=== PATIENT | female | born 1980 | race Caucasian/White ===

== ENCOUNTER 2019-02-11 09:00 | Emergency (ER) | payer OTHER, SELFPAY ==
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
--- OUTSIDE RECORDS SUMMARY | 2019-02-11 09:04 | XMS REPORT | Continuity of Care Document ---
:1980 Author Organization [facility] Address [address] [place] [address] Phone Unavailable Care Team Providers Name Role Phone TIM POTTER Primary Care Physician Insurance Providers Guarantor Leigh Coronado Address [address] [place] [address] Email [email or web address] Payer Low Income Program (Lmap) Policy Number [id number] Subscriber's Name Leigh Coronado Relationship Self / Same As Patient Group Number NA Group Name NA Effective Date 17 Expiration Date 18 Advance Directives Directive Response Recorded Date/Time Advance Directives No 06/26/15 2:50pm Advance Directive on File No 01/24/18 2:32pm Directive to Physicians/Living Will No 06/26/15 2:50pm Health Care Proxy No 06/26/15 2:50pm Organ Donor No 06/26/15 2:50pm Medical Power of Enterprise Business Architect No 06/26/15 2:50pm Patient/Family Given Education Material R/T Y - 01/24/18..AW 01/24/18 4:54pm Directives? Chief Complaint and Reason for Visit Chief Complaint Chest Pain Reason for Visit Chest wall pain Hypertension Problems Medical Problem Onset Date Status Acute [...] Unknown Acute Acute pulmonary embolus Unknown Acute Chest wall pain Unknown Acute Cocaine abuse Unknown Acute Elevated CK Unknown Acute Encounter for incision and drainage procedure Unknown Acute Gastritis Unknown Acute Hypertension Unknown Acute Internal derangement of right knee [...] Applicable Not Applicable Hx Physical Abuse No 01/24/2018 2:32pm Not Applicable Not Applicable Smoking Status Start Date Stop Date Current some day smoker Hospital Discharge Instructions No hospital discharge instruction information available. Plan of Care Discharge Date 01/24/18 6:05pm Instructions/Education Provided Chest Wall Pain Hypertension Forms Provided Portal Welcome Letter Prescriptions See Medication Section Referrals TIM POTTER Address: [address] [place] [phone] Additional Instructions/Education Recommend that you continue your Xarelto and will add Tylenol #3 to be taken as needed for pain. Also add Hydralazine 10 mg 2 times daily for your blood pressure. Follow up with your primary doctor in 2 days for re check of your blood pressure, or otherwise return to the ED if your condition worsens. Functional Status No functional status information available. Allergies, Adverse Reactions, Alerts Allergen Type Severity Reaction Status Last Updated Losartan ([id number]) Allergy Severe ACHING, DIFFICULTY Active 12/02/17 BREATHING Immunizations No immunization information available. Vital Signs Acute Vital Signs Vital Response Date/Time Blood Pressure 148/88 mm Hg 01/24/2018 6:32pm Pulse Pulse Rate (adult) 72 beats per minute (60 - 100) 01/24/2018 6:32pm Respiratory Rate 20 breaths per minute (10 - 24) 01/24/2018 6:32pm Temperature Source Oral 01/24/2018 6:32pm Height 6 ft 0 in 01/24/2018 2:32pm Weight 425.38 lb 01/24/2018 2:32pm Body Mass Index 57.7 kg/m^2 01/24/2018 2:32pm Results Laboratory Results Test Name Result Units Flags Reference Collection Result Comments Date/Time Date/Time Uric Acid 3.8 mg/dL 2.4-5.7 12/01/2017 12/01/2017 10:56am 11:28am Prothrombin 11.9 SECONDS 10.3-12.3 12/24/2017 12/24/2017 Time [...] 12/24/2017 Partial 6:00am 6:32am Thromboplast Time Urine HCG, NEGATIVE NEG 12/24/2017 12/24/2017 Qualitative [...] called to (LEAH). By MYRANDA APARICIO 12/24/17 @0836 Results read back for confirmation. Creatine Kinase 5.7 ng/ml H 0.0-3.6 12/24/2017 12/24/2017 MB 8:11am 8:37am DIAGNOSTIC CITERIA: CKMB CKMB RELATIVE INDEX SUGGESTIVE OF NON-AMI < or=5 N/A DE PAZ ZONE (INCONCLUSIVE) > 5 < or=4 SUGGESTIVE OF AMI >5 > 4 Myoglobin 186 ng/mL H 25-58 12/24/2017 12/24/2017 8:11am 8:38am White Blood 7.0 K/ul 4.0-11.5 01/24/2018 01/24/2018 Count 2:52am 3:10pm Red Blood Count 3.57 M/ul L 3.80-5.20 01/24/2018 01/24/2018 2:52am 3:10pm Hemoglobin 8.6 g/dl L 10.5-15.7 01/24/2018 01/24/2018 2:52am 3:10pm Hematocrit 27.6 % #L 34.0-50.0 01/24/2018 01/24/2018 2:52am 3:10pm Mean 77.4 fl L 78-98 01/24/2018 01/24/2018 Corpuscular 2:52am 3:10pm Volume Mean 24.0 pg L 26.2-33.4 01/24/2018 01/24/2018 Corpuscular 2:52am 3:10pm Hemoglobin Mean 31.0 g/dl L 31.5-36.2 01/24/2018 01/24/2018 Corpuscular 2:52am 3:10pm Hemoglobin Concent Red Cell 15.7 % H 11.5-15.5 01/24/2018 01/24/2018 Distribution 2:52am 3:10pm Width Platelet Count 289 K/ul 137-338 01/24/2018 01/24/2018 2:52am 3:10pm Mean Platelet 6.7 fl L 8.4-11.8 01/24/2018 01/24/2018 Volume 2:52am 3:10pm Neutrophils (%) 70.7 % 44.4-80.1 01/24/2018 01/24/2018 (Auto) 2:52am 3:10pm Lymphocytes (%) 20.3 % 10.0-50.0 01/24/2018 01/24/2018 (Auto) 2:52am 3:10pm Monocytes (%) 5.9 % 3.6-12.04 01/24/2018 01/24/2018 (Auto) 2:52am 3:10pm Eosinophils (%) 2.1 % 0.0-5.41 01/24/2018 01/24/2018 (Auto) 2:52am 3:10pm Basophils (%) 1.0 % H 0.0-0.79 01/24/2018 01/24/2018 (Auto) 2:52am 3:10pm D-Dimer 594 ng/mL H* <500 01/24/2018 01/24/2018 Results have been broadcasted to patient's location and 2:52am 3:30pm called to (FELIX). By MYRANDA APARICIO 01/24/18 @1528 Urine Color LIGHT 01/24/2018 01/24/2018 YELLOW 3:08pm 3:50pm Urine CLEAR CLEAR 01/24/2018 01/24/2018 Appearance 3:08pm 3:50pm Urine Glucose NEGATIVE NEGATIVE 01/24/2018 01/24/2018 3:08pm 3:50pm Urine Bilirubin NEGATIVE NEGATIVE 01/24/2018 01/24/2018 3:08pm 3:50pm Urine Ketones NEGATIVE NEGATIVE 01/24/2018 01/24/2018 3:08pm 3:50pm Urine Specific 1.014 1.003-1.03 01/24/2018 01/24/2018 [place] 0 3:08pm 3:50pm Urine Blood NEGATIVE NEGATIVE 01/24/2018 01/24/2018 3:08pm 3:50pm Urine pH 6.500 5-9 01/24/2018 01/24/2018 3:08pm 3:50pm Urine Protein NEGATIVE NEGATIVE 01/24/2018 01/24/2018 3:08pm 3:50pm Urine NORMAL mg/dL 0.2-1.0 01/24/2018 01/24/2018 Urobilinogen 3:08pm 3:50pm Urine Nitrate NEGATIVE NEGATIVE 01/24/2018 01/24/2018 3:08pm 3:50pm Urine Leukocyte NEGATIVE NEGATIVE 01/24/2018 01/24/2018 Esterase 3:08pm 3:50pm Urine RBC 1-5 /hpf 0-5 01/24/2018 01/24/2018 3:08pm 3:50pm Urine WBC 1-5 /hpf 0-5 01/24/2018 01/24/2018 3:08pm 3:50pm Urine 1-5 /hpf 0-5 01/24/2018 01/24/2018 Epithelial 3:08pm 3:50pm Cells Urine Bacteria SMALL(1+) /hpf None 01/24/2018 01/24/2018 Detect 3:08pm 3:50pm Urine Casts None /lpf None 01/24/2018 01/24/2018 Detected Detect 3:08pm 3:50pm Urine Culture YES 01/24/2018 01/24/2018 Reflexed 3:08pm 3:50pm Random Glucose 117 mg/dL H 74-106 01/24/2018 01/24/2018 2:52am 3:13pm Blood Urea 11 mg/dL 6-20 01/24/2018 01/24/2018 Nitrogen 2:52am 3:13pm Serum 276 L 280-300 01/24/2018 01/24/2018 Osmolality 2:52am 3:13pm Creatinine 0.7 mg/dL 0.50-0.90 01/24/2018 01/24/2018 2:52am 3:13pm Glomerular > 60.00 01/24/2018 01/24/2018 GFR RESULTS ARE REPORTED IN mL/min/1.73m2. Filtration Rate 2:52am 3:13pm Calc Normal GFR: >60mL/min Moderately decreased GFR: 30-59 mL/min Severely decreased GFR: 15-29 mL/min Kidney Failure (or Dialysis): <15 mL/min The calculated eGFR is not valid for patients younger than 18 years or older than 75 years. BUN/Creatinine 15.7 12-01/24/2018 01/24/2018 Ratio 2:52am 3:13pm Sodium Level 138 mmol/L 135-145 01/24/2018 01/24/2018 2:52am 3:13pm Potassium Level 4.5 mmol/L 3.5-5.2 01/24/2018 01/24/2018 2:52am 3:13pm Chloride Level 102 mmol/L 98-108 01/24/2018 01/24/2018 2:52am 3:13pm Carbon Dioxide 25 mmol/L 21-32 01/24/2018 01/24/2018 Level 2:52am 3:13pm Anion Gap 15.5 mEq/L 12-20 01/24/2018 01/24/2018 2:52am 3:13pm Calcium Level 8.9 mg/dL 8.6-10.0 01/24/2018 01/24/2018 2:52am 3:13pm Magnesium Level 1.6 mg/dL 1.6-2.6 01/24/2018 01/24/2018 2:52am 3:15pm Total Protein 6.5 g/dL L 6.6-8.7 01/24/2018 01/24/2018 2:52am 3:13pm Albumin 3.6 g/dL 3.5-5.2 01/24/2018 01/24/2018 2:52am 3:13pm Globulin 2.9 gm/dL 01/24/2018 01/24/2018 2:52am 3:13pm Albumin/Globuli 1.2 >1.0 01/24/2018 01/24/2018 n Ratio 2:52am 3:13pm Total Bilirubin < 0.3 mg/dL 0.0-1.2 01/24/2018 01/24/2018 2:52am 3:13pm Aspartate Amino 20 U/L 15-32 01/24/2018 01/24/2018 Transf 2:52am 3:13pm (AST/SGOT) Alanine 25 U/L 0-33 01/24/2018 01/24/2018 Aminotransferas 2:52am 3:13pm e (ALT/SGPT) CF-Vpr-M-Type 507 pg/mL H 0-125 01/24/2018 01/24/2018 Natriuretic 2:52am 3:30pm Peptide Total Alkaline 98 U/L 35-105 01/24/2018 01/24/2018 Phosphatase 2:52am 3:13pm Urine NEGATIVE NG/ML NEGATIVE 01/24/2018 01/24/2018 Amphetamines 3:08pm 3:56pm Screen Urine NEGATIVE NG/ML NEGATIVE 01/24/2018 01/24/2018 Barbiturates, 3:08pm 3:56pm Quantitative Urine NEGATIVE NG/ML NEGATIVE 01/24/2018 01/24/2018 Benzodiazepines 3:08pm 3:56pm Screen Urine POSITIVE NG/ML H NEGATIVE 01/24/2018 01/24/2018 Cannabinoids 3:08pm 4:18pm Urine Cocaine NEGATIVE NG/ML NEGATIVE 01/24/2018 01/24/2018 Metabolite 3:08pm 3:56pm Urine Opiates NEGATIVE NG/ML NEGATIVE 01/24/2018 01/24/2018 Screen 3:08pm 3:56pm Urine NEGATIVE NG/ML NEGATIVE 01/24/2018 01/24/2018 Phencyclidine 3:08pm 3:56pm (PCP) Level Methadone Level NEGATIVE NG/ML NEGATIVE 01/24/2018 01/24/2018 3:08pm 3:56pm Propoxyphene NEGATIVE NG/ML NEGATIVE 01/24/2018 01/24/2018 Level 3:08pm 3:56pm Oxycodone Level NEGATIVE NG/ML NEGATIVE 01/24/2018 01/24/2018 3:08pm 3:56pm Urine Drug . 01/24/2018 01/24/2018 DRUGS OF ABUSE CUT-OFF VALUES Screen Note 3:08pm 4:17pm AMPHETAMINES (AMPH) NEGATIVE (CUT OFF CONC: 1000 [...] CONFIRMATION AND QUANTITATION AVAILABLE UPON MD REQUEST. Thyroid 1.66 uIU/mL 0.36-3.74 01/24/2018 01/24/2018 Stimulating 2:52am 3:30pm Hormone (TSH) Troponin I < 0.30 ng/mL 0.0-0.5 01/24/2018 01/24/2018 Published clinical studies have shown elevations of cTnI in 2:52am 3:30pm patients with myocardial injury, as seen in unstable angina pectoris, cardiac contusions, and heart transplants. Elevations have also been seen in patients with rhabdomyolysis and polymyositis. Elevated troponin levels point to myocardial injury, but are not necessarily indicative of an ischemic mechanism. The term IN should be used when there is evidence of cardiac damage, as detected by marker proteins in a clinical setting consistent with myocardial ischemia. If the clinical circumstance suggests that an ischemic mechanism is unlikely, other causes of cardiac injury should be considered. For diagnostic purposes, the results should always be assessed in conjunction with the patient's medical history, clinical examination and other findings. Procedures Procedure Status Date Provider(s) CT ANGIOGRAPHY CHEST Completed 12/01/17 X-RAY EXAM [...] Completed 12/01/17 CT ANGIOGRAPHY CHEST Completed 12/10/17 EMERGENCY DEPT VISIT Completed 12/24/17 THER/PROPH/DIAG INJ IV PUSH Completed 12/24/17 HYDRATE IV INFUSION ADD-ON Completed 12/24/17 X-RAY EXAM CHEST 1 VIEW Completed 12/24/17 TX/PRO/DX INJ NEW DRUG ADDON Completed 12/24/17 COMPLETE CBC W/AUTO DIFF WBC Completed 12/24/17 CREATINE MB FRACTION Completed 12/24/17 CREATINE MB FRACTION Completed 12/24/17 ASSAY OF CK (CPK) Completed 12/24/17 ASSAY OF CK (CPK) Completed 12/24/17 ASSAY OF MAGNESIUM Completed 12/24/17 ASSAY OF MYOGLOBIN Completed 12/24/17 ASSAY OF MYOGLOBIN Completed 12/24/17 PROTHROMBIN TIME Completed 12/24/17 THROMBOPLASTIN TIME PARTIAL Completed 12/24/17 ROUTINE VENIPUNCTURE Completed 12/24/17 ASSAY OF TROPONIN QUANT Completed 12/24/17 ASSAY OF TROPONIN QUANT Completed 12/24/17 COMPREHEN METABOLIC PANEL Completed 12/24/17 ASSAY OF NATRIURETIC PEPTIDE Completed 12/24/17 DRUG TEST PRSMV CHEM ANLYZR Completed 12/24/17 URINE TEST Completed 12/24/17 ELECTROCARDIOGRAM TRACING Completed 12/24/17 URINALYSIS AUTO W/SCOPE Completed 12/24/17 CT ANGIOGRAPHY CHEST Completed 01/05/18 COMPLETE CBC W/AUTO DIFF WBC Completed 01/12/18 ROUTINE VENIPUNCTURE Completed 01/12/18 Computed tomography angiography of chest Completed 12/01/17 TIM POTTER for pulmonary embolism X-ray of chest, two views Completed 12/01/17 TIM POTTER Computed tomography angiography of chest Completed 12/03/17 FARSHAD FAITH JR, MD for pulmonary embolism X-ray of chest, single view Completed 12/03/17 KRISTEN SERNA AIRPORT ENGINEER-C Computed tomography angiography of chest Completed 12/10/17 CEDRICK CORTÉS MD for pulmonary embolism X-ray of chest, single view Completed 12/24/17 JACKSON MCFARLANE MD Computed tomography angiography of chest Completed 01/05/18 TIM POTTER for pulmonary embolism Computed tomography angiography of chest Completed 01/24/18 LALITHA ANGLIN MD for pulmonary embolism Encounters Encounter Location Arrival/Admit Date Discharge/Depart Date Attending Provider Departed [place] 01/24/18 2:28pm 01/24/18 6:05pm LALITHA ANGLIN [facility] Registered [place] 01/12/18 11:53am TIM POTTER [facility] Registered [facility] 01/12/18 9:53am TIM POTTER Provider Clinic PA Originated Registered [place] 01/05/18 8:05am TIM POTTER [facility] Departed [place] 12/24/17 5:55am 12/24/17 9:58am MAEVE [facility] Registered [place] 12/10/17 12:45pm CEDRICK CORTÉS MD Medical Ctr Registered [facility] 12/06/17 9:37am TIM POTTER Provider Clinic PA Originated Discharged [place] 12/01/17 2:06pm 12/04/17 3:00pm MARCELL LOPEZ, Inpatient [facility] FARSHAD Elder MD Medical Ctr Registered [place] 12/01/17 10:35am TIM POTTER [facility] Registered [facility] 12/01/17 8:28am TIM POTTER Provider Clinic PA Originated Recent Diagnosis
--- OUTSIDE RECORDS SUMMARY | 2019-02-11 09:04 | XMS REPORT | Continuity of Care Document ---
:1980 Author Organization [facility] Address [address] [place] [address] Phone Unavailable Care Team Providers Name Role Phone TIM POTTER Primary Care Physician Insurance Providers Guarantor Shasta Coronado Address [address] [phone] Email [email or web address] Payer Indigent Care Program (Map) Policy Number [id number] Subscriber's Name Shasta Coronado Relationship Self / Same As Patient Group Number NA Group Name NA Effective Date 18 Expiration Date 18 Advance Directives Directive Response Recorded Date/Time Advance Directives No 06/26/15 2:50pm Directive to Physicians/Living Will No 06/26/15 2:50pm Health Care Proxy No 06/26/15 2:50pm Organ Donor No 06/26/15 2:50pm Medical Power of Nurse Midwife/Clinical Instructor No 06/26/15 2:50pm Problems Medical Problem Onset Date Status Acute [...] Lovastatin 40 Mg ORAL Once Daily At (Lovastatin 20 Mg Bedtime for Days Tablet [...] Current some day smoker Hospital Discharge Instructions Current inpatient/outpatient. Discharge instructions are currently unavailable. Plan of Care Current inpatient/outpatient. The plan of care is currently unavailable. Functional Status No functional status information available. Allergies, Adverse Reactions, Alerts Allergen Type Severity Reaction Status Last Updated Losartan ([id number]) Allergy Severe ACHING, DIFFICULTY Active 12/02/17 BREATHING Immunizations No immunization information available. Vital Signs Acute Vital Signs Vital Response Date/Time Blood Pressure 171/83 mm Hg 01/25/2018 6:21pm Pulse Pulse Rate (adult) 69 beats per minute (60 - 100) 01/25/2018 6:21pm Respiratory Rate 18 breaths per minute (10 - 24) 01/25/2018 2:24pm Temperature Source Temporal Artery Scan 01/25/2018 3:32pm Results Laboratory Results Test Name Result Units Flags Reference Collection Result Comments Date/Time Date/Time Prothrombin 11.9 SECONDS 10.3-12.3 12/24/2017 12/24/2017 Time [...] 12/24/17 @0838 Results read back for confirmation. Creatine Kinase 5.7 ng/ml H 0.0-3.6 12/24/2017 12/24/2017 MB 8:11am 8:37am DIAGNOSTIC CITERIA: CKMB CKMB RELATIVE INDEX SUGGESTIVE OF NON-AMI < or=5 N/A DE PAZ ZONE (INCONCLUSIVE) > 5 < or=4 SUGGESTIVE OF AMI >5 > 4 Myoglobin 186 ng/mL H 25-58 12/24/2017 12/24/2017 8:11am 8:38am D-Dimer 594 ng/mL H* <500 01/24/2018 01/24/2018 [...] 3:50pm Urine Specific 1.014 1.003-1.03 01/24/2018 01/24/2018 [place] 0 3:08pm 3:50pm Urine Blood NEGATIVE NEGATIVE [...] or older than 75 years. BUN/Creatinine 15.7 12-20 01/24/2018 01/24/2018 Ratio 2:52am 3:13pm Sodium Level 138 mmol/L 135-145 01/24/2018 01/24/2018 2:52am 3:13pm Potassium Level 4.5 mmol/L 3.5-5.2 01/24/2018 01/24/2018 2:52am 3:13pm Chloride Level 102 mmol/L 98-108 01/24/2018 01/24/2018 2:52am 3:13pm Carbon Dioxide 25 mmol/L 21-32 01/24/2018 01/24/2018 Level 2:52am 3:13pm Anion Gap 15.5 mEq/L 12-01/24/2018 01/24/2018 2:52am 3:13pm Calcium Level 8.9 mg/dL [...] 01/24/2018 01/24/2018 Aminotransferas 2:52am 3:13pm e (ALT/SGPT) XG-Ekc-T-Type 507 pg/mL H 0-125 01/24/2018 01/24/2018 Natriuretic [...] indicative of an ischemic mechanism. The term NH should be used when there is evidence of cardiac damage, as detected by marker proteins in a clinical setting consistent with myocardial ischemia. If the clinical circumstance suggests that an ischemic mechanism is unlikely, other causes of cardiac injury should be considered. For diagnostic purposes, the results should always be assessed in conjunction with the patient's medical history, clinical examination and other findings. White Blood 7.2 K/ul 4.0-11.5 02/01/2018 02/01/2018 Count 9:04am 9:44am Red Blood Count 4.75 M/ul 3.80-5.20 02/01/2018 02/01/2018 9:04am 9:44am Hemoglobin 11.8 g/dl 10.5-15.7 02/01/2018 02/01/2018 9:04am 9:44am Hematocrit 37.3 % # 34.0-50.0 02/01/2018 02/01/2018 9:04am 9:44am Mean 78.5 fl 78-98 02/01/2018 02/01/2018 Corpuscular 9:04am 9:44am Volume Mean 24.9 pg L 26.2-33.4 02/01/2018 02/01/2018 Corpuscular 9:04am 9:44am Hemoglobin Mean 31.7 g/dl 31.5-36.2 02/01/2018 02/01/2018 Corpuscular 9:04am 9:44am Hemoglobin Concent Red Cell 16.2 % H 11.5-15.5 02/01/2018 02/01/2018 Distribution 9:04am 9:44am Width Platelet Count 287 K/ul 137-338 02/01/2018 02/01/2018 9:04am 9:44am Mean Platelet 6.3 fl L 8.4-11.8 02/01/2018 02/01/2018 Volume 9:04am 9:44am Neutrophils (%) 60.2 % 44.4-80.1 02/01/2018 02/01/2018 (Auto) 9:04am 9:44am Lymphocytes (%) 29.0 % 10.0-50.0 02/01/2018 02/01/2018 (Auto) 9:04am 9:44am Monocytes (%) 7.5 % 3.6-12.04 02/01/2018 02/01/2018 (Auto) 9:04am 9:44am Eosinophils (%) 2.1 % 0.0-5.41 02/01/2018 02/01/2018 (Auto) 9:04am 9:44am Basophils (%) 1.2 % H 0.0-0.79 02/01/2018 02/01/2018 (Auto) 9:04am 9:44am Vitamin B12 454.3 pg/mL 211-946 02/15/2018 02/15/2018 Level 10:18am 11:11am Folate 9.21 ng/mL 4.78-24.2 02/15/2018 02/15/2018 10:18am 11:11am Procedures Procedure Status Date Provider(s) EMERGENCY DEPT VISIT Completed 12/24/17 THER/PROPH/DIAG INJ [...] WBC Completed 01/12/18 ROUTINE VENIPUNCTURE Completed 01/12/18 EMERGENCY DEPT VISIT Completed 01/24/18 CT ANGIOGRAPHY CHEST Completed 01/24/18 THER/PROPH/DIAG INJ IV PUSH Completed 01/24/18 TX/PRO/DX INJ NEW DRUG ADDON Completed 01/24/18 COMPLETE CBC W/AUTO DIFF WBC Completed 01/24/18 ASSAY OF MAGNESIUM Completed 01/24/18 ASSAY THYROID STIM HORMONE Completed 01/24/18 URINALYSIS AUTO W/SCOPE Completed 01/24/18 ROUTINE VENIPUNCTURE Completed 01/24/18 ASSAY OF TROPONIN QUANT Completed 01/24/18 COMPREHEN METABOLIC PANEL Completed 01/24/18 FIBRIN DEGRADJ D-DIMER Completed 01/24/18 ASSAY OF NATRIURETIC PEPTIDE Completed 01/24/18 URINE BACTERIA CULTURE Completed 01/24/18 DRUG TEST PRSMV CHEM ANLYZR Completed 01/24/18 ELECTROCARDIOGRAM TRACING Completed 01/24/18 TX/PRO/DX INJ SAME DRUG PATTERN KEEPER Completed 01/24/18 Completed 01/24/18 MORPHINE SULFATE INJECTION Completed 01/24/18 MORPHINE SULFATE INJECTION Completed 01/24/18 CONTRST X-RAY UPPR GI TRACT Completed 01/27/18 COMPLETE CBC W/AUTO DIFF WBC Completed 02/01/18 ROUTINE VENIPUNCTURE Completed 02/01/18 VITAMIN B-12 Completed 02/15/18 ASSAY OF FOLIC ACID SERUM Completed 02/15/18 ROUTINE VENIPUNCTURE Completed 02/15/18 X-ray of chest, single view Completed 12/24/17 JACKSON MCFARLANE MD Computed tomography angiography of chest Completed 01/05/18 TIM POTTER for pulmonary embolism Computed tomography angiography of chest Completed 01/24/18 LALITHA ANGLIN MD for pulmonary embolism X-ray of upper gastrointestinal tract with Completed 01/27/18 TIM POTTER small bowel follow through Encounters Encounter Location Arrival/Admit Date Discharge/Depart Date Attending Provider Registered [place] 02/15/18 10:09am TIM POTTER [facility] Registered [facility] 02/01/18 9:52am TIM POTTER Provider Clinic PA Originated Registered [place] 02/01/18 8:52am TIM POTTER [facility] Registered [place] 01/27/18 8:10am TIM POTTER [facility] Discharged [place] 01/25/18 1:12pm 02/18/18 11:59pm TIM POTTER [facility] Registered [facility] 01/25/18 10:52am TIM POTTER Provider Clinic PA Originated Departed [place] 01/24/18 2:28pm 01/24/18 6:05pm LALITHA ANGLIN Emergency Room [facility] Registered [place] 01/12/18 11:53am TIM POTTER [facility] Registered [facility] 01/12/18 9:53am TIM POTTER Provider Clinic PA Originated Registered [place] 01/05/18 8:05am TIM POTTER [facility] Departed [place] 12/24/17 5:55am 12/24/17 9:58am MAEVE Emergency Room [facility] Farfan MD Medical Ctr
--- OUTSIDE RECORDS SUMMARY | 2019-02-11 09:05 | XMS REPORT | Continuity of Care Document ---
:1980 Author Organization [facility] Address [address] [place] [address] Phone Unavailable Care Team Providers Name Role Phone TMI POTTER Primary Care Physician Insurance Providers Guarantor Shasta Coronado Address [address] [place] [address] Email Payer Indigent Care Program (Map) Policy Number [id number] Subscriber's Name Shasta Coronado Relationship Self / Same As Patient Group Number NA Group Name NA Effective Date 18 Expiration Date 18 Advance Directives Directive Response Recorded Date/Time Advance Directives No 06/26/15 2:50pm Advance Directive on File No 03/23/18 12:10pm Directive to Physicians/Living Will No 06/26/15 2:50pm Health Care Proxy No 06/26/15 2:50pm Organ Donor No 06/26/15 2:50pm Medical Power of Suede Cleaner No 06/26/15 2:50pm Patient/Family Given Education Material R/T Y - 03/23/18....SBM 03/23/18 12 :47pm Directives? Chief Complaint and Reason for Visit Chief Complaint Back Pain or Injury Reason for Visit Muscle spasm Lumbar pain Fall Problems Medical Problem Onset Date Status Acute [...] for incision and drainage procedure Unknown Acute Fall Unknown Acute Gastritis Unknown Acute Hypertension Unknown Acute Internal derangement of right knee Unknown Acute Lumbar pain Unknown Acute Muscle spasm Unknown Acute Musculoskeletal back pain Unknown Acute [...] Applicable Not Applicable Hx Physical Abuse No 03/23/2018 12:10pm Not Applicable Not Applicable Smoking Status Start Date Stop Date Current some day smoker Hospital Discharge Instructions No hospital discharge instruction information available. Plan of Care Discharge Date 03/23/18 1:34pm Instructions/Education Provided Back Pain, Adult Fall Prevention in the Home Forms Provided Portal Welcome Letter Prescriptions See Medication Section Referrals TIM POTTER Address: [address] [place] [id number] Additional Instructions/Education DIAGNOSIS: BACK PAIN, MUSCLE SPASMS, FALL PRESCRIPTIONS: TYLENOL #3 ONE TAB EVERY 8 HOURS NEEDED FOR PAIN (12 TABS), FLEXERIL 10MG BY MOUTH UP TO 3 TIMES A DAYS NEEDED FOR MUSCLE SPASMS (12 TABS)-- GIVEN FLEXERIL, TORADOL, DEMEROL AND PHENERGAN IN ER FOLLOW UP: WITH PRIMARY CARE IN 2 DAYS * RETURN TO EMERGENCY DEPARTMENT FOR ANY CHANGE IN CONDITION OR WORSENING* INSTRUCTIONS: DRINK PLENTY OF FLUIDS IBUPROFEN PER BOTTLE DIRECTIONS EVERY 8 HOURS FOR PAIN ICE PACKS AND WARM COMPRESSES ALTERNATING STRETCHING EXERCISES Functional Status No functional status information available. Allergies, Adverse Reactions, Alerts Allergen Type Severity Reaction Status Last Updated Losartan ([id number]) Allergy Severe ACHING, DIFFICULTY Active 12/02/17 BREATHING Immunizations No immunization information available. Vital Signs Acute Vital Signs Vital Response Date/Time Blood Pressure 141/86 mm Hg 03/23/2018 1:37pm Pulse Pulse Rate (adult) 120 beats per minute (60 - 100) 03/23/2018 1:37pm Respiratory Rate 22 breaths per minute (10 - 24) 03/23/2018 1:37pm Temperature Source Oral 03/23/2018 1:37pm Height 6 ft 0 in 03/23/2018 12:10pm Weight 400 lb 03/23/2018 12:10pm Body Mass Index 54.2 kg/m^2 03/23/2018 12:10pm Results Laboratory Results Test Name Result Units Flags Reference Collection Result Comments Date/Time Date/Time D-Dimer 594 ng/mL H* <500 01/24/2018 01/24/2018 Results have been broadcasted to patient's location and 2:52am 3:30pm called to (FELIX). By MYRANDA APARICIO 01/24/18 @1528 Urine Color LIGHT 01/24/2018 01/24/2018 YELLOW 3:08pm 3:50pm Urine Appearance CLEAR CLEAR 01/24/2018 01/24/2018 3:08pm 3:50pm Urine Glucose NEGATIVE NEGATIVE 01/24/2018 01/24/2018 3:08pm 3:50pm Urine Bilirubin NEGATIVE NEGATIVE 01/24/2018 01/24/2018 3:08pm 3:50pm Urine Ketones NEGATIVE NEGATIVE 01/24/2018 01/24/2018 3:08pm 3:50pm Urine Specific 1.014 1.003-1.03 01/24/2018 01/24/2018 Bradley 0 3:08pm 3:50pm Urine Blood NEGATIVE NEGATIVE [...] /hpf 0-5 01/24/2018 01/24/2018 3:08pm 3:50pm Urine Epithelial 1-5 /hpf 0-5 01/24/2018 01/24/2018 Cells 3:08pm 3:50pm Urine Bacteria SMALL(1+) /hpf None 01/24/2018 01/24/2018 Detect 3:08pm 3:50pm Urine Casts None /lpf None 01/24/2018 01/24/2018 Detected Detect 3:08pm 3:50pm Urine Culture YES 01/24/2018 01/24/2018 Reflexed 3:08pm 3:50pm Random Glucose 117 mg/dL H 74-106 01/24/2018 01/24/2018 2:52am 3:13pm Blood Urea 11 mg/dL 6-20 01/24/2018 01/24/2018 Nitrogen 2:52am 3:13pm Serum Osmolality 276 L 280-300 01/24/2018 01/24/2018 2:52am 3:13pm Creatinine 0.7 mg/dL 0.50-0.90 01/24/2018 [...] Globulin 2.9 gm/dL 01/24/2018 01/24/2018 2:52am 3:13pm Albumin/Globulin 1.2 >1.0 01/24/2018 01/24/2018 Ratio 2:52am 3:13pm Total Bilirubin < 0.3 mg/dL 0.0-1.2 01/24/2018 01/24/2018 2:52am 3:13pm Aspartate Amino 20 U/L 15-32 01/24/2018 01/24/2018 Transf (AST/SGOT) 2:52am 3:13pm Alanine 25 U/L 0-33 01/24/2018 01/24/2018 Aminotransferase 2:52am 3:13pm (ALT/SGPT) EP-Mho-Y-Type 507 pg/mL H 0-125 01/24/2018 01/24/2018 Natriuretic [...] NEGATIVE 01/24/2018 01/24/2018 3:08pm 3:56pm Urine Drug Screen . 01/24/2018 01/24/2018 DRUGS OF ABUSE CUT-OFF VALUES Note 3:08pm 4:17pm AMPHETAMINES (AMPH) NEGATIVE (CUT [...] indicative of an ischemic mechanism. The term DE should be used when there is evidence [...] clinical examination and other findings. White Blood Count 7.2 K/ul 4.0-11.5 02/01/2018 02/01/2018 9:04am 9:44am Red Blood Count 4.75 M/ul 3.80-5.20 02/01/2018 02/01/2018 9:04am 9:44am Hemoglobin 11.8 g/dl 10.5-15.7 02/01/2018 02/01/2018 9:04am 9:44am Hematocrit 37.3 % # 34.0-50.0 02/01/2018 02/01/2018 9:04am 9:44am Mean Corpuscular 78.5 fl 78-98 02/01/2018 02/01/2018 Volume 9:04am 9:44am Mean Corpuscular 24.9 pg L 26.2-33.4 02/01/2018 02/01/2018 Hemoglobin 9:04am 9:44am Mean Corpuscular 31.7 g/dl 31.5-36.2 02/01/2018 02/01/2018 Hemoglobin 9:04am 9:44am Concent Red Cell 16.2 % H 11.5-15.5 [...] 02/01/2018 02/01/2018 (Auto) 9:04am 9:44am Vitamin B12 Level 454.3 pg/mL 211-946 02/15/2018 02/15/2018 10:18am 11:11am Folate 9.21 ng/mL 4.78-24.2 02/15/2018 02/15/2018 10:18am 11:11am Procedures Procedure Status Date Provider(s) EMERGENCY DEPT VISIT Completed 01/24/18 CT ANGIOGRAPHY [...] TRACING Completed 01/24/18 [place]/PRO/DX INJ SAME DRUG FRONT END DEVELOPER JAVASCRIPT HTML CSS Completed 01/24/18 Completed 01/24/18 MORPHINE SULFATE INJECTION Completed 01/24/18 MORPHINE SULFATE INJECTION Completed 01/24/18 CONTRST X-RAY UPPR GI TRACT Completed 01/27/18 COMPLETE CBC W/AUTO DIFF WBC Completed 02/01/18 ROUTINE VENIPUNCTURE Completed 02/01/18 VITAMIN B-12 Completed 02/15/18 ASSAY OF FOLIC ACID SERUM Completed 02/15/18 ROUTINE VENIPUNCTURE Completed 02/15/18 Computed tomography angiography of Completed 01/24/18 LALITHA ANGLIN MD chest for pulmonary embolism X-ray of upper gastrointestinal Completed 01/27/18 TIM POTTER tract with small bowel follow through X-ray of sacrum and coccyx, two or Completed 03/23/18 ALLISON CHAN APRN , SALES ORDER COORDINATOR-BC more views X-ray of lumbar spine, AP and Completed 03/23/18 ALLISON CHAN SYSTEM DEVELOPMENT MANAGER, SALES ORDER COORDINATOR -BC lateral views Encounters Encounter Location Arrival/Admit Date Discharge/Depart Date Attending Provider Departed [place] 03/23/18 12:01pm 03/23/18 1:34pm LAYA HAWKINS MD Emergency Room [facility] Registered [place] 02/15/18 10:09am TIM POTTER [facility] Registered [facility] 02/01/18 9:52am TIM POTTER [facility] Originated Registered [place] 02/01/18 8:52am TIM POTTER [facility] Registered [place] 01/27/18 8:10am TIM POTTER [facility] Discharged [place] 01/25/18 1:12pm 02/18/18 11:59pm TIM POTTER [facility] Registered [facility] 01/25/18 10:52am TIM POTTER [facility] Orig[facility] Departed [place] 01/24/18 2:28pm 01/24/18 6:05pm LALITHA ANGLIN Emergency Room [facility] Recent Diagnosis
--- OUTSIDE RECORDS SUMMARY | 2019-02-11 09:05 | XMS REPORT | Continuity of Care Document ---
:1980 Author Organization [facility] Address [address] [place] [address] Phone Unavailable Care Team Providers Name Role Phone TIM POTTER Primary Care Physician Insurance Providers Guarantor Shasta Coronado Address [address] [place] [address] Email [email or web address] Payer Indigent Care Program (Map) Policy Number [id number] Subscriber's Name Shasta Coronado Relationship Self / Same As Patient Group Number NA Group Name NA Effective Date 18 Expiration Date 18 Advance Directives Directive Response Recorded Date/Time Advance Directives No 06/26/15 2:50pm Directive to Physicians/Living Will No 06/26/15 2:50pm Health Care Proxy No 06/26/15 2:50pm Organ Donor No 06/26/15 2:50pm Medical Power of Engineering Clerk No 06/26/15 2:50pm Patient/Family Given Education Material R/T Y - 05/10/18....SBM 05/10/18 3: 47pm Directives? Chief Complaint and Reason for Visit Chief Complaint Influenza Reason for Visit Influenza-like illness Problems Medical Problem Onset Date Status Acute [...] Tab, 1 Tab Oral Levofloxacin (Levaquin 500 Mg *) Daily for Infection 10/01/16 Discontinued 500 Mg [...] 1 Cap Oral Tramadol Hcl (Ultram 50 Mg *) 50 Three Times A Day Discontinued Mg Tab, 50 Mg Oral Social History Social History Problem Response Recorded Date/Time Onset Date Status Hx Alcohol Use No 10/21/2017 7:38am Not Applicable Not Applicable Hx Physical Abuse No 05/10/2018 3:26pm Not Applicable Not Applicable Smoking Status Start Date Stop Date Current some day smoker Hospital Discharge Instructions No hospital discharge instruction information available. Plan of Care Discharge Date 05/10/18 4:52pm Instructions/Education Provided Viral Respiratory Infection, [id number] Forms Provided Portal Welcome Letter Prescriptions See Medication Section Referrals TIM POTTER Address: [address] [place] [id number] Additional Instructions/Education Rx Proair MDI, re-eval by clinic MD in 1 week Functional Status No functional status information available. Allergies, Adverse Reactions, Alerts Allergen Type Severity Reaction Status Last Updated Losartan ([id number]) Allergy Severe ACHING, DIFFICULTY Active 12/02/17 BREATHING Immunizations No immunization information available. Vital Signs Acute Vital Signs Vital Response Date/Time Blood Pressure 172/93 mm Hg 05/10/2018 4:54pm Pulse Pulse Rate (adult) 69 beats per minute (60 - 100) 05/10/2018 4:54pm Respiratory Rate 20 breaths per minute (10 - 24) 05/10/2018 4:54pm Temperature Source Oral 05/10/2018 4:54pm Height 6 ft 0 in 05/10/2018 3:26pm Weight 400 lb 05/10/2018 3:26pm Body Mass Index 54.2 kg/m^2 05/10/2018 3:26pm Results Laboratory Results Test Name Result Units Flags Reference Collection Result Comments Date/Time Date/Time Urine Color YELLOW 04/25/2018 04/25/2018 10:20am 10:51am Urine Appearance SL CLOUDY A CLEAR 04/25/2018 04/25/2018 10:20am 10:51am Urine Glucose NEGATIVE NEGATIVE 04/25/2018 04/25/2018 10:20am 10:51am Urine Bilirubin NEGATIVE NEGATIVE 04/25/2018 04/25/2018 10:20am 10:51am Urine Ketones NEGATIVE NEGATIVE 04/25/2018 04/25/2018 10:20am 10:51am Urine Specific 1.030 1.003-1.03 04/25/2018 04/25/2018 [place] 0 10:20am 10:51am Urine Blood NEGATIVE NEGATIVE 04/25/2018 04/25/2018 10:20am 10:51am Urine pH 6.000 5-9 04/25/2018 04/25/2018 10:20am 10:51am Urine Protein TRACE NEGATIVE 04/25/2018 04/25/2018 10:20am 10:51am Urine Urobilinogen NORMAL mg/dL 0.2-1.0 04/25/2018 04/25/2018 10:20am 10:51am Urine Nitrate NEGATIVE NEGATIVE 04/25/2018 04/25/2018 10:20am 10:51am Urine Leukocyte NEGATIVE NEGATIVE 04/25/2018 04/25/2018 Esterase 10:20am 10:51am Urine RBC 1-5 /hpf 0-5 04/25/2018 04/25/2018 10:20am 10:50am Urine WBC 1-5 /hpf 0-5 04/25/2018 04/25/2018 10:20am 10:50am Urine Epithelial 6-10 /hpf 0-5 04/25/2018 04/25/2018 Cells 10:20am 10:50am Urine Bacteria MODERATE /hpf H None 04/25/2018 04/25/2018 (2+) Detect 10:20am 10:50am Urine Casts 2-5 /lpf None 04/25/2018 04/25/2018 Detect 10:20am 10:50am Urine Culture YES 04/25/2018 04/25/2018 Reflexed 10:20am 10:50am Random Glucose 115 mg/dL H 74-106 04/25/2018 04/25/2018 10:20am 10:49am Blood Urea 14 mg/dL 6-20 04/25/2018 04/25/2018 Nitrogen 10:20am 10:49am Serum Osmolality 275 L 280-300 04/25/2018 04/25/2018 10:20am 10:49am Creatinine 0.7 mg/dL 0.50-0.90 04/25/2018 04/25/2018 10:20am 10:49am Glomerular > 60.00 04/25/2018 04/25/2018 GFR RESULTS ARE REPORTED IN mL/min/1.73m2. Filtration Rate 10:20am 10:49am Calc Normal GFR: >60mL/min Moderately decreased GFR: 30-59 mL/min Severely decreased GFR: 15-29 mL/min Kidney Failure (or Dialysis): <15 mL/min The calculated eGFR is not valid for patients younger than 18 years or older than 75 years. BUN/Creatinine 20.0 12-04/25/2018 04/25/2018 Ratio 10:20am 10:49am Sodium Level 137 mmol/L 135-145 04/25/2018 04/25/2018 10:20am 10:49am Potassium Level 4.4 mmol/L 3.5-5.2 04/25/2018 04/25/2018 10:20am 10:49am Chloride Level 103 mmol/L 98-108 04/25/2018 04/25/2018 10:20am 10:49am Carbon Dioxide 26 mmol/L 21-32 04/25/2018 04/25/2018 Level 10:20am 10:49am Anion Gap 12.4 mEq/L 12-04/25/2018 04/25/2018 10:20am 10:49am Calcium Level 9.2 mg/dL 8.6-10.0 04/25/2018 04/25/2018 10:20am 10:49am Magnesium Level 1.9 mg/dL 1.6-2.6 04/25/2018 04/25/2018 10:20am 10:49am Total Protein 7.3 g/dL 6.6-8.7 04/25/2018 04/25/2018 10:20am 10:49am Albumin 3.9 g/dL 3.5-5.2 04/25/2018 04/25/2018 10:20am 10:49am Globulin 3.4 gm/dL 04/25/2018 04/25/2018 10:20am 10:49am Albumin/Globulin 1.1 >1.0 04/25/2018 04/25/2018 Ratio 10:20am 10:49am Total Bilirubin < 0.3 mg/dL 0.0-1.2 04/25/2018 04/25/2018 10:20am 10:49am Aspartate Amino 10 U/L L 15-32 04/25/2018 04/25/2018 Transf (AST/SGOT) 10:20am 10:49am Alanine 12 U/L 0-33 04/25/2018 04/25/2018 Aminotransferase 10:20am 10:49am (ALT/SGPT) Hemoglobin A1c 5.8 % 4.0-6.0 04/25/2018 04/25/2018 10:20am 10:45am Total Alkaline 101 U/L 35-105 04/25/2018 04/25/2018 Phosphatase 10:20am 10:49am Urine Microalbumin < 12.0 mg/L 0-20 04/25/2018 04/25/2018 10:20am 10:49am Cholesterol Level 206 mg/dL H 150-200 04/25/2018 04/25/2018 10:20am 10:49am Triglycerides 82 mg/dL <150 04/25/2018 04/25/2018 Level 10:20am 10:49am HDL Cholesterol 51 mg/dL L >65 04/25/2018 04/25/2018 HDL EXPECTED VALUES : 10:20am 10:49am FEMALES: >65 mg/dL NO RISK 45-65 mg/dL MODERATE RISK <45 mg/dL HIGH RISK MALES: >55 mg/dL NO RISK 35-55 mg/dL MODERATE RISK <35 mg/dL HIGH RISK LDL Cholesterol 164 mg/dL H <100 04/25/2018 04/25/2018 LDL Expected Values: 10:20am 10:49am Optimal <100 mg/dL Near optimal/above optimal 100-129 mg/dL Borderline high 130-159 mg/dL High 160-189 mg/dL Very high >190 mg/dL Coronary Heart 4.039 04/25/2018 04/25/2018 NATIONAL CHOLESTEROL GUIDELINES Disease Risk Ratio 10:20am 10:49am [facility] [...] 9.6 7.1 3.0 x Average 13.5 11.0 White Blood Count 5.8 K/ul 4.0-11.5 05/10/2018 05/10/2018 3:51pm 4:14pm Red Blood Count 3.80 M/ul 3.80-5.20 05/10/2018 05/10/2018 3:51pm 4:14pm Hemoglobin 9.3 g/dl L 10.5-15.7 05/10/2018 05/10/2018 3:51pm 4:14pm Hematocrit 30.0 % L 34.0-50.0 05/10/2018 05/10/2018 3:51pm 4:14pm Mean Corpuscular 79.0 fl 78-98 05/10/2018 05/10/2018 Volume 3:51pm 4:14pm Mean Corpuscular 24.5 pg L 26.2-33.4 05/10/2018 05/10/2018 Hemoglobin 3:51pm 4:14pm Mean Corpuscular 31.0 g/dl L 31.5-36.2 05/10/2018 05/10/2018 Hemoglobin Concent 3:51pm 4:14pm Red Cell 15.8 % H 11.5-15.5 05/10/2018 05/10/2018 Distribution Width 3:51pm 4:14pm Platelet Count 241 K/ul 137-338 05/10/2018 05/10/2018 3:51pm 4:14pm Mean Platelet 6.9 fl L 8.4-11.8 05/10/2018 05/10/2018 Volume 3:51pm 4:14pm Neutrophils (%) 67.5 % 44.4-80.1 05/10/2018 05/10/2018 (Auto) 3:51pm 4:14pm Lymphocytes (%) 24.1 % 10.0-50.0 05/10/2018 05/10/2018 (Auto) 3:51pm 4:14pm Monocytes (%) 5.2 % 3.6-12.04 05/10/2018 05/10/2018 (Auto) 3:51pm 4:14pm Eosinophils (%) 2.4 % 0.0-5.41 05/10/2018 05/10/2018 (Auto) 3:51pm 4:14pm Basophils (%) 0.9 % H 0.0-0.79 05/10/2018 05/10/2018 (Auto) 3:51pm 4:14pm Procedures Procedure Status Date Provider(s) EMERGENCY DEPT VISIT Completed 03/23/18 X-RAY EXAM L-S SPINE 2/3 VWS Completed 03/23/18 X-RAY EXAM SACRUM TAILBONE Completed 03/23/18 THER/PROPH/DIAG INJ SC/IM Completed 03/23/18 LIPID PANEL Completed 04/25/18 COMPREHEN METABOLIC PANEL Completed 04/25/18 GLYCOSYLATED HEMOGLOBIN TEST Completed 04/25/18 URINE BACTERIA CULTURE Completed 04/25/18 COMPLETE CBC W/AUTO DIFF WBC Completed 04/25/18 ASSAY OF MAGNESIUM Completed 04/25/18 UR ALBUMIN QUANTITATIVE Completed 04/25/18 URINALYSIS AUTO W/SCOPE Completed 04/25/18 ROUTINE VENIPUNCTURE Completed 04/25/18 X-ray of sacrum and coccyx, two or Completed 03/23/18 ALLISON CHAN APRN THRASHER FEEDER-BC more views X-ray of lumbar spine, AP and Completed 03/23/18 ALLISON CHAN APRN THRASHER FEEDER -BC lateral views Encounters Encounter Location Arrival/Admit Date Discharge/Depart Date Attending Provider Departed [place] 05/10/18 3:12pm 05/10/18 4:52pm MAEVE Emergency Room Formerly [facility] JACKSON Farfan MD Medical Ctr Registered [place] 04/25/18 10:09am TIM POTTER [facility] Registered [facility] 04/25/18 8:37TIM [facility] 12[facility] 03/23/18 1:34pm LAYA HAWKINS MD Emergency Room [facility] Recent Diagnosis
--- OUTSIDE RECORDS SUMMARY | 2019-02-11 09:10 | XMS REPORT ---
:1980 Author Organization [facility] Address [address] [place] [address] Care Team Providers Name Role Phone JOELCICI Unavailable Unavailable Payers Payer Name Policy Type Policy Number Effective Date Expiration Date Problems This patient has no known problems. Allergies, Adverse Reactions, Alerts Allergy Allergy Status Severity Reaction(s) Onset Inactive Treating Comments Name Type Date Date Clinician No Known DA Active U 2018-08 Allergies 00:00:0 0 Medications This patient has no known medications. Encounters Start End Encounter Admission Attending Care Care Encounter Date/Time Date/Time Type Type Clinicians Facility Department ID 2018-08-22 2018-08-22 Outpatient E [facility] 7502 22:10:00 22:10:00 2018-08-17 2018-08-17 Emergency E [facility] 7501 22:46:00 22:46:00 2018-08-12 2018-08-12 Emergency E [facility] 7500 00:29:00 00:29:00 2018-07-29 2018-07-29 Outpatient E [facility] 7500 23:06:00 23:06:00 Results Test Description Test Time Test Comments Text Results Atomic Results Result Comments CBC W/AUTO DIFF 2018-10-03 11:13:00 Test Item Value Reference Range Comments WHITE BLOOD CELL (test code=WBC) 4.0 K/MM3 3.8-9.8 RED BLOOD CELL (test code=RBC) 4.15 M/MM3 3.58-4.97 HEMOGLOBIN (test code=HGB) 10.2 G/DL 11.2-14.9 HEMATOCRIT (test code=HCT) 33.1 % 33.2-43.5 MEAN CELL VOLUME (test code=MCV) 80 fL 80.7-99.1 MEAN CELL HGB (test code=MCH) 24.6 pg 27.0-34.1 MEAN CELL HGB CONCETRATION (test code=MCHC) 30.8 % 32.2-35.7 RED CELL DISTRIBUTION WIDTH (test code=RDW) 23.9 % 12.1-15.2 PLATELET COUNT (test code=PLT) 219 K/MM3 129-368 MEAN PLATELET VOLUME (test code=MPV) 10.1 fl 7.4-10.4 NEUTROPHIL % (test code=NT%) 41.1 % 43-75 IMMATURE GRANULOCYTE % (test code=IG%) 0.2 % 0.0-2.0 LYMPHOCYTE % (test code=LY%) 40.8 % 14-44 MONOCYTE % (test code=MO%) 8.2 % 4-13 EOSINOPHIL % (test code=EO%) 9.0 % 0-6 BASOPHIL % (test code=BA%) 0.7 % 0-2 NUCLEATED RBC % (test code=NRBC%) 0.0 % 0-1.0 NEUTROPHIL # (test code=NT#) 1.65 K/mm3 2.0-7.6 IMMATURE GRANULOCYTE # (test code=IG#) 0.01 x10 3/uL 0-0.03 LYMPHOCYTE # (test code=LY#) 1.64 K/mm3 1.0-3.8 MONOCYTE # (test code=MO#) 0.33 K/mm3 0.1-0.8 EOSINOPHIL # (test code=EO#) 0.36 K/mm3 0.0-0.2 BASOPHIL # (test code=BA#) 0.03 K/mm3 0.0-0.2 NUCLEATED RBC # (test code=NRBC#) 0.00 K/mm3 0.0-0.1 DIFFERENTIAL [id number] 11:13:00 Test Item Value Reference Range Comments RBC MORPHOLOGY REQUIRED (test code=RBCM) ABNORMAL ANISOCYTOSIS (test code=ANISO) MODERATE NONE PLATELET ESTIMATE (test code=PLTEST) ADEQUATE ADEQUATE PLATELET MORPHOLOGY (test code=PLTMORPH) NORMAL NORMAL BASIC METABOLIC [id number] 07:25:00 Test Item Value Reference Range Comments SODIUM (test code=NA) 141 MMOL/L 137-145 POTASSIUM (test code=K) 3.9 MMOL/L 3.5-5.1 CHLORIDE (test code=CL) 104 MMOL/L 98-107 CARBON DIOXIDE (test code=CO2) 30 MMOL/L 22-30 ANION GAP (test code=GAP) 11 MMOL/L 14-24 GLUCOSE (test code=GLU) 102 MG/DL 74-106 BLOOD UREA NITROGEN (test 15 MG/DL 7-17 code=BUN) GLOMERULAR FILTRATION RATE > 60 Reporting units: ml/min/1.73 (test code=GFR) m2 (Modified MDRD Formula)Reference Range: > or=60 ml/min/1.73 m2 CREATININE (test code=CREAT) 0.70 MG/DL 0.52-1.04 CALCIUM (test code=CA) 9.2 MG/DL 8.4-10.2 CBC W/AUTO [id number] 06:25:00 Test Item Value Reference Range Comments WHITE BLOOD CELL (test code=WBC) 4.0 K/MM3 3.8-9.8 RED BLOOD CELL (test code=RBC) 4.15 M/MM3 3.58-4.97 HEMOGLOBIN (test code=HGB) 10.2 G/DL 11.2-14.9 HEMATOCRIT (test code=HCT) 33.1 % 33.2-43.5 MEAN CELL VOLUME (test code=MCV) 80 fL 80.7-99.1 MEAN CELL HGB (test code=MCH) 24.6 pg 27.0-34.1 MEAN CELL HGB CONCETRATION (test code=MCHC) 30.8 % 32.2-35.7 RED CELL DISTRIBUTION WIDTH (test code=RDW) 23.9 % 12.1-15.2 PLATELET COUNT (test code=PLT) 219 K/MM3 129-368 MEAN PLATELET VOLUME (test code=MPV) 10.1 fl 7.4-10.4 NEUTROPHIL % (test code=NT%) 41.1 % 43-75 IMMATURE GRANULOCYTE % (test code=IG%) 0.2 % 0.0-2.0 LYMPHOCYTE % (test code=LY%) 40.8 % 14-44 MONOCYTE % (test code=MO%) 8.2 % 4-13 EOSINOPHIL % (test code=EO%) 9.0 % 0-6 BASOPHIL % (test code=BA%) 0.7 % 0-2 NUCLEATED RBC % (test code=NRBC%) 0.0 % 0-1.0 NEUTROPHIL # (test code=NT#) 1.65 K/mm3 2.0-7.6 IMMATURE GRANULOCYTE # (test code=IG#) 0.01 x10 3/uL 0-0.03 LYMPHOCYTE # (test code=LY#) 1.64 K/mm3 1.0-3.8 MONOCYTE # (test code=MO#) 0.33 K/mm3 0.1-0.8 EOSINOPHIL # (test code=EO#) 0.36 K/mm3 0.0-0.2 BASOPHIL # (test code=BA#) 0.03 K/mm3 0.0-0.2 NUCLEATED RBC # (test code=NRBC#) 0.00 K/mm3 0.0-0.1 DIFFERENTIAL [id number] 06:25:00 Test Item Value Reference Range Comments RBC MORPHOLOGY REQUIRED (test code=RBCM) PLATELET ESTIMATE (test code=PLTEST) ADEQUATE PLATELET MORPHOLOGY (test code=PLTMORPH) NORMAL CBC W/AUTO [id number] 06:25:00 Test Item Value Reference Range Comments WHITE BLOOD CELL (test code=WBC) 4.0 K/MM3 3.8-9.8 RED BLOOD CELL (test code=RBC) 4.15 M/MM3 3.58-4.97 HEMOGLOBIN (test code=HGB) 10.2 G/DL 11.2-14.9 HEMATOCRIT (test code=HCT) 33.1 % 33.2-43.5 MEAN CELL VOLUME (test code=MCV) 80 fL 80.7-99.1 MEAN CELL HGB (test code=MCH) 24.6 pg 27.0-34.1 MEAN CELL HGB CONCETRATION (test code=MCHC) 30.8 % 32.2-35.7 RED CELL DISTRIBUTION WIDTH (test code=RDW) 23.9 % 12.1-15.2 PLATELET COUNT (test code=PLT) 219 K/MM3 129-368 MEAN PLATELET VOLUME (test code=MPV) 10.1 fl 7.4-10.4 NEUTROPHIL % (test code=NT%) 41.1 % 43-75 IMMATURE GRANULOCYTE % (test code=IG%) 0.2 % 0.0-2.0 LYMPHOCYTE % (test code=LY%) 40.8 % 14-44 MONOCYTE % (test code=MO%) 8.2 % 4-13 EOSINOPHIL % (test code=EO%) 9.0 % 0-6 BASOPHIL % (test code=BA%) 0.7 % 0-2 NUCLEATED RBC % (test code=NRBC%) 0.0 % 0-1.0 NEUTROPHIL # (test code=NT#) 1.65 K/mm3 2.0-7.6 IMMATURE GRANULOCYTE # (test code=IG#) 0.01 x10 3/uL 0-0.03 LYMPHOCYTE # (test code=LY#) 1.64 K/mm3 1.0-3.8 MONOCYTE # (test code=MO#) 0.33 K/mm3 0.1-0.8 EOSINOPHIL # (test code=EO#) 0.36 K/mm3 0.0-0.2 BASOPHIL # (test code=BA#) 0.03 K/mm3 0.0-0.2 NUCLEATED RBC # (test code=NRBC#) 0.00 K/mm3 0.0-0.1 DIFFERENTIAL [id number] 06:25:00 Test Item Value Reference Range Comments RBC MORPHOLOGY REQUIRED (test code=RBCM) PLATELET ESTIMATE (test code=PLTEST) ADEQUATE PLATELET MORPHOLOGY (test code=PLTMORPH) NORMAL CBC W/O [id number] 11:11:00 Test Item Value Reference Range Comments WHITE BLOOD CELL (test code=WBC) 4.0 K/MM3 3.8-9.8 RED BLOOD CELL (test code=RBC) 4.09 M/MM3 3.58-4.97 HEMOGLOBIN (test code=HGB) 9.9 G/DL 11.2-14.9 HEMATOCRIT (test code=HCT) 33.8 % 33.2-43.5 MEAN CELL VOLUME (test code=MCV) 83 fL 80.7-99.1 MEAN CELL HGB (test code=MCH) 24.2 pg 27.0-34.1 MEAN CELL HGB CONCETRATION (test code=MCHC) 29.3 % 32.2-35.7 RED CELL DISTRIBUTION WIDTH (test code=RDW) 23.9 % 12.1-15.2 PLATELET COUNT (test code=PLT) 192 K/MM3 129-368 NEUTROPHIL # (test code=NT#) 1.92 K/mm3 2.0-7.6 IMMATURE GRANULOCYTE # (test code=IG#) 0.01 x10 3/uL 0-0.03 LYMPHOCYTE # (test code=LY#) 1.31 K/mm3 1.0-3.8 MONOCYTE # (test code=MO#) 0.34 K/mm3 0.1-0.8 EOSINOPHIL # (test code=EO#) 0.40 K/mm3 0.0-0.2 BASOPHIL # (test code=BA#) 0.02 K/mm3 0.0-0.2 NUCLEATED RBC # (test code=NRBC#) 0.00 K/mm3 0.0-0.1 DIFFERENTIAL [id number] 11:11:00 Test Item Value Reference Range Comments RBC MORPHOLOGY REQUIRED (test code=RBCM) ABNORMAL ANISOCYTOSIS (test code=ANISO) SLIGHT NONE MICROCYTOSIS (test code=MICR) FEW NONE ELLIPTOCYTES (test code=ELL) FEW NONE OVALOCYTES (test code=OVAL) FEW NONE PLATELET ESTIMATE (test code=PLTEST) ADEQUATE ADEQUATE PLATELET MORPHOLOGY (test code=PLTMORPH) NORMAL NORMAL WBC [id number] 11:11:00 Test Item Value Reference Range Comments TOTAL CELLS COUNTED (test code=TCC) 130 #CELLS SEGMENTED NEUTROPHILS (test code=SEG) 56.6 % 36.2-73.8 BAND NEUTROPHIL (test code=BAND) 0.8 % 0-10 LYMPHOCYTE (test code=LYMPH) 24.6 % 12.9-45.1 ATYPICAL LYMPH (test code=ALYMPH) 1.6 % 0-0 MONOCYTE (test code=MON) 8.2 % 0-11 EOSINOPHIL (test code=EOS) 8.2 % 1-7 BASIC METABOLIC [id number] 10:21:00 Test Item Value Reference Range Comments SODIUM (test code=NA) 138 MMOL/L 137-145 POTASSIUM (test code=K) 4.1 MMOL/L 3.5-5.1 CHLORIDE (test code=CL) 104 MMOL/L 98-107 CARBON DIOXIDE (test code=CO2) 26 MMOL/L 22-30 ANION GAP (test code=GAP) 12 MMOL/L 14-24 GLUCOSE (test code=GLU) 188 MG/DL 74-106 BLOOD UREA NITROGEN (test 19 MG/DL 7-17 code=BUN) GLOMERULAR FILTRATION RATE > 60 Reporting units: ml/min/1.73 (test code=GFR) m2 (Modified MDRD Formula)Reference Range: > or=60 ml/min/1.73 m2 CREATININE (test code=CREAT) 0.70 MG/DL 0.52-1.04 CALCIUM (test code=CA) 9.2 MG/DL 8.4-10.2 CBC W/O [id number] 10:03:00 Test Item Value Reference Range Comments WHITE BLOOD CELL (test code=WBC) 4.0 K/MM3 3.8-9.8 RED BLOOD CELL (test code=RBC) 4.09 M/MM3 3.58-4.97 HEMOGLOBIN (test code=HGB) 9.9 G/DL 11.2-14.9 HEMATOCRIT (test code=HCT) 33.8 % 33.2-43.5 MEAN CELL VOLUME (test code=MCV) 83 fL 80.7-99.1 MEAN CELL HGB (test code=MCH) 24.2 pg 27.0-34.1 MEAN CELL HGB CONCETRATION (test code=MCHC) 29.3 % 32.2-35.7 RED CELL DISTRIBUTION WIDTH (test code=RDW) 23.9 % 12.1-15.2 PLATELET COUNT (test code=PLT) 192 K/MM3 129-368 NEUTROPHIL # (test code=NT#) 1.92 K/mm3 2.0-7.6 IMMATURE GRANULOCYTE # (test code=IG#) 0.01 x10 3/uL 0-0.03 LYMPHOCYTE # (test code=LY#) 1.31 K/mm3 1.0-3.8 MONOCYTE # (test code=MO#) 0.34 K/mm3 0.1-0.8 EOSINOPHIL # (test code=EO#) 0.40 K/mm3 0.0-0.2 BASOPHIL # (test code=BA#) 0.02 K/mm3 0.0-0.2 NUCLEATED RBC # (test code=NRBC#) 0.00 K/mm3 0.0-0.1 DIFFERENTIAL [id number] 10:03:00 Test Item Value Reference Range Comments RBC MORPHOLOGY REQUIRED (test code=RBCM) PLATELET ESTIMATE (test code=PLTEST) ADEQUATE PLATELET MORPHOLOGY (test code=PLTMORPH) NORMAL WBC [id number] 10:03:00 Test Item Value Reference Range Comments TOTAL CELLS COUNTED (test code=TCC) #CELLS SEGMENTED NEUTROPHILS (test code=SEG) % 36.2-73.8 LYMPHOCYTE (test code=LYMPH) % 12.9-45.1 MONOCYTE (test code=MON) % 0-11 CBC W/AUTO [id number] 10:03:00 Test Item Value Reference Range Comments WHITE BLOOD CELL (test code=WBC) 4.0 K/MM3 3.8-9.8 RED BLOOD CELL (test code=RBC) 4.09 M/MM3 3.58-4.97 HEMOGLOBIN (test code=HGB) 9.9 G/DL 11.2-14.9 HEMATOCRIT (test code=HCT) 33.8 % 33.2-43.5 MEAN CELL VOLUME (test code=MCV) 83 fL 80.7-99.1 MEAN CELL HGB (test code=MCH) 24.2 pg 27.0-34.1 MEAN CELL HGB CONCETRATION (test code=MCHC) 29.3 % 32.2-35.7 RED CELL DISTRIBUTION WIDTH (test code=RDW) 23.9 % 12.1-15.2 PLATELET COUNT (test code=PLT) 192 K/MM3 129-368 MEAN PLATELET VOLUME (test code=MPV) 9.8 fl 7.4-10.4 NEUTROPHIL % (test code=NT%) 47.9 % 43-75 IMMATURE GRANULOCYTE % (test code=IG%) 0.3 % 0.0-2.0 LYMPHOCYTE % (test code=LY%) 32.8 % 14-44 MONOCYTE % (test code=MO%) 8.5 % 4-13 EOSINOPHIL % (test code=EO%) 10.0 % 0-6 BASOPHIL % (test code=BA%) 0.5 % 0-2 NUCLEATED RBC % (test code=NRBC%) 0.0 % 0-1.0 NEUTROPHIL # (test code=NT#) 1.92 K/mm3 2.0-7.6 IMMATURE GRANULOCYTE # (test code=IG#) 0.01 x10 3/uL 0-0.03 LYMPHOCYTE # (test code=LY#) 1.31 K/mm3 1.0-3.8 MONOCYTE # (test code=MO#) 0.34 K/mm3 0.1-0.8 EOSINOPHIL # (test code=EO#) 0.40 K/mm3 0.0-0.2 BASOPHIL # (test code=BA#) 0.02 K/mm3 0.0-0.2 NUCLEATED RBC # (test code=NRBC#) 0.00 K/mm3 0.0-0.1 WBC [id number] 10:03:00 Test Item Value Reference Range Comments RBC MORPHOLOGY REQUIRED (test code=RBCM) TOTAL CELLS COUNTED (test code=TCC) #CELLS SEGMENTED NEUTROPHILS (test code=SEG) % 36.2-73.8 LYMPHOCYTE (test code=LYMPH) % 12.9-45.1 MONOCYTE (test code=MON) % 0-11 PLATELET ESTIMATE (test code=PLTEST) ADEQUATE PLATELET MORPHOLOGY (test code=PLTMORPH) NORMAL VANCOMYCIN [id number] 23:47:00 Test Item Value Reference Range Comments VANCOMYCIN TROUGH (test code=VANCT) 14.1 UG/ML 10.0-20.0 CBC W/AUTO [id number] 15:26:00 Test Item Value Reference Range Comments WHITE BLOOD CELL (test code=WBC) 4.6 K/MM3 3.8-9.8 RED BLOOD CELL (test code=RBC) 4.30 M/MM3 3.58-4.97 HEMOGLOBIN (test code=HGB) 10.6 G/DL 11.2-14.9 HEMATOCRIT (test code=HCT) 34.2 % 33.2-43.5 MEAN CELL VOLUME (test code=MCV) 80 fL 80.7-99.1 MEAN CELL HGB (test code=MCH) 24.7 pg 27.0-34.1 MEAN CELL HGB CONCETRATION (test code=MCHC) 31.0 % 32.2-35.7 RED CELL DISTRIBUTION WIDTH (test code=RDW) 23.9 % 12.1-15.2 PLATELET COUNT (test code=PLT) 219 K/MM3 129-368 MEAN PLATELET VOLUME (test code=MPV) 9.7 fl 7.4-10.4 NEUTROPHIL % (test code=NT%) 62.1 % 43-75 IMMATURE GRANULOCYTE % (test code=IG%) 0.4 % 0.0-2.0 LYMPHOCYTE % (test code=LY%) 20.9 % 14-44 MONOCYTE % (test code=MO%) 10.5 % 4-13 EOSINOPHIL % (test code=EO%) 5.7 % 0-6 BASOPHIL % (test code=BA%) 0.4 % 0-2 NUCLEATED RBC % (test code=NRBC%) 0.0 % 0-1.0 NEUTROPHIL # (test code=NT#) 2.85 K/mm3 2.0-7.6 IMMATURE GRANULOCYTE # (test code=IG#) 0.02 x10 3/uL 0-0.03 LYMPHOCYTE # (test code=LY#) 0.96 K/mm3 1.0-3.8 MONOCYTE # (test code=MO#) 0.48 K/mm3 0.1-0.8 EOSINOPHIL # (test code=EO#) 0.26 K/mm3 0.0-0.2 BASOPHIL # (test code=BA#) 0.02 K/mm3 0.0-0.2 NUCLEATED RBC # (test code=NRBC#) 0.00 K/mm3 0.0-0.1 DIFFERENTIAL [id number] 15:26:00 Test Item Value Reference Range Comments RBC MORPHOLOGY REQUIRED (test code=RBCM) NORMAL POIKILOCYTOSIS (test code=POIK) FEW NONE ANISOCYTOSIS (test code=ANISO) SLIGHT NONE MICROCYTOSIS (test code=MICR) FEW NONE PLATELET ESTIMATE (test code=PLTEST) ADEQUATE ADEQUATE PLATELET MORPHOLOGY (test code=PLTMORPH) NORMAL NORMAL BASIC METABOLIC [id number] 11:48:00 Test Item Value Reference Range Comments SODIUM (test code=NA) 138 MMOL/L 137-145 POTASSIUM (test code=K) 4.5 MMOL/L 3.5-5.1 CHLORIDE (test code=CL) 105 MMOL/L 98-107 CARBON DIOXIDE (test code=CO2) 29 MMOL/L 22-30 GLUCOSE (test code=GLU) 85 MG/DL 74-106 BLOOD UREA NITROGEN (test 12 MG/DL 7-17 code=BUN) GLOMERULAR FILTRATION RATE > 60 Reporting units: ml/min/1.73 (test code=GFR) m2 (Modified MDRD Formula)Reference Range: > or=60 ml/min/1.73 m2 CREATININE (test code=CREAT) 0.70 MG/DL 0.52-1.04 CALCIUM (test code=CA) 9.5 MG/DL 8.4-10.2 - CT HD/BR W W/O [id number] 11:45:00 Patient Name: LEIGH FRYE Unit No: [id number] EXAMS: CPT CODE: [id number] CT HD/BR W W/O CONT [address] HEAD WITHOUT CONTRAST HISTORY: 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 Coronal and sagittal reformatted images were created from the data set. One or more of the following dose reduction techniques were used: Automated exposure control, adjustment of the mA and/or kV according to patient size, and/or iterative reconstruction. COMPARISON: 2018 FINDINGS: Postsurgical changes again noted in the sella and left sphenoid sinus with packing material filling the left sphenoid sinus and floor of the sella. No residual enhancement in the sella. Otherwise, no abnormal brain parenchymal density. No evidence of acute infarction, intracranial hemorrhage, mass or mass effect , or abnormal extra-axial fluid collection. The ventricles are normal in size, shape and position. The density in the larger dural sinuses isgrossly normal. The osseous structures and orbits have no significant abnormalities. The visualized paranasal sinuses and mastoid air cells are predominantly clear. No abnormal parenchymal or leptomeningeal enhancement. 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 Packing material is noted in the left sphenoid sinus. No acute intracranial abnormality. at 1145 Reported and signed by: Deshawn Lorenzo MD CC: Technologist: URIEL BARTON RT(R)(CT)(MR); CTDI: DLP : Trnscrpt: 10/01/2018 (1145) [id number] NAME: LEIGH FRYE [address] PHYS: AJU - [place] [address] : 1980 AGE: 38 SEX: F LOC: Z.530 A PHONE #: [phone] EXAM DATE: 2018 STATUS: ADM IN FAX #: [phone] RAD #: D/C DT PAGE 1 Signed Report Patient Name: LEIGH FRYE Unit No: [id number] : CPT CODE: [id number] CT HD/ BR W W/O CONT 88089 <Continued> Orig Print D/T: S: 10/01/2018 (1149) [facility] NAME: LEIGH FRYE [id number] PHYS: [place] [address] : 1980 AGE: 38 SEX: F LOC: Z.530 A PHONE #: [phone] DATE: STATUS: ADM IN FAX #: [phone] RAD #: D/C DT PAGE 2 Signed ReportPROTHROMBIN [id number] 11:40:00 Test Item Value Reference Range Comments PROTHROMBIN TIME PATIENT (test 10.3 SECONDS 9.6-11.6 code=PTP) INTERNATIONAL NORMAL RATIO 1.0 0.8-1.1 The INR is to be used only (test code=INR) for monitoring oral anticoagulanttherapy. INDICATION INR VALUE 1. Prophylaxis, deep venous thrombosis, including high risk surgery. 2.0 - 3.0 2. Prophylaxis, deep venous thrombosis, hip surgery, treatment for deep venous thrombosis or pulmonary prevention of systemic embolism in patients with valvular heart disease, atrial fibrillation, tissue heart valve, or acute myocardial infarction. 2.0 - 3.0 3. Mechanical prosthesis heart valves, recurrent systemic embolism. 3.0 - 4.5 PTT [id number] 11:40:00 Test Item Value Reference Range Comments PTT ACTIVATED (test code=APTT) 25.7 SECONDS 22.0-33.0 [id number] 11:40:00 Test Item Value Reference Range Comments FIBRINOGEN (test code=FIB) 430 MG/DL 185-512 [id number] 11:40:00 Test Item Value Reference Range Comments D-DIMER (test 1.21 MG/L FEU 0-0.49 Negative Predictive Value cutoff code=DDIMER) for DVT & PE: <0.50 mg/L FEUInterpretation: A value of <0.50 mg/L FEU has a NegativePredictive Value in ruling out a DVT or PE diagnosis.A value of 0.50 mg/L or greater is considered Positive.Positive result cannot be used for the diagnosis of DVT andPE without using of standard radiological procedures. CBC W/AUTO [id number] 11:24:00 Test Item Value Reference Range Comments WHITE BLOOD CELL (test code=WBC) 4.6 K/MM3 3.8-9.8 RED BLOOD CELL (test code=RBC) 4.30 M/MM3 3.58-4.97 HEMOGLOBIN (test code=HGB) 10.6 G/DL 11.2-14.9 HEMATOCRIT (test code=HCT) 34.2 % 33.2-43.5 MEAN CELL VOLUME (test code=MCV) 80 fL 80.7-99.1 MEAN CELL HGB (test code=MCH) 24.7 pg 27.0-34.1 MEAN CELL HGB CONCETRATION (test code=MCHC) 31.0 % 32.2-35.7 RED CELL DISTRIBUTION WIDTH (test code=RDW) 23.9 % 12.1-15.2 PLATELET COUNT (test code=PLT) 219 K/MM3 129-368 MEAN PLATELET VOLUME (test code=MPV) 9.7 fl 7.4-10.4 NEUTROPHIL % (test code=NT%) 62.1 % 43-75 IMMATURE GRANULOCYTE % (test code=IG%) 0.4 % 0.0-2.0 LYMPHOCYTE % (test code=LY%) 20.9 % 14-44 MONOCYTE % (test code=MO%) 10.5 % 4-13 EOSINOPHIL % (test code=EO%) 5.7 % 0-6 BASOPHIL % (test code=BA%) 0.4 % 0-2 NUCLEATED RBC % (test code=NRBC%) 0.0 % 0-1.0 NEUTROPHIL # (test code=NT#) 2.85 K/mm3 2.0-7.6 IMMATURE GRANULOCYTE # (test code=IG#) 0.02 x10 3/uL 0-0.03 LYMPHOCYTE # (test code=LY#) 0.96 K/mm3 1.0-3.8 MONOCYTE # (test code=MO#) 0.48 K/mm3 0.1-0.8 EOSINOPHIL # (test code=EO#) 0.26 K/mm3 0.0-0.2 BASOPHIL # (test code=BA#) 0.02 K/mm3 0.0-0.2 NUCLEATED RBC # (test code=NRBC#) 0.00 K/mm3 0.0-0.1 DIFFERENTIAL [id number] 11:24:00 Test Item Value Reference Range Comments RBC MORPHOLOGY REQUIRED (test code=RBCM) PLATELET ESTIMATE (test code=PLTEST) ADEQUATE PLATELET MORPHOLOGY (test code=PLTMORPH) NORMAL PLATELET [id number] 11:24:00 Test Item Value Reference Range Comments PLATELET COUNT (test code=PLT) 211 K/MM3 129-368 CBC W/AUTO [id number] 11:24:00 Test Item Value Reference Range Comments WHITE BLOOD CELL (test code=WBC) 4.6 K/MM3 3.8-9.8 RED BLOOD CELL (test code=RBC) 4.30 M/MM3 3.58-4.97 HEMOGLOBIN (test code=HGB) 10.6 G/DL 11.2-14.9 HEMATOCRIT (test code=HCT) 34.2 % 33.2-43.5 MEAN CELL VOLUME (test code=MCV) 80 fL 80.7-99.1 MEAN CELL HGB (test code=MCH) 24.7 pg 27.0-34.1 MEAN CELL HGB CONCETRATION (test code=MCHC) 31.0 % 32.2-35.7 RED CELL DISTRIBUTION WIDTH (test code=RDW) 23.9 % 12.1-15.2 PLATELET COUNT (test code=PLT) 219 K/MM3 129-368 MEAN PLATELET VOLUME (test code=MPV) 9.7 fl 7.4-10.4 NEUTROPHIL % (test code=NT%) 62.1 % 43-75 IMMATURE GRANULOCYTE % (test code=IG%) 0.4 % 0.0-2.0 LYMPHOCYTE % (test code=LY%) 20.9 % 14-44 MONOCYTE % (test code=MO%) 10.5 % 4-13 EOSINOPHIL % (test code=EO%) 5.7 % 0-6 BASOPHIL % (test code=BA%) 0.4 % 0-2 NUCLEATED RBC % (test code=NRBC%) 0.0 % 0-1.0 NEUTROPHIL # (test code=NT#) 2.85 K/mm3 2.0-7.6 IMMATURE GRANULOCYTE # (test code=IG#) 0.02 x10 3/uL 0-0.03 LYMPHOCYTE # (test code=LY#) 0.96 K/mm3 1.0-3.8 MONOCYTE # (test code=MO#) 0.48 K/mm3 0.1-0.8 EOSINOPHIL # (test code=EO#) 0.26 K/mm3 0.0-0.2 BASOPHIL # (test code=BA#) 0.02 K/mm3 0.0-0.2 NUCLEATED RBC # (test code=NRBC#) 0.00 K/mm3 0.0-0.1 DIFFERENTIAL [id number] 11:24:00 Test Item Value Reference Range Comments RBC MORPHOLOGY REQUIRED (test code=RBCM) PLATELET ESTIMATE (test code=PLTEST) ADEQUATE PLATELET MORPHOLOGY (test code=PLTMORPH) NORMAL CBC W/O [id number] 00:37:00 Test Item Value Reference Range Comments WHITE BLOOD CELL (test code=WBC) 6.4 K/MM3 3.8-9.8 RED BLOOD CELL (test code=RBC) 4.58 M/MM3 3.58-4.97 HEMOGLOBIN (test code=HGB) 11.3 G/DL 11.2-14.9 HEMATOCRIT (test code=HCT) 37.2 % 33.2-43.5 MEAN CELL VOLUME (test code=MCV) 81 fL 80.7-99.1 MEAN CELL HGB (test code=MCH) 24.7 pg 27.0-34.1 MEAN CELL HGB CONCETRATION (test code=MCHC) 30.4 % 32.2-35.7 RED CELL DISTRIBUTION WIDTH (test code=RDW) 24.4 % 12.1-15.2 PLATELET COUNT (test code=PLT) 252 K/MM3 129-368 NEUTROPHIL # (test code=NT#) 2.87 K/mm3 2.0-7.6 IMMATURE GRANULOCYTE # (test code=IG#) 0.01 x10 3/uL 0-0.03 LYMPHOCYTE # (test code=LY#) 2.82 K/mm3 1.0-3.8 MONOCYTE # (test code=MO#) 0.43 K/mm3 0.1-0.8 EOSINOPHIL # (test code=EO#) 0.28 K/mm3 0.0-0.2 BASOPHIL # (test code=BA#) 0.03 K/mm3 0.0-0.2 NUCLEATED RBC # (test code=NRBC#) 0.00 K/mm3 0.0-0.1 DIFFERENTIAL [id number] 00:37:00 Test Item Value Reference Range Comments RBC MORPHOLOGY REQUIRED (test code=RBCM) ABNORMAL ANISOCYTOSIS (test code=ANISO) MODERATE NONE MICROCYTOSIS (test code=MICR) FEW NONE PLATELET ESTIMATE (test code=PLTEST) ADEQUATE ADEQUATE PLATELET MORPHOLOGY (test code=PLTMORPH) NORMAL NORMAL - CT HD/BR W W/O [id number] 00:36:00 Patient Name: LEIGH FRYE Unit No: [id number] EXAMS: CPT CODE: [id number] CT HD/BR W W/O CONT [id number] Exam: CT of the brain and maxillofacial bones with intravenous contrast. History: Headache, fever, pituitary surgery. Technique: Contiguous axial CT images were obtained from the skull base through the vertex after intravenous contrast. Contiguous axial CT images of the maxillofacial bones was obtained with intravenous contrast. One or more of the following dose reduction techniques were used: Automated exposure control, adjustment of the mA and/or kV according to patient size, and/or utilization of iterative reconstruction technique. Total DLP: 2300.6 mGy-cm. Comparison: 2018 CT head Location: R16 Findings: The ventricles and sulci are normal in size and symmetric. The basal cisterns are patent. There is no mass effect or midline shift. There is no evidence for acute territorial infarction. There is no acute intracranial hemorrhage. There are no extra-axial fluid collections. 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 There is moderate, persistent mucosal thickening of the bilateral sphenoid, and to a lesser degree, the ethmoid sinuses. There is a chronic rightinferior orbital floor depression deformity containing fat and protrusion of the inferior right rectus muscle, this was seen previously without interval change. The mastoid air cellsare well aerated. The ocular globes are symmetric. There is no lens dislocation. The retrobulbar fat is preserved, bilaterally. Impression: No evidence of an acute intracranial abnormality. 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 Persistent paranasal sinusitis, moderate at the sphenoid sinuses. 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 [facility] [place] NAME: LEIGH FRYE [id number] [address] PHYS: Lazarus Mustafa MD [place] [id number] : 1980 AGE: 38 SEX: F LOC: [facility] PHONE #: [phone] EXAM DATE: 09/27/2018 STATUS: REG ER FAX #: [phone] RAD #: D/C DT PAGE 1 Signed Report (CONTINUED) Patient Name : LEIGH FRYE Unit No: [id number] EXAMS: CPT CODE: [id number] CT HD/BR W W/O CONT [id number] <Continued> at 0036 Reported and signed by: Ko Luo MD CC: Lazarus Brink MD Technologist: TAVON RT(R)(CT)(MR) CTDI: DLP : Trnscrpt: 09/28/2018 (0036) t.SDR.RH16 [facility] NAME: LEIGH FRYE [id number] PHYS: [place] [address] : 1980 AGE: 38 SEX: F LOC: AlminderERS PHONE #: [phone] EXAM DATE: 09/27/2018 STATUS: REG ER FAX #: [phone] RAD #: D/C DT PAGE 2 Signed Report Patient Name: LEIGH FRYE Unit No: [id number] EXAMS: CPT CODE: [id number] CT HD/BR W W/O CONT 30415 <Continued> Orig Print D/T: S: 09/28/2018 (0040) [facility] NAME: LEIGH FRYE [id number] PHYS: [place] [address] : 1980 AGE: 38 SEX: F LOC: ZYOVANY PHONE #: [phone] EXAM DATE: 2018 STATUS: REG ER FAX #: [phone] RAD #: D/C DT PAGE 3 Signed Report- CT MAXIFAC W/[id number]- 07-10 00:36:00 Patient Name: LEIGH FRYE Unit No: [id number] EXAMS: CPT CODE: [id number] CT MAXIFAC W/ CONTRAST 02849 Exam: CT of the brain and maxillofacial bones with intravenous contrast. History: Headache, fever, pituitary surgery. Technique: Contiguous axial CT images were obtained from the skull base through the vertex after intravenous contrast. Contiguous axial CT images of the maxillofacial bones was obtained with intravenous contrast. One or more of the following dose reduction techniques were used: Automated exposure control, adjustment of the mA and/or kV according to patient size, and/or utilization of iterative reconstruction technique. Total DLP: 2300.6 mGy- cm. Comparison: 08/31/2018 CT head Location: R16 Findings: The ventricles and sulci are normal in size and symmetric. The basal cisterns are patent. There is no mass effect or midline shift. There is no evidence for acute territorial infarction. There is no acute intracranial hemorrhage. There are no extra- axial fluid collections. 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 There is moderate, persistent mucosal thickening of the bilateral sphenoid, and to a lesser degree, the ethmoid sinuses. There is a chronic rightinferior orbital floor depression deformity containing fat and protrusion of the inferior right rectus muscle, this was seen previously without interval change. The mastoid air cellsare well aerated. The ocular globes are symmetric. There is no lens dislocation. The retrobulbar fat is preserved , bilaterally. Impression: No evidence of an acute intracranial abnormality. 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 Persistent paranasal sinusitis, moderate at the sphenoid sinuses. 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 [facility] NAME: LEIGH FRYE [address] PHYS: Lazarus Mustafa MD [place] [id number] : 1980 AGE: 38 SEX: F LOC: Z.ERS PHONE #: [phone] EXAM DATE: 09/27/2018 STATUS: REG ER FAX #: [phone] RAD #: D/C DT PAGE 1 Signed Report (CONTINUED) Patient Name: LEIGH FRYE Unit No: [id number] EXAMS: CPT CODE: [id number] CT MAXIFAC W/CONTRAST 43822 <Continued> at 0036 Reported and signed by: Ko Luo MD CC: Lazarus Brink MD Technologist: TAVON RT(R)(CT)(MR) CTDI: DLP: Trnscrpt: 09/28/2018 (0036) t.SDR.RH16 [facility] NAME: LEIGH FRYEINE Ramon Js PHYS : Lazarus Mustafa MD [place] [id number] : 07/1979 AGE: 38 SEX: F LOC: Cinario PHONE #: [phone] EXAM DATE: STATUS: REG ER FAX #: [phone] RAD #: D/C DT PAGE 2 Signed Report Patient Name: LEIGH FRYE Unit No: [id number] EXAMS: CPT CODE : [id number] CT MAXIFAC W/CONTRAST 77926 <Continued> Orig Print D/T: S: 09/28/2018 (0040) [facility] NAME: LEIGH FRYE [id number] [address] PHYS: Lazarus Mustafa MD [place] [id number] : 1979 AGE: 38 SEX: F LOC: AlminderERS PHONE #: [phone] EXAM DATE: 09/27/2018 STATUS: REG ER FAX #: [phone] RAD #: D/C DT PAGE 3 Signed Report- CT ABD PELVIS W/O [id number] 00:22: 00 Patient Name: LEIGH FRYE Unit No: [id number] EXAMS: CPT CODE: [id number] CT ABD PELVIS W/O CONT 88891 CLINICAL HISTORY: Flank pain. LOCATION: E5 FINDINGS: Multislice axial images are obtained through the abdomen and pelvis without oral or intravenous contrast. Coronal and sagittal reconstructed images are obtained and are used in interpretation. No comparison studies. The liver is above normal size limits measuring 18.1 cm craniocaudal at the midclavicular line. No abnormalities are noted of the gallbladder, pancreas, or spleen. There is a laparoscopic gastric band in place. No abnormalities are noted of the adrenal glands or kidneys. No urinary calculi or hydronephrosis. The intrapelvic viscera are within normal limits. There is no significant adenopathy. No free fluid orfluid collections are evident. No signs of inflammation are noted. The appendix appears to have been surgically removed. No acute skeletal or soft tissue abnormalities are identified. IMPRESSION: 1. No acute abnormalities. This exam was performed according to our departmental dose-optimization program, which includes automated exposure control, adjustment of the mA and/or kV according to patient size and/or use of iterative reconstruction technique * * at 0022 Reported and signed by: Luis M Gee MD CC: aLzarus Brink MD Technologist: URIEL BARTON RT(R )(CT)(MR) CTDI: DLP: Trnscrpt: 09/28/2018 (0022) t.SDR.RC7 [facility] NAME: LEIGH FRYE [address] PHYS:EDILBERTO - [place] [address] : 1980 AGE: 38 SEX: F LOC: ZYOVANY PHONE #: [phone] EXAM DATE: 09/27/2018 STATUS: REG ER FAX #: [phone] RAD #: D/C DT PAGE 1 Signed Report Patient Name: LEIGH FRYE Unit No: [id number] EXAMS: CPT CODE: [id number] CT ABD PELVIS W/O [id number] < Continued> Orig Print D/T: S: 09/28/2018 (0025) [facility] NAME: LEIGH FRYE [id number] PHYS: [place] [address] : 1980 AGE: 38 SEX: F LOC: DelroyERS PHONE #: [phone] EXAM DATE: 09/27/2018 STATUS: REG ER FAX #: [phone] RAD #: D/C DT PAGE2 Signed ReportBASIC METABOLIC [id number] 23:35:00 Test Item Value Reference Range Comments SODIUM (test code=NA) 140 MMOL/L 137-145 POTASSIUM (test code=K) 4.2 MMOL/L 3.5-5.1 CHLORIDE (test code=CL) 105 MMOL/L 98-107 CARBON DIOXIDE (test code=CO2) 27 MMOL/L 22-30 ANION GAP (test code=GAP) 12 MMOL/L 14-24 GLUCOSE (test code=GLU) 91 MG/DL 74-106 BLOOD UREA NITROGEN (test 12 MG/DL 7-17 code=BUN) GLOMERULAR FILTRATION RATE > 60 Reporting units: ml/min/1.73 (test code=GFR) m2 (Modified MDRD Formula)Reference Range: > or=60 ml/min/1.73 m2 CREATININE (test code=CREAT) 0.80 MG/DL 0.52-1.04 CALCIUM (test code=CA) 9.7 MG/DL 8.4-10.2 HEPATIC FUNCTION [id number] 23:35:00 Test Item Value Reference Range Comments TOTAL PROTEIN (test code=PROT) 8.6 G/DL 6.3-8.2 ALBUMIN (test code=ALB) 4.4 G/DL 3.5-5.0 BILIRUBIN TOTAL (test code=BILT) 0.4 MG/DL 0.2-1.3 BILIRUBIN DIRECT (test code=BILD) 0.0 MG/DL 0.0-0.3 SGOT/AST (test code=AST) 25 UNITS/L 14-36 SGPT/ALT (test code=ALT) 29 UNITS/L 9-52 ALKALINE PHOSPHATASE (test code=ALKP) 139 UNITS/L 38-126 [id number] 23:35:00 Test Item Value Reference Range Comments LIPASE (test code=LIP) 134 UNITS/L 23-300 HCG SERUM [id number] 23:35:00 Test Item Value Reference Range Comments HCG SERUM QUAL (test code=HCGQL) NEGATIVE NEGATIVE BASIC METABOLIC [id number] 23:31:00 Test Item Value Reference Range Comments SODIUM (test code=NA) MMOL/L 137-145 POTASSIUM (test code=K) MMOL/L 3.5-5.1 CHLORIDE (test code=CL) MMOL/L 98-107 CARBON DIOXIDE (test code=CO2) MMOL/L 22-30 GLUCOSE (test code=GLU) MG/DL 74-106 BLOOD UREA NITROGEN (test code=BUN) MG/DL 7-17 GLOMERULAR FILTRATION RATE (test code=GFR) CREATININE (test code=CREAT) MG/DL 0.52-1.04 CALCIUM (test code=CA) MG/DL 8.7-9.7 HEPATIC FUNCTION [id number] 23:31:00 Test Item Value Reference Range Comments TOTAL PROTEIN (test code=PROT) G/DL 6.3-8.2 ALBUMIN (test code=ALB) G/DL 3.5-5.0 BILIRUBIN TOTAL (test code=BILT) MG/DL 0.2-1.3 BILIRUBIN DIRECT (test code=BILD) MG/DL 0.0-0.3 SGOT/AST (test code=AST) UNITS/L 15-37 SGPT/ALT (test code=ALT) UNITS/L 9-52 ALKALINE PHOSPHATASE (test code=ALKP) UNITS/L 38-126 [id number] 23:31:00 Test Item Value Reference Range Comments LIPASE (test code=LIP) UNITS/L 23-300 HCG SERUM [id number] 23:31:00 Test Item Value Reference Range Comments HCG SERUM QUAL (test code=HCGQL) NEGATIVE NEGATIVE URINALYSIS [id number] 23:24:00 Test Item Value Reference Range Comments UA COLOR (test code=COLU) YELLOW YELLOW UA APPEARANCE (test code=APPU) SLIGHT CLOUDY CLEAR UA GLUCOSE DIPSTICK (test NORMAL MG/DL NORMAL code=DGLUU) UA BILIRUBIN DIPSTICK (test NEGATIVE MG/DL NEGATIVE code=BILU) UA KETONE DIPSTICK (test NEGATIVE MG/DL NEGATIVE code=KETU) UA SPECIFIC GRAVITY (test 1.015 1.003-1.030 code=SGU) UA BLOOD DIPSTICK (test code=NATE) NEGATIVE Demond/mm3 NEGATIVE UA PH DIPSTICK (test code=KAYLEN) 6.0 5.0-9.0 UA PROTEIN DIPSTICK (test NEGATIVE MG/DL NEGATIVE code=PROU) UA UROBILINIOGEN DIPSTICK (test NORMAL MG/DL NORMAL code=URO) UA NITRITE DIPSTICK (test NEGATIVE NEGATIVE code=NORMA) UA LEUKOCYTE ESTERASE DIPSTICK NEGATIVE /mm3 NEGATIVE (test code=LEUU) UA CULTURE NEEDED? (test NEGATIVE, NO CULTURE Culture Chk code=UACULT) Criteria SOURCE OF URINE: CLEAN CATCHCBC W/O [id number] 23:18:00 Test Item Value Reference Range Comments WHITE BLOOD CELL (test code=WBC) 6.4 K/MM3 3.8-9.8 RED BLOOD CELL (test code=RBC) 4.58 M/MM3 3.58-4.97 HEMOGLOBIN (test code=HGB) 11.3 G/DL 11.2-14.9 HEMATOCRIT (test code=HCT) 37.2 % 33.2-43.5 MEAN CELL VOLUME (test code=MCV) 81 fL 80.7-99.1 MEAN CELL HGB (test code=MCH) 24.7 pg 27.0-34.1 MEAN CELL HGB CONCETRATION (test code=MCHC) 30.4 % 32.2-35.7 RED CELL DISTRIBUTION WIDTH (test code=RDW) 24.4 % 12.1-15.2 PLATELET COUNT (test code=PLT) 252 K/MM3 129-368 NEUTROPHIL # (test code=NT#) 2.87 K/mm3 2.0-7.6 IMMATURE GRANULOCYTE # (test code=IG#) 0.01 x10 3/uL 0-0.03 LYMPHOCYTE # (test code=LY#) 2.82 K/mm3 1.0-3.8 MONOCYTE # (test code=MO#) 0.43 K/mm3 0.1-0.8 EOSINOPHIL # (test code=EO#) 0.28 K/mm3 0.0-0.2 BASOPHIL # (test code=BA#) 0.03 K/mm3 0.0-0.2 NUCLEATED RBC # (test code=NRBC#) 0.00 K/mm3 0.0-0.1 DIFFERENTIAL [id number] 23:18:00 Test Item Value Reference Range Comments RBC MORPHOLOGY REQUIRED (test code=RBCM) PLATELET ESTIMATE (test code=PLTEST) ADEQUATE PLATELET MORPHOLOGY (test code=PLTMORPH) NORMAL CBC W/O [id number] 23:18:00 Test Item Value Reference Range Comments WHITE BLOOD CELL (test code=WBC) 6.4 K/MM3 3.8-9.8 RED BLOOD CELL (test code=RBC) 4.58 M/MM3 3.58-4.97 HEMOGLOBIN (test code=HGB) 11.3 G/DL 11.2-14.9 HEMATOCRIT (test code=HCT) 37.2 % 33.2-43.5 MEAN CELL VOLUME (test code=MCV) 81 fL 80.7-99.1 MEAN CELL HGB (test code=MCH) 24.7 pg 27.0-34.1 MEAN CELL HGB CONCETRATION (test code=MCHC) 30.4 % 32.2-35.7 RED CELL DISTRIBUTION WIDTH (test code=RDW) 24.4 % 12.1-15.2 PLATELET COUNT (test code=PLT) 252 K/MM3 129-368 NEUTROPHIL # (test code=NT#) 2.87 K/mm3 2.0-7.6 IMMATURE GRANULOCYTE # (test code=IG#) 0.01 x10 3/uL 0-0.03 LYMPHOCYTE # (test code=LY#) 2.82 K/mm3 1.0-3.8 MONOCYTE # (test code=MO#) 0.43 K/mm3 0.1-0.8 EOSINOPHIL # (test code=EO#) 0.28 K/mm3 0.0-0.2 BASOPHIL # (test code=BA#) 0.03 K/mm3 0.0-0.2 NUCLEATED RBC # (test code=NRBC#) 0.00 K/mm3 0.0-0.1 DIFFERENTIAL [id number] 23:18:00 Test Item Value Reference Range Comments RBC MORPHOLOGY REQUIRED (test code=RBCM) PLATELET ESTIMATE (test code=PLTEST) ADEQUATE PLATELET MORPHOLOGY (test code=PLTMORPH) NORMAL URINALYSIS [id number] 23:15:00 Test Item Value Reference Range Comments UA COLOR (test code=COLU) YELLOW YELLOW UA APPEARANCE (test code=APPU) SLIGHT CLOUDY CLEAR UA GLUCOSE DIPSTICK (test code=DGLUU) NORMAL MG/DL NORMAL UA BILIRUBIN DIPSTICK (test code=BILU) NEGATIVE MG/DL NEGATIVE UA KETONE DIPSTICK (test code=KETU) NEGATIVE MG/DL NEGATIVE UA SPECIFIC GRAVITY (test code=SGU) 1.015 1.003-1.030 UA BLOOD DIPSTICK (test code=NATE) NEGATIVE Demond/mm3 NEGATIVE UA PH DIPSTICK (test code=KAYLEN) 6.0 5.0-9.0 UA PROTEIN DIPSTICK (test code=PROU) NEGATIVE MG/DL NEGATIVE UA UROBILINIOGEN DIPSTICK (test code=URO) NORMAL MG/DL NORMAL UA NITRITE DIPSTICK (test code=NORMA) NEGATIVE NEGATIVE UA LEUKOCYTE ESTERASE DIPSTICK (test NEGATIVE /mm3 NEGATIVE code=LEUU) UA CULTURE NEEDED? (test code=UACULT) Criteria Culture Chk SOURCE OF URINE: CLEAN CATCHVENOUS THROMBOPHILIA [id number] 07:52:00 Test Item Value Reference Range Comments MISC COAG (test Venous Thrombosis Profile Homocysteine 5.5 code=MISCCOAG) umol/L Homocysteine levels in patients >60 years increase 1-2umol/L.Reference Range:5.0 - 15.0 Factor VIII Activity 181 High % FVIII activity can increase in a variety of clinicalsituations including normal , in samples drawn frompatients (particularly children) who are visibly stressed atthe time of phlebotomy, as acute phase reactants, or inresponse to certain drug therapies such as DDAVP.Persistently elevated FVIII activity is a risk factor forvenous thrombosis as well as recurrence of venousthrombosis. Risk is graded and increases with the degree ofelevation. Although elevated FVIII activity has beenidentified to cluster within families, a genetic basis forthe elevation has not yet been elucidated (Br J Haematol.2012; 157:653-663).Reference Range:57 - 163 Antithrombin Activity, Xcwmti596 % Direct oral anticoagulants such as rivaroxaban, apixaban andedoxaban will lead to spuriously elevated antithrombinactivity levels possibly masking a deficiency.Reference Range:7 months and older: 75 - 135 Prt C Activity (Chromogenic) 106 % Reference Range:17 years and older: 73 - 180Protein S Antigen, Free 75 % Reference Range:7 months and older: 57 - 157This test was developed and its performance characteristicsdetermined by [facility]. It has not been cleared or approvedby the Food and Drug Administration. APTT 29.4 sec This test has not been validated for monitoringunfractionated heparin therapy. aPTT-based therapeuticranges for unfractionated heparin therapy have not beenestablished. Consider ordering Heparin anti-Xa(unfractionated).Reference Range:18 years and older: 22.9 - 30.2APTT 1:1 NPTesting Not Indicated Not indicatedAPTT 1:1 SalineTesting Not Indicated Not indicatedLAC Interpretation Results are interpreted as indeterminate for the presenceof a lupus anticoagulant (LA). Only one phospholipiddependent assay showed evidence of confirmation, with thehexagonal phospholipid neutralization assay result fallingjust above the normal reference interval. This test may befalsely positive if the sample is collected while thepatient is on heparin, direct Xa inhibitor, or directthrombin inhibitor therapy. Only persistent LA meetlaboratory diagnostic criteria for antiphospholipidsyndrome. To confirm or refute the presence of a LA and todetermine persistence, repeat testing in 12 or more weeksis recommended. Ideally, repeat testing should be performedin the absence of anticoagulant therapy. All GIANCARLO-basedantiphospholipid antibodies evaluated are normal. Pleasecontact [facility] if further clarification isneeded.Act. Prt C Resist w/FV Defic.1.6 Low ratio A low activated protein C resistance (APCR) is a risk factorfor venous thrombosis and is a screen for the Factor VLeiden mutation. Consider molecular analysis for thismutation. Other causes for abnormal APCR are uncommon andinclude other rare mutations in the Factor V molecule, and certain drug therapies, including thalidomidetherapy, presence of a lupus anticoagulant, increased FactorVIII levels, and autoantibodies against activated protein C.Reference Range:2.2 - 3.5 DRVVT Screen Seconds 55.4 High sec Reference Range:<=47.0DRVVT Confirm Seconds 55.1 sec DRVVT Ratio 1.0 ratio Reference Range:0.8 - 1.2 Hexagonal Phospholipid Eiojnus03 High sec This value is POSITIVE.This is a qualitative assay and is therefore reported aspositive for lupus anticoagulant or negative. Testing whilethe patient is on anticoagulant therapy, including heparinor dabigatran, may cause a false positive result. Thequantitative value is provided as an aid in diagnosis.Reference Range:0 - 11 Anticardiolipin Ab, IgG <10 GPL Reference Range:Negative: <15Indeterminate: 15 - 20Low to medium positive: >20 - 80High positive: >80Anticardiolipin Ab, IgM <10 MPL Reference Range:Negative: <13Indeterminate: 13 - 20Low to medium positive: >20 - 80High positive: >80 Beta-2 Glycoprotein I, IgG <10 SGU The reference interval reflects a 3SD or 99th percentileinterval, which is thought to represent a potentiallyclinically significant result in accordance with theInternational Consensus Statement on the classificationcriteria for definitive antiphospholipid syndrome (APS). JThromb Larw5977;4:295-306.Reference Range:Negative: <21Beta-2 Glycoprotein I, IgM <10 SMU The reference interval reflects a 3SD or 99th percentileinterval, which is thought to represent a potentiallyclinically significant result in accordance with theInternational Consensus Statement on the classificationcriteria for definitive antiphospholipid syndrome (APS). JThromb Pbna0927;4:295-306.Reference Range:Negative: <33Beta-2 Glycoprotein I, IgA <10 DERIAN The reference interval reflects a 3SD or 99th percentileinterval.Reference Range:Negative: <26 Factor II Gene Mutation Result G-G (Normal-Normal)No prothrombin [id number] mutation present.Interpretation: While the patient does not possess this risk factor, otherthrombotic risk factors may be detected through systematicclinical laboratory analysis.Methodology: Patient DNA was evaluated for the factor II gene mutationat nucleotide 90455 using PCR amplification followed byrestriction analysis and gel electrophoresis.Comments: Simultaneous Risks: If a patient possesses two or morecongenital or acquired thrombophilic risk factors, the riskof thrombosis may rise to more than the sum of the riskratios for the individual risk factors. For instance, acombination of the prothrombin [id number] mutation and thefactor V Leiden mutation may confer an increase inthrombotic risk in the range of 20-30 fold.Recommendations for Genetic Counseling: The prothrombingene mutation is an inherited characteristic. If themutation is present, we recommend that the patient andtheir family consider genetic counseling to obtainadditional information on inheritance and to identify otherfamily members at risk.Testing Characteristics: Genetic testing providesexceptionally high sensitivity and specificity. Inaccurateresults are limited to rare polymorphisms in primer bindingsites and to misidentification of specimens by collectorsor laboratory personnel. This assay detects only theprothrombin R52415U mutation and does not detect othergenetic abnormalities.This test was developed and its performance characteristicsdetermined by [facility]. It has not been cleared or approvedby the Food and Drug Administration.References: Presley Maza, et al. Br J of Haem. 1997;98:907.Sherrie PEREZ et al. Br J of Haem. 1997;98:353. Xi Mol.Diagn. 2001;6(3):201.Rodri Richardson, et al. Thromb Haemost. 2001;86:809-16.Jayda Carroll, et al. Thromb Haemost. 1999;82:1583. Factor V LeidenFactor V Leiden Result G-A (Normal-Mutant)Positive - Heterozygous for factor V Leiden mutation.Interpretation: The factor V Leiden mutation is present on one copy of thepatient's factor V gene. Presence of the heterozygousfactor V Leiden mutation confers an approximate 5-foldincrease in the risk of venous thrombosis.Methodology: Patient DNA was evaluated for the factor V Leiden mutationat nucleotide 1691 using allele specific PCR technologyfollowed by gel electrophoresis.Comments: Simultaneous Risks: If a patient possesses two or morecongenital or acquired thrombophilic risk factors, the riskof thrombosis may rise to more than the sum of the riskratios for the individual risk factors. For instance, acombination of the prothrombin [id number] mutation and thefactor V Leiden mutation may confer an increase inthrombotic risk in the range of 20-30 fold.Recommendations for Genetic Counseling: The factor V Leidenmutation is an inherited characteristic. If the mutation ispresent, we recommend that the patient and their familyconsider genetic counseling to obtain additionalinformation on inheritance and to identify other familymembers at risk.Testing Characteristics: Genetic testing providesexceptionally high sensitivity and specificity. Inaccurateresults are limited to rare polymorphisms in primer bindingsites and to misidentification of specimens by collectorsor laboratory personnel. This assay detects only the factorV Leiden mutation and does not detect other geneticabnormalities.This test was developed and its performance characteristicsdetermined by [facility]. It has not been cleared or approvedby the Food and Drug Administration. PER CHUCKIE RNVENOUS THROMBOSIS PROFILETEST CODE: [id number]: THREE TUBES, 2 ML PPP EACH, FROZEN 2 ML SERUM FROZEN 5 ML EDTA WHOLE BLOOD, [facility], [id number] 15:41:00 RUN DATE: 09/13/18 [facility] PAGE 1 RUN TIME: 1541 Specimen Inquiry RUN USER: INTERFACE PATIENT: LEIGH FRYE LOC: Z.5MU U #: [id number] AGE/SX: 38/F ROOM: [facility] REREG DR: Jani Mckoy MD : 80 BED: A DIS: 09/13/18 STATUS: DIS IN TLOC: SPEC #: [id number] RECD: 09/12/18 STATUS: BILL ZULETA #: [id number] LAST: 09/12/18 [facility] DR: Jani Mckoy MD ENTERED: 09/12/18 SP TYPE: FLTHYR OTHR DR: Ko Valles MD, AsiaE DPM Reilly, Christopher L MD Shih, Patrick MDORDERED: CB, FNA, FNA SAMPLE ADEQ CODES: [id number] - THYROID GLAND [id number] [id number] - THYROID GLAND NEEDLE NC4839 C16365 - THYROID GLAND NEOPLASM, UNCER [id number] X52907- THYROID GLAND ASPIRATION, NOS COPIES [place]: [place] [address] [place] [address] Ko Valles MD [address] [facility] [address] [place] [address] [email or web address] [address] [place] [address] [place] [address] [place] [address] [place] [address] [facility] [address] [place] [address] PROCEDURES : CB (09/12/18) FNA (09/12/18) FNA SAMPLE ADEQ ( 09/13/18) TISSUES: A. THYROID GLAND, NOS - RIGHT THYROID FNA CONTINUED ON NEXT PAGE RUN DATE: 09/13/18 [facility] PAGE 2 RUN TIME: 1541 Specimen Inquiry RUN USER: INTERFACE - SPEC #: [id number] PATIENT: LEIGH FRYE # [id number] (Continued) CLINICAL HISTORY PITUITARY TUMOR CONSULTATION Dr. Yeny Lubin has reviewed this case and agrees with the diagnosis. CPT CODES CPT CODE(S): 92368 , 28323 , 42446 , , , , FINAL DIAGNOSIS Thyroid, right, fine needle aspiration: SUSPICIOUS FOR FOLLICULAR NEOPLASM GROSS DESCRIPTION Right thyroid FNA. Four passes were performed. Received are is less than 1 mL of bloody fluid and eight smears. The smears are sent for Pap and Diff-Quik stains. One cell block is prepared. /latia MICROSCOPIC DESCRIPTION Right thyroid FNA. Eight presmeared slides and cell block slides are reviewed. Slides are adequate for evaluation. The smears are very cellular with large sheets of follicular cells with focal nuclear overlapping and some colloid. There is some architectural irregularities and microfollicles identified. There is no evidence of nuclear groovings or pseudoinclusions identified. Rare multinucleated giant cells and lymphocytes are identified in the background. No definitive evidence of malignancy identified. /cm SPECIMEN ADEQUACY Adequacy check was performed by Dr. George. Signed SIGNATURE ON FILE Serafin Burton 09/13/18 1541 ---- -------- END OF REPORT ADRENOCORTICOTROPIC [id number] 07:25:00 Test Item Value Reference Range Comments ADRENOCORTICOTROPIC HORMONE (test 10.1 pg/mL 7.2-63.3 ACTH reference interval code=ACTH) for samples collected between 7 and10 AM.Performed At: [facility] [id number] Etienne Farfan MD Ph:[phone] - US FINE NEEDLE [id number] 15:08:00 Patient Name: LEIGH FRYE Unit No: [id number] EXAMS: CPT CODE: [id number] US FINE NEEDLE ASPIRATION 25623 Procedure: Ultrasound-guided right thyroid FNA Location: B2 Clinical Indication: 38-year-old with nodule Comparison: September 10, 2018 Technique: Written informed consent was obtained. Patient was placed supine on the stretcher and the right neck prepped and draped. Ultrasound was used to identify the nearly 3 cmwell-circumscribed hypoechoic mass. 1% lidocaine was given. Under direct ultrasound visualization, multiple fine-needle aspiration specimens were obtained using 25 and 23-gauge needles. These were deemed adequate by the pathologist. Patient tolerated the procedure well, without immediate complication. Impression: Successful FNA of aright thyroid 3 cm nodule. Electronically Signed by Polly Valles on 2018 at 8875 Reported and signed by: Ko Valles M.D. CC: Technologist: Laura Devries Transcrpt Date/Tm/Trnsp: 09/12/2018 (7336) Neno.RB24 Orig Print D/T: S: 09/12/2018 (1511) [facility] NAME: LEIGH FRYE [address] [address] PHYS: [place] [address] : 1980 AGE: 38 SEX: F LOC: Nani Mccullough PHONE #: [phone] EXAM DATE: 09/12/2018 STATUS: ADM IN FAX #: [phone] RADIOLOGY NO: PAGE 1 Signed ReportUR OSMOLALITY [id number] 13:16:00 Test Item Value Reference Range Comments UR OSMOLALITY RANDOM (test code=OSMOU) 311 MOS/KG 300-1200 OSMOLALITY [id number] 10:17:00 Test Item Value Reference Range Comments OSMOLALITY SERUM (test code=OSMO) 297 mOsm/kg 275-295 [id number] 07:19:00 Test Item Value Reference Range Comments GASTRIN (test 151 pg/mL 0-115 Siemens Immulite 2000 code=LINDA) Immunochemiluminometric assay (ICMA)Values obtained with different assay methods or kits cannotbe used interchangeably. Results cannot be interpreted asabsolute evidence of the presence or absence of malignantdisease.Performed At: [address] [id number] Peterson MD Ph:[phone] PARATHYROID HORMONE [id number] 07:02:00 Test Item Value Reference Range Comments PARATHYROID HORMONE INTACT (test code=PARAI) 100.6 pg/mL 7.5-53.5 CBC W/AUTO [id number] 10:14:00 Test Item Value Reference Range Comments WHITE BLOOD CELL (test code=WBC) 8.9 K/MM3 3.8-9.8 RED BLOOD CELL (test code=RBC) 3.73 M/MM3 3.58-4.97 HEMOGLOBIN (test code=HGB) 8.6 G/DL 11.2-14.9 HEMATOCRIT (test code=HCT) 29.6 % 33.2-43.5 MEAN CELL VOLUME (test code=MCV) 79 fL 80.7-99.1 MEAN CELL HGB (test code=MCH) 23.1 pg 27.0-34.1 MEAN CELL HGB CONCETRATION (test code=MCHC) 29.1 % 32.2-35.7 RED CELL DISTRIBUTION WIDTH (test code=RDW) 24.6 % 12.1-15.2 PLATELET COUNT (test code=PLT) 321 K/MM3 129-368 MEAN PLATELET VOLUME (test code=MPV) 10.0 fl 7.4-10.4 NEUTROPHIL % (test code=NT%) 52.2 % 43-75 IMMATURE GRANULOCYTE % (test code=IG%) 0.7 % 0.0-2.0 LYMPHOCYTE % (test code=LY%) 33.6 % 14-44 MONOCYTE % (test code=MO%) 7.9 % 4-13 EOSINOPHIL % (test code=EO%) 4.9 % 0-6 BASOPHIL % (test code=BA%) 0.7 % 0-2 NUCLEATED RBC % (test code=NRBC%) 0.0 % 0-1.0 NEUTROPHIL # (test code=NT#) 4.64 K/mm3 2.0-7.6 IMMATURE GRANULOCYTE # (test code=IG#) 0.06 x10 3/uL 0-0.03 LYMPHOCYTE # (test code=LY#) 2.99 K/mm3 1.0-3.8 MONOCYTE # (test code=MO#) 0.70 K/mm3 0.1-0.8 EOSINOPHIL # (test code=EO#) 0.44 K/mm3 0.0-0.2 BASOPHIL # (test code=BA#) 0.06 K/mm3 0.0-0.2 NUCLEATED RBC # (test code=NRBC#) 0.00 K/mm3 0.0-0.1 DIFFERENTIAL [id number] 10:14:00 Test Item Value Reference Range Comments RBC MORPHOLOGY REQUIRED (test code=RBCM) NORMAL PLATELET ESTIMATE (test code=PLTEST) ADEQ ADEQUATE PLATELET MORPHOLOGY (test code=PLTMORPH) NORMAL NORMAL T4 [id number] 07:55:00 Test Item Value Reference Range Comments T4 FREE (test code=T4F) 1.3 NG/DL 0.78-2.19 THYROID STIMULATING [id number] 07:55:00 Test Item Value Reference Range Comments THYROID STIMULATING HORMONE 1.530 MIU/L 0.465-4.68 Please be aware that bias (test code=TSH) results for TSH may occur forpatient who are taking Biotin supplements. CORTISOL [id number] 07:53:00 Test Item Value Reference Range Comments CORTISOL AM (test code=CORTAM) 2.45 ug/dL 4.46-22.7 T4 [id number] 07:41:00 Test Item Value Reference Range Comments T4 FREE (test code=T4F) 1.3 NG/DL 0.78-2.19 THYROID STIMULATING [id number] 07:41:00 Test Item Value Reference Range Comments THYROID STIMULATING HORMONE (test code=TSH) MIU/L 0.465-4.68 COMPREHENSIVE METABOLIC [id number] 07:25:00 Test Item Value Reference Range Comments SODIUM (test code=NA) 142 MMOL/L 137-145 POTASSIUM (test code=K) 4.4 MMOL/L 3.5-5.1 CHLORIDE (test code=CL) 107 MMOL/L 98-107 CARBON DIOXIDE (test code=CO2) 28 MMOL/L 22-30 ANION GAP (test code=GAP) 11 MMOL/L 14-24 GLUCOSE (test code=GLU) 120 MG/DL 74-106 BLOOD UREA NITROGEN (test 15 MG/DL 7-17 code=BUN) GLOMERULAR FILTRATION RATE > 60 Reporting units: (test code=GFR) ml/min/1.73 m2 (Modified MDRD Formula)Reference Range: > or=60 ml/min/1.73 m2 CREATININE (test code=CREAT) 0.70 MG/DL 0.52-1.04 TOTAL PROTEIN (test code=PROT) 7.1 G/DL 6.3-8.2 ALBUMIN (test code=ALB) 3.3 G/DL 3.5-5.0 CALCIUM (test code=CA) 9.5 MG/DL 8.4-10.2 BILIRUBIN TOTAL (test 0.1 MG/DL 0.2-1.3 code=BILT) SGOT/AST (test code=AST) 55 UNITS/L 14-36 SGPT/ALT (test code=ALT) 51 UNITS/L 9-52 ALKALINE PHOSPHATASE (test 131 UNITS/L 38-126 code=ALKP) [id number] 07:25:00 Test Item Value Reference Range Comments MAGNESIUM (test code=MAG) 2.0 MG/DL 1.6-2.3 CBC W/AUTO [id number] 07:09:00 Test Item Value Reference Range Comments WHITE BLOOD CELL (test code=WBC) 8.9 K/MM3 3.8-9.8 RED BLOOD CELL (test code=RBC) 3.73 M/MM3 3.58-4.97 HEMOGLOBIN (test code=HGB) 8.6 G/DL 11.2-14.9 HEMATOCRIT (test code=HCT) 29.6 % 33.2-43.5 MEAN CELL VOLUME (test code=MCV) 79 fL 80.7-99.1 MEAN CELL HGB (test code=MCH) 23.1 pg 27.0-34.1 MEAN CELL HGB CONCETRATION (test code=MCHC) 29.1 % 32.2-35.7 RED CELL DISTRIBUTION WIDTH (test code=RDW) 24.6 % 12.1-15.2 PLATELET COUNT (test code=PLT) 321 K/MM3 129-368 MEAN PLATELET VOLUME (test code=MPV) 10.0 fl 7.4-10.4 NEUTROPHIL % (test code=NT%) 52.2 % 43-75 IMMATURE GRANULOCYTE % (test code=IG%) 0.7 % 0.0-2.0 LYMPHOCYTE % (test code=LY%) 33.6 % 14-44 MONOCYTE % (test code=MO%) 7.9 % 4-13 EOSINOPHIL % (test code=EO%) 4.9 % 0-6 BASOPHIL % (test code=BA%) 0.7 % 0-2 NUCLEATED RBC % (test code=NRBC%) 0.0 % 0-1.0 NEUTROPHIL # (test code=NT#) 4.64 K/mm3 2.0-7.6 IMMATURE GRANULOCYTE # (test code=IG#) 0.06 x10 3/uL 0-0.03 LYMPHOCYTE # (test code=LY#) 2.99 K/mm3 1.0-3.8 MONOCYTE # (test code=MO#) 0.70 K/mm3 0.1-0.8 EOSINOPHIL # (test code=EO#) 0.44 K/mm3 0.0-0.2 BASOPHIL # (test code=BA#) 0.06 K/mm3 0.0-0.2 NUCLEATED RBC # (test code=NRBC#) 0.00 K/mm3 0.0-0.1 DIFFERENTIAL [id number] 07:09:00 Test Item Value Reference Range Comments RBC MORPHOLOGY REQUIRED (test code=RBCM) PLATELET ESTIMATE (test code=PLTEST) ADEQUATE PLATELET MORPHOLOGY (test code=PLTMORPH) NORMAL CBC W/AUTO [id number] 07:09:00 Test Item Value Reference Range Comments WHITE BLOOD CELL (test code=WBC) 8.9 K/MM3 3.8-9.8 RED BLOOD CELL (test code=RBC) 3.73 M/MM3 3.58-4.97 HEMOGLOBIN (test code=HGB) 8.6 G/DL 11.2-14.9 HEMATOCRIT (test code=HCT) 29.6 % 33.2-43.5 MEAN CELL VOLUME (test code=MCV) 79 fL 80.7-99.1 MEAN CELL HGB (test code=MCH) 23.1 pg 27.0-34.1 MEAN CELL HGB CONCETRATION (test code=MCHC) 29.1 % 32.2-35.7 RED CELL DISTRIBUTION WIDTH (test code=RDW) 24.6 % 12.1-15.2 PLATELET COUNT (test code=PLT) 321 K/MM3 129-368 MEAN PLATELET VOLUME (test code=MPV) 10.0 fl 7.4-10.4 NEUTROPHIL % (test code=NT%) 52.2 % 43-75 IMMATURE GRANULOCYTE % (test code=IG%) 0.7 % 0.0-2.0 LYMPHOCYTE % (test code=LY%) 33.6 % 14-44 MONOCYTE % (test code=MO%) 7.9 % 4-13 EOSINOPHIL % (test code=EO%) 4.9 % 0-6 BASOPHIL % (test code=BA%) 0.7 % 0-2 NUCLEATED RBC % (test code=NRBC%) 0.0 % 0-1.0 NEUTROPHIL # (test code=NT#) 4.64 K/mm3 2.0-7.6 IMMATURE GRANULOCYTE # (test code=IG#) 0.06 x10 3/uL 0-0.03 LYMPHOCYTE # (test code=LY#) 2.99 K/mm3 1.0-3.8 MONOCYTE # (test code=MO#) 0.70 K/mm3 0.1-0.8 EOSINOPHIL # (test code=EO#) 0.44 K/mm3 0.0-0.2 BASOPHIL # (test code=BA#) 0.06 K/mm3 0.0-0.2 NUCLEATED RBC # (test code=NRBC#) 0.00 K/mm3 0.0-0.1 DIFFERENTIAL [id number] 07:09:00 Test Item Value Reference Range Comments RBC MORPHOLOGY REQUIRED (test code=RBCM) PLATELET ESTIMATE (test code=PLTEST) ADEQUATE PLATELET MORPHOLOGY (test code=PLTMORPH) NORMAL - US HEAD AND [id number] 09:01:00 Patient Name: LEIGH FRYE Unit No: [id number] EXAMS: CPT CODE : [id number] US HEAD AND NECK 53296 LOCATION: T18 EXAM: - US HEAD AND NECK INDICATION: nodule rt thyroid area COMPARISON: CT of the chest September 04, 2018. Thyroid ultrasound August 28, 2018 TECHNIQUE: Real-time grayscale sonographic images of the thyroid are submitted for interpretation. FINDINGS: Right thyroid lobe measures 5.4 x 2.1 x 1.9 cm left thyroid lobe measures 5.2 x 1.7 x 1.4 cm. Thyroid isthmus measures 2.7 mm in thickness. Hypoechoic solid nodule of the right thyroid lobe measures 3.3 x 1.9 x 2.1 cm. Previously this measured up to 2.7 x 2.1 x 1.7 cm. IMPRESSION: Solid nodule in the right thyroid lobe is increased in size compared to August 28, 2018, measuring up to 3.3 cm,previously 2.7 cm. at 0901 Reported and signed by: Renetta Mar MD CC: Technologist: Alexandra Greenwood ([facility])Transcrpt Date/Tm/Trnsp: (900) t.[email or web address].[email or web address] Orig Print D/T: S: 09/10/2018 (903) [facility] NAME: LEIGH FRYE [id number] PHYS: AJU - [place] [address] : 1980 AGE: 38 SEX: F LOC: Z.504 A PHONE #: [phone] EXAM DATE: 09/10/2018 STATUS: ADMIN FAX #: [phone] RADIOLOGY NO: PAGE 1 Signed Report- XR CHEST 2 [id number] 09:35:00 Patient Name: LEIGH FRYE Unit No: [id number] EXAMS: CPT CODE: [id number] XR CHEST 2 V 18031 EXAM: CHEST 2 VIEWS INDICATION: Follow-up infiltrates LOCATION: B2 COMPARISON: September 07, 2018 TECHNIQUE: PA and lateral views of the chest. FINDINGS: The right PICC tip overlies the SVC. The heart size is normal. There are diffuse interstitial and airspace opacities throughout both lungs unchanged from the prior examination. No pneumothorax or pleural effusion is identified. The osseous structures are normal. IMPRESSION: Diffuse interstitial and airspace opacities throughout both lungs unchanged from the prior examination. at 0935 Reported and signed by: Ida Obrien MD CC: Technologist: Serenity Cali, RT (R) Transcrpt Date/Tm/Trnsp: 09/09/2018 (0935) t16 Orig Print D/T: S: 09/09/2018 (0938) [facility] NAME: LEIGH FRYE [address] [place] [address] PHYS: [place] [address] : 1980 AGE: 38 SEX: F LOC: Z.504 A PHONE #:[phone] EXAM DATE: 09/09/2018 STATUS: ADM IN FAX #: [phone] RADIOLOGY NO: PAGE 1 Signed ReportBUN [id number] 07: 02:00 Test Item Value Reference Range Comments BLOOD UREA NITROGEN (test 9 MG/DL 7-17 code=BUN) GLOMERULAR FILTRATION RATE > 60 Reporting units: ml/min/1.73 (test code=GFR) m2 (Modified MDRD Formula)Reference Range: > or=60 ml/min/1.73 m2 CREATININE (test code=CREAT) 0.70 MG/DL 0.52-1.04 BASIC METABOLIC [id number] 14:53:00 Test Item Value Reference Range Comments SODIUM (test code=NA) 142 MMOL/L 137-145 POTASSIUM (test code=K) 4.1 MMOL/L 3.5-5.1 CHLORIDE (test code=CL) 105 MMOL/L 98-107 CARBON DIOXIDE (test code=CO2) 32 MMOL/L 22-30 GLUCOSE (test code=GLU) 114 MG/DL 74-106 BLOOD UREA NITROGEN (test 10 MG/DL 7-17 code=BUN) GLOMERULAR FILTRATION RATE > 60 Reporting units: ml/min/1.73 (test code=GFR) m2 (Modified MDRD Formula)Reference Range: > or=60 ml/min/1.73 m2 CREATININE (test code=CREAT) 0.80 MG/DL 0.52-1.04 CALCIUM (test code=CA) 9.2 MG/DL 8.4-10.2 Comments to Nurse First Assist: draw after picc line inserted today- FLUORO GUID CTRL ACC [id number] 14:44:00 Patient Name: LEIGH FRYE Unit No: [id number] EXAMS: CPT CODE: [id number] FLUORO GUID CTRL ACC DEV [id number] EXAMINATION: NON-TUNNELED CENTRAL VENOUS CATHETER PLACEMENT. LOCATION: B2. HISTORY: Pneumonia and recent pituitary adenoma resection. SEDATION: The patient did not require conscious sedation for the procedure. RADIATION DOSE : Total reference air kerma 7.42 mGy. ANTIBIOTICS: None. Not indicated. CONTRAST: None. TECHNIQUE: The risks, benefits, and alternatives were discussedand informed consent was obtained. Prior to beginning the procedure, [place] Protocolwas used to confirm the patient's identity and planned procedure. Maximum sterile barriers including cap, mask, hand hygiene, sterile gloves, sterile gown, large sterile drape and cutaneous antisepsis were used. The skin over the right basilic vein was sterilely prepped, draped, and infiltrated with lidocaine. Prior to the procedure, the target vessel was evaluated by ultrasound. An image of the patent vessel was recorded and saved to PACS. After sterile prep, this vessel was accessed with a micropuncture needle using real-time ultrasound guidance. A guidewire and catheter were then passed centrally using fluoroscopic guidance. The intravascular length from the access site to the right atrium wasassessed. After dilating the tract, a dual-lumen PICC was inserted over the guidewire and through a peel-away sheath. The catheter was flushed and secured in place. A sterile dressing was applied. ESTIMATED BLOOD LOSS: Less than 30 milliliters.COMPLICATIONS: None. DISCHARGED TO: Inpatient unit. FINDINGS: Ultrasounddemonstrates a patent right basilic vein. The final fluoroscopic image demonstrates the catheter with its tip at the cavoatrial junction. No complications are seen.IMPRESSION: Successful non-tunneled PICC placement via the right basilic vein. [facility] NAME: LEIGH FRYE [address] [address] PHYS: [place] [address] : 1980 AGE: 38 SEX: F LOC: Z.954 A PHONE #: [phone] EXAM DATE: 09/08/2018 STATUS: ADM IN FAX #: [phone] RADIOLOGY NO: PAGE 1 Signed Report (CONTINUED) Patient Name: LEIGH FRYE Unit No: [id number] EXAMS: CPT CODE : [id number] FLUORO GUID CTRL ACC DEV 73914 < Continued> PLAN: The catheter is ready for immediate use. When treatment is completed, this catheter can be removed at the bedside according to standard hospital protocol. automatic oven operator : Jacqueline Fleming PA-C. at 1444 Reported and signed by: Alireza Pepe MD CC: Technologist: ROCHELLE Umana, RT(R) Transcrpt Date/Tm/Trnsp: 2018 (1444) t.CONRADOR.PR7 Orig Print D/T: S: 09/08/2018 (1446) [facility] NAME: LEIGH FRYE [id number] [address] PHYS: [place] [address] :1980 AGE: 38 SEX: F LOC: Z.504 A PHONE #: [phone] EXAM DATE: 09/08/2018 STATUS: ADM IN FAX #: [phone] RADIOLOGY NO: PAGE 2 Signed Report- US GUIDANCE VASC [id number] 14:44:00 Patient Name: LEIGH FRYE Unit No: [id number] EXAMS: CPT CODE: [id number] US GUIDANCE VASC ACCESS [id number] EXAMINATION: NON-TUNNELED CENTRAL VENOUS CATHETER PLACEMENT. LOCATION: B2. HISTORY: Pneumonia and recent pituitary adenoma resection. SEDATION: The patient did not require conscious sedation for the procedure. RADIATION DOSE: Total reference air kerma 7.42 mGy. ANTIBIOTICS: None. Not indicated. CONTRAST: None. TECHNIQUE : The risks, benefits, and alternatives were discussedand informed consent was obtained. Prior to beginning the procedure, [place] Protocolwas used to confirm the patient's identity and planned procedure. Maximum sterile barriers including cap, mask, hand hygiene, sterile gloves, sterile gown, large sterile drape and cutaneous antisepsis were used. The skin over the right basilic vein was sterilely prepped, draped, and infiltrated with lidocaine. Prior to the procedure, the target vessel was evaluated by ultrasound. An image of the patent vessel was recorded and saved to PACS. After sterile prep, this vessel was accessed with a micropuncture needle using real-time ultrasound guidance. A guidewire and catheter were then passed centrally using fluoroscopic guidance. The intravascular length from the access site to the right atrium wasassessed. After dilating the tract, a dual-lumen PICC was inserted over the guidewire and through a peel-away sheath. The catheter was flushed and secured in place. A sterile dressing was applied. ESTIMATED BLOOD LOSS: Less than 30 milliliters.COMPLICATIONS: None. DISCHARGED TO: Inpatient unit. FINDINGS: Ultrasounddemonstrates a patent right basilic vein. The final fluoroscopic image demonstrates the catheter with its tip at the cavoatrial junction. No complications are seen.IMPRESSION : Successful non-tunneled PICC placement via the right basilic vein. [facility] NAME: LEIGH FRYE [address] PHYS: [place] [address] : 1980 AGE: 38 SEX: F LOC: Nani Mccullough PHONE #: [phone] EXAM DATE: 09/08/2018 STATUS: ADM IN FAX #: [phone] RADIOLOGY NO: PAGE 1 Signed Report (CONTINUED) Patient Name: LEIGH FRYE Unit No: [id number] EXAMS: CPT CODE : [id number] US GUIDANCE VASC ACCESS 67022 < Continued> PLAN: The catheter is ready for immediate use. When treatment is completed, this catheter can be removed at the bedside according to standard hospital protocol. automatic oven operator : Jacqueline Fleming PA-C. at 1444 Reported and signed by: Alireza Pepe MD CC: Technologist: ROCHELLE Umana, RT(R) Transcrpt Date/Tm/Trnsp: 2018 (2364) t.SDR.PR7 Orig Print D/T: S: 09/08/2018 (7905) [facility] NAME: LEIGH FRYE [id number] PHYS: [place] [address] :1980 AGE: 38 SEX: F LOC: ZKoby504 A PHONE #: [phone] EXAM DATE: 09/08/2018 STATUS: ADM IN FAX #: [phone] RADIOLOGY NO: PAGE 2 Signed ReportB-TYPE NATRIURETIC [id number] 13:13:00 Test Item Value Reference Range Comments B-TYPE NATRIURETIC PEPTIDE (test code=BNP) 222.0 PG/ML 0-100 [id number] 12:39:00 Test Item Value Reference Range Comments HOMOCYSTEINE (test code=HOMOCY) 6.3 umol/L 0.0-15.0 Performed At: [facility] [address] [id number] Kyle L MD Ph:[phone] PATIENT IS A HARD STICK. UNABLE TO GET BLOOD SAMPLE.NOTIFIED PATIENT CARE STAFF : JANET MOORE 09/06/18 AT 1427 BY TANNERALG - VEIN FINDER USED.PER CHUCKIE RNADRENOCORTICOTROPIC [id number] 07:16:00 Test Item Value Reference Range Comments ADRENOCORTICOTROPIC HORMONE (test 16.3 pg/mL 7.2-63.3 ACTH reference interval code=ACTH) for samples collected between 7 and10 AM.Performed At: [facility] [address] [place], [place] [id number] Etienne Farfan MD Ph:[phone] - XR CHEST 2 [id number] 17:42:00 Patient Name: LEIGH FRYE Unit No: [id number] EXAMS: CPT CODE: [id number] XR CHEST 2 V 88170 Chest Radiographs, 2 views. Location: B2 ClinicalIndication: 38-year-old with right lower lobe aspiration pneumonia Comparison: September 04, 2018 Findings: PA and lateral views of the chest were obtained. There isdense interstitial opacification throughout the mid and lower lungs. Streaky focal opacification of the right mid lung has slightly improved. No pneumothorax or overt pleural effusion. No acute osseous abnormality. Impression: 1. The focal infiltrate of the right mid to lower lung has slightly improved since the prior exam. 2. There is dense interstitial opacification throughout the mid and lower lungs, worsened from prior study. Differential considerations include pulmonary edema or an atypical infectious process. * * at 1742 Reported and signed by: Ko Valles M.D. CC: Technologist: RT Andressa(R) Transcrpt Date/Tm/Trnsp: 09/07/2018 (174) tDEB.RB24 Orig Print D/T: S: 09/07/2018 (3650) [facility] NAME: LEIGH FRYE [address] PHYS: [place] [address] : 1979 AGE: 38 SEX: F LOC: Z.504 A PHONE #: [phone] EXAM DATE: 09/07/2018 STATUS: ADM IN FAX #: [phone] RADIOLOGY NO:PAGE 1 Signed ReportVANCOMYCIN [id number] 03:58:00 Test Item Value Reference Range Comments VANCOMYCIN TROUGH (test code=VANCT) 10.7 UG/ML 10.0-20.0 CORTISOL [id number] 12:02:00 Test Item Value Reference Range Comments CORTISOL AM (test code=CORTAM) 19.70 ug/dL 4.46-22.7 UR 17 [id number] 07:38:00 Test Item Value Reference Range Comments UR 17 HYDROXYCORTICOSTEROIDS (test MG/24HR 4.0-14.0 Hours Collected 24 hr code=17HCST) Total Volume 3500 mL Creatinine, Urine - per iyjgjv99 mg/dL Creatinine, Urine - per 24h 1400 mg/d 700 - 1600 17Hydroxycorticoster. mg/g [place] <5.0 mg/gCR 2.0 - 6.5 17 OH-Corticosteroids mg/day <7.0 mg/d 4.0 - 14.0 CORTISOL [id number] 19:42:00 Test Item Value Reference Range Comments CORTISOL PM (test code=CORTPM) 9.97 mcg/dL 3.09-16.66 [id number] 13:04:00 Test Item Value Reference Range Comments VANCOMYCIN (test code=VANCO) 10.6 mcg/ML 5.0-26.0 BASIC METABOLIC [id number] 08:39:00 Test Item Value Reference Range Comments SODIUM (test code=NA) 142 MMOL/L 137-145 POTASSIUM (test code=K) 3.5 MMOL/L 3.5-5.1 CHLORIDE (test code=CL) 106 MMOL/L 98-107 CARBON DIOXIDE (test code=CO2) 27 MMOL/L 22-30 GLUCOSE (test code=GLU) 125 MG/DL 74-106 BLOOD UREA NITROGEN (test 9 MG/DL 7-17 code=BUN) GLOMERULAR FILTRATION RATE > 60 Reporting units: ml/min/1.73 (test code=GFR) m2 (Modified MDRD Formula)Reference Range: > or=60 ml/min/1.73 m2 CREATININE (test code=CREAT) 0.70 MG/DL 0.52-1.04 CALCIUM (test code=CA) 8.8 MG/DL 8.4-10.2 [id number] 08:39:00 Test Item Value Reference Range Comments MAGNESIUM (test code=MAG) 1.9 MG/DL 1.6-2.3 HGB [id number] 08:35:00 Test Item Value Reference Range Comments HEMOGLOBIN (test code=HGB) 7.5 G/DL 11.2-14.9 HEMATOCRIT (test code=HCT) 24.7 % 33.2-43.5 WHITE BLOOD [id number] 08:35:00 Test Item Value Reference Range Comments WHITE BLOOD CELL (test code=WBC) 5.7 K/MM3 3.8-9.8 UR 17 KETOGENIC [id number] 08:13:00 Test Item Value Reference Range Comments UR 17 KETOGENIC mg/24 hr 3.0-15.0 Cortisol, Urinary Free STEROIDS (test Cortisol,F,ug/L,U A 59 ug/L code=17KETGU) Undefined Cortisol,F,ug/24hr,U 136 High ug/24 hr 6 - 42 Comments:A This test was developed and its performancecharacteristics determined by[facility]. It has not been cleared or approved by the Food andDrugAdministration. ADRENOCORTICOTROPIC [id number] 07:27:00 Test Item Value Reference Range Comments ADRENOCORTICOTROPIC HORMONE (test 8.5 pg/mL 7.2-63.3 ACTH reference interval code=ACTH) for samples collected between 7 and10 AM.Performed At: [facility] [address] [place], [place] [id number] Etienne Farfan MD Ph:[phone] PROCALCITONIN (PCT)2018-09-05 06:48:00 Test Item Value Reference Range Comments PROCALCITONIN (PCT) (test < 0.05 NG/ML PROCALCITONIN (PCT) NORMAL code=PROCAL) RANGE (ADULT):<0.05 NG/ML. - a concentration < 0.5 ng/mL represents a low risk ofsevere sepsis and/or septic shock. - a concentration > 2 ng/mL represents a high risk ofsevere sepsis and/or septic shock. Nevertheless, concentrations < 0.5 ng/mL do not exclude aninfection, on account of localized infections (withoutsystemic signs) which can be associated with such lowconcentrations, or a systemic infection in its initialstages (< 6 hours). Furthermore, increased procalcitonincan occur without infection. PCT concentrations between 0.5and 2.0 ng/mL should be interpreted taking into account thepatient's history. It is recommended to retest PCT within 6-24 hours if any concentrations < 2 ng/mL are obtained. CORTISOL [id number] 06:28:00 Test Item Value Reference Range Comments CORTISOL AM (test code=CORTAM) 5.71 ug/dL 4.46-22.7 VANCOMYCIN [id number] 05:58:00 Test Item Value Reference Range Comments VANCOMYCIN TROUGH (test code=VANCT) 20.8 UG/ML 10.0-20.0 CORTISOL [id number] 17:52:00 Test Item Value Reference Range Comments CORTISOL PM (test code=CORTPM) 11.10 mcg/dL 3.09-16.66 B-TYPE NATRIURETIC [id number] 10:19:00 Test Item Value Reference Range Comments B-TYPE NATRIURETIC PEPTIDE (test code=BNP) 151.0 PG/ML 0-100 Comments to [facility]: add on to blood in labPROCALCITONIN (PCT)2018-09-04 09 :27:00 Test Item Value Reference Range Comments PROCALCITONIN (PCT) (test < 0.05 NG/ML PROCALCITONIN (PCT) NORMAL code=PROCAL) RANGE (ADULT):<0.05 NG/ML. - a concentration < 0.5 ng/mL represents a low risk ofsevere sepsis and/or septic shock. - a concentration > 2 ng/mL represents a high risk ofsevere sepsis and/or septic shock. Nevertheless, concentrations < 0.5 ng/mL do not exclude aninfection, on account of localized infections (withoutsystemic signs) which can be associated with such lowconcentrations, or a systemic infection in its initialstages (< 6 hours). Furthermore, increased procalcitonincan occur without infection. PCT concentrations between 0.5and 2.0 ng/mL should be interpreted taking into account thepatient's history. It is recommended to retest PCT within 6-24 hours if any concentrations < 2 ng/mL are obtained. Comments to Nurse First Assist: add on to blood in [id number] 09:10:00 Test Item Value Reference Range Comments TROPONIN-I (test code=TROPI) < 0.012 NG/ML 0.012-0.033 LACTIC [id number] 09:02:00 Test Item Value Reference Range Comments LACTIC ACID (test code=LACT) 0.9 MMOL/L 0.7-2.1 CBC W/AUTO [id number] 07:29:00 Test Item Value Reference Range Comments WHITE BLOOD CELL (test code=WBC) 6.8 K/MM3 3.8-9.8 RED BLOOD CELL (test code=RBC) 3.51 M/MM3 3.58-4.97 HEMOGLOBIN (test code=HGB) 8.0 G/DL 11.2-14.9 HEMATOCRIT (test code=HCT) 26.9 % 33.2-43.5 MEAN CELL VOLUME (test code=MCV) 77 fL 80.7-99.1 MEAN CELL HGB (test code=MCH) 22.8 pg 27.0-34.1 MEAN CELL HGB CONCETRATION (test code=MCHC) 29.7 % 32.2-35.7 RED CELL DISTRIBUTION WIDTH (test code=RDW) 21.2 % 12.1-15.2 PLATELET COUNT (test code=PLT) 235 K/MM3 129-368 MEAN PLATELET VOLUME (test code=MPV) 9.4 fl 7.4-10.4 NEUTROPHIL % (test code=NT%) 65.8 % 43-75 IMMATURE GRANULOCYTE % (test code=IG%) 0.4 % 0.0-2.0 LYMPHOCYTE % (test code=LY%) 27.2 % 14-44 MONOCYTE % (test code=MO%) 4.0 % 4-13 EOSINOPHIL % (test code=EO%) 2.5 % 0-6 BASOPHIL % (test code=BA%) 0.1 % 0-2 NUCLEATED RBC % (test code=NRBC%) 0.0 % 0-1.0 NEUTROPHIL # (test code=NT#) 4.46 K/mm3 2.0-7.6 IMMATURE GRANULOCYTE # (test code=IG#) 0.03 x10 3/uL 0-0.03 LYMPHOCYTE # (test code=LY#) 1.85 K/mm3 1.0-3.8 MONOCYTE # (test code=MO#) 0.27 K/mm3 0.1-0.8 EOSINOPHIL # (test code=EO#) 0.17 K/mm3 0.0-0.2 BASOPHIL # (test code=BA#) 0.01 K/mm3 0.0-0.2 NUCLEATED RBC # (test code=NRBC#) 0.00 K/mm3 0.0-0.1 DIFFERENTIAL [id number] 07:29:00 Test Item Value Reference Range Comments RBC MORPHOLOGY REQUIRED (test code=RBCM) ABNORMAL ANISOCYTOSIS (test code=ANISO) MODERATE NONE MICROCYTOSIS (test code=MICR) FEW NONE OVALOCYTES (test code=OVAL) FEW NONE PLATELET ESTIMATE (test code=PLTEST) ADEQUATE ADEQUATE PLATELET MORPHOLOGY (test code=PLTMORPH) NORMAL NORMAL PROCALCITONIN (PCT)2018-09-04 06:37:00 Test Item Value Reference Range Comments PROCALCITONIN (PCT) (test < 0.05 NG/ML PROCALCITONIN (PCT) NORMAL code=PROCAL) RANGE (ADULT):<0.05 NG/ML. - a concentration < 0.5 ng/mL represents a low risk ofsevere sepsis and/or septic shock. - a concentration > 2 ng/mL represents a high risk ofsevere sepsis and/or septic shock. Nevertheless, concentrations < 0.5 ng/mL do not exclude aninfection, on account of localized infections (withoutsystemic signs) which can be associated with such lowconcentrations, or a systemic infection in its initialstages (< 6 hours). Furthermore, increased procalcitonincan occur without infection. PCT concentrations between 0.5and 2.0 ng/mL should be interpreted taking into account thepatient's history. It is recommended to retest PCT within 6-24 hours if any concentrations < 2 ng/mL are obtained. - CTA CHEST FOR [id number] 06:14:00 Patient Name: LEIGH FRYE Unit No: [id number] EXAMS: CPT CODE: [id number] [place] [address] DICTATION LOCATION: H48 HISTORY: Female, 38 years of age with acute hypoxemia, Hx of PE, high pre-test probability EXAM: CT ANGIOGRAPHY OF THE CHEST COMPARISON: Chest x-ray performed today; ultrasound of neck performed 08/28/2018 TECHNIQUE: Helical axial images were obtained from thoracic inlet to upper abdomen with nonionic IV contrast using the CT angiography protocol. Image post processing with MIP and multiplanar reconstruction were performed at the advanced workstation. One or moreof the following dose reduction techniques were used: Automated exposure control; adjustment of the mA and/or kV according to the patient size; and/or use of iterative reconstruction technique. FINDINGS: AORTA: No aneurysm or dissection. PULMONARY ARTERIES: Within normal limits size and only moderately enhanced. No obvious central or subsegmental pulmonary artery filling defect. Distal pulmonary arteries are not well visualized due to hemodilution. HEART: Heart size within normal limits. No significant pericardial effusion. MEDIASTINUM: No pathologically enlarged lymph nodes by CT criteria. 2.5 cm low-density nodule seen in the inferior right thyroid. PLEURA: No pleural effusions. LUNGS: Patchy reticulonodular and alveolar opacities are seen in right upper lobe and right middle lobe. Mild interstitial opacities are seen in both lower lobes and left upper lobe. No significant emphysema. No tracheobronchial filling defects. OTHER: Images through the upper abdomen show a gastric band device in place. No acute osseous abnormality. IMPRESSION:1. No obvious pulmonary embolism. 2. No aortic aneurysm or dissection. 3. Patchy right upper lobe and right middle lobe alveolar interstitial pneumonia. 4. Milder interstitial opacities in both lower lobes and left upper lobe could reflect additional interstitial pneumonia versus superimposed edema. 5. 2.5 cm low- density nodule right thyroid, possibly originating from the thyroid gland or parathyroid. Please see ultrasound of neck performed 08/28/2018. at 0614 Reported and signed by: Deanne Boyer MD [facility] NAME: LOEG FRYEJerrod RUBIO [address] PHYS: [place] [address] : 1980 AGE: 38 SEX: F LOC: Z.SI08 A PHONE #: [phone] EXAM DATE: 09/04/2018 STATUS: ADM IN FAX #: [phone] RAD #: D/C DT PAGE 1 Signed Report ( CONTINUED) Patient Name: LEIGH FRYE Unit No: [id number] EXAMS: CPT CODE: [id number] [place] [address] <Continued> CC: Bear Wells MD Technologist: URIEL BARTON RT(R)(CT)(MR) CTDI: DLP: Trnscrpt: 09/04/2018 ( 0614) t.SDR.[facility] NAME: LEIGH FRYE [id number] [address] PHYS: [place] [address] : 1979 AGE: 38 SEX: F LOC: Z.SI08 A PHONE #: [phone] EXAM DATE: 09/04/2018 STATUS: ADM IN FAX #: [phone] RAD #: D/C DTPAGE 2 Signed Report Patient Name: LEIGH FRYE Unit No: [id number] EXAMS:CPT CODE: [id number] [place] [address] <Continued&gt ; Orig Print D/T: S: 09/04/2018 (0838) [facility] [place] NAME: LEIGH FRYE [id number] [address] PHYS: [place] [address] : 1980 AGE: 38 SEX: F LOC: Z.SI08 A PHONE #: [phone] EXAM DATE: 09/04/2018 STATUS: ADM IN FAX #: [phone] RAD # : D/C DT PAGE 3 Signed ReportGLUCOSE BEDSIDE [id number] 06:09:00 Test Item Value Reference Range Comments GLUCOSE BEDSIDE TESTING (test code=GLUBED) 99 MG/DL 60-99 CORTISOL [id number] 06:04:00 Test Item Value Reference Range Comments CORTISOL AM (test code=CORTAM) 3.62 ug/dL 4.46-22.7 BASIC METABOLIC [id number] 05:38:00 Test Item Value Reference Range Comments SODIUM (test code=NA) 140 MMOL/L 137-145 POTASSIUM (test code=K) 4.1 MMOL/L 3.5-5.1 CHLORIDE (test code=CL) 105 MMOL/L 98-107 CARBON DIOXIDE (test code=CO2) 30 MMOL/L 22-30 ANION GAP (test code=GAP) 9 MMOL/L 14-24 GLUCOSE (test code=GLU) 121 MG/DL 74-106 BLOOD UREA NITROGEN (test 14 MG/DL 7-17 code=BUN) GLOMERULAR FILTRATION RATE > 60 Reporting units: ml/min/1.73 (test code=GFR) m2 (Modified MDRD Formula)Reference Range: > or=60 ml/min/1.73 m2 CREATININE (test code=CREAT) 0.60 MG/DL 0.52-1.04 CALCIUM (test code=CA) 9.0 MG/DL 8.4-10.2 HEPATIC FUNCTION [id number] 05:38:00 Test Item Value Reference Range Comments TOTAL PROTEIN (test code=PROT) 6.4 G/DL 6.3-8.2 ALBUMIN (test code=ALB) 3.0 G/DL 3.5-5.0 BILIRUBIN TOTAL (test code=BILT) 0.1 MG/DL 0.2-1.3 BILIRUBIN DIRECT (test code=BILD) 0.0 MG/DL 0.0-0.3 SGOT/AST (test code=AST) 33 UNITS/L 14-36 SGPT/ALT (test code=ALT) 34 UNITS/L 9-52 ALKALINE PHOSPHATASE (test code=ALKP) 114 UNITS/L 38-126 [id number] 05:38:00 Test Item Value Reference Range Comments MAGNESIUM (test code=MAG) 2.0 MG/DL 1.6-2.3 [id number] 05:38:00 Test Item Value Reference Range Comments TROPONIN-I (test code=TROPI) < 0.012 NG/ML 0.012-0.033 LACTIC [id number] 05:33:00 Test Item Value Reference Range Comments LACTIC ACID (test code=LACT) 1.2 MMOL/L 0.7-2.1 BASIC METABOLIC [id number] 05:33:00 Test Item Value Reference Range Comments SODIUM (test code=NA) 140 MMOL/L 137-145 POTASSIUM (test code=K) 4.1 MMOL/L 3.5-5.1 CHLORIDE (test code=CL) 105 MMOL/L 98-107 CARBON DIOXIDE (test code=CO2) 30 MMOL/L 22-30 ANION GAP (test code=GAP) 9 MMOL/L 14-24 GLUCOSE (test code=GLU) 121 MG/DL 74-106 BLOOD UREA NITROGEN (test 14 MG/DL 7-17 code=BUN) GLOMERULAR FILTRATION RATE > 60 Reporting units: ml/min/1.73 (test code=GFR) m2 (Modified MDRD Formula)Reference Range: > or=60 ml/min/1.73 m2 CREATININE (test code=CREAT) 0.60 MG/DL 0.52-1.04 CALCIUM (test code=CA) 9.0 MG/DL 8.4-10.2 HEPATIC FUNCTION [id number] 05:33:00 Test Item Value Reference Range Comments TOTAL PROTEIN (test code=PROT) 6.4 G/DL 6.3-8.2 ALBUMIN (test code=ALB) 3.0 G/DL 3.5-5.0 BILIRUBIN TOTAL (test code=BILT) 0.1 MG/DL 0.2-1.3 BILIRUBIN DIRECT (test code=BILD) 0.0 MG/DL 0.0-0.3 SGOT/AST (test code=AST) 33 UNITS/L 14-36 SGPT/ALT (test code=ALT) 34 UNITS/L 9-52 ALKALINE PHOSPHATASE (test code=ALKP) 114 UNITS/L 38-126 [id number] 05:33:00 Test Item Value Reference Range Comments MAGNESIUM (test code=MAG) 2.0 MG/DL 1.6-2.3 [id number] 05:33:00 Test Item Value Reference Range Comments TROPONIN-I (test code=TROPI) NG/ML 0.0-0.045 PROTHROMBIN [id number] 05:27:00 Test Item Value Reference Range Comments PROTHROMBIN TIME PATIENT (test 10.3 SECONDS 9.6-11.6 code=PTP) INTERNATIONAL NORMAL RATIO 1.0 0.8-1.1 The INR is to be used only (test code=INR) for monitoring oral anticoagulanttherapy. INDICATION INR VALUE 1. Prophylaxis, deep venous thrombosis, including high risk surgery. 2.0 - 3.0 2. Prophylaxis, deep venous thrombosis, hip surgery, treatment for deep venous thrombosis or pulmonary prevention of systemic embolism in patients with valvular heart disease, atrial fibrillation, tissue heart valve, or acute myocardial infarction. 2.0 - 3.0 3. Mechanical prosthesis heart valves, recurrent systemic embolism. 3.0 - 4.5 PTT [id number] 05:27:00 Test Item Value Reference Range Comments PTT ACTIVATED (test code=APTT) 27.5 SECONDS 22.0-33.0 CBC W/AUTO [id number] 05:10:00 Test Item Value Reference Range Comments WHITE BLOOD CELL (test code=WBC) 6.8 K/MM3 3.8-9.8 RED BLOOD CELL (test code=RBC) 3.51 M/MM3 3.58-4.97 HEMOGLOBIN (test code=HGB) 8.0 G/DL 11.2-14.9 HEMATOCRIT (test code=HCT) 26.9 % 33.2-43.5 MEAN CELL VOLUME (test code=MCV) 77 fL 80.7-99.1 MEAN CELL HGB (test code=MCH) 22.8 pg 27.0-34.1 MEAN CELL HGB CONCETRATION (test code=MCHC) 29.7 % 32.2-35.7 RED CELL DISTRIBUTION WIDTH (test code=RDW) 21.2 % 12.1-15.2 PLATELET COUNT (test code=PLT) 235 K/MM3 129-368 MEAN PLATELET VOLUME (test code=MPV) 9.4 fl 7.4-10.4 NEUTROPHIL % (test code=NT%) 65.8 % 43-75 IMMATURE GRANULOCYTE % (test code=IG%) 0.4 % 0.0-2.0 LYMPHOCYTE % (test code=LY%) 27.2 % 14-44 MONOCYTE % (test code=MO%) 4.0 % 4-13 EOSINOPHIL % (test code=EO%) 2.5 % 0-6 BASOPHIL % (test code=BA%) 0.1 % 0-2 NUCLEATED RBC % (test code=NRBC%) 0.0 % 0-1.0 NEUTROPHIL # (test code=NT#) 4.46 K/mm3 2.0-7.6 IMMATURE GRANULOCYTE # (test code=IG#) 0.03 x10 3/uL 0-0.03 LYMPHOCYTE # (test code=LY#) 1.85 K/mm3 1.0-3.8 MONOCYTE # (test code=MO#) 0.27 K/mm3 0.1-0.8 EOSINOPHIL # (test code=EO#) 0.17 K/mm3 0.0-0.2 BASOPHIL # (test code=BA#) 0.01 K/mm3 0.0-0.2 NUCLEATED RBC # (test code=NRBC#) 0.00 K/mm3 0.0-0.1 DIFFERENTIAL [id number] 05:10:00 Test Item Value Reference Range Comments RBC MORPHOLOGY REQUIRED (test code=RBCM) PLATELET ESTIMATE (test code=PLTEST) ADEQUATE PLATELET MORPHOLOGY (test code=PLTMORPH) NORMAL CBC W/AUTO [id number] 05:10:00 Test Item Value Reference Range Comments WHITE BLOOD CELL (test code=WBC) 6.8 K/MM3 3.8-9.8 RED BLOOD CELL (test code=RBC) 3.51 M/MM3 3.58-4.97 HEMOGLOBIN (test code=HGB) 8.0 G/DL 11.2-14.9 HEMATOCRIT (test code=HCT) 26.9 % 33.2-43.5 MEAN CELL VOLUME (test code=MCV) 77 fL 80.7-99.1 MEAN CELL HGB (test code=MCH) 22.8 pg 27.0-34.1 MEAN CELL HGB CONCETRATION (test code=MCHC) 29.7 % 32.2-35.7 RED CELL DISTRIBUTION WIDTH (test code=RDW) 21.2 % 12.1-15.2 PLATELET COUNT (test code=PLT) 235 K/MM3 129-368 MEAN PLATELET VOLUME (test code=MPV) 9.4 fl 7.4-10.4 NEUTROPHIL % (test code=NT%) 65.8 % 43-75 IMMATURE GRANULOCYTE % (test code=IG%) 0.4 % 0.0-2.0 LYMPHOCYTE % (test code=LY%) 27.2 % 14-44 MONOCYTE % (test code=MO%) 4.0 % 4-13 EOSINOPHIL % (test code=EO%) 2.5 % 0-6 BASOPHIL % (test code=BA%) 0.1 % 0-2 NUCLEATED RBC % (test code=NRBC%) 0.0 % 0-1.0 NEUTROPHIL # (test code=NT#) 4.46 K/mm3 2.0-7.6 IMMATURE GRANULOCYTE # (test code=IG#) 0.03 x10 3/uL 0-0.03 LYMPHOCYTE # (test code=LY#) 1.85 K/mm3 1.0-3.8 MONOCYTE # (test code=MO#) 0.27 K/mm3 0.1-0.8 EOSINOPHIL # (test code=EO#) 0.17 K/mm3 0.0-0.2 BASOPHIL # (test code=BA#) 0.01 K/mm3 0.0-0.2 NUCLEATED RBC # (test code=NRBC#) 0.00 K/mm3 0.0-0.1 DIFFERENTIAL [id number] 05:10:00 Test Item Value Reference Range Comments RBC MORPHOLOGY REQUIRED (test code=RBCM) PLATELET ESTIMATE (test code=PLTEST) ADEQUATE PLATELET MORPHOLOGY (test code=PLTMORPH) NORMAL - XR CHEST [id number] 04:59:00 Patient Name: LEIGH FRYE Unit No: [id number] EXAMS: CPT CODE: [id number] XR CHEST 1V 39982 EXAM: - XR CHEST 1V Location code:C3 HISTORY: RESP FAILURE COMPARISON: None available time of interpretation. FINDINGS: 2 AP views of the chest are provided. Heart size and vascularity are within normallimits. Patchy consolidation of the right lung base is seen. The left lung is clear. There is no pneumothorax. IMPRESSION: 1. Patchy consolidation at theright lung base concerning for pneumonia is seen. at 0459 Reported and signed by: Cabrera Ngo MD CC: Bear Wells MD Technologist: Francesco Covarrubias, RT(R) Transcrpt Date/Tm/Trnsp: 09/04/2018 (0459) [email or web address] Orig Print D/T: S: 09/04/2018 (0502) [facility] NAME: LEIGH FRYE [address] [address] PHYS: [place] [address] : 1980 AGE: 38 SEX: F LOC: Z.531 A PHONE #: [phone] EXAM DATE: 09/04/2018 STATUS: ADM IN FAX #: [phone] RADIOLOGY NO: PAGE 1 Signed ReportPOC ARTERIAL BLOOD [id number] 04:48:00 Test Item Value Reference Range Comments POC ARTERIAL BLOOD GAS PH (test code=POCPHA) 7.392 7.35-7.45 POC ARTERIAL BLOOD GAS PCO2 (test 46.8 mmHg 35.0-45.0 code=IGAGXA0V) POC ARTERIAL BLOOD GAS PO2 (test 95 75.0-100.0 code=LGJTY3Z) POC HCO3 ARTERIAL (test code=MHGUTW5K) 28.4 MMOL/L 20.0-26.0 POC BASE EXCESS (test code=POCBEA) 4.0 MMOL/L -3.0-3.0 POC O2 SATURATION (test code=POCO2S) 97 % 92.0-98.5 FIO2 (test code=FIO2A) 100 % 21-100 ABG DELIVERY (test code=KIRILL) NonRb Mask ABG SITE (test code=SITEA) L Brachial ALLENS TEST (test code=ALLENS) N/A CHECK MD Ntfd/RBV~ CBC W/AUTO [id number] 12:05:00 Test Item Value Reference Range Comments WHITE BLOOD CELL (test code=WBC) 6.8 K/MM3 3.8-9.8 RED BLOOD CELL (test code=RBC) 3.33 M/MM3 3.58-4.97 HEMOGLOBIN (test code=HGB) 7.5 G/DL 11.2-14.9 HEMATOCRIT (test code=HCT) 25.5 % 33.2-43.5 MEAN CELL VOLUME (test code=MCV) 77 fL 80.7-99.1 MEAN CELL HGB (test code=MCH) 22.5 pg 27.0-34.1 MEAN CELL HGB CONCETRATION (test code=MCHC) 29.4 % 32.2-35.7 RED CELL DISTRIBUTION WIDTH (test code=RDW) 20.5 % 12.1-15.2 PLATELET COUNT (test code=PLT) 245 K/MM3 129-368 MEAN PLATELET VOLUME (test code=MPV) 9.7 fl 7.4-10.4 NEUTROPHIL % (test code=NT%) 57.8 % 43-75 IMMATURE GRANULOCYTE % (test code=IG%) 0.6 % 0.0-2.0 LYMPHOCYTE % (test code=LY%) 33.8 % 14-44 MONOCYTE % (test code=MO%) 4.8 % 4-13 EOSINOPHIL % (test code=EO%) 2.9 % 0-6 BASOPHIL % (test code=BA%) 0.1 % 0-2 NUCLEATED RBC % (test code=NRBC%) 0.0 % 0-1.0 NEUTROPHIL # (test code=NT#) 3.95 K/mm3 2.0-7.6 IMMATURE GRANULOCYTE # (test code=IG#) 0.04 x10 3/uL 0-0.03 LYMPHOCYTE # (test code=LY#) 2.31 K/mm3 1.0-3.8 MONOCYTE # (test code=MO#) 0.33 K/mm3 0.1-0.8 EOSINOPHIL # (test code=EO#) 0.20 K/mm3 0.0-0.2 BASOPHIL # (test code=BA#) 0.01 K/mm3 0.0-0.2 NUCLEATED RBC # (test code=NRBC#) 0.00 K/mm3 0.0-0.1 DIFFERENTIAL [id number] 12:05:00 Test Item Value Reference Range Comments RBC MORPHOLOGY REQUIRED (test code=RBCM) ABNORMAL ANISOCYTOSIS (test code=ANISO) SLIGHT NONE ELLIPTOCYTES (test code=ELL) FEW NONE OVALOCYTES (test code=OVAL) MODERATE NONE PLATELET ESTIMATE (test code=PLTEST) ADEQ ADEQUATE PLATELET MORPHOLOGY (test code=PLTMORPH) NORMAL NORMAL CORTISOL [id number] 07:11:00 Test Item Value Reference Range Comments CORTISOL AM (test code=CORTAM) 1.20 ug/dL 4.46-22.7 CORTISOL [id number] 07:11:00 Test Item Value Reference Range Comments CORTISOL PM (test code=CORTPM) 1.20 mcg/dL 3.09-16.66 BASIC METABOLIC [id number] 06:39:00 Test Item Value Reference Range Comments SODIUM (test code=NA) 141 MMOL/L 137-145 POTASSIUM (test code=K) 4.1 MMOL/L 3.5-5.1 CHLORIDE (test code=CL) 107 MMOL/L 98-107 CARBON DIOXIDE (test code=CO2) 29 MMOL/L 22-30 GLUCOSE (test code=GLU) 99 MG/DL 74-106 BLOOD UREA NITROGEN (test 14 MG/DL 7-17 code=BUN) GLOMERULAR FILTRATION RATE > 60 Reporting units: ml/min/1.73 (test code=GFR) m2 (Modified MDRD Formula)Reference Range: > or=60 ml/min/1.73 m2 CREATININE (test code=CREAT) 0.60 MG/DL 0.52-1.04 CALCIUM (test code=CA) 9.1 MG/DL 8.4-10.2 CBC W/AUTO [id number] 06:30:00 Test Item Value Reference Range Comments WHITE BLOOD CELL (test code=WBC) 6.8 K/MM3 3.8-9.8 RED BLOOD CELL (test code=RBC) 3.33 M/MM3 3.58-4.97 HEMOGLOBIN (test code=HGB) 7.5 G/DL 11.2-14.9 HEMATOCRIT (test code=HCT) 25.5 % 33.2-43.5 MEAN CELL VOLUME (test code=MCV) 77 fL 80.7-99.1 MEAN CELL HGB (test code=MCH) 22.5 pg 27.0-34.1 MEAN CELL HGB CONCETRATION (test code=MCHC) 29.4 % 32.2-35.7 RED CELL DISTRIBUTION WIDTH (test code=RDW) 20.5 % 12.1-15.2 PLATELET COUNT (test code=PLT) 245 K/MM3 129-368 MEAN PLATELET VOLUME (test code=MPV) 9.7 fl 7.4-10.4 NEUTROPHIL % (test code=NT%) 57.8 % 43-75 IMMATURE GRANULOCYTE % (test code=IG%) 0.6 % 0.0-2.0 LYMPHOCYTE % (test code=LY%) 33.8 % 14-44 MONOCYTE % (test code=MO%) 4.8 % 4-13 EOSINOPHIL % (test code=EO%) 2.9 % 0-6 BASOPHIL % (test code=BA%) 0.1 % 0-2 NUCLEATED RBC % (test code=NRBC%) 0.0 % 0-1.0 NEUTROPHIL # (test code=NT#) 3.95 K/mm3 2.0-7.6 IMMATURE GRANULOCYTE # (test code=IG#) 0.04 x10 3/uL 0-0.03 LYMPHOCYTE # (test code=LY#) 2.31 K/mm3 1.0-3.8 MONOCYTE # (test code=MO#) 0.33 K/mm3 0.1-0.8 EOSINOPHIL # (test code=EO#) 0.20 K/mm3 0.0-0.2 BASOPHIL # (test code=BA#) 0.01 K/mm3 0.0-0.2 NUCLEATED RBC # (test code=NRBC#) 0.00 K/mm3 0.0-0.1 DIFFERENTIAL [id number] 06:30:00 Test Item Value Reference Range Comments RBC MORPHOLOGY REQUIRED (test code=RBCM) PLATELET ESTIMATE (test code=PLTEST) ADEQUATE PLATELET MORPHOLOGY (test code=PLTMORPH) NORMAL CBC W/AUTO [id number] 06:30:00 Test Item Value Reference Range Comments WHITE BLOOD CELL (test code=WBC) 6.8 K/MM3 3.8-9.8 RED BLOOD CELL (test code=RBC) 3.33 M/MM3 3.58-4.97 HEMOGLOBIN (test code=HGB) 7.5 G/DL 11.2-14.9 HEMATOCRIT (test code=HCT) 25.5 % 33.2-43.5 MEAN CELL VOLUME (test code=MCV) 77 fL 80.7-99.1 MEAN CELL HGB (test code=MCH) 22.5 pg 27.0-34.1 MEAN CELL HGB CONCETRATION (test code=MCHC) 29.4 % 32.2-35.7 RED CELL DISTRIBUTION WIDTH (test code=RDW) 20.5 % 12.1-15.2 PLATELET COUNT (test code=PLT) 245 K/MM3 129-368 MEAN PLATELET VOLUME (test code=MPV) 9.7 fl 7.4-10.4 NEUTROPHIL % (test code=NT%) 57.8 % 43-75 IMMATURE GRANULOCYTE % (test code=IG%) 0.6 % 0.0-2.0 LYMPHOCYTE % (test code=LY%) 33.8 % 14-44 MONOCYTE % (test code=MO%) 4.8 % 4-13 EOSINOPHIL % (test code=EO%) 2.9 % 0-6 BASOPHIL % (test code=BA%) 0.1 % 0-2 NUCLEATED RBC % (test code=NRBC%) 0.0 % 0-1.0 NEUTROPHIL # (test code=NT#) 3.95 K/mm3 2.0-7.6 IMMATURE GRANULOCYTE # (test code=IG#) 0.04 x10 3/uL 0-0.03 LYMPHOCYTE # (test code=LY#) 2.31 K/mm3 1.0-3.8 MONOCYTE # (test code=MO#) 0.33 K/mm3 0.1-0.8 EOSINOPHIL # (test code=EO#) 0.20 K/mm3 0.0-0.2 BASOPHIL # (test code=BA#) 0.01 K/mm3 0.0-0.2 NUCLEATED RBC # (test code=NRBC#) 0.00 K/mm3 0.0-0.1 DIFFERENTIAL [id number] 06:30:00 Test Item Value Reference Range Comments RBC MORPHOLOGY REQUIRED (test code=RBCM) PLATELET ESTIMATE (test code=PLTEST) ADEQUATE PLATELET MORPHOLOGY (test code=PLTMORPH) NORMAL UA SPECIFIC [id number] 23:35:00 Test Item Value Reference Range Comments UA SPECIFIC GRAVITY (test code=SGU) 1.025 1.003-1.030 [id number] 23:22:00 Test Item Value Reference Range Comments CORTISOL (test code=CORTR) 1.65 ug/dL 1.7-22.7 [id number] 22:53:00 Test Item Value Reference Range Comments SODIUM (test code=NA) 143 MMOL/L 137-145 [id number] 17:47:00 Test Item Value Reference Range Comments CORTISOL (test code=CORTR) 5.32 ug/dL 1.7-22.7 [id number] 17:06:00 Test Item Value Reference Range Comments SODIUM (test code=NA) 144 MMOL/L 137-145 UR CATECHOLAMINE [id number] 12:47:00 Test Item Value Reference Range Comments UR EPINEPHRINE (test < 1 ug/L Undefined This test was developed and its code=EPINU) performance characteristicsdetermined by [facility]. It has not been cleared orapproved by the Food and Drug Administration. UR EPINEPHRINE 24H <4 ug/24 hr 0-20 (test code=EPINU24) UR NOREPINEPHRINE (test 34 ug/L Undefined This test was developed and its code=NOREPU) performance characteristicsdetermined by [facility]. It has not been cleared orapproved by the Food and Drug Administration. UR TOTAL 131 ug/24 hr 0-135 EPI/NOREPINEPHRIN (test code=EPINOREPIU) UR DOPAMINE (test 110 ug/L Undefined This test was developed and its code=DOPAU) performance characteristicsdetermined by [facility]. It has not been cleared orapproved by the Food and Drug Administration. UR DOPAMINE 24H (test 424 ug/24 hr 0-510 Performed At: [facility] code=DOPAU24) [address] [id number] Peterson MD Ph:[phone] VENOUS THROMBOPHILIA [id number] 07:49:00 Test Item Value Reference Range Comments MISC COAG (test Venous Thrombosis Profile Homocysteine code=MISCCOAG) 12.3 umol/L Homocysteine levels in patients >60 years increase 1-2umol/L.Reference Range:5.0 - 15.0 Factor VIII Activity 302 High % FVIII activity can increase in a variety of clinicalsituations including normal , in samples drawn frompatients (particularly children) who are visibly stressed atthe time of phlebotomy, as acute phase reactants, or inresponse to certain drug therapies such as DDAVP.Persistently elevated FVIII activity is a risk factor forvenous thrombosis as well as recurrence of venousthrombosis. Risk is graded and increases with the degree ofelevation. Although elevated FVIII activity has beenidentified to cluster within families, a genetic basis forthe elevation has not yet been elucidated (Br J Haematol.2012; 157:653-663).Reference Range:57 - 163 Antithrombin Activity, Cozzcz583 % Direct oral anticoagulants such as rivaroxaban, apixaban andedoxaban will lead to spuriously elevated antithrombinactivity levels possibly masking a deficiency.Reference Range:7 months and older: 75 - 135 Prt C Activity (Chromogenic) 165 % Reference Range:17 years and older: 73 - 180Protein S Antigen, Free 110 % Reference Range:7 months and older: 57 - 157This test was developed and its performance characteristicsdetermined by [facility]. It has not been cleared or approvedby the Food and Drug Administration. APTT 23.1 sec This test has not been validated for monitoringunfractionated heparin therapy. aPTT-based therapeuticranges for unfractionated heparin therapy have not beenestablished. Consider ordering Heparin anti-Xa(unfractionated).Reference Range:18 years and older: 22.9 - 30.2APTT 1:1 NPTesting Not Indicated Not indicatedAPTT 1:1 SalineTesting Not Indicated Not indicatedLAC Interpretation A lupus anticoagulant is not detected. All antiphospholipidantibodies evaluated are normal. As antibody titers mayfluctuate with time, repeat testing may be indicated.Please contact [employer] if furtherclarification is needed. Act. Prt C Resist w/FV Defic.1.7 Low ratio A low activated protein C resistance (APCR) is a risk factorfor venous thrombosis and is a screen for the Factor VLeiden mutation. Consider molecular analysis for thismutation. Other causes for abnormal APCR are uncommon andinclude other rare mutations in the Factor V molecule, and certain drug therapies, including thalidomidetherapy, presence of a lupus anticoagulant, increased FactorVIII levels, and autoantibodies against activated protein C.Reference Range:2.2 - 3.5 DRVVT Screen Seconds 38.2 sec Reference Range:<=47.0DRVVT Confirm SecondsTesting Not Indicated Not indicatedDRVVT RatioTesting Not Indicated Not indicated Hexagonal Phospholipid Neutral8 sec This value is NEGATIVE.This is a qualitative assay and is therefore reported aspositive for lupus anticoagulant or negative. Thequantitative value is provided as an aid in diagnosis.Reference Range:0 - 11 Anticardiolipin Ab, IgG <10 GPLReference Range:Negative: <15Indeterminate: 15 - 20Low to medium positive: >20 - 80High positive: >80Anticardiolipin Ab, IgM <10 MPL Reference Range:Negative: <13Indeterminate: 13 - 20Low to medium positive: >20 - 80High positive: >80 Beta-2 Glycoprotein I, IgG <10 SGU The reference interval reflects a 3SD or 99th percentileinterval, which is thought to represent a potentiallyclinically significant result in accordance with theInternational Consensus Statement on the classificationcriteria for definitive antiphospholipid syndrome (APS). JThromb Ukcw3199;4:295-306.Reference Range:Negative: <21Beta-2 Glycoprotein I, IgM <10 SMU The reference interval reflects a 3SD or 99th percentileinterval, which is thought to represent a potentiallyclinically significant result in accordance with theInternational Consensus Statement on the classificationcriteria for definitive antiphospholipid syndrome (APS). JThromb Huoi8127;4:295-306.Reference Range:Negative: <33Beta-2 Glycoprotein I, IgA <10 DERIAN The reference interval reflects a 3SD or 99th percentileinterval.Reference Range:Negative: <26 Factor II Gene Mutation Result G-G (Normal-Normal)No prothrombin [id number] mutation present.Interpretation: While the patient does not possess this risk factor, otherthrombotic risk factors may be detected through systematicclinical laboratory analysis.Methodology: Patient DNA was evaluated for the factor II gene mutationat nucleotide using PCR amplification followed byrestriction analysis and gel electrophoresis.Comments: Simultaneous Risks: If a patient possesses two or morecongenital or acquired thrombophilic risk factors, the riskof thrombosis may rise to more than the sum of the riskratios for the individual risk factors. For instance, acombination of the prothrombin J22097G mutation and thefactor V Leiden mutation may confer an increase inthrombotic risk in the range of 20-30 fold.Recommendations for Genetic Counseling: The prothrombingene mutation is an inherited characteristic. If themutation is present, we recommend that the patient andtheir family consider genetic counseling to obtainadditional information on inheritance and to identify otherfamily members at risk.Testing Characteristics: Genetic testing providesexceptionally high sensitivity and specificity. Inaccurateresults are limited to rare polymorphisms in primer bindingsites and to misidentification of specimens by collectorsor laboratory personnel. This assay detects only theprothrombin O48823L mutation and does not detect othergenetic abnormalities.This test was developed and its performance characteristicsdetermined by [facility]. It has not been cleared or approvedby the Food and Drug Administration.References: Presley K, et al. Br J of Haem. 1997;98:907.Sherrie AM, et al. Br J of Haem. 1997;98:353. Xi Mol.Diagn. 2001;6(3):201.Rodri Richardson, et al. Thromb Haemost. 2001;86:809-16.Jayda M, et al. Thromb Haemost. 1999;82:1583. Factor V LeidenFactor V Leiden Result G-A (Normal-Mutant)Positive - Heterozygous for factor V Leiden mutation.Interpretation: The factor V Leiden mutation is present on one copy of thepatient's factor V gene. Presence of the heterozygousfactor V Leiden mutation confers an approximate 5-foldincrease in the risk of venous thrombosis.Methodology: Patient DNA was evaluated for the factor V Leiden mutationat nucleotide 1691 using allele specific PCR technologyfollowed by gel electrophoresis.Comments: Simultaneous Risks: If a patient possesses two or morecongenital or acquired thrombophilic risk factors, the riskof thrombosis may rise to more than the sum of the riskratios for the individual risk factors. For instance, acombination of the prothrombin Y11611L mutation and thefactor V Leiden mutation may confer an increase inthrombotic risk in the range of 20-30 fold.Recommendations for Genetic Counseling: The factor V Leidenmutation is an inherited characteristic. If the mutation ispresent, we recommend that the patient and their familyconsider genetic counseling to obtain additionalinformation on inheritance and to identify other familymembers at risk.Testing Characteristics: Genetic testing providesexceptionally high sensitivity and specificity. Inaccurateresults are limited to rare polymorphisms in primer bindingsites and to misidentification of specimens by collectorsor laboratory personnel. This assay detects only the factorV Leiden mutation and does not detect other geneticabnormalities.This test was developed and its performance characteristicsdetermined by [facility]. It has not been cleared or approvedby the Food and Drug Administration. VENOUS THROMBOSIS PROFILETEST CODE: [id number]: THREE TUBES, 2 ML PPP EACH, FROZEN 2 MLSERUM FROZEN 5 ML EDTA WHOLE BLOOD, ROOM TEMP.UR METANEPHRINES [id number] 07:36:00 Test Item Value Reference Range Comments UR METANEPHRINES 24HR 81 mcg/24h 35-460 (test code=MET24T) UR METANEPHRINES (TOTAL) 23 ug/L Undefined This test was developed and its (test code=METTU) performance characteristicsdetermined by [facility]. It has not been cleared orapproved by the Food and Drug Administration. NORMETANEPHRINE (test 102 ug/L code=NORMETT) NORMETANEPHRINE 24 HR 357 mcg/24h 82-500 (test code=NORMETUR) UR HYDROXYINDOLEACETIC ACID [id number] 07:36:00 Test Item Value Reference Range Comments UR HYDROXYINDOLEACETIC ACID QT 3.9 mg/24 hr 0.0-14.9 Performed At: (test code=5HIAAU) [address] [id number] Peterson MD Ph:[phone] UR VOLUME (test code=VOL) 3500 ML 800-1800 ADRENOCORTICOTROPIC [id number] 07:22:00 Test Item Value Reference Range Comments ADRENOCORTICOTROPIC HORMONE (test 14.7 pg/mL 7.2-63.3 ACTH reference interval code=ACTH) for samples collected between 7 and10 AM.Performed At: [address] [id number] Etienne Farfan MD Ph:[phone] UR METANEPHRINES [id number] 07:22:00 Test Item Value Reference Range Comments UR METANEPHRINES 24HR mcg/24h 35-460 (test code=MET24T) UR METANEPHRINES (TOTAL) 23 ug/L Undefined This test was developed and its (test code=METTU) performance characteristicsdetermined by [facility]. It has not been cleared orapproved by the Food and Drug Administration. NORMETANEPHRINE (test ug/L code=NORMETT) NORMETANEPHRINE 24 HR mcg/24h 82-500 (test code=NORMETUR) UR HYDROXYINDOLEACETIC ACID [id number] 07:22:00 Test Item Value Reference Range Comments UR HYDROXYINDOLEACETIC ACID QT 3.9 mg/24 hr 0.0-14.9 Performed At: (test code=5HIAAU) [address] [id number] Peterson MD Ph:[phone] UR VOLUME (test code=VOL) 3500 ML 800-1800 [id number] 07:12:00 Test Item Value Reference Range Comments CORTISOL (test code=CORTR) 3.43 ug/dL 1.7-22.7 UA SPECIFIC [id number] 06:36:00 Test Item Value Reference Range Comments UA SPECIFIC GRAVITY (test code=SGU) 1.010 1.003-1.030 BASIC METABOLIC [id number] 06:03:00 Test Item Value Reference Range Comments SODIUM (test code=NA) 142 MMOL/L 137-145 POTASSIUM (test code=K) 3.9 MMOL/L 3.5-5.1 CHLORIDE (test code=CL) 107 MMOL/L 98-107 CARBON DIOXIDE (test code=CO2) 29 MMOL/L 22-30 GLUCOSE (test code=GLU) 129 MG/DL 74-106 BLOOD UREA NITROGEN (test 12 MG/DL 7-17 code=BUN) GLOMERULAR FILTRATION RATE > 60 Reporting units: ml/min/1.73 (test code=GFR) m2 (Modified MDRD Formula)Reference Range: > or=60 ml/min/1.73 m2 CREATININE (test code=CREAT) 0.70 MG/DL 0.52-1.04 CALCIUM (test code=CA) 9.1 MG/DL 8.4-10.2 CBC W/AUTO [id number] 05:41:00 Test Item Value Reference Range Comments WHITE BLOOD CELL (test code=WBC) 8.3 K/MM3 3.8-9.8 RED BLOOD CELL (test code=RBC) 3.43 M/MM3 3.58-4.97 HEMOGLOBIN (test code=HGB) 7.7 G/DL 11.2-14.9 HEMATOCRIT (test code=HCT) 26.2 % 33.2-43.5 MEAN CELL VOLUME (test code=MCV) 76 fL 80.7-99.1 MEAN CELL HGB (test code=MCH) 22.4 pg 27.0-34.1 MEAN CELL HGB CONCETRATION (test code=MCHC) 29.4 % 32.2-35.7 RED CELL DISTRIBUTION WIDTH (test code=RDW) 20.1 % 12.1-15.2 PLATELET COUNT (test code=PLT) 270 K/MM3 129-368 MEAN PLATELET VOLUME (test code=MPV) 9.5 fl 7.4-10.4 NEUTROPHIL % (test code=NT%) 53.4 % 43-75 IMMATURE GRANULOCYTE % (test code=IG%) 1.0 % 0.0-2.0 LYMPHOCYTE % (test code=LY%) 37.2 % 14-44 MONOCYTE % (test code=MO%) 6.2 % 4-13 EOSINOPHIL % (test code=EO%) 2.0 % 0-6 BASOPHIL % (test code=BA%) 0.2 % 0-2 NUCLEATED RBC % (test code=NRBC%) 0.0 % 0-1.0 NEUTROPHIL # (test code=NT#) 4.44 K/mm3 2.0-7.6 IMMATURE GRANULOCYTE # (test code=IG#) 0.08 x10 3/uL 0-0.03 LYMPHOCYTE # (test code=LY#) 3.10 K/mm3 1.0-3.8 MONOCYTE # (test code=MO#) 0.52 K/mm3 0.1-0.8 EOSINOPHIL # (test code=EO#) 0.17 K/mm3 0.0-0.2 BASOPHIL # (test code=BA#) 0.02 K/mm3 0.0-0.2 NUCLEATED RBC # (test code=NRBC#) 0.00 K/mm3 0.0-0.1 DIFFERENTIAL [id number] 05:41:00 Test Item Value Reference Range Comments RBC MORPHOLOGY REQUIRED (test code=RBCM) PLATELET ESTIMATE (test code=PLTEST) ADEQUATE PLATELET MORPHOLOGY (test code=PLTMORPH) NORMAL CBC W/AUTO [id number] 05:41:00 Test Item Value Reference Range Comments WHITE BLOOD CELL (test code=WBC) 8.3 K/MM3 3.8-9.8 RED BLOOD CELL (test code=RBC) 3.43 M/MM3 3.58-4.97 HEMOGLOBIN (test code=HGB) 7.7 G/DL 11.2-14.9 HEMATOCRIT (test code=HCT) 26.2 % 33.2-43.5 MEAN CELL VOLUME (test code=MCV) 76 fL 80.7-99.1 MEAN CELL HGB (test code=MCH) 22.4 pg 27.0-34.1 MEAN CELL HGB CONCETRATION (test code=MCHC) 29.4 % 32.2-35.7 RED CELL DISTRIBUTION WIDTH (test code=RDW) 20.1 % 12.1-15.2 PLATELET COUNT (test code=PLT) 270 K/MM3 129-368 MEAN PLATELET VOLUME (test code=MPV) 9.5 fl 7.4-10.4 NEUTROPHIL % (test code=NT%) 53.4 % 43-75 IMMATURE GRANULOCYTE % (test code=IG%) 1.0 % 0.0-2.0 LYMPHOCYTE % (test code=LY%) 37.2 % 14-44 MONOCYTE % (test code=MO%) 6.2 % 4-13 EOSINOPHIL % (test code=EO%) 2.0 % 0-6 BASOPHIL % (test code=BA%) 0.2 % 0-2 NUCLEATED RBC % (test code=NRBC%) 0.0 % 0-1.0 NEUTROPHIL # (test code=NT#) 4.44 K/mm3 2.0-7.6 IMMATURE GRANULOCYTE # (test code=IG#) 0.08 x10 3/uL 0-0.03 LYMPHOCYTE # (test code=LY#) 3.10 K/mm3 1.0-3.8 MONOCYTE # (test code=MO#) 0.52 K/mm3 0.1-0.8 EOSINOPHIL # (test code=EO#) 0.17 K/mm3 0.0-0.2 BASOPHIL # (test code=BA#) 0.02 K/mm3 0.0-0.2 NUCLEATED RBC # (test code=NRBC#) 0.00 K/mm3 0.0-0.1 DIFFERENTIAL [id number] 05:41:00 Test Item Value Reference Range Comments RBC MORPHOLOGY REQUIRED (test code=RBCM) PLATELET ESTIMATE (test code=PLTEST) ADEQUATE PLATELET MORPHOLOGY (test code=PLTMORPH) NORMAL UA SPECIFIC [id number] 22:47:00 Test Item Value Reference Range Comments UA SPECIFIC GRAVITY (test code=SGU) 1.015 1.003-1.030 [id number] 21:35:00 Test Item Value Reference Range Comments CORTISOL (test code=CORTR) 4.12 ug/dL 1.7-22.7 [id number] 20:56:00 Test Item Value Reference Range Comments SODIUM (test code=NA) 141 MMOL/L 137-145 PITUITARY [id number] 14:40:00 RUN DATE: 09/01/18 [facility] PAGE 1 RUN TIME: 1440 Specimen Inquiry RUN USER: INTERFACE PATIENT: LEIGH FRYE LOC: DELL U #: [id number] AGE/SX: 38/F ROOM: [facility] RE08/25/18REG DR: Jani Mckoy MD : 80 BED: A DIS: STATUS: ADM IN TLOC: SPEC # : [id number]:TREVINO:[id number] RECD: 08/30/18 STATUS: BILL REQ #: [id number] LAST: 08/30/18 [facility] DR: Jani Mckoy MD ENTERED: 08/30/18 SP TYPE: PITUIT OTHR DR: Matilde Burnham DPM, Patrick MDORDERED: FS, IMNO, RETIC, SURG PATH LVL /, MORPH IHC, TOUCH PREP EA A, IMMUNO EA ADD'L/4 CODES: [id number] - EXCISIONAL BIOP [id number] - PITUITARY GLAND [id number] S10281 - PITUITARY GLAND ADENOMA, NOS [id number] [id number] - CELL, NOS ADENOMA, NOS SW2678 [id number] - CELL, NOS ACIDOPHIL ADENO COPIES TO: [place] [id number] [facility] [address] [place] [address] Matilde Burnham E DPM [id number] [facility] [address] [place] [address] [place] [address] [facility] [address] [address] PROCEDURES: FS () IMNO (08/31/18) RETIC (08/31/18) SURG PATH LVL 4 (08/30/18) MORPH IHC (08/31/18) TOUCH PREP EA A (08/30/18) IMMUNO EA ADD'L (08/31/18941) TISSUES: A. PITUITARY GLAND, NOS - PITUITARY TUMOR B. PITUITARY GLAND, NOS - PITUITARY TUMOR CONSULTATION Dr. Lubin has reviewed this case and agrees with the diagnosis. CONTINUED ON NEXT PAGE RUN DATE: 09/01/18 [facility] LAB PAGE 2 RUNTIME: 8390 Specimen Inquiry RUN USER: INTERFACE SPEC #: [id number]:TREVINO:[id number] PATIENT: MELVALEIGH RUBIO #[id number] (Continued) -- CPT CODES CPT CODE(S): 79681R7 , 28261 , 39105 , 79926 , 92584H4 , 05156 , FINAL DIAGNOSIS A. and B. 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 Pituitary tumor: SUGGESTIVE OF PITUITARY ADENOMA /CB/MB GROSS DESCRIPTIONA. Pituitary tumor. Received is a pink tissue fragment (1 x 0.6 x 0.3 cm), entirely submitted for frozen section as FS1-TP1 and for permanent section as A1. B. Pituitary tumor. Received areseveral pieces of pink tissue (1.5 x 1.2 x 0.3 cm in aggregate), entirely submitted B1. /tc/latia MICROSCOPIC DESCRIPTION A. Pituitary tumor. and B. Pituitary tumor. Uniform population of ovoid, uniform cells with abundant eosinophilic cytoplasm and variably stippled chromatin pattern with central to slightly eccentric nuclei. Reticulin special stain, with adequate control, demonstrates a lack of well-organized acini, consistent with adenoma. Focal hyalinized stroma with variablevascularity. Minimal nuclear atypia without conspicuous mitotic activity. The tissue block is studied with the following panel of immunohistochemical stains, each with adequate control, with the following results: Synaptophysin: Positive. Chromogranin: Partial uptake present. CAM 5.2: Diffusely and strongly positive with ring -like pattern consistent with Crooke's hyaline. CK7: Negative. CK20: Negative. Ki-67: Very low proliferative rate (5% or less). No highlighted mitoses. /latia/cm Additional CPT code(s): 75816 CONTINUED ON NEXT PAGE RUN DATE: 09/01/18 [facility] PAGE 3 RUN TIME: 1440 Specimen Inquiry RUN USER: INTERFACE SPEC #: [id number]:TREVINO:[id number] PATIENT: LEIGH FRYE #[id number] (Continued) COMMENT: Sufficient tissue is on reserve to accomplish histologic hormone studies, as clinically appropriate. The permanent section evaluation confirms the gross intraoperative frozen section and touch prep impressions. Signed SIGNATURE ON FILE Cabrera George 09/01/18 1440 END OF REPORT [id number] 14:39:00 Test Item Value Reference Range Comments CORTISOL (test code=CORTR) 9.19 ug/dL 1.7-22.7 [id number] 14:05:00 Test Item Value Reference Range Comments SODIUM (test code=NA) 142 MMOL/L 137-145 UNABLE TO DRAW BLOOD, REASON:UA SPECIFIC [id number] 13:41:00 Test Item Value Reference Range Comments UA SPECIFIC GRAVITY (test code=SGU) 1.020 1.003-1.030 UA SPECIFIC [id number] 09:02:00 Test Item Value Reference Range Comments UA SPECIFIC GRAVITY (test code=SGU) 1.015 1.003-1.030 [id number] 08:19:00 Test Item Value Reference Range Comments SODIUM (test code=NA) 144 MMOL/L 137-145 UR METANEPHRINES [id number] 07:28:00 Test Item Value Reference Range Comments UR METANEPHRINES 24HR (test code=MET24T) mcg/24h 35-460 UR METANEPHRINES (TOTAL) (test code=METTU) ug/L NORMETANEPHRINE (test code=NORMETT) ug/L NORMETANEPHRINE 24 HR (test code=NORMETUR) mcg/24h 82-500 UR HYDROXYINDOLEACETIC ACID [id number] 07:28:00 Test Item Value Reference Range Comments UR HYDROXYINDOLEACETIC ACID QT 3.9 mg/24 hr 0.0-14.9 Performed At: (test code=5HIAAU) [address] [id number] Sanjai MD Ph:[phone] UR VOLUME (test code=VOL) 3500 ML 800-1800 UR METANEPHRINES [id number] 07:23:00 Test Item Value Reference Range Comments UR METANEPHRINES 24HR (test code=MET24T) mcg/24h 35-460 UR METANEPHRINES (TOTAL) (test code=METTU) ug/L NORMETANEPHRINE (test code=NORMETT) ug/L NORMETANEPHRINE 24 HR (test code=NORMETUR) mcg/24h 82-500 UR HYDROXYINDOLEACETIC ACID [id number] 07:23:00 Test Item Value Reference Range Comments UR HYDROXYINDOLEACETIC ACID QT 3.9 mg/24 hr 0.0-14.9 Performed At: BN (test code=5HIAAU) [address] [id number] Peterson MD Ph:[phone] UR VOLUME (test code=VOL) ML 800-1800 AB PARIETAL [id number] 07:22:00 Test Item Value Reference Range Comments AB PARIETAL CELL (test 4.10 Units 0.0-20.0 code=PARIETALAB) Negative 0.0 - 20.0 Equivocal 20.1 - 24.9 Positive >24.9Parietal Cell Antibodies are found in 90% of patientswith pernicious anemia and 30% of first degreerelatives with pernicious anemia.Performed At: [address] [id number] Peterson MD Ph:[phone] [id number] 07:22:00 Test Item Value Reference Range Comments ALDOSTERONE (test < 1.0 ng/dL 0.0-30.0 This test was developed and its code=ALDOS) performance characteristicsdetermined by [facility]. It has not been cleared orapproved by the Food and Drug Administration.Performed At: [address] [id number] Peterson MD Ph:[phone]~~~~~~~~~~~~~~~~~~~~~~ ~~~~~~~~~~~~~~~~~~~~~~~~~~~~~~~~~~~ ~~~ALDOSTERONE REFERENCE RANGES: SUPINE.........0 - 15.9 NG/DL UPRIGHT..........4 - 39 NG/DL ADRENAL VEIN..200 - 800 NG/DL NORMAL SODIUM INTAKE (100 - 200 MEQ/DAY)~~~~~~~~~~~~~~~~~~~~~~~~~~~ ~~~~~~~~~~~~~~~~~~~~~~~~~~~~~~~~~ CBC W/AUTO [id number] 06:29:00 Test Item Value Reference Range Comments WHITE BLOOD CELL (test code=WBC) 11.7 K/MM3 3.8-9.8 RED BLOOD CELL (test code=RBC) 3.59 M/MM3 3.58-4.97 HEMOGLOBIN (test code=HGB) 8.0 G/DL 11.2-14.9 HEMATOCRIT (test code=HCT) 26.8 % 33.2-43.5 MEAN CELL VOLUME (test code=MCV) 75 fL 80.7-99.1 MEAN CELL HGB (test code=MCH) 22.3 pg 27.0-34.1 MEAN CELL HGB CONCETRATION (test code=MCHC) 29.9 % 32.2-35.7 RED CELL DISTRIBUTION WIDTH (test code=RDW) 19.5 % 12.1-15.2 PLATELET COUNT (test code=PLT) 301 K/MM3 129-368 MEAN PLATELET VOLUME (test code=MPV) 9.4 fl 7.4-10.4 NEUTROPHIL % (test code=NT%) 71.6 % 43-75 IMMATURE GRANULOCYTE % (test code=IG%) 1.4 % 0.0-2.0 LYMPHOCYTE % (test code=LY%) 18.1 % 14-44 MONOCYTE % (test code=MO%) 8.3 % 4-13 EOSINOPHIL % (test code=EO%) 0.5 % 0-6 BASOPHIL % (test code=BA%) 0.1 % 0-2 NUCLEATED RBC % (test code=NRBC%) 0.0 % 0-1.0 NEUTROPHIL # (test code=NT#) 8.40 K/mm3 2.0-7.6 IMMATURE GRANULOCYTE # (test code=IG#) 0.16 x10 3/uL 0-0.03 LYMPHOCYTE # (test code=LY#) 2.13 K/mm3 1.0-3.8 MONOCYTE # (test code=MO#) 0.98 K/mm3 0.1-0.8 EOSINOPHIL # (test code=EO#) 0.06 K/mm3 0.0-0.2 BASOPHIL # (test code=BA#) 0.01 K/mm3 0.0-0.2 NUCLEATED RBC # (test code=NRBC#) 0.00 K/mm3 0.0-0.1 PROTHROMBIN [id number] 06:22:00 Test Item Value Reference Range Comments PROTHROMBIN TIME PATIENT (test 10.1 SECONDS 9.6-11.6 code=PTP) INTERNATIONAL NORMAL RATIO 1.0 0.8-1.1 The INR is to be used only (test code=INR) for monitoring oral anticoagulanttherapy. INDICATION INR VALUE 1. Prophylaxis, deep venous thrombosis, including high risk surgery. 2.0 - 3.0 2. Prophylaxis, deep venous thrombosis, hip surgery, treatment for deep venous thrombosis or pulmonary prevention of systemic embolism in patients with valvular heart disease, atrial fibrillation, tissue heart valve, or acute myocardial infarction. 2.0 - 3.0 3. Mechanical prosthesis heart valves, recurrent systemic embolism. 3.0 - 4.5 PTT [id number] 06:22:00 Test Item Value Reference Range Comments PTT ACTIVATED (test code=APTT) 25.0 SECONDS 22.0-33.0 BASIC METABOLIC [id number] 04:51:00 Test Item Value Reference Range Comments SODIUM (test code=NA) 143 MMOL/L 137-145 POTASSIUM (test code=K) 4.1 MMOL/L 3.5-5.1 CHLORIDE (test code=CL) 112 MMOL/L 98-107 CARBON DIOXIDE (test code=CO2) 25 MMOL/L 22-30 GLUCOSE (test code=GLU) 198 MG/DL 74-106 BLOOD UREA NITROGEN (test 13 MG/DL 7-17 code=BUN) GLOMERULAR FILTRATION RATE > 60 Reporting units: ml/min/1.73 (test code=GFR) m2 (Modified MDRD Formula)Reference Range: > or=60 ml/min/1.73 m2 CREATININE (test code=CREAT) 0.70 MG/DL 0.52-1.04 CALCIUM (test code=CA) 8.8 MG/DL 8.4-10.2 UA SPECIFIC [id number] 03:20:00 Test Item Value Reference Range Comments UA SPECIFIC GRAVITY (test code=SGU) 1.005 1.003-1.030 [id number] 23:45:00 Test Item Value Reference Range Comments SODIUM (test code=NA) 142 MMOL/L 137-145 [id number] 21:37:00 Test Item Value Reference Range Comments SODIUM (test code=NA) 141 MMOL/L 137-145 UA SPECIFIC [id number] 20:17:00 Test Item Value Reference Range Comments UA SPECIFIC GRAVITY (test code=SGU) 1.010 1.003-1.030 UA SPECIFIC [id number] 17:42:00 Test Item Value Reference Range Comments UA SPECIFIC GRAVITY (test code=SGU) 1.015 1.003-1.030 [id number] 16:52:00 Test Item Value Reference Range Comments SODIUM (test code=NA) 139 MMOL/L 137-145 [id number] 11:35:00 Test Item Value Reference Range Comments SODIUM (test code=NA) 140 MMOL/L 137-145 UA SPECIFIC [id number] 08:28:00 Test Item Value Reference Range Comments UA SPECIFIC GRAVITY (test code=SGU) 1.010 1.003-1.030 UR SODIUM [id number] 08:28:00 Test Item Value Reference Range Comments UR SODIUM RANDOM (test code=BRIGIDO) 91 MMOL/L 27-287 - CT HEAD/BRAIN W/O [id number] 08:17:00 Patient Name: LEIGH FRYE Unit No: [id number] EXAMS: CPT CODE: [id number] CT HEAD/BRAIN W/O CONT 38082 Dictation location: U19. CT HEAD WITHOUT CONTRAST. HISTORY: Post Op Craniotomy COMPARISON: CT head 01/07. TECHNIQUE: Axial CT images of the head were obtained with coronal and/or sagittal reformatted views. Automated exposure control, iterative reconstruction technique, and/or adjustment of mA and/or kV according to patient's size was utilized for radiation dose reduction. IV CONTRAST: None. FINDINGS: Interval postoperative changes in the transsphenoidal resection of pituitary tumor is noted. Fluid and hemorrhage seen in the sphenoid sinuses with thickening and fluid noted in the nasal cavity, ethmoid sinuses and maxillary sinuses.. Fat is noted in the pituitary sella related to the resection. No other intracranial abnormalities such as hemorrhage, mass, mass effect, hydrocephalus, midline shift, extra-axial fluid collection or secondary signs of an acute infarct are noted. The calvarium and skull base are intact. The paranasal sinus and mastoid air cells are clear. Chronic depressed right inferior orbital wall fracture with herniation of the extra conal fat and portion of the inferior rectus muscle, unchanged. IMPRESSION: Intervalpostoperative changes of a transsphenoidal resection of pituitary tumor with expected changes seen in the region. Otherwise, no other intracranial abnormality. at 0817 Reported and signed by: Keri Avila MD CC: Michael Martínez NP Technologist: Tom Laguerre, RT(R)(CT) CTDI: DLP: Trnscrpt: 08/31/2018 (0817) t.[email or web address].[email or web address] [facility] NAME: LEIGH FRYE PHYS: Tanya Syed NP [place] [id number] : 1980 AGE: 38 SEX: F LOC: [id number] A PHONE #: [phone] EXAM DATE: 08/31/2018 STATUS: ADM IN FAX #: [phone] RAD #: D/C DT PAGE 1 Signed Report Patient Name: LEIGH FRYE Unit No: [id number] EXAMS: CPT CODE: [id number] CT HEAD/BRAIN W/O CONT 39461 <Continued> Orig Print D/T: S: 08/31/2018 (0820) [facility] NAME: LEIGH FRYE [place] PHYS: Tanya Syed NP [place] [id number] : 1980 AGE: 38 SEX: F LOC: Z.SI09 A PHONE #: [phone] EXAM DATE: 08/31/2018 STATUS: ADMIN FAX #: [phone] RAD #: D/C DT PAGE 2 Signed ReportUA SPECIFIC [id number] 08:12:00 Test Item Value Reference Range Comments UA SPECIFIC GRAVITY (test code=SGU) 1.010 1.003-1.030 UR SODIUM [id number] 08:12:00 Test Item Value Reference Range Comments UR SODIUM RANDOM (test code=BRIGIDO) MMOL/L 27-287 [id number] 07:31:00 Test Item Value Reference Range Comments THYROGLOBULIN (test code=THYROGL) 6.3 NORMAL : 1.5-38.5 ng/ml METANEPHRINES, FREE, [id number] 07:24:00 Test Item Value Reference Range Comments METANEPHRINES, FREE, 12 pg/mL 0-62 This test was developed and its PLASMA (test performance characteristicsdetermined code=METAF) by [facility]. It has not been cleared orapproved by the Food and Drug Administration.Concentrations of Normetanephrine between 146 and 487pg/mL, and Metanephrine between 63 and 255 pg/mL areconsidered indeterminate. Follow-up biochemical testing isrecommended when patient levels fall within thisindeterminate range. These tests include repeat testing ofplasma/urinary fractionated metanephrines and plasmacatecholamines.Performed At: [address] [id number] Peterson MD Ph:[phone] [id number] 03:54:00 Test Item Value Reference Range Comments CORTISOL (test code=CORTR) 78.90 ug/dL 1.7-22.7 [id number] 01:35:00 Test Item Value Reference Range Comments SODIUM (test code=NA) 142 MMOL/L 137-145 UA SPECIFIC [id number] 00:52:00 Test Item Value Reference Range Comments UA SPECIFIC GRAVITY (test code=SGU) 1.005 1.003-1.030 UA SPECIFIC [id number] 17:15:00 Test Item Value Reference Range Comments UA SPECIFIC GRAVITY (test code=SGU) 1.025 1.003-1.030 [id number] 16:51:00 Test Item Value Reference Range Comments CORTISOL (test code=CORTR) 46.60 ug/dL 1.7-22.7 UNABLE TO DRAW BLOOD, REASON: CBNNOTIFIED PATIENT CARE STAFF: DAVID GODWIN AT 1534 BY Christian Montelongo METABOLIC [id number] 16:06:00 Test Item Value Reference Range Comments SODIUM (test code=NA) 139 MMOL/L 137-145 POTASSIUM (test code=K) 4.1 MMOL/L 3.5-5.1 CHLORIDE (test code=CL) 107 MMOL/L 98-107 CARBON DIOXIDE (test code=CO2) 24 MMOL/L 22-30 GLUCOSE (test code=GLU) 137 MG/DL 74-106 BLOOD UREA NITROGEN (test 15 MG/DL 7-17 code=BUN) GLOMERULAR FILTRATION RATE > 60 Reporting units: ml/min/1.73 (test code=GFR) m2 (Modified MDRD Formula)Reference Range: > or=60 ml/min/1.73 m2 CREATININE (test code=CREAT) 0.80 MG/DL 0.52-1.04 CALCIUM (test code=CA) 9.2 MG/DL 8.4-10.2 UNABLE TO DRAW BLOOD, REASON: CBNNOTIFIED PATIENT CARE STAFF: DAVID GODWIN AT 1533 BY Tim Montelongo W/AUTO [id number] 15:57:00 Test Item Value Reference Range Comments WHITE BLOOD CELL (test code=WBC) 10.6 K/MM3 3.8-9.8 RED BLOOD CELL (test code=RBC) 4.24 M/MM3 3.58-4.97 HEMOGLOBIN (test code=HGB) 9.1 G/DL 11.2-14.9 HEMATOCRIT (test code=HCT) 30.9 % 33.2-43.5 MEAN CELL VOLUME (test code=MCV) 73 fL 80.7-99.1 MEAN CELL HGB (test code=MCH) 21.5 pg 27.0-34.1 MEAN CELL HGB CONCETRATION (test code=MCHC) 29.4 % 32.2-35.7 RED CELL DISTRIBUTION WIDTH (test code=RDW) 17.9 % 12.1-15.2 PLATELET COUNT (test code=PLT) 326 K/MM3 129-368 MEAN PLATELET VOLUME (test code=MPV) 9.4 fl 7.4-10.4 NEUTROPHIL % (test code=NT%) 78.2 % 43-75 IMMATURE GRANULOCYTE % (test code=IG%) 0.7 % 0.0-2.0 LYMPHOCYTE % (test code=LY%) 15.2 % 14-44 MONOCYTE % (test code=MO%) 4.9 % 4-13 EOSINOPHIL % (test code=EO%) 0.8 % 0-6 BASOPHIL % (test code=BA%) 0.2 % 0-2 NUCLEATED RBC % (test code=NRBC%) 0.0 % 0-1.0 NEUTROPHIL # (test code=NT#) 8.27 K/mm3 2.0-7.6 IMMATURE GRANULOCYTE # (test code=IG#) 0.07 x10 3/uL 0-0.03 LYMPHOCYTE # (test code=LY#) 1.61 K/mm3 1.0-3.8 MONOCYTE # (test code=MO#) 0.52 K/mm3 0.1-0.8 EOSINOPHIL # (test code=EO#) 0.08 K/mm3 0.0-0.2 BASOPHIL # (test code=BA#) 0.02 K/mm3 0.0-0.2 NUCLEATED RBC # (test code=NRBC#) 0.00 K/mm3 0.0-0.1 UNABLE TO DRAW BLOOD, REASON: CBNNOTIFIED PATIENT CARE STAFF: DAVID GODWIN AT 1534 BY Demetrius Montelongo ARTERIAL BLOOD [id number] 12:31:00 Test Item Value Reference Range Comments POC ARTERIAL BLOOD GAS PH 7.396 7.35-7.45 Previously reported result: (test code=POCPHA) 7.411 Edited by: DOMINIC on 08/30/18: 1230: POC ABG PH previously reported as: 7.411 POC ARTERIAL BLOOD GAS PCO2 40.9 mmHg 35.0-45.0 Previously reported result: (test code=XORFRK4P) 39.2 mmHgEdited by: DOMINIC on 08/30/18: 1230: KXMOEF1H previously reported as: 39.2 mmHg POC ARTERIAL BLOOD GAS PO2 87 75.0-100.0 Previously reported result: (test code=WFRKX2C) 82 Edited by: DOMINIC on 08/30/18: 1230: POC PO2A previously reported as: 82 POC HCO3 ARTERIAL (test 25.1 MMOL/L 20.0-26.0 code=KYEQQL5X) POC BASE EXCESS (test 0.0 MMOL/L -3.0-3.0 code=POCBEA) POC O2 SATURATION (test 97 % 92.0-98.5 code=POCO2S) FIO2 (test code=FIO2A) 21 % 21-100 ABG DELIVERY (test code=KIRILL) Room Air ABG TEMPERATURE (test 37.0 C >37 code=TEMPA) ABG SITE (test code=SITEA) R Radial ALLENS TEST (test YES CHECK ~ code=ALLENS) POC LACTIC ACID (test 0.87 MMOL/L 0.4-2.0 code=POCLAC) HCG [id number] 11:02:00 Test Item Value Reference Range Comments HCG POC (test < 5.0 IU/L Results of 5.0 - 25.0 IU/L are code=HCGPOC) indeterminate and do not ruleout . Because hCG values double approximately every48 hours in a normal , patients with low levels ofhCG should be resampled and retested after 48 hours toconfirm . T3,T4 [id number] 07:15:00 Test Item Value Reference Range Comments T3 UPTAKE (test code=T3UP) 34.6 % UP 23.5-40.5 T4 (THYROXINE) (test code=T4) 7.16 UG/DL 5.53-11.0 T7 (FREE THYROXINE INDEX) (test code=T7) 2.5 1.2-4.3 ADRENOCORTICOTROPIC [id number] 07:15:00 Test Item Value Reference Range Comments ADRENOCORTICOTROPIC HORMONE (test 35.5 pg/mL 7.2-63.3 ACTH reference interval code=ACTH) for samples collected between 7 and10 AM. FOLLICLE STIM LEUTINIZING [id number] 07:15:00 Test Item Value Reference Range Comments LUTEINIZING HORMONE (test 6.60 mIU/mL () Adult code=LH) Female: Follicular phase 2.4 - 12.6 Ovulation phase 14.0 - 95.6 Luteal phase 1.0 - 11.4 Postmenopausal 7.7 - 58.5LH INTERPRETIVE DATA: MALES: 1.5-9.3 NORMAL MENSTRUATING FEMALES: FOLLICULAR PHASE: 1.9-12.5 MID-CYCLE PHASE: 8.7-76.3 LUTEAL PHASE: 0.5-16.9 POSTEMNOPAUSAL FEMALES: 15.9-54 ALL VAULES GIVEN IN OG-INTERNATIONAL UNITS PER MILLILITER FOLLICLE STIMULATING 7.0 mIU/mL () Adult HORMONE (test code=FSH) Female: Follicular phase 3.5 - 12.5 Ovulation phase 4.7 - 21.5 Luteal phase 1.7 - 7.7 Postmenopausal 25.8 - 134.8FSH INTERPRETIVE DATA: MALES: 1.4 - 18.1 NOMALLY MENSTRUATING FEMALES: FOLLICULAR PHASE: 2.5 - 10.2 MID-CYCLE PEAK: 3.4 - 33.4 LUTEAL PHASE: 1.5 - 9.1 POSTMENOPAUSAL FEMALES: 23.0 - 116.3All values given in og-Internationals Unit per milliliter GROWTH HORMONE (HUMAN)2018-08-30 07:15:00 Test Item Value Reference Range Comments GROWTH HORMONE (HUMAN) (test 0.1 ng/mL 0.0-10.0 Performed At: [facility] code=GH) [address] [id number] Farfan MD Ph:[phone] At: [facility] [id number] Sanjai MD Ph:[phone] INSULIN-LIKE GROWTH FACTOR [id number] 07:15:00 Test Item Value Reference Range Comments INSULIN-LIKE GROWTH FACTOR I (test code=INSLKGF1) 147 ng/mL 69-227 [id number] 07:15:00 Test Item Value Reference Range Comments PROLACTIN (test code=PROLAC) 42.1 ng/mL 4.8-23.3 Performed At: [facility] [address] [id number] Farfan MD Ph:[phone] PROTHROMBIN [id number] 07:06:00 Test Item Value Reference Range Comments PROTHROMBIN TIME PATIENT (test 10.3 SECONDS 9.6-11.6 code=PTP) INTERNATIONAL NORMAL RATIO 1.0 0.8-1.1 The INR is to be used only (test code=INR) for monitoring oral anticoagulanttherapy. INDICATION INR VALUE 1. Prophylaxis, deep venous thrombosis, including high risk surgery. 2.0 - 3.0 2. Prophylaxis, deep venous thrombosis, hip surgery, treatment for deep venous thrombosis or pulmonary prevention of systemic embolism in patients with valvular heart disease, atrial fibrillation, tissue heart valve, or acute myocardial infarction. 2.0 - 3.0 3. Mechanical prosthesis heart valves, recurrent systemic embolism. 3.0 - 4.5 PTT [id number] 07:06:00 Test Item Value Reference Range Comments PTT ACTIVATED (test code=APTT) 28.7 SECONDS 22.0-33.0 - CT HD/BR W W/O [id number] 18:59:00 Patient Name: LEIGH FRYE Unit No: [id number] EXAMS: CPT CODE: [id number] CT HD/BR W W/O CONT 34361 CLINICAL INFORMATION: Evaluate pituitary tumor. Dictation Location:R 16 COMPARISON: No prior study available for review at this time.. Technique: Pre and postcontrast CT head was done in the usual fashion. Sagittal and coronal reconstructions. Appropriate dose reduction and image optimization technique was used. DLP 2461 mGy- cm.. FINDINGS: There is a circumscribed soft tissue heterogeneously enhancing mass within the expanded bony sella turcica. This is ovoid pointing up measuring 2 cm cephalocaudad, 1.7 cm anteroposterior, and 1.9 cm transversely. The remainder of the brain is unremarkable. No intrinsic mass, abnormal enhancement, hemorrhage, or abnormal extra-axial fluid collection. There is mild sinusitis. An old inferomedial blowout fracture of the right orbit is noted with partial subluxation of the inferior rectus muscle. IMPRESSION: 1. Pituitary macroadenoma. Further evaluation with MRI may be helpful. 2. Oldright orbital blowout fracture with subluxation of the inferior rectus muscle. at 1859 Reported and signed by: Pranav Chaudhari M.D. CC: Michael Martínez NP Technologist: Bethany Mane RT(R)(CT); Kade Hanna CTDI: DLP: Trnscrpt: 08/29/2018 (2889) [facility] NAME: LEIGH FRYE [id number] [address] PHYS: Tanya Syed, BURIAL AGENT [place] [id number] : 1979 AGE: 38 SEX: F LOC: Z.535 A PHONE #: [phone] EXAM DATE: STATUS: ADM IN FAX #: [phone] RAD #: D /C DT PAGE 1 Signed Report Patient Name: LEIGH FRYE Unit No: [id number] EXAMS: CPT CODE: [id number] CT HD/BR W W/O CONT 69091 <Continued> Orig Print D/T: S: 08/29/2018 (190) [facility] [place] NAME: LEIGH FRYE [id number] [address] PHYS: Tanya Syed, BURIAL AGENT [place] [id number] : 1979 AGE: 38 SEX: F LOC: Z.535 A PHONE #: [phone] EXAM DATE: 08/29/2018 STATUS: ADM IN FAX #: [phone] RAD #: D/C DT PAGE 2 Signed ReportBASIC METABOLIC [id number] 15:55:00 Test Item Value Reference Range Comments SODIUM (test code=NA) 139 MMOL/L 137-145 POTASSIUM (test code=K) 4.4 MMOL/L 3.5-5.1 CHLORIDE (test code=CL) 105 MMOL/L 98-107 CARBON DIOXIDE (test code=CO2) 25 MMOL/L 22-30 ANION GAP (test code=GAP) 13 MMOL/L 14-24 GLUCOSE (test code=GLU) 113 MG/DL 74-106 BLOOD UREA NITROGEN (test 17 MG/DL 7-17 code=BUN) GLOMERULAR FILTRATION RATE > 60 Reporting units: ml/min/1.73 (test code=GFR) m2 (Modified MDRD Formula)Reference Range: > or=60 ml/min/1.73 m2 CREATININE (test code=CREAT) 0.90 MG/DL 0.52-1.04 CALCIUM (test code=CA) 9.7 MG/DL 8.4-10.2 HCG [id number] 15:55:00 Test Item Value Reference Range Comments HCG SERUM (test code=HCG) < 2 IU/L ~~~~~~~~~~~~~~~~~~~~~~~~~~~~~~~~~~~ ~~~~~~~~~~~~~~~~~~~~~~~~~[facility] [place] [facility] 0.2-1 WEEKS AFTER CONCEPTION 5-50 1-2 WEEKS AFTER CONCEPTION 50-500 2-3 WEEKS AFTER CONCEPTION 100-5,000 3-4 WEEKS AFTER CONCEPTION 500-10,000 4-5 WEEKS AFTER CONCEPTION 1,000-50,000 5-6 WEEKS AFTER CONCEPTION 10,000-100,0006-8 WEEKS AFTER CONCEPTION 15,000-200,0002-3 MONTHS 10,000-100,000 All values given in og-International Units per milliliter. SPECIMENS WITH B-HCG LEVELS LESS THAN OR EQUAL TO 5 og-International Units per milliliter WILL BE REPORTED ZERO OR "NEGATIVE." SPECIMENS WITHB-HCG LEVELS GREATER THAN OR EQUAL TO 25 og-International Units per milliliter WILL BEREPORTED "POSITIVE." SPECIMENS WITH B-HCG LEVELS GREATERTHAN 5 og-International Units per milliliter AND LESS THAN 25 og-International Units per milliliterSHOULD HAVE ADDITIONAL BLOOD SAMPLE DRAWN 48 HOURSLATER AND REPEATED.~~~~~~~~~~~~~~~~~~~~~~~~~~ ~~~~~~~~~~~~~~~~~~~~~~~~~~~~~~~~~~ PROTHROMBIN [id number] 15:45:00 Test Item Value Reference Range Comments PROTHROMBIN TIME PATIENT (test 10.2 SECONDS 9.6-11.6 code=PTP) INTERNATIONAL NORMAL RATIO 1.0 0.8-1.1 The INR is to be used only (test code=INR) for monitoring oral anticoagulanttherapy. INDICATION INR VALUE 1. Prophylaxis, deep venous thrombosis, including high risk surgery. 2.0 - 3.0 2. Prophylaxis, deep venous thrombosis, hip surgery, treatment for deep venous thrombosis or pulmonary prevention of systemic embolism in patients with valvular heart disease, atrial fibrillation, tissue heart valve, or acute myocardial infarction. 2.0 - 3.0 3. Mechanical prosthesis heart valves, recurrent systemic embolism. 3.0 - 4.5 BASIC METABOLIC [id number] 15:39:00 Test Item Value Reference Range Comments SODIUM (test code=NA) 139 MMOL/L 137-145 POTASSIUM (test code=K) 4.4 MMOL/L 3.5-5.1 CHLORIDE (test code=CL) 105 MMOL/L 98-107 CARBON DIOXIDE (test code=CO2) 25 MMOL/L 22-30 ANION GAP (test code=GAP) 13 MMOL/L 14-24 GLUCOSE (test code=GLU) 113 MG/DL 74-106 BLOOD UREA NITROGEN (test 17 MG/DL 7-17 code=BUN) GLOMERULAR FILTRATION RATE > 60 Reporting units: ml/min/1.73 (test code=GFR) m2 (Modified MDRD Formula)Reference Range: > or=60 ml/min/1.73 m2 CREATININE (test code=CREAT) 0.90 MG/DL 0.52-1.04 CALCIUM (test code=CA) 9.7 MG/DL 8.4-10.2 HCG [id number] 15:39:00 Test Item Value Reference Range Comments HCG SERUM (test code=HCG) IU/L CBC W/AUTO [id number] 15:29:00 Test Item Value Reference Range Comments WHITE BLOOD CELL (test code=WBC) 10.8 K/MM3 3.8-9.8 RED BLOOD CELL (test code=RBC) 4.14 M/MM3 3.58-4.97 HEMOGLOBIN (test code=HGB) 8.9 G/DL 11.2-14.9 HEMATOCRIT (test code=HCT) 29.9 % 33.2-43.5 MEAN CELL VOLUME (test code=MCV) 72 fL 80.7-99.1 MEAN CELL HGB (test code=MCH) 21.5 pg 27.0-34.1 MEAN CELL HGB CONCETRATION (test code=MCHC) 29.8 % 32.2-35.7 RED CELL DISTRIBUTION WIDTH (test code=RDW) 17.2 % 12.1-15.2 PLATELET COUNT (test code=PLT) 277 K/MM3 129-368 MEAN PLATELET VOLUME (test code=MPV) 10.4 fl 7.4-10.4 NEUTROPHIL % (test code=NT%) 70.5 % 43-75 IMMATURE GRANULOCYTE % (test code=IG%) 0.4 % 0.0-2.0 LYMPHOCYTE % (test code=LY%) 19.6 % 14-44 MONOCYTE % (test code=MO%) 6.9 % 4-13 EOSINOPHIL % (test code=EO%) 2.1 % 0-6 BASOPHIL % (test code=BA%) 0.5 % 0-2 NUCLEATED RBC % (test code=NRBC%) 0.0 % 0-1.0 NEUTROPHIL # (test code=NT#) 7.62 K/mm3 2.0-7.6 IMMATURE GRANULOCYTE # (test code=IG#) 0.04 x10 3/uL 0-0.03 LYMPHOCYTE # (test code=LY#) 2.11 K/mm3 1.0-3.8 MONOCYTE # (test code=MO#) 0.74 K/mm3 0.1-0.8 EOSINOPHIL # (test code=EO#) 0.23 K/mm3 0.0-0.2 BASOPHIL # (test code=BA#) 0.05 K/mm3 0.0-0.2 NUCLEATED RBC # (test code=NRBC#) 0.00 K/mm3 0.0-0.1 LUPUS (LE) [id number] 07:42:00 Test Item Value Reference Range Comments LUPUS (SLE) PANEL RESULTS AI 0.0-0.9 Systemic Lupus Profile A CULTURE MEDIA LABORATORY ASSISTANT (test code=SLEPANELR) Antibodies <0.2 AI 0.0 - 0.9 Traylor Antibodies <0.2 AI 0.0 - 0.9 RA Latex Turbid. <10.0 IU/mL 0.0 - 13.9 Antichromatin Antibodies <0.2 AI 0.0 - 0.9 Sjogren's Anti-SS-A <0.2 AI 0.0 - 0.9 Sjogren's Anti-SS-B <0.2 AI 0.0 - 0.9 Anti-DNA (DS) Ab Qn <1 IU/mL 0 - 9 Negative <5 Equivocal 5 - 9 Positive >9 T3,T4 [id number] 07:23:00 Test Item Value Reference Range Comments T3 UPTAKE (test code=T3UP) 34.6 % UP 23.5-40.5 T4 (THYROXINE) (test code=T4) 7.16 UG/DL 5.53-11.0 T7 (FREE THYROXINE INDEX) (test code=T7) 2.5 1.2-4.3 ADRENOCORTICOTROPIC [id number] 07:23:00 Test Item Value Reference Range Comments ADRENOCORTICOTROPIC HORMONE (test code=ACTH) pg/ml 7.2-63.3 FOLLICLE STIM LEUTINIZING [id number] 07:23:00 Test Item Value Reference Range Comments LUTEINIZING HORMONE (test 6.60 mIU/mL () Adult code=LH) Female: Follicular phase 2.4 - 12.6 Ovulation phase 14.0 - 95.6 Luteal phase 1.0 - 11.4 Postmenopausal 7.7 - 58.5LH INTERPRETIVE DATA: MALES: 1.5-9.3 NORMAL MENSTRUATING FEMALES: FOLLICULAR PHASE: 1.9-12.5 MID-CYCLE PHASE: 8.7-76.3 LUTEAL PHASE: 0.5-16.9 POSTEMNOPAUSAL FEMALES: 15.9-54 ALL VAULES GIVEN IN OG-INTERNATIONAL UNITS PER MILLILITER FOLLICLE STIMULATING 7.0 mIU/mL () Adult HORMONE (test code=FSH) Female: Follicular phase 3.5 - 12.5 Ovulation phase 4.7 - 21.5 Luteal phase 1.7 - 7.7 Postmenopausal 25.8 - 134.8FSH INTERPRETIVE DATA: MALES: 1.4 - 18.1 NOMALLY MENSTRUATING FEMALES: FOLLICULAR PHASE: 2.5 - 10.2 MID-CYCLE PEAK: 3.4 - 33.4 LUTEAL PHASE: 1.5 - 9.1 POSTMENOPAUSAL FEMALES: 23.0 - 116.3All values given in og-Internationals Unit per milliliter GROWTH HORMONE (HUMAN)2018-08-29 07:23:00 Test Item Value Reference Range Comments GROWTH HORMONE (HUMAN) (test code=GH) ng/ml <=13.0 INSULIN-LIKE GROWTH FACTOR [id number] 07:23:00 Test Item Value Reference Range Comments INSULIN-LIKE GROWTH FACTOR I (test code=INSLKGF1) ng/ml 81-225 [id number] 07:23:00 Test Item Value Reference Range Comments PROLACTIN (test code=PROLAC) 42.1 ng/mL 4.8-23.3 Performed At: [facility] [address] [id number] Etienne Farfan MD Ph:[phone] [id number] 21:15:00 Test Item Value Reference Range Comments AMYLASE (test code=VERO) 90 UNITS/L 30-110 - US HEAD AND [id number] 14:27:00 Patient Name: LEIGH FRYE Unit No: [id number] EXAMS: CPT CODE : [id number] US HEAD AND NECK 55231 Exam:Parathyroid ultrasound. Location: Clinical Indication:38-year-old with elevated parathormone. Comparison:None Findings:Ultrasound of the neck was performed. A parathyroid mass or lymphadenopathy is not identified. The thyroid itself was not completely evaluated. However, the harness rigger identifies a 2.7 cm well-circumscribed ovoid mass of the right thyroid. Impression: 1. Parathyroid mass, lymphadenopathy is not identified. 2. 2.7 cm smoothly marginated mass of the right thyroid gland. The thyroid is not completely evaluated on this study. Follow- up with dedicated thyroid evaluation is recommended. at 1427 Reported and signed by: Ko Valles M.D. CC: Technologist: Christina Frost RDMS(OB)(AB) Transcrpt Date/Tm/Trnsp: 2018 (1427) [email or web address] Orig Print D/T: S: 08/28/2018 (9202) [facility] NAME: LEIGH FRYE [address] [address] PHYS: [place] [address] : 1980 AGE: 38 SEX: F LOC: [id number] A PHONE #: [phone] EXAM DATE: 08/28/2018 STATUS: ADM IN FAX #: [phone] RADIOLOGY NO: PAGE 1 Signed ReportVITAMIN [id number] 09:57:00 Test Item Value Reference Range Comments VITAMIN B12 (test code=VITB12) 266 pg/mL 239-931 FOLIC ACID BY [id number] 09:57:00 Test Item Value Reference Range Comments FOLIC ACID BY SHAREE (test 6.2 ng/mL REFERENCE VALUES: NORMAL: code=FOLR) 2.76 - >20 ng/ML DEFICIENT: 1.04 - 2.79 ng/ML FE W/TOTAL IRON BINDING CAP.2018-08-27 09:43:00 Test Item Value Reference Range Comments SERUM IRON (test code=IRON) 26 MCG/DL 37-170 TOTAL IRON BINDING CAPACITY (test code=TIBC) 428 MCG/DL 265-497 IRON SATURATION (test code=FESAT) 6 % 12-57 FE W/TOTAL IRON BINDING CAP.2018-08-27 09:34:00 Test Item Value Reference Range Comments SERUM IRON (test code=IRON) 26 MCG/DL 37-170 TOTAL IRON BINDING CAPACITY (test code=TIBC) MCG/DL 265-497 IRON SATURATION (test code=FESAT) % 12-57 HGB [id number] 06:09:00 Test Item Value Reference Range Comments HEMOGLOBIN (test code=HGB) 8.7 G/DL 11.2-14.9 HEMATOCRIT (test code=HCT) 29.1 % 33.2-43.5 PARATHYROID HORMONE [id number] 20:27:00 Test Item Value Reference Range Comments PARATHYROID HORMONE INTACT (test code=PARAI) 106.9 pg/mL 7.5-53.5 PLATELET [id number] 18:01:00 Test Item Value Reference Range Comments PLATELET COUNT (test code=PLT) 305 K/MM3 129-368 POC ARTERIAL BLOOD [id number] 15:07:00 Test Item Value Reference Range Comments POC ARTERIAL BLOOD GAS PH (test code=POCPHA) 7.411 7.35-7.45 POC ARTERIAL BLOOD GAS PCO2 (test code=IFBVJP6A) 39.2 mmHg 35.0-45.0 POC ARTERIAL BLOOD GAS PO2 (test code=GWPZV5G) 82 75.0-100.0 POC HCO3 ARTERIAL (test code=YDLZXZ4S) 25.1 MMOL/L 20.0-26.0 POC BASE EXCESS (test code=POCBEA) 0.0 MMOL/L -3.0-3.0 POC O2 SATURATION (test code=POCO2S) 97 % 92.0-98.5 FIO2 (test code=FIO2A) 21 % 21-100 ABG DELIVERY (test code=KIRILL) Room Air ABG SITE (test code=SITEA) R Radial ALLENS TEST (test code=ALLENS) YES CHECK ~ POC LACTIC ACID (test code=POCLAC) 0.87 MMOL/L 0.4-2.0 CORTISOL [id number] 10:38:00 Test Item Value Reference Range Comments CORTISOL AM (test code=CORTAM) 4.55 ug/dL 4.46-22.7 T4 [id number] 02:18:00 Test Item Value Reference Range Comments T4 FREE (test code=T4F) 0.9 NG/DL 0.78-2.19 THYROID STIMULATING [id number] 01:20:00 Test Item Value Reference Range Comments THYROID STIMULATING HORMONE 0.633 MIU/L 0.465-4.68 Please be aware that bias (test code=TSH) results for TSH may occur forpatient who are taking Biotin supplements. T3,T4 [id number] 01:06:00 Test Item Value Reference Range Comments T3 UPTAKE (test code=T3UP) 34.6 % UP 23.5-40.5 T4 (THYROXINE) (test code=T4) 7.16 UG/DL 5.53-11.0 T7 (FREE THYROXINE INDEX) (test code=T7) 2.5 1.2-4.3 ADRENOCORTICOTROPIC [id number] 01:06:00 Test Item Value Reference Range Comments ADRENOCORTICOTROPIC HORMONE (test code=ACTH) pg/ml 7.2-63.3 FOLLICLE STIM LEUTINIZING [id number] 01:06:00 Test Item Value Reference Range Comments LUTEINIZING HORMONE (test code=LH) See note FOLLICLE STIMULATING HORMONE (test code=FSH) See Note GROWTH HORMONE (HUMAN)2018-08-26 01:06:00 Test Item Value Reference Range Comments GROWTH HORMONE (HUMAN) (test code=GH) ng/ml <=13.0 INSULIN-LIKE GROWTH FACTOR [id number] 01:06:00 Test Item Value Reference Range Comments INSULIN-LIKE GROWTH FACTOR I (test code=INSLKGF1) ng/ml 81-225 [id number] 01:06:00 Test Item Value Reference Range Comments PROLACTIN (test code=PROLAC) NG/ML 4.8-23.3 CBC W/PLT COUNT & AUTO [id number] 14:09:00 Test Item Value Reference Range Comments WHITE BLOOD CELL COUNT (BEAKER) (test njju=054) 4.9 K/ L 4.0-10.0 RED BLOOD CELL COUNT (BEAKER) (test icpp=313) 3.62 M/ L 4.00-5.00 HEMOGLOBIN (BEAKER) (test obzw=838) 10.2 GM/DL 12.0-15.0 HEMATOCRIT (BEAKER) (test eong=088) 31.4 % 36.0-45.0 MEAN CORPUSCULAR VOLUME (BEAKER) (test ghsi=741) 86.9 fL 82.0-99.0 MEAN CORPUSCULAR HEMOGLOBIN (BEAKER) (test 28.0 pg 27.0-33.0 izfg=639) MEAN CORPUSCULAR HEMOGLOBIN CONC (BEAKER) (test 32.3 GM/DL 32.0-36.0 dyqh=112) RED CELL DISTRIBUTION WIDTH (BEAKER) (test 12.7 % 10.3-14.2 zmly=914) PLATELET COUNT (BEAKER) (test rbrk=931) 192 K/CU MM 150-430 MEAN PLATELET VOLUME (BEAKER) (test ejqx=436) 6.8 fL 6.5-10.5 NUCLEATED RED BLOOD CELLS (BEAKER) (test 0 /100 WBC 0-0 uiiz=620) NEUTROPHILS RELATIVE PERCENT (BEAKER) (test 42 % bwzm=069) LYMPHOCYTES RELATIVE PERCENT (BEAKER) (test 46 % rcwb=509) MONOCYTES RELATIVE PERCENT (BEAKER) (test 7 % xryh=418) EOSINOPHILS RELATIVE PERCENT (BEAKER) (test 6 % hltf=865) BASOPHILS RELATIVE PERCENT (BEAKER) (test 0 % rozm=481) NEUTROPHILS ABSOLUTE COUNT (BEAKER) (test 2.06 K/ L 1.80-8.00 hctv=300) LYMPHOCYTES ABSOLUTE COUNT (BEAKER) (test 2.25 K/ L 1.48-4.50 xloc=414) MONOCYTES ABSOLUTE COUNT (BEAKER) (test 0.33 K/ L 0.00-1.30 sodn=539) EOSINOPHILS ABSOLUTE COUNT (BEAKER) (test 0.28 K/ L 0.00-0.50 iyqi=496) BASOPHILS ABSOLUTE COUNT (BEAKER) (test 0.02 K/ L 0.00-0.20 jwzj=442) 0.00(MANUAL DIFFERENTIAL)2016-10-05 14:09:00 Test Item Value Reference Range Comments TOTAL COUNTED (BEAKER) (test vswe=0279) WBC MORPHOLOGY (BEAKER) (test dnzk=783) Normal PLT MORPHOLOGY (BEAKER) (test dldc=283) Normal RBC MORPHOLOGY (BEAKER) (test pexj=550) Normal BASIC METABOLIC [id number] 07:38:00 Test Item Value Reference Range Comments SODIUM (BEAKER) (test 136 meq/L 136-145 ppkr=805) POTASSIUM (BEAKER) (test 4.5 meq/L 3.5-5.1 xyns=267) CHLORIDE (BEAKER) (test 107 meq/L 98-107 belx=695) CO2 (BEAKER) (test 25 meq/L 22-29 kdqv=554) BLOOD UREA NITROGEN 13 mg/dL 7-21 (BEAKER) (test ngvl=792) CREATININE (BEAKER) (test 0.78 mg/dL 0.57-1.25 jjor=915) GLUCOSE RANDOM (BEAKER) 91 mg/dL 70-105 (test niwe=938) CALCIUM (BEAKER) (test 8.5 mg/dL 8.4-10.2 nygh=738) EGFR (BEAKER) (test 84 mL/min/1.73 sq m ESTIMATED GFR IS NOT pgmz=8548) ACCURATE CREATININE CLEARANCE IN PREDICTING GLOMERULAR FILTRATION RATE. ESTIMATED GFR IS NOT APPLICABLE FOR DIALYSIS PATIENTS. URINE [id number] 12:16:00 Test Item Value Reference Range Comments CULTURE (BEAKER) (test ESCHERICHIA COLI >100,000 col/mL spod=8757) Escherichia coli Amikacin (test code=1) Ampicillin + Sulbactam (test code=6) Aztreonam (test code=32) Cefazolin (test code=9) Cefepime (test code=51) Cefoxitin (test code=68) Ceftazidime (test code=27) Ceftriaxone (test code=52) Ertapenem (test code=38) Gentamicin (test code=18) Levofloxacin (test code=22) Meropenem (test code=34) Nitrofurantoin (test code=23) Piperacillin + Tazobactam (test code=29) Tetracycline (test code=2) Tigecycline (test mgjh=891) Tobramycin (test code=25) Trimethoprim + Sulfamethoxazole (test code=47) BASIC METABOLIC [id number] 06:39:00 Test Item Value Reference Range Comments SODIUM (BEAKER) (test 137 meq/L 136-145 didz=701) POTASSIUM (BEAKER) (test 4.1 meq/L 3.5-5.1 dzyf=149) CHLORIDE (BEAKER) (test 108 meq/L 98-107 nxed=759) CO2 (BEAKER) (test 22 meq/L 22-29 ecwj=323) BLOOD UREA NITROGEN 20 mg/dL 7-21 (BEAKER) (test tgcm=955) CREATININE (BEAKER) (test 0.84 mg/dL 0.57-1.25 dpuq=019) GLUCOSE RANDOM (BEAKER) 93 mg/dL 70-105 (test lrnk=488) CALCIUM (BEAKER) (test 8.3 mg/dL 8.4-10.2 ueit=376) EGFR (BEAKER) (test 77 mL/min/1.73 sq m ESTIMATED GFR IS NOT blsa=2358) ACCURATE CREATININE CLEARANCE IN PREDICTING GLOMERULAR FILTRATION RATE. ESTIMATED GFR IS NOT APPLICABLE FOR DIALYSIS PATIENTS. CBC W/PLT COUNT & AUTO [id number] 06:24:00 Test Item Value Reference Range Comments WHITE BLOOD CELL COUNT (BEAKER) (test vsvj=811) 4.7 K/ L 4.0-10.0 RED BLOOD CELL COUNT (BEAKER) (test fmii=596) 3.48 M/ L 4.00-5.00 HEMOGLOBIN (BEAKER) (test zvwu=344) 10.1 GM/DL 12.0-15.0 HEMATOCRIT (BEAKER) (test vegw=440) 30.3 % 36.0-45.0 MEAN CORPUSCULAR VOLUME (BEAKER) (test jljg=036) 86.9 fL 82.0-99.0 MEAN CORPUSCULAR HEMOGLOBIN (BEAKER) (test 28.9 pg 27.0-33.0 ylzj=198) MEAN CORPUSCULAR HEMOGLOBIN CONC (BEAKER) (test 33.2 GM/DL 32.0-36.0 wbwg=154) RED CELL DISTRIBUTION WIDTH (BEAKER) (test 12.8 % 10.3-14.2 tnfi=631) PLATELET COUNT (BEAKER) (test llas=529) 191 K/CU MM 150-430 MEAN PLATELET VOLUME (BEAKER) (test mlyc=801) 6.9 fL 6.5-10.5 NUCLEATED RED BLOOD CELLS (BEAKER) (test 0 /100 WBC 0-0 hspk=994) NEUTROPHILS RELATIVE PERCENT (BEAKER) (test 45 % htxj=521) LYMPHOCYTES RELATIVE PERCENT (BEAKER) (test 41 % mdvg=176) MONOCYTES RELATIVE PERCENT (BEAKER) (test 8 % dnnx=617) EOSINOPHILS RELATIVE PERCENT (BEAKER) (test 5 % aiyu=937) BASOPHILS RELATIVE PERCENT (BEAKER) (test 1 % iplf=608) NEUTROPHILS ABSOLUTE COUNT (BEAKER) (test 2.13 K/ L 1.80-8.00 jtrq=806) LYMPHOCYTES ABSOLUTE COUNT (BEAKER) (test 1.93 K/ L 1.48-4.50 jgql=407) MONOCYTES ABSOLUTE COUNT (BEAKER) (test 0.36 K/ L 0.00-1.30 zbzo=118) EOSINOPHILS ABSOLUTE COUNT (BEAKER) (test 0.24 K/ L 0.00-0.50 fqmq=824) BASOPHILS ABSOLUTE COUNT (BEAKER) (test 0.03 K/ L 0.00-0.20 yrpw=946) 0.00HEMOGLOBIN [id number] 09:41:00 Test Item Value Reference Range Comments HEMOGLOBIN A1C (BEAKER) (test hkaj=316) 5.9 % 4.3-6.1 BASIC METABOLIC [id number] 07:57:00 Test Item Value Reference Range Comments SODIUM (BEAKER) (test 135 meq/L 136-145 wwph=090) POTASSIUM (BEAKER) (test 4.0 meq/L 3.5-5.1 yebb=635) CHLORIDE (BEAKER) (test 105 meq/L 98-107 rjxt=978) CO2 (BEAKER) (test 23 meq/L 22-29 uptg=386) BLOOD UREA NITROGEN 28 mg/dL 7-21 (BEAKER) (test ehei=980) CREATININE (BEAKER) (test 1.24 mg/dL 0.57-1.25 uybs=517) GLUCOSE RANDOM (BEAKER) 98 mg/dL 70-105 (test vazy=177) CALCIUM (BEAKER) (test 8.1 mg/dL 8.4-10.2 jpcz=967) EGFR (BEAKER) (test 49 mL/min/1.73 sq m ESTIMATED GFR IS NOT myfj=7498) ACCURATE CREATININE CLEARANCE IN PREDICTING GLOMERULAR FILTRATION RATE. ESTIMATED GFR IS NOT APPLICABLE FOR DIALYSIS PATIENTS. CBC W/PLT COUNT & AUTO [id number] 06:57:00 Test Item Value Reference Range Comments WHITE BLOOD CELL COUNT 6.7 K/ L 4.0-10.0 (BEAKER) (test brde=098) RED BLOOD CELL COUNT (BEAKER) 3.58 M/ L 4.00-5.00 (test tjnl=960) HEMOGLOBIN (BEAKER) (test 10.7 GM/DL 12.0-15.0 tcsz=395) HEMATOCRIT (BEAKER) (test 30.8 % 36.0-45.0 eitu=199) MEAN CORPUSCULAR VOLUME 86.2 fL 82.0-99.0 (BEAKER) (test vqbg=971) MEAN CORPUSCULAR HEMOGLOBIN 29.9 pg 27.0-33.0 (BEAKER) (test nzsj=128) MEAN CORPUSCULAR HEMOGLOBIN 34.7 GM/DL 32.0-36.0 CONC (BEAKER) (test pybw=333) RED CELL DISTRIBUTION WIDTH 14.4 % 10.3-14.2 (BEAKER) (test pfdj=909) PLATELET COUNT (BEAKER) (test 204 K/CU MM 150-430 Discordant result compared plqc=306) to previous result; clinical correlation required. MEAN PLATELET VOLUME (BEAKER) 7.1 fL 6.5-10.5 (test hnbf=884) NUCLEATED RED BLOOD CELLS 0 /100 WBC 0-0 (BEAKER) (test vpif=409) NEUTROPHILS RELATIVE PERCENT 61 % (BEAKER) (test qciq=395) LYMPHOCYTES RELATIVE PERCENT 30 % (BEAKER) (test kgcu=719) MONOCYTES RELATIVE PERCENT 6 % (BEAKER) (test zbxl=304) EOSINOPHILS RELATIVE PERCENT 2 % (BEAKER) (test tgxr=384) BASOPHILS RELATIVE PERCENT 1 % (BEAKER) (test mvdq=670) NEUTROPHILS ABSOLUTE COUNT 4.11 K/ L 1.80-8.00 (BEAKER) (test hjzj=488) LYMPHOCYTES ABSOLUTE COUNT 1.98 K/ L 1.48-4.50 (BEAKER) (test jxbu=144) MONOCYTES ABSOLUTE COUNT 0.42 K/ L 0.00-1.30 (BEAKER) (test czhs=579) EOSINOPHILS ABSOLUTE COUNT 0.14 K/ L 0.00-0.50 (BEAKER) (test yovu=874) BASOPHILS ABSOLUTE COUNT 0.04 K/ L 0.00-0.20 (BEAKER) (test mivh=189) 0.00PREGNANCY SCREEN, [id number] 15:12:00 Test Item Value Reference Range Comments TEST URINE (BEAKER) (test gptr=045) Negative URINALYSIS W/ [id number] 15:12:00 Test Item Value Reference Range Comments COLOR (BEAKER) (test srqp=882) Yellow CLARITY (BEAKER) (test hpnl=257) Clear SPECIFIC GRAVITY UA (BEAKER) (test jvtn=450) 1.024 1.001-1.035 PH UA (BEAKER) (test tqzd=149) 5.5 5.0-8.0 PROTEIN UA (BEAKER) (test zopi=038) 20 mg/dL Negative GLUCOSE UA (BEAKER) (test vaco=394) Negative Negative KETONES UA (BEAKER) (test jzte=630) Negative Negative BILIRUBIN UA (BEAKER) (test okhw=805) Negative Negative BLOOD UA (BEAKER) (test sdct=721) Large Negative NITRITE UA (BEAKER) (test oyzo=981) Negative Negative LEUKOCYTE ESTERASE UA (BEAKER) (test jsnj=694) Negative Negative UROBILINOGEN UA (BEAKER) (test oeik=682) 0.2 mg/dL 0.2-1.0 RBC UA (BEAKER) (test catd=295) > /HPF WBC UA (BEAKER) (test txpb=831) 6 /HPF MUCUS (BEAKER) (test mckl=6387) Rare SQUAMOUS EPITHELIAL (BEAKER) (test eqwc=792) 1 /HPF SOURCE(BEAKER) (test nejq=5675) Urine, Voided BASIC METABOLIC [id number] 14:18:00 Test Item Value Reference Range Comments SODIUM (BEAKER) (test 137 meq/L 136-145 omyi=898) POTASSIUM (BEAKER) (test 4.1 meq/L 3.5-5.1 dwry=328) CHLORIDE (BEAKER) (test 103 meq/L 98-107 kqma=230) CO2 (BEAKER) (test 25 meq/L 22-29 cilo=019) BLOOD UREA NITROGEN 28 mg/dL 7-21 (BEAKER) (test cpwf=301) CREATININE (BEAKER) (test 1.10 mg/dL 0.57-1.25 mhwy=731) GLUCOSE RANDOM (BEAKER) 103 mg/dL 70-105 (test xxwj=638) CALCIUM (BEAKER) (test 9.6 mg/dL 8.4-10.2 vaux=404) EGFR (BEAKER) (test mL/min/1.73 sq m INSUFFICIENT CLINICAL DATA sxod=3793) TO CALCULATE ESTIMATED GFR. [id number] 13:51:00 Test Item Value Reference Range Comments PROTIME (BEAKER) (test xazf=176) 13.9 seconds 11.7-14.7 INR (BEAKER) (test birc=773) 1.1 <=5.9 PARTIAL THROMBOPLASTIN TIME (BEAKER) (test 25.6 seconds 22.5-36.0 pbux=748) RECOMMENDED COUMADIN/WARFARIN INR THERAPY RANGESSTANDARD DOSE: 2.0 - 3.0 Includes: PROPHYLAXIS forvenous thrombosis, systemic embolization; TREATMENT for venous thrombosis and/or pulmonary embolus.HIGH RISK: Target INR is 2.5-3.5 for patients with mechanical heart valves.CBC W/PLT COUNT & AUTO [id number] 13:38:00 Test Item Value Reference Range Comments WHITE BLOOD CELL COUNT (BEAKER) (test btbb=447) 8.4 K/ L 4.0-10.0 RED BLOOD CELL COUNT (BEAKER) (test ixct=233) 4.40 M/ L 4.00-5.00 HEMOGLOBIN (BEAKER) (test liod=098) 12.9 GM/DL 12.0-15.0 HEMATOCRIT (BEAKER) (test zbbm=954) 38.1 % 36.0-45.0 MEAN CORPUSCULAR VOLUME (BEAKER) (test iphu=092) 86.6 fL 82.0-99.0 MEAN CORPUSCULAR HEMOGLOBIN (BEAKER) (test 29.2 pg 27.0-33.0 gfhd=174) MEAN CORPUSCULAR HEMOGLOBIN CONC (BEAKER) (test 33.8 GM/DL 32.0-36.0 ncan=872) RED CELL DISTRIBUTION WIDTH (BEAKER) (test 12.8 % 10.3-14.2 aazi=111) PLATELET COUNT (BEAKER) (test ikzb=132) 258 K/CU MM 150-430 MEAN PLATELET VOLUME (BEAKER) (test rooy=270) 6.6 fL 6.5-10.5 NUCLEATED RED BLOOD CELLS (BEAKER) (test 0 /100 WBC 0-0 xonp=739) NEUTROPHILS RELATIVE PERCENT (BEAKER) (test 66 % xphq=913) LYMPHOCYTES RELATIVE PERCENT (BEAKER) (test 27 % shtv=733) MONOCYTES RELATIVE PERCENT (BEAKER) (test 6 % nlha=306) EOSINOPHILS RELATIVE PERCENT (BEAKER) (test 1 % lgzq=738) BASOPHILS RELATIVE PERCENT (BEAKER) (test 0 % vpgf=547) NEUTROPHILS ABSOLUTE COUNT (BEAKER) (test 5.51 K/ L 1.80-8.00 dxry=176) LYMPHOCYTES ABSOLUTE COUNT (BEAKER) (test 2.24 K/ L 1.48-4.50 tuos=270) MONOCYTES ABSOLUTE COUNT (BEAKER) (test 0.53 K/ L 0.00-1.30 sgur=846) EOSINOPHILS ABSOLUTE COUNT (BEAKER) (test 0.05 K/ L 0.00-0.50 ttxa=500) BASOPHILS ABSOLUTE COUNT (BEAKER) (test 0.03 K/ L 0.00-0.20 kgdg=671) 0.00
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
--- OUTSIDE RECORDS SUMMARY | 2019-02-11 09:11 | XMS REPORT | Continuity of Care Document ---
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 administration slowly and deeply into the muscle. Not for use > 4 days MEDICATION WASTE Product Size: 30 mg Product Wasted: ___ mg Inactive 08/23/2018 [facility] Sumatriptan 6 mg, 0.5 mL, Route: SUB-Q, Iftikhar g form: INJ, ONCE, Dosing Weight SP kg, PRN Headache 6-10, Start date: 08/23/18 6:43:00 CDTNotes: For SUBCUTANEOUS use only Inactive 08/23/2018 [facility] Aspirin 81 MG Enteric Coated Tablet 81 mg, 1 tab, Route: PO, Drug form: SP Daily, Dosing Weight 190.909, kg, Start date: 08/22/18 23:00:00 CDT, Duration : 30 day, Stop date: 09/21/18 9:00:00 CDTNotes: Do not crush or chew. (Same As: Ecotrin) SP No Longer Active 08/23/2018 [facility] Saline Flush 0.9% 10 ml , Route: IVP, Drug F orm: INJ, Dosing Weight 190.909, SP PRN, PRN Line Flush, Start date: 08/22/18 22:59:00 CDT, Duration: 30 day, Stop date: 09/21/18 22:58:00 CDTNotes: (Same as: BD Posiflush) No SP Active 08/23/2018 [facility] Sodium Chloride 0.9% IV 1,000 mL 1,000 mL, Rate: 100 ml/hr, Infuse over: 10 SP Route: IV, Dosing Weight 190.909 kg, Total Volume: 1,000, Start date: 22:59:00 CDT, Duration: 30 day, Stop date: 09/21/18 22:58:00 CDT, 3.16, m2 SP No Longer Active 08/23/2018 [facility] Acetaminophen 650 mg, 2 tab, Route: PO, Iftikhar g form: TAB, Q4H, Dosing Weight SP kg, PRN Pain 1-3/Temp > 100.4 F, Start date: 08/22/18 22:59:00 CDT, Duration: 30 day, Stop date: 09/21/18 22:58:00 CDTNotes: Do not exceed 4 gm/day. (Same as: Tylenol) SP No Longer Active SP 08/23/2018 [facility] Aspirin 325 mg, 1 tab , Route: PO, Drug for m: TAB, ONCE, Dosing Weight SP kg, Priority: STAT, Start date: 08/22/18 22:12:00 CDT, Stop date: 08/22/18 22 :12:00 CDTNotes: Take with food. Inactive 08/23/2018 [facility] Morphine 6 mg, Route: IVP, Drug form: SOLN, ONCE, Dosing Weight 190.909, kg, SPPriority: STAT, Start date: 08/22/18 20:44:00 CDT, Stop date: 08/22/18 20:44: 00 CDT Inactive 08/23/2018 [facility] Xylocaine Viscous 2% mucous membrane solution 15 mL, Route: MUCOUS MEM, SP Drug form: SOLN, Start date: 08/22/18 18:56:00 CDT, Stop date: 08/22/18 18:56 :00 CDTNotes: (Same as: Xylocaine) Inactive 08/22/2018 [facility] Al hydroxide/Mg hydroxide/simethicone 30 mL , Route: PO, Drug Form: SUSP, SP Start date: 08/22/18 18:55:00 CDT, Stop date: 08/22/18 18:55:00 CDTNotes: ( aluminum hydroxide- magnesium hyd-simethicone [phone]/5ml 30 ml ud ZENIA) SP Inactive 08/22/2018 [facility] GI cocktail (aluminum hydroxide/magnesium hydroxide/lidocaine/simet hicone) SP mL, Route: PO, Dosing Weight 190.909, kg, ONCE, STAT, Start date: 08/22/18 18 :21:00 CDT, Stop date: 08/22/18 18:21:00 CDT Inactive SP 08/22/2018 [facility] Reglan 10 mg, 2 mL, Route: IVP, Drug form : INJ, ONCE, Dosing Weight 190.909, SPkg, Priority: STAT, Start date: 08/22/18 16:06:00 CDT, Stop date: 08/22/18 16: 06:00 CDTNotes: (Same as: Reglan) Inactive 08/22/2018 [facility] NS (Bolus) IV 1,000 mL , 1,000 ml/hr, Infuse Over: 1 hr, Route: IV, 1,000, SP form: INJ, ONCE, Priority: STAT, Dosing Weight 190.909 kg, Start date: 16:06:00 CDT, Stop date: 08/22/18 16:06:00 CDT Inactive 08/22 [facility] ketOROLAC 30 mg/mL injectable solution 30 m g, 1 mL, Route: IVP, Drug form: SP ONCE, Dosing Weight 190.909, kg, Priority: STAT, Start date: 08/22/18 16:06: 00 CDT, Stop date: 08/22/18 16:06:00 CDTNotes: (Same as:Toradol) IV bolus must be given >15 seconds. Give IM administration slowly and deeply into the muscle. Not for use > 4 days * MEDICATION WASTE Product Size: 30 mg Product Wasted: ___ mg 05/2018 [facility] Benadryl 12.5 mg, 0.25 mL, Route: IVP, Drug form: INJ, ONCE, Dosing Weight SP kg, Priority: STAT, Start date: 08/22/18 16:06:00 CDT, Stop date: 08/22/18 16 :06:00 CDTNotes: (Same as: Benadryl) Inactive 08/22/2018 [facility] Acetaminophen 1,000 mg , 2 tab, Route: PO, D rug form: TAB, ONCE, Dosing SP 190.909, kg, Start date: 08/22/18 16:06:00 CDT, Stop date: 08/22/18 16:06:00 CDTNotes: Max acetaminophen 4000 mg/day (4 gm/day). (Same as: Tylenol Extra Strength) SP Inactive 08/22/2018 [facility] Saline Flush 0.9% 10 mL , Route: IVP, Drug F orm: INJ, Dosing Weight 188.636, SP PRN, PRN Line Flush, Start date: 08/22/18 16:05:00 CDT, Duration: 30 day, Stop date: 09/21/18 16:04:00 CDTNotes: (Same as: BD Posiflush) No SP Active 08/22/2018 [facility] ketOROLAC 15 mg/mL injectable solution 15 m g, Route: IVP, Drug form: INJ, SP Dosing Weight 188.636, kg, Priority: STAT, Start date: 08/18/18 3:48:00 CDT, Stop date: 08/18/18 3:48:00 CDT Inactive 08/18/2018 [facility] {74 (apixaban 5 MG Oral Tablet [Eliquis]) } Pack [ Eliquis 30-Day Starter Pack] SP See Instructions, 2 tablets BID x 7 days then 1 ta blet BID thereafter, # 50 tab, 0 Refill(s) SP Active 08/18/2018 [facility] Ondansetron 4 MG Disintegrating Tablet [Zofran] 4 mg=1 tab, PO, TID, PRN SP and Vomiting, Dissolve tab under tongue, # 15 tab, 0 Refill(s) SP Active [facility] {6 (Azithromycin 250 MG Oral Tablet [Zithromax] ) } Pack [Z-PAKS] See SP Take 2 tablets by mouth the first day then 1 tablet by mouth days 2-5., X 5 day, # 6 tab, 0 Refill(s) Active 08/18/2018 [facility] Omnipaque 300 injectable solution 100 mL, R oute: IVP, Dosing Weight 188.636, SPkg, ONCALL, GFR > 45 mL/min, STAT, Start date: 08/18/18 2:12:00 CDT, Duration: 1 doses or times Inactive 08/18/2018 [facility] sucralfate 1 g oral tablet 1 gm=1 tab, PO, QID, # 28 tab, 0 Refill(s) SP Active 08/12/2018 [facility] Famotidine 20 MG Oral Tablet [Pepcid] 20 mg =1 tab, PO, BID, # 10 tab, 0 SP Active 08/12/2018 [facility] Al hydroxide/Mg hydroxide/simethicone 30 mL , Route: PO, Drug Form: SUSP, SP STAT, Start date: 08/12/18 4:32:00 CDT, Stop date: 08/12/18 4:32:00 CDTNotes : (aluminum hydroxide-magnesium hyd-simethicone [phone]/5ml 30 ml ud ZENIA) SP Inactive [facility] Xylocaine Viscous 2% mucous membrane solution 15 mL, Route: PO, ONCE, Drug SP SOLN, Start date: 08/12/18 4:32:00 CDT, Stop date: 08/12/18 4:32:00 CDT, STATNotes: (Same as: Xylocaine) Inactive 08/12/2018 [facility] GI cocktail (aluminum hydroxide/magnesium hydroxide/lidocaine/simet hicone) SP mL, Route: PO, Dosing Weight 190.909, kg, ONCE, STAT, Start date: 08/12/18 4: 30:00 CDT, Stop date: 08/12/18 4:30:00 CDT Inactive 08/12/2018 [facility] Omnipaque 300 injectable solution 100 mL, R oute: IVP, Dosing Weight 190.909, SPkg, ONCE, GFR > 45 mL/min, STAT, Start date: 08/12/18 4:14:00 CDT, Stop date: 08/12/18 4:14:00 CDT Inactive 08/12/2018 [facility] Acetaminophen 325 MG / Hydrocodone Bitartrate 10 M G Oral Tablet [Manning 10/325] SP 1 tab, Route: PO, Drug Form: TAB, Dosing Weight 19 0.909, kg, ONCE, STAT, Start date: 08/12/18 SP CDT, Stop date: 08/12/18 3:49:00 CDTNotes: Do not exceed 4gm/day of acetaminophen. (Same as: Manning 325/10) Inactive 08/12/2018 [facility] Ondansetron 4 mg, 2 mL , Route: IVP, Drug fo rm: INJ, ONCE, Dosing Weight SP kg, Priority: STAT, Start date: 08/12/18 0:41:00 CDT, Stop date: 08/12/18 0: 41:00 CDTNotes: (Same as: Justin) MEDICATION WASTE Product Size: 4 mg Product Wasted: ___ mg Inactive 08/12/2018 [facility] Morphine 4 mg, 1 mL, Route: IVP, Drug form: SOLN, ONCE, Dosing Weight SP kg, Priority: STAT, Start date: 08/12/18 0:41:00 CDT, Stop date: 08/12/18 0: 41:00 CDTNotes: (Same as: MORPhine Sulfate) Inactive 08/12/2018 [facility] Saline Flush 0.9% 10 mL , Route: IVP, Drug F orm: INJ, Dosing Weight 190.909, SP PRN, PRN Line Flush, Start date: 08/12/18 0:41:00 CDT, Duration: 30 day, Stop date: 09/11/18 0:40:00 CDTNotes: (Same as: BD Posiflush) I nactive 08/12 [facility] Isosorbide 30 mg, 1 tab , Route: PO, Drug fo rm: ERTAB, QAM, Dosing Weight SP kg, Start date: 07/31/18 9:00:00 CDT, Duration: 30 day, Stop date: 08/29/18 9 :00:00 CDTNotes: (Same as:Imdur) "Do Not Crush" Take on empty stomach/ full glass of water. Do not crush No Longer Active 07/31/2018 [facility] Hydrochlorothiazide 25 MG / Lisinopril 20 MG Oral Tablet 1 tab, Route: PO, SP Form: TAB, Dosing Weight 200.142, kg, Daily, Start date: 07/31/18 9:00:00 CDT , Duration: 30 day, Stop date: 08/29/18 9:00:00 CDT No Longer A ctive 07/31 [facility] lisinopril 20 mg, 1 tab , Route: PO, Drug fo rm: TAB, Daily, Start date: SP 9:00:00 CDT, Duration: 30 day, Stop date: 08/29/18 9:00:00 CDTNotes: (Same as : Prinivil, Zestril) No Longer Active 07/31/2018 [facility] Escitalopram 20 mg, 2 tab, Route: PO, Drug form: TAB, Daily, Dosing Weight SP kg, Start date: 07/31/18 9:00:00 CDT, Duration: 30 day, Stop date: 08/29/18 9 :00:00 CDTNotes: (Same as: Lexapro) No Longer Active 07/31/2018 [facility] hydrochlorothiazide 25 mg oral tablet 25 mg , 1 tab, Route: PO, Drug form: SP Daily, Start date: 07/31/18 9:00:00 CDT, Duration: 30 day, Stop date: 9:00:00 CDTNotes: (Same as: Hydrodiuril) With food. No Longe r Active 02/2019 [facility] metoprolol tartrate 25 mg, 1 tab, Route: PO , Drug form: TAB, Q12H, Dosing SP 200.142, kg, Start date: 07/30/18 21:00:00 CDT, Duration: 30 day, Stop date: 08/29/18 9:00:00 CDTNotes: (Same as: Lopressor) Inactive 07/31/2018 [facility] Carafate 1 gm, 1 tab, Route: PO, Drug form: TAB, BID, Dosing Weight 200.142, SPkg, Start date: 07/30/18 17:00:00 CDT, Duration: 30 day, Stop date: 08/29/18 9 :00:00 CDTNotes: May interfere w/enteral feeds - Take 1 hr before or 2 hr after antacids, dairy pdt , meals & minerals - On empty stomach. For patients unable to swallow tablet, dissolve in 10mL - 30mL of water or juice and stir before giving. (Same As: Carafate) 01/2019 [facility] tramadol hydrochloride 50 MG Oral Tablet 50 mg, 1 tab, Route: PO, Drug form: SPTAB, TID, Dosing Weight 200.142, kg, Start date: 07/30/18 17:00:00 CDT, Duration: 30 day, Stop date: 08/29/18 13:00:00 CDTNotes: Not to exceed 400mg/day. (Same As: Ultram) Inactive 07/30/2018 [facility] Xarelto 20 mg, 1 tab, Route: PO, Drug form : TAB, QPM, Dosing Weight 200.142, SPkg, Start date: 07/30/18 17:00:00 CDT, Duration: 30 day, Stop date: 08/28/18 17:00:00 CDTNotes: (Same as: Xarelto) Administer with food Olga ctive 07/30 [facility] Protonix 40 mg, 1 tab, Route: PO, Drug form : ECTAB, Before Dinner, Dosing SP 200.142, kg, Start date: 07/30/18 16:30:00 CDT, Duration: 30 day, Stop date: 08/28/18 16:30:00 CDTNotes: Tablet should not be chewed or crushed. (Same as: Protonix) SP Inactive 07/30/2018 [facility] Amoxicillin 875 MG / Clavulanate 125 MG Oral Tablet [Augmentin 875- mg] 1 SP PO, Q12H, X 7 day, # 14 tab, 0 Refill(s), Pharmacy: [id number] Active 07/30/2018 [facility] SUMAtriptan 50 mg oral tablet 50 mg=1 tab, PO, ONCE, PRN Headache, # 9 tab, SP Refill(s), Pharmacy: [id number] SP 01/2019 [facility] hydrOXYzine hydrochloride 50 mg, 2 tab, Rou te: PO, Drug form: TAB, ONCE, SP Weight 200.142, kg, Start date: 07/30/18 14:50:00 CDT, Stop date: 07/30/18 14 :50:00 CDTNotes: (Same as: Atarax) Avoid alcohol. Inactive 07/30 [facility] ketOROLAC 15 mg/mL injectable solution 15 m g, 0.5 mL, Route: IVP, Drug form: SPINJ, ONCE, Dosing Weight 200.142, kg, Start date: 07/30/18 14:14:00 CDT, Stop date: 07/30/18 14:14:00 CDTNotes: (Same as:Toradol) IV bolus must be given >15 seconds. Give IM administration slowly and deeply into the muscle. Not for use > 4 days MEDICATION WASTE Product Size: 30 mg Product Wasted: ___ mg Inactive 07/30/2018 [facility] Sumatriptan 100 mg, 1 tab, Route: PO, Drug form: TAB, ONCE, Dosing Weight SP kg, PRN Headache 7-10, Start date: 07/30/18 10:21:00 CDTNotes: (Same as: Imirtex) Inactive 07/30/2018 [facility] Acetaminophen 325 MG / butalbital 50 MG / Caffeine 40 MG Oral Table t 1 tab, SP PO, Drug Form: TAB, Dosing Weight 200.142, kg, Q6H, PRN Headache 1-5, Start date: 07/30/18 10:21:00 CDT, Duration: 30 day, Stop date: 08/29/18 10:20:00 CDTNotes: (gslnvvfavxkbf-wkcwowbgqw-ppnvynkh 325-50-40mg) Do not exceed 4 gm/day of acetaminophen. (Same as: Esgic, Fioricet) Inactive 07/30/2018 [facility] Amoxicillin 875 MG / Clavulanate 125 MG Oral Tablet [Augmentin 875- mg] 1 SP Route: PO, Drug Form: TAB, Dosing Weight 187.682, kg, Q12H, Start date: 07/30 9:00:00 CDT, Duration: 30 day, Stop date: 08/28/18 21:00:00 CDTNotes: With food. (Same as: Augmentin 875) Inactive 07/30/2018 [facility] heparin 5,000 unit, 1 mL, Route: SUB-Q, Dr ug form: INJ, Q12H, Dosing Weight SP kg, Start date: 07/30/18 9:00:00 CDT, Duration: 30 day, Stop date: 08/28/18 21:00:00 CDTNotes: porcine heparin Inactive 07/30/2018 [facility] Acetaminophen 325 MG / Hydrocodone Bitartrate 5 MG Oral Tablet [Manning 5/325] SP 1 tab, Route: PO, Drug Form: TAB, Dosing Weight 18 7.682, kg, Q6H, PRN Pain Score 6-10, Start date: SP07/30/18 1:20:00 CDT, Duration: 1 day, Stop date: 07/31/18 1:19:00 CDTNotes: ( Same as: Manning 325/5) Do not exceed 4gm/day of acetaminophen. 01/2019 [facility] hydrOXYzine hydrochloride 50 mg, PO, ONCE, 0 Refill(s) Active 07/30/2018 [facility] atorvastatin 40 mg oral tablet 40 mg=1 tab, PO, Daily, 0 Refill(s) Active 07/30/2018 [facility] Hydrochlorothiazide 25 MG / Lisinopril 20 MG Oral Tablet 1 tab, PO, Daily, # SP90 tab, 1 Refill(s) Active 07/30/2018 [facility] isosorbide mononitrate 30 mg oral tablet, extended release 30 mg=1 tab, PO, SP 0 Refill(s) Active 07/30/2018 [facility] rivaroxaban 20 MG Oral Tablet [Xarelto] 20 mg=1 tab, PO, QPM, 0 Refill(s) Active 07/30/2018 [facility] escitalopram 20 mg oral tablet 20 mg=1 tab, PO, Daily, 0 Refill(s) Active 07/30/2018 [facility] pantoprazole 40 mg, PO, Daily, 0 Refill(s) Active [facility] tramadol hydrochloride 50 MG Oral Tablet 50 mg=1 tab, PO, TID, 0 Refill(s) Active 07/30/2018 [facility] metoprolol tartrate 25 mg oral tablet 25 mg =1 tab, PO, BID, 0 Refill(s) Active 07/30/2018 [facility] NS 1,000 mL 1,000 mL, Rate: 100 ml/hr, Infu se over: 10 hr, Route: IV, Dosing SPWeight 187.682 kg, Total Volume: 1,000, Start date: 07/29/18 23:33:00 CDT, Duration: 30 day, Stop date: 08/28/18 23:32:00 CDT, 3.14, m2 No Lo nger 01/2019 [facility] Nitroglycerin 0.4 mg, 1 tab, Route: SL, Iftikhar g form: TAB, Q5Min, Dosing Weight SP187.682, kg, PRN Chest Pain, Start date: 07/29/18 23:31:00 CDT, Duration: 30 day, Stop date: 08/28/18 23:30:00 CDTNotes: (Same as:Nitroquick, Nitrostat) "Do Not Crush& quot; Sublingual tablet No Longer Active 07/30/2018 [facility] Morphine 2 mg, 0.5 mL, Route: IVP, Drug for m: SOLN, Q4H, Dosing Weight SP kg, PRN Chest Pain, Start date: 07/29/18 23:31:00 CDT, Duration: 30 day, Stop date: 08/28/18 23:30:00 CDTNotes: (Same as:MORPhine Sulfate) No Active 07/30/2018 [facility] Ondansetron 4 mg, 2 mL , Route: IVP, Drug fo rm: INJ, Q8H, Dosing Weight SP kg, PRN Nausea & Vomiting, Start date: 07/29/18 23:31:00 CDT, Duration: 30 day, Stop date: 08/28/18 23:30:00 CDTNotes: (Same as: Zofrsen) MEDICATION WASTE Product Size: 4 mg Product Wasted: ___ mg No Longer Active 07/30/2018 [facility] Glucagon 1 mg, Route: IM, Drug form: PDR/IN J, PRN, Dosing Weight 187.682, SP PRN Blood Glucose Results, Start date: 07/29/18 23:31:00 CDT, Duration: 30 day, Stop date: 08/28/18 23:30:00 CDT No Longer Active 07/30/2018 [facility] Dextrose 50% Syringe 25 gm, 50 mL, Route: 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, Drug Form: INJ, Dosing Weight SP187.682, kg, PRN, PRN Blood Glucose Results, Start date: 07/29/18 23:31:00 CDT , Duration: 30 day, Stop date: 08/28/18 23:30:00 CDT No Longer Active 07/30 [facility] Dilaudid 0.5 mg, 0.25 mL, Route: IVP, Drug form: INJ, ONCE, Dosing Weight SP kg, Priority: STAT, Start date: 07/29/18 22:16:00 CDT, Stop date: 07/29/18 22 :16:00 CDTNotes: Same as Dilaudid No Longer Active SP 07/30/2018 [facility] Hydromorphone 0.5 mg, Route: IVP, ONCE, Dos ing Weight 187.682, kg, Priority: SPSTAT, Start date: 07/29/18 22:08:00 CDT, Stop date: 07/29/18 22:08:00 CDT SP Inactive SP 07/30/2018 [facility] Nitroglycerin 0.4 MG Sublingual Tablet 0.4 mg, 1 tab, Route: SL, Drug form: SP ONCE, Dosing Weight 187.682, kg, Priority: STAT, Start date: 07/29/18 21:44: 00 CDT, Stop date: 07/29/18 21:44:00 CDTNotes: (Same as:Nitroquick, Nitrostat) "Do Not Crush& quot; Sublingual tablet Inactive SP 07/30/2018 [facility] Amoxicillin 875 MG / Clavulanate 125 MG Oral Tablet 1 tab, Route: PO, Drug SP TAB, Dosing Weight 187.682, kg, ONCE, STAT, Start date: 07/29/18 21:38:00 CDT , Stop date: 07/29/18 21:38:00 CDT Inactive SP 07/30/2018 [facility] Amoxicillin 875 MG / Clavulanate 125 MG Oral Tablet [Augmentin 875- mg] 875 SP Route: PO, Drug Form: TAB, Dosing Weight 187.682, kg, ONCE, Start date: 07/29 21:06:00 CDT, Stop date: 07/29/18 21:06:00 CDTNotes: With food. (Same as: Augmentin 875) SP Inactive SP 07/30/2018 [facility] Aspirin 81 MG Chewable Tablet 324 mg, 4 tab , Route: CHEW, Drug form: SP ONCE, Dosing Weight 187.682, kg, Priority: STAT, Start date: 07/29/18 20:52: 00 CDT, Stop date: 07/29/18 20:52:00 CDTNotes: Take with food. 01/2019 [facility] Ondansetron 4 mg, 2 mL , Route: IVP, Drug fo rm: INJ, ONCE, Dosing Weight SP kg, Priority: STAT, Start date: 07/29/18 20:52:00 CDT, Stop date: 07/29/18 20 :52:00 CDTNotes: (Same as: Zofran) MEDICATION WASTE Product Size: 4 mg Product Wasted : ___ mg Inactive 07/30/2018 [facility] Morphine 4 mg, 1 mL, Route: IVP, Drug form: SOLN, ONCE, Dosing Weight SP kg, Priority: STAT, Start date: 07/29/18 20:52:00 CDT, Stop date: 07/29/18 20 :52:00 CDTNotes: (Same as:MORPhine Sulfate) Inactive 07/30/2018 [facility] Saline Flush 0.9% 10 mL , Route: IVP, Drug F orm: INJ, kg, PRN, PRN Line SP Start date: 07/29/18 19:35:00 CDT, Duration: 30 day, Stop date: 08/28/18 19: 34:00 CDTNotes: (Same as: BD Posiflush) No Longer Active 07/30/2018 [facility] Lisinopril & Hydrochlorothiazi * ( Lisinopril/Hctz 20/25 Mg *) 1Tab Tab Once SPDaily for Hypertension ORAL Active [facility] 12/04/2017 [facility] SP Lovastatin (Lovastatin 20 Mg (Mevacor) *) 20 Mg Tab Once Daily At Bedtime Hld ORAL Active [facility] 12/04/2017 [facility] Metoprolol Tartrate 25 Mg Tab Twice A Day f or Hypertension ORAL Active [facility] 12/04/2017 [facility] Rivaroxaban (Xarelto *) 10 Mg Tab Twice A D ay for Pe ORAL Active [facility] 12/04/2017 [facility] Rivaroxaban (Xarelto *) 20 Mg Tab, 20 Mg Oral Once Daily for Pe SP ORAL Active 12/04/2017 [facility] Enalapril Maleate/Hctz 10/25 Mg (Enalapril/Hctz 10 /25 Mg) 1 Tab Tab, 1 Tab Oral SP Once Daily ORAL Active SP 12/02/2017 [facility] Omeprazole (Omeprazole 40 Mg *) 40 Mg Cap, 40 Mg Oral Once Daily SP ORAL Active 10/21/2017 [facility] Tramadol Hcl (Ultram 50 Mg*) 50 Mg Tab, 50 Mg Oral Three Times A Day SP ORAL Active 10/21/2017 [facility] Tramadol Hcl (Ultram 50 Mg *) 50 Mg Tab, 50 Mg Oral Three Times A Day SP ORAL Active SP 10/21/2017 [facility] Acetaminophen W/ Codeine #3 * (Tylenol Codeine #3 300MG/30MG *) 1 Tab Tab, 1 Tab Oral SP Three Times Daily As Needed for Pain ORAL SP Active [facility] 10/01/2016 [facility] Levofloxacin (Levaquin 500 Mg*) 500 Mg Tab, 1 Tab Oral Daily for Infection SP ORAL Active SP [facility] 10/01/2016 [facility] Phenazopyridine Hcl (Pyridium 200 Mg*) 200 Mg Tab, 1 Tab Oral Three Times A SP for Burning ORAL Active SP [facility] 10/01/2016 [facility] Tamsulosin Hcl (Tamsulosin Hcl 0.4 Mg (Flomax) *) 0.4 Mg Cap, 1 Cap Oral SP for Stent Pain ORAL Active [facility] 2016 [facility] Levofloxacin (Levaquin 500 Mg *) 500 Mg Tab, 1 Tab Oral Daily for Infection SP ORAL Active [facility] 10/01/2016 [facility] Enalapril Maleate/Hctz (Vaseretic 10/25 Mg *) 1 Ea Tab, 2 Tab Oral Daily SP ORAL Active SP 09/16/2016 [facility] Metoprolol Succinate (Toprol Xl *) 50 Mg Tab, 1 Tab Oral Daily SP ORAL Active 09/16/2016 [facility] Rivaroxaban (Xarelto *) 20 Mg Tab, 1 Tab Oral Daily SP Active 09/16/2016 [facility] Pantoprazole Sodium * (Pantoprazole Sodium Ec 40 Mg *) 40 Mg Tab Once Daily SP ORAL Active [facility] SP Allergies, Adverse Reactions, Alerts Substance Category Reaction POS Reaction type Status POS Reported Comments Source POS Losartan ([id number]) ACH ING, DIFFICULTY BREATHING SP Severe Allergy to Substance SP Active 12/02/2017 [facility] Immunizations No Data Provided for This Section POS Results Order Name Results Value POS Range Date Interpretation POS Comments Source POS White blood cell count 5.2 4.0 - 11.5 09/21/2018 [facility] RBC count 4.98 3.80 - 5.20 [facility] Hemoglobin 11.4 10.5 - 15.7 09/21/2018 [facility] Hematocrit 39.3 34.0 - 50.0 09/21/2018 [facility] MCV (mean corpuscular volume) determination 78.9 86 SP- 100 09/21/2018 [facility] Mean corpuscular hemoglobin ( MCH) determination 22 .9 SP 26.2 - 33.4 09/21/2018 [facility] Mean corpuscular hemoglobin concentration (MCHC) d etermination 29.0 30 - 34 09/21/2018 [facility] RBC distribution width coefficient of variation 23 .9 12.0 - 15.5 09/21/2018 [facility] Platelet count 304 165 - 4 50 09/21/2018 [facility] Mean platelet volume 9.2 9.4 - 12.6 09/21/2018 [facility] Neutrophils seg % bld 51.6 44.4 - 80.1 09/21/2018 [facility] Immature granulocyte percentage 0.2 0.0 - 0.4 09/21/2018 [facility] SP Lymphocyte % 36.5 10.0 - 50.0 09/21/2018 [facility] Monocyte % 6.2 3.6 - 12.0 [facility] Eosinophil % 4.7 0.0 - 5.4 [facility] Basophil % 0.8 0.1 - 1.2 [facility] Absolute neutrophil count 2.66 1.56 - 6.13 09/21/2018 [facility] SP Immature granulocyte count 0.0 0.0 - 0.03 09/21/2018 [facility] SP Absolute lymphocyte count 1.9 1 .18 - 3.74 09/21/2018 [facility] SP Absolute monocyte count 0.32 0. 24 - 0.86 09/21/2018 [facility] Absolute eosinophil count 0.24 0.04 - 0.36 09/21/2018 [facility] Absolute basophil count 0.04 0. 01 - 0.08 09/21/2018 [facility] Nucleated red blood cell percentage 0 0 - 0.2 09/21/2018 [facility] Absolute NRBC count 0 0 [facility] D-dimer 1118 <500 [facility] Glucose measurement 134 74 - 10 6 09/21/2018 [facility] Serum or plasma urea nitrogen measurement (mass/vo lume) 12 SP - 09/21/2018 [facility] SP Osmolality ser 281 280 - 3 00 09/21/2018 [facility] Creatinine blood 0.6 0.50 - 0.90 09/21/2018 [facility] Estimated glomerular filtration rate (GFR) determi nation >60.00 09/21/2018 [facility] Serum or plasma urea nitrogen/ creatinine ratio 20. 0 SP 12 - 09/21/2018 [facility] SP Sodium level 140 135 - 145 [facility] Body fluid potassium measurement 4.3 3.5 - 5.2 09/21/2018 [facility] SP Chloride measurement 100 98 - 1 08 09/21/2018 [facility] CO2 27 21 - 32 09/21/[facility] An[facility] gap measurement 17.3 12 - 20 09/21/2018 [facility] Calcium level 9.9 8.6 - 1 0.0 09/21/2018 [facility] Total protein 8.0 6.6 - 8 .7 09/21/2018 [facility] Albumin 3.9 3.5 - 5.2 [facility] Globulin ser 4.1 [facility] Albumin-globulin ratio ser 1.0 >1.0 09/21/2018 [facility] Bilirubin total 0.4 0.0 - 1 .2 09/21/2018 [facility] AST 20 15 - 32 09/21/2018 [facility] ALT (SGPT) ser/plas 25 0 - 33 09/21/2018 [facility] ALP ser/plas 117 35 - 105 [facility] Serum or plasma thyroid stimulating hormone (TSH) measurement 1.05 SP 0.36 - 3.74 09/21/2018 [facility] Creatine kinase measurement 37 20 - 180 09/21/2018 [facility] Troponin I ser/plas <0.30 0.0 - 0.5 09/21/2018 [facility] Serum or plasma creatine kinase MB (CK-MB) measurement by immunoassay SP <1.0 0.0 - 3.6 09/21/2018 [facility] SP Color of Urine by Auto LIGHT YELLOW 09/21/2018 [facility] Urine appearance determination CLEAR CLEAR 09/21/2018 [facility] SP Glucose [Presence] in Urine by Automated test stri p NEGATIVE SP NEGATIVE 09/21/2018 [facility] SP Urine total bilirubin measurement (mass/volume) NE GATIVE SP NEGATIVE 09/21/2018 [facility] SP Ketones [Mass/volume] in Urine by Automated test s trip NEGATIVE SP NEGATIVE 09/21/2018 [facility] SP Specific gravity of Urine by Automated test strip 1.013 SP 1.003 - 1.030 09/21/2018 [facility] Urine blood detection by dipstick NEGATIVE NEGATIVE 09/21/2018 [facility] Urine pH measurement 7.000 5 - 9 SP 09/21/2018 [facility] Urine protein test by dipstick NEGATIVE NEGATIVE 09/21/2018 [facility] Urine urobilinogen detection NORMAL 0.2 - 1.0 09/21/2018 [facility] SP Nitrite ur dipstick NEGATIVE NE GATIVE SP 09/21/2018 [facility] Urine leukocyte esterase detection by automated te st strip NEGATIVE SP NEGATIVE 09/21/2018 [facility] RBC count ur auto <1 0 - 5 [facility] Leukocytes [#/area] in Urine sediment by Automated count <1 0 - 5 09/21/2018 [facility] Epithelial cells detection in urine sediment by li ght microscopy <5 SP 0 - 5 09/21/2018 [facility] Automated urine sediment casts (number/area) None Detected SP None Detect 09/21/2018 [facility] Urine Culture Reflexed NO [facility] CARDIAC ENZYMES Troponin-I <0.02 0.00 - 0.40 08/25/2018 [facility] ENDOCRINOLOGY Prolactin Lvl 33.0 08/24/2018 [facility] IMMUNOLOGY IGF I 140 69 - 227 08/24/2018 Result Comment: Performed At: [facility]
[address] [place], [place] [id number]
Avery Peterson MD Ph:[phone] [facility] ENDOCRINOLOGY FSH 5.3 SP [facility] ENDOCRINOLOGY LH 1.93 SP [facility] SPECIAL CHEMISTRY ACTH Lvl 41 0 - 46 08/23/2018 [facility] CHEM PANEL eGFR 104 SP Result Comment : The eGFR is calcul ated using the SPCKD-EPI formula. In most young, healthy individuals the eGFR will be >90 mL /min/1.73m2. The eGFR declines with age. An eGFR of 60-89 may be normal in some populations, particularly the elderly, for whom the CKD-EPI formula has not been extensively validated. Use of the eGFR is not recommended in the following populations:

Individuals with unstable creatinine concentrations,including patients and those with serious co-morbid conditions.
<br/ >Patients with extremes in muscle mass or diet.

The data above are obtained from the National Kidney Disease Education Program (NKDEP) which additionally recommends that when the eGFR is used in patients with extremes of body mass index for purposes of drug dosing, the eGFR should be multiplied by the estimated BMI. [facility] CHEM PANEL Calcium Lvl 8.7 8.5 - 10.5 SP 08/23/2018 [facility] CHEM PANEL Sodium Lvl 137 135 - 145 SP 08/23/2018 [facility] CHEM PANEL Chloride Lvl 104 95 - 109 08/23/2018 [facility] CHEM PANEL Potassium Lvl 4.1 3.5 - 5.1 08/23/2018 [facility] CHEM PANEL AGAP 11.1 10.0 - 20.0 08/23/2018 [facility] CHEM PANEL CO2 26 24 - 3 2 SP [facility] CHEM PANEL BUN 15 7 - 22 SP [facility] CHEM PANEL Creatinine Lvl 0.73 0.50 - 1.40 08/23/2018 [facility] CHEM PANEL Glucose Lvl 86 70 - 99 08/23/2018 [facility] ENDOCRINOLOGY Prolactin Lvl 31.4 08/23/2018 [facility] HEMATOLOGY MPV 7.3 7.4 - 10.4 08/23/2018 [facility] HEMATOLOGY MCV 69.5 80.0 - 98.0 08/23/2018 [facility] HEMATOLOGY Hct 27.8 36.0 - 48.0 08/23/2018 [facility] HEMATOLOGY MCHC 31.5 32.0 - 36.0 08/23/2018 [facility] HEMATOLOGY MCH 21.9 27.0 - 31.0 08/23/2018 [facility] HEMATOLOGY Platelet 267 133 - 450 08/23/2018 [facility] HEMATOLOGY RDW 18.2 11.5 - 14.5 08/23/2018 [facility] HEMATOLOGY WBC 5.3 3.7 - 10.4 08/23/2018 [facility] HEMATOLOGY RBC 4.00 4.20 - 5.40 08/23/2018 [facility] HEMATOLOGY Hgb 8.8 12.0 - 16.0 SP 08/23/2018 [facility] HEMATOLOGY Segs 51.8 45.0 - 75.0 08/23/2018 [facility] HEMATOLOGY Monocytes 7.1 2.0 - 12.0 08/23/2018 [facility] HEMATOLOGY Lymphocytes 37.6 20.0 - 40.0 08/23/2018 [facility] HEMATOLOGY Eosinophils 3.0 0.0 - 4.0 08/23/2018 [facility] HEMATOLOGY Plt Morph Normal SP (08/23/18 5:34 AM) Normal 06/2018 [facility] HEMATOLOGY Neutrophils # 2.8 1.5 - 8.1 08/23/2018 [facility] HEMATOLOGY Monocytes # 0.4 0.0 - 0.8 08/23/2018 [facility] HEMATOLOGY Lymphocytes # 2.0 1.0 - 5.5 08/23/2018 [facility] HEMATOLOGY Eosinophils # 0.2 0.0 - 0.5 08/23/2018 [facility] HEMATOLOGY Basophils 0.5 0.0 - 1.0 08/23/2018 [facility] HEMATOLOGY Hypochrom 1+ SP (08/23/18 5:34 AM) None Seen 08/23/2018 [facility] HEMATOLOGY Microcyte 2+ SP*ABN* (08/23/18 5:34 AM) None Seen 08/23/2018 [facility] LIPIDS VLDL 28 08/23/2018 [facility] LIPIDS LDL (Calculated) 130 < =99 mg/dL 08/23/2018 [facility] LIPIDS Chol 196 <=199 mg/ dL [facility] LIPIDS Trig 141 <=149 mg/ dL [facility] LIPIDS HDL 38 >=61 mg/dL [facility] LIPIDS CHD Risk 5.16 3.90 - 5.80 08/23/2018 [facility] SPECIAL CHEMISTRY Hgb A1C 6.2 <=5.6 % 08/23/2018 [facility] URINE AND STOOL UA Bacteria Few /HPF None Seen /HPF SP 08/23/2018 [facility] URINE AND STOOL UA Sq Epi Many /LPF Few /LPF SP 08/23/2018 [facility] URINE AND STOOL UA WBC 2 0 - 5 SP 08/23/2018 [facility] URINE AND STOOL UA RBC 1 0 - 2 08/23/2018 [facility] URINE AND STOOL UA Hyal Cast 3 0 - 2 SP 08/23/2018 [facility] URINE AND STOOL UA Mucus Few /LPF None Seen /LPF SP 08/23/2018 [facility] URINE AND STOOL UA Amorph Liat Occasional /HPF None SP /HPF 08/23/2018 [facility] URINE AND STOOL UA Color Yellow SP*NA* (08/23/18 5:00 AM) Yellow 06/2018 [facility] URINE AND STOOL UA Turbidity Slight SP*ABN* (08/23/18 5:00 AM) Clear 0606/2018 [facility] URINE AND STOOL UA Nitrite Negative SP (08/23/18 5:00 AM) Negative 0 08/23/2018 [facility] URINE AND STOOL UA Leuk Est Trace SP*ABN* (08/23/18 5:00 AM) Negative 0 08/23/2018 [facility] URINE AND STOOL UA Spec Grav 1.016 <=1.030 08/23/2018 [facility] URINE AND STOOL UA pH 5.0 5.0 - 8.0 08/23/2018 [facility] URINE AND STOOL UA Protein Negative SP (08/23/18 5:00 AM) Negative 0 08/23/2018 [facility] URINE AND STOOL UA Ketones Negative SP*NA* (08/23/18 5:00 AM) Negative 0 08/23/2018 [facility] URINE AND STOOL UA Bili Negative SP*NA* (08/23/18 5:00 AM) Negative 0 08/23/2018 [facility] URINE AND STOOL UA Blood Negative SP (08/23/18 5:00 AM) Negative 0 08/23/2018 [facility] URINE AND STOOL UA Urobilinogen <=1.0 mg/dL 0.1 - SP 08/23/2018 [facility] URINE AND STOOL UA Glucose Negative SP*NA* (08/23/18 5:00 AM) Negative 0 08/23/2018 [facility] CARDIAC ENZYMES Total CK 29 12 - 191 SP 08/22/2018 [facility] CARDIAC ENZYMES Troponin-I <0.02 0.00 - 0.40 SP 08/22/2018 [facility] CARDIAC ENZYMES BNP 73 <=100 pg/mL SP 08/22/2018 [facility] CHEM PANEL eGFR 92 SP Result Comment : The eGFR is calcul ated using the SPCKD-EPI formula. In most young, healthy individuals the eGFR will be >90 mL /min/1.73m2. The eGFR declines with age. An eGFR of 60-89 may be normal in some populations, particularly the elderly, for whom the CKD-EPI formula has not been extensively validated. Use of the eGFR is not recommended in the following populations:

Individuals with unstable creatinine concentrations,including patients and those with serious co-morbid conditions.
<br/ >Patients with extremes in muscle mass or diet.

The data above are obtained from the National Kidney Disease Education Program (NKDEP) which additionally recommends that when the eGFR is used in patients with extremes of body mass index for purposes of drug dosing, the eGFR should be multiplied by the estimated BMI. [facility] SP CHEM PANEL Bili Total 0.2 0.2 - 1.3 SP 08/22/2018 [facility] CHEM PANEL Albumin Lvl 3.0 3.5 - 5.0 SP 08/22/2018 [facility] CHEM PANEL Total Protein 7.4 6.4 - 8.4 SP 08/22/2018 [facility] CHEM PANEL Calcium Lvl 9.2 8.5 - 10.5 08/22/2018 [facility] CHEM PANEL Alk Phos 93 39 - 136 SP 08/22/2018 [facility] CHEM PANEL AST 9 0 - 37 SP [facility] SP CHEM PANEL ALT 19 0 - 65 SP [facility] CHEM PANEL CO2 30 24 - 3 2 SP [facility] CHEM PANEL Chloride Lvl 101 95 - 109 SP 08/22/2018 [facility] CHEM PANEL Sodium Lvl 136 135 - 145 SP 08/22/2018 [facility] CHEM PANEL Creatinine Lvl 0.81 0.50 - 1.40 08/22/2018 [facility] SP CHEM PANEL BUN 12 7 - 22 SP [facility] CHEM PANEL Glucose Lvl 89 70 - 99 SP 08/22/2018 [facility] CHEM PANEL Potassium Lvl 4.1 3.5 - 5.1 SP 08/22/2018 [facility] CHEM PANEL AGAP 9.1 10.0 - 20.0 SP 08/22/2018 [facility] CHEM PANEL B/C Ratio 15 6 - 25 SP 08/22/2018 [facility] CHEM PANEL A/G Ratio 0.7 0.7 - 1.6 SP 08/22/2018 [facility] CHEM PANEL Globulin 4.4 2.7 - 4.2 SP 08/22/2018 [facility] CHEM PANEL Magnesium Lvl 1.9 1.8 - 2.4 SP 08/22/2018 [facility] CHEM PANEL Phosphorus 3.3 2.5 - 4.5 SP 08/22/2018 [facility] ENDOCRINOLOGY S Preg Negative SP*NA* (08/22/18 6:05 PM) Negative 0 08/22/2018 [facility] HEMATOLOGY RDW 17.9 11.5 - 14.5 SP 08/22/2018 [facility] HEMATOLOGY Platelet 320 133 - 450 SP 08/22/2018 [facility] HEMATOLOGY RBC 4.24 4.20 - 5.40 SP 08/22/2018 [facility] HEMATOLOGY Hgb 9.2 12.0 - 16.0 08/22/2018 [facility] HEMATOLOGY MCHC 31.6 32.0 - 36.0 08/22/2018 [facility] HEMATOLOGY MPV 7.4 7.4 - 10.4 08/22/2018 [facility] HEMATOLOGY Hct 29.1 36.0 - 48.0 SP 08/22/2018 [facility] HEMATOLOGY MCV 68.6 80.0 - 98.0 SP 08/22/2018 [facility] HEMATOLOGY MCH 21.7 27.0 - 31.0 08/22/2018 [facility] HEMATOLOGY WBC 6.8 3.7 - 10.4 08/22/2018 [facility] HEMATOLOGY INR 0.91 0.85 - 1.17 08/22/2018 [facility] HEMATOLOGY PT 12.1 12.0 - 14.7 08/22/2018 [facility] HEMATOLOGY PTT 26.3 22.9 - 35.8 08/22/2018 [facility] HEMATOLOGY Eosinophils # 0.2 0.0 - 0.5 SP 08/22/2018 [facility] HEMATOLOGY Microcyte 3+ SP*NA* (08/22/18 6:05 PM) None Seen 08/22/2018 [facility] HEMATOLOGY Monocytes 8.5 2.0 - 12.0 SP 08/22/2018 [facility] HEMATOLOGY Lymphocytes 34.3 20.0 - 40.0 SP 08/22/2018 [facility] HEMATOLOGY Eosinophils 3.1 0.0 - 4.0 SP 08/22/2018 [facility] HEMATOLOGY Basophils 0.6 0.0 - 1.0 SP 08/22/2018 [facility] HEMATOLOGY Lymphocytes # 2.3 1.0 - 5.5 SP 08/22/2018 [facility] HEMATOLOGY Monocytes # 0.6 0.0 - 0.8 SP 08/22/2018 [facility] HEMATOLOGY Neutrophils # 3.7 1.5 - 8.1 SP 08/22/2018 [facility] HEMATOLOGY Segs 53.5 45.0 - 75.0 08/22/2018 [facility] URINE AND STOOL UA WBC 2 0 - 5 08/22/2018 [facility] URINE AND STOOL UA RBC 1 0 - 2 08/22/2018 [facility] URINE AND STOOL UA Bili Negative SP*NA* (08/22/18 6:05 PM) Negative 0 08/22/2018 [facility] URINE AND STOOL UA Ketones Negative SP*NA* (08/22/18 6:05 PM) Negative 0 08/22/2018 [facility] URINE AND STOOL UA Glucose Negative SP*NA* (08/22/18 6:05 PM) Negative 0 08/22/2018 [facility] URINE AND STOOL UA Leuk Est Negative SP (08/22/18 6:05 PM) Negative 0 08/22/2018 [facility] URINE AND STOOL UA Sq Epi Many /LPF Few /LPF 08/22/2018 [facility] URINE AND STOOL UA Hyal Cast 1 0 - 2 08/22/2018 [facility] URINE AND STOOL UA Bacteria None Seen SP (08/22/18 6:05 PM) None Seen 08/22/2018 [facility] URINE AND STOOL UA Mucus Few /LPF None Seen /LPF SP 08/22/2018 [facility] URINE AND STOOL UA Blood Negative SP (08/22/18 6:05 PM) Negative 0 08/22/2018 [facility] URINE AND STOOL UA Urobilinogen <=1.0 mg/dL 0.1 - SP 08/22/2018 [facility] URINE AND STOOL UA Nitrite Negative (08/22/18 6:05 PM) Negative 0 08/22/2018 [facility] URINE AND STOOL UA Color Yellow SP*NA* (08/22/18 6:05 PM) Yellow 05/2018 [facility] URINE AND STOOL UA Protein Negative SP (6/3/19 6:05 PM) Negative 0 08/22/2018 [facility] URINE AND STOOL UA pH 6.0 5.0 - 8.0 08/22/2018 [facility] URINE AND STOOL UA Spec Grav 1.017 <=1.030 08/22/2018 [facility] URINE AND STOOL UA Turbidity Clear SP (08/22/18 6:05 PM) Clear 06/0 05/2018 [facility] CARDIAC ENZYMES Troponin-I <0.02 0.00 - 0.40 08/18/2018 [facility] CARDIAC ENZYMES BNP 65 <=100 pg/mL 08/18/2018 [facility] CARDIAC ENZYMES Troponin-I <0.02 0.00 - 0.40 08/18/2018 [facility] CARDIAC ENZYMES Total CK 40 12 - 191 08/18/2018 [facility] CHEM PANEL eGFR 88 SP Result Comment : The eGFR is calcul ated using the SPCKD-EPI formula. In most young, healthy individuals the eGFR will be >90 mL /min/1.73m2. The eGFR declines with age. An eGFR of 60-89 may be normal in some populations, particularly the elderly, for whom the CKD-EPI formula has not been extensively validated. Use of the eGFR is not recommended in the following populations:

Individuals with unstable creatinine concentrations,including patients and those with serious co-morbid conditions.
<br/ >Patients with extremes in muscle mass or diet.

The data above are obtained from the National Kidney Disease Education Program (NKDEP) which additionally recommends that when the eGFR is used in patients with extremes of body mass index for purposes of drug dosing, the eGFR should be multiplied by the estimated BMI. [facility] CHEM PANEL Potassium Lvl 3.8 3.5 - 5.1 08/18/2018 [facility] CHEM PANEL Chloride Lvl 102 95 - 109 08/18/2018 [facility] CHEM PANEL Calcium Lvl 8.9 8.5 - 10.5 08/18/2018 [facility] CHEM PANEL CO2 28 24 - 3 2 SP [facility] CHEM PANEL Total Protein 7.4 6.4 - 8.4 08/18/2018 [facility] SP CHEM PANEL Albumin Lvl 3.1 3.5 - 5.0 SP 08/18/2018 [facility] CHEM PANEL AST 12 0 - 37 SP [facility] SP CHEM PANEL ALT 18 0 - 65 SP [facility] SP CHEM PANEL Alk Phos 101 39 - 136 SP 08/18/2018 [facility] CHEM PANEL Bili Total 0.2 0.2 - 1.3 SP 08/18/2018 [facility] CHEM PANEL Glucose Lvl 96 70 - 99 SP 08/18/2018 [facility] CHEM PANEL BUN 14 7 - 22 SP [facility] SP CHEM PANEL Creatinine Lvl 0.84 0.50 - 1.40 SP 08/18/2018 [facility] SP CHEM PANEL Sodium Lvl 134 135 - 145 SP 08/18/2018 [facility] CHEM PANEL AGAP 7.8 10.0 - 20.0 SP 08/18/2018 [facility] CHEM PANEL Globulin 4.3 2.7 - 4.2 SP 08/18/2018 [facility] CHEM PANEL B/C Ratio 17 6 - 25 SP 08/18/2018 [facility] CHEM PANEL A/G Ratio 0.7 0.7 - 1.6 SP 08/18/2018 [facility] ENDOCRINOLOGY S Preg Negative SP*NA* (08/17/18 11:32 PM) Negative 08/18/2018 [facility] SP HEMATOLOGY Microcyte 2+ SP*ABN* (08/17/18 11:32 PM) None Seen 08/18/2018 [facility] SP HEMATOLOGY Eosinophils # 0.2 0.0 - 0.5 SP 08/18/2018 [facility] HEMATOLOGY Monocytes # 0.6 0.0 - 0.8 SP 08/18/2018 [facility] HEMATOLOGY Basophils # 0.1 0.0 - 0.2 SP 08/18/2018 [facility] HEMATOLOGY Lymphocytes # 3.2 1.0 - 5.5 SP 08/18/2018 [facility] HEMATOLOGY Segs 52.1 45.0 - 75.0 SP 08/18/2018 [facility] HEMATOLOGY Lymphocytes 37.8 20.0 - 40.0 SP 08/18/2018 [facility] HEMATOLOGY Basophils 1.0 0.0 - 1.0 SP 08/18/2018 [facility] HEMATOLOGY Eosinophils 2.1 0.0 - 4.0 SP 08/18/2018 [facility] HEMATOLOGY Monocytes 7.0 2.0 - 12.0 SP 08/18/2018 [facility] HEMATOLOGY Neutrophils # 4.4 1.5 - 8.1 SP 08/18/2018 [facility] HEMATOLOGY PTT 25.2 22.9 - 35.8 08/18/2018 [facility] HEMATOLOGY INR 0.95 0.85 - 1.17 08/18/2018 [facility] HEMATOLOGY PT 12.5 12.0 - 14.7 08/18/2018 [facility] HEMATOLOGY Hgb 9.3 12.0 - 16.0 08/18/2018 [facility] HEMATOLOGY Hct 30.0 36.0 - 48.0 08/18/2018 [facility] HEMATOLOGY MCH 21.8 27.0 - 31.0 08/18/2018 [facility] HEMATOLOGY MCV 70.2 80.0 - 98.0 08/18/2018 [facility] HEMATOLOGY Platelet 333 133 - 450 08/18/2018 [facility] HEMATOLOGY RDW 17.9 11.5 - 14.5 08/18/2018 [facility] HEMATOLOGY MCHC 31.0 32.0 - 36.0 08/18/2018 [facility] HEMATOLOGY MPV 7.3 7.4 - 10.4 08/18/2018 [facility] HEMATOLOGY RBC 4.28 4.20 - 5.40 08/18/2018 [facility] HEMATOLOGY WBC 8.5 3.7 - 10.4 08/18/2018 [facility] URINE AND STOOL UA WBC 1 0 - 5 08/18/2018 [facility] URINE AND STOOL UA RBC 3 0 - 2 08/18/2018 [facility] URINE AND STOOL UA Leuk Est Negative (08/17/18 11:32 PM) Negative 08/18/2018 [facility] URINE AND STOOL UA Sq Epi Occasional /LPF Few /LPF 08/18/2018 [facility] URINE AND STOOL UA Mucus Few /LPF None Seen /LPF 08/18/2018 [facility] URINE AND STOOL UA Color Yellow SP*NA* (08/17/18 11:32 PM) Yellow 0 08/18/2018 [facility] URINE AND STOOL UA Urobilinogen <=1.0 mg/dL 0.1 - SP 08/18/2018 [facility] URINE AND STOOL UA Nitrite Negative SP (08/17/18 11:32 PM) Negative 08/18/2018 [facility] URINE AND STOOL UA Bili Negative SP*NA* (08/17/18 11:32 PM) Negative 08/18/2018 [facility] URINE AND STOOL UA Blood Negative SP (08/17/18 11:32 PM) Negative 08/18/2018 [facility] URINE AND STOOL UA Ketones Negative SP*NA* (08/17/18 11:32 PM) Negative 08/18/2018 [facility] URINE AND STOOL UA Protein Negative SP (08/17/18 11:32 PM) Negative 08/18/2018 [facility] URINE AND STOOL UA Glucose Negative SP*NA* (08/17/18 11:32 PM) Negative 08/18/2018 [facility] URINE AND STOOL UA Spec Grav 1.018 <=1.030 SP 08/18/2018 [facility] URINE AND STOOL UA pH 5.0 5.0 - 8.0 SP 08/18/2018 [facility] URINE AND STOOL UA Turbidity Clear SP (08/17/18 11:32 PM) Clear [facility] CARDIAC ENZYMES Troponin-I <0.02 0.00 - 0.40 SP 08/12/2018 [facility] HEMATOLOGY Monocytes 6.9 2.0 - 12.0 SP 08/12/2018 [facility] HEMATOLOGY Segs 51.6 45.0 - 75.0 SP 08/12/2018 [facility] HEMATOLOGY Lymphocytes 39.0 20.0 - 40.0 08/12/2018 [facility] HEMATOLOGY Eosinophils # 0.2 0.0 - 0.5 08/12/2018 [facility] HEMATOLOGY Microcyte 2+ SP*ABN* (08/12/18 2:58 AM) None Seen 08/12/2018 [facility] HEMATOLOGY Neutrophils # 4.7 1.5 - 8.1 SP 08/12/2018 [facility] HEMATOLOGY Monocytes # 0.6 0.0 - 0.8 SP 08/12/2018 [facility]ATOLOGY Lymphocytes # 3.5 1.0 - 5.5 SP 08/12/2018 [facility]EMATOLOGY Basophils 0.2 0.0 - 1.0 SP 08/12/2018 [facility]EMATOLOGY Eosinophils 2.3 0.0 - 4.0 08/12/2018 [facility]AT[facility]Y MCV 69.7 80.0 - 98.0 SP 08/12/2018 [facility] HEMATOLOGY MCH 22.2 27.0 - 31.0 SP 08/12/2018 [facility] HEMATOLOGY Platelet 377 133 - 450 SP 08/12/2018 [facility] HEMATOLOGY MCHC 31.9 32.0 - 36.0 SP 08/12/2018 [facility] HEMATOLOGY RDW 17.4 11.5 - 14.5 08/12/2018 [facility] HEMATOLOGY MPV 7.4 7.4 - 10.4 08/12/2018 [facility] HEMATOLOGY RBC 4.56 4.20 - 5.40 08/12/2018 [facility] HEMATOLOGY Hgb 10.1 12.0 - 16.0 08/12/2018 [facility] HEMATOLOGY Hct 31.7 36.0 - 48.0 08/12/2018 [facility] HEMATOLOGY WBC 9.1 3.7 - 10.4 08/12/2018 [facility] HEMATOLOGY PTT 21.4 22.9 - 35.8 08/12/2018 Result Comment: Checked for clot SP 03:17 MA [facility] HEMATOLOGY PT 12.9 12.0 - 14.7 08/12/2018 [facility] HEMATOLOGY INR 0.99 0.85 - 1.17 08/12/2018 [facility] CARDIAC ENZYMES BNP 22 <=100 pg/mL 08/12/2018 [facility] CARDIAC ENZYMES Total CK 42 12 - 191 SP 08/12/2018 [facility] CARDIAC ENZYMES Troponin-I <0.02 0.00 - 0.40 08/12/2018 [facility] CHEM PANEL A/G Ratio 0.8 0.7 - 1.6 08/12/2018 [facility] CHEM PANEL AGAP 11.8 10.0 - 20.0 08/12/2018 [facility] CHEM PANEL B/C Ratio 14 6 - 25 08/12/2018 [facility] CHEM PANEL Globulin 4.7 2.7 - 4.2 08/12/2018 [facility] CHEM PANEL eGFR 80 SP Result Comment : The eGFR is calcul ated using the SPCKD-EPI formula. In most young, healthy individuals the eGFR will be >90 mL /min/1.73m2. The eGFR declines with age. An eGFR of 60-89 may be normal in some populations, particularly the elderly, for whom the CKD-EPI formula has not been extensively validated. Use of the eGFR is not recommended in the following populations:

Individuals with unstable creatinine concentrations,including patients and those with serious co-morbid conditions.
<br/ >Patients with extremes in muscle mass or diet.

The data above are obtained from the National Kidney Disease Education Program (NKDEP) which additionally recommends that when the eGFR is used in patients with extremes of body mass index for purposes of drug dosing, the eGFR should be multiplied by the estimated BMI. [facility] CHEM PANEL AST 15 0 - 37 SP [facility] CHEM PANEL Alk Phos 110 39 - 136 08/12/2018 [facility] CHEM PANEL ALT 20 0 - 65 SP [facility] CHEM PANEL Bili Total 0.3 0.2 - 1.3 08/12/2018 [facility] CHEM PANEL Creatinine Lvl 0.92 0.50 - 1.40 08/12/2018 [facility] CHEM PANEL Chloride Lvl 100 95 - 109 08/12/2018 [facility] CHEM PANEL CO2 24 24 - 3 2 SP [facility] CHEM PANEL Sodium Lvl 132 135 - 145 08/12/2018 [facility] CHEM PANEL Potassium Lvl 3.8 3.5 - 5.1 08/12/2018 SP CHEM PANEL Calcium Lvl 9.4 8.5 - 10.5 08/12/2018 SP CHEM PANEL Total Protein 8.5 6.4 - 8.4 08/12/2018 SP CHEM PANEL Albumin Lvl 3.8 3.5 - 5.0 08/12/2018 SP CHEM PANEL Glucose Lvl 87 70 - 99 08/12/2018 [facility] CHEM PANEL BUN 13 7 - 22 [facility] ENDOCRINOLOGY S Preg Negative SP*NA* (08/12/18 2:36 AM) Negative 08/12/2018 [facility] ANEMIA STUDY Iron 17 30 - 160 07/30/2018 [facility] ANEMIA STUDY TIBC 479 228 - 428 07/30/2018 [facility] ANEMIA STUDY % Satur Fe 4 12 - 57 07/30/2018 [facility] ANEMIA STUDY UIBC 462 110 - 370 07/30/2018 [facility] ANEMIA STUDY Ferritin Lvl 14 5 - 204 07/30/2018 [facility] ANEMIA STUDY Vitamin B12 Lvl 284 254 - 1320 07/30/2018 [facility] ANEMIA STUDY Folate Lvl 7.4 >=3.0 ng/mL 07/30/2018 [facility] CARDIAC ENZYMES Troponin-I <0.02 0.00 - 0.40 07/30/2018 [facility] CHEM PANEL LDH 111 98 - 192 [facility] ELECTROLYTES CO2 30 24 - 32 [facility] ELECTROLYTES Total Protein 7.3 6.4 - 8.4 07/30/2018 [facility] ELECTROLYTES Alk Phos 116 39 - 136 07/30/2018 [facility] ELECTROLYTES B/C Ratio 18 6 - 25 07/30/2018 [facility] ELECTROLYTES Calcium Lvl 9.1 8.5 - 10.5 07/30/2018 [facility] ELECTROLYTES AGAP 10.8 10.0 - 20.0 07/30/2018 [facility] ELECTROLYTES AST 8 0 - 3 7 [facility] ELECTROLYTES ALT 14 0 - 65 [facility] ELECTROLYTES A/G Ratio 0.7 0.7 - 1.6 07/30/2018 [facility] ELECTROLYTES Globulin 4.3 2.7 - 4.2 07/30/2018 [facility] ELECTROLYTES Glucose Lvl 110 70 - 99 07/30/2018 [facility] ELECTROLYTES Chloride Lvl 99 95 - 109 07/30/2018 [facility] ELECTROLYTES Potassium Lvl 3.8 3.5 - 5.1 07/30/2018 [facility] ELECTROLYTES Sodium Lvl 136 135 - 145 07/30/2018 [facility] ELECTROLYTES Creatinine Lvl 0.79 0.50 - 1.40 07/30/2018 [facility] ELECTROLYTES BUN 14 7 - 22 [facility] ELECTROLYTES eGFR 95 SP Result Comment : The eGFR is calcul ated using the SPCKD-EPI formula. In most young, healthy individuals the eGFR will be >90 mL /min/1.73m2. The eGFR declines with age. An eGFR of 60-89 may be normal in some populations, particularly the elderly, for whom the CKD-EPI formula has not been extensively validated. Use of the eGFR is not recommended in the following populations:

Individuals with unstable creatinine concentrations,including patients and those with serious co-morbid conditions.
<br/ >Patients with extremes in muscle mass or diet.

The data above are obtained from the National Kidney Disease Education Program (NKDEP) which additionally recommends that when the eGFR is used in patients with extremes of body mass index for purposes of drug dosing, the eGFR should be multiplied by the estimated BMI. [facility] ELECTROLYTES Bili Total 0.3 0.2 - 1.3 07/30/2018 [facility] ELECTROLYTES Albumin Lvl 3.0 3.5 - 5.0 07/30/2018 [facility] HEMATOLOGY MCHC 31.4 32.0 - 36.0 07/30/2018 [facility] HEMATOLOGY MCH 22.3 27.0 - 31.0 07/30/2018 [facility] HEMATOLOGY MCV 71.1 80.0 - 98.0 07/30/2018 [facility] HEMATOLOGY Hct 30.0 36.0 - 48.0 07/30/2018 [facility] HEMATOLOGY Hgb 9.4 12.0 - 16.0 07/30/2018 [facility] HEMATOLOGY Platelet 309 133 - 450 07/30/2018 [facility] HEMATOLOGY RDW 17.4 11.5 - 14.5 07/30/2018 [facility] HEMATOLOGY MPV 7.8 7.4 - 10.4 07/30/2018 [facility] HEMATOLOGY RBC 4.22 4.20 - 5.40 07/30/2018 [facility] HEMATOLOGY WBC 9.6 3.7 - 10.4 07/30/2018 [facility] HEMATOLOGY Eosinophils # 0.1 0.0 - 0.5 07/30/2018 [facility] HEMATOLOGY Monocytes # 0.7 0.0 - 0.8 07/30/2018 [facility] HEMATOLOGY Lymphocytes # 1.8 1.0 - 5.5 07/30/2018 [facility] HEMATOLOGY Neutrophils # 6.8 1.5 - 8.1 07/30/2018 [facility] HEMATOLOGY Basophils # 0.1 0.0 - 0.2 07/30/2018 [facility] HEMATOLOGY Microcyte 2+ SP*ABN* (07/30/18 3:23 AM) None Seen 07/30/2018 [facility] HEMATOLOGY Monocytes 7.3 2.0 - 12.0 07/30/2018 [facility] HEMATOLOGY Lymphocytes 18.8 20.0 - 40.0 SP 07/30/2018 [facility] HEMATOLOGY Segs 71.8 45.0 - 75.0 07/30/2018 [facility] HEMATOLOGY Basophils 0.8 0.0 - 1.0 SP 07/30/2018 [facility] HEMATOLOGY Eosinophils 1.3 0.0 - 4.0 SP 07/30/2018 [facility] HEMATOLOGY Retic Auto 1.7 0.5 - 1.5 07/30/2018 [facility] LIPIDS VLDL 10 07/30/2018 [facility] LIPIDS CHD Risk 3.94 3.90 - 5.80 07/30/2018 [facility] LIPIDS HDL 50 >=61 mg/dL [facility] LIPIDS Trig 50 <=149 mg/d L [facility] LIPIDS Chol 197 <=199 mg/ dL [facility] LIPIDS LDL (Calculated) 137 < =99 mg/dL 07/30/2018 [facility] SPECIAL CHEMISTRY Hgb A1C 6.0 <=5.6 % 07/30/2018 [facility] URINE AND STOOL Occult Bld Stl Negative SP (07/30/18 1:20 AM) Negative 07/30/2018 [facility] CARDIAC ENZYMES Troponin-I <0.02 0.00 - 0.40 07/30/2018 [facility] CHEM PANEL Lactic Acid Lvl 1.0 0.5 - 2.2 07/30/2018 [facility] CHEM PANEL Phosphorus 3.7 2.5 - 4.5 07/30/2018 [facility] CHEM PANEL Magnesium Lvl 1.8 1.8 - 2.4 07/30/2018 [facility] URINE AND STOOL UA Nitrite Negative SP (07/29/18 9:04 PM) Negative 07/30/2018 [facility] URINE AND STOOL UA Leuk Est Small SP*ABN* (07/29/18 9:04 PM) Negative 07/30/2018 [facility] URINE AND STOOL UA Bili Negative SP*NA* (07/29/18 9:04 PM) Negative 07/30/2018 [facility] URINE AND STOOL UA Blood Negative SP (07/29/18 9:04 PM) Negative 07/30/2018 [facility] [place] SP URINE AND STOOL UA Urobilinogen 3.0 0.1 - 1.0 07/30/2018 [facility] [place] SP URINE AND STOOL UA Protein 20 mg/dL Negative mg/dL 07/30/2018 [facility] [place] SP URINE AND STOOL UA Glucose Negative mg/dL Negative 07/30/2018 [facility] [place] SP URINE AND STOOL UA Ketones Negative mg/dL Negative 07/30/2018 [facility] [place] SP URINE AND STOOL UA Spec Grav 1.026 <=1.030 07/30/2018 [facility] [place] SP URINE AND STOOL UA pH 6.5 5.0 - 8.0 07/30/2018 [facility] URINE AND STOOL UA Bacteria Occasional /HPF None SP /HPF 07/30/2018 [facility] [place] SP URINE AND STOOL UA Mucus Few /LPF None Seen /LPF 07/30/2018 [facility] [place] SP URINE AND STOOL UA RBC 3 0 - 2 07/30/2018 [facility] URINE AND STOOL UA Sq Epi Many /LPF Few /LPF 07/30/2018 [facility] [place] SP URINE AND STOOL UA WBC 6 0 - 5 SP 07/30/2018 [facility] URINE AND STOOL UA Hyal Cast 13 0 - 2 07/30/2018 [facility] URINE AND STOOL UA Color Yellow SP*NA* (07/29/18 9:04 PM) Yellow [facility] [place] SP URINE AND STOOL UA Turbidity Slight SP*ABN* (07/29/18 9:04 PM) Clear 01/2019 [facility] RAPID Grp A Strep Scr Positive 3 SP*ABN* (07/29/18 8:34 PM) Negative 07/30/2018 Result Comment : "Significant Findi ngs of pos strep called to NOHEMI Ash at 07/29/2018 21:04 by [facility]. Read Back OK." [facility] CARDIAC ENZYMES BNP 44 <=100 pg/mL SP 07/30/2018 [facility] CARDIAC ENZYMES Total CK 34 12 - 191 SP 07/30/2018 [facility] CARDIAC ENZYMES Troponin-I <0.02 0.00 - 0.40 07/30/2018 [facility] [place] SP CHEM PANEL Lactic Acid Lvl 2.8 0.5 - 2.2 07/30/2018 [place] CHEM PANEL Lipase Lvl 131 73 - 393 07/30/2018 [facility] CHEM PANEL Magnesium Lvl 1.8 1.8 - 2.4 07/30/2018 [facility] CHEM PANEL Globulin 4.5 2.7 - 4.2 07/30/2018 [facility] CHEM PANEL AGAP 12.5 10.0 - 20.0 07/30/2018 [facility] CHEM PANEL A/G Ratio 0.7 0.7 - 1.6 07/30/2018 [facility] CHEM PANEL B/C Ratio 13 6 - 25 07/30/2018 [facility] CHEM PANEL eGFR 65 SP Result Comment : The eGFR is calcul ated using the SPCKD-EPI formula. In most young, healthy individuals the eGFR will be >90 mL /min/1.73m2. The eGFR declines with age. An eGFR of 60-89 may be normal in some populations, particularly the elderly, for whom the CKD-EPI formula has not been extensively validated. Use of the eGFR is not recommended in the following populations:

Individuals with unstable creatinine concentrations,including patients and those with serious co-morbid conditions.
<br/ >Patients with extremes in muscle mass or diet.

The data above are obtained from the National Kidney Disease Education Program (NKDEP) which additionally recommends that when the eGFR is used in patients with extremes of body mass index for purposes of drug dosing, the eGFR should be multiplied by the estimated BMI. [place] [facility] CHEM PANEL Alk Phos 127 39 - 136 07/30/2018 [facility] CHEM PANEL Bili Total 0.4 0.2 - 1.3 07/30/2018 [facility] CHEM PANEL ALT 14 0 - [address] [facility] CHEM PANEL AST 8 0 - [address] [facility] CHEM PANEL Albumin Lvl 3.2 3.5 - 5.0 07/30/2018 [facility] CHEM PANEL Creatinine Lvl 1.09 0.50 - 1.40 SP 07/30/2018 [facility] [place] SP CHEM PANEL Sodium Lvl 136 135 - 145 SP 07/30/2018 [facility] CHEM PANEL Potassium Lvl 3.5 3.5 - 5.1 SP 07/30/2018 [facility] CHEM PANEL Chloride Lvl 100 95 - 109 SP 07/30/2018 [facility] CHEM PANEL Total Protein 7.7 6.4 - 8.4 SP 07/30/2018 [facility] CHEM PANEL Glucose Lvl 122 70 - 99 SP 07/30/2018 [facility] CHEM PANEL BUN 14 7 - [address] [facility] CHEM PANEL Calcium Lvl 9.3 8.5 - 10.5 SP 07/30/2018 [facility] CHEM PANEL CO2 27 24 - [address] [facility] HEMATOLOGY Eosinophils # 0.1 0.0 - 0.5 SP 07/30/2018 [facility] HEMATOLOGY Microcyte 2+ SP*ABN* (07/29/18 8:30 PM) None Seen 07/30/2018 [facility] [place] SP HEMATOLOGY Neutrophils # 9.1 1.5 - 8.1 SP 07/30/2018 [facility] HEMATOLOGY Lymphocytes # 1.3 1.0 - 5.5 SP 07/30/2018 [facility] HEMATOLOGY Monocytes # 0.7 0.0 - 0.8 SP 07/30/2018 [facility] HEMATOLOGY Segs 81.3 45.0 - 75.0 SP 07/30/2018 [facility] HEMATOLOGY Lymphocytes 11.3 20.0 - 40.0 SP 07/30/2018 [facility] HEMATOLOGY Monocytes 6.3 2.0 - 12.0 SP 07/30/2018 [facility] HEMATOLOGY Eosinophils 0.7 0.0 - 4.0 SP 07/30/2018 [facility] HEMATOLOGY Basophils 0.4 0.0 - 1.0 SP 07/30/2018 [facility] SP HEMATOLOGY PTT 32.2 22.9 - 35.8 SP 07/30/2018 [facility] SP HEMATOLOGY INR 1.08 0.85 - 1.17 SP 07/30/2018 [facility] SP HEMATOLOGY PT 13.8 12.0 - 14.7 SP 07/30/2018 [facility] SP HEMATOLOGY Hct 30.3 36.0 - 48.0 SP 07/30/2018 [facility] SP HEMATOLOGY Platelet 372 133 - 450 07/30/2018 [facility] HEMATOLOGY RDW 17.1 11.5 - 14.5 07/30/2018 [facility] HEMATOLOGY MCH 22.5 27.0 - 31.0 07/30/2018 [facility] HEMATOLOGY MCV 70.9 80.0 - 98.0 07/30/2018 [facility] HEMATOLOGY MPV 8.1 7.4 - 10.4 07/30/2018 [facility] HEMATOLOGY MCHC 31.7 32.0 - 36.0 07/30/2018 [facility] HEMATOLOGY Hgb 9.6 12.0 - 16.0 07/30/2018 [facility] HEMATOLOGY WBC 11.3 3.7 - 10.4 07/30/2018 [facility] HEMATOLOGY RBC 4.27 4.20 - 5.40 07/30/2018 [facility] CHEM PANEL Procalcitonin Lvl 0.08 0.00 - 0.10 07/30/2018 [facility] ENDOCRINOLOGY hCG Tot <1 [facility] White blood cell count 5.8 4.0 - 11.5 05/10/2018 [facility] RBC count 3.80 3.80 - 5.20 [facility] Blood hemoglobin measurement (mass/ volume) 9.3 10.5 SP- 15.7 05/10/2018 [facility] Hematocrit 30.0 34.0 - 50.0 05/10/2018 [facility] MCV (mean corpuscular volume) determination 79.0 78 SP- 98 05/10/2018 [facility] Mean corpuscular hemoglobin ( MCH) determination 24 .5 SP 26.2 - 33.4 05/10/2018 [facility] Mean corpuscular hemoglobin concentration (MCHC) d etermination 31.0 SP 31.5 - 36.2 05/10/2018 [facility] SP RDW 15.8 11.5 - 15.5 [facility] Platelets bld 241 137 - 3 38 SP 05/10/2018 [facility] Blood platelet mean volume 6.9 8.4 - 11.8 05/10/2018 [facility] SP Blood band neutrophils/100 leukocytes 67.5 44.4 - 05/10/2018 [facility] SP Body fluid lymphocytes/100 leukocytes 24.1 10.0 - 05/10/2018 [facility] SP [place] % 5.2 3.6 - 12.04 [facility] Eosinophil % 2.4 0.0 - 5 .41 05/10/2018 [facility] Basophil % 0.9 0.0 - 0.79 [facility] Color of Urine by Auto YELLOW SP 04/25/2018 [facility] Urine appearance determination SL CLOUDY CLEAR SP 04/25/2018 [facility] SP Glucose [Presence] in Urine by Automated test stri p NEGATIVE SP NEGATIVE 04/25/2018 [facility] SP Urine total bilirubin measurement (mass/volume) NE GATIVE SP NEGATIVE 04/25/2018 [facility] SP Ketones [Mass/volume] in Urine by Automated test s trip NEGATIVE SP NEGATIVE 04/25/2018 [facility] SP Specific gravity of Urine by Automated test strip 1.030 SP 1.003 - 1.030 04/25/2018 [facility] SP Urine blood detection by dipstick NEGATIVE NEGATIVE SP 04/25/2018 [facility] SP Urine pH measurement 6.000 5 - 9 SP 04/25/2018 [facility] Urine protein test by dipstick TRACE NEGATIVE SP 04/25/2018 [facility] SP Urine urobilinogen detection NORMAL 0.2 - 1.0 SP 04/25/2018 [facility] SP Nitrite ur dipstick NEGATIVE NE GATIVE SP 04/25/2018 [facility] Urine leukocyte esterase detection by automated te st strip NEGATIVE SP NEGATIVE 04/25/2018 [facility] SP RBC count ur auto <5 0 - 5 [facility] Leukocytes [#/area] in Urine sediment by Automated count <5 SP 0 - 5 04/25/2018 [facility] SP Epithelial cells detection in urine sediment by li ght microscopy <10 SP 0 - 5 04/25/2018 [facility] SP Automated urine sediment casts ( number/area) <5 SP Detect 04/25/2018 [facility] Urine Culture Reflexed YES SP 04/25/2018 [facility] Glucose measurement 115 74 - 10 6 SP 04/25/2018 [facility] Serum or plasma urea nitrogen measurement (mass/vo lume) 14 SP 6 - 20 04/25/2018 [facility] SP Osmolality ser 275 280 - 3 00 SP 04/25/2018 [facility] Creatinine blood 0.7 0.50 - 0.90 SP 04/25/2018 [facility] Estimated glomerular filtration rate (GFR) determi nation >60.00 SP 04/25/2018 [facility] Serum or plasma urea nitrogen/ creatinine ratio 20. 0 SP 12 - 20 04/25/2018 [facility] SP Sodium level 137 135 - 145 [facility] Body fluid potassium measurement 4.4 3.5 - 5.2 SP 04/25/2018 [facility] SP Chloride measurement 103 98 - 1 08 SP 04/25/2018 [facility] CO2 26 21 - 32 04/25/2018 [facility] SPCenter Anion gap measurement 12.4 12 - 20 SP 04/25/2018 [facility] Calcium level 9.2 8.6 - 1 0.0 SP 04/25/2018 [facility] Magnesium 1.9 1.6 - 2.6 [facility] Total protein 7.3 6.6 - 8 .7 SP 04/25/2018 [facility] Albumin 3.9 3.5 - 5.2 [facility] Globulin ser 3.4 [facility] Albumin-globulin ratio ser 1.1 >1.0 04/25/2018 [facility] Bilirubin total <0.3 0.0- 1.2 SP 04/25/2018 [facility] AST 10 15 - 32 04/25/2018 [facility] SPCenter ALT (SGPT) ser/plas 12 0 - 33 SP 04/25/2018 [facility] Hemoglobin A1c 5.8 4.0 - 6 .0 04/25/2018 [facility] ALP ser/plas 101 35 - 105 [facility] Random urine microalbumin measurement <12.0 0 - 20 04/25/2018 [facility] SP Cholesterol 206 150 - 200 [facility] Triglycerides level 82 <150 04/25/2018 [facility] HDL 51 >65 04/25/2018 [facility] l LDL cholesterol, direct 164 <10 0 04/25/2018 [facility] Cholesterol/HDL ratio 4.039 04/25/2018 [facility] Vitamin B12 measurement 454.3 2 11 - 946 02/15/2018 [facility] Folate measurement 9.21 4.78 - 24.2 02/15/2018 [facility] Vitamin B12 measurement 454.3 2 11 - 946 02/15/2018 [facility] Folate measurement 9.21 4.78 - 24.2 02/15/2018 [facility] White blood cell count 7.2 4.0 - 11.5 02/01/2018 [facility] RBC count 4.75 3.80 - 5.20 [facility] Blood hemoglobin measurement (mass/ volume) 11.8 SP - 15.7 02/01/2018 [facility] Hematocrit 37.3 34.0 - 50.0 02/01/2018 [facility] MCV (mean corpuscular volume) determination 78.5 78 SP- 98 02/01/2018 [facility] Mean corpuscular hemoglobin ( MCH) determination 24 .9 SP 26.2 - 33.4 02/01/2018 [facility] Mean corpuscular hemoglobin concentration (MCHC) d etermination 31.7 SP 31.5 - 36.2 02/01/2018 [facility] SP RDW 16.2 11.5 - 15.5 [facility] Platelets bld 287 137 - 3 38 SP 02/01/2018 [facility] Blood platelet mean volume 6.3 8.4 - 11.8 SP 02/01/2018 [facility] SP Blood band neutrophils/100 leukocytes 60.2 44.4 - SP 02/01/2018 [facility] SP Body fluid lymphocytes/100 leukocytes 29.0 10.0 - SP 02/01/2018 [facility] SP [place] % 7.5 3.6 - 12.04 [facility] Eosinophil % 2.1 0.0 - 5 .41 SP 02/01/2018 [facility] Basophil % 1.2 0.0 - 0.79 [facility] Platelets bld 287 137 - 3 38 SP 02/01/2018 [facility] Blood platelet mean volume 6.3 8.4 - 11.8 SP 02/01/2018 [facility] SP Blood band neutrophils/100 leukocytes 60.2 44.4 - 02/01/2018 [facility] SP Body fluid lymphocytes/100 leukocytes 29.0 10.0 - 02/01/2018 [facility] SP [place] % 7.5 3.6 - 12.04 [facility] Eosinophil % 2.1 0.0 - 5 .41 SP 02/01/2018 [facility] Basophil % 1.2 0.0 - 0.79 [facility] Automated urine sediment casts (number/area) None Detected SP None Detect 01/24/2018 [facility] SP Urine Culture Reflexed YES SP 01/24/2018 [facility] Glucose [Presence] in Urine by Automated test stri p NEGATIVE SP NEGATIVE 01/24/2018 [facility] SP Urine total bilirubin measurement (mass/volume) NE GATIVE SP NEGATIVE 01/24/2018 [facility] SP Ketones [Mass/volume] in Urine by Automated test s trip NEGATIVE SP NEGATIVE 01/24/2018 [facility] SP Specific gravity of Urine by Automated test strip 1.014 SP 1.003 - 1.030 01/24/2018 [facility] SP Urine blood detection by dipstick NEGATIVE NEGATIVE SP 01/24/2018 [facility] SP Urine pH measurement 6.500 5 - 9 SP 01/24/2018 [facility] Urine protein test by dipstick NEGATIVE NEGATIVE SP 01/24/2018 [facility] Urine urobilinogen detection NORMAL 0.2 - 1.0 SP 01/24/2018 [facility] SP Nitrite ur dipstick NEGATIVE NE GATIVE SP 01/24/2018 [facility] Urine leukocyte esterase detection by automated te st strip NEGATIVE SP NEGATIVE 01/24/2018 [facility] RBC count ur auto <5 0 - 5 [facility] Leukocytes [#/area] in Urine sediment by Automated count <5 SP 0 - 5 01/24/2018 [facility] Epithelial cells detection in urine sediment by li ght microscopy <5 0 - 5 01/24/2018 [facility] Automated urine sediment casts (number/area) None Detected SP None Detect 01/24/2018 [facility] Amphetamine ur screen NEGATIVE NEGATIVE SP 01/24/2018 [facility] Amphetamine ur screen NEGATIVE NEGATIVE 01/24/2018 [facility] Urine barbiturates measurement (units/volume) NEGA TIVE SP NEGATIVE 01/24/2018 [facility] SP Benzodiazepines screen ur NEGATIVE NEGATIVE SP 01/24/2018 [facility] SP Cannabinoids ([id number]) measurement POSITIVE SP 01/24/2018 [facility] [facility] Cocaine metabolite screen NEGATIVE NEGATIVE SP 01/24/2018 [facility] SP Opiates level NEGATIVE NE GATIVE SP 01/24/2018 [facility] Phencyclidine (PCP) ur NEGATIVE NEGATIVE SP 01/24/2018 [facility] Methadone NEGATIVE NE GATIVE SP 01/24/2018 [facility] Propoxyphene [Mass/volume] in Urine NEGATIVE SP 01/24/2018 [facility] SP Oxycodone [Mass/volume] in Urine NEGATIVE NEGATIVE SP 01/24/2018 [facility] SP Urine Drug Screen Note . [facility] Color of Urine by Auto LIGHT YELLOW SP 01/24/2018 [facility] Urine appearance determination CLEAR CLEAR SP 01/24/2018 [facility] SP Glucose [Presence] in Urine by Automated test stri p NEGATIVE SP NEGATIVE 01/24/2018 [facility] SP Urine total bilirubin measurement (mass/volume) NE GATIVE SP NEGATIVE 01/24/2018 [facility] SP Ketones [Mass/volume] in Urine by Automated test s trip NEGATIVE SP NEGATIVE 01/24/2018 [facility] SP Specific gravity of Urine by Automated test strip 1.014 SP 1.003 - 1.030 01/24/2018 [facility] SP Urine blood detection by dipstick NEGATIVE NEGATIVE SP 01/24/2018 [facility] Urine pH measurement 6.500 5 - 9 SP 01/24/2018 [facility] Urine protein test by dipstick NEGATIVE NEGATIVE SP 01/24/2018 [facility] Urine urobilinogen detection NORMAL 0.2 - 1.0 SP 01/24/2018 [facility] SP Nitrite ur dipstick NEGATIVE NE GATIVE SP 01/24/2018 [facility] Urine leukocyte esterase detection by automated te st strip NEGATIVE SP NEGATIVE 01/24/2018 [facility] SP RBC count ur auto <5 0 - 5 [facility] Leukocytes [#/area] in Urine sediment by Automated count <5 SP 0 - 5 01/24/2018 [facility] SP Epithelial cells detection in [facility] sediment [facility] SP 0 - 5 01/24/2018 [facility] Automated urine sediment casts (number/area) None Detected SP None Detect 01/24/2018 [facility] SP Urine Culture Reflexed YES 01/24/2018 [facility] Urine barbiturates measurement (units/volume) NEGA TIVE SP NEGATIVE 01/24/2018 [facility] SP Benzodiazepines screen ur NEGATIVE NEGATIVE SP 01/24/2018 [facility] SP Cannabinoids ([id number]) measurement POSITIVE SP 01/24/2018 [facility] SP Cocaine metabolite screen NEGATIVE NEGATIVE 01/24/2018 [facility] SP Opiates level NEGATIVE NE GATIVE 01/24/2018 [facility] Phencyclidine (PCP) ur NEGATIVE NEGATIVE 01/24/2018 [facility] Methadone NEGATIVE NE GATIVE 01/24/2018 [facility] Propoxyphene [Mass/volume] in Urine NEGATIVE 01/24/2018 [facility] Oxycodone [Mass/volume] in Urine NEGATIVE NEGATIVE 01/24/2018 [facility] SP Urine Drug Screen Note . [facility] Urine protein test by dipstick NEGATIVE NEGATIVE 01/24/2018 [facility] Urine leukocyte esterase detection by automated te st strip NEGATIVE SP NEGATIVE 01/24/2018 [facility] SP RBC count ur auto <5 0 - 5 [facility] Leukocytes [#/area] in Urine sediment by Automated count <5 SP 0 - 5 01/24/2018 [facility] Epithelial cells detection in urine sediment by li t microscopy <5 0 - 5 01/24/2018 [facility] SP Cocaine metabolite screen NEGATIVE NEGATIVE SP 01/24/2018 [facility] SP Opiates level NEGATIVE NE GATIVE 01/24/2018 [facility] Phencyclidine (PCP) ur NEGATIVE NEGATIVE 01/24/2018 [facility] Methadone NEGATIVE NE GATIVE 01/24/2018 [facility] Propoxyphene [Mass/volume] in Urine NEGATIVE 01/24/2018 [facility] Oxycodone [Mass/volume] in Urine NEGATIVE NEGATIVE 01/24/2018 [facility] SP Urine Drug Screen Note . [facility] White blood cell count 7.0 4.0 - 11.5 01/24/2018 [facility] RBC count 3.57 3.80 - 5.20 [facility] Blood hemoglobin measurement (mass/ volume) 8.6 10.5 SP- 15.7 01/24/2018 [facility] SP Hematocrit 27.6 34.0 - 50.0 SP 01/24/2018 [facility] MCV (mean corpuscular volume) determination 77.4 78 SP- 98 01/24/2018 [facility] SP Mean corpuscular hemoglobin ( MCH) determination 24 .0 SP 26.2 - 33.4 01/24/2018 [facility] Mean corpuscular hemoglobin concentration (MCHC) d etermination 31.0 SP 31.5 - 36.2 01/24/2018 [facility] SP RDW 15.7 11.5 - 15.5 [facility] Platelets bld 289 137 - 3 38 SP 01/24/2018 [facility] Blood platelet mean volume 6.7 8.4 - 11.8 SP 01/24/2018 [facility] SP Blood band neutrophils/100 leukocytes 70.7 44.4 - SP 01/24/2018 [facility] Serum or plasma glucose measurement (mass/volume) 117 SP 74 - 106 01/24/2018 [facility] Serum or plasma urea nitrogen measurement (mass/vo lume) 11 SP 6 - 20 01/24/2018 [facility] SP Osmolality ser 276 280 - 3 00 01/24/2018 [facility] Creatinine measurement 0.7 0.50 - 0.90 01/24/2018 [facility] Estimated glomerular filtration rate (GFR) determi nation >60.00 SP 01/24/2018 [facility] SP Albumin-globulin ratio ser 1.2 >1.0 01/24/2018 [facility] Bilirubin total <0.3 0.0- 1.2 SP 01/24/2018 [facility] AST 20 15 - 32 01/24/2018 [facility] SPCenter ALT (SGPT) ser/plas 25 0 - 33 SP 01/24/2018 [facility] NT-proBNP measurement 507 0 - 1 25 01/24/2018 [facility] ALP ser/plas 98 35 - 105 [facility] Sodium level 138 135 - 145 [facility] Potassium 4.5 3.5 - 5.2 [facility] Chloride measurement 102 98 - 1 08 01/24/2018 [facility] CO2 25 21 - 32 01/24/2018 [facility] Serum or plasma thyroid stimulating hormone (TSH) measurement 1.66 SP 0.36 - 3.74 01/24/2018 [facility] SP Troponin I ser/plas <0.30 0.0 - 0.5 01/24/2018 [facility] Magnesium 1.6 1.6 - 2.6 [facility] Total protein 6.5 6.6 - 8 .7 01/24/2018 [facility] Albumin 3.6 3.5 - 5.2 [facility] Globulin ser 2.9 [facility] Albumin-globulin ratio ser 1.2 >1.0 01/24/2018 [facility] Serum or plasma thyroid stimulating hormone (TSH) measurement 1.66 SP 0.36 - 3.74 01/24/2018 [facility] SP Troponin I ser/plas <0.30 0.0 - 0.5 01/24/2018 [facility] ALT (SGPT) ser/plas 25 0 - 33 01/24/2018 [facility] NT-proBNP measurement 507 0 - 1 25 01/24/2018 [facility] ALP ser/plas 98 35 - 105 [facility] Serum or plasma thyroid stimulating hormone (TSH) measurement 1.66 SP 0.36 - 3.74 01/24/2018 [facility] SP Troponin I ser/plas <0.30 0.0 - 0.5 01/24/2018 [facility] D-dimer 594 <500 01/24/2018 [facility] Serum or plasma urea nitrogen/ creatinine ratio 15. 7 SP 12 - 20 01/24/2018 [facility] SP Sodium level 138 135 - 145 [facility] Potassium 4.5 3.5 - 5.2 [facility] Chloride measurement 102 98 - 1 08 01/24/2018 [facility] CO2 25 21 - 32 01/24/2018 [facility] Anion gap measurement 15.5 12 - 20 01/24/2018 [facility] Calcium level 8.9 8.6 - 1 0.0 01/24/2018 [facility] Magnesium 1.6 1.6 - 2.6 [facility] Total protein 6.5 6.6 - 8 .7 01/24/2018 [facility] Albumin 3.6 3.5 - 5.2 [facility] Globulin ser 2.9 [facility] Albumin-globulin ratio ser 1.2 >1.0 01/24/2018 [facility] Bilirubin total <0.3 0.0- 1.2 01/24/2018 [facility] AST 20 15 - 32 01/24/2018 [facility] ALT (SGPT) ser/plas 25 0 - 33 01/24/2018 [facility] NT-proBNP measurement 507 0 - 1 25 01/24/2018 [facility] ALP ser/plas 98 35 - 105 [facility] D-dimer 594 <500 01/24/2018 [facility] Globulin ser 2.9 [facility] HCG ur QL NEGATIVE NEG [facility] Color of Urine by Auto LIGHT YELLOW 12/24/2017 [facility] Urine appearance determination CLEAR CLEAR 12/24/2017 [facility] SP Glucose [Presence] in Urine by Automated test stri p NEGATIVE SP NEGATIVE 12/24/2017 [facility] SP Urine total bilirubin measurement (mass/volume) NE GATIVE SP NEGATIVE 12/24/2017 [facility] SP Ketones [Mass/volume] in Urine by Automated test s trip NEGATIVE SP NEGATIVE 12/24/2017 [facility] SP Specific gravity of Urine by Automated test strip 1.015 SP 1.003 - 1.030 12/24/2017 [facility] SP Urine blood detection by dipstick TRACE NEGATIVE SP 12/24/2017 [facility] SP Urine pH measurement 6.000 5 - 9 SP 12/24/2017 [facility] Urine protein test by dipstick NEGATIVE NEGATIVE SP 12/24/2017 [facility] Urine urobilinogen detection NORMAL 0.2 - 1.0 SP 12/24/2017 [facility] SP Nitrite ur dipstick NEGATIVE NE GATIVE SP 12/24/2017 [facility] Urine leukocyte esterase detection by automated te st strip NEGATIVE SP NEGATIVE 12/24/2017 [facility] SP RBC count ur auto <10 0 - 5 SP 12/24/2017 [facility] Leukocytes [#/area] in Urine sediment by Automated count <5 SP 0 - 5 12/24/2017 [facility] Epithelial cells detection in [facility] sediment [facility] <5 SP 0 - 5 12/24/2017 [facility] Automated urine sediment casts (number/area) None Detected SP None Detect 12/24/2017 [facility] SP Urine Culture Reflexed NO [facility] Amphetamine ur screen NEGATIVE NEGATIVE 12/24/2017 [facility] Urine barbiturates measurement (units/volume) NEGA TIVE SP NEGATIVE 12/24/2017 [facility] SP Benzodiazepines screen ur NEGATIVE NEGATIVE SP 12/24/2017 [facility] SP Cannabinoids ([id number]) measurement POSITIVE SP 12/24/2017 [facility] SP Cocaine metabolite screen POSITIVE NEGATIVE 12/24/2017 [facility] SP Opiates level NEGATIVE NE GATIVE 12/24/2017 [facility] Phencyclidine (PCP) ur NEGATIVE NEGATIVE SP 12/24/2017 [facility] Methadone NEGATIVE NE GATIVE SP 12/24/2017 [facility] Propoxyphene [Mass/volume] in Urine NEGATIVE SP 12/24/2017 [facility] SP Oxycodone [Mass/volume] in Urine NEGATIVE NEGATIVE 12/24/2017 [facility] Urine Drug Screen Note . [facility] HCG ur QL NEGATIVE NEG [facility] HCG ur QL NEGATIVE NEG [facility] Serum or plasma creatine kinase MB (CK-MB) measurement by immunoassay 5.7 0.0 - 3.6 12/24/2017 [facility] Myoglobin 186 25 - 58 [facility] Myoglobin 186 25 - 58 [facility] Creatine kinase measurement 985 20 - 180 12/24/2017 [facility] Troponin I ser/plas <0.30 0.0 - 0.5 12/24/2017 [facility] Serum or plasma creatine kinase MB (CK-MB) measurement by immunoassay 5.7 0.0 - 3.6 12/24/2017 [facility] Myoglobin 186 25 - 58 [facility] Creatine kinase measurement 985 20 - 180 12/24/2017 [facility] Whole blood INR measurement 1.09 12/24/2017 [facility] Whole blood INR measurement 26.2 22.5 - 37.0 12/24/2017 [facility] Whole blood INR measurement 26.2 22.5 - 37.0 12/24/2017 [facility] White blood cell count 9.1 4.0 - 11.5 12/24/2017 [facility] RBC count 3.82 3.80 - 5.20 [facility] Blood hemoglobin measurement (mass/ volume) 9.5 10.5 SP- 15.7 12/24/2017 [facility] SP Hematocrit 30.0 34.0 - 50.0 12/24/2017 [facility] MCV (mean corpuscular volume) determination 78.5 78 SP- 98 12/24/2017 [facility] SP Mean corpuscular hemoglobin ( MCH) determination 24 .9 SP 26.2 - 33.4 12/24/2017 [facility] Mean corpuscular hemoglobin concentration (MCHC) d etermination 31.7 SP 31.5 - 36.2 12/24/2017 [facility] SP RDW 15.6 11.5 - 15.5 [facility] Platelets bld 386 137 - 3 38 SP 12/24/2017 [facility] Blood platelet mean volume 6.5 8.4 - 11.8 12/24/2017 [facility] SP Blood band neutrophils/100 leukocytes 68.7 44.4 - 12/24/2017 [facility] SP Body fluid lymphocytes/100 leukocytes 23.0 10.0 - 12/24/2017 [facility] SP [place] % 7.3 3.6 - 12.04 [facility] Eosinophil % 0.1 0.0 - 5 .41 12/24/2017 [facility] Basophil % 0.9 0.0 - 0.79 [facility] Prothrombin time 11.9 10.3 - 12.3 12/24/2017 [facility] Whole blood INR measurement 1.09 12/24/2017 [facility] Whole blood INR measurement 26.2 22.5 - 37.0 12/24/2017 [facility] Serum or plasma glucose measurement (mass/volume) 146 SP 74 - 106 12/24/2017 [facility] Serum or plasma urea nitrogen measurement (mass/vo lume) 28 SP 6 - 20 12/24/2017 [facility] SP Osmolality ser 282 280 - 3 00 SP 12/24/2017 [facility] Creatinine measurement 0.9 0.50 - 0.90 12/24/2017 [facility] Estimated glomerular filtration rate (GFR) determi nation >60.00 12/24/2017 [facility] Serum or plasma urea nitrogen/ creatinine ratio 31. 1 SP 12 - 12/24/2017 [facility] SP Sodium level 137 135 - 145 [facility] Potassium 3.3 3.5 - 5.2 [facility] Chloride measurement 97 98 - 10 8 SP 12/24/2017 [facility] CO2 27 21 - 32 12/24/2017 [facility] Anion gap measurement 16.3 12 - 20 12/24/2017 [facility] Calcium level 9.1 8.6 - 1 0.0 12/24/2017 [facility] Magnesium 1.7 1.6 - 2.6 [facility] Total protein 7.0 6.6 - 8 .7 12/24/2017 [facility] Albumin 3.7 3.5 - 5.2 [facility] Globulin ser 3.3 [facility] Albumin-globulin ratio ser 1.1 >1.0 12/24/2017 [facility] Bilirubin total <0.3 0.0- 1.2 12/24/2017 [facility] AST 44 15 - 32 12/24/2017 [facility] ALT (SGPT) ser/plas 25 0 - 33 12/24/2017 [facility] NT-proBNP measurement 1416 0 - 125 12/24/2017 [facility] ALP ser/plas 84 35 - 105 [facility] Prothrombin time 11.9 10.3 - 12.3 12/24/2017 [facility] Uric acid, serum 3.8 2.4 - 5 .7 12/01/2017 [facility] D-dimer 1589 <500 [facility] Uric acid, serum 3.8 2.4 - 5 .7 12/01/2017 [facility] Automated erythrocyte sedimentation rate (ESR) 79 SP - 20 11/19/2017 [facility] SP Carcinoembryonic antigen (CEA) measurement 0.633 0 SP 4.7 11/19/2017 [facility] SP Hemoglobin A1c 5.6 4.0 - 6 .0 11/19/2017 [facility] Cholesterol 200 150 - 200 [facility] Triglycerides level 146 <150 11/19/2017 [facility] HDL 38 >65 11/19/2017 [facility] l LDL cholesterol, direct 151 <10 0 SP 11/19/2017 [facility] Cholesterol/HDL ratio 5.263 11/19/2017 [facility] Serum or plasma thyroid stimulating hormone (TSH) measurement 2.15 SP 0.36 - 3.74 11/19/2017 [facility] Free T4 1.14 0.93 - 1.7 [facility] Free triiodothyronine (T3) measurement 3.62 2.0 - SP 11/19/2017 [facility] SP T3 uptake 34.7 24.0 - 39.0 11/19/2017 [facility] T4 7.2 4.5 - 11.7 [facility] Hepatitis C virus antibody assay by recombinant im munoblot assay <0.1 0.0 - 0.9 11/19/2017 [facility] Bacterial urine culture Urine Bacteria [facility] Pathology Reports No Data Provided for This Section POS Diagnostic Reports Report Value Date Source POS Brain Pituitary w/wo contrast MRI Patient N gemma: LEIGH CORONADO POSDOB: 1980. Age: 38 years. Gender: Female. MR: [id number]. Location: [facility]. Provider: Amado Porter DO. EXAM: Brain Pituitary w/wo contrast MRI. PROVIDED CLINICAL HISTORY: Pituitary mass identified on a brain CT. TECHNIQUE: Multi-sequence, multi-planar MR of the brain without and with gadolinium contrast. Thin- section pre-and post contrast dynamic T1 images through the sella. CONTRAST: Dotarem, dose not provided by the performing technologist but available elsewhere in the medical record. COMPARISON: CT Brain performed 08/22/2018. FINDINGS: PITUITARY: -- Markedly enlarged heterogenous mass measuri ng 1.9 cm (AP) x 2.5 cm (medial-lateral) x 2.2 cm SP situated within the pituitary fossa and extending into the suprasellar region , contacting and slightly superiorly displacing the optic chiasm. The pituitary gland is inseparable from this mass. Features are consistent with microadenoma. -- Normally-situated neurohypophysis with expec kenroy T1 shortening. The infundibulum is not SP identified, likely compressed and displaced posteriorly. Smoothly contoured and expanded sella. Normal sellar contours. Unremarkable sphenoid sinus and cavernous sinus as imaged. BRAIN: No abnormal parenchymal, ependymal, or meningeal enhancement. No areas of abnormally- restricted diffusion in a pattern suggestive of acute or early subacute ischemia. No clinically significant white matter signal abnormality. No acute intracranial hemorrhage. No other fluid collection. No intracranial mass. No cerebellar tonsillar ectopia. Age- consistent brain parenchymal volume. VENTRICLES / CISTERNS / SHIFT: No hydrocephalus. No significant effacement of the basal cisterns or foramen magnum. No significant midline shift. VESSELS: No loss of flow voids within the major intracranial vessels or dural sinuses. Vessel and dural sinus patency are not adequately assessed without dedicated angiography or venography. BONES / SCALP: Old fracture of the medial right orbital floor with herniation of extraconal fat and a portion of the inferior rectus muscle into the upper right maxillary sinus. No acute fracture. No significant systemic marrow signal abnormality. No aggressive bony lesions. No significant extracranial soft tissue abnormality. IMAGED SINUSES / MASTOIDS / MISC: No significant sinus mucosal thickening. No significant paranasal sinus fluid. No significant mastoid signal abnormality. 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 Mass effect on the optic chiasm. No acute intracranial abnormality. SL: [id number] 08/23/2018 [facility] Carotid artery Doppler bilat US Patient Nam e: LEIGH CORONADO SPDOB: 1980; Age: 38 years Female MR: [id number] Study: Carotid artery Doppler bilat US 08/22/2018 22:59 CDT Clinical Indication: - TIA. Amaurosis fugax. COMPARISON: None TECHNIQUE: [place]wood-scale, color Doppler and spectral Doppler of the carotid arteries was performed. Any reported ICA stenoses indirectly reference the distal internal carotid diameter as the denominator for the stenosis measurement, utilizing consensus panel criteria. Patient body habitus limits detail. FINDINGS: RIGHT: Mild calcified plaque formation. ICA PSV 129 cm/sec CCA PSV 180 cm/sec ICA/CCA ratio 0.72 Vertebral flow is antegrade. External carotid artery is patent. LEFT: Mild calcified plaque formation. ICA PSV 87 cm/sec CCA PSV 152 cm/sec ICA/CCA ratio 0.57 Vertebral flow is antegrade. External carotid artery is patent. Right thyroid nodule measures 3.2 x 2.9 x 1.8 cm. IMPRESSION: 1. RIGHT: ICA stenosis 50-69% by velocity criteria . SP 2. LEFT: ICA stenosis <50% by velocity criteria. SP 3. Right thyroid mass, correlation for a right thy roid nodule is recommended. SPConsensus panel Doppler US criteria for diagnosis of ICA stenosis: Stenosis (%) ICA PSV (cm/sec) ICA/CCA ratio SP<50 <125 <2.0 50-69 125-230 2.0-4.0 SP>70 but less than >230 >4.0 near occlusion Near occlusion High, low, or Variable undetectable SL: [id number] 08/22/2018 [facility] Brain wo contrast CT EXAM: CT BRAIN WITHOUT CONTRAST SPDATE: 08/22/2018 8:45 PM CDT INDICATION: Headache. ADDITIONAL INFORMATION: . COMPARISON: None. TECHNIQUE: Routine axial CT images of the brain were obtained. IV contrast: None. CT imaging performed at this location utilizes radiation dose optimization techniques which include one or more of the following: -Automated exposure control SP -Adjustment of the mA and/or kV according to patie nt size SP -Use of iterative reconstruction technique SPCT Radiation Dose DLP 948 mGy-cm FINDINGS: Nonspecific low-density is present within the left occipital lobe may represent infarct or artifact. No acute intracranial hemorrhage detected. Gordon-white matter distinction is preserved. The ventricles are normal. The basal cisterns and sulci are normal in size. 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 The paranasal sinuses, orbits and mastoids are unremarkable. Old fracture to the medial aspect of the inferior right orbital wall with focal fat herniation. IMPRESSION: 1. Nonspecific low-density is present within the l eft occipital lobe may represent infarct or SP No acute intracranial hemorrhage detected. Please correlate with neurologic symptoms and dedicated MRI brain can be performed for further evaluation. 2. 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 This SP be a source of headache. Dedicated MRI brain can be performed for further evaluation as well. 3. Old fracture to the medial aspect of the inferi or right orbital wall with focal fat herniation. SP If there is further concern for intracranial pathology or acute stroke, MRI of the brain may be performed for complete assessment. SL: JOHN 08/22/2018 [facility] Chest 1view DX Clinical Indication: - ches t pain, dyspnea x 2 days; SPComparison: None FINDINGS: Single AP chest radiograph shows normal lung volumes without interstitial or airspace opacities, pleural effusions or pneumothorax. The heart size and pulmonary vasculature are normal. The trachea is midline. There are no clinically significant osseous abnormalities noted. IMPRESSION: No chest radiographic evidence of acute cardiopulmonary disease. SL: DENZEL 08/22/2018 [facility] Chest Pulmonary Embolism CTA CT THORAX: PE PROTOCOL SPClinical Indication: - r/o PE. Chest pain. History of PE. Comparison: CT 08/12/2018 TECHNIQUE: Sequential trans-axial images were obtained thru the chest and upper abdomen after administration of iodinated contrast. CT imaging was performed with exposure control parameters to reduce radiation dose. Coronal and sagittal reconstructions were obtained. Coronal MIP reformats were provided. 100 cc of intravenous contrast material was used for the exam. Dose: LIB=017.35 mGy-cm FINDINGS: PULMONARY EMBOLISM: Suboptimal opacification of the pulmonary arteries severely limits evaluation for pulmonary embolism. No evidence of a central pulmonary artery or overt proximal lobar artery filling defect. LUNG PARENCHYMA AND PLEURA: A 10 mm focal opacity within the right upper lobe (series 2 image 172) is identified with mild hazy interstitial opacities., new since the comparison study may represent a focal infiltrate. There are no pleural effusions. There is no pneumothorax. AIRWAY: The central airway is patent. HEART: The heart appears at the upper limits of normal for size. There is no pericardial effusion. VASCULAR STRUCTURES:The great vessels are normal in caliber. LYMPH NODES: No evidence of thoracic adenopathy. OSSEOUS STRUCTURES: No acute abnormality seen. VISUALIZED UPPER ABDOMEN: Gastric lap band. The partially imaged liver appears enlarged. Other: A 2.5 cm right inferior thyroid lobe heterogeneous nodule is redemonstrated. Further evaluation with thyroid ultrasound can be obtained. IMPRESSION: Suboptimal opacification of the pulmonary arteries severely limits evaluation for pulmonary embolism. No evidence of a central pulmonary artery or overt proximal lobar artery filling defect. Repeat imaging or VQ scan can be obtained as clinically warranted. A 10 mm focal opacity within the right upper lobe is identified with mild adjacent hazy interstitial opacities, new since the comparison study may represent a focal infiltrate. A 2.5 cm right inferior thyroid lobe heterogeneous nodule is redemonstrated. Further evaluation with thyroid ultrasound can be obtained. SL: [id number] 08/18/2018 [facility] 1view DX Chest, single view dated . SPHISTORY: Chest pain. Comparison is made to a prior study dated 08/12/2018. The heart is normal in size. The cardiomediastinal shadow is stable. The lungs appear clear. The pulmonary vasculature appears normal in caliber. No acute pleural space abnormalities are detected. IMPRESSION: 1. No radiographic evidence of acute cardiopulmona ry disease. SPSL: 131 08/17/2018 [facility] Pulmonary Embolism CTA CTA CHEST WIT H CONTRAST SPINDICATION: Chest pain, history of PE, evaluate for PE, off Xarelto, CT dose DLP 510 COMPARISON: Chest radiograph 08/12/2018 TECHNIQUE: CTA of the chest was performed after administration of intravenous contrast. Coronal, sagittal, and 3-D reformatted images were utilized. DISCUSSION: No pulmonary emboli are visible. The heart appears mildly enlarged. The aorta is patent and normal in caliber, without evidence of dissection. There is no stenosis at the origins of the supra-aortic great vessels. There is eventration of the bilateral diaphragms. There is mild mosaic groundglass attenuation of the lungs, potentially secondary to underinflation or possible mild pulmonary edema. There is otherwise no consolidation. There is no pleural effusion. The trachea and major bronchi are clear. There is a 2.5 cm inferior right thyroid nodule. Grossly, no suspicious lymphadenopathy or pulmonary nodules are identified. A gastric band is in place. There appears to be mild wall thickening of the distal esophagus. Limited evaluation of the upper abdomen is otherwise grossly unremarkable. BONES: No acute bony abnormalities are seen. IMPRESSION: 1. No evidence of pulmonary embolism. SP 2. Cardiomegaly. Mild mosaic groundglass attenuati on of the lungs could potentially be secondary SP mild pulmonary edema or may just be secondary to underinflation of the lungs. 3. Mild wall thickening of the distal esophagus canales ggests potential esophagitis. SP 4. A 2.5 cm right thyroid nodule. The [employer] [employer] (ACR) consensus guidelines for SPincidental thyroid nodules detected on CT or MRI recommend: Age < 35 years < 1 cm: No further evaluation >=1 cm: Evaluate with thyroid ultrasound Age >=35 years < 1.5 cm: No further evaluation >=1.5 cm: Evaluate with thyroid ultrasound SL:16 08/12/2018 [facility] Chest 1view DX Clinical Indication: - ches t pain, dyspnea x 2 hours SPComparison: None FINDINGS: The AP chest radiograph shows normal lung volumes without interstitial or airspace opacities, pleural effusions or pneumothorax. The cardiomediastinal contours are normal. The trachea is midline. There are no clinically significant osseous abnormalities noted. IMPRESSION: No chest radiographic evidence of acute cardiopulmonary disease. SL:82 08/12/2018 [facility] Chest Pulmonary Embolism CTA Procedure: CT Pulmonary Angiogram. SPClinical Indication: Previous pulmonary emboli, chest tightness, shortness of breath. Comparison: Chest radiograph 07/29/2018. TECHNIQUE: Sequential trans-axial images were obtained thru the chest and upper abdomen after administration of 100 cc Omnipaque 300 iodinated contrast. Coronal and sagittal MIP reconstructions were obtained (CT pulmonary angiogram). CT imaging performed at this location utilizes radiation dose optimization techniques which include one or more of the following: -Automated exposure control SP -Adjustment of the mA and/or kV according to patie nt size SP -Use of iterative reconstruction technique SPCT Radiation Dose DLP 736 mGy-cm FINDINGS: LUNG PARENCHYMA AND PLEURA: There are no lung nodules. No focal consolidation or significant interstitial lung disease is observed and no pleural effusion is identified. AIRWAY: The central airway is normal. . SPMEDIASTINUM: There is a 2.5 cm hypodense nodule in the right lobe of the thyroid gland. No significant mediastinal or hilar lymphadenopathy is observed. HEART: There is no evidence of RV strain. The cardiac chambers are otherwise unremarkable. There is no pericardial effusion. VASCULAR STRUCTURES: There are no segmental pulmonary emboli noted. The main, right and left pulmonary arteries are normal. The great vessels are unremarkable. The thoracic aorta is is free of aneurysm or dissection. The superior vena cava is unremarkable. VISUALIZED UPPER ABDOMEN: A lap band is present. OSSEOUS STRUCTURES: There are no definite significant osseous abnormalities seen. IMPRESSION: 1. No evidence of pulmonary emboli. SP 2. Right thyroid nodule, further assessment with t hyroid ultrasound may be helpful if indicated SP :[id number] 07/29/2018 [facility] Neck soft tissue wo contrast CT Clinical In dication: - sore throat SPComparison: None Technique: CT of the neck is performed with a multidetector CT. Coronal and sagittal reconstructions were obtained. No intravenous contrast was utilized, decreasing sensitivity. CT imaging performed at this location utilizes radiation dose optimization techniques which include one or more of the following: -Automated exposure control SP -Adjustment of the mA and/or kV according to patie nt size SP -Use of iterative reconstruction technique SPCT Radiation Dose DLP 466 mGy-cm FINDINGS: SOFT TISSUES: There are no neck masses noted. There are no fluid collections or definite abscesses. LYMPH NODES: There is no submandibular lymphadenopathy. There is no jugular chain or posterior cervical chain lymphadenopathy or masses. The palatine tonsils appear mildly enlarged. There is no associated airway compromise. The nasopharyngeal adenoids appear unremarkable. SALIVARY GLANDS: The submandibular and parotid glands are unremarkable. PARANASAL SINUSES AND AIRWAY: Mild mucosal thickening in the left maxillary sinus is noted. The paranasal sinuses are clear without soft tissue thickening or air-fluid levels. The nasopharyngeal, oropharyngeal, supraglottic and infraglottic airway is unremarkable. SUPRAHYOID NECK: The oropharynx, oral cavity, parapharyngeal space, and retropharyngeal space are normal on this limited noncontrast CT. INFRAHYOID NECK: The valleculae and piriform sinuses are normal. The larynx, hypopharynx, epiglottis and supraglottis are normal on this limited noncontrast CT. ORBITS: There is a remote fracture of the inferior orbital wall. The visualized orbits are otherwise unremarkable. VASCULAR STRUCTURES: The jugular veins and carotid vessels are unremarkable. OSSEOUS STRUCTURES: There are no fractures or dislocations. There are no lucencies at the bases of the mandibular teeth to suggest abscess. There are no radiopaque foreign bodies noted. THYROID GLANDS: There is a 2.2 cm hypodensity in the inferior right thyroid lobe. VISUALIZED LUNG APICES: There are no pulmonary masses or consolidation. If there is further concern for neck masses or malignancy, postcontrast neck CT , PET/CT imaging or MRI of the neck should be performed for complete assessment. IMPRESSION: 1. Mildly prominent bilateral palatine tonsils, w hich can be seen with tonsillitis. No associated SP compromise. 2. Negative limited noncontrast evaluation for pe ritonsillar abscess formation. SP 3. A 2.2 cm right thyroid lobe hypodensity, recom mend nonemergent thyroid sonogram SPSL: [id number] 07/29/2018 [facility] Chest 2 views DX Clinical Indication: Chest pain, shortness of breath.. SPComparison: None FINDINGS: PA and lateral views of the chest have been provided. Lungs are clear. Heart size is normal. Central pulmonary vasculature appears normal. No effusion. No pneumothorax. No radiographically apparent acute osseous abnormality. IMPRESSION: 1. No radiographically apparent acute cardiopulmon martha process. SP SL: [id number] 07/29/2018 [facility] Consultation Notes No Data Provided for This Section POS Discharge Summaries No Data Provided for This Section POS History and Physicals No Data Provided for This Section POS Vital Signs Vital Sign Value Date POS Source POS Respitory Rate 18 08/27/19 19 [facility] Systolic (mm Hg) 138 08/26 [facility] Diastolic (mm Hg) 81 08/26 [facility] Temperature Oral (F) 98.3 F 08/26/2018 [facility] Heart Rate 65 08/26/2018 [facility] Systolic (mm Hg) 130 08/25 [facility] Diastolic (mm Hg) 71 08/25 [facility] SP Respitory Rate 18 08/26/19 19 SP [facility] Heart Rate 74 08/25/2018 [facility] Temperature Oral (F) 98.3 F 08/25/2018 [facility] SP Systolic (mm Hg) 130 08/25 [facility] Diastolic (mm Hg) 78 08/25 [facility] SP Respitory Rate 18 08/26/19 19 [facility] SP Heart Rate 74 08/25/2018 [facility] Temperature Oral (F) 98.6 F 08/25/2018 SP [facility] SP BMI Calculated 55.99 08/23 SP [facility] SP Height 182.88 cm 08/23/2018 SP [facility] SP Weight 187.273 08/23/2018 SP [facility] SP Weight 190.909 08/22/2018 SP [facility] SP BMI Calculated 57.08 08/22 SP [facility] SP Height 182.88 cm 08/22/2018 SP [facility] SP Respitory Rate 18 08/19/19 19 SP [facility] SP Systolic (mm Hg) 138 08/18 SP [facility] SP Diastolic (mm Hg) 73 08/18 SP [facility] SP BMI Calculated 56.4 2018 SP [facility] SP Weight 188.636 08/18/2018 SP [facility] SP Height 182.88 cm 08/18/2018 SP [facility] SP Temperature Oral (F) 98.6 F 08/18/2018 SP [facility] SP Systolic (mm Hg) 137 08/18 SP [facility] SP Diastolic (mm Hg) 88 08/18 SP [facility] SP Respitory Rate 18 08/19/19 19 SP [facility] SP Heart Rate 93 08/18/2018 SP [facility] SP Respitory Rate 20 08/13/19 19 SP [facility] SP Systolic (mm Hg) 112 08/12 SP [facility] SP Diastolic (mm Hg) 51 08/12 SP [facility] SP Respitory Rate 25 08/13/19 19 SP [facility] SP Systolic (mm Hg) 146 08/12 SP [facility] SP Diastolic (mm Hg) 73 08/12 SP [facility] SP Respitory Rate 15 08/13/19 19 SP [facility] SP Systolic (mm Hg) 126 08/12 SP [facility] SP Diastolic (mm Hg) 66 08/12 SP [facility] SP Height 175.26 cm 08/12/2018 SP [facility] SP BMI Calculated 62.15 08/12 SP [facility] SP Weight 190.909 08/12/2018 SP [facility] SP Heart Rate 66 08/12/2018 SP [facility] SP Temperature Oral (F) 98.7 F 08/12/2018 SP [facility] SP Temperature Oral (F) 97.9 F 07/30/2018 SP [facility] SP Heart Rate 76 07/30/2018 SP [facility] SP Respitory Rate 18 07/31/19 19 SP [facility] SP Systolic (mm Hg) 111 07/30 SP [facility] SP Diastolic (mm Hg) 66 07/30 [facility] SP Respitory Rate 17 07/31/19 19 SP [facility] SP Heart Rate 83 07/30/2018 SP [facility] SP Temperature Oral (F) 97.9 F 07/30/2018 SP [facility] SP Systolic (mm Hg) 124 07/30 SP [facility] SP Diastolic (mm Hg) 80 07/30 SP [facility] SP Systolic (mm Hg) 106 07/30 SP [facility] SP Diastolic (mm Hg) 66 07/30 [facility] SP Respitory Rate 18 07/31/19 19 SP [facility] SP Heart Rate 72 07/30/2018 SP [facility] SP Temperature Oral (F) 98.0 F 07/30/2018 SP [facility] SP Weight 200.142 07/30/2018 SP [facility] SP BMI Calculated 59.84 07/30 SP [facility] SP Height 182.88 cm 07/30/2018 [facility] SP BMI Calculated 56.12 07/30 SP [facility] SP Weight 187.682 07/30/2018 [facility] SP Height 182.88 cm 07/30/2018 [facility] SP Encounters Location Location Details E ncounter Type POS Encounter Number Reason For Visit POS Provider ADM Date DC Date POS Status Source POS Registered Provider Navjot SONG [id number] TIM SONG 11/16/2017 [facility] Registered Clinic SP TIM SONG [facility] Registered Provider Navjot SONG [id number] TIM SONG 12/01/2017 [facility] Registered Clinic SP TIM SONG [facility] Discharged Inpatient SP FARSHAD SONG 12/04/2017 [facility] Registered Provider Navjot SONG [id number] TIM SONG 12/06/2017 [facility] Registered Clinic SP CERDICK CORTÉS MD [facility] Departed Emergency Room SP JACKSON SONG 12/24/2017 [facility] Registered Clinic SP TIM AMBEAUX PA SP [facility] Registered Provider Origi nated SP [id number] TIM AMBEAUX PA SP 01/12/2018 [facility] Registered Clinic SP TIM AMBEAUX PA SP [facility] Departed Emergency Room SP LALITHA ANGLIN MD SP 01/24/2018 [facility] Registered Provider Origi nated SP [id number] TIM AMBEAUX PA SP 01/25/2018 [facility] Discharged Recurring SP TIM AMBEAUX PA SP 02/18/2018 [facility] Registered Clinic SP TIM AMBEAUX PA SP [facility] Registered Clinic SP TIM AMBEAUX PA SP [facility] Registered Provider Origi nated SP [id number] TIM AMBEAUX PA SP 02/01/2018 [facility] Registered Clinic SP TIM AMBEAUX PA SP [facility] Departed Emergency Room SP LAYA HAWKINS MD 03/23/2018 SP 03/23/2018 [facility] Registered Provider Origi nated SP [id number] TIM AMBEAUX PA SP 04/25/2018 [facility] Registered Clinic SP TIM AMBEAUX PA SP [facility] Departed Emergency Room SP JACKSON MCFARLANE MD SP 05/10/2018 [facility] Observation SP [id number] Beck SP 07/30/2018 07/30/2018 SP [facility] Emergency SP [id number] Jacki Romero SP 08/12/2018 08/12/2018 SP [facility] Emergency SP [id number] Jacki Romero SP 08/18/2018 08/18/2018 SP [facility] Observation SP [id number] Cherie Finley SP 08/22/2018 08/26/2018 SP [facility] Departed Emergency Room SP LALITHA ANGLIN MD SP 09/22/2018 [facility] Procedures Procedure Code Date Perfomer POS Comments Source POS X-ray of chest, single view [id number] 09/21/2018 [facility] Computed tomography of head without contrast [id number] 09/21/2018 [facility] Computed tomography angiography of chest for pulmonary embolism [id number] 09/21/2018 [facility] LIPID PANEL [id number] [facility] COMPREHEN METABOLIC PANEL 25876 04/25/2018 [facility] GLYCOSYLATED HEMOGLOBIN TEST 98384 04/25/2018 [facility] URINE BACTERIA CULTURE 98370 04/25/2018 [facility] COMPLETE CBC W/AUTO DIFF WBC 53086 04/25/2018 [facility] ASSAY OF MAGNESIUM 99860 [facility] UR ALBUMIN QUANTITATIVE 05259 04/25/2018 [facility] URINALYSIS AUTO W/SCOPE 78950 04/25/2018 [facility] ROUTINE VENIPUNCTURE 14956 04/25/2018 [facility] X-ray of sacrum and coccyx, two or more views [id number] 03/23/2018 [facility] X-ray of lumbar spine, AP and lateral views [id number] 03/23/2018 [facility] EMERGENCY DEPT VISIT 63570 03/23/2018 [facility] X-RAY EXAM L-S SPINE 2/3 VWS 66019 03/23/2018 [facility] X-RAY EXAM SACRUM TAILBONE 10686 03/23/2018 [facility] SP THER/PROPH/DIAG INJ SC/IM 10982 03/23/2018 [facility] VITAMIN B-12 16179 02/16/20 18 [facility] ASSAY OF FOLIC ACID SERUM 22734 02/15/2018 [facility] SP CONTRST X-RAY UPPR GI TRACT 54827 01/27/2018 [facility] X-ray of upper gastrointestinal tract with small bowel follow throu gh SP 01/27/2018 [place] [facility] CT ANGIOGRAPHY CHEST 10612 01/24/2018 [facility] THER/PROPH/DIAG INJ [place] PUSH 55830 01/24/2018 [facility] TX/PRO/DX INJ NEW DRUG ADDON 08487 01/24/2018 [facility] ASSAY THYROID STIM HORMONE 46151 01/24/2018 [facility] ASSAY OF TROPONIN QUANT 19104 01/24/2018 [facility] FIBRIN DEGRADJ D-DIMER 90610 01/24/2018 [facility] ASSAY OF NATRIURETIC PEPTIDE 92894 01/24/2018 [facility] DRUG TEST PRSMV CHEM ANLYZR 66555 01/24/2018 [facility] ELECTROCARDIOGRAM TRACING 39370 01/24/2018 [facility] [place]/PRO/DX INJ SAME DRUG VOCATIONAL NURSE 40870 01/24/2018 [facility] MORPHINE SULFATE INJECTION J2270 01/24/2018 [facility] HYDRATE IV INFUSION ADD-ON 68082 12/24/2017 [facility] X-RAY EXAM CHEST 1 VIEW 45524 12/24/2017 [facility] CREATINE MB FRACTION 76194 12/24/2017 [facility] SP ASSAY OF CK (CPK) 08627 07/2017 [facility] SP ASSAY OF MYOGLOBIN 29749 [facility] PROTHROMBIN TIME 12366 07/2017 [facility] SP THROMBOPLASTIN TIME PARTIAL 80673 12/24/2017 [facility] URINE TEST 71628 12/24/2017 [facility] X-RAY EXAM CHEST 2 VIEWS 76724 [facility]/01/2017 [facility] BLOOD/URIC ACID 12622 12/01/2017 [facility] [place] [address] 12/01/2017 [facility] ASSAY OF CREATININE 23364 0 12/01/2017 [facility] X-ray of chest, two views [id number] 12/01/2017 [place] [facility] CARCINOEMBRYONIC ANTIGEN 71545 11/19/2017 [facility] ASSAY OF FREE THYROXINE 80261 11/19/2017 [facility] HEPATITIS C AB TEST 65199 0 11/19/2017 [facility] RBC SED RATE AUTOMATED 32094 11/19/2017 [facility] FREE ASSAY (FT-3) 78972 [facility] ASSAY OF THYROID (T3 OR T4) 40044 11/19/2017 [facility] ASSAY OF TOTAL THYROXINE 00931 11/19/2017 [facility] Appendectomy [id number] [facility] section [id number] [facility], [facility] ESWL - Extracorporeal shock wave lithotripsy of bile duct calculus [id number] [facility] Laparoscopic adjustable gastric banding<sup& gt;1</sup> [id number] 2011 [facility] Partial resection of colon [id number] [facility] [place] Assessment and Plan Assessment and Plan Date So urce POS Extracted from:Title: neuro SPAuthor: Dilia Metzger MD Date: 08/25/18 Impression and Plan A 1. persistent headache past few days with photo/ph benton-phobia and blurred vision- suspect migraine SP could be due to pituitary tumor pressure as well 2. 1.8cm pituitary tumor per head ct SP 3. obesity SP 4. atrial fib per pt SP 5. hx of PE- been not taking xarelto- but was also on eliquis SP 6. anemia SPP - No relief with imitrex subQ , prednisone SP - IM DHE SP - Increase topamax to 50 mg bid SP - Consider starting IV depacon 500 mg q8 if DHE do esnt help SP - Awaiting transfer to a facility with neurosurger y on board for pituitary adenoma SP - Will follow SP Extracted from:Title: neuro, dr. porter Author: Amado Porter DO Date: 08/23/18 Impression and Plan A 1. persistent headache past few days with photo/ph benton-phobia and blurred vision- suspect migraine SP 2. 1.8cm pituitary tumor per head ct SP 3. obesity SP 4. atrial fib per pt SP 5. hx of PE- been not taking xarelto- but was also on eliquis?? SP 6. anemia SPetc. P -pending brain mri- also do pituitary protocol SP -give one time dose of sc sumatriptan and toradol for headache SP -will follow SP Extracted from:Title: General Admission H&P * Author: Cherie Finley MD Date: 08/22/18 Impression and Plan 1. Intractable headache SP 2. Possible left occipital infarct vs artifact SP 3. Pituitary macroadenoma SP 4. HTN SP 5. Paroxysmal Afib SP 6. pmh of PE SP 7. Morbid obesity s/p gastric lap band SP 8. GERD SPPLAN: Admit to observation unit w/ telemetry monitoring Headache partially improved after morphine given in ER. Headache ddx: Migraine (most likely) vs Pit macroadenoma vs CVA Needs further evaluation and monitoring for CVA given CT findings and her risk factors for the same Will order MRI, Neurology consult in am Resume home meds once reconciled Symptom control GI VTE ppx Pt full code 08/26/2018 [facility] SP Extracted from:Title: Discharge Summary SPAuthor: Laney Wooten MD Date: 07/30/18 Hospital Discharge/Transfer Summary Patient Name: LEIGH CORONADO Admission Date: 07/30/2018 05:16 Discharge Date: 07/30/2018 15:06 Discharging Physician: Laney Wooten MD Code Status: No Code Status for this patient Consulting Physicians: Enedina Baker MD Office: Service: Gastroenterology Jerel Dixon MD Office: Service: Cardiology Diagnoses This Visit (R07.9) SP (J03.90) SPAcutechestpain(R07.9) Acutetonsillitis(J03.90) Thyroidnodule(E04.1) Other Diagnosis: Chest pain, unspecified (R07.9) Acute tonsillitis, unspecified (J03.90) Nontoxic single thyroid nodule (E04.1) Procedures: Procedures Laparoscopicadjustablegastricbanding Partialresectionofcolon Appendectomy Cesareansection ESWL-Extracorporealshockwavelithotripsyofbileductcalculus History of Present Illness: Patient is a 38-year-old woman with a past medical history significant for PE 9 months ago currently off Xarelto, history of anemia, blood transfusions, morbid obesity, gastric lap band, hypertension hyperlipidemia, carcinoid tumor, the presents with chest pain and sore throat. Patient states that she has been feeling dizzy and lightheaded for the last several weeks, feeling that her "equilibrium is off ". Over the last several days patient was also experiencing midsternal chest pain radiating to the left nonexertional also associated with shortness of breath. Patient denies hematochezia but does report dark stools. In addition, 2 days ago patient developed sore throat, odynophagia. Hospital Course/ Discharge Plan: Chest pain, resolved. Unremarkable telemetry. Completed lipid panel, hemoglobin A1c, troponins, TSH, echocardiogram. Cardiology consulted, recommendations appreciated. Patient to follow up with cardiology Lightheadedness, dizziness Possible 2/2 complicated migraine. Patient started on sumatryptan with improvement. Symptomatic microcytic anemia. Unremarkable hemoglobin, negative stool guaiac, anemia studies. Patient ran out of Xarelto several days ago. Her PE was 9 months ago. Will continue on Xarelto and patient to follow up with PCP. GI consulted, recommendations appreciated. Patient to follow with GI at discharge. Hypercoagulability, patient had a pulmonary embolism 9 months ago, will continue Xarelto. Strep throat, pharyngitis tonsillitis, continue Augmentin for 7 days. Lactic acidosis, resolved Leukocytosis likely due to strep throat, resolved 2.2 cm thyroid hypodensity, patient should follow- up with PCP/endocrinology and have dedicated SP and evaluation. Laboratory Data: [facility] BUN: 14 mg/dL (07/30/18) Hct: 30 % Low (07/30/18) Hgb: 9.4 g/dL Low (07/30/18) MCH: 22.3 pg Low (07/30/18) MCHC: 31.4 g/dL Low (07/30/18) MCV: 71.1 fL Low (07/30/18) MPV: 7.8 fL (07/30/18) Platelet: 309 K/CMM (07/30/18) RBC: 4.22 M/CMM (07/30/18) RDW: 17.4 % High (07/30/18) WBC: 9.6 K/CMM (07/30/18) CHD Risk: 3.94 (07/30/18) Chol: 197 mg/dL (07/30/18) HDL: 50 mg/dL Low (07/30/18) LDL (Calculated): 137 mg/dL High (07/30/18) Tri mg/dL (07/30/18) VLDL: 10 (07/30/18) Discharge Medications: Please see attached medication reconciliation Condition at Discharge: Stable Discharge Instructions: Please notify your physician if any of the following occur: Bleeding, Fever, Nausea, Pain, Shortness of breath, Signs of infection, Swelling Discharge Diet: Home Diet: Diet Heart Healthy Discharge Activity: As tolerated Appointments: Follow Up With Jerel Dixon MD, Call for appointment, within: As Needed, reason: Follow Up On Treatment Enedina Baker MD, Call for appointment, within: 2 Weeks, reason: Follow Up On Treatment Time spent during patient encounter: Hospital discharge day management, more than 30 minutes. Extracted from:Title: Cardiology Consultation Author: Jerel Dixon MD Date: 07/30/18 Impression and Plan 1. Atypical CP - rec'd NSAIDs. Echo reassuring. Lo w suspicion for ischemic origin. No further CV SP unless abnml trops or labile ECG changes. 2. Morbid obesity SP 3. Strep + SP 4. Anemia - outpt gi eval SPPlease call if further questions. Extracted from:Title: General Admission H&P * Author: Beck Saavedra MD PHD Date: 07/29/18 Impression and Plan Patient is a 38-year-old woman with a past medical history significant for PE 9 months ago currently off Xarelto, history of anemia, blood transfusions, morbid obesity, gastric BAND, hypertension hyperlipidemia, carcinoid tumor, the presents with chest pain and sore throat. Chest pain, will monitor on telemetry check lipid panel hemoglobin A1c, trend troponins, check TSH, echocardiogram, consult cardiology Lightheadedness, dizziness likely due to symptomatic anemia, will obtain stool guaiac anemia studies, consult GI Symptomatic microcytic anemia, trend hemoglobin, will obtain stool guaiac, anemia studies, consult GI. Patient ran out of Xarelto several days ago. Her PE was 9 months ago, will hold off anticoagulation until anemia evaluated Hypercoagulability, patient had a pulmonary embolism 9 months ago, she recently ran out of Xarelto, will hold off further anticoagulation until anemia evaluated Strep throat, pharyngitis tonsillitis, continue Augmentin Lactic acidosis, rehydrate Leukocytosis likely due to strep throat 2.2 cm thyroid hypodensity, patient should be advi sed to follow-up with endocrinology and have SP imaging once she is more clinically stable Prophylaxis, heparin sq per hospital protocol 07/30/2018 [facility] Plan of Care Plan of Care Date Source POS Discharge Date 09/22/18 2: 15am SP Instructions/Education Provided Pharyngitis Forms Provided Prescription Opioid Use Portal Welcome Letter Prescriptions See Medication Section Referrals TIM POTTER Address: [address] [place], [place] [phone] SP Additional Instructions/Education Recommend that you take the Augmentin 875 mg 2 times daily for 5 days, also take the Tylenol #3 as needed for pain, and Zofran 4 mg as needed for nausea. Follow up with your surgeon in next few days for re check of your condition, or otherwise return to the ED if your condition worsens. 09/22/2018 [facility] SP Discharge Date 05/10/18 4: 52pm SP Instructions/Education Provided Viral Respiratory Infection, Dkna-Du-Csmp Forms Provided Portal Welcome Letter Prescriptions See Medication Section Referrals TIM POTTER Address: [address] [place], [place] [id number] SP Additional Instructions/Education Rx Proair TATUM, re-eval by clinic MD in 1 week 05/10/2018 [facility] Discharge Date 03/23/18 1: 34pm SP Instructions/Education Provided Back Pain, Adult Fall Prevention in the Home Forms Provided Portal Welcome Letter Prescriptions See Medication Section Referrals TIM POTTER Address: [place] [address] Additional Instructions/Education DIAGNOSIS: BACK PAIN, MUSCLE SPASMS, [...] PACKS AND WARM COMPRESSES ALTERNATING STRETCHING EXERCISES 03/23/2018 [facility] Current inpatient/outpatient. The plan of care is currently unavail able. SP [facility] Discharge Date 01/24/18 6: 05pm SP Instructions/Education Provided Chest Wall Pain Hypertension Forms Provided Portal Welcome Letter Prescriptions See Medication Section Referrals TIM POTTER Address: [place] [address] Additional Instructions/Education Recommend that you continue your Xarelto and will add Tylenol #3 to be taken as needed for pain. Also add Hydralazine 10 mg 2 times daily for your blood pressure. Follow up with your primary doctor in 2 days for re check of your blood pressure, or otherwise return to the ED if your condition worsens. 01/24/2018 [facility] Discharge Date 12/24/17 9: 58am SP Instructions/Education Provided Rhabdomyolysis Chest Wall Pain, Ryuo-ss-Bfvn Substance Use Disorder Forms Provided Portal Welcome Letter Prescriptions See Medication Section Referrals TIM POTTER Address: [place] [address] SP Additional Instructions/Education AVOID SUBSTANCE (COCAINE) ABUSE. DRINK MORE FLUIDS. SEE INSIDE TESTER (DR CORTÉS) or YOUR PCP, FOR FURTHER CARDIOLOGY EVALUATION and CARE WITHIN 3-4 DAYS. IF ANY ACUTE WORSENING, SEEK IMMEDIATE MEDICAL ATTENTION. WORK EXCUSE FOR TODAY. TAKE 1 TABLET BABY ASPIRIN 81mg (ENTERIC COATED) DAILY WITH BREAKFAST. CAN TAKE TYLENOL NEEDED FOR ACHES/PAIN 12/24/2017 [facility] Lizz SONG Social History Social History Date Source POS Social History Problem Response Recorded Date/T susanna Onset Date Status SP Hx Alcohol Use No 10/21/2017 7:38am Not Applicable Not Applicable Hx Physical Abuse No 09/21/2018 9:34pm Not Applicable Not Applicable Smoking Status Start Date Stop Date Former smoker [facility] Social History TypeResponse SPSubstance Abuse Use: None. Alcohol Never Smoking Status Former smoker; Type: Cigarettes; Ready to change: Yes; Concerns about tobacco use in household: No; Exposure to Tobacco Smoke None; Cigarette Smoking Last 365 Days No; Reg Smoking Cessation Counseling Yes; Stopped at age: 37; entered on: 07/30/18 07/30/2018 [facility] Social History TypeResponse SPSubstance Abuse Use: None. Alcohol Never Smoking Status Former smoker; Type: Cigarettes; Ready to change: Yes; Concerns about tobacco use in household: No; Exposure to Tobacco Smoke None; Cigarette Smoking Last 365 Days No; Reg Smoking Cessation Counseling Yes; Stopped at age: 37; entered on: 08/22/18 07/30/2018 [facility] Family History No Data Provided for This Section POS Advance Directives Order Name Results Value POS Source POS Advance Directives Advance Directives Directive SP Recorded Date/Time Advance Directives No 06/26/15 2:50pm Advance Directive on File No 09/21/18 9:34pm Directive to Physicians/Living Will No 06/26/15 2:50pm Health Care Proxy No 06/26/15 2:50pm Name of Surrogate/Decision Maker BLANCA CORONADO 09/21/18 9:28pm Organ Donor No 06/26/15 2:50pm Medical Power of Threading Machine Feeder Automatic No 06/26/15 2:50pm Patient/Family Given Education Material R/T Directives? Y - 09/21/18..LAN 09/21/18 9:34pm 09/22/2018 [facility] Advance Directives Advance Directives Directive SP Recorded Date/Time Advance Directives No 06/26/15 2:50pm Directive to Physicians/Living Will No 06/26/15 2:50pm Health Care Proxy No 06/26/15 2:50pm Organ Donor No 06/26/15 2:50pm Medical Power of Threading Machine Feeder Automatic No 06/26/15 2:50pm Patient/Family Given Education Material R/T Directives? Y - 05/10/18....SBM 05/10/18 3:47pm 05/10/2018 [facility] SP Advance Directives Advance Directives Directive SP Recorded Date/Time Advance Directives No 06/26/15 2:50pm Advance Directive on File No 03/23/18 12:10pm Directive to Physicians/Living Will No 06/26/15 2:50pm Health Care Proxy No 06/26/15 2:50pm Organ Donor No 06/26/15 2:50pm Medical Power of Threading Machine Feeder Automatic No 06/26/15 2:50pm Patient/Family Given Education Material R/T Directives? Y - 03/23/18....SB 03/23/18 12:47pm 03/23/2018 [facility] SP Advance Directives Advance Directives Directive SP Recorded Date/Time Advance Directives No 06/26/15 2:50pm Directive to Physicians/Living Will No 06/26/15 2:50pm Health Care Proxy No 06/26/15 2:50pm Organ Donor No 06/26/15 2:50pm Medical Power of Threading Machine Feeder Automatic No 06/26/15 2:50pm 02/19/2018 [facility] SP Advance Directives Advance Directives Directive SP Recorded Date/Time Advance Directives No 06/26/15 2:50pm Advance Directive on File No 01/24/18 2:32pm Directive to Physicians/Living Will No 06/26/15 2:50pm Health Care Proxy No 06/26/15 2:50pm Organ Donor No 06/26/15 2:50pm Medical Power of Threading Machine Feeder Automatic No 06/26/15 2:50pm Patient/Family Given Education Material R/T Directives? Y - 01/24/18..AW 01/24/18 4:54pm 01/24/2018 [facility] SP Advance Directives Advance Directives Directive SP Recorded Date/Time Advance Directives No 06/26/15 2:50pm Advance Directive on File No 12/24/17 5:54am Directive to Physicians/Living Will No 06/26/15 2:50pm Health Care Proxy No 06/26/15 2:50pm Organ Donor No 06/26/15 2:50pm Medical Power of Threading Machine Feeder Automatic No 06/26/15 2:50pm Patient/Family Given Education Material R/T Directives? Y - 12/24/17...[place] 12/24/17 7:07am 12/24/2017 [facility] Lizz SONG Functional Status No Data Provided for This Section POS Procedures Procedure Status Date Provider(s) EMERGENCY DEPT VISIT Completed 10/18/18 THER/PROPH/DIAG INJ IV PUSH Completed 10/18/18 CT HEAD/BRAIN W/O DYE Completed 10/18/18 X-RAY EXAM CHEST 1 VIEW Completed 10/18/18 TX/PRO/DX INJ NEW DRUG ADDON Completed 10/18/18 COMPLETE CBC W/AUTO DIFF WBC Completed 10/18/18 CREATINE MB FRACTION Completed 10/18/18 ASSAY OF CK (CPK) Completed 10/18/18 PROTHROMBIN TIME Completed 10/18/18 THROMBOPLASTIN TIME PARTIAL Completed 10/18/18 ASSAY OF TOTAL THYROXINE Completed 10/18/18 ASSAY THYROID STIM HORMONE Completed 10/18/18 ROUTINE VENIPUNCTURE Completed 10/18/18 ASSAY OF TROPONIN QUANT Completed 10/18/18 COMPREHEN METABOLIC PANEL Completed 10/18/18 FIBRIN DEGRADJ D-DIMER Completed 10/18/18 ASSAY OF NATRIURETIC PEPTIDE Completed 10/18/18 ELECTROCARDIOGRAM TRACING Completed 10/18/18 EMERGENCY DEPT VISIT Completed 11/29/18 X-RAY EXAM CHEST 1 VIEW Completed 11/29/18 COMPLETE CBC W/AUTO DIFF WBC Completed 11/29/18 CREATINE MB FRACTION Completed 11/29/18 ASSAY OF CK (CPK) Completed 11/29/18 PROTHROMBIN TIME Completed 11/29/18 THROMBOPLASTIN TIME PARTIAL Completed 11/29/18 ROUTINE VENIPUNCTURE Completed 11/29/18 ASSAY OF TROPONIN QUANT Completed 11/29/18 COMPREHEN METABOLIC PANEL Completed 11/29/18 ASSAY OF NATRIURETIC PEPTIDE Completed 11/29/18 ELECTROCARDIOGRAM TRACING Completed 11/29/18 X-ray of chest, single view Completed 10/18/18 JACKSON MCFARLANE MD Computed tomography of head without Completed 10/18/18 DAVID REID contrast X-ray of chest, single view Completed 11/29/18 STEFFEN MORALES MD X-ray of chest, single view Completed 12/02/18 NKECHI BARAHONA NP Computed tomography angiography of chest Completed 12/02/18 NKECHI BARAHONA NP for pulmonary embolism Computed tomography of abdomen and Completed 12/02/18 NKECHI BARAHONA NP pelvis with contrast NM scan myocardial perfusion planar w Active 12/05/18 KRISTEN SERNA BODILY INJURY ADJUSTER-C thallium, resting and stress studies Encounters Encounter Location Arrival/Admit Date Discharge/Depart Date Attending Provider Discharged [place] 12/02/18 11:22pm 12/05/18 6:00pm NEGRA BURNS [facility] Departed [place] 11/29/18 8:28pm 11/30/18 12:24am [facility] Departed [place] 10/18/18 6:53pm 10/18/18 11:00pm ARISTEO WOODS [facility] Recent Diagnosis Chest pain
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
--- OUTSIDE RECORDS SUMMARY | 2019-02-11 09:13 | XMS REPORT | Continuity of Care Document ---
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 Procedure(s): CT/CT ABD & PELVIS W Signed EXAM: CT Chest WITH contrast (PE Protocol) and CT abdomen and pelvis with contrast INDICATION: Short of breath COMPARISON: Chest CT 09/21/2018 TECHNIQUE: Chest abdomen and pelvis were scanned utilizing a multidetector helical scanner from the lung apex through the proximal thighs after administration of IV contrast. The chest was scanned in pulmonary artery phase, using pulmonary embolism protocol. The abdomen and pelvis were scanned in portal venous phase. Thin section reconstructions were obtained with special concentration on the pulmonary arteries. Coronal and sagittal reformations were obtained. Pulmonary embolism protocol was performed. IV CONTRAST: 100 mL of Isovue 370 COMPLICATIONS: None RADIATION DOSE: Total DLP: 2113 mGy*cm Estimated effective dose: (DLP x 0.014 x size factor) mSv CTDIvol has been reviewed. It is below the limits set by the Radiation Protocol Committee (RPC). Dose modulation, iterative reconstruction, and/or weight based adjustment of the mA/kV was utilized to reduce the radiation dose to as low as reasonably achievable. FINDINGS: LINES/ TUBES: None. LUNGS AND AIRWAYS: No filling defect is identified within the pulmonary arteries to the segmental level. The lungs are unremarkable. Airways are normal. PLEURA: The pleural spaces are clear. HEART AND MEDIASTINUM: A 2 cm hypodense nodule in the right thyroid lobe. No mediastinal, hilar or axillary lymphadenopathy. The heart is normal in size. There is no pericardial effusion. . Main pulmonary artery measures 3.4 cm in diameter, mildly prominent, and the ascending aorta measures 3.5 cm. HEPATOBILIARY: No focal hepatic lesions. No biliary ductal dilation. GALLBLADDER: No radio-opaque stones or sludge. No wall thickening. SPLEEN: No splenomegaly. PANCREAS: No focal masses or ductal dilatation. ADRENALS: No adrenal nodules KIDNEYS/URETERS: Kidneys enhance symmetrically. No hydronephrosis. No cystic or solid mass lesions. No stones. GI TRACT: No abnormal distention, wall thickening, or evidence of bowel obstruction. Gastric band device in place. Appendix is normal. PELVIC ORGANS/BLADDER: Unremarkable. LYMPH NODES: No lymphadenopathy. VESSELS: Unremarkable. PERITONEUM / RETROPERITONEUM: No free air or fluid. BONES: There are degenerative changes in the spine. SOFT TISSUES: Unremarkable. IMPRESSION: 1. No pulmonary emboli. No change compared to the multiple chest CTs performed within the last year. 2. A 2 cm right thyroid lobe nodule. Recommend nonemergent thyroid ultrasound for further evaluation. Signed by: Bennie Krishnamurthy DO on 12/02/2018 10:35 PM Transcribed By: [employer] SIGNED <electronically signed by Bennie Krishnamurthy DO> 34 37 Bennie Krishnamurthy DO December 02, 2018 10:35pm Bennie Krishnamurthy DO completed Patient: LEIGH CORONADO MR#: [id number] : 1980 Order[address] DrKoby: NKECHI BARAHONA NP Pt Status: REG ER Pt Location: [facility] Date/Time: 12/02/181954 Primary Care Physician: . CONSUELO PHYSICIAN Technologist(s): QUINTIN PALUMBO Procedure(s): [id number] CT/CT ANGIO CHEST W PE PROTOCOL Signed EXAM: CT Chest WITH contrast (PE Protocol) and CT abdomen and pelvis with contrast INDICATION: Short of breath COMPARISON: Chest CT 09/21/2018 TECHNIQUE: Chest abdomen and pelvis were scanned utilizing a multidetector helical scanner from the lung apex through the proximal thighs after administration of IV contrast. The chest was scanned in pulmonary artery phase, using pulmonary embolism protocol. The abdomen and pelvis were scanned in portal venous phase. Thin section reconstructions were obtained with special concentration on the pulmonary arteries. Coronal and sagittal reformations were obtained. Pulmonary embolism protocol was performed. IV CONTRAST: 100 mL of Isovue 370 COMPLICATIONS: None RADIATION DOSE: Total DLP: 2113 mGy*cm Estimated effective dose: (DLP x 0.014 x size factor) mSv CTDIvol has been reviewed. It is below the limits set by the Radiation Protocol Committee (RPC). Dose modulation, iterative reconstruction, and/or weight based adjustment of the mA/kV was utilized to reduce the radiation dose to as low as reasonably achievable. FINDINGS: LINES/ TUBES: None. LUNGS AND AIRWAYS: No filling defect is identified within the pulmonary arteries to the segmental level. The lungs are unremarkable. Airways are normal. PLEURA: The pleural spaces are clear. HEART AND MEDIASTINUM: A 2 cm hypodense nodule in the right thyroid lobe. No mediastinal, hilar or axillary lymphadenopathy. The heart is normal in size. There is no pericardial effusion. . Main pulmonary artery measures 3.4 cm in diameter, mildly prominent, and the ascending aorta measures 3.5 cm. HEPATOBILIARY: No focal hepatic lesions. No biliary ductal dilation. GALLBLADDER: No radio-opaque stones or sludge. No wall thickening. SPLEEN: No splenomegaly. PANCREAS: No focal masses or ductal dilatation. ADRENALS: No adrenal nodules KIDNEYS/URETERS: Kidneys enhance symmetrically. No hydronephrosis. No cystic or solid mass lesions. No stones. GI TRACT: No abnormal distention, wall thickening, or evidence of bowel obstruction. Gastric band device in place. Appendix is normal. PELVIC ORGANS/BLADDER: Unremarkable. LYMPH NODES: No lymphadenopathy. VESSELS: Unremarkable. PERITONEUM / RETROPERITONEUM: No free air or fluid. BONES: There are degenerative changes in the spine. SOFT TISSUES: Unremarkable. IMPRESSION: 1. No pulmonary emboli. No change compared to the multiple chest CTs performed within the last year. 2. A 2 cm right thyroid lobe nodule. Recommend nonemergent thyroid ultrasound for further evaluation. Signed by: Bennie Krishnamurthy DO on 12/02/2018 10:35 PM Transcribed By: [employer] SIGNED <electronically signed by Bennie Krishnamurthy DO> 34 39 Bennie Krishnamurthy DO December 05, 2018 9:24pm CEDRICK SALOMON MD completed Patient: LEIGH CORONADO MR#: [id number] : 1980 Pt Location: [facility] Date/Time: 12/02/18 1851 Primary Care Physician: . 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 F.A.A.C Measurements Intervals [place] Rate: 78 P: 8 NC: 151 QRS: 29 QRSD: 96 T: 33 QT: 401 QTc: 457 Interpretive Statements Sinus rhythm Low voltage, precordial leads Baseline wander in lead(s) I,II,aVR,aVL Electronically Signed On 12-05-2018 21:24:04 CDT by Polly Teran.A.A.C Transcribed By: [employer] SIGNED <electronically signed by ECDRICK SALOMON MD> 23 23 CEDRICK SALOMON MD December 12, 2018 10:38pm AYDIN SALCEDO MD completed Patient: LEIGH CORONADO MR#: [id number] : [address] LALITHA ANGLIN MD Pt Status: REG Pt Location: [facility] Date/Time: 12/12/182117 Primary Care Physician: . NO PHYSICIAN Technologist(s): QUINTIN PALUMBO Procedure(s): [id number] RAD/CHEST 1 VIEW Signed EXAMINATION: CHEST 1 VIEW INDICATION: Chest pain. COMPARISON: 12/02/2018 FINDINGS: AP view TUBES and LINES: None. LUNGS: Lungs are well inflated. There is no evidence of pneumonia or pulmonary edema. PLEURA: No pleural effusion or pneumothorax. HEART AND MEDIASTINUM: The cardiomediastinal silhouette is unremarkable. BONES AND SOFT TISSUES: No acute osseous lesion. Soft tissues are unremarkable. UPPER ABDOMEN: No free air under the diaphragm. IMPRESSION: No acute thoracic abnormality. Signed by: Dr. Aydin Salcedo MD on 12/12/2018 10:38 PM Transcribed By: [employer] SIGNED <electronically signed by AYDIN SALCEDO MD> 37 41 AYDIN SALCEDO MD December 14, 2018 4:56am CEDRICK SALOMON MD completed Patient: LEIGH CORONADO MR#: [id number] : 1980 Pt Location: [facility] Date/Time: 12/12/182117 Primary Care Physician: . NO PHYSICIAN Signed [facility] Test Date: 2018-12-12 Pat Name: LEIGH CORONADO Department: Room: Gender: F Construction Technician: : 1980 Requested By: Order Number: Gloria MD: Cedrick Salomon M.D. F.A.A.C Measurements Intervals [place] Rate: 89 P: 18 NC: 150 QRS: 18 QRSD: 104 T: 35 QT: 395 QTc: 481 Interpretive Statements Sinus rhythm Low voltage, precordial leads Electronically Signed On 12-14-2018 4:56:00 CDT by Polly Teran Transcribed By: [employer] SIGNED <electronically signed by CEDRICK SALOMON MD> 5 5 CEDRICK SALOOMN MD December 17, 2018 9:04pm AYDIN SALCEDO MD completed Patient: LEIGH CORONADO MR#: [id number] : [address] LAURA DAN MD Pt Status: REG ER Pt Location: [facility] Date/Time: 12/17/182026 Primary Care Physician: . NO PHYSICIAN Technologist(s): CALVIN HAILE Procedure(s): [id number] RAD/CHEST 1 VIEW Signed EXAMINATION: CHEST 1 VIEW INDICATION: Chest pain COMPARISON: 12/12/2018 FINDINGS: AP view TUBES and LINES: None. LUNGS: Limited by body habitus. Lungs are well inflated. Pulmonary vascular congestion and mild interstitial edema PLEURA: No significant pleural effusion or pneumothorax. HEART AND MEDIASTINUM: The cardiomediastinal silhouette is enlarged. BONES AND SOFT TISSUES: No acute osseous lesion. Soft tissues are unremarkable. UPPER ABDOMEN: No free air under the diaphragm. IMPRESSION: Enlarged cardiac silhouette, pulmonary vascular congestion, and mild interstitial edema. Signed by: Dr. Aydin Salcedo MD on 12/17/2018 9:04 PM Transcribed By: [employer] SIGNED <electronically signed by AYDIN SALCEDO MD> 03 05 AYDIN SALCEDO MD December 20, 2018 2:21am CEDRICK SALOMON MD completed Patient: LEIGH CORONADO MR#: [id number] : 1980 Pt Location: [facility] Date/Time: 12/17/182026 Primary Care Physician: . NO PHYSICIAN Signed [facility] Test Date: 2018-12-17 Pat Name: LEIGH CORONADO Department: Room: Gender: F Construction Technician: HCDAVID : 1980 Requested By: Order Number: Reading MD: Polly Teran.A.C Measurements Intervals [place] Rate: 87 P: 10 NC: 160 QRS: 29 QRSD: 100 T: 22 QT: 390 QTc: 470 Interpretive Statements Sinus rhythm Baseline wander in lead(s) V2 Electronically Signed On 12-20-2018 2:21:29 CDT by Polly Teran Transcribed By: [employer] SIGNED <electronically signed by CEDRICK SALOMON MD> 0 0 CEDRICK SALOMON MD Health Concerns No known health concerns documented Advance Directives Advance Directive Response Recorded Date/Time Advance Directives No June 26, 2015 2:50pm Advance Directive on File No December 31, 2018 7:13pm Directive to Physicians/Living Will No June 26, 2015 2:50pm Health Care Proxy No June 26, 2015 2:50pm Name of Surrogate/Decision Maker BLANCA CORONADO December 31, 2018 7:24pm Organ Donor No June 26, 2015 2:50pm Medical Power of Human Resources Office Assistant No June 26, 2015 2:50pm Chief Complaint and Reason for Visit Chief Complaint Dyspnea/Respdistress Reason for Visit [id number] Encounters Encounter Location(s) Arrival/Admit Date Discharge/Depart Date Provider(s) Departed [facility] December 31, 2018 December 31, 2018 [facility] Emergency Room [facility] 7:11pm 11:52pm DAVID Luis MD Discharged [facility] December 17December 19, 2018 NEGRA BURNS Inpatient (obs) [facility] 2018 10:26pm 5:05pm Ctr Departed [facility] December 12December 12, 2018 LALITHA ANGLIN Emergency Room [facility] 2018 8:57pm 11:20pm Jerrod VELASCO Ctr Discharged [facility] December 02December 05, 2018 NEGRA BURNS Inpatient (obs) [facility] 2018 11:22pm 6:00pm Ctr Departed [facility] November 29November 30, 2018 ANDREW Emergency Room [facility] 2018 8:28pm 12:24am STEFFEN VELASCO Ctr Assessments No Assessments Information Available Functional Status No Functional Status information available Goals No Goals Information Available Immunizations No Immunization Information Available Mental Status No Mental Status Information Available Medical Equipment No Medical Equipment Information available Insurance Providers Guarantor Leigh Coronado Address [address] [facility] [id number] Contact Info. Home Phone: Payer Policy Id Coverage Id Subscriber's Subscriber Id Effective Expiration Name Date Date Self Pay Leigh Coronado Insurance Plan of Treatment FOLLOW UP WITH PRIMARY CARE DOCTOR IN 2-3 DAYS. 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 RETURN TO ER FOR ANY FURTHER EMERGENCIES. Future Tests Future scheduled test information is unavailable Pending Tests Pending diagnostic test information is unavailable Future Visits Future appointment information is unavailable Referrals to Other Providers Reason for Referral Start Provider Provider Contact Provider Address Referral Date Information PHYSICIAN, NO Future Procedures Future procedure information is unavailable Future Medications Future medication information is unavailable Patient Instructions Nonspecific Chest Pain, [id number] Upper Respiratory Infection, Adult, Rssj-[id number] Allergic Rhinitis, Adult Social History Smoking Status Status Date of Observation Ex-smoker (finding) December 31, 2018 7:13pm Observation Status Observation Response Date of Response Hx Alcohol Use No December 03, 2018 12:22am Hx Physical Abuse No December 31, 2018 7:13pm Assigned Sex Female Vital Signs Vital Reading Result Collection Date/Time
--- OUTSIDE RECORDS SUMMARY | 2019-02-11 09:13 | XMS REPORT | Continuity of Care Document ---
:1980 Author Organization [facility] Address [address] [place] [address] Allergies, Adverse Reactions, Alerts Allergen Type Severity Reaction Last Updated Verified Status Losartan Allergy Severe ACHING, DIFFICULTY December 02, Yes Active ([id number]) BREATHING 2018 Medications Medication Status Dose Units [...] As 11:13pm Needed as needed for Anxiety Lisinopril & Active 1 ORAL Twice A Hydrochlorothi Day tuan 20/25MG * Metoprolol Discontinu 25 ORAL Twice A 30 [...] 4th, er As 2018, (acetaminophen). Needed 1:55am 2018 as needed for Pain Acetaminophen Discontinu 1 ORAL Three 40 September W/ Codeine #3 ed Times 13th, 2nd, * Daily 2016 2018 As 10:16am Needed for Pain Amoxicillin/Cl Discontinu 875 ORAL Twice A 14 7 September avulanate ed Day for 4th, er Potassium Infecti 2018, on 1:55am 2019 Enalapril Discontinu 2 ORAL Daily August Maleate/Hctz ed 2016 Enalapril Discontinu 1 ORAL Once Sept Maleate/Hctz ed Daily er 10/25 Mg 2017 Levofloxacin Discontinu 1 ORAL Daily September ed for , , Infecti 2016 2018 on 10:16am Lisinopril & Discontinu 1 ORAL Once 30 30 Septembe Septemb Hydrochlorothi ed Daily r 15th, er tuan * for 2018 , Hyperte 1:24pm 2019 nsion Lovastatin Discontinu 40 ORAL Once 30 30 Septembe Septemb ed Daily r 15th, er At 2018 , Bedtime 1:24pm 2018 for Hld Metoprolol Discontinu 1 ORAL Daily 18 September Succinate ed 2016 Omeprazole Discontinu 40 ORAL Once [place] ed Daily 2017 Ondansetron Discontinu 1 ORAL [...] Discontinu 15 ORAL Twice A 30 15 Septembe Septemb ed Day for r 15, er Pe 2018 , 1:24pm 2018 Rivaroxaban Discontinu 20 ORAL Once 30 30 Novembe December ed Daily r 15th, 5th, for Pe 2017 2018 1:24pm Rivaroxaban Discontinu 1 ORAL Daily 18 September ed 2016 Tamsulosin Hcl Discontinu 1 ORAL Daily September ed for , , Stent 2016 2018 Pain 10:16am Tramadol Hcl Discontinu 50 ORAL Every 6 15 30 Septemb ed Hours er As , 2018 as needed for Pain Tramadol Hcl Discontinu 50 ORAL Three October ed Times A , Day 2018 Problems Active Problems Medical Problem [...] back pain Resolved Pharyngitis Resolved Rhabdomyolysis Resolved Rt flank pain Resolved SOB (shortness of breath) Resolved Substance abuse Resolved Ureteric colic Resolved Procedures Procedure Date [...] 02, 2018 completed TX/PRO/DX INJ SAME DRUG TREE KILLER December 02, 2018 completed COMPLETE CBC W/AUTO DIFF WBC December 02, 2018 completed ROUTINE VENIPUNCTURE December 02, 2018 completed COMPREHEN METABOLIC PANEL December 02, 2018 completed TX/PRO/DX INJ SAME DRUG TREE KILLER December 02, 2018 completed HT MUSCLE IMAGE SPECT MULT December 02, 2018 completed CARDIOVASCULAR STRESS TEST December 02, 2018 completed TX/PRO/DX INJ SAME DRUG TREE KILLER December 02, 2018 completed December 02, 2018 [...] completed ELECTROCARDIOGRAM TRACING December 12, 2018 completed X-ray of chest, [...] chest, single view December 17, 2018 completed Relevant Diagnostic Tests and/or Laboratory Data Laboratory Results Test Date/Time Result Interpretation Reference Result Comment Performing Range Site White Blood November 5.9 4.0-11.5 [facility], 104 Count 2018 8:37pm [facility] [address] Red Blood Count November 4.02 3.80-5.20 [facility], 104 2018 8:37pm [place] [address] Hemoglobin November 10.8 10.5-15.7 [facility], 104 2018 8:37pm [place] [address] Hematocrit November 33.5 34.0-50.0 [facility], 104 2018 8:37pm [place] [address] Mean November 83.3 86-100 [facility], 104 Corpuscular 2018 Volume 8:37pm [place] [address] Mean November 26.9 26.2-33.4 [facility], 104 Corpuscular 2018 Hemoglobin 8:37pm [place] [address] Mean November 32.2 30-34 [facility], 104 Corpuscular 2018 Hemoglobin 8:37pm [place] [address] Concent Red Cell November 15.3 12.0-15.5 [facility], 104 Distribution 2018 Width 8:37pm [place] [address] Platelet Count November 237 165-450 [facility], 104 2018 8:37pm [place] [address] Mean Platelet November 9.2 9.4-12.6 [facility], 104 Volume 2018 8:37pm [facility] [address] Neutrophils (%) Kimberly 59.6 44.4-80.1 [facility], [address] (Auto) 2018 8:37pm [place] [address] Immature Kimberly 0.3 0.0-0.4 [facility] [address] Granulocyte % 2018 (Auto) 8:37pm [place] [address] Lymphocytes (%) Kimberly 28.3 10.0-50.0 [facility], [address] [facility] [address] (Auto) 2018 8:37pm [place] [address] Monocytes (%) Kimberly 5.8 3.6-12.0 [facility], [address] [facility] [address] (Auto) 2018 8:37pm [place] [address] Eosinophils (%) Kimberly 5.1 0.0-5.4 [facility], [address] [facility] (Auto) 2018 8:37pm [facility] [address] Basophils (%) Kimberly 0.9 0.1-1.2 [facility], [address] [facility] (Auto) 2018 8:37pm [facility] [address] Neutrophils # Kimberly 3.50 1.56-6.13 [facility], [address] [facility] (Auto) 2018 8:37pm [facility] [address] Absolute Kimberly 0.0 0.0-0.03 [facility], [address] [facility] Immature 2018 Granulocyte 8:37pm [facility] [address] (auto Lymphocytes # Kimberly 1.7 1.18-3.74 [facility], [address] [facility] (Auto) 2018 8:37pm [facility] [address] Monocytes # Kimberly 0.34 0.24-0.86 [facility], [address] [facility] [address] (Auto) 2018 8:37pm [place] [address] Eosinophils # Kimberly 0.30 0.04-0.36 [facility], [address] [facility] [address] (Auto) 2018 8:37pm [place] [address] Basophils # Kimberly 0.05 0.01-0.08 [facility], [address] [facility] (Auto) 2018 8:37pm [facility] [address] Nucleated Red Kimberly 0 0-0.2 [facility], [address] Blood Cells % 2018 8:37pm [facility] [address] Nucleated Red Kimberly 0 0 [facility], [address] [facility] [address] Blood Cells # 2018 8:37pm [place] [address] D-Dimer November 1326 <500 Results have [facility], [address] 2018 been 8:37pm broadcasted to [place] [address] patient's location and called to (GUCCI). By LA TERANBRIDGER 12/17/18 @2101 Prothrombin November 9.8 10.3-12.3 THERAPEUTIC [facility], [address] Time 2018 LEVEL: 1.5 to 8:37pm 1.9 times [place] [address] normal range of PT Prothromb Time November 0.89 Recommended [facility], [address] International 2018 therapeutic Ratio 8:37pm range for [place] [address] patients receiving warfarin (coumadin) therapy: INR is 2.0 to 3.0Recommended range for patients with mechanical prosthetic heart valves: INR is 2.5 to 3.5 Activated November 25.9 22.5-37.0 [facility], [address] Partial 2018 Thromboplast 8:37pm [place] [address] Time Urine Color November LIGHT [facility], 104 2018 YELLOW 9:22pm [place] [id number] Urine Kimberly CLEAR CLEAR [facility], 104 Appearance 2018 9:22pm [facility] [address] Urine Glucose November NEGATIVE NEGATIVE [facility], 104 (UA) 2018 9:22pm [place] [id number] Urine Bilirubin Kimberly NEGATIVE NEGATIVE [facility], 104 2018 9:22pm [facility] [address] Urine Ketones Kimberly NEGATIVE NEGATIVE [facility], 104 2018 9:22pm [place] [id number] Urine Specific Kimberly 1.020 1.003-1.03 [facility], [address] Bryce 2018 0 9:22pm [facility] [address] Urine Blood Kimberly NEGATIVE NEGATIVE [facility], 104 2018 9:pm [place] [id number] Urine pH November 5.500 5-9 [facility], 104 2018 9:pm [facility] [address] Urine Protein Kimberly NEGATIVE NEGATIVE [facility], 104 2018 9:pm [place] [id number] Urine Kimberly NORMAL 0.2-1.0 [facility], 104 Urobilinogen 2018 9:22pm [facility] [address] Urine Nitrate November NEGATIVE NEGATIVE [facility], 104 2018 9:22pm [facility] [address]166 Urine Leukocyte November NEGATIVE NEGATIVE [facility], 104 2018 9:22pm [facility] [address] Urine RBC November <1 0-5 [facility], 104 2018 9:22pm [facility] [address] Urine WBC November <1 0-5 [facility], 104 2018 9:22pm [facility] [address] Urine Kimberly 1-5 0-5 [facility], 104 Epithelial 2018 Cells 9:22pm [facility] [address] Urine Bacteria November None None [facility], [address] 2018 Detected Detect 9:22pm [facility] [address] Urine Casts November None None [facility], 104 2018 Detected Detect 9:22pm [facility] [address] Urine Culture November NO [facility], 104 Reflexed 2018 9:22pm [facility] [address] Random Glucose November 119 74-106 [facility], 104 2018 8:37pm [facility] [address] Blood Urea November 9 6-20 [facility], 104 Nitrogen 2018 8:37pm [facility] 118[address] Serum November 277 280-300 [facility], [facility] Osmolality 2018 8:37pm [facility] [address] Creatinine November 0.7 0.50-0.90 [facility], [facility] 2018 8:37pm [facility] [address] Glomerular November > 60.00 GFR RESULTS ARE [facility], [facility] Filtration Rate 2018 REPORTED IN Calc 8:37pm mL/min/1.73m2.N [facility] 22152 ormal GFR: >60mL/minModera tely decreased GFR: 30-59 mL/minSeverely decreased GFR: 15-29 mL/minKidney Failure (or Dialysis): <15 mL/minThe calculated eGFR is not valid for patients younger than 18 years or older than 75 years. BUN/Creatinine November 12.9 12-20 [facility], [address] Ratio 2018 8:37pm [facility] [address] Sodium Level November 139 135-145 [facility], [facility] 2018 8:37pm [facility] [address] Potassium Level November 4.0 3.5-5.2 [facility], 104 2018 8:37pm [facility] [address] Chloride Level November 98-108 [facility], 104 2018 8:37pm [facility] [address] Carbon Dioxide November 25 21-32 [facility], 104 Level 2018 8:37pm [facility] [address]98[address] Anion Gap November 14.0 12-20 [facility], 104 2018 8:37pm [facility] [address] Calcium Level November 9.4 8.6-10.0 [facility], 104 2018 8:37pm [facility] [address]78[address] Magnesium Level November 1.8 1.6-2.6 [facility], 104 2018 8:37pm [facility] [address] Total Protein November 7.0 6.6-8.7 [facility], 104 2018 8:37pm [facility] [address]87 Albumin November 3.4 3.5-5.2 [facility], 104 2018 8:37pm [facility] [address]507 Globulin November 3.6 [facility], 104 2018 8:37pm [facility] [address]68 Albumin/Globuli November 0.9 >1.0 [facility], n Ratio 2018 8:37pm [facility] 64766 Total Bilirubin November < 0.3 0.0-1.2 [facility], 104 2018 8:37pm [facility] 268[address] Aspartate Amino November 18 15-32 [facility], 104 Transf 2018 (AST/SGOT) 8:37[facility] [address] Alanine November 20 0-33 [facility], 104 Aminotransferas 2018 e (ALT/SGPT) 8:37pm [facility] 366[address] Lipase November 26 13-60 [facility], 104 [facility] 2018 8:37pm [facility] [address]84 WB-Jcf-J-Type November 558 0-125 [facility], 104 Natriuretic 2018 Peptide 8:37pm [facility] 82899 Total Alkaline November 125 35-105 [facility], 104 Phosphatase 2018 8:37pm [place] [id number] Thyroid November 1.90 0.36-3.74 [facility], [address] [place] [address] 2018 Hormone (TSH) 8:37pm [place] [id number] Creatine Kinase November 47 20-[address] 2018 4:45pm [place] [address] Troponin I November < 0.30 0.0-0.[address] 2018 clinical 4:45pm studies have [place] [address] shown elevations of cTnI in patients with myocardial injury, as seen in unstable angina pectoris, cardiac contusions, and heart transplants. Elevations have also been seen in patients with rhabdomyolysis and polymyositis.El evated troponin levels point to myocardial injury, but are not necessarily indicative of an ischemic mechanism. The term NC should be used when there is evidence [...] clinical examination and other findings. Creatine Kinase November < 1.0 0.0-3.6 DIAGNOSTIC [facility], [address] [place] [address] 2018 CITERIA: 4:45pm [facility] [place] [address] [facility] RELATIVE INDEX -----SUGGESTIVE OF NON-AMI < or=5 N/AGRAY ZONE (INCONCLUSIVE) > 5 < or=4SUGGESTIVE OF AMI >5 > 4 Myoglobin November < 25 25-58 [facility], [facility] 2018 8:37pm [place] [address] Diagnostic Imaging Reports Report Dictated Date/Time Dictated By Status November 29, 2018 9:42pm Bennie Krishnamurthy DO completed Patient: LEIGH CORONADO MR#: [id number] : [address] STEFFEN MORALES MD Pt Status: REG ER Pt Location: [facility] Date/Time: 11/29/182038 Primary Care Physician: . NO PHYSICIAN Technologist(s): TANIA BAUTISTA Procedure(s): [id number] RAD/CHEST 1 VIEW Signed EXAMINATION: CHEST 1 [...] DO on 11/29/2018 9:42 PM Transcribed By: [employer] SIGNED <electronically signed by Bennie Krishnamurthy DO> 41 44 Bennie Krishnamurthy DO November 30, 2018 10:20pm CEDRICK SALOMON MD completed Patient: LEIGH CORONADO MR#: [id number] : 1980 Pt Location: [facility] Date/Time: 11/29/182038 Primary Care Physician: . NO PHYSICIAN Signed [facility] Test Date: 2018-11-29 Pat Name: LEIGH CORONADO Department: Room: Gender: F Senior Qa Engineer: ROSI : 1980 Requested By: Order Number: Gloria MD: Cedrick Salomon M.D. F.A.A.C Measurements Intervals [place] Rate: 95 P: 32 OK: 158 QRS: 72 QRSD: 87 T: 58 QT: 364 QTc: 458 Interpretive Statements Sinus rhythm Electronically Signed On 11-30-2018 22:20:54 CDT by Polly Teran.A.A.C Transcribed By: [employer] SIGNED <electronically signed by CEDRICK SALOMON MD> 19 19 CEDRICK SALOMON MD December 02, 2018 7:53pm MITZY SANDERS MD completed Patient: LEIGH CORONADO MR#: [id number] : [address] NKECHI BARAHONA NP Pt Status: REG ER Pt Location: [facility] Date/Time: 12/02/18 185 Primary Care Physician: . NO PHYSICIAN Technologist(s): QUINTIN PALUMBO Procedure(s): [id number] RAD/CHEST 1 VIEW Signed EXAMINATION: CHEST 1 [...] M.D. on 12/02/2018 7:53 PM Transcribed By: [employer] SIGNED <electronically signed by MITZY LOONEY MD> 52 55 MITZY LOONEY MD December 02, 2018 10:35pm Bennie Krishnamurthy DO completed Patient: LEIGH CORONADO MR#: [id number] : 1980 Order[address] DrKoby: NKECHI BARAHONA NP Pt Status: REG ER Pt Location: [facility] Date/Time: 12/02/181954 Primary Care Physician: . NO PHYSICIAN Technologist(s): QUINTIN PALUMBO Procedure(s): [id number] CT/CT ABD & PELVIS W Signed EXAM: [...] DO on 12/02/2018 10:35 PM Transcribed By: [employer] SIGNED <electronically signed by Bennie Krishnamurthy DO> 34 37 Bennie Krishnamurthy DO December 02, 2018 10:35pm Bennie Krishnamurthy DO completed Patient: LEIGH CORONADO MR#: [id number] : 1980 Order[address] DrKoby: NKECHI BARAHONA NP Pt Status: REG ER Pt Location: [facility] Date/Time: 12/02/181954 Primary Care Physician: Koby CORDERO PHYSICIAN Technologist(s): QUINTIN PALUMBO Procedure(s): [id number] CT/CT ANGIO CHEST W PE PROTOCOL Signed [...] DO on 12/02/2018 10:35 PM Transcribed By: [employer] SIGNED <electronically signed by Bennie Krishnamurthy DO> 34 39 Bennie Krishnamurthy DO December 05, 2018 9:24pm CEDRICK SALOMON MD completed Patient: LEIGH CORONADO MR#: [id number] : 1980 Pt Location: [facility] Date/Time: 12/02/18 185 Primary Care Physician: . NO PHYSICIAN Signed [facility] Test Date: 2018-12-02 Pat Name: LEIGH CORONADO Department: Room: Gender: F Senior Qa Engineer: : 1980 Requested By: Order Number: Reading MD: Polly Teran.A.A.C Measurements Intervals [place] Rate: 78 P: 8 OK: 151 QRS: 29 QRSD: 96 T: 33 QT: 401 QTc: 457 Interpretive Statements Sinus rhythm Low voltage, precordial leads Baseline wander in lead(s) I,II,aVR,aVL Electronically Signed On 12-05-2018 21:24:04 CDT by Polly Teran.A.A.C Transcribed By: [employer] SIGNED <electronically signed by CEDRICK SALOMON MD> 23 23 CEDRICK SALOMON MD December 12, 2018 10:38pm AYDIN SALCEDO MD completed Patient: LEIGH CORONADO MR#: [id number] : [address] LALITHA ANGLIN MD Pt Status: REG Pt Location: [facility] Date/Time: 12/12/182117 Primary Care Physician: . NO PHYSICIAN Technologist(s): QUINTIN PALUMBO Procedure(s): [id number] RAD/CHEST 1 VIEW Signed EXAMINATION: CHEST 1 [...] MD on 12/12/2018 10:38 PM Transcribed By: [employer] SIGNED <electronically signed by AYDIN SALCEDO MD> 37 41 AYDIN SALCEDO MD December 14, 2018 4:56am CEDRICK SALOMON MD completed Patient: LEIGH CORONADO MR#: [id number] : 1980 Pt Location: [facility] Date/Time: 12/12/182117 Primary Care Physician: . NO PHYSICIAN Signed [facility] Test Date: 2018-12-12 Pat Name: LEIGH CORONADO Department: Room: Gender: F Senior Qa Engineer: : 1980 Requested By: Order Number: Reading MD: Polly Teran.A.A.C Measurements Intervals [place] Rate: 89 P: 18 OK: 150 QRS: 18 QRSD: 104 T: 35 QT: 395 QTc: 481 Interpretive Statements Sinus rhythm Low voltage, precordial leads Electronically Signed On 12-14-2018 4:56:00 CDT by Polly Teran.A.A.C Transcribed By: [employer] SIGNED <electronically signed by CEDRICK SALOMON MD> 5 5 CEDRICK SALOMON MD December 17, 2018 9:04pm AYDIN SALCEDO MD completed Patient: LEIGH CORONADO MR#: [id number] : [address] LAURA DAN MD Pt Status: REG ER Pt Location: [facility] Date/Time: 12/17/182026 Primary Care Physician: . NO PHYSICIAN Technologist(s): CALVIN HAILE Procedure(s): [id number] RAD/CHEST 1 VIEW Signed EXAMINATION: CHEST 1 [...] MD on 12/17/2018 9:04 PM Transcribed By: [employer] SIGNED <electronically signed by AYDIN SALCEDO MD> 03 05 AYDIN SALCEDO MD Health Concerns No known health concerns documented Advance Directives Advance Directive Response Recorded Date/Time Advance Directives No June 26, 2015 2:50pm Advance Directive on File No December 18, 2018 12:46am Directive to Physicians/Living No June 26, 2015 2:50pm Will Health Care Proxy No June 26, 2015 2:50pm Name of Surrogate/Decision Maker BROTHER-BLANCA CORONADO December 17, 2018 8 :39pm Organ Donor No June 26, 2015 2:50pm Medical Power of Transportation Maintenance Operator No June 26, 2015 2:50pm Patient/Family Given Education No December 18, 2018 12:46am Material R/T Directives? Chief Complaint and Reason for Visit Chief Complaint CP, CHF Reason for Visit Chest pain Hematuria Knee contusion Encounters Encounter Location(s) Arrival/Admit Date Discharge/Depart Date Provider(s) Discharged [facility] December 17, December 19, 2018 NEGRA BURSN Inpatient (obs) [facility] 2018 10:26pm 5:05pm Ctr Departed [facility] December 12December 12, 2018 LALITHA ANGLIN Emergency Room [facility] 2018 8:57pm 11:20pm E Ctr Discharged [facility] December 02December 05, 2018 NEGRA BURNS Inpatient (obs) [facility] 2018 11:22pm 6:00pm Ctr Departed [facility] November 29November 30, 2018 ANDREW Emergency Room [facility] 2018 8:28pm 12:24am [facility] Ctr Recent Diagnosis Onset Date Chest pain Hematuria Knee contusion Assessments Diagnosis Onset Date Resolution Status Chest pain Active Hematuria Active Knee contusion Active Functional Status No Functional Status information available Goals No Goals Information Available Immunizations No Immunization Information Available Mental Status No Mental Status Information Available Medical Equipment No Medical Equipment Information available Insurance Providers Guarantor Leigh Coronado Address [address] [facility] [address] [address] Contact Info. [place] Phone: Payer Policy Id Coverage Id Subscriber's Subscriber Id Effective Expiration Name Date Date [facility] [id number] Leigh Coronado [id number] [place] [address] Plan of Treatment Future Tests Future scheduled test information is unavailable Pending Tests Pending diagnostic test information is unavailable Future Visits Future appointment information is unavailable Referrals to Other Providers Referral information is unavailable Future Procedures Future procedure information is unavailable Future Medications Future medication information is unavailable Patient Instructions Shortness of Breath, Adult, Txoe-ss-Itaq Chest Wall Pain, Dyyd-eu-Nmqp Social History Smoking Status Status Date of Observation Current some day smoker December 18, 2018 12:46am Observation Status Observation Response Date of Response Hx Alcohol Use No December 03, 2018 12:22am Hx Physical Abuse No December 17, 2018 8:16pm Assigned Sex Female Vital Signs Vital Reading Result Collection Date/Time Hospital Discharge Instructions Additional Instructions Instructions Physician Documentation Barrera follow up instructions * If you have any questions or concerns, please contact [phone] and ask for the hospitalist on duty. If you are having a medical emergency, please report to the nearest emergency room in your area. * Access your patient portal or follow up with your PCP regarding any procedures or tests that have not yet been resulted. Follow up with: glass artist, PCP Follow up appointment in: 7 days Activity on discharge: as tolerated Diet on discharge: cardiac Condition on discharge: stable
[2019-02-11] MEDS ORDERED: ONDANSETRON 4 MG/2 ML VIAL ONE (09:33)
[2019-02-11] MEDS ORDERED: MORPHINE 4 MG/ML SYR ONE (09:33)
--- NOTE | 2019-02-11 09:52 | RAD REPORT ---
EXAM DESCRIPTION: RAD - Chest Single View - 02/11/2019 9:42 am CLINICAL HISTORY: CHEST PAIN Chest pain. COMPARISON: CHEST SINGLE VIEW dated 03/27/2014; CHEST SINGLE VIEW dated 04/14/2011; CHEST SINGLE VIEW d ated 11/27/2010 FINDINGS: Portable technique limits examination quality. The lungs are grossly clear. The heart is upper limit of normal in size. No displaced fractures. IMPRESSION: No acute intrathoracic process suspected.
--- NOTE | 2019-02-11 10:05 | RAD REPORT ---
EXAM DESCRIPTION: RAD - Knee Left 3 View - 02/11/2019 9:41 am CLINICAL HISTORY: PAIN COMPARISON: No comparisons FINDINGS: No fracture or dislocation. No joint effusion. Mild arthritic changes.
[2019-02-11 10:12] LABS: Absolute Lymphocytes (CBC) 1.9 K/uL (0.7-4.9); Basophils % 0.7 % (0-1.3); Hematocrit 35.2 % (36.0-45.0); RBC Red Blood Cell Count 4.12 M/uL (3.86-4.86)
[2019-02-11 10:28] LABS: ALT/SGPT 27 U/L (12-78); AST/SGOT 18 U/L (15-37); Alkaline Phosphatase 111 U/L (45-117); BUN Blood Urea Nitrogen 17 mg/dL (7-18); Bicarbonate 30 mmol/L (21-32); Bilirubin Direct < 0.1 mg/dL (0-0.2); Bilirubin Total 0.2 mg/dL (0.2-1.0); Glucose Level 131 mg/dL (74-106); Magnesium 1.9 mg/dL (1.8-2.4); NT PRO-BNP 36 pg/mL (<125); Potassium 4.1 mmol/L (3.5-5.1); Protein, Total 7.4 g/dL (6.4-8.2); Sodium Level 140 mmol/L (136-145); Troponin (Emerg Dept Use Only) < 0.02 ng/mL (0.0-0.045)
--- NOTE | 2019-02-11 12:42 | RAD REPORT ---
EXAM DESCRIPTION: CT - Head Brain Wo Cont - 02/11/2019 12:36 pm CLINICAL HISTORY: HEADACHE Headache, drowsiness COMPARISON: HEAD BRAIN W O CONTRAST dated 07/06/2014 TECHNIQUE: All CT scans are performed using dose optimization technique as appropriate and may inclu de automated exposure control or mA/KV adjustment according to patient size. FINDINGS: No intracranial hemorrhage, hydrocephalus or extra-axial fluid collection.No areas of brai n edema or evidence of midline shift. Mild mucosal thickening involves the sphenoid sinus is well as the right maxillary antrum. The calvar ium is intact. IMPRESSION: No acute intracranial abnormality.
[2019-02-11] MEDS ORDERED: HYDROCODONE/APAP 10/325 TAB ONE (12:49)
--- NOTE | 2019-02-11 13:02 | ER ---
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 Transition of care: patient was not received from another setting of care. Onset of symptoms was February 11, 2019. Risk Assessment: Do you want to hurt yourself or someone else? Patient reports no desire to harm self or others. Initial Sepsis Screen: Does the patient meet any 2 criteria? No. Patient's initial sepsis screen is negative. Does the patient have a suspected source of infection? No. Patient's initial sepsis screen is negative. Care prior to arrival: None. 09:13 Method Of Arrival: Wheelchair 09:13 Acuity: DANIEL 3 ph Historical: - Allergies: 09:20 losartan; ph - Home Meds: 09:20 Lisinopril Oral [Active]; metoprolol tartrate Oral [Active]; Eliquis oral oral [Active];ph - PMHx: 09:20 Hypertension; pulmonary embolism; Pneumonia; ph - PSHx: 09:20 Appendectomy; Lithotripsy; ; Lap Band; pituitary tumor rmoved; biopsy of ph thyroid; - Immunization history:: Adult Immunizations unknown. - Social history:: Smoking status: Patient/guardian denies using tobacco. - Ebola Screening: : No symptoms or risks identified at this time. Screenin:24 Abuse screen: Denies threats or abuse. Denies injuries from another. Nutritional ph screening: No deficits noted. Tuberculosis screening: No symptoms or risk factors identified. Fall Risk None identified. Assessment: 10:00 General: Appears in no apparent distress. uncomfortable, obese, well groomed, Behavior ph is cooperative, appropriate for age, anxious. Pain: Complains of pain in base of the skull and chest and left knee Pain currently is 8 out of 10 on a pain scale. Pain began chest pain x 2 months, knee and head pain x 2-3 days. 10:07 Neuro: Level of Consciousness is awake, alert, obeys commands, Oriented to person, ph place, time, situation, Reports headache in left occipital area. Cardiovascular: Reports chest pain, lightheadedness, nausea, shortness of breath, Capillary refill < 3 seconds in bilateral fingers Patient's skin is warm and dry. Edema is 2+ to left midcalf, left ankle, left foot, right midcalf, right ankle and right foot Rhythm is sinus rhythm Chest pain quality is pressure, is located in anterior chest wall began months ago episodes are intermittent. Respiratory: Reports shortness of breath on exertion Airway is patent Respiratory effort is even, unlabored, Respiratory pattern is regular, symmetrical, Denies cough. GI: Reports nausea, Patient currently denies abdominal pain, vomiting. : Reports pain in bilateral in lower back. EENT: Reports pain when swallowing. Derm: Skin is intact, Skin is pink, warm \\T\\ dry. Musculoskeletal: Circulation, motion, and sensation intact. Range of motion: intact in all extremities. 11:00 Reassessment: Patient appears in no apparent distress at this time. Patient and/or ph family updated on plan of care and expected duration. Pain level reassessed. Patient is alert, oriented x 3, equal unlabored respirations, skin warm/dry/pink. 12:15 Reassessment: Patient appears in no apparent distress at this time. Patient and/or ph family updated on plan of care and expected duration. Pain level reassessed. Patient is alert, oriented x 3, equal unlabored respirations, skin warm/dry/pink. Pt requesting more pain medication, ERP notified, see MAY. Vital Signs: 09:22 BP 156 / 82; Pulse 84; Resp 24; Temp 97.8; Pulse Ox 98% on R/A; Weight 215.46 kg; ph Height 6 ft. 1 in. (185.42 cm); Pain 8/10; 10:11 BP 126 / 68; Pulse 81; Resp 24; Pulse Ox 98% on R/A; ph 11:11 BP 137 / 76; Pulse 76; Resp 20; Pulse Ox 98% on R/A; ph 11:45 Weight 220.9 kg (M); iw 12:45 BP 145 / 78; Pulse 72; Resp 18; Temp 97.9(TE); Pulse Ox 100% on R/A; mh5 11:45 Body Mass Index 64.25 (220.90 kg, 185.42 cm) iw ED Course: 09:03 Patient arrived in ED. mr 09:10 Kevin Jack MD is Attending Physician. kdr 09:13 Alexandra Solano, DAVID is Primary Nurse. ph 09:17 Triage completed. ph 09:23 Arm band placed on Patient placed in an exam room, on a stretcher, on nuclear monitoring technician, ph on pulse oximetry. 09:24 Patient has correct armband on for positive identification. Placed in gown. Bed in low ph position. Call light in reach. Side rails up X2. nuclear monitoring technician on. Pulse ox on. NIBP on. Door closed. Noise minimized. Warm blanket given. Head of bed elevated. 09:32 Patient has correct armband on for positive identification. Placed in gown. Bed in low mh5 position. Call light in reach. Side rails up X2. Warm blanket given. nuclear monitoring technician on. Pulse ox on. NIBP on. 09:32 EKG done, by ED staff, reviewed by Kevin Jack MD. mh5 09:42 XRAY Chest (1 view) In Process Unspecified. EDMS 09:42 Knee Left 3 View XRAY In Process Unspecified. EDMS 09:59 No provider procedures requiring assistance completed. Inserted saline lock: 20 gauge ph in right antecubital area, using aseptic technique. Blood collected. Patient maintains SpO2 saturation greater than 95% on room air. 12:36 CT completed. Patient tolerated procedure well. Patient moved back from CT. mw3 12:37 CT Head Brain wo Cont In Process Unspecified. EDMS 13:20 IV discontinued, intact, bleeding controlled, No redness/swelling at site. Pressure ph dressing applied. Administered Medications: 09:58 Drug: Zofran 4 mg Route: IVP; Site: right antecubital; ph 11:10 Follow up: Response: No adverse reaction ph 10:00 Drug: morphine 4 mg Route: IVP; Site: right antecubital; ph 11:10 Follow up: Response: No adverse reaction; RASS: Alert and Calm (0) ph 12:56 Drug: [place] 10 mg-325 mg 1 tabs Route: PO; ph 13:15 Follow up: Response: No adverse reaction; RASS: Alert and Calm (0) ph Outcome: 13:02 Discharge ordered by . kdr 13:24 Patient left the ED. iw 13:24 Discharged to home ambulatory. ph 13:24 Condition: good 13:24 Discharge instructions given to patient, Instructed on discharge instructions, follow up and referral plans. medication usage, Demonstrated understanding of instructions, follow-up care, medications, Prescriptions given X 1. Signatures: Dispatcher [employer] EDMS Kevin Jack MD MD [facility] Farhat, Rafaela mr Lorena Krishna RN RN Alexandra Solano RN RN Sree, Raquel [facility] Delmy Ventura 3 Corrections: (The following items were deleted from the chart) 10:10 10:00 Pain: Complains of pain in base of the skull ph ph
--- NOTE | 2019-02-11 13:03 | EDPHYS ---
Physician Documentation [facility] Name: Shasta Coronado Age: 38 yrs Sex: Female : 1980 Arrival Date: 02/11/2019 Time: 09:03 Bed 4 Private MD: ED Physician Kevin Jack HPI: 02/11 10:17 This 38 yrs old Female presents to ER via Wheelchair with complaints of Chest kdr Pain, Leg Swelling. 10:17 The patient or guardian reports chest pain that is located primarily in the substernal kdr area, anterior chest wall, bilaterally. The pain does not radiate. 10:19 The patient has multiple c/o including left occipital head pain (a month - more kdr persistent the last few days), chest pain (last 4-6 months - since she had her pituitary surgery) and left knee pain (six days). Severity of symptoms: At their worst the symptoms were moderate severe just prior to arrival, in the emergency department the symptoms are unchanged. The patient has not experienced similar symptoms in the past. The patient has not recently seen a physician. Historical: - Allergies: 09:20 losartan; ph - Home Meds: 09:20 Lisinopril Oral [Active]; metoprolol tartrate Oral [Active]; Eliquis oral oral [Active];ph - PMHx: 09:20 Hypertension; pulmonary embolism; Pneumonia; ph - PSHx: 09:20 Appendectomy; Lithotripsy; ; Lap Band; pituitary tumor rmoved; biopsy of ph thyroid; - Immunization history:: Adult Immunizations unknown. - Social history:: Smoking status: Patient/guardian denies using tobacco. - Ebola Screening: : No symptoms or risks identified at this time. ROS: 10:19 Constitutional: Negative for fever, chills, and weight loss, Eyes: Negative for injury, kdr pain, redness, and discharge, ENT: Negative for injury, pain, and discharge, Neck: Negative for injury, pain, and swelling, Respiratory: Negative for shortness of breath, cough, wheezing, and pleuritic chest pain, Abdomen/GI: Negative for abdominal pain, nausea, vomiting, diarrhea, and constipation, Back: Negative for injury and pain, : Negative for injury, bleeding, discharge, and swelling, Skin: Negative for injury, rash, and discoloration, Psych: Negative for depression, anxiety, suicide ideation, homicidal ideation, and hallucinations, Allergy/Immunology: Negative for hives, rash, and allergies, Endocrine: Negative for neck swelling, polydipsia, polyuria, polyphagia, and marked weight changes, Hematologic/Lymphatic: Negative for swollen nodes, abnormal bleeding, and unusual bruising. 10:19 Cardiovascular: Positive for chest pain, Negative for edema, orthopnea, palpitations, paroxysmal nocturnal dyspnea. 10:19 Neuro: Positive for headache, Negative for altered mental status, dizziness, gait disturbance, hearing loss, loss of consciousness, numbness, seizure activity, speech changes, syncope, near syncope, tingling, tinnitus, tremor, visual changes. Exam: 10:19 Constitutional: This is a well developed, well nourished obese patient who is awake, kdr alert, and in very distress. Head/Face: Normocephalic, atraumatic. Eyes: Pupils equal round and reactive to light, extra-ocular motions intact. Lids and lashes normal. Conjunctiva and sclera are non-icteric and not injected. Cornea within normal limits. Periorbital areas with no swelling, redness, or edema. Neck: Trachea midline, no thyromegaly or masses palpated, and no cervical lymphadenopathy. Supple, full range of motion without nuchal rigidity, or vertebral point tenderness. No Meningismus. Chest/axilla: Normal chest wall appearance and motion. Nontender with no deformity. No lesions are appreciated. Cardiovascular: Regular rate and rhythm with a normal S1 and S2. No gallops, murmurs, or rubs. Normal PMI, no JVD. No pulse deficits. Respiratory: Lungs have equal breath sounds bilaterally, clear to auscultation and percussion. No rales, rhonchi or wheezes noted. No increased work of breathing, no retractions or nasal flaring. Abdomen/GI: Soft, non-tender, with normal bowel sounds. No distension or tympany. No guarding or rebound. No evidence of tenderness throughout. Back: No spinal tenderness. No costovertebral tenderness. Full range of motion. Skin: Warm, dry with normal turgor. Normal color with no rashes, no lesions, and no evidence of cellulitis. Neuro: Awake and alert, GCS 15, oriented to person, place, time, and situation. Cranial nerves II-XII grossly intact. Motor strength 5/5 in all extremities. Sensory grossly intact. Cerebellar exam normal. Normal gait. Psych: Awake, alert, with orientation to person, place and time. Behavior, mood, and affect are within normal limits. 10:19 Musculoskeletal/extremity: The patient states that she has pain in her left knee and that it is swollen. . Vital Signs: 09:22 BP 156 / 82; Pulse 84; Resp 24; Temp 97.8; Pulse Ox 98% on R/A; Weight 215.46 kg; ph Height 6 ft. 1 in. (185.42 cm); Pain 8/10; 10:11 BP 126 / 68; Pulse 81; Resp 24; Pulse Ox 98% on R/A; ph 11:11 BP 137 / 76; Pulse 76; Resp 20; Pulse Ox 98% on R/A; ph 11:45 Weight 220.9 kg (M); iw 12:45 BP 145 / 78; Pulse 72; Resp 18; Temp 97.9(TE); Pulse Ox 100% on R/A; mh5 11:45 Body Mass Index 64.25 (220.90 kg, 185.42 cm) iw MDM: 13:02 Patient medically screened. kdr 16:33 Data reviewed: vital signs, nurses notes, lab test result(s), EKG, radiologic studies. kdr Counseling: I had a detailed discussion with the patient and/or guardian regarding: the historical points, exam findings, and any diagnostic results supporting the discharge/admit diagnosis, lab results, radiology results, the need for outpatient follow up. 02/11 09:22 Order name: Basic Metabolic Panel; Complete Time: 10:35 kdr 02/11 09:22 Order name: CBC with Diff; Complete Time: 10:35 kdr 02/11 09:22 Order name: LFT's; Complete Time: 10:35 kdr 02/11 09:22 Order name: Magnesium; Complete Time: 10:35 kdr 02/11 09:22 Order name: NT PRO-BNP; Complete Time: 10:35 kdr 02/11 09:22 Order name: PT-INR; Complete Time: 10:35 kdr 02/11 09:22 Order name: Troponin (emerg Dept Use Only); Complete Time: 10:35 kdr 02/11 09:22 Order name: XRAY Chest (1 view); Complete Time: 10:01 kdr 02/11 09:22 Order name: Knee Left 3 View XRAY; Complete Time: 10:35 [facility] 02/11 09:22 Order name: Flu; Complete Time: 10: [facility] 02/11 11:30 Order name: CT Head Brain wo Cont; Complete Time: 13:00 [facility] 02/11 09:22 Order name: EKG; Complete Time: : [facility] 02/11 09:22 Order name: Cardiac monitoring; Complete Time: : [facility] 02/11 09:22 Order name: EKG - Nurse/Tech; Complete Time: : kdr 02/11 09:22 Order name: IV Saline Lock; Complete Time: 10:00 [facility] 02/11 09:22 Order name: Labs collected and sent; Complete Time: : [facility] 02/11 09:22 Order name: O2 Per Protocol; Complete Time: 09: kdr 02/11 09:22 Order name: O2 Sat Monitoring; Complete Time: 09: [facility] 02/11 13:07 Order name: Rudy wrap-joint; Complete Time: 13:44 sg Administered Medications: 09:58 Drug: Zofran 4 mg Route: IVP; Site: right antecubital; ph 11:10 Follow up: Response: No adverse reaction ph 10:00 Drug: morphine 4 mg Route: IVP; Site: right antecubital; ph 11:10 Follow up: Response: No adverse reaction; RASS: Alert and Calm (0) ph 12:56 Drug: [place] 10 mg-325 mg 1 tabs Route: PO; ph 13:15 Follow up: Response: No adverse reaction; RASS: Alert and Calm (0) ph Disposition: 02/11/19 13:02 Discharged to Home. Impression: Headache, Other chest pain, Chest pain, unspecified, Pain in left knee. - Condition is Stable. - Discharge Instructions: Joint Pain, Nonspecific Chest Pain, Chest Wall Pain, General Headache Without Cause, Nonspecific Chest Pain, [id number]. - Prescriptions for Tylenol- Codeine #4 300-60 mg Oral Tablet - take 1 tablet by ORAL route every 6 hours As needed; 16 tablet. - Medication Reconciliation Form, Thank You Letter form. - Follow up: Private Physician; When: 2 - 3 days; Reason: If symptoms return, Further diagnostic work-up, Recheck today's complaints, Continuance of care, Re-evaluation by your physician. - Problem is an ongoing problem. - Symptoms have improved. Signatures: Dispatcher [employer] EDAlex Saravia, RN RN sg Kevin Jack MD MD [facility] Lorena Krishna RN RN iw Alexandra Solano RN RN ph Corrections: (The following items were deleted from the chart) 13:07 13:00 Rudy wrap-joint ordered. [facility] 13:24 13:02 02/11/2019 13:02 Discharged to Home. Impression: Headache; Other chest pain; iw Chest pain, unspecified; Pain in left knee. Condition is Stable. Forms are Medication Reconciliation Form, Thank You Letter, Antibiotic Education, Prescription Opioid Use. Follow up: Private Physician; When: 2 - 3 days; Reason: If symptoms return, Further diagnostic work-up, Recheck today's complaints, Continuance of care, Re-evaluation by your physician. Problem is an ongoing problem. Symptoms have improved. kdr
[2019-02-11 13:51] VITALS: BP 145/78; TEMP 97.9; O2SAT 100
--- NOTE | 2019-02-11 14:20 | EKG ---
Test Date: 2019-02-11 Test Time: 09:18:31 Histotechnologist Supervisor: HAILEY MEASUREMENT RESULTS: Intervals: Rate: 87 TN: 144 QRSD: 90 QT: 380 QTc: 457 [place]: P: 32 TN: 144 QRS: 27 T: 31 INTERPRETIVE STATEMENTS: Normal sinus rhythm Normal ECG Compared to ECG 03/27/2014 15:53:44 Sinus bradycardia no longer present Electronically Signed On 02-11-19 14:19:14 FLUME MAKER by Leonel Jimenez
== END 2019-02-11 13:24 | disposition home or self-care (01) ==
LOC: ER 09:00
DX: R07.89 Other chest pain (principal); M25.562 Pain in left knee; I10 Essential (primary) hypertension; Z88.8 Allergy status to other drugs, medicaments and biological substances
CPT/HCPCS: 36415; 70450; 71045; 80048; 80076; 83735; 83880; 84484; 85025; 85610; 87804; 93005; 96374; 96375; 99285; J2405

== ENCOUNTER 2020-03-01 14:12 | Emergency (ER) | payer SELFPAY ==
--- OUTSIDE RECORDS SUMMARY | 2020-03-01 14:14 | XMS REPORT | Clinical Summary ---
:1980 Author Organization [facility] Address [address] [place] [address] Care Team Providers Name Role Phone Timmy Primary Care Provider Pcp Primary Care Provider Unavailable Allergies Active Allergy Reactions Severity Noted Date Comments Losartan 10/02/2016 Dizzy and SOB Medications Medication Sig Dispensed Refills Start Date End Date Status omeprazole (PRILOSEC) Take 40 mg by 0 Active 40 MG capsule mouth daily. lovastatin (MEVACOR) Take 40 mg by 0 Active 40 MG tablet mouth nightly. tamsulosin (FLOMAX) Take 1 capsule 30 capsule 0 10/05/2016 Active 0.4 mg Cp24 24 hr (0.4 mg total) capsule by mouth daily. apixaban (ELIQUIS) 5 Take 5 mg by 0 12/20/201903/19 Active mg Tab tablet mouth. potassium chloride Take 20 mEq by 0 10/23/2019 Active (KLOR-CON) 10 MEQ CR mouth. tablet traMADoL 100 mg MP25 Take 50 mg by 0 Active mouth. HYDROcodone-acetaminop Take 1 tablet 0 11/07/2019 Active hen (NORCO 10-325) by mouth every 10-325 mg per tablet 6 (six) hours as needed for pain. ondansetron Take 1 tablet 20 tablet 0 12/25/2019 Act thomas (ZOFRAN-ODT) 4 MG (4 mg total) disintegrating tablet by mouth every 8 (eight) hours as needed. amLODIPine (NORVASC) 5 Take 7.5 mg by 0 12/21/2019 1 MG tablet mouth. metoprolol tartrate Take 37.5 mg 0 12/20/20192019 (LOPRESSOR) 25 MG by mouth. tablet furosemide (LASIX) 40 Take 40 mg by 0 12/20/2019 MG tablet mouth. QUEtiapine (SEROQUEL) Take 300 mg by 0 12/20/2019 100 MG tablet mouth. vancomycin 50 mg/mL Take 125 mg by 0 12/20/2019 10/0 10/2019 SolR mouth. montelukast Take 10 mg by 0 12/20/2019 01/03/2020 Ex pired (SINGULAIR) 10 mg mouth. tablet aspirin 81 MG chewable Take 81 mg by 0 12/21/2019 tablet mouth. atorvastatin (LIPITOR) Take 80 mg by 0 12/20/2019 80 MG tablet mouth. pantoprazole Take 1 tablet 20 tablet 0 12/25/2019 01/14/2020 E xpired (PROTONIX) 20 MG (20 mg total) tablet by mouth daily for 20 days. acetaminophen-codeine Take 1 tablet 10 tablet 0 12/25/2019 (TYLENOL #3) 300-30 mg by mouth every per tablet 6 (six) hours as needed for Pain for up to 10 days. Max Daily Amount: 4 tablets Active Problems Problem Noted Date Hypertension 10/03/2016 Hyperlipidemia 10/03/2016 Morbid obesity due to excess calories 10/03/2016 Acute right flank pain 10/02/2016 Ureteropelvic junction (UPJ) obstruction 10/02/2016 Encounters Date Type Specialty Care Team Description 12/24/2019 - Emergency Emergency Medicine Stone, Rafaela Epigastri c pain (Primary Dx); 12/25/2019 MD Keya Atypical chest pain; Diarrhea, unspe cified type 12/24/2019 Orders Only General Internal Medicine 12/24/2019 Travel after 03/01/2019 Social History Tobacco Use Types Packs/Day Years Used Date Light Tobacco Smoker Comments: "stress smoker" Alcohol Use Drinks/Week oz/Week Comments Yes rare Sex Assigned at Date Recorded Not on file Last Filed Vital Signs Vital Sign Reading Time Taken Comments Blood Pressure 142/80 12/25/2019 3:07 AM CDT Pulse 78 12/25/2019 3:07 AM CDT Temperature 36.4 C (97.6 F) 12/25/2019 3:07 AM CDT Respiratory Rate 16 12/25/2019 3:07 AM CDT Oxygen Saturation 97% 12/25/2019 3:07 AM CDT Inhaled Oxygen Concentration - - Weight 233.6 kg (515 lb) 12/24/2019 11:04 PM CDT Height 183 cm (6' 0.05") 12/24/2019 11:04 PM CDT Body Mass Index 69.76 12/24/2019 11:04 PM CDT Plan of Treatment Health Maintenance Due Date Last Done Comments PNEUMOCOCCAL VACCINE 0-64 YRS (1 of 1 - PPSV23) 02/23/1986 LIPID PANEL 2000 CERVICAL CANCER SCREENING PAP ONLY (Age 21-65) 02/23/2001 INFLUENZA VACCINE (#1) 2019 Procedures Procedure Name Priority Date/Time Associated Comments Diagnosis REPORT OF PROCEDURE - 12/28/2019 8:51 ENDOSCOPY SCAN AM CDT CT ABDOMEN/PELVIS STAT 12/25/2019 2:17 Result s for this WITHOUT IV CONTRAST AM CDT procedur e are in the results section. URINALYSIS W/ STAT 12/25/2019 12:41 Results fo r this MICROSCOPIC AM CDT procedure are i n the results section. SCREEN, STAT 12/25/2019 12:41 Result s for this URINE AM CDT procedure are i n the results section. XR CHEST 1 VIEW STAT 12/24/2019 11:55 Results for this PORTABLE/BEDSIDE PM CDT procedure a re in the results section. ECG 12-LEAD Routine 12/24/2019 11:11 PM CDT Procedure Note - Interface, External Ris In - 12/25/2019 8:30 AM CDT Ventricular Rate 78 BPM Atrial Rate 78 BPM P-R Interval 138 ms QRS Duration 88 ms Q-T Interval 406 ms QTC Calculation(Bazett) 462 ms P [place] 52 degrees R [place] 26 degrees T [place] 30 degrees Normal sinus rhythm Normal ECG CBC W/PLT COUNT & AUTO STAT 12/24/2019 11:09 PM CDT Results for this DIFFERENTIAL procedure are i n the results section . CREATINE KINASE (CK) STAT 12/24/2019 11:09 PM CDT Results for this procedure are i n the results section . TROPONIN I STAT 12/24/2019 11:09 PM CDT Resu lts for this procedure are i n the results section . LIPASE STAT 12/24/2019 11:09 PM CDT Resu lts for this procedure are i n the results section . HEPATIC FUNCTION PANEL STAT 12/24/2019 11:09 PM CDT Results for this procedure are i n the results section . BASIC METABOLIC PANEL (7) STAT 12/24/2019 11:09 PM CDT Results for this procedure are i n the results section . CBC W/PLT COUNT & AUTO STAT 12/24/2019 11:09 PM CDT Results for this DIFFERENTIAL procedure are i n the results section . ED ECG INTERPRETATION Routine 12/24/2019 11:05 PM CDT Results for this procedure are i n the results section . after 03/01/2019 Results EKG-SCANNED (12/28/2019 8:51 AM CDT) Narrative Performed At This result has an attachment that is no t available. CT abdomen pelvis without contrast (12/25/2019 2:17 AM CDT) Specimen Narrative Performed At FINAL REPORT [facility] TECHNIQUE: CT of the abdomen and pelvis WITHOUT intravenous contrast and WITH oral contrast. Dose modulation, iterative reconstruction, and/or weight-based adjustment of the mA /kV was utilized to reduce the radiation dose to as low as reasonab ly achievable. INDICATION: Abdominal pain, acute, nonlo calized ABDOMINAL PAIN DIARRHEA CHEST PAIN. COMPARISON: 10/02/2016. FINDINGS: ABSENCE OF INTRAVENOUS CONTRAST DECREASE S SENSITIVITY FOR DETECTION OF FOCAL LESIONS AND VASCULAR PATHOLOGY. LOWER THORAX: Unremarkable. HEPATOBILIARY: No focal hepatic lesions. Gallbladder is unremarkable. No biliary ductal dilatation. SPLEEN: No splenomegaly. PANCREAS: No focal masses or ductal dila tation. ADRENALS: No adrenal nodules. KIDNEYS/URETERS: No hydronephrosis, ston es, or exophytic masses. PELVIC ORGANS/BLADDER: Bladder is collap sed. Uterus is unremarkable. No adnexal mass. PERITONEUM/RETROPERITONEUM: No free air or fluid. LYMPH NODES: No lymphadenopathy. VESSELS: Unremarkable. GI TRACT: Gastric band is in place witho ut evidence of slippage. There are foci of gas along the gastric wall subjacent to the gastric band. No bowel wall thickening or disten tion. Normal appendix. BONES AND SOFT TISSUES: No acute osseous abnormality or significant soft tissue finding. IMPRESSION: 1. No obstructive uropathy or nephrolith iasis. 2. Foci of air interpositioned between t he margins of the gastric lap band and gastric wall questionable for m ucosal erosion. If clinically warranted, consider further evaluation w ith endoscopy on an urgent but nonemergent basis. Signed: Ciara Monsivais MD Report Verified Date/Time: 12/25/2019 02:38:32 Procedure Note Interface, External Ris In - 12/25/2019 2:40 AM CDT FINAL REPORT TECHNIQUE: CT of the abdomen and pelvis WITHOUT intravenous contrast and WITH oral contrast. Dose modulation, iterative reconstruction, and/or weight-based adjustment of the mA /kV was utilized to reduce the radiation dose to as low as reasonab ly achievable. INDICATION: Abdominal pain, acute, nonlo calized ABDOMINAL PAIN DIARRHEA CHEST PAIN. COMPARISON: 10/02/2016. FINDINGS: ABSENCE OF INTRAVENOUS CONTRAST DECREASE S SENSITIVITY FOR DETECTION OF FOCAL LESIONS AND VASCULAR PATHOLOGY. LOWER THORAX: Unremarkable. HEPATOBILIARY: No focal hepatic lesions. Gallbladder is unremarkable. No biliary ductal dilatation. SPLEEN: No splenomegaly. PANCREAS: No focal masses or ductal dila tation. ADRENALS: No adrenal nodules. KIDNEYS/URETERS: No hydronephrosis, ston es, or exophytic masses. PELVIC ORGANS/BLADDER: Bladder is collap sed. Uterus is unremarkable. No adnexal mass. PERITONEUM/RETROPERITONEUM: No free air or fluid. LYMPH NODES: No lymphadenopathy. VESSELS: Unremarkable. GI TRACT: Gastric band is in place witho ut evidence of slippage. There are foci of gas along the gastric wall subjacent to the gastric band. No bowel wall thickening or disten tion. Normal appendix. BONES AND SOFT TISSUES: No acute osseous abnormality or significant soft tissue finding. IMPRESSION: 1. No obstructive uropathy or nephrolith iasis. 2. Foci of air interpositioned between t he margins of the gastric lap band and gastric wall questionable for m ucosal erosion. If clinically warranted, consider further evaluation w ith endoscopy on an urgent but nonemergent basis. Signed: Ciara Monsivais MD Report Verified Date/Time: 12/25/2019 0 2:38:32 Performing Organization Address City/State/Zipcode Phone Number GE RIS screen, urine (12/25/2019 12:41 AM CDT) Pathologist Sig nature Preg Test, Ur Negative [facility] Specimen Urine Performing Organization Address City/State/Zipcode Phone Number [facility] [address], [place] [address] Urinalysis w/Microscopic (12/25/2019 12:41 AM CDT) Color, UA Yellow [facility] Clarity, UA Clear [facility] Specific [place], >=1.030 1.001 - 1.035 [facility] pH, UA 6.0 5.0 - 8.0 [facility] Protein, UA 100 mg/dL (A) Negative [facility] Glucose, UA Negative Negative [facility] Ketones, UA Negative Negative [facility] Bilirubin, UA Negative Negative [facility] Blood, UA Moderate (A) Negative [facility] Nitrite, UA Negative Negative [facility] Leukocytes, UA Negative Negative [facility] Urobilinogen, UA 0.2 0.2 - 1.0 mg/dL [facility] Bacteria, UA Few [facility] Ca Oxalate Liat, Moderate [facility] RBC, UA 20-50 /HPF [facility] WBC, UA <5 /HPF [facility] SQUAMOUS 50-100 /HPF [facility] Specimen Source [facility] Specimen Urine Performing Organization Address City/State/Zipcode Phone Number [facility] [address], [place] [address] XR chest 1 view portable / bedside (12/24/2019 11:55 PM CDT) Specimen Narrative Performed At FINAL REPORT [facility] Chest, 1 view. History: Chest pain and diarrhea. Comparison: None available. Impression: Examination limited by low lung volumes, overlying soft tissue and underpenetration. Cardiomediastinal silh ouette is enlarged, possibly exaggerated by technique. Prominence of the central pulmonary vasculature is concerning for pulmonary vascular congestion. Hazy airspace opacities likely related to emily hnique however difficult to exclude superimposed atypical infection. No lobar consolidation or large pleural effusion. The costophrenic angles are not included on this study. No pneumothorax. Osseous str uctures are grossly unremarkable. Signed: Keya Jaimes MD Report Verified Date/Time: 12/25/2019 00:14:07 Procedure Note Interface, External Ris In - 12/25/2019 12:16 AM CDT FINAL REPORT Chest, 1 view. History: Chest pain and diarrhea. Comparison: None available. Impression: Examination limited by low lung volumes, overlying soft tissue and underpenetration. Cardiomediastinal silh ouette is enlarged, possibly exaggerated by technique. Prominence of the central pulmonary vasculature is concerning for pulmonary vascular congestion. Hazy airspace opacities likely related to emily hnique however difficult to exclude superimposed atypical infection. No lobar consolidation or large pleural effusion. The costophrenic angles are not included on this study. No pneumothorax. Osseous str uctures are grossly unremarkable. Signed: Keya Jaimes MD Report Verified Date/Time: 12/25/2019 0 0:14:07 Performing Organization Address City/State/Zipcode Phone Number [facility] CBC with platelet count + automated diff (12/24/2019 11:09 PM CDT) Pathologist Sig nature WBC 5.4 4.0 - 10.0 [facility] RBC 4.06 4.00 - 5.00 [facility] Hemoglobin 11.5 (L) 12.0 - 15.5 [facility] Hematocrit 36.1 36.0 - 46.0 % [facility] MCV 88.9 82.0 - 99.0 fL [facility] MCH 28.3 27.0 - 33.0 pg [facility] MCHC 31.9 (L) 32.0 - 36.0 [facility] RDW 14.1 12.0 - 15.0 % [facility] Platelets 221 150 - 430 K/CU [facility] MPV 9.5 6.0 - 11.5 fL [facility] nRBC 0 0 - 0 /100 WBC [facility] % Neutros 58 % [facility] % Lymphs 31 % [facility] % Monos 6 % [facility] % Eos 4 % [facility] % Baso 1 % [facility] # Neutros 3.13 1.80 - 8.00 [facility] # Lymphs 1.67 1.48 - 4.50 [facility] # Monos 0.34 0.00 - 1.30 [facility] # Eos 0.20 0.00 - 0.50 [facility] # Baso 0.03 0.00 - 0.20 [facility] Immature 0 0 - 0 % [facility] e Specimen Blood Performing Organization Address [facility] Phone Number [facility] [address], [place] [address] Troponin I (not available at [facility]) (12/24/2019 11:09 PM CDT) Pathologist Sig nature Troponin I <0.03 0.00 - 0.15 ng/mL [facility] Specimen Blood Narrative Performed At Troponin I (TnI) levels must be interpreted in the con text of [facility] the presenting symptoms and the clinical findings. Norma vated TnI levels indicate myocardial damage, but are not specifi c for ischemic heart disease. Elevated TnI levels are seen i n patients with other cardiac conditions (including myoc arditis and congestive heart failure), and slight TnI elevatio ns occur in patients with other conditions, including sepsis, r enal failure, acidosis, acute neurological disease, and per sistent tachyarrhythmia. Glaze Carrier ID - ADMIN Performing Organization Address City/[facility]/Zipcode Phone Number [facility] [address], [place] [address] Lipase (12/24/2019 11:09 PM CDT) Pathologist Sig [facility] Lipase 30 6 - 51 U/L [facility] Specimen Blood Narrative Performed At Glaze Carrier ID - ADMIN [facility] Performing Organization Address City/[facility] Centercowv Phone Number [facility], [place] [address] Creatine Kinase (CK) (12/24/2019 11:09 PM CDT) Pathologist Sig nature Total CK 38 25 - 235 U/L [facility] Specimen Blood Narrative Performed At Glaze Carrier ID - ADMIN [facility] Performing Organization Address [facility] Phone Number [facility] [place], [place] [address] Liver Panel (12/24/2019 11:09 PM CDT) Pathologist Sig [facility] Protein, Total 6.8 6.0 - 8.5 gm/dL [facility] Albumin 3.5 3.5 - 5.0 g/dL [facility] Total Bilirubin <0.2 0.1 - 1.2 mg/dL [facility] Bilirubin, Direct 0.1 0.0 - 0.4 mg/dL [facility] Alkaline Phosphatase 108 30 - 115 U/L [facility] AST 17 5 - 40 U/L [facility] ALT 20 5 - 50 U/L [facility] Specimen Blood Narrative Performed At Glaze Carrier ID - ADMIN [facility] Performing Organization Address [facility] Centercode Phone Number [facility] [address], [place] [address] Basic metabolic panel (Na, K+, Cl, CO2, Glu, Ca, BUN, Cr) (12/24/2019 11:09 PM CDT) Sodium 141 135 - 148 meq/L [facility] Potassium 3.9 3.6 - 5.5 meq/L [facility] Chloride 106 98 - 106 meq/L [facility] CO2 26 20 - 29 meq/L [facility] BUN 8 (L) 10 - 26 mg/dL [facility] Creatinine 0.75 0.50 - 1.20 [facility] Glucose 127 (H) 70 - 110 mg/dL [facility] Calcium 8.8 8.5 - 10.5 [facility] mg/dL [facility]ATORY EGFR 86Comment: ESTIMATED mL/min/1.73 sq [facility] GFR IS NOT m LABORATORY ACCURATE CREATININE CLEARANCE IN PREDICTING GLOMERULAR FILTRATION RATE. ESTIMATED GFR IS NOT APPLICABLE FOR DIALYSIS PATIENTS. Specimen Blood Narrative Performed At Glaze Carrier ID - ADMIN [facility] Performing Organization Address [facility]/Zipcode Phone Number [facility] [address], [place] [address] ECG/EKG Interpretation (12/24/2019 11:05 PM CDT) Narrative Performed At Rafaela Humphries MD 0 3:03 AM ECG/EKG Interpretation Date/Time: 12/24/2019 11:14 PM Performed by: Rafaela Humphries MD Authorized by: Rafaela Humphries MD The ECG was interpreted by ED physician. This ECG was not compared with previous ECG(s).The ECG is interpreted a s sinus rhythm. Rate is normal rate. Heart rate is [address] segments normal. T waves normal. Clin ical Impression: normal ECGECG reviewed and does not meet STEMI criteria. after 03/01/2019 Insurance Payer Benefit Plan / Subscriber ID Effective Dates Phone Addre ss Type Group PENDING [facility] EM[facility]GENCY [id number] 2016-Present ADMIT Advance Directives For more information, please contact: [phone] Code Status Date Activated Date Inactivated Comments Full Code 10/02/2016 10:28 PM 10/05/2016 4:02 PM This code status was determined by: Patient
--- OUTSIDE RECORDS SUMMARY | 2020-03-01 14:16 | XMS REPORT | Continuity of Care Document ---
:1980 Author Organization [facility] Care Team Providers Name Role Phone [facility] Unavailable Un available Problems Problem Status Onset Classification Date Comments Sourc e Date Reported HEADACHE AND Active 08/23/19 [facility] CHEST PAIN 19 [place] Chest pain, 08/19/19 08/20/2018 [facility] unspecified [place] Pneumonia, 08/19/19 08/20/2018 MH unspecified 19 [place] organism Diarrhea, 08/19/19 08/20/2018 MH unspecified 19 [place] CHEST PAIN Active 08/18/19 MH 19 [place] Esophagitis, 08/13/19 08/14/2018 MH unspecified 19 [place] Nontoxic single 08/13/19 08/14/2018 thyroid nodule 19 [place] CP Active 08/13/19 MH 19 [place] FEVER SORE THROAT Active 07/30/19 MH The 19 [place] ACUTE Active 07/30/19 MH The TONSILLITIS, 19 [place] ACUTE CHEST PAIN 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) Hyperlipidemia Active Problem 08/27/2018 [facility] (disorder) [place] 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 45) 2018 [facility] Injectable Solution [DHE-45] ketOROLAC 30 mg/mL 4 days Inactive injectable MEDICATION 2018 [facility] solution WASTE Product Size: 30 mg Product Wasted: ___ mg Prednisone Notes: Take Inactive with food. 2019 [facility] Topamax Notes: (Same No Longer As: Topamax) Active 2018 [facility] "Do Not Crush" Imitrex 6 mg, Route: Inactive SUB-Q, ONCE, 2019 [facility] Dosing Weight 187.273, kg, Start date: 08/24/18 16:45:00 CDT, Stop date: 08/24/18 16:45:00 CDT topiramate 25 mg 25 mg = 1 cap, Active oral capsule PO, Q12H, X 30 2019 [place] day, # 60 cap, 0 Refill(s), Pharmacy: [facility] Imitrex Notes: For Inactive SUBCUTANEOUS 2018 [facility] use only Prednisone Notes: Take Inactive with food. 2019 [facility] Ketorolac 10 mg = 1 tab, No Longer Tromethamine 10 MG PO, Q6H, X [address] [facility] Oral Tablet day, # 12 tab, 0 Refill(s), Pharmacy: [facility] Morphine Notes: (Same Inactive as:MORPhine 2018 [facility] Sulfate) Hydrochlorothiazid 1 tab, Route: No Longer 08/24 e 25 MG / PO, Drug Form: Active 2018 [facility] Lisinopril 20 MG TAB, Dosing Oral Tablet Weight 187.273, kg, Daily, Start date: 08/24/18 9:00:00 CDT, Duration: 30 day, Stop date: 09/22/18 9:00:00 CDT atorvastatin Notes: (Same No Longer as: Lipitor) Active 2018 [facility] Famotidine 20 MG Notes: (Same No Longer Oral Tablet as: Pepcid) Active 2018 [facility] [Pepcid] metoprolol Notes: (Same No Longer tartrate as: Lopressor) Active 2018 [facility] Morphine 4 mg, 2 mL, No Longer Route: IVP, Active 2018 [facility] Drug form: SOLN, Q4H, Dosing Weight 187.273, kg, PRN Pain Score 7-10, Start date: 08/23/18 16:27:00 CDT, Duration: 30 day, Stop date: 09/22/18 16:26:00 CDT Compazine Notes: (Same Inactive as: Compazine) 2018 [facility] ketOROLAC 30 mg/mL 4 days Inactive injectable MEDICATION 2018 [facility] solution WASTE Product Size: 30 mg Product Wasted: ___ mg Benadryl Notes: (Same No Longer as: Benadryl) Active 2018 [facility] tramadol Notes: Not to No Longer hydrochloride 50 exceed Active [address] [facility] Oral Tablet 400mg/day. (Same As: Ultram) Sucralfate Notes: May No Longer interfere Active 2018 [facility] w/enteral feeds - Take 1 hr before or 2 hr after antacids, dairy pdt, meals & minerals - On empty stomach. For patients unable to swallow tablet, dissolve in 10mL - 30mL of water or juice and stir before giving. (Same As: Carafate) Isosorbide Notes: (Same No Longer as:Imdur) "Do Active 2018 [facility] Not Crush" Take on empty stomach/ full glass of water. Do not crush pantoprazole Notes: Tablet No Longer should not be Active 2018 [facility] chewed or crushed. (Same as: Protonix) lisinopril Notes: (Same No Longer as: Prinivil, Active 2018 [facility] Zestril) Escitalopram Notes: (Same No Longer as: Lexapro) Active 2018 [facility] hydrochlorothiazid Notes: (Same No Longer e 25 mg oral as: Active 2019 [facility] tablet Hydrodiuril) With food. Tums Notes: (Same No Longer As: Tums) Active 2018 [facility] Calcium Carbonate 500 mg = 200 mg elemental calcium Dose = mg calcium carbonate ( mg elemental calcium) Morphine Notes: (Same Inactive as:MORPhine 2018 [facility] Sulfate) Saline Flush 0.9% Notes: (Same No Longer as: BD Active 2018 [facility] Posiflush) ketOROLAC 30 mg/mL 4 days Inactive injectable MEDICATION 2018 [facility] solution WASTE Product Size: 30 mg Product Wasted: ___ mg Sumatriptan Notes: For Inactive SUBCUTANEOUS 2019 [facility] use only Aspirin 81 MG Notes: Do not No Longer Enteric Coated crush or chew. Active 2019 [place] Tablet (Same As: Ecotrin) Saline Flush 0.9% Notes: (Same No Longer as: BD Active 2018 [facility] Posiflush) Sodium Chloride 1,000 mL, No Longer 0.9% IV 1,000 mL Rate: 100 Active 2018 [place] ml/hr, Infuse over: 10 hr, Route: IV, Dosing Weight 190.909 kg, Total Volume: 1,000, Start date: 08/22/18 22:59:00 CDT, Duration: 30 day, Stop date: 09/21/18 22:58:00 CDT, 3.16, m2 Acetaminophen Notes: Do not No Longer exceed 4 Active 2018 [place] gm/day. (Same as: Tylenol) Aspirin Notes: Take Inactive with food. 2019 [place] Morphine 6 mg, Route: Inactive IVP, Drug 2019 [facility] form: SOLN, ONCE, Dosing Weight 190.909, kg, Priority: STAT, Start date: 08/22/18 20:44:00 CDT, Stop date: 08/22/18 20:44:00 CDT Xylocaine Viscous Notes: (Same Inactive 2% mucous membrane as: Xylocaine) 2019 [facility] solution Al hydroxide/Mg Notes: Inactive hydroxide/simethic (aluminum 2019 [place] one hydroxide-magn esium hyd-simethicon e [phone]/5 ml 30 ml ud ZENIA) GI cocktail 30 mL, Route: Inactive (aluminum PO, Dosing 2019 [place] hydroxide/magnesiu Weight m 190.909, kg, hydroxide/lidocain ONCE, STAT, e/simethicone) Start date: 08/22/18 18:21:00 CDT, Stop date: 08/22/18 18:21:00 CDT Reglan Notes: (Same Inactive as: Reglan) 2019 [facility] NS (Bolus) IV 1,000 mL, Inactive 1,000 ml/hr, 2019 [facility] Infuse Over: 1 hr, Route: IV, 1,000, Drug form: INJ, ONCE, Priority: STAT, Dosing Weight 190.909 kg, Start date: 08/22/18 16:06:00 CDT, Stop date: 08/22/18 16:06:00 CDT ketOROLAC 30 mg/mL 4 days Inactive injectable MEDICATION 2019 [facility] solution WASTE Product Size: 30 mg Product Wasted: ___ mg Benadryl Notes: (Same Inactive as: Benadryl) 2019 [facility] Acetaminophen Notes: Max Inactive acetaminophen 2019 [facility] 4000 mg/day (4 gm/day). (Same as: Tylenol Extra Strength) Saline Flush 0.9% Notes: (Same No Longer as: BD Active 2018 [facility] Posiflush) ketOROLAC 15 mg/mL 15 mg, Route: Inactive injectable IVP, Drug 2018 [facility] solution form: INJ, ONCE, Dosing Weight 188.636, kg, Priority: STAT, Start date: 08/18/18 3:48:00 CDT, Stop date: 08/18/18 3:48:00 CDT {74 (apixaban 5 MG See Active Oral Tablet Instructions, 2019 [facility] [Eliquis]) } Pack 2 tablets BID [Eliquis 30-Day x 7 days then Starter Pack] 1 tablet BID thereafter, # 50 tab, 0 Refill(s) Ondansetron 4 MG 4 mg = 1 tab, Active H Disintegrating PO, TID, PRN 2019 [place] Tablet [Zofran] Nausea and Vomiting, Dissolve tab under tongue, # 15 tab, 0 Refill(s) {6 (Azithromycin See Active 250 MG Oral Tablet Instructions, 2018 [facility] [Zithromax]) } Take 2 tablets Pack [Z-PAKS] by mouth the first day then 1 tablet by mouth days 2-5., X 5 day, # 6 tab, 0 Refill(s) Omnipaque 300 45 mL/min, Inactive injectable STAT, Start 2018 [facility] solution date: 08/18/18 2:12:00 CDT, Duration: 1 doses or times sucralfate 1 g 1 gm = 1 tab, Active oral tablet PO, QID, # 28 [place] tab, 0 Refill(s) Famotidine 20 MG 20 mg = 1 tab, Active Oral Tablet PO, BID, # 10 2019 [place] [Pepcid] tab, 0 Refill(s) Al hydroxide/Mg Notes: Inactive hydroxide/simethic (aluminum 2019 [place] one hydroxide-magn esium hyd-simethicon e [phone]/5 ml 30 ml ud ZENIA) Xylocaine Viscous Notes: (Same Inactive 2% mucous membrane as: Xylocaine) 2019 [facility] solution GI cocktail 30 mL, Route: Inactive (aluminum PO, Dosing 2019 [place] hydroxide/magnesiu Weight m 190.909, kg, hydroxide/lidocain ONCE, STAT, e/simethicone) Start date: 08/12/18 4:30:00 CDT, Stop date: 08/12/18 4:30:00 CDT Omnipaque 300 45 mL/min, Inactive injectable STAT, Start 2018 [place] solution date: 08/12/18 4:14:00 CDT, Stop date: 08/12/18 4:14:00 CDT Acetaminophen 325 Notes: Do not Inactive MG / Hydrocodone exceed 4gm/day 2018 [facility] Bitartrate 10 MG of Oral Tablet [Urania acetaminophen. 10/325] (Same as: Urania 325/10) Ondansetron Notes: (Same Inactive as: Zofran) 2018 [facility] MEDICATION WASTE Product Size: 4 mg Product Wasted: ___ mg Morphine Notes: (Same Inactive as: MORPhine 2018 [facility] Sulfate) Saline Flush 0.9% Notes: (Same Inactive as: BD 2019 [facility] Posiflush) Isosorbide Notes: (Same No Longer The as:Imdur) "Do Active 2018 [place] Not Crush" Take on empty stomach/ full glass of water. Do not crush Hydrochlorothiazid 1 tab, Route: No Longer 07/31 The e 25 MG / PO, Drug Form: Active 2018 [facility] ds Lisinopril 20 MG TAB, Dosing Oral Tablet Weight 200.142, kg, Daily, Start date: 07/31/18 9:00:00 CDT, Duration: 30 day, Stop date: 08/29/18 9:00:00 CDT lisinopril Notes: (Same No Longer The as: Prinivil, Active 2018 [place] Zestril) Escitalopram Notes: (Same No Longer T he as: Lexapro) Active 2018 [place] hydrochlorothiazid Notes: (Same No Longer The e 25 mg oral as: Active 2018 [place] tablet Hydrodiuril) With food. metoprolol Notes: (Same Inactive The tartrate as: Lopressor) 2018 [place] Carafate Notes: May Inactive The interfere 2018 [place] w/enteral feeds - Take 1 hr before or 2 hr after antacids, dairy pdt, meals & minerals - On empty stomach. For patients unable to swallow tablet, dissolve in 10mL - 30mL of water or juice and stir before giving. (Same As: Carafate) tramadol Notes: Not to Inactive The hydrochloride 50 exceed 2018 [place] [facility] MG Oral Tablet 400mg/day. (Same As: Ultram) Xarelto Notes: (Same Inactive The as: Xarelto) 2018 [place] Administer with food Protonix Notes: Tablet Inactive The should not be 2018 [place] chewed or crushed. (Same as: Protonix) Amoxicillin 875 MG 1 tab, PO, Active The / Clavulanate 125 Q12H, X 7 day, 2018 [place] MG Oral Tablet # 14 tab, 0 [Augmentin 875-mg] Refill(s), Pharmacy: [facility] SUMAtriptan 50 mg 50 mg = 1 tab, Active The oral tablet PO, ONCE, PRN 2018 [facility] nds Headache, # 9 tab, 0 Refill(s), Pharmacy: [facility] hydrOXYzine Notes: (Same Inactive The hydrochloride as: Atarax) 2018 [facility] nds Avoid alcohol. ketOROLAC 15 mg/mL 4 days Inactive The injectable MEDICATION 2018 [place] solution WASTE Product Size: 30 mg Product Wasted: ___ mg Sumatriptan Notes: (Same Inactive The as: Imirtex) 2018 [place] Acetaminophen 325 Notes: Inactive Th e MG / butalbital 50 (acetaminophen 2018 [place] MG / Caffeine 40 -butalbital-ca MG Oral Tablet ffeine 325-50-40mg) Do not exceed 4 gm/day of acetaminophen. (Same as: Esgic, Fioricet) Amoxicillin 875 MG Notes: With Inactive The / Clavulanate 125 food. (Same 2018 [place] Oral Tablet as: Augmentin [Augmentin 875-mg] 875) heparin Notes: porcine Inactive The heparin 2018 [place] Acetaminophen 325 Notes: (Same Inactive The MG / Hydrocodone as: Urania 2019 [facility] Bitartrate 5 MG 325/5) Do not Oral Tablet [Urania exceed 4gm/day 5/325] of acetaminophen. hydrOXYzine 50 mg, PO, Active The hydrochloride ONCE, 0 2018 [place] Refill(s) atorvastatin 40 mg 40 mg = 1 tab, Active The oral tablet PO, Daily, 0 2018 [facility] ds Refill(s) Hydrochlorothiazid 1 tab, PO, Active The e 25 MG / Daily, # 90 2018 [place] Lisinopril 20 MG tab, 1 Oral Tablet Refill(s) isosorbide 30 mg = 1 tab, Active The mononitrate 30 mg PO, QAM, 0 2018 [facility] oral tablet, Refill(s) extended release rivaroxaban 20 MG 20 mg = 1 tab, Active The Oral Tablet PO, QPM, 0 2018 [place] [Xarelto] Refill(s) escitalopram 20 mg 20 mg = 1 tab, Active The oral tablet PO, Daily, 0 2018 [facility] ds Refill(s) pantoprazole 40 mg, PO, Active The Daily, 0 2018 [place] Refill(s) tramadol 50 mg = 1 tab, Active The hydrochloride 50 PO, TID, 0 2018 [place] [facility] Oral Tablet Refill(s) metoprolol 25 mg = 1 tab, Active The tartrate 25 mg PO, BID, 0 2018 [place] oral tablet Refill(s) NS 1,000 mL 1,000 mL, No Longer The Rate: 100 Active 2018 [place] ml/hr, Infuse over: 10 hr, Route: IV, Dosing Weight 187.682 kg, Total Volume: 1,000, Start date: 07/29/18 23:33:00 CDT, Duration: 30 day, Stop date: 08/28/18 23:32:00 CDT, 3.14, m2 Nitroglycerin Notes: (Same No Longer The as:Nitroquick, Active 2018 [place] Nitrostat) "Do Not Crush" Sublingual tablet Morphine Notes: (Same No Longer The as:MORPhine Active 2018 [place] Sulfate) Ondansetron Notes: (Same No Longer Th e as: Zofran) Active 2018 [place] MEDICATION WASTE Product Size: 4 mg Product Wasted: ___ mg Glucagon 1 mg, Route: No Longer The IM, Drug form: Active 2018 [place] PDR/INJ, PRN, Dosing Weight 187.682, kg, PRN Blood Glucose Results, Start date: 07/29/18 23:31:00 CDT, Duration: 30 day, Stop date: 08/28/18 23:30:00 CDT Dextrose 50% 25 gm, 50 mL, No Longer The Syringe Route: IVP, Active 2018 [place] Drug Form: INJ, Dosing Weight 187.682, kg, PRN, PRN Blood Glucose Results, Start date: 07/29/18 23:31:00 CDT, Duration: 30 day, Stop date: 08/28/18 23:30:00 CDT Dilaudid Notes: Same as No Longer The Dilaudid Active 2018 [place] Hydromorphone 0.5 mg, Route: Inactive The IVP, ONCE, 2018 [place] Dosing Weight 187.682, kg, Priority: STAT, Start date: 07/29/18 22:08:00 CDT, Stop date: 07/29/18 22:08:00 CDT Nitroglycerin 0.4 Notes: (Same Inactive The MG Sublingual as:Crow, 2018 [facility] Tablet Nitrostat) "Do Not Crush" Sublingual tablet Amoxicillin 875 MG 1 tab, Route: Inactive The / Clavulanate 125 PO, Drug Form: 2018 [place] MG Oral Tablet TAB, Dosing Weight 187.682, kg, ONCE, STAT, Start date: 07/29/18 21:38:00 CDT, Stop date: 07/29/18 21:38:00 CDT Amoxicillin 875 MG Notes: With Inactive The / Clavulanate 125 food. (Same 2018 [place] Oral Tablet as: Augmentin [Augmentin 875-mg] 875) Aspirin 81 MG Notes: Take Inactive Th e Chewable Tablet with food. 2019 [facility] Ondansetron Notes: (Same Inactive The as: Zofran) 2018 [place] MEDICATION WASTE Product Size: 4 mg Product Wasted: ___ mg Morphine Notes: (Same Inactive The as:MORPhine 2018 [place] Sulfate) Saline Flush 0.9% Notes: (Same No Longer The as: BD Active 2018 [place] Posiflush) Allergies, Adverse Reactions, Alerts No Known Medication Allergies Immunizations No Data Provided for This Section Results Order Name Results Value Reference Date Interpretation Comments Teagan rce Range CARDIAC Troponin-I <0.02 0.00 - 06 ENZYMES 0.40 /2018 [facility] ENDOCRINOL Prolactin 33.0 08/24 OGY Lvl /2018 [facility] IMMUNOLOGY IGF I 140 69 - 227 08/24 Result Comment: [facility] Performed At: [facility]
[address] [place], [place] [id number]<br/ >Avery Peterson MD Ph:[phone] ENDOCRINOL FSH 5.3 08/[address] [facility] ENDOCRINOL LH 1.93 08/[address] [facility] SPECIAL ACTH Lvl 41 0 - 46 08/23 CHEMISTRY /2018 [facility] CHEM PANEL eGFR 104 08/23 Result Comment: The [facility] eGFR is calculated using the CKD-EPI formula. In most young, healthy individuals the eGFR will be >90 mL/min/1.73m2 . The eGFR declines with age. An eGFR of 60-89 may be normal in some populations, particularly the elderly, for whom the CKD-EPI formula has not been extensively validated. Use of the eGFR is not recommended in the following populations:< br/>
Beba viduals with unstable creatinine concentration s, including patients and those with serious co-morbid conditions.<b r/>
Patie nts with extremes in muscle mass or diet.

The data above are obtained from the National Kidney Disease Education Program (NKDEP) which additionally recommends that when the eGFR is used in patients with extremes of body mass index for purposes of drug dosing, the eGFR should be multiplied by the estimated BMI. CHEM PANEL Calcium Lvl 8.7 8.5 - 10.5 08/23 [facility] CHEM PANEL Sodium Lvl 137 135 - 145 08/23 [facility] CHEM PANEL Chloride Lvl 104 95 - 109 08/23 [facility] CHEM PANEL Potassium 4.1 3.5 - 5.1 08/[address] [facility] CHEM PANEL AGAP 11.1 10.0 - 08/[address] [facility] CHEM PANEL CO2 26 24 - 32 08/23 [facility] CHEM PANEL BUN 15 7 - 22 08/23 [facility] CHEM PANEL Creatinine 0.73 0.50 - 08/23 Lvl 1.40 /2018 [facility] CHEM PANEL Glucose Lvl 86 70 - 99 08/23 [facility] ENDOCRINOL Prolactin 31.4 / OGY Lvl /2018 [facility] HEMATOLOGY MPV 7.3 7.4 - 10.4 08/23 [facility] HEMATOLOGY MCV 69.5 80.0 - 08/[address] [facility] HEMATOLOGY Hct 27.8 36.0 - 08/23 MH 48.0 /2018 [facility] HEMATOLOGY MCHC 31.5 32.0 - / MH 36.0 [facility] HEMATOLOGY MCH 21.9 27.0 - / MH 31.0 [facility] HEMATOLOGY Platelet 267 133 - 450 08/23 [facility] HEMATOLOGY RDW 18.2 11.5 - 08/23 14.5 /2018 [facility] HEMATOLOGY WBC 5.3 3.7 - 10.4 06/ MH /2018 [facility] HEMATOLOGY RBC 4.00 4.20 - 06/ MH 5.40 /2018 [facility] HEMATOLOGY Hgb 8.8 12.0 - 06/ 16.0 /2018 [facility] HEMATOLOGY Segs 51.8 45.0 - 06/ MH 75.0 /2018 [facility] HEMATOLOGY Monocytes 7.1 2.0 - 12.0 06/ /2018 [facility] HEMATOLOGY Lymphocytes 37.6 20.0 - 06/ MH 40.0 /2018 [facility] HEMATOLOGY Eosinophils 3.0 0.0 - 4.0 06/ MH /2018 [facility] HEMATOLOGY Plt Morph Normal Normal 08/23 (08/23/18 5:34 AM) /2018 [facility] HEMATOLOGY Neutrophils 2.8 1.5 - 8.1 08/23 # /2018 [facility] HEMATOLOGY Monocytes # 0.4 0.0 - 0.8 08/23 /2018 [facility] HEMATOLOGY Lymphocytes 2.0 1.0 - 5.5 08/23 # /2018 [facility] HEMATOLOGY Eosinophils 0.2 0.0 - 0.5 08/23 MH # /2018 [facility] HEMATOLOGY Basophils 0.5 0.0 - 1.0 08/23 /2018 [facility] HEMATOLOGY Hypochrom 1+ None Seen 08/23 (08/23/18 5:34 AM) /2018 [facility] HEMATOLOGY Microcyte 2+ None Seen 08/23 *ABN* /2018 [facility] (08/23/18 5:34 AM) LIPIDS VLDL 28 08/23 /2018 [facility] LIPIDS LDL 130 <=99 mg/dL 08/23 (Calculated) [facility] LIPIDS Chol 196 <=199 08/23 mg/dL [facility] LIPIDS Trig 141 <=149 08/23 mg/dL [facility] LIPIDS HDL 38 >=61 mg/dL 08/23 [facility] LIPIDS CHD Risk 5.16 3.90 - 06 5.80 /2018 [facility] SPECIAL Hgb A1C 6.2 <=5.6 % 08/23 CHEMISTRY /2018 [facility] URINE AND UA Bacteria Few /HPF None Seen 08/23 STOOL /HPF /2018 [facility] URINE AND UA Sq Epi Many /LPF Few /LPF 08/23 STOOL /2018 [facility] URINE AND UA WBC 2 0 - 5 08/23 STOOL /2018 [facility] URINE AND UA RBC 1 0 - 2 08/23 STOOL /2018 [facility] URINE AND UA Hyal Cast 3 0 - 2 08/23 STOOL /2018 [place] URINE AND UA Mucus Few /LPF None Seen 08/23 STOOL /LPF /2018 [place] URINE AND UA Amorph Occasional None Seen 08/23 STOOL Liat /HPF /HPF /2018 [place] URINE AND UA Color Yellow Yellow 08/23 STOOL *NA* /2018 [facility] (08/23/18 5:00 AM) URINE AND UA Turbidity Slight Clear 08/23 STOOL *ABN* [facility] (08/23/18 5:00 AM) URINE AND UA Nitrite Negative Negative 08/23 [facility] (08/23/18 5:00 AM) /[address] URINE AND UA Leuk Est Trace Negative 08/23 STOOL *ABN* [facility] (08/23/18 5:00 AM) URINE AND UA Spec Grav 1.016 <=1.030 08/[address] [facility] URINE AND UA pH 5.0 5.0 - 8.0 08/23 [facility] [place] URINE AND UA Protein Negative Negative 08/23 [facility] (08/23/18 5:00 AM) /[address] URINE AND UA Ketones Negative Negative 08/23 STOOL *NA* [facility] (08/23/18 5:00 AM) URINE AND UA Bili Negative Negative 08/23 STOOL *NA* [facility] (08/23/18 5:00 AM) URINE AND UA Blood Negative Negative 08/23 [facility] (08/23/18 5:00 AM) /[address] [facility] [address] URINE AND UA <=1.0 0.1 - 1.0 08/23 STOOL Urobilinogen mg/dL /2018 [facility] URINE AND UA Glucose Negative Negative 08/23 STOOL *NA* [facility] (08/23/18 5:00 AM) CARDIAC Total CK 29 12 - 191 08/22 ENZYMES /2018 [facility] CARDIAC Troponin-I <0.02 0.00 - 08/22 ENZYMES 0.40 /2018 [facility] CARDIAC BNP 73 <=100 08/22 ENZYMES pg/mL /2018 [facility] CHEM PANEL eGFR 92 08/22 Result Comment: The [facility] eGFR is calculated using the CKD-EPI formula. In most young, healthy individuals the eGFR will be >90 mL/min/1.73m2 . The eGFR declines with age. An eGFR of 60-89 may be normal in some populations, particularly the elderly, for whom the CKD-EPI formula has not been extensively validated. Use of the eGFR is not recommended in the following populations:< br/>
Beba viduals with unstable creatinine concentration s, including patients and those with serious co-morbid conditions.<b r/>
Patie nts with extremes in muscle mass or diet.

The data above are obtained from the National Kidney Disease Education Program (NKDEP) which additionally recommends that when the eGFR is used in patients with extremes of body mass index for purposes of drug dosing, the eGFR should be multiplied by the estimated BMI. CHEM PANEL Bili Total 0.2 0.2 - 1.3 08/22 [facility] CHEM PANEL Albumin Lvl 3.0 3.5 - 5.0 08/22 [place] CHEM PANEL Total 7.4 6.4 - 8.4 08/22 [facility] Protein [place] CHEM PANEL Calcium Lvl 9.2 8.5 - 10.5 08/22 [facility] CHEM PANEL Alk Phos 93 39 - 136 08/22 [facility] CHEM PANEL AST 9 0 - 37 08/22 [facility] CHEM PANEL ALT 19 0 - 65 08/22 [facility] CHEM PANEL CO2 30 24 - 32 08/22 [facility] CHE[facility] PANEL Chloride Lvl 101 95 - 109 08/22 [facility] CHEM PANEL Sodium Lvl 136 135 - 145 08/22 [facility] CHEM PANEL Creatinine 0.81 0.50 - / MH Lvl 1.40 /2018 [facility] CHEM PANEL BUN 12 7 - 22 08/22 [facility] CHEM PANEL Glucose Lvl 89 70 - 99 08/22 [facility] CHEM PANEL Potassium 4.1 3.5 - 5.1 / MH Lvl [facility] CHEM PANEL AGAP 9.1 10.0 - 06/ MH 20.0 /2019 [facility] CHEM PANEL B/C Ratio 15 6 - 25 / [facility] A/G Ratio 0.7 0.7 - 1.6 08/22 [facility] CHEM PANEL Globulin 4.4 2.7 - 4.2 08/22 [facility] CHEM PANEL Magnesium 1.9 1.8 - 2.4 / Lvl [facility] CHEM PANEL Phosphorus 3.3 2.5 - 4.5 06 /2018 [facility] ENDOCRINOL S Preg Negative Negative 08/22 OGY *NA* /2018 [facility] (08/22/18 6:05 PM) HEMATOLOGY RDW 17.9 11.5 - 08/22 MH 14.5 /2018 [facility] HEMATOLOGY Platelet 320 133 - 450 06/ MH /2018 [facility] HEMATOLOGY RBC 4.24 4.20 - 08/22 MH 5.40 /2018 [facility] HEMATOLOGY Hgb 9.2 12.0 - 08/22 MH 16.0 /2018 [facility] HEMATOLOGY MCHC 31.6 32.0 - 06 MH 36.0 /2018 [facility] HEMATOLOGY MPV 7.4 7.4 - 10.4 08/22 /2018 [facility] HEMATOLOGY Hct 29.1 36.0 - 08/22 MH 48.0 /2018 [facility] HEMATOLOGY MCV 68.6 80.0 - 08/22 MH 98.0 /2018 [facility] HEMATOLOGY MCH 21.7 27.0 - 08/22 MH 31.0 /2018 [facility] HEMATOLOGY WBC 6.8 3.7 - 10.4 08/22 /2018 [facility] HEMATOLOGY INR 0.91 0.85 - 08/22 MH 1.17 /2018 [facility] HEMATOLOGY PT 12.1 12.0 - 08/22 MH 14.7 /2018 [facility] HEMATOLOGY PTT 26.3 22.9 - 08/22 MH 35.8 /2018 [facility] HEMATOLOGY Eosinophils 0.2 0.0 - 0.5 08/22 MH # /2018 [facility] HEMATOLOGY Microcyte 3+ None Seen 08/22 MH *NA* /2018 [facility] (08/22/18 6:05 PM) HEMATOLOGY Monocytes 8.5 2.0 - 12.0 08/22 /2018 [facility] HEMATOLOGY Lymphocytes 34.3 20.0 - 06 MH 40.0 /2019 [facility] HEMATOLOGY Eosinophils 3.1 0.0 - 4.0 06 /2018 [facility] HEMATOLOGY Basophils 0.6 0.0 - 1.0 08/22 /2018 [facility] HEMATOLOGY Lymphocytes 2.3 1.0 - 5.5 06/03 MH # /2019 [facility] HEMATOLOGY Monocytes # 0.6 0.0 - 0.8 08/22 /2018 [facility] HEMATOLOGY Neutrophils 3.7 1.5 - 8.1 06 MH # /2018 [facility] HEMATOLOGY Segs 53.5 45.0 - 06/03 MH 75.0 /2019 [facility] URINE AND UA WBC 2 0 - 5 08/22 STOOL /2018 [facility] URINE AND UA RBC 1 0 - 2 08/22 STOOL /2018 [facility] URINE AND UA Bili Negative Negative 08/22 STOOL *NA* /2018 [facility] (08/22/18 6:05 PM) URINE AND UA Ketones Negative Negative 08/22 STOOL *NA* [facility] (08/22/18 6:05 PM) URINE AND UA Glucose Negative Negative 08/22 STOOL *NA* [facility] (08/22/18 6:05 PM) URINE AND UA Leuk Est Negative Negative 08/22 [facility] (08/22/18 6:05 PM) [place] URINE AND UA Sq Epi Many /LPF Few /LPF 08/22 [facility] URINE AND UA Hyal Cast 1 0 - 2 08/22 [facility] URINE AND UA Bacteria None Seen None Seen 08/22 [facility] (08/22/18 6:05 PM) [place] [facility] URINE AND UA Mucus Few /LPF None Seen 08/22 STOOL /LPF /2018 [facility] URINE AND UA Blood Negative Negative 08/22 [facility] (08/22/18 6:05 PM) [facility] st URINE AND UA <=1.0 0.1 - 1.0 08/22 STOOL Urobilinogen mg/dL /2018 [facility] URINE AND UA Nitrite Negative Negative 08/22 [facility] (08/22/18 6:05 PM) [place] [facility] URINE AND UA Color Yellow Yellow 08/22 STOOL *NA* [facility] (08/22/18 6:05 PM) URINE AND UA Protein Negative Negative 08/22 [facility] (08/22/18 6:05 PM) [place] [facility] URINE AND UA pH 6.0 5.0 - 8.0 08/22 [facility]OL [facility] URINE AND UA Spec Grav 1.017 <=1.030 08/22 [facility]OL [facility] URINE AND UA Turbidity Clear Clear 08/22 [facility] (08/22/18 6:05 PM) [place] [facility] CARDIAC Troponin-I <0.02 0.00 - 08/18 ENZYMES 0.40 /2018 [facility] CARDIAC BNP 65 <=100 08/18 EN[facility]ES pg/mL /2018 [facility] CARDIAC Troponin-I <0.02 0.00 - 08/18 ENZYMES 0.40 /2018 [facility] CARDIAC Total CK 40 12 - 191 05/ MH ENZYMES /2018 [facility] CHEM PANEL eGFR 88 08/18 Result Comment: The [facility] eGFR is calculated using the CKD-EPI formula. In most young, healthy individuals the eGFR will be >90 mL/min/1.73m2 . The eGFR declines with age. An eGFR of 60-89 may be normal in some populations, particularly the elderly, for whom the CKD-EPI formula has not been extensively validated. Use of the eGFR is not recommended in the following populations:< br/>
Beba viduals with unstable creatinine concentration s, including patients and those with serious co-morbid conditions.<b r/>
Patie nts with extremes in muscle mass or diet.

The data above are obtained from the National Kidney Disease Education Program (NKDEP) which additionally recommends that when the eGFR is used in patients with extremes of body mass index for purposes of drug dosing, the eGFR should be multiplied by the estimated BMI. CHEM PANEL Potassium 3.8 3.5 - 5.1 05/ MH Lvl /2018 [facility] CHEM PANEL Chloride Lvl 102 95 - 109 / [facility] CHEM PANEL Calcium Lvl 8.9 8.5 - 10.5 08/18 [facility] CHEM PANEL CO2 28 24 - 32 08/18 [facility] CHEM PANEL Total 7.4 6.4 - 8.4 / MH Protein [facility] CHEM PANEL Albumin Lvl 3.1 3.5 - 5.0 08/18 [facility] CHEM PANEL AST 12 0 - 37 / [facility] CHEM PANEL ALT 18 0 - 65 08/18 MH [facility] CHEM PANEL Alk Phos 101 39 - 136 / [facility] CHEM PANEL Bili Total 0.2 0.2 - 1.3 / MH [facility] CHEM PANEL Glucose Lvl 96 70 - 99 08/18 MH [facility] CHEM PANEL BUN 14 7 - 22 08/18 [facility] CHEM PANEL Creatinine 0.84 0.50 - 05 MH Lvl 1.40 [facility] CHEM PANEL Sodium Lvl 134 135 - 145 08/18 [facility] CHEM PANEL AGAP 7.8 10.0 - 05 MH 20.0 /2019 [facility] CHEM PANEL Globulin 4.3 2.7 - 4.2 08/18 [facility] CHEM PANEL B/C Ratio 17 6 - 25 08/18 [facility] CHEM PANEL A/G Ratio 0.7 0.7 - 1.6 08/18 [facility] ENDOCRINOL S Preg Negative Negative 08/18 OGY *NA* /2018 [facility] (08/17/18 11:32 PM) HEMATOLOGY Microcyte 2+ None Seen 08/18 MH *ABN* /2018 [facility] (08/17/18 11:32 PM) HEMATOLOGY Eosinophils 0.2 0.0 - 0.5 08/18 MH # /2018 [facility] HEMATOLOGY Monocytes # 0.6 0.0 - 0.8 08/18 [facility] HEMATOLOGY Basophils # 0.1 0.0 - 0.2 08/18 [facility] HEMATOLOGY Lymphocytes 3.2 1.0 - 5.5 08/18 MH # [facility] HEMATOLOGY Segs 52.1 45.0 - 08/18 MH 75.0 /2018 [facility] HEMATOLOGY Lymphocytes 37.8 20.0 - 08/[address] [facility] HEMATOLOGY Basophils 1.0 0.0 - 1.0 08/18 [facility] HEMATOLOGY Eosinophils 2.1 0.0 - 4.0 08/18 [facility] HEMATOLOGY Monocytes 7.0 2.0 - 12.0 08/18 [facility] HEMATOLOGY Neutrophils 4.4 1.5 - 8.1 08/18 MH # /2018 [facility] HEMATOLOGY PTT 25.2 22.9 - 08/18 MH 35.8 /2018 [facility] HEMATOLOGY INR 0.95 0.85 - 08/18 MH 1.17 /2018 [facility] HEMATOLOGY PT 12.5 12.0 - 08/18 MH 14.7 /2018 [facility] HEMATOLOGY Hgb 9.3 12.0 - 08/18 MH 16.0 /2018 [facility] HEMATOLOGY Hct 30.0 36.0 - 08/18 MH 48.0 /2018 [facility] HEMATOLOGY MCH 21.8 27.0 - 08/18 MH 31.0 /2018 [facility] HEMATOLOGY MCV 70.2 80.0 - 08/18 MH 98.0 /2018 [facility] HEMATOLOGY Platelet 333 133 - 450 08/18 [facility] HEMATOLOGY RDW 17.9 11.5 - 08/18 MH 14.5 /2018 [facility] HEMATOLOGY MCHC 31.0 32.0 - 08/18 MH 36.0 /2018 [facility] HEMATOLOGY MPV 7.3 7.4 - 10.4 08/18 [facility] HEMATOLOGY RBC 4.28 4.20 - 08/18 MH 5.40 /2018 [facility] HEMATOLOGY WBC 8.5 3.7 - 10.4 08/18 [facility] URINE AND UA WBC 1 0 - 5 08/18 STOOL /2018 [facility] URINE AND UA RBC 3 0 - 2 08/18 STOOL [facility] URINE AND UA Leuk Est Negative Negative 08/18 STO[facility] (08/17/18 11:32 PM) [place] URINE AND UA Sq Epi Occasional Few /LPF 08/18 STOOL /LPF [facility] URINE AND UA Mucus Few /LPF None Seen 08/18 STOOL /LPF [facility] URINE AND UA Color Yellow Yellow 08/18 STOOL *NA* /2018 [facility] (08/17/18 11:32 PM) URINE AND UA <=1.0 0.1 - 1.0 08/18 STOOL Urobilinogen mg/dL /2018 [facility] URINE AND UA Nitrite Negative Negative 08/18 STOOL (08/17/18 11:32 PM) [place] URINE AND UA Bili Negative Negative 08/18 STOOL *NA* /2018 [facility] (08/17/18 11:32 PM) URINE AND UA Blood Negative Negative 08/18 STOOL (08/17/18 11:32 PM) /2018 [place] URINE AND UA Ketones Negative Negative 08/18 STOOL *NA* /2018 [facility] (08/17/18 11:32 PM) URINE AND UA Protein Negative Negative 08/18 STOOL (08/17/18 11:32 PM) [place] URINE AND UA Glucose Negative Negative 08/18 STOOL *NA* /2018 [facility] (08/17/18 11:32 PM) URINE AND UA Spec Grav 1.018 <=1.030 08/[address] [facility] URINE AND UA pH 5.0 5.0 - 8.0 08/[address] [facility] URINE AND UA Turbidity Clear Clear 08/18 STOOL (08/17/18 11:32 PM) /2018 [place] CARDIAC Troponin-I <0.02 0.00 - 08/[address] [facility] HEMATOLOGY Monocytes 6.9 2.0 - 12.0 08/12 [facility] HEMATOLOGY Segs 51.6 45.0 - 08/12 MH 75.0 /2019 [facility] HEMATOLOGY Lymphocytes 39.0 20.0 - 05 MH 40.0 /2019 [facility] HEMATOLOGY Eosinophils 0.2 0.0 - 0.5 05/ MH # /2018 [facility] HEMATOLOGY Microcyte 2+ None Seen 08/12 MH *ABN* /2018 [facility] (08/12/18 2:58 AM) HEMATOLOGY Neutrophils 4.7 1.5 - 8.1 08/12 MH # /2018 [facility] HEMATOLOGY Monocytes # 0.6 0.0 - 0.8 08/12 MH /2018 [facility] HEMATOLOGY Lymphocytes 3.5 1.0 - 5.5 08/12 MH # /2018 [facility] HEMATOLOGY Basophils 0.2 0.0 - 1.0 08/12 /2018 [facility] HEMATOLOGY Eosinophils 2.3 0.0 - 4.0 08/12 MH /2018 [facility] HEMATOLOGY MCV 69.7 80.0 - 08/12 MH 98.0 /2018 [facility] HEMATOLOGY MCH 22.2 27.0 - 08/[address] [facility] HEMATOLOGY Platelet 377 133 - 450 08/12 MH /2018 [facility] HEMATOLOGY MCHC 31.9 32.0 - 05 MH 36.0 /2018 [facility] HEMATOLOGY RDW 17.4 11.5 - 08/12 MH 14.5 /2018 [facility] HEMATOLOGY MPV 7.4 7.4 - 10.4 08/12 MH /2018 [facility] HEMATOLOGY RBC 4.56 4.20 - 08/12 MH 5.40 /2018 [facility] HEMATOLOGY Hgb 10.1 12.0 - 08/12 MH 16.0 /2018 [facility] HEMATOLOGY Hct 31.7 36.0 - 08/12 MH 48.0 /2019 [facility] HEMATOLOGY WBC 9.1 3.7 - 10.4 08/12 MH /2019 [facility] HEMATOLOGY PTT 21.4 22.9 - 08/12 Result MH 35.8 /2019 Comment: [facility] Checked for clot 08/12/2018 03:17 [facility] HEMATOLOGY PT 12.9 12.0 - 08/[address] [facility] HEMATOLOGY INR 0.99 0.85 - 08/[address] [facility] CARDIAC BNP 22 <=100 08/12 EN[facility]YMES pg/mL /2018 [facility] CARDIAC Total CK 42 12 - 191 08/12 ENZYMES /2019 [facility] CARDIAC Troponin-I <0.02 0.00 - 08/[address] [facility] CHEM PANEL A/G Ratio 0.8 0.7 - 1.6 / [facility] CHEM PANEL AGAP 11.8 10.0 - 05/ MH 20.0 /2019 [facility] CHEM PANEL B/C Ratio 14 6 - 25 / [facility] CHEM PANEL Globulin 4.7 2.7 - 4.2 08/12 [facility] CHEM PANEL eGFR 80 05/ Result Comment: The [facility] eGFR is calculated using the CKD-EPI formula. In most young, healthy individuals the eGFR will be >90 mL/min/1.73m2 . The eGFR declines with age. An eGFR of 60-89 may be normal in some populations, particularly the elderly, for whom the CKD-EPI formula has not been extensively validated. Use of the eGFR is not recommended in the following populations:< br/>
Beba viduals with unstable creatinine concentration s, including patients and those with serious co-morbid conditions.<b r/>
Patie nts with extremes in muscle mass or diet.

The data above are obtained from the National Kidney Disease Education Program (NKDEP) which additionally recommends that when the eGFR is used in patients with extremes of body mass index for purposes of drug dosing, the eGFR should be multiplied by the estimated BMI. CHEM PANEL AST 15 0 - 37 08/12 MH [facility] CHEM PANEL Alk Phos 110 39 - 136 08/12 [facility] CHEM PANEL ALT 20 0 - 65 08/12 [facility] CHEM PANEL Bili Total 0.3 0.2 - 1.3 08/12 [facility] CHEM PANEL Creatinine 0.92 0.50 - 05/ MH Lvl 1.40 /2018 [facility] CHEM PANEL Chloride Lvl 100 95 - 109 08/12 [facility] CHEM PANEL CO2 24 24 - 32 / [facility] CHEM PANEL Sodium Lvl 132 135 - 145 08/12 [facility] CHEM PANEL Potassium 3.8 3.5 - 5.1 / MH Lvl [facility] CHEM PANEL Calcium Lvl 9.4 8.5 - 10.5 08/12 [facility] CHEM PANEL Total 8.5 6.4 - 8.4 / MH Protein [facility] CHEM PANEL Albumin Lvl 3.8 3.5 - 5.0 08/12 [facility] CHEM PANEL Glucose Lvl 87 70 - 99 08/12 [facility] CHEM PANEL BUN 13 7 - 22 08/12 [facility] ENDOCRINOL S Preg Negative Negative 08/12 OGY *NA* /2018 [facility] (08/12/18 2:36 AM) ANEMIA Iron 17 30 - 160 07/30 The [place] ANEMIA TIBC 479 228 - 428 07/30 The [place] ANEMIA % Satur Fe 4 12 - 57 07/30 The [place] ANEMIA UIBC 462 110 - 370 07/30 The [place] ANEMIA Ferritin Lvl 14 5 - 204 07/30 The [place] ANEMIA Vitamin B12 284 254 - 1320 07/30 The STUDY Lvl [place] ANEMIA Folate Lvl 7.4 >=3.0 07/30 The STUDY ng/mL [place] CARDIAC Troponin-I <0.02 0.00 - 07/30 The ENZYMES 0.40 [place] CHEM PANEL LDH 111 98 - 192 07/30 The [place] ELECTROLYT CO2 30 24 - 32 07/30 The ES [place] ELECTROLYT Total 7.3 6.4 - 8.4 07/30 The ES Protein [place] ELECTROLYT Alk Phos 116 39 - 136 07/30 The [place] ELECTROLYT B/C Ratio 18 6 - 25 07/30 The ES [place] ELECTROLYT Calcium Lvl 9.1 8.5 - 10.5 07/30 The [place] ELECTROLYT AGAP 10.8 10.0 - 07/30 The ES 20.0 [place] ELECTROLYT AST 8 0 - 37 07/30 The [place] ELECTROLYT ALT 14 0 - 65 07/30 The [place] ELECTROLYT A/G Ratio 0.7 0.7 - 1.6 07/30 The [place] ELECTROLYT Globulin 4.3 2.7 - 4.2 07/30 The ES [place] ELECTROLYT Glucose Lvl 110 70 - 99 07/30 The [place] ELECTROLYT Chloride Lvl 99 95 - 109 07/30 The [place] ELECTROLYT Potassium 3.8 3.5 - 5.1 07/30 The ES Lvl [place] ELECTROLYT Sodium Lvl 136 135 - 145 07/30 The [place] ELECTROLYT Creatinine 0.79 0.50 - 07/30 The Lvl 1.40 [place] ELECTROLYT BUN 14 7 - 22 07/30 The [place] ELECTROLYT eGFR 95 07/30 Result The Comment: [facility] eGFR is calculated using the CKD-EPI formula. In most young, healthy individuals the eGFR will be >90 mL/min/1.73m2 . The eGFR declines with age. An eGFR of 60-89 may be normal in some populations, particularly the elderly, for whom the CKD-EPI formula has not been extensively validated. Use of the eGFR is not recommended in the following populations:< br/>
Beba viduals with unstable creatinine concentration s, including patients and those with serious co-morbid conditions.<b r/>
Patie nts with extremes in muscle mass or diet.

The data above are obtained from the National Kidney Disease Education Program (NKDEP) which additionally recommends that when the eGFR is used in patients with extremes of body mass index for purposes of drug dosing, the eGFR should be multiplied by the estimated BMI. ELECTROLYT Bili Total 0.3 0.2 - 1.3 07/30 The [place] ELECTROLYT Albumin Lvl 3.0 3.5 - 5.0 07/30 The [place] HEMATOLOGY MCHC 31.4 32.0 - 07/30 The 36.0 [place] HEMATOLOGY MCH 22.3 27.0 - 07/30 The 31.0 [place] HEMATOLOGY MCV 71.1 80.0 - 07/30 The 98.0 [place] HEMATOLOGY Hct 30.0 36.0 - 07/30 The 48.0 [place] HEMATOLOGY Hgb 9.4 12.0 - 07/30 The 16.0 [place] HEMATOLOGY Platelet 309 133 - 450 07/30 [place] HEMATOLOGY RDW 17.4 11.5 - 07/30 The 14.5 [place] HEMATOLOGY MPV 7.8 7.4 - 10.4 07/30 [place] HEMATOLOGY RBC 4.22 4.20 - 07/30 The 5.40 [place] HEMATOLOGY WBC 9.6 3.7 - 10.4 07/30 The [place] HEMATOLOGY Eosinophils 0.1 0.0 - 0.5 07/30 The # [place] HEMATOLOGY Monocytes # 0.7 0.0 - 0.8 07/30 The [place] HEMATOLOGY Lymphocytes 1.8 1.0 - 5.5 07/30 The # [place] HEMATOLOGY Neutrophils 6.8 1.5 - 8.1 07/30 The # [place] HEMATOLOGY Basophils # 0.1 0.0 - 0.2 07/30 The [place] HEMATOLOGY Microcyte 2+ None Seen 07/30 The *ABN* [place] (07/30/18 3:23 AM) HEMATOLOGY Monocytes 7.3 2.0 - 12.0 07/30 The [place] HEMATOLOGY Lymphocytes 18.8 20.0 - 07/30 The 40.0 [place] HEMATOLOGY Segs 71.8 45.0 - 07/30 The 75.0 [place] HEMATOLOGY Basophils 0.8 0.0 - 1.0 07/30 The [place] HEMATOLOGY Eosinophils 1.3 0.0 - 4.0 07/30 The [place] HEMATOLOGY Retic Auto 1.7 0.5 - 1.5 07/30 The [place] LIPIDS VLDL 10 07/30 The [place] LIPIDS CHD Risk 3.94 3.90 - 07/30 The 5.80 [place] LIPIDS HDL 50 >=61 mg/dL 07/30 The [place] LIPIDS Trig 50 <=149 07/30 The mg/dL [place] LIPIDS Chol 197 <=199 07/30 The mg/dL [place] LIPIDS LDL 137 <=99 mg/dL 07/30 The (Calculated) [place] SPECIAL Hgb A1C 6.0 <=5.6 % 07/30 The CHEMISTRY [place] URINE AND Occult Bld Negative Negative 07/30 The STOOL [facility] (07/30/18 1:20 AM) /2018 [facility] nds CARDIAC Troponin-I <0.02 0.00 - 07/30 The ENZYMES 0.40 [place] CHEM PANEL Lactic Acid 1.0 0.5 - 2.2 07/30 The l [place] CHEM PANEL Phosphorus 3.7 2.5 - 4.5 07/30 The [place] CHEM PANEL Magnesium 1.8 1.8 - 2.4 07/30 The Lvl [place] URINE AND UA Nitrite Negative Negative 07/30 The STOOL (07/29/18 9:04 PM) /2018 [place] [facility] URINE AND UA Leuk Est Small Negative 07/30 The STOOL *ABN* /2018 [place] (07/29/18 9:04 PM) URINE AND UA Bili Negative Negative 07/30 The STOOL *NA* [place] (07/29/18 9:04 PM) URINE AND UA Blood Negative Negative 07/30 The STOOL (07/29/18 9:04 PM) /2018 [facility] nds URINE AND UA 3.0 0.1 - 1.0 07/30 The STOOL Urobilinogen /2018 [place] URINE AND UA Protein 20 mg/dL Negative 07/30 The STOOL mg/dL [place] URINE AND UA Glucose Negative Negative 07/30 The STOOL mg/dL mg/dL /2018 [place] URINE AND UA Ketones Negative Negative 07/30 The STOOL mg/dL mg/dL [place] URINE AND UA Spec Grav 1.026 <=1.030 07/30 The STOOL [place] URINE AND UA pH 6.5 5.0 - 8.0 07/30 The STOOL [place] URINE AND UA Bacteria Occasional None Seen 07/30 Th e STOOL /HPF /HPF [place] URINE AND UA Mucus Few /LPF None Seen 07/30 The STOOL /LPF /2018 [place] URINE AND UA RBC 3 0 - 2 07/30 The STOOL [place] URINE AND UA Sq Epi Many /LPF Few /LPF 07/30 The STOOL [place] URINE AND UA WBC 6 0 - 5 07/30 The STOOL [place] URINE AND UA Hyal Cast 13 0 - 2 07/30 The STOOL [place] URINE AND UA Color Yellow Yellow 07/30 The STOOL *NA* [place] (07/29/18 9:04 PM) URINE AND UA Turbidity Slight Clear 07/30 The STOOL *ABN* [place] (5/10/19 9:04 PM) RAPID Grp A Strep Positive 3 Negative 07/30 Result The Scr *ABN* Comment: [place] (07/29/18 8:34 PM) "Significant Findings of pos strep called to Ann Ash at 07/29/2018 21:04 by [facility]. Read Back OK." CARDIAC BNP 44 <=100 07/30 The ENZYMES pg/mL [place] CARDIAC Total CK 34 12 - 191 07/30 The ENZYMES [place] CARDIAC Troponin-I <0.02 0.00 - 07/30 The ENZYMES 0.40 [place] CHEM PANEL Lactic Acid 2.8 0.5 - 2.2 07/30 The Lvl [place] CHEM PANEL Lipase Lvl 131 73 - 393 07/30 The [place] CHEM PANEL Magnesium 1.8 1.8 - 2.4 07/30 The Lvl [place] CHEM PANEL Globulin 4.5 2.7 - 4.2 07/30 The [place] CHEM PANEL AGAP 12.5 10.0 - 07/30 The 20.0 [place] CHEM PANEL A/G Ratio 0.7 0.7 - 1.6 07/30 The [place] CHEM PANEL B/C Ratio 13 6 - 25 07/30 The [place] CHEM PANEL eGFR 65 07/30 Result The Comment: [facility] eGFR is calculated using the CKD-EPI formula. In most young, healthy individuals the eGFR will be >90 mL/min/1.73m2 . The eGFR declines with age. An eGFR of 60-89 may be normal in some populations, particularly the elderly, for whom the CKD-EPI formula has not been extensively validated. Use of the eGFR is not recommended in the following populations:< br/>
Beba viduals with unstable creatinine concentration s, including patients and those with serious co-morbid conditions.<b r/>
Patie nts with extremes in muscle mass or diet.

The data above are obtained from the National Kidney Disease Education Program (NKDEP) which additionally recommends that when the eGFR is used in patients with extremes of body mass index for purposes of drug dosing, the eGFR should be multiplied by the estimated BMI. CHEM PANEL Alk Phos 127 39 - 136 07/30 The [place] CHEM PANEL Bili Total 0.4 0.2 - 1.3 07/30 The [place] CHEM PANEL ALT 14 0 - 65 07/30 The [place] CHEM PANEL AST 8 0 - 37 07/30 The [place] CHEM PANEL Albumin Lvl 3.2 3.5 - 5.0 07/30 The [place] CHEM PANEL Creatinine 1.09 0.50 - 07/30 The Lvl 1.40 [place] CHEM PANEL Sodium Lvl 136 135 - 145 07/30 The [place] CHEM PANEL Potassium 3.5 3.5 - 5.1 07/30 The Lvl [place] CHEM PANEL Chloride Lvl 100 95 - 109 07/30 The [place] CHEM PANEL Total 7.7 6.4 - 8.4 07/30 The Protein [place] CHEM PANEL Glucose Lvl 122 70 - 99 07/30 The [place] CHEM PANEL BUN 14 7 - 22 07/30 The [place] CHEM PANEL Calcium Lvl 9.3 8.5 - 10.5 07/30 The [place] CHEM PANEL CO2 27 24 - 32 07/30 The [place] HEMATOLOGY Eosinophils 0.1 0.0 - 0.5 07/30 The # [place] HEMATOLOGY Microcyte 2+ None Seen 07/30 The *ABN* [place] (07/29/18 8:30 PM) HEMATOLOGY Neutrophils 9.1 1.5 - 8.1 07/30 The # [place] HEMATOLOGY Lymphocytes 1.3 1.0 - 5.5 07/30 The # [place] HEMATOLOGY Monocytes # 0.7 0.0 - 0.8 07/30 The [place] HEMATOLOGY Segs 81.3 45.0 - 07/30 The 75.0 [place] HEMATOLOGY Lymphocytes 11.3 20.0 - 07/30 The 40.0 [place] HEMATOLOGY Monocytes 6.3 2.0 - 12.0 07/30 The [place] HEMATOLOGY Eosinophils 0.7 0.0 - 4.0 07/30 The [place] HEMATOLOGY Basophils 0.4 0.0 - 1.0 07/30 The [place] HEMATOLOGY PTT 32.2 22.9 - 07/30 The 35.8 [place] HEMATOLOGY INR 1.08 0.85 - 07/30 The 1.17 [facility] [place] HEMATOLOGY PT 13.8 12.0 - 07/30 The 14.7 [place] HEMATOLOGY Hct 30.3 36.0 - 07/30 The 48.0 [place] HEMATOLOGY Platelet 372 133 - 450 07/30 The [facility] HEMATOLOGY RDW 17.1 11.5 - 07/30 The 14.5 [place] HEMATOLOGY MCH 22.5 27.0 - 07/30 The 31.0 [place] HEMATOLOGY MCV 70.9 80.0 - 07/30 The 98.0 [place] HEMATOLOGY MPV 8.1 7.4 - 10.4 07/30 The [place] HEMATOLOGY MCHC 31.7 32.0 - 07/30 The 36.0 [place] HEMATOLOGY Hgb 9.6 12.0 - 07/30 The 16.0 [place] HEMATOLOGY WBC 11.3 3.7 - 10.4 07/30 The [place] HEMATOLOGY RBC 4.27 4.20 - 07/30 The 5.40 [place] CHEM PANEL Procalcitoni 0.08 0.00 - 07/30 The n Lvl 0.10 [place] ENDOCRINOL hCG Tot <1 07/30 The O[facility] [place] Pathology Reports No Data Provided for This Section Diagnostic Reports Report Value Date Source Brain Pituitary w/wo Patient Name: LEIGH FRYE 2018 [facility] contrast MRI : 1980. Age: 38 years. Gender: Female. MR: [id number]. Location: [facility]. Provider: Iqbal DO. EXAM: Brain Pituitary w/wo contrast MRI. PROVIDED CLINICAL HISTORY: Pituitary mass ident ified on a brain CT. TECHNIQUE: Multi-sequence, m ulti-planar MR of the brain without and with gadolinium contrast. Thin-section pre-and post contrast dynamic T1 images through the sella. CONTRAST: Dotarem, dose not provided by the performing technologist but available elsewhere in the medical record. COMPARISON: CT Brain performed 08/22/2018. FINDINGS: PITUITARY: -- Markedly enlarged het erogenous mass measuring 1.9 cm (AP) x 2.5 cm (medial-lateral) x 2.2 cm (craniocaudal), situated within the pituitary fossa and extending into the suprasellar region, contact ing and slightly superiorly displacing the optic chiasm. The pituitary gland is inseparable from this mass. Features are consistent with microadenoma. -- Normally-situated neur ohypophysis with expected T1 shortening. The infundibulum is not clearly identified, likely compressed and displaced posteriorly. Smoothly contoured and expanded sella. Nor mal sellar contours. Unremar kable sphenoid sinus and cavernous sinus as imaged. BRAIN: No abnormal parenchy mal, ependymal, or meningeal enhancement. No areas of abnormally-restricted diffusion in a pattern suggestive of acute or early subacute ischemia. No clinically significant white matter signal abnorma lity. No acute intracranial hemorrhage. No other fluid collection. No intracranial mass. No cerebellar tonsillar ectopia. Age- consistent brain parenchymal volume. VENTRICLES / CISTERNS / SHIF T: No hydrocephalus. No significant effacement of the basal cisterns or foramen magnum. No significant midline shift. VESSELS: No loss of flow voi ds within the major intracranial vessels or dural [...] significant mastoid signal abnormality. 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 Mass effect on the optic chiasm. No acute intracranial abnormality. SL: [id number] Carotid artery Patient Name: LEIGH FRYE 08/22/2018 [facility] Doppler bilat US : 1980; Age: 38 years Female MR: [id number] Study: Carotid artery Doppler bilat US 08/22/2018 22:59 CDT Clinical Indication: - TIA. Amaurosis fugax. COMPARISON: None TECHNIQUE: Blackwood-scale, color Doppler an d spectral Doppler of the carotid arteries was performed. Any reported ICA stenoses indirectly reference the distal internal carotid diameter as the denominator for the sten osis measurement, utilizing consensus panel criteria. Patient body habitus limits detail. FINDINGS: RIGHT: Mild calcified plaque fo rmation. ICA PSV 129 cm/sec CCA PSV 180 cm/sec ICA/CCA ratio 0.72 Vertebral flow is antegrade. External carotid artery is patent. LEFT: Mild calcified plaque f ormation. ICA PSV 87 cm/sec CCA PSV 152 cm/sec ICA/CCA ratio 0.57 Vertebral flow is antegrade. External carotid artery is patent. Right thyroid nodule measures 3.2 x 2.9 x 1.8 cm . IMPRESSION: 1. RIGHT: ICA stenosis 50-69% by velocity criter ia. 2. LEFT: ICA stenosis <50% by velocity criteria. 3. Right thyroid mass, correlation for a right t hyroid nodule is recommended. Consensus panel Doppler US criteria for diagnosi s of ICA stenosis: Stenosis (%) ICA PSV (cm/sec) ICA/CCA ratio <50 <125 <2.0 50-69 125-230 2.0-4.0 >70 but less than >230 >4.0 near occlusion Near occlusion High, low, or Variable undetectable SL: [id number] Brain wo contrast CT EXAM: CT BRAIN WITHOUT CONTRAST 08/22/2018 [facility] DATE: 08/22/2018 8:45 PM CDT INDICATION: Headache. ADDITIONAL INFORMATION: . COMPARISON: None. TECHNIQUE: Routine axial CT images of the brain were obtained. IV contrast: None. CT imaging performed at this location utilizes radiation dose optimization techniques which include one or more of the following: -Automated exposure control -Adjustment of the mA and/or kV according to pat ient size -Use of iterative reconstruction technique CT Radiation Dose DLP 948 mGy-cm FINDINGS: Nonspecific low-density is p resent within the left occipital lobe may represent infarct or artifact. No acute intracranial hemorrhage detected. Gordon-white matter distinctio n is preserved. The ventricles are normal. The basal cisterns and sulci are normal in size. 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 The paranasal sinuses, orbit s and mastoids are unremarkable. Old fracture to the medial aspect of the inferior right orbital wall with focal fat herniation. IMPRESSION: 1. Nonspecific low-density i s present within the left occipital lobe may represent infarct or artifact. No acute intracranial hemorrhage detected. Please correlate with neurologic symptoms and dedicated MRI brain can be performed for further evaluati on. 2. 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 This can be a source of headache. Dedicated MRI brain can be performed for further evaluation as well. 3. Old fracture to the media l aspect of the inferior right orbital wall with focal fat herniation. If there is further concern for intracranial pathology or acute stroke, MRI of the brain may be performed for complete assessment. SL: SAMGUMARITA Chest 1view DX Clinical Indication: - chest pain, dyspnea x 2 days; 08/22/2018 [facility] Comparison: None FINDINGS: Single AP chest radiograph s hows normal lung volumes without interstitial or airspace opacities, pleural effusions or pneumothorax. The heart size and pulmonary vasculature are normal. The trachea is midline. There are no clinically significant osseous abnormalities noted. IMPRESSION: No chest radiographic evidence of acute cardiopu lmonary disease. SL: DENZEL Chest Pulmonary CT THORAX: PE PROTOCOL 08/18/2018 [facility] Embolism CTA Clinical Indication: - r/o PE. Chest pain. Hist ory of PE. Comparison: CT 08/12/2018 TECHNIQUE: Sequential trans- axial images were obtained thru the chest and upper abdomen after administration of iodinated contrast. CT imaging was performed with exposure control parameters to reduce ra diation dose. Coronal and sa gittal reconstructions were obtained. Coronal MIP reformats were provided. 100 cc of intravenous contrast material was used for the exam. Dose: DLP = 522.35 mGy-cm FINDINGS: PULMONARY EMBOLISM: Suboptim al opacification of the pulmonary arteries severely limits [...] are no pleural effusions. There is no pn eumothorax. AIRWAY: The central airway is patent. HEART: The heart appears at the upper limits of normal for size. There is no pericardial effusion. VASCULAR STRUCTURES:The great vessels are normal in caliber. LYMPH NODES: No evidence of thoracic adenopathy. OSSEOUS STRUCTURES: No acute abnormality seen. VISUALIZED UPPER ABDOMEN: Ga stric lap band. The partially imaged liver appears enlarged. Other: A 2.5 cm right inferior thyr oid lobe heterogeneous nodule is redemonstrated. Further evaluation with thyroid ultrasound can be obtained. IMPRESSION: Suboptimal opacification of the pulmonary arteries severely limits evaluation for pulmonary embolism. No evidence of a central pulmonary artery or overt proximal lobar artery filling defect. Repeat imag ing or VQ scan can be obtained as clinically war ranted. A 10 mm focal opacity within the right upper lobe is identified with mild adjacent hazy interstitial opacities, new since the comparison study may represent a focal infiltrate. A 2.5 cm right inferior thyr oid lobe heterogeneous nodule is redemonstrated. Further evaluation with thyroid ultrasound can be obtained. SL: [facility] Chest 1view DX Chest, single view dated 08/18/2018. 08/17/2018 [facility] HISTORY: Chest pain. Comparison is made to a prior study dated 2018. The heart is normal in size. The cardiomediastinal shadow is stable. The lungs appear clear. The pulmonary vasculature appears normal in caliber. No acute pleural space abnormalities are detected. IMPRESSION: 1. No radiographic evidence of acute cardiopulmo nary disease. SL: 131 Chest Pulmonary CTA CHEST WITH CONTRAST 08/12/2018 [facility] Embolism CTA INDICATION: Chest pain, hist ory of PE, evaluate for PE, off Xarelto, CT dose DLP 510 COMPARISON: Chest radiograph 08/12/2018 TECHNIQUE: CTA of the chest was performed after administration of intravenous contrast. Coronal, sagittal, and 3-D reformatted images were utilized. DISCUSSION: No pulmonary emboli are visi ble. The heart appears mildly enlarged. The aorta is patent and normal in caliber, without evidence of dissection. There is no stenosis at the origins of the supra-aortic great vessels. There is eventration of the bilateral diaphragms. There is mild mosaic groundglass attenuation of the lungs, potentially secondary to underinflation or possible mild pulmonary edema. There is otherwise no consolidation. There is n o pleural effusion. The trachea and major bronchi [...] IMPRESSION: 1. No evidence of pulmonary embolism. 2. Cardiomegaly. Mild mosaic groundglass attenuation of the lungs could potentially be secondary to mild pulmonary edema or may just be secondary to underinflation of the lungs. 3. Mild wall thickening of t he distal esophagus suggests potential esophagitis. 4. A 2.5 cm right thyroid no dule. The [employer] (ACR) consensus guidelines for incidental thyroid nodules detected on CT or MRI recommend: Age < 35 years < 1 cm: No further evaluation >= 1 cm: Evaluate with thyroid ultras ound Age >= 35 years < 1.5 cm: No further evaluation >= 1.5 cm: Evaluate with thyroid ult rasound SL:16 Chest 1view DX Clinical Indication: - chest pain, dyspnea x 2 hours 08/12/2018 [facility] Comparison: None FINDINGS: The AP chest radiograph show s normal lung volumes without interstitial or airspace opacities, pleural effusions or pneumothorax. The cardiomediastinal contours are normal. The t rachea is midline. There are no clinically significant osseous abno rmalities noted. IMPRESSION: No chest radiographic evidence of acute cardiopu lmonary disease. SL:82 Chest Pulmonary Procedure: CT Pulmonary Angiogram. 07/29/2018 [facility] Embolism CTA Clinical Indication: Previou s pulmonary emboli, chest tightness, shortness of breath. Comparison: Chest radiograph 07/29/2018. TECHNIQUE: Sequential trans- axial images were obtained thru the chest and upper abdomen after administration of 100 cc Omnipaque 300 iodinated contrast. Coronal and sagittal MIP reconstructions were obtained (CT pulmonary angiogram). CT imaging performed at this location utilizes radiation dose optimization techniques which include one or more of the following: -Automated exposure control -Adjustment of the mA and/or kV according to pat ient size -Use of iterative reconstruction technique CT Radiation Dose DLP 736 mGy-cm FINDINGS: LUNG PARENCHYMA AND PLEURA: There are no lung nodules. No focal consolidation or significant interstitial lung disease is observed and no pleural effusion is identified. AIRWAY: The central airway is normal. . MEDIASTINUM: There is a 2.5 cm hypodense nodule in the right lobe of the thyroid gland. No significant mediastinal or hilar lymphadenopathy is observed. HEART: There is no evidence of RV strain. The cardiac chambers are otherwise unremarkable. There is no pericardial effusion. VASCULAR STRUCTURES: There a re no segmental pulmonary emboli noted. The main, right and left pulmonary arteries are normal. The great vessels are unremarkable. The thoracic aorta is is free of aneurysm or dissection. The superior vena cava is unrema rkable. VISUALIZED UPPER ABDOMEN: A lap band is present. OSSEOUS STRUCTURES: There ar e no definite significant osseous abnormalities seen. IMPRESSION: 1. No evidence of pulmonary emboli. 2. Right thyroid nodule, fur ther assessment with thyroid ultrasound may be helpful if indicated clinically. SL:[id number] Neck soft tissue wo Clinical Indication: - sore throat 07/30/19 19 [facility] contrast CT Comparison: None Technique: CT of the neck is performed with a multidetector CT. Coronal and sagittal reconstructions were obtained. No intravenous contrast was utilized, decreasing sensitivity. CT imaging performed at this location utilizes radiation dose optimization techniques which include one or more of the following: -Automated exposure control -Adjustment of the mA and/or kV according to pat ient size -Use of iterative reconstruction technique CT Radiation Dose DLP 466 mGy-cm FINDINGS: SOFT TISSUES: There are no n aubrey masses noted. There are no fluid collections or definite abscesses. LYMPH NODES: There is no sub mandibular lymphadenopathy. There is no jugular chain or posterior cervical chain lymphadenopathy or masses. The palatine tonsils appear mildly enlarged. There is no associat ed airway compromise. The nasopharyngeal adenoid s appear unremarkable. SALIVARY GLANDS: The submandibular and parotid g lands are unremarkable. PARANASAL SINUSES AND AIRWAY : Mild mucosal thickening in the left maxillary sinus is noted. The paranasal sinuses are clear without soft tissue thickening or air-fluid levels. The nasopharyngeal, oropha ryngeal, supraglottic and infraglottic airway is unremarkable. SUPRAHYOID NECK: The orophar ynx, oral cavity, parapharyngeal space, and retropharyngeal space are normal on this limited noncontrast CT. INFRAHYOID NECK: The vallecu lae and piriform sinuses are normal. The larynx, hypopharynx, epiglottis and supraglottis are normal on this limited noncontrast CT. ORBITS: There is a remote fr acture of the inferior orbital wall. The visualized orbits are otherwise unremarkable. VASCULAR STRUCTURES: The jugular veins and carot id vessels are unremarkable. OSSEOUS STRUCTURES: There ar e no fractures or dislocations. There are no lucencies at the bases of the mandibular teeth to suggest abscess. There are no radiopaque foreign bodies noted. THYROID GLANDS: There is a 2 .2 cm hypodensity in the inferior right thyroid lobe. VISUALIZED LUNG APICES: There are no pulmonary m asses or consolidation. If there is further concern for neck masses or malignancy, postcontrast neck CT, PET/CT imaging or MRI of the neck should be performed for complete assessment. IMPRESSION: 1. Mildly prominent bilater al palatine tonsils, which can be seen with tonsillitis. No associated airway compromise. 2. Negative limited noncont rast evaluation for peritonsillar abscess formation. 3. A 2.2 cm right thyroid l obe hypodensity, recommend nonemergent thyroid sonogram SL: ITH-M Chest 2 views DX Clinical Indication: Chest pain, shortne ss of breath.. 07/29/2018 [facility] Comparison: None FINDINGS: PA and lateral views of the chest have been prov ided. Lungs are clear. Heart size is normal. Central pulmonary vasculat ure appears normal. No effusion. No pneumothorax. No radiographically apparent acute osseous abnor mality. IMPRESSION: 1. No radiographically apparent acute cardiopulm onary process. SL: [id number] Consultation Notes No Data Provided for This Section Discharge Summaries No Data Provided for This Section History and Physicals No Data Provided for This Section Vital Signs Vital Sign Value Date Comments Source Respitory Rate 18 08/26/2018 [facility] Systolic (mm Hg) 138 08/26/2018 [facility] Diastolic (mm Hg) 81 08/26/[address] Temperature Oral (F) 98.3 F 08/26/2018 [facility] Heart Rate 65 08/26/2018 [facility] Systolic (mm Hg) 130 08/25/2018 [facility] Diastolic (mm Hg) 71 08/25/[address] Respitory Rate 18 08/25/2018 [facility] Heart Rate 74 08/25/2018 [facility] Temperature Oral (F) 98.3 F 08/25/2018 [facility] Systolic (mm Hg) 130 08/25/2018 [facility] Diastolic (mm Hg) 78 08/25/[address] Respitory Rate 18 08/25/2018 [facility] Heart Rate 74 08/25/2018 [facility] Temperature Oral (F) 98.6 F 08/25/2018 [facility] BMI Calculated 55.99 08/23/2018 [facility] Height 182.88 cm 08/23/2018 [facility] Weight 187.273 08/23/2018 [facility] Weight 190.909 08/22/2018 [facility] BMI Calculated 57.08 08/22/2018 [facility] Height 182.88 cm 08/22/2018 [facility] Respitory Rate 18 08/18/2018 [facility] Systolic (mm Hg) 138 08/18/2018 [facility] Diastolic (mm Hg) 73 08/18/[address] BMI Calculated 56.4 08/18/2018 [facility] Weight 188.636 08/18/2018 [facility] Height 182.88 cm 08/18/2018 [facility] Temperature Oral (F) 98.6 F 08/18/2018 [facility] Systolic (mm Hg) 137 08/18/2018 [facility] [facility] Diastolic (mm Hg) 88 08/18/[address] Respitory Rate 18 08/18/2018 [facility] Heart Rate 93 08/18/2018 [facility] Respitory Rate 20 08/12/2018 [facility] Systolic (mm Hg) 112 08/12/2018 [facility] [facility] Diastolic (mm Hg) 51 08/12/[address] Respitory Rate 25 08/12/2018 [facility] Systolic (mm Hg) 146 08/12/2018 [facility] [facility] Diastolic (mm Hg) 73 08/12/[address] Respitory Rate 15 08/12/2018 [facility] Systolic (mm Hg) 126 08/12/2018 [facility] Diastolic (mm Hg) 66 08/12/[address] Height 175.26 cm 08/12/2018 [facility] BMI Calculated 62.15 08/12/2018 [facility] Weight 190.909 08/12/2018 [facility] Heart Rate 66 08/12/2018 [facility] Temperature Oral (F) 98.7 F 08/12/2018 [facility] Temperature Oral (F) 97.9 F 07/30/2018 [place] Heart Rate 76 07/30/2018 [facility] Respitory Rate 18 07/30/2018 [facility] [place] Systolic (mm Hg) 111 07/30/2018 [facility] [place] Diastolic (mm Hg) 66 07/30/2018 [facility] [place] Respitory Rate 17 07/30/2018 [facility] Heart Rate 83 07/30/2018 [facility] [place] Temperature Oral (F) 97.9 F 07/30/2018 [place] Systolic (mm Hg) 124 07/30/2018 [facility] [place] Diastolic (mm Hg) 80 07/30/2018 [facility] [place] Systolic (mm Hg) 106 07/30/2018 [facility] [place] Diastolic (mm Hg) 66 07/30/2018 [facility] [place] Respitory Rate 18 07/30/2018 [facility] Heart Rate 72 07/30/2018 [facility] [place] Temperature Oral (F) 98.0 F 07/30/2018 [place] Weight 200.142 07/30/2018 [facility] [place] BMI Calculated 59.84 07/30/2018 [facility] Height 182.88 cm 07/30/2018 [facility] [place] BMI Calculated 56.12 07/30/2018 [facility] Weight 187.682 07/30/2018 [facility] [place] Height 182.88 cm 07/30/2018 [facility] [place] Encounters Location Location Encounter Encounter Reason Attending ADM SD Stat Source Details Type Number For Provider Date Date Visit [facility] [id number] Beck 07/30 07/30 Netta Saavedra Kirstie [facility] Emergency [id number] [facility] 08/12 [facility] [id number] Lip[facility] 08/18 08/18 [facility] [id number] Cherie 08/22 08/26 [facility] Tushar [facility] Procedures Procedure Code Date Perfomer Comments Source Appendectomy [id number] [facility] section [id number] [facility] ESWL - [id number] Extracorporeal shock [facility], wave lithotripsy of [facility] bile duct calculus Laparoscopic [id number] 2010 adjustable gastric [place], banding<sup>1</sup> [facility] Partial resection of [id number] colon [place] Assessment and Plan Assessment and Plan Date Source Extracted from:Title: neuro 08/26/2018 [facility] Author: Dilia Metzger MD Date: 08/25/18 Impression and Plan A 1. persistent headache past few days wit h photo/phono-phobia and blurred vision- suspect migraine though could be due to pituitary tumor pressure as well 2. 1.8cm pituitary tumor per head ct 3. obesity 4. atrial fib per pt 5. hx of PE- been not taking xarelto- but was also on eliqui s 6. anemia P - No relief with imitrex subQ, prednisone - IM DHE - Increase topamax to 50 mg bid - Consider starting IV depacon 500 mg q8 if DHE doesnt help - Awaiting transfer to a facility with n eurosurgery on board for pituitary adenoma - Will follow Extracted from:Title: neuro, dr. porter Author: Amado Porter DO Date: 08/23/18 Impression and Plan A 1. persistent headache past few days wit h photo/phono-phobia and blurred vision- suspect migraine 2. 1.8cm pituitary tumor per head ct 3. obesity 4. atrial fib per pt 5. hx of PE- been not taking xarelto- but was also on eliqui s?? 6. anemia etc. P -pending brain mri- also do pituitary protocol -give one time dose of sc sumatriptan and toradol for headac he -will follow Extracted from:Title: General Admission H&P * Author: Cherie Finley MD Date: 08/22/18 Impression and Plan 1. Intractable headache 2. Possible left occipital infarct vs artifact 3. Pituitary macroadenoma 4. HTN 5. Paroxysmal Afib 6. pmh of PE 7. Morbid obesity s/p gastric lap band 8. GERD PLAN: Admit to observation unit w/ telemetry monitoring Headache partially improved after morphine given in ER. Headache ddx: Migraine (most likely) vs Pit macroadenoma vs CVA Needs further evaluation and monitoring for CVA given CT findings and her risk factors for the same Will order MRI, Neurology consult in am Resume home meds once reconciled Symptom control GI VTE ppx Pt full code Extracted from:Title: Discharge Summary 07/30/2018 [facility] Author: Laney Wooten MD Date: 07/30/18 Hospital Discharge/Transfer Summary Patient Name: LEIGH FRYE Admission Date: 07/30/2018 05:16 Discharge Date: 07/30/2018 15:06 Discharging Physician: Laney Wooten MD Code Status: No Code Status for this patient Consulting Physicians: Enedina Baker MD Office: Service: Gastroenterology Jerel Dixon MD Office: Service: Ca rdiology Diagnoses This Visit (R07.9) (J03.90) Acutechestpain(R07.9) Acutetonsillitis(J03.90) Thyroidnodule(E04.1) Other Diagnosis: Chest pain, unspecified (R07.9) Acute tonsillitis, unspecified (J03.90) Nontoxic single thyroid nodule (E04.1) Procedures: Procedures Laparoscopicadjustablegastricbanding Partialresectionofcolon Appendectomy Cesareansection ESWL-Extracorporealshockwavelithotripsyofbileductcalculus History of Present Illness: Patient is a 38-year-old woman with a pa st medical history significant for PE 9 months ago currently off Xarelto, history of anemia, blood transfusions, morbid obesity, gastric lap band, hypertension hy perlipidemia, carcinoid tumor, the prese nts with chest pain and sore throat. Patient states that she has been feeling dizzy and lightheaded for the last several weeks, feeling that her "equilibriu m is off ". Over the last several days patient was also experiencing midsternal chest pain radiating to the left nonexertional also associated with shortness of breath. Patient denies hematochezia but does report dark stools. In addition, 2 days ago patient developed sore throat, odyno phagia. Hospital Course/ Discharge Plan: Chest pain, resolved. Unremarkable telem etry. Completed lipid panel, hemoglobin A1c, troponins, TSH, echocardiogram. Cardiology consulted, recommendations appreciated. Patient to follow up with cardiology Lightheadedness, dizziness Possible 2/2 complicated migraine. Patient started on sumatryptan with improvement. Symptomatic microcytic anemia. Unremarka ble hemoglobin, negative stool guaiac, anemia studies. Patient ran out of Xarelto several days ago. Her PE was 9 months ago. Will continue on Xarelto and patient to follow up with PCP. GI consulted, re commendations appreciated. Patient to follow with GI at discharge. Hypercoagulability, patient had a pulmon martha embolism 9 months ago, will continue Xarelto. Strep throat, pharyngitis tonsillitis, continue Augmentin fo r 7 days. Lactic acidosis, resolved Leukocytosis likely due to strep throat, resolved 2.2 cm thyroid hypodensity, patient shou ld follow-up with PCP/endocrinology and have dedicated imaging and evaluation. Laboratory Data: [facility] BUN: 14 [...] (07/30/18) Discharge Medications: Please see attached medication reconc iliation Condition at Discharge: Stable Discharge Instructions: Please notify your physician if any of the following occur: Bleeding, Fever, Nausea, Pain, Shortness of breath, Signs of infection, Swelling Discharge Diet: Home Diet: Diet Heart Healthy Discharge Activity: As tolerated Appointments: Follow Up With Jerel Dixon MD, Call for appointmen t, within: As Needed, reason: Follow Up On Treatment Samuel, Enedina Goncalves MD, Call for appoi aleksandr, within: 2 Weeks, reason: Follow Up On Treatment Time spent during patient encounter: Hos pital discharge day management, more than 30 minutes. Extracted from:Title: Cardiology Consultation Author: Jerel Dixon MD Date: 07/30/18 Impression and Plan 1. Atypical CP - rec'd NSAIDs. Echo reas suring. Low suspicion for ischemic origin. No further CV workup unless abnml trops or labile ECG changes. 2. Morbid obesity 3. Strep + 4. Anemia - outpt gi eval Please call if further questions. Extracted from:Title: General Admission H&P * Author: Beck Saavedra MD PHD Date: 07/29/18 Impression and Plan Patient is a 38-year-old woman with a pa st medical history significant for PE 9 months ago currently off Xarelto, history of anemia, blood transfusions, morbid obesity, gastric BAND, hypertension hyperl ipidemia, carcinoid tumor, the presents with chest pain and sore throat. Chest pain, will monitor on telemetry ch aubrey lipid panel hemoglobin A1c, trend troponins, check TSH, echocardiogram, consult cardiology Lightheadedness, dizziness likely due to symptomatic anemia, will obtain stool guaiac anemia studies, consult GI Symptomatic microcytic anemia, trend hem oglobin, will obtain stool guaiac, anemia studies, consult GI. Patient ran out of Xarelto several days ago. Her PE was 9 months ago, will hold off anticoagulation until anemia evaluated Hypercoagulability, patient had a pulmon martha embolism 9 months ago, she recently ran out of Xarelto, will hold off further anticoagulation until anemia evaluated Strep throat, pharyngitis tonsillitis, continue Augmentin Lactic acidosis, rehydrate Leukocytosis likely due to strep throat 2.2 cm thyroid hypodensity, patient shou ld be advised to follow-up with endocrinology and have dedicated imaging once she is more clinically stable Prophylaxis, heparin sq per hospital protocol Plan of Care No Data Provided for This Section Social History Social History Date Source Social History TypeResponse 07/30/2018 [facility] Substance Abuse Use: None. Alcohol Never Smoking Status Former smoker; Type: Cigarettes; Ready t o change: Yes; Concerns about tobacco use in household: No; Exposure to Tobacco Smoke None; Cigarette Smoking Last 365 Days No; Reg Smoking Cessation Counseling Yes; Stopped at age: 37; entered on: 07/30/18 Social History TypeResponse 07/30/2018 [facility] Substance Abuse Use: None. Alcohol Never Smoking Status Former smoker; Type: Cigarettes; Ready t o change: Yes; Concerns about tobacco use in household: No; Exposure to Tobacco Smoke None; Cigarette Smoking Last 365 Days No; Reg Smoking Cessation Counseling Yes; Stopped at age: 37; entered on: 08/22/18 Family History No Data Provided for This Section Advance Directives No Data Provided for This Section Functional Status No Data Provided for This Section
--- OUTSIDE RECORDS SUMMARY | 2020-03-01 14:24 | XMS REPORT | Continuity of Care Document ---
:1980 Author Organization [facility] t Address [address] 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 Other Provider Unavailable Unavailable ANDREW VELASCO Emergency Provider [address] [place] [phone] PHYSICIAN Primary Care Physician Unavailable Unavailab le TYRESE Next of Kin [address] [place] [address] GRANT VELASCO Admitting Provider [address] [facility] [address] VADIM Next of Kin [address] [place]RL[place] 52 [phone] [address] [place] [address] ERMIAS POTTER Primary Care Physician [address] [place] [address] MD MAEVE L Emergency Provider [address] [place] [address] [place] [address] [address] Sib[address] [place] [address] [address] [place] [address] MD JAMIE GONZALEZ Admitting Provider [address] [phone] [place] [address] MD VALENTINO O Emergency Provider [address] [place] [address] MARCELL LOPEZ MD E Admitting Provider [address] [place] [address] DO AILIN Emergency Provider [address] [facility] [email or web address] [address] LEONARDO BLUE MD A Emergency Provider [facility] [place] [address] MELVA Unavailable [address] [phone] [place] [address] MELVA Unavailable [address] [phone] [place] [address] Melva Child [address] [place] [address] Melva Unavailable Unavailable Melva Mother Unavailable Unavailable Melva Sibling [address] [phone] [place] [address] [place] Melva Sibling [address] [place] [address] Care Team Providers Name Role Phone Sharpless Primary Care Physician Wilbert HERNANDEZ E Attending Clinician Jerrod Rutledge Attending Clinician Freda CARRANZA, G Attending Clinician Frida Humphries MD Attending Clinician FRIDA HUMPHRIES Attending Clinician Unavailable Brian Attending Clinician Tushar Attending Clinician Nick Attending Clinician Keri Attending Clinician CIARA MCCRARY Attending Clinician Unavailable Keri Admitting Clinician ABDULAZIZ MELTON Admitting Clinician Unavailable Payers Payer Name Policy Type Policy Effective Date Expiration Date Sour ce Number PENDING [id number] [address] [facility] [id number] 06/2016-Present Problems Condition Condition Condition Status Onset Resolution Last Treating Co mments Source Name Details Category Date Date Treatment Clinician Date HEADACHE Diagnosis Active 2018-08-31 M emoria AND CHEST 08-22 22:01:00 l PAIN HEADACHE 00:00: Jorge n AND CHEST 00 PAIN Active 08/22/2018 [facility] CHEST PAIN Diagnosis Active 2018-08-23 Memoria 5-29 12:05:00 l CHEST 00:00: Otilio PAIN 00 Active 08/17/2018 [facility] CP Diagnosis Active 2018-08-23 Mem oria 08-12 12:05:00 l CP 00:00: Otilio 00 Active 08/12/2018 [facility] FEVER SORE Diagnosis Active 2018-07-29 Memoria THROAT 5-10 23:13:00 l FEVER 00:00: Otilio SORE 00 THROAT Active 07/29/2018 [facility] ACUTE Diagnosis Active 2018-08-01 Mem oria TONSILLITI 5-10 10:19:00 l S, ACUTE ACUTE 00:00: [place] CHEST PAIN TONSILLITI 00 S, ACUTE CHEST PAIN Active 07/29/2018 [facility] Morbid Morbid Disease Active [facility] St obesity obesity 7-15 [facility] - due to due to 00:00: Medical excess excess 00 Center calories calories Acute Acute Disease Active [facility] St right right 7-14 [facility] - flank pain flank pain 00:00: Me dical 00 Center Ureteropel Ureteropel Disease Active [facility] paulino paulino 7-14 [facility] - junction junction 00:00: Medica l (UPJ) (UPJ) 00 Center obstructio obstructio n n 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) 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/2018 [facility] Pulmonary Problem Resolve 2018-08-27 M emoria embolism d 22:32:00 l (disorder) Jorge n Pulmonary embolism (disorder) Resolved Problem 08/27/2018 [facility] Hyperlipid Problem Active 2018-08-27 M emoria emia 22:32:00 l (disorder) Jorge n Hyperlipid emia (disorder) Active Problem 08/27/2018 [facility] Hypertensi Problem Active 2018-08-27 M emoria ve 22:32:00 l disorder, Otilio systemic Hypertensi arterial ve (disorder) disorder, systemic arterial (disorder) Active Problem 08/27/2018 [facility] CHEST Diagnosis Active 2018-08-01 Mem oria PAIN, 10:19:00 l UNSPECIFIE CHEST Kelsey nn D PAIN, UNSPECIFIE D Active [facility] ACUTE Diagnosis Active 2018-08-01 Mem oria TONSILLITI 10:19:00 l S, ACUTE Otilio UNSPECIFIE TONSILLITI D S, UNSPECIFIE D Active [facility] HEADACHE Diagnosis Active 2018-08-31 M emoria 22:01:00 l HEADACHE Jorge n Active [facility] Chest Problem 2018-2018-08-20 2018-08-20 M emoria pain, 5-30 23:48:49 23:48:49 l unspecifie Chest 17:00: Kelsey nn d pain, 00 unspecifie d 08/18/2018 08/20/2018 [facility] Pneumonia, Problem 2018-2018-08-20 2018-08-20 Memoria unspecifie 08-18 23:48:49 23:48:49 l d organism 17:00: Jorge wright Pneumonia, 00 unspecifie d organism 08/18/2018 08/20/2018 [facility] Diarrhea, Problem 2018-2018-08-20 2018-08-20 Memoria unspecifie 08-18 23:48:49 23:48:49 l d 17:00: Otilio Diarrhea, 00 unspecifie d 08/18/2018 08/20/2018 [facility] Esophagiti Problem 2018-2018-08-14 2018-08-14 Memoria s, 5- 23:33:07 23:33:07 l unspecifie 17:00: Jorge n d Esophagiti 00 s, unspecifie d 08/12/2018 08/14/2018 [facility] Nontoxic Problem 2018-2018-08-14 2018-08-14 Memoria single - 23:33:07 23:33:07 l thyroid Nontoxic 17:00: Kelsey nn nodule single 00 thyroid nodule 08/12/2018 08/14/2018 [facility] Allergies, Adverse Reactions, Alerts Allergy Allergy Status Severity Reaction(s) Onset Inactive Treating Comm ents Source Name Type Date Date Clinician No Known DA Active [facility] 08[facility]25 [facility] 00:00: [address] Losartan Propensi Active Dizzy and [facility]B [facility] - adverse 00:00: Medical reaction 00 Center s Social History Social Habit Start Date Stop Date Quantity Comments Source Sex Assigned At [facility] Alcohol intake 2019-12-24 2019-12-24 Current drinker [facility] - 00:00:00 00:00:[address] [facility] (finding) Social History 2018-07-30 2018-07-30 [facility] 10:57:34 10:57:34 Tobacco Comment 2016-10-02 2016-10-02 "stress smoker" [facility] - 00:00:00 00:00:00 [facility] Alcohol Comment 2016-10-02 2016-10-02 rare [facility] - 00:00:00 00:00:00 [facility] Smoking Status Start Date Stop Date Source Light tobacco smoker 2019-12-24 00:00:00 [facility] Medications Ordered Filled Start Stop Current Ordering Indication Dosage Frequency Signature Comments Components Source Medication Medication Date Date Medication? Clinician (SIG) Name Name ondansetron 2019-03 Yes 4mg Take [address] [facility] (ZOFRAN-ODT 0-05 tablet (4 [place] [facility] - ) 4 MG 00:00: mg total) Medica l disintegrat 00 by mouth Cent er ing tablet every 8 (eight) hours as needed. pantoprazol 2019-03- No 20mg QD Take [address] [facility] e 0-05 10-25 tablet (20 [facility] - (PROTONIX) 00:00: 23:59 mg total) M edical 20 MG 00 :00 by mouth Center tablet daily for 20 days. acetaminoph 2019-03- No 1{tbl} Take [address] en-codeine 0-05 10-15 tablet by [place] [facility] - (TYLENOL 00:00: 23:59 mouth Medical #3) 300-30 00 :00 every 6 Center mg per (six) tablet hours as needed for Pain for up to 10 days. Max Daily Amount: 4 tablets traMADoL 2019-03 Yes 50mg Take [address] 100 mg MP25 0-04 by mouth. [place] [facility] - 23:07: Medical [address] [place] amLODIPine 2019-03- No 7.5mg Take 7.[address] (NORVASC) 5 0-01 10-15 mg by [facility] - MG tablet 00:00: 23:59 mouth. Medic al 00 :00 [place] aspirin 81 2019-03- No 81mg Take [address] MG chewable 0-01 10-15 by mouth. Hannah kes - tablet 00:00: 23:59 Medical 00 :00 [place] apixaban 2019- Yes 5mg Take [address] (ELIQUIS) 5 9-30 12-29 by mouth. Hannah kes - mg Tab 00:00: 23:59 Medical tablet 00 :00 [place] metoprolol 2019- No 37.5mg Take 37.[address] tartrate 9-30 10-14 mg by [facility] - (LOPRESSOR) 00:00: 23:59 mouth. Med ical 25 MG 00 :00 [place] tablet furosemide 2019- No 40mg Take [address] (LASIX) 40 9-30 10-14 by mouth. [place] [facility] - MG tablet 00:00: 23:59 Medical 00 :00 [place] QUEtiapine 2019- No 300mg Take [address] (SEROQUEL) 9-30 10-14 mg by [facility] - 100 MG 00:00: 23:59 mouth. Medical tablet 00 :00 [place] montelukast 2019- No 10mg Take [address] (SINGULAIR) 9-30 10-14 by mouth. Hannah kes - 10 mg 00:00: 23:59 Medical tablet 00 :00 [place] atorvastati 2019- No 80mg Take [address] n (LIPITOR) 9-30 10-14 by mouth. Hannah kes - 80 MG 00:00: 23:59 Medical tablet 00 :00 [place] vancomycin 2019- No 125mg Take [address] 50 mg/mL 9-30 10-08 mg by [facility] - SolR 00:00: 23:59 mouth. Medical 00 :00 [place] HYDROcodone Yes 1{tbl} Take [address] -acetaminop 8-18 tablet by [place] [facility] - hen (NORCO 00:00: mouth Medica l 10-325) 00 every 6 Center 10-325 mg (six) per tablet hours as needed for pain. potassium Yes 20meq Take [address] chloride 8-03 mEq by [facility] - (KLOR-CON) 00:00: mouth. Medic al 10 MEQ CR 00 Center tablet topiramate Yes 50 mg = 1 Me moria 50 mg oral -06 tab, PO, l tablet 22:33: BID, # 60 Jorge n 00 tab, 1 Refill(s), Pharmacy: [facility] Dihydroergo No Notes: Levy sharee tamine 08-25 (Same as: l Mesylate 1 21:58: D.H.E. 45) H ermann MG/ML 00 Injectable Solution [DHE-45] ketOROLAC No 4 days Memor ia 30 mg/mL 08-25 l injectable 18:46: MEDICATION H ermann solution 00 WASTE Product Size: 30 mg Product Wasted: ___ mg Prednisone No Notes: Memor ia 08-25 Take with l 13:57: food. Topamax No Notes: Memoria -06 (Same As: l 02:00: Topamax) "Do Not Crush" Imitrex No 6 mg, Memoria 08-24 Route: l 21:45: SUB-Q, ONCE, Dosing Weight 187.273, kg, Start date: 08/24/18 16:45:00 CDT, Stop date: 08/24/18 16:45:00 CDT topiramate Yes 25 mg = 1 Me moria 25 mg oral 08-24 cap, PO, l capsule 21:01: Q12H, X 30 Herm edwin 00 day, # 60 cap, 0 Refill(s), Pharmacy: [facility] Imitrex No Notes: Memoria 05 For l 20:07: SUBCUTANEO US use only Prednisone No Notes: Memor ia -05 Take with l 19:49: food. Ketorolac No 10 mg = 1 Mem oria Tromethamin 6-05 tab, PO, l e 10 MG 15:41: Q6H, X 3 Jorge n Oral Tablet 00 day, # 12 tab, 0 Refill(s), Pharmacy: [facility] Morphine No Notes: Memoria 6-05 (Same l 15:38: as:MORPhin Otilio 00 e Sulfate) Hydrochloro No 1 tab, Levy sharee thiazide 25 6-05 Route: PO, l MG / 14:00: Drug Form: Otilio Lisinopril 00 TAB, 20 MG Oral Dosing Tablet Weight 187.273, kg, Daily, Start date: 08/24/18 9:00:00 CDT, Duration: 30 day, Stop date: 09/22/18 9:00:00 CDT atorvastati No Notes: Levy sharee n 05 (Same as: l 02:00: Lipitor) Famotidine No Notes: Memor ia 20 MG Oral -04 (Same as: l Tablet 22:00: Pepcid) [place] [Pepcid] metoprolol No Notes: Memor ia tartrate 6-04 (Same as: l 22:00: Lopressor) Morphine No 4 mg, 2 Memori a 6-04 mL, Route: l 21:27: IVP, Drug form: SOLN, Q4H, Dosing Weight 187.273, kg, PRN Pain Score 7-10, Start date: 08/23/18 16:27:00 CDT, Duration: 30 day, Stop date: 09/22/18 16:26:00 CDT Compazine No Notes: Memori a 6-04 (Same as: l 20:34: Compazine) ketOROLAC No 4 days Memor ia 30 mg/mL 6-04 l injectable 20:34: MEDICATION H ermann solution WASTE Product Size: 30 mg Product Wasted: ___ mg Benadryl No Notes: Memoria 6-04 (Same as: l 20:34: Benadryl) tramadol No Notes: Not Mem oria hydrochlori - to exceed l de 50 MG 18:00: 400mg/day. Her wright Oral Tablet 00 (Same As: Ultram) Sucralfate No Notes: Allison Carroll emoria 6-04 interfere l 18:00: w/enteral Otilio 00 feeds - Take 1 hr before or 2 hr after antacids, dairy pdt, meals & minerals - On empty stomach. For patients unable to swallow tablet, dissolve in 10mL - 30mL of water or juice and stir before giving. (Same As: Carafate) Isosorbide No Notes: Memor ia 6-04 (Same l 17:07: as:Imdur) Otilio 00 "Do Not Crush" Take on empty stomach/ full glass of water. Do not crush pantoprazol No Notes: Levy sharee e 6-04 Tablet l 17:07: should not [place] 00 be chewed or crushed. (Same as: Protonix) lisinopril No Notes: Memor ia 6-04 (Same as: l 17:05: Prinivil, Otilio 00 Zestril) Escitalopra No Notes: Levy sharee m -04 (Same as: l 17:04: Lexapro) Otilio 00 hydrochloro No Notes: Elvy sharee thiazide 25 -04 (Same as: l mg oral 17:04: Hydrodiuri Herm edwin tablet 00 l) With food. Tums No Notes: Memoria - (Same As: l 16:57: Tums) Otilio Calcium Carbonate 500 mg = 200 mg elemental calcium Dose = mg calcium carbonate ( mg elemental calcium) Morphine No Notes: Memoria 6- (Same l 14:58: as:MORPhin [place] 00 e Sulfate) Saline No Notes: Memoria Flush 0.9% 08-23 (Same as: l 14:00: BD [place] 00 Posiflush) ketOROLAC No 4 days Memor ia 30 mg/mL 08-23 l injectable 11:43: MEDICATION H ermann solution 00 WASTE Product Size: 30 mg Product Wasted: ___ mg Sumatriptan No Notes: Levy sharee 08-23 For l 11:43: SUBCUTANEO [place] 00 US use only Aspirin 81 No Notes: Do Me moria MG Enteric - not crush l Coated 04:00: or chew. [place] Tablet 00 (Same As: Ecotrin) Saline No Notes: Memoria Flush 0.9% - (Same as: l 03:59: BD [place] 00 Posiflush) Sodium No 1,000 mL, Memori a Chloride 08-23 Rate: 100 l 0.9% IV 03:59: ml/hr, Otilio 1,000 mL 00 Infuse over: 10 hr, Route: IV, Dosing Weight 190.909 kg, Total Volume: 1,000, Start date: 08/22/18 22:59:00 CDT, Duration: 30 day, Stop date: 09/21/18 22:58:00 CDT, 3.16, m2 Acetaminoph No Notes: Do M emoria en - not exceed l 03:59: 4 gm/day. Otilio 00 (Same as: Tylenol) Aspirin No Notes: Memoria 6-04 Take with l 03:12: food. [place] 00 Morphine No 6 mg, Memoria - Route: l 01:44: IVP, Drug [place] 00 form: SOLN, ONCE, Dosing Weight 190.909, kg, Priority: STAT, Start date: 08/22/18 20:44:00 CDT, Stop date: 08/22/18 20:44:00 CDT Xylocaine No Notes: Memori a Viscous 2% - (Same as: l mucous 23:56: Xylocaine) Kelsye nn membrane 00 solution Al No Notes: Memoria hydroxide/M 6-03 (aluminum l g 23:55: hydroxide- [place] hydroxide/s 00 magnesium imethicone hyd-simeth icone 200-200-20 mg/5ml 30 ml ud ZENIA) GI cocktail 0 No 30 mL, Levy sharee (aluminum 6-03 Route: PO, l hydroxide/m 23:21: Dosing Herm edwin agnesium 00 Weight hydroxide/l 190.909, idocaine/si kg, ONCE, methicone) STAT, Start date: 08/22/18 18:21:00 CDT, Stop date: 08/22/18 18:21:00 CDT Reglan No Notes: Memoria 08-22 (Same as: l 21:06: Reglan) Otilio 00 NS (Bolus) No 1,000 mL, Me moria IV 08-22 1,000 l 21:06: ml/hr, [place] 00 Infuse Over: 1 hr, Route: IV, 1,000, Drug form: INJ, ONCE, Priority: STAT, Dosing Weight 190.909 kg, Start date: 08/22/18 16:06:00 CDT, Stop date: 08/22/18 16:06:00 CDT ketOROLAC No 4 days Memor ia 30 mg/mL 08-22 l injectable 21:06: MEDICATION H ermann solution 00 WASTE Product Size: 30 mg Product Wasted: ___ mg Benadryl No Notes: Memoria 08-22 (Same as: l 21:06: Benadryl) Otilio 00 Acetaminoph No Notes: Max Memoria en 08-22 acetaminop l 21:06: hen 4000 Otilio 00 mg/day (4 gm/day). (Same as: Tylenol Extra Strength) Saline No Notes: Memoria Flush 0.9% 08-22 (Same as: l 21:05: BD Otilio 00 Posiflush) ketOROLAC No 15 mg, Memori a 15 mg/mL -30 Route: l injectable 08:48: IVP, Drug He rmann solution 00 form: INJ, ONCE, Dosing Weight 188.636, kg, Priority: STAT, Start date: 08/18/18 3:48:00 CDT, Stop date: 08/18/18 3:48:00 CDT {74 Yes See Memoria (apixaban 5 5-30 Instructio l MG Oral 08:45: ns, 2 Otilio Tablet 00 tablets [Eliquis]) BID x 7 } Pack days then [Eliquis 1 tablet 30-Day BID Starter thereafter Pack] , # 50 tab, 0 Refill(s) Ondansetron Yes 4 mg = 1 Me moria 4 MG 5-30 tab, PO, l Disintegrat 08:43: TID, PRN He rmann ing Tablet 00 Nausea and [Zofran] Vomiting, Dissolve tab under tongue, # 15 tab, 0 Refill(s) {6 Yes See Memoria (Azithromyc 5-30 Instructio l in 250 MG 08:43: ns, Take 2 He rmann Oral Tablet 00 tablets by [Zithromax] mouth the ) } Pack first day [Z-PAKS] then 1 tablet by mouth days 2-5., X 5 day, # 6 tab, 0 Refill(s) Omnipaque No 45 Memoria 300 5-30 mL/min, l injectable 07:12: STAT, Jorge n solution 00 Start date: 08/18/18 2:12:00 CDT, Duration: 1 doses or times sucralfate Yes 1 gm = 1 Mem oria 1 g oral 5-24 tab, PO, l tablet 10:52: QID, # 28 Jorge n 00 tab, 0 Refill(s) Famotidine Yes 20 mg = 1 Me moria 20 MG Oral 5-24 tab, PO, l Tablet 10:51: BID, # 10 Jorge n [Pepcid] 00 tab, 0 Refill(s) Al No Notes: Memoria hydroxide/M 5-24 (aluminum l g 09:32: hydroxide- [place] hydroxide/s 00 magnesium imethicone hyd-simeth icone 200-200-20 mg/5ml 30 ml ud ZENIA) Xylocaine No Notes: Memori a Viscous 2% 5-24 (Same as: l mucous 09:32: Xylocaine) Kelsey nn membrane 00 solution GI cocktail No 30 mL, Levy sharee (aluminum 5-24 Route: PO, l hydroxide/m 09:30: Dosing Herm edwin agnesium 00 Weight hydroxide/l 190.909, idocaine/si kg, ONCE, methicone) STAT, Start date: 08/12/18 4:30:00 CDT, Stop date: 08/12/18 4:30:00 CDT Omnipaque No 45 Memoria 300 5-24 mL/min, l injectable 09:14: STAT, Jorge n solution 00 Start date: 08/12/18 4:14:00 CDT, Stop date: 08/12/18 4:14:00 CDT Acetaminoph No Notes: Do M emoria en 325 MG / 5-24 not exceed l Hydrocodone 08:49: 4gm/day of Otilio Bitartrate 00 acetaminop 10 MG Oral hen. Tablet (Same as: [[place] 10/325] 325/10) Ondansetron No Notes: Levy sharee 5-24 (Same as: l 05:41: Zofran) Otilio MEDICATION WASTE Product Size: 4 mg Product Wasted: ___ mg Morphine No Notes: Memoria 5-24 (Same as: l 05:41: MORPhine [place] Sulfate) Saline No Notes: Memoria Flush 0.9% 5-24 (Same as: l 05:41: BD [place] 00 Posiflush) Isosorbide No Notes: Memor ia 5-12 (Same l 14:00: as:Imdur) Otilio 00 "Do Not Crush" Take on empty stomach/ full glass of water. Do not crush Hydrochloro No 1 tab, Levy sharee thiazide 25 5-12 Route: PO, l MG / 14:00: Drug Form: [place] Lisinopril 00 TAB, 20 MG Oral Dosing Tablet Weight 200.142, kg, Daily, Start date: 07/31/18 9:00:00 CDT, Duration: 30 day, Stop date: 08/29/18 9:00:00 CDT lisinopril No Notes: Memor ia 5-12 (Same as: l 14:00: Prinivil, Otilio Zestril) Escitalopra No Notes: Levy sharee m 5-12 (Same as: l 14:00: Lexapro) [place] 00 hydrochloro No Notes: Levy sharee thiazide 25 5-12 (Same as: l mg oral 14:00: Hydrodiuri Herm edwin tablet 00 l) With food. metoprolol No Notes: Memor ia tartrate 5-12 (Same as: l 02:00: Lopressor) Carafate No Notes: May Mem oria 5-11 interfere l 22:00: w/enteral [place] feeds - Take 1 hr before or 2 hr after antacids, dairy pdt, meals & minerals - On empty stomach. For patients unable to swallow tablet, dissolve in 10mL - 30mL of water or juice and stir before giving. (Same As: Carafate) tramadol No Notes: Not Mem oria hydrochlori 5-11 to exceed l de 50 MG 22:00: 400mg/day. Her wright Oral Tablet 00 (Same As: Ultram) Xarelto No Notes: Memoria 5-11 (Same as: l 22:00: Xarelto) Administer with food Protonix No Notes: Memoria 5-11 Tablet l 21:30: should not be chewed or crushed. (Same as: Protonix) Amoxicillin Yes 1 tab, PO, Memoria 875 MG / 5-11 Q12H, X 7 l Clavulanate 20:04: day, # 14 H ermann 125 MG Oral 00 tab, 0 Tablet Refill(s), [Augmentin Pharmacy: 875-mg] [facility] SUMAtriptan Yes 50 mg = 1 M emoria 50 mg oral 5-11 tab, PO, l tablet 20:04: ONCE, PRN Jorge n 00 Headache, # 9 tab, 0 Refill(s), Pharmacy: [facility] hydrOXYzine No Notes: Levy sharee hydrochlori 5-11 (Same as: l de 19:50: Atarax) Avoid alcohol. ketOROLAC No 4 days Memor ia 15 mg/mL 5-11 l injectable 19:14: MEDICATION H ermann solution 00 WASTE Product Size: 30 mg Product Wasted: ___ mg Sumatriptan No Notes: Levy sharee 5-11 (Same as: l 15:21: Imirtex) Acetaminoph No Notes: Levy sharee en 325 MG / 5-11 (acetamino l butalbital 15:21: phen-butal H ermann 50 MG / 00 bital-caff Caffeine 40 eine MG Oral 325-50-40m Tablet g) Do not exceed 4 gm/day of acetaminop hen. (Same as: Esgic, Fioricet) Amoxicillin No Notes: Levy sharee 875 MG / 07-30 With food. l Clavulanate 14:00: (Same as: H ermann 125 MG Oral 00 Augmentin Tablet 875) [Augmentin 875-mg] heparin No Notes: Memoria 5-11 porcine l 14:00: heparin [place] 00 Acetaminoph No Notes: Levy sharee en 325 MG / 11 (Same as: l Hydrocodone 06:20: [place] Kelsey nn Bitartrate 00 325/5) Do 5 MG Oral not exceed Tablet 4gm/day of [[place] acetaminop 5/325] hen. hydrOXYzine Yes 50 mg, PO, Memoria hydrochlori 5-11 ONCE, 0 l de 06:14: Refill(s) [place] 00 atorvastati Yes 40 mg = 1 M emoria n 40 mg 5-11 tab, PO, l oral tablet 06:13: Daily, 0 He rmann 00 Refill(s) Hydrochloro Yes 1 tab, PO, Memoria thiazide 25 5-11 Daily, # l MG / 06:13: 90 tab, 1 [place] Lisinopril 00 Refill(s) 20 MG Oral Tablet isosorbide Yes 30 mg = 1 Me moria mononitrate 5-11 tab, PO, l 30 mg oral 06:12: QAM, 0 Kelsey nn tablet, 00 Refill(s) extended release rivaroxaban Yes 20 mg = 1 M emoria 20 MG Oral 5-11 tab, PO, l Tablet 06:11: QPM, 0 [place] [Xarelto] 00 Refill(s) escitalopra Yes 20 mg = 1 M emoria m 20 mg 5-11 tab, PO, l oral tablet 06:11: Daily, 0 He rmann 00 Refill(s) pantoprazol Yes 40 mg, PO, Memoria e 5-11 Daily, 0 l 06:10: Refill(s) [place] tramadol 2018- Yes 50 mg = 1 Levy sharee hydrochlori 5-11 tab, PO, l de 50 MG 06:09: TID, 0 Otilio Oral Tablet 00 Refill(s) metoprolol Yes 25 mg = 1 Me moria tartrate 25 5-11 tab, PO, l mg oral 06:08: BID, 0 [place] tablet 00 Refill(s) NS 1,000 mL No 1,000 mL, M emoria 5-11 Rate: 100 l 04:33: ml/hr, Infuse over: 10 hr, Route: IV, Dosing Weight 187.682 kg, Total Volume: 1,000, Start date: 07/29/18 23:33:00 CDT, Duration: 30 day, Stop date: 08/28/18 23:32:00 CDT, 3.14, m2 Nitroglycer No Notes: Levy sharee in -11 (Same l 04:31: as:Nitroqu ick, Nitrostat) "Do Not Crush" Sublingual tablet Morphine No Notes: Memoria 5-11 (Same l 04:31: as:MORPhin e Sulfate) Ondansetron No Notes: Levy sharee 5-11 (Same as: l 04:31: Zofran) MEDICATION WASTE Product Size: 4 mg Product Wasted: ___ mg Glucagon 2018- No 1 mg, Memoria 5-11 Route: IM, l 04:31: Drug form: PDR/INJ, PRN, Dosing Weight 187.682, kg, PRN Blood Glucose Results, Start date: 07/29/18 23:31:00 CDT, Duration: 30 day, Stop date: 08/28/18 23:30:00 CDT Dextrose 2019- No 25 gm, 50 Levy sharee 50% Syringe 5-11 mL, Route: l 04:31: IVP, Drug Form: INJ, Dosing Weight 187.682, kg, PRN, PRN Blood Glucose Results, Start date: 07/29/18 23:31:00 CDT, Duration: 30 day, Stop date: 08/28/18 23:30:00 CDT Dilaudid No Notes: Memoria 5-11 Same as l 03:16: Dilaudid Hydromorpho No 0.5 mg, Mem oria ne 5-11 Route: l 03:08: IVP, ONCE, Dosing Weight 187.682, kg, Priority: STAT, Start date: 07/29/18 22:08:00 CDT, Stop date: 07/29/18 22:08:00 CDT Nitroglycer No Notes: Levy sharee in 0.4 MG 5-11 (Same l Sublingual 02:44: as:Nitroqu H ermann Tablet 00 ick, Nitrostat) "Do Not Crush" Sublingual tablet Amoxicillin No 1 tab, Levy sharee 875 MG / 5-11 Route: PO, l Clavulanate 02:38: Drug Form: Otilio 125 MG Oral 00 TAB, Tablet Dosing Weight 187.682, kg, ONCE, STAT, Start date: 07/29/18 21:38:00 CDT, Stop date: 07/29/18 21:38:00 CDT Amoxicillin No Notes: Levy sharee 875 MG / 5-11 With food. l Clavulanate 02:06: (Same as: H ermann 125 MG Oral 00 Augmentin Tablet 875) [Augmentin 875-mg] Aspirin 81 No Notes: Memor ia MG Chewable 5-11 Take with l Tablet 01:52: food. Ondansetron No Notes: Levy sharee 5-11 (Same as: l 01:52: Zofran) MEDICATION WASTE Product Size: 4 mg Product Wasted: ___ mg Morphine No Notes: Memoria 5-11 (Same l 01:52: as:MORPhin e Sulfate) Saline No Notes: Memoria Flush 0.9% 5-11 (Same as: l 00:35: BD Posiflush) omeprazole Yes 40mg QD Take [address] (PRILOSEC) 7-17 by mouth [facility] - 40 MG 14:02: daily. Medical capsule 43 [facility] lovastatin 2017-0 Yes 40mg QD Take [address] (MEVACOR) 7-17 by mouth [facility] - 40 MG 14:02: nightly. Medical tablet 43 Center tamsulosin 2017-0 Yes .4mg QD Take 1 [facility] (FLOMAX) 7-17 capsule [facility] - 0.4 mg Cp24 00:00: (0.4 mg Med ical 24 hr 00 total) by Center capsule mouth daily. Golytely Golytely No 4000mL Golytely M atagor 236 236 236 da gram-22.74 gram-22.74 gram-22.74 Medical gram-6.74 gram-6.74 gram-6.74 Group gram-5.86 gram-5.86 gram-5.86 gram oral gram oral gram oral solution solution solution Take 4000 Take 4000 Take 4000 mL by oral mL by oral mL by oral route. route. route. lisinopril lisinopril No 1 Q1D lisinopril [place] 20 mg 20 mg 20 mg da tablet Take tablet Take tablet Medical 1 tablet 1 tablet Take 1 Group every day every day tablet by oral by oral every day route. route. by oral route. tramadol tramadol No tramadol [facility] tramadol 50 tramadol 50 No tramadol [place] mg tablet mg tablet 50 mg da TAKE 1 TAKE 1 tablet Medical TABLET BY TABLET BY TAKE 1 Lina up MOUTH TWICE MOUTH TWICE TABLET BY DAILY DAILY MOUTH NEEDED NEEDED TWICE DAILY NEEDED Vital Signs Vital Name Observation Time Observation Value Comments Source BP Diastolic 2019-04-25 00:00:00 80 mm[facility]Hg[facility] Height 2019-04-25 00:00:00 72 [in_i] [facility] BP Systolic 2019-04-25 00:00:00 130 mm[Hg] [facility] Systolic blood 2019-12-25 03:07:00 142 mm[Hg] [facility] Diastolic blood 2019-12-25 03:07:00 80 mm[Hg] [facility] Heart rate 2019-12-25 03:07:00 78 /min [facility] Body temperature 2019-12-25 03:07:00 36.44 Meliza [facility] Respiratory rate 2019-12-25 03:07:00 16 /min [facility] Oxygen saturation in 2019-12-25 03:07:00 97 /min [facility] - Arterial blood by Medical Ce nter Pulse oximetry Body height 2019-12-24 23:04:00 183 cm [facility] Body weight 2019-12-24 23:04:00 233.602 kg [facility] BMI 2019-12-24 23:04:00 69.76 kg/m2 [facility] Respitory Rate 2018-08-26 01:25:00 [facility]ori [facility] Systolic (mm Hg) 2018-08-26 01:25:00 Levy rial [facility] Diastolic (mm Hg) 2018-08-26 01:25:00 Mem [facility] [place] Temperature Oral (F) 2018-08-26 01:25:00 98.3 F [facility] Heart Rate 2018-08-26 01:25:00 [facility] Systolic (mm Hg) 2018-08-25 20:52:00 [facility] [place] Diastolic (mm Hg) 2018-08-25 20:52:00 [facility] [place] Respitory Rate 2018-08-25 20:52:00 [facility] Heart Rate 2018-08-25 20:52:00 [facility] [place] Temperature Oral (F) 2018-08-25 20:52:00 98.3 F [facility] [place] Systolic (mm Hg) 2018-08-25 17:42:00 Levy rial [place] Diastolic (mm Hg) 2018-08-25 17:42:00 Mem [facility] [place] Respitory Rate 2018-08-25 17:42:00 [facility] Heart Rate 2018-08-25 17:42:00 [facility] Temperature Oral (F) 2018-08-25 17:42:00 98.6 F [facility] [place] BMI Calculated 2018-08-23 05:36:00 [facility] Height 2018-08-23 05:36:00 182.88 cm [facility] [place] Weight 2018-08-23 05:36:00 [facility] [place] Weight 2018-08-22 21:04:00 [facility] [place] BMI Calculated 2018-08-22 21:04:00 [facility] [place] Height 2018-08-22 21:04:00 182.88 cm [facility] Respitory Rate 2018-08-18 09:10:00 [facility] [place] Systolic (mm Hg) 2018-08-18 09:10:00 Levy rial [place] Diastolic (mm Hg) 2018-08-18 09:10:00 Mem [facility] [place] BMI Calculated 2018-08-18 04:11:00 [facility] Weight 2018-08-18 04:11:00 [facility] [place] Height 2018-08-18 04:11:00 182.88 cm [facility] [place] Temperature Oral (F) 2018-08-18 04:11:00 98.6 F [facility] [place] Systolic (mm Hg) 2018-08-18 04:11:00 Levy [facility] [place] Diastolic (mm Hg) 2018-08-18 04:11:00 Mem [facility] [place] Respitory Rate 2018-08-18 04:11:00 [facility] [place] Heart Rate 2018-08-18 04:11:00 [facility] [place] Respitory Rate 2018-08-12 11:04:00 [facility] [place] Systolic (mm Hg) 2018-08-12 11:04:00 Levy [facility] [place] Diastolic (mm Hg) 2018-08-12 11:04:00 Mem [facility] [place] Respitory Rate 2018-08-12 09:30:00 [facility] [place] Systolic (mm Hg) 2018-08-12 09:30:00 Levy [facility] [place] Diastolic (mm Hg) 2018-08-12 09:30:00 Mem [facility] [place] Respitory Rate 2018-08-12 08:30:00 [facility] Systolic (mm Hg) 2018-08-12 08:30:00 Levy [facility] [place] Diastolic (mm Hg) 2018-08-12 08:30:00 Mem [facility] [place] Height 2018-08-12 05:35:00 175.26 cm [facility] [place] BMI Calculated 2018-08-12 05:35:00 [facility] [place] Weight 2018-08-12 05:35:00 [facility] Heart Rate 2018-08-12 05:35:00 [facility] [place] Temperature Oral (F) 2018-08-12 05:35:00 98.7 F [facility] [place] Temperature Oral (F) 2018-07-30 20:41:00 97.9 F [facility] [place] Heart Rate 2018-07-30 20:41:00 [facility] [place] Respitory Rate 2018-07-30 20:41:00 [facility] [place] Systolic (mm Hg) 2018-07-30 20:41:00 Elvy rial [place] Diastolic (mm Hg) 2018-07-30 20:41:00 Mem [facility] [place] Respitory Rate 2018-07-30 16:18:00 [facility] [place] Heart Rate 2018-07-30 16:18:00 [facility] [place] Temperature Oral (F) 2018-07-30 16:18:00 97.9 F [facility] [place] Systolic (mm Hg) 2018-07-30 16:18:00 Levy rial [place] Diastolic (mm Hg) 2018-07-30 16:18:00 Mem [facility] [place] Systolic (mm Hg) 2018-07-30 12:24:00 Levy rial [place] Diastolic (mm Hg) 2018-07-30 12:24:00 Mem [facility] [place] Respitory Rate 2018-07-30 12:24:00 [facility] Heart Rate 2018-07-30 12:24:00 [facility] [place] Temperature Oral (F) 2018-07-30 12:24:00 98.0 F [facility] Weight 2018-07-30 10:59:00 [facility] [place] BMI Calculated 2018-07-30 10:59:00 [facility] Height 2018-07-30 10:59:00 182.88 cm [facility] [place] BMI Calculated 2018-07-30 00:32:00 [facility] [place] Weight 2018-07-30 00:32:00 [facility] [place] Height 2018-07-30 00:32:00 182.88 cm [facility] Procedures Procedure Date / Time Performing Clinician Source Performed REPORT OF PROCEDURE - 2019-12-28 08:51:52 Provider, Default [facility] ENDOSCOPY SCAN Scanning [facility] CT ABDOMEN/PELVIS WITHOUT 2019-12-25 02:17:00 YandelRafaela shalom [facility] IV CONTRAST [facility] Center SCREEN, URINE 2019-12-25 00:41:00 YandelRafaela Cheri whiting [facility] URINALYSIS W/ MICROSCOPIC 2019-12-25 00:41:00 YandelRafaela shalom [facility] XR CHEST 1 VIEW 2019-12-24 23:55:00 YandleRafaelaMaribell [facility] ECG 12-LEAD 2019-12-24 23:11:19 Unknown, Hl7 Doctor [facility] BASIC METABOLIC PANEL (7) 2019-12-24 23:09:00 Rafaela Humphries [facility] HEPATIC FUNCTION PANEL 2019-12-24 23:09:00 Rafaela Humphries [facility] LIPASE 2019-12-24 23:09:00 Rafaela Humphries [facility] TROPONIN I 2019-12-24 23:09:00 Yandel Maribell [facility] CREATINE KINASE (CK) 2019-12-24 23:09:00 Rafaela Humphries [facility] CBC W/PLT COUNT & AUTO 2019-12-24 23:09:00 Rafaela HumphriesMaribell [facility] ED ECG INTERPRETATION 2019-12-24 23:05:27 Yandel Maribell [facility] Anesth Tubal Ligation [facility] Appendectomy [facility] Appendectomy [facility] section [facility] n ESWL - Extracorporeal [facility] shock wave lithotripsy of bile duct calculus Laparoscopic adjustable [facility] gastric banding<sup>1</sup> Partial resection of [facility] colon Plan of Care Planned Activity Planned Date Details Comments Source Future Scheduled 2019-11-21 INFLUENZA VACCINE (#1) [facility] Test 00:00:00 [code = INFLUENZA Medical Ce nter VACCINE (#1)] Future Scheduled 2001-02-[address] [facility] - Test 00:00[facility]00 [facility] cervix (procedure) [code = 242738682] Future Scheduled [address] [facility] - Test 00:00:00 (procedure) [code = Medical Center 02689201] Future Scheduled 1986-02-[address] [facility] - Test 00:00:00 0-64 YRS (1 of 1 - Medical C enter PPSV23) [code = PNEUMOCOCCAL VACCINE 0-64 YRS (1 of 1 - PPSV23)] Encounters Start End Encounter Admission Attending Care Care Encounter Source Date/Time Date/Time Type Type Clinicians Facility Department ID 2020-02-02 2020-02-02 Patient Rafaela Atkins [id number] 00:00:00 00:00:00 Outreach E Song [id number] [place] [id number] [id number] 2020-01-29 2020-01-29 Patient Rafaela Atkins [id number] 00:00:00 00:00:00 Outreach E Song [id number] [place] 4.2.7.2.686 [id number] 2020-01-22 2020-01-22 Patient Rafaela Atkins [id number] 00:00:00 00:00:00 Outreach E Song [id number] [place] 4.2.7.2.686 [id number] 2020-01-15 2020-01-15 Patient Rafaela Atkins [id number] 09:59:05 10:19:05 Outreach E Song 350.1.13.10 [place] 4.2.7.2.686 [id number] 2020-01-10 2020-01-10 Patient Eloina Rutledge [id number] 00:00:00 00:00:00 Outreach Jessica E Song 350.1.13.10 [place] 4.2.7.2.686 [id number] 2020-01-01 2020-01-01 Patient Eloina Rutledge [id number] 00:00:00 00:00:00 Outreach Jessica E Song 350.1.13.10 [place] 4.2.7.2.686 [id number] 2019-12-29 2019-12-29 Patient Rafaela Atkins 1.2.840.114 [id number] 00:00:00 00:00:00 Outreach E Song 350.1.13.10 [place] 4.2.7.2.686 [id number] 2019-12-26 2019-12-26 Emergency [facility] [id number] 00:52:00 03:07:00 Rosa Conrad 350.1.13.10 [place] 4.2.7.2.686 [place] [id number] 2019-12-22 2019-12-22 Patient Rafaela Atkins 1.2.840.114 [id number] 00:00:00 00:00:00 Outreach E Duncan 350.1.13.10 [place] 4.2.7.2.686 [id number] 2019-12-21 2019-12-21 Transition Eloina Trores 1.2.840.114 [id number] 00:00:00 00:00:00 of Care Marilyn Song 350.1.13.10 [place] 4.2.7.2.686 [id number] 2019-04-25 2019-04-25 Aleksandar MEDINA [place] - [id number] atamabler 00:00:00 00:00:00 Discovery jewell Barnard MD: [address] [facility] - [address], [place] [address] , Ph. 2018-08-22 2018-08-25 Outpatient Tushar [facility] [id number] 16:01:14 22:07:00 Cherie 2018-08-22 2018-08-22 Outpatient E [facility] MED [id number] MHNE 22:10:00 22:10:00 2018-08-17 2018-08-18 Outpatient Nick [facility] [id number] 22:46:47 04:39:00 Liping 2018-08-17 2018-08-17 Emergency E [facility]NE MHNE [id number] MHNE 22:46:00 22:46:00 2018-08-12 2018-08-12 Outpatient Nick [facility] [id number] 00:29:03 06:21:00 Liping 2018-08-12 2018-08-12 Emergency E MHNE MHNE [id number] MHNE 00:29:00 00:29:00 2018-07-29 2018-07-30 Outpatient FANY Saavedra [id number] 19:27:04 16:24:00 Beck 2018-07-29 2018-07-29 Outpatient E [facility] MED [id number] MHTW 23:06:00 23:06:00 Results Test Test Test Comments Results Result Source Description Time Comments CT, ABDOMEN 2019-12- Reason for FINAL REPORT PATIENT ID: 05 exam:->ABDOMIN [id number] TECHNIQUE: CT 02:38:00 AL PAINReason of the abdomen and pelvis for WITHOUT intravenous exam:->DIARRHE contrast and WITH oral AReason for contrast. Dose exam:->CHEST modulation, iterative PAINIs the reconstruction, and/or patient weight-based adjustment ?->NoW of the mA/kV was utilized hat is the to reduce the radiation patient's dose to as low as sedation reasonably achievable. requirement?-> INDICATION: Abdominal No Sedation pain, acute, nonlocalizedABDOMINAL PAINDIARRHEACHEST PAIN. COMPARISON: 10/02/2016. FINDINGS: ABSENCE OF INTRAVENOUS CONTRAST DECREASES SENSITIVITY FOR DETECTION OF FOCAL LESIONS AND VASCULAR PATHOLOGY. LOWER THORAX: Unremarkable. HEPATOBILIARY: No focal hepatic lesions. Gallbladder is unremarkable. No biliary ductal dilatation.SPLEEN: No splenomegaly.PANCREAS: No focal masses or ductal dilatation. ADRENALS: No adrenal nodules.KIDNEYS/URETERS: No hydronephrosis, stones, or exophytic masses.PELVIC ORGANS/BLADDER: Bladder is collapsed. Uterus is unremarkable. No adnexal mass. PERITONEUM/RETROPERITONEU M: No free air or fluid.LYMPH NODES: No lymphadenopathy.VESSELS: Unremarkable. GI TRACT: Gastric band is in place without evidence of slippage. There are foci of gas along the gastric wall subjacent to the gastric band. No bowel wall thickening or distention. Normal appendix. BONES AND SOFT TISSUES: No acute osseous abnormality or significant soft tissue finding. IMPRESSION:1. No obstructive uropathy or nephrolithiasis. 2. Foci of air interpositioned between the margins of the gastric lap band and gastric wall questionable for mucosal erosion. If clinically warranted, consider further evaluation with endoscopy on an urgent but nonemergent basis. Signed: Ciara Monsivais MDReport Verified Date/Time: 12/25/2019 02:38:32 abdomen 2019-12- Interface, External Ris [facility] pelvis without 05 In - 12/25/2019 2:40 [facility] - contrast 02:38:00 CDTFINAL REPORT PATIENT M edical ID: [id number] TECHNIQUE: Center CT of the abdomen and pelvis WITHOUT intravenous contrast and WITH oral contrast. Dose modulation, iterative reconstruction, and/or weight-based adjustment of the mA/kV was utilized to reduce the radiation dose to as low as reasonably achievable. INDICATION: Abdominal pain, acute, nonlocalizedABDOMINAL PAINDIARRHEACHEST PAIN. COMPARISON: 10/02/2016. FINDINGS: ABSENCE OF INTRAVENOUS CONTRAST DECREASES SENSITIVITY FOR DETECTION OF FOCAL LESIONS AND VASCULAR PATHOLOGY. LOWER THORAX: Unremarkable. HEPATOBILIARY: No focal hepatic lesions. Gallbladder is unremarkable. No biliary ductal dilatation.SPLEEN: No splenomegaly.PANCREAS: No focal masses or ductal dilatation. ADRENALS: No adrenal nodules.KIDNEYS/URETERS: No hydronephrosis, stones, or exophytic masses.PELVIC ORGANS/BLADDER: Bladder is collapsed. Uterus is unremarkable. No adnexal mass. PERITONEUM/RETROPERITONEU M: No free air or fluid.LYMPH NODES: No lymphadenopathy.VESSELS: Unremarkable. GI TRACT: Gastric band is in place without evidence of slippage. There are foci of gas along the gastric wall subjacent to the gastric band. No bowel wall thickening or distention. Normal appendix. BONES AND SOFT TISSUES: No acute osseous abnormality or significant soft tissue finding. IMPRESSION:1. No obstructive uropathy or nephrolithiasis. 2. Foci of air interpositioned between the margins of the gastric lap band and gastric wall questionable for mucosal erosion. If clinically warranted, consider further evaluation with endoscopy on an urgent but nonemergent basis. Signed: Ciara Monsivais [facility] Verified Date/Time: 12/25/2019 02:38:32 Urinalysis w/Microscopic 2019-12-25 01:44:00 Test Item Value Reference Range Interpretation Comme nts Color, UA (test code = 5778-6) Yellow Clarity, UA (test code = 5767-9) Clear Specific [place], UA (test code = 5811-5) >=1.030 1.001-1.035 pH, UA (test code = 5803-2) 6.0 5.0-8.0 Protein, UA (test code = 91348-6) 100 mg/dL Negative A Glucose, UA (test code = 365) Negative Negative Ketones, UA (test code = 2514-8) Negative Negative Bilirubin, UA (test code = 41875-2) Negative Negative Blood, UA (test code = 73762-1) Moderate Negative A Nitrite, UA (test code = 5802-4) Negative Negative Leukocytes, UA (test code = 5799-2) Negative Negative Urobilinogen, UA (test code = 20482-2) 0.2 mg/dL 0.2-1 Bacteria, UA (test code = 81755-1) Few Ca Oxalate Liat, UA (test code = 39773-5) Moderate RBC, UA (test code = 799-7) 20-50 /HPF WBC, UA (test code = 77068-9) <5 /HPF SQUAMOUS EPITHELIAL (test code = 26940-8) 50-100 /HPF Specimen Source (test code = 2795) Lab Interpretation (test code = 45082-1) [facility] [id number] 01:44:00 Test Item Value Reference Range Interpretation Comments COLOR (BEAKER) (test code = 470) Yellow CLARITY (BEAKER) (test code = Clear 469) SPECIFIC GRAVITY UA (BEAKER) >= 1.001-1.035 (test code = 468) PH UA (BEAKER) (test code = 467) 6.0 5.0-8.0 PROTEIN UA (BEAKER) (test code = 100 mg/dL Negative A 464) GLUCOSE UA (BEAKER) (test code = Negative Negative 365) KETONES UA (BEAKER) (test code = Negative Negative 371) BILIRUBIN UA (BEAKER) (test code Negative Negative = 462) BLOOD UA (BEAKER) (test code = Moderate Negative A 461) NITRITE UA (BEAKER) (test code = Negative Negative 465) LEUKOCYTE ESTERASE UA (BEAKER) Negative Negative (test code = 466) UROBILINOGEN UA (BEAKER) (test 0.2 mg/dL 0.2-1.0 code = 463) BACTERIA (BEAKER) (test code = Few 517) CALCIUM OXALATE CRYSTALS (BEAKER) Moderate (test code = 518) RBC UA-MANUAL (BEAKER) (test code 20-50 /HPF = 1659) WBC UA-MANUAL (BEAKER) (test code <5 /HPF = 1661) SQUAMOUS EPITHELIAL MANUAL 50-100 /HPF (BEAKER) (test code = 1663) SOURCE(BEAKER) (test code = 2795) screen, [id number] 01:31:00 Test Item Value Reference Range Interpretation Comments Preg Test, Ur (test code = 2112-1) Negative [facility] [id number] 01:31:00 Test Item Value Reference Range Interpretation Comments TEST URINE (BEAKER) (test Negative code = 583) RAD, CHEST, 1 VIEW, NON [id number] 00:14:00Reason for exam:->chest painReason for exam:->DIARRHEAReason for exam:->CHEST PAINIs the patient ?->Unknownupt pendingShould this be performed at the bedside?->Yes FINAL REPORT Chest, 1 view. History: Chest pain and diarrhea. Comparison: None available. Impression:Examination limited by low lung volumes, overlying soft tissue and underpenetration. Cardiomediastinal silhouette is enlarged, possibly exaggerated by technique. Prominence of the central pulmonary vasculature is concerning for pulmonary vascular congestion. Hazy airspace opacities likely related to technique however difficult to exclude superimposed atypical infection. No lobar consolidation or large pleural effusion. The costophrenic angles are not included on this study. No pneumothorax. Osseous structures are grossly unremarkable. Signed: Frida Jaimes [facility] Verified Date/Time: 12/25/2019 00:14:07 XR chest 1 view portable / [id number] 00:14:00Interface, External Ris In - 12/25/2019 12:16 AM CDTFINAL REPORT Chest, 1 view. History: Chest pain and diarrhea. Comparison: None available. Impression:Examination limited by low lung volumes, overlying soft tissue and underpenetration. Cardiomediastinal silhouette is enlarged, possibly exaggerated by technique. Prominence of the central pulmonary vasculature is concerning for pulmonary vascular congestion. Hazy airspace opacities likely related to technique however difficult to exclude superimposed atypical infection. No lobar consolidation or large pleural effusion. The costophrenic angles are not included on this study. No pneumothorax. Osseous structures are grossly unremarkable. Signed: Frida Jaimes Verified Date/Time: 12/25/2019 00:14:07 [facility] I (not available at [facility])2019-12-24 23:42:00 Test Item Value Reference Range Interpretation Comments Troponin I (test code = <0.03 0-0.15 33564-2) LAKESHIA (test code = LAKESHIA) Troponin I (TnI) levels must be interpreted in the context of the presenting symptoms and the clinical findings. Elevated TnI levels indicate myocardial damage, but are not specific for ischemic heart disease. Elevated TnI levels are seen in patients with other cardiac conditions (including myocarditis and congestive heart failure), and slight TnI elevations occur in patients with other conditions, including sepsis, renal failure, acidosis, acute neurological disease, and persistent tachyarrhythmia.Opera tor ID - ADMIN Lab Interpretation (test Normal code = 54257-6) [facility] [id number] 23:42:00 Test Item Value Reference Range Interpretation Comments TROPONIN I (BEAKER) (test code = 397) < ng/mL 0.00-0.15 Troponin I (TnI) levels must be interpreted in the context of the presenting symptoms and the clinical findings. Elevated TnI levels indicate myocardial damage, but are not specific for ischemic heart disease. Elevated TnI levels are seen in patients with other cardiac conditions (including myocarditis and congestive heart failure), and slight TnI elevations occur in patients with other conditions, including sepsis, renal failure, acidosis, acute neurological disease, and persistent tachyarrhythmia.Drive In Theater Attendant ID - ADMINLiver [id number] 23:36:00 Test Item Value Reference Range Interpretation Comments Protein, Total (test code 6.8 6.0- 8.5 gm/dL = 2885-2) Albumin (test code = 3.5 g/dL 3.5-5 82862-6) Total Bilirubin (test code <0.2 0.1-1.2 = 1975-2) Bilirubin, Direct (test 0.1 mg/dL 0-0.4 code = 1968-7) Alkaline Phosphatase (test 108 U/L 30-115 code = 6768-6) AST (test code = 1920-8) 17 U/L 5-40 ALT (test code = 1742-6) 20 U/L 5-50 LAKESHIA (test code = LAKESHIA) [employer] In Theater Attendant ID - ADMIN Lab Interpretation (test Normal code = 02848-5) [facility]2019-12-24 23:36:00 Test Item Value Reference Range Interpretation Comments Total CK (test code = 38 U/L 25-235 2157-6) LAKESHIA (test code = LAKESHIA) [employer] Attendant ID - ADMIN Lab Interpretation (test Normal code = 30807-5) [facility]2020-10-04 23:36:00 Test Item Value Reference Range Interpretation Comments Lipase (test code = 30 U/L 651 3040-3) LAKESHIA (test code = LAKESHIA) [employer] In Theater Attendant ID - ADMIN Lab Interpretation (test Normal code = 57860-0) [facility] [id number] 23:36:00 Test Item Value Reference Range Interpretation Comments TOTAL PROTEIN (BEAKER) (test code = 6.8 gm/dL 6.0-8.5 770) ALBUMIN (BEAKER) (test code = 1145) 3.5 g/dL 3.5-5.0 BILIRUBIN TOTAL (BEAKER) (test code < mg/dL 0.1-1.2 = 377) BILIRUBIN DIRECT (BEAKER) (test 0.1 mg/dL 0.0-0.4 code = 706) ALKALINE PHOSPHATASE (BEAKER) (test 108 U/L 30-115 code = 346) AST (SGOT) (BEAKER) (test code = 17 U/L 5-40 353) ALT (SGPT) (BEAKER) (test code = 20 U/L 5-50 347) Drive In Theater Attendant ID - [id number] 23:36:00 Test Item Value Reference Range Interpretation Comments LIPASE (BEAKER) (test code = 749) 30 U/L 6-51 [employer] In Theater Attendant ID - ADMINCREATINE KINASE (CK)2019-12-24 23:36:00 Test Item Value Reference Range Interpretation Comments CREATINE KINASE TOTAL (BEAKER) (test 38 U/L 25-235 code = 380) Drive In Theater Attendant ID - ADMINBasic metabolic panel (Na, K+, Cl, CO2, Glu, Ca, BUN, Cr) 2019-12-24 23:34:00 Test Item Value Reference Range Interpretation Comments Sodium (test code = 141 meq/L 741-740 8965-2) Potassium (test code = 3.9 meq/L 3.6-5.5 2823-3) Chloride (test code = 106 meq/L 98-106 2075-0) CO2 (test code = 26 meq/L 20-29 2028-9) BUN (test code = 8 mg/dL 10-26 L 3094-0) Creatinine (test code 0.75 mg/dL 0.5-1.2 = 2160-0) Glucose (test code = 127 mg/dL 70-110 H 2345-7) Calcium (test code = 8.8 mg/dL 8.5-10.5 25899-0) EGFR (test code = 86 mL/min/1.73 [place] [address]-9) NOT ACCURATE CREATININE CLEARANCE IN PREDICTING GLOMERULAR FILTRATION RATE . ESTIMATED GFR I S NOT APPLICABLE FOR DIALYSIS PATIENTS. LAKESHIA (test code = LAKESHIA) Drive In Theater Attendant ID - ADMIN Lab Interpretation Abnormal (test code = 27239-3) [facility] METABOLIC [id number] 23:34:00 Test Item Value Reference Range Interpretation Comments SODIUM (BEAKER) 141 meq/L 135-148 (test code = 381) POTASSIUM (BEAKER) 3.9 meq/L 3.6-5.5 (test code = 379) CHLORIDE (BEAKER) 106 meq/L 98-106 (test code = 382) CO2 (BEAKER) (test 26 meq/L - code = 355) BLOOD UREA NITROGEN 8 mg/dL 10-26 L (BEAKER) (test code = 354) CREATININE (BEAKER) 0.75 mg/dL 0.50-1.20 (test code = 358) GLUCOSE RANDOM 127 mg/dL 70-110 H (BEAKER) (test code = 652) CALCIUM (BEAKER) 8.8 mg/dL 8.5-10.5 (test code = 697) EGFR (BEAKER) (test 86 mL/min/1.73 ESTIMA SHANTI GFR IS code = 1092) sq m NOT ACCURATE CREATININE CLEARANCE IN PREDICTING GLOMERULAR FILTRATION RATE . ESTIMATED GFR I S NOT APPLICABLE FOR DIALYSIS PATIEN TS. [employer] ID - ADMINCBC with platelet count + automated [id number] 23:15:00 Test Item Value Reference Range Interpretation Comments WBC (test code = 6690-2) 5.4 4.0- 10.0 K/L RBC (test code = 789-8) 4.06 4.00- 5.00 M/L MCHC (test code = 786-4) 31.9 32.0- 36.0 GM/DL L Hematocrit (test code = 4544-3) 36.1 % 36-46 MCV (test code = 787-2) 88.9 fL 82-99 MCH (test code = 785-6) 28.3 pg 27-33 RDW (test code = 788-0) 14.1 % 12-15 Platelets (test code = 777-3) 221 150- 430 K/CU MM MPV (test code = 73697-6) 9.5 fL 6-11.5 nRBC (test code = 413) 0 0- 0 /100 WBC % Neutros (test code = 429) 58 % % Lymphs (test code = 430) 31 % % Monos (test code = 431) 6 % % Eos (test code = 432) 4 % % Baso (test code = 437) 1 % # Neutros (test code = 670) 3.13 1.80- 8.00 K/L # Lymphs (test code = 414) 1.67 1.48- 4.50 K/L # Monos (test code = 415) 0.34 0.00- 1.30 K/L # Eos (test code = 416) 0.20 0.00- 0.50 K/L # Baso (test code = 417) 0.03 0.00- 0.20 K/L Immature Granulocytes-Relative 0 % 0-0 (test code = 2801) Lab Interpretation (test code = Abnormal 86967-6) [facility] [id number] 23:15:00 Test Item Value Reference Range Interpretation Comments WHITE BLOOD CELL COUNT (BEAKER) 5.4 K/ L 4.0-10.0 (test code = 775) RED BLOOD CELL COUNT (BEAKER) 4.06 M/ L 4.00-5.00 (test code = 761) HEMOGLOBIN (BEAKER) (test code = 11.5 GM/DL 12.0-15.5 L 410) HEMATOCRIT (BEAKER) (test code = 36.1 % 36.0-46.0 411) MEAN CORPUSCULAR VOLUME (BEAKER) 88.9 fL 82.0-99.0 (test code = 753) MEAN CORPUSCULAR HEMOGLOBIN 28.3 pg 27.0-33.0 (BEAKER) (test code = 751) MEAN CORPUSCULAR HEMOGLOBIN CONC 31.9 GM/DL 32.0-36.0 L (BEAKER) (test code = 752) RED CELL DISTRIBUTION WIDTH 14.1 % 12.0-15.0 (BEAKER) (test code = 412) PLATELET COUNT (BEAKER) (test 221 K/CU MM 150-430 code = 756) MEAN PLATELET VOLUME (BEAKER) 9.5 fL 6.0-11.5 (test code = 754) NUCLEATED RED BLOOD CELLS 0 /100 WBC 0-0 (BEAKER) (test code = 413) NEUTROPHILS RELATIVE PERCENT 58 % (BEAKER) (test code = 429) LYMPHOCYTES RELATIVE PERCENT 31 % (BEAKER) (test code = 430) MONOCYTES RELATIVE PERCENT 6 % (BEAKER) (test code = 431) EOSINOPHILS RELATIVE PERCENT 4 % (BEAKER) (test code = 432) BASOPHILS RELATIVE PERCENT 1 % (BEAKER) (test code = 437) NEUTROPHILS ABSOLUTE COUNT 3.13 K/ L 1.80-8.00 (BEAKER) (test code = 670) LYMPHOCYTES ABSOLUTE COUNT 1.67 K/ L 1.48-4.50 (BEAKER) (test code = 414) MONOCYTES ABSOLUTE COUNT (BEAKER) 0.34 K/ L 0.00-1.30 (test code = 415) EOSINOPHILS ABSOLUTE COUNT 0.20 K/ L 0.00-0.50 (BEAKER) (test code = 416) BASOPHILS ABSOLUTE COUNT (BEAKER) 0.03 K/ L 0.00-0.20 (test code = 417) IMMATURE GRANULOCYTES-RELATIVE 0 % 0-0 PERCENT (BEAKER) (test code = 2801) ECG/EKG [id number] 23:05:27Rafaela Humphries MD 12/25/2019 3:03 AMECG/EKG InterpretationDate/Time: 12/24/2019 11:14 PMPerformed by: Rafaela Humphries MDAuthorized by: Rafaela Humphries MD The ECG was interpreted by ED physician. This ECG was not compared with previous ECG(s).The ECG is interpreted as sinus rhythm. Rate is normal rate. Heart rate is 78 BPM.ST segments normal. T waves normal. Clinical Impression: normal ECGECG reviewed and does not meet STEMI criteria.[facility] W/AUTO DIFF 2018-10-03 11:13:00 Test Item Value Reference Range Interpretation Comments WHITE BLOOD CELL (test code = 4.0 K/MM3 3.8-9.8 N WBC) RED BLOOD CELL (test code = 4.15 M/MM3 3.58-4.97 N RBC) HEMOGLOBIN (test code = HGB) 10.2 G/DL 11.2-14.9 L HEMATOCRIT (test code = HCT) 33.1 % 33.2-43.5 L MEAN CELL VOLUME (test code = 80 fL 80.7-99.1 L MCV) MEAN CELL HGB (test code = MCH) 24.6 pg 27.0-34.1 L MEAN CELL HGB CONCETRATION 30.8 % 32.2-35.7 L (test code = MCHC) RED CELL DISTRIBUTION WIDTH 23.9 % 12.1-15.2 H (test code = RDW) PLATELET COUNT (test code = 219 K/MM3 129-368 N PLT) MEAN PLATELET VOLUME (test code 10.1 fl 7.4-10.4 N = MPV) NEUTROPHIL % (test code = NT%) 41.1 % 43-75 L IMMATURE GRANULOCYTE % (test 0.2 % 0.0-2.0 N code = IG%) LYMPHOCYTE % (test code = LY%) 40.8 % 14-44 N MONOCYTE % (test code = MO%) 8.2 % 4-13 N EOSINOPHIL % (test code = EO%) 9.0 % 0-6 H BASOPHIL % (test code = BA%) 0.7 % 0-2 N NUCLEATED RBC % (test code = 0.0 % 0-1.0 N NRBC%) NEUTROPHIL # (test code = NT#) 1.65 K/mm3 2.0-7.6 L IMMATURE GRANULOCYTE # (test 0.01 x10 3/uL 0-0.03 N code = IG#) LYMPHOCYTE # (test code = LY#) 1.64 K/mm3 1.0-3.8 N MONOCYTE # (test code = MO#) 0.33 K/mm3 0.1-0.8 N EOSINOPHIL # (test code = EO#) 0.36 K/mm3 0.0-0.2 H BASOPHIL # (test code = BA#) 0.03 K/mm3 0.0-0.2 N NUCLEATED RBC # (test code = 0.00 K/mm3 0.0-0.1 N NRBC#) DIFFERENTIAL [id number] 11:13:00 Test Item Value Reference Range Interpretation Comments RBC MORPHOLOGY REQUIRED (test code = ABNORMAL RBCM) ANISOCYTOSIS (test code = ANISO) MODERATE NONE PLATELET ESTIMATE (test code = ADEQUATE ADEQUATE PLTEST) PLATELET MORPHOLOGY (test code = NORMAL NORMAL PLTMORPH) BASIC METABOLIC [id number] 07:25:00 Test Item Value Reference Range Interpretation Comments SODIUM (test code = 141 MMOL/L 137-145 N NA) POTASSIUM (test code = 3.9 MMOL/L 3.5-5.1 N K) CHLORIDE (test code = 104 MMOL/L 98-107 N CL) CARBON DIOXIDE (test 30 MMOL/L 22-30 N code = CO2) ANION GAP (test code = 11 MMOL/L 14-24 L GAP) GLUCOSE (test code = 102 MG/DL 74-106 GLU) BLOOD UREA NITROGEN 15 MG/DL 7-17 N (test code = BUN) GLOMERULAR FILTRATION > 60 Report ing units: RATE (test code = GFR) ml/mi n/1.73 m2 (Modified MDRD Formula)Referen ce Range: > or = 6 0 ml/min/1.73 m2 CREATININE (test code 0.70 MG/DL 0.52-1.04 N = CREAT) CALCIUM (test code = 9.2 MG/DL 8.4-10.2 N CA) CBC W/AUTO [id number] 06:25:00 Test Item Value Reference Range Interpretation Comments WHITE BLOOD CELL (test code = 4.0 K/MM3 3.8-9.8 N WBC) RED BLOOD CELL (test code = 4.15 M/MM3 3.58-4.97 N RBC) HEMOGLOBIN (test code = HGB) 10.2 G/DL 11.2-14.9 L HEMATOCRIT (test code = HCT) 33.1 % 33.2-43.5 L MEAN CELL VOLUME (test code = 80 fL 80.7-99.1 L MCV) MEAN CELL HGB (test code = MCH) 24.6 pg 27.0-34.1 L MEAN CELL HGB CONCETRATION 30.8 % 32.2-35.7 L (test code = MCHC) RED CELL DISTRIBUTION WIDTH 23.9 % 12.1-15.2 H (test code = RDW) PLATELET COUNT (test code = 219 K/MM3 129-368 N PLT) MEAN PLATELET VOLUME (test code 10.1 fl 7.4-10.4 N = MPV) NEUTROPHIL % (test code = NT%) 41.1 % 43-75 L IMMATURE GRANULOCYTE % (test 0.2 % 0.0-2.0 N code = IG%) LYMPHOCYTE % (test code = LY%) 40.8 % 14-44 N MONOCYTE % (test code = MO%) 8.2 % 4-13 N EOSINOPHIL % (test code = EO%) 9.0 % 0-6 H BASOPHIL % (test code = BA%) 0.7 % 0-2 N NUCLEATED RBC % (test code = 0.0 % 0-1.0 N NRBC%) NEUTROPHIL # (test code = NT#) 1.65 K/mm3 2.0-7.6 L IMMATURE GRANULOCYTE # (test 0.01 x10 3/uL 0-0.03 N code = IG#) LYMPHOCYTE # (test code = LY#) 1.64 K/mm3 1.0-3.8 N MONOCYTE # (test code = MO#) 0.33 K/mm3 0.1-0.8 N EOSINOPHIL # (test code = EO#) 0.36 K/mm3 0.0-0.2 H BASOPHIL # (test code = BA#) 0.03 K/mm3 0.0-0.2 N NUCLEATED RBC # (test code = 0.00 K/mm3 0.0-0.1 N NRBC#) DIFFERENTIAL [id number] 06:25:00 Test Item Value Reference Range Interpretation Comments RBC MORPHOLOGY REQUIRED (test code = RBCM) PLATELET ESTIMATE (test code = PLTEST) ADEQUATE PLATELET MORPHOLOGY (test code = NORMAL PLTMORPH) CBC W/AUTO [id number] 06:25:00 Test Item Value Reference Range Interpretation Comments WHITE BLOOD CELL (test code = 4.0 K/MM3 3.8-9.8 N WBC) RED BLOOD CELL (test code = 4.15 M/MM3 3.58-4.97 N RBC) HEMOGLOBIN (test code = HGB) 10.2 G/DL 11.2-14.9 L HEMATOCRIT (test code = HCT) 33.1 % 33.2-43.5 L MEAN CELL VOLUME (test code = 80 fL 80.7-99.1 L MCV) MEAN CELL HGB (test code = MCH) 24.6 pg 27.0-34.1 L MEAN CELL HGB CONCETRATION 30.8 % 32.2-35.7 L (test code = MCHC) RED CELL DISTRIBUTION WIDTH 23.9 % 12.1-15.2 H (test code = RDW) PLATELET COUNT (test code = 219 K/MM3 129-368 N PLT) MEAN PLATELET VOLUME (test code 10.1 fl 7.4-10.4 N = MPV) NEUTROPHIL % (test code = NT%) 41.1 % 43-75 L IMMATURE GRANULOCYTE % (test 0.2 % 0.0-2.0 N code = IG%) LYMPHOCYTE % (test code = LY%) 40.8 % 14-44 N MONOCYTE % (test code = MO%) 8.2 % 4-13 N EOSINOPHIL % (test code = EO%) 9.0 % 0-6 H BASOPHIL % (test code = BA%) 0.7 % 0-2 N NUCLEATED RBC % (test code = 0.0 % 0-1.0 N NRBC%) NEUTROPHIL # (test code = NT#) 1.65 K/mm3 2.0-7.6 L IMMATURE GRANULOCYTE # (test 0.01 x10 3/uL 0-0.03 N code = IG#) LYMPHOCYTE # (test code = LY#) 1.64 K/mm3 1.0-3.8 N MONOCYTE # (test code = MO#) 0.33 K/mm3 0.1-0.8 N EOSINOPHIL # (test code = EO#) 0.36 K/mm3 0.0-0.2 H BASOPHIL # (test code = BA#) 0.03 K/mm3 0.0-0.2 N NUCLEATED RBC # (test code = 0.00 K/mm3 0.0-0.1 N NRBC#) DIFFERENTIAL [id number] 06:25:00 Test Item Value Reference Range Interpretation Comments RBC MORPHOLOGY REQUIRED (test code = RBCM) PLATELET ESTIMATE (test code = PLTEST) ADEQUATE PLATELET MORPHOLOGY (test code = NORMAL PLTMORPH) CBC W/O [id number] 11:11:00 Test Item Value Reference Range Interpretation Comments WHITE BLOOD CELL (test code = 4.0 K/MM3 3.8-9.8 N WBC) RED BLOOD CELL (test code = 4.09 M/MM3 3.58-4.97 N RBC) HEMOGLOBIN (test code = HGB) 9.9 G/DL 11.2-14.9 L HEMATOCRIT (test code = HCT) 33.8 % 33.2-43.5 N MEAN CELL VOLUME (test code = 83 fL 80.7-99.1 N MCV) MEAN CELL HGB (test code = MCH) 24.2 pg 27.0-34.1 L MEAN CELL HGB CONCETRATION 29.3 % 32.2-35.7 L (test code = MCHC) RED CELL DISTRIBUTION WIDTH 23.9 % 12.1-15.2 H (test code = RDW) PLATELET COUNT (test code = 192 K/MM3 129-368 N PLT) NEUTROPHIL # (test code = NT#) 1.92 K/mm3 2.0-7.6 L IMMATURE GRANULOCYTE # (test 0.01 x10 3/uL 0-0.03 N code = IG#) LYMPHOCYTE # (test code = LY#) 1.31 K/mm3 1.0-3.8 N MONOCYTE # (test code = MO#) 0.34 K/mm3 0.1-0.8 N EOSINOPHIL # (test code = EO#) 0.40 K/mm3 0.0-0.2 H BASOPHIL # (test code = BA#) 0.02 K/mm3 0.0-0.2 N NUCLEATED RBC # (test code = 0.00 K/mm3 0.0-0.1 N NRBC#) DIFFERENTIAL [id number] 11:11:00 Test Item Value Reference Range Interpretation Comments RBC MORPHOLOGY REQUIRED (test code = ABNORMAL RBCM) ANISOCYTOSIS (test code = ANISO) SLIGHT NONE MICROCYTOSIS (test code = MICR) FEW NONE ELLIPTOCYTES (test code = ELL) FEW NONE OVALOCYTES (test code = OVAL) FEW NONE PLATELET ESTIMATE (test code = ADEQUATE ADEQUATE PLTEST) PLATELET MORPHOLOGY (test code = NORMAL NORMAL PLTMORPH) WBC [id number] 11:11:00 Test Item Value Reference Range Interpretation Comments TOTAL CELLS COUNTED (test code = 130 #CELLS TCC) SEGMENTED NEUTROPHILS (test code = 56.6 % 36.2-73.8 N SEG) BAND NEUTROPHIL (test code = BAND) 0.8 % 0-10 N LYMPHOCYTE (test code = LYMPH) 24.6 % 12.9-45.1 N ATYPICAL LYMPH (test code = 1.6 % 0-0 H ALYMPH) MONOCYTE (test code = MON) 8.2 % 0-11 N EOSINOPHIL (test code = EOS) 8.2 % 1-7 H BASIC METABOLIC [id number] 10:21:00 Test Item Value Reference Range Interpretation Comments SODIUM (test code = 138 MMOL/L 137-145 N NA) POTASSIUM (test code = 4.1 MMOL/L 3.5-5.1 N K) CHLORIDE (test code = 104 MMOL/L 98-107 N CL) CARBON DIOXIDE (test 26 MMOL/L 22-30 N code = CO2) ANION GAP (test code = 12 MMOL/L 14-24 L GAP) GLUCOSE (test code = 188 MG/DL 74-106 H GLU) BLOOD UREA NITROGEN 19 MG/DL 7-17 H (test code = BUN) GLOMERULAR FILTRATION > 60 Report ing units: RATE (test code = GFR) ml/mi n/1.73 m2 (Modified MDRD Formula)Referen ce Range: > or = 6 0 ml/min/1.73 m2 CREATININE (test code 0.70 MG/DL 0.52-1.04 N = CREAT) CALCIUM (test code = 9.2 MG/DL 8.4-10.2 N CA) CBC W/O [id number] 10:03:00 Test Item Value Reference Range Interpretation Comments WHITE BLOOD CELL (test code = 4.0 K/MM3 3.8-9.8 N WBC) RED BLOOD CELL (test code = 4.09 M/MM3 3.58-4.97 N RBC) HEMOGLOBIN (test code = HGB) 9.9 G/DL 11.2-14.9 L HEMATOCRIT (test code = HCT) 33.8 % 33.2-43.5 N MEAN CELL VOLUME (test code = 83 fL 80.7-99.1 N MCV) MEAN CELL HGB (test code = MCH) 24.2 pg 27.0-34.1 L MEAN CELL HGB CONCETRATION 29.3 % 32.2-35.7 L (test code = MCHC) RED CELL DISTRIBUTION WIDTH 23.9 % 12.1-15.2 H (test code = RDW) PLATELET COUNT (test code = 192 K/MM3 129-368 N PLT) NEUTROPHIL # (test code = NT#) 1.92 K/mm3 2.0-7.6 L IMMATURE GRANULOCYTE # (test 0.01 x10 3/uL 0-0.03 N code = IG#) LYMPHOCYTE # (test code = LY#) 1.31 K/mm3 1.0-3.8 N MONOCYTE # (test code = MO#) 0.34 K/mm3 0.1-0.8 N EOSINOPHIL # (test code = EO#) 0.40 K/mm3 0.0-0.2 H BASOPHIL # (test code = BA#) 0.02 K/mm3 0.0-0.2 N NUCLEATED RBC # (test code = 0.00 K/mm3 0.0-0.1 N NRBC#) DIFFERENTIAL [id number] 10:03:00 Test Item Value Reference Range Interpretation Comments RBC MORPHOLOGY REQUIRED (test code = RBCM) PLATELET ESTIMATE (test code = PLTEST) ADEQUATE PLATELET MORPHOLOGY (test code = NORMAL PLTMORPH) WBC [id number] 10:03:00 Test Item Value Reference Range Interpretation Comments TOTAL CELLS COUNTED (test code = TCC) #CELLS SEGMENTED NEUTROPHILS (test code = % 36.2-73.8 SEG) LYMPHOCYTE (test code = LYMPH) % 12.9-45.1 MONOCYTE (test code = MON) % 0-11 CBC W/AUTO [id number] 10:03:00 Test Item Value Reference Range Interpretation Comments WHITE BLOOD CELL (test code = 4.0 K/MM3 3.8-9.8 N WBC) RED BLOOD CELL (test code = 4.09 M/MM3 3.58-4.97 N RBC) HEMOGLOBIN (test code = HGB) 9.9 G/DL 11.2-14.9 L HEMATOCRIT (test code = HCT) 33.8 % 33.2-43.5 N MEAN CELL VOLUME (test code = 83 fL 80.7-99.1 N MCV) MEAN CELL HGB (test code = MCH) 24.2 pg 27.0-34.1 L MEAN CELL HGB CONCETRATION 29.3 % 32.2-35.7 L (test code = MCHC) RED CELL DISTRIBUTION WIDTH 23.9 % 12.1-15.2 H (test code = RDW) PLATELET COUNT (test code = 192 K/MM3 129-368 N PLT) MEAN PLATELET VOLUME (test code 9.8 fl 7.4-10.4 N = MPV) NEUTROPHIL % (test code = NT%) 47.9 % 43-75 N IMMATURE GRANULOCYTE % (test 0.3 % 0.0-2.0 N code = IG%) LYMPHOCYTE % (test code = LY%) 32.8 % 14-44 N MONOCYTE % (test code = MO%) 8.5 % 4-13 N EOSINOPHIL % (test code = EO%) 10.0 % 0-6 H BASOPHIL % (test code = BA%) 0.5 % 0-2 N NUCLEATED RBC % (test code = 0.0 % 0-1.0 N NRBC%) NEUTROPHIL # (test code = NT#) 1.92 K/mm3 2.0-7.6 L IMMATURE GRANULOCYTE # (test 0.01 x10 3/uL 0-0.03 N code = IG#) LYMPHOCYTE # (test code = LY#) 1.31 K/mm3 1.0-3.8 N MONOCYTE # (test code = MO#) 0.34 K/mm3 0.1-0.8 N EOSINOPHIL # (test code = EO#) 0.40 K/mm3 0.0-0.2 H BASOPHIL # (test code = BA#) 0.02 K/mm3 0.0-0.2 N NUCLEATED RBC # (test code = 0.00 K/mm3 0.0-0.1 N NRBC#) WBC [id number] 10:03:00 Test Item Value Reference Range Interpretation Comments RBC MORPHOLOGY REQUIRED (test code = RBCM) TOTAL CELLS COUNTED (test code = TCC) #CELLS SEGMENTED NEUTROPHILS (test code = % 36.2-73.8 SEG) LYMPHOCYTE (test code = LYMPH) % 12.9-45.1 MONOCYTE (test code = MON) % 0-11 PLATELET ESTIMATE (test code = ADEQUATE PLTEST) PLATELET MORPHOLOGY (test code = NORMAL PLTMORPH) VANCOMYCIN [id number] 23:47:00 Test Item Value Reference Range Interpretation Comments VANCOMYCIN TROUGH (test code = 14.1 UG/ML 10.0-20.0 N VANCT) CBC W/AUTO [id number] 15:26:00 Test Item Value Reference Range Interpretation Comments WHITE BLOOD CELL (test code = 4.6 K/MM3 3.8-9.8 N WBC) RED BLOOD CELL (test code = 4.30 M/MM3 3.58-4.97 N RBC) HEMOGLOBIN (test code = HGB) 10.6 G/DL 11.2-14.9 L HEMATOCRIT (test code = HCT) 34.2 % 33.2-43.5 N MEAN CELL VOLUME (test code = 80 fL 80.7-99.1 L MCV) MEAN CELL HGB (test code = MCH) 24.7 pg 27.0-34.1 L MEAN CELL HGB CONCETRATION 31.0 % 32.2-35.7 L (test code = MCHC) RED CELL DISTRIBUTION WIDTH 23.9 % 12.1-15.2 H (test code = RDW) PLATELET COUNT (test code = 219 K/MM3 129-368 N PLT) MEAN PLATELET VOLUME (test code 9.7 fl 7.4-10.4 N = MPV) NEUTROPHIL % (test code = NT%) 62.1 % 43-75 N IMMATURE GRANULOCYTE % (test 0.4 % 0.0-2.0 N code = IG%) LYMPHOCYTE % (test code = LY%) 20.9 % 14-44 N MONOCYTE % (test code = MO%) 10.5 % 4-13 N EOSINOPHIL % (test code = EO%) 5.7 % 0-6 N BASOPHIL % (test code = BA%) 0.4 % 0-2 N NUCLEATED RBC % (test code = 0.0 % 0-1.0 N NRBC%) NEUTROPHIL # (test code = NT#) 2.85 K/mm3 2.0-7.6 N IMMATURE GRANULOCYTE # (test 0.02 x10 3/uL 0-0.03 N code = IG#) LYMPHOCYTE # (test code = LY#) 0.96 K/mm3 1.0-3.8 L MONOCYTE # (test code = MO#) 0.48 K/mm3 0.1-0.8 N EOSINOPHIL # (test code = EO#) 0.26 K/mm3 0.0-0.2 H BASOPHIL # (test code = BA#) 0.02 K/mm3 0.0-0.2 N NUCLEATED RBC # (test code = 0.00 K/mm3 0.0-0.1 N NRBC#) DIFFERENTIAL [id number] 15:26:00 Test Item Value Reference Range Interpretation Comments RBC MORPHOLOGY REQUIRED (test code = NORMAL RBCM) POIKILOCYTOSIS (test code = POIK) FEW NONE ANISOCYTOSIS (test code = ANISO) SLIGHT NONE MICROCYTOSIS (test code = MICR) FEW NONE PLATELET ESTIMATE (test code = ADEQUATE ADEQUATE PLTEST) PLATELET MORPHOLOGY (test code = NORMAL NORMAL PLTMORPH) BASIC METABOLIC [id number] 11:48:00 Test Item Value Reference Range Interpretation Comments SODIUM (test code = 138 MMOL/L 137-145 N NA) POTASSIUM (test code = 4.5 MMOL/L 3.5-5.1 N K) CHLORIDE (test code = 105 MMOL/L 98-107 N CL) CARBON DIOXIDE (test 29 MMOL/L 22-30 N code = CO2) GLUCOSE (test code = 85 MG/DL 74-106 N GLU) BLOOD UREA NITROGEN 12 MG/DL 7-17 N (test code = BUN) GLOMERULAR FILTRATION > 60 Report ing units: RATE (test code = GFR) ml/mi n/1.73 m2 (Modified MDRD Formula)Referen ce Range: > or = 6 0 ml/min/1.73 m2 CREATININE (test code 0.70 MG/DL 0.52-1.04 N = CREAT) CALCIUM (test code = 9.5 MG/DL 8.4-10.2 N CA) - CT HD/BR W W/O [id number] 11:45:00 Patient Name: LEIGH FRYE Unit No: [id number] EXAMS: CPT CODE: [id number] CT HD/BR W W/O CONT [address] HEAD WITHOUT CONTRAST HISTORY: post op trans sp hen pit/?csf leak TECHNIQUE: Axial CT images from the skull base to the vertex without intravenous contrast. Coronal and sagittal reformatted images were created from the data set. One or more of the following dose reduction techniques were used: Automated exposure control, adjustment of the mA and/or kV according to patient size, and/or iterative reconstruction. COMPARISON: 09/27/2018 FINDINGS: Postsurgical changes again noted in the sella and left sphenoid sinus with packing material filling the left sphenoid sinus and floor of the sella. No residual enhancement in the sella. Otherwise, no abnormal brain parenchymal density. No evidence of acute infarction, intracranial hemorrhage, mass or mass effect, or abnormal extra-axial fluid collection. The ventricles are normal in size, shape and position. The density in the larger dural sinuses is grossly normal. The osseous structures and orbits have [...] MD CC: Technologist: URIEL BARTON RT(R)(CT)(MR); CTDI: DLP: Trnscrpt: 10/01/2018 (1145) [id number] [facility] NAME: LEIGH FRYE [address] PHYS: [place] [address] : 1980 AGE: 38 SEX: F LOC: Z.530 A PHONE #: [phone] EXAM DATE: 10/01/2018 STATUS: ADM IN FAX #: [phone] RAD #: D/C DT PAGE 1 Signed Report Patient Name: LEIGH FRYE Unit No: [id number]: CPT CODE: [id number] CT HD/BR W W/O CONT 48334 <Continued> Orig Print D/T: S: 10/01/2018 ([id number]) [facility] NAME: LEIGH FRYE [id number] PHYS: [place] [address] : 1980 AGE: 38 SEX: F LOC: [id number] A PHONE #: [phone] DATE: 10/01/2018 STATUS: ADM IN FAX #: [phone] RAD #: D/C DT PAGE 2 Signed ReportPROTHROMBIN [id number] 11:40:00 Test Item Value Reference Range Interpretation Comments PROTHROMBIN TIME 10.3 SECONDS 9.6-11.6 N PATIENT (test code = PTP) INTERNATIONAL NORMAL 1.0 0.8-1.1 N The INR is to be RATIO (test code = used only for INR) monitoring oral anticoagulantth erap y. INDICATION I NR VALUE ---- ---- ---- -------1. Prophylaxis, de ep venous thrombos is, including hig h risk surgery. 2.0 - 3.0 2. Prophylaxis, de ep venous thrombos is, hip surgery, treatment for d eep venous thrombosis or pulmonary prevention of systemic emboli sm in patients wit h valvular heart disease, atrial fibrillation, tissue heart va lve, or acute myocar dial infarction. 2.0 - 3 .0 3. Mechanical prosthesis hear t valves, recurrent syste donovan embolism. 3.0 - 4.5 PTT [id number] 11:40:00 Test Item Value Reference Range Interpretation Comments PTT ACTIVATED (test code = APTT) 25.7 SECONDS 22.0-33.0 N [id number] 11:40:00 Test Item Value Reference Range Interpretation Comments FIBRINOGEN (test code = FIB) 430 MG/DL 185-512 N [id number] 11:40:00 Test Item Value Reference Range Interpretation Comments D-DIMER (test 1.21 MG/L FEU 0-0.49 H Negative Pred ictive Value code = cutoff for DVT & PE: <0.50 DDIMER) mg/L FEUInterpr etation: A value of <0.50 mg/L FEU has a NegativePredi ctive Value in ruling out a DVT or PE diagnosis.A pb ue of 0.50 mg/L or greater is considered Positive.Positi ve result cannot be used for the diagnosis of DV T andPE without using o f standard radiological pr ocedures. CBC W/AUTO [id number] 11:24:00 Test Item Value Reference Range Interpretation Comments WHITE BLOOD CELL (test code = 4.6 K/MM3 3.8-9.8 N WBC) RED BLOOD CELL (test code = 4.30 M/MM3 3.58-4.97 N RBC) HEMOGLOBIN (test code = HGB) 10.6 G/DL 11.2-14.9 L HEMATOCRIT (test code = HCT) 34.2 % 33.2-43.5 N MEAN CELL VOLUME (test code = 80 fL 80.7-99.1 L MCV) MEAN CELL HGB (test code = MCH) 24.7 pg 27.0-34.1 L MEAN CELL HGB CONCETRATION 31.0 % 32.2-35.7 L (test code = MCHC) RED CELL DISTRIBUTION WIDTH 23.9 % 12.1-15.2 H (test code = RDW) PLATELET COUNT (test code = 219 K/MM3 129-368 N PLT) MEAN PLATELET VOLUME (test code 9.7 fl 7.4-10.4 N = MPV) NEUTROPHIL % (test code = NT%) 62.1 % 43-75 N IMMATURE GRANULOCYTE % (test 0.4 % 0.0-2.0 N code = IG%) LYMPHOCYTE % (test code = LY%) 20.9 % 14-44 N MONOCYTE % (test code = MO%) 10.5 % 4-13 N EOSINOPHIL % (test code = EO%) 5.7 % 0-6 N BASOPHIL % (test code = BA%) 0.4 % 0-2 N NUCLEATED RBC % (test code = 0.0 % 0-1.0 N NRBC%) NEUTROPHIL # (test code = NT#) 2.85 K/mm3 2.0-7.6 N IMMATURE GRANULOCYTE # (test 0.02 x10 3/uL 0-0.03 N code = IG#) LYMPHOCYTE # (test code = LY#) 0.96 K/mm3 1.0-3.8 L MONOCYTE # (test code = MO#) 0.48 K/mm3 0.1-0.8 N EOSINOPHIL # (test code = EO#) 0.26 K/mm3 0.0-0.2 H BASOPHIL # (test code = BA#) 0.02 K/mm3 0.0-0.2 N NUCLEATED RBC # (test code = 0.00 K/mm3 0.0-0.1 N NRBC#) DIFFERENTIAL [id number] 11:24:00 Test Item Value Reference Range Interpretation Comments RBC MORPHOLOGY REQUIRED (test code = RBCM) PLATELET ESTIMATE (test code = PLTEST) ADEQUATE PLATELET MORPHOLOGY (test code = NORMAL PLTMORPH) PLATELET [id number] 11:24:00 Test Item Value Reference Range Interpretation Comments PLATELET COUNT (test code = PLT) 211 K/MM3 129-368 N CBC W/AUTO [id number] 11:24:00 Test Item Value Reference Range Interpretation Comments WHITE BLOOD CELL (test code = 4.6 K/MM3 3.8-9.8 N WBC) RED BLOOD CELL (test code = 4.30 M/MM3 3.58-4.97 N RBC) HEMOGLOBIN (test code = HGB) 10.6 G/DL 11.2-14.9 L HEMATOCRIT (test code = HCT) 34.2 % 33.2-43.5 N MEAN CELL VOLUME (test code = 80 fL 80.7-99.1 L MCV) MEAN CELL HGB (test code = MCH) 24.7 pg 27.0-34.1 L MEAN CELL HGB CONCETRATION 31.0 % 32.2-35.7 L (test code = MCHC) RED CELL DISTRIBUTION WIDTH 23.9 % 12.1-15.2 H (test code = RDW) PLATELET COUNT (test code = 219 K/MM3 129-368 N PLT) MEAN PLATELET VOLUME (test code 9.7 fl 7.4-10.4 N = MPV) NEUTROPHIL % (test code = NT%) 62.1 % 43-75 N IMMATURE GRANULOCYTE % (test 0.4 % 0.0-2.0 N code = IG%) LYMPHOCYTE % (test code = LY%) 20.9 % 14-44 N MONOCYTE % (test code = MO%) 10.5 % 4-13 N EOSINOPHIL % (test code = EO%) 5.7 % 0-6 N BASOPHIL % (test code = BA%) 0.4 % 0-2 N NUCLEATED RBC % (test code = 0.0 % 0-1.0 N NRBC%) NEUTROPHIL # (test code = NT#) 2.85 K/mm3 2.0-7.6 N IMMATURE GRANULOCYTE # (test 0.02 x10 3/uL 0-0.03 N code = IG#) LYMPHOCYTE # (test code = LY#) 0.96 K/mm3 1.0-3.8 L MONOCYTE # (test code = MO#) 0.48 K/mm3 0.1-0.8 N EOSINOPHIL # (test code = EO#) 0.26 K/mm3 0.0-0.2 H BASOPHIL # (test code = BA#) 0.02 K/mm3 0.0-0.2 N NUCLEATED RBC # (test code = 0.00 K/mm3 0.0-0.1 N NRBC#) DIFFERENTIAL [id number] 11:24:00 Test Item Value Reference Range Interpretation Comments RBC MORPHOLOGY REQUIRED (test code = RBCM) PLATELET ESTIMATE (test code = PLTEST) ADEQUATE PLATELET MORPHOLOGY (test code = NORMAL PLTMORPH) CBC W/O [id number] 00:37:00 Test Item Value Reference Range Interpretation Comments WHITE BLOOD CELL (test code = 6.4 K/MM3 3.8-9.8 N WBC) RED BLOOD CELL (test code = 4.58 M/MM3 3.58-4.97 N RBC) HEMOGLOBIN (test code = HGB) 11.3 G/DL 11.2-14.9 N HEMATOCRIT (test code = HCT) 37.2 % 33.2-43.5 N MEAN CELL VOLUME (test code = 81 fL 80.7-99.1 N MCV) MEAN CELL HGB (test code = MCH) 24.7 pg 27.0-34.1 L MEAN CELL HGB CONCETRATION 30.4 % 32.2-35.7 L (test code = MCHC) RED CELL DISTRIBUTION WIDTH 24.4 % 12.1-15.2 H (test code = RDW) PLATELET COUNT (test code = 252 K/MM3 129-368 N PLT) NEUTROPHIL # (test code = NT#) 2.87 K/mm3 2.0-7.6 N IMMATURE GRANULOCYTE # (test 0.01 x10 3/uL 0-0.03 N code = IG#) LYMPHOCYTE # (test code = LY#) 2.82 K/mm3 1.0-3.8 N MONOCYTE # (test code = MO#) 0.43 K/mm3 0.1-0.8 N EOSINOPHIL # (test code = EO#) 0.28 K/mm3 0.0-0.2 H BASOPHIL # (test code = BA#) 0.03 K/mm3 0.0-0.2 N NUCLEATED RBC # (test code = 0.00 K/mm3 0.0-0.1 N NRBC#) DIFFERENTIAL [id number] 00:37:00 Test Item Value Reference Range Interpretation Comments RBC MORPHOLOGY REQUIRED (test code = ABNORMAL RBCM) ANISOCYTOSIS (test code = ANISO) MODERATE NONE MICROCYTOSIS (test code = MICR) FEW NONE PLATELET ESTIMATE (test code = ADEQUATE ADEQUATE PLTEST) PLATELET MORPHOLOGY (test code = NORMAL NORMAL PLTMORPH) - CT HD/BR W W/O [id number] 00:36:00 Patient Name: LEIGH FRYE Unit No: [id number] EXAMS: CPT CODE: [id number] CT HD/BR W W/O CONT 47030 Exam: CT of the brain and maxillofacial [...] reconstruction technique. Total DLP: 2300.6 mGy-cm. Comparison: 08/31/2018 CT head Location: R16 Findings: [...] right inferior rectus muscle, correlate for entrapment. [facility] NAME: LEIGH FRYE [id number] [address] PHYS: [place] [address] : 1980 AGE: 38 SEX: F LOC: [employer] PHONE #: [phone] EXAM DATE: 09/27/2018 STATUS: REG ER FAX #: [phone] RAD #: D/C DT PAGE 1 Signed Report (CONTINUED) Patient Name: LEIGH FRYE Unit No: [id number] EXAMS: CPT CODE: [id number] CT HD/BR W W/O CONT 15004 <Continued> at 0036 Reported and signed by: Ko Luo MD CC: Lazarus Brink MD Technologist: TAVON RT(R)(CT)(MR) CTDI: DLP: Trnscrpt: 09/28/2018 (0036) t.SDR.RH16 [facility] NAME: LEIGH FRYE [id number] PHYS: [place] [address] : 1980 AGE: 38 SEX: F LOC: [employer] PHONE #: [phone] EXAM DATE: 09/27/2018 STATUS: REG ER FAX #: [phone] RAD #: D/C DT PAGE 2 Signed Report Patient Name: LEIGH FRYE Unit No: [id number] EXAMS: CPT CODE: [id number] CT HD/BR W W/O CONT 60225 <Continued> Orig Print D/T: S: 09/28/2018 (0040) [facility] NAME: LEIGH FRYE [address] PHYS: [place] [address] : 1980 AGE: 38 SEX: F LOC: [employer] PHONE #: [phone] EXAM DATE: 09/27/2018 STATUS: REG ER FAX #: [phone] RAD #: D/C DT PAGE 3 Signed Report- CT MAXIFAC W/CONTRAST 2018-09-28 00:36:00 Patient Name: LEIGH FRYE Unit No: [id number] EXAMS: CPT CODE: [id number] CT MAXIFAC W/CONTRAST 44150 Exam: CT of the brain and maxillofacial [...] reconstruction technique. Total DLP: 2300.6 mGy-cm. Comparison: 08/31/2018 CT head Location: R16 Findings: [...] for entrapment. [facility] NAME: LEIGH FRYE [id number] [address] PHYS: [place] [address] : 1980 AGE: 38 SEX: F LOC: [employer] PHONE #: [phone] EXAM DATE: 09/27/2018 STATUS: REG ER FAX #: [phone] RAD #: D/C DT PAGE 1 Signed Report (CONTINUED) Patient Name: LEIGH FRYE Unit No: [id number] EXAMS: CPT CODE: [id number] CT MAXIFAC W/CONTRAST 85870 <Continued> at 0036 Reported and signed by: Ko Luo MD CC: Lazarus Brink MD Technologist: TAVON RT(R)(CT)(MR) CTDI: DLP: Trnscrpt: 09/28/2018 (0036) t.SDR.RH16 [facility] NAME: LEIGH FRYE Js PHYS: [place] [address] : 1980 AGE: 38 SEX: F LOC: [employer] PHONE #: [phone] EXAM DATE: 09/27/2018 STATUS: REG ER FAX #: [phone] RAD #: D/C DT PAGE 2 Signed Report Patient Name: LEIGH FRYE Unit No: [id number] EXAMS: CPT CODE: [id number] CT MAXIFAC W/CONTRAST 22870 <Continued> Orig Print D/T: S: 09/28/2018 (0040) [facility] NAME: LEIGH FRYE41 Js PHYS: Lazarus Mustafa MD [place] [id number] : 1980 AGE: 38 SEX: F LOC: [employer] PHONE #: [phone] EXAM DATE: 09/27/2018 STATUS: REG ER FAX #: [phone] RAD #: D/C DT PAGE 3 Signed Report- CT ABD PELVIS W/O CONT 2018-09-28 00:22:00 Patient Name: LEIGH FRYE Unit No: [id number] EXAMS: CPT CODE: [id number] CT ABD PELVIS W/O CONT 58714 CLINICAL HISTORY: Flank pain. LOCATION: E5 FINDINGS: [...] size and/or use of iterative reconstruction technique at 0022 Reported and signed by: Luis M Gee MD CC: Lazarus Brink MD Technologist: URIEL BARTON RT(R)(CT)(MR) CTDI: DLP: Trnscrpt: 09/28/2018 (0022) t.SDR.RC7 [facility] NAME: LEIGH FRYE [address] PHYS:TIFFANY.Darcie - [place] [address] : 1980 AGE: 38 SEX: F LOC: [employer] PHONE #: [phone] EXAM DATE: 09/27/2018 STATUS: REG ER FAX #: [phone] RAD #: D/C DT PAGE 1 Signed Report Patient Name: LEIGH FRYE Unit No: [id number] EXAMS: CPT CODE: [id number] CT ABD PELVIS W/O [id number] <Continued> Orig Print D/T: S: 09/28/2018 (0025) [facility] NAME: LEIGH FRYE [address] PHYS: [place] [address] : 1980 AGE: 38 SEX: F LOC: [employer] PHONE #: [phone] EXAM DATE: 09/27/2018 STATUS: REG ER FAX #: [phone] RAD #: D/C DT PAGE2 Signed ReportBASIC METABOLIC [id number] 23:35:00 Test Item Value Reference Range Interpretation Comments SODIUM (test code = 140 MMOL/L 137-145 N NA) POTASSIUM (test code = 4.2 MMOL/L 3.5-5.1 N K) CHLORIDE (test code = 105 MMOL/L 98-107 N CL) CARBON DIOXIDE (test 27 MMOL/L 22-30 N code = CO2) ANION GAP (test code = 12 MMOL/L 14-24 L GAP) GLUCOSE (test code = 91 MG/DL 74-106 N GLU) BLOOD UREA NITROGEN 12 MG/DL 7-17 N (test code = BUN) GLOMERULAR FILTRATION > 60 Report ing units: RATE (test code = GFR) ml/mi n/1.73 m2 (Modified MDRD Formula)Referen ce Range: > or = 6 0 ml/min/1.73 m2 CREATININE (test code 0.80 MG/DL 0.52-1.04 N = CREAT) CALCIUM (test code = 9.7 MG/DL 8.4-10.2 N CA) HEPATIC FUNCTION [id number] 23:35:00 Test Item Value Reference Range Interpretation Comments TOTAL PROTEIN (test code = PROT) 8.6 G/DL 6.3-8.2 H ALBUMIN (test code = ALB) 4.4 G/DL 3.5-5.0 N BILIRUBIN TOTAL (test code = 0.4 MG/DL 0.2-1.3 N BILT) BILIRUBIN DIRECT (test code = 0.0 MG/DL 0.0-0.3 N BILD) SGOT/AST (test code = AST) 25 UNITS/L 14-36 N SGPT/ALT (test code = ALT) 29 UNITS/L 9-52 ALKALINE PHOSPHATASE (test code = 139 UNITS/L 38-126 H ALKP) [id number] 23:35:00 Test Item Value Reference Range Interpretation Comments LIPASE (test code = LIP) 134 UNITS/L 23-300 N HCG SERUM [id number] 23:35:00 Test Item Value Reference Range Interpretation Comments HCG SERUM QUAL (test code = HCGQL) NEGATIVE NEGATIVE A BASIC METABOLIC [id number] 23:31:00 Test Item Value Reference Range Interpretation Comments SODIUM (test code = NA) MMOL/L 137-145 POTASSIUM (test code = K) MMOL/L 3.5-5.1 CHLORIDE (test code = CL) MMOL/L 98-107 CARBON DIOXIDE (test code = CO2) MMOL/L 22-30 GLUCOSE (test code = GLU) MG/DL 74-106 BLOOD UREA NITROGEN (test code = BUN) MG/DL 7-17 GLOMERULAR FILTRATION RATE (test code = GFR) CREATININE (test code = CREAT) MG/DL 0.52-1.04 CALCIUM (test code = CA) MG/DL 8.7-9.7 HEPATIC FUNCTION [id number] 23:31:00 Test Item Value Reference Range Interpretation Comments TOTAL PROTEIN (test code = PROT) G/DL 6.3-8.2 ALBUMIN (test code = ALB) G/DL 3.5-5.0 BILIRUBIN TOTAL (test code = BILT) MG/DL 0.2-1.3 BILIRUBIN DIRECT (test code = BILD) MG/DL 0.0-0.3 SGOT/AST (test code = AST) UNITS/L 15-37 SGPT/ALT (test code = ALT) UNITS/L 9-52 ALKALINE PHOSPHATASE (test code = UNITS/L 38-126 ALKP) [id number] 23:31:00 Test Item Value Reference Range Interpretation Comments LIPASE (test code = LIP) UNITS/L 23-300 HCG SERUM [id number] 23:31:00 Test Item Value Reference Range Interpretation Comments HCG SERUM QUAL (test code = HCGQL) NEGATIVE NEGATIVE A URINALYSIS [id number] 23:24:00 Test Item Value Reference Range Interpretation Comments UA COLOR (test code = YELLOW YELLOW COLU) UA APPEARANCE (test code SLIGHT CLOUDY CLEAR = APPU) UA GLUCOSE DIPSTICK (test NORMAL MG/DL NORMAL code = DGLUU) UA BILIRUBIN DIPSTICK NEGATIVE MG/DL NEGATIVE (test code = BILU) UA KETONE DIPSTICK (test NEGATIVE MG/DL NEGATIVE code = KETU) UA SPECIFIC GRAVITY (test 1.015 1.003-1.030 N code = SGU) UA BLOOD DIPSTICK (test NEGATIVE Demond/mm3 NEGATIVE code = NATE) UA PH DIPSTICK (test code 6.0 5.0-9.0 N = KAYLEN) UA PROTEIN DIPSTICK (test NEGATIVE MG/DL NEGATIVE code = PROU) UA UROBILINIOGEN DIPSTICK NORMAL MG/DL NORMAL (test code = URO) UA NITRITE DIPSTICK (test NEGATIVE NEGATIVE code = NORMA) UA LEUKOCYTE ESTERASE NEGATIVE /mm3 NEGATIVE DIPSTICK (test code = LEUU) UA CULTURE NEEDED? (test NEGATIVE, NO CULTURE Culture Chk code = UACULT) Criteria SOURCE OF URINE: CLEAN CATCHCBC W/O [id number] 23:18:00 Test Item Value Reference Range Interpretation Comments WHITE BLOOD CELL (test code = 6.4 K/MM3 3.8-9.8 N WBC) RED BLOOD CELL (test code = 4.58 M/MM3 3.58-4.97 N RBC) HEMOGLOBIN (test code = HGB) 11.3 G/DL 11.2-14.9 N HEMATOCRIT (test code = HCT) 37.2 % 33.2-43.5 N MEAN CELL VOLUME (test code = 81 fL 80.7-99.1 N MCV) MEAN CELL HGB (test code = MCH) 24.7 pg 27.0-34.1 L MEAN CELL HGB CONCETRATION 30.4 % 32.2-35.7 L (test code = MCHC) RED CELL DISTRIBUTION WIDTH 24.4 % 12.1-15.2 H (test code = RDW) PLATELET COUNT (test code = 252 K/MM3 129-368 N PLT) NEUTROPHIL # (test code = NT#) 2.87 K/mm3 2.0-7.6 N IMMATURE GRANULOCYTE # (test 0.01 x10 3/uL 0-0.03 N code = IG#) LYMPHOCYTE # (test code = LY#) 2.82 K/mm3 1.0-3.8 N MONOCYTE # (test code = MO#) 0.43 K/mm3 0.1-0.8 N EOSINOPHIL # (test code = EO#) 0.28 K/mm3 0.0-0.2 H BASOPHIL # (test code = BA#) 0.03 K/mm3 0.0-0.2 N NUCLEATED RBC # (test code = 0.00 K/mm3 0.0-0.1 N NRBC#) DIFFERENTIAL [id number] 23:18:00 Test Item Value Reference Range Interpretation Comments RBC MORPHOLOGY REQUIRED (test code = RBCM) PLATELET ESTIMATE (test code = PLTEST) ADEQUATE PLATELET MORPHOLOGY (test code = NORMAL PLTMORPH) CBC W/O [id number] 23:18:00 Test Item Value Reference Range Interpretation Comments WHITE BLOOD CELL (test code = 6.4 K/MM3 3.8-9.8 N WBC) RED BLOOD CELL (test code = 4.58 M/MM3 3.58-4.97 N RBC) HEMOGLOBIN (test code = HGB) 11.3 G/DL 11.2-14.9 N HEMATOCRIT (test code = HCT) 37.2 % 33.2-43.5 N MEAN CELL VOLUME (test code = 81 fL 80.7-99.1 N MCV) MEAN CELL HGB (test code = MCH) 24.7 pg 27.0-34.1 L MEAN CELL HGB CONCETRATION 30.4 % 32.2-35.7 L (test code = MCHC) RED CELL DISTRIBUTION WIDTH 24.4 % 12.1-15.2 H (test code = RDW) PLATELET COUNT (test code = 252 K/MM3 129-368 N PLT) NEUTROPHIL # (test code = NT#) 2.87 K/mm3 2.0-7.6 N IMMATURE GRANULOCYTE # (test 0.01 x10 3/uL 0-0.03 N code = IG#) LYMPHOCYTE # (test code = LY#) 2.82 K/mm3 1.0-3.8 N MONOCYTE # (test code = MO#) 0.43 K/mm3 0.1-0.8 N EOSINOPHIL # (test code = EO#) 0.28 K/mm3 0.0-0.2 H BASOPHIL # (test code = BA#) 0.03 K/mm3 0.0-0.2 N NUCLEATED RBC # (test code = 0.00 K/mm3 0.0-0.1 N NRBC#) DIFFERENTIAL [id number] 23:18:00 Test Item Value Reference Range Interpretation Comments RBC MORPHOLOGY REQUIRED (test code = RBCM) PLATELET ESTIMATE (test code = PLTEST) ADEQUATE PLATELET MORPHOLOGY (test code = NORMAL PLTMORPH) URINALYSIS [id number] 23:15:00 Test Item Value Reference Range Interpretation Comments UA COLOR (test code = COLU) YELLOW YELLOW UA APPEARANCE (test code = SLIGHT CLOUDY CLEAR APPU) UA GLUCOSE DIPSTICK (test NORMAL MG/DL NORMAL code = DGLUU) UA BILIRUBIN DIPSTICK (test NEGATIVE MG/DL NEGATIVE code = BILU) UA KETONE DIPSTICK (test NEGATIVE MG/DL NEGATIVE code = KETU) UA SPECIFIC GRAVITY (test 1.015 1.003-1.030 N code = SGU) UA BLOOD DIPSTICK (test code NEGATIVE Demond/mm3 NEGATIVE = NATE) UA PH DIPSTICK (test code = 6.0 5.0-9.0 N KAYLEN) UA PROTEIN DIPSTICK (test NEGATIVE MG/DL NEGATIVE code = PROU) UA UROBILINIOGEN DIPSTICK NORMAL MG/DL NORMAL (test code = URO) UA NITRITE DIPSTICK (test NEGATIVE NEGATIVE code = NORMA) UA LEUKOCYTE ESTERASE NEGATIVE /mm3 NEGATIVE DIPSTICK (test code = LEUU) UA CULTURE NEEDED? (test Criteria Culture Chk code = UACULT) SOURCE OF URINE: CLEAN CATCHVENOUS THROMBOPHILIA [id number] 07:52:00 Test Item Value Reference Range Interpretation Comments MISC COAG Venous Thrombos is Profile (test code = Homocysteine 5. 5 umol/L MISCCOAG) Homocysteine le vels in patients >60 years incre ase 1-2umol/L.Refer ence Range:5.0 - 15.0 Factor VII I Activity 181 High % FVIII activit y can increase in a variety of clin icalsituations including elton l , in samples drawn f rompatients (particularly c hilen) who are visibly stresse d atthe time of phlebotomy, as acute phase reactants, or i nresponse to certain drug th erapies such as DDAVP.Persisten tly elevated FVIII activity is a r isk factor forvenous throm bosis as well as recurrence of v enousthrombosis. Risk is graded and increases with the degree ofel evation. Although elevated FVIII activity has beenidentified to cluster within families, a gen etic basis forthe elevation has n ot yet been elucidated (Br J Haematol.2012; 157:653-663).Re ference Range:57 - 163 Antithrombi n Activity, Cjervm959 % Dir ect oral anticoagulants such as rivaroxaban, ap ixaban andedoxaban will lead to sp uriously elevated antithrombinact ivity levels possibly maskin g a deficiency.Refe rence Range:7 months and olde r: 75 - 135 Prt C Activity (Chrom ogenic) 106 % Reference Range :17 years and older: 73 - 180 Protein S Antigen, Free 75 % Refer ence Range:7 months and older: 57 - 157This test was developed and i ts performance characteristics determined by [employer]. It has not been cleared or approvedby [facility] Food and Drug Administration. APTT 29.4 sec This test has not be en validated for monitoringunfra ctionated heparin therapy. aPTT-b ased therapeuticrang es for unfractionated heparin therapy have not beenes tablished. Consider ordering Hepari n anti-Xa(unfract ionated).Reference Range:18 years and older: 22.9 - 30.2APTT 1:1 ACCOUNTS SPECIALIST Testing Not Indicated Not i ndicatedAPTT 1:1 SalineTesting N ot Indicated Not indicatedLAC In terpretation Results are int erpreted as indeterminate f or the presenceof a lupus anticoagu lant (LA). Only one phospholipiddep endent assay showed evidence of con firmation, with thehexagonal ph ospholipid neutralization assay result fallingjust abo ve the normal reference inter pb. This test may befalsely posit thomas if the sample is collected wh ile thepatient is on heparin, dir ect Xa inhibitor, or directthromb in inhibitor therapy. Only p ersistent LA meetlaboratory diagnostic criteria for antiphospho lipidsyndrome. To confirm or refu te the presence of a LA and todete rmine persistence, repeat testing in 12 or more weeksis recomme nded. Ideally, repeat testing should be performedin the absence of anticoagulant t herapy. All GIANCARLO-basedanti phospholipid antibodies eval uated are normal. Pleasecontact [facility] if further clar ification isneeded.Act. P rt C Resist w/FV Defic.1.6 Low r atio A low activated prote in C resistance (APCR) is a ris k factorfor venous thrombosis and is a screen for the Factor VLeiden mutation. Consider molecular oscar sis for thismutation. O ther causes for abnormal APCR a re uncommon andinclude othe r rare mutations in the Factor V mo lecule, and certain xi g therapies, including thali domidetherapy, presence of a l upus anticoagulant, increased Facto rVIII levels, and autoantibodies against activated protein C.Refer ence Range:2.2 - 3.5 DRVVT Scree n Seconds 55.4 High sec Reference R geno:<= 47.0DRVVT Confirm Seconds 55.1 sec DRVVT Ratio 1.0 ratio Reference Range:0.8 - 1.2 Hexagonal Phospholipid Ne utral12 High sec This value is P OSITIVE.This is a qualitative ass ay and is therefore reported asposi tive for lupus anticoagulant o r negative. Testing whilethe patien t is on anticoagulant t herapy, including heparinor dabig atran, may cause a false positive result. Thequantitative value is provided as an aid in di agnosis.Reference Range:0 - 11 An ticardiolipin Ab, IgG <10 GPL Ref erence Range:Negative: <15Indeterminate: 15 - 20Low to m edium positive: >20 - 80High positi ve: >80Anticardioli pin Ab, IgM <10 MPL Reference Range :Negative: <13Indeterminat e: 13 - 20Low to medium positive : >20 - 80High positive: >80 B eta-2 Glycoprotein I, IgG <10 SGU The reference interval reflec ts a 3SD or 99th percentileinter pb, which is thought to repr esent a potentiallyclin ically significant result in accor dance with theInternationa l Consensus Statement on e classificationc riteria for definitive anti phospholipid syndrome (APS). JThromb Ehxc8634;4:295- 306.Reference Range:Negative: <21Beta-2 Glycoprotein I, IgM <10 SMU The reference inter pb reflects a 3SD or 99th percent ileinterval, which is thought to r epresent a potentiallyclin ically significant result in accor dance with theInternationa l Consensus Statement on th e classificationc riteria for definitive anti phospholipid syndrome (APS). JThromb Tazq2747;4:295- 306.Reference Range:Negative: <33Beta-2 Glycoprotein I, IgA <10 DERIAN The reference inter pb reflects a 3SD or 99th percentileinter pb.Reference Range:Negative: <26 Factor II Gene Mutation Result G-G (Normal-Normal) No prothrombin Q97590F mutatio n present.Interpr etation: While the patient does no t possess this risk factor, otherth rombotic risk factors may be detected through systematicclini carol laboratory analysis.Method ology: Patient DNA was evaluated f or the factor II gene mutationat nucleotide using PCR ampli fication followed byrestriction a nalysis and gel electrophoresis .Comments: Simultaneous Ri sks: If a patient possesses two o r morecongenital or acquired thromb ophilic risk factors, the ri skof thrombosis may rise to more th an the sum of the riskratios for the individual risk factors. For in stance, acombination of the prothrombin A32120A mutatio n and thefactor V Leiden mutation may confer an increase inthro mbotic risk in the range of 20-30 fold.Recommenda tions for Genetic Counseling: The prothrombingene mutation is an inherited characteristic. If themutation is present, we rec ommend that the patient andthei r family consider genetic certified addiction counselor ing to obtainadditiona l information on inheritance and to identify otherfamily mem bers at risk.Testing Ch aracteristics: Genetic testing providesexcepti onally high sensitivity and specificity. Inaccurateresul ts are limited to rare polymorphi sms in primer bindingsites an d to misidentificati on of specimens by collectorsor la boratory personnel. This assay dete cts only theprothrombin I08890C mutation and does not de tect othergenetic abnormalities.T his test was developed and i ts performance characteristics determined by [employer]. It has not been cleared or approvedby t Food and Drug Administration. References: Presley Maza et al. Br J of Haem. 1997;98:907.Cum gladys AM, et al. Br J of Haem. 1997 ;98:353. Jas-Vic hunter and Garcia Mol.Diagn. 2001 ;6(3):201.Rodri Richardson, et al. Throm b Haemost. 2001;86:809-16. Jayda Carroll, et al. Thromb Haem ost. 1999;82:1583. Factor V Leiden Factor V Leiden Result G-A (Nor mal-Mutant)Positive - Heterozygous for factor V Leiden mutation.Interp retation: The factor V Leiden mutation is present on one copy of thepatient's fa ctor V gene. Presence of the heterozygousfactor V Leiden mutati on confers an approximate 5-f oldincrease in the risk of venous thrombosis.Meth odology: Patient DNA was evaluat ed for the factor V Leiden mutation at nucleotide 1691 using allele sp ecific PCR technologyfollo wed by gel electrophoresis .Comments: Simultaneous Ri sks: If a patient possesses two o r morecongenital or acquired thromb ophilic risk factors, the ri skof thrombosis may rise to more th an the sum of the riskratios for the individual risk factors. For in stance, acombination of the prothrombin T13550R mutatio n and thefactor V Leiden mutation may confer an increase inthro mbotic risk in the range of 20-30 fold.Recommenda tions for Genetic Counseling: The factor V Leidenmutation is an inherited characteristic. If the mutation ispresent, we r ecommend that the patient and the ir familyconsider genetic certified addiction counselor ing to obtain additionalinfor mation on inheritance and to identify other familymembers a t risk.Testing Characteristics : Genetic testing providesexcepti onally high sensitivity and specificity. Inaccurateresul ts are limited to rare polymorphi sms in primer bindingsites an d to misidentificati on of specimens by collectorsor la boratory personnel. This assay dete cts only the factorV Leiden mutation and does not detect othe r geneticabnormal ities.This test was developed and i ts performance characteristics determined by [employer]. It has not been cleared or approvedby [facility] Food and Drug Administration. PER CHUCKIE RNVENOUS THROMBOSIS PROFILETEST CODE: [id number]: THREE TUBES, 2 ML PPP EACH, FROZEN 2 ML SERUM FROZEN 5 ML EDTA WHOLE BLOOD, ROOM [facility], [id number] 15:41:00 RUN DATE: 09/13/18 [facility] LAB PAGE 1 RUN TIME: 1541 Specimen Inquiry RUN USER: INTERFACE PATIENT: LEIGH FRYE LOC: [facility] U #: [id number] AGE/SX: 38/F ROOM: [facility] RE08/25/18REG DR: Jani Mckoy MD : 80 BED: A DIS: 09/13/18 STATUS: DIS IN TLOC: SPEC #: [id number] RECD: 09/12/18 STATUS: BILL REYoli #: [id number] LAST: 09/12/18-1220 [facility]: Jani Mckoy MD ENTERED: 09/12/18 SP TYPE: FLTHYR ANYA DR: Ko Valels MD, AsiaE DPM Reilly, Christopher L MD Shih, Patrick MDORDERED: CB, FNA, FNA SAMPLE ADEQ CODES: EG2109 - THYROID GLAND AA0196 P99600 - THYROID GLAND NEEDLE AP9663 G90136 - THYROID GLAND NEOPLASM, UNCER QV9153 X11417- THYROID GLAND ASPIRATION, NOS [place]IES [place]: [place] [address] [place] [id number] Ko Valles MD [address] [facility] [address] [place] [address] [email or web address] Matilde Burnham E DPM [address] [facility] [address] [place] [address] [place] [address] [place] [address] [place] [address] [facility] [address] [place] [address] PROCEDURES: CB (09/12/18-1709) FNA (09/12/18-1709) FNA SAMPLE ADEQ (09/13/18-154) TISSUES: A. THYROID GLAND, NOS - RIGHT THYROID FNA CONTINUED ON NEXT PAGE RUN DATE: 09/13/18 [facility] PAGE 2 RUN TIME: 1541 Specimen Inquiry RUN USER: INTERFACE SPEC #: [id number] PATIENT: LEIGH FRYE #[id number] (Continued) CLINICAL HISTORY PITUITARY TUMOR CONSULTATION Dr. Yeny Lubin has reviewed this case and agrees with the diagnosis. CPT CODES CPT CODE(S): 94905 , 94167 , 75256 , , , , FINAL DIAGNOSIS Thyroid, [...] SIGNATURE ON FILE Serafin Burton 09/13/18 1541 END OF REPORT ADRENOCORTICOTROPIC [id number] 07:25:00 Test Item Value Reference Range Interpretation Comments ADRENOCORTICOTROPIC HORMONE 10.1 pg/mL 7.2-63.3 ACTH reference (test code = ACTH) interval for samples collected between 7 and10 AM.Performed At : [facility] [address] [id number] Etienne Farfan MD Ph:[phone] - US FINE NEEDLE [id number] 15:08:00 Patient Name: LEIGH FRYE Unit No: [id number] EXAMS: CPT CODE: [id number] US FINE NEEDLE ASPIRATION [id number] Procedure: Ultrasound-guided right thyroid FNA Location: B2 Clinical Indication: 38-year-old with nodule Comparison: September 10, 2018 Technique: Written informed consent was obtained. Patient was placed supine on the stretcher and the right neck prepped and draped. Ultrasound was used to identify the nearly 3 cmwell- circumscribed hypoechoic mass. 1% lidocaine was given. Under direct ultrasound visualization, multiple fine-needle aspiration specimens were obtained using 25 and 23-gauge needles. These were deemed adequate by the pathologist. Patient tolerated the procedure well, without immediate complication. Impression: Successful FNA of aright thyroid 3 cm nodule. at 1508 Reported and signed by: Ko Valles M.D. CC: Technologist: Laura Devries Transcrpt Date/Tm/Trnsp: 09/12/2018 (1508) t.[email or web address].[email or web address] Orig Print D/T: S: 09/12/2018 (3512) [facility] NAME: LEIGH FRYE [address] [address] PHYS: [place] [address] : 1980 AGE: 38 SEX: F LOC: [id number] Jamel PHONE #: [phone] EXAM DATE: 09/12/2018 STATUS: ADM IN FAX #: [phone] RADIOLOGY NO: PAGE 1 Signed ReportUR OSMOLALITY RANDOM 2018-09-12 13:16:00 Test Item Value Reference Range Interpretation Comments UR OSMOLALITY RANDOM (test code = 311 MOS/KG 300-1200 N OSMOU) OSMOLALITY [id number] 10:17:00 Test Item Value Reference Range Interpretation Comments OSMOLALITY SERUM (test code = 297 mOsm/kg 275-295 H OSMO) [id number] 07:19:00 Test Item Value Reference Range Interpretation Comments GASTRIN (test 151 pg/mL 0-115 H Siemens Immuli te 2000 code = LINDA) Immunochemilumi nometric assay (ICMA)Values ob tained with different assay methods or kits cannotbe u sed interchangeably . Results cannot be inter preted asabsolute evid ence of the presence or abs ence of malignantdiseas e.Performed At: [facility] [place] [address] [place], [place] [id number] ra Kristen VELASCO Ph:[phone] PARATHYROID HORMONE [id number] 07:02:00 Test Item Value Reference Range Interpretation Comments PARATHYROID HORMONE INTACT (test 100.6 pg/mL 7.5-53.5 H code = PARAI) CBC W/AUTO [id number] 10:14:00 Test Item Value Reference Range Interpretation Comments WHITE BLOOD CELL (test code = 8.9 K/MM3 3.8-9.8 N WBC) RED BLOOD CELL (test code = 3.73 M/MM3 3.58-4.97 N RBC) HEMOGLOBIN (test code = HGB) 8.6 G/DL 11.2-14.9 L HEMATOCRIT (test code = HCT) 29.6 % 33.2-43.5 L MEAN CELL VOLUME (test code = 79 fL 80.7-99.1 L MCV) MEAN CELL HGB (test code = MCH) 23.1 pg 27.0-34.1 L MEAN CELL HGB CONCETRATION 29.1 % 32.2-35.7 L (test code = MCHC) RED CELL DISTRIBUTION WIDTH 24.6 % 12.1-15.2 H (test code = RDW) PLATELET COUNT (test code = 321 K/MM3 129-368 N PLT) MEAN PLATELET VOLUME (test code 10.0 fl 7.4-10.4 N = MPV) NEUTROPHIL % (test code = NT%) 52.2 % 43-75 N IMMATURE GRANULOCYTE % (test 0.7 % 0.0-2.0 N code = IG%) LYMPHOCYTE % (test code = LY%) 33.6 % 14-44 N MONOCYTE % (test code = MO%) 7.9 % 4-13 N EOSINOPHIL % (test code = EO%) 4.9 % 0-6 N BASOPHIL % (test code = BA%) 0.7 % 0-2 N NUCLEATED RBC % (test code = 0.0 % 0-1.0 N NRBC%) NEUTROPHIL # (test code = NT#) 4.64 K/mm3 2.0-7.6 N IMMATURE GRANULOCYTE # (test 0.06 x10 3/uL 0-0.03 H code = IG#) LYMPHOCYTE # (test code = LY#) 2.99 K/mm3 1.0-3.8 N MONOCYTE # (test code = MO#) 0.70 K/mm3 0.1-0.8 N EOSINOPHIL # (test code = EO#) 0.44 K/mm3 0.0-0.2 H BASOPHIL # (test code = BA#) 0.06 K/mm3 0.0-0.2 N NUCLEATED RBC # (test code = 0.00 K/mm3 0.0-0.1 N NRBC#) DIFFERENTIAL [id number] 10:14:00 Test Item Value Reference Range Interpretation Comments RBC MORPHOLOGY REQUIRED (test code = NORMAL RBCM) PLATELET ESTIMATE (test code = PLTEST) ADEQ ADEQUATE PLATELET MORPHOLOGY (test code = NORMAL NORMAL PLTMORPH) T4 [id number] 07:55:00 Test Item Value Reference Range Interpretation Comments T4 FREE (test code = T4F) 1.3 NG/DL 0.78-2.19 N THYROID STIMULATING [id number] 07:55:00 Test Item Value Reference Range Interpretation Comments THYROID STIMULATING 1.530 MIU/L 0.465-4.68 N Please b e aware that HORMONE (test code = bias re sults for TSH TSH) may occur forpa tient who are taking Biotin suppleme nts. CORTISOL [id number] 07:53:00 Test Item Value Reference Range Interpretation Comments CORTISOL AM (test code = CORTAM) 2.45 ug/dL 4.46-22.7 L T4 [id number] 07:41:00 Test Item Value Reference Range Interpretation Comments T4 FREE (test code = T4F) 1.3 NG/DL 0.78-2.19 N THYROID STIMULATING [id number] 07:41:00 Test Item Value Reference Range Interpretation Comments THYROID STIMULATING HORMONE (test code MIU/L 0.465-4.68 = TSH) COMPREHENSIVE METABOLIC [id number] 07:25:00 Test Item Value Reference Range Interpretation Comments SODIUM (test code = 142 MMOL/L 137-145 N NA) POTASSIUM (test code = 4.4 MMOL/L 3.5-5.1 N K) CHLORIDE (test code = 107 MMOL/L 98-107 N CL) CARBON DIOXIDE (test 28 MMOL/L 22-30 N code = CO2) ANION GAP (test code = 11 MMOL/L 14-24 L GAP) GLUCOSE (test code = 120 MG/DL 74-106 H GLU) BLOOD UREA NITROGEN 15 MG/DL 7-17 N (test code = BUN) GLOMERULAR FILTRATION > 60 Report ing units: RATE (test code = GFR) ml/mi n/1.73 m2 (Modified MDRD Formula)Referen ce Range: > or = 6 0 ml/min/1.73 m2 CREATININE (test code 0.70 MG/DL 0.52-1.04 N = CREAT) TOTAL PROTEIN (test 7.1 G/DL 6.3-8.2 N code = PROT) ALBUMIN (test code = 3.3 G/DL 3.5-5.0 L ALB) CALCIUM (test code = 9.5 MG/DL 8.4-10.2 N CA) BILIRUBIN TOTAL (test 0.1 MG/DL 0.2-1.3 L code = BILT) SGOT/AST (test code = 55 UNITS/L 14-36 H AST) SGPT/ALT (test code = 51 UNITS/L 9-52 ALT) ALKALINE PHOSPHATASE 131 UNITS/L 38-126 H (test code = ALKP) [id number] 07:25:00 Test Item Value Reference Range Interpretation Comments MAGNESIUM (test code = MAG) 2.0 MG/DL 1.6-2.3 N CBC W/AUTO [id number] 07:09:00 Test Item Value Reference Range Interpretation Comments WHITE BLOOD CELL (test code = 8.9 K/MM3 3.8-9.8 N WBC) RED BLOOD CELL (test code = 3.73 M/MM3 3.58-4.97 N RBC) HEMOGLOBIN (test code = HGB) 8.6 G/DL 11.2-14.9 L HEMATOCRIT (test code = HCT) 29.6 % 33.2-43.5 L MEAN CELL VOLUME (test code = 79 fL 80.7-99.1 L MCV) MEAN CELL HGB (test code = MCH) 23.1 pg 27.0-34.1 L MEAN CELL HGB CONCETRATION 29.1 % 32.2-35.7 L (test code = MCHC) RED CELL DISTRIBUTION WIDTH 24.6 % 12.1-15.2 H (test code = RDW) PLATELET COUNT (test code = 321 K/MM3 129-368 N PLT) MEAN PLATELET VOLUME (test code 10.0 fl 7.4-10.4 N = MPV) NEUTROPHIL % (test code = NT%) 52.2 % 43-75 N IMMATURE GRANULOCYTE % (test 0.7 % 0.0-2.0 N code = IG%) LYMPHOCYTE % (test code = LY%) 33.6 % 14-44 N MONOCYTE % (test code = MO%) 7.9 % 4-13 N EOSINOPHIL % (test code = EO%) 4.9 % 0-6 N BASOPHIL % (test code = BA%) 0.7 % 0-2 N NUCLEATED RBC % (test code = 0.0 % 0-1.0 N NRBC%) NEUTROPHIL # (test code = NT#) 4.64 K/mm3 2.0-7.6 N IMMATURE GRANULOCYTE # (test 0.06 x10 3/uL 0-0.03 H code = IG#) LYMPHOCYTE # (test code = LY#) 2.99 K/mm3 1.0-3.8 N MONOCYTE # (test code = MO#) 0.70 K/mm3 0.1-0.8 N EOSINOPHIL # (test code = EO#) 0.44 K/mm3 0.0-0.2 H BASOPHIL # (test code = BA#) 0.06 K/mm3 0.0-0.2 N NUCLEATED RBC # (test code = 0.00 K/mm3 0.0-0.1 N NRBC#) DIFFERENTIAL [id number] 07:09:00 Test Item Value Reference Range Interpretation Comments RBC MORPHOLOGY REQUIRED (test code = RBCM) PLATELET ESTIMATE (test code = PLTEST) ADEQUATE PLATELET MORPHOLOGY (test code = NORMAL PLTMORPH) CBC W/AUTO [id number] 07:09:00 Test Item Value Reference Range Interpretation Comments WHITE BLOOD CELL (test code = 8.9 K/MM3 3.8-9.8 N WBC) RED BLOOD CELL (test code = 3.73 M/MM3 3.58-4.97 N RBC) HEMOGLOBIN (test code = HGB) 8.6 G/DL 11.2-14.9 L HEMATOCRIT (test code = HCT) 29.6 % 33.2-43.5 L MEAN CELL VOLUME (test code = 79 fL 80.7-99.1 L MCV) MEAN CELL HGB (test code = MCH) 23.1 pg 27.0-34.1 L MEAN CELL HGB CONCETRATION 29.1 % 32.2-35.7 L (test code = MCHC) RED CELL DISTRIBUTION WIDTH 24.6 % 12.1-15.2 H (test code = RDW) PLATELET COUNT (test code = 321 K/MM3 129-368 N PLT) MEAN PLATELET VOLUME (test code 10.0 fl 7.4-10.4 N = MPV) NEUTROPHIL % (test code = NT%) 52.2 % 43-75 N IMMATURE GRANULOCYTE % (test 0.7 % 0.0-2.0 N code = IG%) LYMPHOCYTE % (test code = LY%) 33.6 % 14-44 N MONOCYTE % (test code = MO%) 7.9 % 4-13 N EOSINOPHIL % (test code = EO%) 4.9 % 0-6 N BASOPHIL % (test code = BA%) 0.7 % 0-2 N NUCLEATED RBC % (test code = 0.0 % 0-1.0 N NRBC%) NEUTROPHIL # (test code = NT#) 4.64 K/mm3 2.0-7.6 N IMMATURE GRANULOCYTE # (test 0.06 x10 3/uL 0-0.03 H code = IG#) LYMPHOCYTE # (test code = LY#) 2.99 K/mm3 1.0-3.8 N MONOCYTE # (test code = MO#) 0.70 K/mm3 0.1-0.8 N EOSINOPHIL # (test code = EO#) 0.44 K/mm3 0.0-0.2 H BASOPHIL # (test code = BA#) 0.06 K/mm3 0.0-0.2 N NUCLEATED RBC # (test code = 0.00 K/mm3 0.0-0.1 N NRBC#) DIFFERENTIAL [id number] 07:09:00 Test Item Value Reference Range Interpretation Comments RBC MORPHOLOGY REQUIRED (test code = RBCM) PLATELET ESTIMATE (test code = PLTEST) ADEQUATE PLATELET MORPHOLOGY (test code = NORMAL PLTMORPH) - US HEAD AND [id number] 09:01:00 Patient Name: LEIGH FRYE Unit No: [id number] EXAMS: CPT CODE: [id number] US HEAD AND NECK 43554 LOCATION: T18 EXAM: - US HEAD AND NECK INDICATION : nodule rt thyroid area COMPARISON: CT of [...] Renetta Mar MD CC: Technologist: Alexandra Greenwood (RDMS AB OB)Transcrpt Date/Tm/Trnsp: 09/10/2018 (900) Neno.JP19 Orig Print D/T: S: 09/10/2018 (0904) [facility] NAME: LEIGH FRYE [id number] [address] PHYS: AJU - [place] [address] : 1980 AGE: 38 SEX: F LOC: Z.504 A PHONE #: [phone] EXAM DATE: 09/10/2018 STATUS: ADMIN FAX #: [phone] RADIOLOGY NO: PAGE 1 Signed Report- XR CHEST 2 [id number] 09:35:00 Patient Name: LEIGH FRYE Unit No: [id number] EXAMS: CPT CODE: [id number] XR CHEST 2 V 22313 EXAM: CHEST 2 VIEWS INDICATION: Follow-up infiltrates [...] Cali, RT (R) Transcrpt Date/Tm/Trnsp: 09/09/2018 (0935) 16 Orig Print D/T: S: 09/09/2018 (0938) [facility] NAME: LEIGH FRYE [id number] [address] PHYS: [place] [address] : 1980 AGE: 38 SEX: F LOC: Nani Mccullough PHONE #:[phone] EXAM DATE: 09/09/2018 STATUS: ADM IN FAX #: [phone] RADIOLOGY NO: PAGE 1 Signed ReportBUN [id number] 07:02:00 Test Item Value Reference Range Interpretation Comments BLOOD UREA NITROGEN 9 MG/DL 7-17 N (test code = BUN) GLOMERULAR FILTRATION > 60 Report ing units: RATE (test code = GFR) ml/mi n/1.73 m2 (Modified MDRD Formula)Referen ce Range: > or = 6 0 ml/min/1.73 m2 CREATININE (test code 0.70 MG/DL 0.52-1.04 N = CREAT) BASIC METABOLIC [id number] 14:53:00 Test Item Value Reference Range Interpretation Comments SODIUM (test code = 142 MMOL/L 137-145 N NA) POTASSIUM (test code = 4.1 MMOL/L 3.5-5.1 N K) CHLORIDE (test code = 105 MMOL/L 98-107 N CL) CARBON DIOXIDE (test 32 MMOL/L 22-30 H code = CO2) GLUCOSE (test code = 114 MG/DL 74-106 H GLU) BLOOD UREA NITROGEN 10 MG/DL 7-17 N (test code = BUN) GLOMERULAR FILTRATION > 60 Report ing units: RATE (test code = GFR) ml/mi n/1.73 m2 (Modified MDRD Formula)Referen ce Range: > or = 6 0 ml/min/1.73 m2 CREATININE (test code 0.80 MG/DL 0.52-1.04 N = CREAT) CALCIUM (test code = 9.2 MG/DL 8.4-10.2 N CA) Comments to Computer Help Desk Specialist: draw after picc line inserted today- FLUORO GUID CTRL ACC [id number] 14:44:00 Patient Name: LEIGH FRYE Unit No: [id number] EXAMS: CPT CODE: [id number] FLUORO GUID CTRL ACC DEV 25869 EXAMINATION: NON-TUNNELED CENTRAL VENOUS CATHETER PLACEMENT. LOCATION: B2. HISTORY: Pneumonia and recent pituitary adenoma resection. SEDATION: The patient did not require conscious sedation for the procedure. RADIATION DOSE: Total reference air kerma 7.42 mGy. ANTIBIOTICS: None. Not indicated. CONTRAST: None. TECHNIQUE: The risks, benefits, and alternatives were discussedand informed consent was obtained. Prior to beginning the procedure, [place] Protocolwas used to confirm the patient's identity and planned procedure. Maximum sterile barriers including cap, mask, hand hygiene, sterile gloves, sterile gown, large sterile drape and cut aneous antisepsis were used. The skin over the [...] a dual-lumen PICC was inserted over the guide wire and through a peel-away sheath. The catheter [...] PICC placement via the right basilic vein. [facility] [place] NAME: LEIGH FRYE [id number] [address] PHYS: [place] [address] : 1980 AGE: 38 SEX: F LOC: Z.504 A PHONE #: [phone] EXAM DATE: 09/08/2018 STATUS: ADM IN FAX #: [phone] RADIOLOGY NO: PAGE 1 Signed Report (CONTINUED) Patient Name: LEIGH FRYE Unit No: [id number] EXAMS: CPT CODE: [id number] FLUORO GUID CTRL ACC DEV 01927 <Continued> PLAN: The catheter is ready for immediate use. When treatment is completed, this catheter can be removed at the bedside according to standard hospital protocol. automatic centrifugal station operator: Jacqueline Fleming PA-C. at 1444 Reported and signed by: Alireza Pepe MD CC: Technologist: ROCHELLE Umana, RT(R) Transcrpt Date/Tm/Trnsp: 09/08/2018 (1447) t.[email or web address].PR7 Orig Print D/T: S: 09/08/2018 (1945) [facility] [place] NAME: LEIGH FRYE [id number] [address] PHYS: [place] [address] :1980 AGE: 38 SEX: F LOC: Z.504 A PHONE #: [phone] EXAM DATE: 09/08/2018 STATUS: ADM IN FAX #: [phone] RADIOLOGY NO: PAGE 2 Signed Report- US GUIDANCE VASC [id number] 14:44:00 Patient Name: LEIGH FRYE Unit No: [id number] EXAMS: CPT CODE: [id number] US GUIDANCE VASC ACCESS 13220 EXAMINATION: NON- TUNNELED CENTRAL VENOUS CATHETER PLACEMENT. LOCATION: B2. HISTORY: Pneumonia and recent pituitary adenoma resection. SEDATION: The patient did not require conscious sedation for the procedure. RADIATION DOSE: Total reference air kerma 7.42 mGy. ANTIBIOTICS: None. Not indicated. CONTRAST: None. TECHNIQUE: The risks, benefits, and alternatives were discussedand informed consent was obtained. Prior to beginning the procedure, [place] Protocolwas used to confirm the patient's identity [...] PICC placement via the right basilic vein. [facility] NAME: LEIGH FRYE [address] [address] PHYS: [place] [address] : 1980 AGE: 38 SEX: F LOC: Z.504 A PHONE #: [phone] EXAM DATE: 09/08/2018 STATUS: ADM IN FAX #: [phone] RADIOLOGY NO: PAGE 1 Signed Report (CONTINUED) Patient Name: LEIGH FRYE Unit No: [id number] EXAMS: CPT CODE: [id number] US GUIDANCE VASC ACCESS 35948 <Continued> PLAN: The catheter is ready for immediate use. When treatment is completed, this catheter can be removed at the bedside according to standard hospital protocol. automatic centrifugal station operator: Jacqueline Fleming PA-C. at 1444 Reported and signed by: Alireza Pepe MD CC: Technologist: ROCHELLE Umana, RT(R) Transcrpt Date/Tm/Trnsp: 09/08/2018 (8554) [email or web address].PR7 Orig Print D/T: S: 09/08/2018 (5051) [facility] NAME: LEIGH FRYE [address] [address] PHYS: [place] [address] : 1980 AGE: 38 SEX: F LOC: Nani Mccullough PHONE #: [phone] EXAM DATE: 09/08/2018 STATUS: ADM IN FAX #: [phone] RADIOLOGY NO: PAGE 2 Signed ReportB-TYPE NATRIURETIC PEPTIDE 2018-09-08 13:13:00 Test Item Value Reference Range Interpretation Comments B-TYPE NATRIURETIC PEPTIDE (test 222.0 PG/ML 0-100 H code = BNP) [id number] 12:39:00 Test Item Value Reference Range Interpretation Comments HOMOCYSTEINE (test code 6.3 umol/L 0.0-15.0 Perf ormed At: HD = HOMOCY) [facility] [address] [id number] Kyle L MD Ph:[phone] PATIENT IS A HARD STICK. UNABLE TO GET BLOOD SAMPLE.NOTIFIED PATIENT CARE STAFF: JANET HERNANDEZON 09/06/18 AT 1427 BY DelroyLAB.ALG - VEIN FINDER USED.LENIN NOGUERA RN ADRENOCORTICOTROPIC [id number] 07:16:00 Test Item Value Reference Range Interpretation Comments ADRENOCORTICOTROPIC HORMONE 16.3 pg/mL 7.2-63.3 ACTH reference (test code = ACTH) interval for samples collected between 7 and10 AM.Performed At : [facility] [address] [place], [place] [address]Hemdv Etienne Farfan MD Ph:[phone] - XR CHEST 2 [id number] 17:42:00 Patient Name: LEIGH FRYE Unit No: [id number] EXAMS: CPT CODE: [id number] XR CHEST 2 V 12170 Chest Radiographs, 2 views. Location: Clinical Indication: 38-year-old with right lower lobe aspiration pneumonia [...] pulmonary edema or an atypical infectious process. at 1742 Reported and signed by: Ko Valles M.D. CC: Technologist: Sana Taylor RT(R) Transcrpt Date/Tm/Trnsp: 09/07/2018 (924) [email or web address].[email or web address] Orig Print D/T: S: 09/07/2018 (6128) [facility] NAME: LEIGH FRYE [address] [address] PHYS: [place] [address] : 1980 AGE: 38 SEX: F LOC: [id number] A PHONE #: [phone] EXAM DATE: 09/07/2018 STATUS: ADM IN FAX #: [phone] RADIOLOGY NO: PAGE 1 Signed ReportVANCOMYCIN [id number] 03:58:00 Test Item Value Reference Range Interpretation Comments VANCOMYCIN TROUGH (test code = 10.7 UG/ML 10.0-20.0 N VANCT) CORTISOL [id number] 12:02:00 Test Item Value Reference Range Interpretation Comments CORTISOL AM (test code = CORTAM) 19.70 ug/dL 4.46-22.7 UR 17 [id number] 07:38:00 Test Item Value Reference Range Interpretation Comments UR 17 HYDROXYCORTICOSTEROIDS MG/24HR 4.0-14.0 Hours Collected (test code = 17HCST) 24 hr T otal Volume 3500 mL Creatinine, Urine - per ytlpod13 mg/dL Creatinine, Urine - per 24h 1400 mg/d 700 - 1600 17Hydroxycortic o ster. mg/g [employer] <5.0 mg/gCR 2.0 - 6.5 17 OH-Corticostero i ds mg/day <7.0 mg/d 4.0 - 14.0 CORTISOL [id number] 19:42:00 Test Item Value Reference Range Interpretation Comments CORTISOL PM (test code = CORTPM) 9.97 mcg/dL 3.09-16.66 N [id number] 13:04:00 Test Item Value Reference Range Interpretation Comments VANCOMYCIN (test code = VANCO) 10.6 mcg/ML 5.0-26.0 N BASIC METABOLIC [id number] 08:39:00 Test Item Value Reference Range Interpretation Comments SODIUM (test code = 142 MMOL/L 137-145 N NA) POTASSIUM (test code = 3.5 MMOL/L 3.5-5.1 N K) CHLORIDE (test code = 106 MMOL/L 98-107 N CL) CARBON DIOXIDE (test 27 MMOL/L 22-30 N code = CO2) GLUCOSE (test code = 125 MG/DL 74-106 H GLU) BLOOD UREA NITROGEN 9 MG/DL 7-17 N (test code = BUN) GLOMERULAR FILTRATION > 60 Report ing units: RATE (test code = GFR) ml/mi n/1.73 m2 (Modified MDRD Formula)Referen ce Range: > or = 6 0 ml/min/1.73 m2 CREATININE (test code 0.70 MG/DL 0.52-1.04 N = CREAT) CALCIUM (test code = 8.8 MG/DL 8.4-10.2 N CA) [id number] 08:39:00 Test Item Value Reference Range Interpretation Comments MAGNESIUM (test code = MAG) 1.9 MG/DL 1.6-2.3 N HGB [id number] 08:35:00 Test Item Value Reference Range Interpretation Comments HEMOGLOBIN (test code = HGB) 7.5 G/DL 11.2-14.9 L HEMATOCRIT (test code = HCT) 24.7 % 33.2-43.5 L WHITE BLOOD [id number] 08:35:00 Test Item Value Reference Range Interpretation Comments WHITE BLOOD CELL (test code = WBC) 5.7 K/MM3 3.8-9.8 N UR 17 KETOGENIC [id number] 08:13:00 Test Item Value Reference Interpretation Comments Range UR 17 KETOGENIC mg/24 hr 3.0-15.0 Cortisol, Ur inary Free STEROIDS (test Cortisol,F,ug /L,U A 59 ug/L code = 17KETGU) Undefi keanu Cortisol,F,ug/2 4hr,U 136 High ug/24 hr 6 - 42 Comments:A This test was developed and i ts performancechar acteristics determined by[facility]. It has not been cleare d or approved by the Food andDru gAdministration. ADRENOCORTICOTROPIC [id number] 07:27:00 Test Item Value Reference Range Interpretation Comments ADRENOCORTICOTROPIC HORMONE 8.5 pg/mL 7.2-63.3 ACTH reference (test code = ACTH) interval for samples collect ed between 7 and10 AM.Performed At : [facility] [address] [place], [place] [id number] yovany Farfan MD Ph:[phone] PROCALCITONIN (PCT)2018-09-05 06:48:00 Test Item Value Reference Range Interpretation Comments PROCALCITONIN (PCT) < 0.05 NG/ML PROCALCI TONIN (PCT) (test code = PROCAL) NORMAL RANGE (ADULT):<0.05 N G/ML. - a concentratio n < 0.5 ng/mL represent s a low risk ofsevere s epsis and/or septic s hock. - a concentratio n > 2 ng/mL represent s a high risk ofsev ere sepsis and/or s eptic shock. Neverth eless, concentrations < 0.5 ng/mL do not ex clude aninfection, on account of loca lized infections (withoutsystemi c signs) which ca n be associated with such lowconcentratio ns, or a systemic infe ction in its initials tages (< 6 hours). Furthermore, in creased procalcitoninca n occur without infecti on. PCT concentrations between 0.5and 2.0 ng/ mL should be inter preted taking into acc ount thepatient's hi story. It is recommend ed to retest PCT with in 6-24 hours if any concentrations < 2 ng/mL are obtai keanu. CORTISOL [id number] 06:28:00 Test Item Value Reference Range Interpretation Comments CORTISOL AM (test code = CORTAM) 5.71 ug/dL 4.46-22.7 VANCOMYCIN [id number] 05:58:00 Test Item Value Reference Range Interpretation Comments VANCOMYCIN TROUGH (test code = 20.8 UG/ML 10.0-20.0 H VANCT) CORTISOL [id number] 17:52:00 Test Item Value Reference Range Interpretation Comments CORTISOL PM (test code = CORTPM) 11.10 mcg/dL 3.09-16.66 B-TYPE NATRIURETIC [id number] 10:19:00 Test Item Value Reference Range Interpretation Comments B-TYPE NATRIURETIC PEPTIDE (test 151.0 PG/ML 0-100 H code = BNP) Comments to Computer Help Desk Specialist: add on to blood in labPROCALCITONIN (PCT)2018-09-04 09:27:00 Test Item Value Reference Range Interpretation Comments PROCALCITONIN (PCT) < 0.05 NG/ML PROCALCI TONIN (PCT) (test code = PROCAL) NORMAL RANGE (ADULT):<0.05 N G/ML. - a concentratio n < 0.5 ng/mL represent s a low risk ofsevere s epsis and/or septic s hock. - a concentratio n > 2 ng/mL represent s a high risk ofsev ere sepsis and/or s eptic shock. Neverth eless, concentrations < 0.5 ng/mL do not ex clude aninfection, on account of loca lized infections (withoutsystemi c signs) which ca n be associated with such lowconcentratio ns, or a systemic infe ction in its initials tages (< 6 hours). Furthermore, in creased procalcitoninca n occur without infecti on. PCT concentrations between 0.5and 2.0 ng/ mL should be inter preted taking into acc ount thepatient's hi story. It is recommend ed to retest PCT with in 6-24 hours if any concentrations < 2 ng/mL are obtai keanu. Comments to Computer Help Desk Specialist: add on to blood in [id number] 09:10:00 Test Item Value Reference Range Interpretation Comments TROPONIN-I (test code = TROPI) < 0.012 NG/ML 0.012-0.033 L LACTIC [id number] 09:02:00 Test Item Value Reference Range Interpretation Comments LACTIC ACID (test code = LACT) 0.9 MMOL/L 0.7-2.1 N CBC W/AUTO [id number] 07:29:00 Test Item Value Reference Range Interpretation Comments WHITE BLOOD CELL (test code = 6.8 K/MM3 3.8-9.8 N WBC) RED BLOOD CELL (test code = 3.51 M/MM3 3.58-4.97 L RBC) HEMOGLOBIN (test code = HGB) 8.0 G/DL 11.2-14.9 L HEMATOCRIT (test code = HCT) 26.9 % 33.2-43.5 L MEAN CELL VOLUME (test code = 77 fL 80.7-99.1 L MCV) MEAN CELL HGB (test code = MCH) 22.8 pg 27.0-34.1 L MEAN CELL HGB CONCETRATION 29.7 % 32.2-35.7 L (test code = MCHC) RED CELL DISTRIBUTION WIDTH 21.2 % 12.1-15.2 H (test code = RDW) PLATELET COUNT (test code = 235 K/MM3 129-368 N PLT) MEAN PLATELET VOLUME (test code 9.4 fl 7.4-10.4 N = MPV) NEUTROPHIL % (test code = NT%) 65.8 % 43-75 N IMMATURE GRANULOCYTE % (test 0.4 % 0.0-2.0 N code = IG%) LYMPHOCYTE % (test code = LY%) 27.2 % 14-44 N MONOCYTE % (test code = MO%) 4.0 % 4-13 N EOSINOPHIL % (test code = EO%) 2.5 % 0-6 N BASOPHIL % (test code = BA%) 0.1 % 0-2 N NUCLEATED RBC % (test code = 0.0 % 0-1.0 N NRBC%) NEUTROPHIL # (test code = NT#) 4.46 K/mm3 2.0-7.6 N IMMATURE GRANULOCYTE # (test 0.03 x10 3/uL 0-0.03 N code = IG#) LYMPHOCYTE # (test code = LY#) 1.85 K/mm3 1.0-3.8 N MONOCYTE # (test code = MO#) 0.27 K/mm3 0.1-0.8 N EOSINOPHIL # (test code = EO#) 0.17 K/mm3 0.0-0.2 N BASOPHIL # (test code = BA#) 0.01 K/mm3 0.0-0.2 N NUCLEATED RBC # (test code = 0.00 K/mm3 0.0-0.1 N NRBC#) DIFFERENTIAL [id number] 07:29:00 Test Item Value Reference Range Interpretation Comments RBC MORPHOLOGY REQUIRED (test code = ABNORMAL RBCM) ANISOCYTOSIS (test code = ANISO) MODERATE NONE MICROCYTOSIS (test code = MICR) FEW NONE OVALOCYTES (test code = OVAL) FEW NONE PLATELET ESTIMATE (test code = ADEQUATE ADEQUATE PLTEST) PLATELET MORPHOLOGY (test code = NORMAL NORMAL PLTMORPH) PROCALCITONIN (PCT)2018-09-04 06:37:00 Test Item Value Reference Range Interpretation Comments PROCALCITONIN (PCT) < 0.05 NG/ML PROCALCI TONIN (PCT) (test code = PROCAL) NORMAL RANGE (ADULT):<0.05 N G/ML. - a concentratio n < 0.5 ng/mL represent s a low risk ofsevere s epsis and/or septic s hock. - a concentratio n > 2 ng/mL represent s a high risk ofsev ere sepsis and/or s eptic shock. Neverth eless, concentrations < 0.5 ng/mL do not ex clude aninfection, on account of loca lized infections (withoutsystemi c signs) which ca n be associated with such lowconcentratio ns, or a systemic infe ction in its initials tomeka (< 6 hours). Furthermore, in creased procalcitoninca n occur without infecti on. PCT concentrations between 0.5and 2.0 ng/ mL should be inter preted taking into acc ount thepatient's hi story. It is recommend ed to retest PCT with in 6-24 hours if any concentrations < 2 ng/mL are obtai keanu. - CTA CHEST FOR [id number] 06:14:00 Patient Name: LEIGH FRYE Unit No: [id number] EXAMS: CPT CODE: [id number] [place] [address] DICTATION LOCATION: 8 HISTORY: Female, 38 years of age with [...] upper lobe and right middle lobe. Mild int erstitial opacities are seen in both lower lobes [...] pneumonia versus superimposed edema. 5. 2.5 cm low-density nodule right thyroid, possibly originating from the thyroid gland or parathyroid. Please see ultrasound of neck performed 08/28/2018. at 0614 Reported and signed by: Deanne Boyer MD [facility] NAME: LEIGH FRYE Js PHYS: Bear [place] [address] : 1980 AGE: 38 SEX: F LOC: Z.SI08 A PHONE #: [phone] EXAM DATE: 09/04/2018 STATUS: ADM IN FAX #: [phone] RAD #: D/C DT PAGE 1 Signed Report (CONTINUED) Patient Name: LEIGH FRYE Unit No: [id number] EXAMS: CPT CODE: [id number] [place] [address] <Continued> CC: Bear Wells MD Technologist: URIEL BARTON RT(R)(CT)(MR) CTDI: DLP: Trnscrpt: 09/04/2018 (0614) t.SDR.CLW [facility] NAME: LEIGH FRYEINE Ramon Js PHYS: [place] [address] : 1980 AGE: 38 SEX: F LOC: Z.SI08 A PHONE #: [phone] EXAM DATE: 09/04/2018 STATUS: ADM IN FAX #: [phone] RAD #: D/C DTPAGE 2 Signed Report Patient Name: LEIGH FRYE Unit No: [id number] EXAMS:CPT CODE: [id number] [place] [address] <Continu ed> Orig Print D/T: S: 09/04/2018 (0838) [facility] NAME: LEIGH FRYEINE Ramon [place] PHYS: Bear Lagunas MD [place] [id number] : 1980 AGE: 38 SEX: F LOC: Z.SI08 A PHONE #: [phone] EXAM DATE: 09/04/2018 STATUS: ADM IN FAX #: [phone] RAD #: D/C DT PAGE 3 Signed ReportGLUCOSE BEDSIDE [id number] 06:09:00 Test Item Value Reference Range Interpretation Comments GLUCOSE BEDSIDE TESTING (test code = 99 MG/DL 60-99 N GLUBED) CORTISOL [id number] 06:04:00 Test Item Value Reference Range Interpretation Comments CORTISOL AM (test code = CORTAM) 3.62 ug/dL 4.46-22.7 L BASIC METABOLIC [id number] 05:38:00 Test Item Value Reference Range Interpretation Comments SODIUM (test code = 140 MMOL/L 137-145 N NA) POTASSIUM (test code = 4.1 MMOL/L 3.5-5.1 N K) CHLORIDE (test code = 105 MMOL/L 98-107 N CL) CARBON DIOXIDE (test 30 MMOL/L 22-30 N code = CO2) ANION GAP (test code = 9 MMOL/L 14-24 L GAP) GLUCOSE (test code = 121 MG/DL 74-106 H GLU) BLOOD UREA NITROGEN 14 MG/DL 7-17 N (test code = BUN) GLOMERULAR FILTRATION > 60 Report ing units: RATE (test code = GFR) ml/mi n/1.73 m2 (Modified MDRD Formula)Referen ce Range: > or = 6 0 ml/min/1.73 m2 CREATININE (test code 0.60 MG/DL 0.52-1.04 N = CREAT) CALCIUM (test code = 9.0 MG/DL 8.4-10.2 N CA) HEPATIC FUNCTION [id number] 05:38:00 Test Item Value Reference Range Interpretation Comments TOTAL PROTEIN (test code = PROT) 6.4 G/DL 6.3-8.2 N ALBUMIN (test code = ALB) 3.0 G/DL 3.5-5.0 L BILIRUBIN TOTAL (test code = 0.1 MG/DL 0.2-1.3 L BILT) BILIRUBIN DIRECT (test code = 0.0 MG/DL 0.0-0.3 N BILD) SGOT/AST (test code = AST) 33 UNITS/L 14-36 N SGPT/ALT (test code = ALT) 34 UNITS/L 9-52 N ALKALINE PHOSPHATASE (test code = 114 UNITS/L 38-126 N ALKP) [id number] 05:38:00 Test Item Value Reference Range Interpretation Comments MAGNESIUM (test code = MAG) 2.0 MG/DL 1.6-2.3 N [id number] 05:38:00 Test Item Value Reference Range Interpretation Comments TROPONIN-I (test code = TROPI) < 0.012 NG/ML 0.012-0.033 L LACTIC [id number] 05:33:00 Test Item Value Reference Range Interpretation Comments LACTIC ACID (test code = LACT) 1.2 MMOL/L 0.7-2.1 N BASIC METABOLIC [id number] 05:33:00 Test Item Value Reference Range Interpretation Comments SODIUM (test code = 140 MMOL/L 137-145 N NA) POTASSIUM (test code = 4.1 MMOL/L 3.5-5.1 N K) CHLORIDE (test code = 105 MMOL/L 98-107 N CL) CARBON DIOXIDE (test 30 MMOL/L 22-30 N code = CO2) ANION GAP (test code = 9 MMOL/L 14-24 L GAP) GLUCOSE (test code = 121 MG/DL 74-106 H GLU) BLOOD UREA NITROGEN 14 MG/DL 7-17 N (test code = BUN) GLOMERULAR FILTRATION > 60 Report ing units: RATE (test code = GFR) ml/mi n/1.73 m2 (Modified MDRD Formula)Referen ce Range: > or = 6 0 ml/min/1.73 m2 CREATININE (test code 0.60 MG/DL 0.52-1.04 N = CREAT) CALCIUM (test code = 9.0 MG/DL 8.4-10.2 N CA) HEPATIC FUNCTION [id number] 05:33:00 Test Item Value Reference Range Interpretation Comments TOTAL PROTEIN (test code = PROT) 6.4 G/DL 6.3-8.2 N ALBUMIN (test code = ALB) 3.0 G/DL 3.5-5.0 L BILIRUBIN TOTAL (test code = 0.1 MG/DL 0.2-1.3 L BILT) BILIRUBIN DIRECT (test code = 0.0 MG/DL 0.0-0.3 N BILD) SGOT/AST (test code = AST) 33 UNITS/L 14-36 N SGPT/ALT (test code = ALT) 34 UNITS/L 9-52 N ALKALINE PHOSPHATASE (test code = 114 UNITS/L 38-126 N ALKP) [id number] 05:33:00 Test Item Value Reference Range Interpretation Comments MAGNESIUM (test code = MAG) 2.0 MG/DL 1.6-2.3 N [id number] 05:33:00 Test Item Value Reference Range Interpretation Comments TROPONIN-I (test code = TROPI) NG/ML 0.0-0.045 PROTHROMBIN [id number] 05:27:00 Test Item Value Reference Range Interpretation Comments PROTHROMBIN TIME 10.3 SECONDS 9.6-11.6 N PATIENT (test code = PTP) INTERNATIONAL NORMAL 1.0 0.8-1.1 N The INR is to be RATIO (test code = used only for INR) monitoring oral anticoagulantth erap y. INDICATION I NR VALUE ---- ---- ---- -------1. Prophylaxis, de ep venous thrombos is, including hig h risk surgery. 2.0 - 3.0 2. Prophylaxis, de ep venous thrombos is, hip surgery, treatment for d eep venous thrombosis or pulmonary prevention of systemic emboli sm in patients wit h valvular heart disease, atrial fibrillation, tissue heart va lve, or acute myocar dial infarction. 2.0 - 3 .0 3. Mechanical prosthesis hear t valves, recurrent syste donovan embolism. 3.0 - 4.5 PTT [id number] 05:27:00 Test Item Value Reference Range Interpretation Comments PTT ACTIVATED (test code = APTT) 27.5 SECONDS 22.0-33.0 N CBC W/AUTO [id number] 05:10:00 Test Item Value Reference Range Interpretation Comments WHITE BLOOD CELL (test code = 6.8 K/MM3 3.8-9.8 N WBC) RED BLOOD CELL (test code = 3.51 M/MM3 3.58-4.97 L RBC) HEMOGLOBIN (test code = HGB) 8.0 G/DL 11.2-14.9 L HEMATOCRIT (test code = HCT) 26.9 % 33.2-43.5 L MEAN CELL VOLUME (test code = 77 fL 80.7-99.1 L MCV) MEAN CELL HGB (test code = MCH) 22.8 pg 27.0-34.1 L MEAN CELL HGB CONCETRATION 29.7 % 32.2-35.7 L (test code = MCHC) RED CELL DISTRIBUTION WIDTH 21.2 % 12.1-15.2 H (test code = RDW) PLATELET COUNT (test code = 235 K/MM3 129-368 N PLT) MEAN PLATELET VOLUME (test code 9.4 fl 7.4-10.4 N = MPV) NEUTROPHIL % (test code = NT%) 65.8 % 43-75 N IMMATURE GRANULOCYTE % (test 0.4 % 0.0-2.0 N code = IG%) LYMPHOCYTE % (test code = LY%) 27.2 % 14-44 N MONOCYTE % (test code = MO%) 4.0 % 4-13 N EOSINOPHIL % (test code = EO%) 2.5 % 0-6 N BASOPHIL % (test code = BA%) 0.1 % 0-2 N NUCLEATED RBC % (test code = 0.0 % 0-1.0 N NRBC%) NEUTROPHIL # (test code = NT#) 4.46 K/mm3 2.0-7.6 N IMMATURE GRANULOCYTE # (test 0.03 x10 3/uL 0-0.03 N code = IG#) LYMPHOCYTE # (test code = LY#) 1.85 K/mm3 1.0-3.8 N MONOCYTE # (test code = MO#) 0.27 K/mm3 0.1-0.8 N EOSINOPHIL # (test code = EO#) 0.17 K/mm3 0.0-0.2 N BASOPHIL # (test code = BA#) 0.01 K/mm3 0.0-0.2 N NUCLEATED RBC # (test code = 0.00 K/mm3 0.0-0.1 N NRBC#) DIFFERENTIAL [id number] 05:10:00 Test Item Value Reference Range Interpretation Comments RBC MORPHOLOGY REQUIRED (test code = RBCM) PLATELET ESTIMATE (test code = PLTEST) ADEQUATE PLATELET MORPHOLOGY (test code = NORMAL PLTMORPH) CBC W/AUTO [id number] 05:10:00 Test Item Value Reference Range Interpretation Comments WHITE BLOOD CELL (test code = 6.8 K/MM3 3.8-9.8 N WBC) RED BLOOD CELL (test code = 3.51 M/MM3 3.58-4.97 L RBC) HEMOGLOBIN (test code = HGB) 8.0 G/DL 11.2-14.9 L HEMATOCRIT (test code = HCT) 26.9 % 33.2-43.5 L MEAN CELL VOLUME (test code = 77 fL 80.7-99.1 L MCV) MEAN CELL HGB (test code = MCH) 22.8 pg 27.0-34.1 L MEAN CELL HGB CONCETRATION 29.7 % 32.2-35.7 L (test code = MCHC) RED CELL DISTRIBUTION WIDTH 21.2 % 12.1-15.2 H (test code = RDW) PLATELET COUNT (test code = 235 K/MM3 129-368 N PLT) MEAN PLATELET VOLUME (test code 9.4 fl 7.4-10.4 N = MPV) NEUTROPHIL % (test code = NT%) 65.8 % 43-75 N IMMATURE GRANULOCYTE % (test 0.4 % 0.0-2.0 N code = IG%) LYMPHOCYTE % (test code = LY%) 27.2 % 14-44 N MONOCYTE % (test code = MO%) 4.0 % 4-13 N EOSINOPHIL % (test code = EO%) 2.5 % 0-6 N BASOPHIL % (test code = BA%) 0.1 % 0-2 N NUCLEATED RBC % (test code = 0.0 % 0-1.0 N NRBC%) NEUTROPHIL # (test code = NT#) 4.46 K/mm3 2.0-7.6 N IMMATURE GRANULOCYTE # (test 0.03 x10 3/uL 0-0.03 N code = IG#) LYMPHOCYTE # (test code = LY#) 1.85 K/mm3 1.0-3.8 N MONOCYTE # (test code = MO#) 0.27 K/mm3 0.1-0.8 N EOSINOPHIL # (test code = EO#) 0.17 K/mm3 0.0-0.2 N BASOPHIL # (test code = BA#) 0.01 K/mm3 0.0-0.2 N NUCLEATED RBC # (test code = 0.00 K/mm3 0.0-0.1 N NRBC#) DIFFERENTIAL [id number] 05:10:00 Test Item Value Reference Range Interpretation Comments RBC MORPHOLOGY REQUIRED (test code = RBCM) PLATELET ESTIMATE (test code = PLTEST) ADEQUATE PLATELET MORPHOLOGY (test code = NORMAL PLTMORPH) - XR CHEST [id number] 04:59:00 Patient Name: LEIGH FRYE Unit No: [id number] EXAMS: CPT CODE: [id number] XR CHEST 1V 72712 EXAM: - XR CHEST 1V Location code:C3 [...] Francesco Covarrubias, RT(R) Transcrpt Date/Tm/Trnsp: 09/04/2018 (0459) [email or web address] Orig Print D/T: S: 09/04/2018 (0502) [facility] NAME: LEIGH FRYE [address] [address] PHYS: [place] [address] : 1980 AGE: 38 SEX: F LOC: Z.531 A PHONE #: [phone] EXAM DATE: 09/04/2018 STATUS: ADM IN FAX #: [phone] RADIOLOGY NO: PAGE 1 Signed ReportPOC ARTERIAL BLOOD GAS 2018-09-04 04:48:00 Test Item Value Reference Range Interpretation Comments POC ARTERIAL BLOOD GAS PH 7.392 7.35-7.45 N (test code = POCPHA) POC ARTERIAL BLOOD GAS PCO2 46.8 mmHg 35.0-45.0 H (test code = WKDUDL2Y) POC ARTERIAL BLOOD GAS PO2 95 75.0-100.0 N (test code = YBSIX2B) POC HCO3 ARTERIAL (test code 28.4 MMOL/L 20.0-26.0 HH = [id number]) POC BASE EXCESS (test code = 4.0 MMOL/L -3.0-3.0 H POCBEA) POC O2 SATURATION (test code 97 % 92.0-98.5 N = POCO2S) FIO2 (test code = FIO2A) 100 % 21-100 N ABG DELIVERY (test code = NonRb Mask KIRILL) ABG SITE (test code = SITEA) L Brachial ALLENS TEST (test code = N/A CHECK Ntfd/RBV~ ALLENS) CBC W/AUTO [id number] 12:05:00 Test Item Value Reference Range Interpretation Comments WHITE BLOOD CELL (test code = 6.8 K/MM3 3.8-9.8 N WBC) RED BLOOD CELL (test code = 3.33 M/MM3 3.58-4.97 L RBC) HEMOGLOBIN (test code = HGB) 7.5 G/DL 11.2-14.9 L HEMATOCRIT (test code = HCT) 25.5 % 33.2-43.5 L MEAN CELL VOLUME (test code = 77 fL 80.7-99.1 L MCV) MEAN CELL HGB (test code = MCH) 22.5 pg 27.0-34.1 L MEAN CELL HGB CONCETRATION 29.4 % 32.2-35.7 L (test code = MCHC) RED CELL DISTRIBUTION WIDTH 20.5 % 12.1-15.2 H (test code = RDW) PLATELET COUNT (test code = 245 K/MM3 129-368 N PLT) MEAN PLATELET VOLUME (test code 9.7 fl 7.4-10.4 N = MPV) NEUTROPHIL % (test code = NT%) 57.8 % 43-75 N IMMATURE GRANULOCYTE % (test 0.6 % 0.0-2.0 N code = IG%) LYMPHOCYTE % (test code = LY%) 33.8 % 14-44 N MONOCYTE % (test code = MO%) 4.8 % 4-13 N EOSINOPHIL % (test code = EO%) 2.9 % 0-6 N BASOPHIL % (test code = BA%) 0.1 % 0-2 N NUCLEATED RBC % (test code = 0.0 % 0-1.0 N NRBC%) NEUTROPHIL # (test code = NT#) 3.95 K/mm3 2.0-7.6 N IMMATURE GRANULOCYTE # (test 0.04 x10 3/uL 0-0.03 H code = IG#) LYMPHOCYTE # (test code = LY#) 2.31 K/mm3 1.0-3.8 N MONOCYTE # (test code = MO#) 0.33 K/mm3 0.1-0.8 N EOSINOPHIL # (test code = EO#) 0.20 K/mm3 0.0-0.2 N BASOPHIL # (test code = BA#) 0.01 K/mm3 0.0-0.2 N NUCLEATED RBC # (test code = 0.00 K/mm3 0.0-0.1 N NRBC#) DIFFERENTIAL [id number] 12:05:00 Test Item Value Reference Range Interpretation Comments RBC MORPHOLOGY REQUIRED (test code = ABNORMAL RBCM) ANISOCYTOSIS (test code = ANISO) SLIGHT NONE ELLIPTOCYTES (test code = ELL) FEW NONE OVALOCYTES (test code = OVAL) MODERATE NONE PLATELET ESTIMATE (test code = ADEQ ADEQUATE PLTEST) PLATELET MORPHOLOGY (test code = NORMAL NORMAL PLTMORPH) CORTISOL [id number] 07:11:00 Test Item Value Reference Range Interpretation Comments CORTISOL AM (test code = CORTAM) 1.20 ug/dL 4.46-22.7 L CORTISOL [id number] 07:11:00 Test Item Value Reference Range Interpretation Comments CORTISOL PM (test code = CORTPM) 1.20 mcg/dL 3.09-16.66 L BASIC METABOLIC [id number] 06:39:00 Test Item Value Reference Range Interpretation Comments SODIUM (test code = 141 MMOL/L 137-145 N NA) POTASSIUM (test code = 4.1 MMOL/L 3.5-5.1 N K) CHLORIDE (test code = 107 MMOL/L 98-107 N CL) CARBON DIOXIDE (test 29 MMOL/L 22-30 N code = CO2) GLUCOSE (test code = 99 MG/DL 74-106 N GLU) BLOOD UREA NITROGEN 14 MG/DL 7-17 N (test code = BUN) GLOMERULAR FILTRATION > 60 Report ing units: RATE (test code = GFR) ml/mi n/1.73 m2 (Modified MDRD Formula)Referen ce Range: > or = 6 0 ml/min/1.73 m2 CREATININE (test code 0.60 MG/DL 0.52-1.04 N = CREAT) CALCIUM (test code = 9.1 MG/DL 8.4-10.2 N CA) CBC W/AUTO [id number] 06:30:00 Test Item Value Reference Range Interpretation Comments WHITE BLOOD CELL (test code = 6.8 K/MM3 3.8-9.8 N WBC) RED BLOOD CELL (test code = 3.33 M/MM3 3.58-4.97 L RBC) HEMOGLOBIN (test code = HGB) 7.5 G/DL 11.2-14.9 L HEMATOCRIT (test code = HCT) 25.5 % 33.2-43.5 L MEAN CELL VOLUME (test code = 77 fL 80.7-99.1 L MCV) MEAN CELL HGB (test code = MCH) 22.5 pg 27.0-34.1 L MEAN CELL HGB CONCETRATION 29.4 % 32.2-35.7 L (test code = MCHC) RED CELL DISTRIBUTION WIDTH 20.5 % 12.1-15.2 H (test code = RDW) PLATELET COUNT (test code = 245 K/MM3 129-368 N PLT) MEAN PLATELET VOLUME (test code 9.7 fl 7.4-10.4 N = MPV) NEUTROPHIL % (test code = NT%) 57.8 % 43-75 N IMMATURE GRANULOCYTE % (test 0.6 % 0.0-2.0 N code = IG%) LYMPHOCYTE % (test code = LY%) 33.8 % 14-44 N MONOCYTE % (test code = MO%) 4.8 % 4-13 N EOSINOPHIL % (test code = EO%) 2.9 % 0-6 N BASOPHIL % (test code = BA%) 0.1 % 0-2 N NUCLEATED RBC % (test code = 0.0 % 0-1.0 N NRBC%) NEUTROPHIL # (test code = NT#) 3.95 K/mm3 2.0-7.6 N IMMATURE GRANULOCYTE # (test 0.04 x10 3/uL 0-0.03 H code = IG#) LYMPHOCYTE # (test code = LY#) 2.31 K/mm3 1.0-3.8 N MONOCYTE # (test code = MO#) 0.33 K/mm3 0.1-0.8 N EOSINOPHIL # (test code = EO#) 0.20 K/mm3 0.0-0.2 N BASOPHIL # (test code = BA#) 0.01 K/mm3 0.0-0.2 N NUCLEATED RBC # (test code = 0.00 K/mm3 0.0-0.1 N NRBC#) DIFFERENTIAL [id number] 06:30:00 Test Item Value Reference Range Interpretation Comments RBC MORPHOLOGY REQUIRED (test code = RBCM) PLATELET ESTIMATE (test code = PLTEST) ADEQUATE PLATELET MORPHOLOGY (test code = NORMAL PLTMORPH) CBC W/AUTO [id number] 06:30:00 Test Item Value Reference Range Interpretation Comments WHITE BLOOD CELL (test code = 6.8 K/MM3 3.8-9.8 N WBC) RED BLOOD CELL (test code = 3.33 M/MM3 3.58-4.97 L RBC) HEMOGLOBIN (test code = HGB) 7.5 G/DL 11.2-14.9 L HEMATOCRIT (test code = HCT) 25.5 % 33.2-43.5 L MEAN CELL VOLUME (test code = 77 fL 80.7-99.1 L MCV) MEAN CELL HGB (test code = MCH) 22.5 pg 27.0-34.1 L MEAN CELL HGB CONCETRATION 29.4 % 32.2-35.7 L (test code = MCHC) RED CELL DISTRIBUTION WIDTH 20.5 % 12.1-15.2 H (test code = RDW) PLATELET COUNT (test code = 245 K/MM3 129-368 N PLT) MEAN PLATELET VOLUME (test code 9.7 fl 7.4-10.4 N = MPV) NEUTROPHIL % (test code = NT%) 57.8 % 43-75 N IMMATURE GRANULOCYTE % (test 0.6 % 0.0-2.0 N code = IG%) LYMPHOCYTE % (test code = LY%) 33.8 % 14-44 N MONOCYTE % (test code = MO%) 4.8 % 4-13 N EOSINOPHIL % (test code = EO%) 2.9 % 0-6 N BASOPHIL % (test code = BA%) 0.1 % 0-2 N NUCLEATED RBC % (test code = 0.0 % 0-1.0 N NRBC%) NEUTROPHIL # (test code = NT#) 3.95 K/mm3 2.0-7.6 N IMMATURE GRANULOCYTE # (test 0.04 x10 3/uL 0-0.03 H code = IG#) LYMPHOCYTE # (test code = LY#) 2.31 K/mm3 1.0-3.8 N MONOCYTE # (test code = MO#) 0.33 K/mm3 0.1-0.8 N EOSINOPHIL # (test code = EO#) 0.20 K/mm3 0.0-0.2 N BASOPHIL # (test code = BA#) 0.01 K/mm3 0.0-0.2 N NUCLEATED RBC # (test code = 0.00 K/mm3 0.0-0.1 N NRBC#) DIFFERENTIAL [id number] 06:30:00 Test Item Value Reference Range Interpretation Comments RBC MORPHOLOGY REQUIRED (test code = RBCM) PLATELET ESTIMATE (test code = PLTEST) ADEQUATE PLATELET MORPHOLOGY (test code = NORMAL PLTMORPH) UA SPECIFIC [id number] 23:35:00 Test Item Value Reference Range Interpretation Comments UA SPECIFIC GRAVITY (test code = SGU) 1.025 1.003-1.030 N [id number] 23:22:00 Test Item Value Reference Range Interpretation Comments CORTISOL (test code = CORTR) 1.65 ug/dL 1.7-22.7 L [id number] 22:53:00 Test Item Value Reference Range Interpretation Comments SODIUM (test code = NA) 143 MMOL/L 137-145 N [id number] 17:47:00 Test Item Value Reference Range Interpretation Comments CORTISOL (test code = CORTR) 5.32 ug/dL 1.7-22.7 [id number] 17:06:00 Test Item Value Reference Range Interpretation Comments SODIUM (test code = NA) 144 MMOL/L 137-145 N UR CATECHOLAMINE [id number] 12:47:00 Test Item Value Reference Interpretation Comments Range UR EPINEPHRINE < 1 ug/L Undefined This test was developed and (test code = EPINU) its perf ormance characteristics determined by [facility]. It has not been cleared orappro angela by the Food and Drug A dministration. UR EPINEPHRINE 24H <4 ug/24 0-20 (test code = hr EPINU24) UR NOREPINEPHRINE 34 ug/L Undefined This test was developed and (test code = its performance NOREPU) characteristics determined by [facility]. It has not been cleared orappro angela by the Food and Drug A dministration. UR TOTAL 131 ug/24 0-135 EPI/NOREPINEPHRIN hr (test code = EPINOREPIU) UR DOPAMINE (test 110 ug/L Undefined This test was developed and code = DOPAU) its performanc e characteristics determined by [facility]. It has not been cleared orappro angela by the Food and Drug A dministration. UR DOPAMINE 24H 424 ug/24 0-510 Performed At : [facility] (test code = hr [id number] DOPAU24) [place], [place] [id number] ra Kristen VELASCO Ph:[phone] VENOUS THROMBOPHILIA [id number] 07:49:00 Test Item Value Reference Range Interpretation Comments MISC COAG Venous Thrombos is Profile (test code = Homocysteine 12 .3 umol/L MISCCOAG) Homocysteine le vels in patients >60 years incre ase 1-2umol/L.Refer ence Range:5.0 - 15.0 Factor VII I Activity 302 High % FVIII activit y can increase in a variety of clin icalsituations including elton l , in samples drawn f rompatients (particularly berta otto) who are visibly stresse d atthe time of phlebotomy, as acute phase reactants, or i nresponse to certain drug th erapies such as DDAVP.Persisten tly elevated FVIII activity is a r isk factor forvenous throm bosis as well as recurrence of v enousthrombosis. Risk is graded and increases with the degree ofel evation. Although elevated FVIII activity has beenidentified to cluster within families, a gen etic basis forthe elevation has n ot yet been elucidated (Br J Haematol.2012; 157:653-663).Re ference Range:57 - 163 Antithrombi n Activity, Ceclvc449 % Dir ect oral anticoagulants such as rivaroxaban, ap ixaban andedoxaban will lead to sp uriously elevated antithrombinact ivity levels possibly maskin g a deficiency.Refe rence Range:7 months and olde r: 75 - 135 Prt C Activity (Chrom ogenic) 165 % Reference Range :17 years and older: 73 - 180 Protein S Antigen, Free 110 % Refe rence Range:7 months and olde r: 57 - 157This test was augusta costa and its performance characteristics determined by [employer]. It has not been cleared or approvedby t Food and Drug Administration. APTT 23.1 sec This test has not be en validated for monitoringunfra ctionated heparin therapy. aPTT-b ased therapeuticrang es for unfractionated heparin therapy have not beenes tablished. Consider ordering Hepari n anti-Xa(unfract ionated).Reference Range:18 years and older: 22.9 - 30.2APTT 1:1 ACCOUNTS SPECIALIST Testing Not Indicated Not i ndicatedAPTT 1:1 SalineTesting N ot Indicated Not indicatedLAC In terpretation A lupus anticoagu lant is not detected. All antiphospholipi dantibodies evaluated are n ormal. As antibody titers mayfluct uate with time, repeat testing may be indicated.Pleas e contact [facility] if furtherclarific ation is needed. Act. Prt C Resi st w/FV Defic.1.7 Low ratio A low activated protein C resistance (A PCR) is a risk factorfor venou s thrombosis and is a screen for th e Factor VLeiden mutation. Consi joaquín molecular analysis for th ismutation. Other causes for abno rmal APCR are uncommon andinc lude other rare mutations in th e Factor V molecule,pregna ncy and certain drug therapies, including thalidomidether apy, presence of a lupus anticoagu lant, increased FactorVIII leve ls, and autoantibodies against activated protein C.Refer ence Range:2.2 - 3.5 DRVVT Scree n Seconds 38.2 sec Reference Range :<= 47.0DRVVT Confirm Seconds Testing Not Indicated Not i ndicatedDRVVT RatioTesting No t Indicated Not indicated Hexag onal Phospholipid Neutral8 sec Th is value is NEGATIVE.This i s a qualitative assay and is th erefore reported aspositive for lupus anticoagulant or negative. Th equantitative value is provided as an aid in diagnosis.Refer ence Range:0 - 11 Anticardiolipin Ab, IgG <10 GPLReference Ra nge:Negative: <15Indeterminat e: 15 - 20Low to medium positive : >20 - 80High positive: >80An ticardiolipin Ab, IgM <10 MPL Ref erence Range:Negative: <13Indeterminate: 13 - 20Low to m edium positive: >20 - 80High positi ve: >80 Beta-2 Glycoprotein I, IgG <10 SGU The reference inter pb reflects a 3SD or 99th percent ileinterval, which is thought to r epresent a potentiallyclin ically significant result in accor dance with theInternationa l Consensus Statement on e classificationc riteria for definitive anti phospholipid syndrome (APS). JThromb [id number];4:295- 306.Reference Range:Negative: <21Beta-2 Glycoprotein I, IgM <10 SMU The reference inter pb reflects a 3SD or 99th percent ileinterval, which is thought to r epresent a potentiallyclin ically significant result in accor dance with theInternationa l Consensus Statement on e classificationc riteria for definitive anti phospholipid syndrome (APS). JThromb [id number];4:295- 306.Reference Range:Negative: <33Beta-2 Glycoprotein I, IgA <10 DERIAN The reference inter pb reflects a 3SD or 99th percentileinter pb.Reference Range:Negative: <26 Factor II Gene Mutation Result G-G (Normal-Normal) No prothrombin [id number] mutatio n present.Interpr etation: While the patient does no t possess this risk factor, otherth rombotic risk factors may be detected through systematicclini carol laboratory analysis.Method ology: Patient DNA was evaluated f or the factor II gene mutationat nucleotide using PCR ampli fication followed byrestriction a nalysis and gel electrophoresis .Comments: Simultaneous Ri sks: If a patient possesses two o r morecongenital or acquired thromb ophilic risk factors, the ri skof thrombosis may rise to more th an the sum of the riskratios for the individual risk factors. For in stance, acombination of the prothrombin [id number] mutatio n and thefactor V Leiden mutation may confer an increase inthro mbotic risk in the range of 20-30 fold.Recommenda tions for Genetic Counseling: The prothrombingene mutation is an inherited characteristic. If themutation is present, we rec ommend that the patient andthei r family consider genetic certified addiction counselor ing to obtainadditiona l information on inheritance and to identify otherfamily mem bers at risk.Testing Ch aracteristics: Genetic testing providesexcepti onally high sensitivity and specificity. Inaccurateresul ts are limited to rare polymorphi sms in primer bindingsites an d to misidentificati on of specimens by collectorsor la boratory personnel. This assay dete cts only theprothrombin [id number] mutation and does not de tect othergenetic abnormalities.T his test was developed and i ts performance characteristics determined by [facility]. It has not been cleared or approvedby [facility] Food and Drug Administration. References: Presley K, et al. Br J of Haem. 1997;98:907.Alexsander graham AM, et al. Br J of Haem. 1997 ;98:353. Marine hunter and Garcia Mol.Diagn. 2001 ;6(3):201.Rodri Richardson, et al. Throm b Haemost. 2001;86:809-16. Jayda Carroll, et al. Thromb Haem ost. 1999;82:1583. Factor V Leiden Factor V Leiden Result G-A (Nor mal-Mutant)Positive - Heterozygous for factor V Leiden mutation.Interp retation: The factor V Leiden mutation is present on one copy of thepatient's fa ctor V gene. Presence of the heterozygousfactor V Leiden mutati on confers an approximate 5-f oldincrease in the risk of venous thrombosis.Meth odology: Patient DNA was evaluat ed for the factor V Leiden mutation at nucleotide 1691 using allele sp ecific PCR technologyfollo wed by gel electrophoresis .Comments: Simultaneous Ri sks: If a patient possesses two o r morecongenital or acquired thromb ophilic risk factors, the ri skof thrombosis may rise to more th an the sum of the riskratios for the individual risk factors. For in stance, acombination of the prothrombin C70829H mutatio n and thefactor V Leiden mutation may confer an increase inthro mbotic risk in the range of 20-30 fold.Recommenda tions for Genetic Counseling: The factor V Leidenmutation is an inherited characteristic. If the mutation ispresent, we r ecommend that the patient and the ir familyconsider genetic certified addiction counselor ing to obtain additionalinfor mation on inheritance and to identify other familymembers a t risk.Testing Characteristics : Genetic testing providesexcepti onally high sensitivity and specificity. Inaccurateresul ts are limited to rare polymorphi sms in primer bindingsites an d to misidentificati on of specimens by collectorsor la boratory personnel. This assay dete cts only the factorV Leiden mutation and does not detect othe r geneticabnormal ities.This test was developed and i ts performance characteristics determined by [facility]. It has not been cleared or approvedby t Food and Drug Administration. VENOUS THROMBOSIS PROFILETEST CODE: [id number]: THREE TUBES, 2 ML PPP EACH, FROZEN 2 MLSERUM FROZEN 5 ML EDTA WHOLE BLOOD, ROOM TEMP.UR METANEPHRINES [id number] 07:36:00 Test Item Value Reference Interpretation Comments Range UR METANEPHRINES 81 35-460 24HR (test code = mcg/24h MET24T) UR METANEPHRINES 23 ug/L Undefined This test w as developed and (TOTAL) (test code its perfo rmance = METTU) characteristics determined by [facility]. It has not been cleared orappro angela by the Food and Drug A dministration. NORMETANEPHRINE 102 ug/L (test code = NORMETT) NORMETANEPHRINE 24 357 82-500 N HR (test code = mcg/24h NORMETUR) UR HYDROXYINDOLEACETIC ACID [id number] 07:36:00 Test Item Value Reference Range Interpretation Comments UR HYDROXYINDOLEACETIC 3.9 mg/24 hr 0.0-14.9 Perfo rmed At: BN ACID QT (test code = [facility] 5HIAAU) [address] [id number] r jamel Peterson MD Ph:[phone] UR VOLUME (test code = 3500 ML 800-1800 H VOL) ADRENOCORTICOTROPIC [id number] 07:22:00 Test Item Value Reference Range Interpretation Comments ADRENOCORTICOTROPIC HORMONE 14.7 pg/mL 7.2-63.3 ACTH reference (test code = ACTH) interval for samples collected between 7 and10 AM.Performed At : [facility] [address] [id number] Kyle L MD Ph:[phone] UR METANEPHRINES [id number] 07:22:00 Test Item Value Reference Interpretation Comments Range UR METANEPHRINES mcg/24h 35-460 24HR (test code = MET24T) UR METANEPHRINES 23 ug/L Undefined This test w as developed and (TOTAL) (test code its perfo rmance = METTU) characteristics determined by [facility]. It has not been cleared orappro angela by the Food and Drug A dministration. NORMETANEPHRINE ug/L (test code = NORMETT) NORMETANEPHRINE 24 mcg/24h 82-500 HR (test code = NORMETUR) UR HYDROXYINDOLEACETIC ACID [id number] 07:22:00 Test Item Value Reference Range Interpretation Comments UR HYDROXYINDOLEACETIC 3.9 mg/24 hr 0.0-14.9 Perfo rmed At: BN ACID QT (test code = [facility] 5HIAAU) [address] [id number] tammy Peterson MD Ph:[phone] UR VOLUME (test code = 3500 ML 800-1800 H VOL) [id number] 07:12:00 Test Item Value Reference Range Interpretation Comments CORTISOL (test code = CORTR) 3.43 ug/dL 1.7-22.7 UA SPECIFIC [id number] 06:36:00 Test Item Value Reference Range Interpretation Comments UA SPECIFIC GRAVITY (test code = SGU) 1.010 1.003-1.030 N BASIC METABOLIC [id number] 06:03:00 Test Item Value Reference Range Interpretation Comments SODIUM (test code = 142 MMOL/L 137-145 N NA) POTASSIUM (test code = 3.9 MMOL/L 3.5-5.1 N K) CHLORIDE (test code = 107 MMOL/L 98-107 N CL) CARBON DIOXIDE (test 29 MMOL/L 22-30 N code = CO2) GLUCOSE (test code = 129 MG/DL 74-106 H GLU) BLOOD UREA NITROGEN 12 MG/DL 7-17 N (test code = BUN) GLOMERULAR FILTRATION > 60 Report ing units: RATE (test code = GFR) ml/mi n/1.73 m2 (Modified MDRD Formula)Referen ce Range: > or = 6 0 ml/min/1.73 m2 CREATININE (test code 0.70 MG/DL 0.52-1.04 N = CREAT) CALCIUM (test code = 9.1 MG/DL 8.4-10.2 N CA) CBC W/AUTO [id number] 05:41:00 Test Item Value Reference Range Interpretation Comments WHITE BLOOD CELL (test code = 8.3 K/MM3 3.8-9.8 N WBC) RED BLOOD CELL (test code = 3.43 M/MM3 3.58-4.97 L RBC) HEMOGLOBIN (test code = HGB) 7.7 G/DL 11.2-14.9 L HEMATOCRIT (test code = HCT) 26.2 % 33.2-43.5 L MEAN CELL VOLUME (test code = 76 fL 80.7-99.1 L MCV) MEAN CELL HGB (test code = MCH) 22.4 pg 27.0-34.1 L MEAN CELL HGB CONCETRATION 29.4 % 32.2-35.7 L (test code = MCHC) RED CELL DISTRIBUTION WIDTH 20.1 % 12.1-15.2 H (test code = RDW) PLATELET COUNT (test code = 270 K/MM3 129-368 N PLT) MEAN PLATELET VOLUME (test code 9.5 fl 7.4-10.4 N = MPV) NEUTROPHIL % (test code = NT%) 53.4 % 43-75 N IMMATURE GRANULOCYTE % (test 1.0 % 0.0-2.0 N code = IG%) LYMPHOCYTE % (test code = LY%) 37.2 % 14-44 N MONOCYTE % (test code = MO%) 6.2 % 4-13 N EOSINOPHIL % (test code = EO%) 2.0 % 0-6 N BASOPHIL % (test code = BA%) 0.2 % 0-2 N NUCLEATED RBC % (test code = 0.0 % 0-1.0 N NRBC%) NEUTROPHIL # (test code = NT#) 4.44 K/mm3 2.0-7.6 N IMMATURE GRANULOCYTE # (test 0.08 x10 3/uL 0-0.03 H code = IG#) LYMPHOCYTE # (test code = LY#) 3.10 K/mm3 1.0-3.8 N MONOCYTE # (test code = MO#) 0.52 K/mm3 0.1-0.8 N EOSINOPHIL # (test code = EO#) 0.17 K/mm3 0.0-0.2 N BASOPHIL # (test code = BA#) 0.02 K/mm3 0.0-0.2 N NUCLEATED RBC # (test code = 0.00 K/mm3 0.0-0.1 N NRBC#) DIFFERENTIAL [id number] 05:41:00 Test Item Value Reference Range Interpretation Comments RBC MORPHOLOGY REQUIRED (test code = RBCM) PLATELET ESTIMATE (test code = PLTEST) ADEQUATE PLATELET MORPHOLOGY (test code = NORMAL PLTMORPH) CBC W/AUTO [id number] 05:41:00 Test Item Value Reference Range Interpretation Comments WHITE BLOOD CELL (test code = 8.3 K/MM3 3.8-9.8 N WBC) RED BLOOD CELL (test code = 3.43 M/MM3 3.58-4.97 L RBC) HEMOGLOBIN (test code = HGB) 7.7 G/DL 11.2-14.9 L HEMATOCRIT (test code = HCT) 26.2 % 33.2-43.5 L MEAN CELL VOLUME (test code = 76 fL 80.7-99.1 L MCV) MEAN CELL HGB (test code = MCH) 22.4 pg 27.0-34.1 L MEAN CELL HGB CONCETRATION 29.4 % 32.2-35.7 L (test code = MCHC) RED CELL DISTRIBUTION WIDTH 20.1 % 12.1-15.2 H (test code = RDW) PLATELET COUNT (test code = 270 K/MM3 129-368 N PLT) MEAN PLATELET VOLUME (test code 9.5 fl 7.4-10.4 N = MPV) NEUTROPHIL % (test code = NT%) 53.4 % 43-75 N IMMATURE GRANULOCYTE % (test 1.0 % 0.0-2.0 N code = IG%) LYMPHOCYTE % (test code = LY%) 37.2 % 14-44 N MONOCYTE % (test code = MO%) 6.2 % 4-13 N EOSINOPHIL % (test code = EO%) 2.0 % 0-6 N BASOPHIL % (test code = BA%) 0.2 % 0-2 N NUCLEATED RBC % (test code = 0.0 % 0-1.0 N NRBC%) NEUTROPHIL # (test code = NT#) 4.44 K/mm3 2.0-7.6 N IMMATURE GRANULOCYTE # (test 0.08 x10 3/uL 0-0.03 H code = IG#) LYMPHOCYTE # (test code = LY#) 3.10 K/mm3 1.0-3.8 N MONOCYTE # (test code = MO#) 0.52 K/mm3 0.1-0.8 N EOSINOPHIL # (test code = EO#) 0.17 K/mm3 0.0-0.2 N BASOPHIL # (test code = BA#) 0.02 K/mm3 0.0-0.2 N NUCLEATED RBC # (test code = 0.00 K/mm3 0.0-0.1 N NRBC#) DIFFERENTIAL [id number] 05:41:00 Test Item Value Reference Range Interpretation Comments RBC MORPHOLOGY REQUIRED (test code = RBCM) PLATELET ESTIMATE (test code = PLTEST) ADEQUATE PLATELET MORPHOLOGY (test code = NORMAL PLTMORPH) UA SPECIFIC [id number] 22:47:00 Test Item Value Reference Range Interpretation Comments UA SPECIFIC GRAVITY (test code = SGU) 1.015 1.003-1.030 N [id number] 21:35:00 Test Item Value Reference Range Interpretation Comments CORTISOL (test code = CORTR) 4.12 ug/dL 1.7-22.7 [id number] 20:56:00 Test Item Value Reference Range Interpretation Comments SODIUM (test code = NA) 141 MMOL/L 137-145 N PITUITARY [id number] 14:40:00 RUN DATE: 09/01/18 [place] - LAB PAGE 1 RUN TIME: 1440 Specimen Inquiry RUN USER: INTERFACE PATIENT: LEIGH FRYE LOC: DELL U #: [id number] AGE/SX: 38/F ROOM: [facility] RE08/25/18REG DR: Jani Mckoy MD : 80 BED: A DIS: STATUS: ADM IN TLOC: SPEC #: [id number]:[id number] RECD: 08/30/18 STATUS: BILL REQ #: [id number] LAST: 08/30/18 [facility] DR: Jani Mckoy MD ENTERED: 08/30/18 SP TYPE: PITUIT OTHR DR: Matilde Burnham DPM, Patrick MDORDERED: FS, IMNO, RETIC, SURG PATH LVL /2, MORPH IHC, TOUCH PREP EA A, IMMUNO EA ADD'L/4 CODES: [id number] - EXCISIONAL BIOP DO7354 - PITUITARY GLAND TL0621 [id number] - PITUITARY GLAND ADENOMA, NOS [id number] - CELL, NOS ADENOMA, NOS AZ8471 M8 2800 - CELL, NOS ACIDOPHIL ADENO COPIES [place]: [place] [address] [place] [address] Matilde Burnham [address]PM [address] [facility] [address] [place] [address] [place] [address] [facility] [address] [place] [address] PROCEDURES: FS (08/30/18-1505) IMNO (08/31/18-941) RETIC (08/31/18) SURG PATH LVL 4 (08/30/18) MORPH IHC (08/31/18) TOUCH PREP EA A (08/30/18) IMMUNO EA ADD'L (08/31/18941) TISSUES: A. PITUITARY GLAND, NOS - PITUITARY TUMOR B. PITUITARY GLAND, NOS - PITUITARY TUMOR CONSULTATION Dr. Lubin has reviewed this case and agrees with the diagnosis. CONTINUED ON NEXT PAGE RUN DATE: 09/01/18 [place] - LAB PAGE 2 RUNTIME: 1440 Specimen Inquiry RUN USER: INTERFACE SPEC #: [id number]:[id number] PATIENT: MELVALEIGH RUBIO #[id number] (Continued) CPT CODES CPT CODE(S): 92490V6 , 62262 , 51372 ,46387 , 99199Q0 , 47343 , FINAL DIAGNOSIS A. and B. 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 Pituitary tumor: SUGGESTIVE OF PITUITARY ADENOMA [...] nuclei. Reticulin special stain, with adequate control, demonstrat es a lack of well-organized acini, consistent with adenoma. Focal hyalinized stroma with variablevascularity. Minimal nuclear atypia without conspicuous mitotic activity. The tissue block is studied with the following panel of immunohistochemical stains, each with adequate control, with the following results: Synaptophysin: Positive. Chromogranin: Partial uptake present. CAM 5.2: Diffusely and strongly positive with ring-like pattern consistent with Crooke's hyaline. CK7: Negative. CK20: Negative. Ki-67: Very low proliferative rate (5% or less). No highlighted mitoses. /latia/cm Additional CPT code(s): 13607 CONTINUED ON NEXT PAGE RUN DATE: 09/01/18 [place] - LAB PAGE 3 RUN TIME: 1440 Specimen Inquiry RUN USER: INTERFACE SPEC #: [id number]:[id number] PATIENT: LEIGH FRYE #[id number] (Continued) COMMENT: Sufficient tissue is on reserve to accomplish histologic hormone studies, as clinically appropriate. The permanent section evaluation confirms the gross intraoperative frozen section and touch prep impressions. Signed SIGNATURE ON FILE Cabrera George 09/01/18 1440 END OF REPORT [id number] 14:39:00 Test Item Value Reference Range Interpretation Comments CORTISOL (test code = CORTR) 9.19 ug/dL 1.7-22.7 [id number] 14:05:00 Test Item Value Reference Range Interpretation Comments SODIUM (test code = NA) 142 MMOL/L 137-145 N UNABLE TO DRAW BLOOD, REASON:UA SPECIFIC [id number] 13:41:00 Test Item Value Reference Range Interpretation Comments UA SPECIFIC GRAVITY (test code = SGU) 1.020 1.003-1.030 N UA SPECIFIC [id number] 09:02:00 Test Item Value Reference Range Interpretation Comments UA SPECIFIC GRAVITY (test code = SGU) 1.015 1.003-1.030 N [id number] 08:19:00 Test Item Value Reference Range Interpretation Comments SODIUM (test code = NA) 144 MMOL/L 137-145 N UR METANEPHRINES [id number] 07:28:00 Test Item Value Reference Range Interpretation Comments UR METANEPHRINES 24HR (test code = mcg/24h 35-460 MET24T) UR METANEPHRINES (TOTAL) (test code ug/L = METTU) NORMETANEPHRINE (test code = ug/L NORMETT) NORMETANEPHRINE 24 HR (test code = mcg/24h 82-500 NORMETUR) UR HYDROXYINDOLEACETIC ACID [id number] 07:28:00 Test Item Value Reference Range Interpretation Comments UR HYDROXYINDOLEACETIC 3.9 mg/24 hr 0.0-14.9 Perfo rmed At: BN ACID QT (test code = [facility] 5HIAAU) [address] [id number] Peterson MD Ph:[phone] UR VOLUME (test code = 3500 ML 800-1800 H VOL) UR METANEPHRINES [id number] 07:23:00 Test Item Value Reference Range Interpretation Comments UR METANEPHRINES 24HR (test code = mcg/24h 35-460 MET24T) UR METANEPHRINES (TOTAL) (test code ug/L = METTU) NORMETANEPHRINE (test code = ug/L NORMETT) NORMETANEPHRINE 24 HR (test code = mcg/24h 82-500 NORMETUR) UR HYDROXYINDOLEACETIC ACID [id number] 07:23:00 Test Item Value Reference Range Interpretation Comments UR HYDROXYINDOLEACETIC 3.9 mg/24 hr 0.0-14.9 Perfo rmed At: BN ACID QT (test code = [facility] 5HIAAU) [address] [id number] Peterson MD Ph:[phone] UR VOLUME (test code = ML 800-1800 VOL) AB PARIETAL [id number] 07:22:00 Test Item Value Reference Range Interpretation Comments AB PARIETAL CELL 4.10 Units 0.0-20.0 (test code = Negative 0.0 - PARIETALAB) 20.0 Equiv ocal 20.1 - 24.9 Pos itive >24.9Parieta l Cell Antibodies are found in 90% of patients with pernicious anem ia and 30% of first degree relatives with pernicious anemia.Performe d At: [facility] [address] [place], [place] [address]Nxkylitobias Peterson MD Ph:[phone] [id number] 07:22:00 Test Item Value Reference Interpretation Comments Range ALDOSTERONE < 1.0 0.0-30.0 This test was d eveloped and (test code = ng/dL its performance ALDOS) characteristics determined by [facility]. It has not been cleared orappro angela by the Food and Drug Administration. Performed At: [address] [id number] Peterson MD Ph:[phone]~~ ~~~~~~~~~~~~~~~ ~~~~~~~~~~~~~~~ ~~~~~~~~~~~~~~~ ~~~~~~~~~~~~~AL DOSTERONE REFERENCE RANGE S: SUPINE.... .....0 - 15.9 NG/DL UPRIGHT........ ..4 - 39 NG/DL ADRENAL VEIN..200 - 800 NG/DL NORMAL SODIUM INTAKE (100 - 200 MEQ/DAY)~~~~~~~ ~~~~~~~~~~~~~~~ ~~~~~~~~~~~~~~~ ~~~~~~~~~~~~~~~ ~~~~~~~~ CBC W/AUTO [id number] 06:29:00 Test Item Value Reference Range Interpretation Comments WHITE BLOOD CELL (test code = 11.7 K/MM3 3.8-9.8 H WBC) RED BLOOD CELL (test code = 3.59 M/MM3 3.58-4.97 RBC) HEMOGLOBIN (test code = HGB) 8.0 G/DL 11.2-14.9 L HEMATOCRIT (test code = HCT) 26.8 % 33.2-43.5 L MEAN CELL VOLUME (test code = 75 fL 80.7-99.1 L MCV) MEAN CELL HGB (test code = MCH) 22.3 pg 27.0-34.1 L MEAN CELL HGB CONCETRATION 29.9 % 32.2-35.7 L (test code = MCHC) RED CELL DISTRIBUTION WIDTH 19.5 % 12.1-15.2 H (test code = RDW) PLATELET COUNT (test code = 301 K/MM3 129-368 N PLT) MEAN PLATELET VOLUME (test code 9.4 fl 7.4-10.4 N = MPV) NEUTROPHIL % (test code = NT%) 71.6 % 43-75 N IMMATURE GRANULOCYTE % (test 1.4 % 0.0-2.0 N code = IG%) LYMPHOCYTE % (test code = LY%) 18.1 % 14-44 N MONOCYTE % (test code = MO%) 8.3 % 4-13 N EOSINOPHIL % (test code = EO%) 0.5 % 0-6 N BASOPHIL % (test code = BA%) 0.1 % 0-2 N NUCLEATED RBC % (test code = 0.0 % 0-1.0 N NRBC%) NEUTROPHIL # (test code = NT#) 8.40 K/mm3 2.0-7.6 H IMMATURE GRANULOCYTE # (test 0.16 x10 3/uL 0-0.03 H code = IG#) LYMPHOCYTE # (test code = LY#) 2.13 K/mm3 1.0-3.8 N MONOCYTE # (test code = MO#) 0.98 K/mm3 0.1-0.8 H EOSINOPHIL # (test code = EO#) 0.06 K/mm3 0.0-0.2 N BASOPHIL # (test code = BA#) 0.01 K/mm3 0.0-0.2 N NUCLEATED RBC # (test code = 0.00 K/mm3 0.0-0.1 N NRBC#) PROTHROMBIN [id number] 06:22:00 Test Item Value Reference Range Interpretation Comments PROTHROMBIN TIME 10.1 SECONDS 9.6-11.6 N PATIENT (test code = PTP) INTERNATIONAL NORMAL 1.0 0.8-1.1 N The INR is to be RATIO (test code = used only for INR) monitoring oral anticoagulantth erap y. INDICATION I NR VALUE ---- ---- ---- -------1. Prophylaxis, de ep venous thrombos is, including hig h risk surgery. 2.0 - 3.0 2. Prophylaxis, de ep venous thrombos is, hip surgery, treatment for d eep venous thrombosis or pulmonary prevention of systemic emboli sm in patients wit h valvular heart disease, atrial fibrillation, tissue heart va lve, or acute myocar dial infarction. 2.0 - 3 .0 3. Mechanical prosthesis hear t valves, recurrent syste donovan embolism. 3.0 - 4.5 PTT [id number] 06:22:00 Test Item Value Reference Range Interpretation Comments PTT ACTIVATED (test code = APTT) 25.0 SECONDS 22.0-33.0 N BASIC METABOLIC [id number] 04:51:00 Test Item Value Reference Range Interpretation Comments SODIUM (test code = 143 MMOL/L 137-145 N NA) POTASSIUM (test code = 4.1 MMOL/L 3.5-5.1 N K) CHLORIDE (test code = 112 MMOL/L 98-107 H CL) CARBON DIOXIDE (test 25 MMOL/L 22-30 N code = CO2) GLUCOSE (test code = 198 MG/DL 74-106 H GLU) BLOOD UREA NITROGEN 13 MG/DL 7-17 N (test code = BUN) GLOMERULAR FILTRATION > 60 Report ing units: RATE (test code = GFR) ml/mi n/1.73 m2 (Modified MDRD Formula)Referen ce Range: > or = 6 0 ml/min/1.73 m2 CREATININE (test code 0.70 MG/DL 0.52-1.04 N = CREAT) CALCIUM (test code = 8.8 MG/DL 8.4-10.2 N CA) UA SPECIFIC [id number] 03:20:00 Test Item Value Reference Range Interpretation Comments UA SPECIFIC GRAVITY (test code = SGU) 1.005 1.003-1.030 N [id number] 23:45:00 Test Item Value Reference Range Interpretation Comments SODIUM (test code = NA) 142 MMOL/L 137-145 N [id number] 21:37:00 Test Item Value Reference Range Interpretation Comments SODIUM (test code = NA) 141 MMOL/L 137-145 N UA SPECIFIC [id number] 20:17:00 Test Item Value Reference Range Interpretation Comments UA SPECIFIC GRAVITY (test code = SGU) 1.010 1.003-1.030 N UA SPECIFIC [id number] 17:42:00 Test Item Value Reference Range Interpretation Comments UA SPECIFIC GRAVITY (test code = SGU) 1.015 1.003-1.030 N [id number] 16:52:00 Test Item Value Reference Range Interpretation Comments SODIUM (test code = NA) 139 MMOL/L 137-145 N [id number] 11:35:00 Test Item Value Reference Range Interpretation Comments SODIUM (test code = NA) 140 MMOL/L 137-145 N UA SPECIFIC [id number] 08:28:00 Test Item Value Reference Range Interpretation Comments UA SPECIFIC GRAVITY (test code = SGU) 1.010 1.003-1.030 N UR SODIUM [id number] 08:28:00 Test Item Value Reference Range Interpretation Comments UR SODIUM RANDOM (test code = BRIGIDO) 91 MMOL/L 27-287 N - CT HEAD/BRAIN W/O [id number] 08:17:00 Patient Name: LEIGH FRYE Unit No: [id number] EXAMS: CPT CODE: [id number] CT HEAD/BRAIN W/O CONT 83072 Dictation location: U19. CT HEAD WITHOUT CONTRAST. HISTORY: Post Op Craniotomy COMPARISON: CT head 08/29/18. TECHNIQUE: Axial CT images of the head [...] RT(R)(CT) CTDI: DLP: Trnscrpt: 08/31/2018 (0817) t.SDR.[email or web address] [facility] [place] NAME: LEIGH FRYE [id number] Js PHYS: Tanya Syed NP [place] [id number] : 1980 AGE: 38 SEX: F LOC: [id number] A PHONE #: [phone] EXAM DATE: 08/31/2018 STATUS: ADM IN FAX #: [phone] RAD #: D/C DT PAGE 1 Signed Report Patient Name: LEIGH FRYE Unit No: [id number] EXAMS: CPT CODE: [id number] CT HEAD/BRAIN W/O CONT 87486 <Continued> Orig Print D/T: S: 08/31/2018 (20) [facility] [place] NAME: LEIGH FRYE PHYS: Tanya Syed NP [place] [id number] : 1980 AGE: 38 SEX: F LOC: Z.SI09 A PHONE #: [phone] EXAM DATE: 08/31/2018 STATUS: ADMIN FAX #: [phone] RAD #: D/C DT PAGE 2 Signed ReportUA SPECIFIC GRAVITY 2018-08-31 08:12:00 Test Item Value Reference Range Interpretation Comments UA SPECIFIC GRAVITY (test code = SGU) 1.010 1.003-1.030 N UR SODIUM [id number] 08:12:00 Test Item Value Reference Range Interpretation Comments UR SODIUM RANDOM (test code = BRIGIDO) MMOL/L 27-287 [id number] 07:31:00 Test Item Value Reference Range Interpretation Comments THYROGLOBULIN (test code = 6.3 N ORMAL : 1.5-38.5 THYROGL) ng/ml METANEPHRINES, FREE, [id number] 07:24:00 Test Item Value Reference Range Interpretation Comments METANEPHRINES 12 pg/mL 0-62 This test was developed and its , FREE, performance PLASMA (test characteristics determined by code = METAF) [facility]. It begum s not been cleared orapproved by t Food and Drug Administration. Concentrations of Normetanephrine between 146 and 487pg/mL, and M etanephrine between 63 and 255 pg/mL areconsidered i ndeterminate. Follow-up bioch emical testing isrecommended w hen patient levels fall wit hin thisindetermina te range. These tests include r epeat testing ofplasma/urinar y fractionated metanephrines a nd plasmacatechola mines.Performed At: [facility] [address] [id number] ra Kristen VELASCO Ph:[phone] [id number] 03:54:00 Test Item Value Reference Range Interpretation Comments CORTISOL (test code = CORTR) 78.90 ug/dL 1.7-22.7 H [id number] 01:35:00 Test Item Value Reference Range Interpretation Comments SODIUM (test code = NA) 142 MMOL/L 137-145 N UA SPECIFIC [id number] 00:52:00 Test Item Value Reference Range Interpretation Comments UA SPECIFIC GRAVITY (test code = SGU) 1.005 1.003-1.030 N UA SPECIFIC [id number] 17:15:00 Test Item Value Reference Range Interpretation Comments UA SPECIFIC GRAVITY (test code = SGU) 1.025 1.003-1.030 N [id number] 16:51:00 Test Item Value Reference Range Interpretation Comments CORTISOL (test code = CORTR) 46.60 ug/dL 1.7-22.7 H UNABLE TO DRAW BLOOD, REASON: CBNNOTIFIED PATIENT CARE STAFF: DAVID GODWIN 08/30/18 AT 1534 BY Christian Montelongo METABOLIC [id number] 16:06:00 Test Item Value Reference Range Interpretation Comments SODIUM (test code = 139 MMOL/L 137-145 N NA) POTASSIUM (test code = 4.1 MMOL/L 3.5-5.1 N K) CHLORIDE (test code = 107 MMOL/L 98-107 N CL) CARBON DIOXIDE (test 24 MMOL/L 22-30 N code = CO2) GLUCOSE (test code = 137 MG/DL 74-106 H GLU) BLOOD UREA NITROGEN 15 MG/DL 7-17 N (test code = BUN) GLOMERULAR FILTRATION > 60 Report ing units: RATE (test code = GFR) ml/mi n/1.73 m2 (Modified MDRD Formula)Referen ce Range: > or = 6 0 ml/min/1.73 m2 CREATININE (test code 0.80 MG/DL 0.52-1.04 N = CREAT) CALCIUM (test code = 9.2 MG/DL 8.4-10.2 N CA) UNABLE TO DRAW BLOOD, REASON: CBNNOTIFIED PATIENT CARE STAFF: DAVID GODWIN 08/30/18 AT 1533 BY Tim Montelongo W/AUTO [id number] 15:57:00 Test Item Value Reference Range Interpretation Comments WHITE BLOOD CELL (test code = 10.6 K/MM3 3.8-9.8 H WBC) RED BLOOD CELL (test code = 4.24 M/MM3 3.58-4.97 N RBC) HEMOGLOBIN (test code = HGB) 9.1 G/DL 11.2-14.9 L HEMATOCRIT (test code = HCT) 30.9 % 33.2-43.5 L MEAN CELL VOLUME (test code = 73 fL 80.7-99.1 L MCV) MEAN CELL HGB (test code = MCH) 21.5 pg 27.0-34.1 L MEAN CELL HGB CONCETRATION 29.4 % 32.2-35.7 L (test code = MCHC) RED CELL DISTRIBUTION WIDTH 17.9 % 12.1-15.2 H (test code = RDW) PLATELET COUNT (test code = 326 K/MM3 129-368 N PLT) MEAN PLATELET VOLUME (test code 9.4 fl 7.4-10.4 N = MPV) NEUTROPHIL % (test code = NT%) 78.2 % 43-75 H IMMATURE GRANULOCYTE % (test 0.7 % 0.0-2.0 N code = IG%) LYMPHOCYTE % (test code = LY%) 15.2 % 14-44 N MONOCYTE % (test code = MO%) 4.9 % 4-13 N EOSINOPHIL % (test code = EO%) 0.8 % 0-6 N BASOPHIL % (test code = BA%) 0.2 % 0-2 N NUCLEATED RBC % (test code = 0.0 % 0-1.0 N NRBC%) NEUTROPHIL # (test code = NT#) 8.27 K/mm3 2.0-7.6 H IMMATURE GRANULOCYTE # (test 0.07 x10 3/uL 0-0.03 H code = IG#) LYMPHOCYTE # (test code = LY#) 1.61 K/mm3 1.0-3.8 N MONOCYTE # (test code = MO#) 0.52 K/mm3 0.1-0.8 N EOSINOPHIL # (test code = EO#) 0.08 K/mm3 0.0-0.2 N BASOPHIL # (test code = BA#) 0.02 K/mm3 0.0-0.2 N NUCLEATED RBC # (test code = 0.00 K/mm3 0.0-0.1 N NRBC#) UNABLE TO DRAW BLOOD, REASON: CBNNOTIFIED PATIENT CARE STAFF: DAVID GODWIN 08/30/18 AT 1534 BY Demetrius Montelongo ARTERIAL BLOOD [id number] 12:31:00 Test Item Value Reference Range Interpretation Comments POC ARTERIAL BLOOD GAS 7.396 7.35-7.45 N Previ ously reported PH (test code = result: 7.41 1 Edited POCPHA) by: DOMINIC o n 08/30/18: 9 1230: POC AB G PH previously repo rted as: 7.411 POC ARTERIAL BLOOD GAS 40.9 mmHg 35.0-45.0 N Previ ously reported PCO2 (test code = result: 39 .2 [id number]) mmHgEdited by: DOMINIC on 08/30/18: 9 1230: POCPCO 2A previously repo rted as: 39.2 mmHg POC ARTERIAL BLOOD GAS 87 75.0-100.0 N Previ ously reported PO2 (test code = result: 82 Edited NVYFF5W) by: HEIDIBGG o n 08/30/18:337485 9 1230: POC PO 2A previously repo rted as: 82 POC HCO3 ARTERIAL 25.1 MMOL/L 20.0-26.0 N (test code = SYBBFP8O) POC BASE EXCESS (test 0.0 MMOL/L -3.0-3.0 N code = POCBEA) POC O2 SATURATION 97 % 92.0-98.5 N (test code = POCO2S) FIO2 (test code = 21 % 21-100 N FIO2A) ABG DELIVERY (test Room Air code = KIRILL) ABG TEMPERATURE (test 37.0 C >37 code = TEMPA) ABG SITE (test code = R Radial SITEA) ALLENS TEST (test code YES CHECK ~ = ALLENS) POC LACTIC ACID (test 0.87 MMOL/L 0.4-2.0 N code = POCLAC) HCG [id number] 11:02:00 Test Item Value Reference Range Interpretation Comments HCG POC (test < 5.0 IU/L Results of 5.0 - 25.0 IU/L code = HCGPOC) are indetermi eugenia and do not ruleout pre gnancy. Because hCG pb ues double approximately e very48 hours in a norm al , colleen ents with low levels ofhC G should be resampled and r etested after 48 hours toconfirm . T3,T4 [id number] 07:15:00 Test Item Value Reference Range Interpretation Comments T3 UPTAKE (test code = T3UP) 34.6 % UP 23.5-40.5 N T4 (THYROXINE) (test code = T4) 7.16 UG/DL 5.53-11.0 N T7 (FREE THYROXINE INDEX) (test 2.5 1.2-4.3 N code = T7) ADRENOCORTICOTROPIC [id number] 07:15:00 Test Item Value Reference Range Interpretation Comments ADRENOCORTICOTROPIC HORMONE 35.5 pg/mL 7.2-63.3 ACTH reference (test code = ACTH) interval for samples collected between 7 and10 AM. FOLLICLE STIM LEUTINIZING [id number] 07:15:00 Test Item Value Reference Range Interpretation Comments LUTEINIZING HORMONE 6.60 mIU/mL () (test code = LH) Adult Femal e: Fol licular phase 2.4 - 12.6 Ovulation phase 14.0 - 95.6 Lute al phase 1.0 - 11.4 Postmenopaus al 7.7 - 58.5LH INTERPRETIVE DA TA: MALES: 1.5-9.3 NORMAL MENSTRUATING FE MALES: FOL LICULAR PHASE: 1 .9-12.5 MID-CYCLE PHASE : 8.7-76.3 LUTEAL PH ASE: 0.5-16.9 POSTEMNOPAUSAL FEMALES: 15.9-54 ALL V AULES GIVEN IN OG-INTERNATI ONAL UNITS PER OG LITER FOLLICLE STIMULATING 7.0 mIU/mL () HORMONE (test code = Adult F emale: FSH) Fol licular phase 3.5 - 12.5 Ovulation phase 4.7 - 21.5 Lutea l phase 1.7 - 7.7 Postmenopausal 25.8 - 134.8FSH INTERPRETIVE DA TA: MALES: 1.4 - 18.1 NOMALLY MENSTRU ATING FEMALES: FOLLICULAR PH ASE: 2.5 - 10.2 MID-CYCLE PE AK: 3.4 - 33.4 LUTEAL PHAS E: 1.5 - 9.1 POSTMENOPAUSAL FEMALES: 23. 0 - 116.3All values given in og-Internati onals Unit per millil iter GROWTH HORMONE (HUMAN)2018-08-30 07:15:00 Test Item Value Reference Range Interpretation Comments GROWTH HORMONE 0.1 ng/mL 0.0-10.0 Performed At: (HUMAN) (test code = [id number]) [place], [place] [id number] yovany Farfan MD Ph:[phone] rformed At: [facility] [address] [id number] ra Kristen VELASCO Ph:[phone] INSULIN-LIKE GROWTH FACTOR [id number] 07:15:00 Test Item Value Reference Range Interpretation Comments INSULIN-LIKE GROWTH FACTOR I (test 147 ng/mL 69-227 code = INSLKGF1) [id number] 07:15:00 Test Item Value Reference Range Interpretation Comments PROLACTIN (test code = 42.1 ng/mL 4.8-23.3 H Perfo rmed At: HD PROLAC) [facility] [id number] Etienne Farfan MD Ph:[phone] PROTHROMBIN [id number] 07:06:00 Test Item Value Reference Range Interpretation Comments PROTHROMBIN TIME 10.3 SECONDS 9.6-11.6 N PATIENT (test code = PTP) INTERNATIONAL NORMAL 1.0 0.8-1.1 N The INR is to be RATIO (test code = used only for INR) monitoring oral anticoagulantth erap y. INDICATION I NR VALUE ---- ---- ---- -------1. Prophylaxis, de ep venous thrombos is, including hig h risk surgery. 2.0 - 3.0 2. Prophylaxis, de ep venous thrombos is, hip surgery, treatment for d eep venous thrombosis or pulmonary prevention of systemic emboli sm in patients wit h valvular heart disease, atrial fibrillation, tissue heart va lve, or acute myocar dial infarction. 2.0 - 3 .0 3. Mechanical prosthesis hear t valves, recurrent syste donovan embolism. 3.0 - 4.5 PTT [id number] 07:06:00 Test Item Value Reference Range Interpretation Comments PTT ACTIVATED (test code = APTT) 28.7 SECONDS 22.0-33.0 N - CT HD/BR W W/O [id number] 18:59:00 Patient Name: LEIGH FRYE Unit No: [id number] EXAMS: CPT CODE: [id number] CT HD/BR W W/O CONT 30940 CLINICAL INFORMATION: Evaluate pituitary tumor. Dictation Location:R [...] Chaudhari M.D. CC: Michael Martínez NP Technologist: RT Jonathan(R)(CT); Kade Hanna CTDI: DLP: Trnscrpt: 08/29/2018 (1858) [email or web address] [facility] NAME: LEIGH FRYE [id number] [address] PHYS: [place] [address] : 1980 AGE: 38 SEX: F LOC: Z.535 A PHONE #: [phone] EXAM DATE: 08/29/2018 STATUS: ADM IN FAX #: [phone] RAD #: D/C DT PAGE 1 Signed Report Patient Name: LEIGH FRYE Unit No: [id number] EXAMS: CPT CODE: [id number] CT HD/BR W W/O CONT [id number] <Continued> Orig Print D/T: S: 08/29/2018 (190) [facility] NAME: LEIGH FRYE [id number] [address] PHYS: [place] [address] : 1980 AGE: 38 SEX: F LOC: Z.535 A PHONE #: [phone] EXAM DATE: 08/29/2018 STATUS: ADM IN FAX #: [phone] RAD #: D/C DT PAGE 2 Signed ReportBASIC METABOLIC [id number] 15:55:00 Test Item Value Reference Range Interpretation Comments SODIUM (test code = 139 MMOL/L 137-145 N NA) POTASSIUM (test code = 4.4 MMOL/L 3.5-5.1 N K) CHLORIDE (test code = 105 MMOL/L 98-107 N CL) CARBON DIOXIDE (test 25 MMOL/L 22-30 N code = CO2) ANION GAP (test code = 13 MMOL/L 14-24 L GAP) GLUCOSE (test code = 113 MG/DL 74-106 H GLU) BLOOD UREA NITROGEN 17 MG/DL 7-17 N (test code = BUN) GLOMERULAR FILTRATION > 60 Report ing units: RATE (test code = GFR) ml/mi n/1.73 m2 (Modified MDRD Formula)Referen ce Range: > or = 6 0 ml/min/1.73 m2 CREATININE (test code 0.90 MG/DL 0.52-1.04 N = CREAT) CALCIUM (test code = 9.7 MG/DL 8.4-10.2 N CA) HCG [id number] 15:55:00 Test Item Value Reference Range Interpretation Comments HCG SERUM (test < 2 IU/L ~~~~~~~~~~~~ ~~~~~~~~~~~~~~~~ code = HCG) ~~~~~~~~~~~~~~~ ~~~~~~~~~~~~~ ~~~~[facility]AT [facility] 0.2-1 W EEKS AFTER CONCEPTION 5-50 1-2 WEEKS AFTER CON CEPTION 50-500 2-3 WEEKS AFTER CONCEPTION 100-5,000 3-4 WEEKS AFTE R CONCEPTION 500-10,000 4-5 WEEKS AFTER CONCEPTIO N 1,000-50,000 5 -6 WEEKS AFTER CONCEPTIO N 10,000-100,0006 -8 WEEKS AFTER CONCEPTIO N 15,000-200,0002 -3 MONTHS 10,000-100,000 All values given in og- International Units per mil liliter. SPECIMENS WITH B-HCG LEVELS LESS THAN OR EQ UAL TO 5 og-Internati onal Units per milliliter WILL BE REPORTED ZER O OR "NEGATIVE." SP ECIMENS WITHB-HCG LEVEL S GREATER THAN OR EQUAL T O 25 og-Internati onal Units per milliliter WILL BEREPORTED " POSITIVE." SPECIMENS WITH B-HCG LEVELS GREATERTHAN 5 og-Internati onal Units per milliliter AND LESS THAN 25 og-Panel Sewer ational Units per milliliterS MICH HAVE ADDITIONAL BLOO D SAMPLE DRAWN 48 HOURSL ATER AND REPEATED.~~~~~~ ~~~~~~~~~~~~~ ~~~~~~~~~~~~~~~ ~~~~~~~~~~~~~ ~~~~~~~~~~~~~ PROTHROMBIN [id number] 15:45:00 Test Item Value Reference Range Interpretation Comments PROTHROMBIN TIME 10.2 SECONDS 9.6-11.6 N PATIENT (test code = PTP) INTERNATIONAL NORMAL 1.0 0.8-1.1 N The INR is to be RATIO (test code = used only for INR) monitoring oral anticoagulantth erap y. INDICATION I NR VALUE ---- ---- ---- -------1. Prophylaxis, de ep venous thrombos is, including hig h risk surgery. 2.0 - 3.0 2. Prophylaxis, de ep venous thrombos is, hip surgery, treatment for d eep venous thrombosis or pulmonary prevention of systemic emboli sm in patients wit h valvular heart disease, atrial fibrillation, tissue heart va lve, or acute myocar dial infarction. 2.0 - 3 .0 3. Mechanical prosthesis hear t valves, recurrent syste donovan embolism. 3.0 - 4.5 BASIC METABOLIC [id number] 15:39:00 Test Item Value Reference Range Interpretation Comments SODIUM (test code = 139 MMOL/L 137-145 N NA) POTASSIUM (test code = 4.4 MMOL/L 3.5-5.1 N K) CHLORIDE (test code = 105 MMOL/L 98-107 N CL) CARBON DIOXIDE (test 25 MMOL/L 22-30 N code = CO2) ANION GAP (test code = 13 MMOL/L 14-24 L GAP) GLUCOSE (test code = 113 MG/DL 74-106 H GLU) BLOOD UREA NITROGEN 17 MG/DL 7-17 N (test code = BUN) GLOMERULAR FILTRATION > 60 Report ing units: RATE (test code = GFR) ml/mi n/1.73 m2 (Modified MDRD Formula)Referen ce Range: > or = 6 0 ml/min/1.73 m2 CREATININE (test code 0.90 MG/DL 0.52-1.04 N = CREAT) CALCIUM (test code = 9.7 MG/DL 8.4-10.2 N CA) HCG [id number] 15:39:00 Test Item Value Reference Range Interpretation Comments HCG SERUM (test code = HCG) IU/L CBC W/AUTO [id number] 15:29:00 Test Item Value Reference Range Interpretation Comments WHITE BLOOD CELL (test code = 10.8 K/MM3 3.8-9.8 H WBC) RED BLOOD CELL (test code = 4.14 M/MM3 3.58-4.97 N RBC) HEMOGLOBIN (test code = HGB) 8.9 G/DL 11.2-14.9 L HEMATOCRIT (test code = HCT) 29.9 % 33.2-43.5 L MEAN CELL VOLUME (test code = 72 fL 80.7-99.1 L MCV) MEAN CELL HGB (test code = MCH) 21.5 pg 27.0-34.1 L MEAN CELL HGB CONCETRATION 29.8 % 32.2-35.7 L (test code = MCHC) RED CELL DISTRIBUTION WIDTH 17.2 % 12.1-15.2 H (test code = RDW) PLATELET COUNT (test code = 277 K/MM3 129-368 N PLT) MEAN PLATELET VOLUME (test code 10.4 fl 7.4-10.4 N = MPV) NEUTROPHIL % (test code = NT%) 70.5 % 43-75 N IMMATURE GRANULOCYTE % (test 0.4 % 0.0-2.0 N code = IG%) LYMPHOCYTE % (test code = LY%) 19.6 % 14-44 N MONOCYTE % (test code = MO%) 6.9 % 4-13 N EOSINOPHIL % (test code = EO%) 2.1 % 0-6 N BASOPHIL % (test code = BA%) 0.5 % 0-2 N NUCLEATED RBC % (test code = 0.0 % 0-1.0 N NRBC%) NEUTROPHIL # (test code = NT#) 7.62 K/mm3 2.0-7.6 H IMMATURE GRANULOCYTE # (test 0.04 x10 3/uL 0-0.03 H code = IG#) LYMPHOCYTE # (test code = LY#) 2.11 K/mm3 1.0-3.8 N MONOCYTE # (test code = MO#) 0.74 K/mm3 0.1-0.8 N EOSINOPHIL # (test code = EO#) 0.23 K/mm3 0.0-0.2 H BASOPHIL # (test code = BA#) 0.05 K/mm3 0.0-0.2 N NUCLEATED RBC # (test code = 0.00 K/mm3 0.0-0.1 N NRBC#) LUPUS (LE) [id number] 07:42:00 Test Item Value Reference Range Interpretation Comments LUPUS (SLE) PANEL AI 0.0-0.9 Systemic L upus Profile A RESULTS (test code = CHECK WEIGHER Ant ibodies <0.2 SLEPANELR) AI 0 .0 - 0.9 Traylor Antibodie s <0.2 AI 0.0 - 0.9 RA Latex Tu rbid. <10.0 IU/mL 0.0 - 13.9 Antichroma tin Antibodies <0.2 AI 0.0 - 0.9 Sjogr en's Anti-SS-A <0.2 AI 0.0 - 0.9 Sjo gren's Anti-SS-B <0.2 AI 0.0 - 0.9 Ant i-DNA (DS) Ab Qn <1 IU/mL 0 - 9 Negat thomas <5 Equivocal 5 - 9 Positive >9 T3,T4 [id number] 07:23:00 Test Item Value Reference Range Interpretation Comments T3 UPTAKE (test code = T3UP) 34.6 % UP 23.5-40.5 N T4 (THYROXINE) (test code = T4) 7.16 UG/DL 5.53-11.0 N T7 (FREE THYROXINE INDEX) (test 2.5 1.2-4.3 N code = T7) ADRENOCORTICOTROPIC [id number] 07:23:00 Test Item Value Reference Range Interpretation Comments ADRENOCORTICOTROPIC HORMONE (test code pg/ml 7.2-63.3 = ACTH) FOLLICLE STIM LEUTINIZING [id number] 07:23:00 Test Item Value Reference Range Interpretation Comments LUTEINIZING HORMONE 6.60 mIU/mL () (test code = LH) Adult Femal e: Fol licular phase 2.4 - 12.6 Ovulation phase 14.0 - 95.6 Lute al phase 1.0 - 11.4 Postmenopaus al 7.7 - 58.5LH INTERPRETIVE DA TA: MALES: 1.5-9.3 NORMAL MENSTRUATING FE MALES: FOL LICULAR PHASE: 1 .9-12.5 MID-CYCLE PHASE : 8.7-76.3 LUTEAL PH ASE: 0.5-16.9 POSTEMNOPAUSAL FEMALES: 15.9-54 ALL V AULES GIVEN IN OG-INTERNATI ONAL UNITS PER OG LITER FOLLICLE STIMULATING 7.0 mIU/mL () HORMONE (test code = Adult F emale: FSH) Fol licular phase 3.5 - 12.5 Ovulation phase 4.7 - 21.5 Lutea l phase 1.7 - 7.7 Postmenopausal 25.8 - 134.8FSH INTERPRETIVE DA TA: MALES: 1.4 - 18.1 NOMALLY MENSTRU ATING FEMALES: FOLLICULAR PH ASE: 2.5 - 10.2 MID-CYCLE PE AK: 3.4 - 33.4 LUTEAL PHAS E: 1.5 - 9.1 POSTMENOPAUSAL FEMALES: 23. 0 - 116.3All values given in og-Internati onals Unit per millil iter GROWTH HORMONE (HUMAN)2018-08-29 07:23:00 Test Item Value Reference Range Interpretation Comments GROWTH HORMONE (HUMAN) (test code = ng/ml <=13.0 GH) INSULIN-LIKE GROWTH FACTOR [id number] 07:23:00 Test Item Value Reference Range Interpretation Comments INSULIN-LIKE GROWTH FACTOR I (test ng/ml 81-225 code = INSLKGF1) [id number] 07:23:00 Test Item Value Reference Range Interpretation Comments PROLACTIN (test code = 42.1 ng/mL 4.8-23.3 H Perfo rmed At: HD PROLAC) [address] [id number] Etienne Farfan MD Ph:[phone] [id number] 21:15:00 Test Item Value Reference Range Interpretation Comments AMYLASE (test code = VERO) 90 UNITS/L 30-110 N - US HEAD AND [id number] 14:27:00 Patient Name: LEIGH FRYE Unit No: [id number] EXAMS: CPT CODE: [id number] US HEAD AND NECK 61061 Exam:Parathyroid ultrasound. Location: H9 Clinical Indication:38-year-old with elevated parathormone. Comparison:None Findings:Ultrasound of the neck was performed. A parathyroid mass or lymphadenopathy is not identified. The thyroid itself was not completely evaluated. However, the tv host identifies a 2.7 cm well- circumscribed ovoid mass of the right thyroid. Impression: 1. Parathyroid mass, lymphadenopathy is not identified. 2. 2.7 cm smoothly marginated mass of the right thyroid gland. The thyroid is not completely evaluated on this study. Follow-up with dedicated thyroid evaluation is recommended. at 1427 Reported and signed by: Ko Valles M.D. CC: Technologist: Christina Frost RDMS(OB)(AB) Transcrpt Date/Tm/Trnsp: 08/28/2018 (1427) [email or web address] Orig Print D/T: S: 08/28/2018 (4554) [facility] NAME: LEIGH FRYE [id number] [address] PHYS: [place] [address] : 1980 AGE: 38 SEX: F LOC: Z.535 A PHONE #: [phone] EXAM DATE: 08/28/2018 STATUS: ADM IN FAX #: [phone] RADIOLOGY NO: PAGE 1 Signed ReportVITAMIN [id number] 09:57:00 Test Item Value Reference Range Interpretation Comments VITAMIN B12 (test code = VITB12) 266 pg/mL 239-931 N FOLIC ACID BY [id number] 09:57:00 Test Item Value Reference Range Interpretation Comments FOLIC ACID BY SHAREE 6.2 ng/mL REFERENCE VALUES: (test code = FOLR) NORMAL: 2.76 - >20 ng/ML DEFICIENT : 1.04 - 2.79 ng/ML FE W/TOTAL IRON BINDING CAP.2018-08-27 09:43:00 Test Item Value Reference Range Interpretation Comments SERUM IRON (test code = IRON) 26 MCG/DL 37-170 L TOTAL IRON BINDING CAPACITY (test 428 MCG/DL 265-497 N code = TIBC) IRON SATURATION (test code = 6 % 12-57 L FESAT) FE W/TOTAL IRON BINDING CAP.2018-08-27 09:34:00 Test Item Value Reference Range Interpretation Comments SERUM IRON (test code = IRON) 26 MCG/DL 37-170 L TOTAL IRON BINDING CAPACITY (test MCG/DL 265-497 code = TIBC) IRON SATURATION (test code = FESAT) % 12-57 HGB [id number] 06:09:00 Test Item Value Reference Range Interpretation Comments HEMOGLOBIN (test code = HGB) 8.7 G/DL 11.2-14.9 L HEMATOCRIT (test code = HCT) 29.1 % 33.2-43.5 L PARATHYROID HORMONE [id number] 20:27:00 Test Item Value Reference Range Interpretation Comments PARATHYROID HORMONE INTACT (test 106.9 pg/mL 7.5-53.5 H code = PARAI) PLATELET [id number] 18:01:00 Test Item Value Reference Range Interpretation Comments PLATELET COUNT (test code = PLT) 305 K/MM3 129-368 N POC ARTERIAL BLOOD [id number] 15:07:00 Test Item Value Reference Range Interpretation Comments POC ARTERIAL BLOOD GAS PH (test 7.411 7.35-7.45 N code = POCPHA) POC ARTERIAL BLOOD GAS PCO2 (test 39.2 mmHg 35.0-45.0 N code = SMIQOC5K) POC ARTERIAL BLOOD GAS PO2 (test 82 75.0-100.0 N code = YZRGF9J) POC HCO3 ARTERIAL (test code = 25.1 MMOL/L 20.0-26.0 N CADIHZ2P) POC BASE EXCESS (test code = 0.0 MMOL/L -3.0-3.0 N POCBEA) POC O2 SATURATION (test code = 97 % 92.0-98.5 N POCO2S) FIO2 (test code = FIO2A) 21 % 21-100 N ABG DELIVERY (test code = KIRILL) Room Air ABG SITE (test code = SITEA) R Radial ALLENS TEST (test code = ALLENS) YES CHECK ~ POC LACTIC ACID (test code = 0.87 MMOL/L 0.4-2.0 N POCLAC) CORTISOL [id number] 10:38:00 Test Item Value Reference Range Interpretation Comments CORTISOL AM (test code = CORTAM) 4.55 ug/dL 4.46-22.7 N T4 [id number] 02:18:00 Test Item Value Reference Range Interpretation Comments T4 FREE (test code = T4F) 0.9 NG/DL 0.78-2.19 N THYROID STIMULATING [id number] 01:20:00 Test Item Value Reference Range Interpretation Comments THYROID STIMULATING 0.633 MIU/L 0.465-4.68 N Please b e aware that HORMONE (test code = bias re sults for TSH TSH) may occur forpa tient who are taking Biotin suppleme nts. T3,T4 [id number] 01:06:00 Test Item Value Reference Range Interpretation Comments T3 UPTAKE (test code = T3UP) 34.6 % UP 23.5-40.5 N T4 (THYROXINE) (test code = T4) 7.16 UG/DL 5.53-11.0 N T7 (FREE THYROXINE INDEX) (test 2.5 1.2-4.3 N code = T7) ADRENOCORTICOTROPIC [id number] 01:06:00 Test Item Value Reference Range Interpretation Comments ADRENOCORTICOTROPIC HORMONE (test code pg/ml 7.2-63.3 = ACTH) FOLLICLE STIM LEUTINIZING [id number] 01:06:00 Test Item Value Reference Range Interpretation Comments LUTEINIZING HORMONE (test code = See note LH) FOLLICLE STIMULATING HORMONE (test See Note code = FSH) GROWTH HORMONE (HUMAN)2018-08-26 01:06:00 Test Item Value Reference Range Interpretation Comments GROWTH HORMONE (HUMAN) (test code = ng/ml <=13.0 GH) INSULIN-LIKE GROWTH FACTOR [id number] 01:06:00 Test Item Value Reference Range Interpretation Comments INSULIN-LIKE GROWTH FACTOR I (test ng/ml 81-225 code = INSLKGF1) [id number] 01:06:00 Test Item Value Reference Range Interpretation Comments PROLACTIN (test code = PROLAC) NG/ML 4.8-23.3 CARDIAC [id number] 14:05:00[facility]0.02[facility] 2018-08-24 09:22:0033.0[facility] [id number] 09:22:41045Asmryqmj PenetfnYOIUZJYDISOBF7133-99-61 22:42:005.3[facility]annENDOCRINOLOGY 2018-08-23 22:42:001.93[facility]annSPECIAL [id number] 22:42:0041 [facility] HermannCHEM [id number] 10:34:86664Kyxofsnp HermannCHEM PANEL 2018-08-23 10:34:008.7[facility] HermannCHEM [id number] 10:34:45940Hcxscdwh HermannCHEM [id number] 10:34:64672Oaeaahjl HermannCHEM [id number] 10:34:004.1[facility]annCHEM [id number] 10:34:0011.1[facility] HermannCHEM [id number] 10:34:0026[facility] HermannCHEM [id number] 10:34:0015 [facility]annCHEM [id number] 10:34:000.73[facility] HermannCHEM PANEL 2018-08-23 10:34:0086[facility] NkjqpmyQLCDWSZJAXMQM4915-66-82 10:34:0031.4 [facility] ZeodmasTEGHYZHRXY1150-54-15 10:34:007.3[facility]annHEMATOLOGY 2018-08-23 10:34:0069.5[facility] DgjjvvzSSOEHUJTWN9183-47-05 10:34:0027.8[facility] XtirbmiCHMMPLAXTS9792-58-78 10:34:0031.5[facility] VbcvzcnFLFSOEJFCJ6283-59-22 10:34:00 Test Item Value Reference Range Interpretation Comments MCH (test code = MCH) 21.9 pg 27.0-31.0 [facility] UixqcrsUDWAUOMQQT5712-61-06 10:34:24622Muaighls HermannHEMATOLOGY 2018-08-23 10:34:0018.2[facility] AmgbguxNWJMODAUJC1355-44-48 10:34:005.3[facility] IfufohxFWZLKYYXAY0603-96-58 10:34:004.00[facility] FxosvgxEYWPMGMDDA7334-71-28 10:34:008.8[facility] KxhlyalIUFWFODUYB9682-99-47 10:34:0051.8[facility] [place] BCTWNIPVDR9351-90-39 10:34:007.1[facility] YzafwfjFEZRLOVORB0373-55-42 10:34:00 37.6[facility] WbvypbcRHLUJZGPRR2460-48-07 10:34:003.0[facility]annHEMATOLOGY 2018-08-23 10:34:00Normal (08/23/18 5:34 AM)[facility] CuaflfiZFCUHKUEXV0813-03-13 10:34:002.8[facility] HskuxuxKKIMGZQXXR6850-41-54 10:34:000.4[facility] [place] PBTYLJHJXQ5893-08-42 10:34:002.0[facility] UkmlrmfAHEVXYCGXB7451-25-49 10:34:000.2 [facility] PrdcpfdJOZDBJAUOO1085-66-56 10:34:000.5[facility] HermannHEMATOLOGY 2018-08-23 10:34:001+ (08/23/18 5:34 AM)[facility] FsexlbeLVJZHHIOOF8180-31-01 10:34:002+ *ABN*(08/23/18 5:34 AM)[facility] VcwwzooTRXGWZ0880-21-69 10:34:00 Test Item Value Reference Range Interpretation Comments VLDL (test code = VLDL) 28 1 [facility] VocpixiDKQQEA7459-67-78 10:34:60390Hwljzlyy MxcgqqgVSUYOX0309-13-95 10:34:23883Koethoyr JkgnxsuDZDNWZ1547-26-21 10:34:68441Sgdlnqfm HermannLIPIDS 2018-08-23 10:34:0038[facility] HwuvmmsAVUXPF0416-74-04 10:34:00 Test Item Value Reference Range Interpretation Comments CHD Risk (test code = CHD Risk) 5.16 1 3.90-5.80 [facility]annSPECIAL SGONURMUY4653-06-91 10:34:006.2[facility]annURINE AND [id number] 10:00:002[facility] IFORO9610-19-68 10:00:001 [facility] [id number] 10:00:003[facility] CNXZM2417-65-09 10:00:00Yellow *NA*(08/23/18 5:00 AM)[facility] [id number] 10:00:00Slight *ABN*(08/23/18 5:00 AM)[facility] [id number] 10:00:00Negative (08/23/18 5:00 AM)[facility] STOOL 2018-08-23 10:00:00Trace *ABN*(08/23/18 5:00 AM)[facility] STOOL 2018-08-23 10:00:00 Test Item Value Reference Range Interpretation Comments UA Spec Grav (test code = UA Spec 1.016 1 Grav) [facility] [id number] 10:00:00 Test Item Value Reference Range Interpretation Comments UA pH (test code = UA pH) 5.0 1 5.0-8.0 [facility] [id number] 10:00:00Negative (08/23/18 5:00 AM) [facility] [id number] 10:00:00Negative *NA*(08/23/18 5:00 AM) [facility] [id number] 10:00:00Negative *NA*(08/23/18 5:00 AM) [facility] [id number] 10:00:00Negative (08/23/18 5:00 AM) [facility] [id number] 10:00:00Negative *NA*(08/23/18 5:00 AM) [facility]annCARDIAC [id number] 23:05:0029[facility]annCARDIAC JPDRQPO6351-17-32 23:05:00<0.02[facility]annCARDIAC HKNDBSI6504-93-89 23:05:0073[facility]annCHEM LYDNK9690-97-48 23:05:0092[facility]annCHEM ARVZO9954-08-47 23:05:000.2[facility]annCHEM RPURJ4024-76-61 23:05:003.0 [facility]annCHEM YVVMR4316-11-95 23:05:007.4[facility]annCHEM PANEL 2018-08-22 23:05:009.2[facility]annCHEM IPEAR5983-07-02 23:05:0093[facility]annCHEM [id number] 23:05:009[facility]annCHEM [id number] 23:05:0019[facility]annCHEM BLSQF4178-72-16 23:05:0030[facility]annCHEM WKTCG4473-89-92 23:05:45619Ozarhgjw HermannCHEM UJODK3997-73-18 23:05:94095 [facility]annCHEM BKLJI1703-48-20 23:05:000.81[facility]annCHEM PANEL 2018-08-22 23:05:0012[facility]annCHEM [id number] 23:05:0089[facility]annCHEM XFSXS9025-28-66 23:05:004.1[facility]annCHEM KDYRJ4825-16-48 23:05:009.1[facility]annCHEM [id number] 23:05:00 Test Item Value Reference Range Interpretation Comments B/C Ratio (test code = B/C Ratio) 15 1 6-25 [facility]annCHEM [id number] 23:05:00 Test Item Value Reference Range Interpretation Comments A/G Ratio (test code = A/G Ratio) 0.7 1 0.7-1.6 [facility]annCHEM [id number] 23:05:004.4[facility]annCHEM PANEL 2018-08-22 23:05:001.9[facility]annCHEM [id number] 23:05:003.3[facility] VwbldwwFWCUYZSZWHLET1726-92-86 23:05:00Negative *NA*(08/22/18 6:05 PM)[facility] PxmfejzRGQOWXDFVK4166-26-79 23:05:0017.9[facility] IvuziplXJVOQVDIKV2785-79-39 23:05:23836Ojbqotom AazizujCVGRVYGMUM3702-61-03 23:05:004.24[facility] Otilio PPQUDKHSHD8556-98-29 23:05:009.2[facility] JvuqosvCYVQYTIDRY4863-63-32 23:05:00 31.6[facility] LyiqvcrCKWPLTVUHQ6702-26-76 23:05:007.4[facility]annHEMATOLOGY 2018-08-22 23:05:0029.1[facility] RwwychaRBUGKQCMKY8633-82-07 23:05:0068.6[facility] FdoajjxYAUTHKBJEG4902-79-88 23:05:00 Test Item Value Reference Range Interpretation Comments MCH (test code = MCH) 21.7 pg 27.0-31.0 [facility] MtfjwqdCQQFEHYREI4947-39-76 23:05:006.8[facility] HermannHEMATOLOGY 2018-08-22 23:05:00 Test Item Value Reference Range Interpretation Comments INR (test code = INR) 0.91 1 0.85-1.17 [facility] CmmizlnCQZSTVYPMW8169-44-07 23:05:00 Test Item Value Reference Range Interpretation Comments PT (test code = PT) 12.1 s 12.0-14.7 [facility] NnbdvjuEGNPTIPOOB1540-39-40 23:05:00 Test Item Value Reference Range Interpretation Comments PTT (test code = PTT) 26.3 s 22.9-35.8 [facility] ZgacasgTTFTOOFCDI0847-42-52 23:05:000.2[facility]annHEMATOLOGY 2018-08-22 23:05:003+ *NA*(08/22/18 6:05 PM)[facility] UblpeirCHHREQOHVQ1118-85-20 23:05:008.5[facility] FopqzffHLECLCOJNK6470-41-85 23:05:0034.3[facility] JPHXXWLNGW2083-05-81 23:05:003.1[facility] OmcnhwjZBLLFPBBIP7495-61-67 23:05:000.6 [facility] AaefminMPTPJRBFOW4579-90-39 23:05:002.3[facility]annHEMATOLOGY 2018-08-22 23:05:000.6[facility] QjeytvtJYDCPHRYVN5828-02-67 23:05:003.7[facility] QienphkNSBFTLIEVC4748-51-00 23:05:0053.5[facility] STOOL 2018-08-22 23:05:002[facility] IHLAF1366-95-24 23:05:001[facility] RVJDQ7132-15-23 23:05:00Negative *NA*(08/22/18 6:05 PM)[facility] ZLXFW8815-54-20 23:05:00Negative *NA*(08/22/18 6:05 PM)[facility] UGCPJ9010-02-99 23:05:00Negative *NA*(08/22/18 6:05 PM)[facility] ZLOOU6957-39-61 23:05:00Negative (08/22/18 6:05 PM)[facility] LTBIH3753-17-44 23:05:001[facility] STOOL 2018-08-22 23:05:00None Seen (08/22/18 6:05 PM)[facility] ST[facility] 2018-08-22 23:05:00Negative (08/22/18 6:05 PM)[facility] ST[facility] 2018-08-22 23:05:00Negative (08/22/18 6:05 PM)[facility] ST[facility]OL 2018-08-22 23:05:00Yellow *NA*(08/22/18 6:05 PM)[facility] ST[facility] 2018-08-22 23:05:00Negative (08/22/18 6:05 PM)[facility] 2018-08-22 23:05:00 Test Item Value Reference Range Interpretation Comments UA pH (test code = UA pH) 6.0 1 5.0-8.0 [facility] VDEXD0801-54-05 23:05:00 Test Item Value Reference Range Interpretation Comments UA Spec Grav (test code = UA Spec 1.017 1 Grav) [facility] DLPXN9566-66-28 23:05:00Clear (08/22/18 6:05 PM)[facility]annCARDIAC IWAJZVZ1225-45-15 08:05:00<0.02[facility]annCARDIAC ENZYMES 2018-08-18 04:32:0065[facility]annCARDIAC YDEULHQ5304-14-64 04:32:00<0.02 [facility]annCARD[facility]AC KOCLOCB8758-94-47 04:32:0040[facility]annCHEM PANEL 2018-08-18 04:32:0088[facility]annCHEM LTBBI9219-97-71 04:32:003.8[facility]annCHEM QQTTO5288-38-62 04:32:24059Askscjyw HermannCHEM FAWZD1579-14-74 04:32:008.9[facility]annCHEM CYBAU0960-61-28 04:32:0028[facility]annCHEM MXMQM7752-05-29 04:32:007.4[facility]annCHEM HCDTZ0327-62-81 04:32:003.1 [facility]annCHEM YPNGY7827-04-02 04:32:0012[facility]annCHEM PANEL 2018-08-18 04:32:0018[facility]annCHEM XDKMH8360-76-80 04:32:77066Jhotswjm HermannCHEM OIOZB2650-03-42 04:32:000.2[facility]annCHEM WLPBJ6540-99-26 04:32:0096[facility]annCHEM IYCAG3298-99-18 04:32:0014[facility]annCHEM FJLLH9166-06-89 04:32:000.84[facility]annCHEM ZUCAW6614-65-71 04:32:55554 [facility]annCHEM NNAMH9746-51-92 04:32:007.8[facility]annCHEM PANEL 2018-08-18 04:32:004.3[facility]annCHEM SMQEC1791-56-98 04:32:00 Test Item Value Reference Range Interpretation Comments B/C Ratio (test code = B/C Ratio) 17 1 -25 [facility]annCHEM BVYBJ4917-81-28 04:32:00 Test Item Value Reference Range Interpretation Comments A/G Ratio (test code = A/G Ratio) 0.7 1 0.7-1.6 [facility] TcfsuqwQQPZVUHUSTKYA3524-58-38 04:32:00Negative *NA*(08/17/18 11:32 PM) [facility] BmhpxqzQIHZDNKLVD7950-54-02 04:32:002+ *ABN*(08/17/18 11:32 PM)[facility] DcnhywjWRJNRFXYIW7009-96-22 04:32:000.2[facility] FevhntnJSZYYCQOFZ0580-45-31 04:32:000.6[facility] MkbuedaPZHPRGLMLW9995-44-67 04:32:000.1[facility] WNPDAUIAAJ2157-41-35 04:32:003.2[facility] TlmbuohHZHAIJVPOP2168-02-08 04:32:00 52.1[facility] QcolgfbISUOXJOBYB7317-91-24 04:32:0037.8[facility]annHEMATOLOGY 2018-08-18 04:32:001.0[facility] ZypszwhAXPMGJWHMT3441-63-09 04:32:002.1[facility] BjnyltfODQOIHTUHS1817-51-93 04:32:007.0[facility] VsvaczpMPETKHOQJE6995-88-58 04:32:004.4[facility] BtqwhstJIGXCBYEIQ5529-60-68 04:32:00 Test Item Value Reference Range Interpretation Comments PTT (test code = PTT) 25.2 s 22.9-35.8 [facility] TnlcwqbPUORTWJGKB3645-80-00 04:32:00 Test Item Value Reference Range Interpretation Comments INR (test code = INR) 0.95 1 0.85-1.17 [facility] DiuoapeDJTFINVNVS6215-12-53 04:32:00 Test Item Value Reference Range Interpretation Comments PT (test code = PT) 12.5 s 12.0-14.7 [facility] NtkpltsJDVFLHJDRB3220-05-19 04:32:009.3[facility]annHEMATOLOGY 2018-08-18 04:32:0030.0[facility] MoetohnUWDJSEDHMI9439-37-22 04:32:00 Test Item Value Reference Range Interpretation Comments MCH (test code = MCH) 21.8 pg 27.0-31.0 [facility] LxajfsbCJYRMZUGQS9675-79-62 04:32:0070.2[facility]annHEMATOLOGY 2018-08-18 04:32:44078Zhjteuaf EiadjyuWYYBHVIBOJ4301-84-19 04:32:0017.9[facility] SuzuyqbODQPLVQEVL2453-96-82 04:32:0031.0[facility] AvrtuzmADHOUYWETT3931-93-18 04:32:007.3[facility] HfpnsnaFBGULXGMID9640-95-03 04:32:004.28[facility] [place] OKKDSTPYEU8100-35-91 04:32:008.5[facility]UR[facility] HPNGJ8672-34-40 04:32:001[facility] XPGKQ3226-53-04 04:32:003[facility] [place] URINE AND JOUCP5651-45-80 04:32:00Negative (08/17/18 11:32 PM)[facility] [place] URINE AND PIMXZ1661-41-59 04:32:00Yellow *NA*(08/17/18 11:32 PM)[facility] URINE AND EEYPM3581-28-08 04:32:00Negative (08/17/18 11:32 PM)[facility] URINE AND SPZZY8600-43-36 04:32:00Negative *NA*(08/17/18 11:32 PM)[facility] MBKIW2458-19-93 04:32:00Negative (08/17/18 11:32 PM)[facility] HATJI8134-04-92 04:32:00Negative *NA*(08/17/18 11:32 PM)[facility] LETAG8055-34-71 04:32:00Negative (08/17/18 11:32 PM)[facility] XLLZU0429-57-64 04:32:00Negative *NA*(08/17/18 11:32 PM)[facility] SUEZT7167-16-47 04:32:00 Test Item Value Reference Range Interpretation Comments UA Spec Grav (test code = UA Spec 1.018 1 Grav) [facility] RWHEX4649-02-88 04:32:00 Test Item Value Reference Range Interpretation Comments UA pH (test code = UA pH) 5.0 1 5.0-8.0 [facility] CNGFC7431-79-60 04:32:00Clear (08/17/18 11:32 PM) [facility]annCARDIAC CQAQZKR5806-87-26 10:22:00<0.02[facility] FYUABTMUYU0016-12-66 07:58:006.9[facility] DkgugnnOHTCROTZHO6045-73-18 07:58:00 51.6[facility] CbrlomqRVSDCBGKTV7388-26-56 07:58:0039.0[facility]annHEMATOLOGY 2018-08-12 07:58:000.2[facility] NrsjtlmBJJFQZRJIX7856-88-53 07:58:002+ *ABN*(08/12/18 2:58 AM)[facility] NapwlceYINFMWMFDL5827-53-43 07:58:004.7[facility] EozhuryJHZUUQLJHI3361-53-44 07:58:000.6[facility] ObxegxcIXEHWCFQSF3379-18-38 07:58:003.5[facility] CxiikpyKRMQAHJQKG7777-36-57 07:58:000.2[facility] [place] HMGKMLQBOD8519-35-10 07:58:002.3[facility] WexoyytCREAQHTANQ2634-84-87 07:58:00 69.7[facility] HyngfjvGRBQQJJJPJ7289-89-49 07:58:00 Test Item Value Reference Range Interpretation Comments MCH (test code = MCH) 22.2 pg 27.0-31.0 [facility] TyhbhajZGAPMNGOAU5732-27-48 07:58:73030Ghmtrpqh HermannHEMATOLOGY 2018-08-12 07:58:0031.9[facility] XtgowvkKIYMYNVFDA8572-22-10 07:58:0017.4[facility] BivyvzpHBCJWPZZNO8932-27-99 07:58:007.4[facility] MfwgqcpROVILVPLII6812-92-44 07:58:004.56[facility] VnkltmaZNAWBKXRTM2712-02-48 07:58:0010.1[facility] [place] AZQEROQNGR6639-68-34 07:58:0031.7[facility] BokhteaQJEUMYVMCJ8241-96-04 07:58:00 9.1[facility] IobbdgiQBZYKVNKPM2287-23-97 07:58:00 Test Item Value Reference Range Interpretation Comments PTT (test code = PTT) 21.4 s 22.9-35.8 [facility] CahnpccMVCLXAJQZW6094-57-76 07:58:00 Test Item Value Reference Range Interpretation Comments PT (test code = PT) 12.9 s 12.0-14.7 [facility] VmytswlCODAFHXCCM6813-15-46 07:58:00 Test Item Value Reference Range Interpretation Comments INR (test code = INR) 0.99 1 0.85-1.17 [facility]annCARDIAC LSADLNK9939-29-69 07:36:0022[facility]annCARDIAC MFRUGMK9208-40-09 07:36:0042[facility]annCARDIAC MOHKJYA7471-00-54 07:36:00 <0.02[facility] HermannCHEM AJYXD8280-40-54 07:36:00 Test Item Value Reference Range Interpretation Comments A/G Ratio (test code = A/G Ratio) 0.8 1 0.7-1.6 [facility]annCHEM DMJHL4419-61-75 07:36:0011.8[facility] HermannCHEM PANEL 2018-08-12 07:36:00 Test Item Value Reference Range Interpretation Comments B/C Ratio (test code = B/C Ratio) 14 1 6-25 [facility]annCHEM LCGLM6512-03-23 07:36:004.7[facility]annCHEM PANEL 2018-08-12 07:36:0080[facility]annCHEM STMWI7929-75-70 07:36:0015[facility]annCHEM SETPL9192-24-42 07:36:44658Ikblnqbz HermannCHEM FXVGH3129-56-10 07:36:0020[facility]annCHEM GLNQT2714-62-00 07:36:000.3[facility]annCHEM YEBVH5323-45-43 07:36:000.92[facility]annCHEM VQVMN4662-90-59 07:36:82372 [facility]annCHEM TOZIA9346-09-77 07:36:0024[facility]annCHEM PANEL 2018-08-12 07:36:36905Nlywllzt HermannCHEM XMRQA8345-80-62 07:36:003.8[facility] HermannCHEM DTONZ3219-42-32 07:36:009.4[facility] HermannCHEM AVAIO7245-32-68 07:36:008.5[facility]annCHEM YXDUO7429-31-16 07:36:003.8[facility]annCHEM JYRSC8033-88-20 07:36:0087[facility]annCHEM YBNYV0465-99-42 07:36:0013 [facility] CdmocpfZLLYJCWCIPLGY4859-72-82 07:36:00Negative *NA*(08/12/18 2:36 AM) [facility]annANEMIA ZBRDN6915-11-27 08:23:0017[facility] HermannANEMIA STUDY 2018-07-30 08:23:23469Agztfhoj HermannANEMIA LJPIZ3001-50-07 08:23:004[facility] HermannANEMIA XHUWH1754-51-56 08:23:22454Cyassbxd HermannANEMIA EZBMW9662-42-63 08:23:0014[facility] HermannANEMIA HYBCH4210-27-36 08:23:61325Frhwjkuc [place] ANEMIA YNPQI8641-71-73 08:23:007.4[facility]annCARDIAC TZHAOHH1498-22-78 08:23:00<0.02[facility] HermannCHEM MCQJJ0148-87-74 08:23:01353Yolmjhdy Otilio XPQRFKFQKMSM9457-54-49 08:23:0030[facility] OtlrzmoORZCLNSNKZJR8341-41-68 08:23:00 7.3[facility] VphogujGRUZIYIKKICQ7871-69-07 08:23:33269Wpmarwox [place] GGGYPWEKVYWE8536-48-26 08:23:00 Test Item Value Reference Range Interpretation Comments B/C Ratio (test code = B/C Ratio) 18 1 6-25 [facility] DekoswtHWCQBRDOWNXH7503-80-44 08:23:009.1[facility] HermannELECTROLYTES 2018-07-30 08:23:0010.8[facility] YlcutvgKFTWYVBSWMHH1943-91-37 08:23:008[facility] XjnzokzKSOPCVMCQUZT7884-87-86 08:23:0014[facility] VkhvvbiSULATPVRFHNW2374-56-18 08:23:00 Test Item Value Reference Range Interpretation Comments A/G Ratio (test code = A/G Ratio) 0.7 1 0.7-1.6 [facility] QsqriopEQPHEIAJGUFF1546-71-79 08:23:004.3[facility] HermannELECTROLYTES 2018-07-30 08:23:04696Otghemlm MphkfhqSACNRMXLKKBR3385-82-31 08:23:0099[facility] EliyxnrBRRHMUOVDGYQ4735-87-83 08:23:003.8[facility] UyzppdwJSLGARVFMLOP3865-94-39 08:23:45235Tautsagd GjcjiirSGETYVIEOATI2971-22-05 08:23:000.79[facility] [place] HPACEKFIFFAF2156-45-08 08:23:0014[facility] QrtepdpHRSIWNKLDBYS2415-86-33 08:23:00 95[facility] FgzhiuvBBHHPBETGWLX0991-78-75 08:23:000.3[facility] HermannELECTROLYTES 2018-07-30 08:23:003.0[facility] QqichjkCXRZUHMFEJ0826-66-06 08:23:0031.4[facility] SutjuyuWAXSJTMRZR8841-57-93 08:23:00 Test Item Value Reference Range Interpretation Comments MCH (test code = MCH) 22.3 pg 27.0-31.0 [facility] CvadchsVECBGATJMM8395-07-37 08:23:0071.1[facility] HermannHEMATOLOGY 2018-07-30 08:23:0030.0[facility] VdiutesWWWJDMGGKN7496-77-70 08:23:009.4[facility] RonyuhuTQRXCDJSWP6410-45-81 08:23:85339Pkrobjcu BxhjipnCRMGBJORIG7944-78-97 08:23:0017.4[facility] XblisudPZJEWBNZHG8707-01-25 08:23:007.8[facility] UOHKEXRKVW6816-88-08 08:23:004.22[facility] WzfkoqbLMTPADAWNI0308-96-28 08:23:00 9.6[facility] ThlizujEIGDOLTSAA9090-24-22 08:23:000.1[facility] HermannHEMATOLOGY 2018-07-30 08:23:000.7[facility] MkbikgjGTHSLOLCMC0992-79-74 08:23:001.8[facility] HprfhsyOOPPKUAIGN6128-93-84 08:23:006.8[facility] JnijsplLHHUGTEYKJ4270-09-21 08:23:000.1[facility] OokkcawBQYKZIKQLP8554-44-36 08:23:002+ *ABN*(07/30/18 3:23 AM)[facility] KovpzraKDJBQOMQVZ3581-82-42 08:23:007.3[facility] HermannHEMATOLOGY 2018-07-30 08:23:0018.8[facility] CepeydeRRXETBMCWO8021-26-92 08:23:0071.8[facility] FoopugsPISCQLMJDL6418-52-58 08:23:000.8[facility] VeaauphOETIDJYTAH9205-35-64 08:23:001.3[facility] GazoulsDZGWLWASDH5603-98-84 08:23:001.7[facility] [place] OWVKSV1536-23-97 08:23:00 Test Item Value Reference Range Interpretation Comments VLDL (test code = VLDL) 10 1 [facility] RxqqtwjLQBINW1446-61-72 08:23:00 Test Item Value Reference Range Interpretation Comments CHD Risk (test code = CHD Risk) 3.94 1 3.90-5.80 [facility] YnzempdSWQGJK0928-89-86 08:23:0050[facility] PaufhrpXFQVOH1854-38-51 08:23:0050[facility] IrzidscUPFBYS4872-28-78 08:23:23929Elufxkyd HermannLIPIDS 2018-07-30 08:23:04369Nnlxjpde HermannSPECIAL WJJYIPDTC4383-71-95 08:23:006.0 [facility] YUEZT1632-99-08 06:20:00Negative (07/30/18 1:20 AM) [facility]annCARDIAC FOKVNRN2595-68-96 05:10:00<0.02[facility] HermannCHEM WJMPK4369-95-81 05:10:001.0[facility] HermannCHEM IFMDW6822-17-76 05:10:003.7 [facility]annCHEM NBDPM4371-43-48 05:10:001.8[facility]UR[facility] STOOL 2018-07-30 02:04:00Negative (07/29/18 9:04 PM)[facility] STOOL 2018-07-30 02:04:00Small *ABN*(07/29/18 9:04 PM)[facility] STOOL 2018-07-30 02:04:00Negative *NA*(07/29/18 9:04 PM)[facility] STOOL 2018-07-30 02:04:00Negative (07/29/18 9:04 PM)[facility] STOOL 2018-07-30 02:04:003.0[facility] TXXOQ9781-51-91 02:04:00 Test Item Value Reference Range Interpretation Comments UA Spec Grav (test code = UA Spec 1.026 1 Grav) [facility] LWMVA1977-50-08 02:04:00 Test Item Value Reference Range Interpretation Comments UA pH (test code = UA pH) 6.5 1 5.0-8.0 [facility] WFTMI1842-79-18 02:04:003[facility] BRDEC8870-16-61 02:04:006[facility] GLBBW2122-18-11 02:04:0013 [facility] AEPIX4400-09-46 02:04:00Yellow *NA*(07/29/18 9:04 PM) [facility] GEWCS6082-20-48 02:04:00Slight *ABN*(07/29/18 9:04 PM) [facility] QgypjsnIBJFU7265-65-11 01:34:00Positive 3*ABN*(07/29/18 8:34 PM)[facility]annCARDIAC CCSCPJY9732-68-37 01:30:0044[facility]annCARDIAC ENZYMES 2018-07-30 01:30:0034[facility]annCARDIAC CBZVJVE9027-17-01 01:30:00<0.02 [facility]annCHEM NPEOP4270-84-65 01:30:002.8[facility]annCHEM PANEL 2018-07-30 01:30:51805Ldcmfncr HermannCHEM IAURY6189-69-38 01:30:001.8[facility] HermannCHEM WVTOS1008-25-02 01:30:004.5[facility]annCHEM TSIGN5313-30-45 01:30:0012.5[facility] HermannCHEM KYBIT4740-53-57 01:30:00 Test Item Value Reference Range Interpretation Comments A/G Ratio (test code = A/G Ratio) 0.7 1 0.7-1.6 [facility]annCHEM HLHQX8058-14-94 01:30:00 Test Item Value Reference Range Interpretation Comments B/C Ratio (test code = B/C Ratio) 13 1 6-25 [facility]annCHEM QIFAI0314-50-15 01:30:0065[facility]annCHEM PANEL 2018-07-30 01:30:00331Wsxmwhvi HermannCHEM NWGFF0808-49-07 01:30:000.4[facility]annCHEM VMFHS7757-40-65 01:30:0014[facility]annCHEM CKTGD5127-48-05 01:30:008[facility]annCHEM ZZGIA0812-73-00 01:30:003.2[facility]annCHEM ADNOL0350-38-50 01:30:001.09[facility]annCHEM TIHJV8978-68-01 01:30:50391 [facility]annCHEM XTWYA8072-16-94 01:30:003.5[facility] HermannCHEM PANEL 2018-07-30 01:30:34468Jgjmczcg HermannCHEM ARWXP7011-22-93 01:30:007.7[facility] HermannCHEM MTDMR0424-78-77 01:30:57845Xreeuwav HermannCHEM ABQQN0665-01-44 01:30:0014[facility] HermannCHEM OZXYY9961-06-07 01:30:009.3[facility] HermannCHEM OOSNP5720-19-70 01:30:0027[facility] CyajnfeWPMWGGBJDY0907-57-08 01:30:000.1 [facility] IzxqpxzRIOMWICAYM4202-95-02 01:30:002+ *ABN*(07/29/18 8:30 PM)[facility] HftjilgYMIRLRJYRF5613-44-88 01:30:009.1[facility] YfgqtjdSEMSQUKPWH8243-56-46 01:30:001.3[facility] PripixsWKTERTAIDU2345-11-56 01:30:000.7[facility] HCBFWTNMXX3099-62-28 01:30:0081.3[facility] NljvnaxFUDOUHGDFV3000-36-47 01:30:00 11.3[facility] FeclhocHTBNBKKIUK5457-84-43 01:30:006.3[facility] HermannHEMATOLOGY 2018-07-30 01:30:000.7[facility] CmepsvuUQGWMMUQBQ7183-52-29 01:30:000.4[facility] ZvyqpkxOCAGIMFVER4774-20-95 01:30:00 Test Item Value Reference Range Interpretation Comments PTT (test code = PTT) 32.2 s 22.9-35.8 [facility] SaukhgyDXKTXDNHKG0401-29-05 01:30:00 Test Item Value Reference Range Interpretation Comments INR (test code = INR) 1.08 1 0.85-1.17 [facility] EosxgdoGTIWNVQFAX7013-86-52 01:30:00 Test Item Value Reference Range Interpretation Comments PT (test code = PT) 13.8 s 12.0-14.7 [facility] FtavqxwTRPPRCRWRM7403-35-61 01:30:0030.3[facility] HermannHEMATOLOGY 2018-07-30 01:30:25742Igecqvnd DfnvyqdEINHOUYYAT0906-39-74 01:30:0017.1[facility] WlmdxjxRQYVFLZCMY0141-72-31 01:30:00 Test Item Value Reference Range Interpretation Comments MCH (test code = MCH) 22.5 pg 27.0-31.0 [facility] TzoiqzhGPGIHMNKUQ9861-72-60 01:30:0070.9[facility] HermannHEMATOLOGY 2018-07-30 01:30:008.1[facility] SasjagwUZQXUEUADG2660-21-41 01:30:0031.7[facility] XoexlseACBJQSZFWU8250-87-71 01:30:009.6[facility] WignzdeKJUIUNOHGQ7012-86-51 01:30:0011.3[facility] WybierdULLHFAPIGQ9917-87-66 01:30:004.27[facility] [place] CHEM ZHUWX7321-20-31 01:21:000.08[facility] ErkxhraJVXWZFABGNREH0670-46-39 01:21:00<1[facility] HermannCBC W/PLT COUNT & AUTO RMPYAJAOAIJY4063-68-81 14:09:00 Test Item Value Reference Range Interpretation Comments WHITE BLOOD CELL COUNT (BEAKER) 4.9 K/ L 4.0-10.0 (test code = 775) RED BLOOD CELL COUNT (BEAKER) 3.62 M/ L 4.00-5.00 L (test code = 761) HEMOGLOBIN (BEAKER) (test code = 10.2 GM/DL 12.0-15.0 L 410) HEMATOCRIT (BEAKER) (test code = 31.4 % 36.0-45.0 L 411) MEAN CORPUSCULAR VOLUME (BEAKER) 86.9 fL 82.0-99.0 (test code = 753) MEAN CORPUSCULAR HEMOGLOBIN 28.0 pg 27.0-33.0 (BEAKER) (test code = 751) MEAN CORPUSCULAR HEMOGLOBIN CONC 32.3 GM/DL 32.0-36.0 (BEAKER) (test code = 752) RED CELL DISTRIBUTION WIDTH 12.7 % 10.3-14.2 (BEAKER) (test code = 412) PLATELET COUNT (BEAKER) (test 192 K/CU MM 150-430 code = 756) MEAN PLATELET VOLUME (BEAKER) 6.8 fL 6.5-10.5 (test code = 754) NUCLEATED RED BLOOD CELLS 0 /100 WBC 0-0 (BEAKER) (test code = 413) NEUTROPHILS RELATIVE PERCENT 42 % (BEAKER) (test code = 429) LYMPHOCYTES RELATIVE PERCENT 46 % (BEAKER) (test code = 430) MONOCYTES RELATIVE PERCENT 7 % (BEAKER) (test code = 431) EOSINOPHILS RELATIVE PERCENT 6 % (BEAKER) (test code = 432) BASOPHILS RELATIVE PERCENT 0 % (BEAKER) (test code = 437) NEUTROPHILS ABSOLUTE COUNT 2.06 K/ L 1.80-8.00 (BEAKER) (test code = 670) LYMPHOCYTES ABSOLUTE COUNT 2.25 K/ L 1.48-4.50 (BEAKER) (test code = 414) MONOCYTES ABSOLUTE COUNT (BEAKER) 0.33 K/ L 0.00-1.30 (test code = 415) EOSINOPHILS ABSOLUTE COUNT 0.28 K/ L 0.00-0.50 (BEAKER) (test code = 416) BASOPHILS ABSOLUTE COUNT (BEAKER) 0.02 K/ L 0.00-0.20 (test code = 417) 0.00(MANUAL DIFFERENTIAL)2016-10-05 14:09:00 Test Item Value Reference Range Interpretation Comments TOTAL COUNTED (BEAKER) (test code = 1351) WBC MORPHOLOGY (BEAKER) (test code = Normal 487) PLT MORPHOLOGY (BEAKER) (test code = Normal 486) RBC MORPHOLOGY (BEAKER) (test code = Normal 762) BASIC METABOLIC [id number] 07:38:00 Test Item Value Reference Range Interpretation Comments SODIUM (BEAKER) 136 meq/L 136-145 (test code = 381) POTASSIUM (BEAKER) 4.5 meq/L 3.5-5.1 (test code = 379) CHLORIDE (BEAKER) 107 meq/L 98-107 (test code = 382) CO2 (BEAKER) (test 25 meq/L 22-29 code = 355) BLOOD UREA NITROGEN 13 mg/dL 7-21 (BEAKER) (test code = 354) CREATININE (BEAKER) 0.78 mg/dL 0.57-1.25 (test code = 358) GLUCOSE RANDOM 91 mg/dL 70-105 (BEAKER) (test code = 652) CALCIUM (BEAKER) 8.5 mg/dL 8.4-10.2 (test code = 697) EGFR (BEAKER) (test 84 mL/min/1.73 ESTIMA SHANTI GFR IS code = 1092) sq m NOT ACCURATE CREATININE CLEARANCE IN PREDICTING GLOMERULAR FILTRATION RATE . ESTIMATED GFR I S NOT APPLICABLE FOR DIALYSIS PATIEN TS. URINE [id number] 12:16:00 Test Item Value Reference Range Interpretation Comments CULTURE (BEAKER) (test ESCHERICHIA COLI A > 100,000 col/mL code = 1095) Escherichia col i Amikacin (test code = S 1) Ampicillin + Sulbactam R (test code = 6) Aztreonam (test code = S 32) Cefazolin (test code = 9) Cefepime (test code = S 51) Cefoxitin (test code = S 68) Ceftazidime (test code S = 27) Ceftriaxone (test code S = 52) Ertapenem (test code = S 38) Gentamicin (test code R = 18) Levofloxacin (test R code = 22) Meropenem (test code = S 34) Nitrofurantoin (test S code = 23) Piperacillin + R Tazobactam (test code = 29) Tetracycline (test R code = 2) Tigecycline (test code = 133) Tobramycin (test code R = 25) Trimethoprim + S Sulfamethoxazole (test code = 47) BASIC METABOLIC [id number] 06:39:00 Test Item Value Reference Range Interpretation Comments SODIUM (BEAKER) 137 meq/L 136-145 (test code = 381) POTASSIUM (BEAKER) 4.1 meq/L 3.5-5.1 (test code = 379) CHLORIDE (BEAKER) 108 meq/L 98-107 H (test code = 382) CO2 (BEAKER) (test 22 meq/L 22-29 code = 355) BLOOD UREA NITROGEN 20 mg/dL 7-21 (BEAKER) (test code = 354) CREATININE (BEAKER) 0.84 mg/dL 0.57-1.25 (test code = 358) GLUCOSE RANDOM 93 mg/dL 70-105 (BEAKER) (test code = 652) CALCIUM (BEAKER) 8.3 mg/dL 8.4-10.2 L (test code = 697) EGFR (BEAKER) (test 77 mL/min/1.73 ESTIMA SHANTI GFR IS code = 1092) sq m NOT ACCURATE CREATININE CLEARANCE IN PREDICTING GLOMERULAR FILTRATION RATE . ESTIMATED GFR I S NOT APPLICABLE FOR DIALYSIS PATIEN TS. CBC W/PLT COUNT & AUTO [id number] 06:24:00 Test Item Value Reference Range Interpretation Comments WHITE BLOOD CELL COUNT (BEAKER) 4.7 K/ L 4.0-10.0 (test code = 775) RED BLOOD CELL COUNT (BEAKER) 3.48 M/ L 4.00-5.00 L (test code = 761) HEMOGLOBIN (BEAKER) (test code = 10.1 GM/DL 12.0-15.0 L 410) HEMATOCRIT (BEAKER) (test code = 30.3 % 36.0-45.0 L 411) MEAN CORPUSCULAR VOLUME (BEAKER) 86.9 fL 82.0-99.0 (test code = 753) MEAN CORPUSCULAR HEMOGLOBIN 28.9 pg 27.0-33.0 (BEAKER) (test code = 751) MEAN CORPUSCULAR HEMOGLOBIN CONC 33.2 GM/DL 32.0-36.0 (BEAKER) (test code = 752) RED CELL DISTRIBUTION WIDTH 12.8 % 10.3-14.2 (BEAKER) (test code = 412) PLATELET COUNT (BEAKER) (test 191 K/CU MM 150-430 code = 756) MEAN PLATELET VOLUME (BEAKER) 6.9 fL 6.5-10.5 (test code = 754) NUCLEATED RED BLOOD CELLS 0 /100 WBC 0-0 (BEAKER) (test code = 413) NEUTROPHILS RELATIVE PERCENT 45 % (BEAKER) (test code = 429) LYMPHOCYTES RELATIVE PERCENT 41 % (BEAKER) (test code = 430) MONOCYTES RELATIVE PERCENT 8 % (BEAKER) (test code = 431) EOSINOPHILS RELATIVE PERCENT 5 % (BEAKER) (test code = 432) BASOPHILS RELATIVE PERCENT 1 % (BEAKER) (test code = 437) NEUTROPHILS ABSOLUTE COUNT 2.13 K/ L 1.80-8.00 (BEAKER) (test code = 670) LYMPHOCYTES ABSOLUTE COUNT 1.93 K/ L 1.48-4.50 (BEAKER) (test code = 414) MONOCYTES ABSOLUTE COUNT (BEAKER) 0.36 K/ L 0.00-1.30 (test code = 415) EOSINOPHILS ABSOLUTE COUNT 0.24 K/ L 0.00-0.50 (BEAKER) (test code = 416) BASOPHILS ABSOLUTE COUNT (BEAKER) 0.03 K/ L 0.00-0.20 (test code = 417) 0.00HEMOGLOBIN [id number] 09:41:00 Test Item Value Reference Range Interpretation Comments HEMOGLOBIN A1C (BEAKER) (test code = 5.9 % 4.3-6.1 368) BASIC METABOLIC [id number] 07:57:00 Test Item Value Reference Range Interpretation Comments SODIUM (BEAKER) 135 meq/L 136-145 L (test code = 381) POTASSIUM (BEAKER) 4.0 meq/L 3.5-5.1 (test code = 379) CHLORIDE (BEAKER) 105 meq/L 98-107 (test code = 382) CO2 (BEAKER) (test 23 meq/L 22-29 code = 355) BLOOD UREA NITROGEN 28 mg/dL 7-21 H (BEAKER) (test code = 354) CREATININE (BEAKER) 1.24 mg/dL 0.57-1.25 (test code = 358) GLUCOSE RANDOM 98 mg/dL 70-105 (BEAKER) (test code = 652) CALCIUM (BEAKER) 8.1 mg/dL 8.4-10.2 L (test code = 697) EGFR (BEAKER) (test 49 mL/min/1.73 ESTIMA SHANTI GFR IS code = 1092) sq m NOT ACCURATE CREATININE CLEARANCE IN PREDICTING GLOMERULAR FILTRATION RATE . ESTIMATED GFR I S NOT APPLICABLE FOR DIALYSIS PATIEN TS. CBC W/PLT COUNT & AUTO [id number] 06:57:00 Test Item Value Reference Range Interpretation Comments WHITE BLOOD CELL COUNT 6.7 K/ L 4.0-10.0 (BEAKER) (test code = 775) RED BLOOD CELL COUNT 3.58 M/ L 4.00-5.00 L (BEAKER) (test code = 761) HEMOGLOBIN (BEAKER) 10.7 GM/DL 12.0-15.0 L (test code = 410) HEMATOCRIT (BEAKER) 30.8 % 36.0-45.0 L (test code = 411) MEAN CORPUSCULAR 86.2 fL 82.0-99.0 VOLUME (BEAKER) (test code = 753) MEAN CORPUSCULAR 29.9 pg 27.0-33.0 HEMOGLOBIN (BEAKER) (test code = 751) MEAN CORPUSCULAR 34.7 GM/DL 32.0-36.0 HEMOGLOBIN CONC (BEAKER) (test code = 752) RED CELL DISTRIBUTION 14.4 % 10.3-14.2 H WIDTH (BEAKER) (test code = 412) PLATELET COUNT 204 K/CU MM 150-430 Discordant re sult (BEAKER) (test code = compar ed to previous 756) result; clinica l correlation required. MEAN PLATELET VOLUME 7.1 fL 6.5-10.5 (BEAKER) (test code = 754) NUCLEATED RED BLOOD 0 /100 WBC 0-0 CELLS (BEAKER) (test code = 413) NEUTROPHILS RELATIVE 61 % PERCENT (BEAKER) (test code = 429) LYMPHOCYTES RELATIVE 30 % PERCENT (BEAKER) (test code = 430) MONOCYTES RELATIVE 6 % PERCENT (BEAKER) (test code = 431) EOSINOPHILS RELATIVE 2 % PERCENT (BEAKER) (test code = 432) BASOPHILS RELATIVE 1 % PERCENT (BEAKER) (test code = 437) NEUTROPHILS ABSOLUTE 4.11 K/ L 1.80-8.00 COUNT (BEAKER) (test code = 670) LYMPHOCYTES ABSOLUTE 1.98 K/ L 1.48-4.50 COUNT (BEAKER) (test code = 414) MONOCYTES ABSOLUTE 0.42 K/ L 0.00-1.30 COUNT (BEAKER) (test code = 415) EOSINOPHILS ABSOLUTE 0.14 K/ L 0.00-0.50 COUNT (BEAKER) (test code = 416) BASOPHILS ABSOLUTE 0.04 K/ L 0.00-0.20 COUNT (BEAKER) (test code = 417) 0.00PREGNANCY SCREEN, [id number] 15:12:00 Test Item Value Reference Range Interpretation Comments TEST URINE (BEAKER) (test Negative code = 583) URINALYSIS W/ [id number] 15:12:00 Test Item Value Reference Range Interpretation Comments COLOR (BEAKER) (test code = Yellow 470) CLARITY (BEAKER) (test code = Clear 469) SPECIFIC GRAVITY UA (BEAKER) 1.024 1.001-1.035 (test code = 468) PH UA (BEAKER) (test code = 5.5 5.0-8.0 467) PROTEIN UA (BEAKER) (test code 20 mg/dL Negative A = 464) GLUCOSE UA (BEAKER) (test code Negative Negative = 365) KETONES UA (BEAKER) (test code Negative Negative = 371) BILIRUBIN UA (BEAKER) (test Negative Negative code = 462) BLOOD UA (BEAKER) (test code = Large Negative A 461) NITRITE UA (BEAKER) (test code Negative Negative = 465) LEUKOCYTE ESTERASE UA (BEAKER) Negative Negative (test code = 466) UROBILINOGEN UA (BEAKER) (test 0.2 mg/dL 0.2-1.0 code = 463) RBC UA (BEAKER) (test code = > /HPF 519) WBC UA (BEAKER) (test code = 6 /HPF 520) MUCUS (BEAKER) (test code = Rare 1574) SQUAMOUS EPITHELIAL (BEAKER) 1 /HPF (test code = 516) SOURCE(BEAKER) (test code = Urine, Voided 7058) BASIC METABOLIC [id number] 14:18:00 Test Item Value Reference Range Interpretation Comments SODIUM (BEAKER) 137 meq/L 136-145 (test code = 381) POTASSIUM (BEAKER) 4.1 meq/L 3.5-5.1 (test code = 379) CHLORIDE (BEAKER) 103 meq/L 98-107 (test code = 382) CO2 (BEAKER) (test 25 meq/L 22-29 code = 355) BLOOD UREA NITROGEN 28 mg/dL 7-21 H (BEAKER) (test code = 354) CREATININE (BEAKER) 1.10 mg/dL 0.57-1.25 (test code = 358) GLUCOSE RANDOM 103 mg/dL 70-105 (BEAKER) (test code = 652) CALCIUM (BEAKER) 9.6 mg/dL 8.4-10.2 (test code = 697) EGFR (BEAKER) (test mL/min/1.73 INSUFFIC IENT CLINICAL code = 1092) sq m DATA TO CALCULA TE ESTIMATED GFR. [id number] 13:51:00 Test Item Value Reference Range Interpretation Comments PROTIME (BEAKER) (test code = 13.9 seconds 11.7-14.7 759) INR (BEAKER) (test code = 370) 1.1 <=5.9 PARTIAL THROMBOPLASTIN TIME 25.6 seconds 22.5-36.0 (BEAKER) (test code = 760) RECOMMENDED COUMADIN/WARFARIN INR THERAPY RANGESSTANDARD DOSE: 2.0 - 3.0 Includes: PROPHYLAXIS forvenous thrombosis, systemic embolization; TREATMENT for venous thrombosis and/or pulmonary embolus.HIGH RISK: Target INR is 2.5-3.5 for patients with mechanical heart valves.CBC W/PLT COUNT & AUTO DIFFERENTIAL 2016-10-02 13:38:00 Test Item Value Reference Range Interpretation Comments WHITE BLOOD CELL COUNT (BEAKER) 8.4 K/ L 4.0-10.0 (test code = 775) RED BLOOD CELL COUNT (BEAKER) 4.40 M/ L 4.00-5.00 (test code = 761) HEMOGLOBIN (BEAKER) (test code = 12.9 GM/DL 12.0-15.0 410) HEMATOCRIT (BEAKER) (test code = 38.1 % 36.0-45.0 411) MEAN CORPUSCULAR VOLUME (BEAKER) 86.6 fL 82.0-99.0 (test code = 753) MEAN CORPUSCULAR HEMOGLOBIN 29.2 pg 27.0-33.0 (BEAKER) (test code = 751) MEAN CORPUSCULAR HEMOGLOBIN CONC 33.8 GM/DL 32.0-36.0 (BEAKER) (test code = 752) RED CELL DISTRIBUTION WIDTH 12.8 % 10.3-14.2 (BEAKER) (test code = 412) PLATELET COUNT (BEAKER) (test 258 K/CU MM 150-430 code = 756) MEAN PLATELET VOLUME (BEAKER) 6.6 fL 6.5-10.5 (test code = 754) NUCLEATED RED BLOOD CELLS 0 /100 WBC 0-0 (BEAKER) (test code = 413) NEUTROPHILS RELATIVE PERCENT 66 % (BEAKER) (test code = 429) LYMPHOCYTES RELATIVE PERCENT 27 % (BEAKER) (test code = 430) MONOCYTES RELATIVE PERCENT 6 % (BEAKER) (test code = 431) EOSINOPHILS RELATIVE PERCENT 1 % (BEAKER) (test code = 432) BASOPHILS RELATIVE PERCENT 0 % (BEAKER) (test code = 437) NEUTROPHILS ABSOLUTE COUNT 5.51 K/ L 1.80-8.00 (BEAKER) (test code = 670) LYMPHOCYTES ABSOLUTE COUNT 2.24 K/ L 1.48-4.50 (BEAKER) (test code = 414) MONOCYTES ABSOLUTE COUNT (BEAKER) 0.53 K/ L 0.00-1.30 (test code = 415) EOSINOPHILS ABSOLUTE COUNT 0.05 K/ L 0.00-0.50 (BEAKER) (test code = 416) BASOPHILS ABSOLUTE COUNT (BEAKER) 0.03 K/ L 0.00-0.20 (test code = 417) 0.00
--- OUTSIDE RECORDS SUMMARY | 2020-03-01 14:25 | XMS REPORT | Summary of Care ---
:1980 Author Organization [facility] Address [address] [place] [id number] Care Team Providers Name Role Phone Denton Thomas I Primary Care Provider Reason for Visit Reason Comments Error Encounter Details Date Type Department Care Team Description 10/24/2019 Telephone [facility] and Janak Blanco MD Error Clinics [address] [place] [phone] [place] [address] Allergies Active Allergy Reactions Severity Noted Date Comments Losartan Dizziness 12/04/2019 Metformin Diarrhea 12/05/2019 documented as of this encounter (statuses as of 12/06/2019) Medications Medication Sig Dispensed Refills Start Date End Date Status traMADol 100 mg Take 50 mg by 0 Suspended capsule mouth 3 (three) times daily. furosemide 40 mg Take 1 tablet by 14 tablet 0 10/23/2019 Suspended tabletIndications: mouth daily. Saddle embolus of pulmonary artery without acute cor pulmonale, unspecified chronicity Additional Information escitalopram oxalate 20 mg Take 1 tablet by 14 tablet 0 2019 Suspended tabletIndications: Saddle mouth daily. embolus of pulmonary artery without acute cor pulmonale, unspecified chronicity Additional Information potassium chloride 10 mEq CR Take 2 tablets by 14 tablet 0 05/2019 Suspended tabletIndications: Saddle mouth daily. 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 Alcohol Use Drinks/Week oz/Week Comments Never Alcohol Habits Answer Date Recorded How often do you have a drink containing alcohol? Never 08/14/2019 How many drinks containing alcohol do you have on a typical Not asked day when you are drinking? How often do you have six or more drinks on one occasion? No t asked Financial Resource Strain Answer Date Recorded How hard is it for you to pay for the very basics like food, Hard 10/20/2019 housing, medical care, and heating? Food Insecurity Answer Date Recorded Within the past 12 months, you worried that your food would Often true 10/20/2019 run out before you got money to buy more. Within the past 12 months, the food you bought just didn't O ften true 10/20/2019 last and you didn't have money to get more. Transportation Needs Answer Date Recorded In the past 12 months, has lack of transportation kept you f rom No 10/20/2019 medical appointments or from getting medications? In the past 12 months, has lack of transportation kept you f rom Yes 10/20/2019 meetings, work, or getting things needed for daily living? Sex Assigned at Date Recorded Not on file COVID-19 Exposure Response Date Recorded In the last month, have you been in contact with No / Unsure 12/04/2019 6:50 PM CDT someone who was confirmed or suspected to have Coronavirus / COVID-19? documented as of this encounter Last Filed Vital Signs Not on filedocumented in this encounter Plan of Treatment Health Maintenance Due Date Last Done Comments PNEUMOCOCCAL 0-64 YEARS COMBINED 02/23/1986 SERIES (1 of 3 - PCV13) EYE EXAM 02/23/1990 URINE MICROALBUMIN 02/23/1990 Depression Screening 1992 FOOT EXAM 02/23/1998 DTaP,Tdap,and Td Vaccines (1 - 02/23/1999 Tdap) PAP SMEAR 08/28/2007 08/27/2004, 12/13/2003 INFLUENZA VACCINE (#1) 2019 HgA1C 02/15/2020 08/15/2019 LDL-C 08/14/2020 08/15/2019 CREATININE (SERUM) 12/04/2020 12/05/2019, 12/04/2019, 10/23/2019, Additional history exists documented as of this encounter Results Not on filedocumented in this encounter Additional Health Concerns Infection Onset Date Last Indicated Resolved Time COVID-19 Rule Out 12/04/2019 12/04/2019 12/04/2019 8: 04 PM CDT Extended Contact- CDiff 12/06/2019 12/06/2019 documented as of this encounter Insurance Payer Benefit Plan / Subscriber ID Effective Phone Address T ype Group Dates MEDICAID MEDICAID SSI PENDING 2019-[address] [address] documented as of this encounter
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
--- OUTSIDE RECORDS SUMMARY | 2020-03-01 14:25 | XMS REPORT | Summary of Care ---
:1980 Author Organization [facility] Address [address] [place] [address] Care Team Providers Name Role Phone Scarlett Thomas Primary Care Provider Reason for Visit Reason Comments Transition Of Care Encounter Details Date Type Department Care Team Description 12/20/2019 Transition of Care [facility] Davis Torres Transition Of Care Health [facility] [address] [place] [id number] Allergies Active Allergy Reactions Severity Noted Date Comments Losartan Dizziness 12/04/2019 Metformin Diarrhea 12/05/2019 documented as of this encounter (statuses as of 12/20/2019) Medications Medication Sig Dispensed Refills Start Date [...] acute cor pulmonale, unspecified chronicity Additional Information amLODIPine 10 mg tablet Take 1 tablet by 30 tablet 0 0 Suspended mouth daily. apixaban 5 mg Take 1 tablet by 60 tablet 0 12/06/2019 Suspended tabletIndications: pulmonary mouth 2 (two) times thromboembolism daily. Indications: a clot in the lung aspirin 81 mg chewable Take 1 tablet by 0 12/06/2019 Suspended tabletIndications: Chest pain mouth daily. in adult Additional Information atomoxetine 80 mg Take 1 capsule by 0 12/06/2019 Suspended capsule mouth daily. atorvastatin 80 mg Take 1 tablet by 0 12/06/2019 Suspended tablet mouth at bedtime. metoprolol tartrate 25 Take 1 tablet by 0 12/06/2019 Suspended mg tablet mouth 2 (two) times daily. montelukast 10 mg tablet Take 1 tablet by 0 12/06/19 20 Suspended mouth daily. QUEtiapine 300 mg tablet Take 1 tablet by 0 12/06/19 20 Suspended mouth at bedtime. QUEtiapine 50 mg tablet Take 1 tablet by 0 0 Suspended mouth every morning. metroNIDAZOLE 500 mg Take 1 tablet by 42 tablet 0 12/06/2019 0 12/20/2019 Suspended tabletIndications: C. mouth every 8 difficile colitis (eight) hours for 14 days. Additional Information azilsartan med-chlorthalidone (EDARBYCLOR) Take by mouth daily. 0 Suspended 40-12.5 mg Tab dapagliflozin (FARXIGA) 10 mg tablet Take by mouth daily. 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 documented as of this encounter Last Filed Vital Signs Not on filedocumented in this encounter Miscellaneous Notes Telephone Encounter - Marilyn Torres - 12/20/2019 3:01 PM CDTCHP referral submitted to Rafaela Atkins CM. documented in this encounter Plan of Treatment Health Maintenance Due Date Last Done Comments PNEUMOCOCCAL 0-64 YEARS COMBINED 02/23/1986 SERIES (1 of 3 - PCV13) EYE EXAM 02/23/1990 URINE MICROALBUMIN 02/23/1990 Depression Screening 1992 FOOT EXAM 02/23/1998 DTaP,Tdap,and Td Vaccines (1 - 02/23/1999 Tdap) PAP SMEAR 08/28/2007 08/27/2004, 12/13/2003 INFLUENZA VACCINE (#1) 2019 HgA1C 06/15/2020 12/17/2019, 08/15/2019 LDL-C 08/14/2020 08/15/2019 CREATININE (SERUM) 12/18/2020 12/19/2019, 12/18/2019, 12/17/2019, Additional history exists documented as of this encounter Results Not on filedocumented in this encounter Additional Health Concerns Infection Onset Date Last Indicated Resolved Time Extended Contact- CDiff 12/06/2019 12/06/2019 documented as of this encounter Insurance Payer Benefit Plan / Subscriber ID Effective Phone Address T ype Group Dates MEDICAID MEDICAID SSI PENDING 2019-Pres [address] [employer] Pending [place] [address] documented as of this encounter
--- OUTSIDE RECORDS SUMMARY | 2020-03-01 14:25 | XMS REPORT | Summary of Care ---
:1980 Author Organization [address] [address] Care Team Providers Name Role Phone William Scarlett Primary Care Provider Reason for Visit Reason Comments Referral/consult [facility]P referral Encounter Details Date Type Department Care Team Description 12/20/[address] [facility] Rafaela Atkins RN Referral/consult [address] ([facility]P refer ral) [place], [place] [address] Allergies Active Allergy Reactions Severity Noted Date [...] Signs Not on filedocumented in this encounter Progress Notes Rafaela Atkins RN - 12/20/2019 3:18 PM CDT80% Readmit Risk [facility] REFERRAL: This patient has had 3 admissions in the past couple of months. 39 y/o unfunded. 39 year-old female with PMH of morbid obesity, HTN, DM II, chronic diastolic CHF, paroxysmal A. Fib, tobacco abuse and recent PE on Eliquis therapy who presented to the ED with chest pain. Inthe ED, ECG and troponin were negative. CTA chest showed no evidence of new or residual PE. Telemetry and serial troponins were negative. She was found to have a UTI and was started on ceftriaxone. Shesubsequently developed diarrhea. C. Diff testing was positive and she was started on PO metronidazole. She was transitioned to PO ciprofloxacin. She was medically cleared to discharge home and is to follow-up as below." In reviewing her labs, Hgb A1C ok, BNP ok, BP ok. However, she is unfunded and keeps coming to the hospital for her symptoms. Hx substance abuse. May benefit from focused outreach to pursue county indigent resources and establish primary care, or involvement. IP CM providing some medications. Thanks, Albaro DAS CM will call the patient once she has been discharged home. Thank you for the referral. THOMAS Badillo, RN, [facility] Outpatient Wine FermenterLaceworkerWake Forest [facility] O: [phone] M: [phone] documented in this encounter Plan of Treatment [...] Universi ty Pending [place] [phone] documented as of this encounter
--- OUTSIDE RECORDS SUMMARY | 2020-03-01 14:25 | XMS REPORT | Continuity of Care Document ---
:1980 Author Organization [facility] Address [address] [place] [address] Care Team Providers Name Role Phone PHYSICIAN Primary Care Physician Unavailable Allergies, Adverse Reactions, Alerts Allergen Type Severity Reaction Last Updated Verified Status Adhesive Allergy Severe November 02, Yes Active agent 2019 Losartan Allergy Severe ACH, November Yes Active ([id number]) DIFFICULTY 2017 BREATHING Medications Medication Status Dose [...] ORAL Every 6 18 November etaminophen Hours 8th, 2019 Needed 2:05pm as needed for Pain Protoco l Metoprolol Active 25 ORAL Twice A 30 30 Novemb Tartrate Day for r 2017 nsion 1:24pm [...] ne 300/30 Mg * ed Hours , 5th, (acet aminophen). As 2019 2019 Needed 8:31pm [...] Discontinu 1 ORAL Three 30 10 Septembe [place] ed Times r , , Daily 2018 2019 As 11:13pm Needed as needed for Anxiety Enalapril Discontinu 2 ORAL Daily Roslyn Maleate/Hctz ed 2016 Enalapril Discontinu 1 ORAL [...] er tuan * for 2017, Hyperte 1:24pm 2019 nsion Lisinopril & Discontinu 1 ORAL Twice A October Hydrochlorothi ed Day , tuan 20/25MG * 2019 Loratadine Discontinu 1 ORAL Daily 30 18 January Novembe ed for , r 27, Allergy 2019 2018 Symptom 11:13pm s Lovastatin Discontinu 40 ORAL Once 30 30 Septemb ed Daily r 15, er At 2017, Bedtime 1:24pm 2018 for Hld Methylpredniso Discontinu 1 ORAL As Octoberus t FOLLOW lone ed Directe , , INSTRUCTIONS d for 2019 2019 ON DOSEPAK Inflamm 2:05pm ation Metoprolol Discontinu 1 ORAL Daily 18 September Succinate ed 2016 Montelukast Discontinu 1 ORAL Daily 30 30 be Sodium ed r 2018 Naproxen Discontinu 1 [...] ed Day for r 15, er Pe 2017, 1:24pm 2019 Rivaroxaban Discontinu 20 ORAL Once 30 30 Novembe Octobe r ed Daily r 15, , for Pe 2017 2018 1:24pm Rivaroxaban Discontinu 1 ORAL Daily 18 September ed 2016 Tamsulosin Hcl Discontinu 1 ORAL Daily 14 Nat [place] ed for , 2nd, Stent 2017 2018 Pain 10:16am Tramadol Hcl Discontinu 100 ORAL Twice A 15 30 October ed Day as , needed 2019 for Pain Tramadol Hcl Discontinu 50 ORAL Every 6 15 30 b ed Hours er As , Needed [...] Pulmonary embolism Resolved Panic anxiety syndrome Resolved Abdominal tenderness in left flank Resol angela Abdominal tenderness in right flank Reso lved Bilateral flank pain Resolved Procedures Procedure Date Performed Status EMERGENCY [...] CT ANGIOGRAPHY CHEST October 19, 2019 completed [id number] COVID-19 AMP PRB October 19, 2019 completed [...] chest, single view November 30, 2019 completed X-ray of chest, single view December 03, 2019 completed Computed tomography of abdomen and December 03, 2019 comp leted pelvis with contrast Relevant Diagnostic Tests and/or Laboratory Data Laboratory Results Test Date/Time Result Interpretation Reference Result Comment Performing Range Site White Blood November 6.7 4.0-11.5 [facility], [address] Count 2019 [facility] 25169 4:34pm Red Blood Kimberly 4.13 3.80-5.20 [facility], [address] Count 2019 [facility] 11014 4:34pm Hemoglobin Kimberly 12.0 10.5-15.7 [facility], [address] 2019 [facility] 19032 4:34pm Hematocrit Kimberly 36.5 34.0-50.0 [facility], [address] 2019 [facility] 99892 4:34pm Mean Kimberly 88.4 86-100 [facility], [address] [facility] Corpuscular 2019 [facility] [place] [address] Volume 4:34pm Mean Kimberly 29.1 26.2-33.4 [facility], [address] Corpuscular 2019 [place] [place] [address] Hemoglobin 4:34pm Mean Kimberly 32.9 30-34 [facility], [address] [facility] Corpuscular 2019 [place] [place] [address] Hemoglobin 4:34pm Concent Red Cell November 14.2 12.0-15.5 [facility], [address] Distribution 2019 [place] [place] [address] Width 4:34pm Platelet Kimberly 223 165-450 [facility], [address] Count 2019 [facility] 6[address] 4:34pm Absolute [place] 13.7 [facility], [address] Immature 2019 [place] [address] Platelet 3:37am Fraction Immature October 7.5 0-8 [facility], [address] Platelet 2019 [facility] X [address] Fraction 3:37am Mean Platelet November 9.5 9.4-12.6 [facility], [address] Volume 2019 [facility] 09854 4:34pm Neutrophils Kimberly 64.9 44.4-80.1 [facility], [address] (%) (Auto) 2019 [place] [address] 4:34pm Immature Kimberly 0.5 0.0-0.4 [facility], [address] Granulocyte % 2019 [facility] [place] [address] (Auto) 4:34pm Lymphocytes Kimberly 24.8 10.0-50.0 [facility], [address] (%) (Auto) 2019 [facility] 83107 4:34pm Monocytes (%) November 5.4 3.6-12.0 [facility], [facility] (Auto) 2019 [place] [address] 4:34pm Eosinophils Kimberly 3.8 0.0-5.4 [facility], [address] (%) (Auto) 2019 [place] [address]48414 4:34pm Basophils (%) Kimberly 0.6 0.1-1.2 [facility], [address] (Auto) 2019 [place] [address]48414 4:34pm Neutrophils # Kimberly 4.32 1.56-6.13 [facility], [address] (Auto) 2019 [place] [address] 4:34pm Absolute Kimberly 0.0 0.0-0.03 [facility], [address] Immature 2019 [place] [id number] Granulocyte 4:34pm (auto Lymphocytes # Kimberly 1.7 1.18-3.74 [facility], [address] (Auto) 2019 [place] [address] 4:34pm Monocytes # Kimberly 0.36 0.24-0.86 [facility], [address] (Auto) 2019 [place] [address] 4:34pm Eosinophils # Kimberly 0.25 0.04-0.36 [facility], [address] (Auto) 2019 [place] [address] 4:34pm Basophils # Kimberly 0.04 0.01-0.08 [facility], [address] (Auto) 2019 [place] [address] 4:34pm Nucleated Red Kimberly 0 0-0.2 [facility], [address] Blood Cells % 2019 [place] [address] 4:34pm Nucleated Red Kimberly 0 0 [facility], [address] Blood Cells # 2019 [place] [address] 4:34pm D-Dimer October 18, 2557 <500 Results have [facility], 104 2019 been broadcasted [place] [address] 10:41pm to patient's location and called to (MILE). By LA FARMER 10/20/19 @0205 Prothrombin November 9.8 10.3-12.3 THERAPEUTIC [facility], [address] Time 2019 LEVEL: 1.5 to [place] [address] 4:34pm 1.9 times normal range of PT Prothromb November 0.90 Recommended [facility], [address] Time 2019 therapeutic [facility] [address] International 4:34pm range for Ratio patients receiving warfarin (coumadin) therapy: INR is 2.0 to 3.0Recommended range for patients with mechanical prosthetic heart valves: INR is 2.5 to 3.5 Activated Kimberly 26.8 22.5-37.0 [facility], [address] [facility] Partial 2019 [facility] [address] Thromboplast 4:34pm Time Urine Color Kimberly COLORLESS [facility], [facility] 2019 [facility] 17671 7:00pm Urine Kimberly CLEAR CLEAR [facility], [address] [facility] Appearance 2019 [facility] 39705 7:00pm Urine Glucose Kimberly NEGATIVE NEGATIVE [facility], [facility] (UA) 2019 [place] [address]484[address] 7:00pm Urine Kimberly NEGATIVE NEGATIVE [facility], [facility] Bilirubin 2019 [facility] 80327 7:00pm Urine Ketones Kimberly NEGATIVE NEGATIVE [facility], [facility] 2019 [facility] 32681 7:00pm Urine Kimberly 1.011 1.003-1.03 [facility], [address] [facility] Specific 2019 0 [facility] [address] [place] 7:00pm Urine Blood Kimberly 1+ (SMALL) NEGATIVE [facility], 1 04 [facility] 2019 [facility] 28895 7:00pm Urine pH November 7.000 5-9 [facility], [facility] 2019 [facility] 43184 7:00pm Urine Protein November TRACE NEGATIVE [facility], [facility] 2019 [facility] 47397 7:00pm Urine Kimberly NORMAL 0.2-1.0 [facility], [address] [facility] Urobilinogen 2019 [facility] [address] 7:00pm Urine Nitrate Kimberly NEGATIVE NEGATIVE [facility], [facility] 2019 [facility] 41228 7:00pm Urine Kimberly NEGATIVE NEGATIVE [facility], [address] [facility] Leukocyte 2019 [facility] [address] Esterase 7:00pm Urine RBC Kimberly 1-5 0-5 [facility], [address] [facility] 2019 [facility] [address]507 7:00pm Urine WBC Kimberly 1-5 0-5 [facility], [facility] 2019 [facility] 11121 7:00pm Urine Kimberly 1-5 0-5 [facility], [address] [facility] Epithelial 2019 [facility] [address]68 Cells 7:00pm Urine November SMALL(1+) None [facility], [address] [facility] Bacteria 2019 Detect [facility] 59500 7:00pm Urine Casts November None None [facility], 10 4 [facility] 2019 Detected Detect [place] [address]484[address] 7:00pm Urine Culture November NO [facility], [address] [facility] Reflexed 2019 [place] 20548414 7:00pm POC Capillary October 174 70.0 - 110 [facility], [address] [facility] Blood Glucose 2019 [place] [id number] (Chem) 11:06am Random November 145 74-106 [facility], [address] [facility] Glucose 2019 [place] 20548414 4:34pm Blood Urea December 02 6-20 [facility], [address] [facility] Nitrogen 2019 [place] 20548414 4:34pm Serum November 277 280-300 [facility], [address] [facility] Osmolality 2019 [place] 20548414 4:34pm Creatinine November 0.6 0.50-0.90 [facility], [address] [facility] 2019 [place] [address]48414 4:34pm Glomerular Kimberly > 60.00 GFR RESULTS ARE [facility], [address] [facility] Filtration 2019 REPORTED IN [place] [address] Rate Calc 4:34pm mL/min/1.73m2.No rmal GFR: >60mL/minModerat mariela decreased GFR: 30-59 mL/minSeverely decreased GFR: 15-29 mL/minKidney Failure (or Dialysis): <15 mL/minThe calculated eGFR is not valid for patients younger than 18 years or older than 75 years. BUN/Creatinin December 10.7 12-20 [facility], [address] Ratio 2019 [facility] [address]60 4:34pm Sodium Level November 137 135-145 [facility], [address] [facility] [address] 2019 [place] [address]48414 4:34pm Potassium November 4.3 3.5-5.2 [facility], [address] [facility] Level 2019 [place] 20548414 4:34pm Chloride November 101 98-108 [facility], [address] [facility] [address] Level 2019 [place] 20548414 4:34pm Carbon November 25 21-32 [facility], [address] [facility] Dioxide Level 2019 [facility] [address]327 4:34pm Anion Gap November 15.3 12-20 [facility], [facility] 2019 [facility] 90234 4:34pm Calcium Level November 9.5 8.6-10.0 [facility], [facility] 2019 [facility] 88979 4:34pm Magnesium Kimberly 1.8 1.6-2.6 [facility], 104 Level 2019 [facility] 66295 3:57pm Total Protein November 7.2 6.6-8.7 [facility], [facility] 2019 [facility] 77301 4:34pm Albumin November 3.8 3.5-5.2 [facility], [address] [facility] 2019 [facility] 94429 4:34pm Globulin Kimberly 3.4 [facility], [facility] 2019 [facility] 28849 4:34pm Albumin/Globu November 1.1 >1.0 [facility], [address] [facility] lenny Ratio 2019 [facility] 77901 4:34pm Total Kimberly < 0.3 0.0-1.2 [facility], [address] [facility] Bilirubin 2019 [facility] 54656 4:34pm Aspartate November 22 15-32 [facility], [address] [facility] Amino Transf 2019 [facility] [place] [address] (AST/SGOT) 4:34pm Alanine November 28 0-33 [facility], [address] [facility] Aminotransfer 2019 [place] [address] ase 4:34pm (ALT/SGPT) Lipase December 19 13-60 [facility], [facility] 2019 [facility] [address]1928 4:34pm KD-Qia-J-Type November 364 0-125 [facility], [address] [facility] Natriuretic [address] [place] [address] Peptide 4:34pm Total Kimberly 127 35-105 [facility], [address] [facility] Alkaline 2019 [facility] [address]365 Phosphatase 4:34pm Cholesterol October 168 150-200 [facility], [address] [facility] [address] Level 2019 [facility] X [address] 7:10am Triglycerides October 104 <150 [facility], 104 Level 2019 [facility] X [address] 7:10am HDL October 36 >65 HDL EXPECTED [facility], 1 [facility] Cholesterol 2019 VALUES:FEMALES: [place] [address] 7:10am >65 mg/dL NO RISK 45-65 mg/dL MODERATE RISK <45 mg/dL HIGH RISKMALES: >55 mg/dL NO RISK 35-55 mg/dL MODERATE RISK <35 mg/dL HIGH RISK LDL October 121 <100 LDL Expected [facility], 1 [address] [facility] Cholesterol 2019 Values:Optimal [facility] 99581 7:10am <100 mg/dLNear optimal/above optimal 100-129 mg/dLBorderline high 130-159 mg/dLHigh 160-189 mg/dLVery high >190 mg/dL Coronary October 4.666 [facility], Heart Disease 2019 [facility] [place] [address] Risk Ratio 7:10am CHOLESTEROL GUIDELINES [facility], LUNG [...] Average 13.5 11.0 Thyroid October 3.65 0.36-3.74 [facility], Stimulating 2019 [facility] [address] Hormone (TSH) 7:10am Serum October NEGATIVE NEG If a negative [place] [address] 2019 result is [facility] [address] Test, 2:57pm obtained but Qualitative is suspected, a new specimen should be collected after 48-72 hours and tested. If waiting 48 hrs is not medically advisable, the test result should be confirmed with at quantitative hCG assay. Thyroxine October 5.2 4.5-11.7 [facility] (T4) 2019 [facility] X [address] 7:10am Anti-Thrombin October 163 75-135 An elevated [facility] A# [id number], [address] [facility], [address] III Activity 2019 antithrombin HOUS [facility] [address] 2:19pm activity is of no known clinicalsignific ance. Direct Xa inhibitor anticoagulants such asrivaroxaban, apixaban and edoxaban will lead to spuriouslyelevat ed antithrombin activity levels possibly masking adeficiency.Perf ormed at: BN - [facility] [address] [id number] Director: Kristen Varela MD, Phone: [phone] Functional October 138 73-180 [facility] A # [id number], [address] [facility], [address] Protein C 2019 [place] [address] 2:19pm Creatine November 60 20-180 [facility], [address] Kinase 2019 [facility] 00512 4:34pm Troponin I November < 0.30 0.0-0.5 Published [facility], [address] 2019 clinical studies [facility] [address] 6:51pm have shown elevations of cTnI in patients with myocardial injury, as seen in unstable angina pectoris, cardiac contusions, and heart transplants. Elevations have also been seen in patients with rhabdomyolysis and polymyositis.Norma vated troponin levels point to myocardial injury, but are not necessarily indicative of an ischemic mechanism. The term [place] should be used when there is evidence [...] clinical examination and other findings. Creatine November 1.5 0.0-3.6 DIAGNOSTIC [facility], ST Kinase MB 2019 CITERIA: [facility] 77014 4:34pm CKMB CKMB RELATIVE INDEX -SUGGESTIVE OF NON-AMI < or = 5 N/AGRAY ZONE (INCONCLUSIVE) > 5 < or = 4SUGGESTIVE OF AMI >5 > 4 Myoglobin October < 25 25-58 [facility], [address] [facility] 87431 7:08pm Diagnostic Imaging Reports Report Dictated Date/Time Dictated By Status October 20, 2019 5:13am DORENE WELLS MD complet ed Patient: LEIGH CORONADO MR#: [id number] 69 : [address] JACKSON MCFARLANE MD Pt Status: REG ER Pt Location: ER Date/Time: 10/20/19 0030 Primary Care Physician: . CONSUELO PHYSICIAN Accession #: Technologist(s): NASIM RENEE Procedure(s): [id number] CT/CT ANGIO CHEST W LEESA Farfan Signed [...] MD 10/20/2019 5:13 AM CDT Transcribed By: [employer] SIGNED < electronically signed by DORENE WELLS MD> 2 4 DORENE WELLS MD October 20, 2019 5:14am DORENE WELLS MD [facility] ed Patient: LEIGH CORONADO MR#: [id number] 69 : [address] JACKSON MCFARLANE MD Pt Status: [facility] ER Pt Location: ER Date/Time: 10/19/19 2230 Primary Care Physician: . NO PHYSICIAN Accession #: Technologist(s): QUINTIN PALUMBO Procedure(s): [id number] RAD/CHEST 1 VIEW Signed EXAM: XR Chest, [...] 10/20/2019 5:14 AM CDT Transcribed By: [facility] [employer] SIGNED < electronically signed by DORENE WELLS MD> 3 4 DORENE WELLS MD October 20, 2019 8:40pm CEDRICK SALOMON MD [facility] Patient: LEIGH CORONADO MR#: [id number] 69 : 1980 Pt Location: ER Date/Time: 10/19/19 Primary Care Physician: . NO PHYSICIAN Signed [facility] Test Date: 2019-10-19 Pat Name: LEIGH Roth epartment: R oom: Gender: Female T echnician: URIEL : 1980 R equested By: Naheed MCFARLANE Order Number: [id number] R jazmin MD: Polly Teran Measurements Intervals A xis Rate: 89 P : OK: Q RS: 20 QRSD: 98 T : 47 QT: 380 QTc: 463 Interpretive Statements Sinus rhythm Low voltage, precordial leads Baseline wander in lead(s) V1 Electronically Signed On 10-20-2019 20:40 :51 CDT by Polly Teran Transcribed By: [employer] SIGNED <electronically signed by CEDRICK SALOMON MD> 39 39 CEDRICK SALOMON MD October 24, 2019 JSOE ARMANDO NOEL DO completed 8:03pm Patient: LEIGH CORONADO MR#: [id number] 69 : [address] ARISTEO WOODS MD Pt Status: REG ER Pt Location: ER Date/Time: 10/24/191942 Primary Care Physician: . CONSUELO PHYSICIAN Technologist(s): CALVIN HAILE Procedure(s): [id number] RAD/CHEST 1 VIEW Signed EXAM DESCRIPTION: CHEST 1 VIEW CLINICAL HISTORY:39 years Female, chest pain Comparison: Chest radiograph dated 10/19 FINDINGS: No focal lung consolidation. No pleural effusion. No pneumothorax. Cardiomediastinal silhouette is unchang ed. No acute osseous abnormality. IMPRESSION: No acute cardiopulmonary disease. Electronically signed by: Jose Armando rubalcava DO 10/24/2019 8:03 PM CDT Transcribed By: [employer] SIGNED < electronically signed by JOSE ARMANDO NOEL DO> 02 03 JOSE ARMANDO NOEL DO October 24, 2019 JOSE ARMANDO NOEL DO completed 10:01pm Patient: LEIGH CORONADO MR#: [id number] 69 : 1980 Order[address] DrKoby: ARISTEO WOODS MD Pt Status: REG ER Pt Location: ER Date/Time: 10/24/192053 Primary Care Physician: . CONSUELO PHYSICIAN Technologist(s): QUINTIN PALUMBO Procedure(s): [id number] CT/CT ANGIO CHEST W PE PROTOCO L [...] DO 10/24/2019 10:01 PM CDT Transcribed By: [employer] SIGNED < electronically signed by JOSE ARMANDO NOEL DO> 00 01 JOSE ARMANDO NOEL DO October 25, 2019 CEDRICK SALOMON MD completed 6:19pm Patient: LEIGH CORONADO MR#: [id number] 69 : 1980 Pt Location: M M2 Date/Time: 10/24/191942 Primary Care Physician: . NO PHYSICIAN Signed [facility] Test Date: 2019-10-24 Pat Name: LEIGH Roth epartment: R oom: Gender: Female T echnician: URIEL : 1980 R equested By: MD WOODS Order Number: [id number] R jazmin MD: Polly TeranA.A.C Measurements Intervals A xis Rate: 83 P : OK: Q RS: 31 QRSD: 106 T : 34 QT: 426 QTc: 501 Interpretive Statements Sinus rhythm Low voltage, precordial leads Borderline prolonged QT interval Electronically Signed On 10-25-2019 18:19: 16 CDT by Polly Teran.A.A.C Transcribed By: [employer] SIGNED <electronically signed by CEDRICK SALOMON MD> 18 18 CEDRICK SALOMON MD October 27, 2019 CEDRICK SALOMON MD completed 11:31pm Patient: LEIGH CORONADO MR#: [id number] 69 : 1980 Pt Location: M M2 Date/Time: 10/26/19 Primary Care Physician: . NO PHYSICIAN Signed [facility] Test Date: 2019-10-26 Pat Name: LEIGH Roth epartment: R oom: 214 M Gender: Female T echnician: SH : 1980 R equested By: Howard SALOMON Order Number: [id number] Sunitha wu MD: Polly Teran.A.A.C Measurements Intervals A xis Rate: 72 P : 49 OK: 150 Q RS: 86 QRSD: 105 T : 25 QT: 421 QTc: 461 Interpretive Statements Sinus rhythm Consider Inferior infarct, old Electronically Signed On 10-27-2019 23:31: 51 CDT by Polly Teran Transcribed By: [employer] SIGNED <electronically signed by CEDRICK SALOMON MD> 30 30 CEDRICK SALOMON MD November 03, 2019 MILE FORMAN MD complete d 8:12pm Patient: LEIGH CORONADO MR#: [id number] 69 : [address] TAMMY AVELAR MD Pt Status: REG ER Pt Location: ER Date/Time: 11/03/191924 Primary Care Physician: Koby CORDERO PHYSICIAN Technologist(s): QUINTIN PALUMBO Procedure(s): [id number] CT/CT ANGIO CHEST W PE PROTOCO L [...] MD 11/03/2019 8:12 PM CDT Transcribed By: [facility] [employer] SIGNED < electronically signed by MILE FORMAN MD> 11 12 MILE FORMAN MD November 06, 2019 CEDRICK SALOMON MD completed 8:29pm Patient: LEIGH CORONADO MR#: [id number] 69 : 1980 Pt Location: M Date/Time: 11/05/19 0700 Primary Care Physician: . NO PHYSICIAN Signed [facility] Test Date: 2019-11-05 Pat Name: LEIGH Roth epartment: R oom: 218 M Gender: Female T echnician: : 1980 R equested By: Jamel SERNA Order Number: [id number] R jazmin MD: Polly Teran.A.A.C Measurements Intervals A xis Rate: 74 P : 15 OK: 165 Q RS: 27 QRSD: 104 T : 29 QT: 407 QTc: 452 Interpretive Statements Sinus rhythm Electronically Signed On 11-06-2019 20:29 :42 CDT by Polly Teran.A.A.C Transcribed By: [employer] SIGNED <electronically signed by CEDRICK SALOMON MD> 28 28 CEDRICK SALOMON MD November 06, 2019 CEDRICK SALOMON MD completed 8:33pm Patient: LEIGH CORONADO MR#: [id number] 69 : 1980 Pt Location: M M2 Date/Time: 11/03/19 1911 Primary Care Physician: . NO PHYSICIAN Signed [facility] Test Date: 2019-11-03 Pat Name: LEIGH Roth epartment: R oom: Gender: Female T echnician: RH : 1980 R equested By: MD WOODS Order Number: [id number] R jazmin MD: Polly Teran Measurements Intervals A xis Rate: 134 P : OK: Q RS: 61 QRSD: 91 T : 27 QT: 328 QTc: 490 Interpretive Statements Atrial fibrillation RSR' in V1 or V2, probably normal varian t Borderline prolonged QT interval Electronically Signed On 11-06-2019 20:33 :32 CDT by Polly Teran Transcribed By: [employer] SIGNED <electronically signed by CEDRICK SALOMON MD> 32 32 CEDRICK SALOMON MD November 15, 2019 YOAN ZARCO MD completed 3:29pm Patient: LEIGH CORONADO MR#: [id number] 69 : 1980 Order[address] DrKoby: TJ PARISI DO Pt Status: REG ER Pt Location: ER Date/Time: 11/15/19 1436 Primary Care Physician: . CONSUELO PHYSICIAN Technologist(s): CHARLOTTE HERNÁNDEZ Procedure(s): [id number] RAD/CHEST 1 VIEW Signed EXAMINATION: XR CHEST [...] MD 11/15/2019 3:29 PM CDT Transcribed By: [employer] SIGNED < electronically signed by YOAN ZARCO MD> 1529 1530 YOAN ZARCO MD November 17, 2019 CEDRICK SLAOMON MD completed 4:20am Patient: LEIGH CORONADO MR#: [id number] 69 : 1980 Pt Location: ER Date/Time: 11/15/19 1436 Primary Care Physician: . NO PHYSICIAN Signed [facility] Test Date: 2019-11-15 Pat Name: LEIGH Roth epartment: R oom: Gender: Female T echnician: DW : 1980 R equested By: DO PARISI Order Number: [id number] R jazmin MD: Cedrick Salomon M.D. F.A.A.C Measurements Intervals A xis Rate: 93 P : 22 OK: 148 Q RS: 56 QRSD: 98 T : 43 QT: 371 QTc: 462 Interpretive Statements Sinus rhythm Low voltage, precordial leads RSR' in V1 or V2, right VCD or RVH Electronically Signed On 11-17-2019 4:20: 17 CDT by Polly Teran.A.A.C Transcribed By: [employer] SIGNED <electronically signed by CEDRICK SALOMON MD> 9 CEDRICK SALOMON MD November 30, 2019 YOAN ZARCO MD completed 4:17pm Patient: LEIGH CORONADO MR#: [id number] 69 : 1980 Order[address] DrKoby: LAYA HAWKINS MD Pt Status: [facility] ER Pt Location: ER Date/Time: 11/30/19 1547 Primary Care Physician: . NO PHYSICIAN Technologist(s): CHARLOTTE HERNÁNDEZ Procedure(s): [id number] RAD/CHEST 1 VIEW Signed EXAMINATION: XR CHEST [...] MD 11/30/2019 4:17 PM CDT Transcribed By: SONNY YATES SIGNED < electronically signed by YOAN ZARCO MD> 1617 18 YOAN ZARCO MD December 01, 2019 CEDRICK SALOMON MD complete d 7:02pm Patient: LEIGH CORONADO MR#: [id number] 69 : 1980 Pt Location: ER Date/Time: 11/30/19 1547 Primary Care Physician: . NO PHYSICIAN Signed [facility] Test Date: 2019-11-30 Pat Name: LEIGH Roth epartment: R oom: Gender: Female T echnician: [id number] : 1980 R equested By: Jamel HAWKINS Order Number: [id number] R jazmin MD: Polly Teran.A.A.C Measurements Intervals A xis Rate: 99 P : 13 OK: 154 Q RS: 4 QRSD: 98 T : 24 QT: 359 QTc: 461 Interpretive Statements Sinus rhythm Low voltage, precordial leads Electronically Signed On 12-01-2019 19:02 :23 CDT by Polly Teran.A.A.C Transcribed By: [employer] SIGNED <electronically signed by CEDRICK SALOMON MD> 01 01 CEDRICK SALOMON MD Health Concerns Health Concerns may be documented in an alternate section. Advance Directives Advance Directive Response Recorded Date/Time Advance Directives No June 26, 2015 2:50 pm Advance Directive on File Yes November 4:47pm Directive to Physicians/Living No June 2:50pm Will Health Care Proxy No June 26, 2015 2:50 pm Name of Surrogate/Decision BLANCA CORONADO November 6:16pm Maker Organ Donor No June 26, 2015 2:50 pm Medical Power of Wrister No Anabela 6th, 201 6 2:50pm Chief Complaint and Reason for Visit Chief Complaint Chest Pain Reason for Visit [id number] Encounters Encounter Location(s) Arrival/Admit Date Discharge/Depart Date Provider(s) Departed Terry December 02, December 03, 2019 ESTELA JACOME Emergency Room [facility] 2019 4:47pm 9:30pm Ctr Departed Terry November 29November 30, 2019 LAYA HAWKINS MD Emergency Room [facility] 2019 3:38pm 6:37pm Ctr Departed [place] November 15, 2019 November 15, 2019 TJ PARISI DO Emergency Room [facility] 2:20pm 5:20pm Ctr Discharged Terry November 05, 2019 November 07, 2019 MARCELL LOPEZ, Inpatient [facility] 5:08pm 4:02pm FARSHAD Elder MD Ctr Discharged [place] October 26, 2019 October 28, 2019 Glen GONZALEZ [facility] 5:20pm 6:30pm JAMIE VELASCO Ctr Departed Terry October 19, 2019 October 20, 2019 MAEVE Emergency Room [facility] 10:04pm 5:34am JACKSON Farfan MD Ctr Assessments No Assessments Information Available Functional Status No Functional Status information available Goals Goals may be documented in an alternate section. Immunizations No Immunization Information Available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
--- OUTSIDE RECORDS SUMMARY | 2020-03-01 14:27 | XMS REPORT | Summary of Care ---
:1980 Author Organization [facility] - [facility] Address [address] [place] [id number] Care Team Providers Name Role Phone Scarlett Thomas Primary Care Provider Reason for Visit Reason Comments Transition Of Care Encounter Details Date Type Department Care Team Description 12/21/2019 Transition of Care [facility] Davis Torres Transition Of Care [facility]- [address] [place] [id number] Allergies Active Allergy Reactions Severity Noted Date Comments Losartan Dizziness 12/04/2019 Metformin Diarrhea 12/05/2019 documented as of this encounter (statuses as of 12/21/2019) Medications Medication Sig Dispensed Refills Start Date End Date Status traMADol 100 mg Take 50 mg by 0 Active capsule mouth 3 (three) times daily. potassium chloride 10 Take 2 tablets 14 tablet 0 10/23/2019 Active mEq CR by mouth daily. tabletIndications: Saddle embolus of pulmonary artery without acute cor pulmonale, unspecified chronicity amLODIPine 5 mg Take 1.5 tablets 21 tablet 0 12/21/20192019 Active tabletIndications: by mouth daily Chest pain, for 14 days. unspecified type aspirin 81 mg chewable Take 1 tablet by 14 tablet 0 12/21/2019 01/04/2020 Active tabletIndications: mouth daily for Chest pain, 14 days. unspecified type escitalopram oxalate Take 1 tablet by 14 tablet 0 12/20/2019 1 Active 20 mg mouth daily for tabletIndications: 14 days. Saddle embolus of pulmonary artery without acute cor pulmonale, unspecified chronicity furosemide 40 mg Take 1 tablet by 14 tablet 0 12/20/201901/02 Active tabletIndications: mouth daily for Saddle embolus of 14 days. pulmonary artery without acute cor pulmonale, unspecified chronicity metoprolol tartrate 25 Take 1.5 tablets 42 tablet 0 12/20/2019 01/03/2020 Active mg tabletIndications: by mouth 2 (two) Chest pain, times daily for unspecified type 14 days. QUEtiapine 100 mg Take 3 tablets 42 tablet 0 12/20/20192019 Active tabletIndications: by mouth at Chest pain, bedtime for 14 unspecified type days. QUEtiapine 50 mg Take 1 tablet by 14 tablet 0 12/20/201901/02 Active tabletIndications: mouth every Chest pain, morning for 14 unspecified type days. atorvastatin 80 mg Take 1 tablet by 14 tablet 0 12/20/2019 Active tabletIndications: mouth at bedtime Chest pain, for 14 days. unspecified type dapagliflozin Take 1 tablet by 14 tablet 0 12/20/2019 01/03/20 20 Active (FARXIGA) 10 mg mouth daily for tabletIndications: 14 days. Chest pain, unspecified type montelukast 10 mg Take 1 tablet by 14 tablet 0 12/20/201912/20 Active tabletIndications: mouth daily for Chest pain, 14 days. unspecified type atomoxetine 80 mg Take 1 capsule 14 capsule 0 12/20/201901/02 Active capsuleIndications: by mouth daily Chest pain, for 14 days. unspecified type vancomycin 50 mg/mL Take 2.5 mL by 150 mL 0 12/20/201910/2019 Active oral mouth 4 (four) solutionIndications: times daily for Chest pain, 8 days. unspecified type apixaban 5 mg Take 1 tablet by 60 tablet 2 12/20/2019 03/19/20 20 Active tabletIndications: mouth 2 (two) deep vein thrombosis times daily for prevention, prevention 90 days. of pulmonary Indications: thromboembolism deep vein recurrence thrombosis prevention, treatment to prevent recurrence of a blood clot in the lungs azilsartan Take 1 tablet by 30 tablet 1 12/20/2019 A ctive med-chlorthalidone mouth daily. 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 She was discharged on 12/20/19 with discharge disposition of HR- Routine Discharge. Admitting Physician: Gianluca Gould Discharge Diagnosis: Chest pain Pt. Verbalized understanding discharge instructions. Voiced understanding that she needs assistance for medical care and finacial. Working with Patient matters, knows application needs to be done MADDIE.Sent patient email as requested of Zachariah David [employer] Information. Pt. Agreed to participate in [facility]. Linked Episodes Type: Episode: Status: Noted: Resolved: Last update: Updated by: TRANSITION OF CARE tcm Active 12/20/2019 12/21/2019 8:46 AM Marilyn Torres Comments:12/20/2019 TCM [id number] outreach documentation: Discharge Assessment Chart Assessed: 12/21/19 TCM Outreach Completed: 12/21/19 Do you have a few minutes to speak with me about how you are doing at home?: Yes Discharge Instructions Do you understand your at-home instructions?: Yes Medications Have you filled your prescriptions and do you have them in your home? : Yes Do you know how to take your medications?: Yes Can you provide me with the names or descriptions of any rjxk-tqm-lrjltwd or supplements you are currently taking?: Yes Supplies Did you receive applicable home medical supplies/equipment?: No(needs Blood pressure machine.) Supplies intervention?: Care coordination(CHP) Do you understand how to use the medical supplies/equipment?: No Medical supplies/equipment instruction interventions:: Provided education Follow Up Appointment Has a follow up appointment been scheduled?: No May I assist with scheduling this appointment?: Unable to schedule-referred to HFU Team Do you have any questions about your follow up appointments?: No Are you able to get to your appointment? Who will be taking you?: Yes(no transportation an issue. Will inform [facility].) Home Health Assistance Has the home health nurse contacted you since you've been home?: N/A Survey - Recognition Is there anything you would like to share about your recent hospitalization, or anyone you would like to recognize?: Yes Survey tasks completed:: (Nursing care great.) Do you have any suggestions for improvement?: No Do you have any other questions or concerns at this time?: Yes Future Appointments: documented in this encounter Plan of Treatment Health Maintenance Due Date Last Done Comments PNEUMOCOCCAL 0-64 YEARS COMBINED 02/23/1986 SERIES (1 of 3 - PCV13) EYE EXAM 02/23/1990 URINE MICROALBUMIN 02/23/1990 Depression Screening 1992 FOOT EXAM 02/23/1998 DTaP,Tdap,and Td Vaccines (1 - 02/23/1999 Tdap) PAP SMEAR 08/28/2007 08/27/2004, 12/13/2003 INFLUENZA VACCINE (#1) 2019 HgA1C 06/15/2020 12/17/2019, 08/15/2019 LDL-C 08/14/2020 08/15/2019 CREATININE (SERUM) 12/19/2020 12/20/2019, 12/19/2019, 12/18/2019, Additional history exists documented as of this encounter Results Not on filedocumented in this encounter Additional Health Concerns Infection Onset Date Last Indicated Resolved Time Extended Contact- CDiff 12/06/2019 12/06/2019 documented as of this encounter Insurance Payer Benefit Plan / Subscriber ID Effective Phone Address T ype Group Dates MEDICAID MEDICAID SSI PENDING 2019-[address] [place] [address] documented as of this encounter
--- OUTSIDE RECORDS SUMMARY | 2020-03-01 14:27 | XMS REPORT | Summary of Care ---
:1980 Author Organization [facility] Address [address] [place] [id number] Care Team Providers Name Role Phone Scarlett Thomas Primary Care Provider Reason for Referral (Routine) Status Reason Specialty Diagnoses / Referred By Referred To Procedures Contact Contact Closed Family Medicine Diagnoses Chest pain, unspecified type José Miguel Ramsay Ambeaux, Louis I Procedures Discharge Follow-up: PCP DENTON THOMAS JR, I; 1 Week MD Peterson [address] [place] [phone] Phone: ([facility]) Status Reason Specialty Diagnoses / Referred By Referred To Procedures Contact Contact New Request Vascular Surgery Procedures José Miguel Ramsay BILATERAL VENOUS MD Mendez DUPLEX LOWER [address] [place] [address] MRI/CAT Scan (MADDIE) Status Reason Specialty Diagnoses / Referred By Referred To Procedures Contact Contact New Request Diagnostic Diagnoses Chest pain, unspecified type José Miguel Ramsay Radiology Procedures CT CHEST PULMONARY ANGIOGRAM MD Mendez [address] [place] [id number] Radiology Services (STAT) Status Reason Specialty Diagnoses / Referred By Referred To Procedures Contact Contact New Request Diagnostic Diagnoses Chest pain, unspecified type Kevin Barnard, Radiology Procedures XR CHEST 1 VW PEDIATRICS PHYSICIAN [address] [place] [phone] Reason for Visit Reason Comments Chest Pain Shortness of Breath Auth/Cert Status Reason Specialty Diagnoses / Referred By Referred To Procedures Contact Contact Emergency Medicine [facility] [address] [place] [address] Fax: Encounter Details Date Type Department Care Team Description 12/17/2019 - Hospital Encounter Medicine (KURTIS 10A) Kevin Barnard, CHRISTIAN [address] [place] [address] Chest pain 12/20/2019 712 [facility], José Miguel Simms MD [address] [place] [address] Dr. Burks [address] [place] [phone] [place] [phone] Gianulca Gould MD [address] [place] [address]. [place] [address] [phone] Allergies Active Allergy Reactions Severity Noted Date Comments Losartan Dizziness 12/04/2019 Metformin Diarrhea 12/05/2019 documented as of this encounter (statuses as of 12/20/2019) Medications Medication Sig Dispensed Refills Start End Date Status Date traMADol 100 mg Take 50 mg by 0 Active capsule mouth 3 (three) times daily. potassium chloride Take 2 tablets 14 tablet 0 Active 10 mEq CR by mouth 0 tabletIndications: daily. Saddle embolus of pulmonary artery without acute cor pulmonale, unspecified chronicity amLODIPine 5 mg Take 1.5 21 tablet 0 01/04/20 Acti ve tabletIndications: tablets by 0 20 Chest pain, mouth daily unspecified type for 14 days. aspirin 81 mg Take 1 tablet 14 tablet 0 01/04/20 Ac tive chewable by mouth daily 0 20 tabletIndications: for 14 days. Chest pain, unspecified type escitalopram Take 1 tablet 14 tablet 0 01/03/20 Act thomas oxalate 20 mg by mouth daily 0 20 tabletIndications: for 14 days. Saddle embolus of pulmonary artery without acute cor pulmonale, unspecified chronicity furosemide 40 mg Take 1 tablet 14 tablet 0 01/03/20 Active tabletIndications: by mouth daily 0 20 Saddle embolus of for 14 days. pulmonary artery without acute cor pulmonale, unspecified chronicity metoprolol tartrate Take 1.5 42 tablet 0 01/03/20 Active 25 mg tablets by 0 20 tabletIndications: mouth 2 (two) Chest pain, times daily unspecified type for 14 days. QUEtiapine 100 mg Take 3 tablets 42 tablet 0 0 Active tabletIndications: by mouth at 0 20 Chest pain, bedtime for 14 unspecified type days. QUEtiapine 50 mg Take 1 tablet 14 tablet 0 01/03/20 Active tabletIndications: by mouth every 0 20 Chest pain, morning for 14 unspecified type days. atorvastatin 80 mg Take 1 tablet 14 tablet 0 0 Active tabletIndications: by mouth at 0 20 Chest pain, bedtime for 14 unspecified type days. dapagliflozin Take 1 tablet 14 tablet 0 01/03/20 Ac tive (FARXIGA) 10 mg by mouth daily 0 20 tabletIndications: for 14 days. Chest pain, unspecified type montelukast 10 mg Take 1 tablet 14 tablet 0 01/03/20 Active tabletIndications: by mouth daily 0 20 Chest pain, for 14 days. unspecified type atomoxetine 80 mg Take 1 capsule 14 capsule 0 Active capsuleIndications: by mouth daily 0 20 Chest pain, for 14 days. unspecified type vancomycin 50 mg/mL Take 2.5 mL by 150 mL 0 12/27 Active oral mouth 4 (four) 0 20 solutionIndications times daily : Chest pain, for 8 days. unspecified type apixaban 5 mg Take 1 tablet 60 tablet 2 03/19/20 Ac tive tabletIndications: by mouth 2 0 20 deep vein (two) times thrombosis daily for 90 prevention, days. prevention of Indications: pulmonary deep vein thromboembolism thrombosis recurrence prevention, treatment to prevent recurrence of a blood clot in the lungs azilsartan Take 1 tablet 30 tablet 1 Activ e med-chlorthalidone by mouth 0 (EDARBYCLOR) daily. 40-12.5 mg TabIndications: Chest pain, unspecified type furosemide 40 mg Take 1 tablet 14 tablet 0 12/20/19 Discontinued tabletIndications: by mouth 0 20 ( Reorder) Saddle embolus of daily. pulmonary artery without acute cor pulmonale, unspecified chronicity escitalopram Take 1 tablet 14 tablet 0 12/20/19 Dis continued oxalate 20 mg by mouth 0 20 (Reord er) tabletIndications: daily. Saddle embolus of pulmonary artery without acute cor pulmonale, unspecified chronicity amLODIPine 10 mg Take 1 tablet 30 tablet 0 12/20/19 Discontinued tablet by mouth 0 20 daily. apixaban 5 mg Take 1 tablet 60 tablet 0 12/20/19 Di scontinued tabletIndications: by mouth 2 0 20 pulmonary (two) times thromboembolism daily. Indications: a clot in the lung aspirin 81 mg Take 1 tablet 0 12/20/19 Di scontinued chewable by mouth 0 20 tabletIndications: daily. Chest pain in adult atomoxetine 80 mg Take 1 capsule 0 2 0 Discontinued capsule by mouth 0 20 (Reorder) daily. atorvastatin 80 mg Take 1 tablet 0 12/19/2 0 Discontinued tablet by mouth at 0 20 (Reorder ) bedtime. chlorthalidone 25 Take 1 tablet 0 12/17/19 Discontinued mg tablet by mouth 0 20 (Patient daily. Reported) metoprolol tartrate Take 1 tablet 0 Discontinued 25 mg tablet by mouth 2 0 20 (two) times daily. montelukast 10 mg Take 1 tablet 0 12/20/19 Discontinued tablet by mouth 0 20 (Reorder) daily. QUEtiapine 300 mg Take 1 tablet 0 12/20/19 Discontinued tablet by mouth at 0 20 (Reorder ) bedtime. QUEtiapine 50 mg Take 1 tablet 0 12/20/19 Discontinued tablet by mouth every 0 20 (Reor joaquín) morning. metroNIDAZOLE 500 Take 1 tablet 42 tablet 0 12/20/19 Discontinued mg by mouth every 0 20 tabletIndications: 8 (eight) C. difficile hours for 14 colitis days. azilsartan Take by mouth 0 12/20/19 Disc ontinued med-chlorthalidone daily. 20 (EDARBYCLOR) 40-12.5 mg Tab dapagliflozin Take by mouth 0 12/20/19 D iscontinued (FARXIGA) 10 mg daily. 20 (Reo rder) tablet valsartan 40 mg Take 1 tablet 14 tablet 0 12/20/19 Discontinued tabletIndications: by mouth daily 0 20 Chest pain, for 14 days. unspecified type documented as of this encounter [...] Cigarettes 0.5 6 Smokeless Tobacco: Never Used Tobacco Cessation: Ready to Quit: No; Co unseling Given: No Comments: Smokes About 3 to 4 cigarettes [...] of this encounter Last Filed Vital Signs Vital Sign Reading Time Taken Comments Blood Pressure 95/46 12/20/2019 12:59 PM CDT Pulse 72 12/20/2019 12:59 PM CDT Temperature 36.4 C (97.5 F) 12/20/2019 12:59 PM CDT Respiratory Rate 18 12/20/2019 12:59 PM CDT Oxygen Saturation 97% 12/20/2019 12:59 PM CDT Inhaled Oxygen Concentration - - Weight 227.5 kg (501 lb 8 oz) 12/19/2019 4:35 AM CDT b edscale Height - - Body Mass Index 68.02 12/05/2019 2:00 AM CDT documented in this encounter Discharge Instructions AttachmentsThe following attachments cannot be sent through Care Everywhere. Vancomycin oral solution (Cymro)Atrial Fibrillation, Understanding (Cymro) Atrial Fibrillation, Discharge Instructions for (Cymro)documented in this encounter Progress Notes Haryr Carmichael RN - 12/20/2019 5:03 PM CDT Care Management Discharge Disposition Note (DCDN) 5-2-1 Interventions: (P) Intensive medication reconciliation/management;Teach back;Clear discharge plan;Follow-up appointments 5-2-1 Providers: (P) Physician;Bench Scientist/It Coordinator 5-2-1 Patient Capacity Improvements: (P) Avoidance of adverse events/readmission Discharge Plan for ongoing care and services: Is this a new referral: Patient Choice completed for referred services: DME location: Other DME location: Durable Medical Equipment: Home Health location: Discharge location(s): Patient choice completed for referred services: Discussed with patient/patients family involved in decision making: Patient or family caregiver understands, and agrees with discharge plan. Community resources/referrals made or provided to patient: (P) Yes Resources/Referrals: (P) [facility] Resources Fact Sheets;[facility] Ind[facility] Transportation: (P) Private Vehicle Mental Status: (P) Alert & Oriented to Person,Place & Time Living Arrangement: (P) Home Other living arrangement: Address of living arrangement: (P) [address] [place], [place] [address] [place], [place] Funding Resources: (P) Self Pay Nursing informed of discharge plan: (P) Yes Name of RN informed: (Howard) Mario Estimated discharge date: Time: Additional Information: CM/SW Name & Contact number: Harry BARTONN not for patient use [email or web address] The following information has been provided to the facility noted above: reason for the patient discharge or transfer; patients physical and psychosocial status; summary of care, treatment, servicesprovided to patient; and the patient progress toward goals. Harry Duhram RN - 12/20/2019 5:01 PM CDTCare Management Note 12/20/2019 5:01 PM Cm delivered cm medication request meds to the bedside. Harry BARTONN Office not for patient use [email or web address] Harry Durham RN - 12/19/2019 10:39 AM CDT 12/19/19 1038 8 Ps Psychological - Depression screen positive or h/o depression diagnosis, anxiety disorders and substance abuse? 1 (depression and anxiety) Primary Diagnosis - cancer, stroke, diabetes, COPD, heart failure, or liver failure? 0 Polypharmacy - 10 or more routine meds? 1 Poor Health Literacy - Inability to do Teach Back? 0 Patient Support - Absence of caregiver to assist with discharge and home care/poor physical condition? 0 Prior Hospitalization - Non-elective within the last 6 months? 1 Palliative Care - Does this patient have an advanced or progressive serious illness? 0 Harry Durham RN - 12/19/2019 10:38 AM CDTCare Management Social Functional Assessment Patient Name: Shasta Coronado Age: [age] year old Sex: female Patient's Previous Admission Date at [facility]: 10/20/2019 Current diagnosis and co-morbidities: chest pain Readmission Questions: Was patient discharged from any acute care hospital within the last 30 days: (P) Yes Were all questions regarding previous illness/diagnosis answered prior to discharge: (P) Yes Did you have any difficulties with your discharge instructions: (P) No Were you able to go to your follow-up discharge appointments: (P) Yes Any difficulties after discharge with medications: (P) No Any difficulties after discharge with transportation: (P) No Any difficulties after discharge with physical conditions, support, or other limitations?: (P) No Did patient refuse services that were recommended on the previous admission: (P) No Was patient non-compliant with the previously recommended treatment: (P) No If admitted from the ED did you call your primary MD or place a sick call/request with your provider?: (P) No Social Functional Assessment: Primary language spoken/preferred: (P) Cymro Mental Status: (P) Alert & Oriented to Person,Place & Time Information given by: (P) Self Patient's support system: (P) Other Name and number of support system: (P) mark coronado [phone] Primary Shipping And Receiving Assistant: (P) Self MPOA: (P) Same as support system Living Arrangement: (P) Apartment: Upstairs Address of living arrangement : (P) [address] [place] [address] Persons living in home: (P) Self;Other Names & numbers of persons living in home: (P) mohini coronado no phone Barriers to returning home: (P) None Baseline functional status- ambulation: (P) Independent Functional status-baseline personal care: (P) Independent Baseline functional status- driving: (P) Independent Baseline functional status- grocery shopping: (P) Independent Functional status-baseline housekeeping: (P) Independent Functional status-baseline meal prep: (P) Independent Current functional status same as prior: (P) Yes Do you have a PCP?: (P) Yes Name of PCP: (P) denton th[facility]: (P) No Provider Services: (P) No DME Company: (P) No Equipment: (P) None;Other Other equipment: (P) glucometer Hemodialysis: (P) No Community resources utilized: (P) Food Walker Funding Resources: (P) Self Pay Prescription coverage plan: (P) Self Pay Pharmacy where meds are filled: (P) Other Other pharmacy: (P) [place] Anticipated services prior to disharge: (P) Continue Medical Eval;Lab Values Expected mode of discharge transportation: (P) Same as support system Additional info required for discharge planning: (P) Pending medical evaluation Recommended discharge plan: (P) Home SFA Complete: Social Functional Assessment complete: (P) Yes Alcohol Use Screening (AUDIT-C) How often do you have a drink containing alcohol?: (P) Never SCORE: (P) 0 Did patient elect to have resources provided: (P) No Any issues or concerns with obtaining/affording your medications at home: no. Are you or your support system able to tack picker medications at discharge: yes. Describe: family. Role of Care Management explained. Harry Carmichael RN BSN not for patient use [email or web address] Maciej Franco DO - 12/19/2019 8:51 AM CDT [facility] Progress Note Date of Service: 12/19/2019 08:51 Chief Complaint: chest pain 24-HOUR EVENTS: NAEO SUBJECTIVE: Patient is feeling a little bit better today but is still experiencing chest pain, abdominal pain, and watery diarrhea x4. She also endorses some shortness of breath and nausea but denies vomiting. Today she says she is experiencing some kidney pain rated 5-6/10. She has experienced this intermittently but today she woke up with it being more painful. She denies dysuria. PHYSICAL EXAM: Vitals: 12/18/19 2320 12/18/19 2352 12/19/19 0435 12/19/19 0716 BP: 103/47 128/69 136/73 Pulse: 73 78 75 84 Resp: 18 18 18 Temp: 36.5 C (97.7 F) 36.4 C (97.5 F) 36.4 C (97.6 F) TempSrc: Oral Oral Oral SpO2: 97% 95% 95% 95% Weight: (!) 227.5 kg (501 lb 8 oz) Intake/Output Summary (Last 24 hours) at 12/19/2019 0851 Last data filed at 12/19/2019 0000 Gross per 24 hour Intake 340 ml Output Net 340 ml Physical Exam General: alert and oriented x4 Cardio: diminished heart sounds due to body habitus Lungs: diminished breath sounds due to body habitus Abdomen: soft, tender to palpation, more severe in upper half of abdomen, normoactive bowel sounds Extremities: tenderness to palpation on lateral ankle bilaterally LABS/IMAGING - reviewed, pertinent results as below: CT PE: suboptimal study due to body habitus - no large occlusive filling defect in main, lobar, or proximal segment of pulmonary artery - questionable filling defect in left lower lobe posterior branch, possible it could be an artifact - 1.5cm right thyroid lobe nodule, follow-up with nonemergent thyroid US No evidence of DVT on bilateral venous duplex of the lower extremity ASSESSMENT/PLAN Shasta Coronado is a 39 year old female admitted to the hospital with: Chest pain, likely referred GI pain H/O PE (on chronic AC) Paroxysmal A-fib([id number] 6) HTN Nausea/vomiting Patient is still experiencing chest pain in the mid thorax that radiates to upper left side and downto left. No abnormalities on telemetry overnight. LE duplex showed no evidence of DVT. CT angiogram was a suboptimal study but did not report any conclusive filling defects. CP is most likely referred pain from GI tract due to C diff infection. -prn phenergan Q4h - administer viscous lidocaine and apply lidocaine patch to help rule in/out GI etiology for chest pain - C/w Eliquis 5mg BID - C/w asa, lipitor, lopressor 25mg BID, amlodipine 10mg daily, lasix 40mg daily - Start valsartan 40mg daily in place of home Edarbyclor (azilsartan- chlorthalidone combo) while inpatient and hold home chlorthalidone C. Diff Infection, first occurrence Patient is experiencing watery diarrhea x4 which is an improvement from yesterday. - continue with PO vancomycin (day 2) - contact precautions T2DM A1C 6.4, on dapagliflozin at home. -SSI CVA tenderness Kidney pain Hx of kidney stones Patient woke up with 5-6/10 kidney pain. She says she experiences this intermittently but it was worse today. CVA tenderness present bilaterally but more severe on the right. Denies dysuria. It is likely that this patient could have kidney stones. - follow-up on outpatient basis Depression vs other unspecified mood disorder -Continue home Quetiapine and Lexapro PainImprovedTylenol Prophylaxis: DVT-eliquis Stress Ulcer:not indicated Code Status:addressed:Full Bowel regimen: none Frida Pan, MS3 END OF DAILY PROGRESS NOTE HOSPITAL COURSE Ms. Coronado is a 39 year-old F with PMHHTN, DMII, paroxysmal A fib (2013, CHADSVASC 6), PE x2 (2017, 09/2019, on chronic AC), carcinoid tumor of appendix (s/p resection 2003), pituitary tumor (s/p resection 08/2018, not on HRT), morbid obesity (s/p gastric banding), and recent C diff infection who presents for CP and abdominal pain. Was referred from [facility] for CT angiogram PE protocol. CT PE was orderedand course of PO vancomycin was initiated. Bilateral lower extremity duplex was also ordered. I personally examined the patient on 12/18 and have verified the MS3 medical student documentation and/or findings, including the history, physical exam, and medical decision making. Additionally, I have personally performed or re- performed the physical exam and medical decision making activities of this patient's evaluation and management service. Maciej Melendrez DO Department of Internal Medicine PGY-1, [facility] Team Doctor's Number: [phone] Pager: [phone] Associated attestation - José Miguel Ramsay MD - 12/19/2019 5:00 PM CDTI personally examined the patient and agree with Dr. Melendrez's note as written, including any changes or additions that the resident may have made to medical student's note. I actively participated in the decision making process. Please see the resident's note for additional details. José Miguel Ramsay MD 12/19/2019 17:00 Electric Motor Control Assembler Department of Internal Medicine Ramandeep Martinez MD - 12/18/2019 7:43 AM CDT [facility] Progress Note Date of Service: 12/18/2019 07:43 Chief Complaint: chest pain 24-HOUR EVENTS: NAEO SUBJECTIVE: Patient feels "not good" but not worse than yesterday. She denies SOB but is still experiencing chest pain in mid-thoracic region that radiates up towards the left and down towards left abdomen. She endorses generalized abdominal pain, diarrhea, and nausea but denies vomiting and hematochezia. Last BMwas this morning and it is still watery. She is not having any dysuria or increased frequency. She is drinking and eating without any issues. PHYSICAL EXAM: Vitals: 12/17/19 1826 12/17/19 2039 12/18/19 0047 12/18/19 0342 BP: (!) 141/83 (!) 152/86 (!) 156/94 Pulse: 81 93 84 Resp: Temp: 36.5 C (97.7 F) 36.7 C (98.1 F) 36.8 C (98.3 F) TempSrc: Oral Oral Oral SpO2: 99% 98% 99% 98% Weight: No intake or output data in the 24 hours ending 12/18/19 0743 Physical Exam General: drowsy but easily arousable Cardio: heart sounds distant due to body habitus Lungs: lung sounds distant due to body habitus Abdomen: soft, obese, tender to light palpation in all quadrants, normoactive bowel sounds LABS/IMAGING - reviewed, pertinent results as below: WBC: 7.17 (5.64) H.6 (14.1) Hct: 38.2 (42) Troponin I: 0.023 (0.003) NT BNP: 156 DDIMER: 0.43 X-ray: Lungs are clear, heart size and mediastinal silhouette are normal. No pleural effusion or pneumothorax is seen. ASSESSMENT/PLAN Shasta Coronado is a 39 year old female admitted to the hospital with: Chest pain, likely referred GI pain H/O PE (on chronic AC) Paroxysmal A-fib ([id number] 6) HTN Patient is still experiencing chest pain in the mid thorax that radiates to upper left side and downto left. No abnormalities on telemetry overnight, no EKG changes, and low troponin levels decrease the likelihood of ACS. MARII score is 3, however, patient had normal LHC in 07/2019. CP is most likely referred pain from GI tract due to C diff infection. Currently, she is not having any SOB, but she wasin AFib with RVR at time of admission at [facility], Wells score was 3, and her D dimer is mildly elevated.Although she reports compliance with Eliquis, will order CT angio to rule out PE. Was unable to do this at [facility] given her body habitus, so she was transferred to [facility] location. - CT angio PE protocol - LE duplex in the meantime - C/w Eliquis 5mg BID - C/w asa, lipitor, lopressor 25mg BID, amlodipine 10mg daily, lasix 40mg daily - Start valsartan 40mg daily in place of home Edarbyclor (azilsartan- chlorthalidone combo) while inpatient and hold home chlorthalidone C. Diff Infection, first occurrence Patient is having generalized abdominal pain and watery diarrhea (5-6 episodes/day) even after almost completing outpatient regimen of flagyl. Discontinued flagyl and will start new course of PO vancomycin. - continue with PO vancomycin - contact precautions T2DM A1C 6.4, on dapagliflozin at home. -SSI Depression vs other unspecified mood disorder -Continue home Quetiapine and Lexapro Pain ImprovedTylenol Prophylaxis: DVT- eliquis Stress Ulcer: not indicated Code Status: addressed: Full Bowel regimen: none Frida Pan, MS3 I personally examined the patient on 12/18/2019 and have verified the MS3 medical student documentation and/or findings, including the history, physical exam, and medical decision making. Additionally, I have personally performed or re- performed the physical exam and medical decision making activities of this patient's evaluation and management service. Ramandeep Martinez MD Internal Medicine, PGY2 [facility] Pager#: [phone] END OF DAILY PROGRESS NOTE HOSPITAL COURSE Ms. Coronado is a 39 year-old F with PMH HTN, DMII, paroxysmal A fib (2013, CHADSVASC 6), PE x2 (2018,09/2019, on chronic AC), carcinoid tumor of appendix (s/p resection 2003), pituitary tumor (s/p resection 08/2018, not on HRT), morbid obesity (s/p gastric banding), and recent C diff infection who presents for CP and abdominal pain. Was referred from [facility] for CT angiogram PE protocol. CT PE was ordered and course of PO vancomycin was initiated. CURRENT MEDICATIONS - reviewed. Current Facility-Administered Medications Medication Dose Route Frequency Last Rate Last Dose furosemide (LASIX) tablet 40 mg 40 mg Oral DAILY magnesium sulfate in water 4 gram/50 mL (8 %) 4,000 mg piggyback 4,000 mg IV Infusion ONCE traMADoL (ULTRAM) tablet 100 mg 100 mg Oral Q6HPRN 100 mg at 12/18/19 0219 valsartan (DIOVAN) tablet 40 mg 40 mg Oral DAILY acetaminophen (TYLENOL) tablet 650 mg 650 mg Oral Q6HPRN 650 mg at 12/17/192120 acetaminophen-codeine (TYLENOL #3) 300-30 mg tablet 1 tablet 1 tablet Oral Q6HPRN 1 tablet at12/18/19 0043 amLODIPine (NORVASC) tablet 10 mg 10 mg Oral DAILY apixaban (ELIQUIS) tablet 5 mg 5 mg Oral BID aspirin chewable tablet 81 mg 81 mg Oral DAILY atorvastatin (LIPITOR) tablet 80 mg 80 mg Oral QHS 80 mg at 12/17/192120 dextrose 50 % in water (D50W) injection 25 mL 25 mL Slow IV Push PRN escitalopram oxalate (LEXAPRO) tablet 20 mg 20 mg Oral DAILY glucagon (GLUCAGEN DIAGNOSTIC KIT) injection 1 mg 1 mg Intramuscular PRN metoprolol tartrate (LOPRESSOR) tablet 25 mg 25 mg Oral BID 25 mg at 12/18/19 003 montelukast (SINGULAIR) tablet 10 mg 10 mg Oral DAILY QUEtiapine (SEROQUEL) tablet 300 mg 300 mg Oral QHS 300 mg at 12/17/192120 QUEtiapine (SEROQUEL) tablet 50 mg 50 mg Oral QAM Sliding Scale Insulin - Lispro (HumaLOG) + Fsbg Testing Subcutaneous TID MEALS+HS vancomycin (FIRVANQ) 50 mg/mL oral solution 125 mg 125 mg Oral QID 125 mg at 12/18/19 0030 Associated attestation - José Miguel Ramsay MD - 12/18/2019 2:00 PM CDTI personally examined the patient and agree with Dr. Martinez's note as written, including any changes or additions that the resident may have made to medical student's note. I actively participated in the decision making process. Please see the resident's note for additional details. José Miguel Ramsay MD 12/18/2019 14:00 [employer] Department of Internal Medicine documented in this encounter H&P Notes Dave Walker MD - 12/17/2019 8:30 PM CDT [facility] Ad[facility] H&P PCP: Denton Thomas Jr Date of Service: 12/17/2019 CHIEF COMPLAINT: chest and abdominal pain HISTORY OF PRESENT ILLNESS Shasta Coronado is a 39 year old female with a PMH of HTN, HFpEF, T2DM, Paroxysmal A-fib (diagnosed 2013), PE (on chronic Eliquis, dx 11/2017 then again 09/2019, resolution on recent CT), Carcinoid tumor of appendix (s/p resection 2003), Pituitary tumor (s/p resection 08/2018, not on HRT) and recent C. Diff infection who presents as a transfer from [facility] for chest pain and abdominal pains. The patient reports that she has been having intermittent abdominal pains, cramping, and diarrhea since her diagnosis of C. Diff two weeks prior. She reports taking Flagyl as prescribed and only had three more days to complete two weeks. Her bowel movements are watery and occur six times per day. Additionally, the patient reports that yesterday around 10 am she started to have chest pain as soon as she woke up. It was located in the center of her chest with some radiation upward towards her left jaw. The pains would wax and wane with movement and exertion and rated up to 8/10 at it's worst. Lying on her side would make the pain better. There were no other associated symptoms. At time of interview,the most pressing issue is chest pain which continues to be presented, rated about 6/10 in intensity. In [facility], patient was afebrile and in A-fib with RVR rate 130s. She was given 15mg diltiazem with improvement of HR to 90s. She was also given morphine for pain. Transferred to for further evaluation and possible CT PE. Past medical history: has a past medical history of CHF (congestive heart failure), Cocaine abuse,Depression, Diabetes mellitus, HTN (hypertension), Hypertension, PE (pulmonary thromboembolism), Pituitary tumor, and Suicidal ideation. Past surgical history: has a past surgical history that includes appendectomy; global eswl kidney;laparoscopic adjustable gastric banding; and section. Social history: reports that she has been smoking cigarettes. She has a 3.00 pack-year smoking history. She has never used smokeless tobacco. She reports current drug use. Drug: Marijuana. She reports that she does not drink alcohol. Family history: family history includes Coronary Heart Disease in her mother; Diabetes in her fatherand mother; Hypertension in her father and mother. Allergies: Allergies Allergen Reactions Losartan Dizziness Metformin Diarrhea MEDICATIONS Prior to Admission medications Medication Sig Start Date End Date Taking? Authorizing Provider amLODIPine 10 mg tablet Take 1 tablet by mouth daily. 12/06/19 Farooq Avilez MD apixaban 5 mg tablet Take 1 tablet by mouth 2 (two) times daily. Indications: a clot in the lung 12/06/19 Farooq Avilez MD aspirin 81 mg chewable tablet Take 1 tablet by mouth daily. 12/06/19 Farooq Avilez MD atomoxetine 80 mg capsule Take 1 capsule by mouth daily. 12/06/19 Farooq Avilez MD atorvastatin 80 mg tablet Take 1 tablet by mouth at bedtime. 12/06/19 Farooq Avilez MD chlorthalidone 25 mg tablet Take 1 tablet by mouth daily. 12/06/19 Farooq Avilez MD metoprolol tartrate 25 mg tablet Take 1 tablet by mouth 2 (two) times daily. 12/06/19 Farooq Avilez MD metroNIDAZOLE 500 mg tablet Take 1 tablet by mouth every 8 (eight) hours for 14 days. 12/06/19 12/20/19 Farooq Avilez MD montelukast 10 mg tablet Take 1 tablet by mouth daily. 12/06/19 Farooq Avilez MD QUEtiapine 300 mg tablet Take 1 tablet by mouth at bedtime. 12/06/19 Farooq Avilez MD QUEtiapine 50 mg tablet Take 1 tablet by mouth every morning. 12/06/19 Farooq Avilez MD escitalopram oxalate 20 mg tablet Take 1 tablet by mouth daily. 10/23/19 Danny Luu MD furosemide 40 mg tablet Take 1 tablet by mouth daily. 10/23/19 Danny Luu MD potassium chloride 10 mEq CR tablet Take 2 tablets by mouth daily. 10/23/19 Danny Luu MD traMADol 100 mg capsule Take 50 mg by mouth 3 (three) times daily. Doctor Unassigned, [place] REVIEW OF SYSTEMS (-)=Negative,(+)=Positive General: (+) weight gain, (-) fever, (-) chills, (-) fatigue, (-) malaise Skin: (-) rash, (-) lesion HEENT: (+) headache, (-) change in hearing, (-) change in vision, (-) nasal discharge Neck: (-) pain, (-) difficulty swallowing, (-) mass Heme: (-) bleeding disorder Resp: (+) dyspnea on exertion, (-) cough, (-) shortness of breath Cardio: (+) chest pain, (-) palpitations, (-) syncope GI: (+) abdominal pain, (+) diarrhea, (-) nausea, (-) vomiting, (-) melena : (+) dysuria, (-) hematuria, (-) increased frequency Endo: (+) diabetes, (-) polyuria, (-) polydipsia Neuro: (-) numbness, (-) tingling, (-) weakness Back: (-) pain, (-)spasms VLADIMIR: (+) joint pain, (-) muscle pain Psych: (+) depression PHYSICAL EXAMINATION Vitals: 12/17/19 1650 12/17/19 1730 12/17/19 1800 12/17/19 1826 BP: 122/87 111/74 (!) 124/98 Pulse: 79 95 88 Resp: 15 23 22 Temp: 37.1 C (98.7 F) TempSrc: Oral SpO2: 99% 99% 98% 99% Weight: General: alert, no distress, obese Neck: supple, no lymphadenopathy, no JVD Lungs: difficult to appreciate lung sounds at bases, clear air entry at upper lung martinez bilaterally, no wheezing, no labored breathing or respiratory distress Cardio: irregularly irregular, no rubs, gallops, murmurs Abdomen: soft; non-tender; non-distended; active bowel sounds Extremities: no clubbing, cyanosis, or edema Skin: no rashes Neuro: no focal deficits LABS - reviewed pertinent labs as below: INR 1.1 D-Dimer 0.043 Troponin: 0.003 NT-pro BNP: 156 CBC - wnl CMP - Cr 0.61, otherwise wnl UDS negative UA: Leukocyte esterase 25, WBC 2, few bacteria IMAGING - reviewed, pertinent results as below: CXR - no acute cardiopulmonary disease EKG: A-fib, rate 92 CHART REVIEW: pertinent information as below: Hospitalization -12/06/19: "Hospital Course: Patient is a 39 year-old female with PMH of morbid obesity, HTN, DM II, chronic diastolic CHF, paroxysmal A. Fib, tobacco abuse and recent PE on Eliquis therapy who presented to the ED with chest pain. In the ED, ECG and troponin were negative. CTA chest showed no evidence of new or residual PE. Telemetry and serial troponins were negative. She was found to have a UTI and was started on ceftriaxone. She subsequently developed diarrhea. C. Diff testing was positive and shewas started on PO metronidazole. She was transitioned to PO ciprofloxacin. She was medically clearedto discharge home and is to follow-up as below." ASSESSMENT/PLAN Shasta Coronado is a 39 year old female with PMH as listed above, admitted to the hospital with: Atypical Chest Pain Paroxysmal A-fib ([id number]) Chronic HFpEF H/O PE (on chronic AC) HTN T2DM Comment: The patient presented with features of atypical chest pain for 24 hours. Atypical features included location and positional quality of the pain. First troponin was negative and EKG without acute ischemic changes, but did show a-fib. Will follow one more troponin for ACS rule out. The patient had a LHC in 07/2019 which showed grossly normal coronaries. Additionally, the patient does have a history of saddle PE diagnosed in September 2019. However after recent hospitalization and repeat CT PE in Nov 2019, there was no evidence of new or residual PE. The patient has been taking Eliquis as prescribed. Her Wells score is 3 which puts her in moderate risk (given tachycardia and prior PE) and D-dimer is slightly above normal. The patient remains stable from a respiratory and hemodynamics standpointat this time without any need for extra oxygen. She is already on proper treatment for a PE. The etiology of the patient's chest pain may actually be related to GI disturbance. Will continue to monitorand have low threshold for repeat imaging. Plan: -Admit to [facility] -Vitals Q4h, O2 pp, Telemetry -Troponin x1 more -CBC, BMP in AM -Monitor hemodynamics -Consider CT PE if hypoxia or change in status -c/w Amlodipine 10 daily, Eliquis 5mg BID, ASA 81 daily, Atorvastatin 80 daily, Metoprolol 25 BID -Hold Farxiga -start SSI Abdominal Pains C. Diff Infection, first occurrence Comment: Patient's complaint of abdominal pains is likely related to C. Diff infection. She reports compliance but continued watery diarrhea up to six BM per day. No fevers or leukocytosis to suspect worsening infection. Repeat stool assay not warranted as patients can stay positive weeks after treatment. Given persistent symptoms, will switch to Vancomycin as may have slightly better efficacy. Plan: -trial of GI cocktail -contact precautions -hold flagyl (12/04-present) -start PO vancomycin 125 QID Depression Unspecified Mood Disorder Comment: Stable. -Continue home medications Pain ImprovedTylenol Prophylaxis: DVT- eliquis Stress Ulcer: not indicated Code Status: addressed: Full Bowel regimen: none Verónica Walker MD Internal Medicine PGY-2 [facility] Team Pager: [phone] Associated attestation - Gianluca Guold MD - 12/17/2019 10:11 PM CDTI personally examined the patient on 12/17/[address] Walker's resident note as written.I actively participated in the decision-making process. Please see the resident's note for additional details. Gianluca Gould MD Division of Internal [employer] Programmer[employer] Control Assembler documented in this encounter Nursing Notes Abdile Black RN - 12/17/2019 8:39 PM CDTPatient arrived to unit via stretcher from [facility]. AAO4. No distress noted. No family at bedside. POC discussed with patient. Call light in reach. Bed in low position. documented in this encounter ED Notes Karen Locke RN - 12/17/2019 3:27 PM CDTPatient reports midsternal chest pain, generalized abdomen pain, nausea, and shortness of breath starting yesterday morning Patient was given 324 mg of aspirin by EMS HX: A-fib, diagnostic cardiac cath in July of 2019, CHF, HTN, DM, lap band surgery 2010, pituitary gland tumor removed August 2018 evin Marrero FNP - 12/17/2019 3:23 PM CDT [facility] Emergency Department Note Patient Name: Shasta Coronado Date of : 1980 39 year old female Treatment Room: [facility] Primary Care Physician: Denton Thomas Jr Patient Escorted by: Self [9] Mode of Arrival: EMS - Central [45] EMS Treatment Prior to ED Arrival: Travel and Exposure Screening: Symptoms Does patient have any of these symptoms?: (not recorded) Exposure Screening Has patient had contact with someone with a communicable disease in the last month?: (not recorded) Diseases exposed to:: (not recorded) Is Patient ?: (not recorded) Exposure Date: (not recorded) Chief Complaint: Chief Complaint Patient presents with Chest Pain Shortness of Breath History of Present Illness: Patient with hx of CHF, PE, A-fib, CHF arrives to ER complaining of CP x 2 days. Substernal radiating under left breast. Patient reports pain is worse in certain positions and she has trouble lying down. Patient present to ER in a- fib. EMS unable to establish IV. History provided by: Patient educational interpreter used: No Chest Pain Pain location: Substernal area and L chest Pain quality: sharp Pain radiates to: Does not radiate Pain severity: Severe Onset quality: Sudden Duration: 2 days Timing: Constant Progression: Worsening Chronicity: Recurrent Context: at rest Relieved by: Nothing Worsened by: Certain positions Ineffective treatments: None tried Associated symptoms: abdominal pain and shortness of breath Risk factors: diabetes mellitus, hypertension, obesity and prior DVT/PE Shortness of Breath Associated symptoms: abdominal pain and chest pain Past Medical History/Immunizations: Past Medical History: Diagnosis Date CHF (congestive heart failure) Cocaine abuse Depression Diabetes mellitus HTN (hypertension) Hypertension PE (pulmonary thromboembolism) Pituitary tumor Suicidal ideation Tetanus received in last 5 years: Yes Childhood immunizations: Up-to-date Allergies: Allergies Allergen Reactions Losartan Dizziness Metformin Diarrhea Past Social History: Tobacco Use Current Every Day Smoker; Smoked an average of 0.5 packs/day for 6 years; Smoked: Cigarettes. Smokeless Tobacco: Never used smokeless tobacco. Tobacco Cessation: Ready to quit: No; Counseling given: No Comments: Smokes About 3 to 4 cigarettes a day. Alcohol Use Never. Frequency of alcohol consumption: Never Drug Use Yes; Marijuana. Past Surgical History: Past Surgical History: Procedure Laterality Date APPENDECTOMY SECTION GLOBAL ESWL KIDNEY LAPAROSCOPIC ADJUSTABLE GASTRIC BANDING Review of Systems: Review of Systems Constitutional: Negative. HENT: Negative. Eyes: Negative. Respiratory: Positive for shortness of breath. Cardiovascular: Positive for chest pain. Gastrointestinal: Positive for abdominal pain and diarrhea. Genitourinary: Negative. Musculoskeletal: Negative. Skin: Negative. Neurological: Negative. Psychiatric/Behavioral: Negative. Endocrine: Endocrine negative Physical Exam: ED Triage Vitals Weight 12/17/19 1531 (!) 231.3 kg (510 lb) Actual or estimated 12/17/19 1531 Estimated by patient/family report Height -- BP 12/17/19 1532 (!) 161/97 Pulse 12/17/19 1531 158 Resp 12/17/19 1531 23 Temp 12/17/19 1532 37.3 C (99.1 F) Temp source 12/17/19 1532 Oral SpO2 12/17/19 1531 96 % Measured on 12/17/19 1531 Room air Physical Exam Constitutional: General: She is not in acute distress. Appearance: She is well-developed. She is not toxic-appearing or diaphoretic. HENT: Head: Normocephalic. Mouth/Throat: Mouth: Mucous membranes are not dry. Pharynx: No oropharyngeal exudate. Eyes: Pupils: Pupils are equal, round, and reactive to light. Neck: Musculoskeletal: Normal range of motion. Cardiovascular: Rate and Rhythm: Tachycardia present. Rhythm irregularly irregular. Heart sounds: Normal heart sounds. Pulmonary: Effort: Pulmonary effort is normal. No tachypnea, accessory muscle usage or respiratory distress. Breath sounds: Decreased breath sounds present. No wheezing or rales. Abdominal: General: Bowel sounds are normal. There is no distension. Palpations: Abdomen is soft. Tenderness: There is no abdominal tenderness. Musculoskeletal: Normal range of motion. Skin: General: Skin is warm and dry. Neurological: Mental Status: She is alert and oriented to person, place, and time. Cranial Nerves: No cranial nerve deficit. Psychiatric: Speech: Speech normal. Behavior: Behavior normal. Thought Content: Thought content normal. Judgment: Judgment normal. Radiology: Hospital Encounter on 12/17/19 XR CHEST 1 VW Narrative CHEST ONE VIEW HISTORY: Chest pain TECHNIQUE: AP view of the chest is obtained. COMPARISON: 12/04/2019 FINDINGS: Lungs are clear. Heart size and mediastinal silhouette are normal. No pleural effusion or pneumothorax is seen. CONCLUSIONS: No acute cardiopulmonary disease. Lab Results (24h): Recent Results (from the past 24 hour(s)) CBC WITH DIFF Collection Time: 12/17/19 3:42 PM Result Value Ref Range WBC 5.64 4.30 - 11.10 10*3/L RBC 4.91 3.93 - 5.25 10*6/L HGB 14.1 11.6 - 15.0 g/dL HCT 42.0 35.7 - 45.2 % MCV 85.5 80.6 - 95.5 fL MCH 28.7 25.9 - 32.8 pg MCHC 33.6 31.6 - 35.1 g/dL RDW-SD 42.1 39.0 - 49.9 fL RDW-CV 13.5 12.0 - 15.5 % PLT 259 166 - 358 10*3/L MPV 9.7 9.5 - 12.9 fL NRBC/100 WBC 0.0 0.0 - 10.0 /100 WBCs NRBC x10^3 <0.01 10*3/L GRAN MAT (NEUT) % 55.8 % IMM GRAN % 0.40 % LYMPH % 34.0 % MONO % 5.0 % EOS % 4.1 % BASO % 0.7 % GRAN MAT x10^3(ANC) 3.15 1.88 - 7.09 10*3/uL IMM GRAN x10^3 <0.03 0.00 - 0.06 10*3/uL LYMPH x10^3 1.92 1.32 - 3.29 10*3/uL MONO x10^3 0.28 (L) 0.33 - 0.92 10*3/uL EOS x10^3 0.23 0.03 - 0.39 10*3/uL BASO x10^3 0.04 0.01 - 0.07 10*3/uL COMP. METABOLIC PANEL (15402) Collection Time: 12/17/19 3:42 PM Result Value Ref Range NA 135 135 - 145 mmol/L K 3.9 3.5 - 5.0 mmol/L CL 100 98 - 108 mmol/L CO2 TOTAL 23 23 - 31 mmol/L AGAP 12 2 - 16 BUN 11 7 - 23 mg/dL GLUCOSE 181 (H) 70 - 110 mg/dL CREATININE 0.61 0.50 - 1.04 mg/dL TOTAL BILI 0.5 0.1 - 1.1 mg/dL CALCIUM 9.7 8.6 - 10.6 mg/dL T PROTEIN 7.9 6.3 - 8.2 g/dL ALBUMIN 4.0 3.5 - 5.0 g/dL ALK PHOS 121 34 - 122 U/L ALTv 24 5 - 35 U/L AST(SGOT) 25 13 - 40 U/L eGFR Calculation (Non-) 109.2 mL/min/1.73m2 eGFR Calculation () 132.3 mL/min/1.73m2 MAGNESIUM Collection Time: 12/17/19 3:42 PM Result Value Ref Range MAGNESIUM 1.6 (L) 1.7 - 2.4 mg/dL N-TERMINAL PRO-BNP Collection Time: 12/17/19 3:42 PM Result Value Ref Range NT-proBNP 156 (H) <=125 pg/mL TROPONIN I Collection Time: 12/17/19 3:42 PM Result Value Ref Range TROPONIN I 0.003 <=0.034 ng/mL Glycosylated Hemoglobin (A1C) Collection Time: 12/17/19 3:42 PM Result Value Ref Range HGB A1C 6.4 (H) 4.0 - 6.0 % PROTHROMBIN TIME / INR Collection Time: 12/17/19 3:43 PM Result Value Ref Range PROTIME PATIENT 13.6 12.0 - 14.7 Seconds INR 1.1 aPTT Collection Time: 12/17/19 3:43 PM Result Value Ref Range APTT Patient 27 23 - 38 Seconds TEST, SERUM Collection Time: 12/17/19 3:43 PM Result Value Ref Range PREG SERUM Negative URINALYSIS Collection Time: 12/17/19 3:47 PM Result Value Ref Range APPEARANCE Clear Clear COLOR Yellow Yellow PH 5.0 4.8 - 8.0 SP GRAVITY 1.021 1.003 - 1.030 GLU U QUAL Normal Normal BLOOD Negative Negative KETONES Negative Negative PROTEIN Negative Negative UROBILIN Normal Normal BILIRUBIN Negative Negative NITRITE Negative Negative LEUK CORNELL 25/uL (A) Negative RBC/HPF 3 0 - 3 HPF WBC/HPF 2 0 - 5 HPF BACTERIA Few (A) Negative MUCOUS Slight (A) Negative LPF SQ EPITH 3 HPF COVID-19 (ID NOW RAPID TESTING) Collection Time: 12/17/19 3:47 PM Specimen: NASOPHARYNGEAL SWAB Result Value Ref Range SARS-CoV-2 Rapid ID NOW Not Detected Not Detected ADC / LCC - DRUG SCREEN TRIAGE Collection Time: 12/17/19 4:12 PM Result Value Ref Range BENZO U Negative Negative CATARINO U Negative Negative AMPHET Negative Negative THC Negative Negative METHADONE Negative Negative Meth U Negative Negative OPIATES Negative Negative Cocaine Metabolite Negative Negative PROPOXY Negative Negative Tric U Negative Negative PCP Negative Negative OXYCOD Negative Negative D-DIMER Collection Time: 12/17/19 5:51 PM Result Value Ref Range D-DIMER 0.43 (H) <0.41 g/mL (FEU) EKG: Reviewed by Dr. Owen 1st ekg at 1528 Atrial Fibrillation with RVR Rate 126 ND * QRS 84 QT/QTc 328/475 Comparison with prior EKG: unchanged EKG: Reviewed by Dr. Owen 2nd ekg at 15:37:08 Atrial Fibrillation with RVR Rate 102 ND * QRS 86 QT/QTc 348/453 Comparison with prior EKG: unchanged EKG: Reviewed by Dr. Owen 3rd ekg after cardizem at 15:37:24 Atrial Fibrillation Rate 92 ND * QRS 84 QT/QTc 362/447 Comparison with prior EKG: unchanged Orders and Treatments: Orders Placed This Encounter Procedures XR CHEST 1 VW CBC WITH DIFF COMP. METABOLIC PANEL (83614) MAGNESIUM N-TERMINAL PRO-BNP PROTHROMBIN TIME / INR aPTT TROPONIN I URINALYSIS COVID-19 (ID NOW RAPID TESTING) TEST, SERUM [facility] - DRUG SCREEN TRIAGE D-DIMER Glycosylated Hemoglobin (A1C) TROPONIN I Basic Metabolic Panel (NA, K, CL, CO2, GLUCOSE, BUN, CREATININE, CA) CBC with Differential O2 Per Protocol Consult Evaluation O2 Per Protocol Orders Placed This Encounter Medications diltiazem (CARDIZEM IV) injection 15 mg morpHINE injection 4 mg nitroglycerin (NITROSTAT) sublingual tablet 0.4 mg morpHINE injection 4 mg azilsartan med-chlorthalidone (EDARBYCLOR) 40-12.5 mg Tab dapagliflozin (FARXIGA) 10 mg tablet amLODIPine (NORVASC) tablet 10 mg apixaban (ELIQUIS) tablet 5 mg aspirin chewable tablet 81 mg atorvastatin (LIPITOR) tablet 80 mg escitalopram oxalate (LEXAPRO) tablet 20 mg metoprolol tartrate (LOPRESSOR) tablet 25 mg DISCONTD: metroNIDAZOLE (FLAGYL) tablet 500 mg montelukast (SINGULAIR) tablet 10 mg QUEtiapine (SEROQUEL) tablet 300 mg acetaminophen (TYLENOL) tablet 650 mg QUEtiapine (SEROQUEL) tablet 50 mg dextrose 50 % in water (D50W) injection 25 mL glucagon (GLUCAGEN DIAGNOSTIC KIT) injection 1 mg Sliding Scale Insulin - Lispro (HumaLOG) + Fsbg Testing maalox:diphenhydrAMINE:lidocaine 2 % viscous 1:1:1 (FIRST-MOUTHWASH BLM) oral suspension 15 mL vancomycin (FIRVANQ) 50 mg/mL oral solution 125 mg ED COURSE ED Course as of Dec 17 2347 Sun Dec 17, [address] Gould at [facility] for admission to perform CT PE r/o. Accepted for admission. [KM] [address] Barrow for admission who would like me to check [facility] or [place] since we are unable to update her chest CT to evaluate hx of saddle PE. [KM] ED Course User Index [KM] Kevin Barnard FNP MDM: CT chest initially ordered but radiology reports over weight limit for scanner, hx of saddle PE. Patient not hypoxic in ER. Patient currently taking Eliquis. A-fib RVR responded to one dose of cardizem. Discussed admission with [facility] Hospitalist who feels more comfortable with patient going to [place] since we are unable to scan her for PE. Patient has difficult time controlling pain in ER. Coding Diagnosis/Impression: ICD-10-CM ICD-9-CM 1. Chest pain, unspecified type R07.9 786.50 2. Atrial fibrillation with RVR I48.91 427.31 3. Saddle embolus of pulmonary artery, unspecified chronicity, unspecified whether acute cor pulmonale present I26.92 415.13 Disposition/Condition: ED Disposition None Discharge Medications: Current Discharge Medication List STOP taking these medications azilsartan med-chlorthalidone (EDARBYCLOR) 40-12.5 mg Tab Comments: Reason for Stopping: dapagliflozin (FARXIGA) 10 mg tablet Comments: Reason for Stopping: amLODIPine 10 mg tablet Comments: Reason for Stopping: apixaban 5 mg tablet Comments: Reason for Stopping: aspirin 81 mg chewable tablet Comments: Reason for Stopping: atorvastatin 80 mg tablet Comments: Reason for Stopping: metoprolol tartrate 25 mg tablet Comments: Reason for Stopping: metroNIDAZOLE 500 mg tablet Comments: Reason for Stopping: montelukast 10 mg tablet Comments: Reason for Stopping: QUEtiapine 300 mg tablet Comments: Reason for Stopping: QUEtiapine 50 mg tablet Comments: Reason for Stopping: escitalopram oxalate 20 mg tablet Comments: Reason for Stopping: furosemide 40 mg tablet Comments: Reason for Stopping: potassium chloride 10 mEq CR tablet Comments: Reason for Stopping: atomoxetine 80 mg capsule Comments: Reason for Stopping: traMADol 100 mg capsule Comments: Reason for Stopping: Follow-up: Electronically signed by: CHRISTIAN Mclain 12/17/2019 3:44 PM Associated attestation - Homero Owen MD - 12/18/2019 7:00 AM CDTOn the date of service, I reviewed the patients history, exam findings, diagnostic and any interventions or procedures in detail of the assigned advance practice provider and was available for consultation. Homero Owen Jr., MD Clinical Electric Motor Control Assembler [facility] Emergency Department documented in this encounter Miscellaneous Notes Care Plan - Nely John RN - 12/20/2019 5:20 PM CDT Problem: Infection Risk Goal: Absence of infection 12/20/2019 1720 by Nely John RN Outcome: Adequate for discharge 12/20/2019 1202 by Nely John RN Outcome: Progressing as expected Problem: Discharge Planning Goal: Absence of venous thromboembolism 12/20/2019 1720 by Nely John RN Outcome: Adequate for discharge 12/20/2019 1202 by Nely John RN Outcome: Progressing as expected Goal: Adequate for discharge 12/20/2019 1720 by Nely John RN Outcome: Adequate for discharge 12/20/2019 1202 by Nely John RN Outcome: Progressing as expected Goal: Effective communication 12/20/2019 1720 by Nely John RN Outcome: Adequate for discharge 12/20/2019 1202 by Nely John RN Outcome: Progressing as expected Problem: Pain Goal: Control of pain at or below patient's documented comfort goal 12/20/2019 1720 by Nely John RN Outcome: Adequate for discharge 12/20/2019 1202 by Nely John RN Outcome: Progressing as expected Goal: Reduction in pain sensation 12/20/2019 1720 by Nely John RN Outcome: Adequate for discharge 12/20/2019 1202 by Nely John RN Outcome: Progressing as expected Problem: Discharge Planning Goal: Absence of venous thromboembolism 12/20/2019 1720 by Nely John RN Outcome: Adequate for discharge 12/20/2019 1202 by Nely John RN Outcome: Progressing as expected Goal: Adequate for discharge 12/20/2019 1720 by Nely John RN Outcome: Adequate for discharge 12/20/2019 1202 by Nely John RN Outcome: Progressing as expected Goal: Adequate to move to next level of care 12/20/2019 1720 by Nely John RN Outcome: Adequate for discharge 12/20/2019 1202 by Nely John RN Outcome: Progressing as expected Goal: Knowledge of medication management 12/20/2019 1720 by Nely John RN Outcome: Adequate for discharge 12/20/2019 1202 by Nely John RN Outcome: Progressing as expected are Plan - Nely John RN - 12/20/2019 12:02 PM CDT Problem: Infection Risk Goal: Absence of infection Outcome: Progressing as expected Problem: Discharge Planning Goal: Absence of venous thromboembolism Outcome: Progressing as expected Goal: Adequate for discharge Outcome: Progressing as expected Goal: Effective communication Outcome: Progressing as expected Problem: Pain Goal: Control of pain at or below patient's documented comfort goal Outcome: Progressing as expected Goal: Reduction in pain sensation Outcome: Progressing as expected Problem: Discharge Planning Goal: Absence of venous thromboembolism Outcome: Progressing as expected Goal: Adequate for discharge Outcome: Progressing as expected Goal: Adequate to move to next level of care Outcome: Progressing as expected Goal: Knowledge of medication management Outcome: Progressing as expected are Plan - Jaimee Coyle RN - 12/19/2019 10:13 PM CDT Problem: Infection Risk Goal: Absence of infection 12/19/20192212 by Jaimee Coyle RN Outcome: Progressing as expected 12/19/20192212 by Jaimee Coyle RN Outcome: Progressing as expected Problem: Discharge Planning Goal: Absence of venous thromboembolism 12/19/20192212 by Jaimee Coyle RN Outcome: Progressing as expected 12/19/20192212 by Jaimee Coyle RN Outcome: Progressing as expected Goal: Adequate for discharge 12/19/20192212 by Jaimee Coyle RN Outcome: Progressing as expected 12/19/20192212 by Jaimee Coyle RN Outcome: Progressing as expected Goal: Effective communication 12/19/20192212 by Jaimee Coyle RN Outcome: Progressing as expected 12/19/20192212 by Jaimee Coyle RN Outcome: Progressing as expected Problem: Pain Goal: Control of pain at or below patient's documented comfort goal 12/19/20192212 by Jaimee Coyle RN Outcome: Progressing as expected 12/19/20192212 by Jaimee Coyle RN Outcome: Progressing as expected Goal: Reduction in pain sensation 12/19/20192212 by Jaimee Coyle RN Outcome: Progressing as expected 12/19/20192212 by Jaimee Coyle RN Outcome: Progressing as expected Problem: Discharge Planning Goal: Absence of venous thromboembolism 12/19/20192212 by Jaimee Coyle RN Outcome: Progressing as expected 12/19/20192212 by Jaimee Coyle RN Outcome: Progressing as expected Goal: Adequate for discharge 12/19/20192212 by Jaimee Coyle RN Outcome: Progressing as expected 12/19/20192212 by Jaimee Coyle RN Outcome: Progressing as expected Goal: Adequate to move to next level of care 12/19/20192212 by Jaimee Coyle RN Outcome: Progressing as expected 12/19/20192212 by Jaimee Coyle RN Outcome: Progressing as expected Goal: Knowledge of medication management 12/19/20192212 by Jaimee Coyle RN Outcome: Progressing as expected 12/19/20192212 by Jaimee Coyle RN Outcome: Progressing as expected are Plan - Rafaela Nelson RN - 12/19/2019 12:18 PM CDTSummary: Care Plans Problem: Infection Risk Goal: Absence of infection Outcome: Progressing as expected are [place] - Layne Patel RN - 12/18/2019 11:53 PM CDT Problem: Infection Risk Goal: Absence of infection Outcome: Progressing as expected Problem: Discharge Planning Goal: Absence of venous thromboembolism Outcome: Progressing as expected Goal: Adequate for discharge Outcome: Progressing as expected Goal: Effective communication Outcome: Progressing as expected Problem: Pain Goal: Control of pain at or below patient's documented comfort goal Outcome: Progressing as expected Goal: Reduction in pain sensation Outcome: Progressing as expected are [place] - Abdiel Black RN - 12/17/2019 10:30 PM CDT Problem: Infection Risk Goal: Absence of infection Outcome: Progressing as expected Problem: Discharge Planning Goal: Absence of venous thromboembolism Outcome: Progressing as expected Goal: Adequate for discharge Outcome: Progressing as expected Goal: Effective communication Outcome: Progressing as expected Problem: Pain Goal: Control of pain at or below patient's documented comfort goal Outcome: Progressing as expected Goal: Reduction in pain sensation Outcome: Progressing as expected D Nurse Fito - Leslie Tyler RN - 12/17/2019 7:01 PM [facility] [place] arrived for transport, report given to primary class teacher. D Nurse Note - Mary Martinez PCT - 12[facility]17[facility]2019 6:[facility] ETA within 30 min. D Nurse Note - Gerson Barber RN - 12/17/2019 6:12 PM CDTNurse Report Report given to Fatuma HERNANDEZ. Chief complaint, assessment findings and orders reviewed. Plan of care discussed. Gerson Barber RN D Nurse Note - Gerson Barber RN - 12/17/2019 3:45 PM CDTPatient walked to rest room. Offered wheelchair, patient declined documented in this encounter Plan of Treatment Name Type Priority Associated Diagnoses Order S chedule Basic Metabolic Panel LAB Routine EVERY MORNING AT (NA, K, CL, CO2, 0400 for 99 GLUCOSE, BUN, Occurrences st arting CREATININE, CA) 12/18/2019 u ntil 03/25/2020, 3 completed CBC with Differential LAB Routine EVERY OTHER DAY (START TIME ADJUSTABLE) for 5 Occurrences sta rting 12/18/2019 unti l 12/26/2019, 2 completed MAGNESIUM LAB Add-on EVERY MORNING A T 0400 for 3 Days starting 2019 until 0, 2 completed EKG-12 LEAD ROUTINE HEART STATION Routine ONCE fo r 1 Occurrences sta rting 12/19/2019 unti l 12/19/2019 Health Maintenance Due Date Last Done Comments [...] history exists documented as of this encounter Procedures Procedure Name Priority Date/Time Associated Diagnosis Comme nts POCT GLUCOSE Routine 12/20/2019 11:51 Results for this (AUTOMATED) AM CDT procedure are i n the results section. POCT GLUCOSE Routine 12/20/2019 8:50 Results for this (AUTOMATED) AM CDT procedure are i n the results section. CBC WITH DIFF Routine 12/20/2019 4:26 Results fo r this AM CDT procedure are i n the results section. BASIC METABOLIC PANEL Routine 12/20/2019 4:25 Re sults for this (NA, K, CL, CO2, AM CDT procedure a re in GLUCOSE, BUN, the results CREATININE, CA) section. MAGNESIUM Routine 12/20/2019 4:25 Results for this AM CDT procedure are i n the results section. POCT GLUCOSE Routine 12/19/2019 8:58 Results for this (AUTOMATED) PM CDT procedure are i n the results section. POCT GLUCOSE Routine 12/19/2019 5:04 Results for this (AUTOMATED) PM CDT procedure are i n the results section. POCT GLUCOSE Routine 12/19/2019 11:59 Results for this (AUTOMATED) AM CDT procedure are i n the results section. EKG-12 LEAD Routine 12/19/2019 9:50 AM CDT POCT GLUCOSE Routine 12/19/2019 8:25 Results for this (AUTOMATED) AM CDT procedure are i n the results section. EXTRA TUBE LAV Routine 12/19/2019 3:55 AM CDT BASIC METABOLIC PANEL Routine 12/19/2019 3:55 Re sults for this (NA, K, CL, CO2, AM CDT procedure a re in GLUCOSE, BUN, the results CREATININE, CA) section. MAGNESIUM Add-on 12/19/2019 3:55 Results for this AM CDT procedure are i n the results section. POCT GLUCOSE Routine 12/18/2019 8:46 Results for this (AUTOMATED) PM CDT procedure are i n the results section. CT CHEST PULMONARY MADDIE 12/18/2019 1:26 Chest pain, Resul ts for this ANGIOGRAM PM CDT unspecified type procedure a re in the results section. BILATERAL VENOUS MADDIE 12/18/2019 1:23 DUPLEX LOWER EXTREMITY PM CDT BY VASCULAR LAB POCT GLUCOSE Routine 12/18/2019 12:31 Results for this (AUTOMATED) PM CDT procedure are i n the results section. POCT GLUCOSE Routine 12/18/2019 8:10 Results for this (AUTOMATED) AM CDT procedure are i n the results section. BASIC METABOLIC PANEL Routine 12/18/2019 5:21 Re sults for this (NA, K, CL, CO2, AM CDT procedure a re in GLUCOSE, BUN, the results CREATININE, CA) section. CBC WITH DIFF Routine 12/18/2019 12:29 Results fo r this AM CDT procedure are i n the results section. TROPONIN I Routine 12/18/2019 12:28 Results for this AM CDT procedure are i n the results section. D-DIMER STAT 12/17/2019 5:51 Chest pain, Results for this PM CDT unspecified type procedure a re in the results section. XR CHEST 1 VW STAT 12/17/2019 4:18 Chest pain, Results fo r this PM CDT unspecified type procedure a re in the results section. ADC / LCC - DRUG STAT 12/17/2019 4:12 Chest pain, Results for this SCREEN TRIAGE PM CDT unspecified type procedure are in Atrial fibrillation the resu lts with RVR section. Saddle embolus of pulmonary artery, unspecified chronicity, unspecified whether acute cor pulmonale present COVID-19 (ID NOW RAPID STAT 12/17/2019 3:47 Chest pain, R esults for this TESTING) PM CDT unspecified type procedure a re in the results section. URINALYSIS STAT 12/17/2019 3:47 Chest pain, Results for this PM CDT unspecified type procedure a re in the results section. EKG-12 LEAD Routine 12/17/2019 3:45 PM CDT ACTIVATED PARTIAL STAT 12/17/2019 3:43 Chest pain, Result s for this THRMPLAS JUANCHO PM CDT unspecified type procedure a re in the results section. PROTHROMBIN TIME / INR STAT 12/17/2019 3:43 Chest pain, R esults for this PM CDT unspecified type procedure a re in the results section. TEST, SERUM STAT 12/17/2019 3:43 Chest pain, Re sults for this PM CDT unspecified type procedure a re in the results section. N-TERMINAL PRO-BNP STAT 12/17/2019 3:42 Chest pain, Resul ts for this PM CDT unspecified type procedure a re in the results section. GLYCOSYLATED Add-on 12/17/2019 3:42 Results for this HEMOGLOBIN (A1C) PM CDT procedure a re in the results section. CBC WITH DIFF STAT 12/17/2019 3:42 Chest pain, Results fo r this PM CDT unspecified type procedure a re in the results section. COMP. METABOLIC PANEL STAT 12/17/2019 3:42 Chest pain, Re sults for this (33938) PM CDT unspecified type procedure a re in the results section. TROPONIN I STAT 12/17/2019 3:42 Chest pain, Results for this PM CDT unspecified type procedure a re in the results section. MAGNESIUM STAT 12/17/2019 3:42 Chest pain, Results for this PM CDT unspecified type procedure a re in the results section. EKG-12 LEAD MADDIE 12/17/2019 3:37 PM CDT EKG-12 LEAD Routine 12/17/2019 3:37 PM CDT EKG-12 LEAD Routine 12/17/2019 3:28 PM CDT AGREEMENTS Routine 12/17/2019 12:01 AUTHORIZATIONS AND AM CDT IRREVOCABLE ASSIGNMENTS (FORM 2001) EMERGENCY DEPARTMENT Routine 12/17/2019 12:01 DOCUMENTS AM CDT documented in this encounter Results POCT GLUCOSE (AUTOMATED) (12/20/2019 11:51 AM CDT) Pathologist Sig nature POCT GLU 120 (H) 70 - 110 mg/dL [facility] Specimen Blood Performing Organization Address [facility]/Zipcode Phone Number [facility] CLIA: [id number] [place] [address] [place] [address] POCT GLUCOSE (AUTOMATED) (12/20/2019 8:50 AM CDT) Pathologist Sig nature POCT GLU 217 (H) 70 - 110 mg/dL [facility] Specimen Blood Performing Organization Address City/[facility] Cent[facility]ode Phone Number [facility] CLIA: [id number] [place] [address] [place] [address] CBC with Differential (12/20/2019 4:26 AM CDT) Pathologist Sig nature WBC 5.66 4.30 - 11.10 [facility] 10*3/L SERVICES RBC 4.41 3.93 - 5.25 [facility] 10*6/L SERVICES HGB 12.8 11.6 - 15.0 g/dL [facility] HCT 38.7 35.7 - 45.2 % [facility] MCV 87.8 80.6 - 95.5 fL [facility] MCH 29.0 25.9 - 32.8 pg [facility] MCHC 33.1 31.6 - 35.1 g/dL [facility] RDW-SD 43.7 39.0 - 49.9 fL [facility] RDW-CV 13.5 12.0 - 15.5 % [facility] PLT 197 166 - 358 [facility] 10*3/L SERVICES MPV 9.8 9.5 - 12.9 fL [facility] NRBC/100 WBC 0.0 0.0 - 10.0 /100 [facility] WBCs SERVICES NRBC x10^3 <0.01 10*3/L [facility] GRAN MAT (NEUT) % 48.6 % [facility] IMM GRAN % 0.00 % [facility] LYMPH % 40.6 % [facility] MONO % 6.2 % [facility] EOS % 4.1 % [facility] BASO % 0.5 % [facility] GRAN MAT x10^3(ANC) 2.75 1.88 - 7.09 [facility] 10*3/uL SERVICES IMM GRAN x10^3 <0.03 0.00 - 0.06 [facility] 10*3/uL SERVICES LYMPH x10^3 2.30 1.32 - 3.29 [facility] 10*3/uL SERVICES MONO x10^3 0.35 0.33 - 0.92 [facility] 10*3/uL SERVICES EOS x10^3 0.23 0.03 - 0.39 [facility] 10*3/uL SERVICES BASO x10^3 0.03 0.01 - 0.07 [facility] 10*3/uL SERVICES Specimen Blood - HAND, RIGHT Performing Organization Address [facility] [place] [facility] Centercode Phone Number [facility] CLIA: [id number] [place] [address] [place] [address] MAGNESIUM (12/20/2019 4:25 AM CDT) Pathologist [facility] MAGNESIUM 1.7 1.7 - 2.4 mg/dL [facility] Specimen Blood - HAND, RIGHT Performing Organization Address [facility] [place] [facility] Centercode Phone Number [facility] CLIA: [id number] [place] [address] [place] [address] Basic Metabolic Panel (NA, K, CL, CO2, GLUCOSE, BUN, CREATININE, CA) (12/20/2019 4:25 AM CDT) Pathologist Sig nature NA 137 135 - 145 [facility] mmol/L SERVICES K 4.1 3.5 - 5.0 [facility] mmol/L SERVICES CL 103 98 - 108 mmol/L [facility] CO2 TOTAL 27 23 - 31 mmol/L [facility] AGAP 7 2 - 16 [facility] BUN 10 7 - 23 mg/dL [facility] GLUCOSE 116 (H) 70 - 110 mg/dL [facility] CREATININE 0.58 0.50 - 1.04 [facility] mg/dL SERVICES CALCIUM 8.8 8.6 - 10.6 [facility] mg/dL SERVICES eGFR Calculation 115.7 mL/min/1.73m2 [facility] (Non- SERVICES [place]ani) eGFR Calculation 140.3 mL/min/1.73m2 [facility] () SERVICES Specimen Blood - HAND, RIGHT Narrative Performed At Association of Glomerular Filtration Rate (GFR) and St aging [facility] of Kidney Disease* + + +------- ------ + | GFR (mL/min/1.73 m2) | With Kidney Damage | Wi thout Kidney Damage + + +------- ------ + | >90 | Stage one | Normal + + +------- ------ + | 60-89 | Stage two | Decreased GFR + + +------- ------ + | 30-59 | Stage three | Stage three + + +------- ------ + | 15-29 | Stage four | Stage four + + +------- ------ + | <15 (or dialysis) | Stage five | Stage five + + +------- ------ + *Each stage assumes the associated GFR level has been in effect for at least three months. Stages 1 to 5, wit h or without kidney disease, indicate chronic kidney disease. Notes: Determination of stages one and two (with eGFR >59mL/min/1.73 m2) requires estimation of kidney damag e for at least three months as defined by structural or func tional abnormalities of the kidney, manifested by either: Pathological abnormalities or Markers of kidney damage (including abnormalities in the composition of the blo od or urine or abnormalities in imaging tests) . Performing Organization Address City/[facility] [place] [facility] Centercode Phone Number [facility] CLIA: [id number] [place] [address] [phone] 301 [facility] POCT GLUCOSE (AUTOMATED) (12/19/2019 8:58 PM CDT) Pathologist Sig nature POCT GLU 142 (H) 70 - 110 mg/dL [facility] Specimen Blood Performing Organization Address [facility] Phone Number [facility] CLIA: [id number] [place] [address] [phone] 301 [facility] POCT GLUCOSE (AUTOMATED) (12/19/2019 5:04 PM CDT) Pathologist Sig nature POCT GLU 113 (H) 70 - 110 mg/dL [facility] Specimen Blood Performing Organization Address [facility] Phone Number [facility] CLIA: [id number] [place] [address] [phone] 301 [facility] POCT GLUCOSE (AUTOMATED) (12/19/2019 11:59 AM CDT) Pathologist Sig nature POCT GLU 151 (H) 70 - 110 mg/dL [facility] Specimen Blood Performing Organization Address [facility] Phone Number [facility] CLIA: [id number] [place] [address] [phone] [facility] POCT GLUCOSE (AUTOMATED) (12/19/2019 8:25 AM CDT) Pathologist Sig nature POCT GLU 126 (H) 70 - 110 mg/dL [facility] Specimen Blood Performing Organization Address [facility] Phone Number [facility] CLIA: [id number] [place] [address] [place] [address] MAGNESIUM (12/19/2019 3:55 AM CDT) Pathologist Sig nature MAGNESIUM 1.8 1.7 - 2.4 mg/dL [facility] Specimen Blood - ARM, RIGHT Performing Organization Address City/[facility]/Zipcode Phone Number [facility] CLIA: [id number] [place] [address] [phone] 301 [facility] EXTRA TUBE LAV (12/19/2019 3:55 AM CDT) Specimen Blood Performing Organization Address City/[facility] [place] [facility] Centercode Phone Number [facility] CLIA: [id number] [place] [address] [place] [address] Basic Metabolic Panel (NA, K, CL, CO2, GLUCOSE, BUN, CREATININE, CA) (12/19/2019 3:55 AM CDT) Pathologist Sig nature NA 135 135 - 145 [facility] mmol/L SERVICES K 4.1 3.5 - 5.0 [facility] mmol/L SERVICES CL 102 98 - 108 mmol/L [facility] CO2 TOTAL 27 23 - 31 mmol/L [facility] AGAP 6 2 - 16 [facility] BUN 13 7 - 23 mg/dL [facility] GLUCOSE 110 70 - 110 mg/dL [facility] CREATININE 0.62 0.50 - 1.04 [facility] mg/dL SERVICES CALCIUM 8.4 (L) 8.6 - 10.6 [facility] mg/dL SERVICES eGFR Calculation 107.2 mL/min/1.73m2 [facility] (Non- SERVICES [place]) eGFR Calculation 129.9 mL/min/1.73m2 [facility] () SERVICES Specimen Blood - ARM, RIGHT Narrative Performed At [employer] of Glomerular Filtration Rate (GFR) and St aging [facility] of Kidney Disease* + + +------- ------ + | GFR (mL/min/1.73 m2) | With Kidney Damage | Wi thout Kidney Damage + + +------- ------ + | >90 | Stage one | Normal + + +------- ------ + | 60-89 | Stage two | Decreased GFR + + +------- ------ + | 30-59 | Stage three | Stage three + + +------- ------ + | 15-29 | Stage four | Stage four + + +------- ------ + | <15 (or dialysis) | Stage five | Stage five + + +------- ------ + *Each stage assumes the associated GFR level has been in effect for at least three months. Stages 1 to 5, wit h or without kidney disease, indicate chronic kidney disease. Notes: Determination of stages one and two (with eGFR >59mL/min/1.73 m2) requires estimation of kidney damag e for at least three months as defined by structural or func tional abnormalities of the kidney, manifested by either: Pathological abnormalities or Markers of kidney damage (including abnormalities in the composition of the blo od or urine or abnormalities in imaging tests) . Performing Organization Address City/State/Zipcode Phone Number [facility] CLIA: [id number] [place] [address] [address] [facility] POCT GLUCOSE (AUTOMATED) (12/18/2019 8:46 PM CDT) [facility] POCT GLU 122 (H) 70 - 110 mg/dL [facility] Specimen Blood Performing Organization Address City/[facility] [place] [facility] Centercode Phone Number [facility] CLIA: [id number] [place] [address] [place] [address] CT CHEST PULMONARY ANGIOGRAM (12/18/2019 1:26 PM CDT) Specimen Impressions Performed At PACS/VR/DOSE 1. Suboptimal study. Enhancement is inadequate, part ially due to extensive quantum mottle artifact (excessive soft tissue attenuation secondary to obese body habitus). 2. There is no large occlusive intraluminal filling defect in the main, lobar or proximal segmental pulmonary artery. A questi onable filling defect in the left lower lobe posterior segmental branch (4:1 30) may represent an artifact. 3. Stable 1.5 cm right thyroid lobe no dule. Follow-up with nonemergent thyroid ultrasound as clinically indicat ed. Hepatomegaly with hepatic steatosis. Gastric banding with fluid di stended stomach. Preliminary Report Dictated by Resident: Garcia Paris MD., have reviewe d this study and agree with the above report. Narrative Performed At PROCEDURE: CT ANGIO CHEST WITH CONTRAST - PE PROTOCOL PACS/VR/DOSE CLINICAL INDICATION: PE suspected, inter mediate prob, neg D-dimer COMPARISON: CT chest on 12/05/2019 TECHNIQUE: Helical CT was performed an d reconstructed at 1.25 mm slice thickness from lung base to apices after the administration of 100 mL Omnipaque-350 intravenous contrast. Disp lay field of view: 40 cm. FINDINGS: PULMONARY ARTERIES: Enhancement is inadequate (HU 128), part ially due to extensive quantum mottle artifact. There is no large occlusive intralumi nal filling defect in the main, lobar or proximal segmental pu lmonary artery. A questionable filling defect in the left lower lobe po sterior segmental branch (4:130) may represent nonocclusive thrombus. The exam is nondiagnostic for the evaluation of distal segmental or subseg mental pulmonary emboli. CHEST: Lower neck/thyroid: Asymmetric enlargeme nt of the right thyroid lobe containing a 1.5 cm hypodense nodule (4: 34). Lungs and Pleura: The lungs are clear. No pleural ef fusion or pneumothorax is visualized. Central airway: The central airways are patent. No bronchiectasis is present. Heart and thoracic great vessels: The he art is normal in size. No detectable coronary arterial calcificati on. No pericardial effusion is identified. The thoracic aorta and arch vessels are normal in caliber. Lymph nodes: No enlarged axillary, mediastinal, or hil ar lymphadenopathy by CT criteria. Thoracic spine and chest wall: Unremarkable, with norm al thoracic vertebral body heights. No focal aggressive osseou s lesion is present. Visualized upper abdomen: Postsurgical c hanges of gastric banding with fluid distended stomach distal to the gastric band. Th e liver is enlarged and diffusely hypodense, consistent with hepatic steatosis. Procedure Note [facility], Radiant Results Inft User - 2019 10:12 PM CDT PROCEDURE: CT ANGIO CHEST WITH CONTRAST - PE PROTOCOL CLINICAL INDICATION: PE suspected, inter mediate prob, neg D-dimer COMPARISON: CT chest on 12/05/2019 TECHNIQUE: Helical CT was performed and reconstructed at 1.25 mm slice thickness from lung base to apices after the administration of 100 mL Omnipaque-350 intravenous contrast. Disp lay field of view: 40 cm. FINDINGS: PULMONARY ARTERIES: Enhancement is inadequate (HU 128), part ially due to extensive quantum mottle artifact. There is no large occlu sive intraluminal filling defect in the main, lobar or proximal segmental pu lmonary artery. A questionable filling defect in the left lower lobe po sterior segmental branch (4:130) may represent nonocclusive thrombus. The exam is nondiagnostic for the evaluation of distal segmental or subseg mental pulmonary emboli. CHEST: Lower neck/thyroid: Asymmetric enlargeme nt of the right thyroid lobe containing a 1.5 cm hypodense nodule (4: 34). Lungs and Pleura: The lungs are clear. No pleural effusion or pneumothorax is visualized. Central airway: The central airways are patent. No bronchiectasis is present. Heart and thoracic great vessels: The he art is normal in size. No detectable coronary arterial calcificati on. No pericardial effusion is identified. The thoracic aorta and arch vessels are normal in caliber. Lymph nodes: No enlarged axillary, media stinal, or hilar lymphadenopathy by CT criteria. Thoracic spine and chest wall: Unremarka ble, with normal thoracic vertebral body heights. No focal aggressive osseou s lesion is present. Visualized upper abdomen: Postsurgical c hanges of gastric banding with fluid distended stomach distal to the ga stric band. The liver is enlarged and diffusely hypodense, consistent with hepatic steatosis. IMPRESSION 1. Suboptimal study. Enhancement is madhuri dequate, partially due to extensive quantum mottle artifact (excessive soft tissue attenuation secondary to obese body habitus). 2. There is no large occlusive intralum inal filling defect in the main, lobar or proximal segmental pulmonary ar randy. A questionable filling defect in the left lower lobe posterior segment al branch (4:130) may represent an artifact. 3. Stable 1.5 cm right thyroid lobe nod ule. Follow-up with nonemergent thyroid ultrasound as clinically indicat ed. Hepatomegaly with hepatic steatosis. Gastric banding with fluid di stended stomach. Preliminary Report Dictated by Resident: Garcia Paris MD., have reviewed this study and agree with the above report. Performing Organization Address City/State/Zipcode Phone Number PACS/VR/DOSE POCT GLUCOSE (AUTOMATED) (12/18/2019 12:31 PM CDT) Pathologist Sig nature POCT GLU 153 (H) 70 - 110 mg/dL [facility] Specimen Blood Performing Organization Address City/[facility]/Zipcode Phone Number [facility] CLIA: [id number] [place] [address] [phone] [facility] POCT GLUCOSE (AUTOMATED) (12/18/2019 8:10 AM CDT) Pathologist Sig nature POCT GLU 119 (H) 70 - 110 mg/dL [facility] Specimen Blood Performing Organization Address City/[facility] Cent[facility] Phone Number [facility] CLIA: [id number] [place] [address] [phone] [facility] Basic Metabolic Panel (NA, K, CL, CO2, GLUCOSE, BUN, CREATININE, CA) (12/18/2019 5:21 AM CDT) Pathologist Sig nature NA 136 135 - 145 [facility] mmol/L SERVICES K 4.4 3.5 - 5.0 [facility] mmol/L SERVICES CL 103 98 - 108 mmol/L [facility] SERVICES CO2 TOTAL 26 23 - 31 mmol/L [facility] SERVICES AGAP 7 2 - 16 [facility] SERVICES BUN 17 7 - 23 mg/dL [facility] SERVICES GLUCOSE 123 (H) 70 - 110 mg/dL [facility] SERVICES CREATININE 0.74 0.50 - 1.04 [facility] mg/dL SERVICES CALCIUM 8.9 8.6 - 10.6 [facility] mg/dL SERVICES eGFR Calculation 87.4 mL/min/1.73m2 [facility] (Non- SERVICES Azerbaijani) eGFR Calculation 105.9 mL/min/1.73m2 [facility] () SERVICES Specimen Blood - ARM, LEFT Narrative Performed At Association of Glomerular Filtration Rate (GFR) and St aging [facility] SERVICES of Kidney Disease* + + +------- ------ + | GFR (mL/min/1.73 m2) | With Kidney Damage | Wi thout Kidney Damage + + +------- ------ + | >90 | Stage one | Normal + + +------- ------ + | 60-89 | Stage two | Decreased GFR + + +------- ------ + | 30-59 | Stage three | Stage three + + +------- ------ + | 15-29 | Stage four | Stage four + + +------- ------ + | <15 (or dialysis) | Stage five | Stage five + + +------- ------ + *Each stage assumes the associated GFR level has been in effect for at least three months. Stages 1 to 5, wit h or without kidney disease, indicate chronic kidney disease. Notes: Determination of stages one and two (with eGFR >59mL/min/1.73 m2) requires estimation of kidney damag e for at least three months as defined by structural or func tional abnormalities of the kidney, manifested by either: Pathological abnormalities or Markers of kidney damage (including abnormalities in the composition of the blo od or urine or abnormalities in imaging tests) . Performing Organization Address City/State/Zipcode Phone Number [facility] CLIA: [id number] [place] [address] [place] [address] CBC with Differential (12/18/2019 12:29 AM CDT) Pathologist Sig nature WBC 7.17 4.30 - 11.10 [facility] 10*3/L SERVICES RBC 4.35 3.93 - 5.25 [facility] 10*6/L SERVICES HGB 12.6 11.6 - 15.0 g/dL [facility] HCT 38.2 35.7 - 45.2 % [facility] MCV 87.8 80.6 - 95.5 fL [facility] MCH 29.0 25.9 - 32.8 pg [facility] MCHC 33.0 31.6 - 35.1 g/dL [facility] RDW-SD 44.8 39.0 - 49.9 fL [facility] RDW-CV 13.9 12.0 - 15.5 % [facility] PLT 236 166 - 358 [facility] 10*3/L SERVICES MPV 10.1 9.5 - 12.9 fL [facility] NRBC/100 WBC 0.0 0.0 - 10.0 /100 [facility] WBCs SERVICES NRBC x10^3 <0.01 10*3/L [facility] GRAN MAT (NEUT) % 61.6 % [facility] IMM GRAN % 0.10 % [facility] LYMPH % 29.1 % [facility] MONO % 6.4 % [facility] EOS % 2.4 % [facility] BASO % 0.4 % [facility] SERVICES GRAN MAT x10^3(ANC) 4.41 1.88 - 7.09 [facility] 10*3/uL SERVICES IMM GRAN x10^3 <0.03 0.00 - 0.06 [facility] 10*3/uL SERVICES LYMPH x10^3 2.09 1.32 - 3.29 [facility] 10*3/uL SERVICES MONO x10^3 0.46 0.33 - 0.92 [facility] 10*3/uL SERVICES EOS x10^3 0.17 0.03 - 0.39 [facility] 10*3/uL SERVICES BASO x10^3 0.03 0.01 - 0.07 [facility] 10*3/uL SERVICES Specimen Blood - ARM, LEFT Performing Organization Address [facility] [place] [facility] Centercode Phone Number [facility] CLIA: [id number] [place], [place] [id number] [address] [place] [address] TROPONIN I (12/18/2019 12:28 AM CDT) Pathologist Sig nature TROPONIN I 0.023Comment: <=0.034 ng/mL [facility] Hemolyzed specimen SERVICES Specimen Blood - ARM, LEFT Narrative Performed At Equal or Less than 0.034 ng/ml---Normal [facility] SERVICES Note: Cardiac troponin begins to rise 3-4 hours after the onset of ischemia. Repeat in 4-6 hours if the sample w as drawn within 3-4 hours of the onset of the symptom and found normal. Between 0.035 and 0.120 ng/mL--- Borderline. Questiona ble myocardial injury or necrosis Note: Serial measurement may be necessary to confirm o r exclude the diagnosis of myocardial injury or necrosis ; Clinical correlation (symptoms, EKGs, imaging studies, and others) required; Repeat in 4-6 hours if clinically indicated. Equal or Higher than 0.121 ng/mL---Abnormal. Myocardia l Injury or Necrosis Likely Biotin has been reported to cause a negative bias, int erpret results relative to patient's use of biotin. Performing Organization Address [facility] [place] [facility] Centercooh Phone Number [facility] CLIA: [id number] [place], [place] [address] [address] [place] [address] D-DIMER (12/17/2019 5:51 PM CDT) Pathologist Sig nature D-DIMER 0.43 (H) <0.41 g/mL (FEU) [facility] Specimen Blood - VENOUS Narrative Performed At This test may be used in conjunction with a [facility] clinical pretest probability (PTP) assessment model to exclude venous thromboembolism (VTE) in patients suspected of deep venous thrombosis (DVT) and pulmonary embolism (PE) A D-Dimer value less than 0.50 g/ml (FEU) has a negative predicative value of 96 to 100% (95% CI)and 97 to 100% (95% CI) as an aid in the diagnosis of deep vein thrombosis (DVT) and pulmonary embolism when there is low or moderate pretest probability of PE or DVT. D-Dimer values are expressed in initial fibrinogen equivalent units (FEU)" The assay results should be used with other information, including the clinical context, in forming a diagnosis. Performing Organization Address City/[facility]/Zipcode Phone Number [facility] CLIA: [id number] [place] [address] XR CHEST 1 VW (12/17/2019 4:18 PM CDT) Specimen Narrative Performed At CHEST ONE VIEW PACS/VR/DOSE HISTORY: Chest pain TECHNIQUE: AP view of the chest is obt ained. COMPARISON: 12/04/2019 FINDINGS: Lungs are clear. Heart size an d mediastinal silhouette are normal. No pleural effusion or pneumotho rax is seen. CONCLUSIONS: No acute cardiopulmonary di sease. Procedure Note [facility], Radiant Results Inft User - 2019 4:23 PM CDT CHEST ONE VIEW HISTORY: Chest pain TECHNIQUE: AP view of the chest is obta ined. COMPARISON: 12/04/2019 FINDINGS: Lungs are clear. Heart size an d mediastinal silhouette are normal. No pleural effusion or pneumotho rax is seen. CONCLUSIONS: No acute cardiopulmonary di sease. Performing Organization Address City/State/Zipcode Phone Number PACS/VR/DOSE ADC / LCC - DRUG SCREEN TRIAGE (12/17/2019 4:12 PM CDT) Pathologist Sig nature BENZO U Negative Negative [facility] CATARINO U Negative Negative [facility] AMPHET Negative Negative [facility] THC Negative Negative [facility] METHADONE Negative Negative [facility] Meth U Negative Negative [facility] OPIATES Negative Negative [facility] Cocaine Metabolite Negative Negative [facility] PROPOXY Negative Negative [facility] Tric U Negative Negative [facility] PCP Negative Negative [facility] OXYCOD Negative Negative [facility] Specimen Urine - URINE, CLEAN CATCH Narrative Performed At Urine Drug Cutoff Ranges [facility] Benzodiazepines: 150 ng/mL Barbiturates: 200 ng/mL Amphetamine: 500 ng/mL Cannabinoids: 50 ng/mL Methadone: 200 ng/mL Methamphetamine: 500 ng/mL Opiates: 100 ng/mL or 2000 ng/mL Cocaine: 150 ng/mL Propoxyphene: 300 ng/mL Tricyclics: 300 ng/mL Oxycodone: 100 ng/mL PCP: 25 ng/mL The results are to be used only for medical (i.e., treatment) purposes. Unconfirmed screening results must not be used for non-medical purposes (e.g., employment testing, legal testing). Performing Organization Address City/State/Zipcode Phone Number [facility] CLIA: [id number] [place] [address] COVID-19 (ID NOW RAPID TESTING) (12/17/2019 3:47 PM CDT) SARS-CoV-2 Rapid ID Not Detected Not Detected [facility] Specimen Swab - NASOPHARYNGEAL SWAB Narrative Performed At NC NOW COVID-19 Assay is an isothermal nucleic [facility] acid amplification test intended for the qualitative detection of nucleic acid from SARS-CoV-2 viral RNA in nasopharyngeal (APPRENTICE TECHNICIAN) specimens. It is used under Emergency Use Authorization (EUA) by FDA. The limit of detection (LOD) of the assay is 125 Genome Equivalents/mL. A positive result is indicative of the presence of SARS-CoV-2 RNA. Clinical correlation with patient history and other diagnostic information is necessary to determine patient infection status. A negative (Not Detected) result does not preclude SARS-CoV-2 infection. In patients with clinical symptoms and other tests that are consistent with SARS-CoV-2 infection, negative results should be treated as presumptive negative and a new specimen should be tested with alternative PCR molecular test. Invalid: Please collect a new specimen for repeat patient testing if clinically indicated. Performing Organization Address [facility]/Zipcode Phone Number [facility] CLIA: [id number] [place] [address] URINALYSIS (12/17/2019 3:47 PM CDT) Pathologist Sig nature APPEARANCE Clear Clear [facility] COLOR Yellow Yellow [facility] PH 5.0 4.8 - 8.0 [facility] SP GRAVITY 1.021 1.003 - 1.030 [facility] GLU U QUAL Normal Normal [facility] BLOOD Negative Negative [facility] KETONES Negative Negative [facility] PROTEIN Negative Negative [facility] UROBILIN Normal Normal [facility] BILIRUBIN Negative Negative [facility] NITRITE Negative Negative [facility] LEUK CORNELL 25/uL (A) Negative [facility] RBC/HPF 3 0 - 3 HPF [facility] WBC/HPF 2 0 - 5 HPF [facility] BACTERIA Few (A) Negative [facility] MUCOUS Slight (A) Negative LPF [facility] SQ EPITH 3 HPF [facility] Specimen Urine - URINE, CLEAN CATCH Performing Organization Address [facility]/[employer] Phone Number [facility] CLIA: [id number] [place] [address] LABORATORY [address] [facility] TEST, SERUM (12/17/2019 3:43 PM CDT) Pathologist Sig nature PREG SERUM Negative [facility] Specimen Blood - VENOUS Narrative Performed At Less than 10 IU/L. If low titer or ectopic [facility] is suspected, resubmit specimen in 48-72 hours. Performing Organization Address [facility] [place] [facility] CentercoKeyed[employer] Solutions Phone Number [facility] CLIA: [id number] [place] [address] aPTT (12/17/2019 3:43 PM CDT) Pathologist Sig nature APTT Patient 27 23 - 38 Seconds [facility] Specimen Blood - VENOUS Narrative Performed At The [facility] patient population mean normal value [facility] for aPTT is 30 seconds. Performing Organization Address [facility]/[place] [facility] Centercode Phone Number [facility] CLIA: [id number] [place] [address] PROTHROMBIN TIME / INR (12/17/2019 3:43 PM CDT) PROTIME PATIENT 13.6 12.0 - 14.7 [facility] LABORATORY INR 1.1Comment: Normal [facility] INR <1.1; Warfarin [facility] Therapeutic range LABORATORY 2.0 to 3.0 or 2.5 to 3.5, depending upon the indications. Specimen Blood - VENOUS Performing Organization Address [facility] Phone Number [facility] CLIA: [id number] [place] [address] Glycosylated Hemoglobin (A1C) (12/17/2019 3:42 PM CDT) Pathologist Sig nature HGB A1C 6.4 (H) 4.0 - 6.0 % [facility] Specimen Blood - VENOUS Narrative Performed At %A1C (NGSP) Interpretation (ADA) [facility] 4.8-5.6 Normal or (Non-Diabetic Ra nge) 5.7-6.4 Increased Risk (Pre-Diabet ic) >6.5 Diabetes Indicated Performing Organization Address [facility] Phone Number [facility] CLIA: [id number] [place] [address] TROPONIN I (12/17/2019 3:42 PM CDT) Pathologist Sig nature TROPONIN I 0.003 <=0.034 ng/mL [facility] Specimen Blood - VENOUS Narrative Performed At Equal or Less than 0.034 ng/ml---Normal [facility] Note: Cardiac troponin begins to rise 3-4 hours after the onset of ischemia. Repeat in 4-6 hours if the sample was drawn within 3-4 hours of the onset of the symptom and found normal. Between 0.035 and 0.120 ng/mL--- Borderline. Questionable myocardial injury or necros is Note: Serial measurement may be necessary to confirm or exclude the diagnosis of myocardial injury or necrosis; Clinical correlation (symptoms, EKGs, imaging studies, and others) required; Repeat in 4-6 hours if clinically indicated. Equal or Higher than 0.121 ng/mL---Abnormal. Myocardial Injury or Necrosis Likely Biotin has been reported to cause a negative bias, interpret results relative to patient's use of biotin. Performing Organization Address [facility] [place] [facility] Centerco[facility] Phone Number [facility] CLIA: [id number] [place] [address] [address] N-TERMINAL PRO-BNP (12/17/2019 3:42 PM CDT) Pathologist Sig nature NT-proBNP 156 (H) <=125 pg/mL [facility] Specimen Blood - VENOUS Narrative Performed At [facility] has been reported to cause a negative [facility] bias, interpret results relative to patient's use of biotin. Performing Organization Address [facility] Phone Number [facility] CLIA: [id number] [place] [address] MAGNESIUM (12/17/2019 3:42 PM CDT) Pathologist Sig nature MAGNESIUM 1.6 (L) 1.7 - 2.4 mg/dL [facility] Specimen Blood - VENOUS Performing Organization Address [facility] Phone Number [facility] CLIA: [id number] [place] [address] COMP. METABOLIC PANEL ([id number]) (12/17/2019 3:42 PM CDT) Pathologist Sig nature NA 135 135 - 145 [facility] mmol/L [facility] K 3.9 3.5 - 5.0 [facility] mmol/L [facility] CL 100 98 - 108 mmol/L [facility] CO2 TOTAL 23 23 - 31 mmol/L [facility] AGAP 12 2 - 16 [facility] BUN 11 7 - 23 mg/dL [facility] GLUCOSE 181 (H) 70 - 110 mg/dL [facility] CREATININE 0.61 0.50 - 1.04 [facility] mg/dL [facility] TOTAL BILI 0.5 0.1 - 1.1 mg/dL [facility] CALCIUM 9.7 8.6 - 10.6 [facility] mg/dL [facility] T PROTEIN 7.9 6.3 - 8.2 g/dL [facility] ALBUMIN 4.0 3.5 - 5.0 g/dL [facility] ALK PHOS 121 34 - 122 U/L [facility] ALTv 24 5 - 35 U/L [facility] AST(SGOT) 25 13 - 40 U/L [facility] eGFR Calculation 109.2 mL/min/1.73m2 [facility] ([facility] LABORATORY Azerbaijani) eGFR Calculation 132.3 mL/min/1.73m2 [facility] () [facility] Specimen Blood - VENOUS Narrative Performed At [facility] of Glomerular Filtration Rate (GFR) [facility] and Staging of Kidney Disease* + + +- + | GFR (mL/min/1.73 m2) | With Kidney Damage | Without Kidney Damage + + +- + | >90 | Stage one | Normal + + +- + | 60-89 | Stage two | Decreased GFR + + +- + | 30-59 | Stage three | Stage three + + +- + | 15-29 | Stage four | Stage four + + +- + | <15 (or dialysis) | Stage five | Stage five + + +- + *Each stage assumes the associated GFR level has been in effect for at least three months. Stages 1 to 5, with or without kidney disease, indicate chronic kidney disease. Notes: Determination of stages one and two (with eGFR >59mL/min/1.73 m2) requires estimation of kidney damage for at least three months as defined by structural or functional abnormalities of the kidney, manifested by either: Pathological abnormalities or Markers of kidney damage (including abnormalities in the composition of the blood or urine or abnormalities in imaging tests). Performing Organization Address City/State/Zipcode Phone Number [facility] CLIA: [id number] [place] [address] CBC WITH DIFF (12/17/2019 3:42 PM CDT) [facility] WBC 5.64 4.30 - 11.10 [facility] 10*3/L [facility] RBC 4.91 3.93 - 5.25 [facility] 10*6/L [facility] HGB 14.1 11.6 - 15.0 [facility] g/dL [facility] HCT 42.0 35.7 - 45.2 % [facility] MCV 85.5 80.6 - 95.5 fL [facility] MCH 28.7 25.9 - 32.8 pg [facility] MCHC 33.6 31.6 - 35.1 [facility] g/dL [facility] RDW-SD 42.1 39.0 - 49.9 fL [facility] RDW-CV 13.5 12.0 - 15.5 % [facility] PLT 259 166 - 358 [facility] 10*3/L [facility] MPV 9.7 9.5 - 12.9 fL [facility] NRBC/100 WBC 0.0 0.0 - 10.0 /100 [facility] WBCs [facility] NRBC x10^3 <0.01 10*3/L [facility] GRAN MAT (NEUT) % 55.8 % [facility] IMM GRAN % 0.40 % [facility] LYMPH % 34.0 % [facility] MONO % 5.0 % [facility] EOS % 4.1 % [facility] BASO % 0.7 % [facility] GRAN MAT x10^3(ANC) 3.15 1.88 - 7.09 [facility] 10*3/uL [facility]OS[facility]ITAL LAB[facility] IMM GRAN x10^3 <0.03 0.00 - 0.06 [facility] 10*3/uL [facility] LYMPH x10^3 1.92 1.32 - 3.29 [facility] 10*3/uL [facility] MONO x10^3 0.28 (L) 0.33 - 0.92 [facility] [facility] 10*3/uL [facility] EOS x10^3 0.23 0.03 - 0.39 [facility] 10*3/uL [facility] BASO x10^3 0.04 0.01 - 0.07 [facility] 10*3/uL [facility] Specimen Blood - VENOUS Performing Organization Address City/State/Zipcode Phone Number [facility] CLIA: [id number] [place] [address] documented in this encounter Visit Diagnoses Diagnosis Chest pain, unspecified type - Primary Atrial fibrillation with RVR Atrial fibrillation Saddle embolus of pulmonary artery, unsp ecified chronicity, unspecified whether acute cor pulmonale present Saddle embolus of pulmonary artery witho ut acute cor pulmonale, unspecified chronicity documented in this encounter Administered Medications Medication Order MAR Action Action Date Dose Rate Site acetaminophen (TYLENOL) tablet Given 12/17/2019 9:21 PM CDT 650 mg 650 mg 650 mg, Oral, Q6HPRN, Starting 12/17/19 at 2100, Until Discontinued, Routine, Pain (scale 1-3) acetaminophen-codeine (TYLENOL #3) 300-30 Given 2019 3:21 AM CDT 1 tablet mg tablet 1 tablet 1 tablet, Oral, Q6HPRN, Starting 12/17/19 at 2352, Until Discontinued, Routine, Pain (scale 4-6) Given 12/19/2019 5:53 PM CDT 1 tablet Given 12/19/2019 11:01 AM CDT 1 tablet amLODIPine (NORVASC) tablet 7.5 mg 7.5 mg, Oral, DAILY, First dose (after l ast modification) on [place] 12/21/19 at 0900, Until Discontinued, Routine apixaban (ELIQUIS) tablet 5 mg Given 12/20/2019 8:48 AM CDT 5 mg 5 mg, Oral, BID, First dose on Wed12/18/19 at 0800, Until Discontinued, Routine Given 12/19/2019 8:00 PM CDT 5 mg Given 12/19/2019 8:16 AM CDT 5 mg aspirin chewable tablet 81 mg Given 12/20/2019 8:49 AM CDT 81 mg 81 mg, Oral, DAILY, First dose on 12/18/19 at 0900, Until Discontinued, Routine Given 12/19/2019 8:15 AM CDT 81 mg Given 12/18/2019 8:05 AM CDT 81 mg atorvastatin (LIPITOR) tablet 80 mg Given 12/19/2019 9:00 PM CDT 80 mg 80 mg, Oral, QHS, First dose on 12/17/19 at 2115, Until Discontinued, Routine Given 12/18/2019 8:52 PM CDT 80 mg Given 12/17/2019 9:21 PM CDT 80 mg dextrose 50 % in water (D50W) injection 25 mL 25 mL, Slow IV Push, PRN, Starting [place] at 2134, Until Discontinued, MADDIE, Blood Glucose < or = 70 mg/dL and patien t is unable to swallow or has mental status changes. escitalopram oxalate (LEXAPRO) tablet 20 mg Given 12/20/2019 8:49 AM CDT 20 mg 20 mg, Oral, DAILY, First dose on Wed12/18/19 at 0900, Until Discontinued, Routine Given 12/19/2019 8:16 AM CDT 20 mg Given 12/18/2019 8:06 AM CDT 20 mg furosemide (LASIX) tablet 40 mg Given 12/20/2019 8:49 AM CDT 40 mg 40 mg, Oral, DAILY, First dose on Wed12/18/19 at 0900, Until Discontinued, Routine Given 12/19/2019 8:15 AM CDT 40 mg Given 12/18/2019 8:05 AM CDT 40 mg glucagon (GLUCAGEN DIAGNOSTIC KIT) injec tion 1 mg 1 mg, Intramuscular, PRN, Starting [place] at 2134, Until Discontinued, MADDIE, Blood Glucose < or = 70 mg/dL and patient is unable to swallow or has mental changes. metoprolol tartrate (LOPRESSOR) half tab let 37.5 mg 37.5 mg, Oral, BID, First dose (after la st modification) on Wed12/20/19 at 2000, Until Discontinued, Routine montelukast (SINGULAIR) tablet 10 mg Given 12/20/2019 8:49 AM CDT 10 mg 10 mg, Oral, DAILY, First dose on Wed12/18/19 at 0900, Until Discontinued, Routine Given 12/19/2019 8:16 AM CDT 10 mg Given 12/18/2019 8:06 AM CDT 10 mg proMETHazine (PHENERGAN) tablet 12.5 mg Given 12/20/2019 4:50 AM CDT 12.5 mg 12.5 mg, Oral, Q4HPRN, Starting Tu12/19/19 at 1429, Until Discontinued, Routine, Nausea and Vomiting (N/V) QUEtiapine (SEROQUEL) tablet 300 mg Given 12/19/2019 9:00 PM CDT 300 mg 300 mg, Oral, QHS, First dose on Wed12/17/19 at 2115, Until Discontinued, Routine Given 12/18/2019 8:52 PM CDT 300 mg Given 12/17/2019 9:21 PM CDT 300 mg QUEtiapine (SEROQUEL) tablet 50 mg Given 12/20/2019 8:49 AM CDT 50 mg 50 mg, Oral, QAM, First dose on Wed12/18/19 at 0900, Until Discontinued, Routine Given 12/19/2019 8:15 AM CDT 50 mg Given 12/18/2019 8:05 AM CDT 50 mg Sliding Scale Insulin - Lispro Given 12/20/2019 8:52 AM 1 Units Left Upper (HumaLOG) + Fsbg Testing CDT Arm-SC Subcutaneous, TID MEALS+HS, First dose on Wed12/18/19 at 0800, Until Discontinued, Routine Given 12/18/2019 4:49 PM CDT 1 Units Left Arm valsartan (DIOVAN) tablet 40 mg Given 12/19/2019 8:15 AM CDT 40 mg 40 mg, Oral, DAILY, First dose on Wed12/18/19 at 0900, Until Discontinued, Routine Given 12/18/2019 8:05 AM CDT 40 mg vancomycin (FIRVANQ) 50 mg/mL oral solution Given 11/22 5:42 PM CDT 125 mg 125 mg 125 mg, Oral, QID, First dose (after last modification) on Wed12/18/19 at 0800, Until Discontinued, Routine, Reason for Anti-Infective: Documented Infection, Documented Infection Site: Abdominal, Duration of Therapy: 10 days Given 12/20/2019 11:15 AM CDT 125 mg Given 12/20/2019 8:50 AM CDT 125 mg Medication Order MAR Action Action Date Dose Rate Site amLODIPine (NORVASC) tablet 10 mg Given 12/20/2019 8:49 AM CDT 10 mg 10 mg, Oral, DAILY, First dose on Wed12/18/19 at 0900, Until Discontinued, Routine Given 12/19/2019 8:15 AM CDT 10 mg Given 12/18/2019 8:04 AM CDT 10 mg diltiazem (CARDIZEM IV) injection 15 mg Given 12/17/2019 3:35 PM CDT 15 mg 15 mg, IV Push, ONCE, 1 dose, [place] 12/17/19 at 1645, STAT, 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 Restricted medication: HOMERO OWEN famotidine (PEPCID (PF)) injection 40 mg Given 12/20/2019 4:29 PM CDT 40 mg 40 mg, Slow IV Push, ONCE, 1 dose, Wed12/20/19 at 1430, Routine iohexol (OMNIPAQUE 350 BULK-100 mL) Given 12/18/2019 1:30 PM CD T 100 mL injection 100 mL 100 mL, Intravenous, ONCE, 1 dose, Wed12/18/19 at 1330, Routine lidocaine (LIDODERM) 5 % (700 mg/patch) Given 12/19/2019 2:34 P M CDT 1 Patch patch 1 Patch 1 Patch, Topical, Administer over 12 Hours, ONCE, 1 dose, 12/19/19 at 1415, Routine maalox:diphenhydrAMINE:lidocaine 2 % viscous Given 12:30 AM CDT 15 mL 1:1:1 (FIRST-MOUTHWASH BLM) oral suspension 15 mL 15 mL, Oral, ONCE, 1 dose, [place] 12/17/19 at 2200, Routine maalox:diphenhydrAMINE:lidocaine 2 % viscous Given 2:34 PM CDT 15 mL 1:1:1 (FIRST-MOUTHWASH BLM) oral suspension 15 mL 15 mL, Oral, ONCE, 1 dose, [facility] 12/19/19 at 1415, Routine magnesium sulfate in water 2 gram/50 mL (4 %) New 8:49 AM CDT 2 g infusion 2 g 2 g, IV Piggyback, ONCE, 1 dose, Wed12/20/19 at 0800, Routine magnesium sulfate in water 4 gram/50 mL New 12/18/19 8:18 AM CDT 4,000 mg (8 %) 4,000 mg piggyback 4,000 mg, IV Infusion, ONCE, 1 dose, [facility] 12/18/19 at 0715 metoprolol tartrate (LOPRESSOR) half tablet Given 11/22 8:49 AM CDT 37.5 mg 37.5 mg 37.5 mg, Oral, BID, First dose (after last modification) on Wed12/20/19 at 0800, Until Discontinued, Routine metoprolol tartrate (LOPRESSOR) tablet 2 5 mg Given 12/19/2019 8:00 PM CDT 25 mg 25 mg, Oral, BID, First dose (after last modification) on Wed12/18/19 at 0000, Until Discontinued, Routine Given 12/19/2019 8:15 AM CDT 25 mg Given 12/18/2019 7:32 PM CDT 25 mg metroNIDAZOLE (FLAGYL) tablet 500 mg Given 12/17/2019 9:21 PM CDT 500 mg 500 mg, Oral, Q8H, 9 doses, First dose on [place] 12/17/19 at 2200, Last dose on Wed12/20/19 at 1400, Routine, Reason for Anti-Infective: Documented Infection, Documented Infection Site: Abdominal, Duration of Therapy: 7 days morpHINE injection 4 mg Given 12/17/2019 4:10 PM CDT 4 mg 4 mg, Slow IV Push, ONCE, 1 dose, [place] 12/17/19 at 1700, STAT morpHINE injection 4 mg Given 12/17/2019 5:08 PM CDT 4 mg 4 mg, Slow IV Push, ONCE, 1 dose, [place] 12/17/19 at 1815, STAT NaCl 0.9% (NS) IV infusion 250 mL New Bag 12/20/2019 9:03 AM CDT 250 mL 50 mL/hr at 50 mL/hr, IV Infusion, ONCE, 1 dose, [facility] 12/20/19 at 1000, Routine nitroglycerin (NITROSTAT) sublingual tablet Given 11/21 9:21 PM CDT 0.4 mg 0.4 mg 0.4 mg, Sublingual, ONCE, 1 dose, [place] 12/17/19 at 1800, MADDIE pantoprazole (PROTONIX) 40 mg in NaCl 0.9% Given 12/20/2019 4:2 9 PM CDT 40 mg (NS) 20 mL syringe 40 mg, IV Push, ONCE, 1 dose, [facility] 12/20/19 at 1430, 20 mL traMADoL (ULTRAM) tablet 100 mg Given 12/18/2019 8:30 AM CDT 100 mg 100 mg, Oral, Q6HPRN, 2 doses, Starting Wed12/18/19 at 0210, Until Wed12/18/19 at 0830, Routine, Pain (scale 7-10) Given 12/18/2019 2:19 AM CDT 100 mg vancomycin (FIRVANQ) 50 mg/mL oral solution Given 11/21 3:35 PM CDT 125 mg 125 mg 125 mg, Oral, QID, First dose on 12/17/19 at 2215, Until Discontinued, Routine, Reason for Anti-Infective: Documented Infection, Documented Infection Site: Abdominal, Duration of Therapy: 7 days Given 12/18/2019 10:59 AM CDT 125 mg Given 12/18/2019 10:01 AM CDT 125 mg documented in this encounter Additional Health Concerns Infection Onset Date Last Indicated Resolved Time Extended Contact- CDiff 12/06/2019 12/06/2019 COVID-19 Rule Out 12/17/2019 12/17/2019 12/17/2019 4: 21 PM CDT documented as of this encounter Insurance Payer Benefit Plan / Subscriber ID Effective Phone Address T ype Group Dates MEDICAID MEDICAID SSI PENDING 2019-Pres [address] [place] [address] documented as of this encounter
--- OUTSIDE RECORDS SUMMARY | 2020-03-01 14:27 | XMS REPORT | Summary of Care ---
:1980 Author Organization [facility] [[email or web address]] - [facility] Address [address] [place] [id number] Care Team Providers Name Role Phone Scarlett Thomas Primary Care Provider Reason for Visit Reason Comments Transition Of Care Encounter Details Date Type Department Care Team Description 12/21/2019 Transition of Care [facility] Davis Torres Transition Of Care [facility]- [address] [place] [id number] Allergies Active Allergy Reactions Severity Noted Date [...] TRANSITIONAL CARE MANAGEMENT ASSESSMENT 12/21/2019 Shasta Coronado [id number] Shasta Coronado is a 39 year old /White female was admitted on 12/17/[address] She was discharged on 12/20/19 with discharge disposition of HR- Routine Discharge. Admitting Physician: Gianluca Gould Discharge Diagnosis: Chest pain Pt. Verbalized understanding discharge instructions. Voiced understanding that she needs assistance for medical care and finacial. Working with Patient matters, knows application needs to be done MADDIE.Sent patient email as requested of [email or web address] Information. Pt. Agreed to participate in [facility]. Linked Episodes Type: Episode: Status: Noted: Resolved: Last update: Updated by: TRANSITION OF CARE tcm Active 12/20/2019 12/21/2019 8:46 AM Marilyn Torres Comments:12/20/2019 TCM Kfr-kpzt-ed-face outreach documentation: Discharge Assessment Chart Assessed: 12/21/19 [...] with the names or descriptions of any [id number]-ohl-[id number] or supplements you are currently taking?: Yes [...] ty Pending [place] [phone] documented as of this encounter
--- OUTSIDE RECORDS SUMMARY | 2020-03-01 14:27 | XMS REPORT | Summary of Care ---
:1980 Author Organization [facility] - [address] [address] Care Team Providers Name Role Phone Scarlett Thomas Primary Care Provider Jerrod Atkins pediatric clinical dietician Reason for Visit Reason Comments Hospital F/U Referral/consult [facility] Referral DME pt needs bp machine/pill box and is requesting rollator Encounter Details Date Type Department Care Team Description 12/22/2019 Patient Outreach [facility] Rafaela Atkins RN Hospital F/U; [address] Referral/c onsult [place] [facility] ([facility] Referral); [place], [place] [address] (pt needs bp [phone] machine/pill tommy x and is requesti ng rollator) Allergies Active Allergy Reactions Severity Noted Date Comments Losartan Dizziness 12/04/2019 Metformin Diarrhea 12/05/2019 documented as of this encounter (statuses as of 12/22/2019) Medications Medication Sig Dispensed Refills Start Date [...] as of this encounter (statuses as of 12/22/2019) Active Problems Problem Noted Date 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 She is a pleasant woman who recently moved from [facility]. The patient reports she is morbidly obese >500lb. She was affiliated with [facility] and she will transfer to [facility] for further assessment/treatment. She is working with [employer] and has completed paperwork and will mailoff today. The patient has family/friend support re: transportation. CM encouraged the patient to become established at [facility] in [place]. CM will mail the patient a BP machine/batteries/large pill box. The patient was inquiring about a bariatric rollator. CM will discuss with management and request [employer](if available). Pt verbalized understanding. Pt's hearing for disability was pushed back to January d/t the court not having all of the paperwork/notes from hospital. The patient has CM's contact information for further support/questions/concerns. THOMAS Badillo, RN, [facility] Outpatient Clinical Biochemical GeneticistOracle Financials DeveloperAtrium Health Pineville O: [phone] M: [phone] documented in this encounter Plan of Treatment [...] Universi ty Pending [place] [phone] documented as of this encounter
--- OUTSIDE RECORDS SUMMARY | 2020-03-01 14:28 | XMS REPORT | Summary of Care ---
:1980 Author Organization [facility] - [facility] Address [address] [place] [address] Care Team Providers Name Role Phone Jerrod Atkins RNcellar pumper Pcp, Does Not Have A Primary Care Provider Reason for Referral (Routine) Status Reason Specialty Diagnoses / Referred By Referred To Procedures Contact Contact New Request IM-GASTROENTEROLO Diagnoses Gastroesophageal reflux disease with esophagitis without hemorrhage Rosa Barba Procedures Discharge Follow-Up: Specialty Service IM-GASTROENTEROLOGY; 1 Week G, MEDICAL OFFICE TECHNOLOGY INSTRUCTOR [address] [facility] [id number] [place] [address] Reason for Visit Reason Comments Epigastric Pain Auth/Cert Status Reason Specialty Diagnoses / Referred By Referred To Procedures Contact Contact Medicine - Diagnoses pulmonary embolism (saddle PE) June 10c Inpatient only [address] [place] [address] Fax: Encounter Details Date Type Department Care Team Description 12/26/2019 Emergency ADC-Emergency Rosa Barba, Epigastri c pain (Primary Dx); Department MEDICAL OFFICE TECHNOLOGY INSTRUCTOR Gastroesophageal reflux disease with eso phagitis without hemorrhage; [address] [facility] 301 [facility] Morbid obe sity with body mass index of [id number] [place] [address] [phone] Allergies Active Allergy Reactions Severity Noted Date Comments Losartan Dizziness 12/04/2019 Metformin Diarrhea 12/05/2019 documented as of this encounter (statuses as of 12/26/2019) Medications Medication Sig Dispensed Refills Start Date [...] 40-12.5 mg TabIndications: Chest pain, unspecified type sucralfate 1 gram Take 1 tablet by 30 tablet 0 12/26/2019 Active tabletIndications: mouth before Epigastric pain, meals and at Gastroesophageal bedtime. 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 documented as of this encounter Last Filed Vital Signs Vital Sign Reading Time Taken Comments Blood Pressure 170/102 12/26/2019 3:00 AM CDT Pulse 72 12/26/2019 3:00 AM CDT Temperature 36.6 C (97.8 F) 12/26/2019 12:58 AM CDT Respiratory Rate 15 12/26/2019 1:00 AM CDT Oxygen Saturation 98% 12/26/2019 3:00 AM CDT Inhaled Oxygen Concentration - - Weight 233.6 kg (515 lb) 12/26/2019 12:58 AM CDT Height - - Body Mass Index 69.85 12/05/2019 2:00 AM CDT documented in this encounter Discharge Instructions Rosa Dunlap NP - 12/26/2019Diagnosis: GERD / epigastric pain Prescription for Carafate Continue the Protonix, zofran and T#3 prescribed earlier Referral sent to GI for follow up Avoid spicy, fatty or gaseous foods, bland diet until seen by GI Abstain from alcohol use Return to ED for acute worsening or any new concern documented in this encounter ED Notes Brent Aguilar RN - 12/26/2019 12:57 AM CDTPatient states, "I had lap band 11/2010 and it is causing a lot of pain. I was just seen at [facility] yesterday and they did a CT and blood work and they told me to follow up with GI but I don't have any insurance to follow up with GI. I just want to get this lap band removed." documented in this encounter Miscellaneous Notes ED Nurse Note - Brent Aguilar, RN - 12/26/2019 3:05 AM CDTPt given printed and verbal discharge instructions regarding epigastric pain, encouraged hydration, Prescriptions provided Pt verbalized understanding of instructions, pt awake alert oriented, resp reg unlabored, skin w/d, color appropriate for race, moves all ext well,pt encouraged to follow up with pcp Advised to seek medical attention for new/prolonged/worsening of symptoms, Symptoms improved No adverse reaction to meds given in ER noted upon discharge PIV d'cd, dressing to site, catheter in tact. Awake, alert oriented, resp reg unlabored, skin w/d, pt leaving amb with steady gait, in no apparent distress, D Nurse Note - Cierra Saunders, RN - 12/26/2019 1:12 AM CDTPatient report received by Anne Balbuena RN. documented in this encounter Plan of Treatment [...] Name Priority Date/Time Associated Diagnosis Comme nts ADC / LCC - DRUG STAT 12/26/2019 1:48 AM Epigastric pain R esults for this SCREEN TRIAGE CDT procedure are in the results section. CBC WITH DIFF STAT 12/26/2019 1:48 AM Epigastric pain Resu lts for this CDT procedure are i n the results section. BASIC METABOLIC STAT 12/26/2019 1:48 AM Epigastric pain Re sults for this PANEL (NA, K, CL, CDT procedure are in CO2, GLUCOSE, BUN, the resul ts CREATININE, CA) section. HEPATIC FUNCTION STAT 12/26/2019 1:48 AM Epigastric pain R esults for this PANEL (04026) CDT procedure are in (ALB,T.PRO,BILI the results T,BU/BC,ALT,AST,ALK section. PHOS) TROPONIN I STAT 12/26/2019 1:48 AM Epigastric pain Resul ts for this CDT procedure are i n the results section. LIPASE STAT 12/26/2019 1:48 AM Epigastric pain Resul ts for this CDT procedure are i n the results section. documented in this encounter Results ADC / LCC - DRUG SCREEN TRIAGE (12/26/2019 1:48 AM CDT) BENZO U Negative Negative [facility] CATARINO U Negative Negative [facility] AMPHET Negative Negative [facility] THC Negative Negative [facility] METHADONE Negative Negative [facility] Meth U Negative Negative [facility] OPIATES Presumptive Negative [facility] Positive (A) HOSPITAL LABORATORY Cocaine Metabolite Negative Negative [facility] PROPOXY Negative Negative [facility] Tric U Negative Negative [facility] PCP Negative Negative [facility] OXYCOD Negative Negative [facility] Specimen Urine - URINE, CLEAN CATCH Narrative Performed At Urine Drug Cutoff Ranges [facility] Benzodiazepines: 150 ng/mL Barbiturates: 200 ng/mL [...] employment testing, legal testing). Performing Organization Address [facility] Phone Number [facility] CLIA: [id number] [place] [address] LABORATORY [address] [facility] Lipase Serum (12/26/2019 1:48 AM CDT) Pathologist Sig nature LIPASE 70 0 - 220 U/L [facility] Specimen Blood - VENOUS Performing Organization Address [facility] Phone Number [facility] CLIA: [id number] [place] [address] LAB[address] Troponin I (12/26/2019 1:48 AM CDT) Pathologist Sig [facility] TROPONIN I <0.012 <=0.034 ng/mL [facility] Specimen Blood - VENOUS Narrative Performed At Equal or Less than 0.034 ng/ml---Normal [facility] Note: Cardiac troponin begins to rise [...] patient's use of biotin. Performing Organization Address [facility] Phone Number [facility] CLIA: [id number] [place] [address] Hepatic Function Panel (ALB, T.PRO, BILI T, BU/BC, ALT, AST, ALK PHOS) (12/26/2019 1:48 AM CDT) Pathologist Sig nature TOTAL BILI 0.2 0.1 - 1.1 mg/dL [facility] BILI UNCON 0.2 0.1 - 1.1 mg/dL [facility] BILI CONJ 0.0 0.0 - 0.3 mg/dL [facility] T PROTEIN 6.6 6.3 - 8.2 g/dL [facility] ALBUMIN 3.6 3.5 - 5.0 g/dL [facility] ALK PHOS 113 34 - 122 U/L [facility] ALTv 30 5 - 35 U/L [facility] AST(SGOT) 34 13 - 40 U/L [facility] Specimen Blood - VENOUS Performing Organization Address City/State/Zipcode Phone Number [facility] CLIA: [id number] [place] [address] Basic Metabolic Panel (NA, K, CL, CO2, GLUCOSE, BUN, CREATININE, CA) (12/26/2019 1:48 AM CDT) [facility] NA 138 135 - 145 [facility] mmol/L [facility] K 3.9 3.5 - 5.0 [facility] mmol/L [facility] CL 104 98 - 108 mmol/L [facility] CO2 TOTAL 28 23 - 31 mmol/L [facility] AGAP 6 2 - 16 [facility] BUN 9 7 - 23 mg/dL [facility] GLUCOSE 126 (H) 70 - 110 mg/dL [facility] CREATININE 0.62 0.50 - 1.04 [facility] mg/dL [facility] CALCIUM 8.9 8.6 - 10.6 [facility] mg/dL [facility] eGFR Calculation 107.2 mL/min/1.73m2 [facility] ([facility] LABORATORY Cymro) eGFR Calculation 129.9 mL/min/1.73m2 [facility] () [facility] Specimen Blood - VENOUS Narrative Performed At Association of Glomerular Filtration Rate (GFR) [facility] and Staging of Kidney Disease* [...] tests). Performing Organization Address City/State/Zipcode Phone Number [facility] CLIA: [id number] [place] [address] CBC with Differential (12/26/2019 1:48 AM CDT) [facility] WBC 5.27 4.30 - 11.10 [facility] 10*3/L [facility] RBC 3.89 (L) 3.93 - 5.25 [facility] 10*6/L [facility] HGB 11.2 (L) 11.6 - 15.0 [facility] g/dL [facility] HCT 34.3 (L) 35.7 - 45.2 % [facility] MCV 88.2 80.6 - 95.5 fL [facility] MCH 28.8 25.9 - 32.8 pg [facility] MCHC 32.7 31.6 - 35.1 [facility] g/dL [facility] RDW-SD 44.4 39.0 - 49.9 fL [facility] RDW-CV 13.7 12.0 - 15.5 % [facility] PLT 205 166 - 358 [facility] 10*3/L [facility] MPV 10.0 9.5 - 12.9 fL [facility] NRBC/100 WBC 0.0 0.0 - 10.0 /100 [facility] WBCs [facility] NRBC x10^3 <0.01 10*3/L [facility] GRAN MAT (NEUT) % 60.7 % [facility] IMM GRAN % 0.40 % [facility] LYMPH % 29.4 % [facility] MONO % 5.1 % [facility] EOS % 3.8 % [facility] BASO % 0.6 % [facility] GRAN MAT x10^3(ANC) 3.20 1.88 - 7.09 [facility] 10*3/uL [facility] IMM GRAN x10^3 <0.03 0.00 - 0.06 [facility] 10*3/uL [facility] LYMPH x10^3 1.55 1.32 - 3.29 [facility] 103/uL [facility] MONO x10^3 0.27 (L) 0.33 - 0.[address]uL [facility] EOS x10^3 0.20 0.03 - 0.[address] LABORATORY BASO x10^3 0.03 0.01 - 0.[address] LABORATORY Specimen Blood - VENOUS Performing Organization Address City/State/Zipcode Phone Number [facility] CLIA: [id number] [place], [place] [id number] LABORATORY [address] documented in this encounter Visit Diagnoses Diagnosis Epigastric pain - Primary Abdominal pain, epigastric Gastroesophageal reflux disease with eso phagitis without hemorrhage Morbid obesity with body mass index of 5 0 or higher documented in this encounter Administered Medications Medication Order MAR Action Action Date Dose Rate Site dicyclomine (BENTYL) Given 12/26/2019 1:45 AM 20 mg Right injection 20 mg CDT Dorsogluteal-IM 20 mg, Intramuscular, QID, First dose on Wed12/26/19 at 0800, Until Discontinued, Routine Medication Order MAR Action Action Date Dose Rate Site famotidine (PEPCID (PF)) injection Given 12/26/2019 1:43 AM CDT 20 mg 20 mg 20 mg, Slow IV Push, ONCE, 1 dose, Wed12/26/19 at 0245, MADDIE FENTanyl PF (SUBLIMAZE Given 12/26/2019 2:47 AM 100 mcg Right Dorsogluteal-IM (PF)) injection 100 mcg CDT 100 mcg, Intramuscular, ONCE, 1 dose, Wed12/26/19 at 0345, Routine maalox:diphenhydrAMINE:lidocaine 2 % viscous Given 08/2019 1:42 AM CDT 15 mL 1:1:1 (FIRST-MOUTHWASH BLM) oral suspension 15 mL 15 mL, Oral, ONCE, 1 dose, 12/26/19 at 0245, Routine documented in this encounter Additional Health Concerns Infection Onset Date Last Indicated Resolved Time Extended Contact- CDiff 12/06/2019 12/06/2019 documented as of this encounter Insurance Payer Benefit Plan / Subscriber ID Effective Phone Address T ype Group Dates MEDICAID MEDICAID SSI PENDING 2019-Pres [address] [place] [address] documented as of this encounter
--- OUTSIDE RECORDS SUMMARY | 2020-03-01 14:28 | XMS REPORT | Summary of Care ---
:1980 Author Organization [facility] Address [address] [place] [address] Care Team Providers Name Role Phone Jerrod Atkins RNpreschool head teacher Pcp, Does Not Have A Primary Care Provider Reason for Visit Reason Comments Follow-up Assessment Encounter Details Date Type Department Care Team Description 12/29/2019 Patient Outreach [facility] Rafaela Atkins RN Follow-up; [address] [address] Allergies Active Allergy Reactions Severity Noted Date Comments Losartan Dizziness 12/04/2019 Metformin Diarrhea 12/05/2019 documented as of this encounter (statuses as of 12/29/2019) Medications Medication Sig Dispensed Refills Start Date [...] Chest pain, for 14 days. 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 The patient stated she was still sleeping and will call back once she wakes up. Results for SHASTA CORONADO ( ) as of 12/29/2019 09:29 Ref. Range 08/15/2019 04:38 12/17/2019 15:42 HGB A1C Latest Ref Range: 4.0 - 6.0 % 5.9 6.4 (H) THOMAS Badillo, RN, [facility] Outpatient Auto Parts ManagerDesign Engineering SpecialistAtrium Health [facility]ann[facility] O: [phone] M: [phone] documented in this encounter Plan of Treatment Health Maintenance Due Date Last Done Comments PNEUMOCOCCAL 0-64 YEARS COMBINED 02/23/1986 SERIES (1 of 3 - PCV13) EYE EXAM 02/23/1990 URINE MICROALBUMIN 02/23/1990 Depression Screening 1992 FOOT EXAM 02/23/1998 DTaP,Tdap,and Td Vaccines (1 - 02/23/1999 Tdap) PAP SMEAR 08/28/2007 08/27/2004, 12/13/2003 INFLUENZA VACCINE (#1) 2019 HgA1C 06/15/2020 12/17/2019, 08/15/2019 LDL-C 08/14/2020 08/15/2019 CREATININE (SERUM) 12/25/2020 12/26/2019, 12/20/2019, 12/19/2019, Additional history exists documented as of this encounter Results Not on filedocumented in this encounter Additional Health Concerns Infection Onset Date Last Indicated Resolved Time Extended Contact- CDiff 12/06/2019 12/06/2019 documented as of this encounter Insurance Payer Benefit Plan / Subscriber ID Effective Phone Address T ype Group Dates MEDICAID MEDICAID SSI PENDING 2019-Pres [address] Pending PENDING PENDING ent [facility] [place] [address] documented as of this encounter
--- OUTSIDE RECORDS SUMMARY | 2020-03-01 14:28 | XMS REPORT | Summary of Care ---
:1980 Author Organization [facility] - [address] [address] Care Team Providers Name Role Phone Jerrod Atkins ring packer Pcp, Does Not Have A Primary Care Provider Jerrod Rutledge Community Health Worker Reason for Visit Reason Comments Follow-up spoke to pt Encounter Details Date Type Department Care Team Description 01/10/2020 Patient Outreach [facility] Jessica Rutledge Follow-up (spoke to [address] pt ) [place], [place] [address] Allergies Active Allergy Reactions Severity Noted Date Comments Losartan Dizziness 12/04/2019 Metformin Diarrhea 12/05/2019 documented as of this encounter (statuses as of 01/10/2020) Medications Medication Sig Dispensed Refills Start Date End Date Status traMADol 100 mg capsule Take 50 mg by 0 Active mouth 3 (three) times daily. potassium chloride 10 Take 2 tablets 14 tablet 0 10/23/2019 Active mEq CR by mouth daily. tabletIndications: Saddle embolus of pulmonary artery without acute cor pulmonale, unspecified chronicity apixaban 5 mg Take 1 tablet by 60 tablet 2 12/20/2019 03/19/20 20 Active tabletIndications: deep mouth 2 (two) vein thrombosis times daily for prevention, prevention [...] before Epigastric pain, meals and at Gastroesophageal reflux bedtime. 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 Coronado to follow up with her and she stated she was doing well but wouldlike to speak to CM Verónica Atkins about some DME, so I will let her know. Ms. Coronado informed me that herfasting glucose today was 127 and is trying to follow a heart healthy diet. I will follow up with Ms. Coronado in the next few weeks and have CM give her a call. documented in this encounter Plan of Treatment [...] [address] [place] [address] documented as of this encounter
--- OUTSIDE RECORDS SUMMARY | 2020-03-01 14:28 | XMS REPORT | Summary of Care ---
:1980 Author Organization [facility] [[email or web address]] - [address] [address] Care Team Providers Name Role Phone Jerrod Atkins sound designer Pcp, Does Not Have A Primary Care Provider Jerrod Rutledge Community Health Worker Reason for Visit Reason Comments Follow-up referral sent Encounter Details Date Type Department Care Team Description 01/01/2020 Patient Outreach [facility] Jessica Rutledge Follow-up ([address] sent ) [place], [place] [address] Allergies Active Allergy Reactions Severity Noted Date Comments Losartan Dizziness 12/04/2019 Metformin Diarrhea 12/05/2019 documented as of this encounter (statuses as of 01/01/2020) Medications Medication Sig Dispensed Refills Start Date [...] as of this encounter (statuses as of 01/01/2020) Active Problems Problem Noted Date 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 documented in this encounter Plan of Treatment [...] [employer] Pending [place] [address] documented as of this encounter
--- OUTSIDE RECORDS SUMMARY | 2020-03-01 14:28 | XMS REPORT | Summary of Care ---
:1980 Author Organization [address] [address] Care Team Providers Name Role Phone Jerrod Atkins RNscientific diver Pcp, Does Not Have A Primary Care Provider Jerrod Rutledge Community Health Worker Reason for Visit Reason Comments DME Forms Encounter Details Date Type Department Care Team Description 01/15/2020 Patient Outreach [facility] Atkins RN DME; Forms [address] [address] Allergies Active Allergy Reactions Severity Noted Date Comments Losartan Dizziness 12/04/2019 Metformin Diarrhea 12/05/2019 documented as of this encounter (statuses as of 01/22/2020) Medications Medication Sig Dispensed Refills Start Date [...] as of this encounter (statuses as of 01/22/2020) Active Problems Problem Noted Date 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 BP machine with large cuff,glucometer with strips, weight scale and indigent application for [place]. Pt was still in bed and CM did not want to enter the small space d/t COVID guidelines. CM left DME outside of her door and the patient called CM on the phone; she was able to bring all equipment inside. CM will f/u with the patient in a week to review bp, glucose, and weight. The patient agreed with plan. THOMAS Badillo, RN, [facility] Outpatient Chain Saw OperatorMeatcutterNovant Health [facility] Medical Center O: [phone] M: [phone] documented in this encounter Plan of Treatment [...] [address] [place] [address] documented as of this encounter
--- OUTSIDE RECORDS SUMMARY | 2020-03-01 14:29 | XMS REPORT | Summary of Care ---
:1980 Author Organization [facility] - [address] [address] Care Team Providers Name Role Phone Jerrod Atkins RNbeam builder helper Pcp, Does Not Have A Primary Care Provider Jerrod Rutledge Community Health Worker Reason for Visit Reason Comments Follow-up Forms DME Encounter Details Date Type Department Care Team Description 01/22/2020 Patient Outreach [facility] Rafaela Atkins RN Follow-up; Forms; [address] [address] Allergies Active Allergy Reactions [...] encounter Progress Notes Rafaela Atkins RN - 01/22/2020 11:58 AM CSTCHP f/u: CM attempted to contact patient to f/u on bp, glucose, and weight. CM left vm requesting a CB. THOMAS Badillo, RN, [facility] Outpatient Electroplater AutomaticTelecine OperatorCaromont Regional Medical Center O: [phone] M: [phone] documented in this encounter Plan of Treatment [...] [address] P[address] [place] [address] documented as of this encounter
--- OUTSIDE RECORDS SUMMARY | 2020-03-01 14:29 | XMS REPORT | Summary of Care ---
:1980 Author Organization [address] [address] Care Team Providers Name Role Phone Jerrod Atkins landfill gas collection operator Pcp, Does Not Have A Primary Care Provider Jerrod Rutledge Community Health Worker Reason for Visit Reason Comments Assessment Follow-up Encounter Details Date Type Department Care Team Description 01/29/[address] 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 The patient did not return previous call attempt. THOMAS Badillo, RN, [facility] Outpatient Dental Appliance MechanicChange Management FacilitatorFormerly [facility], [facility] O: [phone] M: [phone] documented in this encounter Plan of Treatment [...] Universi ty Pending [place] [phone] documented as of this encounter
--- OUTSIDE RECORDS SUMMARY | 2020-03-01 14:29 | XMS REPORT | Summary of Care ---
:1980 Author Organization [address] [address] Care Team Providers Name Role Phone Pcp, Does Not Have A Primary Care Provider Reason for Visit Reason Comments Follow-up 3rd attemptflavia Encounter Details Date Type Department Care Team Description 02/02/2020 Patient Outreach [facility] Rafaela Atkins RN Follow-up ([address] [place] [address] [address] [place] [address] attempt, l eft vm) [place], [place] [address] Allergies Active Allergy Reactions Severity Noted Date Comments Losartan Dizziness 12/04/2019 Metformin Diarrhea 12/05/2019 documented as of this encounter (statuses as of 02/02/2020) Medications Medication Sig Dispensed Refills Start Date [...] as of this encounter (statuses as of 02/02/2020) Active Problems Problem Noted Date 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 Pt has not returned any calls. Pt will be dis-enrolled from [facility]. THOMAS Badillo, RN, [facility] Outpatient Fruit And Vegetable InspectorPbx SupervisorBetsy Johnson Regional Hospital O: [phone] M: [phone] documented in this encounter Plan of Treatment [...] Universi ty Pending [place] [id number] documented as of this encounter
[2020-03-01] MEDS ORDERED: METOPROLOL TARTRATE 5 MG/5 ML INJ IV ONE ×2 (14:52→15:53)
[2020-03-01] MEDS ORDERED: METOPROLOL TAR 50 MG TAB ONE (14:52)
[2020-03-01 15:17] LABS: Absolute Lymphocytes (CBC) 2.2 K/uL (0.7-4.9); MPV 8.5 fL (7.6-11.3); RBC Red Blood Cell Count 5.01 M/uL (3.86-4.86)
[2020-03-01 15:18] LABS: Protime INR 0.98
[2020-03-01 15:29] LABS: ALT/SGPT 33 U/L (12-78); AST/SGOT 20 U/L (15-37); Albumin 3.2 g/dL (3.4-5.0); Alkaline Phosphatase 128 U/L (45-117); BUN Blood Urea Nitrogen 15 mg/dL (7-18); Bicarbonate 30 mmol/L (21-32); Bilirubin Direct < 0.1 mg/dL (0-0.2); Bilirubin Total 0.3 mg/dL (0.2-1.0); Glucose Level 145 mg/dL (74-106); Magnesium 1.9 mg/dL (1.8-2.4); NT PRO-BNP 451 pg/mL (<125); Potassium 4.6 mmol/L (3.5-5.1); Protein, Total 7.9 g/dL (6.4-8.2); Sodium Level 140 mmol/L (136-145); Troponin (Emerg Dept Use Only) < 0.02 ng/mL (0.0-0.045)
[2020-03-01] MEDS ORDERED: ONDANSETRON 4 MG/2 ML VIAL ONE (15:57)
[2020-03-01] MEDS ORDERED: MORPHINE 4 MG/ML SYR ONE (15:57)
--- NOTE | 2020-03-01 16:46 | RAD REPORT ---
EXAM DESCRIPTION: RAD - Chest Single View - 03/01/2020 3:39 pm CLINICAL HISTORY: CHEST PAIN, left side radiating to the arm, shortness of breath and palpitations COMPARISON: January [id number] TECHNIQUE: AP portable chest image was obtained 03/01/2020 3:39 pm . FINDINGS: No peripheral mass consolidation. No ground-glass opacification seen. No failure or volume overload. Interstitial pattern matches comparison. Heart and vasculature are normal. No measurable p leural effusion and no pneumothorax. No acute bony abnormality seen. No acute aortic findings suspect ed. IMPRESSION: No acute cardiopulmonary process. No significant change from comparison study.
[2020-03-01] MEDS ORDERED: APIXABAN 5 MG TABLET ONE (17:09)
[2020-03-01] MEDS ORDERED: NA CHLORIDE 0.9% 250 ML ONE (17:09)
--- NOTE | 2020-03-01 17:24 | EDPHYS ---
Physician Documentation [facility] Name: Shasta Coronado Age: 40 yrs Sex: Female : 1980 Arrival Date: 03/01/2020 Time: 14:17 Bed 3 Private MD: ED Physician Kevin Jack HPI: 03/01 14:25 This 40 yrs old Female presents to ER via EMS with complaints of Chest Pain, cp Shortness Of Breath, Palpitations. 14:25 The patient or guardian reports chest pain that is located primarily in the anterior cp chest wall. Onset: 3 day(s) ago. 14:25 The pain radiates to the left arm. Associated signs and symptoms: Pertinent positives: cp lower extremity pain, lower extremity swelling, palpitations, shortness of breath, Pertinent negatives: diaphoresis, syncope. 14:25 The chest pain is described as sharp. cp 14:25 Duration: The patient or guardian reports a single episode, that is still ongoing. cp Patient reports running out of prescribed Eliquis and metoprolol and reports history of PE and atrial fibrillation. Historical: - Allergies: 14:22 Losartan; hb - Home Meds: 14:22 Eliquis Oral [Active]; Metoprolol Tartrate Oral [Active]; amlodipine oral [Active]; hb Seroquel Oral [Active]; atorvastatin oral oral [Active]; Farxiga oral oral [Active]; citalopram oral [Active]; - PMHx: 14:22 Hypertension; Pneumonia; Pulmonary Embolism; hb 14:27 Atrial Fib; hb - PSHx: 14:22 Appendectomy; Lithotripsy; Lap Band; ; pituitary tumor rmoved; biopsy of hb thyroid; - Immunization history:: Adult Immunizations up to date. - Social history:: Smoking status: Patient reports the use of cigarette tobacco products, denies chronic smoking, but will smoke occasionally. ROS: 14:30 Constitutional: Negative for body aches, chills, fever, poor PO intake. cp 14:30 Eyes: Negative for injury, pain, redness, and discharge. cp 14:30 ENT: Negative for ear pain, sore throat, difficulty swallowing, difficulty handling secretions. 14:30 Cardiovascular: Positive for chest pain, edema, palpitations. 14:30 Respiratory: Positive for cough, shortness of breath, at rest. Negative for wheezing. 14:30 Abdomen/GI: Negative for abdominal pain, nausea, vomiting, and diarrhea. 14:30 Neuro: Negative for altered mental status, headache, syncope, weakness. 14:30 All other systems are negative. Exam: 14:25 ECG was reviewed by the Attending Physician. cp 14:33 Constitutional: The patient appears in no acute distress, alert, awake, cp non-diaphoretic, non-toxic, well developed, well nourished, morbid obesity 14:33 Head/Face: Normocephalic, atraumatic. cp 14:33 Eyes: Periorbital structures: appear normal, Conjunctiva: normal, no exudate, no injection, Sclera: no appreciated abnormality, Lids and lashes: appear normal, bilaterally. 14:33 ENT: External ear(s): are unremarkable, Nose: is normal, Mouth: Lips: moist, Oral mucosa: moist, Posterior pharynx: is normal, airway is patent, no erythema, no exudate. 14:33 Chest/axilla: Inspection: normal, Palpation: is normal, no crepitus, no tenderness. 14:33 Cardiovascular: Rate: tachycardic, Rhythm: irregular, Pulses: Pulses are 2+ in right radial artery and left radial artery. Edema: is not appreciated, JVD: is not appreciated. 14:33 Respiratory: the patient does not display signs of respiratory distress, Respirations: labored breathing, is not present, shallow respirations, that is mild, Breath sounds: are clear throughout, no decreased breath sounds, no stridor, no wheezing. 14:33 Abdomen/GI: Inspection: obese Palpation: abdomen is soft and non-tender, in all quadrants. 14:33 Back: CVA tenderness, is absent. 14:33 Skin: cellulitis, is not appreciated, no rash present. 14:33 Neuro: Orientation: to person, place \T\ time. Mentation: is normal, Cerebellar function: is grossly normal, Motor: moves all fours, strength is normal, Sensation: is normal. Vital Signs: 14:18 BP 146 / 106; Pulse 128; Resp 20; Temp 97.2; Pulse Ox 95% on R/A; Weight 233.6 kg; hb Height 6 ft. (182.88 cm); Pain 8/10; 15:00 BP 148 / 104; Pulse 110; Resp 21; Pulse Ox 95% ; sv 15:40 BP 136 / 86; Pulse 118; Resp 20; Pulse Ox 98% on R/A; Pain 8/10; hb 16:50 BP 105 / 58; Pulse 109; Resp 20; Pulse Ox 96% ; sv 17:00 BP 112 / 71; Pulse 75; Resp 19; Pulse Ox 96% ; sv 17:32 BP 121 / 72; Pulse 74; Resp 22; Pulse Ox 96% on R/A; hb 14:18 Body Mass Index 69.85 (233.60 kg, 182.88 cm) hb MDM: 14:40 Patient medically screened. cp 17:23 The patient was not given aspirin in the Emergency Department. Administered by EMS. cp 17:23 Data reviewed: vital signs, nurses notes, lab test result(s), EKG, radiologic studies, cp plain films, ultrasound, I have discussed the patient's presentation/case with the attending Emergency Department Physician; and as a result, I will discharge patient. Test interpretation: by ED physician or midlevel provider: ECG, plain radiologic studies. Counseling: I had a detailed discussion with the patient and/or guardian regarding: the historical points, exam findings, and any diagnostic results supporting the discharge/admit diagnosis, lab results, radiology results, the need for outpatient follow up, an loan adviser, to return to the emergency department if symptoms worsen or persist or if there are any questions or concerns that arise at home. Response to treatment: the patient's symptoms have markedly improved after treatment, VSS, HR markedly improved. Patient not observed to be in respiratory distress with oxygen sats 96% on RA. Will discharge to home for continued monitoring. 03/01 14:23 Order name: Basic Metabolic Panel; Complete Time: 15:46 cp 03/01 15:46 Interpretation: Normal except: GLUC 145; GFR 74. cp 03/01 14:23 Order name: CBC with Diff; Complete Time: 15:46 cp 03/01 15:46 Interpretation: Normal except: RBC 5.01. cp 03/01 14:23 Order name: LFT's; Complete Time: 15:46 cp 03/01 14:23 Order name: Magnesium; Complete Time: 15:46 cp 03/01 14:23 Order name: NT PRO-BNP; Complete Time: 15:46 cp 03/01 14:23 Order name: PT-INR; Complete Time: 15:46 cp 03/01 14:23 Order name: Troponin (emerg Dept Use Only); Complete Time: 15:46 cp 03/01 15:46 Interpretation: Reviewed. cp 03/01 14:23 Order name: XRAY Chest (1 view); Complete Time: 17:22 cp 03/01 14:29 Order name: US Extremity Venous W Compression Donaldo cp 03/01 17:27 Order name: SARS-COV-2 RT PCR EDMS 03/01 14:23 Order name: EKG; Complete Time: 14:48 cp 03/01 14:23 Order name: Cardiac monitoring; Complete Time: 14:24 cp 03/01 14:23 Order name: EKG - Nurse/Tech; Complete Time: 14:24 cp 03/01 14:23 Order name: IV Saline Lock; Complete Time: 14:41 cp 03/01 14:23 Order name: Labs collected and sent; Complete Time: 14:41 cp 03/01 14:23 Order name: O2 Per Protocol; Complete Time: 14:41 cp 03/01 14:23 Order name: O2 Sat Monitoring; Complete Time: 14:41 cp EC:25 Rate is 134 beats/min. Rhythm is irregular. QRS interval is normal. QT interval is cp normal. Interpreted by me. Reviewed by me. Administered Medications: 14:41 Drug: Metoprolol 5 mg Route: IVP; Site: right forearm; hb 14:41 Drug: Metoprolol 50 mg Route: PO; hb 15:15 Follow up: Response: No adverse reaction hb 15:40 Drug: Metoprolol 5 mg Route: IVP; Site: right antecubital; hb 18:25 Follow up: Response: No adverse reaction hb 15:48 Drug: morphine 4 mg Route: IVP; Site: right antecubital; hb 16:51 Follow up: Response: No adverse reaction hb 15:49 Drug: Zofran (Ondansetron) 4 mg Route: IVP; Site: right antecubital; hb 16:51 Follow up: Response: No adverse reaction hb 17:04 Drug: Eliquis 5 mg Route: PO; hb 18:24 Follow up: Response: Medication administered at discharge. hb 17:04 Drug: NS 0.9% 250 ml Route: IV; Rate: bolus; Site: right femoral; hb 17:25 Follow up: Response: No adverse reaction; IV Status: Completed infusion; IV Intake: hb 250ml Disposition: 03/01/20 17:23 Discharged to Home. Impression: Chronic atrial fibrillation, Shortness of breath, Chest pain, unspecified. - Condition is Stable. - Discharge Instructions: Atrial Fibrillation, Nonspecific Chest Pain, Shortness of Breath. - Prescriptions for Eliquis 5 mg Oral tablet - take 1 tablet by ORAL route 2 times per day; 60 tablet. Metoprolol Tartrate 25 mg Oral Tablet - take 1 tablet by ORAL route 2 times per day with a meal; 60 tablet. - Medication Reconciliation Form, Thank You Letter, Antibiotic Education, Prescription Opioid Use form. - Follow up: Private Physician; When: 2 - 3 days; Reason: Recheck today's complaints. - Problem is chronic. - Symptoms have improved. Addendum: 03/03/2020 17:41 Co-signature as Attending Physician, Kevin Jack MD I agree with the assessment and k dr plan of care. Signatures: Dispatcher [employer] [facility] Kevin Jack MD MD kdr Blade Wick PA PA cp Kelli Larkin, RN RN hb Corrections: (The following items were deleted from the chart) 03/01 14:54 14:47 Chest Single View ordered. [facility] 14:54 14:47 Extrem Venous W Compress Donaldo ordered. [facility] 16:33 14:59 CORONAVIRUS+MR.LAB.BRZ ordered. [facility] 17:55 17:23 03/01/2020 17:23 Discharged to Home. Impression: Chronic atrial fibrillation; hb Shortness of breath; Chest pain, unspecified. Condition is Stable. Forms are Medication Reconciliation Form, Thank You Letter, Antibiotic Education, Prescription Opioid Use. Follow up: Private Physician; When: 2 - 3 days; Reason: Recheck today's complaints. Problem is chronic. Symptoms have improved. cp 03/02 14:13 03/01 14:25 Associated signs and symptoms: Pertinent positives: lower extremity pain, cp lower extremity swelling, shortness of breath, Pertinent negatives: diaphoresis, syncope, cp
--- NOTE | 2020-03-01 17:24 | ER ---
Nurse's Notes [facility] Name: Shasta Coronado Age: 40 yrs Sex: Female : 1980 Arrival Date: 03/01/2020 Time: 14:17 Bed 3 Private MD: Diagnosis: Chronic atrial fibrillation;Shortness of breath;Chest pain, unspecified Presentation: 03/01 14:18 Chief complaint: EMS states: left sided chest pain that radiates to left arm, SOB, and hb palpitations x 3 days. Ran out of her metoprolol a few weeks ago. BP 140/80, HR 120-160s, SpO2 94% on RA. Pt reports she was inpatient in December for PE. Coronavirus screen: At this time, the client does not indicate any symptoms associated with coronavirus-19. Ebola Screen: No symptoms or risks identified at this time. Initial Sepsis Screen: Does the patient meet any 2 criteria? HR > 90 bpm. Yes Does the patient have a suspected source of infection? No. Patient's initial sepsis screen is negative. Risk Assessment: Do you want to hurt yourself or someone else? Patient reports no desire to harm self or others. Onset of symptoms was February 28, 2020. 14:18 Method Of Arrival: EMS: [facility] 14:18 Acuity: DANIEL 2 hb Triage Assessment: 14:22 General: Appears in no apparent distress. Behavior is calm, cooperative. Pain: Pain hb currently is 8 out of 10 on a pain scale. EENT: No signs and/or symptoms were reported regarding the EENT system. Neuro: Level of Consciousness is awake, alert, obeys commands, Oriented to person, place, time, situation. Cardiovascular: Capillary refill < 3 seconds Patient's skin is warm and dry. Rhythm is atrial fibrillation with rapid ventricular response. Respiratory: Respiratory effort is even, labored, Respiratory pattern is regular, symmetrical, Breath sounds are diminished bilaterally. GI: No signs and/or symptoms were reported involving the gastrointestinal system. : No signs and/or symptoms were reported regarding the genitourinary system. Derm: Skin is pink, warm \T\ dry. Musculoskeletal: No signs and/or symptoms reported regarding the musculoskeletal system. Historical: - Allergies: 14:22 Losartan; hb - Home Meds: 14:22 Eliquis Oral [Active]; Metoprolol Tartrate Oral [Active]; amlodipine oral [Active]; hb Seroquel Oral [Active]; atorvastatin oral oral [Active]; Farxiga oral oral [Active]; citalopram oral [Active]; - PMHx: 14:22 Hypertension; Pneumonia; Pulmonary Embolism; hb 14:27 Atrial Fib; hb - PSHx: 14:22 Appendectomy; Lithotripsy; Lap Band; ; pituitary tumor rmoved; biopsy of hb thyroid; - Immunization history:: Adult Immunizations up to date. - Social history:: Smoking status: Patient reports the use of cigarette tobacco products, denies chronic smoking, but will smoke occasionally. Screenin:24 Abuse screen: Denies threats or abuse. Denies injuries from another. Nutritional hb screening: No deficits noted. Tuberculosis screening: No symptoms or risk factors identified. Fall Risk Total Davis Fall Scale indicates Low Risk Score (25-44 pts). Fall prevention measures have been instituted. Side Rails Up X 2 Frequent Obs/Assesments occuring As available Patient and Family Educated on Fall Prevention Program and strategies. Assessment: 14:24 General: see triage assessment. hb 15:18 Reassessment: US at the bedside. sv 15:46 Reassessment: Pt c/o left sided chest pain that radiates to left arm and shoulder. PA hb Page notified, Morphine and Zofran administered as ordered. 17:15 Reassessment: Patient appears in no apparent distress at this time. Patient and/or hb family updated on plan of care and expected duration. Pain level reassessed. Patient is alert, oriented x 3, equal unlabored respirations, skin warm/dry/pink. Vital Signs: 14:18 BP 146 / 106; Pulse 128; Resp 20; Temp 97.2; Pulse Ox 95% on R/A; Weight 233.6 kg; hb Height 6 ft. (182.88 cm); Pain 8/10; 15:00 BP 148 / 104; Pulse 110; Resp 21; Pulse Ox 95% ; sv 15:40 BP 136 / 86; Pulse 118; Resp 20; Pulse Ox 98% on R/A; Pain 8/10; hb 16:50 BP 105 / 58; Pulse 109; Resp 20; Pulse Ox 96% ; sv 17:00 BP 112 / 71; Pulse 75; Resp 19; Pulse Ox 96% ; sv 17:32 BP 121 / 72; Pulse 74; Resp 22; Pulse Ox 96% on R/A; hb 14:18 Body Mass Index 69.85 (233.60 kg, 182.88 cm) hb ED Course: 14:17 Patient arrived in ED. hb 14:20 Triage completed. hb 14:22 Blade Wick PA is PHCP. cp 14:22 Kevin Jack MD is Attending Physician. cp 14:22 Arm band placed on. hb 14:24 Patient has correct armband on for positive identification. Bed in low position. Call hb light in reach. Side rails up X2. air sampling and monitoring on. Pulse ox on. NIBP on. 14:24 Patient has correct armband on for positive identification. Bed in low position. Call mh5 light in reach. Side rails up X2. Warm blanket given. air sampling and monitoring on. Pulse ox on. NIBP on. 14:24 Patient maintains SpO2 saturation greater than 95% on room air. hb 14:25 Inserted saline lock: 20 gauge in right forearm, using aseptic technique. Blood sv collected. Flushed right forearm with 5 ml normal saline. 15:37 Kelli Larkin, RN is Primary Nurse. hb 15:40 XRAY Chest (1 view) In Process Unspecified. EDMS 15:54 US Extremity Venous W Compression Donaldo In Process Unspecified. EDMS 17:54 No provider procedures requiring assistance completed. IV discontinued, intact, hb bleeding controlled, No redness/swelling at site. Administered Medications: 14:41 Drug: Metoprolol 5 mg Route: IVP; Site: right forearm; hb 14:41 Drug: Metoprolol 50 mg Route: PO; hb 15:15 Follow up: Response: No adverse reaction hb 15:40 Drug: Metoprolol 5 mg Route: IVP; Site: right antecubital; hb 18:25 Follow up: Response: No adverse reaction hb 15:48 Drug: morphine 4 mg Route: IVP; Site: right antecubital; hb 16:51 Follow up: Response: No adverse reaction hb 15:49 Drug: Zofran (Ondansetron) 4 mg Route: IVP; Site: right antecubital; hb 16:51 Follow up: Response: No adverse reaction hb 17:04 Drug: Eliquis 5 mg Route: PO; hb 18:24 Follow up: Response: Medication administered at discharge. hb 17:04 Drug: NS 0.9% 250 ml Route: IV; Rate: bolus; Site: right femoral; hb 17:25 Follow up: Response: No adverse reaction; IV Status: Completed infusion; IV Intake: hb 250ml Intake: 17:25 IV: 250ml; Total: 250ml. hb Outcome: 17:23 Discharge ordered by MD. cp 17:54 Discharged to home via wheelchair, with family. hb 17:54 Condition: stable 17:54 Discharge instructions given to patient, family, Instructed on discharge instructions, follow up and referral plans. medication usage, Demonstrated understanding of instructions, follow-up care, medications, Prescriptions given X 2. 17:55 Patient left the ED. Signatures: Dispatcher [employer] Mile Steve RN RN Blade Up PA PA cp Baxter, Heather, RN RN hb Martinez, Maria [facility] Corrections: (The following items were deleted from the chart) 16:33 16:13 CORONAVIRUS+MR.LAB.JOSSYArnaldo drawn and sent. [address]
[2020-03-01] MEDS ORDERED: KETOROLAC 30 MG/ML INJ ONE (17:49)
--- NOTE | 2020-03-01 18:45 | RAD REPORT ---
EXAM DESCRIPTION: US - Extrem Venous W Compress Donaldo - 03/01/2020 3:54 pm CLINICAL HISTORY: Pain;Swelling COMPARISON: None. TECHNIQUE: Real-time sonographic evaluation of the bilateral lower extremity common femoral, superfi cial femoral, popliteal and posterior tibial veins was performed. FINDINGS: Normal compressibility, flow augmentation, phasic flow and spontaneous flow are identified in the left lower extremity common femoral, superficial femoral, popliteal and posterior tibial vein s. No intraluminal filling defects seen. The right lower extremity popliteal vein shows [id number] compression but Doppler evaluation did no t show good blood flow. This is believed to be technical. There may be a minimal amount of thrombus a long 1 wall. This is believed to be old thrombus. The common femoral, superficial femoral and ankle v eins show no evidence for thrombus. IMPRESSION: No acute DVT in either lower extremity. The right popliteal vein appears to have a very minimal amount of whole thrombus along 1 wall.
[2020-03-06 07:23] VITALS: TEMP 97.2
[2020-03-06 07:27] VITALS: O2SAT 96
[2020-03-06 07:29] VITALS: BP 121/72
== END 2020-03-01 17:55 | disposition home or self-care (01) ==
LOC: ER 14:12
DX: R07.89 Other chest pain (principal); I48.20 Chronic atrial fibrillation, unspecified; I10 Essential (primary) hypertension; F17.210 Nicotine dependence, cigarettes, uncomplicated; Z20.828 Contact with and (suspected) exposure to other viral communicable diseases; Z86.711 Personal history of pulmonary embolism; Z88.8 Allergy status to other drugs, medicaments and biological substances
CPT/HCPCS: 36415; 71045; 80048; 80076; 83735; 83880; 84484; 85025; 85610; 93005; 93970; 99285; J2405; J7050; U0003

== ENCOUNTER 2021-09-25 01:02 | Emergency (ER) | payer OTHER ==
[2021-09-25] MEDS ORDERED: MORPHINE 4 MG/ML SYR ONE ×2 (02:34→04:23)
[2021-09-25 02:38] LABS: Urine Blood 3+ (Negative); Urine Glucose 2+ (Negative); Urine Protein 1+ (Negative); Urine Specific Gravity 1.015 (1.005-1.030)
[2021-09-25 03:03] LABS: Protime INR 1.02
[2021-09-25 03:05] LABS: Absolute Lymphocytes (CBC) 1.9 K/uL (0.7-4.9); Hematocrit 42.4 % (36.0-45.0); MCV 81.3 fL (80-100); MPV 8.4 fL (7.6-11.3); RBC Red Blood Cell Count 5.22 M/uL (3.86-4.86)
[2021-09-25 03:15] LABS: Potassium 3.8 mmol/L (3.5-5.1); Troponin High Sensitivity 6.1 pg/mL (<58.9)
[2021-09-25 03:32] LABS: Urine Yeast PRESENT (NONE SEEN)
[2021-09-25 03:33] LABS: Urine Bacteria <20 /HPF (<20)
--- NOTE | 2021-09-25 03:47 | ER ---
Nurse's Notes [facility] Name: Shasta Coronado Age: 41 yrs Sex: Female : 1980 Arrival Date: 09/25/2021 Time: 01:05 Bed 13 Private MD: Dar Walker Diagnosis: Chest pain, unspecified Presentation: 09/25 01:54 Chief complaint: Patient states: CP nausea and pain in my kidneys started yesterday. ke1 Coronavirus screen: Vaccine status: Patient reports being unvaccinated. Ebola Screen: No symptoms or risks identified at this time. Initial Sepsis Screen: Does the patient meet any 2 criteria? No. Patient's initial sepsis screen is negative. Does the patient have a suspected source of infection? No. Patient's initial sepsis screen is negative. Risk Assessment: Do you want to hurt yourself or someone else? Patient reports no desire to harm self or others. Onset of symptoms was September 25, 2021. 01:54 Method Of Arrival: Ambulatory ke 01:54 Acuity: DANIEL 3 ke1 Triage Assessment: 01:56 General: Appears uncomfortable, Behavior is appropriate for age. Pain: Complains of ke1 pain in chest, R and L flank Pain radiates to shoulder Pain currently is 7 out of 10 on a pain scale. at worst was 9 out of 10 on a pain scale. level that patient reports is acceptable is 4 out of 10 on a pain scale. Quality of pain is described as stabbing. Neuro: Level of Consciousness is awake, alert, Oriented to person, place, time, situation. Cardiovascular: Heart tones S1 S2 Capillary refill < 3 seconds JVD is absent Patient's skin is warm and dry. Pulses are all present. Rhythm is sinus rhythm. Respiratory: Respiratory effort is even, unlabored, Respiratory pattern is regular, symmetrical. GI: Abdomen is obese. 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 - Social history:: Smoking status: Patient/guardian denies using tobacco, the patient reports quitting approximately 3 years ago. - Family history:: not pertinent. - Hospitalizations: : No recent hospitalization is reported. Screenin:20 Abuse screen: Denies threats or abuse. Nutritional screening: No deficits noted. ke1 Tuberculosis screening: No symptoms or risk factors identified. Fall Risk None identified. Assessment: 02:15 Pain: Pain began gradually. ke1 02:20 Reassessment: see triage. ke1 Vital Signs: 01:46 BP 160 / 87; Pulse 91; Resp 18; Temp 98.8(O); Pulse Ox 99% on R/A; mw2 01:53 Weight 213.19 kg; Height 6 ft. (182.88 cm); Pain 7/10; ke1 01:53 Body Mass Index 63.74 (213.19 kg, 182.88 cm) ke1 ED Course: 01:05 Patient arrived in ED. mr 01:05 Dar Walker DO is Private Physician. mr 01:10 Kavin Schuster MD is Attending Physician. rn 01:48 Meño Arellano RN is Primary Nurse. ke1 01:55 Triage completed. ke1 01:58 XRAY Chest (1 view) In Process Unspecified. EDMS 02:19 Inserted saline lock: 20 gauge in left antecubital area, using aseptic technique. ke1 02:20 Arm band placed on. ke1 02:20 Call light in reach. Side rails up X 1. Side rails up X2. Client placed on continuous ke1 cardiac and pulse oximetry monitoring. NIBP monitoring applied. engine monitor on. Pulse ox on. NIBP on. 02:21 Patient maintains SpO2 saturation greater than 95% on room air. ke1 04:46 No provider procedures requiring assistance completed. IV discontinued. ke1 Administered Medications: 02:35 Drug: morphine 4 mg Route: IVP; Infused Over: 4 mins; Site: left antecubital; ke1 03:00 Follow up: Response: Pain is decreased ke1 04:08 Drug: DiFLUcan (fluconazole) 200 mg Route: PO; ke1 04:19 Follow up: Response: No adverse reaction ke1 04:19 Drug: morphine 4 mg Route: IVP; Infused Over: 4 mins; Site: left antecubital; ke1 04:47 Follow up: Response: Pain is decreased ke1 Medication: 04:47 VIS not applicable for this client. ke1 Outcome: 03:46 Discharge ordered by . catherine 04:46 Discharged to home ambulatory. ke1 04:46 Condition: good 04:46 Discharge instructions given to patient. 04:47 Patient left the ED. ke1 Signatures: Dispatcher [employer] Rafaela Snider Roman, MD MD rn [place], [facility] Meño Arellano RN RN ke1
--- NOTE | 2021-09-25 03:47 | EDPHYS ---
Physician Documentation [facility] Name: Shasta Coronado Age: 41 yrs Sex: Female : 1980 Arrival Date: 09/25/2021 Time: 01:05 Bed 13 Private MD: Dar Walker ED Physician Kavin Schuster HPI: 09/25 02:20 This 41 yrs old Female presents to ER via Ambulatory with complaints of Chest Pain, rn Back Pain, Nausea. 02:20 The patient or guardian reports chest pain that is located primarily in the chest rn diffusely. 02:20 Onset: yesterday. The pain does not radiate. Associated signs and symptoms: Pertinent rn positives: nausea, Pertinent negatives: abdominal pain, palpitations, shortness of breath, syncope, vomiting. The chest pain is described as aching, burning. Duration: The patient or guardian reports multiple episodes, that are intermittent. Modifying factors: The symptoms are alleviated by nothing. the symptoms are aggravated by nothing. Severity of pain: At its worst the pain was moderate in the emergency department the pain is unchanged. The patient has experienced similar episodes in the past. The patient has not recently seen a physician. Pt reports chest pain, back pain, kidney pain, nausea. Began a few days ago. No trauma. Does not feel ill. No fever. No urinary symptoms. Reports hx of PE but takes eliquis and compliant. NO hemoptysis. States has had cath in past, was clear, no stents. Reports has chest pain and kidney pain atleast once monthly, states usually waits it out or goes to ER.. 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 - Social history:: Smoking status: Patient/guardian denies using tobacco, the patient reports quitting approximately 3 years ago. - Family history:: not pertinent. - Hospitalizations: : No recent hospitalization is reported. ROS: 02:20 Constitutional: Negative for fever, chills, and weight loss, Eyes: Negative for injury, rn pain, redness, and discharge, Neck: Negative for injury, pain, and swelling, Cardiovascular: Negative for palpitations, and edema, Respiratory: Negative for cough, wheezing, and pleuritic chest pain, Abdomen/GI: Negative for abdominal pain, vomiting, diarrhea, and constipation, Back: Negative for injury MS/Extremity: Negative for injury and deformity, Skin: Negative for injury, rash, and discoloration, Neuro: Negative for headache, weakness, numbness, tingling, and seizure. Exam: 02:20 Constitutional: This is a well developed, well nourished patient who is awake, alert, rn and in no acute distress. Head/Face: Normocephalic, atraumatic. Cardiovascular: Regular rate and rhythm. No pulse deficits. Respiratory: No increased work of breathing, no retractions or nasal flaring. Abdomen/GI: Soft, non-tender Skin: Warm, dry MS/ Extremity: Pulses equal, no cyanosis. Neuro: Awake and alert, GCS 15 Vital Signs: 01:46 BP 160 / 87; Pulse 91; Resp 18; Temp 98.8(O); Pulse Ox 99% on R/A; mw2 01:53 Weight 213.19 kg; Height 6 ft. (182.88 cm); Pain 7/10; ke1 01:53 Body Mass Index 63.74 (213.19 kg, 182.88 cm) ke1 MDM: 01:10 Patient medically screened. rn 03:44 Differential diagnosis: acute pericarditis, anxiety, chest wall pain, congestive heart rn failure costochondritis, esophagitis, gastritis, gastroesophageal reflux disease (GERD), pleurisy, pneumonia, pneumothorax. Data reviewed: vital signs, nurses notes, lab test result(s), EKG, radiologic studies, plain films, and as a result, I will discharge patient. Counseling: I had a detailed discussion with the patient and/or guardian regarding: the historical points, exam findings, and any diagnostic results supporting the discharge/admit diagnosis, lab results, radiology results, the need for outpatient follow up, to return to the emergency department if symptoms worsen or persist or if there are any questions or concerns that arise at home. 03:45 Response to treatment: the patient's symptoms have mildly improved after treatment. rn 03:45 Special discussion: Based on the patient's history, exam, and Dx evaluation, there is rn no indication for emergent intervention or inpatient Tx. It is understood by the patient/guardian that if the Sx's persist or worsen they need to return immediately for re-evaluation. I discussed with the patient/guardian in detail that at this point there is no indication for admission to the hospital. It is understood, however, that if the symptoms persist or worsen the patient needs to return immediately for re-evaluation. Based on the history and exam findings, there is no indication for further emergent testing or inpatient evaluation. 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 I discussed with the patient/guardian the need to see the primary care provider for further evaluation of the symptoms. 09/25 01:42 Order name: Basic Metabolic Panel; Complete Time: 03: 09/25 01:42 Order name: CBC with Diff; Complete Time: 03: 09/25 01:42 Order name: NT PRO-BNP; Complete Time: : rn 09/25 01:42 Order name: PT-INR; Complete Time: 03: rn 09/25 01:42 Order name: Troponin HS; Complete Time: : rn 09/25 01:42 Order name: SARS-COV-2 RT PCR (Document "Date of Onset" if Symptomatic); Complete Time: rn 09/25 01:42 Order name: XRAY Chest (1 view) 09/25 01:42 Order name: EKG; Complete Time: 01:43 rn 09/25 01:42 Order name: Urine Microscopic Only; Complete Time: 03: rn 09/25 02:38 Order name: Urine Dipstick-Ancillary; Complete Time: 03: EDUT 09/25 03:36 Order name: Urine Culture EDUT 09/25 01:42 Order name: Cardiac monitoring; Complete Time: :49 rn 09/25 01:42 Order name: EKG - Nurse/Tech; Complete Time: rn 09/25 01:42 Order name: IV Saline Lock; Complete Time: 02: rn 09/25 01:42 Order name: Labs collected and sent; Complete Time: 02: rn 09/25 01:42 Order name: O2 Per Protocol; Complete Time: rn 09/25 01:42 Order name: O2 Sat Monitoring; Complete Time: 01:49 rn 09/25 01:42 Order name: Urine Dipstick-Ancillary (obtain specimen); Complete Time: 02:47 rn Administered Medications: 02:35 Drug: morphine 4 mg Route: IVP; Infused Over: 4 mins; Site: left antecubital; ke1 03:00 Follow up: Response: Pain is decreased ke1 04:08 Drug: DiFLUcan (fluconazole) 200 mg Route: PO; ke1 04:19 Follow up: Response: No adverse reaction ke1 04:19 Drug: morphine 4 mg Route: IVP; Infused Over: 4 mins; Site: left antecubital; ke1 04:47 Follow up: Response: Pain is decreased ke1 Disposition Summary: 09/25/21 03:46 Discharge Ordered Location: Home rn Problem: new rn Symptoms: have improved rn Condition: Stable rn Diagnosis - Chest pain, unspecified rn Followup: rn - With: Private Physician - When: As needed - Reason: Recheck today's complaints, Re-evaluation by your physician Discharge Instructions: - Discharge Summary Sheet rn - Nonspecific Chest Pain, Adult rn - Pain Without a Known Cause rn Forms: - Medication Reconciliation Form rn - Thank You Letter rn - 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
[2021-09-25] MEDS ORDERED: FLUCONAZOLE 100 MG TAB ONE (03:53)
[2021-09-25 05:01] VITALS: BP 160/87; TEMP 98.8; O2SAT 99
--- NOTE | 2021-09-25 13:50 | EKG ---
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
--- NOTE | 2021-09-25 14:20 | RAD REPORT ---
EXAM DESCRIPTION: RAD - Chest Single View - 09/25/2021 1:56 am CLINICAL HISTORY: 41 years, Female, CHEST PAIN COMPARISON: None. FINDINGS: Single view of the chest was obtained portable. No prior films are available for compariso n. The cardiomediastinal silhouette demonstrate to be unremarkable. The heart is not enlarged. The thoracic aorta is unremarkable. Costophrenic angles are sharp. No areas of consolidation or masses are seen. The rest of the soft tissue and bony structures demonstrate to be unremarkable. IMPRESSION: No acute cardiopulmonary process identified. Electronically signed by: Markus Pena MD 09/25/2021 3:02 AM CDT Due to temporary technical issues with the PACS/Fluency reporting system, reports are being signed by the in house radiologist without review as a courtesy to ensure prompt reporting. The interpreting r adiologist is fully responsible for the content of the report.
== END 2021-09-25 04:47 | disposition home or self-care (01) ==
LOC: ER 01:02
DX: R07.9 Chest pain, unspecified (principal); R11.0 Nausea; Z20.822 Contact with and (suspected) exposure to COVID-19; I10 Essential (primary) hypertension; I48.91 Unspecified atrial fibrillation; Z88.8 Allergy status to other drugs, medicaments and biological substances; Z79.01 Long term (current) use of anticoagulants
CPT/HCPCS: 93005; 87088; 85025; 87086; 80048; 36415; 85610; 84484; 83880; 71045; U0003; 81003; 81015; 87077; 87186

== ENCOUNTER 2022-09-02 02:58 | Emergency (ER) | payer OTHER ==
--- OUTSIDE RECORDS SUMMARY | 2022-09-02 03:32 | XMS REPORT | Continuity of Care Document ---
:1980 Author Organization [facility] t Address [address] [facility] [address] [place] [address] Support Name Relationship Address Phone BLANCA FRYE [address] [phone] [place] [address] Cassy Frye Child [address] [place] [address] Gunjan Frye Unavailable Unavailable Rosa Frye Mother Unavailable Unavailable Blanca Frye Sibling [address] 432 [phone] [place] [address] Tim Blanca Frye Sibling [address] [place] [address] TIM CAO Primary Care Physician [address] [place] [address] JACKSON MCFARLANE MD Emergency Provider [address] [place] [address] BLANCA FRYE Next of Kin [address] [place] [address] LINNETTE VELASCO, LALITHA Elder Emergency Provider [address] [facility] [address] [place] [address] MD LAYA HAWKINS MD A Emergency Provider [address] [phone] [place] [address] MD ARISTEO WOODS MD Emergency Provider [address] [place] [address] OTHER, ENTER NAME IN Primary Care Physician Unavailable Unav ailable NOTES ROMULO MIGUEL Other Provider Unavailable Unavailable STEFFEN MORALES MD Emergency Provider [address] [place] [address] PHYSICIAN, NO Primary Care Physician Unavailable Unavailab porter TYRESEMARVINCOURTAMNA Next of Kin [address] [place] [address] NEGRA BURNS MD Admitting Provider [address] [place] [address] LINA FIERRO Next of Kin [address] [place] [address] ERMIAS POTTER Primary Care Physician [address] [place] [address] MD JACKSON MCFARLANE Emergency Provider [address] [place] [address] BLANCA FRYE Sibling [address] [place] [address] BLANCA FRYE(MPOA) Sibling CR [address] Unavailable [place] [id number] MD CARLOS [facility] Admitting Provider [address] [place] [address] MD VALENTINO SAINT PAUL Emergency Provider [address] [place] [address] MD FARSHAD SMITH JR Admitting Provider [address] [place] [address] DO TJ PARISI Emergency Provider [address] [email or web address] [address] MD ESTELA BARAKAT A Emergency Provider [facility] [place] [address] MD NENA ERAZO Emergency Provider [address] [place] [address] LEAH FRYE Unavailable [address] [phone] [place] [address] BLANCA FRYE TIM G [address] [place] [address] DION LAWSON Unavailable [phone] Care Team Providers Name Role Phone SHARPLESS Primary Care Physician Unavailable FERNANDEZ CAMPBELL Attending Clinician Unavailable Corina HERNANDEZ, Chelsie Attending Clinician Unavailable FAROOQ AVILEZ Attending Clinician Unavailable Link Ruth Attending Clinician Fatmata VELASCO, Farooq Attending Clinician Timothy VELASCO, Dae Attending Clinician CIARA RAMIREZ Attending Clinician Unavailable Vicki VELASCO, Ciara Ash Attending Clinician ENZO Attending Clinician Unavailable MITCHELL JACOBS Attending Clinician Unavailable Miladys KISERP, Cabrera Attending Clinician Sirisha VELASCO, Marnie Attending Clinician Arlene VELASCO, Mitchell Attending Clinician Link GERMAN Attending Clinician Unavailable ROSA RICE Attending Clinician Unavailable Krystal VISITOR SERVICES TECHNICIAN, Rosa Gunderson Attending Clinician Lisa Schulte DO Attending Clinician John James DO Attending Clinician Mana MERCHANDISE FLOW TEAM MEMBER, Antonio Helton Attending Clinician Aziza VELASCO, Jeff Gavin Attending Clinician [phone] Macarena VELASCO, Olivia Khan Attending Clinician [phone] Rosa Llamas Attending Clinician Unavailable MANUELA NEELY Attending Clinician Unavailable Caryn PAC, Ne S Attending Clinician Viral Olivares MD Attending Clinician Chin VELASCO, Manuela Leonard Attending Clinician [phone] Tabby Atkins RN Attending Clinician Jessica Rutledge Attending Clinician TABBY MOODY Attending Clinician Unavailable Marilny Torres Attending Clinician Akil MERCHANDISE FLOW TEAM MEMBER, Attending Clinician Sobia VELASCO, José Miguel Simms Attending Clinician Gianluca Aburto MD Attending Clinician Doctor Unassigned, Concepcion Attending Clinician Unavailable Bella VELASCO, Janak Attending Clinician Alvino VELASCO, Fernandez Caicedo Attending Clinician JEFF ERVIN Attending Clinician Unavailable KWABENA YEUNG Attending Clinician Unavailable Gamal VELASCO, Kwabena Attending Clinician Ambeaux Attending Clinician Unavailable Cherie Finley Attending Clinician Jacki Romero Attending Clinician Beck Saavedra Attending Clinician CICI MCCRARY Attending Clinician Unavailable GIANLUCA ABURTO Admitting Clinician Unavailable DAE MCGINNIS Admitting Clinician Unavailable Dae Mcginnsi MD Admitting Clinician CIARA RAMIREZ Admitting Clinician Unavailable ENZO Admitting Clinician Unavailable MITCHELL JACOBS Admitting Clinician Unavailable Mitchell Jacobs MD Admitting Clinician Link GERMAN Admitting Clinician Unavailable ROSA RICE Admitting Clinician Unavailable Macarena VELASCO, Olivia Khan Admitting Clinician [phone] Rosa Llamas Admitting Clinician Unavailable NE RUBIN Admitting Clinician Unavailable Gianluca Aburto MD Admitting Clinician JEFF ERVIN Admitting Clinician Unavailable Jeff Ervin MD Admitting Clinician [phone] William Admitting Clinician Unavailable Beck Saavedra Admitting Clinician LILIA MELTON Admitting Clinician Unavail able Payers Payer Name Policy Type Policy Number Effective Date Expiration Date S andrés [employer] [place] [id number] 2020 WOMEN 00:00:00 MEDICAID SSI PENDING 2020 PENDING 00:00:00 [facility] [id number] 2019 00:00:00 [facility] [id number] 2014 CHOICE MEDICAID 00:00:00 PFAP EMERGENCY [id number] 2016 ADMIT 00:00:00 LO [id number] TANA [id number] 2019-05-20 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 00:00:00 00:00:00 Problems Condition Condition Condition Status Onset Resolution Last Treating Co mments Source Name Details Category Date Date Treatment Clinician Date Persistent Persistent Disease Active U nivers atrial atrial 5-09 ity of fibrill[place] fibrill[place] Elevated Elevated Disease Active Unive rs brain brain 5-09 ity of natriureti natriureti 00:[place] c peptide c peptide 00 Medi carol (BNP) (BNP) Branch level level Paroxysmal Paroxysmal Disease Active U nivers atrial atrial 5-08 ity of fibrillati fibrillati 00:00: [place] [facility] [place] Vaginal Vaginal Disease Active Univers bleeding bleeding 7-15 ity of 00:00: [place] 00 Medical Branch Chronic Chronic Disease Active Univers diastolic diastolic 7-15 ity of congestive congestive 00:00: [place] heart heart 00 Medical failure failure Branch Type 2 Type 2 Disease Active Univers diabetes diabetes 7-15 ity of mellitus mellitus 00:00: [place] without without 00 Medical complicati complicati Br anch on, on, without without long-term long-term current current use of use of insulin insulin Family Family Disease Active Univers history of history of 7-15 it y of coronary coronary 00:00: [place] artery artery 00 Medical disease disease Branch Primary Primary Disease Active Univers hypertensi hypertensi 7-15 it y of on on 00:00: [place] 00 Medical Branch Chest Chest Disease Active Univers pain, pain, 7-14 ity of unspecifie unspecifie 00:00: [place] d type d type 00 Medical Branch Atypical Atypical Disease Active Unive rs chest pain chest pain 7-14 it y of 00:00: [place] 00 Medical Branch CHF CHF Disease Active Univers (congestiv (congestiv 5-06 it y of e heart e heart 00:00: [place] failure), failure), 00 Medi carol NYHA class NYHA class Br anch III, acute III, acute on on chronic, chronic, diastolic diastolic Saddle Saddle Disease Active Univers embolus of embolus of 10-19 it y of pulmonary pulmonary 00:00[place] artery artery 00 Medical Branch Pulmonary Pulmonary Disease Active Uni vers embolism embolism 10-19 ity of 00:00: [place] 00 Medical Branch Morbid Morbid Disease Active Univers obesity obesity 5-25 ity of with body with body 00:00[place] mass index mass index 00 Me dical of 50 or of 50 or Branch higher higher Chest pain Chest pain Disease Active U nivers 5-25 ity of 00:00: [place] 00 Medical Branch HEADACHE HEADACHE Diagnosis Active 2018-08-31 [facility] AND CHEST AND CHEST 08-22 22:01:00 l PAIN PAIN 00:00: [place] Active 00 08/22/2018 [facility] CHEST PAIN CHEST Diagnosis Active 2018-08-23 [facility] PAIN 08-17 12:05:00 l Active 00:00: [place] 08/17/2018 00 [facility] CP CP Active Diagnosis Active 2018-08-23 Memoria 08-12 12:05:00 l 9 MH 00:00: [place] 00 FEVER SORE FEVER Diagnosis Active 2018-07-29 [facility] THROAT SORE - 23:13:00 l THROAT 00:00: [place] Active 00 07/29/2018 [facility] ACUTE ACUTE Diagnosis Active 2018-08-01 Mem oria TONSILLITI TONSILLITI 5-10 10:19:00 l S, ACUTE S, ACUTE 00:00: Jorge wright CHEST PAIN CHEST PAIN 00 Active 07/29/2018 [facility] Hyperlipid Hyperlipid Disease Recurre [facility] Morbid Morbid Disease Recurre [facility] obesity obesity nce 7[facility]15 [facility] due to due to 00:00: Medical excess excess 00 Center calories calories Hypertensi Hypertensi Disease Recurre [facility] 00:[facility] Center Acute Acute Disease Active [facility] right right [facility] flank pain flank pain 00:00: Me dical 00 Center Ureteropel Ureteropel Disease Active [facility] paulino paulino 7[facility]14 [facility] junction junction 00:00: Medica l (UPJ) (UPJ) 00 Center obstructio obstructio n n 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 Joreg n (disorder) (disorder) Resolved Problem 08/27/2018 [facility] CHEST CHEST Diagnosis Active 2018-08-01 Mem oria PAIN, PAIN, 10:19:00 l UNSPECIFIE UNSPECIFIE He rmann D D Active [facility] ACUTE ACUTE Diagnosis Active 2018-08-01 Mem oria TONSILLITI TONSILLITI 10:19:00 l Fareed Guerrier Hermann UNSPECIFIE UNSPECIFIE D D Active [facility] HEADACHE HEADACHE Diagnosis Active 2018-08-31 Memoria Active 22:01:00 l Ambreen Yañez History of Past Illness Condition Condition Condition Status Onset Resolution Last Treating Co mments Source Name Details Category Date Date Treatment Clinician Date Chest Chest Problem 2018-08-20 2018-08-20 [facility] pain, pain, 08-18 23:48:49 23:48:49 l unspecifie unspecifie 17:00: He rmann d d 00 08/18/2018 08/20/2018 [facility] Pneumonia, Pneumonia Problem 2018-08-20 2018-08-20 [facility] unspecifie , 08-18 23:48:49 23:48:49 l d organism unspecifie 17:00: He rmann d organism 00 08/18/2018 08/20/2018 [facility] Diarrhea, Diarrhea, Problem 2018-2018-08-20 2018-08-20 [facility] unspecifie unspecifie 08-18 23:48:49 23:48:49 l d d 17:00: [place] 08/18/2018 00 08/20/2018 [facility] Nontoxic Nontoxic Problem 2018-08-14 2018-08-14 Memoria single single 08-12 23:33:07 23:33:07 l thyroid thyroid 17:00: Otil[place] nodule nodule 00 08/12/2018 08/14/2018 [facility] Esophagiti Esophagit Problem 2018-08-14 2018-08-14 Viola s, is, 08-12 23:33:07 23:33:07 l unspecifie unspecifie 17:00: He rmann d d 08/12/2018 08/14/2018 [facility] Allergies, Adverse Reactions, Alerts Allergy Allergy Status Severity Reaction(s) Onset Inactive Treating Comm ents Source Name Type Date Date Clinician metformi DA Active U DIZZINESS, [facility] n BLURRED 3-12 [place] VISION, 00:00: d SWEATING, 00 Medical DIARRHEA Center metformi DA Active U [facility] n 3-12 [place] 00:[facility]: d 00 [facility] METFORMI DRUG Active Diarrhea 2019-0 Univer s N INGREDI 915 ity of 00:00: [place] 00 Medical Branch Metformi Propensi Active Diarrhea 2019-0 Univ ers n ty to 15 ity of adverse 00:00: [place] reaction 00 Medical s Branch LOSARTAN DRUG Active Dizziness 2019-0 Unive rs INGREDI 12-03 ity of 00:00: [place] 00 Medical Branch Losartan Propensi Active Dizziness 2019-0 Uni vers ty to 914 ity of adverse 00:00: [place] reaction 00 Medical s Branch No Known DA Active U [facility] Allergie 6-06 [place] [facility] 00:00: d 00 Medical University No Known DA Active U [facility] Allergie 606 [place] [facility] 00:00: d 00 [facility] Losartan Propensi Active Dizzy and [facility] ty to [facility] adverse 00:00: Medical reaction 00 [facility] LOSARTAN Allergy Active [facility] 714 00:00: 00 MAGNESIU DRUG Active Hives Univers M INGREDI 219 ity of 00:00: [place] 00 Medical Branch Magnesiu Propensi Active Hives Univer s m ty to 2-19 ity of adverse 00:00: [place] reaction 00 Medical s Branch NO KNOWN Drug Active Univers ALLERGIE Class ity of S [facility] Social History Social Habit Start Date Stop Date Quantity Comments Source History SDOH [facility] Alcohol Frequency Medical Center History SDOH [facility] Alcohol Std Drinks Medica l Center History SDOH [facility] Alcohol Binge Medical Zoila ter History SDOH Social Unive rsity of Connections [facility] Branch History SDOH Social Unive rsity of Connections Gnosticism [place] [facility] History SDOH Social Unive rsity of Connections [place] [facility] Membership Branch History SDOH Social Unive rsity of Connections [place] [facility] Meetings Branch History of tobacco Passive smoker Un iversity of use [place] [facility] History SDOH Social 2022-07-28 2022-07-28 5 Unive rsity of Connections Phone 00:00:00 00:00:00 [place] M edical Branch History SDOH Social 2022-07-28 2022-07-28 7 Unive rsity of Connections Living 00:00:00 00:00:00 [place] [facility] History SDOH 2022-07-28 2022-07-28 0 University o f Physical Activity 00:00:00 00:00:00 [place] M edical DPW Branch History SDWI 2022-07-28 2022-07-28 0 University o f Physical Activity 00:00:00 00:00:00 [place] M edical MPS Branch History SDWI 2022-07-28 2022-07-28 2 University o f Housing Unable to 00:00:00 00:00:00 [place] M edical Pay Branch History SDWI 2022-07-28 2022-07-28 1 University o f Housing Places 00:00:00 00:00:00 [place] Medi carol Lived Branch History SDWI 2022-07-28 2022-07-28 2 University o f Housing Homeless 00:00:00 00:00:00 [place] Me dical Last Year Branch History SDWI 2022-07-28 2022-07-28 5 University o f Financial 00:00:00 00:00:00 [place] [facility] History SDWI Food 2022-07-28 2022-07-28 1 Univers ity of Worry 00:00:00 00:00:00 [place] [facility] History SDWI Food 2022-07-28 2022-07-28 1 Univers ity of Scarcity 00:00:00 00:00:00 [place] [facility] History SDOH 2022-07-28 2022-07-28 2 University o f Transport Med 00:00:00 00:00:00 [place] Medic al Branch History SDOH 2022-07-28 2022-07-28 2 University o f Transport Non-Med 00:00:00 00:00:00 [place] M edical Branch Exposure to 2022-07-17 2022-07-27 Not sure University of SARS-CoV-2 (event) 00:00:00 18:04:00 [facility] Education 2022-07-27 2022-07-27 13 University 00:00:00 00:00:00 [facility] Tobacco use and 2022-07-27 2022-07-27 User of Universit y of exposure 00:00:00 00:00:00 smokeless [facility] Cigarette 2022-07-27 2022-07-27 University of pack-years 00:00:00 00:00:00 [facility] Cigarettes smoked 2019-12-26 2019-12-26 Univers ity of current (pack per 00:00:00 00:00:00 [facility] ) - Reported [place] Alcohol intake 2019-12-24 2019-12-24 [facility]00 of alcohol [facility] (finding) Social History 2018-07-30 2018-07-30 [facility] 10:57:34 10:57:34 Tobacco Comment 2016-10-02 2016-10-02 "stress smoker" [facility] 00:00:00 00:00:00 [facility] Alcohol Comment 2016-10-02 2016-10-[address] [facility] 00:00:00 00:00:00 [facility] Sex Ass[birth year] At [birth year] [facility] ke 00:00:00 00:00:00 [facility] Smoking Status Start Date Stop Date Source Ex-smoker 2022-07-27 00:00:00 2022-07-27 00:00:00 Universi ty of [facility] Current every day 2020-07-25 00:00:00 [facility] smoker [facility] Light tobacco smoker 2016-10-02 00:00:00 [facility] Medications Ordered Filled Start Stop Current Ordering Indication Dosage Frequency Signature Comments Components Source Medication Medication Date Date Medication? Clinician (SIG) Name Name metoprolol Yes 25mg 25 mg, Unive rs succinate 5-10 Oral, QHS, ity of XL (TOPROL 02:00: First dose [place] XL) tablet 00 on Tue Medical 25 mg 07/28/22 at [place] 2100, Until Discontinu ed, Routine atorvastati Yes 40mg 40 mg, Univ ers n (LIPITOR) 5-10 Oral, QHS, it y of tablet 40 02:00: First dose [place] mg 00 on Wed Medical 07/28/22 at Branch 2100, Until Discontinu ed, Routine sulfur 2022-0 2022- No [id number] 5mL 5 mL, Univ ers hexafluorid 07-28 05-09 Intravenou i ty of e microsphr 20:30: 20:30 s, ONCE, 1 [place] (LUMASON) 00 :00 dose, On Medica l injection Wed07/28/22 Br anch mL at 1530, Routine
meteorology faculty member approving Restricted medication : GAMALKWABENA gabapentin 2022-0 Yes 600mg Take 6 Univ ers 100 mg 5-09 capsules ity of capsule 18:19: by mouth [place] [address] in the Medical morning Branch and 6 capsules at noon and 6 capsules in the evening. traZODone 2022-0 Yes 50mg Take 1 Univer s 50 mg 5-09 tablet by ity of tablet 18:19: mouth at [place] [address] bedtime. Medical Branch atorvastati 2022-0 Yes 40mg Take 1 Univ ers n 40 mg 5-09 tablet by ity of tablet 18:19: mouth at [place] [address] bedtime. Medical Branch dapaglifloz 2022-0 Yes 10mg Take 1 Univ ers in 5-09 tablet by ity of (FARXIGA) 18:19: mouth in [facility] 10 mg 24 the Medical tablet morning. Branch SITagliptin 2022-0 Yes 100mg Take 1 Uni vers 100 mg 5-09 tablet by ity of tablet 18:19: mouth in [place] [address] the Medical morning. Branch glipiZIDE 2022-0 Yes 10mg Take 1 Univer s XL 10 mg 24 5-09 tablet by ity of hr tablet 18:19: mouth in [facility] 24 the Medical morning Branch and 1 tablet in the evening. hydrOXYzine 3-0 Yes 50mg Take 1 Univ ers 50 mg 5-09 tablet by ity of tablet 18:19: mouth 3 [place] 24 (three) Medical times Branch daily as needed for Anxiety. amLODIPine 2022-0 Yes 10mg Take 1 Unive rs 10 mg 5-09 tablet by ity of tablet 18:19: mouth in [place] [address] the Medical morning. Branch metoprolol 2022-0 Yes 50mg Take 1 Unive rs succinate 5-09 tablet by ity o f XL 50 mg 24 18:19: mouth in [place] hr tablet 24 the Medical morning. Branch ergocalcife 2022-0 Yes 5000[iU Take 5,000 Univers rol, 5- ]/d Int'l ity of vitamin D2, 18:19: Units/day [place] (VITAMIN D 24 by mouth. Medi carol ORAL) Branch semaglutide 2022-0 Yes .5mg inject 0.5 Univers (OZEMPIC) 5-09 mg under ity of 0.25 mg or 18:19: the skin Jorge as 0.5 mg(2 24 weekly. Medical mg/1.5 mL) Next dose Bran ch PnIj due Wednesday07/28/22 spironolact 2022-0 Yes 1{tbl} Take 1 Un rosanna one-hydroch 5-09 tablet by ity of lorothiazid 18:19: mouth in [place] 25-25 mg 24 the Medical per tablet morning. Bran h gabapentin 2022-0 Yes 600mg Take 6 Univ ers 100 mg 5-09 capsules ity of capsule 18:19: by mouth [place] 24 in the Medical morning Branch and 6 capsules at noon and 6 capsules in the evening. traZODone 2022-0 Yes 50mg Take 1 Univer s 50 mg 5-09 tablet by ity of tablet 18:19: mouth at [place] 24 bedtime. Medical Branch atorvastati 2022-0 Yes 40mg Take 1 Univ ers n 40 mg 5-09 tablet by ity of tablet 18:19: mouth at [place] 24 bedtime. Medical Branch dapaglifloz 2022-0 Yes 10mg Take 1 Univ ers in 5-09 tablet by ity of (FARXIGA) 18:19: mouth in [place] 10 mg 24 the Medical tablet morning. Branch SITagliptin 2022-0 Yes 100mg Take 1 Uni vers 100 mg 5-09 tablet by ity of tablet 18:19: mouth in [place] 24 the Medical morning. Branch glipiZIDE 3-0 Yes 10mg Take 1 Univer s XL 10 mg 24 5-09 tablet by ity of hr tablet 18:19: mouth in [place] 24 the Medical morning Branch and 1 tablet in the evening. hydrOXYzine 3-0 Yes 50mg Take 1 Univ ers 50 mg 5-09 tablet by ity of tablet 18:19: mouth 3 [place] 24 (three) Medical times Branch daily as needed for Anxiety. amLODIPine 0 Yes 10mg Take 1 Unive rs 10 mg 5-09 tablet by ity of tablet 18:19: mouth in [place] 24 the Medical morning. Branch metoprolol 0 Yes 50mg Take 1 Unive rs succinate 5-09 tablet by ity o f XL 50 mg 24 18:19: mouth in [place] hr tablet 24 the Medical morning. Branch ergocalcife Yes 5000[iU Take 5,000 Univers rol, 07-28 ]/d Int'l ity of vitamin D2, 18:19: Units/day [place] (VITAMIN D 24 by mouth. Medi carol ORAL) Branch semaglutide Yes .5mg inject 0.5 Univers (OZEMPIC) 5-09 mg under ity of 0.25 mg or 18:19: the skin [place] as 0.5 mg(2 24 weekly. Medical mg/1.5 mL) Next dose Bran ch PnIj due Wednesday07/28/22 spironolact Yes 1{tbl} Take 1 Un rosanna one-hydroch 5- tablet by ity of lorothiazid 18:19: mouth in [place] 25-25 mg 24 the Medical per tablet morning. Branc h hydroCHLORO Yes 25mg 25 mg, Univ ers thiazide 5-09 Oral, ity of (ESIDRIX) 14:00: DAILY, [place] tablet 25 00 First dose Medi carol mg on Wed07/28/22 at 0900, Until Discontinu ed, Routine spironolact Yes 25mg 25 mg, Univ ers one 5-09 Oral, ity of (ALDACTONE) 14:00: DAILY, [place] tablet 25 00 First dose Medi carol mg on Wed07/28/22 at 0900, Until Discontinu ed, Routine metoprolol Yes 50mg 50 mg, Unive rs succinate 5- Oral, ity of XL (TOPROL 14:00: DAILY, [place] XL) tablet 00 First dose Med ical 50 mg on Wed07/28/22 at 0900, Until Discontinu ed, Routine dapaglifloz 2023-0 Yes 10mg 10 mg, Univ ers in 07-28 Oral, ity of (FARXIGA) 14:00: DAILY, [place] tablet 10 00 First dose Medi carol mg on Wed07/28/22 at 0900, Until Discontinu ed, Routine
Is this a home medication ? Yes
Has this patient brought their own medication ? No
Phar melvin will dispense the medication from inpatient. Pharmacy will dispense the medication from inpatient.
Inpati ent ordering of this medication is not allowed unless the patient is maintained on this medication at home, and home supply is unavailabl e. Does this order meet the criteria for inpatient ordering? Yes amLODIPine 2022-0 Yes 10mg 10 mg, Unive rs (NORVASC) 07-28 Oral, ity of tablet 10 14:00: DAILY, [place] mg 00 First dose Medical on 07/28/22 at 0900, Until Discontinu ed, Routine glipiZIDE 0 Yes 10mg 10 mg, Univer s XL 07-28 Oral, BID, ity of (GLUCOTROL 13:00: First dose [place] XL) tablet 00 on Wed [facility] 10 mg 07/28/22 at Branch 0800, Until Discontinu ed, Routine enoxaparin 2022-0 Yes 1mg/kg 210 mg Uni vers (LOVENOX) 07-28 (rounded ity of injection 13:00: from 206.5 [place] 210 mg 00 mg = 1 Medical mg/kg Branch ?206.5 kg), Subcutaneo us, Q12H, First dose on Wed07/28/22 at 0800, Until Discontinu ed, Routine Sliding 2022-0 Yes Subcutaneo Univ ers Scale 07-28 us, AC+HS, ity of Insulin-Reg 12:30: First dose [place] ular 00 on [facility] 07/28/22 at Branch 0730, Until Discontinu ed, Routine ketorolac 2022-0 Yes 15mg 15 mg, Univer s (TORADOL) 07-28 Slow IV ity of injection 05:56: Push, [place] 15 mg 54 Q6HPRN, Medical Starting Branch on Wed07/28/22 at 0056, Until Discontinu ed, Routine, Pain (scale 7-10) traZODone 0 Yes 50mg 50 mg, Univer s (DESYREL) -09 Oral, QHS, ity of tablet 50 05:15: First dose [place] mg 00 on [facility] 07/28/22 at Branch 0015, Until Discontinu ed, Routine gabapentin 0 Yes 600mg 600 mg, Uni vers (NEURONTIN) 07-28 Oral, TID, it y of capsule 600 05:15: First dose [place] mg 00 on [facility] 07/28/22 at Branch 0015, Until Discontinu ed, Routine hydrOXYzine Yes 50mg 50 mg, Univ ers (ATARAX) 07-28 Oral, ity of tablet 50 05:11: TIDPRN, [place] mg 30 Starting Medical on [facility] 07/28/22 at 0011, Until Discontinu ed, Routine, Anxiety glucagon Yes 1mg 1 mg, Univers (GLUCAGEN 07-28 Intramuscu ity of DIAGNOSTIC 02:20: lar, PRN, [place] KIT) 43 Starting Medical injection 1 on [place] [facility] at 0, Until Discontinu ed, MADDIE, Blood Glucose < or = 70 mg/dL and patient is NPO, unable to swallow or has mental changes. dextrose 50 0 Yes 25mL 25 mL, Univ ers % in water 07-28 Slow IV ity of (D50W) 02:20: Push, PRN, [place] injection 43 Starting Medica l 25 mL on Wed [place] 07/27/22 at 2119, Until Discontinu ed, MADDIE, Blood Glucose < or = 70 mg/dL and patient is NPO, unable to swallow or has mental status changes. ondansetron 0 Yes 4mg 4 mg, Slow Univers (ZOFRAN 07-28 IV Push, ity of (PF)) 02:20: Q6HPRN, [place] injection 4 34 Starting Medi carol mg on Wed [place] 07/27/22 at 2119, Until Discontinu ed, Routine, Nausea and Vomiting (N/V) traMADoL 2022-0 2022- Yes 50mg 50 mg, Univer s (ULTRAM) 07-28 05-11 Oral, ity of tablet 50 02:20: 02:19 Q8HPRN, [place] mg 31 :31 Starting Medical on Wed Branch 07/27/22 at 2119, Until 07/29/22 at 2118, Routine, Pain (scale 4-6) acetaminoph Yes 650mg 650 mg, Un rosanna en 5-09 Oral, ity of (TYLENOL) 02:20: Q6HPRN, [place] tablet 650 28 Starting Medic al mg on Wed07/27/22 at 2119, Until Discontinu ed, Routine, Pain (scale 1-3) HEPARIN 2022- No 4000U 4,000 Univers SODIUM 07-28 05-09 Units, IV ity of (PORCINE) 01:30: 01:52 Push, [place] 1,000 00 :00 ONCE, 1 Medical UNIT/ML dose, On Branch BOLUS ACS Wed07/27/22 ORDER SET at 2030, MADDIE heparin 2022- No 0U/h 0-3,200 Univer s 25,000 07-28 05-09 Units/hr ity of Units/250 01:27: 03:54 (0-32 [place] mL 39 :07 mL/hr), IV Medical (Premixed Infusion, Branc h Bag) in TITRATE, 0.45 % NS Parameters in Admin. Instr., Starting on Wed07/27/22 at 2026
In itiate dosing:&nb sp; & nbsp;&nbsp ; -Patient 83 kg or under: 1,000 Units/hr (Calculate d dose at 12 units/kg/h r) &n bsp; &nbs p; -Patient over 83 k,000 units/hr&n bsp;DO NOT Exceed the MAXIMUM 1,000 units/hr for initiation of heparin drip.&nbsp ; CAU TION - If LMWH given in ER, AVOID bolus and start next dose/drip 12 hrs after ER dosage.&nb sp; M ust program rate using programmab le infusion pump.&nbsp ; Lois ck with the ordering provider first prior to any administra tion should the patient be on existing/a dditional anticoagul ant therapy.&n bsp; Range, Dosing and Testing&nb sp; - aPTT < 40: & nbsp;Bolus 3000 units, increase rate 100 units/hr.& nbsp;- aPTT 40-49:&nbs p; In crease rate 50 units/hr. - aPTT 50-70:&nbs p; NO CHANGE.&nb sp;- aPTT 71-85:&nbs p; De crease rate 50 units/hr.& amp;nbsp;- aPTT 86-100:&nb sp; H old 30 minutes, decrease rate 100 units/hr.& nbsp;- aPTT 101-150:&n bsp; Hold 60 minutes, decrease rate 150 units/hr.& nbsp;- aPTT > 150: Hold 60 minutes, decrease rate 300 units/hr.& nbsp;&nbsp ;Check aPTT 6 hours after initiation , then Q6H after every change, aPTT Q12H once therapeuti c levels are reached.&a mp;nbsp;&n bsp;DO NOT ADJUST INITIAL BOLUS OR INITIAL INFUSION RATE.
iopamidol 2022- No [id number] 100mL 100 mL, Univers (ISOVUE 07-28 Intravenou ity o f 370-500 mL) 00:30: 00:30 s, ONCE, 1 [place] injection 00 :00 dose, On Medica l 100 mL 07/27/22 Branch at 1930, Routine lancets Yes [id number] Check Univ ers (TECHLITE 07-28 blood ity of LANCETS) 28 00:00: glucose 3 [place] gauge Misc 00 time(s) a Medi day. Branch lancets Yes [id number] Check Univ ers (TECHLITE 07-28 blood ity of LANCETS) 28 00:00: glucose 3 [place] gauge Misc 00 time(s) a Medi day. Branch apixaban 2022- Yes 1358 5mg Take 1 Univer s (ELIQUIS) 5 07-28 tablet by it y of mg tablet 00:00: 04:59 mouth in [place] 00 :00 the Medical morning Branch and 1 tablet in the evening. Do all this for 30 days. Indication s: atrial fibrillati on apixaban 2022- Yes 1358 5mg Take 1 Univer s (ELIQUIS) 5 07-28 tablet by it y of mg tablet 00:00: 04:59 mouth in [place] 00 :00 the Medical morning Branch and 1 tablet in the evening. Do all this for 30 days. Indication s: atrial fibrillati on aspirin Yes 324mg 324 mg, Univer s chewable 03-27 Oral, ity of tablet 324 15:00: DAILY, [place] mg 00 First dose Medical on Wed Branch 03/27/22 at 0900, Until Discontinu ed, Routine levoFLOXaci 2022- No 500mg 500 mg, IV Univers n in D5W 03-27 Piggyback, ity of (LEVAQUIN) 02:45: 04:08 ONCE, 1 [place] 500 mg/100 00 :00 dose, On Medic al mL [facility] 03/26/22 Branch Piggyback at 2044, 500 mg Administer over 60 Minutes, 100 mL
R chase for Anti-Infec tive: Documented Infection< br>Documen kenroy Infection Site: Respirator y
Durat ion of Therapy: Other (see Comments) iopamidol 2022- No [id number] 84mL 84 mL, U nivers (ISOVUE 03-27 Intravenou ity o f 370-500 mL) 02:45: 01:33 s, ONCE, 1 [place] injection 00 :00 dose, On Medica l 84 mL [facility] 03/26/22 Branch at 2044, Routine NaCl 0.9% 2022- No 1000mL at 999 Uni vers (NS) bolus 03-27 mL/hr, ity of infusion 02:00: 03:10 1,000 mL, [place] 1,000 mL 00 :00 IV Medical Infusion, Branch ONCE, 1 dose, On [place] 03/26/22 at 1999, STAT ondansetron 2022- No 4mg 4 mg, Slow Univers (ZOFRAN 03-27 IV Push, ity of (PF)) 02:00: 02:00 ONCE, 1 [place] injection 4 00 :00 dose, On Medi carol mg [place] 03/26/22 Branch at 2000, MADDIE morpHINE (4 2022- No 4mg 4 mg, Slow Univers mg/mL) 03-27 IV Push, ity of injection 4 02:00: 02:01 ONCE, 1 [place] mg 00 :00 dose, On Medical [place] 03/26/22 Branch at 2000, STAT furosemide 2022- No 40mg 40 mg, IV U nivers (LASIX) 03-27 Push, ity of injection 00:00: 23:55 ONCE, 1 [place] 40 mg 00 :00 dose, On Medical [facility] 03/26/22 Branch at 1800, MADDIE ipratropium 2022- No 3mL 3 mL, Univ ers -albuteroL 03-26 Inhalation it y of (DUONEB) 23:45: 23:49 , ONCE, 1 [place] 0.5 mg-3 00 :00 dose, On Medical mg(2.5 mg [facility] 03/26/22 Bran ch base)/3 mL at 1745, nebulizer MADDIE solution 3 mL gabapentin Yes 600mg Take 600 Un rosanna 100 mg 1-05 mg by ity of capsule 20:42: mouth 3 [place] [address] (three) Medical times Branch daily. traZODone Yes 50mg Take 50 mg Un rosanna 50 mg 1-05 by mouth ity of tablet 20:42: at [place] [address] bedtime. Medical Branch atorvastati 0 Yes 40mg Take 40 mg Univers n 40 mg 1-05 by mouth ity of tablet 20:42: at [place] [address] bedtime. Medical Branch dapaglifloz 0 Yes 10mg Take 10 mg Univers in -05 by mouth ity of (FARXIGA) 20:42: daily. [place] 10 [facility] Medical tablet Branch SITagliptin 0 Yes 100mg Take 100 U nivers 100 mg 1-05 mg by ity of tablet 20:42: mouth in [place] [address] the Medical morning. Branch glipiZIDE 0 Yes 10mg Take 10 mg Un rosanna XL 10 mg 24 -05 by mouth ity of hr tablet 20:42: in the [place] [address] morning Medical and 10 mg Branch in the evening. albuterol Yes [id number] 2{puff} Inhale 2 Univers 90 1-05 Puffs ity of mcg/actuati 00:00: every 4 [place] on inhaler 00 (four) Medical hours as Branch needed for Wheezing or Shortness of Breath. acetaminoph 0 Yes [id number] 500mg Take 1 Univers en (TYLENOL 1-05 tablet by ity of EXTRA 00:00: mouth [place] STRENGTH) 00 every 6 Medical 500 mg (six) Branch tablet hours as needed for Pain for up to 20 doses. acetaminoph 0 Yes [id number] 500mg Take 1 Univers en (TYLENOL 1-05 tablet by ity of EXTRA 00:00: mouth [place] STRENGTH) 00 every 6 Medical 500 mg (six) Branch tablet hours as needed for Pain for up to 20 doses. acetaminoph Yes [id number] 500mg Take 1 Univers en (TYLENOL 1-05 tablet by ity of EXTRA 00:00: mouth [place] STRENGTH) 00 every 6 Medical 500 mg (six) Branch tablet hours as needed for Pain for up to 20 doses. albuterol 2022- No [id number] 2{puff} Inhale 2 Univers 90 1-05 05-09 Puffs ity of mcg/actuati 00:00: 00:00 every 4 [place] on inhaler 00 :00 (four) Medical hours as Branch needed for Wheezing or Shortness of Breath. levoFLOXaci 2022- No [id number] 500mg Take 1 Univers n 03-26-13 tablet by ity of (LEVAQUIN) 00:00: 05:59 mouth [place] 500 mg 00 :00 every 24 Medical tablet (twenty-fo Branch ur) hours for 7 days. guaiFENesin 2022- No [id number] 600mg Take 1 Univers (MUCINEX) 03-26-13 tablet by ity of 600 mg 00:00: 05:59 mouth [place] tablet 00 :00 every 12 Medical (twelve) Branch hours for 7 days. atorvastati 0 Yes 40mg Take 40 mg Univers n 40 mg 7-19 by mouth ity of tablet 03:22: at [place] 03 bedtime. Medical Branch dapaglifloz 2022-0 Yes 10mg Take 10 mg Univers in 7-19 by mouth ity of (FARXIGA) 03:22: daily. [place] 10 mg 03 Medical tablet Branch SITagliptin 2021-0 Yes 100mg Take 100 U nivers 100 mg 7-19 mg by ity of tablet 03:22: mouth in [place] 03 the Medical morning. Branch glipiZIDE 0 Yes 10mg Take 10 mg Un rosanna XL 10 mg 24 7-19 by mouth ity of hr tablet 03:22: in the [place] 03 morning Medical and 10 mg Branch in the evening. spironolact 2021- No [id number] 25mg Take 1 Univers one 25 mg 7-18 08-18 tablet by ity of tablet 00:00: 04:59 mouth in [place] 00 :00 the Medical morning Branch for 30 days. spironolact 2021-2021- No [id number] 25mg Take 1 Univers one 25 mg 7-18 08-18 tablet by ity of tablet 00:00: 04:59 mouth in [place] 00 :00 the Medical morning Branch for 30 days. KCL 2021- No 40meq 40 mEq, Univers (KLOR-CON 10-05 07-17 Oral, ity of M20) tablet 16:00: 15:16 ONCE, 1 [place] 40 mEq 00 :00 dose, On Medical Sun Branch 10/05/21 at 1100, Routine gabapentin 2021-0 Yes 600mg Take 600 Un rosanna 100 mg 7-17 mg by ity of capsule 15:23: mouth 3 [place] [address] (three) Medical times Branch daily. traZODone 2021-0 Yes 50mg Take 50 mg Un rosanna 50 mg 7-17 by mouth ity of tablet 15:23: at [place] [address] bedtime. Medical Branch atorvastati 2021-0 Yes 40mg Take 40 mg Univers n 40 mg 7-17 by mouth ity of tablet 15:23: at [place] [address] bedtime. Medical Branch dapaglifloz 0 Yes 10mg Take 10 mg Univers in 7-17 by mouth ity of (FARXIGA) 15:23: daily. [place] 10 mg 37 Medical tablet Branch SITagliptin 2021-0 Yes 100mg Take 100 U nivers 100 mg 7-17 mg by ity of tablet 15:23: mouth in [place] 37 the Medical morning. Branch glipiZIDE Yes 10mg Take 10 mg Un rosanna XL 10 mg 24 17 by mouth ity of hr tablet 15:23: in the [place] [address] morning Medical and 10 mg Branch in the evening. gabapentin 0 Yes 600mg Take 600 Un rosanna 100 mg 7-17 mg by ity of capsule 15:23: mouth 3 [place] 37 (three) Medical times Branch daily. traZODone 0 Yes 50mg Take 50 mg Un rosanna 50 mg -17 by mouth ity of tablet 15:23: at [place] [address] bedtime. Medical Branch apixaban 5 2021- No 5mg Take 5 mg U nivers mg tablet 10-05 by mouth ity o f 13:00: 00:00 in the [place] 47 :00 morning Medical and 5 mg Branch in the evening. hydrOXYzine 2021-2021- No 50mg Take 50 mg Univers 50 mg 10-05 by mouth 3 ity of tablet 13:00: 00:00 (three) [place] 44 :00 times Medical daily as Branch needed for Itching. amLODIPine 2021- No 10mg Take 10 mg Univers 10 mg 10-05 by mouth ity of tablet 13:00: 00:00 in the [place] 44 :00 morning. Medical Branch metoprolol 2021- No 50mg Take 50 mg Univers succinate 10-05 by mouth ity o f XL 50 mg 24 13:00: 00:00 in the [facility] as hr tablet 44 :00 morning. Medica l Branch cyclobenzap Yes 10mg 10 mg, Univ ers rine 10-05 Oral, ity of (FLEXERIL) 02:39: TIDPRN, [place] tablet 10 34 Starting Medica l mg on [facility] Branch 10/04/21 at 2139, Until Discontinu ed, Routine, Muscle Spasms KCL 2021-2021- No 40meq 40 mEq, Univers (KLOR-CON 10-05 Oral, ity of M20) tablet 00:30: 23:33 ONCE, 1 [place] 40 mEq 00 :00 dose, On Medical [facility] Branch 10/04/21 at 1930, Routine magnesium Yes [id number] 400mg Take 400 Univers oxide 420 7-17 mg by ity of mg Tab 00:00: mouth 2 [place] 00 (two) Medical times Branch daily. polyethylen 2022-0 Yes [id number] 17g Take 17 g Univers e glycol 7-17 by mouth ity of 3350 17 00:00: in the [place] gram/dose 00 morning. Medica l powder Branch magnesium 2-0 Yes [id number] 400mg Take 400 Univers oxide 420 7-17 mg by ity of mg Tab 00:00: mouth 2 [place] 00 (two) Medical times Branch daily. polyethylen 2022-0 Yes [id number] 17g Take 17 g Univers e glycol 7-17 by mouth ity of 3350 17 00:00: in the [place] gram/dose 00 morning. Medica l powder Branch magnesium 2-0 Yes [id number] 400mg Take 400 Univers oxide 420 7-17 mg by ity of mg Tab 00:00: mouth 2 [place] [address] (two) Medical times Branch daily. polyethylen 2-0 Yes [id number] 17g Take 17 g Univers e glycol 7-17 by mouth ity of 3350 17 00:00: in the [place] gram/dose 00 morning. Medica l powder Branch magnesium 2021-0 3- No [id number] 400mg Take 400 Univers oxide 420 7-17 05-09 mg by ity of mg Tab 00:00: 00:00 mouth 2 [place] 00 :00 (two) Medical times Branch daily. polyethylen 2021-0 2023- No [id number] 17g Take 17 g Univers e glycol 7-17 05-09 by mouth ity of 3350 17 00:00: 00:00 in the [place] gram/dose 00 :00 morning. Medica l powder Branch metoprolol 2021-0 2- No [id number] 50mg Take 1 Univers tartrate 50 - 08-17 tablet by it y of mg tablet 00:00: 04:59 mouth in [facility] as 00 :00 the Medical morning Branch and 1 tablet in the evening. Do all this for 30 days. apixaban 5 2021-0 2022- No 1358 5mg Take 1 Univ ers mg tablet 10-05 08-17 tablet by ity of 00:00: 04:59 mouth in [place] 00 :00 the Medical morning Branch and 1 tablet in the evening. Do all this for 30 days. Indication s: atrial fibrillati on furosemide 2021- No [id number] 20mg Take 1 Univers 20 mg 10-05- tablet by ity of tablet 00:00: 04:59 mouth in [place] 00 :00 the [facility] for 30 days. metoprolol 2021-2021- No [id number] 50mg Take 1 Univers tartrate 50 10-05 tablet by it y of mg tablet 00:00: 04:59 mouth in [facility] 00 :00 the [facility] and 1 tablet in the evening. Do all this for 30 days. apixaban 5 2021- No 1358 5mg Take 1 Univ ers mg tablet 10-05 tablet by ity of 00:00: 04:59 mouth in [place] 00 :00 the [facility] and 1 tablet in the evening. Do all this for 30 days. Indication s: atrial fibrillati on furosemide 2021- No [id number] 20mg Take 1 Univers 20 mg 10-05 tablet by ity of tablet 00:00: 04:59 mouth in [place] 00 :00 the [facility] for 30 days. spironolact Yes 25mg 25 mg, Univ ers one 716 Oral, ity of (ALDACTONE) 23:30: DAILY, [place] tablet 25 00 First dose Medi carol mg (after Branch last reorder) on 10/04/21 at 1830, Until Discontinu ed, Routine Sliding Yes Subcutaneo Univ ers Scale 7-16 us, Q4H, ity of Insulin - 01:00: First dose [place] Lispro 00 (after Medical (HumaLOG) + last Branch Fsbg modificati Testing on) on 10/03/21 at 2000, Until Discontinu ed, Routine spironolact 2021- No 25mg 25 mg, Uni vers one 10-03-15 Oral, ity of (ALDACTONE) 21:30: 21:54 ONCE, 1 [place] tablet 25 00 :00 dose, On Medica l mg Fri Branch 10/03/21 at 1630, Routine iron 2021- No 200mg 200 mg, IV Unive rs sucrose 10-03 07-20 Infusion, ity of (VENOFER) 20:30: 13:59 DAILY, [place] 200 mg in 00 :00 Administer Medi carol NaCl 0.9% over 2.5 Branch (NS) 100 mL Hours, infusion First dose on Wed10/03/21 at 1530, For 5 doses sulfur 2021- No [id number] 5mL 5 mL, Unive rs hexafluorid 10-03 Intravenou i ty of e microsphr 17:15: 17:10 s, ONCE, 1 [place] (LUMASON) 00 :00 dose, On Medica l injection 5 Fri Branch mL 10/03/21 at 1215, Routine
meteorology faculty member approving Restricted medication : GAMAL ALEYDACLAYTONPATITO SITagliptin Yes 100mg 100 mg, Un rosanna (JANUVIA) 10-03 Oral, ity of tablet 100 14:00: DAILY, [place] mg 00 First dose Medical on Fri Branch 10/03/21 at 0900, Until Discontinu ed, Routine magnesium Yes 400mg 400 mg, Univ ers oxide 10-03 Oral, BID, ity of (MAG-OX 13:00: First dose [place] 400) tablet 00 on Fri Medica l 400 mg 10/03/21 at Branch 0800, Until Discontinu ed, Routine Sliding 2021- No Subcutaneo Uni vers Scale 10-0316 us, TID ity of Insulin - 13:00: 00:24 MEALS, [place] Lispro 00 :36 First dose Medical (HumaLOG) + (after Branch Fsbg last Testing modificati on) on 10/03/21 at 0800, Until Discontinu ed, Routine KCL 2021- No 60meq 60 mEq, Univers (KLOR-CON 10-03 Oral, ity of M20) tablet 13:00: 14:12 ONCE, 1 [place] 60 mEq 00 :00 dose, On Medical Fri Branch 10/03/21 at 0800, Routine glipiZIDE Yes 10mg 10 mg, Univer s (GLUCOTROL) 10-03 Oral, ity of tablet 10 12:30: BIDAC, [place] mg 00 First dose Medical on Fri Branch 10/03/21 at 0730, Until Discontinu ed, Routine potassium 2021- No 10meq 10 mEq, IV Univers chloride in 10-03 Piggyback, i ty of water 10 12:00: 16:00 Q1H, 4 [place] mEq/100 mL 00 :00 doses, Medical RTU 10 mEq First dose Bra nch on Wed10/03/21 at 0700, Last dose on Wed10/03/21 at 1000, Administer over 60 Minutes, 100 mL pantoprazol Yes 40mg 40 mg, Univ ers e 10-03 Slow IV ity of (PROTONIX) 11:45: Push, [place] injection 00 Q12H, Medical 40 mg First dose Branch on Wed10/03/21 at 0645, Until Discontinu ed insulin Yes 20U 20 Units, Unive rs glargine 10-03 Subcutaneo ity o f (LANTUS 06:15: us, QHS, [place] U-100) 00 First dose Medical injection (after Branch 20 Units last modificati on) on Wed10/03/21 at 0115, Until Discontinu ed, Routine NaCl 0.9% 2021- No 1000mL at 100 Uni vers (NS) IV 10-03 mL/hr, IV ity of infusion 04:15: 11:36 Infusion, [place] 1,000 mL 00 :46 CONTINUOUS Medic al , Starting Branch on Wed10/02/21 at 2315, Until Wed10/03/21 at 0636, Routine magnesium 2021- No 2g 2 g, IV Univ ers sulfate in 10-03 Piggyback, it y of water 2 04:15: 05:08 Administer [place] gram/50 mL 00 :00 over 60 Medica l (4 %) Minutes, Branch infusion 2 ONCE, 1 g dose, On Wed10/02/21 at 2315, Routine traZODone Yes 50mg 50 mg, Univer s (DESYREL) 10-03 Oral, QHS, ity of tablet 50 03:15: First dose [place] mg 00 on [place] Medical 10/02/21 at Branch 2215, Until Discontinu ed, Routine metoprolol Yes 50mg 50 mg, Unive rs tartrate 10-03 Oral, BID, ity o f (LOPRESSOR) 03:15: First dose [place] tablet 50 00 on [facility] Medical mg 10/02/21 at Branch 2215, Until Discontinu ed, Routine gabapentin Yes 600mg 600 mg, Uni vers (NEURONTIN) 7-15 Oral, TID, it y of capsule 600 03:15: First dose [place] mg 00 on [facility] 10/02/21 at Branch 2215, Until Discontinu ed, Routine apixaban 0 Yes 5mg 5 mg, Univers (ELIQUIS) 715 Oral, BID, ity of tablet 5 mg 03:15: First dose [place] 00 on [facility] 10/02/21 at Branch 2215, Until Discontinu ed, Routine
Indicatio ns: Non-Valvul ar Atrial Fibrillati on furosemide 2021- No 80mg 80 mg, Univ ers (LASIX) 10-03 07-15 Slow IV ity of injection 03:15: 13:58 Push, [place] 80 mg 00 :41 Q12H, Medical First dose Branch on [facility] 10/02/21 at 2215, Until Discontinu ed, Routine morpHINE (2 Yes 2mg 2 mg, Slow Univers mg/mL) 15 IV Push, ity of injection 2 03:10: Q4HPRN, [place] mg 42 Starting Medical on [facility] 10/02/21 at 2210, Until Discontinu ed, Routine, Pain (scale 7-10) sennosides Yes 8.6mg 8.6 mg, Uni vers (SENOKOT) 715 Oral, BID, ity of tablet 8.6 03:00: First dose [place] mg 00 on [facility] 10/02/21 at Branch 2200, Until Discontinu ed, Routine docusate Yes 100mg 100 mg, Unive rs (COLACE) 715 Oral, BID, ity o f capsule 100 03:00: First dose [place] mg 00 on [facility] 10/02/21 at Branch 2200, Until Discontinu ed, Routine Sliding 2021- No Subcutaneo Uni vers Scale 10-03 07-15 us, Q4H, ity of Insulin - 03:00: 11:43 First dose [place] Lispro 00 :16 on [facility] (HumaLOG) + 10/02/21 at Br anch Fsbg 2200, Testing Until Discontinu ed, Routine ondansetron Yes 4mg 4 mg, Slow Univers (ZOFRAN 7-15 IV Push, ity of (PF)) 02:49: Q6HPRN, [place] injection 4 30 Starting Medi carol mg on [place] Branch 10/02/21 at 2149, Until Discontinu ed, Routine, Nausea and Vomiting (N/V) NaCl 0.9% 2021- No 1000mL at 999 Uni vers (NS) bolus 10-03 07-15 mL/hr, ity of infusion 02:45: 01:35 1,000 mL, [place] 1,000 mL 00 :00 IV Medical Infusion, Branch ONCE, 1 dose, On [place] 10/02/21 at 2145, MADDIE dextrose 2021-0 Yes 250mL 250 mL, IV Un rosanna 10% (D10W) 7-15 Infusion, ity of bolus 02:33: PRN - SEE [place] infusion 38 INSTRUCTIO Medic al 250 mL NS, Branch Administer over 60 Minutes, Other, If blood glucose is < or = 70 mg/dL and patient is unable to swallow or has mental status changes, Starting on [place] 10/02/21 at 2133
If blood glucose is < or = 70 mg/dL and patient is unable to swallow or has mental status changes (Give glucagon order if patient needs fluid restrictio n): IF IV access available: Dextrose 10%. 1. 125 mL (? bag) of D10W IV infusion - equivalent to 12.5 g dextrose 2. Blood glucose - draw blood glucose 15 minutes after D10W Administra tion. 3. If blood glucose is < 80 mg/dL, repeat.
glucagon 0 Yes 1mg 1 mg, Univers (GLUCAGEN 7-15 Intramuscu ity of DIAGNOSTIC 02:33: lar, PRN, [place] KIT) 34 Starting Medical injection 1 on [place] Branch mg 10/02/21 at 2133, Until Discontinu ed, MADDIE, Blood Glucose < or = 70 mg/dL and patient is unable to swallow or has mental changes. iopamidol 2021- No [id number] 100mL 100 mL, Univers (ISOVUE 10-03 Intravenou ity o f 370-500 mL) 01:15: 01:15 s, ONCE, 1 [place] injection 00 :00 dose, On Medica l 100 mL [place] Branch 10/02/21 at 2015, Routine HYDROcodone 2021- No 1{tbl} 1 tablet, Univers -acetaminop 10-02 Oral, ity of hen (NORCO 23:45: 22:48 ONCE, 1 [place] 5) 5-325 mg 00 :00 dose, On Medi carol tablet 1 [place] Branch tablet 10/02/21 at 1845, MADDIE NaCl 0.9% 2021- No 500mL at 999 Univ ers (NS) bolus 10-02 mL/hr, 500 it y of infusion 23:00: 00:44 mL, IV [place] 500 mL 00 :00 Infusion, Medical ONCE, 1 Branch dose, On [place] 10/02/21 at 1800, MADDIE insulin 2021- No 10U 10 Units, Univ ers regular 10-02 IV Push, ity of human 23:00: 22:07 ONCE, 1 [place] (HUMULIN R) 00 :00 dose, On Medi carol injection [place] Branch 10 Units 10/02/21 at 1800, Routine ondansetron 2021- No 4mg 4 mg, Slow Univers (ZOFRAN 10-02 IV Push, ity of (PF)) 21:15: 21:12 ONCE, 1 [place] injection 4 00 :00 dose, On Medi carol mg [place] Branch 10/02/21 at 1615, MADDIE nitroglycer 2021- No .4mg 0.4 mg, Un rosanna in 10-02 Sublingual ity of (NITROSTAT) 21:15: 21:12 , ONCE, 1 [place] sublingual 00 :00 dose, On Medic al tablet 0.4 [place] Branch mg 10/02/21 at 1615, MADDIE aspirin 2021- No 325mg 325 mg, Unive rs tablet 325 10-02 Oral, ity of mg 21:15: 21:12 ONCE, 1 [place] 00 :00 dose, On Medical [place] Branch 10/02/21 at 1615, MADDIE venlafaxine 2021- No 225mg Take 225 Univers HCl 10-02-14 mg by ity of (EFFEXOR 15:56: 00:00 mouth [place] ORAL) 38 :00 daily. Medical Branch traMADol 2021- No 50mg Take 50 mg Un rosanna 100 mg 10-02 by mouth 3 ity of capsule 15:56: 00:00 (three) [place] 35 :00 times Medical daily. Branch risperiDONE 2021- No 2mg Take 2 mg Univers 2 mg tablet 10-02 by mouth ity of 15:56: 00:00 at [place] 26 :00 bedtime. Medical Branch apixaban 2021- No 5mg 5 mg, Univers (ELIQUIS) 04-13 Oral, ity of tablet 5 mg 09:15: 09:26 ONCE, 1 [place] 00 :00 dose, On Medical Sun Branch 04/13/21 at 0315, Routine
Indicatio ns: DVT/PE iohexol 2021- No [id number] 100mL 100 mL, U nivers (OMNIPAQUE 04-13 Intravenou it y of 350 09:00: 08:40 s, ONCE, 1 [place] BULK-100 00 :00 dose, On Medical mL) Sun Branch injection 04/13/21 at 100 mL 0300, Routine magnesium 2021- No 2g 2 g, IV Univ ers sulfate in 04-13 Piggyback, it y of water 2 07:45: 09:00 ONCE, 1 [place] gram/50 mL 00 :00 dose, On Medic al (4 %) Sun Branch infusion 2 04/13/21 at g 0145, Routine NaCl 0.9% 2021- No 1000mL at 999 Uni vers (NS) bolus 04-13 mL/hr, ity of infusion 06:45: 08:00 1,000 mL, [place] as 1,000 mL 00 :00 IV Medical Infusion, Branch ONCE, 1 dose, On 04/13/21 at 0045, STAT ketorolac 2021- No 15mg 15 mg, Unive rs (TORADOL) 04-13 Slow IV ity of injection 06:45: 06:01 Push, [place] 15 mg 00 :00 ONCE, 1 Medical dose, On Branch 04/13/21 at 0045, Routine
meteorology faculty member approving Restricted medication : Link GERMAN diphenhydrA 2021- No 25mg 25 mg, Uni vers MINE 04-13 Slow IV ity of (BENADRYL) 06:45: 06:01 Push, [place] injection 00 :00 ONCE, 1 Medical 25 mg dose, On Branch 04/13/21 at 0045, STAT metoclopram 2021- No 10mg 10 mg, Uni vers fariba HCl 04-13 Slow IV ity of (REGLAN) 06:45: 06:02 Push, [place] injection 00 :00 ONCE, 1 Medical 10 mg dose, On Branch 04/13/21 at 0045, MADDIE ondansetron 2021-0 Yes [id number] 4mg Take 1 Univers (ZOFRAN 1-23 tablet by ity of ODT) 4 mg 00:00: mouth [place] disintegrat 00 every 8 Medic al ing tablet (eight) Branch hours as needed for Nausea and Vomiting (N/V). benzonatate 2021-0 Yes [id number] 200mg Take 1 [facility] 200 mg 1-23 capsule by ity of capsule 00:00: mouth 3 [place] 00 (three) Medical times Branch daily as needed for Cough for up to 20 doses. ondansetron 2021-0 Yes [id number] 4mg Take 1 [facility] (ZOFRAN 1-23 tablet by ity of ODT) 4 mg 00:00: mouth [place] disintegrat 00 every 8 Medic al ing tablet (eight) Branch hours as needed for Nausea and Vomiting (N/V). ondansetron 2021-0 Yes [id number] 4mg Take 1 [facility] (ZOFRAN 1-23 tablet by ity of ODT) 4 mg 00:00: mouth [place] disintegrat 00 every 8 Medic al ing tablet (eight) Branch hours as needed for Nausea and Vomiting (N/V). ondansetron 2021-0 Yes [id number] 4mg Take 1 [facility] (ZOFRAN 1-23 tablet by ity of ODT) 4 mg 00:00: mouth [place] disintegrat 00 every 8 Medic al ing tablet (eight) Branch hours as needed for Nausea and Vomiting (N/V). ondansetron No [id number] 4mg Take 1 [facility] (ZOFRAN 04-13 05-09 tablet by ity of ODT) 4 mg 00:00: 00:00 mouth [place] disintegrat 00 :00 every 8 Medic al ing tablet (eight) Branch hours as needed for Nausea and Vomiting (N/V). benzonatate No [id number] 200mg Take 1 [facility] 200 mg 04-1314 capsule by ity of capsule 00:00: 00:00 mouth 3 [place] 00 :00 (three) Medical times Branch daily as needed for Cough for up to 20 doses. NaCl 0.9% 2020-03 No 1000mL at 999 Uni vers (NS) bolus 05-05-14 mL/hr, ity of infusion 00:00: 01:52 1,000 mL, [place] as 1,000 mL 00 :00 IV Medical Infusion, Branch ONCE, 1 dose, On Wed03/03/21 at 1800, MADDIE butorphanol 2020-03 No 1mg 1 mg, IV U nivers (STADOL) 05-05 Push, ity of injection 1 00:00: 23:11 ONCE, 1 [place] mg 00 :00 dose, On Medical Mon Branch 03/03/21 at 1800, Routine ondansetron 2020-03 No 4mg 4 mg, Slow Univers (ZOFRAN 05-05 IV Push, ity of (PF)) 00:00: 23:11 ONCE, 1 [place] injection 4 00 :00 dose, On Medi carol mg Mon Branch 03/03/21 at 1800, MADDIE ketorolac 2020-03 No 30mg 30 mg, Unive rs (TORADOL) 05-05 Slow IV ity of injection 00:00: 23:11 Push, [place] 30 mg 00 :00 ONCE, 1 Medical dose, On Branch [facility] 03/03/21 at 1800, Routine
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 etodolac 2020-03 Yes [id number] 300mg Take 1 Un [place] 300 mg 2-13 capsule by ity of capsule 00:00: mouth 3 [place] 00 (three) Medical times Branch daily with meals as needed for Pain. etodolac 2020-03- No [id number] 300mg Take 1 U nivers 300 mg 2-01 10-17 capsule by ity of capsule 00:00: 00:00 mouth 3 [place] 00 :00 (three) Medical times Branch daily with meals as needed for Pain. maalox:diph 2020-03- No 15mL 15 mL, Uni vers enhydrAMINE 012-31 Oral, ity of :lidocaine 06:00: 05:07 ONCE, 1 [place] as 2 % viscous 00 :00 dose, On Medi carol 1:1:1 Wed Branch ([facility]OUT 12/31/20 [facility]) at 0100, oral Routine suspension 15 mL famotidine 2020-03- No 20mg 20 mg, Univ ers (PEPCID 012-31 Slow IV ity of (PF)) 06:00: 05:14 Push, [place] injection 00 :00 ONCE, 1 Medical 20 mg dose, On Branch e 12/31/20 at 0100, Routine magnesium 2020-03- No 2g 2 g, IV Univ ers sulfate in 012-31 Piggyback, it y of water 2 05:45: 06:34 ONCE, 1 [place] gram/50 mL 00 :00 dose, On Medic al (4 %) Wed Branch infusion 2 12/31/20 g at 0045, Routine ketorolac 2020-03- No 30mg 30 mg, Unive rs (TORADOL) 0- Slow IV ity of injection 04:45: 03:37 Push, [place] 30 mg 00 :00 ONCE, 1 Medical dose, On Branch [facility] 12/30/20 at 2345, MADDIE
[facility] member approving Restricted medication : LISA SCHULTE aspirin 2020-03- No 324mg 324 mg, Unive rs chewable 0-12 10-12 Oral, ity of tablet 324 04:45: 03:37 ONCE, 1 [place] mg 00 :00 dose, On Medical [facility] Branch 12/30/20 at 2345, Routine HYDROcodone 2020- No 1{tbl} 1 tablet, Univers -acetaminop 10-15 Oral, ONCE i ty of hen (NORCO) 02:50: 02:54 NOW, 1 [place] as 10-325 mg 00 :00 dose, Mon Medic al tablet 1 10/14/20 at [facility] h tablet 2200, Routine iopamidol 2020- No [id number] 100mL 100 mL, Univers (ISOVUE 10-15 Intravenou ity o f 370-500 mL) 02:30: 01:19 s, ONCE, 1 [place] injection 00 :00 dose, Mon Medic al 100 mL 10/14/20 at Branch 2130, Routine ondansetron 2020- No 4mg 4 mg, Slow Univers (ZOFRAN 10-15 IV Push, ity of (PF)) 01:34: 01:35 ONCE, 1 [place] injection 4 00 :00 dose, Mon Med ical mg 10/14/20 at Branch 2045, MADDIE morpHINE 2020- No 4mg 4 mg, Slow Un ro[place] injection 4 10-15 IV Push, ity of mg 01:34: 01:35 ONCE, 1 [place] 00 :00 dose, [facility] Medical 10/14/20 at Branch 2045, STAT megestroL 2020- No [id number] 40mg Take 1 [facility] 40 mg 10-14 100 tablet by ity of tablet 00:00: 04:59 mouth 2 [place] 00 :00 (two) Medical times Branch daily Then 1 tablet by mouth daily for 14 days. traMADol Yes 50mg Take 50 mg Uni vers 100 mg -09 by mouth 3 ity of capsule 00:35: (three) [place] 08 times Medical daily. Branch venlafaxine 2020-0 Yes 225mg Take 225 U nivers HCl 5-09 mg by ity of (EFFEXOR 00:35: mouth [place] ORAL) 08 daily. Medical Branch gabapentin 2020-0 Yes 600mg Take 600 Un [place] 100 mg 5-09 mg by ity of capsule 00:35: mouth 3 [place] 08 (three) Medical times Branch daily. hydrOXYzine 2020-0 Yes 50mg Take 50 mg Univers 50 mg 5-09 by mouth 3 ity of tablet 00:35: (three) [place] 08 times Medical daily as Branch needed for Itching. traZODone 2020-0 Yes 50mg Take 50 mg Un [place] 50 mg 5-09 by mouth ity of tablet 00:35: at [place] 08 bedtime. Medical Branch risperiDONE 2020-0 Yes 2mg Take 2 mg U nivers 2 mg tablet 5-09 by mouth ity of 00:35: at [place] 08 bedtime. Medical Branch traMADol 2020-0 Yes 50mg Take 50 mg Uni vers 100 mg 5-09 by mouth 3 ity of capsule 00:35: (three) [place] 08 times Medical daily. Branch venlafaxine 2020-0 Yes 225mg Take 225 U nivers HCl 5-09 mg by ity of (EFFEXOR 00:35: mouth [place] ORAL) 08 daily. Medical Branch gabapentin 2020-0 Yes 600mg Take 600 Un [place] 100 mg 5-09 mg by ity of capsule 00:35: mouth 3 [place] 08 (three) Medical times Branch daily. hydrOXYzine 2020-0 Yes 50mg Take 50 mg Univers 50 mg 5-09 by mouth 3 ity of tablet 00:35: (three) [place] 08 times Medical daily as Branch needed for Itching. traZODone 2020-0 Yes 50mg Take 50 mg Un [place] 50 mg 5-09 by mouth ity of tablet 00:35: at [place] 08 bedtime. Medical Branch risperiDONE 2020-0 Yes 2mg Take 2 mg U nivers 2 mg tablet 5-09 by mouth ity of 00:35: at [place] 08 bedtime. Medical Branch flu vaccine 2020-0 2021- No .5mL 0.5 mL, Un ro[place]anna 6 months 5-08 05-08 Intramuscu ity of and up (PF) 20:15: 21:09 lar, ONCE, [place] (FLUZONE 00 :00 1 dose, Medical QUAD 07/27/20 Branch at 1515, (PF)) Routine syringe 0.5 mL traMADol 2020-0 Yes 50mg Take 50 mg Uni vers 100 mg 5-08 by mouth 3 ity of capsule 19:35: (three) [place] 08 times Medical daily. Branch venlafaxine 2020-0 Yes 225mg Take 225 U nivers HCl 5-08 mg by ity of (EFFEXOR 19:35: mouth [place] ORAL) 08 daily. Medical Branch gabapentin 2020-0 Yes 600mg Take 600 Un [place] 100 mg 5-08 mg by ity of capsule 19:35: mouth 3 [place] 08 (three) Medical times Branch daily. hydrOXYzine 2020-0 Yes 50mg Take 50 mg Univers 50 mg 5-08 by mouth 3 ity of tablet 19:35: (three) [place] 08 times Medical daily as Branch needed for Itching. traZODone 2020-0 Yes 50mg Take 50 mg Un ro[place] 50 mg 5-08 by mouth ity of tablet 19:35: at [place] 08 bedtime. Medical Branch risperiDONE 2020-0 Yes 2mg Take 2 mg U nivers 2 mg tablet 5-08 by mouth ity of 19:35: at [place] 08 bedtime. Medical Branch traMADol 2020-0 Yes 50mg Take 50 mg Uni vers 100 mg 5-08 by mouth 3 ity of capsule 19:35: (three) [place] 08 times Medical daily. Branch venlafaxine 2020-0 Yes 225mg Take 225 U nivers HCl 5-08 mg by ity of (EFFEXOR 19:35: mouth [place] ORAL) 08 daily. Medical Branch gabapentin 2020-0 Yes 600mg Take 600 Un [place] 100 mg 5-08 mg by ity of capsule 19:35: mouth 3 [place] 08 (three) Medical times Branch daily. hydrOXYzine 2020-0 Yes 50mg Take 50 mg Univers 50 mg 5-08 by mouth 3 ity of tablet 19:35: (three) [place] 08 times Medical daily as Branch needed for Itching. traZODone 2020-0 Yes 50mg Take 50 mg Un [place] 50 mg 5-08 by mouth ity of tablet 19:35: at [place] 08 bedtime. Medical Branch risperiDONE Yes 2mg Take 2 mg U nivers 2 mg tablet 08 by mouth ity of 19:35: at [place] 08 bedtime. Medical Branch traMADol 0 Yes 50mg Take 50 mg Uni vers 100 mg -08 by mouth 3 ity of capsule 19:35: (three) [place] 08 times Medical daily. Branch venlafaxine Yes 225mg Take 225 U nivers HCl 5-08 mg by ity of (EFFEXOR 19:35: mouth [place] ORAL) 08 daily. Medical Branch gabapentin 0 Yes 600mg Take 600 Un ro[place] 100 mg 5-08 mg by ity of capsule 19:35: mouth 3 [place] 08 (three) Medical times Branch daily. hydrOXYzine Yes 50mg Take 50 mg Univers 50 mg -08 by mouth 3 ity of tablet 19:35: (three) [place] 08 times Medical daily as Branch needed for Itching. traZODone Yes 50mg Take 50 mg Un [place] 50 mg -08 by mouth ity of tablet 19:35: at [place] 08 bedtime. Medical Branch risperiDONE Yes 2mg Take 2 mg U nivers 2 mg tablet 08 by mouth ity of 19:35: at [place] 08 bedtime. Medical Branch lisinopriL Yes 5mg 5 mg, Univer s (PRINIVIL,Z 07-27 Oral, ity of ESTRIL) 14:00: DAILY, [place] tablet 5 mg 00 First dose Me dical on [facility] Branch 07/27/20 at 0900, Until Discontinu ed, Routine furosemide Yes 80mg 80 mg, Unive rs (LASIX) 07-27 Oral, ity of tablet 80 14:00: QAM+PM, [place] mg 00 First dose Medical on [facility] Branch 07/27/20 at 0900, Until Discontinu ed, Routine furosemide 2020- No 80mg 80 mg, Univ ers (LASIX) 07-27-08 Slow IV ity of injection 13:45: 14:35 Push, ONCE [place] 80 mg 00 :00 NOW, 1 Medical dose, Sat Branch 07/27/20 at 0845, Routine KCL 2020-0 2020- No 40meq 40 mEq, Univers (KLOR-CON 07-27 Oral, ONCE ity of M20) tablet 13:30: 14:34 NOW, 1 [place] as 40 mEq 00 :00 dose, [facility] Medical 07/27/20 at Branch 0830, Routine acetaminoph 0 Yes 1{tbl} 1 tablet, [facility] en-codeine 07-27 Oral, ity of (TYLENOL 03:00: Q6HPRN, [place] #3) 300-30 00 Starting Medic al mg tablet 1 Wed07/26/20 Br anch tablet at 2200, Until Discontinu ed, Routine, Pain (scale 4-6), Pain (scale 7-10) hydrOXYzine 2020- No 50mg 50 mg, Uni vers (ATARAX) 07-27 Oral, ity of tablet 50 03:00: 02:21 ONCE, 1 [place] mg 00 :00 dose, Fri [facility] 07/26/20 at Branch 2200, Routine traZODone Yes 50mg 50 mg, Univer s (DESYREL) 07-27 Oral, QHS, ity of tablet 50 02:00: First dose [place] mg 00 on Wed [facility] 07/26/20 at Branch 2100, Until Discontinu ed, Routine risperiDONE Yes 2mg 2 mg, Unive rs (RISPERDAL) 07-27 Oral, QHS, it y of tablet 2 mg 02:00: First dose [place] 00 on Wed [facility] 07/26/20 at Branch 2100, Until Discontinu ed, Routine furosemide No 80mg 80 mg, Univ ers (LASIX) 07-27 Slow IV ity of injection 01:00: 12:36 Push, [place] 80 mg 00 :52 Q12H, Medical First dose [place] (after last modificati on) on Wed07/26/20 at 2000, Until Discontinu ed, Routine magnesium 2020- No 4g 4 g, IV Univ ers sulfate in 07-27 Piggyback, it y of water 4 00:30: 01:44 ONCE, 1 [place] gram/50 mL 00 :00 dose, Fri Medi carol (8 %) IV 07/26/20 at [place] Piggyback 4 1930, g Routine lisinopriL Yes [id number] 5mg Take 1 [facility] 5 mg tablet 5-08 tablet by ity of 00:00: mouth [place] 00 daily. Medical Branch lisinopriL Yes [id number] 5mg Take 1 [facility] 5 mg tablet 5-08 tablet by ity of 00:00: mouth [place] 00 daily. Medical Branch lisinopriL Yes [id number] 5mg Take 1 [facility] 5 mg tablet 5-08 tablet by ity of 00:00: mouth [place] 00 daily. Medical Branch lisinopriL Yes [id number] 5mg Take 1 [facility] 5 mg tablet 5-08 tablet by ity of 00:00: mouth [place] 00 daily. Medical Branch lisinopriL Yes [id number] 5mg Take 1 [facility] 5 mg tablet 5-08 tablet by ity of 00:00: mouth [place] 00 daily. Medical Branch lisinopriL 2021- No [id number] 5mg Take 1 [facility] 5 mg tablet 5-08 07-14 tablet by it y of 00:00: 00:00 mouth [place] 00 :00 daily. Medical Branch KCL 20 mEq 2021- No [id number] 40meq Take 2 Univers tablet 5-08 05-04 tablets by ity of 00:00: 04:59 mouth [place] 00 :00 daily for Medical 360 days. Branch KCL 20 mEq 2021- No [id number] 40meq Take 2 Univers tablet 5-08 05-04 tablets by ity of 00:00: 04:59 mouth [place] 00 :00 daily for Medical 360 days. Branch KCL 20 mEq 2020-0 2021- No [id number] 40meq Take 2 Univers tablet 5-08 05-04 tablets by ity of 00:00: 04:59 mouth [place] 00 :00 daily for Medical 360 days. Branch KCL 20 mEq 2020-0 2021- No [id number] 40meq Take 2 Univers tablet 5-08 05-04 tablets by ity of 00:00: 04:59 mouth [place] 00 :00 daily for Medical 360 days. Branch KCL 20 mEq 2021- No [id number] 40meq Take 2 Univers tablet 5-08 05-04 tablets by ity of 00:00: 04:59 mouth [place] 00 :00 daily for Medical 360 days. Branch lisinopriL 2020- No [id number] 5mg Take 1 Univers 5 mg tablet 07-27 tablet by it y of 00:00: 00:00 mouth [place] 00 :00 daily. Medical Branch amLODIPine 2020- No 10mg Take 10 mg Univers 10 mg 07-26 by mouth ity of tablet 20:22: 00:00 daily. [place] 37 :00 Medical Branch metoprolol 2020- No 50mg Take 50 mg Univers tartrate 50 07-26 by mouth 2 i ty of mg tablet 20:22: 00:00 (two) [place] 37 :00 times Medical daily. Branch apixaban No 5mg Take 5 mg Uni vers (ELIQUIS) 5 07-26 by mouth 2 i ty of mg tablet 20:22: 00:00 (two) [place] 37 :00 times Medical daily. Branch insulin No 55U inject 55 Univ ers detemir 07-26 Units ity of (LEVEMIR 20:22: 00:00 under the [place] as FLEXPEN SC) 37 :00 skin every Me dical morning. Branch furosemide 2020- No 40mg Take 40 mg Univers (LASIX) 40 07-26 by mouth ity of mg tablet 20:22: 00:00 daily. [place] 37 :00 Medical Branch methocarbam Yes 500mg 500 mg, Un ro[place]anna oL 07-26 Oral, QID, ity of (ROBAXIN) 17:00: First dose [place] tablet 500 00 on Wed Medical mg 07/26/20 at Branch 1200, Until Discontinu ed, Routine butalbital- 2020- No 1{tbl} 1 tablet, Univers acetaminoph 07-26 Oral, ONCE i ty of en-caff 16:15: 15:40 NOW, 1 [place] (ESGIC) 00 :00 dose, Fri Medical 50-325-40 07/26/20 at [facility] h mg tablet 1 1115, tablet Routine proMETHazin Yes 12.5mg 12.5 mg, Univers e 07-26 IV ity of (PHENERGAN) 15:07: Piggyback, [place] 12.5 mg in 17 Q4HPRN, Medica l NaCl 0.9% Starting Branch (NS) 50 mL Wed07/26/20 IV at 1007, piggyback Until Discontinu ed, Routine, Nausea and Vomiting (N/V) furosemide 2020- No 40mg 40 mg, Univ ers (LASIX) 07-26 05-07 Slow IV ity of injection 15:05: 15:41 Push, [place] 40 mg 00 :00 ONCE, 1 Medical dose, Wed Branch 07/26/20 at 1015, Routine insulin Yes 40U 40 Units, Unive rs glargine 07-26 Subcutaneo ity o f (LANTUS 14:00: us, DAILY, [place] U-100) 00 First dose Medical injection on Wed Branch 40 Units 07/26/20 at 0900, Until Discontinu ed, Routine venlafaxine Yes 225mg 225 mg, Un ro[place]anna (EFFEXOR) 07-26 Oral, ity of tablet 225 14:00: DAILY, [place] mg 00 First dose Medical on Wed Branch 07/26/20 at 0900, Until Discontinu ed amLODIPine Yes 10mg 10 mg, Unive rs (NORVASC) 07-26 Oral, ity of tablet 10 14:00: DAILY, [place] mg 00 First dose Medical on Wed Branch 07/26/20 at 0900, Until Discontinu ed, Routine apixaban Yes 5mg 5 mg, Univers (ELIQUIS) 5 Oral, BID, ity of tablet 5 mg 13:00: First dose [place] 00 on Wed Medical 07/26/20 at Branch 0800, Until Discontinu ed, Routine metoprolol Yes 50mg 50 mg, Unive rs tartrate -07 Oral, BID, ity o f (LOPRESSOR) 13:00: First dose [place] tablet 50 00 on Wed Medical mg 07/26/20 at Branch 0800, Until Discontinu ed, Routine gabapentin Yes 600mg 600 mg, Uni vers (NEURONTIN) 507 Oral, TID, it y of capsule 600 13:00: First dose [place] mg 00 on Wed Medical 07/26/20 at Branch 0800, Until Discontinu ed, Routine Sliding 2021-0 Yes Subcutaneo Univ ers Scale 5-07 us, TID ity of Insulin - 13:00: MEALS+HS, [place] as Lispro 00 First dose Medical (HumaLOG) + on Wed Branch [facility] 07/26/20 at Testing 0800, Until Discontinu ed, Routine furosemide No 40mg 40 mg, Univ ers (LASIX) 07-26 05-07 Slow IV ity of injection 13:00: 15:07 Push, [place] 40 mg 00 :36 Q12H, Medical First dose Branch on Wed07/26/20 at 0800, Until Discontinu ed, Routine pantoprazol Yes 40mg 40 mg, Univ ers e 07-26 Oral, ity of (PROTONIX) 07:30: DAILY, [place] EC tablet 00 First dose Medi carol 40 mg on Wed Branch 07/26/20 at 0230, Until Discontinu ed, Routine escitalopra 2020- No 20mg Take 20 mg Univers m oxalate 07-26 by mouth ity o f 20 mg 05:22: 00:00 daily. At [place] tablet 10 :00 noon [facility] montelukast 2020- No 10mg Take 10 mg Univers 10 mg 07-26 by mouth. ity of tablet 05:22: 00:00 At night [place] 10 :00 [facility] acetaminoph Yes 650mg 650 mg, Un roasnna en 07-26 Oral, ity of (TYLENOL) 05:14: Q6HPRN, [place] tablet 650 47 Starting Medic al mg Wed07/26/20 Branch at 0014, Until Discontinu ed, Routine, Pain (scale 1-3) furosemide 2020- No 40mg 40 mg, Univ ers (LASIX) 07-26 05-07 Slow IV ity of injection 05:00: 04:49 Push, [place] 40 mg 00 :00 ONCE, 1 Medical dose, Wed Branch 07/26/20 at 0000, Routine furosemide 2020- No 40mg 40 mg, IV U nivers (LASIX) 07-26 05-07 Push, ity of injection 03:30: 02:51 ONCE, 1 [place] 40 mg 00 :00 dose, [place] Medical 07/25/20 at Branch 2230, MADDIE ondansetron 2020- No 4mg 4 mg, Slow Univers (ZOFRAN 07-26 IV Push, ity of (PF)) 03:00: 02:48 ONCE, 1 [place] injection 4 00 :00 dose, [place] Med ical mg 07/25/20 at Branch 2200, MADDIE FENTanyl PF No 50ug 50 mcg, Un rosanna (SUBLIMAZE 07-26 Slow IV ity o f (PF)) 03:00: 02:54 Push, [place] injection 00 :00 ONCE, 1 Medical 50 mcg dose, [place] Branch 07/25/20 at 2200, Routine ondansetron 2020- No 4mg 4 mg, Slow Univers (ZOFRAN 07-26 IV Push, ity of (PF)) 02:30: 04:49 ONCE, 1 [place] injection 4 00 :00 dose, [place] Med ical mg 07/25/20 at Branch 2130, MADDIE famotidine No 20mg 20 mg, Univ ers (PEPCID 07-26 Slow IV ity of (PF)) 02:30: 02:48 Push, [place] injection 00 :00 ONCE, 1 Medical 20 mg dose, [facility] Branch 07/25/20 at 2130, MADDIE methocarbam No [id number] 500mg Take 1 Univers oL 500 mg 07-26 tablet by ity of tablet 00:00: 04:59 mouth 4 [place] 00 :00 (four) Medical times Branch daily for 30 days. insulin 2020- No [id number] 55U inject 55 Univers detemir 07-26- Units ity of U-100 100 00:00: 04:59 under the [place] unit/mL 00 :00 skin daily Medica l injection for 30 Branch days. furosemide 2020- No [id number] 60mg Take 3 Univers 20 mg 07-26 tablets by ity of tablet 00:00: 04:59 mouth [place] 00 :00 every Medical morning Branch and evening for 30 days. amLODIPine 2020- No [id number] 10mg Take 1 Univers 10 mg 07-26 tablet by ity of tablet 00:00: 04:59 mouth [place] 00 :00 daily for Medical 30 days. Branch apixaban 5 2020- No 5mg Take 1 Univ ers mg tablet 07-26 tablet by ity of 00:00: 04:59 mouth 2 [place] 00 :00 (two) Medical times [place] daily for 30 days. Indication s: PE metoprolol 2020-0 2020- No [id number] 50mg Take 1 Univers succinate 07-26- tablet by ity of XL 50 mg 24 00:00: 04:59 mouth 2 [place] hr tablet 00 :00 (two) Medical times [place] daily for 30 days. escitalopra Yes 20mg Take 20 mg Univers m oxalate -19 by mouth ity of 20 mg 22:54: daily. At [address] montelukast 0 Yes 10mg Take 10 mg Univers 10 mg 19 by mouth. ity of tablet 22:54: At night [address] apixaban 0 Yes 5mg 5 mg, Univers (ELIQUIS) -18 Oral, BID, ity of tablet 5 mg 02:30: First dose [place] 00 on [facility] 04/07/20 at Branch 2030, Until Discontinu ed, Routine metoprolol Yes 50mg 50 mg, Unive rs tartrate -17 Oral, BID, ity o f (LOPRESSOR) 14:00: First dose [place] tablet 50 00 (after Medical mg last Branch modificati on) on [place] 04/07/20 at 0800, Until Discontinu ed, Routine atorvastati Yes 40mg 40 mg, Univ ers n (LIPITOR) 1-17 Oral, QHS, it y of tablet 40 03:00: First dose [place] mg 00 on [facility] Medical 04/06/20 at Branch 2100, Until Discontinu ed, Routine QUEtiapine 0 Yes 400mg 400 mg, Uni vers (SEROQUEL) 1-17 Oral, QPM ity of tablet 400 02:00: AT 2000, [place] as mg 00 First dose Medical on [facility] Branch 04/06/20 at 2000, Until Discontinu ed, Routine escitalopra 0 Yes 20mg 20 mg, Univ ers m oxalate 1-16 Oral, ity of (LEXAPRO) 19:00: DAILY, [place] tablet 20 00 First dose Medi carol mg on [facility] Branch 04/06/20 at 1300, Until Discontinu ed, Routine QUEtiapine Yes 50mg 50 mg, Unive rs (SEROQUEL) 16 Oral, QAM, ity of tablet 50 15:00: First dose [place] mg 00 on [facility] 04/06/20 at Branch 0900, Until Discontinu ed, Routine amLODIPine Yes 10mg 10 mg, Unive rs (NORVASC) 16 Oral, ity of tablet 10 15:00: DAILY, [place] mg 00 First dose Medical on [facility] Branch 04/06/20 at 0900, Until Discontinu ed, Routine famotidine Yes 20mg 20 mg, Unive rs (PEPCID AC) 04-06 Oral, BID, it y of tablet 20 14:00: First dose [place] mg 00 on [facility] 04/06/20 at Branch 0800, Until Discontinu ed, MADDIE metoprolol 2020- No 100mg 100 mg, Un rosanna tartrate 04-06 Oral, BID, ity of (LOPRESSOR) 14:00: 02:59 First dose [place] tablet 100 00 :04 on [facility] mg 04/06/20 at Branch 0800, Until Discontinu ed, Routine acetaminoph 2020- No 650mg 650 mg, U nivers en 04-06 Oral, ity of (TYLENOL) 14:00: 14:16 ONCE, 1 [place] tablet 650 00 :00 dose, Sat Medi carol mg 04/06/20 at Branch 0800, MADDIE famotidine 2020- No 20mg 20 mg, Univ ers (PEPCID AC) 04-06 Oral, ity of tablet 20 08:00: 07:06 ONCE, 1 [place] mg 00 :00 dose, [facility] 04/06/20 at Branch 0200, MADDIE traMADoL 0 Yes 100mg 100 mg, Unive rs (ULTRAM) 16 Oral, ity of tablet 100 06:52: Q8HPRN, [place] mg 53 Starting Medical [facility] 04/06/20 at 0052, Until Discontinu ed, Routine, Pain (scale 7-10) LORazepam 0 2020- No 1mg 1 mg, Univer s (ATIVAN) 04-06 Oral, ity of tablet 1 mg 04:30: 05:39 ONCE, 1 [place] 00 :00 dose, Fri Medical 04/05/20 at Branch 2230, MADDIE ondansetron 2020- No 4mg 4 mg, Univ ers (ZOFRAN-ODT 04-06 Oral, ity of ) 03:00: 02:10 ONCE, 1 [place] disintegrat 00 :00 dose, Wed Med ical ing tablet 04/05/20 at [facility] [place] 4 mg 2100, Routine traMADoL Yes 50mg 50 mg, Univers (ULTRAM) 04-06 Oral, ity of tablet 50 01:59: Q6HPRN, [place] mg 28 Starting Medical [facility] Branch 04/05/20 at 1959, Until Discontinu ed, Routine, Pain (scale 4-6) dicyclomine 2019-03 Yes 20mg 20 mg, [facility] ers (BENTYL) 006 Intramuscu ity o f injection 13:00: lar, QID, [place] as 20 mg 00 First dose Medical on [facility] 12/26/19 at 0800, Until Discontinu ed, Routine FENTanyl PF 2019-03 No 100ug 100 mcg, Univers (SUBLIMAZE 0-06 -06 Intramuscu it y of (PF)) 08:45: 07:47 lar, ONCE, [place] injection 00 :00 1 dose, Medical 100 mcg [facility] 12/26/19 at 0345, Routine famotidine 2019-03- No 20mg 20 mg, [facility] ers (PEPCID 0-06 -06 Slow IV ity of (PF)) 07:45: 06:43 Push, [place] injection 00 :00 ONCE, 1 Medical 20 mg dose, [facility] 12/26/19 at 0245, MADDIE maalox:diph 2019-03- No 15mL 15 mL, Uni vers enhydrAMINE 0-06 10-06 Oral, ity of :lidocaine 07:45: 06:42 ONCE, 1 [place] 2 % viscous 00 :00 dose, [facility] Med ical 1:1:1 12/26/19 at Branch (FIRST-MOUT 0245, [facility]) Routine oral suspension 15 mL sucralfate 2020- Yes [id number] 1g Take 1 Univers 1 gram 0-06 tablet by ity of tablet 00:00: mouth [place] 00 before Medical meals and Branch at bedtime. sucralfate 2020- Yes [id number] 1g Take 1 Univers 1 gram 0-06 tablet by ity of tablet 00:00: mouth [place] 00 before Medical meals and Branch at bedtime. sucralfate 2019- Yes [id number] 1g Take 1 Univers 1 gram 0-06 tablet by ity of tablet 00:00: mouth [place] 00 before Medical meals and Branch at bedtime. sucralfate 2020- Yes [id number] 1g Take 1 Univers 1 gram 0-06 tablet by ity of tablet 00:00: mouth [place] 00 before Medical meals and Branch at bedtime. sucralfate 2019- Yes [id number] 1g Take 1 [facility] 1 gram 0-06 tablet by ity of tablet 00:00: mouth [place] 00 before Medical meals and Branch at bedtime. sucralfate 2019- Yes [id number] 1g Take 1 [facility] 1 gram 0-06 tablet by ity of tablet 00:00: mouth [place] 00 before Medical meals and Branch at bedtime. sucralfate 2019- Yes [id number] 1g Take 1 [facility] 1 gram 0-06 tablet by ity of tablet 00:00: mouth [place] 00 before Medical meals and Branch at bedtime. sucralfate 2019- Yes [id number] 1g Take 1 [facility] 1 gram 0-06 tablet by ity of tablet 00:00: mouth [place] 00 before Medical meals and Branch at bedtime. sucralfate 2019- Yes [id number] 1g Take 1 [facility] 1 gram 0-06 tablet by ity of tablet 00:00: mouth [place] 00 before Medical meals and Branch at bedtime. sucralfate 2020-2020- No [id number] 1g Take 1 [facility] 1 gram 0-06 05-07 tablet by ity of tablet 00:00: 00:00 mouth [place] 00 :00 before Medical meals and Branch at bedtime. ondansetron 2019- Yes 4mg Take [address] [facility] (ZOFRAN-ODT 0-05 tablet (4 [place] ) 4 MG 00:00: mg total) [facility]at [facility] every 8 (eight) hours as needed. ondansetron 2019-03 Yes 4mg Take [address] [facility] (ZOFRAN-ODT 0-05 tablet (4 [place] ) 4 MG 00:00: mg total) [facility] l disintegrat [facility] mouth [facility] tablet every 8 (eight) hours as needed. traMADoL 2019-03 Yes 50mg Take [address] [facility] 100 mg MP25 0-04 by mouth. [place] 23:07: [address] traMADoL 2019-03 Yes 50mg Take [address] [facility] 100 mg MP25 0-04 by mouth. 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 Branch aspirin 81 2019-03 2020- No [id number] 81mg Take 1 [facility] mg chewable 0-01 10-16 tablet by it y of tablet 00:00: 04:59 mouth [place] 00 :00 daily for Medical 14 days. Branch amLODIPine 2019-03 2020- No [id number] 7.5mg Take 1.5 [facility] 5 mg tablet 0-01 10-16 tablets by i ty of 00:00: 04:59 mouth [place] 00 :00 daily for Medical 14 days. Branch aspirin 81 2019-03 2020- No [id number] 81mg Take 1 [facility] mg chewable 0-01 10-16 tablet by it y of tablet 00:00: 04:59 mouth [place] 00 :00 daily for Medical 14 days. Branch amLODIPine 2020- 2020- No [id number] 7.5mg Take 1.5 [facility] 5 mg tablet 0-01 10-16 tablets by i ty of 00:00: 04:59 mouth [place] 00 :00 daily for Medical 14 days. Branch aspirin 81 2019- 2020- No [id number] 81mg Take 1 [facility] mg chewable 0-01 10-16 tablet by it y of tablet 00:00: 04:59 mouth [place] 00 :00 daily for Medical 14 days. Branch amLODIPine 2020- 2020- No [id number] 7.5mg Take 1.5 [facility] 5 mg tablet 0-01 10-16 tablets by i ty of 00:00: 04:59 mouth [place] 00 :00 daily for Medical 14 days. Branch aspirin 81 2019- 2020- No [id number] 81mg Take 1 [facility] mg chewable 0-01 10-16 tablet by it y of tablet 00:00: 04:59 mouth [place] 00 :00 daily for Medical 14 days. Branch amLODIPine 2019- 2020- No [id number] 7.5mg Take 1.5 [facility] 5 mg tablet 0-01 10-16 tablets by i ty of 00:00: 04:59 mouth [place] 00 :00 daily for Medical 14 days. Branch aspirin 81 2019- 2020- No [id number] 81mg Take 1 [facility] mg chewable 0-01 10-16 tablet by it y of tablet 00:00: 04:59 mouth [place] 00 :00 daily for Medical 14 days. Branch amLODIPine 2020- 2020- No [id number] 7.5mg Take 1.5 [facility] 5 mg tablet 0-01 10-16 tablets by i ty of 00:00: 04:59 mouth [place] 00 :00 daily for Medical 14 days. Branch aspirin 81 2019- 2020- No [id number] 81mg Take 1 [facility] mg chewable 0-01 10-16 tablet by it y of tablet 00:00: 04:59 mouth [place] 00 :00 daily for Medical 14 days. Branch amLODIPine 2020- 2020- No [id number] 7.5mg Take 1.5 [facility] 5 mg tablet 0-01 10-16 tablets by i ty of 00:00: 04:59 mouth [place] 00 :00 daily for Medical 14 days. Branch aspirin 81 2019- 2020- No [id number] 81mg Take 1 [facility] mg chewable 0-01 10-16 tablet by it y of tablet 00:00: 04:59 mouth [place] 00 :00 daily for Medical 14 days. Branch valsartan 2019-1 2020- No [id number] 40mg Take 1 [facility] n[facility] 40 mg 0- 09-30 tablet by ity of tablet 00:00: 00:00 mouth [place] 00 :00 daily for Medical 14 days. Branch traMADol 2020-0 Yes 50mg Take 50 mg [facility] 100 mg 9-30 by mouth 3 ity of capsule 23:20: (three) [place] 23 times Medical daily. Branch traMADol 2020-0 Yes 50mg Take 50 mg [facility] 100 mg 9-30 by mouth 3 ity of capsule 23:20: (three) [place] 23 times Medical daily. Branch traMADol 2020-0 Yes 50mg Take 50 mg [facility] 100 mg 9-30 by mouth 3 ity of capsule 23:20: (three) [place] 23 times Medical daily. Branch traMADol 2020-0 Yes 50mg Take 50 mg [facility] 100 mg 9-30 by mouth 3 ity of capsule 23:20: ([facility]) [place] 23 times Medical daily. Branch traMADol 2020-0 Yes 50mg Take 50 mg [facility] vers 100 mg 9-30 by mouth 3 ity of capsule 23:20: (three) [place] 23 times Medical daily. Branch traMADol 2020-0 Yes 50mg Take 50 mg [facility] 100 mg 9-30 by mouth 3 ity of capsule 23:20: (three) [place] 23 times Medical daily. Branch traMADol 2020-0 Yes 50mg Take 50 mg [facility] vers 100 mg 9-30 by mouth 3 ity of capsule 23:20: (three) [place] 23 times Medical daily. Branch traMADol 2020-0 Yes 50mg Take 50 mg [facility] vers 100 mg 9-30 by mouth 3 ity of capsule 23:20: (three) [place] 23 times Medical daily. Branch traMADol 2020-0 Yes 50mg Take 50 mg [facility] vers 100 mg 9-30 by mouth 3 ity of capsule 23:20: (three) [place] 23 times Medical daily. Branch traMADol 2020-0 Yes 50mg Take 50 mg [facility] 100 mg 9-30 by mouth 3 ity of capsule 23:20: (three) [place] 23 times Medical daily. Branch traMADol 2020-0 Yes 50mg Take 50 mg [facility] vers 100 mg 9-30 by mouth 3 ity of capsule 23:20: (three) [place] 23 times Medical daily. Branch traMADol 2020-0 Yes 50mg Take 50 mg [facility] vers 100 mg 12-19 by mouth 3 ity of capsule 23:20: (three) [place] 23 times Medical daily. Branch traMADol 2020-0 Yes 50mg Take 50 mg [facility] vers 100 mg 30 by mouth 3 ity of capsule 23:20: (three) [place] 23 times Medical daily. Branch azilsartan 2019-0 2020- No Take by Uni vers med-chlorth 12-19 mouth ity of alidone 20:47: 00:00 daily. [place] (EDARBYCLOR 40 :00 Medical ) 40-12.5 Branch mg Tab dapaglifloz 2020- No Take by Un ro[place] in 12-19 mouth ity of (FARXIGA) 20:47: 00:00 daily. [place] 10 mg 40 :00 Medical tablet Branch famotidine 2019- No 40mg 40 mg, [facility] ers (PEPCID 12-19 Slow IV ity of (PF)) 19:30: 21:29 Push, [place] injection 00 :00 ONCE, 1 Medical 40 mg dose, Wed Branch 12/20/19 at 1430, Routine pantoprazol 2019- No 40mg 40 mg, IV Univers e 12-19 Push, ity of (PROTONIX) 19:30: 21:31 ONCE, 1 [place] 40 mg in 00 :00 dose, Wed Medica l NaCl 0.9% 12/20/19 at Bran ch (NS) 20 mL 1430, 20 syringe mL NaCl 0.9% 2019- No 250mL at 50 Unive rs (NS) IV 12-19 mL/hr, IV ity of infusion 15:00: 14:03 Infusion, [place] as 250 mL 00 :00 ONCE, 1 Medical dose, [facility] Branch 12/20/19 at 1000, Routine metoprolol 2019-0 2019- No 37.5mg 37.5 mg, Univers tartrate 12-19 Oral, BID, ity of (LOPRESSOR) 13:00: 16:47 First dose [place] half tablet 00 :48 (after Medica l 37.5 mg last Branch modificati on) on Wed12/20/19 at 0800, Until Discontinu ed, Routine magnesium 2020-0 2020- No 2g 2 g, IV Univ ers sulfate in 12-19 Piggyback, it y of water 2 13:00: 13:49 ONCE, 1 [place] gram/50 mL 00 :00 dose, Wed Medi carol (4 %) 12/20/19 at Branch infusion 2 0800, g Routine azilsartan 2020-0 Yes [id number] 1{tbl} Take 1 [facility] med-chlorth 9-30 tablet by ity of alidone 00:00: mouth [place] (EDARBYCLOR 00 daily. Medica l ) 40-12.5 Branch mg Tab azilsartan 2020-0 Yes [id number] 1{tbl} Take 1 [facility] med-chlorth 9-30 tablet by ity of alidone 00:00: mouth [place] (EDARBYCLOR 00 daily. Medica l ) 40-12.5 Branch mg Tab azilsartan 2020-0 Yes [id number] 1{tbl} Take 1 [facility] med-chlorth 9-30 tablet by ity of alidone 00:00: mouth [place] (EDARBYCLOR 00 daily. Medica l ) 40-12.5 Branch mg Tab azilsartan 2020-0 Yes [id number] 1{tbl} Take 1 [facility] med-chlorth 9-30 tablet by ity of alidone 00:00: mouth [place] (EDARBYCLOR 00 daily. Medica l ) 40-12.5 Branch mg Tab azilsartan 2020-0 Yes [id number] 1{tbl} Take 1 [facility] med-chlorth 9-30 tablet by ity of alidone 00:00: mouth [place] (EDARBYCLOR 00 daily. Medica l ) 40-12.5 Branch mg Tab azilsartan 2020-0 Yes [id number] 1{tbl} Take 1 [facility] med-chlorth 9-30 tablet by ity of alidone 00:00: mouth [place] (EDARBYCLOR 00 daily. Medica l ) 40-12.5 Branch mg Tab azilsartan 2020-0 Yes [id number] 1{tbl} Take 1 [facility] med-chlorth 9-30 tablet by ity of alidone 00:00: mouth [place] (EDARBYCLOR 00 daily. Medica l ) 40-12.5 Branch mg Tab azilsartan 2020-0 Yes [id number] 1{tbl} Take 1 [facility] med-chlorth 9-30 tablet by ity of alidone 00:00: mouth [place] (EDARBYCLOR 00 daily. Medica l ) 40-12.5 Branch mg Tab azilsartan 2020-0 Yes [id number] 1{tbl} Take 1 [facility] med-chlorth 9-30 tablet by ity of alidone 00:00: mouth [place] (EDARBYCLOR 00 daily. Medica l ) 40-12.5 Branch mg Tab azilsartan 2020-0 Yes [id number] 1{tbl} Take 1 [facility] med-chlorth 9-30 tablet by ity of alidone 00:00: mouth [place] (EDARBYCLOR 00 daily. Medica l ) 40-12.5 Branch mg Tab azilsartan 2020-0 Yes [id number] 1{tbl} Take 1 [facility] med-chlorth 9-30 tablet by ity of alidone 00:00: mouth [place] (EDARBYCLOR 00 daily. Medica l ) 40-12.5 Branch mg Tab azilsartan 2020-0 Yes [id number] 1{tbl} Take 1 [facility] med-chlorth 9-30 tablet by ity of alidone 00:00: mouth [place] (EDARBYCLOR 00 daily. Medica l ) 40-12.5 Branch mg Tab azilsartan 2020-0 Yes [id number] 1{tbl} Take 1 [facility] med-chlorth 9-30 tablet by ity of alidone 00:00: mouth [place] (EDARBYCLOR 00 daily. Medica l ) 40-12.5 Branch mg Tab azilsartan 2020-0 2021- No [id number] 1{tbl} Take 1 [facility] med-chlorth 9-30 05-07 tablet by it y of alidone 00:00: 00:00 mouth [place] (EDARBYCLOR 00 :00 daily. Medica l ) 40-12.5 Branch mg Tab apixaban 5 2020-0 2020- No [id number] 5mg Take 1 Univ ers mg tablet 9-30 12-30 tablet by ity of 00:00: 05:59 mouth 2 [place] 00 :00 (two) Medical times Branch daily for 90 days. Indication s: deep vein thrombosis prevention , treatment to prevent recurrence of a blood clot in the lungs apixaban 5 2020-0 2020- No [id number] 5mg Take 1 Univ ers mg tablet 9-30 12-30 tablet by ity of 00:00: 05:59 mouth 2 [place] 00 :00 (two) Medical times Branch daily for 90 days. Indication s: deep vein thrombosis prevention , treatment to prevent recurrence of a blood clot in the lungs apixaban 5 2020-0 2020- No [id number] 5mg Take 1 Univ ers mg tablet 9-30 12-30 tablet by ity of 00:00: 05:59 mouth 2 [place] 00 :00 (two) Medical times Branch daily for 90 days. Indication s: deep vein thrombosis prevention , treatment to prevent recurrence of a blood clot in the lungs apixaban 5 2020-0 2020- No [id number] 5mg Take 1 [facility] ers mg tablet 9-30 12-30 tablet by ity of 00:00: 05:59 mouth 2 [place] 00 :00 (two) Medical times Branch daily for 90 days. Indication s: deep vein thrombosis prevention , treatment to prevent recurrence of a blood clot in the lungs apixaban 5 2020-0 2020- No [id number] 5mg Take 1 [facility] ers mg tablet 9-30 12-30 tablet by ity of 00:00: 05:59 mouth 2 [place] 00 :00 (two) Medical times Branch daily for 90 days. Indication s: deep vein thrombosis prevention , treatment to prevent recurrence of a blood clot in the lungs apixaban 5 2020-0 2020- No [id number] 5mg Take 1 [facility] ers mg tablet 9-30 12-30 tablet by ity of 00:00: 05:59 mouth 2 [place] 00 :00 (two) Medical times Branch daily for 90 days. Indication s: deep vein thrombosis prevention , treatment to prevent recurrence of a blood clot in the lungs apixaban 5 2020-0 2020- No [id number] 5mg Take 1 [facility] ers mg tablet 9-30 12-30 tablet by ity of 00:00: 05:59 mouth 2 [place] 00 :00 (two) Medical times Branch daily for 90 days. Indication s: deep vein thrombosis prevention , treatment to prevent recurrence of a blood clot in the lungs apixaban 5 2020-0 2020- No [id number] 5mg Take 1 [facility] ers mg tablet 9-30 12-30 tablet by ity of 00:00: 05:59 mouth 2 [place] 00 :00 (two) Medical times Branch daily for 90 days. Indication s: deep vein thrombosis prevention , treatment to prevent recurrence of a blood clot in the lungs apixaban 5 2020-0 2020- No [id number] 5mg Take 1 [facility] ers mg tablet 9-30 12-30 tablet by ity of 00:00: 05:59 mouth 2 [place] 00 :00 (two) Medical times Branch daily for 90 days. Indication s: deep vein thrombosis prevention , treatment to prevent recurrence of a blood clot in the lungs apixaban 5 2019- No [id number] 5mg Take 1 [facility] ers mg tablet 9-30 12-30 tablet by ity of 00:00: 05:59 mouth 2 [place] 00 :00 (two) Medical times Branch daily for 90 days. Indication s: deep vein thrombosis prevention , treatment to prevent recurrence of a blood clot in the lungs apixaban 5 2019-2019- No [id number] 5mg Take 1 [facility] ers mg tablet 9-30 12-30 tablet by ity of 00:00: 05:59 mouth 2 [place] 00 :00 (two) Medical times Branch daily for 90 days. Indication s: deep vein thrombosis prevention , treatment to prevent recurrence of a blood clot in the lungs apixaban 5 No [id number] 5mg Take 1 [facility] ers mg tablet 9-30 12-30 tablet by ity of 00:00: 05:59 mouth 2 [place] 00 :00 (two) Medical times Branch daily for 90 days. Indication s: deep vein thrombosis prevention , treatment to prevent recurrence of a blood clot in the lungs escitalopra 2019- No [id number] 20mg Take 1 [facility] m oxalate 9-30 10-15 tablet by ity of 20 mg 00:00: 04:59 mouth [place] tablet 00 :00 daily for Medical 14 days. Branch furosemide 2019- No [id number] 40mg Take 1 [facility] 40 mg 9-30 10-15 tablet by ity of tablet 00:00: 04:59 mouth [place] 00 :00 daily for Medical 14 days. Branch metoprolol 2020- No [id number] 37.5mg Take 1.5 [facility] tartrate 25 9-30 10-15 tablets by i ty of mg tablet 00:00: 04:59 mouth 2 [place] 00 :[place] (two) Medical times Branch daily for 14 days. QUEtiapine 2019- No [id number] 300mg Take 3 [facility] 100 mg 9-30 10-15 tablets by ity of tablet 00:00: 04:59 mouth at [place] 00 :00 bedtime Medical for 14 Branch days. QUEtiapine 2019- 2020- No [id number] 50mg Take 1 [facility] 50 mg 9-30 10-15 tablet by ity of tablet 00:00: 04:59 mouth [place] 00 :00 every Medical morning Branch for 14 days. atorvastati 2019-2019- No [id number] 80mg Take 1 [facility] n 80 mg 9-30 10-15 tablet by ity of tablet 00:00: 04:59 mouth at [place] 00 :00 bedtime Medical for 14 Branch days. dapaglifloz 2019- No [id number] 10mg Take 1 [facility] in 9-30 10-15 tablet by ity of (FARXIGA) 00:00: 04:59 mouth [place] 10 mg 00 :00 daily for Medical tablet 14 days. Branch montelukast 2020- No [id number] 10mg Take 1 [facility] 10 mg 9-30 10-15 tablet by ity of tablet 00:00: 04:59 mouth [place] 00 :00 daily for Medical 14 days. Branch atomoxetine 2019- No [id number] 80mg Take 1 [facility] 80 mg 9-30 10-15 capsule by ity of capsule 00:00: 04:59 mouth [place] 00 :00 daily for Medical 14 days. Branch escitalopra 2020- No [id number] 20mg Take 1 [facility] m oxalate 9-30 10-15 tablet by ity of 20 mg 00:00: 04:59 mouth [place] tablet 00 :00 daily for Medical 14 days. Branch furosemide 2019-2019- No [id number] 40mg Take 1 [facility] 40 mg 9-30 10-15 tablet by ity of tablet 00:00: 04:59 mouth [place] 00 :00 daily for Medical 14 days. Branch metoprolol 2020- No [id number] 37.5mg Take 1.5 [facility] tartrate 25 9-30 10-15 tablets by i ty of mg tablet 00:00: 04:59 mouth 2 [place] 00 :00 (two) Medical times Branch daily for 14 days. QUEtiapine 2019- No [id number] 300mg Take 3 [facility] 100 mg 9-30 10-15 tablets by ity of tablet 00:00: 04:59 mouth at [place] 00 :00 bedtime Medical for 14 Branch days. QUEtiapine 2019- No [id number] 50mg Take 1 [facility] 50 mg 9-30 10-15 tablet by ity of tablet 00:00: 04:59 mouth [place] 00 :00 every Medical morning Branch for 14 days. atorvastati 2019- 2020- No [id number] 80mg Take 1 [facility] n 80 mg 9-30 10-15 tablet by ity of tablet 00:00: 04:59 mouth at [place] 00 :00 bedtime Medical for 14 Branch days. dapaglifloz 2019-2019- No [id number] 10mg Take 1 [facility] in 9-30 10-15 tablet by ity of (FARXIGA) 00:00: 04:59 mouth [place] 10 mg 00 :00 daily for Medical tablet 14 days. Branch montelukast 2019- 2020- No [id number] 10mg Take 1 [facility] 10 mg 9-30 10-15 tablet by ity of tablet 00:00: 04:59 mouth [place] 00 :00 daily for Medical 14 days. Branch atomoxetine 2019- No [id number] 80mg Take 1 [facility] 80 mg 9-30 10-15 capsule by ity of capsule 00:00: 04:59 mouth [place] 00 :00 daily for Medical 14 days. Branch escitalopra 2020- No [id number] 20mg Take 1 [facility] m oxalate 9-30 10-15 tablet by ity of 20 mg 00:00: 04:59 mouth [place] tablet 00 :00 daily for Medical 14 days. Branch furosemide 2019- No [id number] 40mg Take 1 [facility] 40 mg 9-30 10-15 tablet by ity of tablet 00:00: 04:59 mouth [place] 00 :00 daily for Medical 14 days. Branch metoprolol 2020- No [id number] 37.5mg Take 1.5 [facility] tartrate 25 9-30 10-15 tablets by i ty of mg tablet 00:00: 04:59 mouth 2 [place] 00 :00 (two) Medical times Branch daily for 14 days. QUEtiapine 2020- No [id number] 300mg Take 3 [facility] 100 mg 9-30 10-15 tablets by ity of tablet 00:00: 04:59 mouth at [place] 00 :00 bedtime Medical for 14 Branch days. QUEtiapine 2019-2019- No [id number] 50mg Take 1 [facility] 50 mg 9-30 10-15 tablet by ity of tablet 00:00: 04:59 mouth [place] 00 :00 every Medical morning Branch for 14 days. atorvastati 2019-2019- No [id number] 80mg Take 1 [facility] n 80 mg 9-30 10-15 tablet by ity of tablet 00:00: 04:59 mouth at [place] 00 :00 bedtime Medical for 14 Branch days. dapaglifloz 2019-2019- No [id number] 10mg Take 1 [facility] in 9-30 10-15 tablet by ity of (FARXIGA) 00:00: 04:59 mouth [place] 10 mg 00 :00 daily for Medical tablet 14 days. Branch montelukast 2019-2019- No [id number] 10mg Take 1 [facility] 10 mg 9-30 10-15 tablet by ity of tablet 00:00: 04:59 mouth [place] 00 :00 daily for Medical 14 days. Branch atomoxetine 2019- No [id number] 80mg Take 1 [facility] 80 mg 9-30 10-15 capsule by ity of capsule 00:00: 04:59 mouth [place] 00 :00 daily for Medical 14 days. Branch escitalopra 2019- No [id number] 20mg Take 1 [facility] m oxalate 9-30 10-15 tablet by ity of 20 mg 00:00: 04:59 mouth [place] tablet 00 :00 daily for Medical 14 days. Branch furosemide 2019- No [id number] 40mg Take 1 [facility] 40 mg 9-30 10-15 tablet by ity of tablet 00:00: 04:59 mouth [place] 00 :00 daily for Medical 14 days. Branch metoprolol 2019- No [id number] 37.5mg Take 1.5 [facility] tartrate 25 9-30 10-15 tablets by i ty of mg tablet 00:00: 04:59 mouth 2 [place] 00 :00 (two) Medical times Branch daily for 14 days. QUEtiapine 2020- No [id number] 300mg Take 3 [facility] 100 mg 9-30 10-15 tablets by ity of tablet 00:00: 04:59 mouth at [place] 00 :00 bedtime Medical for 14 Branch days. QUEtiapine 2019- No [id number] 50mg Take 1 [facility] 50 mg 9-30 10-15 tablet by ity of tablet 00:00: 04:59 mouth [place] 00 :00 every Medical morning Branch for 14 days. atorvastati 2019-2019- No [id number] 80mg Take 1 [facility] n 80 mg 9-30 10-15 tablet by ity of tablet 00:00: 04:59 mouth at [place] 00 :00 bedtime Medical for 14 Branch days. dapaglifloz 2019- No [id number] 10mg Take 1 [facility] in 9-30 10-15 tablet by ity of (FARXIGA) 00:00: 04:59 mouth [place] 10 mg 00 :00 daily for Medical tablet 14 days. Branch montelukast 2019- No [id number] 10mg Take 1 [facility] 10 mg 9-30 10-15 tablet by ity of tablet 00:00: 04:59 mouth [place] 00 :00 daily for Medical 14 days. Branch atomoxetine 2020- No [id number] 80mg Take 1 [facility] 80 mg 9-30 10-15 capsule by ity of capsule 00:00: 04:59 mouth [place] 00 :00 daily for Medical 14 days. Branch escitalopra 2019- No [id number] 20mg Take 1 [facility] m oxalate 9-30 10-15 tablet by ity of 20 mg 00:00: 04:59 mouth [place] tablet 00 :00 daily for Medical 14 days. Branch furosemide 2019- No [id number] 40mg Take 1 [facility] 40 mg 9-30 10-15 tablet by ity of tablet 00:00: 04:59 mouth [place] 00 :00 daily for Medical 14 days. Branch metoprolol 2019- No [id number] 37.5mg Take 1.5 [facility] tartrate 25 9-30 10-15 tablets by i ty of mg tablet 00:00: 04:59 mouth 2 [place] 00 :00 (two) Medical times Branch daily for 14 days. QUEtiapine 2020- No [id number] 300mg Take 3 [facility] 100 mg 9-30 10-15 tablets by ity of tablet 00:00: 04:59 mouth at [place] 00 :00 bedtime Medical for 14 Branch days. QUEtiapine 2020- No [id number] 50mg Take 1 [facility] 50 mg 9-30 10-15 tablet by ity of tablet 00:00: 04:59 mouth [place] 00 :00 every Medical morning Branch for 14 days. atorvastati 2019-2019- No [id number] 80mg Take 1 [facility] n 80 mg 9-30 10-15 tablet by ity of tablet 00:00: 04:59 mouth at [place] 00 :00 bedtime Medical for 14 Branch days. dapaglifloz 2019-2019- No [id number] 10mg Take 1 [facility] in 9-30 10-15 tablet by ity of (FARXIGA) 00:00: 04:59 mouth [place] 10 mg 00 :00 daily for Medical tablet 14 days. Branch montelukast 2019-2019- No [id number] 10mg Take 1 [facility] 10 mg 9-30 10-15 tablet by ity of tablet 00:00: 04:59 mouth [place] 00 :00 daily for Medical 14 days. Branch atomoxetine 2020- No [id number] 80mg Take 1 [facility] 80 mg 9-30 10-15 capsule by ity of capsule 00:00: 04:59 mouth [place] 00 :00 daily for Medical 14 days. Branch escitalopra 2019-2019- No [id number] 20mg Take 1 [facility] m oxalate 9-30 10-15 tablet by ity of 20 mg 00:00: 04:59 mouth [place] tablet 00 :00 daily for Medical 14 days. Branch furosemide 2019- No [id number] 40mg Take 1 [facility] 40 mg 9-30 10-15 tablet by ity of tablet 00:00: 04:59 mouth [place] 00 :00 daily for Medical 14 days. Branch metoprolol 2020- No [id number] 37.5mg Take 1.5 [facility] tartrate 25 9-30 10-15 tablets by i ty of mg tablet 00:00: 04:59 mouth 2 [place] 00 :00 (two) Medical times Branch daily for 14 days. QUEtiapine 2019- 2020- No [id number] 300mg Take 3 [facility] 100 mg 9-30 10-15 tablets by ity of tablet 00:00: 04:59 mouth at [place] 00 :00 bedtime Medical for 14 Branch days. QUEtiapine 2019- 2020- No [id number] 50mg Take 1 [facility] 50 mg 9-30 10-15 tablet by ity of tablet 00:00: 04:59 mouth [place] 00 :00 every Medical morning Branch for 14 days. atorvastati 2019- 2020- No [id number] 80mg Take 1 [facility] n 80 mg 9-30 10-15 tablet by ity of tablet 00:00: 04:59 mouth at [place] 00 :00 bedtime Medical for 14 Branch days. dapaglifloz 2019-2019- No [id number] 10mg Take 1 [facility] in 9-30 10-15 tablet by ity of (FARXIGA) 00:00: 04:59 mouth [place] 10 mg 00 :00 daily for Medical tablet 14 days. Branch montelukast 2019- 2020- No [id number] 10mg Take 1 [facility] 10 mg 9-30 10-15 tablet by ity of tablet 00:00: 04:59 mouth [place] 00 :00 daily for Medical 14 days. Branch atomoxetine 2019- No [id number] 80mg Take 1 [facility] 80 mg 9-30 10-15 capsule by ity of capsule 00:00: 04:59 mouth [place] 00 :00 daily for Medical 14 days. Branch escitalopra 2019-2019- No [id number] 20mg Take 1 [facility] m oxalate 9-30 10-15 tablet by ity of 20 mg 00:00: 04:59 mouth [place] tablet 00 :00 daily for Medical 14 days. Branch furosemide 2019-2019- No [id number] 40mg Take 1 [facility] 40 mg 9-30 10-15 tablet by ity of tablet 00:00: 04:59 mouth [place] 00 :00 daily for Medical 14 days. Branch metoprolol 2019- No [id number] 37.5mg Take 1.5 [facility] tartrate 25 9-30 10-15 tablets by i ty of mg tablet 00:00: 04:59 mouth 2 [place] 00 :00 (two) Medical times Branch daily for 14 days. QUEtiapine 2019- 2020- No [id number] 300mg Take 3 [facility] 100 mg 9-30 10-15 tablets by ity of tablet 00:00: 04:59 mouth at [place] 00 :00 bedtime Medical for 14 Branch days. QUEtiapine 2019- 2020- No [id number] 50mg Take 1 [facility] 50 mg 9-30 10-15 tablet by ity of tablet 00:00: 04:59 mouth [place] 00 :00 every Medical morning Branch for 14 days. atorvastati 2019- 2020- No [id number] 80mg Take 1 [facility] n 80 mg 9-30 10-15 tablet by ity of tablet 00:00: 04:59 mouth at [place] 00 :00 bedtime Medical for 14 Branch days. dapaglifloz 2019-2019- No [id number] 10mg Take 1 [facility] in 9-30 10-15 tablet by ity of (FARXIGA) 00:00: 04:59 mouth [place] 10 mg 00 :00 daily for Medical tablet 14 days. Branch montelukast 2019-0 2020- No [id number] 10mg Take 1 [facility] 10 mg 9-30 10-15 tablet by ity of tablet 00:00: 04:59 mouth [place] 00 :00 daily for Medical 14 days. Branch atomoxetine 2019-0 2020- No [id number] 80mg Take 1 [facility] 80 mg 9-30 10-15 capsule by ity of capsule 00:00: 04:59 mouth [place] 00 :00 daily for Medical 14 days. Branch vancomycin 2019-0 2020- No [id number] 125mg Take 2.5 [facility] 50 mg/mL 9-30 10-09 mL by ity of oral 00:00: 04:59 mouth 4 [place] solution 00 :00 (four) Medical times Branch daily for 8 days. vancomycin 2020-0 2020- No [id number] 125mg Take 2.5 [facility] 50 mg/mL 9-30 10-09 mL by ity of oral 00:00: 04:59 mouth 4 [place] solution 00 :00 (four) Medical times Branch daily for 8 days. vancomycin 2020-0 2020- No [id number] 125mg Take 2.5 [facility] 50 mg/mL 9-30 10-09 mL by ity of oral 00:00: 04:59 mouth 4 [place] solution 00 :00 (four) Medical times Branch daily for 8 days. vancomycin 2020-0 2020- No [id number] 125mg Take 2.5 [facility] 50 mg/mL 9-30 10-09 mL by ity of oral 00:00: 04:59 mouth 4 [place] solution 00 :00 (four) Medical times Branch daily for 8 days. vancomycin 2020-0 2020- No [id number] 125mg Take 2.5 [facility] 50 mg/mL 9-30 10-09 mL by ity of oral 00:00: 04:59 mouth 4 [place] solution 00 :00 (four) Medical times Branch daily for 8 days. proMETHazin 2019-0 Yes 12.5mg 12.5 mg, Univers e 12-18 Oral, ity of (PHENERGAN) 19:29: Q4HPRN, [place] tablet 12.5 27 Starting Medi carol mg Tue Branch 12/19/19 at 1429, Until Discontinu ed, Routine, Nausea and Vomiting (N/V) maalox:diph 2020-0 2020- No 15mL 15 mL, Uni vers enhydrAMINE 12-18 Oral, ity of :lidocaine 19:02: 19:34 ONCE, 1 [place] as 2 % viscous 00 :00 dose, Tue Med ical 1:1:1 12/19/19 at [place] (FIRST-MOUT 1415, HWASH BLM) Routine oral suspension 15 mL lidocaine 2020-0 2020- No 1{patch 1 Patch, Univers (LIDODERM) 12-18 } Topical, ity of 5 % (700 19:01: 07:34 Administer [place] mg/patch) 00 :00 over 12 Medical patch 1 Hours, [place] Patch ONCE, 1 dose, 12/19/19 at 1415, Routine iohexol 2020-0 2020- No 100mL 100 mL, Unive rs (OMNIPAQUE 12-17 Intravenou it y of 350 18:30: 18:30 s, ONCE, 1 [place] BULK-100 00 :00 dose, [facility] Medica l mL) 12/18/19 at [place] injection 1330, 100 mL Routine valsartan 2020-0 Yes 40mg 40 mg, Univer s (DIOVAN) 12-17 Oral, ity of tablet 40 14:00: DAILY, [place] mg 00 First dose Medical on [facility] 12/18/19 at 0900, Until Discontinu ed, Routine furosemide 2020-0 Yes 40mg 40 mg, Unive rs (LASIX) 12-17 Oral, ity of tablet 40 14:00: DAILY, [place] mg 00 First dose Medical on [facility] 12/18/19 at 0900, Until Discontinu ed, Routine QUEtiapine 2020-0 Yes 50mg 50 mg, Unive rs (SEROQUEL) 12-17 Oral, QAM, ity of tablet 50 14:00: First dose [place] mg 00 on [facility] 12/18/19 at [place] 0900, Until Discontinu ed, Routine montelukast 2020-0 Yes 10mg 10 mg, Univ ers (SINGULAIR) 12-17 Oral, ity of tablet 10 14:00: DAILY, [place] mg 00 First dose Medical on [facility] 12/18/19 at 0900, Until Discontinu ed, Routine escitalopra 2020-0 Yes 20mg 20 mg, [facility] ers m oxalate 12-17 Oral, ity of (LEXAPRO) 14:00: DAILY, [place] tablet 20 00 First dose Medi carol mg on Wed Branch 12/18/19 at 0900, Until Discontinu ed, Routine aspirin 2020-0 Yes 81mg 81 mg, [facility] chewable 12-17 Oral, ity of tablet 81 14:00: DAILY, [place] mg 00 First dose Medical on [facility] Branch 12/18/19 at 0900, Until Discontinu ed, Routine amLODIPine 2019-0 2020- No 10mg 10 mg, [facility] ers (NORVASC) 12-17 Oral, ity of tablet 10 14:00: 18:26 DAILY, [place] mg 00 :48 First dose Medical on [facility] Branch 12/18/19 at 0900, Until Discontinu ed, Routine vancomycin 2020-0 Yes 125mg 125 mg, Uni vers (FIRVANQ) 12-17 Oral, QID, ity of 50 mg/mL 13:00: First dose [place] oral 00 (after Medical solution last Branch 125 mg modificati on) on [facility] 12/18/19 at 0800, Until Discontinu ed, Routine
Reason for Anti-Infec tive: Documented Infection< br>Documen kenroy Infection Site: Abdominal< br>Duratio n of Therapy: 10 days Sliding 2019-0 Yes Subcutaneo [facility] Scale 12-17 us, TID ity of Insulin - 13:00: MEALS+HS, [place] as Lispro 00 First dose Medical (HumaLOG) + on Wed [facility] 12/18/19 at Testing 0800, Until Discontinu ed, Routine apixaban 2020-0 Yes 1291 5mg 5 mg, Univers (ELIQUIS) 12-17 Oral, BID, ity of tablet 5 mg 13:00: First dose [place] 00 on [facility] Medical 12/18/19 at Branch 0800, Until Discontinu ed, Routine magnesium 2019-0 2020- No 4000mg 4,000 mg, [facility] sulfate in 12-17 IV ity of water 4 12:15: 13:18 Infusion, [place] gram/50 mL 00 :00 ONCE, 1 Medica l (8 %) 4,000 dose, Mon Bra nch mg 12/18/19 at [place] 0715 traMADoL 2019-0 2020- No 100mg 100 mg, Univ ers (ULTRAM) 12-17 Oral, ity of tablet 100 07:10: 13:30 Q6HPRN, 2 [place] mg 46 :00 doses, Medical Starting Branch Wed12/18/19 at 0210, Until Wed12/18/19 at 0830, Routine, Pain (scale 7-10) metoprolol 2019-2019- No 25mg 25 mg, [facility] ers tartrate 12-17 Oral, BID, ity of (LOPRESSOR) 05:00: 12:13 First dose [place] tablet 25 00 :37 (after Medical mg last Branch modificati on) on Wed12/18/19 at 0000, Until Discontinu ed, Routine acetaminoph Yes 1{tbl} 1 tablet, Univers en-codeine 12-17 Oral, ity of (TYLENOL 04:52: Q6HPRN, [place] #3) 300-30 55 Starting Medic al mg tablet 1 [facility] tablet 12/17/19 at 2352, Until Discontinu ed, Routine, Pain (scale 4-6) traMADol 2019-0 Yes 50mg Take 50 mg Uni vers 100 mg 12-17 by mouth 3 ity of capsule 04:52: (three) [place] 14 times Medical daily. Branch traMADol 2019-0 Yes 50mg Take 50 mg Uni vers 100 mg 12-17 by mouth 3 ity of capsule 04:52: (three) [place] 14 times Medical daily. Branch vancomycin 2019- No 125mg 125 mg, Un [facility] (FIRVANQ) 12-17 Oral, QID, ity of 50 mg/mL 03:15: 12:03 First dose [place] oral 00 :35 on [place] Medical solution 12/17/19 at [facility] h 125 mg 2215, Until Discontinu ed, Routine
Reason for Anti-Infec tive: Documented Infection< br>Documen kenroy Infection Site: Abdominal< br>Duratio n of Therapy: 7 days metroNIDAZO 2019-0 2020- No 500mg 500 mg, U nivers LE (FLAGYL) 12-17 Oral, Q8H, i ty of tablet 500 03:00: 03:09 9 doses, [place] mg 00 :07 First dose Medical on [place] Branch 9/27/20 at 2200, Last dose on Wed12/20/19 at 1400, Routine
Reason for Anti-Infec tive: Documented Infection< br>Documen kenroy Infection Site: Abdominal< br>Duratio n of Therapy: 7 days maalox:diph 2020-0 2020- No 15mL 15 mL, Uni vers enhydrAMINE 12-17 Oral, ity of :lidocaine 02:50: 05:30 ONCE, 1 [place] as 2 % viscous 00 :00 dose, [facility] ical 1:1:1 12/17/19 at [place] (FIRST-MOUT 2199, HWASH BLM) Routine oral suspension 15 mL glucagon 2020-0 Yes 1mg 1 mg, [facility] (GLUCAGEN 12-17 Intramuscu ity of DIAGNOSTIC 02:34: lar, PRN, [place] KIT) 12 Starting Medical injection 1 [facility] 12/17/19 at 2133, Until Discontinu ed, MADDIE, Blood Glucose < or = 70 mg/dL and patient is unable to swallow or has mental changes. dextrose 50 2020-0 Yes 25mL 25 mL, Univ ers % in water 12-17 Slow IV ity of (D50W) 02:34: Push, PRN, [place] injection 12 Starting Medica l 25 mL [facility] 12/17/19 at 2133, Until Discontinu ed, MADDIE, Blood Glucose < or = 70 mg/dL and patient is unable to swallow or has mental status changes. QUEtiapine 2020-0 Yes 300mg 300 mg, Uni vers (SEROQUEL) 12-17 Oral, QHS, ity of tablet 300 02:15: First dose [place] mg 00 on [facility] 12/17/19 at [place] 2114, Until Discontinu ed, Routine atorvastati 2020-0 Yes 80mg 80 mg, Univ ers n (LIPITOR) 12-17 Oral, QHS, it y of tablet 80 02:15: First dose [place] mg 00 on [facility] 12/17/19 at [place] 2114, Until Discontinu ed, Routine azilsartan 2020-0 Yes Take by Univ ers med-chlorth 12-17 mouth ity of alidone 02:02: daily. [place] (EDARBYCLOR 05 Medical ) 40-12.5 [place] mg Tab dapaglifloz 2019-0 Yes Take by Uni vers in 12-17 mouth ity of (FARXIGA) 02:02: daily. [place] 10 mg 05 Medical tablet Branch azilsartan 2019-0 Yes Take by [facility] ers med-chlorth 12-17 mouth ity of alidone 02:02: daily. [place] (EDARBYCLOR 05 Medical ) 40-12.5 Branch mg Tab dapaglifloz 2020-0 Yes Take by Uni vers in 12-17 mouth ity of (FARXIGA) 02:02: daily. [place] 10 mg 05 Medical tablet Branch acetaminoph 2019-0 Yes 650mg 650 mg, Un [place] en 12-17 Oral, ity of (TYLENOL) 02:00: Q6HPRN, [place] tablet 650 06 Starting Medic al mg [facility] 12/17/19 at 2100, Until Discontinu ed, Routine, Pain (scale 1-3) morpHINE 2019-0 2020- No 4mg 4 mg, Slow [facility] [place] injection 4 12-16 IV Push, ity of mg 23:15: 22:08 ONCE, 1 [place] 00 :00 dose, [facility] 12/17/19 at Branch 1815, STAT nitroglycer 2019-0 2020- No .4mg 0.4 mg, [facility] [place] in 12-16 Sublingual ity of (NITROSTAT) 23:00: 02:21 , ONCE, 1 [place] sublingual 00 :00 dose, [place] Medi carol tablet 0.4 12/17/19 at [facility] [place] mg 1800, MADDIE morpHINE 2020-0 2020- No 4mg 4 mg, Slow [place] injection 4 12-16 IV Push, ity of mg 22:00: 21:10 ONCE, 1 [place] 00 :00 dose, [facility] 12/17/19 at Branch 1700, STAT diltiazem 2020-0 2020- No 15mg 15 mg, IV [facility] [place] (CARDIZEM 12-16 Push, ity of IV) 21:45: 20:35 ONCE, 1 [place] injection 00 :00 dose, [place] Medic al 15 mg 12/17/19 at Branch 1645, STAT
Fa culty member approving Restricted medication : HOMERO MCNEILL traMADol 2020-0 Yes 50mg Take 50 mg Uni vers 100 mg 12-05 by mouth 3 ity of capsule 20:31: (three) [place] 13 times Medical daily. Branch amLODIPine 2020-0 Yes 10mg Take 1 Unive rs 10 mg 9-16 tablet by ity of tablet 00:00: mouth [place] 00 daily. Medical Branch apixaban 5 2020-0 Yes 1291 5mg Take 1 Unive rs mg tablet 9-16 tablet by ity o f 00:00: mouth 2 (two) Medical times Branch daily. Indication s: a clot in the lung aspirin 81 2020-0 Yes [id number] 81mg Take 1 U nivers mg chewable 9-16 tablet by ity of tablet 00:00: mouth [place] 00 daily. Medical Branch atomoxetine 2020-0 Yes 80mg Take 1 Univ ers 80 mg 9-16 capsule by ity of capsule 00:00: mouth [place] 00 daily. Medical Branch atorvastati 2020-0 Yes 80mg Take 1 Univ ers n 80 mg 9-16 tablet by ity of tablet 00:00: mouth at [place] 00 bedtime. Medical Branch metoprolol 2020-0 Yes 25mg Take 1 Unive rs tartrate 25 9-16 tablet by ity of mg tablet 00:00: mouth 2 (two) Medical times Branch daily. montelukast 2020-0 Yes 10mg Take 1 Univ ers 10 mg 9-16 tablet by ity of tablet 00:00: mouth [place] 00 daily. Medical Branch QUEtiapine 2020-0 Yes 300mg Take 1 Univ ers 300 mg 9-16 tablet by ity of tablet 00:00: mouth at [place] 00 bedtime. Medical Branch QUEtiapine 2020-0 Yes 50mg Take 1 Unive rs 50 mg 9-16 tablet by ity of tablet 00:00: mouth [place] 00 every Medical morning. Branch amLODIPine 2020-0 Yes 10mg Take 1 Unive rs 10 mg 9-16 tablet by ity of tablet 00:00: mouth [place] 00 daily. Medical Branch apixaban 5 2020-0 Yes 1291 5mg Take 1 Unive rs mg tablet 9-16 tablet by ity o f 00:00: mouth 2 (two) Medical times Branch daily. Indication s: a clot in the lung aspirin 81 2020-0 Yes [id number] 81mg Take 1 U nivers mg chewable 9-16 tablet by ity of tablet 00:00: mouth [place] 00 daily. Medical Branch atomoxetine 2020-0 Yes 80mg Take 1 Univ ers 80 mg 9-16 capsule by ity of capsule 00:00: mouth [place] 00 daily. Medical Branch atorvastati 2020-0 Yes 80mg Take 1 Univ ers n 80 mg 9-16 tablet by ity of tablet 00:00: mouth at [place] 00 bedtime. Medical Branch metoprolol 2020-0 Yes 25mg Take 1 Unive rs tartrate 25 9-16 tablet by ity of mg tablet 00:00: mouth 2 [place] 00 (two) Medical times Branch daily. montelukast 2020-0 Yes 10mg Take 1 Univ ers 10 mg 9-16 tablet by ity of tablet 00:00: mouth [place] 00 daily. Medical Branch QUEtiapine 2020-0 Yes 300mg Take 1 Univ ers 300 mg 9-16 tablet by ity of tablet 00:00: mouth at [place] 00 bedtime. Medical Branch QUEtiapine 2020-0 Yes 50mg Take 1 Unive rs 50 mg 9-16 tablet by ity of tablet 00:00: mouth [place] 00 every Medical morning. Branch metroNIDAZO 2020-0 2020- No [id number] 500mg Take 1 [facility] LE 500 mg 9-12-20 tablet by ity of tablet 00:00: 04:59 mouth [place] 00 :00 every 8 Medical (eight) Branch hours for 14 days. metroNIDAZO 2020-0 2020- No [id number] 500mg Take 1 [facility] LE 500 mg 9-04 01- tablet by ity of tablet 00:00: 04:59 mouth [place] 00 :00 every 8 Medical (eight) Branch hours for 14 days. amLODIPine 2020-0 2020- No 10mg Take 1 Univ ers 10 mg -05 12-30 tablet by ity of tablet 00:00: 00:00 mouth [place] 00 :00 daily. Medical Branch apixaban 5 2019-0 2020- No 1291 5mg Take 1 Univ ers mg tablet 12-0530 tablet by ity of 00:00: 00:00 mouth 2 [place] 00 :00 (two) Medical times Branch daily. Indication s: a clot in the lung aspirin 81 2020-0 2020- No [id number] 81mg Take 1 [facility] mg chewable -30 tablet by it y of tablet 00:00: 00:00 mouth [place] 00 :00 daily. Medical Branch atomoxetine 2020-0 2020- No 80mg Take 1 Uni vers 80 mg -30 capsule by ity of capsule 00:00: 00:00 mouth [place] 00 :00 daily. Medical Branch atorvastati 2020-0 2020- No 80mg Take 1 Uni vers n 80 mg 12-05 tablet by ity of tablet 00:00: 00:00 mouth at [place] 00 :00 bedtime. Medical Branch metoprolol 2019-0 2020- No 25mg Take 1 Univ ers tartrate 25 12-05 tablet by it y of mg tablet 00:00: 00:00 mouth 2 [place] 00 :00 (two) Medical times Branch daily. montelukast 2020-0 2020- No 10mg Take 1 Uni vers 10 mg 12-05 tablet by ity of tablet 00:00: 00:00 mouth [place] 00 :00 daily. Medical Branch QUEtiapine 2019-0 2020- No 300mg Take 1 Uni vers 300 mg 12-05 tablet by ity of tablet 00:00: 00:00 mouth at [place] 00 :00 bedtime. Medical Branch QUEtiapine 2019-0 2020- No 50mg Take 1 Univ ers 50 mg 12-05 tablet by ity of tablet 00:00: 00:00 mouth [place] 00 :00 every Medical morning. Branch metroNIDAZO 2020-0 2020- No [id number] 500mg Take 1 [facility] LE 500 mg 12-05 tablet by ity of tablet 00:00: 00:00 mouth [place] 00 :00 every 8 Medical (eight) Branch hours for 14 days. chlorthalid 2020-0 2020- No 25mg Take 1 Uni vers one 25 mg 12-05 tablet by ity of tablet 00:00: 00:00 mouth [place] 00 :00 daily. Medical Branch HYDROcodone 2020-0 Yes 1{tbl} Take [address] -acetaminop 8-18 tablet by [place] (NORCO 00:00: mouth Medica l 10-325) 00 every 6 Center 10-325 mg (six) per tablet hours as needed for pain. HYDROcodone 2020-0 Yes 1{tbl} Take [address] -acetaminop 8-18 tablet by [place] (NORCO 00:00: mouth Medica l 10-325) 00 every 6 Center 10-325 mg (six) per tablet hours as needed for pain. apixaban 2020-0 Yes 5mg 5 mg, Univers (ELIQUIS) 10-26 Oral, BID, ity of tablet 5 mg 13:00: First dose [place] 00 on Wed Medical 10/27/19 at Branch 0800, Until Discontinu ed, Routine traMADol 2020-0 Yes 50mg Take 50 mg Uni vers 100 mg -04 by mouth 3 ity of capsule 01:37: (three) [place] 14 times Medical daily. Branch traMADol 2020-0 Yes 50mg Take 50 mg Uni vers 100 mg - by mouth 3 ity of capsule 01:37: (three) [place] 14 times Medical daily. Branch traMADol 2020-0 Yes 50mg Take 50 mg Uni vers 100 mg - by mouth 3 ity of capsule 01:37: (three) [place] 14 times Medical daily. Branch montelukast 2019- 2020- No 20mg Take 20 mg Univers 10 mg 10-22 by mouth. ity of tablet 22:19: 00:00 [place] 27 :00 Medical Branch azilsartan 2019-0 2020- No Take by Uni vers med-chlorth 10-22 mouth ity of alidone 20:36: 00:00 daily. [place] (EDARBYCLOR 45 :00 Medical ) 40-12.5 Branch mg Tab potassium 2019-2019- No 20meq Take 20 Uni vers chloride 10 10-22 mEq by ity o f mEq CR 20:36: 00:00 mouth [place] tablet 45 :00 daily. Medical Branch dapaglifloz 2020- No 40mg Take 40 mg Univers in 10-22 by mouth ity of (FARXIGA) 20:36: 00:00 daily. [place] 10 mg 45 :00 Medical tablet Branch apixaban 0 2020- No 5mg Take 5 mg Uni vers (ELIQUIS) 5 10-22 by mouth 2 i ty of mg tablet 20:36: 00:00 (two) [place] 45 :00 times Medical daily. Branch atomoxetine 2019- 2020- No 80mg Take 80 mg Univers (STRATTERA) 10-22 by mouth ity of 80 mg 20:36: 00:00 daily. [place] capsule 45 :00 Medical Branch QUEtiapine 2019-0 2020- No 50mg Take 50 mg Univers (SEROQUEL) 10-22 by mouth ity of 50 mg 20:36: 00:00 every [place] tablet 45 :00 morning. Medical Branch QUEtiapine 2019-0 2020- No 300mg Take 300 U nivers (SEROQUEL) 10-22 08-03 mg by ity of 200 mg 20:36: 00:00 mouth [place] tablet 45 :00 every Medical evening. Branch escitalopra 2019-0 2020- No 20mg Take 20 mg Univers m oxalate 10-22- by mouth ity o f 20 mg 20:36: 00:00 daily. [place] tablet 45 :00 Medical Branch metoprolol 2019-0 2020- No 25mg Take 25 mg [facility] tartrate 25 10-22- by mouth ity of mg tablet 20:36: 00:00 daily. [place] 45 :00 Medical Branch furosemide 2019-0 2020- No 40mg Take 40 mg Univers 40 mg 10-22- by mouth ity of tablet 20:36: 00:00 daily. [place] 45 :00 Medical Branch furosemide 2019-0 Yes [id number] 40mg Take 1 U nivers 40 mg 8-03 tablet by ity of tablet 00:00: mouth [place] 00 daily. Medical Branch escitalopra 2019-0 Yes [id number] 20mg Take 1 Univers m oxalate 8-03 tablet by ity o f 20 mg 00:00: mouth [place] tablet 00 daily. Medical Branch potassium 2020-0 Yes [id number] 20meq Take 2 U nivers chloride 10 8-03 tablets by it y of mEq CR 00:00: mouth [place] tablet 00 daily. Medical Branch furosemide 2019-0 Yes [id number] 40mg Take 1 U nivers 40 mg 8-03 tablet by ity of tablet 00:00: mouth [place] 00 daily. Medical Branch escitalopra 2020-0 Yes [id number] 20mg Take 1 Univers m oxalate 8-03 tablet by ity o f 20 mg 00:00: mouth [place] tablet 00 daily. Medical Branch potassium 2020-0 Yes [id number] 20meq Take 2 U nivers chloride 10 8-03 tablets by it y of mEq CR 00:00: mouth [place] tablet 00 daily. Medical Branch furosemide 2020-0 Yes [id number] 40mg Take 1 U nivers 40 mg 8-03 tablet by ity of tablet 00:00: mouth [place] 00 daily. Medical Branch escitalopra 2019-0 Yes [id number] 20mg Take 1 Univers m oxalate 8-03 tablet by ity o f 20 mg 00:00: mouth [place] tablet 00 daily. Medical Branch potassium 2020-0 Yes [id number] 20meq Take 2 U nivers chloride 10 8-03 tablets by it y of mEq CR 00:00: mouth [place] tablet 00 daily. Medical Branch furosemide 2020-0 Yes [id number] 40mg Take 1 U nivers 40 mg 8-03 tablet by ity of tablet 00:00: mouth [place] 00 daily. Medical Branch escitalopra 2020-0 Yes [id number] 20mg Take 1 Univers m oxalate 8-03 tablet by ity o f 20 mg 00:00: mouth [place] tablet 00 daily. Medical Branch potassium 2020-0 Yes [id number] 20meq Take 2 U nivers chloride 10 8-03 tablets by it y of mEq CR 00:00: mouth [place] tablet 00 daily. Medical Branch furosemide 2020-0 Yes [id number] 40mg Take 1 U nivers 40 mg 8-03 tablet by ity of tablet 00:00: mouth [place] 00 daily. Medical Branch escitalopra 2020-0 Yes [id number] 20mg Take 1 Univers m oxalate 8-03 tablet by ity o f 20 mg 00:00: mouth [place] tablet 00 daily. Medical Branch potassium 2020-0 Yes [id number] 20meq Take 2 U nivers chloride 10 8-03 tablets by it y of mEq CR 00:00: mouth [place] tablet 00 daily. Medical Branch furosemide 2020-0 Yes [id number] 40mg Take 1 U nivers 40 mg 8-03 tablet by ity of tablet 00:00: mouth [place] 00 daily. Medical Branch escitalopra 2020-0 Yes [id number] 20mg Take 1 Univers m oxalate 8-03 tablet by ity o f 20 mg 00:00: mouth [place] tablet 00 daily. Medical Branch potassium 2020-0 Yes [id number] 20meq Take 2 U nivers chloride 10 8-03 tablets by it y of mEq CR 00:00: mouth [place] tablet 00 daily. Medical Branch potassium 2020-0 Yes [id number] 20meq Take 2 U nivers chloride 10 8-03 tablets by it y of mEq CR 00:00: mouth [place] tablet 00 daily. Medical Branch potassium 2020-0 Yes [id number] 20meq Take 2 U nivers chloride 10 8-03 tablets by it y of mEq CR 00:00: mouth [place] tablet 00 daily. Medical Branch potassium 2020-0 Yes [id number] 20meq Take 2 U nivers chloride 10 8-03 tablets by it y of mEq CR 00:00: mouth [place] tablet 00 daily. Medical Branch potassium 2020-0 Yes [id number] 20meq Take 2 U nivers chloride 10 8-03 tablets by it y of mEq CR 00:00: mouth [place] tablet 00 daily. [facility] Branch potassium 2020-0 Yes [id number] 20meq Take 2 U nivers chloride 10 8-03 tablets by it y of mEq CR 00:00: mouth [place] tablet 00 daily. Medical Branch potassium 2020-0 Yes [id number] 20meq Take 2 U nivers chloride 10 8-03 tablets by it y of mEq CR 00:00: mouth [place] tablet 00 daily. [facility] Branch potassium 2020-0 Yes [id number] 20meq Take 2 U nivers chloride 10 8-03 tablets by it y of mEq CR 00:00: mouth [place] tablet 00 daily. [facility] Branch potassium 2020-0 Yes [id number] 20meq Take 2 U nivers chloride 10 8-03 tablets by it y of mEq CR 00:00: mouth [place] tablet 00 daily. [facility] Branch potassium 2020-0 Yes [id number] 20meq Take 2 U nivers chloride 10 8-03 tablets by it y of mEq CR 00:00: mouth [place] tablet 00 daily. [facility] Branch potassium 2020-0 Yes [id number] 20meq Take 2 U nivers chloride 10 8-03 tablets by it y of mEq CR 00:00: mouth [place] tablet 00 daily. [facility] Branch potassium 2020-0 Yes [id number] 20meq Take 2 U nivers chloride 10 8-03 tablets by it y of mEq CR 00:00: mouth [place] tablet 00 daily. [facility] Branch potassium 2020-0 Yes [id number] 20meq Take 2 U nivers chloride 10 8-03 tablets by it y of mEq CR 00:00: mouth [place] tablet 00 daily. [facility] Branch potassium 2020-0 Yes [id number] 20meq Take 2 U nivers chloride 10 8-03 tablets by it y of mEq CR 00:00: mouth [place] tablet 00 daily. [facility] Branch potassium 2020-0 Yes 20meq Take [address] [facility] chloride 8-03 mEq by [facility] (KLOR-CON) 00:00: mouth. Medic al 10 MEQ CR 00 Center tablet potassium 2020-0 Yes 20meq Take [address] [facility] chloride 8-03 mEq by [facility] (KLOR-CON) 00:00: mouth. Medic al 10 MEQ CR 00 Center tablet potassium No [id number] 20meq Take 2 [facility] chloride 10 10-22 05-07 tablets by i ty of mEq CR 00:00: 00:00 mouth [place] tablet 00 :00 daily. Medical Branch furosemide 2019- No [id number] 40mg Take 1 [facility] 40 mg 10-22 tablet by ity of tablet 00:00: 00:00 mouth [place] 00 :00 daily. Medical Branch escitalopra No [id number] 20mg Take 1 [facility] m oxalate 10-22 tablet by ity of 20 mg 00:00: 00:00 mouth [place] tablet 00 :00 daily. Medical Branch apixaban 2019- No 1293 Take 2 Univer s (ELIQUIS) 5 10-22 tablets by i ty of mg tablet 00:00: 04:59 mouth 2 [place] 00 :00 (two) Medical times Branch daily for 5 days, THEN 1 tablet daily for 14 days. Indication s: treatment to prevent a blood clot in the lung apixaban No 1293 Take 2 Univer s (ELIQUIS) 5 10-22 tablets by i ty of mg tablet 00:00: 04:59 mouth 2 [place] 00 :00 (two) Medical times Branch daily for 5 days, THEN 1 tablet daily for 14 days. Indication s: treatment to prevent a blood clot in the lung apixaban 2019- No 1293 Take 2 Univer s (ELIQUIS) 5 10-22 tablets by i ty of mg tablet 00:00: 04:59 mouth 2 [place] 00 :00 (two) Medical times Branch daily for 5 days, THEN 1 tablet daily for 14 days. Indication s: treatment to prevent a blood clot in the lung amLODIPine 2019- No [id number] 5mg Take 1 [facility] 5 mg tablet 10-22 tablet by it y of 00:00: 04:59 mouth [place] 00 :00 daily for Medical 14 days. Branch aspirin 81 2019- No [id number] 81mg Take 1 [facility] mg chewable 10-22 tablet by it y of tablet 00:00: 04:59 mouth [place] 00 :00 daily for Medical 14 days. Branch atomoxetine No [id number] 80mg Take 1 [facility] (STRATTERA) 10-22 capsule by i ty of 80 mg 00:00: 04:59 mouth [place] capsule 00 :00 daily for Medical 14 days. Branch azilsartan 2019- No [id number] 1{tbl} Take 1 [facility] med-chlorth 10-22 tablet by it y of alidone 00:00: 04:59 mouth [place] (EDARBYCLOR 00 :00 daily for Med ical ) 40-12.5 14 days. Branch mg Tab atorvastati 2019- No [id number] 40mg Take 1 Univers n 40 mg 10-22 tablet by ity of tablet 00:00: 04:59 mouth [place] 00 :00 every Medical evening Branch for 14 days. metoprolol 2019- No [id number] 25mg Take 1 [facility] tartrate 25 10-22 tablet by it y of mg tablet 00:00: 04:59 mouth [place] 00 :00 daily for Medical 14 days. Branch QUEtiapine 2019- No [id number] 50mg Take 1 [facility] (SEROQUEL) 10-22 tablet by ity of 50 mg 00:00: 04:59 mouth [place] tablet 00 :00 every Medical morning Branch for 14 days. QUEtiapine 2019- No [id number] 300mg Take 3 [facility] (SEROQUEL) 10-22 tablets by it y of 100 mg 00:00: 04:59 mouth [place] tablet 00 :00 every Medical evening Branch for 14 days. dapaglifloz 2019-2019- No [id number] 40mg Take 4 Univers in 10-22 tablets by ity of (FARXIGA) 00:00: 04:59 mouth [place] 10 mg 00 :00 daily for Medical tablet 14 days. Branch montelukast 2019- 2020- No [id number] 10mg Take 1 [facility] 10 mg 10-22 tablet by ity of tablet 00:00: 04:59 mouth [place] 00 :00 daily for Medical 14 days. Branch amLODIPine 2019- No [id number] 5mg Take 1 [facility] 5 mg tablet 10-22 tablet by it y of 00:00: 04:59 mouth [place] 00 :00 daily for Medical 14 days. Branch aspirin 81 2019- No [id number] 81mg Take 1 [facility] mg chewable 10-22 tablet by it y of tablet 00:00: 04:59 mouth [place] 00 :00 daily for Medical 14 days. Branch atomoxetine 2019- No [id number] 80mg Take 1 Univers (STRATTERA) 10-22 capsule by i ty of 80 mg 00:00: 04:59 mouth [place] capsule 00 :00 daily for Medical 14 days. Branch azilsartan 2019- No [id number] 1{tbl} Take 1 Univers med-chlorth 10-22 tablet by it y of alidone 00:00: 04:59 mouth [place] (EDARBYCLOR 00 :00 daily for Med ical ) 40-12.5 14 days. Branch mg Tab atorvastati 2019- No [id number] 40mg Take 1 Univers n 40 mg 10-22 tablet by ity of tablet 00:00: 04:59 mouth [place] 00 :00 every Medical evening Branch for 14 days. metoprolol 2019- No [id number] 25mg Take 1 [facility] tartrate 25 10-22 tablet by it y of mg tablet 00:00: 04:59 mouth [place] 00 :00 daily for Medical 14 days. Branch QUEtiapine 2019- No [id number] 50mg Take 1 Univers (SEROQUEL) 10-22 tablet by ity of 50 mg 00:00: 04:59 mouth [place] tablet 00 :00 every Medical morning Branch for 14 days. QUEtiapine 2019-2019- No [id number] 300mg Take 3 Univers (SEROQUEL) 10-22 tablets by it y of 100 mg 00:00: 04:59 mouth [place] tablet 00 :00 every Medical evening Branch for 14 days. dapaglifloz 2019-2019- No [id number] 40mg Take 4 Univers in 10-22 tablets by ity of (FARXIGA) 00:00: 04:59 mouth [place] 10 mg 00 :00 daily for Medical tablet 14 days. Branch montelukast 2019-2019- No [id number] 10mg Take 1 [facility] 10 mg 10-22 tablet by ity of tablet 00:00: 04:59 mouth [place] 00 :00 daily for Medical 14 days. Branch montelukast 2019-0 2020- No [id number] 20mg Take 2 [facility] 10 mg 10-22 tablets by ity of tablet 00:00: 00:00 mouth [place] 00 :00 daily for Medical 14 days. [place] iohexol 2019-0 2020- No 120mL 120 mL, Unive rs (OMNIPAQUE 10-21 Intravenou it y of 350 21:00: 21:00 s, ONCE, 1 [place] BULK-100 00 :00 dose, [facility] mL) 10/22/19 at [place] injection 1600, 120 mL Routine metoprolol 2020-0 Yes 25mg 25 mg, Unive rs tartrate 10-21 Oral, BID, ity o f (LOPRESSOR) 01:00: First dose [place] tablet 25 00 on [facility] Medical mg 10/21/19 at Branch 2000, Until Discontinu ed, Routine HYDROcodone 2020-0 Yes 1{tbl} 1 tablet, Univers -acetaminop 10-20 Oral, ity of hen (NORCO) 18:17: Q6HPRN, Jorge as 10-325 mg 52 Starting Medica l tablet 1 [facility] 10/21/19 Bran h tablet at 1317, Until Discontinu ed, Routine, Pain (scale 4-6) metoprolol 2019-0 2019- No 5mg 5 mg, IV Un [place] (LOPRESSOR) 10-20 Push, ity of injection 5 18:00: 17:38 ONCE, 1 [place] mg 00 :00 dose, [facility] Medical 10/21/19 at [place] 1300, Routine QUEtiapine 2020-0 Yes 50mg 50 mg, Unive rs (SEROQUEL) 10-20 Oral, QAM, ity of tablet 50 14:00: First dose [place] mg 00 on [facility] Medical 10/21/19 at Branch 0900, Until Discontinu ed, Routine escitalopra 2020-0 Yes 20mg 20 mg, Univ ers m oxalate 10-20 Oral, ity of (LEXAPRO) 14:00: DAILY, [place] tablet 20 00 First dose Medi carol mg on [facility] Branch 10/21/19 at 0900, Until Discontinu ed, Routine QUEtiapine 2020-0 Yes 300mg 300 mg, Uni vers (SEROQUEL) 10-20 Oral, QHS, ity of tablet 300 02:00: First dose [place] mg 00 on Wed Medical 10/20/19 at Branch 2100, Until Discontinu ed, Routine atorvastati 2020-0 Yes 40mg 40 mg, Univ ers n (LIPITOR) 8 Oral, QHS, it y of tablet 40 02:00: First dose [place] mg 00 on Wed Medical 10/20/19 at Branch 2100, Until Discontinu ed, Routine apixaban 2019-0 2020- No 10mg 10 mg, Univer s (ELIQUIS) 10-19 Oral, BID, ity of tablet 10 23:15: 12:59 14 doses, [place] mg 00 :00 First dose Medical on Wed [place] 10/20/19 at 1815, Last dose on Wed10/26/19 at 2000, Routine Sliding 2020-0 Yes Subcutaneo Univ ers Scale 10-19 us, TID ity of Insulin - 22:00: MEALS+HS, [place] as Aspart 00 First dose Medical (NOVOLOG) + on Wed [place] Fsbg 10/20/19 at Testing 1700, Until Discontinu ed, Routine KCL 2020-0 Yes 10meq 10 mEq, Univers (KLOR-CON 10-19 Oral, ity of M10) tablet 19:00: DAILY, [place] 10 mEq 00 First dose Medical on Wed [place] 10/20/19 at 1400, Until Discontinu ed, Routine traMADol 2019-0 2020- No 50mg 50 mg, Univer s (ULTRAM) 10-19 Oral, ity of tablet 50 18:49: 18:18 Q6HPRN, [place] mg 43 :42 Starting Medical [facility] 10/20/19 at 1349, Until 10/21/19 at 1318, Routine, Pain (scale 4-6) sulfur 2020-0 2020- No Intravenou Univ ers hexafluorid 10-19 s, TITRATE i ty of e microsphr 16:49: 16:49 - FOR [place] (LUMASON) 43 :43 PROCEDURE Medic al injection USE, 1 Branch dose, Starting Wed10/20/19 at 1149, Until Wed10/20/19 at 1149, Routine heparin 2020-0 2020- No 5000U 5,000 Univers 1000 10-19 Units, IV ity of unit/mL 14:30: 16:01 Push, [place] injection 00 :00 ONCE, 1 Medical Soln 5,000 dose, Fri Bran ch Units 10/20/19 at 0930, Routine heparin 2020-0 2020- No 1300U/h 1,300 Unive rs 25,000 10-19 07-31 Units/hr ity of unit/250 mL 14:21: 23:05 (13 [place] (Premixed 48 :32 mL/hr), IV Medi carol Bag) in Infusion, Branch 0.45 % NS TITRATE, Parameters in Admin. Instr., Starting Wed10/20/19 at 0921
CA UTION - If LMWH given in ER, AVOID bolus and start dose/drip 12 hours after ER dosage.&nb sp; M ust program rate using programmab le infusion pump.&nbsp ; Lois ck with the ordering provider first prior to any administra tion should the patient be on existing/a dditional anticoagul ant therapy.&n bsp; DO NOT ADJUST INITIAL BOLUS OR INITIAL INFUSION RATE&n bsp; Range, Dosing and Testing: ____ &nbs p; FO R [facility] ONLY - aPTT < 35: & nbsp;Bolus 5000 units, increase rate 300 units/hr&n bsp; - aPTT 35-44:&nbs p; Roberto noni 3000 units, increase rate 200 units/hr&n bsp; - aPTT 45-54:&nbs p; In crease rate 100 units/hr&n bsp; - aPTT 55-85:&nbs p; NO CHANGE&nbs p; - aPTT 86-95:&nbs p; De crease rate 100 units/hr&n bsp; - aPTT 96-120:&nb sp; H old 30 minutes, decrease rate 150 units/hr&n bsp; - aPTT > 120: Hold 60 minutes, decrease rate 200 units/hr&n bsp; Check aPTT 6 hours after initiation , then Q6H after every change, aPTT Q12H once therapeuti c levels are reached.&n bsp; &amp ;nbsp;____ &nbs p; FO R [facility] ONLY - aPTT < 40: & nbsp;Bolus 5000 units, increase rate 300 units/hr&n bsp; - aPTT 40-49:&nbs p; Roberto noni 3000 units, increase rate 200 units/hr&n bsp; - aPTT 50-59:&nbs p; In crease rate 100 units/hr&n bsp; - aPTT 60-85:&nbs p; NO CHANGE&nbs p; - aPTT 86-95:&nbs p; De crease rate 100 units/hr&n bsp; - aPTT 96-120:&nb sp; H old 30 minutes, decrease rate 150 units/hr&n bsp; - aPTT > 120: Hold 60 minutes, decrease rate 200 units/hr&n bsp;&n bsp;Check aPTT 6 hours after initiation , then Q6H after every change, aPTT Q12H once therapeuti c levels are reached.<b r> acetaminoph 2019-0 Yes 650mg 650 mg, Un rosanna en 10-19 Oral, ity of (TYLENOL) 13:35: Q6HPRN, [place] tablet 650 29 Starting Medic al mg Fri Branch 10/20/19 at 0835, Until Discontinu ed, Routine, Pain (scale 1-3) cefTRIAXone 0 2020- No 1000mg 1,000 mg, Univers (ROCEPHIN) 6-11 06-11 IV ity of 1,000 mg in 04:15: 03:51 Piggyback, [place] NaCl 0.9% 00 :00 ONCE, 1 Medical (NS) 50 mL dose, [facility] Bran ch MINI-BAG 08/30/19 at 2315, 50 mL
Reas on for Anti-Infec tive: Documented Infection< br>Documen kenroy Infection Site: Urine
D uration of Therapy: 7 days NaCl 0.9% 2019- No 1000mL at 999 Uni vers (NS) IV 08-30 mL/hr, ity of infusion 02:15: 03:19 Intravenou [place] 1,000 mL 00 :00 s, ONCE, 1 Medic al dose, [facility] Branch 08/30/19 at 2115, MADDIE LORazepam 2020- No 1mg 1 mg, Slow U nivers (ATIVAN) 08-30 IV Push, ity of injection 1 02:15: 01:57 ONCE, 1 [place] mg 00 :00 dose, [facility] Medical 08/30/19 at Branch 2115, STAT diphenhydrA 2020- No 25mg 25 mg, Uni vers MINE 08-30 Slow IV ity of (BENADRYL) 02:15: 01:57 Push, [place] injection 00 :00 ONCE, 1 Medical 25 mg dose, [facility] Branch 08/30/19 at 2115, STAT metoclopram 2020- No 10mg 10 mg, Uni vers fariba HCl 08-30 Slow IV ity of (REGLAN) 02:15: 01:57 Push, [place] injection 00 :00 ONCE, 1 Medical 10 mg dose, [facility] Branch 08/30/19 at 2115, MADDIE dexamethaso 2019- 2020- No 10mg 10 mg, IV Univers ne 08-30 Push, ity of (DECADRON 02:15: 01:56 ONCE, 1 [place] PHOSPHATE) 00 :00 dose, [facility] Medi carol injection 08/30/19 at Bran ch 10 mg 5, STAT ketorolac 2019-0 2020- No 30mg 30 mg, Unive rs (TORADOL) 08-30 Slow IV ity of injection 02:15: 01:56 Push, [place] 30 mg 00 :00 ONCE, 1 Medical dose, Wed Branch 08/30/19 at 2115, Routine
meteorology faculty member approving Restricted medication : ROSA RICE cephALEXin 2020-0 2020- No [id number] 250mg Take 1 Univers (KEFLEX) 08-29 06-21 capsule by ity of 250 mg 00:00: 04:59 mouth 4 [place] capsule 00 :00 (four) Medical times Branch daily for 10 days. furosemide 2020-0 Yes 60mg 60 mg, Unive rs (LASIX) - Oral, ity of tablet 60 14:00: DAILY, [place] mg 00 First dose Medical on [place] Branch 08/17/19 at 0900, Until Discontinu ed, Routine azilsartan 2020-0 Yes Take by Univ ers med-chlorth 08-16 mouth ity of alidone 00:20: daily. [place] (EDARBYCLOR 13 Medical ) 40-12.5 Branch mg Tab potassium 2020-0 Yes 20meq Take 20 Univ ers chloride 10 - mEq by ity of mEq CR 00:20: mouth [place] tablet 13 daily. Medical Branch dapaglifloz 2020-0 Yes 40mg Take 40 mg Univers in 08-16 by mouth ity of (FARXIGA) 00:20: daily. [place] 10 mg 13 Medical tablet Branch montelukast 2020-0 Yes 20mg Take 20 mg Univers 10 mg 08-16 by mouth. ity of tablet 00:20: [place] [id number] Medical Branch apixaban 2019-0 Yes 5mg Take 5 mg Univ ers (ELIQUIS) 5 08-16 by mouth 2 it y of mg tablet 00:20: (two) [address] daily[address] Branch atomoxetine 2020-0 Yes 80mg Take 80 mg Univers (STRATTERA) -28 by mouth ity of 80 mg 00:20: daily. [place] capsule 13 Medical Branch QUEtiapine 2020-0 Yes 50mg Take 50 mg U nivers (SEROQUEL) -28 by mouth ity o f 50 mg 00:20: every [place] tablet 13 morning. Medical Branch QUEtiapine 2020-0 Yes 300mg Take 300 Un rosanna (SEROQUEL) 5-28 mg by ity of 200 mg 00:20: mouth [place] tablet 13 every Medical evening. Branch escitalopra 2020-0 Yes 20mg Take 20 mg Univers m oxalate -28 by mouth ity of 20 mg 00:20: daily. [place] tablet 13 Medical Branch traMADol 2020-0 Yes 50mg Take 50 mg Uni vers 100 mg 5-28 by mouth 3 ity of capsule 00:20: (three) [place] 13 times Medical daily. Branch azilsartan 2020-0 Yes Take by Univ ers med-chlorth - mouth ity of alidone 00:20: daily. [place] (EDARBYCLOR 13 Medical ) 40-12.5 Branch mg Tab potassium 2020-0 Yes 20meq Take 20 Univ ers chloride 10 - mEq by ity of mEq CR 00:20: mouth [place] tablet 13 daily. Medical Branch dapaglifloz 2020-0 Yes 40mg Take 40 mg Univers in -28 by mouth ity of (FARXIGA) 00:20: daily. [place] 10 mg 13 Medical tablet Branch montelukast 2020-0 Yes 20mg Take 20 mg Univers 10 mg -28 by mouth. ity of tablet 00:20: [place] [address] Medical Branch apixaban 2020-0 Yes 5mg Take 5 mg Univ ers (ELIQUIS) 5 - by mouth 2 it y of mg tablet 00:20: (two) [place] 13 times Medical daily. Branch atomoxetine 2020-0 Yes 80mg Take 80 mg Univers (STRATTERA) 5-28 by mouth ity of 80 mg 00:20: daily. [place] capsule 13 Medical Branch QUEtiapine 2020-0 Yes 50mg Take 50 mg U nivers (SEROQUEL) 5-28 by mouth ity o f 50 mg 00:20: every [place] tablet 13 morning. Medical Branch QUEtiapine 2020-0 Yes 300mg Take 300 Un rosanna (SEROQUEL) 5-28 mg by ity of 200 mg 00:20: mouth [place] tablet 13 every Medical evening. Branch escitalopra 2020-0 Yes 20mg Take 20 mg Univers m oxalate 5-28 by mouth ity of 20 mg 00:20: daily. [place] tablet 13 Medical Branch traMADol 2020-0 Yes 50mg Take 50 mg Uni vers 100 mg 5-28 by mouth 3 ity of capsule 00:20: (three) [place] 13 times Medical daily. Branch apixaban 2020-0 Yes 5mg 5 mg, Univers (ELIQUIS) 5-27 Oral, BID, ity of tablet 5 mg 15:30: First dose [place] 00 on Wed Medical 08/16/19 at Branch 1030, Until Discontinu ed, Routine lisinopril 2020-0 Yes 10mg 10 mg, Unive rs (PRINIVIL,Z 08-15 Oral, ity of ESTRIL) 15:15: DAILY, [place] tablet 10 00 First dose Medi carol mg on Wed Branch 08/16/19 at 1015, Until Discontinu ed, Routine furosemide 2019- 2020- No 40mg Take 40 mg Univers (LASIX) 40 08-15 by mouth ity of mg tablet 15:11: 00:00 daily. [place] 17 :00 Medical Branch amLODIPine 2019-0 Yes 5mg 5 mg, Univer s (NORVASC) 08-15 Oral, ity of tablet 5 mg 14:00: DAILY, [place] 00 First dose Medical on Wed Branch 08/16/19 at 0900, Until Discontinu ed, Routine magnesium 2019-0 2020- No 2g 2 g, IV Univ ers sulfate in 08-15 Piggyback, it y of water 2 12:23: 14:09 ONCE, 1 [place] gram/50 mL 00 :00 dose, Wed Medi carol (4 %) 08/16/19 at Branch infusion 2 0730, g Routine atorvastati 2020- No 40mg Take 40 mg Univers n 40 mg 08-15 by mouth ity of tablet 12:21: 00:00 every 23 :00 evening. Medical Branch magnesium 2019-0 2020- No 2g 2 g, IV Univ ers sulfate in 08-15 Piggyback, it y of water 2 11:45: 11:29 ONCE, 1 [place] gram/50 mL 00 :00 dose, Wed Medi carol (4 %) 08/16/19 at Branch infusion 2 0645, g Routine FENTanyl PF 2019- 2020- No Slow IV Un rosanna (SUBLIMAZE 08-15 Push, ity of (PF)) 00:36: 00:36 TITRATE - [place] injection 48 :48 FOR Medical PROCEDURE Branch USE, 1 dose, Starting Wed08/15/19 at 1936, Until Wed08/15/19 at 1936, Routine heparin 2019- 2020- No Slow IV Univer s 1,000 08-15 Push, ity of unit/mL 00:22: 00:22 TITRATE - [place] injection 00 :00 FOR Medical PROCEDURE Branch USE, 1 dose, Starting 08/15/19 at 1921, Until 08/15/19 at 1921, Routine nitroglycer 2020- No Intravenou Univers in (TRIDIL) 08-15 s, TITRATE i ty of 2 mg in 10 00:22: 00:22 - FOR [place] mL D5W for 00 :00 PROCEDURE Medi carol Cardiac USE, 1 Branch Cath dose, Starting 08/15/19 at 1921, Until 08/15/19 at 1921, Routine lidocaine 2020- No Infiltrati U nivers 1% (PF) 08-15 on, ity of (XYLOCAINE) 00:19: 00:19 TITRATE - [place] injection 00 :00 FOR Medical PROCEDURE Branch USE, 1 dose, Starting 08/15/19 at 1918, Until 08/15/19 at 1918, Routine FENTanyl PF 2019- No Slow IV Un rosanna (SUBLIMAZE 08-15 Push, ity of (PF)) 00:17: 00:17 TITRATE - [place] injection 00 :00 FOR Medical PROCEDURE Branch USE, 1 dose, Starting 08/15/19 at 1916, Until 08/15/19 at 1916, Routine midazolam 2019- No IV Push, Uni vers (VERSED) 08-15 TITRATE - ity o f injection 00:17: 00:17 FOR [place] 00 :00 PROCEDURE Medical USE, 1 Branch dose, Starting 08/15/19 at 1916, Until Tu08/15/19 at 1916, Routine amLODIPine 0 Yes [id number] 5mg Take 1 U nivers 5 mg tablet 5-27 tablet by ity of 00:00: mouth 00 daily. Medical Branch aspirin 81 2019-0 Yes [id number] 81mg Take 1 U nivers mg chewable 5-27 tablet by ity of tablet 00:00: mouth 00 daily. Medical Branch atorvastati 0 Yes [id number] 40mg Take 1 Univers n 40 mg 5-27 tablet by ity of tablet 00:00: mouth 00 every Medical evening. Branch furosemide 0 Yes [id number] 60mg Take 1.5 Univers (LASIX) 40 5-27 tablets by ity of mg tablet 00:00: mouth [place] 00 daily. Medical Branch amLODIPine 0 Yes [id number] 5mg Take 1 U nivers 5 mg tablet 5-27 tablet by ity of 00:00: mouth [place] 00 daily. Medical Branch aspirin 81 2019-0 Yes [id number] 81mg Take 1 U nivers mg chewable 5-27 tablet by ity of tablet 00:00: mouth [place] 00 daily. Medical Branch atorvastati Yes [id number] 40mg Take 1 Univers n 40 mg 5-27 tablet by ity of tablet 00:00: mouth [place] 00 every Medical evening. Branch furosemide 2019- Yes [id number] 60mg Take 1.5 Univers (LASIX) 40 5-27 tablets by ity of mg tablet 00:00: mouth [place] 00 daily. Medical Branch amLODIPine 2020- No [id number] 5mg Take 1 Univers 5 mg tablet 5-27 08-03 tablet by it y of 00:00: 00:00 mouth [place] 00 :00 daily. Medical Branch aspirin 81 0 2020- No [id number] 81mg Take 1 Univers mg chewable 5-27 08-03 tablet by it y of tablet 00:00: 00:00 mouth [place] 00 :00 daily. Medical Branch atorvastati 0 2020- No [id number] 40mg Take 1 Univers n 40 mg 5-27 08-03 tablet by ity of tablet 00:00: 00:00 mouth [place] 00 :00 every Medical evening. Branch furosemide 2019-0 2020- No [id number] 60mg Take 1.5 Univers (LASIX) 40 5-27 08-03 tablets by it y of mg tablet 00:00: 00:00 mouth [place] 00 :00 daily. Medical Branch furosemide 2019-0 2020- No [id number] 40mg Take 1 Univers (LASIX) 40 5-27 05-27 tablet by ity of mg tablet 00:00: 00:00 mouth [place] 00 :00 daily. Medical Branch QUEtiapine 0 Yes 300mg 300 mg, Uni vers (SEROQUEL) - Oral, QPM, ity of tablet 300 22:00: First dose [place] mg 00 on [facility] Medical 08/15/19 at Branch 1700, Until Discontinu ed, Routine atorvastati Yes 40mg 40 mg, Univ ers n (LIPITOR) 08-14 Oral, QPM, it y of tablet 40 22:00: First dose [place] mg 00 on [facility] 08/15/19 at Branch 1700, Until Discontinu ed, Routine perflutren 2020-0 2020- No 2mL 2 mL, IV Un [place] lipid 08-14 Push, ity of microsphere 21:30: 20:10 ONCE, 1 [place] 00 :00 dose, [facility] (DEFINITY) 08/15/19 at [facility] [place] injection 2 1630, mL Routine QUEtiapine 2020-0 Yes 50mg 50 [facility] 08-14 Oral, QAM, ity of tablet 50 14:00: First dose [place] mg 00 on [facility] 08/15/19 at Branch 0900, Until Discontinu ed, Routine escitalopra 2020-0 Yes 20mg 20 mg, Univ ers m oxalate 08-14 Oral, ity of (LEXAPRO) 14:00: DAILY, [place] tablet 20 00 First dose Medi carol mg on [facility] 08/15/19 at 0900, Until Discontinu ed, Routine aspirin 2020-0 Yes 81mg 81 mg, Univers chewable 08-14 Oral, ity of tablet 81 14:00: DAILY, [place] mg 00 First dose Medical on [facility] 08/15/19 at 0900, Until Discontinu ed, Routine pantoprazol 2020-0 Yes 40mg 40 mg, Univ ers e 08-14 Oral, ity of (PROTONIX) 14:00: DAILY, [place] EC tablet 00 First dose Medi carol 40 mg on [facility] 08/15/19 at 0900, Until Discontinu ed, Routine furosemide 2020-0 2020- No 40mg 40 mg, Univ ers (LASIX) 08-14 Oral, ity of tablet 40 14:00: 15:08 DAILY, [place] mg 00 :22 First dose Medical on [facility] 08/15/19 at 0900, Until Discontinu ed, Routine magnesium 2020-0 2020- No 2g 2 g, IV Univ ers sulfate in 08-14 Piggyback, it y of water 2 11:45: 11:42 ONCE, 1 [place] gram/50 mL 00 :00 dose, [facility] Medi carol (4 %) 08/15/19 at [place] infusion 2 0645, g Routine morpHINE Yes 4mg 4 mg, Slow Uni vers injection 4 08-14 IV Push, ity of mg 03:56: Q4HPRN, [place] 06 Starting Medical Mon [place] 08/14/19 at 2256, Until Discontinu ed, Routine, Pain (scale 7-10) lidocaine 2020- No 1{patch 1 Patch, Univers (LIDODERM) 08-14 } Topical, ity of 5 % (700 02:45: 14:09 Administer [place] mg/patch) 00 :00 over 12 Medical patch 1 Hours, Branch Patch ONCE, 1 dose, [facility] 08/14/19 at 2145, Routine heparin 2020- No 1000U/h 1,000 Unive rs 25,000 08-14 Units/hr ity of unit/250 mL 02:33: 15:27 ([address] [place] [address] (Premixed 44 :08 mL/hr), IV Medi carol Bag) in D5W Infusion, Bra nch TITRATE, Parameters in Admin. Instr., Starting [facility] 08/14/19 at 2133
CA UTION - If LMWH given in ER, AVOID bolus and start dose/drip 12 hours after ER dosage.&nb sp; M ust program rate using programmab le infusion pump.&nbsp ; Lois ck with the ordering provider first prior to any administra tion should the patient be on existing/a dditional anticoagul ant therapy.&n bsp; DO NOT ADJUST INITIAL BOLUS OR INITIAL INFUSION RATE&n bsp; Range, Dosing and Testing: ____ &nbs p; FO R [facility] ONLY - aPTT < 35: & nbsp;Bolus 5000 units, increase rate 300 units/hr&n bsp; - aPTT 35-44:&nbs p; Roberto noni 3000 units, increase rate 200 units/hr&n bsp; - aPTT 45-54:&nbs p; In crease rate 100 units/hr&n bsp; - aPTT 55-85:&nbs p; NO CHANGE&nbs p; - aPTT 86-95:&nbs p; De crease rate 100 units/hr&n bsp; - aPTT 96-120:&nb sp; H old 30 minutes, decrease rate 150 units/hr&n bsp; - aPTT > 120: Hold 60 minutes, decrease rate 200 units/hr&n bsp; Check aPTT 6 hours after initiation , then Q6H after every change, aPTT Q12H once therapeuti c levels are reached.&n bsp; &amp ;nbsp;____ &nbs p; FO R [facility] ONLY - aPTT < 40: & nbsp;Bolus 3000 units, increase rate 100 units/hr&n bsp; - aPTT 40-49:&nbs p; In crease rate 50 units/hr&a mp;nbsp; - aPTT 50-70:&nbs p; NO CHANGE&nbs p; - aPTT 71-85:&nbs p; De crease rate 50 units/hr&n bsp; - aPTT 86-100:&nb sp; H old 30 minutes, decrease rate 100 units/hr&n bsp; -aPTT 101-150:&n bsp; Hold 60 minutes, decrease rate 150 units/hr&n bsp; - aPTT > 150: Hold 60 minutes, decrease rate 300 units/hr&n bsp; Check aPTT 6 hours after initiation , then Q6H after every change, aPTT Q12H once therapeuti c levels are reached.<b r> Sliding 2020-0 Yes Subcutaneo Univ ers Scale 08-14 us, TID ity of Insulin - 02:00: MEALS+HS, [place] as Aspart 00 First dose Medical (NOVOLOG) + on Wed Branch Fsbg 08/14/19 at Testing 2100, Until Discontinu ed, Routine heparin 2020- No 4000U 4,000 Univers 1000 08-14 Units, IV ity of unit/mL 01:45: 03:18 Push, [place] injection 00 :00 ONCE, 1 Medical Soln 4,000 dose, Mon Bran ch Units 08/14/19 at 2044, Routine heparin 2020- No 3000U FOR Univers (1,000 08-14 REBOLUSING ity of unit/mL, 10 01:33: 15:27 , Starting [place] mL vial) 45 :08 Mon Medical for 08/14/19 at Branch Rebolusing 2032, Until 08/16/19 at 1027, Routine
Dosing based on aPTT testing parameters (refer to continuous heparin drip order).
dextrose Yes 250mL 250 mL, IV Un rosanna 10% (D10W) 08-14 Infusion, ity of bolus 01:29: PRN - SEE [place] infusion 40 INSTRUCTIO Medic al 250 mL NS, BG<70, Branch Starting 08/14/19 at 2028
De xtrose 10% 250 mL bag contains:& nbsp;10 gm = 100 mL 20 gm = 200 mL 25 gm = 250 mL (whole bag) The maximum rate at which dextrose can be infused without producing glycosuria is 0.5 g/kg/hour. &nbs p;BUD: If wrapper is open bag is good for 30 days at room temperatur e. <b r> glucagon 2019-0 Yes 1mg 1 mg, Univers (GLUCAGEN 08-14 Intramuscu ity of DIAGNOSTIC 01:29: lar, PRN, [place] KIT) 37 Starting Medical injection 1 Mon Branch mg 08/14/19 at 2028, Until Discontinu ed, MADDIE, Blood Glucose < or = 70 mg/dL and patient is unable to swallow or has mental changes. acetaminoph 2019- Yes 650mg 650 mg, Un rosanna en 5-26 Oral, ity of (TYLENOL) 01:29: Q6HPRN, [place] tablet 650 24 Starting Medic al mg [facility] 08/14/19 at 2029, Until Discontinu ed, Routine, Pain (scale 1-3) nitroglycer 2019-2019- No 1[in_us 1 Inch, Univers in (NITROL) 5-25 05-25 ] Transderma i ty of 2 % 22:00: 21:15 l (Apply [place] ointment 1 00 :00 To Skin), Medi carol Inch ONCE, 1 Branch dose, [facility] 08/14/19 at 1700, MADDIE paroxetine 2019- No 10mg Take 10 mg Univers (PAXIL) 10 -25 05-25 by mouth ity of mg tablet 21:49: 00:00 daily. [place] 06 :00 [facility] Branch HYDROcodone 2019- No 1{tbl} Take 1 Tab Univers -acetaminop 5-25 05-25 by mouth ity of hen (NORCO) 21:48: 00:00 every 6 [place] 10-325 mg 48 :00 (six) Medical tablet hours as Branch needed. carisoprodo 2019- No 350mg Take 350 Univers l (SOMA) 5-25 05-25 mg by ity of 350 mg 21:48: 00:00 mouth 4 [place] tablet 33 :00 (four) Medical times Branch daily. enalapril-h 2019- No 2{tbl} Take 2 U nivers ydrochlorot 5-25 05-25 Tabs by ity of hiazide 21:48: 00:00 mouth [place] (VASERETIC) 18 :00 daily. Medica l 10-25 mg Branch per tablet morpHINE 2019-2019- No 4mg 4 mg, Slow Un rosanna injection 4 5-25 05-25 IV Push, ity of mg 20:15: 19:04 ONCE, 1 [place] 00 :00 dose, [facility] 08/14/19 at Branch 1515, Routine iohexol 2019-2019- No 120mL 120 mL, Unive rs (OMNIPAQUE 5-25 05-25 Intravenou it y of 350 19:30: 19:12 s, ONCE, 1 [place] BULK-150 00 :00 dose, Mon Medica l mL) 08/14/19 at Branch injection 1430, 120 mL Routine enoxaparin 2019- No 150mg 150 mg, Un rosanna (LOVENOX) 08-13 Subcutaneo ity of injection 19:30: 19:30 [place] 150 mg 00 :00 1 dose, Medical [facility] 08/14/19 at 1430, MADDIE ondansetron 2019- No 4mg 4 mg, Slow [facility] (ZOFRAN 08-13 IV Push, ity of (PF)) 19:15: 18:51 ONCE, 1 [place] injection 4 00 :00 dose, Mon Med ical mg 08/14/19 at [place] 1415, AMDDIE ketorolac 2019- No 30mg 30 mg, Unive rs (TORADOL) 08-13 Slow IV ity of injection 18:00: 17:06 Push, [place] 30 mg 00 :00 ONCE, 1 Medical dose, [facility] 08/14/19 at 1300, MADDIE
Fa culty member approving Restricted medication : Link GERMAN aspirin 2019- No 324mg 324 mg, Unive rs chewable 08-13 Oral, ity of tablet 324 17:45: 17:06 ONCE, 1 Jorge as mg 00 :00 dose, [facility] 08/14/19 at [place] 1245, Routine topiramate 2018- Yes 50 mg = 1 Me moria 50 mg oral 6-06 tab, PO, l tablet 22:33: BID, # 60 Jorge n 00 tab, 1 Refill(s), Pharmacy: [facility] [id number] topiramate 2018-0 Yes 50 mg = 1 Me moria 50 mg oral 6-06 tab, PO, l tablet 22:33: BID, # 60 Jorge n 00 tab, 1 Refill(s), Pharmacy: [facility] 140 topiramate 2018- Yes 50 mg = 1 Me moria 50 mg oral 6-06 tab, PO, l tablet 22:33: BID, # 60 Jorge n 00 tab, 1 Refill(s), Pharmacy: [facility] [id number] topiramate Yes 50 mg = 1 Me moria 50 mg oral 6-06 tab, PO, l tablet 22:33: BID, # 60 Jorge n 00 tab, 1 Refill(s), Pharmacy: [facility] [id number] Dihydroergo No Notes: Levy mike tamine 6-06 (Same as: l Mesylate 1 21:58: D.H.E. 45) H ermann MG/ML 00 Injectable Solution [DHE-45] Dihydroergo No Notes: Levy mike tamine 6-06 (Same as: l Mesylate 1 21:58: D.H.E. 45) H ermann MG/ML 00 Injectable Solution [DHE-45] Dihydroergo No Notes: Levy mike tamine 6-06 (Same as: l Mesylate 1 21:58: D.H.E. 45) H ermann MG/ML 00 Injectable Solution [DHE-45] Dihydroergo No Notes: Levy mike tamine 6-06 (Same as: l Mesylate 1 21:58: D.H.E. 45) H ermann MG/ML 00 Injectable Solution [DHE-45] ketOROLAC 2018-0 No 4 days Memor ia 30 mg/mL 6-06 l injectable 18:46: MEDICATION H ermann solution 00 WASTE Product Size: 30 mg Product Wasted: ___ mg ketOROLAC 0 No 4 days Memor ia 30 mg/mL 6-06 l injectable 18:46: MEDICATION H ermann solution 00 WASTE Product Size: 30 mg Product Wasted: ___ mg ketOROLAC 2019-0 No 4 days Memor ia 30 mg/mL 6-06 l injectable 18:46: MEDICATION H ermann solution 00 WASTE Product Size: 30 mg Product Wasted: ___ mg ketOROLAC 2018-0 No 4 days Memor ia 30 mg/mL 6-06 l injectable 18:46: MEDICATION H ermann solution 00 WASTE Product Size: 30 mg Product Wasted: ___ mg Prednisone No Notes: Memor ia - Take with l 13:57: food. [place] 00 Prednisone 2019-0 No Notes: Memor ia 6-06 Take with l 13:57: food. [place] 00 Prednisone 2018-0 No Notes: Memor ia 6-06 Take with l 13:57: food. [place] 00 Prednisone 0 No Notes: Memor ia 6-06 Take with l 13:57: food. [place] 00 Topamax 2018-0 No Notes: Memoria 6-06 (Same As: l 02:00: Topamax) [place] "Do Not Crush" Topamax 2019-0 No Notes: Memoria 6-06 (Same As: l 02:00: Topamax) [place] "Do Not Crush" Topamax 2018-0 No Notes: Memoria 6-06 (Same As: l 02:00: Topamax) [place] 00 "Do Not Crush" Topamax 2019-0 No Notes: Memoria 6-06 (Same As: l 02:00: Topamax) [place] 00 "Do Not Crush" Imitrex 2019-0 No 6 mg, Memoria 6-05 Route: l 21:45: SUB-Q, [place] 00 ONCE, Dosing Weight 187.273, kg, Start date: 08/24/18 16:45:00 CDT, Stop date: 08/24/18 16:45:00 CDT Imitrex 2019-0 No 6 mg, Memoria 6-05 Route: l 21:45: SUB-Q, [place] 00 ONCE, Dosing Weight 187.273, kg, Start date: 08/24/18 16:45:00 CDT, Stop date: 08/24/18 16:45:00 CDT Imitrex 2019-0 No 6 mg, Memoria 6-05 Route: l 21:45: SUB-Q, [place] 00 ONCE, Dosing Weight 187.273, kg, Start date: 08/24/18 16:45:00 CDT, Stop date: 08/24/18 16:45:00 CDT Imitrex 2019-0 No 6 mg, Memoria 6-05 Route: l 21:45: SUB-Q, [place] 00 ONCE, Dosing Weight 187.273, kg, Start date: 08/24/18 16:45:00 CDT, Stop date: 08/24/18 16:45:00 CDT topiramate 2019-0 Yes 25 mg = 1 Me moria 25 mg oral 6-05 cap, PO, l capsule 21:01: Q12H, X 30 Herm edwin 00 day, # 60 cap, 0 Refill(s), Pharmacy: [facility] topiramate Yes 25 mg = 1 Me moria 25 mg oral 6-05 cap, PO, l capsule 21:01: Q12H, X 30 Herm edwin 00 day, # 60 cap, 0 Refill(s), Pharmacy: [facility] topiramate Yes 25 mg = 1 Me moria 25 mg oral 6-05 cap, PO, l capsule 21:01: Q12H, X 30 Herm edwin 00 day, # 60 cap, 0 Refill(s), Pharmacy: [facility] topiramate Yes 25 mg = 1 Me moria 25 mg oral 6-05 cap, PO, l capsule 21:01: Q12H, X 30 Herm edwin 00 day, # 60 cap, 0 Refill(s), Pharmacy: [facility] Imitrex No Notes: Memoria 6-05 For l 20:07: SUBCUTANEO [place] US use only Imitrex No Notes: Memoria 6-05 For l 20:07: SUBCUTANEO [place] US use only Imitrex No Notes: Memoria 6-05 For l 20:07: SUBCUTANEO [place] 00 US use only Imitrex No Notes: Memoria 6-05 For l 20:07: SUBCUTANEO [place] US use only Prednisone No Notes: Memor ia 6-05 Take with l 19:49: food. Prednisone No Notes: Memor ia 6-05 Take with l 19:49: food. Prednisone No Notes: Memor ia 6-05 Take with l 19:49: food. Prednisone No Notes: Memor ia 6-05 Take with l 19:49: food. Ketorolac No 10 mg = 1 Mem oria Tromethamin 6-05 tab, PO, l e 10 MG 15:41: Q6H, X 3 Jorge n Oral Tablet 00 day, # 12 tab, 0 Refill(s), Pharmacy: [facility] Ketorolac No 10 mg = 1 Mem oria Tromethamin 6-05 tab, PO, l e 10 MG 15:41: Q6H, X 3 Jorge n Oral Tablet 00 day, # 12 tab, 0 Refill(s), Pharmacy: [facility] Ketorolac No 10 mg = 1 Mem oria Tromethamin 6-05 tab, PO, l e 10 MG 15:41: Q6H, X 3 Jorge n Oral Tablet 00 day, # 12 tab, 0 Refill(s), Pharmacy: [facility] Ketorolac No 10 mg = 1 Mem oria Tromethamin 6-05 tab, PO, l e 10 MG 15:41: Q6H, X 3 Jorge n Oral Tablet 00 day, # 12 tab, 0 Refill(s), Pharmacy: [facility] Morphine No Notes: Memoria 6-05 (Same l 15:38: as:MORPhin [place] 00 e Sulfate) Morphine No Notes: Memoria 6-05 (Same l 15:38: as:MORPhin [place] 00 e Sulfate) Morphine No Notes: Memoria 6-05 (Same l 15:38: as:MORPhin [place] 00 e Sulfate) Morphine No Notes: Memoria 6-05 (Same l 15:38: as:MORPhin [place] 00 e Sulfate) Hydrochloro No 1 tab, Levy mike thiazide 25 6-05 Route: PO, l MG / 14:00: Drug Form: [place] Lisinopril 00 TAB, 20 MG Oral Dosing Tablet Weight 187.273, kg, Daily, Start date: 08/24/18 9:00:00 CDT, Duration: 30 day, Stop date: 09/22/18 9:00:00 CDT Hydrochloro No 1 tab, Levy mike thiazide 25 6-05 Route: PO, l MG / 14:00: Drug Form: [place] Lisinopril 00 TAB, 20 MG Oral Dosing Tablet Weight 187.273, kg, Daily, Start date: 08/24/18 9:00:00 CDT, Duration: 30 day, Stop date: 09/22/18 9:00:00 CDT Hydrochloro 2019-0 No 1 tab, Levy mike thiazide 25 6-05 Route: PO, l MG / 14:00: Drug Form: [place] Lisinopril 00 TAB, 20 MG Oral Dosing Tablet Weight 187.273, kg, Daily, Start date: 08/24/18 9:00:00 CDT, Duration: 30 day, Stop date: 09/22/18 9:00:00 CDT Hydrochloro 2019-0 No 1 tab, Levy mike thiazide 25 6-05 Route: PO, l MG / 14:00: Drug Form: [place] Lisinopril 00 TAB, 20 MG Oral Dosing Tablet Weight 187.273, kg, Daily, Start date: 08/24/18 9:00:00 CDT, Duration: 30 day, Stop date: 09/22/18 9:00:00 CDT atorvastati No Notes: Levy mike n 6-05 (Same as: l 02:00: Lipitor) atorvastati No Notes: Levy mike n 6-05 (Same as: l 02:00: Lipitor) atorvastati No Notes: Levy mike n 6-05 (Same as: l 02:00: Lipitor) atorvastati No Notes: Levy mike n 6-05 (Same as: l 02:00: Lipitor) Famotidine No Notes: Memor ia 20 MG Oral 6-04 (Same as: l Tablet 22:00: Pepcid) [Pepcid] metoprolol No Notes: Memor ia tartrate 6-04 (Same as: l 22:00: Lopressor) Famotidine No Notes: Memor ia 20 MG Oral 6-04 (Same as: l Tablet 22:00: Pepcid) [Pepcid] metoprolol No Notes: Memor ia tartrate 6-04 (Same as: l 22:00: Lopressor) Famotidine No Notes: Memor ia 20 MG Oral 6-04 (Same as: l Tablet 22:00: Pepcid) [Pepcid] metoprolol 2018-0 No Notes: Memor ia tartrate 6-04 (Same as: l 22:00: Lopressor) Famotidine 2018-0 No Notes: Memor ia 20 MG Oral 6-04 (Same as: l Tablet 22:00: Pepcid) [Pepcid] metoprolol 2018-0 No Notes: Memor ia tartrate 6-04 (Same as: l 22:00: Lopressor) Morphine 2019-0 No 4 mg, 2 Memori a 6-04 mL, Route: l 21:27: IVP, Drug [place] form: SOLN, Q4H, Dosing Weight 187.273, kg, PRN Pain Score 7-10, Start date: 08/23/18 16:27:00 CDT, Duration: 30 day, Stop date: 09/22/18 16:26:00 CDT Morphine 2019-0 No 4 mg, 2 Memori a 6-04 mL, Route: l 21:27: IVP, Drug [place] 00 form: SOLN, Q4H, Dosing Weight 187.273, kg, PRN Pain Score 7-10, Start date: 08/23/18 16:27:00 CDT, Duration: 30 day, Stop date: 09/22/18 16:26:00 CDT Morphine 2019-0 No 4 mg, 2 Memori a 6-04 mL, Route: l 21:27: IVP, Drug [place] 00 form: SOLN, Q4H, Dosing Weight 187.273, kg, PRN Pain Score 7-10, Start date: 08/23/18 16:27:00 CDT, Duration: 30 day, Stop date: 09/22/18 16:26:00 CDT Morphine 2019-0 No 4 mg, 2 Memori a 6-04 mL, Route: l 21:27: IVP, Drug [place] 00 form: SOLN, Q4H, Dosing Weight 187.273, kg, PRN Pain Score 7-10, Start date: 08/23/18 16:27:00 CDT, Duration: 30 day, Stop date: 09/22/18 16:26:00 CDT Compazine 2019-0 No Notes: Memori a 6-04 (Same as: l 20:34: Compazine) [place] 00 ketOROLAC No 4 days Memor ia 30 mg/mL 6-04 l injectable 20:34: MEDICATION H ermann solution 00 WASTE Product Size: 30 mg Product Wasted: ___ mg Benadryl No Notes: Memoria 6-04 (Same as: l 20:34: Benadryl) Compazine No Notes: Memori a 6-04 (Same as: l 20:34: Compazine) ketOROLAC No 4 days Memor ia 30 mg/mL 6-04 l injectable 20:34: MEDICATION H ermann solution 00 WASTE Product Size: 30 mg Product Wasted: ___ mg Benadryl No Notes: Memoria 6-04 (Same as: l 20:34: Benadryl) Compazine No Notes: Memori a 6-04 (Same as: l 20:34: Compazine) ketOROLAC No 4 days Memor ia 30 mg/mL 6-04 l injectable 20:34: MEDICATION H ermann solution 00 WASTE Product Size: 30 mg Product Wasted: ___ mg Benadryl No Notes: Memoria 6-04 (Same as: l 20:34: Benadryl) Compazine No Notes: Memori a 6-04 (Same as: l 20:34: Compazine) ketOROLAC No 4 days Memor ia 30 mg/mL 6-04 l injectable 20:34: MEDICATION H ermann solution 00 WASTE Product Size: 30 mg Product Wasted: ___ mg Benadryl No Notes: Memoria 6-04 (Same as: l 20:34: Benadryl) tramadol No Notes: Not Mem oria hydrochlori 08-23 to exceed l de 50 MG 18:00: 400mg/day. Her wright Oral Tablet 00 (Same As: Ultram) Sucralfate No Notes: May M emoria 08-23 interfere l 18:00: w/enteral [place] 00 feeds - Take 1 hr before or 2 hr after antacids, dairy pdt, meals & minerals - On empty stomach. For patients unable to swallow tablet, dissolve in 10mL - 30mL of water or juice and stir before giving. (Same As: Carafate) tramadol No Notes: Not Mem oria hydrochlori 08-23 to exceed l de 50 MG 18:00: 400mg/day. Her wright Oral Tablet 00 (Same As: Ultram) Sucralfate No Notes: July emoria 08-23 interfere l 18:00: w/enteral [place] 00 feeds - Take 1 hr before or 2 hr after antacids, dairy pdt, meals & minerals - On empty stomach. For patients unable to swallow tablet, dissolve in 10mL - 30mL of water or juice and stir before giving. (Same As: Carafate) tramadol No Notes: Not Mem oria hydrochlori 08-23 to exceed l de 50 MG 18:00: 400mg/day. Her wright Oral Tablet 00 (Same As: Ultram) Sucralfate No Notes: July emoria 08-23 interfere l 18:00: w/enteral [place] 00 feeds - Take 1 hr before or 2 hr after antacids, dairy pdt, meals & minerals - On empty stomach. For patients unable to swallow tablet, dissolve in 10mL - 30mL of water or juice and stir before giving. (Same As: Carafate) tramadol No Notes: Not Mem oria hydrochlori 08-23 to exceed l de 50 MG 18:00: 400mg/day. Her wright Oral Tablet 00 (Same As: Ultram) Sucralfate No Notes: July emoria 08-23 interfere l 18:00: w/enteral [place] 00 feeds - Take 1 hr before or 2 hr after antacids, dairy pdt, meals & minerals - On empty stomach. For patients unable to swallow tablet, dissolve in 10mL - 30mL of water or juice and stir before giving. (Same As: Carafate) Isosorbide No Notes: Memor ia 08-23 (Same l 17:07: as:Imdur) [place] 00 "Do Not Crush" Take on empty stomach/ full glass of water. Do not crush pantoprazol 2018- No Notes: Levy mike e 6-04 Tablet l 17:07: should not [place] 00 be chewed or crushed. (Same as: Protonix) Isosorbide No Notes: Memor ia 6-04 (Same l 17:07: as:Imdur) [place] 00 "Do Not Crush" Take on empty stomach/ full glass of water. Do not crush pantoprazol No Notes: Levy mike e 6-04 Tablet l 17:07: should not [place] 00 be chewed or crushed. (Same as: Protonix) Isosorbide No Notes: Memor ia 6-04 (Same l 17:07: as:Imdur) [place] 00 "Do Not Crush" Take on empty stomach/ full glass of water. Do not crush pantoprazol No Notes: Levy mike e 6-04 Tablet l 17:07: should not [place] 00 be chewed or crushed. (Same as: Protonix) Isosorbide No Notes: Memor ia 6-04 (Same l 17:07: as:Imdur) [place] 00 "Do Not Crush" Take on empty stomach/ full glass of water. Do not crush pantoprazol No Notes: Levy mike e 6-04 Tablet l 17:07: should not [place] 00 be chewed or crushed. (Same as: Protonix) lisinopril No Notes: Memor ia 6-04 (Same as: l 17:05: Prinivil, [place] 00 Zestril) lisinopril No Notes: Memor ia 6-04 (Same as: l 17:05: Prinivil, [place] 00 Zestril) lisinopril No Notes: Memor ia 6-04 (Same as: l 17:05: Prinivil, [place] 00 Zestril) lisinopril No Notes: Memor ia 6-04 (Same as: l 17:05: Prinivil, [place] 00 Zestril) Escitalopra No Notes: Levy mike m 6-04 (Same as: l 17:04: Lexapro) [place] hydrochloro No Notes: Levy mike thiazide 25 6-04 (Same as: l mg oral 17:04: Hydrodiuri Herm edwin tablet 00 l) With food. Escitalopra No Notes: Levy mike m 6-04 (Same as: l 17:04: Lexapro) [place] hydrochloro No Notes: Levy mike thiazide 25 6-04 (Same as: l mg oral 17:04: Hydrodiuri Herm edwin tablet 00 l) With food. Escitalopra No Notes: Levy mike m 6-04 (Same as: l 17:04: Lexapro) [place] hydrochloro No Notes: Levy mike thiazide 25 6-04 (Same as: l mg oral 17:04: Hydrodiuri Herm edwin tablet 00 l) With food. Escitalopra No Notes: Levy mike m 6-04 (Same as: l 17:04: Lexapro) [place] 00 hydrochloro No Notes: Levy mike thiazide 25 6-04 (Same as: l mg oral 17:04: Hydrodiuri Herm edwin tablet 00 l) With food. Tums No Notes: Memoria 6-04 (Same As: l 16:57: Tums) [place] 00 Calcium Carbonate 500 mg = 200 mg elemental calcium Dose = mg calcium carbonate ( mg elemental calcium) No Notes: Memoria 6-04 (Same As: l 16:57: Tums) [place] 00 Calcium Carbonate 500 mg = 200 mg elemental calcium Dose = mg calcium carbonate ( mg elemental calcium) No Notes: Memoria 6-04 (Same As: l 16:57: Tums) [place] 00 Calcium Carbonate 500 mg = 200 mg elemental calcium Dose = mg calcium carbonate ( mg elemental calcium) No Notes: Memoria 6-04 (Same As: l 16:57: Tums) [place] 00 Calcium Carbonate 500 mg = 200 mg elemental calcium Dose = mg calcium carbonate ( mg elemental calcium) Morphine No Notes: Memoria 6-04 (Same l 14:58: as:MORPhin [place] 00 e Sulfate) Morphine No Notes: Memoria 6-04 (Same l 14:58: as:MORPhin [place] 00 e Sulfate) Morphine No Notes: Memoria 6-04 (Same l 14:58: as:MORPhin [place] 00 e Sulfate) Morphine No Notes: Memoria 6-04 (Same l 14:58: as:MORPhin [place] 00 e Sulfate) Saline No Notes: Memoria Flush 0.9% 6-04 (Same as: l 14:00: BD [place] 00 Posiflush) Saline No Notes: Memoria Flush 0.9% 6-04 (Same as: l 14:00: BD [place] 00 Posiflush) Saline No Notes: Memoria Flush 0.9% 6-04 (Same as: l 14:00: BD [place] 00 Posiflush) Saline No Notes: Memoria Flush 0.9% 6-04 (Same as: l 14:00: BD [place] 00 Posiflush) ketOROLAC No 4 days Memor ia 30 mg/mL 6-04 l injectable 11:43: MEDICATION H ermann solution 00 WASTE Product Size: 30 mg Product Wasted: ___ mg Sumatriptan No Notes: Levy mike 6-04 For l 11:43: SUBCUTANEO [place] 00 US use only ketOROLAC No 4 days Memor ia 30 mg/mL 6-04 l injectable 11:43: MEDICATION H ermann solution 00 WASTE Product Size: 30 mg Product Wasted: ___ mg Sumatriptan No Notes: Levy mike 6-04 For l 11:43: SUBCUTANEO [place] 00 US use only ketOROLAC No 4 days Memor ia 30 mg/mL 6-04 l injectable 11:43: MEDICATION H ermann solution 00 WASTE Product Size: 30 mg Product Wasted: ___ mg Sumatriptan No Notes: Levy mike 6-04 For l 11:43: SUBCUTANEO [place] 00 US use only ketOROLAC 2019 No 4 days Memor ia 30 mg/mL 04 l injectable 11:43: MEDICATION H ermann solution 00 WASTE Product Size: 30 mg Product Wasted: ___ mg Sumatriptan No Notes: Levy mike 6-04 For l 11:43: SUBCUTANEO [place] 00 US use only Aspirin 81 No Notes: Do Me moria MG Enteric 6-04 not crush l Coated 04:00: or chew. [place] Tablet 00 (Same As: Ecotrin) Aspirin 81 No Notes: Do Me moria MG Enteric 6-04 not crush l Coated 04:00: or chew. [place] Tablet 00 (Same As: Ecotrin) Aspirin 81 No Notes: Do Me moria MG Enteric 6-04 not crush l Coated 04:00: or chew. [place] Tablet 00 (Same As: Ecotrin) Aspirin 81 No Notes: Do Me moria MG Enteric 6-04 not crush l Coated 04:00: or chew. [place] Tablet 00 (Same As: Ecotrin) Saline No Notes: Memoria Flush 0.9% 6-04 (Same as: l 03:59: BD [place] 00 Posiflush) Sodium No 1,000 mL, Memori a Chloride 08-23 Rate: 100 l 0.9% IV 03:59: ml/hr, [place] 1,000 mL 00 Infuse over: 10 hr, Route: IV, Dosing Weight 190.909 kg, Total Volume: 1,000, Start date: 08/22/18 22:59:00 CDT, Duration: 30 day, Stop date: 09/21/18 22:58:00 CDT, 3.16, m2 Acetaminoph 2019 No Notes: Do M emoria en 6-04 not exceed l 03:59: 4 gm/day. [place] 00 (Same as: Tylenol) Saline No Notes: Memoria Flush 0.9% 6-04 (Same as: l 03:59: BD [place] 00 Posiflush) Sodium No 1,000 mL, Memori a Chloride 6-04 Rate: 100 l 0.9% IV 03:59: ml/hr, [place] 1,000 mL 00 Infuse over: 10 hr, Route: IV, Dosing Weight 190.909 kg, Total Volume: 1,000, Start date: 08/22/18 22:59:00 CDT, Duration: 30 day, Stop date: 09/21/18 22:58:00 CDT, 3.16, m2 Acetaminoph No Notes: Do M emoria en -04 not exceed l 03:59: 4 gm/day. [place] 00 (Same as: Tylenol) Saline No Notes: Memoria Flush 0.9% 6-04 (Same as: l 03:59: BD [place] 00 Posiflush) Sodium No 1,000 mL, Memori a Chloride 6-04 Rate: 100 l 0.9% IV 03:59: ml/hr, [place] 1,000 mL 00 Infuse over: 10 hr, Route: IV, Dosing Weight 190.909 kg, Total Volume: 1,000, Start date: 08/22/18 22:59:00 CDT, Duration: 30 day, Stop date: 09/21/18 22:58:00 CDT, 3.16, m2 Acetaminoph No Notes: Do M emoria en 08-23 not exceed l 03:59: 4 gm/day. [place] 00 (Same as: Tylenol) Saline No Notes: Memoria Flush 0.9% 6-04 (Same as: l 03:59: BD [place] 00 Posiflush) Sodium No 1,000 mL, Memori a Chloride 6-04 Rate: 100 l 0.9% IV 03:59: ml/hr, [place] 1,000 mL 00 Infuse over: 10 hr, Route: IV, Dosing Weight 190.909 kg, Total Volume: 1,000, Start date: 08/22/18 22:59:00 CDT, Duration: 30 day, Stop date: 09/21/18 22:58:00 CDT, 3.16, m2 Acetaminoph No Notes: Do M emoria en 04 not exceed l 03:59: 4 gm/day. [place] (Same as: Tylenol) Aspirin No Notes: Memoria 6-04 Take with l 03:12: food. [place] Aspirin No Notes: Memoria 6-04 Take with l 03:12: food. [place] Aspirin No Notes: Memoria 6-04 Take with l 03:12: food. [place] Aspirin No Notes: Memoria 6-04 Take with l 03:12: food. [place] 00 Morphine 2019-0 No 6 mg, Memoria 6-04 Route: l 01:44: IVP, Drug [place] 00 form: SOLN, ONCE, Dosing Weight 190.909, kg, Priority: STAT, Start date: 08/22/18 20:44:00 CDT, Stop date: 08/22/18 20:44:00 CDT Morphine 2019-0 No 6 mg, Memoria 6-04 Route: l 01:44: IVP, Drug [place] form: SOLN, ONCE, Dosing Weight 190.909, kg, Priority: STAT, Start date: 08/22/18 20:44:00 CDT, Stop date: 08/22/18 20:44:00 CDT Morphine 2019-0 No 6 mg, Memoria 6-04 Route: l 01:44: IVP, Drug [place] form: SOLN, ONCE, Dosing Weight 190.909, kg, Priority: STAT, Start date: 08/22/18 20:44:00 CDT, Stop date: 08/22/18 20:44:00 CDT Morphine 2019-0 No 6 mg, Memoria 6-04 Route: l 01:44: IVP, Drug [place] 00 form: SOLN, ONCE, Dosing Weight 190.909, kg, Priority: STAT, Start date: 08/22/18 20:44:00 CDT, Stop date: 08/22/18 20:44:00 CDT Xylocaine 0 No Notes: Memori a Viscous 2% 6-03 (Same as: l mucous 23:56: Xylocaine) [place] nn membrane 00 solution Xylocaine No Notes: Memori a Viscous 2% 6-03 (Same as: l mucous 23:56: Xylocaine) [place] nn membrane 00 solution Xylocaine 0 No Notes: Memori a Viscous 2% 6-03 (Same as: l mucous 23:56: Xylocaine) [place] nn membrane 00 solution Xylocaine No Notes: Memori a Viscous 2% 6-03 (Same as: l mucous 23:56: Xylocaine) [place] nn membrane 00 solution Al No Notes: Memoria hydroxide/M 6-03 (aluminum l g 23:55: hydroxide- [place] hydroxide/s 00 magnesium imethicone hyd-simeth icone 200-200-20 mg/5ml 30 ml ud ZENIA) Al No Notes: Memoria hydroxide/M 6-03 (aluminum l g 23:55: hydroxide- [place] hydroxide/s 00 magnesium imethicone hyd-simeth icone 200-200-20 mg/5ml 30 ml ud ZENIA) Al No Notes: Memoria hydroxide/M 6-03 (aluminum l g 23:55: hydroxide- [place] hydroxide/s 00 magnesium imethicone hyd-simeth icone 200-200-20 mg/5ml 30 ml ud ZENIA) Al No Notes: Memoria hydroxide/M 6-03 (aluminum l g 23:55: hydroxide- [place] hydroxide/s 00 magnesium imethicone hyd-simeth icone 200-200-20 mg/5ml 30 ml ud ZENIA) GI cocktail No 30 mL, Levy mike (aluminum 6-03 Route: PO, l hydroxide/m 23:21: Dosing Herm edwin agnesium 00 Weight hydroxide/l 190.909, idocaine/si kg, ONCE, methicone) STAT, Start date: 08/22/18 18:21:00 CDT, Stop date: 08/22/18 18:21:00 CDT GI cocktail No 30 mL, Levy mike (aluminum 6-03 Route: PO, l hydroxide/m 23:21: Dosing Herm edwin agnesium 00 Weight hydroxide/l 190.909, idocaine/si kg, ONCE, methicone) STAT, Start date: 08/22/18 18:21:00 CDT, Stop date: 08/22/18 18:21:00 CDT GI cocktail 0 No 30 mL, Levy mike (aluminum 6-03 Route: PO, l hydroxide/m 23:21: Dosing Herm edwin agnesium 00 Weight hydroxide/l 190.909, idocaine/si kg, ONCE, methicone) STAT, Start date: 08/22/18 18:21:00 CDT, Stop date: 08/22/18 18:21:00 CDT GI cocktail No 30 mL, Levy mike (aluminum 08-22 Route: PO, l hydroxide/m 23:21: Dosing Herm edwin agnesium 00 Weight hydroxide/l 190.909, idocaine/si kg, ONCE, methicone) STAT, Start date: 08/22/18 18:21:00 CDT, Stop date: 08/22/18 18:21:00 CDT Reglan No Notes: Memoria 08-22 (Same as: l 21:06: Reglan) [place] 00 NS (Bolus) No 1,000 mL, Me moria IV 08-22 1,000 l 21:06: ml/hr, [place] 00 Infuse Over: 1 hr, Route: IV, [...] Memoria 08-22 (Same as: l 21:06: Benadryl) [place] 00 Acetaminoph No Notes: Max Memoria en 08-22 acetaminop l 21:06: hen 4000 [place] 00 mg/day (4 gm/day). (Same as: Tylenol Extra Strength) Reglan No Notes: Memoria 08-22 (Same as: l 21:06: Reglan) [place] 00 NS (Bolus) No 1,000 mL, Me moria IV 08-22 1,000 l 21:06: ml/hr, [place] 00 Infuse Over: 1 hr, Route: IV, 1,000, Drug form: INJ, ONCE, Priority: STAT, Dosing Weight 190.909 kg, Start date: 08/22/18 16:06:00 CDT, Stop date: 08/22/18 16:06:00 CDT ketOROLAC No 4 days Memor ia 30 mg/mL 08-22 l injectable 21:06: MEDICATION H ermann solution 00 WASTE Product Size: 30 mg Product Wasted: ___ mg Benadryl No Notes: Memoria 6- (Same as: l 21:06: Benadryl) [place] 00 Acetaminoph No Notes: Max Memoria en 08-22 acetaminop l 21:06: hen 4000 [place] 00 mg/day (4 gm/day). (Same as: Tylenol Extra Strength) Reglan No Notes: Memoria 08-22 (Same as: l 21:06: Reglan) [place] 00 NS (Bolus) No 1,000 mL, Me moria IV 08-22 1,000 l 21:06: ml/hr, [place] 00 Infuse Over: 1 hr, Route: IV, [...] 00 Acetaminoph No Notes: Max Memoria en -03 acetaminop l 21:06: hen 4000 [place] 00 mg/day (4 gm/day). (Same as: Tylenol Extra Strength) Reglan No Notes: Memoria 08-22 (Same as: l 21:06: Reglan) [place] 00 NS (Bolus) No 1,000 mL, Me moria IV - 1,000 l 21:06: ml/hr, [place] 00 Infuse Over: 1 hr, Route: IV, 1,000, Drug form: INJ, ONCE, Priority: STAT, Dosing Weight 190.909 kg, Start date: 08/22/18 16:06:00 CDT, Stop date: 08/22/18 16:06:00 CDT ketOROLAC No 4 days Memor ia 30 mg/mL 08-22 l injectable 21:06: MEDICATION H ermann solution 00 WASTE Product Size: 30 mg Product Wasted: ___ mg Benadryl No Notes: [facility]oria 6-03 (Same as: l 21:06: Benadryl) Otilio 00 Acetaminoph No Notes: Max Memoria en - acetaminop l 21:06: hen 4000 [place] 00 mg/day (4 gm/day). (Same as: Tylenol Extra Strength) Saline No Notes: Memoria Flush 0.9% 6-03 (Same as: l 21:05: BD [place] 00 Posiflush) Saline No Notes: Memoria Flush 0.9% 6-03 (Same as: l 21:05: BD [place] 00 Posiflush) Saline No Notes: Memoria Flush 0.9% 6-03 (Same as: l 21:05: BD [place] 00 Posiflush) Saline No Notes: Memoria Flush 0.9% 6-03 (Same as: l 21:05: BD [place] 00 Posiflush) ketOROLAC No 15 mg, Memori a 15 mg/mL 5-30 Route: l injectable 08:48: IVP, Drug He rmann solution 00 form: INJ, ONCE, Dosing Weight 188.636, kg, Priority: STAT, Start date: 08/18/18 3:48:00 CDT, Stop date: 08/18/18 3:48:00 CDT ketOROLAC No 15 mg, Memori a 15 mg/mL 5-30 Route: l injectable 08:48: IVP, Drug He rmann solution 00 form: INJ, ONCE, Dosing Weight 188.636, kg, Priority: STAT, Start date: 08/18/18 3:48:00 CDT, Stop date: 08/18/18 3:48:00 CDT ketOROLAC 2019-0 No 15 mg, Memori a 15 mg/mL 5-30 Route: l injectable 08:48: IVP, Drug He rmann solution 00 form: INJ, ONCE, Dosing Weight 188.636, kg, Priority: STAT, Start date: 08/18/18 3:48:00 CDT, Stop date: 08/18/18 3:48:00 CDT ketOROLAC 2018-0 No 15 mg, Memori a 15 mg/mL 5-30 Route: l injectable 08:48: IVP, Drug He rmann solution 00 form: INJ, ONCE, Dosing Weight 188.636, kg, Priority: STAT, Start date: 08/18/18 3:48:00 CDT, Stop date: 08/18/18 3:48:00 CDT {74 2018- Yes See Memoria (apixaban 5 5-30 Instructio l MG Oral 08:45: ns, 2 Otilio Tablet 00 tablets [Eliquis]) BID x 7 } Pack days then [Eliquis 1 tablet 30-Day BID Starter thereafter Pack] , # 50 tab, 0 Refill(s) {74 Yes See Memoria (apixaban 5 5-30 Instructio l MG Oral 08:45: ns, 2 Otilio Tablet 00 tablets [Eliquis]) BID x 7 } Pack days then [Eliquis 1 tablet 30-Day BID Starter thereafter Pack] , # 50 tab, 0 Refill(s) {74 2018- Yes See Memoria (apixaban 5 5-30 Instructio l MG Oral 08:45: ns, 2 Otilio Tablet 00 tablets [Eliquis]) BID x 7 } Pack days then [Eliquis 1 tablet 30-Day BID Starter thereafter Pack] , # 50 tab, 0 Refill(s) {74 Yes See Memoria (apixaban 5 5-30 [...] under tongue, # 15 tab, 0 Refill(s) { Yes See Memoria (Azithromyc 5-30 Instructio l in 250 MG 08:43: ns, Take 2 He rmann Oral Tablet 00 tablets by [Zithromax] mouth the ) } Pack first day [Z-PAKS] then 1 tablet by mouth days 2-5., X 5 day, # 6 tab, 0 Refill(s) Ondansetron Yes 4 mg = 1 Me moria 4 MG 5-30 tab, PO, l Disintegrat 08:43: TID, PRN He rmann ing Tablet 00 Nausea and [Zofran] Vomiting, Dissolve tab under tongue, # 15 tab, 0 Refill(s) { Yes See Memoria (Azithromyc 5-30 Instructio l in 250 MG 08:43: ns, Take 2 He rmann Oral Tablet 00 tablets by [Zithromax] mouth the ) } Pack first day [Z-PAKS] then 1 tablet by mouth days 2-5., X 5 day, # 6 tab, 0 Refill(s) Ondansetron Yes 4 mg = 1 Me moria 4 MG 5-30 tab, PO, l Disintegrat 08:43: TID, PRN He rmann ing Tablet 00 Nausea and [Zofran] Vomiting, Dissolve tab under tongue, # 15 tab, 0 Refill(s) { Yes See Memoria (Azithromyc 5-30 Instructio l in 250 MG 08:43: ns, Take 2 He rmann Oral Tablet 00 tablets by [Zithromax] mouth the ) } Pack first day [Z-PAKS] then 1 tablet by mouth days 2-5., X 5 day, # 6 tab, 0 Refill(s) Ondansetron Yes 4 mg = 1 Me moria 4 MG 5-30 tab, PO, l Disintegrat 08:43: TID, PRN He rmann ing Tablet 00 Nausea and [Zofran] Vomiting, Dissolve tab under tongue, # 15 tab, 0 Refill(s) { Yes See Memoria (Azithromyc 5-30 Instructio l [...] 2:12:00 CDT, Duration: 1 doses or times Omnipaque No 45 Memoria 300 5-30 mL/min, l injectable 07:12: STAT, Jorge n solution 00 Start date: 08/18/18 2:12:00 CDT, Duration: 1 doses or times Omnipaque 0 No 45 Memoria 300 5-30 mL/min, l injectable 07:12: STAT, Jorge n solution 00 Start date: 08/18/18 2:12:00 CDT, Duration: 1 doses or times Omnipaque 0 No 45 Memoria 300 5-30 mL/min, l injectable 07:12: STAT, Jorge n solution 00 Start date: 08/18/18 2:12:00 CDT, Duration: 1 doses or times sucralfate Yes 1 gm = 1 Mem oria 1 g oral 5-24 tab, PO, l tablet 10:52: QID, # 28 Jorge n 00 tab, 0 Refill(s) sucralfate 2018- Yes 1 gm = 1 Mem oria 1 g oral 5-24 tab, PO, l tablet 10:52: QID, # 28 Jorge n 00 tab, 0 Refill(s) sucralfate 2018-0 Yes 1 gm = 1 Mem oria 1 g oral 5-24 tab, PO, l tablet 10:52: QID, # 28 Jorge n 00 tab, 0 Refill(s) sucralfate 2018-0 Yes 1 gm = 1 Mem oria 1 g oral 5-24 tab, PO, l tablet 10:52: QID, # 28 Jorge n 00 tab, 0 Refill(s) Famotidine 2018-0 Yes 20 mg = 1 Me moria 20 MG Oral 5-24 tab, PO, l Tablet 10:51: BID, # 10 Jorge n [Pepcid] 00 tab, 0 Refill(s) Famotidine Yes 20 mg = 1 Me moria 20 MG Oral 5-24 tab, PO, l Tablet 10:51: BID, # 10 Jorge n [Pepcid] 00 tab, 0 Refill(s) Famotidine Yes 20 mg = 1 Me moria 20 MG Oral 5-24 tab, PO, l Tablet 10:51: BID, # 10 Jorge n [Pepcid] 00 tab, 0 Refill(s) Famotidine Yes 20 mg = 1 Me moria 20 MG Oral 5-24 tab, PO, l Tablet 10:51: BID, # 10 Jorge n [Pepcid] 00 tab, 0 Refill(s) Al No Notes: Memoria hydroxide/M 5-24 (aluminum l g 09:32: hydroxide- Otilio hydroxide/s 00 magnesium imethicone hyd-simeth icone 200-200-20 mg/5ml 30 ml ud ZENIA) Xylocaine No Notes: Memori a Viscous 2% 5-24 (Same as: l mucous 09:32: Xylocaine) Kelsey nn membrane 00 solution Al No Notes: Memoria hydroxide/M 5-24 (aluminum l g 09:32: hydroxide- Otil[place] hydroxide/s 00 magnesium imethicone hyd-simeth icone 200-200-20 mg/5ml 30 ml ud ZENIA) Xylocaine No Notes: Memori a Viscous 2% 5-24 (Same as: l mucous 09:32: Xylocaine) Kelsey nn membrane 00 solution Al No Notes: Memoria hydroxide/M 5-24 (aluminum l g 09:32: hydroxide- Otil[place] hydroxide/s 00 magnesium imethicone hyd-simeth icone 200-200-20 mg/5ml 30 ml ud ZENIA) Xylocaine No Notes: Memori a Viscous 2% 5-24 (Same as: l mucous 09:32: Xylocaine) Kelsey nn membrane 00 solution Al No Notes: Memoria hydroxide/M 5-24 (aluminum l g 09:32: hydroxide- [place] hydroxide/s 00 magnesium imethicone hyd-simeth icone 200-200-20 mg/5ml 30 ml ud ZENIA) Xylocaine 2018-0 No Notes: Memori a Viscous 2% 5-24 (Same as: l mucous 09:32: Xylocaine) Kelsey nn membrane 00 solution GI cocktail 0 No 30 mL, Levy mike (aluminum 5-24 Route: PO, l hydroxide/m 09:30: Dosing Herm edwin agnesium 00 Weight hydroxide/l 190.909, idocaine/si kg, ONCE, methicone) STAT, Start date: 08/12/18 4:30:00 CDT, Stop date: 08/12/18 4:30:00 CDT GI cocktail 0 No 30 mL, Levy mike (aluminum 5-24 Route: PO, l hydroxide/m 09:30: Dosing Herm edwin agnesium 00 Weight hydroxide/l 190.909, idocaine/si kg, ONCE, methicone) STAT, Start date: 08/12/18 4:30:00 CDT, Stop date: 08/12/18 4:30:00 CDT GI cocktail 2018-0 No 30 mL, Levy mike (aluminum 5-24 Route: PO, l hydroxide/m 09:30: Dosing Herm edwin agnesium 00 Weight hydroxide/l 190.909, idocaine/si kg, ONCE, methicone) STAT, Start date: 08/12/18 4:30:00 CDT, Stop date: 08/12/18 4:30:00 CDT GI cocktail 2018-0 No 30 mL, Levy mike (aluminum 5-24 Route: PO, l hydroxide/m 09:30: Dosing Herm edwin agnesium 00 Weight hydroxide/l 190.909, idocaine/si kg, ONCE, methicone) STAT, Start date: 08/12/18 4:30:00 CDT, Stop date: 08/12/18 4:30:00 CDT Omnipaque 2018-0 No 45 Memoria 300 5-24 mL/min, l injectable 09:14: STAT, Jorge n solution 00 Start date: 08/12/18 4:14:00 CDT, Stop date: 08/12/18 4:14:00 CDT Omnipaque 2018-0 No 45 Memoria 300 5-24 mL/min, l injectable 09:14: STAT, Jorge n solution 00 Start date: 08/12/18 4:14:00 CDT, Stop date: 08/12/18 4:14:00 CDT Omnipaque No 45 Memoria 300 5-24 mL/min, l injectable 09:14: STAT, Jorge n solution 00 Start date: 08/12/18 4:14:00 CDT, Stop date: 08/12/18 4:14:00 CDT Omnipaque No 45 Memoria 300 5-24 mL/min, l injectable 09:14: STAT, Jorge n solution 00 Start date: 08/12/18 4:14:00 CDT, Stop date: 08/12/18 4:14:00 CDT Acetaminoph No Notes: Do M emoria en 325 MG / 5-24 not exceed l Hydrocodone 08:49: 4gm/day of [place] Bitartrate 00 acetaminop 10 MG Oral hen. (Same Tablet as: [place] [[place] 325/10) 10/325] Acetaminoph No Notes: Do M emoria en 325 MG / 5-24 not exceed l Hydrocodone 08:49: 4gm/day of [place] Bitartrate 00 acetaminop 10 MG Oral hen. (Same Tablet as: [place] [[place] 325/10) 10/325] Acetaminoph No Notes: Do M emoria en 325 MG / 5-24 not exceed l Hydrocodone 08:49: 4gm/day of [place] Bitartrate 00 acetaminop 10 MG Oral hen. (Same Tablet as: [place] [[place] 325/10) 10/325] Acetaminoph No Notes: Do M emoria en 325 MG / 5-24 not exceed l Hydrocodone 08:49: 4gm/day of [place] Bitartrate 00 acetaminop 10 MG Oral hen. (Same Tablet as: [place] [[place] 325/10) 10/325] Ondansetron No Notes: Levy mike 5-24 (Same as: l 05:41: Zofran) [place] 00 MEDICATION WASTE Product Size: 4 mg Product Wasted: ___ mg Morphine No Notes: Memoria 5-24 (Same as: l 05:41: MORPhine Otilio 00 Sulfate) Saline No Notes: Memoria Flush 0.9% 5-24 (Same as: l 05:41: BD [place] 00 Posiflush) Ondansetron No Notes: Levy mike 5-24 (Same as: l 05:41: Zofran) [place] 00 MEDICATION WASTE Product Size: 4 mg Product Wasted: ___ mg Morphine No Notes: Memoria 5-24 (Same as: l 05:41: MORPhine Otilio 00 Sulfate) Saline No Notes: Memoria Flush 0.9% 5-24 (Same as: l 05:41: BD [place] 00 Posiflush) Ondansetron No Notes: Levy mike 5-24 (Same as: l 05:41: Zofran) [place] 00 MEDICATION WASTE Product Size: 4 mg Product Wasted: ___ mg Morphine No Notes: Memoria 5-24 (Same as: l 05:41: MORPhine Otilio 00 Sulfate) Saline No Notes: Memoria Flush 0.9% 5-24 (Same as: l 05:41: BD [place] 00 Posiflush) Ondansetron No Notes: Levy mike 5-24 (Same as: l 05:41: Zofran) [place] 00 MEDICATION WASTE Product Size: 4 mg Product Wasted: ___ mg Morphine No Notes: Memoria 5-24 (Same as: l 05:41: MORPhine Otilio 00 Sulfate) Saline No Notes: Memoria Flush 0.9% 5-24 (Same as: l 05:41: BD [place] 00 Posiflush) Isosorbide No Notes: Memor ia -12 (Same l 14:00: as:Imdur) [place] 00 "Do Not Crush" Take on empty stomach/ full glass of water. Do not crush Hydrochloro No 1 tab, Levy mike thiazide 25 12 Route: PO, l MG / 14:00: Drug Form: [place] Lisinopril 00 TAB, 20 MG Oral Dosing Tablet Weight 200.142, kg, Daily, Start date: 07/31/18 9:00:00 CDT, Duration: 30 day, Stop date: 08/29/18 9:00:00 CDT lisinopril No Notes: Memor ia 5-12 (Same as: l 14:00: Prinivil, Otilio 00 Zestril) Escitalopra No Notes: Leyv mike m 5-12 (Same as: l 14:00: Lexapro) Otilio hydrochloro No Notes: Levy mike thiazide 25 5-12 (Same as: l mg oral 14:00: Hydrodiuri Herm edwin tablet 00 l) With food. Isosorbide No Notes: Memor ia 5-12 (Same l 14:00: as:Imdur) [place] "Do Not Crush" Take on empty stomach/ full glass of water. Do not crush Hydrochloro No 1 tab, Levy mike thiazide 25 5-12 Route: PO, l MG / 14:00: Drug Form: [place] Lisinopril 00 TAB, 20 MG Oral Dosing Tablet Weight 200.142, kg, Daily, Start date: 07/31/18 9:00:00 CDT, Duration: 30 day, Stop date: 08/29/18 9:00:00 CDT lisinopril No Notes: Memor ia 5-12 (Same as: l 14:00: Prinivil, [place] 00 Zestril) Escitalopra No Notes: Levy mike m 5-12 (Same as: l 14:00: Lexapro) [place] hydrochloro No Notes: Levy mike thiazide 25 5-12 (Same as: l mg oral 14:00: Hydrodiuri Herm edwin tablet 00 l) With food. Isosorbide No Notes: Memor ia 5-12 (Same l 14:00: as:Imdur) [place] "Do Not Crush" Take on empty stomach/ full glass of water. Do not crush Hydrochloro No 1 tab, Levy mike thiazide 25 5-12 Route: PO, l MG / 14:00: Drug Form: [place] Lisinopril 00 TAB, 20 MG Oral Dosing Tablet Weight 200.142, kg, Daily, Start date: 07/31/18 9:00:00 CDT, Duration: 30 day, Stop date: 08/29/18 9:00:00 CDT lisinopril No Notes: Memor ia 5-12 (Same as: l 14:00: Prinivil, Otilio Zestril) Escitalopra No Notes: Levy mike m 5-12 (Same as: l 14:00: Lexapro) hydrochloro No Notes: Levy mike thiazide 25 5-12 (Same as: l mg oral 14:00: Hydrodiuri Herm edwin tablet 00 l) With food. Isosorbide No Notes: Memor ia 5-12 (Same l 14:00: as:Imdur) "Do Not Crush" Take on empty stomach/ full glass of water. Do not crush Hydrochloro No 1 tab, Levy mike thiazide 25 5-12 Route: PO, l MG / 14:00: Drug Form: [place] Lisinopril 00 TAB, 20 MG Oral Dosing Tablet Weight 200.142, kg, Daily, Start date: 07/31/18 9:00:00 CDT, Duration: 30 day, Stop date: 08/29/18 9:00:00 CDT lisinopril No Notes: Memor ia 5-12 (Same as: l 14:00: Prinivil, [place] Zestril) Escitalopra No Notes: Levy mike m 5-12 (Same as: l 14:00: Lexapro) hydrochloro No Notes: Levy mike thiazide 25 5-12 (Same as: l mg oral 14:00: Hydrodiuri Herm edwin tablet 00 l) With food. metoprolol No Notes: Memor ia tartrate 5-12 (Same as: l 02:00: Lopressor) metoprolol No Notes: Memor ia tartrate 5-12 (Same as: l 02:00: Lopressor) metoprolol No Notes: Memor ia tartrate 5-12 (Same as: l 02:00: Lopressor) metoprolol No Notes: Memor ia tartrate 5-12 (Same as: l 02:00: Lopressor) [place] Carafate No Notes: May Mem oria 5-11 interfere l 22:00: w/enteral [place] 00 feeds - Take 1 hr before [...] Memoria 5-11 (Same as: l 22:00: Xarelto) Otilio Administer with food Carafate No Notes: May Mem oria 5-11 interfere l 22:00: w/enteral [place] 00 feeds - Take 1 hr before [...] Memoria 5-11 (Same as: l 22:00: Xarelto) [place] Administer with food Carafate No Notes: May Mem oria 5-11 interfere l 22:00: w/enteral [place] 00 feeds - Take 1 [...] Memoria 5-11 (Same as: l 22:00: Xarelto) Otilio Administer with food Carafate No Notes: May Mem oria 5-11 interfere l 22:00: w/enteral [place] 00 feeds - Take 1 hr before [...] Memoria 5-11 (Same as: l 22:00: Xarelto) Otilio 00 Administer with food Protonix No Notes: Memoria 5-11 Tablet l 21:30: should not Otilio 00 be chewed or crushed. (Same as: Protonix) Protonix No Notes: Memoria 5-11 Tablet l 21:30: should not [place] 00 be chewed or crushed. (Same as: Protonix) Protonix No Notes: Memoria 5-11 Tablet l 21:30: should not Otilio 00 be chewed or crushed. (Same as: Protonix) Protonix No Notes: Memoria 5-11 Tablet l 21:30: should not Otilio 00 be chewed or crushed. (Same as: Protonix) Amoxicillin Yes 1 tab, PO, Memoria 875 MG / 5-11 Q12H, X 7 l Clavulanate 20:04: day, # 14 H ermann 125 MG Oral 00 tab, 0 Tablet Refill(s), [Augmentin Pharmacy: 875-mg] [id number] SUMAtriptan Yes 50 mg = 1 M emoria 50 mg oral 5-11 tab, PO, l tablet 20:04: ONCE, PRN Jorge n 00 Headache, # 9 tab, 0 Refill(s), Pharmacy: [id number] Amoxicillin Yes 1 tab, PO, Memoria 875 MG / 5-11 Q12H, X 7 l Clavulanate 20:04: day, # 14 H ermann 125 MG Oral 00 tab, 0 Tablet Refill(s), [Augmentin Pharmacy: 875-mg] [facility] SUMAtriptan Yes 50 mg = 1 M emoria 50 mg oral 5-11 tab, PO, l tablet 20:04: ONCE, PRN Jorge n 00 Headache, # 9 tab, 0 Refill(s), Pharmacy: [facility] Amoxicillin Yes 1 tab, PO, Memoria 875 MG / 5-11 Q12H, X 7 l Clavulanate 20:04: day, # 14 H ermann 125 MG Oral 00 tab, 0 Tablet Refill(s), [Augmentin Pharmacy: 875-mg] [facility] SUMAtriptan Yes 50 mg = 1 M emoria 50 mg oral 5-11 tab, PO, l tablet 20:04: ONCE, PRN Jorge n 00 Headache, # 9 tab, 0 Refill(s), Pharmacy: [facility] Amoxicillin Yes 1 tab, PO, Memoria 875 MG / 5-11 Q12H, X 7 l Clavulanate 20:04: day, # 14 H ermann 125 MG Oral 00 tab, 0 Tablet Refill(s), [Augmentin Pharmacy: 875-mg] [facility] SUMAtriptan Yes 50 mg = 1 M emoria 50 mg oral 5-11 tab, PO, l tablet 20:04: ONCE, PRN Jorge n 00 Headache, # 9 tab, 0 Refill(s), Pharmacy: [facility] hydrOXYzine No Notes: Levy mike hydrochlori 5-11 (Same as: l de 19:50: Atarax) [place] 00 Avoid alcohol. hydrOXYzine No Notes: Levy mike hydrochlori 5-11 (Same as: l de 19:50: Atarax) Avoid alcohol. hydrOXYzine No Notes: Levy mike hydrochlori 5-11 (Same as: l de 19:50: Atarax) Avoid alcohol. hydrOXYzine No Notes: Levy mike hydrochlori 5-11 (Same as: l de 19:50: Atarax) [place] 00 Avoid alcohol. ketOROLAC No 4 days Memor ia 15 mg/mL 5-11 l injectable 19:14: MEDICATION H ermann solution 00 WASTE Product Size: 30 mg Product Wasted: ___ mg ketOROLAC 2018-0 No 4 days Memor ia 15 mg/mL 5-11 l injectable 19:14: MEDICATION H ermann solution 00 WASTE Product Size: 30 mg Product Wasted: ___ mg ketOROLAC 2018- No 4 days Memor ia 15 mg/mL 5-11 l injectable 19:14: MEDICATION H ermann solution 00 WASTE Product Size: 30 mg Product Wasted: ___ mg ketOROLAC 2019 No 4 days Memor ia 15 mg/mL 5-11 l injectable 19:14: MEDICATION H ermann solution 00 WASTE Product Size: 30 mg Product Wasted: ___ mg Sumatriptan No Notes: Levy mike 5-11 (Same as: l 15:21: Imirtex) Acetaminoph No Notes: Levy mike en 325 MG / 5-11 (acetamino l butalbital 15:21: phen-butal H ermann 50 MG / 00 bital-caff Caffeine 40 eine MG Oral 325-50-40m Tablet g) Do not exceed 4 gm/day of acetaminop hen. (Same as: Esgic, Fioricet) Sumatriptan No Notes: Levy mike 5-11 (Same as: l 15:21: Imirtex) Acetaminoph No Notes: Levy mike en 325 MG / 5-11 (acetamino l butalbital 15:21: phen-butal H ermann 50 MG / 00 bital-caff Caffeine 40 eine MG Oral 325-50-40m Tablet g) Do not exceed 4 gm/day of acetaminop hen. (Same as: Esgic, Fioricet) Sumatriptan No Notes: Levy mike 5-11 (Same as: l 15:21: Imirtex) Acetaminoph No Notes: Levy mike en 325 MG / 5-11 (acetamino l butalbital 15:21: phen-butal H ermann 50 MG / 00 bital-caff Caffeine 40 eine MG Oral 325-50-40m Tablet g) Do not exceed 4 gm/day of acetaminop hen. (Same as: Esgic, Fioricet) Sumatriptan No Notes: Levy mike 5-11 (Same as: l 15:21: Imirtex) [place] 00 Acetaminoph No Notes: Levy mike en 325 MG / 5-11 (acetamino l butalbital 15:21: phen-butal H ermann 50 MG / 00 bital-caff Caffeine 40 eine MG Oral 325-50-40m Tablet g) Do not exceed 4 gm/day of acetaminop hen. (Same as: Esgic, Fioricet) Amoxicillin No Notes: Levy mike 875 MG / 5-11 With food. l Clavulanate 14:00: (Same as: H ermann 125 MG Oral 00 Augmentin Tablet 875) [Augmentin 875-mg] heparin No Notes: Memoria 5-11 porcine l 14:00: heparin Otilio 00 Amoxicillin No Notes: Levy mike 875 MG / 5-11 With food. l Clavulanate 14:00: (Same as: H ermann 125 MG Oral 00 Augmentin Tablet 875) [Augmentin 875-mg] heparin No Notes: Memoria 5-11 porcine l 14:00: heparin Otilio Amoxicillin No Notes: Levy mike 875 MG / 5-11 With food. l Clavulanate 14:00: (Same as: H ermann 125 MG Oral 00 Augmentin Tablet 875) [Augmentin 875-mg] heparin No Notes: Memoria 5-11 porcine l 14:00: heparin Otilio 00 Amoxicillin No Notes: Levy mike 875 MG / 5-11 With food. l Clavulanate 14:00: (Same as: H ermann 125 MG Oral 00 Augmentin Tablet 875) [Augmentin 875-mg] heparin No Notes: Memoria 5-11 porcine l 14:00: heparin Otilio 00 Acetaminoph No Notes: Levy mike en 325 MG / 5-11 (Same as: l Hydrocodone 06:20: [place] Kelsey nn Bitartrate 00 325/5) Do 5 MG Oral not exceed Tablet 4gm/day of [[place] acetaminop 5/325] hen. Acetaminoph No Notes: Levy mike en 325 MG / 11 (Same as: l Hydrocodone 06:20: [place] Kelsey nn Bitartrate 00 325/5) Do 5 MG Oral not exceed Tablet 4gm/day of [[place] acetaminop 5/325] hen. Acetaminoph No Notes: Levy mike en 325 MG / 11 (Same as: l Hydrocodone 06:20: [place] Kelsey nn Bitartrate 00 325/5) Do 5 MG Oral not exceed Tablet 4gm/day of [[place] acetaminop 5/325] hen. Acetaminoph No Notes: Levy mike en 325 MG / 07-30 (Same as: l Hydrocodone 06:20: [place] Kelsey nn Bitartrate 00 325/5) Do 5 MG Oral not exceed Tablet 4gm/day of [[place] acetaminop 5/325] hen. hydrOXYzine Yes 50 mg, PO, Memoria hydrochlori 5-11 ONCE, 0 l de 06:14: Refill(s) [place] hydrOXYzine Yes 50 mg, PO, Memoria hydrochlori 5-11 ONCE, 0 l de 06:14: Refill(s) [place] hydrOXYzine Yes 50 mg, PO, Memoria hydrochlori 5-11 ONCE, 0 l de 06:14: Refill(s) [place] hydrOXYzine Yes 50 mg, PO, Memoria hydrochlori 5-11 ONCE, 0 l de 06:14: Refill(s) [place] atorvastati Yes 40 mg = 1 M emoria n 40 mg 5-11 tab, PO, l oral tablet 06:13: Daily, 0 He rmann 00 Refill(s) Hydrochloro Yes 1 tab, PO, Memoria thiazide 25 5-11 Daily, # l MG / 06:13: 90 tab, 1 [place] Lisinopril 00 Refill(s) 20 MG Oral Tablet atorvastati 2019-0 Yes 40 mg = 1 M emoria n 40 mg 5-11 tab, PO, l oral tablet 06:13: Daily, 0 He rmann 00 Refill(s) Hydrochloro 2019-0 Yes 1 tab, PO, Memoria thiazide 25 5-11 Daily, # l MG / 06:13: 90 tab, 1 [place] Lisinopril 00 Refill(s) 20 MG Oral Tablet atorvastati 2019 Yes 40 mg = 1 M emoria n 40 mg 5-11 tab, PO, l oral tablet 06:13: Daily, 0 He rmann 00 Refill(s) Hydrochloro 2019-0 Yes 1 tab, PO, Memoria thiazide 25 5-11 Daily, # l MG / 06:13: 90 tab, 1 [place] Lisinopril 00 Refill(s) 20 MG Oral Tablet atorvastati 2019 Yes 40 mg = 1 M emoria n 40 mg 5-11 tab, PO, l oral tablet 06:13: Daily, 0 rmann 00 Refill(s) Hydrochloro 2019-0 Yes 1 tab, PO, Memoria thiazide 25 5-11 Daily, # l MG / 06:13: 90 tab, 1 [place] Lisinopril 00 Refill(s) 20 MG Oral Tablet isosorbide 2019- Yes 30 mg = 1 Me moria mononitrate 5-11 tab, PO, l 30 mg oral 06:12: QAM, 0 Kelsey nn tablet, 00 Refill(s) extended release isosorbide 2019-0 Yes 30 mg = 1 Me moria mononitrate 5-11 tab, PO, l 30 mg oral 06:12: QAM, 0 Kelsey nn tablet, 00 Refill(s) extended release isosorbide 2019-0 Yes 30 mg = 1 Me moria mononitrate 5-11 tab, PO, l 30 mg oral 06:12: QAM, 0 Kelsey nn tablet, 00 Refill(s) extended release isosorbide 2019-0 Yes 30 mg = 1 Me moria mononitrate 5-11 tab, PO, l 30 mg oral 06:12: QAM, 0 Kelsey nn tablet, 00 Refill(s) extended release rivaroxaban 2019- Yes 20 mg = 1 M emoria 20 MG Oral 5-11 tab, PO, l Tablet 06:11: QPM, 0 Otilio [Xarelto] Refill(s) escitalopra 2019-0 Yes 20 mg = 1 M emoria m 20 mg 5-11 tab, PO, l oral tablet 06:11: Daily, 0 rm Refill(s) rivaroxaban 2019-0 Yes 20 mg = 1 M emoria 20 MG Oral 5-11 tab, PO, l Tablet 06:11: QPM, 0 Otilio [Xarelto] Refill(s) escitalopra 2019-0 Yes 20 mg = 1 M emoria m 20 mg 5-11 tab, PO, l oral tablet 06:11: Daily, 0 rm Refill(s) rivaroxaban 2019-0 Yes 20 mg = 1 M emoria 20 MG Oral 5-11 tab, PO, l Tablet 06:11: QPM, 0 [place] [Xarelto] Refill(s) escitalopra 2019-0 Yes 20 mg = 1 M emoria m 20 mg 5-11 tab, PO, l oral tablet 06:11: Daily, 0 rm Refill(s) rivaroxaban 2019-0 Yes 20 mg = 1 M emoria 20 MG Oral 5-11 tab, PO, l Tablet 06:11: QPM, 0 [place] [Xarelto] Refill(s) escitalopra 2019-0 Yes 20 mg = 1 M emoria m 20 mg 5-11 tab, PO, l oral tablet 06:11: Daily, 0 rm Refill(s) pantoprazol 2019-0 Yes 40 mg, PO, Memoria e 5-11 Daily, 0 l 06:10: Refill(s) pantoprazol 2019-0 Yes 40 mg, PO, Memoria e 5-11 Daily, 0 l 06:10: Refill(s) pantoprazol 2019-0 Yes 40 mg, PO, Memoria e 5-11 Daily, 0 l 06:10: Refill(s) pantoprazol 2019-0 Yes 40 mg, PO, Memoria e 5-11 Daily, 0 l 06:10: Refill(s) tramadol 2019-0 Yes 50 mg = 1 [place] mike hydrochlori 5-11 tab, PO, l de 50 MG 06:09: TID, 0 [place] Oral Tablet 00 Refill(s) tramadol 2019-0 Yes 50 mg = 1 [place] mike hydrochlori 5-11 tab, PO, l de 50 MG 06:09: TID, 0 [place] Oral Tablet 00 Refill(s) tramadol 2019-0 Yes 50 mg = 1 [place] mike hydrochlori 5-11 tab, PO, l de 50 MG 06:09: TID, 0 [place] Oral Tablet 00 Refill(s) tramadol 2019-0 Yes 50 mg = 1 [place] mike hydrochlori 5-11 tab, PO, l de 50 MG 06:09: TID, 0 [place] Oral Tablet 00 Refill(s) metoprolol 2019-0 Yes 25 mg = 1 Me moria tartrate 25 5-11 tab, PO, l mg oral 06:08: BID, 0 [place] tablet 00 Refill(s) metoprolol 2019-0 Yes 25 mg = 1 Me [place] tartrate 25 5-11 tab, PO, l mg oral 06:08: BID, 0 [place] tablet 00 Refill(s) metoprolol 2019-0 Yes 25 mg = 1 Me [place] tartrate 25 5-11 tab, PO, l mg oral 06:08: BID, 0 [place] tablet 00 Refill(s) metoprolol 2019-0 Yes 25 mg = 1 Me [place] tartrate 25 5-11 tab, PO, l mg oral 06:08: BID, 0 [place] tablet 00 Refill(s) NS 1,000 mL 0 No 1,000 mL, M emoria 07-30 Rate: 100 l 04:33: ml/hr, O[place]io 00 Infuse over: 10 hr, Route: IV, Dosing Weight 187.682 kg, Total Volume: 1,000, Start date: 07/29/18 23:33:00 CDT, Duration: 30 day, Stop date: 08/28/18 23:32:00 CDT, 3.14, m2 NS 1,000 mL 0 No 1,000 mL, M emoria 07-30 Rate: 100 l 04:33: ml/hr, Otilio 00 Infuse over: 10 hr, Route: IV, Dosing Weight 187.682 kg, Total Volume: 1,000, Start date: 07/29/18 23:33:00 CDT, Duration: 30 day, Stop date: 08/28/18 23:32:00 CDT, 3.14, m2 NS 1,000 mL 2019- No 1,000 mL, M emoria 5-11 Rate: 100 l 04:33: ml/hr, [place] 00 Infuse over: 10 hr, Route: IV, Dosing Weight 187.682 kg, Total Volume: 1,000, Start date: 07/29/18 23:33:00 CDT, Duration: 30 day, Stop date: 08/28/18 23:32:00 CDT, 3.14, m2 NS 1,000 mL 2019 No 1,000 mL, M emoria 5-11 Rate: 100 l 04:33: ml/hr, [place] 00 Infuse over: 10 hr, Route: IV, Dosing Weight 187.682 kg, Total Volume: 1,000, Start date: 07/29/18 23:33:00 CDT, Duration: 30 day, Stop date: 08/28/18 23:32:00 CDT, 3.14, m2 Nitroglycer 2019- No Notes: Levy mike in -11 (Same l 04:31: as:Nitroqu ick, Nitrostat) "Do Not Crush" Sublingual tablet Morphine No Notes: Memoria 5-11 (Same l 04:31: as:MORPhin e Sulfate) Ondansetron 0 No Notes: Levy mike 5-11 (Same as: l 04:31: Zofran) MEDICATION WASTE Product Size: 4 mg Product Wasted: ___ mg Glucagon 2019-0 No 1 mg, Memoria 5-11 Route: IM, l 04:31: Drug form: PDR/INJ, PRN, Dosing Weight 187.682, kg, PRN Blood Glucose Results, Start date: 07/29/18 23:31:00 CDT, Duration: 30 day, Stop date: 08/28/18 23:30:00 CDT Dextrose 2019-0 No 25 gm, 50 Levy mike 50% Syringe 5-11 mL, Route: l 04:31: IVP, Drug Form: INJ, Dosing Weight 187.682, kg, PRN, PRN Blood Glucose Results, Start date: 07/29/18 23:31:00 CDT, Duration: 30 day, Stop date: 08/28/18 23:30:00 CDT Nitroglycer 2018-0 No Notes: Levy mike in 07-30 (Same l 04:31: as:Nitroqu [place] 00 ick, Nitrostat) "Do Not Crush" Sublingual tablet Morphine 2018-0 No Notes: Memoria 5- (Same l 04:31: as:MORPhin [place] 00 e Sulfate) Ondansetron 2018-0 No Notes: Levy mike - (Same as: l 04:31: Zofran) [place] 00 MEDICATION WASTE Product Size: 4 mg Product Wasted: ___ mg Glucagon No 1 mg, Memoria 07-30 Route: IM, l 04:31: Drug form: [place] 00 PDR/INJ, PRN, Dosing Weight 187.682, kg, PRN Blood Glucose Results, Start date: 07/29/18 23:31:00 CDT, Duration: 30 day, Stop date: 08/28/18 23:30:00 CDT Dextrose 2018-0 No 25 gm, 50 Levy mike 50% Syringe 5-11 mL, Route: l 04:31: IVP, Drug [place] 00 Form: INJ, Dosing Weight 187.682, kg, PRN, PRN Blood Glucose Results, Start date: 07/29/18 23:31:00 CDT, Duration: 30 day, Stop date: 08/28/18 23:30:00 CDT Nitroglycer 2018-0 No Notes: Levy mike in 07-30 (Same l 04:31: as:Nitroqu [place] 00 ick, Nitrostat) "Do Not Crush" Sublingual tablet Morphine 2018-0 No Notes: Memoria - (Same l 04:31: as:MORPhin [place] 00 e Sulfate) Ondansetron 2018-0 No Notes: Levy mike -11 (Same as: l 04:31: Zofran) [place] 00 MEDICATION WASTE Product Size: 4 mg Product Wasted: ___ mg Glucagon 0 No 1 mg, Memoria 07-30 Route: IM, l 04:31: Drug form: [place] 00 PDR/INJ, PRN, Dosing Weight 187.682, kg, PRN Blood Glucose Results, Start date: 07/29/18 23:31:00 CDT, Duration: 30 day, Stop date: 08/28/18 23:30:00 CDT Dextrose 2019-0 No 25 gm, 50 Levy mike 50% Syringe 5-11 mL, Route: l 04:31: IVP, Drug [place] 00 Form: INJ, Dosing Weight 187.682, kg, PRN, PRN Blood Glucose Results, Start date: 07/29/18 23:31:00 CDT, Duration: 30 day, Stop date: 08/28/18 23:30:00 CDT Nitroglycer 2018-0 No Notes: Levy mike in -11 (Same l 04:31: as:Nitroqu ick, Nitrostat) "Do Not Crush" Sublingual tablet Morphine 2018-0 No Notes: Memoria 5-11 (Same l 04:31: as:MORPhin e Sulfate) Ondansetron 2018-0 No Notes: Levy mike 5-11 (Same as: l 04:31: Zofran) MEDICATION WASTE Product Size: 4 mg Product Wasted: ___ mg Glucagon 2018- No 1 mg, Memoria 5-11 Route: IM, l 04:31: Drug form: [place] 00 PDR/INJ, PRN, Dosing Weight 187.682, kg, PRN Blood Glucose Results, Start date: 07/29/18 23:31:00 CDT, Duration: 30 day, Stop date: 08/28/18 23:30:00 CDT Dextrose 2019-0 No 25 gm, 50 Levy mike 50% Syringe 5-11 mL, Route: l 04:31: IVP, Drug Form: INJ, Dosing Weight 187.682, kg, PRN, PRN Blood Glucose Results, Start date: 07/29/18 23:31:00 CDT, Duration: 30 day, Stop date: 08/28/18 23:30:00 CDT Dilaudid 2018-0 No Notes: Memoria 5-11 Same as l 03:16: Dilaudid Dilaudid 2018-0 No Notes: Memoria 5-11 Same as l 03:16: Dilaudid Dilaudid 2019-0 No Notes: Memoria 5-11 Same as l 03:16: Dilaudid [place] 00 Dilaudid 2019-0 No Notes: Memoria 5-11 Same as l 03:16: Dilaudid Hydromorpho 2019-0 No 0.5 mg, Mem oria ne 5-11 Route: l 03:08: IVP, ONCE, Dosing Weight 187.682, kg, Priority: STAT, Start date: 07/29/18 22:08:00 CDT, Stop date: 07/29/18 22:08:00 CDT Hydromorpho 2019-0 No 0.5 mg, Mem oria ne 5-11 Route: l 03:08: IVP, ONCE, Dosing Weight 187.682, kg, Priority: STAT, Start date: 07/29/18 22:08:00 CDT, Stop date: 07/29/18 22:08:00 CDT Hydromorpho 2019-0 No 0.5 mg, Mem oria ne 5-11 Route: l 03:08: IVP, ONCE, Dosing Weight 187.682, kg, Priority: STAT, Start date: 07/29/18 22:08:00 CDT, Stop date: 07/29/18 22:08:00 CDT Hydromorpho 2018-0 No 0.5 mg, Mem oria ne 5-11 Route: l 03:08: IVP, ONCE, Dosing Weight 187.682, kg, Priority: STAT, Start date: 07/29/18 22:08:00 CDT, Stop date: 07/29/18 22:08:00 CDT Nitroglycer 2018-0 No Notes: Levy mike in 0.4 MG 5-11 (Same l Sublingual 02:44: as:Nitroqu [place] Tablet 00 ick, Nitrostat) "Do Not Crush" Sublingual tablet Nitroglycer 2019-0 No Notes: Levy mike in 0.4 MG 5-11 (Same l Sublingual 02:44: as:Nitroqu [place] Tablet 00 ick, Nitrostat) "Do Not Crush" Sublingual tablet Nitroglycer 2018-0 No Notes: Levy mike in 0.4 MG 5-11 (Same l Sublingual 02:44: as:Nitroqu [place] Tablet 00 ick, Nitrostat) "Do Not Crush" Sublingual tablet Nitroglycer 0 No Notes: Levy mike in 0.4 MG 5-11 (Same l Sublingual 02:44: as:Nitroqu [place] Tablet 00 ick, Nitrostat) "Do Not Crush" Sublingual tablet Amoxicillin 2019-0 No 1 tab, Levy mike 875 MG / 5-11 Route: PO, l Clavulanate 02:38: Drug Form: [place] 125 MG Oral 00 TAB, Tablet Dosing Weight 187.682, kg, ONCE, STAT, Start date: 07/29/18 21:38:00 CDT, Stop date: 07/29/18 21:38:00 CDT Amoxicillin 2019-0 No 1 tab, Levy mike 875 MG / 5-11 Route: PO, l Clavulanate 02:38: Drug Form: [place] 125 MG Oral 00 TAB, Tablet Dosing Weight 187.682, kg, ONCE, STAT, Start date: 07/29/18 21:38:00 CDT, Stop date: 07/29/18 21:38:00 CDT Amoxicillin 2019-0 No 1 tab, Levy mike 875 MG / 5-11 Route: PO, l Clavulanate 02:38: Drug Form: [place] 125 MG Oral 00 TAB, Tablet Dosing Weight 187.682, kg, ONCE, STAT, Start date: 07/29/18 21:38:00 CDT, Stop date: 07/29/18 21:38:00 CDT Amoxicillin 2019-0 No 1 tab, Levy mike 875 MG / 5-11 Route: PO, l Clavulanate 02:38: Drug Form: [place] 125 MG Oral 00 TAB, Tablet Dosing Weight 187.682, kg, ONCE, STAT, Start date: 07/29/18 21:38:00 CDT, Stop date: 07/29/18 21:38:00 CDT Amoxicillin 2018-0 No Notes: Levy mike 875 MG / 5-11 With food. l Clavulanate 02:06: (Same as: H [place] 125 MG Oral 00 Augmentin Tablet 875) [Augmentin 875-mg] Amoxicillin 2019-0 No Notes: Levy mike 875 MG / 5-11 With food. l Clavulanate 02:06: (Same as: [place] 125 MG Oral 00 Augmentin Tablet 875) [Augmentin 875-mg] Amoxicillin 2019-0 No Notes: Levy mike 875 MG / 5-11 With food. l Clavulanate 02:06: (Same as: [place] 125 MG Oral 00 Augmentin Tablet 875) [Augmentin 875-mg] Amoxicillin 2019-0 No Notes: Levy mike 875 MG / 5-11 With food. l Clavulanate 02:06: (Same as: H [place] 125 MG Oral 00 Augmentin Tablet 875) [Augmentin 875-mg] Aspirin 81 2018- No Notes: Memor ia MG Chewable 5-11 Take with l Tablet 01:52: food. Ondansetron 2018- No Notes: Levy mike 5-11 (Same as: l 01:52: Zofran) [place] 00 MEDICATION WASTE Product Size: 4 mg Product Wasted: ___ mg Morphine 2019-0 No Notes: Memoria 5-11 (Same l 01:52: as:MORPhin [place] 00 e Sulfate) Aspirin 81 2018- No Notes: Memor ia MG Chewable 5-11 Take with l Tablet 01:52: food. Ondansetron 2018- No Notes: Levy mike 5-11 (Same as: l 01:52: Zofran) [place] 00 MEDICATION WASTE Product Size: 4 mg Product Wasted: ___ mg Morphine 2019-0 No Notes: Memoria 5-11 (Same l 01:52: as:MORPhin [place] 00 e Sulfate) Aspirin 81 2019-0 No Notes: Memor ia MG Chewable 5-11 Take with l Tablet 01:52: food. Ondansetron 2019-0 No Notes: Levy mike 5-11 (Same as: l 01:52: Zofran) [place] 00 MEDICATION WASTE Product Size: 4 mg Product Wasted: ___ mg Morphine 2019-0 No Notes: Memoria 5-11 (Same l 01:52: as:MORPhin [place] 00 e Sulfate) Aspirin 81 2019-0 No Notes: Memor ia MG Chewable 5-11 Take with l Tablet 01:52: food. Ondansetron No Notes: Levy mike 5-11 (Same as: l 01:52: Zofran) MEDICATION WASTE Product Size: 4 mg Product Wasted: ___ mg Morphine No Notes: Memoria 5-11 (Same l 01:52: as:MORPhin e Sulfate) Saline No Notes: Memoria Flush 0.9% 5-11 (Same as: l 00:35: BD [place] 00 Posiflush) Saline No Notes: Memoria Flush 0.9% 5-11 (Same as: l 00:35: BD [place] 00 Posiflush) Saline No Notes: Memoria Flush 0.9% 5-11 (Same as: l 00:35: BD [place] 00 Posiflush) Saline No Notes: Memoria Flush 0.9% 5-11 (Same as: l 00:35: BD [place] Posiflush) omeprazole 2017-0 Yes 40mg QD Take [address] (PRILOSEC) 7-17 by mouth [facility] 40 MG 14:02: daily. Medical capsule 43 [facility] lovastatin 0 Yes 40mg QD Take [address] (MEVACOR) 7-17 by mouth [facility] 40 MG 14:02: nightly. Medical tablet 43 [facility] omeprazole 20170 Yes 40mg QD Take [address] (PRILOSEC) 7-17 by mouth [facility] 40 MG 14:02: daily. Medical capsule 43 [facility] lovastatin 2017-0 Yes 40mg QD Take [address] (MEVACOR) 7-17 by mouth [facility] 40 MG 14:02: nightly. Medical tablet 43 [facility] tamsulosin 2017-0 Yes .4mg QD Take [facility]FLOMAX[facility] 7-17 capsule [facility] 0.4 mg Cp24 00:00: (0.4 mg Med ical 24 hr 00 total) by Center capsule mouth daily. tamsulosin 2017-0 Yes .4mg QD Take 1 [facility] (FLOMAX[facility] 7-17 [facility] 0.4 mg Cp24 00:00: (0.4 mg Med ical 24 hr 00 total) by Center capsule mouth daily. HYDROcodone Yes 1{tbl} Take 1 Tab Univers -acetaminop 6-26 by mouth [facility]y of hen (NORCO) 18:23: every 6 Jorge as 10-325 mg 04 (six) Medical tablet hours as Branch needed. carisoprodo Yes 350mg Take 350 U nivers l (SOMA) 6-26 mg by ity of 350 mg 18:23: mouth 4 [place] tablet 04 (four) Medical times Branch daily. enalapril-h Yes 2{tbl} Take 2 Un rosanna ydrochlorot 6-26 Tabs by ity o f hiazide 18:22: mouth [place] (VASERETIC) 35 daily. Medica l 10-25 mg Branch per tablet paroxetine Yes 10mg Take 10 mg U nivers (PAXIL) 10 6-26 by mouth ity o f mg tablet 18:22: daily. [place] 35 Medical Branch Golytely Golytely No 4000mL Sulyytely M atagor 236 236 236 da gram-22.74 [...] DAILY MOUTH NEEDED NEEDED TWICE DAILY NEEDED Immunizations Ordered Filled Immunization Date Status Comments [facility] e Immunization Name Name Influenza Virus 2020-07-27 Completed [facility]it y of Vaccine [facility] .5 mL 00:00:00 [facility] IM 6+ MO Branch Influenza Virus 2020-07-27 Completed [facility]it y of Vaccine [facility] .5 mL 00:00:00 [facility] IM 6+ MO Branch Influenza Virus 2020-07-27 Completed [facility]it [facility] of [facility] .5 mL 00:00:00 [place] [facility] 6+ MO [facility] Influenza Virus 2020-07-27 Completed [facility]it [facility] of [facility]ine [facility] .5 mL 00:00:00 [facility] IM 6+ MO Branch Influenza Virus 2020-07-27 Completed Universit y of Vaccine [facility] .5 mL 00:00:00 [facility] IM 6+ MO Branch Influenza Virus 2020-07-27 Completed Universit y of [facility]ine [facility] .5 mL 00:00:00 [facility] IM 6+ MO Branch Influenza Virus 2020-07-27 Completed Universit y of Vaccine [facility] .5 mL 00:00:00 [facility] [place] [facility] 6+ MO Branch Influenza Virus 2020-07-27 Completed Universit y of Vaccine [facility] .5 mL 00:00:00 [facility] 6+ MO Branch Influenza Virus 2020-07-27 Completed Universit y of Vaccine [facility] .5 mL 00:00:00 [facility] 6+ MO Branch Influenza Virus 2020-07-27 Completed Universit y of Vaccine [facility] .5 mL 00:00:00 [facility] [place] [facility] 6+ MO Branch Vital Signs Vital Name Observation Time Observation Value Comments Source Systolic blood 2022-07-28 20:57:00 108 mm[Hg] Univer sity of pressure [facility] Diastolic blood 2022-07-28 20:57:00 70 mm[Hg] Unive rsity of pressure [facility] Heart rate 2022-07-28 20:57:00 80 /min [facility] Body temperature 2022-07-28 20:57:00 35.5 Meliza [facility] 2022-07-28 20:57:00 17 /min [facility] Oxygen saturation in 2022-07-28 20:57:00 96 /min [facility] Arterial blood by [facility] Pulse oximetry [place] Body weight 2022-07-28 08:34:[address] [facility] BMI 2022-07-28 08:34:00 62.03 kg/m2 [facility] Body height 2022-07-28 03:29:[address] [facility] Systolic blood 2022-03-27 03:43:02 133 mm[Hg] Univer sity of pressure [place] [facility] Diastolic blood 2022-03-27 03:43:02 77 mm[Hg] Unive rsity of pressure [place] [facility] Heart rate 2022-03-27 03:43:02 82 /min [facility] [place] [facility] Respiratory rate 2022-03-27 03:43:02 18 /min Univ ersity [facility] [place] [facility] Oxygen saturation in 2022-03-27 03:43:02 96 /min [facility] of Arterial blood by [place] [employer] carol Pulse oximetry Branch Body height 2022-03-26 23:01:00 182.9 cm [facility] [place] [facility] Body weight 2022-03-26 23:01:00 206.432 kg [facility] [place] [facility] BMI 2022-03-26 23:01:00 61.72 kg/m2 [facility] [place] [facility] [place] Body temperature 2022-03-26 23:00:00 37.11 Meliza [facility] [place] [facility] Systolic blood 2021-10-05 16:27:00 104 mm[Hg] Univer sity of pressure [place] [facility] Diastolic blood 2021-10-05 16:27:00 74 mm[Hg] Unive rsity of pressure [place] [facility] Heart rate 2021-10-05 16:27:00 73 /min [facility] [place] [facility] Body temperature 2021-10-05 16:27:00 36.22 Meliza [facility] [place] [facility] Respiratory rate 2021-10-05 16:27:00 18 /min Univ ersity [facility] [place] [facility] Oxygen saturation in 2021-10-05 16:27:00 96 /min [facility] of Arterial blood by [place] [employer] [facility] Pulse oximetry Branch Body weight 2021-10-05 09:28:00 201.488 kg [facility] [place] [facility] BMI 2021-10-05 09:28:00 60.24 kg/m2 [facility] [place] [facility] Body height 2021-10-03 02:38:00 182.9 cm [facility] [place] [facility] Systolic blood 2021-04-13 10:00:00 115 mm[Hg] Univer sity of pressure [place] [facility] Diastolic blood 2021-04-13 10:00:00 75 mm[Hg] Unive rsity of pressure [place] [facility] Heart rate 2021-04-13 10:00:00 90 /min [facility] [place] [facility] Respiratory rate 2021-04-13 10:00:00 19 /min Univ ersity [facility] [place] [facility] Oxygen saturation in 2021-04-13 10:00:00 98 /min University of Arterial blood by [place] [employer] carol Pulse oximetry Branch Body temperature 2021-04-13 07:00:00 37.83 Meliza [facility] [place] [facility] Body weight 2021-04-13 04:38:00 218.634 kg [facility] [place] [facility] BMI 2021-04-13 04:38:00 65.37 kg/m2 [facility] [place] [facility] Systolic blood 2021-03-04 01:01:00 159 mm[Hg] Univer sity of pressure [place] [facility] Diastolic blood 2021-03-04 01:01:00 105 mm[Hg] Unive rsity of pressure [place] [facility] Heart rate 2021-03-04 01:01:00 86 /min [facility] [place] [facility] Respiratory rate 2021-03-04 01:01:00 20 /min Univ ers[facility] [place] [facility] Oxygen saturation in 2021-03-04 01:01:00 96 /min University of Arterial blood by [facility] carol Pulse oximetry Branch Body temperature 2021-03-03 23:22:10 36.94 Meliza [facility] [place] [facility] Body weight 2021-03-03 22:44:00 221.628 kg [facility] [place] [facility] BMI 2021-03-03 22:44:00 66.27 kg/m2 [facility] [place] [facility] Systolic blood 2020-12-31 06:00:00 125 mm[Hg] Univer sity of pressure [place] [facility] Diastolic blood 2020-12-31 06:00:00 52 mm[Hg] Unive rsity of pressure [place] [facility] Heart rate 2020-12-31 06:00:00 84 /min [facility] [place] [facility] Respiratory rate 2020-12-31 06:00:00 24 /min Univ ers[facility] [place] [facility] Oxygen saturation in 2020-12-31 06:00:00 97 /min University of Arterial blood by [place] [employer] carol Pulse oximetry Branch Body temperature 2020-12-31 03:22:00 36.89 Meliza [facility] [place] [facility] Body weight 2020-12-31 03:22:00 226.799 kg [facility] [place] [facility] BMI 2020-12-31 03:22:00 67.81 kg/m2 [facility] [place] [facility] Systolic blood 2020-10-15 04:50:00 133 mm[Hg] Univer sity of pressure [place] [facility] Diastolic blood 2020-10-15 04:50:00 87 mm[Hg] Unive rsity of pressure [place] [facility] Heart rate 2020-10-15 04:50:00 78 /min [facility] [place] [facility] Respiratory rate 2020-10-15 04:50:00 20 /min Univ ers[facility] [place] [facility] Oxygen saturation in 2020-10-15 04:50:00 96 /min [facility] of Arterial blood by [facility] Pulse oximetry Branch Body temperature 2020-10-15 00:11:00 36.83 Meliza [facility] [place] [facility] Body weight 2020-10-15 00:11:00 226.799 kg [facility] [place] [facility] BMI 2020-10-15 00:11:00 67.81 kg/m2 [facility] [place] [facility] Systolic blood 2020-07-27 17:39:00 138 mm[Hg] Univer sity of pressure [place] [facility] Diastolic blood 2020-07-27 17:39:00 79 mm[Hg] Unive rsity of pressure [place] [facility] Heart rate 2020-07-27 17:39:00 81 /min [facility] [place] [facility] Body temperature 2020-07-27 17:39:00 36 Meliza [facility] [place] [facility] Respiratory rate 2020-07-27 17:39:00 16 /min Univ ersity [facility] [place] [facility] Oxygen saturation in 2020-07-27 17:39:00 93 /min University of Arterial blood by [place] [employer] carol Pulse oximetry Branch Body weight 2020-07-27 08:53:00 222.535 kg [facility] [place] [facility] BMI 2020-07-27 08:53:00 66.54 kg/m2 [facility] [place] [facility] Body height 2020-07-26 06:00:00 182.9 cm [facility] [place] [facility] Systolic blood 2020-04-09 22:25:00 146 mm[Hg] Univer sity of pressure [place] [facility] Diastolic blood 2020-04-09 22:25:00 93 mm[Hg] Unive rsity of pressure [place] [facility] Heart rate 2020-04-09 22:25:00 84 /min [facility] [place] [facility] Respiratory rate 2020-04-09 22:25:00 17 /min Univ ersity [facility] [place] [facility] Oxygen saturation in 2020-04-09 22:25:00 97 /min [facility] of Arterial blood by [place] [employer] carol Pulse oximetry Branch Body temperature 2020-04-09 14:00:43 36.5 Meliza [facility] [place] [facility] Body weight 2020-04-07 11:43:00 226.345 kg [facility] [place] [facility] BMI 2020-04-07 11:43:00 67.68 kg/m2 [facility] [place] [facility] Systolic blood 2020-04-09 22:25:00 146 mm[Hg] Univer sity of pressure [place] [facility] Diastolic blood 2020-04-09 22:25:00 93 mm[Hg] Unive rsity of pressure [place] [facility] Heart rate 2020-04-09 22:25:00 84 /min [facility] [place] [facility] Respiratory rate 2020-04-09 22:25:00 17 /min Univ ersity [facility] [place] [facility] Oxygen saturation in 2020-04-09 22:25:00 97 /min [facility] of Arterial blood by [facility] Pulse oximetry Branch Body temperature 2020-04-09 14:00:43 36.5 Meliza [facility] [place] [facility] Body weight 2020-04-07 11:43:00 226.345 kg [facility] [place] [facility] BMI 2020-04-07 11:43:00 67.68 kg/m2 [facility] [place] [facility] Systolic blood 2019-12-26 08:00:00 170 mm[Hg] Univer sity of pressure [place] [facility] Diastolic blood 2019-12-26 08:00:00 102 mm[Hg] Unive rsity of pressure [place] [facility] Heart rate 2019-12-26 08:00:00 72 /min [facility] [place] [facility] Oxygen saturation in 2019-12-26 08:00:00 98 /min [facility] of Arterial blood by [place] [employer] carol Pulse oximetry Branch Respiratory rate 2019-12-26 06:00:00 15 /min Univ ersity [facility] [place] [facility] Body temperature 2019-12-26 05:58:00 36.56 Meliza [facility] [place] [facility] Body weight 2019-12-26 05:58:00 233.602 kg Universi ty of [facility] BMI 2019-12-26 05:58:00 69.85 kg/m2 [facility] [place] [facility] Systolic blood 2019-12-26 08:00:00 170 mm[Hg] Univer sity of pressure [place] [facility] Diastolic blood 2019-12-26 08:00:00 102 mm[Hg] Unive rsity of pressure [place] [facility] Heart rate 2019-12-26 08:00:00 72 /min Universi ty of [facility] Oxygen saturation in 2019-12-26 08:00:00 98 /min [facility] of Arterial blood by [facility] Pulse oximetry Branch Respiratory rate 2019-12-26 06:00:00 15 /min Univ ersity of [facility] Body temperature 2019-12-26 05:58:00 36.56 Meliza [facility] [place] [facility] Body weight 2019-12-26 05:58:00 233.602 kg [facility] [place] [facility] BMI 2019-12-26 05:58:00 69.85 kg/m2 [facility] [place] [facility] HEIGHT 2019-12-24 00:00:00 183 cm WEIGHT 2019-12-24 00:00:00 233.602 kg HEIGHT 2019-12-24 00:00:00 183 cm WEIGHT 2019-12-24 00:00:00 233.602 kg Systolic blood 2019-12-20 17:59:00 95 mm[Hg] Univer sity of pressure [facility] Diastolic blood 2019-12-20 17:59:00 46 mm[Hg] Unive rsity of pressure [facility] Heart rate 2019-12-20 17:59:00 72 /min [facility] [place] [facility] Body temperature 2019-12-20 17:59:00 36.39 Meliza Univ ersity of [facility] Respiratory rate 2019-12-20 17:59:00 18 /min Univ ersity of [facility] Oxygen saturation in 2019-12-20 17:59:00 97 /min [facility] of Arterial blood by [place] [employer] carol Pulse oximetry Branch Body weight 2019-12-19 09:35:00 227.479 kg [employer]scale Universi ty of [facility] BMI 2019-12-19 09:35:00 68.02 kg/m2 [facility] [place] [facility] Systolic blood 2019-10-23 20:18:00 120 mm[Hg] Univer sity of pressure [place] [facility] Diastolic blood 2019-10-23 20:18:00 60 mm[Hg] Unive rsity of pressure [place] [facility] Heart rate 2019-10-23 20:18:00 72 /min Universi ty of [facility] Body temperature 2019-10-23 20:18:00 36.39 Meliza [facility] [place] [facility] Respiratory rate 2019-10-23 20:18:00 18 /min Univ ersity [facility] [place] [facility] Oxygen saturation in 2019-10-23 20:18:00 94 /min University of Arterial blood by [employer] carol Pulse oximetry Branch Body height 2019-10-20 13:21:00 182.9 cm Universi ty of [facility] Body weight 2019-10-20 13:21:00 219.995 kg Universi ty of [facility] BMI 2019-10-20 13:21:00 65.78 kg/m2 [facility] [place] [facility] Systolic blood 2019-08-31 03:57:00 151 mm[Hg] Univer sity of pressure [facility] Diastolic blood 2019-08-31 03:57:00 105 mm[Hg] Unive rsity of pressure [facility] Heart rate 2019-08-31 03:57:00 82 /min [facility] [place] [facility] Respiratory rate 2019-08-31 03:57:00 18 /min Univ ersity of [facility] Oxygen saturation in 2019-08-31 03:57:00 96 /min [facility] of Arterial blood by [place] [employer] carol Pulse oximetry Branch Body temperature 2019-08-31 01:04:00 36.83 Meliza [facility] [place] [facility] Body weight 2019-08-31 01:04:00 220.448 kg [facility] [place] [facility] BMI 2019-08-31 01:04:00 65.91 kg/m2 Universi ty of [facility] Systolic blood 2019-08-16 16:13:00 127 mm[Hg] Univer sity of pressure [facility] Diastolic blood 2019-08-16 16:13:00 65 mm[Hg] Unive rsity of pressure [facility] Heart rate 2019-08-16 16:13:00 86 /min [facility] Body temperature 2019-08-16 16:13:00 36.22 Meliza [facility] Respiratory rate 2019-08-16 16:13:00 18 /min [facility] Oxygen saturation in 2019-08-16 09:09:00 95 /min [facility] blood by [facility] Pulse oximetry Branch Body weight 2019-08-16 05:15:[address] [facility] BMI 2019-08-16 05:15:00 65.99 kg/m2 [facility] Body height 2019-08-16 00:00:[address] [facility] BP Diastolic 2019-04-25 00:00:00 80 mm[Hg] [facility] Height 2019-04-25 00:00:00 72 [in_i[facility] BP Systolic 2019-04-25 00:00:00 130 mm[Hg] [facility] Respitory Rate 2018-08-26 01:25:00 [facility] [place] Systolic (mm Hg) 2018-08-26 01:25:00 Levy rial [place] Diastolic (mm Hg) 2018-08-26 01:25:00 Mem orial [place] Temperature Oral (F) 2018-08-26 01:25:00 98.3 F [facility] [place] Heart Rate 2018-08-26 01:25:00 [facility] Systolic (mm Hg) 2018-08-25 20:52:00 [facility] Diastolic (mm Hg) 2018-08-25 20:52:00 [facility] Respitory Rate 2018-08-25 20:52:00 [facility] [place] Heart Rate 2018-08-25 20:52:00 [facility] [place] Temperature Oral (F) 2018-08-25 20:52:00 98.3 F [facility] [place] Systolic (mm Hg) 2018-08-25 17:42:00 Levy rial [place] Diastolic (mm Hg) 2018-08-25 17:42:00 Mem [facility] [place] Respitory Rate 2018-08-25 17:42:00 [facility] [place] Heart Rate 2018-08-25 17:42:00 [facility] Temperature Oral (F) 2018-08-25 17:42:00 98.6 F [facility] BMI Calculated 2018-08-23 05:36:00 [facility] Height 2018-08-23 05:36:00 182.88 cm [facility] [place] Weight 2018-08-23 05:36:00 [facility] [place] Weight 2018-08-22 21:04:00 [facility] [place] BMI Calculated 2018-08-22 21:04:00 [facility] [place] Height 2018-08-22 21:04:00 182.88 cm [facility] Respitory Rate 2018-08-18 09:10:00 [facility] Systolic (mm Hg) 2018-08-18 09:10:00 Levy [facility] Diastolic (mm Hg) 2018-08-18 09:10:00 [facility] BMI Calculated 2018-08-18 04:11:00 [facility] [place] Weight 2018-08-18 04:11:00 [facility] Height 2018-08-18 04:11:00 182.88 cm [facility] Temperature Oral (F) 2018-08-18 04:11:00 98.6 F [facility] Systolic (mm Hg) 2018-08-18 04:11:00 [facility] Diastolic (mm Hg) 2018-08-18 04:11:00 [facility] [place] Respitory Rate 2018-08-18 04:11:00 [facility] [place] Heart Rate 2018-08-18 04:11:00 [facility] [place] Respitory Rate 2018-08-12 11:04:00 [facility] [place] Systolic (mm Hg) 2018-08-12 11:04:00 Levy [facility] Diastolic (mm Hg) 2018-08-12 11:04:00 [facility] Respitory Rate 2018-08-12 09:30:00 [facility] Systolic (mm Hg) 2018-08-12 09:30:00 Levy [facility] [place] Diastolic (mm Hg) 2018-08-12 09:30:00 Mem [facility] [place] Respitory Rate 2018-08-12 08:30:00 [facility] Systolic (mm Hg) 2018-08-12 08:30:00 Levy rial [place] Diastolic (mm Hg) 2018-08-12 08:30:00 [facility] Height 2018-08-12 05:35:00 175.26 cm [facility] [place] BMI Calculated 2018-08-12 05:35:00 [facility] [place] Weight 2018-08-12 05:35:00 [facility] Heart Rate 2018-08-12 05:35:00 [facility] [place] Temperature Oral (F) 2018-08-12 05:35:00 98.7 F [facility] [place] Temperature Oral (F) 2018-07-30 20:41:00 97.9 F [facility] Heart Rate 2018-07-30 20:41:00 [facility] Respitory Rate 2018-07-30 20:41:00 [facility] [place] Systolic (mm Hg) 2018-07-30 20:41:00 Levy [facility] Diastolic (mm Hg) 2018-07-30 20:41:00 [facility] Respitory Rate 2018-07-30 16:18:00 [facility] Heart Rate 2018-07-30 16:18:00 [facility] [place] Temperature Oral (F) 2018-07-30 16:18:00 97.9 F [facility] Systolic (mm Hg) 2018-07-30 16:18:00 [facility] Diastolic (mm Hg) 2018-07-30 16:18:00 Mem [facility] [place] Systolic (mm Hg) 2018-07-30 12:24:00 [facility] Diastolic (mm Hg) 2018-07-30 12:24:00 [facility] Respitory Rate 2018-07-30 12:24:00 [facility] [place] Heart Rate 2018-07-30 12:24:00 [facility] Temperature Oral (F) 2018-07-30 12:24:00 98.0 F [facility] [place] Weight 2018-07-30 10:59:00 [facility] BMI Calculated 2018-07-30 10:59:00 [facility] Height 2018-07-30 10:59:00 182.88 cm [facility] [place] BMI Calculated 2018-07-30 00:32:00 [facility] Weight 2018-07-30 00:32:00 [facility] Height 2018-07-30 00:32:00 182.88 cm [facility] Procedures Procedure Date / Time Performing Clinician Source Performed POCT GLUCOSE (AUTOMATED) 2022-07-28 21:19:00 Farooq Avilez [facility] TRANSTHORACIC ECHO (TTE) 2022-07-28 20:15:00 Ne Ash [facility] COMPLETE W/ CONTRAST [facility] POCT GLUCOSE (AUTOMATED) 2022-07-28 16:33:00 Farooq Avilez [facility] POCT GLUCOSE (AUTOMATED) 2022-07-28 12:53:00 Farooq Avilez [facility] TROPONIN I 2022-07-28 11:04:00 [facility] BASIC METABOLIC PANEL 2022-07-28 11:04:00 [facility] (NA, K, CL, CO2, GLUCOSE, Medica l Branch BUN, CREATININE, CA) CBC WITH DIFF 2022-07-28 11:04:00 [facility] GLYCOSYLATED HEMOGLOBIN 2022-07-28 11:04:00 Ne Ash [facility] (A1C) [facility] TROPONIN I 2022-07-28 05:56:[address] [facility] POCT GLUCOSE (AUTOMATED) 2022-07-28 03:04:00 Farooq Avilez [facility] CT CHEST PULMONARY 2022-07-27 23:29:00 Link German [facility] ANGIOGRAM Medical Branch HB ECG ROUTINE & RHYTHM 2022-07-27 23:10:54 Link German [facility] PROTHROMBIN TIME / INR 2022-07-27 23:10:00 Link German [facility] ACTIVATED PARTIAL 2022-07-27 23:10:00 Link German [facility] THRMPLAS JUANCHO [facility] LIPASE 2022-07-27 23:05:00 Link German [facility] MAGNESIUM 2022-07-27 23:05:00 Link German [facility] TROPONIN I 2022-07-27 23:05:00 Link German [facility] COMP. METABOLIC PANEL 2022-07-27 23:05:00 Link German [facility] ([id number]) [facility] [place] URINE DRUG (IMMUNOASSAY) 2022-07-27 23:05:00 Link German [facility] COMPREHENSIVE [facility] nc SCREEN CBC WITH DIFF 2022-07-27 23:05:00 Link German Hedy [facility] URINALYSIS 2022-07-27 23:05:00 Link German Hedy [place] [facility] N-TERMINAL PRO-BNP 2022-07-27 23:05:00 Link [facility] ASSIGNMENT OF BENEFITS 2022-07-27 22:14:49 Doctor Unassigned, No [facility] Name [facility] CONSENT/REFUSAL FOR 2022-07-27 21:48:21 Doctor Unassigned, No [facility] DIAGNOSIS AND TREATMENT [facility] EKG-12 LEAD 2022-03-27 02:48:28 Ciara Ramirez [facility] CT CHEST PULMONARY 2022-03-27 01:46:00 Ciara Ramirez [facility] ANGIOGRAM Medical [place] XR ABDOMEN ACUTE SERIES 2022-03-27 00:41:46 Ciara Ramirez [facility] POCT TEST 2022-03-27 00:14:00 Ciara Ramirez [facility] URINALYSIS 2022-03-27 00:12:00 Ciara Ramirez [facility] LIPASE 2022-03-26 23:42:00 Ciara Ramirez [facility] TROPONIN I 2022-03-26 23:42:00 Ciara Ramirez [facility] HEPATIC FUNCTION PANEL 2022-03-26 23:42:00 Ciara Ramirez [facility] ([id number]) (ALB,T.PRO,[facility] T,BU/BC,ALT,AST,ALK PHOS) BASIC METABOLIC PANEL 2022-03-26 23:42:00 Ciara Ramirez [facility] (NA, K, CL, CO2, GLUCOSE, Medica l Branch BUN, CREATININE, CA) CBC WITH DIFF 2022-03-26 23:42:00 Ciara Ramirez [facility] D-DIMER 2022-03-26 23:42:00 Ciara Ramirez [facility] RAPID STREP SCREEN FOR 2022-03-26 23:42:00 Ciara Ramirez [facility] GROUP A [facility] RAPID INFLUENZA A/B 2022-03-26 23:42:00 Ciara Ramirez [facility] N-TERMINAL PRO-BNP 2022-03-26 23:42:00 Ciara Ramirez [facility] COVID-19 (ID NOW RAPID 2022-03-26 23:42:00 Ciara Ramirez [facility] TESTING) [facility] CONSENT/REFUSAL FOR 2022-03-26 22:54:44 Doctor Unassigned, No Un [facility] DIAGNOSIS AND TREATMENT Name [facility] POCT GLUCOSE (AUTOMATED) 2021-10-05 16:57:00 Mitchell Jacobs [facility] POCT GLUCOSE (AUTOMATED) 2021-10-05 13:01:00 Mitchell Jacobs [facility] MAGNESIUM 2021-10-05 09:32:00 Mitchell Jacobs [place] [facility] BASIC METABOLIC PANEL 2021-10-05 09:32:00 [facility] ([facility], K, CL, CO2, GLUCOSE, Medica l Branch BUN, CREATININE, CA) CBC WITH DIFF 2021-10-05 09:32:00 [facility] POCT GLUCOSE (AUTOMATED) 2021-10-05 09:30:00 Mitchell Jacobs [facility] POCT GLUCOSE (AUTOMATED) 2021-10-05 05:28:00 Mitchell Jacobs [facility] POCT GLUCOSE (AUTOMATED) 2021-10-05 01:57:00 Mitchell Jacobs [facility] POCT GLUCOSE (AUTOMATED) 2021-10-04 22:01:00 Mitchell Jacobs [facility] POCT GLUCOSE (AUTOMATED) 2021-10-04 17:02:00 Marnie Grimm [facility] PHOSPHORUS 2021-10-04 14:59:00 Mitchell Jacobs [facility] MAGNESIUM 2021-10-04 14:59:00 [facility] BASIC METABOLIC PANEL 2021-10-04 14:59:00 Mitchell Jacobs [facility] (NA, K, CL, CO2, GLUCOSE, Medica l Branch BUN, CREATININE, CA) POCT GLUCOSE (AUTOMATED) 2021-10-04 12:45:00 [facility] ([facility]) 2021-10-04 08:46:00 [facility] PO[facility] GLUCOSE (AUTOMATED) 2021-10-04 04:47:00 Marnie Grimm [facility] POCT GLUCOSE (AUTOMATED) 2021-10-04 01:54:00 [facility] PO[facility] GLUCOSE (AUTOMATED) 2021-10-04 00:35:00 Marnie Grimm [facility] US PELVIS COMPLETE WITH 2021-10-03 23:29:00 Marnie Grimm [facility] TRANSVAGINAL [facility] POCT GLUCOSE (AUTOMATED) 2021-10-03 21:55:00 Marnie Grimm [facility] TROPONIN I 2021-10-03 20:52:00 Sirisha dariel [facility] BASIC METABOLIC PANEL 2021-10-03 20:52:00 Mitchell Jacobs [facility] (NA, K, CL, CO2, GLUCOSE, Medica l Branch BUN, CREATININE, CA) TRANSTHORACIC ECHO (TTE) 2021-10-03 17:30:00 Marnie Grimm [facility] COMPLETE W/ CONTRAST [facility] POCT GLUCOSE (AUTOMATED) 2021-10-03 16:54:00 Marnie Grimm [facility] POCT GLUCOSE (AUTOMATED) 2021-10-03 12:43:00 [facility] GLUCOSE (AUTOMATED) 2021-10-03 10:23:00 Marnie Grimm versity [facility] PHOSPHORUS 2021-10-03 09:38:00 Marnie Grimm [facility] CREATINE KINASE 2021-10-03 09:38:00 Sirisha [facility] URIC ACID 2021-10-03 09:38:00 Sirisha dariel [facility] MAGNESIUM 2021-10-03 09:38:00 Sirisha [facility] OSMOLALITY, SERUM OR 2021-10-03 09:38:00 Marnie Grimm [facility] PLASMA [facility] TROPONIN I 2021-10-03 09:38:00 Sirisha dariel [facility] COMP. METABOLIC PANEL 2021-10-03 09:38:00 Marnie Grimm [facility] ([id number]) [facility] CBC WITH DIFF 2021-10-03 09:38:00 Sirisha dariel [facility] N-TERMINAL PRO-BNP 2021-10-03 09:38:00 Marnie [facility] AC VBG + LACTIC ACID 2021-10-03 09:38:00 Marnie Grimm [facility] POCT GLUCOSE (AUTOMATED) 2021-10-03 06:54:00 Marnie Grimm [facility] POCT GLUCOSE (AUTOMATED) 2021-10-03 03:09:00 Marnie Grimm [facility] URINALYSIS 2021-10-03 03:06:00 Marnie Grimm [facility] URINE CULTURE 2021-10-03 03:06:00 Marnie Grimm [facility] UREA NITROGEN, URINE 2021-10-03 03:06:00 Marnie Grimm [facility] SODIUM, URINE RANDOM 2021-10-03 03:06:00 Sirisha dariel [facility] PROTEIN CREAT RATIO URINE 2021-10-03 03:06:00 Marnie Grimm [facility] AC PANEL 21 + LACTIC ACID 2021-10-03 02:28:00 Marnie Grimm [facility] SEDIMENTATION RATE 2021-10-03 02:26:00 Sirisha [facility] PHOSPHORUS 2021-10-03 02:24:00 Sirisha [facility] URIC ACID 2021-10-03 02:24:00 Sirisha [facility] MAGNESIUM 2021-10-03 02:24:00 Sirisha [facility] FERRITIN SERUM 2021-10-03 02:24:00 Sirisha [facility] OSMOLALITY, SERUM OR 2021-10-03 02:24:00 Sirisha dariel [facility] PLASMA [facility] VITAMIN B12, LEVEL 2021-10-03 02:24:[address] [facility] TROPONIN I 2021-10-03 02:24:00 Sirisha [facility] THYROID STIMULATING 2021-10-03 02:24:00 Sirisha dariel [facility] HORMONE [facility] LIPID PANEL ([id number])(TOTAL 2021-10-03 02:24:00 Marnie Grimm [facility] CHOLESTEROL, [facility] TRIGLYCERIDES, HDL) IRON PANEL 2021-10-03 02:24:00 Sirisha [facility] VITAMIN D, 25-OH 2021-10-03 02:24:00 Sirisha [facility] PROCALCITONIN 2021-10-03 02:24:00 Sirisha [facility] LOW-DENSITY LIPOPROTEIN, 2021-10-03 02:24:00 Marnie Grimm [facility] DIRECT [facility] CT ABDOMEN PELVIS W 2021-10-03 00:06:34 Miladys [facility] CONTRAST [facility] CT CHEST PULMONARY 2021-10-03 00:06:[address] [facility] ANGIOGRAM [facility] POCT GLUCOSE (AUTOMATED) 2021-10-03 00:04:00 Cabrera Hook [facility] AC PANEL 20 + LACTIC ACID 2021-10-02 22:30:00 Lan Hook [facility] COVID-19 (ID NOW RAPID 2021-10-02 22:21:00 Cabrera Hook [facility] TESTING) Medical Branch LAB ONLY COVID 2021-10-02 22:21:00 Miladys [facility] INTERPRETATION [facility] XR CHEST 1 VW 2021-10-02 21:17:00 [facility] 2021-10-02 21:11:00 Miladys [facility] TROPONIN I 2021-10-02 21:11:00 Miladys [facility] COMP. METABOLIC PANEL 2021-10-02 21:11:00 Cabrera Hook [facility] ([id number]) Medical Branch DIFF CONSULT 2021-10-02 21:11:00 Marnie Grimm [facility] CBC WITH DIFF 2021-10-02 21:11:00 Miladys [facility] GLYCOSYLATED HEMOGLOBIN 2021-10-02 21:11:00 Marnie Grimm [facility] (A1C) [facility] PROTHROMBIN TIME / INR 2021-10-02 21:11:00 Cabrera Hook [facility] N-TERMINAL PRO-BNP 2021-10-02 21:11:00 [facility]ys [facility] ROUTINE & RHYTHM 2021-10-02 21:06:11 Miladys [facility] STRIP [facility] CONSENT/REFUSAL FOR 2021-10-02 20:41:03 Doctor Unassigned, No [facility] DIAGNOSIS AND TREATMENT Name Medical Branch CT CHEST PULMONARY 2021-04-13 08:48:00 Link German [facility] ANGIOGRAM Medical Branch URINALYSIS 2021-04-13 05:39:00 Link German [facility] COVID-19 (ID NOW RAPID 2021-04-13 05:22:[address] [facility] TESTING) Medical Branch MAGNESIUM 2021-04-13 05:20:00 Link German [facility] TROPONIN I 2021-04-13 05:20:00 Link German Hedy [place] o f [facility] COMP. METABOLIC PANEL 2021-04-13 05:20:00 Link German [facility] ([id number]) [facility] CBC WITH DIFF 2021-04-13 05:20:00 Link German [facility] D-DIMER 2021-04-13 05:20:00 Link German Hedy [place] o [facility] N-TERMINAL PRO-BNP 2021-04-13 05:20:00 Link [facility] XR CHEST 1 VW 2021-04-13 05:15:07 Monserrat [facility] o [facility] URINALYSIS 2021-03-04 00:25:00 Rsoa Rice [facility] POCT TEST 2021-03-04 00:25:00 Rosa Rice [facility] URINE DRUG (IMMUNOASSAY) 2021-03-04 00:25:00 [facility] SCREEN W/O REFLEX CT CHEST PULMONARY 2021-03-03 23:45:43 Rosa Rice [facility] ANGIOGRAM [facility] CT HEAD WO CONTRAST 2021-03-03 23:44:50 Rosa Rice [facility] MAGNESIUM 2021-03-03 23:08:00 Rosa Rice [facility] TROPONIN I 2021-03-03 23:08:00 Rosa Rice [facility] THYROID STIMULATING 2021-03-03 23:08:00 Rosa Rice [facility] HORMONE [facility] COMP. METABOLIC PANEL 2021-03-03 23:08:[address] [facility] ([id number]) [facility] CBC WITH DIFF 2021-03-03 23:08:00 Rosa Rice [facility] PROTHROMBIN TIME / INR 2021-03-03 23:08:00 Rosa Rice [facility] ACTIVATED PARTIAL 2021-03-03 23:08:00 Rosa [facility] THRFormerly [facility] N-TERMINAL PRO-BNP 2021-03-03 23:08:00 Rosa Rice [facility] Medical Branch COVID-19 (ID NOW RAPID 2021-03-03 23:08:00 Rosa Rice [facility] TESTING) Medical Branch NOTICE OF PRIVACY 2021-03-03 22:40:31 Doctor Unassigned, No [facility] PRACTICES Name Medical Branch CONSENT/REFUSAL FOR 2021-03-03 22:32:30 Doctor Unassigned, No [facility] DIAGNOSIS AND TREATMENT Name Medical Branch TROPONIN I 2020-12-31 05:46:00 Lisa [facility] COVID-19 (ID NOW RAPID 2020-12-31 05:15:00 Lisa Schulte [facility] TESTING) Medical Branch XR CHEST 1 VW 2020-12-31 03:53:02 Lisa [facility] MAGNESIUM 2020-12-31 03:33:00 Lisa [facility] TROPONIN I 2020-12-31 03:33:00 Lisa [facility] COMP. METABOLIC PANEL 2020-12-31 03:33:00 Lisa Schulte [facility] ([id number]) [facility] CBC WITH DIFF 2020-12-31 03:33:00 Lisa [facility] N-TERMINAL PRO-BNP 2020-12-31 03:33:00 Lisa Schulte [facility] TROPONIN I 2020-10-15 02:43:00 Singer John [facility] CT CHEST PULMONARY 2020-10-15 01:27:08 Singer John [facility] ANGIOGRAM Medical Branch LIPASE 2020-10-15 00:32:00 Singer [facility] TROPONIN I 2020-10-15 00:32:00 Singer [facility] COMP. METABOLIC PANEL 2020-10-15 00:32:00 John James [facility] ([id number]) [facility] CBC WITH DIFF 2020-10-15 00:32:00 Singer [facility] N-TERMINAL PRO-BNP 2020-10-15 00:32:00 Singer [facility] POCT GLUCOSE (AUTOMATED) 2020-07-27 21:38:00 Olivia Fiore Pinky [facility] POCT GLUCOSE (AUTOMATED) 2020-07-27 18:55:00 Olivia Fiore [facility] POCT GLUCOSE (AUTOMATED) 2020-07-27 14:51:00 Olivia Fiore Pinky [facility] MAGNESIUM 2020-07-27 09:01:00 Nancy [facility] BASIC METABOLIC PANEL 2020-07-27 09:01:00 Ketty [facility] (NA, K, CL, CO2, GLUCOSE, Medica l Branch BUN, CREATININE, CA) CBC WITH DIFF 2020-07-27 09:01:00 Ketty [facility] POCT GLUCOSE (AUTOMATED) 2020-07-27 02:26:00 Olivia Fiore [facility] POCT GLUCOSE (AUTOMATED) 2020-07-26 22:33:00 Olivia Fiore [facility] POCT GLUCOSE (AUTOMATED) 2020-07-26 17:13:00 Olivia Fiore [facility] POCT GLUCOSE (AUTOMATED) 2020-07-26 12:51:00 Olivia Fiore [facility] MAGNESIUM 2020-07-26 08:03:00 Alex Herbert [facility] TROPONIN I 2020-07-26 08:03:00 Ketty [facility] LIPID PANEL ([id number])(TOTAL 2020-07-26 08:03:00 Jonane Hdez [facility] TRIGLYCERIDES, HDL) PROTHROMBIN TIME / INR 2020-07-26 06:12:00 Ketty Joanne [facility] D-DIMER 2020-07-26 06:12:00 Ketty [facility] GLYCOSYLATED HEMOGLOBIN 2020-07-26 06:12:00 Hdez [facility] (A1C) Medical Branch URINALYSIS 2020-07-26 04:24:00 Antonio Adair [facility] URINE DRUG (IMMUNOASSAY) 2020-07-26 04:24:00 Antonio Adair [facility] - 4 ER PANEL Medical Branch COVID-19 (ID NOW RAPID 2020-07-26 02:47:[address] [facility] TESTING) [facility] XR CHEST 2 VW 2020-07-26 01:54:07 Antonio Adair [facility] POCT TEST 2020-07-26 01:15:00 Ludin Medrano [facility] N-TERMINAL PRO-BNP 2020-07-26 01:02:00 Ludin Medrano [facility] LIPASE 2020-07-26 01:02:00 Antonio Adair [facility] TROPONIN I 2020-07-26 01:02:[address] [facility] THYROID STIMULATING 2020-07-26 01:02:00 Ketty [facility] HORMONE [facility] COMP. METABOLIC PANEL 2020-07-26 01:02:00 Ludin Medrano [facility] ([id number]) [facility] CBC WITH DIFF 2020-07-26 01:02:[address] [facility] POCT GLUCOSE (AUTOMATED) 2020-04-09 18:00:00 Viral Olivares [facility] CREATINE KINASE 2020-04-07 11:03:00 Manuela Neely [facility] COVID-19 (ID NOW RAPID 2020-04-06 03:04:[address] [facility] TESTING) Medical Branch POCT TEST 2020-04-06 02:16:[address] [facility] HB ECG ROUTINE & RHYTHM 2020-04-06 01:35:56 Ne Rubin [facility] STRIP [facility] LIPASE 2020-04-06 01:34:00 Ne Rubin [facility] TROPONIN I 2020-04-06 01:34:00 Ne Rubin [facility] COMP. METABOLIC PANEL 2020-04-06 01:34:00 Ne Rubin [facility] ([id number]) Medical Branch ETHANOL 2020-04-06 01:34:00 Ne Rubin [facility] EXTRA TUBE LT. GREEN 2020-04-06 01:34:00 Ne Rubin [facility] SALICYLATE 2020-04-06 01:31:00 Ne Rubin [facility] CBC WITH DIFF 2020-04-06 01:31:00 Caryn [facility] URINALYSIS 2020-04-06 01:31:00 Caryn [facility] ADC / LCC - DRUG SCREEN 2020-04-06 01:31:00 Ne Rubin [facility] XR CHEST 1 VW 2020-04-06 01:01:08 Ne Rubin [facility] LIPASE 2019-12-26 06:48:00 Rosa Rice [facility] TROPONIN I 2019-12-26 06:48:00 Rosa Rice [facility] HEPATIC FUNCTION PANEL 2019-12-26 06:48:00 Rosa Rice [facility] ([id number]) (ALB,T.PRO,BILI Medical Branch T,BU/BC,ALT,AST,ALK PHOS) BASIC METABOLIC PANEL 2019-12-26 06:48:[address] [facility] (NA, K, CL, CO2, GLUCOSE, Medica l Branch BUN, CREATININE, CA) CBC WITH DIFF 2019-12-26 06:48:00 Rosa Rice [facility] ADC / LCC - DRUG SCREEN 2019-12-26 06:48:00 Rosa Rice [facility] POCT GLUCOSE (AUTOMATED) 2019-12-20 16:51:00 José Miguel Ramsay [facility] POCT GLUCOSE (AUTOMATED) 2019-12-20 13:50:00 José Miguel Ramsay [facility] CBC WITH DIFF 2019-12-20 09:26:00 Dave Walker o f [facility] MAGNESIUM 2019-12-20 09:25:00 Ramandeep Martinez [facility] BASIC METABOLIC PANEL 2019-12-20 09:25:00 Dave Walker [facility] (NA, K, CL, CO2, GLUCOSE, Medica l Branch BUN, CREATININE, CA) POCT GLUCOSE (AUTOMATED) 2019-12-20 01:58:00 José Miguel Ramsay [facility] POCT GLUCOSE (AUTOMATED) 2019-12-19 22:04:00 José Miguel Ramsay [facility] POCT GLUCOSE (AUTOMATED) 2019-12-19 16:59:00 José Miguel Ramsay [facility] EKG-12 LEAD 2019-12-19 14:50:05 José Miguel Ramsay [facility] POCT GLUCOSE (AUTOMATED) 2019-12-19 13:25:00 José Miguel Ramsay [facility] MAGNESIUM 2019-12-19 08:55:00 Ramandeep Martinez [facility] BASIC METABOLIC PANEL 2019-12-19 08:55:00 Dave Walker [facility] (NA, K, CL, CO2, GLUCOSE, Medica l Branch BUN, CREATININE, CA) EXTRA TUBE LAV 2019-12-19 08:55:00 José Miguel Ramsay [facility] POCT GLUCOSE (AUTOMATED) 2019-12-19 01:46:00 José Miguel Ramsay [facility] CT CHEST PULMONARY 2019-12-18 18:26:20 Ramandeep Martinez [facility] ANGIOGRAM [facility] BILATERAL VENOUS DUPLEX 2019-12-18 18:23:42 Martin Martinez i [facility] LOWER EXTREMITY BY Medical [facility] VASCULAR LAB POCT GLUCOSE (AUTOMATED) 2019-12-18 17:31:00 José Miguel Ramsay [facility] POCT GLUCOSE (AUTOMATED) 2019-12-18 13:10:00 José Miguel Ramsay [facility] BASIC METABOLIC PANEL 2019-12-18 10:21:00 Dave Walker [facility] (NA, K, CL, CO2, GLUCOSE, Medica l Branch BUN, CREATININE, CA) CBC WITH DIFF 2019-12-18 05:29:00 Denise [facility] TROPONIN I 2019-12-18 05:28:00 Denise [facility] D-DIMER 2019-12-17 22:51:00 Akil [facility] XR CHEST 1 VW 2019-12-17 21:18:12 Akil [facility] ADC / LCC - DRUG SCREEN 2019-12-17 21:12:00 Akil [facility] TRIAGE [facility] URINALYSIS 2019-12-17 20:47:00 Akil [facility] COVID-19 (ID NOW RAPID 2019-12-17 20:47:[address] [facility] TESTING) [facility] EKG-12 LEAD 2019-12-17 20:45:10 Akil [facility] TEST, SERUM 2019-12-17 20:43:00 Akil [facility] PROTHROMBIN TIME / INR 2019-12-17 20:43:00 Kevin Barnard [facility] ACTIVATED PARTIAL 2019-12-17 20:43:00 Akil [facility] THRMPLAS JUANCHO [facility] MAGNESIUM 2019-12-17 20:42:00 Akil [facility] TROPONIN I 2019-12-17 20:42:00 Akil [facility] COMP. METABOLIC PANEL 2019-12-17 20:42:00 Akil [facility] ([id number]) Medical Branch CBC WITH DIFF 2019-12-17 20:42:00 Akil [facility] GLYCOSYLATED HEMOGLOBIN 2019-12-17 20:42:00 Denise [facility] (A1C) [facility] N-TERMINAL PRO-BNP 2019-12-17 20:42:00 [facility] 2019-12-17 20:37:37 Akil [facility] EKG-12 LEAD 2019-12-17 20:37:24 Kevin Barnard [facility] EKG-12 LEAD 2019-12-17 20:28:02 Kevin Barnard [facility] EMERGENCY DEPARTMENT 2019-12-17 05:01:00 Doctor Unassigned, No [facility] DOCUMENTS Name Medical Branch AGREEMENTS AUTHORIZATIONS 2019-12-17 05:01:00 Doctor Unassigned, No [facility] AND IRREVOCABLE [facility] ASSIGNMENTS (FORM 2001) EXTERNAL PROVIDER RECORDS 2019-11-09 05:01:00 Doctor Unassigned, No [facility] POCT GLUCOSE (AUTOMATED) 2019-10-23 16:44:00 Fernandez Campbell [facility] POCT GLUCOSE (AUTOMATED) 2019-10-23 13:06:00 Fernandez Campbell [facility] BASIC METABOLIC PANEL 2019-10-23 09:38:00 [facility] (NA, K, CL, CO2, GLUCOSE, Medica l Branch BUN, CREATININE, CA) CBC WITH DIFF 2019-10-23 09:38:00 Jose [facility] PROTHROMBIN TIME / INR 2019-10-23 09:38:00 [facility] ACTIVATED PARTIAL 2019-10-23 09:38:00 Jose [facility] THRFormerly [facility] POCT GLUCOSE (AUTOMATED) 2019-10-23 01:48:00 Fernandez Campbell [facility] POCT GLUCOSE (AUTOMATED) 2019-10-22 22:00:00 Fernandez Campbell [facility] CT ABDOMEN PELVIS W 2019-10-22 20:49:52 Danny Luu [facility] CONTRAST [facility] BASIC METABOLIC PANEL 2019-10-22 16:42:00 [facility] (NA, K, CL, CO2, GLUCOSE, Medica l Branch BUN, CREATININE, CA) CBC WITH DIFF 2019-10-22 16:42:00 Jose [facility] PROTHROMBIN TIME / INR 2019-10-22 16:42:00 Jose [facility] ACTIVATED PARTIAL 2019-10-22 16:42:00 Jose [facility] POCT GLUCOSE (AUTOMATED) 2019-10-22 16:37:00 Fernandez Campbell [facility] POCT GLUCOSE (AUTOMATED) 2019-10-22 13:26:00 Fernandez Campbell [facility] POCT GLUCOSE (AUTOMATED) 2019-10-22 01:15:00 Fernandez Campbell [facility] TROPONIN I 2019-10-22 00:36:00 [facility] POCT GLUCOSE (AUTOMATED) 2019-10-21 22:32:00 Fernandez Campbell [facility] POCT GLUCOSE (AUTOMATED) 2019-10-21 18:20:00 Fernandez Campbell [facility] TROPONIN I 2019-10-21 17:11:00 [facility] POCT GLUCOSE (AUTOMATED) 2019-10-21 14:47:00 Fernandez Campbell [facility] MAGNESIUM 2019-10-21 09:45:00 Britni [facility] BASIC METABOLIC PANEL 2019-10-21 09:45:00 [facility] (NA, K, CL, CO2, GLUCOSE, Medica l Branch BUN, CREATININE, CA) CBC WITH DIFF 2019-10-21 09:45:00 Jose [facility] PROTHROMBIN TIME / INR 2019-10-21 09:45:00 [facility] ACTIVATED PARTIAL 2019-10-21 09:45:00 Jose [facility] POCT GLUCOSE (AUTOMATED) 2019-10-21 01:45:00 Fernandez Campbell [facility] POCT GLUCOSE (AUTOMATED) 2019-10-20 22:35:00 Fernandez Campbell [facility] CT THORAX W WO CONTRAST 2019-10-20 21:01:37 Jose Concetta [facility] POCT GLUCOSE (AUTOMATED) 2019-10-20 19:49:00 Fernandez Campbell [facility] ECHO ROUTINE W/DOPPLER 2019-10-20 15:19:23 Jose [facility] COLOR [facility] PHOSPHORUS 2019-10-20 13:54:00 Jose [facility] TROPONIN I 2019-10-20 13:54:00 Jose [facility] BASIC METABOLIC PANEL 2019-10-20 13:54:00 [facility] (NA, K, CL, CO2, GLUCOSE, Medica l Branch BUN, CREATININE, CA) CBC WITH DIFF 2019-10-20 13:54:00 Jose [facility] PROTHROMBIN TIME / INR 2019-10-20 13:54:00 Jose [facility] ACTIVATED PARTIAL 2019-10-20 13:54:00 Jose [facility] COVID-19 (ID NOW RAPID 2019-10-20 13:43:00 [facility] [place] TESTING) [facility] URINALYSIS 2019-08-31 01:26:00 Rosa Rice [facility] POCT GLUCOSE (AUTOMATED) 2019-08-16 14:07:00 [facility] E[facility]-12 LEAD 2019-08-16 12:37:55 Jeff Ervin [facility] MAGNESIUM 2019-08-16 09:36:00 Danial Alex Carlisle o [facility] BASIC METABOLIC PANEL 2019-08-16 09:36:00 Alex Barrow [facility] (NA, K, CL, CO2, GLUCOSE, Medica l Branch BUN, CREATININE, CA) CBC WITH DIFFERENTIAL 2019-08-16 09:36:00 Alex Barrow [facility] ACTIVATED PARTIAL 2019-08-16 03:29:00 Susi Malcolm [facility] POCT GLUCOSE (AUTOMATED) 2019-08-16 01:38:00 Jeff [facility] ECHO ROUTINE W/DOPPLER 2019-08-15 19:40:11 Alex [facility]arrow [facility] POCT GLUCOSE (AUTOMATED) 2019-08-15 16:39:00 [facility] ([facility]OMATED) 2019-08-15 12:21:00 [facility] PHOSPHORUS 2019-08-15 09:38:00 Alex Barrow [facility] MAGNESIUM 2019-08-15 09:38:00 [facility] THYROID STIMULATING 2019-08-15 09:38:00 Alex Barrow [facility] HORMONE [facility] BASIC METABOLIC PANEL 2019-08-15 09:38:00 Alex Barrow [facility] (NA, K, CL, CO2, GLUCOSE, Medica l Branch BUN, CREATININE, CA) LIPID PANEL ([id number])(TOTAL 2019-08-15 09:38:00 Alex Barrow [facility] CHOLESTEROL, [facility] TRIGLYCERIDES, HDL) CBC WITH DIFFERENTIAL 2019-08-15 09:38:00 Alex Barrow [facility] GLYCOSYLATED HEMOGLOBIN 2019-08-15 09:38:00 Alex Barrow [facility] (A1C) [facility] ACTIVATED PARTIAL 2019-08-15 09:38:00 Alex Barrow [facility] JU[facility] POCT GLUCOSE (AUTOMATED) 2019-08-15 03:26:00 Jeff [facility]vin [facility] TROPONIN I 2019-08-15 03:24:00 Alex Barrow [facility] PROTHROMBIN TIME / INR 2019-08-15 03:24:00 Alex Barrow [facility] POCT GLUCOSE (AUTOMATED) 2019-08-14 23:19:00 Link [facility] TROPONIN I 2019-08-14 21:56:00 Link German [facility] CT CHEST PULMONARY 2019-08-14 19:16:58 Link German [facility] ANGIOGRAM Medical Branch POCT TEST 2019-08-14 17:50:[address] [facility] URINALYSIS 2019-08-14 17:45:00 Link German [facility] ADC / LCC - DRUG SCREEN 2019-08-14 17:45:00 Link [facility] TRIAGE Medical Branch CBC WITH DIFFERENTIAL 2019-08-14 17:35:00 Link German [facility] COVID-19 (ID NOW RAPID 2019-08-14 17:34:[address] [facility] TESTING) Medical Branch XR CHEST 1 VW 2019-08-14 17:24:25 Link German [facility] XR CERVICAL SPINE 3 VW 2019-08-14 17:24:25 Link German [facility] LIPASE 2019-08-14 17:10:00 Link German [facility] MAGNESIUM 2019-08-14 17:10:00 Link German [facility] TROPONIN I 2019-08-14 17:10:00 Link [facility] COMP. METABOLIC PANEL 2019-08-14 17:10:00 Link German [facility] ([id number]) Medical Branch D-DIMER 2019-08-14 17:10:00 Link German [facility] N-TERMINAL PRO-BNP 2019-08-14 17:10:00 Link [facility] EKG-12 LEAD 2019-08-14 16:26:12 [facility] EKG-12 LEAD 2019-08-14 16:24:03 Lisa [facility] EMERGENCY DEPARTMENT 2019-08-14 05:01:00 Doctor Unassigned, No [facility] [place] DOCUMENTS [facility] HOSPITAL ADMISSION 2019-08-14 05:01:00 Doctor Unassigned, No Uni versity of [facility] Appendectomy [facility] section [facility] n ESWL - Extracorporeal [facility] shock wave lithotripsy of bile duct calculus Laparoscopic adjustable [facility] gastric banding<sup>1</sup> Partial resection of [facility] colon Anesth Tubal Ligation [facility] Appendectomy [facility] l Group Plan of Care Planned Activity Planned Date Details Comments Source Future Scheduled 2022-11-[address] [facility] Test 00:00:00 (Season Ended) [code = [facility] Influenza Vaccine (Season Ended)] Future Scheduled 2022-03-[address] [facility] Test 00:00:00 (12+) [code = Medical Center DEPRESSION SCREENING (12+)] Future Scheduled 2020-11-20 INFLUENZA VACCINE (#1) [facility]00 [code = INFLUENZA Medical nter VACCINE (#1)] Future Scheduled 2020-03-[address] [facility] Test 00:00:00 (12+) [code = Medical Center DEPRESSION SCREENING (12+)] Future Scheduled 2001-02-[address] [facility] 00:[facility]00 [facility] cervix (procedure) [code = 138216410] Future Scheduled 2001-02-[address] [facility] 00:00:00 malignant [facility] cervix (procedure) [code = 280672531] Future Scheduled [address] [facility] 00:[facility]:00 (procedure) [code = [facility] 66030670] Future Scheduled [address] [facility] Test 00:00:00 (procedure) [code = [facility] [id number]] Future Scheduled 1999-02-23 DTAP/TDAP/TD VACCINES [facility] 00:[facility]:00 (1 - Tdap) [code = Medical C enter DTAP/TDAP/TD VACCINES (1 - Tdap)] Future Scheduled 1999-02-23 DTAP/TDAP/TD VACCINES [facility] 00:00:00 (1 - Tdap) [code = Medical C enter DTAP/TDAP/TD VACCINES (1 - Tdap)] Future Scheduled 1998-02-23 HEPATITIS C [facility]CREENING [facility] 00:00:00 [code = HEPATITIS C Medical Center SCREENING] Future Scheduled 1998-02-23 HEPATITIS C [facility]CRE[facility]ING [facility] 00:00:00 [code = HEPATITIS C Medical Center SCREENING] Future Scheduled [address] [facility] Test 00:00:00 Counseling and Medical Cente r Screening (12+) [code = Tobacco Cessation Counseling and Screening (12+)] Future Scheduled 1992 COVID-19 VACCINE (1) [facility] Test 00:00:00 [code = COVID-[address] VACCINE (1)] Future Scheduled 1986-02-23 Pneumococcal Vaccine: [facility] 00:00:00 0-64 Years (1 - PCV) Medical Center [code = Pneumococcal Vaccine: 0-64 Years (1 - PCV)] Future Scheduled 1986-02-[address] [facility] Test 00:00:00 0-64 YRS (1 of 2 - Medical C enter PPSV23) [code = PNEUMOCOCCAL VACCINE 0-64 YRS (1 of 2 - PPSV23)] Future Scheduled 1980 COVID-19 VACCINE (#1) [facility] 00:00:00 [code = COVID-[address] VACCINE (#1)] Encounters Start End Encounter Admission Attending Care Care Encounter Source Date/Time Date/Time Type Type Clinicians Facility Department ID 2022-02-06 Inpatient [facility] [id number] [facility] 13:35:[address] [place] [address] 2021-01-21 Emergency [facility] [id number] Univers 05:57:19 ity [facility] 2021-01-20 Emergency [facility] [id number] Univers 10:57:06 ity [facility] 2021-01-19 Emergency [facility] [id number] Univers 17:39:33 ity of [facility] 2021-01-17 Emergency [facility] [id number] Univers 21:13:06 ity [facility] 2021-01-17 Emergency [facility] [id number] Univers 19:38:23 ity [facility] 2021-01-17 Emergency [facility] [id number] Univers 17:29:43 ity [facility] 2021-01-17 In[id number] Univers 09:57:56 FERNANDEZ ity of [facility] 2021-01-17 Emergency [facility] [id number] Univers 00:29:03 ity of [facility] 2022-07-29 2022-07-29 Transition ELOINA Arriaga [id number] Univers 00:00:00 00:00:00 of Care Chelsie PALOMINO [id number] [place] [phone] [facility] 403 Branch 2022-07-27 2022-07-28 [facility] [id number] Univers 16:53:00 18:17:00 FAROOQ ity [facility] 2022-07-27 2022-07-28 Emergency Link German [facility] 1.2.840. [id number] Univers 16:53:00 18:17:00 Farooq Avilez [id number] ity of Dae Mcginnis 4.2.7.2.686 [facility] [id number] [facility] 081 Branch 2022-03-26 2022-03-26 Emergency [facility] ERT [id number] Univers 17:02:00 22:18:00 CIARA ity [facility] 2022-03-26 2022-03-26 Emergency [facility] [id number] Univers 17:02:00 22:18:00 Ciara HERNANDEZ [id number] i ty of Mihir [place] 4.2.7.2.686 [facility] [id number] [facility] 084 Branch 2021-10-20 2021-10-20 Outpatient MAYTE_IRASEMA VILLAR [facility] 803 [place] 00:00:00 00:00:00 SSA 0801 da [facility] Outre h Program 2021-10-07 2021-10-07 Transition ELOINA Arriaga [id number] Univers 00:00:00 00:00:00 of Care Chelsie PALOMINO [id number] [place] [id number] [facility] 403 Branch 2021-10-02 2021-10-05 Outpatient X ARLENE [facility] ALISHA [id number] Univers 16:00:00 15:22:00 [facility] 2021-10-02 2021-10-05 [facility] [place] [facility] [id number] [id number] Univers 16:00:00 15:22:00 Encounter Marnie Grimm [id number] ity [address] [facility] 4.2.7.2.686 [facility] [phone] [facility] 081 Branch 2021-04-12 2021-04-13 Emergency X Link GERMAN [facility] ERT [id number] Univers 22:49:00 04:26:00 ity [facility] 2021-04-12 2021-04-13 Emergency Link German [facility] [id number] Univers 22:49:00 04:26:00 Hedy HERNANDEZ 350.1.13.10 i ty of [place] 4.2.7.2.686 [facility] [phone] [place] 283544 Branch 2021-03-03 2021-03-03 Emergency X KRYSTAL, [facility] ERT [id number] Univers 16:49:00 20:02:00 ROSA finnpaul [facility] 2021-03-03 2021-03-03 Emergency [facility] [id number] Univers 16:49:00 20:02:00 Rosa HERNANDEZ [id number] ity of [place] 4.2.7.2.686 [facility] [id number] [place] [address] Branch 2020-12-30 2020-12-31 Emergency Tomi, [facility] 1.2.840.114 [id number] Univers 22:16:00 02:30:00 Lisa Hernandez [id number] ity of [place] 4.2.7.2.686 [facility] [id number] [place] 283544 Branch 2020-10-14 2020-10-15 Emergency [facility] [id number] Univers 19:09:00 00:05:00 John Hernandez 350.1.13.10 i ty of [place] 4.2.7.2.686 [facility] [id number] [facility] 084 Branch 2020-07-25 2020-07-27 Emergency Antonio Adair 1.2.840.1 [id number] Univers 18:59:00 19:35:00 Jeff Ervin 350.1. 13.10 ity of [facility] 4.2.7.[address] [place] [address] [phone] [facility] 090 Branch 2020-06-02 2020-06-02 Inpatient EM Farhad, HCAMN HC[facility]N [id number] [facility] 14:15:40 14:15:40 Rosa 42 [facility] 2020-04-05 2020-04-09 Emergency X AUFDERHEIDE [facility] ERT [id number] Univers 18:06:00 17:15:00 , MANUELA itpaul of [facility] 2020-04-05 2020-04-09 Emergency Ne Rubin S [facility] 1.2.840.1 [id number] Univers 18:06:00 17:15:00 Viral Olivares 350.1.13.10 ity of Manuela [place] 4.2.7.2. [address] [place] [address] [id number] [place] 283544 Branch 2020-04-05 2020-04-09 Emergency Ne Rubin S [facility] 1.2.840.1 [id number] 18:06:00 17:15:00 Viral Olivares 350.1.13.10 GómezmaykelfaribaManuela [place] 4.2.7.2. [address] [place] [address] [id number] [id number] 2020-02-02 2020-02-02 Patient Tabby Atkins 1.2.840.114 [id number] Univers 00:00:00 00:00:00 Outreach E Duncan 350.1.13.10 i ty of [id number] [address] 2020-02-02 2020-02-02 Patient Tabby Atkins 1.2.840.114 [id number] 00:00:00 00:00:00 Outreach E [place] 350.1.13.10 [place] 4.2.7.2.686 [id number] [facility] 2020-01-29 2020-01-29 Patient Tabby Atkins 1.2.840.114 [id number] [facility] 00:00:00 00:00:00 Outreach E [place] 350.1.13.10 i ty [place] [id number] [address] 2020-01-29 2020-01-29 Patient Tabby Atkins 1.2.840.114 [id number] 00:00:00 00:00:00 Outreach E [place] 350.1.13.10 [place] 4.2.7.2.686 [id number] [facility] 2020-01-22 2020-01-22 Patient Tabby Atkins 1.2.840.114 [id number] [facility] 00:00:00 00:00:00 Outreach E [place] 350.1.13.10 i ty [place] [id number] [address] 2020-01-22 2020-01-22 Patient Tabby Atkins 1.2.840.114 [id number] 00:00:00 00:00:00 Outreach E [place] 350.1.13.10 [place] 4.2.7.2.686 [id number] [facility] 2020-01-15 2020-01-15 Patient Tabby Atkins 1.2.840.114 [id number] [facility] 09:59:05 10:19:05 Outreach E [place] 350.1.13.10 i ty [id number] [address] 2020-01-15 2020-01-15 Patient Tabby Atkins 1.2.840.114 [id number] 09:59:05 10:19:05 Outreach E [place] 350.1.13.10 [place] 4.2.7.2.686 [id number] [facility] 2020-01-10 2020-01-10 Patient Eloina Rutledge 1.2.840.114 [id number] Univers 00:00:00 00:00:00 Outreach Jessica E [place] 350.1.13.10 i ty [place] [id number] [address] 2020-01-10 2020-01-10 Patient Eloina Rutledge 1.2.840.114 [id number] 00:00:00 00:00:00 Outreach Jessica E [place] 350.1.13.10 [place] 4.2.7.2.686 [id number] [facility] 2020-01-01 2020-01-01 Patient Eloina Rutledge 1.2.840.114 [id number] Univers 00:00:00 00:00:00 Outreach Jessica E [place] 350.1.13.10 i ty [place] [id number] [address] 2020-01-01 2020-01-01 Patient Eloina Rutledge 1.2.840.114 [id number] 00:00:00 00:00:00 Outreach Jessica E [place] 350.1.13.10 [place] 4.2.7.2.686 [id number] [facility] 2019-12-29 2019-12-29 Patient Tabby Atkins 1.2.840.114 [id number] [facility] 00:00:00 00:00:00 Outreach E [place] 350.1.13.10 i ty [place] [id number] [address] 2019-12-29 2019-12-29 Patient Tabby Atkins 1.2.840.114 [id number] 00:00:00 00:00:00 Outreach E [place] 350.1.13.10 [place] 4.2.7.2.686 [id number] [facility] 2019-12-26 2019-12-26 Emergency [facility] [id number] Univers 00:52:00 03:07:00 Rosa Hernandez 350.1.13.10 [place] [id number] [address] 2019-12-26 2019-12-26 Emergency [facility] [id number] 00:52:00 03:07:00 Rosa Hernandez 350.1.13.10 [place] 4.2.7.2.686 [place] [id number] [facility] 2019-12-24 2019-12-24 Emergency ER [facility] Emergency [id number] [facility] 22:57:00 22:57:00 2019-12-22 2019-12-22 Patient Tabby Atkins 1.2.840.114 [id number] [facility] 00:00:00 00:00:00 Outreach E [place] 350.1.13.10 i ty [place] [id number] [address] 2019-12-22 2019-12-22 Patient Tabby Atkins 1.2.840.114 [id number] 00:00:00 00:00:00 Outreach E [place] 350.1.13.10 [place] 4.2.7.2.686 [id number] [facility] 2019-12-21 2019-12-21 Transition Eloina Torres 1.2.840.114 [id number] [facility] 00:00:00 00:00:00 of Care Marilyn Palomino 350.1.13.10 ity [id number] [address] 2019-12-21 2019-12-21 Transition Eloina Torres 1.2.840.114 [id number] 00:00:00 00:00:00 of Care Marilyn Palomino 350.1.13.10 [place] 4.2.7.2.686 [id number] [facility] 2019-12-17 2019-12-20 [facility] Kevin Barnard 1.2.840.1 [id number] [facility] 15:26:00 18:19:00 Encounter José Miguel Ramsay 350.1.13.1 0 ity [facility] [place] 4.2.7.2.686 [place] [id number] [facility] [address] 2019-12-20 2019-12-20 Transition Eloina Torres 1.2.840.114 [id number] [facility] 00:00:00 00:00:00 of Care Marilyn Palomino 350.1.13.10 it[place] [id number] [address] 2019-12-20 2019-12-20 Patient Tabby Atkins 1.2.840.114 [id number] [facility] 00:00:00 00:00:00 Outreach E Palomino 350.1.13.10 i ty [place] [id number] [address] 2019-11-09 2019-11-09 Orders Doctor DIEGO 1.2.840.114 [id number] [facility] 00:00:00 00:00:00 Only Unassigned, DENISE 350.1.13.10 ity of [facility] 4.2.7.2.686 Jorge as [phone] [address] 2019-10-24 2019-10-24 Transition Eloina Torres 1.2.840.114 [id number] [facility] 00:00:00 00:00:00 of Care Marilyn Palomino 350.1.13.10 it[place] [id number] [address] 2019-10-24 2019-10-24 Telephone Janak Blanco 1.2.840.114 [id number] [facility] 00:00:00 00:00:00 DENISE 350.1.13.10 it y of HOSPITAL 4.2.7.2.686 Jorge as [phone] [facility] 009 [place] 2019-10-20 2019-10-23 [facility] Fernandez Campbell 1.2. 840.114 [id number] Univers 07:26:00 19:15:00 Encounter [facility] Denise 350.1.13. 10 ity of Hospital 4.2.7.2.686 Jorge as [id number] [place] [id number] [place] 2019-08-30 2019-08-30 [facility] 1.2.870.532 [id number] Univers 19:56:16 22:58:00 Rosa Hernandez 350.1.13.10 ity [facility] [place].2.[place] [phone] [address] 2019-08-14 2019-08-16 Outpatient X DANNYSHAHANAJamel [facility] [id number] Univers 11:21:43 19:15:00 AHMED ity [facility] 2019-08-14 2019-08-16 Emergency Link German 1.2.840. 114 [id number] Univers 11:21:43 19:15:00 Jeff Ervin 350.1. 13.10 [facility] 4.2.7.2.686 Jorge [phone] [address] 2019-06-27 2019-06-27 [facility] [id number] Univers 11:20:00 11:20:00 KWABENA kush o f [facility] 2019-06-27 2019-06-27 Telemedici [facility] 1.2.840.114 [id number] Univers 08:21:31 08:36:31 ne Visit Kwabena [place] [facility].1.13.10 [facility] 4.2.7.2.686 [facility] [phone] La dical [facility] 059 [facility] 2019-04-30 2019-04-30 Outpatient Ambeaux MMG MMG [id number] [place] 12:23:00 12:23:00 0[facility] 2019-04-25 2019-04-25 Aleksandar [place] MM[place] - [phone] [place] 00:00:00 00:00:00 Discovery Akil 0204 jewell VELASCO: [address] [place] [address] Group [facility] - [address], [place] [address] , Ph. 2019-01-13 2019-01-13 Outpatient Ambeaux MMG MMG [id number] 019 [place] 10:25:00 10:25:00 1025 Medical Group 2018-08-22 2018-08-26 [facility] 5529 [id number] Memoria 21:01:14 03:07:00 n tammy Yañez 02 l [facility] 2018-08-22 2018-08-26 [facility] 5529 [id number] Memoria 21:01:14 03:07:00 n tammy Yañez 02 l [facility] 2018-08-22 2018-08-25 Outpatient Aguedatiffaniejerica [facility] [id number] 16:01:14 22:07:00 Cherie 02 2018-08-22 2018-08-22 Outpatient E [facility] MED 7502 [facility]NE 22:10:00 22:10:00 2018-08-18 2018-08-18 Emergency [facility] [id number] Memoria 03:46:47 09:39:00 tammy Yañez 01 l [facility] 2018-08-18 2018-08-18 Emergency [facility] [id number] Memoria 03:46:47 09:39:00 r Otilio 01 l [facility] 2018-08-17 2018-08-18 Outpatient Nick [facility] [id number] 675 22:46:47 04:39:00 Liping 2018-08-17 2018-08-17 Emergency E MHNE MHNE 7501 MHNE 22:46:00 22:46:00 2018-08-12 2018-08-12 [facility] [id number] Memoria 05:29:03 11:21:00 tammy Yañez 00 l [facility] 2018-08-12 2018-08-12 Emergency [facility] [id number] Memoria 05:29:03 11:21:00 r Otilio 00 l [facility] 2018-08-12 2018-08-12 Outpatient Nick [facility] [id number] 675 00:29:03 06:21:00 Liping 2018-08-12 2018-08-12 Emergency E MHNE MHNE 7500 MHNE 00:29:00 00:29:00 2018-07-30 2018-07-30 [facility]atio [facility] 4668 [id number] Memoria 00:27:04 21:24:00 n tammy Yañez The 00 [facility] 2018-07-30 2018[id number] [id number] Memoria 00:27:04 21:24:00 adriana Yañez [facility] 2018-07-29 2018-07-30 Outpatient FANY Saaverda [facility] [id number] 19:27:04 16:24:00 Beck 2018-07-29 2018-07-29 Outpatient E [facility] MED 7500 TW 23:06:00 23:06:00 Results Test Description Test Time Test Comments Results Result Comments Source POCT GLUCOSE (AUTOMATED) 2022-07-28 21:20:11 Test Item Value Reference Range Interpretation Comme nts POCT GLU (test code = 2443278001) 138 mg/dL 70-110 H Lab Interpretation (test code = 11783-1) Abnormal [facility] GLUCOSE (AUTOMATED)2022-07-28 16:34:30 Test Item Value Reference Range Interpretation Comments POCT GLU (test code = 0274546589) 140 mg/dL 70-110 H Lab Interpretation (test code = Abnormal 12132-3) [facility]2022-07-28 14:41:42 Test Item Value Reference Range Interpretation Comments HGB A1C (test code = 8.3 % 4.0-5.7 H 4548-4) LAKESHIA (test code = LAKESHIA) Reference RangesNormal: <5.7%Prediabetes: 5.7 - 6.4%Diabetes: > 6.5% Lab Interpretation (test Abnormal code = 76697-1) [facility] GLUCOSE (AUTOMATED)2022-07-28 12:54:22 Test Item Value Reference Range Interpretation Comments POCT GLU (test code = 5662185875) 150 mg/dL 70-110 H Lab Interpretation (test code = Abnormal 09217-2) [facility] (NA, K, CL, CO2, GLUCOSE, BUN, CREATININE, CA)2022-07-28 12:15:48 Test Item Value Reference Range Interpretation Comments NA (test code = 136 mmol/L 135-145 8486220241) K (test code = 3.7 mmol/L 3.5-5.0 8939363776) CL (test code = 102 mmol/L 98-108 3535669718) CO2 TOTAL (test code = 27 mmol/L 23-31 0131354019) AGAP (test code = 7 2-16 2085554673) BUN (test code = 19 mg/dL 7-23 2741362703) GLUCOSE (test code = 128 mg/dL 70-110 H 1559241383) CREATININE (test code = 0.75 mg/dL 0.50-1.04 7520605510) CALCIUM (test code = 8.6 mg/dL 8.6-10.6 9420146609) eGFR (test code = 84.7 mL/min/1.73m2 8758109302) LAKESHIA (test code = LAKESHIA) Association of Glomerular Filtration Rate (GFR) and Staging of Kidney Disease* + --+ --+ ------+| GFR (mL/min/1.73 m2) ?| With Kidney Damage ?| ?Without Kidney Damage+ --------+ --------+ +| ?>90 ?| ?Stage one ?| ? Normal ?+ ---+ ---+ -------+| ?60-89 ?| ?Stage two ?| ? Decreased GFR ? + --+ --+ ------+| ?30-59 ?| ?Stage three ?| ? Stage three ? + --+ --+ ------+| ?15-29 ?| ?Stage four ? | ? Stage four ?+ ---+ ---+ -------+| ?<15 (or dialysis) ? ?| ?Stage five ? | ? Stage five ?+ ---+ ---+ -------+ *Each stage assumes the associated GFR level has been in effect for at least three months. ?Stages 1 to 5, with or without kidney disease, indicate chronic kidney disease. Notes: Determination of stages one and two (with eGFR >59mL/min/1.73 m2) requires estimation of kidney damage for at least three months as defined by structural or functional abnormalities of the kidney, manifested by either:Pathological abnormalities or Markers of kidney damage (including abnormalities in the composition of the blood or urine or abnormalities in imaging tests). Lab Interpretation Abnormal (test code = 51689-6) [facility] Center[facility] [id number] 12:08:14 Test Item Value Reference Range Interpretation Comments TROPONIN I (test code = 0.001 ng/mL <=0.034 8858080653) LAKESHIA (test code = LAKESHIA) Reference (Normal) Range (defined by the 99th percentile reference limit): <= 0.034 ng/mL Note: Cardiac troponin begins to rise 3-4 hours after the onset of ischemia. Repeat in 4-6 hours if the sample was drawn within 3-4 hours of the onset of the symptom and found normal. Diagnosis of myocardial injury is made with acute changes in cTn concentrations with at least one serial sample above the 99th percentile upper reference limit (URL), taken together with the patient's clinical presentation. Biotin has been reported to cause a negative bias, interpret results relative to patient's use of biotin. Lab Interpretation Normal (test code = 55015-5) [facility] with [id number] 11:28:34 Test Item Value Reference Range Interpretation Comments WBC (test code = 7.64 See_Comment [Automated 6052-2) message] The sy stem which generated this result transmitted reference range : 4.30 - 11.10 10*3/?L. The reference range was not used to interpret this result as normal/abnormal . RBC (test code = 5.05 See_Comment [Automated 546-8) message] The sy stem which generated this result transmitted reference range : 3.93 - 5.25 10*6/?L. The reference range was not used to interpret this result as normal/abnormal . HGB (test code = 13.7 g/dL 11.6-15.0 718-7) HCT (test code = 42.8 % 35.7-45.2 4544-3) MCV (test code = 84.8 fL 80.6-95.5 787-2) MCH (test code = 27.1 pg 25.9-32.8 785-6) MCHC (test code = 32.0 g/dL 31.6-35.1 786-4) RDW-SD (test code = 43.1 fL 39.0-49.9 80104-2) RDW-CV (test code = 14.0 % 12.0-15.5 788-0) PLT (test code = 261 See_Comment [Automated 777-3) message] The sy stem which generated this result transmitted reference range : 166 - 358 10*3/ ?L. The reference r alee was not used to interpret this result as normal/abnormal . MPV (test code = 9.6 fL 9.5-12.9 74273-9) NRBC/100 WBC (test 0.0 See_Comment [Automat ed code = 6834428382) message] The system which generated this result transmitted reference range : 0.0 - 10.0 /100 WBCs. The refer ence range was not u sed to interpret th is result as normal/abnormal . NRBC x10^3 (test code See_Comment [Auto mated = 2421962883) message] The s ystem which generated this result transmitted reference range : 10*3/?L. The reference range was not used to interpret this result as normal/abnormal . GRAN MAT (NEUT) % 44.6 % (test code = 770-8) IMM GRAN % (test code 0.30 % = 5763260051) LYMPH % (test code = 44.9 % 736-9) MONO % (test code = 6.4 % 5905-5) EOS % (test code = 3.1 % 713-8) BASO % (test code = 0.7 % 706-2) GRAN MAT x10^3(ANC) 3.41 10*3/uL 1.88-7.09 (test code = 1963634241) IMM GRAN x10^3 (test 0.00-0.06 code = 8802456278) LYMPH x10^3 (test code 3.43 10*3/uL 1.32-3.29 H = 731-0) MONO x10^3 (test code 0.49 10*3/uL 0.33-0.92 = 742-7) EOS x10^3 (test code = 0.24 10*3/uL 0.03-0.39 711-2) BASO x10^3 (test code 0.05 10*3/uL 0.01-0.07 = 704-7) Lab Interpretation Abnormal (test code = 90297-6) [facility] [id number] 07:08:04 Test Item Value Reference Range Interpretation Comments TROPONIN I (test code = 0.001 ng/mL <=0.034 2449961459) LAKESHIA (test code = LAKESHIA) Reference (Normal) Range (defined by the 99th percentile reference limit): <= 0.034 ng/mL Note: Cardiac troponin begins to rise 3-4 hours after the onset of ischemia. Repeat in 4-6 hours if the sample was drawn within 3-4 hours of the onset of the symptom and found normal. Diagnosis of myocardial injury is made with acute changes in cTn concentrations with at least one serial sample above the 99th percentile upper reference limit (URL), taken together with the patient's clinical presentation. Biotin has been reported to cause a negative bias, interpret results relative to patient's use of biotin. Lab Interpretation Normal (test code = 31726-5) [facility]2022-07-28 03:05:17 Test Item Value Reference Range Interpretation Comments POCT GLU (test code = 2912249879) 121 mg/dL 70-110 H Lab Interpretation (test code = Abnormal 16830-8) [facility] CenterTROPONIN [id number] 23:50:40 Test Item Value Reference Range Interpretation Comments TROPONIN I (test code = 0.000 ng/mL <=0.034 9503369740) LAKESHIA (test code = LAKESHIA) Reference (Normal) Range (defined by the 99th percentile reference limit): <= 0.034 ng/mL Note: Cardiac troponin begins to rise 3-4 hours after the onset of ischemia. Repeat in 4-6 hours if the sample was drawn within 3-4 hours of the onset of the symptom and found normal. Diagnosis of myocardial injury is made with acute changes in cTn concentrations with at least one serial sample above the 99th percentile upper reference limit (URL), taken together with the patient's clinical presentation. Biotin has been reported to cause a negative bias, interpret results relative to patient's use of biotin. Lab Interpretation Normal (test code = 19562-2) [facility] CenterN-TERMINAL [id number] 23:47:38 Test Item Value Reference Range Interpretation Comments NT-proBNP (test code = 1340 pg/mL <=125 H 2580501682) LAKESHIA (test code = LAKESHIA) Biotin has been reported to cause a negative bias, interpret results relative to patient's use of biotin. Lab Interpretation (test Abnormal code = 92632-4) [facility] CenterMAGNESIUM2023-05-08 23:40:37 Test Item Value Reference Range Interpretation Comments MAGNESIUM (test code = 1238314146) 1.8 mg/dL 1.7-2.4 Lab Interpretation (test code = Normal 59803-5) [facility] CenterCOMP. METABOLIC PANEL (79452)2022-07-27 23:40:16 Test Item Value Reference Range Interpretation Comments NA (test code = 137 mmol/L 135-145 9639928837) K (test code = 4.5 mmol/L 3.5-5.0 3542265051) CL (test code = 101 mmol/L 98-108 1999089687) CO2 TOTAL (test code = 26 mmol/L 23-31 7540447944) AGAP (test code = 10 2-16 0944917805) BUN (test code = 17 mg/dL 7-23 0697367392) GLUCOSE (test code = 131 mg/dL 70-110 H 3504827083) CREATININE (test code = 0.72 mg/dL 0.50-1.04 4297991702) TOTAL BILI (test code = 0.6 mg/dL 0.1-1.3 5587623150) CALCIUM (test code = 9.5 mg/dL 8.6-10.6 4474710927) T PROTEIN (test code = 7.5 g/dL 6.3-8.2 6730159942) ALBUMIN (test code = 4.1 g/dL 3.5-5.0 8432485473) ALK PHOS (test code = 93 U/L 34-122 5328640496) ALTv (test code = 30 U/L 5-35 1742-6) AST(SGOT) (test code = 26 U/L 13-40 5183667730) eGFR (test code = 88.8 mL/min/1.73m2 3243860780) LAKESHIA (test code = LAKESHIA) Association of Glomerular Filtration Rate (GFR) and Staging of Kidney Disease* + --+ --+ ------+| GFR (mL/min/1.73 m2) ?| With Kidney Damage ?| ?Without Kidney Damage+ --------+ --------+ +| ?>90 ?| ?Stage one ?| ? Normal ?+ ---+ ---+ -------+| ?60-89 ?| ?Stage two ?| ? Decreased GFR ? + --+ --+ ------+| ?30-59 ?| ?Stage three ?| ? Stage three ? + --+ --+ ------+| ?15-29 ?| ?Stage four ? | ? Stage four ?+ ---+ ---+ -------+| ?<15 (or dialysis) ? ?| ?Stage five ? | ? Stage five ?+ ---+ ---+ -------+ *Each stage assumes the associated GFR level has been in effect for at least three months. ?Stages 1 to 5, with or without kidney disease, indicate chronic kidney disease. Notes: Determination of stages one and two (with eGFR >59mL/min/1.73 m2) requires estimation of kidney damage for at least three months as defined by structural or functional abnormalities of the kidney, manifested by either:Pathological abnormalities or Markers of kidney damage (including abnormalities in the composition of the blood or urine or abnormalities in imaging tests). Lab Interpretation Abnormal (test code = 64621-2) [facility] CenterLIPASE2023-05-08 23:39:56 Test Item Value Reference Range Interpretation Comments LIPASE (test code = 4487411012) 156 U/L 0-220 Lab Interpretation (test code = Normal 69319-8) [facility] CenterACTIVATED PARTIAL THRMPLAS [id number] 23:35:20 Test Item Value Reference Range Interpretation Comments APTT Patient (test 24 See_Comment [Automat ed code = 3173-2) message] The system which generated this result transmitted reference range : 23 - 38 Seconds . The reference range was not used to interpr et this result as normal/abnormal . LAKESHIA (test code = LAKESHIA) The [facility] patient population mean normal value for aPTT is 30 seconds. Lab Interpretation Normal (test code = 16437-1) [facility] CenterProthrombin Time / [id number] 23:33:18 Test Item Value Reference Range Interpretation Comments PROTIME PATIENT (test 13.1 See_Comment [Auto mated message] code = 5964-2) The system wh ich generated this result transmitted ref erence range: 12.0 - 1 4.7 Seconds. The re ference range was not u sed to interpret this result as normal/abnor mal. INR (test code = 6301-6) 1.0 Nor mal INR <1.1; Warfarin Therap eutic range 2.0 to 3. 0 or 2.5 to 3.5, dep ending upon the indica tions. Lab Interpretation (test Normal code = 65164-9) [facility] WITH [id number] 23:26:17 Test Item Value Reference Range Interpretation Comments WBC (test code = 8.05 See_Comment [Automated 7090-2) message] The sy stem which generated this result transmitted reference range : 4.30 - 11.10 10*3/?L. The reference range was not used to interpret this result as normal/abnormal . RBC (test code = 5.65 See_Comment H [Automated 789-8) message] The sy stem which generated this result transmitted reference range : 3.93 - 5.25 10*6/?L. The reference range was not used to interpret this result as normal/abnormal . HGB (test code = 15.4 g/dL 11.6-15.0 H 718-7) HCT (test code = 47.5 % 35.7-45.2 H 4544-3) MCV (test code = 84.1 fL 80.6-95.5 787-2) MCH (test code = 27.3 pg 25.9-32.8 785-6) MCHC (test code = 32.4 g/dL 31.6-35.1 786-4) RDW-SD (test code = 42.5 fL 39.0-49.9 32831-7) RDW-CV (test code = 13.9 % 12.0-15.5 788-0) PLT (test code = 306 See_Comment [Automated 777-3) message] The sy stem which generated this result transmitted reference range : 166 - 358 10*3/ ?L. The reference r alee was not used to interpret this result as normal/abnormal . MPV (test code = 9.7 fL 9.5-12.9 16143-5) NRBC/100 WBC (test 0.0 See_Comment [Automat ed code = 3967899978) message] The system which generated this result transmitted reference range : 0.0 - 10.0 /100 WBCs. The refer ence range was not u sed to interpret th is result as normal/abnormal . NRBC x10^3 (test code See_Comment [Auto mated = 4833305661) message] The s ystem which generated this result transmitted reference range : 10*3/?L. The reference range was not used to interpret this result as normal/abnormal . GRAN MAT (NEUT) % 57.8 % (test code = 770-8) IMM GRAN % (test code 0.10 % = 5298429203) LYMPH % (test code = 33.0 % 736-9) MONO % (test code = 5.7 % 5905-5) EOS % (test code = 2.7 % 713-8) BASO % (test code = 0.7 % 706-2) GRAN MAT x10^3(ANC) 4.64 10*3/uL 1.88-7.09 (test code = 2361848390) IMM GRAN x10^3 (test 0.00-0.06 code = 7799373338) LYMPH x10^3 (test code 2.66 10*3/uL 1.32-3.29 = 731-0) MONO x10^3 (test code 0.46 10*3/uL 0.33-0.92 = 742-7) EOS x10^3 (test code = 0.22 10*3/uL 0.03-0.39 711-2) BASO x10^3 (test code 0.06 10*3/uL 0.01-0.07 = 704-7) Lab Interpretation Abnormal (test code = 11469-9) [facility] CenterD-[id number] 00:46:32 Test Item Value Reference Interpretation Comments Range D-DIMER (test code = See_Comment H [Autom ated 7126426124) message] The system which generated this result transmitted reference range : <0.41 ?g/mL (FEU). The reference range was not used to interpret this result as normal/abnormal . LAKESHIA (test code = This test may be LAKESHIA) used in conjunction with a clinical pretest probability (PTP) assessment model to exclude venous thromboembolism (VTE) in patients suspected of deep venous thrombosis (DVT) and pulmonary embolism (PE) A D-Dimer value less than 0.50 ?g/ml (FEU) has a negative predicative value of [...] the clinical context, in forming a diagnosis. Lab Interpretation Abnormal (test code = 17009-6) [facility] CenterTroponin [id number] 00:45:10 Test Item Value Reference Interpretation Comments Range TROPONIN I (test 0.002 ng/mL See_Comment [Automated code = 9095524330) message] The system which generated this result transmitted reference range : <=0.034. The reference range was not used to interpret this result as normal/abnormal . LAKESHIA (test code = Reference (Normal) LAKESHIA) Range (defined by the 99th percentile reference limit): <= 0.034 ng/mL Note: Cardiac troponin begins to rise 3-4 hours after the onset of ischemia. Repeat in 4-6 hours if the sample was drawn within 3-4 hours of the onset of the symptom and found normal. Diagnosis of myocardial injury is made with acute changes in cTn concentrations with at least one serial sample above the 99th percentile upper reference limit (URL), taken together with the patient's clinical presentation. Biotin has been reported to cause a negative bias, interpret results relative to patient's use of biotin. Lab Interpretation Normal (test code = 07714-9) [facility] CenterN-TERMINAL [id number] 00:41:51 Test Item Value Reference Range Interpretation Comments NT-proBNP (test code 86 pg/mL See_Comment [Autom ated = 6354065036) message] The system which generated this result transmitted reference range : <=125. The reference range was not used to interpret this result as normal/abnormal . LAKESHIA (test code = LAKESHIA) Biotin has been reported to cause a negative bias, interpret results relative to patient's use of biotin. Lab Interpretation Normal (test code = 11958-6) [facility] (NA, K, CL, CO2, GLUCOSE, BUN, CREATININE, CA)2022-03-27 00:36:51 Test Item Value Reference Range Interpretation Comments NA (test code = 137 mmol/L 135-145 0774367969) K (test code = 4.2 mmol/L 3.5-5.0 1352510147) CL (test code = 103 mmol/L 98-108 4550661504) CO2 TOTAL (test code = 24 mmol/L 23-31 3401811105) AGAP (test code = 2-16 6912923582) BUN (test code = 9 mg/dL 7-23 0151245055) GLUCOSE (test code = 187 mg/dL 70-110 H 0993925905) CREATININE (test code = 0.50 mg/dL 0.50-1.04 9613122215) CALCIUM (test code = 8.4 mg/dL 8.6-10.6 L 0071561169) eGFR (test code = mL/min/1.73m2 9708245787) LAKESHIA (test code = LAKESHIA) Association of Glomerular Filtration Rate (GFR) and Staging of Kidney Disease* + --+ --+ ------+| GFR (mL/min/1.73 m2) ?| With Kidney Damage ?| ?Without Kidney Damage+ --------+ --------+ +| ?>90 ?| ?Stage one ?| ? Normal ?+ ---+ ---+ -------+| ?60-89 ?| ?Stage two ?| ? Decreased GFR ? + --+ --+ ------+| ?30-59 ?| ?Stage three ?| ? Stage three ? + --+ --+ ------+| ?15-29 ?| ?Stage four ? | ? Stage four ?+ ---+ ---+ -------+| ?<15 (or dialysis) ? ?| ?Stage five ? | ? Stage five ?+ ---+ ---+ -------+ *Each stage assumes the associated GFR level has been in effect for at least three months. ?Stages 1 to 5, with or without kidney disease, indicate chronic kidney disease. Notes: Determination of stages one and two (with eGFR >59mL/min/1.73 m2) requires estimation of kidney damage for at least three months as defined by structural or functional abnormalities of the kidney, manifested by either:Pathological abnormalities or Markers of kidney damage (including abnormalities in the composition of the blood or urine or abnormalities in imaging tests). Lab Interpretation Abnormal (test code = 38206-8) [facility] Center[facility] Function Panel (ALB, T.PRO, BILI T, BU/BC, ALT, AST, ALK PHOS)2022-03-27 00:36:51 Test Item Value Reference Range Interpretation Comments TOTAL BILI (test code = 8537836437) 0.6 mg/dL 0.1-1.1 BILI UNCON (test code = 6878184036) 0.4 mg/dL 0.1-1.1 BILI CONJ (test code = 0944864834) 0.0 mg/dL 0.0-0.3 T PROTEIN (test code = 6808861180) 7.0 g/dL 6.3-8.2 ALBUMIN (test code = 8317083627) 3.8 g/dL 3.5-5.0 ALK PHOS (test code = 5167198312) 139 U/L 34-122 H ALTv (test code = 1742-6) 29 U/L 5-35 AST(SGOT) (test code = 1048526561) 32 U/L 13-40 Lab Interpretation (test code = Abnormal 10448-8) [facility] [id number] 00:36:51 Test Item Value Reference Range Interpretation Comments LIPASE (test code = 6621060110) 143 U/L 0-220 Lab Interpretation (test code = Normal 62556-4) [facility] CenterCBC with Dtlgqjqnlxax0631-16-12 00:17:06 Test Item Value Reference Range Interpretation Comments WBC (test code = See_Comment [Automated message] 6690-2) The system [employer] generated this result transmitted ref erence range: 4.30 - 1 1.10 10*3/?L. The re ference range was not u sed to interpret this result as normal/abnor mal. RBC (test code = See_Comment [Automated message] 789-8) The system [employer] generated this result transmitted ref erence range: 3.93 - 5 .25 10*6/?L. The re ference range was not u sed to interpret this result as normal/abnor mal. HGB (test code = 13.7 g/dL 11.6-15.0 718-7) HCT (test code = 40.9 % 35.7-45.2 4544-3) MCV (test code = 85.6 fL 80.6-95.5 787-2) MCH (test code = 28.7 pg 25.9-32.8 785-6) MCHC (test code = 33.5 g/dL 31.6-35.1 786-4) RDW-SD (test code 39.8 fL 39.0-49.9 = 30064-4) RDW-CV (test code 12.9 % 12.0-15.5 = 788-0) PLT (test code = See_Comment [Automated message] 777-3) The system whic h generated this result transmitted ref erence range: 166 - 35 8 10*3/?L. The re ference range was not u sed to interpret this result as normal/abnor mal. MPV (test code = 10.1 fL 9.5-12.9 29873-9) NRBC/100 WBC (test See_Comment [Automat ed message] code = 4186460215) The syste m which generated this result transmitted ref erence range: 0.0 - 10 .0 /100 WBCs. The refer ence range was not u sed to interpret this result as normal/abnor mal. NRBC x10^3 (test See_Comment [Automated message] code = 9307071973) The syste m which generated this result transmitted ref erence range: 10*3/?L. The reference range was not used to interpr et this result as normal/abnormal . GRAN MAT (NEUT) % 61.7 % (test code = 770-8) IMM GRAN % (test 0.30 % code = 9774746689) LYMPH % (test code 28.5 % = 736-9) MONO % (test code 5.7 % = 5905-5) EOS % (test code = 3.2 % 713-8) BASO % (test code 0.6 % = 706-2) GRAN MAT 3.80 10*3/uL 1.88-7.09 x10^3(ANC) (test code = 9758244522) IMM GRAN x10^3 0.00-0.06 (test code = 7369923129) LYMPH x10^3 (test 1.76 10*3/uL 1.32-3.29 code = 731-0) MONO x10^3 (test 0.35 10*3/uL 0.33-0.92 code = 742-7) EOS x10^3 (test 0.20 10*3/uL 0.03-0.39 code = 711-2) BASO x10^3 (test 0.04 10*3/uL 0.01-0.07 code = 704-7) [facility] [id number] 00:14:00 Test Item Value Reference Range Interpretation Comments POCT PREG (test code = 1605) negative On board controls acceptable with present C Line (test code = 3574) POCT PREG LOT # (test code = 3575) [id number] POCT PREG TEST DATE (test 06/20/2023 code = 3576) Lab Interpretation (test code = Normal 10718-6) [facility] GLUCOSE (AUTOMATED)2021-10-05 17:06:39 Test Item Value Reference Range Interpretation Comments POCT GLU (test code = 0014860571) 243 mg/dL 70-110 H Lab Interpretation (test code = Abnormal 03690-7) [facility] GLUCOSE (AUTOMATED)2021-10-05 13:23:18 Test Item Value Reference Range Interpretation Comments POCT GLU (test code = 7270190081) 231 mg/dL 70-110 H Lab Interpretation (test code = Abnormal 49321-9) [facility] GLUCOSE (AUTOMATED)2021-10-05 13:23:18 Test Item Value Reference Range Interpretation Comments POCT GLU (test code = 1790520070) 237 mg/dL 70-110 H Lab Interpretation (test code = Abnormal 99236-9) [facility] GLUCOSE (AUTOMATED)2021-10-05 09:26:35 Test Item Value Reference Range Interpretation Comments POCT GLU (test code = 7889038390) 259 mg/dL 70-110 H Lab Interpretation (test code = Abnormal 45314-0) [facility] GLUCOSE (AUTOMATED)2021-10-05 05:31:31 Test Item Value Reference Range Interpretation Comments POCT GLU (test code = 6005770120) 307 mg/dL 70-110 H Lab Interpretation (test code = Abnormal 11227-7) [facility] GLUCOSE (AUTOMATED)2021-10-04 22:05:01 Test Item Value Reference Range Interpretation Comments POCT GLU (test code = 7459496893) 315 mg/dL 70-110 H Lab Interpretation (test code = Abnormal 55612-5) [facility] GLUCOSE (AUTOMATED)2021-10-04 17:06:43 Test Item Value Reference Range Interpretation Comments POCT GLU (test code = 3495520645) 294 mg/dL 70-110 H Lab Interpretation (test code = Abnormal 39142-2) [facility] 16:21:11 Test Item Value Reference Range Interpretation Comments MAGNESIUM (test code = 0252527110) 1.9 mg/dL 1.7-2.4 Lab Interpretation (test code = Normal 33372-8) [facility] (NA, K, CL, CO2, GLUCOSE, BUN, CREATININE, CA)2021-10-04 16:20:50 Test Item Value Reference Range Interpretation Comments NA (test code = 133 mmol/L 135-145 L 0581053312) K (test code = 3.4 mmol/L 3.5-5 L 5945739689) CL (test code = 95 mmol/L 98-108 L 3830512462) CO2 TOTAL (test code = 29 mmol/L 23-31 6116543440) AGAP (test code = 2-16 0743807571) BUN (test code = 13 mg/dL 7-23 7494883340) GLUCOSE (test code = 266 mg/dL 70-110 H 1781963846) CREATININE (test code = 0.64 mg/dL 0.5-1.04 2863030861) CALCIUM (test code = 8.6 mg/dL 8.6-10.6 8320355345) eGFR (test code = mL/min/1.73m2 7415557552) LAKESHIA (test code = LAKESHIA) Association of Glomerular Filtration Rate (GFR) and Staging of Kidney Disease* + --+ --+ ------+| GFR (mL/min/1.73 m2) ?| With Kidney Damage ?| ?Without Kidney Damage+ --------+ --------+ +| ?>90 ?| ?Stage one ?| ? Normal ?+ ---+ ---+ -------+| ?60-89 ?| ?Stage two ?| ? Decreased GFR ? + --+ --+ ------+| ?30-59 ?| ?Stage three ?| ? Stage three ? + --+ --+ ------+| ?15-29 ?| ?Stage four ? | ? Stage four ?+ ---+ ---+ -------+| ?<15 (or dialysis) ? ?| ?Stage five ? | ? Stage five ?+ ---+ ---+ -------+ *Each stage assumes the associated GFR level has been in effect for at least three months. ?Stages 1 to 5, with or without kidney disease, indicate chronic kidney disease. Notes: Determination of stages one and two (with eGFR >59mL/min/1.73 m2) requires estimation of kidney damage for at least three months as defined by structural or functional abnormalities of the kidney, manifested by either:Pathological abnormalities or Markers of kidney damage (including abnormalities in the composition of the blood or urine or abnormalities in imaging tests). Lab Interpretation Abnormal (test code = 07910-8) [facility] CenterPHOSPHORUS20[facility] 16:20:30 Test Item Value Reference Range Interpretation Comments PHOSPHORUS (test code = 1761083174) 2.6 mg/dL 2.5-5 Lab Interpretation (test code = Normal 57210-8) [facility] GLUCOSE (AUTOMATED)2021-10-04 13:00:44 Test Item Value Reference Range Interpretation Comments POCT GLU (test code = 5677872462) 233 mg/dL 70-110 H Lab Interpretation (test code = Abnormal 53272-7) [facility] GLUCOSE (AUTOMATED)2021-10-04 08:50:35 Test Item Value Reference Range Interpretation Comments POCT GLU (test code = 5912792664) 247 mg/dL 70-110 H Lab Interpretation (test code = Abnormal 08526-3) [facility] GLUCOSE (AUTOMATED)2021-10-04 04:51:58 Test Item Value Reference Range Interpretation Comments POCT GLU (test code = 3910416142) 330 mg/dL 70-110 H Lab Interpretation (test code = Abnormal 96944-2) [facility] GLUCOSE (AUTOMATED)2021-10-04 01:57:26 Test Item Value Reference Range Interpretation Comments POCT GLU (test code = 2836393929) 332 mg/dL 70-110 H Lab Interpretation (test code = Abnormal 59212-0) [facility] GLUCOSE (AUTOMATED)2021-10-04 00:39:09 Test Item Value Reference Range Interpretation Comments POCT GLU (test code = 1248366540) 371 mg/dL 70-110 H Lab Interpretation (test code = Abnormal 54434-6) [facility] GLUCOSE (AUTOMATED)2021-10-03 22:00:26 Test Item Value Reference Range Interpretation Comments POCT GLU (test code = 7906759638) 349 mg/dL 70-110 H Lab Interpretation (test code = Abnormal 47920-9) [facility] GLUCOSE (AUTOMATED)2021-10-03 22:00:26 Test Item Value Reference Range Interpretation Comments POCT GLU (test code = 6681300751) 301 mg/dL 70-110 H Lab Interpretation (test code = Abnormal 53608-7) [facility] CenterTran[facility] echo ([facility]E)2021-10-03 21:43:16 Test Item Value Reference Range Interpretation Comments Height (test code = in 3676493213) Weight (test code = lbs 2046444380) Systolic BP (test code = mmHg 2991156620) Diastolic BP (test code mmHg = 4645621305) Heart Rate (test code = bpm 1703368826) BSA (test code = 3.0 m2 6220204032) LVOT diameter (test code 2.17 cm = 0567171810) Ao root annulus (test 3.2 cm code = 2148969875) Ao root diam (test code 3.20 cm = 8949005804) Aortic root (test code = 3.2 cm 2608028894) LA size (test code = 4.7 cm 0205905799) ACS (test code = 2.70 cm 1001424203) PV PEAK VELOCITY (test 73.7 cm/s code = 6204057339) PV peak gradient (test mmHg code = 9478541223) MV E-F slope (test code 40.90 cm/s = 7497236888) MV Peak E Chandan (test code 70.8 cm/s = 1116771862) MV Peak A Chandan (test code 59.7 cm/s = 0420171830) E/A ratio (test code = ratio 1203957468) MV valve area p 1/2 3.50 cm2 method (test code = 2354230712) MV dec slope (test code 333.50 cm/s2 = 3055861964) MV P1/2t max chandan (test 71.80 cm/s code = 6543060684) MR max PG (test code = 6.90 mm[Hg] 1862680048) MR max chandan (test code = 131.70 cm/s 5464021551) Mr max chandan (test code = 131.7 m/s 7402041524) LVOT stroke volume (test 73.00 cm3 code = 6917996183) LVOT peak chandan (test code 116.9 cm/s = 8639576344) LVOT mn grad (test code mmHg = 2685012244) AV LVOT peak gradient mmHg (test code = 0687714842) LVOT peak VTI (test code 19.7 cm = 1427917580) LV V1 mean (test code = 72.40 cm/s 8903692624) Aortic valve mean 101.2 cm/s velocity (test code = 5554841126) Ao peak chandan (test code = 160.2 cm/s 0022741833) Ao VTI (test code = 28.9 cm 3668397374) AV area by cont VTI 2.5 cm2 (test code = 5705511659) AV area peak chandan (test 2.7 cm2 code = 1545634963) Ao max PG (test code = 10.30 mm[Hg] 3822051984) AV peak gradient (test mmHg code = 7048137343) AV valve area (test code 2.50 cm2 = 4893220034) AV mean gradient (test mmHg code = 2388528951) LVIDD (test code = 4.70 cm 0891152358) IVS (test code = 1.21 cm 1048559463) Interventricular Septum 1.21 cm Diastolic Thickness by 2D (test code = 1471902) LVPWD (test code = 1.22 cm 1276276831) PW (test code = 1.22 cm 0.6-1.0 5345786818) EF(Teich) (test code = 58.60 % 8327225701) LVIDS (test code = 3.20 cm 5696411427) FS (test code = 31 % 7093083433) EF - 2D (test code = 58.60 % 23077857) Radiology Study observation (narrative) (test code = 99844-7) LAKESHIA (test code = LAKESHIA) Formatting of this result is different from the original. ?Left?Ventricle: Left ventricle size is normal. Mildly increased wall thickness. Normal wall motion. Normal systolic function with a visually estimated EF of 55 - 60%. Unable to assess diastolic function due to poor image quality. ?Tricuspid?Valve: Right ventricular systolic pressure = 23 mmHg + RA pressure ?IVC/SVC: IVC was not well visualized. Left VentricleLeft ventricle size is normal. Mildly increased wall thickness. Normal wall motion. Normal systolic function with a visually estimated EF of 55 - 60%. Unable to assess diastolic function due to poor image quality.Right VentricleNot well visualized.Left AtriumLeft atrium size is normal.Right AtriumNot well visualized.IVC/SVCIVC was not well visualized.Mitral ValveMitral valve structure is normal. Trace transvalvular regurgitation.Tricusp id ValveTricuspid valve structure is normal. Trace transvalvular regurgitation. Right ventricular systolic pressure = 23 mmHg + RA pressureAortic ValveNot well visualized.Pulmonic ValveNot well visualized.Ascending AortaAorta is normal in size.PericardiumThe pericardium is normal.Study DetailsStudy quality was technically limited. A complete echocardiogram was performed using 2D, color flow Doppler and spectral Doppler. 5 mL of Lumason ultrasound enhancing agent used. [facility] CenterOSMOLALITY, SERUM OR [id number] 17:12:23 Test Item Value Reference Range Interpretation Comments OSMOLALITY (test code = See_Comment [Au tomated message] 2692-2) The system [employer] generated this result transmitted ref erence range: 278 - 30 5 mOsm/kg. The re ference range was not u sed to interpret this result as normal/abnor mal. Lab Interpretation (test Normal code = 32156-7) [facility] CenterPROCALCITONIN2022-07-15 16:45:07 Test Item Value Reference Interpretation Comments Range Procalcitonin (test 0.18 ng/mL See_Comment H [Automa kenroy code = 0498163564) message] The system which generated this result transmitted reference range: <=0.07. The reference range was not used to interpret this result as normal/abnormal . LAKESHIA (test code = INTERPRETATION OF LAKESHIA) PROCALCITONIN RESULTS IN ADULTS >= 18 YEARS OF AGE Initiation and discontinuation of antibiotics on patients with suspected or confirmed Lower Respiratory Tract Infection in Adults >= 18 years of age. + +------ + ----+ +|Procalcit onin |Interpretation ?|Antibiotic ? ? |Considerations ? |ng/mL ? | ?|recommendation | ? + +------ + ----+ +| <0.1 ? | Bacterial ? ? ?| Strongly ? ? ?| ? | ?| infection very | discouraged ? | Overruling: ? | ?| unlikely ? ? ? | ? | ? Clinically unstable ? ? ? + +------ + ----+ ? High risk for adverse ? ? | <0.25 ?| Bacterial ? ? ?| Discouraged ? | ? outcome ? | ?| infection ? ? ?| ? | ? SEE IMPORTANT NOTE ?| ?| unlikely ? ? ? | ? | ? + +------ + ----+ +| >=0.25 ? ? ? | Bacterial ? ? ?| Encouraged ? ?| ? | ?| infection ? ? ?| ? | ? | ?| likely ? | ? | Consider treatment failure ?+ +----- + -----+ if levels does not decrease | >0.5 ? | Bacterial ? ? ?| Strongly ? ? ?| appropriately ? | ?| infection very | encouraged ? ?| ? | ?| likely ? | ? | ? + +------ + ----+ + Discontinuation of antibiotics in high-acuity patients with suspected or confirmed sepsis in Adults >= 18 years of age. + +------ + ----+ +|Procalcit onin |Interpretation ?|Antibiotic ? ? |Considerations ? |ng/mL ? | ?|recommendation | ? + +------ + ----+ +| <0.25 ?| Bacterial ? ? ?| Strongly ? ? ?| ? | ?| infection very | discouraged ? | Overruling: ? | ?| unlikely ? ? ? | ? | ? Clinically unstable ? ? ? + +------ + ----+ ? High risk for adverse ? ? | <0.5 or drop | Bacterial ? ? ?| Discouraged ? | ? outcome ? | >80% from ? ?| infection ? ? ?| ? | ? SEE IMPORTANT NOTE ?| highest PCT ?| unlikely ? ? ? | ? | ? | level ?| ?| ? | ? + +------ + ----+ +| >=0.5 ?| Bacterial ? ? ?| Encouraged ? ?| ? | ?| infection ? ? ?| ? | ? | ?| likely ? | ? | Consider treatment failure ?+ +----- + -----+ if levels does not decrease | >1.0 ? | Bacterial ? ? ?| Strongly ? ? ?| appropriately ? | ?| infection very | encouraged ? ?| ? | ?| likely ? | ? | ? + +------ + ----+ + Percentage of drop of Procalcitonin calculation for Discontinuation of antibiotics in high-acuity patients with suspected or confirmed sepsis in Adults >= 18 years of age. ? Procalcitonin highest{}-Procalcitoni n current{}Delta Procalcitonin = ___ x100% ? Procalcitonin current {} IMPORTANT NOTE: Procalcitonin may be elevated without bacterial infection by physiologic stress related to trauma, hardy, chronic dialysis, metastatic cancer, surgery in the past seven days, malaria, some fungal infections, and some forms of vasculitis. The interpretation algorithm may not apply to patients with immunosuppression (equivalent of >10 mg of prednisone daily), HIV with CD4 cell count < 350 cells/mm3, active malignancy on systemic chemotherapy, solid organ transplant or hematopoietic stem cell transplantation, or hospital acquired pneumonia. Additionally, some clinical trials of procalcitonin have excluded patients with shock requiring vasopressor use, acute respiratory failure requiring mechanical ventilation, or those with known lung abscess/empyema. For further information please refer to:[email or web address] Lab Interpretation Abnormal (test code = 81805-8) [facility] CenterOSMOLALITY, SERUM OR [id number] 14:29:23 Test Item Value Reference Range Interpretation Comments OSMOLALITY (test code = See_Comment [Au tomated message] 2692-2) The system [employer] generated this result transmitted ref erence range: 278 - 30 5 mOsm/kg. The re ference range was not u sed to interpret this result as normal/abnor mal. Lab Interpretation (test Normal code = 85622-4) [facility] CenterLOW-DENSITY LIPOPROTEIN, [id number] 14:11:43 Test Item Value Reference Range Interpretation Comments dLDL Chol (test code = 185 mg/dL See_Comment H [Aut omated message] 38348-6) The system [employer] generated this result transmit kenroy reference range : <=130. The refe rence range was not u sed to interpret th is result as normal/abnormal . Lab Interpretation (test Abnormal code = 07122-1) [facility] CenterTROPONIN [id number] 13:46:40 Test Item Value Reference Interpretation Comments Range TROPONIN I (test 0.003 ng/mL See_Comment [Automated code = 2274077640) message] The system which generated this result transmitted reference range : <=0.034. The reference range was not used to interpret this result as normal/abnormal . LAKESHIA (test code = Reference (Normal) LAKESHIA) Range (defined by the 99th percentile reference limit): <= 0.034 ng/mL Note: Cardiac troponin begins to rise 3-4 hours after the onset of ischemia. Repeat in 4-6 hours if the sample was drawn within 3-4 hours of the onset of the symptom and found normal. Diagnosis of myocardial injury is made with acute changes in cTn concentrations with at least one serial sample above the 99th percentile upper reference limit (URL), taken together with the patient's clinical presentation. Biotin has been reported to cause a negative bias, interpret results relative to patient's use of biotin. Lab Interpretation Normal (test code = 65438-9) [facility] CenterPO[facility]2021-10-03 12:51:20 Test Item Value Reference Range Interpretation Comments POCT GLU (test code = 1493030612) 348 mg/dL 70-110 H Lab Interpretation (test code = Abnormal 35726-1) [facility] CenterVITAMIN D, [id number] 12:30:15 Test Item Value Reference Range Interpretation Comments VIT D 25OH (test code = 16 ng/mL 25-80 L 03438-7) LAKESHIA (test code = LAKESHIA) Deficiency: <20 ng/mLInsufficiency: 20-24 ng/mLOptimal: 25-80 ng/mL Lab Interpretation (test Abnormal code = 14794-7) [facility] CenterURIC [id number] 12:07:35 Test Item Value Reference Range Interpretation Comments URIC ACID (test code = 7221328752) 6.5 mg/dL 2.9-6 H Lab Interpretation (test code = Abnormal 35333-0) [facility] CenterCREATINE [id number] 12:07:14 Test Item Value Reference Range Interpretation Comments CK (test code = 7810677586) 27 U/L 33-194 L Lab Interpretation (test code = Abnormal 46125-0) [facility] CenterTROPONIN [id number] 11:44:30 Test Item Value Reference Interpretation Comments Range TROPONIN I (test 0.004 ng/mL See_Comment [Automated code = 2435222087) message] The system which generated this result transmitted reference range : <=0.034. The reference range was not used to interpret this result as normal/abnormal . LAKESHIA (test code = Reference (Normal) LAKESHIA) Range (defined by the 99th percentile reference limit): <= 0.034 ng/mL Note: Cardiac troponin begins to rise 3-4 hours after the onset of ischemia. Repeat in 4-6 hours if the sample was drawn within 3-4 hours of the onset of the symptom and found normal. Diagnosis of myocardial injury is made with acute changes in cTn concentrations with at least one serial sample above the 99th percentile upper reference limit (URL), taken together with the patient's clinical presentation. Biotin has been reported to cause a negative bias, interpret results relative to patient's use of biotin. Lab Interpretation Normal (test code = 85702-4) [facility] CenterN-TERMINAL [id number] 11:41:08 Test Item Value Reference Range Interpretation Comments NT-proBNP (test code 33 pg/mL See_Comment [Autom ated = 8229237794) message] The system which generated this result transmitted reference range : <=125. The reference range was not used to interpret this result as normal/abnormal . LAKESHIA (test code = LAKESHIA) Biotin has been reported to cause a negative bias, interpret results relative to patient's use of biotin. Lab Interpretation Normal (test code = 29685-1) [facility] CenterCOMP. METABOLIC PANEL (30012)2021-10-03 11:36:54 Test Item Value Reference Range Interpretation Comments NA (test code = 131 mmol/L 135-145 L 7216457735) K (test code = 2.8 mmol/L 3.5-5 LL 7659672501) CL (test code = 90 mmol/L 98-108 L 3381507039) CO2 TOTAL (test code = 30 mmol/L 23-31 9671153017) AGAP (test code = 2-16 7467089206) BUN (test code = 18 mg/dL 7-23 4480204885) GLUCOSE (test code = 358 mg/dL 70-110 H 3339237587) CREATININE (test code = 0.63 mg/dL 0.5-1.04 2191096032) TOTAL BILI (test code = 0.4 mg/dL 0.1-1.1 3749667423) CALCIUM (test code = 9.0 mg/dL 8.6-10.6 0307147443) T PROTEIN (test code = 7.4 g/dL 6.3-8.2 9808393916) ALBUMIN (test code = 4.0 g/dL 3.5-5 6817003312) ALK PHOS (test code = 168 U/L 34-122 H 2587588294) ALTv (test code = 47 U/L 5-35 H 1742-6) AST(SGOT) (test code = 45 U/L 13-40 H 7840896549) eGFR (test code = mL/min/1.73m2 6297757687) LAKESHIA (test code = LAKESHIA) Association of Glomerular Filtration Rate (GFR) and Staging of Kidney Disease* + --+ --+ ------+| GFR (mL/min/1.73 m2) ?| With Kidney Damage ?| ?Without Kidney Damage+ --------+ --------+ +| ?>90 ?| ?Stage one ?| ? Normal ?+ ---+ ---+ -------+| ?60-89 ?| ?Stage two ?| ? Decreased GFR ? + --+ --+ ------+| ?30-59 ?| ?Stage three ?| ? Stage three ? + --+ --+ ------+| ?15-29 ?| ?Stage four ? | ? Stage four ?+ ---+ ---+ -------+| ?<15 (or dialysis) ? ?| ?Stage five ? | ? Stage five ?+ ---+ ---+ -------+ *Each stage assumes the associated GFR level has been in effect for at least three months. ?Stages 1 to 5, with or without kidney disease, indicate chronic kidney disease. Notes: Determination of stages one and two (with eGFR >59mL/min/1.73 m2) requires estimation of kidney damage for at least three months as defined by structural or functional abnormalities of the kidney, manifested by either:Pathological abnormalities or Markers of kidney damage (including abnormalities in the composition of the blood or urine or abnormalities in imaging tests). Lab Interpretation Abnormal (test code = 65396-2) [facility] CenterMAGNESIUM2022-07-15 11:32:51 Test Item Value Reference Range Interpretation Comments MAGNESIUM (test code = 5857677384) 2.0 mg/dL 1.7-2.4 Lab Interpretation (test code = Normal 56765-4) [facility] CenterPHOSPHORUS2022-07-15 11:32:51 Test Item Value Reference Range Interpretation Comments PHOSPHORUS (test code = 7947311384) 4.4 mg/dL 2.5-5 Lab Interpretation (test code = Normal 65927-7) [facility]PO[facility]2021-10-03 10:29:09 Test Item Value Reference Range Interpretation Comments POCT GLU (test code = 0635484206) 361 mg/dL 70-110 H Lab Interpretation (test code = Abnormal 01957-5) [facility] WITH [id number] 10:26:42 Test Item Value Reference Range Interpretation Comments WBC (test code = See_Comment [Automated 6690-2) message] The sy stem which generated this result transmitted reference range : 4.30 - 11.10 10*3/?L. The reference range was not used to interpret this result as normal/abnormal . RBC (test code = See_Comment [Automated 789-8) message] The sy stem which generated this result transmitted reference range : 3.93 - 5.25 10*6/?L. The reference range was not used to interpret this result as normal/abnormal . HGB (test code = 13.3 g/dL 11.6-15 718-7) HCT (test code = 39.3 % 35.7-45.2 4544-3) MCV (test code = 79.2 fL 80.6-95.5 L 787-2) MCH (test code = 26.8 pg 25.9-32.8 785-6) MCHC (test code = 33.8 g/dL 31.6-35.1 786-4) RDW-SD (test code = 37.2 fL 39-49.9 L 84421-7) RDW-CV (test code = 13.2 % 12-15.5 788-0) PLT (test code = See_Comment [Automated 777-3) message] The sy stem which generated this result transmitted reference range : 166 - 358 10*3/ ?L. The reference r alee was not used to interpret this result as normal/abnormal . MPV (test code = 10.5 fL 9.5-12.9 03713-3) NRBC/100 WBC (test See_Comment [Automat ed code = 5332967069) message] The system which generated this result transmitted reference range : 0.0 - 10.0 /100 WBCs. The refer ence range was not u sed to interpret th is result as normal/abnormal . NRBC x10^3 (test code See_Comment [Auto mated = 4055354545) message] The s ystem which generated this result transmitted reference range : 10*3/?L. The reference range was not used to interpret this result as normal/abnormal . GRAN MAT (NEUT) % 50.8 % (test code = 770-8) IMM GRAN % (test code 0.20 % = 2696000757) LYMPH % (test code = 37.9 % 736-9) MONO % (test code = 7.9 % 5905-5) EOS % (test code = 2.7 % 713-8) BASO % (test code = 0.5 % 706-2) GRAN MAT x10^3(ANC) 2.85 10*3/uL 1.88-7.09 (test code = 1174751146) IMM GRAN x10^3 (test 0-0.06 code = 6045836205) LYMPH x10^3 (test code 2.12 10*3/uL 1.32-3.29 = 731-0) MONO x10^3 (test code 0.44 10*3/uL 0.33-0.92 = 742-7) EOS x10^3 (test code = 0.15 10*3/uL 0.03-0.39 711-2) BASO x10^3 (test code 0.03 10*3/uL 0.01-0.07 = 704-7) Lab Interpretation Abnormal (test code = 20317-5) [facility] [id number] 08:40:31 Test Item Value Reference Range Interpretation Comments VIT B12 (test code = 468 pg/mL 240-930 7347524183) LAKESHIA (test code = LAKESHIA) Biotin has been reported to cause a positive bias, interpret results relative to patient's use of biotin. Lab Interpretation (test Normal code = 91924-1) [facility]2021-10-03 06:59:12 Test Item Value Reference Range Interpretation Comments POCT GLU (test code = 5585903892) 398 mg/dL 70-110 H Lab Interpretation (test code = Abnormal 63368-9) [facility] CenterSEDIMENTATION [id number] 04:12:50 Test Item Value Reference Range Interpretation Comments ESR (test code = See_Comment H [Automated message] 6153890327) The system [employer] generated this result transmitted ref erence range: 0 - 20 m m/HR. The reference r alee was not used to interpret this result as normal/abnor mal. Lab Interpretation (test Abnormal code = 20304-6) [facility] CenterFERRITIN [id number] 03:21:45 Test Item Value Reference Range Interpretation Comments FERRITIN (test code = 12.0 ng/mL 6-137 6156831711) LAKESHIA (test code = LAKESHIA) Biotin has been reported to cause a negative bias, interpret results relative to patient's use of biotin. Lab Interpretation (test Normal code = 98234-5) [facility] CenterTHY[facility]ID STIMULATING [id number] 03:17:43 Test Item Value Reference Range Interpretation Comments TSH (test code = See_Comment [Automated message] 3128615952) The system [employer] generated this result transmitted ref erence range: 0.45 - 4 .70 mIU/L. The refe rence range was not u sed to interpret this result as normal/abnor mal. Lab Interpretation (test Normal code = 44437-7) [facility]21-10-03 03:12:31 Test Item Value Reference Range Interpretation Comments POCT GLU (test code = 3089375016) 419 mg/dL 70-110 H Lab Interpretation (test code = Abnormal 58752-9) [facility] CenterIRON [id number] 03:10:45 Test Item Value Reference Range Interpretation Comments IRON (test code = 9240095113) 55 ug/dL 50-160 TIBC (test code = 0784333686) 530 ug/dL 250-410 H % FE SAT (test code = 8746020677) 10 % 20-50 L Lab Interpretation (test code = Abnormal 47224-1) [facility] CenterTROPONIN [id number] 02:59:02 Test Item Value Reference Interpretation Comments Range TROPONIN I (test 0.002 ng/mL See_Comment [Automated code = 8218680054) message] The system which generated this result transmitted reference range : <=0.034. The reference range was not used to interpret this result as normal/abnormal . LAKESHIA (test code = Reference (Normal) LAKESHIA) Range (defined by the 99th percentile reference limit): <= 0.034 ng/mL Note: Cardiac troponin begins to rise 3-4 hours after the onset of ischemia. Repeat in 4-6 hours if the sample was drawn within 3-4 hours of the onset of the symptom and found normal. Diagnosis of myocardial injury is made with acute changes in cTn concentrations with at least one serial sample above the 99th percentile upper reference limit (URL), taken together with the patient's clinical presentation. Biotin has been reported to cause a negative bias, interpret results relative to patient's use of biotin. Lab Interpretation Normal (test code = 33568-3) [facility] CenterLIPID PANEL (52052)(TOTAL CHOLESTEROL, TRIGLYCERIDES, HDL)2021-10-03 02:57:26 Test Item Value Reference Range Interpretation Comments CHOL (test code = 281 mg/dL 120-200 H 5935709448) HDL (test code = 29 mg/dL See_Comment L [Automated message] 6923720978) The system [employer] generated this result transmitted ref erence range: >=50. Th e reference range was not used to int erpret this result as normal/abnormal . HDLC RATIO (test code = See_Comment H [Au tomated message] 3165247436) The system [employer] generated this result transmitted ref erence range: <=4.5. T he reference range was not used to int erpret this result as normal/abnormal . TRIG (test code = 419 mg/dL 30-170 H 5770605779) LDL CHOL (test code = Unable to calculate 16367-7) LDL due to elev ated triglyceride le chandan greater than 40 0 mg/dL. VLDL (test code = 84 mg/dL 5-60 H 3455372700) Lab Interpretation Abnormal (test code = 73868-0) [facility]MAGN[facility]IUM2022-07-15 02:46:43 Test Item Value Reference Range Interpretation Comments MAGNESIUM (test code = 4218359510) 1.8 mg/dL 1.7-2.4 Lab Interpretation (test code = Normal 87909-0) [facility] CenterPHOSPHORUS2022-07-15 02:46:43 Test Item Value Reference Range Interpretation Comments PHOSPHORUS (test code = 6475675304) 4.6 mg/dL 2.5-5 Lab Interpretation (test code = Normal 83952-9) [facility] CenterURIC [id number] 02:46:23 Test Item Value Reference Range Interpretation Comments URIC ACID (test code = 6891250569) 5.7 mg/dL 2.9-6 Lab Interpretation (test code = Normal 88729-1) [facility]PO[facility]2021-10-03 00:06:33 Test Item Value Reference Range Interpretation Comments POCT GLU (test code = 8973935461) 435 mg/dL 70-110 H Lab Interpretation (test code = Abnormal 04710-6) [facility] CenterAC Panel 20 + Lactic [id number] 22:34:34 Test Item Value Reference Range Interpretation Comments PH (test code = 2) 7.35-7.45 PCO2 (test code = See_Comment [Automate d 9117757061) message] The sy stem which generated this result transmitted reference range : 35 - 45 mmHg. The reference range was not used to interpret this result as normal/abnormal . PO2 (test code = See_Comment L [Automated 4687487455) message] The sy stem which generated this result transmitted reference range : 80 - 100 mmHg. The reference range was not used to interpret this result as normal/abnormal . HCO3 (test code = See_Comment H [Automate d 7927705061) message] The sy stem which generated this result transmitted reference range : 22 - 26 mEq/L. The reference range was not used to interpret this result as normal/abnormal . BE (test code = See_Comment [Automated 2681388590) message] The sy stem which generated this result transmitted reference range : -3.0 - 3.0 mEq/ L. The reference r alee was not used to interpret this result as normal/abnormal . THB (test code = 15.2 g/dL 12-16 7730909345) %O2HB (test code = 95.3 % 94-99 9797583658) %COHB ART (test code = 0.5 % 0-1.5 1512593355) %METHB ART (test code = 0.0 % 0.4-1.5 L 3470565637) VOL%O2 ART (test code = 20.4 % 15-23 4830248621) NA (test code = 129 mmol/L 135-145 L 5743481211) K+ (test code = 2.7 mmol/L 3.5-5 LL 3714842797) AC CA IONZ (test code = 4.80 mg/dL 4.5-5.3 1892243945) GLUCOSE (test code = 532 mg/dL 70-110 HH 6522574496) LACTIC ACID (test code 3.80 mmol/L 0.5-2.2 H = 9565293729) Lab Interpretation Abnormal (test code = 95576-8) [facility] CenterMAGNESIUM2022-01-23 06:25:50 Test Item Value Reference Range Interpretation Comments MAGNESIUM (test code = 5970341082) 1.3 mg/dL 1.7-2.4 L Lab Interpretation (test code = Abnormal 92417-0) [facility]. METABOLIC PANEL (48137)2021-04-13 06:25:30 Test Item Value Reference Range Interpretation Comments NA (test code = 131 mmol/L 135-145 L 7490243731) K (test code = 4.5 mmol/L 3.5-5.0 5821172243) CL (test code = 96 mmol/L 98-108 L 4591862654) CO2 TOTAL (test code = 30 mmol/L 23-31 9372025871) AGAP (test code = 2-16 6683531378) BUN (test code = 11 mg/dL 7-23 6995417256) GLUCOSE (test code = 369 mg/dL 70-110 H 7973937866) CREATININE (test code = 0.53 mg/dL 0.50-1.04 4819359054) TOTAL BILI (test code = 0.4 mg/dL 0.1-1.1 2151334294) CALCIUM (test code = 9.4 mg/dL 8.6-10.6 4401112047) T PROTEIN (test code = 7.1 g/dL 6.3-8.2 0076827359) ALBUMIN (test code = 4.0 g/dL 3.5-5.0 0127262634) ALK PHOS (test code = 208 U/L 34-122 H 8060281053) ALTv (test code = 88 U/L 5-35 H 1742-6) AST(SGOT) (test code = 119 U/L 13-40 H 7994682707) eGFR (test code = mL/min/1.73m2 9895020612) LAKESHAI (test code = LAKESHIA) Association of Glomerular Filtration Rate (GFR) and Staging of Kidney Disease* + --+ --+ ------+| GFR (mL/min/1.73 m2) ?| With Kidney Damage ?| ?Without Kidney Damage+ --------+ --------+ +| ?>90 ?| ?Stage one ?| ? Normal ?+ ---+ ---+ -------+| ?60-89 ?| ?Stage two ?| ? Decreased GFR ? + --+ --+ ------+| ?30-59 ?| ?Stage three ?| ? Stage three ? + --+ --+ ------+| ?15-29 ?| ?Stage four ? | ? Stage four ?+ ---+ ---+ -------+| ?<15 (or dialysis) ? ?| ?Stage five ? | ? Stage five ?+ ---+ ---+ -------+ *Each stage assumes the associated GFR level has been in effect for at least three months. ?Stages 1 to 5, with or without kidney disease, indicate chronic kidney disease. Notes: Determination of stages one and two (with eGFR >59mL/min/1.73 m2) requires estimation of kidney damage for at least three months as defined by structural or functional abnormalities of the kidney, manifested by either:Pathological abnormalities or Markers of kidney damage (including abnormalities in the composition of the blood or urine or abnormalities in imaging tests). Lab Interpretation Abnormal (test code = 60662-3) [facility] CenterHENOK [id number] 06:24:06 Test Item Value Reference Interpretation Comments Range TROPONIN I (test 0.008 ng/mL See_Comment [Automated code = 2031018109) message] The system which generated this result transmitted reference range : <=0.034. The reference range was not used to interpret this result as normal/abnormal . LAKESHIA (test code = Reference (Normal) LAKESHIA) Range (defined by the 99th percentile reference limit): <= 0.034 ng/mL Note: Cardiac troponin begins to rise 3-4 hours after the onset of ischemia. Repeat in 4-6 hours if the sample was drawn within 3-4 hours of the onset of the symptom and found normal. Diagnosis of myocardial injury is made with acute changes in cTn concentrations with at least one serial sample above the 99th percentile upper reference limit (URL), taken together with the patient's clinical presentation. Biotin has been reported to cause a negative bias, interpret results relative to patient's use of biotin. Lab Interpretation Normal (test code = 18449-8) [facility] CenterN-TERMINAL [id number] 06:21:06 Test Item Value Reference Range Interpretation Comments NT-proBNP (test code 114 pg/mL See_Comment [Autom ated = 8993520002) message] The system which generated this result transmitted reference range : <=125. The reference range was not used to interpret this result as normal/abnormal . LAKESHIA (test code = LAKESHIA) Biotin has been reported to cause a negative bias, interpret results relative to patient's use of biotin. Lab Interpretation Normal (test code = 78895-7) [facility] CenterD-[id number] 05:56:24 Test Item Value Reference Interpretation Comments Range D-DIMER (test code = See_Comment H [Autom ated 9423808016) message] The system which generated this result transmitted reference range : <0.41 ?g/mL (FEU). The reference range was not used to interpret this result as normal/abnormal . LAKESHIA (test code = This test may be LAKESHIA) used in conjunction with a clinical pretest probability (PTP) assessment model to exclude venous thromboembolism (VTE) in patients suspected of deep venous thrombosis (DVT) and pulmonary embolism (PE) A D-Dimer value less than 0.50 ?g/ml (FEU) has a negative predicative value of [...] the clinical context, in forming a diagnosis. Lab Interpretation Abnormal (test code = 42957-2) [facility] WITH [id number] 05:45:28 Test Item Value Reference Range Interpretation Comments WBC (test code = See_Comment L [Automated 6690-2) message] The sy stem which generated this result transmitted reference range : 4.30 - 11.10 10*3/?L. The reference range was not used to interpret this result as normal/abnormal . RBC (test code = See_Comment [Automated 789-8) message] The sy stem which generated this result transmitted reference range : 3.93 - 5.25 10*6/?L. The reference range was not used to interpret this result as normal/abnormal . HGB (test code = 13.1 g/dL 11.6-15.0 718-7) HCT (test code = 40.0 % 35.7-45.2 4544-3) MCV (test code = 82.3 fL 80.6-95.5 787-2) MCH (test code = 27.0 pg 25.9-32.8 785-6) MCHC (test code = 32.8 g/dL 31.6-35.1 786-4) RDW-SD (test code = 39.9 fL 39.0-49.9 90424-7) RDW-CV (test code = 13.5 % 12.0-15.5 788-0) PLT (test code = See_Comment [Automated 777-3) message] The sy stem which generated this result transmitted reference range : 166 - 358 10*3/ ?L. The reference r alee was not used to interpret this result as normal/abnormal . MPV (test code = 10.1 fL 9.5-12.9 82686-8) NRBC/100 WBC (test See_Comment [Automat ed code = 3241187132) message] The system which generated this result transmitted reference range : 0.0 - 10.0 /100 WBCs. The refer ence range was not u sed to interpret th is result as normal/abnormal . NRBC x10^3 (test code <0.01 See_Comment [Auto mated = 4070274356) message] The s ystem which generated this result transmitted reference range : 10*3/?L. The reference range was not used to interpret this result as normal/abnormal . GRAN MAT (NEUT) % 74.6 % (test code = 770-8) IMM GRAN % (test code 0.30 % = 4844743500) LYMPH % (test code = 13.3 % 736-9) MONO % (test code = 8.6 % 5905-5) EOS % (test code = 2.3 % 713-8) BASO % (test code = 0.9 % 706-2) GRAN MAT x10^3(ANC) 2.59 10*3/uL 1.88-7.09 (test code = 4696447721) IMM GRAN x10^3 (test <0.03 0.00-0.06 code = 9970668791) LYMPH x10^3 (test code 0.46 10*3/uL 1.32-3.29 L = 731-0) MONO x10^3 (test code 0.30 10*3/uL 0.33-0.92 L = 742-7) EOS x10^3 (test code = 0.08 10*3/uL 0.03-0.39 711-2) BASO x10^3 (test code 0.03 10*3/uL 0.01-0.07 = 704-7) Lab Interpretation Abnormal (test code = 60525-6) [facility]PO[facility] [id number] 00:25:00 Test Item Value Reference Range Interpretation Comments POCT PREG (test code = 1605) negative On board controls acceptable with yes C Line (test code = 3574) POCT PREG LOT # (test code = 3575) [id number] POCT PREG TEST DATE (test 04/21/2022 code = 3576) Lab Interpretation (test code = Normal 31212-0) [facility] CenterTHYROID STIMULATING [id number] 00:08:28 Test Item Value Reference Range Interpretation Comments TSH (test code = See_Comment [Automated message] 3128871857) The system [employer] generated this result transmitted ref erence range: 0.45 - 4 .70 mIU/L. The refe rence range was not u sed to interpret this result as normal/abnor mal. Lab Interpretation (test Normal code = 66905-0) [facility] CenterTROPONIN [id number] 23:50:23 Test Item Value Reference Interpretation Comments Range TROPONIN I (test 0.004 ng/mL See_Comment [Automated code = 0081403648) message] The system which generated this result transmitted reference range : <=0.034. The reference range was not used to interpret this result as normal/abnormal . LAKESHIA (test code = Reference (Normal) LAKESHIA) Range (defined by the 99th percentile reference limit): <= 0.034 ng/mL Note: Cardiac troponin begins to rise 3-4 hours after the onset of ischemia. Repeat in 4-6 hours if the sample was drawn within 3-4 hours of the onset of the symptom and found normal. Diagnosis of myocardial injury is made with acute changes in cTn concentrations with at least one serial sample above the 99th percentile upper reference limit (URL), taken together with the patient's clinical presentation. Biotin has been reported to cause a negative bias, interpret results relative to patient's use of biotin. Lab Interpretation Normal (test code = 48613-1) [facility] CenterACTIVATED PARTIAL THRMPLAS [id number] 23:49:07 Test Item Value Reference Range Interpretation Comments APTT Patient (test See_Comment [Automat ed code = 3173-2) message] The system which generated this result transmitted reference range : 23 - 38 Seconds . The reference range was not used to interpr et this result as normal/abnormal . LAKESHIA (test code = LAKESHIA) The [facility] patient population mean normal value for aPTT is 30 seconds. Lab Interpretation Normal (test code = 49228-7) [facility] CenterPROTHROMBIN TIME / [id number] 23:47:06 Test Item Value Reference Range Interpretation Comments PROTIME PATIENT (test See_Comment [Auto mated message] code = 5964-2) The system wh ich generated this result transmitted ref erence range: 12.0 - 1 4.7 Seconds. The re ference range was not u sed to interpret this result as normal/abnor mal. INR (test code = 6301-6) Nor mal INR <1.1; Warfarin Therap eutic range 2.0 to 3. 0 or 2.5 to 3.5, dep ending upon the indica tions. Lab Interpretation (test Normal code = 72696-5) [facility] CenterCOMP. METABOLIC PANEL (88416)2021-03-03 23:47:05 Test Item Value Reference Range Interpretation Comments NA (test code = 130 mmol/L 135-145 L 4012373597) K (test code = 5.1 mmol/L 3.5-5.0 H 2282922861) CL (test code = 94 mmol/L 98-108 L 0060632496) CO2 TOTAL (test code = 26 mmol/L 23-31 7900583776) AGAP (test code = 2-16 8743581769) BUN (test code = 17 mg/dL 7-23 8683976834) GLUCOSE (test code = 499 mg/dL 70-110 HH 6273581312) CREATININE (test code = 0.67 mg/dL 0.50-1.04 6829765072) TOTAL BILI (test code = 0.7 mg/dL 0.1-1.9 4262855921) CALCIUM (test code = 9.8 mg/dL 8.6-10.6 1062400960) T PROTEIN (test code = 7.5 g/dL 6.3-8.2 7096603356) ALBUMIN (test code = 4.2 g/dL 3.5-5.0 7430394482) ALK PHOS (test code = 195 U/L 34-122 H 5626643429) ALTv (test code = 63 U/L 5-35 H 1742-6) AST(SGOT) (test code = 60 U/L 13-40 H 5419371601) eGFR (test code = mL/min/1.73m2 7031685742) LAKESHIA (test code = LAKESHIA) Association of Glomerular Filtration Rate (GFR) and Staging of Kidney Disease* + --+ --+ ------+| GFR (mL/min/1.73 m2) ?| With Kidney Damage ?| ?Without Kidney Damage+ --------+ --------+ +| ?>90 ?| ?Stage one ?| ? Normal ?+ ---+ ---+ -------+| ?60-89 ?| ?Stage two ?| ? Decreased GFR ? + --+ --+ ------+| ?30-59 ?| ?Stage three ?| ? Stage three ? + --+ --+ ------+| ?15-29 ?| ?Stage four ? | ? Stage four ?+ ---+ ---+ -------+| ?<15 (or dialysis) ? ?| ?Stage five ? | ? Stage five ?+ ---+ ---+ -------+ *Each stage assumes the associated GFR level has been in effect for at least three months. ?Stages 1 to 5, with or without kidney disease, indicate chronic kidney disease. Notes: Determination of stages one and two (with eGFR >59mL/min/1.73 m2) requires estimation of kidney damage for at least three months as defined by structural or functional abnormalities of the kidney, manifested by either:Pathological abnormalities or Markers of kidney damage (including abnormalities in the composition of the blood or urine or abnormalities in imaging tests). Lab Interpretation Abnormal (test code = 47057-4) [facility] CenterN-[facility]MINAL [id number] 23:47:05 Test Item Value Reference Range Interpretation Comments NT-proBNP (test code 432 pg/mL See_Comment H [Autom ated = 0437831596) message] The system which generated this result transmitted reference range : <=125. The reference range was not used to interpret this result as normal/abnormal . LAKESHIA (test code = LAKESHIA) Biotin has been reported to cause a negative bias, interpret results relative to patient's use of biotin. Lab Interpretation Abnormal (test code = 03831-8) [facility] CenterMAGNESIUM2021-12-13 23:38:25 Test Item Value Reference Range Interpretation Comments MAGNESIUM (test code = 8972018302) 1.4 mg/dL 1.7-2.4 L Lab Interpretation (test code = Abnormal 17604-1) [facility] CenterCB WITH [id number] 23:24:39 Test Item Value Reference Range Interpretation Comments WBC (test code = See_Comment [Automated message] 6690-2) The system [employer] generated this result transmitted ref erence range: 4.30 - 1 1.10 10*3/?L. The re ference range was not u sed to interpret this result as normal/abnor mal. RBC (test code = See_Comment [Automated message] 789-8) The system [employer] generated this result transmitted ref erence range: 3.93 - 5 .25 10*6/?L. The re ference range was not u sed to interpret this result as normal/abnor mal. HGB (test code = 14.3 g/dL 11.6-15.0 718-7) HCT (test code = 43.9 % 35.7-45.2 4544-3) MCV (test code = 83.9 fL 80.6-95.5 787-2) MCH (test code = 27.3 pg 25.9-32.8 785-6) MCHC (test code = 32.6 g/dL 31.6-35.1 786-4) RDW-SD (test code 39.3 fL 39.0-49.9 = 44261-5) RDW-CV (test code 13.0 % 12.0-15.5 = 788-0) PLT (test code = See_Comment [Automated message] 777-3) The system [employer] generated this result transmitted ref erence range: 166 - 35 8 10*3/?L. The re ference range was not u sed to interpret this result as normal/abnor mal. MPV (test code = 10.4 fL 9.5-12.9 04899-2) NRBC/100 WBC (test See_Comment [Automat ed message] code = 1785134037) The syste m which generated this result transmitted ref erence range: 0.0 - 10 .0 /100 WBCs. The refer ence range was not u sed to interpret this result as normal/abnor mal. NRBC x10^3 (test <0.01 See_Comment [Automated message] code = 3627776765) The syste m which generated this result transmitted ref erence range: 10*3/?L. The reference range was not used to interpr et this result as normal/abnormal . GRAN MAT (NEUT) % 65.4 % (test code = 770-8) IMM GRAN % (test 0.50 % code = 3023815520) LYMPH % (test code 25.9 % = 736-9) MONO % (test code 5.7 % = 5905-5) EOS % (test code = 1.7 % 713-8) BASO % (test code 0.8 % = 706-2) GRAN MAT 4.16 10*3/uL 1.88-7.09 x10^3(ANC) (test code = 7580811125) IMM GRAN x10^3 0.03 10*3/uL 0.00-0.06 (test code = 5765136353) LYMPH x10^3 (test 1.65 10*3/uL 1.32-3.29 code = 731-0) MONO x10^3 (test 0.36 10*3/uL 0.33-0.92 code = 742-7) EOS x10^3 (test 0.11 10*3/uL 0.03-0.39 code = 711-2) BASO x10^3 (test 0.05 10*3/uL 0.01-0.07 code = 704-7) [facility] [id number] 06:40:44 Test Item Value Reference Interpretation Comments Range TROPONIN I (test 0.003 ng/mL See_Comment [Automated code = 1707051548) message] The system which generated this result transmitted reference range : <=0.034. The reference range was not used to interpret this result as normal/abnormal . LAKESHIA (test code = Reference (Normal) LAKESHIA) Range (defined by the 99th percentile reference limit): <= 0.034 ng/mL Note: Cardiac troponin begins to rise 3-4 hours after the onset of ischemia. Repeat in 4-6 hours if the sample was drawn within 3-4 hours of the onset of the symptom and found normal. Diagnosis of myocardial injury is made with acute changes in cTn concentrations with at least one serial sample above the 99th percentile upper reference limit (URL), taken together with the patient's clinical presentation. Biotin has been reported to cause a negative bias, interpret results relative to patient's use of biotin. Lab Interpretation Normal (test code = 20936-5) [facility] [id number] 04:15:42 Test Item Value Reference Interpretation Comments Range TROPONIN I (test 0.003 ng/mL See_Comment [Automated code = 2618743747) message] The system which generated this result transmitted reference range : <=0.034. The reference range was not used to interpret this result as normal/abnormal . LAKESHIA (test code = Reference (Normal) LAKESHIA) Range (defined by the 99th percentile reference limit): <= 0.034 ng/mL Note: Cardiac troponin begins to rise 3-4 hours after the onset of ischemia. Repeat in 4-6 hours if the sample was drawn within 3-4 hours of the onset of the symptom and found normal. Diagnosis of myocardial injury is made with acute changes in cTn concentrations with at least one serial sample above the 99th percentile upper reference limit (URL), taken together with the patient's clinical presentation. Biotin has been reported to cause a negative bias, interpret results relative to patient's use of biotin. Lab Interpretation Normal (test code = 81040-1) [id number] 04:12:45 Test Item Value Reference Range Interpretation Comments NT-proBNP (test code 44 pg/mL See_Comment [Autom ated = 9735028114) message] The system which generated this result transmitted reference range : <=125. The reference range was not used to interpret this result as normal/abnormal . LAKESHIA (test code = LAKESHIA) Biotin has been reported to cause a negative bias, interpret results relative to patient's use of biotin. Lab Interpretation Normal (test code = 96400-1) [facility] 04[facility]04:19 Test Item Value Reference Range Interpretation Comments MAGNESIUM (test code = 7696111513) 1.6 mg/dL 1.7-2.4 L Lab Interpretation (test code = Abnormal 81672-5) [facility] (60013)2020-12-31 04:03:59 Test Item Value Reference Range Interpretation Comments NA (test code = 132 mmol/L 135-145 L 0998855622) K (test code = 4.6 mmol/L 3.5-5.0 0579378287) CL (test code = 95 mmol/L 98-108 L 9600987118) CO2 TOTAL (test code = 28 mmol/L 23-31 6900958816) AGAP (test code = 2-16 9825607046) BUN (test code = 17 mg/dL 7-23 3300562482) GLUCOSE (test code = 361 mg/dL 70-110 H 9989888230) CREATININE (test code = 0.81 mg/dL 0.50-1.04 0533273273) TOTAL BILI (test code = 0.4 mg/dL 0.1-1.8 8591269480) CALCIUM (test code = 9.7 mg/dL 8.6-10.6 7234194055) T PROTEIN (test code = 7.5 g/dL 6.3-8.2 1554710068) ALBUMIN (test code = 4.3 g/dL 3.5-5.0 3954189296) ALK PHOS (test code = 147 U/L 34-122 H 8123573975) ALTv (test code = 49 U/L 5-35 H 1742-6) AST(SGOT) (test code = 51 U/L 13-40 H 1137847718) eGFR (test code = mL/min/1.73m2 7551340591) LAKESHIA (test code = LAKESHIA) Association of Glomerular Filtration Rate (GFR) and Staging of Kidney Disease* + --+ --+ ------+| GFR (mL/min/1.73 m2) ?| With Kidney Damage ?| ?Without Kidney Damage+ --------+ --------+ +| ?>90 ?| ?Stage one ?| ? Normal ?+ ---+ ---+ -------+| ?60-89 ?| ?Stage two ?| ? Decreased GFR ? + --+ --+ ------+| ?30-59 ?| ?Stage three ?| ? Stage three ? + --+ --+ ------+| ?15-29 ?| ?Stage four ? | ? Stage four ?+ ---+ ---+ -------+| ?<15 (or dialysis) ? ?| ?Stage five ? | ? Stage five ?+ ---+ ---+ -------+ *Each stage assumes the associated GFR level has been in effect for at least three months. ?Stages 1 to 5, with or without kidney disease, indicate chronic kidney disease. Notes: Determination of stages one and two (with eGFR >59mL/min/1.73 m2) requires estimation of kidney damage for at least three months as defined by structural or functional abnormalities of the kidney, manifested by either:Pathological abnormalities or Markers of kidney damage (including abnormalities in the composition of the blood or urine or abnormalities in imaging tests). Lab Interpretation Abnormal (test code = 94479-2) [facility] WITH [id number] 03:53:03 Test Item Value Reference Range Interpretation Comments WBC (test code = See_Comment [Automated message] 6690-2) The system [employer] generated this result transmitted ref erence range: 4.30 - 1 1.10 10*3/?L. The re ference range was not u sed to interpret this result as normal/abnor mal. RBC (test code = See_Comment [Automated message] 789-8) The system [employer] generated this result transmitted ref erence range: 3.93 - 5 .25 10*6/?L. The re ference range was not u sed to interpret this result as normal/abnor mal. HGB (test code = 13.8 g/dL 11.6-15.0 718-7) HCT (test code = 42.2 % 35.7-45.2 4544-3) MCV (test code = 85.4 fL 80.6-95.5 787-2) MCH (test code = 27.9 pg 25.9-32.8 785-6) MCHC (test code = 32.7 g/dL 31.6-35.1 786-4) RDW-SD (test code 42.2 fL 39.0-49.9 = 68502-6) RDW-CV (test code 13.5 % 12.0-15.5 = 788-0) PLT (test code = See_Comment [Automated message] 777-3) The system [employer] generated this result transmitted ref erence range: 166 - 35 8 10*3/?L. The re ference range was not u sed to interpret this result as normal/abnor mal. MPV (test code = 10.2 fL 9.5-12.9 70717-6) NRBC/100 WBC (test See_Comment [Automat ed message] code = 7025149727) The syste [employer] which generated this result transmitted ref erence range: 0.0 - 10 .0 /100 WBCs. The refer ence range was not u sed to interpret this result as normal/abnor mal. NRBC x10^3 (test <0.01 See_Comment [Automated message] code = 0734334085) The syste m which generated this result transmitted ref erence range: 10*3/?L. The reference range was not used to interpr et this result as normal/abnormal . GRAN MAT (NEUT) % 51.9 % (test code = 770-8) IMM GRAN % (test 0.20 % code = 8951638855) LYMPH % (test code 38.6 % = 736-9) MONO % (test code 6.4 % = 5905-5) EOS % (test code = 2.1 % 713-8) BASO % (test code 0.8 % = 706-2) GRAN MAT 2.66 10*3/uL 1.88-7.09 x10^3(ANC) (test code = 4008462506) IMM GRAN x10^3 <0.03 0.00-0.06 (test code = 2277224361) LYMPH x10^3 (test 1.98 10*3/uL 1.32-3.29 code = 731-0) MONO x10^3 (test 0.33 10*3/uL 0.33-0.92 code = 742-7) EOS x10^3 (test 0.11 10*3/uL 0.03-0.39 code = 711-2) BASO x10^3 (test 0.04 10*3/uL 0.01-0.07 code = 704-7) [facility] [id number] 03:21:35 Test Item Value Reference Interpretation Comments Range TROPONIN I (test 0.002 ng/mL See_Comment [Automated code = 6697496287) message] The system which generated this result transmitted reference range : <=0.034. The reference range was not used to interpret this result as normal/abnormal . LAKESHIA (test code = Reference (Normal) LAKESHIA) Range (defined by the 99th percentile reference limit): <= 0.034 ng/mL Note: Cardiac troponin begins to rise 3-4 hours after the onset of ischemia. Repeat in 4-6 hours if the sample was drawn within 3-4 hours of the onset of the symptom and found normal. Diagnosis of myocardial injury is made with acute changes in cTn concentrations with at least one serial sample above the 99th percentile upper reference limit (URL), taken together with the patient's clinical presentation. Biotin has been reported to cause a negative bias, interpret results relative to patient's use of biotin. Lab Interpretation Normal (test code = 77436-0) [facility] [id number] 01:28:42 Test Item Value Reference Interpretation Comments Range TROPONIN I (test 0.002 ng/mL See_Comment [Automated code = 2899007279) message] The system which generated this result transmitted reference range : <=0.034. The reference range was not used to interpret this result as normal/abnormal . LAKESHIA (test code = Reference (Normal) LAKESHIA) Range (defined by the 99th percentile reference limit): <= 0.034 ng/mL Note: Cardiac troponin begins to rise 3-4 hours after the onset of ischemia. Repeat in 4-6 hours if the sample was drawn within 3-4 hours of the onset of the symptom and found normal. Diagnosis of myocardial injury is made with acute changes in cTn concentrations with at least one serial sample above the 99th percentile upper reference limit (URL), taken together with the patient's clinical presentation. Biotin has been reported to cause a negative bias, interpret results relative to patient's use of biotin. Lab Interpretation Normal (test code = 77026-5) [facility] [id number] 01:25:19 Test Item Value Reference Range Interpretation Comments NT-proBNP (test code 114 pg/mL See_Comment [Autom ated = 6032746570) message] The system which generated this result transmitted reference range : <=125. The reference range was not used to interpret this result as normal/abnormal . LAKESHIA (test code = LAKESHIA) Biotin has been reported to cause a negative bias, interpret results relative to patient's use of biotin. Lab Interpretation Normal (test code = 01519-0) [facility] (59472)2020-10-15 01:16:37 Test Item Value Reference Range Interpretation Comments NA (test code = 135 mmol/L 135-145 9857312627) K (test code = 4.7 mmol/L 3.5-5.0 6498034117) CL (test code = 102 mmol/L 98-108 3055048481) CO2 TOTAL (test code = 26 mmol/L 23-31 2324834477) AGAP (test code = 2-16 4426741912) BUN (test code = 15 mg/dL 7-23 7252529157) GLUCOSE (test code = 171 mg/dL 70-110 H 1978293766) CREATININE (test code = 0.65 mg/dL 0.50-1.04 2161033710) TOTAL BILI (test code = 0.4 mg/dL 0.1-1.1 2134080916) CALCIUM (test code = 9.8 mg/dL 8.6-10.6 9193084569) T PROTEIN (test code = 8.1 g/dL 6.3-8.2 0481435326) ALBUMIN (test code = 4.3 g/dL 3.5-5.0 9193710070) ALK PHOS (test code = 141 U/L 34-122 H 4024137172) ALTv (test code = 36 U/L 5-35 H 2-6) AST(SGOT) (test code = 33 U/L 13-40 5999028704) eGFR (test code = mL/min/1.73m2 7939141928) LAKESHIA (test code = LAKESHIA) Association of Glomerular Filtration Rate (GFR) and Staging of Kidney Disease* + --+ --+ ------+| GFR (mL/min/1.73 m2) ?| With Kidney Damage ?| ?Without Kidney Damage+ --------+ --------+ +| ?>90 ?| ?Stage one ?| ? Normal ?+ ---+ ---+ -------+| ?60-89 ?| ?Stage two ?| ? Decreased GFR ? + --+ --+ ------+| ?30-59 ?| ?Stage three ?| ? Stage three ? + --+ --+ ------+| ?15-29 ?| ?Stage four ? | ? Stage four ?+ ---+ ---+ -------+| ?<15 (or dialysis) ? ?| ?Stage five ? | ? Stage five ?+ ---+ ---+ -------+ *Each stage assumes the associated GFR level has been in effect for at least three months. ?Stages 1 to 5, with or without kidney disease, indicate chronic kidney disease. Notes: Determination of stages one and two (with eGFR >59mL/min/1.73 m2) requires estimation of kidney damage for at least three months as defined by structural or functional abnormalities of the kidney, manifested by either:Pathological abnormalities or Markers of kidney damage (including abnormalities in the composition of the blood or urine or abnormalities in imaging tests). Lab Interpretation Abnormal (test code = 09895-9) [facility]LIP[facility], [id number] 01:16:37 Test Item Value Reference Range Interpretation Comments LIPASE (test code = 0992970962) 192 U/L 0-220 Lab Interpretation (test code = Normal 00444-5) [facility] WITH [id number] 01:02:37 Test Item Value Reference Range Interpretation Comments WBC (test code = See_Comment [Automated message] 9290-2) The system [employer] generated this result transmitted ref erence range: 4.30 - 1 1.10 10*3/?L. The re ference range was not u sed to interpret this result as normal/abnor mal. RBC (test code = See_Comment [Automated message] 409-8) The system [employer] generated this result transmitted ref erence range: 3.93 - 5 .25 10*6/?L. The re ference range was not u sed to interpret this result as normal/abnor mal. HGB (test code = 13.2 g/dL 11.6-15.0 718-7) HCT (test code = 40.2 % 35.7-45.2 4544-3) MCV (test code = 82.2 fL 80.6-95.5 787-2) MCH (test code = 27.0 pg 25.9-32.8 785-6) MCHC (test code = 32.8 g/dL 31.6-35.1 786-4) RDW-SD (test code 45.2 fL 39.0-49.9 = 82162-4) RDW-CV (test code 15.2 % 12.0-15.5 = 788-0) PLT (test code = See_Comment [Automated message] 477-3) The system [employer] generated this result transmitted ref erence range: 166 - 35 8 10*3/?L. The re ference range was not u sed to interpret this result as normal/abnor mal. MPV (test code = 9.9 fL 9.5-12.9 75182-5) NRBC/100 WBC (test See_Comment [Automat ed message] code = 6430362360) The syste m which generated this result transmitted ref erence range: 0.0 - 10 .0 /100 WBCs. The refer ence range was not u sed to interpret this result as normal/abnor mal. NRBC x10^3 (test <0.01 See_Comment [Automated message] code = 1314672857) The syste m which generated this result transmitted ref erence range: 10*3/?L. The reference range was not used to interpr et this result as normal/abnormal . GRAN MAT (NEUT) % 59.0 % (test code = 770-8) IMM GRAN % (test 0.30 % code = 2843153991) LYMPH % (test code 31.4 % = 736-9) MONO % (test code 6.6 % = 5905-5) EOS % (test code = 2.2 % 713-8) BASO % (test code 0.5 % = 706-2) GRAN MAT 3.73 10*3/uL 1.88-7.09 x10^3(ANC) (test code = 5660532116) IMM GRAN x10^3 <0.03 0.00-0.06 (test code = 6919150547) LYMPH x10^3 (test 1.99 10*3/uL 1.32-3.29 code = 731-0) MONO x10^3 (test 0.42 10*3/uL 0.33-0.92 code = 742-7) EOS x10^3 (test 0.14 10*3/uL 0.03-0.39 code = 711-2) BASO x10^3 (test 0.03 10*3/uL 0.01-0.07 code = 704-7) [facility] GLUCOSE (AUTOMATED)2020-07-27 21:41:45 Test Item Value Reference Range Interpretation Comments POCT GLU (test code = 189 mg/dL 70-110 H Notifi ed Provider 0702578332) Lab Interpretation (test Abnormal code = 72771-3) [facility] GLUCOSE (AUTOMATED)2020-07-27 18:58:32 Test Item Value Reference Range Interpretation Comments POCT GLU (test code = 176 mg/dL 70-110 H Notifi ed Provider 7292989660) Lab Interpretation (test Abnormal code = 60964-1) [facility]2020-07-27 14:52:56 Test Item Value Reference Range Interpretation Comments POCT GLU (test code = 6454755601) 171 mg/dL 70-110 H Lab Interpretation (test code = Abnormal 42962-9) [facility]2021-[facility]-08 13:31:40 Test Item Value Reference Range Interpretation Comments MAGNESIUM (test code = 6426062105) 2.2 mg/dL 1.7-2.4 Lab Interpretation (test code = Normal 02007-2) [facility] Metabolic Panel (NA, K, CL, CO2, GLUCOSE, BUN, CREATININE, CA)2020-07-27 10:04:22 Test Item Value Reference Range Interpretation Comments NA (test code = 134 mmol/L 135-145 L 9554352324) K (test code = 3.7 mmol/L 3.5-5.0 9798006460) CL (test code = 96 mmol/L 98-108 L 0470914484) CO2 TOTAL (test code = 30 mmol/L 23-31 8171885767) AGAP (test code = 2-16 4043021081) BUN (test code = 20 mg/dL 7-23 3606220487) GLUCOSE (test code = 151 mg/dL 70-110 H 2067384672) CREATININE (test code = 0.79 mg/dL 0.50-1.04 6712911772) CALCIUM (test code = 8.9 mg/dL 8.6-10.6 8675166907) eGFR (test code = mL/min/1.73m2 9710634872) LAKESHIA (test code = LAKESHIA) Association of Glomerular Filtration Rate (GFR) and Staging of Kidney Disease* + --+ --+ ------+| GFR (mL/min/1.73 m2) ?| With Kidney Damage ?| ?Without Kidney Damage+ --------+ --------+ +| ?>90 ?| ?Stage one ?| ? Normal ?+ ---+ ---+ -------+| ?60-89 ?| ?Stage two ?| ? Decreased GFR ? + --+ --+ ------+| ?30-59 ?| ?Stage three ?| ? Stage three ? + --+ --+ ------+| ?15-29 ?| ?Stage four ? | ? Stage four ?+ ---+ ---+ -------+| ?<15 (or dialysis) ? ?| ?Stage five ? | ? Stage five ?+ ---+ ---+ -------+ *Each stage assumes the associated GFR level has been in effect for at least three months. ?Stages 1 to 5, with or without kidney disease, indicate chronic kidney disease. Notes: Determination of stages one and two (with eGFR >59mL/min/1.73 m2) requires estimation of kidney damage for at least three months as defined by structural or functional abnormalities of the kidney, manifested by either:Pathological abnormalities or Markers of kidney damage (including abnormalities in the composition of the blood or urine or abnormalities in imaging tests). Lab Interpretation Abnormal (test code = 60482-0) [facility] with [id number] 09:31:01 Test Item Value Reference Range Interpretation Comments WBC (test code = See_Comment [Automated message] 6690-2) The system [employer] generated this result transmitted ref erence range: 4.30 - 1 1.10 10*3/?L. The re ference range was not u sed to interpret this result as normal/abnor mal. RBC (test code = See_Comment [Automated message] 789-8) The system [employer] generated this result transmitted ref erence range: 3.93 - 5 .25 10*6/?L. The re ference range was not u sed to interpret this result as normal/abnor mal. HGB (test code = 12.6 g/dL 11.6-15.0 718-7) HCT (test code = 38.6 % 35.7-45.2 4544-3) MCV (test code = 83.4 fL 80.6-95.5 787-2) MCH (test code = 27.2 pg 25.9-32.8 785-6) MCHC (test code = 32.6 g/dL 31.6-35.1 786-4) RDW-SD (test code 40.1 fL 39.0-49.9 = 08802-9) RDW-CV (test code 13.3 % 12.0-15.5 = 788-0) PLT (test code = See_Comment [Automated message] 777-3) The system whic h generated this result transmitted ref erence range: 166 - 35 8 10*3/?L. The re ference range was not u sed to interpret this result as normal/abnor mal. MPV (test code = 9.7 fL 9.5-12.9 59635-9) NRBC/100 WBC (test See_Comment [Automat ed message] code = 6465161262) The syste m which generated this result transmitted ref erence range: 0.0 - 10 .0 /100 WBCs. The refer ence range was not u sed to interpret this result as normal/abnor mal. NRBC x10^3 (test <0.01 See_Comment [Automated message] code = 4598832376) The syste m which generated this result transmitted ref erence range: 10*3/?L. The reference range was not used to interpr et this result as normal/abnormal . GRAN MAT (NEUT) % 47.6 % (test code = 770-8) IMM GRAN % (test 0.30 % code = 5784419978) LYMPH % (test code 39.8 % = 736-9) MONO % (test code 6.0 % = 5905-5) EOS % (test code = 5.7 % 713-8) BASO % (test code 0.6 % = 706-2) GRAN MAT 3.07 10*3/uL 1.88-7.09 x10^3(ANC) (test code = 8123761059) IMM GRAN x10^3 <0.03 0.00-0.06 (test code = 3254862626) LYMPH x10^3 (test 2.57 10*3/uL 1.32-3.29 code = 731-0) MONO x10^3 (test 0.39 10*3/uL 0.33-0.92 code = 742-7) EOS x10^3 (test 0.37 10*3/uL 0.03-0.39 code = 711-2) BASO x10^3 (test 0.04 10*3/uL 0.01-0.07 code = 704-7) [facility] GLUCOSE (AUTOMATED)2020-07-27 02:41:42 Test Item Value Reference Range Interpretation Comments POCT GLU (test code = 0472967336) 174 mg/dL 70-110 H Lab Interpretation (test code = Abnormal 43400-8) [facility] GLUCOSE (AUTOMATED)2020-07-26 22:35:06 Test Item Value Reference Range Interpretation Comments POCT GLU (test code = 8992803473) 130 mg/dL 70-110 H Lab Interpretation (test code = Abnormal 92099-8) [facility] GLUCOSE (AUTOMATED)2020-07-26 17:16:21 Test Item Value Reference Range Interpretation Comments POCT GLU (test code = 0673824119) 195 mg/dL 70-110 H Lab Interpretation (test code = Abnormal 95541-2) [facility] 14:37:29 Test Item Value Reference Range Interpretation Comments MAGNESIUM (test code = 1093898969) 1.4 mg/dL 1.7-2.4 L Lab Interpretation (test code = Abnormal 21991-3) [facility] 2 [id number] 14:02:02 No acute cardiopulmonary process. Preliminary Report Dictated by Resident: Vern Orozco MD., have reviewed this study and agree with the abovereport.EXAM: XR CHEST 2 VW COMPARISON: 04/05/2020 HISTORY: chest pain FINDINGS: Lungs: The lungs are clear. No pleural effusion or pneumothorax betty dentified. Heart/Mediastinum: The cardiomediastinal silhouette is normal in size. Bones: No acute osseous abnormality is seen. [facility], Radiant Results Inft User - 07/26/2020 9:03 AM CDTEXAM: XR CHEST 2 VWCOMPARISON: 04/05/2020HISTORY: chest pain FINDINGS:Lungs: The lungs are clear. No pleural effusion or pneumothorax isidentified.Heart/Mediastinum: The cardiomediastinal silhouette is normal in size.Bones: No acute osseous abnormality is seen.IMPRESSIONNo acute cardiopulmonary process.Preliminary ReportDictated by Resident: Vern Dong MD., have reviewed this study and agree with the abovereport. [facility]2020-07-26 13:00:53 Test Item Value Reference Range Interpretation Comments POCT GLU (test code = 3022147853) 176 mg/dL 70-110 H Lab Interpretation (test code = Abnormal 12843-2) [facility] [id number] 09:17:12 Test Item Value Reference Range Interpretation Comments TROPONIN I (test 0.002 ng/mL See_Comment [Automated code = 0680163717) message] The system which generated this result transmitted reference range : <=0.034. The reference range was not used to interpret this result as normal/abnormal . LAKESHIA (test code = Equal or Less than LAKESHIA) 0.034 ng/ml---Normal ?Note: Cardiac troponin begins to rise 3-4 hours after the onset of ischemia. Repeat in 4-6 hours if the sample was drawn within 3-4 hours of the onset of the symptom and found normal. Between 0.035 and 0.120 ng/mL--- Borderline. Questionable myocardial injury or necrosis ? ?Note: Serial measurement may be necessary to confirm or exclude the diagnosis of myocardial injury or necrosis; Clinical correlation (symptoms, EKGs, imaging studies, and others) required; Repeat in 4-6 hours if clinically indicated. ? Equal or Higher than 0.121 ng/mL---Abnormal. Myocardial Injury or Necrosis Likely ? Biotin has been reported to cause a negative bias, interpret results relative to patient's use of biotin. ? Lab Interpretation Normal (test code = 30338-4) [facility] CenterLIPID PANEL (13899)(TOTAL CHOLESTEROL, TRIGLYCERIDES, HDL)2020-07-26 09:12:35 Test Item Value Reference Range Interpretation Comments CHOL (test code = 226 mg/dL 120-200 H 1508195786) HDL (test code = 36 mg/dL >50 L 5806282206) HDLC RATIO (test code = See_Comment H [Au tomated message] 3389517034) The system [employer] generated this result transmit kenroy reference range : <=4.5. The refe rence range was not u sed to interpret th is result as normal/abnormal . TRIG (test code = 194 mg/dL 30-170 H 3782316030) LDL CHOL (test code = 151 mg/dL See_Comment [Auto mated message] 62350-3) The system [employer] generated this result transmit kenroy reference range : <=160. The refe rence range was not u sed to interpret th is result as normal/abnormal . VLDL (test code = 39 mg/dL 5-60 9515105027) Lab Interpretation (test Abnormal code = 28402-1) [facility] CenterTHYROID STIMULATING [id number] 07:29:55 Test Item Value Reference Range Interpretation Comments TSH (test code = See_Comment Biotin has been 3914688936) reported to cau se a negative bias, interpret resul ts relative to pat cindy's use of biotin. [Automated mess age] The system [employer] generated this result transmitted ref erence range: 0.45 - 4 .70 mIU/L. The refe rence range was not u sed to interpret this result as normal/abnor mal. Lab Interpretation (test Normal code = 55172-4) [facility] CenterGlycosylated Hemoglobin (A1C)2020-07-26 07:27:09 Test Item Value Reference Range Interpretation Comments HGB A1C (test code = 8.7 % 4.0-5.7 H 4548-4) LAKESHIA (test code = LAKESHIA) Reference RangesNormal: <5.7%Prediabetes: 5.7 - 6.4%Diabetes: > 6.5% Lab Interpretation (test Abnormal code = 73930-0) [facility] CenterPROTHROMBIN TIME / [id number] 06:57:08 Test Item Value Reference Range Interpretation Comments PROTIME PATIENT (test See_Comment [Auto mated message] code = 5964-2) The system [employer] generated this result transmitted ref erence range: 10.1 - 1 2.6 Seconds. The re ference range was not u sed to interpret this result as normal/abnor mal. INR (test code = 6301-6) Nor mal INR <1.1; Warfarin Therap eutic range 2.0 to 3. 0 or 2.5 to 3.5, dep ending upon the indica tions. Lab Interpretation (test Normal code = 86003-1) [facility] CenterD-[id number] 06:57:08 Test Item Value Reference Interpretation Comments Range D-DIMER (test code = See_Comment H [Autom ated 2877542668) message] The system which generated this result transmitted reference range : <0.50 ?g/mL (FEU). The reference range was not used to interpret this result as normal/abnormal . LAKESHIA (test code = This test may be LAKESHIA) used in conjunction with a clinical pretest probability (PTP) assessment model to exclude venous thromboembolism (VTE) in patients suspected of deep venous thrombosis (DVT) and pulmonary embolism (PE) A D-Dimer value less than 0.50 ?g/ml (FEU) has a negative predicative value of [...] the clinical context, in forming a diagnosis. Lab Interpretation Abnormal (test code = 81096-0) [facility] [id number] 05:55:15 Test Item Value Reference Range Interpretation Comments AMPHET (test code = Negative Negative 1468036831) Cocaine Metabolite (test Negative Negative code = 8487974302) OPIATES (test code = Negative Negative 9986067204) THC (test code = Presumptive Positive Negative A 5664667933) LAKESHIA (test code = LAKESHIA) Urine Drug Cutoff Ranges Amphetamine: ? 1,000 ng/mLCocaine: ? 150 ng/mLOpiates: ? 300 ng/mLCannabinoids: ?50 ng/mL The results are to be used only for medical (i.e., treatment) purposes. Unconfirmed screening results must not be used for non-medical purposes (e.g., employment testing, legal testing). Lab Interpretation (test Abnormal code = 05477-9) [facility] Center[facility]inalysis2021-[facility]-07 04:46:49 Test Item Value Reference Range Interpretation Comments APPEARANCE (test code = Hazy Clear A 2185894492) COLOR (test code = Yellow Yellow 5646834014) PH (test code = 4.8-8.0 8512337334) SP GRAVITY (test code = 1.003-1.030 0966242797) GLU U QUAL (test code = Normal Normal 7117681347) BLOOD (test code = 3+ Negative A 0804406859) KETONES (test code = Negative Negative 6710310908) PROTEIN (test code = 30 mg/dL Negative A 2887-8) UROBILIN (test code = Normal Normal 4162184128) BILIRUBIN (test code = Negative Negative 4072729361) NITRITE (test code = Negative Negative 5321814968) LEUK CORNELL (test code = Negative Negative 6421606382) RBC/HPF (test code = See_Comment [Autom ated message] 7777597542) The system [employer] generated this result transmitted ref erence range: 0 - 3 HP F. The reference range was not used to int erpret this result as normal/abnormal . WBC/HPF (test code = See_Comment [Autom ated message] 9413034766) The system [employer] generated this result transmitted ref erence range: 0 - 5 HP F. The reference range was not used to int erpret this result as normal/abnormal . BACTERIA (test code = Few Negative A 6051161177) MUCOUS (test code = Slight Negative LPF A 9301895435) SQ EPITH (test code = See_Comment H [Auto mated message] 4061452152) The system [employer] generated this result transmitted ref erence range: <=2 HPF. The reference range was not used to int erpret this result as normal/abnormal . ASCORBIC ACID (test code Negative = 8975673909) Lab Interpretation (test Abnormal code = 89530-0) [facility] ([facility] NOW RAPID TESTING)2020-07-26 03:17:11 Test Item Value Reference Range Interpretation Comments SARS-CoV-2 Rapid ID NOW Not Detected Not Detected (test code = 17280-1) LAKESHIA (test code = LAKESHIA) ID NOW COVID-19 Assay is an isothermal nucleic acid amplification test intended for the qualitative detection of nucleic acid from SARS-CoV-2 viral RNA in nasopharyngeal (VISITOR SERVICES TECHNICIAN) specimens. It is used under Emergency Use Authorization (EUA) by FDA. The limit of detection (LOD) of the assay is 125 Genome Equivalents/mL. A positive result is indicative of the presence of SARS-CoV-2 RNA. ?Clinical correlation with patient history and other diagnostic [...] for repeat patient testing if clinically indicated. Lab Interpretation Normal (test code = 98624-0) [facility] CenterTROPONIN [id number] 01:57:18 Test Item Value Reference Range Interpretation Comments TROPONIN I (test 0.001 ng/mL See_Comment [Automated code = 3023107976) message] The system which generated this result transmitted reference range : <=0.034. The reference range was not used to interpret this result as normal/abnormal . LAKESHIA (test code = Equal or Less than LAKESHIA) 0.034 ng/ml---Normal ?Note: Cardiac troponin begins to rise 3-4 hours after the onset of ischemia. Repeat in 4-6 hours if the sample was drawn within 3-4 hours of the onset of the symptom and found normal. Between 0.035 and 0.120 ng/mL--- Borderline. Questionable myocardial injury or necrosis ? ?Note: Serial measurement may be necessary to confirm or exclude the diagnosis of myocardial injury or necrosis; Clinical correlation (symptoms, EKGs, imaging studies, and others) required; Repeat in 4-6 hours if clinically indicated. ? Equal or Higher than 0.121 ng/mL---Abnormal. Myocardial Injury or Necrosis Likely ? Biotin has been reported to cause a negative bias, interpret results relative to patient's use of biotin. ? Lab Interpretation Normal (test code = 90938-4) [facility] CenterN-TERMINAL [id number] 01:57:18 Test Item Value Reference Range Interpretation Comments NT-proBNP (test code 294 pg/mL See_Comment H [Autom ated = 7509020362) message] The system which generated this result transmitted reference range : <=125. The reference range was not used to interpret this result as normal/abnormal . LAKESHIA (test code = LAKESHIA) Biotin has been reported to cause a negative bias, interpret results relative to patient's use of biotin. Lab Interpretation Abnormal (test code = 19952-5) [facility]. METABOLIC PANEL (82781)2020-07-26 01:44:18 Test Item Value Reference Range Interpretation Comments NA (test code = 136 mmol/L 135-145 6655312366) K (test code = 4.9 mmol/L 3.5-5.0 5967578396) CL (test code = 99 mmol/L 98-108 6285832400) CO2 TOTAL (test code = 30 mmol/L 23-31 0175980379) AGAP (test code = 2-16 2451868152) BUN (test code = 13 mg/dL 7-23 2253309408) GLUCOSE (test code = 150 mg/dL 70-110 H 7321915316) CREATININE (test code = 0.68 mg/dL 0.50-1.04 9926729705) TOTAL BILI (test code = 0.4 mg/dL 0.1-1.4 1118163710) CALCIUM (test code = 10.3 mg/dL 8.6-10.6 5973540133) T PROTEIN (test code = 7.2 g/dL 6.3-8.2 9898553376) ALBUMIN (test code = 4.1 g/dL 3.5-5.0 2398952698) ALK PHOS (test code = 128 U/L 34-122 H 7075905025) ALTv (test code = 30 U/L 5-35 1742-6) AST(SGOT) (test code = 26 U/L 13-40 6091267927) eGFR (test code = mL/min/1.73m2 9767683080) LAKESHIA (test code = LAKESHIA) Association of Glomerular Filtration Rate (GFR) and Staging of Kidney Disease* + --+ --+ ------+| GFR (mL/min/1.73 m2) ?| With Kidney Damage ?| ?Without Kidney Damage+ --------+ --------+ +| ?>90 ?| ?Stage one ?| ? Normal ?+ ---+ ---+ -------+| ?60-89 ?| ?Stage two ?| ? Decreased GFR ? + --+ --+ ------+| ?30-59 ?| ?Stage three ?| ? Stage three ? + --+ --+ ------+| ?15-29 ?| ?Stage four ? | ? Stage four ?+ ---+ ---+ -------+| ?<15 (or dialysis) ? ?| ?Stage five ? | ? Stage five ?+ ---+ ---+ -------+ *Each stage assumes the associated GFR level has been in effect for at least three months. ?Stages 1 to 5, with or without kidney disease, indicate chronic kidney disease. Notes: Determination of stages one and two (with eGFR >59mL/min/1.73 m2) requires estimation of kidney damage for at least three months as defined by structural or functional abnormalities of the kidney, manifested by either:Pathological abnormalities or Markers of kidney damage (including abnormalities in the composition of the blood or urine or abnormalities in imaging tests). Lab Interpretation Abnormal (test code = 59979-2) [facility] CenterLipase [id number] 01:44:18 Test Item Value Reference Range Interpretation Comments LIPASE (test code = 0140176578) 91 U/L 0-220 Lab Interpretation (test code = Normal 33475-2) [facility] CenterCBC WITH [id number] 01:31:54 Test Item Value Reference Range Interpretation Comments WBC (test code = See_Comment [Automated message] 6690-2) The system [employer] generated this result transmitted ref erence range: 4.30 - 1 1.10 10*3/?L. The re ference range was not u sed to interpret this result as normal/abnor mal. RBC (test code = See_Comment [Automated message] 789-8) The system [employer] generated this result transmitted ref erence range: 3.93 - 5 .25 10*6/?L. The re ference range was not u sed to interpret this result as normal/abnor mal. HGB (test code = 12.9 g/dL 11.6-15.0 718-7) HCT (test code = 40.1 % 35.7-45.2 4544-3) MCV (test code = 83.7 fL 80.6-95.5 787-2) MCH (test code = 26.9 pg 25.9-32.8 785-6) MCHC (test code = 32.2 g/dL 31.6-35.1 786-4) RDW-SD (test code 40.5 fL 39.0-49.9 = 63265-6) RDW-CV (test code 13.3 % 12.0-15.5 = 788-0) PLT (test code = See_Comment [Automated message] 777-3) The system whic h generated this result transmitted ref erence range: 166 - 35 8 10*3/?L. The re ference range was not u sed to interpret this result as normal/abnor mal. MPV (test code = 9.9 fL 9.5-12.9 67748-1) NRBC/100 WBC (test See_Comment [Automat ed message] code = 3233078917) The syste m which generated this result transmitted ref erence range: 0.0 - 10 .0 /100 WBCs. The refer ence range was not u sed to interpret this result as normal/abnor mal. NRBC x10^3 (test <0.01 See_Comment [Automated message] code = 8017780419) The syste m which generated this result transmitted ref erence range: 10*3/?L. The reference range was not used to interpr et this result as normal/abnormal . GRAN MAT (NEUT) % 52.1 % (test code = 770-8) IMM GRAN % (test 0.30 % code = 3831867108) LYMPH % (test code 36.5 % = 736-9) MONO % (test code 5.5 % = 5905-5) EOS % (test code = 5.0 % 713-8) BASO % (test code 0.6 % = 706-2) GRAN MAT 3.53 10*3/uL 1.88-7.09 x10^3(ANC) (test code = 4149157759) IMM GRAN x10^3 <0.03 0.00-0.06 (test code = 8969120266) LYMPH x10^3 (test 2.47 10*3/uL 1.32-3.29 code = 731-0) MONO x10^3 (test 0.37 10*3/uL 0.33-0.92 code = 742-7) EOS x10^3 (test 0.34 10*3/uL 0.03-0.39 code = 711-2) BASO x10^3 (test 0.04 10*3/uL 0.01-0.07 code = 704-7) [facility] CenterPOCT [id number] 01:23:00 Test Item Value Reference Range Interpretation Comments POCT PREG (test code = 1605) Negative On board controls acceptable with Yes C Line (test code = 3574) POCT PREG LOT # (test code = 3575) [id number] POCT PREG TEST DATE (test 02-18-2022 code = 3576) Lab Interpretation (test code = Normal 38170-0) [facility] CenterGLUBED2021-03-15 16:31:00 Test Item Value Reference Range Interpretation Comments GLUBED (test code = GLUBED) 211 mg/dL 70-110 H [id number] 11:39:00 Test Item Value Reference Range Interpretation Comments GLUBED (test code = GLUBED) 265 mg/dL 70-110 H [id number] 07:45:00 Test Item Value Reference Range Interpretation Comments GLUBED (test code = GLUBED) 214 mg/dL 70-110 H BASIC METABOLIC [id number] 03:50:00 Test Item Value Reference Range Interpretation Comments SODIUM (test code = NA) 131 mmol/l 134.0-147.0 L POTASSIUM (test code = K) 3.7 mmol/L 3.6-5.2 N CHLORIDE (test code = CL) 95 mmol/l 98.0-107.0 L CARBON DIOXIDE (test code = CO2) 28.7 mmol/l 21.0-33.0 N ANION GAP (test code = GAP) 11.0 0-20 N GLUCOSE (test code = GLU) 265 mg/dl 70.0-110.0 H BLOOD UREA NITROGEN (test code = 15 mg/dl 7.0-18.0 N BUN) CREATININE (test code = CREAT) 0.94 mg/dL 0.60-1.30 N GFR NON BLACK (test code = 70 mL/min 95-105 L GFRNONBLACK) GFR BLACK (test code = GFRBLACK) 84 mL/min 115-127 L CALCIUM (test code = CA) 9.3 mg/dl 8.0-10.5 N CBC W/AUTO [id number] 03:40:00 Test Item Value Reference Range Interpretation Comments WHITE BLOOD CELL (test code = 7.1 K/mm3 4.5-11.0 N WBC) RED BLOOD CELL (test code = 4.10 M/mm3 3.80-5.20 N RBC) HEMOGLOBIN (test code = HGB) 11.8 gm/dL 12.0-16.0 L HEMATOCRIT (test code = HCT) 36.6 % 36.0-48.0 N MEAN CELL VOLUME (test code = 89.3 UM3 82.0-99.0 N MCV) MEAN CELL HGB (test code = MCH) 28.8 UUG 25.5-32.5 N MEAN CELL HGB CONCETRATION 32.2 gm/dL 29.0-35.5 N (test code = MCHC) RED CELL DISTRIBUTION WIDTH 13.2 % 11.5-15.0 N (test code = RDW) RED CELL DISTRIBUTION WIDTH SD 42.6 fL 34.8-50.2 N (test code = RDW-SD) PLATELET COUNT (test code = 238 K/mm3 150-400 N PLT) MEAN PLATELET VOLUME (test code 9.8 fl 7.4-10.4 N = MPV) NEUTROPHIL % (test code = NT%) 53.1 % 49.0-76.0 N IMMATURE GRANULOCYTE % (test 0.4 % 0.0-0.4 N code = IG%) LYMPHOCYTE % (test code = LY%) 35.2 % 23.0-38.0 N MONOCYTE % (test code = MO%) 5.5 % 1.0-10.0 N EOSINOPHIL % (test code = EO%) 5.1 % 1.0-5.0 H BASOPHIL % (test code = BA%) 0.7 % 0.0-1.0 N NUCLEATED RBC % (test code = 0.0 % 0.0-0.1 N NRBC%) NEUTROPHIL # (test code = NT#) 3.8 K/mm3 2.4-6.3 N IMMATURE GRANULOCYTE # (test 0.03 x10 3/uL 0.00-0.07 N code = IG#) LYMPHOCYTE # (test code = LY#) 2.5 K/mm3 1.2-4.0 N MONOCYTE # (test code = MO#) 0.4 K/mm3 0.0-0.6 N EOSINOPHIL # (test code = EO#) 0.4 K/MM3 0.0-0.7 N BASOPHIL # (test code = BA#) 0.1 K/mm3 0.0-0.2 N NUCLEATED RBC # (test code = 0.00 X10 3uL 0.00-0.01 N NRBC#) [id number] 20:07:00 Test Item Value Reference Range Interpretation Comments GLUBED (test code = GLUBED) 207 mg/dL 70-110 H [id number] 16:05:00 Test Item Value Reference Range Interpretation Comments GLUBED (test code = GLUBED) 279 mg/dL 70-110 H [id number] 11:47:00 Test Item Value Reference Range Interpretation Comments GLUBED (test code = GLUBED) 256 mg/dL 70-110 H [id number] 08:30:00 Test Item Value Reference Range Interpretation Comments GLUBED (test code = GLUBED) 213 mg/dL 70-110 H BASIC METABOLIC [id number] 08:24:00 Test Item Value Reference Range Interpretation Comments SODIUM (test code = NA) 132 mmol/l 134.0-147.0 L POTASSIUM (test code = K) 3.4 mmol/L 3.6-5.2 L CHLORIDE (test code = CL) 97 mmol/l 98.0-107.0 L CARBON DIOXIDE (test code = CO2) 28.9 mmol/l 21.0-33.0 N ANION GAP (test code = GAP) 9.5 0-20 N GLUCOSE (test code = GLU) 178 mg/dl 70.0-110.0 H BLOOD UREA NITROGEN (test code = 14 mg/dl 7.0-18.0 N BUN) CREATININE (test code = CREAT) 0.78 mg/dL 0.60-1.30 N GFR NON BLACK (test code = 87 mL/min 95-105 L GFRNONBLACK) GFR BLACK (test code = GFRBLACK) 105 mL/min 115-127 L CALCIUM (test code = CA) 8.3 mg/dl 8.0-10.5 N [id number] 08:24:00 Test Item Value Reference Range Interpretation Comments MAGNESIUM (test code = MAG) 1.9 mg/dl 1.8-2.4 N [id number] 07:46:00 Test Item Value Reference Range Interpretation Comments GLUBED (test code = GLUBED) 172 mg/dL 70-110 H [id number] 20:12:00 Test Item Value Reference Range Interpretation Comments GLUBED (test code = GLUBED) 241 mg/dL 70-110 H [id number] 15:05:00 Test Item Value Reference Range Interpretation Comments GLUBED (test code = GLUBED) 196 mg/dL 70-110 H [id number] 14:39:00 Test Item Value Reference Range Interpretation Comments GLUBED (test code = GLUBED) 234 mg/dL 70-110 H [id number] 07:43:00 Test Item Value Reference Range Interpretation Comments MAGNESIUM (test code = MAG) 1.8 mg/dl 1.8-2.4 N BASIC METABOLIC [id number] 07:42:00 Test Item Value Reference Range Interpretation Comments SODIUM (test code = NA) 132 mmol/l 134.0-147.0 L POTASSIUM (test code = K) 3.4 mmol/L 3.6-5.2 L CHLORIDE (test code = CL) 97 mmol/l 98.0-107.0 L CARBON DIOXIDE (test code = CO2) 30.1 mmol/l 21.0-33.0 N ANION GAP (test code = GAP) 8.3 0-20 N GLUCOSE (test code = GLU) 205 mg/dl 70.0-110.0 H BLOOD UREA NITROGEN (test code = 11 mg/dl 7.0-18.0 N BUN) CREATININE (test code = CREAT) 0.76 mg/dL 0.60-1.30 N GFR NON BLACK (test code = 89 mL/min 95-105 L GFRNONBLACK) GFR BLACK (test code = GFRBLACK) 108 mL/min 115-127 L CALCIUM (test code = CA) 8.5 mg/dl 8.0-10.5 N CBC W/AUTO [id number] 07:28:00 Test Item Value Reference Range Interpretation Comments WHITE BLOOD CELL (test code = 6.2 K/mm3 4.5-11.0 N WBC) RED BLOOD CELL (test code = 3.95 M/mm3 3.80-5.20 N RBC) HEMOGLOBIN (test code = HGB) 11.1 gm/dL 12.0-16.0 L HEMATOCRIT (test code = HCT) 34.3 % 36.0-48.0 L MEAN CELL VOLUME (test code = 86.8 UM3 82.0-99.0 N MCV) MEAN CELL HGB (test code = MCH) 28.1 UUG 25.5-32.5 N MEAN CELL HGB CONCETRATION 32.4 gm/dL 29.0-35.5 N (test code = MCHC) RED CELL DISTRIBUTION WIDTH 13.4 % 11.5-15.0 N (test code = RDW) RED CELL DISTRIBUTION WIDTH SD 41.9 fL 34.8-50.2 N (test code = RDW-SD) PLATELET COUNT (test code = 210 K/mm3 150-400 N PLT) MEAN PLATELET VOLUME (test code 9.9 fl 7.4-10.4 N = MPV) NEUTROPHIL % (test code = NT%) 60.9 % 49.0-76.0 N IMMATURE GRANULOCYTE % (test 0.6 % 0.0-0.4 H code = IG%) LYMPHOCYTE % (test code = LY%) 27.2 % 23.0-38.0 N MONOCYTE % (test code = MO%) 6.1 % 1.0-10.0 N EOSINOPHIL % (test code = EO%) 4.7 % 1.0-5.0 N BASOPHIL % (test code = BA%) 0.5 % 0.0-1.0 N NUCLEATED RBC % (test code = 0.0 % 0.0-0.1 N NRBC%) NEUTROPHIL # (test code = NT#) 3.8 K/mm3 2.4-6.3 N IMMATURE GRANULOCYTE # (test 0.04 x10 3/uL 0.00-0.07 N code = IG#) LYMPHOCYTE # (test code = LY#) 1.7 K/mm3 1.2-4.0 N MONOCYTE # (test code = MO#) 0.4 K/mm3 0.0-0.6 N EOSINOPHIL # (test code = EO#) 0.3 K/MM3 0.0-0.7 N BASOPHIL # (test code = BA#) 0.0 K/mm3 0.0-0.2 N NUCLEATED RBC # (test code = 0.00 X10 3uL 0.00-0.01 N NRBC#) [id number] 20:40:00 Test Item Value Reference Range Interpretation Comments GLUBED (test code = GLUBED) 199 mg/dL 70-110 H [id number] 13:57:00 Test Item Value Reference Range Interpretation Comments GLUBED (test code = GLUBED) 194 mg/dL 70-110 H [id number] 13:38:00 Test Item Value Reference Range Interpretation Comments HGBA1C% (test code = HGBA1C%) 8.6 %A1C 4.8-6.0 H ESTIMATED AVERAGE GLUCOSE (test 200 MG/DL code = EAG) BASIC METABOLIC [id number] 11:33:00 Test Item Value Reference Range Interpretation Comments SODIUM (test code = NA) 132 mmol/l 134.0-147.0 L POTASSIUM (test code = K) 4.4 mmol/L 3.6-5.2 N CHLORIDE (test code = CL) 96 mmol/l 98.0-107.0 L CARBON DIOXIDE (test code = CO2) 29.1 mmol/l 21.0-33.0 N ANION GAP (test code = GAP) 11.3 0-20 N GLUCOSE (test code = GLU) 226 mg/dl 70.0-110.0 H BLOOD UREA NITROGEN (test code = 11 mg/dl 7.0-18.0 N BUN) CREATININE (test code = CREAT) 0.55 mg/dL 0.60-1.30 L GFR NON BLACK (test code = 129 mL/min 95-105 H GFRNONBLACK) GFR BLACK (test code = GFRBLACK) 157 mL/min 115-127 H CALCIUM (test code = CA) 8.6 mg/dl 8.0-10.5 N THYROID STIMULATING [id number] 11:33:00 Test Item Value Reference Range Interpretation Comments THYROID STIMULATING 2.48 IU/ML 0.47-5.01 N Result i s in HORMONE (test code = Interna tional TSH) Units/millilite r CARDIAC ENZYMES [id number] 11:33:00 Test Item Value Reference Range Interpretation Comments CREATINE KINASE (CK) 108 Units/L 21-215 N (test code = CK) TROPONIN-I (test code <0.02 NG/ML 0.00-0.06 N REFERE NCE RANGE = TROPI) TROPONIN I HEAL THY INDIVIDUALS: <0 .06 ng/mL R/O ISCHE OSMANI: 0.07 - 0.60 ng/ mL CUT-OFF RANGE F OR AMI: 0.60 - 1.5 ng/mL - CTA CHEST FOR [id number] 01:43:00 [facility]LEG FRYEJerrod RUBIO : 1980 Sex: F FAX: Carl Lawson MD [place]: St: REG Name: LEIGH FRYE [facility] : 1980 Age/S: 40/F [address] [employer] [facility] Unit: [id number] Loc: [address] Phys: [place] [id number] Acct: [id number] Dis Date: Status: REG ER PHONE #: [phone] Exam Date: 05/31/2020 0127 FAX #: [phone] Reason: r/o pe EXAMS: CPT CODE: [id number] [place] [address] HISTORY: Chest pain, evaluate for pulmonary embolus. Location: C3 COMPARISON: None TECHNIQUE: Axial tomograms through the chestwere obtained after intravenous contrast utilizing pulmonary CTA protocol. Multiplanar maximum intensity projection reformatted images are provided. One or more of the following dose reduction techniques were used: Automated exposure control, adjustment of the mA and/or kV according to patient size, and/or utilization of iterative reconstruction technique. FINDINGS: The pulmonary arteries are well opacified with no evidence of pulmonary embolus. There is no evidence of aortic aneurysm or dissection. There is no significant mediastinal or hilar adenopathy. No significant pleural effusion. No acuteosseous abnormalities are demonstrated. Minimal basilar atelectasis. No focal consolidation. IMPRESSION: 1. No evidence of pulmonary embolus. at 0143 Reported and signed by: Ko Friedman M.D. CC: Carl Lawson MD Technologist: MINDA SIMMONS Trndwaynerd Dt/Tm: 05/31/2020 (0143) t.SDR.[email or web address] Orig Print D/T: S: 05/31/2020 (0146 PAGE 1 Signed ReportD-DIMER/[id number] 01:20:00 Test Item Value Reference Range Interpretation Comments D-DIMER/FSP 868 ng/mLFEU 0-500 HH Thrombosis and/ or Pulmonary (test code = Embolism and th e DDIMER) clinicalcut-off value for exclusion (500 ng/mL FEU) of theseconditions is validated by the manufact urer of the method. A negat thomas D-Dimer result when com bined with a clinicalassessm ent of low pretest probabi lity has been shown to havea high negative predictive valu e of DVT or PE. D-Dimer pb ues >500 ng/mL FEU are n ot diagnostic for DVT,PE, or DIC without other confirmat ory tests and appropriateclin ical evaluations. - XR CHEST 1 [id number] 01:01:00 [facility] [place] [facility] : 1980 Sex: F FAX: Carl Lawson MD [place]: St: REG Name: LEIGH FRYE [facility] : 1980 Age/S: 40/F [address] [facility] Unit #: [id number] Loc: [address] Phys: Carl Lawson [place] [id number]: [id number] Dis Date: Status: REG ER PHONE #: [phone] Exam Date: 05/31/202030 FAX #: Reason: SOB EXAMS: CPT CODE: [id number] XR CHEST 1 V 72395 EXAM: - XR CHEST 1 V HISTORY:Shortness of breath. Chest pain. COMPARISON: September 09, 2018. FINDINGS: Single AP view of the chest isprovided. Heart size and vascularity are within normal limits. There is no evidence of a focal consolidation. There is no pleural effusion or pneumothorax. There is no definite acute osseous abnormality . IMPRESSION: No radiographic evidence of acute cardiopulmonary process. at 0101 Reported and signed by: Tanner Vaz M.D. CC: Carl Lawson MD Technologist: JERONIMO LEONARD [facility] Date/Time/By: 05/31/2020 (010) : By: [email or web address] PAGE 1 Signed Report FAX: Carl Lawson MD [place]: St: REG Name: LEIGH FRYE [facility] : 1980 Age/S: 40/F [address] [facility] Unit #: [id number] Loc: [address] Phys: [place] [id number] Acct: [id number] Dis Date: Status: REG ER PHONE #: [phone] Exam Date: 05/31/20201 FAX #: [phone] Reason: SOB EXAMS: CPT CODE: [id number] XR CHEST 1 V 61713 <Continued> Orig Print D/T: S: 05/31/2020 (0104) PAGE 2 Signed ReportBASIC METABOLIC [id number] 00:58:00 Test Item Value Reference Range Interpretation Comments SODIUM (test code = NA) 133 mmol/l 134.0-147.0 L POTASSIUM (test code = K) 3.1 mmol/L 3.6-5.2 L CHLORIDE (test code = CL) 96 mmol/l 98.0-107.0 L CARBON DIOXIDE (test code = CO2) 29.1 mmol/l 21.0-33.0 N ANION GAP (test code = GAP) 11.0 0-20 N GLUCOSE (test code = GLU) 185 mg/dl 70.0-110.0 H BLOOD UREA NITROGEN (test code = 15 mg/dl 7.0-18.0 N BUN) CREATININE (test code = CREAT) 0.82 mg/dL 0.60-1.30 N GFR NON BLACK (test code = 82 mL/min 95-105 L GFRNONBLACK) GFR BLACK (test code = GFRBLACK) 99 mL/min 115-127 L CALCIUM (test code = CA) 9.4 mg/dl 8.0-10.5 N B-TYPE NATRIURETIC [id number] 00:58:00 Test Item Value Reference Range Interpretation Comments B-TYPE NATRIURETIC PEPTIDE (test 36.1 PG/ML 5-100 N code = BNP) [id number] 00:58:00 Test Item Value Reference Range Interpretation Comments TROPONIN-I (test <0.02 NG/ML 0.00-0.06 N REFERENCE R ALEE code = TROPI) TROPONIN I HEA LTHY INDIVIDUALS: <0 .06 ng/mL R/O ISCHE OSMANI: 0.07 - 0.60 ng/ mL CUT-OFF RANGE F OR AMI: 0.60 - 1.5 ng/m L BASIC METABOLIC [id number] 00:57:00 Test Item Value Reference Range Interpretation Comments SODIUM (test code = NA) 133 mmol/l 134.0-147.0 L POTASSIUM (test code = K) 3.1 mmol/L 3.6-5.2 L CHLORIDE (test code = CL) 96 mmol/l 98.0-107.0 L CARBON DIOXIDE (test code = CO2) 29.1 mmol/l 21.0-33.0 N ANION GAP (test code = GAP) 11.0 0-20 N GLUCOSE (test code = GLU) 185 mg/dl 70.0-110.0 H BLOOD UREA NITROGEN (test code = 15 mg/dl 7.0-18.0 N BUN) CREATININE (test code = CREAT) 0.82 mg/dL 0.60-1.30 N GFR NON BLACK (test code = 82 mL/min 95-105 L GFRNONBLACK) GFR BLACK (test code = GFRBLACK) 99 mL/min 115-127 L CALCIUM (test code = CA) 9.4 mg/dl 8.0-10.5 N B-TYPE NATRIURETIC [id number] 00:57:00 Test Item Value Reference Range Interpretation Comments B-TYPE NATRIURETIC PEPTIDE (test code PG/ML 5-100 = BNP) [id number] 00:57:00 Test Item Value Reference Range Interpretation Comments TROPONIN-I (test <0.02 NG/ML 0.00-0.06 N REFERENCE R ALEE code = TROPI) TROPONIN I HEA LTHY INDIVIDUALS: <0 .06 ng/mL R/O ISCHE OSMANI: 0.07 - 0.60 ng/ mL CUT-OFF RANGE F OR AMI: 0.60 - 1.5 ng/m L PROTHROMBIN [id number] 00:55:00 Test Item Value Reference Range Interpretation Comments PROTHROMBIN TIME 12.4 SECONDS 9.9-12.8 N PATIENT (test code = PTP) INTERNATIONAL NORMAL 1.1 0.89-1.14 N THE INR IS TO BE USED RATIO (test code = ONLY FOR MONITORING INR) ORAL ANTICOAGULANTTH ERAPY. THE FOLLOWING A RE SUGGESTED RANGE S FROM [facility] LEGE OF CHEST PHYSICIANS:ELIAZAR CATION INR VALUEPROPHY LAXIS OF VENOUS THROM BOSIS (ORTHOPEDIC THO SUSHILA) 2.0 - 3.0PROPHY LAXIS OF VENOUS THROM BOSIS (OTHER THAN HIG H-RISK SURGERY) 2.0 - 3.0TREATMENT OF DEEP VEIN THROMBOSIS OR PULMONARY EMBOL ISM 2.0 - 3.0PREVENTION OF SYSTEMIC EMBOLI SM TISSUE HEART VA LVES 2.0 - 3.0 ACUTE MYOCARDIAL INFA RCTION (TO PREVENT SYS TEMIC EMBOLISM) 2.0 - 3.0 ACUTE MYOCARDIA L INFARCTION (TO PREVENT RECURRENT INFAR CT) 2.5 - 3.0 VALVULAR HEART DISEASE 2.0 - 3 .0 ATRIAL FIBRILAT ION 2.0 - 3.0BILEAFLET MECHANICAL VALV E IN AORTIC POSITION 2.0 - 3.0MECHANICAL PROSTHETIC VALV ES (HIGH RISK) 2.5 - 3.5PRESENCE OF LUPUS ANTICOAGULANT O R ANTIPHOSPHOLIPI D ANTIBODIES 2.5 - 3.5 Specimen comments: .Is patient on anticoagulants? NTHROMBOPLASTIN TIME PARTIAL 2020-05-31 00:55:00 Test Item Value Reference Range Interpretation Comments THROMBOPLASTIN TIME 33.60 SECONDS 25.86-36.07 N [facility] Lab PARTIAL (test code = Therape uti Range - PTT) APTT of 55.8-85 .4 secondscorrelat es with plasma heparin concentration o f 0.2-0.4 u/mL Ne w range effective - Specimen comments: .Is patient on anticoagulants? NCBC W/AUTO [id number] 00:47:00 Test Item Value Reference Range Interpretation Comments WHITE BLOOD CELL (test code = 7.1 K/mm3 4.5-11.0 N WBC) RED BLOOD CELL (test code = 4.07 M/mm3 3.80-5.20 N RBC) HEMOGLOBIN (test code = HGB) 11.8 gm/dL 12.0-16.0 L HEMATOCRIT (test code = HCT) 35.7 % 36.0-48.0 L MEAN CELL VOLUME (test code = 87.7 UM3 82.0-99.0 N MCV) MEAN CELL HGB (test code = MCH) 29.0 UUG 25.5-32.5 N MEAN CELL HGB CONCETRATION 33.1 gm/dL 29.0-35.5 N (test code = MCHC) RED CELL DISTRIBUTION WIDTH 13.3 % 11.5-15.0 N (test code = RDW) RED CELL DISTRIBUTION WIDTH SD 42.1 fL 34.8-50.2 N (test code = RDW-SD) PLATELET COUNT (test code = 223 K/mm3 150-400 N PLT) MEAN PLATELET VOLUME (test code 9.8 fl 7.4-10.4 N = MPV) NEUTROPHIL % (test code = NT%) 62.1 % 49.0-76.0 N IMMATURE GRANULOCYTE % (test 0.6 % 0.0-0.4 H code = IG%) LYMPHOCYTE % (test code = LY%) 27.2 % 23.0-38.0 N MONOCYTE % (test code = MO%) 6.1 % 1.0-10.0 N EOSINOPHIL % (test code = EO%) 3.3 % 1.0-5.0 N BASOPHIL % (test code = BA%) 0.7 % 0.0-1.0 N NUCLEATED RBC % (test code = 0.0 % 0.0-0.1 N NRBC%) NEUTROPHIL # (test code = NT#) 4.4 K/mm3 2.4-6.3 N IMMATURE GRANULOCYTE # (test 0.04 x10 3/uL 0.00-0.07 N code = IG#) LYMPHOCYTE # (test code = LY#) 1.9 K/mm3 1.2-4.0 N MONOCYTE # (test code = MO#) 0.4 K/mm3 0.0-0.6 N EOSINOPHIL # (test code = EO#) 0.2 K/MM3 0.0-0.7 N BASOPHIL # (test code = BA#) 0.1 K/mm3 0.0-0.2 N NUCLEATED RBC # (test code = 0.00 X10 3uL 0.00-0.01 N NRBC#) POCT GLUCOSE (AUTOMATED)2020-04-09 18:43:00 Test Item Value Reference Range Interpretation Comments POCT GLU (test code = 6938701284) 125 mg/dL 70-110 H Lab Interpretation (test code = Abnormal 40627-9) [facility] [id number] 12:39:00 Test Item Value Reference Range Interpretation Comments CK (test code = 1315066297) 30 U/L 33-194 L Lab Interpretation (test code = Abnormal 20581-4) [facility] CenterCOVID[facility] (ID NOW RAPID TESTING)2020-04-06 03:33:00 Test Item Value Reference Range Interpretation Comments SARS-CoV-2 Rapid ID NOW Not Detected Not Detected (test code = 50922-3) LAKESHIA (test code = LAKESHIA) ID NOW COVID-19 Assay is an isothermal nucleic acid amplification test intended for the qualitative detection of nucleic acid from SARS-CoV-2 viral RNA in nasopharyngeal (VISITOR SERVICES TECHNICIAN) specimens. It is used under Emergency Use Authorization (EUA) by FDA. The limit of detection (LOD) of the assay is 125 Genome Equivalents/mL. A positive result is indicative of the presence of SARS-CoV-2 RNA. ?Clinical correlation with patient history and other diagnostic [...] for repeat patient testing if clinically indicated. Lab Interpretation Normal (test code = 02340-1) [facility] CenterSALICYLATE2021-01-16 02:55:00 Test Item Value Reference Range Interpretation Comments SALICYLATE (test code <10 mg/L = 5008384316) LAKESHIA (test code = LAKESHIA) Therapeutic Range: ? Analgesic and Antipyretic Use ? 20-100 mg/L ? ? Anti-Inflammatory Use ? 100-250 mg/L Toxic Range: ? Greater than 300 mg/L [facility] CenterACETAMINOPHEN2021-01-16 02:53:00 Test Item Value Reference Range Interpretation Comments ACETAMINOP (test code = <10.0 10-30 L 3421875776) LAKESHIA (test code = LAKESHIA) Toxic: Greater than 200 ug/mL @ 4 hour post ingestion or greater than 50 ug/mL @ 12 hour post ingestion Lab Interpretation (test Abnormal code = 13270-4) [facility] CenterURINALYSIS2021-01-16 02:39:00 Test Item Value Reference Range Interpretation Comments APPEARANCE (test code = Hazy Clear A 6057750333) COLOR (test code = Yellow Yellow 4677182219) PH (test code = 4.8-8.0 1782077726) SP GRAVITY (test code = 1.003-1.030 0556751223) GLU U QUAL (test code = Normal Normal 0818290055) BLOOD (test code = Negative Negative 2624986847) KETONES (test code = Negative Negative 5581745710) PROTEIN (test code = Negative Negative 2887-8) UROBILIN (test code = Normal Normal 1782056184) BILIRUBIN (test code = Negative Negative 4775867675) NITRITE (test code = Negative Negative 1648387662) LEUK CORNELL (test code = Negative Negative 8633380723) RBC/HPF (test code = See_Comment [Autom ated message] 0121376841) The system [employer] generated this result transmitted ref erence range: 0 - 3 HP F. The reference range was not used to int erpret this result as normal/abnormal . WBC/HPF (test code = See_Comment [Autom ated message] 0311024403) The system [employer] generated this result transmitted ref erence range: 0 - 5 HP F. The reference range was not used to int erpret this result as normal/abnormal . BACTERIA (test code = Many Negative A 1374547587) MUCOUS (test code = Slight Negative LPF A 5828088297) SQ EPITH (test code = HPF 8569865081) Lab Interpretation (test Abnormal code = 87242-1) [facility] CenterTROPONIN [id number] 02:39:00 Test Item Value Reference Range Interpretation Comments TROPONIN I (test <0.012 See_Comment [Automated code = 3279745531) message] The system which generated this result transmitted reference range : <=0.034 ng/mL. The reference range was not used to interpr et this result as normal/abnormal . LAKESHIA (test code = Equal or Less than LAKESHIA) 0.034 ng/ml---Normal ?Note: Cardiac troponin begins to rise 3-4 hours after the onset of ischemia. Repeat in 4-6 hours if the sample was drawn within 3-4 hours of the onset of the symptom and found normal. Between 0.035 and 0.120 ng/mL--- Borderline. Questionable myocardial injury or necrosis ? ?Note: Serial measurement may be necessary to confirm or exclude the diagnosis of myocardial injury or necrosis; Clinical correlation (symptoms, EKGs, imaging studies, and others) required; Repeat in 4-6 hours if clinically indicated. ? Equal or Higher than 0.121 ng/mL---Abnormal. Myocardial Injury or Necrosis Likely ? Biotin has been reported to cause a negative bias, interpret results relative to patient's use of biotin. ? Lab Interpretation Normal (test code = 91775-1) [facility] CenterETHANOL2021-01-16 02:35:00 Test Item Value Reference Range Interpretation Comments ALCOHOL (test code = <10 mg/dL 1623729933) LAKESHIA (test code = LAKESHIA) <10 Hbhxvyrr70-291 Toxic>100 Depression of REFERRAL COORDINATOR>400 Fatalities Reported [facility] CenterCOMP. METABOLIC PANEL ([id number])2020-04-06 02:30:00 Test Item Value Reference Range Interpretation Comments NA (test code = 136 mmol/L 135-145 2857989299) K (test code = 4.6 mmol/L 3.5-5 4501596720) CL (test code = 102 mmol/L 98-108 1721539702) CO2 TOTAL (test code = 25 mmol/L 23-31 0924592569) AGAP (test code = 2-16 2307098396) BUN (test code = 13 mg/dL 7-23 3133005740) GLUCOSE (test code = 133 mg/dL 70-110 H 8526427621) CREATININE (test code = 0.66 mg/dL 0.5-1.04 7908901182) TOTAL BILI (test code = 0.5 mg/dL 0.1-1.5 4133617000) CALCIUM (test code = 9.6 mg/dL 8.6-10.6 7046985287) T PROTEIN (test code = 7.9 g/dL 6.3-8.2 6534114492) ALBUMIN (test code = 4.4 g/dL 3.5-5 5686872949) ALK PHOS (test code = 135 U/L 34-122 H 9538030325) ALTv (test code = 36 U/L 5-35 H 1742-6) AST(SGOT) (test code = 33 U/L 13-40 9223055207) eGFR Calculation mL/min/1.73m2 (Non-) (test code = 7572822654) eGFR Calculation mL/min/1.73m2 () (test code = 2464048910) LAKESHIA (test code = LAKESHIA) Association of Glomerular Filtration Rate (GFR) and Staging of Kidney Disease* + --+ --+ ------+| GFR (mL/min/1.73 m2) ?| With Kidney Damage ?| ?Without Kidney Damage+ --------+ --------+ +| ?>90 ?| ?Stage one ?| ? Normal ?+ ---+ ---+ -------+| ?60-89 ?| ?Stage two ?| ? Decreased GFR ? + --+ --+ ------+| ?30-59 ?| ?Stage three ?| ? Stage three ? + --+ --+ ------+| ?15-29 ?| ?Stage four ? | ? Stage four ?+ ---+ ---+ -------+| ?<15 (or dialysis) ? ?| ?Stage five ? | ? Stage five ?+ ---+ ---+ -------+ *Each stage assumes the associated GFR level has been in effect for at least three months. ?Stages 1 to 5, with or without kidney disease, indicate chronic kidney disease. Notes: Determination of stages one and two (with eGFR >59mL/min/1.73 m2) requires estimation of kidney damage for at least three months as defined by structural or functional abnormalities of the kidney, manifested by either:Pathological abnormalities or Markers of kidney damage (including abnormalities in the composition of the blood or urine or abnormalities in imaging tests). Lab Interpretation Abnormal (test code = 62786-4) [facility] CenterLIPASE2021-01-16 02:30:00 Test Item Value Reference Range Interpretation Comments LIPASE (test code = 9882698183) 96 U/L 0-220 Lab Interpretation (test code = Normal 82131-8) [facility] - DRUG SCREEN [id number] 02:21:00 Test Item Value Reference Range Interpretation Comments BENZO U (test code = Negative Negative 4735780694) CATARINO U (test code = Negative Negative 2830945719) AMPHET (test code = Negative Negative 5465426201) THC (test code = Negative Negative 5027864798) METHADONE (test code = Negative Negative 6778486424) Meth U (test code = Negative Negative 8623038001) OPIATES (test code = Negative Negative 2833135396) Cocaine Metabolite (test Negative Negative code = 0779534439) PROPOXY (test code = Negative Negative 0941896732) Tric U (test code = Negative Negative 6254905483) PCP (test code = Negative Negative 0070438398) OXYCOD (test code = Negative Negative 8254699804) LAKESHIA (test code = LAKESHIA) Urine Drug Cutoff Ranges Benzodiazepines: ? ? 150 ng/mLBarbiturates: ?200 ng/mLAmphetamine: ? 500 ng/mLCannabinoids: ?50 ?ng/mLMethadone: ? 200 ng/mLMethamphetamine: ? ? 500 ng/mL Opiates: ? 100 ng/mL or 2000 ng/mLCocaine: ? 150 ng/mLPropoxyphene: ?300 ng/mLTricyclics: ?300 ng/mLOxycodone: ? 100 ng/mLPCP: ? 25 ?ng/mL The results are to be used only for medical (i.e., treatment) purposes. Unconfirmed screening results must not be used for non-medical purposes (e.g., employment testing, legal testing). Lab Interpretation (test Normal code = 85060-9) [facility] CenterPOCT [id number] 02:16:00 Test Item Value Reference Range Interpretation Comments POCT PREG (test code = 1605) neg On board controls acceptable with yes C Line (test code = 3574) POCT PREG LOT # (test code = 3575) [id number] POCT PREG TEST DATE (test 11/19/2021 code = 3576) Lab Interpretation (test code = Normal 44254-9) [facility] CenterCB WITH [id number] 02:00:00 Test Item Value Reference Range Interpretation Comments WBC (test code = See_Comment [Automated message] 2790-2) The system [employer] generated this result transmitted ref erence range: 4.30 - 1 1.10 10*3/?L. The re ference range was not u sed to interpret this result as normal/abnor mal. RBC (test code = See_Comment [Automated message] 529-8) The system [employer] generated this result transmitted ref erence range: 3.93 - 5 .25 10*6/?L. The re ference range was not u sed to interpret this result as normal/abnor mal. HGB (test code = 13.9 g/dL 11.6-15 718-7) HCT (test code = 42.5 % 35.7-45.2 4544-3) MCV (test code = 86.0 fL 80.6-95.5 787-2) MCH (test code = 28.1 pg 25.9-32.8 785-6) MCHC (test code = 32.7 g/dL 31.6-35.1 786-4) RDW-SD (test code 43.1 fL 39-49.9 = 15194-6) RDW-CV (test code 13.7 % 12-15.5 = 788-0) PLT (test code = See_Comment [Automated message] 167-3) The system [employer] generated this result transmitted ref erence range: 166 - 35 8 10*3/?L. The re ference range was not u sed to interpret this result as normal/abnor mal. MPV (test code = 10.2 fL 9.5-12.9 54329-1) NRBC/100 WBC (test See_Comment [Automat ed message] code = 5359584964) The syste m which generated this result transmitted ref erence range: 0.0 - 10 .0 /100 WBCs. The refer ence range was not u sed to interpret this result as normal/abnor mal. NRBC x10^3 (test <0.01 See_Comment [Automated message] code = 5667405463) The syste m which generated this result transmitted ref erence range: 10*3/?L. The reference range was not used to interpr et this result as normal/abnormal . GRAN MAT (NEUT) % 57.8 % (test code = 770-8) IMM GRAN % (test 0.30 % code = 7656582475) LYMPH % (test code 33.6 % = 736-9) MONO % (test code 5.4 % = 5905-5) EOS % (test code = 2.3 % 713-8) BASO % (test code 0.6 % = 706-2) GRAN MAT 4.06 10*3/uL 1.88-7.09 x10^3(ANC) (test code = 5246608134) IMM GRAN x10^3 <0.03 0-0.06 (test code = 8161721384) LYMPH x10^3 (test 2.36 10*3/uL 1.32-3.29 code = 731-0) MONO x10^3 (test 0.38 10*3/uL 0.33-0.92 code = 742-7) EOS x10^3 (test 0.16 10*3/uL 0.03-0.39 code = 711-2) BASO x10^3 (test 0.04 10*3/uL 0.01-0.07 code = 704-7) [facility] CenterXR CHEST 1 [id number] 01:45:02 No distinct radiographic evidence of acute cardiopulmonary process. RL: 135 ORDERING PHYSICIAN: Julito SILVER HISTORY: Shortness of breath. ? COMPARISON: 12/17/2019 FINDINGS: Single frontal view of the chest. Heart is normal in size. ?There is no pulmonary edema. There are no focalareas of consolidation. There is no pneumothorax. ?There are no pleuraleffusions. Osseous structures are unremarkable. ? Please note that chest radiography isnot a sensitive modality for thedetection of masses. Sdmb, Radiant Results Inft User - 04/05/2020 7:46 PM CSTORDERING PHYSICIAN: NE RUBIN HISTORY: Shortness of breath. COMPARISON: 12/17/2019FINDINGS:Single frontal view of the chest.Heart is normal in size. There is no pulmonary edema. There are no focalareas of consolidation. There is no pneumothorax. There are no pleuraleffusions. Osseous structures are unremarkable. Please note that chest radiography is not a sensitive modality for thedetection of masses.IMPRESSIONNo distinct radiographic evidence of acute cardiopulmonary process.RL: 135 [id number] 07:[facility]00 Test Item Value Reference Range Interpretation Comments TROPONIN I (test <0.012 See_Comment [Automated code = 0336706434) message] The system which generated this result transmitted reference range : <=0.034 ng/mL. The reference range was not used to interpr et this result as normal/abnormal . LAKESHIA (test code = Equal or Less than LAKESHIA) 0.034 ng/ml---Normal ?Note: Cardiac troponin begins to rise 3-4 hours after the onset of ischemia. Repeat in 4-6 hours if the sample was drawn within 3-4 hours of the onset of the symptom and found normal. Between 0.035 and 0.120 ng/mL--- Borderline. Questionable myocardial injury or necrosis ? ?Note: Serial measurement may be necessary to confirm or exclude the diagnosis of myocardial injury or necrosis; Clinical correlation (symptoms, EKGs, imaging studies, and others) required; Repeat in 4-6 hours if clinically indicated. ? Equal or Higher than 0.121 ng/mL---Abnormal. Myocardial Injury or Necrosis Likely ? Biotin has been reported to cause a negative bias, interpret results relative to patient's use of biotin. ? Lab Interpretation Normal (test code = 87848-7) [facility] Metabolic Panel (NA, K, CL, CO2, GLUCOSE, BUN, CREATININE, CA)2019-12-26 07:16:00 Test Item Value Reference Range Interpretation Comments NA (test code = 138 mmol/L 135-145 8403467365) K (test code = 3.9 mmol/L 3.5-5 1950091311) CL (test code = 104 mmol/L 98-108 8185275585) CO2 TOTAL (test code = 28 mmol/L 23-31 1825352611) AGAP (test code = 2-16 8677219465) BUN (test code = 9 mg/dL 7-23 0106981201) GLUCOSE (test code = 126 mg/dL 70-110 H 9165314026) CREATININE (test code = 0.62 mg/dL 0.5-1.04 5694521220) CALCIUM (test code = 8.9 mg/dL 8.6-10.6 5088301966) eGFR Calculation mL/min/1.73m2 (Non-) (test code = 3438377031) eGFR Calculation mL/min/1.73m2 () (test code = 0154099476) LAKESHIA (test code = LAKESHIA) Association of Glomerular Filtration Rate (GFR) and Staging of Kidney Disease* + --+ --+ ------+| GFR (mL/min/1.73 m2) ?| With Kidney Damage ?| ?Without Kidney Damage+ --------+ --------+ +| ?>90 ?| ?Stage one ?| ? Normal ?+ ---+ ---+ -------+| ?60-89 ?| ?Stage two ?| ? Decreased GFR ? + --+ --+ ------+| ?30-59 ?| ?Stage three ?| ? Stage three ? + --+ --+ ------+| ?15-29 ?| ?Stage four ? | ? Stage four ?+ ---+ ---+ -------+| ?<15 (or dialysis) ? ?| ?Stage five ? | ? Stage five ?+ ---+ ---+ -------+ *Each stage assumes the associated GFR level has been in effect for at least three months. ?Stages 1 to 5, with or without kidney disease, indicate chronic kidney disease. Notes: Determination of stages one and two (with eGFR >59mL/min/1.73 m2) requires estimation of kidney damage for at least three months as defined by structural or functional abnormalities of the kidney, manifested by either:Pathological abnormalities or Markers of kidney damage (including abnormalities in the composition of the blood or urine or abnormalities in imaging tests). Lab Interpretation Abnormal (test code = 41578-9) [facility] CenterHepatic Function Panel (ALB, T.PRO, BILI T, BU/BC, ALT, AST, ALK PHOS)2019-12-26 07:16:00 Test Item Value Reference Range Interpretation Comments TOTAL BILI (test code = 9831645114) 0.2 mg/dL 0.1-1.1 BILI UNCON (test code = 5957287505) 0.2 mg/dL 0.1-1.1 BILI CONJ (test code = 8563079383) 0.0 mg/dL 0-0.3 T PROTEIN (test code = 3263671644) 6.6 g/dL 6.3-8.2 ALBUMIN (test code = 2431935763) 3.6 g/dL 3.5-5 ALK PHOS (test code = 1446977766) 113 U/L 34-122 ALTv (test code = 1742-6) 30 U/L 5-35 AST(SGOT) (test code = 2882298399) 34 U/L 13-40 Lab Interpretation (test code = Normal 43970-7) [facility] CenterLipase [id number] 07:16:00 Test Item Value Reference Range Interpretation Comments LIPASE (test code = 9701459407) 70 U/L 0-220 Lab Interpretation (test code = Normal 81987-3) [facility] CenterADC / [facility] - DR[facility] S[facility]EN [id number] 07:09:00 Test Item Value Reference Range Interpretation Comments BENZO U (test code = Negative Negative 4335910059) CATARINO U (test code = Negative Negative 2374585158) AMPHET (test code = Negative Negative 3264458017) THC (test code = Negative Negative 6017102596) METHADONE (test code = Negative Negative 3042100743) Meth U (test code = Negative Negative 2686075321) OPIATES (test code = Presumptive Positive Negative A 5570994360) Cocaine Metabolite (test Negative Negative code = 7807424544) PROPOXY (test code = Negative Negative 4385010996) Tric U (test code = Negative Negative 0270167721) PCP (test code = Negative Negative 7413792046) OXYCOD (test code = Negative Negative 6203168293) LAKESHIA (test code = LAKESHIA) Urine Drug Cutoff Ranges Benzodiazepines: ? ? 150 ng/mLBarbiturates: ?200 ng/mLAmphetamine: ? 500 ng/mLCannabinoids: ?50 ?ng/mLMethadone: ? 200 ng/mLMethamphetamine: ? ? 500 ng/mL Opiates: ? 100 ng/mL or 2000 ng/mLCocaine: ? 150 ng/mLPropoxyphene: ?300 ng/mLTricyclics: ?300 ng/mLOxycodone: ? 100 ng/mLPCP: ? 25 ?ng/mL The results are to be used only for medical (i.e., treatment) purposes. Unconfirmed screening results must not be used for non-medical purposes (e.g., employment testing, legal testing). Lab Interpretation (test Abnormal code = 84291-3) [facility] with [id number] 06:56:00 Test Item Value Reference Range Interpretation Comments WBC (test code = See_Comment [Automated 6526-2) message] The sy stem which generated this result transmitted reference range : 4.30 - 11.10 10*3/?L. The reference range was not used to interpret this result as normal/abnormal . RBC (test code = See_Comment L [Automated 997-5) message] The sy stem which generated this result transmitted reference range : 3.93 - 5.25 10*6/?L. The reference range was not used to interpret this result as normal/abnormal . HGB (test code = 11.2 g/dL 11.6-15 L 718-7) HCT (test code = 34.3 % 35.7-45.2 L 4544-3) MCV (test code = 88.2 fL 80.6-95.5 787-2) MCH (test code = 28.8 pg 25.9-32.8 785-6) MCHC (test code = 32.7 g/dL 31.6-35.1 786-4) RDW-SD (test code = 44.4 fL 39-49.9 88321-4) RDW-CV (test code = 13.7 % 12-15.5 788-0) PLT (test code = See_Comment [Automated 777-3) message] The sy stem which generated this result transmitted reference range : 166 - 358 10*3/ ?L. The reference r alee was not used to interpret this result as normal/abnormal . MPV (test code = 10.0 fL 9.5-12.9 82077-5) NRBC/100 WBC (test See_Comment [Automat ed code = 2375846311) message] The system which generated this result transmitted reference range : 0.0 - 10.0 /100 WBCs. The refer ence range was not u sed to interpret th is result as normal/abnormal . NRBC x10^3 (test code <0.01 See_Comment [Auto mated = 6289344851) message] The s ystem which generated this result transmitted reference range : 10*3/?L. The reference range was not used to interpret this result as normal/abnormal . GRAN MAT (NEUT) % 60.7 % (test code = 770-8) IMM GRAN % (test code 0.40 % = 6248632444) LYMPH % (test code = 29.4 % 736-9) MONO % (test code = 5.1 % 5905-5) EOS % (test code = 3.8 % 713-8) BASO % (test code = 0.6 % 706-2) GRAN MAT x10^3(ANC) 3.20 10*3/uL 1.88-7.09 (test code = 0406494740) IMM GRAN x10^3 (test <0.03 0-0.06 code = 8330566370) LYMPH x10^3 (test code 1.55 10*3/uL 1.32-3.29 = 731-0) MONO x10^3 (test code 0.27 10*3/uL 0.33-0.92 L = 742-7) EOS x10^3 (test code = 0.20 10*3/uL 0.03-0.39 711-2) BASO x10^3 (test code 0.03 10*3/uL 0.01-0.07 = 704-7) Lab Interpretation Abnormal (test code = 84497-3) [facility] CenterCT, [id number] 02:38:00Reason for exam:->ABDOMINAL PAINReason for exam:->DIARRHEAReason for exam:->CHEST PAINIs the patient ?->NoWhat is the patient's sedation requirement?- >No SedationFINAL REPORT TECHNIQUE: CT of the abdomen and [...] HEPATOBILIARY: No focal hepatic lesions. Gallbladder is unremar kable. No biliary ductal dilatation.SPLEEN: No splenomegaly.PANCREAS: No focal masses or ductal dilatation. ADRENALS: No adrenal nodules.KIDNEYS/URETERS: No hydronephrosis, stones, or exophytic masses.PELVIC ORGANS/BLADDER: Bladder is collapsed. Uterus is unremarkable. No adnexal mass. PERITONEUM/RETROPERITONEUM: No free air or fluid.LYMPH NODES: No lymphadenopathy.VESSELS: Unremarkable. GI TRACT: Gastric band is in place without evidence of slippage. There are foci of gas along the gastric wall subjacent to the gastric band. No bowel wall thickening or distention. Normal appendix. BONES AND SOFT TISSUES: No acute osseous abnormality or significant soft tissue finding. IMPRESSION:1. No obstructiveuropathy or nephrolithiasis. 2. Foci of air interpositioned between the margins of the gastric lap band and gastric wall questionable for mucosal erosion. If clinically warranted, consider further evaluation with endoscopy on an urgent but nonemergent basis. Signed: Ciara Monsivais MDReport Verified Date/ Time: 12/25/2019 02:38:32 URINALYSIS W/ [id number] 01:44:00 Test Item Value Reference Range Interpretation [...] = 1663) SOURCE(BEAKER) (test code = 2795) SCREEN, [id number] 01:31:00 Test Item Value Reference Range Interpretation Comments TEST URINE (BEAKER) (test Negative code = 583) RAD, CHEST, 1 VIEW, NON [id number] 00:14:00Reason for exam:->chest painReason for exam:->DIARRHEAReason for exam:->CHEST PAINIs the patient ?->Unknownupt pendingShould this be performed at the bedside?->Yes FINAL REPORT Chest, 1 view. History: Chest pain and diarrhea. Comparison: None available. Impression:Examination limited by low lung volumes, overlying soft tissue and underpenetration. Cardiomediastinal silhouette is enlarged, possibly exaggerated by technique. Prominence of the c entral pulmonary vasculature is concerning for pulmonary vascular congestion. Hazy airspace opacities likely related to technique however difficult to exclude superimposed atypical infection. No lobar consolidation or large pleural effusion. The costophrenic angles are not included on this study. No pn eumothorax. Osseous structures are grossly unremarkable. Signed: Keya Jaimes MDReport Verified Date/Time: 12/25/2019 00:14:07 12:14 TROPONIN [id number] 23:42:00 Test Item Value Reference Range Interpretation [...] failure, acidosis, acute neurological disease, and persistent tachyarrhythmia.[employer] ID - ADMINHEPATIC FUNCTION [id number] 23:36:00 Test Item Value Reference Range Interpretation [...] (test code = 20 U/L 5-50 347) [employer] ID - [id number] 23:36:00 Test Item Value Reference Range Interpretation Comments LIPASE (BEAKER) (test code = 749) 30 U/L 6-51 [employer] ID - ADMINCREATINE KINASE (CK)2019-12-24 23:36:00 Test Item Value Reference Range Interpretation Comments CREATINE KINASE TOTAL (BEAKER) (test 38 U/L 25-235 code = 380) [employer] ID - ADMINBASIC METABOLIC [id number] 23:34:00 Test Item Value Reference Range Interpretation Comments SODIUM (BEAKER) 141 meq/L 135-148 (test code = 381) POTASSIUM (BEAKER) 3.9 meq/L 3.6-5.5 (test code = 379) CHLORIDE (BEAKER) 106 meq/L 98-106 (test code = 382) CO2 (BEAKER) (test 26 meq/L 20-29 code = 355) BLOOD UREA NITROGEN 8 mg/dL 10-26 L (BEAKER) (test code = 354) CREATININE (BEAKER) 0.75 mg/dL 0.50-1.20 (test code = 358) GLUCOSE RANDOM 127 mg/dL 70-110 H (BEAKER) (test code = 652) CALCIUM (BEAKER) 8.8 mg/dL 8.5-10.5 (test code = 697) EGFR (BEAKER) (test 86 mL/min/1.73 ESTIMA KENROY GFR IS code = 1092) sq m NOT ACCURATE CREATININE CLEARANCE IN PREDICTING GLOMERULAR FILTRATION RATE . ESTIMATED GFR I S NOT APPLICABLE FOR DIALYSIS PATIEN TS. [employer] ID - ADMINCBC W/PLT COUNT & AUTO [id number] 23:15:00 Test Item Value Reference Range Interpretation [...] 0-0 PERCENT (BEAKER) (test code = 2801) POCT GLUCOSE (AUTOMATED)2019-12-20 16:52:00 Test Item Value Reference Range Interpretation Comments POCT GLU (test code = 0940896135) 120 mg/dL 70-110 H Lab Interpretation (test code = Abnormal 71216-2) [facility] GLUCOSE (AUTOMATED)2019-12-20 13:51:00 Test Item Value Reference Range Interpretation Comments POCT GLU (test code = 5632420259) 217 mg/dL 70-110 H Lab Interpretation (test code = Abnormal 25436-0) [facility] (NA, K, CL, CO2, GLUCOSE, BUN, CREATININE, CA)2019-12-20 10:10:00 Test Item Value Reference Range Interpretation Comments NA (test code = 137 mmol/L 135-145 1182686390) K (test code = 4.1 mmol/L 3.5-5 8341360456) CL (test code = 103 mmol/L 98-108 4588163096) CO2 TOTAL (test code = 27 mmol/L 23-31 8534383498) AGAP (test code = 2-16 8601346356) BUN (test code = 10 mg/dL 7-23 2300598335) GLUCOSE (test code = 116 mg/dL 70-110 H 0687898698) CREATININE (test code = 0.58 mg/dL 0.5-1.04 2873218150) CALCIUM (test code = 8.8 mg/dL 8.6-10.6 5177249631) eGFR Calculation mL/min/1.73m2 (Non-) (test code = 2315154369) eGFR Calculation mL/min/1.73m2 () (test code = 9547290006) LAKESHIA (test code = LAKESHIA) Association of Glomerular Filtration Rate (GFR) and Staging of Kidney Disease* + --+ --+ ------+| GFR (mL/min/1.73 m2) ?| With Kidney Damage ?| ?Without Kidney Damage+ --------+ --------+ +| ?>90 ?| ?Stage one ?| ? Normal ?+ ---+ ---+ -------+| ?60-89 ?| ?Stage two ?| ? Decreased GFR ? + --+ --+ ------+| ?30-59 ?| ?Stage three ?| ? Stage three ? + --+ --+ ------+| ?15-29 ?| ?Stage four ? | ? Stage four ?+ ---+ ---+ -------+| ?<15 (or dialysis) ? ?| ?Stage five ? | ? Stage five ?+ ---+ ---+ -------+ *Each stage assumes the associated GFR level has been in effect for at least three months. ?Stages 1 to 5, with or without kidney disease, indicate chronic kidney disease. Notes: Determination of stages one and two (with eGFR >59mL/min/1.73 m2) requires estimation of kidney damage for at least three months as defined by structural or functional abnormalities of the kidney, manifested by either:Pathological abnormalities or Markers of kidney damage (including abnormalities in the composition of the blood or urine or abnormalities in imaging tests). Lab Interpretation Abnormal (test code = 02810-9) [facility] Test Item Value Reference Range Interpretation Comments MAGNESIUM (test code = 9804368316) 1.7 mg/dL 1.7-2.4 Lab Interpretation (test code = Normal 00847-5) [facility] [id number] 09:43:00 Test Item Value Reference Range Interpretation Comments WBC (test code = See_Comment [Automated message] 8490-2) The system [employer] generated this result transmitted ref erence range: 4.30 - 1 1.10 10*3/?L. The re ference range was not u sed to interpret this result as normal/abnor mal. RBC (test code = See_Comment [Automated message] 659-8) The system [employer] generated this result transmitted ref erence range: 3.93 - 5 .25 10*6/?L. The re ference range was not u sed to interpret this result as normal/abnor mal. HGB (test code = 12.8 g/dL 11.6-15 718-7) HCT (test code = 38.7 % 35.7-45.2 4544-3) MCV (test code = 87.8 fL 80.6-95.5 787-2) MCH (test code = 29.0 pg 25.9-32.8 785-6) MCHC (test code = 33.1 g/dL 31.6-35.1 786-4) RDW-SD (test code 43.7 fL 39-49.9 = 26623-9) RDW-CV (test code 13.5 % 12-15.5 = 788-0) PLT (test code = See_Comment [Automated message] 567-3) The system [employer] generated this result transmitted ref erence range: 166 - 35 8 10*3/?L. The re ference range was not u sed to interpret this result as normal/abnor mal. MPV (test code = 9.8 fL 9.5-12.9 93799-2) NRBC/100 WBC (test See_Comment [Automat ed message] code = 4353419489) The syste m which generated this result transmitted ref erence range: 0.0 - 10 .0 /100 WBCs. The refer ence range was not u sed to interpret this result as normal/abnor mal. NRBC x10^3 (test <0.01 See_Comment [Automated message] code = 8620218472) The syste m which generated this result transmitted ref erence range: 10*3/?L. The reference range was not used to interpr et this result as normal/abnormal . GRAN MAT (NEUT) % 48.6 % (test code = 770-8) IMM GRAN % (test 0.00 % code = 1427648535) LYMPH % (test code 40.6 % = 736-9) MONO % (test code 6.2 % = 5905-5) EOS % (test code = 4.1 % 713-8) BASO % (test code 0.5 % = 706-2) GRAN MAT 2.75 10*3/uL 1.88-7.09 x10^3(ANC) (test code = 0671929870) IMM GRAN x10^3 <0.03 0-0.06 (test code = 4282251954) LYMPH x10^3 (test 2.30 10*3/uL 1.32-3.29 code = 731-0) MONO x10^3 (test 0.35 10*3/uL 0.33-0.92 code = 742-7) EOS x10^3 (test 0.23 10*3/uL 0.03-0.39 code = 711-2) BASO x10^3 (test 0.03 10*3/uL 0.01-0.07 code = 704-7) [facility] GLUCOSE (AUTOMATED)2019-12-20 02:08:00 Test Item Value Reference Range Interpretation Comments POCT GLU (test code = 1336764661) 142 mg/dL 70-110 H Lab Interpretation (test code = Abnormal 95314-8) [facility] GLUCOSE (AUTOMATED)2019-12-19 22:06:00 Test Item Value Reference Range Interpretation Comments POCT GLU (test code = 2060031726) 113 mg/dL 70-110 H Lab Interpretation (test code = Abnormal 13415-4) [facility] GLUCOSE (AUTOMATED)2019-12-19 17:01:00 Test Item Value Reference Range Interpretation Comments POCT GLU (test code = 7973775065) 151 mg/dL 70-110 H Lab Interpretation (test code = Abnormal 74655-1) [facility] GLUCOSE (AUTOMATED)2019-12-19 13:26:00 Test Item Value Reference Range Interpretation Comments POCT GLU (test code = 4044736566) 126 mg/dL 70-110 H Lab Interpretation (test code = Abnormal 38494-3) [facility] 12:27:00 Test Item Value Reference Range Interpretation Comments MAGNESIUM (test code = 3217467018) 1.8 mg/dL 1.7-2.4 Lab Interpretation (test code = Normal 02141-8) [facility] Metabolic Panel (NA, K, CL, CO2, GLUCOSE, BUN, CREATININE, CA)2019-12-19 09:56:00 Test Item Value Reference Range Interpretation Comments NA (test code = 135 mmol/L 135-145 9734646484) K (test code = 4.1 mmol/L 3.5-5 5896651852) CL (test code = 102 mmol/L 98-108 5767610269) CO2 TOTAL (test code = 27 mmol/L 23-31 4446751520) AGAP (test code = 2-16 1848899543) BUN (test code = 13 mg/dL 7-23 2494463479) GLUCOSE (test code = 110 mg/dL 70-110 8661653851) CREATININE (test code = 0.62 mg/dL 0.5-1.04 6521626372) CALCIUM (test code = 8.4 mg/dL 8.6-10.6 L 4262608962) eGFR Calculation mL/min/1.73m2 (Non-) (test code = 8322271897) eGFR Calculation mL/min/1.73m2 () (test code = 1042642855) LAKESHIA (test code = LAKESHIA) Association of Glomerular Filtration Rate (GFR) and Staging of Kidney Disease* + --+ --+ ------+| GFR (mL/min/1.73 m2) ?| With Kidney Damage ?| ?Without Kidney Damage+ --------+ --------+ +| ?>90 ?| ?Stage one ?| ? Normal ?+ ---+ ---+ -------+| ?60-89 ?| ?Stage two ?| ? Decreased GFR ? + --+ --+ ------+| ?30-59 ?| ?Stage three ?| ? Stage three ? + --+ --+ ------+| ?15-29 ?| ?Stage four ? | ? Stage four ?+ ---+ ---+ -------+| ?<15 (or dialysis) ? ?| ?Stage five ? | ? Stage five ?+ ---+ ---+ -------+ *Each stage assumes the associated GFR level has been in effect for at least three months. ?Stages 1 to 5, with or without kidney disease, indicate chronic kidney disease. Notes: Determination of stages one and two (with eGFR >59mL/min/1.73 m2) requires estimation of kidney damage for at least three months as defined by structural or functional abnormalities of the kidney, manifested by either:Pathological abnormalities or Markers of kidney damage (including abnormalities in the composition of the blood or urine or abnormalities in imaging tests). Lab Interpretation Abnormal (test code = 49563-2) [facility] CHEST PULMONARY [id number] 03:11:10 1. ?Suboptimal study. Enhancement is inadequate, partially due to extensivequantum mottle artifact (excessive soft tissue attenuation secondary toobese body habitus). 2. ?There is no large occlusive intraluminal filling defect in the main,lobar or proximal segmental pulmonary artery. A questionable filling defectin the left lower lobe posterior segmental branch (4:130) may represent anartifact. 3. ?Stable 1.5 cm right thyroid lobe nodule. Follow-up with nonemergentthyroid ultrasound as clinically indicated. Hepatomegaly with hepaticsteatosis. Gastric banding with fluid distended stomach. Preliminary Report Dictated by Resident: Garcia Paris ?MD. Cynthia, have reviewed this study and agree with theabove report.PROCEDURE: CT ANGIO CHEST WITH CONTRAST - PE PROTOCOL CLINICAL INDICATION: PE suspected, intermediate prob, neg D-dimer ? COMPARISON: CT chest on 12/05/2019 TECHNIQUE: ?Helical CT was performed and reconstructed at 1.25 mm slicethickness from lung base to apices after the administration of 100 mLOmnipaque-350 intravenous contrast. Display field of view: 40 ?cm. FINDINGS: PULMONARY ARTERIES:Enhancement is inadequate (HU 128), partially due to extensive quantummottle artifact. There is no large occlusive intraluminal filling defect inthe main, lobar or proximal segmental pulmonary artery. A questionablefilling defect in the left lower lobeposterior segmental branch (4:130)may represent nonocclusive thrombus. The exam is nondiagnostic for theevaluation of distal segmental or subsegmental pulmonary emboli. CHEST:Lower neck/thyroid: Asymmetric enlargement of the right thyroid lobecontaining a 1.5 cm hypodense nodule (4:34). Lungs and Pleura: The lungs are clear. ?No pleural effusion or pneumothoraxis visualized. Central airway: The central airways are patent. No bronchiectasis ispresent. Heart and thoracic great vessels: The heart is normal in size. ?Nodetectable coronary arterial calcification. No pericardial effusion isidentified. The thoracic aorta and arch vessels are normal in caliber. Lymph nodes: No enlarged axillary, mediastinal, or hilar lymphadenopathy byCT criteria. Thoracic spine and chest wall: Unremarkable, with normal thoracic vertebralbody heights. No focal aggressive osseous lesion is present. Visualized upper abdomen: Postsurgical changes of gastric banding withfluid distended stomach distal to the gastric band. The liver is enlargedand diffusely hypodense, consistent with hepatic steatosis. [facility], Radiant Results Inft User - 12/18/2019 10:12 PM CDTPROCEDURE: CT ANGIO CHEST WITH CONTRAST - PE PROTOCOLCLINICAL INDICATION: PE suspected, intermediate prob, neg D-dimer COMPARISON: CT chest on 12/05/2019TECHNIQUE: Helical CT was performed and reconstructed at 1.25 mm slicethickness fromlung base to apices after the administration of 100 mLOmnipaque-350 intravenous contrast. Display field of view: 40 cm.FINDINGS:PULMONARY ARTERIES:Enhancement is inadequate (HU 128), partially due to extensive quantummottle artifact. There is no large occlusive intraluminal filling defect inthe main, lobar or proximal segmental pulmonary artery. A questionablefilling defect in the left lower lobe posterior segmental branch (4:130)may represent nonocclusive thrombus. The exam is nondiagnostic for theevaluation of distal segmental or subsegmental pulmonary emboli.CHEST:Lower neck/thyroid: Asymmetric enlargement of the right thyroid lobecontaining a 1.5 cm hypodense nodule (4:34).Lungs and Pleura: The lungs are clear. No pleural effusion or pneumothoraxis visualized. Central airway: The central airways are patent. No bronchiectasis ispresent. Heart and thoracic great vessels: The heart is normal insize. Nodetectable coronary arterial calcification. No pericardial effusion isidentified. The thoracic aorta and arch vessels are normal in caliber. Lymph nodes: No enlarged axillary, mediastinal, or hilar lymphadenopathy byCT criteria. Thoracic spine and chest wall: Unremarkable, with normal thoracicvertebralbody heights. No focal aggressive osseous lesion is present. Visualized upper abdomen: Postsurgical changes of gastric banding withfluid distended stomach distal to the gastric band. The liveris enlargedand diffusely hypodense, consistent with hepatic steatosis. IMPRESSION1. Suboptimal study. Enhancement is inadequate, partially due to extensivequantum mottle artifact (excessive soft tissue attenuation secondary toobese body habitus). 2. There is no large occlusive intraluminal filling defect in the main,lobar or proximal segmental pulmonary artery. A questionable filling defectin the left lower lobe posterior segmental branch (4:130) may represent anartifact. 3. Stable 1.5 cm right thyroid lobe nodule. Follow-up with nonemergentthyroid ultrasound as clinically indicated. Hepatomegaly with hepaticsteatosis. Gastric banding with fluid distended stomach. Preliminary Report Dictated by Resident: Garcia Hernandez MD., have reviewed this study and agree with theabove report.[facility] GLUCOSE (AUTOMATED)2019-12-19 01:48:00 Test Item Value Reference Range Interpretation Comments POCT GLU (test code = 0410397671) 122 mg/dL 70-110 H Lab Interpretation (test code = Abnormal 34121-0) [facility] GLUCOSE (AUTOMATED)2019-12-18 17:33:00 Test Item Value Reference Range Interpretation Comments POCT GLU (test code = 2117994278) 153 mg/dL 70-110 H Lab Interpretation (test code = Abnormal 61581-6) [facility] GLUCOSE (AUTOMATED)2019-12-18 13:12:00 Test Item Value Reference Range Interpretation Comments POCT GLU (test code = 7433230590) 119 mg/dL 70-110 H Lab Interpretation (test code = Abnormal 38535-0) [facility] Metabolic Panel (NA, K, CL, CO2, GLUCOSE, BUN, CREATININE, CA)2019-12-18 11:03:00 Test Item Value Reference Range Interpretation Comments NA (test code = 136 mmol/L 135-145 0022083639) K (test code = 4.4 mmol/L 3.5-5 0465634808) CL (test code = 103 mmol/L 98-108 7091115988) CO2 TOTAL (test code = 26 mmol/L 23-31 4375398440) AGAP (test code = 2-16 2791168246) BUN (test code = 17 mg/dL 7-23 4914228697) GLUCOSE (test code = 123 mg/dL 70-110 H 1942782362) CREATININE (test code = 0.74 mg/dL 0.5-1.04 6706879196) CALCIUM (test code = 8.9 mg/dL 8.6-10.6 9204674618) eGFR Calculation mL/min/1.73m2 (Non-) (test code = 3550481005) eGFR Calculation mL/min/1.73m2 () (test code = 5062736951) LAKESHIA (test code = LAKESHIA) Association of Glomerular Filtration Rate (GFR) and Staging of Kidney Disease* + --+ --+ ------+| GFR (mL/min/1.73 m2) ?| With Kidney Damage ?| ?Without Kidney Damage+ --------+ --------+ +| ?>90 ?| ?Stage one ?| ? Normal ?+ ---+ ---+ -------+| ?60-89 ?| ?Stage two ?| ? Decreased GFR ? + --+ --+ ------+| ?30-59 ?| ?Stage three ?| ? Stage three ? + --+ --+ ------+| ?15-29 ?| ?Stage four ? | ? Stage four ?+ ---+ ---+ -------+| ?<15 (or dialysis) ? ?| ?Stage five ? | ? Stage five ?+ ---+ ---+ -------+ *Each stage assumes the associated GFR level has been in effect for at least three months. ?Stages 1 to 5, with or without kidney disease, indicate chronic kidney disease. Notes: Determination of stages one and two (with eGFR >59mL/min/1.73 m2) requires estimation of kidney damage for at least three months as defined by structural or functional abnormalities of the kidney, manifested by either:Pathological abnormalities or Markers of kidney damage (including abnormalities in the composition of the blood or urine or abnormalities in imaging tests). Lab Interpretation Abnormal (test code = 90102-1) [id number] Test Item Value Reference Range Interpretation Comments TROPONIN I (test 0.023 ng/mL See_Comment Hemolyzed code = 1885041635) specimen [Automated message] The system which generated this result transmitted reference range : <=0.034. The reference range was not used to interpret this result as normal/abnormal . LAKESHIA (test code = Equal or Less than LAKESHIA) 0.034 ng/ml---Normal ?Note: Cardiac troponin begins to rise 3-4 hours after the onset of ischemia. Repeat in 4-6 hours if the sample was drawn within 3-4 hours of the onset of the symptom and found normal. Between 0.035 and 0.120 ng/mL--- Borderline. Questionable myocardial injury or necrosis ? ?Note: Serial measurement may be necessary to confirm or exclude the diagnosis of myocardial injury or necrosis; Clinical correlation (symptoms, EKGs, imaging studies, and others) required; Repeat in 4-6 hours if clinically indicated. ? Equal or Higher than 0.121 ng/mL---Abnormal. Myocardial Injury or Necrosis Likely ? Biotin has been reported to cause a negative bias, interpret results relative to patient's use of biotin. ? Lab Interpretation Normal (test code = 30555-0) [facility] with [id number] 06:05:00 Test Item Value Reference Range Interpretation Comments WBC (test code = See_Comment [Automated message] 0482-2) The system [employer] generated this result transmitted ref erence range: 4.30 - 1 1.10 10*3/?L. The re ference range was not u sed to interpret this result as normal/abnor mal. RBC (test code = See_Comment [Automated message] 439-8) The system [employer] generated this result transmitted ref erence range: 3.93 - 5 .25 10*6/?L. The re ference range was not u sed to interpret this result as normal/abnor mal. HGB (test code = 12.6 g/dL 11.6-15 718-7) HCT (test code = 38.2 % 35.7-45.2 4544-3) MCV (test code = 87.8 fL 80.6-95.5 787-2) MCH (test code = 29.0 pg 25.9-32.8 785-6) MCHC (test code = 33.0 g/dL 31.6-35.1 786-4) RDW-SD (test code 44.8 fL 39-49.9 = 65259-3) RDW-CV (test code 13.9 % 12-15.5 = 788-0) PLT (test code = See_Comment [Automated message] 747-3) The system [employer] generated this result transmitted ref erence range: 166 - 35 8 10*3/?L. The re ference range was not u sed to interpret this result as normal/abnor mal. MPV (test code = 10.1 fL 9.5-12.9 61521-0) NRBC/100 WBC (test See_Comment [Automat ed message] code = 8999340704) The syste m which generated this result transmitted ref erence range: 0.0 - 10 .0 /100 WBCs. The refer ence range was not u sed to interpret this result as normal/abnor mal. NRBC x10^3 (test <0.01 See_Comment [Automated message] code = 6259590883) The syste m which generated this result transmitted ref erence range: 10*3/?L. The reference range was not used to interpr et this result as normal/abnormal . GRAN MAT (NEUT) % 61.6 % (test code = 770-8) IMM GRAN % (test 0.10 % code = 1372489873) LYMPH % (test code 29.1 % = 736-9) MONO % (test code 6.4 % = 5905-5) EOS % (test code = 2.4 % 713-8) BASO % (test code 0.4 % = 706-2) GRAN MAT 4.41 10*3/uL 1.88-7.09 x10^3(ANC) (test code = 9682609931) IMM GRAN x10^3 <0.03 0-0.06 (test code = 2802228344) LYMPH x10^3 (test 2.09 10*3/uL 1.32-3.29 code = 731-0) MONO x10^3 (test 0.46 10*3/uL 0.33-0.92 code = 742-7) EOS x10^3 (test 0.17 10*3/uL 0.03-0.39 code = 711-2) BASO x10^3 (test 0.03 10*3/uL 0.01-0.07 code = 704-7) [facility] 03:33:00 Test Item Value Reference Range Interpretation Comments HGB A1C (test code = 6.4 % 4-6 H 4548-4) LAKESHIA (test code = LAKESHIA) %A1C (NGSP) Interpretation (ADA)4.8-5.6 ? ? Normal or (Non-Diabetic Range)5.7-6.4 ? ? Increased Risk (Pre-Diabetic)>6.5 ?Diabetes Indicated Lab Interpretation Abnormal (test code = 81849-4) [id number] 23:23:00 Test Item Value Reference Interpretation Comments Range D-DIMER (test code = See_Comment H [Autom ated 2931396894) message] The system which generated this result transmitted reference range : <0.41 ?g/mL (FEU). The reference range was not used to interpret this result as normal/abnormal . LAKESHIA (test code = This test may be LAKESHIA) used in conjunction with a clinical pretest probability (PTP) assessment model to exclude venous thromboembolism (VTE) in patients suspected of deep venous thrombosis (DVT) and pulmonary embolism (PE) A D-Dimer value less than 0.50 ?g/ml (FEU) has a negative predicative value of [...] the clinical context, in forming a diagnosis. Lab Interpretation Abnormal (test code = 29320-5) [facility] / [facility] - DRUG SCREEN [id number] 21:44:00 Test Item Value Reference Range Interpretation Comments BENZO U (test code = Negative Negative 4980835518) CATARINO U (test code = Negative Negative 0986211445) AMPHET (test code = Negative Negative 3421567890) THC (test code = Negative Negative 8675469706) METHADONE (test code = Negative Negative 5919815630) Meth U (test code = Negative Negative 4181827437) OPIATES (test code = Negative Negative 8691034456) Cocaine Metabolite (test Negative Negative code = 4179225802) PROPOXY (test code = Negative Negative 6184248218) Tric U (test code = Negative Negative 6535603369) PCP (test code = Negative Negative 2136856231) OXYCOD (test code = Negative Negative 0274908590) LAKESHIA (test code = LAKESHIA) Urine Drug Cutoff Ranges Benzodiazepines: ? ? 150 ng/mLBarbiturates: ?200 ng/mLAmphetamine: ? 500 ng/mLCannabinoids: ?50 ?ng/mLMethadone: ? 200 ng/mLMethamphetamine: ? ? 500 ng/mL Opiates: ? 100 ng/mL or 2000 ng/mLCocaine: ? 150 ng/mLPropoxyphene: ?300 ng/mLTricyclics: ?300 ng/mLOxycodone: ? 100 ng/mLPCP: ? 25 ?ng/mL The results are to be used only for medical (i.e., treatment) purposes. Unconfirmed screening results must not be used for non-medical purposes (e.g., employment testing, legal testing). Lab Interpretation (test Normal code = 72040-3) [facility] CenterHENOK [id number] 21:32:00 Test Item Value Reference Range Interpretation Comments TROPONIN I (test 0.003 ng/mL See_Comment [Automated code = 6548296670) message] The system which generated this result transmitted reference range : <=0.034. The reference range was not used to interpret this result as normal/abnormal . LAKESHIA (test code = Equal or Less than LAKESHIA) 0.034 ng/ml---Normal ?Note: Cardiac troponin begins to rise 3-4 hours after the onset of ischemia. Repeat in 4-6 hours if the sample was drawn within 3-4 hours of the onset of the symptom and found normal. Between 0.035 and 0.120 ng/mL--- Borderline. Questionable myocardial injury or necrosis ? ?Note: Serial measurement may be necessary to confirm or exclude the diagnosis of myocardial injury or necrosis; Clinical correlation (symptoms, EKGs, imaging studies, and others) required; Repeat in 4-6 hours if clinically indicated. ? Equal or Higher than 0.121 ng/mL---Abnormal. Myocardial Injury or Necrosis Likely ? Biotin has been reported to cause a negative bias, interpret results relative to patient's use of biotin. ? Lab Interpretation Normal (test code = 27765-7) [facility] CenterN-TERMINAL [id number] 21:29:00 Test Item Value Reference Range Interpretation Comments NT-proBNP (test code 156 pg/mL See_Comment H [Autom ated = 8962062813) message] The system which generated this result transmitted reference range : <=125. The reference range was not used to interpret this result as normal/abnormal . LAKESHIA (test code = LAKESHIA) Biotin has been reported to cause a negative bias, interpret results relative to patient's use of biotin. Lab Interpretation Abnormal (test code = 74383-9) [facility] CenterPREGNANCY TEST, [id number] 21:28:00 Test Item Value Reference Range Interpretation Comments PREG SERUM (test code Negative = 0198032719) LAKESHIA (test code = LAKESHIA) Less than 10 IU/L. ?If low titer or ectopic is suspected, resubmit specimen in 48-72 hours. [facility] CenterXR CHEST 1 [id number] 21:22:41CHEST ONE VIEW HISTORY: ?Chest pain TECHNIQUE: ?AP view of the chest is obtained. COMPARISON: 12/04/2019 FINDINGS: Lungs are clear. Heart size and mediastinal silhouette arenormal. No pleural effusion or pneumothorax is seen. CONCLUSIONS: No acute cardiopulmonary disease. [facility], Radiant Results Inft User - 12/17/2019 4:23 PM CDTCHEST ONE VIEWHISTORY: Chest painTECHNIQUE: AP view of the chest is obtained .COMPARISON: 12/04/2019FINDINGS: Lungs are clear. Heart size and mediastinal silhouette arenormal. Nopleural effusion or pneumothorax is seen.CONCLUSIONS: No acute cardiopulmonary disease.[facility] CenterMAGNESIUM 2019-12-17 21:21:00 Test Item Value Reference Range Interpretation Comments MAGNESIUM (test code = 1890981484) 1.6 mg/dL 1.7-2.4 L Lab Interpretation (test code = Abnormal 97801-3) [facility] CenterCOVID-19 (ID NOW RAPID TESTING)2019-12-17 21:21:00 Test Item Value Reference Range Interpretation Comments SARS-CoV-2 Rapid ID NOW Not Detected Not Detected (test code = 57865-2) LAKESHIA (test code = LAKESHIA) ID NOW COVID-19 Assay is an isothermal nucleic acid amplification test intended for the qualitative detection of nucleic acid from SARS-CoV-2 viral RNA in nasopharyngeal (VISITOR SERVICES TECHNICIAN) specimens. It is used under Emergency Use Authorization (EUA) by FDA. The limit of detection (LOD) of the assay is 125 Genome Equivalents/mL. A positive result is indicative of the presence of SARS-CoV-2 RNA. ?Clinical correlation with patient history and other diagnostic [...] for repeat patient testing if clinically indicated. Lab Interpretation Normal (test code = 54869-5) [facility]. METABOLIC PANEL (99541)2019-12-17 21:20:00 Test Item Value Reference Range Interpretation Comments NA (test code = 135 mmol/L 135-145 1143104332) K (test code = 3.9 mmol/L 3.5-5 7389762372) CL (test code = 100 mmol/L 98-108 3200042539) CO2 TOTAL (test code = 23 mmol/L 23-31 0368756722) AGAP (test code = 2-16 7136686226) BUN (test code = 11 mg/dL 7-23 2310679814) GLUCOSE (test code = 181 mg/dL 70-110 H 1060724130) CREATININE (test code = 0.61 mg/dL 0.5-1.04 9579762119) TOTAL BILI (test code = 0.5 mg/dL 0.1-1.6 7160277222) CALCIUM (test code = 9.7 mg/dL 8.6-10.6 6888367025) T PROTEIN (test code = 7.9 g/dL 6.3-8.2 3857706069) ALBUMIN (test code = 4.0 g/dL 3.5-5 4923225665) ALK PHOS (test code = 121 U/L 34-122 3288019797) ALTv (test code = 24 U/L 5-35 1742-6) AST(SGOT) (test code = 25 U/L 13-40 0231992271) eGFR Calculation mL/min/1.73m2 (Non-) (test code = 6326718412) eGFR Calculation mL/min/1.73m2 () (test code = 3848869194) LAKESHIA (test code = LAKESHIA) Association of Glomerular Filtration Rate (GFR) and Staging of Kidney Disease* + --+ --+ ------+| GFR (mL/min/1.73 m2) ?| With Kidney Damage ?| ?Without Kidney Damage+ --------+ --------+ +| ?>90 ?| ?Stage one ?| ? Normal ?+ ---+ ---+ -------+| ?60-89 ?| ?Stage two ?| ? Decreased GFR ? + --+ --+ ------+| ?30-59 ?| ?Stage three ?| ? Stage three ? + --+ --+ ------+| ?15-29 ?| ?Stage four ? | ? Stage four ?+ ---+ ---+ -------+| ?<15 (or dialysis) ? ?| ?Stage five ? | ? Stage five ?+ ---+ ---+ -------+ *Each stage assumes the associated GFR level has been in effect for at least three months. ?Stages 1 to 5, with or without kidney disease, indicate chronic kidney disease. Notes: Determination of stages one and two (with eGFR >59mL/min/1.73 m2) requires estimation of kidney damage for at least three months as defined by structural or functional abnormalities of the kidney, manifested by either:Pathological abnormalities or Markers of kidney damage (including abnormalities in the composition of the blood or urine or abnormalities in imaging tests). Lab Interpretation Abnormal (test code = 81195-4) [facility] CenteraPTT2020-09-27 21:19:00 Test Item Value Reference Range Interpretation Comments APTT Patient (test See_Comment [Automat ed code = 3173-2) message] The system which generated this result transmitted reference range : 23 - 38 Seconds . The reference range was not used to interpr et this result as normal/abnormal . LAKESHIA (test code = LAKESHIA) The [facility] patient population mean normal value for aPTT is 30 seconds. Lab Interpretation Normal (test code = 62996-3) [facility] CenterPROTHROMBIN TIME / [id number] 21:17:00 Test Item Value Reference Range Interpretation Comments PROTIME PATIENT (test See_Comment [Auto mated message] code = 5964-2) The system [employer] generated this result transmitted ref erence range: 12.0 - 1 4.7 Seconds. The re ference range was not u sed to interpret this result as normal/abnor mal. INR (test code = 6301-6) Nor mal INR <1.1; Warfarin Therap eutic range 2.0 to 3. 0 or 2.5 to 3.5, dep ending upon the indica tions. Lab Interpretation (test Normal code = 30819-3) [facility] CenterURINALYSIS2020-09-27 21:12:00 Test Item Value Reference Range Interpretation Comments APPEARANCE (test code = Clear Clear 0074327615) COLOR (test code = Yellow Yellow 0792901047) PH (test code = 4.8-8.0 5598890112) SP GRAVITY (test code = 1.003-1.030 2909135937) GLU U QUAL (test code = Normal Normal 7890657640) BLOOD (test code = Negative Negative 6381013539) KETONES (test code = Negative Negative 6385135332) PROTEIN (test code = Negative Negative 2887-8) UROBILIN (test code = Normal Normal 7343729244) BILIRUBIN (test code = Negative Negative 4079644390) NITRITE (test code = Negative Negative 4120528544) LEUK CORNELL (test code = 25/uL Negative A 1135530660) RBC/HPF (test code = See_Comment [Autom ated message] 8358966985) The system [employer] generated this result transmitted ref erence range: 0 - 3 HP F. The reference range was not used to int erpret this result as normal/abnormal . WBC/HPF (test code = See_Comment [Autom ated message] 0951572317) The system [employer] generated this result transmitted ref erence range: 0 - 5 HP F. The reference range was not used to int erpret this result as normal/abnormal . BACTERIA (test code = Few Negative A 6544537972) MUCOUS (test code = Slight Negative LPF A 6272889552) SQ EPITH (test code = HPF 7032761234) Lab Interpretation (test Abnormal code = 57462-9) [facility] WITH [id number] 21:05:00 Test Item Value Reference Range Interpretation Comments WBC (test code = See_Comment [Automated 6690-2) message] The sy stem which generated this result transmitted reference range : 4.30 - 11.10 10*3/?L. The reference range was not used to interpret this result as normal/abnormal . RBC (test code = See_Comment [Automated 789-8) message] The sy stem which generated this result transmitted reference range : 3.93 - 5.25 10*6/?L. The reference range was not used to interpret this result as normal/abnormal . HGB (test code = 14.1 g/dL 11.6-15 718-7) HCT (test code = 42.0 % 35.7-45.2 4544-3) MCV (test code = 85.5 fL 80.6-95.5 787-2) MCH (test code = 28.7 pg 25.9-32.8 785-6) MCHC (test code = 33.6 g/dL 31.6-35.1 786-4) RDW-SD (test code = 42.1 fL 39-49.9 90478-6) RDW-CV (test code = 13.5 % 12-15.5 788-0) PLT (test code = See_Comment [Automated 777-3) message] The sy stem which generated this result transmitted reference range : 166 - 358 10*3/ ?L. The reference r alee was not used to interpret this result as normal/abnormal . MPV (test code = 9.7 fL 9.5-12.9 91543-7) NRBC/100 WBC (test See_Comment [Automat ed code = 1624199615) message] The system which generated this result transmitted reference range : 0.0 - 10.0 /100 WBCs. The refer ence range was not u sed to interpret th is result as normal/abnormal . NRBC x10^3 (test code <0.01 See_Comment [Auto mated = 6269541651) message] The s ystem which generated this result transmitted reference range : 10*3/?L. The reference range was not used to interpret this result as normal/abnormal . GRAN MAT (NEUT) % 55.8 % (test code = 770-8) IMM GRAN % (test code 0.40 % = 6889513115) LYMPH % (test code = 34.0 % 736-9) MONO % (test code = 5.0 % 5905-5) EOS % (test code = 4.1 % 713-8) BASO % (test code = 0.7 % 706-2) GRAN MAT x10^3(ANC) 3.15 10*3/uL 1.88-7.09 (test code = 9838420150) IMM GRAN x10^3 (test <0.03 0-0.06 code = 1945288842) LYMPH x10^3 (test code 1.92 10*3/uL 1.32-3.29 = 731-0) MONO x10^3 (test code 0.28 10*3/uL 0.33-0.92 L = 742-7) EOS x10^3 (test code = 0.23 10*3/uL 0.03-0.39 711-2) BASO x10^3 (test code 0.04 10*3/uL 0.01-0.07 = 704-7) Lab Interpretation Abnormal (test code = 84342-4) [facility] CenterCT THORAX W WO [id number] 18:20:46 Saddle pulmonary embolus extending into the bilateral interlobular,segmental and subsegmental pulmonary arteries of the right upper, middleand lower lobes as well as the left upper and lower lobe, likelyacute-subacute. CT findings suggestive of right heart strain and/or pulmonary arterialhypertension. Recommend correlation with echocardiogram. Right thyroid lobe 2.0 cm hypodense nodule. Recommend correlation withthyroid ultrasound as outpatient. Hepatomegaly. Gastric banding with small hiatal hernia. Findings relayed to Dr. Blanco on 10/23/2019 at 12:53 PM via telephone. Preliminary Report Dictated by Resident: Zachariah Samson I, Jacoby Ya MD., have reviewed this study and agree with the abovereport.PROCEDURE: CT THORAX W WO CONTRAST CLINICAL INDICATION: PE ? COMPARISON: Outside hospital report from 10/20/2019. Chest CT dated08/14/2019. TECHNIQUE: Contrast-enhanced chest CT of the chest was performed at [facility] with sagittal, coronal and coronal MIP reformats obtained.The outside hospital study was performed on 10/20/2019 at 0515 and thefinalized report was finalized on 10/20/2019 at 0030. The outside hospitalreport is available for review at time of dictation. FINDINGS: Pulmonary arteries: Multiple bilateral intraluminal hypodense fillingdefects representing pulmonary emboli are seen involving the right upper,middle and lower lobe segmental/subsegmental pulmonary arteries extendinginto the right interlobular and right main pulmonary artery with saddleembolus extending to the left main pulmonary artery, left upper and leftlower segmental/subsegmental pulmonary arteries. The pulmonary trunk isdilated up to 3.7 cm in diameter, which can be seen with pulmonary arterialhypertension. Lower neck/thyroid: Enlarged, heterogenous right thyroid lobe with a 2.0 cmright thyroid hypodense nodule. The visualized lower neck is otherwiseunremarkable. Lungs/Pleura:The lungs are hypoinflated with resultant pulmonary vascularcrowding. Mosaic attenuation of the lungs can be seen with small airwaysdisease. Subcentimeter calcified granuloma in the left upper lobe. Nopleural thickening, pleural effusion or pneumothorax. Central airway: The central airways are patent.Thoracic aorta and great vessels: Normal in diameter.. Heart and pericardium: No detectable coronaryarterial calcifications. Theheart size is normal. Normal pericardium. Increased right ventricular lumen: left ventricular lumen maximal diameter.Straightening and questionable minimal inward bowing of t heinterventricular septum. Reflux of contrast material into the central IVC,but not hepatic veins. These findings could suggest right heart strain. Lymph nodes: No enlarged thoracic lymph nodes. Mediastinum: Small sliding hiatal hernia. Small Morgagni hernia witheventration of fat. Thoracic spine and chest wall: No suspicious or aggressive osseous lesion. Other Lines/Tubes/Devices/Hardware: None Visualized upper abdomen: A gastric band is in place at the level justbelow the GE junction. Hepatomegaly. Decreased attenuation of the liversuggestive of hepatic steatosis. [facility], Radiant Results Inft User - 10/23/2019 1:30 PM CDTPROCEDURE: CT THORAX W WO CONTRASTCLINICAL ELIAZAR CATION: PE COMPARISON: Outside hospital report from 10/20/2019. Chest CT dated08/14/2019.TECHNIQUE: Contrast-enhanced chest CT of the chest was performed at [facility] with sagittal, coronal and coronal MIP reformats obtained.The outside hospital study was performed on 10/20/2019 at 0515 and thefi nalized report was finalized on 10/20/2019 at 0030. The outside hospitalreport is available for review at time of dictation.FINDINGS:Pulmonary arteries: Multiple bilateral intraluminal hypodense fillingdefects representing pulmonary emboli are seen involving the right upper,middle and lower lobe segmental/subsegmental pulmonary arteries extendinginto the right interlobular and right main pulmonary artery with saddleembolus extending to the left main pulmonary artery, left upper and leftlower segmental/subsegmental pulmonary arteries. The pulmonary trunk isdilated up to 3.7 cm in diameter, which can be seen with pulmonary arterialhypertension.Lower neck/thyroid: Enlarged, heterogenous right thyroid l obe with a 2.0 cmright thyroid hypodense nodule. The visualized lower neck is otherwiseunremarkable.Lungs/Pleura: The lungs are hypoinflated with resultant pulmonary vascularcrowding. Mosaic attenuation of the lungs can be seen with small airwaysdisease. Subcentimeter calcified granuloma in the left upper lobe. Nopleural thickening, pleural effusion or pneumothorax.Central airway: The central airwaysare patent.Thoracic aorta and great vessels: Normal in diameter.. Heart and pericardium: No detectable coronary arterial calcifications. Theheart size is normal. Normal pericardium.Increased right ventricular lumen: left ventricular lumen maximal diameter.Straightening and questionable minimal inward bowing of theinterventricular septum. Reflux of contrast material into the central IVC,but not hepatic veins. These findings could suggest right heart strain.Lymph nodes: No enlarged thoracic lymph nodes.Mediastinum: Small sliding hiatal hernia. Small Morgagni hernia witheventration of fat.Thoracic spine and chest wall: No suspicious or aggressive osseous lesion. Other Lines/Tubes/Devices/Hardware: NoneVisualized upper abdomen: A gastric band is in place at the level justbelow the GE junction. Hepatomegaly. Decreased attenuation of the liversuggestive of hepatic steatosis. IMPRESSIONSaddle pulmonary embolus extending into the bilateral interlobular,segmental and subsegmental pulmonary arteries of the right upper, middleand lower lobes as well as the left upper and lower lobe, likelyacute-subacute.CT findings suggestive of right heart strain and/or pulmonary arterialhypertension. Recommend correlation with echocardiogram.Right thyroid lobe 2.0 cm hypodense nodule. Recommend correlation withthyroid ultrasound as outpatient.Hepatomegaly. Gastric banding with small hiatal hernia.Findings relayed to Dr. Blanco on 10/23/2019 at 12:53 PM via telephone. Preliminary Report Dictated by Resident: Jacoby Arredondo MD., have reviewed this study and agree with the abovereport.[facility] CenterPONY GLUCOSE (AUTOMATED) 2019-10-23 16:46:00 Test Item Value Reference Range Interpretation Comments POCT GLU (test code = 9828736383) 148 mg/dL 70-110 H Lab Interpretation (test code = Abnormal 83162-6) [facility] ABDOMEN PELVIS W [id number] 15:20:31*Due to large patient body habitus, portions of the abdomen and pelvisextend outside the samfk-pi-xhdw, including portions of the peritonealcavity in the anterior right abdomen. 1. ?No acute abnormality identified in the abdomen or pelvis. 2. ?Similar appearance of pulmonary emboli at lung bases as compared torecent CTA (10/20/2019) from outside facility. 3. ?Lap band present. 4. ?Hepatomegaly. 5. ?Mild splenomegaly.EXAM: CT ABDOMEN PELVIS W CONTRAST HISTORY: 39 year -old woman with generalized acuteabdominal pain. TECHNIQUE: Contrast - IV contrast was given, no oral contrast was given Portal venous phase - abdomen and pelvisReconstructions - coronal and sagittal planes COMPARISON: CT chest, 10/20/2019 and 08/14/2019 FINDINGS:Statements: Portions of the patient's abdomen, including portions of theright anterior peritoneal cavity, extend outside the dfmcd-rl-xekd due tolarge patient body habitus. This also creates significant streak artifact,limiting in particular evaluation of the liver. Thoracic: Pulmonary emboli are again visualized at the lung bases, similarin distribution to comparison CT [facility] Hepatobiliary: Limited evaluation due to artifa ct. Liver is enlargedmeasuring 23 cm in length. No focal lesion detected. Gallbladder iscontracted. No biliary dilation. Pancreas: No abnormality identified in the pancreas. Spleen: Mild splenomegaly, measuring up to 14.5 cm. Adrenals: No abnormality identified in either adrenal gland. Genitourinary: Symmetric enhancement. Mild distention of both renal pelves.The right kidney is rotated in a horizontal plane, possibly due to theenlarged adjacent liver. The bladder is unremarkable. Uterus appearstethered to the anterior abdominal wall, likely sequela of prior surgery,and is otherwise unremarkable. No adnexal mass. Gastrointestinal: Lap band present with cord at right of midline in theupper abdomen, partially visualized. No evidence of bowel obstruction orperienteric inflammation. Vascular/Lymphatics: No enlarged lymph nodes by CT size criteria. Abdominalaorta is normal in caliber. MSK/Body Wall:No concerning bony lesion identified. Peritoneum/Other: No extraluminal air. No extraluminal fluid. [facility], Radiant Results Inft User - 10/23/2019 10:21 AM CDTEXAM: CT ABDOMEN PELVIS W CONTRASTHISTORY: 39 year -old woman with generalized acute abdominal pain.TECHNIQUE: Contrast - IV contrast was given, no oral contrast was given Portal venous phase - abdomen and pelvisReconstructions - coronal and sagittal planesCOMPARISON: CT chest, 10/20/2019 and 08/14/2019FINDINGS:Statements: Portions of the patient's abdomen, including portions of theright anterior peritoneal cavity, extend outside the vvzbs-aw-gkoo due tolarge patient body habitus. This also creates significant streak artifact,limiting in particular evaluation of the liver.Thoracic: Pulmonary emboli are again visualized at the lung bases, similarin distribution to comparison CT a chest examination from 10/20/[address] [facility].Hepatobiliary: Limited evaluation due to artifact. Liver is enlargedmeasuring 23 cm in length. No focal lesion detected. Gallbladder iscontracted. No biliary dilation.Pancreas: No abnormality identified in the pancreas.Spleen: Mild splenomegaly, measuring up to 14.5 cm. Adrenals: No abnormality identified in either adrenal gland. Genitourinary: Symmetric enhancement. Mild distention of both renal pelves.The right kidney is rotated in a horizontal plane, possibly due to theenlarged adjacent liver. The bladder is unremarkable. Uterus appearstethered to the anterior abdominal wall, likely sequela of prior surgery,and is otherwise unremarkable. No adnexal mass.Gastrointestinal: Lap band present with cord at rightof midline in theupper abdomen, partially visualized. No evidence of bowel obstruction orperienteric inflammation. Vascular/Lymphatics: No enlarged lymph nodes by CT size criteria. Abdominalaorta is normal in caliber.MSK/Body Wall: No concerning bony lesion identified.Peritoneum/Other: No extraluminalair. No extraluminal fluid.IMPRESSION*Due to large patient body habitus, portions of the abdomen and pelvisextend outside the xhfnk-us-thge, including portions of the peritonealcavity in the anterior right abdomen.1. No acute abnormality identified in the abdomen or pelvis.2. Similar appearance of pulmonary emboli at lung bases as compared torecent CTA (10/20/2019) from outside facility.3. Lap band present.4. Hepatomegaly.5. Mild splenomegaly.[facility] CenterP[facility] GLUCO[facility] (AUTOMATED)2019-10-23 13:18:00 Test Item Value Reference Range Interpretation Comments POCT GLU (test code = 0222375030) 106 mg/dL 70-110 Lab Interpretation (test code = Normal 35633-5) [facility] CenterBAC METABOLIC PANEL (NA, K, CL, CO2, GLUCOSE, BUN, CREATININE, CA)2019-10-23 10:35:00 Test Item Value Reference Range Interpretation Comments NA (test code = 136 mmol/L 135-145 1050703902) K (test code = 4.6 mmol/L 3.5-5 2604192677) CL (test code = 102 mmol/L 98-108 6242707007) CO2 TOTAL (test code = 28 mmol/L 23-31 7809043354) AGAP (test code = 2-16 7882424784) BUN (test code = 11 mg/dL 7-23 4535963203) GLUCOSE (test code = 113 mg/dL 70-110 H 6956089966) CREATININE (test code = 0.57 mg/dL 0.5-1.04 8918914553) CALCIUM (test code = 8.4 mg/dL 8.6-10.6 L 4200250426) eGFR Calculation mL/min/1.73m2 (Non-) (test code = 8579464014) eGFR Calculation mL/min/1.73m2 () (test code = 5438833495) LAKESHIA (test code = LAKESHIA) Association of Glomerular Filtration Rate (GFR) and Staging of Kidney Disease* + --+ --+ ------+| GFR (mL/min/1.73 m2) ?| With Kidney Damage ?| ?Without Kidney Damage+ --------+ --------+ +| ?>90 ?| ?Stage one ?| ? Normal ?+ ---+ ---+ -------+| ?60-89 ?| ?Stage two ?| ? Decreased GFR ? + --+ --+ ------+| ?30-59 ?| ?Stage three ?| ? Stage three ? + --+ --+ ------+| ?15-29 ?| ?Stage four ? | ? Stage four ?+ ---+ ---+ -------+| ?<15 (or dialysis) ? ?| ?Stage five ? | ? Stage five ?+ ---+ ---+ -------+ *Each stage assumes the associated GFR level has been in effect for at least three months. ?Stages 1 to 5, with or without kidney disease, indicate chronic kidney disease. Notes: Determination of stages one and two (with eGFR >59mL/min/1.73 m2) requires estimation of kidney damage for at least three months as defined by structural or functional abnormalities of the kidney, manifested by either:Pathological abnormalities or Markers of kidney damage (including abnormalities in the composition of the blood or urine or abnormalities in imaging tests). Lab Interpretation Abnormal (test code = 26542-7) [facility] Test Item Value Reference Range Interpretation Comments APTT Patient (test code = See_Comment [ Automated message] 3173-2) The system [employer] generated this result transmitted ref erence range: 26 - 36 Seconds. The re ference range was not u sed to interpret this result as normal/abnor mal. Lab Interpretation (test Normal code = 86116-7) [facility]PROT[facility] / [id number] 10:18:00 Test Item Value Reference Range Interpretation Comments PROTIME PATIENT (test See_Comment H [Auto mated message] code = 5964-2) The system wh ich generated this result transmitted ref erence range: 10.1 - 1 2.6 Seconds. The reference range was not used to int erpret this result as normal/abnormal . INR (test code = 6301-6) Nor mal INR <1.1; Warfarin Therap eutic range 2.0 to 3. 0 or 2.5 to 3.5, dep ending upon the indica tions. Lab Interpretation (test Abnormal code = 04105-6) [facility] WITH [id number] 10:09:00 Test Item Value Reference Range Interpretation Comments WBC (test code = See_Comment [Automated 6690-2) message] The sy stem which generated this result transmitted reference range : 4.30 - 11.10 10*3/?L. The reference range was not used to interpret this result as normal/abnormal . RBC (test code = See_Comment L [Automated 959-8) message] The sy stem which generated this result transmitted reference range : 3.93 - 5.25 10*6/?L. The reference range was not used to interpret this result as normal/abnormal . HGB (test code = 11.1 g/dL 11.6-15 L 718-7) HCT (test code = 33.8 % 35.7-45.2 L 4544-3) MCV (test code = 88.7 fL 80.6-95.5 787-2) MCH (test code = 29.1 pg 25.9-32.8 785-6) MCHC (test code = 32.8 g/dL 31.6-35.1 786-4) RDW-SD (test code = 45.1 fL 39-49.9 21562-8) RDW-CV (test code = 13.9 % 12-15.5 788-0) PLT (test code = See_Comment [Automated 777-3) message] The sy stem which generated this result transmitted reference range : 166 - 358 10*3/ ?L. The reference r alee was not used to interpret this result as normal/abnormal . MPV (test code = 10.3 fL 9.5-12.9 13979-7) NRBC/100 WBC (test See_Comment [Automat ed code = 7660538959) message] The system which generated this result transmitted reference range : 0.0 - 10.0 /100 WBCs. The refer ence range was not u sed to interpret th is result as normal/abnormal . NRBC x10^3 (test code <0.01 See_Comment [Auto mated = 8122114680) message] The s ystem which generated this result transmitted reference range : 10*3/?L. The reference range was not used to interpret this result as normal/abnormal . GRAN MAT (NEUT) % 48.5 % (test code = 770-8) IMM GRAN % (test code 0.40 % = 9183862947) LYMPH % (test code = 37.9 % 736-9) MONO % (test code = 5.9 % 5905-5) EOS % (test code = 6.6 % 713-8) BASO % (test code = 0.7 % 706-2) GRAN MAT x10^3(ANC) 2.63 10*3/uL 1.88-7.09 (test code = 9531864607) IMM GRAN x10^3 (test <0.03 0-0.06 code = 6691561245) LYMPH x10^3 (test code 2.06 10*3/uL 1.32-3.29 = 731-0) MONO x10^3 (test code 0.32 10*3/uL 0.33-0.92 L = 742-7) EOS x10^3 (test code = 0.36 10*3/uL 0.03-0.39 711-2) BASO x10^3 (test code 0.04 10*3/uL 0.01-0.07 = 704-7) Lab Interpretation Abnormal (test code = 26579-5) [facility] 01:50:00 Test Item Value Reference Range Interpretation Comments POCT GLU (test code = 2318424389) 135 mg/dL 70-110 H Lab Interpretation (test code = Abnormal 46350-2) [facility]2019-10-22 22:01:00 Test Item Value Reference Range Interpretation Comments POCT GLU (test code = 4093454454) 115 mg/dL 70-110 H Lab Interpretation (test code = Abnormal 38548-8) [facility] METABOLIC PANEL (NA, K, CL, CO2, GLUCOSE, BUN, CREATININE, CA)2019-10-22 17:32:00 Test Item Value Reference Range Interpretation Comments NA (test code = 135 mmol/L 135-145 8183137255) K (test code = 3.9 mmol/L 3.5-5 0176382832) CL (test code = 103 mmol/L 98-108 4294845858) CO2 TOTAL (test code = 25 mmol/L 23-31 4376675671) AGAP (test code = 2-16 2446975514) BUN (test code = 13 mg/dL 7-23 9584486528) GLUCOSE (test code = 170 mg/dL 70-110 H 1591131945) CREATININE (test code = 0.62 mg/dL 0.5-1.04 3851158476) CALCIUM (test code = 9.1 mg/dL 8.6-10.6 5287559130) eGFR Calculation mL/min/1.73m2 (Non-) (test code = 9176485106) eGFR Calculation mL/min/1.73m2 () (test code = 5625153955) LAKESHIA (test code = LAKESHIA) Association of Glomerular Filtration Rate (GFR) and Staging of Kidney Disease* + --+ --+ ------+| GFR (mL/min/1.73 m2) ?| With Kidney Damage ?| ?Without Kidney Damage+ --------+ --------+ +| ?>90 ?| ?Stage one ?| ? Normal ?+ ---+ ---+ -------+| ?60-89 ?| ?Stage two ?| ? Decreased GFR ? + --+ --+ ------+| ?30-59 ?| ?Stage three ?| ? Stage three ? + --+ --+ ------+| ?15-29 ?| ?Stage four ? | ? Stage four ?+ ---+ ---+ -------+| ?<15 (or dialysis) ? ?| ?Stage five ? | ? Stage five ?+ ---+ ---+ -------+ *Each stage assumes the associated GFR level has been in effect for at least three months. ?Stages 1 to 5, with or without kidney disease, indicate chronic kidney disease. Notes: Determination of stages one and two (with eGFR >59mL/min/1.73 m2) requires estimation of kidney damage for at least three months as defined by structural or functional abnormalities of the kidney, manifested by either:Pathological abnormalities or Markers of kidney damage (including abnormalities in the composition of the blood or urine or abnormalities in imaging tests). Lab Interpretation Abnormal (test code = 42547-6) [facility] 17:17:00 Test Item Value Reference Range Interpretation Comments APTT Patient (test code = See_Comment [ Automated message] 3173-2) The system [employer] generated this result transmitted ref erence range: 26 - 36 Seconds. The re ference range was not u sed to interpret this result as normal/abnor mal. Lab Interpretation (test Normal code = 22579-0) [facility] CenterPROT[facility] / [id number] 17:17:00 Test Item Value Reference Range Interpretation Comments PROTIME PATIENT (test See_Comment H [Auto mated message] code = 5964-2) The system [employer] generated this result transmitted ref erence range: 10.1 - 1 2.6 Seconds. The reference range was not used to int erpret this result as normal/abnormal . INR (test code = 6301-6) Nor mal INR <1.1; Warfarin Therap eutic range 2.0 to 3. 0 or 2.5 to 3.5, dep ending upon the indica tions. Lab Interpretation (test Abnormal code = 10655-1) [facility] WITH [id number] 17:09:00 Test Item Value Reference Range Interpretation Comments WBC (test code = See_Comment [Automated message] 6690-2) The system [employer] generated this result transmitted ref erence range: 4.30 - 1 1.10 10*3/?L. The re ference range was not u sed to interpret this result as normal/abnor mal. RBC (test code = See_Comment [Automated message] 789-8) The system [employer] generated this result transmitted ref erence range: 3.93 - 5 .25 10*6/?L. The re ference range was not u sed to interpret this result as normal/abnor mal. HGB (test code = 11.7 g/dL 11.6-15 718-7) HCT (test code = 35.9 % 35.7-45.2 4544-3) MCV (test code = 86.9 fL 80.6-95.5 787-2) MCH (test code = 28.3 pg 25.9-32.8 785-6) MCHC (test code = 32.6 g/dL 31.6-35.1 786-4) RDW-SD (test code 43.8 fL 39-49.9 = 58986-2) RDW-CV (test code 13.8 % 12-15.5 = 788-0) PLT (test code = See_Comment [Automated message] 777-3) The system [employer] generated this result transmitted ref erence range: 166 - 35 8 10*3/?L. The re ference range was not u sed to interpret this result as normal/abnor mal. MPV (test code = 9.8 fL 9.5-12.9 14715-6) NRBC/100 WBC (test See_Comment [Automat ed message] code = 1299775477) The syste m which generated this result transmitted ref erence range: 0.0 - 10 .0 /100 WBCs. The refer ence range was not u sed to interpret this result as normal/abnor mal. NRBC x10^3 (test <0.01 See_Comment [Automated message] code = 5912480259) The syste m which generated this result transmitted ref erence range: 10*3/?L. The reference range was not used to interpr et this result as normal/abnormal . GRAN MAT (NEUT) % 54.4 % (test code = 770-8) IMM GRAN % (test 0.30 % code = 0206815175) LYMPH % (test code 32.8 % = 736-9) MONO % (test code 5.8 % = 5905-5) EOS % (test code = 6.0 % 713-8) BASO % (test code 0.7 % = 706-2) GRAN MAT 3.16 10*3/uL 1.88-7.09 x10^3(ANC) (test code = 7720967167) IMM GRAN x10^3 <0.03 0-0.06 (test code = 9255610640) LYMPH x10^3 (test 1.91 10*3/uL 1.32-3.29 code = 731-0) MONO x10^3 (test 0.34 10*3/uL 0.33-0.92 code = 742-7) EOS x10^3 (test 0.35 10*3/uL 0.03-0.39 code = 711-2) BASO x10^3 (test 0.04 10*3/uL 0.01-0.07 code = 704-7) [facility] GLUCOSE (AUTOMATED)2019-10-22 16:38:00 Test Item Value Reference Range Interpretation Comments POCT GLU (test code = 8853603917) 189 mg/dL 70-110 H Lab Interpretation (test code = Abnormal 60352-1) [facility] GLUCOSE (AUTOMATED)2019-10-22 13:30:00 Test Item Value Reference Range Interpretation Comments POCT GLU (test code = 6577848907) 116 mg/dL 70-110 H Lab Interpretation (test code = Abnormal 90443-4) [facility] GLUCOSE (AUTOMATED)2019-10-22 01:25:00 Test Item Value Reference Range Interpretation Comments POCT GLU (test code = 5267978377) 159 mg/dL 70-110 H Lab Interpretation (test code = Abnormal 29475-3) [facility] CenterTR[facility] [id number] 01:07:00 Test Item Value Reference Range Interpretation Comments TROPONIN I (test 0.004 ng/mL See_Comment [Automated code = 8452078757) message] The system which generated this result transmitted reference range : <=0.034. The reference range was not used to interpret this result as normal/abnormal . LAKESHIA (test code = Equal or Less than LAKESHIA) 0.034 ng/ml---Normal ?Note: Cardiac troponin begins to rise 3-4 hours after the onset of ischemia. Repeat in 4-6 hours if the sample was drawn within 3-4 hours of the onset of the symptom and found normal. Between 0.035 and 0.120 ng/mL--- Borderline. Questionable myocardial injury or necrosis ? ?Note: Serial measurement may be necessary to confirm or exclude the diagnosis of myocardial injury or necrosis; Clinical correlation (symptoms, EKGs, imaging studies, and others) required; Repeat in 4-6 hours if clinically indicated. ? Equal or Higher than 0.121 ng/mL---Abnormal. Myocardial Injury or Necrosis Likely ? Biotin has been reported to cause a negative bias, interpret results relative to patient's use of biotin. ? Lab Interpretation Normal (test code = 26260-6) [facility] GLUCOSE (AUTOMATED)2019-10-21 22:36:00 Test Item Value Reference Range Interpretation Comments POCT GLU (test code = 5504458014) 106 mg/dL 70-110 Lab Interpretation (test code = Normal 15935-8) [facility] GLUCOSE (AUTOMATED)2019-10-21 18:34:00 Test Item Value Reference Range Interpretation Comments POCT GLU (test code = 7431523458) 161 mg/dL 70-110 H Lab Interpretation (test code = Abnormal 02018-0) [facility] GLUCOSE (AUTOMATED)2019-10-21 18:32:00 Test Item Value Reference Range Interpretation Comments POCT GLU (test code = 0892743064) 159 mg/dL 70-110 H Lab Interpretation (test code = Abnormal 22627-6) [facility] [id number] 17:56:00 Test Item Value Reference Range Interpretation Comments TROPONIN I (test 0.018 ng/mL See_Comment Hemolyzed code = 8107568409) specimen [Automated message] The system which generated this result transmitted reference range : <=0.034. The reference range was not used to interpret this result as normal/abnormal . LAKESHIA (test code = Equal or Less than LAKESHIA) 0.034 ng/ml---Normal ?Note: Cardiac troponin begins to rise 3-4 hours after the onset of ischemia. Repeat in 4-6 hours if the sample was drawn within 3-4 hours of the onset of the symptom and found normal. Between 0.035 and 0.120 ng/mL--- Borderline. Questionable myocardial injury or necrosis ? ?Note: Serial measurement may be necessary to confirm or exclude the diagnosis of myocardial injury or necrosis; Clinical correlation (symptoms, EKGs, imaging studies, and others) required; Repeat in 4-6 hours if clinically indicated. ? Equal or Higher than 0.121 ng/mL---Abnormal. Myocardial Injury or Necrosis Likely ? Biotin has been reported to cause a negative bias, interpret results relative to patient's use of biotin. ? Lab Interpretation Normal (test code = 54571-3) [facility] CenterMagnesium [id number] 10:10:00 Test Item Value Reference Range Interpretation Comments MAGNESIUM (test code = 0838399790) 1.8 mg/dL 1.7-2.4 Lab Interpretation (test code = Normal 66451-0) [facility] (NA, K, CL, CO2, GLUCOSE, BUN, CREATININE, CA)2019-10-21 10:10:00 Test Item Value Reference Range Interpretation Comments NA (test code = 138 mmol/L 135-145 7523021018) K (test code = 4.4 mmol/L 3.5-5 1066785017) CL (test code = 105 mmol/L 98-108 0013081065) CO2 TOTAL (test code = 25 mmol/L 23-31 3101938811) AGAP (test code = 2-16 1365161952) BUN (test code = 12 mg/dL 7-23 4164717975) GLUCOSE (test code = 124 mg/dL 70-110 H 1916949129) CREATININE (test code = 0.60 mg/dL 0.5-1.04 4328597084) CALCIUM (test code = 8.7 mg/dL 8.6-10.6 6192611355) eGFR Calculation mL/min/1.73m2 (Non-) (test code = 2524253642) eGFR Calculation mL/min/1.73m2 () (test code = 3504786686) LAKESHIA (test code = LAKESHIA) Association of Glomerular Filtration Rate (GFR) and Staging of Kidney Disease* + --+ --+ ------+| GFR (mL/min/1.73 m2) ?| With Kidney Damage ?| ?Without Kidney Damage+ --------+ --------+ +| ?>90 ?| ?Stage one ?| ? Normal ?+ ---+ ---+ -------+| ?60-89 ?| ?Stage two ?| ? Decreased GFR ? + --+ --+ ------+| ?30-59 ?| ?Stage three ?| ? Stage three ? + --+ --+ ------+| ?15-29 ?| ?Stage four ? | ? Stage four ?+ ---+ ---+ -------+| ?<15 (or dialysis) ? ?| ?Stage five ? | ? Stage five ?+ ---+ ---+ -------+ *Each stage assumes the associated GFR level has been in effect for at least three months. ?Stages 1 to 5, with or without kidney disease, indicate chronic kidney disease. Notes: Determination of stages one and two (with eGFR >59mL/min/1.73 m2) requires estimation of kidney damage for at least three months as defined by structural or functional abnormalities of the kidney, manifested by either:Pathological abnormalities or Markers of kidney damage (including abnormalities in the composition of the blood or urine or abnormalities in imaging tests). Lab Interpretation Abnormal (test code = 69111-1) [facility] 10:05:00 Test Item Value Reference Range Interpretation Comments APTT Patient (test code = See_Comment [ Automated message] 3173-2) The system [employer] generated this result transmitted ref erence range: 26 - 36 Seconds. The re ference range was not u sed to interpret this result as normal/abnor mal. Lab Interpretation (test Normal code = 77892-1) [facility] CenterPROTHROMBIN TIME / [id number] 10:05:00 Test Item Value Reference Range Interpretation Comments PROTIME PATIENT (test See_Comment H [Auto mated message] code = 5964-2) The system wh ich generated this result transmitted ref erence range: 10.1 - 1 2.6 Seconds. The reference range was not used to int erpret this result as normal/abnormal . INR (test code = 6301-6) Nor mal INR <1.1; Warfarin Therap eutic range 2.0 to 3. 0 or 2.5 to 3.5, dep ending upon the indica tions. Lab Interpretation (test Abnormal code = 21357-4) [facility] WITH [id number] 09:56:00 Test Item Value Reference Range Interpretation Comments WBC (test code = See_Comment [Automated 0590-2) message] The sy stem which generated this result transmitted reference range : 4.30 - 11.10 10*3/?L. The reference range was not used to interpret this result as normal/abnormal . RBC (test code = See_Comment [Automated 009-8) message] The sy stem which generated this result transmitted reference range : 3.93 - 5.25 10*6/?L. The reference range was not used to interpret this result as normal/abnormal . HGB (test code = 11.8 g/dL 11.6-15 718-7) HCT (test code = 35.5 % 35.7-45.2 L 4544-3) MCV (test code = 87.9 fL 80.6-95.5 787-2) MCH (test code = 29.2 pg 25.9-32.8 785-6) MCHC (test code = 33.2 g/dL 31.6-35.1 786-4) RDW-SD (test code = 44.4 fL 39-49.9 49093-2) RDW-CV (test code = 13.8 % 12-15.5 788-0) PLT (test code = See_Comment [Automated 777-3) message] The sy stem which generated this result transmitted reference range : 166 - 358 10*3/ ?L. The reference r alee was not used to interpret this result as normal/abnormal . MPV (test code = 9.8 fL 9.5-12.9 99640-6) NRBC/100 WBC (test See_Comment [Automat ed code = 2734881849) message] The system which generated this result transmitted reference range : 0.0 - 10.0 /100 WBCs. The refer ence range was not u sed to interpret th is result as normal/abnormal . NRBC x10^3 (test code <0.01 See_Comment [Auto mated = 8665812372) message] The s ystem which generated this result transmitted reference range : 10*3/?L. The reference range was not used to interpret this result as normal/abnormal . GRAN MAT (NEUT) % 46.4 % (test code = 770-8) IMM GRAN % (test code 0.40 % = 1262200373) LYMPH % (test code = 37.8 % 736-9) MONO % (test code = 7.7 % 5905-5) EOS % (test code = 7.0 % 713-8) BASO % (test code = 0.7 % 706-2) GRAN MAT x10^3(ANC) 2.52 10*3/uL 1.88-7.09 (test code = 2878974702) IMM GRAN x10^3 (test <0.03 0-0.06 code = 4610371046) LYMPH x10^3 (test code 2.05 10*3/uL 1.32-3.29 = 731-0) MONO x10^3 (test code 0.42 10*3/uL 0.33-0.92 = 742-7) EOS x10^3 (test code = 0.38 10*3/uL 0.03-0.39 711-2) BASO x10^3 (test code 0.04 10*3/uL 0.01-0.07 = 704-7) Lab Interpretation Abnormal (test code = 61768-3) [facility] GLUCOSE (AUTOMATED)2019-10-21 03:16:00 Test Item Value Reference Range Interpretation Comments POCT GLU (test code = 5272941824) 108 mg/dL 70-110 Lab Interpretation (test code = Normal 52598-9) [facility] GLUCOSE (AUTOMATED)2019-10-20 22:36:00 Test Item Value Reference Range Interpretation Comments POCT GLU (test code = 2658898722) 141 mg/dL 70-110 H Lab Interpretation (test code = Abnormal 95850-2) [facility] [id number] 21:48:00 Test Item Value Reference Range Interpretation Comments TROPONIN I (test 0.004 ng/mL See_Comment [Automated code = 8205068766) message] The system which generated this result transmitted reference range : <=0.034. The reference range was not used to interpret this result as normal/abnormal . LAKESHIA (test code = Equal or Less than LAKESHIA) 0.034 ng/ml---Normal ?Note: Cardiac troponin begins to rise 3-4 hours after the onset of ischemia. Repeat in 4-6 hours if the sample was drawn within 3-4 hours of the onset of the symptom and found normal. Between 0.035 and 0.120 ng/mL--- Borderline. Questionable myocardial injury or necrosis ? ?Note: Serial measurement may be necessary to confirm or exclude the diagnosis of myocardial injury or necrosis; Clinical correlation (symptoms, EKGs, imaging studies, and others) required; Repeat in 4-6 hours if clinically indicated. ? Equal or Higher than 0.121 ng/mL---Abnormal. Myocardial Injury or Necrosis Likely ? Biotin has been reported to cause a negative bias, interpret results relative to patient's use of biotin. ? Lab Interpretation Normal (test code = 97161-7) [facility]2019-[facility]20 19:50:00 Test Item Value Reference Range Interpretation Comments POCT GLU (test code = 1722113962) 288 mg/dL 70-110 H Lab Interpretation (test code = Abnormal 95894-1) [facility] Center[facility]OVID[facility] (ID NOW RAPID TESTING)2019-10-20 14:42:00 Test Item Value Reference Range Interpretation Comments SARS-CoV-2 Rapid ID NOW Not Detected Not Detected (test code = 49198-2) LAKESHIA (test code = LAKESHIA) ID NOW COVID-19 Assay is an isothermal nucleic acid amplification test intended for the qualitative detection of nucleic acid from SARS-CoV-2 viral RNA in nasopharyngeal (VISITOR SERVICES TECHNICIAN) specimens. It is used under Emergency Use Authorization (EUA) by FDA. The limit of detection (LOD) of the assay is 125 Genome Equivalents/mL. A positive result is indicative of the presence of SARS-CoV-2 RNA. ?Clinical correlation with patient history and other diagnostic [...] for repeat patient testing if clinically indicated. Lab Interpretation Normal (test code = 90334-9) [facility] METABOLIC PANEL (NA, K, CL, CO2, GLUCOSE, BUN, CREATININE, CA)2019-10-20 14:30:00 Test Item Value Reference Range Interpretation Comments NA (test code = 136 mmol/L 135-145 6813042342) K (test code = 3.9 mmol/L 3.5-5 6400460004) CL (test code = 105 mmol/L 98-108 5383434830) CO2 TOTAL (test code = 21 mmol/L 23-31 L 0745812133) AGAP (test code = 2-16 0790309141) BUN (test code = 13 mg/dL 7-23 3666323234) GLUCOSE (test code = 125 mg/dL 70-110 H 5994048348) CREATININE (test code = 0.67 mg/dL 0.5-1.04 9152943253) CALCIUM (test code = 8.7 mg/dL 8.6-10.6 8901123558) eGFR Calculation mL/min/1.73m2 (Non-) (test code = 1301672801) eGFR Calculation mL/min/1.73m2 () (test code = 6690900944) LAKESHIA (test code = LAKESHIA) Association of Glomerular Filtration Rate (GFR) and Staging of Kidney Disease* + --+ --+ ------+| GFR (mL/min/1.73 m2) ?| With Kidney Damage ?| ?Without Kidney Damage+ --------+ --------+ +| ?>90 ?| ?Stage one ?| ? Normal ?+ ---+ ---+ -------+| ?60-89 ?| ?Stage two ?| ? Decreased GFR ? + --+ --+ ------+| ?30-59 ?| ?Stage three ?| ? Stage three ? + --+ --+ ------+| ?15-29 ?| ?Stage four ? | ? Stage four ?+ ---+ ---+ -------+| ?<15 (or dialysis) ? ?| ?Stage five ? | ? Stage five ?+ ---+ ---+ -------+ *Each stage assumes the associated GFR level has been in effect for at least three months. ?Stages 1 to 5, with or without kidney disease, indicate chronic kidney disease. Notes: Determination of stages one and two (with eGFR >59mL/min/1.73 m2) requires estimation of kidney damage for at least three months as defined by structural or functional abnormalities of the kidney, manifested by either:Pathological abnormalities or Markers of kidney damage (including abnormalities in the composition of the blood or urine or abnormalities in imaging tests). Lab Interpretation Abnormal (test code = 40424-5) [facility] CenterPhosph[facility] [id number] 14:30:00 Test Item Value Reference Range Interpretation Comments PHOSPHORUS (test code = 9427271904) 4.1 mg/dL 2.5-5 Lab Interpretation (test code = Normal 27050-9) [facility] CenterProth[facility]bin Time / [id number] 14:25:00 Test Item Value Reference Range Interpretation Comments PROTIME PATIENT (test See_Comment [Auto mated message] code = 5964-2) The system [employer] generated this result transmitted ref erence range: 10.1 - 1 2.6 Seconds. The re ference range was not u sed to interpret this result as normal/abnor mal. INR (test code = 6301-6) Nor mal INR <1.1; Warfarin Therap eutic range 2.0 to 3. 0 or 2.5 to 3.5, dep ending upon the indica tions. Lab Interpretation (test Normal code = 95600-3) [facility] 14:25:00 Test Item Value Reference Range Interpretation Comments APTT Patient (test code See_Comment H [Au tomated message] = 3173-2) The system [employer] generated this result transmitted ref erence range: 26 - 36 Seconds. The reference range was not used to int erpret this result as normal/abnormal . Lab Interpretation (test Abnormal code = 50021-5) [facility] WITH [id number] 14:09:00 Test Item Value Reference Range Interpretation Comments WBC (test code = See_Comment [Automated message] 6690-2) The system [employer] generated this result transmitted ref erence range: 4.30 - 1 1.10 10*3/?L. The re ference range was not u sed to interpret this result as normal/abnor mal. RBC (test code = See_Comment [Automated message] 789-8) The system [employer] generated this result transmitted ref erence range: 3.93 - 5 .25 10*6/?L. The re ference range was not u sed to interpret this result as normal/abnor mal. HGB (test code = 13.5 g/dL 11.6-15 718-7) HCT (test code = 41.3 % 35.7-45.2 4544-3) MCV (test code = 87.1 fL 80.6-95.5 787-2) MCH (test code = 28.5 pg 25.9-32.8 785-6) MCHC (test code = 32.7 g/dL 31.6-35.1 786-4) RDW-SD (test code 44.5 fL 39-49.9 = 98553-0) RDW-CV (test code 13.9 % 12-15.5 = 788-0) PLT (test code = See_Comment [Automated message] 777-3) The system [employer] generated this result transmitted ref erence range: 166 - 35 8 10*3/?L. The re ference range was not u sed to interpret this result as normal/abnor mal. MPV (test code = 9.9 fL 9.5-12.9 34807-6) NRBC/100 WBC (test See_Comment [Automat ed message] code = 5106981482) The [employer] which generated this result transmitted ref erence range: 0.0 - 10 .0 /100 WBCs. The refer ence range was not u sed to interpret this result as normal/abnor mal. NRBC x10^3 (test <0.01 See_Comment [Automated message] code = 4903619650) The syste m which generated this result transmitted ref erence range: 10*3/?L. The reference range was not used to interpr et this result as normal/abnormal . GRAN MAT (NEUT) % 44.1 % (test code = 770-8) IMM GRAN % (test 0.40 % code = 2978035022) LYMPH % (test code 43.4 % = 736-9) MONO % (test code 6.6 % = 5905-5) EOS % (test code = 5.0 % 713-8) BASO % (test code 0.5 % = 706-2) GRAN MAT 3.34 10*3/uL 1.88-7.09 x10^3(ANC) (test code = 5419237160) IMM GRAN x10^3 0.03 10*3/uL 0-0.06 (test code = 4628037167) LYMPH x10^3 (test 3.29 10*3/uL 1.32-3.29 code = 731-0) MONO x10^3 (test 0.50 10*3/uL 0.33-0.92 code = 742-7) EOS x10^3 (test 0.38 10*3/uL 0.03-0.39 code = 711-2) BASO x10^3 (test 0.04 10*3/uL 0.01-0.07 code = 704-7) [facility] Test Item Value Reference Range Interpretation Comments APPEARANCE (test code = Cloudy Clear A 1207901822) COLOR (test code = Yellow Yellow 8545854488) PH (test code = 4.8-8.0 1808536540) SP GRAVITY (test code = 1.003-1.030 8293647422) GLU U QUAL (test code = 500 mg/dL Normal A 5572721268) BLOOD (test code = Negative Negative 9722964922) KETONES (test code = Negative Negative 8009634629) PROTEIN (test code = 30 mg/dL Negative A 2887-8) UROBILIN (test code = Normal Normal 8695100289) BILIRUBIN (test code = Negative Negative 0396588094) NITRITE (test code = Negative Negative 3559265345) LEUK CORNELL (test code = Negative Negative 1962572505) RBC/HPF (test code = See_Comment [Autom ated message] 2646109612) The system [employer] generated this result transmit kenroy reference range : 0 - 3 HPF. The refe rence range was not u sed to interpret th is result as normal/abnormal . WBC/HPF (test code = See_Comment H [Autom ated message] 0494999948) The system [employer] generated this result transmit kenroy reference range : 0 - 5 HPF. The refe rence range was not u sed to interpret th is result as normal/abnormal . BACTERIA (test code = Moderate Negative A 9742429515) MUCOUS (test code = Slight Negative LPF A 9760840169) SQ EPITH (test code = HPF 4391290181) HYAL CAST (test code = See_Comment H [Aut omated message] 6679254478) The system [employer] generated this result transmit kenroy reference range : <=2 LPF. The refere nce range was not u sed to interpret th is result as normal/abnormal . Lab Interpretation (test Abnormal code = 32007-0) [facility] GLUCOSE (AUTOMATED)2019-08-16 14:08:00 Test Item Value Reference Range Interpretation Comments POCT GLU (test code = 7293336462) 137 mg/dL 70-110 H Lab Interpretation (test code = Abnormal 46208-1) [facility] Metabolic Panel (NA, K, CL, CO2, GLUCOSE, BUN, CREATININE, CA)2019-08-16 10:20:00 Test Item Value Reference Range Interpretation Comments NA (test code = 136 mmol/L 135-145 2094651574) K (test code = 4.2 mmol/L 3.5-5 8867766340) CL (test code = 104 mmol/L 98-108 0331161758) CO2 TOTAL (test code = 26 mmol/L 23-31 7627613441) AGAP (test code = 2-16 8014013956) BUN (test code = 10 mg/dL 7-23 9285229877) GLUCOSE (test code = 116 mg/dL 70-110 H 8387000899) CREATININE (test code = 0.63 mg/dL 0.5-1.04 2402362169) CALCIUM (test code = 9.0 mg/dL 8.6-10.6 9253973142) eGFR Calculation mL/min/1.73m2 (Non-) (test code = 4324235552) eGFR Calculation mL/min/1.73m2 () (test code = 7625291700) LAKESHIA (test code = LAKESHIA) Association of Glomerular Filtration Rate (GFR) and Staging of Kidney Disease* + --+ --+ ------+| GFR (mL/min/1.73 m2) ?| With Kidney Damage ?| ?Without Kidney Damage+ --------+ --------+ +| ?>90 ?| ?Stage one ?| ? Normal ?+ ---+ ---+ -------+| ?60-89 ?| ?Stage two ?| ? Decreased GFR ? + --+ --+ ------+| ?30-59 ?| ?Stage three ?| ? Stage three ? + --+ --+ ------+| ?15-29 ?| ?Stage four ? | ? Stage four ?+ ---+ ---+ -------+| ?<15 (or dialysis) ? ?| ?Stage five ? | ? Stage five ?+ ---+ ---+ -------+ *Each stage assumes the associated GFR level has been in effect for at least three months. ?Stages 1 to 5, with or without kidney disease, indicate chronic kidney disease. Notes: Determination of stages one and two (with eGFR >59mL/min/1.73 m2) requires estimation of kidney damage for at least three months as defined by structural or functional abnormalities of the kidney, manifested by either:Pathological abnormalities or Markers of kidney damage (including abnormalities in the composition of the blood or urine or abnormalities in imaging tests). Lab Interpretation Abnormal (test code = 01831-9) [facility] Center[facility] [id number] 10:20:00 Test Item Value Reference Range Interpretation Comments MAGNESIUM (test code = 9597024720) 1.8 mg/dL 1.7-2.4 Lab Interpretation (test code = Normal 61629-0) [facility] WITH [id number] 09:57:00 Test Item Value Reference Range Interpretation Comments WBC (test code = See_Comment [Automated 6690-2) message] The sy stem which generated this result transmitted reference range : 4.30 - 11.10 10*3/?L. The reference range was not used to interpret this result as normal/abnormal . RBC (test code = See_Comment [Automated 789-8) message] The sy stem which generated this result transmitted reference range : 3.93 - 5.25 10*6/?L. The reference range was not used to interpret this result as normal/abnormal . HGB (test code = 11.8 g/dL 11.6-15 718-7) HCT (test code = 35.7 % 35.7-45.2 4544-3) MCV (test code = 88.4 fL 80.6-95.5 787-2) MCH (test code = 29.2 pg 25.9-32.8 785-6) MCHC (test code = 33.1 g/dL 31.6-35.1 786-4) RDW-SD (test code = 42.5 fL 39-49.9 02689-8) RDW-CV (test code = 13.2 % 12-15.5 788-0) PLT (test code = See_Comment [Automated 777-3) message] The sy stem which generated this result transmitted reference range : 166 - 358 10*3/ ?L. The reference r alee was not used to interpret this result as normal/abnormal . MPV (test code = 9.5 fL 9.5-12.9 98178-1) NRBC/100 WBC (test See_Comment [Automat ed code = 1114789898) message] The system which generated this result transmitted reference range : 0.0 - 10.0 /100 WBCs. The refer ence range was not u sed to interpret th is result as normal/abnormal . NRBC x10^3 (test code <0.01 See_Comment [Auto mated = 0309524220) message] The s ystem which generated this result transmitted reference range : 10*3/?L. The reference range was not used to interpret this result as normal/abnormal . GRAN MAT (NEUT) % 56.1 % (test code = 770-8) IMM GRAN % (test code 0.20 % = 1420539355) LYMPH % (test code = 33.0 % 736-9) MONO % (test code = 6.1 % 5905-5) EOS % (test code = 4.2 % 713-8) BASO % (test code = 0.4 % 706-2) GRAN MAT x10^3(ANC) 2.65 10*3/uL 1.88-7.09 (test code = 1456050919) IMM GRAN x10^3 (test <0.03 0-0.06 code = 0743135637) LYMPH x10^3 (test code 1.56 10*3/uL 1.32-3.29 = 731-0) MONO x10^3 (test code 0.29 10*3/uL 0.33-0.92 L = 742-7) EOS x10^3 (test code = 0.20 10*3/uL 0.03-0.39 711-2) BASO x10^3 (test code <0.03 0.01-0.07 = 704-7) Lab Interpretation Abnormal (test code = 59423-2) [facility] Test Item Value Reference Range Interpretation Comments APTT Patient (test code See_Comment L [Au tomated message] = 3173-2) The system [employer] generated this result transmitted ref erence range: 26 - 36 Seconds. The reference range was not used to int erpret this result as normal/abnormal . Lab Interpretation (test Abnormal code = 69717-7) [facility] GLUCOSE (AUTOMATED)2019-08-16 01:41:00 Test Item Value Reference Range Interpretation Comments POCT GLU (test code = 8491796642) 127 mg/dL 70-110 H Lab Interpretation (test code = Abnormal 50632-2) [facility] GLUCOSE (AUTOMATED)2019-08-15 16:51:00 Test Item Value Reference Range Interpretation Comments POCT GLU (test code = 122 mg/dL 70-110 H Notifi ed Provider 7639502772) Lab Interpretation (test Abnormal code = 71361-0) [facility] CenterGlycosylated Hemoglobin (A1C)2019-08-15 13:39:00 Test Item Value Reference Range Interpretation Comments HGB A1C (test code = 4548-4) 5.9 % 4-6 Lab Interpretation (test code = Normal 40259-7) [facility]2019-08-15 12:22:00 Test Item Value Reference Range Interpretation Comments POCT GLU (test code = 112 mg/dL 70-110 H Notifi ed Provider 7299116464) Lab Interpretation (test Abnormal code = 79072-6) [facility] CenterThyroid Stimulating Hormone (TSH)2019-08-15 11:05:00 Test Item Value Reference Range Interpretation Comments TSH (test code = See_Comment [Automated message] 3419483022) The system [employer] generated this result transmitted ref erence range: 0.45 - 4 .70 mIU/L. The refe rence range was not u sed to interpret this result as normal/abnor mal. Lab Interpretation (test Normal code = 33132-0) [facility] Metabolic Panel (NA, K, CL, CO2, GLUCOSE, BUN, CREATININE, CA)2019-08-15 10:11:00 Test Item Value Reference Range Interpretation Comments NA (test code = 135 mmol/L 135-145 5970929375) K (test code = 4.4 mmol/L 3.5-5 1524006089) CL (test code = 103 mmol/L 98-108 0247942329) CO2 TOTAL (test code = 26 mmol/L 23-31 1363433079) AGAP (test code = 2-16 2162065311) BUN (test code = 15 mg/dL 7-23 7269491370) GLUCOSE (test code = 102 mg/dL 70-110 5885938203) CREATININE (test code 0.77 mg/dL 0.5-1.04 = 5441894891) CALCIUM (test code = 9.2 mg/dL 8.6-10.6 2761517977) eGFR Calculation mL/min/1.73m2 (Non-) (test code = 7521022359) eGFR Calculation mL/min/1.73m2 () (test code = 8929200879) LAKESHIA (test code = LAKESHIA) Association of Glomerular Filtration Rate (GFR) and Staging of Kidney Disease* + -+ + ---+| GFR (mL/min/1.73 m2) ?| With Kidney Damage ?| ?Without Kidney Damage+ -------+ ------+ ---------+| ?>90 ?| ?Stage one ?| ? Normal ?+ --+ -+ ----+| ?60-89 ?| ?Stage two ?| ? Decreased GFR ? + -+ + ---+| ?30-59 ?| ?Stage three ?| ? Stage three ? + -+ + ---+| ?15-29 ?| ?Stage four ? | ? Stage four ?+ --+ -+ ----+| ?<15 (or dialysis) ? ?| ?Stage five ? | ? Stage five ?+ --+ -+ ----+ *Each stage assumes the associated GFR level has been in effect for at least three months. ?Stages 1 to 5, with or without kidney disease, indicate chronic kidney disease. Notes: Determination of stages one and two (with eGFR >59mL/min/1.73 m2) requires estimation of kidney damage for at least three months as defined by structural or functional abnormalities of the kidney, manifested by either:Pathological abnormalities or Markers of kidney damage (including abnormalities in the composition of the blood or urine or abnormalities in imaging tests). [facility] CenterMagnesium [id number] 10:11:00 Test Item Value Reference Range Interpretation Comments MAGNESIUM (test code = 0104474516) 1.8 mg/dL 1.7-2.4 Lab Interpretation (test code = Normal 73536-9) [facility] CenterPhosphorus [id number] 10:11:00 Test Item Value Reference Range Interpretation Comments PHOSPHORUS (test code = 3714036062) 4.9 mg/dL 2.5-5 Lab Interpretation (test code = Normal 20307-8) [facility] CenterLipid Panel (Total Cholesterol, Triglycerides, HDL) - [id number] 10:11:00 Test Item Value Reference Range Interpretation Comments CHOL (test code = 243 mg/dL 120-200 H 0102766891) HDL (test code = 25 mg/dL >50 L 8326869348) HDLC RATIO (test code = See_Comment H [Au tomated message] 0107254981) The system [employer] generated this result transmit kenroy reference range : <=4.5. The refe rence range was not u sed to interpret th is result as normal/abnormal . TRIG (test code = 215 mg/dL 30-170 H 0977309711) LDL CHOL (test code = 175 mg/dL See_Comment H [Auto mated message] 02781-1) The system [employer] generated this result transmit kenryo reference range : <=160. The refe rence range was not u sed to interpret th is result as normal/abnormal . VLDL (test code = 43 mg/dL 5-60 6694085093) Lab Interpretation (test Abnormal code = 50045-4) [facility] (for use with Heparin Practice Guideline). Note: Draw and Send all Lab STAT.2019-08-15 10:04:00 Test Item Value Reference Range Interpretation Comments APTT Patient (test code See_Comment H [Au tomated message] = 3173-2) The system [employer] generated this result transmitted ref erence range: 26 - 36 Seconds. The reference range was not used to int erpret this result as normal/abnormal . Lab Interpretation (test Abnormal code = 44219-2) [facility] WITH [id number] 09:57:00 Test Item Value Reference Range Interpretation Comments WBC (test code = See_Comment [Automated message] 6690-2) The system [employer] generated this result transmitted ref erence range: 4.30 - 1 1.10 10*3/?L. The re ference range was not u sed to interpret this result as normal/abnor mal. RBC (test code = See_Comment [Automated message] 789-8) The system [employer] generated this result transmitted ref erence range: 3.93 - 5 .25 10*6/?L. The re ference range was not u sed to interpret this result as normal/abnor mal. HGB (test code = 12.3 g/dL 11.6-15 718-7) HCT (test code = 38.3 % 35.7-45.2 4544-3) MCV (test code = 90.1 fL 80.6-95.5 787-2) MCH (test code = 28.9 pg 25.9-32.8 785-6) MCHC (test code = 32.1 g/dL 31.6-35.1 786-4) RDW-SD (test code 43.8 fL 39-49.9 = 11059-4) RDW-CV (test code 13.3 % 12-15.5 = 788-0) PLT (test code = See_Comment [Automated message] 777-3) The system whic h generated this result transmitted ref erence range: 166 - 35 8 10*3/?L. The re ference range was not u sed to interpret this result as normal/abnor mal. MPV (test code = 9.7 fL 9.5-12.9 10102-7) NRBC/100 WBC (test See_Comment [Automat ed message] code = 0987663487) The syste m which generated this result transmitted ref erence range: 0.0 - 10 .0 /100 WBCs. The refer ence range was not u sed to interpret this result as normal/abnor mal. NRBC x10^3 (test <0.01 See_Comment [Automated message] code = 5329908266) The syste m which generated this result transmitted ref erence range: 10*3/?L. The reference range was not used to interpr et this result as normal/abnormal . GRAN MAT (NEUT) % 51.2 % (test code = 770-8) IMM GRAN % (test 0.30 % code = 2763137517) LYMPH % (test code 36.7 % = 736-9) MONO % (test code 7.1 % = 5905-5) EOS % (test code = 4.2 % 713-8) BASO % (test code 0.5 % = 706-2) GRAN MAT 3.74 10*3/uL 1.88-7.09 x10^3(ANC) (test code = 3923671073) IMM GRAN x10^3 <0.03 0-0.06 (test code = 3357621517) LYMPH x10^3 (test 2.68 10*3/uL 1.32-3.29 code = 731-0) MONO x10^3 (test 0.52 10*3/uL 0.33-0.92 code = 742-7) EOS x10^3 (test 0.31 10*3/uL 0.03-0.39 code = 711-2) BASO x10^3 (test 0.04 10*3/uL 0.01-0.07 code = 704-7) [facility] CenterTroponin [id number] 04:08:00 Test Item Value Reference Range Interpretation Comments TROPONIN I (test 0.004 ng/mL See_Comment [Automated code = 7713109815) message] The system which generated this result transmitted reference range : <=0.034. The reference range was not used to interpret this result as normal/abnormal . LAKESHIA (test code = Equal or Less than LAKESHIA) 0.034 ng/ml---Normal ?Note: Cardiac troponin begins to rise 3-4 hours after the onset of ischemia. Repeat in 4-6 hours if the sample was drawn within 3-4 hours of the onset of the symptom and found normal. Between 0.035 and 0.120 ng/mL--- Borderline. Questionable myocardial injury or necrosis ? ?Note: Serial measurement may be necessary to confirm or exclude the diagnosis of myocardial injury or necrosis; Clinical correlation (symptoms, EKGs, imaging studies, and others) required; Repeat in 4-6 hours if clinically indicated. ? Equal or Higher than 0.121 ng/mL---Abnormal. Myocardial Injury or Necrosis Likely ? Biotin has been reported to cause a negative bias, interpret results relative to patient's use of biotin. ? Lab Interpretation Normal (test code = 09458-4) [facility] CenterProthrombin Time / [id number] 03:49:00 Test Item Value Reference Range Interpretation Comments PROTIME PATIENT (test See_Comment [Auto mated message] code = 5964-2) The system [employer] generated this result transmitted ref erence range: 10.1 - 1 2.6 Seconds. The re ference range was not u sed to interpret this result as normal/abnor mal. INR (test code = 6301-6) Nor mal INR <1.1; Warfarin Therap eutic range 2.0 to 3. 0 or 2.5 to 3.5, dep ending upon the indica tions. Lab Interpretation (test Normal code = 98340-2) [facility] GLUCOSE (AUTOMATED)2019-08-15 03:32:00 Test Item Value Reference Range Interpretation Comments POCT GLU (test code = 2393445627) 111 mg/dL 70-110 H Lab Interpretation (test code = Abnormal 90186-7) [facility] GLUCOSE (AUTOMATED)2019-08-14 23:21:00 Test Item Value Reference Range Interpretation Comments POCT GLU (test code = 5681157421) 103 mg/dL 70-110 Lab Interpretation (test code = Normal 22583-0) [facility] CenterTROPONIN [id number] 22:34:00 Test Item Value Reference Range Interpretation Comments TROPONIN I (test <0.012 See_Comment [Automated code = 2344137843) message] The system which generated this result transmitted reference range : <=0.034 ng/mL. The reference range was not used to interpr et this result as normal/abnormal . LAKESHIA (test code = Equal or Less than LAKESHIA) 0.034 ng/ml---Normal ?Note: Cardiac troponin begins to rise 3-4 hours after the onset of ischemia. Repeat in 4-6 hours if the sample was drawn within 3-4 hours of the onset of the symptom and found normal. Between 0.035 and 0.120 ng/mL--- Borderline. Questionable myocardial injury or necrosis ? ?Note: Serial measurement may be necessary to confirm or exclude the diagnosis of myocardial injury or necrosis; Clinical correlation (symptoms, EKGs, imaging studies, and others) required; Repeat in 4-6 hours if clinically indicated. ? Equal or Higher than 0.121 ng/mL---Abnormal. Myocardial Injury or Necrosis Likely ? Biotin has been reported to cause a negative bias, interpret results relative to patient's use of biotin. ? Lab Interpretation Normal (test code = 02045-3) [facility] CHEST PULMONARY [id number] 20:21:52 No acute pulmonary embolism. There is nodular enlargement of the lower right thyroid suggesting anodule. Consider thyroid ultrasound for further evaluation. PreliminaryReport Dictated by Resident: David Glasgow ?MD Chung., have reviewed this study and agree with the abovereport.PROCEDURE: CT ANGIO CHEST WITH CONTRAST - PE PROTOCOL CLINICAL INDICATION: PE suspected, high pretest prob ? COMPARISON: Same day chest radiograph. TECHNIQUE: ?Helical CT was performed and reconstructed at 1.25 mm slicethickness from lung base to apices after the administrationof 120 mLOmnipaque-350 intravenous contrast, without complication. ?Display field ofview: 40 cm. FINDINGS: PULMONARY ARTERIES:Enhancement is adequate, and there is no acute or chronic pulmonaryembolism. CHEST:Lower neck/thyroid: Asymmetric enlargement of the lower right thyroid lobesuggests an underlying nodule. The left thyroid gland appears normal. Lungs/Pleura: Subsegmental atelectasis in the medial segment of the rightmiddle lobe and lingula. No parenchymal consolidations. Subcentimetercalcifiedgranuloma in the left upper lobe 4-5 mm pulmonary nodules alongthe right major fissure on 5:196 and left major fissure on 5:146, likely anintrafissural lymph nodes. No pleural thickening, pleural effusion or pneumothorax. Central airway: The central airways are patent. Mild bronchial wallthickening and scattered mucus plugging, particularly in the right upperand lower lobes. Thoracic aorta and great vessels: Normal in diameter. Heart and pericardium: No detectable coronary arterial calcification.Unre markable cardiac morphology and pericardium. Lymph nodes: No thoracic lymph nodes. Mediastinum: Circumferential mild thickening of the distal esophagus isnonspecific. Thoracic spine and chest wall: No suspicious or aggressive osseous lesion. Other Lines/Tubes/Devices/Hardware: None Visualized upper abd omen: A gastric band is noted just distal to thegastroesophageal junction. [facility], Radiant Results Inft User - 08/14/2019 3:23 PM CDTPROCEDURE: CT ANGIO CHEST WITH CONTRAST- PE PROTOCOLCLINICAL INDICATION: PE suspected, high pretest prob COMPARISON: Same day chest radiograph.TECHNIQUE: Helical CT was performed and reconstructed at 1.25 mm slicethickness from lung base toapices after the administration of 120 mLOmnipaque-350 intravenous contrast, without complication. Display field ofview: 40 cm.FINDINGS:PULMONARY ARTERIES:Enhancement is adequate, and there is no acuteor chronic pulmonaryembolism.CHEST:Lower neck/thyroid: Asymmetric enlargement of the lower right thyroid lobesuggests an underlying nodule. The left thyroid gland appears normal.Lungs/Pleura: Subsegmental atelectasis in the medial segment of the rightmiddle lobe and lingula. No parenchymal consolidatio ns. Subcentimetercalcified granuloma in the left upper lobe 4-5 mm pulmonary nodules alongthe right major fissure on 5:196 and left major fissure on 5:146, likely anintrafissural lymph nodes.No pleuralthickening, pleural effusion or pneumothorax.Central airway: The central airways are patent. Mild bronchial wallthickening and scattered mucus plugging, particularly in the right upperand lower lobes.Thoracic aorta and great vessels: Normal in diameter.Heart and pericardium: No detectable coronary arterial calcification.Unremarkable cardiac morphology and pericardium.Lymph nodes: No thoracic lymph nodes.Mediastinum: Circumferential mild thickening of the distal esophagus isnonspecific.Thoracic spineand chest wall: No suspicious or aggressive osseous lesion.Other Lines/Tubes/Devices/Hardware: NoneVisualized upper abdomen: A gastric band is noted just distal to thegastroesophageal junction. IMPRESSIONNo acute pulmonary embolism.There is nodular enlargement of the lower right thyroid suggesting anodule. Consider thyroid ultrasound for further evaluation. Preliminary Report Dictated by Resident: Zachariah Holbrook, David Wilkes MD., have reviewed this study and agree with the abovereport.[facility] / [facility] - DRUG SCREEN [id number] 18:49:00 Test Item Value Reference Range Interpretation Comments BENZO U (test code = Negative Negative 3040308169) CATARINO U (test code = Negative Negative 9295952197) AMPHET (test code = Negative Negative 0576296305) THC (test code = Presumptive Negative A Confirmatio n of 7186141926) Positive Presumptive Positive THC result requires physician order . METHADONE (test code Negative Negative = 7958095566) Meth U (test code = Negative Negative 9007120324) OPIATES (test code = Negative Negative 5479151930) Cocaine Metabolite Negative Negative (test code = 6492996866) PROPOXY (test code = Negative Negative 1697982188) Tric U (test code = Presumptive Negative A Confirma tion of 4997054870) Positive Presumptive Positive TCA result requires physician order and this will b e sent to referen ce lab. PCP (test code = Negative Negative 7147873544) OXYCOD (test code = Negative Negative 0729600120) LAKESHIA (test code = Urine Drug Cutoff LAKESHIA) Ranges Benzodiazepines: ? ? 150 ng/mLBarbiturates : ?200 ng/mLAmphetamine: ? 500 ng/mLCannabinoids : ?50 ?ng/mLMethadone: ? 200 ng/mLMethamphetam ine: ? ? 500 ng/mL Opiates: ? 100 ng/mL or 2000 ng/mLCocaine: ? 150 ng/mLPropoxyphene : ?300 ng/mLTricyclics: ?300 ng/mLOxycodone: ? 100 ng/mLPCP: ? 25 ?ng/mL The results are to be used only for medical (i.e., treatment) purposes. Unconfirmed screening results must not be used for non-medical purposes (e.g., employment testing, legal testing). Lab Interpretation Abnormal (test code = 97316-1) [facility] 18:31:00 Test Item Value Reference Range Interpretation Comments APPEARANCE (test code = Cloudy Clear A 6502534912) COLOR (test code = Rachel Yellow A 3496468971) PH (test code = 4.8-8.0 0242533591) SP GRAVITY (test code = 1.003-1.030 0874081117) GLU U QUAL (test code = Normal Normal 3313250048) BLOOD (test code = Negative Negative 8708326905) KETONES (test code = Negative Negative 4633772032) PROTEIN (test code = Negative Negative 2887-8) UROBILIN (test code = Normal Normal 6533612463) BILIRUBIN (test code = Negative Negative 3206601480) NITRITE (test code = Negative Negative 4536888662) LEUK CORNELL (test code = Negative Negative 9859117231) RBC/HPF (test code = See_Comment H [Autom ated message] 9482545980) The system [employer] generated this result transmitted ref erence range: 0 - 3 HP F. The reference range was not used to int erpret this result as normal/abnormal . WBC/HPF (test code = See_Comment H [Autom ated message] 1582431479) The system [employer] generated this result transmitted ref erence range: 0 - 5 HP F. The reference range was not used to int erpret this result as normal/abnormal . BACTERIA (test code = Few Negative A 8553558290) MUCOUS (test code = Moderate Negative LPF A 7585140816) SQ EPITH (test code = HPF 4818064707) HYAL CAST (test code = See_Comment H [Aut omated message] 5499836925) The system [employer] generated this result transmitted ref erence range: <=2 LPF. The reference range was not used to int erpret this result as normal/abnormal . Lab Interpretation (test Abnormal code = 01321-1) [facility] ([facility] NOW RAPID TESTING)2019-08-14 18:25:00 Test Item Value Reference Range Interpretation Comments SARS-CoV-2 Rapid ID NOW Not Detected Not Detected (test code = 10166-8) LAKESHIA (test code = LAKESHIA) ID NOW COVID-19 Assay is an isothermal nucleic acid amplification test intended for the qualitative detection of nucleic acid from SARS-CoV-2 viral RNA in nasopharyngeal (VISITOR SERVICES TECHNICIAN) specimens. It is used under Emergency Use Authorization (EUA) by FDA. The limit of detection (LOD) of the assay is 125 Genome Equivalents/mL. A positive result is indicative of the presence of SARS-CoV-2 RNA. ?Clinical correlation with patient history and other diagnostic [...] for repeat patient testing if clinically indicated. Lab Interpretation Normal (test code = 33745-0) [facility] WITH [id number] 17:57:00 Test Item Value Reference Range Interpretation Comments WBC (test code = See_Comment [Automated message] 9790-2) The system [employer] generated this result transmitted ref erence range: 4.30 - 1 1.10 10*3/?L. The re ference range was not u sed to interpret this result as normal/abnor mal. RBC (test code = See_Comment [Automated message] 579-8) The system [employer] generated this result transmitted ref erence range: 3.93 - 5 .25 10*6/?L. The re ference range was not u sed to interpret this result as normal/abnor mal. HGB (test code = 13.6 g/dL 11.6-15 718-7) HCT (test code = 40.9 % 35.7-45.2 4544-3) MCV (test code = 88.5 fL 80.6-95.5 787-2) MCH (test code = 29.4 pg 25.9-32.8 785-6) MCHC (test code = 33.3 g/dL 31.6-35.1 786-4) RDW-SD (test code 42.7 fL 39-49.9 = 41387-9) RDW-CV (test code 13.1 % 12-15.5 = 788-0) PLT (test code = See_Comment [Automated message] 797-3) The system [employer] generated this result transmitted ref erence range: 166 - 35 8 10*3/?L. The re ference range was not u sed to interpret this result as normal/abnor mal. MPV (test code = 9.7 fL 9.5-12.9 32631-9) NRBC/100 WBC (test See_Comment [Automat ed message] code = 1756981377) The [employer] which generated this result transmitted ref erence range: 0.0 - 10 .0 /100 WBCs. The refer ence range was not u sed to interpret this result as normal/abnor mal. NRBC x10^3 (test <0.01 See_Comment [Automated message] code = 8129108106) The syste m which generated this result transmitted ref erence range: 10*3/?L. The reference range was not used to interpr et this result as normal/abnormal . GRAN MAT (NEUT) % 59.0 % (test code = 770-8) IMM GRAN % (test 0.30 % code = 9019028266) LYMPH % (test code 31.8 % = 736-9) MONO % (test code 4.6 % = 5905-5) EOS % (test code = 3.6 % 713-8) BASO % (test code 0.7 % = 706-2) GRAN MAT 4.49 10*3/uL 1.88-7.09 x10^3(ANC) (test code = 0514946227) IMM GRAN x10^3 <0.03 0-0.06 (test code = 5507888147) LYMPH x10^3 (test 2.41 10*3/uL 1.32-3.29 code = 731-0) MONO x10^3 (test 0.35 10*3/uL 0.33-0.92 code = 742-7) EOS x10^3 (test 0.27 10*3/uL 0.03-0.39 code = 711-2) BASO x10^3 (test 0.05 10*3/uL 0.01-0.07 code = 704-7) [id number] 17:55:00 Test Item Value Reference Range Interpretation Comments TROPONIN I (test <0.012 See_Comment [Automated code = 5542781381) message] The system which generated this result transmitted reference range : <=0.034 ng/mL. The reference range was not used to interpr et this result as normal/abnormal . LAKESHIA (test code = Equal or Less than LAKESHIA) 0.034 ng/ml---Normal ?Note: Cardiac troponin begins to rise 3-4 hours after the onset of ischemia. Repeat in 4-6 hours if the sample was drawn within 3-4 hours of the onset of the symptom and found normal. Between 0.035 and 0.120 ng/mL--- Borderline. Questionable myocardial injury or necrosis ? ?Note: Serial measurement may be necessary to confirm or exclude the diagnosis of myocardial injury or necrosis; Clinical correlation (symptoms, EKGs, imaging studies, and others) required; Repeat in 4-6 hours if clinically indicated. ? Equal or Higher than 0.121 ng/mL---Abnormal. Myocardial Injury or Necrosis Likely ? Biotin has been reported to cause a negative bias, interpret results relative to patient's use of biotin. ? Lab Interpretation Normal (test code = 87301-4) [facility] Center[facility] CERV[facility]INE 3 [id number] 17:54:06 ?The C1-C5 are well evaluated on both frontal and lateral views. There aregrossly unremarkable. TheC6 and C7 levels are not well evaluated on thelateral view or swimmer's view. These can be further evaluated eitherclinically or with CT scan. Location code: RL: 4700 EXAM: ?X Ray Cervical Spine, 2 or 3 Views CLINICAL HISTORY: ?39 years ?Female neck pain Referring Physician: ?Link GERMAN Study Date: 08/14/2019 12:52 PM TECHNIQUE: ?Frontal and lateral views of the cervical spine. COMPARISON: ?No relevant prior studies available for comparison. FINDINGS: ?The C1-C5 are well evaluated on both frontal and lateral views. There aregrossly unremarkable. The C6 and C7 levels are not well evaluated on thelateral view or swimmer's view. These can be further evaluated eitherclinically or with CT scan. Other Findings: ?DISC SPACES: ?No acute significant abnormality. ?SOFT TISSUES: ?Unremarkable. [facility], Radiant Results Inft User - 08/14/2019 12:55 PM CDTEXAM: X Ray Cervical Spine, 2 or 3 ViewsCLINICAL HISTORY: 39 years Female neck pain Referring Phy sician: Link CISSEUStudy Date: 08/14/2019 12:52 PMTECHNIQUE: Frontal and lateral views of the cervical spine.COMPARISON: No relevant prior studies available for comparison.FINDINGS: The C1-C5 are well evaluated on both frontal and lateral views. There aregrossly unremarkable. The C6 and C7 levels are not well evaluated on thelateral view or swimmer's view. These can be further evaluated eitherclinically or with CT scan.Other Findings: DISC SPACES: No acute significant abnormality. SOFT TISSUES: Unremarkable.IMPRESSION The C1-C5 are well evaluated on both frontal and lateral views. There aregrossly unremarkable. The C6 and C7 levels are not well evaluated on thelateral view or swimmer's view. These can be further evaluated eitherclinically or with CT scan.Location code: RL: 4700 [facility] CHE[facility] 1 [id number] 17:51:58 ?No acute significant abnormality. Reading location: RL: 4700 Thank you for letting us participate in the care of your patient. EXAM: ?XR Chest, 1 View CLINICAL HISTORY: ?39 years Female chest pain ? Referring Physician: ?Link GERMAN StudyDate: 08/14/2019 12:51 PM TECHNIQUE: ?Frontal view of the chest. COMPARISON: ?No relevant prior studies available. FINDINGS: ?LUNGS: ?Unremarkable. ?No consolidation. ?PLEURAL SPACE: ?Unremarkable. ?No pneumothorax. ?HEART: ?Unremarkable. ?No cardiomegaly. ?MEDIASTINUM: ?Unremarkable. ?BONES/JOINTS: ?Unremarkable. [facility], Radiant Results Inft User - 08/14/2019 12:53 PM CDTEXAM: XR Chest, 1 ViewCLINICAL HISTORY: 39 years Female chest pain Referring Physician: Link CISSEUStudy Date: 08/14/2019 12:51 PMTECHNIQUE: Frontal view of the chest.COMPARISON: No relevant prior studies available.FINDINGS: LUNGS:Unremarkable. No consolidation. PLEURAL SPACE: Unremarkable. No pneumothorax. HEART: Unremarkable. No cardiomegaly. MEDIASTINUM: Unremarkable. BONES/JOINTS: Unremarkable.IMPRESSION No acute significant abnormality.Reading location: RL: 4700Thank you for letting us participate in the care of your patient. [facility]MINAL [id number] 17:51:00 Test Item Value Reference Range Interpretation Comments NT-proBNP (test code 859 pg/mL See_Comment H [Autom ated = 3258071204) message] The system which generated this result transmitted reference range : <=125. The reference range was not used to interpret this result as normal/abnormal . LAKESHIA (test code = LAKESHIA) Biotin has been reported to cause a negative bias, interpret results relative to patient's use of biotin. Lab Interpretation Abnormal (test code = 75814-9) [facility] CenterPOCT [id number] 17:50:00 Test Item Value Reference Range Interpretation Comments POCT PREG (test code = 1605) negative On board controls acceptable with present C Line (test code = 3574) POCT PREG LOT # (test code = 3575) [id number] POCT PREG TEST DATE (test 10/19/2020 code = 3576) Lab Interpretation (test code = Normal 47215-9) [facility] CenterCOMP. METABOLIC PANEL (99858)2019-08-14 17:43:00 Test Item Value Reference Range Interpretation Comments NA (test code = 142 mmol/L 135-145 1014653152) K (test code = 4.5 mmol/L 3.5-5 3747520178) CL (test code = 105 mmol/L 98-108 7654004777) CO2 TOTAL (test code = 26 mmol/L 23-31 0363070461) AGAP (test code = 2-16 0127785731) BUN (test code = 10 mg/dL 7-23 7044646804) GLUCOSE (test code = 142 mg/dL 70-110 H 5622644103) CREATININE (test code = 0.69 mg/dL 0.5-1.04 7054932207) TOTAL BILI (test code = 0.7 mg/dL 0.1-1.1 6065281804) CALCIUM (test code = 9.7 mg/dL 8.6-10.6 7547647089) T PROTEIN (test code = 8.1 g/dL 6.3-8.2 7962385236) ALBUMIN (test code = 4.1 g/dL 3.5-5 5689826118) ALK PHOS (test code = 126 U/L 34-122 H 7984041215) ALTv (test code = 22 U/L 5-35 1742-6) AST(SGOT) (test code = 25 U/L 13-40 0493493857) eGFR Calculation mL/min/1.73m2 (Non-) (test code = 8295285580) eGFR Calculation mL/min/1.73m2 () (test code = 2336395454) LAKESHIA (test code = LAKESHIA) Association of Glomerular Filtration Rate (GFR) and Staging of Kidney Disease* + --+ --+ ------+| GFR (mL/min/1.73 m2) ?| With Kidney Damage ?| ?Without Kidney Damage+ --------+ --------+ +| ?>90 ?| ?Stage one ?| ? Normal ?+ ---+ ---+ -------+| ?60-89 ?| ?Stage two ?| ? Decreased GFR ? + --+ --+ ------+| ?30-59 ?| ?Stage three ?| ? Stage three ? + --+ --+ ------+| ?15-29 ?| ?Stage four ? | ? Stage four ?+ ---+ ---+ -------+| ?<15 (or dialysis) ? ?| ?Stage five ? | ? Stage five ?+ ---+ ---+ -------+ *Each stage assumes the associated GFR level has been in effect for at least three months. ?Stages 1 to 5, with or without kidney disease, indicate chronic kidney disease. Notes: Determination of stages one and two (with eGFR >59mL/min/1.73 m2) requires estimation of kidney damage for at least three months as defined by structural or functional abnormalities of the kidney, manifested by either:Pathological abnormalities or Markers of kidney damage (including abnormalities in the composition of the blood or urine or abnormalities in imaging tests). Lab Interpretation Abnormal (test code = 29497-4) [facility] CenterLIPASE2020-05-25 17:43:00 Test Item Value Reference Range Interpretation Comments LIPASE (test code = 4898323774) 62 U/L 0-220 Lab Interpretation (test code = Normal 34856-5) [facility] CenterMAGNESIUM2020-05-25 17:43:00 Test Item Value Reference Range Interpretation Comments MAGNESIUM (test code = 1959659209) 1.7 mg/dL 1.7-2.4 Lab Interpretation (test code = Normal 92989-6) [facility] CenterD-[id number] 17:28:00 Test Item Value Reference Interpretation Comments Range D-DIMER (test code = See_Comment H [Autom ated 2616510416) message] The system which generated this result transmitted reference range : <0.41 ?g/mL (FEU). The reference range was not used to interpret this result as normal/abnormal . LAKESHIA (test code = This test may be LAKESHIA) used in conjunction with a clinical pretest probability (PTP) assessment model to exclude venous thromboembolism (VTE) in patients suspected of deep venous thrombosis (DVT) and pulmonary embolism (PE) A D-Dimer value less than 0.50 ?g/ml (FEU) has a negative predicative value of [...] the clinical context, in forming a diagnosis. Lab Interpretation Abnormal (test code = 69875-9) [facility] W/AUTO [id number] 11:13:00 Test Item Value Reference Range Interpretation [...] = 0.00 K/mm3 0.0-0.1 N NRBC#) DIFFERENTIAL [id number] 11:13:00 Test Item Value Reference Range Interpretation Comments RBC MORPHOLOGY REQUIRED (test code = ABNORMAL RBCM) ANISOCYTOSIS (test code = ANISO) MODERATE NONE PLATELET ESTIMATE (test code = ADEQUATE ADEQUATE PLTEST) PLATELET MORPHOLOGY (test code = NORMAL NORMAL PLTMORPH) BASIC METABOLIC [id number] 07:25:00 Test Item Value Reference Range Interpretation [...] 9.2 MG/DL 8.4-10.2 N CA) CBC W/AUTO [id number] 06:25:00 Test Item Value Reference Range Interpretation [...] = 0.00 K/mm3 0.0-0.1 N NRBC#) DIFFERENTIAL [id number] 06:25:00 Test Item Value Reference Range Interpretation Comments RBC MORPHOLOGY REQUIRED (test code = RBCM) PLATELET ESTIMATE (test code = PLTEST) ADEQUATE PLATELET MORPHOLOGY (test code = NORMAL PLTMORPH) CBC W/AUTO [id number] 06:25:00 Test Item Value Reference Range Interpretation [...] = 0.00 K/mm3 0.0-0.1 N NRBC#) DIFFERENTIAL [id number] 06:25:00 Test Item Value Reference Range Interpretation Comments RBC MORPHOLOGY REQUIRED (test code = RBCM) PLATELET ESTIMATE (test code = PLTEST) ADEQUATE PLATELET MORPHOLOGY (test code = NORMAL PLTMORPH) CBC W/O [id number] 11:11:00 Test Item Value Reference Range Interpretation [...] = 0.00 K/mm3 0.0-0.1 N NRBC#) DIFFERENTIAL [id number] 11:11:00 Test Item Value Reference Range Interpretation Comments RBC MORPHOLOGY REQUIRED (test code = ABNORMAL RBCM) ANISOCYTOSIS (test code = ANISO) SLIGHT NONE MICROCYTOSIS (test code = MICR) FEW NONE ELLIPTOCYTES (test code = ELL) FEW NONE OVALOCYTES (test code = OVAL) FEW NONE PLATELET ESTIMATE (test code = ADEQUATE ADEQUATE PLTEST) PLATELET MORPHOLOGY (test code = NORMAL NORMAL PLTMORPH) WBC [id number] 11:11:00 Test Item Value Reference Range Interpretation [...] EOS) 8.2 % 1-7 H BASIC METABOLIC [id number] 10:21:00 Test Item Value Reference Range Interpretation [...] 9.2 MG/DL 8.4-10.2 N CA) CBC W/O [id number] 10:03:00 Test Item Value Reference Range Interpretation [...] = 0.00 K/mm3 0.0-0.1 N NRBC#) DIFFERENTIAL [id number] 10:03:00 Test Item Value Reference Range Interpretation Comments RBC MORPHOLOGY REQUIRED (test code = RBCM) PLATELET ESTIMATE (test code = PLTEST) ADEQUATE PLATELET MORPHOLOGY (test code = NORMAL PLTMORPH) WBC [id number] 10:03:00 Test Item Value Reference Range Interpretation Comments TOTAL CELLS COUNTED (test code = TCC) #CELLS SEGMENTED NEUTROPHILS (test code = % 36.2-73.8 SEG) LYMPHOCYTE (test code = LYMPH) % 12.9-45.1 MONOCYTE (test code = MON) % 0-11 CBC W/AUTO [id number] 10:03:00 Test Item Value Reference Range Interpretation [...] = 0.00 K/mm3 0.0-0.1 N NRBC#) WBC [id number] 10:03:00 Test Item Value Reference Range Interpretation Comments RBC MORPHOLOGY REQUIRED (test code = RBCM) TOTAL CELLS COUNTED (test code = TCC) #CELLS SEGMENTED NEUTROPHILS (test code = % 36.2-73.8 SEG) LYMPHOCYTE (test code = LYMPH) % 12.9-45.1 MONOCYTE (test code = MON) % 0-11 PLATELET ESTIMATE (test code = ADEQUATE PLTEST) PLATELET MORPHOLOGY (test code = NORMAL PLTMORPH) VANCOMYCIN [id number] 23:47:00 Test Item Value Reference Range Interpretation Comments VANCOMYCIN TROUGH (test code = 14.1 UG/ML 10.0-20.0 N VANCT) CBC W/AUTO [id number] 15:26:00 Test Item Value Reference Range Interpretation [...] = 0.00 K/mm3 0.0-0.1 N NRBC#) DIFFERENTIAL [id number] 15:26:00 Test Item Value Reference Range Interpretation Comments RBC MORPHOLOGY REQUIRED (test code = NORMAL RBCM) POIKILOCYTOSIS (test code = POIK) FEW NONE ANISOCYTOSIS (test code = ANISO) SLIGHT NONE MICROCYTOSIS (test code = MICR) FEW NONE PLATELET ESTIMATE (test code = ADEQUATE ADEQUATE PLTEST) PLATELET MORPHOLOGY (test code = NORMAL NORMAL PLTMORPH) BASIC METABOLIC [id number] 11:48:00 Test Item Value Reference Range Interpretation [...] N CA) - CT HD/BR W W/O [id number] 11:45:00 Patient Name: LEIGH FRYE Unit No: [id number] EXAMS: CPT CODE: [id number] CT HD/BR W W/O CONT [address] HEAD WITHOUT CONTRAST HISTORY: post [...] hemorrhage, mass or mass effect, or abnormal extra- axial fluid collection. The ventricles are normal in size, shape and position. The density in the larger dural sinuses is grossly normal. The osseous structures and orbits have no significant abnormalities. The visualized paranasal sinuses and mastoid air cells are predominantly clear. No abnormal parenchymal or leptomeningeal enhancement. 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 No acute intracranial abnormality. at 1145 Reported and signed by: Deshawn Lorenzo MD CC: Technologist: URIEL BARTON RT(R)(CT)(MR); CTDI: DLP: Trnscrpt: 10/01/2018 (4434) [email or web address] [facility] [place] NAME: LEIGH FRYE PHYS: Jani Bro MD [place] [id number] : 1980 AGE: 38 SEX: F LOC: Z.530 A PHONE #: [phone] EXAM DATE: 10/01/2018 STATUS: ADM IN FAX #: [phone] RAD #: D/C DT PAGE 1 Signed Report Patient Name: LEIGH FRYE Unit No: [id number] EXAMS: CPT CODE: [id number] CT HD/BR W W/O CONT 69014 (Continued) Orig Print D/T: S: 10/01/2018 (7139) [facility] [place] NAME: LEIGH FRYE PHYS: Jani Bro MD [place] [id number] : 1980 AGE: 38 SEX: F LOC: Z.530 A PHONE #: [phone] EXAM DATE: 10/01/2018 STATUS: ADM IN FAX #: [phone] RAD #: D/C DT PAGE 2 Signed ReportPROTHROMBIN [id number] 11:40:00 Test Item Value Reference Range Interpretation Comments PROTHROMBIN TIME 10.3 SECONDS 9.6-11.6 N PATIENT (test code = PTP) INTERNATIONAL NORMAL 1.0 0.8-1.1 N The INR is to be RATIO (test code = used only for INR) monitoring oral anticoagulantth erap y. INDICATION I NR VALUE ---- ---- ---- -------1. Prophylaxis, de ep venous thrombos is, including high risk surgery. 2.0 - 3.0 2. Prophylaxis, deep venous thrombosis, hip surgery, treatm ent for deep venous thrombosis or pulmonary prevention of systemic emboli sm in patients wit h valvular heart disease, atrial fibrillation, tissue heart va lve, or acute myocar dial infarction. 2.0 - 3.0 3. Auto Research Engineer al prosthesis hear t valves, recurre nt systemic emboli sm. 3.0 - 4.5 PTT [id number] 11:40:00 Test Item Value Reference Range Interpretation Comments PTT ACTIVATED (test code = APTT) 25.7 SECONDS 22.0-33.0 N [id number] 11:40:00 Test Item Value Reference Range Interpretation Comments FIBRINOGEN (test code = FIB) 430 MG/DL 185-512 N [id number] 11:40:00 Test Item Value Reference Range Interpretation [...] f standard radiological pr ocedures. CBC W/AUTO [id number] 11:24:00 Test Item Value Reference Range Interpretation [...] = 0.00 K/mm3 0.0-0.1 N NRBC#) DIFFERENTIAL [id number] 11:24:00 Test Item Value Reference Range Interpretation Comments RBC MORPHOLOGY REQUIRED (test code = RBCM) PLATELET ESTIMATE (test code = PLTEST) ADEQUATE PLATELET MORPHOLOGY (test code = NORMAL PLTMORPH) PLATELET [id number] 11:24:00 Test Item Value Reference Range Interpretation Comments PLATELET COUNT (test code = PLT) 211 K/MM3 129-368 N CBC W/AUTO [id number] 11:24:00 Test Item Value Reference Range Interpretation [...] = 0.00 K/mm3 0.0-0.1 N NRBC#) DIFFERENTIAL [id number] 11:24:00 Test Item Value Reference Range Interpretation Comments RBC MORPHOLOGY REQUIRED (test code = RBCM) PLATELET ESTIMATE (test code = PLTEST) ADEQUATE PLATELET MORPHOLOGY (test code = NORMAL PLTMORPH) CBC W/O [id number] 00:37:00 Test Item Value Reference Range Interpretation [...] = 0.00 K/mm3 0.0-0.1 N NRBC#) DIFFERENTIAL [id number] 00:37:00 Test Item Value Reference Range Interpretation Comments RBC MORPHOLOGY REQUIRED (test code = ABNORMAL RBCM) ANISOCYTOSIS (test code = ANISO) MODERATE NONE MICROCYTOSIS (test code = MICR) FEW NONE PLATELET ESTIMATE (test code = ADEQUATE ADEQUATE PLTEST) PLATELET MORPHOLOGY (test code = NORMAL NORMAL PLTMORPH) - CT HD/BR W W/O [id number] 00:36:00 Patient Name: LEIGH FRYE Unit No: [id number] EXAMS: CPT CODE: [id number] CT HD/BR W W/OCONT 39982 Exam: CT of the brain and maxillofacial [...] moderate, persistent mucosal thickening of the bilateral sphenoid,and to a lesser degree, the ethmoid sinuses. 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 The mastoid air cells are well aerated. The ocular globes are symmetric. There is no lens dislocation. The retrobulbar fat is preserved, bilaterally. Impression: No evidence of an acute intracranial abnormality. 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 Persistent paranasal sinusitis, moderate at the sphenoid sinuses. 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 [facility] NAME: LEIGH FRYE [address] [place] PHYS: TIFFANY.Darcie - [place] [address] : 1980 AGE: 38 SEX: F LOC:Z.ERS PHONE #: [phone] EXAM DATE: 09/27/2018 STATUS: REG ER FAX #: [phone] RAD #: D/C DT PAGE 1 Signed Report (CONTINUED) Patient Name: LEIGH FRYE Unit No: [id number] EXAMS: CPT CODE: [id number] CT HD/BR W W/O CONT 30015 (Continued) at 0036 Reported and signed by: Ko Luo MD CC: Lazarus Brink MD Technologist: UIREL BARTON RT(R)(CT)(MR) CTDI: DLP: Trnscrpt: 09/28/2018 (0036) [email or web address] [facility] [place] NAME: LEIGH FRYE [address] [address] PHYS: Lazarus Mustafa MD [place] [id number] : 1980 AGE: 38 SEX: F LOC: [place] PHONE #: [phone] EXAM DATE: 09/27/2018 STATUS: REG ER FAX #: [phone] RAD #: D/C DT PAGE 2 Signed Report Patient Name: LEIGH FRYE Unit No: [id number] EXAMS: CPT CODE: [id number] CT HD/BR W W/O CONT 80800 (Continued) Orig Print D/T: S: 09/28/2018 (0040) [facility] [place] NAME: LEIGH FRYE [address] [address] PHYS: Lazarus Mustafa MD [place] [id number] : 1980 AGE: 38 SEX: F LOC: [place] PHONE #: [phone] DATE: 09/27/2018 STATUS: REG ER FAX #: [phone] RAD #: D/C DT PAGE 3 Signed Report- CT MAXIFAC [id number] 00:36:00 Patient Name: LEIGH FRYE Unit No: [id number] EXAMS: CPT CODE: [id number] CT MAXIFAC W/CONTRAST 27577 Exam: CT of the brain and maxillofacial [...] technique. Total DLP: 2300.6 mGy-cm. Comparison: 08/31/2018 CThead Location: R16 Findings: The ventricles and sulci are normal in size and symmetric. The basal cisterns are patent. There is no mass effect or midline shift. There is no evidence for acute territorial infarction. There is no acute intracranial hemorrhage. 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 There is moderate, persistent mucosal thickening of the bilateral sphenoid, and to a lesser degree, the ethmoid sinuses. 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 The mastoid air cells are well aerated. The ocular globes are symmetric. There is no lens dislocation. The retrobulbar fat is preserved, bilaterally. Impression: No evidence of an acute intracranial abnormality. 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 Persistent paranasal sinusitis, moderate at the sphenoid sinuses. 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 [facility] NAME: LEIGH FRYE [id number] PHYS: Lazarus Mustafa MD [place] [id number] : 1980 AGE: 38 SEX: F LOC: ZYOVANY PHONE #: [phone] EXAM DATE: 09/27/2018 STATUS: REG ER FAX #: [phone] RAD #: D/C DT PAGE 1 Signed Report (CONTINUED) Patient Name: LEIGH FRYE Unit No: [id number] EXAMS: CPT CODE: [id number] CT MAXIFAC W/CONTRAST 40780 (Continued) at 0036 Reported and signed by: Ko Luo MD CC: Lazarus Brink MD Technologist: URIEL BARTON RT(R)(CT)(MR) CTDI: DLP: Trnscrpt: 09/28/2018 (0036) t.[email or web address] [facility] NAME: LEIGH FRYE [id number] [address] PHYS: Lazarus Mustafa MD [place] [id number] : 1980 AGE: 38 SEX: F LOC: DelroyERS PHONE #: [phone] EXAM DATE: 09/27/2018 STATUS: REG ER FAX #: [phone] RAD #: D/C DT PAGE 2 Signed Report Patient Name: LEIGH FRYE Unit No: [id number] EXAMS: CPT CODE: [id number] CT MAXIFAC W/CONTRAST 96409 (Continued) Orig Print D/T: S: 09/28/2018 (0040) [facility] NAME: LEIGH FRYE [address] PHYS: [email or web address] - [place] [address] : 1980 AGE: 38 SEX: F LOC: FLEX PHONE #: [phone] EXAM DATE: 09/27/2018 STATUS: REG ER FAX #: [phone] RAD #: D/C DT PAGE 3 Signed Report- CT ABD PELVIS W/O CONT 2018-09-28 00:22:00 Patient Name: LEIGH FRYE Unit No: [id number] EXAMS: CPT CODE: [id number] CT ABD PELVIS W/O CONT 12625 CLINICAL HISTORY: Flank pain. LOCATION: E5 FINDINGS: Multislice axial images are obtained through the abdomen and pelvis without oral or intravenous contrast. Coronal and sagittal reconstructed images are obtained and are used in interpretation. No comparison studies. The liver is abovenormal size limits measuring 18.1 cm craniocaudal at the midclavicular line. No abnormalities are noted of the gallbladder, pancreas, or spleen. There is a laparoscopic gastric band in place. No abnormalities are noted of the adrenal glands or kidneys. No urinary calculi or hydronephrosis. The intrapelvic viscera are within normal limits. There is no significant adenopathy. No free fluid or fluid collections are evident. No signs of inflammation [...] BARTON RT(R)(CT)(MR) CTDI: DLP: Trnscrpt: 09/28/2018 (0022) [email or web address] [facility] NAME: LEIGH FRYE12141 [address] PHYS: [place] [address] : 1980 AGE: 38 SEX: F LOC: Z.ERS PHONE #: [phone] EXAM DATE: 09/27/2018 STATUS: REG ER FAX #: [phone] RAD #: D/C DT PAGE 1 Signed Report Patient Name: LEIGH FRYE Unit No: [id number] EXAMS: CPT CODE: [id number] CT ABD PELVIS W/O CONT 14245 (Continued) Orig Print D/T: S: 09/28/2018 (0025) [facility] NAME: LEIGH FRYE [id number] [address] PHYS: [place] [address] : 1980 AGE: 38 SEX: F LOC: Z.ERS PHONE #: [phone] EXAM DATE: 09/27/2018 STATUS: REG ER FAX #: [phone] RAD #: D/C DT PAGE 2 Signed ReportBASI METABOLIC [id number] 23:35:00 Test Item Value Reference Range Interpretation [...] 9.7 MG/DL 8.4-10.2 N CA) HEPATIC FUNCTION [id number] 23:35:00 Test Item Value Reference Range Interpretation [...] code = 139 UNITS/L 38-126 H ALKP) [id number] 23:35:00 Test Item Value Reference Range Interpretation Comments LIPASE (test code = LIP) 134 UNITS/L 23-300 N HCG SERUM [id number] 23:35:00 Test Item Value Reference Range Interpretation Comments HCG SERUM QUAL (test code = HCGQL) NEGATIVE NEGATIVE A BASIC METABOLIC [id number] 23:31:00 Test Item Value Reference Range Interpretation [...] code = CA) MG/DL 8.7-9.7 HEPATIC FUNCTION [id number] 23:31:00 Test Item Value Reference Range Interpretation Comments TOTAL PROTEIN (test code = PROT) G/DL 6.3-8.2 ALBUMIN (test code = ALB) G/DL 3.5-5.0 BILIRUBIN TOTAL (test code = BILT) MG/DL 0.2-1.3 BILIRUBIN DIRECT (test code = BILD) MG/DL 0.0-0.3 SGOT/AST (test code = AST) UNITS/L 15-37 SGPT/ALT (test code = ALT) UNITS/L 9-52 ALKALINE PHOSPHATASE (test code = UNITS/L 38-126 ALKP) [id number] 23:31:00 Test Item Value Reference Range Interpretation Comments LIPASE (test code = LIP) UNITS/L 23-300 HCG SERUM [id number] 23:31:00 Test Item Value Reference Range Interpretation Comments HCG SERUM QUAL (test code = HCGQL) NEGATIVE NEGATIVE A URINALYSIS [id number] 23:24:00 Test Item Value Reference Range Interpretation [...] Criteria SOURCE OF URINE: CLEAN CATCHCBC W/O [id number] 23:18:00 Test Item Value Reference Range Interpretation [...] = 0.00 K/mm3 0.0-0.1 N NRBC#) DIFFERENTIAL [id number] 23:18:00 Test Item Value Reference Range Interpretation Comments RBC MORPHOLOGY REQUIRED (test code = RBCM) PLATELET ESTIMATE (test code = PLTEST) ADEQUATE PLATELET MORPHOLOGY (test code = NORMAL PLTMORPH) CBC W/O [id number] 23:18:00 Test Item Value Reference Range Interpretation [...] = 0.00 K/mm3 0.0-0.1 N NRBC#) DIFFERENTIAL [id number] 23:18:00 Test Item Value Reference Range Interpretation Comments RBC MORPHOLOGY REQUIRED (test code = RBCM) PLATELET ESTIMATE (test code = PLTEST) ADEQUATE PLATELET MORPHOLOGY (test code = NORMAL PLTMORPH) URINALYSIS [id number] 23:15:00 Test Item Value Reference Range Interpretation [...] UACULT) SOURCE OF URINE: CLEAN CATCHVENOUS THROMBOPHILIA [id number] 07:52:00 Test Item Value Reference Range Interpretation [...] in samples drawn f rompatients (particularly c fam) who are visibly stresse d atthe time [...] ference Range:57 - 163 Antithrombi n Activity, Uovpoj700 % Dir ect oral anticoagulants such as [...] and i ts performance characteristics determined by [employer]. It has not been cleared or approvedby [facility] Food and Drug Administration. APTT 29.4 sec This test has not be en validated for monitoringunfra ctionated heparin therapy. aPTT-b ased therapeuticrang es for unfractionated heparin therapy have not beenes tablished. Consider ordering Hepari n anti-Xa(unfract ionated).Reference Range:18 years and older: 22.9 - 30.2APTT 1:1 VISITOR SERVICES TECHNICIAN Testing Not Indicated Not i ndicatedAPTT 1:1 [...] n Seconds 55.4 High sec Reference R alee:<= 47.0DRVVT Confirm Seconds 55.1 sec DRVVT Ratio [...] for definitive anti phospholipid syndrome (APS). JThromb Bbzi4489;4:295- 306.Reference Range:Negative: <21Beta-2 Glycoprotein I, IgM <10 SMU The reference inter pb reflects a 3SD or 99th percent ileinterval, which is thought to r epresent a potentiallyclin ically significant result in accor dance with theInternationa l Consensus Statement on e classificationc riteria for definitive anti phospholipid syndrome (APS). JThromb Fyay3538;4:295- 306.Reference Range:Negative: <33Beta-2 Glycoprotein I, IgA <10 DERIAN The reference inter pb reflects a 3SD or 99th percentileinter pb.Reference Range:Negative: <26 Factor II Gene Mutation Result G-G (Normal-Normal) No prothrombin K16760L mutatio n present.Interpr etation: While the patient [...] For in stance, acombination of the prothrombin G60072Q mutatio n and thefactor V Leiden mutation may confer an increase inthro mbotic risk in the range of 20-30 fold.Recommenda tions for Genetic Counseling: The prothrombingene mutation is an inherited characteristic. If themutation is present, we rec ommend that the patient andthei r family consider genetic vp & general counsel ing to obtainadditiona l information on inheritance and to identify otherfamily mem bers at risk.Testing Ch aracteristics: Genetic testing providesexcepti onally high sensitivity and specificity. Inaccurateresul ts are limited to rare polymorphi sms in primer bindingsites an d to misidentificati on of specimens by collectorsor la boratory personnel. This assay dete cts only theprothrombin Z52505O mutation and does not de tect othergenetic abnormalities.T his test was developed and i ts performance characteristics determined by [employer]. It has not been cleared or approvedby [facility] Food and Drug Administration. References: Presley K, [...] For in stance, acombination of the prothrombin C24686P mutatio n and thefactor V Leiden mutation may confer an increase inthro mbotic risk in the range of 20-30 fold.Recommenda tions for Genetic Counseling: The factor V Leidenmutation is an inherited characteristic. If the mutation ispresent, we r ecommend that the patient and the ir familyconsider genetic vp & general counsel ing to obtain additionalinfor mation on inheritance [...] and i ts performance characteristics determined by [employer]. It has not been cleared or approvedby [facility] Food and Drug Administration. PER CHUCKIE RNVENOUS THROMBOSIS PROFILETEST CODE: [id number]: THREE TUBES, 2 ML PPP EACH, FROZEN 2ML SERUM FROZEN 5 ML EDTA WHOLE BLOOD, ROOM TEMP.FLUID, [id number] 15:41:00 RUN DATE: 09/13/18 [facility] [place] RUN TIME: 1541 Specimen Inquiry RUN USER: INTERFACE PATIENT: LEIGH FRYE [place] [facility] [place] #: [id number] AGE/SX: 38/F ROOM: [facility] RE08/25/18REG DR: Jani Mckoy MD : [birth year] BED: A DIS: 06/25/19 STATUS: DIS IN TLOC: SPEC #: [id number] RECD: 09/12/18 STATUS: BILL ZULETA #: [id number] LAST: 09/12/[address] [facility] [address]: Jani Mckoy MD ENTERED: 09/12/18 SP TYPE: FLTHYR OTHR DR: Ko Valles MD, Asia E DPM Cabrera Phillips MD, PatrickMDORDERED: CB, FNA, FNA SAMPLE ADEQ CODES: [id number] - THYROID GLAND TM8233 B91585 - THYROID GLAND NEEDLE HR2033 G03773 - THYROID GLAND NEOPLASM, UNCER RE0769 R12834 - THYROID GLAND ASPIRATION, NOS [place]: [place] [address] [place] [address] Ko Valles MD [address] [facility] [address] [place] [address] [email or web address] Matilde Burnham DPM 1 [address] [facility] [address] [place] [address] [place] [address] [place] [address] [place] [address] [facility] [address] [place] [address] PROCEDURES: CB (09/12/181709) FNA (09/12/18) FNA SAMPLE ADEQ (09/13/18) TISSUES:A. THYROID GLAND, NOS - RIGHT THYROID FNA CONTINUED ON NEXT PAGE RUN DATE: 09/13/18 [facility] [place] RUN TIME: 154 Specimen Inquiry RUN USER: INTERFACE SPEC #: [id number] PATIENT: LEIGH FRYE #[id number] (Continued) CLINICAL HISTORY PITUITARY TUMOR CONSULTATION Dr. Yeny Lubin has reviewed this case andagrees with the diagnosis. CPT CODES CPT CODE(S): 82788 , 30176 , 48814 , , , , FINAL DIAGNOSIS Thyroid, [...] Burton 09/13/18 1541 END OF REPORT ADRENOCORTICOTROPIC [id number] 07:25:00 Test Item Value Reference Range Interpretation Comments ADRENOCORTICOTROPIC HORMONE 10.1 pg/mL 7.2-63.3 ACTH reference (test code = ACTH) interval for samples collected between 7 and10 AM.Performed At : [facility] [id number] Etienne Farfan MD Ph:[phone] - US FINE NEEDLE [id number] 15:08:00 Patient Name: LEIGH FRYE Unit No: [id number] EXAMS: CPT CODE: [id number] US FINE NEEDLE A SPIRATION 03955 Procedure: Ultrasound-guided right thyroid FNA Location: B2 Clinical Indication: 38-year-old with nodule Comparison: September 10, 2018 Technique: Written informed consent was obtained. Patient was placed supine on the stretcher and the right neck prepped and draped. Ultrasound was used to i dentify the nearly 3 cm well-circumscribed hypoechoic mass. 1% lidocaine was given. Under direct ultrasound visualization, multiple fine-needle aspiration specimens were obtained using 25 and 23-gauge needles. These were deemed adequate by the pathologist. Patient tolerated the procedure well, without immediate complication. Impression: Successful FNA of a right thyroid 3 cm nodule. ElectronicallySigned by Polly Valles on 09/12/2018 at 1508 Reported and signed by: Ko Valles M.D. CC: Technologist: Laura Devries Transcrpt Date/Tm/Trnsp: 09/12/2018 (1508) [email or web address] Orig Print D/T: S: 09/12/2018 (1511) MAL[facility] NAME: LEIGH FRYE [id number] PHYS: [place] [address] : 1980 AGE: 38 SEX: F LOC: Z.504 APHONE #: [phone] EXAM DATE: 09/12/2018 STATUS: ADM IN FAX #: [phone] RADIOLOGY NO: PAGE 1 Signed ReportUR OSMOLALITY [id number] 13:16:00 Test Item Value Reference Range Interpretation Comments UR OSMOLALITY RANDOM (test code = 311 MOS/KG 300-1200 N OSMOU) OSMOLALITY [id number] 10:17:00 Test Item Value Reference Range Interpretation Comments OSMOLALITY SERUM (test code = 297 mOsm/kg 275-295 H OSMO) [id number] 07:19:00 Test Item Value Reference Range Interpretation Comments GASTRIN (test 151 pg/mL 0-115 H Siemens Immuli te 2000 code = LINDA) Immunochemilumi nometric assay (ICMA)Values ob tained with different assay methods or kits cannotbe u sed interchangeably . Results cannot be inter preted asabsolute evid ence of the presence or abs ence of malignantdiseas e.Performed At: [facility] [address] [place], [place] [id number] ra Kristen VELASCO Ph:[phone] PARATHYROID HORMONE [id number] 07:02:00 Test Item Value Reference Range Interpretation Comments PARATHYROID HORMONE INTACT (test 100.6 pg/mL 7.5-53.5 H code = PARAI) CBC W/AUTO [id number] 10:14:00 Test Item Value Reference Range Interpretation [...] = 0.00 K/mm3 0.0-0.1 N NRBC#) DIFFERENTIAL [id number] 10:14:00 Test Item Value Reference Range Interpretation Comments RBC MORPHOLOGY REQUIRED (test code = NORMAL RBCM) PLATELET ESTIMATE (test code = PLTEST) ADEQ ADEQUATE PLATELET MORPHOLOGY (test code = NORMAL NORMAL PLTMORPH) T4 [id number] 07:55:00 Test Item Value Reference Range Interpretation Comments T4 FREE (test code = T4F) 1.3 NG/DL 0.78-2.19 N THYROID STIMULATING [id number] 07:55:00 Test Item Value Reference Range Interpretation Comments THYROID STIMULATING 1.530 MIU/L 0.465-4.68 N Please b e aware that HORMONE (test code = bias re sults for TSH TSH) may occur forpa tient who are taking Biotin suppleme nts. CORTISOL [id number] 07:53:00 Test Item Value Reference Range Interpretation Comments CORTISOL AM (test code = CORTAM) 2.45 ug/dL 4.46-22.7 L T4 [id number] 07:41:00 Test Item Value Reference Range Interpretation Comments T4 FREE (test code = T4F) 1.3 NG/DL 0.78-2.19 N THYROID STIMULATING [id number] 07:41:00 Test Item Value Reference Range Interpretation Comments THYROID STIMULATING HORMONE (test code MIU/L 0.465-4.68 = TSH) COMPREHENSIVE METABOLIC [id number] 07:25:00 Test Item Value Reference Range Interpretation [...] UNITS/L 38-126 H (test code = ALKP) [id number] 07:25:00 Test Item Value Reference Range Interpretation Comments MAGNESIUM (test code = MAG) 2.0 MG/DL 1.6-2.3 N CBC W/AUTO [id number] 07:09:00 Test Item Value Reference Range Interpretation [...] = 0.00 K/mm3 0.0-0.1 N NRBC#) DIFFERENTIAL [id number] 07:09:00 Test Item Value Reference Range Interpretation Comments RBC MORPHOLOGY REQUIRED (test code = RBCM) PLATELET ESTIMATE (test code = PLTEST) ADEQUATE PLATELET MORPHOLOGY (test code = NORMAL PLTMORPH) CBC W/AUTO [id number] 07:09:00 Test Item Value Reference Range Interpretation [...] = 0.00 K/mm3 0.0-0.1 N NRBC#) DIFFERENTIAL [id number] 07:09:00 Test Item Value Reference Range Interpretation Comments RBC MORPHOLOGY REQUIRED (test code = RBCM) PLATELET ESTIMATE (test code = PLTEST) ADEQUATE PLATELET MORPHOLOGY (test code = NORMAL PLTMORPH) - US HEAD AND [id number] 09:01:00 Patient Name: LEIGH FRYE Unit No: [id number] EXAMS: CPT CODE: [id number] US HEAD AND NECK [address]872 LOCATION: T18 EXAM: - US HEAD AND NECK INDICATION: nodule rt thyroid area COMPARISON: CT of th e chest September 04, 2018. Thyroid ultrasound August 28, 2018 TECHNIQUE: Real-time grayscale sonographic images of the thyroid are submitted for interpretation. FINDINGS: Right thyroid lobe measures 5.4 x 2.1x 1.9 cm left thyroid lobe measures 5.2 [...] August 28, 2018, measuring up to 3.3 cm, previously 2.7 cm. at 0901 Reported and signed by: Renetta Mar MD CC: Technologist: Alexandra Greenwood (RDMS AB OB) Transcrpt Date/Tm/Trnsp: 09/10/2018 (09) [id number] Orig Print D/T: S:09/10/2018 (0904) [facility] NAME: LEIGH FRYE41 Js PHYS: Jani Bro MD [place] [id number] : 1980 AGE: 38 SEX: F LOC: Z.504 A PHONE #: EXAM DATE: 09/10/2018 STATUS: ADM IN FAX #: [phone] RADIOLOGY NO: PAGE 1 Signed Report- XR CHEST 2 [id number] 09:35:00 Patient Name: LEIGH FRYE Unit No: [id number] EXAMS: CPT CODE: [id number] XR CHEST 2 V 55538 EXAM: CHEST 2 VIEWS INDICATION: Follow-up infiltrates [...] interstitial and airspace opacities throughout both lungs unchangedfrom the prior examination. at 0935 Reported and signed by: Ida Obrien MD CC: Technologist: Serenity Cali RT (R) Transcrpt Date/Tm/Trnsp: 09/09/2018 (0935) [email or web address] Orig Print D/T: S: 09/09/2018 (0938) [facility] NAME: LEIGH FRYE [id number] [address] PHYS: Jani Bro MD [place] [id number] : 1980 AGE: 38 SEX: F LOC: Nani Mccullough PHONE #: [phone] EXAM DATE: 09/09/2018 STATUS: ADM IN FAX #: [phone] RADIOLOGY NO: PAGE 1 Signed ReportBUN CREATININE 2018-09-09 07:02:00 Test Item Value Reference Range Interpretation Comments BLOOD UREA NITROGEN 9 MG/DL 7-17 N (test code = BUN) GLOMERULAR FILTRATION > 60 Report ing units: RATE (test code = GFR) ml/mi n/1.73 m2 (Modified MDRD Formula)Referen ce Range: > or = 6 0 ml/min/1.73 m2 CREATININE (test code 0.70 MG/DL 0.52-1.04 N = CREAT) BASIC METABOLIC [id number] 14:53:00 Test Item Value Reference Range Interpretation [...] 9.2 MG/DL 8.4-10.2 N CA) Comments to Physical Chemistry Professor: draw after picc line inserted today- FLUORO GUID CTRL ACC [id number] 14:44:00 Patient Name: LEIGH FRYE Unit No: [id number] EXAMS: CPT CODE: [id number] FLUORO GUID CTRL ACC DEV 91782 EXAMINATION: NON-TUNNELED CENTRAL VENOUS CATHETER PLACEMENT. LOCATION: B2. HISTORY: Pneumonia and recent pituitary adenoma resection. SEDATION: The patient did not require conscious sedation for the procedure. RADIATION DOSE: Total reference air kerma 7.42 mGy. ANTIBIOTICS: None. Not indicated. CONTRAST: None. TECHNIQUE: The risks, benefits, and alternatives were discussed and informed consent was obtained. Prior to beginning the procedure, [place] Protocol was used to confirm the patient's identity and planned procedure. Maximum sterile barriers including cap, mask, hand hygiene,sterile gloves, sterile gown, large sterile drape and [...] the access site to the right atrium was assessed. After dilating the tract, a dual-lumen PICC was inserted over the guidewire and through a peel-away sheath. The catheter was flushed and secured in place. A sterile dressing was applied. ESTIMATED BLOOD LOSS: Less than 30 milliliters. COMPLICATIONS: None. DISCHARGED TO: Inpatient unit. FINDINGS: Ultrasound demonstrates a patent right basilic vein. The final fluoroscopic image demonstrates the catheter with its tip at the cavoatrial junction. No complications are seen. IMPRESSION: Successful non-tunneled PICC placement via the right basilic vein. [facility] NAME: LEIGH FRYE [id number] PHYS: [place] [address] : 1980 AGE: 38 SEX: F LOC: Z.504 A PHONE #: [phone] EXAM DATE: 09/08/2018 STATUS: ADM IN FAX #: [phone] RADIOLOGY NO: PAGE 1 Signed Report (CONTINUED) Patient Name: LEIGH FRYE Unit No: [id number] EXAMS: CPT CODE: [id number] FLUORO GUID CTRL ACC DEV 39877 (Continued) PLAN: The catheter is ready for immediate use. When treatment is completed, this catheter can be removed at the bedside according to standard hospital protocol. timber harvester operator: Jacqueline Fleming PA-C. at 1442 Reported and signed by: Alireza Pepe MD CC: Technologist: ROCHELLE Umana, RT(R) Transcrpt Date/Tm/Trnsp: 09/08/2018 (4044) [email or web address] Orig Print D/T: S: 09/08/2018 (5046) [facility] NAME: LEIGH FRYE [address] PHYS: [place] [address] : 1980 AGE: 38 SEX: F LOC: Z.504 A PHONE #: [phone] EXAM DATE: 09/08/2018 STATUS: ADM IN FAX #: [phone] RADIOLOGY NO: PAGE 2 Signed Report- US GUIDANCE VASC [id number] 14:44:00 Patient Name: LEIGH FRYE Unit No: [id number] EXAMS: CPT CODE: [id number] US GUIDANCE VASC ACCESS 43829 EXAMINATION: NON-TUNNELED CENTRAL VENOUS CATHETER PLACEMENT. LOCATION: B2. HISTORY: Pneumonia and recent pituitary adenoma resection. SEDATION: The patient did not require conscious sedation for the procedure. RADIATION DOSE: Total reference air kerma 7.42 mGy. ANTIBIOTICS: None. Not indicated. CONTRAST: None. TECHNIQUE: The risks, benefits, and alternatives were discussed and informedconsent was obtained. Prior to beginning the procedure, [place] Protocol was used to confirm the patient's identity and planned procedure. Maximum sterile barriers including cap, mask, hand hygiene, s terile gloves, sterile gown, large sterile drape and cutaneous antisepsis were used. The skin over the right basilic vein was sterilely prepped, draped, and infiltrated with lidocaine. Prior to the procedure, the target vessel was evaluated by ultrasound. An image of the patent vessel was recorded andsaved to PACS. After sterile prep, this vessel was accessed with a micropuncture needle using real-time ultrasound guidance. A guidewire and catheter were then passed centrally using fluoroscopic guidance. The intravascular length from the access site to the right atrium was assessed. After dilating the tract, a dual-lumen PICC was inserted over the guidewire and through a peel-away sheath. The cathet er was flushed and secured in place. A sterile dressing was applied. ESTIMATED BLOOD LOSS: Less than30 milliliters. COMPLICATIONS: None. DISCHARGED TO: Inpatient unit. FINDINGS: Ultrasound demonstrates a patent right basilic vein. The final fluoroscopic image demonstrates the catheter with its tip at the cavoatrial junction. No complications are seen. IMPRESSION: Successful non- tunneled PICC placement via the right basilic vein. [facility] NAME: LEIGH FRYE [address] [address] PHYS: [place] [address] : 1980 AGE: 38 SEX: F LOC: Delroy504A PHONE #: [phone] EXAM DATE: 09/08/2018 STATUS: ADM IN FAX #: [phone] RADIOLOGY NO: PAGE1 Signed Report (CONTINUED) Patient Name: LEIGH FRYE Unit No: [id number] EXAMS: CPT CODE: [id number] US GUIDANCE VASC ACCESS 52087 (Continued) PLAN: The catheter is ready for immediate use. When treatment is completed, this catheter can be removed at the bedside according to standard hospital protocol. timber harvester operator: Jacqueline lFeming PA-C. at 1444 Reported and signed by: Alireza Pepe MD CC: Technologist: ROCHELLE Umana, RT(R) Transcrpt Date/Tm/Trnsp: 09/08/2018 (1444) [email or web address] Orig Print D/T: S: 09/08/2018 (1447) [facility] NAME: LEIGH FRYE [id number] [address] PHYS: Jani Bro MD [place], [place] [address]IT: 1980 AGE: 38 SEX: F LOC: Z.504 A PHONE #: [phone] EXAM DATE: 09/08/2018 STATUS: ADM IN FAX #: [phone] RADIOLOGY NO: PAGE 2 Signed ReportB-TYPE NATRIURETIC [id number] 13:13:00 Test Item Value Reference Range Interpretation Comments B-TYPE NATRIURETIC PEPTIDE (test 222.0 PG/ML 0-100 H code = BNP) [id number] 12:39:00 Test Item Value Reference Range Interpretation Comments HOMOCYSTEINE (test code 6.3 umol/L 0.0-15.0 Perf ormed At: HD = HOMOCY) [facility] [address] [id number] Farfan MD Ph:[phone] PATIENT IS A HARD STICK. UNABLE TO GET BLOOD SAMPLE.NOTIFIED PATIENT CARE STAFF: TIMO/HARSH HERNANDEZON 09/06/18 AT 1427 BY Z.LAB.ALG - VEIN FINDER USED.PER CHUCKIE HERNANDEZ ADRENOCORTICOTROPIC [id number] 07:16:00 Test Item Value Reference Range Interpretation Comments ADRENOCORTICOTROPIC HORMONE 16.3 pg/mL 7.2-63.3 ACTH reference (test code = ACTH) interval for samples collected between 7 and10 AM.Performed At : HD [facility] [address] [id number] Farfan MD Ph:[phone] - XR CHEST 2 [id number] 17:42:00 Patient Name: LEIGH FRYE Unit No: [id number] EXAMS: CPT CODE: [id number] XR CHEST 2 V 94269 Chest Radiographs, 2 views. Location: B2 Clinical Indication: 38-year-old with right lower lobe as piration pneumonia Comparison: September 04, 2018 Findings: PA and lateral views of the chest were obtained. There is dense interstitial opacification throughout the [...] study. Differential considerations include pulmonary edema or anatypical infectious process. at 1742 Reported and signed by: Ko Valles M.D. CC: Technologist: Sana Porter RT(R) TranscrptDate/Tm/Trnsp: 09/07/2018 (9291) t.SDR.[email or web address] Orig Print D/T: S: 09/07/2018 (9626) [facility] NAME: LEIGH FRYE [address] PHYS: [place] [address] : 1980 AGE: 38 SEX: F LOC: Nani A PHONE #: [phone] EXAM DATE: 09/07/2018 STATUS: ADM IN FAX #: [phone] RADIOLOGY NO: PAGE 1 Signed Report VANCOMYCIN [id number] 03:58:00 Test Item Value Reference Range Interpretation Comments VANCOMYCIN TROUGH (test code = 10.7 UG/ML 10.0-20.0 N VANCT) CORTISOL [id number] 12:02:00 Test Item Value Reference Range Interpretation Comments CORTISOL AM (test code = CORTAM) 19.70 ug/dL 4.46-22.7 UR 17 [id number] 07:38:00 Test Item Value Reference Range Interpretation Comments UR 17 HYDROXYCORTICOSTEROIDS MG/24HR 4.0-14.0 Hours Collected (test code = 17HCST) 24 hr T otal Volume 3500 mL Creatinine, Urine - per ajealn25 mg/dL Creatinine, Urine - per 24h 1400 mg/d 700 - 1600 17Hydroxycortic o ster. mg/g ROAD SUPERVISOR <5.0 mg/gCR 2.0 - 6.5 17 OH-Corticostero i ds mg/day <7.0 mg/d 4.0 - 14.0 CORTISOL [id number] 19:42:00 Test Item Value Reference Range Interpretation Comments CORTISOL PM (test code = CORTPM) 9.97 mcg/dL 3.09-16.66 N [id number] 13:04:00 Test Item Value Reference Range Interpretation Comments VANCOMYCIN (test code = VANCO) 10.6 mcg/ML 5.0-26.0 N BASIC METABOLIC [id number] 08:39:00 Test Item Value Reference Range Interpretation [...] code = 8.8 MG/DL 8.4-10.2 N CA) [id number] 08:39:00 Test Item Value Reference Range Interpretation Comments MAGNESIUM (test code = MAG) 1.9 MG/DL 1.6-2.3 N HGB [id number] 08:35:00 Test Item Value Reference Range Interpretation Comments HEMOGLOBIN (test code = HGB) 7.5 G/DL 11.2-14.9 L HEMATOCRIT (test code = HCT) 24.7 % 33.2-43.5 L WHITE BLOOD [id number] 08:35:00 Test Item Value Reference Range Interpretation Comments WHITE BLOOD CELL (test code = WBC) 5.7 K/MM3 3.8-9.8 N UR 17 KETOGENIC [id number] 08:13:00 Test Item Value Reference Interpretation Comments Range UR 17 KETOGENIC mg/24 hr 3.0-15.0 Cortisol, Ur inary Free STEROIDS (test Cortisol,F,ug /L,U A 59 ug/L code = 17KETGU) Undefined Co rtisol,F,ug/24hr,U 136 High ug/24 hr 6 - 42 Comments:A This test was developed and i ts performancechar acteristics determined by[facility]. It has not been cleare d or approved by the Food andDru gAdministration. ADRENOCORTICOTROPIC [id number] 07:27:00 Test Item Value Reference Range Interpretation Comments ADRENOCORTICOTROPIC HORMONE 8.5 pg/mL 7.2-63.3 ACTH reference (test code = ACTH) interval for samples collect ed between 7 and10 AM.Performed At : HD [facility] [address] [place], [place] [id number] yovany Farfan MD Ph:[phone] PROCALCITONIN (PCT)2018-09-05 06:48:00 Test Item Value Reference Range Interpretation Comments PROCALCITONIN (PCT) < 0.05 NG/ML PROCALCI TONIN (PCT) (test code = PROCAL) NORMAL RANGE (ADULT):<0.05 N G/ML. - a concentration < 0.5 ng/mL represent s a low risk ofsevere s epsis and/or septic s hock. - a concentration > 2 ng/mL represent s a high risk ofsev ere sepsis and/or s eptic shock. Neverthe less, concentrations < 0.5 ng/mL do not ex clude aninfection, on account of loca lized infections (withoutsystemi c signs) which ca n be associated with such lowconcentratio ns, or a systemic infe ction in its initials tages (< 6 hours). Furthermore, in creased procalcitoninca n occur without infecti on. PCT concentrations between 0.5and 2.0 ng/m L should be inter preted taking into acc ount thepatient's hi story. It is recommend ed to retest PCT with in 6-24 hours if any concentrations < 2 ng/mL are obtai keanu. CORTISOL [id number] 06:28:00 Test Item Value Reference Range Interpretation Comments CORTISOL AM (test code = CORTAM) 5.71 ug/dL 4.46-22.7 VANCOMYCIN [id number] 05:58:00 Test Item Value Reference Range Interpretation Comments VANCOMYCIN TROUGH (test code = 20.8 UG/ML 10.0-20.0 H VANCT) CORTISOL [id number] 17:52:00 Test Item Value Reference Range Interpretation Comments CORTISOL PM (test code = CORTPM) 11.10 mcg/dL 3.09-16.66 B-TYPE NATRIURETIC [id number] 10:19:00 Test Item Value Reference Range Interpretation Comments B-TYPE NATRIURETIC PEPTIDE (test 151.0 PG/ML 0-100 H code = BNP) Comments to Physical Chemistry Professor: add on to blood in labPROCALCITONIN (PCT)2018-09-04 09:27:00 Test Item Value Reference Range Interpretation Comments PROCALCITONIN (PCT) < 0.05 NG/ML PROCALCI TONIN (PCT) (test code = PROCAL) NORMAL RANGE (ADULT):<0.05 N G/ML. - a concentration < 0.5 ng/mL represent s a low risk ofsevere s epsis and/or septic s hock. - a concentration > 2 ng/mL represent s a high risk ofsev ere sepsis and/or s eptic shock. Neverthe less, concentrations < 0.5 ng/mL do not ex clude aninfection, on account of loca lized infections (withoutsystemi c signs) which ca n be associated with such lowconcentratio ns, or a systemic infe ction in its initials tages (< 6 hours). Furthermore, in creased procalcitoninca n occur without infecti on. PCT concentrations between 0.5and 2.0 ng/m L should be inter preted taking into acc ount thepatient's hi story. It is recommend ed to retest PCT with in 6-24 hours if any concentrations < 2 ng/mL are obtai keanu. Comments to Physical Chemistry Professor: add on to blood in [id number] 09:10:00 Test Item Value Reference Range Interpretation Comments TROPONIN-I (test code = TROPI) < 0.012 NG/ML 0.012-0.033 L LACTIC [id number] 09:02:00 Test Item Value Reference Range Interpretation Comments LACTIC ACID (test code = LACT) 0.9 MMOL/L 0.7-2.1 N CBC W/AUTO [id number] 07:29:00 Test Item Value Reference Range Interpretation [...] = 0.00 K/mm3 0.0-0.1 N NRBC#) DIFFERENTIAL [id number] 07:29:00 Test Item Value Reference Range Interpretation [...] NORMAL RANGE (ADULT):<0.05 N G/ML. - a concentration < 0.5 ng/mL represent s a low risk ofsevere s epsis and/or septic s hock. - a concentration > 2 ng/mL represent s a high risk ofsev ere sepsis and/or s eptic shock. Neverthe less, concentrations < 0.5 ng/mL do not ex clude aninfection, on account of loca lized infections (withoutsystemi c signs) which ca n be associated with such lowconcentratio ns, or a systemic infe ction in its initials tages (< 6 hours). Furthermore, in creased procalcitoninca n occur without infecti on. PCT concentrations between 0.5and 2.0 ng/m L should be inter preted taking into acc ount thepatient's hi story. It is recommend ed to retest PCT with in 6-24 hours if any concentrations < 2 ng/mL are obtai keanu. - CTA CHEST FOR [id number] 06:14:00 Patient Name: LEIGH FRYE Unit No: [id number] EXAMS: CPT CODE: [id number] [place] [address] DICTATION LOCATION: H48 HISTORY: Female, 38 years of age with acute hypoxemia, Hx of PE, high pre-test probability EXAM: CT ANGIOGRAPHY OF THE CHEST COMPARISON: Chest x- ray performed today; ultrasound of neck performed 08/28/2018 TECHNIQUE: Helical axial images were obtained from thoracic inlet to upper abdomen with nonionic IV contrast using the CT angiography protocol. Image post processing with MIP and multiplanar reconstruction were performed at the advanced workstation. One or more of thefollowing dose reduction techniques were used: Automated exposure [...] device in place. No acute osseous abnormality. IMPRESSION: 1. No obvious pulmonary embolism. 2. No aortic aneurysm or dissection. 3. Patchy right upper lobe and right middle lobe alveolar interstitial pneumonia. 4. Milder i nterstitial opacities in both lower lobes and left upper lobe could reflect additional interstitial pneumonia versus superimposed edema. 5. 2.5 cm low- density nodule right thyroid, possibly originating from the thyroid gland or parathyroid. Please see ultrasound of neck performed 08/28/2018. at 0614 Reported and signed by: Deanne Boyer MD [facility] NAME: LEIGH FRYE [address] [address] [address] PHYS: Bear Lagunas MD [place], [place] [address]QJV: 1980 AGE: 38 SEX: F LOC: Z.SI08 A PHONE #: [phone] EXAM DATE:09/04/2018 STATUS: ADM IN FAX #: [phone] RAD #: D/C DT PAGE 1 Signed Report (CONTINUED) Patient Name: LEIGH FRYE Unit No: [id number] EXAMS: CPT CODE: [id number] [place] [address](Continued) CC: Bear Wells MD Technologist: URIEL BARTON RT(R)(CT)(MR) CTDI: DLP: Trnscrpt: 09/04/2018 (0614) VelmaW [facility] NAME: LEIGH FRYE [address] [address] [address] PHYS: [place] [address] : 1980 AGE: 38 SEX: F LOC: Z.SI08 A PHONE #: [phone] EXAM DATE: 09/04/2018 STATUS: ADM IN FAX #: [phone] RAD #: D/C DT PAGE 2 Signed Report Patient Name: LEIGH FRYE Unit No: [id number] EXAMS: CPT CODE: [id number] [place] [address] (Continued) Orig Print D/T: S: 09/04/2018 (0838) [facility] NAME: LEIGH FRYE [address] [address] PHYS: [place] [address] : 1980 AGE: 38 SEX: F LOC: Z.SI08 A PHONE #: [phone] EXAM DATE: 09/04/2018 STATUS: ADM IN FAX #: [phone] RAD #: D/C DT PAGE 3 Signed ReportGLUCOSE BEDSIDE [id number] 06:09:00 Test Item Value Reference Range Interpretation Comments GLUCOSE BEDSIDE TESTING (test code = 99 MG/DL 60-99 N GLUBED) CORTISOL [id number] 06:04:00 Test Item Value Reference Range Interpretation Comments CORTISOL AM (test code = CORTAM) 3.62 ug/dL 4.46-22.7 L BASIC METABOLIC [id number] 05:38:00 Test Item Value Reference Range Interpretation [...] 9.0 MG/DL 8.4-10.2 N CA) HEPATIC FUNCTION [id number] 05:38:00 Test Item Value Reference Range Interpretation [...] code = 114 UNITS/L 38-126 N ALKP) [id number] 05:38:00 Test Item Value Reference Range Interpretation Comments MAGNESIUM (test code = MAG) 2.0 MG/DL 1.6-2.3 N [id number] 05:38:00 Test Item Value Reference Range Interpretation Comments TROPONIN-I (test code = TROPI) < 0.012 NG/ML 0.012-0.033 L LACTIC [id number] 05:33:00 Test Item Value Reference Range Interpretation Comments LACTIC ACID (test code = LACT) 1.2 MMOL/L 0.7-2.1 N BASIC METABOLIC [id number] 05:33:00 Test Item Value Reference Range Interpretation [...] 9.0 MG/DL 8.4-10.2 N CA) HEPATIC FUNCTION [id number] 05:33:00 Test Item Value Reference Range Interpretation [...] code = 114 UNITS/L 38-126 N ALKP) [id number] 05:33:00 Test Item Value Reference Range Interpretation Comments MAGNESIUM (test code = MAG) 2.0 MG/DL 1.6-2.3 N [id number] 05:33:00 Test Item Value Reference Range Interpretation Comments TROPONIN-I (test code = TROPI) NG/ML 0.0-0.045 PROTHROMBIN [id number] 05:27:00 Test Item Value Reference Range Interpretation Comments PROTHROMBIN TIME 10.3 SECONDS 9.6-11.6 N PATIENT (test code = PTP) INTERNATIONAL NORMAL 1.0 0.8-1.1 N The INR is to be RATIO (test code = used only for INR) monitoring oral anticoagulantth erap y. INDICATION I NR VALUE ---- ---- ---- -------1. Prophylaxis, de ep venous thrombos is, including high risk surgery. 2.0 - 3.0 2. Prophylaxis, deep venous thrombosis, hip surgery, treatm ent for deep venous thrombosis or pulmonary prevention of systemic emboli sm in patients wit h valvular heart disease, atrial fibrillation, tissue heart va lve, or acute myocar dial infarction. 2.0 - 3.0 3. Auto Research Engineer al prosthesis hear t valves, recurre nt systemic emboli sm. 3.0 - 4.5 PTT [id number] 05:27:00 Test Item Value Reference Range Interpretation Comments PTT ACTIVATED (test code = APTT) 27.5 SECONDS 22.0-33.0 N CBC W/AUTO [id number] 05:10:00 Test Item Value Reference Range Interpretation [...] = 0.00 K/mm3 0.0-0.1 N NRBC#) DIFFERENTIAL [id number] 05:10:00 Test Item Value Reference Range Interpretation Comments RBC MORPHOLOGY REQUIRED (test code = RBCM) PLATELET ESTIMATE (test code = PLTEST) ADEQUATE PLATELET MORPHOLOGY (test code = NORMAL PLTMORPH) CBC W/AUTO [id number] 05:10:00 Test Item Value Reference Range Interpretation [...] = 0.00 K/mm3 0.0-0.1 N NRBC#) DIFFERENTIAL [id number] 05:10:00 Test Item Value Reference Range Interpretation Comments RBC MORPHOLOGY REQUIRED (test code = RBCM) PLATELET ESTIMATE (test code = PLTEST) ADEQUATE PLATELET MORPHOLOGY (test code = NORMAL PLTMORPH) - XR CHEST [id number] 04:59:00 Patient Name: LEIGH FRYE Unit No: [id number] EXAMS: CPT CODE: [id number] XR CHEST 1V 15311 EXAM: - XR CHEST 1V Location code:C3 HISTORY: RESP FAILURE COMPARISON: None available time of inte rpretation. FINDINGS: 2 AP views of the chest are provided. Heart size and vascularity are within normal limits. Patchy consolidation of the right lung base is seen. The left lung is clear. There is nopneumothorax. IMPRESSION: 1. Patchy consolidation at the right lung base concerning for pneumonia is seen. at 0459 Reported and signed by: Cabrera Ngo MD CC: Bear Wells MD Technologist: Francesco Covarrubias, RT(R) Transcrpt Date/Tm/Trnsp: 09/04/2018 (0459) [id number] Orig Print D/T: S: 09/04/2018 (0502) [facility] NAME: LEIGH FRYE [address] [address] PHYS: [place] [address] : 1980 AGE: 38 SEX: F LOC: Z.531 A PHONE #: [phone] EXAM DATE: 09/04/2018 STATUS: ADM IN FAX #: [phone] RADIOLOGY NO: PAGE 1 Signed ReportPOC ARTERIAL BLOOD [id number] 04:48:00 Test Item Value Reference Range Interpretation Comments POC ARTERIAL BLOOD GAS PH 7.392 7.35-7.45 N (test code = POCPHA) POC ARTERIAL BLOOD GAS PCO2 46.8 mmHg 35.0-45.0 H (test code = FFZQRN7T) POC ARTERIAL BLOOD GAS PO2 95 75.0-100.0 N (test code = PYCJM1I) POC HCO3 ARTERIAL (test code 28.4 MMOL/L 20.0-26.0 HH = ZZUCBP5A) POC BASE EXCESS (test code = 4.0 MMOL/L -3.0-3.0 H POCBEA) POC O2 SATURATION (test code 97 % 92.0-98.5 N = POCO2S) FIO2 (test code = FIO2A) 100 % 21-100 N ABG DELIVERY (test code = NonRb Mask KIRILL) ABG SITE (test code = SITEA) L Brachial ALLENS TEST (test code = N/A CHECK MD Ntfd/RBV~ ALLENS) CBC W/AUTO [id number] 12:05:00 Test Item Value Reference Range Interpretation [...] = 0.00 K/mm3 0.0-0.1 N NRBC#) DIFFERENTIAL [id number] 12:05:00 Test Item Value Reference Range Interpretation Comments RBC MORPHOLOGY REQUIRED (test code = ABNORMAL RBCM) ANISOCYTOSIS (test code = ANISO) SLIGHT NONE ELLIPTOCYTES (test code = ELL) FEW NONE OVALOCYTES (test code = OVAL) MODERATE NONE PLATELET ESTIMATE (test code = ADEQ ADEQUATE PLTEST) PLATELET MORPHOLOGY (test code = NORMAL NORMAL PLTMORPH) CORTISOL [id number] 07:11:00 Test Item Value Reference Range Interpretation Comments CORTISOL AM (test code = CORTAM) 1.20 ug/dL 4.46-22.7 L CORTISOL [id number] 07:11:00 Test Item Value Reference Range Interpretation Comments CORTISOL PM (test code = CORTPM) 1.20 mcg/dL 3.09-16.66 L BASIC METABOLIC [id number] 06:39:00 Test Item Value Reference Range Interpretation [...] 9.1 MG/DL 8.4-10.2 N CA) CBC W/AUTO [id number] 06:30:00 Test Item Value Reference Range Interpretation [...] = 0.00 K/mm3 0.0-0.1 N NRBC#) DIFFERENTIAL [id number] 06:30:00 Test Item Value Reference Range Interpretation Comments RBC MORPHOLOGY REQUIRED (test code = RBCM) PLATELET ESTIMATE (test code = PLTEST) ADEQUATE PLATELET MORPHOLOGY (test code = NORMAL PLTMORPH) CBC W/AUTO [id number] 06:30:00 Test Item Value Reference Range Interpretation [...] = 0.00 K/mm3 0.0-0.1 N NRBC#) DIFFERENTIAL [id number] 06:30:00 Test Item Value Reference Range Interpretation Comments RBC MORPHOLOGY REQUIRED (test code = RBCM) PLATELET ESTIMATE (test code = PLTEST) ADEQUATE PLATELET MORPHOLOGY (test code = NORMAL PLTMORPH) UA SPECIFIC [id number] 23:35:00 Test Item Value Reference Range Interpretation Comments UA SPECIFIC GRAVITY (test code = SGU) 1.025 1.003-1.030 N [id number] 23:22:00 Test Item Value Reference Range Interpretation Comments CORTISOL (test code = CORTR) 1.65 ug/dL 1.7-22.7 L [id number] 22:53:00 Test Item Value Reference Range Interpretation Comments SODIUM (test code = NA) 143 MMOL/L 137-145 N [id number] 17:47:00 Test Item Value Reference Range Interpretation Comments CORTISOL (test code = CORTR) 5.32 ug/dL 1.7-22.7 [id number] 17:06:00 Test Item Value Reference Range Interpretation Comments SODIUM (test code = NA) 144 MMOL/L 137-145 N UR CATECHOLAMINE [id number] 12:47:00 Test Item Value Reference Interpretation Comments [...] 24H 424 ug/24 0-510 Performed At : [facility] (test code = hr Fwysbxwkre[address] [facility] [address], [place] [id number] ra Kristen VELASCO Ph:[phone] VENOUS THROMBOPHILIA [id number] 07:49:00 Test Item Value Reference Range Interpretation [...] in samples drawn f rompatients (particularly berta antoniettawen) who are visibly stresse d atthe time [...] ference Range:57 - 163 Antithrombi n Activity, Agrjux293 % Dir ect oral anticoagulants such as [...] olde r: 57 - 157This test was develo ped and its performance characteristics determined by [facility]. It has not been cleared or approvedby [facility] Food and Drug Administration. APTT 23.1 sec This test has not be en validated for monitoringunfra ctionated heparin therapy. aPTT-b ased therapeuticrang es for unfractionated heparin therapy have not beenes tablished. Consider ordering Hepari n anti-Xa(unfract ionated).Reference Range:18 years and older: 22.9 - 30.2APTT 1:1 VISITOR SERVICES TECHNICIAN Testing Not Indicated Not i ndicatedAPTT 1:1 [...] for definitive anti phospholipid syndrome (APS). JThromb Unaf2280;4:295- 306.Reference Range:Negative: <21Beta-2 Glycoprotein I, IgM <10 SMU The reference inter pb reflects a 3SD or 99th percent ileinterval, which is thought to r epresent a potentiallyclin ically significant result in accor dance with theInternationa l Consensus Statement on th e classificationc riteria for definitive anti phospholipid syndrome (APS). JThromb Apsq5650;4:295- 306.Reference Range:Negative: <33Beta-2 Glycoprotein I, IgA <10 DERIAN The reference inter pb reflects a 3SD or 99th percentileinter pb.Reference Range:Negative: <26 Factor II Gene Mutation Result G-G (Normal-Normal) No prothrombin G53159K mutatio n present.Interpr etation: While the patient [...] For in stance, acombination of the prothrombin L05403P mutatio n and thefactor V Leiden mutation may confer an increase inthro mbotic risk in the range of 20-30 fold.Recommenda tions for Genetic Counseling: The prothrombingene mutation is an inherited characteristic. If themutation is present, we rec ommend that the patient andthei r family consider genetic vp & general counsel ing to obtainadditiona l information on inheritance and to identify otherfamily mem bers at risk.Testing Ch aracteristics: Genetic testing providesexcepti onally high sensitivity and specificity. Inaccurateresul ts are limited to rare polymorphi sms in primer bindingsites an d to misidentificati on of specimens by collectorsor la boratory personnel. This assay dete cts only theprothrombin G47953K mutation and does not de tect othergenetic abnormalities.T his test was developed and i ts performance characteristics determined by [facility]. It has not been cleared or approvedby [facility] Food and Drug Administration. References: Presley K, [...] For in stance, acombination of the prothrombin H21228R mutatio n and thefactor V Leiden mutation may confer an increase inthro mbotic risk in the range of 20-30 fold.Recommenda tions for Genetic Counseling: The factor V Leidenmutation is an inherited characteristic. If the mutation ispresent, we r ecommend that the patient and the ir familyconsider genetic vp & general counsel ing to obtain additionalinfor mation on inheritance [...] and Drug Administration. VENOUS THROMBOSIS PROFILETEST CODE: [id number]: THREE TUBES, 2 ML PPP EACH, FROZEN 2 ML SERUM FROZEN 5 ML EDTA WHOLE BLOOD, ROOM TEMP.UR METANEPHRINES FRACT 2018-09-02 07:36:00 Test Item Value Reference Interpretation Comments [...] code = mcg/24h NORMETUR) UR HYDROXYINDOLEACETIC ACID [id number] 07:36:00 Test Item Value Reference Range Interpretation Comments UR HYDROXYINDOLEACETIC 3.9 mg/24 hr 0.0-14.9 Perfo rmed At: BN ACID QT (test code = [facility] 5HIAAU) [address] [id number] tammy Peterson MD Ph:[phone] UR VOLUME (test code = 3500 ML 800-1800 H VOL) ADRENOCORTICOTROPIC [id number] 07:22:00 Test Item Value Reference Range Interpretation Comments ADRENOCORTICOTROPIC HORMONE 14.7 pg/mL 7.2-63.3 ACTH reference (test code = ACTH) interval for samples collected between 7 and10 AM.Performed At : [facility] [address] [place], [place] [id number] Kyle L MD Ph:[phone] UR METANEPHRINES [id number] 07:22:00 Test Item Value Reference Interpretation Comments [...] (test code = NORMETUR) UR HYDROXYINDOLEACETIC ACID [id number] 07:22:00 Test Item Value Reference Range Interpretation Comments UR HYDROXYINDOLEACETIC 3.9 mg/24 hr 0.0-14.9 Perfo rmed At: BN ACID QT (test code = [facility] 5HIAAU) [address] [id number] Peterson MD Ph:[phone] UR VOLUME (test code = 3500 ML 800-1800 H VOL) [id number] 07:12:00 Test Item Value Reference Range Interpretation Comments CORTISOL (test code = CORTR) 3.43 ug/dL 1.7-22.7 UA SPECIFIC [id number] 06:36:00 Test Item Value Reference Range Interpretation Comments UA SPECIFIC GRAVITY (test code = SGU) 1.010 1.003-1.030 N BASIC METABOLIC [id number] 06:03:00 Test Item Value Reference Range Interpretation [...] 9.1 MG/DL 8.4-10.2 N CA) CBC W/AUTO [id number] 05:41:00 Test Item Value Reference Range Interpretation [...] = 0.00 K/mm3 0.0-0.1 N NRBC#) DIFFERENTIAL [id number] 05:41:00 Test Item Value Reference Range Interpretation Comments RBC MORPHOLOGY REQUIRED (test code = RBCM) PLATELET ESTIMATE (test code = PLTEST) ADEQUATE PLATELET MORPHOLOGY (test code = NORMAL PLTMORPH) CBC W/AUTO [id number] 05:41:00 Test Item Value Reference Range Interpretation [...] = 0.00 K/mm3 0.0-0.1 N NRBC#) DIFFERENTIAL [id number] 05:41:00 Test Item Value Reference Range Interpretation Comments RBC MORPHOLOGY REQUIRED (test code = RBCM) PLATELET ESTIMATE (test code = PLTEST) ADEQUATE PLATELET MORPHOLOGY (test code = NORMAL PLTMORPH) UA SPECIFIC [id number] 22:47:00 Test Item Value Reference Range Interpretation Comments UA SPECIFIC GRAVITY (test code = SGU) 1.015 1.003-1.030 N [id number] 21:35:00 Test Item Value Reference Range Interpretation Comments CORTISOL (test code = CORTR) 4.12 ug/dL 1.7-22.7 [id number] 20:56:00 Test Item Value Reference Range Interpretation Comments SODIUM (test code = NA) 141 MMOL/L 137-145 N PITUITARY [id number] 14:40:00 RUN DATE: 09/01/18 [place] - LAB PAGE 1 RUN TIME: 1440 Specimen Inquiry RUN USER: INTERFACE PATIENT: LEIGH FRYE LOC: DELL U #: [id number] AGE/SX: 38/F [facility] DR: Jani Mckoy MD : 80 BED: A DIS: STATUS: ADM IN TLOC: SPEC #: [id number] RECD: 08/30/18 STATUS: SOUT REQ #: [id number] LAST: 08/30/[address] [facility] [address]: Jani Mckoy MD ENTERED: 08/30/18 SP TYPE: PITUIT OTHR DR: Matilde Burnham DPM, Patrick MDORDERED: FS, IMNO, RETIC, SURG PATH LVL 4/2,MORPH IHC, TOUCH PREP EA A, IMMUNO EA ADD'L/4 CODES: [id number] - EXCISIONAL BIOP [id number] - PITUITARY GLAND [id number] - PITUITARY GLAND ADENOMA, NOS [id number] - CELL, NOS ADENOMA, NOS [id number]- CELL, NOS ACIDOPHIL ADENO [place]IES TO: [place] [address] [place] [address] Matilde Burnham E DPM [address] [facility] [address] [place] [address] [place] [address] [facility] [address] [place] [address] PROCEDURES: FS (08/30/18) IMNO (08/31/18) RETIC (08/31/18) SURG PATH LVL 4 (08/30/18) MORPH IHC (08/31/18) TOUCH PREP EA A (08/30/181505) IMMUNO EA ADD'L (08/31/18) TISSUES: A. PITUITARY GLAND, NOS - PITUITARY TUMOR B. PITUITARY GLAND, NOS - PITUITARY TUMOR CONSULTATION Dr. Lubin has reviewed this case and agrees with the diagnosis. CONTINUED ON NEXT PAGE RUN DATE: 09/01/18 [facility] [place] RUN TIME: 1440 Specimen Inquiry RUN USER: INTERFACE SPEC #: [id number] PATIENT: LEIGH FRYE #[id number] (Continued)-- CPT CODESCPT CODE(S): 44235V0 , 70708 , 92612 , 65770 , 74606D2 , 13597 , FINAL DIAGNOSIS A. and B. 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 Pituitary tumor: SUGGESTIVE OF PITUITARY ADENOMA /CB/MB GROSS DESCRIPTION A. Pituitary tumor. Received is a pink tissue fragment (1 x 0.6 x 0.3 cm), entirelysubmitted for frozen section as FS1-TP1 and for permanent section as A1. B. Pituitary tumor. Received are several pieces of pink tissue (1.5 x 1.2 x 0.3 cm in aggregate), entirely submitted B1. /tc/latia MICROSCOPIC DESCRIPTION A. Pituitary tumor. and B. Pituitary tumor. Uniform population of ovoid, uniform cells with abundant eosinophilic cytoplasm and variably stippled chromatin pattern with central to slightly eccentric nuclei. Reticulin special stain, with adequate control, demonstrates a lack of well- organized acini, consistent with adenoma. Focal hyalinized stroma with variable vascularity. Minimal nuclear atypia without conspicuous mitotic activity. [...] No highlighted mitoses. /latia/cm Additional CPT code(s): 69079 CONTINUED ON NEXT PAGE RUN DATE: 09/01/18 [facility] [place] RUN TIME: 1440 Specimen Inquiry RUN USER: INTERFACE SPEC#: [id number] PATIENT: LEIGH FRYE #[id number] (Continued) COMMENT: Sufficient tissue is on reserve to accomplish histologic hormone studies, as clinically appropriate. The permanent section evaluation confirms the gross intraoperative frozen section and touch prep impressions. Signed SIGNATURE ON FILE Cabrera George 09/01/18 144 END OF REPORT [id number] 14:39:00 Test Item Value Reference Range Interpretation Comments CORTISOL (test code = CORTR) 9.19 ug/dL 1.7-22.7 [id number] 14:05:00 Test Item Value Reference Range Interpretation Comments SODIUM (test code = NA) 142 MMOL/L 137-145 N UNABLE TO DRAW BLOOD, REASON:UA SPECIFIC [id number] 13:41:00 Test Item Value Reference Range Interpretation Comments UA SPECIFIC GRAVITY (test code = SGU) 1.020 1.003-1.030 N UA SPECIFIC [id number] 09:02:00 Test Item Value Reference Range Interpretation Comments UA SPECIFIC GRAVITY (test code = SGU) 1.015 1.003-1.030 N [id number] 08:19:00 Test Item Value Reference Range Interpretation Comments SODIUM (test code = NA) 144 MMOL/L 137-145 N UR METANEPHRINES [id number] 07:28:00 Test Item Value Reference Range Interpretation Comments UR METANEPHRINES 24HR (test code = mcg/24h 35-460 MET24T) UR METANEPHRINES (TOTAL) (test code ug/L = METTU) NORMETANEPHRINE (test code = ug/L NORMETT) NORMETANEPHRINE 24 HR (test code = mcg/24h 82-500 NORMETUR) UR HYDROXYINDOLEACETIC ACID [id number] 07:28:00 Test Item Value Reference Range Interpretation Comments UR HYDROXYINDOLEACETIC 3.9 mg/24 hr 0.0-14.9 Perfo rmed At: BN ACID QT (test code = [facility] 5HIAAU) [address] [id number] tammy Peterson MD Ph:[phone] UR VOLUME (test code = 3500 ML 800-1800 H VOL) UR METANEPHRINES [id number] 07:23:00 Test Item Value Reference Range Interpretation Comments UR METANEPHRINES 24HR (test code = mcg/24h 35-460 MET24T) UR METANEPHRINES (TOTAL) (test code ug/L = METTU) NORMETANEPHRINE (test code = ug/L NORMETT) NORMETANEPHRINE 24 HR (test code = mcg/24h 82-500 NORMETUR) UR HYDROXYINDOLEACETIC ACID [id number] 07:23:00 Test Item Value Reference Range Interpretation Comments UR HYDROXYINDOLEACETIC 3.9 mg/24 hr 0.0-14.9 Perfo rmed At: BN ACID QT (test code = [facility] 5HIAAU) [address] [id number] Peterson MD Ph:[phone] UR VOLUME (test code = ML 800-1800 VOL) AB PARIETAL [id number] 07:22:00 Test Item Value Reference Range Interpretation Comments AB PARIETAL CELL 4.10 Units 0.0-20.0 Negative 0 .0 - 20.0 (test code = Equivocal 20.1 - 24.9 PARIETALAB) Positive >24.9P arietal Cell Antibodies are found in 90% of patie ntswith pernicious anem ia and 30% of first degree relatives with pernicious anemia.Performe d At: [facility] [place], [place] [id number] Peterson MD Ph:[phone] [id number] 07:22:00 Test Item Value Reference Interpretation Comments Range ALDOSTERONE < 1.0 0.0-30.0 This test was d eveloped and (test code = ng/dL its performance ALDOS) characteristics determined by [facility]. It has not been cleared orappro angela by the Food and Drug Administration. Performed At: [facility] [address] [id number] Peterson MD Ph:[phone]~~ ~~~~~~~~~~~~~~~ ~~~~~~~~~~~~~~~ ~~~~~~~~~~~~~~~ ~~~~~~~~~~~~~AL DOSTERONE REFERENCE RANGE S: SUPINE......... 0 - 15.9 NG/DL UPRIGHT........ ..4 - 39 NG/DL ADRENAL VEIN..2 00 - 800 NG/DL NORMAL SODIUM I NTAKE (100 - 200 MEQ/DAY)~~~~~~~ ~~~~~~~~~~~~~~~ ~~~~~~~~~~~~~~~ ~~~~~~~~~~~~~~~ ~~~~~~~~ CBC W/AUTO [id number] 06:29:00 Test Item Value Reference Range Interpretation [...] = 0.00 K/mm3 0.0-0.1 N NRBC#) PROTHROMBIN [id number] 06:22:00 Test Item Value Reference Range Interpretation Comments PROTHROMBIN TIME 10.1 SECONDS 9.6-11.6 N PATIENT (test code = PTP) INTERNATIONAL NORMAL 1.0 0.8-1.1 N The INR is to be RATIO (test code = used only for INR) monitoring oral anticoagulantth erap y. INDICATION I NR VALUE ---- ---- ---- -------1. Prophylaxis, de ep venous thrombos is, including high risk surgery. 2.0 - 3.0 2. Prophylaxis, deep venous thrombosis, hip surgery, treatm ent for deep venous thrombosis or pulmonary prevention of systemic emboli sm in patients wit h valvular heart disease, atrial fibrillation, tissue heart va lve, or acute myocar dial infarction. 2.0 - 3.0 3. Auto Research Engineer al prosthesis hear t valves, recurr ent systemic emboli sm. 3.0 - 4.5 PTT [id number] 06:22:00 Test Item Value Reference Range Interpretation Comments PTT ACTIVATED (test code = APTT) 25.0 SECONDS 22.0-33.0 N BASIC METABOLIC [id number] 04:51:00 Test Item Value Reference Range Interpretation [...] 8.8 MG/DL 8.4-10.2 N CA) UA SPECIFIC [id number] 03:20:00 Test Item Value Reference Range Interpretation Comments UA SPECIFIC GRAVITY (test code = SGU) 1.005 1.003-1.030 N [id number] 23:45:00 Test Item Value Reference Range Interpretation Comments SODIUM (test code = NA) 142 MMOL/L 137-145 N [id number] 21:37:00 Test Item Value Reference Range Interpretation Comments SODIUM (test code = NA) 141 MMOL/L 137-145 N UA SPECIFIC [id number] 20:17:00 Test Item Value Reference Range Interpretation Comments UA SPECIFIC GRAVITY (test code = SGU) 1.010 1.003-1.030 N UA SPECIFIC [id number] 17:42:00 Test Item Value Reference Range Interpretation Comments UA SPECIFIC GRAVITY (test code = SGU) 1.015 1.003-1.030 N [id number] 16:52:00 Test Item Value Reference Range Interpretation Comments SODIUM (test code = NA) 139 MMOL/L 137-145 N [id number] 11:35:00 Test Item Value Reference Range Interpretation Comments SODIUM (test code = NA) 140 MMOL/L 137-145 N UA SPECIFIC [id number] 08:28:00 Test Item Value Reference Range Interpretation Comments UA SPECIFIC GRAVITY (test code = SGU) 1.010 1.003-1.030 N UR SODIUM [id number] 08:28:00 Test Item Value Reference Range Interpretation Comments UR SODIUM RANDOM (test code = BRIGIDO) 91 MMOL/L 27-287 N - CT HEAD/BRAIN W/O [id number] 08:17:00 Patient Name: LEIGH FRYE Unit No: [id number] EXAMS: CPT CODE: [id number] CT HEAD/BRAIN W/O CONT 30393 Dictation location: U19. CT HEAD WITHOUT CONTRAST. [...] of the inferior rectus muscle, unchanged. IMPRESSION: Interval postoperative changes of a transsphenoidal resection of pituitary tumor with expected changes seen in the region. Otherwise, no other intracranial abnormality. at 0817 Reported and signed by: Keri Avila MD CC: Michael Martínez NP Technologist: RT Ajith(R)(CT) CTDI: DLP: Trnscrpt: 08/31/2018 (0817) t.SDR.SP17 [facility] NAME: LEIGH FRYE [address] PHYS: [place] [address] : 1980 AGE: 38 SEX: F LOC: Z.SI09 A PHONE #: [phone] EXAM DATE: 08/31/2018 STATUS: ADM IN FAX #: [phone] RAD #:D/C DT PAGE 1 Signed Report Patient Name: LEIGH FRYE Unit No: [id number] EXAMS: CPT CODE: [id number] CT HEAD/BRAIN W/O CONT 13130 (Continued) Orig Print D/T: S: 08/31/2018 (0820) [facility] NAME: LEIGH FRYE [address] PHYS: Tanya Syed, [place] [address] : 1980 AGE: 38 SEX: F LOC: Z.SI09 A PHONE #: [phone] EXAM DATE: 08/31/2018 STATUS: ADM IN FAX #: [phone] RAD #: D/C DT PAGE 2 Signed ReportUA SPECIFIC [id number] 08:12:00 Test Item Value Reference Range Interpretation Comments UA SPECIFIC GRAVITY (test code = SGU) 1.010 1.003-1.030 N UR SODIUM [id number] 08:12:00 Test Item Value Reference Range Interpretation Comments UR SODIUM RANDOM (test code = BRIGIDO) MMOL/L 27-287 [id number] 07:31:00 Test Item Value Reference Range Interpretation Comments THYROGLOBULIN (test code = 6.3 N ORMAL : 1.5-38.5 THYROGL) ng/ml METANEPHRINES, FREE, [id number] 07:24:00 Test Item Value Reference Range Interpretation Comments METANEPHRINES 12 pg/mL 0-62 This test was developed and its , FREE, performance PLASMA (test characteristics determined by code = METAF) [facility]. It begum s not been cleared orapproved by [facility] Food and Drug Administration. Concentrations of Normetanephrine between 146 and 487pg/mL, and M etanephrine between 63 and 255 pg/mL areconsidered i ndeterminate. Follow-up bioch emical testing isrecommended w hen patient levels fall wit hin thisindetermina te range. These tests include r epeat testing ofplasma/urinar y fractionated metanephrines a nd plasmacatechola mines.Performed At: [facility] [address] [id number] ra Kristen VELASCO Ph:[phone] [id number] 03:54:00 Test Item Value Reference Range Interpretation Comments CORTISOL (test code = CORTR) 78.90 ug/dL 1.7-22.7 H [id number] 01:35:00 Test Item Value Reference Range Interpretation Comments SODIUM (test code = NA) 142 MMOL/L 137-145 N UA SPECIFIC [id number] 00:52:00 Test Item Value Reference Range Interpretation Comments UA SPECIFIC GRAVITY (test code = SGU) 1.005 1.003-1.030 N UA SPECIFIC [id number] 17:15:00 Test Item Value Reference Range Interpretation Comments UA SPECIFIC GRAVITY (test code = SGU) 1.025 1.003-1.030 N [id number] 16:51:00 Test Item Value Reference Range Interpretation Comments CORTISOL (test code = CORTR) 46.60 ug/dL 1.7-22.7 H UNABLE TO DRAW BLOOD, REASON: CBNNOTIFIED PATIENT CARE STAFF: DAVID GODWIN 08/30/18 AT 1534 BY Christian Montelongo METABOLIC [id number] 16:06:00 Test Item Value Reference Range Interpretation [...] 08/30/18 AT 1533 BY Tim Montelongo W/AUTO [id number] 15:57:00 Test Item Value Reference Range Interpretation [...] AT 1534 BY Demetrius Montelongo ARTERIAL BLOOD [id number] 12:31:00 Test Item Value Reference Range Interpretation Comments POC ARTERIAL BLOOD GAS 7.396 7.35-7.45 N Previ ously reported PH (test code = result: 7.41 1 Edited POCPHA) by: HEIDIBGG o n 08/30/18:258995 9 1230: POC ABG PH previously repo rted as: 7.411 POC ARTERIAL BLOOD GAS 40.9 mmHg 35.0-45.0 N Previ ously reported PCO2 (test code = result: 39 .2 NRHIVM6L) mmHgEdited by: HEIDIBGG on 08/30/18:680401 9 1230: POCPCO2 A previously repo rted as: 39.2 mmHg POC ARTERIAL BLOOD GAS 87 75.0-100.0 N Previ ously reported PO2 (test code = result: 82 Edited KRVNJ7K) by: HEIDIBGG o n 08/30/18: 9 1230: POC PO2 A previously repo rted as: 82 POC HCO3 ARTERIAL 25.1 MMOL/L 20.0-26.0 N (test code = KMJHMJ0H) POC BASE EXCESS (test 0.0 MMOL/L -3.0-3.0 [...] MMOL/L 0.4-2.0 N code = POCLAC) HCG [id number] 11:02:00 Test Item Value Reference Range Interpretation Comments HCG POC (test < 5.0 IU/L Results of 5.0 - 25.0 IU/L code = HCGPOC) are indetermi eugenia and do not ruleout pre gnancy. Because hCG pb ues double approximately e very48 hours in a norm al , alethea ents with low levels ofhC G should be resampled and r etested after 48 hours toconfirm . T3,T4 [id number] 07:15:00 Test Item Value Reference Range Interpretation Comments T3 UPTAKE (test code = T3UP) 34.6 % UP 23.5-40.5 N T4 (THYROXINE) (test code = T4) 7.16 UG/DL 5.53-11.0 N T7 (FREE THYROXINE INDEX) (test 2.5 1.2-4.3 N code = T7) ADRENOCORTICOTROPIC [id number] 07:15:00 Test Item Value Reference Range Interpretation Comments ADRENOCORTICOTROPIC HORMONE 35.5 pg/mL 7.2-63.3 ACTH reference (test code = ACTH) interval for samples collected between 7 and10 AM. FOLLICLE STIM LEUTINIZING [id number] 07:15:00 Test Item Value Reference Range Interpretation Comments LUTEINIZING HORMONE 6.60 mIU/mL () Adult F emale: (test code = LH) Follicular phase 2.4 - 12.6 Ovulation phase 14.0 - 95.6 Lut eal phase 1.0 - 11. 4 Postmenopausal 7.7 - 58.5LH INTERPRE TIVE DATA: MALES: 1. 5-9.3 NORMAL MENSTRUA TING FEMALES: FOLLIC ULAR PHASE: 1.9-12.5 MID-CYCLE PHASE : 8.7-76.3 LUTEAL PHASE: 0.5-16.9 POSTEMNOPAUSAL FEMALES: 15.9-5 4 ALL VAULES GIVEN IN OG-INTERNATI ONAL UNITS PER OG LITER FOLLICLE STIMULATING 7.0 mIU/mL () Adult Female: HORMONE (test code = Follicu lar phase 3.5 - FSH) 12.5 Ovulation phase 4.7 - 21.5 Lut eal phase 1.7 - 7.7 Postmenopausal 25.8 - 134.8FSH INTERP RETIVE DATA: MALES: 1. 4 - 18.1 NOMALLY MENSTRUATING FE MALES: FOLLICULAR PHAS E: 2.5 - 10.2 MID-CYCL E PEAK: 3.4 - 33.4 LUTE AL PHASE: 1.5 - 9. 1 POSTMENOPAUSAL FEMALES: 23.0 - 116.3All values given in og-Internati onals Unit per millil iter GROWTH HORMONE (HUMAN)2018-08-30 07:15:00 Test Item Value Reference Range Interpretation Comments GROWTH HORMONE 0.1 ng/mL 0.0-10.0 Performed At: HD (HUMAN) (test code = [facility] [id number] GH) [place], [place] [id number] yovany Farfan MD Ph:[phone] rformed At: [facility] [address] [id number] ra Kristen VELASCO Ph:[phone] INSULIN-LIKE GROWTH FACTOR [id number] 07:15:00 Test Item Value Reference Range Interpretation Comments INSULIN-LIKE GROWTH FACTOR I (test 147 ng/mL 69-227 code = INSLKGF1) [id number] 07:15:00 Test Item Value Reference Range Interpretation Comments PROLACTIN (test code = 42.1 ng/mL 4.8-23.3 H Perfo rmed At: HD PROLAC) [facility] [address] [id number] Kyle L MD Ph:[phone] PROTHROMBIN [id number] 07:06:00 Test Item Value Reference Range Interpretation Comments PROTHROMBIN TIME 10.3 SECONDS 9.6-11.6 N PATIENT (test code = PTP) INTERNATIONAL NORMAL 1.0 0.8-1.1 N The INR is to be RATIO (test code = used only for INR) monitoring oral anticoagulantth erap y. INDICATION I NR VALUE ---- ---- ---- -------1. Prophylaxis, de ep venous thrombos is, including high risk surgery. 2.0 - 3.0 2. Prophylaxis, deep venous thrombosis, hip surgery, treatm ent for deep venous thrombosis or pulmonary prevention of systemic emboli sm in patients wit h valvular heart disease, atrial fibrillation, tissue heart va lve, or acute myocar dial infarction. 2.0 - 3.0 3. Auto Research Engineer al prosthesis hear t valves, recurre nt systemic emboli sm. 3.0 - 4.5 PTT [id number] 07:06:00 Test Item Value Reference Range Interpretation Comments PTT ACTIVATED (test code = APTT) 28.7 SECONDS 22.0-33.0 N - CT HD/BR W W/O [id number] 18:59:00 Patient Name: LEIGH FRYE Unit No: [id number] EXAMS: CPT CODE: [id number] CT HD/BR W W/O CONT 21746 CLINICAL INFORMATION: Evaluate pituitary tumor. Dictation Location: R 16 COMPARISON: No prior study available for review at this time.. Technique: Pre and postcontrast CT head was done in the usual fashion. Sagittal and coronal reconstructions. Appropriate dose reduction and image optimization technique was used. DLP 2461 mGy-cm.. FINDINGS: There is a circumscribed soft tissue [...] evaluation with MRI may be helpful. 2. Old right orbital blowout fracture with subluxation of the inferior rectus muscle. at 1859 Reported and signed by: Pranav Chaudhari M.D. CC: Michael Martínez NP Technologist: RT Jonathan(R)(CT); Kade Hanna CTDI: DLP: Trnscrpt: 08/29/2018 (1859) t.SDR.AGV [facility] NAME: LEIGH FRYE [id number] PHYS: [place] [address] : 1980 AGE: 38 SEX: F LOC: Z.535 A PHONE #: [phone] EXAM DATE: 08/29/2018 STATUS: ADM IN FAX #: [phone] RAD #: D/C DT PAGE 1 Signed Report Patient Name: LEIGH FRYE Unit No: [id number] EXAMS: CPT CODE: [id number] CT HD/BR W W/O CONT 32899 (Continued) Orig Print D/T: S: 08/29/2018 (1902) [facility] NAME: LEIGH FRYE [address] PHYS: Tanya Syed, [place] [address] : 1980 AGE: 38 SEX: F LOC: Z.535 A PHONE #: [phone] EXAM DATE: 08/29/2018 STATUS: ADM IN FAX #: [phone] RAD #: D/C DT PAGE 2 Signed ReportBASIC METABOLIC [id number] 15:55:00 Test Item Value Reference Range Interpretation [...] = 9.7 MG/DL 8.4-10.2 N CA) HCG [id number] 15:55:00 Test Item Value Reference Range Interpretation Comments HCG SERUM (test < 2 IU/L ~~~~~~~~~~~~ ~~~~~~~~~~~~~~~~ code = HCG) ~~~~~~~~~~~~~~~ ~~~~~~~~~~~~~ ~~~~INTERPRETAT ION OF BHCG QN PERFORMED AT [facility] 0.2-1 W EEKS AFTER CONCEPTION 5-50 1-2 WEEKS AFTER CONCEPTIO N 50-500 2-3 WEEKS AFTER CON CEPTION 100-5,000 3-4 W EEKS AFTER CONCEPTION 500- 10,000 4-5 WEEKS AFTER CON CEPTION 1,000-50,000 5- 6 WEEKS AFTER CONCEPTION 10,0 00-100,0006-8 WEEKS AFTER CON CEPTION 15,000-200,0002 -3 MONTHS 10,000-100,000 All values given in og- International Units per og liter. SPECIMENS WITH B-HCG LEVELS LESS THAN OR EQ UAL TO 5 og-Internati onal Units per milliliter WILL BE REPORTED ZER O OR "NEGATIVE." SPE CIMENS WITHB-HCG LEVEL S GREATER THAN OR EQUAL T O 25 og-Internati onal Units per milliliter WILL BEREPORTED " POSITIVE." SPECIMENS WITH B-HCG LEVELS GREATERTHAN 5 og-Internati onal Units per milliliter AND LESS THAN 25 og-Automation Technician ational Units per milliliterS HOLISA HAVE ADDITIONAL BLOO D SAMPLE DRAWN 48 HOURSL ATER AND REPEATED.~~~~~~ ~~~~~~~~~~~~~ ~~~~~~~~~~~~~~~ ~~~~~~~~~~~~~ ~~~~~~~~~~~~~ PROTHROMBIN [id number] 15:45:00 Test Item Value Reference Range Interpretation Comments PROTHROMBIN TIME 10.2 SECONDS 9.6-11.6 N PATIENT (test code = PTP) INTERNATIONAL NORMAL 1.0 0.8-1.1 N The INR is to be RATIO (test code = used only for INR) monitoring oral anticoagulantth erap y. INDICATION I NR VALUE ---- ---- ---- -------1. Prophylaxis, de ep venous thrombos is, including high risk surgery. 2.0 - 3.0 2. Prophylaxis, deep venous thrombosis, hip surgery, treatm ent for deep venous thrombosis or pulmonary prevention of systemic emboli sm in patients wit h valvular heart disease, atrial fibrillation, tissue heart va lve, or acute myocar dial infarction. 2.0 - 3.0 3. Auto Research Engineer al prosthesis hear t valves, recurre nt systemic emboli sm. 3.0 - 4.5 BASIC METABOLIC [id number] 15:39:00 Test Item Value Reference Range Interpretation [...] = 9.7 MG/DL 8.4-10.2 N CA) HCG [id number] 15:39:00 Test Item Value Reference Range Interpretation Comments HCG SERUM (test code = HCG) IU/L CBC W/AUTO [id number] 15:29:00 Test Item Value Reference Range Interpretation [...] 0.00 K/mm3 0.0-0.1 N NRBC#) LUPUS (LE) [id number] 07:42:00 Test Item Value Reference Range Interpretation Comments LUPUS (SLE) PANEL AI 0.0-0.9 Systemic L upus Profile A RESULTS (test code = LENS BLOCK GAUGER Ant ibodies <0.2 AI 0.0 SLEPANELR) - 0.9 Traylor Ant ibodies <0.2 AI 0.0 - 0.9 RA Latex Turbid. <10.0 I U/mL 0.0 - 13.9 Antichroma tin Antibodies <0.2 AI 0.0 - 0.9 Sjogren's A nti-SS-A <0.2 AI 0.0 - 0 .9 Sjogren's Anti-SS-B <0.2 AI 0.0 - 0.9 Anti-DNA (DS) A b Qn <1 IU/mL 0 - 9 Neg ative <5 Equivocal 5 - 9 Positive >9 T3,T4 [id number] 07:23:00 Test Item Value Reference Range Interpretation Comments T3 UPTAKE (test code = T3UP) 34.6 % UP 23.5-40.5 N T4 (THYROXINE) (test code = T4) 7.16 UG/DL 5.53-11.0 N T7 (FREE THYROXINE INDEX) (test 2.5 1.2-4.3 N code = T7) ADRENOCORTICOTROPIC [id number] 07:23:00 Test Item Value Reference Range Interpretation Comments ADRENOCORTICOTROPIC HORMONE (test code pg/ml 7.2-63.3 = ACTH) FOLLICLE STIM LEUTINIZING [id number] 07:23:00 Test Item Value Reference Range Interpretation Comments LUTEINIZING HORMONE 6.60 mIU/mL () Adult F emale: (test code = LH) Follicular phase 2.4 - 12.6 Ovulatio n phase 14.0 - 95.6 Lut eal phase 1.0 - 11. 4 Postmenopausal 7.7 - 58.5LH INTERPRE TIVE DATA: MALES: 1. 5-9.3 NORMAL MENSTRUA TING FEMALES: FOLLIC ULAR PHASE: 1.9-12.5 MID-CYCLE PHASE : 8.7-76.3 LUTEA L PHASE: 0.5-16.9 POSTEMNOPAUSAL FEMALES: 15.9-5 4 ALL VAULES GIVEN IN OG-INTERNATI ONAL UNITS PER OG LITER FOLLICLE STIMULATING 7.0 mIU/mL () Adult Female: HORMONE (test code = Follicu lar phase 3.5 - FSH) 12.5 Ovulation phase 4.7 - 21.5 Lute al phase 1.7 - 7.7 Postmenopausal 25.8 - 134.8FSH INTERP RETIVE DATA: MALES: 1 .4 - 18.1 NOMALLY MENSTRUATING FE MALES: FOLLICULAR PHAS E: 2.5 - 10.2 MID-CYCL E PEAK: 3.4 - 33.4 LUTE AL PHASE: 1.5 - 9. 1 POSTMENOPAUSAL FEMALES: 23.0 - 116.3All values given in og-Internati onals Unit per millil iter GROWTH HORMONE (HUMAN)2018-08-29 07:23:00 Test Item Value Reference Range Interpretation Comments GROWTH HORMONE (HUMAN) (test code = ng/ml <=13.0 GH) INSULIN-LIKE GROWTH FACTOR [id number] 07:23:00 Test Item Value Reference Range Interpretation Comments INSULIN-LIKE GROWTH FACTOR I (test ng/ml 81-225 code = INSLKGF1) [id number] 07:23:00 Test Item Value Reference Range Interpretation Comments PROLACTIN (test code = 42.1 ng/mL 4.8-23.3 H Perfo rmed At: HD PROLAC) [facility] [address] [id number] Etienne Farfan MD Ph:[phone] [id number] 21:15:00 Test Item Value Reference Range Interpretation Comments AMYLASE (test code = VREO) 90 UNITS/L 30-110 N - US HEAD AND [id number] 14:27:00 Patient Name: LEIGH FRYE Unit No: [id number] EXAMS: CPT CODE: [id number] US HEAD AND NECK 79066 Exam:Parathyroid ultrasound. Location: Clinical Indication:38-year-old with elevated parathormone. Comparison:None Findings:Ultrasound of the neck was performed. A parathyroid mass or lymphadenopathy is not identified. The thyroid itself was not completely evaluated. However, the machine burrer identifies a 2.7 cm well-circumscribed ovoid mass of the right thyroid. Impression: 1. Parathyroid mass, lymphadenopathy is not identified. 2. 2.7 cm smoothly marginated mass of the right thyroid gland. The thyroid is not completely evaluated on this study. Follow-up with dedicated thyroid evaluationis recommended. at 1427 Reported and signed by: Ko Valles M.D. CC: Technologist: Christina Frost RDMS(OB)(AB) Transcrpt Date/Tm/Trnsp: 08/28/2018 (1427) [id number] Orig Print D/T: S: 08/28/2018 (1398) [facility] NAME: LEIGH FRYE [id number] [place] PHYS: [place] [address] : 1980 AGE:38 SEX: F LOC: ZJose A PHONE #: [phone] EXAM DATE: 08/28/2018 STATUS: ADMIN FAX #: [phone] RADIOLOGY NO: PAGE 1 Signed ReportVITAMIN [id number] 09:57:00 Test Item Value Reference Range Interpretation Comments VITAMIN B12 (test code = VITB12) 266 pg/mL [id number] N FOLIC ACID BY [id number] 09:57:00 Test Item Value Reference Range Interpretation Comments FOLIC ACID BY MIKE 6.2 ng/mL REFERENCE VALUES: (test code = FOLR) NORMAL: 2 .76 - >20 ng/ML DEFICIENT: 1.04 - 2.79 [...] (test code = FESAT) % 12-57 HGB [id number] 06:09:00 Test Item Value Reference Range Interpretation Comments HEMOGLOBIN (test code = HGB) 8.7 G/DL 11.2-14.9 L HEMATOCRIT (test code = HCT) 29.1 % 33.2-43.5 L PARATHYROID HORMONE [id number] 20:27:00 Test Item Value Reference Range Interpretation Comments PARATHYROID HORMONE INTACT (test 106.9 pg/mL 7.5-53.5 H code = PARAI) PLATELET [id number] 18:01:00 Test Item Value Reference Range Interpretation Comments PLATELET COUNT (test code = PLT) 305 K/MM3 129-368 N POC ARTERIAL BLOOD [id number] 15:07:00 Test Item Value Reference Range Interpretation Comments POC ARTERIAL BLOOD GAS PH (test 7.411 7.35-7.45 N code = POCPHA) POC ARTERIAL BLOOD GAS PCO2 (test 39.2 mmHg 35.0-45.0 N code = OVHVUU1B) POC ARTERIAL BLOOD GAS PO2 (test 82 75.0-100.0 N code = TBDCO0F) POC HCO3 ARTERIAL (test code = 25.1 MMOL/L 20.0-26.0 N VJCQPV0P) POC BASE EXCESS (test code = 0.0 [...] = 0.87 MMOL/L 0.4-2.0 N POCLAC) CORTISOL [id number] 10:38:00 Test Item Value Reference Range Interpretation Comments CORTISOL AM (test code = CORTAM) 4.55 ug/dL 4.46-22.7 N T4 [id number] 02:18:00 Test Item Value Reference Range Interpretation Comments T4 FREE (test code = T4F) 0.9 NG/DL 0.78-2.19 N THYROID STIMULATING [id number] 01:20:00 Test Item Value Reference Range Interpretation Comments THYROID STIMULATING 0.633 MIU/L 0.465-4.68 N Please b e aware that HORMONE (test code = bias re sults for TSH TSH) may occur forpa tient who are taking Biotin suppleme nts. T3,T4 [id number] 01:06:00 Test Item Value Reference Range Interpretation Comments T3 UPTAKE (test code = T3UP) 34.6 % UP 23.5-40.5 N T4 (THYROXINE) (test code = T4) 7.16 UG/DL 5.53-11.0 N T7 (FREE THYROXINE INDEX) (test 2.5 1.2-4.3 N code = T7) ADRENOCORTICOTROPIC [id number] 01:06:00 Test Item Value Reference Range Interpretation Comments ADRENOCORTICOTROPIC HORMONE (test code pg/ml 7.2-63.3 = ACTH) FOLLICLE STIM LEUTINIZING [id number] 01:06:00 Test Item Value Reference Range Interpretation Comments LUTEINIZING HORMONE (test code = See note LH) FOLLICLE STIMULATING HORMONE (test See Note code = FSH) GROWTH HORMONE (HUMAN)2018-08-26 01:06:00 Test Item Value Reference Range Interpretation Comments GROWTH HORMONE (HUMAN) (test code = ng/ml <=13.0 GH) INSULIN-LIKE GROWTH FACTOR [id number] 01:06:00 Test Item Value Reference Range Interpretation Comments INSULIN-LIKE GROWTH FACTOR I (test ng/ml 81-225 code = INSLKGF1) [id number] 01:06:00 Test Item Value Reference Range Interpretation Comments PROLACTIN (test code = PROLAC) NG/ML 4.8-23.3 CARDIAC [id number] 14:05:00 Test Item Value Reference Range Interpretation Comments Troponin-I (test code no gt See_Comment [Auto mated message] The = Troponin-I) system which g enerated this result transmit kenroy reference range : <=0.40. The reference r alee was not used to interpr et this result as elton l/abnormal. [facility] CenterMeterHeroAC [id number] 14:05:00 Test Item Value Reference Range Interpretation Comments Troponin-I (test code no gt See_Comment [Auto mated message] The = Troponin-I) system which g enerated this result transmit kenroy reference range : <=0.40. The reference r alee was not used to interpr et this result as elton l/abnormal. [facility] CenterGociety [id number] 14:05:00 Test Item Value Reference Range Interpretation Comments Troponin-I (test code no gt See_Comment [Auto mated message] The = Troponin-I) system which g enerated this result transmit kenroy reference range : <=0.40. The reference r alee was not used to interpr et this result as elton l/abnormal. [facility] [employer] [id number] 14:05:00 Test Item Value Reference Range Interpretation Comments Troponin-I (test code no gt See_Comment [Auto mated message] The = Troponin-I) system which g enerated this result transmit kenroy reference range : <=0.40. The reference r alee was not used to interpr et this result as elton l/abnormal. [facility]landsVlbwnghFEJHNSXCNIGUJ8884-56-00 09:22:00 Test Item Value Reference Range Interpretation Comments Prolactin Lvl (test code = Prolactin 33.0 Lvl) [facility] CenterFulusjxZGPAWAAKZZ5642-69-03 09:22:00 Test Item Value Reference Range Interpretation Comments IGF I (test code = IGF I) 140 69-227 [facility]landsZfzzgmpPBJRCDRPLXNSC5998-92-54 09:22:00 Test Item Value Reference Range Interpretation Comments Prolactin Lvl (test code = Prolactin 33.0 Lvl) [facility] CenterRqahaaqRMUHPCARNO8622-42-52 09:22:00 Test Item Value Reference Range Interpretation Comments IGF I (test code = IGF I) 140 69-227 [facility]HierayrMMKOIXTXZPWXG3685-07-08 09:22:00 Test Item Value Reference Range Interpretation Comments Prolactin Lvl (test code = Prolactin 33.0 Lvl) [facility] CenterXwimuzcKDEMDAHEXP1728-69-87 09:22:00 Test Item Value Reference Range Interpretation Comments IGF I (test code = IGF I) 140 69-227 [facility] TexasDmbwyzvIFEKMPUWITXJJ9422-39-53 09:22:00 Test Item Value Reference Range Interpretation Comments Prolactin Lvl (test code = Prolactin 33.0 Lvl) [facility] CenterByiibwxYKZGEHPSTF0113-77-22 09:22:00 Test Item Value Reference Range Interpretation Comments IGF I (test code = IGF I) 140 69-227 [place] [id number] 22:42:00 Test Item Value Reference Range Interpretation Comments FSH (test code = FSH) 5.3 [facility] CenterPzhflxaKYQCJEDGTOALU3030-42-31 22:42:00 Test Item Value Reference Range Interpretation Comments LH (test code = LH) 1.93 [facility] [id number] 22:42:00 Test Item Value Reference Range Interpretation Comments ACTH Lvl (test code = 41 See_Comment [Auto mated message] The ACTH Lvl) system which ge nerated this result transmit kenroy reference range : <=46. The reference range was not used to interpr et this result as elton l/abnormal. [facility]l[id number] 22:42:00 Test Item Value Reference Range Interpretation Comments FSH (test code = FSH) 5.3 [facility] TexasUpfwyefXMQCGXMOVQHYF7358-07-72 22:42:00 Test Item Value Reference Range Interpretation Comments LH (test code = LH) 1.93 [facility] CenterannInlet TechnologiesIAL [id number] 22:42:00 Test Item Value Reference Range Interpretation Comments ACTH Lvl (test code = 41 See_Comment [Auto mated message] The ACTH Lvl) system which ge nerated this result transmit kenroy reference range : <=46. The reference range was not used to interpr et this result as elton l/abnormal. [facility] CenterCtyxtwsQJTHJLZKDRLFU7866-94-07 22:42:00 Test Item Value Reference Range Interpretation Comments FSH (test code = FSH) 5.3 [facility] GakoshyCSFCZPYYCCXHI0221-51-12 22:42:00 Test Item Value Reference Range Interpretation Comments LH (test code = LH) 1.93 [facility] CenterGnamGnam [id number] 22:42:00 Test Item Value Reference Range Interpretation Comments ACTH Lvl (test code = 41 See_Comment [Auto mated message] The ACTH Lvl) system which ge nerated this result transmit kenroy reference range : <=46. The reference range was not used to interpr et this result as elton l/abnormal. [facility] CenterPwvhsssJATIOJVWBICLT3997-05-75 22:42:00 Test Item Value Reference Range Interpretation Comments FSH (test code = FSH) 5.3 [facility] CenterLiaoqnfBIKSYDUTJCGHE1584-76-08 22:42:00 Test Item Value Reference Range Interpretation Comments LH (test code = LH) 1.93 [facility] CenterGnamGnam [id number] 22:42:00 Test Item Value Reference Range Interpretation Comments ACTH Lvl (test code = 41 See_Comment [Auto mated message] The ACTH Lvl) system which ge nerated this result transmit kenroy reference range : <=46. The reference range was not used to interpr et this result as elton l/abnormal. [facility] [employer] [id number] 10:34:00 Test Item Value Reference Range Interpretation Comments eGFR (test code = eGFR) 104 [facility] [employer] [id number] 10:34:00 Test Item Value Reference Range Interpretation Comments Calcium Lvl (test code = Calcium Lvl) 8.7 8.5-10.5 [facility] [employer] [id number] 10:34:00 Test Item Value Reference Range Interpretation Comments Sodium Lvl (test code = Sodium Lvl) 137 135-145 [facility]2019-06-04 10:34:00 Test Item Value Reference Range Interpretation Comments Chloride Lvl (test code = Chloride Lvl) 104 95-109 [facility]2019-06-04 10:34:00 Test Item Value Reference Range Interpretation Comments Potassium Lvl (test code = Potassium 4.1 3.5-5.1 Lvl) [facility]2019-06-04 10:34:00 Test Item Value Reference Range Interpretation Comments AGAP (test code = AGAP) 11.1 10.0-20.0 [facility]2019-06-04 10:34:00 Test Item Value Reference Range Interpretation Comments CO2 (test code = CO2) 26 24-32 [facility]2019-06-04 10:34:00 Test Item Value Reference Range Interpretation Comments BUN (test code = BUN) 15 7-22 [facility]2019-06-04 10:34:00 Test Item Value Reference Range Interpretation Comments Creatinine Lvl (test code = Creatinine 0.73 0.50-1.40 Lvl) [facility]2019-06-04 10:34:00 Test Item Value Reference Range Interpretation Comments Glucose Lvl (test code = Glucose Lvl) 86 70-99 [facility] TexasHgqoqhcYZIBMGDOEVJQX3870-42-43 10:34:00 Test Item Value Reference Range Interpretation Comments Prolactin Lvl (test code = Prolactin 31.4 Lvl) [facility] CampusIzhyoymFZAYXGXVTW0755-10-65 10:34:00 Test Item Value Reference Range Interpretation Comments MPV (test code = MPV) 7.3 7.4-10.4 [facility] CampusZyivvnvPPSZXTMHKJ9106-96-26 10:34:00 Test Item Value Reference Range Interpretation Comments MCV (test code = MCV) 69.5 80.0-98.0 [facility] CampusYsaejouSYDTLTKXDE5226-63-82 10:34:00 Test Item Value Reference Range Interpretation Comments Hct (test code = Hct) 27.8 36.0-48.0 [facility] CampusQunlhiwOKALTUPVSA1381-53-97 10:34:00 Test Item Value Reference Range Interpretation Comments MCHC (test code = MCHC) 31.5 32.0-36.0 [facility] CampusSbltlepXWCIJMVNUJ0930-79-79 10:34:00 Test Item Value Reference Range Interpretation Comments MCH (test code = MCH) 21.9 pg 27.0-31.0 [facility] CampusCesfrnlAJINMACDXY5317-60-80 10:34:00 Test Item Value Reference Range Interpretation Comments Platelet (test code = Platelet) 267 133-450 [facility] CampusJyaefvtJURAEDLKQR6808-49-11 10:34:00 Test Item Value Reference Range Interpretation Comments RDW (test code = RDW) 18.2 11.5-14.5 [facility] CampusNaixxwgIQGAFXAKAA6967-82-38 10:34:00 Test Item Value Reference Range Interpretation Comments WBC (test code = WBC) 5.3 3.7-10.4 [facility] CampusUuntukzCNDDPBSVZN3575-80-33 10:34:00 Test Item Value Reference Range Interpretation Comments RBC (test code = RBC) 4.00 4.20-5.40 [facility] CampusDyarpakWHIQATOQOQ4870-82-52 10:34:00 Test Item Value Reference Range Interpretation Comments Hgb (test code = Hgb) 8.8 12.0-16.0 [facility] CampusCznwscuGUVUYBIQIS6362-50-90 10:34:00 Test Item Value Reference Range Interpretation Comments Segs (test code = Segs) 51.8 45.0-75.0 [facility] CampusPjpctalMRCZGWRIPG6269-11-35 10:34:00 Test Item Value Reference Range Interpretation Comments Monocytes (test code = Monocytes) 7.1 2.0-12.0 [facility] CampusSshynvlBPHGBDBMSL1214-04-44 10:34:00 Test Item Value Reference Range Interpretation Comments Lymphocytes (test code = Lymphocytes) 37.6 20.0-40.0 [facility] CampusTfjimnzJUNADIJSAV9552-47-37 10:34:00 Test Item Value Reference Range Interpretation Comments Eosinophils (test code = 3.0 See_Comment [A utomated message] The Eosinophils) system which ge nerated this result tra nsmitted reference range : <=4.0. The reference r alee was not used to int erpret this result as normal/abnormal . [facility] CampusXpnfzasIOCPVULSDM1144-90-79 10:34:00 Test Item Value Reference Range Interpretation Comments Plt Morph (test code = Normal (08/23/18 5:34 AM) Plt Morph) [facility] CampusMgofdmqMCRUCEHSNH4647-13-93 10:34:00 Test Item Value Reference Range Interpretation Comments Neutrophils # (test code = Neutrophils 2.8 1.5-8.1 #) [facility] CampusFiyppnfYUATXLHENH3096-40-01 10:34:00 Test Item Value Reference Range Interpretation Comments Monocytes # (test code 0.4 See_Comment [Aut omated message] The = Monocytes #) system which generated this result tra nsmitted reference range : <=0.8. The reference r alee was not used to int erpret this result as normal/abnormal . [facility] CampusXzdmdzeAULONNNJZC0158-09-84 10:34:00 Test Item Value Reference Range Interpretation Comments Lymphocytes # (test code = Lymphocytes 2.0 1.0-5.5 #) [facility] CampusFgjgtnfBHDTVJEKIM8289-60-19 10:34:00 Test Item Value Reference Range Interpretation Comments Eosinophils # (test code 0.2 See_Comment [A utomated message] The = Eosinophils #) system whic h generated this result tra nsmitted reference range : <=0.5. The reference r alee was not used to int erpret this result as normal/abnormal . [facility] CampusZgbsjwoHKUYAOFHHN4104-24-47 10:34:00 Test Item Value Reference Range Interpretation Comments Basophils (test code = 0.5 See_Comment [Aut omated message] The Basophils) system which ge nerated this result tra nsmitted reference range : <=1.0. The reference r alee was not used to int erpret this result as normal/abnormal . [facility] CampusColqxpiNTYVKMKBBK6581-93-57 10:34:00 Test Item Value Reference Range Interpretation Comments Hypochrom (test code = 1+ (08/23/18 5:34 AM) Hypochrom) [facility] CampusLnhdtqdQYHSUXUTXU4436-29-31 10:34:00 Test Item Value Reference Range Interpretation Comments Microcyte (test code = 2+ *ABN*(08/23/18 5:34 Microcyte) AM) [facility]ressRylqqdkQTUVRD0252-06-17 10:34:00 Test Item Value Reference Range Interpretation Comments VLDL (test code = VLDL) 28 1 [facility] CypressDkcfztiKLXRRI9591-12-36 10:34:00 Test Item Value Reference Range Interpretation Comments LDL (Calculated) (test code = LDL 130 (Calculated)) [facility] CypressBgpqwznMUGREN6266-70-71 10:34:00 Test Item Value Reference Range Interpretation Comments Chol (test code = Chol) 196 [facility] CenterPtfktpaBBNTEP6952-43-61 10:34:00 Test Item Value Reference Range Interpretation Comments Trig (test code = Trig) 141 [facility] CenterZmsqkkeHWDGQY2453-83-81 10:34:00 Test Item Value Reference Range Interpretation Comments HDL (test code = HDL) 38 [facility] CenterWgtesuiUNVYCY6680-61-63 10:34:00 Test Item Value Reference Range Interpretation Comments CHD Risk (test code = CHD Risk) 5.16 1 3.90-5.80 [facility] AIKZHTCNW5950-42-56 10:34:00 Test Item Value Reference Range Interpretation Comments Hgb A1C (test code = Hgb A1C) 6.2 [facility] CenterSwarm64 YOAJE8405-92-99 10:34:00 Test Item Value Reference Range Interpretation Comments eGFR (test code = eGFR) 104 [facility]2019-06-04 10:34:00 Test Item Value Reference Range Interpretation Comments Calcium Lvl (test code = Calcium Lvl) 8.7 8.5-10.5 [facility] CenterSwarm64 ADVST0197-23-01 10:34:00 Test Item Value Reference Range Interpretation Comments Sodium Lvl (test code = Sodium Lvl) 137 135-145 [facility] CenterCoinbase TZMSQ7410-86-57 10:34:00 Test Item Value Reference Range Interpretation Comments Chloride Lvl (test code = Chloride Lvl) 104 95-109 [facility] CenterSwarm[facility] YFNKV4338-29-28 10:34:00 Test Item Value Reference Range Interpretation Comments Potassium Lvl (test code = Potassium 4.1 3.5-5.1 Lvl) [facility] CenterSw[facility] LPDUI2488-92-43 10:34:00 Test Item Value Reference Range Interpretation Comments AGAP (test code = AGAP) 11.1 10.0-20.0 [facility] CenterCoin[facility] [id number] 10:34:00 Test Item Value Reference Range Interpretation Comments CO2 (test code = CO2) 26 24-32 [facility] CenterSw[facility] [id number] 10:34:00 Test Item Value Reference Range Interpretation Comments BUN (test code = BUN) 15 7-22 [facility] CenterSw[facility] [id number] 10:34:00 Test Item Value Reference Range Interpretation Comments Creatinine Lvl (test code = Creatinine 0.73 0.50-1.40 Lvl) [facility]2019-06-04 10:34:00 Test Item Value Reference Range Interpretation Comments Glucose Lvl (test code = Glucose Lvl) 86 70-99 [facility]ByhxjsuXCVALGBGJLMPX2308-06-73 10:34:00 Test Item Value Reference Range Interpretation Comments Prolactin Lvl (test code = Prolactin 31.4 Lvl) [facility] CampusTcdolfjRFNSQRCITJ7675-27-49 10:34:00 Test Item Value Reference Range Interpretation Comments MPV (test code = MPV) 7.3 7.4-10.4 [facility] CampusOihywoyJSMKFFUHGZ2774-95-97 10:34:00 Test Item Value Reference Range Interpretation Comments MCV (test code = MCV) 69.5 80.0-98.0 [facility] CampusJnfnkqeRIYKWXNCNU2914-85-63 10:34:00 Test Item Value Reference Range Interpretation Comments Hct (test code = Hct) 27.8 36.0-48.0 [facility] CampusWwuiptnAVFSRGDQNW1591-44-67 10:34:00 Test Item Value Reference Range Interpretation Comments MCHC (test code = MCHC) 31.5 32.0-36.0 [facility] CampusGmeeqhyMMGYWYWTSB4585-32-04 10:34:00 Test Item Value Reference Range Interpretation Comments MCH (test code = MCH) 21.9 pg 27.0-31.0 [facility] CampusEaroshwTFSCDOILUB4871-20-65 10:34:00 Test Item Value Reference Range Interpretation Comments Platelet (test code = Platelet) 267 133-450 [facility] CampusBwuuilqMQGKQTNMGS9114-06-49 10:34:00 Test Item Value Reference Range Interpretation Comments RDW (test code = RDW) 18.2 11.5-14.5 [facility] CampusGbkbbqaTXXYYOCOCX6463-93-99 10:34:00 Test Item Value Reference Range Interpretation Comments WBC (test code = WBC) 5.3 3.7-10.4 [facility] CampusDhdytypXZZZGDARQO2846-55-03 10:34:00 Test Item Value Reference Range Interpretation Comments RBC (test code = RBC) 4.00 4.20-5.40 [facility] CampusTcjvxfhEJQDOBQZKJ6996-92-52 10:34:00 Test Item Value Reference Range Interpretation Comments Hgb (test code = Hgb) 8.8 12.0-16.0 [facility] CampusIbemrxwWNWPZMFNFF3380-10-05 10:34:00 Test Item Value Reference Range Interpretation Comments Segs (test code = Segs) 51.8 45.0-75.0 [facility] CampusUijyjylADCCXHLULA1708-65-49 10:34:00 Test Item Value Reference Range Interpretation Comments Monocytes (test code = Monocytes) 7.1 2.0-12.0 [facility] CampusMhqntsrYPMKUBKWVB8942-48-68 10:34:00 Test Item Value Reference Range Interpretation Comments Lymphocytes (test code = Lymphocytes) 37.6 20.0-40.0 [facility] CampusKpmuyziQBTMEYOYYB0389-41-08 10:34:00 Test Item Value Reference Range Interpretation Comments Eosinophils (test code = 3.0 See_Comment [A utomated message] The Eosinophils) system which ge nerated this result tra nsmitted reference range : <=4.0. The reference r alee was not used to int erpret this result as normal/abnormal . [facility] CampusIakqxvkJFJWLPQZIC8928-69-81 10:34:00 Test Item Value Reference Range Interpretation Comments Plt Morph (test code = Normal (08/23/18 5:34 AM) Plt Morph) [facility] CampusFapudueGBDEUHJRAF8845-79-36 10:34:00 Test Item Value Reference Range Interpretation Comments Neutrophils # (test code = Neutrophils 2.8 1.5-8.1 #) [facility] CampusMpdykheSVXRGLPFLX5533-44-53 10:34:00 Test Item Value Reference Range Interpretation Comments Monocytes # (test code 0.4 See_Comment [Aut omated message] The = Monocytes #) system which generated this result tra nsmitted reference range : <=0.8. The reference r alee was not used to int erpret this result as normal/abnormal . [facility] CampusAglpbmuBSMLVHSVOO8546-88-49 10:34:00 Test Item Value Reference Range Interpretation Comments Lymphocytes # (test code = Lymphocytes 2.0 1.0-5.5 #) [facility] CampusBsowcadLCMXDWDVQD9338-70-70 10:34:00 Test Item Value Reference Range Interpretation Comments Eosinophils # (test code 0.2 See_Comment [A utomated message] The = Eosinophils #) system whic h generated this result tra nsmitted reference range : <=0.5. The reference r alee was not used to int erpret this result as normal/abnormal . [facility] CampusMvxuopaBHBWCIWTUY9669-93-75 10:34:00 Test Item Value Reference Range Interpretation Comments Basophils (test code = 0.5 See_Comment [Aut omated message] The Basophils) system which ge nerated this result tra nsmitted reference range : <=1.0. The reference r alee was not used to int erpret this result as normal/abnormal . [facility]FpfyokfCIPPQMJAVW6642-35-05 10:34:00 Test Item Value Reference Range Interpretation Comments Hypochrom (test code = 1+ (08/23/18 5:34 AM) Hypochrom) [facility] HospitalCtshijmALQHZCEWYO5697-07-43 10:34:00 Test Item Value Reference Range Interpretation Comments Microcyte (test code = 2+ *ABN*(08/23/18 5:34 Microcyte) AM) [facility] CenterMzcitovDVHJHR4418-92-93 10:34:00 Test Item Value Reference Range Interpretation Comments VLDL (test code = VLDL) 28 1 [facility] CenterIjpfwkaIBPSGN9490-90-97 10:34:00 Test Item Value Reference Range Interpretation Comments LDL (Calculated) (test code = LDL 130 (Calculated)) [facility] CenterElksqesLQRWGB8339-51-94 10:34:00 Test Item Value Reference Range Interpretation Comments Chol (test code = Chol) 196 [facility] CenterTtbowkbFWYEGI2988-67-66 10:34:00 Test Item Value Reference Range Interpretation Comments Trig (test code = Trig) 141 [facility] CenterIkvmfaeAOOBVB0808-55-94 10:34:00 Test Item Value Reference Range Interpretation Comments HDL (test code = HDL) 38 [facility] CenterPpkzskjIPPEXZ9135-20-02 10:34:00 Test Item Value Reference Range Interpretation Comments CHD Risk (test code = CHD Risk) 5.16 1 3.90-5.80 [facility] XLUCAKSWK1694-31-69 10:34:00 Test Item Value Reference Range Interpretation Comments Hgb A1C (test code = Hgb A1C) 6.2 [facility] CenterCHEM JIUIX3130-73-88 10:34:00 Test Item Value Reference Range Interpretation Comments eGFR (test code = eGFR) 104 [facility] MDQLB2371-07-73 10:34:00 Test Item Value Reference Range Interpretation Comments Calcium Lvl (test code = Calcium Lvl) 8.7 8.5-10.5 [facility] YXYGP3361-94-34 10:34:00 Test Item Value Reference Range Interpretation Comments Sodium Lvl (test code = Sodium Lvl) 137 135-145 [facility]2019-06-04 10:34:00 Test Item Value Reference Range Interpretation Comments Chloride Lvl (test code = Chloride Lvl) 104 95-109 [facility]2019-06-04 10:34:00 Test Item Value Reference Range Interpretation Comments Potassium Lvl (test code = Potassium 4.1 3.5-5.1 Lvl) [facility]2019-06-04 10:34:00 Test Item Value Reference Range Interpretation Comments AGAP (test code = AGAP) 11.1 10.0-20.0 [facility]2019-06-04 10:34:00 Test Item Value Reference Range Interpretation Comments CO2 (test code = CO2) 26 24-32 [facility]2019-06-04 10:34:00 Test Item Value Reference Range Interpretation Comments BUN (test code = BUN) 15 7-22 [facility]2019-06-04 10:34:00 Test Item Value Reference Range Interpretation Comments Creatinine Lvl (test code = Creatinine 0.73 0.50-1.40 Lvl) [facility]2019-06-04 10:34:00 Test Item Value Reference Range Interpretation Comments Glucose Lvl (test code = Glucose Lvl) 86 70-99 [facility]IkjlwiwYJXGOTQVNZSBJ9869-17-47 10:34:00 Test Item Value Reference Range Interpretation Comments Prolactin Lvl (test code = Prolactin 31.4 Lvl) [facility]VqaiulcSCPBFAVTRM2451-74-50 10:34:00 Test Item Value Reference Range Interpretation Comments MPV (test code = MPV) 7.3 7.4-10.4 [facility] CampusOrjzvuqQEXSXATJHM0015-71-94 10:34:00 Test Item Value Reference Range Interpretation Comments MCV (test code = MCV) 69.5 80.0-98.0 [facility] CampusVygneooRGTJYVVMEB7860-07-35 10:34:00 Test Item Value Reference Range Interpretation Comments Hct (test code = Hct) 27.8 36.0-48.0 [facility] CampusNbhgtgwFVYONBKBDY3222-63-50 10:34:00 Test Item Value Reference Range Interpretation Comments MCHC (test code = MCHC) 31.5 32.0-36.0 [facility] CampusRitqjudZXOCPMHRZA6030-74-83 10:34:00 Test Item Value Reference Range Interpretation Comments MCH (test code = MCH) 21.9 pg 27.0-31.0 [facility] CampusKdfhwcoAWYJMMZBIF6995-16-52 10:34:00 Test Item Value Reference Range Interpretation Comments Platelet (test code = Platelet) 267 133-450 [facility] CampusXqhojyfECPBFRQKTU7466-36-26 10:34:00 Test Item Value Reference Range Interpretation Comments RDW (test code = RDW) 18.2 11.5-14.5 [facility] CampusYlmhltfUHNGGVRCWK3541-21-91 10:34:00 Test Item Value Reference Range Interpretation Comments WBC (test code = WBC) 5.3 3.7-10.4 [facility] CampusXxrqlxnRSDQDSHPCR4981-08-05 10:34:00 Test Item Value Reference Range Interpretation Comments RBC (test code = RBC) 4.00 4.20-5.40 [facility] CampusFxxvltwGHYTNMJOWL4652-25-22 10:34:00 Test Item Value Reference Range Interpretation Comments Hgb (test code = Hgb) 8.8 12.0-16.0 [facility] CampusGhkfyvzMYMQOYCBRM3106-37-72 10:34:00 Test Item Value Reference Range Interpretation Comments Segs (test code = Segs) 51.8 45.0-75.0 [facility] CampusFlznoomRQLBQDCDCG5108-44-30 10:34:00 Test Item Value Reference Range Interpretation Comments Monocytes (test code = Monocytes) 7.1 2.0-12.0 [facility] CampusKrklswbWPNJYAEHRI6841-09-73 10:34:00 Test Item Value Reference Range Interpretation Comments Lymphocytes (test code = Lymphocytes) 37.6 20.0-40.0 [facility] CampusHimzvrxDRVAXQBYRK1619-63-62 10:34:00 Test Item Value Reference Range Interpretation Comments Eosinophils (test code = 3.0 See_Comment [A utomated message] The Eosinophils) system which ge nerated this result tra nsmitted reference range : <=4.0. The reference r alee was not used to int erpret this result as normal/abnormal . [facility] CampusInojnpmAZQUETKUYX2973-51-97 10:34:00 Test Item Value Reference Range Interpretation Comments Plt Morph (test code = Normal (08/23/18 5:34 AM) Plt Morph) [facility] CampusTrtfdyzNIGJSPSUMF6383-27-89 10:34:00 Test Item Value Reference Range Interpretation Comments Neutrophils # (test code = Neutrophils 2.8 1.5-8.1 #) [facility] CampusSzsqxvsWWMHKWFBCZ4701-50-10 10:34:00 Test Item Value Reference Range Interpretation Comments Monocytes # (test code 0.4 See_Comment [Aut omated message] The = Monocytes #) system which generated this result tra nsmitted reference range : <=0.8. The reference r alee was not used to int erpret this result as normal/abnormal . [facility] CampusJwybzocZZMTRPMNCY6617-06-25 10:34:00 Test Item Value Reference Range Interpretation Comments Lymphocytes # (test code = Lymphocytes 2.0 1.0-5.5 #) [facility] CampusEjgafuhIQHFQVSWSP1729-06-77 10:34:00 Test Item Value Reference Range Interpretation Comments Eosinophils # (test code 0.2 See_Comment [A utomated message] The = Eosinophils #) system whic h generated this result tra nsmitted reference range : <=0.5. The reference r alee was not used to int erpret this result as normal/abnormal . [facility] CampusIcdzrrtRJHUKSCHHB3092-40-34 10:34:00 Test Item Value Reference Range Interpretation Comments Basophils (test code = 0.5 See_Comment [Aut omated message] The Basophils) system which ge nerated this result tra nsmitted reference range : <=1.0. The reference r alee was not used to int erpret this result as normal/abnormal . [facility] CampusDrgohfsJBIPTLVAAL8462-58-06 10:34:00 Test Item Value Reference Range Interpretation Comments Hypochrom (test code = 1+ (08/23/18 5:34 AM) Hypochrom) [facility] CampusRigwqiqHKDUDAWVBS3084-93-94 10:34:00 Test Item Value Reference Range Interpretation Comments Microcyte (test code = 2+ *ABN*(08/23/18 5:34 Microcyte) AM) [facility]QbteooyXSVYHY4934-49-96 10:34:00 Test Item Value Reference Range Interpretation Comments VLDL (test code = VLDL) 28 1 [facility] CypressXvthhogMAIDOQ4135-94-19 10:34:00 Test Item Value Reference Range Interpretation Comments LDL (Calculated) (test code = LDL 130 (Calculated)) [facility] CypressRzzisfbIYDHBU6505-47-31 10:34:00 Test Item Value Reference Range Interpretation Comments Chol (test code = Chol) 196 [facility]VqwzoggJCIPGU0987-52-68 10:34:00 Test Item Value Reference Range Interpretation Comments Trig (test code = Trig) 141 [facility] CenterSczcrsaGZXWMH1694-53-60 10:34:00 Test Item Value Reference Range Interpretation Comments HDL (test code = HDL) 38 [facility] CenterYpihiajSJTNLI3945-83-57 10:34:00 Test Item Value Reference Range Interpretation Comments CHD Risk (test code = CHD Risk) 5.16 1 3.90-5.80 [facility] IVHFQBKVI4075-52-64 10:34:00 Test Item Value Reference Range Interpretation Comments Hgb A1C (test code = Hgb A1C) 6.2 [facility] [id number] 10:34:00 Test Item Value Reference Range Interpretation Comments eGFR (test code = eGFR) 104 [facility] CenterSwarm64 PFNFE6255-95-52 10:34:00 Test Item Value Reference Range Interpretation Comments Calcium Lvl (test code = Calcium Lvl) 8.7 8.5-10.5 [facility]Sw[facility] ORIEF2351-32-97 10:34:00 Test Item Value Reference Range Interpretation Comments Sodium Lvl (test code = Sodium Lvl) 137 135-145 [facility] [id number] 10:34:00 Test Item Value Reference Range Interpretation Comments Chloride Lvl (test code = Chloride Lvl) 104 95-109 [facility] [id number] 10:34:00 Test Item Value Reference Range Interpretation Comments Potassium Lvl (test code = Potassium 4.1 3.5-5.1 Lvl) [facility] [id number] 10:34:00 Test Item Value Reference Range Interpretation Comments AGAP (test code = AGAP) 11.1 10.0-20.0 [facility] [id number] 10:34:00 Test Item Value Reference Range Interpretation Comments CO2 (test code = CO2) 26 24-32 [facility] [id number] 10:34:00 Test Item Value Reference Range Interpretation Comments BUN (test code = BUN) 15 7-22 [facility] UEDWJ0315-06-68 10:34:00 Test Item Value Reference Range Interpretation Comments Creatinine Lvl (test code = Creatinine 0.73 0.50-1.40 Lvl) [facility]2019-06-04 10:34:00 Test Item Value Reference Range Interpretation Comments Glucose Lvl (test code = Glucose Lvl) 86 70-99 [facility]hgjrilSXSGEEZOUSCIW4796-04-08 10:34:00 Test Item Value Reference Range Interpretation Comments Prolactin Lvl (test code = Prolactin 31.4 Lvl) [facility] CampusReokieaPWYINPBCIM9217-11-86 10:34:00 Test Item Value Reference Range Interpretation Comments MPV (test code = MPV) 7.3 7.4-10.4 [facility] CampusTbfeiptTGQTQUVAUQ2619-24-86 10:34:00 Test Item Value Reference Range Interpretation Comments MCV (test code = MCV) 69.5 80.0-98.0 [facility] CampusGxlfpvtNSGFJJENOD4679-63-12 10:34:00 Test Item Value Reference Range Interpretation Comments Hct (test code = Hct) 27.8 36.0-48.0 [facility] CampusEfswcitCTGXIOKGKG8331-52-58 10:34:00 Test Item Value Reference Range Interpretation Comments MCHC (test code = MCHC) 31.5 32.0-36.0 [facility] CampusWyjutluYJZHPEZJLD2460-55-44 10:34:00 Test Item Value Reference Range Interpretation Comments MCH (test code = MCH) 21.9 pg 27.0-31.0 [facility] CampusTamngagXBDFDGFQHD7749-42-61 10:34:00 Test Item Value Reference Range Interpretation Comments Platelet (test code = Platelet) 267 133-450 [facility] CampusBdjkyjaLDBRYDBSOY2391-23-75 10:34:00 Test Item Value Reference Range Interpretation Comments RDW (test code = RDW) 18.2 11.5-14.5 [facility] CampusVhsiozsWMPNLXXBKY3095-36-34 10:34:00 Test Item Value Reference Range Interpretation Comments WBC (test code = WBC) 5.3 3.7-10.4 [facility] CampusMxckedbOHOIXIKGGN3263-66-97 10:34:00 Test Item Value Reference Range Interpretation Comments RBC (test code = RBC) 4.00 4.20-5.40 [facility] CampusSaayiqqGWPHYHPGEA6214-75-40 10:34:00 Test Item Value Reference Range Interpretation Comments Hgb (test code = Hgb) 8.8 12.0-16.0 [facility] CampusVlhimwdRYEWIWKMHK6013-49-33 10:34:00 Test Item Value Reference Range Interpretation Comments Segs (test code = Segs) 51.8 45.0-75.0 [facility] CampusXpksmukCTQXHWJZIQ0820-55-24 10:34:00 Test Item Value Reference Range Interpretation Comments Monocytes (test code = Monocytes) 7.1 2.0-12.0 [facility] CampusUededevNEJLYPXEWB0323-16-82 10:34:00 Test Item Value Reference Range Interpretation Comments Lymphocytes (test code = Lymphocytes) 37.6 20.0-40.0 [facility] CampusIoorjgxMGVCYYWKIN8547-98-69 10:34:00 Test Item Value Reference Range Interpretation Comments Eosinophils (test code = 3.0 See_Comment [A utomated message] The Eosinophils) system which ge nerated this result tra nsmitted reference range : <=4.0. The reference r alee was not used to int erpret this result as normal/abnormal . [facility] CampusZpcavreSEQLPZTLHV6529-99-55 10:34:00 Test Item Value Reference Range Interpretation Comments Plt Morph (test code = Normal (08/23/18 5:34 AM) Plt Morph) [facility] CampusFowqygaJZTQVJRYTM3283-77-04 10:34:00 Test Item Value Reference Range Interpretation Comments Neutrophils # (test code = Neutrophils 2.8 1.5-8.1 #) [facility] CampusXwzwskdYOPNTSBJXR1800-45-36 10:34:00 Test Item Value Reference Range Interpretation Comments Monocytes # (test code 0.4 See_Comment [Aut omated message] The = Monocytes #) system which generated this result tra nsmitted reference range : <=0.8. The reference r alee was not used to int erpret this result as normal/abnormal . [facility] CampusArpiqrySQZYWZZIEA4401-16-36 10:34:00 Test Item Value Reference Range Interpretation Comments Lymphocytes # (test code = Lymphocytes 2.0 1.0-5.5 #) [facility] CampusMxxzuceBFEOROCSWM8336-23-85 10:34:00 Test Item Value Reference Range Interpretation Comments Eosinophils # (test code 0.2 See_Comment [A utomated message] The = Eosinophils #) system whic h generated this result tra nsmitted reference range : <=0.5. The reference r alee was not used to int erpret this result as normal/abnormal . [facility] CampusXgbeohdLNDRFQQPLB6679-57-46 10:34:00 Test Item Value Reference Range Interpretation Comments Basophils (test code = 0.5 See_Comment [Aut omated message] The Basophils) system which ge nerated this result tra nsmitted reference range : <=1.0. The reference r alee was not used to int erpret this result as normal/abnormal . [facility] CenterMjvrmkoQRGFFDICRS7787-96-77 10:34:00 Test Item Value Reference Range Interpretation Comments Hypochrom (test code = 1+ (08/23/18 5:34 AM) Hypochrom) [facility] CenterAinvtkhKFMJUEAEMW1645-37-87 10:34:00 Test Item Value Reference Range Interpretation Comments Microcyte (test code = 2+ *ABN*(08/23/18 5:34 Microcyte) AM) [facility] CenterVirrthaLRAOGS6670-42-70 10:34:00 Test Item Value Reference Range Interpretation Comments VLDL (test code = VLDL) [address] [facility] CenterQfqgemoTGLASO4830-47-84 10:34:00 Test Item Value Reference Range Interpretation Comments LDL (Calculated) (test code = LDL 130 (Calculated)) [facility] CenterRczcadtSMCQVN2374-45-33 10:34:00 Test Item Value Reference Range Interpretation Comments Chol (test code = Chol) 196 [facility] CenterZwshrjcHEQHYU0224-80-07 10:34:00 Test Item Value Reference Range Interpretation Comments Trig (test code = Trig) 141 [facility] CenterJzzyxwxUZTMHB4200-86-67 10:34:00 Test Item Value Reference Range Interpretation Comments HDL (test code = HDL) 38 [facility] CenterXbejawvGRRQFK9257-66-34 10:34:00 Test Item Value Reference Range Interpretation Comments CHD Risk (test code = CHD Risk) 5.16 1 3.90-5.80 [facility] [id number] 10:34:00 Test Item Value Reference Range Interpretation Comments Hgb A1C (test code = Hgb A1C) 6.2 [facility] CenterannURINE AND [id number] 10:00:00 Test Item Value Reference Range Interpretation Comments UA Bacteria (test code = UA Few /HPF Bacteria) [facility]ann[facility] AND [id number] 10:00:00 Test Item Value Reference Range Interpretation Comments UA Sq Epi (test code = UA Sq Epi) Many /LPF [facility]annSPE[facility] AND [id number] 10:00:00 Test Item Value Reference Range Interpretation Comments UA WBC (test code = 2 See_Comment [Automa kenroy message] The UA WBC) system which ge nerated this result transmit kenroy reference range : <=5. The reference range was not used to interpr et this result as elton l/abnormal. [facility] AND [id number] 10:00:00 Test Item Value Reference Range Interpretation Comments UA RBC (test code = 1 See_Comment [Automa kenroy message] The UA RBC) system which ge nerated this result transmit kenroy reference range : <=2. The reference range was not used to interpr et this result as elton l/abnormal. [facility] AND [id number] 10:00:00 Test Item Value Reference Range Interpretation Comments UA Hyal Cast (test 3 See_Comment [Automat ed message] The code = UA Hyal Cast) system which generated this result transmit kenroy reference range : <=2. The reference range was not used to interpr et this result as elton l/abnormal. [facility] AND [id number] 10:00:00 Test Item Value Reference Range Interpretation Comments UA Mucus (test code = UA Mucus) Few /LPF [facility] AND [id number] 10:00:00 Test Item Value Reference Range Interpretation Comments UA Amorph Liat (test code = Occasional /HPF UA Amorph Liat) [facility] AND [id number] 10:00:00 Test Item Value Reference Range Interpretation Comments UA Color (test code = Yellow *NA*(08/23/18 5:00 UA Color) AM) [facility] AND [id number] 10:00:00 Test Item Value Reference Range Interpretation Comments UA Turbidity (test code Slight *ABN*(08/23/18 = UA Turbidity) 5:00 AM) [facility] AND [id number] 10:00:00 Test Item Value Reference Range Interpretation Comments UA Nitrite (test code Negative (08/23/18 5:00 = UA Nitrite) AM) [facility] AND [id number] 10:00:00 Test Item Value Reference Range Interpretation Comments UA Leuk Est (test code Trace *ABN*(08/23/18 5:00 = UA Leuk Est) AM) [facility] AND [id number] 10:00:00 Test Item Value Reference Range Interpretation Comments UA Spec Grav (test code = UA Spec 1.016 1 Grav) [facility] AND [id number] 10:00:00 Test Item Value Reference Range Interpretation Comments UA pH (test code = UA pH) 5.0 1 5.0-8.0 [facility] AND [id number] 10:00:00 Test Item Value Reference Range Interpretation Comments UA Protein (test code Negative (08/23/18 5:00 = UA Protein) AM) [facility] AND [id number] 10:00:00 Test Item Value Reference Range Interpretation Comments UA Ketones (test code Negative *NA*(08/23/18 = UA Ketones) 5:00 AM) [facility] AND [id number] 10:00:00 Test Item Value Reference Range Interpretation Comments UA Bili (test code = Negative *NA*(08/23/18 UA Bili) 5:00 AM) [facility] AND [id number] 10:00:00 Test Item Value Reference Range Interpretation Comments UA Blood (test code = Negative (08/23/18 5:00 UA Blood) AM) [facility] AND [id number] 10:00:00 Test Item Value Reference Range Interpretation Comments UA Urobilinogen (test code = UA <=1.0 mg/dL 0.1-1.0 Urobilinogen) [facility] AND [id number] 10:00:00 Test Item Value Reference Range Interpretation Comments UA Glucose (test code Negative *NA*(08/23/18 = UA Glucose) 5:00 AM) [facility] AND [id number] 10:00:00 Test Item Value Reference Range Interpretation Comments UA Bacteria (test code = UA Few /HPF Bacteria) [facility] AND [id number] 10:00:00 Test Item Value Reference Range Interpretation Comments UA Sq Epi (test code = UA Sq Epi) Many /LPF [facility] AND [id number] 10:00:00 Test Item Value Reference Range Interpretation Comments UA WBC (test code = 2 See_Comment [Automa kenroy message] The UA WBC) system which ge nerated this result transmit kenroy reference range : <=5. The reference range was not used to interpr et this result as elton l/abnormal. [facility] AND [id number] 10:00:00 Test Item Value Reference Range Interpretation Comments UA RBC (test code = 1 See_Comment [Automa kenroy message] The UA RBC) system which ge nerated this result transmit kenroy reference range : <=2. The reference range was not used to interpr et this result as elton l/abnormal. [facility] AND [id number] 10:00:00 Test Item Value Reference Range Interpretation Comments UA Hyal Cast (test 3 See_Comment [Automat ed message] The code = UA Hyal Cast) system which generated this result transmit kenroy reference range : <=2. The reference range was not used to interpr et this result as elton l/abnormal. [facility] AND [id number] 10:00:00 Test Item Value Reference Range Interpretation Comments UA Mucus (test code = UA Mucus) Few /LPF [facility] AND [id number] 10:00:00 Test Item Value Reference Range Interpretation Comments UA Amorph Liat (test code = Occasional /HPF UA Amorph Liat) [facility] AND [id number] 10:00:00 Test Item Value Reference Range Interpretation Comments UA Color (test code = Yellow *NA*(08/23/18 5:00 UA Color) AM) [facility] AND [id number] 10:00:00 Test Item Value Reference Range Interpretation Comments UA Turbidity (test code Slight *ABN*(08/23/18 = UA Turbidity) 5:00 AM) [facility] AND [id number] 10:00:00 Test Item Value Reference Range Interpretation Comments UA Nitrite (test code Negative (08/23/18 5:00 = UA Nitrite) AM) [facility] AND [id number] 10:00:00 Test Item Value Reference Range Interpretation Comments UA Leuk Est (test code Trace *ABN*(08/23/18 5:00 = UA Leuk Est) AM) [facility] AND [id number] 10:00:00 Test Item Value Reference Range Interpretation Comments UA Spec Grav (test code = UA Spec 1.016 1 Grav) [facility] AND [id number] 10:00:00 Test Item Value Reference Range Interpretation Comments UA pH (test code = UA pH) 5.0 1 5.0-8.0 [facility] AND [id number] 10:00:00 Test Item Value Reference Range Interpretation Comments UA Protein (test code Negative (08/23/18 5:00 = UA Protein) AM) [facility] AND [id number] 10:00:00 Test Item Value Reference Range Interpretation Comments UA Ketones (test code Negative *NA*(08/23/18 = UA Ketones) 5:00 AM) [facility] AND [id number] 10:00:00 Test Item Value Reference Range Interpretation Comments UA Bili (test code = Negative *NA*(08/23/18 UA Bili) 5:00 AM) [facility] AND [id number] 10:00:00 Test Item Value Reference Range Interpretation Comments UA Blood (test code = Negative (08/23/18 5:00 UA Blood) AM) [facility] AND [id number] 10:00:00 Test Item Value Reference Range Interpretation Comments UA Urobilinogen (test code = UA <=1.0 mg/dL 0.1-1.0 Urobilinogen) [facility] AND [id number] 10:00:00 Test Item Value Reference Range Interpretation Comments UA Glucose (test code Negative *NA*(08/23/18 = UA Glucose) 5:00 AM) [facility] AND [id number] 10:00:00 Test Item Value Reference Range Interpretation Comments UA Bacteria (test code = UA Few /HPF Bacteria) [facility] AND [id number] 10:00:00 Test Item Value Reference Range Interpretation Comments UA Sq Epi (test code = UA Sq Epi) Many /LPF [facility] AND [id number] 10:00:00 Test Item Value Reference Range Interpretation Comments UA WBC (test code = 2 See_Comment [Automa kenroy message] The UA WBC) system which ge nerated this result transmit kenroy reference range : <=5. The reference range was not used to interpr et this result as elton l/abnormal. [facility] AND [id number] 10:00:00 Test Item Value Reference Range Interpretation Comments UA RBC (test code = 1 See_Comment [Automa kenroy message] The UA RBC) system which ge nerated this result transmit kenroy reference range : <=2. The reference range was not used to interpr et this result as elton l/abnormal. [facility] AND [id number] 10:00:00 Test Item Value Reference Range Interpretation Comments UA Hyal Cast (test 3 See_Comment [Automat ed message] The code = UA Hyal Cast) system which generated this result transmit kenroy reference range : <=2. The reference range was not used to interpr et this result as elton l/abnormal. [facility] AND [id number] 10:00:00 Test Item Value Reference Range Interpretation Comments UA Mucus (test code = UA Mucus) Few /LPF [facility] AND [id number] 10:00:00 Test Item Value Reference Range Interpretation Comments UA Amorph Liat (test code = Occasional /HPF UA Amorph Liat) [facility] AND [id number] 10:00:00 Test Item Value Reference Range Interpretation Comments UA Color (test code = Yellow *NA*(08/23/18 5:00 UA Color) AM) [facility] AND [id number] 10:00:00 Test Item Value Reference Range Interpretation Comments UA Turbidity (test code Slight *ABN*(08/23/18 = UA Turbidity) 5:00 AM) [facility] AND [id number] 10:00:00 Test Item Value Reference Range Interpretation Comments UA Nitrite (test code Negative (08/23/18 5:00 = UA Nitrite) AM) [facility] AND [id number] 10:00:00 Test Item Value Reference Range Interpretation Comments UA Leuk Est (test code Trace *ABN*(08/23/18 5:00 = UA Leuk Est) AM) [facility] AND [id number] 10:00:00 Test Item Value Reference Range Interpretation Comments UA Spec Grav (test code = UA Spec 1.016 1 Grav) [facility] AND [id number] 10:00:00 Test Item Value Reference Range Interpretation Comments UA pH (test code = UA pH) 5.0 1 5.0-8.0 [facility] AND [id number] 10:00:00 Test Item Value Reference Range Interpretation Comments UA Protein (test code Negative (08/23/18 5:00 = UA Protein) AM) [facility] AND [id number] 10:00:00 Test Item Value Reference Range Interpretation Comments UA Ketones (test code Negative *NA*(08/23/18 = UA Ketones) 5:00 AM) [facility] AND [id number] 10:00:00 Test Item Value Reference Range Interpretation Comments UA Bili (test code = Negative *NA*(08/23/18 UA Bili) 5:00 AM) [facility] AND [id number] 10:00:00 Test Item Value Reference Range Interpretation Comments UA Blood (test code = Negative (08/23/18 5:00 UA Blood) AM) [facility] AND [id number] 10:00:00 Test Item Value Reference Range Interpretation Comments UA Urobilinogen (test code = UA <=1.0 mg/dL 0.1-1.0 Urobilinogen) [facility] AND [id number] 10:00:00 Test Item Value Reference Range Interpretation Comments UA Glucose (test code Negative *NA*(08/23/18 = UA Glucose) 5:00 AM) [facility] AND [id number] 10:00:00 Test Item Value Reference Range Interpretation Comments UA Bacteria (test code = UA Few /HPF Bacteria) [facility] AND [id number] 10:00:00 Test Item Value Reference Range Interpretation Comments UA Sq Epi (test code = UA Sq Epi) Many /LPF [facility] AND [id number] 10:00:00 Test Item Value Reference Range Interpretation Comments UA WBC (test code = 2 See_Comment [Automa kenroy message] The UA WBC) system which ge nerated this result transmit kenroy reference range : <=5. The reference range was not used to interpr et this result as elton l/abnormal. [facility] AND [id number] 10:00:00 Test Item Value Reference Range Interpretation Comments UA RBC (test code = 1 See_Comment [Automa kenroy message] The UA RBC) system which ge nerated this result transmit kenroy reference range : <=2. The reference range was not used to interpr et this result as elton l/abnormal. [facility] AND [id number] 10:00:00 Test Item Value Reference Range Interpretation Comments UA Hyal Cast (test 3 See_Comment [Automat ed message] The code = UA Hyal Cast) system which generated this result transmit kenroy reference range : <=2. The reference range was not used to interpr et this result as elton l/abnormal. [facility] AND [id number] 10:00:00 Test Item Value Reference Range Interpretation Comments UA Mucus (test code = UA Mucus) Few /LPF [facility] AND [id number] 10:00:00 Test Item Value Reference Range Interpretation Comments UA Amorph Liat (test code = Occasional /HPF UA Amorph Liat) [facility] AND [id number] 10:00:00 Test Item Value Reference Range Interpretation Comments UA Color (test code = Yellow *NA*(08/23/18 5:00 UA Color) AM) [facility] AND [id number] 10:00:00 Test Item Value Reference Range Interpretation Comments UA Turbidity (test code Slight *ABN*(08/23/18 = UA Turbidity) 5:00 AM) [facility] AND [id number] 10:00:00 Test Item Value Reference Range Interpretation Comments UA Nitrite (test code Negative (08/23/18 5:00 = UA Nitrite) AM) [facility] AND [id number] 10:00:00 Test Item Value Reference Range Interpretation Comments UA Leuk Est (test code Trace *ABN*(08/23/18 5:00 = UA Leuk Est) AM) [facility] AND [id number] 10:00:00 Test Item Value Reference Range Interpretation Comments UA Spec Grav (test code = UA Spec 1.016 1 Grav) [facility] AND [id number] 10:00:00 Test Item Value Reference Range Interpretation Comments UA pH (test code = UA pH) 5.0 1 5.0-8.0 [facility] AND [id number] 10:00:00 Test Item Value Reference Range Interpretation Comments UA Protein (test code Negative (08/23/18 5:00 = UA Protein) AM) [facility] AND [id number] 10:00:00 Test Item Value Reference Range Interpretation Comments UA Ketones (test code Negative *NA*(08/23/18 = UA Ketones) 5:00 AM) [facility] [id number] 10:00:00 Test Item Value Reference Range Interpretation Comments UA Bili (test code = Negative *NA*(08/23/18 UA Bili) 5:00 AM) [facility] [id number] 10:00:00 Test Item Value Reference Range Interpretation Comments UA Blood (test code = Negative (08/23/18 5:00 UA Blood) AM) [facility] [id number] 10:00:00 Test Item Value Reference Range Interpretation Comments UA Urobilinogen (test code = UA <=1.0 mg/dL 0.1-1.0 Urobilinogen) [facility] [id number] 10:00:00 Test Item Value Reference Range Interpretation Comments UA Glucose (test code Negative *NA*(08/23/18 = UA Glucose) 5:00 AM) [facility] [employer] for SmartphonesCARDIAC [id number] 23:05:00 Test Item Value Reference Range Interpretation Comments Total CK (test code = Total CK) 29 12-191 [facility]-D Display for SmartphonesCARFilterBoxx Water & EnvironmentalAC [id number] 23:05:00 Test Item Value Reference Range Interpretation Comments Troponin-I (test code no gt See_Comment [Auto mated message] The = Troponin-I) system which g enerated this result transmit kenroy reference range : <=0.40. The reference r alee was not used to interpr et this result as elton l/abnormal. [facility] for SmartphonesCARDIAC [id number] 23:05:00 Test Item Value Reference Range Interpretation Comments BNP (test code = BNP) 73 [facility] [employer] [id number] 23:05:00 Test Item Value Reference Range Interpretation Comments eGFR (test code = eGFR) 92 [facility] [employer] [id number] 23:05:00 Test Item Value Reference Range Interpretation Comments Bili Total (test code = Bili Total) 0.2 0.2-1.3 [facility] [employer] [id number] 23:05:00 Test Item Value Reference Range Interpretation Comments Albumin Lvl (test code = Albumin Lvl) 3.0 3.5-5.0 [facility] [id number] 23:05:00 Test Item Value Reference Range Interpretation Comments Total Protein (test code = Total 7.4 6.4-8.4 Protein) [facility]2019-06-03 23:05:00 Test Item Value Reference Range Interpretation Comments Calcium Lvl (test code = Calcium Lvl) 9.2 8.5-10.5 [facility]2019-06-03 23:05:00 Test Item Value Reference Range Interpretation Comments Alk Phos (test code = Alk Phos) 93 39-136 [facility]2019-06-03 23:05:00 Test Item Value Reference Range Interpretation Comments AST (test code = AST) 9 See_Comment [Auto mated message] The system which ge nerated this result transmit kenroy reference range : <=37. The reference range was not used to interpr et this result as elton l/abnormal. [facility]2019-06-03 23:05:00 Test Item Value Reference Range Interpretation Comments ALT (test code = ALT) 19 See_Comment [Auto mated message] The system which ge nerated this result transmit kenroy reference range : <=65. The reference range was not used to interpr et this result as elton l/abnormal. [facility]2019-06-03 23:05:00 Test Item Value Reference Range Interpretation Comments CO2 (test code = CO2) 30 24-32 [facility]2019-06-03 23:05:00 Test Item Value Reference Range Interpretation Comments Chloride Lvl (test code = Chloride Lvl) 101 95-109 [facility]2019-06-03 23:05:00 Test Item Value Reference Range Interpretation Comments Sodium Lvl (test code = Sodium Lvl) 136 135-145 [facility]2019-06-03 23:05:00 Test Item Value Reference Range Interpretation Comments Creatinine Lvl (test code = Creatinine 0.81 0.50-1.40 Lvl) [facility]2019-06-03 23:05:00 Test Item Value Reference Range Interpretation Comments BUN (test code = BUN) 12 7-22 [facility]2019-06-03 23:05:00 Test Item Value Reference Range Interpretation Comments Glucose Lvl (test code = Glucose Lvl) 89 70-99 [facility] [id number] 23:05:00 Test Item Value Reference Range Interpretation Comments Potassium Lvl (test code = Potassium 4.1 3.5-5.1 Lvl) [facility]2019-06-03 23:05:00 Test Item Value Reference Range Interpretation Comments AGAP (test code = AGAP) 9.1 10.0-20.0 [facility]2019-06-03 23:05:00 Test Item Value Reference Range Interpretation Comments B/C Ratio (test code = B/C Ratio) 15 1 6-25 [facility]2019-06-03 23:05:00 Test Item Value Reference Range Interpretation Comments A/G Ratio (test code = A/G Ratio) 0.7 1 0.7-1.6 [facility]2019-06-03 23:05:00 Test Item Value Reference Range Interpretation Comments Globulin (test code = Globulin) 4.4 2.7-4.2 [facility]2019-06-03 23:05:00 Test Item Value Reference Range Interpretation Comments Magnesium Lvl (test code = Magnesium 1.9 1.8-2.4 Lvl) [facility] [id number] 23:05:00 Test Item Value Reference Range Interpretation Comments Phosphorus (test code = Phosphorus) 3.3 2.5-4.5 [id number] 23:05:00 Test Item Value Reference Range Interpretation Comments S Preg (test code = S Negative *NA*(08/22/18 Preg) 6:05 PM) [id number] 23:05:00 Test Item Value Reference Range Interpretation Comments RDW (test code = RDW) 17.9 11.5-14.5 [facility] [id number] 23:05:00 Test Item Value Reference Range Interpretation Comments Platelet (test code = Platelet) 320 133-450 [facility] [id number] 23:05:00 Test Item Value Reference Range Interpretation Comments RBC (test code = RBC) 4.24 4.20-5.40 [facility] [id number] 23:05:00 Test Item Value Reference Range Interpretation Comments Hgb (test code = Hgb) 9.2 12.0-16.0 [facility] [id number] 23:05:00 Test Item Value Reference Range Interpretation Comments MCHC (test code = MCHC) 31.6 32.0-36.0 [facility] [id number] 23:05:00 Test Item Value Reference Range Interpretation Comments MPV (test code = MPV) 7.4 7.4-10.4 [facility] [id number] 23:05:00 Test Item Value Reference Range Interpretation Comments Hct (test code = Hct) 29.1 36.0-48.0 [facility] CampusSbesrkkULNUFALDWF7645-19-08 23:05:00 Test Item Value Reference Range Interpretation Comments MCV (test code = MCV) 68.6 80.0-98.0 [facility] C[id number] 23:05:00 Test Item Value Reference Range Interpretation Comments MCH (test code = MCH) 21.7 pg 27.0-31.0 [facility] Camp[id number] 23:05:00 Test Item Value Reference Range Interpretation Comments WBC (test code = WBC) 6.8 3.7-10.4 [facility] [id number] 23:05:00 Test Item Value Reference Range Interpretation Comments INR (test code = INR) 0.91 1 0.85-1.17 [facility] [id number] 23:05:00 Test Item Value Reference Range Interpretation Comments PT (test code = PT) 12.1 s 12.0-14.7 [facility] [id number] 23:05:00 Test Item Value Reference Range Interpretation Comments PTT (test code = PTT) 26.3 s 22.9-35.8 [facility] C[id number] 23:05:00 Test Item Value Reference Range Interpretation Comments Eosinophils # (test code 0.2 See_Comment [A utomated message] The = Eosinophils #) system whic h generated this result tra nsmitted reference range : <=0.5. The reference r alee was not used to int erpret this result as normal/abnormal . [facility] Camp[id number] 23:05:00 Test Item Value Reference Range Interpretation Comments Microcyte (test code = 3+ *NA*(08/22/18 6:05 Microcyte) PM) [facility] C[id number] 23:05:00 Test Item Value Reference Range Interpretation Comments Monocytes (test code = Monocytes) 8.5 2.0-12.0 [facility] [id number] 23:05:00 Test Item Value Reference Range Interpretation Comments Lymphocytes (test code = Lymphocytes) 34.3 20.0-40.0 [facility] [id number] 23:05:00 Test Item Value Reference Range Interpretation Comments Eosinophils (test code = 3.1 See_Comment [A utomated message] The Eosinophils) system which ge nerated this result tra nsmitted reference range : <=4.0. The reference r alee was not used to int erpret this result as normal/abnormal . [facility] [id number] 23:05:00 Test Item Value Reference Range Interpretation Comments Basophils (test code = 0.6 See_Comment [Aut omated message] The Basophils) system which ge nerated this result tra nsmitted reference range : <=1.0. The reference r alee was not used to int erpret this result as normal/abnormal . [facility] [id number] 23:05:00 Test Item Value Reference Range Interpretation Comments Lymphocytes # (test code = Lymphocytes 2.3 1.0-5.5 #) [facility] CampusLmfyltmLXZGEJEYQM1413-80-26 23:05:00 Test Item Value Reference Range Interpretation Comments Monocytes # (test code 0.6 See_Comment [Aut omated message] The = Monocytes #) system which generated this result tra nsmitted reference range : <=0.8. The reference r alee was not used to int erpret this result as normal/abnormal . [facility] CampusFiqgvswCNSIHJNYFT8091-07-26 23:05:00 Test Item Value Reference Range Interpretation Comments Neutrophils # (test code = Neutrophils 3.7 1.5-8.1 #) [facility] CampusMzcgfzsMRHJSQPBZJ7018-62-87 23:05:00 Test Item Value Reference Range Interpretation Comments Segs (test code = Segs) 53.5 45.0-75.0 [facility]2019-06-03 23:05:00 Test Item Value Reference Range Interpretation Comments UA WBC (test code = 2 See_Comment [Automa kenroy message] The UA WBC) system which ge nerated this result transmit kenroy reference range : <=5. The reference range was not used to interpr et this result as elton l/abnormal. [facility] AND [id number] 23:05:00 Test Item Value Reference Range Interpretation Comments UA RBC (test code = 1 See_Comment [Automa kenroy message] The UA RBC) system which ge nerated this result transmit kenroy reference range : <=2. The reference range was not used to interpr et this result as elton l/abnormal. [facility] AND [id number] 23:05:00 Test Item Value Reference Range Interpretation Comments UA Bili (test code = Negative *NA*(08/22/18 UA Bili) 6:05 PM) [facility] AND [id number] 23:05:00 Test Item Value Reference Range Interpretation Comments UA Ketones (test code Negative *NA*(08/22/18 = UA Ketones) 6:05 PM) [facility] AND [id number] 23:05:00 Test Item Value Reference Range Interpretation Comments UA Glucose (test code Negative *NA*(08/22/18 = UA Glucose) 6:05 PM) [facility] AND [id number] 23:05:00 Test Item Value Reference Range Interpretation Comments UA Leuk Est (test Negative (08/22/18 6:05 code = UA Leuk Est) PM) [facility] AND [id number] 23:05:00 Test Item Value Reference Range Interpretation Comments UA Sq Epi (test code = UA Sq Epi) Many /LPF [facility] AND [id number] 23:05:00 Test Item Value Reference Range Interpretation Comments UA Hyal Cast (test 1 See_Comment [Automat ed message] The code = UA Hyal Cast) system which generated this result transmit kenory reference range : <=2. The reference range was not used to interpr et this result as elton l/abnormal. [facility] AND [id number] 23:05:00 Test Item Value Reference Range Interpretation Comments UA Bacteria (test code = None Seen (08/22/18 UA Bacteria) 6:05 PM) [facility] AND [id number] 23:05:00 Test Item Value Reference Range Interpretation Comments UA Mucus (test code = UA Mucus) Few /LPF [facility] AND [id number] 23:05:00 Test Item Value Reference Range Interpretation Comments UA Blood (test code = Negative (08/22/18 6:05 UA Blood) PM) [facility] AND [id number] 23:05:00 Test Item Value Reference Range Interpretation Comments UA Urobilinogen (test code = UA <=1.0 mg/dL 0.1-1.0 Urobilinogen) [facility] AND [id number] 23:05:00 Test Item Value Reference Range Interpretation Comments UA Nitrite (test code Negative (08/22/18 6:05 = UA Nitrite) PM) [facility] AND [id number] 23:05:00 Test Item Value Reference Range Interpretation Comments UA Color (test code = Yellow *NA*(08/22/18 6:05 UA Color) PM) [facility] AND [id number] 23:05:00 Test Item Value Reference Range Interpretation Comments UA Protein (test code Negative (08/22/18 6:05 = UA Protein) PM) [facility] AND [id number] 23:05:00 Test Item Value Reference Range Interpretation Comments UA pH (test code = UA pH) 6.0 1 5.0-8.0 [facility] AND [id number] 23:05:00 Test Item Value Reference Range Interpretation Comments UA Spec Grav (test code = UA Spec 1.017 1 Grav) [facility] AND [id number] 23:05:00 Test Item Value Reference Range Interpretation Comments UA Turbidity (test code = Clear (08/22/18 6:05 UA Turbidity) PM) [facility] [id number] 23:05:00 Test Item Value Reference Range Interpretation Comments Total CK (test code = Total CK) 29 12-191 [facility] [id number] 23:05:00 Test Item Value Reference Range Interpretation Comments Troponin-I (test code no gt See_Comment [Auto mated message] The = Troponin-I) system which g enerated this result transmit kenroy reference range : <=0.40. The reference r alee was not used to interpr et this result as elton l/abnormal. [facility] [id number] 23:05:00 Test Item Value Reference Range Interpretation Comments BNP (test code = BNP) 73 [facility] [id number] 23:05:00 Test Item Value Reference Range Interpretation Comments eGFR (test code = eGFR) 92 [facility]2019-06-03 23:05:00 Test Item Value Reference Range Interpretation Comments Bili Total (test code = Bili Total) 0.2 0.2-1.3 [facility]2019-06-03 23:05:00 Test Item Value Reference Range Interpretation Comments Albumin Lvl (test code = Albumin Lvl) 3.0 3.5-5.0 [facility]2019-06-03 23:05:00 Test Item Value Reference Range Interpretation Comments Total Protein (test code = Total 7.4 6.4-8.4 Protein) [facility]2019-06-03 23:05:00 Test Item Value Reference Range Interpretation Comments Calcium Lvl (test code = Calcium Lvl) 9.2 8.5-10.5 [facility]2019-06-03 23:05:00 Test Item Value Reference Range Interpretation Comments Alk Phos (test code = Alk Phos) 93 39-136 [facility]2019-06-03 23:05:00 Test Item Value Reference Range Interpretation Comments AST (test code = AST) 9 See_Comment [Auto mated message] The system which ge nerated this result transmit kenroy reference range : <=37. The reference range was not used to interpr et this result as elton l/abnormal. [facility]2019-06-03 23:05:00 Test Item Value Reference Range Interpretation Comments ALT (test code = ALT) 19 See_Comment [Auto mated message] The system which ge nerated this result transmit kenroy reference range : <=65. The reference range was not used to interpr et this result as elton l/abnormal. [facility]2019-06-03 23:05:00 Test Item Value Reference Range Interpretation Comments CO2 (test code = CO2) 30 24-32 [facility]2019-06-03 23:05:00 Test Item Value Reference Range Interpretation Comments Chloride Lvl (test code = Chloride Lvl) 101 95-109 [facility]2019-06-03 23:05:00 Test Item Value Reference Range Interpretation Comments Sodium Lvl (test code = Sodium Lvl) 136 135-145 [facility]2019-06-03 23:05:00 Test Item Value Reference Range Interpretation Comments Creatinine Lvl (test code = Creatinine 0.81 0.50-1.40 Lvl) [facility]2019-06-03 23:05:00 Test Item Value Reference Range Interpretation Comments BUN (test code = BUN) 12 7-22 [facility]2019-06-03 23:05:00 Test Item Value Reference Range Interpretation Comments Glucose Lvl (test code = Glucose Lvl) 89 70-99 [facility]2019-06-03 23:05:00 Test Item Value Reference Range Interpretation Comments Potassium Lvl (test code = Potassium 4.1 3.5-5.1 Lvl) [facility]2019-06-03 23:05:00 Test Item Value Reference Range Interpretation Comments AGAP (test code = AGAP) 9.1 10.0-20.0 [facility]2019-06-03 23:05:00 Test Item Value Reference Range Interpretation Comments B/C Ratio (test code = B/C Ratio) 15 1 6-25 [facility]2019-06-03 23:05:00 Test Item Value Reference Range Interpretation Comments A/G Ratio (test code = A/G Ratio) 0.7 1 0.7-1.6 [facility]2019-06-03 23:05:00 Test Item Value Reference Range Interpretation Comments Globulin (test code = Globulin) 4.4 2.7-4.2 [facility]2019-06-03 23:05:00 Test Item Value Reference Range Interpretation Comments Magnesium Lvl (test code = Magnesium 1.9 1.8-2.4 Lvl) [facility]2019-06-03 23:05:00 Test Item Value Reference Range Interpretation Comments Phosphorus (test code = Phosphorus) 3.3 2.5-4.5 [id number] 23:05:00 Test Item Value Reference Range Interpretation Comments S Preg (test code = S Negative *NA*(08/22/18 Preg) 6:05 PM) [facility] CenterCjateeqYMMUCZUTCK8502-25-36 23:05:00 Test Item Value Reference Range Interpretation Comments RDW (test code = RDW) 17.9 11.5-14.5 [facility] CampusBdgedgjRDNBRQSSCR5526-84-58 23:05:00 Test Item Value Reference Range Interpretation Comments Platelet (test code = Platelet) 320 133-450 [facility] [facility]DmhwgeaSOZVBBQHKO9775-30-03 23:05:00 Test Item Value Reference Range Interpretation Comments RBC (test code = RBC) 4.24 4.20-5.40 [facility]SbdeguaCYTKWTNQXK2598-94-98 23:05:00 Test Item Value Reference Range Interpretation Comments Hgb (test code = Hgb) 9.2 12.0-16.0 [facility] CampusMbafyepLFZEJMECFZ9489-13-20 23:05:00 Test Item Value Reference Range Interpretation Comments MCHC (test code = MCHC) 31.6 32.0-36.0 [facility] CampusJpvmvfiNPUFXYTOEU5285-62-96 23:05:00 Test Item Value Reference Range Interpretation Comments MPV (test code = MPV) 7.4 7.4-10.4 [facility] CampusBhztrgpBPITSHGBSN7903-79-76 23:05:00 Test Item Value Reference Range Interpretation Comments Hct (test code = Hct) 29.1 36.0-48.0 [facility] CampusMzfnenpFYSHJYSRFQ7035-00-26 23:05:00 Test Item Value Reference Range Interpretation Comments MCV (test code = MCV) 68.6 80.0-98.0 [facility] CampusBaujjabOZSDHJMGIH5980-79-71 23:05:00 Test Item Value Reference Range Interpretation Comments MCH (test code = MCH) 21.7 pg 27.0-31.0 [facility] CampusEsvtxziVQNQOZRQYX1576-45-99 23:05:00 Test Item Value Reference Range Interpretation Comments WBC (test code = WBC) 6.8 3.7-10.4 [facility] CampusNjfismvPCOZWGIRLO3415-15-34 23:05:00 Test Item Value Reference Range Interpretation Comments INR (test code = INR) 0.91 1 0.85-1.17 [facility] CampusVyrksbwVMDFLKUPEI5444-53-57 23:05:00 Test Item Value Reference Range Interpretation Comments PT (test code = PT) 12.1 s 12.0-14.7 [facility] CampusJsdbbypKNXNJURRZF8538-28-54 23:05:00 Test Item Value Reference Range Interpretation Comments PTT (test code = PTT) 26.3 s 22.9-35.8 [facility] CampusNbyvjhbRNWSVAJPEP2460-76-67 23:05:00 Test Item Value Reference Range Interpretation Comments Eosinophils # (test code 0.2 See_Comment [A utomated message] The = Eosinophils #) system whic h generated this result tra nsmitted reference range : <=0.5. The reference r alee was not used to int erpret this result as normal/abnormal . [facility] CampusSscumvdJRXXEXDTIQ6350-60-92 23:05:00 Test Item Value Reference Range Interpretation Comments Microcyte (test code = 3+ *NA*(08/22/18 6:05 Microcyte) PM) [facility] CampusWqkbjzwVHYRUUIESZ5468-14-35 23:05:00 Test Item Value Reference Range Interpretation Comments Monocytes (test code = Monocytes) 8.5 2.0-12.0 [facility] CampusDhqwkhmXIMTPDLLYE8911-17-95 23:05:00 Test Item Value Reference Range Interpretation Comments Lymphocytes (test code = Lymphocytes) 34.3 20.0-40.0 [facility] CampusKuvkvtcGLLSLAWHKG6782-42-95 23:05:00 Test Item Value Reference Range Interpretation Comments Eosinophils (test code = 3.1 See_Comment [A utomated message] The Eosinophils) system which ge nerated this result tra nsmitted reference range : <=4.0. The reference r alee was not used to int erpret this result as normal/abnormal . [facility] CampusHdkbozyQNKBXBQEIS3714-25-69 23:05:00 Test Item Value Reference Range Interpretation Comments Basophils (test code = 0.6 See_Comment [Aut omated message] The Basophils) system which ge nerated this result tra nsmitted reference range : <=1.0. The reference r alee was not used to int erpret this result as normal/abnormal . [facility] CampusWintzisTLMOYHLJMP3243-20-95 23:05:00 Test Item Value Reference Range Interpretation Comments Lymphocytes # (test code = Lymphocytes 2.3 1.0-5.5 #) [facility] CampusTlwbhkeEQWLLZDUFK4609-23-49 23:05:00 Test Item Value Reference Range Interpretation Comments Monocytes # (test code 0.6 See_Comment [Aut omated message] The = Monocytes #) system which generated this result tra nsmitted reference range : <=0.8. The reference r alee was not used to int erpret this result as normal/abnormal . [facility] CampusWidomamYECLAKOTES8441-52-93 23:05:00 Test Item Value Reference Range Interpretation Comments Neutrophils # (test code = Neutrophils 3.7 1.5-8.1 #) [facility] CampusOzasyjlHCABFQDZYB8153-33-62 23:05:00 Test Item Value Reference Range Interpretation Comments Segs (test code = Segs) 53.5 45.0-75.0 [facility] AND [id number] 23:05:00 Test Item Value Reference Range Interpretation Comments UA WBC (test code = 2 See_Comment [Automa kenroy message] The UA WBC) system which ge nerated this result transmit kenroy reference range : <=5. The reference range was not used to interpr et this result as elton l/abnormal. [facility] AND [id number] 23:05:00 Test Item Value Reference Range Interpretation Comments UA RBC (test code = 1 See_Comment [Automa kenroy message] The UA RBC) system which ge nerated this result transmit kenroy reference range : <=2. The reference range was not used to interpr et this result as elton l/abnormal. [facility] AND [id number] 23:05:00 Test Item Value Reference Range Interpretation Comments UA Bili (test code = Negative *NA*(08/22/18 UA Bili) 6:05 PM) [facility] AND [id number] 23:05:00 Test Item Value Reference Range Interpretation Comments UA Ketones (test code Negative *NA*(08/22/18 = UA Ketones) 6:05 PM) [facility] AND [id number] 23:05:00 Test Item Value Reference Range Interpretation Comments UA Glucose (test code Negative *NA*(08/22/18 = UA Glucose) 6:05 PM) [facility] AND [id number] 23:05:00 Test Item Value Reference Range Interpretation Comments UA Leuk Est (test Negative (08/22/18 6:05 code = UA Leuk Est) PM) [facility] AND [id number] 23:05:00 Test Item Value Reference Range Interpretation Comments UA Sq Epi (test code = UA Sq Epi) Many /LPF [facility] AND [id number] 23:05:00 Test Item Value Reference Range Interpretation Comments UA Hyal Cast (test 1 See_Comment [Automat ed message] The code = UA Hyal Cast) system which generated this result transmit kenroy reference range : <=2. The reference range was not used to interpr et this result as elton l/abnormal. [facility] AND [id number] 23:05:00 Test Item Value Reference Range Interpretation Comments UA Bacteria (test code = None Seen (08/22/18 UA Bacteria) 6:05 PM) [facility] AND [id number] 23:05:00 Test Item Value Reference Range Interpretation Comments UA Mucus (test code = UA Mucus) Few /LPF [facility] AND [id number] 23:05:00 Test Item Value Reference Range Interpretation Comments UA Blood (test code = Negative (08/22/18 6:05 UA Blood) PM) [facility] AND [id number] 23:05:00 Test Item Value Reference Range Interpretation Comments UA Urobilinogen (test code = UA <=1.0 mg/dL 0.1-1.0 Urobilinogen) [facility] AND [id number] 23:05:00 Test Item Value Reference Range Interpretation Comments UA Nitrite (test code Negative (08/22/18 6:05 = UA Nitrite) PM) [facility] AND [id number] 23:05:00 Test Item Value Reference Range Interpretation Comments UA Color (test code = Yellow *NA*(08/22/18 6:05 UA Color) PM) [facility] AND [id number] 23:05:00 Test Item Value Reference Range Interpretation Comments UA Protein (test code Negative (08/22/18 6:05 = UA Protein) PM) [facility] AND [id number] 23:05:00 Test Item Value Reference Range Interpretation Comments UA pH (test code = UA pH) 6.0 1 5.0-8.0 [facility] AND [id number] 23:05:00 Test Item Value Reference Range Interpretation Comments UA Spec Grav (test code = UA Spec 1.017 1 Grav) [facility] AND [id number] 23:05:00 Test Item Value Reference Range Interpretation Comments UA Turbidity (test code = Clear (6/3/19 6:05 UA Turbidity) PM) [facility] [employer] [id number] 23:05:00 Test Item Value Reference Range Interpretation Comments Total CK (test code = Total CK) 29 12-191 [facility] [employer] [id number] 23:05:00 Test Item Value Reference Range Interpretation Comments Troponin-I (test code no gt See_Comment [Auto mated message] The = Troponin-I) system which g enerated this result transmit kenroy reference range : <=0.40. The reference r alee was not used to interpr et this result as elton l/abnormal. [employer]2019-06-03 23:05:00 Test Item Value Reference Range Interpretation Comments BNP (test code = BNP) 73 [employer] [id number] 23:05:00 Test Item Value Reference Range Interpretation Comments eGFR (test code = eGFR) 92 [facility] BOARDZ2019-06-03 23:05:00 Test Item Value Reference Range Interpretation Comments Bili Total (test code = Bili Total) 0.2 0.2-1.3 [facility] [employer] [id number] 23:05:00 Test Item Value Reference Range Interpretation Comments Albumin Lvl (test code = Albumin Lvl) 3.0 3.5-5.0 [facility] [employer] [id number] 23:05:00 Test Item Value Reference Range Interpretation Comments Total Protein (test code = Total 7.4 6.4-8.4 Protein) [facility] [employer] [id number] 23:05:00 Test Item Value Reference Range Interpretation Comments Calcium Lvl (test code = Calcium Lvl) 9.2 8.5-10.5 [facility] [employer] [id number] 23:05:00 Test Item Value Reference Range Interpretation Comments Alk Phos (test code = Alk Phos) 93 39-136 [facility] [employer] [id number] 23:05:00 Test Item Value Reference Range Interpretation Comments AST (test code = AST) 9 See_Comment [Auto mated message] The system which ge nerated this result transmit kenroy reference range : <=37. The reference range was not used to interpr et this result as elton l/abnormal. [employer]2019-06-03 23:05:00 Test Item Value Reference Range Interpretation Comments ALT (test code = ALT) 19 See_Comment [Auto mated message] The system which ge nerated this result transmit kenroy reference range : <=65. The reference range was not used to interpr et this result as elton l/abnormal. [facility]2019-06-03 23:05:00 Test Item Value Reference Range Interpretation Comments CO2 (test code = CO2) 30 24-32 [facility]2019-06-03 23:05:00 Test Item Value Reference Range Interpretation Comments Chloride Lvl (test code = Chloride Lvl) 101 95-109 [facility]2019-06-03 23:05:00 Test Item Value Reference Range Interpretation Comments Sodium Lvl (test code = Sodium Lvl) 136 135-145 [facility]2019-06-03 23:05:00 Test Item Value Reference Range Interpretation Comments Creatinine Lvl (test code = Creatinine 0.81 0.50-1.40 Lvl) [facility]2019-06-03 23:05:00 Test Item Value Reference Range Interpretation Comments BUN (test code = BUN) 12 7-22 [facility] [id number] 23:05:00 Test Item Value Reference Range Interpretation Comments Glucose Lvl (test code = Glucose Lvl) 89 70-99 [facility] [id number] 23:05:00 Test Item Value Reference Range Interpretation Comments Potassium Lvl (test code = Potassium 4.1 3.5-5.1 Lvl) [facility] [id number] 23:05:00 Test Item Value Reference Range Interpretation Comments AGAP (test code = AGAP) 9.1 10.0-20.0 [facility] [id number] 23:05:00 Test Item Value Reference Range Interpretation Comments B/C Ratio (test code = B/C Ratio) 15 1 6-25 [facility]2019-06-03 23:05:00 Test Item Value Reference Range Interpretation Comments A/G Ratio (test code = A/G Ratio) 0.7 1 0.7-1.6 [facility] [id number] 23:05:00 Test Item Value Reference Range Interpretation Comments Globulin (test code = Globulin) 4.4 2.7-4.2 [facility] [id number] 23:05:00 Test Item Value Reference Range Interpretation Comments Magnesium Lvl (test code = Magnesium 1.9 1.8-2.4 Lvl) [facility]2019-06-03 23:05:00 Test Item Value Reference Range Interpretation Comments Phosphorus (test code = Phosphorus) 3.3 2.5-4.5 [id number] 23:05:00 Test Item Value Reference Range Interpretation Comments S Preg (test code = S Negative *NA*(08/22/18 Preg) 6:05 PM) [facility] CampusPopdlhkBWQZVMHYLE5185-53-73 23:05:00 Test Item Value Reference Range Interpretation Comments RDW (test code = RDW) 17.9 11.5-14.5 [facility] CampusYhxszffGANXRSORYI5928-99-20 23:05:00 Test Item Value Reference Range Interpretation Comments Platelet (test code = Platelet) 320 133-450 [facility] CampusQzumaysSKSSYSOLDJ7851-65-06 23:05:00 Test Item Value Reference Range Interpretation Comments RBC (test code = RBC) 4.24 4.20-5.40 [facility] CampusJlurccwWQERKZPXOB2244-67-12 23:05:00 Test Item Value Reference Range Interpretation Comments Hgb (test code = Hgb) 9.2 12.0-16.0 [facility] CampusPgjgxneDUEMNYQBPD2610-96-85 23:05:00 Test Item Value Reference Range Interpretation Comments MCHC (test code = MCHC) 31.6 32.0-36.0 [facility] CampusLuppxqrPQUIBGSZVW8424-59-89 23:05:00 Test Item Value Reference Range Interpretation Comments MPV (test code = MPV) 7.4 7.4-10.4 [facility] CampusDfhhwdwLMKMYQGKAN3008-56-37 23:05:00 Test Item Value Reference Range Interpretation Comments Hct (test code = Hct) 29.1 36.0-48.0 [facility] CampusSxmfomaOCHJBXHMXM0448-50-49 23:05:00 Test Item Value Reference Range Interpretation Comments MCV (test code = MCV) 68.6 80.0-98.0 [facility] CampusBsciwzpFFJOQDOXLT5157-79-30 23:05:00 Test Item Value Reference Range Interpretation Comments MCH (test code = MCH) 21.7 pg 27.0-31.0 [facility] CampusLhkeogaPOKAFMLMTK1086-24-14 23:05:00 Test Item Value Reference Range Interpretation Comments WBC (test code = WBC) 6.8 3.7-10.4 [facility] CampusWopdocaZSOSSXPDNM3156-13-39 23:05:00 Test Item Value Reference Range Interpretation Comments INR (test code = INR) 0.91 1 0.85-1.17 [facility] CampusVywdqpxZWGDURZXTY0476-04-44 23:05:00 Test Item Value Reference Range Interpretation Comments PT (test code = PT) 12.1 s 12.0-14.7 [facility] CampusCymozprFBUELDLZCS9045-23-34 23:05:00 Test Item Value Reference Range Interpretation Comments PTT (test code = PTT) 26.3 s 22.9-35.8 [facility] CampusHoncjelXODVVWJEEH7984-27-74 23:05:00 Test Item Value Reference Range Interpretation Comments Eosinophils # (test code 0.2 See_Comment [A utomated message] The = Eosinophils #) system whic h generated this result tra nsmitted reference range : <=0.5. The reference r alee was not used to int erpret this result as normal/abnormal . [facility] CampusLmjldtpREBCJTVKOA7429-84-52 23:05:00 Test Item Value Reference Range Interpretation Comments Microcyte (test code = 3+ *NA*(08/22/18 6:05 Microcyte) PM) [facility] CampusBpsnkdxGKGNVQUZFL4749-24-55 23:05:00 Test Item Value Reference Range Interpretation Comments Monocytes (test code = Monocytes) 8.5 2.0-12.0 [facility] CampusCbonsmsEKVXIJWDXV0530-80-69 23:05:00 Test Item Value Reference Range Interpretation Comments Lymphocytes (test code = Lymphocytes) 34.3 20.0-40.0 [facility] CampusIovcsyoESOCHPQZSI4634-17-98 23:05:00 Test Item Value Reference Range Interpretation Comments Eosinophils (test code = 3.1 See_Comment [A utomated message] The Eosinophils) system which ge nerated this result tra nsmitted reference range : <=4.0. The reference r alee was not used to int erpret this result as normal/abnormal . [facility] CampusOxsdszgVETDJEZHDC4408-83-15 23:05:00 Test Item Value Reference Range Interpretation Comments Basophils (test code = 0.6 See_Comment [Aut omated message] The Basophils) system which ge nerated this result tra nsmitted reference range : <=1.0. The reference r alee was not used to int erpret this result as normal/abnormal . [facility] CampusVxzoggzNKSLPZNALL1873-82-59 23:05:00 Test Item Value Reference Range Interpretation Comments Lymphocytes # (test code = Lymphocytes 2.3 1.0-5.5 #) [facility] CampusJghongbUPHJNLZFJI0258-26-44 23:05:00 Test Item Value Reference Range Interpretation Comments Monocytes # (test code 0.6 See_Comment [Aut omated message] The = Monocytes #) system which generated this result tra nsmitted reference range : <=0.8. The reference r alee was not used to int erpret this result as normal/abnormal . [facility] CampusIrncflcLCAFOSRXZS5684-69-60 23:05:00 Test Item Value Reference Range Interpretation Comments Neutrophils # (test code = Neutrophils 3.7 1.5-8.1 #) [facility] CampusXuvqsvmPZNXHLIINE9339-17-14 23:05:00 Test Item Value Reference Range Interpretation Comments Segs (test code = Segs) 53.5 45.0-75.0 [facility]2019-06-03 23:05:00 Test Item Value Reference Range Interpretation Comments UA WBC (test code = 2 See_Comment [Automa kenroy message] The UA WBC) system which ge nerated this result transmit kenroy reference range : <=5. The reference range was not used to interpr et this result as elton l/abnormal. [facility]2019-06-03 23:05:00 Test Item Value Reference Range Interpretation Comments UA RBC (test code = 1 See_Comment [Automa kenroy message] The UA RBC) system which ge nerated this result transmit kenroy reference range : <=2. The reference range was not used to interpr et this result as elton l/abnormal. [facility]2019-06-03 23:05:00 Test Item Value Reference Range Interpretation Comments UA Bili (test code = Negative *NA*(08/22/18 UA Bili) 6:05 PM) [facility]2019-06-03 23:05:00 Test Item Value Reference Range Interpretation Comments UA Ketones (test code Negative *NA*(08/22/18 = UA Ketones) 6:05 PM) [facility] AND [id number] 23:05:00 Test Item Value Reference Range Interpretation Comments UA Glucose (test code Negative *NA*(08/22/18 = UA Glucose) 6:05 PM) [facility] AND [id number] 23:05:00 Test Item Value Reference Range Interpretation Comments UA Leuk Est (test Negative (08/22/18 6:05 code = UA Leuk Est) PM) [facility] AND [id number] 23:05:00 Test Item Value Reference Range Interpretation Comments UA Sq Epi (test code = UA Sq Epi) Many /LPF [facility] AND [id number] 23:05:00 Test Item Value Reference Range Interpretation Comments UA Hyal Cast (test 1 See_Comment [Automat ed message] The code = UA Hyal Cast) system which generated this result transmit kenroy reference range : <=2. The reference range was not used to interpr et this result as elton l/abnormal. [facility] AND [id number] 23:05:00 Test Item Value Reference Range Interpretation Comments UA Bacteria (test code = None Seen (08/22/18 UA Bacteria) 6:05 PM) [facility] AND [id number] 23:05:00 Test Item Value Reference Range Interpretation Comments UA Mucus (test code = UA Mucus) Few /LPF [facility] AND [id number] 23:05:00 Test Item Value Reference Range Interpretation Comments UA Blood (test code = Negative (08/22/18 6:05 UA Blood) PM) [facility] AND [id number] 23:05:00 Test Item Value Reference Range Interpretation Comments UA Urobilinogen (test code = UA <=1.0 mg/dL 0.1-1.0 Urobilinogen) [facility] AND [id number] 23:05:00 Test Item Value Reference Range Interpretation Comments UA Nitrite (test code Negative (08/22/18 6:05 = UA Nitrite) PM) [facility] AND [id number] 23:05:00 Test Item Value Reference Range Interpretation Comments UA Color (test code = Yellow *NA*(08/22/18 6:05 UA Color) PM) [facility] AND [id number] 23:05:00 Test Item Value Reference Range Interpretation Comments UA Protein (test code Negative (08/22/18 6:05 = UA Protein) PM) [facility] [id number] 23:05:00 Test Item Value Reference Range Interpretation Comments UA pH (test code = UA pH) 6.0 1 5.0-8.0 [facility] [id number] 23:05:00 Test Item Value Reference Range Interpretation Comments UA Spec Grav (test code = UA Spec 1.017 1 Grav) [facility] AND [id number] 23:05:00 Test Item Value Reference Range Interpretation Comments UA Turbidity (test code = Clear (08/22/18 6:05 UA Turbidity) PM) [facility] [id number] 23:05:00 Test Item Value Reference Range Interpretation Comments Total CK (test code = Total CK) 29 12-191 [facility] [employer] [id number] 23:05:00 Test Item Value Reference Range Interpretation Comments Troponin-I (test code no gt See_Comment [Auto mated message] The = Troponin-I) system which g enerated this result transmit kenroy reference range : <=0.40. The reference r alee was not used to interpr et this result as elton l/abnormal. [facility] [employer] [id number] 23:05:00 Test Item Value Reference Range Interpretation Comments BNP (test code = BNP) 73 [facility] [employer] [id number] 23:05:00 Test Item Value Reference Range Interpretation Comments eGFR (test code = eGFR) 92 [facility] [employer] [id number] 23:05:00 Test Item Value Reference Range Interpretation Comments Bili Total (test code = Bili Total) 0.2 0.2-1.3 [facility] [id number] 23:05:00 Test Item Value Reference Range Interpretation Comments Albumin Lvl (test code = Albumin Lvl) 3.0 3.5-5.0 [facility] [id number] 23:05:00 Test Item Value Reference Range Interpretation Comments Total Protein (test code = Total 7.4 6.4-8.4 Protein) [facility] [employer] [id number] 23:05:00 Test Item Value Reference Range Interpretation Comments Calcium Lvl (test code = Calcium Lvl) 9.2 8.5-10.5 [facility] CenterSentimentSAMPSON REGIONAL MEDICAL [id number] 23:05:00 Test Item Value Reference Range Interpretation Comments Alk Phos (test code = Alk Phos) 93 39-136 [facility]2019-06-03 23:05:00 Test Item Value Reference Range Interpretation Comments AST (test code = AST) 9 See_Comment [Auto mated message] The system which ge nerated this result transmit kenroy reference range : <=37. The reference range was not used to interpr et this result as elton l/abnormal. [facility] CenterSentimentSAMPSON REGIONAL MEDICAL [id number] 23:05:00 Test Item Value Reference Range Interpretation Comments ALT (test code = ALT) 19 See_Comment [Auto mated message] The system which ge nerated this result transmit kenroy reference range : <=65. The reference range was not used to interpr et this result as elton l/abnormal. [facility] CenterCoinbase [id number] 23:05:00 Test Item Value Reference Range Interpretation Comments CO2 (test code = CO2) 30 24-32 [facility] CenterSentimentSAMPSON REGIONAL MEDICAL [id number] 23:05:00 Test Item Value Reference Range Interpretation Comments Chloride Lvl (test code = Chloride Lvl) 101 95-109 [facility]2019-06-03 23:05:00 Test Item Value Reference Range Interpretation Comments Sodium Lvl (test code = Sodium Lvl) 136 135-145 [facility] CenterSentimentSAMPSON REGIONAL MEDICAL [id number] 23:05:00 Test Item Value Reference Range Interpretation Comments Creatinine Lvl (test code = Creatinine 0.81 0.50-1.40 Lvl) [facility]2019-06-03 23:05:00 Test Item Value Reference Range Interpretation Comments BUN (test code = BUN) 12 7-22 [facility] CenterCoinbase [id number] 23:05:00 Test Item Value Reference Range Interpretation Comments Glucose Lvl (test code = Glucose Lvl) 89 70-99 [facility]2019-06-03 23:05:00 Test Item Value Reference Range Interpretation Comments Potassium Lvl (test code = Potassium 4.1 3.5-5.1 Lvl) [facility] CenterSentimentSAMPSON REGIONAL MEDICAL [id number] 23:05:00 Test Item Value Reference Range Interpretation Comments AGAP (test code = AGAP) 9.1 10.0-20.0 [facility]2019-06-03 23:05:00 Test Item Value Reference Range Interpretation Comments B/C Ratio (test code = B/C Ratio) 15 1 6-25 [facility]2019-06-03 23:05:00 Test Item Value Reference Range Interpretation Comments A/G Ratio (test code = A/G Ratio) 0.7 1 0.7-1.6 [facility]2019-06-03 23:05:00 Test Item Value Reference Range Interpretation Comments Globulin (test code = Globulin) 4.4 2.7-4.2 [facility]2019-06-03 23:05:00 Test Item Value Reference Range Interpretation Comments Magnesium Lvl (test code = Magnesium 1.9 1.8-2.4 Lvl) [facility]2019-06-03 23:05:00 Test Item Value Reference Range Interpretation Comments Phosphorus (test code = Phosphorus) 3.3 2.5-4.5 [facility]landsIompvzaSCIBIIITIMZSD4388-22-36 23:05:00 Test Item Value Reference Range Interpretation Comments S Preg (test code = S Negative *NA*(08/22/18 Preg) 6:05 PM) [facility] CampusWwyeixrNIFVTRXUWL9720-71-30 23:05:00 Test Item Value Reference Range Interpretation Comments RDW (test code = RDW) 17.9 11.5-14.5 [facility] CampusTgmhfcsEIUJWAKAXG8539-02-65 23:05:00 Test Item Value Reference Range Interpretation Comments Platelet (test code = Platelet) 320 133-450 [facility] CampusEhptwuhHOMJUKPBNM7602-03-42 23:05:00 Test Item Value Reference Range Interpretation Comments RBC (test code = RBC) 4.24 4.20-5.40 [facility] CampusBeveutkFESKVJSVWC9520-81-16 23:05:00 Test Item Value Reference Range Interpretation Comments Hgb (test code = Hgb) 9.2 12.0-16.0 [facility] CampusGyunkqvLYICDEHMRB6943-70-09 23:05:00 Test Item Value Reference Range Interpretation Comments MCHC (test code = MCHC) 31.6 32.0-36.0 [facility] CampusVsnctxaKXCBSNJFXB8460-58-70 23:05:00 Test Item Value Reference Range Interpretation Comments MPV (test code = MPV) 7.4 7.4-10.4 [facility] CampusQhfccjpNEPSIAXJRY7973-56-59 23:05:00 Test Item Value Reference Range Interpretation Comments Hct (test code = Hct) 29.1 36.0-48.0 [facility] CampusNavafpoJNFVBTIBUK7731-44-54 23:05:00 Test Item Value Reference Range Interpretation Comments MCV (test code = MCV) 68.6 80.0-98.0 [facility] CampusUtmlfxuLVAKCKNQJX0283-06-77 23:05:00 Test Item Value Reference Range Interpretation Comments MCH (test code = MCH) 21.7 pg 27.0-31.0 [facility] CampusPohjdqjMLVUHDCVQD7425-17-22 23:05:00 Test Item Value Reference Range Interpretation Comments WBC (test code = WBC) 6.8 3.7-10.4 [facility] CampusUvhsnafZEQCRVNJVP3805-73-27 23:05:00 Test Item Value Reference Range Interpretation Comments INR (test code = INR) 0.91 1 0.85-1.17 [facility] CampusDybauvaPHGPLHFTPW6219-82-50 23:05:00 Test Item Value Reference Range Interpretation Comments PT (test code = PT) 12.1 s 12.0-14.7 [facility] CampusMbeagbgUBANLPYWKH3356-19-90 23:05:00 Test Item Value Reference Range Interpretation Comments PTT (test code = PTT) 26.3 s 22.9-35.8 [facility] CampusGuzkpvgFJJJRMWHYD7270-84-68 23:05:00 Test Item Value Reference Range Interpretation Comments Eosinophils # (test code 0.2 See_Comment [A utomated message] The = Eosinophils #) system whic h generated this result tra nsmitted reference range : <=0.5. The reference r alee was not used to int erpret this result as normal/abnormal . [facility] CampusYtxrzdvPWNHZRWAFQ5446-59-67 23:05:00 Test Item Value Reference Range Interpretation Comments Microcyte (test code = 3+ *NA*(08/22/18 6:05 Microcyte) PM) [facility] CampusBcnkngtNWPUECUOGZ7743-23-62 23:05:00 Test Item Value Reference Range Interpretation Comments Monocytes (test code = Monocytes) 8.5 2.0-12.0 [facility] CampusSltgztmTEZXTPOAMT6195-48-06 23:05:00 Test Item Value Reference Range Interpretation Comments Lymphocytes (test code = Lymphocytes) 34.3 20.0-40.0 [facility] CampusMewisejUHDZKMNKXU0527-06-19 23:05:00 Test Item Value Reference Range Interpretation Comments Eosinophils (test code = 3.1 See_Comment [A utomated message] The Eosinophils) system which ge nerated this result tra nsmitted reference range : <=4.0. The reference r alee was not used to int erpret this result as normal/abnormal . [facility] CampusOfchxwsZQKKQWFRSB0981-11-76 23:05:00 Test Item Value Reference Range Interpretation Comments Basophils (test code = 0.6 See_Comment [Aut omated message] The Basophils) system which ge nerated this result tra nsmitted reference range : <=1.0. The reference r alee was not used to int erpret this result as normal/abnormal . [facility] CampusXydtpqxIMYFYAJUSV0394-63-57 23:05:00 Test Item Value Reference Range Interpretation Comments Lymphocytes # (test code = Lymphocytes 2.3 1.0-5.5 #) [facility] CampusQepmigvASISCCPMGO5033-66-73 23:05:00 Test Item Value Reference Range Interpretation Comments Monocytes # (test code 0.6 See_Comment [Aut omated message] The = Monocytes #) system which generated this result tra nsmitted reference range : <=0.8. The reference r alee was not used to int erpret this result as normal/abnormal . [facility] CampusBwzabvhVCNUNDTIPF0747-30-60 23:05:00 Test Item Value Reference Range Interpretation Comments Neutrophils # (test code = Neutrophils 3.7 1.5-8.1 #) [facility] CampusJzjppjbNKALUJQZFE5217-25-89 23:05:00 Test Item Value Reference Range Interpretation Comments Segs (test code = Segs) 53.5 45.0-75.0 [facility]2019-06-03 23:05:00 Test Item Value Reference Range Interpretation Comments UA WBC (test code = 2 See_Comment [Automa kenroy message] The UA WBC) system which ge nerated this result transmit kenroy reference range : <=5. The reference range was not used to interpr et this result as elton l/abnormal. [facility]2019-06-03 23:05:00 Test Item Value Reference Range Interpretation Comments UA RBC (test code = 1 See_Comment [Automa kenroy message] The UA RBC) system which ge nerated this result transmit kenroy reference range : <=2. The reference range was not used to interpr et this result as elton l/abnormal. [facility] AND [id number] 23:05:00 Test Item Value Reference Range Interpretation Comments UA Bili (test code = Negative *NA*(08/22/18 UA Bili) 6:05 PM) [facility] AND [id number] 23:05:00 Test Item Value Reference Range Interpretation Comments UA Ketones (test code Negative *NA*(08/22/18 = UA Ketones) 6:05 PM) [facility] AND [id number] 23:05:00 Test Item Value Reference Range Interpretation Comments UA Glucose (test code Negative *NA*(08/22/18 = UA Glucose) 6:05 PM) [facility] AND [id number] 23:05:00 Test Item Value Reference Range Interpretation Comments UA Leuk Est (test Negative (08/22/18 6:05 code = UA Leuk Est) PM) [facility] AND [id number] 23:05:00 Test Item Value Reference Range Interpretation Comments UA Sq Epi (test code = UA Sq Epi) Many /LPF [facility] AND [id number] 23:05:00 Test Item Value Reference Range Interpretation Comments UA Hyal Cast (test 1 See_Comment [Automat ed message] The code = UA Hyal Cast) system which generated this result transmit kenroy reference range : <=2. The reference range was not used to interpr et this result as elton l/abnormal. [facility] AND [id number] 23:05:00 Test Item Value Reference Range Interpretation Comments UA Bacteria (test code = None Seen (08/22/18 UA Bacteria) 6:05 PM) [facility] AND [id number] 23:05:00 Test Item Value Reference Range Interpretation Comments UA Mucus (test code = UA Mucus) Few /LPF [facility] AND [id number] 23:05:00 Test Item Value Reference Range Interpretation Comments UA Blood (test code = Negative (08/22/18 6:05 UA Blood) PM) [facility] AND [id number] 23:05:00 Test Item Value Reference Range Interpretation Comments UA Urobilinogen (test code = UA <=1.0 mg/dL 0.1-1.0 Urobilinogen) [facility] AND [id number] 23:05:00 Test Item Value Reference Range Interpretation Comments UA Nitrite (test code Negative (08/22/18 6:05 = UA Nitrite) PM) [facility] AND [id number] 23:05:00 Test Item Value Reference Range Interpretation Comments UA Color (test code = Yellow *NA*(08/22/18 6:05 UA Color) PM) [facility] AND [id number] 23:05:00 Test Item Value Reference Range Interpretation Comments UA Protein (test code Negative (08/22/18 6:05 = UA Protein) PM) [facility] AND [id number] 23:05:00 Test Item Value Reference Range Interpretation Comments UA pH (test code = UA pH) 6.0 1 5.0-8.0 [facility] AND [id number] 23:05:00 Test Item Value Reference Range Interpretation Comments UA Spec Grav (test code = UA Spec 1.017 1 Grav) [facility] AND [id number] 23:05:00 Test Item Value Reference Range Interpretation Comments UA Turbidity (test code = Clear (08/22/18 6:05 UA Turbidity) PM) [facility] [id number] 08:05:00 Test Item Value Reference Range Interpretation Comments Troponin-I (test code no gt See_Comment [Auto mated message] The = Troponin-I) system which g enerated this result transmit kenroy reference range : <=0.40. The reference r alee was not used to interpr et this result as elton l/abnormal. [facility] CenterSentimentCARFilterBoxx Water & EnvironmentalAC [id number] 08:05:00 Test Item Value Reference Range Interpretation Comments Troponin-I (test code no gt See_Comment [Auto mated message] The = Troponin-I) system which g enerated this result transmit kenroy reference range : <=0.40. The reference r alee was not used to interpr et this result as elton l/abnormal. [facility] CenterGociety [id number] 08:05:00 Test Item Value Reference Range Interpretation Comments Troponin-I (test code no gt See_Comment [Auto mated message] The = Troponin-I) system which g enerated this result transmit kenroy reference range : <=0.40. The reference r alee was not used to interpr et this result as elton l/abnormal. [facility] [employer] [id number] 08:05:00 Test Item Value Reference Range Interpretation Comments Troponin-I (test code no gt See_Comment [Auto mated message] The = Troponin-I) system which g enerated this result transmit kenroy reference range : <=0.40. The reference r alee was not used to interpr et this result as elton l/abnormal. [facility] BOARDZ2019-05-30 04:32:00 Test Item Value Reference Range Interpretation Comments Total Protein (test code = Total 7.4 6.4-8.4 Protein) [facility]Z2019-05-30 04:32:00 Test Item Value Reference Range Interpretation Comments Albumin Lvl (test code = Albumin Lvl) 3.1 3.5-5.0 [facility]Z2019-05-30 04:32:00 Test Item Value Reference Range Interpretation Comments AST (test code = AST) 12 See_Comment [Auto mated message] The system which ge nerated this result transmit kenroy reference range : <=37. The reference range was not used to interpr et this result as elton l/abnormal. [facility] BO[facility]Z2019-05-30 04:32:00 Test Item Value Reference Range Interpretation Comments ALT (test code = ALT) 18 See_Comment [Auto mated message] The system which ge nerated this result transmit kenroy reference range : <=65. The reference range was not used to interpr et this result as elton l/abnormal. [facility]Z2019-05-30 04:32:00 Test Item Value Reference Range Interpretation Comments Alk Phos (test code = Alk Phos) 101 39-136 [facility]2019-05-30 04:32:00 Test Item Value Reference Range Interpretation Comments Bili Total (test code = Bili Total) 0.2 0.2-1.3 [facility]2019-05-30 04:32:00 Test Item Value Reference Range Interpretation Comments Glucose Lvl (test code = Glucose Lvl) 96 70-99 [facility]2019-05-30 04:32:00 Test Item Value Reference Range Interpretation Comments BUN (test code = BUN) 14 7-22 [facility]2019-05-30 04:32:00 Test Item Value Reference Range Interpretation Comments Creatinine Lvl (test code = Creatinine 0.84 0.50-1.40 Lvl) [facility]2019-05-30 04:32:00 Test Item Value Reference Range Interpretation Comments Sodium Lvl (test code = Sodium Lvl) 134 135-145 [facility]2019-05-30 04:32:00 Test Item Value Reference Range Interpretation Comments AGAP (test code = AGAP) 7.8 10.0-20.0 [facility]2019-05-30 04:32:00 Test Item Value Reference Range Interpretation Comments Globulin (test code = Globulin) 4.3 2.7-4.2 [facility]2019-05-30 04:32:00 Test Item Value Reference Range Interpretation Comments B/C Ratio (test code = B/C Ratio) 17 1 6-25 [facility]2019-05-30 04:32:00 Test Item Value Reference Range Interpretation Comments A/G Ratio (test code = A/G Ratio) 0.7 1 0.7-1.6 [place] [id number] 04:32:00 Test Item Value Reference Range Interpretation Comments S Preg (test code = S Negative *NA*(08/17/18 Preg) 11:32 PM) [facility] Camp[id number] 04:32:00 Test Item Value Reference Range Interpretation Comments Microcyte (test code = 2+ *ABN*(08/17/18 Microcyte) 11:32 PM) [facility] CampusRyvxbkdGVNJQJXRJR9464-97-79 04:32:00 Test Item Value Reference Range Interpretation Comments Eosinophils # (test code 0.2 See_Comment [A utomated message] The = Eosinophils #) system whic h generated this result tra nsmitted reference range : <=0.5. The reference r alee was not used to int erpret this result as normal/abnormal . [facility] CampusTyuzhsiOCBWJJOEVX8518-11-46 04:32:00 Test Item Value Reference Range Interpretation Comments Monocytes # (test code 0.6 See_Comment [Aut omated message] The = Monocytes #) system which generated this result tra nsmitted reference range : <=0.8. The reference r alee was not used to int erpret this result as normal/abnormal . [facility] CampusPujdwdbXSZSRULSVQ3159-30-15 04:32:00 Test Item Value Reference Range Interpretation Comments Basophils # (test code 0.1 See_Comment [Aut omated message] The = Basophils #) system which generated this result tra nsmitted reference range : <=0.2. The reference r alee was not used to int erpret this result as normal/abnormal . [facility] CampusWpetfgfEMHTJCUJTY0997-95-90 04:32:00 Test Item Value Reference Range Interpretation Comments Lymphocytes # (test code = Lymphocytes 3.2 1.0-5.5 #) [facility] CampusZjfoumwEEQMFNHZIT5452-27-65 04:32:00 Test Item Value Reference Range Interpretation Comments Segs (test code = Segs) 52.1 45.0-75.0 [facility] CampusMdcedvdWMTNUDOGLS5177-60-42 04:32:00 Test Item Value Reference Range Interpretation Comments Lymphocytes (test code = Lymphocytes) 37.8 20.0-40.0 [facility] CampusSmbekdnCYWKFSLVEM1952-61-72 04:32:00 Test Item Value Reference Range Interpretation Comments Basophils (test code = 1.0 See_Comment [Aut omated message] The Basophils) system which ge nerated this result tra nsmitted reference range : <=1.0. The reference r alee was not used to int erpret this result as normal/abnormal . [facility] CampusCuqintjHXQVFZHMZB6633-02-61 04:32:00 Test Item Value Reference Range Interpretation Comments Eosinophils (test code = 2.1 See_Comment [A utomated message] The Eosinophils) system which ge nerated this result tra nsmitted reference range : <=4.0. The reference r alee was not used to int erpret this result as normal/abnormal . [facility] CampusLpaqmexUJSAHRSYOE6695-08-33 04:32:00 Test Item Value Reference Range Interpretation Comments Monocytes (test code = Monocytes) 7.0 2.0-12.0 [facility] CampusPgaccmvHWQXNGHNRW8958-70-81 04:32:00 Test Item Value Reference Range Interpretation Comments Neutrophils # (test code = Neutrophils 4.4 1.5-8.1 #) [facility] CampusDywpvjnKHSGPFIPPA5764-42-16 04:32:00 Test Item Value Reference Range Interpretation Comments PTT (test code = PTT) 25.2 s 22.9-35.8 [facility] CampusSqbkhonGKVXPVXIMO7796-02-58 04:32:00 Test Item Value Reference Range Interpretation Comments INR (test code = INR) 0.95 1 0.85-1.17 [facility] CampusOsfvaqqVAOFEVPNXC4985-94-98 04:32:00 Test Item Value Reference Range Interpretation Comments PT (test code = PT) 12.5 s 12.0-14.7 [facility] CampusMqzjgleTZBGBLLOHV5212-92-34 04:32:00 Test Item Value Reference Range Interpretation Comments Hgb (test code = Hgb) 9.3 12.0-16.0 [facility] [id number] 04:32:00 Test Item Value Reference Range Interpretation Comments Hct (test code = Hct) 30.0 36.0-48.0 [facility] CampusAadsodzPAPXYOAXIR2120-99-24 04:32:00 Test Item Value Reference Range Interpretation Comments MCH (test code = MCH) 21.8 pg 27.0-31.0 [facility] CampusHobhbsmYZOIJRWVBP8394-05-33 04:32:00 Test Item Value Reference Range Interpretation Comments MCV (test code = MCV) 70.2 80.0-98.0 [facility] CampusZrwgkfbUWUFNWDJTW4085-89-02 04:32:00 Test Item Value Reference Range Interpretation Comments Platelet (test code = Platelet) 333 133-450 [facility] CampusOocsvciRYYYSQPLOK7443-44-78 04:32:00 Test Item Value Reference Range Interpretation Comments RDW (test code = RDW) 17.9 11.5-14.5 [facility] CampusWrdoikaTHMZDIDBFM1858-82-98 04:32:00 Test Item Value Reference Range Interpretation Comments MCHC (test code = MCHC) 31.0 32.0-36.0 [facility] CampusTpnfnfxBOFWEEBYLI3814-77-22 04:32:00 Test Item Value Reference Range Interpretation Comments MPV (test code = MPV) 7.3 7.4-10.4 [facility] CampusVhysbxyCXSLXNXSOX9885-51-92 04:32:00 Test Item Value Reference Range Interpretation Comments RBC (test code = RBC) 4.28 4.20-5.40 [facility]OwfkotfFKREZWPPWS8275-29-01 04:32:00 Test Item Value Reference Range Interpretation Comments WBC (test code = WBC) 8.5 3.7-10.4 [facility] AND [id number] 04:32:00 Test Item Value Reference Range Interpretation Comments UA WBC (test code = 1 See_Comment [Automa kenroy message] The UA WBC) system which ge nerated this result transmit kenroy reference range : <=5. The reference range was not used to interpr et this result as elton l/abnormal. [facility] AND [id number] 04:32:00 Test Item Value Reference Range Interpretation Comments UA RBC (test code = 3 See_Comment [Automa kenroy message] The UA RBC) system which ge nerated this result transmit kenroy reference range : <=2. The reference range was not used to interpr et this result as elton l/abnormal. [facility] AND [id number] 04:32:00 Test Item Value Reference Range Interpretation Comments UA Leuk Est (test Negative (08/17/18 11:32 code = UA Leuk Est) PM) [facility] AND [id number] 04:32:00 Test Item Value Reference Range Interpretation Comments UA Sq Epi (test code = UA Sq Occasional /LPF Epi) [facility] AND [id number] 04:32:00 Test Item Value Reference Range Interpretation Comments UA Mucus (test code = UA Mucus) Few /LPF [facility] AND [id number] 04:32:00 Test Item Value Reference Range Interpretation Comments UA Color (test code = Yellow *NA*(08/17/18 UA Color) 11:32 PM) [facility] AND [id number] 04:32:00 Test Item Value Reference Range Interpretation Comments UA Urobilinogen (test code = UA <=1.0 mg/dL 0.1-1.0 Urobilinogen) [facility] AND [id number] 04:32:00 Test Item Value Reference Range Interpretation Comments UA Nitrite (test code Negative (08/17/18 11:32 = UA Nitrite) PM) [facility] AND [id number] 04:32:00 Test Item Value Reference Range Interpretation Comments UA Bili (test code = Negative *NA*(08/17/18 UA Bili) 11:32 PM) [facility] [id number] 04:32:00 Test Item Value Reference Range Interpretation Comments UA Blood (test code = Negative (08/17/18 11:32 UA Blood) PM) [facility] [id number] 04:32:00 Test Item Value Reference Range Interpretation Comments UA Ketones (test code Negative *NA*(08/17/18 = UA Ketones) 11:32 PM) [facility] [id number] 04:32:00 Test Item Value Reference Range Interpretation Comments UA Protein (test code Negative (08/17/18 11:32 = UA Protein) PM) [facility] [id number] 04:32:00 Test Item Value Reference Range Interpretation Comments UA Glucose (test code Negative *NA*(08/17/18 = UA Glucose) 11:32 PM) [facility] [id number] 04:32:00 Test Item Value Reference Range Interpretation Comments UA Spec Grav (test code = UA Spec 1.[address] [facility] AND [id number] 04:32:00 Test Item Value Reference Range Interpretation Comments UA pH (test code = UA pH) 5.0 1 5.0-8.0 [facility] AND [id number] 04:32:00 Test Item Value Reference Range Interpretation Comments UA Turbidity (test code = Clear (08/17/18 11:32 UA Turbidity) PM) [facility] CenterannCARDIAC [id number] 04:32:00 Test Item Value Reference Range Interpretation Comments BNP (test code = BNP) 65 [facility]annCARD[facility]AC [id number] 04:32:00 Test Item Value Reference Range Interpretation Comments Troponin-I (test code no gt See_Comment [Auto mated message] The = Troponin-I) system which g enerated this result transmit kenroy reference range : <=0.40. The reference r alee was not used to interpr et this result as elton l/abnormal. [facility] CenterannCARDIAC [id number] 04:32:00 Test Item Value Reference Range Interpretation Comments Total CK (test code = Total CK) 40 12-191 [facility]2019-05-30 04:32:00 Test Item Value Reference Range Interpretation Comments eGFR (test code = eGFR) 88 [facility]2019-05-30 04:32:00 Test Item Value Reference Range Interpretation Comments Potassium Lvl (test code = Potassium 3.8 3.5-5.1 Lvl) [facility]2019-05-30 04:32:00 Test Item Value Reference Range Interpretation Comments Chloride Lvl (test code = Chloride Lvl) 102 95-109 [facility]2019-05-30 04:32:00 Test Item Value Reference Range Interpretation Comments Calcium Lvl (test code = Calcium Lvl) 8.9 8.5-10.5 [facility]2019-05-30 04:32:00 Test Item Value Reference Range Interpretation Comments CO2 (test code = CO2) 28 24-32 [place] [id number] 04:32:00 Test Item Value Reference Range Interpretation Comments Total Protein (test code = Total 7.4 6.4-8.4 Protein) [facility]2019-05-30 04:32:00 Test Item Value Reference Range Interpretation Comments Albumin Lvl (test code = Albumin Lvl) 3.1 3.5-5.0 [facility]2019-05-30 04:32:00 Test Item Value Reference Range Interpretation Comments AST (test code = AST) 12 See_Comment [Auto mated message] The system which ge nerated this result transmit kenroy reference range : <=37. The reference range was not used to interpr et this result as elton l/abnormal. [facility]2019-05-30 04:32:00 Test Item Value Reference Range Interpretation Comments ALT (test code = ALT) 18 See_Comment [Auto mated message] The system which ge nerated this result transmit kenroy reference range : <=65. The reference range was not used to interpr et this result as elton l/abnormal. [facility]2019-05-30 04:32:00 Test Item Value Reference Range Interpretation Comments Alk Phos (test code = Alk Phos) 101 39-136 [facility]2019-05-30 04:32:00 Test Item Value Reference Range Interpretation Comments Bili Total (test code = Bili Total) 0.2 0.2-1.3 [facility]2019-05-30 04:32:00 Test Item Value Reference Range Interpretation Comments Glucose Lvl (test code = Glucose Lvl) 96 70-99 [facility]2019-05-30 04:32:00 Test Item Value Reference Range Interpretation Comments BUN (test code = BUN) 14 7-22 [facility]2019-05-30 04:32:00 Test Item Value Reference Range Interpretation Comments Creatinine Lvl (test code = Creatinine 0.84 0.50-1.40 Lvl) [facility]2019-05-30 04:32:00 Test Item Value Reference Range Interpretation Comments Sodium Lvl (test code = Sodium Lvl) 134 135-145 [facility]2019-05-30 04:32:00 Test Item Value Reference Range Interpretation Comments AGAP (test code = AGAP) 7.8 10.0-20.0 [facility]2019-05-30 04:32:00 Test Item Value Reference Range Interpretation Comments Globulin (test code = Globulin) 4.3 2.7-4.2 [facility]2019-05-30 04:32:00 Test Item Value Reference Range Interpretation Comments B/C Ratio (test code = B/C Ratio) 17 1 6-25 [facility]2019-05-30 04:32:00 Test Item Value Reference Range Interpretation Comments A/G Ratio (test code = A/G Ratio) 0.7 1 0.7-1.6 [place] [id number] 04:32:00 Test Item Value Reference Range Interpretation Comments S Preg (test code = S Negative *NA*(08/17/18 Preg) 11:32 PM) [facility]IalcetdYAPROSNHBF8787-80-61 04:32:00 Test Item Value Reference Range Interpretation Comments Microcyte (test code = 2+ *ABN*(08/17/18 Microcyte) 11:32 PM) [facility] CampusGiwlxcjOQXOABYIXE2431-82-70 04:32:00 Test Item Value Reference Range Interpretation Comments Eosinophils # (test code 0.2 See_Comment [A utomated message] The = Eosinophils #) system ic h generated this result tra nsmitted reference range : <=0.5. The reference r alee was not used to int erpret this result as normal/abnormal . [facility] CampusLgwpquuXTBYYLWFMS5511-55-41 04:32:00 Test Item Value Reference Range Interpretation Comments Monocytes # (test code 0.6 See_Comment [Aut omated message] The = Monocytes #) system which generated this result tra nsmitted reference range : <=0.8. The reference r alee was not used to int erpret this result as normal/abnormal . [facility] CampusEkbppbjMQFNNMPDCX7192-41-24 04:32:00 Test Item Value Reference Range Interpretation Comments Basophils # (test code 0.1 See_Comment [Aut omated message] The = Basophils #) system which generated this result tra nsmitted reference range : <=0.2. The reference r alee was not used to int erpret this result as normal/abnormal . [facility] CampusTkrqbvvGPPFQZITLP8425-72-42 04:32:00 Test Item Value Reference Range Interpretation Comments Lymphocytes # (test code = Lymphocytes 3.2 1.0-5.5 #) [facility] CampusWmhzdytLKCTFDONIZ4848-27-82 04:32:00 Test Item Value Reference Range Interpretation Comments Segs (test code = Segs) 52.1 45.0-75.0 [facility] CampusLhefkknPOBFJWBOKO4628-87-44 04:32:00 Test Item Value Reference Range Interpretation Comments Lymphocytes (test code = Lymphocytes) 37.8 20.0-40.0 [facility] CampusJjzchfoMQXLEZYOAP3546-93-67 04:32:00 Test Item Value Reference Range Interpretation Comments Basophils (test code = 1.0 See_Comment [Aut omated message] The Basophils) system which ge nerated this result tra nsmitted reference range : <=1.0. The reference r alee was not used to int erpret this result as normal/abnormal . [facility] CampusEufylvwQTVGXIDSKS1004-01-21 04:32:00 Test Item Value Reference Range Interpretation Comments Eosinophils (test code = 2.1 See_Comment [A utomated message] The Eosinophils) system which ge nerated this result tra nsmitted reference range : <=4.0. The reference r alee was not used to int erpret this result as normal/abnormal . [facility] CampusRezmfgeHUBGRBRFJY8842-02-16 04:32:00 Test Item Value Reference Range Interpretation Comments Monocytes (test code = Monocytes) 7.0 2.0-12.0 [facility] CampusKzdkezpMLHZHQXBVE8730-40-99 04:32:00 Test Item Value Reference Range Interpretation Comments Neutrophils # (test code = Neutrophils 4.4 1.5-8.1 #) [facility] CampusNklqjutEUQDFRIEFA6476-88-60 04:32:00 Test Item Value Reference Range Interpretation Comments PTT (test code = PTT) 25.2 s 22.9-35.8 [facility] CampusQlrnhewJXXUMXYHZF3552-41-60 04:32:00 Test Item Value Reference Range Interpretation Comments INR (test code = INR) 0.95 1 0.85-1.17 [facility] CampusRgrrkssKNJAVFHVEW6964-63-91 04:32:00 Test Item Value Reference Range Interpretation Comments PT (test code = PT) 12.5 s 12.0-14.7 [facility] CampusUdatniaPEERTJXVSY0960-82-88 04:32:00 Test Item Value Reference Range Interpretation Comments Hgb (test code = Hgb) 9.3 12.0-16.0 [facility] CampusIugckwoWYAWXMPXDQ9518-78-03 04:32:00 Test Item Value Reference Range Interpretation Comments Hct (test code = Hct) 30.0 36.0-48.0 [facility] CampusKhorfhkBKVNZEUCEL5225-91-83 04:32:00 Test Item Value Reference Range Interpretation Comments MCH (test code = MCH) 21.8 pg 27.0-31.0 [facility] CampusIuwishzKXPRRIBQYA3696-20-90 04:32:00 Test Item Value Reference Range Interpretation Comments MCV (test code = MCV) 70.2 80.0-98.0 [facility] CampusKegiczzCHMGMNBUZO8152-10-10 04:32:00 Test Item Value Reference Range Interpretation Comments Platelet (test code = Platelet) 333 133-450 [facility] CampusBahxpqvIPZLQVMAOB3711-81-77 04:32:00 Test Item Value Reference Range Interpretation Comments RDW (test code = RDW) 17.9 11.5-14.5 [facility] CampusVogwnyhKHAEEHPLIT8041-52-81 04:32:00 Test Item Value Reference Range Interpretation Comments MCHC (test code = MCHC) 31.0 32.0-36.0 [facility] CampusTvopclzKNRAKEEFZH3226-60-61 04:32:00 Test Item Value Reference Range Interpretation Comments MPV (test code = MPV) 7.3 7.4-10.4 [facility] CampusXhjvzvwDWLIUWXKFV8607-29-90 04:32:00 Test Item Value Reference Range Interpretation Comments RBC (test code = RBC) 4.28 4.20-5.40 [facility]uuiubtWSMBTLDKFB3678-98-96 04:32:00 Test Item Value Reference Range Interpretation Comments WBC (test code = WBC) 8.5 3.7-10.4 [facility] AND [id number] 04:32:00 Test Item Value Reference Range Interpretation Comments UA WBC (test code = 1 See_Comment [Automa kenroy message] The UA WBC) system which ge nerated this result transmit kenroy reference range : <=5. The reference range was not used to interpr et this result as elton l/abnormal. [facility] AND [id number] 04:32:00 Test Item Value Reference Range Interpretation Comments UA RBC (test code = 3 See_Comment [Automa kenroy message] The UA RBC) system which ge nerated this result transmit kenroy reference range : <=2. The reference range was not used to interpr et this result as elton l/abnormal. [facility] [id number] 04:32:00 Test Item Value Reference Range Interpretation Comments UA Leuk Est (test Negative (08/17/18 11:32 code = UA Leuk Est) PM) [facility] AND [id number] 04:32:00 Test Item Value Reference Range Interpretation Comments UA Sq Epi (test code = UA Sq Occasional /LPF Epi) [facility] AND [id number] 04:32:00 Test Item Value Reference Range Interpretation Comments UA Mucus (test code = UA Mucus) Few /LPF [facility] AND [id number] 04:32:00 Test Item Value Reference Range Interpretation Comments UA Color (test code = Yellow *NA*(08/17/18 UA Color) 11:32 PM) [facility] AND [id number] 04:32:00 Test Item Value Reference Range Interpretation Comments UA Urobilinogen (test code = UA <=1.0 mg/dL 0.1-1.0 Urobilinogen) [facility] [id number] 04:32:00 Test Item Value Reference Range Interpretation Comments UA Nitrite (test code Negative (08/17/18 11:32 = UA Nitrite) PM) [facility] AND [id number] 04:32:00 Test Item Value Reference Range Interpretation Comments UA Bili (test code = Negative *NA*(08/17/18 UA Bili) 11:32 PM) [facility] [id number] 04:32:00 Test Item Value Reference Range Interpretation Comments UA Blood (test code = Negative (08/17/18 11:32 UA Blood) PM) [facility] [id number] 04:32:00 Test Item Value Reference Range Interpretation Comments UA Ketones (test code Negative *NA*(08/17/18 = UA Ketones) 11:32 PM) [facility] [id number] 04:32:00 Test Item Value Reference Range Interpretation Comments UA Protein (test code Negative (08/17/18 11:32 = UA Protein) PM) [facility] AND [id number] 04:32:00 Test Item Value Reference Range Interpretation Comments UA Glucose (test code Negative *NA*(08/17/18 = UA Glucose) 11:32 PM) [facility] [id number] 04:32:00 Test Item Value Reference Range Interpretation Comments UA Spec Grav (test code = UA Spec 1.018 1 Grav) [facility] AND [id number] 04:32:00 Test Item Value Reference Range Interpretation Comments UA pH (test code = UA pH) 5.0 1 5.0-8.0 [facility] AND [id number] 04:32:00 Test Item Value Reference Range Interpretation Comments UA Turbidity (test code = Clear (08/17/18 11:32 UA Turbidity) PM) [facility]annC[facility] [id number] 04:32:00 Test Item Value Reference Range Interpretation Comments BNP (test code = BNP) 65 [facility]annC[facility] [id number] 04:32:00 Test Item Value Reference Range Interpretation Comments Troponin-I (test code no gt See_Comment [Auto mated message] The = Troponin-I) system which g enerated this result transmit kenroy reference range : <=0.40. The reference r alee was not used to interpr et this result as elton l/abnormal. [facility]annCARD[facility]AC [id number] 04:32:00 Test Item Value Reference Range Interpretation Comments Total CK (test code = Total CK) 40 12-191 [facility]2019-05-30 04:32:00 Test Item Value Reference Range Interpretation Comments eGFR (test code = eGFR) 88 [facility]2019-05-30 04:32:00 Test Item Value Reference Range Interpretation Comments Potassium Lvl (test code = Potassium 3.8 3.5-5.1 Lvl) [facility]2019-05-30 04:32:00 Test Item Value Reference Range Interpretation Comments Chloride Lvl (test code = Chloride Lvl) 102 95-109 [facility]2019-05-30 04:32:00 Test Item Value Reference Range Interpretation Comments Calcium Lvl (test code = Calcium Lvl) 8.9 8.5-10.5 [facility]2019-05-30 04:32:00 Test Item Value Reference Range Interpretation Comments CO2 (test code = CO2) 28 24-32 [place] [id number] 04:32:00 Test Item Value Reference Range Interpretation Comments Total Protein (test code = Total 7.4 6.4-8.4 Protein) [facility]2019-05-30 04:32:00 Test Item Value Reference Range Interpretation Comments Albumin Lvl (test code = Albumin Lvl) 3.1 3.5-5.0 [facility]2019-05-30 04:32:00 Test Item Value Reference Range Interpretation Comments AST (test code = AST) 12 See_Comment [Auto mated message] The system which ge nerated this result transmit kenroy reference range : <=37. The reference range was not used to interpr et this result as elton l/abnormal. [facility]2019-05-30 04:32:00 Test Item Value Reference Range Interpretation Comments ALT (test code = ALT) 18 See_Comment [Auto mated message] The system which ge nerated this result transmit kenroy reference range : <=65. The reference range was not used to interpr et this result as elton l/abnormal. [place] [id number] 04:32:00 Test Item Value Reference Range Interpretation Comments Alk Phos (test code = Alk Phos) 101 39-136 [facility]2019-05-30 04:32:00 Test Item Value Reference Range Interpretation Comments Bili Total (test code = Bili Total) 0.2 0.2-1.3 [facility]2019-05-30 04:32:00 Test Item Value Reference Range Interpretation Comments Glucose Lvl (test code = Glucose Lvl) 96 70-99 [facility]2019-05-30 04:32:00 Test Item Value Reference Range Interpretation Comments BUN (test code = BUN) 14 7-22 [facility]2019-05-30 04:32:00 Test Item Value Reference Range Interpretation Comments Creatinine Lvl (test code = Creatinine 0.84 0.50-1.40 Lvl) [facility]2019-05-30 04:32:00 Test Item Value Reference Range Interpretation Comments Sodium Lvl (test code = Sodium Lvl) 134 135-145 [facility]2019-05-30 04:32:00 Test Item Value Reference Range Interpretation Comments AGAP (test code = AGAP) 7.8 10.0-20.0 [facility]2019-05-30 04:32:00 Test Item Value Reference Range Interpretation Comments Globulin (test code = Globulin) 4.3 2.7-4.2 [facility]2019-05-30 04:32:00 Test Item Value Reference Range Interpretation Comments B/C Ratio (test code = B/C Ratio) 17 1 6-25 [facility]2019-05-30 04:32:00 Test Item Value Reference Range Interpretation Comments A/G Ratio (test code = A/G Ratio) 0.7 1 0.7-1.6 [place] [id number] 04:32:00 Test Item Value Reference Range Interpretation Comments S Preg (test code = S Negative *NA*(08/17/18 Preg) 11:32 PM) [facility] CampusQkbsfhkVPFNIDTNQF2068-57-32 04:32:00 Test Item Value Reference Range Interpretation Comments Microcyte (test code = 2+ *ABN*(08/17/18 Microcyte) 11:32 PM) [facility] CampusZptwkxnFXZFBNQQSW3731-87-08 04:32:00 Test Item Value Reference Range Interpretation Comments Eosinophils # (test code 0.2 See_Comment [A utomated message] The = Eosinophils #) system whic h generated this result tra nsmitted reference range : <=0.5. The reference r alee was not used to int erpret this result as normal/abnormal . [facility] CampusHzulsdeHORURTHRMS8774-64-05 04:32:00 Test Item Value Reference Range Interpretation Comments Monocytes # (test code 0.6 See_Comment [Aut omated message] The = Monocytes #) system which generated this result tra nsmitted reference range : <=0.8. The reference r alee was not used to int erpret this result as normal/abnormal . [facility] CampusGzhxmhsLTWHOOERLL8609-24-87 04:32:00 Test Item Value Reference Range Interpretation Comments Basophils # (test code 0.1 See_Comment [Aut omated message] The = Basophils #) system which generated this result tra nsmitted reference range : <=0.2. The reference r alee was not used to int erpret this result as normal/abnormal . [facility] CampusWwicardLVYMCWODUN1905-74-21 04:32:00 Test Item Value Reference Range Interpretation Comments Lymphocytes # (test code = Lymphocytes 3.2 1.0-5.5 #) [facility] CampusFkmgltcSKQOOYNDUF3364-63-10 04:32:00 Test Item Value Reference Range Interpretation Comments Segs (test code = Segs) 52.1 45.0-75.0 [facility] CampusDfzpelvVAPNSGAXYB5427-20-65 04:32:00 Test Item Value Reference Range Interpretation Comments Lymphocytes (test code = Lymphocytes) 37.8 20.0-40.0 [facility] CampusCsmzpksKDBFIEQFKT2395-62-22 04:32:00 Test Item Value Reference Range Interpretation Comments Basophils (test code = 1.0 See_Comment [Aut omated message] The Basophils) system which ge nerated this result tra nsmitted reference range : <=1.0. The reference r alee was not used to int erpret this result as normal/abnormal . [facility] [id number] 04:32:00 Test Item Value Reference Range Interpretation Comments Eosinophils (test code = 2.1 See_Comment [A utomated message] The Eosinophils) system which ge nerated this result tra nsmitted reference range : <=4.0. The reference r alee was not used to int erpret this result as normal/abnormal . [facility] CampusQkwiqxuCLVHBYAULF0217-89-81 04:32:00 Test Item Value Reference Range Interpretation Comments Monocytes (test code = Monocytes) 7.0 2.0-12.0 [facility] CampusXykognbVYAYGVYNCO1031-89-79 04:32:00 Test Item Value Reference Range Interpretation Comments Neutrophils # (test code = Neutrophils 4.4 1.5-8.1 #) [facility] CampusLznvbuqZCPNYFXZBX4992-53-32 04:32:00 Test Item Value Reference Range Interpretation Comments PTT (test code = PTT) 25.2 s 22.9-35.8 [facility] CampusLtbiwqiJHDDBJVJRW8024-51-49 04:32:00 Test Item Value Reference Range Interpretation Comments INR (test code = INR) 0.95 1 0.85-1.17 [facility] CampusZayccunJNFQGORMDF0725-15-10 04:32:00 Test Item Value Reference Range Interpretation Comments PT (test code = PT) 12.5 s 12.0-14.7 [facility] CampusYbsfyapNPWYSEWQIQ8645-50-96 04:32:00 Test Item Value Reference Range Interpretation Comments Hgb (test code = Hgb) 9.3 12.0-16.0 [facility] [id number] 04:32:00 Test Item Value Reference Range Interpretation Comments Hct (test code = Hct) 30.0 36.0-48.0 [facility] CampusZrkorcjACTJQWSUVD8209-51-09 04:32:00 Test Item Value Reference Range Interpretation Comments MCH (test code = MCH) 21.8 pg 27.0-31.0 [facility] CampusOaunrbeIZMFDNFIZJ6880-57-25 04:32:00 Test Item Value Reference Range Interpretation Comments MCV (test code = MCV) 70.2 80.0-98.0 [facility] CampusNoiztccHPULCJMYFT4864-36-91 04:32:00 Test Item Value Reference Range Interpretation Comments Platelet (test code = Platelet) 333 133-450 [facility] CampusAzqktrlIRPYLWNKMG2404-43-02 04:32:00 Test Item Value Reference Range Interpretation Comments RDW (test code = RDW) 17.9 11.5-14.5 [facility] CampusQocvyueJDBBGRLCYY9631-31-01 04:32:00 Test Item Value Reference Range Interpretation Comments MCHC (test code = MCHC) 31.0 32.0-36.0 [facility] CampusPnblbhaLZIKOJSZIO3243-59-92 04:32:00 Test Item Value Reference Range Interpretation Comments MPV (test code = MPV) 7.3 7.4-10.4 [facility] CampusVtgiedeOSBEPGYIXO2947-92-23 04:32:00 Test Item Value Reference Range Interpretation Comments RBC (test code = RBC) 4.28 4.20-5.40 [facility] CampusVofdxytPMKHNGMZXK1320-30-16 04:32:00 Test Item Value Reference Range Interpretation Comments WBC (test code = WBC) 8.5 3.7-10.4 [facility] AND [id number] 04:32:00 Test Item Value Reference Range Interpretation Comments UA WBC (test code = 1 See_Comment [Automa kenroy message] The UA WBC) system which ge nerated this result transmit kenroy reference range : <=5. The reference range was not used to interpr et this result as elton l/abnormal. [facility] AND [id number] 04:32:00 Test Item Value Reference Range Interpretation Comments UA RBC (test code = 3 See_Comment [Automa kenroy message] The UA RBC) system which ge nerated this result transmit kenroy reference range : <=2. The reference range was not used to interpr et this result as elton l/abnormal. [facility] AND [id number] 04:32:00 Test Item Value Reference Range Interpretation Comments UA Leuk Est (test Negative (08/17/18 11:32 code = UA Leuk Est) PM) [facility] AND [id number] 04:32:00 Test Item Value Reference Range Interpretation Comments UA Sq Epi (test code = UA Sq Occasional /LPF Epi) [facility] AND [id number] 04:32:00 Test Item Value Reference Range Interpretation Comments UA Mucus (test code = UA Mucus) Few /LPF [facility] AND [id number] 04:32:00 Test Item Value Reference Range Interpretation Comments UA Color (test code = Yellow *NA*(08/17/18 UA Color) 11:32 PM) [facility] AND [id number] 04:32:00 Test Item Value Reference Range Interpretation Comments UA Urobilinogen (test code = UA <=1.0 mg/dL 0.1-1.0 Urobilinogen) [facility] AND [id number] 04:32:00 Test Item Value Reference Range Interpretation Comments UA Nitrite (test code Negative (08/17/18 11:32 = UA Nitrite) PM) [facility] AND [id number] 04:32:00 Test Item Value Reference Range Interpretation Comments UA Bili (test code = Negative *NA*(08/17/18 UA Bili) 11:32 PM) [facility] AND [id number] 04:32:00 Test Item Value Reference Range Interpretation Comments UA Blood (test code = Negative (08/17/18 11:32 UA Blood) PM) [facility] AND [id number] 04:32:00 Test Item Value Reference Range Interpretation Comments UA Ketones (test code Negative *NA*(08/17/18 = UA Ketones) 11:32 PM) [facility] AND [id number] 04:32:00 Test Item Value Reference Range Interpretation Comments UA Protein (test code Negative (08/17/18 11:32 = UA Protein) PM) [facility] AND [id number] 04:32:00 Test Item Value Reference Range Interpretation Comments UA Glucose (test code Negative *NA*(08/17/18 = UA Glucose) 11:32 PM) [facility] AND [id number] 04:32:00 Test Item Value Reference Range Interpretation Comments UA Spec Grav (test code = UA Spec 1.018 1 Grav) [facility] AND [id number] 04:32:00 Test Item Value Reference Range Interpretation Comments UA pH (test code = UA pH) 5.0 1 5.0-8.0 [facility] AND [id number] 04:32:00 Test Item Value Reference Range Interpretation Comments UA Turbidity (test code = Clear (08/17/18 11:32 UA Turbidity) PM) [facility] [id number] 04:32:00 Test Item Value Reference Range Interpretation Comments BNP (test code = BNP) 65 [facility] [id number] 04:32:00 Test Item Value Reference Range Interpretation Comments Troponin-I (test code no gt See_Comment [Auto mated message] The = Troponin-I) system which g enerated this result transmit kenroy reference range : <=0.40. The reference r alee was not used to interpr et this result as elton l/abnormal. [facility] [id number] 04:32:00 Test Item Value Reference Range Interpretation Comments Total CK (test code = Total CK) 40 12-191 [facility]2019-05-30 04:32:00 Test Item Value Reference Range Interpretation Comments eGFR (test code = eGFR) 88 [facility]2019-05-30 04:32:00 Test Item Value Reference Range Interpretation Comments Potassium Lvl (test code = Potassium 3.8 3.5-5.1 Lvl) [facility]2019-05-30 04:32:00 Test Item Value Reference Range Interpretation Comments Chloride Lvl (test code = Chloride Lvl) 102 95-109 [facility] [id number] 04:32:00 Test Item Value Reference Range Interpretation Comments Calcium Lvl (test code = Calcium Lvl) 8.9 8.5-10.5 [facility]2019-05-30 04:32:00 Test Item Value Reference Range Interpretation Comments CO2 (test code = CO2) 28 24-32 [facility] [id number] 04:32:00 Test Item Value Reference Range Interpretation Comments Total Protein (test code = Total 7.4 6.4-8.4 Protein) [facility] [id number] 04:32:00 Test Item Value Reference Range Interpretation Comments Albumin Lvl (test code = Albumin Lvl) 3.1 3.5-5.0 [facility]2019-05-30 04:32:00 Test Item Value Reference Range Interpretation Comments AST (test code = AST) 12 See_Comment [Auto mated message] The system which ge nerated this result transmit kenroy reference range : <=37. The reference range was not used to interpr et this result as elton l/abnormal. [facility] [id number] 04:32:00 Test Item Value Reference Range Interpretation Comments ALT (test code = ALT) 18 See_Comment [Auto mated message] The system which ge nerated this result transmit kenroy reference range : <=65. The reference range was not used to interpr et this result as elton l/abnormal. [facility] [id number] 04:32:00 Test Item Value Reference Range Interpretation Comments Alk Phos (test code = Alk Phos) 101 39-136 [facility]2019-05-30 04:32:00 Test Item Value Reference Range Interpretation Comments Bili Total (test code = Bili Total) 0.2 0.2-1.3 [facility]2019-05-30 04:32:00 Test Item Value Reference Range Interpretation Comments Glucose Lvl (test code = Glucose Lvl) 96 70-99 [facility]2019-05-30 04:32:00 Test Item Value Reference Range Interpretation Comments BUN (test code = BUN) 14 7-22 [facility]2019-05-30 04:32:00 Test Item Value Reference Range Interpretation Comments Creatinine Lvl (test code = Creatinine 0.84 0.50-1.40 Lvl) [facility]2019-05-30 04:32:00 Test Item Value Reference Range Interpretation Comments Sodium Lvl (test code = Sodium Lvl) 134 135-145 [facility]2019-05-30 04:32:00 Test Item Value Reference Range Interpretation Comments AGAP (test code = AGAP) 7.8 10.0-20.0 [facility]2019-05-30 04:32:00 Test Item Value Reference Range Interpretation Comments Globulin (test code = Globulin) 4.3 2.7-4.2 [facility]2019-05-30 04:32:00 Test Item Value Reference Range Interpretation Comments B/C Ratio (test code = B/C Ratio) 17 1 6-25 [facility]2019-05-30 04:32:00 Test Item Value Reference Range Interpretation Comments A/G Ratio (test code = A/G Ratio) 0.7 1 0.7-1.6 [place] [id number] 04:32:00 Test Item Value Reference Range Interpretation Comments S Preg (test code = S Negative *NA*(08/17/18 Preg) 11:32 PM) [facility] CampusTyihkkmQGGXETUHSS1891-37-59 04:32:00 Test Item Value Reference Range Interpretation Comments Microcyte (test code = 2+ *ABN*(08/17/18 Microcyte) 11:32 PM) [facility] CampusCtgteogVNLIPYAKQZ0366-97-42 04:32:00 Test Item Value Reference Range Interpretation Comments Eosinophils # (test code 0.2 See_Comment [A utomated message] The = Eosinophils #) system [facility] h generated this result tra nsmitted reference range : <=0.5. The reference r alee was not used to int erpret this result as normal/abnormal . [facility] [id number] 04:32:00 Test Item Value Reference Range Interpretation Comments Monocytes # (test code 0.6 See_Comment [Aut omated message] The = Monocytes #) system which generated this result tra nsmitted reference range : <=0.8. The reference r alee was not used to int erpret this result as normal/abnormal . [facility] CampusRbluhohIDVNDMJMBR2325-64-96 04:32:00 Test Item Value Reference Range Interpretation Comments Basophils # (test code 0.1 See_Comment [Aut omated message] The = Basophils #) system which generated this result tra nsmitted reference range : <=0.2. The reference r alee was not used to int erpret this result as normal/abnormal . [facility] CampusDrevmupJBKJVFPVMM3943-23-67 04:32:00 Test Item Value Reference Range Interpretation Comments Lymphocytes # (test code = Lymphocytes 3.2 1.0-5.5 #) [facility] CampusXbzqrjmTAHKFBDKIF7350-78-11 04:32:00 Test Item Value Reference Range Interpretation Comments Segs (test code = Segs) 52.1 45.0-75.0 [facility] CampusLgzfbseCZUOJVJPFW4586-66-05 04:32:00 Test Item Value Reference Range Interpretation Comments Lymphocytes (test code = Lymphocytes) 37.8 20.0-40.0 [facility] CampusOhjxucfYPLBDLKAJT0419-10-77 04:32:00 Test Item Value Reference Range Interpretation Comments Basophils (test code = 1.0 See_Comment [Aut omated message] The Basophils) system which ge nerated this result tra nsmitted reference range : <=1.0. The reference r alee was not used to int erpret this result as normal/abnormal . [facility] CampusSzklpkwKNNQCIGLZV9281-62-37 04:32:00 Test Item Value Reference Range Interpretation Comments Eosinophils (test code = 2.1 See_Comment [A utomated message] The Eosinophils) system which ge nerated this result tra nsmitted reference range : <=4.0. The reference r alee was not used to int erpret this result as normal/abnormal . [facility] CampusOczgfpcNCHAPEUCBJ0140-53-47 04:32:00 Test Item Value Reference Range Interpretation Comments Monocytes (test code = Monocytes) 7.0 2.0-12.0 [facility] CampusIityeclVFDILFRDRZ4521-29-89 04:32:00 Test Item Value Reference Range Interpretation Comments Neutrophils # (test code = Neutrophils 4.4 1.5-8.1 #) [facility] CampusFwyzhueFMYUGRFALA3314-81-23 04:32:00 Test Item Value Reference Range Interpretation Comments PTT (test code = PTT) 25.2 s 22.9-35.8 [facility] CampusLezgorgMXZNNZVYEN5821-22-30 04:32:00 Test Item Value Reference Range Interpretation Comments INR (test code = INR) 0.95 1 0.85-1.17 [facility] CampusXlbprqyTRGWCYZENH3399-04-66 04:32:00 Test Item Value Reference Range Interpretation Comments PT (test code = PT) 12.5 s 12.0-14.7 [facility] CampusTzuxtqdITQPPJVEDI5003-56-76 04:32:00 Test Item Value Reference Range Interpretation Comments Hgb (test code = Hgb) 9.3 12.0-16.0 [facility] CampusMctdsmwUJZZZIRDVF3386-11-28 04:32:00 Test Item Value Reference Range Interpretation Comments Hct (test code = Hct) 30.0 36.0-48.0 [facility] CampusLnoftfyMVYHPTHCTY1105-70-59 04:32:00 Test Item Value Reference Range Interpretation Comments MCH (test code = MCH) 21.8 pg 27.0-31.0 [facility] CampusBjdltfzBJLUBMIWJM0278-80-92 04:32:00 Test Item Value Reference Range Interpretation Comments MCV (test code = MCV) 70.2 80.0-98.0 [facility] CampusDymkkdzTEATWVEDOM6011-35-85 04:32:00 Test Item Value Reference Range Interpretation Comments Platelet (test code = Platelet) 333 133-450 [facility] CampusBgiviusDWUSGBERCP3733-30-41 04:32:00 Test Item Value Reference Range Interpretation Comments RDW (test code = RDW) 17.9 11.5-14.5 [facility] CampusTxtmetjATKCDRMLJP0504-70-64 04:32:00 Test Item Value Reference Range Interpretation Comments MCHC (test code = MCHC) 31.0 32.0-36.0 [facility] CampusQkicaztFVUMRRAAPT1700-85-21 04:32:00 Test Item Value Reference Range Interpretation Comments MPV (test code = MPV) 7.3 7.4-10.4 [facility] CampusPhmaszmIZOUGLZGCL2391-96-43 04:32:00 Test Item Value Reference Range Interpretation Comments RBC (test code = RBC) 4.28 4.20-5.40 [facility] CjyjtqvCJBEVLIMNE2382-11-39 04:32:00 Test Item Value Reference Range Interpretation Comments WBC (test code = WBC) 8.5 3.7-10.4 [facility] AND [id number] 04:32:00 Test Item Value Reference Range Interpretation Comments UA WBC (test code = 1 See_Comment [Automa kenroy message] The UA WBC) system which ge nerated this result transmit kenroy reference range : <=5. The reference range was not used to interpr et this result as elton l/abnormal. [facility] AND [id number] 04:32:00 Test Item Value Reference Range Interpretation Comments UA RBC (test code = 3 See_Comment [Automa kenroy message] The UA RBC) system which ge nerated this result transmit kenroy reference range : <=2. The reference range was not used to interpr et this result as leton l/abnormal. [facility] AND [id number] 04:32:00 Test Item Value Reference Range Interpretation Comments UA Leuk Est (test Negative (08/17/18 11:32 code = UA Leuk Est) PM) [facility] AND [id number] 04:32:00 Test Item Value Reference Range Interpretation Comments UA Sq Epi (test code = UA Sq Occasional /LPF Epi) [facility] AND [id number] 04:32:00 Test Item Value Reference Range Interpretation Comments UA Mucus (test code = UA Mucus) Few /LPF [facility] AND [id number] 04:32:00 Test Item Value Reference Range Interpretation Comments UA Color (test code = Yellow *NA*(08/17/18 UA Color) 11:32 PM) [facility] AND [id number] 04:32:00 Test Item Value Reference Range Interpretation Comments UA Urobilinogen (test code = UA <=1.0 mg/dL 0.1-1.0 Urobilinogen) [facility] AND [id number] 04:32:00 Test Item Value Reference Range Interpretation Comments UA Nitrite (test code Negative (08/17/18 11:32 = UA Nitrite) PM) [facility] AND [id number] 04:32:00 Test Item Value Reference Range Interpretation Comments UA Bili (test code = Negative *NA*(08/17/18 UA Bili) 11:32 PM) [facility] AND [id number] 04:32:00 Test Item Value Reference Range Interpretation Comments UA Blood (test code = Negative (08/17/18 11:32 UA Blood) PM) [facility] AND [id number] 04:32:00 Test Item Value Reference Range Interpretation Comments UA Ketones (test code Negative *NA*(08/17/18 = UA Ketones) 11:32 PM) [facility] AND [id number] 04:32:00 Test Item Value Reference Range Interpretation Comments UA Protein (test code Negative (08/17/18 11:32 = UA Protein) PM) [facility] AND [id number] 04:32:00 Test Item Value Reference Range Interpretation Comments UA Glucose (test code Negative *NA*(08/17/18 = UA Glucose) 11:32 PM) [facility] AND [id number] 04:32:00 Test Item Value Reference Range Interpretation Comments UA Spec Grav (test code = UA Spec 1.018 1 Grav) [facility] AND [id number] 04:32:00 Test Item Value Reference Range Interpretation Comments UA pH (test code = UA pH) 5.0 1 5.0-8.0 [facility] AND [id number] 04:32:00 Test Item Value Reference Range Interpretation Comments UA Turbidity (test code = Clear (08/17/18 11:32 UA Turbidity) PM) [facility] CenterannCARDIAC [id number] 04:32:00 Test Item Value Reference Range Interpretation Comments BNP (test code = BNP) 65 [facility] [id number] 04:32:00 Test Item Value Reference Range Interpretation Comments Troponin-I (test code no gt See_Comment [Auto mated message] The = Troponin-I) system which g enerated this result transmit kenroy reference range : <=0.40. The reference r alee was not used to interpr et this result as elton l/abnormal. [facility] CenterAriistoCASE[facility] [id number] 04:32:00 Test Item Value Reference Range Interpretation Comments Total CK (test code = Total CK) 40 12-191 [facility]2019-05-30 04:32:00 Test Item Value Reference Range Interpretation Comments eGFR (test code = eGFR) 88 [facility]2019-05-30 04:32:00 Test Item Value Reference Range Interpretation Comments Potassium Lvl (test code = Potassium 3.8 3.5-5.1 Lvl) [facility]2019-05-30 04:32:00 Test Item Value Reference Range Interpretation Comments Chloride Lvl (test code = Chloride Lvl) 102 95-109 [facility] CenterSwarm64 [id number] 04:32:00 Test Item Value Reference Range Interpretation Comments Calcium Lvl (test code = Calcium Lvl) 8.9 8.5-10.5 [facility] CenterSw[facility] [id number] 04:32:00 Test Item Value Reference Range Interpretation Comments CO2 (test code = CO2) 28 24-32 [facility] CenterAriistoDCH REGIONAL MEDICAL CENTERJKARBJY4488-53-07 10:22:00 Test Item Value Reference Range Interpretation Comments Troponin-I (test code no gt See_Comment [Auto mated message] The = Troponin-I) system which g enerated this result transmit kenroy reference range : <=0.40. The reference r alee was not used to interpr et this result as elton l/abnormal. [facility] CenterCrowdEngineering [id number] 10:22:00 Test Item Value Reference Range Interpretation Comments Troponin-I (test code no gt See_Comment [Auto mated message] The = Troponin-I) system which g enerated this result transmit kenroy reference range : <=0.40. The reference r alee was not used to interpr et this result as elton l/abnormal. [facility] CenterAriistoCASEY [facility] [id number] 10:22:00 Test Item Value Reference Range Interpretation Comments Troponin-I (test code no gt See_Comment [Auto mated message] The = Troponin-I) system which g enerated this result transmit kenroy reference range : <=0.40. The reference r alee was not used to interpr et this result as elton l/abnormal. [facility] CenterCARDICOREWE[facility] [id number] 10:22:00 Test Item Value Reference Range Interpretation Comments Troponin-I (test code no gt See_Comment [Auto mated message] The = Troponin-I) system which g enerated this result transmit kenroy reference range : <=0.40. The reference r alee was not used to interpr et this result as elton l/abnormal. [facility] CampusFmqxazyKQSFDMKXWZ3007-34-85 07:58:00 Test Item Value Reference Range Interpretation Comments Monocytes (test code = Monocytes) 6.9 2.0-12.0 [facility] CampusDxcdinsFNYKPCTAUS9330-05-07 07:58:00 Test Item Value Reference Range Interpretation Comments Segs (test code = Segs) 51.6 45.0-75.0 [facility] CampusGljcfdjMCFWZLTOUA9417-57-75 07:58:00 Test Item Value Reference Range Interpretation Comments Lymphocytes (test code = Lymphocytes) 39.0 20.0-40.0 [facility] CampusHwlsrpdYEBVUAEQIA5592-63-70 07:58:00 Test Item Value Reference Range Interpretation Comments Eosinophils # (test code 0.2 See_Comment [A utomated message] The = Eosinophils #) system whic h generated this result tra nsmitted reference range : <=0.5. The reference r alee was not used to int erpret this result as normal/abnormal . [facility] CampusVvxezfqGZMKLUONOY1747-89-14 07:58:00 Test Item Value Reference Range Interpretation Comments Microcyte (test code = 2+ *ABN*(08/12/18 Microcyte) 2:58 AM) [facility] CampusHlkrkanRSGKIDRBBM6165-26-93 07:58:00 Test Item Value Reference Range Interpretation Comments Neutrophils # (test code = Neutrophils 4.7 1.5-8.1 #) [facility] CampusIjwwkfmPAUZKYOKDM8994-37-38 07:58:00 Test Item Value Reference Range Interpretation Comments Monocytes # (test code 0.6 See_Comment [Aut omated message] The = Monocytes #) system which generated this result tra nsmitted reference range : <=0.8. The reference r alee was not used to int erpret this result as normal/abnormal . [facility] CampusBmxmipaKAHTQWPBAQ6333-87-96 07:58:00 Test Item Value Reference Range Interpretation Comments Lymphocytes # (test code = Lymphocytes 3.5 1.0-5.5 #) [facility] CampusYyvermbVLHZAWKCVY3445-70-90 07:58:00 Test Item Value Reference Range Interpretation Comments Basophils (test code = 0.2 See_Comment [Aut omated message] The Basophils) system which ge nerated this result tra nsmitted reference range : <=1.0. The reference r alee was not used to int erpret this result as normal/abnormal . [facility] CampusZddbszjIMDYOPSKOB9529-45-87 07:58:00 Test Item Value Reference Range Interpretation Comments Eosinophils (test code = 2.3 See_Comment [A utomated message] The Eosinophils) system which ge nerated this result tra nsmitted reference range : <=4.0. The reference r alee was not used to int erpret this result as normal/abnormal . [facility] CampusWwtpgyhHCWPOWILMJ1065-52-20 07:58:00 Test Item Value Reference Range Interpretation Comments MCV (test code = MCV) 69.7 80.0-98.0 [facility] CampusDcpkedpLQFNUSPJTO0471-10-19 07:58:00 Test Item Value Reference Range Interpretation Comments MCH (test code = MCH) 22.2 pg 27.0-31.0 [facility] CampusOtrvrylCBCABWSJYG3870-01-10 07:58:00 Test Item Value Reference Range Interpretation Comments Platelet (test code = Platelet) 377 133-450 [facility] CampusHrecufhTNCJHSBTXZ8252-06-28 07:58:00 Test Item Value Reference Range Interpretation Comments MCHC (test code = MCHC) 31.9 32.0-36.0 [facility] CampusIzzbzegJYGRBZYZVZ3705-19-96 07:58:00 Test Item Value Reference Range Interpretation Comments RDW (test code = RDW) 17.4 11.5-14.5 [facility] CampusFeflhxqSNQKNMFXJQ0914-31-26 07:58:00 Test Item Value Reference Range Interpretation Comments MPV (test code = MPV) 7.4 7.4-10.4 [facility] CampusIcjxtnmMQRZRVDMJM1712-36-46 07:58:00 Test Item Value Reference Range Interpretation Comments RBC (test code = RBC) 4.56 4.20-5.40 [place] [id number] 07:58:00 Test Item Value Reference Range Interpretation Comments Hgb (test code = Hgb) 10.1 12.0-16.0 [facility] CampusUdpvltpAMADZRRONK4902-11-85 07:58:00 Test Item Value Reference Range Interpretation Comments Hct (test code = Hct) 31.7 36.0-48.0 [facility] CampusAnhhyxeZVMSIVWKPO1112-74-01 07:58:00 Test Item Value Reference Range Interpretation Comments WBC (test code = WBC) 9.1 3.7-10.4 [facility] CampusLbykjkvNINKKPLJVO8395-95-02 07:58:00 Test Item Value Reference Range Interpretation Comments PTT (test code = PTT) 21.4 s 22.9-35.8 [facility] CampusOmyegarGYGBXPXOZM7789-73-84 07:58:00 Test Item Value Reference Range Interpretation Comments PT (test code = PT) 12.9 s 12.0-14.7 [facility] CampusZfkjiibWXKDCWVGGM2119-91-81 07:58:00 Test Item Value Reference Range Interpretation Comments INR (test code = INR) 0.99 1 0.85-1.17 [facility] CampusBoeewivAJXFABBEBE8649-87-18 07:58:00 Test Item Value Reference Range Interpretation Comments Monocytes (test code = Monocytes) 6.9 2.0-12.0 [facility] CampusJdkalxaJRMMEDTFWR6731-67-24 07:58:00 Test Item Value Reference Range Interpretation Comments Segs (test code = Segs) 51.6 45.0-75.0 [facility] CampusAomxysiAKBVOYBEEK7162-85-72 07:58:00 Test Item Value Reference Range Interpretation Comments Lymphocytes (test code = Lymphocytes) 39.0 20.0-40.0 [facility] CampusZdrzgbzTJGDIXMAMO2581-02-88 07:58:00 Test Item Value Reference Range Interpretation Comments Eosinophils # (test code 0.2 See_Comment [A utomated message] The = Eosinophils #) system ic h generated this result tra nsmitted reference range : <=0.5. The reference r alee was not used to int erpret this result as normal/abnormal . [facility] CampusSdyczvyZBBLXYMRKM5675-14-31 07:58:00 Test Item Value Reference Range Interpretation Comments Microcyte (test code = 2+ *ABN*(08/12/18 Microcyte) 2:58 AM) [facility] CampusXnhqypeHZHFCUMWMO6743-14-56 07:58:00 Test Item Value Reference Range Interpretation Comments Neutrophils # (test code = Neutrophils 4.7 1.5-8.1 #) [facility] CampusZgowiupMPFGEPJDFY9779-08-90 07:58:00 Test Item Value Reference Range Interpretation Comments Monocytes # (test code 0.6 See_Comment [Aut omated message] The = Monocytes #) system which generated this result tra nsmitted reference range : <=0.8. The reference r alee was not used to int erpret this result as normal/abnormal . [facility] CampusCozregzYTPPRHNJOM7310-25-32 07:58:00 Test Item Value Reference Range Interpretation Comments Lymphocytes # (test code = Lymphocytes 3.5 1.0-5.5 #) [facility] CampusBpenbemNIQYWOICMH7098-45-35 07:58:00 Test Item Value Reference Range Interpretation Comments Basophils (test code = 0.2 See_Comment [Aut omated message] The Basophils) system which ge nerated this result tra nsmitted reference range : <=1.0. The reference r alee was not used to int erpret this result as normal/abnormal . [facility] CampusYcgappaXLLYPAARCS3536-00-44 07:58:00 Test Item Value Reference Range Interpretation Comments Eosinophils (test code = 2.3 See_Comment [A utomated message] The Eosinophils) system which ge nerated this result tra nsmitted reference range : <=4.0. The reference r alee was not used to int erpret this result as normal/abnormal . [facility] CampusPufgnujNSSLCCNTFF4197-72-54 07:58:00 Test Item Value Reference Range Interpretation Comments MCV (test code = MCV) 69.7 80.0-98.0 [facility] CampusSshphsgPLQYKTIWJH9640-42-59 07:58:00 Test Item Value Reference Range Interpretation Comments MCH (test code = MCH) 22.2 pg 27.0-31.0 [facility] CampusUxhdqjjYETDRAJOUV3672-90-97 07:58:00 Test Item Value Reference Range Interpretation Comments Platelet (test code = Platelet) 377 133-450 [facility]YaukvyvXNQAKEDWHY7864-49-34 07:58:00 Test Item Value Reference Range Interpretation Comments MCHC (test code = MCHC) 31.9 32.0-36.0 [facility] CampusIuawkwqFKKRLIYEME8263-16-71 07:58:00 Test Item Value Reference Range Interpretation Comments RDW (test code = RDW) 17.4 11.5-14.5 [facility] CampusNrlhddlWYUWKXIPZA6360-04-81 07:58:00 Test Item Value Reference Range Interpretation Comments MPV (test code = MPV) 7.4 7.4-10.4 [facility] CampusGflvzsmVXIVXLUEYD8397-12-77 07:58:00 Test Item Value Reference Range Interpretation Comments RBC (test code = RBC) 4.56 4.20-5.40 [facility] CampusDaukigsBXBCOVZKYM3782-18-23 07:58:00 Test Item Value Reference Range Interpretation Comments Hgb (test code = Hgb) 10.1 12.0-16.0 [facility] CampusBfdykilLEQFNGVGLL8982-44-67 07:58:00 Test Item Value Reference Range Interpretation Comments Hct (test code = Hct) 31.7 36.0-48.0 [facility] CampusExvnukoDSIEMDGSIL4319-16-48 07:58:00 Test Item Value Reference Range Interpretation Comments WBC (test code = WBC) 9.1 3.7-10.4 [facility] CampusOgnilpqORGDYBHUUQ0510-30-12 07:58:00 Test Item Value Reference Range Interpretation Comments PTT (test code = PTT) 21.4 s 22.9-35.8 [facility] CampusTsougcrWPBIMAYTTV9078-46-10 07:58:00 Test Item Value Reference Range Interpretation Comments PT (test code = PT) 12.9 s 12.0-14.7 [facility] CampusEzotbiqQRPDQMBMBD5319-49-07 07:58:00 Test Item Value Reference Range Interpretation Comments INR (test code = INR) 0.99 1 0.85-1.17 [facility] CampusBoikfjrDBDVXFXMEV0358-07-15 07:58:00 Test Item Value Reference Range Interpretation Comments Monocytes (test code = Monocytes) 6.9 2.0-12.0 [facility] CampusKdgczuqBYXIFDMZBH4862-48-47 07:58:00 Test Item Value Reference Range Interpretation Comments Segs (test code = Segs) 51.6 45.0-75.0 [facility] CampusAmtwdesBBLWKQFHRN6198-76-21 07:58:00 Test Item Value Reference Range Interpretation Comments Lymphocytes (test code = Lymphocytes) 39.0 20.0-40.0 [facility] CampusNrfdkxhISBTPEQFMT4394-84-99 07:58:00 Test Item Value Reference Range Interpretation Comments Eosinophils # (test code 0.2 See_Comment [A utomated message] The = Eosinophils #) system [facility] generated this result tra nsmitted reference range : <=0.5. The reference r alee was not used to int erpret this result as normal/abnormal . [facility] CampusRvvsrwsLYRZFGHIVM8769-44-01 07:58:00 Test Item Value Reference Range Interpretation Comments Microcyte (test code = 2+ *ABN*(08/12/18 Microcyte) 2:58 AM) [facility] CampusVcexojtGEVZHAUNOP9132-62-04 07:58:00 Test Item Value Reference Range Interpretation Comments Neutrophils # (test code = Neutrophils 4.7 1.5-8.1 #) [facility] CampusRlwxxruDIVWKUOVFJ2634-74-97 07:58:00 Test Item Value Reference Range Interpretation Comments Monocytes # (test code 0.6 See_Comment [Aut omated message] The = Monocytes #) system which generated this result tra nsmitted reference range : <=0.8. The reference r alee was not used to int erpret this result as normal/abnormal . [facility] CampusTkrcdtyXJSQUCNBZX2689-20-72 07:58:00 Test Item Value Reference Range Interpretation Comments Lymphocytes # (test code = Lymphocytes 3.5 1.0-5.5 #) [facility] CampusKxkxptoCSSBQZFWFL7020-70-59 07:58:00 Test Item Value Reference Range Interpretation Comments Basophils (test code = 0.2 See_Comment [Aut omated message] The Basophils) system which ge nerated this result tra nsmitted reference range : <=1.0. The reference r alee was not used to int erpret this result as normal/abnormal . [facility] CampusJsdogstWBEYRHKAAZ9248-32-12 07:58:00 Test Item Value Reference Range Interpretation Comments Eosinophils (test code = 2.3 See_Comment [A utomated message] The Eosinophils) system which ge nerated this result tra nsmitted reference range : <=4.0. The reference r alee was not used to int erpret this result as normal/abnormal . [facility] CampusKiosimwCUDISSIBCR1526-18-36 07:58:00 Test Item Value Reference Range Interpretation Comments MCV (test code = MCV) 69.7 80.0-98.0 [facility] CampusJcqrgusKZVRJZAGBL6955-68-28 07:58:00 Test Item Value Reference Range Interpretation Comments MCH (test code = MCH) 22.2 pg 27.0-31.0 [facility] CampusJrolzpoTNLGKDOESG7153-08-27 07:58:00 Test Item Value Reference Range Interpretation Comments Platelet (test code = Platelet) 377 597-973 [facility] CampusGeafvdwKBXMVHYEPN4593-22-67 07:58:00 Test Item Value Reference Range Interpretation Comments MCHC (test code = MCHC) 31.9 32.0-36.0 [facility] CampusApehgqpODLKNXOOWF2650-50-62 07:58:00 Test Item Value Reference Range Interpretation Comments RDW (test code = RDW) 17.4 11.5-14.5 [facility] CampusVcqfxzwEGWRXVONEI1353-71-76 07:58:00 Test Item Value Reference Range Interpretation Comments MPV (test code = MPV) 7.4 7.4-10.4 [facility] CampusKzhqoveFHEYHOTDGA7207-40-80 07:58:00 Test Item Value Reference Range Interpretation Comments RBC (test code = RBC) 4.56 4.20-5.40 [facility] CampusSsravquIAEBIFYRJF9416-08-54 07:58:00 Test Item Value Reference Range Interpretation Comments Hgb (test code = Hgb) 10.1 12.0-16.0 [facility] CampusJtllhsnAMVEZNHQLJ2520-68-30 07:58:00 Test Item Value Reference Range Interpretation Comments Hct (test code = Hct) 31.7 36.0-48.0 [facility] CampusXqfhgvfOGBSFUFNCP4792-93-85 07:58:00 Test Item Value Reference Range Interpretation Comments WBC (test code = WBC) 9.1 3.7-10.4 [facility] CampusBcdqaotSSUDCRWPBG2507-57-49 07:58:00 Test Item Value Reference Range Interpretation Comments PTT (test code = PTT) 21.4 s 22.9-35.8 [facility] CampusQfvxbjnVHQMWKAEIB6443-95-04 07:58:00 Test Item Value Reference Range Interpretation Comments PT (test code = PT) 12.9 s 12.0-14.7 [facility] CampusAixcemtZOIVJZYSWY9390-36-28 07:58:00 Test Item Value Reference Range Interpretation Comments INR (test code = INR) 0.99 1 0.85-1.17 [facility] CampusIpbvyjlURZOWMJUVW1885-56-73 07:58:00 Test Item Value Reference Range Interpretation Comments Monocytes (test code = Monocytes) 6.9 2.0-12.0 [facility] CampusZgcxvkuPMCFBIHMKV7418-59-49 07:58:00 Test Item Value Reference Range Interpretation Comments Segs (test code = Segs) 51.6 45.0-75.0 [facility] CampusEtpdzpeXBOAUCVWKN4069-22-17 07:58:00 Test Item Value Reference Range Interpretation Comments Lymphocytes (test code = Lymphocytes) 39.0 20.0-40.0 [facility] CampusMrkkthaDFHDHXOASY1157-89-68 07:58:00 Test Item Value Reference Range Interpretation Comments Eosinophils # (test code 0.2 See_Comment [A utomated message] The = Eosinophils #) system [facility] h generated this result tra nsmitted reference range : <=0.5. The reference r alee was not used to int erpret this result as normal/abnormal . [facility] CampusKrfkgkzIRBPQWCOIF6222-30-40 07:58:00 Test Item Value Reference Range Interpretation Comments Microcyte (test code = 2+ *ABN*(08/12/18 Microcyte) 2:58 AM) [facility] CampusZfxdimmSAXJHIAOWF0019-80-22 07:58:00 Test Item Value Reference Range Interpretation Comments Neutrophils # (test code = Neutrophils 4.7 1.5-8.1 #) [facility] CampusYpvpiasOCMOSFUFLK6536-18-34 07:58:00 Test Item Value Reference Range Interpretation Comments Monocytes # (test code 0.6 See_Comment [Aut omated message] The = Monocytes #) system which generated this result tra nsmitted reference range : <=0.8. The reference r alee was not used to int erpret this result as normal/abnormal . [facility] CampusCuoudkqMEYQQOTUZV0039-00-10 07:58:00 Test Item Value Reference Range Interpretation Comments Lymphocytes # (test code = Lymphocytes 3.5 1.0-5.5 #) [facility] CampusDxzrqqoKQLPKVIJIR1521-75-94 07:58:00 Test Item Value Reference Range Interpretation Comments Basophils (test code = 0.2 See_Comment [Aut omated message] The Basophils) system which ge nerated this result tra nsmitted reference range : <=1.0. The reference r alee was not used to int erpret this result as normal/abnormal . [facility] CampusLmuvbbqDZTVRQHWJR6585-24-10 07:58:00 Test Item Value Reference Range Interpretation Comments Eosinophils (test code = 2.3 See_Comment [A utomated message] The Eosinophils) system which ge nerated this result tra nsmitted reference range : <=4.0. The reference r alee was not used to int erpret this result as normal/abnormal . [facility] CampusLjgsyooFTWEJBXJAY1404-42-31 07:58:00 Test Item Value Reference Range Interpretation Comments MCV (test code = MCV) 69.7 80.0-98.0 [facility] CampusJqlmqeqQZJUXQGNIA1183-19-53 07:58:00 Test Item Value Reference Range Interpretation Comments MCH (test code = MCH) 22.2 pg 27.0-31.0 [facility] CampusVprujvaYSYNQNQONX7085-33-81 07:58:00 Test Item Value Reference Range Interpretation Comments Platelet (test code = Platelet) 377 133-450 [facility] CampusMyiubuqBYXHLVCTUZ4264-27-57 07:58:00 Test Item Value Reference Range Interpretation Comments MCHC (test code = MCHC) 31.9 32.0-36.0 [facility] CampusWmgiltaKOXLQCZTAT3021-76-55 07:58:00 Test Item Value Reference Range Interpretation Comments RDW (test code = RDW) 17.4 11.5-14.5 [facility] CampusQjwnaeqIZYKDCZBKC4945-33-82 07:58:00 Test Item Value Reference Range Interpretation Comments MPV (test code = MPV) 7.4 7.4-10.4 [facility] CampusPmmdibbIFDKEBQEZX1215-69-37 07:58:00 Test Item Value Reference Range Interpretation Comments RBC (test code = RBC) 4.56 4.20-5.40 [facility] CampusVvtlcnjDDTBPQCYPI7751-35-33 07:58:00 Test Item Value Reference Range Interpretation Comments Hgb (test code = Hgb) 10.1 12.0-16.0 [facility] CampusJwnqdqaGOPKDQLUCK5611-18-38 07:58:00 Test Item Value Reference Range Interpretation Comments Hct (test code = Hct) 31.7 36.0-48.0 [facility] CampusDgybahiRGZNZMUVDM2118-11-06 07:58:00 Test Item Value Reference Range Interpretation Comments WBC (test code = WBC) 9.1 3.7-10.4 [facility] CampusYlrjmbsUCSMRPSISU1055-42-72 07:58:00 Test Item Value Reference Range Interpretation Comments PTT (test code = PTT) 21.4 s 22.9-35.8 [facility] CampusVuqjttaEWVPHEGXKL7919-73-23 07:58:00 Test Item Value Reference Range Interpretation Comments PT (test code = PT) 12.9 s 12.0-14.7 [facility] CampusRwpmosrOZUCTXQPTJ7236-94-13 07:58:00 Test Item Value Reference Range Interpretation Comments INR (test code = INR) 0.99 1 0.85-1.17 [facility] [employer] ETHPDJY2608-11-95 07:36:00 Test Item Value Reference Range Interpretation Comments BNP (test code = BNP) 22 [facility] CenterMeterHero UBRHYEU1209-76-66 07:36:00 Test Item Value Reference Range Interpretation Comments Total CK (test code = Total CK) 42 12-191 [facility] CenterNineSigma2019-05-24 07:36:00 Test Item Value Reference Range Interpretation Comments Troponin-I (test code no gt See_Comment [Auto mated message] The = Troponin-I) system which g enerated this result transmit kenroy reference range : <=0.40. The reference r alee was not used to interpr et this result as elton l/abnormal. [facility]2019-05-24 07:36:00 Test Item Value Reference Range Interpretation Comments A/G Ratio (test code = A/G Ratio) 0.8 1 0.7-1.6 [facility]Z2019-05-24 07:36:00 Test Item Value Reference Range Interpretation Comments AGAP (test code = AGAP) 11.8 10.0-20.0 [facility]2019-05-24 07:36:00 Test Item Value Reference Range Interpretation Comments B/C Ratio (test code = B/C Ratio) 14 1 6-25 [facility]2019-05-24 07:36:00 Test Item Value Reference Range Interpretation Comments Globulin (test code = Globulin) 4.7 2.7-4.2 [facility]2019-05-24 07:36:00 Test Item Value Reference Range Interpretation Comments eGFR (test code = eGFR) 80 [facility]Z2019-05-24 07:36:00 Test Item Value Reference Range Interpretation Comments AST (test code = AST) 15 See_Comment [Auto mated message] The system which ge nerated this result transmit kenroy reference range : <=37. The reference range was not used to interpr et this result as elton l/abnormal. [facility]2019-05-24 07:36:00 Test Item Value Reference Range Interpretation Comments Alk Phos (test code = Alk Phos) 110 39-136 [facility]2019-05-24 07:36:00 Test Item Value Reference Range Interpretation Comments ALT (test code = ALT) 20 See_Comment [Auto mated message] The system which ge nerated this result transmit kenroy reference range : <=65. The reference range was not used to interpr et this result as elton l/abnormal. [facility]2019-05-24 07:36:00 Test Item Value Reference Range Interpretation Comments Bili Total (test code = Bili Total) 0.3 0.2-1.3 [facility]2019-05-24 07:36:00 Test Item Value Reference Range Interpretation Comments Creatinine Lvl (test code = Creatinine 0.92 0.50-1.40 Lvl) [facility]2019-05-24 07:36:00 Test Item Value Reference Range Interpretation Comments Chloride Lvl (test code = Chloride Lvl) 100 95-109 [facility]2019-05-24 07:36:00 Test Item Value Reference Range Interpretation Comments CO2 (test code = CO2) 24 24-32 [facility]2019-05-24 07:36:00 Test Item Value Reference Range Interpretation Comments Sodium Lvl (test code = Sodium Lvl) 132 135-145 [facility]2019-05-24 07:36:00 Test Item Value Reference Range Interpretation Comments Potassium Lvl (test code = Potassium 3.8 3.5-5.1 Lvl) [facility]2019-05-24 07:36:00 Test Item Value Reference Range Interpretation Comments Calcium Lvl (test code = Calcium Lvl) 9.4 8.5-10.5 [facility]2019-05-24 07:36:00 Test Item Value Reference Range Interpretation Comments Total Protein (test code = Total 8.5 6.4-8.4 Protein) [facility]2019-05-24 07:36:00 Test Item Value Reference Range Interpretation Comments Albumin Lvl (test code = Albumin Lvl) 3.8 3.5-5.0 [facility]2019-05-24 07:36:00 Test Item Value Reference Range Interpretation Comments Glucose Lvl (test code = Glucose Lvl) 87 70-99 [facility]2019-05-24 07:36:00 Test Item Value Reference Range Interpretation Comments BUN (test code = BUN) 13 7-22 [facility]BeairtsKNOXWIEMXHWMD7353-20-62 07:36:00 Test Item Value Reference Range Interpretation Comments S Preg (test code = S Negative *NA*(08/12/18 Preg) 2:36 AM) [facility] CenterMeterHero NPSEWUA1515-41-05 07:36:00 Test Item Value Reference Range Interpretation Comments BNP (test code = BNP) 22 [facility] CenterMeterHero GRUTDXP2522-23-67 07:36:00 Test Item Value Reference Range Interpretation Comments Total CK (test code = Total CK) 42 12-191 [facility] CenterMeterHero INLJBLQ6655-05-40 07:36:00 Test Item Value Reference Range Interpretation Comments Troponin-I (test code no gt See_Comment [Auto mated message] The = Troponin-I) system which g enerated this result transmit kenroy reference range : <=0.40. The reference r alee was not used to interpr et this result as elton l/abnormal. [facility]Z2019-05-24 07:36:00 Test Item Value Reference Range Interpretation Comments A/G Ratio (test code = A/G Ratio) 0.8 1 0.7-1.6 [facility]2019-05-24 07:36:00 Test Item Value Reference Range Interpretation Comments AGAP (test code = AGAP) 11.8 10.0-20.0 [facility]2019-05-24 07:36:00 Test Item Value Reference Range Interpretation Comments B/C Ratio (test code = B/C Ratio) 14 1 6-25 [facility]2019-05-24 07:36:00 Test Item Value Reference Range Interpretation Comments Globulin (test code = Globulin) 4.7 2.7-4.2 [facility]2019-05-24 07:36:00 Test Item Value Reference Range Interpretation Comments eGFR (test code = eGFR) 80 [facility]2019-05-24 07:36:00 Test Item Value Reference Range Interpretation Comments AST (test code = AST) 15 See_Comment [Auto mated message] The system which ge nerated this result transmit kenroy reference range : <=37. The reference range was not used to interpr et this result as elton l/abnormal. [facility]2019-05-24 07:36:00 Test Item Value Reference Range Interpretation Comments Alk Phos (test code = Alk Phos) 110 39-136 [facility]2019-05-24 07:36:00 Test Item Value Reference Range Interpretation Comments ALT (test code = ALT) 20 See_Comment [Auto mated message] The system which ge nerated this result transmit kenroy reference range : <=65. The reference range was not used to interpr et this result as elton l/abnormal. [facility]2019-05-24 07:36:00 Test Item Value Reference Range Interpretation Comments Bili Total (test code = Bili Total) 0.3 0.2-1.3 [facility]2019-05-24 07:36:00 Test Item Value Reference Range Interpretation Comments Creatinine Lvl (test code = Creatinine 0.92 0.50-1.40 Lvl) [facility]2019-05-24 07:36:00 Test Item Value Reference Range Interpretation Comments Chloride Lvl (test code = Chloride Lvl) 100 95-109 [place] 829759-05-24 07:36:00 Test Item Value Reference Range Interpretation Comments CO2 (test code = CO2) 24 24-32 [facility]2019-05-24 07:36:00 Test Item Value Reference Range Interpretation Comments Sodium Lvl (test code = Sodium Lvl) 132 135-145 [facility]2019-05-24 07:36:00 Test Item Value Reference Range Interpretation Comments Potassium Lvl (test code = Potassium 3.8 3.5-5.1 Lvl) [facility]2019-05-24 07:36:00 Test Item Value Reference Range Interpretation Comments Calcium Lvl (test code = Calcium Lvl) 9.4 8.5-10.5 [place] 829759-05-24 07:36:00 Test Item Value Reference Range Interpretation Comments Total Protein (test code = Total 8.5 6.4-8.4 Protein) [place] 829759-05-24 07:36:00 Test Item Value Reference Range Interpretation Comments Albumin Lvl (test code = Albumin Lvl) 3.8 3.5-5.0 [facility]2019-05-24 07:36:00 Test Item Value Reference Range Interpretation Comments Glucose Lvl (test code = Glucose Lvl) 87 70-99 [facility] [employer] [id number] 07:36:00 Test Item Value Reference Range Interpretation Comments BUN (test code = BUN) 13 7-22 [facility]QybpweiPUHTSOMXNPSYD9564-82-47 07:36:00 Test Item Value Reference Range Interpretation Comments S Preg (test code = S Negative *NA*(08/12/18 Preg) 2:36 AM) [facility] CenterMeterHero REKQEXD4972-11-66 07:36:00 Test Item Value Reference Range Interpretation Comments BNP (test code = BNP) 22 [facility] CenterMeter[facility] ABBKVNY8303-70-83 07:36:00 Test Item Value Reference Range Interpretation Comments Total CK (test code = Total CK) 42 12-191 [facility] CenterCrowdEngineering HBDAEWF7700-70-34 07:36:00 Test Item Value Reference Range Interpretation Comments Troponin-I (test code no gt See_Comment [Auto mated message] The = Troponin-I) system which g enerated this result transmit kenroy reference range : <=0.40. The reference r alee was not used to interpr et this result as elton l/abnormal. [facility]2019-05-24 07:36:00 Test Item Value Reference Range Interpretation Comments A/G Ratio (test code = A/G Ratio) 0.8 1 0.7-1.6 [facility]2019-05-24 07:36:00 Test Item Value Reference Range Interpretation Comments AGAP (test code = AGAP) 11.8 10.0-20.0 [facility]2019-05-24 07:36:00 Test Item Value Reference Range Interpretation Comments B/C Ratio (test code = B/C Ratio) 14 1 6-25 [facility]2019-05-24 07:36:00 Test Item Value Reference Range Interpretation Comments Globulin (test code = Globulin) 4.7 2.7-4.2 [facility]2019-05-24 07:36:00 Test Item Value Reference Range Interpretation Comments eGFR (test code = eGFR) 80 [facility]2019-05-24 07:36:00 Test Item Value Reference Range Interpretation Comments AST (test code = AST) 15 See_Comment [Auto mated message] The system which ge nerated this result transmit kenroy reference range : <=37. The reference range was not used to interpr et this result as elton l/abnormal. [facility]2019-05-24 07:36:00 Test Item Value Reference Range Interpretation Comments Alk Phos (test code = Alk Phos) 110 39-136 [facility]2019-05-24 07:36:00 Test Item Value Reference Range Interpretation Comments ALT (test code = ALT) 20 See_Comment [Auto mated message] The system which ge nerated this result transmit kenroy reference range : <=65. The reference range was not used to interpr et this result as elton l/abnormal. [facility]2019-05-24 07:36:00 Test Item Value Reference Range Interpretation Comments Bili Total (test code = Bili Total) 0.3 0.2-1.3 [place] 829759-05-24 07:36:00 Test Item Value Reference Range Interpretation Comments Creatinine Lvl (test code = Creatinine 0.92 0.50-1.40 Lvl) [facility]2019-05-24 07:36:00 Test Item Value Reference Range Interpretation Comments Chloride Lvl (test code = Chloride Lvl) 100 95-109 [facility] CenterCoinbase MAEUM7073-61-05 07:36:00 Test Item Value Reference Range Interpretation Comments CO2 (test code = CO2) 24 24-32 [facility] CenterSentimentSAMPSON REGIONAL MEDICAL CENTEREUDSS7578-71-71 07:36:00 Test Item Value Reference Range Interpretation Comments Sodium Lvl (test code = Sodium Lvl) 132 135-145 [facility]2019-05-24 07:36:00 Test Item Value Reference Range Interpretation Comments Potassium Lvl (test code = Potassium 3.8 3.5-5.1 Lvl) [facility] CenterSentimentSAMPSON REGIONAL MEDICAL CENTERJCSCY0025-45-09 07:36:00 Test Item Value Reference Range Interpretation Comments Calcium Lvl (test code = Calcium Lvl) 9.4 8.5-10.5 [place] 829759-05-24 07:36:00 Test Item Value Reference Range Interpretation Comments Total Protein (test code = Total 8.5 6.4-8.4 Protein) [facility]2019-05-24 07:36:00 Test Item Value Reference Range Interpretation Comments Albumin Lvl (test code = Albumin Lvl) 3.8 3.5-5.0 [facility] [employer] [id number] 07:36:00 Test Item Value Reference Range Interpretation Comments Glucose Lvl (test code = Glucose Lvl) 87 70-99 [facility] [employer] [id number] 07:36:00 Test Item Value Reference Range Interpretation Comments BUN (test code = BUN) 13 7-22 [facility] TexasZzlzdinABLNDRPZNLOAJ1120-99-21 07:36:00 Test Item Value Reference Range Interpretation Comments S Preg (test code = S Negative *NA*(08/12/18 Preg) 2:36 AM) [facility] 07:36[facility]00 Test Item Value Reference Range Interpretation Comments BNP (test code = BNP) 22 [facility] CenterMeterHero [id number] 07:36:00 Test Item Value Reference Range Interpretation Comments Total CK (test code = Total CK) 42 12-191 [facility]2019[facility] 07:36:00 Test Item Value Reference Range Interpretation Comments Troponin-I (test code no gt See_Comment [Auto mated message] The = Troponin-I) system which g enerated this result transmit kenroy reference range : <=0.40. The reference r alee was not used to interpr et this result as elton l/abnormal. [facility] BOARDZ2019-05-24 07:36:00 Test Item Value Reference Range Interpretation Comments A/G Ratio (test code = A/G Ratio) 0.8 1 0.7-1.6 [facility] [employer] CWHEV2867-04-22 07:36:00 Test Item Value Reference Range Interpretation Comments AGAP (test code = AGAP) 11.8 10.0-20.0 [facility] BOARDZ2019-05-24 07:36:00 Test Item Value Reference Range Interpretation Comments B/C Ratio (test code = B/C Ratio) 14 1 6-25 [facility] BOARDZ2019-05-24 07:36:00 Test Item Value Reference Range Interpretation Comments Globulin (test code = Globulin) 4.7 2.7-4.2 [facility] BOARDZ2019-05-24 07:36:00 Test Item Value Reference Range Interpretation Comments eGFR (test code = eGFR) 80 [facility]2019-05-24 07:36:00 Test Item Value Reference Range Interpretation Comments AST (test code = AST) 15 See_Comment [Auto mated message] The system which ge nerated this result transmit kenroy reference range : <=37. The reference range was not used to interpr et this result as elton l/abnormal. [place] 829759-05-24 07:36:00 Test Item Value Reference Range Interpretation Comments Alk Phos (test code = Alk Phos) 110 39-136 [place] 829759-05-24 07:36:00 Test Item Value Reference Range Interpretation Comments ALT (test code = ALT) 20 See_Comment [Auto mated message] The system which ge nerated this result transmit kenroy reference range : <=65. The reference range was not used to interpr et this result as elton l/abnormal. [facility]2019-05-24 07:36:00 Test Item Value Reference Range Interpretation Comments Bili Total (test code = Bili Total) 0.3 0.2-1.3 [place] 829759-05-24 07:36:00 Test Item Value Reference Range Interpretation Comments Creatinine Lvl (test code = Creatinine 0.92 0.50-1.40 Lvl) [place] 829759-05-24 07:36:00 Test Item Value Reference Range Interpretation Comments Chloride Lvl (test code = Chloride Lvl) 100 95-109 [facility]2019-05-24 07:36:00 Test Item Value Reference Range Interpretation Comments CO2 (test code = CO2) 24 24-32 [place] 829759-05-24 07:36:00 Test Item Value Reference Range Interpretation Comments Sodium Lvl (test code = Sodium Lvl) 132 135-145 [place] 829759-05-24 07:36:00 Test Item Value Reference Range Interpretation Comments Potassium Lvl (test code = Potassium 3.8 3.5-5.1 Lvl) [facility]2019-05-24 07:36:00 Test Item Value Reference Range Interpretation Comments Calcium Lvl (test code = Calcium Lvl) 9.4 8.5-10.5 [place] 829759-05-24 07:36:00 Test Item Value Reference Range Interpretation Comments Total Protein (test code = Total 8.5 6.4-8.4 Protein) [facility] TKNRX9203-03-05 07:36:00 Test Item Value Reference Range Interpretation Comments Albumin Lvl (test code = Albumin Lvl) 3.8 3.5-5.0 [facility] CHCUU1599-08-15 07:36:00 Test Item Value Reference Range Interpretation Comments Glucose Lvl (test code = Glucose Lvl) 87 70-99 [facility] MJMCK3052-16-29 07:36:00 Test Item Value Reference Range Interpretation Comments BUN (test code = BUN) 13 7-22 [facility]DsxwyazFOPOLRIWAMWNP3438-75-58 07:36:00 Test Item Value Reference Range Interpretation Comments S Preg (test code = S Negative *NA*(08/12/18 Preg) 2:36 AM) [facility]2019-05-11 08:23:00 Test Item Value Reference Range Interpretation Comments Iron (test code = Iron) 17 30-160 [facility]2019-05-11 08:23:00 Test Item Value Reference Range Interpretation Comments TIBC (test code = TIBC) 479 228-428 [facility]2019-05-11 08:23:00 Test Item Value Reference Range Interpretation Comments % Satur Fe (test code = % Satur Fe) 4 12-57 [facility] DZSRX9934-99-68 08:23:00 Test Item Value Reference Range Interpretation Comments UIBC (test code = UIBC) 462 110-370 [facility]2019-05-11 08:23:00 Test Item Value Reference Range Interpretation Comments Ferritin Lvl (test code = Ferritin Lvl) 14 5-204 [facility]2019-05-11 08:23:00 Test Item Value Reference Range Interpretation Comments Vitamin B12 Lvl (test code = Vitamin [phone] B12 Lvl) [facility] GGTCC8071-31-27 08:23:00 Test Item Value Reference Range Interpretation Comments Folate Lvl (test code = Folate Lvl) 7[facility]4 [facility] IUVUGJC7556-52-42 08:23:00 Test Item Value Reference Range Interpretation Comments Troponin-I (test code no gt See_Comment [Auto mated message] The = Troponin-I) system which g enerated this result transmit kenroy reference range : <=0.40. The reference r alee was not used to interpr et this result as elton l/abnormal. [facility]2019-05-11 08:23:00 Test Item Value Reference Range Interpretation Comments LDH (test code = LDH) 111 98-192 [facility] HospitalYptzvxyZQHTSIJHFLXJ6924-53-60 08:23:00 Test Item Value Reference Range Interpretation Comments CO2 (test code = CO2) 30 24-32 [facility] HospitalIilgkdkUPVEBEAYGFQB6617-16-05 08:23:00 Test Item Value Reference Range Interpretation Comments Total Protein (test code = Total 7.3 6.4-8.4 Protein) [facility] HospitalMoxegaiNHWTFJQBDFAL6983-71-80 08:23:00 Test Item Value Reference Range Interpretation Comments Alk Phos (test code = Alk Phos) 116 39-136 [facility] HospitalTnvypdlQZTMIEQGUBXK8834-50-98 08:23:00 Test Item Value Reference Range Interpretation Comments B/C Ratio (test code = B/C Ratio) 18 1 6-25 [facility] HospitalVleguelANAEVTISQFYR3090-73-61 08:23:00 Test Item Value Reference Range Interpretation Comments Calcium Lvl (test code = Calcium Lvl) 9.1 8.5-10.5 [facility] HospitalBcxcpydPHXRBJRRQYGL5148-53-53 08:23:00 Test Item Value Reference Range Interpretation Comments AGAP (test code = AGAP) 10.8 10.0-20.0 [facility] HospitalAcukpqqMWNCDIQVTJOU6326-82-94 08:23:00 Test Item Value Reference Range Interpretation Comments AST (test code = AST) 8 See_Comment [Auto mated message] The system which ge nerated this result transmit kenroy reference range : <=37. The reference range was not used to interpr et this result as elton l/abnormal. [facility] HospitalJnpnwqxCZQRLRSEEDLX4313-24-51 08:23:00 Test Item Value Reference Range Interpretation Comments ALT (test code = ALT) 14 See_Comment [Auto mated message] The system which ge nerated this result transmit kenroy reference range : <=65. The reference range was not used to interpr et this result as elton l/abnormal. [facility] HospitalBhwwqxoUYGKCYZATXRI0251-54-12 08:23:00 Test Item Value Reference Range Interpretation Comments A/G Ratio (test code = A/G Ratio) 0.7 1 0.7-1.6 [facility] HospitalEcxttyuEDRULYRSVVHM2638-00-04 08:23:00 Test Item Value Reference Range Interpretation Comments Globulin (test code = Globulin) 4.3 2.7-4.2 [facility] HospitalUdanqweVBEYFIMLKYRB6157-22-93 08:23:00 Test Item Value Reference Range Interpretation Comments Glucose Lvl (test code = Glucose Lvl) 110 70-99 [facility] HospitalZxcqthoIGHOSCKWUFVW2368-54-18 08:23:00 Test Item Value Reference Range Interpretation Comments Chloride Lvl (test code = Chloride Lvl) 99 95-109 [facility] HospitalMecsjscSMGFWSEVKQDB0709-91-12 08:23:00 Test Item Value Reference Range Interpretation Comments Potassium Lvl (test code = Potassium 3.8 3.5-5.1 Lvl) [facility] HospitalFxjdwulNHCRATUWPMFC8756-30-87 08:23:00 Test Item Value Reference Range Interpretation Comments Sodium Lvl (test code = Sodium Lvl) 136 135-145 [facility] HospitalLatowqkRTNFQFAIXYNR5874-87-84 08:23:00 Test Item Value Reference Range Interpretation Comments Creatinine Lvl (test code = Creatinine 0.79 0.50-1.40 Lvl) [facility] HospitalRghpewaBSQKQKNMBNLB9861-43-18 08:23:00 Test Item Value Reference Range Interpretation Comments BUN (test code = BUN) 14 7-22 [facility] HospitalRserfizVEFGKPTNPHTJ0453-27-69 08:23:00 Test Item Value Reference Range Interpretation Comments eGFR (test code = eGFR) 95 [facility] HospitalQydhjhvIENOTCKGYDTT2310-02-89 08:23:00 Test Item Value Reference Range Interpretation Comments Bili Total (test code = Bili Total) 0.3 0.2-1.3 [facility] HospitalDuklneyAKCMNHQBEDHF3704-62-13 08:23:00 Test Item Value Reference Range Interpretation Comments Albumin Lvl (test code = Albumin Lvl) 3.0 3.5-5.0 [facility] CampusWpszpmnLRERQHTPKE6054-95-30 08:23:00 Test Item Value Reference Range Interpretation Comments MCHC (test code = MCHC) 31.4 32.0-36.0 [facility] CampusNifecqpCVQVHBBVFE1668-54-61 08:23:00 Test Item Value Reference Range Interpretation Comments MCH (test code = MCH) 22.3 pg 27.0-31.0 [facility] CampusOkghtoqUGUPMDPYQO2535-99-24 08:23:00 Test Item Value Reference Range Interpretation Comments MCV (test code = MCV) 71.1 80.0-98.0 [facility] CampusQggydojVQREACYPJC3260-83-76 08:23:00 Test Item Value Reference Range Interpretation Comments Hct (test code = Hct) 30.0 36.0-48.0 [facility] CampusEkvocroLFNWJFMNZL7765-38-87 08:23:00 Test Item Value Reference Range Interpretation Comments Hgb (test code = Hgb) 9.4 12.0-16.0 [facility] CampusSqinxevLCSBTQHFSM5814-84-71 08:23:00 Test Item Value Reference Range Interpretation Comments Platelet (test code = Platelet) 309 133-450 [facility] CampusInprgrlMQUFIZBYUF7909-12-90 08:23:00 Test Item Value Reference Range Interpretation Comments RDW (test code = RDW) 17.4 11.5-14.5 [facility] CampusNhrmvdvXFNOUMWBCQ2646-05-79 08:23:00 Test Item Value Reference Range Interpretation Comments MPV (test code = MPV) 7.8 7.4-10.4 [facility] CampusOyphlvcAQTHHGEMCI9336-45-50 08:23:00 Test Item Value Reference Range Interpretation Comments RBC (test code = RBC) 4.22 4.20-5.40 [facility] CampusGlxhphqFFGBULOUJV4939-70-29 08:23:00 Test Item Value Reference Range Interpretation Comments WBC (test code = WBC) 9.6 3.7-10.4 [facility] CampusDrmdwbuGVZAIIKOXL7608-87-01 08:23:00 Test Item Value Reference Range Interpretation Comments Eosinophils # (test code 0.1 See_Comment [A utomated message] The = Eosinophils #) system whic h generated this result tra nsmitted reference range : <=0.5. The reference r alee was not used to int erpret this result as normal/abnormal . [facility] CampusFbfosgzOAETTLFTBM7555-35-07 08:23:00 Test Item Value Reference Range Interpretation Comments Monocytes # (test code 0.7 See_Comment [Aut omated message] The = Monocytes #) system which generated this result tra nsmitted reference range : <=0.8. The reference r alee was not used to int erpret this result as normal/abnormal . [facility] CampusPhwhuvgCFGDEHJKOS1524-03-37 08:23:00 Test Item Value Reference Range Interpretation Comments Lymphocytes # (test code = Lymphocytes 1.8 1.0-5.5 #) [facility] CampusYjnzyhuIJHFHGZWTL6169-47-49 08:23:00 Test Item Value Reference Range Interpretation Comments Neutrophils # (test code = Neutrophils 6.8 1.5-8.1 #) [facility] CampusPclzyeoSKXNDPQVHW1489-24-58 08:23:00 Test Item Value Reference Range Interpretation Comments Basophils # (test code 0.1 See_Comment [Aut omated message] The = Basophils #) system which generated this result tra nsmitted reference range : <=0.2. The reference r alee was not used to int erpret this result as normal/abnormal . [facility] CampusBerkwtiBWPUPMYFFH0748-22-18 08:23:00 Test Item Value Reference Range Interpretation Comments Microcyte (test code = 2+ *ABN*(07/30/18 Microcyte) 3:23 AM) [facility] CampusDmbtkuqURTONDIMPB8096-73-30 08:23:00 Test Item Value Reference Range Interpretation Comments Monocytes (test code = Monocytes) 7.3 2.0-12.0 [facility] CampusLahrenhWUELRXRVVS1122-68-59 08:23:00 Test Item Value Reference Range Interpretation Comments Lymphocytes (test code = Lymphocytes) 18.8 20.0-40.0 [facility] CampusRpzjlrrCYYTTHHTSY8820-75-30 08:23:00 Test Item Value Reference Range Interpretation Comments Segs (test code = Segs) 71.8 45.0-75.0 [facility] CampusLqkcmgvQLXJZVJVPO2743-38-98 08:23:00 Test Item Value Reference Range Interpretation Comments Basophils (test code = 0.8 See_Comment [Aut omated message] The Basophils) system which ge nerated this result tra nsmitted reference range : <=1.0. The reference r alee was not used to int erpret this result as normal/abnormal . [facility] CampusTxmzvjyBQFIYOXGSE4312-51-11 08:23:00 Test Item Value Reference Range Interpretation Comments Eosinophils (test code = 1.3 See_Comment [A utomated message] The Eosinophils) system which ge nerated this result tra nsmitted reference range : <=4.0. The reference r alee was not used to int erpret this result as normal/abnormal . [place] 581909-05-11 08:23:00 Test Item Value Reference Range Interpretation Comments Retic Auto (test code = Retic Auto) 1.7 0.5-1.5 [facility]CjvsqroQTJERN9862-30-40 08:23:00 Test Item Value Reference Range Interpretation Comments VLDL (test code = VLDL) 10 1 [facility]ressAtavyyqTIWLLK6392-49-55 08:23:00 Test Item Value Reference Range Interpretation Comments CHD Risk (test code = CHD Risk) 3.94 1 3.90-5.80 [facility]ressPqgseusJWMXSS1681-40-90 08:23:00 Test Item Value Reference Range Interpretation Comments HDL (test code = HDL) 50 [facility]ressXujolfdBVHETT2332-87-80 08:23:00 Test Item Value Reference Range Interpretation Comments Trig (test code = Trig) 50 [facility] CypressQoatngzBWLAOZ3630-89-98 08:23:00 Test Item Value Reference Range Interpretation Comments Chol (test code = Chol) 197 [facility] CypressRjutwtzAIKXPC0703-64-18 08:23:00 Test Item Value Reference Range Interpretation Comments LDL (Calculated) (test code = LDL 137 (Calculated)) [facility] FNZRGWHMW1350-68-36 08:23:00 Test Item Value Reference Range Interpretation Comments Hgb A1C (test code = Hgb A1C) 6.0 [facility]2019-05-11 08:23:00 Test Item Value Reference Range Interpretation Comments Iron (test code = Iron) 17 30-160 [facility]2019-05-11 08:23:00 Test Item Value Reference Range Interpretation Comments TIBC (test code = TIBC) 479 228428 [facility]2019-05-11 08:23:00 Test Item Value Reference Range Interpretation Comments % Satur Fe (test code = % Satur Fe) 4 12-57 [facility]2019-05-11 08:23:00 Test Item Value Reference Range Interpretation Comments UIBC (test code = UIBC) 462 110-370 [facility]2019-05-11 08:23:00 Test Item Value Reference Range Interpretation Comments Ferritin Lvl (test code = Ferritin Lvl) 14 5-204 [facility]2019-05-11 08:23:00 Test Item Value Reference Range Interpretation Comments Vitamin B12 Lvl (test code = Vitamin [phone] B12 Lvl) [facility] CenterRadhaNEMIA IESZR0369-65-06 08:23:00 Test Item Value Reference Range Interpretation Comments Folate Lvl (test code = Folate Lvl) 7.4 [facility] CenteredwinCARDIAC JIITELP1856-59-72 08:23:00 Test Item Value Reference Range Interpretation Comments Troponin-I (test code no gt See_Comment [Auto mated message] The = Troponin-I) system which g enerated this result transmit kenroy reference range : <=0.40. The reference r alee was not used to interpr et this result as elton l/abnormal. [facility] CenterCHEM ZHAYC4146-63-66 08:23:00 Test Item Value Reference Range Interpretation Comments LDH (test code = LDH) 111 98-192 [facility] HospitalHafpfpjLUHUGTQJPVUE4731-01-74 08:23:00 Test Item Value Reference Range Interpretation Comments CO2 (test code = CO2) 30 24-32 [facility] CenterSuwicohBGZSCJJDANAI0279-03-31 08:23:00 Test Item Value Reference Range Interpretation Comments Total Protein (test code = Total 7.3 6.4-8.4 Protein) [facility] CenterOmzyzhpOJTJGEIJNCLQ7134-06-86 08:23:00 Test Item Value Reference Range Interpretation Comments Alk Phos (test code = Alk Phos) 116 39-136 [facility] HospitalNxbjjjoLDSTPNVZVNUG2525-84-79 08:23:00 Test Item Value Reference Range Interpretation Comments B/C Ratio (test code = B/C Ratio) 18 1 6-25 [facility] CenterRmlczplSOJBILOKAOTO0143-64-82 08:23:00 Test Item Value Reference Range Interpretation Comments Calcium Lvl (test code = Calcium Lvl) 9.1 8.5-10.5 [facility] CenterOgfknniWANNROOQFHOX1036-45-58 08:23:00 Test Item Value Reference Range Interpretation Comments AGAP (test code = AGAP) 10.8 10.0-20.0 [facility] HospitalYwhydxnCQBMORYIGAAG8085-41-73 08:23:00 Test Item Value Reference Range Interpretation Comments AST (test code = AST) 8 See_Comment [Auto mated message] The system which ge nerated this result transmit kenroy reference range : <=37. The reference range was not used to interpr et this result as elton l/abnormal. [facility] HospitalZchegbyMZAQQZSRNRDY1721-65-80 08:23:00 Test Item Value Reference Range Interpretation Comments ALT (test code = ALT) 14 See_Comment [Auto mated message] The system which ge nerated this result transmit kenroy reference range : <=65. The reference range was not used to interpr et this result as elton l/abnormal. [facility] HospitalHcakamwTFATDJEDBGFF0917-95-66 08:23:00 Test Item Value Reference Range Interpretation Comments A/G Ratio (test code = A/G Ratio) 0.7 1 0.7-1.6 [facility] HospitalVfgowktCCBHYOXLGTED1166-60-70 08:23:00 Test Item Value Reference Range Interpretation Comments Globulin (test code = Globulin) 4.3 2.7-4.2 [facility] HospitalMlndipmTQQQMJFDVNPZ2988-59-15 08:23:00 Test Item Value Reference Range Interpretation Comments Glucose Lvl (test code = Glucose Lvl) 110 70-99 [facility] HospitalTnajnlvMBQIYLXTGWNR5045-15-31 08:23:00 Test Item Value Reference Range Interpretation Comments Chloride Lvl (test code = Chloride Lvl) 99 95-109 [facility] HospitalTaoqtosVJMIHVUGVXQE5329-87-52 08:23:00 Test Item Value Reference Range Interpretation Comments Potassium Lvl (test code = Potassium 3.8 3.5-5.1 Lvl) [facility] HospitalKemlaalSZWQNPIONKKC0004-03-63 08:23:00 Test Item Value Reference Range Interpretation Comments Sodium Lvl (test code = Sodium Lvl) 136 135-145 [facility] HospitalAlzwuycNDMOSRHKDETV5227-44-82 08:23:00 Test Item Value Reference Range Interpretation Comments Creatinine Lvl (test code = Creatinine 0.79 0.50-1.40 Lvl) [facility] HospitalRgactghDRCLTZNETSPS9707-10-96 08:23:00 Test Item Value Reference Range Interpretation Comments BUN (test code = BUN) 14 7-22 [facility] HospitalAtfywcxSJEJRKUXTATO4697-93-20 08:23:00 Test Item Value Reference Range Interpretation Comments eGFR (test code = eGFR) 95 [facility] HospitalHbheokvNLYEGCMPNVJK5396-36-35 08:23:00 Test Item Value Reference Range Interpretation Comments Bili Total (test code = Bili Total) 0.3 0.2-1.3 [facility] HospitalLgjxodmMUYGTZZTSUST6292-35-10 08:23:00 Test Item Value Reference Range Interpretation Comments Albumin Lvl (test code = Albumin Lvl) 3.0 3.5-5.0 [facility] CampusNzwbgqsVKXWMTSEKK1072-39-43 08:23:00 Test Item Value Reference Range Interpretation Comments MCHC (test code = MCHC) 31.4 32.0-36.0 [facility] CampusNijctosGMUFUEHJVC6015-95-64 08:23:00 Test Item Value Reference Range Interpretation Comments MCH (test code = MCH) 22.3 pg 27.0-31.0 [facility] CampusOmlfsugNFBPLVSMDM8307-86-62 08:23:00 Test Item Value Reference Range Interpretation Comments MCV (test code = MCV) 71.1 80.0-98.0 [facility] CampusNvylygoQTWIIOGEKA3601-07-00 08:23:00 Test Item Value Reference Range Interpretation Comments Hct (test code = Hct) 30.0 36.0-48.0 [facility] CampusVgvdxfxVMHEWOJFSP8786-59-00 08:23:00 Test Item Value Reference Range Interpretation Comments Hgb (test code = Hgb) 9.4 12.0-16.0 [facility] CampusUnadeqoKSUYWSWKSD6830-70-57 08:23:00 Test Item Value Reference Range Interpretation Comments Platelet (test code = Platelet) 309 133-450 [facility] CampusGburqgtZRSNVKPPGU7478-89-01 08:23:00 Test Item Value Reference Range Interpretation Comments RDW (test code = RDW) 17.4 11.5-14.5 [facility] CampusDvnpwqcRHGKGWSKHU5328-74-00 08:23:00 Test Item Value Reference Range Interpretation Comments MPV (test code = MPV) 7.8 7.4-10.4 [facility] CampusYygwrhxZUAKWKTWZO5698-51-13 08:23:00 Test Item Value Reference Range Interpretation Comments RBC (test code = RBC) 4.22 4.20-5.40 [facility] CampusMavgseoNVFELVRJDX3363-89-38 08:23:00 Test Item Value Reference Range Interpretation Comments WBC (test code = WBC) 9.6 3.7-10.4 [facility] CampusLzxdpzfGRSFKXUDTG6323-28-49 08:23:00 Test Item Value Reference Range Interpretation Comments Eosinophils # (test code 0.1 See_Comment [A utomated message] The = Eosinophils #) system ic h generated this result tra nsmitted reference range : <=0.5. The reference r alee was not used to int erpret this result as normal/abnormal . [facility] CampusSngmvmrDVVREPLNLB4855-13-21 08:23:00 Test Item Value Reference Range Interpretation Comments Monocytes # (test code 0.7 See_Comment [Aut omated message] The = Monocytes #) system which generated this result tra nsmitted reference range : <=0.8. The reference r alee was not used to int erpret this result as normal/abnormal . [facility] CampusGsrvhcvRREVUZLEII7615-76-23 08:23:00 Test Item Value Reference Range Interpretation Comments Lymphocytes # (test code = Lymphocytes 1.8 1.0-5.5 #) [facility] CampusEniphelSOWTUCESIA2229-79-83 08:23:00 Test Item Value Reference Range Interpretation Comments Neutrophils # (test code = Neutrophils 6.8 1.5-8.1 #) [facility] CampusDshznyaOAESEIXIBO3256-86-99 08:23:00 Test Item Value Reference Range Interpretation Comments Basophils # (test code 0.1 See_Comment [Aut omated message] The = Basophils #) system which generated this result tra nsmitted reference range : <=0.2. The reference r alee was not used to int erpret this result as normal/abnormal . [facility] [facility]ieat[facility]DPPZOJIXNV3858-35-13 08:23:00 Test Item Value Reference Range Interpretation Comments Microcyte (test code = 2+ *ABN*(07/30/18 Microcyte) 3:23 AM) [place] [address]-05-11 08:23:00 Test Item Value Reference Range Interpretation Comments Monocytes (test code = Monocytes) 7.3 2.0-12.0 [facility] CampusFrjvegdQCNEGLZEAY2066-85-26 08:23:00 Test Item Value Reference Range Interpretation Comments Lymphocytes (test code = Lymphocytes) 18.8 20.0-40.0 [place] 581909-05-11 08:23:00 Test Item Value Reference Range Interpretation Comments Segs (test code = Segs) 71.8 45.0-75.0 [place] 581909-05-11 08:23:00 Test Item Value Reference Range Interpretation Comments Basophils (test code = 0.8 See_Comment [Aut omated message] The Basophils) system which ge nerated this result tra nsmitted reference range : <=1.0. The reference r alee was not used to int erpret this result as normal/abnormal . [facility]xy[facility]soJGTWSBCXOU6480-78-70 08:23:00 Test Item Value Reference Range Interpretation Comments Eosinophils (test code = 1.3 See_Comment [A utomated message] The Eosinophils) system which ge nerated this result tra nsmitted reference range : <=4.0. The reference r alee was not used to int erpret this result as normal/abnormal . [facility] CampusPgkwqkyWWYVCJQSFL5645-52-34 08:23:00 Test Item Value Reference Range Interpretation Comments Retic Auto (test code = Retic Auto) 1.7 0.5-1.5 [facility] CenterRediwipWAGINQ7346-33-58 08:23:00 Test Item Value Reference Range Interpretation Comments VLDL (test code = VLDL) 10 1 [facility]PelxywxBYBHWA8839-17-19 08:23:00 Test Item Value Reference Range Interpretation Comments CHD Risk (test code = CHD Risk) 3.94 1 3.90-5.80 [facility] CypressOzckagiMAPVCC9898-25-82 08:23:00 Test Item Value Reference Range Interpretation Comments HDL (test code = HDL) 50 [facility] CenterMeoivqaKRWUMK0391-71-27 08:23:00 Test Item Value Reference Range Interpretation Comments Trig (test code = Trig) 50 [facility] CenterZrwwtbfWOCFGN4663-56-55 08:23:00 Test Item Value Reference Range Interpretation Comments Chol (test code = Chol) 197 [facility]ressWapktjoACHXQW9251-23-34 08:23:00 Test Item Value Reference Range Interpretation Comments LDL (Calculated) (test code = LDL 137 (Calculated)) [facility] ZAJEYTWYD8786-34-49 08:23:00 Test Item Value Reference Range Interpretation Comments Hgb A1C (test code = Hgb A1C) 6.0 [facility] VNCRC9592-56-51 08:23:00 Test Item Value Reference Range Interpretation Comments Iron (test code = Iron) 17 30-160 [facility]2019-05-11 08:23:00 Test Item Value Reference Range Interpretation Comments TIBC (test code = TIBC) 092 937-732 [facility]2019-05-11 08:23:00 Test Item Value Reference Range Interpretation Comments % Satur Fe (test code = % Satur Fe) 4 12-57 [facility]2019-05-11 08:23:00 Test Item Value Reference Range Interpretation Comments UIBC (test code = UIBC) 462 110-370 [facility] WLUJE3088-06-27 08:23:00 Test Item Value Reference Range Interpretation Comments Ferritin Lvl (test code = Ferritin Lvl) 14 5-204 [facility] CMCWE2497-77-13 08:23:00 Test Item Value Reference Range Interpretation Comments Vitamin B12 Lvl (test code = Vitamin [phone] B12 Lvl) [facility] HGPDS4525-92-31 08:23:00 Test Item Value Reference Range Interpretation Comments Folate Lvl (test code = Folate Lvl) 7.4 [facility] BLPYNPU7198-58-72 08:23:00 Test Item Value Reference Range Interpretation Comments Troponin-I (test code no gt See_Comment [Auto mated message] The = Troponin-I) system which g enerated this result transmit kenroy reference range : <=0.40. The reference r alee was not used to interpr et this result as elton l/abnormal. [facility] CenterCHEM YXMYK0823-70-70 08:23:00 Test Item Value Reference Range Interpretation Comments LDH (test code = LDH) 111 98-192 [facility] HospitalOyqaomtGDAMMFVHWOEW0064-17-10 08:23:00 Test Item Value Reference Range Interpretation Comments CO2 (test code = CO2) 30 24-32 [facility] HospitalVptvsvaQSLJRIGMXJOD3165-00-81 08:23:00 Test Item Value Reference Range Interpretation Comments Total Protein (test code = Total 7.3 6.4-8.4 Protein) [facility]TmjdcvjDEIAJXKWMGIZ6093-49-88 08:23:00 Test Item Value Reference Range Interpretation Comments Alk Phos (test code = Alk Phos) 116 39-136 [facility] HospitalXgqfmjyLYIFCBBOJOOZ4547-57-07 08:23:00 Test Item Value Reference Range Interpretation Comments B/C Ratio (test code = B/C Ratio) 18 1 6-25 [facility] HospitalXubfvdzSIXPMKYPRYPZ1930-81-75 08:23:00 Test Item Value Reference Range Interpretation Comments Calcium Lvl (test code = Calcium Lvl) 9.1 8.5-10.5 [facility] HospitalAofyrbbJFGOEDUSIUYQ0638-37-22 08:23:00 Test Item Value Reference Range Interpretation Comments AGAP (test code = AGAP) 10.8 10.0-20.0 [facility] HospitalTfivimrVHCHFUVSBMDM8101-33-18 08:23:00 Test Item Value Reference Range Interpretation Comments AST (test code = AST) 8 See_Comment [Auto mated message] The system which ge nerated this result transmit kenroy reference range : <=37. The reference range was not used to interpr et this result as elton l/abnormal. [facility] HospitalSojadcxDIUIXXKIHZPG6842-07-46 08:23:00 Test Item Value Reference Range Interpretation Comments ALT (test code = ALT) 14 See_Comment [Auto mated message] The system which ge nerated this result transmit kenroy reference range : <=65. The reference range was not used to interpr et this result as elton l/abnormal. [facility] HospitalWcypzktSVZVQGTJCNOR4680-57-30 08:23:00 Test Item Value Reference Range Interpretation Comments A/G Ratio (test code = A/G Ratio) 0.7 1 0.7-1.6 [facility] HospitalLawucdaMWUEZUDXZEIO0258-65-57 08:23:00 Test Item Value Reference Range Interpretation Comments Globulin (test code = Globulin) 4.3 2.7-4.2 [facility] HospitalGiorrpxJSWWIZOMIQBK5340-44-40 08:23:00 Test Item Value Reference Range Interpretation Comments Glucose Lvl (test code = Glucose Lvl) 110 70-99 [facility] HospitalAbnjzcxNNZQRTLNYNPP1789-12-34 08:23:00 Test Item Value Reference Range Interpretation Comments Chloride Lvl (test code = Chloride Lvl) 99 95-109 [facility] HospitalNidczzkIAZYFVJUUCBO8632-90-04 08:23:00 Test Item Value Reference Range Interpretation Comments Potassium Lvl (test code = Potassium 3.8 3.5-5.1 Lvl) [facility] HospitalIxubzqkVEBEPBBRIYIR7286-59-83 08:23:00 Test Item Value Reference Range Interpretation Comments Sodium Lvl (test code = Sodium Lvl) 136 135-145 [facility] HospitalJutjsfpARIFOEJGHLFC8743-76-02 08:23:00 Test Item Value Reference Range Interpretation Comments Creatinine Lvl (test code = Creatinine 0.79 0.50-1.40 Lvl) [facility] HospitalNvrcctlANSICADECLIP7334-35-71 08:23:00 Test Item Value Reference Range Interpretation Comments BUN (test code = BUN) 14 7-22 [facility] HospitalNdhzekoQIGGJNFSUFIW4417-54-15 08:23:00 Test Item Value Reference Range Interpretation Comments eGFR (test code = eGFR) 95 [facility] HospitalQjdglorMSASEEIFFCHL5629-81-38 08:23:00 Test Item Value Reference Range Interpretation Comments Bili Total (test code = Bili Total) 0.3 0.2-1.3 [facility] HospitalSlnanudVZRVIOEYMRMQ3670-64-75 08:23:00 Test Item Value Reference Range Interpretation Comments Albumin Lvl (test code = Albumin Lvl) 3.0 3.5-5.0 [facility] CampusLlazozpEFWPMPMAWJ6663-41-64 08:23:00 Test Item Value Reference Range Interpretation Comments MCHC (test code = MCHC) 31.4 32.0-36.0 [facility] CampusNkyszfyHNWGGKXKCX5927-41-27 08:23:00 Test Item Value Reference Range Interpretation Comments MCH (test code = MCH) 22.3 pg 27.0-31.0 [facility] CampusBwmldzwDIOQNYBEWL4541-83-43 08:23:00 Test Item Value Reference Range Interpretation Comments MCV (test code = MCV) 71.1 80.0-98.0 [facility] CampusAbsadkqXWMVYAMKCZ5989-75-05 08:23:00 Test Item Value Reference Range Interpretation Comments Hct (test code = Hct) 30.0 36.0-48.0 [facility] CampusImkiqujSEOHJSVPLR3767-28-33 08:23:00 Test Item Value Reference Range Interpretation Comments Hgb (test code = Hgb) 9.4 12.0-16.0 [facility] CampusDeddiwgUXHPLVWKYO5391-90-82 08:23:00 Test Item Value Reference Range Interpretation Comments Platelet (test code = Platelet) 309 133-450 [facility] CampusZjbxnyvHNGQDWCJIO2940-03-21 08:23:00 Test Item Value Reference Range Interpretation Comments RDW (test code = RDW) 17.4 11.5-14.5 [facility] CampusEhuwlqfFJSZFVDFFV1793-46-47 08:23:00 Test Item Value Reference Range Interpretation Comments MPV (test code = MPV) 7.8 7.4-10.4 [facility] CampusUotvhgoGNSRWSTWNA4096-32-95 08:23:00 Test Item Value Reference Range Interpretation Comments RBC (test code = RBC) 4.22 4.20-5.40 [facility] CampusOmkkvnoKAZNGUKMLV1207-76-01 08:23:00 Test Item Value Reference Range Interpretation Comments WBC (test code = WBC) 9.6 3.7-10.4 [facility] CampusWmvhrxeVSHBLDOQAQ5379-14-47 08:23:00 Test Item Value Reference Range Interpretation Comments Eosinophils # (test code 0.1 See_Comment [A utomated message] The = Eosinophils #) system whic h generated this result tra nsmitted reference range : <=0.5. The reference r alee was not used to int erpret this result as normal/abnormal . [facility] CampusTnpxyccUMRAPJDXPV4526-22-73 08:23:00 Test Item Value Reference Range Interpretation Comments Monocytes # (test code 0.7 See_Comment [Aut omated message] The = Monocytes #) system which generated this result tra nsmitted reference range : <=0.8. The reference r alee was not used to int erpret this result as normal/abnormal . [facility] CampusAipbmkpCXTKXZOJZC6287-88-14 08:23:00 Test Item Value Reference Range Interpretation Comments Lymphocytes # (test code = Lymphocytes 1.8 1.0-5.5 #) [facility] CampusMrudozmFWGEZZWZAR5349-88-49 08:23:00 Test Item Value Reference Range Interpretation Comments Neutrophils # (test code = Neutrophils 6.8 1.5-8.1 #) [facility] CampusElfunflRVGKLUDVFL6951-26-83 08:23:00 Test Item Value Reference Range Interpretation Comments Basophils # (test code 0.1 See_Comment [Aut omated message] The = Basophils #) system which generated this result tra nsmitted reference range : <=0.2. The reference r alee was not used to int erpret this result as normal/abnormal . [facility] CampusTvpxpibBLGUZACJQO8525-43-48 08:23:00 Test Item Value Reference Range Interpretation Comments Microcyte (test code = 2+ *ABN*(07/30/18 Microcyte) 3:23 AM) [facility] CampusLzbgplwPGFQIURATZ3795-96-24 08:23:00 Test Item Value Reference Range Interpretation Comments Monocytes (test code = Monocytes) 7.3 2.0-12.0 [facility] CampusEojwaqrAMLGENZTDI6170-72-75 08:23:00 Test Item Value Reference Range Interpretation Comments Lymphocytes (test code = Lymphocytes) 18.8 20.0-40.0 [facility] CampusEcjmbogUNQEEGHJZZ1227-24-36 08:23:00 Test Item Value Reference Range Interpretation Comments Segs (test code = Segs) 71.8 45.0-75.0 [facility] CampusRolzulgVHWBOPQAVC9287-02-76 08:23:00 Test Item Value Reference Range Interpretation Comments Basophils (test code = 0.8 See_Comment [Aut omated message] The Basophils) system which ge nerated this result tra nsmitted reference range : <=1.0. The reference r alee was not used to int erpret this result as normal/abnormal . [facility] CampusHbkkysnUFTICYWOWA1045-17-47 08:23:00 Test Item Value Reference Range Interpretation Comments Eosinophils (test code = 1.3 See_Comment [A utomated message] The Eosinophils) system which ge nerated this result tra nsmitted reference range : <=4.0. The reference r alee was not used to int erpret this result as normal/abnormal . [facility] CampusYgkfwrwACDAYGZJVL5045-14-14 08:23:00 Test Item Value Reference Range Interpretation Comments Retic Auto (test code = Retic Auto) 1.7 0.5-1.5 [facility] CenterOqphbfqBUXZOQ5142-34-03 08:23:00 Test Item Value Reference Range Interpretation Comments VLDL (test code = VLDL) 10 1 [facility] CenterRducirzUFJNGB1026-19-86 08:23:00 Test Item Value Reference Range Interpretation Comments CHD Risk (test code = CHD Risk) 3.94 1 3.90-5.80 [facility]WicxnnjQBKUUN6601-38-46 08:23:00 Test Item Value Reference Range Interpretation Comments HDL (test code = HDL) 50 [facility] CenterMednlizFVTCRK5915-81-79 08:23:00 Test Item Value Reference Range Interpretation Comments Trig (test code = Trig) 50 [facility] CenterMhgemloNSQXLP6317-19-99 08:23:00 Test Item Value Reference Range Interpretation Comments Chol (test code = Chol) 197 [facility] CenterRsmuudjCOZNCT5998-90-30 08:23:00 Test Item Value Reference Range Interpretation Comments LDL (Calculated) (test code = LDL 137 (Calculated)) [facility] WVFJYKTDX6366-77-40 08:23:00 Test Item Value Reference Range Interpretation Comments Hgb A1C (test code = Hgb A1C) 6.0 [facility] UUYSQ8460-97-82 08:23:00 Test Item Value Reference Range Interpretation Comments Iron (test code = Iron) 17 30-160 [facility]2019-05-11 08:23:00 Test Item Value Reference Range Interpretation Comments TIBC (test code = TIBC) 479 228-428 [facility]2019-05-11 08:23:00 Test Item Value Reference Range Interpretation Comments % Satur Fe (test code = % Satur Fe) 4 12-57 [facility]2019-05-11 08:23:00 Test Item Value Reference Range Interpretation Comments UIBC (test code = UIBC) 462 110-370 [facility]2019-05-11 08:23:00 Test Item Value Reference Range Interpretation Comments Ferritin Lvl (test code = Ferritin Lvl) 14 5-204 [facility]2019-05-11 08:23:00 Test Item Value Reference Range Interpretation Comments Vitamin B12 Lvl (test code = Vitamin [phone] B12 Lvl) [facility]2019-05-11 08:23:00 Test Item Value Reference Range Interpretation Comments Folate Lvl (test code = Folate Lvl) 7.4 [facility] EPMSEYL3684-38-97 08:23:00 Test Item Value Reference Range Interpretation Comments Troponin-I (test code no gt See_Comment [Auto mated message] The = Troponin-I) system which g enerated this result transmit kenroy reference range : <=0.40. The reference r alee was not used to interpr et this result as elton l/abnormal. [facility] CenterCHEM RREEO8853-64-09 08:23:00 Test Item Value Reference Range Interpretation Comments LDH (test code = LDH) 111 98-192 [facility] HospitalNyjpvvdVNVZRXRXCEDA7234-85-82 08:23:00 Test Item Value Reference Range Interpretation Comments CO2 (test code = CO2) 30 24-32 [facility] HospitalSbskyetFDILEJODTWLX5415-48-82 08:23:00 Test Item Value Reference Range Interpretation Comments Total Protein (test code = Total 7.3 6.4-8.4 Protein) [facility] HospitalXqsjibxVRMLNFLGQGKL7859-72-71 08:23:00 Test Item Value Reference Range Interpretation Comments Alk Phos (test code = Alk Phos) 116 39-136 [facility] HospitalMvwzyfyMWQMTBEXMEQQ6672-33-73 08:23:00 Test Item Value Reference Range Interpretation Comments B/C Ratio (test code = B/C Ratio) 18 1 6-25 [facility] HospitalTvtokqoBESBNWBDYJDE9162-81-00 08:23:00 Test Item Value Reference Range Interpretation Comments Calcium Lvl (test code = Calcium Lvl) 9.1 8.5-10.5 [facility] HospitalDsmwlahLGSRIALVHUVY8231-72-75 08:23:00 Test Item Value Reference Range Interpretation Comments AGAP (test code = AGAP) 10.8 10.0-20.0 [facility] HospitalJgdsofyJCXUTTFAUNSB5865-96-87 08:23:00 Test Item Value Reference Range Interpretation Comments AST (test code = AST) 8 See_Comment [Auto mated message] The system which ge nerated this result transmit kenroy reference range : <=37. The reference range was not used to interpr et this result as elton l/abnormal. [facility] HospitalBosxyghGUYSSPBWMAST0231-88-77 08:23:00 Test Item Value Reference Range Interpretation Comments ALT (test code = ALT) 14 See_Comment [Auto mated message] The system which ge nerated this result transmit kenroy reference range : <=65. The reference range was not used to interpr et this result as elton l/abnormal. [facility] HospitalBuctjotNUDHSRSCNIBC6997-37-00 08:23:00 Test Item Value Reference Range Interpretation Comments A/G Ratio (test code = A/G Ratio) 0.7 1 0.7-1.6 [facility] HospitalTnkxrjsFZPZSCUNZJKL3745-90-44 08:23:00 Test Item Value Reference Range Interpretation Comments Globulin (test code = Globulin) 4.3 2.7-4.2 [facility] HospitalHxkpvirDIMKZJUPGHYS2550-57-16 08:23:00 Test Item Value Reference Range Interpretation Comments Glucose Lvl (test code = Glucose Lvl) 110 70-99 [facility] HospitalCwcrimoHPXQEAVCXLGA8141-25-13 08:23:00 Test Item Value Reference Range Interpretation Comments Chloride Lvl (test code = Chloride Lvl) 99 95-109 [facility] HospitalXlhzadxZXLDQJYLXFEH6507-89-11 08:23:00 Test Item Value Reference Range Interpretation Comments Potassium Lvl (test code = Potassium 3.8 3.5-5.1 Lvl) [facility] HospitalHyvtqifCBKTHHBVUUPA8180-79-45 08:23:00 Test Item Value Reference Range Interpretation Comments Sodium Lvl (test code = Sodium Lvl) 136 135-145 [facility] HospitalSvohtteSYWEMMVHOJIE2670-32-08 08:23:00 Test Item Value Reference Range Interpretation Comments Creatinine Lvl (test code = Creatinine 0.79 0.50-1.40 Lvl) [facility] HospitalDacxvyrPTJFUKDMOELD4717-67-04 08:23:00 Test Item Value Reference Range Interpretation Comments BUN (test code = BUN) 14 7-22 [facility] HospitalYcybrjhAZMCYRSSFOPQ5085-76-01 08:23:00 Test Item Value Reference Range Interpretation Comments eGFR (test code = eGFR) 95 [facility] HospitalGgssldmAINIENFHIYLL3293-07-00 08:23:00 Test Item Value Reference Range Interpretation Comments Bili Total (test code = Bili Total) 0.3 0.2-1.3 [facility] HospitalPcuzcfnCNOAYAFLDYPS4096-94-30 08:23:00 Test Item Value Reference Range Interpretation Comments Albumin Lvl (test code = Albumin Lvl) 3.0 3.5-5.0 [facility] CampusNhhsmvgYIWSBZTPFT6155-32-31 08:23:00 Test Item Value Reference Range Interpretation Comments MCHC (test code = MCHC) 31.4 32.0-36.0 [facility] CampusOionsmmRQQTXIRXXT9849-84-22 08:23:00 Test Item Value Reference Range Interpretation Comments MCH (test code = MCH) 22.3 pg 27.0-31.0 [facility] CampusKqhgjxtFJJPOLDDCG7583-64-08 08:23:00 Test Item Value Reference Range Interpretation Comments MCV (test code = MCV) 71.1 80.0-98.0 [facility] CampusAqhqpqdWJLILUKQYD6489-67-84 08:23:00 Test Item Value Reference Range Interpretation Comments Hct (test code = Hct) 30.0 36.0-48.0 [facility] CampusKeczxinISSJTOJQYB6443-31-72 08:23:00 Test Item Value Reference Range Interpretation Comments Hgb (test code = Hgb) 9.4 12.0-16.0 [facility] CampusGxyoqmeUXFYFCWSOL2340-68-07 08:23:00 Test Item Value Reference Range Interpretation Comments Platelet (test code = Platelet) 309 133-450 [facility] CampusNxbizaaKTKRILNHNE5332-08-27 08:23:00 Test Item Value Reference Range Interpretation Comments RDW (test code = RDW) 17.4 11.5-14.5 [facility] CampusZncstwbHJQFILEPKN2796-28-90 08:23:00 Test Item Value Reference Range Interpretation Comments MPV (test code = MPV) 7.8 7.4-10.4 [facility] CampusIydpfddUHAKQCHFLW9699-05-63 08:23:00 Test Item Value Reference Range Interpretation Comments RBC (test code = RBC) 4.22 4.20-5.40 [facility] CampusKbkxrfiDDHIKTBYBM1910-73-81 08:23:00 Test Item Value Reference Range Interpretation Comments WBC (test code = WBC) 9.6 3.7-10.4 [facility] CampusPqcmbpiONKOCRPKAQ1561-36-65 08:23:00 Test Item Value Reference Range Interpretation Comments Eosinophils # (test code 0.1 See_Comment [A utomated message] The = Eosinophils #) system whic h generated this result tra nsmitted reference range : <=0.5. The reference r alee was not used to int erpret this result as normal/abnormal . [facility] CampusUhkcoktLSVDUVXYFG6409-85-61 08:23:00 Test Item Value Reference Range Interpretation Comments Monocytes # (test code 0.7 See_Comment [Aut omated message] The = Monocytes #) system which generated this result tra nsmitted reference range : <=0.8. The reference r alee was not used to int erpret this result as normal/abnormal . [facility] CampusJkynfpoANMALSCTML2851-59-09 08:23:00 Test Item Value Reference Range Interpretation Comments Lymphocytes # (test code = Lymphocytes 1.8 1.0-5.5 #) [facility] CampusNendwhcORGYTEKSDP7420-03-95 08:23:00 Test Item Value Reference Range Interpretation Comments Neutrophils # (test code = Neutrophils 6.8 1.5-8.1 #) [facility] CampusZzyvmmnIMWJSORXTR8069-08-51 08:23:00 Test Item Value Reference Range Interpretation Comments Basophils # (test code 0.1 See_Comment [Aut omated message] The = Basophils #) system which generated this result tra nsmitted reference range : <=0.2. The reference r alee was not used to int erpret this result as normal/abnormal . [facility] CampusKnaxsomMJABXKKOXY8129-03-44 08:23:00 Test Item Value Reference Range Interpretation Comments Microcyte (test code = 2+ *ABN*(07/30/18 Microcyte) 3:23 AM) [facility] CampusDzenwfzFISSOBMYQM1732-92-17 08:23:00 Test Item Value Reference Range Interpretation Comments Monocytes (test code = Monocytes) 7.3 2.0-12.0 [facility] CampusPumvndoCBMKITJULE7339-40-83 08:23:00 Test Item Value Reference Range Interpretation Comments Lymphocytes (test code = Lymphocytes) 18.8 20.0-40.0 [facility] CampusYrvmuecXFEZAOHJQU7971-36-12 08:23:00 Test Item Value Reference Range Interpretation Comments Segs (test code = Segs) 71.8 45.0-75.0 [facility] CampusCyyoxopBNSPFQUVIU8702-99-32 08:23:00 Test Item Value Reference Range Interpretation Comments Basophils (test code = 0.8 See_Comment [Aut omated message] The Basophils) system which ge nerated this result tra nsmitted reference range : <=1.0. The reference r alee was not used to int erpret this result as normal/abnormal . [facility] CampusGicjizgAPEFEHKCUP2562-83-42 08:23:00 Test Item Value Reference Range Interpretation Comments Eosinophils (test code = 1.3 See_Comment [A utomated message] The Eosinophils) system which ge nerated this result tra nsmitted reference range : <=4.0. The reference r alee was not used to int erpret this result as normal/abnormal . [id number] 08:23:00 Test Item Value Reference Range Interpretation Comments Retic Auto (test code = Retic Auto) 1.7 0.5-1.5 [id number] 08:23:00 Test Item Value Reference Range Interpretation Comments VLDL (test code = VLDL) 10 1 [id number] 08:23:00 Test Item Value Reference Range Interpretation Comments CHD Risk (test code = CHD Risk) 3.94 1 3.90-5.80 [id number] 08:23:00 Test Item Value Reference Range Interpretation Comments HDL (test code = HDL) 50 [id number] 08:23:00 Test Item Value Reference Range Interpretation Comments Trig (test code = Trig) 50 [facility] [id number] 08:23:00 Test Item Value Reference Range Interpretation Comments Chol (test code = Chol) 197 [facility] [id number] 08:23:00 Test Item Value Reference Range Interpretation Comments LDL (Calculated) (test code = LDL 137 (Calculated)) [facility] [id number] 08:23:00 Test Item Value Reference Range Interpretation Comments Hgb A1C (test code = Hgb A1C) 6.0 [facility] AND [id number] 06:20:00 Test Item Value Reference Range Interpretation Comments Occult Bld Stl (test Negative (07/30/18 1:20 code = Occult Bld Stl) AM) [facility] AND [id number] 06:20:00 Test Item Value Reference Range Interpretation Comments Occult Bld Stl (test Negative (07/30/18 1:20 code = Occult Bld Stl) AM) [facility] AND [id number] 06:20:00 Test Item Value Reference Range Interpretation Comments Occult Bld Stl (test Negative (07/30/18 1:20 code = Occult Bld Stl) AM) [facility] AND [id number] 06:20:00 Test Item Value Reference Range Interpretation Comments Occult Bld Stl (test Negative (07/30/18 1:20 code = Occult Bld Stl) AM) [facility] [id number] 05:10:00 Test Item Value Reference Range Interpretation Comments Troponin-I (test code no gt See_Comment [Auto mated message] The = Troponin-I) system which g enerated this result transmit kenroy reference range : <=0.40. The reference r alee was not used to interpr et this result as elton l/abnormal. [facility] CenterSentimentCHEM [id number] 05:10:00 Test Item Value Reference Range Interpretation Comments Lactic Acid Lvl (test code = Lactic 1.0 0.5-2.2 Acid Lvl) [facility] [id number] 05:10:00 Test Item Value Reference Range Interpretation Comments Phosphorus (test code = Phosphorus) 3.7 2.5-4.5 [facility] [id number] 05:10:00 Test Item Value Reference Range Interpretation Comments Magnesium Lvl (test code = Magnesium 1.8 1.8-2.4 Lvl) [facility] [id number] 05:10:00 Test Item Value Reference Range Interpretation Comments Troponin-I (test code no gt See_Comment [Auto mated message] The = Troponin-I) system which g enerated this result transmit kenroy reference range : <=0.40. The reference r alee was not used to interpr et this result as elton l/abnormal. [facility]2019-05-11 05:10:00 Test Item Value Reference Range Interpretation Comments Lactic Acid Lvl (test code = Lactic 1.0 0.5-2.2 Acid Lvl) [facility]2019-05-11 05:10:00 Test Item Value Reference Range Interpretation Comments Phosphorus (test code = Phosphorus) 3.7 2.5-4.5 [facility] CenterSwarm64 [id number] 05:10:00 Test Item Value Reference Range Interpretation Comments Magnesium Lvl (test code = Magnesium 1.8 1.8-2.4 Lvl) [facility] [id number] 05:10:00 Test Item Value Reference Range Interpretation Comments Troponin-I (test code no gt See_Comment [Auto mated message] The = Troponin-I) system which g enerated this result transmit kenroy reference range : <=0.40. The reference r alee was not used to interpr et this result as elton l/abnormal. [facility]2019-05-11 05:10:00 Test Item Value Reference Range Interpretation Comments Lactic Acid Lvl (test code = Lactic 1.0 0.5-2.2 Acid Lvl) [facility]2019-05-11 05:10:00 Test Item Value Reference Range Interpretation Comments Phosphorus (test code = Phosphorus) 3.7 2.5-4.5 [facility] Center[facility]64 [id number] 05:10:00 Test Item Value Reference Range Interpretation Comments Magnesium Lvl (test code = Magnesium 1.8 1.8-2.4 Lvl) [facility] [id number] 05:10:00 Test Item Value Reference Range Interpretation Comments Troponin-I (test code no gt See_Comment [Auto mated message] The = Troponin-I) system which g enerated this result transmit kenroy reference range : <=0.40. The reference r alee was not used to interpr et this result as elton l/abnormal. [facility]2019-05-11 05:10:00 Test Item Value Reference Range Interpretation Comments Lactic Acid Lvl (test code = Lactic 1.0 0.5-2.2 Acid Lvl) [facility]2019-05-11 05:10:00 Test Item Value Reference Range Interpretation Comments Phosphorus (test code = Phosphorus) 3.7 2.5-4.5 [facility]2019-05-11 05:10:00 Test Item Value Reference Range Interpretation Comments Magnesium Lvl (test code = Magnesium 1.8 1.8-2.4 Lvl) [facility] AND [id number] 02:04:00 Test Item Value Reference Range Interpretation Comments UA Color (test code = Yellow *NA*(07/29/18 UA Color) 9:04 PM) [facility] AND [id number] 02:04:00 Test Item Value Reference Range Interpretation Comments UA Turbidity (test code Slight *ABN*(07/29/18 = UA Turbidity) 9:04 PM) [facility] AND [id number] 02:04:00 Test Item Value Reference Range Interpretation Comments UA Nitrite (test code Negative (07/29/18 9:04 = UA Nitrite) PM) [facility] AND [id number] 02:04:00 Test Item Value Reference Range Interpretation Comments UA Leuk Est (test code Small *ABN*(07/29/18 = UA Leuk Est) 9:04 PM) [facility] AND [id number] 02:04:00 Test Item Value Reference Range Interpretation Comments UA Bili (test code = Negative *NA*(07/29/18 UA Bili) 9:04 PM) [facility] AND [id number] 02:04:00 Test Item Value Reference Range Interpretation Comments UA Blood (test code = Negative (07/29/18 9:04 UA Blood) PM) [facility] AND [id number] 02:04:00 Test Item Value Reference Range Interpretation Comments UA Urobilinogen (test code = UA 3.0 0.1-1.0 Urobilinogen) [facility] AND [id number] 02:04:00 Test Item Value Reference Range Interpretation Comments UA Protein (test code = UA Protein) 20 mg/dL [facility] AND [id number] 02:04:00 Test Item Value Reference Range Interpretation Comments UA Glucose (test code = UA Negative mg/dL Glucose) [facility] AND [id number] 02:04:00 Test Item Value Reference Range Interpretation Comments UA Ketones (test code = UA Negative mg/dL Ketones) [facility] AND [id number] 02:04:00 Test Item Value Reference Range Interpretation Comments UA Spec Grav (test code = UA Spec 1.026 1 Grav) [facility] AND [id number] 02:04:00 Test Item Value Reference Range Interpretation Comments UA pH (test code = UA pH) 6.5 1 5.0-8.0 [facility] AND [id number] 02:04:00 Test Item Value Reference Range Interpretation Comments UA Bacteria (test code = UA Occasional /HPF Bacteria) [facility] AND [id number] 02:04:00 Test Item Value Reference Range Interpretation Comments UA Mucus (test code = UA Mucus) Few /LPF [facility] AND [id number] 02:04:00 Test Item Value Reference Range Interpretation Comments UA RBC (test code = 3 See_Comment [Automa kenroy message] The UA RBC) system which ge nerated this result transmit kenroy reference range : <=2. The reference range was not used to interpr et this result as elton l/abnormal. [facility] AND [id number] 02:04:00 Test Item Value Reference Range Interpretation Comments UA Sq Epi (test code = UA Sq Epi) Many /LPF [facility] AND [id number] 02:04:00 Test Item Value Reference Range Interpretation Comments UA WBC (test code = 6 See_Comment [Automa kenroy message] The UA WBC) system which ge nerated this result transmit kenroy reference range : <=5. The reference range was not used to interpr et this result as elton l/abnormal. [facility] AND [id number] 02:04:00 Test Item Value Reference Range Interpretation Comments UA Hyal Cast (test 13 See_Comment [Automat ed message] The code = UA Hyal Cast) system which generated this result transmit kenroy reference range : <=2. The reference range was not used to interpr et this result as elton l/abnormal. [facility] AND [id number] 02:04:00 Test Item Value Reference Range Interpretation Comments UA Color (test code = Yellow *NA*(07/29/18 UA Color) 9:04 PM) [facility] AND [id number] 02:04:00 Test Item Value Reference Range Interpretation Comments UA Turbidity (test code Slight *ABN*(07/29/18 = UA Turbidity) 9:04 PM) [facility] AND [id number] 02:04:00 Test Item Value Reference Range Interpretation Comments UA Nitrite (test code Negative (07/29/18 9:04 = UA Nitrite) PM) [facility] AND [id number] 02:04:00 Test Item Value Reference Range Interpretation Comments UA Leuk Est (test code Small *ABN*(07/29/18 = UA Leuk Est) 9:04 PM) [facility] AND [id number] 02:04:00 Test Item Value Reference Range Interpretation Comments UA Bili (test code = Negative *NA*(07/29/18 UA Bili) 9:04 PM) [facility] AND [id number] 02:04:00 Test Item Value Reference Range Interpretation Comments UA Blood (test code = Negative (07/29/18 9:04 UA Blood) PM) [facility] AND [id number] 02:04:00 Test Item Value Reference Range Interpretation Comments UA Urobilinogen (test code = UA 3.0 0.1-1.0 Urobilinogen) [facility] AND [id number] 02:04:00 Test Item Value Reference Range Interpretation Comments UA Protein (test code = UA Protein) 20 mg/dL [facility] AND [id number] 02:04:00 Test Item Value Reference Range Interpretation Comments UA Glucose (test code = UA Negative mg/dL Glucose) [facility] AND [id number] 02:04:00 Test Item Value Reference Range Interpretation Comments UA Ketones (test code = UA Negative mg/dL Ketones) [facility] AND [id number] 02:04:00 Test Item Value Reference Range Interpretation Comments UA Spec Grav (test code = UA Spec 1.026 1 Grav) [facility] AND [id number] 02:04:00 Test Item Value Reference Range Interpretation Comments UA pH (test code = UA pH) 6.5 1 5.0-8.0 [facility] AND [id number] 02:04:00 Test Item Value Reference Range Interpretation Comments UA Bacteria (test code = UA Occasional /HPF Bacteria) [facility] AND [id number] 02:04:00 Test Item Value Reference Range Interpretation Comments UA Mucus (test code = UA Mucus) Few /LPF [facility] AND [id number] 02:04:00 Test Item Value Reference Range Interpretation Comments UA RBC (test code = 3 See_Comment [Automa kenroy message] The UA RBC) system which ge nerated this result transmit kenroy reference range : <=2. The reference range was not used to interpr et this result as elton l/abnormal. [facility] [id number] 02:04:00 Test Item Value Reference Range Interpretation Comments UA Sq Epi (test code = UA Sq Epi) Many /LPF [facility] AND [id number] 02:04:00 Test Item Value Reference Range Interpretation Comments UA WBC (test code = 6 See_Comment [Automa kenroy message] The UA WBC) system which ge nerated this result transmit kenroy reference range : <=5. The reference range was not used to interpr et this result as elton l/abnormal. [facility] AND [id number] 02:04:00 Test Item Value Reference Range Interpretation Comments UA Hyal Cast (test 13 See_Comment [Automat ed message] The code = UA Hyal Cast) system which generated this result transmit kenroy reference range : <=2. The reference range was not used to interpr et this result as elton l/abnormal. [facility] AND [id number] 02:04:00 Test Item Value Reference Range Interpretation Comments UA Color (test code = Yellow *NA*(07/29/18 UA Color) 9:04 PM) [facility] AND [id number] 02:04:00 Test Item Value Reference Range Interpretation Comments UA Turbidity (test code Slight *ABN*(07/29/18 = UA Turbidity) 9:04 PM) [facility] AND [id number] 02:04:00 Test Item Value Reference Range Interpretation Comments UA Nitrite (test code Negative (07/29/18 9:04 = UA Nitrite) PM) [facility] AND [id number] 02:04:00 Test Item Value Reference Range Interpretation Comments UA Leuk Est (test code Small *ABN*(07/29/18 = UA Leuk Est) 9:04 PM) [facility] AND [id number] 02:04:00 Test Item Value Reference Range Interpretation Comments UA Bili (test code = Negative *NA*(07/29/18 UA Bili) 9:04 PM) [facility] AND [id number] 02:04:00 Test Item Value Reference Range Interpretation Comments UA Blood (test code = Negative (07/29/18 9:04 UA Blood) PM) [facility] AND [id number] 02:04:00 Test Item Value Reference Range Interpretation Comments UA Urobilinogen (test code = UA 3.0 0.1-1.0 Urobilinogen) [facility] AND [id number] 02:04:00 Test Item Value Reference Range Interpretation Comments UA Protein (test code = UA Protein) 20 mg/dL [facility] AND [id number] 02:04:00 Test Item Value Reference Range Interpretation Comments UA Glucose (test code = UA Negative mg/dL Glucose) [facility] AND [id number] 02:04:00 Test Item Value Reference Range Interpretation Comments UA Ketones (test code = UA Negative mg/dL Ketones) [facility] AND [id number] 02:04:00 Test Item Value Reference Range Interpretation Comments UA Spec Grav (test code = UA Spec 1.026 1 Grav) [facility] AND [id number] 02:04:00 Test Item Value Reference Range Interpretation Comments UA pH (test code = UA pH) 6.5 1 5.0-8.0 [facility] AND [id number] 02:04:00 Test Item Value Reference Range Interpretation Comments UA Bacteria (test code = UA Occasional /HPF Bacteria) [facility] AND [id number] 02:04:00 Test Item Value Reference Range Interpretation Comments UA Mucus (test code = UA Mucus) Few /LPF [facility] AND [id number] 02:04:00 Test Item Value Reference Range Interpretation Comments UA RBC (test code = 3 See_Comment [Automa kenroy message] The UA RBC) system which ge nerated this result transmit kenroy reference range : <=2. The reference range was not used to interpr et this result as elton l/abnormal. [facility] AND [id number] 02:04:00 Test Item Value Reference Range Interpretation Comments UA Sq Epi (test code = UA Sq Epi) Many /LPF [facility] AND [id number] 02:04:00 Test Item Value Reference Range Interpretation Comments UA WBC (test code = 6 See_Comment [Automa kenroy message] The UA WBC) system which ge nerated this result transmit kenroy reference range : <=5. The reference range was not used to interpr et this result as elton l/abnormal. [facility] AND [id number] 02:04:00 Test Item Value Reference Range Interpretation Comments UA Hyal Cast (test 13 See_Comment [Automat ed message] The code = UA Hyal Cast) system which generated this result transmit kenroy reference range : <=2. The reference range was not used to interpr et this result as elton l/abnormal. [facility] AND [id number] 02:04:00 Test Item Value Reference Range Interpretation Comments UA Nitrite (test code Negative (07/29/18 9:04 = UA Nitrite) PM) [facility] AND [id number] 02:04:00 Test Item Value Reference Range Interpretation Comments UA Leuk Est (test code Small *ABN*(07/29/18 = UA Leuk Est) 9:04 PM) [facility] AND [id number] 02:04:00 Test Item Value Reference Range Interpretation Comments UA Bili (test code = Negative *NA*(07/29/18 UA Bili) 9:04 PM) [facility] AND [id number] 02:04:00 Test Item Value Reference Range Interpretation Comments UA Blood (test code = Negative (07/29/18 9:04 UA Blood) PM) [facility] AND [id number] 02:04:00 Test Item Value Reference Range Interpretation Comments UA Urobilinogen (test code = UA 3.0 0.1-1.0 Urobilinogen) [facility] AND [id number] 02:04:00 Test Item Value Reference Range Interpretation Comments UA Protein (test code = UA Protein) 20 mg/dL [facility] AND [id number] 02:04:00 Test Item Value Reference Range Interpretation Comments UA Glucose (test code = UA Negative mg/dL Glucose) [facility] AND [id number] 02:04:00 Test Item Value Reference Range Interpretation Comments UA Ketones (test code = UA Negative mg/dL Ketones) [facility] AND [id number] 02:04:00 Test Item Value Reference Range Interpretation Comments UA Spec Grav (test code = UA Spec 1.026 1 Grav) [facility] AND [id number] 02:04:00 Test Item Value Reference Range Interpretation Comments UA pH (test code = UA pH) 6.5 1 5.0-8.0 [facility] AND [id number] 02:04:00 Test Item Value Reference Range Interpretation Comments UA Bacteria (test code = UA Occasional /HPF Bacteria) [facility] AND [id number] 02:04:00 Test Item Value Reference Range Interpretation Comments UA Mucus (test code = UA Mucus) Few /LPF [facility] AND [id number] 02:04:00 Test Item Value Reference Range Interpretation Comments UA RBC (test code = 3 See_Comment [Automa kenroy message] The UA RBC) system which ge nerated this result transmit kenroy reference range : <=2. The reference range was not used to interpr et this result as elton l/abnormal. [facility] AND [id number] 02:04:00 Test Item Value Reference Range Interpretation Comments UA Sq Epi (test code = UA Sq Epi) Many /LPF [facility] AND [id number] 02:04:00 Test Item Value Reference Range Interpretation Comments UA WBC (test code = 6 See_Comment [Automa kenroy message] The UA WBC) system which ge nerated this result transmit kenroy reference range : <=5. The reference range was not used to interpr et this result as elton l/abnormal. [facility] AND [id number] 02:04:00 Test Item Value Reference Range Interpretation Comments UA Hyal Cast (test 13 See_Comment [Automat ed message] The code = UA Hyal Cast) system which generated this result transmit kenroy reference range : <=2. The reference range was not used to interpr et this result as elton l/abnormal. [facility] AND [id number] 02:04:00 Test Item Value Reference Range Interpretation Comments UA Color (test code = Yellow *NA*(07/29/18 UA Color) 9:04 PM) [facility] AND [id number] 02:04:00 Test Item Value Reference Range Interpretation Comments UA Turbidity (test code Slight *ABN*(07/29/18 = UA Turbidity) 9:04 PM) [place] [id number] 01:34:00 Test Item Value Reference Range Interpretation Comments Grp A Strep Scr (test Positive 3*ABN*(07/29/18 code = Grp A Strep 8:34 PM) Scr) [place] [id number] 01:34:00 Test Item Value Reference Range Interpretation Comments Grp A Strep Scr (test Positive 3*ABN*(07/29/18 code = Grp A Strep 8:34 PM) Scr) [place] [id number] 01:34:00 Test Item Value Reference Range Interpretation Comments Grp A Strep Scr (test Positive 3*ABN*(07/29/18 code = Grp A Strep 8:34 PM) Scr) [place] [id number] 01:34:00 Test Item Value Reference Range Interpretation Comments Grp A Strep Scr (test Positive 3*ABN*(07/29/18 code = Grp A Strep 8:34 PM) Scr) [facility] [id number] 01:30:00 Test Item Value Reference Range Interpretation Comments BNP (test code = BNP) 44 [facility] [id number] 01:30:00 Test Item Value Reference Range Interpretation Comments Total CK (test code = Total CK) 34 12-191 [facility] [id number] 01:30:00 Test Item Value Reference Range Interpretation Comments Troponin-I (test code no gt See_Comment [Auto mated message] The = Troponin-I) system which g enerated this result transmit kenroy reference range : <=0.40. The reference r alee was not used to interpr et this result as elton l/abnormal. [facility]2019-05-11 01:30:00 Test Item Value Reference Range Interpretation Comments Lactic Acid Lvl (test code = Lactic 2.8 0.5-2.2 Acid Lvl) [place] [id number] 01:30:00 Test Item Value Reference Range Interpretation Comments Lipase Lvl (test code = Lipase Lvl) 131 73-393 [facility]2019-05-11 01:30:00 Test Item Value Reference Range Interpretation Comments Magnesium Lvl (test code = Magnesium 1.8 1.8-2.4 Lvl) [facility]2019-05-11 01:30:00 Test Item Value Reference Range Interpretation Comments Globulin (test code = Globulin) 4.5 2.7-4.2 [place] [id number] 01:30:00 Test Item Value Reference Range Interpretation Comments AGAP (test code = AGAP) 12.5 10.0-20.0 [place] [id number] 01:30:00 Test Item Value Reference Range Interpretation Comments A/G Ratio (test code = A/G Ratio) 0.7 1 0.7-1.6 [place] [id number] 01:30:00 Test Item Value Reference Range Interpretation Comments B/C Ratio (test code = B/C Ratio) 13 1 6-25 [place] [id number] 01:30:00 Test Item Value Reference Range Interpretation Comments eGFR (test code = eGFR) 65 [facility]2019-05-11 01:30:00 Test Item Value Reference Range Interpretation Comments Alk Phos (test code = Alk Phos) 127 39-136 [facility]2019-05-11 01:30:00 Test Item Value Reference Range Interpretation Comments Bili Total (test code = Bili Total) 0.4 0.2-1.3 [place] [id number] 01:30:00 Test Item Value Reference Range Interpretation Comments ALT (test code = ALT) 14 See_Comment [Auto mated message] The system which ge nerated this result transmit kenroy reference range : <=65. The reference range was not used to interpr et this result as elton l/abnormal. [facility]2019-05-11 01:30:00 Test Item Value Reference Range Interpretation Comments AST (test code = AST) 8 See_Comment [Auto mated message] The system which ge nerated this result transmit kenroy reference range : <=37. The reference range was not used to interpr et this result as elton l/abnormal. [facility]2019-05-11 01:30:00 Test Item Value Reference Range Interpretation Comments Albumin Lvl (test code = Albumin Lvl) 3.2 3.5-5.0 [facility]2019-05-11 01:30:00 Test Item Value Reference Range Interpretation Comments Creatinine Lvl (test code = Creatinine 1.09 0.50-1.40 Lvl) [facility]2019-05-11 01:30:00 Test Item Value Reference Range Interpretation Comments Sodium Lvl (test code = Sodium Lvl) 136 135-145 [facility]2019-05-11 01:30:00 Test Item Value Reference Range Interpretation Comments Potassium Lvl (test code = Potassium 3.5 3.5-5.1 Lvl) [facility]2019-05-11 01:30:00 Test Item Value Reference Range Interpretation Comments Chloride Lvl (test code = Chloride Lvl) 100 95-109 [facility]2019-05-11 01:30:00 Test Item Value Reference Range Interpretation Comments Total Protein (test code = Total 7.7 6.4-8.4 Protein) [facility]2019-05-11 01:30:00 Test Item Value Reference Range Interpretation Comments Glucose Lvl (test code = Glucose Lvl) 122 70-99 [facility]2019-05-11 01:30:00 Test Item Value Reference Range Interpretation Comments BUN (test code = BUN) 14 7-22 [facility]2019-05-11 01:30:00 Test Item Value Reference Range Interpretation Comments Calcium Lvl (test code = Calcium Lvl) 9.3 8.5-10.5 [facility]2019-05-11 01:30:00 Test Item Value Reference Range Interpretation Comments CO2 (test code = CO2) 27 24-32 [facility]jjscxqYMZPHZKMHN3461-[facility]-49 01:30:00 Test Item Value Reference Range Interpretation Comments Eosinophils # (test code 0.1 See_Comment [A utomated message] The = Eosinophils #) system whic h generated this result tra nsmitted reference range : <=0.5. The reference r alee was not used to int erpret this result as normal/abnormal . [facility] CampusJardrmtZOLBELIXFO5021-79-76 01:30:00 Test Item Value Reference Range Interpretation Comments Microcyte (test code = 2+ *ABN*(07/29/18 Microcyte) 8:30 PM) [facility] CampusQzgenllQLKQENTIIG6530-26-01 01:30:00 Test Item Value Reference Range Interpretation Comments Neutrophils # (test code = Neutrophils 9.1 1.5-8.1 #) [facility] CampusLpjinrjTTUZWFMJXU2455-79-51 01:30:00 Test Item Value Reference Range Interpretation Comments Lymphocytes # (test code = Lymphocytes 1.3 1.0-5.5 #) [facility] CampusTqjsuqmBZMNVYYTJC0550-09-79 01:30:00 Test Item Value Reference Range Interpretation Comments Monocytes # (test code 0.7 See_Comment [Aut omated message] The = Monocytes #) system which generated this result tra nsmitted reference range : <=0.8. The reference r alee was not used to int erpret this result as normal/abnormal . [facility] CampusQcbzrckJWUIHMEJVB2672-50-39 01:30:00 Test Item Value Reference Range Interpretation Comments Segs (test code = Segs) 81.3 45.0-75.0 [facility] CampusFltmzewYSJCFVKIZJ5920-58-42 01:30:00 Test Item Value Reference Range Interpretation Comments Lymphocytes (test code = Lymphocytes) 11.3 20.0-40.0 [facility] CampusWavnkwdPXCEVLCIMR4098-08-20 01:30:00 Test Item Value Reference Range Interpretation Comments Monocytes (test code = Monocytes) 6.3 2.0-12.0 [facility] CampusUdndcwzIEXGLKEEHC5340-53-16 01:30:00 Test Item Value Reference Range Interpretation Comments Eosinophils (test code = 0.7 See_Comment [A utomated message] The Eosinophils) system which ge nerated this result tra nsmitted reference range : <=4.0. The reference r alee was not used to int erpret this result as normal/abnormal . [facility] CampusPwnuzjnQHRKMBZQIA6699-00-46 01:30:00 Test Item Value Reference Range Interpretation Comments Basophils (test code = 0.4 See_Comment [Aut omated message] The Basophils) system which ge nerated this result tra nsmitted reference range : <=1.0. The reference r alee was not used to int erpret this result as normal/abnormal . [facility] CampusJuovnmoWSQHPSDULV4680-98-98 01:30:00 Test Item Value Reference Range Interpretation Comments PTT (test code = PTT) 32.2 s 22.9-35.8 [facility] CampusUagmlbrBHZHDYJXND1775-68-21 01:30:00 Test Item Value Reference Range Interpretation Comments INR (test code = INR) 1.08 1 0.85-1.17 [facility] CampusFrtojqsEHTRBKNBDA5835-88-95 01:30:00 Test Item Value Reference Range Interpretation Comments PT (test code = PT) 13.8 s 12.0-14.7 [facility] CampusNzivsjyRESQZXKARM7303-51-68 01:30:00 Test Item Value Reference Range Interpretation Comments Hct (test code = Hct) 30.3 36.0-48.0 [facility] CampusLubhofbQFQDHQDDEL0441-64-94 01:30:00 Test Item Value Reference Range Interpretation Comments Platelet (test code = Platelet) 372 133-450 [facility] CampusVclqxahAUYEZRYKQU5577-00-95 01:30:00 Test Item Value Reference Range Interpretation Comments RDW (test code = RDW) 17.1 11.5-14.5 [facility] CampusAfhwjooXUXGCRHCGU8330-07-27 01:30:00 Test Item Value Reference Range Interpretation Comments MCH (test code = MCH) 22.5 pg 27.0-31.0 [facility] CampusUxvyjlyTXDACIUWEJ7396-12-41 01:30:00 Test Item Value Reference Range Interpretation Comments MCV (test code = MCV) 70.9 80.0-98.0 [facility] CampusKjdgvbzCFUFQYVKMG1922-28-47 01:30:00 Test Item Value Reference Range Interpretation Comments MPV (test code = MPV) 8.1 7.4-10.4 [facility] CampusVxhtkqoSQOFDNLSFY5918-93-47 01:30:00 Test Item Value Reference Range Interpretation Comments MCHC (test code = MCHC) 31.7 32.0-36.0 [facility] CampusWyedbzhENJOENKPDR0132-51-22 01:30:00 Test Item Value Reference Range Interpretation Comments Hgb (test code = Hgb) 9.6 12.0-16.0 [facility] CampusUhqlwyuDTMUZPZDDV1521-91-33 01:30:00 Test Item Value Reference Range Interpretation Comments WBC (test code = WBC) 11.3 3.7-10.4 [facility] CampusHxhgvfuCZQDMLYCAR1766-34-32 01:30:00 Test Item Value Reference Range Interpretation Comments RBC (test code = RBC) 4.27 4.20-5.40 [facility] TVVQCDE8856-81-95 01:30:00 Test Item Value Reference Range Interpretation Comments BNP (test code = BNP) 44 [facility] EZDELHC2108-63-65 01:30:00 Test Item Value Reference Range Interpretation Comments Total CK (test code = Total CK) 34 12-191 [facility] CAKZWAE3884-70-04 01:30:00 Test Item Value Reference Range Interpretation Comments Troponin-I (test code no gt See_Comment [Auto mated message] The = Troponin-I) system which g enerated this result transmit kenroy reference range : <=0.40. The reference r alee was not used to interpr et this result as elton l/abnormal. [facility] CenterSwarm64 FXWQK6603-32-90 01:30:00 Test Item Value Reference Range Interpretation Comments Lactic Acid Lvl (test code = Lactic 2.8 0.5-2.2 Acid Lvl) [facility]2019-05-11 01:30:00 Test Item Value Reference Range Interpretation Comments Lipase Lvl (test code = Lipase Lvl) 131 73-393 [facility]2019-05-11 01:30:00 Test Item Value Reference Range Interpretation Comments Magnesium Lvl (test code = Magnesium 1.8 1.8-2.4 Lvl) [facility]2019-05-11 01:30:00 Test Item Value Reference Range Interpretation Comments Globulin (test code = Globulin) 4.5 2.7-4.2 [facility]2019-05-11 01:30:00 Test Item Value Reference Range Interpretation Comments AGAP (test code = AGAP) 12.5 10.0-20.0 [facility]2019-05-11 01:30:00 Test Item Value Reference Range Interpretation Comments A/G Ratio (test code = A/G Ratio) 0.7 1 0.7-1.6 [place] 829759-05-11 01:30:00 Test Item Value Reference Range Interpretation Comments B/C Ratio (test code = B/C Ratio) 13 1 6-25 [place] 829759-05-11 01:30:00 Test Item Value Reference Range Interpretation Comments eGFR (test code = eGFR) 65 [place] 829759-05-11 01:30:00 Test Item Value Reference Range Interpretation Comments Alk Phos (test code = Alk Phos) 127 39-136 [place] 829759-05-11 01:30:00 Test Item Value Reference Range Interpretation Comments Bili Total (test code = Bili Total) 0.4 0.2-1.3 [place] 829759-05-11 01:30:00 Test Item Value Reference Range Interpretation Comments ALT (test code = ALT) 14 See_Comment [Auto mated message] The system which ge nerated this result transmit kenroy reference range : <=65. The reference range was not used to interpr et this result as elton l/abnormal. [facility]2019-05-11 01:30:00 Test Item Value Reference Range Interpretation Comments AST (test code = AST) 8 See_Comment [Auto mated message] The system which ge nerated this result transmit kenroy reference range : <=37. The reference range was not used to interpr et this result as elton l/abnormal. [facility]2019-05-11 01:30:00 Test Item Value Reference Range Interpretation Comments Albumin Lvl (test code = Albumin Lvl) 3.2 3.5-5.0 [facility]2019-05-11 01:30:00 Test Item Value Reference Range Interpretation Comments Creatinine Lvl (test code = Creatinine 1.09 0.50-1.40 Lvl) [facility]2019-05-11 01:30:00 Test Item Value Reference Range Interpretation Comments Sodium Lvl (test code = Sodium Lvl) 136 135-145 [facility]2019-05-11 01:30:00 Test Item Value Reference Range Interpretation Comments Potassium Lvl (test code = Potassium 3.5 3.5-5.1 Lvl) [place] 829759-05-11 01:30:00 Test Item Value Reference Range Interpretation Comments Chloride Lvl (test code = Chloride Lvl) 100 95-109 [facility]2019-05-11 01:30:00 Test Item Value Reference Range Interpretation Comments Total Protein (test code = Total 7.7 6.4-8.4 Protein) [facility]2019-05-11 01:30:00 Test Item Value Reference Range Interpretation Comments Glucose Lvl (test code = Glucose Lvl) 122 70-99 [facility]2019-05-11 01:30:00 Test Item Value Reference Range Interpretation Comments BUN (test code = BUN) 14 7-22 [facility]2019-05-11 01:30:00 Test Item Value Reference Range Interpretation Comments Calcium Lvl (test code = Calcium Lvl) 9.3 8.5-10.5 [facility]2019-05-11 01:30:00 Test Item Value Reference Range Interpretation Comments CO2 (test code = CO2) 27 24-32 [facility] CampusKyprpqpOTEUQSDJPE8531-58-55 01:30:00 Test Item Value Reference Range Interpretation Comments Eosinophils # (test code 0.1 See_Comment [A utomated message] The = Eosinophils #) system whic h generated this result tra nsmitted reference range : <=0.5. The reference r alee was not used to int erpret this result as normal/abnormal . [facility] CampusLtzrgqfFCAPHSMPCX2536-44-65 01:30:00 Test Item Value Reference Range Interpretation Comments Microcyte (test code = 2+ *ABN*(07/29/18 Microcyte) 8:30 PM) [facility] CampusPbungdlXEQCUFICBS7614-56-49 01:30:00 Test Item Value Reference Range Interpretation Comments Neutrophils # (test code = Neutrophils 9.1 1.5-8.1 #) [facility] CampusEroavevFHUPPZVUBX6493-62-30 01:30:00 Test Item Value Reference Range Interpretation Comments Lymphocytes # (test code = Lymphocytes 1.3 1.0-5.5 #) [facility] CampusDdjxjzeHHWHQIPYDB5376-09-13 01:30:00 Test Item Value Reference Range Interpretation Comments Monocytes # (test code 0.7 See_Comment [Aut omated message] The = Monocytes #) system which generated this result tra nsmitted reference range : <=0.8. The reference r alee was not used to int erpret this result as normal/abnormal . [facility] CampusYcqvulrABNPRBEVMH2779-83-90 01:30:00 Test Item Value Reference Range Interpretation Comments Segs (test code = Segs) 81.3 45.0-75.0 [facility] CampusWfvrkfjEBKZMPLQRQ0385-83-19 01:30:00 Test Item Value Reference Range Interpretation Comments Lymphocytes (test code = Lymphocytes) 11.3 20.0-40.0 [facility] CampusZvammtoOEUDNPQEKP3938-50-96 01:30:00 Test Item Value Reference Range Interpretation Comments Monocytes (test code = Monocytes) 6.3 2.0-12.0 [facility] CampusHsrjumwXTTEXVXOXE5089-00-23 01:30:00 Test Item Value Reference Range Interpretation Comments Eosinophils (test code = 0.7 See_Comment [A utomated message] The Eosinophils) system which ge nerated this result tra nsmitted reference range : <=4.0. The reference r alee was not used to int erpret this result as normal/abnormal . [facility] CampusLgszuhdYXRTZEXSGN9039-42-51 01:30:00 Test Item Value Reference Range Interpretation Comments Basophils (test code = 0.4 See_Comment [Aut omated message] The Basophils) system which ge nerated this result tra nsmitted reference range : <=1.0. The reference r alee was not used to int erpret this result as normal/abnormal . [facility] CampusBvuugocZKLDFAAHVT9556-04-69 01:30:00 Test Item Value Reference Range Interpretation Comments PTT (test code = PTT) 32.2 s 22.9-35.8 [facility] CampusTpsknzmBDSYMBPNKJ4947-01-67 01:30:00 Test Item Value Reference Range Interpretation Comments INR (test code = INR) 1.08 1 0.85-1.17 [facility] CampusRbhkjzyWEWKLAEDLJ4979-83-91 01:30:00 Test Item Value Reference Range Interpretation Comments PT (test code = PT) 13.8 s 12.0-14.7 [facility] CampusLatzqqkDQHAOOYXOG8035-43-28 01:30:00 Test Item Value Reference Range Interpretation Comments Hct (test code = Hct) 30.3 36.0-48.0 [facility] CampusHarsvseIIFGFCPZBD7614-89-79 01:30:00 Test Item Value Reference Range Interpretation Comments Platelet (test code = Platelet) 372 133-450 [facility] CampusTzynumxUWQTCIIAEO2652-47-25 01:30:00 Test Item Value Reference Range Interpretation Comments RDW (test code = RDW) 17.1 11.5-14.5 [facility] CenterCaodoaqZFLBZYWMXJ4746-74-83 01:30:00 Test Item Value Reference Range Interpretation Comments MCH (test code = MCH) 22.5 pg 27.0-31.0 [facility] CenterTyfkofaYAHVLKFHIK5837-91-95 01:30:00 Test Item Value Reference Range Interpretation Comments MCV (test code = MCV) 70.9 80.0-98.0 [facility] CenterUfzcpwpLTUYNXPWXT5831-07-62 01:30:00 Test Item Value Reference Range Interpretation Comments MPV (test code = MPV) 8.1 7.4-10.4 [facility] CenterEvfchalRYHOOUOABK2489-66-12 01:30:00 Test Item Value Reference Range Interpretation Comments MCHC (test code = MCHC) 31.7 32.0-36.0 [facility] CenterZldhnkgQYFGGVWYEP7045-43-61 01:30:00 Test Item Value Reference Range Interpretation Comments Hgb (test code = Hgb) 9.6 12.0-16.0 [facility] CenterVfizdmkYZKERWFNHU1839-25-26 01:30:00 Test Item Value Reference Range Interpretation Comments WBC (test code = WBC) 11.3 3.7-10.4 [facility] CenterXewsajnCLSGZTRBLB8640-78-53 01:30:00 Test Item Value Reference Range Interpretation Comments RBC (test code = RBC) 4.27 4.20-5.40 [facility] CenterannCARDIAC VIWHWGO6748-71-25 01:30:00 Test Item Value Reference Range Interpretation Comments BNP (test code = BNP) 44 [facility] CenterCARD[facility]AC CSJRQME8343-54-64 01:30:00 Test Item Value Reference Range Interpretation Comments Total CK (test code = Total CK) 34 12-191 [facility] CenterCARD[facility]AC MOZLBBC3927-01-19 01:30:00 Test Item Value Reference Range Interpretation Comments Troponin-I (test code no gt See_Comment [Auto mated message] The = Troponin-I) system which g enerated this result transmit kenroy reference range : <=0.40. The reference r alee was not used to interpr et this result as elton l/abnormal. [facility] CenterSentimentCHEM RWYNF1886-46-56 01:30:00 Test Item Value Reference Range Interpretation Comments Lactic Acid Lvl (test code = Lactic 2.8 0.5-2.2 Acid Lvl) [facility]2019-05-11 01:30:00 Test Item Value Reference Range Interpretation Comments Lipase Lvl (test code = Lipase Lvl) 131 73-393 [facility]2019-05-11 01:30:00 Test Item Value Reference Range Interpretation Comments Magnesium Lvl (test code = Magnesium 1.8 1.8-2.4 Lvl) [facility]2019-05-11 01:30:00 Test Item Value Reference Range Interpretation Comments Globulin (test code = Globulin) 4.5 2.7-4.2 [facility]2019-05-11 01:30:00 Test Item Value Reference Range Interpretation Comments AGAP (test code = AGAP) 12.5 10.0-20.0 [facility]2019-05-11 01:30:00 Test Item Value Reference Range Interpretation Comments A/G Ratio (test code = A/G Ratio) 0.7 1 0.7-1.6 [place] 829759-05-11 01:30:00 Test Item Value Reference Range Interpretation Comments B/C Ratio (test code = B/C Ratio) 13 1 6-25 [place] 829759-05-11 01:30:00 Test Item Value Reference Range Interpretation Comments eGFR (test code = eGFR) 65 [facility]2019-05-11 01:30:00 Test Item Value Reference Range Interpretation Comments Alk Phos (test code = Alk Phos) 127 39-136 [facility]2019-05-11 01:30:00 Test Item Value Reference Range Interpretation Comments Bili Total (test code = Bili Total) 0.4 0.2-1.3 [place] 829759-05-11 01:30:00 Test Item Value Reference Range Interpretation Comments ALT (test code = ALT) 14 See_Comment [Auto mated message] The system which ge nerated this result transmit kenroy reference range : <=65. The reference range was not used to interpr et this result as elton l/abnormal. [facility]2019-05-11 01:30:00 Test Item Value Reference Range Interpretation Comments AST (test code = AST) 8 See_Comment [Auto mated message] The system which ge nerated this result transmit kenroy reference range : <=37. The reference range was not used to interpr et this result as elton l/abnormal. [place] 829759-05-11 01:30:00 Test Item Value Reference Range Interpretation Comments Albumin Lvl (test code = Albumin Lvl) 3.2 3.5-5.0 [facility]2019-05-11 01:30:00 Test Item Value Reference Range Interpretation Comments Creatinine Lvl (test code = Creatinine 1.09 0.50-1.40 Lvl) [facility]2019-05-11 01:30:00 Test Item Value Reference Range Interpretation Comments Sodium Lvl (test code = Sodium Lvl) 136 135-145 [facility]2019-05-11 01:30:00 Test Item Value Reference Range Interpretation Comments Potassium Lvl (test code = Potassium 3.5 3.5-5.1 Lvl) [facility]2019-05-11 01:30:00 Test Item Value Reference Range Interpretation Comments Chloride Lvl (test code = Chloride Lvl) 100 95-109 [facility]2019-05-11 01:30:00 Test Item Value Reference Range Interpretation Comments Total Protein (test code = Total 7.7 6.4-8.4 Protein) [facility]2019-05-11 01:30:00 Test Item Value Reference Range Interpretation Comments Glucose Lvl (test code = Glucose Lvl) 122 70-99 [facility]2019-05-11 01:30:00 Test Item Value Reference Range Interpretation Comments BUN (test code = BUN) 14 7-22 [facility]2019-05-11 01:30:00 Test Item Value Reference Range Interpretation Comments Calcium Lvl (test code = Calcium Lvl) 9.3 8.5-10.5 [facility]2019-05-11 01:30:00 Test Item Value Reference Range Interpretation Comments CO2 (test code = CO2) 27 24-32 [facility]SfospwgKRWBCBMVPD1470-70-53 01:30:00 Test Item Value Reference Range Interpretation Comments Eosinophils # (test code 0.1 See_Comment [A utomated message] The = Eosinophils #) system whic h generated this result tra nsmitted reference range : <=0.5. The reference r alee was not used to int erpret this result as normal/abnormal . [facility] CampusHmfpasjDLHQRKLITO4800-70-04 01:30:00 Test Item Value Reference Range Interpretation Comments Microcyte (test code = 2+ *ABN*(07/29/18 Microcyte) 8:30 PM) [facility] CampusDbifeqtPMMCIQUPQD0238-29-09 01:30:00 Test Item Value Reference Range Interpretation Comments Neutrophils # (test code = Neutrophils 9.1 1.5-8.1 #) [facility] CampusEagcxsvPZKZHQUXZV5599-45-65 01:30:00 Test Item Value Reference Range Interpretation Comments Lymphocytes # (test code = Lymphocytes 1.3 1.0-5.5 #) [facility] CampusGyqhetaBUHHBEHWON1413-81-13 01:30:00 Test Item Value Reference Range Interpretation Comments Monocytes # (test code 0.7 See_Comment [Aut omated message] The = Monocytes #) system which generated this result tra nsmitted reference range : <=0.8. The reference r alee was not used to int erpret this result as normal/abnormal . [facility] CampusIwgqigdACSAJPKUFI1631-52-34 01:30:00 Test Item Value Reference Range Interpretation Comments Segs (test code = Segs) 81.3 45.0-75.0 [facility] CampusNymboryDWZSZEGGFJ2416-62-33 01:30:00 Test Item Value Reference Range Interpretation Comments Lymphocytes (test code = Lymphocytes) 11.3 20.0-40.0 [facility] CampusKqeurhsADKNHCWQJA3443-76-35 01:30:00 Test Item Value Reference Range Interpretation Comments Monocytes (test code = Monocytes) 6.3 2.0-12.0 [facility] CampusFuonbtdQIPVVVUQEX4832-79-32 01:30:00 Test Item Value Reference Range Interpretation Comments Eosinophils (test code = 0.7 See_Comment [A utomated message] The Eosinophils) system which ge nerated this result tra nsmitted reference range : <=4.0. The reference r alee was not used to int erpret this result as normal/abnormal . [facility] CampusTehjxjvNQWTUDGNDD5465-21-32 01:30:00 Test Item Value Reference Range Interpretation Comments Basophils (test code = 0.4 See_Comment [Aut omated message] The Basophils) system which ge nerated this result tra nsmitted reference range : <=1.0. The reference r alee was not used to int erpret this result as normal/abnormal . [facility] CampusTitgxglCZAGHFARNZ4606-53-42 01:30:00 Test Item Value Reference Range Interpretation Comments PTT (test code = PTT) 32.2 s 22.9-35.8 [facility] CampusKynighsOCRBRWRSYW0128-20-66 01:30:00 Test Item Value Reference Range Interpretation Comments INR (test code = INR) 1.08 1 0.85-1.17 [facility] CampusCqzjxpoEKVLPHNQGX9967-09-07 01:30:00 Test Item Value Reference Range Interpretation Comments PT (test code = PT) 13.8 s 12.0-14.7 [facility] CampusKyjlbkxQJOPTERDEP1050-32-71 01:30:00 Test Item Value Reference Range Interpretation Comments Hct (test code = Hct) 30.3 36.0-48.0 [facility] CampusCuqxkxeKPDIIFODFS7075-22-58 01:30:00 Test Item Value Reference Range Interpretation Comments Platelet (test code = Platelet) 372 133-450 [facility] CampusIemqlaqXQRDDBQDRO7617-44-20 01:30:00 Test Item Value Reference Range Interpretation Comments RDW (test code = RDW) 17.1 11.5-14.5 [facility] CampusHiudqwsFKGHFVQEDG3983-90-42 01:30:00 Test Item Value Reference Range Interpretation Comments MCH (test code = MCH) 22.5 pg 27.0-31.0 [facility] CampusNbsjojrCFDCPLVTIV7242-71-28 01:30:00 Test Item Value Reference Range Interpretation Comments MCV (test code = MCV) 70.9 80.0-98.0 [facility] CampusCaslikxOBXTSJPMNB3973-30-09 01:30:00 Test Item Value Reference Range Interpretation Comments MPV (test code = MPV) 8.1 7.4-10.4 [facility] CampusMicrxbmIERRZFGMTU5661-17-70 01:30:00 Test Item Value Reference Range Interpretation Comments MCHC (test code = MCHC) 31.7 32.0-36.0 [facility] CampusGiqsndeIZLPEZHPTP3170-86-80 01:30:00 Test Item Value Reference Range Interpretation Comments Hgb (test code = Hgb) 9.6 12.0-16.0 [facility] CampusLwyreykQOOZCLDEMC8464-21-79 01:30:00 Test Item Value Reference Range Interpretation Comments WBC (test code = WBC) 11.3 3.7-10.4 [facility] CampusZrenfbpSHECPCHEWF4715-88-75 01:30:00 Test Item Value Reference Range Interpretation Comments RBC (test code = RBC) 4.27 4.20-5.40 [facility] [id number] 01:30:00 Test Item Value Reference Range Interpretation Comments BNP (test code = BNP) 44 [facility] [id number] 01:30:00 Test Item Value Reference Range Interpretation Comments Total CK (test code = Total CK) 34 12-191 [facility] [id number] 01:30:00 Test Item Value Reference Range Interpretation Comments Troponin-I (test code no gt See_Comment [Auto mated message] The = Troponin-I) system which g enerated this result transmit kenroy reference range : <=0.40. The reference r alee was not used to interpr et this result as elton l/abnormal. [facility]2019-05-11 01:30:00 Test Item Value Reference Range Interpretation Comments Lactic Acid Lvl (test code = Lactic 2.8 0.5-2.2 Acid Lvl) [facility]2019-05-11 01:30:00 Test Item Value Reference Range Interpretation Comments Lipase Lvl (test code = Lipase Lvl) 131 73-393 [facility]2019-05-11 01:30:00 Test Item Value Reference Range Interpretation Comments Magnesium Lvl (test code = Magnesium 1.8 1.8-2.4 Lvl) [facility]2019-05-11 01:30:00 Test Item Value Reference Range Interpretation Comments Globulin (test code = Globulin) 4.5 2.7-4.2 [facility]2019-05-11 01:30:00 Test Item Value Reference Range Interpretation Comments AGAP (test code = AGAP) 12.5 10.0-20.0 [facility]2019-05-11 01:30:00 Test Item Value Reference Range Interpretation Comments A/G Ratio (test code = A/G Ratio) 0.7 1 0.7-1.6 [facility]2019-05-11 01:30:00 Test Item Value Reference Range Interpretation Comments B/C Ratio (test code = B/C Ratio) 13 1 6-25 [facility]2019-05-11 01:30:00 Test Item Value Reference Range Interpretation Comments eGFR (test code = eGFR) 65 [place] [id number] 01:30:00 Test Item Value Reference Range Interpretation Comments Alk Phos (test code = Alk Phos) 127 39-136 [place] [id number] 01:30:00 Test Item Value Reference Range Interpretation Comments Bili Total (test code = Bili Total) 0.4 0.2-1.3 [place] 829759-05-11 01:30:00 Test Item Value Reference Range Interpretation Comments ALT (test code = ALT) 14 See_Comment [Auto mated message] The system which ge nerated this result transmit kenroy reference range : <=65. The reference range was not used to interpr et this result as elton l/abnormal. [place] 829759-05-11 01:30:00 Test Item Value Reference Range Interpretation Comments AST (test code = AST) 8 See_Comment [Auto mated message] The system which ge nerated this result transmit kenroy reference range : <=37. The reference range was not used to interpr et this result as elton l/abnormal. [facility]2019-05-11 01:30:00 Test Item Value Reference Range Interpretation Comments Albumin Lvl (test code = Albumin Lvl) 3.2 3.5-5.0 [facility]2019-05-11 01:30:00 Test Item Value Reference Range Interpretation Comments Creatinine Lvl (test code = Creatinine 1.09 0.50-1.40 Lvl) [facility]2019-05-11 01:30:00 Test Item Value Reference Range Interpretation Comments Sodium Lvl (test code = Sodium Lvl) 136 135-145 [place] 829759-05-11 01:30:00 Test Item Value Reference Range Interpretation Comments Potassium Lvl (test code = Potassium 3.5 3.5-5.1 Lvl) [place] 829759-05-11 01:30:00 Test Item Value Reference Range Interpretation Comments Chloride Lvl (test code = Chloride Lvl) 100 95-109 [place] 829759-05-11 01:30:00 Test Item Value Reference Range Interpretation Comments Total Protein (test code = Total 7.7 6.4-8.4 Protein) [place] 829759-05-11 01:30:00 Test Item Value Reference Range Interpretation Comments Glucose Lvl (test code = Glucose Lvl) 122 70-99 [facility]2019-05-11 01:30:00 Test Item Value Reference Range Interpretation Comments BUN (test code = BUN) 14 7-22 [place] 829759-05-11 01:30:00 Test Item Value Reference Range Interpretation Comments Calcium Lvl (test code = Calcium Lvl) 9.3 8.5-10.5 [place] 829759-05-11 01:30:00 Test Item Value Reference Range Interpretation Comments CO2 (test code = CO2) 27 24-32 [facility] CampusKqztlidPOYXTIYTPI5631-63-97 01:30:00 Test Item Value Reference Range Interpretation Comments Eosinophils # (test code 0.1 See_Comment [A utomated message] The = Eosinophils #) system whic h generated this result tra nsmitted reference range : <=0.5. The reference r alee was not used to int erpret this result as normal/abnormal . [facility] CampusNshxxdeGZHDRNCLWO3816-30-54 01:30:00 Test Item Value Reference Range Interpretation Comments Microcyte (test code = 2+ *ABN*(07/29/18 Microcyte) 8:30 PM) [facility] CampusOfafosfKJEEKSPCGY2699-46-01 01:30:00 Test Item Value Reference Range Interpretation Comments Neutrophils # (test code = Neutrophils 9.1 1.5-8.1 #) [facility] CampusYnatzmtDWHFHIOWOU5939-07-33 01:30:00 Test Item Value Reference Range Interpretation Comments Lymphocytes # (test code = Lymphocytes 1.3 1.0-5.5 #) [facility] CampusSpxjseyDSRTETQSTQ9007-60-94 01:30:00 Test Item Value Reference Range Interpretation Comments Monocytes # (test code 0.7 See_Comment [Aut omated message] The = Monocytes #) system which generated this result tra nsmitted reference range : <=0.8. The reference r alee was not used to int erpret this result as normal/abnormal . [place] 581909-05-11 01:30:00 Test Item Value Reference Range Interpretation Comments Segs (test code = Segs) 81.3 45.0-75.0 [place] 581909-05-11 01:30:00 Test Item Value Reference Range Interpretation Comments Lymphocytes (test code = Lymphocytes) 11.3 20.0-40.0 [facility] CampusUrgcnvuTZMTNXCUTC0412-62-01 01:30:00 Test Item Value Reference Range Interpretation Comments Monocytes (test code = Monocytes) 6.3 2.0-12.0 [facility] CampusEigcembJFLJPGZZSX6467-72-91 01:30:00 Test Item Value Reference Range Interpretation Comments Eosinophils (test code = 0.7 See_Comment [A utomated message] The Eosinophils) system which ge nerated this result tra nsmitted reference range : <=4.0. The reference r alee was not used to int erpret this result as normal/abnormal . [facility] CampusNgxuzymYSIYAKGYFW9666-82-65 01:30:00 Test Item Value Reference Range Interpretation Comments Basophils (test code = 0.4 See_Comment [Aut omated message] The Basophils) system which ge nerated this result tra nsmitted reference range : <=1.0. The reference r alee was not used to int erpret this result as normal/abnormal . [facility] CampusTbqssvrHQXBARXAQS6251-01-22 01:30:00 Test Item Value Reference Range Interpretation Comments PTT (test code = PTT) 32.2 s 22.9-35.8 [facility] CampusYxgmkghQPYFTGHICK4170-61-09 01:30:00 Test Item Value Reference Range Interpretation Comments INR (test code = INR) 1.08 1 0.85-1.17 [facility] CampusEjjowkcCLOWQUSLJT3558-67-22 01:30:00 Test Item Value Reference Range Interpretation Comments PT (test code = PT) 13.8 s 12.0-14.7 [facility] CampusUdxzvrbBKNKACWJZJ7878-28-56 01:30:00 Test Item Value Reference Range Interpretation Comments Hct (test code = Hct) 30.3 36.0-48.0 [facility] CampusXtgfhcxVEHDAITNYM4480-24-67 01:30:00 Test Item Value Reference Range Interpretation Comments Platelet (test code = Platelet) 372 133-450 [facility] CampusBjosplhKCWCTFUYTS6002-95-95 01:30:00 Test Item Value Reference Range Interpretation Comments RDW (test code = RDW) 17.1 11.5-14.5 [facility] CampusStbvpuoNQEQBKDSDV7297-59-29 01:30:00 Test Item Value Reference Range Interpretation Comments MCH (test code = MCH) 22.5 pg 27.0-31.0 [facility] CampusAihxstyMYIYXPBVFP8351-45-00 01:30:00 Test Item Value Reference Range Interpretation Comments MCV (test code = MCV) 70.9 80.0-98.0 [facility] CampusRjbmjcbCGXRDCFWUS9304-21-27 01:30:00 Test Item Value Reference Range Interpretation Comments MPV (test code = MPV) 8.1 7.4-10.4 [facility] CampusNhezxeeZZLNBTFLMQ6848-14-07 01:30:00 Test Item Value Reference Range Interpretation Comments MCHC (test code = MCHC) 31.7 32.0-36.0 [facility] CampusWpkximrJRDGLSSSPH0547-38-64 01:30:00 Test Item Value Reference Range Interpretation Comments Hgb (test code = Hgb) 9.6 12.0-16.0 [facility] CampusVqzvujyRADDCQRYDA4026-44-57 01:30:00 Test Item Value Reference Range Interpretation Comments WBC (test code = WBC) 11.3 3.7-10.4 [facility] CampusVqrtgiyEBXXULLYWE7133-78-76 01:30:00 Test Item Value Reference Range Interpretation Comments RBC (test code = RBC) 4.27 4.20-5.40 [facility] OOXMV2366-72-12 01:21:00 Test Item Value Reference Range Interpretation Comments Procalcitonin Lvl (test 0.08 See_Comment [Au tomated message] code = Procalcitonin Lvl) Th e system which generated this result transmitted ref erence range: <=0.10. The reference range was not used to interpr et this result as normal/abnormal . [facility]KbctdpmMXZERQYGDKHKX0707-38-99 01:21:00 Test Item Value Reference Range Interpretation Comments hCG Tot (test code = hCG Tot) no gt [facility] RWAVL6034-98-73 01:21:00 Test Item Value Reference Range Interpretation Comments Procalcitonin Lvl (test 0.08 See_Comment [Au tomated message] code = Procalcitonin Lvl) Th e system which generated this result transmitted ref erence range: <=0.10. The reference range was not used to interpr et this result as normal/abnormal . [place] [id number] 01:21:00 Test Item Value Reference Range Interpretation Comments hCG Tot (test code = hCG Tot) no gt [facility] [id number] 01:21:00 Test Item Value Reference Range Interpretation Comments Procalcitonin Lvl (test 0.08 See_Comment [Au tomated message] code = Procalcitonin Lvl) Th e system which generated this result transmitted ref erence range: <=0.10. The reference range was not used to interpr et this result as normal/abnormal . [facility] CenterPypypomSULXJWSTWSQID0104-47-06 01:21:00 Test Item Value Reference Range Interpretation Comments hCG Tot (test code = hCG Tot) no gt [facility] [place] [id number] 01:21:00 Test Item Value Reference Range Interpretation Comments Procalcitonin Lvl (test 0.08 See_Comment [Au tomated message] code = Procalcitonin Lvl) Th e system which generated this result transmitted ref erence range: <=0.10. The reference range was not used to interpr et this result as normal/abnormal . [facility] CenterRqckamtSWEHAZFBBYLBE6516-34-80 01:21:00 Test Item Value Reference Range Interpretation Comments hCG Tot (test code = hCG Tot) no [facility] W/PLT COUNT & AUTO [id number] 14:09:00 Test Item Value Reference Range Interpretation [...] (test code = Normal 762) BASIC METABOLIC [id number] 07:38:00 Test Item Value Reference Range Interpretation [...] 697) EGFR (BEAKER) (test 84 mL/min/1.73 ESTIMA KENROY GFR IS code = 1092) sq m NOT ACCURATE CREATININE CLEARANCE IN PREDICTING GLOMERULAR FILTRATION RATE . ESTIMATED GFR I S NOT APPLICABLE FOR DIALYSIS PATIEN TS. URINE [id number] 12:16:00 Test Item Value Reference Range Interpretation [...] Sulfamethoxazole (test code = 47) BASIC METABOLIC [id number] 06:39:00 Test Item Value Reference Range Interpretation [...] 697) EGFR (BEAKER) (test 77 mL/min/1.73 ESTIMA KENROY GFR IS code = 1092) sq m NOT ACCURATE CREATININE CLEARANCE IN PREDICTING GLOMERULAR FILTRATION RATE . ESTIMATED GFR I S NOT APPLICABLE FOR DIALYSIS PATIEN TS. CBC W/PLT COUNT & AUTO [id number] 06:24:00 Test Item Value Reference Range Interpretation [...] L 0.00-0.20 (test code = 417) 0.00HEMOGLOBIN [id number] 09:41:00 Test Item Value Reference Range Interpretation Comments HEMOGLOBIN A1C (BEAKER) (test code = 5.9 % 4.3-6.1 368) BASIC METABOLIC [id number] 07:57:00 Test Item Value Reference Range Interpretation [...] 697) EGFR (BEAKER) (test 49 mL/min/1.73 ESTIMA KENROY GFR IS code = 1092) sq m NOT ACCURATE CREATININE CLEARANCE IN PREDICTING GLOMERULAR FILTRATION RATE . ESTIMATED GFR I S NOT APPLICABLE FOR DIALYSIS PATIEN TS. CBC W/PLT COUNT & AUTO [id number] 06:57:00 Test Item Value Reference Range Interpretation [...] (BEAKER) (test code = 417) 0.00PREGNANCY SCREEN, [id number] 15:12:00 Test Item Value Reference Range Interpretation Comments TEST URINE (BEAKER) (test Negative code = 583) URINALYSIS W/ [id number] 15:12:00 Test Item Value Reference Range Interpretation [...] 516) SOURCE(BEAKER) (test code = Urine, Voided 3416) BASIC METABOLIC [id number] 14:18:00 Test Item Value Reference Range Interpretation [...] m DATA TO CALCULA TE ESTIMATED GFR. [id number] 13:51:00 Test Item Value Reference Range Interpretation Comments PROTIME (BEAKER) (test code = 13.9 seconds 11.7-14.7 759) INR (BEAKER) (test code = 370) 1.1 <=5.9 PARTIAL THROMBOPLASTIN TIME 25.6 seconds 22.5-36.0 (BEAKER) (test code = 760) RECOMMENDED COUMADIN/WARFARIN INR THERAPY RANGESSTANDARD DOSE: 2.0 - 3.0 Includes: PROPHYLAXIS for venous thrombosis, systemic embolization; TREATMENT for venous thrombosis and/or pulmonary embolus.HIGH RISK: Target INR is 2.5-3.5 for patients with mechanical heart valves.CBC W/PLT COUNT & AUTO [id number] 13:38:00 Test Item Value Reference Range Interpretation [...] L 0.00-0.20 (test code = 417) 0.00 Notes Date/Time Note Provider Source 2020-06-03 11:21:00-00:00 [facility] ([facility]) Cardiology Progress Note REPORT#:[id number] REPORT STATUS: Signed DATE:06/03/20 TIME: 1121 PATIENT: LEIGH FRYE UNIT #: [id number] ROOM/BED: [place] [address] : 80 AGE: 40 SEX: F ATTEND: Priscila Llamas MD ADM AUTHOR: Harsh Merchant NP * ALL edits or amendments must be made on the [employer] document * Subjective Chief Complaint: no chest pain Objective General VS/I O: 24 hour I O ending at 0700: 06/03 0700 06/02 1900 Intake Total 600 Output Total Balance 600 Intake, Oral 600 Number Voids 3 Vital Signs: Date Time Temp Pulse Resp B/P B/P Pulse O2 O2 F low FiO2 Mean Ox Delivery Rate 06/03 1046 36.7 70 19 122/73 89.0 97 06/03 0619 36.5 75 20 122/70 87.5 92 06/03 0243 36.7 77 18 132/74 93.4 96 Room air 06/02 2212 36.7 88 18 135/89 104.2 96 Room air 06/02 1814 36.7 82 18 112/65 80.7 95 Room air 06/02 1545 36.9 80 20 148/81 103.1 97 PATIENT WEIGHT: Weight (lb): Weight (oz): Weight (kg): 232.727 Medications: Active Meds + DC'd Last 24 Hrs Potassium Chloride 40 MEQ ONCE ONE PO (DC) Morphine Sulfate 2 MG Q4H PRN PRN IV Trazodone HCl 50 MG BEDTIME PRN PRN PO Hydroxyzine HCl 50 MG TID PRN PRN PO Risperidone 1 MG BEDTIME PO Gabapentin 600 MG TID PO Potassium Chloride 40 MEQ DAILY PO Venlafaxine HCl 225 MG QAM PO Apixaban 5 MG BID PO Atorvastatin Calcium 40 MG BEDTIME PO [place] Oil/[place] Balsam/Trypsin 1 APPLIC BEDT ROXANA TOPICAL Montelukast Sodium 10 MG BEDTIME PO Citalopram Hydrobromide 40 MG DAILY PO Furosemide 40 MG BID 9A 5P IV Hydrocortisone 10 MG BID AC PO Loratadine 10 MG DAILY PO Metoprolol Tartrate 25 MG BID PO Oxycodone/Acetaminophen 1 TAB Q8H PRN PRN PO Pantoprazole 40 MG DAILY@0600 PO Insulin Human Lispro SLIDING SCALE AC HS SUBQ Acetaminophen 650 MG Q4H PRN PRN PO Ondansetron HCl 4 MG Q6H PRN PRN IV Physical Exam General appearance: alert, awake, oriented, no a cute distress Head/Eyes: clear cornea ENT: moist mucosal membranes Neck: no JVD Cardiovascular: CV assessment: regular rate and rhythm Respiratory: decreased breath sounds Abdomen: soft Lower extremity: LE assessment: edema Diagnosis, Assessment Plan Free Text DxA P Notes Free Text DxA P Notes: ECHO: 1. Left ventricle: The cavity size is mildly dil ated. Wall thickness is moderately increased. Systolic function is norm al. The estimated ejection fraction is 55-60%. Wall motion is nor mal; there are no regional wall motion abnormalities. Doppler par ameters are consistent with abnormal left ventricular relaxation (grad e 1 diastolic dysfunction). 2. Left atrium: The atrium is dilated. 3. Pericardium, extracardiac: There is no perica rdial effusion. 4. No significant valve disease identified by do fermin. Assessment and plan:his is a 40-year-old patient with past medical history of diastolic CHF, chronic lymphedema, A. fib on Araceli barbara, hyperlipidemia, hypertension, diabetes mellitus, obesity, pititu martha adenoma came with chest pain . 1. Chest pain are typical , non cardiac etiology , last cath reviwed from from [facility] 08/18 2019 showed normal coronaries. EKG shows normal sinus rhythm no acute ST-T changes, CTA chest negative for PE troponin s x2 are negative DE is ruled out. Echocardiogram showed normal LV function. 2. History of A. fib sinus rhythm on evaluation, we will continue Eliquis 3. Chronic lymphedema will continue diuretics 4. Hypertension we will resume home medication Okay to DC from cardiology standpoint POC discussed with Dr. Rivera Thank you very much for the consult will follow with you Electronically Signed by Harsh Merchant VISITOR SERVICES TECHNICIAN on at 1123 RPT #:[id number] END OF REPORT 2020-06-03 11:21:00-00:00 [facility] ([facility] Cardiology Progress Note REPORT#:[id number] REPORT STATUS: Signed DATE:06/03/20 TIME: 112 PATIENT: LEIGH FRYE UNIT #: [id number] ROOM/BED: [place] [address] : 80 AGE: 40 SEX: F ATTEND: Kavitha Llamas MD ADM AUTHOR: Harsh Merchant NP * ALL edits or amendments must be made on the [employer] document * Harsh Merchant 06/03/20 1121: Subjective Chief Complaint: no chest pain Objective General VS/I O: 24 hour I O ending at 0700: 06/03 0700 06/02 1900 Intake Total 600 Output Total Balance 600 Intake, Oral 600 Number Voids 3 Vital Signs: Date Time Temp Pulse Resp B/P B/P Pulse O2 O2 Flow FiO2 Mean Ox Delivery Rate 06/03 1046 36.7 70 19 122/73 89.0 97 06/03 0619 36.5 75 20 122/70 87.5 92 06/03 0243 36.7 77 18 132/74 93.4 96 Room air 06/02 2212 36.7 88 18 135/89 104.2 96 Room air 06/02 1814 36.7 82 18 112/65 80.7 95 Room air 06/02 1545 36.9 80 20 148/81 103.1 97 PATIENT WEIGHT: Weight (lb): Weight (oz): Weight (kg): 232.727 Medications: Active Meds + DC'd Last 24 Hrs Potassium Chloride 40 MEQ ONCE ONE PO (DC) Morphine Sulfate 2 MG Q4H PRN PRN IV Trazodone HCl 50 MG BEDTIME PRN PRN PO Hydroxyzine HCl 50 MG TID PRN PRN PO Risperidone 1 MG BEDTIME PO Gabapentin 600 MG TID PO Potassium Chloride 40 MEQ DAILY PO Venlafaxine HCl 225 MG QAM PO Apixaban 5 MG BID PO Atorvastatin Calcium 40 MG BEDTIME PO [place] Oil/Swedish Balsam/Trypsin 1 APPLIC BEDT ROXANA TOPICAL Montelukast Sodium 10 MG BEDTIME PO Citalopram Hydrobromide 40 MG DAILY PO Furosemide 40 MG BID 9A 5P IV Hydrocortisone 10 MG BID AC PO Loratadine 10 MG DAILY PO Metoprolol Tartrate 25 MG BID PO Oxycodone/Acetaminophen 1 TAB Q8H PRN PRN PO Pantoprazole 40 MG DAILY@0600 PO Insulin Human Lispro SLIDING SCALE AC HS SUBQ Acetaminophen 650 MG Q4H PRN PRN PO Ondansetron HCl 4 MG Q6H PRN PRN IV Physical Exam General appearance: alert, awake, oriented, no a cute distress Head/Eyes: clear cornea ENT: moist mucosal membranes Neck: no JVD Cardiovascular: CV assessment: regular rate and rhythm Respiratory: decreased breath sounds Abdomen: soft Lower extremity: LE assessment: edema Diagnosis, Assessment Plan Free Text DxA P Notes Free Text DxA P Notes: ECHO: 1. Left ventricle: The cavity size is mildly dil ated. Wall thickness is moderately increased. Systolic function is norm al. The estimated ejection fraction is 55-60%. Wall motion is nor mal; there are no regional wall motion abnormalities. Doppler par ameters are consistent with abnormal left ventricular relaxation (grad e 1 diastolic dysfunction). 2. Left atrium: The atrium is dilated. 3. Pericardium, extracardiac: There is no perica rdial effusion. 4. No significant valve disease identified by do fermin. Assessment and plan:his is a 40-year-old patient with past medical history of diastolic CHF, chronic lymphedema, A. fib on Araceli barbara, hyperlipidemia, hypertension, diabetes mellitus, obesity, pititu martha adenoma came with chest pain . 1. Chest pain are typical , non cardiac etiology , last cath reviwed from from [facility] 08/18 2019 showed normal coronaries. EKG shows normal sinus rhythm no acute ST-T changes, CTA chest negative for PE troponin s x2 are negative DE is ruled out. Echocardiogram showed normal LV function. 2. History of A. fib sinus rhythm on evaluation, we will continue Eliquis 3. Chronic lymphedema will continue diuretics 4. Hypertension we will resume home medication Okay to DC from cardiology standpoint POC discussed with Dr. Rivera Thank you very much for the consult will follow with you Nigel Junior 06/03/20 1556: Attestations Physician Attestation Agree w/findings plan: I have seen and examined the patient at bedside. I have reviewed the relevant test results and formualated the assessm ent and plan. I agree with the note by Harsh Merchant NP. Electronically Signed by Harsh Merchant NP on at 1123 RPT #:[id number] END OF REPORT 2020-06-03 11:21:00-00:00 [facility] ([facility] Cardiology Progress Note REPORT#:[id number] REPORT STATUS: Signed DATE:06/03/20 TIME: 112 PATIENT: LEIGH FRYE UNIT #: [id number] ROOM/BED: [place] [address] : 80 AGE: 40 SEX: F ATTEND: Kavitha Llamas MD ADM AUTHOR: Harsh Merchant NP * ALL edits or amendments must be made on the [employer] document * Harsh Merchant 06/03/20 1121: Subjective Chief Complaint: no chest pain Objective General VS/I O: 24 hour I O ending at 0700: 06/03 0700 06/02 1900 Intake Total 600 Output Total Balance 600 Intake, Oral 600 Number Voids 3 Vital Signs: Date Time Temp Pulse Resp B/P B/P Pulse O2 O2 F low FiO2 Mean Ox Delivery Rate 06/03 1046 36.7 70 19 122/73 89.0 97 06/03 0619 36.5 75 20 122/70 87.5 92 06/03 0243 36.7 77 18 132/74 93.4 96 Room air 06/02 2212 36.7 88 18 135/89 104.2 96 Room air 06/02 1814 36.7 82 18 112/65 80.7 95 Room air 06/02 1545 36.9 80 20 148/81 103.1 97 PATIENT WEIGHT: Weight (lb): Weight (oz): Weight (kg): 232.727 Medications: Active Meds + DC'd Last 24 Hrs Potassium Chloride 40 MEQ ONCE ONE PO (DC) Morphine Sulfate 2 MG Q4H PRN PRN IV Trazodone HCl 50 MG BEDTIME PRN PRN PO Hydroxyzine HCl 50 MG TID PRN PRN PO Risperidone 1 MG BEDTIME PO Gabapentin 600 MG TID PO Potassium Chloride 40 MEQ DAILY PO Venlafaxine HCl 225 MG QAM PO Apixaban 5 MG BID PO Atorvastatin Calcium 40 MG BEDTIME PO [place] Oil/Swedish Balsam/Trypsin 1 APPLIC BEDT ROXANA TOPICAL Montelukast Sodium 10 MG BEDTIME PO Citalopram Hydrobromide 40 MG DAILY PO Furosemide 40 MG BID 9A 5P IV Hydrocortisone 10 MG BID AC PO Loratadine 10 MG DAILY PO Metoprolol Tartrate 25 MG BID PO Oxycodone/Acetaminophen 1 TAB Q8H PRN PRN PO Pantoprazole 40 MG DAILY@0600 PO Insulin Human Lispro SLIDING SCALE AC HS SUBQ Acetaminophen 650 MG Q4H PRN PRN PO Ondansetron HCl 4 MG Q6H PRN PRN IV Physical Exam General appearance: alert, awake, oriented, no a cute distress Head/Eyes: clear cornea ENT: moist mucosal membranes Neck: no JVD Cardiovascular: CV assessment: regular rate and rhythm Respiratory: decreased breath sounds Abdomen: soft Lower extremity: LE assessment: edema Diagnosis, Assessment Plan Free Text DxA P Notes Free Text DxA P Notes: ECHO: 1. Left ventricle: The cavity size is mildly dil ated. Wall thickness is moderately increased. Systolic function is norm al. The estimated ejection fraction is 55-60%. Wall motion is nor mal; there are no regional wall motion abnormalities. Doppler par ameters are consistent with abnormal left ventricular relaxation (grad e 1 diastolic dysfunction). 2. Left atrium: The atrium is dilated. 3. Pericardium, extracardiac: There is no perica rdial effusion. 4. No significant valve disease identified by do fermin. Assessment and plan:his is a 40-year-old patient with past medical history of diastolic CHF, chronic lymphedema, A. fib on Araceli barbara, hyperlipidemia, hypertension, diabetes mellitus, obesity, pititu martha adenoma came with chest pain . 1. Chest pain are typical , non cardiac etiology , last cath reviwed from from [facility] 08/18 2019 showed normal coronaries. EKG shows normal sinus rhythm no acute ST-T changes, CTA chest negative for PE troponin s x2 are negative DE is ruled out. Echocardiogram showed normal LV function. 2. History of A. fib sinus rhythm on evaluation, we will continue Eliquis 3. Chronic lymphedema will continue diuretics 4. Hypertension we will resume home medication Okay to DC from cardiology standpoint POC discussed with Dr. Rivera Thank you very much for the consult will follow with you Nigel Junior 06/03/20 1556: Attestations Physician Attestation Agree w/findings plan: I have seen and examined the patient at bedside. I have reviewed the relevant test results and formualated the assessm ent and plan. I agree with the note by Harsh Merchant NP. Electronically Signed by Harsh Merchant NP on at 1123 at 1604 RPT #:[id number] END OF REPORT 2020-06-02 13:26:00-00:00 [facility] ([facility] Cardiology Progress Note REPORT#:[id number] REPORT STATUS: Signed DATE:06/02/20 TIME: 1326 PATIENT: LEIGH FRYE UNIT #: [id number] ROOM/BED: [place] [id number] : 80 AGE: 40 SEX: F ATTEND: Kavitha Llamas MD ADM AUTHOR: Walt Lewis * ALL edits or amendments must be made on the [employer]/computer document * Subjective Chief Complaint: no chest pain Objective General VS/I O: 24 hour I O ending at 0700: 06/02 0700 06/01 1900 Intake Total 600 Output Total Balance 600 Intake, Oral 600 Number Voids 3 Vital Signs: Date Time Temp Pulse Resp B/P B/P Pulse O2 O2 F low FiO2 Mean Ox Delivery Rate 06/02 1114 36.7 79 20 103/64 76.8 95 06/02 0709 36.6 80 20 114/58 76.7 95 06/02 0305 36.6 83 18 115/64 81.2 95 Room air 06/01 2220 99 18 152/69 96.8 94 06/01 2201 36.8 83 18 169/105 126.2 97 Room ai r 06/01 1835 36.9 87 18 144/88 106.8 96 Room air 06/01 1627 37.0 93 18 134/87 102.6 95 Room air PATIENT WEIGHT: Weight (lb): Weight (oz): Weight (kg): 232.727 Medications: Active Meds + DC'd Last 24 Hrs Morphine Sulfate 2 MG Q4H PRN PRN IV Trazodone HCl 50 MG BEDTIME PRN PRN PO Hydroxyzine HCl 50 MG TID PRN PRN PO Risperidone 1 MG BEDTIME PO Gabapentin 600 MG TID PO Potassium Chloride 40 MEQ DAILY PO Venlafaxine HCl 225 MG QAM PO Apixaban 5 MG BID PO Atorvastatin Calcium 40 MG BEDTIME PO [place] Oil/[place] Balsam/Trypsin 1 APPLIC BEDT ROXANA TOPICAL Montelukast Sodium 10 MG BEDTIME PO Citalopram Hydrobromide 40 MG DAILY PO Furosemide 40 MG BID 9A 5P IV Hydrocortisone 10 MG BID AC PO Hydroxyzine HCl 50 MG DAILY PRN PRN PO (DC) Loratadine 10 MG DAILY PO Metoprolol Tartrate 25 MG BID PO Oxycodone/Acetaminophen 1 TAB Q8H PRN PRN PO Pantoprazole 40 MG DAILY@0600 PO Insulin Human Lispro SLIDING SCALE AC HS SUBQ Acetaminophen 650 MG Q4H PRN PRN PO Ondansetron HCl 4 MG Q6H PRN PRN IV Physical Exam General appearance: awake Head/Eyes: clear cornea ENT: moist mucosal membranes Neck: no JVD Cardiovascular: CV assessment: regular rate and rhythm Respiratory: decreased breath sounds Abdomen: soft Lower extremity: LE assessment: edema Results Findings/Data: Laboratory Tests 06/02 06/02 06/02 06/01 06/01 1113 2930 0656 1955 1604 Chemistry Sodium (134.0 - 147.0 mmol/l) 132 L Potassium (3.6 - 5.2 mmol/L) 3.4 L Chloride (98.0 - 107.0 mmol/l) 97 L Carbon Dioxide (21.0 - 33.0 mmol/l) 28.9 Anion Gap (0 - 20) 9.5 BUN (7.0 - 18.0 mg/dl) 14 Creatinine (0.60 - 1.30 mg/dL) 0.78 Est GFR ( Amer) (115 - 127 mL/min) 105 L Est GFR (Non-Af Amer) (95 - 105 mL/min) 87 L Glucose (70.0 - 110.0 mg/dl) 178 H POC Glucose (70 - 110 mg/dL) 256 H 172 H 241 H 213 H Calcium (8.0 - 10.5 mg/dl) 8.3 Magnesium (1.8 - 2.4 mg/dl) 1.9 Laboratory Tests 06/02 0656 Chemistry Magnesium (1.8 - 2.4 mg/dl) 1.9 Diagnosis, Assessment Plan Free Text DxA P Notes Free Text DxA P Notes: ECHO: 1. Left ventricle: The cavity size is mildly dil ated. Wall thickness is moderately increased. Systolic function is nor mal. The estimated ejection fraction is 55-60%. Wall motion is nor mal; there are no regional wall motion abnormalities. Doppler par ameters are consistent with abnormal left ventricular relaxation (grad e 1 diastolic dysfunction). 2. Left atrium: The atrium is dilated. 3. Pericardium, extracardiac: There is no perica rdial effusion. 4. No significant valve disease identified by do fermin. Assessment and plan:his is a 40-year-old patient with past medical history of diastolic CHF, chronic lymphedema, A. fib on Araceli barbara, hyperlipidemia, hypertension, diabetes mellitus, obesity, pititu martha adenoma came with chest pain . 1. Chest pain are typical EKG shows norm al sinus rhythm no acute ST-T changes, CTA chest negative for PE troponins x2 are negat thomas [place] is ruled out. Will review [facility] records she reports she had a normal left heart cath 2019. We will get an echocardiogram to check LV function. 2. History of A. fib sinus rhythm on evaluation, we will continue Eliquis 3. Chronic lymphedema will continue diuretics 4. Hypertension we will resume home medication Thank you very much for the consult will follow with you at 2008 RPT #:[id number] END OF REPORT 2020-06-02 13:06:00-00:00 [facility] ([facility]) Hospitalist Progress Note REPORT#:[id number] REPORT STATUS: Signed DATE:06/02/20 TIME: 1306 PATIENT: LEIGH FRYE UNIT #: [id number] ROOM/BED: [place] [address] : 80 AGE: 40 SEX: F ATTEND: Kavitha Llamas MD ADM AUTHOR: Rosa Llamas MD * ALL edits or amendments must be made on the [employer]/computer document * Subjective Chief Complaint: Wants to see psychiatrist No SI or HI noted Review of Systems Constitutional: Denies: fever. Respiratory: Denies: SOB, wheezing. Cardiovascular: Reports: edema. Denies: chest pain. Objective General VS/I O: Vital Signs: Date Time Temp Pulse Resp B/P B/P Pulse O2 O2 F low FiO2 Mean Ox Delivery Rate 06/02 1114 36.7 79 20 103/64 76.8 95 06/02 0709 36.6 80 20 114/58 76.7 95 06/02 0305 36.6 83 18 115/64 81.2 95 Room air 06/01 2220 99 18 152/69 96.8 94 06/01 2201 36.8 83 18 169/105 126.2 97 Room air 06/01 1835 36.9 87 18 144/88 106.8 96 Room air 06/01 1627 37.0 93 18 134/87 102.6 95 Room air 24 hour I O ending at 0700: 06/01 1900 06/02 0700 Intake Total 600 Output Total Balance 600 Intake, Oral 600 Number Voids 3 PATIENT WEIGHT: Weight (lb): Weight (oz): Weight (kg): 232.727 Results Findings/Data: Laboratory Tests 06/01 06/01 06/02 06/02 06/02 1604 1955 0656 0730 1113 Chemistry Sodium (134.0 - 147.0 mmol/l) 132 L Potassium (3.6 - 5.2 mmol/L) 3.4 L Chloride (98.0 - 107.0 mmol/l) 97 L Carbon Dioxide (21.0 - 33.0 mmol/l) 28.9 Anion Gap (0 - 20) 9.5 BUN (7.0 - 18.0 mg/dl) 14 Creatinine (0.60 - 1.30 mg/dL) 0.78 Est GFR ( Amer) (115 - 127 mL/min) 105 L Est GFR (Non-Af Amer) (95 - 105 mL/min) 87 L Glucose (70.0 - 110.0 mg/dl) 178 H POC Glucose (70 - 110 mg/dL) 213 H 241 H 172 H 256 H Calcium (8.0 - 10.5 mg/dl) 8.3 Magnesium (1.8 - 2.4 mg/dl) 1.9 Free Text Obj Notes Free Text Obj Notes: PHYSICAL EXAMINATION General appearance: alert, awake, no acute dist ress Head/Eyes: atraumatic, normocephalic, PERRL, EO DE ENT: normal ear left, normal ear right, normal nose, normal pharynx Neck: full range of motion, supple/no meningism us Cardiovascular: normal S1/S2, regular rate rhyt hm Respiratory/chest: good breath sounds, symmetri c expansion, no distress Abdomen: soft, non-tender, normal bowel sounds Genitourinary: deferred Extremities: moves all, no clubbing, no cyanosi s, bilateral leg edema with erythema Musculoskeletal: full range of motion, normal i nspection Neuro/REFERRAL COORDINATOR alert, oriented X 3, CNII-XII intact Skin: dry, intact Psychiatry: normal affect, normal judgment/insi ght, normal mood Diagnosis, Assessment Plan Free Text DxA P Notes Free text DxA P notes: Chest pain Atypical First troponin negative CTA chest negative Cardiology consulted, echo normal EF, grade 1 di astolic dysfunction Leg edema ?Diastolic CHF With component of venous insufficiency IV Lasix, home meds, fluid restriction, consult Ms. Em Morales for venous insufficiency--- not true lymphedema Compression wraps helping Hyponatremia Continue IV Lasix Hypokalemia Replace again Diabetes mellitus type 2 uncontrolled with hyper glycemia, hemoglobin A1c 8.6 Sliding scale insulin Consult dietitian History of PE on Eliquis, depression, anxiety, P TSD, A. fib Consult psych Electronically Signed by Rosa Llamas MD on at 1413 RPT #:[id number] END OF REPORT 2020-06-01 16:16:00-00:00 [facility] Progress Note REPORT#:[id number] REPORT STATUS: Signed DATE:06/01/20 TIME: 1615 PATIENT: LEIGH FRYE UNIT #: [id number] ROOM/BED: [place] [phone] : 80 AGE: 40 SEX: F ATTEND: Kavitha Llamas MD ADM AUTHOR: Walt Lewis * ALL edits or amendments must be made on the [employer] document * Subjective Chief Complaint: no chest pain Objective General VS/I O: 24 hour I O ending at 0700: 06/01 0700 05/31 1900 Intake Total 240 Output Total Balance 240 Intake, Oral 240 Number Voids 1 Vital Signs: Date Time Temp Pulse Resp B/P B/P Pulse O2 O2 Flow FiO2 Mean Ox Delivery Rate 06/01 1115 36.8 81 18 146/94 111.5 97 Room air 06/01 0731 36.7 83 18 144/91 108.7 96 Room air 06/01 0240 36.4 79 18 136/68 90.6 94 Room air 05/31 2225 37.0 87 18 119/71 87.1 94 Room air 05/31 1948 36.8 88 18 151/97 114.5 96 Room air 05/31 1912 84 18 135/82 99 96 Room air 05/31 1837 88 19 99 Room air PATIENT WEIGHT: Weight (lb): Weight (oz): Weight (kg): 232.727 Medications: Active Meds + DC'd Last 24 Hrs Risperidone 1 MG BEDTIME PO Gabapentin 600 MG TID PO Potassium Chloride 40 MEQ DAILY PO Venlafaxine HCl 225 MG QAM PO Apixaban 5 MG BID PO Atorvastatin Calcium 40 MG BEDTIME PO [place] Oil/[place] Balsam/Trypsin 1 APPLIC BEDT ROXANA TOPICAL Montelukast Sodium 10 MG BEDTIME PO Citalopram Hydrobromide 40 MG DAILY PO Furosemide 40 MG BID 9A 5P IV Hydrocortisone 10 MG BID AC PO Hydroxyzine HCl 50 MG DAILY PRN PRN PO Loratadine 10 MG DAILY PO Metoprolol Tartrate 25 MG BID PO Oxycodone/Acetaminophen 1 TAB Q8H PRN PRN PO Pantoprazole 40 MG DAILY@0600 PO Insulin Human Lispro SLIDING SCALE AC HS SUBQ Acetaminophen 650 MG Q4H PRN PRN PO Dextrose/Water 125 ML ASDIR PRN IV (DC) Dextrose/Water 250 ML ASDIR PRN IV (DC) Glucagon 1 MG ASDIR PRN IM (DC) Ondansetron HCl 4 MG Q6H PRN PRN IV Nitroglycerin 0.4 MG Q5M PRN PRN SL (DC) Physical Exam General appearance: awake Head/Eyes: clear cornea ENT: moist mucosal membranes Neck: no JVD Cardiovascular: CV assessment: regular rate and rhythm Respiratory: decreased breath sounds Abdomen: soft Lower extremity: LE assessment: edema Results Findings/Data: Laboratory Tests 06/01 06/01 06/01 06/01 05/31 1130 0756 0620 0620 2026 Chemistry Sodium (134.0 - 147.0 mmol/l) 132 L Potassium (3.6 - 5.2 mmol/L) 3.4 L Chloride (98.0 - 107.0 mmol/l) 97 L Carbon Dioxide (21.0 - 33.0 mmol/l) 30.1 Anion Gap (0 - 20) 8.3 BUN (7.0 - 18.0 mg/dl) 11 Creatinine (0.60 - 1.30 mg/dL) 0.76 Est GFR ( Amer) (115 - 127 mL/min) 108 L Est GFR (Non-Af Amer) (95 - 105 mL/min) 89 L Glucose (70.0 - 110.0 mg/dl) 205 H POC Glucose (70 - 110 mg/dL) 234 H 196 H 199 H Calcium (8.0 - 10.5 mg/dl) 8.5 Magnesium (1.8 - 2.4 mg/dl) 1.8 Laboratory Tests 06/01 0620 Hematology WBC (4.5 - 11.0 K/mm3) 6.2 RBC (3.80 - 5.20 M/mm3) 3.95 Hgb (12.0 - 16.0 gm/dL) 11.1 L Hct (36.0 - 48.0 %) 34.3 L MCV (82.0 - 99.0 UM3) 86.8 MCH (25.5 - 32.5 UUG) 28.1 MCHC (29.0 - 35.5 gm/dL) 32.4 RDW (11.5 - 15.0 %) 13.4 Plt Count (150 - 400 K/mm3) 210 MPV (7.4 - 10.4 fl) 9.9 Neut % (Auto) (49.0 - 76.0 %) 60.9 Lymph % (Auto) (23.0 - 38.0 %) 27.2 Merrick % (Auto) (1.0 - 10.0 %) 6.1 Eos % (Auto) (1.0 - 5.0 %) 4.7 Baso % (Auto) (0.0 - 1.0 %) 0.5 Neut # (Auto) (2.4 - 6.3 K/mm3) 3.8 Lymph # (Auto) (1.2 - 4.0 K/mm3) 1.7 Merrick # (Auto) (0.0 - 0.6 K/mm3) 0.4 Eos # (Auto) (0.0 - 0.7 K/MM3) 0.3 Baso # (Auto) (0.0 - 0.2 K/mm3) 0.0 Absolute Nucleated RBC (0.00 - 0.01 X10 3uL) 0. 00 Immature Gran % (0.0 - 0.4 %) 0.6 H Nucleated RBC % (0.0 - 0.1 %) 0.0 Immature Gran # (0.00 - 0.07 x10 3/uL) 0.04 Laboratory Tests 06/01 0620 Chemistry Magnesium (1.8 - 2.4 mg/dl) 1.8 Diagnosis, Assessment Plan Free Text DxA P Notes Free Text DxA P Notes: ECHO: 1. Left ventricle: The cavity size is mildly dil ated. Wall thickness is moderately increased. Systolic function is norm al. The estimated ejection fraction is 55-60%. Wall motion is nor mal; there are no regional wall motion abnormalities. Doppler par ameters are consistent with abnormal left ventricular relaxation (grad e 1 diastolic dysfunction). 2. Left atrium: The atrium is dilated. 3. Pericardium, extracardiac: There is no perica rdial effusion. 4. No significant valve disease identified by do ppler. Assessment and plan:his is a 40-year-old patient with past medical history of diastolic CHF, chronic lymphedema, A. fib on Araceli barbara, hyperlipidemia, hypertension, diabetes mellitus, obesity, pititu martha adenoma came with chest pain . 1. Chest pain are typical EKG shows norm al sinus rhythm no acute ST-T changes, CTA chest negative for PE troponins x2 are negat thomas [place] is ruled out. Will review [facility] records she reports she had a normal left heart cath 2019. We will get an echocardiogram to check LV function. 2. History of A. fib sinus rhythm on evaluation, we will continue Eliquis 3. Chronic lymphedema will continue diuretics 4. Hypertension we will resume home medication Thank you very much for the consult will follow with you at 2007 RPT #:[id number] END OF REPORT 2020-06-01 08:25:00-00:00 [facility] ([facility]) Hospitalist Progress Note REPORT#:[id number] REPORT STATUS: Signed DATE:06/01/20 TIME: 824 PATIENT: LEIGH FRYE UNIT #: [id number] ROOM/BED: [place] [address] : 80 AGE: 40 SEX: F ATTEND: Kavitha Llamas MD ADM AUTHOR: Rosa Llamas MD * ALL edits or amendments must be made on the [employer]/computer document * Subjective Chief Complaint: Continues to feel bad with chest pain, shortness of breath, leg edema Reports having withdrawals from not taking her p sych meds Review of Systems Constitutional: Denies: fever. Respiratory: Reports: SOB. Denies: wheezing. Cardiovascular: Reports: chest pain, edema. GI: Denies: nausea, vomiting. Objective General VS/I O: Vital Signs: Date Time Temp Pulse Resp B/P B/P Pulse O2 O2 F low FiO2 Mean Ox Delivery Rate 06/01 0731 36.7 83 18 144/91 108.7 96 Room air 06/01 0240 36.4 79 18 136/68 90.6 94 Room air 05/315 37.0 87 18 119/71 87.1 94 Room air 05/31 1948 36.8 88 18 151/97 114.5 96 Room air 05/31 1912 84 18 135/82 99 96 Room air 05/31 1837 88 19 99 Room air 05/31 1300 37.2 98 19 169/82 111 100 05/31 1100 36.7 92 18 169/89 115 98 Room air 24 hour I O ending at 0700: 05/31 1900 06/01 0700 Intake Total 240 Output Total Balance 240 Intake, Oral 240 Number Voids 1 PATIENT WEIGHT: Weight (lb): Weight (oz): Weight (kg): 232.727 Results Findings/Data: Laboratory Tests 05/31 05/31 05/31 05/31 06/01 1037 1037 1212 2026 0620 Chemistry Sodium (134.0 - 147.0 mmol/l) 132 L 132 L Potassium (3.6 - 5.2 mmol/L) 4.4 3.4 L Chloride (98.0 - 107.0 mmol/l) 96 L 97 L Carbon Dioxide (21.0 - 33.0 mmol/l) 29.1 30.1 Anion Gap (0 - 20) 11.3 8.3 BUN (7.0 - 18.0 mg/dl) 11 11 Creatinine (0.60 - 1.30 mg/dL) 0.55 L 0.76 Est GFR ( Amer) (115 - 127 mL/min) 157 H 108 L Est GFR (Non-Af Amer) (95 - 105 mL/min) 129 H 8 9 L Glucose (70.0 - 110.0 mg/dl) 226 H 205 H POC Glucose (70 - 110 mg/dL) 194 H 199 H Hemoglobin A1c (4.8 - 6.0 %A1C) 8.6 H Estim Average Glucose (MG/DL) 200 Calcium (8.0 - 10.5 mg/dl) 8.6 8.5 Total Creatine Kinase (21 - 215 Units/L) 108 Troponin I (0.00 - 0.06 NG/ML) <0.02 TSH (0.47 - 5.01 IU/ML) 2.48 06/02 619 Chemistry Magnesium (1.8 - 2.4 mg/dl) 1.8 Laboratory Tests 06/02 619 Hematology WBC (4.5 - 11.0 K/mm3) 6.2 RBC (3.80 - 5.20 M/mm3) 3.95 Hgb (12.0 - 16.0 gm/dL) 11.1 L Hct (36.0 - 48.0 %) 34.3 L MCV (82.0 - 99.0 UM3) 86.8 MCH (25.5 - 32.5 UUG) 28.1 MCHC (29.0 - 35.5 gm/dL) 32.4 RDW (11.5 - 15.0 %) 13.4 Plt Count (150 - 400 K/mm3) 210 MPV (7.4 - 10.4 fl) 9.9 Neut % (Auto) (49.0 - 76.0 %) 60.9 Lymph % (Auto) (23.0 - 38.0 %) 27.2 Merrick % (Auto) (1.0 - 10.0 %) 6.1 Eos % (Auto) (1.0 - 5.0 %) 4.7 Baso % (Auto) (0.0 - 1.0 %) 0.5 Neut # (Auto) (2.4 - 6.3 K/mm3) 3.8 Lymph # (Auto) (1.2 - 4.0 K/mm3) 1.7 Merrick # (Auto) (0.0 - 0.6 K/mm3) 0.4 Eos # (Auto) (0.0 - 0.7 K/MM3) 0.3 Baso # (Auto) (0.0 - 0.2 K/mm3) 0.0 Absolute Nucleated RBC (0.00 - 0.01 X10 3uL) 0. 00 Immature Gran % (0.0 - 0.4 %) 0.6 H Nucleated RBC % (0.0 - 0.1 %) 0.0 Immature Gran # (0.00 - 0.07 x10 3/uL) 0.04 Free Text Obj Notes Free Text Obj Notes: PHYSICAL EXAMINATION General appearance: alert, awake, no acute dist ress Head/Eyes: atraumatic, normocephalic, PERRL, EO DE ENT: normal ear left, normal ear right, normal nose, normal pharynx Neck: full range of motion, supple/no meningism us Cardiovascular: normal S1/S2, regular rate rhyt hm Respiratory/chest: good breath sounds, symmetri c expansion, no distress Abdomen: soft, non-tender, normal bowel sounds Genitourinary: deferred Extremities: moves all, no clubbing, no cyanosi s, bilateral leg edema with erythema Musculoskeletal: full range of motion, normal i nspection Neuro/REFERRAL COORDINATOR alert, oriented X 3, CNII-XII intact Skin: dry, intact Psychiatry: normal affect, normal judgment/insi ght, normal mood Diagnosis, Assessment Plan Free Text DxA P Notes Free text DxA P notes: Chest pain Atypical First troponin negative CTA chest negative Cardiology consulted, echo normal EF, grade 1 di astolic dysfunction Leg edema ?Diastolic CHF With component of venous insufficiency IV Lasix, home meds, fluid restriction, consult Ms. Em Morales for venous insufficiency--- not true lymphedema Compression wraps Hyponatremia Continue IV Lasix Hypokalemia Replace again Diabetes mellitus type 2 uncontrolled with hyper glycemia, hemoglobin A1c 8.6 Sliding scale insulin Consult dietitian History of PE on Eliquis, depression, anxiety, P TSD, A. fib Restart psych meds DC in a.m. Electronically Signed by Rosa Llamas MD on at 0828 RPT #:[id number] END OF REPORT 2020-05-31 17:25:00-00:00 [facility] ([facility]) Wound Care Consultation Note REPORT#:[id number] REPORT STATUS: Signed DATE:05/31/20 TIME: 1725 PATIENT: LEIGH FRYE UNIT #: [id number] ROOM/BED: [place] [address] : 80 AGE: 40 SEX: F ATTEND: Kavitha Llamas MD ADM AUTHOR: Em Morales VISITOR SERVICES TECHNICIAN * ALL edits or amendments must be made on the [employer]computer document * History of Present Illness Requesting Clinician: Dr Llamas Reason for consult: Wound care consulted for BLE lymphadema HPI: 40 y/o female re-admitted to hospital 05/31/20 wi th fluid overload and psych issues. She says she was jus t released from two months stay at [facility] for suicidal episode and no one took care o f her legs are swelling. She says she is hoemless and was sent to a the medical center in [place] yesterday, but didn't have any medicines and started feelin g panicked so she came to ER. History Past History Past medical history: bipolar, depression (with suicidal episodes), morbid obesity Past surgical history: gastric lap banding failu re Past social history: disabled, homeless, single, poor social support Allergies: Coded Allergies: metformin (DIZZINESS, BLURRED VISION, SWEATING, DIARRHEA 05/31/20) Objective VS/I O: Last Documented: Result Date Time Pulse Ox 100 05/31 1300 B/P 169/82 05/31 1300 B/P Mean 111 05/31 1300 Temp 98.9 05/31 1300 Pulse 98 05/31 1300 Resp 19 05/31 1300 O2 Delivery Room air 05/31 1100 24 hour I O ending at 0700: 05/30 1900 05/31 0700 Intake Total Output Total Balance Patient 513 lb Weight Weight Stated/Reported Measurement Method General appearance: obese, alert, awake Cardiovascular: pedal pulses present, pedal dilcia a Respiratory: on oxygen, decreased breath sounds Extremities: decreased range of motion, edema Musculoskeletal: decreased ROM Neuro/REFERRAL COORDINATOR: alert, normal speech Skin: there are a few dry sc abs on anterior right alanis. No weeping, no rash, no open wounds. Soles of feet are cracked and dried out. Psychiatry: normal mood Results Findings/Data: Laboratory Tests Test Result Date Time Chemistry Sodium (134.0 - 147.0 mmol/l) 132 L 05/31 1037 Potassium (3.6 - 5.2 mmol/L) 4.4 05/31 1037 Chloride (98.0 - 107.0 mmol/l) 96 L 05/31 1037 Carbon Dioxide (21.0 - 33.0 mmol/l) 29.1 05/31 1037 Anion Gap (0 - 20) 11.3 05/31 1037 BUN (7.0 - 18.0 mg/dl) 11 05/31 1037 Creatinine (0.60 - 1.30 mg/dL) 0.55 L 05/31 103 7 Est GFR ( Amer) (115 - 127 mL/min) 157 H 05/31 1037 Est GFR (Non-Af Amer) (95 - 105 mL/min) 129 H 0 05/31 1037 Glucose (70.0 - 110.0 mg/dl) 226 H 05/31 1037 POC Glucose (70 - 110 mg/dL) 194 H 05/31 1212 Hemoglobin A1c (4.8 - 6.0 %A1C) 8.6 H 103 7 Estim Average Glucose (MG/DL) 200 03/12 1037 Calcium (8.0 - 10.5 mg/dl) 8.6 03/12 1037 Total Creatine Kinase (21 - 215 Units/L) 108 0 3/12 1037 Troponin I (0.00 - 0.06 NG/ML) <0.02 03/ 1037 B-Natriuretic Peptide (5 - 100 PG/ML) 36.1 03/ 2 0029 TSH (0.47 - 5.01 IU/ML) 2.48 03/ 1037 Coagulation INR (0.89 - 1.14) 1.1 03 0029 PTT (Ocean) (25.86 - 36.07 SECONDS) 33.60 / 0029 PT Patient/Control Mix (9.9 - 12.8 SECONDS) 12. 4 / 0029 D-Dimer (0 - 500 ng/mLFEU) 868 *H 05/31 0029 Hematology WBC (4.5 - 11.0 K/mm3) 7.1 05/31 0029 RBC (3.80 - 5.20 M/mm3) 4.07 03 0029 Hgb (12.0 - 16.0 gm/dL) 11.8 L / 0029 Hct (36.0 - 48.0 %) 35.7 L 05/31 0029 MCV (82.0 - 99.0 UM3) 87.7 03/ 0029 MCH (25.5 - 32.5 UUG) 29.0 03/ 0029 MCHC (29.0 - 35.5 gm/dL) 33.1 05/31 0029 RDW (11.5 - 15.0 %) 13.3 03/ 0029 Plt Count (150 - 400 K/mm3) 223 03/ 0029 MPV (7.4 - 10.4 fl) 9.8 03/ 0029 Neut % (Auto) (49.0 - 76.0 %) 62.1 / 0029 Lymph % (Auto) (23.0 - 38.0 %) 27.2 03/ 0029 Merrick % (Auto) (1.0 - 10.0 %) 6.1 05/31 0029 Eos % (Auto) (1.0 - 5.0 %) 3.3 05/31 0029 Baso % (Auto) (0.0 - 1.0 %) 0.7 / 0029 Neut # (Auto) (2.4 - 6.3 K/mm3) 4.4 / 0029 Lymph # (Auto) (1.2 - 4.0 K/mm3) 1.9 / 0029 Merrick # (Auto) (0.0 - 0.6 K/mm3) 0.4 / 0029 Eos # (Auto) (0.0 - 0.7 K/MM3) 0.2 / 0029 Baso # (Auto) (0.0 - 0.2 K/mm3) 0.1 / 0029 Absolute Nucleated RBC (0.00 - 0.01 X10 3uL) 0. 00 / 0029 Immature Gran % (0.0 - 0.4 %) 0.6 H / 002 Nucleated RBC % (0.0 - 0.1 %) 0.0 / 0029 Immature Gran # (0.00 - 0.07 x10 3/uL) 0.04 / 0029 Results: labs reviewed, vital signs stable, curr ent med profile rev'd Diagnosis, Assessment Plan Problem List/A P: 1. Edema of both lower legs due to peripheral v enous insufficiency 2. Bilateral lower extremity edema 3. Morbid obesity 4. SOB (shortness of breath) Free Text A P: Discussed plan of care with patient and staff. Patient is morbidly obese an d suffers from many things, but not true lymphadema. She has venous insufficiency related to her obesity and chronic BLE edema. There is no dermatitis or cellulitis to lower extremit ies, but she would greatly benefit from compression garments. She says she has tried knee high socks in past, but she is too big for commercial stockings. She is not too big for leg wrapping, but she cannot perform herself due to obesity. Will ask nursing to be kind enough to wa sh her feet and legs, apply Venelex to help with microcirculation and start compression wrapping from toes to knees with kerlix and RUSSELL wraps. She agreed to try, bu t says "stuff on my feet and legs makes me claustrophobic". CPOE entered for leg wrapping and ok to dc from my standpoint with wrapping supplies and instructions. Orders: Procedure Date/time Status Wound Care 05/31 1933 Active OK to DC/TXFER from Consult 05/31 1933 Active Electronically Signed by Em Morales NP on 06/01 at 0711 [facility][id number] END OF REPORT 2020-05-31 14:31:00-00:00 [id number] [facility] and [place] [address] [address] [place] [address] PATIENT NAME: LEIGH FRYE ADMIT DATE: 05/31/20 ACCOUNT NO: [id number] ROOM NO: CARLOS AGE: 40 REPORT TYPE: ECHOCARDIOGRAM REPORT DATE OF : 80 SEX: F ADMITTING PHYSICIAN:Rosa Llamas MD ATTENDING PHYSICIAN:Rosa Llamas MD *[facility]* [facility] [address]att [place] [address] Transthoracic Echocardiogram Patient: Leigh Frye Study Date: 05/31/2020 BP: 145 / 77 Location: [place] CMN URN: [id number] : 1980 Age: 40 Height: 72 in / 182.9 cm Gender: F Weight: 511 .9 lb / 232.7 kg BMI/BSA: 69.6 kg/m 2 / 3.18 m 2 *Ordering Physician: * Harsh Merchant *Interpreting Physician: * Carmela Junior *Community Development Coordinator: * Rose Pollard, REBA Indications: Chest Pain, unspecified. Study data: Transthoracic echocardiogram. Proced ure: Transthoracic echocardiography was performed. Image quality wa s suboptimal. The study was technically limited due to body habitus. Int ravenous contrast (Definity) was administered. Complete 2D, comple te spectral Doppler, and color Doppler. Location: Emergency [facility] Patient status: Inpatient. Patient room number: 17. Findings Left ventricle: The cavity size is mildly dilate d. Wall thickness is moderately increased. Systolic function is elton l. The estimated ejection fraction is 55-60%. Wall motion is norm al; there are no regional wall motion abnormalities. Doppler para meters are consistent with abnormal left ventricular relaxation (grade 1 diastolic PATIENT NAME: LEIGH FRYE dysfunction). Right ventricle: Not well visualized. The cavity size is normal. Systolic function is normal. Left atrium: The atrium is dilated. Right atrium: Not well visualized. The atrium is normal in size. Aorta: Aortic root: The aortic root is normal in size. Aortic valve: Not well visualized. The valve is structurally normal. The valve is trileaflet. There is no evidence of stenosis. There is no regurgitation. Mitral valve: Not well visualized. The valve is structurally normal. There is no evidence of stenosis. There is no r egurgitation. Tricuspid valve: Not well visualized. The valve is structurally normal. There is no regurgitation. Pulmonic valve: The valve is structurally normal . There is no regurgitation. Pericardium: There is no pericardial effusion. Pulmonary arteries: The main pulmonary artery is normal-sized. Systemic veins: Inferior vena cava: The vessel is normal in size . Measurements Left ventricle Value 08/26/2018 Ref CELESTINO, LAX 4.9 cm 5.4 3.8 - 5.2 ESD, LAX 3.7 cm 3.4 2.2 - 3.5 ESD/bsa, 1.2 cm/m 2 1.1 1.3 LAX - 2.1 FS, LAX 26 % 37 27 - 45 ESD/bsa 2.1 cm/m 2 ---- major ax, A4C CELESTINO/bsa 2.1 cm/m 2 ---- minor ax, A4C CELESTINO major 8.1 cm ---- ax, A2C CELESTINO/bsa 2.5 cm/m 2 ---- major ax, A2C PW, ED 1.5 cm 0.7 0.6 - 0.9 IVS/PW, ED 0.98 1.35 ---- EF 50 % 66 54 - 74 E', lat 15.1 cm/sec >=10 edwin, TDI .0 E/e', lat 5 ---- PATIENT NAME: LEIGH FRYE edwin, TDI E', med 9.5 cm/sec >=7. edwin, TDI 0 E/e', med 7 ---- edwin, TDI E', avg, 12.3 cm/sec ---- TDI E/e', avg, 6 <=14 TDI LVOT Value 08/26/2018 Ref Diam, S 2.12 cm 2.07 ---- Area 3.5 cm 2 3.4 ---- Peak chandan, 1.11 m/sec 1.35 ---- S Mean chandan, 0.74 m/sec 0.84 ---- S VTI, S 22.7 cm 24.4 ---- Peak grad, 5 mm Hg 7 ---- S Mean grad, 3 mm Hg 4 ---- S SV 80 ml 82 ---- Qs 6.91 L/min 5.54 ---- Qs/bsa 2.2 L/(min-m 2) 1.7 ---- SV/bsa 25 ml/m 2 26 ---- Ventricular septum Value 08/26/2018 Ref IVS, ED 1.5 cm 1.0 0.6 - 0.9 RVOT Value 08/26/2018 Ref Peak v, S 0.97 m/sec 0.97 ---- Peak grad, 4 mm Hg 4 ---- S Left atrium Value 08/26/2018 Ref AP dim, ES 4.06 cm 4.06 2.70 - 3.80 Aortic valve Value 08/26/2018 Ref Peak v, S 1.34 m/sec 1.58 ---- Mean v, S 0.97 m/sec 0.97 ---- VTI, S 22.4 cm 30.6 ---- Mean grad, 4.2 mm Hg 4.7 ---- S Peak grad, 7.2 mm Hg 10.0 ---- S LVOT/AV, 1.01 0.8 ---- VTI ratio DARRION, VTI 3.59 cm 2 2.69 ---- LVOT/AV, 0.83 0.85 ---- Vpeak ratio PATIENT NAME: LEIGH FRYE DARRION, Vmax 2.93 cm 2 2.88 ---- Mitral valve Value 08/26/2018 Ref Peak E 0.7 m/sec 0.88 ---- Peak A 0.77 m/sec 0.61 ---- Decel time 205 ms 192 ---- Peak E/A 0.9 1.45 ---- ratio Pulmonic valve Value 08/26/2018 Ref IN v, ED 0.86 m/sec 0.67 ---- Conclusions Summary: 1. Left ventricle: The cavity size is mildly dil ated. Wall thickness is moderately increased. Systolic function is norm al. The estimated ejection fraction is 55-60%. Wall motion is nor mal; there are no regional wall motion abnormalities. Doppler par ameters are consistent with abnormal left ventricular relaxation (grad e 1 diastolic dysfunction). 2. Left atrium: The atrium is dilated. 3. Pericardium, extracardiac: There is no perica rdial effusion. 4. No significant valve disease identified by do fermin. Prepared and electronically signed by Sayda Junior MD 05/31/2020 14:31 at 1431 PATIENT NAME: LEIGH FRYE 2020-05-31 11:57:00-00:00 [facility] ([facility] Cardiology Consultation REPORT#:[id number] REPORT STATUS: Signed DATE:05/31/20 TIME: 1157 PATIENT: LEIGH FRYE UNIT #: [id number] ROOM/BED: [place] [address] : [birth year] AGE: 40 SEX: F ATTEND: Kavitha Llamas MD ADM AUTHOR: Harsh Merchant VISITOR SERVICES TECHNICIAN * ALL edits or amendments must be made on the Bio[employer]/computer document * Harsh Merchant 05/31/20 1157: History of Present Illness HPI Reason for consult: Chest pain Free Text HPI Notes Free Text HPI Notes: This is a 40-year-old patient with past medical history of diastolic CHF, chronic lymphedema, A. fib on Eliquis, hyperlipi demia, hypertension, diabetes mellitus, obesity, pitituary adenoma, anxiety, bipolar disorder, PTSD presented to the hospital with left-si ded sharp 8/10 chest pain without radiation.Also c/o leg edema and shortness of breath. Patie nt denies nausea, vomiting, heartburn, orthopnea, PND, dizziness, fevers, wheezing. Patient was discharged from [facility] yesterday where she spent 2 months for her anxiety bipolar disorder. She reports she had normal Left heart catheteriz ation on 05/2019 at [facility]. Work-up in ER showed stable blood pressure, sodium 133, potassium 3.1, negative troponin and EKG showed NSR no St changes , D-dimer 868, CTA chest negative for PE , BNP 361 History - Adult longitudinal Past medical history: Reports: Cancer (pituitaty ( remission) ), Hypertension, Kidney disease/stones ( kindey stones and ESRD), Thyroid disorder. Additional medical history: PE, PNA, bipolar disorder, PTSD, anxiety, depres sriram, CHF, A. fib, diabetes mellitus type 2, coronary artery disease, kidne y stones Past surgical history: Reports: Lithotripsy. Additional surgical history: Lap band, pituitary surgery for pituitary mass Lithotripsy Appendectomy Partial colonic resection Additional family history: Noncontributory Alcohol use: Denies EtOH use Drug use: Denies recreational drugs Smoking status: Smoking status for patients 13 years old or old er: Never Smoker Home medications: Home Medications: ATORVASTATIN (LIPITOR) 40 MG PO BEDTIME hydrOXYzine HCL (ATARAX) 50 MG PO DAILY PRN PRN SLEEP METOPROLOL TARTRATE (LOPRESSOR) 25 MG PO BID VITAMIN B12/VIT B6/VIT B2/LMEFO (CEREFOLIN) 1 TA B PO DAILY IRON 18 MG PO DAILY HYDROCORTISONE (CORTEF) 10 MG PO BID AC MONTELUKAST (SINGULAIR) 10 MG PO BEDTIME ESCITALOPRAM (LEXAPRO) 40 MG PO DAILY LISINOPRIL/HCTZ (ZESTORETIC 20/25 MG) 1 TAB PO D AILY OMEPRAZOLE ER (PriLOSEC) 40 MG PO DAILY LORATADINE (CLARITIN) 10 MG PO DAILY CEPHALEXIN (KEFLEX) 500 MG PO Q12H oxyCODONE HCL/ACETAMINOPHEN (PERCOCET 5/325 MG) 1 TAB PO Q8H PRN PRN POST OP HEADACHE APIXABAN (ELIQUIS) 5 MG PO BID Allergies: Coded Allergies: No Known Allergies (08/25/18) Review of Systems Cardiovascular: Reports: chest pain, dyspnea on exertion, edema. All systems rev neg: except as marked Objective General VS/I O: Vital Signs: Date Time Temp Pulse Resp B/P B/P Pulse O2 O2 F low FiO2 Mean Ox Delivery Rate 05/31 0205 36.9 93 23 145/77 99 98 Room air 05/31 0024 98 05/30 2346 37.3 97 20 149/97 114 100 Room air 24 hour I O ending at 0700: 05/31 0700 05/30 1900 Intake Total Output Total Balance Patient 232.727 kg Weight Weight Stated/Reported Measurement Method PATIENT WEIGHT: Weight (lb): Weight (oz): Weight (kg): 232.727 Medications: Active Meds + DC'd Last 24 Hrs Apixaban 5 MG BID PO Atorvastatin Calcium 40 MG BEDTIME PO Montelukast Sodium 10 MG BEDTIME PO Citalopram Hydrobromide 40 MG DAILY PO Furosemide 40 MG BID 9A 5P IV Potassium Chloride 40 MEQ ONCE ONE PO (DC) Hydrocortisone 10 MG BID AC PO Hydroxyzine HCl 50 MG DAILY PRN PRN PO Loratadine 10 MG DAILY PO Metoprolol Tartrate 25 MG BID PO Oxycodone/Acetaminophen 1 TAB Q8H PRN PRN PO Pantoprazole 40 MG DAILY@0600 PO Perflutren Lipid Microsphere 1.5 ML .STK-MED ONE IV (DC) Insulin Human Lispro SLIDING SCALE AC HS SUBQ Apixaban 5 MG NOW ONE PO (DC) Acetaminophen 650 MG Q4H PRN PRN PO Dextrose/Water 125 ML ASDIR PRN IV Dextrose/Water 250 ML ASDIR PRN IV Glucagon 1 MG ASDIR PRN IM Ondansetron HCl 4 MG Q6H PRN PRN IV Iopamidol 0 .STK-MED ONE .ROUTE (DC) Potassium Chloride 40 MEQ X1ED STA PO (DC) Furosemide 60 MG X1ED STA IV (DC) Nitroglycerin 0.4 MG Q5M PRN PRN SL Physical Exam General appearance: alert, awake, oriented Head/Eyes: atraumatic ENT: moist mucosal membranes Neck: no bruit/NL carotids, no JVD Cardiovascular: CV assessment: regular rate and rhythm, normal heart sounds Respiratory: clear to auscultation, no distress Abdomen: soft, non-tender Genitourinary: no rubin Neuro/REFERRAL COORDINATOR: alert, oriented X 3, normal speech Psychiatry: normal affect Results Findings/Data: Laboratory Tests 05/31 05/31 1037 0029 Chemistry Sodium (134.0 - 147.0 mmol/l) 132 L 133 L Potassium (3.6 - 5.2 mmol/L) 4.4 3.1 L Chloride (98.0 - 107.0 mmol/l) 96 L 96 L Carbon Dioxide (21.0 - 33.0 mmol/l) 29.1 29.1 Anion Gap (0 - 20) 11.3 11.0 BUN (7.0 - 18.0 mg/dl) 11 15 Creatinine (0.60 - 1.30 mg/dL) 0.55 L 0.82 Est GFR ( Amer) (115 - 127 mL/min) 157 H 99 L Est GFR (Non-Af Amer) (95 - 105 mL/min) 129 H 8 2 L Glucose (70.0 - 110.0 mg/dl) 226 H 185 H Calcium (8.0 - 10.5 mg/dl) 8.6 9.4 Total Creatine Kinase (21 - 215 Units/L) 108 Troponin I (0.00 - 0.06 NG/ML) <0.02 <0.02 B-Natriuretic Peptide (5 - 100 PG/ML) 36.1 TSH (0.47 - 5.01 IU/ML) 2.48 Laboratory Tests 05/31 05/31 0029 0029 Coagulation INR (0.89 - 1.14) 1.1 PTT (Ocean) (25.86 - 36.07 SECONDS) 33.60 PT Patient/Control Mix (9.9 - 12.8 SECONDS) 12. 4 D-Dimer (0 - 500 ng/mLFEU) 868 *H Laboratory Tests 05/31 0029 Hematology WBC (4.5 - 11.0 K/mm3) 7.1 RBC (3.80 - 5.20 M/mm3) 4.07 Hgb (12.0 - 16.0 gm/dL) 11.8 L Hct (36.0 - 48.0 %) 35.7 L MCV (82.0 - 99.0 UM3) 87.7 MCH (25.5 - 32.5 UUG) 29.0 MCHC (29.0 - 35.5 gm/dL) 33.1 RDW (11.5 - 15.0 %) 13.3 Plt Count (150 - 400 K/mm3) 223 MPV (7.4 - 10.4 fl) 9.8 Neut % (Auto) (49.0 - 76.0 %) 62.1 Lymph % (Auto) (23.0 - 38.0 %) 27.2 Merrick % (Auto) (1.0 - 10.0 %) 6.1 Eos % (Auto) (1.0 - 5.0 %) 3.3 Baso % (Auto) (0.0 - 1.0 %) 0.7 Neut # (Auto) (2.4 - 6.3 K/mm3) 4.4 Lymph # (Auto) (1.2 - 4.0 K/mm3) 1.9 Merrick # (Auto) (0.0 - 0.6 K/mm3) 0.4 Eos # (Auto) (0.0 - 0.7 K/MM3) 0.2 Baso # (Auto) (0.0 - 0.2 K/mm3) 0.1 Absolute Nucleated RBC (0.00 - 0.01 X10 3uL) 0. 00 Immature Gran % (0.0 - 0.4 %) 0.6 H Nucleated RBC % (0.0 - 0.1 %) 0.0 Immature Gran # (0.00 - 0.07 x10 3/uL) 0.04 Laboratory Tests 05/31 05/31 1037 0029 Chemistry Troponin I (0.00 - 0.06 NG/ML) <0.02 <0.02 B-Natriuretic Peptide (5 - 100 PG/ML) 36.1 Radiology Data: Recent Impressions: RADIOLOGY - XR CHEST 1 V 05/31 0030 Report Impression - Status: SIGNED Entered: 05/31/2020 0104 IMPRESSION: No radiographic evidence of acute cardiopulmonar y process. Impression By: [email or web address] - Tanner Vaz M.D. CAT SCAN - CTA CHEST FOR PE 05/31 0127 Report Impression - Status: SIGNED Entered: 05/31/2020 0146 IMPRESSION: 1. No evidence of pulmonary embolus. Impression By: [email or web address] - Ko Friedman M.D. Diagnosis, Assessment Plan Free Text DxA P Notes Free Text DxA P Notes: Assessment and plan:his is a 40-year-old patient with past medical history of diastolic CHF, chronic lymphedema, A. fib on Araceli barbara, hyperlipidemia, hypertension, diabetes mellitus, obesity, pititu martha adenoma came with chest pain . 1. Chest pain are typical EKG shows norm al sinus rhythm no acute ST-T changes, CTA chest negative for PE troponins x2 are negat thomas [place] is ruled out. Will review [facility] records she reports she had a normal left heart cath 2019. We will get an echocardiogram to check LV function. 2. History of A. fib sinus rhythm on evaluation, we will continue Eliquis 3. Chronic lymphedema will continue diuretics 4. Hypertension we will resume home medication POC discussed with Dr. Rivera Thank you very much for the consult will follow with you Nigel Junior 05/31/20 1703: Attestations Physician Attestation Agree w/findings plan: I have seen and examined the patient at bedside. I have reviewed the relevant test results and formulated the assessment and p nola. I agree with the note by Harsh Merchant NP. at 1713 Electronically Signed by Harsh Merchant NP on at 1706 RPT #:[id number] END OF REPORT 2020-05-31 11:57:00-00:00 [facility] ([facility]) Cardiology Consultation REPORT#:[id number] REPORT STATUS: Signed DATE:05/31/20 TIME: 1156 PATIENT: LEIGH FRYE UNIT #: [id number] ROOM/BED: [place] [address] : 80 AGE: 40 SEX: F ATTEND: Kavitha Llamas MD ADM AUTHOR: Harsh Merchant NP * ALL edits or amendments must be made on the [employer]/computer document * Harsh Merchant 05/31/20 1157: History of Present Illness HPI Reason for consult: Chest pain Free Text HPI Notes Free Text HPI Notes: This is a 40-year-old patient with past medical history of diastolic CHF, chronic lymphedema, A. fib on Eliquis, hyperlipi demia, hypertension, diabetes mellitus, obesity, pitituary adenoma, anxiety, bipolar disorder, PTSD presented to the hospital with left-si ded sharp 8/10 chest pain without radiation.Also c/o leg edema and shortness of breath. Patie nt denies nausea, vomiting, heartburn, orthopnea, PND, dizziness, fevers, wheezing. Patient was discharged from [facility] yesterday where she spent 2 months for her anxiety bipolar disorder. She reports she had normal Left heart catheteriz ation on 05/2019 at [facility]. Work-up in ER showed stable blood pressure, sodium 133, potassium 3.1, negative troponin and EKG showed NSR no St changes , D-dimer 868, CTA chest negative for PE , BNP 361 History - Adult longitudinal Past medical history: Reports: Cancer (pituitaty ( remission) ), Hypertension, Kidney disease/stones ( kindey stones and ESRD), Thyroid disorder. Additional medical history: PE, PNA, bipolar disorder, PTSD, anxiety, depres sriram, CHF, A. fib, diabetes mellitus type 2, coronary artery disease, kidne y stones Past surgical history: Reports: Lithotripsy. Additional surgical history: Lap band, pituitary surgery for pituitary mass Lithotripsy Appendectomy Partial colonic resection Additional family history: Noncontributory Alcohol use: Denies EtOH use Drug use: Denies recreational drugs Smoking status: Smoking status for patients 13 years old or old er: Never Smoker Home medications: Home Medications: ATORVASTATIN (LIPITOR) 40 MG PO BEDTIME hydrOXYzine HCL (ATARAX) 50 MG PO DAILY PRN PRN SLEEP METOPROLOL TARTRATE (LOPRESSOR) 25 MG PO BID VITAMIN B12/VIT B6/VIT B2/LMEFO (CEREFOLIN) 1 TA B PO DAILY IRON 18 MG PO DAILY HYDROCORTISONE (CORTEF) 10 MG PO BID AC MONTELUKAST (SINGULAIR) 10 MG PO BEDTIME ESCITALOPRAM (LEXAPRO) 40 MG PO DAILY LISINOPRIL/HCTZ (ZESTORETIC 20/25 MG) 1 TAB PO D AILY OMEPRAZOLE ER (PriLOSEC) 40 MG PO DAILY LORATADINE (CLARITIN) 10 MG PO DAILY CEPHALEXIN (KEFLEX) 500 MG PO Q12H oxyCODONE HCL/ACETAMINOPHEN (PERCOCET 5/325 MG) 1 TAB PO Q8H PRN PRN POST OP HEADACHE APIXABAN (ELIQUIS) 5 MG PO BID Allergies: Coded Allergies: No Known Allergies (08/25/18) Review of Systems Cardiovascular: Reports: chest pain, dyspnea on exertion, edema. All systems rev neg: except as marked Objective General VS/I O: Vital Signs: Date Time Temp Pulse Resp B/P B/P Pulse O2 O2 F low FiO2 Mean Ox Delivery Rate 05/31 0205 36.9 93 23 145/77 99 98 Room air 05/31 0024 98 05/30 2346 37.3 97 20 149/97 114 100 Room air 24 hour I O ending at 0700: 05/31 0700 05/30 1900 Intake Total Output Total Balance Patient 232.727 kg Weight Weight Stated/Reported Measurement Method PATIENT WEIGHT: Weight (lb): Weight (oz): Weight (kg): 232.727 Medications: Active Meds + DC'd Last 24 Hrs Apixaban 5 MG BID PO Atorvastatin Calcium 40 MG BEDTIME PO Montelukast Sodium 10 MG BEDTIME PO Citalopram Hydrobromide 40 MG DAILY PO Furosemide 40 MG BID 9A 5P IV Potassium Chloride 40 MEQ ONCE ONE PO (DC) Hydrocortisone 10 MG BID AC PO Hydroxyzine HCl 50 MG DAILY PRN PRN PO Loratadine 10 MG DAILY PO Metoprolol Tartrate 25 MG BID PO Oxycodone/Acetaminophen 1 TAB Q8H PRN PRN PO Pantoprazole 40 MG DAILY@0600 PO Perflutren Lipid Microsphere 1.5 ML .STK-MED ONE IV (DC) Insulin Human Lispro SLIDING SCALE AC HS SUBQ Apixaban 5 MG NOW ONE PO (DC) Acetaminophen 650 MG Q4H PRN PRN PO Dextrose/Water 125 ML ASDIR PRN IV Dextrose/Water 250 ML ASDIR PRN IV Glucagon 1 MG ASDIR PRN IM Ondansetron HCl 4 MG Q6H PRN PRN IV Iopamidol 0 .STK-MED ONE .ROUTE (DC) Potassium Chloride 40 MEQ X1ED STA PO (DC) Furosemide 60 MG X1ED STA IV (DC) Nitroglycerin 0.4 MG Q5M PRN PRN SL Physical Exam General appearance: alert, awake, oriented Head/Eyes: atraumatic ENT: moist mucosal membranes Neck: no bruit/NL carotids, no JVD Cardiovascular: CV assessment: regular rate and rhythm, normal heart sounds Respiratory: clear to auscultation, no distress Abdomen: soft, non-tender Genitourinary: no rubin Neuro/REFERRAL COORDINATOR: alert, oriented X 3, normal speech Psychiatry: normal affect Results Findings/Data: Laboratory Tests 05/31 05/31 1037 0029 Chemistry Sodium (134.0 - 147.0 mmol/l) 132 L 133 L Potassium (3.6 - 5.2 mmol/L) 4.4 3.1 L Chloride (98.0 - 107.0 mmol/l) 96 L 96 L Carbon Dioxide (21.0 - 33.0 mmol/l) 29.1 29.1 Anion Gap (0 - 20) 11.3 11.0 BUN (7.0 - 18.0 mg/dl) 11 15 Creatinine (0.60 - 1.30 mg/dL) 0.55 L 0.82 Est GFR ( Amer) (115 - 127 mL/min) 157 H 99 L Est GFR (Non-Af Amer) (95 - 105 mL/min) 129 H 8 2 L Glucose (70.0 - 110.0 mg/dl) 226 H 185 H Calcium (8.0 - 10.5 mg/dl) 8.6 9.4 Total Creatine Kinase (21 - 215 Units/L) 108 Troponin I (0.00 - 0.06 NG/ML) <0.02 <0.02 B-Natriuretic Peptide (5 - 100 PG/ML) 36.1 TSH (0.47 - 5.01 IU/ML) 2.48 Laboratory Tests 05/31 05/31 0029 0029 Coagulation INR (0.89 - 1.14) 1.1 PTT (Shira) (25.86 - 36.07 SECONDS) 33.60 PT Patient/Control Mix (9.9 - 12.8 SECONDS) 12. 4 D-Dimer (0 - 500 ng/mLFEU) 868 *H Laboratory Tests 05/31 0029 Hematology WBC (4.5 - 11.0 K/mm3) 7.1 RBC (3.80 - 5.20 M/mm3) 4.07 Hgb (12.0 - 16.0 gm/dL) 11.8 L Hct (36.0 - 48.0 %) 35.7 L MCV (82.0 - 99.0 UM3) 87.7 MCH (25.5 - 32.5 UUG) 29.0 MCHC (29.0 - 35.5 gm/dL) 33.1 RDW (11.5 - 15.0 %) 13.3 Plt Count (150 - 400 K/mm3) 223 MPV (7.4 - 10.4 fl) 9.8 Neut % (Auto) (49.0 - 76.0 %) 62.1 Lymph % (Auto) (23.0 - 38.0 %) 27.2 Merrick % (Auto) (1.0 - 10.0 %) 6.1 Eos % (Auto) (1.0 - 5.0 %) 3.3 Baso % (Auto) (0.0 - 1.0 %) 0.7 Neut # (Auto) (2.4 - 6.3 K/mm3) 4.4 Lymph # (Auto) (1.2 - 4.0 K/mm3) 1.9 Merrick # (Auto) (0.0 - 0.6 K/mm3) 0.4 Eos # (Auto) (0.0 - 0.7 K/MM3) 0.2 Baso # (Auto) (0.0 - 0.2 K/mm3) 0.1 Absolute Nucleated RBC (0.00 - 0.01 X10 3uL) 0. 00 Immature Gran % (0.0 - 0.4 %) 0.6 H Nucleated RBC % (0.0 - 0.1 %) 0.0 Immature Gran # (0.00 - 0.07 x10 3/uL) 0.04 Laboratory Tests 05/31 05/31 1037 0029 Chemistry Troponin I (0.00 - 0.06 NG/ML) <0.02 <0.02 B-Natriuretic Peptide (5 - 100 PG/ML) 36.1 Radiology Data: Recent Impressions: RADIOLOGY - XR CHEST 1 V 05/31 0030 Report Impression - Status: SIGNED Entered: 05/31/2020 0104 IMPRESSION: No radiographic evidence of acute cardiopulmonar y process. Impression By: [email or web address] - Tanner Vaz M.D. CAT SCAN - CTA CHEST FOR PE 05/31 0127 Report Impression - Status: SIGNED Entered: 05/31/2020 0146 IMPRESSION: 1. No evidence of pulmonary embolus. Impression By: [email or web address] - Ko Friedman M.D. Diagnosis, Assessment Plan Free Text DxA P Notes Free Text DxA P Notes: Assessment and plan:his is a 40-year-old patient with past medical history of diastolic CHF, chronic lymphedema, A. fib on Araceli barbara, hyperlipidemia, hypertension, diabetes mellitus, obesity, pititu martha adenoma came with chest pain . 1. Chest pain are typical EKG shows norm al sinus rhythm no acute ST-T changes, CTA chest negative for PE troponins x2 are negat thomas [place] is ruled out. Will review [facility] records she reports she had a normal left heart cath 2019. We will get an echocardiogram to check LV function. 2. History of A. fib sinus rhythm on evaluation, we will continue Eliquis 3. Chronic lymphedema will continue diuretics 4. Hypertension we will resume home medication POC discussed with Dr. Rivera Thank you very much for the consult will follow with you Nigel Junior 05/31/20 1703: Attestations Physician Attestation Agree w/findings plan: I have seen and examined the patient at bedside. I have reviewed the relevant test results and formulated the assessment and p nola. I agree with the note by Harsh Merchant NP. at 1713 RPT #:[id number] END OF REPORT 2020-05-31 10:54:00-00:00 [facility] ([facility]) Hospitalist History Physical REPORT#:[id number] REPORT STATUS: Signed DATE:05/31/20 TIME: 1054 PATIENT: LEIGH FRYE UNIT #: [id number] ROOM/BED: [place] [address] : 80 AGE: 40 SEX: F ATTEND: Kavitha Llamas MD ADM AUTHOR: Rosa Llamas MD * ALL edits or amendments must be made on the el [employer]/computer document * History of Present Illness HPI Chief complaint: Chest pain PCP: PCP: No Primary or Family Physician HPI: 40-year-old patient presented to the [facility] with left-sided sharp 8/10 chest pain without radiation. This was accompanied wit h leg edema and shortness of breath. Patient denies nausea, vomiting, heartburn, orthopnea, PND, dizziness, fevers, wheezing. Patient was discharged from [facility] yesterday where she spent 2 months for her anxiety bipolar disorder. Work-up in ER showed stable blood pressure, sodium 133, potassium 3.1, negative troponin and EKG, D-dimer 868, CTA chest negativ e for PE History Past Medical Surgical Hx Additional medical history: PE, PNA, bipolar disorder, PTSD, anxiety, depres sriram, CHF, A. fib, diabetes mellitus type 2, coronary artery disease, kidney stones Additional surgical history: Lap band, pituitary surgery for pituitary mass Lithotripsy Appendectomy Partial colonic resection Family History Additional family history: Noncontributory Social History Alcohol use: Denies EtOH use Drug use: Denies recreational drugs Smoking status: Smoking status for patients 13 years old or old er: Never Smoker Medication/Allergy-Vaccine Hx Allergies: Coded Allergies: No Known Allergies (08/25/18) Review of Systems Free Text ROS Notes Free Text ROS Notes: 14 point reviewed found to be negative except as mentioned in HPI Physical Exam VS/I O: Vital Signs Date Temp Pulse Resp B/P B/P Mean Pulse Ox FiO 2 05/30-05/31 36.9-37.3 93-97 20-23 145-149/77-97 99-114 98-100 Last Documented: Result Date Time Pulse Ox 98 05/31 0205 B/P 145/77 05/31 0205 B/P Mean 99 05/31 0205 O2 Delivery Room air 05/31 020 Temp 36.9 05/31 0205 Pulse 93 05/31 0205 Resp 23 05/31 0205 24 hour I O ending at 0700: 05/30 1900 05/31 0700 Intake Total Output Total Balance Patient 232.727 kg Weight Weight Stated/Reported Measurement Method Patient Weight and BMI Weight (kg): 232.727 BMI: 69.6 Results Findings/Data: Laboratory Tests: 05/31 05/31 0029 0029 Chemistry Sodium (134.0 - 147.0 mmol/l) 133 L Potassium (3.6 - 5.2 mmol/L) 3.1 L Chloride (98.0 - 107.0 mmol/l) 96 L Carbon Dioxide (21.0 - 33.0 mmol/l) 29.1 Anion Gap (0 - 20) 11.0 BUN (7.0 - 18.0 mg/dl) 15 Creatinine (0.60 - 1.30 mg/dL) 0.82 Est GFR ( Amer) (115 - 127 mL/min) 99 L Est GFR (Non-Af Amer) (95 - 105 mL/min) 82 L Glucose (70.0 - 110.0 mg/dl) 185 H Calcium (8.0 - 10.5 mg/dl) 9.4 Troponin I (0.00 - 0.06 NG/ML) <0.02 B-Natriuretic Peptide (5 - 100 PG/ML) 36.1 Coagulation INR (0.89 - 1.14) 1.1 PTT (Shira) (25.86 - 36.07 SECONDS) 33.60 PT Patient/Control Mix (9.9 - 12.8 SECONDS) 12. 4 D-Dimer (0 - 500 ng/mLFEU) 868 *H Hematology WBC (4.5 - 11.0 K/mm3) 7.1 RBC (3.80 - 5.20 M/mm3) 4.07 Hgb (12.0 - 16.0 gm/dL) 11.8 L Hct (36.0 - 48.0 %) 35.7 L MCV (82.0 - 99.0 UM3) 87.7 MCH (25.5 - 32.5 UUG) 29.0 MCHC (29.0 - 35.5 gm/dL) 33.1 RDW (11.5 - 15.0 %) 13.3 Plt Count (150 - 400 K/mm3) 223 MPV (7.4 - 10.4 fl) 9.8 Neut % (Auto) (49.0 - 76.0 %) 62.1 Lymph % (Auto) (23.0 - 38.0 %) 27.2 Merrick % (Auto) (1.0 - 10.0 %) 6.1 Eos % (Auto) (1.0 - 5.0 %) 3.3 Baso % (Auto) (0.0 - 1.0 %) 0.7 Neut # (Auto) (2.4 - 6.3 K/mm3) 4.4 Lymph # (Auto) (1.2 - 4.0 K/mm3) 1.9 Merrick # (Auto) (0.0 - 0.6 K/mm3) 0.4 Eos # (Auto) (0.0 - 0.7 K/MM3) 0.2 Baso # (Auto) (0.0 - 0.2 K/mm3) 0.1 Absolute Nucleated RBC (0.00 - 0.01 X10 3uL) 0. 00 Immature Gran % (0.0 - 0.4 %) 0.6 H Nucleated RBC % (0.0 - 0.1 %) 0.0 Immature Gran # (0.00 - 0.07 x10 3/uL) 0.04 Laboratory Tests 05/31/20 0029: [Embedded Image Not Available] Radiology data: Recent Impressions: RADIOLOGY - XR CHEST 1 V 05/31 0030 Report Impression - Status: SIGNED Entered: 05/31/2020 0104 IMPRESSION: No radiographic evidence of acute cardiopulmonar y process. Impression By: [email or web address] - Tanner Vaz M.D. CAT SCAN - CTA CHEST FOR PE 05/31 0127 Report Impression - Status: SIGNED Entered: 05/31/2020 0146 IMPRESSION: 1. No evidence of pulmonary embolus. Impression By: [email or web address] - Ko Friedman M.D. Free Text PE Notes Free Text PE Notes: PHYSICAL EXAMINATION General appearance: alert, awake, no acute dist ress Head/Eyes: atraumatic, normocephalic, PERRL, EO DE ENT: normal ear left, normal ear right, normal nose, normal pharynx Neck: full range of motion, supple/no meningism us Cardiovascular: normal S1/S2, regular rate rhyt hm Respiratory/chest: good breath sounds, symmetri c expansion, no distress Abdomen: soft, non-tender, normal bowel sounds Genitourinary: deferred Extremities: moves all, no clubbing, no cyanosi s, bilateral leg edema with erythema Musculoskeletal: full range of motion, normal i nspection Neuro/REFERRAL COORDINATOR alert, oriented X 3, CNII-XII intact Skin: dry, intact Psychiatry: normal affect, normal judgment/insi ght, normal mood Diagnosis, Assessment Plan Free Text A P: Chest pain Atypical First troponin negative CTA chest negative Cardiology consulted, echo pending Leg edema ?Diastolic CHF With component of lymphedema IV Lasix, home meds, fluid restriction, consult Ms. Em Moniqueanaya for lymphedema Hyponatremia Add IV Lasix Hypokalemia Replace Diabetes mellitus type 2 Sliding scale insulin History of PE on Eliquis, depression, anxiety, P TSD, A. fib Electronically Signed by Rosa Llamas MD on at 1058 [id number] END OF REPORT 2020-05-30 23:47:00-00:00 [facility] ([facility]) EMERGENCY PROVIDER REPORT REPORT#:[id number] REPORT STATUS: Signed DATE:05/30/20 TIME: 2346 PATIENT: LEIGH FRYE UNIT #: [id number] ROOM/BED: AGE: 40 SEX: F PCP PHYS: No Primary or Family Ph ysician SERVICE AUTHOR: Carl Lawson MD * ALL edits or amendments must be made on the [employer]/computer document * HPI-Chest Pain 40 and Over Free Text HPI Notes Free Text HPI Notes 40-year-old female with history of CHF, A. fib o n Eliquis, previous PE, lymphedema, brought in by EMS for chest pain. Ermias sparks does report previous history of DE. The patient reports 1 hour prior to arrival she started developing substernal chest pain that is sharp and radiates to the left chest. She reports the pain is 8 out of 10 and constant . She does report some mild nausea associated with the pain. Also reporting some shortness of breath. She denies any cough, fever, chills. She does report her leg swelling has been getting worse. EMS gave the patient aspirin and 1 sublingual nitroglycerin. General Confirmed Patient Yes Initial Greet Date/Time 05/30/202343 Presentation Chief Complaint Chest pain Sudden in Onset? Yes Onset Occurred Hours ago (1) Symptom Duration Since onset Progression since Onset Constant Radiation Does not radiate. )( Migration/Movement None Exacerbated by Nothing Relieved by Nothing Risk-Chest Pain 40 and Over Risk Stratification )( Coronary Artery Disease Risk factors reviewed )( Thoracic Aortic Dissection Risk factors revie wed )( Pulmonary Embolism Risk factors reviewed )( HEART for MACE )( HEART for MACE Response Value History Mod index of suspicion 1 ECG Interpretation Normal ECG 0 Age Age under 45 0 Risk Factors for CAD 3+ CAD risk factors 2 Troponin < or = to NL troponin 0 Total 3 HEART Score for MACE 0-3 (low risk 0.9%-1.7%) Review of Systems Free Text ROS Notes Free Text ROS Notes CONSTITUTIONAL: No fever, chills, fatigue. SKIN: No rash, abrasion ENT: No runny nose, congestion, sore throat. EYES: No vision loss, eye pain. CARDIOVASCULAR: Positive for chest pain. No palp itations or syncope. RESPIRATORY: Positive for shortness of breath. N o cough or wheezing. GASTROINTESTINAL: Nausea for nausea. No vomiting or abdominal pain. GENITOURINARY: No hematuria, dysuria. MUSKULOSKELETAL: No joint pain, joint swelling, back pain. NEUROLOGICAL: No headache, focal weakness, numbn ess. HEMATOLOGICAL: No bleeding, bruising. PSYCHIATRY: No agitation Past Medical History - Adult Stated Complaint CHEST PAIN Allergies Coded Allergies: No Known Allergies (08/25/18) Home Medications Active Scripts HYDROCORTISONE (CORTEF) 10 MG PO BID AC HYDROCORTISONE (CORTEF) 10 MG PO BID AC #60 TAB Ref 1 Prov: 09/13/18 MONTELUKAST (SINGULAIR) 10 MG PO BEDTIME MONTELUKAST (SINGULAIR) 10 MG PO BEDTIME #90 TA B Prov: 10/03/18 ESCITALOPRAM (LEXAPRO) 40 MG PO DAILY ESCITALOPRAM (LEXAPRO) 40 MG PO DAILY #60 TABS Ref 2 Prov: 10/03/18 LISINOPRIL/HCTZ (ZESTORETIC 20/25 MG) 1 TAB PO D AILY LISINOPRIL/HCTZ (ZESTORETIC 20/25 MG) 1 TAB PO DAILY #90 TABS Prov: 10/03/18 OMEPRAZOLE ER (PriLOSEC) 40 MG PO DAILY OMEPRAZOLE ER (PriLOSEC) 40 MG PO DAILY #90 CAP S Prov: 10/03/18 LORATADINE (CLARITIN) 10 MG PO DAILY LORATADINE (CLARITIN) 10 MG PO DAILY #90 TABS Prov: 10/03/18 CEPHALEXIN (KEFLEX) 500 MG PO Q12H CEPHALEXIN (KEFLEX) 500 MG PO Q12H #20 CAPS Prov: 10/03/18 oxyCODONE HCL/ACETAMINOPHEN (PERCOCET 5/325 MG) 1 TAB PO Q8H PRN PRN POST OP HEADACHE oxyCODONE HCL/ACETAMINOPHEN (PERCOCET 5/325 MG) 1 TAB PO Q8H PRN PRN POST OP HEADACHE #60 TABS Prov: 10/03/18 APIXABAN (ELIQUIS) 5 MG PO BID APIXABAN (ELIQUIS) 5 MG PO BID #60 TABS Ref 2 Prov: 10/03/18 Reported Medications ATORVASTATIN (LIPITOR) 40 MG PO BEDTIME hydrOXYzine HCL (ATARAX) 50 MG PO DAILY PRN PRN SLEEP METOPROLOL TARTRATE (LOPRESSOR) 25 MG PO BID VITAMIN B12/VIT B6/VIT B2/LMEFO (CEREFOLIN) 1 TA B PO DAILY IRON 18 MG PO DAILY Calculated Suicide Risk (nurs) Low risk Past Medical History: Reports: Cancer (pituitaty ( remission) ), Hypertension, Kidney disease/stones ( kindey stones and ESRD), Thyroid disorder. Additional Medical History PE, PNA Past Surgical History: Reports: Lithotripsy. Additional Surgical History Lap band, pituitary surgery Alcohol Use Denies EtOH use Drug Use Denies recreational drugs Smoking status: Smoking status for patients 13 years old or old er: Never Smoker Physical Exam Vital Signs Vital Signs First Documented: Result Date Time Pulse Ox 100 05/30 2346 B/P 149/97 05/30 2346 B/P Mean 114 05/30 2346 O2 Delivery Room air 05/30 234 Temp 37.3 05/30 2346 Pulse 97 05/30 2346 Resp 20 05/30 2346 Last Documented: Result Date Time Pulse Ox 98 05/31 0024 B/P 149/97 05/30 2346 B/P Mean 114 05/30 2346 O2 Delivery Room air 05/30 2345 Temp 37.3 05/30 2346 Pulse 97 05/30 2346 Resp 20 05/30 2346 Review of Vital Signs Reviewed Focused PE General/Const General/Const Awake, Alert, No acute distress Eyes Eyes PERRL, EOMI MS Neck Neck Supple, No meningismus, Full range of shonna on Resp/Chest Respiratory/Chest Breath sounds NL, Breath soun ds = bilat, No respiratory distress Cardiovascular Cardiovascular Heart rate NL, Regular rhythm, H eart sounds NL, No gallop, No murmurs, No rubs Abdomen/GI Abdomen/GI Soft, Non-tender, No guarding, No re bound MS Lower Extrem Text/Dict Notes Bilateral lower extremity lymphedema. Skin Skin Warm, Dry Neurologic Neurologic Oriented X3, Speech NL Additional PE MS Head Head Atraumatic, Normocephalic Ears/Nose/Throat Ears/Nose/Throat Airway patent, Mucous membrane s moist Interpretation Diagnostics Lab Results Interpretation Results Laboratory Tests 05/31/2028: [Embedded Image Not Available] Laboratory Tests: 05/31 0029 Chemistry Sodium (134.0 - 147.0 mmol/l) 133 L Potassium (3.6 - 5.2 mmol/L) 3.1 L Chloride (98.0 - 107.0 mmol/l) 96 L Carbon Dioxide (21.0 - 33.0 mmol/l) 29.1 Anion Gap (0 - 20) 11.0 BUN (7.0 - 18.0 mg/dl) 15 Creatinine (0.60 - 1.30 mg/dL) 0.82 Est GFR ( Amer) (115 - 127 mL/min) 99 L Est GFR (Non-Af Amer) (95 - 105 mL/min) 82 L Glucose (70.0 - 110.0 mg/dl) 185 H Calcium (8.0 - 10.5 mg/dl) 9.4 Troponin I (0.00 - 0.06 NG/ML) <0.02 B-Natriuretic Peptide (5 - 100 PG/ML) 36.1 Coagulation INR (0.89 - 1.14) 1.1 PTT (Ocean) (25.86 - 36.07 SECONDS) 33.60 PT Patient/Control Mix (9.9 - 12.8 SECONDS) 12. 4 D-Dimer (0 - 500 ng/mLFEU) 868 *H Hematology WBC (4.5 - 11.0 K/mm3) 7.1 RBC (3.80 - 5.20 M/mm3) 4.07 Hgb (12.0 - 16.0 gm/dL) 11.8 L Hct (36.0 - 48.0 %) 35.7 L MCV (82.0 - 99.0 UM3) 87.7 MCH (25.5 - 32.5 UUG) 29.0 MCHC (29.0 - 35.5 gm/dL) 33.1 RDW (11.5 - 15.0 %) 13.3 Plt Count (150 - 400 K/mm3) 223 MPV (7.4 - 10.4 fl) 9.8 Neut % (Auto) (49.0 - 76.0 %) 62.1 Lymph % (Auto) (23.0 - 38.0 %) 27.2 Merrick % (Auto) (1.0 - 10.0 %) 6.1 Eos % (Auto) (1.0 - 5.0 %) 3.3 Baso % (Auto) (0.0 - 1.0 %) 0.7 Neut # (Auto) (2.4 - 6.3 K/mm3) 4.4 Lymph # (Auto) (1.2 - 4.0 K/mm3) 1.9 Merrick # (Auto) (0.0 - 0.6 K/mm3) 0.4 Eos # (Auto) (0.0 - 0.7 K/MM3) 0.2 Baso # (Auto) (0.0 - 0.2 K/mm3) 0.1 Absolute Nucleated RBC (0.00 - 0.01 X10 3uL) 0. 00 Immature Gran % (0.0 - 0.4 %) 0.6 H Nucleated RBC % (0.0 - 0.1 %) 0.0 Immature Gran # (0.00 - 0.07 x10 3/uL) 0.04 Recent Impressions: RADIOLOGY - XR CHEST 1 V 05/31 0030 Report Impression - Status: SIGNED Entered: 05/31/2020 0104 IMPRESSION: No radiographic evidence of acute cardiopulmonar y process. Impression By: [email or web address] Robert Vaz M.D. CAT SCAN - CTA CHEST FOR PE 05/31 0127 Report Impression - Status: SIGNED Entered: 05/31/2020 0146 IMPRESSION: 1. No evidence of pulmonary embolus. Impression By: [email or web address] - Ko Friedman M.D. Lab Imaging Statement Laboratory radiographic studies reviewed and con sidered in the medical decision-making. Point of Care Testing Pulse Oximetry Pulse Ox % 100 On: Room air Interpretation Interpreted by me Pulse oximetr y normal Time 2346 ECG #1 Interpretation Text/Dict Note EKG interpreted me on May 31 at 12:30 AM. Norm al sinus rhythm ventricular rate 96. No STEMI. Normal axis. Normal QRS durat ion. Slightly prolonged QTC with interval 480. Re-Evaluation MDM Free Text MDM Notes Free Text MDM Notes 40-year-old female presenting here with chest pain. Troponin negative. Initial EKG nonischemic. Patient with elevated D-dimer. CTA chest obtained which was negative for PE. Given patie nt with significant risk factors including reported history of previous DE, will admit the patient f or ACS rule out. Patient verbalized understanding and is agreeable to rosa isela n. ED Course Medication(s) Ordered Medication(s) Ordered: Blood Formation,Coagulation Sig/Roshan Start time Last Medication Dose Route Stop Time Status Admin Apixaban 5 MG NOW ONE 05/310 UNV PO 05/31 0201 Cardiovascular Drugs Sig/Roshan Start time Last Medication Dose Route Stop Time Status Admin Nitroglycerin 0.4 MG Q5M PRN PRN 05/30 2345 AC SL 05/31 2344 Central Nervous System Agents Sig/Roshan Start time Last Medication Dose Route Stop Time Status Admin Acetaminophen 650 MG Q4H PRN PRN 05/31 0200 UNV PO 06/01 0056 Diagnostic Agents Sig/Roshan Start time Last Medication Dose Route Stop Time Status Admin Iopamidol 0 .STK-MED ONE 05/31 0129 DC .ROUTE Electrolytic, Caloric, And Yvette Sig/Roshan Start time Last Medication Dose Route Stop Time Status Admin Dextrose/Water 125 ML ASDIR PRN 05/31 0200 UNV IV 06/01 0056 Dextrose/Water 250 ML ASDIR PRN 05/31 0200 UNV IV 06/01 0056 Potassium Chloride 40 MEQ X1ED STA 05/31 0102 D C PO 05/31 0103 Furosemide 60 MG X1ED STA 05/30 2349 DC 05/31 IV 05/30 2350 0029 Gastrointestinal Drugs Sig/Roshan Start time Last Medication Dose Route Stop Time Status Admin Ondansetron HCl 4 MG Q6H PRN PRN 05/31 0200 UNV IV 06/01 0056 Hormones And Synthetic Substit Sig/Roshan Start time Last Medication Dose Route Stop Time Status Admin Insulin Human Lispro See Dose AC HS 05/31 0730 UNV Insts (1) SUBQ 06/01 0056 Glucagon 1 MG ASDIR PRN 05/31 0200 UNV IM 06/01 0056 Dose Instructions: (1)Insulin Human Lispro: SLIDING SCALE Patient Discharge Departure Vital Signs/Condition Vital Signs First Documented: Result Date Time Pulse Ox 100 05/30 2345 B/P 149/97 05/30 2345 B/P Mean 114 05/30 2346 O2 Delivery Room air 05/30 2345 Temp 37.3 05/30 234 Pulse 97 05/30 2346 Resp 20 05/30 2345 Last Documented: Result Date Time Pulse Ox 98 05/31 0024 B/P 149/97 05/306 B/P Mean 114 05/30 2345 O2 Delivery Room air 05/30 2345 Temp 37.3 05/30 234 Pulse 97 05/30 234 Resp 20 05/30 2345 All vital signs available at the time of this en try have been reviewed. Condition Stable Clinical Impression Clinical Impression Primary Impression: Chest pain Secondary Impressions: Lymphedema, SOB (shortnes s of breath) Disposition Decision Admit Admit Physician Name Rosa Llamas MD Admit Physician Hospitalist Request Time 158 Request Date 05/31/20 )( Admission Accepts Yes )( Accepted Time 158 )( Accepted Date 05/31/20 Discharge/Care Plan Admit Note I have spoken with the patie nt and/or caregivers. I have explained the patient's condition, diagnoses and cali atment plan based on the information available to me at this time. I have answered the patient's and/ or caregiver's questions and addressed any concerns. The patient and/or careg rosanna have as good an understanding of the patient 's diagnosis, condition and treatment plan as can be expected at this point. The patient has been stabilized within the capability of the emergency department. The patient wi ll be transported for further care and management or will be moved to an observation or inpatient service. I have communicated with the staff or medical p ractitioner taking over this patient's care. Quality Measures 12-Lead ECG for CP Performed documented Electronically Signed by Carl Lawson MD on at 0203 [facility][id number] END OF REPORT 2018-11-19 19:41:00-00:00 [id number] [place] [address] PATIENT NAME: LEIGH FRYE ADMIT DATE: 10/01/18 ACCOUNT NO: [id number] ROOM NO: [facility] AGE: 38 REPORT TYPE: DISCHARGE SUMMARY REPORT SEX: F ADMITTING PHYSICIAN:Jani Mckoy MD ATTENDING PHYSICIAN:Jani Mckoy MD ADMISSION DATE: 10/01/2018 DISCHARGE DATE: 10/03/2018 FINAL DIAGNOSES: Rhinorrhea not due to the CSF, postop transsphenoidal resection, pituitary adenoma, Dunreith's syndrome, diabetes mellitus, 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 ROBOTICS ENGINEER: Dr. Viera. Seizure disorder, recently was admitted with marry lemons, had a pituitary microadenoma. Clinically, she is a tall, obese w yordan, and after extensive testing and stabilization underwent transsphenoi orlando resection of adenoma and steps were taken ____ to prevent any CSF leak with extended surgery. Also, she had done well and recovered therapy and had gone home and ____ office, complained of clear drainage from the nose. She is instructed to notify. ____ observation and x-rays did not suggest that she was having any CSF leak, but were related to allergies. Imaging was n egative for any infection. The patient was ____ of the diagnosis that there was not any aphagia and she could restart her anticoagulant therapy, which was put on hold because of the suspicion and then she can be as active as she wants t o be. She is receiving anticoagulation with Eliquis for pulmonary embolism prev ention ____ medications in the family. ____ limited stamina. ____ followup and to PCP. Medication list per reconciliation sheet. Pulmonary embolism she had prior to the diagnosis of projected trauma, but tumor as described in the literature has unusual feature of Dunreith syndrome and can precede Eveline syndrome and in her case, it appears to be the case and at this point recommendation is for her to continue anticoagulation indefinitely. Dictated By: Jani Mckoy MD WT: DS:GISSELLE/YONATHAN/JERSON Conf#: [id number]/DID#: [id number] Authenticated by Jani Mckoy MD On 05:15:46 PM at 1716 PATIENT NAME: LEIGH FRYE 2018-10-19 05:18:00-00:00 [id number] [facility] [address] [place] [address] PATIENT NAME: LEIGH FRYE ADMIT DATE: 08/25/18 ACCOUNT NO: [id number] ROOM NO: [id number] AGE: 38 REPORT TYPE: DISCHARGE SUMMARY REPORT SEX: F ADMITTING PHYSICIAN:Jani Mckoy MD ATTENDING PHYSICIAN:Jani Mckoy MD ADMISSION DATE: 08/25/2018 DISCHARGE DATE: 09/13/2018 FINAL DIAGNOSES: Pituitary adenoma, corticotroph in secreting, , Cushingoid syndrome, aspiration pneumonia and respiratory f ailure, thyroid nodule, suspected adrenal nodule and parathyroid nodule, depression, esophagitis, migraine, vision loss, hypertension, his tory of pulmonary embolism, history of kidney stones, history of gastric band surgery. ROBOTICS ENGINEER: Dr. Viera, neurosurgery. PROCEDURES: Reduction of pituitary macro adenoma with decompression of chiasma, transsphenoidal approach, mi croscopic dissection and resection of nasal septum, cranioplasty of 5 to 6 cm re pair of CSF leak, stealth navigation, harvesting of fat for CSF leak repair. Second procedure fine needle biopsy of thyroid n odule. HOSPITAL COURSE: The patient is a 38-yea r-old female with increasing headaches diagnosed to have pituitary mass at [facility], referred to Dr. Viera for surgical intervention. Medical hist ory of pulmonary embolism; morbid obesity, in spite of bypass surgery; hype rtension; family history of parathyroid tumors and adrenal hyperplasia. The patient's original list are with pulmonary embolism, which the patient has m entioned as one of presenting features of cortical pituitary adenomas. advised risks and benefits of preoperatively. 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 Follow FN biopsy, which is follicular adenoma to be followed with surgery team and later on be cause of fever symptoms and pituitary adenoma and after stabilization with h olding off anticoagulant therapy, underwent transsphenoidal resection of the adenoma and decompression of chiasma. CSF leak was noted and it was repair ed using fat transplant and local packing with . The patient's postoperative course was unremarkable. She made good progress with therapy, started to ambulate. Pain was controlled. She had no CSF leak. Nasal packing was eventually removed, has satisfactory outcome, outpatient followup with Dr. Viera. She has been seen in consultation by general surgery in regard to the lap band issues. The patient was advised outpatient followup and then was decompressed by Dr. Hernandez . The port is at the appropriate site without in fection. He does not think the band needs to be removed. It is probably not the reason for her pain. The patient is ambulatory, she was advised to [facility] follow up on parathyroid nodule and further studies, CAT scan of the abd omen for pancreatic eval as well as adrenal adenoma work in progress, outpa tient followup. PATIENT NAME: LEIGH FRYE [facility] will see her in office for deciding when she can return to [facility]. Dictated By: Jani Mckoy MD WT: DS:GISSELLE/YONATHAN/JERSON Conf#: [id number]/DID#: [id number] Authenticated and Edited by Jani hauser MD On 10/19/18 3:02:28 PM at 1809 PATIENT NAME: LEIGH FRYE 2018-10-03 10:00:00-00:00 [facility] ([facility] Neurosurgical Progress Note REPORT#:[id number] REPORT STATUS: Signed DATE:10/03/18 TIME: 1000 PATIENT: LEIGH FRYE UNIT #: [id number] [facility] AGE: 38 SEX: F ATTEND: Johana Mckoy MD ADM AUTHOR: Tanya Rodriguez NP * ALL edits or amendments must be made on the el [employer]/computer document * Subjective Comments: Patient seen at the bedside. She was unable to c ollect any of the draining fluid that she has been noticing. Objective General VS/I O: Vital Signs Date Temp Pulse Resp B/P B/P Mean Pulse Ox FiO 2 10/02-10/03 97.7-98.6 72-78 13-14 95-125/58-74 70.8-90.8 95-99 24 hour I O ending at 0700: 10/03 0700 10/02 1900 Intake Total 800 Output Total 1200 Balance -400 Intake, Oral 800 Number Voids 2 Output, Urine 1200 Patient Weight Weight (lb): 424 Weight (oz): 14 Weight (kg): 192.720 Medications: Active Meds + DC'd Last 24 Hrs Montelukast Sodium 10 MG BEDTIME PO Furosemide 40 MG ONCE ONE PO (DC) Loratadine 10 MG DAILY PO Citalopram Hydrobromide 40 MG DAILY PO Vancomycin HCl 1,250 MG Q6H IV (DC) Sodium Chloride 250 ML Diphenhydramine HCl 25 MG Q6H PRN PRN PO Atorvastatin Calcium 40 MG BEDTIME PO Nystatin 1 XIANG TID TOPICAL (CKD) Fentanyl 12 MCG.PER.HR Q72H TRANSDERM (CKD) Hydrochlorothiazide 25 MG DAILY PO Hydrocortisone 10 MG BID AC PO Lisinopril 20 MG DAILY PO Metoprolol Tartrate 25 MG BID PO Pantoprazole 40 MG DAILY PO Hydroxyzine HCl 50 MG DAILY PRN PRN PO Oxycodone/Acetaminophen 1 TAB Q4H PRN PRN PO Miscellaneous Information 1 EACH ASDIR IV (DC) Physical Exam General appearance: alert, awake, oriented Neuro/REFERRAL COORDINATOR: alert, oriented X 3, CN II-XII intact, EOMI, PERRL, normal reflexes, normal speech, reflexes equal bilat, no motor de ficits, no sensory deficits Results Findings/Data: Laboratory Tests 10/03 050 Chemistry Sodium (137 - 145 MMOL/L) 141 Potassium (3.5 - 5.1 MMOL/L) 3.9 Chloride (98 - 107 MMOL/L) 104 Carbon Dioxide (22 - 30 MMOL/L) 30 Anion Gap (14 - 24 MMOL/L) 11 L BUN (7 - 17 MG/DL) 15 Creatinine (0.52 - 1.04 MG/DL) 0.70 Glomerular Filtr Rate > 60 Glucose (74 - 106 MG/DL) 102 Calcium (8.4 - 10.2 MG/DL) 9.2 Laboratory Tests 10/03 0508 Hematology WBC (3.8 - 9.8 K/MM3) 4.0 RBC (3.58 - 4.97 M/MM3) 4.15 Hgb (11.2 - 14.9 G/DL) 10.2 L Hct (33.2 - 43.5 %) 33.1 L MCV (80.7 - 99.1 fL) 80 L MCH (27.0 - 34.1 pg) 24.6 L MCHC (32.2 - 35.7 %) 30.8 L RDW (12.1 - 15.2 %) 23.9 H Plt Count (129 - 368 K/MM3) 219 MPV (7.4 - 10.4 fl) 10.1 Neut % (Auto) (43 - 75 %) 41.1 L Lymph % (Auto) (14 - 44 %) 40.8 Merrick % (Auto) (4 - 13 %) 8.2 Eos % (Auto) (0 - 6 %) 9.0 H Baso % (Auto) (0 - 2 %) 0.7 Neut # (Auto) (2.0 - 7.6 K/mm3) 1.65 L Lymph # (Auto) (1.0 - 3.8 K/mm3) 1.64 Merrick # (Auto) (0.1 - 0.8 K/mm3) 0.33 Eos # (Auto) (0.0 - 0.2 K/mm3) 0.36 H Baso # (Auto) (0.0 - 0.2 K/mm3) 0.03 Immature Gran % (0.0 - 2.0 %) 0.2 Nucleated RBC % (0 - 1.0 %) 0.0 Nucleated RBCs # (Man) (0.0 - 0.1 K/mm3) 0.00 Diagnosis, Assessment Plan Free Text A P: A: 38 year old female now 1 month s/p transsphen oidal resection of pituitary adenoma P: -She was unable to collect any drainage from her nose. It is unlikely that she is experiencing a CSF leak. -She is cleared for discharg e from a neurosurgica standpoint, but will recommend she still trend the leakage that she is experiencing and call the office should this begin to leak from her nose. Will recommend that she make a follow up in the clinic in 1 week Electronically Signed by Tanya Rodriguez NP on 05/10 at 1525 RPT #:[id number] END OF REPORT 2018-10-03 10:00:00-00:00 [facility] ([facility]) Neurosurgical Progress Note REPORT#:[id number] REPORT STATUS: Signed DATE:10/03/18 TIME: 999 PATIENT: LEIGH FRYE UNIT #: [id number] 86 ROOM/BED: [address] : 80 AGE: 38 SEX: F ATTEND: Johana Mckoy MD ADM AUTHOR: Tanya Rodriguez, VISITOR SERVICES TECHNICIAN * ALL edits or amendments must be made on the [employer]/computer document * Tanya Rodriguez NP 10/03/18 1000: Subjective Comments: Patient seen at the bedside. She was unable to c ollect any of the draining fluid that she has been noticing. Objective General VS/I O: Vital Signs Date Temp Pulse Resp B/P B/P Mean Pulse Ox FiO2 10/02-10/03 97.7-98.6 72-78 13-14 95-125/58-74 70.8-90.8 95-99 24 hour I O ending at 0700: 10/03 0700 10/02 1900 Intake Total 800 Output Total 1200 Balance -400 Intake, Oral 800 Number Voids 2 Output, Urine 1200 Patient Weight Weight (lb): 424 Weight (oz): 14 Weight (kg): 192.720 Medications: Active Meds + DC'd Last 24 Hrs Montelukast Sodium 10 MG BEDTIME PO Furosemide 40 MG ONCE ONE PO (DC) Loratadine 10 MG DAILY PO Citalopram Hydrobromide 40 MG DAILY PO Vancomycin HCl 1,250 MG Q6H IV (DC) Sodium Chloride 250 ML Diphenhydramine HCl 25 MG Q6H PRN PRN PO Atorvastatin Calcium 40 MG BEDTIME PO Nystatin 1 XIANG TID TOPICAL (CKD) Fentanyl 12 MCG.PER.HR Q72H TRANSDERM (CKD) Hydrochlorothiazide 25 MG DAILY PO Hydrocortisone 10 MG BID AC PO Lisinopril 20 MG DAILY PO Metoprolol Tartrate 25 MG BID PO Pantoprazole 40 MG DAILY PO Hydroxyzine HCl 50 MG DAILY PRN PRN PO Oxycodone/Acetaminophen 1 TAB Q4H PRN PRN PO Miscellaneous Information 1 EACH ASDIR IV (DC) Physical Exam General appearance: alert, awake, oriented Neuro/REFERRAL COORDINATOR: alert, oriented X 3, CN II-XII intact, EOMI, PERRL, normal reflexes, normal speech, reflexes equal bilat, no motor de ficits, no sensory deficits Results Findings/Data: Laboratory Tests 10/03 0502 Chemistry Sodium (137 - 145 MMOL/L) 141 Potassium (3.5 - 5.1 MMOL/L) 3.9 Chloride (98 - 107 MMOL/L) 104 Carbon Dioxide (22 - 30 MMOL/L) 30 Anion Gap (14 - 24 MMOL/L) 11 L BUN (7 - 17 MG/DL) 15 Creatinine (0.52 - 1.04 MG/DL) 0.70 Glomerular Filtr Rate > 60 Glucose (74 - 106 MG/DL) 102 Calcium (8.4 - 10.2 MG/DL) 9.2 Laboratory Tests 10/03 0508 Hematology WBC (3.8 - 9.8 K/MM3) 4.0 RBC (3.58 - 4.97 M/MM3) 4.15 Hgb (11.2 - 14.9 G/DL) 10.2 L Hct (33.2 - 43.5 %) 33.1 L MCV (80.7 - 99.1 fL) 80 L MCH (27.0 - 34.1 pg) 24.6 L MCHC (32.2 - 35.7 %) 30.8 L RDW (12.1 - 15.2 %) 23.9 H Plt Count (129 - 368 K/MM3) 219 MPV (7.4 - 10.4 fl) 10.1 Neut % (Auto) (43 - 75 %) 41.1 L Lymph % (Auto) (14 - 44 %) 40.8 Merrick % (Auto) (4 - 13 %) 8.2 Eos % (Auto) (0 - 6 %) 9.0 H Baso % (Auto) (0 - 2 %) 0.7 Neut # (Auto) (2.0 - 7.6 K/mm3) 1.65 L Lymph # (Auto) (1.0 - 3.8 K/mm3) 1.64 Merrick # (Auto) (0.1 - 0.8 K/mm3) 0.33 Eos # (Auto) (0.0 - 0.2 K/mm3) 0.36 H Baso # (Auto) (0.0 - 0.2 K/mm3) 0.03 Immature Gran % (0.0 - 2.0 %) 0.2 Nucleated RBC % (0 - 1.0 %) 0.0 Nucleated RBCs # (Man) (0.0 - 0.1 K/mm3) 0.00 Diagnosis, Assessment Plan Free Text A P: A: 38 year old female now 1 month s/p transsphen oidal resection of pituitary adenoma P: -She was unable to collect any drainage from her nose. It is unlikely that she is experiencing a CSF leak. -She is cleared for discharg e from a neurosurgica standpoint, but will recommend she still trend the leakage that she is experiencing and call the office should this begin to leak from her nose. Will recommend that she make a follow up in the clinic in 1 week Ozzy Viera 10/25/18 1341: Diagnosis, Assessment Plan Additional comments: Agree with above Electronically Signed by Tanya Rodriguez NP on 05/10 at 1525 RPT #:[id number] END OF REPORT 2018-10-03 10:00:00-00:00 [facility] ([facility]) Neurosurgical Progress Note REPORT#:[id number] REPORT STATUS: Signed DATE:10/03/18 TIME: 1000 PATIENT: LEIGH FRYE UNIT #: [id number] ROOM/BED: [address] : 80 AGE: 38 SEX: F ATTEND: Johana Mckoy MD ADM AUTHOR: Tanya Rodriguez NP * ALL edits or amendments must be made on the [employer]/computer document * Tanya Rodriguez NP 10/03/18 1000: Subjective Comments: Patient seen at the bedside. She was unable to c ollect any of the draining fluid that she has been noticing. Objective General VS/I O: Vital Signs Date Temp Pulse Resp B/P B/P Mean Pulse Ox FiO2 10/02-10/03 97.7-98.6 72-78 13-14 95-125/58-74 70.8-90.8 95-99 24 hour I O ending at 0700: 10/03 0700 10/02 1900 Intake Total 800 Output Total 1200 Balance -400 Intake, Oral 800 Number Voids 2 Output, Urine 1200 Patient Weight Weight (lb): 424 Weight (oz): 14 Weight (kg): 192.720 Medications: Active Meds + DC'd Last 24 Hrs Montelukast Sodium 10 MG BEDTIME PO Furosemide 40 MG ONCE ONE PO (DC) Loratadine 10 MG DAILY PO Citalopram Hydrobromide 40 MG DAILY PO Vancomycin HCl 1,250 MG Q6H IV (DC) Sodium Chloride 250 ML Diphenhydramine HCl 25 MG Q6H PRN PRN PO Atorvastatin Calcium 40 MG BEDTIME PO Nystatin 1 XIANG TID TOPICAL (CKD) Fentanyl 12 MCG.PER.HR Q72H TRANSDERM (CKD) Hydrochlorothiazide 25 MG DAILY PO Hydrocortisone 10 MG BID AC PO Lisinopril 20 MG DAILY PO Metoprolol Tartrate 25 MG BID PO Pantoprazole 40 MG DAILY PO Hydroxyzine HCl 50 MG DAILY PRN PRN PO Oxycodone/Acetaminophen 1 TAB Q4H PRN PRN PO Miscellaneous Information 1 EACH ASDIR IV (DC) Physical Exam General appearance: alert, awake, oriented Neuro/REFERRAL COORDINATOR: alert, oriented X 3, CN II-XII intact, EOMI, PERRL, normal reflexes, normal speech, reflexes equal bilat, no motor de ficits, no sensory deficits Results Findings/Data: Laboratory Tests 10/03 050 Chemistry Sodium (137 - 145 MMOL/L) 141 Potassium (3.5 - 5.1 MMOL/L) 3.9 Chloride (98 - 107 MMOL/L) 104 Carbon Dioxide (22 - 30 MMOL/L) 30 Anion Gap (14 - 24 MMOL/L) 11 L BUN (7 - 17 MG/DL) 15 Creatinine (0.52 - 1.04 MG/DL) 0.70 Glomerular Filtr Rate > 60 Glucose (74 - 106 MG/DL) 102 Calcium (8.4 - 10.2 MG/DL) 9.2 Laboratory Tests 10/03 0508 Hematology WBC (3.8 - 9.8 K/MM3) 4.0 RBC (3.58 - 4.97 M/MM3) 4.15 Hgb (11.2 - 14.9 G/DL) 10.2 L Hct (33.2 - 43.5 %) 33.1 L MCV (80.7 - 99.1 fL) 80 L MCH (27.0 - 34.1 pg) 24.6 L MCHC (32.2 - 35.7 %) 30.8 L RDW (12.1 - 15.2 %) 23.9 H Plt Count (129 - 368 K/MM3) 219 MPV (7.4 - 10.4 fl) 10.1 Neut % (Auto) (43 - 75 %) 41.1 L Lymph % (Auto) (14 - 44 %) 40.8 Merrick % (Auto) (4 - 13 %) 8.2 Eos % (Auto) (0 - 6 %) 9.0 H Baso % (Auto) (0 - 2 %) 0.7 Neut # (Auto) (2.0 - 7.6 K/mm3) 1.65 L Lymph # (Auto) (1.0 - 3.8 K/mm3) 1.64 Merrick # (Auto) (0.1 - 0.8 K/mm3) 0.33 Eos # (Auto) (0.0 - 0.2 K/mm3) 0.36 H Baso # (Auto) (0.0 - 0.2 K/mm3) 0.03 Immature Gran % (0.0 - 2.0 %) 0.2 Nucleated RBC % (0 - 1.0 %) 0.0 Nucleated RBCs # (Man) (0.0 - 0.1 K/mm3) 0.00 Diagnosis, Assessment Plan Free Text A P: A: 38 year old female now 1 month s/p transsphen oidal resection of pituitary adenoma P: -She was unable to collect any drainage from her nose. It is unlikely that she is experiencing a CSF leak. -She is cleared for discharg e from a neurosurgica standpoint, but will recommend she still trend the leakage that she is experiencing and call the office should this begin to leak from her nose. Will recommend that she make a follow up in the clinic in 1 week Ozzy Viera 10/25/18 1341: Diagnosis, Assessment Plan Additional comments: Agree with above Electronically Signed by Tanya Rodriguez NP on 05/10 at 1525 Electronically Signed by Ozzy Viera MD on 09/07 at 1342 RPT #:[id number] END OF REPORT 2018-10-02 23:30:00-00:00 [id number] [facility] [address] [place] [address] PATIENT NAME: LEIGH FRYE ADMIT DATE: 10/01/18 ACCOUNT NO: [id number] ROOM NO: [facility] AGE: 38 REPORT TYPE: PROGRESS NOTE SEX: F ADMITTING PHYSICIAN:Jani Mckoy MD ATTENDING PHYSICIAN:Jani Mckoy MD DATE: ADDENDUM TO GENERAL PROGRESS NOTE SUBJECTIVE: A 38-year-old female, she is postop transsphenoidal pituitary adenoma resection, admitted with drainage from t he nose anteriorly and postop nasal drip, recurrence of CSF leak was probably consideration. The patient after surgery had additional packing done to prevent the bleed which has stopped after 24 hours. ____ evaluated the patient yeste rday and plans were made to place a lumbar drain removal of the leakage issu e is persisting. The patient empirically started on vancomycin yesterday to r educe risk of REFERRAL COORDINATOR infection. She had urticarial reaction to vancomycin, which subsided with use of ____. The patient has stopped having a ny drooping in the front of the nose or on the back side. Headaches are more of sinusitis type, not deep intracranial. She is alert, ambulatory. No fever. Blood pressure is n ormal. In view of these changes advised that we will stop vancomycin tod ay and see how she is doing. Discussed again with ___ _ on further testing or intervention. Also, advised that her biopsy of the thyroid nodule ____ folli cular adenoma of the thyroid which will be elective surgery in 4 to 6 weeks f rom now. We will restart the patient on Eliquis anticoagulation for pulmonary embolism tomorrow if no surgical intervention is planned. ____ resolved. Dictated By: Jani Mckoy MD WT: PN:GISSELLE/YONATHAN/JERSON Conf#: [id number]/DID#: [id number] Authenticated by Jani Mckoy MD On 01:07:47 PM at 1308 PATIENT NAME: LEIGH FREY 2018-10-02 16:41:00-00:00 [facility] ([facility]) General Progress Note REPORT#:[id number] REPORT STATUS: Signed DATE:10/02/18 TIME: 1641 PATIENT: LEIGH FRYE UNIT #: [id number] AGE: 38 SEX: F ATTEND: Johana Mckoy MD ADM AUTHOR: Jani Mckoy MD * ALL edits or amendments must be made on the [employer] document * Subjective Comments: Vital Signs Date Time Temp Pulse Resp B/P B/P Pulse O2 O2 F low FiO2 Mean Ox Delivery Rate 10/02 1528 97.9 76 14 97/61 73.2 99 Room air 10/02 1123 97.9 77 14 97/60 72.4 96 Room air 10/02 0927 84 18 138/81 100.4 95 Room air 10/02 0724 97.9 78 14 97/67 0.0 97 Room air 10/02 0506 97.5 71 16 111/69 82.9 94 Room air 10/01 2336 98.4 81 14 121/76 91.0 98 Room air 10/01 1943 98.4 79 14 114/75 88.0 97 Room air 10/01 1536 97.5 89 16 122/79 93.6 97 Room air 10/01 1119 98.1 82 16 136/86 102.8 100 Room ai r 10/01 0716 98.2 88 16 122/81 94.7 100 Room air 10/01 0513 98.4 84 14 132/83 99.3 99 Room air 09/30 2349 97.9 66 14 137/75 95.7 99 Room air 09/30 1911 98.2 86 14 148/85 106.2 100 Room air 09/30 1846 98.1 79 14 151/99 116.0 100 Room air Laboratory Tests: 10/02 10/02 10/01 0936 0929 2257 Chemistry Sodium (137 - 145 MMOL/L) 138 Potassium (3.5 - 5.1 MMOL/L) 4.1 Chloride (98 - 107 MMOL/L) 104 Carbon Dioxide (22 - 30 MMOL/L) 26 Anion Gap (14 - 24 MMOL/L) 12 L BUN (7 - 17 MG/DL) 19 H Creatinine (0.52 - 1.04 MG/DL) 0.70 Glomerular Filtr Rate > 60 Glucose (74 - 106 MG/DL) 188 H Calcium (8.4 - 10.2 MG/DL) 9.2 Hematology WBC (3.8 - 9.8 K/MM3) 4.0 RBC (3.58 - 4.97 M/MM3) 4.09 Hgb (11.2 - 14.9 G/DL) 9.9 L Hct (33.2 - 43.5 %) 33.8 MCV (80.7 - 99.1 fL) 83 MCH (27.0 - 34.1 pg) 24.2 L MCHC (32.2 - 35.7 %) 29.3 L RDW (12.1 - 15.2 %) 23.9 H Plt Count (129 - 368 K/MM3) 192 Neut # (Auto) (2.0 - 7.6 K/mm3) 1.92 L Lymph # (Auto) (1.0 - 3.8 K/mm3) 1.31 Merrick # (Auto) (0.1 - 0.8 K/mm3) 0.34 Eos # (Auto) (0.0 - 0.2 K/mm3) 0.40 H Baso # (Auto) (0.0 - 0.2 K/mm3) 0.02 Total Counted (#CELLS) 130 Seg Neutrophils % (36.2 - 73.8 %) 56.6 Band Neutrophils % (0 - 10 %) 0.8 Lymphocytes % (Manual) (12.9 - 45.1 %) 24.6 Atypical Lymphs % (0 - 0 %) 1.6 H Monocytes % (Manual) (0 - 11 %) 8.2 Eosinophils % (Manual) (1 - 7 %) 8.2 H Nucleated RBCs # (Man) (0.0 - 0.1 K/mm3) 0.00 Platelet Estimate (ADEQUATE) ADEQUATE Plt Morphology Comment (NORMAL) NORMAL Anisocytosis (NONE) SLIGHT Microcytosis (NONE) FEW Ovalocytes (NONE) FEW Elliptocytes (NONE) FEW Toxicology Vancomycin Trough (10.0 - 20.0 UG/ML) 14.1 Recent Impressions: CAT SCAN - CT HD/BR W W/O CONT 10/01 1115 Report Impression - Status: SIGNED Entered: 10/01/2018 1149 IMPRESSION: Post surgical changes related to the pituitary m ass resection. Packing material is noted in the left sphenoid s inus. No acute intracranial abnormality. Impression By: [email or web address] Robert Lorenzo MD Current Medications Sig/Roshan Start time Last Medication Dose Route Stop Time Status Admin Montelukast Sodium 10 MG BEDTIME 10/02 2100 AC PO 11/01 2101 Furosemide 40 MG ONCE ONE 10/02 1345 DC PO 10/02 1346 Loratadine 10 MG DAILY 10/02 1345 AC PO 11/01 1346 Citalopram 40 MG DAILY 10/02 0900 AC 10/02 Hydrobromide PO 11/01 0901 0929 Vancomycin HCl 1,250 MG Q6H 10/02 0000 DC 10/02 Sodium Chloride 250 ML IV 10/11 0459 1156 Diphenhydramine HCl 25 MG Q6H PRN PRN 10/01 220 5 AC 10/02 PO 10/31 2206 0017 Atorvastatin Calcium 40 MG BEDTIME 10/01 2100 A C 10/01 PO 10/31 210 2005 Nystatin 1 XIANG TID 10/01 2100 CKD 10/02 TOPICAL 10/31 2101 1156 Fentanyl 12 MCG.PER.HR Q72H 10/01 1625 CKD 09/19 3 TRANSDERM 10/31 1626 1633 Hydrochlorothiazide 25 MG DAILY 10/01 1230 AC 0 10/02 PO 10/31 1231 0929 Hydrocortisone 10 MG BID AC 10/01 1230 AC 10/02 PO 10/31 1231 0929 Lisinopril 20 MG DAILY 10/01 1230 AC 10/02 PO 10/31 1231 0929 Metoprolol Tartrate 25 MG BID 10/01 1230 AC PO 10/31 1231 0929 Pantoprazole 40 MG DAILY 10/01 1230 AC 10/02 PO 10/31 1231 0929 Iopamidol 100 ML ONCE PRN 10/01 1115 DC 10/01 IV 10/01 2222 1142 Hydroxyzine HCl 50 MG DAILY PRN PRN 10/01 1030 AC 10/01 PO 10/31 1031 2128 Vancomycin HCl 1,250 MG Q6H 10/01 0500 DC 10/01 Sodium Chloride 250 ML IV 10/11 0459 1244 Oxycodone/ 1 TAB Q4H PRN PRN 09/30 2340 AC 09/19 4 Acetaminophen PO 10/30 2341 0930 Miscellaneous 1 EACH ASDIR 09/30 2204 DC Information IV 10/12 2203 Vital Signs Date Time Temp Pulse Resp B/P B/P Pulse O2 O2 Flow FiO2 Mean Ox Delivery Rate 10/02 1528 97.9 76 14 97/61 73.2 99 Room air 10/02 1123 97.9 77 14 97/60 72.4 96 Room air 10/02 0927 84 18 138/81 100.4 95 Room air 10/02 0724 97.9 78 14 97/67 0.0 97 Room air 10/02 0506 97.5 71 16 111/69 82.9 94 Room air 10/01 2336 98.4 81 14 121/76 91.0 98 Room air 10/01 1943 98.4 79 14 114/75 88.0 97 Room air 10/01 1536 97.5 89 16 122/79 93.6 97 Room air 10/01 1119 98.1 82 16 136/86 102.8 100 Room air 10/01 0716 98.2 88 16 122/81 94.7 100 Room air 10/01 0513 98.4 84 14 132/83 99.3 99 Room air 09/30 2349 97.9 66 14 137/75 95.7 99 Room air 09/30 1911 98.2 86 14 148/85 106.2 100 Room air 09/30 1846 98.1 79 14 151/99 116.0 100 Room air Laboratory Tests: 10/02 10/02 10/01 0907 6236 8840 Chemistry Sodium (137 - 145 MMOL/L) 138 Potassium (3.5 - 5.1 MMOL/L) 4.1 Chloride (98 - 107 MMOL/L) 104 Carbon Dioxide (22 - 30 MMOL/L) 26 Anion Gap (14 - 24 MMOL/L) 12 L BUN (7 - 17 MG/DL) 19 H Creatinine (0.52 - 1.04 MG/DL) 0.70 Glomerular Filtr Rate > 60 Glucose (74 - 106 MG/DL) 188 H Calcium (8.4 - 10.2 MG/DL) 9.2 Hematology WBC (3.8 - 9.8 K/MM3) 4.0 RBC (3.58 - 4.97 M/MM3) 4.09 Hgb (11.2 - 14.9 G/DL) 9.9 L Hct (33.2 - 43.5 %) 33.8 MCV (80.7 - 99.1 fL) 83 MCH (27.0 - 34.1 pg) 24.2 L MCHC (32.2 - 35.7 %) 29.3 L RDW (12.1 - 15.2 %) 23.9 H Plt Count (129 - 368 K/MM3) 192 Neut # (Auto) (2.0 - 7.6 K/mm3) 1.92 L Lymph # (Auto) (1.0 - 3.8 K/mm3) 1.31 Merrick # (Auto) (0.1 - 0.8 K/mm3) 0.34 Eos # (Auto) (0.0 - 0.2 K/mm3) 0.40 H Baso # (Auto) (0.0 - 0.2 K/mm3) 0.02 Total Counted (#CELLS) 130 Seg Neutrophils % (36.2 - 73.8 %) 56.6 Band Neutrophils % (0 - 10 %) 0.8 Lymphocytes % (Manual) (12.9 - 45.1 %) 24.6 Atypical Lymphs % (0 - 0 %) 1.6 H Monocytes % (Manual) (0 - 11 %) 8.2 Eosinophils % (Manual) (1 - 7 %) 8.2 H Nucleated RBCs # (Man) (0.0 - 0.1 K/mm3) 0.00 Platelet Estimate (ADEQUATE) ADEQUATE Plt Morphology Comment (NORMAL) NORMAL Anisocytosis (NONE) SLIGHT Microcytosis (NONE) FEW Ovalocytes (NONE) FEW Elliptocytes (NONE) FEW Toxicology Vancomycin Trough (10.0 - 20.0 UG/ML) 14.1 Recent Impressions: CAT SCAN - CT HD/BR W W/O CONT 10/01 1115 Report Impression - Status: SIGNED Entered: 10/01/2018 1149 IMPRESSION: Post surgical changes related to the pituitary m ass resection. Packing material is noted in the left sphenoid s inus. No acute intracranial abnormality. Impression By: [email or web address] Robert Lorenzo MD Current Medications Sig/Roshan Start time Last Medication Dose Route Stop Time Status Admin Montelukast Sodium 10 MG BEDTIME 10/02 2100 AC PO 11/01 2101 Furosemide 40 MG ONCE ONE 10/02 1345 DC PO 10/02 1346 Loratadine 10 MG DAILY 10/02 1345 AC PO 11/01 1346 Citalopram 40 MG DAILY 10/02 0900 AC 10/02 Hydrobromide PO 11/01 0901 0929 Vancomycin HCl 1,250 MG Q6H 10/02 0000 DC 10/02 Sodium Chloride 250 ML IV 10/11 0459 1156 Diphenhydramine HCl 25 MG Q6H PRN PRN 10/01 220 5 AC 10/02 PO 10/31 2206 0017 Atorvastatin Calcium 40 MG BEDTIME 10/01 2100 A C 10/01 PO 10/31 210 2005 Nystatin 1 XIANG TID 10/01 2100 CKD 10/02 TOPICAL 10/31 210 1156 Fentanyl 12 MCG.PER.HR Q72H 10/01 1625 CKD TRANSDERM 10/31 1626 1633 Hydrochlorothiazide 25 MG DAILY 10/01 1230 AC 10/02 PO 10/31 1231 0929 Hydrocortisone 10 MG BID AC 10/01 1230 AC 10/02 PO 10/31 1231 0929 Lisinopril 20 MG DAILY 10/01 1230 AC 10/02 PO 10/31 1231 0929 Metoprolol Tartrate 25 MG BID 10/01 1230 AC PO 10/31 1231 0929 Pantoprazole 40 MG DAILY 10/01 1230 AC 10/02 PO 10/31 1231 0929 Iopamidol 100 ML ONCE PRN 10/01 1115 DC 10/01 IV 10/01 2222 1142 Hydroxyzine HCl 50 MG DAILY PRN PRN 10/01 1030 AC 10/01 PO 10/31 1031 2128 Vancomycin HCl 1,250 MG Q6H 10/01 0500 DC 10/01 Sodium Chloride 250 ML IV 10/11 0459 1244 Oxycodone/ 1 TAB Q4H PRN PRN 09/30 2340 AC 09/19 4 Acetaminophen PO 10/30 2341 0930 Miscellaneous 1 EACH ASDIR 09/30 2204 DC Information IV 10/12 2203 SEE DICTATION Electronically Signed by Jani Mckoy MD o n 10/02/18 at 1642 [facility][id number] END OF REPORT 2018-10-01 22:47:00-00:00 [facility] ([facility]) General Progress Note REPORT#:[id number] REPORT STATUS: Signed DATE:10/01/18 TIME: 2246 PATIENT: LEIGH FRYE UNIT #: [id number] ROOM/BED: [address] : 80 AGE: 38 SEX: F ATTEND: Johana Mckoy MD ADM AUTHOR: Jani Mcoky MD * ALL edits or amendments must be made on the [employer] document * Subjective Comments: Vital Signs Date Time Temp Pulse Resp B/P B/P Pulse O2 O2 F low FiO2 Mean Ox Delivery Rate 10/01 1943 98.4 79 14 114/75 88.0 97 Room air 10/01 1536 97.5 89 16 122/79 93.6 97 Room air 10/01 1119 98.1 82 16 136/86 102.8 100 Room air 10/01 0716 98.2 88 16 122/81 94.7 100 Room air 10/01 0513 98.4 84 14 132/83 99.3 99 Room air 09/30 2349 97.9 66 14 137/75 95.7 99 Room air 09/30 1911 98.2 86 14 148/85 106.2 100 Room air 09/30 1846 98.1 79 14 151/99 116.0 100 Room air Laboratory Tests: 10/01 10/01 1104 1104 Chemistry Sodium (137 - 145 MMOL/L) 138 Potassium (3.5 - 5.1 MMOL/L) 4.5 Chloride (98 - 107 MMOL/L) 105 Carbon Dioxide (22 - 30 MMOL/L) 29 BUN (7 - 17 MG/DL) 12 Creatinine (0.52 - 1.04 MG/DL) 0.70 Glomerular Filtr Rate > 60 Glucose (74 - 106 MG/DL) 85 Calcium (8.4 - 10.2 MG/DL) 9.5 Coagulation INR (0.8 - 1.1) 1.0 APTT (22.0 - 33.0 SECONDS) 25.7 PT Patient/Control Mix (9.6 - 11.6 SECONDS) 10. 3 Fibrinogen (185 - 512 MG/DL) 430 D-Dimer (0 - 0.49 MG/L FEU) 1.21 H Hematology WBC (3.8 - 9.8 K/MM3) 4.6 RBC (3.58 - 4.97 M/MM3) 4.30 Hgb (11.2 - 14.9 G/DL) 10.6 L Hct (33.2 - 43.5 %) 34.2 MCV (80.7 - 99.1 fL) 80 L MCH (27.0 - 34.1 pg) 24.7 L MCHC (32.2 - 35.7 %) 31.0 L RDW (12.1 - 15.2 %) 23.9 H Plt Count (129 - 368 K/MM3) 211 219 MPV (7.4 - 10.4 fl) 9.7 Neut % (Auto) (43 - 75 %) 62.1 Lymph % (Auto) (14 - 44 %) 20.9 Merrick % (Auto) (4 - 13 %) 10.5 Eos % (Auto) (0 - 6 %) 5.7 Baso % (Auto) (0 - 2 %) 0.4 Neut # (Auto) (2.0 - 7.6 K/mm3) 2.85 Lymph # (Auto) (1.0 - 3.8 K/mm3) 0.96 L Merrick # (Auto) (0.1 - 0.8 K/mm3) 0.48 Eos # (Auto) (0.0 - 0.2 K/mm3) 0.26 H Baso # (Auto) (0.0 - 0.2 K/mm3) 0.02 Immature Gran % (0.0 - 2.0 %) 0.4 Nucleated RBC % (0 - 1.0 %) 0.0 Nucleated RBCs # (Man) (0.0 - 0.1 K/mm3) 0.00 Platelet Estimate (ADEQUATE) ADEQUATE Plt Morphology Comment (NORMAL) NORMAL Poikilocytosis (NONE) FEW Anisocytosis (NONE) SLIGHT Microcytosis (NONE) FEW Recent Impressions: CAT SCAN - CT HD/BR W W/O CONT 10/01 1115 Report Impression - Status: SIGNED Entered: 10/01/2018 1149 IMPRESSION: Post surgical changes related to the pituitary m ass resection. Packing material is noted in the left sphenoid s inus. No acute intracranial abnormality. Impression By: Gunjan Lorenzo MD Recent Impressions: CAT SCAN - CT HD/BR W W/O CONT 10/01 1115 Report Impression - Status: SIGNED Entered: 10/01/2018 1149 IMPRESSION: Post surgical changes related to the pituitary m ass resection. Packing material is noted in the left sphenoid s inus. No acute intracranial abnormality. Impression By: Gunjan Lorenzo MD Current Medications Sig/Roshan Start time Last Medication Dose Route Stop Time Status Admin Citalopram 40 MG DAILY 10/02 0900 AC Hydrobromide PO 11/01 0901 Vancomycin HCl 1,250 MG Q6H 10/02 0000 CKD Sodium Chloride 250 ML IV 10/11 0459 Diphenhydramine HCl 25 MG Q6H PRN PRN 10/01 220 5 AC PO 10/31 2206 Atorvastatin Calcium 40 MG BEDTIME 10/01 2100 A C 10/01 PO 10/31 2102004 Nystatin 1 XIANG TID 10/01 2100 CKD 10/01 TOPICAL 10/31 2101 2004 Fentanyl 12 MCG.PER.HR Q72H 10/01 1625 CKD 09/19 3 TRANSDERM 10/31 1626 1633 Fentanyl 12 MCG.PER.HR Q72HR 10/01 1609 DC TRANSDERM 10/31 1610 Fentanyl 1 MCG.PER.HR Q72HR 10/01 1230 DC TRANSDERM 10/31 1231 Hydrochlorothiazide 25 MG DAILY 10/01 1230 AC 0 10/01 PO 10/31 1231 1245 Hydrocortisone 10 MG BID AC 10/01 1230 AC 10/01 PO 10/31 1231 1608 Lisinopril 20 MG DAILY 10/01 1230 AC 10/01 PO 10/31 1231 1247 Metoprolol Tartrate 25 MG BID 10/01 1230 AC PO 10/31 1231 2005 Pantoprazole 40 MG DAILY 10/01 1230 AC 10/01 PO 10/31 1231 1247 Iopamidol 100 ML ONCE PRN 10/01 1115 DC 10/01 IV 10/01 2222 1142 Hydroxyzine HCl 50 MG DAILY PRN PRN 10/01 1030 AC 10/01 PO 10/31 1031 2128 Vancomycin HCl 1,250 MG Q6H 10/01 0500 DC 10/01 Sodium Chloride 250 ML IV 10/11 0459 1244 Oxycodone/ 1 TAB Q4H PRN PRN 09/30 2340 AC 09/19 3 Acetaminophen PO 10/30 2341 2200 Vancomycin HCl 2,500 MG ONCE ONE 09/30 2300 DC 09/30 Sodium Chloride 500 ML IV 10/01 0059 2242 Miscellaneous 1 EACH ASDIR 09/30 220 CKD Information IV 10/12 2203 SEE DICTATIO Electronically Signed by Jani Mckoy MD o n 10/01/18 at 2249 RPT #:[id number] END OF REPORT 2018-10-01 10:50:00-00:00 [facility] ([facility]) Neurosurgical Consultation REPORT#:[id number] REPORT STATUS: Signed DATE:10/01/18 TIME: 1050 PATIENT: LEIGH FRYE UNIT #: [id number] ROOM/BED: [address] : 80 AGE: 38 SEX: F ATTEND: Johana Mckoy MD ADM AUTHOR: Ozzy Viera MD * ALL edits or amendments must be made on the [employer]/computer document * History of Present Illness Requesting clinician: Jani Mckoy Reason for consult: Possible CSF leak Chief complaint: Drainage in the throat HPI: This is a 38 year old female who is one month s/p transsphenoidal resection of pituitary adenoma. She states that over the last 2 days, she has noted fluid coming along the back of her throat. When she le ans forward, she notes no leakage of fluid. She has no neck pain or photop hobia. History - Adult longitudinal Past medical history: Reports: Cancer (pituitaty ( remission) ), Hypertension, Kidney disease/stones ( kindey stones and ESRD), Thyroid disorder. Additional medical history: PE, PNA Past surgical history: Reports: Lithotripsy. Additional surgical history: Lap band, pituitary surgery Alcohol use: Denies EtOH use Drug use: Denies recreational drugs Smoking status for patients 13 years old or olde r: Never Smoker Allergies: Coded Allergies: No Known Allergies (08/25/18) Objective VS/I O: Last Documented: Result Date Time Pulse Ox 100 10/02 715 B/P 122/81 10/02 715 B/P Mean 94.7 10/02 715 O2 Delivery Room air 10/02 715 Temp 98.2 10/02 715 Pulse 88 10/02 715 Resp 16 10/02 715 24 hour I O ending at 0700: 10/01 0700 09/30 1900 Intake Total 2950.00 Output Total Balance 2950.00 Intake, IV 350.00 Intake, Oral 2600 Number Voids 3 1 Output, Urine Patient 192.72 kg Weight Weight Estimated Measurement Method Patient Weight Weight (lb): 424 Weight (oz): 14 Weight (kg): 192.720 Neuro/REFERRAL COORDINATOR: alert, oriented X 3, CN II-XII intact, EOMI, PERRL, normal reflexes, normal speech, reflexes equal bilat, no motor de ficits, no sensory deficits Diagnosis, Assessment Plan Free Text A P: A: 38 year old female now 1 months s/p transsphe noidal resection of pituitary adenoma P: I discussed with her the plan. I would like t o see if she can lean forward throughout the day to collect any fluid from her nose into a contained. It is unusual that she had no drainage up to 2 days ago. I discussed the possibility of placing a lumbar drain on Wednesday Electronically Signed by Ozzy Viera MD on 09/19 06/07 at 1054 [facility][id number] END OF REPORT 2018-09-30 19:34:00-00:00 [id number] [place] [address] PATIENT NAME: LEIGH FRYE ADMIT DATE: 10/01/18 ACCOUNT NO: [id number] ROOM NO: [id number] AGE: 38 REPORT TYPE: HISTORY AND PHYSICAL SEX: F ADMITTING PHYSICIAN:Jani Mckoy MD ATTENDING PHYSICIAN:Jani Mckoy MD ADMISSION DATE: 09/30/2018 REASON FOR ADMISSION: Nasal drainage. Question o f CSF leak. HISTORY OF PRESENT ILLNESS: The patient is a 38-year-old female recently in the hospital, admitted early last month with diagnos is of pituitary adenoma. Clinically, she had cushingo id features, morbid obesity and extensive workup was done with possibility that we may be merced ling with multiple endocrine neoplasia syndrome. 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 Present illness was from recurring headaches, initially diagnosed to be migraine. Investigation showed she had pituitary n eoplasm and a thyroid nodule. Prior to the headaches, she had episode of pulmon martha embolism, it is a known occurrence with multiple endocrine neoplasia syndrome. Alethea ent has undergone transsphenoidal macroadenoma resection and chias ma decompression with ____ resection and resection of nasal septum, craniop lasty for repair of CSF leak ____ the patient had some leakage the first day but it ____ her stay, she was free of any drainage. She started having sinus p ain a few weeks ago and more recently had drainage from nose[facility] Imaging studies were nondiagnostic. During last admission, other operations included a PICC line and thyroid nodule biopsy. 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 Other operations in clude , appendix resection and lap band surgery. She has been traci d lap-band is out of place, ____ indicated it is not bothering her, so she w ill be left alone. She has intrarenal nonobstructive kidney stone also. Our plan is to monitor and treat later. FAMILY HISTORY: Positive for renal tumor with hy perplasia. MEDICAL PROBLEMS: Include hypertension, coronary artery disease, history of migraine, hyperlipidemia, reflux esophagitis. MEDICATIONS: She is supposed to be taking Eliquis, ____ issue and lipids as she was taking Lipitor, Lexapro, Duragesic p atch, ____ Percocet, Protonix, Cortef. ALLERGIES: NONE. REVIEW OF SYSTEMS: She feels her ears to be full, has sinus pain, intermittent blurring of vision, ____ nose is obstructed and nose, throat problem or neck problems. No chest pain, cough, or shortness of breath. No nausea, vomiting, or diarrhea, ambulation problems. PATIENT NAME: LEIGH FRYE PERSONAL HISTORY: Nonsmoker. No drug or alcohol abuse. PHYSICAL EXAMINATION: GENERAL: The patient is an obese tall female, st ated weight ____ 170 kg. HEENT: ____. Pupils are equal and reactive. Ther e is tenderness ____ sinuses. Ears, tympanic membranes are slightly bulging _ ___. No otitis externa. Nostrils do not have congestion. THROAT: Not congested. NECK: Supple. JVP not raised. No bruit. Thyroid has a nodule on the right side. There is no lymphadenopathy. LUNGS: Clear. CARDIAC: Normal size, normal sounds, no murmur. BREASTS: No mass. ABDOMEN: Limited evaluation. No organ enlargemen t. No masses. EXTREMITIES: No clubbing or cyanosis, no edema. Circulation intact. LABORATORY DATA AND DIAGNOSTIC STUDIES: Recent C T scan was negative. 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 Concern is for CSF leak. We will have neurosurgery consult and ___ _ of further investigation and treatment of issues. May get surgical consultation of thyroid issue w ith ____ resected. Usual ____ follicular adenoma resection. Also, there is con cern for parathyroid adenoma. Ultrasound does not show a definite parathyroid adenoma. Nuclear medicine studies have not been done yet. History of pulmonary embolism. The patient has been off medication for some time. The usual cau se of pulmonary embolism in patients with multiple endocrine neoplasia is du e to the ____ and during the hospital stay if no surgery is necessary, we alicia l keep an eye on deep venous thrombosis prophylaxis. We will monitor blood canales gars and diabetic issue and monitor hypertension. Adjust medication. Same fo r hyperlipidemia. Monitor and adjust medication. The patient had a rec ent CT of the abdomen ____ abnormality in the adrenal area. We have not ____ urine last ection for evaluating for any possible recurrent carcinoid. If time permits, w e will get 24-hour urine collection for 5-hydroxyindoleacetic acid, 5-HIA A. If ____ may need some surgical intervention and pain management as nec essary. Dictated By: Jani Mckoy MD WT: HP:[id number]/NTS Conf#: [id number]/DID#: [id number] Authenticated by Jani Mckoy MD On 01:06:54 PM at 1307 PATIENT NAME: LEIGH FRYE 2018-09-27 22:25:00-00:00 [facility] ([facility]) EMERGENCY PROVIDER REPORT REPORT#:[id number] REPORT STATUS: Signed DATE:09/27/18 TIME: 2224 PATIENT: LEIGH FRYE UNIT #: [id number] ROOM/BED: AGE: 38 SEX: F PCP PHYS: Undefined Provider SERVICE AUTHOR: Lazarus Brink MD LOCATION: [facility] * ALL edits or amendments must be made on the [employer] document * HPI- Female General Confirmed Patient Yes Patient Type New patient Initial Greet Date/Time 09/27/[address] Mckoy Presentation Chief Complaint Flank pain R, Flank pain L Hx Obtained From Patient )( Sudden in Onset? Yes Onset Occurred Yesterday Symptom Duration Since onset Progression since Onset Unchanged Context of Onset Spontaneous Location Flank R, Flank L Radiation Does not radiate. Severity: Onset Moderate Severity: Current Moderate Associated with Reports: Fever (subjective ). Denies: Chills, Na usea, Vomiting. Associated Other CP, SOB, dizziness and BEGUM Exacerbated by Nothing Relieved by Nothing Context Related History Reports: Abdominal surgery, Cancer (pituitary), Ureterolithiasis. Immunization Status General Unknown Recent Healthcare Recent hospitalization, Previo us surgery Free Text HPI Notes Free Text HPI Notes 38 y/o F, w/pmhx of PE, HTN, thyroid disorder, ESRD-HD, kindey stones, lap band, PNA, pituitary CA (remission s/p pituitary surge ry) and lithotripsy, is presenting with multiple complaints: bilat flank pain, BEGUM, dizziness, CP, and SOB that started yesterday. Pt states her recent pituitary surgery was preformed by Dr. Viera a couple weeks ago. Pt also mentions to having a subjective fever that broke a few days ago. D enies any other assoc sxs including nausea, vomiting , diarrhea, PEREYRA, diaphoresis, syncope and chills . Portions of this section were scribed by Yamile Ledezma i, i on 09/28/18 at 0052 Review of Systems ROS Statements All systems rev neg except as marked. Focused Review of Systems Constitutional Reports: Fever (subjective ). Denies: Chills. Ears/Nose/Throat Denies: Mouth pain, Nasal congestion. GI Denies: Abdominal pain, Diarrhea, Nausea, Vomiti ng. Female Reports: Flank pain (bilat ). Denies: Dysuria. Musculoskeletal Denies: Back pain, Neck pain. Skin Denies: Diaphoresis, Swelling. Neurologic Reports: Dizziness, Headache. Denies: Syncope. Additional Review of Systems Eyes Denies: Redness bilat, Swelling bilat. Respiratory Reports: Shortness of breath. Denies: Cough, pro ductive. Cardiovascular Reports: Chest pain. Denies: Dyspnea on exertion . Allergy/Immun Denies: Itching, Rhinorrhea. Portions of this section were scribed by Yamile Ledezma i, i on 09/27/18 at 2246 Past Medical History - Adult Stated Complaint FLANK PAIN/HEADACHE/CHESTPAIN Allergies Coded Allergies: No Known Allergies (08/25/18) Home Medications Active Scripts APIXABAN (ELIQUIS) 5 MG PO BID APIXABAN (ELIQUIS) 5 MG PO BID #180 TAB Prov: 09/13/18 HYDROCORTISONE (CORTEF) 10 MG PO BID AC HYDROCORTISONE (CORTEF) 10 MG PO BID AC #60 TAB Ref 1 Prov: 09/13/18 fentaNYL (DURAGESIC) 1 MCG.PER.HR TRANSDERM Q72H fentaNYL (DURAGESIC) 1 MCG.PER.HR TRANSDERM Q72 H #10 PATCHES Prov: 09/13/18 oxyCODONE/APAP (PERCOCET 10/325 MG) 1 TAB PO Q8H PRN PRN POST OP HEADACHE/PIT MASS oxyCODONE/APAP (PERCOCET 10/325 MG) 1 TAB PO Q8 H PRN PRN POST OP HEADACHE/ PIT MASS #60 TABS Prov: 09/13/18 Reported Medications LISINOPRIL/HCTZ (ZESTORETIC 20/25 MG) 1 TAB PO D AILY ESCITALOPRAM (LEXAPRO) 40 MG PO DAILY ATORVASTATIN (LIPITOR) 40 MG PO BEDTIME hydrOXYzine HCL (ATARAX) 50 MG PO DAILY PRN PRN SLEEP METOPROLOL TARTRATE (LOPRESSOR) 25 MG PO BID PANTOPRAZOLE DR (PROTONIX) 40 MG PO DAILY Review of Nursing Notes Rev avail, and agree Past Medical History: Reports: Cancer (pituitaty ( remission) ), Hypertension, Kidney disease/stones ( kindey stones and ESRD), Thyroid disorder. Additional Medical History PE, PNA Past Surgical History: Reports: Lithotripsy. Additional Surgical History Lap band, pituitary surgery Alcohol Use Denies EtOH use Drug Use Denies recreational drugs Smoking status for patients 13 years old or olde r: Never Smoker Ambulatory Status Independent Portions of this section were scribed by Yamile Ledezma i, i on 09/27/18 at 2246 Physical Exam Vital Signs Vital Signs First Documented: Result Date Time Pulse Ox 97 09/27 2048 B/P 142/87 09/27 2048 B/P Mean 105 09/27 2048 O2 Delivery Room air 09/27 2048 Temp 36.2 09/27 2048 Pulse 85 09/27 2048 Resp 18 09/27 2048 Last Documented: Result Date Time Pulse Ox 97 09/27 2048 B/P 142/87 09/27 2048 B/P Mean 105 09/27 2048 O2 Delivery Room air 09/27 2048 Temp 36.2 09/27 2048 Pulse 85 09/27 2048 Resp 18 09/27 2048 Review of Vital Signs Reviewed Focused PE General/Const General/Const Awake, Alert, No acute distress, Cooperative, Not toxic appearing Resp/Chest Respiratory/Chest Breath sounds NL, Breath soun ds = bilat, No rales, No rhonchi, No wheezing Cardiovascular Cardiovascular Heart rate NL, Regular rhythm, H eart sounds NL, No gallop, No murmurs, No rubs Abdomen/GI Abdomen/GI Soft, Non-tender, No guarding, No re bound, No distention MS Back Back Inspection NL, Full range of motion Skin Skin Warm, Dry, Intact Genitourinary General Exam deferred Additional PE MS Head Head Atraumatic, Normocephalic Eyes Eyes Atraumatic, EOMI Ears/Nose/Throat Ears/Nose/Throat Atraumatic, Airway patent Neurologic Neurologic Oriented X3, Speech NL, CN II - XII intact (grossly ) Portions of this section were scribed by Yamile Ledezma i, i on 09/28/18 at 0052 Interpretation Diagnostics Lab Results Interpretation Considerations Independ review imaging, Reviewed prior records Results Laboratory Tests 09/27/182304: [Embedded Image Not Available] Laboratory Tests: 09/27 2304 Chemistry Sodium (137 - 145 MMOL/L) 140 Potassium (3.5 - 5.1 MMOL/L) 4.2 Chloride (98 - 107 MMOL/L) 105 Carbon Dioxide (22 - 30 MMOL/L) 27 Anion Gap (14 - 24 MMOL/L) 12 L BUN (7 - 17 MG/DL) 12 Creatinine (0.52 - 1.04 MG/DL) 0.80 Glomerular Filtr Rate > 60 Glucose (74 - 106 MG/DL) 91 Calcium (8.4 - 10.2 MG/DL) 9.7 Total Bilirubin (0.2 - 1.3 MG/DL) 0.4 Direct Bilirubin (0.0 - 0.3 MG/DL) 0.0 AST (14 - 36 UNITS/L) 25 ALT (9 - 52 UNITS/L) 29 Total Alk Phosphatase (38 - 126 UNITS/L) 139 H Total Protein (6.3 - 8.2 G/DL) 8.6 H Albumin (3.5 - 5.0 G/DL) 4.4 Lipase (23 - 300 UNITS/L) 134 Serum , Qual (NEGATIVE) NEGATIVE L Hematology WBC (3.8 - 9.8 K/MM3) 6.4 RBC (3.58 - 4.97 M/MM3) 4.58 Hgb (11.2 - 14.9 G/DL) 11.3 Hct (33.2 - 43.5 %) 37.2 MCV (80.7 - 99.1 fL) 81 MCH (27.0 - 34.1 pg) 24.7 L MCHC (32.2 - 35.7 %) 30.4 L RDW (12.1 - 15.2 %) 24.4 H Plt Count (129 - 368 K/MM3) 252 Neut # (Auto) (2.0 - 7.6 K/mm3) 2.87 Lymph # (Auto) (1.0 - 3.8 K/mm3) 2.82 Merrick # (Auto) (0.1 - 0.8 K/mm3) 0.43 Eos # (Auto) (0.0 - 0.2 K/mm3) 0.28 H Baso # (Auto) (0.0 - 0.2 K/mm3) 0.03 Nucleated RBCs # (Man) (0.0 - 0.1 K/mm3) 0.00 Platelet Estimate (ADEQUATE) ADEQUATE Plt Morphology Comment (NORMAL) NORMAL Anisocytosis (NONE) MODERATE Microcytosis (NONE) FEW Urines Urine Color (YELLOW) YELLOW Urine Appearance (CLEAR) SLIGHT CLOUDY Urine pH (5.0 - 9.0) 6.0 Ur Specific Beatty (1.003 - 1.030) 1.015 Urine Protein (NEGATIVE MG/DL) NEGATIVE Urine Glucose (UA) (NORMAL MG/DL) NORMAL Urine Ketones (NEGATIVE MG/DL) NEGATIVE Urine Blood (NEGATIVE Demond/mm3) NEGATIVE Urine Nitrite (NEGATIVE) NEGATIVE Urine Bilirubin (NEGATIVE MG/DL) NEGATIVE Urine Urobilinogen (NORMAL MG/DL) NORMAL Ur Leukocyte Esterase (NEGATIVE /mm3) NEGATIVE Urine Culture Screen (Culture Chk Criteria) NEG ATIVE, NO CULTURE Recent Impressions: CAT SCAN - CT HD/BR W W/O CONT 09/27 2349 Report Impression - Status: SIGNED Entered: 09/28/201839 Impression: No evidence of an acute intracranial abnormality . Similar appearance of postsurgical changes relat ed to transsphenoidal pituitary tumor resection. Persistent paranasal sinusitis, moderate at the sphenoid sinuses. 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 Impression By: Annette Luo MD CAT SCAN - CT MAXIFAC W/CONTRAST 09/27 2349 Report Impression - Status: SIGNED Entered: 09/28/201839 Impression: No evidence of an acute intracranial abnormality . Similar appearance of postsurgical changes relat ed to transsphenoidal pituitary tumor resection. Persistent paranasal sinusitis, moderate at the sphenoid sinuses. 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 Impression By: Annette Luo MD CAT SCAN - CT ABD PELVIS W/O CONT 09/27 2349 Report Impression - Status: SIGNED Entered: 09/28/2018 0025 IMPRESSION: 1. No acute abnormalities. This exam was performed according to our [facility] ental dose-optimization program, which includes automa kenroy exposure control, adjustment of the mA and/or kV according to alethea ent size and/or use of iterative reconstruction technique Impression By: Anastasia - Luis M Gee MD Lab Imaging Statement Laboratory radiographic studies reviewed and con sidered in the medical decision-making. Point of Care Testing Pulse Oximetry Pulse Ox % 97 On: Room air Interpretation Interpreted by me, Pulse oximetr y normal Time 2048 Portions of this section were scribed by Yamile Ledezma i, i on 09/28/18 at 0052 Re-Evaluation MDM Free Text MDM Notes Free Text MDM Notes 38 y/o F with multiple medical problems presents for persistent headache s/p transphenoidal pituitary ann marie or removal, as well as L. flank pain. Vitals stable, nofever. Neurological exam wnl, no purul ent (or otherwise) drainage from nose. DDX includes postoperative c omplications including infection, CSF leak, bleeding /hematoma, uti/pyelo, kidney stones, diverticuli tis, or other pathology. Re-Evaluation/Progress Re-Evaluation/Progress Text/Dict Note Patient reports feeling marginally better. CT he ad/face negative. No e/o postoperative pathology, jus t chronic paranasal sinusitis. CT abd/pelvis shows no acute findings as well. M ost likely c/w migraines + sinusitis, and msk flank pain. Will discharge rubina espino on pain regime n. ED Course Medication(s) Ordered Medication(s) Ordered: Central Nervous System Agents Sig/Roshan Start time Last Medication Dose Route Stop Time Status Admin Hydrocodone Bitart/ 1 TAB X1ED STA 09/288 D C 09/28 Acetaminophen PO 09/28 001 0023 Ketorolac 15 MG X1ED STA 09/288 DC 09/28 Tromethamine IV 09/28 18 0024 Acetaminophen 1,000 MG X1ED STA 09/27 2234 DC 0 09/27 PO 09/28 2235 232 Morphine Sulfate 4 MG X1ED STA 09/27 2234 DC IV 09/28 2235 232 Electrolytic, Caloric, And Yvette Sig/Roshan Start time Last Medication Dose Route Stop Time Status Admin Sodium Chloride 1,000 ML X1ED ONE 09/27 2234 DC 09/27 IV 09/27 2335 2326 Gastrointestinal Drugs Sig/Roshan Start time Last Medication Dose Route Stop Time Status Admin Ondansetron HCl 4 MG X1ED PRN PRN 09/27 2234 DC 09/27 IV 09/286 2326 Portions of this section were scribed by Yamile Ledezma i, i on 09/28/18 at 0052 Patient Discharge Departure Vital Signs/Condition Vital Signs First Documented: Result Date Time Pulse Ox 97 09/27 2048 B/P 142/87 09/27 2048 B/P Mean 105 09/27 2048 O2 Delivery Room air 09/27 2048 Temp 36.2 09/27 2048 Pulse 85 09/27 2048 Resp 18 09/27 2048 Last Documented: Result Date Time Pulse Ox 97 09/27 2048 B/P 142/87 09/27 2048 B/P Mean 105 09/27 2048 O2 Delivery Room air 09/27 2048 Temp 36.2 09/27 2048 Pulse 85 09/27 2048 Resp 18 09/27 2048 All vital signs available at the time of this en try have been reviewed. Condition Stable Clinical Impression Clinical Impression Primary Impression: Headache, migraine Secondary Impressions: Flank pain, Sinusitis Disposition Decision Discharge )( Discharged to Home Yes )( Time 0050 )( Date 09/28/18 Discharge/Care Plan Counseled Regarding Diagnosi s, Lab results, Imaging studies, Prescriptions, Need for follow-up, When to return to ED Prescriptions motrin tramadol fioricet Prescriptions Reviewed Risks, Benefits, Alternat thomas treatment Discharge Note I have spoken with the patie nt and/or caregivers. I have explained the patient's condition, diagnoses and cali atment plan based on the information available to me at this time. I have answered the patient's and/ or caregiver's questions and addressed any concerns. The patient and/or careg rosanna have as good an understanding of the patient 's diagnosis, condition and treatment plan as can be expected at this point. The vital signs have bee n stable. The patient's condition is stable and appr opriate for discharge from the emergency department. The patient will pursue further outpatient evalu ation with the primary care physician or other designated or consulting phys ician as outlined in the discharge instructions. The patient and/or caregivers are agreeable to this plan of care and follow-up instructions have been exp lained in detail. The patient and/or caregivers have received these instructio ns in written format and have expressed an understanding of the discharge inst ructions. The patient and/or caregivers are aware that any significant change in condition or worsening of symptoms should prompt an immediate return to [facility] or the closest emergency department or a call to 911. Quality Measures BP F/U for HTN Referred for BP f/u < 4wk, F/u wi PCP/other doc Supervising Physician Note Scribe Statement Yamile Ledezma ii, 09/27/18 2 251, scribing for and in the presence of [Dr. Lazarus Brink MD]. Signed By: Yamile Ledezma ii, 09/27/18 6321 Provider Scribed Statement I personally performed the s ervices described in this documentation and reviewed the documentation that was dictated to the scrib e(s) in my presence, and it accurately records my words and actions. Lazarus Brink MD, 09/27/18 Portions of this section were scribed by Yamile Ledezma i, i on 09/28/18 at 0052 Electronically Signed by Lazarus Brink MD on 09/19 at 1137 RPT #:[id number] END OF REPORT 2018-09-13 13:32:00-00:00 [facility] ([facility]) General Progress Note REPORT#:[id number] REPORT STATUS: Signed DATE:09/13/18 TIME: 1332 PATIENT: LEIGH FRYE UNIT #: [id number] [facility] AGE: 38 SEX: F ATTEND: Johana Mckoy MD ADM AUTHOR: Jani Mckoy MD * ALL edits or amendments must be made on the [employer] document * Subjective Comments: Vital Signs Date Time Temp Pulse Resp B/P B/P Pulse O2 O2 F low FiO2 Mean Ox Delivery Rate 09/13 1110 97.3 78 15 134/61 85.4 97 Room air 09/13 0835 72 116/58 77.2 98 09/13 0709 98.1 66 14 102/69 80.0 96 Room air 09/13 0318 98.1 64 14 102/54 70.3 96 Room air 09/12 2338 97.7 75 16 112/60 77.3 98 Room air 09/12 1938 98.2 74 16 132/92 105.2 100 Room air 09/12 1558 98.2 60 15 106/66 79.6 95 Room air 09/12 0816 98.2 78 14 166/113 130.6 93 09/12 0422 97.9 73 14 135/81 98.7 96 Room air 09/11 1934 98.2 79 16 125/83 96.9 96 Room air 09/11 1647 97.7 67 14 140/82 101.0 96 Room air Laboratory Tests 09/12 09/12 09/11 09/11 09/11 0500 0500 0550 0550 0550 Chemistry Sodium (137 - 145 MMOL/L) 142 Potassium (3.5 - 5.1 MMOL/L) 4.4 Chloride (98 - 107 MMOL/L) 107 Carbon Dioxide (22 - 30 MMOL/L) 28 Anion Gap (14 - 24 MMOL/L) 11 L BUN (7 - 17 MG/DL) 15 Creatinine (0.52 - 1.04 MG/DL) 0.70 Glomerular Filtr Rate > 60 Glucose (74 - 106 MG/DL) 120 H Serum Osmolality (275 - 295 mOsm/kg) 297 H Calcium (8.4 - 10.2 MG/DL) 9.5 Magnesium (1.6 - 2.3 MG/DL) 2.0 Total Bilirubin (0.2 - 1.3 MG/DL) 0.1 L AST (14 - 36 UNITS/L) 55 H ALT (9 - 52 UNITS/L) 51 Total Alk Phosphatase (38 - 126 UNITS/L) 131 H Total Protein (6.3 - 8.2 G/DL) 7.1 Albumin (3.5 - 5.0 G/DL) 3.3 L TSH (0.465 - 4.68 MIU/L) 1.530 Free T4 (0.78 - 2.19 NG/DL) 1.3 PTH Intact (7.5 - 53.5 pg/mL) 100.6 H Cortisol AM Sample (4.46 - 22.7 ug/dL) 2.45 L 09/11 0550 Chemistry ACTH (7.2 - 63.3 pg/mL) 10.1 Laboratory Tests 09/11 0550 Hematology WBC (3.8 - 9.8 K/MM3) 8.9 RBC (3.58 - 4.97 M/MM3) 3.73 Hgb (11.2 - 14.9 G/DL) 8.6 L Hct (33.2 - 43.5 %) 29.6 L MCV (80.7 - 99.1 fL) 79 L MCH (27.0 - 34.1 pg) 23.1 L MCHC (32.2 - 35.7 %) 29.1 L RDW (12.1 - 15.2 %) 24.6 H Plt Count (129 - 368 K/MM3) 321 MPV (7.4 - 10.4 fl) 10.0 Neut % (Auto) (43 - 75 %) 52.2 Lymph % (Auto) (14 - 44 %) 33.6 Merrick % (Auto) (4 - 13 %) 7.9 Eos % (Auto) (0 - 6 %) 4.9 Baso % (Auto) (0 - 2 %) 0.7 Neut # (Auto) (2.0 - 7.6 K/mm3) 4.64 Lymph # (Auto) (1.0 - 3.8 K/mm3) 2.99 Merrick # (Auto) (0.1 - 0.8 K/mm3) 0.70 Eos # (Auto) (0.0 - 0.2 K/mm3) 0.44 H Baso # (Auto) (0.0 - 0.2 K/mm3) 0.06 Immature Gran % (0.0 - 2.0 %) 0.7 Nucleated RBC % (0 - 1.0 %) 0.0 Nucleated RBCs # (Man) (0.0 - 0.1 K/mm3) 0.00 Platelet Estimate (ADEQUATE) ADEQ Plt Morphology Comment (NORMAL) NORMAL Laboratory Tests 09/12 1105 Urines Urine Osmolality (300 - 1200 MOS/KG) 311 09/13 0700 09/12 2300 09/12 1500 Intake Total 1060.00 1400 Output Total 1600 2100 Balance -540.00 -700 Intake, IV 100.00 Intake, Oral 960 1400 Number Voids 4 Output, Urine 1600 2100 Current Medications Sig/Roshan Start time Last Medication Dose Route Stop Time Status Admin Miscellaneous 1 EACH ASDIR 09/12 2210 AC Information MISC 10/12 2211 Apixaban 5 MG BID 09/12 2200 AC 09/13 PO 10/12 2201 0824 Labetalol HCl 5 MG Q4H PRN PRN 09/10 1720 AC IV 10/10 1721 Albuterol/Ipratropium 3 ML RTQ6H PRN 09/10 1033 DC 09/11 INH 10/10 1033 0405 Alteplase, 2 MG ASDIR PRN 09/10 0730 AC 09/10 Recombinant IV 10/10 0731 1333 Fentanyl 25 MCG.PER.HR Q72H 09/09 2245 CKD 08/21 4 TRANSDERM 10/09 224 2250 Lisinopril 5 MG Q12HR 09/09 2100 AC 09/13 PO 10/09 210 1119 Oxycodone HCl 10 MG Q6H PRN PRN 09/09 1650 AC 0 09/13 PO 10/09 1651 0823 Furosemide 20 MG DAILY 09/09 1100 AC 09/13 PO 10/09 1101 0825 Metronidazole/Sodium 100 ML Q8HR 09/08 1300 DC 09/13 Chloride IV 09/15 1259 0439 Hydrocortisone 10 MG BID AC 09/06 1630 AC 08/21 5 PO 10/06 1631 0824 Metoprolol Tartrate 50 MG BID 09/05 2100 AC PO 09/25 0901 1119 Ondansetron HCl 4 MG Q6H PRN PRN 09/05 1625 AC 09/05 SL 10/05 1626 1639 Ferrous Sulfate 300 MG BID 09/03 1300 AC 09/13 PO 10/03 1301 0824 Polyethylene Glycol 17 GM DAILY 09/01 0925 AC 0 09/07 PO 10/01 0926 0759 Docusate Sodium 100 MG BID 08/30 2100 AC 09/13 PO 09/29 210 0825 Phenol 1 SPRAY Q4H PRN PRN 08/30 1820 AC MM 09/29 1821 [place] Oil/Swedish 1 XIANG Q12HR 08/29 2100 CKD 09/13 Balsam/Trypsin TOPICAL 09/28 210 0830 Clotrimazole 1 XIANG BID 08/29 2100 CKD 09/13 TOPICAL 09/28 210 0829 Pantoprazole 40 MG Q12HR 08/29 2100 AC 09/13 PO 09/28 2101 0825 Vitamin B Complex/ 1 TAB BID 08/28 2100 CKD Vitamin C PO 09/27 2100 08 Citalopram 40 MG DAILY 08/26 899 AC 09/13 Hydrobromide PO 09/25 0901 0825 SEE DICTATION Electronically Signed by Jani Mckoy MD o n 09/13/18 at 1333 [facility][id number] END OF REPORT 2018-09-12 18:49:00-00:00 [id number] [place] [address] PATIENT NAME: LEIGH FRYE ADMIT DATE: 08/25/18 ACCOUNT NO: [id number] ROOM NO: Z.[facility] AGE: 38 REPORT TYPE: PROGRESS NOTE SEX: F ADMITTING PHYSICIAN:Jani Mckoy MD ATTENDING PHYSICIAN:Jani Mckoy MD DATE: ADDENDUM TO GENERAL PROGRESS NOTE SUBJECTIVE: The patient is a 38-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 She had pituitary resection complication treated with CSF leak, wh ich has closed. She has a history of pulmonary embolism, has been on Eliquis, which has been on hold for last 2 days, had the nasal packing removed witho ut complication. She is alert and oriented, and has a neck nodule abou t 3 cm, which increased in size in the last 4 weeks. We had a needle biopsy done yester day. Post-procedure, we will resume her anticoagulation after 10 to 12 hours and watch overnight for any bleeding issues. Previous central line in for ac cess. She has morbid obesity. She does not have any good veins and had any complication, will need to have a line available. She is ambulating well a nd pulmonary infiltrates condition has improved. Right lower lobe pneumonia is clearing . Plans are to discontinue IV antibiotic therapy and IV li ne tomorrow morning, assess x-ray and decide if she is to continue her oral antibiotic thera py for some time after discharge. Plan is hormonal replacement ther apy. She has been off DDAVP without any problem and osmolality in the serum is normal. Blood sugars are satisfactory. Hypertension control is satisfactory. She is hypoadrenal and getting replacement with the cortisone twice a day regimen. Plans are for fol lowup surgical evaluation of thyroid nodule once biopsy r eport is available. It may be parathyroid resection is that she needs. Pituitary adenoma will be fol lowed by Dr. Viera, hormone issues with me and issues concerning to lap band are done by Dr. Phillips. His opinion is present. Lap band can be left alone. She is surely asymptomatic. Dictated By: Jani Mckoy MD WT: PN:GISSELLE/YONATHAN/JERSON Conf#: [id number]/DID#: [id number] Authenticated by Jani Mckoy MD On 06:10:43 AM at 0611 PATIENT NAME: LEIGH FRYE 2018-09-12 14:14:00-00:00 [facility] ([facility]) Neurosurgical Progress Note REPORT#:[id number] REPORT STATUS: Signed DATE:09/12/18 TIME: 1414 PATIENT: LEIGH FRYE UNIT #: [id number] AGE: 38 SEX: F ATTEND: Johana Mckoy MD ADM AUTHOR: Tanya Rodriguez NP * ALL edits or amendments must be made on the [employer]/computer document * Subjective Comments: Nasal packing removed at bedside without issue. Objective General VS/I O: Vital Signs Date Temp Pulse Resp B/P B/P Mean Pulse Ox FiO2 09/11-09/12 97.7-98.2 67-79 14-16 125-166/81-113 96.9-130.6 93-96 24 hour I O ending at 0700: 09/12 0700 09/11 1900 Intake Total 1810.00 2600 Output Total 2800 4800 Balance -990.00 -2200 Intake, IV 200.00 Intake, Oral 1610 2600 Number 0 Bowel Movements Number Voids 9 Output, Urine 2800 4800 Patient Weight Weight (lb): 412 Weight (oz): 9 Weight (kg): 186.88 Medications: Active Meds + DC'd Last 24 Hrs Apixaban 5 MG BID PO (PEND) Labetalol HCl 5 MG Q4H PRN PRN IV Albuterol/Ipratropium 3 ML RTQ6H PRN INH Alteplase, Recombinant 2 MG ASDIR PRN IV Fentanyl 25 MCG.PER.HR Q72H TRANSDERM (CKD) Lisinopril 5 MG Q12HR PO Oxycodone HCl 10 MG Q6H PRN PRN PO Furosemide 20 MG DAILY PO Metronidazole/Sodium Chloride 100 ML Q8HR IV Hydrocortisone 10 MG BID AC PO Metoprolol Tartrate 50 MG BID PO Ondansetron HCl 4 MG Q6H PRN PRN SL Ferrous Sulfate 300 MG BID PO Polyethylene Glycol 17 GM DAILY PO Docusate Sodium 100 MG BID PO Phenol 1 SPRAY Q4H PRN PRN MM [place] Oil/Swedish Balsam/Trypsin 1 XIANG Q12HR T OPICAL (CKD) Clotrimazole 1 XIANG BID TOPICAL (CKD) Pantoprazole 40 MG Q12HR PO Vitamin B Complex/Vitamin C 1 TAB BID PO (CKD) Citalopram Hydrobromide 40 MG DAILY PO Physical Exam General appearance: alert, awake, oriented Cardiovascular: regular rate rhythm Respiratory: no distress, symmetric expansion Abdomen: non-tender, normal bowel sounds, soft, no distention Neuro/REFERRAL COORDINATOR: alert, oriented X 3, CN II-XII intact, EOMI, PERRL, normal reflexes, normal speech, reflexes equal bilat, no motor de ficits, no sensory deficits Results Findings/Data: Laboratory Tests 09/12 09/12 0500 0500 Chemistry Serum Osmolality (275 - 295 mOsm/kg) 297 H PTH Intact (7.5 - 53.5 pg/mL) 100.6 H Laboratory Tests 09/12 1105 Urines Urine Osmolality (300 - 1200 MOS/KG) 311 Diagnosis, Assessment Plan Free Text A P: A: 38 year old female now POD#13 from transsphen oidal resection of pituitary adenoma P: -Nasal packing removed at bedside -Off DDVAP for a few days now, electrolytes and urine output stable -Plan is for discharge tomorrow morning -2 week follow up as an outpatient Electronically Signed by Tanya Rodriguez NP on 08/21 11/07 at 1521 RPT #:[id number] END OF REPORT 2018-09-12 14:14:00-00:00 [facility] ([facility]) Neurosurgical Progress Note REPORT#:[id number] REPORT STATUS: Signed DATE:09/12/18 TIME: 141 PATIENT: LEIGH FRYE UNIT #: [id number] ROOM/BED: [address] : 80 AGE: 38 SEX: F ATTEND: Johana Mckoy MD ADM AUTHOR: Tanya Rodriguez NP * ALL edits or amendments must be made on the [employer]/computer document * Tanya Rodriguez NP 09/12/18 1414: Subjective Comments: Nasal packing removed at bedside without issue. Objective General VS/I O: Vital Signs Date Temp Pulse Resp B/P B/P Mean Pulse Ox FiO2 09/11-09/12 97.7-98.2 67-79 14-16 125-166/81-113 96.9-130.6 93-96 24 hour I O ending at 0700: 09/12 0700 09/11 1900 Intake Total 1810.00 2600 Output Total 2800 4800 Balance -990.00 -2200 Intake, IV 200.00 Intake, Oral 1610 2600 Number 0 Bowel Movements Number Voids 9 Output, Urine 2800 4800 Patient Weight Weight (lb): 412 Weight (oz): 9 Weight (kg): 186.88 Medications: Active Meds + DC'd Last 24 Hrs Apixaban 5 MG BID PO (PEND) Labetalol HCl 5 MG Q4H PRN PRN IV Albuterol/Ipratropium 3 ML RTQ6H PRN INH Alteplase, Recombinant 2 MG ASDIR PRN IV Fentanyl 25 MCG.PER.HR Q72H TRANSDERM (CKD) Lisinopril 5 MG Q12HR PO Oxycodone HCl 10 MG Q6H PRN PRN PO Furosemide 20 MG DAILY PO Metronidazole/Sodium Chloride 100 ML Q8HR IV Hydrocortisone 10 MG BID AC PO Metoprolol Tartrate 50 MG BID PO Ondansetron HCl 4 MG Q6H PRN PRN SL Ferrous Sulfate 300 MG BID PO Polyethylene Glycol 17 GM DAILY PO Docusate Sodium 100 MG BID PO Phenol 1 SPRAY Q4H PRN PRN MM [place] Oil/Swedish Balsam/Trypsin 1 XIANG Q12HR T OPICAL (CKD) Clotrimazole 1 XIANG BID TOPICAL (CKD) Pantoprazole 40 MG Q12HR PO Vitamin B Complex/Vitamin C 1 TAB BID PO (CKD) Citalopram Hydrobromide 40 MG DAILY PO Physical Exam General appearance: alert, awake, oriented Cardiovascular: regular rate rhythm Respiratory: no distress, symmetric expansion Abdomen: non-tender, normal bowel sounds, soft, no distention Neuro/REFERRAL COORDINATOR: alert, oriented X 3, CN II-XII intact, EOMI, PERRL, normal reflexes, normal speech, reflexes equal bilat, no motor de ficits, no sensory deficits Results Findings/Data: Laboratory Tests 09/12 09/12 0500 0500 Chemistry Serum Osmolality (275 - 295 mOsm/kg) 297 H PTH Intact (7.5 - 53.5 pg/mL) 100.6 H Laboratory Tests 09/12 1105 Urines Urine Osmolality (300 - 1200 MOS/KG) 311 Diagnosis, Assessment Plan Free Text A P: A: 38 year old female now POD#13 from transsphen oidal resection of pituitary adenoma P: -Nasal packing removed at bedside -Off DDVAP for a few days now, electrolytes and urine output stable -Plan is for discharge tomorrow morning -2 week follow up as an outpatient Ozzy Viera 09/19/18 1506: Diagnosis, Assessment Plan Additional comments: Agree with above Electronically Signed by Tanya Rodriguez NP on 08/21 11/07 at 1521 RPT #:[id number] END OF REPORT 2018-09-12 14:14:00-00:00 [facility] ([facility] Neurosurgical Progress Note REPORT#:[id number] REPORT STATUS: Signed DATE:09/12/18 TIME: 4 PATIENT: LEIGH FRYE UNIT #: [id number] ROOM/BED: [address] : 80 AGE: 38 SEX: F ATTEND: Johana Mckoy MD ADM AUTHOR: Tanya Rodriguez, VISITOR SERVICES TECHNICIAN * ALL edits or amendments must be made on the [employer]/computer document * Tanya Rodriguez VISITOR SERVICES TECHNICIAN 09/12/18 1414: Subjective Comments: Nasal packing removed at bedside without issue. Objective General VS/I O: Vital Signs Date Temp Pulse Resp B/P B/P Mean Pulse Ox FiO2 09/11-09/12 97.7-98.2 67-79 14-16 125-166/81-113 96.9-130.6 93-96 24 hour I O ending at 0700: 09/12 0700 09/11 1900 Intake Total 1810.00 2600 Output Total 2800 4800 Balance -990.00 -2200 Intake, IV 200.00 Intake, Oral 1610 2600 Number 0 Bowel Movements Number Voids 9 Output, Urine 2800 4800 Patient Weight Weight (lb): 412 Weight (oz): 9 Weight (kg): 186.88 Medications: Active Meds + DC'd Last 24 Hrs Apixaban 5 MG BID PO (PEND) Labetalol HCl 5 MG Q4H PRN PRN IV Albuterol/Ipratropium 3 ML RTQ6H PRN INH Alteplase, Recombinant 2 MG ASDIR PRN IV Fentanyl 25 MCG.PER.HR Q72H TRANSDERM (CKD) Lisinopril 5 MG Q12HR PO Oxycodone HCl 10 MG Q6H PRN PRN PO Furosemide 20 MG DAILY PO Metronidazole/Sodium Chloride 100 ML Q8HR IV Hydrocortisone 10 MG BID AC PO Metoprolol Tartrate 50 MG BID PO Ondansetron HCl 4 MG Q6H PRN PRN SL Ferrous Sulfate 300 MG BID PO Polyethylene Glycol 17 GM DAILY PO Docusate Sodium 100 MG BID PO Phenol 1 SPRAY Q4H PRN PRN MM [place] Oil/Swedish Balsam/Trypsin 1 XIANG Q12HR T OPICAL (CKD) Clotrimazole 1 XIANG BID TOPICAL (CKD) Pantoprazole 40 MG Q12HR PO Vitamin B Complex/Vitamin C 1 TAB BID PO (CKD) Citalopram Hydrobromide 40 MG DAILY PO Physical Exam General appearance: alert, awake, oriented Cardiovascular: regular rate rhythm Respiratory: no distress, symmetric expansion Abdomen: non-tender, normal bowel sounds, soft, no distention Neuro/REFERRAL COORDINATOR: alert, oriented X 3, CN II-XII intact, EOMI, PERRL, normal reflexes, normal speech, reflexes equal bilat, no motor de ficits, no sensory deficits Results Findings/Data: Laboratory Tests 09/12 09/12 0500 0500 Chemistry Serum Osmolality (275 - 295 mOsm/kg) 297 H PTH Intact (7.5 - 53.5 pg/mL) 100.6 H Laboratory Tests 09/12 1105 Urines Urine Osmolality (300 - 1200 MOS/KG) 311 Diagnosis, Assessment Plan Free Text A P: A: 38 year old female now POD#13 from transsphen oidal resection of pituitary adenoma P: -Nasal packing removed at bedside -Off DDVAP for a few days now, electrolytes and urine output stable -Plan is for discharge tomorrow morning -2 week follow up as an outpatient MaximilianoOzzy 09/19/18 1506: Diagnosis, Assessment Plan Additional comments: Agree with above Electronically Signed by Tanya Rodriguez NP on 08/21 11/07 at 1521 RPT #:[id number] END OF REPORT 2018-09-12 14:14:00-00:00 [facility] ([facility] Neurosurgical Progress Note REPORT#:[id number] REPORT STATUS: Signed DATE:09/12/18 TIME: 1413 PATIENT: LEIGH FRYE UNIT #: [id number] ROOM/BED: [address] : 80 AGE: 38 SEX: F ATTEND: Johana Mckoy MD ADM AUTHOR: Tanya Rodriguez NP * ALL edits or amendments must be made on the el [employer]/computer document * Tanya Rodriguez NP 09/12/18 1414: Subjective Comments: Nasal packing removed at bedside without issue. Objective General VS/I O: Vital Signs Date Temp Pulse Resp B/P B/P Mean Pulse Ox FiO2 09/11-09/12 97.7-98.2 67-79 14-16 125-166/81-113 96.9-130.6 93-96 24 hour I O ending at 0700: 09/12 0700 09/11 1900 Intake Total 1810.00 2600 Output Total 2800 4800 Balance -990.00 -2200 Intake, IV 200.00 Intake, Oral 1610 2600 Number 0 Bowel Movements Number Voids 9 Output, Urine 2800 4800 Patient Weight Weight (lb): 412 Weight (oz): 9 Weight (kg): 186.88 Medications: Active Meds + DC'd Last 24 Hrs Apixaban 5 MG BID PO (PEND) Labetalol HCl 5 MG Q4H PRN PRN IV Albuterol/Ipratropium 3 ML RTQ6H PRN INH Alteplase, Recombinant 2 MG ASDIR PRN IV Fentanyl 25 MCG.PER.HR Q72H TRANSDERM (CKD) Lisinopril 5 MG Q12HR PO Oxycodone HCl 10 MG Q6H PRN PRN PO Furosemide 20 MG DAILY PO Metronidazole/Sodium Chloride 100 ML Q8HR IV Hydrocortisone 10 MG BID AC PO Metoprolol Tartrate 50 MG BID PO Ondansetron HCl 4 MG Q6H PRN PRN SL Ferrous Sulfate 300 MG BID PO Polyethylene Glycol 17 GM DAILY PO Docusate Sodium 100 MG BID PO Phenol 1 SPRAY Q4H PRN PRN MM [place] Oil/Swedish Balsam/Trypsin 1 XIANG Q12HR TOPICAL (CKD) Clotrimazole 1 XIANG BID TOPICAL (CKD) Pantoprazole 40 MG Q12HR PO Vitamin B Complex/Vitamin C 1 TAB BID PO (CKD) Citalopram Hydrobromide 40 MG DAILY PO Physical Exam General appearance: alert, awake, oriented Cardiovascular: regular rate rhythm Respiratory: no distress, symmetric expansion Abdomen: non-tender, normal bowel sounds, soft, no distention Neuro/REFERRAL COORDINATOR: alert, oriented X 3, CN II-XII intact, EOMI, PERRL, normal reflexes, normal speech, reflexes equal bilat, no motor de ficits, no sensory deficits Results Findings/Data: Laboratory Tests 09/12 09/12 0500 0500 Chemistry Serum Osmolality (275 - 295 mOsm/kg) 297 H PTH Intact (7.5 - 53.5 pg/mL) 100.6 H Laboratory Tests 09/12 1105 Urines Urine Osmolality (300 - 1200 MOS/KG) 311 Diagnosis, Assessment Plan Free Text A P: A: 38 year old female now POD#13 from transsphen oidal resection of pituitary adenoma P: -Nasal packing removed at bedside -Off DDVAP for a few days now, electrolytes and urine output stable -Plan is for discharge tomorrow morning -2 week follow up as an outpatient Ozzy Viera 09/19/18 1506: Diagnosis, Assessment Plan Additional comments: Agree with above Electronically Signed by Tanya Rodriguez NP on 08/21 11/07 at 1521 Electronically Signed by Ozzy Viera MD on 04/09 at 1506 RPT #:[id number] END OF REPORT 2018-09-12 08:46:00-00:00 [facility] General Progress Note REPORT#:[id number] REPORT STATUS: Signed DATE:09/12/18 TIME: 08 PATIENT: LEIGH FRYE UNIT #: [id number] ROOM/BED: [address] : 80 AGE: 38 SEX: F ATTEND: Tho Mckoy MD ADM AUTHOR: Jani Mckoy MD * ALL edits or amendments must be made on the [employer] document * Subjective Comments: Vital Signs Date Time Temp Pulse Resp B/P B/P Pulse O2 O2 F low FiO2 Mean Ox Delivery Rate 09/12 0816 98.2 78 14 166/113 130.6 93 09/12 0422 97.9 73 14 135/81 98.7 96 Room air 09/11 1934 98.2 79 16 125/83 96.9 96 Room air 09/11 1647 97.7 67 14 140/82 101.0 96 Room air 09/11 0741 98.2 79 14 150/76 101.0 99 09/11 0340 97.9 69 16 148/94 112.1 97 Room air 09/11 0018 70 16 120/68 85.4 96 Room air 09/10 2349 98.2 71 14 161/95 116.6 94 Room air 09/10 1929 98.8 67 14 143/80 100.9 94 Room air 09/10 1800 70 157/82 107.1 98 09/10 1616 67 16 157/111 126.1 98 Room air 09/10 1601 98.1 70 14 166/109 127.8 95 Room air 09/10 1217 98.1 78 14 131/82 98.2 95 Room air Laboratory Tests: 09/12 0500 Chemistry PTH Intact (7.5 - 53.5 pg/mL) 100.6 H Microbiology: 09/09 1457 SPUTUM: Sputum Culture - RES 09/09 145 SPUTUM: Gram Stain - RES Current Medications Sig/Roshan Start time Last Medication Dose Route Stop Time Status Admin Labetalol HCl 5 MG Q4H PRN PRN 09/10 1720 AC IV 10/10 1721 Albuterol/Ipratropium 3 ML RTQ6H PRN 09/10 103 3 AC 09/11 INH 10/10 1033 0405 Alteplase, 2 MG ASDIR PRN 09/10 0730 AC 09/10 Recombinant IV 10/10 0731 1333 Fentanyl 25 MCG.PER.HR Q72H 09/09 224 CKD 08/21 1 TRANSDERM 10/09 2246 2301 Lisinopril 5 MG Q12HR 09/09 2100 AC 09/11 PO 10/09 Oxycodone HCl 10 MG Q6H PRN PRN 09/09 1650 AC 0 09/12 PO 10/09 1651 0554 Furosemide 20 MG DAILY 09/09 1100 AC 09/11 PO 10/09 1101 1001 Metronidazole/Sodium 100 ML Q8HR 09/08 1300 AC 09/12 Chloride IV 09/15 1259 0427 Hydrocortisone 10 MG BID AC 09/06 1630 AC 09/11 PO 10/06 1631 1513 Metoprolol Tartrate 50 MG BID 09/05 2100 AC PO 09/25 0901 2008 Sucralfate 1 GM BID 09/05 2100 DC 09/11 PO 10/05 2101 1001 Ondansetron HCl 4 MG Q6H PRN PRN 09/05 1625 AC 09/05 SL 10/05 1626 1639 Ferrous Sulfate 300 MG BID 09/03 1300 AC 09/11 PO 10/03 1301 2007 Polyethylene Glycol 17 GM DAILY 09/01 0925 AC 0 09/07 PO 10/01 0926 0759 Docusate Sodium 100 MG BID 08/30 2100 AC 09/11 PO 09/29 2102007 Phenol 1 SPRAY Q4H PRN PRN 08/30 1820 AC MM 09/29 1821 [place] Oil/Swedish 1 XIANG Q12HR 08/29 2100 CKD 09/11 Balsam/Trypsin TOPICAL 09/28 Clotrimazole 1 XIANG BID 08/29 2100 CKD 09/11 TOPICAL 09/28 Pantoprazole 40 MG Q12HR 08/29 2100 AC 09/11 PO 09/28 Vitamin B Complex/ 1 TAB BID 08/28 2099 CKD Vitamin C PO 09/27 Citalopram 40 MG DAILY 08/26 09 AC 09/11 Hydrobromide PO 09/25 0901 1001 SEE DCTATION Electronically Signed by Jani Mckoy MD o n 09/12/18 at 0847 RPT #:[id number] END OF REPORT 2018-09-11 13:51:00-00:00 [id number] [place] [address] PATIENT NAME: LEIGH FRYE ADMIT DATE: 08/25/18 ACCOUNT NO: [id number] ROOM NO: Z504 AGE: 38 REPORT TYPE: PROGRESS NOTE SEX: F ADMITTING PHYSICIAN:Jani Mckoy MD ATTENDING PHYSICIAN:Jani Mckoy MD DATE: ADDENDUM TO GENERAL PROGRESS NOTE SUBJECTIVE: This is a 38-year-old female with en docrine neoplasia and history of appendix resection carcinoid, had pituitary m icroadenoma resected. Postop, she is to follow back to ___ _ tomorrow and Eliquis has been ____. She was found to have a thyroid nodule. Repeat ultraso und shows size has increased and it is now easily palpable in spite of her morb id obesity. The nodule size is now 3.3 x 1.9 x 2.1. Significant decrease within the wed time. Nodule is hypoechoic and solid. I advised ____ nodule and rosa isela n for a biopsy. She is off Eliquis for PE and I believe tomorrow will be earliest to ge t the biopsy. The patient's right lung pneumonia has continued ____ clear. H as no cough or shortness of breath, no wheezing. Peripheral edema continues to decrease. There is no drainage from the nose or bleeding. Blood sugars are satisfactory. Nutrition is stable with albumin 3.3. Cortisol level in th e morning is slightly low at 2.45. ACTH level is normal. Overall, the lab lachelle a is stable. Electrolytes satisfactory. We will continue to monitor her an d hopefully she can be discharged if no immediate therapy is planned. P ain control is satisfactory with combination of fentanyl and oxycodone. Medi cation, lab data, vital signs in the printed portion of general progress note have been reviewed and addressed. She was taken off DDAVP few days ago to see how she does without it. So far, electrolytes are normal and urine outpu t is unchanged. It is likely that she may not need it in the long run . Hydrocortisone substitution probably will be necessary for the time being. Dictated By: Jani Mckoy MD WT: PN:GISSELLE/YONATHAN/JERSON Conf#: [id number]/DID#: [id number] Authenticated by Jani Mckoy MD On 06:09:30 AM at 0609 PATIENT NAME: LEIGH FRYE 2018-09-11 09:31:00-00:00 [facility] ([facility]) General Progress Note REPORT#:[id number] REPORT STATUS: Signed DATE:09/11/18 TIME: 930 PATIENT: LEIGH FRYE UNIT #: [id number] ROOM/BED: [address] : 80 AGE: 38 SEX: F ATTEND: Johana Mckoy MD ADM AUTHOR: Jani Mckoy MD * ALL edits or amendments must be made on the el [employer]/computer document * Subjective Comments: Vital Signs Date Time Temp Pulse Resp B/P B/P Pulse O2 O2 F low FiO2 Mean Ox Delivery Rate 09/11 0741 98.2 79 14 150/76 101.0 99 09/11 0340 97.9 69 16 148/94 112.1 97 Room air 09/11 0018 70 16 120/68 85.4 96 Room air 09/10 2349 98.2 71 14 161/95 116.6 94 Room air 09/10 1929 98.8 67 14 143/80 100.9 94 Room air 09/10 1800 70 157/82 107.1 98 09/10 1616 67 16 157/111 126.1 98 Room air 09/10 1601 98.1 70 14 166/109 127.8 95 Room air 09/10 1217 98.1 78 14 131/82 98.2 95 Room air 09/10 0722 97.9 73 14 148/97 113.8 95 Room air 09/10 0449 98.2 71 14 151/73 98.7 95 Room air 09/09 2342 97.7 67 14 148/81 103.3 97 Room air 09/10 2011 97 Room air 21 09/09 1958 98.1 65 14 142/92 109.0 97 09/09 1645 97.9 80 18 142/97 111.9 98 Room air 09/09 1130 98.1 67 18 148/81 103.4 97 Room air Laboratory Tests: 09/11 09/11 09/11 0550 0550 0550 Chemistry Sodium (137 - 145 MMOL/L) 142 Potassium (3.5 - 5.1 MMOL/L) 4.4 Chloride (98 - 107 MMOL/L) 107 Carbon Dioxide (22 - 30 MMOL/L) 28 Anion Gap (14 - 24 MMOL/L) 11 L BUN (7 - 17 MG/DL) 15 Creatinine (0.52 - 1.04 MG/DL) 0.70 Glomerular Filtr Rate > 60 Glucose (74 - 106 MG/DL) 120 H Calcium (8.4 - 10.2 MG/DL) 9.5 Magnesium (1.6 - 2.3 MG/DL) 2.0 Total Bilirubin (0.2 - 1.3 MG/DL) 0.1 L AST (14 - 36 UNITS/L) 55 H ALT (9 - 52 UNITS/L) 51 Total Alk Phosphatase (38 - 126 UNITS/L) 131 H Total Protein (6.3 - 8.2 G/DL) 7.1 Albumin (3.5 - 5.0 G/DL) 3.3 L TSH (0.465 - 4.68 MIU/L) 1.530 Free T4 (0.78 - 2.19 NG/DL) 1.3 Cortisol AM Sample (4.46 - 22.7 ug/dL) 2.45 L Hematology WBC (3.8 - 9.8 K/MM3) 8.9 RBC (3.58 - 4.97 M/MM3) 3.73 Hgb (11.2 - 14.9 G/DL) 8.6 L Hct (33.2 - 43.5 %) 29.6 L MCV (80.7 - 99.1 fL) 79 L MCH (27.0 - 34.1 pg) 23.1 L MCHC (32.2 - 35.7 %) 29.1 L RDW (12.1 - 15.2 %) 24.6 H Plt Count (129 - 368 K/MM3) 321 MPV (7.4 - 10.4 fl) 10.0 Neut % (Auto) (43 - 75 %) 52.2 Lymph % (Auto) (14 - 44 %) 33.6 [place] % (Auto) (4 - 13 %) 7.9 Eos % (Auto) (0 - 6 %) 4.9 Baso % (Auto) (0 - 2 %) 0.7 Neut # (Auto) (2.0 - 7.6 K/mm3) 4.64 Lymph # (Auto) (1.0 - 3.8 K/mm3) 2.99 [place] # (Auto) (0.1 - 0.8 K/mm3) 0.70 Eos # (Auto) (0.0 - 0.2 K/mm3) 0.44 H Baso # (Auto) (0.0 - 0.2 K/mm3) 0.06 Immature Gran % (0.0 - 2.0 %) 0.7 Nucleated RBC % (0 - 1.0 %) 0.0 Nucleated RBCs # (Man) (0.0 - 0.1 K/mm3) 0.00 Recent Impressions: RADIOLOGY - FLUORO GUID CTRL ACC DEV 09/08 1300 Report Impression - Status: SIGNED Entered: 09/08/2018 6334 IMPRESSION: Successful non-tunneled PICC placeme nt via the right basilic vein. PLAN: The catheter is ready for immediate use. W hen treatment is completed, this catheter can be removed at the [facility] according to standard hospital protocol. timber harvester operator: Jacqueline Fleming PA-C. Impression By: Dolores Pepe MD SPECIAL PROCEDURES - US GUIDANCE VASC ACCESS 1300 Report Impression - Status: SIGNED Entered: 09/08/2018 1447 IMPRESSION: Successful non-tunneled PICC placeme nt via the right basilic vein. PLAN: The catheter is ready for immediate use. W hen treatment is completed, this catheter can be removed at the [facility] according to standard hospital protocol. timber harvester operator: Jacqueline Fleming PA-C. Impression By: Dolores Pepe MD RADIOLOGY - XR CHEST 2 V 09/09 0910 Report Impression - Status: SIGNED Entered: 09/09/2018 0938 IMPRESSION: Diffuse interstitial and airspace opacities thro ughout both lungs unchanged from the prior examination. Impression By: Xochitl Obrien MD ULTRASOUND - US HEAD AND NECK 09/10 0755 Report Impression - Status: SIGNED Entered: 09/10/2018 0904 IMPRESSION: Solid nodule in the right thyroid lo be is increased in size compared to August 28, 2018, measuring up to 3 .3 cm, previously 2.7 cm. Impression By: [email or web address] Renetta Briceño MD 09/11 09/11 09/11 0550 0550 0550 Chemistry Sodium (137 - 145 MMOL/L) 142 Potassium (3.5 - 5.1 MMOL/L) 4.4 Chloride (98 - 107 MMOL/L) 107 Carbon Dioxide (22 - 30 MMOL/L) 28 Anion Gap (14 - 24 MMOL/L) 11 L BUN (7 - 17 MG/DL) 15 Creatinine (0.52 - 1.04 MG/DL) 0.70 Glomerular Filtr Rate > 60 Glucose (74 - 106 MG/DL) 120 H Calcium (8.4 - 10.2 MG/DL) 9.5 Magnesium (1.6 - 2.3 MG/DL) 2.0 Total Bilirubin (0.2 - 1.3 MG/DL) 0.1 L AST (14 - 36 UNITS/L) 55 H ALT (9 - 52 UNITS/L) 51 Total Alk Phosphatase (38 - 126 UNITS/L) 131 H Total Protein (6.3 - 8.2 G/DL) 7.1 Albumin (3.5 - 5.0 G/DL) 3.3 L TSH (0.465 - 4.68 MIU/L) 1.530 Free T4 (0.78 - 2.19 NG/DL) 1.3 Cortisol AM Sample (4.46 - 22.7 ug/dL) 2.45 L 09/11 0550 Hematology WBC (3.8 - 9.8 K/MM3) 8.9 RBC (3.58 - 4.97 M/MM3) 3.73 Hgb (11.2 - 14.9 G/DL) 8.6 L Hct (33.2 - 43.5 %) 29.6 L MCV (80.7 - 99.1 fL) 79 L MCH (27.0 - 34.1 pg) 23.1 L MCHC (32.2 - 35.7 %) 29.1 L RDW (12.1 - 15.2 %) 24.6 H Plt Count (129 - 368 K/MM3) 321 MPV (7.4 - 10.4 fl) 10.0 Neut % (Auto) (43 - 75 %) 52.2 Lymph % (Auto) (14 - 44 %) 33.6 [place] % (Auto) (4 - 13 %) 7.9 Eos % (Auto) (0 - 6 %) 4.9 Baso % (Auto) (0 - 2 %) 0.7 Neut # (Auto) (2.0 - 7.6 K/mm3) 4.64 Lymph # (Auto) (1.0 - 3.8 K/mm3) 2.99 [place] # (Auto) (0.1 - 0.8 K/mm3) 0.70 Eos # (Auto) (0.0 - 0.2 K/mm3) 0.44 H Baso # (Auto) (0.0 - 0.2 K/mm3) 0.06 Immature Gran % (0.0 - 2.0 %) 0.7 Nucleated RBC % (0 - 1.0 %) 0.0 Nucleated RBCs # (Man) (0.0 - 0.1 K/mm3) 0.00 Current Medications Sig/Roshan Start time Last Medication Dose Route Stop Time Status Admin Labetalol HCl 5 MG Q4H PRN PRN 09/10 1720 AC IV 10/10 1721 Albuterol/Ipratropium 3 ML RTQ6H PRN 09/10 1033 AC 09/11 INH 10/10 1033 0405 Alteplase, 2 MG ASDIR PRN 09/10 0730 AC 09/10 Recombinant IV 10/10 0731 1333 Fentanyl 25 MCG.PER.HR Q72H 09/09 2245 CKD / 1 TRANSDERM 10/09 2246 2301 Lisinopril 5 MG Q12HR 09/09 2100 AC 09/10 PO 10/09 210 1704 Oxycodone HCl 10 MG Q6H PRN PRN 09/09 1650 AC 0 09/11 PO 10/09 165 0559 Furosemide 20 MG DAILY 09/09 1100 AC 09/10 PO 10/09 1101 0923 Metronidazole/Sodium 100 ML Q8HR 09/08 1300 AC 09/11 Chloride IV 09/15 1259 0521 Hydrocortisone 10 MG BID AC 09/06 1630 AC 09/10 PO 10/06 1631 1610 Apixaban 5 MG BID 09/06 1300 DC 09/10 PO 09/10 210 210 Metoprolol Tartrate 50 MG BID 09/05 2100 AC PO 09/25 0901 1704 Sucralfate 1 GM BID 09/05 2100 AC 09/10 PO 10/05 210 205 Ondansetron HCl 4 MG Q6H PRN PRN 09/05 1625 AC 09/05 SL 10/05 1626 1639 Miscellaneous 1 EACH ASDIR 09/05 1455 DC Information IV 09/12 1454 Albuterol/Ipratropium 3 ML RTQ6H 09/04 0900 DC 09/10 INH 10/04 0901 0707 Cefepime HCl 1,000 MG Q6HR 09/04 0600 DC 09/10 Sodium Chloride 10 ML IV 09/11 0532 2358 Ferrous Sulfate 300 MG BID 09/03 1300 AC 09/10 PO 10/03 1301 2059 Polyethylene Glycol 17 GM DAILY 09/01 0925 AC 0 09/07 PO 10/01 0926 0759 Docusate Sodium 100 MG BID 08/30 2100 AC 09/10 PO 09/29 2101 2057 Phenol 1 SPRAY Q4H PRN PRN 08/30 1820 AC MM 09/29 1821 [place] Oil/Swedish 1 XIANG Q12HR 08/29 2099 CKD 09/10 Balsam/Trypsin TOPICAL 09/28 Clotrimazole 1 XIANG BID 08/29 2099 CKD 09/10 TOPICAL 09/28 Pantoprazole 40 MG Q12HR 08/29 2100 AC 09/10 PO 09/28 Vitamin B Complex/ 1 TAB BID 08/28 2099 CKD Vitamin C PO 09/27 Citalopram 40 MG DAILY 08/26 899 AC 09/10 Hydrobromide PO 09/25 900 09 SEE DICTATION /PLAN FNB THYROID NODULE Electronically Signed by Jani Mckoy MD o n 09/11/18 at 0933 RPT #:[id number] END OF REPORT 2018-09-10 15:18:00-00:00 [id number] [place] [address] PATIENT NAME: LEIGH FRYE ADMIT DATE: 08/25/18 ACCOUNT NO: [id number] ROOM NO: [facility] AGE: 38 REPORT TYPE: PROGRESS NOTE SEX: F ADMITTING PHYSICIAN:Jani Mckoy MD ATTENDING PHYSICIAN:Jani Mckoy MD DATE: SUBJECTIVE: The patient is a 38-year-old female ____ pituitary is resected about 10 days ago from ____ approach. Po stop initially she had CSF leak, which subsided. She is ambulatory, has nasal packing i n place. No CSF leak. She has history of DVT, pulmonary em bolism, and has been on Eliquis, it was put on hold for the next 2 days to remove the pack to reduce the risk of bleeding. Blood pressure is satisfactory. Generalized edema is i n control. Pain control was revised to reduce the dose of Tylenol and combin ation of Duragesic patch with oxycodone is satisfactory. The patient had recen t aspiration pneumonia is clearing with bilateral crackles. Decreased coug h or expectoration. The patient is being weaned from hydrocortisone and DDAVP and we will see if she can do the least amount of medic ations for renal dysfunction ____ subtotal resection some of ____. We are monitoring her electrolytes and urine output closely. Dictated By: Jani Mckoy MD WT: PN:GISSELLE/JEANNETTEU/EJRSON Conf#: [id number]/DID#: [id number] Authenticated by Jani Mckoy MD On 06:08:58 AM at 0609 PATIENT NAME: LEIGH FRYE 2018-09-10 11:28:00-00:00 [facility] ([facility]) General Progress Note REPORT#:[id number] REPORT STATUS: Signed DATE:09/10/18 TIME: 1128 PATIENT: LEIGH FRYE UNIT #: [id number] ROOM/BED: [address] : 80 AGE: 38 SEX: F ATTEND: Johana Mckoy MD ADM AUTHOR: Jani Mckoy MD * ALL edits or amendments must be made on the [employer] document * Subjective Comments: Vital Signs Date Time Temp Pulse Resp B/P B/P Pulse O2 O2 F low FiO2 Mean Ox Delivery Rate 09/10 721 97.9 73 14 148/97 113.8 95 Room air 09/10 0449 98.2 71 14 151/73 98.7 95 Room air 09/092 97.7 67 14 148/81 103.3 97 Room air 09/10 2011 97 Room air 09/09 98.1 65 14 142/92 109.0 97 09/09 1645 97.9 80 18 142/97 111.9 98 Room air 09/09 1130 98.1 67 18 148/81 103.4 97 Room air 09/09 0735 98.1 69 18 156/71 99.4 96 Room air 09/09 0426 97.9 69 14 133/83 99.5 94 Room air 09/08 2333 97.7 66 14 140/65 90.2 95 Room air 09/08 1938 98.1 66 14 156/82 106.6 97 Room air 09/08 1519 98.1 68 14 137/86 102.9 99 Room air Laboratory Tests 09/09 09/08 09/08 0530 1430 0440 Chemistry Sodium (137 - 145 MMOL/L) 142 Potassium (3.5 - 5.1 MMOL/L) 4.1 Chloride (98 - 107 MMOL/L) 105 Carbon Dioxide (22 - 30 MMOL/L) 32 H BUN (7 - 17 MG/DL) 9 10 Creatinine (0.52 - 1.04 MG/DL) 0.70 0.80 Glomerular Filtr Rate > 60 > 60 Glucose (74 - 106 MG/DL) 114 H Calcium (8.4 - 10.2 MG/DL) 9.2 B-Natriuretic Peptide (0 - 100 PG/ML) 222.0 H Microbiology: Date/Time Procedure - Status Source Growth 09/09 1456 Sputum Culture - COLB SPUTUM 09/09 1456 Gram Stain - COLB SPUTUM Recent Impressions: ULTRASOUND - US HEAD AND NECK 09/10 0755 Report Impression - Status: SIGNED Entered: 09/10/2018 0904 IMPRESSION: Solid nodule in the right thyroid lo be is increased in size compared to August 28, 2018, measuring up to 3 .3 cm, previously 2.7 cm. Impression By: [email or web address] - Renetta Mar MD Microbiology: 09/09 1456 SPUTUM: Sputum Culture - COLB 09/09 1456 SPUTUM: Gram Stain - COLB Recent Impressions: RADIOLOGY - XR CHEST 2 V 09/07 1715 Report Impression - Status: SIGNED Entered: 09/07/2018 1745 Impression: 1. The focal infiltrate of the right mid to lowe r lung has slightly improved since the prior exam. 2. There is dense interstitial opacification thr oughout the mid and lower lungs, worsened from prior study. Differen tial considerations include pulmonary edema or an atypical infectiou s process. Impression By: [email or web address] - Ko Valles M.D. RADIOLOGY - FLUORO GUID CTRL ACC DEV 09/08 1300 Report Impression - Status: SIGNED Entered: 09/08/2018 1447 IMPRESSION: Successful non-tunneled PICC placeme nt via the right basilic vein. PLAN: The catheter is ready for immediate use. W hen treatment is completed, this catheter can be removed at the [facility] according to standard hospital protocol. timber harvester operator: Jacqueline Fleming PA-C. Impression By: Dolores Pepe MD SPECIAL PROCEDURES - US GUIDANCE VASC ACCESS 1300 Report Impression - Status: SIGNED Entered: 09/08/2018 1447 IMPRESSION: Successful non-tunneled PICC placeme nt via the right basilic vein. PLAN: The catheter is ready for immediate use. W hen treatment is completed, this catheter can be removed at the [facility] according to standard hospital protocol. timber harvester operator: Jacqueline Fleming PA-C. Impression By: Dolores Pepe MD RADIOLOGY - XR CHEST 2 V 09/09 0910 Report Impression - Status: SIGNED Entered: 09/09/2018 0938 IMPRESSION: Diffuse interstitial and airspace opacities thro ughout both lungs unchanged from the prior examination. Impression By: Xochitl Obrien MD ULTRASOUND - US HEAD AND NECK 09/10 0755 Report Impression - Status: SIGNED Entered: 09/10/2018 0904 IMPRESSION: Solid nodule in the right thyroid lo be is increased in size compared to August 28, 2018, measuring up to 3 .3 cm, previously 2.7 cm. Impression By: [email or web address] Renetta Briceño MD Current Medications Sig/Roshan Start time Last Medication Dose Route Stop Time Status Admin Albuterol/Ipratropium 3 ML RTQ6H PRN 09/10 1033 AC INH 10/10 1033 Alteplase, 2 MG ASDIR PRN 09/10 0730 AC Recombinant IV 10/10 0731 Fentanyl 25 MCG.PER.HR Q72H 09/09 2245 CKD 08/21 1 TRANSDERM 10/09 2246 2301 Lisinopril 5 MG Q12HR 09/09 2100 AC 09/10 PO 10/09 2101 0923 Oxycodone HCl 10 MG Q6H PRN PRN 09/09 1650 AC 0 09/10 PO 10/09 1651 0616 Furosemide 20 MG DAILY 09/09 1100 AC 09/10 PO 10/09 1101 0923 Metronidazole/Sodium 100 ML Q8HR 09/08 1300 AC 09/10 Chloride IV 09/15 1259 0550 Hydrocortisone 10 MG BID AC 09/06 1630 AC 09/10 PO 10/06 1631 0617 Apixaban 5 MG BID 09/06 1300 AC 09/10 PO 09/10 2101 0921 Hydrocodone Bitart/ 1 TAB Q4H PRN PRN 09/06 102 5 DC 09/09 Acetaminophen PO 10/06 1026 1353 Metoprolol Tartrate 50 MG BID 09/05 2100 AC PO 09/25 0901 0924 Sucralfate 1 GM BID 09/05 2100 AC 09/10 PO 10/05 2101 0922 Ondansetron HCl 4 MG Q6H PRN PRN 09/05 1625 AC 09/05 SL 10/05 1626 1639 Miscellaneous 1 EACH ASDIR 09/05 1455 CKD Information IV 09/12 1454 Albuterol/Ipratropium 3 ML RTQ6H 09/04 0900 DC 09/10 INH 10/04 0901 0707 Cefepime HCl 1,000 MG Q6HR 09/04 0600 AC 09/10 Sodium Chloride 10 ML IV 09/11 0532 0607 Ferrous Sulfate 300 MG BID 09/03 1300 AC 09/10 PO 10/03 1301 0922 Lisinopril 5 MG DAILY 09/03 0900 DC 09/09 PO 10/02 0901 0856 Polyethylene Glycol 17 GM DAILY 09/01 0925 AC 0 09/07 PO 10/01 0926 0759 Docusate Sodium 100 MG BID 08/30 2100 AC 09/10 PO 09/29 2101 0923 Phenol 1 SPRAY Q4H PRN PRN 08/30 1820 AC MM 09/29 1821 Acetaminophen 650 MG Q4H PRN PRN 08/30 1525 DC 09/09 PO 09/29 1446 1354 [place] Oil/Swedish 1 XIANG Q12HR 08/29 2100 CKD 09/10 Balsam/Trypsin TOPICAL 09/28 210 0921 Clotrimazole 1 XIANG BID 08/29 2100 CKD 09/09 TOPICAL 09/28 2100 210 Pantoprazole 40 MG Q12HR 08/29 2100 AC 09/10 PO 09/28 210 0922 Vitamin B Complex/ 1 TAB BID 08/28 2100 CKD Vitamin C PO 09/27 2101 0924 Citalopram 40 MG DAILY 08/26 0900 AC 06/22 Hydrobromide PO 09/25 0901 0923 SEEE DICTATION Electronically Signed by Jani Mckoy MD o n 09/10/18 at 1129 RPT #:[id number] END OF REPORT 2018-09-09 17:28:00-00:00 [facility] ([facility]) General Surgery Consultation REPORT#:[id number] REPORT STATUS: Signed DATE:09/09/18 TIME: 1728 PATIENT: LEIGH FRYE UNIT #: [id number] ROOM/BED: [address] : 80 AGE: 38 SEX: F ATTEND: Johana Mckoy MD ADM AUTHOR: Cabrera Phillips MD * ALL edits or amendments must be made on the [employer]computer document * History of Present Illness HPI Chief complaint: REFLUX AND DYSPHAGIA HPI: LAP BAND PLACED IN 2010 HAS NOT HAD A BAND ADJUSTMENT IN SEVERAL YEARS COMPLAINTS OF DYSPHAGIA AND REFLUX History - Adult longitudinal Past medical history: Reports: Thyroid disorder. Additional surgical history: Lap band Alcohol use: Denies EtOH use Drug use: Denies recreational drugs Smoking status for patients 13 years old or olde r: Former Smoker Allergies: Coded Allergies: No Known Allergies (08/25/18) Ambulatory status: Independent Objective Physical Exam VS/I O: Last Documented: Result Date Time Pulse Ox 98 09/09 1645 B/P 142/97 09/09 1645 B/P Mean 111.9 09/09 1645 O2 Delivery Room air 09/09 1645 Temp 97.9 09/09 1645 Pulse 80 09/09 1645 Resp 18 09/09 1645 FiO2 21 09/08 0859 O2 Flow Rate 0.015664 09/05 1938 24 hour I O ending at 0700: 09/09 0700 09/08 1900 Intake Total 1680.00 1920.00 Output Total 1050 8675 Balance 630.00 -6755.00 Intake, IV 720.00 620.00 Intake, Oral 960 1300 Number 0 Bowel Movements Number Voids 2 Output, Urine 1050 8675 Patient 186.88 kg Weight Patient Weight Weight (lb): 412 Weight (oz): 9 Weight (kg): 186.88 General appearance: alert, awake, oriented, no a cute distress, pleasant, conversational, mental status normal, no respira tory distress Abdomen: non-tender, no distention, no g uarding, no rebound, SUBCUTANEOUS PORT IN THE EPIGASTRIUM NO PORT SITE INFECTION Diagnosis, Assessment Plan Free Text DxA P Notes Free Text DxA P Notes: PT WITH SYMPTOMATIC TIGHT LAP BAND BAND ACCESSED AND COMPLETELY UNFILLED PT TO FOLLOW UP AN OUT PATIENT FOR BAND MANAG EMENT RECENT PITUITARY SURGERY at 1733 RPT #:[id number] END OF REPORT 2018-09-09 14:04:00-00:00 [facility] ([facility]) General Progress Note REPORT#:[id number] REPORT STATUS: Signed DATE:09/09/18 TIME: 1404 PATIENT: LEIGH FRYE UNIT #: [id number] ROOM/BED: [address] : 80 AGE: 38 SEX: F ATTEND: Johana Mckoy MD ADM AUTHOR: Jani Mckoy MD * ALL edits or amendments must be made on the [employer] document * Subjective Comments: Vital Signs Date Time Temp Pulse Resp B/P B/P Pulse O2 O2 Flow FiO2 Mean Ox Delivery Rate 09/09 1130 98.1 67 18 148/81 103.4 97 Room air 09/09 0735 98.1 69 18 156/71 99.4 96 Room air 09/09 0426 97.9 69 14 133/83 99.5 94 Room air 09/08 2333 97.7 66 14 140/65 90.2 95 Room air 09/08 1938 98.1 66 14 156/82 106.6 97 Room air 09/08 1519 98.1 68 14 137/86 102.9 99 Room air 09/08 1128 97.7 60 14 154/89 110.7 96 Room air 09/08 0859 95 Room air 21 09/08 0718 97.7 68 20 159/94 115.8 97 09/08 0342 97.7 67 16 134/92 105.6 94 Room air 09/08 0103 97.7 62 16 144/84 104.3 95 Room air 09/07 1951 97.7 82 16 139/75 96.5 96 Room air 09/07 1910 96 Room air 21 09/07 1535 97.9 69 15 161/82 108.6 100 Nasal cannula Laboratory Tests: 09/09 09/08 0530 1430 Chemistry Sodium (137 - 145 MMOL/L) 142 Potassium (3.5 - 5.1 MMOL/L) 4.1 Chloride (98 - 107 MMOL/L) 105 Carbon Dioxide (22 - 30 MMOL/L) 32 H BUN (7 - 17 MG/DL) 9 10 Creatinine (0.52 - 1.04 MG/DL) 0.70 0.80 Glomerular Filtr Rate > 60 > 60 Glucose (74 - 106 MG/DL) 114 H Calcium (8.4 - 10.2 MG/DL) 9.2 Recent Impressions: RADIOLOGY - XR CHEST 2 V 09/09 0910 Report Impression - Status: SIGNED Entered: 09/09/2018 0938 IMPRESSION: Diffuse interstitial and airspace opacities thro ughout both lungs unchanged from the prior examination. Impression By: 16 - Ida Obrien MD Recent Impressions: RADIOLOGY - XR CHEST 2 V 09/07 1715 Report Impression - Status: SIGNED Entered: 09/07/2018 1745 Impression: 1. The focal infiltrate of the right mid to lowe r lung has slightly improved since the prior exam. 2. There is dense interstitial opacification thr oughout the mid and lower lungs, worsened from prior study. Differen tial considerations include pulmonary edema or an atypical infectiou s process. Impression By: [email or web address] - Ko Valles M.D. RADIOLOGY - FLUORO GUID CTRL ACC DEV 09/08 1300 Report Impression - Status: SIGNED Entered: 09/08/2018 1447 IMPRESSION: Successful non-tunneled PICC placeme nt via the right basilic vein. PLAN: The catheter is ready for immediate use. W hen treatment is completed, this catheter can be removed at the [facility] according to standard hospital protocol. timber harvester operator: Jacqueline Fleming PA-C. Impression By: [email or web address] - Alireza Pepe MD SPECIAL PROCEDURES - US GUIDANCE VASC ACCESS 1300 Report Impression - Status: SIGNED Entered: 09/08/2018 1447 IMPRESSION: Successful non-tunneled PICC placeme nt via the right basilic vein. PLAN: The catheter is ready for immediate use. W hen treatment is completed, this catheter can be removed at the [facility] according to standard hospital protocol. timber harvester operator: Jacqueline Fleming PA-C. Impression By: [email or web address] - Alireza Pepe MD RADIOLOGY - XR CHEST 2 V 09/09 0910 Report Impression - Status: SIGNED Entered: 09/09/2018 0938 IMPRESSION: Diffuse interstitial and airspace opacities thro ughout both lungs unchanged from the prior examination. Impression By: 16 - Ida Obrien MD Current Medications Sig/Roshan Start time Last Medication Dose Route Stop Time Status Admin Furosemide 20 MG DAILY 09/09 1100 AC 09/09 PO 10/09 1101 1144 Metronidazole/Sodium 100 ML Q8HR 09/08 1300 AC 09/09 Chloride IV 09/15 1259 1350 Hydrocortisone 10 MG BID AC 09/06 1630 AC 09/09 PO 10/06 1631 0631 Apixaban 5 MG BID 09/06 1300 AC 09/09 PO 09/10 2101 0859 Hydrocodone Bitart/ 1 TAB Q4H PRN PRN 09/06 102 5 AC 09/09 Acetaminophen PO 10/06 1026 1353 Metoprolol Tartrate 50 MG BID 09/05 2100 AC PO 09/25 0901 0858 Sucralfate 1 GM BID 09/05 2100 AC 09/09 PO 10/05 2101 0858 Ondansetron HCl 4 MG Q6H PRN PRN 09/05 1625 AC 09/05 SL 10/05 1626 1639 Vancomycin HCl 2,000 MG Q12H 09/05 1600 DC Sodium Chloride 500 ML IV 09/12 1559 0329 Miscellaneous 1 EACH ASDIR 09/05 1455 CKD Information IV 09/12 1454 Albuterol/Ipratropium 3 ML RTQ6H 09/04 0900 AC 09/09 INH 10/04 0901 0810 Cefepime HCl 1,000 MG Q6HR 09/04 0600 AC 09/09 Sodium Chloride 10 ML IV 09/11 0532 1144 Ferrous Sulfate 300 MG BID 09/03 1300 AC 09/09 PO 10/03 1301 0859 Lisinopril 5 MG DAILY 09/03 0900 AC 09/09 PO 10/02 0901 0856 Desmopressin Acetate 0.2 MG PC DIN 09/02 1800 D C 09/08 PO 10/02 1801 1830 Polyethylene Glycol 17 GM DAILY 09/01 0925 AC 0 09/07 PO 10/01 0926 0759 Docusate Sodium 100 MG BID 08/30 2100 AC 09/08 PO 09/29 2101 2028 Phenol 1 SPRAY Q4H PRN PRN 08/30 1820 AC MM 09/29 1821 Acetaminophen 650 MG Q4H PRN PRN 08/30 1525 AC 09/09 PO 09/29 1446 1354 [place] Oil/Swedish 1 XIANG Q12HR 08/29 2100 CKD 09/09 Balsam/Trypsin TOPICAL 09/28 210 0900 Clotrimazole 1 XIANG BID 08/29 2100 CKD 09/09 TOPICAL 09/28 210 0900 Pantoprazole 40 MG Q12HR 08/29 2100 AC 09/09 PO 09/28 210 0859 Vitamin B Complex/ 1 TAB BID 08/28 2100 CKD Vitamin C PO 09/27 210 0856 Citalopram 40 MG DAILY 08/26 0900 AC 09/09 Hydrobromide PO 09/25 0901 0859 SEE DICTATION Electronically Signed by Jani Mckoy MD o n 09/09/18 at 1406 RPT #:[id number] END OF REPORT 2018-09-09 10:03:00-00:00 [facility] ([facility]) Neurosurgical Progress Note REPORT#:[id number] REPORT STATUS: Signed DATE:09/09/18 TIME: 1003 PATIENT: LEIGH FRYE UNIT #: [id number] ROOM/BED: [address] : 80 AGE: 38 SEX: F ATTEND: Johana Mckoy MD ADM AUTHOR: Tanya Rodriguez, VISITOR SERVICES TECHNICIAN * ALL edits or amendments must be made on the el [employer]/computer document * Subjective Comments: Patient seen and examined at the bedside . No nasal drainage, packing in place. Still with some complaints of mild headache. Objective General VS/I O: Vital Signs Date Temp Pulse Resp B/P B/P Mean Pulse Ox FiO2 09/08-09/09 97.7-98.1 60-69 14-18 133-156/65-89 90.2-110.7 94-99 24 hour I O ending at 0700: 09/09 0700 09/08 1900 Intake Total 1680.00 1920.00 Output Total 1050 8675 Balance 630.00 -6755.00 Intake, IV 720.00 620.00 Intake, Oral 960 1300 Number 0 Bowel Movements Number Voids 2 Output, Urine 1050 8675 Patient 186.88 kg Weight Patient Weight Weight (lb): 412 Weight (oz): 9 Weight (kg): 186.88 Medications: Active Meds + DC'd Last 24 Hrs Furosemide 20 MG DAILY PO Metronidazole/Sodium Chloride 100 ML Q8HR IV Potassium Chloride 40 MEQ NOW ONE PO (DC) Hydrocortisone 10 MG BID AC PO Apixaban 5 MG BID PO Hydrocodone Bitart/Acetaminophen 1 TAB Q4H PRN P RN PO Metoprolol Tartrate 50 MG BID PO Sucralfate 1 GM BID PO Ondansetron HCl 4 MG Q6H PRN PRN SL Vancomycin HCl 2,000 MG Q12H IV (DC) Sodium Chloride 500 ML Miscellaneous Information 1 EACH ASDIR IV (CKD) Albuterol/Ipratropium 3 ML RTQ6H INH Cefepime HCl 1,000 MG Q6HR IV Sodium Chloride 10 ML Ferrous Sulfate 300 MG BID PO Lisinopril 5 MG DAILY PO Desmopressin Acetate 0.2 MG PC DIN PO (DC) Polyethylene Glycol 17 GM DAILY PO Docusate Sodium 100 MG BID PO Phenol 1 SPRAY Q4H PRN PRN MM Acetaminophen 650 MG Q4H PRN PRN PO [place] Oil/Swedish Balsam/Trypsin 1 XIANG Q12HR T OPICAL (CKD) Clotrimazole 1 XIANG BID TOPICAL (CKD) Pantoprazole 40 MG Q12HR PO Vitamin B Complex/Vitamin C 1 TAB BID PO (CKD) Citalopram Hydrobromide 40 MG DAILY PO Physical Exam General appearance: alert, awake, oriented Cardiovascular: regular rate rhythm Respiratory: no distress, symmetric expansion Neuro/REFERRAL COORDINATOR: sensory deficit, alert, oriented X 3, CN II-XII intact, EOMI, PERRL, normal reflexes, normal speech, reflexes equal b ilat, no motor deficits, no sensory deficits Results Findings/Data: Laboratory Tests 09/09 09/08 0530 1430 Chemistry Sodium (137 - 145 MMOL/L) 142 Potassium (3.5 - 5.1 MMOL/L) 4.1 Chloride (98 - 107 MMOL/L) 105 Carbon Dioxide (22 - 30 MMOL/L) 32 H BUN (7 - 17 MG/DL) 9 10 Creatinine (0.52 - 1.04 MG/DL) 0.70 0.80 Glomerular Filtr Rate > 60 > 60 Glucose (74 - 106 MG/DL) 114 H Calcium (8.4 - 10.2 MG/DL) 9.2 Radiology data: Recent Impressions: RADIOLOGY - FLUORO GUID CTRL ACC DEV 09/08 1300 Report Impression - Status: SIGNED Entered: 09/08/2018 144 IMPRESSION: Successful non-tunneled PICC placeme nt via the right basilic vein. PLAN: The catheter is ready for immediate use. W hen treatment is completed, this catheter can be removed at the [facility] according to standard hospital protocol. timber harvester operator: Jacqueline Fleming PA-C. Impression By: Dolores Pepe MD SPECIAL PROCEDURES - US GUIDANCE VASC ACCESS 1300 Report Impression - Status: SIGNED Entered: 09/08/2018 1447 IMPRESSION: Successful non-tunneled PICC placeme nt via the right basilic vein. PLAN: The catheter is ready for immediate use. W hen treatment is completed, this catheter can be removed at the [facility] according to standard hospital protocol. timber harvester operator: Jacqueline Fleming PA-C. Impression By: Dolores Pepe MD RADIOLOGY - XR CHEST 2 V 09/09 0910 Report Impression - Status: SIGNED Entered: 09/09/2018 0938 IMPRESSION: Diffuse interstitial and airspace opacities thro ughout both lungs unchanged from the prior examination. Impression By: Xochitl Obrien MD Diagnosis, Assessment Plan Free Text A P: A: 38 year old female now POD#10 from transsphen oidal resection of pituitary adenoma P: -No nasal drainage -Continue nasal packing for a total of 14 days. If she will be discharged Wednesday or early next week, w ill plan to remove packing prior to discharge. Plan to hold Eliquis a couple days prior to removal -Continue PT/OT -Medical management per Dr Mckoy Electronically Signed by Tanya Rodriguez NP on 08/21 04/09 at 1409 RPT #:[id number] END OF REPORT 2018-09-09 10:03:00-00:00 [facility] ([facility]) Neurosurgical Progress Note REPORT#:[id number] REPORT STATUS: Signed DATE:09/09/18 TIME: 1003 PATIENT: LEIGH FRYE UNIT #: [id number] ROOM/BED: [address] : 80 AGE: 38 SEX: F ATTEND: Johana Mckoy MD ADM AUTHOR: Tanya Rodriguez NP * ALL edits or amendments must be made on the [employer]/computer document * Tanya Rodriguez NP 09/09/18 1003: Subjective Comments: Patient seen and examined at the bedside . No nasal drainage, packing in place. Still with some complaints of mild headache. Objective General VS/I O: Vital Signs Date Temp Pulse Resp B/P B/P Mean Pulse Ox FiO2 09/08-09/09 97.7-98.1 60-69 14-18 133-156/65-89 90.2-110.7 94-99 24 hour I O ending at 0700: 09/09 0700 09/08 1900 Intake Total 1680.00 1920.00 Output Total 1050 8675 Balance 630.00 -6755.00 Intake, IV 720.00 620.00 Intake, Oral 960 1300 Number 0 Bowel Movements Number Voids 2 Output, Urine 1050 8675 Patient 186.88 kg Weight Patient Weight Weight (lb): 412 Weight (oz): 9 Weight (kg): 186.88 Medications: Active Meds + DC'd Last 24 Hrs Furosemide 20 MG DAILY PO Metronidazole/Sodium Chloride 100 ML Q8HR IV Potassium Chloride 40 MEQ NOW ONE PO (DC) Hydrocortisone 10 MG BID AC PO Apixaban 5 MG BID PO Hydrocodone Bitart/Acetaminophen 1 TAB Q4H PRN P RN PO Metoprolol Tartrate 50 MG BID PO Sucralfate 1 GM BID PO Ondansetron HCl 4 MG Q6H PRN PRN SL Vancomycin HCl 2,000 MG Q12H IV (DC) Sodium Chloride 500 ML Miscellaneous Information 1 EACH ASDIR IV (CKD) Albuterol/Ipratropium 3 ML RTQ6H INH Cefepime HCl 1,000 MG Q6HR IV Sodium Chloride 10 ML Ferrous Sulfate 300 MG BID PO Lisinopril 5 MG DAILY PO Desmopressin Acetate 0.2 MG PC DIN PO (DC) Polyethylene Glycol 17 GM DAILY PO Docusate Sodium 100 MG BID PO Phenol 1 SPRAY Q4H PRN PRN MM Acetaminophen 650 MG Q4H PRN PRN PO [place] Oil/Swedish Balsam/Trypsin 1 XIANG Q12HR T OPICAL (CKD) Clotrimazole 1 XIANG BID TOPICAL (CKD) Pantoprazole 40 MG Q12HR PO Vitamin B Complex/Vitamin C 1 TAB BID PO (CKD) Citalopram Hydrobromide 40 MG DAILY PO Physical Exam General appearance: alert, awake, oriented Cardiovascular: regular rate rhythm Respiratory: no distress, symmetric expansion Neuro/REFERRAL COORDINATOR: sensory deficit, alert, oriented X 3, CN II-XII intact, EOMI, PERRL, normal reflexes, normal speech, reflexes equal b ilat, no motor deficits, no sensory deficits Results Findings/Data: Laboratory Tests 09/09 09/08 0530 1430 Chemistry Sodium (137 - 145 MMOL/L) 142 Potassium (3.5 - 5.1 MMOL/L) 4.1 Chloride (98 - 107 MMOL/L) 105 Carbon Dioxide (22 - 30 MMOL/L) 32 H BUN (7 - 17 MG/DL) 9 10 Creatinine (0.52 - 1.04 MG/DL) 0.70 0.80 Glomerular Filtr Rate > 60 > 60 Glucose (74 - 106 MG/DL) 114 H Calcium (8.4 - 10.2 MG/DL) 9.2 Radiology data: Recent Impressions: RADIOLOGY - FLUORO GUID CTRL ACC DEV 09/08 1300 Report Impression - Status: SIGNED Entered: 09/08/2018 4257 IMPRESSION: Successful non-tunneled PICC placeme nt via the right basilic vein. PLAN: The catheter is ready for immediate use. W hen treatment is completed, this catheter can be removed at the [facility] according to standard hospital protocol. timber harvester operator: Jacqueline Fleming PA-C. Impression By: Dolores Pepe MD SPECIAL PROCEDURES - US GUIDANCE VASC ACCESS 1300 Report Impression - Status: SIGNED Entered: 09/08/2018 1447 IMPRESSION: Successful non-tunneled PICC placeme nt via the right basilic vein. PLAN: The catheter is ready for immediate use. W hen treatment is completed, this catheter can be removed at the [facility] according to standard hospital protocol. timber harvester operator: Jacqueline Fleming PA-C. Impression By: Dolores Pepe MD RADIOLOGY - XR CHEST 2 V 09/09 0910 Report Impression - Status: SIGNED Entered: 09/09/2018 0938 IMPRESSION: Diffuse interstitial and airspace opacities thro ughout both lungs unchanged from the prior examination. Impression By: Xochitl Obrien MD Diagnosis, Assessment Plan Free Text A P: A: 38 year old female now POD#10 from transsphen oidal resection of pituitary adenoma P: -No nasal drainage -Continue nasal packing for a total of 14 days. If she will be discharged Wednesday or early next week, w ill plan to remove packing prior to discharge. Plan to hold Eliquis a couple days prior to removal -Continue PT/OT -Medical management per Ozzy Moreno 09/10/18 1128: Diagnosis, Assessment Plan Additional comments: agree with above Electronically Signed by Tanya Rodriguez NP on 08/21 04/09 at 1409 RPT #:[id number] END OF REPORT 2018-09-09 10:03:00-00:00 [facility] ([facility]) Neurosurgical Progress Note REPORT#:[id number] REPORT STATUS: Signed DATE:09/09/18 TIME: 1003 PATIENT: LEIGH FRYE UNIT #: [id number] ROOM/BED: [address] : 80 AGE: 38 SEX: F ATTEND: Johana Mckoy MD ADM AUTHOR: Tanya Rodriguez TERE * ALL edits or amendments must be made on the BioST[employer]/computer document * Tanya Rodriguez NP 09/09/18 1003: Subjective Comments: Patient seen and examined at the bedside . No nasal drainage, packing in place. Still with some complaints of mild headache. Objective General VS/I O: Vital Signs Date Temp Pulse Resp B/P B/P Mean Pulse Ox FiO2 09/08-09/09 97.7-98.1 60-69 14-18 133-156/65-89 90.2-110.7 94-99 24 hour I O ending at 0700: 09/09 0700 09/08 1900 Intake Total 1680.00 1920.00 Output Total 1050 8675 Balance 630.00 -6755.00 Intake, IV 720.00 620.00 Intake, Oral 960 1300 Number 0 Bowel Movements Number Voids 2 Output, Urine 1050 8675 Patient 186.88 kg Weight Patient Weight Weight (lb): 412 Weight (oz): 9 Weight (kg): 186.88 Medications: Active Meds + DC'd Last 24 Hrs Furosemide 20 MG DAILY PO Metronidazole/Sodium Chloride 100 ML Q8HR IV Potassium Chloride 40 MEQ NOW ONE PO (DC) Hydrocortisone 10 MG BID AC PO Apixaban 5 MG BID PO Hydrocodone Bitart/Acetaminophen 1 TAB Q4H PRN P RN PO Metoprolol Tartrate 50 MG BID PO Sucralfate 1 GM BID PO Ondansetron HCl 4 MG Q6H PRN PRN SL Vancomycin HCl 2,000 MG Q12H IV (DC) Sodium Chloride 500 ML Miscellaneous Information 1 EACH ASDIR IV (CKD) Albuterol/Ipratropium 3 ML RTQ6H INH Cefepime HCl 1,000 MG Q6HR IV Sodium Chloride 10 ML Ferrous Sulfate 300 MG BID PO Lisinopril 5 MG DAILY PO Desmopressin Acetate 0.2 MG PC DIN PO (DC) Polyethylene Glycol 17 GM DAILY PO Docusate Sodium 100 MG BID PO Phenol 1 SPRAY Q4H PRN PRN MM Acetaminophen 650 MG Q4H PRN PRN PO [place] Oil/Swedish Balsam/Trypsin 1 XIANG Q12HR T OPICAL (CKD) Clotrimazole 1 XIANG BID TOPICAL (CKD) Pantoprazole 40 MG Q12HR PO Vitamin B Complex/Vitamin C 1 TAB BID PO (CKD) Citalopram Hydrobromide 40 MG DAILY PO Physical Exam General appearance: alert, awake, oriented Cardiovascular: regular rate rhythm Respiratory: no distress, symmetric expansion Neuro/REFERRAL COORDINATOR: sensory deficit, alert, oriented X 3, CN II-XII intact, EOMI, PERRL, normal reflexes, normal speech, reflexes equal b ilat, no motor deficits, no sensory deficits Results Findings/Data: Laboratory Tests 09/09 09/08 0530 1430 Chemistry Sodium (137 - 145 MMOL/L) 142 Potassium (3.5 - 5.1 MMOL/L) 4.1 Chloride (98 - 107 MMOL/L) 105 Carbon Dioxide (22 - 30 MMOL/L) 32 H BUN (7 - 17 MG/DL) 9 10 Creatinine (0.52 - 1.04 MG/DL) 0.70 0.80 Glomerular Filtr Rate > 60 > 60 Glucose (74 - 106 MG/DL) 114 H Calcium (8.4 - 10.2 MG/DL) 9.2 Radiology data: Recent Impressions: RADIOLOGY - FLUORO GUID CTRL ACC DEV 09/08 1300 Report Impression - Status: SIGNED Entered: 09/08/2018 1447 IMPRESSION: Successful non-tunneled PICC placeme nt via the right basilic vein. PLAN: The catheter is ready for immediate use. W hen treatment is completed, this catheter can be removed at the [facility] according to standard hospital protocol. timber harvester operator: Jacqueline Fleming PA-C. Impression By: Dolores Pepe MD SPECIAL PROCEDURES - US GUIDANCE VASC ACCESS 1300 Report Impression - Status: SIGNED Entered: 09/08/2018 1447 IMPRESSION: Successful non-tunneled PICC placeme nt via the right basilic vein. PLAN: The catheter is ready for immediate use. W hen treatment is completed, this catheter can be removed at the [facility] according to standard hospital protocol. timber harvester operator: Jacqueline Fleming PA-C. Impression By: Dolores Pepe MD RADIOLOGY - XR CHEST 2 V 09/09 0910 Report Impression - Status: SIGNED Entered: 09/09/2018 0938 IMPRESSION: Diffuse interstitial and airspace opacities thro ughout both lungs unchanged from the prior examination. Impression By: 16 - Ida Obrien MD Diagnosis, Assessment Plan Free Text A P: A: 38 year old female now POD#10 from transsphen oidal resection of pituitary adenoma P: -No nasal drainage -Continue nasal packing for a total of 14 days. If she will be discharged Wednesday or early next week, w ill plan to remove packing prior to discharge. Plan to hold Eliquis a couple days prior to removal -Continue PT/OT -Medical management per Ozzy Moreno 09/10/18 1128: Diagnosis, Assessment Plan Additional comments: agree with above Electronically Signed by Tanya Rodriguez NP on 08/21 04/09 at 1409 Electronically Signed by Ozzy Viera MD on 08/21 05/10 at 1128 RPT #:[id number] END OF REPORT 2018-09-08 23:29:00-00:00 [id number] [place] [address] PATIENT NAME: LEIGH FRYE ADMIT DATE: 08/25/18 ACCOUNT NO: [id number] ROOM NO: [id number] AGE: 38 REPORT TYPE: PROGRESS NOTE SEX: F ADMITTING PHYSICIAN:Jani Mckoy MD ATTENDING PHYSICIAN:Jani Mckoy MD DATE: ADDENDUM TO GENERAL PROGROSS NOTE SUBJECTIVE: A 38-year-old female postop pituitar y macroadenoma resection per sphenoid approach. 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 The patient is still recovering from her first surgery, next surgery will be in 4 weeks from no w. She may need removal of an old lap band that has been there for mor e than 5 years. Other consideration to have surgical lesions is ____ nodule in the righ t lower lobe of the thyroid, which is about 2 cm in size, ____ seen it and do cumented the surgical intervention. Her headaches are significantly re duced. Sinus pain is also improving. She had developed bilateral aspiration pneumonia 5 days ago, was put on vancomycin, cefoxitin and Flagyl. She has con tinued to improve, no fever, decreased shortness of breath. [facility] showed she had bilateral congestive changes, it is pr obably due to fluid retention with multiple hormones she is getting. We will disc ontinue the hormones and give her intravenous Lasix 80 mg, IV potassium, check e lectrolytes later in day and see if further dose is necessary now or some other time. 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 She has history of previous appendix carcinoid removed. She has elev ated parathyroid level and a nodule in the thyroid which is going to be investigated. R ecent blood cultures are all negative and urine cultures also are negative. I nfluenza screen is negative. Family educated on future plans, she understands and may need in the future surgery on the adenomas and thyroid or parathyro id. If there is recurrence of the carcinoid that may also need to be attended to. Dictated By: Jani Mckoy MD WT: PN:GISSELLE/YONATHAN/JERSON Conf#: [id number]/DID#: [id number] Authenticated by Jani Mckoy MD On 06:08:23 AM at 0608 PATIENT NAME: LEIGH FRYE 2018-09-08 16:06:00-00:00 [facility] ([facility]) General Progress Note REPORT#:[id number] REPORT STATUS: Signed DATE:09/08/18 TIME: 160 PATIENT: LEIGH FRYE UNIT #: [id number] ROOM/BED: [address] : 80 AGE: 38 SEX: F ATTEND: Tho Mckoy MD ADM AUTHOR: Jani Mckoy MD * ALL edits or amendments must be made on the el [employer]/computer document * Subjective Comments: Vital Signs Date Time Temp Pulse Resp B/P B/P Pulse O2 O2 F low FiO2 Mean Ox Delivery Rate 09/08 1519 98.1 68 14 137/86 102.9 99 Room air 06/20 1128 97.7 60 14 154/89 110.7 96 Room air 09/08 0859 95 Room air 09/08 0718 97.7 68 20 159/94 115.8 97 09/08 0342 97.7 67 16 134/92 105.6 94 Room air 09/08 0103 97.7 62 16 144/84 104.3 95 Room air 09/07 1951 97.7 82 16 139/75 96.5 96 Room air 09/07 1910 96 Room air 09/07 1535 97.9 69 15 161/82 108.6 100 Nasal cannula 09/07 1214 98.2 62 15 143/83 103.4 95 Room air 09/07 0840 168/92 117 09/07 0825 98 Room air 09/07 0747 97.9 65 162/112 128.5 95 09/07 0325 97.2 64 14 142/84 103.4 95 Room air 09/06 2325 97.3 65 14 156/99 118.0 94 Room air 09/06 2319 100 Room air 09/06 1951 98.1 74 14 142/84 103.5 95 Room air Laboratory Tests 09/08 09/08 09/07 09/06 09/06 1430 0440 0515 1101 1101 Chemistry Sodium (137 - 145 MMOL/L) 142 Potassium (3.5 - 5.1 MMOL/L) 4.1 Chloride (98 - 107 MMOL/L) 105 Carbon Dioxide (22 - 30 MMOL/L) 32 H BUN (7 - 17 MG/DL) 10 Creatinine (0.52 - 1.04 MG/DL) 0.80 Glomerular Filtr Rate > 60 Glucose (74 - 106 MG/DL) 114 H Calcium (8.4 - 10.2 MG/DL) 9.2 B-Natriuretic Peptide (0 - 100 PG/ML) 222.0 H Homocysteine (0.0 - 15.0 umol/L) 6.3 Cortisol AM Sample (4.46 - 22.7 ug/dL) 19.70 ACTH (7.2 - 63.3 pg/mL) 16.3 09/05 1814 Chemistry Cortisol PM Sample (3.09 - 16.66 mcg/dL) 9.97 Laboratory Tests 09/07 0320 Toxicology Vancomycin Trough (10.0 - 20.0 UG/ML) 10.7 Microbiology Date/Time Procedure - Status Source Growth 09/05 1829 Influenza Virus Type B Antigen - COM P NASOPHARG 09/05 1829 Influenza Virus Type A Antigen - COM P NASOPHARG Laboratory Tests: 09/08 09/08 1430 0440 Chemistry Sodium (137 - 145 MMOL/L) 142 Potassium (3.5 - 5.1 MMOL/L) 4.1 Chloride (98 - 107 MMOL/L) 105 Carbon Dioxide (22 - 30 MMOL/L) 32 H BUN (7 - 17 MG/DL) 10 Creatinine (0.52 - 1.04 MG/DL) 0.80 Glomerular Filtr Rate > 60 Glucose (74 - 106 MG/DL) 114 H Calcium (8.4 - 10.2 MG/DL) 9.2 B-Natriuretic Peptide (0 - 100 PG/ML) 222.0 H Recent Impressions: RADIOLOGY - XR CHEST 2 V 09/07 1715 Report Impression - Status: SIGNED Entered: 09/07/2018 1745 Impression: 1. The focal infiltrate of the right mid to lowe r lung has slightly improved since the prior exam. 2. There is dense interstitial opacification thr oughout the mid and lower lungs, worsened from prior study. Differen tial considerations include pulmonary edema or an atypical infectiou s process. Impression By: [email or web address] - Ko Valles M.D. RADIOLOGY - FLUORO GUID CTRL ACC DEV 09/08 1300 Report Impression - Status: SIGNED Entered: 09/08/2018 1447 IMPRESSION: Successful non-tunneled PICC placeme nt via the right basilic vein. PLAN: The catheter is ready for immediate use. W hen treatment is completed, this catheter can be removed at the [facility] according to standard hospital protocol. timber harvester operator: Jacqueline Fleming PA-C. Impression By: [email or web address] - Alireza Pepe MD SPECIAL PROCEDURES - US GUIDANCE VASC ACCESS 1300 Report Impression - Status: SIGNED Entered: 09/08/2018 1447 IMPRESSION: Successful non-tunneled PICC placeme nt via the right basilic vein. PLAN: The catheter is ready for immediate use. W hen treatment is completed, this catheter can be removed at the [facility] according to standard hospital protocol. timber harvester operator: Jacqueline Fleming PA-C. Impression By: Dolores Pepe MD Microbiology: 09/05 1829 NASOPHARG: Influenza Virus Type B Ant igen - COMP 09/05 1829 NASOPHARG: Influenza Virus Type A Ant igen - COMP Recent Impressions: RADIOLOGY - XR CHEST 2 V 09/07 1715 Report Impression - Status: SIGNED Entered: 09/07/2018 1745 Impression: 1. The focal infiltrate of the right mid to lowe r lung has slightly improved since the prior exam. 2. There is dense interstitial opacification thr oughout the mid and lower lungs, worsened from prior study. Differen tial considerations include pulmonary edema or an atypical infectiou s process. Impression By: [email or web address] - Ko Valles M.D. RADIOLOGY - FLUORO GUID CTRL ACC DEV 09/08 1300 Report Impression - Status: SIGNED Entered: 09/08/2018 1447 IMPRESSION: Successful non-tunneled PICC placeme nt via the right basilic vein. PLAN: The catheter is ready for immediate use. W hen treatment is completed, this catheter can be removed at the [facility] according to standard hospital protocol. timber harvester operator: Jacqueline Fleming PA-C. Impression By: Dolores Pepe MD SPECIAL PROCEDURES - US GUIDANCE VASC ACCESS 1300 Report Impression - Status: SIGNED Entered: 09/08/2018 1447 IMPRESSION: Successful non-tunneled PICC placeme nt via the right basilic vein. PLAN: The catheter is ready for immediate use. W hen treatment is completed, this catheter can be removed at the [facility] according to standard hospital protocol. timber harvester operator: Jacqueline Fleming PA-C. Impression By: Dolores Pepe MD 09/08 09/08 1430 0440 Chemistry Sodium (137 - 145 MMOL/L) 142 Potassium (3.5 - 5.1 MMOL/L) 4.1 Chloride (98 - 107 MMOL/L) 105 Carbon Dioxide (22 - 30 MMOL/L) 32 H BUN (7 - 17 MG/DL) 10 Creatinine (0.52 - 1.04 MG/DL) 0.80 Glomerular Filtr Rate > 60 Glucose (74 - 106 MG/DL) 114 H Calcium (8.4 - 10.2 MG/DL) 9.2 B-Natriuretic Peptide (0 - 100 PG/ML) 222.0 H Current Medications Sig/Roshan Start time Last Medication Dose Route Stop Time Status Admin Metronidazole/Sodium 100 ML Q8HR 09/08 1300 AC 09/08 Chloride IV 09/15 1259 1218 Potassium Chloride 40 MEQ NOW ONE 09/08 1300 DC 09/08 PO 09/08 1301 1225 Furosemide 80 MG NOW ONE 09/08 0900 DC 09/08 IV 09/08 0901 0857 Fludrocortisone 0.1 MG DAILY 09/07 0900 DC 08/20 9 Acetate PO 10/07 0901 0807 Hydrocortisone 10 MG BID AC 09/06 1630 AC 08/21 0 PO 10/06 1631 0830 Apixaban 5 MG BID 09/06 1300 AC 09/08 PO 09/10 2101 0839 Hydrocodone Bitart/ 1 TAB Q4H PRN PRN 09/06 102 5 AC 09/08 Acetaminophen PO 10/06 1026 1342 Metoprolol Tartrate 50 MG BID 09/05 2100 AC PO 09/25 0901 0843 Sucralfate 1 GM BID 09/05 2100 AC 09/08 PO 10/05 2101 0839 Metronidazole/Sodium 100 ML Q6HR 09/05 1800 DC 09/08 Chloride IV 09/12 1759 0511 Ondansetron HCl 4 MG Q6H PRN PRN 09/05 1625 AC 09/05 SL 10/05 1626 1639 Vancomycin HCl 2,000 MG Q12H 09/05 1600 AC 08/21 0 Sodium Chloride 500 ML IV 09/12 1559 0346 Miscellaneous 1 EACH ASDIR 09/05 1455 CKD Information IV 09/12 1454 Albuterol/Ipratropium 3 ML RTQ6H 09/04 0900 AC 09/08 INH 10/04 0901 0859 Cefepime HCl 1,000 MG Q6HR 09/04 0600 AC 09/08 Sodium Chloride 10 ML IV 09/11 0532 1207 Ferrous Sulfate 300 MG BID 09/03 1300 AC 09/08 PO 10/03 1301 0839 Lisinopril 5 MG DAILY 09/03 0900 AC 09/08 PO 10/02 0901 0840 Desmopressin Acetate 0.2 MG PC DIN 09/02 1800 A C 09/07 PO 10/02 1801 1702 Polyethylene Glycol 17 GM DAILY 09/01 0925 AC 0 09/07 PO 10/01 0926 0759 Docusate Sodium 100 MG BID 08/30 2100 AC 09/08 PO 09/29 210 0839 Phenol 1 SPRAY Q4H PRN PRN 08/30 1820 AC MM 09/29 1821 Acetaminophen 650 MG Q4H PRN PRN 08/30 1525 AC 09/08 PO 09/29 1446 1341 [place] Oil/Swedish 1 XIANG Q12HR 08/29 2100 CKD 09/08 Balsam/Trypsin TOPICAL 09/28 210 0840 Clotrimazole 1 XIANG BID 08/29 2100 CKD 09/07 TOPICAL 09/28 210 0807 Pantoprazole 40 MG Q12HR 08/29 2100 AC 09/08 PO 09/28 210 0840 Vitamin B Complex/ 1 TAB BID 08/28 2100 CKD Vitamin C PO 09/27 2100 0843 Citalopram 40 MG DAILY 08/26 09 AC 09/08 Hydrobromide PO 09/25 0901 0830 SEE DICTATION Electronically Signed by Jani Mckoy MD o n 09/08/18 at 1607 RPT #:[id number] END OF REPORT 2018-09-08 13:31:00-00:00 [facility] ([facility] Brief Op Note REPORT#:[id number] REPORT STATUS: Signed DATE:09/08/18 TIME: 1331 PATIENT: LEIGH FRYE UNIT #: [id number] ROOM/BED: [address] : 80 AGE: 38 SEX: F ATTEND: Johana Mckoy MD ADM AUTHOR: Jacqueline Fleming * ALL edits or amendments must be made on the el ectronic/computer document * Op/Inv Proc Note - Brief Pre-procedure diagnosis: Need for IV access Post-procedure diagnosis: same as pre procedure dx Procedures performed: PICC line placement Primary Surgeon: Jacqueline Fleming PA-C Ophthalmic Medical Technician(s): none Anesthesia: local anesthesia Findings: Successful ultrasound and fluoroscopic guided PI CC placement. Pt tolerated procedure well. More detailed report in PACS. Complications: none Estimated blood loss in ml's: <15mL Specimens removed/altered: none Disposition: return to floor, stable Electronically Signed by Jacqueline Fleming on 0 09/08/18 at 1332 RPT #:[id number] END OF REPORT 2018-09-08 13:31:00-00:00 [facility] ([facility]) Brief Op Note REPORT#:[id number] REPORT STATUS: Signed DATE:09/08/18 TIME: 1331 PATIENT: LEIGH FRYE UNIT #: [id number] ROOM/BED: [address] : 80 AGE: 38 SEX: F ATTEND: Johana Mckoy MD ADM AUTHOR: Jacqueline Fleming * ALL edits or amendments must be made on the el [employer]/computer document * Op/Inv Proc Note - Brief Pre-procedure diagnosis: Need for IV access Post-procedure diagnosis: same as pre procedure dx Procedures performed: PICC line placement Primary Surgeon: Jacqueline Fleming PA-C Ophthalmic Medical Technician(s): none Anesthesia: local anesthesia Findings: Successful ultrasound and fluoroscopic guided PI CC placement. Pt tolerated procedure well. More detailed report in PACS. Complications: none Estimated blood loss in ml's: <15mL Specimens removed/altered: none Disposition: return to floor, stable Electronically Signed by Jacqueline Fleming on 0 09/08/18 at 1332 Electronically Signed by Alireza Pepe MD on 08/21 04/09 at 0937 RPT #:[id number] END OF REPORT 2018-09-07 15:53:00-00:00 [id number] [facility] [address] [place] [address] PATIENT NAME: LEIGH FRYE ADMIT DATE: 08/25/18 ACCOUNT NO: [id number] ROOM NO: [facility] AGE: 38 REPORT TYPE: PROGRESS NOTE SEX: F ADMITTING PHYSICIAN:Jani Mckoy MD ATTENDING PHYSICIAN:Jani Mckoy MD DATE: ADDENDUM TO GENERAL PROGRESS NOTE SUBJECTIVE: The patient is a 38-year-old female with pituitary mass, which was removed ____ approached about a week ago. The pa clare developed aspiration pneumonia, was back in ICU. This is resolving. H er shortness of breath and cough has improved. 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 Further investigation about parathyroid are in process and will be completed . 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 She has morbid obesity, hypertension, and subcutaneous nodules and the thyroid nodule. We will plan for biopsy. It is a ppropriate as outpatient. The patient will continue Eliquis, which alicia l be put on hold prior to removing the nasal packing. The patient will be on antibiotic therapy for another 5 days. Her cough and wheezing have significantly resolv ed. Right thyroid gland mass was about 2.7 and will be followed up with ____ to ambulate. Her pain control is stable, and [facility]. She has had a previous carcinoid resection and followup urine test for hydroxy and ____ acid is in progress. Replacement therapy with hormo ne is continuous. Symptom wang, she is ____. No change in vision or hearing, de creased cough. No shortness of breath, nausea, vomiting, or diarrhea. No chest pain. Pr ogressing with therapy. Dictated By: Jani Mckoy MD WT: PN:GISSELLE/YONATHAN/JERSON Conf#: [id number]/DID#: [id number] Authenticated by Jani Mckoy MD On 06:07:16 AM at 0607 PATIENT NAME: LEIGH FRYE 2018-09-07 13:54:00-00:00 [facility] ([facility]) General Progress Note REPORT#:[id number] REPORT STATUS: Signed DATE:09/07/18 TIME: 1354 PATIENT: LEIGH FRYE UNIT #: [id number] [facility] AGE: 38 SEX: F ATTEND: Johana Mckoy MD ADM AUTHOR: Jani Mckoy MD * ALL edits or amendments must be made on the [employer]/computer document * Subjective Comments: Vital Signs Date Time Temp Pulse Resp B/P B/P Pulse O2 O2 F low FiO2 Mean Ox Delivery Rate 09/07 1214 98.2 62 15 143/83 103.4 95 Room air 09/07 0840 168/92 117 09/07 0825 98 Room air 21 09/07 0747 97.9 65 162/112 128.5 95 09/07 0325 97.2 64 14 142/84 103.4 95 Room air 09/06 2325 97.3 65 14 156/99 118.0 94 Room air 09/06 2319 100 Room air 09/06 1951 98.1 74 14 142/84 103.5 95 Room air /18 1552 98.8 68 16 124/86 98.4 94 06/18 1427 64 21 144/85 110 94 06/18 1330 67 32 141/63 91 93 06/18 1309 68 23 145/75 101 06/18 1200 98.0 06/18 1200 67 34 156/90 115 06/18 1100 71 25 154/70 101 94 06/18 1030 74 22 153/69 99 91 06/18 1000 73 22 148/89 112 92 06/18 0900 72 24 181/80 115 90 06/18 0830 68 16 159/93 118 92 06/18 0800 99.1 06/18 0800 62 14 151/66 95 91 06/18 0730 64 18 141/71 101 93 06/18 0700 64 18 136/60 87 91 06/18 0600 66 29 136/63 91 89 06/18 0530 67 25 140/67 96 96 06/18 0500 64 14 150/76 106 91 06/18 0430 64 15 146/78 106 99 06/18 0400 97.6 06/18 0400 62 9 150/57 93 100 06/18 0300 68 17 144/68 98 91 06/18 0230 65 26 128/63 88 95 09/06 0200 68 28 141/67 95 96 09/06 0130 64 18 138/79 101 100 0618 0100 62 17 125/74 94 93 06/18 0030 65 19 152/80 108 92 06 0000 97.8 09/06 0000 72 19 130/61 88 93 06 2330 77 33 147/65 94 98 09/05 2300 74 22 152/93 112 96 09/05 2230 75 18 149/77 104 95 09/05 2200 74 16 147/68 98 88 09/05 2130 78 18 145/82 107 87 09/05 2100 81 18 134/69 95 91 09/05 2030 87 27 140/64 91 95 09/06 1999 98.1 09/06 1999 90 24 150/75 104 92 09/05 1938 100 Room air 0.646756 21 09/05 1900 80 26 162/92 119 93 09/05 1831 80 24 130/73 105 96 09/05 1800 79 25 161/84 114 98 09/05 1730 77 14 149/86 106 91 09/05 1700 73 22 168/81 117 94 09/05 1630 80 22 145/70 101 95 09/05 1600 98.5 09/05 1600 78 26 163/72 104 95 09/05 1536 86 30 181/78 112 96 09/05 1530 83 23 96 09/05 1500 92 35 98 09/05 1430 80 24 94 09/05 1359 81 25 95 Laboratory Tests: 09/07 0320 Toxicology Vancomycin Trough (10.0 - 20.0 UG/ML) 10.7 Microbiology: 09/05 1829 NASOPHARG: Influenza Virus Type B Ant igen - COMP 09/05 183 NASOPHARG: Influenza Virus Type A Ant igen - COMP 09/05 0753 URINE: Streptococcus pneumoniae Antig en (M - COMP 09/05 0753 URINE: Legionella Antigen - COMP Current Medications Sig/Roshan Start time Last Medication Dose Route Stop Time Status Admin Fludrocortisone 0.1 MG DAILY 09/07 0900 AC 08/20 9 Acetate PO 10/07 0901 0807 Hydrocortisone 10 MG BID AC 09/06 1630 AC 09/07 PO 10/06 1631 0800 Apixaban 5 MG BID 09/06 1300 AC 09/07 PO 09/10 2101 0802 Hydrocodone Bitart/ 1 TAB Q4H PRN PRN 09/06 102 5 AC 09/07 Acetaminophen PO 10/06 1026 1159 Metoprolol Tartrate 50 MG BID 09/05 2100 AC PO 09/25 0901 0802 Sucralfate 1 GM BID 09/05 2100 AC 09/07 PO 10/05 2101 0803 Metronidazole/Sodium 100 ML Q6HR 09/05 1800 AC 09/07 Chloride IV 09/12 1759 1159 Ondansetron HCl 4 MG Q6H PRN PRN 09/05 1625 AC 09/05 SL 10/05 1626 1639 Vancomycin HCl 2,000 MG Q12H 09/05 1600 AC Sodium Chloride 500 ML IV 09/12 1559 0405 Miscellaneous 1 EACH ASDIR 09/05 1455 CKD Information IV 09/12 1454 Albuterol/Ipratropium 3 ML RTQ6H 09/04 0900 AC 09/07 INH 10/04 0901 1241 Cefepime HCl 1,000 MG Q6HR 09/04 0600 AC 09/07 Sodium Chloride 10 ML IV 09/11 0532 1159 Ferrous Sulfate 300 MG BID 09/03 1300 AC 09/07 PO 10/03 1301 0801 Lisinopril 5 MG DAILY 09/03 0900 AC 09/07 PO 10/02 0901 0800 Desmopressin Acetate 0.2 MG PC DIN 09/02 1800 A C 09/06 PO 10/02 1801 1818 Polyethylene Glycol 17 GM DAILY 09/01 0925 AC 0 09/07 PO 10/01 0926 0759 Docusate Sodium 100 MG BID 08/30 2100 AC 09/07 PO 09/29 2101 0803 Phenol 1 SPRAY Q4H PRN PRN 08/30 1820 AC MM 09/29 1821 Acetaminophen 650 MG Q4H PRN PRN 08/30 1525 AC 09/06 PO 09/29 1446 2048 [place] Oil/Swedish 1 XIANG Q12HR 08/29 2100 CKD 09/07 Balsam/Trypsin TOPICAL 09/28 210 0803 Clotrimazole 1 XIANG BID 08/29 2100 CKD 09/07 TOPICAL 09/28 2101 0807 Pantoprazole 40 MG Q12HR 08/29 2100 AC 09/07 PO 09/28 2101 0803 Vitamin B Complex/ 1 TAB BID 08/28 2100 CKD Vitamin C PO 09/27 2101 0801 Citalopram 40 MG DAILY 08/26 09 AC 09/07 Hydrobromide PO 09/25 0901 0802 SEE DICTATION Electronically Signed by Jani Mckoy MD n 09/07/18 at 1355 RPT #:[id number] END OF REPORT 2018-09-07 13:53:00-00:00 [facility]U [facility] ([facility]) General Progress Note REPORT#:[id number] REPORT STATUS: Signed DATE:09/07/18 TIME: 1353 PATIENT: LEIGH FRYE UNIT #: [id number] ROOM/BED: [address] : 80 AGE: 38 SEX: F ATTEND: Johana Mckoy MD ADM AUTHOR: Jani Mckoy MD * ALL edits or amendments must be made on the [employer] document * Subjective Comments: Vital Signs Date Time Temp Pulse Resp B/P B/P Pulse O2 O2 F low FiO2 Mean Ox Delivery Rate 09/07 1214 98.2 62 15 143/83 103.4 95 Room air 09/07 0840 168/92 117 09/07 0825 98 Room air 21 09/07 0747 97.9 65 162/112 128.5 95 09/07 0325 97.2 64 14 142/84 103.4 95 Room air 09/06 2325 97.3 65 14 156/99 118.0 94 Room air 09/06 2319 100 Room air 09/06 1951 98.1 74 14 142/84 103.5 95 Room air 09/06 1552 98.8 68 16 124/86 98.4 94 09/06 1427 64 21 144/85 110 94 09/06 1330 67 32 141/63 91 93 09/06 1309 68 23 145/75 101 09/06 1200 98.0 09/06 1200 67 34 156/90 115 18 1100 71 25 154/70 101 94 09/06 1030 74 22 153/69 99 91 09/06 1000 73 22 148/89 112 92 09/06 0900 72 24 181/80 115 90 06/18 0830 68 16 159/93 118 92 06/18 0800 99.1 06/18 0800 62 14 151/66 95 91 06/18 0730 64 18 141/71 101 93 06/18 0700 64 18 136/60 87 91 06/18 0600 66 29 136/63 91 89 06/18 0530 67 25 140/67 96 96 06/18 0500 64 14 150/76 106 91 06/18 0430 64 15 146/78 106 99 06/18 0400 97.6 06/18 0400 62 9 150/57 93 100 06/18 0300 68 17 144/68 98 91 06/18 0230 65 26 128/63 88 95 06/18 0200 68 28 141/67 95 96 06/18 0130 64 18 138/79 101 100 06/18 0100 62 17 125/74 94 93 06/18 0030 65 19 152/80 108 92 06/18 0000 97.8 06/18 0000 72 19 130/61 88 93 06/17 2330 77 33 147/65 94 98 06/17 2300 74 22 152/93 112 96 06/17 2230 75 18 149/77 104 95 06/ 2200 74 16 147/68 98 88 06/17 2130 78 18 145/82 107 87 06/17 2100 81 18 134/69 95 91 06/17 2030 87 27 140/64 91 95 06/17 2000 98.1 09/05 2000 90 24 150/75 104 92 06/ 1938 100 Room air 0.261076 21 09/05 1900 80 26 162/92 119 93 09/05 1831 80 24 130/73 105 96 / 1800 79 25 161/84 114 98 09/05 1730 77 14 149/86 106 91 09/05 1700 73 22 168/81 117 94 06 1630 80 22 145/70 101 95 09/05 1600 98.5 09/05 1600 78 26 163/72 104 95 09/05 1536 86 30 181/78 112 96 / 1530 83 23 96 / 1500 92 35 98 / 1430 80 24 94 09/05 1359 81 25 95 Microbiology: 09/05 1830 NASOPHARG: Influenza Virus Type B Ant igen - COMP 09/05 1830 NASOPHARG: Influenza Virus Type A Ant igen - COMP 06/17 0753 URINE: Streptococcus pneumoniae Antig en (M - COMP 09/05 752 URINE: Legionella Antigen - COMP SEE DICTATION Electronically Signed by Jani Mckoy MD o n 09/07/18 at 1353 [id number] END OF REPORT 2018-09-06 14:19:00-00:00 [id number] [facility] [address] [place] [address] PATIENT NAME: LEIGH FRYE ADMIT DATE: 08/25/18 ACCOUNT NO: [id number] ROOM NO: [facility] AGE: 38 REPORT TYPE: PROGRESS NOTE SEX: F ADMITTING PHYSICIAN:Jani Mckoy MD ATTENDING PHYSICIAN:Jani Mckoy MD DATE: ADDENDUM The patient is back to ICU after being too sedat ed, developing aspiration pneumonia, right more than l eft, being treated with vancomycin and levofloxacin. She has packing post transsphenoidal ____ surge ry. She will continue antibiotic therapy for the sinuses with Flagyl and cefepime in place of Unasyn and ____ vancomycin. With this, fever has resolv ed, coughing has decreased, shortness of breath has resolved. She still has headaches. She was changed to single agent with hydrocodon e and ____ morphine altogether, Ultram also ____ and one agent only. There is no fever and si nus pain is due to packing issues. The patient's PEG is supposed to be removed in a wee k from now. Meanwhile, she remains on blood thinners for prevention of DVT and pulmonary embolism and has been stopped, removed the packing for safety or use Eliquis ____ Xarelto ____ this needs to be removed ____ only 48 hours befo re the procedure ____ 7 days. Blood pressure is stable. Her 24-hour ur ine hydroxy steroids were reported and ____ 136 mg per day, normal upper is 42. Anythin g more than 3 times normal limit is considered significant. In addition to evaluating her thyroid nodule and parathyroid adenoma, we will check her CT of the abdomen for adrenal adenomas ____ carcinoid may be necessary . Electrolytes are being monitored and corrected. Her aldosterone level was low rather than high and that do not need to give her ____ supplement. The patient is awar e of postoperative thromboembolic risk, will stay on anticoagulatio n indefinitely. The patient's possible myopathy will be evaluated after furthe r recovery for rehabilitation purposes as well as osteoporosis. Dictated By: Jani Mckoy MD WT: PN:Z.AMANDA/YONATHAN/JERSON Conf#: [id number]/DID#: [id number] Authenticated by Jani Mckoy MD On 06:07:03 AM at 0607 PATIENT NAME: LEIGH FRYE 2018-09-06 14:10:00-00:00 [id number] [place] [address] PATIENT NAME: LEIGH FRYE ADMIT DATE: 08/25/18 ACCOUNT NO: [id number] ROOM NO: [facility] AGE: 38 REPORT TYPE: PROGRESS NOTE SEX: F ADMITTING PHYSICIAN:Jani Mckoy MD ATTENDING PHYSICIAN:Jani Mckoy MD DATE: ADDENDUM TO GENERAL PROGRESS NOTE This is a 38-year-old female admitted with [facility], had a pituitary tumor resected about a week ago. Postop, she had rhino rrhea for a day, which has resolved. There is a PEG tube in place that is p lanned for 2 weeks. She had developed aspiration pneumonia over the weekend ____ back in ICU. She is coughing less, has right lower lobe infiltrate. The patient is on vancomycin along with Maxipime and Flagyl to cover the sinu sitis as a result of ____ procedure. Her sinus headaches are better. ____ ambulate with help. She has pulmonary embolism, probably is pending. Diabeti c control is satisfactory. ____ progress with her physi carol activity. 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 Her other issues, which are being followed, thyroid nodule about 2.7 on the ultrasound and later on biopsy. She has previous parathyroid nodule, ___ _ mass. Hypertension control is satisfactory, high risk for DVT, resume Eliqu is, nasal packing that can be removed in about 7 days. Postop Eliquis at 5 day s ____ local area to heal. Ambulation progressed with therapy. 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 Blood sugars are satisfactory. Anemia is chronic, stable. 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 She has thy roid nodule, which now ultrasound done and the patient functional _ ___. We will check ____ for any adrenal hyperplasia or nodules, which have contributed to Cu shing syndrome. 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 This mainly is consistent with ____ type tumor. ____ parathyroid relative ____ carcinoid syndrome. She had appendix resected. L ab data is pending for the urine. A 5HIAA ____ benign and manageable. Dictated By: Jani Mckoy MD WT: PN:ZCIERRA/YONATHAN/JERSON Conf#: [id number]/DID#: [id number] Authenticated by Jani Mckoy MD On 06:07:00 AM PATIENT NAME: MELVALEIGHJerrod RUBIO at 0607 PATIENT NAME: MELVALEIGHJerrod RUBIO 2018-09-06 10:25:00-00:00 [facility] ([facility]) General Progress Note REPORT#:[id number] REPORT STATUS: Signed DATE:09/06/18 TIME: 1025 PATIENT: MELVALEIGH UNIT #: [id number] [address] AGE: 38 SEX: F ATTEND: Johana Mckoy MD ADM AUTHOR: Jani Mckoy MD * ALL edits or amendments must be made on the el [employer] document * Subjective Comments: SEE DICTATIONVital Signs Date Time Temp Pulse Resp B/P B/P Pulse O2 O2 F low FiO2 Mean Ox Delivery Rate 09/06 0830 68 16 159/93 118 92 09/06 0800 99.1 09/06 0800 62 14 151/66 95 91 09/06 0730 64 18 141/71 101 93 / 0700 64 18 136/60 87 91 18 0600 66 29 136/63 91 89 09/06 0530 67 25 140/67 96 96 06/18 0500 64 14 150/76 106 91 09/06 0430 64 15 146/78 106 99 /18 0400 97.6 09/06 0400 62 9 150/57 93 100 06/18 0300 68 17 144/68 98 91 06/18 0230 65 26 128/63 88 95 /18 0200 68 28 141/67 95 96 /18 0130 64 18 138/79 101 100 /18 0100 62 17 125/74 94 93 06/18 0030 65 19 152/80 108 92 06 0000 97.8 09/06 0000 72 19 130/61 88 93 09/05 2330 77 33 147/65 94 98 09/05 2300 74 22 152/93 112 96 09/05 2230 75 18 149/77 104 95 09/05 2200 74 16 147/68 98 88 06/ 2130 78 18 145/82 107 87 09/05 2100 81 18 134/69 95 91 09/05 2030 87 27 140/64 91 95 09/05 2000 98.1 09/05 2000 90 24 150/75 104 92 06/ 1938 100 Room air 0.018887 21 09/05 1900 80 26 162/92 119 93 09/05 1831 80 24 130/73 105 96 09/05 1800 79 25 161/84 114 98 09/05 1730 77 14 149/86 106 91 06/17 1700 73 22 168/81 117 94 06/17 1630 80 22 145/70 101 95 06/17 1600 98.5 06/17 1600 78 26 163/72 104 95 06/17 1536 86 30 181/78 112 96 06/17 1530 83 23 96 06/17 1500 92 35 98 06/17 1430 80 24 94 06/17 1359 81 25 95 06/17 1310 93 25 147/66 95 96 06/17 1300 84 19 95 06/17 1230 88 22 95 06/17 1200 98.0 06/17 1200 71 16 95 06/17 1130 78 26 94 06/17 1100 80 32 95 06/17 1028 77 27 141/73 100 96 06/17 1000 76 24 91 06/17 0930 83 32 157/88 116 97 06/17 0900 87 24 170/74 106 95 06/17 0830 85 19 96 06/17 0801 91 15 180/79 114 93 06/17 0800 98.7 06/17 0747 93 28 161/94 123 98 06/17 0704 96 Room air 21 06/17 0700 81 16 100 06/17 0615 81 18 161/80 110 94 06/17 0606 95 31 161/77 111 92 06/17 0545 77 16 162/93 122 92 06/17 0530 75 17 162/93 121 92 06/17 0515 75 17 160/86 116 94 06/17 0500 76 18 160/82 113 93 06/17 0445 77 18 118 93 06/17 0415 80 22 148/74 106 92 06/17 0330 79 29 158/78 107 96 06/17 0300 78 19 100 94 06/17 0245 77 26 106 91 06/17 0230 75 23 145/70 100 90 06/17 0215 75 17 136/68 95 89 06/17 0200 74 17 105 90 06/17 0145 75 20 134/81 103 93 06/17 0130 76 20 127/58 83 92 06/17 0115 76 19 148/70 103 90 06/17 0045 76 20 103 92 06/17 0030 76 21 93 95 06/17 0015 77 22 149/61 100 93 06/17 0000 98.9 06/17 0000 77 22 107 92 06/16 2345 79 17 87 94 06/16 2330 84 26 161/85 113 90 06/16 2315 92 32 165/87 117 95 06/16 2300 91 31 161/88 116 97 06/16 2245 90 23 145/67 96 95 06/16 2233 90 43 118 94 06/16 2230 86 19 132 95 06/16 2215 87 30 158/69 99 92 06/16 2200 87 18 162/72 103 95 06/16 2145 95 47 160/72 103 95 06/16 2138 89 26 120 94 06/16 2130 87 17 118 95 06/16 2115 89 21 122 94 06/16 2100 92 25 162/70 101 94 06/16 2045 90 28 155/70 100 94 06/16 2014 89 22 115 98 06/16 2012 99 Venti mask 8.975074 35 06/16 1999 98.6 06/16 1999 84 27 151/73 105 98 06/16 1945 86 20 112 99 06/16 1930 Venti mask 9.753189 35 06/16 1930 87 18 158/81 111 97 06/16 1915 86 22 154/78 107 99 06/16 1900 88 17 153/66 95 98 06/16 1845 87 18 136/57 90 99 06/16 1830 87 19 135/56 86 99 06/16 1800 89 19 155/80 110 100 06/16 1745 89 28 150/76 109 97 06/16 1730 88 23 172/85 121 95 06/16 1715 86 23 173/88 122 97 06/16 1700 84 21 162/84 116 99 06/16 1645 86 25 163/86 118 98 06/16 1644 87 26 165/91 121 98 06/16 1629 93 43 100 06/16 1615 84 22 162/82 115 99 06/16 1600 97.8 06/16 1600 83 23 148/84 110 98 06/16 1545 84 20 150/83 107 97 06/16 1530 85 24 149/73 105 95 06/16 1515 84 22 159/73 105 98 06/16 1500 86 19 165/73 105 95 06/16 1445 87 22 166/79 113 98 06/16 1430 86 20 144/64 92 97 06/16 1415 85 24 144/65 93 99 06/16 1400 84 28 141/57 94 98 06/16 1345 84 23 154/67 97 96 06/16 1330 81 27 149/65 94 97 06/16 1315 80 24 157/70 100 98 06/16 1245 76 20 139/66 95 97 09/04 1230 76 16 147/67 97 98 09/04 1215 78 20 150/67 97 97 09/04 1200 97.8 09/04 1200 79 20 148/68 98 97 09/04 1145 79 22 141/70 97 96 09/04 1130 78 20 148/70 101 97 09/04 1115 83 25 146/67 97 97 09/04 1100 88 40 148/67 96 96 09/04 1030 92 24 169/74 106 95 Microbiology: 09/05 183 NASOPHARG: Influenza Virus Type B Ant igen - COMP 09/05 183 NASOPHARG: Influenza Virus Type A Ant igen - COMP 09/05 075 URINE: Streptococcus pneumoniae Antig en (M - COMP 09/05 075 URINE: Legionella Antigen - COMP 09/04 044 BLOOD: Blood Culture - RES 09/05 447 BLOOD: Blood Culture - RES 09/04 444 BLOOD: Blood Culture - RES 09/04 444 BLOOD: Blood Culture - RES Electronically Signed by Jani Mckoy MD o n 09/06/18 at 1026 [facility][id number] END OF REPORT 2018-09-05 16:56:00-00:00 [id number] [place] [id number] PATIENT NAME: LEIGH FRYE ADMIT DATE: 08/25/18 ACCOUNT NO: [id number] ROOM NO: [facility] AGE: 38 REPORT TYPE: PROGRESS NOTE SEX: F ADMITTING PHYSICIAN:Jani Mckoy MD ATTENDING PHYSICIAN:Jani Mckoy MD DATE: The patient is a 38-year-old female, had resection of pituitary adenoma about 10 days ago and ____ was transferred out of ICU. Begum d transient nasal leak of CSF fluid, which stopped. Inflammatory markers were negative. She has had respiratory failure over the weekend with hypoxi a and hypercarbia. Was transferred to ICU with finding of aspir ation pneumonia of the right lung. The patient is sitting up. There were no complaints. Coughing has subsided. Chest pain is subsiding. ____ lung has crackles and wh eezes. Left lung is fine. Abdomen nontender. No change in ____ state. Fami ly history significant for community acquired, hospital acquired pneumonia with vancomycin and Rocephin. The patient's lab data was reviewed. 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 This was supplemented yesterday and will be restarted today. The patient likely needs lifelong ____ hormone. Her Synthroid level s are also low. Dose was revised. She ambulated with help. The patient is morbidly obese. Minimal sedation is recommended to ____ narcosis and we will BiPAP at night, as she seems to be washed out. We w ill continue on Synthroid replacement, insulin, and cortisol. We will increase her mobility. CT scan for PE was negative fortunately. We cannot use any heparin ____. No anticoagulation till the pituitary ____ surgery has healed somewhat. Over 2 weeks from surgery ____. She has no lymphadenopathy. Dictated By: Jani Mckoy MD WT: PN:GISSELLE/YONATHAN/JERSON Conf#: [id number]/DID#: [id number] Authenticated by Jani Mckoy MD On 06:06:37 AM at 0606 PATIENT NAME: LEIGH FRYE 2018-09-05 13:14:00-00:00 [facility] ([facility]) General Progress Note REPORT#:[id number] REPORT STATUS: Signed DATE:09/05/18 TIME: 1314 PATIENT: LEIGH FRYE UNIT #: [id number] [address] AGE: 38 SEX: F ATTEND: Johana Mckoy MD ADM AUTHOR: Jani Mckoy MD * ALL edits or amendments must be made on the [employer] document * Subjective Comments: Vital Signs Date Time Temp Pulse Resp B/P B/P Pulse O2 O2 Fl ow FiO2 Mean Ox Delivery Rate 09/05 0800 98.7 06/ 0704 96 Room air 21 06/17 0615 81 18 161/80 110 94 06/17 0606 95 31 161/77 111 92 06/17 0545 77 16 162/93 122 92 06/17 0530 75 17 162/93 121 92 06/17 0515 75 17 160/86 116 94 06/17 0500 76 18 160/82 113 93 06/17 0445 77 18 118 93 06/17 0415 80 22 148/74 106 92 06/17 0330 79 29 158/78 107 96 06/17 0300 78 19 100 94 06/17 0245 77 26 106 91 06/17 0230 75 23 145/70 100 90 06/17 0215 75 17 136/68 95 89 06/17 0200 74 17 105 90 06/17 0145 75 20 134/81 103 93 06/17 0130 76 20 127/58 83 92 06/17 0115 76 19 148/70 103 90 06/17 0045 76 20 103 92 06/17 0030 76 21 93 95 06/17 0015 77 22 149/61 100 93 06/17 0000 98.9 06/17 0000 77 22 107 92 06/16 2345 79 17 87 94 06/16 2330 84 26 161/85 113 90 06/16 2315 92 32 165/87 117 95 06/16 2300 91 31 161/88 116 97 06/16 2245 90 23 145/67 96 95 06/16 2233 90 43 118 94 06/16 2230 86 19 132 95 06/16 2215 87 30 158/69 99 92 06/16 2200 87 18 162/72 103 95 06/16 2145 95 47 160/72 103 95 06/16 2138 89 26 120 94 06/16 2130 87 17 118 95 06/16 2115 89 21 122 94 06/16 2100 92 25 162/70 101 94 06/16 2045 90 28 155/70 100 94 0616 2014 89 22 115 98 0616 2012 99 Venti 8.734479 35 mask 09/05 1999 98.6 0616 1999 84 27 151/73 105 98 06/16 1945 86 20 112 99 06/16 1930 Venti 9.931111 35 mask 06/16 1930 87 18 158/81 111 97 06/16 1915 86 22 154/78 107 99 06/16 1900 88 17 153/66 95 98 06/16 1845 87 18 136/57 90 99 06/16 1830 87 19 135/56 86 99 06/16 1800 89 19 155/80 110 100 06/16 1745 89 28 150/76 109 97 06/16 1730 88 23 172/85 121 95 06/16 1715 86 23 173/88 122 97 06/16 1700 84 21 162/84 116 99 06/16 1645 86 25 163/86 118 98 06/16 1644 87 26 165/91 121 98 06/16 1629 93 43 100 06/16 1615 84 22 162/82 115 99 06/16 1600 97.8 06/16 1600 83 23 148/84 110 98 06/16 1545 84 20 150/83 107 97 06/16 1530 85 24 149/73 105 95 06/16 1515 84 22 159/73 105 98 06/16 1500 86 19 165/73 105 95 06/16 1445 87 22 166/79 113 98 06/16 1430 86 20 144/64 92 97 06/16 1415 85 24 144/65 93 99 06/16 1400 84 28 141/57 94 98 06/16 1345 84 23 154/67 97 96 06/16 1330 81 27 149/65 94 97 06/16 1315 80 24 157/70 100 98 06/16 1245 76 20 139/66 95 97 06/16 1230 76 16 147/67 97 98 06/16 1215 78 20 150/67 97 97 06/16 1200 97.8 06/16 1200 79 20 148/68 98 97 06/16 1145 79 22 141/70 97 96 06/16 1130 78 20 148/70 101 97 06/16 1115 83 25 146/67 97 97 06/16 1100 88 40 148/67 96 96 06/16 1030 92 24 169/74 106 95 06/16 1015 91 23 166/72 103 99 06/16 1000 93 29 150/64 92 94 06/16 0945 92 16 150/61 98 97 06/16 0930 94 13 155/70 101 96 06/16 0916 100 Venti 9.703909 35 mask 06/16 0915 86 14 153/70 101 98 06/16 0900 92 27 153/53 102 93 06/16 0845 90 21 94 06/16 0830 87 20 165/78 112 97 06/16 0815 89 30 158/74 107 90 06/16 0800 98.2 06/16 0800 Venti 9.775019 35 mask 09/04 0800 83 32 151/116 131 96 06/16 0732 86 35 157/67 96 100 06/16 0730 85 19 96 06/16 0721 85 20 97 06/16 0706 83 26 94 06/16 0651 84 22 97 06/16 0636 88 17 100 06/16 0621 82 16 95 06/16 0606 80 18 96 /16 0600 97.0 16 0535 77 18 97 /16 0530 Non 12.623651 rebreathe r mask 09/04 0530 77 19 159/75 108 98 /16 0521 76 18 99 /16 0424 97.9 83 20 148/84 105.3 74 Room air 09/03 2339 98.2 73 15 139/82 101.2 94 Room air 09/03 2315 98.1 84 16 138/87 104.4 93 Room air 09/03 1945 98.1 98 16 156/88 110.6 95 Room air 09/03 1525 97.7 82 14 150/80 103.1 92 Room air Laboratory Tests: 09/05 09/05 09/05 09/05 09/04 1220 0813 0450 0450 1633 Chemistry Sodium (137 - 145 MMOL/L) 142 Potassium (3.5 - 5.1 MMOL/L) 3.5 Chloride (98 - 107 MMOL/L) 106 Carbon Dioxide (22 - 30 MMOL/L) 27 BUN (7 - 17 MG/DL) 9 Creatinine (0.52 - 1.04 MG/DL) 0.70 Glomerular Filtr Rate > 60 Glucose (74 - 106 MG/DL) 125 H Calcium (8.4 - 10.2 MG/DL) 8.8 Magnesium (1.6 - 2.3 MG/DL) 1.9 Procalcitonin (NG/ML) < 0.05 Cortisol AM Sample (4.46 - 22.7 ug/dL) 5.71 Cortisol PM Sample (3.09 - 16.66 mcg/dL) 11.10 Hematology WBC (3.8 - 9.8 K/MM3) 5.7 Hgb (11.2 - 14.9 G/DL) 7.5 L Hct (33.2 - 43.5 %) 24.7 L Toxicology Vancomycin Trough (10.0 - 20.0 UG/ML) 20.8 H Random Vancomycin (5.0 - 26.0 mcg/ML) 10.6 Microbiology: Date/Time Procedure - Status Source Growth 09/05 752 Streptococcus pneumoniae Antigen (M - COMP URINE 09/05 752 Legionella Antigen - COMP URINE Home Medications: LISINOPRIL/HCTZ (ZESTORETIC 20/25 MG) 1 TAB PO D AILY ESCITALOPRAM (LEXAPRO) 40 MG PO DAILY ISOSORBIDE MONONITRATE SR (IMDUR) 30 MG PO DAILY FAMOTIDINE (PEPCID) 20 MG PO BID SUMAtriptan (IMITREX) 50 MG PO ONCEPRN ONDANSETRON ODT (ZOFRAN ODT) 4 MG PO BID ATORVASTATIN (LIPITOR) 40 MG PO BEDTIME hydrOXYzine HCL (ATARAX) 50 MG PO DAILY PRN PRN SLEEP KETOROLAC (TORADOL) 10 MG PO Q6H PRN PRN PAIN METOPROLOL TARTRATE (LOPRESSOR) 25 MG PO BID PANTOPRAZOLE DR (PROTONIX) 40 MG PO DAILY SUCRALFATE (CARAFATE) 1 GM PO QID traMADol (ULTRAM) 50 MG PO TID PRN PRN PAIN RIVAROXABAN (XARELTO) 20 MG PO DAILY Microbiology: 09/05 752 URINE: Streptococcus pneumoniae Antig en (M - COMP 09/05 752 URINE: Legionella Antigen - COMP 09/05 447 BLOOD: Blood Culture - RES 09/05 447 BLOOD: Blood Culture - RES 09/04 444 BLOOD: Blood Culture - RES 09/04 444 BLOOD: Blood Culture - RES 09/03 2119 NASAL: MRSA Screen - COMP see dictation Electronically Signed by Jani Mckoy MD 09/05/18 at 1316 RPT #:[id number] END OF REPORT 2018-09-05 12:45:00-00:00 [facility]WU [facility] ([facility]) Neurosurgical Progress Note REPORT#:[id number] REPORT STATUS: Signed DATE:09/05/18 TIME: 1245 PATIENT: MELVALEIGH UNIT #: [id number] ROOM/BED: [address] : 80 AGE: 38 SEX: F ATTEND: Johana Mckoy MD ADM AUTHOR: Tanya Rodriguez NP * ALL edits or amendments must be made on the el [employer]computer document * Subjective Chief Complaint: headaches Objective General VS/I O: Vital Signs Date Temp Pulse Resp B/P B/P Mean Pulse Ox FiO2 09/04-09/05 97.8-98.9 74-95 16-47 127-173/56-93 83-132 89-100 21-35 24 hour I O ending at 0700: 09/05 0700 09/04 1900 Intake Total 500.00 1150.00 Output Total Balance 500.00 1150.00 Intake, IV 200.00 950.00 Intake, Oral 300 200 Number 1 Bowel Movements Number Voids 4 4 Medications: Active Meds + DC'd Last 24 Hrs Acetylcysteine 2 ML ONCE ONE INH Oxycodone HCl 10 MG ONCE ONE PO (DC) Tramadol HCl 100 MG BID PO Oxycodone HCl 10 MG ONCE ONE PO (DC) Tramadol HCl 100 MG ONCE ONE PO (DC) Albuterol/Ipratropium 3 ML RTQ6H INH Miscellaneous Information 1 EACH ASDIR IV (CKD) Vancomycin HCl 2,000 MG Q8H IV (DC) Sodium Chloride 250 ML Cefepime HCl 1,000 MG Q6HR IV Sodium Chloride 10 ML Hydrocortisone 10 MG TID AC PO Ferrous Sulfate 300 MG BID PO Lisinopril 5 MG DAILY PO Desmopressin Acetate 0.2 MG PC DIN PO Fludrocortisone Acetate 0.1 MG BID PO Polyethylene Glycol 17 GM DAILY PO Docusate Sodium 100 MG BID PO Mupirocin 1 APPLIC BID NASAL (DC) Phenol 1 SPRAY Q4H PRN PRN MM Ampicillin Sodium/Sulbactam Sodium 3,000 MG Q6HR IV Sodium Chloride 100 ML Acetaminophen 650 MG Q4H PRN PRN PO [place] Oil/Swedish Balsam/Trypsin 1 XIANG Q12HR T OPICAL (CKD) Clotrimazole 1 XIANG BID TOPICAL (CKD) Pantoprazole 40 MG Q12HR PO Vitamin B Complex/Vitamin C 1 TAB BID PO (CKD) Citalopram Hydrobromide 40 MG DAILY PO Metoprolol Tartrate 25 MG BID PO Sucralfate 1 GM QID PO Physical Exam General appearance: alert, awake, oriented Cardiovascular: normal capillary refill, regular rate rhythm Respiratory: no distress, symmetric expansion Abdomen: non-tender, normal bowel sounds, soft, no distention Neuro/REFERRAL COORDINATOR: alert, oriented X 3, CN II-XII intact, EOMI, PERRL, normal reflexes, normal speech, reflexes equal bilat, no motor de ficits, no sensory deficits Results Findings/Data: Laboratory Tests 09/05 09/05 09/05 09/04 0813 0450 0450 1633 Chemistry Sodium (137 - 145 MMOL/L) 142 Potassium (3.5 - 5.1 MMOL/L) 3.5 Chloride (98 - 107 MMOL/L) 106 Carbon Dioxide (22 - 30 MMOL/L) 27 BUN (7 - 17 MG/DL) 9 Creatinine (0.52 - 1.04 MG/DL) 0.70 Glomerular Filtr Rate > 60 Glucose (74 - 106 MG/DL) 125 H Calcium (8.4 - 10.2 MG/DL) 8.8 Magnesium (1.6 - 2.3 MG/DL) 1.9 Procalcitonin (NG/ML) < 0.05 Cortisol AM Sample (4.46 - 22.7 ug/dL) 5.71 Cortisol PM Sample (3.09 - 16.66 mcg/dL) 11.10 Laboratory Tests 09/05 0813 Hematology WBC (3.8 - 9.8 K/MM3) 5.7 Hgb (11.2 - 14.9 G/DL) 7.5 L Hct (33.2 - 43.5 %) 24.7 L Laboratory Tests 09/05 0450 Toxicology Vancomycin Trough (10.0 - 20.0 UG/ML) 20.8 H Microbiology Date/Time Procedure - Status Source Growth 09/05 752 Streptococcus pneumoniae Antigen (M - COMP URINE 09/05 752 Legionella Antigen - COMP URINE Diagnosis, Assessment Plan Free Text A P: A: 38 year old female now POD#6 from transspheno idal resection of pituitary adenoma P: Okay to restart anticoagulation 7 days post op, which will be tomorrow Continue packing for another 7 days Unasyn for 10 days PT/OT Can transfer out of ICU from a neurosurgical sta ndpoint Electronically Signed by Tanya Rodriguez NP on 08/20 12/08 at 1614 RPT #:[id number] END OF REPORT 2018-09-05 12:45:00-00:00 [facility] ([facility]) Neurosurgical Progress Note REPORT#:[id number] REPORT STATUS: Signed DATE:09/05/18 TIME: 1245 PATIENT: LEIGH FRYE UNIT #: [id number] [facility] AGE: 38 SEX: F ATTEND: Johana Mckoy MD ADM AUTHOR: Tanya Rodriguez NP * ALL edits or amendments must be made on the [employer]/computer document * Tanya Rodriguez VISITOR SERVICES TECHNICIAN 09/05/18 1245: Subjective Chief Complaint: headaches Objective General VS/I O: Vital Signs Date Temp Pulse Resp B/P B/P Mean Pulse Ox FiO2 09/04-09/05 97.8-98.9 74-95 16-47 127-173/56-93 83-132 89-100 21-35 24 hour I O ending at 0700: 09/05 0700 09/04 1900 Intake Total 500.00 1150.00 Output Total Balance 500.00 1150.00 Intake, IV 200.00 950.00 Intake, Oral 300 200 Number 1 Bowel Movements Number Voids 4 4 Medications: Active Meds + DC'd Last 24 Hrs Acetylcysteine 2 ML ONCE ONE INH Oxycodone HCl 10 MG ONCE ONE PO (DC) Tramadol HCl 100 MG BID PO Oxycodone HCl 10 MG ONCE ONE PO (DC) Tramadol HCl 100 MG ONCE ONE PO (DC) Albuterol/Ipratropium 3 ML RTQ6H INH Miscellaneous Information 1 EACH ASDIR IV (CKD) Vancomycin HCl 2,000 MG Q8H IV (DC) Sodium Chloride 250 ML Cefepime HCl 1,000 MG Q6HR IV Sodium Chloride 10 ML Hydrocortisone 10 MG TID AC PO Ferrous Sulfate 300 MG BID PO Lisinopril 5 MG DAILY PO Desmopressin Acetate 0.2 MG PC DIN PO Fludrocortisone Acetate 0.1 MG BID PO Polyethylene Glycol 17 GM DAILY PO Docusate Sodium 100 MG BID PO Mupirocin 1 APPLIC BID NASAL (DC) Phenol 1 SPRAY Q4H PRN PRN MM Ampicillin Sodium/Sulbactam Sodium 3,000 MG Q6HR IV Sodium Chloride 100 ML Acetaminophen 650 MG Q4H PRN PRN PO [place] Oil/Swedish Balsam/Trypsin 1 XIANG Q12HR T OPICAL (CKD) Clotrimazole 1 XIANG BID TOPICAL (CKD) Pantoprazole 40 MG Q12HR PO Vitamin B Complex/Vitamin C 1 TAB BID PO (CKD) Citalopram Hydrobromide 40 MG DAILY PO Metoprolol Tartrate 25 MG BID PO Sucralfate 1 GM QID PO Physical Exam General appearance: alert, awake, oriented Cardiovascular: normal capillary refill, regular rate rhythm Respiratory: no distress, symmetric expansion Abdomen: non-tender, normal bowel sounds, soft, no distention Neuro/REFERRAL COORDINATOR: alert, oriented X 3, CN II-XII intact, EOMI, PERRL, normal reflexes, normal speech, reflexes equal bilat, no motor de ficits, no sensory deficits Results Findings/Data: Laboratory Tests 09/05 09/05 09/05 09/04 0813 0450 0450 1633 Chemistry Sodium (137 - 145 MMOL/L) 142 Potassium (3.5 - 5.1 MMOL/L) 3.5 Chloride (98 - 107 MMOL/L) 106 Carbon Dioxide (22 - 30 MMOL/L) 27 BUN (7 - 17 MG/DL) 9 Creatinine (0.52 - 1.04 MG/DL) 0.70 Glomerular Filtr Rate > 60 Glucose (74 - 106 MG/DL) 125 H Calcium (8.4 - 10.2 MG/DL) 8.8 Magnesium (1.6 - 2.3 MG/DL) 1.9 Procalcitonin (NG/ML) < 0.05 Cortisol AM Sample (4.46 - 22.7 ug/dL) 5.71 Cortisol PM Sample (3.09 - 16.66 mcg/dL) 11.10 Laboratory Tests 09/05 0813 Hematology WBC (3.8 - 9.8 K/MM3) 5.7 Hgb (11.2 - 14.9 G/DL) 7.5 L Hct (33.2 - 43.5 %) 24.7 L Laboratory Tests 09/05 045 Toxicology Vancomycin Trough (10.0 - 20.0 UG/ML) 20.8 H Microbiology Date/Time Procedure - Status Source Growth 09/05 752 Streptococcus pneumoniae Antigen (M - COMP URINE 09/05 752 Legionella Antigen - COMP URINE Diagnosis, Assessment Plan Free Text A P: A: 38 year old female now POD#6 from transspheno idal resection of pituitary adenoma P: Okay to restart anticoagulation 7 days post op, which will be tomorrow Continue packing for another 7 days Unasyn for 10 days PT/OT Can transfer out of ICU from a neurosurgical sta toritoOzzy Curran 09/07/18 2146: Diagnosis, Assessment Plan Additional comments: Agree with above Electronically Signed by Tanya Rodriguez NP on 08/20 12/08 at 1614 RPT #:[id number] END OF REPORT 2018-09-05 12:45:00-00:00 [facility] ([facility]) Neurosurgical Progress Note REPORT#:[id number] REPORT STATUS: Signed DATE:09/05/18 TIME: 1245 PATIENT: LEIGH FRYE UNIT #: [id number] ROOM/BED: [address] : 80 AGE: 38 SEX: F ATTEND: Johana Mckoy MD ADM AUTHOR: Tanya Rodriguez NP * ALL edits or amendments must be made on the BioST[employer]/computer document * Tanya Rodriguez NP 09/05/18 1245: Subjective Chief Complaint: headaches Objective General VS/I O: Vital Signs Date Temp Pulse Resp B/P B/P Mean Pulse Ox FiO2 09/04-09/05 97.8-98.9 74-95 16-47 127-173/56-93 83-132 89-100 21-35 24 hour I O ending at 0700: 09/05 0700 09/04 1900 Intake Total 500.00 1150.00 Output Total Balance 500.00 1150.00 Intake, IV 200.00 950.00 Intake, Oral 300 200 Number 1 Bowel Movements Number Voids 4 4 Medications: Active Meds + DC'd Last 24 Hrs Acetylcysteine 2 ML ONCE ONE INH Oxycodone HCl 10 MG ONCE ONE PO (DC) Tramadol HCl 100 MG BID PO Oxycodone HCl 10 MG ONCE ONE PO (DC) Tramadol HCl 100 MG ONCE ONE PO (DC) Albuterol/Ipratropium 3 ML RTQ6H INH Miscellaneous Information 1 EACH ASDIR IV (CKD) Vancomycin HCl 2,000 MG Q8H IV (DC) Sodium Chloride 250 ML Cefepime HCl 1,000 MG Q6HR IV Sodium Chloride 10 ML Hydrocortisone 10 MG TID AC PO Ferrous Sulfate 300 MG BID PO Lisinopril 5 MG DAILY PO Desmopressin Acetate 0.2 MG PC DIN PO Fludrocortisone Acetate 0.1 MG BID PO Polyethylene Glycol 17 GM DAILY PO Docusate Sodium 100 MG BID PO Mupirocin 1 APPLIC BID NASAL (DC) Phenol 1 SPRAY Q4H PRN PRN MM Ampicillin Sodium/Sulbactam Sodium 3,000 MG Q6HR IV Sodium Chloride 100 ML Acetaminophen 650 MG Q4H PRN PRN PO [place] Oil/Swedish Balsam/Trypsin 1 XIANG Q12HR T OPICAL (CKD) Clotrimazole 1 XIANG BID TOPICAL (CKD) Pantoprazole 40 MG Q12HR PO Vitamin B Complex/Vitamin C 1 TAB BID PO (CKD) Citalopram Hydrobromide 40 MG DAILY PO Metoprolol Tartrate 25 MG BID PO Sucralfate 1 GM QID PO Physical Exam General appearance: alert, awake, oriented Cardiovascular: normal capillary refill, regular rate rhythm Respiratory: no distress, symmetric expansion Abdomen: non-tender, normal bowel sounds, soft, no distention Neuro/REFERRAL COORDINATOR: alert, oriented X 3, CN II-XII intact, EOMI, PERRL, normal reflexes, normal speech, reflexes equal bilat, no motor de ficits, no sensory deficits Results Findings/Data: Laboratory Tests 09/05 09/05 09/05 09/04 0813 0450 0450 1633 Chemistry Sodium (137 - 145 MMOL/L) 142 Potassium (3.5 - 5.1 MMOL/L) 3.5 Chloride (98 - 107 MMOL/L) 106 Carbon Dioxide (22 - 30 MMOL/L) 27 BUN (7 - 17 MG/DL) 9 Creatinine (0.52 - 1.04 MG/DL) 0.70 Glomerular Filtr Rate > 60 Glucose (74 - 106 MG/DL) 125 H Calcium (8.4 - 10.2 MG/DL) 8.8 Magnesium (1.6 - 2.3 MG/DL) 1.9 Procalcitonin (NG/ML) < 0.05 Cortisol AM Sample (4.46 - 22.7 ug/dL) 5.71 Cortisol PM Sample (3.09 - 16.66 mcg/dL) 11.10 Laboratory Tests 09/05 0813 Hematology WBC (3.8 - 9.8 K/MM3) 5.7 Hgb (11.2 - 14.9 G/DL) 7.5 L Hct (33.2 - 43.5 %) 24.7 L Laboratory Tests 09/05 0450 Toxicology Vancomycin Trough (10.0 - 20.0 UG/ML) 20.8 H Microbiology Date/Time Procedure - Status Source Growth 09/05 075 Streptococcus pneumoniae Antigen (M - COMP URINE 09/05 752 Legionella Antigen - COMP URINE Diagnosis, Assessment Plan Free Text A P: A: 38 year old female now POD#6 from transspheno idal resection of pituitary adenoma P: Okay to restart anticoagulation 7 days post op, which will be tomorrow Continue packing for another 7 days Unasyn for 10 days PT/OT Can transfer out of ICU from a neurosurgical sta ndpoint Ozzy Viera 09/07/18 2146: Diagnosis, Assessment Plan Additional comments: Agree with above Electronically Signed by Tanya Rodriguez NP on 08/20 12/08 at 1614 Electronically Signed by Ozzy Viera MD on 08/20 12/08 at 6516 RPT #:[id number] END OF REPORT 2018-09-05 08:42:00-00:00 [facility] ([facility]) Critical Care Progress Note REPORT#:[id number] REPORT STATUS: Signed DATE:09/05/18 TIME: 08 PATIENT: LEIGH FRYE UNIT #: [id number] ROOM/BED: [facility]08-A : 80 AGE: 38 SEX: F ATTEND: Johana Mckoy MD ADM AUTHOR: DOMINGUEZ CORTES NP * ALL edits or amendments must be made on the BioST[employer]/computer document * Subjective Chief Complaint: HCAP Comments: Transferred to ICU yesterday morning for hypoxia, oxygen desaturation found to have R basilar pneumonia. On broad spect rum antibiotics. Off oxygen. Poor pain control, reports chronic generalized sciatic ner ve pain, recommend pain managment physician. PE study negative. Risk for clots due to decreas ed mobility hx PE. Unable to resume xarelto for another 7 days. Review of Systems ROS Constitutional: generalized weakness. Denies: fever. Skin: swelling (lower ext). Respiratory: Denies: SOB. Cardiovascular: Denies: chest pain. Neuro: weakness. Unable to obtain due to: generalized pain, sciatic nerve pain Objective General VS/I O Last Documented: Result Date Time Pulse Ox 96 09/05 0704 FiO2 21 09/05 0704 O2 Delivery Room air 09/05 0704 B/P 161/80 09/05 0615 B/P Mean 110 09/05 0615 Pulse 81 09/05 0615 Resp 18 09/05 0615 Temp 37.2 09/05 0000 O2 Flow Rate 8.318028 09/04 2012 24 hour I O ending at 0700: 09/05 0700 09/04 1900 Intake Total 500.00 1150.00 Output Total Balance 500.00 1150.00 Intake, IV 200.00 950.00 Intake, Oral 300 200 Number 1 Bowel Movements Number Voids 4 4 Medications: Active Meds + DC'd Last 24 Hrs Acetylcysteine 2 ML ONCE ONE INH Tramadol HCl 100 MG BID PO Oxycodone HCl 10 MG ONCE ONE PO (UNV) Oxycodone HCl 10 MG ONCE ONE PO (DC) Tramadol HCl 100 MG ONCE ONE PO (DC) Albuterol/Ipratropium 3 ML RTQ6H INH Miscellaneous Information 1 EACH ASDIR IV (CKD) Vancomycin HCl 2,000 MG Q8H IV (CKD) Sodium Chloride 250 ML Cefepime HCl 1,000 MG Q6HR IV Sodium Chloride 10 ML Hydrocortisone 10 MG TID AC PO Ferrous Sulfate 300 MG BID PO Lisinopril 5 MG DAILY PO Desmopressin Acetate 0.2 MG PC DIN PO Fludrocortisone Acetate 0.1 MG BID PO Polyethylene Glycol 17 GM DAILY PO Docusate Sodium 100 MG BID PO Mupirocin 1 APPLIC BID NASAL (DC) Phenol 1 SPRAY Q4H PRN PRN MM Ampicillin Sodium/Sulbactam Sodium 3,000 MG Q6HR IV Sodium Chloride 100 ML Acetaminophen 650 MG Q4H PRN PRN PO [place] Oil/Swedish Balsam/Trypsin 1 XIANG Q12HR T OPICAL (CKD) Clotrimazole 1 XIANG BID TOPICAL (CKD) Pantoprazole 40 MG Q12HR PO Vitamin B Complex/Vitamin C 1 TAB BID PO (CKD) Citalopram Hydrobromide 40 MG DAILY PO Metoprolol Tartrate 25 MG BID PO Sucralfate 1 GM QID PO Physical Exam General appearance: alert, awake, oriented ENT: nasal packing Neck: no JVD Cardiovascular: normal heart sounds, normal S1 S 2, normal rate and rhythm Respiratory/Chest: decreased breath soun ds (in bases), symmetric expansion, no distress Abdomen: soft, normal bowel sounds, no guarding Extremities: edema, moves all Musculoskeletal: decreased ROM Neuro/REFERRAL COORDINATOR: alert, oriented X 3, no motor deficit s Results Findings/Data: Laboratory Tests 09/05/18812: [Embedded Image Not Available] Laboratory Tests 09/05 0450 0450 1633 Chemistry Sodium (137 - 145 MMOL/L) 142 Potassium (3.5 - 5.1 MMOL/L) 3.5 Chloride (98 - 107 MMOL/L) 106 Carbon Dioxide (22 - 30 MMOL/L) 27 BUN (7 - 17 MG/DL) 9 Creatinine (0.52 - 1.04 MG/DL) 0.70 Glomerular Filtr Rate > 60 Glucose (74 - 106 MG/DL) 125 H Calcium (8.4 - 10.2 MG/DL) 8.8 Magnesium (1.6 - 2.3 MG/DL) 1.9 Procalcitonin (NG/ML) < 0.05 Cortisol AM Sample (4.46 - 22.7 ug/dL) 5.71 Cortisol PM Sample (3.09 - 16.66 mcg/dL) 11.10 Laboratory Tests 09/05 0813 Hematology WBC (3.8 - 9.8 K/MM3) 5.7 Hgb (11.2 - 14.9 G/DL) 7.5 L Hct (33.2 - 43.5 %) 24.7 L Laboratory Tests 09/05 0450 Toxicology Vancomycin Trough (10.0 - 20.0 UG/ML) 20.8 H Microbiology Date/Time Procedure - Status Source Growth 09/05 752 Streptococcus pneumoniae Antigen (M - COMP URINE 09/05 752 Legionella Antigen - COMP URINE Microbiology: 09/05 752 URINE: Streptococcus pneumoniae Antig en (M - COMP 09/05 752 URINE: Legionella Antigen - COMP 09/05 447 BLOOD: Blood Culture - RES 09/05 447 BLOOD: Blood Culture - RES 09/04 444 BLOOD: Blood Culture - RES 09/04 444 BLOOD: Blood Culture - RES 09/03 2119 NASAL: MRSA Screen - COMP Results: labs reviewed, india l signs stable, rhythm peronally rev'd, current med profile rev'd Treatment Prophylaxis Treatment Prophylaxis Oxygen: room air Lines: peripheral Anti-arrhythmics: metoprolol Anti-infectives: cefepime Diagnosis, Assessment Plan Free Text A P: Ms. Frye 38-year-old lady with history of pituitary mass with compression of optic status post trans-sphe noid resection on August 30, 2018, obesity, history of pulmonary embolism about 10 months ago who developed hypoxia and chest tightness and was transfused to the ICU for further manage ment acute respiratory failure with hypoxia/HCAP CTA negative for pulmonary embolus, +R basilar pneumonia Continue Cefepime, dc Vanc. IS. Supplemental ox ygen as needed. Encourage PT. PCT negative. Hemodynamically stable. Afebrile. status post pituitary mass resection with transs phenoidal approach Packing intact for another 7 days. Per neurosx team history of pulmonary embolism Patient will need probably to be on lifelong an ticoagulate She should be started on anticoagulation as mp n as she is cleared by neurosurgery service vascular US negative for DVT 09/04 Stable for transfer out of ICU. CC team will sig n off. f/u 35 mins Orders: Procedure Date/time Status RT: Nebulizer Treatment 09/05 0714 Active WHITE BLOOD CELL 09/05 0712 Complete MAGNESIUM 09/05 0712 Complete HGB HCT 09/05 0712 Complete BASIC METABOLIC PANEL 09/05 07 Complete at 1215 RPT #:[id number] END OF REPORT 2018-09-05 08:42:00-00:00 [facility] ([facility] Critical Care Progress Note REPORT#:[id number] REPORT STATUS: Signed DATE:09/05/18 TIME: 08 PATIENT: LEIGH FRYE UNIT #: [id number] ROOM/BED: ZSI08-A : 80 AGE: 38 SEX: F ATTEND: Johana Mckoy MD ADM AUTHOR: DOMINGUEZ CORTES * ALL edits or amendments must be made on the BioST[employer]/computer document * Prakash Cortes 09/05/18 0842: Subjective Chief Complaint: HCAP Comments: Transferred to ICU yesterday morning for hypoxia, oxygen desaturation found to have R basilar pneumonia. On broad spect rum antibiotics. Off oxygen. Poor pain control, reports chronic generalized sciatic ner ve pain, recommend pain managment physician. PE study negative. Risk for clots due to decreas ed mobility hx PE. Unable to resume xarelto for another 7 days. Review of Systems ROS Constitutional: generalized weakness. Denies: fever. Skin: swelling (lower ext). Respiratory: Denies: SOB. Cardiovascular: Denies: chest pain. Neuro: weakness. Unable to obtain due to: generalized pain, sciatic nerve pain Objective General VS/I O Last Documented: Result Date Time Pulse Ox 96 09/05 0704 FiO2 21 09/05 0704 O2 Delivery Room air 09/05 0704 B/P 161/80 09/05 0615 B/P Mean 110 09/05 0615 Pulse 81 09/05 0615 Resp 18 09/05 0615 Temp 37.2 09/05 0000 O2 Flow Rate 8.581728 09/04 2012 24 hour I O ending at 0700: 09/05 0700 09/04 1900 Intake Total 500.00 1150.00 Output Total Balance 500.00 1150.00 Intake, IV 200.00 950.00 Intake, Oral 300 200 Number 1 Bowel Movements Number Voids 4 4 Medications: Active Meds + DC'd Last 24 Hrs Acetylcysteine 2 ML ONCE ONE INH Tramadol HCl 100 MG BID PO Oxycodone HCl 10 MG ONCE ONE PO (UNV) Oxycodone HCl 10 MG ONCE ONE PO (DC) Tramadol HCl 100 MG ONCE ONE PO (DC) Albuterol/Ipratropium 3 ML RTQ6H INH Miscellaneous Information 1 EACH ASDIR IV (CKD) Vancomycin HCl 2,000 MG Q8H IV (CKD) Sodium Chloride 250 ML Cefepime HCl 1,000 MG Q6HR IV Sodium Chloride 10 ML Hydrocortisone 10 MG TID AC PO Ferrous Sulfate 300 MG BID PO Lisinopril 5 MG DAILY PO Desmopressin Acetate 0.2 MG PC DIN PO Fludrocortisone Acetate 0.1 MG BID PO Polyethylene Glycol 17 GM DAILY PO Docusate Sodium 100 MG BID PO Mupirocin 1 APPLIC BID NASAL (DC) Phenol 1 SPRAY Q4H PRN PRN MM Ampicillin Sodium/Sulbactam Sodium 3,000 MG Q6HR IV Sodium Chloride 100 ML Acetaminophen 650 MG Q4H PRN PRN PO [place] Oil/Swedish Balsam/Trypsin 1 XIANG Q12HR T OPICAL (CKD) Clotrimazole 1 XIANG BID TOPICAL (CKD) Pantoprazole 40 MG Q12HR PO Vitamin B Complex/Vitamin C 1 TAB BID PO (CKD) Citalopram Hydrobromide 40 MG DAILY PO Metoprolol Tartrate 25 MG BID PO Sucralfate 1 GM QID PO Physical Exam General appearance: alert, awake, oriented ENT: nasal packing Neck: no JVD Cardiovascular: normal heart sounds, normal S1 S 2, normal rate and rhythm Respiratory/Chest: decreased breath soun ds (in bases), symmetric expansion, no distress Abdomen: soft, normal bowel sounds, no guarding Extremities: edema, moves all Musculoskeletal: decreased ROM Neuro/REFERRAL COORDINATOR: alert, oriented X 3, no motor deficit s Results Findings/Data: Laboratory Tests 09/05/18 0813: [Embedded Image Not Available] Laboratory Tests 09/05 09/05 09/05 09/04 0813 0450 0450 1633 Chemistry Sodium (137 - 145 MMOL/L) 142 Potassium (3.5 - 5.1 MMOL/L) 3.5 Chloride (98 - 107 MMOL/L) 106 Carbon Dioxide (22 - 30 MMOL/L) 27 BUN (7 - 17 MG/DL) 9 Creatinine (0.52 - 1.04 MG/DL) 0.70 Glomerular Filtr Rate > 60 Glucose (74 - 106 MG/DL) 125 H Calcium (8.4 - 10.2 MG/DL) 8.8 Magnesium (1.6 - 2.3 MG/DL) 1.9 Procalcitonin (NG/ML) < 0.05 Cortisol AM Sample (4.46 - 22.7 ug/dL) 5.71 Cortisol PM Sample (3.09 - 16.66 mcg/dL) 11.10 Laboratory Tests 09/05 0813 Hematology WBC (3.8 - 9.8 K/MM3) 5.7 Hgb (11.2 - 14.9 G/DL) 7.5 L Hct (33.2 - 43.5 %) 24.7 L Laboratory Tests 09/05 045 Toxicology Vancomycin Trough (10.0 - 20.0 UG/ML) 20.8 H Microbiology Date/Time Procedure - Status Source Growth 09/05 752 Streptococcus pneumoniae Antigen (M - COMP URINE 09/05 752 Legionella Antigen - COMP URINE Microbiology: 09/05 752 URINE: Streptococcus pneumoniae Antig en (M - COMP 09/05 752 URINE: Legionella Antigen - COMP 09/05 447 BLOOD: Blood Culture - RES 09/05 447 BLOOD: Blood Culture - RES 09/04 444 BLOOD: Blood Culture - RES 09/04 444 BLOOD: Blood Culture - RES 09/03 2119 NASAL: MRSA Screen - COMP Results: labs reviewed, india l signs stable, rhythm peronally rev'd, current med profile rev'd Treatment Prophylaxis Treatment Prophylaxis Oxygen: room air Lines: peripheral Anti-arrhythmics: metoprolol Anti-infectives: cefepime Diagnosis, Assessment Plan Free Text A P: Ms. Frye 38-year-old lady with history of pituitary mass with compression of optic status post trans-sphe noid resection on August 30, 2018, obesity, history of pulmonary embolism about 10 months ago who developed hypoxia and chest tightness and was transfused to the ICU for further manage ment acute respiratory failure with hypoxia/HCAP CTA negative for pulmonary embolus, +R basilar pneumonia Continue Cefepime, dc Vanc. IS. Supplemental ox ygen as needed. Encourage PT. PCT negative. Hemodynamically stable. Afebrile. status post pituitary mass resection with transs phenoidal approach Packing intact for another 7 days. Per neurosx team history of pulmonary embolism Patient will need probably to be on lifelong an ticoagulate She should be started on anticoagulation as mp n as she is cleared by neurosurgery service vascular US negative for DVT 09/04 Stable for transfer out of ICU. CC team will sig n off. f/u 35 mins Orders: Procedure Date/time Status RT: Nebulizer Treatment 09/05 713 Active WHITE BLOOD CELL 09/06 711 Complete MAGNESIUM 09/06 711 Complete HGB HCT 09/06 711 Complete BASIC METABOLIC PANEL 09/06 711 Complete Sher Vyas 09/05/18 1814: Diagnosis, Assessment Plan Additional comments: The patient was evaluated this morning during mo rning rounds. The patient was found sitting the chair. She denies any shortness of breath. The bedside nurse did not report any oxygen desaturation. The case was discussed with the neurosurgical nurse practitioner and the primary attending who both agree that the patient to be transferred to the floor. The patient remains hemodynamically stab le without any respiratory compromise. I recommend restarting the patient anticoagulant . The critical care service will sign off at this time Attestations Attestation needed: supervising physician Midlevel/Physician Attestation Physician attestation: Agree with the findings and plan as documented b y Ms janie ARTIS at 1215 at 1815 RPT #:[id number] END OF REPORT 2018-09-04 13:30:00-00:00 [facility] ([facility]) Neurosurgical Progress Note REPORT#:[id number] REPORT STATUS: Signed DATE:09/04/18 TIME: 1330 PATIENT: LEIGH FRYE UNIT #: [id number] ROOM/BED: [address] : 80 AGE: 38 SEX: F ATTEND: Johana Mckoy MD ADM AUTHOR: Ozzy Viera MD * ALL edits or amendments must be made on the [employer]/computer document * Subjective Chief Complaint: She notes headaches. She was [facility] to [facility] for hypoxia. Here in ICU, Dr. Deutsch concerned about PE. He called me at 5 am to ask if it was alright to start theurapeutic anticoagu lation. I discussed with him that it would not be ok to start anticoagulation before 7 days post-op. CT PE showed no PE. Objective General VS/I O: Vital Signs Date Temp Pulse Resp B/P B/P Mean Pulse Ox FiO2 09/03-09/04 97.0-98.2 73-98 14-26 138-159/75-88 101.2-110.6 74-100 35 24 hour I O ending at 0700: 09/04 0700 09/03 1900 Intake Total 1900.00 Output Total 2800 Balance -900.00 Intake, IV 100.00 Intake, Oral 1800 Number 1 Bowel Movements Number Voids 2 Output, Urine 2800 Physical Exam Head/Eyes: atraumatic, EOMI, PERRLA, photophobia right eye ENT: normal nose, moist mucosal membranes Neck: full range of motion, non-tender Cardiovascular: normal capillary refill, regular rate rhythm Respiratory: no distress, symmetric expansion Abdomen: non-tender, normal bowel sounds, soft, no distention Genitourinary: deferred Musculoskeletal: normal inspection Neuro/REFERRAL COORDINATOR: alert, oriented X 3, CN II-XII intact, EOMI, PERRL, normal reflexes, normal speech, reflexes equal bilat, no motor de ficits, no sensory deficits Skin: dry, intact, no abscess Lymphatics: inguinal normal, no lymphadenopathy Psychiatry: no hallucinations, normal affect Results Findings/Data: Laboratory Tests 09/04 0444 Blood Gas Puncture Site L Brachial O2 Saturation (92.0 - 98.5 %) 97 ABG pH (7.35 - 7.45) 7.392 ABG pCO2 (35.0 - 45.0 mmHg) 46.8 H ABG pO2 (75.0 - 100.0) 95 ABG HCO3 (20.0 - 26.0 MMOL/L) 28.4 *H ABG Base Excess (-3.0 - 3.0 MMOL/L) 4.0 H Navin Test (CHECK) N/A O2 Delivery Device NonRb Mask FiO2 (21 - 100 %) 100 Laboratory Tests 09/04 09/04 09/04 09/04 09/04 0821 0821 0821 0448 0448 Chemistry Lactic Acid (0.7 - 2.1 MMOL/L) 0.9 1.2 Troponin I (0.012 - 0.033 NG/ML) < 0.012 L B-Natriuretic Peptide (0 - 100 151.0 H PG/ML) Procalcitonin (NG/ML) < 0.05 09/045 0445 0445 0430 Chemistry Sodium (137 - 145 MMOL/L) 140 Potassium (3.5 - 5.1 MMOL/L) 4.1 Chloride (98 - 107 MMOL/L) 105 Carbon Dioxide (22 - 30 MMOL/L) 30 Anion Gap (14 - 24 MMOL/L) 9 L BUN (7 - 17 MG/DL) 14 Creatinine (0.52 - 1.04 MG/DL) 0.60 Glomerular Filtr Rate > 60 Glucose (74 - 106 MG/DL) 121 H POC Glucose (60 - 99 MG/DL) 99 Calcium (8.4 - 10.2 MG/DL) 9.0 Magnesium (1.6 - 2.3 MG/DL) 2.0 Total Bilirubin (0.2 - 1.3 MG/DL) 0.1 L Direct Bilirubin (0.0 - 0.3 MG/DL) 0.0 AST (14 - 36 UNITS/L) 33 ALT (9 - 52 UNITS/L) 34 Total Alk Phosphatase (38 - 126 UNITS/L) 114 Troponin I (0.012 - 0.033 NG/ML) < 0.012 L Total Protein (6.3 - 8.2 G/DL) 6.4 Albumin (3.5 - 5.0 G/DL) 3.0 L Procalcitonin (NG/ML) < 0.05 Cortisol AM Sample (4.46 - 22.7 ug/dL) 3.62 L Laboratory Tests 09/05 447 Coagulation INR (0.8 - 1.1) 1.0 APTT (22.0 - 33.0 SECONDS) 27.5 PT Patient/Control Mix (9.6 - 11.6 SECONDS) 10 .3 Laboratory Tests 09/05 447 Hematology WBC (3.8 - 9.8 K/MM3) 6.8 RBC (3.58 - 4.97 M/MM3) 3.51 L Hgb (11.2 - 14.9 G/DL) 8.0 L Hct (33.2 - 43.5 %) 26.9 L MCV (80.7 - 99.1 fL) 77 L MCH (27.0 - 34.1 pg) 22.8 L MCHC (32.2 - 35.7 %) 29.7 L RDW (12.1 - 15.2 %) 21.2 H Plt Count (129 - 368 K/MM3) 235 MPV (7.4 - 10.4 fl) 9.4 Neut % (Auto) (43 - 75 %) 65.8 Lymph % (Auto) (14 - 44 %) 27.2 Merrick % (Auto) (4 - 13 %) 4.0 Eos % (Auto) (0 - 6 %) 2.5 Baso % (Auto) (0 - 2 %) 0.1 Neut # (Auto) (2.0 - 7.6 K/mm3) 4.46 Lymph # (Auto) (1.0 - 3.8 K/mm3) 1.85 Merrick # (Auto) (0.1 - 0.8 K/mm3) 0.27 Eos # (Auto) (0.0 - 0.2 K/mm3) 0.17 Baso # (Auto) (0.0 - 0.2 K/mm3) 0.01 Immature Gran % (0.0 - 2.0 %) 0.4 Nucleated RBC % (0 - 1.0 %) 0.0 Nucleated RBCs # (Man) (0.0 - 0.1 K/mm3) 0.00 Platelet Estimate (ADEQUATE) ADEQUATE Plt Morphology Comment (NORMAL) NORMAL Anisocytosis (NONE) MODERATE Microcytosis (NONE) FEW Ovalocytes (NONE) FEW Radiology data: Recent Impressions: RADIOLOGY - XR CHEST 1V 09/04 0441 Report Impression - Status: SIGNED Entered: 09/04/2018 0502 IMPRESSION: 1. Patchy consolidation at the right lung base c oncerning for pneumonia is seen. Impression By: [email or web address] - Cabrera Ngo MD CAT SCAN - CTA CHEST FOR PE 09/04 0530 Report Impression - Status: SIGNED Entered: 09/04/2018 0838 IMPRESSION: 1. No obvious pulmonary embolism. 2. No aortic aneurysm or dissection. 3. Patchy right upper lobe and right middle lobe alveolar interstitial pneumonia. 4. Milder interstitial opacities in both lower l obes and left upper lobe could reflect additional interstitial pneum onia versus superimposed edema. 5. 2.5 cm low-density nodule right thyroid, poss ibly originating from the thyroid gland or parathyroid. Please see ult rasound of neck performed 08/28/2018. Impression By: Jordan Boyer MD Diagnosis, Assessment Plan Free Text A P: A: 38 year old female now POD#5 from transspheno idal resection of pituitary adenoma P: Cont treatment for suspected PNA No therapeutic anticoagulation needed at this ti me. Pain medication as needed Unasyn for 10 days Electronically Signed by Ozzy Viera MD on 08/20 09/07 at 1333 [facility][id number] END OF REPORT 2018-09-04 12:24:00-00:00 [id number] [facility] [id number] [place] [address] PATIENT NAME: LEIGH FRYE ADMIT DATE: 08/25/18 ACCOUNT NO: [id number] ROOM NO: [id number].[id number] AGE: 38 REPORT TYPE: eVENOUS ULTRASOUND SEX: F ADMITTING PHYSICIAN:Jani Mckoy MD ATTENDING PHYSICIAN:Jani Mckoy MD *[facility]* [address] [place] [address] Lower Extremity Venous Duplex Evaluation Patient: Leigh Frye Study Date: 09/04/2018 BP: 165 / 78 Location: [facility] URN: [id number] : 1980 Age: 38 Height: 73 in / 185.4 cm Gender: F Weight: 411 lb / 186.8 kg BMI/BSA: 54.3 kg/m 2 / 3.2 m 2 *Ordering Physician: * Bear Wells *Interpreting Physician: * Hunter Acevedo MD *Community Development Coordinator: * Annetta Brennan, RVT Indications: Swelling of limb. Pain. Study data: Lower extremity venous duplex evalua tion. Bilateral evaluation with grayscale 2D imaging, color Dopp ler imaging, and spectral Doppler analysis. Location: [facility] status: Inpatient. Patient room number: 8. Procedure: A vascular ev aluation was performed. Images were obtained using a [employer] ultrasound machine. Image quality was suboptimal. The study was tech nically limited due to obesity. Study status: Routine. Venous flow and imaging: + + + *Location *Properties * + + + *R CFV *Phasic; spontaneous; normal augmentation ; compressible * PATIENT NAME: LEIGH FRYE + + + *R GSV *Compressible * + + + *R DFV *Phasic; spontaneous * + + + *R FV *Phasic; spontaneous; normal augmentation; compressible; * * *NOT WELL VISUALIZED IN THE DISTAL SEGMENT. * + + + *R popliteal*Phasic; spontaneous; normal augment ation; compressible * + + + *R peroneal *NOT WELL VISUALIZED * + + + *R PTV *NOT WELL VISUALIZED * + + + *L CFV *Phasic; spontaneous; normal augmentation ; compressible * + + + *L GSV *Compressible * + + + *L DFV *Phasic; spontaneous * + + + *L FV *Phasic; spontaneous; normal augmentation; compressible; * * *NOT WELL VISUALIZED IN THE DISTAL SEGMENT. * + + + *L popliteal*Phasic; spontaneous; normal augment ation; compressible * + + + *L peroneal *NOT WELL VISUALIZED * + + + *L PTV *NOT WELL VISUALIZED * + + + Conclusions 1. There is no evidence of deep or superficial v enous thrombosis noted in the right lower extremity and left lower ext remity of the visualized segments. (see note above). 2. Procedure narrative: A vascular evaluation wa s performed. Images were obtained using a [employer] vascular ultrasound machine . Image quality was suboptimal. The study was technically limited d ue to obesity. Prepared and electronically signed by Hunter Acevedo MD 09/04/2018 12:23 at 1224 PATIENT NAME: LEIGH FRYE 2018-09-04 11:18:00-00:00 [facility]) Internal Medicine Prog. Note REPORT#:[id number] REPORT STATUS: Signed DATE:09/04/18 TIME: 1118 PATIENT: LEIGH FRYE UNIT #: [id number] [address] AGE: 38 SEX: F ATTEND: Johana Mckoy MD ADM AUTHOR: Robert Rothman MD * ALL edits or amendments must be made on the el [employer]/computer document * Subjective Comments: Transfered to ICU due to hypoxia. Review of Systems Additional notes: complaining of general body pain. constipation Objective General VS/I O: Vital Signs Date Temp Pulse Resp B/P B/P Mean Pulse Ox FiO2 09/03-09/04 97.0-98.8 73-98 14-26 118-159/75-88 93.3-110.6 74-100 35 Last Documented: Result Date Time Pulse Ox 100 09/04 0916 FiO2 35 09/04 0916 O2 Delivery Venti mask 09/04 09 O2 Flow Rate 9.550127 09/04 0916 Pulse 85 09/04 0730 Resp 19 09/04 0730 Temp 97.0 09/04 0600 B/P 159/75 09/04 0530 B/P Mean 108 09/04 0530 24 hour I O ending at 0700: 09/04 0700 09/03 1900 Intake Total 1900.00 Output Total 2800 Balance -900.00 Intake, IV 100.00 Intake, Oral 1800 Number 1 Bowel Movements Number Voids 2 Output, Urine 2800 Medications: Active Meds + DC'd Last 24 Hrs Albuterol/Ipratropium 3 ML RTQ6H INH Miscellaneous Information 1 EACH ASDIR IV (CKD) Vancomycin HCl 2,000 MG Q12H IV (DC) Sodium Chloride 250 ML Vancomycin HCl 2,000 MG Q8H IV (CKD) Sodium Chloride 250 ML Vancomycin HCl 1,250 MG Q12H IV (DC) Sodium Chloride 250 ML Iopamidol 100 ML .STK-MED ONE IV (DC) Azithromycin 500 MG Q24H IV (DC) Sodium Chloride 250 ML Cefepime HCl 1,000 MG Q6HR IV Sodium Chloride 10 ML Enoxaparin Sodium 186.88 MG Q12HR SUBQ (DC) Hydrocortisone 10 MG TID AC PO Ferrous Sulfate 300 MG BID PO Lisinopril 5 MG DAILY PO Desmopressin Acetate 0.2 MG PC DIN PO Fludrocortisone Acetate 0.1 MG BID PO Polyethylene Glycol 17 GM DAILY PO Trazodone HCl 50 MG BEDTIME PRN PRN PO (DC) Docusate Sodium 100 MG BID PO Mupirocin 1 APPLIC BID NASAL Hydrocodone Bitart/Acetaminophen 1 TAB Q4H PRN P RN PO (DC) Hydrocodone Bitart/Acetaminophen 2 TAB Q4H PRN P RN PO (DC) Phenol 1 SPRAY Q4H PRN PRN MM Ampicillin Sodium/Sulbactam Sodium 3,000 MG Q6HR IV Sodium Chloride 100 ML Acetaminophen 650 MG Q4H PRN PRN PO Morphine Sulfate 4 MG Q4H PRN PRN IV (DC) Ondansetron HCl 4 MG Q4H PRN PRN IV (DC) [place] Oil/Swedish Balsam/Trypsin 1 XIANG Q12HR T OPICAL (CKD) Clotrimazole 1 XIANG BID TOPICAL (CKD) Pantoprazole 40 MG Q12HR PO Vitamin B Complex/Vitamin C 1 TAB BID PO (CKD) Zolpidem Tartrate 5 MG BEDTIME PRN PRN PO (DC) Tramadol HCl 100 MG TID PRN PRN PO (DC) Citalopram Hydrobromide 40 MG DAILY PO Metoprolol Tartrate 25 MG BID PO Sucralfate 1 GM QID PO Physical Exam General appearance: chronically ill appearing, l ethargic, obese Head/Eyes: atraumatic, normocephalic ENT: normal nose, normal pharynx, normal sinus Neck: no bruit/NL carotids, no JVD, no lymphaden opathy Cardiovascular: regular rate rhythm, no murmur Respiratory: decreased breath sounds Abdomen: non-tender, normal bowel sounds, soft, no mass/organomegaly Extremities: Extremities: no clubbing, no cyanosis, no edema Musculoskeletal: decreased ROM Neuro/REFERRAL COORDINATOR: disoriented Skin: no rash Lymphatics: no lymphadenopathy Results Findings/Data: Laboratory Tests 09/04/18 0448: [Embedded Image Not Available] 09/04/18 0445: [Embedded Image Not Available] Laboratory Tests 09/05 443 Blood Gas Puncture Site L Brachial O2 Saturation (92.0 - 98.5 %) 97 ABG pH (7.35 - 7.45) 7.392 ABG pCO2 (35.0 - 45.0 mmHg) 46.8 H ABG pO2 (75.0 - 100.0) 95 ABG HCO3 (20.0 - 26.0 MMOL/L) 28.4 *H ABG Base Excess (-3.0 - 3.0 MMOL/L) 4.0 H Navin Test (CHECK) N/A O2 Delivery Device NonRb Mask FiO2 (21 - 100 %) 100 Laboratory Tests 09/04 09/04 09/04 09/04 09/04 0821 0821 0821 0448 0448 Chemistry Lactic Acid (0.7 - 2.1 MMOL/L) 0.9 1.2 Troponin I (0.012 - 0.033 NG/ML) < 0.012 L B-Natriuretic Peptide (0 - 100 151.0 H PG/ML) Procalcitonin (NG/ML) < 0.05 09/04 0445 0445 0430 Chemistry Sodium (137 - 145 MMOL/L) 140 Potassium (3.5 - 5.1 MMOL/L) 4.1 Chloride (98 - 107 MMOL/L) 105 Carbon Dioxide (22 - 30 MMOL/L) 30 Anion Gap (14 - 24 MMOL/L) 9 L BUN (7 - 17 MG/DL) 14 Creatinine (0.52 - 1.04 MG/DL) 0.60 Glomerular Filtr Rate > 60 Glucose (74 - 106 MG/DL) 121 H POC Glucose (60 - 99 MG/DL) 99 Calcium (8.4 - 10.2 MG/DL) 9.0 Magnesium (1.6 - 2.3 MG/DL) 2.0 Total Bilirubin (0.2 - 1.3 MG/DL) 0.1 L Direct Bilirubin (0.0 - 0.3 MG/DL) 0.0 AST (14 - 36 UNITS/L) 33 ALT (9 - 52 UNITS/L) 34 Total Alk Phosphatase (38 - 126 UNITS/L) 114 Troponin I (0.012 - 0.033 NG/ML) < 0.012 L Total Protein (6.3 - 8.2 G/DL) 6.4 Albumin (3.5 - 5.0 G/DL) 3.0 L Procalcitonin (NG/ML) < 0.05 Cortisol AM Sample (4.46 - 22.7 ug/dL) 3.62 L Laboratory Tests 09/05 447 Coagulation INR (0.8 - 1.1) 1.0 APTT (22.0 - 33.0 SECONDS) 27.5 PT Patient/Control Mix (9.6 - 11.6 SECONDS) 10. 3 Laboratory Tests 09/05 447 Hematology WBC (3.8 - 9.8 K/MM3) 6.8 RBC (3.58 - 4.97 M/MM3) 3.51 L Hgb (11.2 - 14.9 G/DL) 8.0 L Hct (33.2 - 43.5 %) 26.9 L MCV (80.7 - 99.1 fL) 77 L MCH (27.0 - 34.1 pg) 22.8 L MCHC (32.2 - 35.7 %) 29.7 L RDW (12.1 - 15.2 %) 21.2 H Plt Count (129 - 368 K/MM3) 235 MPV (7.4 - 10.4 fl) 9.4 Neut % (Auto) (43 - 75 %) 65.8 Lymph % (Auto) (14 - 44 %) 27.2 Merrick % (Auto) (4 - 13 %) 4.0 Eos % (Auto) (0 - 6 %) 2.5 Baso % (Auto) (0 - 2 %) 0.1 Neut # (Auto) (2.0 - 7.6 K/mm3) 4.46 Lymph # (Auto) (1.0 - 3.8 K/mm3) 1.85 Merrick # (Auto) (0.1 - 0.8 K/mm3) 0.27 Eos # (Auto) (0.0 - 0.2 K/mm3) 0.17 Baso # (Auto) (0.0 - 0.2 K/mm3) 0.01 Immature Gran % (0.0 - 2.0 %) 0.4 Nucleated RBC % (0 - 1.0 %) 0.0 Nucleated RBCs # (Man) (0.0 - 0.1 K/mm3) 0.00 Platelet Estimate (ADEQUATE) ADEQUATE Plt Morphology Comment (NORMAL) NORMAL Anisocytosis (NONE) MODERATE Microcytosis (NONE) FEW Ovalocytes (NONE) FEW Radiology data: Recent Impressions: RADIOLOGY - XR CHEST 1V 09/04 0441 Report Impression - Status: SIGNED Entered: 09/04/2018 0502 IMPRESSION: 1. Patchy consolidation at the right lung base c oncerning for pneumonia is seen. Impression By: [email or web address] - Cabrera Ngo MD CAT SCAN - CTA CHEST FOR PE 09/04 2800 Report Impression - Status: SIGNED Entered: 09/04/2018 2758 IMPRESSION: 1. No obvious pulmonary embolism. 2. No aortic aneurysm or dissection. 3. Patchy right upper lobe and right middle lobe alveolar interstitial pneumonia. 4. Milder interstitial opacities in both lower l obes and left upper lobe could reflect additional interstitial pneum onia versus superimposed edema. 5. 2.5 cm low-density nodule right thyroid, poss ibly originating from the thyroid gland or parathyroid. Please see ult rasound of neck performed 08/28/2018. Impression By: Jordan Boyer MD Diagnosis, Assessment Plan Free Text A P: ASSESSMENT 1. Respiratory failure due to pneumonia. 2. Patchy right upper lobe and right middle lobe alveolar interstitial pneumonia. 3. Pituitary adenoma: s/p transsphenoidal resect ion. 4. HTN. 5. Microcytic anemia with iron deficiency. 6. Morbid obesity. PLAN Broad spectrum antibiotics. Nebulizer treatment. PT/OT FeSO4 Continue current treatment Electronically Signed by Robert Rothman MD on at 0900 RPT #:[id number] END OF REPORT 2018-09-04 05:37:00-00:00 [facility] ([facility]) Critical Care Progress Note REPORT#:[id number] REPORT STATUS: Signed DATE:09/04/18 TIME: 05 PATIENT: LEIGH FRYE UNIT #: [id number] ROOM[address]BED: [address] : 80 AGE: 38 SEX: F ATTEND: Johana Mckoy MD ADM AUTHOR: Bear Wells MD * ALL edits or amendments must be made on the el [employer]/computer document * Subjective Comments: Ms. Frye is a 38-year-old lady with hi story of, pulmonary embolism, obesity, pituitary mass with compress ion on the optic she has status post trans-sphenoid resection of pituitary mass on August 30 2018 Patient did fairly well afte r the surgery and subsequently was transferred from the ICU to the medical floor, she was ab le to walk just fine yesterday but she felt more swelling and pain in the lower extremi ties and she felt " hot" yesterday September 03, 2018 This morning: Patient's nurs e was checking up on her and found her with hypoxia, her oxygen saturation was in mid 70s on room air (was in mid 90s on room air earlier) Along with that patient comp lained of some chest tightness, and she continues to feel swelling and discomfort in her lower extrem mariela Patient reported that she begum d a family history of venous clotting, and that she used to be on Xarelto prior to her pituitary mas s surgery, in the hospital patient is not on chemical DVT prophylaxis (bein g post neurosurgery with high risk of bleeding at the surgical site) Patient was transferred to the ICU immediately, CT scan with PE protocol was ordered, patient was put on Ventimask with her o xygen improving up to 100% on FiO2 50%, she denies any fev er today or cough or sputum production, her bedside chest x-ray showed infiltration in the right bas e concerning for pneumonia Review of Systems ROS Constitutional: generalized weakness. Denies: chills, fever. Skin: swelling (lower ext). Eyes: Denies: visual loss/blurred. ENT: Denies: sinus problem, sore throat. Respiratory: Reports: PEREYRA (dyspnea on exertion). Denies: SOB. Cardiovascular: Reports: chest pain (chest tightness: resolved n ow). GI: Denies: abdominal pain, nausea, vomiting. Musculoskeletal: extremity swelling (B/L lower wxt). Heme: Denies: bleeding. Neuro: weakness. Objective General VS/I O Last Documented: Result Date Time Pulse Ox 74 09/05 423 B/P 148/84 09/04 0424 B/P Mean 105.3 09/04 0424 O2 Delivery Room air 09/05 423 Temp 36.6 09/04 0424 Pulse 83 09/04 0424 Resp 20 09/04 0424 O2 Flow Rate 10.191281 08/30 1615 24 hour I O ending at 0700: 09/04 0700 09/03 1900 Intake Total 1900.00 Output Total 2800 Balance -900.00 Intake, IV 100.00 Intake, Oral 1800 Number 1 Bowel Movements Number Voids 2 Output, Urine 2800 Medications: Active Meds + DC'd Last 24 Hrs Cefepime HCl 1,000 MG Q6HR IV (UNV) Sodium Chloride 10 ML Azithromycin 500 MG Q24H IV (UNV) Sodium Chloride 250 ML Miscellaneous Information 1 EACH ASDIR IV (UNV) Vancomycin HCl 1,250 MG Q12H IV (UNV) Sodium Chloride 250 ML Enoxaparin Sodium 186.88 MG Q12HR SUBQ (DC) Hydrocortisone 10 MG TID AC PO Ferrous Sulfate 300 MG BID PO Lisinopril 5 MG DAILY PO Desmopressin Acetate 0.2 MG PC DIN PO Fludrocortisone Acetate 0.1 MG BID PO Polyethylene Glycol 17 GM DAILY PO Trazodone HCl 50 MG BEDTIME PRN PRN PO Docusate Sodium 100 MG BID PO Mupirocin 1 APPLIC BID NASAL Hydrocodone Bitart/Acetaminophen 1 TAB Q4H PRN P RN PO Hydrocodone Bitart/Acetaminophen 2 TAB Q4H PRN P RN PO Phenol 1 SPRAY Q4H PRN PRN MM Ampicillin Sodium/Sulbactam Sodium 3,000 MG Q6HR IV Sodium Chloride 100 ML Acetaminophen 650 MG Q4H PRN PRN PO Morphine Sulfate 4 MG Q4H PRN PRN IV Ondansetron HCl 4 MG Q4H PRN PRN IV [place] Oil/Swedish Balsam/Trypsin 1 XIANG Q12HR T OPICAL (CKD) Clotrimazole 1 XIANG BID TOPICAL (CKD) Pantoprazole 40 MG Q12HR PO Vitamin B Complex/Vitamin C 1 TAB BID PO (CKD) Zolpidem Tartrate 5 MG BEDTIME PRN PRN PO Tramadol HCl 100 MG TID PRN PRN PO Citalopram Hydrobromide 40 MG DAILY PO Metoprolol Tartrate 25 MG BID PO Sucralfate 1 GM QID PO Nutrition status: oral intake Physical Exam General appearance: agitated (awake, not in dist ress) ENT: nasal packing Neck: no JVD Cardiovascular: normal heart sounds, normal S1 S 2 Respiratory/Chest: decreased breath sounds (in b ases), no distress Abdomen: soft, no guarding Genitourinary: rubin, urine Extremities: edema, moves all Musculoskeletal: decreased ROM Neuro/REFERRAL COORDINATOR: alert, oriented X 3, no motor deficit s Results Findings/Data: Laboratory Tests 09/04/18 0448: [Embedded Image Not Available] 09/04/185: [Embedded Image Not Available] Laboratory Tests 09/05 443 Blood Gas Puncture Site L Brachial O2 Saturation (92.0 - 98.5 %) 97 ABG pH (7.35 - 7.45) 7.392 ABG pCO2 (35.0 - 45.0 mmHg) 46.8 H ABG pO2 (75.0 - 100.0) 95 ABG HCO3 (20.0 - 26.0 MMOL/L) 28.4 *H ABG Base Excess (-3.0 - 3.0 MMOL/L) 4.0 H Navin Test (CHECK) N/A O2 Delivery Device NonRb Mask FiO2 (21 - 100 %) 100 Laboratory Tests 09/04 0445 Chemistry Sodium (137 - 145 MMOL/L) 140 Potassium (3.5 - 5.1 MMOL/L) 4.1 Chloride (98 - 107 MMOL/L) 105 Carbon Dioxide (22 - 30 MMOL/L) 30 Anion Gap (14 - 24 MMOL/L) 9 L BUN (7 - 17 MG/DL) 14 Creatinine (0.52 - 1.04 MG/DL) 0.60 Glomerular Filtr Rate > 60 Glucose (74 - 106 MG/DL) 121 H Lactic Acid (0.7 - 2.1 MMOL/L) 1.2 Calcium (8.4 - 10.2 MG/DL) 9.0 Magnesium (1.6 - 2.3 MG/DL) 2.0 Total Bilirubin (0.2 - 1.3 MG/DL) 0.1 L Direct Bilirubin (0.0 - 0.3 MG/DL) 0.0 AST (14 - 36 UNITS/L) 33 ALT (9 - 52 UNITS/L) 34 Total Alk Phosphatase (38 - 126 UNITS/L) 114 Troponin I (0.012 - 0.033 NG/ML) < 0.012 L Total Protein (6.3 - 8.2 G/DL) 6.4 Albumin (3.5 - 5.0 G/DL) 3.0 L Laboratory Tests 09/05 447 Coagulation INR (0.8 - 1.1) 1.0 APTT (22.0 - 33.0 SECONDS) 27.5 PT Patient/Control Mix (9.6 - 11.6 SECONDS) 10. 3 Laboratory Tests 09/05 447 Hematology WBC (3.8 - 9.8 K/MM3) 6.8 RBC (3.58 - 4.97 M/MM3) 3.51 L Hgb (11.2 - 14.9 G/DL) 8.0 L Hct (33.2 - 43.5 %) 26.9 L MCV (80.7 - 99.1 fL) 77 L MCH (27.0 - 34.1 pg) 22.8 L MCHC (32.2 - 35.7 %) 29.7 L RDW (12.1 - 15.2 %) 21.2 H Plt Count (129 - 368 K/MM3) 235 MPV (7.4 - 10.4 fl) 9.4 Neut % (Auto) (43 - 75 %) 65.8 Lymph % (Auto) (14 - 44 %) 27.2 [place] % (Auto) (4 - 13 %) 4.0 Eos % (Auto) (0 - 6 %) 2.5 Baso % (Auto) (0 - 2 %) 0.1 Neut # (Auto) (2.0 - 7.6 K/mm3) 4.46 Lymph # (Auto) (1.0 - 3.8 K/mm3) 1.85 [place] # (Auto) (0.1 - 0.8 K/mm3) 0.27 Eos # (Auto) (0.0 - 0.2 K/mm3) 0.17 Baso # (Auto) (0.0 - 0.2 K/mm3) 0.01 Immature Gran % (0.0 - 2.0 %) 0.4 Nucleated RBC % (0 - 1.0 %) 0.0 Nucleated RBCs # (Man) (0.0 - 0.1 K/mm3) 0.00 Microbiology: 09/05 447 BLOOD: Blood Culture - RECD 09/05 447 BLOOD: Blood Culture - RECD 09/04 444 BLOOD: Blood Culture - RECD 09/04 444 BLOOD: Blood Culture - RECD 09/02 2120 NASAL: MRSA Screen - RECD Radiology data Recent Impressions: RADIOLOGY - XR CHEST 1V 09/04 440 Report Impression - Status: SIGNED Entered: 09/04/2018 0502 IMPRESSION: 1. Patchy consolidation at the right lung base c oncerning for pneumonia is seen. Impression By: [email or web address] - Cabrera Ngo MD Results: labs reviewed, ABGs reviewed, x-ray per sonally reviewed, current med profile rev'd Treatment Prophylaxis Treatment Prophylaxis Oxygen: room air Lines: peripheral Anti-arrhythmics: metoprolol Anti-infectives: ampicillin Diagnosis, Assessment Plan Free Text A P: Ms. Frye 38-year-old lady with history of pituitary mass with compression on the optic she has him status post trans-sphenoid resection in August 30, 2018, obesity, history of pulmonar y embolism about 10 months ago who developed hypoxia and chest tightness and was transfused to the IC U for further management 1-acute respiratory failure with hypoxia Differential diagnosis includes pulmonary embol ism and pneumonia Patient has high pretest probability for PE: Hi story of PE and lower extremity edema pain X-rays showing infiltration in the righ t base: However patient has normal CBC and temp We will obtain emergent CT scan of the chest wi th contrast PE protocol Patient has contraindication to use full dose a nticoagulation(discussed with Dr. Viera) If the CT scan is positive for pulmonary emboli sm: 10 patient will need IVC filter We will start antibiotic empirically for now Check procalcitonin in the morning 2-Healthcare associated pneumonia Presumptive diagnosis Patient has normal white blood cells and no cur rent fever X-rays showing new infiltrate Differential diagnosis includes atelectasis We will start empiric antibiotics and get cultu res Continue using incentive spirometer: If CT -PE protocol is negative 3-status post pituitary mass resection with brennan ssphenoidal approach Completed with diabetes insipidus on desmopress in 0.2 mg daily 4-hypertension On lisinopril and metoprolol We will start labetalol as needed: Blood pressu re continues to be elevated 5-history of pulmonary embolism Patient reported family history of pulmonary em bolus Patient will need probably to be on lifelong an ticoagulate She should be started on anticoagulation as mp n as she is cleared by neurosurgery service Critical care time 40 minutes excluding procedure time: Critical care time was spent in direct care of the patient managing elida white s acute respiratory failure with hypoxia and to commenting in the il dical record This patient has a high probability of sudden, c linically significant deterioration, which requires the highest level of physician preparedness to intervene urgently. I manage d/supervised life or organ supporting interventions that required frequent physi charles assessment. I devoted my full attention in the ICU to the direct care of this patient f or the period of time indicated above. Electronically Signed by Bear Wells MD on 08/20 09/07 at 0621 [facility][id number] END OF REPORT 2018-09-04 04:58:00-00:00 [facility] ([facility]) Rapid Response Note REPORT#:[id number] REPORT STATUS: Signed DATE:09/04/18 TIME: 0458 PATIENT: LEIGH FRYE UNIT #: [id number] ROOM/BED: [address] : 80 AGE: 38 SEX: F ATTEND: Johana Mckoy MD ADM AUTHOR: Bear Wells MD * ALL edits or amendments must be made on the [employer]/computer document * Rapid Response Note Response location: [facility] Primary service: internal medicine Reason response was called: hypoxemia Initial findings: hypoxemia Interventions: meds administered, lab ordered, r ad ordered Result of the response: transferred to SICU Primary service present during No Primary service notified: Yes Attending notified: Yes (Dr. Rothman covering for Dr. Mckoy) Family notified (whom): left msg at [phone] Comments: Right response was called for hypoxemia patient' s oxygen saturation went down from mid 90s to mid 70s, please see my full cons ult note for detail Electronically Signed by Bear Wells MD on 08/20 09/07 at 0500 RPT #:[id number] END OF REPORT 2018-09-04 04:46:00-00:00 [id number] [place] [address] PATIENT NAME: LEIGH FRYE ADMIT DATE: 08/25/18 ACCOUNT NO: [id number] ROOM NO: [facility] AGE: 38 REPORT TYPE: ELECTROCARDIOGRAM SEX: F ADMITTING PHYSICIAN:Jani Mckyo MD ATTENDING PHYSICIAN:Jani Mckoy MD Order: [id number] Test Reason : CHEST PAIN Test Date/Time Stamp: WedSep 04 2018 04:46:22 Blood Pressure : / mmHG Vent. Rate : 080 BPM Atrial Rate : 080 BPM P-R Int : 150 ms QRS Dur : 086 ms QT Int : 396 ms P-R-T Axes : 026 029 034 degree s QTc Int : 456 ms Normal sinus rhythm Normal ECG No previous ECGs available Confirmed by QIANA WATERS MD ([id number]) on 9 8:08:55 AM Referred By: Jani Mckoy Confirmed by:RAY WATERS MD Electronically Signed by Qiana Waters MD on at 0809 PATIENT NAME: LEIGH FRYE 2018-09-03 10:54:00-00:00 [facility] Internal Medicine Prog. Note REPORT#:[id number] REPORT STATUS: Signed DATE:09/03/18 TIME: 1054 PATIENT: LEIGH FRYE UNIT #: [id number] ROOM[address]BED: [address] : 80 AGE: 38 SEX: F ATTEND: Johana Mckoy MD ADM AUTHOR: Robert Rothman MD * ALL edits or amendments must be made on the [employer]/computer document * Subjective Patient reports: no complaints Review of Systems Additional notes: complaining of general body pain. constipation Objective General VS/I O: Vital Signs Date Temp Pulse Resp B/P B/P Mean Pulse Ox FiO2 09/02-09/03 97.3-98.2 64-86 13-24 120-151/63-80 88.6-100.8 94-100 Last Documented: Result Date Time Pulse Ox 94 09/03 0734 B/P 139/76 09/03 0734 B/P Mean 97.1 09/03 0734 O2 Delivery Room air 09/03 0734 Temp 97.3 09/03 0734 Pulse 64 09/03 0734 Resp 13 09/03 0734 O2 Flow Rate 10.659506 08/30 1615 24 hour I O ending at 0700: 09/03 0700 09/02 1900 Intake Total 700.00 1300.00 Output Total 1300 700 Balance -600 600.00 Intake, IV 200.00 450.00 Intake, Oral 500 850 Output, Urine 1300 700 Medications: Active Meds + DC'd Last 24 Hrs Lisinopril 5 MG DAILY PO Desmopressin Acetate 0.2 MG PC DIN PO Pneumococcal 13-Valent Conj Vacc 0.5 ML NOW ONE IM (DC) Lisinopril 10 MG DAILY PO (DC) Fludrocortisone Acetate 0.1 MG BID PO Polyethylene Glycol 17 GM DAILY PO Trazodone HCl 50 MG BEDTIME PRN PRN PO Docusate Sodium 100 MG BID PO Mupirocin 1 APPLIC BID NASAL Hydrocodone Bitart/Acetaminophen 1 TAB Q4H PRN P RN PO Hydrocodone Bitart/Acetaminophen 2 TAB Q4H PRN P RN PO Phenol 1 SPRAY Q4H PRN PRN MM Ampicillin Sodium/Sulbactam Sodium 3,000 MG Q6HR IV Sodium Chloride 100 ML Acetaminophen 650 MG Q4H PRN PRN PO Morphine Sulfate 4 MG Q4H PRN PRN IV Ondansetron HCl 4 MG Q4H PRN PRN IV Sodium Chloride 1,000 ML .Q20H IV (DC) [place] Oil/Swedish Balsam/Trypsin 1 XIANG Q12HR T OPICAL (CKD) Clotrimazole 1 XIANG BID TOPICAL (CKD) Pantoprazole 40 MG Q12HR PO Vitamin B Complex/Vitamin C 1 TAB BID PO (CKD) Zolpidem Tartrate 5 MG BEDTIME PRN PRN PO Tramadol HCl 100 MG TID PRN PRN PO Citalopram Hydrobromide 40 MG DAILY PO Metoprolol Tartrate 25 MG BID PO Sucralfate 1 GM QID PO Physical Exam General appearance: chronically ill appearing, o bese, alert, awake, no acute distress Results Findings/Data: Laboratory Tests 09/03/18 0503: [Embedded Image Not Available] 09/02/18 2200: [Embedded Image Not Available] 09/02/18 1643: [Embedded Image Not Available] Laboratory Tests 09/03 09/03 09/02 09/02 09/02 0503 0503 2200 2200 1643 Chemistry Sodium (137 - 145 MMOL/L) 141 143 144 Potassium (3.5 - 5.1 MMOL/L) 4.1 Chloride (98 - 107 MMOL/L) 107 Carbon Dioxide (22 - 30 MMOL/L) 29 BUN (7 - 17 MG/DL) 14 Creatinine (0.52 - 1.04 MG/DL) 0.60 Glomerular Filtr Rate > 60 Glucose (74 - 106 MG/DL) 99 Calcium (8.4 - 10.2 MG/DL) 9.1 Cortisol Baseline (1.7 - 22.7 ug/dL) 1.65 L Cortisol AM Sample (4.46 - 22.7 ug/dL) 1.20 L Cortisol PM Sample (3.09 - 16.66 mcg/dL) 1.20 L 09/02 1643 Chemistry Cortisol Baseline (1.7 - 22.7 ug/dL) 5.32 Laboratory Tests 09/03 0503 Hematology WBC (3.8 - 9.8 K/MM3) 6.8 RBC (3.58 - 4.97 M/MM3) 3.33 L Hgb (11.2 - 14.9 G/DL) 7.5 L Hct (33.2 - 43.5 %) 25.5 L MCV (80.7 - 99.1 fL) 77 L MCH (27.0 - 34.1 pg) 22.5 L MCHC (32.2 - 35.7 %) 29.4 L RDW (12.1 - 15.2 %) 20.5 H Plt Count (129 - 368 K/MM3) 245 MPV (7.4 - 10.4 fl) 9.7 Neut % (Auto) (43 - 75 %) 57.8 Lymph % (Auto) (14 - 44 %) 33.8 Merrick % (Auto) (4 - 13 %) 4.8 Eos % (Auto) (0 - 6 %) 2.9 Baso % (Auto) (0 - 2 %) 0.1 Neut # (Auto) (2.0 - 7.6 K/mm3) 3.95 Lymph # (Auto) (1.0 - 3.8 K/mm3) 2.31 Merrick # (Auto) (0.1 - 0.8 K/mm3) 0.33 Eos # (Auto) (0.0 - 0.2 K/mm3) 0.20 Baso # (Auto) (0.0 - 0.2 K/mm3) 0.01 Immature Gran % (0.0 - 2.0 %) 0.6 Nucleated RBC % (0 - 1.0 %) 0.0 Nucleated RBCs # (Man) (0.0 - 0.1 K/mm3) 0.00 Laboratory Tests 09/02 2121 Urines Ur Specific Beatty (1.003 - 1.030) 1.025 Free Text Obj Notes Free Text Obj Notes: Physical Exam Head/Eyes: atraumatic, normocephalic ENT: normal nose, normal pharynx, normal sinus Neck: no bruit/NL carotids, no JVD, no lymphaden opathy Cardiovascular: regular rate rhythm, no murmur Respiratory: decreased breath sounds Abdomen: non-tender, normal bowel sounds, soft, no mass/organomegaly Extremities: Extremities: no clubbing, no cyanosis, no edema Musculoskeletal: decreased ROM Neuro/REFERRAL COORDINATOR: disoriented Skin: no rash Lymphatics: no lymphadenopathy Diagnosis, Assessment Plan Free Text A P: ASSESSMENT 1. Pituitary adenoma: s/p transsphenoidal resect ion. 2. HTN. 3. Microcytic anemia with iron deficiency. 4. HTN. 5. Morbid obesity. PLAN PT/OT Pain medication as needed Unasyn for 10 days FeSO4 Electronically Signed by Robert Rothman MD on at 1703 RPT #:[id number] END OF REPORT 2018-09-02 14:53:00-00:00 [id number] [place] [address] PATIENT NAME: LEIGH FRYE ADMIT DATE: 08/25/18 ACCOUNT NO: [id number] ROOM NO: Z.[id number] AGE: 38 REPORT TYPE: PROGRESS NOTE SEX: F ADMITTING PHYSICIAN:Jani Mckoy MD ATTENDING PHYSICIAN:Jani Mckoy MD DATE: ADDENDUM TO GENERAL PROGRESS NOTE SUBJECTIVE: A 38-year-old female transferred fro [facility] with pituitary adenoma resection 3 days ago. She had CSF, rhinorrhea on first day, which has been diminishing, its zero ove rnight. She has no headache, no fever. Also, she had diabetes insipidus and has been ge tting DDAVP injections every evening with control of diuresis. I believe she will need some more time on DDAVP to be best scheduled a nd dose every night and watch for next several days if she does. Her cortisol levels have been decli yanique and the p.m. levels have come down to 3.43 from high of 78 postop. Her AC TH level prior to surgery was 35 postop 14.7. We will recheck ACTH level on Mo nday and continue checking Cortisol level every day and decide if hydrocort isone resuscitation as indicated. Aldosterone level was less than 1. Sh e has already been started on Florinef 0.1 twice a day. Blood sugars are satis factory. Her intact an output is satisfactory. Electrolytes are normal. There is no chest pain, cough, or shortness of breath. No nausea, vomiting, or yamila rrhea. Therapy working with her and ambulating with help. OBJECTIVE: NEUROLOGIC: She is stable with slight bl urring of vision. Swallowing is intact and strength is fairly normal. ASSESSMENT AND PLAN: The plan is to move her out of ICU. Continue monitoring urine output, Cortisol levels, CSF drainage in n eurological setting and rehabilitation. Hypertension control is satisfac tory. She is needing less of the antihypertensive medications. It may be due to the steroid output. Dictated By: Jani Mckoy MD WT: PN:GISSELLE/YONATHAN/JERSON Conf#: [id number]/DID#: [id number] Authenticated by Jani Mckoy MD On 06:05:11 AM PATIENT NAME: LEIGH FRYE at 0605 PATIENT NAME: LEIGH FRYE 2018-09-02 14:10:00-00:00 [facility] ([facility]) General Progress Note REPORT#:[id number] REPORT STATUS: Signed DATE:09/02/18 TIME: 1410 PATIENT: LEIGH FRYE UNIT #: [id number] [address]BED: [address] : [address] AGE: 38 SEX: F ATTEND: Johana Mckoy MD ADM AUTHOR: Jani Mckoy MD * ALL edits or amendments must be made on the el [employer]/computer document * Subjective Comments: Vital Signs Date Time Temp Pulse Resp B/P B/P Pulse O2 O2 Flow FiO2 Mean Ox Delivery Rate 09/02 0800 97.6 09/02 0640 79 27 97 09/02 0730 74 25 99 09/02 0715 77 14 98 09/02 0700 73 15 110/55 79 95 06/14 0600 73 19 116/59 85 95 06/14 0500 72 14 119/57 82 97 06/14 0400 96.5 06/14 0400 68 16 113/56 80 97 06/14 0300 66 18 116/66 85 99 06/14 0200 66 15 118/56 81 94 06/14 0100 64 14 98/53 73 96 06/14 0000 97.1 06/14 0000 68 17 100/50 72 96 06/13 2300 61 13 111/59 81 97 06/13 2200 78 19 99 06/13 2100 81 22 116/59 85 100 06/13 2050 80 33 142/63 90 100 06/13 2000 83 19 99 06/13 1908 97.6 06/13 1900 73 29 96 06/13 1800 70 31 122/58 81 98 06/13 1702 71 21 132/91 105 99 06/13 1600 98.1 06/13 1600 79 26 99 06/13 1515 75 21 98 06/13 1442 74 24 136/60 86 100 06/13 1347 76 23 111/54 78 99 06/13 1300 73 20 112/53 77 99 06/13 1200 75 27 110/53 76 98 06/13 1143 97.9 06/13 1142 74 22 126/56 81 99 06/13 0917 79 45 122/54 78 98 06/13 0817 83 26 126/61 87 99 06/13 0800 98.3 06/13 0717 78 18 123/59 85 96 06/13 0617 79 16 116/55 79 97 06/13 0517 82 19 128/60 86 97 06/13 0417 82 18 118/73 89 96 06/13 0400 97.4 06/13 0317 80 17 112/59 78 96 06/13 0217 78 18 119/56 81 95 06/13 0117 79 16 112/52 75 96 06/13 0017 82 28 119/63 87 97 06/13 0000 97.7 06/12 2317 81 34 104/51 73 98 06/12 2230 18 97 06/12 2217 127 121/91 98 96 06/12 2117 132 19 129/88 103 96 06/12 2016 129 21 119 06/12 1999 97.6 06/12 1999 126 17 94 06/12 1945 128 22 97 06/12 1917 88 115/55 79 95 06/12 1900 85 94 08/31 1817 83 119/58 84 94 08/31 1717 84 24 126/58 83 94 08/31 1700 85 26 96 08/31 1617 75 23 125/58 84 96 08/31 1545 77 39 08/31 1541 97.8 08/31 1519 76 34 123/64 88 97 08/31 1500 77 30 98 08/31 1430 80 28 98 Recent Impressions: CAT SCAN - CT HEAD/BRAIN W/O CONT 08/31 0505 Report Impression - Status: SIGNED Entered: 08/31/2018 0820 IMPRESSION: Interval postoperative changes of a transsphenoi [place] resection of pituitary tumor with expected changes seen in th e region. Otherwise, no other intracranial abnormality. Impression By: [email or web address] - Keri Avila MD SEE DICTATION Electronically Signed by Jani Mckoy MD o n 09/02/18 at 1411 RPT #:[id number] END OF REPORT 2018-09-02 11:15:00-00:00 [facility] ([facility]) Neurosurgical Progress Note REPORT#:[id number] REPORT STATUS: Signed DATE:09/02/18 TIME: 1115 PATIENT: LEIGH FRYE UNIT #: [id number] ROOM[address]BED: [address] : 80 AGE: 38 SEX: F ATTEND: Johana Mckoy MD ADM AUTHOR: Tanya Rodriguez NP * ALL edits or amendments must be made on the el [employer]/computer document * Subjective Comments: Patient seen at the bedside. Nasal drainage sign ificantly reduced. Packing in place. Has not required further DDAVP dosage, ur ine output, labs stable. Exam intact Objective General VS/I O: Vital Signs Date Temp Pulse Resp B/P B/P Mean Pulse Ox FiO2 09/01-09/02 96.5-98.1 61-83 13-33 98-142/50-91 72-105 94-100 24 hour I O ending at 0700: 09/02 0700 09/01 1900 Intake Total 750.00 4020.00 Output Total 1643 798 Balance -893.00 3222.00 Intake, IV 750.00 800.00 Intake, Oral 3220 Output, Urine 1643 798 Patient 186.88 kg Weight Medications: Active Meds + DC'd Last 24 Hrs Lisinopril 10 MG DAILY PO Pneumococcal 13-Valent Conj Vacc 0.5 ML NOW ONE IM (PEND) Fludrocortisone Acetate 0.1 MG BID PO Polyethylene Glycol 17 GM DAILY PO Lactated Ringer's 1,000 ML ONCE ONE IV (DC) Trazodone HCl 50 MG BEDTIME PRN PRN PO Docusate Sodium 100 MG BID PO Mupirocin 1 APPLIC BID NASAL Hydrocodone Bitart/Acetaminophen 1 TAB Q4H PRN P RN PO Hydrocodone Bitart/Acetaminophen 2 TAB Q4H PRN P RN PO Phenol 1 SPRAY Q4H PRN PRN MM Ampicillin Sodium/Sulbactam Sodium 3,000 MG Q6HR IV Sodium Chloride 100 ML Acetaminophen 650 MG Q4H PRN PRN PO Morphine Sulfate 4 MG Q4H PRN PRN IV Ondansetron HCl 4 MG Q4H PRN PRN IV Sodium Chloride 1,000 ML .Q20H IV [place] Oil/Swedish Balsam/Trypsin 1 XIANG Q12HR T OPICAL (CKD) Clotrimazole 1 XIANG BID TOPICAL (CKD) Pantoprazole 40 MG Q12HR PO Vitamin B Complex/Vitamin C 1 TAB BID PO (CKD) Zolpidem Tartrate 5 MG BEDTIME PRN PRN PO Tramadol HCl 100 MG TID PRN PRN PO Citalopram Hydrobromide 40 MG DAILY PO Lisinopril 20 MG DAILY PO (DC) Metoprolol Tartrate 25 MG BID PO Sucralfate 1 GM QID PO Physical Exam General appearance: alert, awake, oriented Cardiovascular: normal capillary refill, regular rate rhythm Respiratory: no distress, symmetric expansion Abdomen: non-tender, normal bowel sounds, soft, no distention Neuro/REFERRAL COORDINATOR: alert, oriented X 3, CN II-XII intact, EOMI, PERRL, normal reflexes, normal speech, reflexes equal bilat, no motor de ficits, no sensory deficits Results Findings/Data: Laboratory Tests 09/02 09/02 09/01 09/01 09/01 0450 0450 2033 2033 1303 Chemistry Sodium (137 - 145 MMOL/L) 142 141 142 Potassium (3.5 - 5.1 MMOL/L) 3.9 Chloride (98 - 107 MMOL/L) 107 Carbon Dioxide (22 - 30 MMOL/L) 29 BUN (7 - 17 MG/DL) 12 Creatinine (0.52 - 1.04 MG/DL) 0.70 Glomerular Filtr Rate > 60 Glucose (74 - 106 MG/DL) 129 H Calcium (8.4 - 10.2 MG/DL) 9.1 Cortisol Baseline (1.7 - 22.7 ug/dL) 3.43 4.12 09/01 1303 Chemistry Cortisol Baseline (1.7 - 22.7 ug/dL) 9.19 Laboratory Tests 09/02 0450 Hematology WBC (3.8 - 9.8 K/MM3) 8.3 RBC (3.58 - 4.97 M/MM3) 3.43 L Hgb (11.2 - 14.9 G/DL) 7.7 L Hct (33.2 - 43.5 %) 26.2 L MCV (80.7 - 99.1 fL) 76 L MCH (27.0 - 34.1 pg) 22.4 L MCHC (32.2 - 35.7 %) 29.4 L RDW (12.1 - 15.2 %) 20.1 H Plt Count (129 - 368 K/MM3) 270 MPV (7.4 - 10.4 fl) 9.5 Neut % (Auto) (43 - 75 %) 53.4 Lymph % (Auto) (14 - 44 %) 37.2 [place] % (Auto) (4 - 13 %) 6.2 Eos % (Auto) (0 - 6 %) 2.0 Baso % (Auto) (0 - 2 %) 0.2 Neut # (Auto) (2.0 - 7.6 K/mm3) 4.44 Lymph # (Auto) (1.0 - 3.8 K/mm3) 3.10 [place] # (Auto) (0.1 - 0.8 K/mm3) 0.52 Eos # (Auto) (0.0 - 0.2 K/mm3) 0.17 Baso # (Auto) (0.0 - 0.2 K/mm3) 0.02 Immature Gran % (0.0 - 2.0 %) 1.0 Nucleated RBC % (0 - 1.0 %) 0.0 Nucleated RBCs # (Man) (0.0 - 0.1 K/mm3) 0.00 Laboratory Tests 09/02 1300 Urines Ur Specific Beat[place] (1.003 - 1.030) 1.010 1.015 1.020 Diagnosis, Assessment Plan Free Text A P: A: 38 year old female now POD#3 from transspheno idal resection of pituitary adenoma P: Urine output and labs stable Okay to transfer out of ICU today, orders placed PT/OT Pain medication as needed Unasyn for 10 days Electronically Signed by Tanya Rodriguez NP on 08/20 10/07 at 1258 RPT #:[id number] END OF REPORT 2018-09-02 11:15:00-00:00 [facility] ([facility]) Neurosurgical Progress Note REPORT#:[id number] REPORT STATUS: Signed DATE:09/02/18 TIME: 1115 PATIENT: LEIGH FRYE UNIT #: [id number] ROOM/BED: [address] : 80 AGE: 38 SEX: F ATTEND: Johana Mckoy MD ADM AUTHOR: Tanya Rodriguez NP * ALL edits or amendments must be made on the [employer]/computer document * Tanya Rodriguez NP 09/02/18 1115: Subjective Comments: Patient seen at the bedside. Nasal drainage sign ificantly reduced. Packing in place. Has not required further DDAVP dosage, ur ine output, labs stable. Exam intact Objective General VS/I O: Vital Signs Date Temp Pulse Resp B/P B/P Mean Pulse Ox FiO 2 09/01-09/02 96.5-98.1 61-83 13-33 98-142/50-91 72-105 94-100 24 hour I O ending at 0700: 09/02 0700 09/01 1900 Intake Total 750.00 4020.00 Output Total 1643 798 Balance -893.00 3222.00 Intake, IV 750.00 800.00 Intake, Oral 3220 Output, Urine 1643 798 Patient 186.88 kg Weight Medications: Active Meds + DC'd Last 24 Hrs Lisinopril 10 MG DAILY PO Pneumococcal 13-Valent Conj Vacc 0.5 ML NOW ONE IM (PEND) Fludrocortisone Acetate 0.1 MG BID PO Polyethylene Glycol 17 GM DAILY PO Lactated Ringer's 1,000 ML ONCE ONE IV (DC) Trazodone HCl 50 MG BEDTIME PRN PRN PO Docusate Sodium 100 MG BID PO Mupirocin 1 APPLIC BID NASAL Hydrocodone Bitart/Acetaminophen 1 TAB Q4H PRN P RN PO Hydrocodone Bitart/Acetaminophen 2 TAB Q4H PRN P RN PO Phenol 1 SPRAY Q4H PRN PRN MM Ampicillin Sodium/Sulbactam Sodium 3,000 MG Q6HR IV Sodium Chloride 100 ML Acetaminophen 650 MG Q4H PRN PRN PO Morphine Sulfate 4 MG Q4H PRN PRN IV Ondansetron HCl 4 MG Q4H PRN PRN IV Sodium Chloride 1,000 ML .Q20H IV [place] Oil/Swedish Balsam/Trypsin 1 XIANG Q12HR T OPICAL (CKD) Clotrimazole 1 XIANG BID TOPICAL (CKD) Pantoprazole 40 MG Q12HR PO Vitamin B Complex/Vitamin C 1 TAB BID PO (CKD) Zolpidem Tartrate 5 MG BEDTIME PRN PRN PO Tramadol HCl 100 MG TID PRN PRN PO Citalopram Hydrobromide 40 MG DAILY PO Lisinopril 20 MG DAILY PO (DC) Metoprolol Tartrate 25 MG BID PO Sucralfate 1 GM QID PO Physical Exam General appearance: alert, awake, oriented Cardiovascular: normal capillary refill, regular rate rhythm Respiratory: no distress, symmetric expansion Abdomen: non-tender, normal bowel sounds, soft, no distention Neuro/REFERRAL COORDINATOR: alert, oriented X 3, CN II-XII intact, EOMI, PERRL, normal reflexes, normal speech, reflexes equal bilat, no motor de ficits, no sensory deficits Results Findings/Data: Laboratory Tests 09/02 09/02 09/01 09/01 09/01 0450 0450 2033 2033 1303 Chemistry Sodium (137 - 145 MMOL/L) 142 141 142 Potassium (3.5 - 5.1 MMOL/L) 3.9 Chloride (98 - 107 MMOL/L) 107 Carbon Dioxide (22 - 30 MMOL/L) 29 BUN (7 - 17 MG/DL) 12 Creatinine (0.52 - 1.04 MG/DL) 0.70 Glomerular Filtr Rate > 60 Glucose (74 - 106 MG/DL) 129 H Calcium (8.4 - 10.2 MG/DL) 9.1 Cortisol Baseline (1.7 - 22.7 ug/dL) 3.43 4.12 09/01 1303 Chemistry Cortisol Baseline (1.7 - 22.7 ug/dL) 9.19 Laboratory Tests 09/02 0450 Hematology WBC (3.8 - 9.8 K/MM3) 8.3 RBC (3.58 - 4.97 M/MM3) 3.43 L Hgb (11.2 - 14.9 G/DL) 7.7 L Hct (33.2 - 43.5 %) 26.2 L MCV (80.7 - 99.1 fL) 76 L MCH (27.0 - 34.1 pg) 22.4 L MCHC (32.2 - 35.7 %) 29.4 L RDW (12.1 - 15.2 %) 20.1 H Plt Count (129 - 368 K/MM3) 270 MPV (7.4 - 10.4 fl) 9.5 Neut % (Auto) (43 - 75 %) 53.4 Lymph % (Auto) (14 - 44 %) 37.2 [place] % (Auto) (4 - 13 %) 6.2 Eos % (Auto) (0 - 6 %) 2.0 Baso % (Auto) (0 - 2 %) 0.2 Neut # (Auto) (2.0 - 7.6 K/mm3) 4.44 Lymph # (Auto) (1.0 - 3.8 K/mm3) 3.10 [place] # (Auto) (0.1 - 0.8 K/mm3) 0.52 Eos # (Auto) (0.0 - 0.2 K/mm3) 0.17 Baso # (Auto) (0.0 - 0.2 K/mm3) 0.02 Immature Gran % (0.0 - 2.0 %) 1.0 Nucleated RBC % (0 - 1.0 %) 0.0 Nucleated RBCs # (Man) (0.0 - 0.1 K/mm3) 0.00 Laboratory Tests 09/02 09/01 09/01 065 1300 Urines Ur Specific [place] (1.003 - 1.030) 1.010 1.015 1.020 Diagnosis, Assessment Plan Free Text A P: A: 38 year old female now POD#3 from transspheno idal resection of pituitary adenoma P: Urine output and labs stable Okay to transfer out of ICU today, orders placed PT/OT Pain medication as needed Unasyn for 10 days Ozzy Viera 09/06/18 2242: Diagnosis, Assessment Plan Additional comments: Agree with above Electronically Signed by Tanya Rodriguez NP on 08/20 10/07 at 1258 RPT #:[id number] END OF REPORT 2018-09-02 11:15:00-00:00 [facility] ([facility] Neurosurgical Progress Note REPORT#:[id number] REPORT STATUS: Signed DATE:09/02/18 TIME: 1115 PATIENT: LEIGH FRYE UNIT #: [id number] ROOM/BED: [address] : 80 AGE: 38 SEX: F ATTEND: Johana Mckoy MD ADM AUTHOR: Tanya Rodriguez NP * ALL edits or amendments must be made on the [employer]/computer document * Tanya Rodriguez NP 09/02/18 1115: Subjective Comments: Patient seen at the bedside. Nasal drainage sign ificantly reduced. Packing in place. Has not required further DDAVP dosage, ur ine output, labs stable. Exam intact Objective General VS/I O: Vital Signs Date Temp Pulse Resp B/P B/P Mean Pulse Ox FiO2 09/01-09/02 96.5-98.1 61-83 13-33 98-142/50-91 72-105 94-100 24 hour I O ending at 0700: 09/02 0700 09/01 1900 Intake Total 750.00 4020.00 Output Total 1643 798 Balance -893.00 3222.00 Intake, IV 750.00 800.00 Intake, Oral 3220 Output, Urine 1643 798 Patient 186.88 kg Weight Medications: Active Meds + DC'd Last 24 Hrs Lisinopril 10 MG DAILY PO Pneumococcal 13-Valent Conj Vacc 0.5 ML NOW ONE IM (PEND) Fludrocortisone Acetate 0.1 MG BID PO Polyethylene Glycol 17 GM DAILY PO Lactated Ringer's 1,000 ML ONCE ONE IV (DC) Trazodone HCl 50 MG BEDTIME PRN PRN PO Docusate Sodium 100 MG BID PO Mupirocin 1 APPLIC BID NASAL Hydrocodone Bitart/Acetaminophen 1 TAB Q4H PRN P RN PO Hydrocodone Bitart/Acetaminophen 2 TAB Q4H PRN P RN PO Phenol 1 SPRAY Q4H PRN PRN MM Ampicillin Sodium/Sulbactam Sodium 3,000 MG Q6HR IV Sodium Chloride 100 ML Acetaminophen 650 MG Q4H PRN PRN PO Morphine Sulfate 4 MG Q4H PRN PRN IV Ondansetron HCl 4 MG Q4H PRN PRN IV Sodium Chloride 1,000 ML .Q20H IV [place] Oil/Swedish Balsam/Trypsin 1 XIANG Q12HR T OPICAL (CKD) Clotrimazole 1 XIANG BID TOPICAL (CKD) Pantoprazole 40 MG Q12HR PO Vitamin B Complex/Vitamin C 1 TAB BID PO (CKD) Zolpidem Tartrate 5 MG BEDTIME PRN PRN PO Tramadol HCl 100 MG TID PRN PRN PO Citalopram Hydrobromide 40 MG DAILY PO Lisinopril 20 MG DAILY PO (DC) Metoprolol Tartrate 25 MG BID PO Sucralfate 1 GM QID PO Physical Exam General appearance: alert, awake, oriented Cardiovascular: normal capillary refill, regular rate rhythm Respiratory: no distress, symmetric expansion Abdomen: non-tender, normal bowel sounds, soft, no distention Neuro/REFERRAL COORDINATOR: alert, oriented X 3, CN II-XII intact, EOMI, PERRL, normal reflexes, normal speech, reflexes equal bilat, no motor de ficits, no sensory deficits Results Findings/Data: Laboratory Tests 09/02 09/02 09/01 09/01 09/01 0450 0450 2033 2033 1303 Chemistry Sodium (137 - 145 MMOL/L) 142 141 142 Potassium (3.5 - 5.1 MMOL/L) 3.9 Chloride (98 - 107 MMOL/L) 107 Carbon Dioxide (22 - 30 MMOL/L) 29 BUN (7 - 17 MG/DL) 12 Creatinine (0.52 - 1.04 MG/DL) 0.70 Glomerular Filtr Rate > 60 Glucose (74 - 106 MG/DL) 129 H Calcium (8.4 - 10.2 MG/DL) 9.1 Cortisol Baseline (1.7 - 22.7 ug/dL) 3.43 4.12 09/01 1303 Chemistry Cortisol Baseline (1.7 - 22.7 ug/dL) 9.19 Laboratory Tests 09/02 0450 Hematology WBC (3.8 - 9.8 K/MM3) 8.3 RBC (3.58 - 4.97 M/MM3) 3.43 L Hgb (11.2 - 14.9 G/DL) 7.7 L Hct (33.2 - 43.5 %) 26.2 L MCV (80.7 - 99.1 fL) 76 L MCH (27.0 - 34.1 pg) 22.4 L MCHC (32.2 - 35.7 %) 29.4 L RDW (12.1 - 15.2 %) 20.1 H Plt Count (129 - 368 K/MM3) 270 MPV (7.4 - 10.4 fl) 9.5 Neut % (Auto) (43 - 75 %) 53.4 Lymph % (Auto) (14 - 44 %) 37.2 Merrick % (Auto) (4 - 13 %) 6.2 Eos % (Auto) (0 - 6 %) 2.0 Baso % (Auto) (0 - 2 %) 0.2 Neut # (Auto) (2.0 - 7.6 K/mm3) 4.44 Lymph # (Auto) (1.0 - 3.8 K/mm3) 3.10 [place] # (Auto) (0.1 - 0.8 K/mm3) 0.52 Eos # (Auto) (0.0 - 0.2 K/mm3) 0.17 Baso # (Auto) (0.0 - 0.2 K/mm3) 0.02 Immature Gran % (0.0 - 2.0 %) 1.0 Nucleated RBC % (0 - 1.0 %) 0.0 Nucleated RBCs # (Man) (0.0 - 0.1 K/mm3) 0.00 Laboratory Tests 09/02 09/01 09/01 0625 2035 1300 Urines Ur Specific Beat[place] (1.003 - 1.030) 1.010 1.01 5 1.020 Diagnosis, Assessment Plan Free Text A P: A: 38 year old female now POD#3 from transspheno idal resection of pituitary adenoma P: Urine output and labs stable Okay to transfer out of ICU today, orders placed PT/OT Pain medication as needed Unasyn for 10 days Ozzy Viera 09/06/18 2242: Diagnosis, Assessment Plan Additional comments: Agree with above Electronically Signed by Tanya Rodriguez NP on 08/20 10/07 at 1258 RPT #:[id number] END OF REPORT 2018-09-02 11:15:00-00:00 [facility] ([facility]) Neurosurgical Progress Note REPORT#:[id number] REPORT STATUS: Signed DATE:09/02/18 TIME: 111 PATIENT: LEIGH FRYE UNIT #: [id number] ROOM/BED: [address] : 80 AGE: 38 SEX: F ATTEND: Johana Mckoy MD ADM AUTHOR: Tanya Rodriguez NP * ALL edits or amendments must be made on the [employer]/computer document * Tanya Rodriguez NP 09/02/18 1115: Subjective Comments: Patient seen at the bedside. Nasal drainage sign ificantly reduced. Packing in place. Has not required further DDAVP dosage, ur ine output, labs stable. Exam intact Objective General VS/I O: Vital Signs Date Temp Pulse Resp B/P B/P Mean Pulse Ox FiO2 09/01-09/02 96.5-98.1 61-83 13-33 98-142/50-91 72-105 94-100 24 hour I O ending at 0700: 09/02 0700 09/01 1900 Intake Total 750.00 4020.00 Output Total 1643 798 Balance -893.00 3222.00 Intake, IV 750.00 800.00 Intake, Oral 3220 Output, Urine 1643 798 Patient 186.88 kg Weight Medications: Active Meds + DC'd Last 24 Hrs Lisinopril 10 MG DAILY PO Pneumococcal 13-Valent Conj Vacc 0.5 ML NOW ONE IM (PEND) Fludrocortisone Acetate 0.1 MG BID PO Polyethylene Glycol 17 GM DAILY PO Lactated Ringer's 1,000 ML ONCE ONE IV (DC) Trazodone HCl 50 MG BEDTIME PRN PRN PO Docusate Sodium 100 MG BID PO Mupirocin 1 APPLIC BID NASAL Hydrocodone Bitart/Acetaminophen 1 TAB Q4H PRN P RN PO Hydrocodone Bitart/Acetaminophen 2 TAB Q4H PRN P RN PO Phenol 1 SPRAY Q4H PRN PRN MM Ampicillin Sodium/Sulbactam Sodium 3,000 MG Q6HR IV Sodium Chloride 100 ML Acetaminophen 650 MG Q4H PRN PRN PO Morphine Sulfate 4 MG Q4H PRN PRN IV Ondansetron HCl 4 MG Q4H PRN PRN IV Sodium Chloride 1,000 ML .Q20H IV [place] Oil/[place]ish Balsam/Trypsin 1 XIANG Q12HR T OPICAL (CKD) Clotrimazole 1 XIANG BID TOPICAL (CKD) Pantoprazole 40 MG Q12HR PO Vitamin B Complex/Vitamin C 1 TAB BID PO (CKD) Zolpidem Tartrate 5 MG BEDTIME PRN PRN PO Tramadol HCl 100 MG TID PRN PRN PO Citalopram Hydrobromide 40 MG DAILY PO Lisinopril 20 MG DAILY PO (DC) Metoprolol Tartrate 25 MG BID PO Sucralfate 1 GM QID PO Physical Exam General appearance: alert, awake, oriented Cardiovascular: normal capillary refill, regular rate rhythm Respiratory: no distress, symmetric expansion Abdomen: non-tender, normal bowel sounds, soft, no distention Neuro/REFERRAL COORDINATOR: alert, oriented X 3, CN II-XII intact, EOMI, PERRL, normal reflexes, normal speech, reflexes equal bilat, no motor de ficits, no sensory deficits Results Findings/Data: Laboratory Tests 09/02 09/02 09/01 09/01 09/01 0450 0450 2033 2033 1303 Chemistry Sodium (137 - 145 MMOL/L) 142 141 142 Potassium (3.5 - 5.1 MMOL/L) 3.9 Chloride (98 - 107 MMOL/L) 107 Carbon Dioxide (22 - 30 MMOL/L) 29 BUN (7 - 17 MG/DL) 12 Creatinine (0.52 - 1.04 MG/DL) 0.70 Glomerular Filtr Rate > 60 Glucose (74 - 106 MG/DL) 129 H Calcium (8.4 - 10.2 MG/DL) 9.1 Cortisol Baseline (1.7 - 22.7 ug/dL) 3.43 4.12 09/01 1303 Chemistry Cortisol Baseline (1.7 - 22.7 ug/dL) 9.19 Laboratory Tests 09/02 0450 Hematology WBC (3.8 - 9.8 K/MM3) 8.3 RBC (3.58 - 4.97 M/MM3) 3.43 L Hgb (11.2 - 14.9 G/DL) 7.7 L Hct (33.2 - 43.5 %) 26.2 L MCV (80.7 - 99.1 fL) 76 L MCH (27.0 - 34.1 pg) 22.4 L MCHC (32.2 - 35.7 %) 29.4 L RDW (12.1 - 15.2 %) 20.1 H Plt Count (129 - 368 K/MM3) 270 MPV (7.4 - 10.4 fl) 9.5 Neut % (Auto) (43 - 75 %) 53.4 Lymph % (Auto) (14 - 44 %) 37.2 Merrick % (Auto) (4 - 13 %) 6.2 Eos % (Auto) (0 - 6 %) 2.0 Baso % (Auto) (0 - 2 %) 0.2 Neut # (Auto) (2.0 - 7.6 K/mm3) 4.44 Lymph # (Auto) (1.0 - 3.8 K/mm3) 3.10 Merrick # (Auto) (0.1 - 0.8 K/mm3) 0.52 Eos # (Auto) (0.0 - 0.2 K/mm3) 0.17 Baso # (Auto) (0.0 - 0.2 K/mm3) 0.02 Immature Gran % (0.0 - 2.0 %) 1.0 Nucleated RBC % (0 - 1.0 %) 0.0 Nucleated RBCs # (Man) (0.0 - 0.1 K/mm3) 0.00 Laboratory Tests 09/02 09/01 09/01 0625 2035 1300 Urines Ur Specific Beatty (1.003 - 1.030) 1.010 1.015 1.020 Diagnosis, Assessment Plan Free Text A P: A: 38 year old female now POD#3 from transspheno idal resection of pituitary adenoma P: Urine output and labs stable Okay to transfer out of ICU today, orders placed PT/OT Pain medication as needed Unasyn for 10 days Ozzy Viera 09/06/18 2242: Diagnosis, Assessment Plan Additional comments: Agree with above Electronically Signed by Tanya Rodriguez NP on 08/20 10/07 at 1258 Electronically Signed by Ozzy Viera MD on 08/20 11/07 at 2243 RPT #[id number] END OF REPORT 2018-09-01 15:54:00-00:00 [facility] ([facility]) Neurosurgical Progress Note REPORT#:[id number] REPORT STATUS: Signed DATE:09/01/18 TIME: 1554 PATIENT: LEIGH FYRE UNIT #: [id number] [address]/BED: [address] : [address] AGE: 38 SEX: F ATTEND: Johana Mckoy MD ADM AUTHOR: Tanya Rodriguez NP * ALL edits or amendments must be made on the [employer]/computer document * Subjective Comments: Nasal drainage slowed significantly last night. Will plan on holding off on lumbar drain for now. Will continue to monitor Objective General VS/I O: Vital Signs Date Temp Pulse Resp B/P B/P Mean Pulse Ox FiO2 08/31-09/01 97.4-98.3 73-132 16-45 104-129/51-9 1 73-119 94-99 24 hour I O ending at 0700: 09/01 0700 08/31 1900 Intake Total 3030.00 2490.00 Output Total 4140 1065 Balance -1110.00 1425.00 Intake, IV 1350.00 1010.00 Intake, Oral 1680 1480 Number 1 Bowel Movements Output, Urine 4140 1065 Patient 186.88 kg Weight Medications: Active Meds + DC'd Last 24 Hrs Lisinopril 10 MG DAILY PO Fludrocortisone Acetate 0.1 MG BID PO Polyethylene Glycol 17 GM DAILY PO Lactated Ringer's 1,000 ML ONCE ONE IV Desmopressin Acetate 2 MCG ONCE ONE IV (DC) Sodium Chloride 500 ML BOLUS ONCE ONE IV (DC) Trazodone HCl 50 MG BEDTIME PRN PRN PO Docusate Sodium 100 MG BID PO Mupirocin 1 APPLIC BID NASAL Hydrocodone Bitart/Acetaminophen 1 TAB Q4H PRN P RN PO Hydrocodone Bitart/Acetaminophen 2 TAB Q4H PRN P RN PO Phenol 1 SPRAY Q4H PRN PRN MM Ampicillin Sodium/Sulbactam Sodium 3,000 MG Q6HR IV Sodium Chloride 100 ML Acetaminophen 650 MG Q4H PRN PRN PO Morphine Sulfate 4 MG Q4H PRN PRN IV Ondansetron HCl 4 MG Q4H PRN PRN IV Sodium Chloride 1,000 ML .Q20H IV [place] Oil/Swedish Balsam/Trypsin 1 XIANG Q12HR T OPICAL (CKD) Clotrimazole 1 XIANG BID TOPICAL (CKD) Pantoprazole 40 MG Q12HR PO Vitamin B Complex/Vitamin C 1 TAB BID PO (CKD) Zolpidem Tartrate 5 MG BEDTIME PRN PRN PO Ferric Sodium Gluconate Complex 125 MG Q24H IV ( DC) Sodium Chloride 100 ML Tramadol HCl 100 MG TID PRN PRN PO Citalopram Hydrobromide 40 MG DAILY PO Lisinopril 20 MG DAILY PO (DC) Metoprolol Tartrate 25 MG BID PO Sucralfate 1 GM QID PO Physical Exam General appearance: alert, awake, oriented Cardiovascular: normal capillary refill, regular rate rhythm Respiratory: no distress, symmetric expansion Neuro/REFERRAL COORDINATOR: alert, oriented X 3, CN II-XII intact, EOMI, PERRL, normal reflexes, normal speech, reflexes equal bilat, no motor de ficits, no sensory deficits Results Findings/Data: Laboratory Tests 09/01 09/01 09/01 09/01 08/31 1303 1303 0730 0400 2329 Chemistry Sodium (137 - 145 MMOL/L) 142 144 143 142 Potassium (3.5 - 5.1 MMOL/L) 4.1 Chloride (98 - 107 MMOL/L) 112 H Carbon Dioxide (22 - 30 MMOL/L) 25 BUN (7 - 17 MG/DL) 13 Creatinine (0.52 - 1.04 MG/DL) 0.70 Glomerular Filtr Rate > 60 Glucose (74 - 106 MG/DL) 198 H Calcium (8.4 - 10.2 MG/DL) 8.8 Cortisol Baseline (1.7 - 22.7 ug/dL) 9.19 08/319 Chemistry Sodium (137 - 145 MMOL/L) 141 Laboratory Tests 09/01 0400 Coagulation INR (0.8 - 1.1) 1.0 APTT (22.0 - 33.0 SECONDS) 25.0 PT Patient/Control Mix (9.6 - 11.6 SECONDS) 10. 1 Laboratory Tests 09/01 0400 Hematology WBC (3.8 - 9.8 K/MM3) 11.7 H RBC (3.58 - 4.97 M/MM3) 3.59 Hgb (11.2 - 14.9 G/DL) 8.0 L Hct (33.2 - 43.5 %) 26.8 L MCV (80.7 - 99.1 fL) 75 L MCH (27.0 - 34.1 pg) 22.3 L MCHC (32.2 - 35.7 %) 29.9 L RDW (12.1 - 15.2 %) 19.5 H Plt Count (129 - 368 K/MM3) 301 MPV (7.4 - 10.4 fl) 9.4 Neut % (Auto) (43 - 75 %) 71.6 Lymph % (Auto) (14 - 44 %) 18.1 Merrick % (Auto) (4 - 13 %) 8.3 Eos % (Auto) (0 - 6 %) 0.5 Baso % (Auto) (0 - 2 %) 0.1 Neut # (Auto) (2.0 - 7.6 K/mm3) 8.40 H Lymph # (Auto) (1.0 - 3.8 K/mm3) 2.13 Merrick # (Auto) (0.1 - 0.8 K/mm3) 0.98 H Eos # (Auto) (0.0 - 0.2 K/mm3) 0.06 Baso # (Auto) (0.0 - 0.2 K/mm3) 0.01 Immature Gran % (0.0 - 2.0 %) 1.4 Nucleated RBC % (0 - 1.0 %) 0.0 Nucleated RBCs # (Man) (0.0 - 0.1 K/mm3) 0.00 Laboratory Tests 09/0112 1300 0835 2320 1955 1735 Urines Ur Specific Beatty (1.003 - 1.030) 1.020 1.015 1.005 1.010 1.015 Diagnosis, Assessment Plan Free Text A P: A: 38 year old female now POD#2 from transspheno idal resection of pituitary adenoma P: Hold off on lumbar drain Will continue to monitor one more day in ICU. Ca n transfer out tomorrow Continue serial Na, urine spec grav and cortisol until tomorrow PT/OT Pain medication as needed Electronically Signed by Tanya Rodriguez NP on 08/20 06/07 at 1557 RPT #:[id number] END OF REPORT 2018-09-01 15:54:00-00:00 [facility] ([facility]) Neurosurgical Progress Note REPORT#:[id number] REPORT STATUS: Signed DATE:09/01/18 TIME: 1554 PATIENT: LEIGH FRYE UNIT #: [id number] [address]BED: [address] : 80 AGE: 38 SEX: F ATTEND: Johana Mckoy MD ADM AUTHOR: Tanya Rodriguez NP * ALL edits or amendments must be made on the [employer]/computer document * Tanya Rodriguez NP 09/01/18 1554: Subjective Comments: Nasal drainage slowed significantly last night. Will plan on holding off on lumbar drain for now. Will continue to monitor Objective General VS/I O: Vital Signs Date Temp Pulse Resp B/P B/P Mean Pulse Ox FiO2 08/31-09/01 97.4-98.3 73-132 16-45 104-129/51-9 1 73-119 94-99 24 hour I O ending at 0700: 09/01 0700 08/31 1900 Intake Total 3030.00 2490.00 Output Total 4140 1065 Balance -1110.00 1425.00 Intake, IV 1350.00 1010.00 Intake, Oral 1680 1480 Number 1 Bowel Movements Output, Urine 4140 1065 Patient 186.88 kg Weight Medications: Active Meds + DC'd Last 24 Hrs Lisinopril 10 MG DAILY PO Fludrocortisone Acetate 0.1 MG BID PO Polyethylene Glycol 17 GM DAILY PO Lactated Ringer's 1,000 ML ONCE ONE IV Desmopressin Acetate 2 MCG ONCE ONE IV (DC) Sodium Chloride 500 ML BOLUS ONCE ONE IV (DC) Trazodone HCl 50 MG BEDTIME PRN PRN PO Docusate Sodium 100 MG BID PO Mupirocin 1 APPLIC BID NASAL Hydrocodone Bitart/Acetaminophen 1 TAB Q4H PRN P RN PO Hydrocodone Bitart/Acetaminophen 2 TAB Q4H PRN P RN PO Phenol 1 SPRAY Q4H PRN PRN MM Ampicillin Sodium/Sulbactam Sodium 3,000 MG Q6HR IV Sodium Chloride 100 ML Acetaminophen 650 MG Q4H PRN PRN PO Morphine Sulfate 4 MG Q4H PRN PRN IV Ondansetron HCl 4 MG Q4H PRN PRN IV Sodium Chloride 1,000 ML .Q20H IV [place] Oil/Swedish Balsam/Trypsin 1 XIANG Q12HR T OPICAL (CKD) Clotrimazole 1 XIANG BID TOPICAL (CKD) Pantoprazole 40 MG Q12HR PO Vitamin B Complex/Vitamin C 1 TAB BID PO (CKD) Zolpidem Tartrate 5 MG BEDTIME PRN PRN PO Ferric Sodium Gluconate Complex 125 MG Q24H IV ( DC) Sodium Chloride 100 ML Tramadol HCl 100 MG TID PRN PRN PO Citalopram Hydrobromide 40 MG DAILY PO Lisinopril 20 MG DAILY PO (DC) Metoprolol Tartrate 25 MG BID PO Sucralfate 1 GM QID PO Physical Exam General appearance: alert, awake, oriented Cardiovascular: normal capillary refill, regular rate rhythm Respiratory: no distress, symmetric expansion Neuro/REFERRAL COORDINATOR: alert, oriented X 3, CN II-XII intact, EOMI, PERRL, normal reflexes, normal speech, reflexes equal bilat, no motor de ficits, no sensory deficits Results Findings/Data: Laboratory Tests 09/01 09/01 09/01 09/01 08/31 1303 1303 0730 0400 2329 Chemistry Sodium (137 - 145 MMOL/L) 142 144 143 142 Potassium (3.5 - 5.1 MMOL/L) 4.1 Chloride (98 - 107 MMOL/L) 112 H Carbon Dioxide (22 - 30 MMOL/L) 25 BUN (7 - 17 MG/DL) 13 Creatinine (0.52 - 1.04 MG/DL) 0.70 Glomerular Filtr Rate > 60 Glucose (74 - 106 MG/DL) 198 H Calcium (8.4 - 10.2 MG/DL) 8.8 Cortisol Baseline (1.7 - 22.7 ug/dL) 9.19 08/319 Chemistry Sodium (137 - 145 MMOL/L) 141 Laboratory Tests 09/01 0400 Coagulation INR (0.8 - 1.1) 1.0 APTT (22.0 - 33.0 SECONDS) 25.0 PT Patient/Control Mix (9.6 - 11.6 SECONDS) 10. 1 Laboratory Tests 09/01 0400 Hematology WBC (3.8 - 9.8 K/MM3) 11.7 H RBC (3.58 - 4.97 M/MM3) 3.59 Hgb (11.2 - 14.9 G/DL) 8.0 L Hct (33.2 - 43.5 %) 26.8 L MCV (80.7 - 99.1 fL) 75 L MCH (27.0 - 34.1 pg) 22.3 L MCHC (32.2 - 35.7 %) 29.9 L RDW (12.1 - 15.2 %) 19.5 H Plt Count (129 - 368 K/MM3) 301 MPV (7.4 - 10.4 fl) 9.4 Neut % (Auto) (43 - 75 %) 71.6 Lymph % (Auto) (14 - 44 %) 18.1 Merrick % (Auto) (4 - 13 %) 8.3 Eos % (Auto) (0 - 6 %) 0.5 Baso % (Auto) (0 - 2 %) 0.1 Neut # (Auto) (2.0 - 7.6 K/mm3) 8.40 H Lymph # (Auto) (1.0 - 3.8 K/mm3) 2.13 Merrick # (Auto) (0.1 - 0.8 K/mm3) 0.98 H Eos # (Auto) (0.0 - 0.2 K/mm3) 0.06 Baso # (Auto) (0.0 - 0.2 K/mm3) 0.01 Immature Gran % (0.0 - 2.0 %) 1.4 Nucleated RBC % (0 - 1.0 %) 0.0 Nucleated RBCs # (Man) (0.0 - 0.1 K/mm3) 0.00 Laboratory Tests 09/01 09/01 08/31 08/31 08/31 1300 0835 2320 1955 1735 Urines Ur Specific Beatty (1.003 - 1.030) 1.020 1.015 1.005 1.010 1.015 Diagnosis, Assessment Plan Free Text A P: A: 38 year old female now POD#2 from transspheno idal resection of pituitary adenoma P: Hold off on lumbar drain Will continue to monitor one more day in ICU. Ca n transfer out tomorrow Continue serial Na, urine spec grav and cortisol until tomorrow PT/OT Pain medication as needed Ozzy Viera 09/02/18 1348: Diagnosis, Assessment Plan Additional comments: Agree with above Electronically Signed by Tanya Rodriguez NP on 08/20 06/07 at 1557 RPT #:[id number] END OF REPORT 2018-09-01 15:54:00-00:00 [facility] ([facility]) Neurosurgical Progress Note REPORT#:[id number] REPORT STATUS: Signed DATE:09/01/18 TIME: 1554 PATIENT: LEIGH FRYE UNIT #: [id number] [address]BED: [address] : 80 AGE: 38 SEX: F ATTEND: Johana Mckoy MD ADM AUTHOR: Tanya Rodriguez NP * ALL edits or amendments must be made on the [employer]/computer document * Tanya Rodriguez NP 09/01/18 1554: Subjective Comments: Nasal drainage slowed significantly last night. Will plan on holding off on lumbar drain for now. Will continue to monitor Objective General VS/I O: Vital Signs Date Temp Pulse Resp B/P B/P Mean Pulse Ox FiO2 08/31-09/01 97.4-98.3 73-132 16-45 104-129/51-9 1 73-119 94-99 24 hour I O ending at 0700: 09/01 0700 08/31 1900 Intake Total 3030.00 2490.00 Output Total 4140 1065 Balance -1110.00 1425.00 Intake, IV 1350.00 1010.00 Intake, Oral 1680 1480 Number 1 Bowel Movements Output, Urine 4140 1065 Patient 186.88 kg Weight Medications: Active Meds + DC'd Last 24 Hrs Lisinopril 10 MG DAILY PO Fludrocortisone Acetate 0.1 MG BID PO Polyethylene Glycol 17 GM DAILY PO Lactated Ringer's 1,000 ML ONCE ONE IV Desmopressin Acetate 2 MCG ONCE ONE IV (DC) Sodium Chloride 500 ML BOLUS ONCE ONE IV (DC) Trazodone HCl 50 MG BEDTIME PRN PRN PO Docusate Sodium 100 MG BID PO Mupirocin 1 APPLIC BID NASAL Hydrocodone Bitart/Acetaminophen 1 TAB Q4H PRN P RN PO Hydrocodone Bitart/Acetaminophen 2 TAB Q4H PRN P RN PO Phenol 1 SPRAY Q4H PRN PRN MM Ampicillin Sodium/Sulbactam Sodium 3,000 MG Q6HR IV Sodium Chloride 100 ML Acetaminophen 650 MG Q4H PRN PRN PO Morphine Sulfate 4 MG Q4H PRN PRN IV Ondansetron HCl 4 MG Q4H PRN PRN IV Sodium Chloride 1,000 ML .Q20H IV [place] Oil/Swedish Balsam/Trypsin 1 XIANG Q12HR T OPICAL (CKD) Clotrimazole 1 XIANG BID TOPICAL (CKD) Pantoprazole 40 MG Q12HR PO Vitamin B Complex/Vitamin C 1 TAB BID PO (CKD) Zolpidem Tartrate 5 MG BEDTIME PRN PRN PO Ferric Sodium Gluconate Complex 125 MG Q24H IV ( DC) Sodium Chloride 100 ML Tramadol HCl 100 MG TID PRN PRN PO Citalopram Hydrobromide 40 MG DAILY PO Lisinopril 20 MG DAILY PO (DC) Metoprolol Tartrate 25 MG BID PO Sucralfate 1 GM QID PO Physical Exam General appearance: alert, awake, oriented Cardiovascular: normal capillary refill, regular rate rhythm Respiratory: no distress, symmetric expansion Neuro/REFERRAL COORDINATOR: alert, oriented X 3, CN II-XII intact, EOMI, PERRL, normal reflexes, normal speech, reflexes equal bilat, no motor de ficits, no sensory deficits Results Findings/Data: Laboratory Tests 09/01 09/01 09/01 09/01 08/31 1303 1303 0730 0400 2329 Chemistry Sodium (137 - 145 MMOL/L) 142 144 143 142 Potassium (3.5 - 5.1 MMOL/L) 4.1 Chloride (98 - 107 MMOL/L) 112 H Carbon Dioxide (22 - 30 MMOL/L) 25 BUN (7 - 17 MG/DL) 13 Creatinine (0.52 - 1.04 MG/DL) 0.70 Glomerular Filtr Rate > 60 Glucose (74 - 106 MG/DL) 198 H Calcium (8.4 - 10.2 MG/DL) 8.8 Cortisol Baseline (1.7 - 22.7 ug/dL) 9.19 08/31 2039 Chemistry Sodium (137 - 145 MMOL/L) 141 Laboratory Tests 09/01 0400 Coagulation INR (0.8 - 1.1) 1.0 APTT (22.0 - 33.0 SECONDS) 25.0 PT Patient/Control Mix (9.6 - 11.6 SECONDS) 10. 1 Laboratory Tests 09/01 0400 Hematology WBC (3.8 - 9.8 K/MM3) 11.7 H RBC (3.58 - 4.97 M/MM3) 3.59 Hgb (11.2 - 14.9 G/DL) 8.0 L Hct (33.2 - 43.5 %) 26.8 L MCV (80.7 - 99.1 fL) 75 L MCH (27.0 - 34.1 pg) 22.3 L MCHC (32.2 - 35.7 %) 29.9 L RDW (12.1 - 15.2 %) 19.5 H Plt Count (129 - 368 K/MM3) 301 MPV (7.4 - 10.4 fl) 9.4 Neut % (Auto) (43 - 75 %) 71.6 Lymph % (Auto) (14 - 44 %) 18.1 Merrick % (Auto) (4 - 13 %) 8.3 Eos % (Auto) (0 - 6 %) 0.5 Baso % (Auto) (0 - 2 %) 0.1 Neut # (Auto) (2.0 - 7.6 K/mm3) 8.40 H Lymph # (Auto) (1.0 - 3.8 K/mm3) 2.13 Merrick # (Auto) (0.1 - 0.8 K/mm3) 0.98 H Eos # (Auto) (0.0 - 0.2 K/mm3) 0.06 Baso # (Auto) (0.0 - 0.2 K/mm3) 0.01 Immature Gran % (0.0 - 2.0 %) 1.4 Nucleated RBC % (0 - 1.0 %) 0.0 Nucleated RBCs # (Man) (0.0 - 0.1 K/mm3) 0.00 Laboratory Tests 09/01 09/01 08/31 08/31 08/31 1300 0835 2320 1955 1735 Urines Ur Specific Beatty (1.003 - 1.030) 1.020 1.015 1.005 1.010 1.015 Diagnosis, Assessment Plan Free Text A P: A: 38 year old female now POD#2 from transspheno idal resection of pituitary adenoma P: Hold off on lumbar drain Will continue to monitor one more day in ICU. Ca n transfer out tomorrow Continue serial Na, urine spec grav and cortisol until tomorrow PT/OT Pain medication as needed Ozzy Viera 09/02/18 1348: Diagnosis, Assessment Plan Additional comments: Agree with above Electronically Signed by Tanya Rodriguez NP on 08/20 06/07 at 1557 Electronically Signed by Ozzy Viera MD on 08/20 07/08 at 1349 RPT #[id number] END OF REPORT 2018-09-01 12:49:00-00:00 [id number] [address] PATIENT NAME: LEIGH FRYE ADMIT DATE: 08/25/18 ACCOUNT NO: [id number] ROOM NO: Z.504 AGE: 38 REPORT TYPE: PROGRESS NOTE SEX: F ADMITTING PHYSICIAN:Jani Mckoy MD ATTENDING PHYSICIAN:Jani Mckoy MD DATE: ADDENDUM TO GENERAL PROGRESS NOTE This is a 38-year-old female presented with head ache, has pituitary adenoma, underwent resection 2 days ago. Immediate postop , 2 issues. She had CSF leak more yesterday, then overnight it has slowed salvatore n. Initially, plans were made for lumbar drain, which is put on hold f or the time being. If she continues to improve, may not need it. 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 Urine output more than 4000 overnight on regul ar DDAVP, may need daily dose for next several days. She had a dose day before also. Sodium at 144, we will watch it closely and also her aldosterone level is less than ____, it is supplemented. Blood pressure is staying normal and we can cut back o n the dose of Prinivil. The patient is alert, oriented, significant decrease in headache. No bleeding. Her hearing and her vision are stable. Nose pain is in control. No neck pain. No shortness of breath or cough. No nausea, vomitin g, or diarrhea. In view of this large volume urine output, we will leave th e Rubin in for monitoring and correct intake and output. She is moving all extremities. No other significant events. Her hemoglobin is 8 g%, has received iro n supplementation and we will continue with Epogen. Her baseline hemoglobin is 8.7, white cell count 11.7, and platelets are 301. Sodium is stable between 139 and 144, potassium is stable. Blood sugar is less than 200, maintain i nsulin drip ____ 0.7. The patient is moving all extremities and lungs are clear. Abdomen is benign. Overall, satisfactory progress. Discussed with fred brar supervisor industrial garment and neurosurgeon. Medications are reviewed. At this point, continue Unasyn for sinus prophylaxis and plan t o keep on antibiotic and nasal pack as it is removed and there is no more CSF leak. 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 Metanephrines reported and those are in the plasma were normal. TSH and thyroid v alues are normal. The patient has both iron deficiency and B12 deficiency, the y have been supplemented. Dictated By: Jani Mckoy MD WT: PN:GISSELEL/YONATHAN/JERSON Conf#: [id number]/DID#: [id number] Authenticated by Jani Mckoy MD On 06:04:48 AM PATIENT NAME: LEIGH FRYE at 0605 PATIENT NAME: LEIGH FRYE 2018-09-01 11:11:00-00:00 [facility] ([facility]) DT PROGRESS NOTE REPORT#:[id number] REPORT STATUS: Signed DATE:09/01/18 TIME: 1111 PATIENT: LEIGH FRYE UNIT #: [id number] [address]BED: [address] : 80 AGE: 38 SEX: F ATTEND: Johana Mckoy MD ADM AUTHOR: Jani Mckoy MD * ALL edits or amendments must be made on the [employer] document * Progress Note Progress Note Vital Signs Date Time Temp Pulse Resp B/P B/P Pulse O2 O2 F low FiO2 Mean Ox Delivery Rate 09/01 0800 98.3 09/01 0717 78 18 123/59 85 96 09/01 0617 79 16 116/55 79 97 09/01 0517 82 19 128/60 86 97 09/01 0417 82 18 118/73 89 96 09/01 0400 97.4 09/01 0317 80 17 112/59 78 96 09/01 0217 78 18 119/56 81 95 09/01 0117 79 16 112/52 75 96 09/01 0017 82 28 119/63 87 97 09/01 0000 97.7 08/31 2317 81 34 104/51 73 98 08/31 2230 18 97 08/31 2217 127 121/91 98 96 08/31 2117 132 19 129/88 103 96 08/31 2016 129 21 119 06/12 2000 97.6 06 2000 126 17 94 08/31 1945 128 22 97 08/31 1917 88 115/55 79 95 08/31 1900 85 94 06/ 1817 83 119/58 84 94 / 1717 84 24 126/58 83 94 / 1700 85 26 96 / 1617 75 23 125/58 84 96 / 1545 77 39 / 1541 97.8 08/31 1519 76 34 123/64 88 97 08/31 1500 77 30 98 08/31 1430 80 28 98 08/31 1400 83 21 98 06/12 1330 75 20 95 06/12 1300 79 19 141/65 94 97 06/12 1200 98.3 06/12 1200 78 21 138/62 88 97 06/12 1143 84 20 161/74 106 06/12 1000 71 21 134/60 86 97 06/12 0900 70 20 138/57 78 96 06/12 0800 98.3 06/12 0800 69 23 116/56 81 97 06/12 0700 69 19 102/67 78 93 06/12 0600 80 31 114/56 80 97 06/12 0500 73 20 139/64 92 96 06/12 0400 97.7 06/12 0400 74 123/59 85 95 06/12 0300 76 16 143/62 89 92 06/12 0200 83 18 162/74 106 92 06/12 0100 79 20 148/65 93 97 06/12 0000 97.6 06/12 0000 90 19 152/67 97 99 06/11 2300 87 19 163/75 108 96 06/11 2200 77 17 155/71 102 100 06/11 2130 77 18 171/77 111 98 06/11 2115 79 25 169/77 111 98 06/11 2100 77 17 173/78 112 97 06/11 2045 77 15 178/80 115 98 06/11 2030 82 37 154/72 104 98 06/11 2014 82 17 177/79 114 96 06/11 1999 97.6 06/11 2000 81 18 170/79 113 98 06/11 1945 80 17 172/79 113 98 06/11 1930 85 17 175/79 113 98 06/11 1915 83 17 168/77 111 97 06/11 1900 84 17 163/78 111 98 06/11 1730 83 28 171/77 110 96 06/11 1715 83 20 176/80 115 94 06/11 1700 82 17 174/77 111 95 06/11 1645 80 22 156/70 100 96 06/11 1630 79 14 171/79 113 96 06/11 1615 Face mist 10.701164 tent 06/11 1615 77 16 169/77 111 95 06/11 1600 98.3 06/11 1600 74 19 152/80 110 06/11 1545 Face mist 10.394148 tent 06/11 1545 75 14 153/76 107 06/11 1533 75 18 151/70 100 06/11 1525 97.7 06/11 1500 79 16 161/68 100 Face mist 10.097748 tent 08/30 1450 76 16 168/80 100 Face mist 10.91167 0 tent 08/30 1440 74 16 156/76 100 Face mist 10.968255 tent 11 1430 98.0 75 16 149/73 100 Face mist 10.0 70786 tent Laboratory Tests: 09/01 09/01 09/01 08/31 08/31 0835 0730 0400 2329 2320 Chemistry Sodium (137 - 145 MMOL/L) 144 143 142 Potassium (3.5 - 5.1 MMOL/L) 4.1 Chloride (98 - 107 MMOL/L) 112 H Carbon Dioxide (22 - 30 MMOL/L) 25 BUN (7 - 17 MG/DL) 13 Creatinine (0.52 - 1.04 MG/DL) 0.70 Glomerular Filtr Rate > 60 Glucose (74 - 106 MG/DL) 198 H Calcium (8.4 - 10.2 MG/DL) 8.8 Coagulation INR (0.8 - 1.1) 1.0 APTT (22.0 - 33.0 SECONDS) 25.0 PT Patient/Control Mix (9.6 - 11.6 10.1 SECONDS) Hematology WBC (3.8 - 9.8 K/MM3) 11.7 H RBC (3.58 - 4.97 M/MM3) 3.59 Hgb (11.2 - 14.9 G/DL) 8.0 L Hct (33.2 - 43.5 %) 26.8 L MCV (80.7 - 99.1 fL) 75 L MCH (27.0 - 34.1 pg) 22.3 L MCHC (32.2 - 35.7 %) 29.9 L RDW (12.1 - 15.2 %) 19.5 H Plt Count (129 - 368 K/MM3) 301 MPV (7.4 - 10.4 fl) 9.4 Neut % (Auto) (43 - 75 %) 71.6 Lymph % (Auto) (14 - 44 %) 18.1 Merrick % (Auto) (4 - 13 %) 8.3 Eos % (Auto) (0 - 6 %) 0.5 Baso % (Auto) (0 - 2 %) 0.1 Neut # (Auto) (2.0 - 7.6 K/mm3) 8.40 H Lymph # (Auto) (1.0 - 3.8 K/mm3) 2.13 Merrick # (Auto) (0.1 - 0.8 K/mm3) 0.98 H Eos # (Auto) (0.0 - 0.2 K/mm3) 0.06 Baso # (Auto) (0.0 - 0.2 K/mm3) 0.01 Immature Gran % (0.0 - 2.0 %) 1.4 Nucleated RBC % (0 - 1.0 %) 0.0 Nucleated RBCs # (Man) (0.0 - 0.1 K/mm3) 0.00 Urines Ur Specific Beatty (1.003 - 1.030) 1.015 1.00 5 08/31 1955 1735 1535 Chemistry Sodium (137 - 145 MMOL/L) 141 139 Urines Ur Specific Beatty (1.003 - 1.030) 1.010 1.015 Home Medications: LISINOPRIL/HCTZ (ZESTORETIC 20/25 MG) 1 TAB PO D AILY ESCITALOPRAM (LEXAPRO) 40 MG PO DAILY ISOSORBIDE MONONITRATE SR (IMDUR) 30 MG PO DAILY FAMOTIDINE (PEPCID) 20 MG PO BID SUMAtriptan (IMITREX) 50 MG PO ONCEPRN ONDANSETRON ODT (ZOFRAN ODT) 4 MG PO BID ATORVASTATIN (LIPITOR) 40 MG PO BEDTIME hydrOXYzine HCL (ATARAX) 50 MG PO DAILY PRN PRN SLEEP KETOROLAC (TORADOL) 10 MG PO Q6H PRN PRN PAIN METOPROLOL TARTRATE (LOPRESSOR) 25 MG PO BID PANTOPRAZOLE DR (PROTONIX) 40 MG PO DAILY SUCRALFATE (CARAFATE) 1 GM PO QID traMADol (ULTRAM) 50 MG PO TID PRN PRN PAIN RIVAROXABAN (XARELTO) 20 MG PO DAILY Recent Impressions: CAT SCAN - CT HD/BR W W/O CONT 08/29 1720 Report Impression - Status: SIGNED Entered: 08/29/2018 1902 IMPRESSION: 1. Pituitary macroadenoma. Further evaluation wi th MRI may be helpful. 2. Old right orbital blowout fracture with sublu xation of the inferior rectus muscle. Impression By: [email or web address] - Pranav Chaudhari M.D. CAT SCAN - CT HEAD/BRAIN W/O CONT 08/31 0505 Report Impression - Status: SIGNED Entered: 08/31/2018 0820 IMPRESSION: Interval postoperative changes of a transsphenoi [place] resection of pituitary tumor with expected changes seen in th e region. Otherwise, no other intracranial abnormality. Impression By: [email or web address] - Keri Avila MD 09/01 09/01 08/31 08/31 08/31 0730 0400 [id number] 2039 1535 Chemistry Sodium (137 - 145 MMOL/L) 144 143 142 141 139 Potassium (3.5 - 5.1 MMOL/L) 4.1 Chloride (98 - 107 MMOL/L) 112 H Carbon Dioxide (22 - 30 MMOL/L) 25 BUN (7 - 17 MG/DL) 13 Creatinine (0.52 - 1.04 MG/DL) 0.70 Glomerular Filtr Rate > 60 Glucose (74 - 106 MG/DL) 198 H Calcium (8.4 - 10.2 MG/DL) 8.8 09/01 0400 Hematology WBC (3.8 - 9.8 K/MM3) 11.7 H RBC (3.58 - 4.97 M/MM3) 3.59 Hgb (11.2 - 14.9 G/DL) 8.0 L Hct (33.2 - 43.5 %) 26.8 L MCV (80.7 - 99.1 fL) 75 L MCH (27.0 - 34.1 pg) 22.3 L MCHC (32.2 - 35.7 %) 29.9 L RDW (12.1 - 15.2 %) 19.5 H Plt Count (129 - 368 K/MM3) 301 MPV (7.4 - 10.4 fl) 9.4 Neut % (Auto) (43 - 75 %) 71.6 Lymph % (Auto) (14 - 44 %) 18.1 Merrick % (Auto) (4 - 13 %) 8.3 Eos % (Auto) (0 - 6 %) 0.5 Baso % (Auto) (0 - 2 %) 0.1 Neut # (Auto) (2.0 - 7.6 K/mm3) 8.40 H Lymph # (Auto) (1.0 - 3.8 K/mm3) 2.13 Merrick # (Auto) (0.1 - 0.8 K/mm3) 0.98 H Eos # (Auto) (0.0 - 0.2 K/mm3) 0.06 Baso # (Auto) (0.0 - 0.2 K/mm3) 0.01 Immature Gran % (0.0 - 2.0 %) 1.4 Nucleated RBC % (0 - 1.0 %) 0.0 Nucleated RBCs # (Man) (0.0 - 0.1 K/mm3) 0.00 09/01 0400 Coagulation INR (0.8 - 1.1) 1.0 APTT (22.0 - 33.0 SECONDS) 25.0 PT Patient/Control Mix (9.6 - 11.6 SECONDS) 10. 1 Current Medications Sig/Roshan Start time Last Medication Dose Route Stop Time Status Admin Fludrocortisone 0.1 MG BID 09/01 2100 AC 09/01 Acetate PO 10/01 2100 0933 Polyethylene Glycol 17 GM DAILY 09/01 0925 AC 0 09/01 PO 10/01 0926 1027 Lactated Ringer's 1,000 ML ONCE ONE 09/01 0715 AC 09/01 IV 09/02 0814 0816 Desmopressin Acetate 2 MCG ONCE ONE 09/01 0130 DC 09/01 IV 09/01 0131 0329 Sodium Chloride 500 ML BOLUS ONCE ONE 08/31 195 0 DC 08/31 IV 08/31 2019 1954 Trazodone HCl 50 MG BEDTIME PRN PRN 08/31 1635 AC 08/31 PO 09/30 1636 2011 Docusate Sodium 100 MG BID 08/30 2099 AC 09/01 PO 09/29 2100 0933 Mupirocin 1 APPLIC BID 08/30 2100 AC 08/31 NASAL 09/04 2101 0806 Hydrocodone Bitart/ 1 TAB Q4H PRN PRN 08/30 201 5 AC Acetaminophen PO 09/30 2015 Hydrocodone Bitart/ 2 TAB Q4H PRN PRN 08/30 201 5 AC 09/01 Acetaminophen PO 09/30 2015 1027 Phenol 1 SPRAY Q4H PRN PRN 08/30 1820 AC MM 09/29 1821 Ampicillin Sodium/ 3,000 MG Q6HR 08/30 1630 AC 09/01 Sulbactam Sodium IV 09/09 1759 0821 Sodium Chloride 100 ML Acetaminophen 650 MG Q4H PRN PRN 08/30 1525 AC PO 09/29 1446 Morphine Sulfate 4 MG Q4H PRN PRN 08/30 1525 AC 09/01 IV 09/29 1522 0934 Ondansetron HCl 4 MG Q4H PRN PRN 08/30 1525 AC 08/30 IV 09/29 1526 1529 Sodium Chloride 1,000 ML .Q20H 08/30 1525 AC 0 09/01 IV 09/29 1446 0933 [place] Oil/Swedish 1 XIANG Q12HR 08/29 2100 CKD 09/01 Balsam/Trypsin TOPICAL 09/28 210 0817 Clotrimazole 1 XIANG BID 08/29 2100 CKD 09/01 TOPICAL 09/28 210 0818 Pantoprazole 40 MG Q12HR 08/29 2100 AC 09/01 PO 09/28 210 0817 Vitamin B Complex/ 1 TAB BID 08/28 2100 CKD Vitamin C PO 09/27 210 0933 Zolpidem Tartrate 5 MG BEDTIME PRN PRN 08/28 1 940 AC 08/31 PO 09/27 1941 2111 Ferric Sodium 125 MG Q24H 08/27 0900 DC 09/01 Gluconate Complex IV 09/01 0959 0821 Sodium Chloride 100 ML Tramadol HCl 100 MG TID PRN PRN 08/26 1120 AC 0 08/30 PO 09/25 1115 2059 Citalopram 40 MG DAILY 08/26 09 AC 09/01 Hydrobromide PO 09/25 0901 0933 Hydrochlorothiazide 25 MG DAILY 08/26 09 DC 0 08/31 PO 09/25 0901 1150 Lisinopril 20 MG DAILY 08/26 09 AC 09/01 PO 09/25 0901 0933 Metoprolol Tartrate 25 MG BID 08/26 09 AC PO 09/25 0901 0817 Sucralfate 1 GM QID 08/26 09 AC 09/01 PO 09/25 0901 0933 see dictation Electronically Signed by Jani Mckoy MD 09/01/18 at 1113 RPT #:[id number] END OF REPORT 2018-09-01 09:10:00-00:00 [facility] REPORT#:[id number] REPORT STATUS: Signed DATE:09/01/18 TIME: 909 PATIENT: LEIGH FRYE UNIT #: [id number] ROOM/BED: SI09-A : 80 AGE: 38 SEX: F ATTEND: Johana Mckoy MD ADM AUTHOR: DOMINGUEZ CORTES * ALL edits or amendments must be made on the BioST[employer]/computer document * Subjective Comments: DDAVP x 1 overnight. So far this morning UOP 50 cc/hr. Less nasal drainage, lumbar drain on hold. Hemody namically stable. Continue q 8hr sodium, ua specific gravity, cortisol levels. discussed with neurosx crnp Review of Systems ROS Respiratory: Denies: SOB. Cardiovascular: Denies: chest pain. GI: Denies: abdominal pain, nausea, rectal pain. Additional notes: complaining of general body pain. constipation Objective General VS/I O Last Documented: Result Date Time Temp 36.8 09/01 0800 Pulse Ox 96 09/01 07 B/P 123/59 09/01 0717 B/P Mean 85 09/01 0717 Pulse 78 09/01 0717 Resp 18 09/01 07 O2 Delivery Face mist tent 08/30 1615 O2 Flow Rate 10.087010 08/30 1615 24 hour I O ending at 0700: 09/01 0700 08/31 1900 Intake Total 3030.00 2490.00 Output Total 4140 1065 Balance -1110.00 1425.00 Intake, IV 1350.00 1010.00 Intake, Oral 1680 1480 Number 1 Bowel Movements Output, Urine 4140 1065 Patient 186.88 kg Weight Medications: Active Meds + DC'd Last 24 Hrs Fludrocortisone Acetate 0.1 MG BID PO Lactated Ringer's 1,000 ML ONCE ONE IV Desmopressin Acetate 2 MCG ONCE ONE IV (DC) Sodium Chloride 500 ML BOLUS ONCE ONE IV (DC) Trazodone HCl 50 MG BEDTIME PRN PRN PO Docusate Sodium 100 MG BID PO Mupirocin 1 APPLIC BID NASAL Hydrocodone Bitart/Acetaminophen 1 TAB Q4H PRN P RN PO Hydrocodone Bitart/Acetaminophen 2 TAB Q4H PRN P RN PO Phenol 1 SPRAY Q4H PRN PRN MM Ampicillin Sodium/Sulbactam Sodium 3,000 MG Q6HR IV Sodium Chloride 100 ML Acetaminophen 650 MG Q4H PRN PRN PO Morphine Sulfate 4 MG Q4H PRN PRN IV Ondansetron HCl 4 MG Q4H PRN PRN IV Sodium Chloride 1,000 ML .Q20H IV [place] Oil/Swedish Balsam/Trypsin 1 XIANG Q12HR T OPICAL (CKD) Clotrimazole 1 XIANG BID TOPICAL (CKD) Pantoprazole 40 MG Q12HR PO Vitamin B Complex/Vitamin C 1 TAB BID PO (CKD) Zolpidem Tartrate 5 MG BEDTIME PRN PRN PO Ferric Sodium Gluconate Complex 125 MG Q24H IV Sodium Chloride 100 ML Tramadol HCl 100 MG TID PRN PRN PO Citalopram Hydrobromide 40 MG DAILY PO Hydrochlorothiazide 25 MG DAILY PO (DC) Lisinopril 20 MG DAILY PO Metoprolol Tartrate 25 MG BID PO Sucralfate 1 GM QID PO Physical Exam General appearance: alert, awake, oriented, no a cute distress, no respiratory distress ENT: nasal packing Neck: full range of motion, non-tender, no JVD Cardiovascular: normal heart sounds, normal S1 S 2, normal rate and rhythm, no murmur Respiratory/Chest: aerating well, clear to auscultation, symmetric expansion, no distress Abdomen: distended, soft, normal bowel sounds, n o guarding Genitourinary: rubin, urine Extremities: moves all, no clubbing, no cyanosis , no edema Musculoskeletal: full range of motion, normal in spection Neuro/REFERRAL COORDINATOR: alert, oriented X 3, no motor deficit s, no sensory deficits [place] Coma Score: [place] Coma Score: Response Value Patient intubated? no [place] eyes: eyes open spontaneously 4 Gwen speech: oriented 5 Gwen motor: obeys commands 6 Total 15 Results Findings/Data: Laboratory Tests 09/01/18 0730: [Embedded Image Not Available] 09/01/18 0400: [Embedded Image Not Available] 08/31/18 2329: [Embedded Image Not Available] 08/31/18 2039: [Embedded Image Not Available] 08/31/18 1535: [Embedded Image Not Available] 08/31/18 1050: [Embedded Image Not Available] Laboratory Tests 09/01 09/01 08/31 08/31 08/31 0730 0400 4560 0380 1535 Chemistry Sodium (137 - 145 MMOL/L) 144 143 142 141 139 Potassium (3.5 - 5.1 MMOL/L) 4.1 Chloride (98 - 107 MMOL/L) 112 H Carbon Dioxide (22 - 30 MMOL/L) 25 BUN (7 - 17 MG/DL) 13 Creatinine (0.52 - 1.04 MG/DL) 0.70 Glomerular Filtr Rate > 60 Glucose (74 - 106 MG/DL) 198 H Calcium (8.4 - 10.2 MG/DL) 8.8 08/31 1050 Chemistry Sodium (137 - 145 MMOL/L) 140 Laboratory Tests 09/01 0400 Coagulation INR (0.8 - 1.1) 1.0 APTT (22.0 - 33.0 SECONDS) 25.0 PT Patient/Control Mix (9.6 - 11.6 SECONDS) 10. 1 Laboratory Tests 09/01 0400 Hematology WBC (3.8 - 9.8 K/MM3) 11.7 H RBC (3.58 - 4.97 M/MM3) 3.59 Hgb (11.2 - 14.9 G/DL) 8.0 L Hct (33.2 - 43.5 %) 26.8 L MCV (80.7 - 99.1 fL) 75 L MCH (27.0 - 34.1 pg) 22.3 L MCHC (32.2 - 35.7 %) 29.9 L RDW (12.1 - 15.2 %) 19.5 H Plt Count (129 - 368 K/MM3) 301 MPV (7.4 - 10.4 fl) 9.4 Neut % (Auto) (43 - 75 %) 71.6 Lymph % (Auto) (14 - 44 %) 18.1 Merrick % (Auto) (4 - 13 %) 8.3 Eos % (Auto) (0 - 6 %) 0.5 Baso % (Auto) (0 - 2 %) 0.1 Neut # (Auto) (2.0 - 7.6 K/mm3) 8.40 H Lymph # (Auto) (1.0 - 3.8 K/mm3) 2.13 Merrick # (Auto) (0.1 - 0.8 K/mm3) 0.98 H Eos # (Auto) (0.0 - 0.2 K/mm3) 0.06 Baso # (Auto) (0.0 - 0.2 K/mm3) 0.01 Immature Gran % (0.0 - 2.0 %) 1.4 Nucleated RBC % (0 - 1.0 %) 0.0 Nucleated RBCs # (Man) (0.0 - 0.1 K/mm3) 0.00 Laboratory Tests 09/01 08/31 08/31 08/31 0835 2320 1955 1735 Urines Ur Specific Beatty (1.003 - 1.030) 1.015 1.005 1.010 1.015 Results: labs reviewed, india l signs stable, rhythm peronally rev'd, current med profile rev'd Treatment Prophylaxis Treatment Prophylaxis Indication for urinary catheter: accurate I/O an d crit ill Oxygen: room air Lines: peripheral Anti-arrhythmics: metoprolol Anti-infectives: ampicillin Diagnosis, Assessment Plan Problem List/A P: 1. Status post transsphenoidal pituitary resect ion s/p resection of pituitary tumor strict i/o with rubin catheter cortisol, serum na, urine specific gravity q8h DDAVP prn, for concern for diabetes insipidus neuro checks hourly primary managment per neurosx team Free Text A P: f/u 35 mins Orders: Procedure Date/time Status UA SPECIFIC GRAVITY 09/02 2100 Active SODIUM 09/02 2100 Active CORTISOL 09/02 2100 Active UA SPECIFIC GRAVITY 09/02 1300 Active SODIUM 09/02 1300 Active CORTISOL 09/02 1300 Active UA SPECIFIC GRAVITY 09/02 0500 Active SODIUM 09/02 0500 Active CORTISOL 09/02 0500 Active UA SPECIFIC GRAVITY 09/01 2100 Active SODIUM 09/01 2100 Active CORTISOL 09/01 2100 Active UA SPECIFIC GRAVITY 09/01 1300 Active SODIUM 09/01 1300 Active CORTISOL 09/01 1300 Active RT: Oxygen Per Protocol 09/01 940 Complete RT: Extubation 09/01 940 Complete at 1222 RPT #:[id number] END OF REPORT 2018-09-01 09:10:00-00:00 [facility] Critical Care Progress Note REPORT#:[id number] REPORT STATUS: Signed DATE:09/01/18 TIME: 909 PATIENT: LEIGH FRYE UNIT #: [id number] ROOM/BED: [facility]-A : 80 AGE: 38 SEX: F ATTEND: Tho Mckoy MD ADM AUTHOR: DOMINGUEZ CORTES * ALL edits or amendments must be made on the BioST[employer]/computer document * Prakash Cortes 09/01/18 0910: Subjective Comments: DDAVP x 1 overnight. So far this morning UOP 50 cc/hr. Less nasal drainage, lumbar drain on hold. Hemody namically stable. Continue q 8hr sodium, ua specific gravity, cortisol levels. discussed with neurosx crnp Review of Systems ROS Respiratory: Denies: SOB. Cardiovascular: Denies: chest pain. GI: Denies: abdominal pain, nausea, rectal pain. Additional notes: complaining of general body pain. constipation Objective General VS/I O Last Documented: Result Date Time Temp 36.8 09/01 0800 Pulse Ox 96 09/01 07 B/P 123/59 09/01 0717 B/P Mean 85 09/01 07 Pulse 78 09/01 0717 Resp 18 09/01 0717 O2 Delivery Face mist tent 08/30 1615 O2 Flow Rate 10.479375 08/30 1615 24 hour I O ending at 0700: 09/01 0700 08/31 1900 Intake Total 3030.00 2490.00 Output Total 4140 1065 Balance -1110.00 1425.00 Intake, IV 1350.00 1010.00 Intake, Oral 1680 1480 Number 1 Bowel Movements Output, Urine 4140 1065 Patient 186.88 kg Weight Medications: Active Meds + DC'd Last 24 Hrs Fludrocortisone Acetate 0.1 MG BID PO Lactated Ringer's 1,000 ML ONCE ONE IV Desmopressin Acetate 2 MCG ONCE ONE IV (DC) Sodium Chloride 500 ML BOLUS ONCE ONE IV (DC) Trazodone HCl 50 MG BEDTIME PRN PRN PO Docusate Sodium 100 MG BID PO Mupirocin 1 APPLIC BID NASAL Hydrocodone Bitart/Acetaminophen 1 TAB Q4H PRN P RN PO Hydrocodone Bitart/Acetaminophen 2 TAB Q4H PRN P RN PO Phenol 1 SPRAY Q4H PRN PRN MM Ampicillin Sodium/Sulbactam Sodium 3,000 MG Q6HR IV Sodium Chloride 100 ML Acetaminophen 650 MG Q4H PRN PRN PO Morphine Sulfate 4 MG Q4H PRN PRN IV Ondansetron HCl 4 MG Q4H PRN PRN IV Sodium Chloride 1,000 ML .Q20H IV [place] Oil/Swedish Balsam/Trypsin 1 XIANG Q12HR T OPICAL (CKD) Clotrimazole 1 XIANG BID TOPICAL (CKD) Pantoprazole 40 MG Q12HR PO Vitamin B Complex/Vitamin C 1 TAB BID PO (CKD) Zolpidem Tartrate 5 MG BEDTIME PRN PRN PO Ferric Sodium Gluconate Complex 125 MG Q24H IV Sodium Chloride 100 ML Tramadol HCl 100 MG TID PRN PRN PO Citalopram Hydrobromide 40 MG DAILY PO Hydrochlorothiazide 25 MG DAILY PO (DC) Lisinopril 20 MG DAILY PO Metoprolol Tartrate 25 MG BID PO Sucralfate 1 GM QID PO Physical Exam General appearance: alert, awake, oriented, no a cute distress, no respiratory distress ENT: nasal packing Neck: full range of motion, non-tender, no JVD Cardiovascular: normal heart sounds, normal S1 S 2, normal rate and rhythm, no murmur Respiratory/Chest: aerating well, clear to auscultation, symmetric expansion, no distress Abdomen: distended, soft, normal bowel sounds, n o guarding Genitourinary: rubin, urine Extremities: moves all, no clubbing, no cyanosis , no edema Musculoskeletal: full range of motion, normal in spection Neuro/REFERRAL COORDINATOR: alert, oriented X 3, no motor deficit s, no sensory deficits Gwen Coma Score: Gwen Coma Score: Response Value Patient intubated? no Gwen eyes: eyes open spontaneously 4 [place] speech: oriented 5 Gwen motor: obeys commands 6 Total 15 Results Findings/Data: Laboratory Tests 09/01/18 0730: [Embedded Image Not Available] 09/01/18 0400: [Embedded Image Not Available] 08/31/18 2329: [Embedded Image Not Available] 08/31/182038: [Embedded Image Not Available] 08/31/18 1535: [Embedded Image Not Available] 08/31/18 1050: [Embedded Image Not Available] Laboratory Tests 09/01 09/01 08/31 08/31 08/31 0730 0400 2328 2038 153 Chemistry Sodium (137 - 145 MMOL/L) 144 143 142 141 139 Potassium (3.5 - 5.1 MMOL/L) 4.1 Chloride (98 - 107 MMOL/L) 112 H Carbon Dioxide (22 - 30 MMOL/L) 25 BUN (7 - 17 MG/DL) 13 Creatinine (0.52 - 1.04 MG/DL) 0.70 Glomerular Filtr Rate > 60 Glucose (74 - 106 MG/DL) 198 H Calcium (8.4 - 10.2 MG/DL) 8.8 08/31 1050 Chemistry Sodium (137 - 145 MMOL/L) 140 Laboratory Tests 09/01 0400 Coagulation INR (0.8 - 1.1) 1.0 APTT (22.0 - 33.0 SECONDS) 25.0 PT Patient/Control Mix (9.6 - 11.6 SECONDS) 10. 1 Laboratory Tests 09/01 0400 Hematology WBC (3.8 - 9.8 K/MM3) 11.7 H RBC (3.58 - 4.97 M/MM3) 3.59 Hgb (11.2 - 14.9 G/DL) 8.0 L Hct (33.2 - 43.5 %) 26.8 L MCV (80.7 - 99.1 fL) 75 L MCH (27.0 - 34.1 pg) 22.3 L MCHC (32.2 - 35.7 %) 29.9 L RDW (12.1 - 15.2 %) 19.5 H Plt Count (129 - 368 K/MM3) 301 MPV (7.4 - 10.4 fl) 9.4 Neut % (Auto) (43 - 75 %) 71.6 Lymph % (Auto) (14 - 44 %) 18.1 [place] % (Auto) (4 - 13 %) 8.3 Eos % (Auto) (0 - 6 %) 0.5 Baso % (Auto) (0 - 2 %) 0.1 Neut # (Auto) (2.0 - 7.6 K/mm3) 8.40 H Lymph # (Auto) (1.0 - 3.8 K/mm3) 2.13 [place] # (Auto) (0.1 - 0.8 K/mm3) 0.98 H Eos # (Auto) (0.0 - 0.2 K/mm3) 0.06 Baso # (Auto) (0.0 - 0.2 K/mm3) 0.01 Immature Gran % (0.0 - 2.0 %) 1.4 Nucleated RBC % (0 - 1.0 %) 0.0 Nucleated RBCs # (Man) (0.0 - 0.1 K/mm3) 0.00 Laboratory Tests 09/01 08/31 08/31 08/31 0835 2320 1955 1735 Urines Ur Specific Beat[place] (1.003 - 1.030) 1.015 1.005 1.010 1.015 Results: labs reviewed, india l signs stable, rhythm peronally rev'd, current med profile rev'd Treatment Prophylaxis Treatment Prophylaxis Indication for urinary catheter: accurate I/O an d crit ill Oxygen: room air Lines: peripheral Anti-arrhythmics: metoprolol Anti-infectives: ampicillin Diagnosis, Assessment Plan Problem List/A P: 1. Status post transsphenoidal pituitary resect ion s/p resection of pituitary tumor strict i/o with rubin catheter cortisol, serum na, urine specific gravity q8h DDAVP prn, for concern for diabetes insipidus neuro checks hourly primary managment per neurosx team Free Text A P: f/u 35 mins Orders: Procedure Date/time Status UA SPECIFIC GRAVITY 09/02 2100 Active SODIUM 09/02 2100 Active CORTISOL 09/02 2100 Active UA SPECIFIC GRAVITY 09/02 1300 Active SODIUM 09/02 1300 Active CORTISOL 09/02 1300 Active UA SPECIFIC GRAVITY 09/02 0500 Active SODIUM 09/02 0500 Active CORTISOL 09/02 0500 Active UA SPECIFIC GRAVITY 09/01 2100 Active SODIUM 09/01 2100 Active CORTISOL 09/01 2100 Active UA SPECIFIC GRAVITY 09/01 1300 Active SODIUM 09/01 1300 Active CORTISOL 09/01 1300 Active RT: Oxygen Per Protocol 09/01 940 Complete RT: Extubation 09/01 940 Complete Melissa Miller 09/01/18 1715: Attestations Midlevel/Physician Attestation Midlevel attestation: Services and addendum: Agree with the findings and plan as documented b y Pierre-Lann, Dominguez VISITOR SERVICES TECHNICIAN I obtained a detailed history and perfor med a detailed physical examination. I reviewed the medical records and the available data I agree with the documented examination findings, assessment and plan of sarah elder. at 1222 RPT #:[id number] END OF REPORT 2018-09-01 09:10:00-00:00 [facility] Critical Care Progress Note REPORT#:[id number] REPORT STATUS: Signed DATE:09/01/18 TIME: 909 PATIENT: LEIGH FRYE UNIT #: [id number] ROOM[address]BED: [address] : 80 AGE: 38 SEX: F ATTEND: Johana Mckoy MD ADM AUTHOR: DOMINGUEZ CORTES * ALL edits or amendments must be made on the BioST[employer]/computer document * Prakash Cortes 09/01/18 0910: Subjective Comments: DDAVP x 1 overnight. So far this morning UOP 50 cc/hr. Less nasal drainage, lumbar drain on hold. Hemody namically stable. Continue q 8hr sodium, ua specific gravity, cortisol levels. discussed with neurosx crnp Review of Systems ROS Respiratory: Denies: SOB. Cardiovascular: Denies: chest pain. GI: Denies: abdominal pain, nausea, rectal pain. Additional notes: complaining of general body pain. constipation Objective General VS/I O Last Documented: Result Date Time Temp 36.8 09/01 0800 Pulse Ox 96 09/01 0717 B/P 123/59 09/01 716 B/P Mean 85 09/01 07 Pulse 78 09/01 0717 Resp 18 09/01 07 O2 Delivery Face mist tent 08/30 1615 O2 Flow Rate 10.963080 08/30 1615 24 hour I O ending at 0700: 09/01 0700 08/31 1900 Intake Total 3030.00 2490.00 Output Total 4140 1065 Balance -1110.00 1425.00 Intake, IV 1350.00 1010.00 Intake, Oral 1680 1480 Number 1 Bowel Movements Output, Urine 4140 1065 Patient 186.88 kg Weight Medications: Active Meds + DC'd Last 24 Hrs Fludrocortisone Acetate 0.1 MG BID PO Lactated Ringer's 1,000 ML ONCE ONE IV Desmopressin Acetate 2 MCG ONCE ONE IV (DC) Sodium Chloride 500 ML BOLUS ONCE ONE IV (DC) Trazodone HCl 50 MG BEDTIME PRN PRN PO Docusate Sodium 100 MG BID PO Mupirocin 1 APPLIC BID NASAL Hydrocodone Bitart/Acetaminophen 1 TAB Q4H PRN P RN PO Hydrocodone Bitart/Acetaminophen 2 TAB Q4H PRN P RN PO Phenol 1 SPRAY Q4H PRN PRN MM Ampicillin Sodium/Sulbactam Sodium 3,000 MG Q6HR IV Sodium Chloride 100 ML Acetaminophen 650 MG Q4H PRN PRN PO Morphine Sulfate 4 MG Q4H PRN PRN IV Ondansetron HCl 4 MG Q4H PRN PRN IV Sodium Chloride 1,000 ML .Q20H IV [place] Oil/Swedish Balsam/Trypsin 1 XIANG Q12HR T OPICAL (CKD) Clotrimazole 1 XIANG BID TOPICAL (CKD) Pantoprazole 40 MG Q12HR PO Vitamin B Complex/Vitamin C 1 TAB BID PO (CKD) Zolpidem Tartrate 5 MG BEDTIME PRN PRN PO Ferric Sodium Gluconate Complex 125 MG Q24H IV Sodium Chloride 100 ML Tramadol HCl 100 MG TID PRN PRN PO Citalopram Hydrobromide 40 MG DAILY PO Hydrochlorothiazide 25 MG DAILY PO (DC) Lisinopril 20 MG DAILY PO Metoprolol Tartrate 25 MG BID PO Sucralfate 1 GM QID PO Physical Exam General appearance: alert, awake, oriented, no a cute distress, no respiratory distress ENT: nasal packing Neck: full range of motion, non-tender, no JVD Cardiovascular: normal heart sounds, normal S1 S 2, normal rate and rhythm, no murmur Respiratory/Chest: aerating well, clear to auscultation, symmetric expansion, no distress Abdomen: distended, soft, normal bowel sounds, n o guarding Genitourinary: rubin, urine Extremities: moves all, no clubbing, no cyanosis , no edema Musculoskeletal: full range of motion, normal in spection Neuro/REFERRAL COORDINATOR: alert, oriented X 3, no motor deficit s, no sensory deficits Gwen Coma Score: [place] Coma Score: Response Value Patient intubated? no [place] eyes: eyes open spontaneously 4 Gwen speech: oriented 5 [place] motor: obeys commands 6 Total 15 Results Findings/Data: Laboratory Tests 09/01/18 0730: [Embedded Image Not Available] 09/01/18 0400: [Embedded Image Not Available] 08/31/18 232: [Embedded Image Not Available] 08/31/182038: [Embedded Image Not Available] 08/31/18 1535: [Embedded Image Not Available] 08/31/18 1050: [Embedded Image Not Available] Laboratory Tests 09/0130 0400 2328 2038 1535 Chemistry Sodium (137 - 145 MMOL/L) 144 143 142 141 139 Potassium (3.5 - 5.1 MMOL/L) 4.1 Chloride (98 - 107 MMOL/L) 112 H Carbon Dioxide (22 - 30 MMOL/L) 25 BUN (7 - 17 MG/DL) 13 Creatinine (0.52 - 1.04 MG/DL) 0.70 Glomerular Filtr Rate > 60 Glucose (74 - 106 MG/DL) 198 H Calcium (8.4 - 10.2 MG/DL) 8.8 08/31 1050 Chemistry Sodium (137 - 145 MMOL/L) 140 Laboratory Tests 09/02 399 Coagulation INR (0.8 - 1.1) 1.0 APTT (22.0 - 33.0 SECONDS) 25.0 PT Patient/Control Mix (9.6 - 11.6 SECONDS) 10. 1 Laboratory Tests 09/02 399 Hematology WBC (3.8 - 9.8 K/MM3) 11.7 H RBC (3.58 - 4.97 M/MM3) 3.59 Hgb (11.2 - 14.9 G/DL) 8.0 L Hct (33.2 - 43.5 %) 26.8 L MCV (80.7 - 99.1 fL) 75 L MCH (27.0 - 34.1 pg) 22.3 L MCHC (32.2 - 35.7 %) 29.9 L RDW (12.1 - 15.2 %) 19.5 H Plt Count (129 - 368 K/MM3) 301 MPV (7.4 - 10.4 fl) 9.4 Neut % (Auto) (43 - 75 %) 71.6 Lymph % (Auto) (14 - 44 %) 18.1 [place] % (Auto) (4 - 13 %) 8.3 Eos % (Auto) (0 - 6 %) 0.5 Baso % (Auto) (0 - 2 %) 0.1 Neut # (Auto) (2.0 - 7.6 K/mm3) 8.40 H Lymph # (Auto) (1.0 - 3.8 K/mm3) 2.13 [place] # (Auto) (0.1 - 0.8 K/mm3) 0.98 H Eos # (Auto) (0.0 - 0.2 K/mm3) 0.06 Baso # (Auto) (0.0 - 0.2 K/mm3) 0.01 Immature Gran % (0.0 - 2.0 %) 1.4 Nucleated RBC % (0 - 1.0 %) 0.0 Nucleated RBCs # (Man) (0.0 - 0.1 K/mm3) 0.00 Laboratory Tests 09/01 08/31 08/31 08/31 0835 2320 1955 1735 Urines Ur Specific Beatty (1.003 - 1.030) 1.015 1.005 1.010 1.015 Results: labs reviewed, india l signs stable, rhythm peronally rev'd, current med profile rev'd Treatment Prophylaxis Treatment Prophylaxis Indication for urinary catheter: accurate I/O an d crit ill Oxygen: room air Lines: peripheral Anti-arrhythmics: metoprolol Anti-infectives: ampicillin Diagnosis, Assessment Plan Problem List/A P: 1. Status post transsphenoidal pituitary resect ion s/p resection of pituitary tumor strict i/o with rubin catheter cortisol, serum na, urine specific gravity q8h DDAVP prn, for concern for diabetes insipidus neuro checks hourly primary managment per neurosx team Free Text A P: f/u 35 mins Orders: Procedure Date/time Status UA SPECIFIC GRAVITY 09/02 2100 Active SODIUM 09/02 2100 Active CORTISOL 09/02 2100 Active UA SPECIFIC GRAVITY 09/02 1300 Active SODIUM 09/02 1300 Active CORTISOL 09/02 1300 Active UA SPECIFIC GRAVITY 09/02 0500 Active SODIUM 09/02 0500 Active CORTISOL 09/02 0500 Active UA SPECIFIC GRAVITY 09/01 2100 Active SODIUM 09/01 2100 Active CORTISOL 09/01 2100 Active UA SPECIFIC GRAVITY 09/01 1300 Active SODIUM 09/01 1300 Active CORTISOL 09/01 1300 Active RT: Oxygen Per Protocol 09/01 940 Complete RT: Extubation 09/01 940 Complete Melissa Miller 09/01/18 1715: Attestations Midlevel/Physician Attestation Midlevel attestation: Services and addendum: Agree with the findings and plan as documented b y Dominguez Cortes NP I obtained a detailed history and perfor med a detailed physical examination. I reviewed the medical records and the available data I agree with the documented examination findings, assessment and plan of car e. at 1222 Electronically Signed by Melissa Miller MD on 09/01 at 1715 RPT #:[id number] END OF REPORT 2018-08-31 16:54:00-00:00 [id number] [place] [address] PATIENT NAME: LEIGH FRYE ADMIT DATE: 08/25/18 ACCOUNT NO: [id number] ROOM NO: [facility] AGE: 38 REPORT TYPE: PROGRESS NOTE SEX: F ADMITTING PHYSICIAN:Jani Mckoy MD ATTENDING PHYSICIAN:Jani Mckoy MD DATE: SUBJECTIVE: A 38-year-old female here with heada lois, had a pituitary tumor, suspected adenoma. Preoperative testing did not give a single elevated diagnostic hormone and ____ proceeded wi resection ____ done yesterday. ____ she had rhinorrhea, suspected CSF. It has persis kenroy during the day and the amount is less but she is begum ving headaches and plans are to do a lumbar drain to take the pressure off tomorrow morning. The patient advised and also proceeded with the drain. She has no fever. Blood pressure is stable. Heart rate is stable, sinus. No change in vision, hearing. ___ _ chest pain or respiratory problems. No nausea, vomiting, or diarrhea. ____ leg strength. The patient's laboratory data, vital signs in printed portion of general progress note have been reviewed along with medi cation list in the printed portion. She has Unasyn for postop sinus prophyl axis. Pain control is satisfactory. She received one dose of desmopres sin during the night. CT scan was reviewed is satisfactory. OBJECTIVE: GENERAL: Clinically, the patient is morbidly obe se, awake, alert, responsive, and oriented. Vision and hearing are intact. She can swallow. NECK: Unremarkable. Neck ultrasound done for par athyroid and shows 2.7 cm nodule in the right side, suspected thyroid tumo r. Planned for later followup and biopsy. LUNGS: Clear. CARDIAC: No murmur. ABDOMEN: Benign. EXTREMITIES: Legs, no edema. No calf tenderness. NEUROLOGICAL: Evaluation is unchanged. LABORATORY DATA: Blood sugars are satisfactory. Sodium is upto 140. Cortisol level 4678. Remain ____ decompression. We will r echeck her ACTH level. Hemoglobin is 9.1, stable. White cell count 10.6 , stable. PLAN: Discussed with Dr. Viera. We will plan for the lumbar drain for the morning. The patient is advised and understands rationale behind it. ____ she has left breast and right thigh and plan for a b iopsy at a later stage. They are probably not related to the ____. Dictated By: Jani Mckoy MD WT: PN:Z.[facility]/[place]ONATHAN/JERSON PATIENT NAME: LEIGH FRYE Conf#: [id number]/DID#: [id number] Authenticated by Jani Mckoy MD On 06:03:48 AM at 0604 PATIENT NAME: LEIGH FRYE 2018-08-31 15:28:00-00:00 [facility] ([facility]) Neurosurgical Progress Note REPORT#:[id number] REPORT STATUS: Signed DATE:08/31/18 TIME: 1528 PATIENT: LEIGH FRYE UNIT #: [id number] [address]: [address] AGE: 38 SEX: F ATTEND: Johana Mckoy MD ADM AUTHOR: Tanya Rodriguez NP * ALL edits or amendments must be made on the el [facility]/computer document * Subjective Comments: Nasal dressing requiring frequent changing throu ghout the day, with the fluid appearing to be CSF. Will plan to place lumbar d rain tomorrow. Objective General VS/I O: Vital Signs Date Temp Pulse Resp B/P B/P Mean Pulse Ox FiO2 08/30-08/31 97.6-98.3 69-90 14-37 102-178/56-80 78-115 92-100 24 hour I O ending at 0700: 08/31 0700 08/30 1900 Intake Total 3155.00 3395.00 Output Total 3065 260 Balance 90.00 3135.00 Intake, IV 2075.00 3275.00 Intake, Oral 1080 120 Output, Urine 3065 260 Medications: Active Meds + DC'd Last 24 Hrs Desmopressin Acetate 2 MCG ONCE ONE IV (DC) Sodium Chloride 50 ML Sodium Chloride 1,000 ML BOLUS ONCE ONE IV (DC) Docusate Sodium 100 MG BID PO Mupirocin 1 APPLIC BID NASAL Hydrocodone Bitart/Acetaminophen 1 TAB Q4H PRN P RN PO Hydrocodone Bitart/Acetaminophen 2 TAB Q4H PRN P RN PO Sugammadex Sodium 200 MG .STK-MED ONE Z (DC) Phenol 1 SPRAY Q4H PRN PRN MM Hydrocodone Bitart/Acetaminophen 1 TAB Q4H PRN P RN PO (DC) Hydrocodone Bitart/Acetaminophen 0 .STK-MED ONE PO (DC) Hydrocodone Bitart/Acetaminophen 1 TAB Q4H PRN P RN PO (DC) Hydrocodone Bitart/Acetaminophen 2 TAB Q4H PRN P RN PO (DC) Ampicillin Sodium/Sulbactam Sodium 3,000 MG Q6HR IV Sodium Chloride 100 ML Acetaminophen 650 MG Q4H PRN PRN PO Morphine Sulfate 4 MG Q4H PRN PRN IV Ondansetron HCl 4 MG Q4H PRN PRN IV Sodium Chloride 1,000 ML .[id number] IV [place] Oil/Swedish Balsam/Trypsin 1 XINAG Q12HR T OPICAL (CKD) Clotrimazole 1 XIANG BID TOPICAL (CKD) Pantoprazole 40 MG Q12HR PO Vitamin B Complex/Vitamin C 1 TAB BID PO (CKD) Zolpidem Tartrate 5 MG BEDTIME PRN PRN PO Ferric Sodium Gluconate Complex 125 MG Q24H IV Sodium Chloride 100 ML Atorvastatin Calcium 40 MG BEDTIME PO (DC) Tramadol HCl 100 MG TID PRN PRN PO Citalopram Hydrobromide 40 MG DAILY PO Hydrochlorothiazide 25 MG DAILY PO (DC) Lisinopril 20 MG DAILY PO Metoprolol Tartrate 25 MG BID PO Sucralfate 1 GM QID PO Physical Exam General appearance: alert, awake, oriented Cardiovascular: normal capillary refill, regular rate rhythm Respiratory: no distress, symmetric expansion Abdomen: non-tender, normal bowel sounds, soft, no distention Neuro/REFERRAL COORDINATOR: alert, oriented X 3, CN II-XII intact, EOMI, PERRL, normal reflexes, normal speech, reflexes equal bilat, no motor de ficits, no sensory deficits Results Findings/Data: Laboratory Tests 08/31 08/31 08/31 08/30 08/30 1050 0054 0054 1545 1545 Chemistry Sodium (137 - 145 MMOL/L) 140 142 139 Potassium (3.5 - 5.1 MMOL/L) 4.1 Chloride (98 - 107 MMOL/L) 107 Carbon Dioxide (22 - 30 MMOL/L) 24 BUN (7 - 17 MG/DL) 15 Creatinine (0.52 - 1.04 MG/DL) 0.80 Glomerular Filtr Rate > 60 Glucose (74 - 106 MG/DL) 137 H Calcium (8.4 - 10.2 MG/DL) 9.2 Cortisol Baseline (1.7 - 22.7 ug/dL) 78.90 H 46 .60 H Laboratory Tests 08/30 1545 Hematology WBC (3.8 - 9.8 K/MM3) 10.6 H RBC (3.58 - 4.97 M/MM3) 4.24 Hgb (11.2 - 14.9 G/DL) 9.1 L Hct (33.2 - 43.5 %) 30.9 L MCV (80.7 - 99.1 fL) 73 L MCH (27.0 - 34.1 pg) 21.5 L MCHC (32.2 - 35.7 %) 29.4 L RDW (12.1 - 15.2 %) 17.9 H Plt Count (129 - 368 K/MM3) 326 MPV (7.4 - 10.4 fl) 9.4 Neut % (Auto) (43 - 75 %) 78.2 H Lymph % (Auto) (14 - 44 %) 15.2 Merrick % (Auto) (4 - 13 %) 4.9 Eos % (Auto) (0 - 6 %) 0.8 Baso % (Auto) (0 - 2 %) 0.2 Neut # (Auto) (2.0 - 7.6 K/mm3) 8.27 H Lymph # (Auto) (1.0 - 3.8 K/mm3) 1.61 Merrick # (Auto) (0.1 - 0.8 K/mm3) 0.52 Eos # (Auto) (0.0 - 0.2 K/mm3) 0.08 Baso # (Auto) (0.0 - 0.2 K/mm3) 0.02 Immature Gran % (0.0 - 2.0 %) 0.7 Nucleated RBC % (0 - 1.0 %) 0.0 Nucleated RBCs # (Man) (0.0 - 0.1 K/mm3) 0.00 Laboratory Tests 08/31 08/31 08/30 0755 0030 1644 Urines Ur Specific Beatty (1.003 - 1.030) 1.010 1.005 1.025 Ur Random Sodium (27 - 287 MMOL/L) 91 Radiology data: Recent Impressions: CAT SCAN - CT HEAD/BRAIN W/O CONT 08/31 0505 Report Impression - Status: SIGNED Entered: 08/31/2018 0820 IMPRESSION: Interval postoperative changes of a transsphenoi [place] resection of pituitary tumor with expected changes seen in th e region. Otherwise, no other intracranial abnormality. Impression By: [email or web address] - Keri Avila MD Diagnosis, Assessment Plan Free Text A P: A: 38 year old female now POD#1 from transspheno idal resection of pituitary adenoma P: Plan for lumbar drain placement tomorrow due to CSF leak. Tomorrow at 0900 NPO at [place] Electronically Signed by Tanya Rodriguez NP on 08/20 06/07 at 7757 RPT #:[id number] END OF REPORT 2018-08-31 15:28:00-00:00 [facility] ([facility]) Neurosurgical Progress Note REPORT#:[id number] REPORT STATUS: Signed DATE:08/31/18 TIME: 1528 PATIENT: LEIGH FRYE UNIT #: [id number] [address]: [address] : 80 AGE: 38 SEX: F ATTEND: Johana Mckoy MD ADM AUTHOR: Tanya Rodriguez, VISITOR SERVICES TECHNICIAN * ALL edits or amendments must be made on the [employer]/computer document * Tanya Rodriguez NP 08/31/18 1528: Subjective Comments: Nasal dressing requiring frequent changing throu ghout the day, with the fluid appearing to be CSF. Will plan to place lumbar d rain tomorrow. Objective General VS/I O: Vital Signs Date Temp Pulse Resp B/P B/P Mean Pulse Ox FiO 2 08/30-08/31 97.6-98.3 69-90 14-37 102-178/56-80 78-115 92-100 24 hour I O ending at 0700: 08/31 0700 08/30 1900 Intake Total 3155.00 3395.00 Output Total 3065 260 Balance 90.00 3135.00 Intake, IV 2075.00 3275.00 Intake, Oral 1080 120 Output, Urine 3065 260 Medications: Active Meds + DC'd Last 24 Hrs Desmopressin Acetate 2 MCG ONCE ONE IV (DC) Sodium Chloride 50 ML Sodium Chloride 1,000 ML BOLUS ONCE ONE IV (DC) Docusate Sodium 100 MG BID PO Mupirocin 1 APPLIC BID NASAL Hydrocodone Bitart/Acetaminophen 1 TAB Q4H PRN P RN PO Hydrocodone Bitart/Acetaminophen 2 TAB Q4H PRN P RN PO Sugammadex Sodium 200 MG .STK-MED ONE Z (DC) Phenol 1 SPRAY Q4H PRN PRN MM Hydrocodone Bitart/Acetaminophen 1 TAB Q4H PRN P RN PO (DC) Hydrocodone Bitart/Acetaminophen 0 .STK-MED ONE PO (DC) Hydrocodone Bitart/Acetaminophen 1 TAB Q4H PRN P RN PO (DC) Hydrocodone Bitart/Acetaminophen 2 TAB Q4H PRN P RN PO (DC) Ampicillin Sodium/Sulbactam Sodium 3,000 MG Q6HR IV Sodium Chloride 100 ML Acetaminophen 650 MG Q4H PRN PRN PO Morphine Sulfate 4 MG Q4H PRN PRN IV Ondansetron HCl 4 MG Q4H PRN PRN IV Sodium Chloride 1,000 ML .[id number] IV [place] Oil/Swedish Balsam/Trypsin 1 XIANG Q12HR T OPICAL (CKD) Clotrimazole 1 XIANG BID TOPICAL (CKD) Pantoprazole 40 MG Q12HR PO Vitamin B Complex/Vitamin C 1 TAB BID PO (CKD) Zolpidem Tartrate 5 MG BEDTIME PRN PRN PO Ferric Sodium Gluconate Complex 125 MG Q24H IV Sodium Chloride 100 ML Atorvastatin Calcium 40 MG BEDTIME PO (DC) Tramadol HCl 100 MG TID PRN PRN PO Citalopram Hydrobromide 40 MG DAILY PO Hydrochlorothiazide 25 MG DAILY PO (DC) Lisinopril 20 MG DAILY PO Metoprolol Tartrate 25 MG BID PO Sucralfate 1 GM QID PO Physical Exam General appearance: alert, awake, oriented Cardiovascular: normal capillary refill, regular rate rhythm Respiratory: no distress, symmetric expansion Abdomen: non-tender, normal bowel sounds, soft, no distention Neuro/REFERRAL COORDINATOR: alert, oriented X 3, CN II-XII intact, EOMI, PERRL, normal reflexes, normal speech, reflexes equal bilat, no motor de ficits, no sensory deficits Results Findings/Data: Laboratory Tests 08/31 08/31 08/31 08/30 08/30 1050 0054 0054 1545 1545 Chemistry Sodium (137 - 145 MMOL/L) 140 142 139 Potassium (3.5 - 5.1 MMOL/L) 4.1 Chloride (98 - 107 MMOL/L) 107 Carbon Dioxide (22 - 30 MMOL/L) 24 BUN (7 - 17 MG/DL) 15 Creatinine (0.52 - 1.04 MG/DL) 0.80 Glomerular Filtr Rate > 60 Glucose (74 - 106 MG/DL) 137 H Calcium (8.4 - 10.2 MG/DL) 9.2 Cortisol Baseline (1.7 - 22.7 ug/dL) 78.90 H 46 .60 H Laboratory Tests 08/30 1545 Hematology WBC (3.8 - 9.8 K/MM3) 10.6 H RBC (3.58 - 4.97 M/MM3) 4.24 Hgb (11.2 - 14.9 G/DL) 9.1 L Hct (33.2 - 43.5 %) 30.9 L MCV (80.7 - 99.1 fL) 73 L MCH (27.0 - 34.1 pg) 21.5 L MCHC (32.2 - 35.7 %) 29.4 L RDW (12.1 - 15.2 %) 17.9 H Plt Count (129 - 368 K/MM3) 326 MPV (7.4 - 10.4 fl) 9.4 Neut % (Auto) (43 - 75 %) 78.2 H Lymph % (Auto) (14 - 44 %) 15.2 Merrick % (Auto) (4 - 13 %) 4.9 Eos % (Auto) (0 - 6 %) 0.8 Baso % (Auto) (0 - 2 %) 0.2 Neut # (Auto) (2.0 - 7.6 K/mm3) 8.27 H Lymph # (Auto) (1.0 - 3.8 K/mm3) 1.61 Merrick # (Auto) (0.1 - 0.8 K/mm3) 0.52 Eos # (Auto) (0.0 - 0.2 K/mm3) 0.08 Baso # (Auto) (0.0 - 0.2 K/mm3) 0.02 Immature Gran % (0.0 - 2.0 %) 0.7 Nucleated RBC % (0 - 1.0 %) 0.0 Nucleated RBCs # (Man) (0.0 - 0.1 K/mm3) 0.00 Laboratory Tests 08/31 08/31 08/30 0755 0030 1644 Urines Ur Specific [place] (1.003 - 1.030) 1.010 1.005 1.025 Ur Random Sodium (27 - 287 MMOL/L) 91 Radiology data: Recent Impressions: CAT SCAN - CT HEAD/BRAIN W/O CONT 08/31 0505 Report Impression - Status: SIGNED Entered: 08/31/2018 0820 IMPRESSION: Interval postoperative changes of a transsphenoi [place] resection of pituitary tumor with expected changes seen in th e region. Otherwise, no other intracranial abnormality. Impression By: [email or web address] Robert Avila MD Diagnosis, Assessment Plan Free Text A P: A: 38 year old female now POD#1 from transspheno idal resection of pituitary adenoma P: Plan for lumbar drain placement tomorrow due to CSF leak. Tomorrow at 0900 NPO at [facility] Rojas 09/02/18 1348: Diagnosis, Assessment Plan Additional comments: Agree with above Electronically Signed by Tanya Rodriguez NP on 08/20 06/07 at 1557 RPT #:[id number] END OF REPORT 2018-08-31 15:28:00-00:00 [facility] ([facility] Neurosurgical Progress Note REPORT#:[id number] REPORT STATUS: Signed DATE:08/31/18 TIME: 152 PATIENT: LEIGH FRYE UNIT #: [id number] [address]: [address] : 80 AGE: 38 SEX: F ATTEND: Johana Mckoy MD ADM AUTHOR: Tanya Rodriguez NP * ALL edits or amendments must be made on the [employer]/computer document * Tanya Rodriguez NP 08/31/18 1528: Subjective Comments: Nasal dressing requiring frequent changing throu ghout the day, with the fluid appearing to be CSF. Will plan to place lumbar d rain tomorrow. Objective General VS/I O: Vital Signs Date Temp Pulse Resp B/P B/P Mean Pulse Ox FiO2 08/30-08/31 97.6-98.3 69-90 14-37 102-178/56-80 78-115 92-100 24 hour I O ending at 0700: 08/31 0700 08/30 1900 Intake Total 3155.00 3395.00 Output Total 3065 260 Balance 90.00 3135.00 Intake, IV 2075.00 3275.00 Intake, Oral 1080 120 Output, Urine 3065 260 Medications: Active Meds + DC'd Last 24 Hrs Desmopressin Acetate 2 MCG ONCE ONE IV (DC) Sodium Chloride 50 ML Sodium Chloride 1,000 ML BOLUS ONCE ONE IV (DC) Docusate Sodium 100 MG BID PO Mupirocin 1 APPLIC BID NASAL Hydrocodone Bitart/Acetaminophen 1 TAB Q4H PRN P RN PO Hydrocodone Bitart/Acetaminophen 2 TAB Q4H PRN P RN PO Sugammadex Sodium 200 MG .STK-MED ONE Z (DC) Phenol 1 SPRAY Q4H PRN PRN MM Hydrocodone Bitart/Acetaminophen 1 TAB Q4H PRN P RN PO (DC) Hydrocodone Bitart/Acetaminophen 0 .STK-MED ONE PO (DC) Hydrocodone Bitart/Acetaminophen 1 TAB Q4H PRN P RN PO (DC) Hydrocodone Bitart/Acetaminophen 2 TAB Q4H PRN P RN PO (DC) Ampicillin Sodium/Sulbactam Sodium 3,000 MG Q6HR IV Sodium Chloride 100 ML Acetaminophen 650 MG Q4H PRN PRN PO Morphine Sulfate 4 MG Q4H PRN PRN IV Ondansetron HCl 4 MG Q4H PRN PRN IV Sodium Chloride 1,000 ML .[id number] IV [place] Oil/Swedish Balsam/Trypsin 1 XIANG Q12HR T OPICAL (CKD) Clotrimazole 1 XIANG BID TOPICAL (CKD) Pantoprazole 40 MG Q12HR PO Vitamin B Complex/Vitamin C 1 TAB BID PO (CKD) Zolpidem Tartrate 5 MG BEDTIME PRN PRN PO Ferric Sodium Gluconate Complex 125 MG Q24H IV Sodium Chloride 100 ML Atorvastatin Calcium 40 MG BEDTIME PO (DC) Tramadol HCl 100 MG TID PRN PRN PO Citalopram Hydrobromide 40 MG DAILY PO Hydrochlorothiazide 25 MG DAILY PO (DC) Lisinopril 20 MG DAILY PO Metoprolol Tartrate 25 MG BID PO Sucralfate 1 GM QID PO Physical Exam General appearance: alert, awake, oriented Cardiovascular: normal capillary refill, regular rate rhythm Respiratory: no distress, symmetric expansion Abdomen: non-tender, normal bowel sounds, soft, no distention Neuro/REFERRAL COORDINATOR: alert, oriented X 3, CN II-XII intact, EOMI, PERRL, normal reflexes, normal speech, reflexes equal bilat, no motor de ficits, no sensory deficits Results Findings/Data: Laboratory Tests 08/31 08/31 08/31 08/30 08/30 1050 0054 0054 1545 1545 Chemistry Sodium (137 - 145 MMOL/L) 140 142 139 Potassium (3.5 - 5.1 MMOL/L) 4.1 Chloride (98 - 107 MMOL/L) 107 Carbon Dioxide (22 - 30 MMOL/L) 24 BUN (7 - 17 MG/DL) 15 Creatinine (0.52 - 1.04 MG/DL) 0.80 Glomerular Filtr Rate > 60 Glucose (74 - 106 MG/DL) 137 H Calcium (8.4 - 10.2 MG/DL) 9.2 Cortisol Baseline (1.7 - 22.7 ug/dL) 78.90 H 46 .60 H Laboratory Tests 08/30 1545 Hematology WBC (3.8 - 9.8 K/MM3) 10.6 H RBC (3.58 - 4.97 M/MM3) 4.24 Hgb (11.2 - 14.9 G/DL) 9.1 L Hct (33.2 - 43.5 %) 30.9 L MCV (80.7 - 99.1 fL) 73 L MCH (27.0 - 34.1 pg) 21.5 L MCHC (32.2 - 35.7 %) 29.4 L RDW (12.1 - 15.2 %) 17.9 H Plt Count (129 - 368 K/MM3) 326 MPV (7.4 - 10.4 fl) 9.4 Neut % (Auto) (43 - 75 %) 78.2 H Lymph % (Auto) (14 - 44 %) 15.2 [place] % (Auto) (4 - 13 %) 4.9 Eos % (Auto) (0 - 6 %) 0.8 Baso % (Auto) (0 - 2 %) 0.2 Neut # (Auto) (2.0 - 7.6 K/mm3) 8.27 H Lymph # (Auto) (1.0 - 3.8 K/mm3) 1.61 [place] # (Auto) (0.1 - 0.8 K/mm3) 0.52 Eos # (Auto) (0.0 - 0.2 K/mm3) 0.08 Baso # (Auto) (0.0 - 0.2 K/mm3) 0.02 Immature Gran % (0.0 - 2.0 %) 0.7 Nucleated RBC % (0 - 1.0 %) 0.0 Nucleated RBCs # (Man) (0.0 - 0.1 K/mm3) 0.00 Laboratory Tests 08/31 08/31 08/30 0755 0030 1644 Urines Ur Specific [place] (1.003 - 1.030) 1.010 1.005 1.025 Ur Random Sodium (27 - 287 MMOL/L) 91 Radiology data: Recent Impressions: CAT SCAN - CT HEAD/BRAIN W/O CONT 08/31 0505 Report Impression - Status: SIGNED Entered: 08/31/2018 0820 IMPRESSION: Interval postoperative changes of a transsphenoi [place] resection of pituitary tumor with expected changes seen in th e region. Otherwise, no other intracranial abnormality. Impression By: [email or web address] - Keri Avila MD Diagnosis, Assessment Plan Free Text A P: A: 38 year old female now POD#1 from transspheno idal resection of pituitary adenoma P: Plan for lumbar drain placement tomorrow due to CSF leak. Tomorrow at 0900 NPO at [place] Ozzy Viera 09/02/18 1348: Diagnosis, Assessment Plan Additional comments: Agree with above Electronically Signed by Tanya Rodriguez NP on 08/20 06/07 at 1557 Electronically Signed by Ozzy Viera MD on 08/20 07/08 at 1349 RPT #:[id number] END OF REPORT 2018-08-31 14:18:00-00:00 [facility] ([facility]) General Progress Note REPORT#:[id number] REPORT STATUS: Signed DATE:08/31/18 TIME: 1418 PATIENT: LEIGH FRYE UNIT #: [id number] ROOM/BED: [facility] : 80 AGE: 38 SEX: F ATTEND: Johana Mckoy MD ADM AUTHOR: Jani Mckoy MD * ALL edits or amendments must be made on the el [employer]/computer document * Subjective Comments: Vital Signs Date Time Temp Pulse Resp B/P B/P Pulse O2 O2 Fl ow FiO2 Mean Ox Delivery Rate 08/31 1300 79 19 141/65 94 97 08/31 1200 98.3 08/31 1200 78 21 138/62 88 97 06/12 1143 84 20 161/74 106 06/12 1000 71 21 134/60 86 97 06/12 0900 70 20 138/57 78 96 06/12 0800 98.3 06/12 0800 69 23 116/56 81 97 06/12 0700 69 19 102/67 78 93 06/12 0600 80 31 114/56 80 97 06/12 0500 73 20 139/64 92 96 06/12 0400 97.7 06/12 0400 74 123/59 85 95 06/12 0300 76 16 143/62 89 92 06/12 0200 83 18 162/74 106 92 06/12 0100 79 20 148/65 93 97 06/12 0000 97.6 06/12 0000 90 19 152/67 97 99 06/11 2300 87 19 163/75 108 96 06/11 2200 77 17 155/71 102 100 06/11 2130 77 18 171/77 111 98 06/11 2115 79 25 169/77 111 98 06/11 2100 77 17 173/78 112 97 06/11 2045 77 15 178/80 115 98 06/11 2030 82 37 154/72 104 98 06/11 2014 82 17 177/79 114 96 06/11 2000 97.6 06/11 2000 81 18 170/79 113 98 06/11 1945 80 17 172/79 113 98 06/11 1930 85 17 175/79 113 98 06/11 1915 83 17 168/77 111 97 06/11 1900 84 17 163/78 111 98 06/11 1730 83 28 171/77 110 96 06/11 1715 83 20 176/80 115 94 06/11 1700 82 17 174/77 111 95 06/11 1645 80 22 156/70 100 96 06/11 1630 79 14 171/79 113 96 06/11 1615 Face mist 10.406007 tent 06/11 1615 77 16 169/77 111 95 06/11 1600 98.3 06/11 1600 74 19 152/80 110 06/11 1545 Face mist 10.310669 tent 06/11 1545 75 14 153/76 107 06/11 1533 75 18 151/70 100 06/11 1525 97.7 06/11 1500 79 16 161/68 100 Face mist 10.406477 tent 06/11 1450 76 16 168/80 100 Face mist 10.919634 tent 06/11 1440 74 16 156/76 100 Face mist 10.321918 tent 08/30 1430 98.0 75 16 149/73 100 Face mist 10.00 0000 tent 08/30 1057 98.7 63 16 128/71 99 Room air 0.31733 0 08/30 0726 97.9 63 14 110/73 85.2 97 Room air 08/30 0415 97.9 66 16 102/66 77.9 98 Room air 08/29 2324 98.2 61 16 133/84 100.5 100 Room air 08/29 1920 97.7 73 16 116/75 88.7 98 Room air 08/29 1559 97.9 73 14 102/64 76.6 98 Room air Laboratory Tests: 08/31 08/31 08/31 08/31 08/31 1050 0755 0054 0054 0030 Chemistry Sodium (137 - 145 MMOL/L) 140 142 Cortisol Baseline (1.7 - 22.7 ug/dL) 78.90 H Urines Ur Specific [place] (1.003 - 1.030) 1.010 1.005 Ur Random Sodium (27 - 287 MMOL/L) 91 08/30 08/30 08/30 1644 1545 1545 Chemistry Sodium (137 - 145 MMOL/L) 139 Potassium (3.5 - 5.1 MMOL/L) 4.1 Chloride (98 - 107 MMOL/L) 107 Carbon Dioxide (22 - 30 MMOL/L) 24 BUN (7 - 17 MG/DL) 15 Creatinine (0.52 - 1.04 MG/DL) 0.80 Glomerular Filtr Rate > 60 Glucose (74 - 106 MG/DL) 137 H Calcium (8.4 - 10.2 MG/DL) 9.2 Cortisol Baseline (1.7 - 22.7 ug/dL) 46.60 H Hematology WBC (3.8 - 9.8 K/MM3) 10.6 H RBC (3.58 - 4.97 M/MM3) 4.24 Hgb (11.2 - 14.9 G/DL) 9.1 L Hct (33.2 - 43.5 %) 30.9 L MCV (80.7 - 99.1 fL) 73 L MCH (27.0 - 34.1 pg) 21.5 L MCHC (32.2 - 35.7 %) 29.4 L RDW (12.1 - 15.2 %) 17.9 H Plt Count (129 - 368 K/MM3) 326 MPV (7.4 - 10.4 fl) 9.4 Neut % (Auto) (43 - 75 %) 78.2 H Lymph % (Auto) (14 - 44 %) 15.2 Merrick % (Auto) (4 - 13 %) 4.9 Eos % (Auto) (0 - 6 %) 0.8 Baso % (Auto) (0 - 2 %) 0.2 Neut # (Auto) (2.0 - 7.6 K/mm3) 8.27 H Lymph # (Auto) (1.0 - 3.8 K/mm3) 1.61 [place] # (Auto) (0.1 - 0.8 K/mm3) 0.52 Eos # (Auto) (0.0 - 0.2 K/mm3) 0.08 Baso # (Auto) (0.0 - 0.2 K/mm3) 0.02 Immature Gran % (0.0 - 2.0 %) 0.7 Nucleated RBC % (0 - 1.0 %) 0.0 Nucleated RBCs # (Man) (0.0 - 0.1 K/mm3) 0.00 Urines Ur Specific [place] (1.003 - 1.030) 1.025 Recent Impressions: CAT SCAN - CT HEAD/BRAIN W/O CONT 08/31 0505 Report Impression - Status: SIGNED Entered: 08/31/2018 0820 IMPRESSION: Interval postoperative changes of a transsphenoi [place] resection of pituitary tumor with expected changes seen in th e region. Otherwise, no other intracranial abnormality. Impression By: [email or web address] - Keri Avila MD 08/31 08/31 08/31 08/30 08/30 1050 0054 0054 1545 1545 Chemistry Sodium (137 - 145 MMOL/L) 140 142 139 Potassium (3.5 - 5.1 MMOL/L) 4.1 Chloride (98 - 107 MMOL/L) 107 Carbon Dioxide (22 - 30 MMOL/L) 24 BUN (7 - 17 MG/DL) 15 Creatinine (0.52 - 1.04 MG/DL) 0.80 Glomerular Filtr Rate > 60 Glucose (74 - 106 MG/DL) 137 H Calcium (8.4 - 10.2 MG/DL) 9.2 Cortisol Baseline (1.7 - 22.7 ug/dL) 78.90 H 46 .60 H 08/30 1545 Hematology WBC (3.8 - 9.8 K/MM3) 10.6 H RBC (3.58 - 4.97 M/MM3) 4.24 Hgb (11.2 - 14.9 G/DL) 9.1 L Hct (33.2 - 43.5 %) 30.9 L MCV (80.7 - 99.1 fL) 73 L MCH (27.0 - 34.1 pg) 21.5 L MCHC (32.2 - 35.7 %) 29.4 L RDW (12.1 - 15.2 %) 17.9 H Plt Count (129 - 368 K/MM3) 326 MPV (7.4 - 10.4 fl) 9.4 Neut % (Auto) (43 - 75 %) 78.2 H Lymph % (Auto) (14 - 44 %) 15.2 Merrick % (Auto) (4 - 13 %) 4.9 Eos % (Auto) (0 - 6 %) 0.8 Baso % (Auto) (0 - 2 %) 0.2 Neut # (Auto) (2.0 - 7.6 K/mm3) 8.27 H Lymph # (Auto) (1.0 - 3.8 K/mm3) 1.61 Merrick # (Auto) (0.1 - 0.8 K/mm3) 0.52 Eos # (Auto) (0.0 - 0.2 K/mm3) 0.08 Baso # (Auto) (0.0 - 0.2 K/mm3) 0.02 Immature Gran % (0.0 - 2.0 %) 0.7 Nucleated RBC % (0 - 1.0 %) 0.0 Nucleated RBCs # (Man) (0.0 - 0.1 K/mm3) 0.00 08/31 0700 / 2300 11 1500 Intake Total 2960.00 2590.00 1000.00 Output Total 2415 910 Balance 545.00 1680.00 1000.00 Intake, IV 2000.00 2350.00 1000.00 Intake, Oral 960 240 Output, Urine 2415 910 Current Medications Sig/Roshan Start time Last Medication Dose Route Stop Time Status Admin Desmopressin Acetate 2 MCG ONCE ONE 08/31 0230 DC 08/31 Sodium Chloride 50 ML IV 08/31 0259 0227 Sodium Chloride 1,000 ML BOLUS ONCE ONE 08/31 0 145 DC 08/31 IV 08/31 0244 0140 Docusate Sodium 100 MG BID 08/30 2100 AC 08/31 PO 09/29 2101 0804 Mupirocin 1 APPLIC BID 08/30 2100 AC 08/31 NASAL 09/04 2101 0806 Hydrocodone Bitart/ 1 TAB Q4H PRN PRN 08/30 201 5 AC Acetaminophen PO 09/30 2015 Hydrocodone Bitart/ 2 TAB Q4H PRN PRN 08/30 201 5 AC 08/31 Acetaminophen PO 09/30 2015 0556 Sugammadex Sodium 200 MG .STK-MED ONE 08/30 182 3 DC Z 08/30 1824 Phenol 1 SPRAY Q4H PRN PRN 08/30 1820 AC MM 09/29 1821 Hydrocodone Bitart/ 1 TAB Q4H PRN PRN 08/30 180 5 DC Acetaminophen PO 09/29 1806 Hydrocodone Bitart/ 0 .STK-MED ONE 08/30 1754 D C 08/30 Acetaminophen PO 1756 Hydrocodone Bitart/ 1 TAB Q4H PRN PRN 08/30 175 0 DC Acetaminophen PO 09/29 1751 Hydrocodone Bitart/ 2 TAB Q4H PRN PRN 08/30 175 0 DC Acetaminophen PO 09/29 1751 Ampicillin Sodium/ 3,000 MG Q6HR 08/30 1630 AC 08/31 Sulbactam Sodium IV 09/09 1759 1207 Sodium Chloride 100 ML Acetaminophen 650 MG Q4H PRN PRN 08/30 1525 AC PO 09/29 1446 Morphine Sulfate 4 MG Q4H PRN PRN 08/30 1525 A C 08/31 IV 09/29 1522 1144 Ondansetron HCl 4 MG Q4H PRN PRN 08/30 1525 AC 08/30 IV 09/29 1526 1529 Sodium Chloride 1,000 ML .[id number] 08/30 1525 AC 08/31 IV 09/29 1446 0227 Morphine Sulfate 0 .STK-MED ONE 08/30 1524 DC 0 08/30 IV 1530 Morphine Sulfate 2 MG Q4H PRN PRN 08/30 1505 DC IV 09/29 1504 Hydromorphone HCl 0 .STK-MED ONE 08/30 1435 DC .ROUTE Hydromorphone HCl 0 .STK-MED ONE 08/30 1427 DC .ROUTE Cefazolin Sodium 2,000 MG ONCALL 08/30 1100 DC IV 09/06 1101 [place] Oil/[place]ish 1 XIANG Q12HR 08/29 2100 CKD 08/31 Balsam/Trypsin TOPICAL 09/28 210 0805 Clotrimazole 1 XIANG BID 08/29 2100 CKD 08/31 TOPICAL 09/28 2101 0806 Pantoprazole 40 MG Q12HR 08/29 2100 AC 08/31 PO 09/28 2101 0805 Vitamin B Complex/ 1 TAB BID 08/28 2100 CKD Vitamin C PO 09/27 210 0804 Zolpidem Tartrate 5 MG BEDTIME PRN PRN 08/28 19 40 AC 08/30 PO 09/27 1941 2100 Ferric Sodium 125 MG Q24H 08/27 0900 AC 08/31 Gluconate Complex IV 09/01 0959 0810 Sodium Chloride 100 ML Atorvastatin Calcium 40 MG BEDTIME 08/26 2100 D C 08/29 PO 09/25 2101 2104 Tramadol HCl 100 MG TID PRN PRN 08/26 1120 AC 08/30 PO 09/25 1115 2059 Citalopram 40 MG DAILY 08/26 09 AC 08/31 Hydrobromide PO 09/25 0901 0804 Hydrochlorothiazide 25 MG DAILY 08/26 09 AC 0 08/31 PO 09/25 0901 1150 Lisinopril 20 MG DAILY 08/26 09 AC 08/31 PO 09/25 0901 1150 Metoprolol Tartrate 25 MG BID 08/26 09 AC PO 09/25 0901 0804 Sucralfate 1 GM QID 08/26 09 AC 08/31 PO 09/25 0901 1207 Morphine Sulfate 1 MG Q4H PRN PRN 08/26 0040 DC 08/30 IV 09/25 0041 0134 SEE DICTATION Electronically Signed by Jani Mckoy MD 08/31/18 at 1420 RPT #:[id number] END OF REPORT 2018-08-31 10:34:00-00:00 [facility] [place] [facility] Podiatry Progress Note REPORT#:[id number] REPORT STATUS: Signed DATE:08/31/18 TIME: 1034 PATIENT: LEIGH FRYE UNIT #: [id number] [address]OM/BED: [address] : 80 AGE: 38 SEX: F ATTEND: Johana Mckoy MD ADM AUTHOR: Malu Stiles DPM R1 * ALL edits or amendments must be made on the el ectronic/computer document * Subjective HPI: Pt states her fet are doing much better with the Venelex/Clotrimazole applications. SHe notices less cracks an d overall improved flakiness. No pedal complaints at this time. Review of Systems Systems reviewed negative: allergy/Immun, consti tutional, respiratory Objective Current Medications Medications: Active Meds + DC'd Last 24 Hrs Desmopressin Acetate 2 MCG ONCE ONE IV (DC) Sodium Chloride 50 ML Sodium Chloride 1,000 ML BOLUS ONCE ONE IV (DC) Docusate Sodium 100 MG BID PO Mupirocin 1 APPLIC BID NASAL Hydrocodone Bitart/Acetaminophen 1 TAB Q4H PRN P RN PO Hydrocodone Bitart/Acetaminophen 2 TAB Q4H PRN P RN PO Sugammadex Sodium 200 MG .STK-MED ONE Z (DC) Phenol 1 SPRAY Q4H PRN PRN MM Hydrocodone Bitart/Acetaminophen 1 TAB Q4H PRN P RN PO (DC) Hydrocodone Bitart/Acetaminophen 0 .STK-MED ONE PO (DC) Hydrocodone Bitart/Acetaminophen 1 TAB Q4H PRN P RN PO (DC) Hydrocodone Bitart/Acetaminophen 2 TAB Q4H PRN P RN PO (DC) Ampicillin Sodium/Sulbactam Sodium 3,000 MG Q6HR IV Sodium Chloride 100 ML Acetaminophen 650 MG Q4H PRN PRN PO Morphine Sulfate 4 MG Q4H PRN PRN IV Ondansetron HCl 4 MG Q4H PRN PRN IV Sodium Chloride 1,000 ML .[id number] IV Morphine Sulfate 0 .STK-MED ONE IV (DC) Morphine Sulfate 2 MG Q4H PRN PRN IV (DC) Hydromorphone HCl 0 .STK-MED ONE .ROUTE (DC) Hydromorphone HCl 0 .STK-MED ONE .ROUTE (DC) Fentanyl Citrate 0 .STK-MED ONE .ROUTE (DC) Cefazolin Sodium 0 .STK-MED ONE .ROUTE (DC) Lidocaine HCl 0 .STK-MED ONE .ROUTE (DC) Rocuronium [place] 0 .STK-MED ONE .ROUTE (DC) Succinylcholine Chloride 0 .STK-MED ONE .ROUTE ( DC) Fentanyl Citrate 0 .STK-MED ONE .ROUTE (DC) Midazolam HCl 0 .STK-MED ONE .ROUTE (DC) Propofol 0 .STK-MED ONE .ROUTE (DC) Cefazolin Sodium 2,000 MG ONCALL IV (DC) [place] Oil/Swedish Balsam/Trypsin 1 XIANG Q12HR T OPICAL (CKD) Clotrimazole 1 XIANG BID TOPICAL (CKD) Pantoprazole 40 MG Q12HR PO Vitamin B Complex/Vitamin C 1 TAB BID PO (CKD) Zolpidem Tartrate 5 MG BEDTIME PRN PRN PO Ferric Sodium Gluconate Complex 125 MG Q24H IV Sodium Chloride 100 ML Atorvastatin Calcium 40 MG BEDTIME PO (DC) Tramadol HCl 100 MG TID PRN PRN PO Citalopram Hydrobromide 40 MG DAILY PO Hydrochlorothiazide 25 MG DAILY PO Lisinopril 20 MG DAILY PO Metoprolol Tartrate 25 MG BID PO Sucralfate 1 GM QID PO Morphine Sulfate 1 MG Q4H PRN PRN IV (DC) Physical Exam General appearance: alert, awake Head/Eyes: atraumatic, normocephalic Respiratory: no distress Extremities: Left moves all, Left normal tone, Left pedal pulses, Left warm, Right moves all, Right normal tone, Right pedal pulses, Right war m LE vascular pulse assess: 2+ R posterior tibialis, 2+ L posterior tibialis , 2+ R dorsalis pedis, 2+ L dorsalis pedis Capillary refill: Capillary refill (in seconds): < 3 seconds Right foot, < 3 seconds Left foot Skin: Xerotic scaly palmar s kin at michelle b/l. Fissuring noted b/l. nO open wounds, or SOI. Results Findings/Data: Laboratory Tests: 08/31 08/31 08/31 08/31 08/30 0755 0054 0054 0030 1644 Chemistry Sodium (137 - 145 MMOL/L) 142 Cortisol Baseline (1.7 - 22.7 ug/dL) 78.90 H Urines Ur Specific Beatty (1.003 - 1.030) 1.010 1.005 1.025 Ur Random Sodium (27 - 287 MMOL/L) 91 08/30 08/30 08/30 1545 1545 1049 Chemistry Sodium (137 - 145 MMOL/L) 139 Potassium (3.5 - 5.1 MMOL/L) 4.1 Chloride (98 - 107 MMOL/L) 107 Carbon Dioxide (22 - 30 MMOL/L) 24 BUN (7 - 17 MG/DL) 15 Creatinine (0.52 - 1.04 MG/DL) 0.80 Glomerular Filtr Rate > 60 Glucose (74 - 106 MG/DL) 137 H Calcium (8.4 - 10.2 MG/DL) 9.2 Beta HCG, Quant (IU/L) < 5.0 Cortisol Baseline (1.7 - 22.7 ug/dL) 46.60 H Hematology WBC (3.8 - 9.8 K/MM3) 10.6 H RBC (3.58 - 4.97 M/MM3) 4.24 Hgb (11.2 - 14.9 G/DL) 9.1 L Hct (33.2 - 43.5 %) 30.9 L MCV (80.7 - 99.1 fL) 73 L MCH (27.0 - 34.1 pg) 21.5 L MCHC (32.2 - 35.7 %) 29.4 L RDW (12.1 - 15.2 %) 17.9 H Plt Count (129 - 368 K/MM3) 326 MPV (7.4 - 10.4 fl) 9.4 Neut % (Auto) (43 - 75 %) 78.2 H Lymph % (Auto) (14 - 44 %) 15.2 [place] % (Auto) (4 - 13 %) 4.9 Eos % (Auto) (0 - 6 %) 0.8 Baso % (Auto) (0 - 2 %) 0.2 Neut # (Auto) (2.0 - 7.6 K/mm3) 8.27 H Lymph # (Auto) (1.0 - 3.8 K/mm3) 1.61 [place] # (Auto) (0.1 - 0.8 K/mm3) 0.52 Eos # (Auto) (0.0 - 0.2 K/mm3) 0.08 Baso # (Auto) (0.0 - 0.2 K/mm3) 0.02 Immature Gran % (0.0 - 2.0 %) 0.7 Nucleated RBC % (0 - 1.0 %) 0.0 Nucleated RBCs # (Man) (0.0 - 0.1 K/mm3) 0.00 Recent Impressions: CAT SCAN - CT HEAD/BRAIN W/O CONT 08/31 0505 Report Impression - Status: SIGNED Entered: 08/31/2018 08 IMPRESSION: Interval postoperative changes of a transsphenoi or[place] resection of pituitary tumor with expected changes seen in th e region. Otherwise, no other intracranial abnormality. Impression By: [email or web address] - Keri Avila MD Diagnosis, Assessment Plan Free Text A P: 38 yo female with pmhx, of pituitary abigail noma and obesity consulted to the foot and ankle service for cracked feet. - Tinea pedis b/l - Xerosis b/l 08/29/18 - Pt seen and examined - CLotrimazole cream ordered - Venelex ordered - Pt instructed to apply ointments to plantar fe et 1-2x/day avoiding interdigtial spaces. - Podiatry signing off 08/31/18 - Pt seen and examined - Plantar foot fissures and xerosis is much impr gilberto - Pt is very satisfied with Venelex/Clotrimazole applications and notices herself a huge improvement in appearance and mary n. Pt states she will continue the treatmen t gladly since she has noticed a large improvement in her symptoms - No pedal complaints at this time. - Podiatry signing off Electronically Signed by Malu Stiles DPM R1 on 0 09/01/18 at 1043 RPT #:[id number] END OF REPORT 2018-08-31 10:34:00-00:00 [facility] ([facility]) Podiatry Progress Note REPORT#:[id number] REPORT STATUS: Signed DATE:08/31/18 TIME: 1034 PATIENT: LEIGH FRYE UNIT #: [id number] [address]: [address]: 80 AGE: 38 SEX: F ATTEND: Johana Mckoy MD ADM AUTHOR: Malu Stiles DPM R1 * ALL edits or amendments must be made on the el ectronic/computer document * Subjective HPI: Pt states her fet are doing much better with the Venelex/Clotrimazole applications. SHe notices less cracks an d overall improved flakiness. No pedal complaints at this time. Review of Systems Systems reviewed negative: allergy/Immun, consti tutional, respiratory Objective Current Medications Medications: Active Meds + DC'd Last 24 Hrs Desmopressin Acetate 2 MCG ONCE ONE IV (DC) Sodium Chloride 50 ML Sodium Chloride 1,000 ML BOLUS ONCE ONE IV (DC) Docusate Sodium 100 MG BID PO Mupirocin 1 APPLIC BID NASAL Hydrocodone Bitart/Acetaminophen 1 TAB Q4H PRN P RN PO Hydrocodone Bitart/Acetaminophen 2 TAB Q4H PRN P RN PO Sugammadex Sodium 200 MG .STK-MED ONE Z (DC) Phenol 1 SPRAY Q4H PRN PRN MM Hydrocodone Bitart/Acetaminophen 1 TAB Q4H PRN P RN PO (DC) Hydrocodone Bitart/Acetaminophen 0 .STK-MED ONE PO (DC) Hydrocodone Bitart/Acetaminophen 1 TAB Q4H PRN P RN PO (DC) Hydrocodone Bitart/Acetaminophen 2 TAB Q4H PRN P RN PO (DC) Ampicillin Sodium/Sulbactam Sodium 3,000 MG Q6HR IV Sodium Chloride 100 ML Acetaminophen 650 MG Q4H PRN PRN PO Morphine Sulfate 4 MG Q4H PRN PRN IV Ondansetron HCl 4 MG Q4H PRN PRN IV Sodium Chloride 1,000 ML .[id number] IV Morphine Sulfate 0 .STK-MED ONE IV (DC) Morphine Sulfate 2 MG Q4H PRN PRN IV (DC) Hydromorphone HCl 0 .STK-MED ONE .ROUTE (DC) Hydromorphone HCl 0 .STK-MED ONE .ROUTE (DC) Fentanyl Citrate 0 .STK-MED ONE .ROUTE (DC) Cefazolin Sodium 0 .STK-MED ONE .ROUTE (DC) Lidocaine HCl 0 .STK-MED ONE .ROUTE (DC) Rocuronium [place] 0 .STK-MED ONE .ROUTE (DC) Succinylcholine Chloride 0 .STK-MED ONE .ROUTE ( DC) Fentanyl Citrate 0 .STK-MED ONE .ROUTE (DC) Midazolam HCl 0 .STK-MED ONE .ROUTE (DC) Propofol 0 .STK-MED ONE .ROUTE (DC) Cefazolin Sodium 2,000 MG ONCALL IV (DC) [place] Oil/Swedish Balsam/Trypsin 1 XIANG Q12HR T OPICAL (CKD) Clotrimazole 1 XIANG BID TOPICAL (CKD) Pantoprazole 40 MG Q12HR PO Vitamin B Complex/Vitamin C 1 TAB BID PO (CKD) Zolpidem Tartrate 5 MG BEDTIME PRN PRN PO Ferric Sodium Gluconate Complex 125 MG Q24H IV Sodium Chloride 100 ML Atorvastatin Calcium 40 MG BEDTIME PO (DC) Tramadol HCl 100 MG TID PRN PRN PO Citalopram Hydrobromide 40 MG DAILY PO Hydrochlorothiazide 25 MG DAILY PO Lisinopril 20 MG DAILY PO Metoprolol Tartrate 25 MG BID PO Sucralfate 1 GM QID PO Morphine Sulfate 1 MG Q4H PRN PRN IV (DC) Physical Exam General appearance: alert, awake Head/Eyes: atraumatic, normocephalic Respiratory: no distress Extremities: Left moves all, Left normal tone, Left pedal pulses, Left warm, Right moves all, Right normal tone, Right pedal pulses, Right war m LE vascular pulse assess: 2+ R posterior tibialis, 2+ L posterior tibialis , 2+ R dorsalis pedis, 2+ L dorsalis pedis Capillary refill: Capillary refill (in seconds): < 3 seconds Right foot, < 3 seconds Left foot Skin: Xerotic scaly palmar s kin at michelle b/l. Fissuring noted b/l. nO open wounds, or SOI. Results Findings/Data: Laboratory Tests: 08/31 08/31 08/31 08/31 08/30 0755 0054 0054 0030 1644 Chemistry Sodium (137 - 145 MMOL/L) 142 Cortisol Baseline (1.7 - 22.7 ug/dL) 78.90 H Urines Ur Specific Beat[place] (1.003 - 1.030) 1.010 1.005 1.025 Ur Random Sodium (27 - 287 MMOL/L) 91 08/30 08/30 08/30 1545 1545 1049 Chemistry Sodium (137 - 145 MMOL/L) 139 Potassium (3.5 - 5.1 MMOL/L) 4.1 Chloride (98 - 107 MMOL/L) 107 Carbon Dioxide (22 - 30 MMOL/L) 24 BUN (7 - 17 MG/DL) 15 Creatinine (0.52 - 1.04 MG/DL) 0.80 Glomerular Filtr Rate > 60 Glucose (74 - 106 MG/DL) 137 H Calcium (8.4 - 10.2 MG/DL) 9.2 Beta HCG, Quant (IU/L) < 5.0 Cortisol Baseline (1.7 - 22.7 ug/dL) 46.60 H Hematology WBC (3.8 - 9.8 K/MM3) 10.6 H RBC (3.58 - 4.97 M/MM3) 4.24 Hgb (11.2 - 14.9 G/DL) 9.1 L Hct (33.2 - 43.5 %) 30.9 L MCV (80.7 - 99.1 fL) 73 L MCH (27.0 - 34.1 pg) 21.5 L MCHC (32.2 - 35.7 %) 29.4 L RDW (12.1 - 15.2 %) 17.9 H Plt Count (129 - 368 K/MM3) 326 MPV (7.4 - 10.4 fl) 9.4 Neut % (Auto) (43 - 75 %) 78.2 H Lymph % (Auto) (14 - 44 %) 15.2 [place] % (Auto) (4 - 13 %) 4.9 Eos % (Auto) (0 - 6 %) 0.8 Baso % (Auto) (0 - 2 %) 0.2 Neut # (Auto) (2.0 - 7.6 K/mm3) 8.27 H Lymph # (Auto) (1.0 - 3.8 K/mm3) 1.61 [place] # (Auto) (0.1 - 0.8 K/mm3) 0.52 Eos # (Auto) (0.0 - 0.2 K/mm3) 0.08 Baso # (Auto) (0.0 - 0.2 K/mm3) 0.02 Immature Gran % (0.0 - 2.0 %) 0.7 Nucleated RBC % (0 - 1.0 %) 0.0 Nucleated RBCs # (Man) (0.0 - 0.1 K/mm3) 0.00 Recent Impressions: CAT SCAN - CT HEAD/BRAIN W/O CONT 08/31 0505 Report Impression - Status: SIGNED Entered: 08/31/2018 0820 IMPRESSION: Interval postoperative changes of a transsphenoi [place] resection of pituitary tumor with expected changes seen in th e region. Otherwise, no other intracranial abnormality. Impression By: [email or web address] - Keri Avila MD Diagnosis, Assessment Plan Free Text A P: 38 yo female with pmhx, of pituitary abigail noma and obesity consulted to the foot and ankle service for cracked feet. - Tinea pedis b/l - Xerosis b/l 08/29/18 - Pt seen and examined - CLotrimazole cream ordered - Venelex ordered - Pt instructed to apply ointments to plantar fe et 1-2x/day avoiding interdigtial spaces. - Podiatry signing off 08/31/18 - Pt seen and examined - Plantar foot fissures and xerosis is much impr gilberto - Pt is very satisfied with Venelex/Clotrimazole applications and notices herself a huge improvement in appearance and mary n. Pt states she will continue the treatmen t gladly since she has noticed a large improvement in her symptoms - No pedal complaints at this time. - Podiatry signing off Electronically Signed by Malu Stiles DPM R1 on 0 09/01/18 at 1043 Electronically Signed by Matilde Burnham DPM on at 1434 RPT #:[id number] END OF REPORT 2018-08-31 07:34:00-00:00 [facility] ([facility]) Neurosurgical Progress Note REPORT#:[id number] REPORT STATUS: Signed DATE:08/31/18 TIME: 733 PATIENT: LEIGH FRYE UNIT #: [id number] [address]: [address] : 80 AGE: 38 SEX: F ATTEND: Johana Mckoy MD ADM AUTHOR: Ozzy Viera MD * ALL edits or amendments must be made on the el [employer]/computer document * Subjective Chief Complaint: She states that her vision h as improved. She had increase in urine output around midnight. DDAVP given by Dr. Burgos. She still has headaches and her dressing has been changed, the last one changed around midnig ht. Objective General VS/I O: Vital Signs Date Temp Pulse Resp B/P B/P Mean Pulse Ox FiO2 08/30-08/31 97.6-98.7 63-90 14-37 114-178/56-80 80-115 92-100 24 hour I O ending at 0700: 08/31 0700 08/30 1900 Intake Total 3155.00 3395.00 Output Total 3065 260 Balance 90.00 3135.00 Intake, IV 2075.00 3275.00 Intake, Oral 1080 120 Output, Urine 3065 260 Physical Exam General appearance: alert, awake, oriented Neuro/REFERRAL COORDINATOR: alert, oriented X 3, CN II-XII intact, EOMI, PERRL, normal reflexes, normal speech, reflexes equal bilat, no motor de ficits, no sensory deficits Results Findings/Data: Laboratory Tests 08/31 08/31 08/30 08/30 08/30 0054 0054 1545 1545 1049 Chemistry Sodium (137 - 145 MMOL/L) 142 139 Potassium (3.5 - 5.1 MMOL/L) 4.1 Chloride (98 - 107 MMOL/L) 107 Carbon Dioxide (22 - 30 MMOL/L) 24 BUN (7 - 17 MG/DL) 15 Creatinine (0.52 - 1.04 MG/DL) 0.80 Glomerular Filtr Rate > 60 Glucose (74 - 106 MG/DL) 137 H Calcium (8.4 - 10.2 MG/DL) 9.2 Beta HCG, Quant (IU/L) < 5.0 Cortisol Baseline (1.7 - 22.7 ug/dL) 78.90 H 46 .60 H Laboratory Tests 08/30 1545 Hematology WBC (3.8 - 9.8 K/MM3) 10.6 H RBC (3.58 - 4.97 M/MM3) 4.24 Hgb (11.2 - 14.9 G/DL) 9.1 L Hct (33.2 - 43.5 %) 30.9 L MCV (80.7 - 99.1 fL) 73 L MCH (27.0 - 34.1 pg) 21.5 L MCHC (32.2 - 35.7 %) 29.4 L RDW (12.1 - 15.2 %) 17.9 H Plt Count (129 - 368 K/MM3) 326 MPV (7.4 - 10.4 fl) 9.4 Neut % (Auto) (43 - 75 %) 78.2 H Lymph % (Auto) (14 - 44 %) 15.2 Merrick % (Auto) (4 - 13 %) 4.9 Eos % (Auto) (0 - 6 %) 0.8 Baso % (Auto) (0 - 2 %) 0.2 Neut # (Auto) (2.0 - 7.6 K/mm3) 8.27 H Lymph # (Auto) (1.0 - 3.8 K/mm3) 1.61 [place] # (Auto) (0.1 - 0.8 K/mm3) 0.52 Eos # (Auto) (0.0 - 0.2 K/mm3) 0.08 Baso # (Auto) (0.0 - 0.2 K/mm3) 0.02 Immature Gran % (0.0 - 2.0 %) 0.7 Nucleated RBC % (0 - 1.0 %) 0.0 Nucleated RBCs # (Man) (0.0 - 0.1 K/mm3) 0.00 Laboratory Tests 08/31 08/30 0030 1644 Urines Ur Specific Beatty (1.003 - 1.030) 1.005 1.025 Diagnosis, Assessment Plan Free Text A P: A: 38 year old female now POD#1 from transspheno idal resection of pituitary adenoma P: Cont to observe drainage from nose. May need LD if drainage is persistent. It has slowed down Cont to monitor Urine SG, Na and urine output. Cont to monitor in ICU Electronically Signed by Ozzy Viera MD on 08/20 05/10 at 0737 RPT #:[id number] END OF REPORT 2018-08-31 01:45:00-00:00 [facility] ([facility]) Critical Care Progress Note REPORT#:[id number] REPORT STATUS: Signed DATE:08/31/18 TIME: 0145 PATIENT: LEIGH FRYE UNIT #: [id number] [address]: [address] : 80 AGE: 38 SEX: F ATTEND: Johana Mckoy MD ADM AUTHOR: Deedee Burgos MD * ALL edits or amendments must be made on the el [employer]/computer document * Subjective Comments: Patient seen and examined multiple times through out the course of the shift. With the past 2 hours the patient has put out ab out 1100 cc of urine. Urine specific gravity was 1.005. Serum sodium has inc reased from 139 up to 142 between the last 2 checks. This coupled with her large amount of urine output is highly concerning for development of diabetes insipidus. Patient will be bolused 1 L of half-normal saline, I will also g thomas her 1 dose of intravenous DDAVP (2 mcg). Due to upper extremity swell ing postoperatively as well as body habitus patient' s IV access was lost last night, ultrasound-guid ed 18-gauge left AC IV placed with good blood return. Objective General VS/I O Last Documented: Result Date Time Pulse Ox 97 08/31 0100 B/P 148/65 08/31 0100 B/P Mean 93 08/31 0100 Pulse 79 08/31 0100 Resp 20 08/31 0100 Temp 97.6 08/31 0000 O2 Delivery Face mist tent 08/30 1615 O2 Flow Rate 10.859287 08/30 1615 24 hour I O ending at 0700: 08/31 0700 08/30 1900 Intake Total 195.00 3395.00 Output Total 1400 260 Balance -1205.00 3135.00 Intake, IV 75.00 3275.00 Intake, Oral 120 120 Output, Urine 1400 260 Medications: Active Meds + DC'd Last 24 Hrs Sodium Chloride 1,000 ML BOLUS ONCE ONE IV Docusate Sodium 100 MG BID PO Mupirocin 1 APPLIC BID NASAL Hydrocodone Bitart/Acetaminophen 1 TAB Q4H PRN P RN PO Hydrocodone Bitart/Acetaminophen 2 TAB Q4H PRN P RN PO Sugammadex Sodium 200 MG .STK-MED ONE Z (DC) Phenol 1 SPRAY Q4H PRN PRN MM Hydrocodone Bitart/Acetaminophen 1 TAB Q4H PRN P RN PO (DC) Hydrocodone Bitart/Acetaminophen 0 .STK-MED ONE PO (DC) Hydrocodone Bitart/Acetaminophen 1 TAB Q4H PRN P RN PO (DC) Hydrocodone Bitart/Acetaminophen 2 TAB Q4H PRN P RN PO (DC) Ampicillin Sodium/Sulbactam Sodium 3,000 MG Q6HR IV Sodium Chloride 100 ML Acetaminophen 650 MG Q4H PRN PRN PO Morphine Sulfate 4 MG Q4H PRN PRN IV Ondansetron HCl 4 MG Q4H PRN PRN IV Sodium Chloride 1,000 ML .[id number] IV Morphine Sulfate 0 .STK-MED ONE IV (DC) Morphine Sulfate 2 MG Q4H PRN PRN IV (DC) Hydromorphone HCl 0 .STK-MED ONE .ROUTE (DC) Hydromorphone HCl 0 .STK-MED ONE .ROUTE (DC) Fentanyl Citrate 0 .STK-MED ONE .ROUTE (DC) Cefazolin Sodium 0 .STK-MED ONE .ROUTE (DC) Lidocaine HCl 0 .STK-MED ONE .ROUTE (DC) Rocuronium [place] 0 .STK-MED ONE .ROUTE (DC) Succinylcholine Chloride 0 .STK-MED ONE .ROUTE ( DC) Fentanyl Citrate 0 .STK-MED ONE .ROUTE (DC) Midazolam HCl 0 .STK-MED ONE .ROUTE (DC) Propofol 0 .STK-MED ONE .ROUTE (DC) Cefazolin Sodium 2,000 MG ONCALL IV (DC) Bacitracin 0 .STK-MED ONE .ROUTE (DC) Thrombin 0 .STK-MED ONE .ROUTE (DC) Cefazolin Sodium 0 .STK-MED ONE .ROUTE (DC) Oxymetazoline HCl 0 .STK-MED ONE .ROUTE (DC) Bupivacaine HCl 0 .STK-MED ONE .ROUTE (DC) Cocaine HCl 0 .STK-MED ONE .ROUTE (DC) Epinephrine 0 .STK-MED ONE .ROUTE (DC) [place] Oil/Swedish Balsam/Trypsin 1 XIANG Q12HR T OPICAL (CKD) Clotrimazole 1 XIANG BID TOPICAL (CKD) Pantoprazole 40 MG Q12HR PO Vitamin B Complex/Vitamin C 1 TAB BID PO (CKD) Zolpidem Tartrate 5 MG BEDTIME PRN PRN PO Hydroxocobalamin 1,000 MCG DAILY IM (DC) Ferric Sodium Gluconate Complex 125 MG Q24H IV Sodium Chloride 100 ML Atorvastatin Calcium 40 MG BEDTIME PO (DC) Tramadol HCl 100 MG TID PRN PRN PO Citalopram Hydrobromide 40 MG DAILY PO Hydrochlorothiazide 25 MG DAILY PO Lisinopril 20 MG DAILY PO Metoprolol Tartrate 25 MG BID PO Sucralfate 1 GM QID PO Morphine Sulfate 1 MG Q4H PRN PRN IV (DC) Physical Exam General appearance: alert, awake, oriented Head/Eyes: atraumatic, normocephalic, PERRL ENT: normal dentition, nasal packing, with dress ing changed 3 times thus far during shift, neuroSx aware Neck: full range of motion, non-tender, no JVD Cardiovascular: normal heart sounds, normal S1 S 2, normal rate and rhythm, no murmur Respiratory/Chest: aerating well, clear to auscultation, symmetric expansion, no distress Abdomen: soft, non-tender, normal bowel sounds Genitourinary: rubin, urine Extremities: moves all, normal capillary refill, normal temperature Musculoskeletal: full range of motion, normal in spection Neuro/REFERRAL COORDINATOR: alert, oriented X 3, no motor deficit s, no sensory deficits Diagnosis, Assessment Plan Problem List/A P: 1. 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 MANAGER and concern for diabetes insipidus developing ddavp prn neuro checks hourly Critical Care Time excluding separately reportab le procedures: 31 mins Critical Care time includes: Patient management by me, Time spent at bedside, Reviewing test results, Reviewing imaging, Discu ssing patient care, Documentation in record at 0148 [facility][id number] END OF REPORT 2018-08-30 15:44:00-00:00 [facility] ([facility]) Critical Care Consult Note REPORT#:[id number] REPORT STATUS: Signed DATE:08/30/18 TIME: 1544 PATIENT: LEIGH FRYE UNIT #: [id number] [address] : [address] AGE: 38 SEX: F ATTEND: Tho Mckoy MD ADM AUTHOR: RO CEDILLO LUBRICATION SERVICER- * ALL edits or amendments must be made on the el ectronic/computer document * History of Present Illness HPI Requesting clinician: Dr. Mckoy Reason for consult: critical care management Chief complaint: headache and back pain HPI: Pt is s/p transsphenoidal pituitary tumor resect ion She is alert and oriented x 4, c/o headache, allan k pain, and right groin "tightness". She was just medicated with morphin e 4 mg ivp and is requesting more stating "at [place] they were giving me 6mg of morphine just for my headaches". 4x[address] to nose no drainage not ed. lungs cta on room air, pt morbidly obese, moving all extremities equally w ell. piv arterial line with flat waveform RN at bedside a ttempting to get accurate waveform rubin poc: labs pending per neuro surgery, yvette ch for increased urine output, at risk for diabetes insipidus Previous medical history: migraines, morbidly ob khai, hypertension, reflux esophagitis, depression, thyroid disorder previous surgical history: csection, appendectom y, colon resection for ca, lithotripsy, lab banding social: if she is unable to make her own medical decisions she wants her brother to make them for her, she also states th at he has medical power of litigation attorney associate, she is an ex smoker, she has one child whom is 16 years old History - Adult longitudinal Past medical history: Reports: Thyroid disorder. Additional surgical history: Lap band Alcohol use: Denies EtOH use Drug use: Denies recreational drugs Smoking status for patients 13 years old or olde r: Former Smoker Medications: Home Medications: Medication Dose/Rte/Freq Days Qty Entered Last Max Daily Dose Reviewed LISINOPRIL/HCTZ 1 TAB PO DAILY 08/25/18 9 (ZESTORETIC 20/25 MG) 2341 0126 Strength: 1 EACH TAB ESCITALOPRAM (LEXAPRO) 40 MG PO DAILY 08/25/18 08/26/18 Strength: 20 MG TAB 2343 0126 ISOSORBIDE 30 MG PO DAILY 08/25/18 08/26/18 MONONITRATE SR 2346 0126 (IMDUR) Strength: 30 MG TAB.SR.24H FAMOTIDINE (PEPCID) 20 MG PO BID 08/25/1808/26 Strength: 40 MG TAB 2347 0126 SUMAtriptan (IMITREX) 50 MG PO ONCEPRN 08/25/18 08/26/18 Strength: 50 MG TAB 2348 0126 ONDANSETRON ODT 4 MG PO BID 08/25/18 08/26/18 (ZOFRAN ODT) 2349 0126 Strength: 4 MG TAB.RAPDIS ATORVASTATIN (LIPITOR) 40 MG PO BEDTIME 9 08/26/18 Strength: 40 MG TAB 2350 0126 hydrOXYzine HCL (ATARAX) 50 MG PO 08/25/1810/07 Strength: 50 MG TAB DAILY PRN PRN SLEEP 2350 012 6 KETOROLAC (TORADOL) 10 MG PO 08/25/18 08/26/18 Strength: 10 MG TAB Q6H PRN PRN PAIN 2351 0126 METOPROLOL TARTRATE 25 MG PO BID 08/25/1808/26 (LOPRESSOR) 2351 0126 Strength: [address] 40 MG PO DAILY 08/25/18 9 (PROTONIX) 2351 0126 Strength: 40 MG TAB. SUCRALFATE (CARAFATE) 1 GM PO QID 08/25/1810/07 Strength: 1 GM TAB 2352 0126 traMADol (ULTRAM) 50 MG PO 08/25/18 08/26/18 Strength: 50 MG TAB TID PRN PRN PAIN 2352 0126 RIVAROXABAN (XARELTO) 20 MG PO DAILY 08/26/18 08/26/18 Strength: 20 MG TAB 0106 0126 Current Hospital Medications: Anti-Infective Agents Sig/Roshan Start time Last Medication Dose Route Stop Time Status Admin Ampicillin Sodium/ 3,000 MG Q6HR 08/30 1630 AC Sulbactam Sodium IV 09/09 1759 (UNASYN 3GM IJ) Sodium Chloride 100 ML (SODIUM CHLORIDE 0.9%) Cefazolin Sodium 0 .STK-MED ONE 08/30 1308 DC (ANCEF) .ROUTE Cefazolin Sodium 2,000 MG ONCALL 08/30 1100 DC (ANCEF) IV 09/06 1101 Cefazolin Sodium 0 .STK-MED ONE 08/30 1008 DC (ANCEF) .ROUTE Autonomic Drugs Sig/Roshan Start time Last Medication Dose Route Stop Time Status Admin Rocuronium [place] 0 .STK-MED ONE 08/30 1308 DC (ZEMURON) .ROUTE Succinylcholine 0 .STK-MED ONE 08/30 1308 DC Chloride .ROUTE (QUELICIN FLIPTOP (ANECTINE)) Epinephrine 0 .STK-MED ONE 08/30 0952 DC (ADRENALIN) .ROUTE Blood Formation,Coagulation Sig/Roshan Start time Last Medication Dose Route Stop Time Status Admin Thrombin 0 .STK-MED ONE 08/30 1021 DC (RECOTHROM) .ROUTE Ferric Sodium 125 MG Q24H 08/27 0900 AC 08/29 Gluconate Complex IV 09/01 0959 1028 (FERRLECIT 62.5MG/ 5ML AMPUL) Sodium Chloride 100 ML (SODIUM CHLORIDE 0.9%) Cardiovascular Drugs Sig/Roshan Start time Last Medication Dose Route Stop Time Status Admin Lidocaine HCl 0 .STK-MED ONE 08/30 1308 DC (XYLOCAINE 1%) .ROUTE Atorvastatin Calcium 40 MG BEDTIME 08/26 2100 D C 08/29 (LIPITOR) PO 09/25 2101 2104 Lisinopril 20 MG DAILY 08/26 899 AC 08/29 (PRINIVIL) PO 09/25 0901 1026 Metoprolol Tartrate 25 MG BID 08/26 899 AC (LOPRESSOR) PO 09/25 0901 2106 Central Nervous System Agents Sig/Roshan Start time Last Medication Dose Route Stop Time Status Admin Acetaminophen 650 MG Q4H PRN PRN 08/30 1525 AC (TYLENOL) PO 09/29 1446 Morphine Sulfate 4 MG Q4H PRN PRN 08/30 1525 AC (morphine SULFATE (C- IV 09/29 1522 II)) Morphine Sulfate 0 .STK-MED ONE 08/30 1524 DC 0 08/30 (morphine SULFATE (C- IV 1530 II)) Morphine Sulfate 2 MG Q4H PRN PRN 08/30 1505 DC (morphine SULFATE (C- IV 09/29 1504 II)) Hydromorphone HCl 0 .STK-MED ONE 08/30 1435 DC (DILAUDID (C-II)) .ROUTE Hydromorphone HCl 0 .STK-MED ONE 08/30 1427 DC (DILAUDID (C-II)) .ROUTE Fentanyl Citrate 0 .STK-MED ONE 08/30 1415 DC (SUBLIMAZE (C-II)) .ROUTE Fentanyl Citrate 0 .STK-MED ONE 08/30 1153 DC (fentaNYL CITRATE (C- .ROUTE II)) Midazolam HCl 0 .STK-MED ONE 08/30 1153 DC (VERSED (C-IV)) .ROUTE Propofol 0 .STK-MED ONE 08/30 1153 DC (DIPRIVAN) .ROUTE Zolpidem Tartrate 5 MG BEDTIME PRN PRN 08/28 19 40 AC 08/29 (AMBIEN (C-IV)) PO 09/27 1941 2113 Tramadol HCl 100 MG TID PRN PRN 08/26 1120 AC 0 08/29 (ULTRAM) PO 09/25 1115 2217 Citalopram 40 MG DAILY 08/26 899 AC 08/29 Hydrobromide PO 09/25 0901 1026 (CeleXA) Morphine Sulfate 1 MG Q4H PRN PRN 08/26 0040 DC 08/30 (morphine SULFATE (C- IV 09/25 0041 0134 II)) Diagnostic Agents Sig/Roshan Start time Last Medication Dose Route Stop Time Status Admin Iopamidol 100 ML STAT STA 08/29 1721 DC 08/29 (ISOVUE-300) IV 08/29 1722 1739 Iopamidol 100 ML STAT STA 08/29 1659 DC (ISOVUE-370) IV 08/29 1700 Electrolytic, Caloric, And Yvette Sig/Roshan Start time Last Medication Dose Route Stop Time Status Admin Sodium Chloride 1,000 ML .[id number] 08/30 1525 AC (SODIUM CHLORIDE IV 09/29 1446 0.9%) Hydrochlorothiazide 25 MG DAILY 08/26 09 AC 0 08/29 (HYDRODIURIL) PO 09/25 0901 1026 Eye, Ear, Nose And Throat (Een Sig/Roshan Start time Last Medication Dose Route Stop Time Status Admin Bacitracin 0 .STK-MED ONE 08/30 1023 DC (BACITRACIN) .ROUTE Oxymetazoline HCl 0 .STK-MED ONE 08/30 0954 DC (AFRIN) .ROUTE Gastrointestinal Drugs Sig/Roshan Start time Last Medication Dose Route Stop Time Status Admin Docusate Sodium 100 MG BID 08/30 2100 AC (COLACE) PO 09/29 2100 Ondansetron HCl 4 MG Q4H PRN PRN 08/30 1525 AC 08/30 (ZOFRAN) IV 09/29 1526 1529 Pantoprazole 40 MG Q12HR 08/29 2100 AC 08/29 (PROTONIX) PO 09/28 2100 210 Sucralfate 1 GM QID 08/26 0900 AC 08/29 (CARAFATE) PO 09/25 09 210 Local Anesthetics (Parenteral) Sig/Roshan Start time Last Medication Dose Route Stop Time Status Admin Bupivacaine HCl 0 .STK-MED ONE 08/30 0953 DC (SENSORCAINE 0.25%) .ROUTE Skin And Mucous Membrane Agent Sig/Roshan Start time Last Medication Dose Route Stop Time Status Admin Cocaine HCl 0 .STK-MED ONE 08/30 0952 DC (COCAINE HCL (C-II)) .ROUTE [place] Oil/Swedish 1 XIANG Q12HR 08/29 2100 CKD 08/29 Balsam/Trypsin TOPICAL 09/28 (Venelex Ointment Packet) Clotrimazole 1 XIANG BID 08/29 2100 CKD 08/29 (LOTRIMIN) TOPICAL 09/28 2100 210 Vitamins Sig/Roshan Start time Last Medication Dose Route Stop Time Status Admin Vitamin B Complex/ 1 TAB BID 08/28 2100 CKD Vitamin C PO 09/27 2100 210 (NEPHRO-JOSÉ) Hydroxocobalamin 1,000 MCG DAILY 08/28 1000 DC 08/29 (VITAMIN B12 VIAL) IM 08/30 0901 1027 Allergies: Coded Allergies: No Known Allergies (08/25/18) Ambulatory status: Independent Review of Systems : Reports: other (tightness to right groin). Musculoskeletal: Reports: lumbar pain. Neuro: Reports: headache. Systems reviewed negative: allergy/Immun, cardio vascular, constitutional, endocrine, ENT, eyes, GI, heme, psych, respirato ry, skin Objective Physical Exam: VS/I O: Last Documented: Result Date Time O2 Delivery Face mist tent 08/30 1545 O2 Flow Rate [id number] 08/30 1545 Temp 36.5 08/30 1525 Pulse Ox 99 08/30 1057 B/P 128/71 08/30 1057 Pulse 63 08/30 1057 Resp 16 08/30 1057 B/P Mean 85.2 08/30 0726 24 hour I O ending at 0700: 08/30 0700 08/29 1900 Intake Total 480 Output Total 2550 800 Balance -2070 -800 Intake, Oral 480 Output, Urine 2550 800 Medications: Active Meds + DC'd Last 24 Hrs Docusate Sodium 100 MG BID PO Ampicillin Sodium/Sulbactam Sodium 3,000 MG Q6HR IV Sodium Chloride 100 ML Acetaminophen 650 MG Q4H PRN PRN PO Morphine Sulfate 4 MG Q4H PRN PRN IV Ondansetron HCl 4 MG Q4H PRN PRN IV Sodium Chloride 1,000 ML .[id number] IV Morphine Sulfate 0 .STK-MED ONE IV (DC) Morphine Sulfate 2 MG Q4H PRN PRN IV (DC) Hydromorphone HCl 0 .STK-MED ONE .ROUTE (DC) Hydromorphone HCl 0 .STK-MED ONE .ROUTE (DC) Fentanyl Citrate 0 .STK-MED ONE .ROUTE (DC) Cefazolin Sodium 0 .STK-MED ONE .ROUTE (DC) Lidocaine HCl 0 .STK-MED ONE .ROUTE (DC) Rocuronium [place] 0 .STK-MED ONE .ROUTE (DC) Succinylcholine Chloride 0 .STK-MED ONE .ROUTE ( DC) Fentanyl Citrate 0 .STK-MED ONE .ROUTE (DC) Midazolam HCl 0 .STK-MED ONE .ROUTE (DC) Propofol 0 .STK-MED ONE .ROUTE (DC) Cefazolin Sodium 2,000 MG ONCALL IV (DC) Bacitracin 0 .STK-MED ONE .ROUTE (DC) Thrombin 0 .STK-MED ONE .ROUTE (DC) Cefazolin Sodium 0 .STK-MED ONE .ROUTE (DC) Oxymetazoline HCl 0 .STK-MED ONE .ROUTE (DC) Bupivacaine HCl 0 .STK-MED ONE .ROUTE (DC) Cocaine HCl 0 .STK-MED ONE .ROUTE (DC) Epinephrine 0 .STK-MED ONE .ROUTE (DC) [place] Oil/Swedish Balsam/Trypsin 1 XIANG Q12HR T OPICAL (CKD) Clotrimazole 1 XIANG BID TOPICAL (CKD) Pantoprazole 40 MG Q12HR PO Iopamidol 100 ML STAT STA IV (DC) Iopamidol 100 ML STAT STA IV (DC) Vitamin B Complex/Vitamin C 1 TAB BID PO (CKD) Zolpidem Tartrate 5 MG BEDTIME PRN PRN PO Hydroxocobalamin 1,000 MCG DAILY IM (DC) Ferric Sodium Gluconate Complex 125 MG Q24H IV Sodium Chloride 100 ML Atorvastatin Calcium 40 MG BEDTIME PO (DC) Tramadol HCl 100 MG TID PRN PRN PO Citalopram Hydrobromide 40 MG DAILY PO Hydrochlorothiazide 25 MG DAILY PO Lisinopril 20 MG DAILY PO Metoprolol Tartrate 25 MG BID PO Sucralfate 1 GM QID PO Morphine Sulfate 1 MG Q4H PRN PRN IV (DC) General appearance: alert, awake, orient ed, no acute distress, conversational, mental status normal, no respiratory distress, m orbidly obese Head/Eyes: atraumatic, normocephalic, PERRL ENT: normal dentition, 4x4 to nose Neck: full range of motion, non-tender, no JVD Cardiovascular: normal heart sounds, normal S1 S 2, normal rate and rhythm, no murmur Respiratory/Chest: aerating well, clear to auscultation, symmetric expansion, no distress Abdomen: soft, non-tender, normal bowel sounds Genitourinary: rubin, urine Extremities: moves all, normal capillary refill, normal temperature Musculoskeletal: full range of motion, normal in spection Neuro/REFERRAL COORDINATOR: alert, oriented X 3, no motor deficit s, no sensory deficits Skin: dry, intact, normal color, normal temperat ure, no rash Psychiatry: normal affect Results: Findings/Data: Laboratory Tests 08/30/18 1545: [Embedded Image Not Available] Laboratory Tests 08/30 1049 Chemistry Beta HCG, Quant (IU/L) < 5.0 Laboratory Tests 08/30 0623 Coagulation INR (0.8 - 1.1) 1.0 APTT (22.0 - 33.0 SECONDS) 28.7 PT Patient/Control Mix (9.6 - 11.6 SECONDS) 10. 3 Laboratory Tests 08/30 1545 Hematology WBC (3.8 - 9.8 K/MM3) 10.6 H RBC (3.58 - 4.97 M/MM3) 4.24 Hgb (11.2 - 14.9 G/DL) 9.1 L Hct (33.2 - 43.5 %) 30.9 L MCV (80.7 - 99.1 fL) 73 L MCH (27.0 - 34.1 pg) 21.5 L MCHC (32.2 - 35.7 %) 29.4 L RDW (12.1 - 15.2 %) 17.9 H Plt Count (129 - 368 K/MM3) 326 MPV (7.4 - 10.4 fl) 9.4 Neut % (Auto) (43 - 75 %) 78.2 H Lymph % (Auto) (14 - 44 %) 15.2 [place] % (Auto) (4 - 13 %) 4.9 Eos % (Auto) (0 - 6 %) 0.8 Baso % (Auto) (0 - 2 %) 0.2 Neut # (Auto) (2.0 - 7.6 K/mm3) 8.27 H Lymph # (Auto) (1.0 - 3.8 K/mm3) 1.61 [place] # (Auto) (0.1 - 0.8 K/mm3) 0.52 Eos # (Auto) (0.0 - 0.2 K/mm3) 0.08 Baso # (Auto) (0.0 - 0.2 K/mm3) 0.02 Immature Gran % (0.0 - 2.0 %) 0.7 Nucleated RBC % (0 - 1.0 %) 0.0 Nucleated RBCs # (Man) (0.0 - 0.1 K/mm3) 0.00 Radiology data: Recent Impressions: CAT SCAN - CT HD/BR W W/O CONT 08/29 1720 Report Impression - Status: SIGNED Entered: 08/29/2018 1902 IMPRESSION: 1. Pituitary macroadenoma. Further evaluation wi MRI may be helpful. 2. Old right orbital blowout fracture with sublu xation of the inferior rectus muscle. Impression By: Farhan - Pranav Chaudhari M.D. Results: labs reviewed, rhythm personally rev'd, x-ray personally reviewed, current med profile rev'd, vital signs reviewed Treatment Prophylaxis Treatment Prophylaxis Rubin documentation: The data below has been impo rted from nursing documentation. Any exceptions have been noted below under Provider comments. _ Nursing Documentation Date rubin inserted: Date rubin discontinued: _ Provider comments: [placed i n the o.r., needs to be kept in place for strict i/o post surgery, concerned for pt may go into diabe gonzalez insipidus] Rubin status: day 1 Urine color: yellow Oxygen: room air Lines: arterial, peripheral Drains/tube: Drains/tube: urinary catheter Anti-infectives: ampicillin Ulcer prophylaxis: pantoprazole Diagnosis, Assessment Plan Diagnosis, Assessment Plan Problem List/A P: 1. 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 Critical care time: Minutes: 40 at 1623 RPT #:[id number] END OF REPORT 2018-08-30 15:44:00-00:00 [facility] ([facility]) Critical Care Consult Note REPORT#:[id number] REPORT STATUS: Signed DATE:08/30/18 TIME: 1544 PATIENT: LEIGH FRYE UNIT #: [id number] ROOM/BED: [facility] : 80 AGE: 38 SEX: F ATTEND: Johana Mckoy MD ADM AUTHOR: RO CEDILLO LUBRICATION SERVICER- * ALL edits or amendments must be made on the el [email or web address]/computer document * Ro Cedillo 08/30/18 1544: History of Present Illness HPI Requesting clinician: Dr. Mckoy Reason for consult: critical care management Chief complaint: headache and back pain HPI: Pt is s/p transsphenoidal pituitary tumor resect ion She is alert and oriented x 4, c/o headache, allan k pain, and right groin "tightness". She was just medicated with morphin e 4 mg ivp and is requesting more stating "at [place] they were giving me 6mg of morphine just for my headaches". 4x4 [address] to nose no drainage not ed. lungs cta on room air, pt morbidly obese, moving all extremities equally w ell. piv arterial line with flat waveform RN at bedside a ttempting to get accurate waveform rubin poc: labs pending per neuro surgery, yvette ch for increased urine output, at risk for diabetes insipidus Previous medical history: migraines, morbidly ob khai, hypertension, reflux esophagitis, depression, thyroid disorder previous surgical history: csection, appendectom y, colon resection for ca, lithotripsy, lab banding social: if she is unable to make her own medical decisions she wants her brother to make them for her, she also states th at he has medical power of litigation attorney associate, she is an ex smoker, she has one child whom is 16 years old History - Adult longitudinal Past medical history: Reports: Thyroid disorder. Additional surgical history: Lap band Alcohol use: Denies EtOH use Drug use: Denies recreational drugs Smoking status for patients 13 years old or olde r: Former Smoker Medications: Home Medications: Medication Dose/Rte/Freq Days Qty Entered Last Max Daily Dose Reviewed LISINOPRIL/HCTZ 1 TAB PO DAILY 08/25/18 9 (ZESTORETIC 20/25 MG) 2341 0126 Strength: 1 EACH TAB ESCITALOPRAM (LEXAPRO) 40 MG PO DAILY 08/25/18 08/26/18 Strength: 20 MG TAB 2343 0126 ISOSORBIDE 30 MG PO DAILY 08/25/18 08/26/18 MONONITRATE SR 2346 0126 (IMDUR) Strength: 30 MG TAB.SR.24H FAMOTIDINE (PEPCID) 20 MG PO BID 08/25/1808/26 Strength: 40 MG TAB 2347 0126 SUMAtriptan (IMITREX) 50 MG PO ONCEPRN 08/25/18 08/26/18 Strength: 50 MG TAB 2348 0126 ONDANSETRON ODT 4 MG PO BID 08/25/18 08/26/18 (ZOFRAN ODT) 2349 0126 Strength: 4 MG TAB.RAPDIS ATORVASTATIN (LIPITOR) 40 MG PO BEDTIME 9 08/26/18 Strength: 40 MG TAB 2350 0126 hydrOXYzine HCL (ATARAX) 50 MG PO 08/25/1810/07 Strength: 50 MG TAB DAILY PRN PRN SLEEP 2350 012 6 KETOROLAC (TORADOL) 10 MG PO 08/25/18 08/26/18 Strength: 10 MG TAB Q6H PRN PRN PAIN 2351 0126 METOPROLOL TARTRATE 25 MG PO BID 08/25/1808/26 (LOPRESSOR) 2351 0126 Strength: [address] 40 MG PO DAILY 08/25/18 9 (PROTONIX) 2351 0126 Strength: 40 MG TAB. SUCRALFATE (CARAFATE) 1 GM PO QID 08/25/1810/07 Strength: 1 GM TAB 2352 0126 traMADol (ULTRAM) 50 MG PO 08/25/18 08/26/18 Strength: 50 MG TAB TID PRN PRN PAIN 2352 0126 RIVAROXABAN (XARELTO) 20 MG PO DAILY 08/26/18 0 08/26/18 Strength: 20 MG TAB 0106 0126 Current Hospital Medications: Anti-Infective Agents Sig/Roshan Start time Last Medication Dose Route Stop Time Status Admin Ampicillin Sodium/ 3,000 MG Q6HR 08/30 1630 AC Sulbactam Sodium IV 09/09 1759 (UNASYN 3GM IJ) Sodium Chloride 100 ML (SODIUM CHLORIDE 0.9%) Cefazolin Sodium 0 .STK-MED ONE 08/30 1308 DC (ANCEF) .ROUTE Cefazolin Sodium 2,000 MG ONCALL 08/30 1100 DC (ANCEF) IV 09/06 1101 Cefazolin Sodium 0 .STK-MED ONE 08/30 1008 DC (ANCEF) .ROUTE Autonomic Drugs Sig/Roshan Start time Last Medication Dose Route Stop Time Status Admin Rocuronium [place] 0 .STK-MED ONE 08/30 1308 DC (ZEMURON) .ROUTE Succinylcholine 0 .STK-MED ONE 08/30 1308 DC Chloride .ROUTE (QUELICIN FLIPTOP (ANECTINE)) Epinephrine 0 .STK-MED ONE 08/30 0952 DC (ADRENALIN) .ROUTE Blood Formation,Coagulation Sig/Roshan Start time Last Medication Dose Route Stop Time Status Admin Thrombin 0 .STK-MED ONE 08/30 1021 DC (RECOTHROM) .ROUTE Ferric Sodium 125 MG Q24H 08/27 0900 AC 08/29 Gluconate Complex IV 09/01 0959 1028 (FERRLECIT 62.5MG/ 5ML AMPUL) Sodium Chloride 100 ML (SODIUM CHLORIDE 0.9%) Cardiovascular Drugs Sig/Roshan Start time Last Medication Dose Route Stop Time Status Admin Lidocaine HCl 0 .STK-MED ONE 08/30 1308 DC (XYLOCAINE 1%) .ROUTE Atorvastatin Calcium 40 MG BEDTIME 08/26 2100 D C 08/29 (LIPITOR) PO 09/25 2101 2104 Lisinopril 20 MG DAILY 08/26 899 AC 08/29 (PRINIVIL) PO 09/25 0901 1026 Metoprolol Tartrate 25 MG BID 08/26 899 AC (LOPRESSOR) PO 09/25 0901 2106 Central Nervous System Agents Sig/Roshan Start time Last Medication Dose Route Stop Time Status Admin Acetaminophen 650 MG Q4H PRN PRN 08/30 1525 AC (TYLENOL) PO 09/29 1446 Morphine Sulfate 4 MG Q4H PRN PRN 08/30 1525 AC (morphine SULFATE (C- IV 09/29 1522 II)) Morphine Sulfate 0 .STK-MED ONE 08/30 1524 DC 08/30 (morphine SULFATE (C- IV 1530 II)) Morphine Sulfate 2 MG Q4H PRN PRN 08/30 1505 DC (morphine SULFATE (C- IV 09/29 1504 II)) Hydromorphone HCl 0 .STK-MED ONE 08/30 1435 DC (DILAUDID (C-II)) .ROUTE Hydromorphone HCl 0 .STK-MED ONE 08/30 1427 DC (DILAUDID (C-II)) .ROUTE Fentanyl Citrate 0 .STK-MED ONE 08/30 1415 DC (SUBLIMAZE (C-II)) .ROUTE Fentanyl Citrate 0 .STK-MED ONE 08/30 1153 DC (fentaNYL CITRATE (C- .ROUTE II)) Midazolam HCl 0 .STK-MED ONE 08/30 1153 DC (VERSED (C-IV)) .ROUTE Propofol 0 .STK-MED ONE 08/30 1153 DC (DIPRIVAN) .ROUTE Zolpidem Tartrate 5 MG BEDTIME PRN PRN 08/28 19 40 AC 08/29 (AMBIEN (C-IV)) PO 09/27 1941 2113 Tramadol HCl 100 MG TID PRN PRN 08/26 1120 AC 08/29 (ULTRAM) PO 09/25 1115 2217 Citalopram 40 MG DAILY 08/26 0900 AC 08/29 Hydrobromide PO 09/25 0901 1026 (CeleXA) Morphine Sulfate 1 MG Q4H PRN PRN 08/26 0040 DC 08/30 (morphine SULFATE (C- IV 09/25 0041 0134 II)) Diagnostic Agents Sig/Roshan Start time Last Medication Dose Route Stop Time Status Admin Iopamidol 100 ML STAT STA 08/29 1721 DC 08/29 (ISOVUE-300) IV 08/29 1722 1739 Iopamidol 100 ML STAT STA 08/29 1659 DC (ISOVUE-370) IV 08/29 1700 Electrolytic, Caloric, And Yvette Sig/Roshan Start time Last Medication Dose Route Stop Time Status Admin Sodium Chloride 1,000 ML .[id number] 08/30 1525 AC (SODIUM CHLORIDE IV 09/29 1446 0.9%) Hydrochlorothiazide 25 MG DAILY 08/26 0900 AC 0 08/29 (HYDRODIURIL) PO 09/25 0901 1026 Eye, Ear, Nose And Throat (Een Sig/Roshan Start time Last Medication Dose Route Stop Time Status Admin Bacitracin 0 .STK-MED ONE 08/30 1023 DC (BACITRACIN) .ROUTE Oxymetazoline HCl 0 .STK-MED ONE 08/30 0954 DC (AFRIN) .ROUTE Gastrointestinal Drugs Sig/Roshan Start time Last Medication Dose Route Stop Time Status Admin Docusate Sodium 100 MG BID 08/30 2099 AC (COLACE) PO 09/29 2100 Ondansetron HCl 4 MG Q4H PRN PRN 08/30 1525 AC 08/30 (ZOFRAN) IV 09/29 1526 1529 Pantoprazole 40 MG Q12HR 08/29 2100 AC 08/29 (PROTONIX) PO 09/28 2100 210 Sucralfate 1 GM QID 08/26 0900 AC 08/29 (CARAFATE) PO 09/25 09 210 Local Anesthetics (Parenteral) Sig/Roshan Start time Last Medication Dose Route Stop Time Status Admin Bupivacaine HCl 0 .STK-MED ONE 08/30 0953 DC (SENSORCAINE 0.25%) .ROUTE Skin And Mucous Membrane Agent Sig/Roshan Start time Last Medication Dose Route Stop Time Status Admin Cocaine HCl 0 .STK-MED ONE 08/30 0952 DC (COCAINE HCL (C-II)) .ROUTE [place] Oil/Swedish 1 XIANG Q12HR 08/29 2100 CKD 08/29 Balsam/Trypsin TOPICAL 09/28 (Venelex Ointment Packet) Clotrimazole 1 XIANG BID 08/29 2100 CKD 08/29 (LOTRIMIN) TOPICAL 09/28 Vitamins Sig/Roshan Start time Last Medication Dose Route Stop Time Status Admin Vitamin B Complex/ 1 TAB BID 08/28 2099 CKD Vitamin C PO 09/27 (NEPHRO-JOSÉ) Hydroxocobalamin 1,000 MCG DAILY 08/28 1000 DC 08/29 (VITAMIN B12 VIAL) IM 08/30 0901 1027 Allergies: Coded Allergies: No Known Allergies (08/25/18) Ambulatory status: Independent Review of Systems : Reports: other (tightness to right groin). Musculoskeletal: Reports: lumbar pain. Neuro: Reports: headache. Systems reviewed negative: allergy/Immun, cardio vascular, constitutional, endocrine, ENT, eyes, GI, heme, psych, respirato ry, skin Objective Physical Exam: VS/I O: Last Documented: Result Date Time O2 Delivery Face mist tent 08/30 1545 O2 Flow Rate [id number] 08/30 1545 Temp 36.5 08/30 1525 Pulse Ox 99 08/30 1057 B/P 128/71 08/30 1057 Pulse 63 08/30 1057 Resp 16 08/30 1057 B/P Mean 85.2 08/30 0726 24 hour I O ending at 0700: 08/30 0700 08/29 1900 Intake Total 480 Output Total 2550 800 Balance -2070 -800 Intake, Oral 480 Output, Urine 2550 800 Medications: Active Meds + DC'd Last 24 Hrs Docusate Sodium 100 MG BID PO Ampicillin Sodium/Sulbactam Sodium 3,000 MG Q6HR IV Sodium Chloride 100 ML Acetaminophen 650 MG Q4H PRN PRN PO Morphine Sulfate 4 MG Q4H PRN PRN IV Ondansetron HCl 4 MG Q4H PRN PRN IV Sodium Chloride 1,000 ML .[id number] IV Morphine Sulfate 0 .STK-MED ONE IV (DC) Morphine Sulfate 2 MG Q4H PRN PRN IV (DC) Hydromorphone HCl 0 .STK-MED ONE .ROUTE (DC) Hydromorphone HCl 0 .STK-MED ONE .ROUTE (DC) Fentanyl Citrate 0 .STK-MED ONE .ROUTE (DC) Cefazolin Sodium 0 .STK-MED ONE .ROUTE (DC) Lidocaine HCl 0 .STK-MED ONE .ROUTE (DC) Rocuronium [place] 0 .STK-MED ONE .ROUTE (DC) Succinylcholine Chloride 0 .STK-MED ONE .ROUTE ( DC) Fentanyl Citrate 0 .STK-MED ONE .ROUTE (DC) Midazolam HCl 0 .STK-MED ONE .ROUTE (DC) Propofol 0 .STK-MED ONE .ROUTE (DC) Cefazolin Sodium 2,000 MG ONCALL IV (DC) Bacitracin 0 .STK-MED ONE .ROUTE (DC) Thrombin 0 .STK-MED ONE .ROUTE (DC) Cefazolin Sodium 0 .STK-MED ONE .ROUTE (DC) Oxymetazoline HCl 0 .STK-MED ONE .ROUTE (DC) Bupivacaine HCl 0 .STK-MED ONE .ROUTE (DC) Cocaine HCl 0 .STK-MED ONE .ROUTE (DC) Epinephrine 0 .STK-MED ONE .ROUTE (DC) [place] Oil/Swedish Balsam/Trypsin 1 XIANG Q12HR T OPICAL (CKD) Clotrimazole 1 XIANG BID TOPICAL (CKD) Pantoprazole 40 MG Q12HR PO Iopamidol 100 ML STAT STA IV (DC) Iopamidol 100 ML STAT STA IV (DC) Vitamin B Complex/Vitamin C 1 TAB BID PO (CKD) Zolpidem Tartrate 5 MG BEDTIME PRN PRN PO Hydroxocobalamin 1,000 MCG DAILY IM (DC) Ferric Sodium Gluconate Complex 125 MG Q24H IV Sodium Chloride 100 ML Atorvastatin Calcium 40 MG BEDTIME PO (DC) Tramadol HCl 100 MG TID PRN PRN PO Citalopram Hydrobromide 40 MG DAILY PO Hydrochlorothiazide 25 MG DAILY PO Lisinopril 20 MG DAILY PO Metoprolol Tartrate 25 MG BID PO Sucralfate 1 GM QID PO Morphine Sulfate 1 MG Q4H PRN PRN IV (DC) General appearance: alert, awake, orient ed, no acute distress, conversational, mental status normal, no respiratory distress, m orbidly obese Head/Eyes: atraumatic, normocephalic, PERRL ENT: normal dentition, 4x4 to nose Neck: full range of motion, non-tender, no JVD Cardiovascular: normal heart sounds, normal S1 S 2, normal rate and rhythm, no murmur Respiratory/Chest: aerating well, clear to auscultation, symmetric expansion, no distress Abdomen: soft, non-tender, normal bowel sounds Genitourinary: rubin, urine Extremities: moves all, normal capillary refill, normal temperature Musculoskeletal: full range of motion, normal in spection Neuro/REFERRAL COORDINATOR: alert, oriented X 3, no motor deficit s, no sensory deficits Skin: dry, intact, normal color, normal temperat ure, no rash Psychiatry: normal affect Results: Findings/Data: Laboratory Tests 08/30/18 1545: [Embedded Image Not Available] Laboratory Tests 08/30 1049 Chemistry Beta HCG, Quant (IU/L) < 5.0 Laboratory Tests 08/30 0623 Coagulation INR (0.8 - 1.1) 1.0 APTT (22.0 - 33.0 SECONDS) 28.7 PT Patient/Control Mix (9.6 - 11.6 SECONDS) 10. 3 Laboratory Tests 08/30 1545 Hematology WBC (3.8 - 9.8 K/MM3) 10.6 H RBC (3.58 - 4.97 M/MM3) 4.24 Hgb (11.2 - 14.9 G/DL) 9.1 L Hct (33.2 - 43.5 %) 30.9 L MCV (80.7 - 99.1 fL) 73 L MCH (27.0 - 34.1 pg) 21.5 L MCHC (32.2 - 35.7 %) 29.4 L RDW (12.1 - 15.2 %) 17.9 H Plt Count (129 - 368 K/MM3) 326 MPV (7.4 - 10.4 fl) 9.4 Neut % (Auto) (43 - 75 %) 78.2 H Lymph % (Auto) (14 - 44 %) 15.2 [place] % (Auto) (4 - 13 %) 4.9 Eos % (Auto) (0 - 6 %) 0.8 Baso % (Auto) (0 - 2 %) 0.2 Neut # (Auto) (2.0 - 7.6 K/mm3) 8.27 H Lymph # (Auto) (1.0 - 3.8 K/mm3) 1.61 [place] # (Auto) (0.1 - 0.8 K/mm3) 0.52 Eos # (Auto) (0.0 - 0.2 K/mm3) 0.08 Baso # (Auto) (0.0 - 0.2 K/mm3) 0.02 Immature Gran % (0.0 - 2.0 %) 0.7 Nucleated RBC % (0 - 1.0 %) 0.0 Nucleated RBCs # (Man) (0.0 - 0.1 K/mm3) 0.00 Radiology data: Recent Impressions: CAT SCAN - CT HD/BR W W/O CONT 08/29 172 Report Impression - Status: SIGNED Entered: 08/29/2018 1902 IMPRESSION: 1. Pituitary macroadenoma. Further evaluation wi MRI may be helpful. 2. Old right orbital blowout fracture with sublu xation of the inferior rectus muscle. Impression By: Farhan - Pranav Chaudhari M.D. Results: labs reviewed, rhythm personally rev'd, x-ray personally reviewed, current med profile rev'd, vital signs reviewed Treatment Prophylaxis Treatment Prophylaxis Rubin documentation: The data below has been impo rted from nursing documentation. Any exceptions have been noted below under Provider comments. _ Nursing Documentation Date rubin inserted: Date rubin discontinued: _ Provider comments: [placed i n the o.r., needs to be kept in place for strict i/o post surgery, concerned for pt may go into diabe gonzalez insipidus] Rubin status: day 1 Urine color: yellow Oxygen: room air Lines: arterial, peripheral Drains/tube: Drains/tube: urinary catheter Anti-infectives: ampicillin Ulcer prophylaxis: pantoprazole Diagnosis, Assessment Plan Diagnosis, Assessment Plan Problem List/A P: 1. 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 Critical care time: Minutes: 40 Melissa Miller 08/30/18 1655: Attestations Midlevel/Physician Attestation Midlevel attestation: Services and addendum: Agree with the findings and plan as documented Ro Durham NP I obtained a detailed history and perfor med a detailed physical examination. I reviewed the medical records and the available data I agree with the documented examination findings, assessment and plan of car e. Status post transsphenoidal resection of pituita ry tumor. Admitted to ICU for close monitoring of urine output to monitor for DI. at 1623 [facility][id number] END OF REPORT 2018-08-30 15:44:00-00:00 [facility] ([facility]) Critical Care Consult Note REPORT#:[id number] REPORT STATUS: Signed DATE:08/30/18 TIME: 1544 PATIENT: LEIGH FRYE UNIT #: [id number] [address]BED: [address] : 80 AGE: 38 SEX: F ATTEND: Johana Mckoy MD ADM AUTHOR: RO CEDILLO CNP-FABIOLA * ALL edits or amendments must be made on the BioSTL/computer document * Ro Cedillo 08/30/18 1544: History of Present Illness HPI Requesting clinician: Dr. Mckoy Reason for consult: critical care management Chief complaint: headache and back pain HPI: Pt is s/p transsphenoidal pituitary tumor resect ion She is alert and oriented x 4, c/o headache, allan k pain, and right groin "tightness". She was just medicated with morphin e 4 mg ivp and is requesting more stating "at [place] they were giving me 6mg of morphine just for my headaches". 4x4 [address] to nose no drainage not ed. lungs cta on room air, pt morbidly obese, moving all extremities equally w ell. 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 Additional surgical history: Lap band Alcohol use: Denies EtOH use Drug use: Denies recreational drugs Smoking status for patients 13 years old or olde r: Former Smoker Medications: Home Medications: Medication Dose/Rte/Freq Days Qty Entered Last Max Daily Dose Reviewed LISINOPRIL/HCTZ 1 TAB PO DAILY 08/25/18 9 (ZESTORETIC 20/25 MG) 2341 0126 Strength: 1 EACH TAB ESCITALOPRAM (LEXAPRO) 40 MG PO DAILY 08/25/18 08/26/18 Strength: 20 MG TAB 2343 0126 ISOSORBIDE 30 MG PO DAILY 08/25/18 08/26/18 MONONITRATE SR 2346 0126 (IMDUR) Strength: 30 MG TAB.SR.24H FAMOTIDINE (PEPCID) 20 MG PO BID 08/25/1808/26 Strength: 40 MG TAB 2347 0126 SUMAtriptan (IMITREX) 50 MG PO ONCEPRN 08/25/18 08/26/18 Strength: 50 MG TAB 2348 0126 ONDANSETRON ODT 4 MG PO BID 08/25/18 08/26/18 (ZOFRAN ODT) 2349 0126 Strength: 4 MG TAB.RAPDIS ATORVASTATIN (LIPITOR) 40 MG PO BEDTIME 9 08/26/18 Strength: 40 MG TAB 2350 0126 hydrOXYzine HCL (ATARAX) 50 MG PO 08/25/1810/07 Strength: 50 MG TAB DAILY PRN PRN SLEEP 2350 01 26 KETOROLAC (TORADOL) 10 MG PO 08/25/18 08/26/18 Strength: 10 MG TAB Q6H PRN PRN PAIN 2351 0126 METOPROLOL TARTRATE 25 MG PO BID 08/25/1808/26 (LOPRESSOR) 2351 0126 Strength: [address] 40 MG PO DAILY 08/25/18 9 (PROTONIX) 2351 0126 Strength: 40 MG TAB.DR SUCRALFATE (CARAFATE) 1 GM PO QID 08/25/1810/07 Strength: 1 GM TAB 2352 0126 traMADol (ULTRAM) 50 MG PO 08/25/18 08/26/18 Strength: 50 MG TAB TID PRN PRN PAIN 2352 0126 RIVAROXABAN (XARELTO) 20 MG PO DAILY 08/26/18 08/26/18 Strength: 20 MG TAB 0106 0126 Current Hospital Medications: Anti-Infective Agents Sig/Roshan Start time Last Medication Dose Route Stop Time Status Admin Ampicillin Sodium/ 3,000 MG Q6HR 08/30 1630 AC Sulbactam Sodium IV 09/09 1759 (UNASYN 3GM IJ) Sodium Chloride 100 ML (SODIUM CHLORIDE 0.9%) Cefazolin Sodium 0 .STK-MED ONE 08/30 1308 DC (ANCEF) .ROUTE Cefazolin Sodium 2,000 MG ONCALL 08/30 1100 DC (ANCEF) IV 09/06 1101 Cefazolin Sodium 0 .STK-MED ONE 08/30 1008 DC (ANCEF) .ROUTE Autonomic Drugs Sig/Roshan Start time Last Medication Dose Route Stop Time Status Admin Rocuronium [place] 0 .STK-MED ONE 08/30 1308 DC (ZEMURON) .ROUTE Succinylcholine 0 .STK-MED ONE 08/30 1308 DC Chloride .ROUTE (QUELICIN FLIPTOP (ANECTINE)) Epinephrine 0 .STK-MED ONE 08/30 0952 DC (ADRENALIN) .ROUTE Blood Formation,Coagulation Sig/Roshan Start time Last Medication Dose Route Stop Time Status Admin Thrombin 0 .STK-MED ONE 08/30 1021 DC (RECOTHROM) .ROUTE Ferric Sodium 125 MG Q24H 08/27 899 AC 08/29 Gluconate Complex IV 09/01 0959 1028 (FERRLECIT 62.5MG/ 5ML AMPUL) Sodium Chloride 100 ML (SODIUM CHLORIDE 0.9%) Cardiovascular Drugs Sig/Roshan Start time Last Medication Dose Route Stop Time Status Admin Lidocaine HCl 0 .STK-MED ONE 08/30 1308 DC (XYLOCAINE 1%) .ROUTE Atorvastatin Calcium 40 MG BEDTIME 08/26 2100 D C 08/29 (LIPITOR) PO 09/25 2100 210 Lisinopril 20 MG DAILY 08/26 899 AC 08/29 (PRINIVIL) PO 09/25 0901 1026 Metoprolol Tartrate 25 MG BID 08/26 899 AC (LOPRESSOR) PO 09/25 0901 2106 Central Nervous System Agents Sig/Roshan Start time Last Medication Dose Route Stop Time Status Admin Acetaminophen 650 MG Q4H PRN PRN 08/30 1525 AC (TYLENOL) PO 09/29 1446 Morphine Sulfate 4 MG Q4H PRN PRN 08/30 1525 AC (morphine SULFATE (C- IV 09/29 1522 II)) Morphine Sulfate 0 .STK-MED ONE 08/30 1524 DC 0 08/30 (morphine SULFATE (C- IV 1530 II)) Morphine Sulfate 2 MG Q4H PRN PRN 08/30 1505 DC (morphine SULFATE (C- IV 09/29 1504 II)) Hydromorphone HCl 0 .STK-MED ONE 08/30 1435 DC (DILAUDID (C-II)) .ROUTE Hydromorphone HCl 0 .STK-MED ONE 08/30 1427 DC (DILAUDID (C-II)) .ROUTE Fentanyl Citrate 0 .STK-MED ONE 08/30 1415 DC (SUBLIMAZE (C-II)) .ROUTE Fentanyl Citrate 0 .STK-MED ONE 08/30 1153 DC (fentaNYL CITRATE (C- .ROUTE II)) Midazolam HCl 0 .STK-MED ONE 08/30 1153 DC (VERSED (C-IV)) .ROUTE Propofol 0 .STK-MED ONE 08/30 1153 DC (DIPRIVAN) .ROUTE Zolpidem Tartrate 5 MG BEDTIME PRN PRN 08/28 19 40 AC 08/29 (AMBIEN (C-IV)) PO 09/27 1941 2113 Tramadol HCl 100 MG TID PRN PRN 08/26 1120 AC 0 08/29 (ULTRAM) PO 09/25 1115 2217 Citalopram 40 MG DAILY 08/26 0900 AC 08/29 Hydrobromide PO 09/25 0901 1026 (CeleXA) Morphine Sulfate 1 MG Q4H PRN PRN 08/26 0040 DC 08/30 (morphine SULFATE (C- IV 09/25 0041 0134 II)) Diagnostic Agents Sig/Roshan Start time Last Medication Dose Route Stop Time Status Admin Iopamidol 100 ML STAT STA 08/29 1721 DC 08/29 (ISOVUE-300) IV 08/29 1722 1739 Iopamidol 100 ML STAT STA 08/29 1659 DC (ISOVUE-370) IV 08/29 1700 Electrolytic, Caloric, And Yvette Sig/Roshan Start time Last Medication Dose Route Stop Time Status Admin Sodium Chloride 1,000 ML .[id number] 08/30 1525 AC (SODIUM CHLORIDE IV 09/29 1446 0.9%) Hydrochlorothiazide 25 MG DAILY 08/26 899 AC 0 08/29 (HYDRODIURIL) PO 09/25 900 1026 Eye, Ear, Nose And Throat (Een Sig/Roshan Start time Last Medication Dose Route Stop Time Status Admin Bacitracin 0 .STK-MED ONE 08/30 1023 DC (BACITRACIN) .ROUTE Oxymetazoline HCl 0 .STK-MED ONE 08/30 0954 DC (AFRIN) .ROUTE Gastrointestinal Drugs Sig/Roshna Start time Last Medication Dose Route Stop Time Status Admin Docusate Sodium 100 MG BID 08/30 2099 AC (COLACE) PO 09/29 210 Ondansetron HCl 4 MG Q4H PRN PRN 08/30 1525 AC 08/30 (ZOFRAN) IV 09/29 1526 1529 Pantoprazole 40 MG Q12HR 08/29 2099 AC 08/29 (PROTONIX) PO 09/28 210 210 Sucralfate 1 GM QID 08/26 899 AC 08/29 (CARAFATE) PO 09/25 09 210 Local Anesthetics (Parenteral) Sig/Roshan Start time Last Medication Dose Route Stop Time Status Admin Bupivacaine HCl 0 .STK-MED ONE 08/30 0953 DC (SENSORCAINE 0.25%) .ROUTE Skin And Mucous Membrane Agent Sig/Roshan Start time Last Medication Dose Route Stop Time Status Admin Cocaine HCl 0 .STK-MED ONE 08/30 0952 DC (COCAINE HCL (C-II)) .ROUTE [place] Oil/Swedish 1 XIANG Q12HR 08/29 2099 CKD 08/29 Balsam/Trypsin TOPICAL 09/28 (Venelex Ointment Packet) Clotrimazole 1 XIANG BID 08/29 2099 CKD 08/29 (LOTRIMIN) TOPICAL 09/28 Vitamins Sig/Roshan Start time Last Medication Dose Route Stop Time Status Admin Vitamin B Complex/ 1 TAB BID 08/28 2099 CKD Vitamin C PO 09/27 2100 210 (NEPHRO-JOSÉ) Hydroxocobalamin 1,000 MCG DAILY 08/28 1000 DC 08/29 (VITAMIN B12 VIAL) IM 08/30 0901 1027 Allergies: Coded Allergies: No Known Allergies (08/25/18) Ambulatory status: Independent Review of Systems : Reports: other (tightness to right groin). Musculoskeletal: Reports: lumbar pain. Neuro: Reports: headache. Systems reviewed negative: allergy/Immun, cardio vascular, constitutional, endocrine, ENT, eyes, GI, heme, psych, respirato ry, skin Objective Physical Exam: VS/I O: Last Documented: Result Date Time O2 Delivery Face mist tent 08/30 1545 O2 Flow Rate 10.628420 08/30 1545 Temp 36.5 08/30 1525 Pulse Ox 99 08/30 1057 B/P 128/71 08/30 1057 Pulse 63 08/30 1057 Resp 16 08/30 1057 B/P Mean 85.2 08/30 0726 24 hour I O ending at 0700: 08/30 0700 08/29 1900 Intake Total 480 Output Total 2550 800 Balance -2070 -800 Intake, Oral 480 Output, Urine 2550 800 Medications: Active Meds + DC'd Last 24 Hrs Docusate Sodium 100 MG BID PO Ampicillin Sodium/Sulbactam Sodium 3,000 MG Q6HR IV Sodium Chloride 100 ML Acetaminophen 650 MG Q4H PRN PRN PO Morphine Sulfate 4 MG Q4H PRN PRN IV Ondansetron HCl 4 MG Q4H PRN PRN IV Sodium Chloride 1,000 ML .[id number] IV Morphine Sulfate 0 .STK-MED ONE IV (DC) Morphine Sulfate 2 MG Q4H PRN PRN IV (DC) Hydromorphone HCl 0 .STK-MED ONE .ROUTE (DC) Hydromorphone HCl 0 .STK-MED ONE .ROUTE (DC) Fentanyl Citrate 0 .STK-MED ONE .ROUTE (DC) Cefazolin Sodium 0 .STK-MED ONE .ROUTE (DC) Lidocaine HCl 0 .STK-MED ONE .ROUTE (DC) Rocuronium [place] 0 .STK-MED ONE .ROUTE (DC) Succinylcholine Chloride 0 .STK-MED ONE .ROUTE ( DC) Fentanyl Citrate 0 .STK-MED ONE .ROUTE (DC) Midazolam HCl 0 .STK-MED ONE .ROUTE (DC) Propofol 0 .STK-MED ONE .ROUTE (DC) Cefazolin Sodium 2,000 MG ONCALL IV (DC) Bacitracin 0 .STK-MED ONE .ROUTE (DC) Thrombin 0 .STK-MED ONE .ROUTE (DC) Cefazolin Sodium 0 .STK-MED ONE .ROUTE (DC) Oxymetazoline HCl 0 .STK-MED ONE .ROUTE (DC) Bupivacaine HCl 0 .STK-MED ONE .ROUTE (DC) Cocaine HCl 0 .STK-MED ONE .ROUTE (DC) Epinephrine 0 .STK-MED ONE .ROUTE (DC) [place] Oil/Swedish Balsam/Trypsin 1 XIANG Q12HR T OPICAL (CKD) Clotrimazole 1 XIANG BID TOPICAL (CKD) Pantoprazole 40 MG Q12HR PO Iopamidol 100 ML STAT STA IV (DC) Iopamidol 100 ML STAT STA IV (DC) Vitamin B Complex/Vitamin C 1 TAB BID PO (CKD) Zolpidem Tartrate 5 MG BEDTIME PRN PRN PO Hydroxocobalamin 1,000 MCG DAILY IM (DC) Ferric Sodium Gluconate Complex 125 MG Q24H IV Sodium Chloride 100 ML Atorvastatin Calcium 40 MG BEDTIME PO (DC) Tramadol HCl 100 MG TID PRN PRN PO Citalopram Hydrobromide 40 MG DAILY PO Hydrochlorothiazide 25 MG DAILY PO Lisinopril 20 MG DAILY PO Metoprolol Tartrate 25 MG BID PO Sucralfate 1 GM QID PO Morphine Sulfate 1 MG Q4H PRN PRN IV (DC) General appearance: alert, awake, orient ed, no acute distress, conversational, mental status normal, no respiratory distress, m orbidly obese Head/Eyes: atraumatic, normocephalic, PERRL ENT: normal dentition, 4x4 to nose Neck: full range of motion, non-tender, no JVD Cardiovascular: normal heart sounds, normal S1 S 2, normal rate and rhythm, no murmur Respiratory/Chest: aerating well, clear to auscultation, symmetric expansion, no distress Abdomen: soft, non-tender, normal bowel sounds Genitourinary: rubin, urine Extremities: moves all, normal capillary refill, normal temperature Musculoskeletal: full range of motion, normal in spection Neuro/REFERRAL COORDINATOR: alert, oriented X 3, no motor deficit s, no sensory deficits Skin: dry, intact, normal color, normal temperat ure, no rash Psychiatry: normal affect Results: Findings/Data: Laboratory Tests 08/30/18 1545: [Embedded Image Not Available] Laboratory Tests 08/30 1049 Chemistry Beta HCG, Quant (IU/L) < 5.0 Laboratory Tests 08/30 0623 Coagulation INR (0.8 - 1.1) 1.0 APTT (22.0 - 33.0 SECONDS) 28.7 PT Patient/Control Mix (9.6 - 11.6 SECONDS) 10. 3 Laboratory Tests 08/30 1545 Hematology WBC (3.8 - 9.8 K/MM3) 10.6 H RBC (3.58 - 4.97 M/MM3) 4.24 Hgb (11.2 - 14.9 G/DL) 9.1 L Hct (33.2 - 43.5 %) 30.9 L MCV (80.7 - 99.1 fL) 73 L MCH (27.0 - 34.1 pg) 21.5 L MCHC (32.2 - 35.7 %) 29.4 L RDW (12.1 - 15.2 %) 17.9 H Plt Count (129 - 368 K/MM3) 326 MPV (7.4 - 10.4 fl) 9.4 Neut % (Auto) (43 - 75 %) 78.2 H Lymph % (Auto) (14 - 44 %) 15.2 [place] % (Auto) (4 - 13 %) 4.9 Eos % (Auto) (0 - 6 %) 0.8 Baso % (Auto) (0 - 2 %) 0.2 Neut # (Auto) (2.0 - 7.6 K/mm3) 8.27 H Lymph # (Auto) (1.0 - 3.8 K/mm3) 1.61 [place] # (Auto) (0.1 - 0.8 K/mm3) 0.52 Eos # (Auto) (0.0 - 0.2 K/mm3) 0.08 Baso # (Auto) (0.0 - 0.2 K/mm3) 0.02 Immature Gran % (0.0 - 2.0 %) 0.7 Nucleated RBC % (0 - 1.0 %) 0.0 Nucleated RBCs # (Man) (0.0 - 0.1 K/mm3) 0.00 Radiology data: Recent Impressions: CAT SCAN - CT HD/BR W W/O CONT 08/29 1720 Report Impression - Status: SIGNED Entered: 08/29/2018 1902 IMPRESSION: 1. Pituitary macroadenoma. Further evaluation wi th MRI may be helpful. 2. Old right orbital blowout fracture with sublu xation of the inferior rectus muscle. Impression By: Farhan Chaudhari M.D. Results: labs reviewed, rhythm personally rev'd, x-ray personally reviewed, current med profile rev'd, vital signs reviewed Treatment Prophylaxis Treatment Prophylaxis Rubin documentation: The data below has been impo rted from nursing documentation. Any exceptions have been noted below under Provider comments. _ Nursing Documentation Date rubin inserted: Date rubin discontinued: _ Provider comments: [placed i n the o.r., needs to be kept in place for strict i/o post surgery, concerned for pt may go into diabe gonzalez insipidus] Rubin status: day 1 Urine color: yellow Oxygen: room air Lines: arterial, peripheral Drains/tube: Drains/tube: urinary catheter Anti-infectives: ampicillin Ulcer prophylaxis: pantoprazole Diagnosis, Assessment Plan Diagnosis, Assessment Plan Problem List/A P: 1. 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 I reviewed the medical records and the available data I agree with the documented examination findings, assessment and plan of sarah courtney Status post transsphenoidal resection of pituita ry tumor. Admitted to ICU for close monitoring of urine output to monitor for DI. at 1623 Electronically Signed by Melissa Miller MD on 08/30 at 1657 RPT #:[id number] END OF REPORT 2018-08-30 15:04:00-00:00 [facility] ([facility]) Neurosurgical Progress Note REPORT#:[id number] REPORT STATUS: Signed DATE:08/30/18 TIME: 1504 PATIENT: LEIGH FRYE UNIT #: [id number] [address]BED: [address] : [address] AGE: 38 SEX: F ATTEND: Johana Mckoy MD ADM AUTHOR: Tanya Rodriguez NP * ALL edits or amendments must be made on the BioSTL/computer document * Subjective Comments: patient is s/p transsphenoidal pituitary tumor r esection Objective Physical Exam Cardiovascular: normal capillary refill, regular rate rhythm Respiratory: no distress, symmetric expansion Abdomen: non-tender, normal bowel sounds, soft, no distention Neuro/REFERRAL COORDINATOR: alert, oriented X 3, CN II-XII intact , EOMI, PERRL, normal gait, normal reflexes, normal speech, reflexes equal b ilat, no motor deficits, no sensory deficits, Right side blurry vision Diagnosis, Assessment Plan Free Text A P: A: 38 year old female with pituitary adenoma. P: -Please keep patient in SICU for the next day fo r DI watch -Continue rubin cath for strict I O -Cortisol, serum Na, urine s pec grav q8h...If patient urine output >200cc for 2 consecutive hours, please repeat labs. DDAVP for urine spec grav less than 1.010 and elevated serum sodium -Nasal packingin place Electronically Signed by Tanya Rodriguez NP on 08/20 05/10 at 1532 RPT #:[id number] END OF REPORT 2018-08-30 15:04:00-00:00 [facility]) Neurosurgical Progress Note REPORT#:[id number] REPORT STATUS: Signed DATE:08/30/18 TIME: 1504 PATIENT: LEIGH FRYE UNIT #: [id number] ROOM/BED: [address] : 80 AGE: 38 SEX: F ATTEND: Johana Mckoy MD ADM AUTHOR: Tanya Rodriguez NP * ALL edits or amendments must be made on the BioSTL/computer document * Tanya Rodriguez NP 08/30/18 1504: Subjective Comments: patient is s/p transsphenoidal pituitary tumor r esection Objective Physical Exam Cardiovascular: normal capillary refill, regular rate rhythm Respiratory: no distress, symmetric expansion Abdomen: non-tender, normal bowel sounds, soft, no distention Neuro/REFERRAL COORDINATOR: alert, oriented X 3, CN II-XII intact , EOMI, PERRL, normal gait, normal reflexes, normal speech, reflexes equal b ilat, no motor deficits, no sensory deficits, Right side blurry vision Diagnosis, Assessment Plan Free Text A P: A: 38 year old female with pituitary adenoma. P: -Please keep patient in SICU for the next day fo r DI watch -Continue rubin cath for strict I O -Cortisol, serum Na, urine s pec grav q8h...If patient urine output >200cc for 2 consecutive hours, please repeat labs. DDAVP for urine spec grav less than 1.010 and elevated serum sodium -Nasal packingin place Ozzy Viera 08/31/18 1568: Diagnosis, Assessment Plan Additional comments: Agree wit above Electronically Signed by Tanya Rodriguez NP on 08/20 05/10 at 1532 RPT #:[id number] END OF REPORT 2018-08-30 15:04:00-00:00 [facility] ([facility]) Neurosurgical Progress Note REPORT#:[id number] REPORT STATUS: Signed DATE:08/30/18 TIME: 1504 PATIENT: LEIGH FRYE UNIT #: [id number] ROOM/BED: [facility] : 80 AGE: 38 SEX: F ATTEND: Johana Mckoy MD ADM AUTHOR: Tanya Rodriguez NP * ALL edits or amendments must be made on the BioSTL/computer document * Tanya Rodriguez NP 08/30/18 1504: Subjective Comments: patient is s/p transsphenoidal pituitary tumor r esection Objective Physical Exam Cardiovascular: normal capillary refill, regular rate rhythm Respiratory: no distress, symmetric expansion Abdomen: non-tender, normal bowel sounds, soft, no distention Neuro/REFERRAL COORDINATOR: alert, oriented X 3, CN II-XII intact , EOMI, PERRL, normal gait, normal reflexes, normal speech, reflexes equal b ilat, no motor deficits, no sensory deficits, Right side blurry vision Diagnosis, Assessment Plan Free Text A P: A: 38 year old female with pituitary adenoma. P: -Please keep patient in SICU for the next day fo r DI watch -Continue rubin cath for strict I O -Cortisol, serum Na, urine s pec grav q8h...If patient urine output >200cc for 2 consecutive hours, please repeat labs. DDAVP for urine spec grav less than 1.010 and elevated serum sodium -Nasal packingin place Ozzy Viera 08/31/18 2328: Diagnosis, Assessment Plan Additional comments: Agree wit above Electronically Signed by Tanya Rodriguez NP on 08/20 05/10 at 1532 Electronically Signed by Ozzy Viera MD on 08/20 05/10 at 2327 RPT #:[id number] END OF REPORT 2018-08-30 14:27:00-00:00 [id number] [place] [address] PATIENT NAME: LEIGH FRYE ADMIT DATE: 08/25/18 ACCOUNT NO: [id number] ROOM NO: [facility] AGE: 38 REPORT TYPE: OPERATIVE REPORT SEX: F ADMITTING PHYSICIAN:Jani Mckoy MD ATTENDING PHYSICIAN:Jani Mckoy MD OPERATION DATE: 08/30/2018 PRIMARY SURGEON: Ozzy Viera MD ADDRESS CHANGE CLERK: Florentin Morrow MD PREOPERATIVE DIAGNOSIS: Pituitary macroadenoma w ith chiasmal compression. POSTOPERATIVE DIAGNOSIS: Pituitary macroadenoma with chiasmal compression. PROCEDURES PERFORMED: 1. Transsphenoidal approach. 2. Resection of sellar to suprasellar mass that is causing chiasmal compression. 3. Microscopic dissection. 4. Resectiom of nasal septum. 5. Cranioplasty of about 5 cm to 6 cm repair of cerebral spinal fluid leak. 6. Stealth navigation. 7. Harvesting fat graft. INDICATION FOR SURGERY: This is a 38-year-old fe male, who has been having severe headache and visual loss. She was found t o have a large pituitary macroadenoma. Given this, she opted for surgical intervention. DESCRIPTION OF PROCEDURE: The patient was juan t back to operating room, was intubated by anesthesia team. We then placed the patient supine with her head tilted to the right hip. We marked out a 1 inch incision in the inguinal area with the harvested fat graft. The area was prepp ed and draped in the usual sterile fashion. Skin incision was carried out w ith a #10 blade. Monopolar electrocautery was used to dissect throu gh the soft tissue. From where we took a small piece of fat in that region. We then dilia sed the fascia with interrupted Vicryl stitches. We stapled the skin edges. No complications for this portion. We then prepped each of the nostril. We then rosa isela alex cottonoid soaked in cocaine into each nostrils. We prepped around th e nose. The patient was draped appropriately. Microscope was brought in. We then brought the nasal speculum into the right nostril and brought all the way down to the region of the bony septum. We used Stealth to confirm ashleigh ect trajectory. The mucosal opening into the nasal septum with 11 blade. I u sed a caudal septal instrumentation and dissected the nasal septum o ff of the mucosa. I was able to preserve a portion of the nasal septu m using a pituitary instrument to take PATIENT NAME: LEIGH FRYE it out and use it for later cranioplasty. From h ere, I carefully dissected off the rostrum of the sphenoid sinus. I advance d the speculum and identified the ostium and the sphenoid sinus. Then used it as an opening to place my Kerrison rongeurs to break open the rostrum of t he sphenoid sinus. This gave us additional exposure. There was a large septum seen on the right side. We were able to carefully remove the septum using p ituitary instruments and Kerrison rongeur. This widened our exposure, giv ing us clear exposure of the sella. I was able to get exposure all the way up tp the planum sphenoidale all the way to the base of the sella. From here, an opening was made into the sella with an osteotome. Then I carefully widene d our exposure with Kerrison rongeur. I cauterized the dura, made an opening into dura with a #11 blade. At this point there was soft tissue that came out, that was preserved, sent to pathology revealing a pituitary adenoma. I then used ring curette to remove tumor from the cephalad region into our field. W e were able to see the diaphragm come down. I worked our way out latera lly to continue removing the tumor out. The entire diaphragm then became pres ent into our field. We used a number of hockey stick instruments and ring cure ttes to carefully look into the redundancy of the diaphragm to see if there was any additional tumor, which we did not see any. At this point, we did see some clear fluid coming out into our field. We then used the fat and wra pped it around with Surgicel and placed it into the sellar. Here, we used the remaining pieces of bone to reconstruct the anterior wall of the sellar, but tressing the it against the fat and the residual sellar wall. This opening w as reinforced with DuraSeal. I do not see any additional fluid leak. Speculum was then removed. We then placed Iodoform into the nostril. Dictated By: Ozzy Viera MD WT: OP:GISSELLE/ZULMA/JERSON Conf#: [id number]#: [id number] Authenticated and Edited by Ozzy Viera MD On 09/12/18 7:04:24 PM Electronically Signed by Ozzy Viera MD on at 1906 PATIENT NAME: LEIGH FRYE 2018-08-30 14:16:00-00:00 [id number] [address] PATIENT NAME: LEIGH FRYE ADMIT DATE : 08/25/18 ACCOUNT NO: [id number] ROOM NO: [id number] AGE: 38 REPORT TYPE: PROGRESS NOTE SEX: F ADMITTING PHYSICIAN:Jani Mckoy MD ATTENDING PHYSICIAN:Jani Mckoy MD DATE: ADDENDUM TO GENERAL PROGRESS NOTE SUBJECTIVE: A 38-year-old fe male who came to the hospital with headaches, has 2 cm pituitary macroadenoma. F unction testing so far is not been diagnosed of any known hormone to dominate the picture, none ____ elevation was only of ____. She is obese, BMI of 55. Preoperative evaluation is complete. Other than obesity, she does not have any contraind ication to surgery. Pelvic function is stable ____ blood sugars are stable. The patient will undergo surgery ____. Today, ____ reviewed ____ approach. The alethea ent understands the procedure and wants to proceed. Dictated By: Jani Mckoy MD WT: PN:GISSELLE/YONATHAN/JERSON Conf#: [id number]/DID#: [id number] Authenticated by Jani Mckoy MD On 06:03:11 AM at 0603 PATIENT NAME: LEIGH FRYE 2018-08-30 12:22:00-00:00 [facility] ([facility]) General Progress Note REPORT#:[id number] REPORT STATUS: Signed DATE:08/30/18 TIME: 1222 PATIENT: LEIGH FRYE UNIT #: [id number] [facility] AGE: 38 SEX: F ATTEND: Johana Mckoy MD ADM AUTHOR: Jani Mckoy MD * ALL edits or amendments must be made on the el SiteMinder/computer document * Subjective Comments: Vital Signs Date Time Temp Pulse Resp B/P B/P Pulse O2 O2 F low FiO2 Mean Ox Delivery Rate 08/30 1057 98.7 63 16 128/71 99 Room air 0.0000 00 08/30 0726 97.9 63 14 110/73 85.2 97 Room air 08/30 0415 97.9 66 16 102/66 77.9 98 Room air 08/29 2324 98.2 61 16 133/84 100.5 100 Room air 08/29 1920 97.7 73 16 116/75 88.7 98 Room air 08/29 1559 97.9 73 14 102/64 76.6 98 Room air 08/29 1200 97.7 73 14 126/75 91.6 98 Room air 08/29 0747 98.2 74 14 139/80 99.9 99 Room air 08/29 0403 97.9 60 14 103/63 76.6 96 08/28 2357 97.9 73 14 142/83 102.8 100 08/28 2143 98.2 74 14 108/71 83.4 97 08/28 1553 97.9 68 14 112/70 84.0 100 Room air Laboratory Tests: 08/30 08/30 08/29 1049 0623 1503 Chemistry Sodium (137 - 145 MMOL/L) 139 Potassium (3.5 - 5.1 MMOL/L) 4.4 Chloride (98 - 107 MMOL/L) 105 Carbon Dioxide (22 - 30 MMOL/L) 25 Anion Gap (14 - 24 MMOL/L) 13 L BUN (7 - 17 MG/DL) 17 Creatinine (0.52 - 1.04 MG/DL) 0.90 Glomerular Filtr Rate > 60 Glucose (74 - 106 MG/DL) 113 H Calcium (8.4 - 10.2 MG/DL) 9.7 Beta HCG, Quant (IU/L) < 5.0 Coagulation INR (0.8 - 1.1) 1.0 1.0 APTT (22.0 - 33.0 SECONDS) 28.7 PT Patient/Control Mix (9.6 - 11.6 SECONDS) 10. 3 10.2 Hematology WBC (3.8 - 9.8 K/MM3) 10.8 H RBC (3.58 - 4.97 M/MM3) 4.14 Hgb (11.2 - 14.9 G/DL) 8.9 L Hct (33.2 - 43.5 %) 29.9 L MCV (80.7 - 99.1 fL) 72 L MCH (27.0 - 34.1 pg) 21.5 L MCHC (32.2 - 35.7 %) 29.8 L RDW (12.1 - 15.2 %) 17.2 H Plt Count (129 - 368 K/MM3) 277 MPV (7.4 - 10.4 fl) 10.4 Neut % (Auto) (43 - 75 %) 70.5 Lymph % (Auto) (14 - 44 %) 19.6 Merrick % (Auto) (4 - 13 %) 6.9 Eos % (Auto) (0 - 6 %) 2.1 Baso % (Auto) (0 - 2 %) 0.5 Neut # (Auto) (2.0 - 7.6 K/mm3) 7.62 H Lymph # (Auto) (1.0 - 3.8 K/mm3) 2.11 Merrick # (Auto) (0.1 - 0.8 K/mm3) 0.74 Eos # (Auto) (0.0 - 0.2 K/mm3) 0.23 H Baso # (Auto) (0.0 - 0.2 K/mm3) 0.05 Immature Gran % (0.0 - 2.0 %) 0.4 Nucleated RBC % (0 - 1.0 %) 0.0 Nucleated RBCs # (Man) (0.0 - 0.1 K/mm3) 0.00 Miscellaneous Maternal Serum HCG (IU/L) < 2 Recent Impressions: CAT SCAN - CT HD/BR W W/O CONT 08/29 1720 Report Impression - Status: SIGNED Entered: 08/29/2018 1902 IMPRESSION: 1. Pituitary macroadenoma. Further evaluation wi MRI may be helpful. 2. Old right orbital blowout fracture with sublu xation of the inferior rectus muscle. Impression By: Farhan Chaudhari M.D. Recent Impressions: ULTRASOUND - US HEAD AND NECK 08/28 1227 Report Impression - Status: SIGNED Entered: 08/28/2018 1431 Impression: 1. Parathyroid mass, lymphadenopathy is not iden tified. 2. 2.7 cm smoothly marginated mass of the right thyroid gland. The thyroid is not completely evaluated on this stud y. Follow-up with dedicated thyroid evaluation is recommended. Impression By: [email or web address] - Ko Valles M.D. CAT SCAN - CT HD/BR W W/O CONT 08/29 1720 Report Impression - Status: SIGNED Entered: 08/29/2018 1902 IMPRESSION: 1. Pituitary macroadenoma. Further evaluation [facility] MRI may be helpful. 2. Old right orbital blowout fracture with sublu xation of the inferior rectus muscle. Impression By: Farhan Chaudhari M.D. Current Medications Sig/Roshan Start time Last Medication Dose Route Stop Time Status Admin Fentanyl Citrate 0 .STK-MED ONE 08/30 1153 DC .ROUTE Midazolam HCl 0 .STK-MED ONE 08/30 1153 DC .ROUTE Propofol 0 .STK-MED ONE 08/30 1153 DC .ROUTE Cefazolin Sodium 2,000 MG ONCALL 08/30 1100 AC IV 09/06 1101 Bacitracin 0 .STK-MED ONE 08/30 1023 DC .ROUTE Thrombin 0 .STK-MED ONE 08/30 1021 DC .ROUTE Cefazolin Sodium 0 .STK-MED ONE 08/30 1008 DC .ROUTE Oxymetazoline HCl 0 .STK-MED ONE 08/30 0954 DC .ROUTE Bupivacaine HCl 0 .STK-MED ONE 08/30 0953 DC .ROUTE Cocaine HCl 0 .STK-MED ONE 08/30 0952 DC .ROUTE Epinephrine 0 .STK-MED ONE 08/30 0952 DC .ROUTE [place] Oil/Swedish 1 XIANG Q12HR 08/29 2100 CKD 08/29 Balsam/Trypsin TOPICAL 09/28 Clotrimazole 1 XIANG BID 08/29 2100 CKD 08/29 TOPICAL 09/28 2101 2103 Pantoprazole 40 MG Q12HR 08/29 2100 AC 08/29 PO 09/28 2101 2105 Iopamidol 100 ML STAT STA 08/29 1721 DC 08/29 IV 08/29 1722 1739 Iopamidol 100 ML STAT STA 08/29 1659 DC IV 08/29 1700 Vitamin B Complex/ 1 TAB BID 08/28 2100 CKD Vitamin C PO 09/27 2101 2104 Zolpidem Tartrate 5 MG BEDTIME PRN PRN 08/28 19 40 AC 08/29 PO 09/27 1941 2113 Hydroxocobalamin 1,000 MCG DAILY 08/28 1000 DC 08/29 IM 08/30 0901 1027 Ferric Sodium 125 MG Q24H 08/27 09 AC 08/29 Gluconate Complex IV 09/01 0959 1028 Sodium Chloride 100 ML Atorvastatin Calcium 40 MG BEDTIME 08/26 2100 A C 08/29 PO 09/25 2101 2104 Heparin Sodium 5,000 UNITS Q8HR 08/26 1300 DC 0 08/29 SUBQ 09/25 1301 1224 Topiramate 50 MG BID 08/26 1300 DC 08/29 PO 09/25 1301 1027 Tramadol HCl 100 MG TID PRN PRN 08/26 1120 AC 0 08/29 PO 09/25 1115 2217 Citalopram 40 MG DAILY 08/26 899 AC 08/29 Hydrobromide PO 09/25 0901 1026 Hydrochlorothiazide 25 MG DAILY 08/26 899 AC 0 08/29 PO 09/25 0901 1026 Lisinopril 20 MG DAILY 08/26 899 AC 08/29 PO 09/25 0901 1026 Metoprolol Tartrate 25 MG BID 08/26 899 AC PO 09/25 0901 2106 Pantoprazole 40 MG DAILY 08/26 0900 DC 08/29 PO 09/25 0901 1027 Sucralfate 1 GM QID 08/26 899 AC 08/29 PO 09/25 0901 2104 Morphine Sulfate 1 MG Q4H PRN PRN 08/26 0040 AC 08/30 IV 09/25 0041 0134 SEE DICTATION Electronically Signed by Jani Mckoy MD 08/30/18 at 1223 RPT #:[id number] END OF REPORT 2018-08-29 15:39:00-00:00 [id number] [place] [address] PATIENT NAME: LEIGH FRYE ADMIT DATE: 08/25/18 ACCOUNT NO: [id number] ROOM NO: [facility] AGE: 38 REPORT TYPE: PROGRESS NOTE SEX: F ADMITTING PHYSICIAN:Jani Mckoy MD ATTENDING PHYSICIAN:Jani Mckoy MD DATE: ADDENDUM TO GENERAL PROGRESS NOTE SUBJECTIVE: The patient is 38-year-old female ad mitted for evaluation of pituitary tumor. She has had ____ headaches. ___ _ showed small abnormalities ____ diagnostic. Prolactin slightly high at 42. Parathyroid slightly high 106, iron saturation is also low. Cortisol level was low normal, B12 low normal 266. TSH low normal is 0.6. T4 normal. Cortisol leve l low normal. Hemoglobin stable at 8.9 and formulation is satisfactory wi th initial report is not available and cracks in the feet ____ ordered a fungal cream ____, hypertension control is satisfactory. The patient is a smoker , pulmonary function scan is pending. ____ of the surgical procedure and postop recove ry. Pain management and mobility issues. Long-term issues of hormone rep lacement therapy ____ rhinorrhea ____ be discussed and she is aware of all the issues and wants to proceed. She has been on heparin DVT prophylaxis are still been discontinued. The patient informed about her ____ to get her l ap band issue, which has been there for several years. She had deferred having it removed, so due to be removed but she is referred to Dr. Phillips. Anemi c, getting iron therapy and ____. No further investigations are planned. Dictated By: Jani Mckoy MD WT: PN:GISSELLE/YONATHAN/JERSON Conf#: [id number]/DID#: [id number] Authenticated by Jani Mckoy MD On 06:02:45 AM at 0603 PATIENT NAME: LEIGH FRYE 2018-08-29 14:24:00-00:00 [facility] ([facility]) General Progress Note REPORT#:[id number] REPORT STATUS: Signed DATE:08/29/18 TIME: 4 PATIENT: LEIGH FRYE UNIT #: [id number] ROOM/BED: [address] : 80 AGE: 38 SEX: F ATTEND: Johana Mckoy MD ADM AUTHOR: Jani Mckoy MD * ALL edits or amendments must be made on the Bio[employer]/computer document * Subjective Comments: Vital Signs Date Time Temp Pulse Resp B/P B/P Pulse O2 O2 F low FiO2 Mean Ox Delivery Rate 08/29 1200 97.7 73 14 126/75 91.6 98 Room air 08/29 0747 98.2 74 14 139/80 99.9 99 Room air 08/29 0403 97.9 60 14 103/63 76.6 96 08/28 2357 97.9 73 14 142/83 102.8 100 08/28 2143 98.2 74 14 108/71 83.4 97 / 1553 97.9 68 14 112/70 84.0 100 Room air 08/28 1153 97.3 61 14 111/55 73.5 100 Room air 08/28 0735 98.1 78 14 138/83 101.4 100 Room ai r 08/28 0418 97.9 69 15 110/70 83.2 97 Room air 08/27 2344 98.2 61 15 111/63 78.5 99 Room air 08/28 2011 98.1 74 16 154/78 103.4 99 Room air 08/27 1546 97.7 62 14 127/72 90.0 98 Room air Laboratory Tests 08/26 1503 Blood Gas Puncture Site R Radial O2 Saturation (92.0 - 98.5 %) 97 ABG pH (7.35 - 7.45) 7.411 ABG pCO2 (35.0 - 45.0 mmHg) 39.2 ABG pO2 (75.0 - 100.0) 82 ABG HCO3 (20.0 - 26.0 MMOL/L) 25.1 ABG Base Excess (-3.0 - 3.0 MMOL/L) 0.0 Navin Test (CHECK) YES O2 Delivery Device Room Air FiO2 (21 - 100 %) 21 Laboratory Tests 08/27 08/27 08/27 08/26 08/26 0503 0503 0503 1730 1503 Chemistry POC Lactic Acid (0.4 - 2.0 MMOL/L) 0.87 Iron (37 - 170 MCG/DL) 26 L TIBC (265 - 497 MCG/DL) 428 % Saturation (12 - 57 %) 6 L Amylase (30 - 110 UNITS/L) 90 Vitamin B12 (239 - 931 pg/mL) 266 Folate (ng/mL) 6.2 PTH Intact (7.5 - 53.5 pg/mL) 106.9 H Laboratory Tests 08/27 08/26 0503 1730 Hematology Hgb (11.2 - 14.9 G/DL) 8.7 L Hct (33.2 - 43.5 %) 29.1 L Plt Count (129 - 368 K/MM3) 305 Recent Impressions: ULTRASOUND - US HEAD AND NECK 08/28 1227 Report Impression - Status: SIGNED Entered: 08/28/2018 1431 Impression: 1. Parathyroid mass, lymphadenopathy is not iden tified. 2. 2.7 cm smoothly marginated mass of the right thyroid gland. The thyroid is not completely evaluated on this stud y. Follow-up with dedicated thyroid evaluation is recommended. Impression By: [email or web address] - Ko Valles M.D. Current Medications Sig/Roshan Start time Last Medication Dose Route Stop Time Status Admin Pantoprazole 40 MG Q12HR 08/29 2100 AC PO 09/28 2100 Vitamin B Complex/ 1 TAB BID 08/28 2100 CKD Vitamin C PO 09/27 2100 1026 Zolpidem Tartrate 5 MG BEDTIME PRN PRN 08/28 19 40 AC 08/28 PO 09/27 1941 2358 Hydroxocobalamin 1,000 MCG DAILY 08/28 1000 CK D 08/29 IM 08/30 0901 1027 Ferric Sodium 125 MG Q24H 08/27 0900 AC 08/29 Gluconate Complex IV 09/01 0959 1028 Sodium Chloride 100 ML Atorvastatin Calcium 40 MG BEDTIME 08/26 2100 A C 08/28 PO 09/25 2101 2145 Heparin Sodium 5,000 UNITS Q8HR 08/26 1300 DC 0 08/29 SUBQ 09/25 1301 1224 Topiramate 50 MG BID 08/26 1300 DC 08/29 PO 09/25 1301 1027 Tramadol HCl 100 MG TID PRN PRN 08/26 1120 AC 0 08/29 PO 09/25 1115 1217 Citalopram 40 MG DAILY 08/26 09 AC 08/29 Hydrobromide PO 09/25 0901 1026 Hydrochlorothiazide 25 MG DAILY 08/26 09 AC 08/29 PO 09/25 0901 1026 Lisinopril 20 MG DAILY 08/26 09 AC 08/29 PO 09/25 0901 1026 Metoprolol Tartrate 25 MG BID 08/26 09 AC PO 09/25 0901 1028 Pantoprazole 40 MG DAILY 08/26 0900 DC 08/29 PO 09/25 0901 1027 Sucralfate 1 GM QID 08/26 09 AC 08/29 PO 09/25 0901 1224 Morphine Sulfate 1 MG Q4H PRN PRN 08/26 0040 AC 08/29 IV 09/25 0041 0559 SEE DICTATION Electronically Signed by Jani Mckoy MD o n 08/29/18 at 1424 RPT #:[id number] END OF REPORT 2018-08-29 14:19:00-00:00 [facility] ([facility]) Neurosurgical Progress Note REPORT#:[id number] REPORT STATUS: Signed DATE:08/29/18 TIME: 1419 PATIENT: LEIGH FRYE UNIT #: [id number] [address] AGE: 38 SEX: F ATTEND: Johana Mckoy MD ADM AUTHOR: Tanya Rodriguez NP * ALL edits or amendments must be made on the el ectronic/computer document * Subjective HPI: Patient reports right sided blurred vison, denie s diplopia. still having headaches. Patient reports Yes: feeling better, headache, normal sensation. No: dizziness, numbness. Review of Systems Eyes: Reports: visual loss/blurred. Denies: diplopia. Respiratory: Reports: SOB. Cardiovascular: Reports: PEREYRA (dyspnea on exertion). GI: Denies: abdominal pain. Musculoskeletal: Denies: extremity pain, extremity swelling. Heme: Denies: bleeding. Neuro: Reports: headache, vision change. Objective General VS/I O: Vital Signs Date Temp Pulse Resp B/P B/P Mean Pulse Ox FiO2 08/28-08/29 97.7-98.2 60-74 14 103-142/63-83 76 .6-102.8 96-100 24 hour I O ending at 0700: 08/29 0700 08/28 1900 Intake Total 300 1550 Output Total 1100 1200 Balance -800 350 Intake, Oral 300 1550 Number 1 Bowel Movements Output, Urine 1100 1200 Medications: Active Meds + DC'd Last 24 Hrs Pantoprazole 40 MG Q12HR PO Vitamin B Complex/Vitamin C 1 TAB BID PO (CKD) Zolpidem Tartrate 5 MG BEDTIME PRN PRN PO Hydroxocobalamin 1,000 MCG DAILY IM (CKD) Ferric Sodium Gluconate Complex 125 MG Q24H IV Sodium Chloride 100 ML Atorvastatin Calcium 40 MG BEDTIME PO Heparin Sodium 5,000 UNITS Q8HR SUBQ (DC) Topiramate 50 MG BID PO (DC) Tramadol HCl 100 MG TID PRN PRN PO Citalopram Hydrobromide 40 MG DAILY PO Hydrochlorothiazide 25 MG DAILY PO Lisinopril 20 MG DAILY PO Metoprolol Tartrate 25 MG BID PO Pantoprazole 40 MG DAILY PO (DC) Sucralfate 1 GM QID PO Morphine Sulfate 1 MG Q4H PRN PRN IV Physical Exam General appearance: alert, awake, oriented Head/Eyes: atraumatic, EOMI, PERRLA, photophobia right eye Neck: full range of motion, non-tender Cardiovascular: normal capillary refill, regular rate rhythm Respiratory: no distress, symmetric expansion Abdomen: non-tender, normal bowel sounds, soft, no distention Genitourinary: deferred Musculoskeletal: normal inspection Neuro/REFERRAL COORDINATOR: alert, oriented X 3, CN II-XII intact , EOMI, PERRL, normal gait, normal reflexes, normal speech, reflexes equal b ilat, no motor deficits, no sensory deficits, Right side blurry vision Skin: dry, intact, no abscess Results Findings/Data: Recent Impressions: ULTRASOUND - US HEAD AND NECK 08/28 1227 Report Impression - Status: SIGNED Entered: 08/28/2018 1431 Impression: 1. Parathyroid mass, lymphadenopathy is not iden tified. 2. 2.7 cm smoothly marginated mass of the right thyroid gland. The thyroid is not completely evaluated on this stud y. Follow-up with dedicated thyroid evaluation is recommended. Impression By: [email or web address] - Ko Valles M.D. Treatment Prophylaxis Treatment Prophylaxis Rubin documentation: The data below has been impo rted from nursing documentation. Any exceptions have been noted below under Provider comments. _ Nursing Documentation Date rubin inserted: Date rubin discontinued: _ Provider comments: [] Diagnosis, Assessment Plan Free Text A P: A: 38 year old female with pituitary adenoma. P: Plan for transsphenoidal pituitary tumor resecti on tomorrow at 1100 NPO at midnight, preoperative tests and labs ord ered and completed CT head with [facility] protocol Electronically Signed by Tanya Rodriguez NP on 08/20 05/10 at 1531 RPT #:[id number] END OF REPORT 2018-08-29 14:19:00-00:00 [facility] ([facility]) Neurosurgical Progress Note REPORT#:[id number] REPORT STATUS: Signed DATE:08/29/18 TIME: 1419 PATIENT: MELVALEIGHJerrod RUBIO UNIT #: [id number] [address] AGE: 38 SEX: F ATTEND: Johana Mckoy MD ADM AUTHOR: Tanya Rodriguez NP * ALL edits or amendments must be made on the BioSTL/computer document * Tnaya Rodriguez NP 08/29/18 1419: Subjective HPI: Patient reports right sided blurred vison, denie s diplopia. still having headaches. Patient reports Yes: feeling better, headache, normal sensation. No: dizziness, numbness. Review of Systems Eyes: Reports: visual loss/blurred. Denies: diplopia. Respiratory: Reports: SOB. Cardiovascular: Reports: PEREYRA (dyspnea on exertion). GI: Denies: abdominal pain. Musculoskeletal: Denies: extremity pain, extremity swelling. Heme: Denies: bleeding. Neuro: Reports: headache, vision change. Objective General VS/I O: Vital Signs Date Temp Pulse Resp B/P B/P Mean Pulse Ox FiO2 08/28-08/29 97.7-98.2 60-74 14 103-142/63-83 76 .6-102.8 96-100 24 hour I O ending at 0700: 08/29 0700 08/28 1900 Intake Total 300 1550 Output Total 1100 1200 Balance -800 350 Intake, Oral 300 1550 Number 1 Bowel Movements Output, Urine 1100 1200 Medications: Active Meds + DC'd Last 24 Hrs Pantoprazole 40 MG Q12HR PO Vitamin B Complex/Vitamin C 1 TAB BID PO (CKD) Zolpidem Tartrate 5 MG BEDTIME PRN PRN PO Hydroxocobalamin 1,000 MCG DAILY IM (CKD) Ferric Sodium Gluconate Complex 125 MG Q24H IV Sodium Chloride 100 ML Atorvastatin Calcium 40 MG BEDTIME PO Heparin Sodium 5,000 UNITS Q8HR SUBQ (DC) Topiramate 50 MG BID PO (DC) Tramadol HCl 100 MG TID PRN PRN PO Citalopram Hydrobromide 40 MG DAILY PO Hydrochlorothiazide 25 MG DAILY PO Lisinopril 20 MG DAILY PO Metoprolol Tartrate 25 MG BID PO Pantoprazole 40 MG DAILY PO (DC) Sucralfate 1 GM QID PO Morphine Sulfate 1 MG Q4H PRN PRN IV Physical Exam General appearance: alert, awake, oriented Head/Eyes: atraumatic, EOMI, PERRLA, photophobia right eye Neck: full range of motion, non-tender Cardiovascular: normal capillary refill, regular rate rhythm Respiratory: no distress, symmetric expansion Abdomen: non-tender, normal bowel sounds, soft, no distention Genitourinary: deferred Musculoskeletal: normal inspection Neuro/REFERRAL COORDINATOR: alert, oriented X 3, CN II-XII intact , EOMI, PERRL, normal gait, normal reflexes, normal speech, reflexes equal b ilat, no motor deficits, no sensory deficits, Right side blurry vision Skin: dry, intact, no abscess Results Findings/Data: Recent Impressions: ULTRASOUND - US HEAD AND NECK 08/28 1227 Report Impression - Status: SIGNED Entered: 08/28/2018 1431 Impression: 1. Parathyroid mass, lymphadenopathy is not iden tified. 2. 2.7 cm smoothly marginated mass of the right thyroid gland. The thyroid is not completely evaluated on this stud y. Follow-up with dedicated thyroid evaluation is recommended. Impression By: [email or web address] - Ko Valles M.D. Treatment Prophylaxis Treatment Prophylaxis Rubin documentation: The data below has been impo rted from nursing documentation. Any exceptions have been noted below under Provider comments. _ Nursing Documentation Date rubin inserted: Date rubin discontinued: _ Provider comments: [] Diagnosis, Assessment Plan Free Text A P: A: 38 year old female with pituitary adenoma. P: Plan for transsphenoidal pituitary tumor resecti on tomorrow at 1100 NPO at midnight, preoperative tests and labs ord ered and completed CT head with [facility] protocol Ozzy Viera 08/31/18 2328: Diagnosis, Assessment Plan Additional comments: Agree with above Electronically Signed by Tanya Rodriguez NP on 08/20 05/10 at 1531 RPT #:[id number] END OF REPORT 2018-08-29 14:19:00-00:00 [facility] ([facility] Neurosurgical Progress Note REPORT#:[id number] REPORT STATUS: Signed DATE:08/29/18 TIME: 1419 PATIENT: LEIGH FRYE UNIT #: [id number] [address] : 80 AGE: 38 SEX: F ATTEND: Tho Mckoy MD ADM AUTHOR: Tanya Rodriguez NP * ALL edits or amendments must be made on the BioSTL/computer document * Tanya Rodriguez NP 08/29/18 1419: Subjective HPI: Patient reports right sided blurred vison, denie s diplopia. still having headaches. Patient reports Yes: feeling better, headache, normal sensation. No: dizziness, numbness. Review of Systems Eyes: Reports: visual loss/blurred. Denies: diplopia. Respiratory: Reports: SOB. Cardiovascular: Reports: PEREYRA (dyspnea on exertion). GI: Denies: abdominal pain. Musculoskeletal: Denies: extremity pain, extremity swelling. Heme: Denies: bleeding. Neuro: Reports: headache, vision change. Objective General VS/I O: Vital Signs Date Temp Pulse Resp B/P B/P Mean Pulse Ox FiO2 08/28-08/29 97.7-98.2 60-74 14 103-142/63-83 76 .6-102.8 96-100 24 hour I O ending at 0700: 08/29 0700 08/28 1900 Intake Total 300 1550 Output Total 1100 1200 Balance -800 350 Intake, Oral 300 1550 Number 1 Bowel Movements Output, Urine 1100 1200 Medications: Active Meds + DC'd Last 24 Hrs Pantoprazole 40 MG Q12HR PO Vitamin B Complex/Vitamin C 1 TAB BID PO (CKD) Zolpidem Tartrate 5 MG BEDTIME PRN PRN PO Hydroxocobalamin 1,000 MCG DAILY IM (CKD) Ferric Sodium Gluconate Complex 125 MG Q24H IV Sodium Chloride 100 ML Atorvastatin Calcium 40 MG BEDTIME PO Heparin Sodium 5,000 UNITS Q8HR SUBQ (DC) Topiramate 50 MG BID PO (DC) Tramadol HCl 100 MG TID PRN PRN PO Citalopram Hydrobromide 40 MG DAILY PO Hydrochlorothiazide 25 MG DAILY PO Lisinopril 20 MG DAILY PO Metoprolol Tartrate 25 MG BID PO Pantoprazole 40 MG DAILY PO (DC) Sucralfate 1 GM QID PO Morphine Sulfate 1 MG Q4H PRN PRN IV Physical Exam General appearance: alert, awake, oriented Head/Eyes: atraumatic, EOMI, PERRLA, photophobia right eye Neck: full range of motion, non-tender Cardiovascular: normal capillary refill, regular rate rhythm Respiratory: no distress, symmetric expansion Abdomen: non-tender, normal bowel sounds, soft, no distention Genitourinary: deferred Musculoskeletal: normal inspection Neuro/REFERRAL COORDINATOR: alert, oriented X 3, CN II-XII intact , EOMI, PERRL, normal gait, normal reflexes, normal speech, reflexes equal b ilat, no motor deficits, no sensory deficits, Right side blurry vision Skin: dry, intact, no abscess Results Findings/Data: Recent Impressions: ULTRASOUND - US HEAD AND NECK 08/28 1227 Report Impression - Status: SIGNED Entered: 08/28/2018 1431 Impression: 1. Parathyroid mass, lymphadenopathy is not iden tified. 2. 2.7 cm smoothly marginated mass of the right thyroid gland. The thyroid is not completely evaluated on this stud y. Follow-up with dedicated thyroid evaluation is recommended. Impression By: [email or web address] - Ko Valles M.D. Treatment Prophylaxis Treatment Prophylaxis Rubin documentation: The data below has been impo rted from nursing documentation. Any exceptions have been noted below under Provider comments. _ Nursing Documentation Date rubin inserted: Date rubin discontinued: _ Provider comments: [] Diagnosis, Assessment Plan Free Text A P: A: 38 year old female with pituitary adenoma. P: Plan for transsphenoidal pituitary tumor resecti on tomorrow at 1100 NPO at midnight, preoperative tests and labs ord ered and completed CT head with [facility] protocol Ozzy Viera 08/31/18 2328: Diagnosis, Assessment Plan Additional comments: Agree with above Electronically Signed by Tanya Rodriguez NP on 08/20 05/10 at 1531 Electronically Signed by Ozzy Viera MD on 08/20 05/10 at 2329 RPT #:[id number] END OF REPORT 2018-08-29 08:58:00-00:00 [facility] ([facility]) Podiatry Consult Note REPORT#:[id number] REPORT STATUS: Signed DATE:08/29/18 TIME: 0858 PATIENT: LEIGH FRYE UNIT #: [id number] ROOM[address]: [address] : 80 AGE: 38 SEX: F ATTEND: Johana Mckoy MD ADM AUTHOR: Malu Stiles DPM R1 * ALL edits or amendments must be made on the SiteMinder/computer document * History of Present Illness HPI: 38 yo female with pmhx, of pituitary abigail noma and obesity consulted to the foot and ankle service for cracked feet. Pt states th at she has very dry scaly plantar skin at ther feet b/l. She remarks that fissures develop dut to the dryness. SHe would like some treatment to help moisturize and treat her feet. No other pedal complaint at this time. History - Adult longitudinal Past medical history: Reports: Thyroid disorder. Additional surgical history: Lap band Smoking status for patients 13 years old or olde r: Former Smoker Medications: Home Medications: Medication Dose/Rte/Freq Days Qty Entered Last Max Daily Dose Reviewed LISINOPRIL/HCTZ 1 TAB PO DAILY 08/25/18 9 (ZESTORETIC 20/25 MG) 2341 0126 Strength: 1 EACH TAB ESCITALOPRAM (LEXAPRO) 40 MG PO DAILY 08/25/18 08/26/18 Strength: 20 MG TAB 2343 0126 ISOSORBIDE 30 MG PO DAILY 08/25/18 08/26/18 MONONITRATE SR 2346 0126 (IMDUR) Strength: 30 MG TAB.SR.24H FAMOTIDINE (PEPCID) 20 MG PO BID 08/25/1810/07 Strength: 40 MG TAB 2347 0126 SUMAtriptan (IMITREX) 50 MG PO ONCEPRN 08/25/18 08/26/18 Strength: 50 MG TAB 2348 0126 ONDANSETRON ODT 4 MG PO BID 08/25/18 08/26/18 (ZOFRAN ODT) 2349 0126 Strength: 4 MG TAB.RAPDIS ATORVASTATIN (LIPITOR) 40 MG PO BEDTIME 9 08/26/18 Strength: 40 MG TAB 2350 0126 hydrOXYzine HCL (ATARAX) 50 MG PO 08/25/1810/07 Strength: 50 MG TAB DAILY PRN PRN SLEEP 2350 012 6 KETOROLAC (TORADOL) 10 MG PO 08/25/18 08/26/18 Strength: 10 MG TAB Q6H PRN PRN PAIN 2351 0126 METOPROLOL TARTRATE 25 MG PO BID 08/25/1808/26 (LOPRESSOR) 2351 0126 Strength: [address] 40 MG PO DAILY 08/25/18 (PROTONIX) 2351 0126 Strength: 40 MG TAB.DR SUCRALFATE (CARAFATE) 1 GM PO QID 08/25/1810/07 Strength: 1 GM TAB 2352 0126 traMADol (ULTRAM) 50 MG PO 08/25/18 08/26/18 Strength: 50 MG TAB TID PRN PRN PAIN 2352 0126 RIVAROXABAN (XARELTO) 20 MG PO DAILY 08/26/18 0 08/26/18 Strength: 20 MG TAB 0106 0126 Current Hospital Medications: Blood Formation,Coagulation Sig/Roshan Start time Last Medication Dose Route Stop Time Status Admin Ferric Sodium 125 MG Q24H 08/27 0900 AC 08/28 Gluconate Complex IV 09/01 0959 0844 (FERRLECIT 62.5MG/ 5ML AMPUL) Sodium Chloride 100 ML (SODIUM CHLORIDE 0.9%) Heparin Sodium 5,000 UNITS Q8HR 08/26 1300 AC 0 08/29 (HEPARIN SODIUM) SUBQ 09/25 1301 0559 Cardiovascular Drugs Sig/Roshan Start time Last Medication Dose Route Stop Time Status Admin Atorvastatin Calcium 40 MG BEDTIME 08/26 2100 A C 08/28 (LIPITOR) PO 09/25 2101 2145 Isosorbide 30 MG DAILY 08/26 899 DC 08/28 Mononitrate PO 09/25 0901 0848 (IMDUR) Lisinopril 20 MG DAILY 08/26 899 AC 08/28 (PRINIVIL) PO 09/25 0901 0848 Metoprolol Tartrate 25 MG BID 08/26 899 AC (LOPRESSOR) PO 09/25 0901 0848 Central Nervous System Agents Sig/Roshan Start time Last Medication Dose Route Stop Time Status Admin Zolpidem Tartrate 5 MG BEDTIME PRN PRN 08/28 19 40 AC 08/28 (AMBIEN (C-IV)) PO 09/27 1941 2358 Tramadol HCl 100 MG TID PRN PRN 08/26 1120 AC 08/28 (ULTRAM) PO 09/25 1115 2358 Citalopram 40 MG DAILY 08/26 09 AC 08/28 Hydrobromide PO 09/25 0901 0847 (CeleXA) Morphine Sulfate 1 MG Q4H PRN PRN 08/26 0040 AC 08/29 (morphine SULFATE (C- IV 09/25 0041 0559 II)) Electrolytic, Caloric, And Yvette Sig/Roshan Start time Last Medication Dose Route Stop Time Status Admin Hydrochlorothiazide 25 MG DAILY 08/26 899 AC 0 08/28 (HYDRODIURIL) PO 09/25 0901 0847 Gastrointestinal Drugs Sig/Roshan Start time Last Medication Dose Route Stop Time Status Admin Famotidine 20 MG BID 08/26 899 DC 08/28 (PEPCID) PO 09/25 0901 0847 Pantoprazole 40 MG DAILY 08/26 899 AC 08/28 (PROTONIX) PO 09/25 0901 0847 Sucralfate 1 GM QID 08/26 899 AC 08/28 (CARAFATE) PO 09/25 0901 2145 Miscellaneous Therapeutic Agen Sig/Roshan Start time Last Medication Dose Route Stop Time Status Admin Topiramate 50 MG BID 08/26 1300 AC 08/28 (TOPAMAX) PO 09/25 1301 2145 Vitamins Sig/Roshan Start time Last Medication Dose Route Stop Time Status Admin Vitamin B Complex/ 1 TAB BID 08/28 2100 CKD Vitamin C PO 09/27 2101 2145 (NEPHRO-JOSÉ) Hydroxocobalamin 1,000 MCG DAILY 08/28 1000 CKD 08/28 (VITAMIN B12 VIAL) IM 08/30 0901 1050 Allergies: Coded Allergies: No Known Allergies (08/25/18) Ambulatory status: Independent Review of Systems Systems reviewed negative: allergy/immun, consti tutional, respiratory Objective Current Medications Medications: Active Meds + DC'd Last 24 Hrs Vitamin B Complex/Vitamin C 1 TAB BID PO (CKD) Zolpidem Tartrate 5 MG BEDTIME PRN PRN PO Hydroxocobalamin 1,000 MCG DAILY IM (CKD) Ferric Sodium Gluconate Complex 125 MG Q24H IV Sodium Chloride 100 ML Atorvastatin Calcium 40 MG BEDTIME PO Heparin Sodium 5,000 UNITS Q8HR SUBQ Topiramate 50 MG BID PO Tramadol HCl 100 MG TID PRN PRN PO Citalopram Hydrobromide 40 MG DAILY PO Famotidine 20 MG BID PO (DC) Hydrochlorothiazide 25 MG DAILY PO Isosorbide Mononitrate 30 MG DAILY PO (DC) Lisinopril 20 MG DAILY PO Metoprolol Tartrate 25 MG BID PO Pantoprazole 40 MG DAILY PO Sucralfate 1 GM QID PO Morphine Sulfate 1 MG Q4H PRN PRN IV Physical Exam General appearance: obese, alert, awake Head/Eyes: atraumatic, normocephalic Respiratory: no distress Extremities: Left moves all, Left normal tone, Left pedal pulses, Left warm, Right moves all, Right normal tone, Right pedal pulses, Right war m LE vascular pulse assess: 2+ R posterior tibialis, 2+ L posterior tibialis , 2+ R dorsalis pedis, 2+ L dorsalis pedis Capillary refill: Capillary refill (in seconds): < 3 seconds Right foot, < 3 seconds Left foot Skin: Xerotic scaly palmar s kin at michelle b/l. Fissuring noted b/l. nO open wounds, or SOI. Results Findings/Data: Recent Impressions: ULTRASOUND - US HEAD AND NECK 08/28 1227 Report Impression - Status: SIGNED Entered: 08/28/2018 1431 Impression: 1. Parathyroid mass, lymphadenopathy is not iden tified. 2. 2.7 cm smoothly marginated mass of the right thyroid gland. The thyroid is not completely evaluated on this stud y. Follow-up with dedicated thyroid evaluation is recommended. Impression By: [email or web address] - Ko Valles M.D. Diagnosis, Assessment Plan Free Text A P: 38 yo female with pmhx, of pituitary abigail noma and obesity consulted to the foot and ankle service for cracked feet. - Tinea pedis b/l - Xerosis b/l 08/29/18 - Pt seen and examined - CLotrimazole cream ordered - Venelex ordered - Pt instructed to apply ointments to plantar fe et 1-2x/day avoiding interdigtial spaces. - Podiatry signing off Electronically Signed by Malu Stiles DPM R1 on 0 08/30/18 at 0931 RPT #:[id number] END OF REPORT 2018-08-29 08:58:00-00:00 [facility] ([facility]) Podiatry Consult Note REPORT#:[id number] REPORT STATUS: Signed DATE:08/29/18 TIME: 08 PATIENT: LEIGH FRYE UNIT #: [id number] ROOM/BED: [facility] : 80 AGE: 38 SEX: F ATTEND: Johana Mckoy MD ADM AUTHOR: Malu Stiles DPM R1 * ALL edits or amendments must be made on the el ectronic/computer document * History of Present Illness HPI: 38 yo female with pmhx, of pituitary abigail noma and obesity consulted to the foot and ankle service for cracked feet. Pt states th at she has very dry scaly plantar skin at ther feet b/l. She remarks that fissures develop dut to the dryness. SHe would like some treatment to help moisturize and treat her feet. No other pedal complaint at this time. History - Adult longitudinal Past medical history: Reports: Thyroid disorder. Additional surgical history: Lap band Smoking status for patients 13 years old or olde r: Former Smoker Medications: Home Medications: Medication Dose/Rte/Freq Days Qty Entered Last Max Daily Dose Reviewed LISINOPRIL/HCTZ 1 TAB PO DAILY 08/25/18 9 (ZESTORETIC 20/25 MG) 2341 0126 Strength: 1 EACH TAB ESCITALOPRAM (LEXAPRO) 40 MG PO DAILY 08/25/18 08/26/18 Strength: 20 MG TAB 2343 0126 ISOSORBIDE 30 MG PO DAILY 08/25/18 08/26/18 MONONITRATE SR 2346 0126 (IMDUR) Strength: 30 MG TAB.SR.24H FAMOTIDINE (PEPCID) 20 MG PO BID 08/25/1808/26 Strength: 40 MG TAB 2347 0126 SUMAtriptan (IMITREX) 50 MG PO ONCEPRN 08/25/18 08/26/18 Strength: 50 MG TAB 2348 0126 ONDANSETRON ODT 4 MG PO BID 08/25/18 08/26/18 (ZOFRAN ODT) 2349 0126 Strength: 4 MG TAB.RAPDIS ATORVASTATIN (LIPITOR) 40 MG PO BEDTIME 9 08/26/18 Strength: 40 MG TAB 2350 0126 hydrOXYzine HCL (ATARAX) 50 MG PO 08/25/1810/07 Strength: 50 MG TAB DAILY PRN PRN SLEEP 2350 012 6 KETOROLAC (TORADOL) 10 MG PO 08/25/18 08/26/18 Strength: 10 MG TAB Q6H PRN PRN PAIN 2351 0126 METOPROLOL TARTRATE 25 MG PO BID 08/25/1808/26 (LOPRESSOR) 2351 0126 Strength: [address] 40 MG PO DAILY 08/25/18 9 (PROTONIX) 2351 0126 Strength: 40 MG TAB. SUCRALFATE (CARAFATE) 1 GM PO QID 08/25/1810/07 Strength: 1 GM TAB 2352 0126 traMADol (ULTRAM) 50 MG PO 08/25/18 08/26/18 Strength: 50 MG TAB TID PRN PRN PAIN 2352 0126 RIVAROXABAN (XARELTO) 20 MG PO DAILY 08/26/18 0 08/26/18 Strength: 20 MG TAB 0106 0126 Current Hospital Medications: Blood Formation,Coagulation Sig/Roshan Start time Last Medication Dose Route Stop Time Status Admin Ferric Sodium 125 MG Q24H 08/27 899 AC 08/28 Gluconate Complex IV 09/01 0959 0844 (FERRLECIT 62.5MG/ 5ML AMPUL) Sodium Chloride 100 ML (SODIUM CHLORIDE 0.9%) Heparin Sodium 5,000 UNITS Q8HR 08/26 1300 AC 08/29 (HEPARIN SODIUM) SUBQ 09/25 1301 0559 Cardiovascular Drugs Sig/Roshan Start time Last Medication Dose Route Stop Time Status Admin Atorvastatin Calcium 40 MG BEDTIME 08/26 2100 A C 08/28 (LIPITOR) PO 09/25 2101 2145 Isosorbide 30 MG DAILY 08/26 899 DC 08/28 Mononitrate PO 09/25 0901 0848 (IMDUR) Lisinopril 20 MG DAILY 08/26 899 AC 08/28 (PRINIVIL) PO 09/25 0901 0848 Metoprolol Tartrate 25 MG BID 08/26 899 AC (LOPRESSOR) PO 09/25 0901 0848 Central Nervous System Agents Sig/Roshan Start time Last Medication Dose Route Stop Time Status Admin Zolpidem Tartrate 5 MG BEDTIME PRN PRN 08/28 19 40 AC 08/28 (AMBIEN (C-IV)) PO 09/27 1941 2358 Tramadol HCl 100 MG TID PRN PRN 08/26 1120 AC 0 08/28 (ULTRAM) PO 09/25 1115 2358 Citalopram 40 MG DAILY 08/26 899 AC 08/28 Hydrobromide PO 09/25 0901 0847 (CeleXA) Morphine Sulfate 1 MG Q4H PRN PRN 08/26 0040 AC 08/29 (morphine SULFATE (C- IV 09/25 0041 0559 II)) Electrolytic, Caloric, And Yvette Sig/Roshan Start time Last Medication Dose Route Stop Time Status Admin Hydrochlorothiazide 25 MG DAILY 08/26 09 AC 0 08/28 (HYDRODIURIL) PO 09/25 0901 0847 Gastrointestinal Drugs Sig/Roshan Start time Last Medication Dose Route Stop Time Status Admin Famotidine 20 MG BID 08/26 899 DC 08/28 (PEPCID) PO 09/25 0901 0847 Pantoprazole 40 MG DAILY 08/26 899 AC 08/28 (PROTONIX) PO 09/25 0901 0847 Sucralfate 1 GM QID 08/26 899 AC 08/28 (CARAFATE) PO 09/25 0901 2145 Miscellaneous Therapeutic Agen Sig/Roshan Start time Last Medication Dose Route Stop Time Status Admin Topiramate 50 MG BID 08/26 1300 AC 08/28 (TOPAMAX) PO 09/25 1301 2145 Vitamins Sig/Roshan Start time Last Medication Dose Route Stop Time Status Admin Vitamin B Complex/ 1 TAB BID 08/28 2100 CKD Vitamin C PO 09/27 2101 2145 (NEPHRO-JOSÉ) Hydroxocobalamin 1,000 MCG DAILY 08/28 1000 CKD 08/28 (VITAMIN B12 VIAL) IM 08/30 0901 1050 Allergies: Coded Allergies: No Known Allergies (08/25/18) Ambulatory status: Independent Review of Systems Systems reviewed negative: allergy/immun, consti tutional, respiratory Objective Current Medications Medications: Active Meds + DC'd Last 24 Hrs Vitamin B Complex/Vitamin C 1 TAB BID PO (CKD) Zolpidem Tartrate 5 MG BEDTIME PRN PRN PO Hydroxocobalamin 1,000 MCG DAILY IM (CKD) Ferric Sodium Gluconate Complex 125 MG Q24H IV Sodium Chloride 100 ML Atorvastatin Calcium 40 MG BEDTIME PO Heparin Sodium 5,000 UNITS Q8HR SUBQ Topiramate 50 MG BID PO Tramadol HCl 100 MG TID PRN PRN PO Citalopram Hydrobromide 40 MG DAILY PO Famotidine 20 MG BID PO (DC) Hydrochlorothiazide 25 MG DAILY PO Isosorbide Mononitrate 30 MG DAILY PO (DC) Lisinopril 20 MG DAILY PO Metoprolol Tartrate 25 MG BID PO Pantoprazole 40 MG DAILY PO Sucralfate 1 GM QID PO Morphine Sulfate 1 MG Q4H PRN PRN IV Physical Exam General appearance: obese, alert, awake Head/Eyes: atraumatic, normocephalic Respiratory: no distress Extremities: Left moves all, Left normal tone, Left pedal pulses, Left warm, Right moves all, Right normal tone, Right pedal pulses, Right war m LE vascular pulse assess: 2+ R posterior tibialis, 2+ L posterior tibialis , 2+ R dorsalis pedis, 2+ L dorsalis pedis Capillary refill: Capillary refill (in seconds): < 3 seconds Right foot, < 3 seconds Left foot Skin: Xerotic scaly palmar s kin at michelle b/l. Fissuring noted b/l. nO open wounds, or SOI. Results Findings/Data: Recent Impressions: ULTRASOUND - US HEAD AND NECK 08/28 1227 Report Impression - Status: SIGNED Entered: 08/28/2018 1431 Impression: 1. Parathyroid mass, lymphadenopathy is not iden tified. 2. 2.7 cm smoothly marginated mass of the right thyroid gland. The thyroid is not completely evaluated on this stud y. Follow-up with dedicated thyroid evaluation is recommended. Impression By: [email or web address] - Ko Valles M.D. Diagnosis, Assessment Plan Free Text A P: 38 yo female with pmhx, of pituitary abigail noma and obesity consulted to the foot and ankle service for cracked feet. - Tinea pedis b/l - Xerosis b/l 08/29/18 - Pt seen and examined - CLotrimazole cream ordered - Venelex ordered - Pt instructed to apply ointments to plantar fe et 1-2x/day avoiding interdigtial spaces. - Podiatry signing off Electronically Signed by Malu Stiles DPGlen R1 on 0 08/30/18 at 0931 Electronically Signed by Matilde BurnhamM on at 0308 RPT #:[id number] END OF REPORT 2018-08-28 18:00:00-00:00 [id number] [address] PATIENT NAME: LEIGH FRYE ADMIT DATE: 08/25/18 ACCOUNT NO: [id number] ROOM NO: Z.504 AGE: 38 REPORT TYPE: PROGRESS NOTE SEX: F ADMITTING PHYSICIAN:Jani Mckoy MD ATTENDING PHYSICIAN:Jani Mckoy MD DATE: ADDENDUM TO GENERAL PROGRESS NOTE SUBJECTIVE: A 38-year-old fe male admitted with persistent headache, blurring of vision, also diagnosed with pituitary adenoma, s o far the workup has revealed very low cortisol level and very low TSH level. Also, she is anemic. Today she mentions that she has notice d small nodules are in different areas of the body. These include a few in the u pper right thigh and a few in the left breast area, I examined, these are less than a pea si zed subcutaneous nodules. They are not irregular in consistency and they are not relate d to deeper structures. There is no redness or heat at the area. No fluctuatio n. No abnormal vascularity. At the breast is about 12 o' clock, few inches above the nipple area and another one about 7 o'clock 3 inches below the nipple. Nodules in the right upper thigh are anterior and medial. I will cici those with the pen tomorrow. She has not had mammograms for a few years and previous stud ies have been negative. No biopsies have been done. A 24-hour urine is in p rogress for checking 24-hour calcium, steroids and 5 hydroxy and lactic acid. As mentioned in the history and physical, she has a history of carcinoid, ap pendix resection and with elevated parathyroid level, multiple endocrine n eoplasia has to be brought as the diagnosis. There is no other new physical fi nding. ASSESSMENT AND PLAN: The patient educated on the plans of evaluation. We will proceed with getting a CT sc an of the abdomen. We will look at the adrenal size and also look at the pancreas if there is any no dule in that area. The subcutaneous nodule may indicate need for a biop sy to rule out neurofibromatosis. She is advised at this point no decision has been made if she needs to have any surgical intervention. Dictated By: Jani Mckoy MD WT: PN:GISSELLE/YONATHAN/JERSON Conf#: [id number]/DID#: [id number] Authenticated by Jani Mckoy MD On 06:01:53 AM PATIENT NAME: LEIGH FRYE at 0602 PATIENT NAME: LEIGH FRYE 2018-08-28 17:05:00-00:00 [phone] [place] [address] PATIENT NAME: LEIGH FRYE ADMIT DATE: 08/25/18 ACCOUNT NO: [id number] ROOM NO: Z.504 AGE: 38 REPORT TYPE: PROGRESS NOTE SEX: F ADMITTING PHYSICIAN:Jani Mckoy MD ATTENDING PHYSICIAN:Jani Mckoy MD DATE: 08/27/2018 ADDENDUM TO GENERAL PROGRESS NOTE SUBJECTIVE: The patient is a 38-year-old female, transferred from [facility] with a history of headaches and finding of a pituitary adenoma. The patient is morbidly obese with a BMI of 55. Her main problem is of persistent headaches, which she was traci d she has migraine, but they do not have the phasic pattern of the migraine. She has constant pain. She has been on high dose of morphine. I recommended that we use minimal dose of morphine to keep her comfortable with Ultram as alternating medicatio n. She has had blurring of vision. Full evaluation is pending. She denies a ny weakness in any part of body other than generalized weakness. No chest p ain, cough or shortness of breath. No nausea, vomiting, or diarrhea. She is regular in her periods. Further discussion about family, which she had n ot given before, includes adrenal hyperplasia in her b rother needing surgery. She is not aware of anybody with thyroid or parathyroid issues or ad renal or pancreatic issues. She has no chest pain, cough, or shortness of breath, no na usea, vomiting, or diarrhea. She has vision changes, bilateral, not evaluated yet in detail. Her lab data, vital signs, and medications in the printed portion of the general progress note have been reviewed. LABORATORY DATA: Significant lab data, TSH is lo w normal at 0.633. The normal range is 0.46 to 4.68. T4 free and T4 are normal . Cortisol a.m. level is always on the low side 4.5. Normal range is 4.46 to 22.7. Parathyroid intact is high 109, normal range is 7.5 to 53.5. ASSESSMENT AND PLAN: The patient is anemic and t he indices are favoring iron deficiency. The patient has had excessive blood loss with her periods and it is probably a contributing factor. Her MRI of the p ituitary is with Dr. Viera for review and I will discuss with him if repeat eduardo dy is necessary. Physical findings are unchanged. Dictated By: Jani Mckoy MD WT: PN:GISSELLE/YONATHAN/JERSON Conf#: [id number]/DID#: [id number] PATIENT NAME: LEIGH FRYE Authenticated by Jani Mckoy MD On 06:01:46 AM at 0602 PATIENT NAME: LEIGH FRYE 2018-08-28 14:01:00-00:00 [facility] ([facility]) General Progress Note REPORT#:[id number] REPORT STATUS: Signed DATE:08/28/18 TIME: 1401 PATIENT: LEIGH FRYE UNIT #: [id number] AGE: 38 SEX: F ATTEND: Johana Mckoy MD ADM AUTHOR: Jani Mckoy MD * ALL edits or amendments must be made on the el [employer]/computer document * Subjective Comments: Vital Signs Date Time Temp Pulse Resp B/P B/P Pulse O2 O2 F low FiO2 Mean Ox Delivery Rate 08/28 1153 97.3 61 14 111/55 73.5 100 Room air 08/28 0735 98.1 78 14 138/83 101.4 100 Room air 06/ 0418 97.9 69 15 110/70 83.2 97 Room air 06/08 2344 98.2 61 15 111/63 78.5 99 Room air 08/28 2011 98.1 74 16 154/78 103.4 99 Room air 06/08 1546 97.7 62 14 127/72 90.0 98 Room air 06/08 1217 97.7 64 14 144/71 95.3 96 Room air 06/08 0751 98.1 77 14 122/72 89.1 98 Room air 06/08 0436 98.2 59 15 119/73 88.3 97 Room air 06/07 2324 98.2 75 14 138/74 95.2 96 Room air 06/07 1943 98.4 77 15 120/74 89.5 97 Room air 06/07 1550 98.8 69 16 111/73 85.4 97 Room air Microbiology: 08/26 0004 NASAL: MRSA Screen - COMP Current Medications Sig/Roshan Start time Last Medication Dose Route Stop Time Status Admin Vitamin B Complex/ 1 TAB BID 08/28 2100 CKD Vitamin C PO 09/27 2100 Hydroxocobalamin 1,000 MCG DAILY 08/28 1000 CK D 08/28 IM 08/30 0901 1050 Ferric Sodium 125 MG Q24H 08/27 899 AC 08/28 Gluconate Complex IV 09/01 0959 0844 Sodium Chloride 100 ML Atorvastatin Calcium 40 MG BEDTIME 08/26 2100 A C 08/27 PO 09/25 210 2020 Heparin Sodium 5,000 UNITS Q8HR 08/26 1300 AC 0 08/28 SUBQ 09/25 1301 1324 Topiramate 50 MG BID 08/26 1300 AC 08/28 PO 09/25 1301 0846 Tramadol HCl 100 MG TID PRN PRN 08/26 1120 AC 0 08/28 PO 09/25 1115 0616 Citalopram 40 MG DAILY 08/26 899 AC 08/28 Hydrobromide PO 09/25 0901 0847 Famotidine 20 MG BID 08/26 899 DC 08/28 PO 09/25 0901 0847 Hydrochlorothiazide 25 MG DAILY 08/26 899 AC 0 08/28 PO 09/25 0901 0847 Isosorbide 30 MG DAILY 08/26 899 DC 08/28 Mononitrate PO 09/25 900 0848 Lisinopril 20 MG DAILY 08/26 899 AC 08/28 PO 09/25 900 0848 Metoprolol Tartrate 25 MG BID 08/26 899 AC PO 09/25 900 0848 Pantoprazole 40 MG DAILY 08/26 899 AC 08/28 PO 09/25 09 0847 Sucralfate 1 GM QID 08/26 899 AC 08/28 PO 09/25 900 1324 Morphine Sulfate 1 MG Q4H PRN PRN 08/26 0040 AC 08/28 IV 09/25 0041 1324 SEE DICTATION Electronically Signed by Jani Mckoy MD o n 08/28/18 at 1402 RPT #:[id number] END OF REPORT 2018-08-28 13:01:00-00:00 [facility] ([facility]) Neurosurgical Progress Note REPORT#:[id number] REPORT STATUS: Signed DATE:08/28/18 TIME: 1301 PATIENT: LEIGH FRYE UNIT #: [id number] ROOM/BED: [address] : 80 AGE: 38 SEX: F ATTEND: Johana Mckoy MD ADM AUTHOR: Ozzy Viera MD * ALL edits or amendments must be made on the [employer]/computer document * Subjective Chief Complaint: No acute events overnight Objective General VS/I O: Vital Signs Date Temp Pulse Resp B/P B/P Mean Pulse Ox FiO2 08/27-08/28 97.3-98.2 61-78 14-16 110-154/55-83 73.5-103.4 97-100 24 hour I O ending at 0700: 08/28 0700 08/27 1900 Intake Total 500 Output Total 1600 Balance -1100 Intake, Oral 500 Number 0 Bowel Movements Number Voids 5 Output, Urine 1600 Physical Exam Head/Eyes: atraumatic, EOMI, PERRLA ENT: normal nose, moist mucosal membranes Neck: full range of motion, non-tender Cardiovascular: normal capillary refill, BP/puls es equal bilat. Respiratory: no distress, symmetric expansion Abdomen: non-tender, normal bowel sounds, soft, no distention Genitourinary: deferred Musculoskeletal: full range of motion, normal in spection Neuro/REFERRAL COORDINATOR: alert, oriented X 3, CN II-XII intact , EOMI, PERRL, normal gait, normal reflexes, normal speech, reflexes equal b ilat, no motor deficits, no sensory deficits, Right side blurry vision Skin: dry, intact, no abscess Lymphatics: inguinal normal, no lymphadenopathy Psychiatry: no hallucinations, normal affect Results Results: labs reviewed, CT personally reviewed, MRI personally reviewed Diagnosis, Assessment Plan Free Text A P: A: 38 year old female with pituitary adenoma P: Await results from full endocrine panel Electronically Signed by Ozzy Viera MD on 12/08 at 1302 RPT #:[id number] END OF REPORT 2018-08-27 16:10:00-00:00 [facility] ([facility]) General Progress Note REPORT#:[id number] REPORT STATUS: Signed DATE:08/27/18 TIME: 1610 PATIENT: LEIGH FRYE UNIT #: [id number] ROOM/BED: [address] : 80 AGE: 38 SEX: F ATTEND: Johana Mckoy MD ADM AUTHOR: Jani Mckoy MD * ALL edits or amendments must be made on the [employer]/computer document * Subjective Comments: Vital Signs Date Time Temp Pulse Resp B/P B/P Pulse O2 O2 F low FiO2 Mean Ox Delivery Rate 08/27 1546 97.7 62 14 127/72 90.0 98 Room air /08 1217 97.7 64 14 144/71 95.3 96 Room air 06/08 0751 98.1 77 14 122/72 89.1 98 Room air 06/08 0436 98.2 59 15 119/73 88.3 97 Room air 06/07 2324 98.2 75 14 138/74 95.2 96 Room air 06/ 1943 98.4 77 15 120/74 89.5 97 Room air 06/07 1550 98.8 69 16 111/73 85.4 97 Room air 06/07 1225 98.4 69 14 120/69 85.7 98 Room air / 0751 97.5 62 14 124/74 90.9 98 Room air /07 0457 97.5 64 14 103/64 77.1 98 Room air / 2337 98.2 63 14 155/90 111.6 100 Room air Laboratory Tests: 08/27 08/27 08/26 0503 0503 1730 Chemistry Iron (37 - 170 MCG/DL) 26 L TIBC (265 - 497 MCG/DL) 428 % Saturation (12 - 57 %) 6 L Vitamin B12 (239 - 931 pg/mL) 266 Folate (ng/mL) 6.2 PTH Intact (7.5 - 53.5 pg/mL) 106.9 H Hematology Hgb (11.2 - 14.9 G/DL) 8.7 L Hct (33.2 - 43.5 %) 29.1 L Plt Count (129 - 368 K/MM3) 305 Microbiology: 08/27 3 NASAL: MRSA Screen - COMP Current Medications Sig/Roshan Start time Last Medication Dose Route Stop Time Status Admin Ferric Sodium 125 MG Q24H 08/27 899 AC 08/27 Gluconate Complex IV 09/01 0959 1009 Sodium Chloride 100 ML Atorvastatin Calcium 40 MG BEDTIME 08/26 2100 A C 08/26 PO 09/25 Heparin Sodium 5,000 UNITS Q8HR 08/26 1300 AC 0 08/27 SUBQ 09/25 1301 1311 Topiramate 50 MG BID 08/26 1300 AC 08/27 PO 09/25 1301 0955 Tramadol HCl 100 MG TID PRN PRN 08/26 1120 AC 0 08/27 PO 09/25 1115 1425 Citalopram 40 MG DAILY 08/26 899 AC 08/27 Hydrobromide PO 09/25 900 0957 Famotidine 20 MG BID 08/26 899 AC 08/27 PO 09/25 0901 1008 Hydrochlorothiazide 25 MG DAILY 08/26 899 AC 0 08/27 PO 09/25 0901 0956 Isosorbide 30 MG DAILY 08/26 899 AC 08/27 Mononitrate PO 09/25 0801 0957 Lisinopril 20 MG DAILY 08/26 899 AC 08/27 PO 09/25 09 0957 Metoprolol Tartrate 25 MG BID 08/26 899 AC PO 09/25 0901 0956 Pantoprazole 40 MG DAILY 08/26 899 AC 08/27 PO 09/25 09 0957 Sucralfate 1 GM QID 08/26 899 AC 08/27 PO 09/25 900 1311 Morphine Sulfate 1 MG Q4H PRN PRN 08/26 0040 AC 08/27 IV 09/25 0041 0959 SEE DICTATION Electronically Signed by Jani Mckoy MD o n 08/27/18 at 1611 RPT #:[id number] END OF REPORT 2018-08-27 12:11:00-00:00 [facility] ([facility]) Neurosurgical Progress Note REPORT#:[id number] REPORT STATUS: Signed DATE:08/27/18 TIME: 1211 PATIENT: LEIGH FRYE UNIT #: [id number] ROOM/BED: [address] : 80 AGE: 38 SEX: F ATTEND: Tho Mckoy MD ADM AUTHOR: Ozzy Viera MD * ALL edits or amendments must be made on the [employer] document * Subjective Chief Complaint: No acute events overnight Objective General VS/I O: Vital Signs Date Temp Pulse Resp B/P B/P Mean Pulse Ox FiO 2 08/26-08/27 98.1-98.8 59-77 14-16 111-138/69-74 85.4-95.2 96-98 24 hour I O ending at 0700: 08/27 0700 08/26 1900 Intake Total 1600 Output Total 1500 Balance 100 Intake, Oral 1600 Number 0 Bowel Movements Number Voids 5 Output, Urine 1500 Physical Exam Head/Eyes: atraumatic, EOMI, PERRLA ENT: normal nose, moist mucosal membranes Neck: full range of motion, non-tender Cardiovascular: normal capillary refill, BP/puls es equal bilat. Respiratory: no distress, symmetric expansion Abdomen: non-tender, normal bowel sounds, soft, no distention Genitourinary: deferred Musculoskeletal: full range of motion, normal in spection Neuro/REFERRAL COORDINATOR: alert, oriented X 3, CN II-XII intact , EOMI, PERRL, normal gait, normal reflexes, normal speech, reflexes equal b ilat, no motor deficits, no sensory deficits, Right side blurry vision Skin: dry, intact, no abscess Lymphatics: inguinal normal, no lymphadenopathy Psychiatry: no hallucinations, normal affect Results Findings/Data: Laboratory Tests 08/26 1503 Blood Gas Puncture Site R Radial O2 Saturation (92.0 - 98.5 %) 97 ABG pH (7.35 - 7.45) 7.411 ABG pCO2 (35.0 - 45.0 mmHg) 39.2 ABG pO2 (75.0 - 100.0) 82 ABG HCO3 (20.0 - 26.0 MMOL/L) 25.1 ABG Base Excess (-3.0 - 3.0 MMOL/L) 0.0 Navin Test (CHECK) YES O2 Delivery Device Room Air FiO2 (21 - 100 %) 21 Laboratory Tests 08/27 08/27 08/26 08/26 0503 0503 1730 1503 Chemistry POC Lactic Acid (0.4 - 2.0 MMOL/L) 0.87 Iron (37 - 170 MCG/DL) 26 L TIBC (265 - 497 MCG/DL) 428 % Saturation (12 - 57 %) 6 L Vitamin B12 (239 - 931 pg/mL) 266 Folate (ng/mL) 6.2 PTH Intact (7.5 - 53.5 pg/mL) 106.9 H Laboratory Tests 08/27 08/26 0503 1730 Hematology Hgb (11.2 - 14.9 G/DL) 8.7 L Hct (33.2 - 43.5 %) 29.1 L Plt Count (129 - 368 K/MM3) 305 Diagnosis, Assessment Plan Free Text A P: A: 38 year old female with pituitary adenoma P: Await results from full endocrine panel Electronically Signed by Ozzy Viera MD on 11/07 at 1212 RPT #:[id number] END OF REPORT 2018-08-26 19:29:00-00:00 [id number] [place] [address] PATIENT NAME: LEIGH FRYE ADMIT DATE: 08/25/18 ACCOUNT NO: [id number] ROOM NO: Z.504 AGE: 38 REPORT TYPE: HISTORY AND PHYSICAL SEX: F ADMITTING PHYSICIAN:Jani Mckoy MD ATTENDING PHYSICIAN:Jani Mckoy MD ADMISSION DATE: 08/25/2018 HISTORY OF PRESENT ILLNESS: The patient is a 38- year-old female, accepted by Dr. Viera, neurosurgeon; transferred from [facility]. 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 The lab data they have sent us wit h her does not give us a clearcut hormone disorder diagnosis. The patient was advised that we will need some additional workup done prior to deciding a line of intervention. The patient had presented with recurring hea daches and she claimed that she spends most of the day in bed. She takes pain m edicine. Vague about type of medicines and which physician's she is taking pain medication. The only diagnosis she has is of migraine. Also, she complains of migraines every day and she spends several days in bed because of that. Associated with headaches, she has occasionally blurred vision, occasionally nausea , no vomiting. She could not really describe any true photophobia, blind spot s, weakness, or flashes of light. She could not also localize headache to a ny one side consistently. Overall, her description of headaches on the frequency to a daily basis does not match a classical migraine. She has not been on any suppressive medication for the migraine. Has significant medical issues. Fi rst one being morbid obesity. She is about 360 pounds. Calculated BMI is 55.6, which reported as extreme massive obesity. Weight recorded here on a bed s elizabeth is 186 kg. She said that she has high blood pressure, reflux esophagitis, and depression. 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 She was placed on Xarelto, which she stopped taking due to financial reasons. Other operations include x2 and appe ndix surgery with finding of carcinoid colon resection. The transfer records from [facility] did not indicate that she takes morphine, although she cl aims that she has been taking morphine for migraine, which will not be a typical medica tion. Additional surgical history mentioned later is lithotripsy for renal stones and lap band surgery. PHYSICAL EXAMINATION: GENERAL: The patient is alert, oriented, not in distress. VITAL SIGNS: Blood pressure is 120/60, h eart rate 60, respiratory rate 16, and temperature 98. HEENT: No external head injury. Pupils are equal and reactive. No jaundice. Eyes movements are normal without any nystagmus. Face is symmetrical. NECK: Supple. JVP not raised. No bruit. Rest of evaluation difficult because of morbid obesity. No palpable nodule or thyroid nodule were noted. No lymphadenopathy. LUNGS: Breath sounds are distant and normal. CARDIAC: Size cannot be judged. Sounds are dista nt and normal. No murmur. PATIENT NAME: LEIGH FRYE BREASTS: Limited evaluation. No mass. ABDOMEN: Massive in size. Examination limited. N o palpable mass or tenderness. EXTREMITIES: Extremities do not reveal any edema or calf tenderness. No acute arthritis. No subcutaneous nodules. Pulsations a re intact. LABORATORY DATA: Lab data [facility] reviewed and there are no high values of any of the pituita ry hormones. Asked the patient's perspective if she has been tested for sleep apnea. She denies. She has never been tested and does not snore. ASSESSMENT AND PLAN: The patient has headaches, intermittent, does not appear to be classical migraine. Some of the headaches may be because of overuse of narcotics. She does have a pituitary mass. Discu ssed with Dr. Viera, but her pattern of headaches is not consistent with the diagnosis. I reviewed her MRI sent with her to see if there is any concern. 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 We will get her vision renan ds checked and discuss with Dr. Viera if we are going to repeat her MRI. If she needs surgery, we will get preoperative echocardiogram and pulmonary function testing. I n addition to basal lab data, we will check her lipids and postprandial sugars . Monitor blood sugar if necessary. I will keep her on DVT prophylaxis wi th heparin at 5000 every 8 hours. Check venous thrombophilia profile to feb fariba if she needs long-term prophylaxis. A complex case. Dr. Viera is brennen dave. We will get additional consults as appropriate. I d id advise the patient that she will need a trial of Topamax to prevent migraines and she agrees to b e started. I will start at 50 mg twice a day. Dictated By: Jani Mckoy MD WT: HP:GISSELLE/AJMSU/NTS Conf#: [id number]/DID#: [id number] Authenticated by Jani Mckoy MD On 05:59:29 AM at 0559 PATIENT NAME: LEIGH FRYE 2018-08-26 15:16:00-00:00 [id number] [place] [address] PATIENT NAME: LEIGH FRYE ADMIT DATE: 08/25/18 ACCOUNT NO: [id number] ROOM NO: Z.535 AGE: 38 REPORT TYPE: ECHOCARDIOGRAM SEX: F ADMITTING PHYSICIAN:Jani Mckoy MD ATTENDING PHYSICIAN:Jani Mckoy MD *[facility]* [address] [place] [address] Transthoracic Echocardiogram Patient: Leigh Frye Study Date: 08/26/2018 BP: 120 / 69 Location: [facility] URN: [id number] : 1980 Age: 38 Height: 72 in / 182.9 cm Gender: F Weight: 41 1.1 lb / 186.9 kg BMI/BSA: 55.9 kg/m 2 / 3.19 m 2 *Ordering Physician: * Jani Mckoy *Interpreting Physician: * Qiana Waters MD *Community Development Coordinator: * Blade Smith BS, RCS, RVS Indications: HX Saddle PE. Study data: Transthoracic echocardiogram. Proced ure: Transthoracic echocardiography was performed. Images were obta ined using a [employer] cardiac ultrasound machine. Image quality was poor. The study was technically limited due to poor acoustic window availability and body habitus. Complete 2D, complete spectral Doppler, and colo r Doppler. Location: Bedside. Patient status: Inpatient. Patient room number: 535-A. Findings Left ventricle: The cavity size is normal. There is no hypertrophy. Systolic function is normal. The estimated eject ion fraction is 65-69%. Wall motion is normal; there are no regional wal l motion abnormalities. The tissue Doppler parameters are abnormal. Dopp ler parameters are consistent with abnormal left ventricular relaxa tion (grade 1 diastolic PATIENT NAME: LEIGH FRYE dysfunction). Right ventricle: Not well visualized. The cavity size is normal. Systolic function is normal. Systolic pressure i s within the normal range. Ventricular septum: The ventricular septum is no rmal. Left atrium: Not well visualized. The atrium is normal in size. Right atrium: Not well visualized. The atrium is normal in size. Atrial septum: No defect or patent foramen ovale is identified. Aorta: The aorta is normal. Aortic valve: Not well visualized. There is no r egurgitation. Mitral valve: Not well visualized. There is no r egurgitation. Tricuspid valve: Not well visualized. There is t rivial regurgitation. Pulmonic valve: Poorly visualized. Pericardium: There is no pericardial effusion. N o evidence of pleural fluid accumulation. Systemic veins: Inferior vena cava: Not visualized. Measurements Left ventricle Value Ref Left atrium continued Value Ref CELESTINO, LAX 5.4 cm 3.8 - 5.2 AP dim ES, LAX 4.1 cm 2.7 - 3.8 ESD, LAX 3.4 cm 2.2 - 3.5 SI dim ES, LAX 4.1 cm --------- ESD/bsa, LAX 1.1 cm/m 2 1.3 - 2.1 AP dim, ES MM 4.1 cm 2.7 - 3.8 FS, LAX 37 % 27 - 45 LA/Ao root ratio, MM 1.39 --------- ESD 3.4 cm 2.2 - 3.5 ESD/bsa 1.1 cm/m 2 1.3 - 2.1 Aortic valve Value Ref FS 37 % 27 - 45 Leaflet sep, MM 2.03 cm --------- PW, ED 0.7 cm 0.6 - 0.9 Peak v, S 1.58 m/sec --------- PW, ES 1.4 cm Mean v, S 0.97 m/sec --------- IVS/PW, ED 1.35 VTI, S 30.6 cm --------- EF 66 % 54 - 74 Mean grad, S 4.7 mm Hg --------- EF, SMM Teich. 66 % >=55 Peak grad, S 10.0 mm Hg --------- LVOT/AV, VTI ratio 0.8 --------- LVOT Value Ref DARRION, VTI 2.69 cm 2 --------- Diam, S 2.07 cm LVOT/AV, Vpeak rati o 0.85 --------- Area 3.4 cm 2 DARRION, Vmax 2.88 cm 2 --------- PATIENT NAME: LEIGH FRYE Peak chandan, S 1.35 m/sec Mean chandan, S 0.84 m/sec Mitral valve Value Ref VTI, S 24.4 cm Peak E 0.88 m/sec --------- Peak grad, S 7 mm Hg Peak A 0.61 m/sec --------- Mean grad, S 4 mm Hg Mean v, D 0.53 m/sec --------- SV 82 ml VTI leaflet coapt 28.2 cm --------- Qs 5.54 L/min Decel time 192 ms --------- Qs/bsa 1.7 L/(min-m 2) Mean grad, D 1.4 mm Hg --------- SV/bsa 26 ml/m 2 Peak grad, D 4.6 mm Hg --------- Peak E/A ratio 1.45 --------- Ventricular septum Value Ref IVS, ED 1.0 cm 0.6 - 0.9 Pulmonic valve Value Ref IVS, ES 1.5 cm IN v, ED 0.67 m/sec --------- Right ventricle Value Ref Tricuspid valve Value Ref CELESTINO, LAX 2.7 cm TR peak v 1.63 m/sec <=2.8 CELESTINO 2.7 cm Peak RV-RA grad, S 11 mm Hg --------- Pressure, S 21 mm Hg Aortic root Value Ref RVOT Value Ref Root diam, ED MM 2.93 cm --------- Peak v, S 0.97 m/sec Peak grad, S 4 mm Hg Pulmonary carlton ry Value Ref Pressure, S 15.9 mm Hg --------- Left atrium Value Ref LA ID 4.1 cm Systemic veins Value Ref AP dim, ES 4.06 cm 2.70 - 3.80 Estimated CVP 10 mm Hg --------- Conclusions Summary: 1. Left ventricle: The cavity size is normal. Sy stolic function is normal. The estimated ejection fraction is 65-6 9%. Wall motion is PATIENT NAME: LEIGH FRYE normal; there are no regional wall motion abnor malities. Doppler parameters are consistent with abnormal left ve ntricular relaxation (grade 1 diastolic dysfunction). 2. Right ventricle: The cavity size is normal. S ystolic function is normal. The RV pressure during systole by Doppl er is 21 mm Hg. Prepared and electronically signed by Qiana Waters MD 08/26/2018 15:15 Electronically Signed by Qiana Waters MD on 10/07 at 1516 PATIENT NAME: LEIGH FRYE 2018-08-26 09:35:00-00:00 [facility] ([facility]) Neurosurgical Consultation REPORT#:[id number] REPORT STATUS: Signed DATE:08/26/18 TIME: 934 PATIENT: LEIGH FRYE UNIT #: [id number] ROOM/BED: [address] : [birth year] AGE: 38 SEX: F ATTEND: Johana Mckoy MD ADM AUTHOR: Ozzy Viera MD * ALL edits or amendments must be made on the [employer] document * History of Present Illness Requesting clinician: Dr. Jani Mckoy Reason for consult: Pituitary adenoma Chief complaint: Headaches HPI: This is a 38 year old female who has bee n havinbg long standing headaches. She states that since Wednesday it has worsened to the point that it is severe. It is described as a pounding headache. It is not impr gilberto significantly with the morphine. She also states that her right visual field is blurry. History - Adult longitudinal Past medical history: Reports: Thyroid disorder. Additional surgical history: Lap band Smoking status for patients 13 years old or olde r: Former Smoker Medications: Home Medications: Medication Dose/Rte/Freq Days Qty Entered Last Max Daily Dose Reviewed LISINOPRIL/HCTZ 1 TAB PO DAILY 08/25/18 (ZESTORETIC 20/25 MG) 2341 0126 Strength: 1 EACH TAB ESCITALOPRAM (LEXAPRO) 40 MG PO DAILY 08/25/18 08/26/18 Strength: 20 MG TAB 2343 0126 ISOSORBIDE 30 MG PO DAILY 08/25/18 08/26/18 MONONITRATE SR 2346 0126 (IMDUR) Strength: 30 MG TAB.SR.24H FAMOTIDINE (PEPCID) 20 MG PO BID 08/25/1808/26 Strength: 40 MG TAB 2347 0126 SUMAtriptan (IMITREX) 50 MG PO ONCEPRN 08/25/18 08/26/18 Strength: 50 MG TAB 2348 0126 ONDANSETRON ODT 4 MG PO BID 08/25/18 08/26/18 (ZOFRAN ODT) 2349 0126 Strength: 4 MG TAB.RAPDIS ATORVASTATIN (LIPITOR) 40 MG PO BEDTIME 9 08/26/18 Strength: 40 MG TAB 2350 0126 hydrOXYzine HCL (ATARAX) 50 MG PO 08/25/1810/07 Strength: 50 MG TAB DAILY PRN PRN SLEEP 2350 012 6 KETOROLAC (TORADOL) 10 MG PO 08/25/18 08/26/18 Strength: 10 MG TAB Q6H PRN PRN PAIN 2351 0126 METOPROLOL TARTRATE 25 MG PO BID 08/25/1810/07 (LOPRESSOR) 2351 0126 Strength: [address] 40 MG PO DAILY 08/25/18 9 (PROTONIX) 2351 0126 Strength: 40 MG TAB. SUCRALFATE (CARAFATE) 1 GM PO QID 08/25/1810/07 Strength: 1 GM TAB 2352 0126 traMADol (ULTRAM) 50 MG PO 08/25/18 08/26/18 Strength: 50 MG TAB TID PRN PRN PAIN 2352 0126 RIVAROXABAN (XARELTO) 20 MG PO DAILY 08/26/18 0 08/26/18 Strength: 20 MG TAB 0106 0126 Current Hospital Medications: Cardiovascular Drugs Sig/Roshan Start time Last Medication Dose Route Stop Time Status Admin Atorvastatin Calcium 40 MG BEDTIME 08/26 2100 A C (LIPITOR) PO 09/25 2100 Isosorbide 30 MG DAILY 08/26 899 AC Mononitrate PO 09/25 900 (IMDUR) Lisinopril 20 MG DAILY 08/26 899 AC (PRINIVIL) PO 09/25 900 Lisinopril/HCTZ 1 EACH DAILY 08/26 899 CAN (PRINZIDE 20-25 MG PO 09/25 09 Tab) Metoprolol Tartrate 25 MG BID 08/26 09 AC (LOPRESSOR) PO 09/25 900 Central Nervous System Agents Sig/Roshan Start time Last Medication Dose Route Stop Time Status Admin Citalopram 40 MG DAILY 08/26 09 AC Hydrobromide PO 09/25 900 (CeleXA) Morphine Sulfate 1 MG Q4H PRN PRN 08/26 0040 AC 08/26 (morphine SULFATE (C- IV 09/25 004 0726 II)) Tramadol HCl 50 MG TID PRN PRN 08/26 0010 AC (ULTRAM) PO 09/24 2356 0130 Electrolytic, Caloric, And Yvette Sig/Roshan Start time Last Medication Dose Route Stop Time Status Admin Hydrochlorothiazide 25 MG DAILY 08/26 899 AC (HYDRODIURIL) PO 09/25 900 Gastrointestinal Drugs Sig/Roshan Start time Last Medication Dose Route Stop Time Status Admin Famotidine 20 MG BID 08/26 899 AC (PEPCID) PO 09/25 900 Pantoprazole 40 MG DAILY 08/26 899 AC (PROTONIX) PO 09/25 900 Sucralfate 1 GM QID 08/26 899 AC (CARAFATE) PO 09/25 900 Allergies: Coded Allergies: No Known Allergies (08/25/18) Review of Systems ROS Systems reviewed negative: allergy/immun, cardio vascular, constitutional, endocrine, ENT, GI, , heme, musculoske letal, neuro, psych, respiratory, skin Objective VS/I O: Last Documented: Result Date Time Pulse Ox 98 08/26 075 B/P 124/74 08/26 0751 B/P Mean 90.9 08/26 750 O2 Delivery Room air 08/26 750 Temp 97.5 08/26 750 Pulse 62 08/26 0751 Resp 14 08/26 0751 24 hour I O ending at 0700: 08/26 1900 Intake Total 360 Output Total Balance 360 Intake, Oral 360 Number 1 Bowel Movements Number Voids 1 Patient 187.135 kg Weight Weight Bed scale Measurement Method General appearance: obese, alert, awake, oriente d Head/Eyes: atraumatic, EOMI, PERRLA ENT: normal nose, moist mucosal membranes Neck: full range of motion, non-tender Cardiovascular: normal capillary refill, BP/puls es equal bilat. Respiratory: no distress, symmetric expansion Abdomen: non-tender, normal bowel sounds, soft, no distention Genitourinary: deferred Musculoskeletal: full range of motion, normal in spection Neuro/REFERRAL COORDINATOR: alert, oriented X 3, CN II-XII intact , EOMI, PERRL, normal gait, normal reflexes, normal speech, reflexes equal b ilat, no motor deficits, no sensory deficits, Right side blurry vision Skin: dry, intact, no abscess Lymphatics: inguinal normal, no lymphadenopathy Psychiatry: no hallucinations, normal affect Results Results: labs reviewed Diagnosis, Assessment Plan Free Text A P: A: 38 year old female with pituitary adenoma P: Await results from full endocrine panel MRI pending Will make further recommendations after studies are complete Discussed with Dr. Mckoy Reviewed medical records from [facility] Electronically Signed by Ozzy Viera MD on 10/07 at 0940 RPT #:[id number] END OF REPORT 2018-08-23 06:36:00-00:00 Patient Name: LEIGH FRYE [facility] : 1980. Age: 38 years. Gender: Female. MR: [id number]. Location: [facility]. Provider: Janette Porter DO. EXAM: Brain Pituitary w/wo contrast MRI. PROVIDED CLINICAL HISTORY: Pituitary mass identi fied on a brain CT. TECHNIQUE: Multi-sequence, m ulti-planar MR of the brain without and with gadolinium contrast. Thin-section pre-and post contrast dynamic T1 images through the sella. CONTRAST: Dotarem, dose not provided by the performing technologist but available elsewhere in the medical record. COMPARISON: CT Brain performed 08/22/2018. FINDINGS: PITUITARY: -- Markedly enlarged heterog enous mass measuring 1.9 cm (AP) x 2.5 cm (medial- lateral) x 2.2 cm (craniocaudal), situated within the pituitary fossa and extending into the suprasellar region, contacting and slightly superiorly disp lacing the optic chiasm. The pituitary gland is inseparable from this mass. Features are consistent with microadenoma. -- Normally-situated neurohy pophysis with expected T1 shortening. The infundibulum is not clearly identified, likely compressed and displaced posteriorly. Smoothly contoured and expanded sella. Normal s ellar contours. Unremarkable sphenoid sinus and cavernous sinus as imaged. BRAIN: No abnormal parenchym al, ependymal, or meningeal enhancement. No areas of abnormally-restricted diffusion in a pattern suggestive of acute or early subacute ischemia. No clinically significant wh ite matter signal abnormalit y. No acute intracranial hemorrhage. No other fluid [...] right maxillary sinus. No acute fracture. No si gnificant systemic marrow si gnal abnormality. No aggressive bony lesions. No significant extracranial soft tissue abnormality. IMAGED SINUSES / MASTOIDS / MISC: No significant sinus mucosal thickening. No significant paranasal sinus fluid. No significant mastoid signal abnormality. 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 Mass effect on the optic chiasm. No acute intracranial abnormality. SL: [id number] 2018-08-22 22:59:00-00:00 Patient Name: LEIGH FRYE [facility] : 1980; Age: 38 years Female MR: [id number] Study: Carotid artery Doppler bilat US 08/22/2018 22:59 CDT Clinical Indication: - TIA. Amaurosis fugax. COMPARISON: None TECHNIQUE: Blackwood-scale, color Doppler an d spectral Doppler of the carotid arteries was performed. Any reported ICA stenoses indirectly reference the distal internal carotid diameter as the denominator for the steno sis measurement, utilizing c onsensus panel criteria. Patient body habitus limits detail. [...] occlusion High, low, or Variable undetectable SL: [id number] 2018-08-22 20:45:00-00:00 EXAM: CT BRAIN WITHOUT CONTRAST [facility] DATE: 08/22/2018 8:45 PM CDT INDICATION: [...] may be performed for complete assessment. SL: [id number] 2018-08-22 16:05:00-00:00 Clinical Indication: - chest pain, dys pnea x 2 days; [facility] Comparison: None FINDINGS: Single AP chest radiograph s hows normal lung volumes without interstitial or airspace opacities, pleural effusions or pneumothorax. The heart size and pulmonary vasculature are normal. The trachea is midline. There are no clinically significant osseous abnormalities noted. IMPRESSION: No chest radiographic evidence of acute cardiopu lmonary disease. SL: PATRICK-OSKAR 2018-08-18 01:53:00-00:00 CT THORAX: PE PROTOCOL [facility] Clinical Indication: - r/o PE. Chest pain. Histo ry of PE. Comparison: CT 08/12/2018 TECHNIQUE: Sequential [...] are no pleural effusions. There is no pneu mothorax. AIRWAY: The central airway is patent. HEART: [...] with thyroid ultrasound can be obtained. SL: MICHAELLE 2018-08-17 23:13:00-00:00 Chest, single view dated 08/18/2018. [facility] HISTORY: Chest pain. Comparison is made to a prior study dated 2018. The heart is normal in size. The cardiomediastinal shadow is stable. The lungs appear clear. The pulmonary vasculature appears normal in caliber. No acute pleural space abnormalities are detected. IMPRESSION: 1. No radiographic evidence of acute cardiopulmo nary disease. SL: 131 2018-08-12 01:43:00-00:00 CTA CHEST WITH CONTRAST [facility] INDICATION: Chest pain, hist ory of PE, [...] 2.5 cm right thyroid no dule. The [employer] (ACR) consensus guidelines for incidental thyroid nodules detected on CT or MRI recommend: Age < 35 years < 1 cm: No further evaluation >= 1 cm: Evaluate with thyroid ultrasound Age >= 35 years < 1.5 cm: No further evaluation >= 1.5 cm: Evaluate with thyroid ultrasound SL:16 2018-08-12 00:41:00-00:00 Clinical Indication: - chest pain, dys pnea x 2 hours [facility] Comparison: None FINDINGS: The AP chest radiograph show s normal lung volumes without interstitial or airspace opacities, pleural effusions or pneumothorax. The cardiomediastinal contours are normal. The t rachea is midline. There are no clinically significant osseous abno rmalities noted. IMPRESSION: No chest radiographic evidence of acute cardiopu lmonary disease. SL:82 2018-07-29 20:50:00-00:00 Procedure: CT Pulmonary Angiogram. [facility] Clinical Indication: Previou s pulmonary emboli, chest [...] or dissection. The superior vena cava is unremar kable. VISUALIZED UPPER ABDOMEN: A lap band is present. OSSEOUS STRUCTURES: There ar e no definite significant osseous abnormalities seen. IMPRESSION: 1. No evidence of pulmonary emboli. 2. Right thyroid nodule, fur ther assessment with thyroid ultrasound may be helpful if indicated clinically. SL:[id number] 2018-07-29 20:50:00-00:00 Clinical Indication: - sore throat [facility] Comparison: None Technique: CT of the neck [...] for complete assessment. IMPRESSION: 1. Mildly prominent bilatera l palatine tonsils, which can be seen with tonsillitis. No associated airway compromise. 2. Negative limited noncontr ast evaluation for peritonsillar abscess formation. 3. A 2.2 cm right thyroid lo be hypodensity, recommend nonemergent thyroid sonogram SL: NASIM 2018-07-29 19:35:00-00:00 Clinical Indication: Chest p ain, shortness of breath.. [facility] Comparison: None FINDINGS: PA and lateral views of the chest have been prov ided. Lungs are clear. Heart size is normal. Central pulmonary vasculat ure appears normal. No effusion. No pneumothorax. No radiographically apparent acute osseous abnor mality. IMPRESSION: 1. No radiographically apparent acute cardiopulm onary process. SL: [id number]
[2022-09-02] MEDS ORDERED: MORPHINE 4 MG/ML SYR ONE ×3 (03:33→13:21)
[2022-09-02] MEDS ORDERED: ONDANSETRON 4 MG/2 ML VIAL ONE ×2 (03:33→13:21)
[2022-09-02 04:07] LABS: Absolute Lymphocytes (CBC) 2.3 K/uL (0.7-4.9); Hematocrit 43.8 % (36.0-45.0); Lymphocytes % 33.9 % (15.3-44.8); MCV 84.3 fL (80-100); MPV 8.1 fL (7.6-11.3)
[2022-09-02 04:25] LABS: Albumin 3.1 g/dL (3.4-5.0); Bilirubin Total 0.3 mg/dL (0.2-1.0); Potassium 3.5 mEq/L (3.5-5.1); Protein, Total 7.7 g/dL (6.4-8.2); Troponin High Sensitivity 4.4 pg/mL (<58.9)
[2022-09-02 06:31] LABS: Specific Gravity > 1.035 (1.005-1.030); Urine Bacteria >50 /HPF (<20); Urine Bilirubin NEGATIVE (Negative); Urine Blood 3+ (OVER) (Negative); Urine Clarity Extremely Turbid (Clear); Urine Color Yellow (Yellow); Urine Glucose NEGATIVE (Negative); Urine Mucus Slight /HPF (None Seen); Urine Protein 1+ (Negative); Urine Urobilinogen Normal (Normal)
[2022-09-02 06:32] LABS: Specific Gravity > 1.035 (1.005-1.030)
[2022-09-02] MEDS ORDERED: METOCLOPRAMIDE 10 MG/2mL INJ ONE (06:48)
[2022-09-02] MEDS ORDERED: DIPHENHYDRAMINE 50 MG/ML VIAL ONE (06:48)
--- NOTE | 2022-09-02 07:57 | RAD REPORT ---
EXAM DESCRIPTION: US - Abdomen Exam Limited - 09/02/2022 7:45 am CLINICAL HISTORY: Abdominal pain. COMPARISON: CT abdomen September 02, 2022 FINDINGS: The gallbladder wall is not thickened. A gallstone is not seen. Moderate gallbladder dist ention The biliary tree is normal caliber. There is increased echoes within the common bile duct IMPRESSION: Moderate gallbladder distention Increased echoes within the common bile duct having the appearance of debris or mass
--- NOTE | 2022-09-02 08:18 | EKG ---
Test Date: 2022-09-02 Test Time: 03:15:38 Account Underwriter: ADAMARIS MEASUREMENT RESULTS: Intervals: Rate: 78 MS: 152 QRSD: 96 QT: 424 QTc: 483 [place]: P: 27 MS: 152 QRS: 29 T: 35 INTERPRETIVE STATEMENTS: Normal sinus rhythm Prolonged QT Abnormal ECG Compared to ECG 09/25/2021 01:33:07 Prolonged QT interval now present Myocardial infarct finding no longer present Electronically Signed On 09-02-22 08:17:18 CDT by Leonel Jimenez
[2022-09-02 08:34] LABS: Urine Bacteria None Seen /HPF (<20); Urine Bilirubin NEGATIVE (Negative); Urine Blood 1+ (Negative); Urine Clarity Clear (Clear); Urine Color Yellow (Yellow); Urine Glucose NEGATIVE (Negative); Urine Mucus Slight /HPF (None Seen); Urine Protein 1+ (Negative); Urine Urobilinogen Normal (Normal)
[2022-09-02 08:37] LABS: Specific Gravity > 1.030 (1.005-1.030)
--- NOTE | 2022-09-02 09:32 | EDPHYS ---
Physician Documentation [facility] Name: Shasta Coronado Age: 42 yrs Sex: Female : 1980 Arrival Date: 09/02/2022 Time: 02:58 Bed 16 Private MD: ED Physician Peña Kang HPI: 09/02 03:48 This 42 yrs old Female presents to ER via EMS with complaints of Bilateral flank pain. rt 03:48 Patient presents to the ED with bilateral flank pain rating to the suprapubic region. rt She has associated nausea, vomiting, diarrhea. The pain waxes and wanes. It is severe in severity. She denies hematemesis, hematochezia. She states that she had chest pain yesterday, has since resolved. Denies other acute complaints at this time. Symptoms are severe in severity, no other aggravating or alleviating factors. Historical: - Allergies: 03:07 Losartan; ha1 03:07 Metformin HCl; ha1 - Home Meds: 03:07 amlodipine oral [Active]; gabapentin oral [Active]; Metoprolol Tartrate Oral [Active]; ha1 - PMHx: 03:07 Atrial Fib; Hypertension; Pneumonia; Pulmonary Embolism; Diabetes mellitus; Brain ha1 Tumor; Myocardial infarction; - PSHx: 03:07 Appendectomy; heart cath; Pituitary Surgery; ha1 - Immunization history:: Adult Immunizations unknown. - Social history:: Smoking status: Patient denies any tobacco usage or history of. - Family history:: not pertinent. ROS: 03:48 Constitutional: Negative for fever, chills, and weight loss, Cardiovascular: Negative rt for chest pain, palpitations, and edema, Respiratory: Negative for shortness of breath, cough, wheezing, and pleuritic chest pain, MS/Extremity: Negative for injury and deformity, Skin: Negative for injury, rash, and discoloration, Neuro: Negative for headache, weakness, numbness, tingling, and seizure, Psych: Negative for depression, anxiety, suicide ideation, homicidal ideation, and hallucinations. 03:48 Abdomen/GI: Positive for abdominal pain, nausea, vomiting, and diarrhea. 03:48 Back: Positive for flank pain, Negative for injury or acute deformity. Exam: 03:48 Constitutional: This is a well developed, well nourished patient who is awake, alert, rt and in no acute distress. Head/Face: Normocephalic, atraumatic. Chest/axilla: Normal chest wall appearance and motion. Nontender with no deformity. No lesions are appreciated. Cardiovascular: Regular rate and rhythm with a normal S1 and S2. No gallops, murmurs, or rubs. Normal PMI, no JVD. No pulse deficits. Respiratory: Lungs have equal breath sounds bilaterally, clear to auscultation and percussion. No rales, rhonchi or wheezes noted. No increased work of breathing, no retractions or nasal flaring. Abdomen/GI: Soft, non-tender, with normal bowel sounds. No distension or tympany. No guarding or rebound. No evidence of tenderness throughout. Skin: Warm, dry with normal turgor. Normal color with no rashes, no lesions, and no evidence of cellulitis. MS/ Extremity: Pulses equal, no cyanosis. Neurovascular intact. Full, normal range of motion. Neuro: Awake and alert, GCS 15, oriented to person, place, time, and situation. Cranial nerves II-XII grossly intact. Motor strength 5/5 in all extremities. Sensory grossly intact. Cerebellar exam normal. Normal gait. Psych: Awake, alert, with orientation to person, place and time. Behavior, mood, and affect are within normal limits. 03:48 ECG was reviewed by the Attending Physician. Vital Signs: 03:02 BP 149 / 98; Pulse 73; Resp 20 S; Temp 98.1; Pulse Ox 96% on R/A; Weight 202.3 kg; ha1 Height 6 ft. 0 in. ; Pain 10/10; 04:00 BP 110 / 51; Pulse 74; Resp 19 S; Pulse Ox 95% on R/A; ha1 05:00 BP 110 / 61; Pulse 73; Resp 16; Pulse Ox 95% ; ha1 06:00 BP 97 / 85; Pulse 75; Resp 19; Pulse Ox 96% ; ha1 07:00 BP 124 / 68; Pulse 93; Resp 16; Pulse Ox 99% on R/A; db 10:14 BP 123 / 68; Pulse 80; Resp 16; Pulse Ox 96% on R/A; db 13:00 BP 136 / 85; Pulse 83; Resp 16; Pulse Ox 95% on R/A; db 03:02 Body Mass Index 60.49 (202.30 kg, 182.88 cm) ha1 03:02 Pain Scale: Adult ha1 MDM: 03:02 Patient medically screened. rt 07:10 ED course: Patient signed out pending reassessment she has a complex medical history bs3 but here for diffuse abdominal pain and back pain worse with movement no urinary symptoms her urinalysis is contaminated difficult to interpret given the number of squamous cells she does not think she has UTI we will repeat will do ultrasound. 07:13 ED course: Elevated LFTs are slightly elevated not consistent with cholestasis she is bs3 at this time the gallbladder likely secondary to her fasting state no visualized gallstones on my interpretation pending official read. 09:29 ED course: Discussed with Dr. Cobos who recommends transfer to [facility] for further bs3 work-up. 09:32 Data reviewed: vital signs, nurses notes. bs3 11:03 ED course: Attempted to transfer to [facility] in [facility] however they rejected due to bs3 capacity will attempt [facility]. 11:19 ED course: D/W Dr. Moe at [facility] who will accept pt. bs3 09/02 03:12 Order name: CBC with Diff; Complete Time: 04:16 rt 09/02 03:12 Order name: CMP; Complete Time: 04:31 rt 09/02 03:12 Order name: Lipase; Complete Time: 04:31 rt 09/02 03:12 Order name: Urinalysis w/ reflexes; Complete Time: 06:35 rt 09/02 03:12 Order name: Troponin High Sensitivity; Complete Time: 04:31 rt 09/02 03:12 Order name: Test, Urine; Complete Time: 06:35 rt 09/02 07:11 Order name: Urinalysis w/ reflexes; Complete Time: 08:58 bs3 09/02 03:12 Order name: CT Abd/Pelvis - IV Contrast Only rt 09/02 03:14 Order name: Abdomen EDMS 09/02 05:59 Order name: US Abdomen Limited; Complete Time: 08:58 rt 09/02 03:12 Order name: EKG; Complete Time: 03:13 rt 09/02 03:15 Order name: EKG Electrocardiogram EDMS 09/02 03:12 Order name: IV Saline Lock; Complete Time: 03:32 rt 09/02 03:12 Order name: Labs collected and sent; Complete Time: 03:32 rt 09/02 03:12 Order name: EKG - Nurse/Tech; Complete Time: 03:32 rt EC:48 Rate is 78 beats/min. Rhythm is regular, Normal Sinus Rhythm with No ectopy. QRS [place] rt is Normal. MS interval is normal. QRS interval is normal. QT interval is normal. No Q waves. T waves are Normal. No ST changes noted. Interpreted by me. Administered Medications: 03:32 Drug: Ondansetron IVP 4 mg Route: IVP; Site: left antecubital; ha1 04:35 Follow up: Response: No adverse reaction ha1 03:32 Drug: morphine IVP or IV 4 mg Route: IVP; Infused Over: 4 mins; Site: left antecubital; ha1 04:00 Follow up: Response: No adverse reaction; Pain is decreased; RASS: Alert and Calm (0) ha1 05:05 Drug: morphine IVP or IV 4 mg Route: IVP; Infused Over: 4 mins; Site: left antecubital; ha1 05:30 Follow up: Response: No adverse reaction; Pain is decreased; RASS: Alert and Calm (0) ha1 06:42 Drug: metoCLOPramide IVP 10 mg Route: IVP; Site: left antecubital; ha1 12:54 Follow up: Response: No adverse reaction db 06:45 Drug: diphenhydrAMINE IVP 25 mg Route: IVP; Site: left antecubital; ha1 12:53 Follow up: Response: No adverse reaction db 13:18 Drug: Ondansetron IVP 4 mg Route: IVP; Site: left antecubital; mb9 14:00 Follow up: Response: No adverse reaction db 13:19 Drug: morphine IVP or IV 4 mg Route: IVP; Infused Over: 4 mins; Site: left antecubital; mb9 14:00 Follow up: Response: No adverse reaction db Disposition Summary: 09/02/22 09:31 Transfer Ordered Reason: Higher level of care bs3 Condition: Stable bs3 Problem: new bs3 Symptoms: have improved bs3 Transfer Location: [facility](09/02/22 11:20) bs3 Accepting Physician: Payal(09/02/22 13:55) mb9 Diagnosis - Other specified diseases of biliary tract bs3 Forms: - Medication Reconciliation Form bs3 - SBAR form bs3 Signatures: Dispatcher [employer] Rose Walker RN RN vg1 Marcia Teixeira RN RN ha1 Peña Kang MD MD bs3 Rafaela Adam RN RN mb9 Lexx Leigh MD MD rt Latosha Weber RN db Corrections: (The following items were deleted from the chart) 11 09:31 [facility] bs3 09:31 [facility] bs3 bs3 13:55 11:20 Payal 3 mb9
--- NOTE | 2022-09-02 09:32 | ER ---
Nurse's Notes [facility] Name: Shasta Coronado Age: 42 yrs Sex: Female : 1980 Arrival Date: 09/02/2022 Time: 02:58 Bed 16 Private MD: Diagnosis: Other specified diseases of biliary tract Presentation: 09/02 03:02 Chief complaint: Patient states: 42 year old female reports severe back pain that ha1 started 24 hours ago. 30 mg of Ketorolac were given IM. Coronavirus screen: Vaccine status:. Ebola Screen: No symptoms or risks identified at this time. Initial Sepsis Screen: Does the patient meet any 2 criteria? No. Patient's initial sepsis screen is negative. Does the patient have a suspected source of infection? No. Patient's initial sepsis screen is negative. Risk Assessment: Do you want to hurt yourself or someone else? Patient reports no desire to harm self or others. Onset of symptoms was September 02, 2022. 03:02 Method Of Arrival: EMS: [facility] ha 03:02 Acuity: DANIEL 3 ha1 Triage Assessment: 03:07 General: Appears uncomfortable, Behavior is cooperative. Pain: Complains of pain in ha1 back Pain does not radiate. Pain currently is 10 out of 10 on a pain scale. Neuro: Level of Consciousness is awake, alert, obeys commands, Oriented to person, place, time, situation. Cardiovascular: Patient's skin is warm and dry. Respiratory: Airway is patent Respiratory effort is even, unlabored, Respiratory pattern is regular, symmetrical. GI: Abdomen is non-distended, obese, Bowel sounds present X 4 quads. : Reports history of kidney stones. Musculoskeletal: Circulation, motion, and sensation intact. Historical: - Allergies: 03:07 Losartan; ha1 03:07 Metformin HCl; ha1 - Home Meds: 03:07 amlodipine oral [Active]; gabapentin oral [Active]; Metoprolol Tartrate Oral [Active]; ha1 - PMHx: 03:07 Atrial Fib; Hypertension; Pneumonia; Pulmonary Embolism; Diabetes mellitus; Brain ha1 Tumor; Myocardial infarction; - PSHx: 03:07 Appendectomy; heart cath; Pituitary Surgery; ha1 - Immunization history:: Adult Immunizations unknown. - Social history:: Smoking status: Patient denies any tobacco usage or history of. - Family history:: not pertinent. Screenin:01 [facility] ED Fall Risk Assessment (Adult) History of falling in the last 3 months, ha1 including since admission No falls in past 3 months (0 pts) Confusion or Disorientation No (0 pts) Intoxicated or Sedated No (0 pts) Impaired Gait No (0 pts) Mobility Assist Device Used No (0 pt) Altered Elimination No (0 pt) Score/Fall Risk Level 0 - 2 = Low Risk Oriented to surroundings, Maintained a safe environment, Educated pt \\T\\ family on fall prevention, incl call for assistance when getting out of bed. Abuse screen: Denies threats or abuse. Denies injuries from another. Nutritional screening: No deficits noted. Tuberculosis screening: No symptoms or risk factors identified. Assessment: 03:01 Reassessment: see triage assessment. ha1 04:00 Reassessment: Patient and/or family updated on plan of care and expected duration. Pain ha1 level reassessed. Patient is alert, oriented x 3, equal unlabored respirations, skin warm/dry/pink. Patient states feeling better. Patient states symptoms have improved. 05:00 Reassessment: Patient and/or family updated on plan of care and expected duration. Pain ha1 level reassessed. Patient is alert, oriented x 3, equal unlabored respirations, skin warm/dry/pink. back from CT. states " the movement made my pain worse." Pain 12/29. Notified Dr. Leigh. 06:00 Reassessment: Patient and/or family updated on plan of care and expected duration. Pain ha1 level reassessed. Patient is alert, oriented x 3, equal unlabored respirations, skin warm/dry/pink. 07:05 Reassessment: Patient appears in no apparent distress at this time. Patient and/or db family updated on plan of care and expected duration. Pain level reassessed. Patient is alert, oriented x 3, equal unlabored respirations, skin warm/dry/pink. General: Appears in no apparent distress. comfortable, Behavior is calm, cooperative. Neuro: Level of Consciousness is awake, alert, obeys commands, Oriented to person, place, time, situation, Speech is normal. Respiratory: Airway is patent Respiratory effort is even, unlabored, Respiratory pattern is regular, symmetrical. 07:39 Reassessment: instructional media services technician is at patient bedside. db 08:16 Reassessment: patient ambulatory to restroom with steady gate. Patient complained of db some nausea initially but felt better after belching. 08:28 Reassessment: Patient appears in no apparent distress at this time. Patient and/or db family updated on plan of care and expected duration. Pain level reassessed. Patient is alert, oriented x 3, equal unlabored respirations, skin warm/dry/pink. 09:30 Reassessment: Patient appears in no apparent distress at this time. Patient and/or db family updated on plan of care and expected duration. Pain level reassessed. Patient is alert, oriented x 3, equal unlabored respirations, skin warm/dry/pink. patient is ambulatory to restroom. 10:27 Reassessment: Patient appears in no apparent distress at this time. Patient and/or db family updated on plan of care and expected duration. Pain level reassessed. Patient is alert, oriented x 3, equal unlabored respirations, skin warm/dry/pink. 12:08 Reassessment: patient ambulatory to restroom. db 12:08 Reassessment: Patient appears in no apparent distress at this time. Patient and/or db family updated on plan of care and expected duration. Pain level reassessed. Patient is alert, oriented x 3, equal unlabored respirations, skin warm/dry/pink. 13:45 Reassessment: Patient appears in no apparent distress at this time. Patient and/or db family updated on plan of care and expected duration. Pain level reassessed. Patient is alert, oriented x 3, equal unlabored respirations, skin warm/dry/pink. patient ambulatory to restroom. 13:45 Reassessment: Patient appears in no apparent distress at this time. Patient and/or db family updated on plan of care and expected duration. Pain level reassessed. Patient is alert, oriented x 3, equal unlabored respirations, skin warm/dry/pink. EMS here for patient transport. Vital Signs: 03:02 BP 149 / 98; Pulse 73; Resp 20 S; Temp 98.1; Pulse Ox 96% on R/A; Weight 202.3 kg; ha1 Height 6 ft. 0 in. ; Pain 10/10; 04:00 BP 110 / 51; Pulse 74; Resp 19 S; Pulse Ox 95% on R/A; ha1 05:00 BP 110 / 61; Pulse 73; Resp 16; Pulse Ox 95% ; ha1 06:00 BP 97 / 85; Pulse 75; Resp 19; Pulse Ox 96% ; ha1 07:00 BP 124 / 68; Pulse 93; Resp 16; Pulse Ox 99% on R/A; db 10:14 BP 123 / 68; Pulse 80; Resp 16; Pulse Ox 96% on R/A; db 13:00 BP 136 / 85; Pulse 83; Resp 16; Pulse Ox 95% on R/A; db 03:02 Body Mass Index 60.49 (202.30 kg, 182.88 cm) ha1 03:02 Pain Scale: Adult ha1 ED Course: 03:01 Patient arrived in ED. ha1 03:01 Patient has correct armband on for positive identification. Placed in gown. Bed in low ha1 position. Call light in reach. Side rails up X 1. 03:02 Marcia Teixeira, DAVID is Primary Nurse. ha1 03:02 Lexx Leigh MD is Attending Physician. rt 03:07 Triage completed. ha1 03:07 Arm band placed on right wrist. ha1 05:13 Abdomen In Process Unspecified. EDMS 07:05 Client placed on continuous cardiac and pulse oximetry monitoring. NIBP monitoring db applied. 07:09 Attending Physician role handed off by Lexx Leigh MD bs3 07:09 Peña Kang MD is Attending Physician. bs3 07:46 Abdomen Limited In Process Unspecified. EDMS 08:25 Urine collected: clean catch specimen, clear. db 09:38 initiated transfer to [facility]. bd 10:32 pt denied at [facility] due to no capacity at this time, per michael paredes. bd 10:36 initiated transfer to [facility]. bd 11:31 pt accepted in transfer to [facility] by dr Cruz,admit approval given by Mimi Lawson, pt going to [address] [place] [address]. 13:00 No provider procedures requiring assistance completed. Patient transferred, IV remains db in place. Administered Medications: 03:32 Drug: Ondansetron IVP 4 mg Route: IVP; Site: left antecubital; ha1 04:35 Follow up: Response: No adverse reaction ha1 03:32 Drug: morphine IVP or IV 4 mg Route: IVP; Infused Over: 4 mins; Site: left antecubital; ha1 04:00 Follow up: Response: No adverse reaction; Pain is decreased; RASS: Alert and Calm (0) ha1 05:05 Drug: morphine IVP or IV 4 mg Route: IVP; Infused Over: 4 mins; Site: left antecubital; ha1 05:30 Follow up: Response: No adverse reaction; Pain is decreased; RASS: Alert and Calm (0) ha1 06:42 Drug: metoCLOPramide IVP 10 mg Route: IVP; Site: left antecubital; ha1 12:54 Follow up: Response: No adverse reaction db 06:45 Drug: diphenhydrAMINE IVP 25 mg Route: IVP; Site: left antecubital; ha1 12:53 Follow up: Response: No adverse reaction db 13:18 Drug: Ondansetron IVP 4 mg Route: IVP; Site: left antecubital; mb9 14:00 Follow up: Response: No adverse reaction db 13:19 Drug: morphine IVP or IV 4 mg Route: IVP; Infused Over: 4 mins; Site: left antecubital; mb9 14:00 Follow up: Response: No adverse reaction db Medication: 13:00 VIS not applicable for this client. db Outcome: 09:31 ER care complete, transfer ordered by . bs3 13:00 Transferred by ground EMS to [facility], Transfer form db completed. X-rays sent w/ patient. 13:00 Condition: stable 13:00 Instructed on the need for transfer. 13:55 Patient left the ED. mb9 Signatures: Dispatcher [employer] EDMS Sabi Ryan Heidy RN RN ha1 Peña Kang MD MD bs3 Latosha Weber RN RN db Rafaela Adam RN RN mb9 Lexx Leigh MD MD rt Corrections: (The following items were deleted from the chart) 07:03 06:00 Pulse 75bpm; Resp 19bpm; Pulse Ox 96%; ha1 ha1
--- NOTE | 2022-09-02 10:02 | RAD REPORT ---
EXAM DESCRIPTION: CT - Abdomen Pelvis W Contrast - 09/02/2022 6:52 am CLINICAL HISTORY: The patient is 42 years old and is Female; ABD PAIN TECHNIQUE: Axial computed tomography images of the abdomen and pelvis with intravenous contrast. S agittal and coronal reformatted images were created and reviewed. This CT exam was performed using one or more of the following dose reduction techniques: automated exposure control, adjustment of t he mA and/or kV according to patient size, and/or use of iterative reconstruction technique. COMPARISON: No relevant prior studies available. FINDINGS: Lung bases: Unremarkable. No mass. No consolidation. ABDOMEN: Liver: Hepatomegaly with diffuse hepatic steatosis. Gallbladder and bile ducts: Gallbladder is distended. No calcified stones. No ductal dilation. Pancreas: Unremarkable. No mass. No ductal dilation. Spleen: Unremarkable. No splenomegaly. Adrenals: Unremarkable. No mass. Kidneys and ureters: Unremarkable. No solid mass. No hydronephrosis. Stomach and bowel: Stomach is distended. No mucosal thickening. PELVIS: Appendix: No findings to suggest acute appendicitis. Bladder: Unremarkable. Reproductive: Unremarkable as visualized. ABDOMEN and PELVIS: Intraperitoneal space: Unremarkable. No free air. No significant fluid collection. Bones/joints: No acute fracture. No dislocation. Soft tissues: Unremarkable. Vasculature: Unremarkable. No abdominal aortic aneurysm. Lymph nodes: Unremarkable. No enlarged lymph nodes. Tubes, lines and devices: Gastric lap band in place. IMPRESSION: No acute finding in the abdomen/pelvis. Electronically signed by: Dave Valdez MD 09/02/2022 5:29 AM CDT Due to temporary technical issues with the PACS/Fluency reporting system, reports are being signed by the in house radiologist without review as a courtesy to ensure prompt reporting. The interpreting r adiologist is fully responsible for the content of the report.
[2022-09-02 14:52] VITALS: TEMP 98.1
[2022-09-02 15:00] VITALS: BP 123/68; O2SAT 96
== END 2022-09-02 13:55 | disposition short-term general hospital (02) ==
LOC: ER 02:58
DX: K83.8 Other specified diseases of biliary tract (principal); I10 Essential (primary) hypertension; I48.91 Unspecified atrial fibrillation; E11.9 Type 2 diabetes mellitus without complications; Z88.8 Allergy status to other drugs, medicaments and biological substances
CPT/HCPCS: 93005; 85025; 81001 ×2; 36415; 81025; 84484; 83690; 80053; 74177; 76705; Q9967; J2765; J1200; J2405 ×2; 96374; 96375; 99285

== ENCOUNTER 2022-09-11 17:55 | Observation (INO) | payer OTHER ==
--- OUTSIDE RECORDS SUMMARY | 2022-09-11 18:51 | XMS REPORT | Continuity of Care Document ---
:1980 Author Organization [facility] t Address [address] [facility]. [address] [place] [address] Support Name Relationship Address Phone Blanca Frye Brother [address] [place] [address] Cassy Frye Child [address] [place] [address] Gunjan Frye Unavailable Unavailable Rosa Frye Mother Unavailable Unavailable Blanca Frye Sibling [address] [phone] [place] [address] Tim Blanca Frye Sibling [address] [place] [address] TIM CAO Primary Care Physician [address] [place] [address] JACKSON MCFARLANE MD Emergency Provider [address] [place] [address] BLANCA FRYE Next of Kin [address] [place] [address] LINNETTE VELASCO, LALITHA Elder Emergency Provider [address] [facility] [address] [place] [address] MD LAYA HAWKINS MD A Emergency Provider [address] [facility] [phone] [place] [address] MD ARISTEO WOODS MD Emergency Provider [address] [facility] [place] [address] OTHER, ENTER NAME IN Primary Care Physician Unavailable Unav ailable NOTES ROMULO MIGUEL Other Provider Unavailable Unavailable STEFFEN MORALES MD Emergency Provider [address] [place] [address] PHYSICIAN, NO Primary Care Physician Unavailable Unavailab porter TYRESE KIMBERLYAMNA Next of Kin [address] [place] [address] NEGRA BURNS MD Admitting Provider [address] [place] [address] LINA FIERRO Next of Kin [address] [place] [address] ERMIAS POTTER Primary Care Physician [address] [place] [address] MD JACKSON MCFARLANE Emergency Provider [address] [place] [address] BLANCA FRYE Sibling [address] [place] [address] BLANCA FRYE(MPOA) Sibling [address] [place] [address] MD [facility] Admitting Provider [address] [phone] [place] [address] MD VALENTINO PHOENIX Emergency Provider [address] [phone] [place] [address] MD FARSHAD SMITH JR Admitting Provider [address] [place] [address] DO TJ PARISI Emergency Provider [address] [facility] TJ.S.S [email or web address] [address] MD ESTELA BARAKAT Emergency Provider [facility] [address] MD NENA ERAZO Emergency Provider [address] [phone] [place] [address] LEAH FRYE Unavailable [address] [phone] [place] [address] BLANCA FRYE TIM G [address] [place] [address] Sury Lawson Child Unavailable [phone] Care Team Providers Name Role Phone No , Pcp [facility] Primary Care Physician Unavailable FERNANDEZ CAMPBELL Attending Clinician Unavailable Chelsie Arriaga RN Attending Clinician Unavailable JARON CRUZ Attending Clinician Unavailable JARON CRUZ Attending Clinician Unavailable FAROOQ AVILEZ Attending Clinician Unavailable Link Ruth Attending Clinician Farooq Avilez MD Attending Clinician Dae Mcginnis MD Attending Clinician CIARA RAMIREZ Attending Clinician Unavailable Vicki VELASCO, Ciara Ash Attending Clinician GÓMEZFELIX Attending Clinician Unavailable MITCHELL JACOBS Attending Clinician Unavailable Cabrera Pinto Attending Clinician Marnie Grimm MD Attending Clinician Mitchell Jacobs MD Attending Clinician Link GERMAN Attending Clinician Unavailable ROSA RIEC Attending Clinician Unavailable Freda CARRANZA, Rosa Gunderson Attending Clinician Lisa Schulte DO Attending Clinician John James DO Attending Clinician Mana GONZALES, Antonio Helton Attending Clinician Aziza VELASCO, Jeff Gavin Attending Clinician [phone] Macarena VELASCO, Olivia Khan Attending Clinician [phone] Rosa Llamas Attending Clinician Unavailable Ne He S Attending Clinician Viral Olivares MD Attending Clinician Manuela Neely MD Attending Clinician [phone] MANUELA NEELY Attending Clinician Unavailable Tabby Atkins RN Attending Clinician Jessica Rutledge Attending Clinician TABBY MOODY Attending Clinician Unavailable Marilyn Torres Attending Clinician Kevin Fong Attending Clinician José Miguel Ramsay MD Attending Clinician Bryanna VELASCO, Gianluca Nelson Attending Clinician Doctor Unassigned, B[place]ond Attending Clinician Unavailable Bella VELASCO, Janak Attending Clinician Alvino VELASCO, Fernandez Caicedo Attending Clinician JEFF ERVIN Attending Clinician Unavailable KWABENA YEUNG Attending Clinician Unavailable Ap VELASCO, Kwabena Attending Clinician William Attending Clinician Unavailable Cherie Finley Attending Clinician Jacki Romero Attending Clinician Beck Saavedra Attending Clinician CICI MCCRARY Attending Clinician Unavailable GIANLUCA ABURTO Admitting Clinician Unavailable JARON CRUZ Admitting Clinician Unavailable DAE MCGINNIS Admitting Clinician Unavailable Dae Mcginnis MD Admitting Clinician CIARA RAMIREZ Admitting Clinician Unavailable ENZO Admitting Clinician Unavailable MITCHELL JACOBS Admitting Clinician Unavailable Mitchell Jacobs MD Admitting Clinician Link GERMAN Admitting Clinician Unavailable ROSA RICE Admitting Clinician Unavailable Macarena VELASCO, Olivia Khan Admitting Clinician [phone] Rosa Llamas Admitting Clinician Unavailable NE RUBIN Admitting Clinician Unavailable Gianluca Aburto MD Admitting Clinician JEFF ERVIN Admitting Clinician Unavailable Jeff Ervin MD Admitting Clinician [phone] William Admitting Clinician Unavailable Beck Saavedra Admitting Clinician LILIA MELTON Admitting Clinician Unavail able Payers Payer Name Policy Type Policy Number Effective Date Expiration Date S [facility] EMERGENCY [id number] 2016 ADMIT 00:00:00 [place] [id number] 2020-07-20 WOMEN 00:00:00 MEDICAID SSI PENDING 2020-04-05 PENDING 00:00:00 [facility] [id number] 2019-05-21 00:00:00 [facility] [id number] 2014-03-22 CHOICE MEDICAID 00:00:00 LO [id number] PETTIGREW [id number] 2019-05-20 [employer] 00:00:00 00:00:00 Problems Condition Condition Condition Status Onset Resolution Last Treating Co mments Source Name Details Category Date Date Treatment Clinician Date Right Right Disease Active Univers upper upper 6-14 ity of quadrant quadrant 00:00: [place] abdominal abdominal 00 Medi carol pain pain Branch Abdominal Abdominal Disease Active Uni vers pain pain 6-14 ity of 00:00: [place] 00 Medical Branch Persistent Persistent Disease Active U nivers atrial atrial 5-09 [place]y of fibrill[place] fibr[place] Elevated Elevated Disease Active [...] Disease Active Univers embolus of embolus of 7-31 [place] of pulmonary pulmonary [place] artery artery 00 [place] Pulmonary Pulmonary Disease Active Uni vers embolism embolism - ity of 00:00: [place] 00 Medical Branch [...] Active 2018-08-31 Memoria AND CHEST AND CHEST 6 22:01:00 l PAIN PAIN 00:00: Otilio Active 00 08/22/2018 [facility] CHEST PAIN CHEST Diagnosis Active 2018-08-23 [facility]oria PAIN 08-17 12:05:00 l Active 00:00: Otilio 08/17/2018 [facility] CP CP Active Diagnosis Active 2018-08-23 Memoria 08/12/2018 5-24 12:05:00 l MH 00:00: Otilio [place] 00 FEVER SORE FEVER Diagnosis Active 2018-07-29 [facility] THROAT SORE - 23:13:00 l THROAT 00:00: Otilio Active 00 07/29/2018 [facility] ACUTE ACUTE Diagnosis Active 2018-08-01 Mem oria TONSILLITI TONSILLITI - 10:19:00 l S, ACUTE S, ACUTE 00:00: Jorge wright CHEST PAIN CHEST PAIN 00 Active 07/29/2018 [facility] Hyperlipid Hyperlipid Disease Rec[facility]re [facility] 00[facility] Morbid Morbid Disease Recurre [facility] obesity obesity nce [facility] due to due to 00:00: Medical excess excess 00 Center calories calories Hypertensi Hypertensi Disease Recurre [facility] 00:00: Medical 00 [place] Acute Acute Disease Active [facility] right right [facility] flank pain flank pain 00:00: Me dical 00 [place] Ureteropel Ureteropel Disease Active [facility] paul[facility] paulino [facility]14 [facility] junction junction 00:00: Medica l (UPJ) (UPJ) 00 [place] obstructio obstructio n n 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 Jorge n (disorder) (disorder) Resolved Problem 08/27/2018 [facility] CHEST CHEST Diagnosis Active 2018-08-01 [facility] oria PAIN, PAIN, 10:19:00 l UNSPECIFIE UNSPECIFIE He rmann D D Active [facility] ACUTE ACUTE Diagnosis Active 2018-08-01 Oh moria TONSILLITI TONSILLITI 10:19:00 l S, S, Otilio UNSPECIFIE UNSPECIFIE D D Active [facility] HEADACHE HEADACHE Diagnosis Active 2018-08-31 Memoria Active 22:01:00 l Ambreen Yañez History of Past Illness Condition Condition Condition Status Onset Resolution Last Treating Co mments Source Name Details Category Date Date Treatment Clinician Date Chest Chest Problem 2018-08-20 2018-08-20 M emoria pain, pain, 08-18 23:48:49 23:48:49 l unspecifie unspecifie 17:00: He rmann d d 00 08/18/2018 08/20/2018 [facility] Pneumonia, Pneumonia Problem 2018-08-20 2018-08-20 Memoria unspecifie , 08-18 23:48:49 23:48:49 l d organism unspecifie 17:00: He rmann d organism 00 08/18/2018 08/20/2018 [facility] Diarrhea, Diarrhea, Problem 2018-2018-08-20 2018-08-20 Memoria unspecifie unspecifie 08-18 23:48:49 23:48:49 l d d 17:00: [place] 08/18/201808/20/2018 [facility] Nontoxic Nontoxic Problem 2018-2018-08-14 2018-08-14 Viola single single 08-12 23:33:07 23:33:07 l thyroid thyroid 17:00: Otilio nodule nodule 00 08/12/2018 08/14/2018 [facility] Esophagiti Esophagit Problem 2018-2018-08-14 2018-08-14 Viola maloney is, 08-12 23:33:07 23:33:07 l unspecifie unspecifie 17:00: He rmann d d 08/12/2018 08/14/2018 [facility] Allergies, Adverse Reactions, Alerts Allergy Allergy Status Severity Reaction(s) Onset Inactive Treating Comm ents Source Name Type Date Date Clinician [facility] DA Active U DIZZINESS, [facility] n BLURRED 3-12 [place] VISION, 00:00: d SWEATING, 00 Medical DIARRHEA [facility] DA Active U [facility] n 3-12 [place] 00:00: d [facility] High Diarrhea 2020-0 Univer s N INGREDI 9-15 ity of 00:00: [place] 00 Medical Branch Metformi Propensi Active Diarrhea 2020-0 Univ ers n ty to 9-15 ity of adverse 00:00: [place] reaction 00 Medical s to Branch drug Metformi Propensi Active Diarrhea 2020-0 Univ ers n ty to 9-15 ity of adverse 00:00: [place] reaction 00 Medical s Branch LOSARTAN DRUG Active High Dizziness 2020-0 Unive rs INGREDI 9-14 ity of 00:00: [place] 00 Medical Branch Losartan Propensi Active Dizziness 2020-0 Blurry Uni vers ty to 9-14 vision, ity of adverse 00:00: dizzy [place] reaction 00 Medical s to Branch drug Losartan Propensi Active Dizziness 2020-0 Uni vers ty to 9-14 ity of adverse 00:00: [place] reaction 00 Medical s [place] No Known DA Active U [facility] Allergie 08-25 [place] s 00:00: d 00 [facility] No Known DA Active U [facility] Allergie 08-25 [place] [facility] 00:00: d 00 [facility] LOSARTAN Allergy Active [facility] Losartan Propensi Active Dizzy and [facility] ty to 7-14 [facility] adverse 00:00: Medical reaction 00 Center s MAGNESIU DRUG Active Hives 2010- Univers M INGREDI 2- ity of 00:00: [place] 00 Medical Branch Magnesiu Propensi Active Hives 2010- Univer s m ty to 219 ity of adverse 00:00: [place] reaction 00 Medical s Branch NO KNOWN Drug Active Univers ALLERGIE Class ity of S [place] Medical Branch Social History Social Habit Start Date Stop Date Quantity Comments Source History SDOH [facility] Alcohol Frequency [facility] History SDOH [facility] Alcohol Std Drinks Medica l Center History SDOH [facility] Alcohol Binge Medical Zo[address] ter History SDOH Social Unive rsity of Connections Get [place] Med ical Together Branch History SDOH Social Unive rsity of Connections [facility] Medical Branch History SDOH Social Unive rsity of Connections [place] Medical Membership Branch History SDOH Social Unive rsity of Connections [place] Medical Meetings Branch History of tobacco Passive smoker Un iversity of use [place] [facility] History SDOH Social 2022-09-03 2022-09-03 5 Unive rsity of Connections Phone 00:00:00 00:00:00 [place] M edical Branch History SDOH Social 2022-09-03 2022-09-03 7 Unive rsity of Connections Living 00:00:00 00:00:00 [place] Medical [facility] History SDOH 2022-09-03 2022-09-03 3 University o f Physical Activity 00:00:00 00:00:00 [place] M edical DPW Branch History SDOH 2022-09-03 2022-09-03 1 University o f Physical Activity 00:00:00 00:00:00 [place] M edical MPS Branch History SDOH 2022-09-03 2022-09-03 1 University o f Housing Unable to 00:00:00 00:00:00 [place] M edical Pay Branch History SDOH 2022-09-03 2022-09-03 2 University o f Housing Places 00:00:00 00:00:00 [place] Medi carol Lived Branch History SDOH 2022-09-03 2022-09-03 2 University o f Financial 00:00:00 00:00:00 [place] [facility] History SDOH Food 2022-09-03 2022-09-03 2 Univers ity of Worry 00:00:00 00:00:00 [place] [facility] History SDOH Food 2022-09-03 2022-09-03 2 Univers ity of Scarcity 00:00:00 00:00:00 [place] Medical [facility] History SDOH 2022-09-03 2022-09-03 2 University o f Transport Med 00:00:00 00:00:00 [place] Medic al Branch History SDOH 2022-09-03 2022-09-03 2 University o f Transport Non-Med 00:00:00 00:00:00 [facility] edical Branch Tobacco use and 2022-09-02 2022-09-02 User of Universit y of exposure 00:00:00 00:00:00 smokeless [facility] tobacco Branch Cigarette 2022-09-02 2022-09-02 University of pack-years 00:00:00 00:00:00 [place] [facility] Branch History SDOH 2022-07-28 2022-07-28 2 University o f Housing Homeless 00:00:00 00:00:00 [facility] dical Last Year Branch Exposure to 2022-07-17 2022-07-27 Not sure University of SARS-CoV-2 (event) 00:00:00 18:04:00 [facility] Branch Education 2022-07-27 2022-07-27 13 University of 00:00:00 00:00:00 [facility] Branch Cigarettes smoked 2019-12-26 2019-12-26 Univers ity of current (pack per 00:00:00 00:00:00 [place] [facility] ) - Reported Branch Alcohol intake 2019-12-24 2019-12-24 [facility] (finding) Social History 2018-07-30 2018-07-30 [facility] 10:57:34 10:57:34 Tobacco Comment 2016-10-02 2016-10-02 "stress smoker" [facility] 00:[facility]00 [facility] Center Alcohol Comment 2016-10-02 2016-10-[address] [facility] [facility] 00:[facility]00 [facility] Sex Assigned At [address] [facility] 00:00[facility]00 00[facility]00 [facility] Center Smoking Status Start Date Stop Date Source Occasional tobacco 2022-09-02 00:00:00 [facility] [place] smoker Medical Branch Ex-smoker 2022-07-27 00:00:00 2022-07-27 University o f [place] 00:00:00 Medical Branch Current every day smoker 2020-07-25 00:00:00 Uni versity of [facility] Light tobacco smoker 2016-10-02 00:00:00 [facility] Medications Ordered Filled Start Stop Current Ordering Indication Dosage Frequency Signature Comments Components Source Medication Medication Date Date Medication? Clinician (SIG) Name Name gabapentin 2022-0 Yes 600mg Take 6 Univ ers 100 mg 6-16 capsules ity of capsule 12:19: by mouth [place] 07 in the Medical morning Branch and 6 capsules at noon and 6 capsules in the evening. traZODone 3-0 Yes 50mg Take 1 Univer s 50 mg 6-16 tablet by ity of tablet 12:19: mouth at [place] bedtime. Medical Branch atorvastati 3-0 Yes 40mg Take 1 Univ ers n 40 mg 6-16 tablet by ity of tablet 12:19: mouth at [place] [address] bedtime. Medical Branch dapaglifloz 2022-0 Yes 10mg Take 1 Univ ers in 6-16 tablet by ity of (FARXIGA) 12:19: [place] 10 mg 07 the Medical tablet morning. Branch SITagliptin 3-0 Yes 100mg Take 1 Uni vers 100 mg 6-16 tablet by ity of tablet 12:19: mouth in [place] 07 the Medical morning. Branch glipiZIDE 3-0 Yes 10mg Take 1 Univer s XL 10 mg 24 6-16 tablet by ity of hr tablet 12:19: [place] 07 the Medical morning Branch and 1 tablet in the evening. hydrOXYzine 3-0 Yes 50mg Take 1 Univ ers 50 mg 6-16 tablet by ity of tablet 12:19: mouth 3 07 (three) Medical times Branch daily as needed for Anxiety. amLODIPine 3-0 Yes 10mg Take 1 Unive rs 10 mg 6-16 tablet by ity of tablet 12:19: mouth in [place] 07 the Medical morning. Branch metoprolol 3-0 Yes 50mg Take 1 Unive rs succinate 6-16 tablet by ity o f XL 50 mg 24 12:19: [place] hr tablet 07 the Medical morning. Branch ergocalcife 2022-0 Yes 5000[iU Take 5,000 Univers rol, 6-16 ]/d Int'l ity of vitamin D2, 12:19: Units/day [place] (VITAMIN D 07 by mouth. Medi carol ORAL) Branch semaglutide 2022-0 Yes .5mg inject 0.5 Univers (OZEMPIC) 6-16 mg under ity of 0.25 mg or 12:19: the skin Jorge as 0.5 mg(2 07 weekly. Medical mg/1.5 mL) Next dose Bran ch PnIj due Wednesday07/28/22 gabapentin 3-0 Yes 600mg Take 6 Univ ers 100 mg 6-16 capsules ity of capsule 12:19: by mouth 07 in the Medical morning Branch and 6 capsules at noon and 6 capsules in the evening. traZODone 2022-0 Yes 50mg Take 1 Univer s 50 mg 6-16 tablet by ity of tablet 12:19: mouth at [place] bedtime. Medical Branch atorvastati 2022-0 Yes 40mg Take 1 Univ ers n 40 mg 6-16 tablet by ity of tablet 12:19: mouth at [place] 07 bedtime. Medical Branch dapaglifloz 2022-0 Yes 10mg Take 1 Univ ers in 6-16 tablet by ity of (FARXIGA) 12:19: [place] 10 mg 07 the Medical tablet morning. Branch SITagliptin 2022-0 Yes 100mg Take 1 Uni vers 100 mg 6-16 tablet by ity of tablet 12:19: mouth in [place] 07 the Medical morning. Branch glipiZIDE 2022-0 Yes 10mg Take 1 Univer s XL 10 mg 24 6-16 tablet by ity of hr tablet 12:19: mouth [place] 07 the Medical morning Branch and 1 tablet in the evening. hydrOXYzine 3-0 Yes 50mg Take 1 Univ ers 50 mg 6-16 tablet by ity of tablet 12:19: mouth 3 07 (three) Medical times Branch daily as needed for Anxiety. amLODIPine 3-0 Yes 10mg Take 1 Unive rs 10 mg 6-16 tablet by ity of tablet 12:19: mouth in [place] 07 the Medical morning. Branch metoprolol 3-0 Yes 50mg Take 1 Unive rs succinate 6-16 tablet by ity o f XL 50 mg 24 12:19: [place] hr tablet 07 the Medical morning. Branch ergocalcife Yes 5000[iU Take 5,000 Univers rol, 09-04 ]/d Int'l ity of vitamin D2, 12:19: Units/day [place] (VITAMIN D 07 by mouth. Medi carol ORAL) Branch semaglutide Yes .5mg inject 0.5 Univers (OZEMPIC) 6-16 mg under ity of 0.25 mg or 12:19: the skin Jorge as 0.5 mg(2 07 weekly. Medical mg/1.5 mL) Next dose Bran ch PnIj due Wednesday07/28/22 spironolact 2022- No 1{tbl} Take 1 U nivers one-hydroch 09-04 tablet by it y of lorothiazid 07:17: 00:00 mouth in [place] e 25-25 mg 46 :00 the Medical per tablet morning. Bran h morpHINE (2 2022- Yes 4mg 4 mg, Slow Univers mg/mL) 09-04 IV Push, ity of injection 4 00:44: 00:43 Q4HPRN, [place] mg 33 :33 Starting Medical on [place] Branch 09/03/22 at 1944, Until 09/05/22 at 1943, Routine, Pain (scale 7-10) proMETHazin 2022- Yes [id number] 25mg Take 1 Univers e 25 mg 09-04-24 tablet by ity of tablet 00:00: 04:59 mouth [place] 00 :00 every 6 Medical (six) Branch hours as needed for Nausea and Vomiting (N/V) for up to 7 days. proMETHazin 2022- Yes [id number] 25mg Take 1 Univers e 25 mg -04 09-24 tablet by ity of tablet 00:00: 04:59 mouth [place] 00 :00 every 6 Medical (six) Branch hours as needed for Nausea and Vomiting (N/V) for up to 7 days. dicyclomine 2022- Yes [id number] 10mg Take 1 Univers 10 mg 09-04 capsule by ity of capsule 00:00: 04:59 mouth 4 [place] 00 :00 (four) Medical times Branch daily as needed for Abdominal pain for up to 5 days. dicyclomine 2022- Yes [id number] 10mg Take 1 Univers 10 mg 09-04 capsule by ity of capsule 00:00: 04:59 mouth 4 [place] 00 :00 (four) Medical times Branch daily as needed for Abdominal pain for up to 5 days. ondansetron 2022- No [id number] 4mg Take 1 Univers 4 mg tablet 09-04 tablet by it y of 00:00: 00:00 mouth [place] 00 :00 every 8 Medical (eight) Branch hours as needed for Nausea and Vomiting (N/V) for up to 7 days. gadobenate 2022- No [id number] .2mL/kg 39.92 mL Univers dimeglumine 09-03 (0.2 mL/kg i ty of (MULTIHANCE 20:30: 20:30 ?199.6 Jorge as -20 mL) 00 :00 kg), Medical injection Intravenou Bran ch 39.92 mL s, ONCE, 1 dose, On [facility] 09/03/22 at 1530, Routine metoprolol Yes 50mg 50 mg, Unive rs succinate 6-15 Oral, ity of XL (TOPROL 14:00: DAILY, [place] XL) tablet 00 First dose Med ical 50 mg on [facility] Branch 09/03/22 at 0900, Until Discontinu ed, Routine docusate Yes 100mg 100 mg, Unive rs (COLACE) 6-15 Oral, ity of capsule 100 14:00: DAILY, [place] mg 00 First dose Medical on [facility] Branch 09/03/22 at 0900, Until Discontinu ed, Routine dicyclomine Yes 10mg 10 mg, Univ ers (BENTYL) 6-15 Oral, ity of capsule 10 13:41: QIDPRN, [place] mg 40 Starting Medical on [facility] Branch 09/03/22 at 0841, Until Discontinu ed, Routine, Abdominal pain heparin Yes 5000U 5,000 Univers (porcine) 6-15 Units, ity of injection 03:00: Subcutaneo [place] 5,000 Units 00 us, Q8H, Medi carol First dose Branch on Wed09/02/22 at 2200, Until Discontinu ed, Routine traZODone 0 Yes 50mg 50 mg, Univer s (DESYREL) 6-15 Oral, QHS, ity of tablet 50 02:00: First dose [place] mg 00 on Wed Medical 09/02/22 at Branch 2100, Until Discontinu ed, Routine atorvastati 0 Yes 40mg 40 mg, Univ ers n (LIPITOR) 6-15 Oral, QHS, it y of tablet 40 02:00: First dose [place] mg 00 on Wed Medical 09/02/22 at Branch 2100, Until Discontinu ed, Routine gabapentin 0 Yes 600mg 600 mg, Uni vers (NEURONTIN) 6-15 Oral, TID, it y of capsule 600 01:00: First dose [place] mg 00 on Wed09/02/22 at Branch 2000, Until Discontinu ed, Routine Sliding 0 Yes Subcutaneo Univ ers Scale 6-14 us, TID ity of Insulin - 22:00: MEALS+HS, [place] as Lispro 00 First dose Medical (HumaLOG) on Wed09/02/22 at 1700, Until Discontinu ed, Routine proMETHazin 0 Yes 25mg 25 mg, Univ ers e 614 Intramuscu ity of (PHENERGAN) 21:15: lar, [place] injection 55 Q4HPRN, Medical 25 mg Starting Branch on Wed09/02/22 at 1615, Until Discontinu ed, Routine, Nausea and Vomiting (N/V) hydrOXYzine 0 Yes 50mg 50 mg, Univ ers (ATARAX) 14 Oral, ity of tablet 50 21:11: QHSPRN, [place] mg 48 Starting Medical on Wed09/02/22 at 1611, Until Discontinu ed, Routine, Anxiety ondansetron 0 2022- No 4mg 4 mg, Slow Univers (ZOFRAN 09-0214 IV Push, ity of (PF)) 20:37: 21:16 Q6HPRN, [place] injection 4 04 :39 Starting Medi carol mg on Wed09/02/22 at 1537, Until Wed09/02/22 at 1616, Routine, Nausea and Vomiting (N/V) morpHINE (2 2022-2022- No 4mg 4 mg, Slow Univers mg/mL) 09-02 IV Push, ity of injection 4 20:36: 20:35 Q4HPRN, [place] mg 59 :59 Starting Medical on Wed Branch 09/02/22 at 1536, Until [place] 09/03/22 at 1535, Routine, Pain (scale 7-10) HYDROcodone 2022- Yes 1{tbl} 1 tablet, Univers -acetaminop 09-02 Oral, ity of hen (NORCO 20:36: 20:35 Q6HPRN, [place] as 5) 5-325 mg 54 :54 Starting Medi carol tablet 1 on Wed Branch tablet 09/02/22 at 1536, Until Wed09/04/22 at 1535, Routine, Pain (scale 4-6) acetaminoph Yes 650mg 650 mg, Un rosanna en 09-02 Oral, ity of (TYLENOL) 20:36: Q6HPRN, [place] tablet 650 52 Starting Medic al mg on Wed Branch 09/02/22 at 1536, Until Discontinu ed, Routine, Pain (scale 1-3) dextrose Yes 250mL 250 mL, IV Un rosanna 10% (D10W) 09-02 Infusion, ity of bolus 20:35: PRN - SEE [place] infusion 28 INSTRUCTIO Medic al 250 mL NS, Branch Administer over 60 Minutes, Other, If blood glucose is < or = 70 mg/dL and patient is unable to swallow or has mental status changes, Starting on Wed09/02/22 at 1535
If blood glucose is < or = [...] glucose is < 80 mg/dL, repeat.
glucagon Yes 1mg 1 mg, Univers (GLUCAGEN 09-02 Intramuscu ity of DIAGNOSTIC 20:35: [place], [place]N, [place] KIT) 25 Starting Medical injection 1 on Wed Branch mg 09/02/22 at 1535, Until Discontinu ed, MADDIE, Blood Glucose < or = 70 mg/dL and patient is NPO, unable to swallow or has mental changes. metoprolol 2022-0 Yes 25mg 25 mg, Unive rs succinate 5-10 Oral, QHS, ity of XL (TOPROL 02:00: First dose [place] XL) tablet 00 on Wed 25 mg 07/28/22 at Branch 2100, Until Discontinu ed, Routine atorvastati 0 Yes 40mg 40 mg, Univ ers n (LIPITOR) 5-10 Oral, QHS, it y of tablet 40 02:00: First dose [place] mg 00 on Wed Medical 07/28/22 at Branch 2100, Until Discontinu ed, Routine sulfur 2022- No [id number] 5mL 5 mL, Univ ers hexafluorid 07-28 05-09 Intravenou i ty of e microsphr 20:30: 20:30 s, ONCE, 1 [place] (LUMASON) 00 :00 dose, On Medica l injection Wed07/28/22 Br anch mL at 1530, Routine
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 traZODone 2022-0 Yes 50mg Take 1 Univer s 50 mg 5-09 tablet by ity of tablet 18:19: mouth at [place] 24 bedtime. Medical Branch atorvastati 2022-0 Yes 40mg Take 1 Univ ers n 40 mg 5-09 tablet by ity of tablet 18:19: mouth at [place] 24 bedtime. Medical Branch dapaglifloz 2022-0 Yes 10mg Take 1 Univ ers in 5-09 tablet by ity of (FARXIGA) 18:19: mouth in [facility] s 10 mg 24 the Medical tablet morning. Branch SITagliptin 2022-0 Yes 100mg Take 1 Uni vers 100 mg 5-09 tablet by ity of tablet 18:19: mouth in [place] 24 the Medical morning. Branch glipiZIDE 2022-0 Yes 10mg Take 1 Univer s XL 10 mg 24 5-09 tablet by ity of hr tablet 18:19: mouth in [place] 24 the Medical morning Branch and 1 tablet in the evening. hydrOXYzine 2022-0 Yes 50mg Take 1 Univ ers 50 mg 5-09 tablet by ity of tablet 18:19: mouth 3 [place] 24 (three) Medical times Branch daily as needed for Anxiety. amLODIPine 2022-0 Yes 10mg Take 1 Unive rs 10 mg 5-09 tablet by ity of tablet 18:19: mouth in [place] 24 the Medical morning. Branch metoprolol 2022-0 Yes 50mg Take 1 Unive rs succinate 5-09 tablet by ity o f XL 50 mg 24 18:19: mouth in [place] hr tablet 24 the Medical morning. Branch ergocalcife 2022-0 Yes 5000[iU Take 5,000 Univers rol, - ]/d Int'l ity of vitamin D2, 18:19: [...] [place] 24 the Medical morning. Branch glipiZIDE 2022-0 Yes 10mg Take 1 Univer s XL 10 mg 24 5-09 tablet by ity of hr tablet 18:19: mouth [place] 24 the Medical morning Branch and 1 tablet in the evening. hydrOXYzine 2022-0 Yes 50mg Take 1 Univ ers 50 mg 5-09 tablet by ity of tablet 18:19: mouth 3 [place] 24 (three) Medical times Branch daily as needed for Anxiety. amLODIPine 2022-0 Yes 10mg Take 1 Unive rs 10 mg 5-09 tablet by ity of tablet 18:19: mouth in [place] 24 the Medical morning. Branch metoprolol 2022-0 Yes 50mg Take 1 Unive rs succinate 5-09 tablet by ity o f XL 50 mg 24 18:19: mouth in [place] hr tablet 24 the Medical morning. Branch ergocalcife 2022-0 Yes 5000[iU Take 5,000 Univers rol, 07-28 [...] Medical per tablet morning. Branc h hydroCHLORO 2022-0 Yes 25mg 25 mg, Univ ers thiazide 5-09 Oral, ity of (ESIDRIX) 14:00: DAILY, [place] tablet 25 00 First dose Medi carol mg on Count Includes [facility] Branch 07/28/22 at 0900, Until Discontinu ed, Routine spironolact 2022-0 Yes 25mg 25 mg, Univ ers one 07-28 Oral, ity of (ALDACTONE) 14:00: DAILY, [place] tablet 25 00 First dose Medi carol mg on Count Includes [facility] Branch 07/28/22 at 0900, Until Discontinu ed, Routine metoprolol 2022-0 Yes 50mg 50 mg, Unive rs succinate 07-28 Oral, ity of XL (TOPROL 14:00: DAILY, [place] XL) tablet 00 First dose Med ical 50 mg on Count Includes [facility] Branch 07/28/22 at 0900, Until Discontinu ed, Routine dapaglifloz 2022-0 Yes 10mg 10 mg, Univ ers in 07-28 Oral, ity of (FARXIGA) 14:00: DAILY, [place] tablet 10 00 First dose Medi carol mg on [facility] 07/28/22 at 0900, Until Discontinu ed, Routine
Is this a home medication ? Yes
Has this patient brought their own medication ? No
Anandr melvin will dispense the medication from inpatient. [...] [place] mg 00 First dose Medical on [facility] 07/28/22 at 0900, Until Discontinu ed, Routine glipiZIDE 2022-0 Yes 10mg 10 mg, Univer s XL 07-28 Oral, BID, ity of (GLUCOTROL 13:00: First dose [place] XL) tablet 00 on Wed Medical 10 mg 07/28/22 at Branch 0800, Until [...] 12:30: First dose [place] ular 00 on Wed [facility] 07/28/22 at Branch 0730, Until Discontinu ed, Routine ketorolac 0 Yes 15mg 15 mg, Univer s (TORADOL) 07-28 Slow IV ity of injection 05:56: Push, [place] 15 mg 54 Q6HPRN, Medical Starting Branch on Wed07/28/22 at 0056, Until Discontinu ed, Routine, Pain (scale 7-10) traZODone Yes 50mg 50 mg, Univer s (DESYREL) 07-28 Oral, QHS, ity of tablet 50 05:15: First dose [place] mg 00 on Wed [facility] 07/28/22 at Branch 0015, Until Discontinu ed, Routine gabapentin 0 Yes 600mg 600 mg, Uni vers (NEURONTIN) 07-28 Oral, TID, it y of capsule 600 05:15: First dose [place] mg 00 on Wed [facility] 07/28/22 at Branch 0015, Until Discontinu ed, Routine hydrOXYzine 0 Yes 50mg 50 mg, Univ ers (ATARAX) 07-28 Oral, ity of tablet 50 05:11: TIDPRN, [place] mg 30 Starting Medical on Wed [place] 07/28/22 at 0011, Until Discontinu ed, Routine, Anxiety glucagon Yes 1mg 1 mg, Univers (GLUCAGEN 07-28 Intramuscu ity of DIAGNOSTIC 02:20: lar, PRN, [place] KIT) 43 Starting Medical injection 1 on Wed [facility] 07/27/22 at 2120, Until Discontinu ed, MADDIE, Blood Glucose < or = 70 mg/dL and patient is NPO, unable to swallow or has mental changes. dextrose 50 2022-0 Yes 25mL 25 mL, Univ ers % in water 07-28 Slow IV ity of (D50W) 02:20: Push, PRN, [place] injection 43 Starting Medica l 25 mL on Wed07/27/22 at 2119, Until Discontinu ed, MADDIE, Blood Glucose < or = 70 mg/dL and patient is NPO, unable to swallow or has mental status changes. ondansetron Yes 4mg 4 mg, Slow Univers (ZOFRAN 07-28 IV Push, ity of (PF)) 02:20: Q6HPRN, [place] injection 4 34 Starting Medi carol mg on Wed07/27/22 at 2119, Until Discontinu ed, Routine, Nausea and Vomiting (N/V) traMADoL 2022- Yes 50mg 50 mg, Univer s (ULTRAM) 07-28 05-11 Oral, ity of tablet 50 02:20: 02:19 Q8HPRN, [place] mg 31 :31 Starting Medical on Wed07/27/22 at 2119, Until Wed07/29/22 at 2118, Routine, Pain (scale 4-6) acetaminoph Yes 650mg 650 mg, Un rosanna en 07-28 Oral, ity of (TYLENOL) 02:20: Q6HPRN, [place] tablet 650 28 Starting Medic al mg on Wed07/27/22 at 2119, Until Discontinu ed, Routine, Pain (scale 1-3) HEPARIN 2022- No 4000U 4,000 Univers SODIUM 07-28 05-09 Units, IV ity of (PORCINE) 01:30: 01:52 Push, [place] 1,000 00 :00 ONCE, 1 Medical UNIT/ML dose, On Branch BOLUS ACS Wed07/27/22 ORDER SET at 2030, MADDIE heparin 2022-0 2022- No 0U/h 0-3,200 Univer s 25,000 5-09 05-09 Units/hr ity of Units/250 01:27: 03:54 [...] OR INITIAL INFUSION RATE.
iopamidol 2022- No [id number] 100mL 100 mL, Univers (ISOVUE 07-28 05-09 Intravenou ity o f 370-500 mL) 00:30: 00:30 s, ONCE, 1 [place] injection 00 :00 dose, On Medica l 100 mL 07/27/22 Branch at 1930, Routine lancets Yes [id number] Check Univ ers (TECHLITE 5-09 blood ity of LANCETS) 28 00:00: glucose 3 [place] gauge Misc 00 time(s) a . Branch lancets Yes [id number] Check Univ ers (TECHLITE 5-09 blood ity of LANCETS) 28 00:00: glucose 3 [place] gauge Misc 00 time(s) a . Branch lancets Yes [id number] Check Univ ers (TECHLITE 5-09 blood ity of LANCETS) 28 00:00: glucose 3 [place] gauge Misc 00 time(s) a . Branch lancets Yes [id number] Check Univ ers (TECHLITE 5-09 blood ity of LANCETS) 28 00:00: glucose 3 [place] gauge Misc 00 time(s) a . Branch apixaban 2022- Yes [id number] 5mg Take [...] [place] mg 00 First dose Medical on Wed03/27/22 at 0900, Until Discontinu ed, Routine levoFLOXaci 2022- No 500mg 500 mg, IV Univers n in D5W 03-27- Piggyback, ity of (LEVAQUIN) 02:45: 04:08 ONCE, 1 [place] 500 mg/100 00 :00 dose, On Medic al mL [facility] 03/26/22 Branch Piggyback at 2044, 500 mg Administer over 60 Minutes, 100 mL
R chase for Anti-Infec tive: Documented Infection< br>Documen kenroy Infection Site: Respirator y
Durat ion of Therapy: Other (see Comments) iopamidol 2022- No [id number] 84mL 84 mL, U nivers (ISOVUE 03-27 Intravenou ity o f 370-500 mL) 02:45: 01:33 s, ONCE, 1 [place] injection 00 :00 dose, On Medica l 84 mL [facility] 03/26/22 Branch at 2044, Routine NaCl 0.9% 2022- No 1000mL at 999 Uni vers (NS) bolus 03-27 mL/hr, ity of infusion 02:00: 03:10 1,000 mL, [place] 1,000 mL 00 :00 IV Medical Infusion, Branch ONCE, 1 dose, On [facility] 03/26/22 at 1999, STAT ondansetron 2022- No 4mg 4 mg, Slow Univers (ZOFRAN 03-27 IV Push, ity of (PF)) 02:00: 02:00 ONCE, 1 [place] injection 4 00 :00 dose, On Medi carol mg [facility] 03/26/22 Branch at 1999, MADDIE morpHINE (4 2022- No 4mg 4 mg, Slow Univers mg/mL) 03-27 IV Push, ity of injection 4 02:00: 02:01 ONCE, 1 [place] mg 00 :00 dose, On Medical [facility] 03/26/22 Branch at 1999, STAT furosemide 2022-0 2022- No 40mg 40 mg, IV U nivers (LASIX) 03-27 Push, ity of injection 00:00: 23:55 ONCE, 1 [place] 40 mg 00 :00 dose, On Medical [facility] 03/26/22 Branch at 1800, MADDIE ipratropium 2022-0 2022- No 3mL 3 mL, Univ ers -albuteroL 03-26 Inhalation it y of (DUONEB) 23:45: 23:49 , ONCE, 1 [place] 0.5 mg-3 00 :00 dose, On Medical mg(2.5 mg [place] 03/26/22 Bran ch base)/3 mL at 1745, nebulizer MADDIE solution 3 mL gabapentin 2022-0 Yes 600mg Take 600 Un rosanna 100 mg 1-05 mg by ity of capsule 20:42: mouth 3 [place] [address] (three) Medical times Branch daily. traZODone 0 Yes 50mg Take 50 mg Un rosanna 50 mg 1-05 by mouth ity of tablet 20:42: at [place] [address] bedtime. Medical Branch atorvastati 0 Yes 40mg Take 40 mg Univers n 40 mg 1-05 by mouth ity of tablet 20:42: at [place] [address] bedtime. Medical Branch dapaglifloz Yes 10mg Take 10 mg Univers in 1-05 by mouth ity of (FARXIGA) 20:42: daily. [place] 10 mg Medical tablet Branch SITagliptin 0 Yes 100mg Take 100 U nivers 100 mg 1-05 mg by ity of tablet 20:42: mouth in [place] [address] the Medical morning. Branch glipiZIDE 0 Yes 10mg Take 10 mg Un rosanna XL 10 mg 24 1-05 by mouth ity of hr tablet 20:42: in the [place] [address] morning Medical and 10 mg Branch in the evening. albuterol 0 Yes [id number] 2{puff} Inhale 2 Univers 90 1-05 Puffs ity of mcg/actuati 00:00: every 4 [place] on inhaler 00 (four) Medical hours as Branch needed for Wheezing or Shortness of Breath. acetaminoph 2022-0 Yes [id number] 500mg Take 1 Univers en (TYLENOL 1-05 tablet by ity of EXTRA 00:00: mouth [place] STRENGTH) 00 every 6 Medical 500 mg (six) Branch tablet hours as needed for Pain for up to 20 doses. acetaminoph 202-0 Yes [id number] 500mg Take 1 Univers en (TYLENOL 1-05 tablet by ity of EXTRA 00:00: mouth [place] STRENGTH) 00 every 6 Medical 500 mg (six) Branch tablet hours as needed for Pain for up to 20 doses. acetaminoph 2022-0 Yes [id number] 500mg Take 1 Univers en (TYLENOL 1-05 tablet by ity of EXTRA 00:00: mouth [place] STRENGTH) 00 every 6 Medical 500 mg (six) Branch tablet hours as needed for Pain for up to 20 doses. acetaminoph 2022-0 Yes [id number] 500mg Take 1 Univers en (TYLENOL 1-05 tablet by ity of EXTRA 00:00: mouth [place] STRENGTH) 00 every 6 Medical 500 mg (six) Branch tablet hours as needed for Pain for up to 20 doses. acetaminoph 2022-0 Yes [id number] 500mg Take 1 Univers en (TYLENOL 1-05 tablet by ity of EXTRA 00:00: mouth [place] STRENGTH) 00 every 6 Medical 500 mg (six) Branch tablet hours as needed for Pain for up to 20 doses. albuterol 2022- No [id number] 2{puff} Inhale 2 Univers 90 03-26-09 Puffs ity of mcg/actuati 00:00: 00:00 every 4 [place] on inhaler 00 :00 (four) Medical hours as Branch needed for Wheezing or Shortness of Breath. levoFLOXaci 2022- No [id number] 500mg Take 1 Univers n 03-26 tablet by ity of (LEVAQUIN) 00:00: 05:59 mouth [place] 500 mg 00 :00 every 24 Medical tablet (twenty-fo Branch ur) hours for 7 days. guaiFENesin 2022- No [id number] 600mg Take 1 Univers (MUCINEX) 03-26 tablet by ity of 600 mg 00:00: 05:59 mouth [place] tablet 00 :00 every 12 Medical (twelve) Branch hours for 7 days. atorvastati 0 Yes 40mg Take 40 mg Univers n 40 mg -19 by mouth ity of tablet 03:22: at [place] 03 bedtime. Medical Branch dapaglifloz 0 Yes 10mg Take 10 mg Univers in - by mouth ity of (FARXIGA) 03:22: daily. [place] 10 mg 03 Medical tablet Branch SITagliptin 2021-0 Yes 100mg Take 100 U nivers 100 mg 7-19 mg by ity of tablet 03:22: mouth in [place] 03 the Medical morning. Branch glipiZIDE 0 Yes 10mg Take 10 mg Un rosanna XL 10 mg 24 -19 by mouth ity of hr tablet 03:22: in the [place] 03 morning Medical and 10 mg Branch in the evening. spironolact 2021-0 2021- No [id number] 25mg Take 1 Univers one 25 mg 7-18 08-18 tablet by ity of tablet 00:00: 04:59 mouth in [place] 00 :00 the Medical morning Branch for 30 days. spironolact 2021-0 2021- No [id number] 25mg Take 1 Univers one 25 mg 7-18 08-18 tablet by ity of tablet 00:00: 04:59 mouth in [place] 00 :00 the Medical morning Branch for 30 days. KCL 2021-2021- No 40meq 40 mEq, Univers (KLOR-CON -17 07-17 Oral, ity of M20) tablet 16:00: 15:16 ONCE, 1 [place] 40 mEq 00 :00 dose, On Medical Sun Branch 10/05/21 at 1100, Routine gabapentin 2021-0 Yes 600mg Take 600 Un rosanna 100 mg 7-17 mg by ity of capsule 15:23: mouth 3 [place] [address] (three) Medical times Branch daily. traZODone 2021-0 Yes 50mg Take 50 mg Un rosanna 50 mg 7-17 by mouth ity of tablet 15:23: at [place] [address] bedtime. Medical Branch atorvastati 2021-0 Yes 40mg Take 40 mg Univers n 40 mg 7-17 by mouth ity of tablet 15:23: at [place] [address] bedtime. Medical Branch dapaglifloz 2021-0 Yes 10mg Take 10 mg Univers in 7-17 by mouth ity of (FARXIGA) 15:23: daily. [place] 10 mg Medical tablet Branch SITagliptin 2021-0 Yes 100mg Take 100 U nivers 100 mg 7-17 mg by ity of tablet 15:23: mouth in [place] [address] the Medical morning. Branch glipiZIDE 2021-0 Yes 10mg Take 10 mg Un rosanna XL 10 mg 24 7-17 by mouth ity of hr tablet 15:23: in the [place] [address] morning Medical and 10 mg Branch in the evening. gabapentin 2021-0 Yes 600mg Take 600 Un rosanna 100 mg 7-17 mg by ity of capsule 15:23: mouth 3 [place] [address] (three) Medical times Branch daily. traZODone 2022-0 Yes 50mg Take 50 mg Un rosanna 50 mg 10-05 by mouth ity of tablet 15:23: at [place] 37 bedtime. Medical Branch apixaban 5 2021- No 5mg Take 5 mg U nivers mg tablet 10-05 by mouth ity o f 13:00: 00:00 in the [place] 47 :00 morning Medical and 5 mg Branch in the evening. hydrOXYzine 2021- No 50mg Take 50 mg Univers 50 mg 10-05 by mouth 3 ity of tablet 13:00: 00:00 (three) [place] 44 :00 times Medical daily as Branch needed for Itching. amLODIPine 2021- No 10mg Take 10 mg Univers 10 mg 10-05 by mouth ity of tablet 13:00: 00:00 in the [place] 44 :00 morning. Medical Branch metoprolol 2021- No 50mg Take 50 mg Univers succinate 10-05 by mouth ity o f XL 50 mg 24 13:00: 00:00 in the [place] [facility] as hr tablet 44 :00 morning. Medica l Branch cyclobenzap Yes 10mg 10 mg, Univ ers rine 10-05 Oral, ity of (FLEXERIL) 02:39: TIDPRN, [place] tablet 10 34 Starting Medica l mg on [facility] Branch 10/04/21 at 2139, Until Discontinu ed, Routine, Muscle Spasms KCL 2021- No 40meq 40 mEq, Univers (KLOR-CON 10-05 Oral, ity of M20) tablet 00:30: 23:33 ONCE, 1 [place] 40 mEq 00 :00 dose, On Medical [facility] Branch 10/04/21 at 1930, Routine magnesium 2021- Yes [id number] 400mg Take 400 Univers oxide 420 7-17 mg by ity of mg Tab 00:00: mouth 2 [place] 00 (two) Medical times Branch daily. polyethylen Yes [id number] 17g Take 17 g Univers e glycol 7-17 by mouth ity of 3350 17 00:00: in the [place] gram/dose 00 morning. Medica l powder Branch magnesium 2021- Yes [id number] 400mg Take 400 Univers oxide 420 7-17 mg by ity of mg Tab 00:00: mouth 2 [place] 00 (two) Medical times Branch daily. polyethylen 2021-0 Yes [id number] 17g Take 17 g Univers e glycol 7-17 by mouth ity of 3350 17 00:00: in the [place] gram/dose 00 morning. Medica l powder Branch magnesium 2021-0 Yes [id number] 400mg Take 400 Univers oxide 420 7-17 mg by ity of mg Tab 00:00: mouth 2 [place] 00 (two) Medical times Branch daily. polyethylen 2021-0 Yes [id number] 17g Take 17 g Univers e glycol 7-17 by mouth ity of 3350 17 00:00: in the [place] gram/dose 00 morning. Medica l powder Branch magnesium 2021-2022- No [id number] 400mg Take 400 Univers oxide 420 7-17 05-09 mg by ity of mg Tab 00:00: 00:00 mouth 2 [place] 00 :00 (two) Medical times Branch daily. polyethylen 2021-2022- No [id number] 17g Take 17 g Univers e glycol 7-17 05-09 by mouth ity of 3350 17 00:00: 00:00 in the [place] gram/dose 00 :00 morning. Medica l powder Branch metoprolol 2021- No [id number] 50mg Take 1 Univers tartrate 50 -05 11-17 tablet by it y of mg tablet 00:00: 04:59 mouth in [place] 00 :00 the Medical morning Branch and 1 tablet in the evening. Do all this for 30 days. apixaban 5 2- No 1358 5mg Take 1 Univ ers mg tablet 10-05- tablet by ity of 00:00: 04:59 mouth in [place] 00 :00 the Medical morning Branch and 1 tablet in the evening. Do all this for 30 days. Indication s: atrial fibrillati on furosemide 2021-2021- No [id number] 20mg Take 1 Univers 20 mg -05 11-17 tablet by ity of tablet 00:00: 04:59 mouth in [place] 00 :00 the Medical morning Branch for 30 days. metoprolol 2021-2021- No [id number] 50mg Take 1 Univers tartrate 50 -05 11-17 tablet by it y of mg tablet 00:00: 04:59 mouth in [place] 00 :00 the Medical morning Branch and 1 tablet in the evening. Do all this for 30 days. apixaban 5 2021- No 1358 5mg Take 1 Univ ers mg tablet 10-05 tablet by ity of 00:00: 04:59 mouth in [place] 00 :00 the Medical morning Branch and 1 tablet in the evening. Do all this for 30 days. Indication s: atrial fibrillati on furosemide 2021- No [id number] 20mg Take 1 Univers 20 mg 10-05 tablet by ity of tablet 00:00: 04:59 mouth in [place] 00 :00 the Medical morning Branch for 30 days. spironolact Yes 25mg 25 mg, Univ ers one 10-04 Oral, ity of (ALDACTONE) 23:30: DAILY, [place] tablet 25 00 First dose Medi carol mg (after Branch last reorder) on Wed10/04/21 at 1830, Until Discontinu ed, Routine Sliding Yes Subcutaneo Univ ers Scale 7-16 us, Q4H, ity of Insulin - 01:00: First dose [place] Lispro 00 (after Medical (HumaLOG) + last Branch Fsbg modificati Testing on) on Wed10/03/21 at 2000, Until Discontinu ed, Routine spironolact 2021- No 25mg 25 mg, Uni vers one 10-03 Oral, ity of (ALDACTONE) 21:30: 21:54 ONCE, 1 [place] tablet 25 00 :00 dose, On Medica l mg Fri Branch 10/03/21 at 1630, Routine iron No 200mg 200 mg, IV Unive rs sucrose 10-0320 Infusion, ity of (VENOFER) 20:30: 13:59 DAILY, [place] 200 mg in 00 :00 Administer Medi carol NaCl 0.9% over 2.5 Branch (NS) 100 mL Hours, infusion First dose on Wed10/03/21 at 1530, For 5 doses sulfur 2021- No [id number] 5mL 5 mL, Unive rs hexafluorid 10-03 Intravenou i ty of e microsphr 17:15: 17:10 s, ONCE, 1 [place] (LUMASON) 00 :00 dose, On Medica l injection 5 Fri Branch mL 10/03/21 at 1215, Routine
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 Restricted medication : KWABENA YEUNG SITagliptin Yes 100mg 100 mg, Un rosanna (JANUVIA) 10-03 Oral, ity of tablet 100 14:00: DAILY, [place] mg 00 First dose Medical on Wed Branch 10/03/21 at 0900, Until Discontinu ed, Routine magnesium Yes 400mg 400 mg, Univ ers oxide 10-03 Oral, BID, ity of (MAG-OX 13:00: First dose [place] 400) tablet 00 on Fri Medica l 400 mg 10/03/21 at Branch 0800, Until Discontinu ed, Routine Sliding 2021-2021- No Subcutaneo Uni vers Scale 10-03 , TID ity of Insulin - 13:00: 00:24 MEALS, [place] Lispro 00 :36 First dose Medical (HumaLOG) + (after Branch Fsbg last Testing modificati on) on Wed10/03/21 at 0800, Until Discontinu ed, Routine KCL [...] 2315, Until Wed10/03/21 at 0636, Routine magnesium No 2g 2 g, IV Univ ers sulfate in 10-03 Piggyback, it y of water 2 04:15: 05:08 Administer [place] gram/50 mL 00 :00 over 60 Medica l (4 %) Minutes, Branch infusion 2 ONCE, 1 g dose, On Wed10/02/21 at 2315, Routine traZODone Yes 50mg 50 mg, Univer s (DESYREL) 7 Oral, QHS, ity of tablet 50 03:15: First dose [place] mg 00 on [facility] 10/02/21 at Branch 2215, Until Discontinu ed, Routine metoprolol Yes 50mg 50 mg, Unive rs tartrate 10-03 Oral, BID, ity o f (LOPRESSOR) 03:15: First dose [place] tablet 50 00 on [facility] Medical mg 10/02/21 at Branch 2215, Until Discontinu ed, Routine gabapentin Yes 600mg 600 mg, Uni vers (NEURONTIN) 10-03 Oral, TID, it y of capsule 600 03:15: First dose [place] mg 00 on [facility] Medical 10/02/21 at Branch 2215, Until Discontinu ed, Routine apixaban 0 Yes 5mg 5 mg, Univers (ELIQUIS) 7-15 Oral, BID, ity of tablet 5 mg 03:15: First dose [place] 00 on [facility] 10/02/21 at Branch 2215, Until Discontinu ed, Routine
Indicatio ns: Non-Valvul ar Atrial Fibrillati on furosemide 0 2021- No 80mg 80 mg, Univ ers (LASIX) 715 07-15 Slow IV ity of injection 03:15: 13:58 Push, [place] 80 mg 00 :41 Q12H, Medical First dose Branch on [facility] 10/02/21 at 2215, Until Discontinu ed, Routine morpHINE (2 Yes 2mg 2 mg, Slow Univers mg/mL) 7-15 IV Push, ity of injection 2 03:10: Q4HPRN, [place] mg 42 Starting Medical on [facility] Branch 10/02/21 at 2210, Until Discontinu ed, Routine, Pain (scale 7-10) sennosides Yes 8.6mg 8.6 mg, Uni vers (SENOKOT) 7-15 Oral, BID, ity of tablet 8.6 03:00: First dose [place] mg 00 on [facility] 10/02/21 at Branch 2200, Until Discontinu ed, Routine docusate Yes 100mg 100 mg, Unive rs (COLACE) 715 Oral, BID, ity o f capsule 100 03:00: First dose [place] mg 00 on [facility] 10/02/21 at Branch 2200, Until Discontinu ed, Routine Sliding 2021- No Subcutaneo Uni vers Scale 7 07-15 us, Q4H, ity of Insulin - 03:00: 11:43 First dose [place] Lispro 00 :16 on [facility] (HumaLOG) + 10/02/21 at Br anch Fsbg 2200, Testing Until Discontinu ed, Routine ondansetron 0 Yes 4mg 4 mg, Slow Univers (ZOFRAN 7-15 IV Push, ity of (PF)) 02:49: Q6HPRN, [place] injection 4 30 Starting Medi carol mg on [facility] 10/02/21 at 2149, Until Discontinu ed, Routine, Nausea and Vomiting (N/V) NaCl 0.9% 2021- No 1000mL at 999 Uni vers (NS) bolus 10-03 mL/hr, ity of infusion 02:45: 01:35 1,000 mL, [place] as 1,000 mL 00 :00 IV Medical Infusion, Branch ONCE, 1 dose, On [place] 10/02/21 at 2145, MADDIE dextrose 0 Yes 250mL 250 mL, IV Un rosanna 10% (D10W) 10-03 Infusion, ity of bolus 02:33: PRN - SEE [place] infusion 38 INSTRUCTIO Medic al 250 mL [...] glucose is < 80 mg/dL, repeat.
glucagon Yes 1mg 1 mg, Univers (GLUCAGEN 10-03 Intramuscu ity of DIAGNOSTIC 02:33: [place], PRN, [place] KIT) 34 Starting Medical injection 1 on [place] Branch mg 10/02/21 at 2133, Until Discontinu ed, MADDIE, Blood Glucose < or = 70 mg/dL and patient is unable to swallow or has mental changes. iopamidol 2021- No [id number] 100mL 100 mL, Univers (ISOVUE 10-03 Intravenou ity o f 370-500 mL) 01:15: 01:15 s, ONCE, 1 [place] injection 00 :00 dose, On Medica l 100 mL [place] Branch 10/02/21 at 2015, Routine HYDROcodone 2021-2021- No 1{tbl} 1 tablet, Univers -acetaminop 10-02 [...] ity of (PF)) 21:15: 21:12 ONCE, 1 [place] injection 4 00 :00 dose, On Medi carol mg [place] Branch 10/02/21 at 1615, MADDIE nitroglycer 2021- No .4mg 0.4 mg, Un rosanna in 10-02 Sublingual ity of (NITROSTAT) 21:15: 21:12 , ONCE, 1 [place] sublingual 00 :00 dose, On Medic al tablet 0.4 [place] Branch mg 10/02/21 at 1615, MADDIE aspirin 2021- No 325mg 325 mg, Unive rs tablet 325 10-02 Oral, ity of mg 21:15: 21:12 ONCE, 1 [place] 00 :00 dose, On Medical [place] Branch 10/02/21 at 1615, MADDIE venlafaxine 2021- No 225mg Take 225 Univers HCl 10-02 mg by ity of (EFFEXOR 15:56: 00:00 mouth [place] ORAL) 38 :00 daily. Medical Branch traMADol 2021- No 50mg Take 50 mg Un rosanna 100 mg 10-02 by mouth 3 ity of capsule 15:56: 00:00 (three) [place] 35 :00 times Medical daily. Branch risperiDONE 2021- No 2mg Take 2 mg Univers 2 mg tablet 10-02 by mouth ity of 15:56: 00:00 at [place] 26 :00 bedtime. Medical Branch apixaban 2021- No 5mg 5 mg, Univers (ELIQUIS) 04-13 Oral, ity of tablet 5 mg 09:15: 09:26 ONCE, 1 [place] 00 :[place] dose, On Medical [place] [facility] 04/13/21 at 0315, Routine
Indicatio ns: DVT/PE iohexol 2021- No [id number] 100mL 100 mL, U nivers (OMNIPAQUE 04-13 Intravenou it y of 350 09:00: 08:40 s, ONCE, 1 [place] BULK-100 00 :00 dose, On Medical mL) [facility] injection 04/13/21 at 100 mL 0300, Routine magnesium No 2g 2 g, IV Univ ers sulfate in 04-13 Piggyback, it y of water 2 07:45: 09:00 ONCE, 1 [place] gram/50 mL 00 :00 dose, On Medic al (4 %) [facility] infusion 2 04/13/21 at g 0145, Routine NaCl 0.9% 2021- No 1000mL at 999 Uni vers (NS) bolus 04-13 mL/hr, ity of infusion 06:45: 08:00 1,000 mL, [place] as 1,000 mL 00 :00 IV Medical Infusion, [place] ONCE, 1 dose, On [place] 04/13/21 at 0045, STAT ketorolac 2021- No 15mg 15 mg, Unive rs (TORADOL) 04-13 Slow IV ity of injection 06:45: 06:01 Push, [place] 15 mg 00 :00 ONCE, 1 Medical dose, On Branch [place] 04/13/21 at 0045, Routine
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 Restricted medication : Link GERMAN diphenhydrA 2021- No 25mg 25 mg, Uni vers MINE 04-13 Slow IV ity of (BENADRYL) 06:45: 06:01 Push, [place] injection 00 :00 ONCE, 1 Medical 25 mg dose, On Branch 04/13/21 at 0045, STAT metoclopram 2021-0 2021- No 10mg 10 mg, Uni vers fariba HCl 04-13 Slow IV ity of (REGLAN) 06:45: 06:02 Push, [place] injection 00 :00 ONCE, 1 Medical 10 mg dose, On Branch 04/13/21 at 0045, MADDIE ondansetron 2021-0 Yes [id number] 4mg Take 1 Univers (ZOFRAN 1-23 tablet by ity of ODT) 4 mg 00:00: mouth [place] disintegrat 00 every 8 Medic al ing tablet (eight) Branch hours as needed for Nausea and Vomiting (N/V). benzonatate 2021-0 Yes [id number] 200mg Take 1 [facility] 200 mg 1-23 capsule by ity of capsule 00:00: mouth 3 [place] 00 (three) Medical times Branch daily as needed for Cough for up to 20 doses. ondansetron 2021-0 Yes [id number] 4mg Take 1 [facility] (ZOFRAN 1-23 tablet by ity of ODT) 4 mg 00:00: mouth [place] disintegrat 00 every 8 Medic al ing tablet (eight) Branch hours as needed for Nausea and Vomiting (N/V). ondansetron 2-0 Yes [id number] 4mg Take 1 Univers (ZOFRAN 1-23 tablet by ity of ODT) 4 mg 00:00: mouth [place] disintegrat 00 every 8 Medic al ing tablet (eight) Branch hours as needed for Nausea and Vomiting (N/V). ondansetron 2-0 Yes [id number] 4mg Take 1 Univers (ZOFRAN 1-23 tablet by ity of ODT) 4 mg 00:00: mouth [place] disintegrat 00 every 8 Medic al ing tablet (eight) Branch hours as needed for Nausea and Vomiting (N/V). ondansetron 2-0 3- No [id number] 4mg Take 1 Univers (ZOFRAN 1-23 05-09 tablet by ity of ODT) 4 mg 00:00: 00:00 mouth [place] disintegrat 00 :00 every 8 Medic al ing tablet (eight) Branch hours as needed for Nausea and Vomiting (N/V). benzonatate No [id number] 200mg Take 1 [facility] 200 mg 04-13 capsule by ity of capsule 00:00: 00:00 mouth 3 [place] 00 :00 (three) Medical times Branch daily as needed for Cough for up to 20 doses. NaCl 0.9% 2020-03 No 1000mL at 999 Uni vers (NS) bolus 05-05-14 mL/hr, ity of infusion 00:00: 01:52 1,000 mL, [place] as 1,000 mL 00 :00 IV Medical Infusion, Branch ONCE, 1 dose, On [facility] 03/03/21 at 1800, MADDIE butorphanol 2020-03- No 1mg 1 mg, IV U nivers (STADOL) 05-05 Push, ity of injection 1 00:00: 23:11 ONCE, 1 [place] mg 00 :00 dose, On Medical [facility] 03/03/21 at 1800, Routine ondansetron 2020-03- No 4mg 4 mg, Slow Univers (ZOFRAN 05-05 IV Push, ity of (PF)) 00:00: 23:11 ONCE, 1 [place] injection 4 00 :00 dose, On Medi carol mg [facility] 03/03/21 at 1800, MADDIE ketorolac 2020-03- No 30mg 30 mg, Unive rs (TORADOL) 05-05 Slow IV ity of injection 00:00: 23:11 Push, [place] 30 mg 00 :00 ONCE, 1 Medical dose, On Branch [facility] 03/03/21 at 1800, Routine
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 etodolac 2020-03 Yes [id number] 300mg Take 1 Un [place] 300 mg 2-13 capsule by ity of capsule 00:00: mouth 3 [place] 00 (three) Medical times Branch daily with meals as needed for Pain. etodolac 2020-03- No [id number] 300mg Take 1 U nivers 300 mg 2-13 07-17 capsule by ity of capsule 00:00: 00:00 mouth 3 [place] 00 :00 (three) Medical times Branch daily with meals as needed for Pain. maalox:diph 2020-03 No 15mL 15 mL, Uni vers enhydrAMINE 012-31 Oral, ity of :lidocaine 06:00: 05:07 ONCE, 1 [place] as 2 % viscous 00 :00 dose, On Medi carol 1:1:1 Wed Branch (FIRST-MOUT 12/31/20 [facility]) at 0100, oral Routine suspension 15 mL famotidine 2020-03 No 20mg 20 mg, Univ ers (PEPCID 012-31 Slow IV ity of (PF)) 06:00: 05:14 Push, [place] injection 00 :00 ONCE, 1 Medical 20 mg dose, On Branch Wed12/31/20 at 0100, Routine magnesium 2020-03 No 2g 2 g, IV Univ ers sulfate in 012-31 Piggyback, it y of water 2 05:45: 06:34 ONCE, 1 [place] gram/50 mL 00 :00 dose, On Medic al (4 %) [place] infusion 2 12/31/20 g at 0045, Routine ketorolac 2020-03- No 30mg 30 mg, Unive rs (TORADOL) 012-31 Slow IV ity of injection 04:45: 03:37 Push, [place] 30 mg 00 :00 ONCE, 1 Medical dose, On Branch Wed12/30/20 at 2345, MADDIE
Fa culty member approving Restricted medication : LISA SCHULTE aspirin 2020-03 No 324mg 324 mg, Unive rs chewable 012-31 Oral, ity of tablet 324 04:45: 03:37 ONCE, 1 [place] mg 00 :00 dose, On Medical Mon Branch 12/30/20 at 2345, Routine HYDROcodone 2020- No 1{tbl} 1 tablet, Univers -acetaminop 10-15 Oral, ONCE i ty of hen (NORCO) 02:50: 02:54 NOW, 1 [place] as 10-325 mg 00 :00 dose, Mon Medic al tablet 1 10/14/20 at [facility] h tablet 2200, Routine iopamidol 2020- No [id number] 100mL 100 mL, Univers (ISOVUE 10-15 Intravenou ity o f 370-500 mL) 02:30: 01:19 s, ONCE, 1 [place] injection 00 :00 dose, Mon Medic al 100 mL 10/14/20 at [place] 2130, Routine ondansetron 2020- No 4mg 4 mg, Slow Univers (ZOFRAN 10-15 IV Push, ity of (PF)) 01:34: 01:35 ONCE, 1 [place] injection 4 00 :00 dose, Mon Med ical mg 10/14/20 at [place] 204, MADDIE morpHINE 2020- No 4mg 4 mg, Slow Un ro[place] injection 4 10-15 IV Push, ity of mg 01:34: 01:35 ONCE, 1 [place] 00 :00 dose, [facility] 10/14/20 at [place] 2045, STAT megestroL 2020- No [id number] 40mg Take 1 Univers 40 mg 10-14- 100 tablet by ity of tablet 00:00: 04:59 mouth 2 [place] 00 :00 (two) Medical times [place] daily Then 1 tablet by mouth daily for 14 days. traMADol Yes 50mg Take 50 mg Uni vers 100 mg 5-09 by mouth 3 ity of capsule 00:35: (three) [place] 08 times Medical daily. Branch venlafaxine 0 Yes 225mg Take 225 U nivers HCl 5-09 mg by ity of (EFFEXOR 00:35: mouth [place] ORAL) 08 daily. Medical Branch gabapentin 0 Yes 600mg Take 600 Un [place] 100 mg 5-09 mg by ity of capsule 00:35: mouth 3 [place] 08 (three) Medical times [place] daily. hydrOXYzine 2021-0 Yes 50mg Take 50 mg Univers 50 mg 5-09 by mouth 3 ity of tablet 00:35: (three) [place] 08 times Medical daily as Branch needed for Itching. traZODone 2020-0 Yes 50mg Take 50 mg Un [place] 50 mg 5-09 by mouth ity of tablet 00:35: at [place] 08 bedtime. Medical Branch risperiDONE 2020-0 Yes 2mg Take 2 mg U nivers 2 mg tablet 5-09 by mouth ity of 00:35: at [place] 08 bedtime. Medical Branch traMADol 2020-0 Yes [...] mouth 3 ity of tablet 00:35: (three) [place] 08 times Medical daily as Branch needed for Itching. traZODone 2020-0 Yes 50mg Take 50 mg Un [place] 50 mg 5-09 by mouth ity of tablet 00:35: at [place] 08 bedtime. Medical Branch risperiDONE 0 Yes 2mg Take 2 mg U nivers 2 mg tablet 5-09 by mouth ity of 00:35: at [place] 08 bedtime. Medical Branch flu vaccine 2020-0 202- No .5mL 0.5 mL, Un ro[place] 6 months - 05-08 Intramuscu ity of and up (PF) 20:15: 21:09 lar, ONCE, [place] (FLUZONE 00 :00 1 dose, Medical QUAD 07/27/20 Branch [id number] at 1515, (PF)) Routine syringe 0.5 mL [...] [place] ORAL) 08 daily. Medical Branch gabapentin Yes 600mg Take 600 Un [place] 100 mg 5-08 mg by ity of capsule 19:35: mouth 3 [place] 08 (three) Medical times Branch daily. hydrOXYzine Yes 50mg Take 50 mg Univers 50 mg 5-08 by mouth 3 ity of tablet 19:35: (three) [place] 08 times Medical daily as Branch needed for Itching. traZODone 0 Yes 50mg Take 50 mg Un [place] 50 mg 5-08 by mouth ity of tablet 19:35: at [place] 08 bedtime. Medical Branch risperiDONE Yes 2mg Take 2 mg U nivers 2 mg tablet 5-08 by mouth ity of 19:35: at [place] 08 bedtime. Medical Branch lisinopriL Yes 5mg 5 mg, Univer s (PRINIVIL,Z 5-08 Oral, ity of ESTRIL) 14:00: DAILY, [place] tablet 5 mg 00 First dose Me dical on [facility] 07/27/20 at 0900, Until Discontinu ed, Routine furosemide Yes 80mg 80 mg, Unive rs (LASIX) -08 Oral, ity of tablet 80 14:00: QAM+PM, [place] mg 00 First dose Medical on [facility] 07/27/20 at 0900, Until Discontinu ed, Routine furosemide 2020- No 80mg 80 mg, Univ ers (LASIX) 07-27 05-08 Slow IV ity of injection 13:45: 14:35 Push, ONCE [place] 80 mg 00 :00 NOW, 1 Medical dose, [facility] 07/27/20 at 0845, Routine KCL 2020- No 40meq 40 mEq, Univers (KLOR-CON - 05-08 Oral, ONCE ity of M20) tablet 13:30: 14:34 NOW, 1 [place] as 40 mEq 00 :00 dose, [facility] 07/27/20 at Branch 0830, Routine acetaminoph 2020-0 Yes 1{tbl} 1 tablet, Univers en-codeine 5-08 Oral, ity of (TYLENOL 03:00: Q6HPRN, [place] #3) 300-30 00 Starting Medic al mg tablet 1 Wed07/26/20 Br anch tablet at 2200, Until Discontinu ed, Routine, Pain (scale 4-6), Pain (scale 7-10) hydrOXYzine 2020- No 50mg 50 mg, Uni vers (ATARAX) 07-27-08 Oral, ity of tablet 50 03:00: 02:21 ONCE, 1 [place] mg 00 :00 dose, Fri Medical 07/26/20 at Branch 2200, Routine traZODone Yes 50mg 50 mg, Univer s (DESYREL) 5-08 Oral, QHS, ity of tablet 50 02:00: First dose [place] mg 00 on Wed Medical 07/26/20 at [place] 2100, Until Discontinu ed, Routine risperiDONE Yes 2mg 2 mg, Unive rs (RISPERDAL) 07-27 Oral, QHS, it y of tablet 2 mg 02:00: First dose [place] 00 on Wed Medical 07/26/20 at [place] 2100, Until Discontinu ed, Routine furosemide No 80mg 80 mg, Univ ers (LASIX) 07-27 Slow IV ity of injection 01:00: 12:36 Push, [place] 80 mg 00 :52 Q12H, Medical First dose [place] (after last modificati on) on Wed07/26/20 at 2000, Until Discontinu ed, Routine magnesium 2020- No 4g 4 g, IV Univ ers sulfate in 07-27 Piggyback, it y of water 4 00:30: 01:44 ONCE, 1 [place] gram/50 mL 00 :00 dose, Fri Medi carol (8 %) IV 07/26/20 at [place] Piggyback 4 1930, g Routine lisinopriL Yes [id number] 5mg Take 1 Univers 5 mg tablet 5-08 tablet by ity of 00:00: mouth [place] 00 daily. [facility] lisinopriL Yes [id number] 5mg Take 1 Univers 5 mg tablet 5-08 tablet by ity of 00:00: mouth [place] 00 daily. [facility] lisinopriL Yes [id number] 5mg Take 1 Univers 5 mg tablet 5-08 tablet by ity of 00:00: mouth [place] 00 daily. [facility] lisinopriL Yes [id number] 5mg Take 1 Univers 5 mg tablet 5-08 tablet by ity of 00:00: mouth [place] 00 daily. Medical Branch lisinopriL Yes [id number] 5mg Take 1 Univers 5 mg tablet 5-08 tablet by ity of 00:00: mouth [place] 00 daily. Medical Branch lisinopriL 2021- No [id number] 5mg Take 1 Univers 5 mg tablet 5-08 07-14 tablet by it y of 00:00: 00:00 mouth [place] 00 :00 daily. Medical Branch KCL 20 mEq 2021- No [id number] 40meq Take 2 Univers tablet 5-08 05-04 tablets by ity of 00:00: 04:59 mouth [place] 00 :00 daily for Medical 360 days. Branch KCL 20 mEq 2021- No [id number] 40meq Take 2 Univers tablet 5-08 05-04 tablets by ity of 00:00: 04:59 mouth [place] 00 :00 daily for Medical 360 days. Branch KCL 20 mEq 2021- No [id number] 40meq Take 2 Univers tablet 5-08 05-04 tablets by ity of 00:00: 04:59 mouth [place] 00 :00 daily for Medical 360 days. Branch KCL 20 mEq 2021- No [id number] 40meq Take 2 Univers tablet 5-08 05-04 tablets by ity of 00:00: 04:59 mouth [place] 00 :00 daily for Medical 360 days. Branch KCL 20 mEq 2020-2021- No [id number] 40meq Take 2 Univers tablet 5-08 05-04 tablets by ity of 00:00: 04:59 mouth [place] 00 :00 daily for Medical 360 days. Branch lisinopriL 2020- No [id number] 5mg Take 1 Univers 5 mg tablet 5-08 05-08 tablet by it y of 00:00: 00:00 mouth [place] 00 :00 daily. Medical Branch amLODIPine 2020- No 10mg Take 10 mg Univers 10 mg 07-26-07 by mouth ity of tablet 20:22: 00:00 daily. [place] 37 :00 Medical Branch metoprolol 2020- No 50mg Take 50 mg Univers tartrate 50 07-26 by mouth 2 i ty of mg tablet 20:22: 00:00 (two) [place] 37 :00 times Medical daily. Branch apixaban No 5mg Take 5 mg Uni vers (ELIQUIS) 5 07-26 by mouth 2 i ty of mg tablet 20:22: 00:00 (two) [place] 37 :00 times Medical daily. Branch insulin No 55U inject 55 Univ ers detemir 07-26 Units ity of (LEVEMIR 20:22: 00:00 under the [place] as FLEXPEN SC) 37 :00 skin every Me dical morning. Branch furosemide No 40mg Take 40 mg Univers (LASIX) 40 07-26 by mouth ity of mg tablet 20:22: 00:00 daily. [place] 37 :00 Medical Branch methocarbam Yes 500mg 500 mg, Un ro[place] oL 07-26 Oral, QID, ity of (ROBAXIN) 17:00: First dose [place] tablet 500 00 on Fri Medical mg 07/26/20 at Branch 1200, Until Discontinu ed, Routine butalbital- 2020- No 1{tbl} 1 tablet, Univers acetaminoph 07-26 Oral, ONCE i ty of en-caff 16:15: 15:40 NOW, 1 [place] (ESGIC) 00 :00 dose, Fri Medical 50-325-40 07/26/20 at [facility] h mg tablet 1 1115, tablet Routine proMETHazin Yes 12.5mg 12.5 mg, Univers e 07-26 IV ity of (PHENERGAN) 15:07: Piggyback, [place] 12.5 mg in 17 Q4HPRN, Medica l NaCl 0.9% Starting Branch (NS) 50 mL 07/26/20 IV at 1007, piggyback Until Discontinu ed, Routine, Nausea and Vomiting (N/V) furosemide 2020- No 40mg 40 mg, Univ ers (LASIX) 07-26 Slow IV ity of injection 15:05: 15:41 Push, [place] 40 mg 00 :00 ONCE, 1 Medical dose, Fri Branch 07/26/20 at 1015, Routine insulin 2020-0 Yes 40U 40 Units, Unive rs glargine 07-26 Subcutaneo ity o f (LANTUS 14:00: us, DAILY, [place] U-100) 00 First dose Medical injection on Wed Branch 40 Units 07/26/20 at 0900, Until Discontinu ed, Routine venlafaxine 0 Yes 225mg 225 mg, Un [place] (EFFEXOR) [...] apixaban Yes 5mg 5 mg, Univers (ELIQUIS) 07-26 Oral, BID, ity of tablet 5 mg 13:00: First dose [place] 00 on Wed Medical 07/26/20 at Branch 0800, Until Discontinu ed, Routine metoprolol Yes 50mg 50 mg, Unive rs tartrate 07-26 Oral, BID, ity o f (LOPRESSOR) 13:00: First dose [place] tablet 50 00 on Wed Medical mg 07/26/20 at Branch 0800, Until Discontinu ed, Routine gabapentin 0 Yes 600mg 600 mg, Uni vers (NEURONTIN) 07-26 Oral, TID, it y of capsule 600 13:00: First dose [place] mg 00 on Wed Medical 07/26/20 at Branch 0800, Until Discontinu ed, Routine Sliding 2020-0 Yes Subcutaneo Univ ers Scale 07 us, TID ity of Insulin - 13:00: MEALS+HS, [place] as Lispro 00 First dose Medical (HumaLOG) + on Wed Branch [facility] 07/26/20 at Testing 0800, Until Discontinu ed, Routine furosemide 2020-0 202- No 40mg 40 mg, Univ ers (LASIX) 07-26 05-07 Slow IV ity of injection 13:00: 15:07 Push, [place] 40 mg 00 :36 Q12H, Medical First dose Branch on Wed07/26/20 at 0800, Until Discontinu ed, Routine pantoprazol Yes 40mg 40 mg, Univ ers e 07-26 Oral, ity of (PROTONIX) 07:30: DAILY, [place] EC tablet 00 First dose Medi carol 40 mg on Wed Branch 07/26/20 at 0230, Until Discontinu ed, Routine escitalopra 2020- No 20mg Take 20 mg Univers m oxalate 07-26 by mouth ity o f 20 mg 05:22: 00:00 daily. At [place] tablet 10 :00 noon Medical Branch montelukast 2020- No 10mg Take 10 mg Univers 10 mg 07-26 by mouth. ity of tablet 05:22: 00:00 At night [place] 10 :00 [facility] acetaminoph Yes 650mg 650 mg, Un ro[place]anna en 07-26 Oral, ity of (TYLENOL) 05:14: Q6HPRN, [place] tablet 650 47 Starting Medic al mg Wed07/26/20 Branch at 0014, Until Discontinu ed, Routine, Pain (scale 1-3) furosemide No 40mg 40 mg, Univ ers (LASIX) 07-26 Slow IV ity of injection 05:00: 04:49 Push, [place] 40 mg 00 :00 ONCE, 1 Medical dose, Wed Branch 07/26/20 at 0000, Routine furosemide 2020- No 40mg 40 mg, IV U nivers (LASIX) 07-26 Push, ity of injection 03:30: 02:51 ONCE, [...] 1 [place] injection 4 00 :00 dose, [facility] Med ical mg 07/25/20 at Branch 2130, MADDIE famotidine 2020- No 20mg 20 mg, Univ ers (PEPCID 07-26 Slow IV ity of (PF)) 02:30: 02:48 Push, [place] injection 00 :00 ONCE, 1 Medical 20 mg dose, [facility] 07/25/20 at 2130, MADDIE methocarbam 2020- No [id number] 500mg Take 1 Univers oL 500 mg 07-26 tablet by ity of tablet 00:00: 04:59 mouth 4 [place] 00 :00 (four) Medical times Branch daily for 30 days. insulin 2020- No [id number] 55U inject 55 Univers detemir 07-26 Units ity of U-100 100 00:00: 04:59 under the [place] unit/mL 00 :00 skin daily Medica l injection for 30 Branch days. furosemide 2020- No [id number] 60mg Take 3 Univers 20 mg 07-26 tablets by ity of tablet 00:00: 04:59 mouth [place] 00 :00 every Medical morning Branch and evening for 30 days. amLODIPine 2020- No [id number] 10mg Take 1 Univers 10 mg 07-26 tablet by ity of tablet 00:00: 04:59 mouth [place] 00 :00 daily for Medical 30 days. Branch apixaban 5 2020- No 5mg Take 1 Univ ers mg tablet 07-26 tablet by ity of 00:00: 04:59 mouth 2 [place] 00 :00 (two) Medical times Branch daily for 30 days. Indication s: PE metoprolol 2020- No [id number] 50mg Take 1 Univers succinate 07-26 tablet by ity of XL 50 mg 24 00:00: 04:59 mouth 2 [place] hr tablet 00 :00 (two) Medical times [place] daily for 30 days. escitalopra 2020-0 Yes 20mg Take 20 mg Univers m oxalate 1-19 by mouth ity of 20 mg 22:54: daily. At [place] tablet 35 noon [facility] montelukast 2020-0 Yes 10mg Take 10 mg Univers 10 mg -19 by mouth. ity of tablet 22:54: At night [address] Branch apixaban 2020-0 Yes 5mg 5 mg, Univers (ELIQUIS) 1-18 Oral, BID, ity of tablet 5 mg 02:30: First dose [place] 00 on [facility] 04/07/20 at Branch 2030, Until Discontinu ed, Routine metoprolol 0 Yes 50mg 50 mg, Unive rs tartrate 1-17 Oral, BID, ity o f (LOPRESSOR) 14:00: First dose [place] tablet 50 00 (after Medical mg last Branch modificati on) on [place] 04/07/20 at 0800, Until Discontinu ed, Routine atorvastati 0 Yes 40mg 40 mg, Univ ers n (LIPITOR) 1-17 Oral, QHS, it y of tablet 40 03:00: First dose [place] mg 00 on [facility] 04/06/20 at Branch 2100, Until Discontinu ed, Routine QUEtiapine 0 Yes 400mg 400 mg, Uni vers (SEROQUEL) 1-17 Oral, QPM ity of tablet 400 02:00: AT 2000, [place] mg 00 First dose Medical on [facility] 04/06/20 at 2000, Until Discontinu ed, Routine escitalopra 2020-0 Yes 20mg 20 mg, Univ ers m oxalate 1-16 Oral, ity of (LEXAPRO) 19:00: DAILY, [place] tablet 20 00 First dose Medi carol mg on [facility] 04/06/20 at 1300, Until Discontinu ed, Routine QUEtiapine 2020-0 Yes 50mg 50 mg, Unive rs (SEROQUEL) 1-16 Oral, QAM, ity of tablet 50 15:00: First dose [place] mg 00 on [facility] 04/06/20 at Branch 0900, Until Discontinu ed, Routine amLODIPine Yes 10mg 10 mg, Unive rs (NORVASC) 16 Oral, ity of tablet 10 15:00: DAILY, [place] mg 00 First dose Medical on [facility] Branch 04/06/20 at 0900, Until Discontinu ed, Routine famotidine Yes 20mg 20 mg, Unive rs (PEPCID AC) 04-06 Oral, BID, it y of tablet 20 14:00: First dose [place] mg 00 on [facility] Medical 04/06/20 at Branch 0800, Until Discontinu ed, MADDIE metoprolol 2020- No 100mg 100 mg, Un [place] tartrate 04-06 Oral, BID, ity of (LOPRESSOR) 14:00: 02:59 First dose [place] tablet 100 00 :04 on [facility] Medical mg 04/06/20 at Branch 0800, Until Discontinu [...] 1 [place] mg 00 :00 dose, [facility] 04/06/20 at Branch 0200, MADDIE traMADoL Yes 100mg 100 mg, Unive rs (ULTRAM) 04-06 Oral, ity of tablet 100 06:52: Q8HPRN, [place] mg 53 Starting Medical [facility] Branch 04/06/20 at 0052, Until Discontinu ed, Routine, Pain (scale 7-10) LORazepam 2020- No 1mg 1 mg, Univer s (ATIVAN) 04-06 Oral, ity of tablet 1 mg 04:30: 05:39 ONCE, 1 [place] 00 :00 dose, Fri Medical 04/05/20 at Branch 2230, MADDIE ondansetron 2020- No 4mg 4 mg, Univ ers (ZOFRAN-ODT 1-16 -16 Oral, ity of ) 03:00: 02:10 ONCE, 1 [place] disintegrat 00 :00 dose, Fri Med ical ing tablet 04/05/20 at [facility] 4 mg 2100, Routine traMADoL 2020-0 Yes 50mg 50 mg, Univers (ULTRAM) 1-16 Oral, ity of tablet 50 01:59: Q6HPRN, [place] mg 28 Starting Medical Fri Branch 04/05/20 at 1959, Until Discontinu ed, Routine, Pain (scale 4-6) dicyclomine 2019-03 Yes 20mg 20 mg, [facility] ers (BENTYL) 0-06 Intramuscu ity o f injection 13:00: lar, QID, [place] as 20 mg 00 First dose Medical on Count Includes [facility] Branch 12/26/19 at 0800, Until Discontinu ed, Routine FENTanyl PF 2019-03 2020- No 100ug 100 mcg, Univers (SUBLIMAZE 012-25 Intramuscu it y of (PF)) 08:45: 07:47 lar, ONCE, [place] injection 00 :00 1 dose, Medical 100 mcg Count Includes [facility] Branch 12/26/19 at 0345, Routine famotidine 2019-03 2020- No 20mg 20 mg, [facility] ers (PEPCID 0-06 - Slow IV ity of (PF)) 07:45: 06:43 Push, [place] injection 00 :00 ONCE, 1 Medical 20 mg dose, Count Includes [facility] Branch 12/26/19 at 0245, MADDIE maalox:diph 2019-03 2020- No 15mL 15 mL, Uni vers enhydrAMINE 0-06 10-06 Oral, ity of :lidocaine 07:45: 06:42 ONCE, 1 [place] 2 % viscous 00 :00 dose, Med ical 1:1:1 12/26/19 at [place] (FIRST-MOUT 0245, HWASH BLM) Routine oral suspension 15 mL sucralfate 2019-03 Yes [id number] 1g Take 1 Univers 1 gram 0-06 tablet by ity of tablet 00:00: mouth [place] 00 before Medical meals and Branch at bedtime. sucralfate 2019-03 Yes [id number] 1g Take 1 Univers 1 gram 0-06 tablet by ity of tablet 00:00: mouth [place] 00 before Medical meals and Branch at bedtime. sucralfate 2020- Yes [id number] 1g Take 1 Univers 1 gram 0-06 tablet by ity of tablet 00:00: mouth [place] 00 before Medical meals and Branch at bedtime. sucralfate 2020-1 Yes [id number] 1g Take 1 Univers 1 gram 0-06 tablet by ity of tablet 00:00: mouth [place] 00 before Medical meals and Branch at bedtime. sucralfate 2020-1 Yes [id number] 1g Take 1 Univers 1 gram 0-06 tablet by ity of tablet 00:00: mouth [place] 00 before Medical meals and Branch at bedtime. sucralfate 2020- Yes [id number] 1g Take 1 Univers 1 gram 0-06 tablet by ity of tablet 00:00: mouth [place] 00 before Medical meals and Branch at bedtime. sucralfate 2020- Yes [id number] 1g Take 1 Univers 1 gram 0-06 tablet by ity of tablet 00:00: mouth [place] 00 before Medical meals and Branch at bedtime. sucralfate 2020- Yes [id number] 1g Take 1 Univers 1 gram 0-06 tablet by ity of tablet 00:00: mouth [place] 00 before Medical meals and Branch at bedtime. sucralfate 2020- Yes [id number] 1g Take 1 Univers 1 gram 0-06 tablet by ity of tablet 00:00: mouth [place] 00 before Medical meals and Branch at bedtime. sucralfate 2020-2020- No [id number] 1g Take 1 Univers 1 gram 0-06 [...] every 8 (eight) hours as needed. ondansetron 2019- Yes 4mg Take 1 [facility] [...] MP25 0-04 by mouth. [place] 23:07: [address] traMADoL 2019-03 Yes 50mg Take [address] [facility] 100 mg MP25 0-04 by mouth. [place] 23:07: [address] traMADoL 2019-03 Yes 50mg Take [address] [facility] 100 mg MP25 0-04 by mouth. [place] 23:07: [address] traMADoL 2019-03 Yes 50mg Take [address] 100 mg MP25 0-04 by mouth. [place] 23:07: [address] traMADoL 2019-03 Yes 50mg Take [address] 100 mg MP25 0-04 by mouth. [place] 23:07: [address] amLODIPine 2019-03 Yes 7.5mg 7.5 mg, [...] 37.5 mg last Branch modificati on) on 12/20/19 at 2000, Until Discontinu ed, Routine amLODIPine 2019-03 2020- No [id number] 7.5mg Take 1.5 Univers 5 mg tablet 0-01 10-16 tablets by i ty of 00:00: 04:59 mouth [place] 00 :00 daily for Medical 14 days. Branch aspirin 81 2019- 2020- No [id number] 81mg Take 1 [facility] mg chewable 0-01 10-16 tablet by it y of tablet 00:00: 04:59 mouth [place] 00 :00 daily for Medical 14 days. Branch amLODIPine 2019- 2020- No [id number] 7.5mg Take 1.5 [facility] 5 mg tablet 0-01 10-16 tablets by i ty of 00:00: 04:59 mouth [place] 00 :00 daily for Medical 14 days. Branch aspirin 81 2019- 2020- No [id number] 81mg Take 1 [facility] mg chewable 0-01 10-16 tablet by it y of tablet 00:00: 04:59 mouth [place] 00 :00 daily for Medical 14 days. Branch amLODIPine 2019- 2020- No [id number] 7.5mg Take 1.5 [facility] 5 mg tablet 0-01 10-16 tablets by i ty of 00:00: 04:59 mouth [place] 00 :00 daily for Medical 14 days. Branch aspirin 81 2019- 2020- No [id number] 81mg Take 1 [facility] mg chewable 0-01 10-16 tablet by it y of tablet 00:00: 04:59 mouth [place] 00 :00 daily for Medical 14 days. Branch amLODIPine 2019- 2020- No [id number] 7.5mg Take 1.5 [facility] 5 mg tablet 0-01 10-16 tablets by i ty of 00:00: 04:59 mouth [place] 00 :00 daily for Medical 14 days. Branch aspirin 81 2019- 2020- No [id number] 81mg Take 1 [facility] mg chewable 0-01 10-16 tablet by it y of tablet 00:00: 04:59 mouth [place] 00 :00 daily for Medical 14 days. Branch amLODIPine 2019- 2020- No [id number] 7.5mg Take 1.5 [facility] 5 mg tablet 0-01 10-16 tablets by i ty of 00:00: 04:59 mouth [place] 00 :00 daily for Medical 14 days. Branch aspirin 81 2019- 2020- No [id number] 81mg Take 1 [facility] mg chewable 0-01 10-16 tablet by it y of tablet 00:00: 04:59 mouth [place] 00 :00 daily for Medical 14 days. Branch amLODIPine 2019-03- No [id number] 7.5mg Take 1.5 [facility] 5 mg tablet 0-01 10-16 tablets by i ty of 00:00: 04:59 mouth [place] 00 :00 daily for Medical 14 days. Branch aspirin 81 2019- 2020- No [id number] 81mg Take 1 [facility] mg chewable 0-01 10-16 tablet by it y of tablet 00:00: 04:59 mouth [place] 00 :00 daily for Medical 14 days. Branch amLODIPine 2019-03- No [id number] 7.5mg Take 1.5 [facility] 5 mg tablet 0-01 10-16 tablets by i ty of 00:00: 04:59 mouth [place] 00 :00 daily for Medical 14 days. Branch aspirin 81 2019-03- No [id number] 81mg Take 1 [facility] mg chewable 0-01 10-16 tablet by it y of tablet 00:00: 04:59 mouth [place] 00 :00 daily for Medical 14 days. Branch valsartan 2019-03- No [id number] 40mg Take 1 U nivers 40 mg 0-01 09-30 tablet by ity of tablet 00:00: 00:00 mouth [place] 00 :00 daily for Medical 14 days. Branch traMADol 2020-0 Yes 50mg Take 50 mg Uni vers 100 mg 9-30 by mouth 3 ity of capsule 23:20: ([facility]) [place] 23 times Medical daily. Branch traMADol 2020-0 Yes 50mg Take 50 mg Uni vers 100 mg 9-30 by mouth 3 ity of capsule 23:20: ([facility]) [place] 23 times Medical daily. Branch traMADol 2020-0 Yes 50mg Take 50 mg Uni vers 100 mg 9-30 by mouth 3 ity of capsule 23:20: (three) [place] 23 times Medical daily. Branch traMADol 2020-0 Yes 50mg Take 50 mg Uni vers 100 mg 9-30 by mouth 3 ity of capsule 23:20: (three) [place] 23 times Medical daily. Branch traMADol 2020-0 Yes 50mg Take 50 mg Uni vers 100 mg 9-30 by mouth 3 ity of capsule 23:20: (three) [place] 23 times Medical daily. Branch traMADol 2020-0 Yes 50mg Take 50 mg Uni vers 100 mg 9-30 by mouth 3 ity of capsule 23:20: (three) [place] 23 times Medical daily. Branch traMADol 2020-0 Yes 50mg Take 50 mg Uni vers 100 mg 9-30 by mouth 3 ity of capsule 23:20: (three) [place] 23 times Medical daily. Branch traMADol 2020-0 Yes 50mg Take 50 mg Uni vers 100 mg 9-30 by mouth 3 ity of capsule 23:20: (three) [place] 23 times Medical daily. Branch traMADol 2020-0 Yes 50mg Take 50 mg Uni vers 100 mg 9-30 by mouth 3 ity of capsule 23:20: (three) [place] 23 times Medical daily. Branch traMADol 2020-0 Yes 50mg Take 50 mg Uni vers 100 mg 9-30 by mouth 3 ity of capsule 23:20: (three) [place] 23 times Medical daily. Branch traMADol 2020-0 Yes 50mg Take 50 mg Uni vers 100 mg 9-30 by mouth 3 ity of capsule 23:20: (three) [place] 23 times Medical daily. Branch traMADol 2020-0 Yes 50mg Take 50 mg Uni vers 100 mg 9-30 by mouth 3 ity of capsule 23:20: (three) [place] 23 times Medical daily. Branch traMADol 2020-0 Yes 50mg Take 50 mg Uni vers 100 mg 9-30 by mouth 3 ity of capsule 23:20: (three) [place] 23 times Medical daily. Branch azilsartan 2019-0 2020- No Take by Uni vers med-chlorth 12-19 mouth ity of alidone 20:47: 00:00 daily. [place] (EDARBYCLOR 40 :00 Medical ) 40-12.5 Branch mg Tab dapaglifloz 0 2020- No Take by Un rosanna in 12-19 mouth ity of (FARXIGA) 20:47: 00:00 daily. [place] 10 mg 40 :00 Medical tablet Branch famotidine 0 2020- No 40mg 40 mg, Univ ers (PEPCID 12-19 Slow IV ity of (PF)) 19:30: 21:29 Push, [place] injection 00 :00 ONCE, 1 Medical 40 mg dose, Wed Branch 12/20/19 at 1430, Routine pantoprazol 2019-0 2020- No 40mg 40 mg, IV Univers e 12-19 Push, ity of (PROTONIX) 19:30: 21:31 ONCE, 1 [place] 40 mg in 00 :00 dose, Wed Medica l NaCl 0.9% 12/20/19 at Bran ch (NS) 20 mL 1430, 20 syringe mL NaCl 0.9% 2020-0 2020- No 250mL at 50 Unive rs (NS) IV 12-19 mL/hr, IV ity of infusion 15:00: 14:03 Infusion, [place] as 250 mL 00 :00 ONCE, 1 Medical dose, Wed Branch 12/20/19 at 1000, Routine metoprolol 2020-0 2020- No 37.5mg 37.5 mg, Univers tartrate 12-19 [...] 2 0800, g Routine azilsartan 2020-0 Yes [id number] 1{tbl} Take 1 [facility] med-chlorth 9-30 tablet by ity of alidone 00:00: mouth [place] (EDARBYCLOR 00 daily. Medica l ) 40-12.5 Branch mg Tab azilsartan 2020-0 Yes [id number] 1{tbl} Take 1 [facility] med-chlorth 9-30 tablet by ity of alidone 00:00: mouth [place] (EDARBYCLOR 00 daily. Medica l ) 40-12.5 Branch mg Tab azilsartan 2020-0 Yes [id number] 1{tbl} Take 1 [facility] med-chlorth 9-30 tablet by ity of alidone 00:00: mouth [place] (EDARBYCLOR 00 daily. Medica l ) 40-12.5 Branch mg Tab azilsartan 2020-0 Yes [id number] 1{tbl} Take 1 [facility] med-chlorth 9-30 tablet by ity of alidone 00:00: mouth [place] (EDARBYCL[facility] 00 daily. Medica l ) 40-12.5 Branch mg Tab azilsartan 2020-0 Yes [id number] 1{tbl} Take 1 [facility] med-chlorth 9-30 tablet by ity of alidone 00:00: mouth [place] (EDARBYCLOR 00 daily. Medica l ) 40-12.5 Branch mg Tab azilsartan 2020-0 Yes [id number] 1{tbl} Take 1 [facility] med-chlorth 9-30 tablet by ity of alidone 00:00: mouth [place] (EDARBYCL[facility] 00 daily. Medica l ) 40-12.5 Branch mg Tab azilsartan 2020-0 Yes [id number] 1{tbl} Take 1 [facility] med-chlorth 9-30 tablet by ity of alidone 00:00: mouth [place] (EDARBYCL[facility] 00 daily. Medica l ) 40-12.5 Branch mg Tab azilsartan 2020-0 Yes [id number] 1{tbl} Take 1 [facility] med-chlorth 9-30 tablet by ity of alidone 00:00: mouth [place] (EDAR[facility]CL[facility] 00 daily. Medica l ) 40-12.5 Branch mg Tab azilsartan 2020-0 Yes [id number] 1{tbl} Take 1 [facility] med-chlorth 9-30 tablet by ity of alidone 00:00: mouth [place] (EDARBYCL[facility] 00 daily. Medica l ) 40-12.5 Branch mg Tab azilsartan 2020-0 Yes [id number] 1{tbl} Take 1 [facility] med-chlorth 9-30 tablet by ity of alidone 00:00: mouth [place] ([facility]CL[facility] 00 daily. Medica l ) 40-12.5 Branch mg Tab azilsartan 2020-0 Yes [id number] 1{tbl} Take 1 [facility] med-chlorth 9-30 tablet by ity of alidone 00:00: mouth [place] (ED[facility]CL[facility] 00 daily. Medica l ) 40-12.5 Branch mg Tab azilsartan 2020-0 Yes [id number] 1{tbl} Take 1 [facility] med-chlorth 9-30 tablet by ity of alidone 00:00: mouth [place] ([facility] 00 daily. Medica l ) 40-12.5 Branch mg Tab azilsartan 2020-0 Yes [id number] 1{tbl} Take 1 [facility] med-chlorth 9-30 tablet by ity of alidone 00:00: mouth [place] (EDAR[facility]CL[facility] 00 daily. Medica l ) 40-12.5 Branch mg Tab azilsartan 2020- No [id number] 1{tbl} Take 1 [facility] med-chlorth 9-30 05-07 tablet by it y of alidone 00:00: 00:00 mouth [place] (EDARBYCL[facility] 00 :00 daily. Medica l ) 40-12.5 Branch mg Tab apixaban 5 2019- No [id number] 5mg Take [...] by ity of 00:00: 05:59 mouth 2 [place] 00 :00 (two) Medical times Branch daily [...] by ity of 00:00: 05:59 mouth 2 [place] 00 :00 (two) Medical times Branch daily [...] a blood clot in the lungs escitalopra 2019-2019- No [id number] 20mg Take 1 [facility] m oxalate 9-30 10-15 tablet by ity of 20 mg 00:00: 04:59 mouth [place] tablet 00 :00 daily for Medical 14 days. Branch furosemide 2020- No [id number] 40mg Take 1 [facility] 40 mg 9-30 10-15 tablet by ity of tablet 00:00: 04:59 mouth [place] 00 :00 daily for Medical 14 days. Branch metoprolol 2020- No [id number] 37.5mg Take 1.5 [facility] tartrate 25 9-30 10-15 tablets by i ty of mg tablet 00:00: 04:59 mouth 2 [place] 00 :[place] (two) Medical times Branch daily for 14 days. QUEtiapine 2020- No [id number] 300mg Take 3 [facility] 100 mg 9-30 10-15 tablets by ity of tablet 00:00: 04:59 mouth at [place] 00 :00 bedtime Medical for 14 Branch days. QUEtiapine 2019- No [id number] 50mg Take 1 [facility] 50 mg 9-30 10-15 tablet by ity of tablet 00:00: 04:59 mouth [place] 00 :00 every Medical morning Branch for 14 days. atorvastati 2019- No [id number] 80mg Take 1 [facility] n 80 mg 9-30 10-15 tablet by ity of tablet 00:00: 04:59 mouth at [place] 00 :00 bedtime Medical for 14 Branch days. dapaglifloz 2020- No [id number] 10mg Take 1 [facility] in 9-30 10-15 tablet by ity of (FARXIGA) 00:00: 04:59 mouth [place] 10 mg 00 :00 daily for Medical tablet 14 days. Branch montelukast 2020- No [id number] 10mg Take 1 [facility] 10 mg 9-30 10-15 tablet by ity of tablet 00:00: 04:59 mouth [place] 00 :00 daily for Medical 14 days. Branch atomoxetine 2020- No [id number] 80mg Take 1 [facility] 80 mg 9-30 10-15 capsule by ity of capsule 00:00: 04:59 mouth [place] 00 :00 daily for Medical 14 days. Branch escitalopra 2020- No [id number] 20mg Take 1 [facility] m oxalate 9-30 10-15 tablet by ity of 20 mg 00:00: 04:59 mouth [place] tablet 00 :00 daily for Medical 14 days. Branch furosemide 2020- No [id number] 40mg Take 1 [facility] 40 mg 9-30 10-15 tablet by ity of tablet 00:00: 04:59 mouth [place] 00 :00 daily for Medical 14 days. Branch metoprolol 2020- No [id number] 37.5mg Take 1.5 [facility] tartrate 25 9-30 10-15 tablets by i ty of mg tablet 00:00: 04:59 mouth 2 [place] 00 :00 (two) Medical times Branch daily for 14 days. QUEtiapine 2019- No [id number] 300mg Take 3 [facility] 100 mg 9-30 10-15 tablets by ity of tablet 00:00: 04:59 mouth at [place] 00 :00 bedtime Medical for 14 Branch days. QUEtiapine 2019- No [id number] 50mg Take 1 [facility] 50 mg 9-30 10-15 tablet by ity of tablet 00:00: 04:59 mouth [place] 00 :00 every Medical morning Branch for 14 days. atorvastati 2019-2019- No [id number] 80mg Take 1 [facility] n 80 mg 9-30 10-15 tablet by ity of tablet 00:00: 04:59 mouth at [place] 00 :00 bedtime Medical for 14 Branch days. dapaglifloz 2019-2019- No [id number] 10mg Take 1 [facility] in 9-30 10-15 tablet by ity of (FARXIGA) 00:00: 04:59 mouth [place] 10 mg 00 :00 daily for Medical tablet 14 days. Branch montelukast 2019- 2020- No [id number] 10mg Take 1 [facility] 10 mg 9-30 10-15 tablet by ity of tablet 00:00: 04:59 mouth [place] 00 :00 daily for Medical 14 days. Branch atomoxetine 2020- No [id number] 80mg Take 1 [facility] 80 mg 9-30 10-15 capsule by ity of capsule 00:00: 04:59 mouth [place] 00 :00 daily for Medical 14 days. Branch escitalopra 2020- No [id number] 20mg Take 1 [facility] m oxalate 9-30 10-15 tablet by ity of 20 mg 00:00: 04:59 mouth [place] tablet 00 :00 daily for Medical 14 days. Branch furosemide 2019- No [id number] 40mg Take 1 [facility] 40 mg 9-30 10-15 tablet by ity of tablet 00:00: 04:59 mouth [place] 00 :00 daily for Medical 14 days. Branch metoprolol 2020- No [id number] 37.5mg Take 1.5 [facility] tartrate 25 9-30 10-15 tablets by i ty of mg tablet 00:00: 04:59 mouth 2 [place] 00 :00 (two) Medical times Branch daily for 14 days. QUEtiapine 2019- No [id number] 300mg Take 3 [facility] 100 mg 9-30 10-15 tablets by ity of tablet 00:00: 04:59 mouth at [place] 00 :00 bedtime Medical for 14 Branch days. QUEtiapine 2019- No [id number] 50mg Take 1 [facility] 50 mg 9-30 10-15 tablet by ity of tablet 00:00: 04:59 mouth [place] 00 :00 every Medical morning Branch for 14 days. atorvastati 2019-2019- No [id number] 80mg Take 1 [facility] n 80 mg 9-30 10-15 tablet by ity of tablet 00:00: 04:59 mouth at [place] 00 :00 bedtime Medical for 14 Branch days. dapaglifloz 2019- No [id number] 10mg Take 1 [facility] in 9-30 10-15 tablet by ity of (FARXIGA) 00:00: 04:59 mouth [place] 10 mg 00 :00 daily for Medical tablet 14 days. Branch montelukast 2019- No [id number] 10mg Take 1 [facility] 10 mg 9-30 10-15 tablet by ity of tablet 00:00: 04:59 mouth [place] 00 :00 daily for Medical 14 days. Branch atomoxetine 2020- No [id number] 80mg Take 1 [facility] 80 mg 9-30 10-15 capsule by ity of capsule 00:00: 04:59 mouth [place] 00 :00 daily for Medical 14 days. Branch escitalopra 2020- No [id number] 20mg Take 1 [facility] m oxalate 9-30 10-15 tablet by ity of 20 mg 00:00: 04:59 mouth [place] tablet 00 :00 daily for Medical 14 days. Branch furosemide 2020- No [id number] 40mg Take 1 [facility] 40 mg 9-30 10-15 tablet by ity of tablet 00:00: 04:59 mouth [place] 00 :00 daily for Medical 14 days. Branch metoprolol 2020- No [id number] 37.5mg Take 1.5 [facility] tartrate 25 9-30 10-15 tablets by i ty of mg tablet 00:00: 04:59 mouth 2 [place] 00 :00 (two) Medical times Branch daily for 14 days. QUEtiapine 2019- 2020- No [id number] 300mg Take 3 [facility] 100 mg 9-30 10-15 tablets by ity of tablet 00:00: 04:59 mouth at [place] 00 :00 bedtime Medical for 14 Branch days. QUEtiapine 2019- No [id number] 50mg Take 1 [facility] 50 mg 9-30 10-15 tablet by ity of tablet 00:00: 04:59 mouth [place] 00 :00 every Medical morning Branch for 14 days. atorvastati 2019-2019- No [id number] 80mg Take 1 [facility] n 80 mg 9-30 10-15 tablet by ity of tablet 00:00: 04:59 mouth at [place] 00 :00 bedtime Medical for 14 Branch days. dapaglifloz 2019- No [id number] 10mg Take 1 [facility] in 9-30 10-15 tablet by ity of (FARXIGA) 00:00: 04:59 mouth [place] 10 mg 00 :00 daily for Medical tablet 14 days. Branch montelukast 2019- 2020- No [id number] 10mg Take 1 [facility] 10 mg 9-30 10-15 tablet by ity of tablet 00:00: 04:59 mouth [place] 00 :00 daily for Medical 14 days. Branch atomoxetine 2020- No [id number] 80mg Take 1 [facility] 80 mg 9-30 10-15 capsule by ity of capsule 00:00: 04:59 mouth [place] 00 :00 daily for Medical 14 days. Branch escitalopra 2019- 2020- No [id number] 20mg Take 1 [facility] m oxalate 9-30 10-15 tablet by ity of 20 mg 00:00: 04:59 mouth [place] tablet 00 :00 daily for Medical 14 days. Branch furosemide 2019- 2020- No [id number] 40mg Take 1 [facility] 40 mg 9-30 10-15 tablet by ity of tablet 00:00: 04:59 mouth [place] 00 :00 daily for Medical 14 days. Branch metoprolol 2019- No [id number] 37.5mg Take 1.5 [facility] tartrate 25 9-30 10-15 tablets by i ty of mg tablet 00:00: 04:59 mouth 2 [place] 00 :00 (two) Medical times Branch daily for 14 days. QUEtiapine 2019- No [id number] 300mg Take 3 [facility] 100 mg 9-30 10-15 tablets by ity of tablet 00:00: 04:59 mouth at [place] 00 :00 bedtime Medical for 14 Branch days. QUEtiapine 2019- No [id number] 50mg Take 1 [facility] 50 mg 9-30 10-15 tablet by ity of tablet 00:00: 04:59 mouth [place] 00 :00 every Medical morning Branch for 14 days. atorvastati 2019- 2020- No [id number] 80mg Take 1 [facility] n 80 mg 9-30 10-15 tablet by ity of tablet 00:00: 04:59 mouth at [place] 00 :00 bedtime Medical for 14 Branch days. dapaglifloz 2019-2019- No [id number] 10mg Take 1 [facility] in 9-30 10-15 tablet by ity of (FARXIGA) 00:00: 04:59 mouth [place] 10 mg 00 :00 daily for Medical tablet 14 days. Branch montelukast 2020- No [id number] 10mg Take 1 [facility] 10 mg 9-30 10-15 tablet by ity of tablet 00:00: 04:59 mouth [place] 00 :00 daily for Medical 14 days. Branch atomoxetine 2020- No [id number] 80mg Take 1 [facility] 80 mg 9-30 10-15 capsule by ity of capsule 00:00: 04:59 mouth [place] 00 :00 daily for Medical 14 days. Branch escitalopra 2020- No [id number] 20mg Take 1 [facility] m oxalate 9-30 10-15 tablet by ity of 20 mg 00:00: 04:59 mouth [place] tablet 00 :00 daily for Medical 14 days. Branch furosemide 2020- No [id number] 40mg Take 1 [facility] 40 mg 9-30 10-15 tablet by ity of tablet 00:00: 04:59 mouth [place] 00 :00 daily for Medical 14 days. Branch metoprolol 2020- No [id number] 37.5mg Take 1.5 [facility] tartrate 25 9-30 10-15 tablets by i ty of mg tablet 00:00: 04:59 mouth 2 [place] 00 :00 (two) Medical times Branch daily for 14 days. QUEtiapine 2019- 2020- No [id number] 300mg Take 3 [facility] 100 mg 9-30 10-15 tablets by ity of tablet 00:00: 04:59 mouth at [place] 00 :00 bedtime Medical for 14 Branch days. QUEtiapine 2019- 2020- No [id number] 50mg Take 1 [facility] 50 mg 9-30 10-15 tablet by ity of tablet 00:00: 04:59 mouth [place] 00 :00 every Medical morning Branch for 14 days. atorvastati 2019- 2020- No [id number] 80mg Take 1 [facility] n 80 mg 9-30 10-15 tablet by ity of tablet 00:00: 04:59 mouth at [place] 00 :00 bedtime Medical for 14 Branch days. dapaglifloz 2019-2019- No [id number] 10mg Take 1 [facility] in 9-30 10-15 tablet by ity of (FARXIGA) 00:00: 04:59 mouth [place] 10 mg 00 :00 daily for Medical tablet 14 days. Branch montelukast 2020- No [id number] 10mg Take 1 [facility] 10 mg 9-30 10-15 tablet by ity of tablet 00:00: 04:59 mouth [place] 00 :00 daily for Medical 14 days. Branch atomoxetine 2020- No [id number] 80mg Take 1 [facility] 80 mg 9-30 10-15 capsule by ity of capsule 00:00: 04:59 mouth [place] 00 :00 daily for Medical 14 days. Branch escitalopra 2019- 2020- No [id number] 20mg Take 1 [facility] m oxalate 9-30 10-15 tablet by ity of 20 mg 00:00: 04:59 mouth [place] tablet 00 :00 daily for Medical 14 days. Branch furosemide 2019- 2020- No [id number] 40mg Take 1 [facility] 40 mg 9-30 10-15 tablet by ity of tablet 00:00: 04:59 mouth [place] 00 :00 daily for Medical 14 days. Branch metoprolol 2020- No [id number] 37.5mg Take 1.5 [facility] tartrate 25 9-30 10-15 tablets by i ty of mg tablet 00:00: 04:59 mouth 2 [place] 00 :00 (two) Medical times Branch daily for 14 days. QUEtiapine 2020-0 2020- No [id number] 300mg Take 3 [facility] 100 mg 9-30 10-15 tablets by ity of tablet 00:00: 04:59 mouth at [place] 00 :00 bedtime Medical for 14 Branch days. QUEtiapine 2020-0 2020- No [id number] 50mg Take 1 [facility] 50 mg 9-30 10-15 tablet by ity of tablet 00:00: 04:59 mouth [place] 00 :00 every Medical morning Branch for 14 days. atorvastati 2020-0 2020- No [id number] 80mg Take 1 [facility] n 80 mg 9-30 10-15 tablet by ity of tablet 00:00: 04:59 mouth at [place] 00 :00 bedtime Medical for 14 Branch days. dapaglifloz 2020-0 2020- No [id number] 10mg Take 1 [facility] in 9-30 10-15 tablet by ity of (FARXIGA) 00:00: 04:59 mouth [place] 10 mg 00 :00 daily for Medical tablet 14 days. Branch montelukast 2020-0 2020- No [id number] 10mg Take 1 [facility] 10 mg 9-30 10-15 tablet by ity of tablet 00:00: 04:59 mouth [place] 00 :00 daily for Medical 14 days. Branch atomoxetine 2020-0 2020- No [id number] 80mg Take 1 [facility] 80 mg 9-30 10-15 capsule by ity of capsule 00:00: 04:59 mouth [place] 00 :00 daily for Medical 14 days. Branch vancomycin 2020-0 2020- No [id number] 125mg Take 2.5 [facility] 50 mg/mL 9-30 10-09 mL by ity of oral 00:00: 04:59 mouth 4 [place] solution 00 :00 (four) Medical times Branch daily for 8 days. vancomycin 2020-0 2020- No [id number] 125mg Take 2.5 [facility] 50 mg/mL 9-30 10-09 mL by ity of oral 00:00: 04:59 mouth 4 [place] solution 00 :00 (four) Medical times Branch daily for 8 days. vancomycin 2020-0 2020- No [id number] 125mg Take 2.5 [facility] 50 mg/mL 9-30 10-09 mL by ity of oral 00:00: 04:59 mouth 4 [place] solution 00 :00 (four) Medical times Branch daily for 8 days. vancomycin 2020-0 2020- No [id number] 125mg Take 2.5 [facility] 50 mg/mL 12-19-09 mL by ity of oral 00:00: 04:59 mouth 4 [place] solution 00 :00 (four) Medical times [place] daily for 8 days. vancomycin 2020-0 2020- No [id number] 125mg Take 2.5 [facility] 50 mg/mL 12-19 10-09 mL by ity of oral 00:00: 04:59 mouth 4 [place] solution 00 :00 (four) Medical times [place] daily for 8 days. proMETHazin 2020-0 Yes 12.5mg 12.5 mg, Univers e 12-18 Oral, ity of (PHENERGAN) 19:29: Q4HPRN, [place] tablet 12.5 27 Starting Medi carol mg [facility] 12/19/19 at 1429, Until Discontinu ed, Routine, Nausea and Vomiting (N/V) maalox:diph 2019-0 2020- No 15mL 15 mL, Uni vers enhydrAMINE 12-18 Oral, ity of :lidocaine 19:02: 19:34 ONCE, 1 [place] 2 % viscous 00 :00 dose, Count Includes [facility] Med ical 1:1:1 12/19/19 at [place] (FIRST-MOUT 1415, HWASH BLM) Routine oral suspension 15 mL lidocaine 2019-0 2020- No 1{patch 1 Patch, Univers (LIDODERM) 12-18 } Topical, ity of 5 % (700 19:01: 07:34 Administer [place] mg/patch) 00 :00 over 12 Medical patch 1 Hours, [place] Patch ONCE, 1 dose, Count Includes [facility] 12/19/19 at 1415, Routine iohexol 2019-0 2020- No 100mL 100 mL, Unive rs (OMNIPAQUE 12-17 Intravenou it y of 350 18:30: 18:30 s, ONCE, 1 [place] BULK-100 00 :00 dose, Mon Medica l mL) 12/18/19 at [place] injection 1330, 100 mL Routine valsartan 2020-0 Yes 40mg 40 mg, Univer s (DIOVAN) 12-17 Oral, ity of tablet 40 14:00: DAILY, [place] mg 00 First dose Medical on [facility] 12/18/19 at 0900, Until Discontinu ed, Routine furosemide 2020-0 Yes 40mg 40 mg, Unive rs (LASIX) 12-17 Oral, ity of tablet 40 14:00: DAILY, [place] mg 00 First dose Medical on [facility] 12/18/19 at 0900, Until Discontinu ed, Routine QUEtiapine 2020-0 Yes 50mg 50 mg, Unive rs (SEROQUEL) 12-17 Oral, QAM, ity of tablet 50 14:00: First dose [place] mg 00 on [facility] 12/18/19 at Branch 0900, Until Discontinu ed, Routine montelukast 2020-0 Yes 10mg 10 mg, [facility] ers (SINGULAIR) 12-17 Oral, ity of tablet 10 14:00: DAILY, [place] mg 00 First dose Medical on [facility] 12/18/19 at 0900, Until Discontinu ed, Routine escitalopra 2020-0 Yes 20mg 20 mg, [facility] ers m oxalate 12-17 Oral, ity of (LEXAPRO) 14:00: DAILY, [place] tablet 20 00 First dose Medi carol mg on [facility] 12/18/19 at 0900, Until Discontinu ed, Routine aspirin 2020-0 Yes 81mg 81 mg, Univers chewable 12-17 Oral, ity of tablet 81 14:00: DAILY, [place] mg 00 First dose Medical on [facility] 12/18/19 at 0900, Until Discontinu ed, Routine amLODIPine 2020-0 2020- No 10mg 10 mg, [facility] ers (NORVASC) 12-1730 Oral, ity of tablet 10 14:00: 18:26 DAILY, [place] mg 00 :48 First dose Medical on [facility] 12/18/19 at 0900, Until Discontinu ed, Routine vancomycin 2020-0 Yes 125mg 125 mg, Uni vers (FIRVANQ) 12-17 Oral, QID, ity of 50 mg/mL 13:00: First dose [place] oral 00 (after Medical solution last Branch 125 mg modificati on) on [facility] 12/18/19 at 0800, Until Discontinu ed, Routine
Reason for Anti-Infec tive: Documented Infection< br>Documen kenroy Infection Site: Abdominal< br>Duratio n of Therapy: 10 days Sliding 2020-0 Yes Subcutaneo [facility] ers Scale 12-17 us, TID ity of Insulin - 13:00: MEALS+HS, [place] as Lispro 00 First dose Medical (HumaLOG) + on [facility] Branch Fsbg 12/18/19 at Testing 0800, Until Discontinu ed, Routine apixaban 2019-0 Yes 1291 5mg 5 mg, Univers (ELIQUIS) 12-17 Oral, BID, ity of tablet 5 mg 13:00: First dose [place] [address] [facility] Medical 12/18/19 at Branch 0800, Until Discontinu ed, Routine magnesium 2019-0 2020- No 4000mg 4,000 mg, Univers sulfate in 12-17 IV ity of water 4 12:15: 13:18 Infusion, [place] gram/50 mL 00 :00 ONCE, 1 Medica l (8 %) 4,000 dose, [facility] Bra nch mg 12/18/19 at piggyback 0715 traMADoL 2019-0 2020- No 100mg 100 mg, Univ ers (ULTRAM) 12-17 Oral, ity of tablet 100 07:10: 13:30 Q6HPRN, 2 [place] mg 46 :00 doses, Medical Starting Branch [facility] 12/18/19 at 0210, Until [facility] 12/18/19 at 0830, Routine, Pain (scale 7-10) metoprolol 2019-0 2020- No 25mg 25 mg, [facility] ers tartrate 12-17 Oral, BID, ity of (LOPRESSOR) 05:00: 12:13 First dose [place] tablet 25 00 :37 (after Medical mg last Branch modificati on) on [facility] 12/18/19 at 0000, Until Discontinu ed, Routine acetaminoph 2019-0 Yes 1{tbl} 1 tablet, [facility] en-codeine 12-17 Oral, ity of (TYLENOL 04:52: Q6HPRN, [place] #3) 300-30 55 Starting Medic al mg tablet 1 [place] Branch tablet 12/17/19 at 2352, Until Discontinu ed, Routine, Pain (scale 4-6) traMADol 2020-0 Yes 50mg Take 50 mg Uni vers 100 mg 12-17 by mouth 3 ity of capsule 04:52: (three) [place] 14 times Medical daily. Branch traMADol 2020-0 Yes 50mg Take 50 mg Uni vers 100 mg 12-17 by mouth 3 ity of capsule 04:52: (three) [place] 14 times Medical daily. Branch vancomycin 2019-0 2020- No 125mg 125 mg, [facility] [place] (FIRVANQ) 12-17 Oral, QID, ity of 50 mg/mL 03:15: 12:03 First dose [place] oral 00 :35 on [facility] 12/17/19 at [facility] h 125 mg 2215, Until Discontinu ed, Routine
Reason for Anti-Infec tive: Documented Infection< br>Documen kenroy Infection Site: Abdominal< br>Duratio n of Therapy: 7 days metroNIDAZO 2020-0 2020- No 500mg 500 mg, U nivers LE (FLAGYL) 12-17 Oral, Q8H, i ty of tablet 500 03:00: 03:09 9 doses, [place] mg 00 :07 First dose Medical on [facility] 12/17/19 at 2200, Last dose on Wed12/20/19 at 1400, Routine
Reason for Anti-Infec tive: Documented Infection< br>Documen kenroy Infection Site: Abdominal< br>Duratio n of Therapy: 7 days maalox:diph 2020-0 2020- No 15mL 15 mL, Uni vers enhydrAMINE 12-17 Oral, ity of :lidocaine 02:50: 05:30 ONCE, 1 [place] as 2 % viscous 00 :00 dose, [facility] ical 1:1:1 12/17/19 at [place] (FIRST-MOUT 2199, HWASH BLM) Routine oral suspension 15 mL glucagon 2020-0 Yes 1mg 1 mg, Univers (GLUCAGEN 12-17 Intramuscu ity of DIAGNOSTIC 02:34: lar, PRN, [place] KIT) 12 Starting Medical injection 1 [facility] mg 12/17/19 at 213, Until Discontinu ed, MADDIE, Blood Glucose < or = 70 mg/dL and patient is unable to swallow or has mental changes. dextrose 50 2020-0 Yes 25mL 25 mL, Univ ers % in water 12-17 Slow IV ity of (D50W) 02:34: Push, PRN, [place] injection 12 Starting Medica l 25 mL [facility] 12/17/19 at 2134, Until Discontinu ed, MADDIE, Blood Glucose < or = 70 mg/dL and patient is unable to swallow or has mental status changes. QUEtiapine 2020-0 Yes 300mg 300 mg, Uni vers (SEROQUEL) 12-17 Oral, QHS, ity of tablet 300 02:15: First dose [place] mg 00 on [facility] 12/17/19 at Branch 2115, Until Discontinu ed, Routine atorvastati 2020-0 Yes 80mg 80 mg, [facility] ers n (LIPITOR) 12-17 Oral, QHS, it y of tablet 80 02:15: First dose [place] mg 00 on [facility] 12/17/19 at Branch 2115, Until Discontinu ed, Routine azilsartan 2020-0 Yes Take by [facility] ers med-chlorth 12-17 mouth ity of alidone 02:02: daily. [place] (EDARBYCLOR 05 Medical ) 40-12.5 Branch mg Tab dapaglifloz 2020-0 Yes Take by Uni vers in 12-17 mouth ity of (FARXIGA) 02:02: daily. [place] 10 mg 05 Medical tablet Branch azilsartan 2020-0 Yes Take by [facility] ers med-chlorth 12-17 mouth ity of alidone 02:02: daily. [place] (EDARBYCLOR 05 Medical ) 40-12.5 Branch mg Tab dapaglifloz 2020-0 Yes Take by Uni vers in 12-17 mouth ity of (FARXIGA) 02:02: daily. [place] 10 mg 05 Medical tablet Branch acetaminoph 2019-0 Yes 650mg 650 mg, Un [place] en 12-17 Oral, ity of (TYLENOL) 02:00: Q6HPRN, [place] tablet 650 06 Starting Medic al mg [facility] 12/17/19 at 2100, Until Discontinu ed, Routine, Pain (scale 1-3) morpHINE 2020-0 2020- No 4mg 4 mg, Slow [facility] [place] injection 4 12-16 IV Push, ity of mg 23:15: 22:08 ONCE, 1 [place] 00 :00 dose, [facility] 12/17/19 at Branch 1815, STAT nitroglycer 2019-0 2020- No .4mg 0.4 mg, [facility] [place] in 12-16 Sublingual ity of (NITROSTAT) 23:00: 02:21 , ONCE, 1 [place] sublingual 00 :00 dose, [facility] carol tablet 0.4 12/17/19 at [place] mg 1800, MADDIE morpHINE 2020-0 2020- No 4mg 4 mg, Slow [place] injection 4 12-16 IV Push, ity of mg 22:00: 21:10 ONCE, 1 [place] 00 :00 dose, [facility] 12/17/19 at Branch 1700, STAT diltiazem 2020-0 2020- No 15mg 15 mg, IV Un [place] (CARDIZEM 12-16 Push, ity of IV) 21:45: 20:35 ONCE, 1 [place] injection 00 :00 dose, [facility] 15 mg 12/17/19 at Branch 1645, STAT
Fa culty member approving Restricted medication : OSITO HOMERO traMADol 2020-0 Yes 50mg Take 50 mg Uni vers 100 mg 9-16 by mouth 3 ity of capsule 20:31: (three) [place] 13 times Medical daily. Branch amLODIPine 2020-0 Yes 10mg Take 1 Unive rs 10 mg 9-16 tablet by ity of tablet 00:00: mouth 00 daily. Medical Branch apixaban 5 2020-0 Yes 1291 5mg Take 1 Unive rs mg tablet 9-16 tablet by ity o f 00:00: mouth 2 00 (two) Medical times Branch daily. Indication s: a clot in the lung aspirin 81 2020-0 Yes [id number] 81mg Take 1 U nivers mg chewable 9-16 tablet by ity of tablet 00:00: mouth 00 daily. Medical Branch atomoxetine 2020-0 Yes 80mg Take 1 Univ ers 80 mg 9-16 capsule by ity of capsule 00:00: mouth [place] 00 daily. Medical Branch atorvastati 2020-0 Yes 80mg Take 1 Univ ers n 80 mg 9-16 tablet by ity of tablet 00:00: mouth at [place] 00 bedtime. Medical Branch metoprolol 2020-0 Yes 25mg Take 1 Unive rs tartrate 25 9-16 tablet by ity of mg tablet 00:00: mouth 2 00 (two) Medical times Branch daily. montelukast 2020-0 Yes 10mg Take 1 Univ ers 10 mg 9-16 tablet by ity of tablet 00:00: mouth [place] 00 daily. Medical Branch QUEtiapine 2020-0 Yes 300mg Take 1 Univ ers 300 mg 9-16 tablet by ity of tablet 00:00: mouth at [place] 00 bedtime. Medical Branch QUEtiapine 2020-0 Yes [...] by ity o f 00:00: mouth 2 [place] 00 (two) Medical times Branch daily. Indication s: a clot in the lung aspirin 81 2020-0 Yes [id number] 81mg Take 1 U nivers mg chewable [...] Medical morning. Branch metroNIDAZO 2020-0 2020- No [id number] 500mg Take 1 Univers LE 500 mg 9-16 10-01 tablet by ity of tablet 00:00: 04:59 mouth [place] 00 :00 every 8 Medical (eight) Branch hours for 14 days. metroNIDAZO 2020-0 2020- No [id number] 500mg Take 1 Univers LE 500 mg 9-16 10-01 tablet by ity of tablet 00:00: 04:59 mouth [place] 00 :00 every 8 Medical (eight) Branch hours for 14 days. amLODIPine 2020-0 2020- No 10mg Take 1 Univ ers 10 mg 12-05 tablet by ity of tablet 00:00: 00:00 mouth [place] 00 :00 daily. Medical Branch apixaban 5 2019-2019- No 1291 5mg Take 1 Univ ers mg tablet 12-05 tablet by ity of 00:00: 00:00 mouth 2 [place] 00 :00 (two) Medical times Branch daily. Indication s: a clot in the lung aspirin 81 2019-2019- No [id number] 81mg Take 1 Univers mg chewable 12-05 tablet by it y of tablet 00:00: 00:00 mouth [place] 00 :00 daily. Medical Branch atomoxetine 2019-2019- No 80mg Take 1 Uni vers 80 mg 12-05 capsule by ity of capsule 00:00: 00:00 mouth [place] 00 :00 daily. Medical Branch atorvastati 2019-2019- No 80mg Take 1 Uni vers n 80 mg 12-05 tablet by ity of tablet 00:00: 00:00 mouth at [place] 00 :00 bedtime. Medical Branch metoprolol 2019-2019- No 25mg Take 1 Univ ers tartrate 25 12-05 tablet by it y of mg tablet 00:00: 00:00 mouth 2 [place] 00 :00 (two) Medical times Branch daily. montelukast 2019-2019- No 10mg Take 1 Uni vers 10 mg 12-05 tablet by ity of tablet 00:00: 00:00 mouth [place] 00 :00 daily. Medical Branch QUEtiapine 2019-0 2020- No 300mg Take 1 Uni vers 300 mg 12-05 tablet by ity of tablet 00:00: 00:00 mouth at [place] 00 :00 bedtime. Medical Branch QUEtiapine 2019-0 2020- No 50mg Take 1 Univ ers 50 mg 12-0530 tablet by ity of tablet 00:00: 00:00 mouth [place] 00 :00 every Medical morning. Branch metroNIDAZO 2019-2019- No [id number] 500mg Take 1 Univers LE 500 mg 12-05 tablet by ity of tablet 00:00: 00:00 mouth [place] 00 :00 every 8 Medical (eight) Branch hours for 14 days. chlorthalid 2019-0 2020- No 25mg Take 1 Uni vers one 25 mg 9-16 09-27 tablet by ity of tablet 00:00: 00:00 [...] 2020-0 Yes 5mg 5 mg, Univers (ELIQUIS) 8-07 Oral, BID, ity of tablet 5 mg 13:00: First dose [place] 00 on Wed Medical 10/27/19 at [place] 0800, Until Discontinu ed, Routine traMADol 2020-0 Yes 50mg Take 50 mg Uni vers 100 mg 8-04 by mouth 3 ity of capsule 01:37: (three) [place] 14 times Medical daily. Branch traMADol 2020-0 Yes 50mg Take 50 mg Uni vers 100 mg 8-04 by mouth 3 ity of capsule 01:37: (three) [place] 14 times Medical daily. Branch traMADol 2020-0 Yes 50mg Take 50 mg Uni vers 100 mg 8-04 by mouth 3 ity of capsule 01:37: (three) [place] 14 times Medical daily. Branch montelukast 2019- No 20mg Take 20 mg Univers 10 mg 10-22 by mouth. ity of tablet 22:19: 00:00 [place] 27 :00 Medical Branch azilsartan 0 2020- No Take by Uni vers med-chlorth 10-22 mouth ity of alidone 20:36: 00:00 daily. [place] (EDARBYCLOR 45 :00 Medical ) 40-12.5 Branch mg Tab potassium 2019- No 20meq Take 20 Uni vers chloride 10 10-22 mEq by ity o f mEq CR 20:36: 00:00 mouth [place] tablet 45 :00 daily. Medical Branch dapaglifloz 2019- No 40mg Take 40 mg Univers in 10-22 by mouth ity of (FARXIGA) 20:36: 00:00 daily. [place] 10 mg 45 :00 Medical tablet Branch apixaban No 5mg Take 5 mg Uni vers (ELIQUIS) 5 10-22 by mouth 2 i ty of mg tablet 20:36: 00:00 (two) [place] 45 :00 times Medical daily. Branch atomoxetine 2019- No 80mg Take 80 mg Univers (STRATTERA) 10-22 by mouth ity of 80 mg 20:36: 00:00 daily. [place] capsule 45 :00 Medical Branch QUEtiapine 2019- No 50mg Take 50 mg Univers (SEROQUEL) 10-22 by mouth ity of 50 mg 20:36: 00:00 every [place] tablet 45 :00 morning. Medical Branch QUEtiapine 2019- No 300mg Take 300 U nivers (SEROQUEL) 10-22 mg by ity of 200 mg 20:36: 00:00 mouth [place] tablet 45 :00 every Medical evening. Branch escitalopra 2020- No 20mg Take 20 mg Univers m oxalate 10-22 by mouth ity o f 20 mg 20:36: 00:00 daily. [place] tablet 45 :00 Medical Branch metoprolol 2019- No 25mg Take 25 mg Univers tartrate 25 8-03 08-03 by mouth ity of mg tablet 20:36: 00:00 daily. [place] 45 :00 Medical Branch furosemide 2020-0 2020- No 40mg Take 40 mg Univers 40 mg 8- 08-03 by mouth ity of tablet 20:36: 00:00 daily. [place] 45 :00 Medical Branch potassium 2020-0 Yes 20meq Take [address] [facility] chloride 8-03 mEq by [facility] (KLOR-CON) 00:00: mouth. Medic al 10 MEQ CR 00 Center tablet potassium 2019-0 Yes 20meq Take [address] [facility] chloride 8-03 mEq by [facility] (KLOR-CON) 00:00: mouth. Medic al 10 MEQ CR 00 Center tablet potassium 2019-0 Yes 20meq Take [address] [facility] chloride 8-03 mEq by [facility] (KLOR-CON) 00:00: mouth. Medic al 10 MEQ CR 00 Center tablet potassium 2019-0 Yes 20meq Take [address] [facility] chloride 8-03 mEq by [facility] (KLOR-CON) 00:00: mouth. Medic al 10 MEQ CR 00 Center tablet furosemide 2019-0 Yes [id number] 40mg Take 1 U nivers 40 mg 8-03 tablet by ity of tablet 00:00: mouth [place] 00 daily. Medical Branch escitalopra 2019-0 Yes [id number] 20mg Take 1 Univers m oxalate 8-03 tablet by ity o f 20 mg 00:00: mouth [place] tablet 00 daily. Medical Branch potassium 2019-0 Yes [id number] 20meq Take 2 U nivers chloride 10 8-03 tablets by it y of mEq CR 00:00: mouth [place] tablet 00 daily. Medical Branch furosemide 2019-0 Yes [id number] 40mg Take 1 U nivers 40 mg 8-03 tablet by ity of tablet 00:00: mouth [place] 00 daily. Medical Branch escitalopra 2020-0 Yes [id number] 20mg Take 1 Univers m oxalate 8-03 tablet by ity o f 20 mg 00:00: mouth [place] tablet 00 daily. Medical Branch potassium 2020-0 Yes [id number] 20meq Take 2 U nivers chloride 10 8-03 tablets by it y of mEq CR 00:00: mouth [place] tablet 00 daily. Medical Branch furosemide 2019-0 Yes [id number] 40mg Take 1 U nivers 40 mg 8-03 tablet by ity of tablet 00:00: mouth [place] 00 daily. Medical Branch escitalopra 2020-0 Yes [id number] 20mg Take 1 Univers m oxalate 8-03 tablet by ity o f 20 mg 00:00: mouth [place] tablet 00 daily. Medical Branch potassium 2020-0 Yes [id number] 20meq Take 2 U nivers chloride 10 8-03 tablets by it y of mEq CR 00:00: mouth [place] tablet 00 daily. Medical Branch furosemide 2020-0 Yes [id number] 40mg Take 1 U nivers 40 mg 8-03 tablet by ity of tablet 00:00: mouth [place] 00 daily. Medical Branch escitalopra 2020-0 Yes [id number] 20mg Take 1 Univers m oxalate 8-03 tablet by ity o f 20 mg 00:00: mouth [place] tablet 00 daily. Medical Branch potassium 2020-0 Yes [id number] 20meq Take 2 U nivers chloride 10 8-03 tablets by it y of mEq CR 00:00: mouth [place] tablet 00 daily. Medical Branch furosemide 2020-0 Yes [id number] 40mg Take 1 U nivers 40 mg 8-03 tablet by ity of tablet 00:00: mouth [place] 00 daily. Medical Branch escitalopra 2020-0 Yes [id number] 20mg Take 1 Univers m oxalate 8-03 tablet by ity o f 20 mg 00:00: mouth [place] tablet 00 daily. Medical Branch potassium 2020-0 Yes [id number] 20meq Take 2 U nivers chloride 10 8-03 tablets by it y of mEq CR 00:00: mouth [place] tablet 00 daily. Medical Branch furosemide 2020-0 Yes [id number] 40mg Take 1 U nivers 40 mg 8-03 tablet by ity of tablet 00:00: mouth [place] 00 daily. Medical Branch escitalopra 2020-0 Yes [id number] 20mg Take 1 Univers m oxalate 8-03 tablet by ity o f 20 mg 00:00: mouth [place] tablet 00 daily. Medical Branch potassium 2020-0 Yes [id number] 20meq Take 2 U nivers chloride 10 8-03 tablets by it y of mEq CR 00:00: mouth [place] tablet 00 daily. Medical Branch potassium 2020-0 Yes [id number] 20meq Take 2 U nivers chloride 10 8-03 tablets by it y of mEq CR 00:00: mouth [place] tablet 00 daily. Medical Branch potassium 2020-0 Yes [id number] 20meq Take 2 U nivers chloride 10 8-03 tablets by it y of mEq CR 00:00: mouth [place] tablet 00 daily. Medical Branch potassium 2020-0 Yes [id number] 20meq Take 2 U nivers chloride 10 8-03 tablets by it y of mEq CR 00:00: mouth [place] tablet 00 daily. [facility] Branch potassium 2020-0 Yes [id number] 20meq Take 2 U nivers chloride 10 8-03 tablets by it y of mEq CR 00:00: mouth [place] tablet 00 daily. [facility] Branch potassium 2020-0 Yes [id number] 20meq Take 2 U nivers chloride 10 8-03 tablets by it y of mEq CR 00:00: mouth [place] tablet 00 daily. [facility] Branch potassium 2020-0 Yes [id number] 20meq Take 2 U nivers chloride 10 8-03 tablets by it y of mEq CR 00:00: mouth [place] tablet 00 daily. [facility] Branch potassium 2020-0 Yes [id number] 20meq Take 2 U nivers chloride 10 8-03 tablets by it y of mEq CR 00:00: mouth [place] tablet 00 daily. [facility] Branch potassium 2020-0 Yes [id number] 20meq Take 2 U nivers chloride 10 8-03 tablets by it y of mEq CR 00:00: mouth [place] tablet 00 daily. [facility] Branch potassium 2020-0 Yes [id number] 20meq Take 2 U nivers chloride 10 8-03 tablets by it y of mEq CR 00:00: mouth [place] tablet 00 daily. [facility] Branch potassium 2020-0 Yes [id number] 20meq Take 2 U nivers chloride 10 8-03 tablets by it y of mEq CR 00:00: mouth [place] tablet 00 daily. [facility] Branch potassium 2020-0 Yes [id number] 20meq Take 2 U nivers chloride 10 8-03 tablets by it y of mEq CR 00:00: mouth [place] tablet 00 daily. [facility] Branch potassium 2020-0 Yes [id number] 20meq Take 2 U nivers chloride 10 8-03 tablets by it y of mEq CR 00:00: mouth [place] tablet 00 daily. [facility] Branch potassium 2020-0 Yes [id number] 20meq Take 2 U nivers chloride 10 8-03 tablets by it y of mEq CR 00:00: mouth [place] tablet 00 daily. [facility] Branch potassium 2020-0 Yes 20meq Take [address] [facility] chloride 8-03 mEq by [facility] (KLOR-CON) 00:00: mouth. Medic al 10 MEQ CR 00 Center tablet potassium 2020-0 2020- No [id number] 20meq Take 2 Univers chloride 10 10-22 05-07 tablets by i ty of mEq CR 00:00: 00:00 mouth [place] tablet 00 :00 daily. Medical Branch furosemide No [id number] 40mg Take 1 Univers 40 mg 10-22 tablet by ity of tablet 00:00: 00:00 mouth [place] 00 :00 daily. Medical Branch escitalopra No [id number] 20mg Take 1 Univers m oxalate 10-22 tablet by ity of 20 mg 00:00: 00:00 mouth [place] tablet 00 :00 daily. Medical Branch apixaban No [id number] Take 2 Univer s [...] clot in the lung amLODIPine 2019- No [id number] 5mg Take 1 Univers 5 mg tablet 10-22 tablet by it y of 00:00: 04:59 mouth [place] 00 :00 daily for Medical 14 days. Branch aspirin 81 2019- No [id number] 81mg Take 1 Univers mg chewable 10-22 tablet by it y of tablet 00:00: 04:59 mouth [place] 00 :00 daily for Medical 14 days. Branch atomoxetine 2019- No [id number] 80mg Take 1 Univers (STRATTERA) 8-03 08-18 capsule by i ty of 80 mg 00:00: 04:59 mouth [place] capsule 00 :00 daily for Medical 14 days. Branch azilsartan 2019- 2020- No [id number] 1{tbl} Take 1 Univers med-chlorth 10-22 tablet by it y of alidone 00:00: 04:59 mouth [place] (EDARBYCLOR 00 :00 daily for Med ical ) 40-12.5 14 days. Branch mg Tab atorvastati 2019- 2020- No [id number] 40mg Take 1 Univers n 40 mg 10-22 tablet by ity of tablet 00:00: 04:59 mouth [place] 00 :00 every Medical evening Branch for 14 days. metoprolol 2019-2019- No [id number] 25mg Take 1 Univers tartrate 25 10-22 tablet by it y of mg tablet 00:00: 04:59 mouth [place] 00 :00 daily for Medical 14 days. Branch QUEtiapine 2019-2019- No [id number] 50mg Take 1 Univers (SEROQUEL) 10-22 tablet by ity of 50 mg 00:00: 04:59 mouth [place] tablet 00 :00 every Medical morning Branch for 14 days. QUEtiapine 2019-2019- No [id number] 300mg Take 3 Univers (SEROQUEL) 10-22 tablets by it y of 100 mg 00:00: 04:59 mouth [place] tablet 00 :00 every Medical evening Branch for 14 days. dapaglifloz 2019-2019- No [id number] 40mg Take 4 Univers in 10-22 tablets by ity of (FARXIGA) 00:00: 04:59 mouth [place] 10 mg 00 :00 daily for Medical tablet 14 days. Branch montelukast 2019-0 2020- No [id number] 10mg Take 1 Univers 10 mg 10-22 tablet by ity of tablet 00:00: 04:59 mouth [place] 00 :00 daily for Medical 14 days. Branch amLODIPine 2019- No [id number] 5mg Take 1 Univers 5 mg tablet 10-22 tablet by it y of 00:00: 04:59 mouth [place] 00 :00 daily for Medical 14 days. Branch aspirin 81 2019- 2020- No [id number] 81mg Take 1 Univers mg chewable 10-22 tablet by it y of tablet 00:00: 04:59 mouth [place] 00 :00 daily for Medical 14 days. Branch atomoxetine 2019- No [id number] 80mg Take 1 Univers (STRATTERA) 10-22 capsule by i ty of 80 mg 00:00: 04:59 mouth [place] capsule 00 :00 daily for Medical 14 days. Branch azilsartan 2019-2019- No [id number] 1{tbl} Take 1 Univers med-chlorth 10-22 tablet by it y of alidone 00:00: 04:59 mouth [place] (EDARBYCLOR 00 :00 daily for Med ical ) 40-12.5 14 days. Branch mg Tab atorvastati 2019- No [id number] 40mg Take 1 Univers n 40 mg 10-22 tablet by ity of tablet 00:00: 04:59 mouth [place] 00 :00 every Medical evening Branch for 14 days. metoprolol 2019- No [id number] 25mg Take 1 Univers tartrate 25 10-22 tablet by it y of mg tablet 00:00: 04:59 mouth [place] 00 :00 daily for Medical 14 days. Branch QUEtiapine 2019- No [id number] 50mg Take 1 Univers (SEROQUEL) 10-22 tablet by ity of 50 mg 00:00: 04:59 mouth [place] tablet 00 :00 every Medical morning Branch for 14 days. QUEtiapine 2019-2019- No [id number] 300mg Take 3 Univers (SEROQUEL) 10-22 tablets by it y of 100 mg 00:00: 04:59 mouth [place] tablet 00 :00 every Medical evening Branch for 14 days. dapaglifloz 2019- 2020- No [id number] 40mg Take 4 Univers in 10-22 tablets by ity of (FARXIGA) 00:00: 04:59 mouth [place] 10 mg 00 :00 daily for Medical tablet 14 days. Branch montelukast 2019-2019- No [id number] 10mg Take 1 [facility] 10 mg 10-22 tablet by ity of tablet 00:00: 04:59 mouth [place] 00 :00 daily for Medical 14 days. Branch montelukast 2019-0 2020- No [id number] 20mg Take 2 Univers 10 mg 10-22 tablets by ity of tablet 00:00: 00:00 mouth [place] 00 :00 daily for Medical 14 days. [place] iohexol 2020-0 2020- No 120mL 120 mL, Unive rs (OMNIPAQUE 10-21 Intravenou it y of 350 21:00: 21:00 s, ONCE, 1 [place] BULK-100 00 :00 dose, [facility] mL) 10/22/19 at [place] injection 1600, 120 mL Routine metoprolol 2020-0 Yes 25mg 25 mg, Unive rs tartrate 10-21 Oral, BID, ity o f (LOPRESSOR) 01:00: First dose [place] tablet 25 00 on [facility] mg 10/21/19 at Branch 2000, Until Discontinu ed, Routine HYDROcodone 2020-0 Yes 1{tbl} 1 tablet, Univers -acetaminop 10-20 Oral, ity of hen (NORCO) 18:17: Q6HPRN, [place] as 10-325 mg 52 Starting Medica l tablet 1 [facility] 10/21/19 Bran h tablet at 1317, Until Discontinu ed, Routine, Pain (scale 4-6) metoprolol 2020-0 2020- No 5mg 5 mg, IV Un [place] (LOPRESSOR) 10-20 Push, ity of injection 5 18:00: 17:38 ONCE, 1 [place] mg 00 :00 dose, [facility] 10/21/19 at Branch 1300, Routine QUEtiapine 2020-0 Yes 50mg 50 mg, Unive rs (SEROQUEL) 10-20 Oral, QAM, ity of tablet 50 14:00: First dose [place] mg 00 on [facility] 10/21/19 at Branch 0900, Until Discontinu ed, Routine escitalopra 2020-0 Yes 20mg 20 mg, Univ ers m oxalate 10-20 Oral, ity of (LEXAPRO) 14:00: DAILY, [place] tablet 20 00 First dose Medi carol mg on [facility] Branch 10/21/19 at 0900, Until Discontinu ed, Routine QUEtiapine 2020-0 Yes 300mg 300 mg, Uni vers (SEROQUEL) 10-20 Oral, QHS, ity of tablet 300 02:00: First dose [place] [facility] 10/20/19 at Branch 2100, Until Discontinu ed, Routine atorvastati 2020-0 Yes 40mg 40 mg, Univ ers n (LIPITOR) 10-20 Oral, QHS, it y of tablet 40 02:00: First dose [place] mg 00 on Wed Medical 10/20/19 at Branch 2100, Until Discontinu ed, Routine apixaban 2019-0 2020- No 10mg 10 mg, Univer s (ELIQUIS) 10-19 Oral, BID, ity of tablet 10 23:15: 12:59 14 doses, [place] mg 00 :00 First dose Medical on Wed [place] 10/20/19 at 1815, Last dose on [place] 10/26/19 at 2000, Routine Sliding 2020-0 Yes Subcutaneo Univ ers Scale 10-19 us, TID ity of Insulin - 22:00: MEALS+HS, [place] as Aspart 00 First dose Medical (NOVOLOG) + on Wed [place] [facility] 10/20/19 at Testing 1700, Until Discontinu ed, Routine KCL 2019-0 Yes 10meq 10 mEq, Univers (KLOR-CON 10-19 Oral, ity of M10) tablet 19:00: DAILY, [place] 10 mEq 00 First dose Medical on Wed [place] 10/20/19 at 1400, Until Discontinu ed, Routine traMADol 2019-0 2020- No 50mg 50 mg, Univer s (ULTRAM) 10-19 Oral, ity of tablet 50 18:49: 18:18 Q6HPRN, [place] mg 43 :42 Starting Medical [facility] 10/20/19 at 1349, Until [facility] 10/21/19 at 1318, Routine, Pain (scale 4-6) sulfur 2019-0 2020- No Intravenou Univ ers hexafluorid 10-19 [...] ity of unit/250 mL 14:21: 23:05 (13 [place] (Premixed 48 :32 mL/hr), IV Medi carol [...] Dosing and Testing: ____ &nbs p; FO [facility] - aPTT < 35: & nbsp;Bolus [...] therapeuti c levels are reached.<b r> acetaminoph Yes 650mg 650 mg, Un rosanna en 10-19 Oral, ity of (TYLENOL) 13:35: Q6HPRN, [place] tablet 650 29 Starting Medic al mg Fri Branch 10/20/19 at 0835, Until Discontinu ed, Routine, Pain (scale 1-3) cefTRIAXone 2020- No 1000mg 1,000 mg, Univers (ROCEPHIN) 6-11 06-11 IV ity of 1,000 mg in 04:15: 03:51 Piggyback, [place] NaCl 0.9% 00 :00 ONCE, 1 Medical (NS) 50 mL dose, Wed Bran ch MINI-BAG 08/30/19 at 2315, 50 mL
Reas on for Anti-Infec tive: Documented Infection< br>Documen kenroy Infection Site: Urine
D uration of Therapy: 7 days NaCl 0.9% 2019- No 1000mL at 999 Uni vers (NS) IV 08-30 mL/hr, ity of infusion 02:15: 03:19 Intravenou [place] 1,000 mL 00 :00 s, ONCE, 1 Medic al dose, [facility] Branch 08/30/19 at 2114, MADDIE LORazepam 2019- No 1mg 1 mg, Slow U nivers (ATIVAN) 08-30 IV Push, ity of injection 1 02:15: 01:57 ONCE, 1 [place] mg 00 :00 dose, [facility] Medical 08/30/19 at Branch 2114, STAT diphenhydrA 2019- No 25mg 25 mg, Uni vers MINE 08-30 Slow IV ity of (BENADRYL) 02:15: 01:57 Push, [place] injection 00 :00 ONCE, 1 Medical 25 mg dose, [facility] Branch 08/30/19 at 211, STAT metoclopram 2019- No 10mg 10 mg, Uni vers fariba HCl 08-30 Slow IV ity of (REGLAN) 02:15: 01:57 Push, [place] injection 00 :00 ONCE, 1 Medical 10 mg dose, [facility] Branch 08/30/19 at 2114, MADDIE dexamethaso 2019- No 10mg 10 mg, IV Univers ne 08-30 Push, ity of (DECADRON 02:15: 01:56 ONCE, 1 [place] PHOSPHATE) 00 :00 dose, Wed Medi carol injection 08/30/19 at Bran ch 10 mg 2114, STAT ketorolac 2019- No 30mg 30 mg, Unive rs (TORADOL) 08-30 Slow IV ity of injection 02:15: 01:56 Push, [place] 30 mg 00 :00 ONCE, 1 Medical dose, [facility] Branch 08/30/19 at 2115, Routine
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 [place] (EDARBYCLOR 13 Medical ) 40-12.5 Branch mg Tab potassium 2020-0 Yes 20meq Take 20 Univ ers chloride 10 08-16 mEq by ity of mEq CR 00:20: mouth [place] tablet 13 daily. Medical Branch dapaglifloz 2020-0 Yes 40mg Take 40 mg Univers in 08-16 by mouth ity of (FARXIGA) 00:20: daily. [place] 10 mg 13 Medical tablet Branch montelukast 2020-0 Yes 20mg Take 20 mg Univers 10 mg 08-16 by mouth. ity of tablet 00:20: [place] [address] Medical Branch apixaban 2020-0 Yes 5mg Take 5 mg Univ ers (ELIQUIS) 5 08-16 by mouth 2 it y of mg tablet 00:20: (two) [place] [address] times [facility] daily. Branch atomoxetine 2020-0 Yes 80mg Take 80 mg Univers (STRATTERA) - by mouth ity of 80 mg 00:20: daily. [place] capsule 13 Medical Branch QUEtiapine 2020-0 Yes 50mg Take 50 mg U nivers (SEROQUEL) -28 by mouth ity o f 50 mg 00:20: every [place] tablet 13 morning. Medical Branch QUEtiapine 2020-0 Yes 300mg Take 300 Un rosanna (SEROQUEL) 5-28 mg by ity of 200 mg 00:20: mouth [place] tablet 13 every Medical evening. Branch escitalopra 2020-0 Yes 20mg Take 20 mg Univers m oxalate 08-16 by mouth ity of 20 mg 00:20: daily. [place] tablet 13 Medical Branch traMADol 2020-0 Yes 50mg Take 50 mg Uni vers 100 mg 5-28 by mouth 3 ity of capsule 00:20: (three) [place] [address] times Medical daily. Branch azilsartan 2020-0 Yes Take by Univ ers med-chlorth - mouth ity of alidone 00:20: daily. [place] (EDARBYCLOR 13 Medical ) 40-12.5 Branch mg Tab potassium 2020-0 Yes 20meq Take 20 Univ ers chloride 10 -28 mEq by ity of mEq CR 00:20: mouth [place] tablet 13 daily. Medical Branch dapaglifloz 2020-0 Yes 40mg Take 40 mg Univers in -28 by mouth ity of (FARXIGA) 00:20: daily. [place] 10 mg 13 Medical tablet Branch montelukast 2020-0 Yes 20mg Take 20 mg Univers 10 mg -28 by mouth. ity of tablet 00:20: [place] [address] Medical Branch apixaban 2020-0 Yes 5mg Take 5 mg Univ ers (ELIQUIS) 5 - by mouth 2 it y of mg tablet 00:20: (two) [place] [address] times Medical daily. Branch atomoxetine 2020-0 Yes 80mg Take 80 mg Univers (STRATTERA) 5-28 by mouth ity of 80 mg 00:20: daily. [place] capsule 13 Medical Branch QUEtiapine 2020-0 Yes 50mg Take 50 mg U nivers (SEROQUEL) 5-28 by mouth ity o f 50 mg 00:20: every [place] tablet 13 morning. Medical Branch QUEtiapine 2020-0 Yes 300mg Take 300 Un [place] (SEROQUEL) 5-28 mg by ity of 200 mg 00:20: mouth [place] tablet 13 every Medical evening. Branch escitalopra 2020-0 Yes 20mg Take 20 mg Univers m oxalate 5-28 by mouth ity of 20 mg 00:20: daily. [place] tablet 13 Medical Branch traMADol 2020-0 Yes 50mg Take 50 mg Uni vers 100 mg 5-28 by mouth 3 ity of capsule 00:20: (three) [place] 13 times Medical daily. Branch apixaban 2020-0 Yes 5mg 5 mg, Univers (ELIQUIS) 5-27 Oral, BID, ity of tablet 5 mg 15:30: First dose [place] Wed08/16/19 at Branch 1030, Until Discontinu ed, Routine lisinopril 2019-0 Yes 10mg 10 mg, Unive rs (PRINIVIL,Z 08-15 Oral, ity of ESTRIL) 15:15: DAILY, [place] tablet 10 00 First dose Medi carol mg on Wed Branch 08/16/19 at 1015, Until Discontinu ed, Routine furosemide 2019- 2020- No 40mg Take 40 mg Univers (LASIX) 40 08-15 by mouth ity of mg tablet 15:11: 00:00 daily. [place] 17 :00 Medical Branch amLODIPine 2019- Yes 5mg 5 mg, Univer s (NORVASC) 08-15 Oral, ity of tablet 5 mg 14:00: DAILY, [place] 00 First dose Medical on Wed Branch 08/16/19 at 0900, Until Discontinu ed, Routine magnesium 2019- 2020- No 2g 2 g, IV Univ ers sulfate in 08-15 Piggyback, it y of water 2 12:23: 14:09 ONCE, 1 [place] gram/50 mL 00 :00 dose, Wed Medi carol (4 %) 08/16/19 at Branch infusion 2 0730, g Routine atorvastati 2019- No 40mg Take 40 mg Univers n 40 mg 08-15 by mouth ity of tablet 12:21: 00:00 every [place] 23 :00 evening. Medical Branch magnesium 2019-0 2020- No 2g 2 g, IV Univ ers sulfate in 08-15 Piggyback, it y of water 2 11:45: 11:29 ONCE, 1 [place] gram/50 mL 00 :00 dose, Wed Medi carol (4 %) 08/16/19 at Branch infusion 2 0645, g Routine FENTanyl PF 2019-2019- No Slow IV Un rosanna (SUBLIMAZE 08-15 Push, ity of (PF)) 00:36: 00:36 TITRATE - [place] injection 48 :48 FOR Medical PROCEDURE Branch USE, 1 dose, Starting Wed08/15/19 at 1936, Until Wed08/15/19 at 1936, Routine heparin 2019-0 2020- No Slow IV Univer s 1,000 08-15 Push, ity of unit/mL 00:22: 00:22 TITRATE - [place] injection 00 :00 FOR Medical PROCEDURE Branch USE, 1 dose, Starting 08/15/19 at 1921, Until 08/15/19 at 1921, Routine nitroglycer 2019- No Intravenou Univers in (TRIDIL) 08-15 s, TITRATE i ty of 2 mg in 10 00:22: 00:22 - FOR [place] mL D5W for 00 :00 PROCEDURE Medi carol Cardiac USE, 1 Branch Cath dose, Starting 08/15/19 at 1921, Until 08/15/19 at 1921, Routine lidocaine 2019- No Infiltrati U nivers 1% (PF) 08-15 [...] Branch dose, Starting 08/15/19 at 1916, Until 08/15/19 at 1916, Routine amLODIPine 0 Yes [id number] 5mg Take 1 U nivers 5 mg tablet 5-27 tablet by ity of 00:00: mouth [place] 00 daily. Medical Branch aspirin 81 2019-0 Yes [id number] 81mg Take 1 U nivers mg chewable 5-27 tablet by ity of tablet 00:00: mouth [place] 00 daily. Medical Branch atorvastati 0 Yes [id number] 40mg Take 1 Univers n 40 mg 5-27 tablet by ity of tablet 00:00: mouth [place] 00 every Medical evening. Branch furosemide 2019-0 Yes [id number] 60mg Take 1.5 Univers (LASIX) 40 5-27 tablets by ity of mg tablet 00:00: mouth [place] 00 daily. Medical Branch amLODIPine 2019-0 Yes [id number] 5mg Take 1 U nivers 5 mg tablet - tablet by ity of 00:00: mouth [place] 00 daily. Medical Branch aspirin 81 2020-0 Yes [id number] 81mg Take 1 U nivers mg chewable -27 tablet by ity of tablet 00:00: mouth [place] 00 daily. Medical Branch atorvastati 0 Yes [id number] 40mg Take 1 Univers n 40 mg -27 tablet by ity of tablet 00:00: mouth [place] 00 every Medical evening. Branch furosemide 2019-0 Yes [id number] 60mg Take 1.5 Univers (LASIX) 40 -27 tablets by ity of mg tablet 00:00: mouth [place] 00 daily. Medical Branch amLODIPine 0 2020- No [id number] 5mg Take 1 Univers 5 mg tablet 08-15- tablet by it y of 00:00: 00:00 mouth [place] 00 :00 daily. Medical Branch aspirin 81 0 2020- No [id number] 81mg Take 1 Univers mg chewable 08-15- tablet by it y of tablet 00:00: 00:00 mouth [place] 00 :00 daily. Medical Branch atorvastati 0 2020- No [id number] 40mg Take 1 Univers n 40 mg -15 11- tablet by ity of tablet 00:00: 00:00 mouth [place] 00 :00 every Medical evening. Branch furosemide 2019-0 2020- No [id number] 60mg Take 1.5 Univers (LASIX) 40 -27 -03 tablets by it y of mg tablet 00:00: 00:00 mouth [place] 00 :00 daily. Medical Branch furosemide 2019-0 2020- No [id number] 40mg Take 1 Univers (LASIX) 40 -27 -27 tablet by ity of mg tablet 00:00: 00:00 mouth [place] 00 :00 daily. Medical Branch QUEtiapine 0 Yes 300mg 300 mg, Uni vers (SEROQUEL) 08-14 Oral, QPM, ity of tablet 300 22:00: First dose [place] mg 00 on [facility] 08/15/19 at Branch 1700, Until Discontinu ed, Routine atorvastati 0 Yes 40mg 40 mg, Univ ers n (LIPITOR) 08-14 Oral, QPM, it y of tablet 40 22:00: First dose [place] mg 00 on [facility] 08/15/19 at Branch 1700, Until Discontinu ed, Routine perflutren 2020-0 2020- No 2mL 2 mL, IV Un [place] lipid 08-14 Push, ity of microsphere 21:30: 20:10 ONCE, 1 [place] 00 :00 dose, [facility] (DEFINITY) 08/15/19 at [facility] injection 2 1630, mL Routine QUEtiapine 2020-0 Yes 50mg 50 mg, [facility] rs (SEROQUEL) 08-14 Oral, QAM, ity of tablet 50 14:00: First dose [place] mg 00 on [facility] 08/15/19 at Branch 0900, Until Discontinu ed, Routine escitalopra 2020-0 Yes 20mg 20 mg, [facility] ers m oxalate 08-14 Oral, ity of (LEXAPRO) 14:00: DAILY, [place] tablet 20 00 First dose Medi carol mg on [facility] 08/15/19 at 0900, Until Discontinu ed, Routine aspirin 2020-0 Yes 81mg 81 mg, Univers chewable 08-14 Oral, ity of tablet 81 14:00: DAILY, [place] mg 00 First dose Medical on [facility] 08/15/19 at 0900, Until Discontinu ed, Routine pantoprazol 2020-0 Yes 40mg 40 mg, Univ ers e 08-14 Oral, ity of (PROTONIX) 14:00: DAILY, [place] EC tablet 00 First dose Medi carol [address] [facility] 08/15/19 at 0900, Until Discontinu ed, Routine furosemide 2020-0 2020- No 40mg 40 mg, [facility] ers (LASIX) 08-14 Oral, ity of tablet 40 14:00: 15:08 DAILY, [place] mg 00 :22 First dose Medical on [facility] 08/15/19 at 0900, Until Discontinu ed, Routine magnesium 2020-0 2020- No 2g 2 g, IV [facility] ers sulfate in 08-14 Piggyback, it y of water 2 11:45: 11:42 ONCE, 1 [place] gram/50 mL 00 :00 dose, Count Includes [facility] Medi carol (4 %) 5/26/20 at Branch infusion 2 0645, g Routine morpHINE Yes 4mg 4 mg, Slow Uni vers injection 4 08-14 IV Push, ity of mg 03:56: Q4HPRN, [place] 06 Starting Medical Mon [place] 08/14/19 at 2256, Until Discontinu ed, Routine, Pain (scale 7-10) lidocaine 2020- No 1{patch 1 Patch, Univers (LIDODERM) 08-14 } Topical, ity of 5 % (700 02:45: 14:09 Administer [place] mg/patch) 00 :00 over 12 Medical patch 1 Hours, Branch Patch ONCE, 1 dose, [facility] 08/14/19 at 2145, Routine heparin 2019- No 1000U/h 1,000 Unive rs 25,000 08-14 Units/hr ity of unit/250 mL 02:33: 15:27 ( [place] (Premixed 44 :08 mL/hr), IV Medi carol Bag) in D5W Infusion, Bra nch TITRATE, Parameters in Admin. Instr., Starting [facility] 08/14/19 at 2133
CA UTION - If [...] Dosing and Testing: ____ &nbs p; FO Tammy DAILEY AND [facility] ONLY - aPTT < 35: & nbsp;Bolus [...] therapeuti c levels are reached.<b r> Sliding 2019-0 Yes Subcutaneo Univ ers Scale - us, TID ity of Insulin - 02:00: [...] (refer to continuous heparin drip order).
dextrose 0 Yes 250mL 250 mL, IV Un rosanna [...] at room temperatur e. <b r> glucagon 2019- Yes 1mg 1 mg, Univers (GLUCAGEN 08-14 [...] tablet 650 24 Starting Medic al mg [facility] 08/14/19 at 202, Until Discontinu ed, Routine, Pain (scale 1-3) nitroglycer 2019-2019- No 1[in_us 1 Inch, Univers in (NITROL) -25 05-25 ] Transderma i ty of 2 % 22:00: 21:15 l (Apply [place] ointment 1 00 :00 To Skin), Medi carol Inch ONCE, 1 Branch dose, [facility] 08/14/19 at 1700, MADDIE paroxetine 2019- No 10mg Take 10 mg Univers (PAXIL) 10 -25 05-25 by mouth ity of mg tablet 21:49: 00:00 daily. [place] 06 :00 Medical Branch HYDROcodone 2019- No 1{tbl} Take 1 [...] :00 (four) Medical times Branch daily. enalapril-h 2020- No 2{tbl} Take 2 U nivers ydrochlorot 5-25 05-25 Tabs by ity of hiazide 21:48: 00:00 mouth [place] (VASERETIC) 18 :00 daily. Medica l 10-25 mg Branch per tablet morpHINE 2019- No 4mg 4 mg, Slow Un [place] injection 4 5-25 05-25 IV Push, ity of mg 20:15: 19:04 ONCE, 1 [place] 00 :00 dose, [facility] 08/14/19 at Branch 1515, Routine iohexol 2019- 2020- No 120mL 120 mL, Unive rs (OMNIPAQUE 5-25 05-25 Intravenou it y of 350 19:30: 19:12 s, ONCE, 1 [place] BULK-150 00 :00 dose, Mon Medica l mL) 08/14/19 at Branch injection 1430, 120 mL Routine enoxaparin 2019- No 150mg 150 mg, Un [place] (LOVENOX) 08-13-25 Subcutaneo ity of injection 19:30: 19:30 us, ONCE, [place] 150 mg 00 :00 1 dose, Medical [facility] 08/14/19 at 1430, MADDIE ondansetron 2019- No 4mg 4 mg, Slow Univers (ZOFRAN 08-13- IV Push, ity of (PF)) 19:15: 18:51 ONCE, 1 [place] injection 4 00 :00 dose, [facility] Med ical mg 08/14/19 at Branch 1415, MADDIE ketorolac 2019- No 30mg 30 mg, Unive rs (TORADOL) 08-13 Slow IV ity of injection 18:00: 17:06 Push, [place] 30 mg 00 :00 ONCE, 1 Medical dose, [facility] 08/14/19 at 1300, MADDIE
Fa culty member approving Restricted medication : Link GERMAN aspirin 2019- No 324mg 324 mg, Unive rs chewable 08-1325 Oral, ity of tablet 324 17:45: 17:06 ONCE, 1 [place] as mg 00 :00 dose, [facility] Medical 08/14/19 at Branch 1245, Routine topiramate 2018- Yes 50 mg = 1 Me moria 50 mg oral 6-06 tab, PO, l tablet 22:33: BID, # 60 [place] n 00 tab, 1 Refill(s), Pharmacy: [facility] topiramate 2018-0 Yes 50 mg = 1 Me moria 50 mg oral 6-06 tab, PO, l tablet 22:33: BID, # 60 [place] n 00 tab, 1 Refill(s), Pharmacy: [facility] topiramate 2018-0 Yes 50 mg = 1 Me moria 50 mg oral 6-06 tab, PO, l tablet 22:33: BID, # 60 Jorge n 00 tab, 1 Refill(s), Pharmacy: [facility] topiramate 2018-0 Yes 50 mg = 1 Me moria 50 mg oral 6-06 tab, PO, l tablet 22:33: BID, # 60 Jorge n 00 tab, 1 Refill(s), Pharmacy: [facility] topiramate Yes 50 mg = 1 Me moria 50 mg oral 6-06 tab, PO, l tablet 22:33: BID, # 60 Jorge n 00 tab, 1 Refill(s), Pharmacy: [facility] topiramate Yes 50 mg = 1 Me moria 50 mg oral 6-06 tab, PO, l tablet 22:33: BID, # 60 Jorge n 00 tab, 1 Refill(s), Pharmacy: [facility] topiramate Yes 50 mg = 1 Me moria 50 mg oral 6-06 tab, PO, l tablet 22:33: BID, # 60 Jorge n 00 tab, 1 Refill(s), Pharmacy: [facility] topiramate Yes 50 mg = 1 Me moria 50 mg oral 6-06 tab, PO, l tablet 22:33: BID, # 60 Jorge n 00 tab, 1 Refill(s), Pharmacy: [facility] Dihydroergo No Notes: Levy mike tamine 6-06 (Same as: l Mesylate 1 21:58: D.H.E. 45) H ermann MG/ML 00 Injectable Solution [DHE-45] Dihydroergo No Notes: [place] mike tamine 6-06 (Same as: l Mesylate 1 21:58: D.H.E. 45) H ermann MG/ML 00 Injectable Solution [DHE-45] Dihydroergo 0 No Notes: [place] mike tamine 6-06 (Same as: l Mesylate 1 21:58: D.H.E. 45) H ermann MG/ML 00 Injectable Solution [DHE-45] Dihydroergo 2018-0 No Notes: [place] mike tamine 6-06 (Same [...] 30 mg Product Wasted: ___ mg Prednisone 2019- No Notes: Memor ia 6-06 Take with l 13:57: food. [place] Prednisone 2019-0 No Notes: Memor ia 6-06 Take with l 13:57: food. [place] 00 Prednisone 2018-0 No Notes: Memor ia 6-06 Take with l 13:57: food. [place] 00 Prednisone 2019-0 No Notes: Memor ia 6-06 Take with l 13:57: food. [place] 00 Prednisone 2018- No Notes: Memor ia 6-06 Take with l 13:57: food. [place] 00 Prednisone 2018-0 No Notes: Memor ia 6-06 Take with l 13:57: food. [place] 00 Prednisone 2018-0 No Notes: Memor ia 6-06 Take with l 13:57: food. [place] 00 Prednisone 2018-0 No Notes: Memor ia 6-06 Take with l 13:57: food. [place] 00 Topamax 2019-0 No Notes: Memoria 6-06 (Same As: l 02:00: Topamax) [place] "Do Not Crush" Topamax 2019-0 No Notes: Memoria 6-06 (Same As: l 02:00: Topamax) [place] 00 "Do Not Crush" Topamax 2019-0 No Notes: Memoria 6-06 (Same As: l 02:00: Topamax) [place] 00 "Do Not Crush" Topamax 2019-0 No Notes: Memoria 6-06 (Same As: l 02:00: Topamax) [place] 00 "Do Not Crush" Topamax 2019-0 No Notes: Memoria 6-06 (Same As: l 02:00: Topamax) [place] 00 "Do Not Crush" Topamax 2019-0 No Notes: Memoria 6-06 (Same As: l 02:00: Topamax) [place] 00 "Do Not Crush" Topamax 2019-0 No Notes: Memoria 6-06 (Same As: l 02:00: Topamax) [place] 00 "Do Not Crush" Topamax 2019-0 No Notes: Memoria 6-06 (Same As: l 02:00: Topamax) [place] 00 "Do Not Crush" Imitrex 2019-0 No 6 mg, Memoria 6-05 Route: l 21:45: SUB-Q, [place] 00 ONCE, Dosing Weight 187.273, kg, Start date: 08/24/18 16:45:00 CDT, Stop date: 08/24/18 16:45:00 CDT Imitrex 2019-0 No 6 mg, Memoria 6-05 Route: l 21:45: SUB-Q, [place] 00 ONCE, Dosing Weight 187.273, kg, Start date: 08/24/18 16:45:00 CDT, Stop date: 08/24/18 16:45:00 CDT Imitrex 2019-0 No 6 mg, [facility] 6-05 Route: l 21:45: SUB-Q, [place] 00 ONCE, Dosing Weight 187.273, kg, Start date: 08/24/18 16:45:00 CDT, Stop date: 08/24/18 16:45:00 CDT Imitrex 2019-0 No 6 mg, Memoria 6-05 Route: l 21:45: SUB-Q, [place] 00 ONCE, Dosing Weight 187.273, kg, Start date: 08/24/18 16:45:00 CDT, Stop date: 08/24/18 16:45:00 CDT Imitrex 2019-0 No 6 mg, Memoria 6-05 Route: l 21:45: SUB-Q, [place] 00 ONCE, Dosing Weight 187.273, kg, Start date: 08/24/18 16:45:00 CDT, Stop date: 08/24/18 16:45:00 CDT Imitrex 2019-0 No 6 mg, Memoria 6-05 Route: l 21:45: SUB-Q, [place] 00 ONCE, Dosing Weight 187.273, kg, Start [...] day, # 60 cap, 0 Refill(s), Pharmacy: [facility] [address] [place], [place] [id number] Yes 25 mg = 1 Me moria 25 mg oral 6-05 cap, PO, l capsule 21:01: Q12H, X 30 Herm edwin 00 day, # 60 cap, 0 Refill(s), Pharmacy: [facility] [address] [place], [place] [id number] Yes 25 mg = 1 Me moria 25 mg oral 6-05 cap, PO, l capsule 21:01: Q12H, X 30 Herm edwin 00 day, # 60 cap, 0 Refill(s), Pharmacy: [facility] toplubbockmate Yes 25 mg = 1 Me moria 25 mg oral 6-05 cap, PO, l capsule 21:01: Q12H, X 30 Herm ed[place] 00 day, # 60 cap, 0 Refill(s), Pharmacy: [facility] [address] [place], [place] [id number] Yes 25 mg = 1 Me moria 25 mg oral 6-05 cap, PO, l capsule 21:01: Q12H, X 30 Herm edwin 00 day, # 60 cap, 0 Refill(s), Pharmacy: [facility] [address] [place], [place] [id number] Yes 25 mg = 1 Me moria 25 mg oral 6-05 cap, PO, l capsule 21:01: Q12H, X 30 Herm [place] 00 day, # 60 cap, 0 Refill(s), Pharmacy: [facility] [address] [place], [place] [id number] 2019-0 Yes 25 mg = 1 Me moria 25 mg oral 6-05 cap, PO, l capsule 21:01: Q12H, X 30 Herm [place] 00 day, # 60 cap, 0 Refill(s), Pharmacy: [facility] [id number] topiramate Yes 25 mg = 1 Me moria 25 mg oral 6-05 cap, PO, l capsule 21:01: Q12H, X 30 Herm [place] 00 day, # 60 cap, 0 Refill(s), Pharmacy: [facility] [id number] Imitrex 2019 No Notes: Memoria 6-05 For l 20:07: SUBCUTANEO [place] 00 US use only Imitrex No Notes: [facility]oria 6-05 For l 20:07: SUBCUTANEO [place] 00 US use only Imitrex No Notes: Memoria 6-05 For l 20:07: SUBCUTANEO [place] 00 US use only Imitrex No Notes: Memoria 6-05 For l 20:07: SUBCUTANEO [place] 00 US use only Imitrex No Notes: Memoria 6-05 For l 20:07: SUBCUTANEO [place] 00 US use only Imitrex No Notes: Memoria 6-05 For l 20:07: SUBCUTANEO [place] 00 US use only Imitrex No Notes: Memoria 6-05 For l 20:07: SUBCUTANEO [place] 00 US use only Imitrex No Notes: Memoria 6-05 For l 20:07: SUBCUTANEO [place] 00 US use only Prednisone No Notes: Memor ia 6-05 Take with l 19:49: food. [place] 00 Prednisone No Notes: Memor ia 6-05 Take with l 19:49: food. [place] 00 Prednisone No Notes: Memor ia 6-05 Take with l 19:49: food. Prednisone No Notes: Memor ia 6-05 Take with l 19:49: food. [place] 00 Prednisone No Notes: Memor ia 6-05 Take with l 19:49: food. [place] 00 Prednisone No Notes: Memor ia 6-05 Take [...] day, # 12 tab, 0 Refill(s), Pharmacy: [facility] Ketorolac No 10 mg = 1 Mem oria Tromethamin 6-05 tab, PO, l e 10 MG 15:41: Q6H, X 3 Jorge n Oral Tablet 00 day, # 12 tab, 0 Refill(s), Pharmacy: [facility] Ketorolac No 10 mg = 1 Mem oria Tromethamin 6-05 tab, PO, l e 10 MG 15:41: Q6H, X 3 Jorge n Oral Tablet 00 day, # 12 tab, 0 Refill(s), Pharmacy: [facility] Ketorolac No 10 mg = 1 Mem oria Tromethamin 6-05 tab, PO, l e 10 MG 15:41: Q6H, X 3 [place] n Oral Tablet 00 day, # 12 tab, 0 Refill(s), Pharmacy: [facility] Ketorolac No 10 mg = 1 Mem oria Tromethamin 6-05 tab, PO, l e 10 MG 15:41: Q6H, X 3 [place] n Oral Tablet 00 day, # 12 tab, 0 Refill(s), Pharmacy: [facility] Ketorolac No 10 mg = 1 Mem oria Tromethamin 6-05 tab, PO, l e 10 MG 15:41: Q6H, X 3 Jorge n Oral Tablet 00 day, # 12 tab, 0 Refill(s), Pharmacy: [facility] Ketorolac No 10 mg = 1 Mem oria Tromethamin 6-05 tab, PO, l e 10 MG 15:41: Q6H, X 3 Jorge n Oral Tablet 00 day, # 12 tab, 0 Refill(s), Pharmacy: [facility] 1405 Ketorolac No 10 mg = 1 Mem oria Tromethamin 6-05 tab, PO, l e 10 MG 15:41: Q6H, X 3 Jorge n Oral Tablet 00 day, # 12 tab, 0 Refill(s), Pharmacy: [facility] [id number] Morphine No Notes: Memoria 6-05 (Same l 15:38: as:MORPhin [place] 00 e Sulfate) Morphine No Notes: Memoria 6-05 (Same l 15:38: as:MORPhin [place] 00 e Sulfate) Morphine No Notes: Memoria 6-05 (Same l 15:38: as:MORPhin [place] 00 e Sulfate) Morphine No Notes: Memoria 6-05 (Same l 15:38: as:MORPhin [place] 00 e Sulfate) Morphine No Notes: Memoria 6-05 (Same l 15:38: as:MORPhin [place] 00 e Sulfate) Morphine No Notes: Memoria 6-05 (Same l 15:38: as:MORPhin [place] 00 e Sulfate) Morphine No Notes: Memoria 6-05 (Same l 15:38: as:MORPhin [place] 00 e Sulfate) Morphine No Notes: Memoria 6-05 (Same l 15:38: as:MORPhin [place] 00 e Sulfate) Hydrochloro No 1 tab, Levy mike thiazide 25 6-05 Route: PO, l MG / 14:00: Drug Form: [place] Lisinopril 00 TAB, 20 MG Oral Dosing Tablet Weight 187.273, kg, Daily, Start date: 08/24/18 9:00:00 CDT, Duration: 30 day, Stop date: 09/22/18 9:00:00 CDT Hydrochloro No 1 tab, Levy mike thiazide 25 6-05 Route: PO, l MG / 14:00: Drug Form: [place] Lisinopril 00 TAB, 20 MG Oral Dosing [...] PO, l MG / 14:00: Drug Form: [place] Lisinopril 00 TAB, 20 MG Oral Dosing [...] 6-04 (Same as: l Tablet 22:00: Pepcid) [place] [Pepcid] metoprolol No Notes: Memor ia tartrate [...] 6-04 (Same as: l Tablet 22:00: Pepcid) Pepcid] metoprolol No Notes: Memor ia tartrate 6-04 (Same as: l 22:00: Lopressor) Famotidine No Notes: Memor ia 20 MG Oral 6-04 (Same as: l Tablet 22:00: Pepcid) Pepcid] metoprolol No Notes: Memor ia tartrate 6-04 (Same as: l 22:00: Lopressor) Famotidine No Notes: Memor ia 20 MG Oral 6-04 (Same as: l Tablet 22:00: Pepcid) Pepcid] metoprolol No Notes: Memor ia tartrate 6-04 (Same as: l 22:00: Lopressor) Morphine No 4 mg, 2 Memori a 6-04 mL, Route: l 21:27: IVP, Drug form: SOLN, Q4H, Dosing Weight 187.273, kg, PRN Pain Score 7-10, Start date: 08/23/18 16:27:00 CDT, Duration: 30 day, Stop date: 09/22/18 16:26:00 CDT Morphine No 4 mg, 2 Memori a 6-04 mL, Route: l 21:27: IVP, Drug [place] 00 form: SOLN, Q4H, Dosing Weight 187.273, kg, PRN Pain Score 7-10, Start date: 08/23/18 16:27:00 CDT, Duration: 30 day, Stop date: 09/22/18 16:26:00 CDT Morphine 2019-0 No 4 mg, 2 Memori a 6-04 mL, Route: l 21:27: IVP, Drug [place] 00 form: SOLN, Q4H, Dosing Weight 187.273, kg, PRN Pain Score 7-10, Start date: 08/23/18 16:27:00 CDT, Duration: 30 day, Stop date: 09/22/18 16:26:00 CDT Morphine 2019-0 No 4 mg, 2 Memori a 6-04 mL, Route: l 21:27: IVP, Drug [place] 00 form: SOLN, Q4H, Dosing Weight 187.273, kg, PRN Pain Score 7-10, Start date: 08/23/18 16:27:00 CDT, Duration: 30 day, Stop date: 09/22/18 16:26:00 CDT Morphine 2019-0 No 4 mg, 2 Memori a 6-04 mL, Route: l 21:27: IVP, Drug [place] 00 form: SOLN, Q4H, Dosing Weight 187.273, kg, PRN Pain Score 7-10, Start date: 08/23/18 16:27:00 CDT, Duration: 30 day, Stop date: 09/22/18 16:26:00 CDT Morphine 2019-0 No 4 mg, 2 Memori a 6-04 mL, Route: l 21:27: IVP, Drug [place] 00 form: SOLN, Q4H, Dosing Weight 187.273, kg, PRN Pain Score 7-10, Start date: 08/23/18 16:27:00 CDT, Duration: 30 day, Stop date: 09/22/18 16:26:00 CDT Morphine 2019-0 No 4 mg, 2 Memori a 6-04 mL, Route: l 21:27: IVP, Drug [place] 00 form: SOLN, Q4H, Dosing Weight 187.273, kg, PRN Pain Score 7-10, Start date: 08/23/18 16:27:00 CDT, Duration: 30 day, Stop date: 09/22/18 16:26:00 CDT Morphine 2018-0 No 4 mg, 2 Memori a 6-04 [...] 6-04 (Same as: l 20:34: Compazine) ketOROLAC 0 No 4 days Memor ia 30 mg/mL 6-04 l injectable 20:34: MEDICATION H ermann solution 00 WASTE Product Size: 30 mg Product Wasted: ___ mg Benadryl No Notes: Memoria 6-04 (Same as: l 20:34: Benadryl) Compazine No Notes: Memori a 6-04 (Same as: l 20:34: Compazine) [place] 00 ketOROLAC 0 No 4 days Memor ia 30 mg/mL 6-04 l injectable 20:34: MEDICATION H ermann solution 00 WASTE Product Size: 30 mg Product Wasted: ___ mg Benadryl No Notes: Memoria 6-04 (Same as: l 20:34: Benadryl) Compazine No Notes: Memori a 6-04 (Same as: l 20:34: Compazine) [place] ketOROLAC 0 No 4 days Memor ia 30 mg/mL 6-04 l injectable 20:34: MEDICATION H ermann solution 00 WASTE Product Size: 30 mg Product Wasted: ___ mg Benadryl No Notes: Memoria 6-04 (Same as: l 20:34: Benadryl) Compazine No Notes: Memori a 6-04 (Same as: l 20:34: Compazine) ketOROLAC 0 No 4 days Memor ia [...] Memoria 6-04 (Same as: l 20:34: Benadryl) [place] 00 tramadol No Notes: Not Mem oria hydrochlori 6-04 to exceed l de 50 MG 18:00: 400mg/day. Her wright Oral Tablet 00 (Same As: Ultram) Sucralfate No Notes: July Eden emoria 6-04 interfere l 18:00: w/enteral [place] 00 feeds - Take 1 hr before or 2 hr after antacids, dairy pdt, meals & minerals - On empty stomach. For patients unable to swallow tablet, dissolve in 10mL - 30mL of water or juice and stir before giving. (Same As: Carafate) tramadol No Notes: Not Mem oria hydrochlori 6- to exceed l de 50 MG 18:00: 400mg/day. Her wright Oral Tablet 00 (Same As: Ultram) Sucralfate No Notes: July Eden emoria 6-04 interfere l 18:00: w/enteral [place] 00 feeds - Take 1 hr before or 2 hr after antacids, dairy pdt, meals & minerals - On empty stomach. For patients unable to swallow tablet, dissolve in 10mL - 30mL of water or juice and stir before giving. (Same As: Carafate) tramadol No Notes: Not Mem oria hydrochlori 6-04 to exceed l de 50 MG 18:00: 400mg/day. Her wright Oral Tablet 00 (Same As: Ultram) Sucralfate No Notes: July Eden emoria 6-04 interfere l 18:00: w/enteral [place] 00 feeds - Take 1 hr before or 2 hr after antacids, dairy pdt, meals & minerals - On empty stomach. For patients unable to swallow tablet, dissolve in 10mL - 30mL of water or juice and stir before giving. (Same As: Carafate) tramadol No Notes: Not Mem oria hydrochlori 6-04 to exceed l de 50 MG 18:00: 400mg/day. Her wright Oral Tablet 00 (Same As: Ultram) Sucralfate No Notes: July Eden emoria 6-04 interfere l 18:00: w/enteral [place] 00 feeds - Take 1 hr before or 2 hr after antacids, dairy pdt, meals & minerals - On empty stomach. For patients unable to swallow tablet, dissolve in 10mL - 30mL of water or juice and stir before giving. (Same As: Carafate) tramadol No Notes: Not Mem oria hydrochlori 6-04 to exceed l de 50 MG 18:00: 400mg/day. Her wright Oral Tablet 00 (Same As: Ultram) Sucralfate No Notes: July Eden emoria 6-04 interfere l 18:00: w/enteral [place] 00 feeds - Take 1 hr before or 2 hr after antacids, dairy pdt, meals & minerals - On empty stomach. For patients unable to swallow tablet, dissolve in 10mL - 30mL of water or juice and stir before giving. (Same As: Carafate) tramadol No Notes: Not Mem oria hydrochlori 6-04 to exceed l de 50 MG 18:00: 400mg/day. Her wright Oral Tablet 00 (Same As: Ultram) Sucralfate No Notes: July Eden emoria 6-04 interfere l 18:00: w/enteral [place] 00 feeds - Take 1 hr before or 2 hr after antacids, dairy pdt, meals & minerals - On empty stomach. For patients unable to swallow tablet, dissolve in 10mL - 30mL of water or juice and stir before giving. (Same As: Carafate) tramadol No Notes: Not Mem oria hydrochlori 6-04 to exceed l de 50 MG 18:00: 400mg/day. Her wright Oral Tablet 00 (Same As: Ultram) Sucralfate No Notes: July Eden emoria 6-04 interfere l 18:00: w/enteral O[place] 00 feeds - Take 1 hr before or 2 hr after antacids, dairy pdt, meals & minerals - On empty stomach. For patients unable to swallow tablet, dissolve in 10mL - 30mL of water or juice and stir before giving. (Same As: Carafate) tramadol No Notes: Not Mem oria hydrochlori 6-04 to exceed l de 50 MG 18:00: 400mg/day. Her wright Oral Tablet 00 (Same As: Ultram) Sucralfate No Notes: July emoria 6-04 interfere l 18:00: w/enteral Otilio [...] e 6-04 Tablet l 17:07: should not [place] 00 be chewed or crushed. (Same as: Protonix) Isosorbide No Notes: Memor ia 6-04 (Same l 17:07: as:Imdur) [place] 00 "Do Not Crush" Take on empty stomach/ full glass of water. Do not crush pantoprazol No Notes: Levy mike e 6-04 Tablet l 17:07: should not [place] 00 be chewed or crushed. (Same as: Protonix) Isosorbide No Notes: Memor ia 6-04 (Same l 17:07: as:Imdur) [place] 00 "Do Not Crush" Take on empty stomach/ full glass of water. Do not crush pantoprazol No Notes: Levy mike e 6-04 Tablet l 17:07: should not [place] 00 be chewed or crushed. (Same as: Protonix) Isosorbide No Notes: Memor ia 6-04 (Same l 17:07: as:Imdur) [place] 00 "Do Not Crush" Take on empty stomach/ full glass of water. Do not crush pantoprazol No Notes: Levy mike e 6-04 Tablet l 17:07: should not [place] 00 be chewed or crushed. (Same as: Protonix) Isosorbide No Notes: Memor ia 6-04 (Same l 17:07: as:Imdur) [place] 00 "Do Not Crush" Take on empty stomach/ full glass of water. Do not crush pantoprazol 2018- No Notes: Levy mike e 6-04 Tablet l 17:07: should not [place] 00 be chewed or crushed. (Same as: Protonix) Isosorbide No Notes: Memor ia 6-04 (Same l 17:07: as:Imdur) [place] 00 "Do Not Crush" Take on empty stomach/ full glass of water. Do not crush pantoprazol No Notes: Levy mike e 6-04 Tablet l 17:07: should not [place] 00 be chewed or crushed. (Same as: [...] ia 6-04 (Same as: l 17:05: Prinivil, [place] 00 Zestril) lisinopril No Notes: Memor ia 6-04 (Same as: l 17:05: Prinivil, [place] 00 Zestril) lisinopril No Notes: Memor ia 6-04 (Same as: l 17:05: Prinivil, [place] 00 Zestril) lisinopril No Notes: Memor ia 6-04 (Same as: l 17:05: Prinivil, [place] 00 Zestril) lisinopril No Notes: Memor ia 6-04 (Same as: l 17:05: Prinivil, [place] 00 Zestril) lisinopril No Notes: Memor ia 6-04 (Same as: l 17:05: Prinivil, [place] 00 Zestril) lisinopril No Notes: Memor ia 6-04 (Same as: l 17:05: Prinivil, [place] 00 Zestril) lisinopril No Notes: Memor ia 6-04 (Same as: l 17:05: Prinivil, [place] 00 Zestril) Escitalopra No Notes: Levy mike m 6-04 (Same as: l 17:04: Lexapro) [place] hydrochloro No Notes: Levy mike thiazide 25 [...] m 6-04 (Same as: l 17:04: Lexapro) [place] hydrochloro No Notes: Levy mike thiazide 25 [...] m 6-04 (Same as: l 17:04: Lexapro) [place] hydrochloro No Notes: Levy mike thiazide 25 6-04 (Same as: l mg oral 17:04: Hydrodiuri Herm edwin tablet 00 l) With food. Tums No Notes: Memoria 6- (Same As: l 16:57: Tums) [place] 00 Calcium Carbonate 500 mg = 200 mg elemental calcium Dose = mg calcium carbonate ( mg elemental calcium) No Notes: [facility]oria 6- (Same As: l 16:57: Tums) [place] 00 Calcium Carbonate 500 mg = 200 mg elemental calcium Dose = mg calcium carbonate ( mg elemental calcium) No Notes: [facility] 6- (Same As: l 16:57: Tums) [place] 00 Calcium Carbonate 500 mg = 200 mg elemental calcium Dose = mg calcium carbonate ( mg elemental calcium) No Notes: [facility]oria 6- (Same As: l 16:57: Tums) [place] 00 Calcium Carbonate 500 mg = 200 mg elemental calcium Dose = mg calcium carbonate ( mg elemental calcium) No Notes: Memoria 6- (Same As: l 16:57: Tums) [place] 00 Calcium Carbonate 500 mg = 200 mg elemental calcium Dose = mg calcium carbonate ( mg elemental calcium) s No Notes: [facility]oria 6-04 (Same As: l 16:57: Tums) [place] 00 Calcium Carbonate 500 mg = 200 mg elemental calcium Dose = mg calcium carbonate ( mg elemental calcium) Tums No Notes: [facility]oria 6-04 (Same As: l 16:57: Tums) [place] 00 Calcium Carbonate 500 mg = 200 mg elemental calcium Dose = mg calcium carbonate ( mg elemental calcium) Tums No Notes: [facility]oria 6-04 (Same As: l 16:57: Tums) [place] 00 Calcium Carbonate 500 mg = 200 mg elemental calcium Dose = mg calcium carbonate ( mg elemental calcium) Morphine No Notes: [facility]oria 6-04 (Same l 14:58: as:MORPhin [place] 00 e Sulfate) Morphine No Notes: [facility]oria 6-04 (Same l 14:58: as:MORPhin [place] 00 e Sulfate) Morphine No Notes: [facility] 6-04 (Same l 14:58: as:MORPhin [place] 00 e Sulfate) Morphine No Notes: Memoria [...] Notes: [facility]oria 6-04 (Same l 14:58: as:MORPhin [place] 00 e Sulfate) Saline No Notes: [facility] Flush 0.9% 6-04 (Same as: l 14:00: BD [place] 00 Posiflush) Saline No Notes: [facility] Flush 0.9% 6-04 (Same as: l 14:00: BD [place] 00 Posiflush) Saline No Notes: [facility] Flush 0.9% 6-04 (Same as: l 14:00: BD [place] 00 Posiflush) Saline No Notes: [facility] Flush 0.9% 6-04 (Same as: l 14:00: BD [place] 00 Posiflush) Saline No Notes: [facility] Flush 0.9% 6-04 (Same as: l 14:00: BD [place] 00 Posiflush) Saline No Notes: [facility] Flush 0.9% 6-04 (Same as: l 14:00: BD [place] 00 Posiflush) Saline No Notes: [facility] Flush 0.9% 6-04 (Same as: l 14:00: BD [place] 00 Posiflush) Saline No Notes: Mem[facility] Flush [...] Levy mike 6-04 For l 11:43: SUBCUTANEO [place] 00 US use only ketOROLAC 2018-0 No 4 days Memor ia 30 mg/mL 6-04 l injectable 11:43: MEDICATION H ermann solution 00 WASTE Product Size: 30 mg Product Wasted: ___ mg Sumatriptan No Notes: Levy mike 6-04 For l 11:43: SUBCUTANEO [place] 00 US use only ketOROLAC 20190 No 4 days Memor ia 30 mg/mL 6-04 l injectable 11:43: MEDICATION H ermann solution 00 WASTE Product Size: 30 mg Product Wasted: ___ mg Sumatriptan 2019-0 No Notes: Levy mike 6-04 For l 11:43: SUBCUTANEO [place] 00 US use only ketOROLAC 2019-0 No 4 days Memor ia 30 mg/mL 6-04 l injectable 11:43: MEDICATION H ermann solution 00 WASTE Product Size: 30 mg Product Wasted: ___ mg Sumatriptan 2019- No Notes: Levy mike 6-04 For l 11:43: SUBCUTANEO [place] 00 US use only ketOROLAC 2019-0 No 4 days Memor ia 30 mg/mL 6-04 l injectable 11:43: MEDICATION H ermann solution 00 WASTE Product Size: 30 mg Product Wasted: ___ mg Sumatriptan 2019- No Notes: Levy mike 6-04 For l 11:43: SUBCUTANEO [place] 00 US use only ketOROLAC 2019-0 No 4 days Memor ia 30 mg/mL 6-04 l injectable 11:43: MEDICATION H ermann solution 00 WASTE Product Size: 30 mg Product Wasted: ___ mg Sumatriptan 2019- No Notes: Levy mike 6-04 For l 11:43: SUBCUTANEO [place] 00 US use only ketOROLAC 2019-0 No 4 days Memor ia 30 mg/mL 6-04 l injectable 11:43: MEDICATION H ermann solution 00 WASTE Product Size: 30 mg Product Wasted: ___ mg Sumatriptan 2019-0 No Notes: Levy mike 6-04 For l 11:43: SUBCUTANEO [place] 00 US use only Aspirin 81 2019-0 No Notes: Do Me moria MG Enteric 6-04 not crush l Coated 04:00: or chew. [place] Tablet 00 (Same As: Ecotrin) Aspirin 81 2019-0 No Notes: Do Me moria MG Enteric 6-04 not crush l Coated 04:00: or chew. [place] Tablet 00 (Same As: Ecotrin) Aspirin 81 2019-0 No Notes: Do Me moria MG Enteric 6-04 not crush l Coated 04:00: or chew. [place] Tablet 00 (Same As: Ecotrin) Aspirin 81 No Notes: Do Me moria MG Enteric 6-04 not crush l Coated 04:00: or chew. [place] Tablet 00 (Same As: Ecotrin) Aspirin 81 0 No Notes: Do Me moria MG Enteric 6-04 not crush l Coated 04:00: or chew. [place] Tablet 00 (Same As: Ecotrin) Aspirin 81 No Notes: Do Me moria MG Enteric 6-04 not crush l Coated 04:00: or chew. [place] Tablet 00 (Same As: Ecotrin) Aspirin 81 No Notes: Do Me moria MG Enteric 6-04 not crush l Coated 04:00: or chew. [place] Tablet 00 (Same As: Ecotrin) Aspirin 81 No Notes: Do Me moria MG Enteric 6-04 not crush l Coated 04:00: or chew. [place] Tablet 00 (Same As: Ecotrin) Saline No Notes: [facility] Flush 0.9% 6-04 (Same as: l 03:59: BD [place] 00 Posiflush) Sodium 0 No 1,000 mL, Memori a Chloride 6-04 Rate: 100 l 0.9% IV 03:59: ml/hr, [place] 1,000 mL 00 Infuse over: 10 hr, Route: IV, Dosing Weight 190.909 kg, Total Volume: 1,000, Start date: 08/22/18 22:59:00 CDT, Duration: 30 day, Stop date: 09/21/18 22:58:00 CDT, 3.16, m2 Acetaminoph 2019 No Notes: Do M emoria en 6-04 not exceed l 03:59: 4 gm/day. [place] 00 (Same as: Tylenol) Saline No Notes: [facility] Flush 0.9% 6-04 (Same as: l 03:59: BD [place] 00 Posiflush) Sodium 2019 No 1,000 mL, Memori a Chloride 6-04 Rate: 100 l 0.9% IV 03:59: ml/hr, [place] 1,000 mL 00 Infuse over: 10 hr, Route: IV, Dosing Weight 190.909 kg, Total Volume: 1,000, Start date: 08/22/18 22:59:00 CDT, Duration: 30 day, Stop date: 09/21/18 22:58:00 CDT, 3.16, m2 Acetaminoph No Notes: Do M emoria en 6-04 not exceed l 03:59: 4 gm/day. [place] 00 (Same as: Tylenol) Saline No Notes: [facility] Flush 0.9% 6-04 (Same as: l 03:59: BD [place] 00 Posiflush) Sodium No 1,000 mL, Memori [...] 0.9% 6-04 (Same as: l 03:59: BD [place] 00 Posiflush) Sodium No 1,000 mL, Memori a Chloride 6-04 Rate: 100 l 0.9% IV 03:59: ml/hr, [place] 1,000 mL 00 Infuse over: 10 hr, Route: IV, Dosing Weight 190.909 kg, Total Volume: 1,000, Start date: 08/22/18 22:59:00 CDT, Duration: 30 day, Stop date: 09/21/18 22:58:00 CDT, 3.16, m2 Acetaminoph 2019 No Notes: Do M emoria en 604 not exceed l 03:59: 4 gm/day. [place] 00 (Same as: Tylenol) Saline No Notes: [facility] Flush 0.9% 6-04 (Same as: l 03:59: BD [place] 00 Posiflush) Sodium No 1,000 mL, Memori a Chloride 6-04 Rate: 100 l 0.9% IV 03:59: ml/hr, [place] 1,000 mL 00 Infuse over: 10 hr, Route: IV, Dosing Weight 190.909 kg, Total Volume: 1,000, Start date: 08/22/18 22:59:00 CDT, Duration: 30 day, Stop date: 09/21/18 22:58:00 CDT, 3.16, m2 Acetaminoph No Notes: Do M emoria en 08-23 not exceed l 03:59: 4 gm/day. [place] 00 (Same as: Tylenol) Saline No Notes: [facility] Flush 0.9% 6-04 (Same as: l 03:59: BD [place] 00 Posiflush) Sodium No 1,000 mL, Memori a Chloride 6-04 Rate: 100 l 0.9% IV 03:59: ml/hr, [place] 1,000 mL 00 Infuse over: 10 hr, Route: IV, Dosing Weight 190.909 kg, Total Volume: 1,000, Start date: 08/22/18 22:59:00 CDT, Duration: 30 day, Stop date: 09/21/18 22:58:00 CDT, 3.16, m2 Acetaminoph No Notes: Do M emoria en 08-23 not exceed l 03:59: 4 gm/day. [place] 00 (Same as: Tylenol) Saline No Notes: [facility] Flush 0.9% 6-04 (Same as: l 03:59: BD [place] 00 Posiflush) Sodium No 1,000 mL, Memori [...] 0.9% 6-04 (Same as: l 03:59: BD Posiflush) Sodium No 1,000 mL, Memori a Chloride -04 Rate: 100 l 0.9% IV 03:59: ml/hr, [place] 1,000 mL 00 Infuse over: 10 hr, Route: IV, Dosing Weight 190.909 kg, Total Volume: 1,000, Start date: 08/22/18 22:59:00 CDT, Duration: 30 day, Stop date: 09/21/18 22:58:00 CDT, 3.16, m2 Acetaminoph No Notes: Do M emoria en - not exceed l 03:59: 4 gm/day. (Same as: Tylenol) Aspirin No Notes: Memoria 6-04 Take with l 03:12: food. Aspirin No Notes: [facility]oria 6-04 Take with l 03:12: food. Aspirin No Notes: Memoria 6-04 Take with l 03:12: food. Aspirin No Notes: Memoria 6-04 Take with l 03:12: food. Aspirin No Notes: Memoria 6-04 Take with l 03:12: food. Aspirin No Notes: Memoria 6-04 Take with l 03:12: food. Aspirin No Notes: Memoria 6-04 Take with l 03:12: food. Aspirin No Notes: Memoria 6-04 Take with l 03:12: food. Morphine No 6 mg, Memoria 6-04 Route: l 01:44: IVP, Drug form: SOLN, ONCE, Dosing Weight 190.909, kg, Priority: STAT, Start date: 08/22/18 20:44:00 CDT, Stop date: 08/22/18 20:44:00 CDT Morphine No 6 mg, Memoria 6-04 Route: l 01:44: IVP, Drug form: SOLN, ONCE, Dosing Weight 190.909, kg, Priority: STAT, Start date: 08/22/18 20:44:00 CDT, Stop date: 08/22/18 20:44:00 CDT Morphine 2019-0 No 6 mg, Memoria 6-04 Route: l 01:44: IVP, Drug [place] 00 form: SOLN, ONCE, Dosing Weight 190.909, kg, Priority: STAT, Start date: 08/22/18 20:44:00 CDT, Stop date: 08/22/18 20:44:00 CDT Morphine 2019-0 No 6 mg, Memoria 6-04 Route: l 01:44: IVP, Drug [place] 00 form: SOLN, ONCE, Dosing Weight 190.909, [...] Memoria 6-04 Route: l 01:44: IVP, Drug [place] 00 form: SOLN, ONCE, Dosing Weight 190.909, kg, Priority: STAT, Start date: 08/22/18 20:44:00 CDT, Stop date: 08/22/18 20:44:00 CDT Morphine 2019-0 No 6 mg, Memoria 6-04 Route: l 01:44: IVP, Drug [place] 00 form: SOLN, ONCE, Dosing Weight 190.909, kg, Priority: STAT, Start date: 08/22/18 20:44:00 CDT, Stop date: 08/22/18 20:44:00 CDT Morphine 2019-0 No 6 mg, Memoria 6-04 Route: l 01:44: IVP, Drug [place] 00 form: SOLN, ONCE, Dosing Weight 190.909, kg, Priority: STAT, Start date: 08/22/18 20:44:00 CDT, Stop date: 08/22/18 20:44:00 CDT Xylocaine 2019-0 No Notes: Memori a Viscous 2% 6-03 [...] hydroxide/M 6-03 (aluminum l g 23:55: hydroxide- [place] hydroxide/s 00 magnesium imethicone hyd-simeth icone 200-200-20 mg/5ml 30 ml ud ZENIA) Al No Notes: Memoria hydroxide/M 6-03 (aluminum l g 23:55: hydroxide- [place] hydroxide/s 00 magnesium imethicone hyd-simeth icone 200-200-20 mg/5ml 30 ml ud ZENIA) Al 0 No Notes: Memoria hydroxide/M 6-03 (aluminum l g 23:55: hydroxide- [place] hydroxide/s 00 magnesium imethicone hyd-simeth icone 200-200-20 mg/5ml 30 ml ud ZENIA) Al No Notes: Memoria hydroxide/M 6-03 (aluminum l g 23:55: hydroxide- [place] hydroxide/s 00 magnesium imethicone hyd-simeth icone 200-200-20 mg/5ml 30 ml ud ZENIA) Al 2019-0 No Notes: Memoria hydroxide/M 6-03 (aluminum l g 23:55: hydroxide- [place] hydroxide/s 00 magnesium imethicone hyd-simeth icone 200-200-20 mg/5ml 30 ml ud ZENIA) Al No Notes: Memoria hydroxide/M 6-03 (aluminum l g 23:55: hydroxide- [place] hydroxide/s 00 magnesium imethicone hyd-simeth icone 200-200-20 mg/5ml 30 ml ud ZENIA) Al No Notes: Memoria hydroxide/M 6-03 (aluminum l g 23:55: hydroxide- [place] hydroxide/s 00 magnesium imethicone hyd-simeth icone 200-200-20 mg/5ml 30 ml ud ZENIA) Al No Notes: Memoria hydroxide/M 6-03 (aluminum l g 23:55: hydroxide- [place] hydroxide/s 00 magnesium imethicone hyd-simeth [...] Stop date: 08/22/18 18:21:00 CDT GI cocktail 2019-0 No 30 mL, Levy mike (aluminum 08-22 Route: PO, l hydroxide/m 23:21: Dosing Herm edwin agnesium 00 Weight hydroxide/l 190.909, idocaine/si kg, ONCE, methicone) STAT, Start date: 08/22/18 18:21:00 CDT, Stop date: 08/22/18 18:21:00 CDT GI cocktail 0 No 30 mL, Levy mike (aluminum 08-22 Route: PO, l hydroxide/m 23:21: Dosing Herm edwin agnesium 00 Weight hydroxide/l 190.909, idocaine/si kg, ONCE, methicone) STAT, Start date: 08/22/18 18:21:00 CDT, Stop date: 08/22/18 18:21:00 CDT GI cocktail 2018-0 No 30 mL, Levy mike (aluminum 6 Route: PO, l hydroxide/m 23:21: Dosing Herm edwin agnesium 00 Weight hydroxide/l 190.909, idocaine/si kg, ONCE, methicone) STAT, Start date: 08/22/18 18:21:00 CDT, Stop date: 08/22/18 18:21:00 CDT GI cocktail 0 No 30 mL, Levy mike (aluminum 6 Route: PO, l hydroxide/m 23:21: Dosing Herm edwin agnesium 00 Weight hydroxide/l 190.909, idocaine/si kg, ONCE, methicone) STAT, Start date: 08/22/18 18:21:00 CDT, Stop date: 08/22/18 18:21:00 CDT GI cocktail 2018-0 No 30 mL, Levy mike (aluminum 603 Route: PO, l hydroxide/m 23:21: Dosing Herm edwin agnesium 00 Weight hydroxide/l 190.909, idocaine/si kg, ONCE, methicone) STAT, Start date: 08/22/18 18:21:00 CDT, Stop date: 08/22/18 18:21:00 CDT Reglan 2018-0 No Notes: Memoria 08-22 (Same as: l 21:06: Reglan) [place] 00 NS (Bolus) 0 No 1,000 mL, Me moria IV 6-03 1,000 l 21:06: ml/hr, [place] 00 Infuse Over: 1 hr, Route: IV, 1,000, Drug form: INJ, ONCE, Priority: STAT, Dosing Weight 190.909 kg, Start date: 08/22/18 16:06:00 CDT, Stop date: 08/22/18 16:06:00 CDT ketOROLAC 20190 No 4 days Memor ia 30 mg/mL 08-22 l injectable 21:06: MEDICATION H ermann solution 00 WASTE Product Size: 30 mg Product Wasted: ___ mg Benadryl No Notes: Memoria 6- (Same as: l 21:06: Benadryl) [place] 00 Acetaminoph No Notes: Max Memoria en 6- acetaminop l 21:06: hen 4000 [place] 00 mg/day (4 gm/day). (Same as: Tylenol Extra Strength) Reglan No Notes: Memoria 6- (Same as: l 21:06: Reglan) [place] 00 NS (Bolus) No 1,000 mL, Me moria IV 08-22 1,000 l 21:06: ml/hr, [place] 00 Infuse Over: 1 hr, Route: IV, 1,000, Drug form: INJ, ONCE, Priority: STAT, Dosing Weight 190.909 kg, Start date: 08/22/18 16:06:00 CDT, Stop date: 08/22/18 16:06:00 CDT ketOROLAC 20190 No 4 days Memor ia 30 mg/mL 08-22 l injectable 21:06: MEDICATION H ermann solution 00 WASTE Product Size: 30 mg Product Wasted: ___ mg Benadryl No Notes: Memoria 6-03 (Same as: l 21:06: Benadryl) [place] 00 Acetaminoph No Notes: Max Memoria en 6-03 acetaminop l 21:06: hen 4000 [place] 00 mg/day (4 gm/day). (Same as: Tylenol Extra Strength) Reglan No Notes: Memoria 6-03 (Same as: l 21:06: Reglan) [place] 00 NS (Bolus) No 1,000 mL, Me moria IV 6-03 1,000 l 21:06: ml/hr, Otilio 00 Infuse [...] 6-03 (Same as: l 21:06: Benadryl) Otilio Acetaminoph No Notes: Max Memoria en 6- acetaminop l 21:06: hen 4000 [place] 00 mg/day (4 gm/day). (Same as: Tylenol Extra Strength) Reglan No Notes: Memoria 6-03 (Same as: l 21:06: Reglan) [place] 00 NS (Bolus) No 1,000 mL, Me moria IV 6-03 1,000 l 21:06: ml/hr, [place] 00 Infuse Over: 1 hr, Route: IV, 1,000, Drug form: INJ, ONCE, Priority: STAT, Dosing Weight 190.909 kg, Start date: 08/22/18 16:06:00 CDT, Stop date: 08/22/18 16:06:00 CDT ketOROLAC 0 No 4 days Memor ia 30 mg/mL 08-22 l injectable 21:06: MEDICATION H ermann solution 00 WASTE Product Size: 30 mg Product Wasted: ___ mg Benadryl No Notes: Memoria 6-03 (Same as: l 21:06: Benadryl) [place]til[place] 00 Acetaminoph No Notes: Max Memoria en 6-03 acetaminop l 21:06: hen 4000 [place] 00 mg/day (4 gm/day). (Same as: Tylenol Extra Strength) Reglan No Notes: Memoria 6-03 (Same as: l 21:06: Reglan) [place] 00 NS (Bolus) No 1,000 mL, Me moria IV 6- 1,000 l 21:06: ml/hr, [place] 00 Infuse Over: 1 hr, Route: IV, 1,000, Drug form: INJ, ONCE, Priority: STAT, Dosing Weight 190.909 kg, Start date: 08/22/18 16:06:00 CDT, Stop date: 08/22/18 16:06:00 CDT ketOROLAC 0 No 4 days Memor ia 30 mg/mL 08-22 l injectable 21:06: MEDICATION H ermann solution 00 WASTE Product Size: 30 mg Product Wasted: ___ mg Benadryl No Notes: Memoria 6- (Same as: l 21:06: Benadryl) Otilio 00 Acetaminoph No Notes: Max Memoria en 08-22 acetaminop l 21:06: hen 4000 [place] 00 mg/day (4 gm/day). (Same as: Tylenol Extra Strength) Reglan No Notes: Memoria 6-03 (Same as: l 21:06: Reglan) [place] 00 NS (Bolus) No 1,000 mL, Me moria IV - 1,000 l 21:06: ml/hr, [place] 00 Infuse Over: 1 hr, Route: IV, 1,000, Drug form: INJ, ONCE, Priority: STAT, Dosing Weight 190.909 kg, Start date: 08/22/18 16:06:00 CDT, Stop date: 08/22/18 16:06:00 CDT ketOROLAC 0 No 4 days Memor ia 30 mg/mL 08-22 l injectable 21:06: MEDICATION H ermann solution 00 WASTE Product Size: 30 mg Product Wasted: ___ mg Benadryl No Notes: Memoria 6-03 (Same as: l 21:06: Benadryl) [place] 00 Acetaminoph No Notes: Max Memoria en - acetaminop l 21:06: hen 4000 [place] 00 mg/day (4 gm/day). (Same as: Tylenol Extra Strength) Reglan No Notes: Memoria 6-03 (Same as: l 21:06: Reglan) [place] 00 NS (Bolus) No 1,000 mL, Me moria IV 6-03 1,000 l 21:06: ml/hr, [place] 00 Infuse Over: 1 hr, Route: IV, 1,000, Drug form: INJ, ONCE, Priority: STAT, Dosing Weight 190.909 kg, Start date: 08/22/18 16:06:00 CDT, Stop date: 08/22/18 16:06:00 CDT ketOROLAC 0 No 4 days Memor ia 30 mg/mL 08-22 l injectable 21:06: MEDICATION H ermann solution 00 WASTE Product Size: 30 mg Product Wasted: ___ mg Benadryl No Notes: Mem[facility] 6- (Same as: l 21:06: Benadryl) Otil[place] 00 Acetaminoph No Notes: Max Memoria en 08-22 acetaminop l 21:06: hen 4000 [place] 00 mg/day (4 gm/day). (Same as: Tylenol Extra Strength) Reglan No Notes: Memoria 6-03 (Same as: l 21:06: Reglan) Otilio 00 NS (Bolus) No 1,000 mL, Me moria IV 6-03 1,000 l 21:06: ml/hr, Otilio 00 Infuse Over: 1 hr, Route: IV, 1,000, Drug form: INJ, ONCE, Priority: STAT, Dosing Weight 190.909 kg, Start date: 08/22/18 16:06:00 CDT, Stop date: 08/22/18 16:06:00 CDT ketOROLAC 0 No 4 days Memor ia 30 mg/mL 08-22 l injectable 21:06: MEDICATION H ermann solution 00 WASTE Product Size: 30 mg Product Wasted: ___ mg Benadryl No Notes: Memoria 6-03 (Same as: l 21:06: Benadryl) [place] 00 Acetaminoph No Notes: Max Memoria en 03 acetaminop l 21:06: hen 4000 Otilio 00 mg/day (4 gm/day). (Same as: Tylenol Extra Strength) Saline No Notes: Memoria Flush 0.9% 6-03 (Same as: l 21:05: BD [place] 00 Posiflush) Saline No Notes: Memoria Flush 0.9% 6-03 (Same as: l 21:05: BD [place] 00 Posiflush) Saline No Notes: Memoria Flush 0.9% 6-03 (Same as: l 21:05: BD [place] 00 Posiflush) Saline No Notes: Memoria Flush 0.9% 6-03 (Same as: l 21:05: BD Otilio 00 Posiflush) Saline No Notes: Memoria Flush 0.9% 6-03 (Same as: l 21:05: BD Otilio 00 Posiflush) Saline No Notes: Memoria Flush 0.9% 6-03 (Same as: l 21:05: BD Otilio 00 Posiflush) Saline No Notes: Memoria Flush 0.9% 6-03 (Same as: l 21:05: BD [place] 00 Posiflush) Saline No Notes: Memoria Flush [...] CDT, Stop date: 08/18/18 3:48:00 CDT ketOROLAC 0 No 15 mg, Memori a 15 mg/mL [...] CDT, Stop date: 08/18/18 3:48:00 CDT {74 2019-0 Yes See Memoria (apixaban 5 5-30 Instructio l MG Oral 08:45: ns, 2 [place] Tablet 00 tablets [Eliquis]) BID x 7 } Pack days then [Eliquis 1 tablet 30-Day BID Starter thereafter Pack] , # 50 tab, 0 Refill(s) { Yes See Memoria (apixaban 5 5-30 Instructio l MG Oral 08:45: ns, 2 [place] Tablet 00 tablets [Eliquis]) BID x 7 } Pack days then [Eliquis 1 tablet 30-Day BID Starter thereafter Pack] , # 50 tab, 0 Refill(s) { Yes See Memoria (apixaban 5 5-30 Instructio l MG Oral 08:45: ns, 2 [place] Tablet 00 tablets [Eliquis]) BID x 7 } Pack days then [Eliquis 1 tablet 30-Day BID Starter thereafter Pack] , # 50 tab, 0 Refill(s) { Yes See Memoria (apixaban 5 5-30 Instructio l MG Oral 08:45: ns, 2 [place] Tablet 00 tablets [Eliquis]) BID x 7 } Pack days then [Eliquis 1 tablet 30-Day BID Starter thereafter Pack] , # 50 tab, 0 Refill(s) { Yes See Memoria (apixaban 5 5-30 Instructio l MG Oral 08:45: ns, 2 [place] Tablet 00 tablets [Eliquis]) BID x 7 } Pack days then [Eliquis 1 tablet 30-Day BID Starter thereafter Pack] , # 50 tab, 0 Refill(s) { Yes See Memoria (apixaban 5 5-30 Instructio l MG Oral 08:45: ns, 2 [place] Tablet 00 tablets [Eliquis]) BID x 7 } Pack days then [Eliquis 1 tablet 30-Day BID Starter thereafter Pack] , # 50 tab, 0 Refill(s) { Yes See Memoria (apixaban 5 5-30 Instructio [...] , # 50 tab, 0 Refill(s) Ondansetron 2019 Yes 4 mg = 1 Me moria [...] day, # 6 tab, 0 Refill(s) Ondansetron 2019 Yes 4 mg = 1 Me moria [...] day, # 6 tab, 0 Refill(s) Ondansetron 2019 Yes 4 mg = 1 Me moria [...] CDT, Duration: 1 doses or times Omnipaque 2019-0 No 45 Memoria 300 5-30 mL/min, l injectable 07:12: STAT, Jorge n solution 00 Start date: 08/18/18 2:12:00 CDT, Duration: 1 doses or times Omnipaque 2019-0 No 45 Memoria 300 5-30 mL/min, l injectable 07:12: STAT, Jorge n solution 00 Start date: 08/18/18 2:12:00 CDT, Duration: 1 doses or times Omnipaque 2019-0 No 45 Memoria 300 5-30 mL/min, l injectable 07:12: STAT, Jorge n solution 00 Start date: 08/18/18 2:12:00 CDT, Duration: 1 doses or times sucralfate 2019-0 Yes 1 gm = 1 Mem oria 1 g oral 5-24 tab, PO, l tablet 10:52: QID, # 28 Jorge n 00 tab, 0 Refill(s) sucralfate 2019-0 Yes 1 gm = 1 Mem oria 1 g oral 5-24 tab, PO, l tablet 10:52: QID, # 28 Jorge n 00 tab, 0 Refill(s) sucralfate 2019-0 Yes 1 gm = 1 Mem oria 1 g oral 5-24 tab, PO, l tablet 10:52: QID, # 28 Jorge n 00 tab, 0 Refill(s) sucralfate 2019-0 Yes 1 gm = 1 Mem oria 1 g oral 5-24 tab, PO, l tablet 10:52: QID, # 28 Jorge n 00 tab, 0 Refill(s) sucralfate 2019-0 Yes 1 gm = 1 Mem oria 1 g oral 5-24 tab, PO, l tablet 10:52: QID, # 28 Jorge n 00 tab, 0 Refill(s) sucralfate 2019-0 Yes 1 gm = 1 Mem oria 1 g oral 5-24 tab, PO, l tablet 10:52: QID, # 28 Jorge n 00 tab, 0 Refill(s) sucralfate 2019-0 Yes 1 gm = 1 Mem oria 1 g oral 5-24 tab, PO, l tablet 10:52: QID, # 28 Jorge n 00 tab, 0 Refill(s) sucralfate 2019-0 Yes 1 gm = 1 Mem oria 1 g oral 5-24 tab, PO, l tablet 10:52: QID, # 28 Jorge n 00 tab, 0 Refill(s) Famotidine 2019-0 Yes 20 mg = 1 Me moria 20 MG Oral 5-24 tab, PO, l Tablet 10:51: BID, # 10 Jorge n [Pepcid] 00 tab, 0 Refill(s) Famotidine 2019-0 Yes 20 mg = 1 Me moria 20 MG Oral 5-24 tab, PO, l Tablet 10:51: BID, # 10 Jorge n [Pepcid] 00 tab, 0 Refill(s) Famotidine 2019-0 Yes 20 mg = 1 Me moria 20 MG Oral 5-24 tab, PO, l Tablet 10:51: BID, # 10 Jorge n [Pepcid] 00 tab, 0 Refill(s) Famotidine 2018-0 Yes 20 mg = 1 Me moria 20 MG Oral 5-24 tab, PO, l Tablet 10:51: BID, # 10 Jorge n [Pepcid] 00 tab, 0 Refill(s) Famotidine 2019-0 Yes 20 mg = 1 Me moria 20 MG Oral 5-24 tab, PO, l Tablet 10:51: BID, # 10 Jorge n [Pepcid] 00 tab, 0 Refill(s) Famotidine 2019-0 Yes 20 mg = 1 Me moria 20 MG Oral 5-24 tab, PO, l Tablet 10:51: BID, # 10 Jorge n [Pepcid] 00 tab, 0 Refill(s) Famotidine 2019-0 Yes 20 mg = 1 Me moria 20 MG Oral 5-24 tab, PO, l Tablet 10:51: BID, # 10 Jorge n [Pepcid] 00 tab, 0 Refill(s) Famotidine 2019-0 Yes 20 mg = 1 Me moria 20 MG Oral 5-24 tab, PO, l Tablet 10:51: BID, # 10 Jorge n [Pepcid] 00 tab, 0 Refill(s) Al 2019-0 No Notes: Memoria hydroxide/M 5-24 (aluminum l [...] hydroxide/M 5-24 (aluminum l g 09:32: hydroxide- [place] hydroxide/s 00 magnesium imethicone hyd-simeth icone 200-200-20 [...] hydroxide/M 5-24 (aluminum l g 09:32: hydroxide- [place] hydroxide/s 00 magnesium imethicone hyd-simeth icone 200-200-20 [...] hydroxide/M 5-24 (aluminum l g 09:32: hydroxide- [place] hydroxide/s 00 magnesium imethicone hyd-simeth icone 200-200-20 mg/5ml 30 ml ud ZENIA) Xylocaine No Notes: Memori a Viscous 2% 5-24 (Same as: l mucous 09:32: Xylocaine) Kelsey nn membrane 00 solution GI cocktail No 30 mL, Levy mike (aluminum 5-24 Route: PO, l hydroxide/m 09:30: Dosing Herm edwin agnesium 00 Weight hydroxide/l 190.909, idocaine/si kg, ONCE, methicone) STAT, Start date: 08/12/18 4:30:00 CDT, Stop date: 08/12/18 4:30:00 CDT GI cocktail No 30 mL, Levy mike (aluminum 5-24 Route: PO, l hydroxide/m 09:30: Dosing Herm edwin agnesium 00 Weight hydroxide/l 190.909, idocaine/si kg, ONCE, methicone) STAT, Start date: 08/12/18 4:30:00 CDT, Stop date: 08/12/18 4:30:00 CDT GI cocktail No 30 mL, Levy mike (aluminum 5-24 Route: PO, l hydroxide/m 09:30: Dosing Herm edwin agnesium 00 Weight hydroxide/l 190.909, idocaine/si kg, ONCE, methicone) STAT, Start date: 08/12/18 4:30:00 CDT, Stop date: 08/12/18 4:30:00 CDT GI cocktail 2019-0 No 30 mL, Levy mike (aluminum 5-24 [...] CDT, Stop date: 08/12/18 4:30:00 CDT Omnipaque 2019-0 No 45 Memoria 300 5-24 mL/min, l injectable 09:14: STAT, Jorge n solution 00 Start date: 08/12/18 4:14:00 CDT, Stop date: 08/12/18 4:14:00 CDT Omnipaque 2019-0 No 45 Memoria 300 5-24 mL/min, l injectable 09:14: STAT, Jorge n solution 00 Start date: 08/12/18 4:14:00 CDT, Stop date: 08/12/18 4:14:00 CDT Omnipaque 2019-0 No 45 Memoria 300 5-24 mL/min, l injectable 09:14: STAT, Jorge n solution 00 Start date: 08/12/18 4:14:00 CDT, Stop date: 08/12/18 4:14:00 CDT Omnipaque 2019-0 No 45 Memoria 300 5-24 mL/min, l injectable 09:14: STAT, Jorge n solution 00 Start date: 08/12/18 4:14:00 CDT, Stop date: 08/12/18 4:14:00 CDT Omnipaque 2019-0 No 45 Memoria 300 5-24 mL/min, l injectable 09:14: STAT, Jorge n solution 00 Start date: 08/12/18 4:14:00 CDT, Stop date: 08/12/18 4:14:00 CDT Omnipaque 2019-0 No 45 Memoria 300 5-24 mL/min, l injectable 09:14: STAT, Jorge n solution 00 Start date: 08/12/18 4:14:00 CDT, Stop date: 08/12/18 4:14:00 CDT Omnipaque 2019-0 No 45 Memoria 300 5-24 mL/min, l injectable 09:14: STAT, Jorge n solution 00 Start date: 08/12/18 4:14:00 CDT, Stop date: 08/12/18 4:14:00 CDT Omnipaque 2019-0 No 45 Memoria 300 5-24 mL/min, l injectable 09:14: STAT, Jorge n solution 00 Start date: 08/12/18 4:14:00 CDT, Stop date: 08/12/18 4:14:00 CDT Acetaminoph 2019-0 No Notes: Do M emoria en 325 MG / 5-24 not exceed l Hydrocodone 08:49: 4gm/day of [place] Bitartrate 00 acetaminop 10 MG Oral hen. (Same Tablet as: [place] [[place] 325/10) ] Acetaminoph No Notes: Do M emoria en 325 MG / 5-24 not exceed l Hydrocodone 08:49: 4gm/day of [place] Bitartrate 00 acetaminop 10 MG Oral hen. (Same Tablet as: [place] [[place] 325/10) ] Acetaminoph No Notes: Do M emoria en 325 MG / 5-24 not exceed l Hydrocodone 08:49: 4gm/day of [place] Bitartrate 00 acetaminop 10 MG Oral hen. (Same Tablet as: [place] [[place] 325/10) ] Acetaminoph No Notes: Do M emoria en 325 MG / 5-24 not exceed l Hydrocodone 08:49: 4gm/day of [place] Bitartrate 00 acetaminop 10 MG Oral hen. (Same Tablet as: [place] [[place] 325/10) ] Acetaminoph No Notes: Do M emoria en 325 MG / 5-24 not exceed l Hydrocodone 08:49: 4gm/day of [place] Bitartrate 00 acetaminop 10 MG Oral hen. (Same Tablet as: [place] [[place] 325/10) ] Acetaminoph No Notes: Do M emoria en 325 MG / 5-24 not exceed l Hydrocodone 08:49: 4gm/day of [place] Bitartrate 00 acetaminop 10 MG Oral hen. (Same Tablet as: [place] [[place] 325/10) ] Acetaminoph No Notes: Do M emoria en 325 MG / 5-24 not exceed l Hydrocodone 08:49: 4gm/day of [place] Bitartrate 00 acetaminop 10 MG Oral hen. (Same Tablet as: [place] [[place] 325/10) ] Acetaminoph No Notes: Do M emoria en 325 MG / 5-24 not exceed l Hydrocodone 08:49: 4gm/day of [place] Bitartrate 00 acetaminop 10 MG Oral hen. (Same Tablet as: [place] [[place] 325/10) ] Ondansetron No Notes: Levy mike 5-24 (Same as: l 05:41: Zofran) Otilio 00 MEDICATION WASTE Product Size: 4 mg Product Wasted: ___ mg Morphine 2019- No Notes: Memoria 5-24 (Same as: l 05:41: MORPhine [place] 00 Sulfate) Saline No Notes: Memoria Flush 0.9% 5-24 (Same as: l 05:41: BD [place] 00 Posiflush) Ondansetron No Notes: Levy mike 5-24 (Same as: l 05:41: Zofran) [place] 00 MEDICATION WASTE Product Size: 4 mg Product Wasted: ___ mg Morphine 2018- No Notes: Memoria 5-24 (Same as: l 05:41: MORPhine Otilio 00 Sulfate) Saline No Notes: [facility]oria Flush 0.9% 5-24 (Same as: l 05:41: BD [place] 00 Posiflush) Ondansetron No Notes: Levy mike 5-24 (Same as: l 05:41: Zofran) [place] 00 MEDICATION WASTE Product Size: 4 mg Product Wasted: ___ mg Morphine No Notes: Memoria 5-24 (Same as: l 05:41: MORPhine [place] 00 Sulfate) Saline No Notes: [facility]oria Flush 0.9% 5-24 (Same as: l 05:41: BD [place] 00 Posiflush) Ondansetron No Notes: Levy mike 5-24 (Same as: l 05:41: Zofran) Otilio 00 MEDICATION WASTE Product Size: 4 mg Product Wasted: ___ mg Morphine No Notes: Memoria 5-24 (Same as: l 05:41: MORPhine [place] 00 Sulfate) Saline No Notes: [facility]oria Flush 0.9% 5-24 (Same as: l 05:41: BD Otilio 00 Posiflush) Ondansetron No Notes: Levy mike 5-24 (Same as: l 05:41: Zofran) [place] 00 MEDICATION WASTE Product Size: 4 mg [...] 0.9% 5-24 (Same as: l 05:41: BD [place] 00 Posiflush) Ondansetron No Notes: Levy mike 5-24 (Same as: l 05:41: Zofran) Otilio 00 MEDICATION WASTE Product Size: 4 mg Product Wasted: ___ mg Morphine No Notes: Memoria 5-24 (Same as: l 05:41: MORPhine [place] 00 Sulfate) Saline No Notes: [facility]oria Flush 0.9% 5-24 (Same as: l 05:41: BD [place] 00 Posiflush) Ondansetron No Notes: Levy mike 5-24 (Same as: l 05:41: Zofran) Otilio 00 MEDICATION WASTE Product Size: 4 mg Product Wasted: ___ mg Morphine No Notes: Memoria 5-24 (Same as: l 05:41: MORPhine Otilio 00 Sulfate) Saline No Notes: Memoria Flush 0.9% 5-24 (Same as: l 05:41: BD [place] 00 Posiflush) Isosorbide No Notes: Memor ia [...] ia 5-12 (Same as: l 14:00: Prinivil, [place] 00 Zestril) Escitalopra No Notes: Levy mike m 5-12 (Same as: l 14:00: Lexapro) Otilio 00 hydrochloro No Notes: Levy mike thiazide [...] PO, l MG / 14:00: Drug Form: [place] Lisinopril 00 TAB, 20 MG Oral Dosing Tablet Weight 200.142, kg, Daily, Start date: 07/31/18 9:00:00 CDT, Duration: 30 day, Stop date: 08/29/18 9:00:00 CDT lisinopril No Notes: Memor ia 5-12 (Same as: l 14:00: Prinivil, [place] 00 Zestril) Escitalopra No Notes: Levy mike m 5-12 (Same as: l 14:00: Lexapro) Otilio 00 hydrochloro No Notes: Levy mike thiazide [...] Otilio 00 Zestril) Escitalopra No Notes: Levy mike m 5-12 (Same as: l 14:00: Lexapro) [place] hydrochloro No Notes: Levy mike thiazide 25 [...] ia 5-12 (Same as: l 14:00: Prinivil, [place] 00 Zestril) Escitalopra No Notes: Levy mike m 5-12 (Same as: l 14:00: Lexapro) Otilio hydrochloro No Notes: Levy mike thiazide 25 5-12 (Same as: l mg oral 14:00: Hydrodiuri Herm edwin tablet 00 l) With food. Isosorbide No Notes: Memor ia 5-12 (Same l 14:00: as:Imdur) [place] "Do Not Crush" Take on empty stomach/ full glass of water. Do not crush Hydrochloro No 1 tab, Levy mike thiazide 25 5-12 Route: PO, l MG / 14:00: Drug Form: [place] Lisinopril 00 TAB, 20 MG Oral Dosing Tablet Weight 200.142, kg, Daily, Start date: 07/31/18 9:00:00 CDT, Duration: 30 day, Stop date: 08/29/18 9:00:00 CDT lisinopril No Notes: Memor ia 5-12 (Same as: l 14:00: Prinivil, [place] 00 Zestril) Escitalopra No Notes: Levy mike m 5-12 (Same as: l 14:00: Lexapro) [place] hydrochloro No Notes: Levy mike thiazide 25 5-12 (Same as: l mg oral 14:00: Hydrodiuri Herm edwin tablet 00 l) With food. Isosorbide No Notes: Memor ia 5-12 (Same l 14:00: as:Imdur) [place] 00 "Do Not Crush" Take on empty stomach/ full glass of water. Do not crush Hydrochloro No 1 tab, Levy mike thiazide 25 5-12 Route: PO, l MG / 14:00: Drug Form: [place] Lisinopril 00 TAB, 20 MG Oral Dosing Tablet Weight 200.142, kg, Daily, Start date: 07/31/18 9:00:00 CDT, Duration: 30 day, Stop date: 08/29/18 9:00:00 CDT lisinopril No Notes: Memor ia 5-12 (Same as: l 14:00: Prinivil, Otilio 00 Zestril) Escitalopra No Notes: Levy mike m 5-12 (Same as: l 14:00: Lexapro) [place] hydrochloro No Notes: Levy mike thiazide 25 5-12 (Same as: l mg oral 14:00: Hydrodiuri Herm edwin tablet 00 l) With food. Isosorbide No Notes: Memor ia 5-12 (Same l 14:00: as:Imdur) [place] "Do Not Crush" Take on empty stomach/ full glass of water. Do not crush Hydrochloro No 1 tab, Levy mike thiazide 25 5-12 Route: PO, l MG / 14:00: Drug Form: [place] Lisinopril 00 TAB, 20 MG Oral Dosing [...] Mem oria 5-11 interfere l 22:00: w/enteral [place] 00 feeds - Take 1 hr before [...] as: l 22:00: Xarelto) Administer with food Carafate No Notes: May [...] Memoria 5-11 (Same as: l 22:00: Xarelto) [place] Administer with food Carafate No Notes: May Mem oria 5-11 interfere l 22:00: w/enteral [place] 00 feeds - Take 1 hr before [...] Mem oria 5-11 interfere l 22:00: w/enteral [place] 00 feeds - Take 1 hr before [...] Memoria 5-11 (Same as: l 22:00: Xarelto) [place] Administer with food Carafate No Notes: May [...] Memoria 5-11 (Same as: l 22:00: Xarelto) [place] Administer with food Carafate No Notes: May Mem oria 5-11 interfere l 22:00: w/enteral [place] 00 feeds - Take 1 hr before [...] Memoria 5-11 (Same as: l 22:00: Xarelto) [place] Administer with food Carafate No Notes: May Mem oria 5-11 interfere l 22:00: w/enteral [place] 00 feeds - Take 1 hr before [...] l 22:00: Xarelto) Otilio Administer with food Protonix No Notes: Memoria 5-11 Tablet l 21:30: should not [place] 00 be chewed or crushed. (Same as: Protonix) Protonix No Notes: Memoria 5-11 Tablet l 21:30: should not [place] 00 be chewed or crushed. (Same as: Protonix) Protonix No Notes: Memoria 5-11 Tablet l 21:30: should not [place] 00 be chewed or crushed. (Same as: Protonix) Protonix No Notes: Memoria 5-11 Tablet l 21:30: should not [place] 00 be chewed or crushed. (Same as: Protonix) Protonix No Notes: Memoria 5-11 Tablet l 21:30: should not Otilio 00 be chewed or crushed. (Same as: Protonix) Protonix No Notes: Memoria 5-11 Tablet l 21:30: should not [place] 00 be chewed or crushed. (Same as: Protonix) Protonix No Notes: Memoria 5-11 Tablet l 21:30: should not [place] 00 be chewed or crushed. (Same as: Protonix) Protonix No Notes: Memoria 5-11 Tablet l 21:30: should not [place] 00 be chewed or crushed. (Same as: Protonix) Amoxicillin Yes 1 tab, PO, Memoria 875 MG / 5-11 Q12H, X 7 l Clavulanate 20:04: day, # 14 H ermann 125 MG Oral 00 tab, 0 Tablet Refill(s), [Augmentin Pharmacy: 875-mg] [facility] SUMAtriptan Yes 50 mg = 1 M emoria 50 mg oral 5-11 tab, PO, l tablet 20:04: ONCE, PRN Jorge n 00 Headache, # 9 tab, 0 Refill(s), Pharmacy: [facility] Amoxicillin Yes 1 tab, PO, Memoria 875 MG / 5-11 Q12H, X 7 l Clavulanate 20:04: day, # 14 H ermann 125 MG Oral 00 tab, 0 Tablet Refill(s), [Augmentin Pharmacy: 875-mg] [facility] SUMAtriptan 2019-0 Yes 50 mg = 1 M emoria 50 mg oral 5-11 tab, PO, l tablet 20:04: ONCE, PRN Jorge n 00 Headache, # 9 tab, 0 Refill(s), Pharmacy: [facility] Amoxicillin 2018-0 Yes 1 tab, PO, Memoria 875 MG / 5-11 Q12H, X 7 l Clavulanate 20:04: day, # 14 H ermann 125 MG Oral 00 tab, 0 Tablet Refill(s), [Augmentin Pharmacy: 875-mg] [facility] SUMAtriptan 2018- Yes 50 mg = 1 M emoria 50 mg oral 5-11 tab, PO, l tablet 20:04: ONCE, PRN Jorge n 00 Headache, # 9 tab, 0 Refill(s), Pharmacy: [facility] Amoxicillin 0 Yes 1 tab, PO, Memoria 875 MG / 5-11 Q12H, X 7 l Clavulanate 20:04: day, # 14 H ermann 125 MG Oral 00 tab, 0 Tablet Refill(s), [Augmentin Pharmacy: 875-mg] [facility] SUMAtriptan 2018- Yes 50 mg = 1 M emoria 50 mg oral 5-11 tab, PO, l tablet 20:04: ONCE, PRN Jorge n 00 Headache, # 9 tab, 0 Refill(s), Pharmacy: [facility] Amoxicillin 2018-0 Yes 1 tab, PO, Memoria 875 MG / 5-11 Q12H, X 7 l Clavulanate 20:04: day, # 14 H ermann 125 MG Oral 00 tab, 0 Tablet Refill(s), [Augmentin Pharmacy: 875-mg] [facility] SUMAtriptan 2018-0 Yes 50 mg = 1 M emoria 50 mg oral 5-11 tab, PO, l tablet 20:04: ONCE, PRN Jorge n 00 Headache, # 9 tab, 0 Refill(s), Pharmacy: [facility] Amoxicillin 2018-0 Yes 1 tab, PO, Memoria 875 MG / 5-11 Q12H, X 7 l Clavulanate 20:04: day, # 14 H ermann 125 MG Oral 00 tab, 0 Tablet Refill(s), [Augmentin Pharmacy: 875-mg] [facility] SUMAtriptan Yes 50 mg = 1 M emoria 50 mg oral 5-11 tab, PO, l tablet 20:04: ONCE, PRN Jorge n 00 Headache, # 9 tab, 0 Refill(s), Pharmacy: [facility] Amoxicillin Yes 1 tab, PO, Memoria 875 MG / 5-11 Q12H, X 7 l Clavulanate 20:04: day, # 14 H ermann 125 MG Oral 00 tab, 0 Tablet Refill(s), [Augmentin Pharmacy: 875-mg] [facility] SUMAtriptan Yes 50 mg = 1 M emoria 50 mg oral 5-11 tab, PO, l tablet 20:04: ONCE, PRN Jorge n 00 Headache, # 9 tab, 0 Refill(s), Pharmacy: [facility] Amoxicillin Yes 1 tab, PO, Memoria 875 MG / 5-11 Q12H, X 7 l Clavulanate 20:04: day, # 14 H ermann 125 MG Oral 00 tab, 0 Tablet Refill(s), [Augmentin Pharmacy: 875-mg] [facility] SUMAtriptan Yes 50 mg = 1 M emoria 50 mg oral 5-11 tab, PO, l tablet 20:04: ONCE, PRN Jorge n 00 Headache, # 9 tab, 0 Refill(s), Pharmacy: [facility] hydrOXYzine No Notes: Levy mike hydrochlori 5-11 (Same as: l de 19:50: Atarax) Otilio 00 Avoid alcohol. hydrOXYzine No Notes: Levy mike hydrochlori 5-11 (Same as: l de 19:50: Atarax) Avoid alcohol. hydrOXYzine No Notes: Levy mike hydrochlori 5-11 (Same as: l de 19:50: Atarax) Avoid alcohol. hydrOXYzine No Notes: Levy mike hydrochlori 5-11 (Same as: l de 19:50: Atarax) Otilio Avoid alcohol. hydrOXYzine No Notes: Levy mike hydrochlori 5-11 (Same as: l de 19:50: Atarax) [place] Avoid alcohol. hydrOXYzine No Notes: Levy mike hydrochlori 5-11 (Same as: l de 19:50: Atarax) Otilio Avoid alcohol. hydrOXYzine No Notes: Levy mike hydrochlori 5-11 (Same as: l de 19:50: Atarax) [place] Avoid alcohol. hydrOXYzine No Notes: Levy mike hydrochlori 5-11 (Same as: l de 19:50: Atarax) [place] Avoid alcohol. ketOROLAC 2018-0 No 4 days Memor ia 15 mg/mL 5-11 l injectable 19:14: MEDICATION H ermann solution 00 WASTE Product Size: 30 mg Product Wasted: ___ mg ketOROLAC 2019-0 No 4 days Memor ia 15 mg/mL 5-11 l injectable 19:14: MEDICATION H ermann solution 00 WASTE Product Size: 30 mg Product Wasted: ___ mg ketOROLAC 2019-0 No 4 days Memor ia 15 mg/mL 5-11 l injectable 19:14: MEDICATION H ermann solution 00 WASTE Product Size: 30 mg Product Wasted: ___ mg ketOROLAC 2019-0 No 4 days Memor ia 15 mg/mL 5-11 l injectable 19:14: MEDICATION H ermann solution 00 WASTE Product Size: 30 mg Product Wasted: ___ mg ketOROLAC 2019-0 No 4 days Memor ia 15 mg/mL 5-11 l injectable 19:14: MEDICATION H ermann solution 00 WASTE Product Size: 30 mg Product Wasted: ___ mg ketOROLAC 2019-0 No 4 days Memor ia 15 mg/mL 5-11 l injectable 19:14: MEDICATION H ermann solution 00 WASTE Product Size: 30 mg Product Wasted: ___ mg ketOROLAC 2019-0 No 4 days Memor ia 15 mg/mL 5-11 l injectable 19:14: MEDICATION H ermann solution 00 WASTE Product Size: 30 mg Product Wasted: ___ mg ketOROLAC No 4 days Memor ia 15 mg/mL - l injectable 19:14: MEDICATION H ermann solution [...] Notes: Memoria 5-11 porcine l 14:00: heparin [place] 00 Amoxicillin No Notes: Levy mike 875 [...] Notes: Memoria 5-11 porcine l 14:00: heparin [place] 00 Amoxicillin No Notes: Levy mike 875 [...] No Notes: Levy mike 875 MG / 07-30 With food. l Clavulanate 14:00: (Same as: H ermann 125 MG Oral 00 Augmentin Tablet 875) [Augmentin 875-mg] heparin No Notes: Memoria 5-11 porcine l 14:00: heparin Otilio 00 Acetaminoph No Notes: Levy mike en 325 MG / 07-30 (Same as: l Hydrocodone 06:20: [place] Kelsey nn Bitartrate 00 325/5) Do 5 MG Oral not exceed Tablet 4gm/day of [[place] acetaminop 5/325] hen. Acetaminoph No Notes: Levy mike en 325 MG / 07-30 (Same as: l Hydrocodone 06:20: [place] Kelsey nn Bitartrate 00 325/5) Do 5 MG Oral not exceed Tablet 4gm/day of [[place] acetaminop 5/325] hen. Acetaminoph No Notes: Levy mike en 325 MG / 07-30 (Same as: l Hydrocodone 06:20: [place] Kelsey nn Bitartrate 00 325/5) Do 5 MG Oral not exceed Tablet 4gm/day of [[place] acetaminop 5/325] hen. Acetaminoph No Notes: Levy mike en 325 MG / 07-30 (Same as: l Hydrocodone 06:20: [place] Kelsey nn Bitartrate 00 325/5) Do 5 MG Oral not exceed Tablet 4gm/day of [[place] acetaminop 5/325] hen. Acetaminoph No Notes: Levy mike en 325 MG / 11 (Same as: l Hydrocodone 06:20: [place] Kelsey nn Bitartrate 00 325/5) Do 5 MG Oral not exceed Tablet 4gm/day of [[place] acetaminop 5/325] hen. Acetaminoph No Notes: Levy mike en 325 MG / 07-30 (Same as: l Hydrocodone 06:20: [place] Kelsey nn Bitartrate 00 325/5) Do 5 MG Oral not exceed Tablet 4gm/day of [[place] acetaminop 5/325] hen. Acetaminoph No Notes: Levy mike en 325 MG / 11 (Same as: l Hydrocodone 06:20: [place] Kelsey nn Bitartrate 00 325/5) Do 5 MG Oral not exceed Tablet 4gm/day of [[place] acetaminop 5/325] hen. Acetaminoph No Notes: Levy mike en 325 MG / 11 (Same as: l Hydrocodone 06:20: [place] Kelsey nn Bitartrate 00 325/5) Do 5 MG Oral not exceed Tablet 4gm/day of [[place] acetaminop 5/325] hen. hydrOXYzine Yes 50 mg, PO, Memoria hydrochlori 5-11 ONCE, 0 l de 06:14: Refill(s) hydrOXYzine Yes 50 mg, PO, Memoria hydrochlori 5-11 ONCE, 0 l de 06:14: Refill(s) hydrOXYzine Yes 50 mg, PO, Memoria hydrochlori 5-11 ONCE, 0 l de 06:14: Refill(s) hydrOXYzine Yes 50 mg, PO, Memoria hydrochlori 5-11 ONCE, 0 l de 06:14: Refill(s) hydrOXYzine Yes 50 mg, PO, Memoria hydrochlori 5-11 ONCE, 0 l de 06:14: Refill(s) hydrOXYzine Yes 50 mg, PO, Memoria hydrochlori 5-11 ONCE, 0 l de 06:14: Refill(s) hydrOXYzine Yes 50 mg, PO, [facility] hydrochlori 5-11 ONCE, 0 l de 06:14: Refill(s) hydrOXYzine Yes 50 mg, PO, [facility] hydrochlori 5-11 ONCE, 0 l de 06:14: Refill(s) atorvastati Yes 40 mg = 1 M emoria n 40 mg 5-11 tab, PO, l oral tablet 06:13: Daily, 0 He rm Refill(s) Hydrochloro Yes 1 tab, PO, [facility] thiazide 25 5-11 Daily, # l MG / 06:13: 90 tab, 1 [place] Lisinopril 00 Refill(s) 20 MG Oral Tablet atorvastati 2019-0 Yes 40 mg = 1 M emoria n 40 mg 5-11 tab, PO, l oral tablet 06:13: Daily, 0 He rmann 00 Refill(s) Hydrochloro 2019-0 Yes 1 tab, PO, [facility] thiazide 25 5-11 Daily, # l MG / 06:13: 90 tab, 1 [place] Lisinopril 00 Refill(s) 20 MG Oral Tablet atorvastati 2019-0 Yes 40 mg = 1 M emoria n 40 mg 5-11 tab, PO, l oral tablet 06:13: Daily, 0 He rmann 00 Refill(s) Hydrochloro 2019-0 Yes 1 tab, PO, [facility] thiazide 25 5-11 Daily, # l MG / 06:13: 90 tab, 1 [place] Lisinopril 00 Refill(s) 20 MG Oral Tablet atorvastati 2019- Yes 40 mg = 1 M emoria [...] l MG / 06:13: 90 tab, 1 [place] Lisinopril 00 Refill(s) 20 MG Oral Tablet [...] l MG / 06:13: 90 tab, 1 [place] Lisinopril 00 Refill(s) 20 MG Oral Tablet atorvastati 2019- Yes 40 mg = 1 M emoria n 40 mg 5-11 tab, PO, l oral tablet 06:13: Daily, 0 rmann 00 Refill(s) Hydrochloro 2019-0 Yes 1 tab, PO, [facility] thiazide 25 5-11 Daily, # l MG / 06:13: 90 tab, 1 [place] Lisinopril 00 Refill(s) 20 MG Oral Tablet isosorbide 2019-0 Yes 30 mg = 1 [...] nn tablet, 00 Refill(s) extended release rivaroxaban 2019-0 Yes 20 mg = 1 M emoria 20 MG Oral 5-11 tab, PO, l Tablet 06:11: QPM, 0 [place] [Xarelto] 00 Refill(s) escitalopra 2019-0 Yes 20 mg = 1 M emoria m 20 mg 5-11 tab, PO, l oral tablet 06:11: Daily, 0 He rmann 00 Refill(s) rivaroxaban 2019-0 Yes 20 mg = 1 M emoria 20 MG Oral 5-11 tab, PO, l Tablet 06:11: QPM, 0 [place] [Xarelto] 00 Refill(s) escitalopra 2019-0 Yes 20 mg = 1 M emoria m 20 mg 5-11 tab, PO, l oral tablet 06:11: Daily, 0 He rmann 00 Refill(s) rivaroxaban 2019-0 Yes 20 mg = 1 M emoria 20 MG Oral 5-11 tab, PO, l Tablet 06:11: QPM, 0 [place] [Xarelto] 00 Refill(s) escitalopra 2019-0 Yes 20 mg = 1 M emoria m 20 mg 5-11 tab, PO, l oral tablet 06:11: Daily, 0 He rmann 00 Refill(s) rivaroxaban 2019-0 Yes 20 mg = 1 M emoria 20 MG Oral 5-11 tab, PO, l Tablet 06:11: QPM, 0 [place] [Xarelto] 00 Refill(s) escitalopra 2019-0 Yes 20 mg = 1 M emoria m 20 mg 5-11 tab, PO, l oral tablet 06:11: Daily, 0 He rmann 00 Refill(s) rivaroxaban 2019-0 Yes 20 mg = 1 M emoria 20 MG Oral 5-11 tab, PO, l Tablet 06:11: QPM, 0 [place] [Xarelto] 00 Refill(s) escitalopra 2019-0 Yes 20 mg = 1 M emoria m 20 mg 5-11 tab, PO, l oral tablet 06:11: Daily, 0 He rm Refill(s) rivaroxaban 2019-0 Yes 20 mg = 1 M emoria 20 MG Oral 5-11 tab, PO, l Tablet 06:11: QPM, 0 [place] [Xarelto] Refill(s) escitalopra 2019-0 Yes 20 mg = 1 M emoria m 20 mg 5-11 tab, PO, l oral tablet 06:11: Daily, 0 He rm Refill(s) rivaroxaban 2019-0 Yes 20 mg [...] tab, PO, l Tablet 06:11: QPM, 0 [place] [Xarelto] Refill(s) escitalopra 2019-0 Yes 20 mg = 1 M emoria m 20 mg 5-11 tab, PO, l oral tablet 06:11: Daily, 0 He rm Refill(s) pantoprazol 2019-0 Yes 40 mg, [...] 5-11 Daily, 0 l 06:10: Refill(s) pantoprazol 2018-0 Yes 40 mg, PO, Memoria e 5-11 Daily, 0 l 06:10: Refill(s) tramadol 0 Yes 50 mg = 1 Levy mike hydrochlori 5-11 tab, PO, l de 50 MG 06:09: TID, 0 [place] Oral Tablet 00 Refill(s) tramadol 0 Yes 50 mg = 1 Levy mike hydrochlori 5-11 tab, PO, l de 50 MG 06:09: TID, 0 Otilio Oral Tablet 00 Refill(s) tramadol 0 Yes 50 mg = 1 Levy mike hydrochlori 5-11 tab, PO, l de 50 MG 06:09: TID, 0 Otilio Oral Tablet 00 Refill(s) tramadol 0 Yes 50 mg = 1 Levy mike hydrochlori 5-11 tab, PO, l de 50 MG 06:09: TID, 0 [place] Oral Tablet 00 Refill(s) tramadol 2018-0 Yes 50 mg = 1 Levy mike hydrochlori 5-11 tab, PO, l de 50 MG 06:09: TID, 0 [place] Oral Tablet 00 Refill(s) tramadol 2018-0 Yes 50 mg = 1 Levy mike hydrochlori 5-11 tab, PO, l de 50 MG 06:09: TID, 0 [place] Oral Tablet 00 Refill(s) tramadol 2018-0 Yes 50 mg = 1 Levy mike hydrochlori 5-11 tab, PO, l de 50 MG 06:09: TID, 0 [place] Oral Tablet 00 Refill(s) tramadol 2018-0 Yes 50 mg = 1 Levy mike hydrochlori 5-11 tab, PO, l de 50 MG 06:09: TID, 0 Otilio Oral Tablet 00 Refill(s) metoprolol 0 Yes 25 mg = 1 Me moria tartrate 25 5-11 tab, PO, l mg oral 06:08: BID, 0 [place] tablet 00 Refill(s) metoprolol 2019-0 Yes 25 [...] PO, l mg oral 06:08: BID, 0 [place] tablet 00 Refill(s) metoprolol 2019-0 Yes 25 mg = 1 Me moria tartrate 25 5-11 tab, PO, l mg oral 06:08: BID, 0 [place] tablet 00 Refill(s) metoprolol 2019-0 Yes 25 mg = 1 Me moria tartrate 25 5-11 tab, PO, l mg oral 06:08: BID, 0 [place] tablet 00 Refill(s) metoprolol 2019-0 Yes 25 mg = 1 Me moria tartrate 25 5-11 tab, PO, l mg oral 06:08: BID, 0 Otilio tablet 00 Refill(s) metoprolol 2019-0 Yes 25 mg = 1 Me moria tartrate 25 5-11 tab, PO, l mg oral 06:08: BID, 0 [place] tablet 00 Refill(s) NS 1,000 mL 0 [...] 23:32:00 CDT, 3.14, m2 NS 1,000 mL 2019-0 No 1,000 mL, M emoria 5-11 Rate: 100 l 04:33: ml/hr, [place] 00 Infuse over: 10 hr, Route: IV, Dosing Weight 187.682 kg, Total Volume: 1,000, Start date: 07/29/18 23:33:00 CDT, Duration: 30 day, Stop date: 08/28/18 23:32:00 CDT, 3.14, m2 NS 1,000 mL 2019-0 No 1,000 mL, M emoria 5-11 Rate: 100 l 04:33: ml/hr, [place] 00 Infuse over: 10 hr, Route: IV, Dosing Weight 187.682 kg, Total Volume: 1,000, Start date: 07/29/18 23:33:00 CDT, Duration: 30 day, Stop date: 08/28/18 23:32:00 CDT, 3.14, m2 NS 1,000 mL 2019-0 No 1,000 mL, M emoria 5-11 Rate: 100 l 04:33: ml/hr, [place] 00 Infuse over: 10 hr, Route: IV, Dosing Weight 187.682 kg, Total Volume: 1,000, Start date: 07/29/18 23:33:00 CDT, Duration: 30 day, Stop date: 08/28/18 23:32:00 CDT, 3.14, m2 NS 1,000 mL 2019-0 No 1,000 mL, M emoria 5-11 Rate: 100 l 04:33: ml/hr, Otilio 00 Infuse over: 10 hr, Route: IV, Dosing Weight 187.682 kg, Total Volume: 1,000, Start date: 07/29/18 23:33:00 CDT, Duration: 30 day, Stop date: 08/28/18 23:32:00 CDT, 3.14, m2 NS 1,000 mL 2019-0 No 1,000 mL, M emoria 5-11 Rate: 100 l 04:33: ml/hr, Otilio 00 Infuse over: 10 hr, Route: IV, Dosing Weight 187.682 kg, Total Volume: 1,000, Start date: 07/29/18 23:33:00 CDT, Duration: 30 day, Stop date: 08/28/18 23:32:00 CDT, 3.14, m2 NS 1,000 mL No 1,000 mL, M emoria 07-30 Rate: 100 l 04:33: ml/hr, Otilio 00 Infuse over: 10 hr, Route: IV, Dosing Weight 187.682 kg, Total Volume: 1,000, Start date: 07/29/18 23:33:00 CDT, Duration: 30 day, Stop date: 08/28/18 23:32:00 CDT, 3.14, m2 Nitroglycer No Notes: Levy mike in - (Same l 04:31: as:Nitroqu Otilio 00 ick, Nitrostat) "Do Not Crush" Sublingual tablet Morphine No Notes: Memoria 5-11 (Same l 04:31: as:MORPhin [place] 00 e Sulfate) Ondansetron No Notes: Levy mike - (Same as: l 04:31: Zofran) Otilio 00 MEDICATION WASTE Product Size: 4 mg Product Wasted: ___ mg Glucagon No 1 mg, Memoria 07-30 Route: IM, l 04:31: Drug form: [place] 00 PDR/INJ, PRN, Dosing Weight 187.682, kg, PRN Blood Glucose Results, Start date: 07/29/18 23:31:00 CDT, Duration: 30 day, Stop date: 08/28/18 23:30:00 CDT Dextrose No 25 gm, 50 Levy mike 50% Syringe 5-11 mL, Route: l 04:31: IVP, Drug Otilio 00 Form: INJ, Dosing Weight 187.682, kg, PRN, PRN Blood Glucose Results, Start date: 07/29/18 23:31:00 CDT, Duration: 30 day, Stop date: 08/28/18 23:30:00 CDT Nitroglycer No Notes: Levy mike in - (Same l 04:31: as:Nitroqu [place] 00 ick, Nitrostat) "Do Not Crush" Sublingual tablet Morphine No Notes: Memoria 5-11 (Same l 04:31: as:MORPhin Otilio 00 e Sulfate) Ondansetron 2018-0 No Notes: Levy mike 5-11 (Same as: l 04:31: Justin) Otilio MEDICATION WASTE Product Size: 4 mg Product Wasted: ___ mg Glucagon 2018-0 No 1 mg, Memoria 5-11 Route: IM, l 04:31: Drug form: Otilio 00 PDR/INJ, PRN, Dosing Weight 187.682, kg, PRN Blood Glucose Results, Start date: 07/29/18 23:31:00 CDT, Duration: 30 day, Stop date: 08/28/18 23:30:00 CDT Dextrose 2019-0 No 25 gm, 50 Levy mike 50% Syringe 5-11 mL, Route: l 04:31: IVP, Drug [place] 00 Form: INJ, Dosing Weight 187.682, kg, PRN, PRN Blood Glucose Results, Start date: 07/29/18 23:31:00 CDT, Duration: 30 day, Stop date: 08/28/18 23:30:00 CDT Nitroglycer 2018-0 No Notes: Levy mike in -11 (Same l 04:31: as:Nitroqu Otilio 00 ick, Nitrostat) "Do Not Crush" Sublingual tablet Morphine 2018-0 No Notes: Memoria 5-11 (Same l 04:31: as:MORPhin [place] 00 e Sulfate) Ondansetron 2018-0 No Notes: Levy mike 5-11 (Same as: l 04:31: Justin) Otilio MEDICATION WASTE Product Size: 4 mg [...] 5-11 mL, Route: l 04:31: IVP, Drug Otilio 00 Form: INJ, Dosing Weight 187.682, kg, PRN, PRN Blood Glucose Results, Start date: 07/29/18 23:31:00 CDT, Duration: 30 day, Stop date: 08/28/18 23:30:00 CDT Nitroglycer 2018-0 No Notes: Levy mike in 07-30 (Same l 04:31: as:Nitroqu [place] 00 ick, Nitrostat) "Do Not Crush" Sublingual tablet Morphine No Notes: Memoria - (Same l 04:31: as:MORPhin Otilio 00 e Sulfate) Ondansetron No Notes: Levy mike - (Same as: l 04:31: Zofran) Otilio 00 MEDICATION WASTE Product Size: 4 mg Product Wasted: ___ mg Glucagon No 1 mg, Memoria 07-30 Route: IM, l 04:31: Drug form: Otilio 00 PDR/INJ, PRN, Dosing Weight 187.682, kg, PRN Blood Glucose Results, Start date: 07/29/18 23:31:00 CDT, Duration: 30 day, Stop date: 08/28/18 23:30:00 CDT Dextrose No 25 gm, 50 Levy mike 50% Syringe 5-11 mL, Route: l 04:31: IVP, Drug Otilio 00 Form: INJ, Dosing Weight 187.682, kg, PRN, PRN Blood Glucose Results, Start date: 07/29/18 23:31:00 CDT, Duration: 30 day, Stop date: 08/28/18 23:30:00 CDT Nitroglycer 2018-0 No Notes: Levy mike in 07-30 (Same l 04:31: as:Nitroqu Otilio 00 ick, Nitrostat) "Do Not Crush" Sublingual tablet Morphine 2018- No Notes: Memoria - (Same l 04:31: as:MORPhin [place] 00 e Sulfate) Ondansetron 0 No Notes: Levy mike -11 (Same as: l 04:31: Zofran) Otilio 00 MEDICATION WASTE Product Size: 4 mg Product Wasted: ___ mg Glucagon 0 No 1 mg, Memoria 07-30 Route: IM, l 04:31: Drug form: [place] 00 PDR/INJ, PRN, Dosing Weight 187.682, kg, PRN Blood Glucose Results, Start date: 07/29/18 23:31:00 CDT, Duration: 30 day, Stop date: 08/28/18 23:30:00 CDT Dextrose 2019-0 No 25 gm, 50 Levy mike 50% Syringe 5-11 mL, Route: l 04:31: IVP, Drug [place] 00 Form: INJ, Dosing Weight 187.682, kg, PRN, PRN Blood Glucose Results, Start date: 07/29/18 23:31:00 CDT, Duration: 30 day, Stop date: 08/28/18 23:30:00 CDT Nitroglycer 2018-0 No Notes: Levy mike in 5-11 (Same l 04:31: as:Nitroqu Otilio 00 ick, Nitrostat) "Do Not Crush" Sublingual tablet Morphine 2018-0 No Notes: Memoria 5-11 (Same l 04:31: as:MORPhin [place] 00 e Sulfate) Ondansetron 2018-0 No Notes: Levy mike 5-11 (Same as: l 04:31: Zofran) Otilio 00 MEDICATION WASTE Product Size: 4 mg Product Wasted: ___ mg Glucagon 2018-0 No 1 mg, Memoria 5-11 Route: IM, l 04:31: Drug form: [place] 00 PDR/INJ, PRN, Dosing Weight 187.682, kg, PRN Blood Glucose Results, Start date: 07/29/18 23:31:00 CDT, Duration: 30 day, Stop date: 08/28/18 23:30:00 CDT Dextrose 2019-0 No 25 gm, 50 Levy mike 50% Syringe 5-11 mL, Route: l 04:31: IVP, Drug Otilio 00 Form: INJ, Dosing Weight 187.682, kg, PRN, PRN Blood Glucose Results, Start date: 07/29/18 23:31:00 CDT, Duration: 30 day, Stop date: 08/28/18 23:30:00 CDT Nitroglycer 2018-0 No Notes: Levy mike in 5-11 (Same l 04:31: as:Nitroqu [place] 00 ick, Nitrostat) "Do Not Crush" Sublingual tablet Morphine 2018-0 No Notes: Memoria 5-11 (Same l 04:31: as:MORPhin Otilio 00 e Sulfate) Ondansetron 0 No Notes: Levy mike 5-11 (Same as: l 04:31: Zofran) [place] 00 MEDICATION WASTE Product Size: 4 mg Product Wasted: ___ mg Glucagon 2018-0 No 1 mg, Memoria 11 Route: IM, l 04:31: Drug form: Otilio [...] mike in -11 (Same l 04:31: as:Nitroqu Otilio 00 ick, Nitrostat) "Do Not Crush" Sublingual tablet Morphine 2018- No Notes: Memoria 5-11 (Same l 04:31: as:MORPhin Otilio 00 e Sulfate) Ondansetron 2018-0 No Notes: Levy mike 5-11 (Same as: l 04:31: Zofrsen) [place] 00 MEDICATION WASTE Product Size: 4 mg Product Wasted: ___ mg Glucagon 2018-0 No 1 mg, Memoria 5-11 Route: IM, l 04:31: Drug form: Otilio 00 PDR/INJ, PRN, Dosing Weight 187.682, kg, PRN Blood Glucose Results, Start date: 07/29/18 23:31:00 CDT, Duration: 30 day, Stop date: 08/28/18 23:30:00 CDT Dextrose 2018-0 No 25 gm, 50 Levy mike 50% Syringe 5-11 mL, Route: l 04:31: IVP, Drug [place] 00 Form: INJ, Dosing Weight 187.682, kg, PRN, PRN Blood Glucose Results, Start date: 07/29/18 23:31:00 CDT, Duration: 30 day, Stop date: 08/28/18 23:30:00 CDT Dilaudid 2019-0 No Notes: Memoria 5-11 Same as l 03:16: Dilaudid Otilio 00 Dilaudid 2019-0 No Notes: Memoria 5-11 Same as l 03:16: Dilaudid [place] 00 Dilaudid 2019-0 No Notes: Memoria 5-11 Same as l 03:16: Dilaudid [place] 00 Dilaudid 2019-0 No Notes: Memoria 5-11 Same as l 03:16: Dilaudid [place] Dilaudid 2019-0 No Notes: Memoria 5-11 Same as l 03:16: Dilaudid [place] 00 Dilaudid 2019-0 No Notes: Memoria 5-11 Same as l 03:16: Dilaudid Otilio 00 Dilaudid 2019-0 No Notes: Memoria 5-11 Same as l 03:16: Dilaudid Otilio 00 Dilaudid 2019-0 No Notes: Memoria 5-11 Same as l 03:16: Dilaudid [place] Hydromorpho 2018-0 No 0.5 mg, Mem oria ne 5-11 Route: l 03:08: IVP, ONCE, Dosing Weight 187.682, kg, Priority: STAT, Start date: 07/29/18 22:08:00 CDT, Stop date: 07/29/18 22:08:00 CDT Hydromorpho 2019-0 No 0.5 mg, Mem oria ne 5-11 Route: l 03:08: IVP, ONCE, Otilio 00 Dosing Weight 187.682, kg, Priority: STAT, Start date: 07/29/18 22:08:00 CDT, Stop date: 07/29/18 22:08:00 CDT Hydromorpho 2018-0 No 0.5 mg, Mem oria ne 5-11 Route: l 03:08: IVP, ONCE, Otilio 00 Dosing Weight 187.682, kg, Priority: STAT, Start [...] CDT, Stop date: 07/29/18 22:08:00 CDT Nitroglycer 2019-0 No Notes: Levy mike in 0.4 MG 5-11 (Same l Sublingual 02:44: as:Nitroqu H ermann Tablet 00 ick, Nitrostat) "Do Not Crush" Sublingual tablet Nitroglycer 2019-0 No Notes: Levy mike in 0.4 MG 5-11 (Same l Sublingual 02:44: as:Nitroqu H ermann Tablet 00 ick, Nitrostat) "Do Not Crush" Sublingual tablet Nitroglycer No Notes: Levy mike in 0.4 MG 5-11 (Same l Sublingual 02:44: as:Nitroqu H ermann Tablet 00 ick, Nitrostat) "Do Not Crush" Sublingual tablet Nitroglycer No Notes: Levy mike in 0.4 MG 5-11 (Same l Sublingual 02:44: as:Nitroqu H ermann Tablet 00 ick, Nitrostat) "Do Not Crush" Sublingual tablet Nitroglycer No Notes: Levy mike in 0.4 MG 5-11 (Same l Sublingual 02:44: as:Nitroqu H ermann Tablet 00 ick, Nitrostat) "Do Not Crush" Sublingual tablet Nitroglycer No Notes: Levy mike in 0.4 MG 5-11 (Same l Sublingual 02:44: as:Nitroqu H ermann Tablet 00 ick, Nitrostat) "Do Not Crush" Sublingual tablet Nitroglycer No Notes: Levy mike in 0.4 MG 5-11 (Same l Sublingual 02:44: as:Nitroqu H ermann Tablet 00 ick, Nitrostat) "Do Not Crush" Sublingual tablet Nitroglycer No Notes: Levy mike in 0.4 MG 5-11 (Same l Sublingual 02:44: as:Nitroqu H ermann Tablet 00 ick, Nitrostat) "Do Not Crush" Sublingual tablet Amoxicillin 2018-0 No 1 tab, Levy mike 875 MG / 5-11 Route: PO, l Clavulanate 02:38: Drug Form: [place] 125 MG Oral 00 TAB, Tablet Dosing Weight 187.682, kg, ONCE, STAT, Start date: 07/29/18 21:38:00 CDT, Stop date: 07/29/18 21:38:00 CDT Amoxicillin 2018-0 No 1 tab, Levy mike 875 MG / 5-11 Route: PO, l Clavulanate 02:38: Drug Form: [place] 125 MG Oral 00 TAB, Tablet Dosing [...] Route: PO, l Clavulanate 02:38: Drug Form: [place] 125 MG Oral 00 TAB, Tablet Dosing [...] 07/29/18 21:38:00 CDT Amoxicillin No Notes: Levy mike 875 MG / 5-11 With food. l Clavulanate 02:06: (Same as: H ermann 125 MG Oral 00 Augmentin Tablet 875) [Augmentin 875-mg] Amoxicillin No Notes: Levy mike 875 MG / 5-11 With food. l Clavulanate 02:06: (Same as: H ermann 125 MG Oral 00 Augmentin Tablet 875) [Augmentin 875-mg] Amoxicillin No Notes: Levy mike 875 MG / 5-11 With food. l Clavulanate 02:06: (Same as: H ermann 125 MG Oral 00 Augmentin Tablet 875) [Augmentin 875-mg] Amoxicillin No Notes: Levy mike 875 MG / 5-11 With food. l Clavulanate 02:06: (Same as: H ermann 125 MG Oral 00 Augmentin Tablet 875) [Augmentin 875-mg] Amoxicillin No Notes: Levy mike 875 MG / 5-11 With food. l Clavulanate 02:06: (Same as: H ermann 125 MG Oral 00 Augmentin Tablet 875) [Augmentin 875-mg] Amoxicillin No Notes: Levy mike 875 MG / 5-11 With food. l Clavulanate 02:06: (Same as: H ermann 125 MG Oral 00 Augmentin Tablet 875) [Augmentin 875-mg] Amoxicillin No Notes: Levy mike 875 MG / 5-11 With food. l Clavulanate 02:06: (Same as: H ermann 125 MG Oral 00 Augmentin Tablet 875) [Augmentin 875-mg] Amoxicillin No Notes: Levy mike 875 MG / 5-11 With food. l Clavulanate 02:06: (Same as: H ermann 125 MG Oral 00 Augmentin Tablet 875) [Augmentin 875-mg] Aspirin 81 No Notes: Memor ia MG Chewable 5-11 Take with l Tablet 01:52: food. Otilio 00 Ondansetron 2018-0 No Notes: Levy mike 5-11 (Same as: l 01:52: Zofran) Otilio 00 MEDICATION WASTE Product Size: 4 mg Product Wasted: ___ mg Morphine 2019-0 No Notes: Memoria 5-11 (Same l 01:52: as:MORPhin [place] 00 e Sulfate) Aspirin 81 2018-0 No Notes: Memor ia MG Chewable 5-11 Take with l Tablet 01:52: food. Ondansetron 2018- No Notes: Levy mike 5-11 (Same as: l 01:52: Zofran) Otilio 00 MEDICATION WASTE Product Size: 4 mg Product Wasted: ___ mg Morphine 2019-0 No Notes: Memoria 5-11 (Same l 01:52: as:MORPhin [place] 00 e Sulfate) Aspirin 81 2018-0 No Notes: Memor ia MG Chewable 5-11 Take with l Tablet 01:52: food. Ondansetron 2018- No Notes: Levy mike 5-11 (Same as: l 01:52: Zofran) Otilio 00 MEDICATION WASTE Product Size: 4 mg Product Wasted: ___ mg Morphine 2019-0 No Notes: Memoria 5-11 (Same l 01:52: as:MORPhin [place] 00 e Sulfate) Aspirin 81 2018-0 No Notes: Memor ia MG Chewable 5-11 Take with l Tablet 01:52: food. Otilio 00 Ondansetron 2018- No Notes: Levy mike 5-11 (Same as: l 01:52: Zofran) Otilio 00 MEDICATION WASTE Product Size: 4 mg Product Wasted: ___ mg Morphine 2019-0 No Notes: Memoria 5-11 (Same l 01:52: as:MORPhin Otilio 00 e Sulfate) Aspirin 81 2018-0 No Notes: Memor ia MG Chewable 5-11 Take with l Tablet 01:52: food. Ondansetron 2018-0 No Notes: Levy mike 5-11 (Same as: l 01:52: Zofran) Otilio 00 MEDICATION WASTE Product Size: 4 mg Product Wasted: ___ mg Morphine 2019-0 No Notes: Memoria 5-11 (Same l 01:52: as:MORPhin Otilio 00 e Sulfate) Aspirin 81 2018-0 No Notes: Memor ia MG Chewable 5-11 Take with l Tablet 01:52: food. [place] 00 Ondansetron 2018- No Notes: Levy mike 5-11 (Same as: l 01:52: Zofran) Otilio 00 MEDICATION WASTE Product Size: 4 mg Product Wasted: ___ mg Morphine 2019-0 No Notes: Memoria 5-11 (Same l 01:52: as:MORPhin Otilio 00 e Sulfate) Aspirin 81 No Notes: Memor ia MG Chewable 5-11 Take with l Tablet 01:52: food. Otilio 00 Ondansetron 2018- No Notes: Levy mike 5-11 (Same as: l 01:52: Zofran) [place] 00 MEDICATION WASTE Product Size: 4 mg Product Wasted: ___ mg Morphine 2019-0 No Notes: Memoria 5-11 (Same l 01:52: as:MORPhin [place] 00 e Sulfate) Aspirin 81 No Notes: Memor ia MG Chewable 5-11 Take with l Tablet 01:52: food. Otilio 00 Ondansetron 2018- No Notes: Levy mike 5-11 (Same as: l 01:52: Zofran) [place] 00 MEDICATION WASTE Product Size: 4 mg Product Wasted: ___ mg Morphine 2019-0 No Notes: Memoria 5-11 (Same l 01:52: as:MORPhin Otilio 00 e Sulfate) Saline No Notes: Memoria Flush 0.9% 5-11 (Same as: l 00:35: BD Otilio 00 Posiflush) Saline No Notes: Memoria Flush 0.9% 5-11 (Same as: l 00:35: BD [place] 00 Posiflush) Saline 0 No Notes: Memoria Flush 0.9% 5-11 (Same as: l 00:35: BD [place] 00 Posiflush) Saline 0 No Notes: Memoria Flush 0.9% 5-11 (Same as: l 00:35: BD [place] 00 Posiflush) Saline No Notes: Memoria Flush 0.9% 5-11 (Same as: l 00:35: BD [place] 00 Posiflush) Saline No Notes: Memoria Flush 0.9% 5-11 (Same as: l 00:35: BD Otilio 00 Posiflush) Saline No Notes: Memoria Flush 0.9% 5-11 (Same as: l 00:35: BD Otilio 00 Posiflush) Saline No Notes: Memoria Flush 0.9% 5-11 (Same as: l 00:35: BD [place] 00 Posiflush) omeprazole 2017-0 Yes 40mg QD Take [address] (PRILOSEC) 7-17 by mouth [facility] 40 MG 14:02: daily. Medical capsule [address] [place] [address] lovastatin [address] Yes 40mg QD Take [address] (MEVACOR) 7-17 by mouth [facility] 40 MG 14:02: nightly. Medical tablet [address] [place] omeprazole 2017-0 Yes 40mg QD Take [address] (PRILOSEC) 7-17 by mouth [facility] 40 MG 14:02: daily. Medical capsule [address] [place] lovastatin [id number] Yes 40mg QD Take [address] (MEVACOR) 7-17 by mouth [facility] 40 MG 14:02: nightly. Medical tablet [address] [place] omeprazole 0 Yes 40mg QD Take [address] (PRILOSEC) 7-17 by mouth [facility] 40 MG 14:02: daily. Medical capsule [address] [place] [address] lovastatin 2017-0 Yes 40mg QD Take [address] (MEVACOR) 7-17 by mouth [facility] 40 MG 14:02: nightly. Medical tablet [address] [place] omeprazole 2017-0 Yes 40mg QD Take [address] (PRILOSEC) 7-17 by mouth [facility] 40 MG 14:02: daily. Medical capsule [address] [place] [address] lovastatin 2017-0 Yes 40mg QD Take [address] (MEVACOR) 7-17 by mouth [facility] 40 MG 14:02: nightly. Medical tablet [address] [place] [address] omeprazole 2017-0 Yes 40mg QD Take [address] (PRILOSEC) 7-17 by mouth [facility] 40 MG 14:02: daily. [facility] lovastatin [id number] Yes 40mg QD Take 40 mg [...] ity o f mg tablet 18:22: daily. [place] [facility] Golytely Sulyyteberta No 4000mL Lesvia souzar [phone] da gram-22.74 gram-22.74 gram-22.74 [...] Immunizations Ordered Filled Immunization Date Status Comments [facility] e Immunization Name Name Influenza Virus 2020-07-27 Completed [facility] .5 mL 00:00:00 [facility] Influenza Virus 2020-07-27 Completed [facility] .5 mL 00:00:00 [facility] 6[facility] Influenza Virus 2020-07-27 Completed [facility] .5 mL 00:00:00 [facility] 6[facility] Influenza Virus 2020-07-27 Completed [facility] .5 mL 00:00:00 [facility] 6[facility] Influenza Virus 2020-07-27 Completed [facility] .5 mL 00:00:00 [facility] 6[facility] Influenza Virus 2020-07-27 Completed [facility] .5 mL 00:00:00 [facility] 6[facility] Influenza Virus 2020-07-27 Completed [facility] .5 mL 00:00:00 [facility] 6[facility] Influenza Virus 2020-07-27 Completed [facility] .5 mL 00:00:00 [facility] 6[facility] Influenza Virus 2020-07-27 Completed [facility] .5 mL 00:00:00 [place] [facility] Influenza Virus 2020-07-27 Completed [facility] Vaccine [facility] .5 mL 00:00:00 [place] [facility] Influenza Virus 2020-07-27 Completed [facility] Vaccine [facility] .5 mL 00:00:00 [place] [facility] Influenza Virus 2020-07-27 Completed [facility] Vaccine [facility] .5 mL 00:00:00 [place] [facility] Vital Signs Vital Name Observation Time Observation Value Comments Source Systolic blood 2022-09-04 12:14:00 122 mm[Hg] [facility] of pressure [facility] Diastolic blood 2022-09-04 12:14:00 70 mm[Hg] Unive rsity of pressure [facility] Heart rate 2022-09-04 12:14:00 81 /min [facility] Body temperature 2022-09-04 12:14:00 [facility].56 [facility] Respiratory rate 2022-09-04 12:14:00 20 /min [facility] Oxygen saturation in 2022-09-04 12:14:00 94 /min [facility] Arterial blood by [facility] Body height 2022-09-02 20:37:[address] [facility] Body weight 2022-09-02 20:37:[address] [facility] BMI 2022-09-02 20:37:00 59.67 kg/m2 [facility] Systolic blood 2022-07-28 20:57:00 108 mm[Hg] Univer sity of pressure [facility] Diastolic blood 2022-07-28 20:57:00 70 mm[Hg] Unive rsity of pressure [facility] Heart rate 2022-07-28 20:57:00 80 /min [facility] ty [facility] Body temperature 2022-07-28 20:57:00 35.5 [facility] Respiratory rate 2022-07-28 20:57:00 17 /min [facility] Oxygen saturation in 2022-07-28 20:57:00 96 /min [facility] Arterial blood by [facility] P[facility] Body weight 2022-07-28 08:34:00 207.475 kg [facility] BMI 2022-07-28 08:34:00 62.03 kg/m2 [facility] Body height 2022-07-28 03:29:00 182.9 cm [facility] Systolic blood 2022-03-27 03:43:02 133 mm[Hg] [facility] Diastolic blood 2022-03-27 03:43:02 77 mm[Hg] [facility] rs[facility] pressure [facility] Heart rate 2022-03-27 03:43:02 82 /min [facility] Respiratory rate 2022-03-27 03:43:02 18 /min [facility] Oxygen saturation in 2022-03-27 03:43:02 96 /min [facility] Arterial blood by [facility] Pulse oxim[facility] Body height 2022-03-26 23:01:00 182.9 cm [facility] Body weight 2022-03-26 23:01:00 206.432 kg [facility] BMI 2022-03-26 23:01:00 61.72 kg/m2 [facility] Body temperature 2022-03-26 23:00:00 37.11 [facility] Systolic blood 2021-10-05 16:27:00 104 mm[Hg] [facility] Diastolic blood 2021-10-05 16:27:00 74 mm[Hg] [facility] Heart rate 2021-10-05 16:27:00 73 /min [facility] Body temperature 2021-10-05 16:27:00 36.22 Meliza [facility] Respiratory rate 2021-10-05 16:27:00 18 /min [facility] Oxygen saturation in 2021-10-05 16:27:00 96 /min [facility] Arter[facility] blood by [facility] Pulse oximetry Branch Body weight 2021-10-05 09:28:00 201.488 kg [facility] BMI 2021-10-05 09:28:00 60.24 kg/m2 [facility] Body height 2021-10-03 02:38:00 182.9 cm [facility] Systolic blood 2021-04-13 10:00:00 115 mm[Hg] [facility] Diastolic blood 2021-04-13 10:00:00 75 mm[Hg] [facility] Heart rate 2021-04-13 10:00:00 90 /min [facility] Respiratory rate 2021-04-13 10:00:00 19 /min [facility] Oxygen saturation in 2021-04-13 10:00:00 98 /min [facility] by [facility] carol Pulse oximetry [facility] Body temperature 2021-04-13 07:00:00 37.83 Meliza [facility] Body weight 2021-04-13 04:38:00 218.634 kg [facility] BMI 2021-04-13 04:38:00 65.37 kg/m2 [facility] Systolic blood 2021-03-04 01:01:00 159 mm[Hg] [facility] Diastolic blood 2021-03-04 01:01:00 105 mm[Hg] [facility] Heart rate 2021-03-04 01:01:00 86 /min [facility] Respiratory rate 2021-03-04 01:01:00 20 /min [facility] Oxygen saturation in 2021-03-04 01:01:00 96 /min [facility] carol Pulse oxim[facility] Body temperature 2021-03-03 23:22:10 36.94 Meliza [facility] Body weight 2021-03-03 22:44:00 221.628 kg [facility] BMI 2021-03-03 22:44:00 66.27 kg/m2 [facility] Systolic blood 2020-12-31 06:00:00 125 mm[Hg] [facility] Diastolic blood 2020-12-31 06:00:00 52 mm[Hg] [facility] Heart rate 2020-12-31 06:00:00 84 /min [facility] Respiratory rate 2020-12-31 06:00:00 24 /min [facility] Oxygen saturation in 2020-12-31 06:00:00 97 /min [facility] blood by [facility] carol Pulse oximetry Branch Body temperature 2020-12-31 03:22:00 36.89 Meliza [facility] Body weight 2020-12-31 03:22:00 226.799 kg [facility] BMI 2020-12-31 03:22:00 67.81 kg/m2 [facility] Systolic blood 2020-10-15 04:50:00 133 mm[Hg] [facility] Diastolic blood 2020-10-15 04:50:00 87 mm[Hg] [facility] Heart rate 2020-10-15 04:50:00 78 /min [facility] Respiratory rate 2020-10-15 04:50:00 20 /min [facility] Oxygen saturation in 2020-10-15 04:50:00 96 /min [facility] by [facility] carol Pulse oximetry Branch Body temperature 2020-10-15 00:11:00 36.83 Meliza [facility] Body weight 2020-10-15 00:11:00 226.799 kg [facility] BMI 2020-10-15 00:11:00 67.81 kg/m2 [facility] Systolic blood 2020-07-27 17:39:00 138 mm[Hg] [facility] Diastolic blood 2020-07-27 17:39:00 79 mm[Hg] [facility] Heart rate 2020-07-27 17:39:00 81 /min [facility] Body temperature 2020-07-27 17:39:00 36 Meliza [facility] Respiratory rate 2020-07-27 17:39:00 16 /min [facility] Oxygen saturation in 2020-07-27 17:39:00 93 /min [facility] by [facility] carol Pulse oximetry Branch Body weight 2020-07-27 08:53:00 222.535 kg [facility] BMI 2020-07-27 08:53:00 66.54 kg/m2 [facility] Body height 2020-07-26 06:00:00 182.9 cm [facility] Systolic blood 2020-04-09 22:25:00 146 mm[Hg] [facility] Diastolic blood 2020-04-09 22:25:00 93 mm[Hg] [facility] Heart rate 2020-04-09 22:25:00 84 /min [facility] Respiratory rate 2020-04-09 22:25:00 17 /min [facility] Oxygen saturation in 2020-04-09 22:25:00 97 /min [facility] Body temperature 2020-04-09 14:00:43 36.5 Meliza [facility] Body weight 2020-04-07 11:43:00 226.345 kg [facility] BMI 2020-04-07 11:43:00 67.68 kg/m2 [facility] Systolic blood 2020-04-09 22:25:00 146 mm[Hg] [facility] Diastolic blood 2020-04-09 22:25:00 93 mm[Hg] [facility] Heart rate 2020-04-09 22:25:00 84 /min [facility] Respiratory rate 2020-04-09 22:25:00 17 /min [facility] Oxygen saturation in 2020-04-09 22:25:00 97 /min [facility] [place] [facility] Body temperature 2020-04-09 14:00:43 36.5 Meliza [facility] Body weight 2020-04-07 11:43:00 226.345 kg [facility] BMI 2020-04-07 11:43:00 67.68 kg/m2 [facility] Systolic blood 2019-12-26 08:00:00 170 mm[Hg] [facility] Diastolic blood 2019-12-26 08:00:00 102 mm[Hg] [facility] Heart rate 2019-12-26 08:00:00 72 /min [facility] Oxygen saturation in 2019-12-26 08:00:00 98 /min [facility] [place] [facility] Respiratory rate 2019-12-26 06:00:00 15 /min [facility] Body temperature 2019-12-26 05:58:00 36.56 Meliza [facility] Body weight 2019-12-26 05:58:00 233.602 kg [facility] BMI 2019-12-26 05:58:00 69.85 kg/m2 [facility] Systolic blood 2019-12-26 08:00:00 170 mm[Hg] [facility] Diastolic blood 2019-12-26 08:00:00 102 mm[Hg] [facility] Heart rate 2019-12-26 08:00:00 72 /min [facility] Oxygen saturation in 2019-12-26 08:00:00 98 /min [facility] [place] [facility] Respiratory rate 2019-12-26 06:00:00 15 /min [facility] Body temperature 2019-12-26 05:58:00 36.56 Meliza [facility] Body weight 2019-12-26 05:58:00 233.602 kg [facility] BMI 2019-12-26 05:58:00 69.85 kg/m2 [facility] HEIGHT 2019-12-24 00:00:00 183 cm WEIGHT 2019-12-24 00:00:00 233.602 kg HEIGHT 2019-12-24 00:00:00 183 cm WEIGHT 2019-12-24 00:00:00 233.602 kg Systolic blood 2019-12-20 17:59:00 95 mm[Hg] [facility] Diastolic blood 2019-12-20 17:59:00 46 mm[Hg] [facility] Heart rate 2019-12-20 17:59:00 72 /min [facility] Body temperature 2019-12-20 17:59:00 36.39 Meliza [facility] Respiratory rate 2019-12-20 17:59:00 18 /min [facility] Oxygen saturation in 2019-12-20 17:59:00 97 /min [facility] by [facility] Pulse oximetry Branch Body weight 2019-12-19 09:35:00 227.479 kg bedscale [facility] BMI 2019-12-19 09:35:00 68.02 kg/m2 [facility] Systolic blood 2019-10-23 20:18:00 120 mm[Hg] [facility] Diastolic blood 2019-10-23 20:18:00 60 mm[Hg] [facility] Heart rate 2019-10-23 20:18:00 72 /min [facility] [place] Body temperature 2019-10-23 20:18:00 36.39 Meliza [facility] Respiratory rate 2019-10-23 20:18:00 18 /min [facility] Oxygen saturation in 2019-10-23 20:18:00 94 /min [facility] blood by [facility] Pulse oximetry Branch Body height 2019-10-20 13:21:00 182.9 cm [facility] Body weight 2019-10-20 13:21:00 219.995 kg [facility] BMI 2019-10-20 13:21:00 65.78 kg/m2 [facility] Systolic blood 2019-08-31 03:57:00 151 mm[Hg] [facility] Diastolic blood 2019-08-31 03:57:00 105 mm[Hg] [facility] Heart rate 2019-08-31 03:57:00 82 /min [facility] Respiratory rate 2019-08-31 03:57:00 18 /min [facility] Oxygen saturation in 2019-08-31 03:57:00 96 /min [facility] by [facility] Pulse oximetry Branch Body temperature 2019-08-31 01:04:00 36.83 Meliza [facility] Body weight 2019-08-31 01:04:[address] [facility] BMI 2019-08-31 01:04:00 65.91 kg/m2 [facility] Systolic blood 2019-08-16 16:13:00 127 mm[Hg] [facility] Diastolic blood 2019-08-16 16:13:00 65 mm[Hg] [facility] Heart rate 2019-08-16 16:13:00 86 /min [facility] Body temperature 2019-08-16 16:13:00 36.22 Meliza [facility] 2019-08-16 16:13:00 18 /min [facility] Oxygen saturation in 2019-08-16 09:09:00 95 /min [facility] Arterial blood by [facility] Pulse oximetry [place] Body weight 2019-08-16 05:15:[address] [facility] BMI 2019-08-16 05:15:00 65.99 kg/m2 [facility] Body height 2019-08-16 00:00:[address] [facility] BP Diastolic 2019-04-25 00:00:00 80 mm[Hg] [facility] Height 2019-04-25 00:00:00 72 [in_i] [facility] BP Systolic 2019-04-25 00:00:00 130 mm[Hg] [facility] Respitory Rate 2018-08-26 01:25:00 [facility] Systolic (mm Hg) 2018-08-26 01:25:00 Levy [facility] Diastolic (mm Hg) 2018-08-26 01:25:00 Mem o[facility] Temperature Oral (F) 2018-08-26 01:25:00 98.3 F [facility] Heart Rate 2018-08-26 01:25:00 [facility] Systolic (mm Hg) 2018-08-25 20:52:00 [facility] Diastolic (mm Hg) 2018-08-25 20:52:00 [facility] Respitory Rate 2018-08-25 20:52:00 [facility] Heart Rate 2018-08-25 20:52:00 [facility] Temperature Oral (F) 2018-08-25 20:52:00 98.3 F [facility] Systolic (mm Hg) 2018-08-25 17:42:00 Levy [facility] Diastolic (mm Hg) 2018-08-25 17:42:00 Mem [facility] Respitory Rate 2018-08-25 17:42:00 [facility] Heart Rate 2018-08-25 17:42:00 [facility] Temperature Oral (F) 2018-08-25 17:42:00 98.6 F [facility] BMI Calculated 2018-08-23 05:36:00 [facility] Height 2018-08-23 05:36:00 182.88 cm [facility] Weight 2018-08-23 05:36:00 [facility] Weight 2018-08-22 21:04:00 [facility] BMI Calculated 2018-08-22 21:04:00 [facility] Height 2018-08-22 21:04:00 182.88 cm [facility] Respitory Rate 2018-08-18 09:10:00 [facility] Systolic (mm Hg) 2018-08-18 09:10:00 [facility] Diastolic (mm Hg) 2018-08-18 09:10:00 Mem [facility] BMI Calculated 2018-08-18 04:11:00 [facility] Weight 2018-08-18 04:11:00 [facility] Height 2018-08-18 04:11:00 182.88 cm [facility] Temperature Oral (F) 2018-08-18 04:11:00 98.6 F [facility] Systolic (mm Hg) 2018-08-18 04:11:00 [facility] Diastolic (mm Hg) 2018-08-18 04:11:00 [facility] [place] Respitory Rate 2018-08-18 04:11:00 [facility] Heart Rate 2018-08-18 04:11:00 [facility] Respitory Rate 2018-08-12 11:04:00 [facility] Systolic (mm Hg) 2018-08-12 11:04:00 [facility] Diastolic (mm Hg) 2018-08-12 11:04:00 [facility] Respitory Rate 2018-08-12 09:30:00 [facility] Systolic (mm Hg) 2018-08-12 09:30:00 [facility] Diastolic (mm Hg) 2018-08-12 09:30:00 [facility] Respitory Rate 2018-08-12 08:30:00 [facility] Systolic (mm Hg) 2018-08-12 08:30:00 [facility] Diastolic (mm Hg) 2018-08-12 08:30:00 [facility] Height 2018-08-12 05:35:00 175.26 cm [facility] BMI Calculated 2018-08-12 05:35:00 [facility] Weight 2018-08-12 05:35:00 [facility] Heart Rate 2018-08-12 05:35:00 [facility] Temperature Oral (F) 2018-08-12 05:35:00 98.7 F [facility] Temperature Oral (F) 2018-07-30 20:41:00 97.9 F [facility] Heart Rate 2018-07-30 20:41:00 [facility] Respitory Rate 2018-07-30 20:41:00 [facility] Systolic (mm Hg) 2018-07-30 20:41:00 [facility] Diastolic (mm Hg) 2018-07-30 20:41:00 [facility] [place] Respitory Rate 2018-07-30 16:18:00 [facility] Heart Rate 2018-07-30 16:18:00 [facility] Temperature Oral (F) 2018-07-30 16:18:00 97.9 F [facility] Systolic (mm Hg) 2018-07-30 16:18:00 [facility] [place] Diastolic (mm Hg) 2018-07-30 16:18:00 Mem [facility] Systolic (mm Hg) 2018-07-30 12:24:00 [facility] Diastolic (mm Hg) 2018-07-30 12:24:00 [facility] Respitory Rate 2018-07-30 12:24:00 [facility] Heart Rate 2018-07-30 12:24:00 [facility] Temperature Oral (F) 2018-07-30 12:24:00 98.0 F [facility] Weight 2018-07-30 10:59:00 [facility] BMI Calculated 2018-07-30 10:59:00 [facility] Height 2018-07-30 10:59:00 182.88 cm [facility] BMI Calculated 2018-07-30 00:32:00 Fatou Vicente Weight 2018-07-30 00:32:00 [facility] Height 2018-07-30 00:32:00 182.88 cm [facility] Procedures Procedure Date / Time Performing Clinician Source Performed POCT GLUCOSE (AUTOMATED) 2022-09-04 16:33:00 [facility] 2022-09-04 12:18:00 AsamoJaron mccullough [facility]UCOSE (AUTOMATED) 2022-09-04 02:06:00 AsamoJaron mccullough Uni versity [facility] POCT GLUCOSE (AUTOMATED) 2022-09-03 22:54:00 [facility]SE (AUTOMATED) 2022-09-03 17:01:00 Jaron Cruz [facility] COMP. METABOLIC PANEL 2022-09-03 14:44:00 Jaron Cruz [facility] ([id number]) [facility] CBC WITH DIFF 2022-09-03 14:44:00 Hanny Cruzshua Mott o f [facility] POCT GLUCOSE (AUTOMATED) 2022-09-03 12:33:00 Jaron Cruz Uni [facility] CLOSTRIDIUM DIFFICILE 2022-09-03 02:05:00 Jaron Cruz [facility] TOXIN [facility] POCT GLUCOSE (AUTOMATED) 2022-09-03 01:52:00 Jaron Cruz [facility] POCT GLUCOSE (AUTOMATED) 2022-09-02 21:55:00 AsaJaron dial Uni versity [facility] POCT GLUCOSE (AUTOMATED) 2022-07-28 21:19:00 Farooq Avilez [facility] TRANSTHORACIC ECHO (TTE) 2022-07-28 20:15:00 Ne Ash [facility] COMPLETE W/ CONTRAST [facility] POCT GLUCOSE (AUTOMATED) 2022-07-28 16:33:00 [facility] PO[facility] GLUCOSE (AUTOMATED) 2022-07-28 12:53:00 Farooq Avilez [facility] TROPONIN I 2022-07-28 11:04[facility] 2022-07-28 11:04:00 [facility] (NA, K, CL, CO2, GLUCOSE, Medica l Branch BUN, CREATININE, CA) CBC WITH DIFF 2022-07-28 11:04[facility]00 [facility] GLYCOS[facility]EMOGLOBIN 2022-07-28 11:04:00 Ne Ash [facility] (A1C) [facility] TROPONIN I 2022-07-28 05:56:00 [facility] PO[facility]SE (AUTOMATED) 2022-07-28 03:04:00 Farooq Avilez [facility] CT CHEST PULMONARY 2022-07-27 23:29:00 Link German [facility] ANGIOGRAM Medical Branch HB ECG ROUTINE & RHYTHM 2022-07-27 23:10:54 Link German [facility] STRIP [facility] PROTHROMBIN TIME / INR 2022-07-27 23:10:00 Link German [facility] ACTIVATED PARTIAL 2022-07-27 23:10:00 Link German [facility] THRMPLAS JUANHCO [facility] LIPASE 2022-07-27 23:05:00 Link German [facility] MAGNESIUM 2022-07-27 23:05:00 Link German [facility] TROPONIN I 2022-07-27 23:05:00 Link German [facility] COMP. METABOLIC PANEL 2022-07-27 23:05:00 Link German [facility] ([id number]) [facility] URINE DRUG (IMMUNOASSAY) 2022-07-27 23:05:00 Link German [facility] COMPREHENSIVE DRUG Medical [facility] SCREEN CBC WITH DIFF 2022-07-27 23:05:00 Link German [facility] URINALYSIS 2022-07-27 23:05:00 Link German [facility] o f [facility] N-TERMINAL PRO-BNP 2022-07-27 23:05:00 Link German [facility] ASSIGNMENT OF BENEFITS 2022-07-27 22:14:49 Doctor Unassigned, No [facility] Name [facility] CONSENT/REFUSAL FOR 2022-07-27 21:48:21 Doctor Unassigned, No [facility] DIAGNOSIS AND TREATMENT Name [facility] EKG-12 LEAD 2022-03-27 02:48:28 Ciara Ramirez [facility] CT CHEST PULMONARY 2022-03-27 01:46:00 Ciara Ramirez [facility] ANGIOGRAM [facility] XR ABDOMEN ACUTE SERIES 2022-03-27 00:41:46 Ciara Ramirez [facility] POCT TEST 2022-03-27 00:14:00 Ciara Ramirez [facility] URINALYSIS 2022-03-27 00:12:00 Ciara Ramirez [facility] LIPASE 2022-03-26 23:42:00 Ciara Ramirez [facility] TROPONIN I 2022-03-26 23:42:00 Ciara Ramirez [facility] HEPATIC FUNCTION PANEL 2022-03-26 23:42:00 Ciara Ramirez [facility] ([id number]) (ALB,T.PRO,[facility] T,BU/BC,ALT,AST,ALK PHOS) BASIC METABOLIC PANEL 2022-03-26 23:42:00 Ciara Ramirez [facility] (NA, K, CL, CO2, GLUCOSE, Medica l Branch BUN, CREATININE, CA) CBC WITH DIFF 2022-03-26 23:42:00 Ciara Ramirez [facility] D-DIMER 2022-03-26 23:42:00 Ciara Ramirez [facility] RAPID STREP SCREEN FOR 2022-03-26 23:42:00 Ciara Ramirez [facility] GROUP A [facility] RAPID INFLUENZA A/B 2022-03-26 23:42:00 Ciara Ramirez [facility] N-TERMINAL PRO-BNP 2022-03-26 23:42:00 Ciara Ramirez [facility] COVID-19 (ID NOW RAPID 2022-03-26 23:42:00 Ciara Ramirez [facility] TESTING) [facility] CONSENT/REFUSAL FOR 2022-03-26 22:54:44 Doctor Unassigned, No Un [facility] DIAGNOSIS AND TREATMENT Name [facility] POCT GLUCOSE (AUTOMATED) 2021-10-05 16:57:00 Mitchell Jacobs [facility] POCT GLUCOSE (AUTOMATED) 2021-10-05 13:01:00 Mitchell Jacobs [facility] MAGNESIUM 2021-10-05 09:32:00 Mitchell Jacobs [facility] BASIC METABOLIC PANEL 2021-10-05 09:32:00 Rajinder Ragland [facility] (NA, K, CL, CO2, GLUCOSE, Medica l Branch BUN, CREATININE, CA) CBC WITH DIFF 2021-10-05 09:32:00 maritza [facility] POCT GLUCOSE (AUTOMATED) 2021-10-05 09:30:00 Mitchell Jacobs [facility] POCT GLUCOSE (AUTOMATED) 2021-10-05 05:28:00 Mitchell Jacobs [facility] POCT GLUCOSE (AUTOMATED) 2021-10-05 01:57:00 Mitchell Jacobs [facility] POCT GLUCOSE (AUTOMATED) 2021-10-04 22:01:00 Mitchell Jacobs [facility] POCT GLUCOSE (AUTOMATED) 2021-10-04 17:02:00 Marnie Grimm [facility] PHOSPHORUS 2021-10-04 14:59:00 Mitchell Jacobs [facility] MAGNESIUM 2021-10-04 14:59:00 Mitchell Jacobs [facility] BASIC METABOLIC PANEL 2021-10-04 14:59:00 Mitchell Jacobs [facility] (NA, K, CL, CO2, GLUCOSE, Medica l Branch BUN, CREATININE, CA) POCT GLUCOSE (AUTOMATED) 2021-10-04 12:45:00 Marnie Grimm [facility] POCT GLUCOSE (AUTOMATED) 2021-10-04 08:46:00 Marnie Grimm [facility] POCT GLUCOSE (AUTOMATED) 2021-10-04 04:47:00 Marnie Grimm [facility] POCT GLUCOSE (AUTOMATED) 2021-10-04 01:54:00 Marnie Grimm [facility] POCT GLUCOSE (AUTOMATED) 2021-10-04 00:35:00 Marnie Grimm [facility] US PELVIS COMPLETE WITH 2021-10-03 23:29:00 Marnie Grimm [facility] TRANSVAGINAL [facility] POCT GLUCOSE (AUTOMATED) 2021-10-03 21:55:00 Marnie Grimm [facility] TROPONIN I 2021-10-03 20:52:00 Marnie Grimm [facility] BASIC METABOLIC PANEL 2021-10-03 20:52:00 Mitchell Jacobs [facility] (NA, K, CL, CO2, GLUCOSE, Medica l Branch BUN, CREATININE, CA) TRANSTHORACIC ECHO (TTE) 2021-10-03 17:30:00 Marnie Grimm [facility] W/ CONTRAST [facility] POCT GLUCOSE (AUTOMATED) 2021-10-03 16:54:00 Marnie Grimm [facility] POCT GLUCOSE (AUTOMATED) 2021-10-03 12:43:00 Marnie Grimm [facility] POCT GLUCOSE (AUTOMATED) 2021-10-03 10:23:00 Marnie Grimm [facility] PHOSPHORUS 2021-10-03 09:38:00 Marnie Grimm [facility] CREATINE KINASE 2021-10-03 09:38:00 Sirisha dariel [facility] URIC ACID 2021-10-03 09:38:00 Sirisha dariel [facility] MAGNESIUM 2021-10-03 09:38:00 Marnie Grimm [facility] OSMOLALITY, SERUM OR 2021-10-03 09:38:00 Marnie Grimm [facility] PLASMA [facility] TROPONIN I 2021-10-03 09:38:00 Sirisha [facility] COMP. METABOLIC PANEL 2021-10-03 09:38:00 Marnie Grimm [facility] ([id number]) [facility] CBC WITH DIFF 2021-10-03 09:38:00 Sirisha dariel [facility] N-TERMINAL PRO-BNP 2021-10-03 09:38:00 Marnie Grimm [facility] AC VBG + LACTIC ACID 2021-10-03 09:38:00 Marnie Grimm [facility] POCT GLUCOSE (AUTOMATED) 2021-10-03 06:54:00 Marnie Grimm [facility] POCT GLUCOSE (AUTOMATED) 2021-10-03 03:09:00 Marnie Grimm [facility] URINALYSIS 2021-10-03 03:06:00 Sirisha [facility] URINE CULTURE 2021-10-03 03:06:00 Sirisha dariel [facility] UREA NITROGEN, URINE 2021-10-03 03:06:00 Marnie Grimm [facility] SODIUM, URINE RANDOM 2021-10-03 03:06:00 Sirisha dariel [facility] PROTEIN CREAT RATIO URINE 2021-10-03 03:06:[address] [facility] AC PANEL 21 + LACTIC ACID 2021-10-03 02:28:00 Marnie Grimm [facility] SEDIMENTATION RATE 2021-10-03 02:26:00 Marnie Grimm [facility] PHOSPHORUS 2021-10-03 02:24:00 Sirisha dariel [facility] URIC ACID 2021-10-03 02:24:00 Sirisha [facility] MAGNESIUM 2021-10-03 02:24:00 Marnie Grimm [facility] FERRITIN SERUM 2021-10-03 02:24:00 Sirisha dariel [facility] OSMOLALITY, SERUM OR 2021-10-03 02:24:00 Marnie Grimm [facility] PLASMA [facility] VITAMIN B12, LEVEL 2021-10-03 02:24:00 Marnie Grimm [facility] [facility] 2021-10-03 02:24:00 Sirisha dariel [facility] THYROID STIMULATING 2021-10-03 02:24:00 Sirisha dariel [facility] HORMONE [facility] LIPID PANEL ([id number])(TOTAL 2021-10-03 02:24:00 Marnie Grimm [facility] CHOLESTEROL, Medical Branch TRIGLYCERIDES, HDL) IRON PANEL 2021-10-03 02:24:00 Sirisha dariel [facility] VITAMIN D, 25-OH 2021-10-03 02:24:00 Sirisha [facility] PROCALCITONIN 2021-10-03 02:24:00 Sirisha [facility] LOW-DENSITY LIPOPROTEIN, 2021-10-03 02:24:00 Marnie Grimm [facility] DIRECT [facility] CT ABDOMEN PELVIS W 2021-10-03 00:06:34 Cabrera Hook [facility] CONTRAST [facility] CT CHEST PULMONARY 2021-10-03 00:06:34 [facility] ANGIOGRAM Medical Branch POCT GLUCOSE (AUTOMATED) 2021-10-03 00:04:00 [facility] AC PANEL 20 + LACTIC ACID 2021-10-02 22:30:00 Lan Hook [facility] COVID-19 (ID NOW RAPID 2021-10-02 22:21:[address] [facility] TESTING) Medical Branch LAB ONLY COVID 2021-10-02 22:21:00 Cabrera Hook [facility] INTERPRETATION [facility] Branch XR CHEST 1 VW 2021-10-02 21:17:[address] [facility] LIPASE 2021-10-02 21:11:00 Miladys [facility] TROPONIN I 2021-10-02 21:11:00 Miladys [facility] COMP. METABOLIC PANEL 2021-10-02 21:11:00 Cabrera Hook [facility] ([id number]) [facility] DIFF CONSULT 2021-10-02 21:11:00 Marnie Grimm [facility] INTERPRETATION [facility] CBC WITH DIFF 2021-10-02 21:11:00 Miladys [facility] GLYCOSYLATED HEMOGLOBIN 2021-10-02 21:11:00 Sirisha dariel [facility] (A1C) [facility] PROTHROMBIN TIME / INR 2021-10-02 21:11:00 Cabrera Hook [facility] N-TERMINAL PRO-BNP 2021-10-02 21:11:00 [facility]ys [facility] ROUTINE & RHYTHM 2021-10-02 21:06:11 Cabrera Hook [facility] STRIP [facility] CONSENT/REFUSAL FOR 2021-10-02 20:41:03 Doctor Unassigned, No Un [facility] DIAGNOSIS AND TREATMENT Name Medical [place] CT CHEST PULMONARY 2021-04-13 08:48:00 Link German [facility] ANGIOGRAM Medical Branch URINALYSIS 2021-04-13 05:39:00 Link German [facility] COVID-19 (ID NOW RAPID 2021-04-13 05:22:00 Link [facility] TESTING) Medical Branch MAGNESIUM 2021-04-13 05:20:00 Link German [facility] TROPONIN I 2021-04-13 05:20:00 Link German [facility] COMP. METABOLIC PANEL 2021-04-13 05:20:00 Link German [facility] ([id number]) [facility] CBC WITH DIFF 2021-04-13 05:20:00 Monserrat, K Hedy [facility] D-DIMER 2021-04-13 05:20:00 Link German [facility] N-TERMINAL PRO-BNP 2021-04-13 05:20:00 Link German [facility] XR CHEST 1 VW 2021-04-13 05:15:07 Link German [facility] URINALYSIS 2021-03-04 00:25:00 Rosa Rice [facility] POCT TEST 2021-03-04 00:25:00 Rosa Rice [facility] URINE DRUG (IMMUNOASSAY) 2021-03-04 00:25:00 [facility]O [facility] CT CHEST PULMONARY 2021-03-03 23:45:43 [facility] CT HEAD WO CONTRAST 2021-03-03 23:44:50 Rosa Rice [facility] MAGNESIUM 2021-03-03 23:08:00 Rosa Rice [facility] TROPONIN I 2021-03-03 23:08:00 Rosa Rice [facility] THYROID STIMULATING 2021-03-03 23:08:00 Rosa Rice [facility] HORMONE [facility] COMP. METABOLIC PANEL 2021-03-03 23:08:00 Rosa [facility] ([id number]) [facility] CBC WITH DIFF 2021-03-03 23:08:00 Rosa Rice [facility] PROTHROMBIN TIME / INR 2021-03-03 23:08:00 Rosa Rice [facility] ACTIVATED PARTIAL 2021-03-03 23:08:00 Rosa Rice [facility] THRMPLAS JUANCHO [facility] N-TERMINAL PRO-BNP 2021-03-03 23:08:[address] [facility] COVID-19 (ID NOW RAPID 2021-03-03 23:08:00 oRsa Rice [facility] TESTING) Medical Branch NOTICE OF PRIVACY 2021-03-03 22:40:31 Doctor Unassigned, No [facility] PRACTICES Name Medical Branch CONSENT/REFUSAL FOR 2021-03-03 22:32:30 Doctor Unassigned, No Un [facility] DIAGNOSIS AND TREATMENT Name Medical Branch TROPONIN I 2020-12-31 05:46:00 Lisa Schulte [facility] COVID-19 (ID NOW RAPID 2020-12-31 05:15:00 Lisa Schulte Un [facility] TESTING) Medical Branch XR CHEST 1 VW 2020-12-31 03:53:02 Lisa Schulte [facility] MAGNESIUM 2020-12-31 03:33:00 Lisa Schulte [facility] TROPONIN I 2020-12-31 03:33:00 Lisa Schulte [facility] COMP. METABOLIC PANEL 2020-12-31 03:33:00 Lisa Schulte [facility] ([id number]) [facility] Branch CBC WITH DIFF 2020-12-31 03:33:00 Lisa Schulte [facility] N-TERMINAL PRO-BNP 2020-12-31 03:33:00 Lisa Schulte [facility] TROPONIN I 2020-10-15 02:43:00 Singer [facility] CT CHEST PULMONARY 2020-10-15 01:27:08 Singer [facility] ANGIOGRAM Medical Branch LIPASE 2020-10-15 00:32:00 Singer [facility] TROPONIN I 2020-10-15 00:32:00 Singer [facility] COMP. METABOLIC PANEL 2020-10-15 00:32:00 John James [facility] ([id number]) [facility] CBC WITH DIFF 2020-10-15 00:32:00 Singer [facility] N-TERMINAL PRO-BNP 2020-10-15 00:32:00 Singer [facility] POCT GLUCOSE (AUTOMATED) 2020-07-27 21:38:00 Olivia Fiore [facility] POCT GLUCOSE (AUTOMATED) 2020-07-27 18:55:00 Macarena Enideden [facility] POCT GLUCOSE (AUTOMATED) 2020-07-27 14:51:00 Suresh Fioreeden Vance [facility] MAGNESIUM 2020-07-27 09:01:00 Nathaniel Cruz [facility] BASIC METABOLIC PANEL 2020-07-27 09:01:00 Ketty [facility] (NA, K, CL, CO2, GLUCOSE, Medica l Branch BUN, CREATININE, CA) CBC WITH DIFF 2020-07-27 09:01:00 Ketty [facility] POCT GLUCOSE (AUTOMATED) 2020-07-27 02:26:00 Olivia Fiore [facility] POCT GLUCOSE (AUTOMATED) 2020-07-26 22:33:00 Olivia Fiore [facility] POCT GLUCOSE (AUTOMATED) 2020-07-26 17:13:00 Olivia Fiore [facility] POCT GLUCOSE (AUTOMATED) 2020-07-26 12:51:00 Olivia Fiore [facility] MAGNESIUM 2020-07-26 08:03:00 Alex Herbert [facility] TROPONIN I 2020-07-26 08:03:00 Ktety [facility] LIPID PANEL ([id number])(TOTAL 2020-07-26 08:03:00 Ketty [facility] CHOLESTEROL, [facility] TRIGLYCERIDES, HDL) PROTHROMBIN TIME / INR 2020-07-26 06:12:00 Ketty [facility] D-DIMER 2020-07-26 06:12:00 Ketty [facility] GLYCOSYLATED HEMOGLOBIN 2020-07-26 06:12:00 Ketty [facility] (A1C) [facility] URINALYSIS 2020-07-26 04:24:00 Antonio Adair [facility] URINE DRUG (IMMUNOASSAY) 2020-07-26 04:24:00 Antonio Adair [facility] - 4 ER PANEL Medical Branch COVID-19 (ID NOW RAPID 2020-07-26 02:47:00 Antonio [facility] TEST[facility]) [facility] XR CHEST 2 VW 2020-07-26 01:54:07 Antonio Adair [facility] POCT TEST 2020-07-26 01:15:00 Ludin Medrano [facility] N-TERMINAL PRO-BNP 2020-07-26 01:02:00 Ludin Medrano [facility] LIPASE 2020-07-26 01:02:00 Antonio Adair [facility] TROPONIN I 2020-07-26 01:02:[address] [facility] THYROID STIMULATING 2020-07-26 01:02:00 Joanne Hdez [facility] HORMONE [facility] COMP. METABOLIC PANEL 2020-07-26 01:02:00 Ludin Medrano [facility] ([id number]) [facility] CBC WITH DIFF 2020-07-26 01:02:[address] [facility] POCT GLUCOSE (AUTOMATED) 2020-04-09 18:00:00 Viral Olivares [facility] CREATINE KINASE 2020-04-07 11:03:00 Manuela Neely [facility] COVID-19 (ID NOW RAPID 2020-04-06 03:04:00 Ne [facility] TESTING) Medical Branch POCT TEST 2020-04-06 02:16:[address] [facility] HB ECG ROUTINE & RHYTHM 2020-04-06 01:35:56 Ne Rubin [facility] STRIP [facility] LIPASE 2020-04-06 01:34:00 Ne Rubin [facility] TROPONIN I 2020-04-06 01:34:00 Ne Rubin [facility] COMP. METABOLIC PANEL 2020-04-06 01:34:00 Ne Rubin [facility] ([id number]) Medical Branch ETHANOL 2020-04-06 01:34:00 [facility] TUBE [facility]. GREEN 2020-04-06 01:34:00 Ne Rubin [facility] SALICYLATE 2020-04-06 01:31:00 Caryn [facility] CBC WITH DIFF 2020-04-06 01:31:00 Caryn [facility] URINALYSIS 2020-04-06 01:31:00 [facility] L[facility] - DRUG SCREEN 2020-04-06 01:31:[address] [facility] XR CHEST 1 VW 2020-04-06 01:01:08 Caryn [facility] LIPASE 2019-12-26 06:48:00 Rosa Rice [facility] TROPONIN I 2019-12-26 06:48:00 Rosa Rice [facility] HEPATIC FUNCTION PANEL 2019-12-26 06:48:00 Freda [facility] [address] ([id number]) (ALB,T.PRO,BILI [facility] T,BU/BC,ALT,AST,ALK PHOS) BASIC METABOLIC PANEL 2019-12-26 06:48:00 [facility] (NA, K, CL, CO2, GLUCOSE, Medica l Branch BUN, CREATININE, CA) CBC WITH DIFF 2019-12-26 06:48:00 Rosa Rice [facility] ADC / LCC - DRUG SCREEN 2019-12-26 06:48:00 Rosa Rice [facility] POCT GLUCOSE (AUTOMATED) 2019-12-20 16:51:00 José Miguel Ramsay [facility] POCT GLUCOSE (AUTOMATED) 2019-12-20 13:50:00 José Miguel Ramsay [facility] CBC WITH DIFF 2019-12-20 09:26:00 Dave Walker [facility] MAGNESIUM 2019-12-20 09:25:00 Ramandeep Martinez [facility] BASIC METABOLIC PANEL 2019-12-20 09:25:00 Dave Walker [facility] (NA, K, CL, CO2, GLUCOSE, Medica l Branch BUN, CREATININE, CA) POCT GLUCOSE (AUTOMATED) 2019-12-20 01:58:00 José Miguel Ramsay [facility] POCT GLUCOSE (AUTOMATED) 2019-12-19 22:04:00 José Miguel Ramsay [facility] POCT GLUCOSE (AUTOMATED) 2019-12-19 16:59:00 José Miguel Ramsay [facility] EKG-12 LEAD 2019-12-19 14:50:05 José Miguel Ramsay [facility] POCT GLUCOSE (AUTOMATED) 2019-12-19 13:25:00 José Miguel Ramsay [facility] MAGNESIUM 2019-12-19 08:55:00 Ramandeep Martinez [facility] BASIC METABOLIC PANEL 2019-12-19 08:55:00 Dave Walker [facility] (NA, K, CL, CO2, GLUCOSE, Medica l Branch BUN, CREATININE, CA) EXTRA TUBE LAV 2019-12-19 08:55:00 José Miguel Ramsay [facility] POCT GLUCOSE (AUTOMATED) 2019-12-19 01:46:00 José Miguel Ramsay [facility] CT CHEST PULMONARY 2019-12-18 18:26:20 Ramandeep Martinez [facility] ANGIOGRAM [facility] [place] BILATERAL VENOUS DUPLEX 2019-12-18 18:23:42 Martin Martinez i [facility] LOWER EXTREMITY BY Medical [facility] h VASCULAR LAB POCT GLUCOSE (AUTOMATED) 2019-12-18 17:31:00 José Miguel Ramsay [facility] POCT GLUCOSE (AUTOMATED) 2019-12-18 13:10:00 José Miguel Ramsay [facility] BASIC METABOLIC PANEL 2019-12-18 10:21:00 Dave Walker [facility] (NA, K, CL, CO2, GLUCOSE, Medica l Branch BUN, CREATININE, CA) CBC WITH DIFF 2019-12-18 05:29:00 Denise [facility] TROPONIN I 2019-12-18 05:28:00 Denise [facility] D-DIMER 2019-12-17 22:51:00 Akil [facility] XR CHEST 1 VW 2019-12-17 21:18:12 Akil [facility] ADC / LCC - DRUG SCREEN 2019-12-17 21:12:00 Akil [facility] TRIAGE [facility] URINALYSIS 2019-12-17 20:47:00 Akil [facility] COVID-19 (ID NOW RAPID 2019-12-17 20:47:00 Kevin [facility] TESTING) [facility] EKG-12 LEAD 2019-12-17 20:45:10 Akil [facility] TEST, SERUM 2019-12-17 20:43:00 Kevin Barnard [facility] PROTHROMBIN TIME / INR 2019-12-17 20:43:00 Kevin [facility] ACTIVATED PARTIAL 2019-12-17 20:43:00 Akil [facility] THRMPLAS JUANCHO [facility] Branch MAGNESIUM 2019-12-17 20:42:00 Akil [facility] TROPONIN I 2019-12-17 20:42:00 Akil [facility] COMP. METABOLIC PANEL 2019-12-17 20:42:00 Kevin Barnard [facility] ([id number]) [facility] Branch CBC WITH DIFF 2019-12-17 20:42:00 Akil [facility] GLYCOSYLATED HEMOGLOBIN 2019-12-17 20:42:00 Denise [facility] (A1C) [facility] Branch N-TERMINAL PRO-BNP 2019-12-17 20:42:00 Kevin Barnard [facility] EKG-12 LEAD 2019-12-17 20:37:37 Akil [facility] EKG-12 LEAD 2019-12-17 20:37:24 Akil [facility] EKG-12 LEAD 2019-12-17 20:28:02 Akil Mott o f [facility] EMERGENCY DEPARTMENT 2019-12-17 05:01:00 Doctor Unassigned, No U [facility] DOCUMENTS Name Medical Branch AGREEMENTS AUTHORIZATIONS 2019-12-17 05:01:00 Doctor Unassigned, No [facility] AND IRREVOCABLE [facility] Medical Branch ASSIGNMENTS (FORM 2001) EXTERNAL PROVIDER RECORDS 2019-11-09 05:01:00 Doctor Unassigned, No [facility] POCT GLUCOSE (AUTOMATED) 2019-10-23 16:44:00 Fernandez Campbell [facility] POCT GLUCOSE (AUTOMATED) 2019-10-23 13:06:00 Fernandez Campbell [facility] BASIC METABOLIC PANEL 2019-10-23 09:38:00 Emunamedicapala, [facility] (NA, K, CL, CO2, GLUCOSE, Medica l Branch BUN, CREATININE, CA) CBC WITH DIFF 2019-10-23 09:38:00 [facility] / INR 2019-10-23 09:38:00 Gampala, [facility] ACTIVATED PARTIAL 2019-10-23 09:38:00 Gampala, [facility] POCT GLUCOSE (AUTOMATED) 2019-10-23 01:48:00 Fernandez Campbell [facility] POCT GLUCOSE (AUTOMATED) 2019-10-22 22:00:00 Fernandez Campbell [facility] CT ABDOMEN PELVIS W 2019-10-22 20:49:52 [facility] CONTRAST [facility] BASIC METABOLIC PANEL 2019-10-22 16:42:00 Emunamedicapala, [facility] (NA, K, CL, CO2, GLUCOSE, Medica l Branch BUN, CREATININE, CA) CBC WITH DIFF 2019-10-22 16:42:00 Gampala, [facility] PROTHROMBIN TIME / INR 2019-10-22 16:42:00 Gampala, [facility] ACTIVATED PARTIAL 2019-10-22 16:42:00 Gampala, [facility] POCT GLUCOSE (AUTOMATED) 2019-10-22 16:37:00 Fernandez Campbell [facility] POCT GLUCOSE (AUTOMATED) 2019-10-22 13:26:00 Fernandez Campbell [facility] POCT GLUCOSE (AUTOMATED) 2019-10-22 01:15:00 Fernandez Campbell [facility] TROPONIN I 2019-10-22 00:36:00 Bella [facility] POCT GLUCOSE (AUTOMATED) 2019-10-21 22:32:00 Fernandez Campbell [facility] POCT GLUCOSE (AUTOMATED) 2019-10-21 18:20:00 Fernandez Campbell [facility] TROPONIN I 2019-10-21 17:11:00 Bella [facility] POCT GLUCOSE (AUTOMATED) 2019-10-21 14:47:00 Fernandez Campbell [facility] MAGNESIUM 2019-10-21 09:45:00 Jose [facility] BASIC METABOLIC PANEL 2019-10-21 09:45:00 Con[facility] (NA, K, CL, CO2, GLUCOSE, Medica l Branch BUN, CREATININE, CA) CBC WITH DIFF 2019-10-21 09:45:00 Jose [facility] PROTHROMBIN TIME / INR 2019-10-21 09:45:00 Jose [facility] ACTIVATED PARTIAL 2019-10-21 09:45:00 Concetta Garcia [facility] POCT GLUCOSE (AUTOMATED) 2019-10-21 01:45:00 Fernandez Campbell [facility] POCT GLUCOSE (AUTOMATED) 2019-10-20 22:35:00 Fernandez Campbell [facility] CT THORAX W WO CONTRAST 2019-10-20 21:01:37 Concetta Garcia [facility] POCT GLUCOSE (AUTOMATED) 2019-10-20 19:49:00 Fernadnez Campbell [facility] ECHO ROUTINE W/DOPPLER 2019-10-20 15:19:23 Gampala, [facility] PHOSPHORUS 2019-10-20 13:54:00 Jose [facility] TROPONIN I 2019-10-20 13:54:00 Jose [facility] BASIC METABOLIC PANEL 2019-10-20 13:54:00 Jose [facility] (NA, K, CL, CO2, GLUCOSE, Medica l Branch BUN, CREATININE, CA) CBC WITH DIFF 2019-10-20 13:54:00 Jose [facility] PROTHROMBIN TIME / INR 2019-10-20 13:54:00 [facility] ACTIVATED PARTIAL 2019-10-20 13:54:00 Jose [facility] COVID-19 (ID NOW RAPID 2019-10-20 13:43:00 [facility] URINALYSIS 2019-08-31 01:26:00 Rosa Rice [facility] POCT GLUCOSE (AUTOMATED) 2019-08-16 14:07:00 Jeff Ervin [facility] EKG-12 LEAD 2019-08-16 12:37:55 Jeff Ervin [facility] MAGNESIUM 2019-08-16 09:36:00 Alex Barrow [facility] BASIC METABOLIC PANEL 2019-08-16 09:36:00 Alex Barrow [facility] (NA, K, CL, CO2, GLUCOSE, Medica l Branch BUN, CREATININE, CA) CBC WITH DIFFERENTIAL 2019-08-16 09:36:00 Alex Barrow [facility] ACTIVATED PARTIAL 2019-08-16 03:29:[address] [facility] POCT GLUCOSE (AUTOMATED) 2019-08-16 01:38:00 [facility] ECHO [facility]OUT[facility] W/DOPPLER 2019-08-15 19:40:11 Alex Barrow [facility] POCT GLUCOSE (AUTOMATED) 2019-08-15 16:39:00 Jeff Ervin [facility] POCT GLUCOSE (AUTOMATED) 2019-08-15 12:21:00 Jeff [facility]vin [facility] PHOSPHORUS 2019-08-15 09:38:00 Alex Barrow [facility] MAGNESIUM 2019-08-15 09:38:[address] [facility] THYROID STIMULATING 2019-08-15 09:38:00 Alex Barrow [facility] HORMONE [facility] BASIC METABOLIC PANEL 2019-08-15 09:38:00 Danial Alex [facility] (NA, K, CL, CO2, GLUCOSE, Medica l Branch BUN, CREATININE, CA) LIPID PANEL ([id number])(TOTAL 2019-08-15 09:38:00 Alex Barrow [facility] CHOLESTEROL, [facility] TRIGLYCERIDES, HDL) CBC WITH DIFFERENTIAL 2019-08-15 09:38:00 [facility] GLYCOSYLATED HEMOGLOBIN 2019-08-15 09:38:00 Alex Barrow [facility] (A1C) [facility] ACTIVATED PARTIAL 2019-08-15 09:38:00 [facility] THRMPLAS JUANCHO [facility] POCT GLUCOSE (AUTOMATED) 2019-08-15 03:26:00 Jeff Ervin [facility] TROPONIN I 2019-08-15 03:24:00 Alex Barrow [facility] PROTHROMBIN TIME / INR 2019-08-15 03:24:00 Alex Barrow [facility] POCT GLUCOSE (AUTOMATED) 2019-08-14 23:19:00 Link German [facility] TROPONIN I 2019-08-14 21:56:00 Link German [facility] CT CHEST PULMONARY 2019-08-14 19:16:58 Link German [facility] ANGIOGRAM [facility] POCT TEST 2019-08-14 17:50:[address] [facility] URINALYSIS 2019-08-14 17:45:00 Link German [facility] ADC / LCC - DRUG SCREEN 2019-08-14 17:45:00 Link German [facility] TRIAGE Medical Branch CBC WITH DIFFERENTIAL 2019-08-14 17:35:00 Link German [facility] COVID-19 (ID NOW RAPID 2019-08-14 17:34:00 Link [facility] TESTING) Medical Branch XR CHEST 1 VW 2019-08-14 17:24:25 Link German Mott o [facility] XR CERVICAL SPINE 3 VW 2019-08-14 17:24:25 Link German [facility] LIPASE 2019-08-14 17:10:00 Link German [facility] MAGNESIUM 2019-08-14 17:10:00 Link German [facility] TROPONIN I 2019-08-14 17:10:00 Link German [facility] COMP. METABOLIC PANEL 2019-08-14 17:10:00 Link German [facility] ([id number]) Medical Branch D-DIMER 2019-08-14 17:10:00 Link German Hedy [facility] N-TERMINAL PRO-BNP 2019-08-14 17:10:00 Link German [facility] EKG-12 LEAD 2019-08-14 16:26:12 Lisa Schulte [facility] EKG-12 LEAD 2019-08-14 16:24:03 Lisa Schulte [facility] EMERGENCY DEPARTMENT 2019-08-14 05:01:00 Doctor Unassigned, No [facility] DOCUMENTS Name [facility] HOSPITAL ADMISSION 2019-08-14 05:01:00 Doctor Unassigned, No [facility] Anesth Tubal Ligation [facility] Appendectomy [facility] Appendectomy [facility] section [facility] Jorge n ESWL - Extracorporeal [facility] shock wave lithotripsy of bile duct calculus Laparoscopic adjustable [facility] gastric banding<sup>1</sup> Partial resection of [facility] colon Plan of Care Planned Activity Planned Date Details Comments Source Future Scheduled 2022-11-[address] [facility] Test 00:00:00 (Season Ended) [code = [facility] Center Influenza Vaccine (Season Ended)] Future Scheduled 2022-11-[address] [facility] Test 00:00:00 (Season Ended) [code = [facility] al Center Influenza Vaccine (Season Ended)] Future Scheduled 2022-11-[address] [facility] Test 00:00:00 (Season Ended) [code = Medic al Center Influenza Vaccine (Season Ended)] Future Scheduled 2022-11-[address] [facility] Test 00:00:00 (Season Ended) [code = Medic al Center Influenza Vaccine (Season Ended)] Future Scheduled 2022-03-[address] [facility] Test 00:00:00 (12+) [code = Medical Center DEPRESSION SCREENING (12+)] Future Scheduled 2022-03-[address] [facility] Test 00:00:00 (12+) [code = Medical Center DEPRESSION SCREENING (12+)] Future Scheduled 2022-03-[address] [facility] Test 00:00:00 (12+) [code = Medical Center DEPRESSION SCREENING (12+)] Future Scheduled 2022-03-[address] [facility] Test 00:00:00 (12+) [code = Medical Center DEPRESSION SCREENING (12+)] Future Scheduled 2020-11-20 INFLUENZA VACCINE (#1) [facility]:00 [code = INFLUENZA Medical Ce nter VACCINE (#1)] Future Scheduled 2020-03-[address] [facility] Test 00:00:00 (12+) [code = Medical Center DEPRESSION SCREENING (12+)] Future Scheduled 2001-02-[address] [address] [facility] 00:[facility]:00 malignant neoplasm of [facility]ica [facility] Center cervix (procedure) [code = 340694619] Future Scheduled 2001-02-[address] [facility] 00:00:00 malignant neoplasm [facility] cervix (procedure) [code = 354750218] Future Scheduled 2001-02-23 [facility] cervix (procedure) [code = 097078457] Future Scheduled 2001-02-[address] [facility] 00:[facility]00 [facility] cervix (procedure) [code = 998845488] Future Scheduled 2001-02-[address] [facility] 00:00:00 [facility] cervix (procedure) [code = 143616693] Future Scheduled [address] [facility] 00[facility]:00 (procedure) [code = [facility] 01165560] Future Scheduled [address] [facility] 00:00:00 (procedure) [code = [facility] 90956166] Future Scheduled [address] [facility] 00:00:00 (procedure) [code = [facility] 19938087] Future Scheduled [address] [facility] 00:00:00 (procedure) [code = [facility] 79512688] Future Scheduled [address] [facility] 00:00:00 (procedure) [code = [facility] 41398035] Future Scheduled 1999-02-23 DTAP/TDAP/TD VACCINES [facility] SCREENING] Future Scheduled 1992 COVID-19 VACCINE (1) [facility] 00:[facility]:00 [code = COVID-[address] VACCINE (1)] Future Scheduled [address] [facility] 00:00:00 Counseling and Medical Cente r Screening (12+) [code = Tobacco Cessation Counseling and Screening (12+)] Future Scheduled [address] [facility] 00:00:00 Counseling and Medical Cente r Screening (12+) [code = Tobacco Cessation Counseling and Screening (12+)] Future Scheduled [address] [facility] 00:00:00 Counseling and Medical Cente r Screening (12+) [code = Tobacco Cessation Counseling and Screening (12+)] Future Scheduled [address] [facility] 00:00:00 Counseling and Medical Cente r Screening (12+) [code = Tobacco Cessation Counseling and Screening (12+)] Future Scheduled 1986-02-[address] [facility] 00:00:00 0-64 YRS (1 of 2 - Medical C enter PPSV23) [code = PNEUMOCOCCAL VACCINE 0-64 YRS (1 of 2 - PPSV23)] Future Scheduled 1986-02-23 Pneumococcal Vaccine: [facility]:00 0-64 Years (1 - PCV) Medical Center [code = Pneumococcal Vaccine: 0-64 Years (1 - PCV)] Future Scheduled 1986-02-23 Pneumococcal Vaccine: [facility]:00 0-64 Years (1 - PCV) [facility] Center [code = Pneumococcal Vaccine: 0-64 Years (1 - PCV)] Future Scheduled 1986-02-23 Pneumococcal Vaccine: [facility]:00 0-64 Years (1 - PCV) Medical Center [code = Pneumococcal Vaccine: 0-64 Years (1 - PCV)] Future Scheduled 1986-02-23 Pneumococcal Vaccine: [facility]:00 0-64 Years (1 - PCV) Medical Center [code = Pneumococcal Vaccine: 0-64 Years (1 - PCV)] Future Scheduled 1980 COVID-19 VACCINE (#1) [facility] 00:[facility]:00 [code = COVID-[address] VACCINE (#1)] Future Scheduled 1980 COVID-19 VACCINE (#1) [facility] 00:00:00 [code = COVID-[address] VACCINE (#1)] Future Scheduled 1980 COVID-19 VACCINE (#1) [facility] 00:00:00 [code = COVID-[address] VACCINE (#1)] Future Scheduled 1980 COVID-19 VACCINE (#1) [facility] 00:00:00 [code = COVID-[address] VACCINE (#1)] Encounters Start End Encounter Admission Attending Care Care Encounter Source Date/Time Date/Time Type Type Clinicians Facility Department ID 2022-09-[address] [facility] Gastro [id number] [facility]27 [facility] 2022-02-06 Inpatient TEXANA TEXANA [id number] [place] 13:35:[address] [place] [address] 2021-01-21 [facility] [id number] Univers 05:57:19 ity of [facility] 2021-01-20 [facility] [id number] Univers 10:57:06 ity of [facility] 2021-01-19 [facility] [id number] Univers 17:39:33 ity of [facility] 2021-01-17 Emergency [facility] [id number] Univers 21:13:06 ity of [facility] 2021-01-17 [facility] [id number] Univers 19:38:23 ity of [facility] 2021-01-17 Emergency [facility] [id number] Univers 17:29:43 ity of [facility] 2021-01-17 Inpatient U ALVINO [facility] ALISHA [id number] Univers 09:57:56 FERNANDEZ ity of [facility] 2021-01-17 Emergency [facility] [id number] Univers 00:29:03 ity of [facility] 2022-09-08 2022-09-08 Transition ELOINA Arriaga 1.2.840.114 [id number] Univers 00:00:00 00:00:00 of Care Chelsie [place] 350.1.13.10 [place] [id number] [address] 2022-09-02 2022-09-04 Outpatient U [facility]ARON CRUZ [facility] [id number] Univers 15:18:00 12:15:00 JARON CRUZ ity [facility] 2022-09-02 2022-09-04 [facility] 1.2.840.114 [id number] Univers 15:18:00 12:15:00 Encounter [facility] 350.1.13.10 ity of [place] [facility] [phone] [address] ([facility]) 2022-07-29 2022-07-29 Transition ELOINA Arriaga 1.2.840.114 [id number] Univers 00:00:00 00:00:00 of Care Chelsie PALOM[place] 350.1.13.10 [place] [id number] [address] 2022-07-27 2022-07-28 Outpatient X RADHAKENNETH [facility] ALISHA [id number] Univers 16:53:00 18:17:00 FAROOQ ity [facility] 2022-07-27 2022-07-28 Emergency Link German [facility] 1.2.840. 114 [id number] Univers 16:53:00 18:17:00 Farooq Avilez 350.1.13.10 ity of Dae Mcginnis 4.2.7.2.686 [facility] [phone] [facility] [address] 2022-03-26 2022-03-26 Emergency X VICKI [facility] ERT [id number] Univers 17:02:00 22:18:00 CIARA itpaul [facility] 2022-03-26 2022-03-26 Emergency Vicki [facility] 1.2.864.527 [id number] Univers 17:02:00 22:18:00 Ciara HERNANDEZ 350.1.13.10 i ty of Mihir SHETH 4.2.7.2.686 [facility] [id number] [facility] [address] 2021-10-20 2021-10-20 Outpatient MAYTE_IRASEMA [facility] 803 [place] 00:00:00 00:00:00 SSA 0801 da [facility] 2021-10-07 2021-10-07 Transition ELOINA Arriaga 1.2.840.114 [id number] Univers 00:00:00 00:00:00 of Care Chelsie PALOMINO 350.1.13.10 it y of [place] 4.2.7.2.686 [facility] [phone] [facility] [address] 2021-10-02 2021-10-05 Outpatient X VU [facility] ALISHA [id number] Univers 16:00:00 15:22:00 MITCHELL ity [facility] 2021-10-02 2021-10-05 [facility] 1.2.8 40.114 [id number] Univers 16:00:00 15:22:00 Encounter Marnie Grimm 350.1.13.10 ity of [place] 4.2.7.2.686 [facility] [id number] [facility] [address] 2021-04-12 2021-04-13 Emergency X Link GERMAN [facility] ERT [id number] Univers 22:49:00 04:26:00 ity of [facility] 2021-04-12 2021-04-13 Emergency Link German [facility] 1.2.840.114 [id number] Univers 22:49:00 04:26:00 Hedy HERNANDEZ 350.1.13.10 i ty of [place] 4.2.7.2.686 [facility] [id number] [facility] [address] 2021-03-03 2021-03-03 Emergency X [facility], [facility] ERT [id number] Univers 16:49:00 20:02:00 ROSA ity of [facility] 2021-03-03 2021-03-03 [facility] 1.2.141.393 [id number] Univers 16:49:00 20:02:00 Rosa HERNANDEZ 350.1.13.10 ity of [place] 4.2.7.2.686 [facility] [id number] [facility] [address] 2020-12-30 2020-12-31 [facility] 1.2.840.114 [id number] Univers 22:16:00 02:30:00 Lisa Hernandez 350.1.13.10 ity of [place] 4.2.7.2.686 [facility] [id number] [facility] [address] 2020-10-14 2020-10-15 Emergency , [facility] 1.2.482.949 [id number] Univers 19:09:00 00:05:00 John Hernandez 350.1.13.10 i ty of [place] 4.2.7.2.686 [facility] [id number] [facility] [address] 2020-07-25 2020-07-27 Emergency Antonio Adair 1.2.840.1 14 [id number] Univers 18:59:00 19:35:00 Jeff Ervin 350.1. 13.10 ity of [facility] 4.2.7.2 .686 [place] [id number] [facility] [address] 2020-06-02 2020-06-02 Inpatient [id number] [facility] 14:15:40 14:15:40 Rosa 42 [facility] 2020-04-05 2020-04-09 Emergency Ne Rubin [facility] 1.2.840.1 14 [id number] 18:06:00 17:15:00 Viral Olivares [place] 350.1.13.10 Manuela Neely [place] 4.2.7.2. [address] [place] [address] [id number] 4 2020-04-05 2020-04-09 Emergency X AUPARVEENERRANDYIDE [facility] ERT [id number] Univers 18:06:00 17:15:00 , MANUELA currie of [facility] 2020-04-05 2020-04-09 Emergency Ne Rubin S [facility] 1.2.840.1 14 [id number] [facility] 18:06:00 17:15:00 Viral Olivares [place] 350.1.13.10 ity of Manuela [place] 4.2.7.2. 686 [facility] [phone] [place] [address] [place] 2020-02-02 2020-02-02 Patient Tabby Atkins 1.2.840.114 [id number] 00:00:00 00:00:00 Outreach E [place] 350.1.13.10 [place] 4.2.7.2.686 [id number] [facility] 2020-02-02 2020-02-02 Patient Tabby Atkins 1.2.840.114 [id number] [facility] 00:00:00 00:00:00 Outreach E [place] 350.1.13.10 i ty of [place] [id number] [facility] [address] 2020-01-29 2020-01-29 Patient Tabby Atkins 1.2.840.114 [id number] 00:00:00 00:00:00 Outreach E [place] 350.1.13.10 [place] 4.2.7.2.686 [id number] [facility] 2020-01-29 2020-01-29 Patient Tabby Atkins 1.2.840.114 [id number] [facility] 00:00:00 00:00:00 Outreach E [place] 350.1.13.10 i ty of [place] [id number] [place] [address] [place] 2020-01-22 2020-01-22 Patient Tabby Atkins 1.2.840.114 [id number] 00:00:00 00:00:00 Outreach E [place] 350.1.13.10 [place] 4.2.7.2.686 [id number] [facility] 2020-01-22 2020-01-22 Patient Tabby Atkins 1.2.840.114 [id number] Univers 00:00:00 00:00:00 Outreach E [place] 350.1.13.10 i ty [place] [id number] [address] 2020-01-15 2020-01-15 Patient Tabby Atkins 1.2.840.114 [id number] 09:59:05 10:19:05 Outreach E [place] 350.1.13.10 [place] 4.2.7.2.686 [id number] [facility] 2020-01-15 2020-01-15 Patient Tabby Atkins 1.2.840.114 [id number] [facility] 09:59:05 10:19:05 Outreach E [place] 350.1.13.10 i ty [place] [id number] [address] 2020-01-10 2020-01-10 Patient Eloina Rutledge 1.2.840.114 [id number] 00:00:00 00:00:00 Outreach Jessica E [place] 350.1.13.10 [place] 4.2.7.2.686 [id number] [facility] 2020-01-10 2020-01-10 Patient Eloina Rutledge 1.2.840.114 [id number] Univers 00:00:00 00:00:00 Outreach Jessica E Aplomino 350.1.13.10 i ty of [place] [id number] [address] 2020-01-01 2020-01-01 Patient Eloina Rutledge 1.2.840.114 [id number] 00:00:00 00:00:00 Outreach Jessica E [place] 350.1.13.10 [place] 4.2.7.2.686 [id number] [facility] 2020-01-01 2020-01-01 Patient Eloina Rutledge 1.2.840.114 [id number] Univers 00:00:00 00:00:00 Outreach Jessica E [place] 350.1.13.10 i ty [place] [phone] [address] 2019-12-29 2019-12-29 Patient Tabby Atkins 1.2.840.114 [id number] 00:00:00 00:00:00 Outreach E [place] 350.1.13.10 [place] 4.2.7.2.686 [id number] [facility] 2019-12-29 2019-12-29 Patient Tabby Atkins 1.2.840.114 [id number] [facility] 00:00:00 00:00:00 Outreach E [place] 350.1.13.10 i ty [place] [id number] [address] 2019-12-26 2019-12-26 Emergency [facility] 1.2.359.268 [id number] 00:52:00 03:07:00 Rosa Gunderson [place] 350.1.13.10 [place] 4.2.7.2.686 [place] [id number] [facility] 2019-12-26 2019-12-26 Emergency [facility] 1.2.697.644 [id number] [facility] 00:52:00 03:07:00 Rosa Gunderson [place] 350.1.13.10 ity of [place] [id number] [address] 2019-12-24 2019-12-24 Emergency ER [facility] Emergency [id number] [facility] 22:57:00 22:57:00 2019-12-22 2019-12-22 Patient Tabby Atkins 1.2.840.114 [id number] 00:00:00 00:00:00 Outreach E [place] 350.1.13.10 [place] 4.2.7.2.686 [id number] [facility] 2019-12-22 2019-12-22 Patient Tabby Atkins 1.2.840.114 [id number] [facility] 00:00:00 00:00:00 Outreach E [place] 350.1.13.10 i ty of [place] [id number] [address] 2019-12-21 2019-12-21 Transition Eloina Torres 1.2.840.114 [id number] Univers 00:00:00 00:00:00 of Care Marilyn [place] 350.1.13.10 ity of [place] [id number] [address] 2019-12-21 2019-12-21 Transition Eloina Torres 1.2.840.114 [id number] 00:00:00 00:00:00 of Care Marilyn Palom[place] 350.1.13.10 [place] 4.2.7.2.686 [id number] [facility] 2019-12-17 2019-12-20 Hospital Kevin Barnarde 1.2.840.1 14 [id number] Univers 15:26:00 18:19:00 Encounter José Miguel Ramsayy 350.1.13.1 0 ity of [facility] 4.2.7.2.686 [place] [phone] [facility] [address] [place] [address] 2019-12-20 2019-12-20 Transition Eloina Torres 1.2.840.114 [id number] Univers 00:00:00 00:00:00 of Care Marilyn Palom[place] 350.1.13.10 ity of [place] [id number] [address] 2019-12-20 2019-12-20 Patient Tabby Atkins Eloina 1.2.840.114 [id number] Univers 00:00:00 00:00:00 Outreach E [place] 350.1.13.10 i ty of [place]2.[place] [id number] [address] 2019-11-09 2019-11-09 Orders Doctor DIEGO 1.2.840.114 [id number] Univers 00:00:00 00:00:00 Only Unassigned, DENISE 350.1.13.10 ity of [facility] 4.2.7.2.686 Jorge as [phone] [facility] [address] 2019-10-24 2019-10-24 Transition Eloina Torres 1.2.840.114 [id number] Univers 00:00:00 00:00:00 of Care Marilyn [place]omino 350.1.13.10 ity of [place] [phone] [facility] [address] 2019-10-24 2019-10-24 Telephone Janak Blanco 1.2.840.114 [id number] Univers 00:00:00 00:00:00 DENISE 350.1.13.10 it y of [facility] 4.2.7.2.686 Jorge as [phone] [facility] [address] 2019-10-20 2019-10-23 [facility] Fernandez Campbell 1.2. 840.114 [id number] Univers 07:26:00 19:15:00 Encounter Gianluca Aburto Stevenson 350.1.13. 10 ity of [facility] 4.2.7.2.686 Jorge as [phone] [facility] [address] 2019-08-30 2019-08-30 Emergency [facility] 1.2.673.277 [id number] Univers 19:56:16 22:58:00 Rosa Hernandez 350.1.13.10 ity [facility] 4.2.7.2.[place] [id number] [facility] [address] 2019-08-14 2019-08-16 Outpatient X [facility] [id number] Univers 11:21:43 19:15:00 JEFF itpaul [facility] 2019-08-14 2019-08-16 Emergency Link German 1.2.840. 114 [id number] Univers 11:21:43 19:15:00 Jeff Ervin 350.1. 13.10 ity of [facility] 4.2.7.2.686 Jorge as [phone] [facility] [address] 2019-06-27 2019-06-27 Outpatient Tammy YEUNG [facility] [id number] Univers 11:20:00 11:20:00 KWABENA finny o f [facility] 2019-06-27 2019-06-27 Telemedici Ap [facility] 1.2.840.114 [id number] Univers 08:21:31 08:36:31 ne Visit Kwabena Hernandez 350.1.13.10 [place] 4.2.7.2.686 Karma Beltre [phone] Oh dical nal 059 [facility] 2019-04-30 2019-04-30 Outpatient Ambeaux [facility] [id number] [place] 12:23:00 12:23:00 0209 [facility] 2019-04-25 2019-04-25 Aleksandar Ambeaux [facility] [place] - [phone] [place] 00:00:00 00:00:00 Discovery Akil 0204 jewell MD: Ermias [facility] [address], [place] [address] , Ph. 2019-01-13 2019-01-13 Outpatient Ambeaux MM[facility] MMG [id number] 019 [place] 10:25:00 10:25:00 1025 Medical [facility] 2018-08-22 2018-08-26 Observatio nullFlavo [facility] 5529 [id number] Memoria 21:01:14 03:07:00 adriana Yañez 02 l [facility] 2018-08-22 2018-08-26 Observatio nullFlavo [facility] 5529 [id number] Memoria 21:01:14 03:07:00 adriana Hartmna l [facility] 2018-08-22 2018-08-25 Outpatient Puntiffanieir, BEAN [facility] [id number] 16:01:14 22:07:00 Cherie 02 2018-08-22 2018-08-22 Outpatient E [facility] 7502 [facility] 22:10:00 22:10:00 2018-08-18 2018-08-18 Emergency nullFlavo [facility] [id number] 22123 Memoria 03:46:47 09:39:00 tammy valles [facility] 2018-08-18 2018-08-18 Emergency nullFlavo [facility] [id number] Memoria 03:46:47 09:39:00 tammy valles [facility] 2018-08-17 2018-08-18 Outpatient Nick [facility] [id number] 675 22:46:47 04:39:00 Lip[place] 2018-08-17 2018-08-17 Emergency E [facility] NE 7501 [facility] 22:46:00 22:46:00 2018-08-12 2018-08-12 Emergency nullFlavo [facility] [id number] Memoria 05:29:03 11:21:00 r Rangeley 00 l [facility] 2018-08-12 2018-08-12 Emergency nullFlavo [facility] [id number] Memoria 05:29:03 11:21:00 r Otilio 00 l [facility] 2018-08-12 2018-08-12 Outpatient Nick [facility] [id number] 00:29:03 06:21:00 [place] 2018-08-12 2018-08-12 Emergency E [facility] 7500 [facility] 00:29:00 00:29:00 2018-07-30 2018-07-30 Observatio nullFlavo [facility] 4668 [id number] Memoria 00:27:04 21:24:00 n tammy Yañez The 00 [facility] 2018-07-30 2018-07-30 Observatio nullFlavo [facility] 4668 [id number] Memoria 00:27:04 21:24:00 n tammy Yañez The 00 [facility] 2018-07-29 2018-07-30 Outpatient FANY Saavedra [facility] [id number] 19:27:04 16:24:00 Beck 00 2018-07-29 2018-07-29 [facility] 7500 T 23:06:00 23:06:00 Results Test Description Test Time Test Comments Results Result Comments Source POCT GLUCOSE (AUTOMATED) 2022-09-04 16:34:55 Test Item Value Reference Range Interpretation Comme nts POCT GLU (test code = 4148155644) 172 mg/dL 70-110 H Lab Interpretation (test code = 35138-9) Abnormal [facility] GLUCOSE (AUTOMATED)2022-09-04 12:29:32 Test Item Value Reference Range Interpretation Comments POCT GLU (test code = 6739642063) 133 mg/dL 70-110 H Lab Interpretation (test code = Abnormal 55530-7) [facility] GLUCOSE (AUTOMATED)2022-09-04 02:07:25 Test Item Value Reference Range Interpretation Comments POCT GLU (test code = 3837203643) 152 mg/dL 70-110 H Lab Interpretation (test code = Abnormal 42886-1) [facility] GLUCOSE (AUTOMATED)2022-09-03 22:55:54 Test Item Value Reference Range Interpretation Comments POCT GLU (test code = 5249155125) 187 mg/dL 70-110 H Lab Interpretation (test code = Abnormal 88563-7) [facility] GLUCOSE (AUTOMATED)2022-09-03 17:02:39 Test Item Value Reference Range Interpretation Comments POCT GLU (test code = 3740081111) 176 mg/dL 70-110 H Lab Interpretation (test code = Abnormal 19814-7) [facility] WITH [id number] 15:17:04 Test Item Value Reference Range Interpretation Comments WBC (test code = 5.88 See_Comment [Automated message] 0590-2) The system LEAFER generated this result transmitted ref erence range: 4.30 - 1 1.10 10*3/?L. The re ference range was not u sed to interpret this result as normal/abnor mal. RBC (test code = 5.04 See_Comment [Automated message] 539-8) The system LEAFER generated this result transmitted ref erence range: 3.93 - 5 .25 10*6/?L. The re ference range was not u sed to interpret this result as normal/abnor mal. HGB (test code = 14.0 g/dL 11.6-15.0 718-7) HCT (test code = 42.8 % 35.7-45.2 4544-3) MCV (test code = 84.9 fL 80.6-95.5 787-2) MCH (test code = 27.8 pg 25.9-32.8 785-6) MCHC (test code = 32.7 g/dL 31.6-35.1 786-4) RDW-SD (test code 44.1 fL 39.0-49.9 = 59308-2) RDW-CV (test code 14.3 % 12.0-15.5 = 788-0) PLT (test code = 220 See_Comment [Automated message] 777-3) The system whic h generated this result transmitted ref erence range: 166 - 35 8 10*3/?L. The re ference range was not u sed to interpret this result as normal/abnor mal. MPV (test code = 9.9 fL 9.5-12.9 33421-4) NRBC/100 WBC (test 0.0 See_Comment [Automat ed message] code = 2363455493) The syste m which generated this result transmitted ref erence range: 0.0 - 10 .0 /100 WBCs. The refer ence range was not u sed to interpret this result as normal/abnor mal. NRBC x10^3 (test See_Comment [Automated message] code = 0883409956) The syste m which generated this result transmitted ref erence range: 10*3/?L. The reference range was not used to interpr et this result as normal/abnormal . GRAN MAT (NEUT) % 57.2 % (test code = 770-8) IMM GRAN % (test 0.20 % code = 4066164397) LYMPH % (test code 33.2 % = 736-9) MONO % (test code 6.0 % = 5905-5) EOS % (test code = 3.2 % 713-8) BASO % (test code 0.2 % = 706-2) GRAN MAT 3.37 10*3/uL 1.88-7.09 x10^3(ANC) (test code = 5308921355) IMM GRAN x10^3 0.00-0.06 (test code = 3090417635) LYMPH x10^3 (test 1.95 10*3/uL 1.32-3.29 code = 731-0) MONO x10^3 (test 0.35 10*3/uL 0.33-0.92 code = 742-7) EOS x10^3 (test 0.19 10*3/uL 0.03-0.39 code = 711-2) BASO x10^3 (test 0.01-0.07 code = 704-7) [facility] GLUCOSE (AUTOMATED)2022-09-03 12:34:11 Test Item Value Reference Range Interpretation Comments POCT GLU (test code = 0939107734) 143 mg/dL 70-110 H Lab Interpretation (test code = Abnormal 01795-7) [facility] GLUCOSE (AUTOMATED)2022-09-03 01:53:28 Test Item Value Reference Range Interpretation Comments POCT GLU (test code = 2262089107) 166 mg/dL 70-110 H Lab Interpretation (test code = Abnormal 49187-9) [facility] GLUCOSE (AUTOMATED)2022-09-02 21:56:41 Test Item Value Reference Range Interpretation Comments POCT GLU (test code = 8145949730) 144 mg/dL 70-110 H Lab Interpretation (test code = Abnormal 64547-4) [facility] GLUCOSE (AUTOMATED)2022-07-28 21:20:11 Test Item Value Reference Range Interpretation Comments POCT GLU (test code = 5239486738) 138 mg/dL 70-110 H Lab Interpretation (test code = Abnormal 73497-0) [facility] GLUCOSE (AUTOMATED)2022-07-28 16:34:30 Test Item Value Reference Range Interpretation Comments POCT GLU (test code = 3709688256) 140 mg/dL 70-110 H Lab Interpretation (test code = Abnormal 21470-0) [facility]2022-07-28 14:41:42 Test Item Value Reference Range Interpretation Comments HGB A1C (test code = 8.3 % 4.0-5.7 H 4548-4) LAKESHIA (test code = LAKESHIA) Reference RangesNormal: <5.7%Prediabetes: 5.7 - 6.4%Diabetes: > 6.5% Lab Interpretation (test Abnormal code = 65241-4) [facility] GLUCOSE (AUTOMATED)2022-07-28 12:54:22 Test Item Value Reference Range Interpretation Comments POCT GLU (test code = [id number]) 150 mg/dL 70-110 H Lab Interpretation (test code = Abnormal 03372-6) [facility] (NA, K, CL, CO2, GLUCOSE, BUN, [place], [place])2022-07-28 12:15:48 Test Item Value Reference Range Interpretation Comments NA (test code = 136 mmol/L 135-145 1790743867) K (test code = 3.7 mmol/L 3.5-5.0 0864335340) CL (test code = 102 mmol/L 98-108 1847001071) CO2 TOTAL (test code = 27 mmol/L 23-31 9425108590) AGAP (test code = 7 2-16 5951153604) BUN (test code = 19 mg/dL 7-23 7036907408) GLUCOSE (test code = 128 mg/dL 70-110 H 7095674531) CREATININE (test code = 0.75 mg/dL 0.50-1.04 5016287498) CALCIUM (test code = 8.6 mg/dL 8.6-10.6 8001125900) eGFR (test code = 84.7 mL/min/1.73m2 4630748322) LAKESHIA (test code = LAKESHIA) Association of [...] tests). Lab Interpretation Abnormal (test code = 53412-1) [facility] [id number] 12:08:14 Test Item Value Reference Range Interpretation Comments TROPONIN I (test code = 0.001 ng/mL <=0.034 0234032836) LAKESHIA (test code = LAKESHIA) Reference (Normal) [...] biotin. Lab Interpretation Normal (test code = 89766-3) [facility] with [id number] 11:28:34 Test Item Value Reference Range Interpretation Comments WBC (test code = 7.64 See_Comment [Automated 2673-2) message] The sy stem which generated this result transmitted reference range : 4.30 - 11.10 10*3/?L. The reference range was not used to interpret this result as normal/abnormal . RBC (test code = 5.05 See_Comment [Automated 539-8) message] The sy stem which generated this [...] RDW-SD (test code = 43.1 fL 39.0-49.9 42382-3) RDW-CV (test code = 14.0 % 12.0-15.5 788-0) PLT (test code = 261 See_Comment [Automated 777-3) message] The sy stem which generated this result transmitted reference range : 166 - 358 10*3/ ?L. The reference r alee was not used to interpret this result as normal/abnormal . MPV (test code = 9.6 fL 9.5-12.9 11911-4) NRBC/100 WBC (test 0.0 See_Comment [Automat ed code = 9261804334) message] The system which generated this result transmitted reference range : 0.0 - 10.0 /100 WBCs. The refer ence range was not u sed to interpret th is result as normal/abnormal . NRBC x10^3 (test code See_Comment [Auto mated = 5808463145) message] The s ystem which generated this result transmitted reference range : 10*3/?L. The reference range was not used to interpret this result as normal/abnormal . GRAN MAT (NEUT) % 44.6 % (test code = 770-8) IMM GRAN % (test code 0.30 % = 4948773963) LYMPH % (test code = 44.9 % 736-9) MONO % (test code = 6.4 % 5905-5) EOS % (test code = 3.1 % 713-8) BASO % (test code = 0.7 % 706-2) GRAN MAT x10^3(ANC) 3.41 10*3/uL 1.88-7.09 (test code = 4217201740) IMM GRAN x10^3 (test 0.00-0.06 code = 7269229292) LYMPH x10^3 (test code 3.43 10*3/uL 1.32-3.29 H = 731-0) MONO x10^3 (test code 0.49 10*3/uL 0.33-0.92 = 742-7) EOS x10^3 (test code = 0.24 10*3/uL 0.03-0.39 711-2) BASO x10^3 (test code 0.05 10*3/uL 0.01-0.07 = 704-7) Lab Interpretation Abnormal (test code = 01675-8) [facility] [id number] 07:08:04 Test Item Value Reference Range Interpretation Comments TROPONIN I (test code = 0.001 ng/mL <=0.034 1617178818) LAKESHIA (test code = LAKESHIA) Reference (Normal) [...] biotin. Lab Interpretation Normal (test code = 74689-7) [facility]2022-[facility]-28 03:05:17 Test Item Value Reference Range Interpretation Comments POCT GLU (test code = 8001101324) 121 mg/dL 70-110 H Lab Interpretation (test code = Abnormal 87423-2) [facility] [id number] 23:50:40 Test Item Value Reference Range Interpretation Comments TROPONIN I (test code = 0.000 ng/mL <=0.034 3946300796) LAKESHIA (test code = LAKESHIA) Reference (Normal) [...] biotin. Lab Interpretation Normal (test code = 85388-0) [facility]N-TERMINAL [id number] 23:47:38 Test Item Value Reference Range Interpretation Comments NT-proBNP (test code = 1340 pg/mL <=125 H 2176071935) LAKESHIA (test code = LAKESHIA) Biotin has been reported to cause a negative bias, interpret results relative to patient's use of biotin. Lab Interpretation (test Abnormal code = 64954-9) [facility]IUM2023-[facility]-08 23:40:37 Test Item Value Reference Range Interpretation Comments MAGNESIUM (test code = 8461347699) 1.8 mg/dL 1.7-2.4 Lab Interpretation (test code = Normal 01884-4) [facility]. METABOLIC PANEL (96113)2022-07-27 23:40:16 Test Item Value Reference Range Interpretation Comments NA (test code = 137 mmol/L 135-145 6947517617) K (test code = 4.5 mmol/L 3.5-5.0 2011353150) CL (test code = 101 mmol/L 98-108 7497181626) CO2 TOTAL (test code = 26 mmol/L 23-31 6646611803) AGAP (test code = 10 2-16 0817243409) BUN (test code = 17 mg/dL 7-23 0648155284) GLUCOSE (test code = 131 mg/dL 70-110 H 0136108082) CREATININE (test code = 0.72 mg/dL 0.50-1.04 5158142854) TOTAL BILI (test code = 0.6 mg/dL 0.1-1.6 9871028460) CALCIUM (test code = 9.5 mg/dL 8.6-10.6 3379795554) T PROTEIN (test code = 7.5 g/dL 6.3-8.2 5379788612) ALBUMIN (test code = 4.1 g/dL 3.5-5.0 0322634019) ALK PHOS (test code = 93 U/L 34-122 8993241545) ALTv (test code = 30 U/L 5-35 1742-6) AST(SGOT) (test code = 26 U/L 13-40 6781483201) eGFR (test code = 88.8 mL/min/1.73m2 3963859056) LAKESHIA (test code = LAKESHIA) Association of [...] tests). Lab Interpretation Abnormal (test code = 81706-1) [facility]20[facility] 23:39:56 Test Item Value Reference Range Interpretation Comments LIPASE (test code = 0025136867) 156 U/L 0-220 Lab Interpretation (test code = Normal 13910-8) [facility]landACTIVATED PARTIAL THRMPLAS [id number] 23:35:20 Test Item Value Reference Range Interpretation Comments APTT Patient (test 24 See_Comment [Automat ed code = 3173-2) message] The system which generated this result transmitted reference range : 23 - 38 Seconds . The reference range was not used to interpr et this result as normal/abnormal . LAKESHIA (test code = LAKESHIA) [facility] patient population mean normal value for aPTT is 30 seconds. Lab Interpretation Normal (test code = 43416-9) [facility]landProthrombin Time / [id number] 23:33:18 Test Item Value Reference Range Interpretation [...] tions. Lab Interpretation (test Normal code = 86065-4) [facility] WITH [id number] 23:26:17 Test Item Value Reference Range Interpretation Comments WBC (test code = 8.05 See_Comment [Automated 3974-2) message] The sy stem which generated this result transmitted reference range : 4.30 - 11.10 10*3/?L. The reference range was not used to interpret this result as normal/abnormal . RBC (test code = 5.65 See_Comment H [Automated 439-8) message] The sy stem which generated this [...] RDW-SD (test code = 42.5 fL 39.0-49.9 21064-5) RDW-CV (test code = 13.9 % 12.0-15.5 788-0) PLT (test code = 306 See_Comment [Automated 777-3) message] The sy stem which generated this result transmitted reference range : 166 - 358 10*3/ ?L. The reference r alee was not used to interpret this result as normal/abnormal . MPV (test code = 9.7 fL 9.5-12.9 82449-1) NRBC/100 WBC (test 0.0 See_Comment [Automat ed code = 6478917434) message] The system which generated this result transmitted reference range : 0.0 - 10.0 /100 WBCs. The refer ence range was not u sed to interpret th is result as normal/abnormal . NRBC x10^3 (test code See_Comment [Auto mated = 4631002176) message] The s ystem which generated this result transmitted reference range : 10*3/?L. The reference range was not used to interpret this result as normal/abnormal . GRAN MAT (NEUT) % 57.8 % (test code = 770-8) IMM GRAN % (test code 0.10 % = 8188475888) LYMPH % (test code = 33.0 % 736-9) MONO % (test code = 5.7 % 5905-5) EOS % (test code = 2.7 % 713-8) BASO % (test code = 0.7 % 706-2) GRAN MAT x10^3(ANC) 4.64 10*3/uL 1.88-7.09 (test code = 6929831645) IMM GRAN x10^3 (test 0.00-0.06 code = 5220381324) LYMPH x10^3 (test code 2.66 10*3/uL 1.32-3.29 = 731-0) MONO x10^3 (test code 0.46 10*3/uL 0.33-0.92 = 742-7) EOS x10^3 (test code = 0.22 10*3/uL 0.03-0.39 711-2) BASO x10^3 (test code 0.06 10*3/uL 0.01-0.07 = 704-7) Lab Interpretation Abnormal (test code = 91764-0) [facility]landD-BJTJC0737-66-00 00:46:32 Test Item Value Reference Interpretation Comments Range D-DIMER (test code = See_Comment H [Autom ated 1679936065) message] The system which generated this result [...] diagnosis. Lab Interpretation Abnormal (test code = 36716-0) [facility]landTroponin [id number] 00:45:10 Test Item Value Reference Interpretation Comments Range TROPONIN I (test 0.002 ng/mL See_Comment [Automated code = 6516960974) message] The system which generated this result [...] biotin. Lab Interpretation Normal (test code = 70274-9) [facility]landN-TERMINAL [id number] 00:41:51 Test Item Value Reference Range Interpretation Comments NT-proBNP (test code 86 pg/mL See_Comment [Autom ated = 1559301550) message] The system which generated this result transmitted reference range : <=125. The reference range was not used to interpret this result as normal/abnormal . LAKESHIA (test code = LAKESHIA) Biotin has been reported to cause a negative bias, interpret results relative to patient's use of biotin. Lab Interpretation Normal (test code = 25149-8) [facility]landBapsychiatric Metabolic Panel (NA, K, CL, CO2, GLUCOSE, BUN, CREATININE, [place])2022-03-27 00:36:51 Test Item Value Reference Range Interpretation Comments NA (test code = 137 mmol/L 135-145 3413125061) K (test code = 4.2 mmol/L 3.5-5.0 9037312344) CL (test code = 103 mmol/L 98-108 9705472407) CO2 TOTAL (test code = 24 mmol/L 23-31 0886985317) AGAP (test code = 2-16 3124174217) BUN (test code = 9 mg/dL 7-23 1615755897) GLUCOSE (test code = 187 mg/dL 70-110 H 4764893174) CREATININE (test code = 0.50 mg/dL 0.50-1.04 1593225747) CALCIUM (test code = 8.4 mg/dL 8.6-10.6 L 4529697424) eGFR (test code = mL/min/1.73m2 1019488596) LAKESHIA (test code = LAKESHIA) Association of [...] tests). Lab Interpretation Abnormal (test code = 04835-7) [facility]landHepatic Function Panel (ALB, T.PRO, BILI T, BU/BC, ALT, AST, ALK PHOS)2022-03-27 00:36:51 Test Item Value Reference Range Interpretation Comments TOTAL BILI (test code = 8671847508) 0.6 mg/dL 0.1-1.1 BILI UNCON (test code = 2695958899) 0.4 mg/dL 0.1-1.1 BILI CONJ (test code = 7818530087) 0.0 mg/dL 0.0-0.3 T PROTEIN (test code = 5448536284) 7.0 g/dL 6.3-8.2 ALBUMIN (test code = 8828342736) 3.8 g/dL 3.5-5.0 ALK PHOS (test code = 0670939717) 139 U/L 34-122 H ALTv (test code = 1742-6) 29 U/L 5-35 AST(SGOT) (test code = 6276716058) 32 U/L 13-40 Lab Interpretation (test code = Abnormal 50693-7) [facility] MainlandLipase [id number] 00:36:51 Test Item Value Reference Range Interpretation Comments LIPASE (test code = 7769582479) 143 U/L 0-220 Lab Interpretation (test code = Normal 50371-6) [facility]landCBC with [id number] 00:17:06 Test Item Value Reference Range Interpretation Comments WBC (test code = See_Comment [Automated message] 6690-2) The system LEAFER generated this result transmitted ref erence range: 4.30 - 1 1.10 10*3/?L. The re ference range was not u sed to interpret this result as normal/abnor mal. RBC (test code = See_Comment [Automated message] 789-8) The system LEAFER generated this result transmitted ref erence range: [...] RDW-SD (test code 39.8 fL 39.0-49.9 = 75983-2) RDW-CV (test code 12.9 % 12.0-15.5 = 788-0) PLT (test code = See_Comment [Automated message] 777-3) The system Basic6 h generated this result transmitted ref erence range: 166 - 35 8 10*3/?L. The re ference range was not u sed to interpret this result as normal/abnor mal. MPV (test code = 10.1 fL 9.5-12.9 66159-6) NRBC/100 WBC (test See_Comment [Automat ed message] code = 8870472361) The syste m which generated this result transmitted ref erence range: 0.0 - 10 .0 /100 WBCs. The refer ence range was not u sed to interpret this result as normal/abnor mal. NRBC x10^3 (test See_Comment [Automated message] code = 2116057265) The syste m which generated this result transmitted ref erence range: 10*3/?L. The reference range was not used to interpr et this result as normal/abnormal . GRAN MAT (NEUT) % 61.7 % (test code = 770-8) IMM GRAN % (test 0.30 % code = 9523669962) LYMPH % (test code 28.5 % = 736-9) MONO % (test code 5.7 % = 5905-5) EOS % (test code = 3.2 % 713-8) BASO % (test code 0.6 % = 706-2) GRAN MAT 3.80 10*3/uL 1.88-7.09 x10^3(ANC) (test code = 7511329069) IMM GRAN x10^3 0.00-0.06 (test code = 1929308385) LYMPH x10^3 (test 1.76 10*3/uL 1.32-3.29 code = 731-0) MONO x10^3 (test 0.35 10*3/uL 0.33-0.92 code = 742-7) EOS x10^3 (test 0.20 10*3/uL 0.03-0.39 code = 711-2) BASO x10^3 (test 0.04 10*3/uL 0.01-0.07 code = 704-7) [facility] [id number] 00:14:00 Test Item Value Reference Range Interpretation Comments POCT PREG (test code = 1605) negative On board controls acceptable with present C Line (test code = 3574) POCT PREG LOT # (test code = 3575) [id number] POCT PREG TEST DATE (test 06/20/2023 code = 3576) Lab Interpretation (test code = Normal 66323-2) [facility] GLUCOSE (AUTOMATED)2021-10-05 17:06:39 Test Item Value Reference Range Interpretation Comments POCT GLU (test code = 8020318364) 243 mg/dL 70-110 H Lab Interpretation (test code = Abnormal 50063-6) [facility] GLUCOSE (AUTOMATED)2021-10-05 13:23:18 Test Item Value Reference Range Interpretation Comments POCT GLU (test code = 1375830027) 231 mg/dL 70-110 H Lab Interpretation (test code = Abnormal 77293-0) [facility] GLUCOSE (AUTOMATED)2021-10-05 13:23:18 Test Item Value Reference Range Interpretation Comments POCT GLU (test code = 3912510303) 237 mg/dL 70-110 H Lab Interpretation (test code = Abnormal 95777-3) [facility] GLUCOSE (AUTOMATED)2021-10-05 09:26:35 Test Item Value Reference Range Interpretation Comments POCT GLU (test code = 5950042543) 259 mg/dL 70-110 H Lab Interpretation (test code = Abnormal 07535-9) [facility] GLUCOSE (AUTOMATED)2021-10-05 05:31:31 Test Item Value Reference Range Interpretation Comments POCT GLU (test code = 0465259750) 307 mg/dL 70-110 H Lab Interpretation (test code = Abnormal 17596-7) [facility] GLUCOSE (AUTOMATED)2021-10-04 22:05:01 Test Item Value Reference Range Interpretation Comments POCT GLU (test code = 2841021655) 315 mg/dL 70-110 H Lab Interpretation (test code = Abnormal 51481-0) [facility] GLUCOSE (AUTOMATED)2021-10-04 17:06:43 Test Item Value Reference Range Interpretation Comments POCT GLU (test code = 8492110373) 294 mg/dL 70-110 H Lab Interpretation (test code = Abnormal 78868-2) [facility]2022-07-16 16:21:11 Test Item Value Reference Range Interpretation Comments MAGNESIUM (test code = 0264908047) 1.9 mg/dL 1.7-2.4 Lab Interpretation (test code = Normal 91430-7) [facility] METABOLIC PANEL (NA, K, CL, CO2, GLUCOSE, BUN, CREATININE, CA)2021-10-04 16:20:50 Test Item Value Reference Range Interpretation Comments NA (test code = 133 mmol/L 135-145 L 2406077065) K (test code = 3.4 mmol/L 3.5-5 L 4091807437) CL (test code = 95 mmol/L 98-108 L 5483470115) CO2 TOTAL (test code = 29 mmol/L 23-31 4238909554) AGAP (test code = 2-16 4281390224) BUN (test code = 13 mg/dL 7-23 8704507188) GLUCOSE (test code = 266 mg/dL 70-110 H 7506430567) CREATININE (test code = 0.64 mg/dL 0.5-1.04 9041080826) CALCIUM (test code = 8.6 mg/dL 8.6-10.6 8424169316) eGFR (test code = mL/min/1.73m2 2038416987) LAKESHIA (test code = LAKESHIA) Association of [...] tests). Lab Interpretation Abnormal (test code = 65687-3) [facility]PHOSPHORUS2022-[facility]-16 16:20:30 Test Item Value Reference Range Interpretation Comments PHOSPHORUS (test code = 8080740229) 2.6 mg/dL 2.5-5 Lab Interpretation (test code = Normal 01277-4) [facility] GLUCOSE (AUTOMATED)2021-10-04 13:00:44 Test Item Value Reference Range Interpretation Comments POCT GLU (test code = 9919747481) 233 mg/dL 70-110 H Lab Interpretation (test code = Abnormal 69293-0) [facility] GLUCOSE (AUTOMATED)2021-10-04 08:50:35 Test Item Value Reference Range Interpretation Comments POCT GLU (test code = 7174154240) 247 mg/dL 70-110 H Lab Interpretation (test code = Abnormal 53552-0) [facility] GLUCOSE (AUTOMATED)2021-10-04 04:51:58 Test Item Value Reference Range Interpretation Comments POCT GLU (test code = 1162996393) 330 mg/dL 70-110 H Lab Interpretation (test code = Abnormal 68606-2) [facility] GLUCOSE (AUTOMATED)2021-10-04 01:57:26 Test Item Value Reference Range Interpretation Comments POCT GLU (test code = 8576048086) 332 mg/dL 70-110 H Lab Interpretation (test code = Abnormal 22240-5) [facility] GLUCOSE (AUTOMATED)2021-10-04 00:39:09 Test Item Value Reference Range Interpretation Comments POCT GLU (test code = 9065105996) 371 mg/dL 70-110 H Lab Interpretation (test code = Abnormal 50846-6) [facility] GLUCOSE (AUTOMATED)2021-10-03 22:00:26 Test Item Value Reference Range Interpretation Comments POCT GLU (test code = 4718583292) 349 mg/dL 70-110 H Lab Interpretation (test code = Abnormal 94909-8) [facility] GLUCOSE (AUTOMATED)2021-10-03 22:00:26 Test Item Value Reference Range Interpretation Comments POCT GLU (test code = 0333575326) 301 mg/dL 70-110 H Lab Interpretation (test code = Abnormal 92821-0) [facility]landTransthoracic echo (TTE)2021-10-03 21:43:16 Test Item Value Reference Range Interpretation Comments Height (test code = in 8638863753) Weight (test code = lbs 1349021703) Systolic BP (test code = mmHg 1458868136) Diastolic BP (test code mmHg = 2089897622) Heart Rate (test code = bpm 1601619092) BSA (test code = 3.0 m2 3324230113) LVOT diameter (test code 2.17 cm = 5129388521) Ao root annulus (test 3.2 cm code = 2959151529) Ao root diam (test code 3.20 cm = 4743522133) Aortic root (test code = 3.2 cm 8430738482) LA size (test code = 4.7 cm 7557179271) ACS (test code = 2.70 cm 7932684864) PV PEAK VELOCITY (test 73.7 cm/s code = 9845471888) PV peak gradient (test mmHg code = 2270616982) MV E-F slope (test code 40.90 cm/s = 4370291691) MV Peak E Chandan (test code 70.8 cm/s = 3380022151) MV Peak A Chandan (test code 59.7 cm/s = 0377018264) E/A ratio (test code = ratio 8844836519) MV valve area p 1/2 3.50 cm2 method (test code = 8980006684) MV dec slope (test code 333.50 cm/s2 = 2407530705) MV P1/2t max chandan (test 71.80 cm/s code = 1862052485) MR max PG (test code = 6.90 mm[Hg] 3719000354) MR max chandan (test code = 131.70 cm/s 5334588142) Mr max chandan (test code = 131.7 m/s 5426699326) LVOT stroke volume (test 73.00 cm3 code = 1407363045) LVOT peak chandan (test code 116.9 cm/s = 4953646798) LVOT mn grad (test code mmHg = 3201366728) AV LVOT peak gradient mmHg (test code = 6884733800) LVOT peak VTI (test code 19.7 cm = 3902504491) LV V1 mean (test code = 72.40 cm/s 4677919496) Aortic valve mean 101.2 cm/s velocity (test code = 6010726109) Ao peak chandan (test code = 160.2 cm/s 1466305579) Ao VTI (test code = 28.9 cm 3246399969) AV area by cont VTI 2.5 cm2 (test code = 2265440455) AV area peak chandan (test 2.7 cm2 code = 0990764590) Ao max PG (test code = 10.30 mm[Hg] 3750715466) AV peak gradient (test mmHg code = 3819800228) AV valve area (test code 2.50 cm2 = 0788259509) AV mean gradient (test mmHg code = 6336437041) LVIDD (test code = 4.70 cm 8838959477) IVS (test code = 1.21 cm 8514313977) Interventricular Septum 1.21 cm Diastolic Thickness by 2D (test code = 0695142) LVPWD (test code = 1.22 cm 1622107781) PW (test code = 1.22 cm 0.6-1.0 2605009505) EF(Teich) (test code = 58.60 % 2514544804) LVIDS (test code = 3.20 cm 6436182615) FS (test code = 31 % 5519209759) EF - 2D (test code = 58.60 % 72160344) Radiology Study observation (narrative) (test code = 00139-4) LAKESHIA (test code = LAKESHIA) Formatting of [...] mL of Lumason ultrasound enhancing agent used. [facility]landOSMOLALITY, SERUM OR [id number] 17:12:23 Test Item Value Reference Range Interpretation Comments OSMOLALITY (test code = See_Comment [Au tomated message] 2692-2) The system LEAFER generated this result transmitted ref erence range: 278 - 30 5 mOsm/kg. The re ference range was not u sed to interpret this result as normal/abnor mal. Lab Interpretation (test Normal code = 81289-6) [facility]landPROCALCITONIN2022-07-15 16:45:07 Test Item Value Reference Interpretation Comments Range Procalcitonin (test 0.18 ng/mL See_Comment H [Automa kenroy code = 8885889214) message] The system which generated this result [...] lung abscess/empyema. For further information please refer to:[email or web address] Lab Interpretation Abnormal (test code = 92217-3) [facility] MainlandOSMOLALITY, SERUM OR [id number] 14:29:23 Test Item Value Reference Range Interpretation Comments OSMOLALITY (test code = See_Comment [Au tomated message] 2692-2) The system LEAFER generated this result transmitted ref erence range: 278 - 30 5 mOsm/kg. The re ference range was not u sed to interpret this result as normal/abnor mal. Lab Interpretation (test Normal code = 19511-0) [facility] MainlandLOW-DENSITY LIPOPROTEIN, [id number] 14:11:43 Test Item Value Reference Range Interpretation Comments dLDL Chol (test code = 185 mg/dL See_Comment H [Aut omated message] 46860-0) The system LEAFER generated this result transmit kenroy reference range : <=130. The refe rence range was not u sed to interpret th is result as normal/abnormal . Lab Interpretation (test Abnormal code = 11540-5) [facility]landTROPONIN [id number] 13:46:40 Test Item Value Reference Interpretation Comments Range TROPONIN I (test 0.003 ng/mL See_Comment [Automated code = 8733391598) message] The system which generated this result [...] biotin. Lab Interpretation Normal (test code = 21993-7) [facility]landPO[facility] GLUCOSE (AUTOMATED)2021-10-03 12:51:20 Test Item Value Reference Range Interpretation Comments POCT GLU (test code = 2880635683) 348 mg/dL 70-110 H Lab Interpretation (test code = Abnormal 96279-2) [facility]landVITAMIN D, [id number] 12:30:15 Test Item Value Reference Range Interpretation Comments VIT D 25OH (test code = 16 ng/mL 25-80 L 01858-2) LAKESHIA (test code = LAKESHIA) Deficiency: <20 ng/mLInsufficiency: 20-24 ng/mLOptimal: 25-80 ng/mL Lab Interpretation (test Abnormal code = 14950-9) [facility] MainlandURIC [id number] 12:07:35 Test Item Value Reference Range Interpretation Comments URIC ACID (test code = 2834464460) 6.5 mg/dL 2.9-6 H Lab Interpretation (test code = Abnormal 75293-4) [facility] MainlandCREATINE [id number] 12:07:14 Test Item Value Reference Range Interpretation Comments CK (test code = 7251753328) 27 U/L 33-194 L Lab Interpretation (test code = Abnormal 74378-3) [facility]landTROPONIN [id number] 11:44:30 Test Item Value Reference Interpretation Comments Range TROPONIN I (test 0.004 ng/mL See_Comment [Automated code = 2312874484) message] The system which generated this result [...] biotin. Lab Interpretation Normal (test code = 58172-5) [facility]landN-TERMINAL [id number] 11:41:08 Test Item Value Reference Range Interpretation Comments NT-proBNP (test code 33 pg/mL See_Comment [Autom ated = 4562121939) message] The system which generated this result transmitted reference range : <=125. The reference range was not used to interpret this result as normal/abnormal . LAKESHIA (test code = LAKESHIA) Biotin has been reported to cause a negative bias, interpret results relative to patient's use of biotin. Lab Interpretation Normal (test code = 22311-1) [facility] MainlandCOMP. METABOLIC PANEL (27188)2021-10-03 11:36:54 Test Item Value Reference Range Interpretation Comments NA (test code = 131 mmol/L 135-145 L 3370785864) K (test code = 2.8 mmol/L 3.5-5 LL 7371661571) CL (test code = 90 mmol/L 98-108 L 9165671013) CO2 TOTAL (test code = 30 mmol/L 23-31 5741083326) AGAP (test code = 2-16 7362670926) BUN (test code = 18 mg/dL 7-23 8380185856) GLUCOSE (test code = 358 mg/dL 70-110 H 9109599051) CREATININE (test code = 0.63 mg/dL 0.5-1.04 8827303382) TOTAL BILI (test code = 0.4 mg/dL 0.1-1.8 5237553982) CALCIUM (test code = 9.0 mg/dL 8.6-10.6 6444698804) T PROTEIN (test code = 7.4 g/dL 6.3-8.2 9244277181) ALBUMIN (test code = 4.0 g/dL 3.5-5 8858177806) ALK PHOS (test code = 168 U/L 34-122 H 0177210916) ALTv (test code = 47 U/L 5-35 H 1742-6) AST(SGOT) (test code = 45 U/L 13-40 H 2316797976) eGFR (test code = mL/min/1.73m2 9506186272) LAKESHIA (test code = LAKESHIA) Association of [...] tests). Lab Interpretation Abnormal (test code = 69045-9) [facility] Test Item Value Reference Range Interpretation Comments MAGNESIUM (test code = 4348009344) 2.0 mg/dL 1.7-2.4 Lab Interpretation (test code = Normal 97207-4) [facility] 11:32:51 Test Item Value Reference Range Interpretation Comments PHOSPHORUS (test code = 0679968744) 4.4 mg/dL 2.5-5 Lab Interpretation (test code = Normal 85484-6) [facility]2021-[facility]-03 10:29:09 Test Item Value Reference Range Interpretation Comments POCT GLU (test code = 0625784166) 361 mg/dL 70-110 H Lab Interpretation (test code = Abnormal 53810-0) [facility] WITH [id number] 10:26:42 Test Item Value Reference Range Interpretation Comments WBC (test code = See_Comment [Automated 3890-2) message] The sy stem which generated this result transmitted reference range : 4.30 - 11.10 10*3/?L. The reference range was not used to interpret this result as normal/abnormal . RBC (test code = See_Comment [Automated 419-8) message] The sy stem which generated this [...] (test code = 37.2 fL 39-49.9 L 19954-9) RDW-CV (test code = 13.2 % 12-15.5 788-0) PLT (test code = See_Comment [Automated 777-3) message] The sy stem which generated this result transmitted reference range : 166 - 358 10*3/ ?L. The reference r alee was not used to interpret this result as normal/abnormal . MPV (test code = 10.5 fL 9.5-12.9 16037-5) NRBC/100 WBC (test See_Comment [Automat ed code = 8897067364) message] The system which generated this result transmitted reference range : 0.0 - 10.0 /100 WBCs. The refer ence range was not u sed to interpret th is result as normal/abnormal . NRBC x10^3 (test code See_Comment [Auto mated = 6431948975) message] The s ystem which generated this result transmitted reference range : 10*3/?L. The reference range was not used to interpret this result as normal/abnormal . GRAN MAT (NEUT) % 50.8 % (test code = 770-8) IMM GRAN % (test code 0.20 % = 4589844540) LYMPH % (test code = 37.9 % 736-9) MONO % (test code = 7.9 % 5905-5) EOS % (test code = 2.7 % 713-8) BASO % (test code = 0.5 % 706-2) GRAN MAT x10^3(ANC) 2.85 10*3/uL 1.88-7.09 (test code = 1323039761) IMM GRAN x10^3 (test 0-0.06 code = 9826560039) LYMPH x10^3 (test code 2.12 10*3/uL 1.32-3.29 = 731-0) MONO x10^3 (test code 0.44 10*3/uL 0.33-0.92 = 742-7) EOS x10^3 (test code = 0.15 10*3/uL 0.03-0.39 711-2) BASO x10^3 (test code 0.03 10*3/uL 0.01-0.07 = 704-7) Lab Interpretation Abnormal (test code = 93799-3) [facility] B12, [id number] 08:40:31 Test Item Value Reference Range Interpretation Comments VIT B12 (test code = 468 pg/mL 240-930 6772395178) LAKESHIA (test code = LAKESHIA) Biotin has been reported to cause a positive bias, interpret results relative to patient's use of biotin. Lab Interpretation (test Normal code = 48241-0) [facility]2021-10-03 06:59:12 Test Item Value Reference Range Interpretation Comments POCT GLU (test code = 1626163343) 398 mg/dL 70-110 H Lab Interpretation (test code = Abnormal 06595-1) [facility]landSEDIMENTATION [id number] 04:12:50 Test Item Value Reference Range Interpretation Comments ESR (test code = See_Comment H [Automated message] 1650561745) The system LEAFER generated this result transmitted ref erence range: 0 - 20 m m/HR. The reference r alee was not used to interpret this result as normal/abnor mal. Lab Interpretation (test Abnormal code = 16466-3) [facility]landFERRITIN [id number] 03:21:45 Test Item Value Reference Range Interpretation Comments FERRITIN (test code = 12.0 ng/mL 6-137 9536884955) LAKESHIA (test code = LAKESHIA) Biotin has been reported to cause a negative bias, interpret results relative to patient's use of biotin. Lab Interpretation (test Normal code = 55924-5) [facility]landTHYROID STIMULATING [id number] 03:17:43 Test Item Value Reference Range Interpretation Comments TSH (test code = See_Comment [Automated message] 6127931892) The system LEAFER generated this result transmitted ref erence range: 0.45 - 4 .70 mIU/L. The refe rence range was not u sed to interpret this result as normal/abnor mal. Lab Interpretation (test Normal code = 58173-2) [facility]2021-10-03 03:12:31 Test Item Value Reference Range Interpretation Comments POCT GLU (test code = 9306545434) 419 mg/dL 70-110 H Lab Interpretation (test code = Abnormal 16652-8) [facility]landIRON [id number] 03:10:45 Test Item Value Reference Range Interpretation Comments IRON (test code = 3953218239) 55 ug/dL 50-160 TIBC (test code = 9612090891) 530 ug/dL 250-410 H % FE SAT (test code = 5924917077) 10 % 20-50 L Lab Interpretation (test code = Abnormal 80672-9) [facility]landTROPONIN [id number] 02:59:02 Test Item Value Reference Interpretation Comments Range TROPONIN I (test 0.002 ng/mL See_Comment [Automated code = 2119307466) message] The system which generated this result [...] biotin. Lab Interpretation Normal (test code = 02393-7) [facility]landLIPID PANEL (79575)(TOTAL CHOLESTEROL, TRIGLYCERIDES, HDL)2021-10-03 02:57:26 Test Item Value Reference Range Interpretation Comments CHOL (test code = 281 mg/dL 120-200 H 8709136839) HDL (test code = 29 mg/dL See_Comment L [Automated message] 3144101593) The system LEAFER generated this result transmitted ref erence range: >=50. Th e reference range was not used to int erpret this result as normal/abnormal . HDLC RATIO (test code = See_Comment H [Au tomated message] 2604595545) The system LEAFER generated this result transmitted ref erence range: <=4.5. T he reference range was not used to int erpret this result as normal/abnormal . TRIG (test code = 419 mg/dL 30-170 H 8653552012) LDL CHOL (test code = Unable to calculate 00009-2) LDL due to elev ated triglyceride le chandan greater than 40 0 mg/dL. VLDL (test code = 84 mg/dL 5-60 H 2853972815) Lab Interpretation Abnormal (test code = 64901-3) [facility]2022-[facility]-15 02:46:43 Test Item Value Reference Range Interpretation Comments MAGNESIUM (test code = 7352004582) 1.8 mg/dL 1.7-2.4 Lab Interpretation (test code = Normal 93508-7) [facility]2022-07-15 02:46:43 Test Item Value Reference Range Interpretation Comments PHOSPHORUS (test code = 1073837909) 4.6 mg/dL 2.5-5 Lab Interpretation (test code = Normal 23161-9) [facility]landURIC [id number] 02:46:23 Test Item Value Reference Range Interpretation Comments URIC ACID (test code = 0313193914) 5.7 mg/dL 2.9-6 Lab Interpretation (test code = Normal 01323-3) [facility]2021-10-03 00:06:33 Test Item Value Reference Range Interpretation Comments POCT GLU (test code = 7935437082) 435 mg/dL 70-110 H Lab Interpretation (test code = Abnormal 39312-0) [facility]landAC Panel 20 + Lactic [id number] 22:34:34 Test Item Value Reference Range Interpretation Comments PH (test code = 2) 7.35-7.45 PCO2 (test code = See_Comment [Automate d 9624617221) message] The sy stem which generated this result transmitted reference range : 35 - 45 mmHg. The reference range was not used to interpret this result as normal/abnormal . PO2 (test code = See_Comment L [Automated 6181716836) message] The sy stem which generated this result transmitted reference range : 80 - 100 mmHg. The reference range was not used to interpret this result as normal/abnormal . HCO3 (test code = See_Comment H [Automate d 3360209128) message] The sy stem which generated this result transmitted reference range : 22 - 26 mEq/L. The reference range was not used to interpret this result as normal/abnormal . BE (test code = See_Comment [Automated 2369569489) message] The sy stem which generated this result transmitted reference range : -3.0 - 3.0 mEq/ L. The reference r alee was not used to interpret this result as normal/abnormal . THB (test code = 15.2 g/dL 12-16 5322122448) %O2HB (test code = 95.3 % 94-99 8189193899) %COHB ART (test code = 0.5 % 0-1.5 5237077071) %METHB ART (test code = 0.0 % 0.4-1.5 L 0789025635) VOL%O2 ART (test code = 20.4 % 15-23 0919258811) NA (test code = 129 mmol/L 135-145 L 6117202770) K+ (test code = 2.7 mmol/L 3.5-5 LL 6670399944) AC CA IONZ (test code = 4.80 mg/dL 4.5-5.3 2187962523) GLUCOSE (test code = 532 mg/dL 70-110 HH 9867399451) LACTIC ACID (test code 3.80 mmol/L 0.5-2.2 H = 0161737888) Lab Interpretation Abnormal (test code = 86492-0) [facility]2022-01-23 06:25:50 Test Item Value Reference Range Interpretation Comments MAGNESIUM (test code = 9393543951) 1.3 mg/dL 1.7-2.4 L Lab Interpretation (test code = Abnormal 11019-4) [facility]landCOMP. METABOLIC PANEL (66465)2021-04-13 06:25:30 Test Item Value Reference Range Interpretation Comments NA (test code = 131 mmol/L 135-145 L 6545800003) K (test code = 4.5 mmol/L 3.5-5.0 1863088377) CL (test code = 96 mmol/L 98-108 L 5959332130) CO2 TOTAL (test code = 30 mmol/L 23-31 1554019566) AGAP (test code = 2-16 6092588798) BUN (test code = 11 mg/dL 7-23 7268657113) GLUCOSE (test code = 369 mg/dL 70-110 H 4249944344) CREATININE (test code = 0.53 mg/dL 0.50-1.04 3947060172) TOTAL BILI (test code = 0.4 mg/dL 0.1-1.0 2707641651) CALCIUM (test code = 9.4 mg/dL 8.6-10.6 5888682201) T PROTEIN (test code = 7.1 g/dL 6.3-8.2 4070487587) ALBUMIN (test code = 4.0 g/dL 3.5-5.0 1829388518) ALK PHOS (test code = 208 U/L 34-122 H 2232015786) ALTv (test code = 88 U/L 5-35 H 1742-6) AST(SGOT) (test code = 119 U/L 13-40 H 8909433680) eGFR (test code = mL/min/1.73m2 5999427308) LAKESHIA (test code = LAKESHIA) Association of [...] tests). Lab Interpretation Abnormal (test code = 90116-3) [facility]landHENOK [id number] 06:24:06 Test Item Value Reference Interpretation Comments Range TROPONIN I (test 0.008 ng/mL See_Comment [Automated code = 5753909429) message] The system which generated this result [...] biotin. Lab Interpretation Normal (test code = 05588-2) [facility]landN-TERMINAL [id number] 06:21:06 Test Item Value Reference Range Interpretation Comments NT-proBNP (test code 114 pg/mL See_Comment [Autom ated = 0871161767) message] The system which generated this result transmitted reference range : <=125. The reference range was not used to interpret this result as normal/abnormal . LAKESHIA (test code = LAKESHIA) Biotin has been reported to cause a negative bias, interpret results relative to patient's use of biotin. Lab Interpretation Normal (test code = 53835-3) [facility]landD-[id number] 05:56:24 Test Item Value Reference Interpretation Comments Range D-DIMER (test code = See_Comment H [Autom ated 9139899551) message] The system which generated this result [...] diagnosis. Lab Interpretation Abnormal (test code = 53402-1) [facility] WITH [id number] 05:45:28 Test Item Value Reference Range Interpretation [...] RDW-SD (test code = 39.9 fL 39.0-49.9 99645-6) RDW-CV (test code = 13.5 % 12.0-15.5 788-0) PLT (test code = See_Comment [Automated 777-3) message] The sy stem which generated this result transmitted reference range : 166 - 358 10*3/ ?L. The reference r alee was not used to interpret this result as normal/abnormal . MPV (test code = 10.1 fL 9.5-12.9 18695-0) NRBC/100 WBC (test See_Comment [Automat ed code = 8409387630) message] The system which generated this result transmitted reference range : 0.0 - 10.0 /100 WBCs. The refer ence range was not u sed to interpret th is result as normal/abnormal . NRBC x10^3 (test code <0.01 See_Comment [Auto mated = 1546908117) message] The s ystem which generated this result transmitted reference range : 10*3/?L. The reference range was not used to interpret this result as normal/abnormal . GRAN MAT (NEUT) % 74.6 % (test code = 770-8) IMM GRAN % (test code 0.30 % = 2954366807) LYMPH % (test code = 13.3 % 736-9) MONO % (test code = 8.6 % 5905-5) EOS % (test code = 2.3 % 713-8) BASO % (test code = 0.9 % 706-2) GRAN MAT x10^3(ANC) 2.59 10*3/uL 1.88-7.09 (test code = 1111045555) IMM GRAN x10^3 (test <0.03 0.00-0.06 code = 1975501279) LYMPH x10^3 (test code 0.46 10*3/uL 1.32-3.29 L = 731-0) MONO x10^3 (test code 0.30 10*3/uL 0.33-0.92 L = 742-7) EOS x10^3 (test code = 0.08 10*3/uL 0.03-0.39 711-2) BASO x10^3 (test code 0.03 10*3/uL 0.01-0.07 = 704-7) Lab Interpretation Abnormal (test code = 43137-3) [facility]PO[facility] [id number] 00:25:00 Test Item Value Reference Range Interpretation Comments POCT PREG (test code = 1605) negative On board controls acceptable with yes C Line (test code = 3574) POCT PREG LOT # (test code = 3575) [id number] POCT PREG TEST DATE (test 04/21/2022 code = 3576) Lab Interpretation (test code = Normal 25237-9) [facility]landTHYROID STIMULATING [id number] 00:08:28 Test Item Value Reference Range Interpretation Comments TSH (test code = See_Comment [Automated message] 2965011745) The system LEAFER generated this result transmitted ref erence range: 0.45 - 4 .70 mIU/L. The refe rence range was not u sed to interpret this result as normal/abnor mal. Lab Interpretation (test Normal code = 35379-7) [facility]landTROPONIN [id number] 23:50:23 Test Item Value Reference Interpretation Comments Range TROPONIN I (test 0.004 ng/mL See_Comment [Automated code = 1030301464) message] The system which generated this result [...] biotin. Lab Interpretation Normal (test code = 45892-6) [facility]landACTIVATED PARTIAL THRMPLAS [id number] 23:49:07 Test Item Value Reference Range Interpretation Comments APTT Patient (test See_Comment [Automat ed code = 3173-2) message] The system which generated this result transmitted reference range : 23 - 38 Seconds . The reference range was not used to interpr et this result as normal/abnormal . LAKESHIA (test code = LAKESHIA) The [facility] patient population mean normal value for aPTT is 30 seconds. Lab Interpretation Normal (test code = 46777-3) [facility]landPROTHROMBIN TIME / [id number] 23:47:06 Test Item Value Reference Range Interpretation [...] tions. Lab Interpretation (test Normal code = 63089-9) [facility]landCOM. METABOLIC PANEL (54153)2021-03-03 23:47:05 Test Item Value Reference Range Interpretation Comments NA (test code = 130 mmol/L 135-145 L 3437062985) K (test code = 5.1 mmol/L 3.5-5.0 H 9491091217) CL (test code = 94 mmol/L 98-108 L 4774528274) CO2 TOTAL (test code = 26 mmol/L 23-31 3516580499) AGAP (test code = 2-16 6577409436) BUN (test code = 17 mg/dL 7-23 2507288839) GLUCOSE (test code = 499 mg/dL 70-110 HH 3892705053) CREATININE (test code = 0.67 mg/dL 0.50-1.04 5403723692) TOTAL BILI (test code = 0.7 mg/dL 0.1-1.9 5797323843) CALCIUM (test code = 9.8 mg/dL 8.6-10.6 3765883397) T PROTEIN (test code = 7.5 g/dL 6.3-8.2 6867657455) ALBUMIN (test code = 4.2 g/dL 3.5-5.0 0651179182) ALK PHOS (test code = 195 U/L 34-122 H 0894577733) ALTv (test code = 63 U/L 5-35 H 1742-6) AST(SGOT) (test code = 60 U/L 13-40 H 8024604256) eGFR (test code = mL/min/1.73m2 2933538357) LAKESHIA (test code = LAKESHIA) Association of [...] tests). Lab Interpretation Abnormal (test code = 60721-5) [facility]land[facility]-TERMINAL [id number] 23:47:05 Test Item Value Reference Range Interpretation Comments NT-proBNP (test code 432 pg/mL See_Comment H [Autom ated = 3494586084) message] The system which generated this result transmitted reference range : <=125. The reference range was not used to interpret this result as normal/abnormal . LAKESHIA (test code = LAKESHIA) Biotin has been reported to cause a negative bias, interpret results relative to patient's use of biotin. Lab Interpretation Abnormal (test code = 60523-4) [facility]MAGNESIUM2021-12-13 23:38:25 Test Item Value Reference Range Interpretation Comments MAGNESIUM (test code = 5593427553) 1.4 mg/dL 1.7-2.4 L Lab Interpretation (test code = Abnormal 46251-8) [facility] WITH [id number] 23:24:39 Test Item Value Reference Range Interpretation Comments WBC (test code = See_Comment [Automated message] 6690-2) The system LEAFER generated this result transmitted ref erence range: 4.30 - 1 1.10 10*3/?L. The re ference range was not u sed to interpret this result as normal/abnor mal. RBC (test code = See_Comment [Automated message] 789-8) The system LEAFER generated this result transmitted ref erence range: [...] RDW-SD (test code 39.3 fL 39.0-49.9 = 70859-7) RDW-CV (test code 13.0 % 12.0-15.5 = 788-0) PLT (test code = See_Comment [Automated message] 777-3) The system LEAFER generated this result transmitted ref erence range: 166 - 35 8 10*3/?L. The re ference range was not u sed to interpret this result as normal/abnor mal. MPV (test code = 10.4 fL 9.5-12.9 88731-4) NRBC/100 WBC (test See_Comment [Automat ed message] code = 3216047202) The syste m which generated this result transmitted ref erence range: 0.0 - 10 .0 /100 WBCs. The refer ence range was not u sed to interpret this result as normal/abnor mal. NRBC x10^3 (test <0.01 See_Comment [Automated message] code = 5150681333) The syste m which generated this result transmitted ref erence range: 10*3/?L. The reference range was not used to interpr et this result as normal/abnormal . GRAN MAT (NEUT) % 65.4 % (test code = 770-8) IMM GRAN % (test 0.50 % code = 5954090816) LYMPH % (test code 25.9 % = 736-9) MONO % (test code 5.7 % = 5905-5) EOS % (test code = 1.7 % 713-8) BASO % (test code 0.8 % = 706-2) GRAN MAT 4.16 10*3/uL 1.88-7.09 x10^3(ANC) (test code = 6793987499) IMM GRAN x10^3 0.03 10*3/uL 0.00-0.06 (test code = 7356078086) LYMPH x10^3 (test 1.65 10*3/uL 1.32-3.29 code = 731-0) MONO x10^3 (test 0.36 10*3/uL 0.33-0.92 code = 742-7) EOS x10^3 (test 0.11 10*3/uL 0.03-0.39 code = 711-2) BASO x10^3 (test 0.05 10*3/uL 0.01-0.07 code = 704-7) [facility] [id number] 06:40:44 Test Item Value Reference Interpretation Comments Range TROPONIN I (test 0.003 ng/mL See_Comment [Automated code = 8129937723) message] The system which generated this result [...] biotin. Lab Interpretation Normal (test code = 36631-1) [facility] [id number] 04:15:42 Test Item Value Reference Interpretation Comments Range TROPONIN I (test 0.003 ng/mL See_Comment [Automated code = 2326839259) message] The system which generated this result [...] biotin. Lab Interpretation Normal (test code = 03713-9) [facility]landN-TERMINAL [id number] 04:12:45 Test Item Value Reference Range Interpretation Comments NT-proBNP (test code 44 pg/mL See_Comment [Autom ated = 2610611519) message] The system which generated this result transmitted reference range : <=125. The reference range was not used to interpret this result as normal/abnormal . LAKESHIA (test code = LAKESHIA) Biotin has been reported to cause a negative bias, interpret results relative to patient's use of biotin. Lab Interpretation Normal (test code = 43080-4) [facility]MAGN[facility]IUM2021-10-12 04:04:19 Test Item Value Reference Range Interpretation Comments MAGNESIUM (test code = 9921184606) 1.6 mg/dL 1.7-2.4 L Lab Interpretation (test code = Abnormal 11773-3) [facility]landCOMP. METABOLIC PANEL (67019)2020-12-31 04:03:59 Test Item Value Reference Range Interpretation Comments NA (test code = 132 mmol/L 135-145 L 9663134389) K (test code = 4.6 mmol/L 3.5-5.0 5943473224) CL (test code = 95 mmol/L 98-108 L 8893940904) CO2 TOTAL (test code = 28 mmol/L 23-31 5616332804) AGAP (test code = 2-16 9558314018) BUN (test code = 17 mg/dL 7-23 8384375228) GLUCOSE (test code = 361 mg/dL 70-110 H 2638713920) CREATININE (test code = 0.81 mg/dL 0.50-1.04 1787368317) TOTAL BILI (test code = 0.4 mg/dL 0.1-1.1 8424987571) CALCIUM (test code = 9.7 mg/dL 8.6-10.6 5730016972) T PROTEIN (test code = 7.5 g/dL 6.3-8.2 9024859291) ALBUMIN (test code = 4.3 g/dL 3.5-5.0 7166429173) ALK PHOS (test code = 147 U/L 34-122 H 2526969145) ALTv (test code = 49 U/L 5-35 H 1742-6) AST(SGOT) (test code = 51 U/L 13-40 H 7022125688) eGFR (test code = mL/min/1.73m2 6532422605) LAKESHIA (test code = LAKESHIA) Association of [...] tests). Lab Interpretation Abnormal (test code = 78780-1) [facility] WITH [id number] 03:53:03 Test Item Value Reference Range Interpretation Comments WBC (test code = See_Comment [Automated message] 6690-2) The system LEAFER generated this result transmitted ref erence range: 4.30 - 1 1.10 10*3/?L. The re ference range was not u sed to interpret this result as normal/abnor mal. RBC (test code = See_Comment [Automated message] 789-8) The system LEAFER generated this result transmitted ref erence range: [...] RDW-SD (test code 42.2 fL 39.0-49.9 = 92759-6) RDW-CV (test code 13.5 % 12.0-15.5 = 788-0) PLT (test code = See_Comment [Automated message] 267-3) The system LEAFER generated this result transmitted ref erence range: 166 - 35 8 10*3/?L. The re ference range was not u sed to interpret this result as normal/abnor mal. MPV (test code = 10.2 fL 9.5-12.9 57488-5) NRBC/100 WBC (test See_Comment [Automat ed message] code = 8262977340) The [employer] which generated this result transmitted ref erence range: 0.0 - 10 .0 /100 WBCs. The refer ence range was not u sed to interpret this result as normal/abnor mal. NRBC x10^3 (test <0.01 See_Comment [Automated message] code = 5202532515) The [employer] which generated this result transmitted ref erence range: 10*3/?L. The reference range was not used to interpr et this result as normal/abnormal . GRAN MAT (NEUT) % 51.9 % (test code = 770-8) IMM GRAN % (test 0.20 % code = 5521761282) LYMPH % (test code 38.6 % = 736-9) MONO % (test code 6.4 % = 5905-5) EOS % (test code = 2.1 % 713-8) BASO % (test code 0.8 % = 706-2) GRAN MAT 2.66 10*3/uL 1.88-7.09 x10^3(ANC) (test code = 3349201857) IMM GRAN x10^3 <0.03 0.00-0.06 (test code = 4653608574) LYMPH x10^3 (test 1.98 10*3/uL 1.32-3.29 code = 731-0) MONO x10^3 (test 0.33 10*3/uL 0.33-0.92 code = 742-7) EOS x10^3 (test 0.11 10*3/uL 0.03-0.39 code = 711-2) BASO x10^3 (test 0.04 10*3/uL 0.01-0.07 code = 704-7) [id number] 03:21:35 Test Item Value Reference Interpretation Comments Range TROPONIN I (test 0.002 ng/mL See_Comment [Automated code = 7514393625) message] The system which generated this result [...] biotin. Lab Interpretation Normal (test code = 19972-2) [facility]TR[facility] [id number] 01:28:42 Test Item Value Reference Interpretation Comments Range TROPONIN I (test 0.002 ng/mL See_Comment [Automated code = 8602874831) message] The system which generated this result [...] biotin. Lab Interpretation Normal (test code = 07633-8) [facility] [id number] 01:25:19 Test Item Value Reference Range Interpretation Comments NT-proBNP (test code 114 pg/mL See_Comment [Autom ated = 1437524982) message] The system which generated this result transmitted reference range : <=125. The reference range was not used to interpret this result as normal/abnormal . LAKESHIA (test code = LAKESHIA) Biotin has been reported to cause a negative bias, interpret results relative to patient's use of biotin. Lab Interpretation Normal (test code = 86462-3) [facility]. METABOLIC PANEL (45332)2020-10-15 01:16:37 Test Item Value Reference Range Interpretation Comments NA (test code = 135 mmol/L 135-145 4413036567) K (test code = 4.7 mmol/L 3.5-5.0 9661870442) CL (test code = 102 mmol/L 98-108 5919733579) CO2 TOTAL (test code = 26 mmol/L 23-31 6756396468) AGAP (test code = 2-16 7174711175) BUN (test code = 15 mg/dL 7-23 2280382655) GLUCOSE (test code = 171 mg/dL 70-110 H 0790579179) CREATININE (test code = 0.65 mg/dL 0.50-1.04 8036191730) TOTAL BILI (test code = 0.4 mg/dL 0.1-1.1 9052121413) CALCIUM (test code = 9.8 mg/dL 8.6-10.6 2005709853) T PROTEIN (test code = 8.1 g/dL 6.3-8.2 0813427314) ALBUMIN (test code = 4.3 g/dL 3.5-5.0 3361464198) ALK PHOS (test code = 141 U/L 34-122 H 7259986810) ALTv (test code = 36 U/L 5-35 H 1742-6) AST(SGOT) (test code = 33 U/L 13-40 1751634633) eGFR (test code = mL/min/1.73m2 7147952029) LAKESHIA (test code = LAKESHIA) Association of [...] tests). Lab Interpretation Abnormal (test code = 97162-5) [facility] [id number] 01:16:37 Test Item Value Reference Range Interpretation Comments LIPASE (test code = 3409574122) 192 U/L 0-220 Lab Interpretation (test code = Normal 16766-2) [facility] WITH [id number] 01:02:37 Test Item Value Reference Range Interpretation Comments WBC (test code = See_Comment [Automated message] 6890-2) The system LEAFER generated this result transmitted ref erence range: 4.30 - 1 1.10 10*3/?L. The re ference range was not u sed to interpret this result as normal/abnor mal. RBC (test code = See_Comment [Automated message] 439-8) The system LEAFER generated this result transmitted ref erence range: [...] RDW-SD (test code 45.2 fL 39.0-49.9 = 91705-7) RDW-CV (test code 15.2 % 12.0-15.5 = 788-0) PLT (test code = See_Comment [Automated message] 847-3) The system LEAFER generated this result transmitted ref erence range: 166 - 35 8 10*3/?L. The re ference range was not u sed to interpret this result as normal/abnor mal. MPV (test code = 9.9 fL 9.5-12.9 17740-8) NRBC/100 WBC (test See_Comment [Automat ed message] code = 2872924114) The syste m which generated this result transmitted ref erence range: 0.0 - 10 .0 /100 WBCs. The refer ence range was not u sed to interpret this result as normal/abnor mal. NRBC x10^3 (test <0.01 See_Comment [Automated message] code = 6071656180) The syste m which generated this result transmitted ref erence range: 10*3/?L. The reference range was not used to interpr et this result as normal/abnormal . GRAN MAT (NEUT) % 59.0 % (test code = 770-8) IMM GRAN % (test 0.30 % code = 9051454175) LYMPH % (test code 31.4 % = 736-9) MONO % (test code 6.6 % = 5905-5) EOS % (test code = 2.2 % 713-8) BASO % (test code 0.5 % = 706-2) GRAN MAT 3.73 10*3/uL 1.88-7.09 x10^3(ANC) (test code = 8611416858) IMM GRAN x10^3 <0.03 0.00-0.06 (test code = 5496995034) LYMPH x10^3 (test 1.99 10*3/uL 1.32-3.29 code = 731-0) MONO x10^3 (test 0.42 10*3/uL 0.33-0.92 code = 742-7) EOS x10^3 (test 0.14 10*3/uL 0.03-0.39 code = 711-2) BASO x10^3 (test 0.03 10*3/uL 0.01-0.07 code = 704-7) [facility] GLUCOSE (AUTOMATED)2020-07-27 21:41:45 Test Item Value Reference Range Interpretation Comments POCT GLU (test code = 189 mg/dL 70-110 H Notifi ed Provider [id number]) Lab Interpretation (test Abnormal code = 65819-6) [facility] GLUCOSE (AUTOMATED)2020-07-27 18:58:32 Test Item Value Reference Range Interpretation Comments POCT GLU (test code = 176 mg/dL 70-110 H Notifi ed Provider [id number]) Lab Interpretation (test Abnormal code = 49437-9) [facility] GLUCOSE (AUTOMATED)2020-07-27 14:52:56 Test Item Value Reference Range Interpretation Comments POCT GLU (test code = 5834814635) 171 mg/dL 70-110 H Lab Interpretation (test code = Abnormal 12134-2) [facility]20[facility] 13:31:40 Test Item Value Reference Range Interpretation Comments MAGNESIUM (test code = 5347620185) 2.2 mg/dL 1.7-2.4 Lab Interpretation (test code = Normal 06458-0) [facility] Metabolic Panel (NA, K, CL, CO2, GLUCOSE, BUN, CREATININE, CA)2020-07-27 10:04:22 Test Item Value Reference Range Interpretation Comments NA (test code = 134 mmol/L 135-145 L 6772245538) K (test code = 3.7 mmol/L 3.5-5.0 1906251926) CL (test code = 96 mmol/L 98-108 L 1305179597) CO2 TOTAL (test code = 30 mmol/L 23-31 5523435072) AGAP (test code = 2-16 7959233456) BUN (test code = 20 mg/dL 7-23 0438466925) GLUCOSE (test code = 151 mg/dL 70-110 H 3518032672) CREATININE (test code = 0.79 mg/dL 0.50-1.04 0698359101) CALCIUM (test code = 8.9 mg/dL 8.6-10.6 6453535435) eGFR (test code = mL/min/1.73m2 5413989929) LAKESHIA (test code = LAKESHIA) Association of [...] tests). Lab Interpretation Abnormal (test code = 52763-3) [facility] with [id number] 09:31:01 Test Item Value Reference Range Interpretation Comments WBC (test code = See_Comment [Automated message] 6690-2) The system LEAFER generated this result transmitted ref erence range: 4.30 - 1 1.10 10*3/?L. The re ference range was not u sed to interpret this result as normal/abnor mal. RBC (test code = See_Comment [Automated message] 789-8) The system LEAFER generated this result transmitted ref erence range: [...] RDW-SD (test code 40.1 fL 39.0-49.9 = 23526-8) RDW-CV (test code 13.3 % 12.0-15.5 = 788-0) PLT (test code = See_Comment [Automated message] 777-3) The system whic h generated this result transmitted ref erence range: 166 - 35 8 10*3/?L. The re ference range was not u sed to interpret this result as normal/abnor mal. MPV (test code = 9.7 fL 9.5-12.9 03136-8) NRBC/100 WBC (test See_Comment [Automat ed message] code = 5453383391) The syste m which generated this result transmitted ref erence range: 0.0 - 10 .0 /100 WBCs. The refer ence range was not u sed to interpret this result as normal/abnor mal. NRBC x10^3 (test <0.01 See_Comment [Automated message] code = 8393473413) The syste m which generated this result transmitted ref erence range: 10*3/?L. The reference range was not used to interpr et this result as normal/abnormal . GRAN MAT (NEUT) % 47.6 % (test code = 770-8) IMM GRAN % (test 0.30 % code = 6754806636) LYMPH % (test code 39.8 % = 736-9) MONO % (test code 6.0 % = 5905-5) EOS % (test code = 5.7 % 713-8) BASO % (test code 0.6 % = 706-2) GRAN MAT 3.07 10*3/uL 1.88-7.09 x10^3(ANC) (test code = 8353230685) IMM GRAN x10^3 <0.03 0.00-0.06 (test code = 9187811214) LYMPH x10^3 (test 2.57 10*3/uL 1.32-3.29 code = 731-0) MONO x10^3 (test 0.39 10*3/uL 0.33-0.92 code = 742-7) EOS x10^3 (test 0.37 10*3/uL 0.03-0.39 code = 711-2) BASO x10^3 (test 0.04 10*3/uL 0.01-0.07 code = 704-7) [facility] GLUCOSE (AUTOMATED)2020-07-27 02:41:42 Test Item Value Reference Range Interpretation Comments POCT GLU (test code = 4225478097) 174 mg/dL 70-110 H Lab Interpretation (test code = Abnormal 94656-2) [facility] GLUCOSE (AUTOMATED)2020-07-26 22:35:06 Test Item Value Reference Range Interpretation Comments POCT GLU (test code = 3267942067) 130 mg/dL 70-110 H Lab Interpretation (test code = Abnormal 81256-8) [facility] GLUCOSE (AUTOMATED)2020-07-26 17:16:21 Test Item Value Reference Range Interpretation Comments POCT GLU (test code = 1109408073) 195 mg/dL 70-110 H Lab Interpretation (test code = Abnormal 04154-7) [facility] 14:37:29 Test Item Value Reference Range Interpretation Comments MAGNESIUM (test code = 1645385614) 1.4 mg/dL 1.7-2.4 L Lab Interpretation (test code = Abnormal 46593-4) [facility]XR CHEST 2 [id number] 14:02:02 No acute cardiopulmonary process. Preliminary Report [...] this study and agree with the abovereport. [facility] GLU[facility] (AUT[facility])2020-07-26 13:00:53 Test Item Value Reference Range Interpretation Comments POCT GLU (test code = 5587257648) 176 mg/dL 70-110 H Lab Interpretation (test code = Abnormal 91936-3) [facility]landTROPONIN [id number] 09:17:12 Test Item Value Reference Range Interpretation Comments TROPONIN I (test 0.002 ng/mL See_Comment [Automated code = 6125766645) message] The system which generated this result [...] ? Lab Interpretation Normal (test code = 42864-8) [facility]landLIPID PANEL (22137)(TOTAL CHOLESTEROL, TRIGLYCERIDES, HDL)2020-07-26 09:12:35 Test Item Value Reference Range Interpretation Comments CHOL (test code = 226 mg/dL 120-200 H 9239052095) HDL (test code = 36 mg/dL >50 L 2628012843) HDLC RATIO (test code = See_Comment H [Au tomated message] 9458641994) The system LEAFER generated this result transmit kenroy reference range : <=4.5. The refe rence range was not u sed to interpret th is result as normal/abnormal . TRIG (test code = 194 mg/dL 30-170 H 0398805526) LDL CHOL (test code = 151 mg/dL See_Comment [Auto mated message] 96728-3) The system LEAFER generated this result transmit kenroy reference range : <=160. The refe rence range was not u sed to interpret th is result as normal/abnormal . VLDL (test code = 39 mg/dL 5-60 3886716313) Lab Interpretation (test Abnormal code = 01789-7) [facility]landTHYROID STIMULATING [id number] 07:29:55 Test Item Value Reference Range Interpretation Comments TSH (test code = See_Comment Biotin has been 0457013354) reported to cau se a negative bias, interpret resul ts relative to elida white's use of biotin. [Automated mess age] The system LEAFER generated this result transmitted ref erence range: 0.45 - 4 .70 mIU/L. The refe rence range was not u sed to interpret this result as normal/abnor mal. Lab Interpretation (test Normal code = 26353-0) [facility]landGlycosylated Hemoglobin (A1C)2020-07-26 07:27:09 Test Item Value Reference Range Interpretation Comments HGB A1C (test code = 8.7 % 4.0-5.7 H 4548-4) LAKESHIA (test code = LAKESHIA) Reference RangesNormal: <5.7%Prediabetes: 5.7 - 6.4%Diabetes: > 6.5% Lab Interpretation (test Abnormal code = 93539-7) [facility]landPROTHROMBIN TIME / [id number] 06:57:08 Test Item Value Reference Range Interpretation Comments PROTIME PATIENT (test See_Comment [Auto mated message] code = 5964-2) The system Turning Art generated this result transmitted ref erence range: 10.1 - 1 2.6 Seconds. The re ference range was not u sed to interpret this result as normal/abnor mal. INR (test code = 6301-6) Nor mal INR <1.1; Warfarin Therap eutic range 2.0 to 3. 0 or 2.5 to 3.5, dep ending upon the indica tions. Lab Interpretation (test Normal code = 27832-0) [facility]landD-[id number] 06:57:08 Test Item Value Reference Interpretation Comments Range D-DIMER (test code = See_Comment H [Autom ated 9615272625) message] The system which generated this result [...] diagnosis. Lab Interpretation Abnormal (test code = 34311-9) [facility] MainlandDrug Screen [id number] 05:55:15 Test Item Value Reference Range Interpretation Comments AMPHET (test code = Negative Negative 2646163883) Cocaine Metabolite (test Negative Negative code = 4443751757) OPIATES (test code = Negative Negative 7632479725) THC (test code = Presumptive Positive Negative A 2537732587) LAKESHIA (test code = LAKESHIA) Urine Drug Cutoff Ranges Amphetamine: ? 1,000 ng/mLCocaine: ? 150 ng/mLOpiates: ? 300 ng/mLCannabinoids: ?50 ng/mL The results are to be used only for medical (i.e., treatment) purposes. Unconfirmed screening results must not be used for non-medical purposes (e.g., employment testing, legal testing). Lab Interpretation (test Abnormal code = 41185-0) [facility] MainlandUrinalysis2021-05-07 04:46:49 Test Item Value Reference Range Interpretation Comments APPEARANCE (test code = Hazy Clear A 8581948115) COLOR (test code = Yellow Yellow 6936831159) PH (test code = 4.8-8.0 5452140286) SP GRAVITY (test code = 1.003-1.030 0022767969) GLU U QUAL (test code = Normal Normal 0605330983) BLOOD (test code = 3+ Negative A 1859262895) KETONES (test code = Negative Negative 5700481242) PROTEIN (test code = 30 mg/dL Negative A 2887-8) UROBILIN (test code = Normal Normal 8467015766) BILIRUBIN (test code = Negative Negative 1332728616) NITRITE (test code = Negative Negative 6171172762) LEUK CORNELL (test code = Negative Negative 9924023469) RBC/HPF (test code = See_Comment [Autom ated message] 8836983405) The system LEAFER generated this result transmitted ref erence range: 0 - 3 HP F. The reference range was not used to int erpret this result as normal/abnormal . WBC/HPF (test code = See_Comment [Autom ated message] 8675394097) The system LEAFER generated this result transmitted ref erence range: 0 - 5 HP F. The reference range was not used to int erpret this result as normal/abnormal . BACTERIA (test code = Few Negative A 3857376946) MUCOUS (test code = Slight Negative LPF A 2679407851) SQ EPITH (test code = See_Comment H [Auto mated message] 0042442751) The system LEAFER generated this result transmitted ref erence range: <=2 HPF. The reference range was not used to int erpret this result as normal/abnormal . ASCORBIC ACID (test code Negative = 9719192197) Lab Interpretation (test Abnormal code = 04161-5) [facility]landCOVID-19 (ID NOW RAPID TESTING)2020-07-26 03:17:11 Test Item Value Reference Range Interpretation Comments SARS-CoV-2 Rapid ID NOW Not Detected Not Detected (test code = 34684-0) LAKESHIA (test code = LAKESHIA) ID NOW COVID-19 Assay is an isothermal nucleic acid amplification test intended for the qualitative detection of nucleic acid from SARS-CoV-2 viral RNA in nasopharyngeal (TILE SPRAYER) specimens. It is used under Emergency Use [...] indicated. Lab Interpretation Normal (test code = 57531-8) [facility] MainlandVINIAdriana [id number] 01:57:18 Test Item Value Reference Range Interpretation Comments TROPONIN I (test 0.001 ng/mL See_Comment [Automated code = 1333940880) message] The system which generated this result [...] ? Lab Interpretation Normal (test code = 99563-5) [facility]landN-TERMINAL [id number] 01:57:18 Test Item Value Reference Range Interpretation Comments NT-proBNP (test code 294 pg/mL See_Comment H [Autom ated = 7518934142) message] The system which generated this result transmitted reference range : <=125. The reference range was not used to interpret this result as normal/abnormal . LAKESHIA (test code = LAKESHIA) Biotin has been reported to cause a negative bias, interpret results relative to patient's use of biotin. Lab Interpretation Abnormal (test code = 43985-1) [facility]landCOMP. METABOLIC PANEL (59444)2020-07-26 01:44:18 Test Item Value Reference Range Interpretation Comments NA (test code = 136 mmol/L 135-145 5720875169) K (test code = 4.9 mmol/L 3.5-5.0 7133225299) CL (test code = 99 mmol/L 98-108 3238690714) CO2 TOTAL (test code = 30 mmol/L 23-31 2975368388) AGAP (test code = 2-16 3710677049) BUN (test code = 13 mg/dL 7-23 2969132555) GLUCOSE (test code = 150 mg/dL 70-110 H 6600869167) CREATININE (test code = 0.68 mg/dL 0.50-1.04 6891494695) TOTAL BILI (test code = 0.4 mg/dL 0.1-1.7 6159128698) CALCIUM (test code = 10.3 mg/dL 8.6-10.6 1898737876) T PROTEIN (test code = 7.2 g/dL 6.3-8.2 8581046730) ALBUMIN (test code = 4.1 g/dL 3.5-5.0 8970429423) ALK PHOS (test code = 128 U/L 34-122 H 9251838553) ALTv (test code = 30 U/L 5-35 1742-6) AST(SGOT) (test code = 26 U/L 13-40 3755753594) eGFR (test code = mL/min/1.73m2 3393727347) LAKESHIA (test code = LAKESHIA) Association of [...] tests). Lab Interpretation Abnormal (test code = 43281-5) [facility] MainlandLipase [id number] 01:44:18 Test Item Value Reference Range Interpretation Comments LIPASE (test code = 4176649832) 91 U/L 0-220 Lab Interpretation (test code = Normal 74502-2) [facility] MainlandCBC WITH [id number] 01:31:54 Test Item Value Reference Range Interpretation Comments WBC (test code = See_Comment [Automated message] 6690-2) The system LEAFER generated this result transmitted ref erence range: 4.30 - 1 1.10 10*3/?L. The re ference range was not u sed to interpret this result as normal/abnor mal. RBC (test code = See_Comment [Automated message] 789-8) The system LEAFER generated this result transmitted ref erence range: [...] RDW-SD (test code 40.5 fL 39.0-49.9 = 59950-0) RDW-CV (test code 13.3 % 12.0-15.5 = 788-0) PLT (test code = See_Comment [Automated message] 777-3) The system Basic6 h generated this result transmitted ref erence range: 166 - 35 8 10*3/?L. The re ference range was not u sed to interpret this result as normal/abnor mal. MPV (test code = 9.9 fL 9.5-12.9 28999-1) NRBC/100 WBC (test See_Comment [Automat ed message] code = 6096886491) The syste m which generated this result transmitted ref erence range: 0.0 - 10 .0 /100 WBCs. The refer ence range was not u sed to interpret this result as normal/abnor mal. NRBC x10^3 (test <0.01 See_Comment [Automated message] code = 8162808672) The syste m which generated this result transmitted ref erence range: 10*3/?L. The reference range was not used to interpr et this result as normal/abnormal . GRAN MAT (NEUT) % 52.1 % (test code = 770-8) IMM GRAN % (test 0.30 % code = 7262801420) LYMPH % (test code 36.5 % = 736-9) MONO % (test code 5.5 % = 5905-5) EOS % (test code = 5.0 % 713-8) BASO % (test code 0.6 % = 706-2) GRAN MAT 3.53 10*3/uL 1.88-7.09 x10^3(ANC) (test code = 4755136940) IMM GRAN x10^3 <0.03 0.00-0.06 (test code = 1059646370) LYMPH x10^3 (test 2.47 10*3/uL 1.32-3.29 code = 731-0) MONO x10^3 (test 0.37 10*3/uL 0.33-0.92 code = 742-7) EOS x10^3 (test 0.34 10*3/uL 0.03-0.39 code = 711-2) BASO x10^3 (test 0.04 10*3/uL 0.01-0.07 code = 704-7) [facility]landPOCT [id number] 01:23:00 Test Item Value Reference Range Interpretation Comments POCT PREG (test code = 1605) Negative On board controls acceptable with Yes C Line (test code = 3574) POCT PREG LOT # (test code = 3575) [id number] POCT PREG TEST DATE (test 02-18-2022 code = 3576) Lab Interpretation (test code = Normal 88670-4) [facility]landGLUBED2021-03-15 16:31:00 Test Item Value Reference Range Interpretation Comments GLUBED (test code = GLUBED) 211 mg/dL 70-110 H [id number] 11:39:00 Test Item Value Reference Range Interpretation Comments GLUBED (test code = GLUBED) 265 mg/dL 70-110 H [id number] 07:45:00 Test Item Value Reference Range Interpretation Comments GLUBED (test code = GLUBED) 214 mg/dL 70-110 H BASIC METABOLIC [id number] 03:50:00 Test Item Value Reference Range Interpretation [...] CA) 9.3 mg/dl 8.0-10.5 N CBC W/AUTO [id number] 03:40:00 Test Item Value Reference Range Interpretation [...] = 0.00 X10 3uL 0.00-0.01 N NRBC#) [id number] 20:07:00 Test Item Value Reference Range Interpretation Comments GLUBED (test code = GLUBED) 207 mg/dL 70-110 H [id number] 16:05:00 Test Item Value Reference Range Interpretation Comments GLUBED (test code = GLUBED) 279 mg/dL 70-110 H [id number] 11:47:00 Test Item Value Reference Range Interpretation Comments GLUBED (test code = GLUBED) 256 mg/dL 70-110 H [id number] 08:30:00 Test Item Value Reference Range Interpretation Comments GLUBED (test code = GLUBED) 213 mg/dL 70-110 H BASIC METABOLIC [id number] 08:24:00 Test Item Value Reference Range Interpretation [...] code = CA) 8.3 mg/dl 8.0-10.5 N [id number] 08:24:00 Test Item Value Reference Range Interpretation Comments MAGNESIUM (test code = MAG) 1.9 mg/dl 1.8-2.4 N [id number] 07:46:00 Test Item Value Reference Range Interpretation Comments GLUBED (test code = GLUBED) 172 mg/dL 70-110 H [id number] 20:12:00 Test Item Value Reference Range Interpretation Comments GLUBED (test code = GLUBED) 241 mg/dL 70-110 H [id number] 15:05:00 Test Item Value Reference Range Interpretation Comments GLUBED (test code = GLUBED) 196 mg/dL 70-110 H [id number] 14:39:00 Test Item Value Reference Range Interpretation Comments GLUBED (test code = GLUBED) 234 mg/dL 70-110 H [id number] 07:43:00 Test Item Value Reference Range Interpretation Comments MAGNESIUM (test code = MAG) 1.8 mg/dl 1.8-2.4 N BASIC METABOLIC [id number] 07:42:00 Test Item Value Reference Range Interpretation [...] CA) 8.5 mg/dl 8.0-10.5 N CBC W/AUTO [id number] 07:28:00 Test Item Value Reference Range Interpretation [...] = 0.00 X10 3uL 0.00-0.01 N NRBC#) [id number] 20:40:00 Test Item Value Reference Range Interpretation Comments GLUBED (test code = GLUBED) 199 mg/dL 70-110 H [id number] 13:57:00 Test Item Value Reference Range Interpretation Comments GLUBED (test code = GLUBED) 194 mg/dL 70-110 H [id number] 13:38:00 Test Item Value Reference Range Interpretation Comments HGBA1C% (test code = HGBA1C%) 8.6 %A1C 4.8-6.0 H ESTIMATED AVERAGE GLUCOSE (test 200 MG/DL code = EAG) BASIC METABOLIC [id number] 11:33:00 Test Item Value Reference Range Interpretation [...] CA) 8.6 mg/dl 8.0-10.5 N THYROID STIMULATING [id number] 11:33:00 Test Item Value Reference Range Interpretation Comments THYROID STIMULATING 2.48 IU/ML 0.47-5.01 N Result i s in HORMONE (test code = Interna tional TSH) Units/millilite r CARDIAC ENZYMES [id number] 11:33:00 Test Item Value Reference Range Interpretation Comments CREATINE KINASE (CK) 108 Units/L 21-215 N (test code = CK) TROPONIN-I (test code <0.02 NG/ML 0.00-0.06 N REFERE NCE RANGE = TROPI) TROPONIN I HEAL THY INDIVIDUALS: <0 .06 ng/mL R/O ISCHE OSMANI: 0.07 - 0.60 ng/ mL CUT-OFF RANGE F OR AMI: 0.60 - 1.5 ng/mL - CTA CHEST FOR [id number] 01:43:00 [facility] LE[facility] RUBIO : 1980 Sex: F FAX: Carl Lawson MD [place]: [address]: REG Name: LEIGH FRYE [facility] : 1980 Age/S: 40/F [address] [facility] Unit: [id number] Loc: [address] Phys: [place] [address] Acct: [id number] Dis Date: Status: REG ER PHONE #: [phone] Exam Date: 05/31/2020 0127 FAX #: Reason: r/o pe EXAMS: CPT CODE: [id number] [place] [address] HISTORY: Chest pain, evaluate for pulmonary embolus. Location: C3 COMPARISON: None TECHNIQUE: Axial tomograms through the chest were obtained after intravenous contrast utilizing pulmonary CTA protocol. Multiplanar maximum in tensity projection reformatted images are provided. One or [...] hilar adenopathy. No significant pleural effusion. No acute osseous abnormalities are demonstrated. Minimal basilar atelectasis. No focal consolidation. IMPRESSION: 1. No evidence of pulmonary embolus. at 0143 Reported and signed by: Ko Friedman M.D. CC: Carl Lawson MD Technologist: MINDA SIMMONS Trnscrd Dt/Tm: 05/31/2020 (0143) t.SDR.[email or web address] Orig Print D/T: S: 05/31/2020 (0146 PAGE 1 Signed ReportD-DIMER/[id number] 01:20:00 Test Item Value Reference Range Interpretation [...] appropriateclin ical evaluations. - XR CHEST 1 [id number] 01:01:00 [facility] : 1980 Sex: F FAX: Carl Lawson MD [place]: St: REG Name: LEIGH FRYE [facility] : 1980 Age/S: 40/F [address] [facility] Unit #: [id number] Loc: E.ERS2 [place], [place] Phys: [place] [address] Acct: [id number] Dis Date: Status: REG ER PHONE #: [phone] Exam Date: 05/31/202030 FAX #: [phone] Reason: SOB EXAMS: CPT CODE: [id number] XR CHEST 1 V 67515 EXAM: - XR CHEST 1 V HISTORY: Shortness of breath. Chest pain. COMPARISON: September 09, 2018. FINDINGS: Single AP view of the chest is provided. Heart size and vascularity are within normal limits. There is no evidence of a focal consolidation. There is no pleural effusion or pneumothorax. There is no definite acute osseous abnormality. IMPRESSION: No radiographic evidence of acute cardiopulmonary process. at 0101 Reported and signed by: Tanner Vaz M.D. CC: Carl Lawson MD Technologist: JERONIMO LEONARD Trnscrd Date/Time/By: 05/31/2020 (100) : By: [email or web address] PAGE 1 Signed Report FAX: Carl Lawson MD [place]: St: REG Name: [facility] : 1980 Age/S: 40/F [address] [facility] [address] [facility] Unit #: [id number] Loc: [address] Phys:[place] [id number] Acct: [id number] Dis Date: Status: REG ER PHONE #: [phone] Exam Date: 05/31/2020 0031 FAX #: [phone] Reason: SOB EXAMS: CPT CODE: [id number] XR CHEST 1 V 88170 <Continued> Orig Print D/T: S: 05/31/2020 (0104) PAGE 2 Signed ReportBASIC METABOLIC [id number] 00:58:00 Test Item Value Reference Range Interpretation [...] CA) 9.4 mg/dl 8.0-10.5 N B-TYPE NATRIURETIC [id number] 00:58:00 Test Item Value Reference Range Interpretation Comments B-TYPE NATRIURETIC PEPTIDE (test 36.1 PG/ML 5-100 N code = BNP) [id number] 00:58:00 Test Item Value Reference Range Interpretation Comments TROPONIN-I (test <0.02 NG/ML 0.00-0.06 N REFERENCE R ALEE code = TROPI) TROPONIN I HEA LTHY INDIVIDUALS: <0 .06 ng/mL R/O ISCHE OSMANI: 0.07 - 0.60 ng/ mL CUT-OFF RANGE F OR AMI: 0.60 - 1.5 ng/m L BASIC METABOLIC [id number] 00:57:00 Test Item Value Reference Range Interpretation [...] CA) 9.4 mg/dl 8.0-10.5 N B-TYPE NATRIURETIC [id number] 00:57:00 Test Item Value Reference Range Interpretation Comments B-TYPE NATRIURETIC PEPTIDE (test code PG/ML 5-100 = BNP) [id number] 00:57:00 Test Item Value Reference Range Interpretation Comments TROPONIN-I (test <0.02 NG/ML 0.00-0.06 N REFERENCE R ALEE code = TROPI) TROPONIN I HEA LTHY INDIVIDUALS: <0 .06 ng/mL R/O ISCHE OSMANI: 0.07 - 0.60 ng/ mL CUT-OFF RANGE F OR AMI: 0.60 - 1.5 ng/m L PROTHROMBIN [id number] 00:55:00 Test Item Value Reference Range Interpretation Comments PROTHROMBIN TIME 12.4 SECONDS 9.9-12.8 N PATIENT (test code = PTP) INTERNATIONAL NORMAL 1.1 0.89-1.14 N THE INR IS TO BE USED RATIO (test code = ONLY FOR MONITORING INR) ORAL ANTICOAGULANTTH ERAPY. THE FOLLOWING A RE SUGGESTED RANGE S [facility] LEGE OF CHEST PHYSICIANS:ELIAZAR CATION INR VALUEPROPHY [...] comments: .Is patient on anticoagulants? NCBC W/AUTO [id number] 00:47:00 Test Item Value Reference Range Interpretation [...] Interpretation Comments POCT GLU (test code = 1198495223) 125 mg/dL 70-110 H Lab Interpretation (test code = Abnormal 63643-8) [facility]AT[facility] [id number] 12:39:00 Test Item Value Reference Range Interpretation Comments CK (test code = 5108229701) 30 U/L 33-194 L Lab Interpretation (test code = Abnormal 88842-6) [facility]OVID[facility] (ID NOW RAPID TESTING)2020-04-06 03:33:00 Test Item Value Reference Range Interpretation Comments SARS-CoV-2 Rapid ID NOW Not Detected Not Detected (test code = 16320-4) LAKESHIA (test code = LAKESHIA) ID NOW COVID-19 Assay is an isothermal nucleic acid amplification test intended for the qualitative detection of nucleic acid from SARS-CoV-2 viral RNA in nasopharyngeal (TILE SPRAYER) specimens. It is used under Emergency Use [...] indicated. Lab Interpretation Normal (test code = 69507-9) [facility]landSALICYLATE2021-01-16 02:55:00 Test Item Value Reference Range Interpretation Comments SALICYLATE (test code <10 mg/L = 2224219786) LAKESHIA (test code = LAKESHIA) Therapeutic Range: ? Analgesic and Antipyretic Use ? 20-100 mg/L ? ? Anti-Inflammatory Use ? 100-250 mg/L Toxic Range: ? Greater than 300 mg/L [facility]landACETAMINOPHEN2021-01-16 02:53:00 Test Item Value Reference Range Interpretation Comments ACETAMINOP (test code = <10.0 10-30 L 1000446405) LAKESHIA (test code = LAKESHIA) Toxic: Greater than 200 ug/mL @ 4 hour post ingestion or greater than 50 ug/mL @ 12 hour post ingestion Lab Interpretation (test Abnormal code = 16446-4) [facility]land[facility]INALYSIS2021-01-16 02:39:00 Test Item Value Reference Range Interpretation Comments APPEARANCE (test code = Hazy Clear A 6932184889) COLOR (test code = Yellow Yellow 3430294436) PH (test code = 4.8-8.0 2055948109) SP GRAVITY (test code = 1.003-1.030 2880730841) GLU U QUAL (test code = Normal Normal 3270666067) BLOOD (test code = Negative Negative 6066543901) KETONES (test code = Negative Negative 0706257941) PROTEIN (test code = Negative Negative 2887-8) UROBILIN (test code = Normal Normal 2622848082) BILIRUBIN (test code = Negative Negative 7518864578) NITRITE (test code = Negative Negative 8814720007) LEUK CORNELL (test code = Negative Negative 0896850753) RBC/HPF (test code = See_Comment [Autom ated message] 3080876280) The system LEAFER generated this result transmitted ref erence range: 0 - 3 HP F. The reference range was not used to int erpret this result as normal/abnormal . WBC/HPF (test code = See_Comment [Autom ated message] 5317738765) The system LEAFER generated this result transmitted ref erence range: 0 - 5 HP F. The reference range was not used to int erpret this result as normal/abnormal . BACTERIA (test code = Many Negative A 1423783819) MUCOUS (test code = Slight Negative LPF A 4813675053) SQ EPITH (test code = HPF 0577888540) Lab Interpretation (test Abnormal code = 83880-8) [facility]landTROPONIN [id number] 02:39:00 Test Item Value Reference Range Interpretation Comments TROPONIN I (test <0.012 See_Comment [Automated code = 2494796011) message] The system which generated this result [...] ? Lab Interpretation Normal (test code = 85693-3) [facility]landETHANOL2021-01-16 02:35:00 Test Item Value Reference Range Interpretation Comments ALCOHOL (test code = <10 mg/dL 4911043282) LAKESHIA (test code = LAKESHIA) <10 Mibkaoqr19-042 Toxic>100 Depression of [employer] INSTRUCTOR>400 Fatalities Reported [facility]landCOMP. METABOLIC PANEL (83788)2020-04-06 02:30:00 Test Item Value Reference Range Interpretation Comments NA (test code = 136 mmol/L 135-145 2720702861) K (test code = 4.6 mmol/L 3.5-5 6536514011) CL (test code = 102 mmol/L 98-108 9119075122) CO2 TOTAL (test code = 25 mmol/L 23-31 3906838806) AGAP (test code = 2-16 4093163642) BUN (test code = 13 mg/dL 7-23 2098219773) GLUCOSE (test code = 133 mg/dL 70-110 H 1437254600) CREATININE (test code = 0.66 mg/dL 0.5-1.04 2612471511) TOTAL BILI (test code = 0.5 mg/dL 0.1-1.8 8171158829) CALCIUM (test code = 9.6 mg/dL 8.6-10.6 5476679661) T PROTEIN (test code = 7.9 g/dL 6.3-8.2 5974404457) ALBUMIN (test code = 4.4 g/dL 3.5-5 1139889540) ALK PHOS (test code = 135 U/L 34-122 H 5329353845) ALTv (test code = 36 U/L 5-35 H 1742-6) AST(SGOT) (test code = 33 U/L 13-40 5863655956) eGFR Calculation mL/min/1.73m2 (Non-) (test code = 9823780597) eGFR Calculation mL/min/1.73m2 () (test code = 9851349919) LAKESHIA (test code = LAKESHIA) Association of [...] tests). Lab Interpretation Abnormal (test code = 26615-4) [facility]landLIPASE2021-01-16 02:30:00 Test Item Value Reference Range Interpretation Comments LIPASE (test code = 8223117774) 96 U/L 0-220 Lab Interpretation (test code = Normal 08057-3) [facility] - DRUG SCREEN [id number] 02:21:00 Test Item Value Reference Range Interpretation Comments BENZO U (test code = Negative Negative 5963404120) CATARINO U (test code = Negative Negative 2870544746) AMPHET (test code = Negative Negative 6542319572) THC (test code = Negative Negative 0290212229) METHADONE (test code = Negative Negative 4452836331) Meth U (test code = Negative Negative 0758768799) OPIATES (test code = Negative Negative 8242384420) Cocaine Metabolite (test Negative Negative code = 2672754925) PROPOXY (test code = Negative Negative 0589722048) Tric U (test code = Negative Negative 8498027136) PCP (test code = Negative Negative 1291255170) OXYCOD (test code = Negative Negative 9514153021) LAKESHIA (test code = LAKESHIA) Urine Drug [...] testing). Lab Interpretation (test Normal code = 51673-7) [facility]landPOCT [id number] 02:16:00 Test Item Value Reference Range Interpretation Comments POCT PREG (test code = 1605) neg On board controls acceptable with yes C Line (test code = 3574) POCT PREG LOT # (test code = 3575) [id number] POCT PREG TEST DATE (test 11/19/2021 code = 3576) Lab Interpretation (test code = Normal 18936-9) [facility] WITH [id number] 02:00:00 Test Item Value Reference Range Interpretation Comments WBC (test code = See_Comment [Automated message] 6779-2) The system LEAFER generated this result transmitted ref erence range: 4.30 - 1 1.10 10*3/?L. The re ference range was not u sed to interpret this result as normal/abnor mal. RBC (test code = See_Comment [Automated message] 959-8) The system LEAFER generated this result transmitted ref erence range: [...] RDW-SD (test code 43.1 fL 39-49.9 = 41870-4) RDW-CV (test code 13.7 % 12-15.5 = 788-0) PLT (test code = See_Comment [Automated message] 777-3) The system whic h generated this result transmitted ref erence range: 166 - 35 8 10*3/?L. The re ference range was not u sed to interpret this result as normal/abnor mal. MPV (test code = 10.2 fL 9.5-12.9 21853-4) NRBC/100 WBC (test See_Comment [Automat ed message] code = 8103435394) The syste m which generated this result transmitted ref erence range: 0.0 - 10 .0 /100 WBCs. The refer ence range was not u sed to interpret this result as normal/abnor mal. NRBC x10^3 (test <0.01 See_Comment [Automated message] code = 7865363292) The syste m which generated this result transmitted ref erence range: 10*3/?L. The reference range was not used to interpr et this result as normal/abnormal . GRAN MAT (NEUT) % 57.8 % (test code = 770-8) IMM GRAN % (test 0.30 % code = 6561673071) LYMPH % (test code 33.6 % = 736-9) MONO % (test code 5.4 % = 5905-5) EOS % (test code = 2.3 % 713-8) BASO % (test code 0.6 % = 706-2) GRAN MAT 4.06 10*3/uL 1.88-7.09 x10^3(ANC) (test code = 6394288933) IMM GRAN x10^3 <0.03 0-0.06 (test code = 6457811777) LYMPH x10^3 (test 2.36 10*3/uL 1.32-3.29 code = 731-0) MONO x10^3 (test 0.38 10*3/uL 0.33-0.92 code = 742-7) EOS x10^3 (test 0.16 10*3/uL 0.03-0.39 code = 711-2) BASO x10^3 (test 0.04 10*3/uL 0.01-0.07 code = 704-7) [facility]landXR CHEST 1 [id number] 01:45:02 No distinct radiographic evidence of acute cardiopulmonary process. RL: 135 ORDERING PHYSICIAN: ? NE SILVER HISTORY: Shortness of breath. ? COMPARISON: 12/17/2019 FINDINGS: Single frontal view of the chest. Heart is normal in size. ?There is no pulmonary edema. There are no focalareas of consolidation. There is no pneumothorax. ?There are no pleuraleffusions. Osseous structures are unremarkable. ? Please note that chest radiography isnot a sensitive modality for thedetection of masses. Lamb, Radiant Results Inft User - 04/05/2020 7:46 PM CSTORDERING PHYSICIAN: NE RUBIN HISTORY: Shortness of breath. COMPARISON: 12/17/2019FINDINGS:Single frontal view of the chest.Heart is normal in size. There is no pulmonary edema. There are no focalareas of consolidation. There is no pneumothorax. There are no pleuraleffusions. Osseous structures are unremarkable. Please note that chest radiography is not a sensitive modality for thedetectionof masses.IMPRESSIONNo distinct radiographic evidence of acute cardiopulmonary process.RL: 135 [facility]en [id number] 07:27:00 Test Item Value Reference Range Interpretation Comments TROPONIN I (test <0.012 See_Comment [Automated code = 5066864094) message] The system which generated this result [...] ? Lab Interpretation Normal (test code = 39911-1) [facility] MainlandBapsychiatric Metabolic Panel (NA, K, CL, CO2, GLUCOSE, BUN, CREATININE, CA)2019-12-26 07:16:00 Test Item Value Reference Range Interpretation Comments NA (test code = 138 mmol/L 135-145 7746820697) K (test code = 3.9 mmol/L 3.5-5 7398393822) CL (test code = 104 mmol/L 98-108 6415896017) CO2 TOTAL (test code = 28 mmol/L 23-31 8059161316) AGAP (test code = 2-16 6797660537) BUN (test code = 9 mg/dL 7-23 4737008324) GLUCOSE (test code = 126 mg/dL 70-110 H 3700800889) CREATININE (test code = 0.62 mg/dL 0.5-1.04 4092721445) CALCIUM (test code = 8.9 mg/dL 8.6-10.6 7972668422) eGFR Calculation mL/min/1.73m2 (Non-) (test code = 5467863748) eGFR Calculation mL/min/1.73m2 () (test code = 5086204136) LAKESHIA (test code = LAKESHIA) Association of [...] tests). Lab Interpretation Abnormal (test code = 09117-2) [facility]landHepatic Function Panel (ALB, T.PRO, BILI T, BU/BC, ALT, AST, ALK PHOS)2019-12-26 07:16:00 Test Item Value Reference Range Interpretation Comments TOTAL BILI (test code = 0114176785) 0.2 mg/dL 0.1-1.1 BILI UNCON (test code = 6465352198) 0.2 mg/dL 0.1-1.1 BILI CONJ (test code = 2873240410) 0.0 mg/dL 0-0.3 T PROTEIN (test code = 0871414327) 6.6 g/dL 6.3-8.2 ALBUMIN (test code = 1134780646) 3.6 g/dL 3.5-5 ALK PHOS (test code = 5500763248) 113 U/L 34-122 ALTv (test code = 1742-6) 30 U/L 5-35 AST(SGOT) (test code = 6389527847) 34 U/L 13-40 Lab Interpretation (test code = Normal 77557-1) [facility] MainlandLipase [id number] 07:16:00 Test Item Value Reference Range Interpretation Comments LIPASE (test code = 3403552956) 70 U/L 0-220 Lab Interpretation (test code = Normal 77211-6) [facility]landADC / [facility] - DRUG SCREEN [id number] 07:09:00 Test Item Value Reference Range Interpretation Comments BENZO U (test code = Negative Negative 8778940775) CATARINO U (test code = Negative Negative 2347881523) AMPHET (test code = Negative Negative 0694502534) THC (test code = Negative Negative 0252796636) METHADONE (test code = Negative Negative 8106351825) Meth U (test code = Negative Negative 2758307869) OPIATES (test code = Presumptive Positive Negative A 3900326902) Cocaine Metabolite (test Negative Negative code = 0805948121) PROPOXY (test code = Negative Negative 9785643388) Tric U (test code = Negative Negative 5097989054) PCP (test code = Negative Negative 9699330828) OXYCOD (test code = Negative Negative 5394987926) LAKESHIA (test code = LAKESHIA) Urine Drug [...] testing). Lab Interpretation (test Abnormal code = 64278-1) [facility] with [id number] 06:56:00 Test Item Value Reference Range Interpretation Comments WBC (test code = See_Comment [Automated 9920-2) message] The sy stem which generated this result transmitted reference range : 4.30 - 11.10 10*3/?L. The reference range was not used to interpret this result as normal/abnormal . RBC (test code = See_Comment L [Automated 089-8) message] The sy stem which generated this [...] RDW-SD (test code = 44.4 fL 39-49.9 82207-0) RDW-CV (test code = 13.7 % 12-15.5 788-0) PLT (test code = See_Comment [Automated 777-3) message] The sy stem which generated this result transmitted reference range : 166 - 358 10*3/ ?L. The reference r alee was not used to interpret this result as normal/abnormal . MPV (test code = 10.0 fL 9.5-12.9 83258-6) NRBC/100 WBC (test See_Comment [Automat ed code = 1481629644) message] The system which generated this result transmitted reference range : 0.0 - 10.0 /100 WBCs. The refer ence range was not u sed to interpret th is result as normal/abnormal . NRBC x10^3 (test code <0.01 See_Comment [Auto mated = 4134704646) message] The s ystem which generated this result transmitted reference range : 10*3/?L. The reference range was not used to interpret this result as normal/abnormal . GRAN MAT (NEUT) % 60.7 % (test code = 770-8) IMM GRAN % (test code 0.40 % = 8895434842) LYMPH % (test code = 29.4 % 736-9) MONO % (test code = 5.1 % 5905-5) EOS % (test code = 3.8 % 713-8) BASO % (test code = 0.6 % 706-2) GRAN MAT x10^3(ANC) 3.20 10*3/uL 1.88-7.09 (test code = 2621506209) IMM GRAN x10^3 (test <0.03 0-0.06 code = 9356047082) LYMPH x10^3 (test code 1.55 10*3/uL 1.32-3.29 = 731-0) MONO x10^3 (test code 0.27 10*3/uL 0.33-0.92 L = 742-7) EOS x10^3 (test code = 0.20 10*3/uL 0.03-0.39 711-2) BASO x10^3 (test code 0.03 10*3/uL 0.01-0.07 = 704-7) Lab Interpretation Abnormal (test code = 07722-9) [facility] MainlandCT, [id number] 02:38:00Reason for exam:->ABDOMINAL PAINReason for exam:->DIARRHEAReason for [...] Verified Date/ Time: 12/25/2019 02:38:32 URINALYSIS W/ [id number] 01:44:00 Test Item Value Reference Range Interpretation [...] 1663) SOURCE(BEAKER) (test code = 2795) SCREEN, [id number] 01:31:00 Test Item Value Reference Range Interpretation Comments TEST URINE (BEAKER) (test Negative code = 583) RAD, CHEST, 1 VIEW, NON [id number] 00:14:00Reason for exam:->chest painReason for exam:->DIARRHEAReason for [...] Jaimes MDReport Verified Date/Time: 12/25/2019 00:14:07 12:14 [facility] [id number] 23:42:00 Test Item Value Reference Range Interpretation [...] failure, acidosis, acute neurological disease, and persistent tachyarrhythmia.Follow Up Specialist ID - ADMINHEPATIC FUNCTION [id number] 23:36:00 Test Item Value Reference Range Interpretation [...] (test code = 20 U/L 5-50 347) Follow Up Specialist ID - [id number] 23:36:00 Test Item Value Reference Range Interpretation Comments LIPASE (BEAKER) (test code = 749) 30 U/L 6-51 Follow Up Specialist ID - ADMINCREATINE KINASE (CK)2019-12-24 23:36:00 Test Item Value Reference Range Interpretation Comments CREATINE KINASE TOTAL (BEAKER) (test 38 U/L 25-235 code = 380) Follow Up Specialist ID - ADMINBASIC METABOLIC [id number] 23:34:00 Test Item Value Reference Range Interpretation [...] S NOT APPLICABLE FOR DIALYSIS PATIEN TS. Follow Up Specialist ID - ADMINCBC W/PLT COUNT & AUTO [id number] 23:15:00 Test Item Value Reference Range Interpretation [...] Interpretation Comments POCT GLU (test code = 2402882509) 120 mg/dL 70-110 H Lab Interpretation (test code = Abnormal 63027-8) [facility] GLUCOSE (AUTOMATED)2019-12-20 13:51:00 Test Item Value Reference Range Interpretation Comments POCT GLU (test code = 8491769295) 217 mg/dL 70-110 H Lab Interpretation (test code = Abnormal 03063-5) [facility] Metabolic Panel (NA, K, CL, CO2, GLUCOSE, BUN, CREATININE, CA)2019-12-20 10:10:00 Test Item Value Reference Range Interpretation Comments NA (test code = 137 mmol/L 135-145 3823152839) K (test code = 4.1 mmol/L 3.5-5 4161778920) CL (test code = 103 mmol/L 98-108 1854633204) CO2 TOTAL (test code = 27 mmol/L 23-31 7067498566) AGAP (test code = 2-16 0502589150) BUN (test code = 10 mg/dL 7-23 6635154553) GLUCOSE (test code = 116 mg/dL 70-110 H 4903600960) CREATININE (test code = 0.58 mg/dL 0.5-1.04 6163416702) CALCIUM (test code = 8.8 mg/dL 8.6-10.6 5862382205) eGFR Calculation mL/min/1.73m2 (Non-) (test code = 8075646378) eGFR Calculation mL/min/1.73m2 () (test code = 8294311013) LAKESHIA (test code = LAKESHIA) Association of [...] tests). Lab Interpretation Abnormal (test code = 77952-3) [facility]landMAGNESIUM2020-09-30 10:10:00 Test Item Value Reference Range Interpretation Comments MAGNESIUM (test code = 8894725093) 1.7 mg/dL 1.7-2.4 Lab Interpretation (test code = Normal 05448-5) [facility]landCB with [id number] 09:43:00 Test Item Value Reference Range Interpretation Comments WBC (test code = See_Comment [Automated message] 6690-2) The system LEAFER generated this result transmitted ref erence range: 4.30 - 1 1.10 10*3/?L. The re ference range was not u sed to interpret this result as normal/abnor mal. RBC (test code = See_Comment [Automated message] 569-8) The system LEAFER generated this result transmitted ref erence range: [...] RDW-SD (test code 43.7 fL 39-49.9 = 97039-9) RDW-CV (test code 13.5 % 12-15.5 = 788-0) PLT (test code = See_Comment [Automated message] 777-3) The system whic h generated this result transmitted ref erence range: 166 - 35 8 10*3/?L. The re ference range was not u sed to interpret this result as normal/abnor mal. MPV (test code = 9.8 fL 9.5-12.9 20515-6) NRBC/100 WBC (test See_Comment [Automat ed message] code = 7475053504) The syste m which generated this result transmitted ref erence range: 0.0 - 10 .0 /100 WBCs. The refer ence range was not u sed to interpret this result as normal/abnor mal. NRBC x10^3 (test <0.01 See_Comment [Automated message] code = 4262042785) The syste m which generated this result transmitted ref erence range: 10*3/?L. The reference range was not used to interpr et this result as normal/abnormal . GRAN MAT (NEUT) % 48.6 % (test code = 770-8) IMM GRAN % (test 0.00 % code = 1599876412) LYMPH % (test code 40.6 % = 736-9) MONO % (test code 6.2 % = 5905-5) EOS % (test code = 4.1 % 713-8) BASO % (test code 0.5 % = 706-2) GRAN MAT 2.75 10*3/uL 1.88-7.09 x10^3(ANC) (test code = 1994270282) IMM GRAN x10^3 <0.03 0-0.06 (test code = 6051611730) LYMPH x10^3 (test 2.30 10*3/uL 1.32-3.29 code = 731-0) MONO x10^3 (test 0.35 10*3/uL 0.33-0.92 code = 742-7) EOS x10^3 (test 0.23 10*3/uL 0.03-0.39 code = 711-2) BASO x10^3 (test 0.03 10*3/uL 0.01-0.07 code = 704-7) [facility] GLUCOSE (AUTOMATED)2019-12-20 02:08:00 Test Item Value Reference Range Interpretation Comments POCT GLU (test code = 3548956081) 142 mg/dL 70-110 H Lab Interpretation (test code = Abnormal 10553-9) [facility] GLUCOSE (AUTOMATED)2019-12-19 22:06:00 Test Item Value Reference Range Interpretation Comments POCT GLU (test code = 6925977282) 113 mg/dL 70-110 H Lab Interpretation (test code = Abnormal 92387-4) [facility] GLUCOSE (AUTOMATED)2019-12-19 17:01:00 Test Item Value Reference Range Interpretation Comments POCT GLU (test code = 2051918943) 151 mg/dL 70-110 H Lab Interpretation (test code = Abnormal 53509-2) [facility] GLUCOSE (AUTOMATED)2019-12-19 13:26:00 Test Item Value Reference Range Interpretation Comments POCT GLU (test code = 6177611567) 126 mg/dL 70-110 H Lab Interpretation (test code = Abnormal 48385-1) [facility]2020-09-29 12:27:00 Test Item Value Reference Range Interpretation Comments MAGNESIUM (test code = 0271561784) 1.8 mg/dL 1.7-2.4 Lab Interpretation (test code = Normal 90041-3) [facility] Metabolic Panel (NA, K, CL, CO2, GLUCOSE, BUN, CREATININE, CA)2019-12-19 09:56:00 Test Item Value Reference Range Interpretation Comments NA (test code = 135 mmol/L 135-145 2598409576) K (test code = 4.1 mmol/L 3.5-5 8253705196) CL (test code = 102 mmol/L 98-108 3503469650) CO2 TOTAL (test code = 27 mmol/L 23-31 3256041604) AGAP (test code = 2-16 1063054858) BUN (test code = 13 mg/dL 7-23 5345529264) GLUCOSE (test code = 110 mg/dL 70-110 0179162714) CREATININE (test code = 0.62 mg/dL 0.5-1.04 5647025693) CALCIUM (test code = 8.4 mg/dL 8.6-10.6 L 6913028735) eGFR Calculation mL/min/1.73m2 (Non-) (test code = 1255829750) eGFR Calculation mL/min/1.73m2 () (test code = 1253783974) LAKESHIA (test code = LAKESHIA) Association of [...] tests). Lab Interpretation Abnormal (test code = 59584-9) [facility] CHEST PULMONARY [id number] 03:11:10 1. ?Suboptimal study. Enhancement is inadequate, [...] Preliminary Report Dictated by Resident: Garcia Paris ?MD Cynthia., have reviewed this study and agree with [...] reviewed this study and agree with theabove report.[facility] GLUCOSE (AUTOMATED)2019-12-19 01:48:00 Test Item Value Reference Range Interpretation Comments POCT GLU (test code = 4852717519) 122 mg/dL 70-110 H Lab Interpretation (test code = Abnormal 39391-3) [facility] GLUCOSE (AUTOMATED)2019-12-18 17:33:00 Test Item Value Reference Range Interpretation Comments POCT GLU (test code = 5735268866) 153 mg/dL 70-110 H Lab Interpretation (test code = Abnormal 24876-1) [facility] GLUCOSE (AUTOMATED)2019-12-18 13:12:00 Test Item Value Reference Range Interpretation Comments POCT GLU (test code = 1813959318) 119 mg/dL 70-110 H Lab Interpretation (test code = Abnormal 98942-3) [facility] Metabolic Panel (NA, K, CL, CO2, GLUCOSE, BUN, CREATININE, CA)2019-12-18 11:03:00 Test Item Value Reference Range Interpretation Comments NA (test code = 136 mmol/L 135-145 9496304550) K (test code = 4.4 mmol/L 3.5-5 2778539780) CL (test code = 103 mmol/L 98-108 6906827076) CO2 TOTAL (test code = 26 mmol/L 23-31 3540985764) AGAP (test code = 2-16 8604919126) BUN (test code = 17 mg/dL 7-23 4810129754) GLUCOSE (test code = 123 mg/dL 70-110 H 6016847304) CREATININE (test code = 0.74 mg/dL 0.5-1.04 4973063654) CALCIUM (test code = 8.9 mg/dL 8.6-10.6 5202208976) eGFR Calculation mL/min/1.73m2 (Non-) (test code = 7312569228) eGFR Calculation mL/min/1.73m2 () (test code = 2281592416) LAKESHIA (test code = LAKESHIA) Association of [...] tests). Lab Interpretation Abnormal (test code = 91142-5) [facility] [id number] 06:31:00 Test Item Value Reference Range Interpretation Comments TROPONIN I (test 0.023 ng/mL See_Comment Hemolyzed code = 3771594990) specimen [Automated message] The system which generated [...] ? Lab Interpretation Normal (test code = 95693-6) [facility] with [id number] 06:05:00 Test Item Value Reference Range Interpretation Comments WBC (test code = See_Comment [Automated message] 7192-2) The system LEAFER generated this result transmitted ref erence range: 4.30 - 1 1.10 10*3/?L. The re ference range was not u sed to interpret this result as normal/abnor mal. RBC (test code = See_Comment [Automated message] 879-8) The system LEAFER generated this result transmitted ref erence range: [...] RDW-SD (test code 44.8 fL 39-49.9 = 41062-3) RDW-CV (test code 13.9 % 12-15.5 = 788-0) PLT (test code = See_Comment [Automated message] 707-3) The system LEAFER generated this result transmitted ref erence range: 166 - 35 8 10*3/?L. The re ference range was not u sed to interpret this result as normal/abnor mal. MPV (test code = 10.1 fL 9.5-12.9 53280-8) NRBC/100 WBC (test See_Comment [Automat ed message] code = 8653368587) The syste m which generated this result transmitted ref erence range: 0.0 - 10 .0 /100 WBCs. The refer ence range was not u sed to interpret this result as normal/abnor mal. NRBC x10^3 (test <0.01 See_Comment [Automated message] code = 8419989351) The syste m which generated this result transmitted ref erence range: 10*3/?L. The reference range was not used to interpr et this result as normal/abnormal . GRAN MAT (NEUT) % 61.6 % (test code = 770-8) IMM GRAN % (test 0.10 % code = 9957856103) LYMPH % (test code 29.1 % = 736-9) MONO % (test code 6.4 % = 5905-5) EOS % (test code = 2.4 % 713-8) BASO % (test code 0.4 % = 706-2) GRAN MAT 4.41 10*3/uL 1.88-7.09 x10^3(ANC) (test code = 7764132642) IMM GRAN x10^3 <0.03 0-0.06 (test code = 1233506893) LYMPH x10^3 (test 2.09 10*3/uL 1.32-3.29 code = 731-0) MONO x10^3 (test 0.46 10*3/uL 0.33-0.92 code = 742-7) EOS x10^3 (test 0.17 10*3/uL 0.03-0.39 code = 711-2) BASO x10^3 (test 0.03 10*3/uL 0.01-0.07 code = 704-7) [facility]cos[facility] Hemoglobin (A1C)2019-12-18 03:33:00 Test Item Value Reference Range Interpretation Comments HGB A1C (test code = 6.4 % 4-6 H 4548-4) LAKESHIA (test code = LAKESHIA) %A1C (NGSP) Interpretation (ADA)4.8-5.6 ? ? Normal or (Non-Diabetic Range)5.7-6.4 ? ? Increased Risk (Pre-Diabetic)>6.5 ?Diabetes Indicated Lab Interpretation Abnormal (test code = 23587-6) [facility]-[id number] 23:23:00 Test Item Value Reference Interpretation Comments Range D-DIMER (test code = See_Comment H [Autom ated 1149453669) message] The system which generated this result [...] diagnosis. Lab Interpretation Abnormal (test code = 26180-1) [facility] / [facility] - DRUG SCREEN [id number] 21:44:00 Test Item Value Reference Range Interpretation Comments BENZO U (test code = Negative Negative 5213067932) CATARINO U (test code = Negative Negative 3325262657) AMPHET (test code = Negative Negative 5955182278) THC (test code = Negative Negative 9805144061) METHADONE (test code = Negative Negative 8876164239) Meth U (test code = Negative Negative 3455104800) OPIATES (test code = Negative Negative 1857454844) Cocaine Metabolite (test Negative Negative code = 7195642154) PROPOXY (test code = Negative Negative 2605466503) Tric U (test code = Negative Negative 7790202753) PCP (test code = Negative Negative 0810343849) OXYCOD (test code = Negative Negative 2182110371) LAKESHIA (test code = LAKESHIA) Urine Drug [...] testing). Lab Interpretation (test Normal code = 68096-6) [id number]:32[facility]00 Test Item Value Reference Range Interpretation Comments TROPONIN I (test 0.003 ng/mL See_Comment [Automated code = 7439584706) message] The system which generated this result [...] ? Lab Interpretation Normal (test code = 38739-1) [facility]landN-TERMINAL [id number] 21:29:00 Test Item Value Reference Range Interpretation Comments NT-proBNP (test code 156 pg/mL See_Comment H [Autom ated = 8900872652) message] The system which generated this result transmitted reference range : <=125. The reference range was not used to interpret this result as normal/abnormal . LAKESHIA (test code = LAKESHIA) Biotin has been reported to cause a negative bias, interpret results relative to patient's use of biotin. Lab Interpretation Abnormal (test code = 10463-8) [facility]landPREGNANCY TEST, [id number] 21:28:00 Test Item Value Reference Range Interpretation Comments PREG SERUM (test code Negative = 5684479614) LAKESHIA (test code = LAKESHIA) Less than 10 IU/L. ?If low titer or ectopic is suspected, resubmit specimen in 48-72 hours. [facility]landXR CHEST 1 [id number] 21:22:41CHEST ONE VIEW HISTORY: ?Chest pain TECHNIQUE: [...] or pneumothorax is seen.CONCLUSIONS: No acute cardiopulmonary disease.[facility]landMAGNESIUM 2019-12-17 21:21:00 Test Item Value Reference Range Interpretation Comments MAGNESIUM (test code = 6707527748) 1.6 mg/dL 1.7-2.4 L Lab Interpretation (test code = Abnormal 44502-9) [facility]landCOVID-19 (ID NOW RAPID TESTING)2019-12-17 21:21:00 Test Item Value Reference Range Interpretation Comments SARS-CoV-2 Rapid ID NOW Not Detected Not Detected (test code = 26343-2) LAKESHIA (test code = LAKESHIA) ID NOW COVID-19 Assay is an isothermal nucleic acid amplification test intended for the qualitative detection of nucleic acid from SARS-CoV-2 viral RNA in nasopharyngeal (TILE SPRAYER) specimens. It is used under Emergency Use [...] indicated. Lab Interpretation Normal (test code = 92008-8) [facility]. METABOLIC PANEL (93625)2019-12-17 21:20:00 Test Item Value Reference Range Interpretation Comments NA (test code = 135 mmol/L 135-145 1436974489) K (test code = 3.9 mmol/L 3.5-5 0309044438) CL (test code = 100 mmol/L 98-108 8299063511) CO2 TOTAL (test code = 23 mmol/L 23-31 7109830253) AGAP (test code = 2-16 7825701677) BUN (test code = 11 mg/dL 7-23 3803014068) GLUCOSE (test code = 181 mg/dL 70-110 H 9126058302) CREATININE (test code = 0.61 mg/dL 0.5-1.04 3885329038) TOTAL BILI (test code = 0.5 mg/dL 0.1-1.5 1759190156) CALCIUM (test code = 9.7 mg/dL 8.6-10.6 5018726833) T PROTEIN (test code = 7.9 g/dL 6.3-8.2 3281404320) ALBUMIN (test code = 4.0 g/dL 3.5-5 9097419422) ALK PHOS (test code = 121 U/L 34-122 1882078906) ALTv (test code = 24 U/L 5-35 1742-6) AST(SGOT) (test code = 25 U/L 13-40 4413406433) eGFR Calculation mL/min/1.73m2 (Non-) (test code = 4423266552) eGFR Calculation mL/min/1.73m2 () (test code = 9896687730) LAKESHIA (test code = LAKESHIA) Association of [...] tests). Lab Interpretation Abnormal (test code = 34197-6) [facility]landaPTT2020-09-27 21:19:00 Test Item Value Reference Range Interpretation Comments APTT Patient (test See_Comment [Automat ed code = 3173-2) message] The system which generated this result transmitted reference range : 23 - 38 Seconds . The reference range was not used to interpr et this result as normal/abnormal . LAKESHIA (test code = LAKESHIA) [facility] patient population mean normal value for aPTT is 30 seconds. Lab Interpretation Normal (test code = 03851-2) [facility]landPROTHROMBIN TIME / [id number] 21:17:00 Test Item Value Reference Range Interpretation Comments PROTIME PATIENT (test See_Comment [Auto mated message] code = 5964-2) The system Turning Art generated this result transmitted ref erence range: 12.0 - 1 4.7 Seconds. The re ference range was not u sed to interpret this result as normal/abnor mal. INR (test code = 6301-6) Nor mal INR <1.1; Warfarin Therap eutic range 2.0 to 3. 0 or 2.5 to 3.5, dep ending upon the indica tions. Lab Interpretation (test Normal code = 45110-9) [facility]landURINALYSIS2020-09-27 21:12:00 Test Item Value Reference Range Interpretation Comments APPEARANCE (test code = Clear Clear 2467045858) COLOR (test code = Yellow Yellow 7440274755) PH (test code = 4.8-8.0 5466744916) SP GRAVITY (test code = 1.003-1.030 1640539136) GLU U QUAL (test code = Normal Normal 1778415610) BLOOD (test code = Negative Negative 6182286234) KETONES (test code = Negative Negative 2392020044) PROTEIN (test code = Negative Negative 2887-8) UROBILIN (test code = Normal Normal 4357167934) BILIRUBIN (test code = Negative Negative 4111780493) NITRITE (test code = Negative Negative 4466692016) LEUK CORNELL (test code = 25/uL Negative A 3840460960) RBC/HPF (test code = See_Comment [Autom ated message] 3994181170) The system LEAFER generated this result transmitted ref erence range: 0 - 3 HP F. The reference range was not used to int erpret this result as normal/abnormal . WBC/HPF (test code = See_Comment [Autom ated message] 1467236100) The system LEAFER generated this result transmitted ref erence range: 0 - 5 HP F. The reference range was not used to int erpret this result as normal/abnormal . BACTERIA (test code = Few Negative A 4755814864) MUCOUS (test code = Slight Negative LPF A 7996307561) SQ EPITH (test code = HPF 6578228063) Lab Interpretation (test Abnormal code = 59227-4) [facility] WITH [id number] 21:05:00 Test Item Value Reference Range Interpretation Comments WBC (test code = See_Comment [Automated 3090-2) message] The sy stem which generated this [...] RDW-SD (test code = 42.1 fL 39-49.9 64901-2) RDW-CV (test code = 13.5 % 12-15.5 788-0) PLT (test code = See_Comment [Automated 777-3) message] The sy stem which generated this result transmitted reference range : 166 - 358 10*3/ ?L. The reference r alee was not used to interpret this result as normal/abnormal . MPV (test code = 9.7 fL 9.5-12.9 82573-0) NRBC/100 WBC (test See_Comment [Automat ed code = 5882210743) message] The system which generated this result transmitted reference range : 0.0 - 10.0 /100 WBCs. The refer ence range was not u sed to interpret th is result as normal/abnormal . NRBC x10^3 (test code <0.01 See_Comment [Auto mated = 9233181665) message] The s ystem which generated this result transmitted reference range : 10*3/?L. The reference range was not used to interpret this result as normal/abnormal . GRAN MAT (NEUT) % 55.8 % (test code = 770-8) IMM GRAN % (test code 0.40 % = 0909140799) LYMPH % (test code = 34.0 % 736-9) MONO % (test code = 5.0 % 5905-5) EOS % (test code = 4.1 % 713-8) BASO % (test code = 0.7 % 706-2) GRAN MAT x10^3(ANC) 3.15 10*3/uL 1.88-7.09 (test code = 0969591078) IMM GRAN x10^3 (test <0.03 0-0.06 code = 0321854819) LYMPH x10^3 (test code 1.92 10*3/uL 1.32-3.29 = 731-0) MONO x10^3 (test code 0.28 10*3/uL 0.33-0.92 L = 742-7) EOS x10^3 (test code = 0.23 10*3/uL 0.03-0.39 711-2) BASO x10^3 (test code 0.04 10*3/uL 0.01-0.07 = 704-7) Lab Interpretation Abnormal (test code = 33914-0) [facility]landCT THORAX W WO [id number] 18:20:46 Saddle pulmonary embolus extending into the [...] CT of the chest was performed at [facility] with sagittal, coronal and coronal MIP [...] CT of the chest was performed at [facility] with sagittal, coronal and coronal MIP [...] reviewed this study and agree with the abovereport.[facility]landPOCT GLUCOSE (AUTOMATED) 2019-10-23 16:46:00 Test Item Value Reference Range Interpretation Comments POCT GLU (test code = 8486271988) 148 mg/dL 70-110 H Lab Interpretation (test code = Abnormal 80258-1) [facility]landCT ABDOMEN PELVIS W [id number] 15:20:31*Due to large patient body habitus, portions of the abdomen and pelvisextend outside the muvcr-fw-oucz, including portions of the peritonealcavity in the [...] theright anterior peritoneal cavity, extend outside the gulhy-oo-ahlc due tolarge patient body habitus. This also creates significant streak artifact,limiting in particular evaluation of the liver. Thoracic: Pulmonary emboli are again visualized at the lung bases, similarin distribution to comparison CT [facility]at[facility]: Limited evaluation due to artifa ct. Liver is enlargedmeasuring 23 cm in length. No focal lesion detected. Gallbladder iscontracted. No biliary dilation. Pancreas: No abnormality identified in the pancreas. Spleen: Mild splenomegaly, measuring up to 14.5 cm. Adrenals: No abnormality identified in either adrenal gland. Genitourinary: S ymmetric enhancement. Mild distention of both renal pelves.The right kidney is rotated in a horizontal plane, possibly due to theenlarged adjacent liver. The bladder is unremarkable. Uterus appearstethered to the anterior abdominal wall, likely sequela of prior surgery,and is otherwise unremarkable. No adnexal mass. Gastrointestinal: Lap band present with cord at right of midline in theupper abdomen,partially visualized. No evidence of bowel obstruction orperienteric inflammation. Vascular/Lymphatics: No enlarged lymph nodes by CT size criteria. Abdominalaorta is normal in caliber. MSK/Body Wall: No concerning bony lesion identified. Peritoneum/Other: No extraluminal air. No extraluminal fluid. [facility], Radiant Results Inft User - 10/23/2019 10:21 AM CDTEXAM: CT ABDOMEN PELVIS W CONTRASTHISTORY: 39year -old woman with generalized acute abdominal pain.TECHNIQUE: Contrast - IV contrast was given, no oral contrast was given Portal venous phase - abdomen and pelvisReconstructions - coronal and sagittal planesCOMPARISON: CT chest, 10/20/2019 and 08/14/2019FINDINGS:Statements: Portions of the patient'sabdomen, including portions of theright anterior peritoneal cavity, extend outside the dcdhr-da-xbgrssv tolarge patient body habitus. This also creates significant streak artifact,limiting in particular evaluation of the liver.Thoracic: Pulmonary emboli are again visualized at the lung bases, similarin distribution to comparison CT [facility]atobiliary: Limited evaluation due to artifact. Liver is enlargedmeasuring 23 cm in length. No focal lesion detected. Gallbladder iscontracted. No biliary dilation.Pancreas: No abnormality identified in the pancreas.Spleen: Mild splenomegaly, measuring up to 14.5 cm. Adrenals: No abnormality identified in either adrenal gland. Genitourinary: Symmetric enhancement. Mild distention of both renal pelves.The rightkidney is rotated in a horizontal plane, possibly due to theenlarged adjacent liver. The bladder is u nremarkable. Uterus appearstethered to the anterior abdominal wall, likely sequela of prior surgery,and is otherwise unremarkable. No adnexal mass.Gastrointestinal: Lap band present with cord at right of midline in theupper abdomen, partially visualized. No evidence of bowel obstruction orperienteric inflammation. Vascular/Lymphatics: No enlarged lymph nodes by CT size criteria. Abdominalaorta is normal in caliber.MSK/Body Wall: No concerning bony lesion identified.Peritoneum/Other: No extraluminal air. No extraluminal fluid.IMPRESSION*Due to large patient body habitus, portions of the abdomen and pelvisextend outside the lunmv-hh-xsuo, including portions of the peritonealcavity in the anterior right abdomen.1. No acute abnormality identified in the abdomen or pelvis.2. Similar appearance of pulmonary emboli at lung bases as compared torecent CTA (10/20/2019) from outside facility.3. Lap band present.4. Hepatomegaly.5. Mild splenomegaly.[facility]landPODC GLUCOSE (AUTOMATED)2019-10-23 13:18:00 Test Item Value Reference Range Interpretation Comments POCT GLU (test code = 3035811237) 106 mg/dL 70-110 Lab Interpretation (test code = Normal 15832-1) [facility]landBASI METABOLIC PANEL (NA, K, CL, CO2, GLUCOSE, BUN, CREATININE, CA)2019-10-23 10:35:00 Test Item Value Reference Range Interpretation Comments NA (test code = 136 mmol/L 135-145 6686529770) K (test code = 4.6 mmol/L 3.5-5 2381806852) CL (test code = 102 mmol/L 98-108 9464418767) CO2 TOTAL (test code = 28 mmol/L 23-31 4755595293) AGAP (test code = 2-16 2639819851) BUN (test code = 11 mg/dL 7-23 2148847757) GLUCOSE (test code = 113 mg/dL 70-110 H 2691561306) CREATININE (test code = 0.57 mg/dL 0.5-1.04 6889606750) CALCIUM (test code = 8.4 mg/dL 8.6-10.6 L 4825210543) eGFR Calculation mL/min/1.73m2 (Non-) (test code = 1803316779) eGFR Calculation mL/min/1.73m2 () (test code = 1266244270) LAKESHIA (test code = LAKESHIA) Association of [...] tests). Lab Interpretation Abnormal (test code = 12786-6) [facility]landaPTT2020-08-03 10:18:00 Test Item Value Reference Range Interpretation Comments APTT Patient (test code = See_Comment [ Automated message] 3173-2) The system whic h generated this result transmitted ref erence range: 26 - 36 Seconds. The re ference range was not u sed to interpret this result as normal/abnor mal. Lab Interpretation (test Normal code = 81378-5) [facility] MainlandPROTHROMBIN TIME / [id number] 10:18:00 Test Item Value Reference Range Interpretation [...] tions. Lab Interpretation (test Abnormal code = 82082-6) [facility]landCB WITH [id number] 10:09:00 Test Item Value Reference Range Interpretation Comments WBC (test code = See_Comment [Automated 4690-2) message] The sy stem which generated this result transmitted reference range : 4.30 - 11.10 10*3/?L. The reference range was not used to interpret this result as normal/abnormal . RBC (test code = See_Comment L [Automated 149-8) message] The sy stem which generated this [...] RDW-SD (test code = 45.1 fL 39-49.9 10270-7) RDW-CV (test code = 13.9 % 12-15.5 788-0) PLT (test code = See_Comment [Automated 777-3) message] The sy stem which generated this result transmitted reference range : 166 - 358 10*3/ ?L. The reference r alee was not used to interpret this result as normal/abnormal . MPV (test code = 10.3 fL 9.5-12.9 35912-9) NRBC/100 WBC (test See_Comment [Automat ed code = 1325877422) message] The system which generated this result transmitted reference range : 0.0 - 10.0 /100 WBCs. The refer ence range was not u sed to interpret th is result as normal/abnormal . NRBC x10^3 (test code <0.01 See_Comment [Auto mated = 6297011166) message] The s ystem which generated this result transmitted reference range : 10*3/?L. The reference range was not used to interpret this result as normal/abnormal . GRAN MAT (NEUT) % 48.5 % (test code = 770-8) IMM GRAN % (test code 0.40 % = 9391554230) LYMPH % (test code = 37.9 % 736-9) MONO % (test code = 5.9 % 5905-5) EOS % (test code = 6.6 % 713-8) BASO % (test code = 0.7 % 706-2) GRAN MAT x10^3(ANC) 2.63 10*3/uL 1.88-7.09 (test code = 9993637170) IMM GRAN x10^3 (test <0.03 0-0.06 code = 9081651170) LYMPH x10^3 (test code 2.06 10*3/uL 1.32-3.29 = 731-0) MONO x10^3 (test code 0.32 10*3/uL 0.33-0.92 L = 742-7) EOS x10^3 (test code = 0.36 10*3/uL 0.03-0.39 711-2) BASO x10^3 (test code 0.04 10*3/uL 0.01-0.07 = 704-7) Lab Interpretation Abnormal (test code = 99877-3) [facility] GLUCOSE (AUTOMATED)2019-10-23 01:50:00 Test Item Value Reference Range Interpretation Comments POCT GLU (test code = 2540461024) 135 mg/dL 70-110 H Lab Interpretation (test code = Abnormal 67698-9) [facility] GLUCOSE (AUTOMATED)2019-10-22 22:01:00 Test Item Value Reference Range Interpretation Comments POCT GLU (test code = 2939256077) 115 mg/dL 70-110 H Lab Interpretation (test code = Abnormal 12323-8) [facility] METABOLIC PANEL (NA, K, CL, CO2, GLUCOSE, BUN, CREATININE, CA)2019-10-22 17:32:00 Test Item Value Reference Range Interpretation Comments NA (test code = 135 mmol/L 135-145 1092468721) K (test code = 3.9 mmol/L 3.5-5 6772538899) CL (test code = 103 mmol/L 98-108 3280747572) CO2 TOTAL (test code = 25 mmol/L 23-31 4589175077) AGAP (test code = 2-16 3058909325) BUN (test code = 13 mg/dL 7-23 8376125244) GLUCOSE (test code = 170 mg/dL 70-110 H 4394877460) CREATININE (test code = 0.62 mg/dL 0.5-1.04 2256975017) CALCIUM (test code = 9.1 mg/dL 8.6-10.6 5902709354) eGFR Calculation mL/min/1.73m2 (Non-) (test code = 8205076715) eGFR Calculation mL/min/1.73m2 () (test code = 3759570475) LAKESHIA (test code = LAKESHIA) Association of [...] tests). Lab Interpretation Abnormal (test code = 67397-2) [facility]aPTT2020-08-02 17:17:00 Test Item Value Reference Range Interpretation Comments APTT Patient (test code = See_Comment [ Automated message] 3173-2) The system LEAFER generated this result transmitted ref erence range: 26 - 36 Seconds. The re ference range was not u sed to interpret this result as normal/abnor mal. Lab Interpretation (test Normal code = 87899-1) [facility] MainlandPROTHROMBIN TIME / [id number] 17:17:00 Test Item Value Reference Range Interpretation Comments PROTIME PATIENT (test See_Comment H [Auto mated message] code = 5964-2) The system [employer] generated this result transmitted ref erence range: 10.1 - 1 2.6 Seconds. The reference range was not used to int erpret this result as normal/abnormal . INR (test code = 6301-6) Nor mal INR <1.1; Warfarin Therap eutic range 2.0 to 3. 0 or 2.5 to 3.5, dep ending upon the indica tions. Lab Interpretation (test Abnormal code = 89040-6) [facility]landCBC WITH [id number] 17:09:00 Test Item Value Reference Range Interpretation Comments WBC (test code = See_Comment [Automated message] 6690-2) The system LEAFER generated this result transmitted ref erence range: 4.30 - 1 1.10 10*3/?L. The re ference range was not u sed to interpret this result as normal/abnor mal. RBC (test code = See_Comment [Automated message] 789-8) The system LEAFER generated this result transmitted ref erence range: [...] RDW-SD (test code 43.8 fL 39-49.9 = 73616-9) RDW-CV (test code 13.8 % 12-15.5 = 788-0) PLT (test code = See_Comment [Automated message] 777-3) The system LEAFER generated this result transmitted ref erence range: 166 - 35 8 10*3/?L. The re ference range was not u sed to interpret this result as normal/abnor mal. MPV (test code = 9.8 fL 9.5-12.9 72988-7) NRBC/100 WBC (test See_Comment [Automat ed message] code = 0821091225) The syste m which generated this result transmitted ref erence range: 0.0 - 10 .0 /100 WBCs. The refer ence range was not u sed to interpret this result as normal/abnor mal. NRBC x10^3 (test <0.01 See_Comment [Automated message] code = 1252007955) The syste m which generated this result transmitted ref erence range: 10*3/?L. The reference range was not used to interpr et this result as normal/abnormal . GRAN MAT (NEUT) % 54.4 % (test code = 770-8) IMM GRAN % (test 0.30 % code = 6752968705) LYMPH % (test code 32.8 % = 736-9) MONO % (test code 5.8 % = 5905-5) EOS % (test code = 6.0 % 713-8) BASO % (test code 0.7 % = 706-2) GRAN MAT 3.16 10*3/uL 1.88-7.09 x10^3(ANC) (test code = 2223363673) IMM GRAN x10^3 <0.03 0-0.06 (test code = 7567647296) LYMPH x10^3 (test 1.91 10*3/uL 1.32-3.29 code = 731-0) MONO x10^3 (test 0.34 10*3/uL 0.33-0.92 code = 742-7) EOS x10^3 (test 0.35 10*3/uL 0.03-0.39 code = 711-2) BASO x10^3 (test 0.04 10*3/uL 0.01-0.07 code = 704-7) [facility] GLUCOSE (AUTOMATED)2019-10-22 16:38:00 Test Item Value Reference Range Interpretation Comments POCT GLU (test code = 5057801053) 189 mg/dL 70-110 H Lab Interpretation (test code = Abnormal 01987-9) [facility] GLUCOSE (AUTOMATED)2019-10-22 13:30:00 Test Item Value Reference Range Interpretation Comments POCT GLU (test code = 3053261051) 116 mg/dL 70-110 H Lab Interpretation (test code = Abnormal 03795-6) [facility] GLUCOSE (AUTOMATED)2019-10-22 01:25:00 Test Item Value Reference Range Interpretation Comments POCT GLU (test code = 0362772445) 159 mg/dL 70-110 H Lab Interpretation (test code = Abnormal 77637-8) [facility] [id number] 01:07:00 Test Item Value Reference Range Interpretation Comments TROPONIN I (test 0.004 ng/mL See_Comment [Automated code = 4407725201) message] The system which generated this result [...] ? Lab Interpretation Normal (test code = 59471-6) [facility] GLUCOSE (AUTOMATED)2019-10-21 22:36:00 Test Item Value Reference Range Interpretation Comments POCT GLU (test code = 5058112176) 106 mg/dL 70-110 Lab Interpretation (test code = Normal 33553-6) [facility] GLUCOSE (AUTOMATED)2019-10-21 18:34:00 Test Item Value Reference Range Interpretation Comments POCT GLU (test code = 3417669171) 161 mg/dL 70-110 H Lab Interpretation (test code = Abnormal 21918-4) [facility] GLUCOSE (AUTOMATED)2019-10-21 18:32:00 Test Item Value Reference Range Interpretation Comments POCT GLU (test code = 8157099380) 159 mg/dL 70-110 H Lab Interpretation (test code = Abnormal 24032-1) [facility] [id number] 17:56:00 Test Item Value Reference Range Interpretation Comments TROPONIN I (test 0.018 ng/mL See_Comment Hemolyzed code = 5960106667) specimen [Automated message] The system which generated [...] ? Lab Interpretation Normal (test code = 54843-2) [facility] [id number] 10:10:00 Test Item Value Reference Range Interpretation Comments MAGNESIUM (test code = 3209605134) 1.8 mg/dL 1.7-2.4 Lab Interpretation (test code = Normal 63187-6) [facility]OLIC PANEL (NA, K, CL, CO2, GLUCOSE, BUN, CREATININE, CA)2019-10-21 10:10:00 Test Item Value Reference Range Interpretation Comments NA (test code = 138 mmol/L 135-145 7801917932) K (test code = 4.4 mmol/L 3.5-5 9405381044) CL (test code = 105 mmol/L 98-108 7471653502) CO2 TOTAL (test code = 25 mmol/L 23-31 7369993318) AGAP (test code = 2-16 2386354909) BUN (test code = 12 mg/dL 7-23 1781159819) GLUCOSE (test code = 124 mg/dL 70-110 H 7835300938) CREATININE (test code = 0.60 mg/dL 0.5-1.04 7626718783) CALCIUM (test code = 8.7 mg/dL 8.6-10.6 6400021241) eGFR Calculation mL/min/1.73m2 (Non-) (test code = 8695842329) eGFR Calculation mL/min/1.73m2 () (test code = 8616954484) LAKESHIA (test code = LAKESHIA) Association of [...] tests). Lab Interpretation Abnormal (test code = 13551-8) [facility] 10:05:00 Test Item Value Reference Range Interpretation Comments APTT Patient (test code = See_Comment [ Automated message] 3173-2) The system LEAFER generated this result transmitted ref erence range: 26 - 36 Seconds. The re ference range was not u sed to interpret this result as normal/abnor mal. Lab Interpretation (test Normal code = 96507-1) [facility]landPROTHROMBIN TIME / [id number] 10:05:00 Test Item Value Reference Range Interpretation [...] tions. Lab Interpretation (test Abnormal code = 52680-0) [facility] WITH [id number] 09:56:00 Test Item Value Reference Range Interpretation Comments WBC (test code = See_Comment [Automated 1390-2) message] The sy stem which generated this result transmitted reference range : 4.30 - 11.10 10*3/?L. The reference range was not used to interpret this result as normal/abnormal . RBC (test code = See_Comment [Automated 199-8) message] The sy stem which generated this [...] RDW-SD (test code = 44.4 fL 39-49.9 73072-2) RDW-CV (test code = 13.8 % 12-15.5 788-0) PLT (test code = See_Comment [Automated 777-3) message] The sy stem which generated this result transmitted reference range : 166 - 358 10*3/ ?L. The reference r alee was not used to interpret this result as normal/abnormal . MPV (test code = 9.8 fL 9.5-12.9 34853-8) NRBC/100 WBC (test See_Comment [Automat ed code = 0489892178) message] The system which generated this result transmitted reference range : 0.0 - 10.0 /100 WBCs. The refer ence range was not u sed to interpret th is result as normal/abnormal . NRBC x10^3 (test code <0.01 See_Comment [Auto mated = 4524401342) message] The s ystem which generated this result transmitted reference range : 10*3/?L. The reference range was not used to interpret this result as normal/abnormal . GRAN MAT (NEUT) % 46.4 % (test code = 770-8) IMM GRAN % (test code 0.40 % = 4714485139) LYMPH % (test code = 37.8 % 736-9) MONO % (test code = 7.7 % 5905-5) EOS % (test code = 7.0 % 713-8) BASO % (test code = 0.7 % 706-2) GRAN MAT x10^3(ANC) 2.52 10*3/uL 1.88-7.09 (test code = 1364900936) IMM GRAN x10^3 (test <0.03 0-0.06 code = 8258478825) LYMPH x10^3 (test code 2.05 10*3/uL 1.32-3.29 = 731-0) MONO x10^3 (test code 0.42 10*3/uL 0.33-0.92 = 742-7) EOS x10^3 (test code = 0.38 10*3/uL 0.03-0.39 711-2) BASO x10^3 (test code 0.04 10*3/uL 0.01-0.07 = 704-7) Lab Interpretation Abnormal (test code = 62472-1) [facility] GLUCOSE (AUTOMATED)2019-10-21 03:16:00 Test Item Value Reference Range Interpretation Comments POCT GLU (test code = 4283207152) 108 mg/dL 70-110 Lab Interpretation (test code = Normal 99447-0) [facility] GLUCOSE (AUTOMATED)2019-10-20 22:36:00 Test Item Value Reference Range Interpretation Comments POCT GLU (test code = 2902769428) 141 mg/dL 70-110 H Lab Interpretation (test code = Abnormal 56573-2) [facility] [id number] 21:48:00 Test Item Value Reference Range Interpretation Comments TROPONIN I (test 0.004 ng/mL See_Comment [Automated code = 6926978383) message] The system which generated this result [...] ? Lab Interpretation Normal (test code = 72043-5) [facility] GLUCOSE (AUTOMATED)2019-10-20 19:50:00 Test Item Value Reference Range Interpretation Comments POCT GLU (test code = 4590241681) 288 mg/dL 70-110 H Lab Interpretation (test code = Abnormal 27266-7) [facility]OVID[facility] (ID NOW RAPID TESTING)2019-10-20 14:42:00 Test Item Value Reference Range Interpretation Comments SARS-CoV-2 Rapid ID NOW Not Detected Not Detected (test code = 53012-0) LAKESHIA (test code = LAKESHIA) ID NOW COVID-19 Assay is an isothermal nucleic acid amplification test intended for the qualitative detection of nucleic acid from SARS-CoV-2 viral RNA in nasopharyngeal (TILE SPRAYER) specimens. It is used under Emergency Use [...] indicated. Lab Interpretation Normal (test code = 54082-1) [facility] METABOLIC PANEL (NA, K, CL, CO2, GLUCOSE, BUN, CREATININE, CA)2019-10-20 14:30:00 Test Item Value Reference Range Interpretation Comments NA (test code = 136 mmol/L 135-145 9402724462) K (test code = 3.9 mmol/L 3.5-5 8947989136) CL (test code = 105 mmol/L 98-108 9651243994) CO2 TOTAL (test code = 21 mmol/L 23-31 L 6168178868) AGAP (test code = 2-16 5557390845) BUN (test code = 13 mg/dL 7-23 9537669868) GLUCOSE (test code = 125 mg/dL 70-110 H 6015069506) CREATININE (test code = 0.67 mg/dL 0.5-1.04 2527486217) CALCIUM (test code = 8.7 mg/dL 8.6-10.6 0608774635) eGFR Calculation mL/min/1.73m2 (Non-) (test code = 7664657455) eGFR Calculation mL/min/1.73m2 () (test code = 1633826817) LAKESHIA (test code = LAKESHIA) Association of [...] tests). Lab Interpretation Abnormal (test code = 97692-5) [facility]landPhosphorus [id number] 14:30:00 Test Item Value Reference Range Interpretation Comments PHOSPHORUS (test code = 9711298217) 4.1 mg/dL 2.5-5 Lab Interpretation (test code = Normal 15436-3) [facility]landProthrombin Time / [id number] 14:25:00 Test Item Value Reference Range Interpretation Comments PROTIME PATIENT (test See_Comment [Auto mated message] code = 5964-2) The system Turning Art generated this result transmitted ref erence range: 10.1 - 1 2.6 Seconds. The re ference range was not u sed to interpret this result as normal/abnor mal. INR (test code = 6301-6) Nor mal INR <1.1; Warfarin Therap eutic range 2.0 to 3. 0 or 2.5 to 3.5, dep ending upon the indica tions. Lab Interpretation (test Normal code = 70168-5) [facility]PTT2020-07-31 14:25:00 Test Item Value Reference Range Interpretation Comments APTT Patient (test code See_Comment H [Au tomated message] = 3173-2) The system LEAFER generated this result transmitted ref erence range: 26 - 36 Seconds. The reference range was not used to int erpret this result as normal/abnormal . Lab Interpretation (test Abnormal code = 35977-0) [facility] WITH [id number] 14:09:00 Test Item Value Reference Range Interpretation Comments WBC (test code = See_Comment [Automated message] 6690-2) The system LEAFER generated this result transmitted ref erence range: 4.30 - 1 1.10 10*3/?L. The re ference range was not u sed to interpret this result as normal/abnor mal. RBC (test code = See_Comment [Automated message] 789-8) The system LEAFER generated this result transmitted ref erence range: [...] RDW-SD (test code 44.5 fL 39-49.9 = 99538-3) RDW-CV (test code 13.9 % 12-15.5 = 788-0) PLT (test code = See_Comment [Automated message] 777-3) The system LEAFER generated this result transmitted ref erence range: 166 - 35 8 10*3/?L. The re ference range was not u sed to interpret this result as normal/abnor mal. MPV (test code = 9.9 fL 9.5-12.9 72319-1) NRBC/100 WBC (test See_Comment [Automat ed message] code = 2651446074) The syste m which generated this result transmitted ref erence range: 0.0 - 10 .0 /100 WBCs. The refer ence range was not u sed to interpret this result as normal/abnor mal. NRBC x10^3 (test <0.01 See_Comment [Automated message] code = 3404197273) The syste m which generated this result transmitted ref erence range: 10*3/?L. The reference range was not used to interpr et this result as normal/abnormal . GRAN MAT (NEUT) % 44.1 % (test code = 770-8) IMM GRAN % (test 0.40 % code = 8220859962) LYMPH % (test code 43.4 % = 736-9) MONO % (test code 6.6 % = 5905-5) EOS % (test code = 5.0 % 713-8) BASO % (test code 0.5 % = 706-2) GRAN MAT 3.34 10*3/uL 1.88-7.09 x10^3(ANC) (test code = 4415292258) IMM GRAN x10^3 0.03 10*3/uL 0-0.06 (test code = 9317690063) LYMPH x10^3 (test 3.29 10*3/uL 1.32-3.29 code = 731-0) MONO x10^3 (test 0.50 10*3/uL 0.33-0.92 code = 742-7) EOS x10^3 (test 0.38 10*3/uL 0.03-0.39 code = 711-2) BASO x10^3 (test 0.04 10*3/uL 0.01-0.07 code = 704-7) [facility]2020-[facility]-11 01:51:00 Test Item Value Reference Range Interpretation Comments APPEARANCE (test code = Cloudy Clear A 4359843392) COLOR (test code = Yellow Yellow 8807603597) PH (test code = 4.8-8.0 3814371864) SP GRAVITY (test code = 1.003-1.030 9714549021) GLU U QUAL (test code = 500 mg/dL Normal A 0684109850) BLOOD (test code = Negative Negative 4515329934) KETONES (test code = Negative Negative 2443973883) PROTEIN (test code = 30 mg/dL Negative A 2887-8) UROBILIN (test code = Normal Normal 0431656645) BILIRUBIN (test code = Negative Negative 0476900840) NITRITE (test code = Negative Negative 3414042135) LEUK CORNELL (test code = Negative Negative 6904623962) RBC/HPF (test code = See_Comment [Autom ated message] 2122399387) The system LEAFER generated this result transmit kenroy reference range : 0 - 3 HPF. The refe rence range was not u sed to interpret th is result as normal/abnormal . WBC/HPF (test code = See_Comment H [Autom ated message] 5471969016) The system LEAFER generated this result transmit kenroy reference range : 0 - 5 HPF. The refe rence range was not u sed to interpret th is result as normal/abnormal . BACTERIA (test code = Moderate Negative A 4296275061) MUCOUS (test code = Slight Negative LPF A 8356872709) SQ EPITH (test code = HPF 6714921962) HYAL CAST (test code = See_Comment H [Aut omated message] 6812188816) The system LEAFER generated this result transmit kenroy reference range : <=2 LPF. The refere nce range was not u sed to interpret th is result as normal/abnormal . Lab Interpretation (test Abnormal code = 67097-2) [facility]2019-08-16 14:08:00 Test Item Value Reference Range Interpretation Comments POCT GLU (test code = 3829597095) 137 mg/dL 70-110 H Lab Interpretation (test code = Abnormal 49305-0) [facility]landBapsychiatric Metabolic Panel (NA, K, CL, CO2, GLUCOSE, BUN, CREATININE, CA)2019-08-16 10:20:00 Test Item Value Reference Range Interpretation Comments NA (test code = 136 mmol/L 135-145 9428385192) K (test code = 4.2 mmol/L 3.5-5 4321251256) CL (test code = 104 mmol/L 98-108 8184015203) CO2 TOTAL (test code = 26 mmol/L 23-31 6069670358) AGAP (test code = 2-16 1420260090) BUN (test code = 10 mg/dL 7-23 5109444412) GLUCOSE (test code = 116 mg/dL 70-110 H 8733828087) CREATININE (test code = 0.63 mg/dL 0.5-1.04 7687031551) CALCIUM (test code = 9.0 mg/dL 8.6-10.6 4891625806) eGFR Calculation mL/min/1.73m2 (Non-) (test code = 5956383539) eGFR Calculation mL/min/1.73m2 () (test code = 4818482301) LAKESHIA (test code = LAKESHIA) Association of [...] tests). Lab Interpretation Abnormal (test code = 04787-0) [facility]landMagnesium [id number] 10:20:00 Test Item Value Reference Range Interpretation Comments MAGNESIUM (test code = 9837005316) 1.8 mg/dL 1.7-2.4 Lab Interpretation (test code = Normal 05945-2) [facility] WITH [id number] 09:57:00 Test Item Value Reference Range Interpretation [...] RDW-SD (test code = 42.5 fL 39-49.9 33406-6) RDW-CV (test code = 13.2 % 12-15.5 788-0) PLT (test code = See_Comment [Automated 777-3) message] The sy stem which generated this result transmitted reference range : 166 - 358 10*3/ ?L. The reference r alee was not used to interpret this result as normal/abnormal . MPV (test code = 9.5 fL 9.5-12.9 92034-3) NRBC/100 WBC (test See_Comment [Automat ed code = 5437760020) message] The system which generated this result transmitted reference range : 0.0 - 10.0 /100 WBCs. The refer ence range was not u sed to interpret th is result as normal/abnormal . NRBC x10^3 (test code <0.01 See_Comment [Auto mated = 3185725913) message] The s ystem which generated this result transmitted reference range : 10*3/?L. The reference range was not used to interpret this result as normal/abnormal . GRAN MAT (NEUT) % 56.1 % (test code = 770-8) IMM GRAN % (test code 0.20 % = 5343078623) LYMPH % (test code = 33.0 % 736-9) MONO % (test code = 6.1 % 5905-5) EOS % (test code = 4.2 % 713-8) BASO % (test code = 0.4 % 706-2) GRAN MAT x10^3(ANC) 2.65 10*3/uL 1.88-7.09 (test code = 6806074781) IMM GRAN x10^3 (test <0.03 0-0.06 code = 2386516760) LYMPH x10^3 (test code 1.56 10*3/uL 1.32-3.29 = 731-0) MONO x10^3 (test code 0.29 10*3/uL 0.33-0.92 L = 742-7) EOS x10^3 (test code = 0.20 10*3/uL 0.03-0.39 711-2) BASO x10^3 (test code <0.03 0.01-0.07 = 704-7) Lab Interpretation Abnormal (test code = 77513-5) [facility]2020-[facility]-27 03:50:00 Test Item Value Reference Range Interpretation Comments APTT Patient (test code See_Comment L [Au tomated message] = 3173-2) The system LEAFER generated this result transmitted ref erence range: 26 - 36 Seconds. The reference range was not used to int erpret this result as normal/abnormal . Lab Interpretation (test Abnormal code = 48485-0) [facility] GLUCOSE (AUTOMATED)2019-08-16 01:41:00 Test Item Value Reference Range Interpretation Comments POCT GLU (test code = 6314405965) 127 mg/dL 70-110 H Lab Interpretation (test code = Abnormal 67322-5) [facility] GLUCOSE (AUTOMATED)2019-08-15 16:51:00 Test Item Value Reference Range Interpretation Comments POCT GLU (test code = 122 mg/dL 70-110 H Notifi ed Provider 7763042014) Lab Interpretation (test Abnormal code = 02940-4) [facility]landGlycosylated Hemoglobin (A1C)2019-08-15 13:39:00 Test Item Value Reference Range Interpretation Comments HGB A1C (test code = 4548-4) 5.9 % 4-6 Lab Interpretation (test code = Normal 49967-7) [facility]land[facility] GLU[facility]SE (AUTOMATED)2019-08-15 12:22:00 Test Item Value Reference Range Interpretation Comments POCT GLU (test code = 112 mg/dL 70-110 H Notifi ed Provider 0708869889) Lab Interpretation (test Abnormal code = 51957-4) [facility]landThyroid Stimulating Hormone (TSH)2019-08-15 11:05:00 Test Item Value Reference Range Interpretation Comments TSH (test code = See_Comment [Automated message] 8663656222) The system LEAFER generated this result transmitted ref erence range: 0.45 - 4 .70 mIU/L. The refe rence range was not u sed to interpret this result as normal/abnor mal. Lab Interpretation (test Normal code = 35876-4) [facility]landBapsychiatric Metabolic Panel (NA, K, CL, CO2, GLUCOSE, BUN, CREATININE, CA)2019-08-15 10:11:00 Test Item Value Reference Range Interpretation Comments NA (test code = 135 mmol/L 135-145 2769110565) K (test code = 4.4 mmol/L 3.5-5 0247465640) CL (test code = 103 mmol/L 98-108 0079117896) CO2 TOTAL (test code = 26 mmol/L 23-31 9980456157) AGAP (test code = 2-16 5341275476) BUN (test code = 15 mg/dL 7-23 2532227229) GLUCOSE (test code = 102 mg/dL 70-110 7260583849) CREATININE (test code 0.77 mg/dL 0.5-1.04 = 4492051603) CALCIUM (test code = 9.2 mg/dL 8.6-10.6 3955259401) eGFR Calculation mL/min/1.73m2 (Non-) (test code = 6179631937) eGFR Calculation mL/min/1.73m2 () (test code = 8799429814) LAKESHIA (test code = LAKESHIA) Association of [...] or urine or abnormalities in imaging tests). [facility]landMagnesium [id number] 10:11:00 Test Item Value Reference Range Interpretation Comments MAGNESIUM (test code = 2175798935) 1.8 mg/dL 1.7-2.4 Lab Interpretation (test code = Normal 49300-3) [facility]landPhosphorus [id number] 10:11:00 Test Item Value Reference Range Interpretation Comments PHOSPHORUS (test code = 0744398734) 4.9 mg/dL 2.5-5 Lab Interpretation (test code = Normal 67517-7) [facility] MainlandLipid Panel (Total Cholesterol, Triglycerides, HDL) - [id number] 10:11:00 Test Item Value Reference Range Interpretation Comments CHOL (test code = 243 mg/dL 120-200 H 5815437666) HDL (test code = 25 mg/dL >50 L 2768555433) HDLC RATIO (test code = See_Comment H [Au tomated message] 8257196821) The system LEAFER generated this result transmit kenroy reference range : <=4.5. The refe rence range was not u sed to interpret th is result as normal/abnormal . TRIG (test code = 215 mg/dL 30-170 H 1676216670) LDL CHOL (test code = 175 mg/dL See_Comment H [Auto mated message] 75831-8) The system LEAFER generated this result transmit kenroy reference range : <=160. The refe rence range was not u sed to interpret th is result as normal/abnormal . VLDL (test code = 43 mg/dL 5-60 3155575255) Lab Interpretation (test Abnormal code = 63745-6) [facility]landaPT (for use with Heparin Practice Guideline). Note: Draw and Send all Lab STAT.2019-08-15 10:04:00 Test Item Value Reference Range Interpretation Comments APTT Patient (test code See_Comment H [Au tomated message] = 3173-2) The system LEAFER generated this result transmitted ref erence range: 26 - 36 Seconds. The reference range was not used to int erpret this result as normal/abnormal . Lab Interpretation (test Abnormal code = 59423-2) [facility] WITH [id number] 09:57:00 Test Item Value Reference Range Interpretation Comments WBC (test code = See_Comment [Automated message] 6690-2) The system LEAFER generated this result transmitted ref erence range: 4.30 - 1 1.10 10*3/?L. The re ference range was not u sed to interpret this result as normal/abnor mal. RBC (test code = See_Comment [Automated message] 789-8) The system LEAFER generated this result transmitted ref erence range: [...] RDW-SD (test code 43.8 fL 39-49.9 = 74092-6) RDW-CV (test code 13.3 % 12-15.5 = 788-0) PLT (test code = See_Comment [Automated message] 777-3) The system whic h generated this result transmitted ref erence range: 166 - 35 8 10*3/?L. The re ference range was not u sed to interpret this result as normal/abnor mal. MPV (test code = 9.7 fL 9.5-12.9 75745-1) NRBC/100 WBC (test See_Comment [Automat ed message] code = 4343960510) The syste m which generated this result transmitted ref erence range: 0.0 - 10 .0 /100 WBCs. The refer ence range was not u sed to interpret this result as normal/abnor mal. NRBC x10^3 (test <0.01 See_Comment [Automated message] code = 4514127444) The syste m which generated this result transmitted ref erence range: 10*3/?L. The reference range was not used to interpr et this result as normal/abnormal . GRAN MAT (NEUT) % 51.2 % (test code = 770-8) IMM GRAN % (test 0.30 % code = 5555204482) LYMPH % (test code 36.7 % = 736-9) MONO % (test code 7.1 % = 5905-5) EOS % (test code = 4.2 % 713-8) BASO % (test code 0.5 % = 706-2) GRAN MAT 3.74 10*3/uL 1.88-7.09 x10^3(ANC) (test code = 6135052077) IMM GRAN x10^3 <0.03 0-0.06 (test code = 5378617467) LYMPH x10^3 (test 2.68 10*3/uL 1.32-3.29 code = 731-0) MONO x10^3 (test 0.52 10*3/uL 0.33-0.92 code = 742-7) EOS x10^3 (test 0.31 10*3/uL 0.03-0.39 code = 711-2) BASO x10^3 (test 0.04 10*3/uL 0.01-0.07 code = 704-7) [facility]landTroponin [id number] 04:08:00 Test Item Value Reference Range Interpretation Comments TROPONIN I (test 0.004 ng/mL See_Comment [Automated code = 7213809865) message] The system which generated this result [...] ? Lab Interpretation Normal (test code = 65442-5) [facility]landProthrombin Time / [id number] 03:49:00 Test Item Value Reference Range Interpretation [...] tions. Lab Interpretation (test Normal code = 32784-3) [facility] GLUCOSE (AUTOMATED)2019-08-15 03:32:00 Test Item Value Reference Range Interpretation Comments POCT GLU (test code = 2536441167) 111 mg/dL 70-110 H Lab Interpretation (test code = Abnormal 33523-7) [facility] GLUCOSE (AUTOMATED)2019-08-14 23:21:00 Test Item Value Reference Range Interpretation Comments POCT GLU (test code = 7844694620) 103 mg/dL 70-110 Lab Interpretation (test code = Normal 26909-4) [id number] 22:34:00 Test Item Value Reference Range Interpretation Comments TROPONIN I (test <0.012 See_Comment [Automated code = 6638819199) message] The system which generated this result [...] ? Lab Interpretation Normal (test code = 71288-8) [facility]landCT CHEST PULMONARY [id number] 20:21:52 No acute pulmonary embolism. There is nodular enlargement of the lower right thyroid suggesting anodule. Consider thyroid ultrasound for further evaluation. PreliminaryReport Dictated by Resident: David Glasgow ?MD. Chung, have reviewed this study and agree with [...] reviewed this study and agree with the abovereport.[facility] / [facility] - DRUG SCREEN [id number] 18:49:00 Test Item Value Reference Range Interpretation Comments BENZO U (test code = Negative Negative 5802358184) CATARINO U (test code = Negative Negative 5305039340) AMPHET (test code = Negative Negative 3086757108) THC (test code = Presumptive Negative A Confirmatio n of 7013375789) Positive Presumptive Positive THC result requires physician order . METHADONE (test code Negative Negative = 1201586019) Meth U (test code = Negative Negative 5565852482) OPIATES (test code = Negative Negative 6738705617) Cocaine Metabolite Negative Negative (test code = 4334920449) PROPOXY (test code = Negative Negative 9517629630) Tric U (test code = Presumptive Negative A Confirma tion of 4118251617) Positive Presumptive Positive TCA result requires physician order and this will b e sent to referen ce lab. PCP (test code = Negative Negative 8800029491) OXYCOD (test code = Negative Negative 9374992635) LAKESHIA (test code = Urine Drug Cutoff [...] testing). Lab Interpretation Abnormal (test code = 13613-2) [facility] [id number] 18:31:00 Test Item Value Reference Range Interpretation Comments APPEARANCE (test code = Cloudy Clear A 1979039641) COLOR (test code = Rachel Yellow A 9935978951) PH (test code = 4.8-8.0 9642976708) SP GRAVITY (test code = 1.003-1.030 4512107503) GLU U QUAL (test code = Normal Normal 7517599560) BLOOD (test code = Negative Negative 1081505008) KETONES (test code = Negative Negative 2934835460) PROTEIN (test code = Negative Negative 2887-8) UROBILIN (test code = Normal Normal 1500354336) BILIRUBIN (test code = Negative Negative 2995546744) NITRITE (test code = Negative Negative 8454436016) LEUK CORNELL (test code = Negative Negative 6356482364) RBC/HPF (test code = See_Comment H [Autom ated message] 9400752947) The system LEAFER generated this result transmitted ref erence range: 0 - 3 HP F. The reference range was not used to int erpret this result as normal/abnormal . WBC/HPF (test code = See_Comment H [Autom ated message] 1749384502) The system LEAFER generated this result transmitted ref erence range: 0 - 5 HP F. The reference range was not used to int erpret this result as normal/abnormal . BACTERIA (test code = Few Negative A 1860110450) MUCOUS (test code = Moderate Negative LPF A 9314491364) SQ EPITH (test code = HPF 4942847852) HYAL CAST (test code = See_Comment H [Aut omated message] 8182737752) The system LEAFER generated this result transmitted ref erence range: <=2 LPF. The reference range was not used to int erpret this result as normal/abnormal . Lab Interpretation (test Abnormal code = 05581-0) [facility] RAPID [facility])2019-08-14 18:25:00 Test Item Value Reference Range Interpretation Comments SARS-CoV-2 Rapid ID NOW Not Detected Not Detected (test code = 38141-6) LAKESHIA (test code = LAKESHIA) ID NOW COVID-19 Assay is an isothermal nucleic acid amplification test intended for the qualitative detection of nucleic acid from SARS-CoV-2 viral RNA in nasopharyngeal (TILE SPRAYER) specimens. It is used under Emergency Use [...] indicated. Lab Interpretation Normal (test code = 24887-2) [facility] WITH [id number] 17:57:00 Test Item Value Reference Range Interpretation Comments WBC (test code = See_Comment [Automated message] 0990-2) The system LEAFER generated this result transmitted ref erence range: 4.30 - 1 1.10 10*3/?L. The re ference range was not u sed to interpret this result as normal/abnor mal. RBC (test code = See_Comment [Automated message] 119-8) The system LEAFER generated this result transmitted ref erence range: [...] RDW-SD (test code 42.7 fL 39-49.9 = 52463-8) RDW-CV (test code 13.1 % 12-15.5 = 788-0) PLT (test code = See_Comment [Automated message] 777-3) The system LEAFER generated this result transmitted ref erence range: 166 - 35 8 10*3/?L. The re ference range was not u sed to interpret this result as normal/abnor mal. MPV (test code = 9.7 fL 9.5-12.9 88814-5) NRBC/100 WBC (test See_Comment [Automat ed message] code = 8459310530) The syste m which generated this result transmitted ref erence range: 0.0 - 10 .0 /100 WBCs. The refer ence range was not u sed to interpret this result as normal/abnor mal. NRBC x10^3 (test <0.01 See_Comment [Automated message] code = 8957477319) The syste m which generated this result transmitted ref erence range: 10*3/?L. The reference range was not used to interpr et this result as normal/abnormal . GRAN MAT (NEUT) % 59.0 % (test code = 770-8) IMM GRAN % (test 0.30 % code = 0074037863) LYMPH % (test code 31.8 % = 736-9) MONO % (test code 4.6 % = 5905-5) EOS % (test code = 3.6 % 713-8) BASO % (test code 0.7 % = 706-2) GRAN MAT 4.49 10*3/uL 1.88-7.09 x10^3(ANC) (test code = 5849520179) IMM GRAN x10^3 <0.03 0-0.06 (test code = 2360849492) LYMPH x10^3 (test 2.41 10*3/uL 1.32-3.29 code = 731-0) MONO x10^3 (test 0.35 10*3/uL 0.33-0.92 code = 742-7) EOS x10^3 (test 0.27 10*3/uL 0.03-0.39 code = 711-2) BASO x10^3 (test 0.05 10*3/uL 0.01-0.07 code = 704-7) [facility] [id number] 17:55:00 Test Item Value Reference Range Interpretation Comments TROPONIN I (test <0.012 See_Comment [Automated code = 1869795579) message] The system which generated this result [...] ? Lab Interpretation Normal (test code = 97584-8) [facility] 3 [id number] 17:54:06 ?The C1-C5 are well evaluated on [...] or with CT scan.Location code: RL: [facility] CHE[facility] 1 [id number] 17:51:58 ?No acute significant abnormality. Reading location: RL: 4700 Thank you for letting us participate in the care of your patient. EXAM: ?XR Chest, 1 View CLINICAL HISTORY: ?39 years Female chest pain ? Referring Physician: Glo GERMAN StudyDate: 08/14/2019 12:51 PM TECHNIQUE: ?Frontal view of the chest. COMPARISON: ?No relevant prior studies available. FINDINGS: ?LUNGS: ?Unremarkable. ?No consolidation. ?PLEURAL SPACE: ?Unremarkable. ?No pneumothorax. ?HEART: ?Unremarkable. ?No cardiomegaly. ?MEDIASTINUM: ?Unremarkable. ?BONES/JOINTS: ?Unremarkable. [facility], Radiant Results Inft User - 08/14/2019 12:53 PM CDTEXAM: XR Chest, 1 ViewCLINICAL HISTORY: 39 years Female chest pain Referring Physician: Link Gonzalezudpaul Date: 08/14/2019 12:51 PMTECHNIQUE: Frontal view of the chest.COMPARISON: No relevant prior studies available.FINDINGS: LUNGS:Unremarkable. No consolidation. PLEURAL SPACE: Unremarkable. No pneumothorax. HEART: Unremarkable. No cardiomegaly. MEDIASTINUM: Unremarkable. BONES/JOINTS: Unremarkable.IMPRESSION No acute significantabnormality.Reading location: RL: [facility] Divisionank you for letting us participate in the care of your patient. [facility] CenterN-TERMINAL [id number] 17:51:00 Test Item Value Reference Range Interpretation Comments NT-proBNP (test code 859 pg/mL See_Comment H [Autom ated = 5339465715) message] The system which generated this result transmitted reference range : <=125. The reference range was not used to interpret this result as normal/abnormal . LAKESHIA (test code = LAKESHIA) Biotin has been reported to cause a negative bias, interpret results relative to patient's use of biotin. Lab Interpretation Abnormal (test code = 35404-6) [facility] [id number] 17:50:00 Test Item Value Reference Range Interpretation Comments POCT PREG (test code = 1605) negative On board controls acceptable with present C Line (test code = 3574) POCT PREG LOT # (test code = 3575) [id number] POCT PREG TEST DATE (test 10/19/2020 code = 3576) Lab Interpretation (test code = Normal 07917-4) [facility]. METABOLIC PANEL (67694)2019-08-14 17:43:00 Test Item Value Reference Range Interpretation Comments NA (test code = 142 mmol/L 135-145 9293554820) K (test code = 4.5 mmol/L 3.5-5 4279727738) CL (test code = 105 mmol/L 98-108 4947569631) CO2 TOTAL (test code = 26 mmol/L 23-31 2869626378) AGAP (test code = 2-16 4302126487) BUN (test code = 10 mg/dL 7-23 3552430537) GLUCOSE (test code = 142 mg/dL 70-110 H 1523342646) CREATININE (test code = 0.69 mg/dL 0.5-1.04 1846029059) TOTAL BILI (test code = 0.7 mg/dL 0.1-1.0 9547876968) CALCIUM (test code = 9.7 mg/dL 8.6-10.6 8962912826) T PROTEIN (test code = 8.1 g/dL 6.3-8.2 2412809190) ALBUMIN (test code = 4.1 g/dL 3.5-5 0581089270) ALK PHOS (test code = 126 U/L 34-122 H 2689091189) ALTv (test code = 22 U/L 5-35 1742-6) AST(SGOT) (test code = 25 U/L 13-40 7386083318) eGFR Calculation mL/min/1.73m2 (Non-) (test code = 1828201393) eGFR Calculation mL/min/1.73m2 () (test code = 7498636567) LAKESHIA (test code = LAKESHIA) Association of [...] tests). Lab Interpretation Abnormal (test code = 60292-3) [facility]2020-05-[facility] 17:43:00 Test Item Value Reference Range Interpretation Comments LIPASE (test code = 1943997217) 62 U/L 0-220 Lab Interpretation (test code = Normal 14644-5) [facility]landMAGNESIUM2020-05-25 17:43:00 Test Item Value Reference Range Interpretation Comments MAGNESIUM (test code = 7076164379) 1.7 mg/dL 1.7-2.4 Lab Interpretation (test code = Normal 62394-1) [facility]landD-[id number] 17:28:00 Test Item Value Reference Interpretation Comments Range D-DIMER (test code = See_Comment H [Autom ated 7699395699) message] The system which generated this result [...] diagnosis. Lab Interpretation Abnormal (test code = 80543-4) [facility] W/AUTO [id number] 11:13:00 Test Item Value Reference Range Interpretation [...] = 0.00 K/mm3 0.0-0.1 N NRBC#) DIFFERENTIAL [id number] 11:13:00 Test Item Value Reference Range Interpretation Comments RBC MORPHOLOGY REQUIRED (test code = ABNORMAL RBCM) ANISOCYTOSIS (test code = ANISO) MODERATE NONE PLATELET ESTIMATE (test code = ADEQUATE ADEQUATE PLTEST) PLATELET MORPHOLOGY (test code = NORMAL NORMAL PLTMORPH) BASIC METABOLIC [id number] 07:25:00 Test Item Value Reference Range Interpretation [...] 9.2 MG/DL 8.4-10.2 N CA) CBC W/AUTO [id number] 06:25:00 Test Item Value Reference Range Interpretation [...] = 0.00 K/mm3 0.0-0.1 N NRBC#) DIFFERENTIAL [id number] 06:25:00 Test Item Value Reference Range Interpretation Comments RBC MORPHOLOGY REQUIRED (test code = RBCM) PLATELET ESTIMATE (test code = PLTEST) ADEQUATE PLATELET MORPHOLOGY (test code = NORMAL PLTMORPH) CBC W/AUTO [id number] 06:25:00 Test Item Value Reference Range Interpretation [...] = 0.00 K/mm3 0.0-0.1 N NRBC#) DIFFERENTIAL [id number] 06:25:00 Test Item Value Reference Range Interpretation Comments RBC MORPHOLOGY REQUIRED (test code = RBCM) PLATELET ESTIMATE (test code = PLTEST) ADEQUATE PLATELET MORPHOLOGY (test code = NORMAL PLTMORPH) CBC W/O [id number] 11:11:00 Test Item Value Reference Range Interpretation [...] = 0.00 K/mm3 0.0-0.1 N NRBC#) DIFFERENTIAL [id number] 11:11:00 Test Item Value Reference Range Interpretation Comments RBC MORPHOLOGY REQUIRED (test code = ABNORMAL RBCM) ANISOCYTOSIS (test code = ANISO) SLIGHT NONE MICROCYTOSIS (test code = MICR) FEW NONE ELLIPTOCYTES (test code = ELL) FEW NONE OVALOCYTES (test code = OVAL) FEW NONE PLATELET ESTIMATE (test code = ADEQUATE ADEQUATE PLTEST) PLATELET MORPHOLOGY (test code = NORMAL NORMAL PLTMORPH) WBC [id number] 11:11:00 Test Item Value Reference Range Interpretation [...] EOS) 8.2 % 1-7 H BASIC METABOLIC [id number] 10:21:00 Test Item Value Reference Range Interpretation [...] 9.2 MG/DL 8.4-10.2 N CA) CBC W/O [id number] 10:03:00 Test Item Value Reference Range Interpretation [...] = 0.00 K/mm3 0.0-0.1 N NRBC#) DIFFERENTIAL [id number] 10:03:00 Test Item Value Reference Range Interpretation Comments RBC MORPHOLOGY REQUIRED (test code = RBCM) PLATELET ESTIMATE (test code = PLTEST) ADEQUATE PLATELET MORPHOLOGY (test code = NORMAL PLTMORPH) WBC [id number] 10:03:00 Test Item Value Reference Range Interpretation Comments TOTAL CELLS COUNTED (test code = TCC) #CELLS SEGMENTED NEUTROPHILS (test code = % 36.2-73.8 SEG) LYMPHOCYTE (test code = LYMPH) % 12.9-45.1 MONOCYTE (test code = MON) % 0-11 CBC W/AUTO [id number] 10:03:00 Test Item Value Reference Range Interpretation [...] = 0.00 K/mm3 0.0-0.1 N NRBC#) WBC [id number] 10:03:00 Test Item Value Reference Range Interpretation Comments RBC MORPHOLOGY REQUIRED (test code = RBCM) TOTAL CELLS COUNTED (test code = TCC) #CELLS SEGMENTED NEUTROPHILS (test code = % 36.2-73.8 SEG) LYMPHOCYTE (test code = LYMPH) % 12.9-45.1 MONOCYTE (test code = MON) % 0-11 PLATELET ESTIMATE (test code = ADEQUATE PLTEST) PLATELET MORPHOLOGY (test code = NORMAL PLTMORPH) VANCOMYCIN [id number] 23:47:00 Test Item Value Reference Range Interpretation Comments VANCOMYCIN TROUGH (test code = 14.1 UG/ML 10.0-20.0 N VANCT) CBC W/AUTO [id number] 15:26:00 Test Item Value Reference Range Interpretation [...] = 0.00 K/mm3 0.0-0.1 N NRBC#) DIFFERENTIAL [id number] 15:26:00 Test Item Value Reference Range Interpretation Comments RBC MORPHOLOGY REQUIRED (test code = NORMAL RBCM) POIKILOCYTOSIS (test code = POIK) FEW NONE ANISOCYTOSIS (test code = ANISO) SLIGHT NONE MICROCYTOSIS (test code = MICR) FEW NONE PLATELET ESTIMATE (test code = ADEQUATE ADEQUATE PLTEST) PLATELET MORPHOLOGY (test code = NORMAL NORMAL PLTMORPH) BASIC METABOLIC [id number] 11:48:00 Test Item Value Reference Range Interpretation [...] N CA) - CT HD/BR W W/O [id number] 11:45:00 Patient Name: LEIGH FRYE Unit No: [id number] EXAMS: CPT CODE: [id number] CT HD/BR W W/OCONT [address] HEAD WITHOUT CONTRAST HISTORY: post [...] URIEL BARTON RT(R)(CT)(MR); CTDI: DLP: Trnscrpt: 10/01/2018 (7158) [email or web address] [facility] NAME: LEIGH FRYE [address] [address] PHYS: Jani Bro [place], [place] [address]KQS: 1980 AGE: 38 SEX: F LOC: Z.530 A PHONE #: [phone] EXAM DATE: 10/01/2018 STATUS: ADM IN FAX #: [phone] RAD #: D/C DT PAGE 1 Signed Report Patient Name: LEIGH FRYE Unit No: [id number] EXAMS: CPT CODE: [id number] CT HD/BR W W/O CONT 57914 (Continued) Orig Print D/T: S: 10/01/2018 (4460) [facility] NAME: LEIGH FRYE [address] [address] PHYS: [place] [address] : 1980 AGE: 38 SEX: F LOC: Z.530 A PHONE #: [phone] EXAM DATE: 10/01/2018 STATUS: ADM IN FAX #: [phone] RAD #: D/C DT PAGE 2 Signed ReportPROTHROMBIN [id number] 11:40:00 Test Item Value Reference Range Interpretation [...] va lve, or acute myocar dial infarction. 2. 0 - 3.0 3. Keg Filler al prosthesis hear t valves, recurre nt systemic emboli sm. 3.0 - 4.5 PTT [id number] 11:40:00 Test Item Value Reference Range Interpretation Comments PTT ACTIVATED (test code = APTT) 25.7 SECONDS 22.0-33.0 N [id number] 11:40:00 Test Item Value Reference Range Interpretation Comments FIBRINOGEN (test code = FIB) 430 MG/DL 185-512 N [id number] 11:40:00 Test Item Value Reference Range Interpretation [...] f standard radiological pr ocedures. CBC W/AUTO [id number] 11:24:00 Test Item Value Reference Range Interpretation [...] = 0.00 K/mm3 0.0-0.1 N NRBC#) DIFFERENTIAL [id number] 11:24:00 Test Item Value Reference Range Interpretation Comments RBC MORPHOLOGY REQUIRED (test code = RBCM) PLATELET ESTIMATE (test code = PLTEST) ADEQUATE PLATELET MORPHOLOGY (test code = NORMAL PLTMORPH) PLATELET [id number] 11:24:00 Test Item Value Reference Range Interpretation Comments PLATELET COUNT (test code = PLT) 211 K/MM3 129-368 N CBC W/AUTO [id number] 11:24:00 Test Item Value Reference Range Interpretation [...] = 0.00 K/mm3 0.0-0.1 N NRBC#) DIFFERENTIAL [id number] 11:24:00 Test Item Value Reference Range Interpretation Comments RBC MORPHOLOGY REQUIRED (test code = RBCM) PLATELET ESTIMATE (test code = PLTEST) ADEQUATE PLATELET MORPHOLOGY (test code = NORMAL PLTMORPH) CBC W/O [id number] 00:37:00 Test Item Value Reference Range Interpretation [...] = 0.00 K/mm3 0.0-0.1 N NRBC#) DIFFERENTIAL [id number] 00:37:00 Test Item Value Reference Range Interpretation Comments RBC MORPHOLOGY REQUIRED (test code = ABNORMAL RBCM) ANISOCYTOSIS (test code = ANISO) MODERATE NONE MICROCYTOSIS (test code = MICR) FEW NONE PLATELET ESTIMATE (test code = ADEQUATE ADEQUATE PLTEST) PLATELET MORPHOLOGY (test code = NORMAL NORMAL PLTMORPH) - CT HD/BR W W/O [id number] 00:36:00 Patient Name: LEIGH FRYE Unit No: [id number] EXAMS: CPT CODE: [id number] CT HD/BR W W/O CONT 98051 Exam: CT of the brain and maxillofacial [...] right inferior rectus muscle, correlate for entrapment. [facility] NAME: LEIGH FRYE [address] [address] PHYS: TIFFANY.aDrcie - [place] [address] : 1980 AGE: 38 SEX: F LOC: FLEX PHONE #: [phone] EXAM DATE: 09/27/2018 STATUS: REG ER FAX #: [phone] RAD #: D/C DT PAGE1 Signed Report (CONTINUED) Patient Name: LEIGH FRYE Unit No: [id number] EXAMS: CPT CODE: [id number] CT HD/BR W W/O CONT 28149 (Continued) at 0036 Reported and signed by: Ko Luo MD CC: Lazarus Brink MD Technologist: URIEL BARTON RT(R)(CT)(MR) CTDI: DLP: Trnscrpt: 09/28/2018 (0036) [email or web address] [facility] NAME: LEIGH FRYE PHYS: [place] [address] : 1980 AGE: 38 SEX: F LOC: [employer] PHONE #: [phone] EXAM DATE: 09/27/2018 STATUS: REG ER FAX #: [phone] RAD #: D/C DT PAGE 2 Signed Report Patient Name: LEIGH FRYE Unit No: [id number] EXAMS: CPT CODE: [id number] CT HD/BR W W/O CONT 42325 (Continued) Orig Print D/T: S: 09/28/2018 (0040) [facility] NAME: LEIGH FRYE [address] PHYS: [place] [address] : 1980 AGE: 38 SEX: F LOC: [employer] PHONE #: [phone] DATE: 09/27/2018 STATUS: REG ER FAX #: [phone] RAD #: D/C DT PAGE 3 Signed Report- CT MAXIFAC W/[id number] 00:36:00 Patient Name: LEIGH FRYE Unit No: [id number] EXAMS: CPT CODE: [id number] CT MAXIFAC W/CONTRAST 25485 Exam: CT of the brain and maxillofacial bones with intravenous contrast. History: Headache, fever, pituitary surgery. Technique: Contiguous axial CT images were obtained from the skull basethrough the vertex after intravenous contrast. Contiguous axial CT images of the maxillofacial boneswas obtained with intravenous contrast. One or more [...] right inferior rectus muscle, correlate for entrapment. [facility] NAME: LEIGH FRYE [address] [address] PHYS: FISDA.Darcie - [place] [address] : 1980 AGE: 38 SEX: F LOC: Z.ERS PHONE #: [phone] EXAM DATE: 09/27/2018 STATUS: REG ER FAX #: [phone] RAD #: D/C DT PAGE 1 Signed Report (CONTINUED) Patient Name: LEIGH FRYE Unit No: [id number] EXAMS: CPT CODE: [id number] CT MAXIFAC W/CONTRAST 53901 (Continued) Electronically Signed by Ko Luo MD on09/28/2018 at 0036 Reported and signed by: Ko Luo MD CC: Lazarus Brink MD Technologist: URIEL BARTON RT(R)(CT)(MR) CTDI: DLP: Trnscrpt: 09/28/2018 (0036) [email or web address] [facility] NAME: LEIGH FRYE [address] [address] PHYS: [place] [address] : 1980 AGE: 38 SEX: F LOC: FLEX PHONE #: [phone] EXAM DATE: 09/27/2018 STATUS: REG ERFAX #: [phone] RAD #: D/C DT PAGE 2 Signed Report Patient Name: LEIGH FRYE Unit No: [id number] EXAMS: CPT CODE: [id number] CT MAXIFAC W/CONTRAST 28611 (Continued) Orig Print D/T: S: 09/28/2018 (0040) [facility] NAME: LEIGH FRYE [address] [address] PHYS: EDILBERTO Jones [place] [address] : 1980 AGE: 38 SEX: F LOC: FLEX PHONE #: [phone] EXAM DATE: 09/27/2018 STATUS: REG ER FAX #: [phone] RAD #: D/C DT PAGE 3 Signed Report- CT ABD PELVIS W/O [id number] 00:22:00 Patient Name: LEIGH FRYE Unit No: [id number] EXAMS: CPT CODE: [id number] CT ABD PELVIS W/O CONT 79766 CLINICAL HISTORY: Flank pain. LOCATION: E5 FINDINGS: [...] noted. The appendix appears to have been surgicallyremoved. No acute skeletal or soft tissue abnormalities are identified. IMPRESSION: 1. No acute abnormalities. This exam was performed according to our departmental dose-optimization program, which includes automated exposure control, adjustment of the mA and/or kV according to patient size and/or useof iterative reconstruction technique at 0022 Reported and signed by: Luis M Gee MD CC: Lazarus Brink MD Technologist: URIEL BARTON RT (R)(CT)(MR) CTDI: DLP: Trnscrpt: 09/28/2018 (0022) [email or web address] [facility] NAME: LEIGH FRYE[address] [address] PHYS: Lazarus Mustafa MD [place] [id number] : 1980 AGE: 38 SEX: F LOC: [employer] PHONE #: [phone] EXAM DATE: 09/27/2018 STATUS: REG ER FAX #: [phone] RAD #: D/C DT PAGE 1 Signed Report Patient Name: LEIGH FRYE Unit No: [id number]: CPT CODE: [id number] CT ABD PELVIS W/O CONT 30208 (Continued) Orig Print D/T: S: 09/28/2018 (0025) [facility] NAME: LEIGH FRYE [address] [address] PHYS: [place] [address] : 1980 AGE: 38 SEX: F LOC: [employer] PHONE #: [phone] EXAMDATE: 09/27/2018 STATUS: REG ER FAX #: [phone] RAD #: D/C DT PAGE 2 Signed ReportBASIC METABOLIC [id number] 23:35:00 Test Item Value Reference Range Interpretation [...] 9.7 MG/DL 8.4-10.2 N CA) HEPATIC FUNCTION [id number] 23:35:00 Test Item Value Reference Range Interpretation [...] code = 139 UNITS/L 38-126 H ALKP) [id number] 23:35:00 Test Item Value Reference Range Interpretation Comments LIPASE (test code = LIP) 134 UNITS/L 23-300 N HCG SERUM [id number] 23:35:00 Test Item Value Reference Range Interpretation Comments HCG SERUM QUAL (test code = HCGQL) NEGATIVE NEGATIVE A BASIC METABOLIC [id number] 23:31:00 Test Item Value Reference Range Interpretation [...] code = CA) MG/DL 8.7-9.7 HEPATIC FUNCTION [id number] 23:31:00 Test Item Value Reference Range Interpretation Comments TOTAL PROTEIN (test code = PROT) G/DL 6.3-8.2 ALBUMIN (test code = ALB) G/DL 3.5-5.0 BILIRUBIN TOTAL (test code = BILT) MG/DL 0.2-1.3 BILIRUBIN DIRECT (test code = BILD) MG/DL 0.0-0.3 SGOT/AST (test code = AST) UNITS/L 15-37 SGPT/ALT (test code = ALT) UNITS/L 9-52 ALKALINE PHOSPHATASE (test code = UNITS/L 38-126 ALKP) [id number] 23:31:00 Test Item Value Reference Range Interpretation Comments LIPASE (test code = LIP) UNITS/L 23-300 HCG SERUM [id number] 23:31:00 Test Item Value Reference Range Interpretation Comments HCG SERUM QUAL (test code = HCGQL) NEGATIVE NEGATIVE A URINALYSIS [id number] 23:24:00 Test Item Value Reference Range Interpretation [...] Criteria SOURCE OF URINE: CLEAN CATCHCBC W/O [id number] 23:18:00 Test Item Value Reference Range Interpretation [...] = 0.00 K/mm3 0.0-0.1 N NRBC#) DIFFERENTIAL [id number] 23:18:00 Test Item Value Reference Range Interpretation Comments RBC MORPHOLOGY REQUIRED (test code = RBCM) PLATELET ESTIMATE (test code = PLTEST) ADEQUATE PLATELET MORPHOLOGY (test code = NORMAL PLTMORPH) CBC W/O [id number] 23:18:00 Test Item Value Reference Range Interpretation [...] = 0.00 K/mm3 0.0-0.1 N NRBC#) DIFFERENTIAL [id number] 23:18:00 Test Item Value Reference Range Interpretation Comments RBC MORPHOLOGY REQUIRED (test code = RBCM) PLATELET ESTIMATE (test code = PLTEST) ADEQUATE PLATELET MORPHOLOGY (test code = NORMAL PLTMORPH) URINALYSIS [id number] 23:15:00 Test Item Value Reference Range Interpretation [...] UACULT) SOURCE OF URINE: CLEAN CATCHVENOUS THROMBOPHILIA [id number] 07:52:00 Test Item Value Reference Range Interpretation [...] ference Range:57 - 163 Antithrombi n Activity, Xmrmxz461 % Dir ect oral anticoagulants such as [...] been cleared or approvedby [facility] Food and Drug Administration. APTT 29.4 sec This test has not be en validated for monitoringunfra ctionated heparin therapy. aPTT-b ased therapeuticrang es for unfractionated heparin therapy have not beenes tablished. Consider ordering Hepari n anti-Xa(unfract ionated).Reference Range:18 years and older: 22.9 - 30.2APTT 1:1 TILE SPRAYER Testing Not Indicated Not i ndicatedAPTT 1:1 [...] for definitive anti phospholipid syndrome (APS). JThromb Ibaa3599;4:295- 306.Reference Range:Negative: <21Beta-2 Glycoprotein I, IgM <10 SMU The reference inter pb reflects a 3SD or 99th percent ileinterval, which is thought to r epresent a potentiallyclin ically significant result in accor dance with theInternationa l Consensus Statement on e classificationc riteria for definitive anti phospholipid syndrome (APS). JThromb Uddi7412;4:295- 306.Reference Range:Negative: <33Beta-2 Glycoprotein I, IgA <10 DERIAN The reference inter pb reflects a 3SD or 99th percentileinter pb.Reference Range:Negative: <26 Factor II Gene Mutation Result G-G (Normal-Normal) No prothrombin [id number] mutatio n present.Interpr etation: While the patient [...] For in stance, acombination of the prothrombin C83758G mutatio n and thefactor V Leiden mutation may confer an increase inthro mbotic risk in the range of 20-30 fold.Recommenda tions for Genetic Counseling: The prothrombingene mutation is an inherited characteristic. If themutation is present, we rec ommend that the patient andthei r family consider genetic clinical mental health counselor ing to obtainadditiona l information on inheritance and to identify otherfamily mem bers at risk.Testing Ch aracteristics: Genetic testing providesexcepti onally high sensitivity and specificity. Inaccurateresul ts are limited to rare polymorphi sms in primer bindingsites an d to misidentificati on of specimens by collectorsor la boratory personnel. This assay dete cts only theprothrombin V06568Q mutation and does not de tect othergenetic abnormalities.T his test was developed and i ts performance characteristics determined by [employer]. It has not been cleared or approvedby [facility] Food and Drug Administration. References: Presley K, et al. Br J of Haem. 1997;98:907.Alexsander graham AM, et al. Br J of Haem. 1997 ;98:353. Marine hunter and Garcia Mol.Diagn. 2001 ;6(3):201.Rodri J, et al. Throm b Haemost. 2001;86:809-16. Jayda M, et al. Thromb Haem ost. 1999;82:1583. Factor [...] For in stance, acombination of the prothrombin T67071Q mutatio n and thefactor V Leiden mutation may confer an increase inthro mbotic risk in the range of 20-30 fold.Recommenda tions for Genetic Counseling: The factor V Leidenmutation is an inherited characteristic. If the mutation ispresent, we r ecommend that the patient and the ir familyconsider genetic clinical mental health counselor ing to obtain additionalinfor mation on [...] and i ts performance characteristics determined by [employer]. It has not been cleared or approvedby [facility] Food and Drug Administration. PER CHUCKIE RNVENOUS THROMBOSIS PROFILETEST CODE: [id number]: THREE TUBES, 2 ML PPP EACH, FROZEN 2ML SERUM FROZEN 5 ML EDTA WHOLE BLOOD, ROOM TEMP.FLUID, [id number] 15:41:00 RUN DATE: 09/13/18 [facility] PAGE 1 RUN TIME: 1541 Specimen Inquiry RUN USER: INTERFACE PATIENT: LEIGH FRYE JOANNE LOC: [id number] U #: [id number] AGE/SX: 38/F ROOM: [facility] RE08/25/18REG DR: Jani Mckoy MD : 80 BED: A DIS: 09/13/18 STATUS: DIS IN TLOC: SPEC #: [id number] RECD: 09/12/18 STATUS: BILL REYoli #: [id number] LAST: 09/12/18-0 [facility] DR: Jani Mckoy MD ENTERED: 09/12/18 SP TYPE: FLTHYR OTHR DR: Ko Valles MD, Asia E Cabrera Walsh MD, PatrickMDORDERED: CB, FNA, FNA SAMPLE ADEQ CODES: CF7502 - THYROID GLAND PT2446 W05374 - THYROID GLAND NEEDLE EK8705 K40411 - THYROID GLAND NEOPLASM, UNCER CE4477 C88895 - THYROID GLAND ASPIRATION, NOS [place]: [place] [address] [place] [address] Ko Valles MD [address] [facility] [address] [place] [address] [email or web address] Matilde Burnham E DPM [address] [facility] [address] [place] [address] [place] [address] [place] [id number] [place] [address] [facility] [address] [place] [address] PROCEDURES: CB (09/12/18- 1709) FNA (09/12/18-1709) FNA SAMPLE ADEQ (09/13/18-154) TISSUES: A. THYROID GLAND, NOS - RIGHT THYROID FNA CONTINUED ON NEXT PAGE RUN DATE: 09/13/18 [facility] PAGE 2 RUN TIME: 1541 Specimen Inquiry RUN USER: INTERFACE SPEC #: [id number] PATIENT: LEIGH FRYE #[id number] (Continued) CLINICAL HISTORY PITUITARY TUMOR CONSULTATION Dr. Felix Lubin has reviewed this case and agrees with the diagnosis. CPT CODES CPT CODE(S): 76023 , 28253 , 56517 , , , , FINAL DIAGNOSIS Thyroid, [...] Burton 09/13/18 1541 END OF REPORT ADRENOCORTICOTROPIC [id number] 07:25:00 Test Item Value Reference Range Interpretation Comments ADRENOCORTICOTROPIC HORMONE 10.1 pg/mL 7.2-63.3 ACTH reference (test code = ACTH) interval for samples collected between 7 and10 AM.Performed At : [address] [id number] Etienne Valles MD Ph:[phone] - US FINE NEEDLE [id number] 15:08:00 Patient Name: LEIGH FRYE Unit No: [id number] EXAMS: CPT CODE: [id number] US FINE NEEDLE A SPIRATION 27896 Procedure: Ultrasound-guided right thyroid FNA Location: B2 Clinical Indication: 38-year-old with nodule Comparison: September 10, 2018 Technique: Written informed consent was obtained. Patient was placed supine on the stretcher and the right neck prepped and draped. Ultrasound was used to identify the nearly 3 cm well-circumscribed hypoechoic mass. 1% lidocaine was given. Under direct ultrasound visualization, multiple fine-needle aspiration specimens were obtained using 25 and 23-gaugeneedles. These were deemed adequate by the pathologist. Patient tolerated the procedure well, without immediate complication. Impression: Successful FNA of a right thyroid 3 cm nodule. at 1508 Reported and signed by: Ko Valles M.D. CC: Technologist: Laura Devries Transcrpt Date/Tm/Trnsp: 09/12/2018 (6510) tHANNAHR.[email or web address] Orig Print D/T: S: 09/12/2018 (3420) [facility] NAME: LEIGH FRYE [address] PHYS: [place] [address] : 1980 AGE: 38 SEX: F LOC: Z.504 A PHONE #: [phone] EXAM DATE: 09/12/2018 STATUS: ADM IN FAX #: [phone] RADIOLOGY NO: PAGE 1Signed ReportUR OSMOLALITY [id number] 13:16:00 Test Item Value Reference Range Interpretation Comments UR OSMOLALITY RANDOM (test code = 311 MOS/KG 300-1200 N OSMOU) OSMOLALITY [id number] 10:17:00 Test Item Value Reference Range Interpretation Comments OSMOLALITY SERUM (test code = 297 mOsm/kg 275-295 H OSMO) [id number] 07:19:00 Test Item Value Reference Range Interpretation Comments GASTRIN (test 151 pg/mL 0-115 H Siemens Immuli te 2000 code = LINDA) Immunochemilumi nometric assay (ICMA)Values ob tained with different assay methods or kits cannotbe u sed interchangeably . Results cannot be inter preted asabsolute evid ence of the presence or abs ence of malignantdiseas e.Performed At: [facility] [address] [place], [place] [address]Pernmj ra Kristen VELASCO Ph:[phone] PARATHYROID HORMONE [id number] 07:02:00 Test Item Value Reference Range Interpretation Comments PARATHYROID HORMONE INTACT (test 100.6 pg/mL 7.5-53.5 H code = PARAI) CBC W/AUTO [id number] 10:14:00 Test Item Value Reference Range Interpretation [...] = 0.00 K/mm3 0.0-0.1 N NRBC#) DIFFERENTIAL [id number] 10:14:00 Test Item Value Reference Range Interpretation Comments RBC MORPHOLOGY REQUIRED (test code = NORMAL RBCM) PLATELET ESTIMATE (test code = PLTEST) ADEQ ADEQUATE PLATELET MORPHOLOGY (test code = NORMAL NORMAL PLTMORPH) T4 [id number] 07:55:00 Test Item Value Reference Range Interpretation Comments T4 FREE (test code = T4F) 1.3 NG/DL 0.78-2.19 N THYROID STIMULATING [id number] 07:55:00 Test Item Value Reference Range Interpretation Comments THYROID STIMULATING 1.530 MIU/L 0.465-4.68 N Please b e aware that HORMONE (test code = bias re sults for TSH TSH) may occur forpa tient who are taking Biotin suppleme nts. CORTISOL [id number] 07:53:00 Test Item Value Reference Range Interpretation Comments CORTISOL AM (test code = CORTAM) 2.45 ug/dL 4.46-22.7 L T4 [id number] 07:41:00 Test Item Value Reference Range Interpretation Comments T4 FREE (test code = T4F) 1.3 NG/DL 0.78-2.19 N THYROID STIMULATING [id number] 07:41:00 Test Item Value Reference Range Interpretation Comments THYROID STIMULATING HORMONE (test code MIU/L 0.465-4.68 = TSH) COMPREHENSIVE METABOLIC [id number] 07:25:00 Test Item Value Reference Range Interpretation [...] UNITS/L 38-126 H (test code = ALKP) [id number] 07:25:00 Test Item Value Reference Range Interpretation Comments MAGNESIUM (test code = MAG) 2.0 MG/DL 1.6-2.3 N CBC W/AUTO [id number] 07:09:00 Test Item Value Reference Range Interpretation [...] = 0.00 K/mm3 0.0-0.1 N NRBC#) DIFFERENTIAL [id number] 07:09:00 Test Item Value Reference Range Interpretation Comments RBC MORPHOLOGY REQUIRED (test code = RBCM) PLATELET ESTIMATE (test code = PLTEST) ADEQUATE PLATELET MORPHOLOGY (test code = NORMAL PLTMORPH) CBC W/AUTO [id number] 07:09:00 Test Item Value Reference Range Interpretation [...] = 0.00 K/mm3 0.0-0.1 N NRBC#) DIFFERENTIAL [id number] 07:09:00 Test Item Value Reference Range Interpretation Comments RBC MORPHOLOGY REQUIRED (test code = RBCM) PLATELET ESTIMATE (test code = PLTEST) ADEQUATE PLATELET MORPHOLOGY (test code = NORMAL PLTMORPH) - US HEAD AND [id number] 09:01:00 Patient Name: LEIGH FRYE Unit No: [id number] EXAMS: CPT CODE: [id number] US HEAD AND NECK 75587 LOCATION: T18 EXAM: - US HEAD AND NECK INDICATION: nodule rt thyroid area COMPARISON: CT of t he chest September 04, 2018. Thyroid ultrasound August [...] Transcrpt Date/Tm/Trnsp: 09/10/2018 (09) ManuelJP19 Orig Print D/T:S: 09/10/2018 (903) [facility] NAME: LEIGH FRYE [id number] PHYS: AJU [place] [address] : 1980 AGE: 38 SEX: F LOC: ZKoby504 A PHONE #: [phone] EXAM DATE: 09/10/2018 STATUS: ADM IN FAX #: [phone] RADIOLOGY NO: PAGE 1 Signed Report- XR CHEST 2 [id number] 09:35:00 Patient Name: LEIGH FRYE Unit No: [id number] EXAMS: CPT CODE: [id number] XR CHEST 2 V 02383 EXAM: CHEST 2 VIEWS INDICATION: Follow-up infiltrates LOCATION: B2 COMPARISON: September 07, 2018 TECHNIQUE: PA and lateral views of the chest. FINDINGS: The right PICC tip overlies the SVC. The heart s ize is normal. There are diffuse interstitial and airspace opacities throughout both lungs unchangedfrom the prior examination. No pneumothorax or pleural effusion is identified. The osseous structures are normal. IMPRESSION: Diffuse interstitial and airspace opacities throughout both lungs unchangedfrom the prior examination. at 0935 Reported and signed by: Ida bOrien MD CC: Technologist: Serenity Cali, RT (R) Transcrpt Date/Tm/Trnsp: 09/09/2018 (0935) ManuelMD16 Orig Print D/T: S: 09/09/2018 (0938) [facility] NAME: LEIGH FRYE [id number] PHYS: [place] [address] : 1980 AGE: 38 SEX:F LOC: Nani Mccullough PHONE #: [phone] EXAM DATE: 09/09/2018 STATUS: ADM IN FAX #: [phone] RADIOLOGY NO: PAGE 1 Signed ReportBUN [id number] 07:02:00 Test Item Value Reference Range Interpretation Comments BLOOD UREA NITROGEN 9 MG/DL 7-17 N (test code = BUN) GLOMERULAR FILTRATION > 60 Report ing units: RATE (test code = GFR) ml/mi n/1.73 m2 (Modified MDRD Formula)Referen ce Range: > or = 6 0 ml/min/1.73 m2 CREATININE (test code 0.70 MG/DL 0.52-1.04 N = CREAT) BASIC METABOLIC [id number] 14:53:00 Test Item Value Reference Range Interpretation [...] 9.2 MG/DL 8.4-10.2 N CA) Comments to Security Field Supervisor: draw after picc line inserted today- FLUORO GUID CTRL ACC [id number] 14:44:00 Patient Name: LEIGH FRYE Unit No: [id number] EXAMS: CPT CODE: [id number] FLUORO GUID CTRL ACC DEV 30414 EXAMINATION: NON-TUNNELED CENTRAL VENOUS CATHETER PLACEMENT. LOCATION: B2. HISTORY: Pneumonia and recent pituitary adenoma resection. SEDATION: The patient did not require conscious sedation for the procedure. RADIATION DOSE: Total reference air kerma 7.42 mGy. ANTIBIOTICS: None. Not indicated. CONTRAST: None. TECHNIQUE: The risks, benefits, and alternatives were discussed and informed consent was obtained. Prior to beginning the procedure, Ol[place] Protocol was used to confirm thepatient's identity and planned procedure. Maximum sterile barriers including cap, mask, hand hygiene, sterile gloves, sterile gown, large sterile drape and cutaneous antisepsis were used. The skin overthe right basilic vein was sterilely prepped, draped, [...] to the right atrium was assessed. After dilatingthe tract, a dual-lumen PICC was inserted over [...] PICC placement via the right basilic vein. [facility] NAME: LEIGH FRYE [id number] PHYS: [place] [address] : 1980 AGE: 38 SEX: F LOC: Z.504 A PHONE #: [phone] EXAM DATE: 09/08/2018 STATUS: ADM IN FAX #: [phone] RADIOLOGY NO: PAGE 1 Signed Report (CONTINUED) Patient Name: LEIGH FRYE Unit No: [id number] EXAMS: CPT CODE: [id number] FLUORO GUID CTRL ACC DEV 31334 (Continued) PLAN: The catheter is ready for immediate use. When treatment is completed, this catheter can be removed at the bedside according to standard hospital protocol. dry room operator: Jacqueline Fleming PA-C. at 1444 Reported and signed by: Alireza Pepe MD CC: Technologist: Laney Soto, ROCHELLE, RT(R) Transcrpt Date/Tm/Trnsp: 09/08/2018 (4454) t.SDR.PR7 Orig Print D/T: S: 09/08/2018 (9969) [facility] NAME: LEIGH FRYE [address] PHYS: [place] [address] : 1980 AGE: 38 SEX: F LOC: Z.504 A PHONE #: [phone] EXAM DATE: 09/08/2018 STATUS: ADM IN FAX #: [phone] RADIOLOGY NO: PAGE 2 Signed Report- US GUIDANCE [facility] [id number] 14:44:00 Patient Name: LEIGH FRYE Unit No: [id number] EXAMS: CPT CODE: [id number] US GUIDANCE [facility] ACCESS 65968 EXAMINATION: NON-TUNNELED CENTRAL VENOUS CATHETER PLACEMENT. LOCATION: B2. HISTORY: Pneumonia and recent pituitary adenoma resection. SEDATION: The patient did not require conscious sedation for the procedure. RADIATION DOSE: Total reference air kerma 7.42 mGy. ANTIBIOTICS: None. Not indicated. CONTRAST: None. TECHNIQUE: The risks, benefits, and alternatives were discussed and informedconsent was obtained. Prior to beginning the procedure, Olney Protocol was used to confirm the patient's [...] guidewire and through a peel-away sheath. The adilson ter was flushed and secured in place. A sterile dressing was applied. ESTIMATED BLOOD LOSS: Less than 30 milliliters. COMPLICATIONS: None. DISCHARGED TO: Inpatient unit. FINDINGS: Ultrasound demonstrates a patent right basilic vein. The final fluoroscopic image demonstrates the catheter with its tip at the cavoatrial junction. No complications are seen. IMPRESSION: Successful non- tunneled PICC placement via the right basilic vein. [facility] NAME: LEIGH FRYE41 Js PHYS: [place] [address] : 1980 AGE: 38 SEX: F LOC: Z.504 A PHONE #: [phone] EXAM DATE: 09/08/2018 STATUS: ADM IN FAX #: [phone] RADIOLOGY NO: PAGE 1 Signed Report (CONTINUED) Patient Name: LEIGH FRYE Unit No: [id number] EXAMS: CPT CODE: [id number] US GUIDANCE [facility] ACCESS [address] (Continued) PLAN: The catheter is ready for immediate use.When treatment is completed, this catheter can be removed at the bedside according to standard hospital protocol. dry room operator: Jacqueline Fleming PA-C. at 1444 Reported and signed by: Alireza Pepe MD CC: Technologist: ROCHELLE Umana,RT(R) Transcrpt Date/Tm/Trnsp: 09/08/2018 (1444) t.[email or web address].PR7 Orig Print D/T: S: 09/08/2018 (1441) [facility] NAME: LEIGH FRYE PHYS: [place] [address] : 1980 AGE: 38 SEX: F LOC: Z.504 A PHONE #: [phone] EXAM DATE:09/08/2018 STATUS: ADM IN FAX #: [phone] RADIOLOGY NO: PAGE 2 Signed ReportB-TYPE NATRIURETIC [id number] 13:13:00 Test Item Value Reference Range Interpretation Comments B-TYPE NATRIURETIC PEPTIDE (test 222.0 PG/ML 0-100 H code = BNP) [id number] 12:39:00 Test Item Value Reference Range Interpretation Comments HOMOCYSTEINE (test code 6.3 umol/L 0.0-15.0 Perf ormed At: HD = HOMOCY) [facility] [address] [id number] Valles MD Ph:[phone] PATIENT IS A HARD STICK. UNABLE TO GET BLOOD SAMPLE.NOTIFIED PATIENT CARE STAFF: JANET HERNANDEZON 09/06/18 AT 1427 BY TANNERALG - VEIN FINDER USED.PER CHUCKIE HERNANDEZ ADRENOCORTICOTROPIC [id number] 07:16:00 Test Item Value Reference Range Interpretation Comments ADRENOCORTICOTROPIC HORMONE 16.3 pg/mL 7.2-63.3 ACTH reference (test code = ACTH) interval for samples collected between 7 and10 AM.Performed At : [facility] [address] [id number] Valles MD Ph:[phone] - XR CHEST 2 [id number] 17:42:00 Patient Name: LEIGH FRYE Unit No: [id number] EXAMS: CPT CODE: [id number] XR CHEST 2 V 78661 Chest Radiographs, 2 views. Location: B2 Clinical Indication: 38-year-old with right lower lobe a spiration pneumonia Comparison: September 04, 2018 Findings: PA [...] Valles M.D. CC: Technologist: Sana Porter RT(R) Transcrpt Date/Tm/Trnsp: 09/07/2018 (1742) ManuelRB24 Orig Print D/T: S: 09/07/2018 (8389) [facility] NAME: LEIGH FRYE [address] PHYS: [place] [address] : 1980 AGE: 38 SEX: F LOC: ZKoby504 A PHONE #: [phone] EXAM DATE: 09/07/2018 STATUS: ADM IN FAX #: [phone] RADIOLOGY NO: PAGE 1 Signed ReportVANCOMYCIN [id number] 03:58:00 Test Item Value Reference Range Interpretation Comments VANCOMYCIN TROUGH (test code = 10.7 UG/ML 10.0-20.0 N VANCT) CORTISOL [id number] 12:02:00 Test Item Value Reference Range Interpretation Comments CORTISOL AM (test code = CORTAM) 19.70 ug/dL 4.46-22.7 UR 17 [id number] 07:38:00 Test Item Value Reference Range Interpretation Comments UR 17 HYDROXYCORTICOSTEROIDS MG/24HR 4.0-14.0 Hours Collected (test code = 17HCST) 24 hr T otal Volume 3500 mL Creatinine, Urine - per vqdrce63 mg/dL Creatinine, Urine - per 24h 1400 mg/d 700 - 1600 17Hydroxycortic o ster. mg/g CLAIMS ADJUSTER SUPERVISOR <5.0 mg/gCR 2.0 - 6.5 17 OH-Corticostero i ds mg/day <7.0 mg/d 4.0 - 14.0 CORTISOL [id number] 19:42:00 Test Item Value Reference Range Interpretation Comments CORTISOL PM (test code = CORTPM) 9.97 mcg/dL 3.09-16.66 N [id number] 13:04:00 Test Item Value Reference Range Interpretation Comments VANCOMYCIN (test code = VANCO) 10.6 mcg/ML 5.0-26.0 N BASIC METABOLIC [id number] 08:39:00 Test Item Value Reference Range Interpretation [...] code = 8.8 MG/DL 8.4-10.2 N CA) [id number] 08:39:00 Test Item Value Reference Range Interpretation Comments MAGNESIUM (test code = MAG) 1.9 MG/DL 1.6-2.3 N HGB [id number] 08:35:00 Test Item Value Reference Range Interpretation Comments HEMOGLOBIN (test code = HGB) 7.5 G/DL 11.2-14.9 L HEMATOCRIT (test code = HCT) 24.7 % 33.2-43.5 L WHITE BLOOD [id number] 08:35:00 Test Item Value Reference Range Interpretation Comments WHITE BLOOD CELL (test code = WBC) 5.7 K/MM3 3.8-9.8 N UR 17 KETOGENIC [id number] 08:13:00 Test Item Value Reference Interpretation Comments Range UR 17 KETOGENIC mg/24 hr 3.0-15.0 Cortisol, Ur inary Free STEROIDS (test Cortisol,F,ug /L,U A 59 ug/L code = 17KETGU) Undefined Co rtisol,F,ug/24hr,U 136 High ug/24 hr 6 - 42 Comments:A This test was developed and i ts performancechar acteristics determined by[facility]. It has not been cleare d or approved by the Food andDru gAdministration. ADRENOCORTICOTROPIC [id number] 07:27:00 Test Item Value Reference Range Interpretation Comments ADRENOCORTICOTROPIC HORMONE 8.5 pg/mL 7.2-63.3 ACTH reference (test code = ACTH) interval for samples collect ed between 7 and10 AM.Performed At : [facility] [address] [place], [place] [id number] yovany Valles MD Ph:[phone] PROCALCITONIN (PCT)2018-09-05 06:48:00 Test Item Value Reference [...] < 2 ng/mL are obtai keanu. CORTISOL [id number] 06:28:00 Test Item Value Reference Range Interpretation Comments CORTISOL AM (test code = CORTAM) 5.71 ug/dL 4.46-22.7 VANCOMYCIN [id number] 05:58:00 Test Item Value Reference Range Interpretation Comments VANCOMYCIN TROUGH (test code = 20.8 UG/ML 10.0-20.0 H VANCT) CORTISOL [id number] 17:52:00 Test Item Value Reference Range Interpretation Comments CORTISOL PM (test code = CORTPM) 11.10 mcg/dL 3.09-16.66 B-TYPE NATRIURETIC [id number] 10:19:00 Test Item Value Reference Range Interpretation Comments B-TYPE NATRIURETIC PEPTIDE (test 151.0 PG/ML 0-100 H code = BNP) Comments to Security Field Supervisor: add on to blood in labPROCALCITONIN (PCT)2018-09-04 [...] 2 ng/mL are obtai keanu. Comments to Security Field Supervisor: add on to blood in [id number] 09:10:00 Test Item Value Reference Range Interpretation Comments TROPONIN-I (test code = TROPI) < 0.012 NG/ML 0.012-0.033 L LACTIC [id number] 09:02:00 Test Item Value Reference Range Interpretation Comments LACTIC ACID (test code = LACT) 0.9 MMOL/L 0.7-2.1 N CBC W/AUTO [id number] 07:29:00 Test Item Value Reference Range Interpretation [...] = 0.00 K/mm3 0.0-0.1 N NRBC#) DIFFERENTIAL [id number] 07:29:00 Test Item Value Reference Range Interpretation [...] are obtai keanu. - CTA CHEST FOR [id number] 06:14:00 Patient Name: LEIGH FRYE Unit No: [id number] EXAMS: CPT CODE: [id number] [place] [address] DICTATION LOCATION: H48 HISTORY: Female, 38 years [...] upper lobe and right middle lobe. Mild interstitialopacities are seen in both lower lobes and left upper lobe. No significant emphysema. No tracheobronc hial filling defects. OTHER: Images through the upper [...] Reported and signed by: Deanne Boyer MD [facility] NAME: MELVAOLEG NANCEJerrod [address] [address] [address] PHYS: [place] [address] : 1980 AGE: 38 SEX: F LOC: Z.SI08 A PHONE #: [phone] EXAM DATE:09/04/2018 STATUS: ADM IN FAX #: [phone] RAD #: D/C DT PAGE 1 Signed Report (CONTINUED) Patient Name: LEIGH FRYEINE Unit No: [id number] EXAMS: CPT CODE: [id number] [place] [address](Continued) CC: Bear Wells MD Technologist: URIEL BAROTN RT(R)(CT)(MR) CTDI: DLP: Trnscrpt: 09/04/2018 (0614) t.SDR.CLW [facility] NAME: MELVALEIGH Weinstein PHYS: [place] [address] : 1980 AGE: 38 SEX: F LOC: Z.SI08 A PHONE #: [phone] EXAM DATE: 09/04/2018 STATUS: ADM IN FAX #: [phone] RAD #: D/C DT PAGE 2 Signed Report Patient Name: LEIGH FRYE Unit No: [id number] EXAMS: CPT CODE: [id number] [place] [address] (Continued) Orig Print D/T: S: 09/04/2018 (0838) [facility] NAME: LEIGH FRYE [address] PHYS: [place] [address] : 1980 AGE: 38 SEX: F LOC: Z.SI08 A PHONE #: [phone] EXAM DATE: 09/04/2018 STATUS: ADM IN FAX #: [phone] RAD #: D/C DT PAGE 3 Signed ReportGLUCOSE BEDSIDE [id number] 06:09:00 Test Item Value Reference Range Interpretation Comments GLUCOSE BEDSIDE TESTING (test code = 99 MG/DL 60-99 N GLUBED) CORTISOL [id number] 06:04:00 Test Item Value Reference Range Interpretation Comments CORTISOL AM (test code = CORTAM) 3.62 ug/dL 4.46-22.7 L BASIC METABOLIC [id number] 05:38:00 Test Item Value Reference Range Interpretation [...] 9.0 MG/DL 8.4-10.2 N CA) HEPATIC FUNCTION [id number] 05:38:00 Test Item Value Reference Range Interpretation [...] code = 114 UNITS/L 38-126 N ALKP) [id number] 05:38:00 Test Item Value Reference Range Interpretation Comments MAGNESIUM (test code = MAG) 2.0 MG/DL 1.6-2.3 N [id number] 05:38:00 Test Item Value Reference Range Interpretation Comments TROPONIN-I (test code = TROPI) < 0.012 NG/ML 0.012-0.033 L LACTIC [id number] 05:33:00 Test Item Value Reference Range Interpretation Comments LACTIC ACID (test code = LACT) 1.2 MMOL/L 0.7-2.1 N BASIC METABOLIC [id number] 05:33:00 Test Item Value Reference Range Interpretation [...] 9.0 MG/DL 8.4-10.2 N CA) HEPATIC FUNCTION [id number] 05:33:00 Test Item Value Reference Range Interpretation [...] code = 114 UNITS/L 38-126 N ALKP) [id number] 05:33:00 Test Item Value Reference Range Interpretation Comments MAGNESIUM (test code = MAG) 2.0 MG/DL 1.6-2.3 N [id number] 05:33:00 Test Item Value Reference Range Interpretation Comments TROPONIN-I (test code = TROPI) NG/ML 0.0-0.045 PROTHROMBIN [id number] 05:27:00 Test Item Value Reference Range Interpretation [...] myocar dial infarction. 2.0 - 3.0 3. Keg Filler al prosthesis hear t valves, recurre nt systemic emboli sm. 3.0 - 4.5 PTT [id number] 05:27:00 Test Item Value Reference Range Interpretation Comments PTT ACTIVATED (test code = APTT) 27.5 SECONDS 22.0-33.0 N CBC W/AUTO [id number] 05:10:00 Test Item Value Reference Range Interpretation [...] = 0.00 K/mm3 0.0-0.1 N NRBC#) DIFFERENTIAL [id number] 05:10:00 Test Item Value Reference Range Interpretation Comments RBC MORPHOLOGY REQUIRED (test code = RBCM) PLATELET ESTIMATE (test code = PLTEST) ADEQUATE PLATELET MORPHOLOGY (test code = NORMAL PLTMORPH) CBC W/AUTO [id number] 05:10:00 Test Item Value Reference Range Interpretation [...] = 0.00 K/mm3 0.0-0.1 N NRBC#) DIFFERENTIAL [id number] 05:10:00 Test Item Value Reference Range Interpretation Comments RBC MORPHOLOGY REQUIRED (test code = RBCM) PLATELET ESTIMATE (test code = PLTEST) ADEQUATE PLATELET MORPHOLOGY (test code = NORMAL PLTMORPH) - XR CHEST [id number] 04:59:00 Patient Name: LEIGH FRYE Unit No: [id number] EXAMS: CPT CODE: [id number] XR CHEST 1V 64756 EXAM: - XR CHEST 1V Location code:C3 HISTORY: RESP FAILURE COMPARISON: None available time of inte rpretation. FINDINGS: 2 AP views of the chest are provided. Heart size and vascularity are within normal limits. Patchy consolidation of the right lung base is seen. The left lung is clear. There is nopneumothorax. IMPRESSION: 1. Patchy consolidation at the right lung base concerning for pneumonia isseen. at 2308 Reported and signed by: Cabrera Ngo MD CC: Bear Wells MD Technologist: Francesco Covarrubias, RT(R) Transcrpt Date/Tm/Trnsp: 09/04/2018 (0459) [id number] Orig Print D/T: S: 09/04/2018 (6812) [facility] NAME: LEIGH FRYE [id number] [address] PHYS: [place] [address] : 1980 AGE: 38 SEX: F LOC: Z.531 A PHONE #: [phone] EXAM DATE: 09/04/2018 STATUS: ADM IN FAX #: [phone] RADIOLOGY NO: PAGE 1 Signed ReportPOC ARTERIAL BLOOD [id number] 04:48:00 Test Item Value Reference Range Interpretation Comments POC ARTERIAL BLOOD GAS PH 7.392 7.35-7.45 N (test code = POCPHA) POC ARTERIAL BLOOD GAS PCO2 46.8 mmHg 35.0-45.0 H (test code = ZSGEJP4A) POC ARTERIAL BLOOD GAS PO2 95 75.0-100.0 N (test code = ALHBX5L) POC HCO3 ARTERIAL (test code 28.4 MMOL/L 20.0-26.0 HH = DSAZEI8E) POC BASE EXCESS (test code = 4.0 MMOL/L -3.0-3.0 H POCBEA) POC O2 SATURATION (test code 97 % 92.0-98.5 N = POCO2S) FIO2 (test code = FIO2A) 100 % 21-100 N ABG DELIVERY (test code = NonRb Mask KIRILL) ABG SITE (test code = SITEA) L Brachial ALLENS TEST (test code = N/A CHECK Ntfd/RBV~ ALLENS) CBC W/AUTO [id number] 12:05:00 Test Item Value Reference Range Interpretation [...] = 0.00 K/mm3 0.0-0.1 N NRBC#) DIFFERENTIAL [id number] 12:05:00 Test Item Value Reference Range Interpretation Comments RBC MORPHOLOGY REQUIRED (test code = ABNORMAL RBCM) ANISOCYTOSIS (test code = ANISO) SLIGHT NONE ELLIPTOCYTES (test code = ELL) FEW NONE OVALOCYTES (test code = OVAL) MODERATE NONE PLATELET ESTIMATE (test code = ADEQ ADEQUATE PLTEST) PLATELET MORPHOLOGY (test code = NORMAL NORMAL PLTMORPH) CORTISOL [id number] 07:11:00 Test Item Value Reference Range Interpretation Comments CORTISOL AM (test code = CORTAM) 1.20 ug/dL 4.46-22.7 L CORTISOL [id number] 07:11:00 Test Item Value Reference Range Interpretation Comments CORTISOL PM (test code = CORTPM) 1.20 mcg/dL 3.09-16.66 L BASIC METABOLIC [id number] 06:39:00 Test Item Value Reference Range Interpretation [...] 9.1 MG/DL 8.4-10.2 N CA) CBC W/AUTO [id number] 06:30:00 Test Item Value Reference Range Interpretation [...] = 0.00 K/mm3 0.0-0.1 N NRBC#) DIFFERENTIAL [id number] 06:30:00 Test Item Value Reference Range Interpretation Comments RBC MORPHOLOGY REQUIRED (test code = RBCM) PLATELET ESTIMATE (test code = PLTEST) ADEQUATE PLATELET MORPHOLOGY (test code = NORMAL PLTMORPH) CBC W/AUTO [id number] 06:30:00 Test Item Value Reference Range Interpretation [...] = 0.00 K/mm3 0.0-0.1 N NRBC#) DIFFERENTIAL [id number] 06:30:00 Test Item Value Reference Range Interpretation Comments RBC MORPHOLOGY REQUIRED (test code = RBCM) PLATELET ESTIMATE (test code = PLTEST) ADEQUATE PLATELET MORPHOLOGY (test code = NORMAL PLTMORPH) UA SPECIFIC [id number] 23:35:00 Test Item Value Reference Range Interpretation Comments UA SPECIFIC GRAVITY (test code = SGU) 1.025 1.003-1.030 N [id number] 23:22:00 Test Item Value Reference Range Interpretation Comments CORTISOL (test code = CORTR) 1.65 ug/dL 1.7-22.7 L [id number] 22:53:00 Test Item Value Reference Range Interpretation Comments SODIUM (test code = NA) 143 MMOL/L 137-145 N [id number] 17:47:00 Test Item Value Reference Range Interpretation Comments CORTISOL (test code = CORTR) 5.32 ug/dL 1.7-22.7 [id number] 17:06:00 Test Item Value Reference Range Interpretation Comments SODIUM (test code = NA) 144 MMOL/L 137-145 N UR CATECHOLAMINE [id number] 12:47:00 Test Item Value Reference Interpretation Comments [...] At : [facility] (test code = hr [id number] [facility] DOPAU24) [place], [place] [id number] ra Kristen VELASCO Ph:[phone] VENOUS THROMBOPHILIA [id number] 07:49:00 Test Item Value Reference Range Interpretation [...] ference Range:57 - 163 Antithrombi n Activity, Xqusxb057 % Dir ect oral anticoagulants such as [...] costa and its performance characteristics determined by [employer]. It has not been cleared or approvedby [facility] Food and Drug Administration. APTT 23.1 sec This test has not be en validated for monitoringunfra ctionated heparin therapy. aPTT-b ased therapeuticrang es for unfractionated heparin therapy have not beenes tablished. Consider ordering Hepari n anti-Xa(unfract ionated).Reference Range:18 years and older: 22.9 - 30.2APTT 1:1 TILE SPRAYER Testing Not Indicated Not i ndicatedAPTT 1:1 [...] for definitive anti phospholipid syndrome (APS). JThromb Astj8335;4:295- 306.Reference Range:Negative: <21Beta-2 Glycoprotein I, IgM <10 SMU The reference inter pb reflects a 3SD or 99th percent ileinterval, which is thought to r epresent a potentiallyclin ically significant result in accor dance with theInternationa l Consensus Statement on th e classificationc riteria for definitive anti phospholipid syndrome (APS). JThromb Yeld2915;4:295- 306.Reference Range:Negative: <33Beta-2 Glycoprotein I, IgA <10 DERIAN The reference inter pb reflects a 3SD or 99th percentileinter pb.Reference Range:Negative: <26 Factor II Gene Mutation Result G-G (Normal-Normal) No prothrombin L40409L mutatio n present.Interpr etation: While the patient [...] For in stance, acombination of the prothrombin Y42938E mutatio n and thefactor V Leiden mutation may confer an increase inthro mbotic risk in the range of 20-30 fold.Recommenda tions for Genetic Counseling: The prothrombingene mutation is an inherited characteristic. If themutation is present, we rec ommend that the patient andthei r family consider genetic clinical mental health counselor ing to obtainadditiona l information on inheritance and to identify otherfamily mem bers at risk.Testing Ch aracteristics: Genetic testing providesexcepti onally high sensitivity and specificity. Inaccurateresul ts are limited to rare polymorphi sms in primer bindingsites an d to misidentificati on of specimens by collectorsor la boratory personnel. This assay dete cts only theprothrombin K49899P mutation and does not de tect othergenetic abnormalities.T his test was developed and i ts performance characteristics determined by [facility]. It has not been cleared or approvedby t Food and Drug Administration. References: Presley K, et al. Br J of Haem. 1997;98:907.Alexsander graham AM, et al. Br J of Haem. 1997 ;98:353. Jas-Vic hunter and Garcia Mol.Diagn. 2001 ;6(3):201.Rodri J, et al. Throm b Haemost. 2001;86:809-16. Jayda M, et al. Thromb Haem ost. 1999;82:1583. Factor [...] For in stance, acombination of the prothrombin J88799Y mutatio n and thefactor V Leiden mutation may confer an increase inthro mbotic risk in the range of 20-30 fold.Recommenda tions for Genetic Counseling: The factor V Leidenmutation is an inherited characteristic. If the mutation ispresent, we r ecommend that the patient and the ir familyconsider genetic clinical mental health counselor ing to obtain additionalinfor mation on [...] and Drug Administration. VENOUS THROMBOSIS PROFILETEST CODE: [id number]: THREE TUBES, 2 ML PPP EACH, FROZEN 2 ML SERUM FROZEN 5 ML EDTA WHOLE BLOOD, ROOM TEMP.UR METANEPHRINES [facility] 2018-09-02 07:36:00 Test Item Value Reference Interpretation [...] code = mcg/24h NORMETUR) UR HYDROXYINDOLEACETIC ACID [id number] 07:36:00 Test Item Value Reference Range Interpretation Comments UR HYDROXYINDOLEACETIC 3.9 mg/24 hr 0.0-14.9 Perfo rmed At: BN ACID QT (test code = [facility] 5HIAAU) [address] [id number] Peterson MD Ph:[phone] UR VOLUME (test code = 3500 ML 800-1800 H VOL) ADRENOCORTICOTROPIC [id number] 07:22:00 Test Item Value Reference Range Interpretation Comments ADRENOCORTICOTROPIC HORMONE 14.7 pg/mL 7.2-63.3 ACTH reference (test code = ACTH) interval for samples collected between 7 and10 AM.Performed At : [facility] [id number] Etienne Valles MD Ph:[phone] UR METANEPHRINES [id number] 07:22:00 Test Item Value Reference Interpretation Comments [...] (test code = NORMETUR) UR HYDROXYINDOLEACETIC ACID [id number] 07:22:00 Test Item Value Reference Range Interpretation Comments UR HYDROXYINDOLEACETIC 3.9 mg/24 hr 0.0-14.9 Perfo rmed At: BN ACID QT (test code = [facility] 5HIAAU) [address] [id number] Peterson MD Ph:[phone] UR VOLUME (test code = 3500 ML 800-1800 H VOL) [id number] 07:12:00 Test Item Value Reference Range Interpretation Comments CORTISOL (test code = CORTR) 3.43 ug/dL 1.7-22.7 UA SPECIFIC [id number] 06:36:00 Test Item Value Reference Range Interpretation Comments UA SPECIFIC GRAVITY (test code = SGU) 1.010 1.003-1.030 N BASIC METABOLIC [id number] 06:03:00 Test Item Value Reference Range Interpretation [...] 9.1 MG/DL 8.4-10.2 N CA) CBC W/AUTO [id number] 05:41:00 Test Item Value Reference Range Interpretation [...] = 0.00 K/mm3 0.0-0.1 N NRBC#) DIFFERENTIAL [id number] 05:41:00 Test Item Value Reference Range Interpretation Comments RBC MORPHOLOGY REQUIRED (test code = RBCM) PLATELET ESTIMATE (test code = PLTEST) ADEQUATE PLATELET MORPHOLOGY (test code = NORMAL PLTMORPH) CBC W/AUTO [id number] 05:41:00 Test Item Value Reference Range Interpretation [...] = 0.00 K/mm3 0.0-0.1 N NRBC#) DIFFERENTIAL [id number] 05:41:00 Test Item Value Reference Range Interpretation Comments RBC MORPHOLOGY REQUIRED (test code = RBCM) PLATELET ESTIMATE (test code = PLTEST) ADEQUATE PLATELET MORPHOLOGY (test code = NORMAL PLTMORPH) UA SPECIFIC [id number] 22:47:00 Test Item Value Reference Range Interpretation Comments UA SPECIFIC GRAVITY (test code = SGU) 1.015 1.003-1.030 N [id number] 21:35:00 Test Item Value Reference Range Interpretation Comments CORTISOL (test code = CORTR) 4.12 ug/dL 1.7-22.7 [id number] 20:56:00 Test Item Value Reference Range Interpretation Comments SODIUM (test code = NA) 141 MMOL/L 137-145 N PITUITARY [id number] 14:40:00 RUN DATE: 09/01/18 [place] - LAB PAGE 1 RUN TIME: 1440 Specimen Inquiry RUN USER: INTERFACE PATIENT: LEIGH FRYE LOC: DELL U #: [id number] AGE/SX: 38/F ROOM: [facility] RE08/25/18[facility] DR: Jani Mckoy MD : 80 BED: A DIS: STATUS: ADM IN TLOC: SPEC #: [id number]:[id number] RECD: 08/30/18 STATUS: SOUFred REQ #: [id number] LAST: 08/30/18 [facility] DR: Jani Mckoy MD ENTERED: 08/30/18 SP TYPE: PITUIT OTHR DR: Matilde Burnham DPM Ozzy Viera MDORDERED: FS, IMNO, RETIC, SURG PATH LVL 4/2, MORPH IHC, TOUCH PREP EA A, IMMUNO EA ADD'L/4 CODES: [id number] - EXCISIONAL BIOP SA9257 - PITUITARY GLAND RW8637 G33920 - PITUITARY GLAND ADENOMA, NOS II7346 U81249 - CELL, NOS ADENOMA, NOS DD1992 C35735- CELL, NOS ACIDOPHIL ADENO [place]IES [place]: [place] [address] [place] [address] Matilde Burnham DPEden [address] [place] [address] [place] [address] [place] [address] PROCEDURES: FS (08/30/18) IMNO (08/31/18) RETIC (08/31/18) SURG PATH LVL 4 (08/30/18) MORPH IHC (08/31/18) TOUCH PREP EA A (08/30/181505) IMMUNO EA ADD'L (08/31/18) TISSUES: A. PITUITARY GLAND, NOS - PITUITARY TUMOR B. PITUITARY GLAND, NOS - PITUITARY TUMOR CONSULTATION Dr. Lubin has reviewed this case and agrees with the diagnosis. CONTINUED ON NEXT PAGE RUN DATE: 09/01/18 [facility] LAB PAGE 2 RUN TIME: 1440 Specimen Inquiry RUN USER: INTERFACE SPEC #: [id number]:[id number] PATIENT: LEIGH FRYE #[id number] (Continued)- CPT CODES CPT CODE(S): 26427A9 , 95168 , 18857 , 92303 , 24333Y2 , 13994 , FINAL DIAGNOSIS A. and B. 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 Pituitary tumor: [...] Crooke's hyaline. CK7: Negative. CK20: Negative. Ki-67: Verylow proliferative rate (5% or less). No highlighted mitoses. /latia/cm Additional CPT code(s): 61570 CONTINUED ON NEXT PAGE RUN DATE: 09/01/18 [place] - LAB PAGE 3 RUN TIME: 1440 Specimen Inquiry RUN USER: INTERFACE SPEC #: [id number]:[id number] PATIENT: LEIGH FREY #[id number] (Continued) COMMENT: Sufficient tissue is on reserve to accomplish histologic hormone studies, as clinically appropriate. The permanent section evaluation confirms the gross intraoperative frozen section and touch prep impressions. Signed SIGNATURE ON FILE Cabrera George 09/01/18 1440 END OF REPORT [id number] 14:39:00 Test Item Value Reference Range Interpretation Comments CORTISOL (test code = CORTR) 9.19 ug/dL 1.7-22.7 [id number] 14:05:00 Test Item Value Reference Range Interpretation Comments SODIUM (test code = NA) 142 MMOL/L 137-145 N UNABLE TO DRAW BLOOD, REASON:UA SPECIFIC [id number] 13:41:00 Test Item Value Reference Range Interpretation Comments UA SPECIFIC GRAVITY (test code = SGU) 1.020 1.003-1.030 N UA SPECIFIC [id number] 09:02:00 Test Item Value Reference Range Interpretation Comments UA SPECIFIC GRAVITY (test code = SGU) 1.015 1.003-1.030 N [id number] 08:19:00 Test Item Value Reference Range Interpretation Comments SODIUM (test code = NA) 144 MMOL/L 137-145 N UR METANEPHRINES [id number] 07:28:00 Test Item Value Reference Range Interpretation Comments UR METANEPHRINES 24HR (test code = mcg/24h 35-460 MET24T) UR METANEPHRINES (TOTAL) (test code ug/L = METTU) NORMETANEPHRINE (test code = ug/L NORMETT) NORMETANEPHRINE 24 HR (test code = mcg/24h 82-500 NORMETUR) UR HYDROXYINDOLEACETIC ACID [id number] 07:28:00 Test Item Value Reference Range Interpretation Comments UR HYDROXYINDOLEACETIC 3.9 mg/24 hr 0.0-14.9 Perfo rmed At: BN ACID QT (test code = [facility] 5HIAAU) [address] [id number] tammy Peterson MD Ph:[phone] UR VOLUME (test code = 3500 ML 800-1800 H VOL) UR METANEPHRINES [id number] 07:23:00 Test Item Value Reference Range Interpretation Comments UR METANEPHRINES 24HR (test code = mcg/24h 35-460 MET24T) UR METANEPHRINES (TOTAL) (test code ug/L = METTU) NORMETANEPHRINE (test code = ug/L NORMETT) NORMETANEPHRINE 24 HR (test code = mcg/24h 82-500 NORMETUR) UR HYDROXYINDOLEACETIC ACID [id number] 07:23:00 Test Item Value Reference Range Interpretation Comments UR HYDROXYINDOLEACETIC 3.9 mg/24 hr 0.0-14.9 Perfo rmed At: ACID QT (test code = [facility] 5HIAAU) [address] [id number] Peterson MD Ph:[phone] UR VOLUME (test code = ML 800-1800 VOL) AB PARIETAL [id number] 07:22:00 Test Item Value Reference Range Interpretation Comments AB PARIETAL CELL 4.10 Units 0.0-20.0 Negative 0 .0 - 20.0 (test code = Equivocal 20.1 - 24.9 PARIETALAB) Positive >24.9P arietal Cell Antibodies are found in 90% of patie ntswith pernicious anem ia and 30% of first degree relatives with pernicious anemia.Performe d At: [facility] [id number] ra Kristen VELASCO Ph:[phone] [id number] 07:22:00 Test Item Value Reference Interpretation Comments Range ALDOSTERONE < 1.0 0.0-30.0 This test was d eveloped and (test code = ng/dL its performance ALDOS) characteristics determined by [facility]. It has not been cleared orappro angela by the Food and Drug Administration. Performed At: [facility] [id number] Peterson MD Ph:[phone]~~ ~~~~~~~~~~~~~~~ ~~~~~~~~~~~~~~~ ~~~~~~~~~~~~~~~ ~~~~~~~~~~~~~AL DOSTERONE REFERENCE RANGE S: SUPINE......... 0 - 15.9 NG/DL UPRIGHT........ ..4 - 39 NG/DL ADRENAL VEIN..2 00 - 800 NG/DL NORMAL SODIUM I NTAKE (100 - 200 MEQ/DAY)~~~~~~~ ~~~~~~~~~~~~~~~ ~~~~~~~~~~~~~~~ ~~~~~~~~~~~~~~~ ~~~~~~~~ CBC W/AUTO [id number] 06:29:00 Test Item Value Reference Range Interpretation [...] = 0.00 K/mm3 0.0-0.1 N NRBC#) PROTHROMBIN [id number] 06:22:00 Test Item Value Reference Range Interpretation Comments PROTHROMBIN TIME 10.1 SECONDS 9.6-11.6 N PATIENT (test code = PTP) INTERNATIONAL NORMAL 1.0 0.8-1.1 N The INR is to be RATIO (test code = used only for INR) monitoring oral anticoagulantth erap y. INDICATION INR VALUE ---- ---- ---- -------1. Prophylaxis, de ep venous thrombos is, including high risk surgery. 2.0 - 3.0 2. Prophylaxis, deep venous thrombosis, hip surgery, treatm ent for deep venous thrombosis or pulmonary prevention of systemic emboli sm in patients wit h valvular heart disease, atrial fibrillation, tissue heart va lve, or acute myocar dial infarction. 2.0 - 3.0 3. Keg Filler al prosthesis hear t valves, recurre nt systemic emboli sm. 3.0 - 4.5 PTT [id number] 06:22:00 Test Item Value Reference Range Interpretation Comments PTT ACTIVATED (test code = APTT) 25.0 SECONDS 22.0-33.0 N BASIC METABOLIC [id number] 04:51:00 Test Item Value Reference Range Interpretation [...] 8.8 MG/DL 8.4-10.2 N CA) UA SPECIFIC [id number] 03:20:00 Test Item Value Reference Range Interpretation Comments UA SPECIFIC GRAVITY (test code = SGU) 1.005 1.003-1.030 N [id number] 23:45:00 Test Item Value Reference Range Interpretation Comments SODIUM (test code = NA) 142 MMOL/L 137-145 N [id number] 21:37:00 Test Item Value Reference Range Interpretation Comments SODIUM (test code = NA) 141 MMOL/L 137-145 N UA SPECIFIC [id number] 20:17:00 Test Item Value Reference Range Interpretation Comments UA SPECIFIC GRAVITY (test code = SGU) 1.010 1.003-1.030 N UA SPECIFIC [id number] 17:42:00 Test Item Value Reference Range Interpretation Comments UA SPECIFIC GRAVITY (test code = SGU) 1.015 1.003-1.030 N [id number] 16:52:00 Test Item Value Reference Range Interpretation Comments SODIUM (test code = NA) 139 MMOL/L 137-145 N [id number] 11:35:00 Test Item Value Reference Range Interpretation Comments SODIUM (test code = NA) 140 MMOL/L 137-145 N UA SPECIFIC [id number] 08:28:00 Test Item Value Reference Range Interpretation Comments UA SPECIFIC GRAVITY (test code = SGU) 1.010 1.003-1.030 N UR SODIUM [id number] 08:28:00 Test Item Value Reference Range Interpretation Comments UR SODIUM RANDOM (test code = BRIGIDO) 91 MMOL/L 27-287 N - CT HEAD/BRAIN W/O [id number] 08:17:00 Patient Name: LEIGH FRYE Unit No: [id number] EXAMS: CPT CODE: [id number] CT HEAD/BRAIN W/O CONT 20124 Dictation location: U19. CT HEAD WITHOUT CONTRAST. [...] RT(R)(CT) CTDI: DLP: Trnscrpt: 08/31/2018 (0817) t.SDR.[id number] [facility] NAME: LEIGH FRYE [address] [address] PHYS: [place] [address] : 1980 AGE: 38 SEX: F LOC: Z.SI09 A PHONE #: [phone] EXAM DATE: 08/31/2018 STATUS: ADM IN FAX #: [phone] RAD #: D/C DT PAGE 1 Signed Report Patient Name: LEIGH FRYE Unit No: [id number] EXAMS: CPT CODE: [id number] CT HEAD/BRAIN W/O CONT 02074 (Continued) Orig Print D/T: S: 08/31/2018 (0820) [facility] LE[place] FRYE [address] [address] PHYS: [place] [address] : 1980 AGE: 38 SEX: F LOC: Z.SI09 A PHONE #: [phone] EXAM DATE: 08/31/2018 STATUS: ADM IN FAX #: [phone] RAD #: D/C DT PAGE 2 Signed ReportUA SPECIFIC [id number] 08:12:00 Test Item Value Reference Range Interpretation Comments UA SPECIFIC GRAVITY (test code = SGU) 1.010 1.003-1.030 N UR SODIUM [id number] 08:12:00 Test Item Value Reference Range Interpretation Comments UR SODIUM RANDOM (test code = BRIGIDO) MMOL/L 27-287 [id number] 07:31:00 Test Item Value Reference Range Interpretation Comments THYROGLOBULIN (test code = 6.3 N ORMAL : 1.5-38.5 THYROGL) ng/ml METANEPHRINES, FREE, [id number] 07:24:00 Test Item Value Reference Range Interpretation Comments METANEPHRINES 12 pg/mL 0-62 This test was developed and its , FREE, performance PLASMA (test characteristics determined by code = METAF) [facility]. It begum s not been cleared orapproved by [facility] Food and Drug Administration. Concentrations of Normetanephrine between 146 and 487pg/mL, and M etanephrine between 63 and 255 pg/mL areconsidered i ndeterminate. Follow-up bioch emical testing isrecommended w hen patient levels fall wit hin thisindetermina te range. These tests include r epeat testing ofplasma/urinar y fractionated metanephrines a nd plasmacatechola mines.Performed At: [facility] [address] [id number] ra Kristen VELASCO Ph:[phone] [id number] 03:54:00 Test Item Value Reference Range Interpretation Comments CORTISOL (test code = CORTR) 78.90 ug/dL 1.7-22.7 H [id number] 01:35:00 Test Item Value Reference Range Interpretation Comments SODIUM (test code = NA) 142 MMOL/L 137-145 N UA SPECIFIC [id number] 00:52:00 Test Item Value Reference Range Interpretation Comments UA SPECIFIC GRAVITY (test code = SGU) 1.005 1.003-1.030 N UA SPECIFIC [id number] 17:15:00 Test Item Value Reference Range Interpretation Comments UA SPECIFIC GRAVITY (test code = SGU) 1.025 1.003-1.030 N [id number] 16:51:00 Test Item Value Reference Range Interpretation Comments CORTISOL (test code = CORTR) 46.60 ug/dL 1.7-22.7 H UNABLE TO DRAW BLOOD, REASON: CBNNOTIFIED PATIENT CARE STAFF: DAVID GODWIN 08/30/18 AT 1534 BY Christian Montelongo METABOLIC [id number] 16:06:00 Test Item Value Reference Range Interpretation [...] 08/30/18 AT 1533 BY Tim Montelongo W/AUTO [id number] 15:57:00 Test Item Value Reference Range Interpretation [...] AT 1534 BY Demetrius Montelongo ARTERIAL BLOOD [id number] 12:31:00 Test Item Value Reference Range Interpretation Comments POC ARTERIAL BLOOD GAS 7.396 7.35-7.45 N Previ ously reported PH (test code = result: 7.41 1 Edited POCPHA) by: DOMINIC o n 08/30/18: 9 1230: POC ABG PH previously repo rted as: 7.411 POC ARTERIAL BLOOD GAS 40.9 mmHg 35.0-45.0 N Previ ously reported PCO2 (test code = result: 39 .2 OUZIUN3Y) mmHgEdited by: DOMINIC on 08/30/18: 9 1230: POCPCO2 A previously repo rted as: 39.2 mmHg POC ARTERIAL BLOOD GAS 87 75.0-100.0 N Previ ously reported PO2 (test code = result: 82 Edited ECXXH6I) by: DOMINIC o n 08/30/18: 9 1230: POC PO2 A previously repo rted as: 82 POC HCO3 ARTERIAL 25.1 MMOL/L 20.0-26.0 N (test code = LYZPWR2U) POC BASE EXCESS (test 0.0 MMOL/L -3.0-3.0 [...] MMOL/L 0.4-2.0 N code = POCLAC) HCG [id number] 11:02:00 Test Item Value Reference Range Interpretation [...] etested after 48 hours toconfirm . T3,T4 [id number] 07:15:00 Test Item Value Reference Range Interpretation Comments T3 UPTAKE (test code = T3UP) 34.6 % UP 23.5-40.5 N T4 (THYROXINE) (test code = T4) 7.16 UG/DL 5.53-11.0 N T7 (FREE THYROXINE INDEX) (test 2.5 1.2-4.3 N code = T7) ADRENOCORTICOTROPIC [id number] 07:15:00 Test Item Value Reference Range Interpretation Comments ADRENOCORTICOTROPIC HORMONE 35.5 pg/mL 7.2-63.3 ACTH reference (test code = ACTH) interval for samples collected between 7 and10 AM. FOLLICLE STIM LEUTINIZING [id number] 07:15:00 Test Item Value Reference Range Interpretation Comments LUTEINIZING HORMONE 6.60 mIU/mL () Adult F emale: (test code = LH) Follicular phase 2.4 - 12.6 Ovulation phase 14.0 - 95.6 Lut eal phase 1.0 - 11. 4 Postmenopausal 7.7 - 58.5LH INTERPRE TIVE DATA: MALES: 1. 5-9.3 NORMAL MENSTRUA TING FEMALES: FOLLI CULAR PHASE: 1.9-12.5 MID-CYCLE PHASE : 8.7-76.3 LUTEAL [...] At: [facility] (HUMAN) (test code = [facility] [id number] [facility]) [place], [place] [id number] yovany Valles MD Ph:[phone] rformed At: [facility] [id number] ra Kristen VELASCO Ph:[phone] INSULIN-LIKE GROWTH FACTOR [id number] 07:15:00 Test Item Value Reference Range Interpretation Comments INSULIN-LIKE GROWTH FACTOR I (test 147 ng/mL 69-227 code = INSLKGF1) [id number] 07:15:00 Test Item Value Reference Range Interpretation Comments PROLACTIN (test code = 42.1 ng/mL 4.8-23.3 H Perfo rmed At: PROLAC) [facility] [address] [id number] Kyle L MD Ph:[phone] PROTHROMBIN [id number] 07:06:00 Test Item Value Reference Range Interpretation [...] myocar dial infarction. 2.0 - 3.0 3. Keg Filler al prosthesis hear t valves, recurre nt systemic emboli sm. 3.0 - 4.5 PTT [id number] 07:06:00 Test Item Value Reference Range Interpretation Comments PTT ACTIVATED (test code = APTT) 28.7 SECONDS 22.0-33.0 N - CT HD/BR W W/O [id number] 18:59:00 Patient Name: LEIGH FRYE Unit No: [id number] EXAMS: CPT CODE: [id number] CT HD/BR W W/O CONT 87875 CLINICAL INFORMATION: Evaluate pituitary tumor. Dictation Location: R 16 COMPARISON: No prior study available for review at this time.. Technique: Pre and postcontrast CT head was done in theusual fashion. Sagittal and coronal reconstructions. Appropriate dose [...] enhancement, hemorrhage, or abnormal extra-axial fluid collection. Th ere is mild sinusitis. An old inferomedial blowout fracture of the right orbit is noted with partialsubluxation of the inferior rectus muscle. IMPRESSION: 1. Pituitary macroadenoma. Further evaluationwith MRI may be helpful. 2. Old right orbital blowout fracture with subluxation of the inferior rectus muscle. at 1859 Reported and signed by: Pranav Chaudhari M.D. CC: Michael Martínez NP Technologist: Bethany Mane, RT(R)(CT); Kade HernándezDI: DLP: Trnscrpt: 08/29/2018 (1858) [facility]: LEIGH FRYE [id number] [address] PHYS: [place] [address] : 1980 AGE: 38 SEX: F LOC: Z.[facility] A PHONE #: [phone] EXAM DATE: 08/29/2018 STATUS: ADM IN FAX #: [phone] RAD #: D/C DT PAGE 1 Signed Report Patient Name: LEIGH FRYE Unit No: [id number] EXAMS: CPT CODE:[id number] CT HD/BR W W/O CONT 79407 (Continued) Orig Print D/T: S: 08/29/2018 (1902) [facility] NAME: LEIGH FRYE [id number] PHYS: [place] [address] : 1980 AGE: 38 SEX: F LOC: Z.535 A PHONE #: [phone] EXAM DATE: 08/29/2018 STATUS: ADM IN FAX #: [phone] RAD #: D/C DT PAGE 2 Signed ReportBASIC METABOLIC [id number] 15:55:00 Test Item Value Reference Range Interpretation [...] = 9.7 MG/DL 8.4-10.2 N CA) HCG [id number] 15:55:00 Test Item Value Reference Range Interpretation Comments HCG SERUM (test < 2 IU/L ~~~~~~~~~~~~ ~~~~~~~~~~~~~~~~ code = HCG) ~~~~~~~~~~~~~~~ ~~~~~~~~~~~~~ ~~~~INTERPRETAT ION OF BHCG QN PERFORMED AT [facility] 0.2-1 W EEKS AFTER CONCEPTION 5-50 [...] Units per milliliter AND LESS THAN 25 og-Exchange Administrator ational Units per milliliterS HOULD HAVE ADDITIONAL BLOO D SAMPLE DRAWN 48 HOURSL ATER AND REPEATED.~~~~~~ ~~~~~~~~~~~~~ ~~~~~~~~~~~~~~~ ~~~~~~~~~~~~~ ~~~~~~~~~~~~~ PROTHROMBIN [id number] 15:45:00 Test Item Value Reference Range Interpretation Comments PROTHROMBIN TIME 10.2 SECONDS 9.6-11.6 N PATIENT (test code = PTP) INTERNATIONAL NORMAL 1.0 0.8-1.1 N The INR is to be RATIO (test code = used only for INR) monitoring oral anticoagulantth erap y. INDICATION INR VALUE ---- ---- ---- -------1. Prophylaxis, de ep venous thrombos is, including high risk surgery. 2.0 - 3.0 2. Prophylaxis, deep venous thrombosis, hip surgery, treatm ent for deep venous thrombosis or pulmonary prevention of systemic emboli sm in patients wit h valvular heart disease, atrial fibrillation, tissue heart va lve, or acute myocar dial infarction. 2.0 - 3.0 3. Keg Filler al prosthesis hear t valves, recurre nt systemic emboli sm. 3.0 - 4.5 BASIC METABOLIC [id number] 15:39:00 Test Item Value Reference Range Interpretation [...] = 9.7 MG/DL 8.4-10.2 N CA) HCG [id number] 15:39:00 Test Item Value Reference Range Interpretation Comments HCG SERUM (test code = HCG) IU/L CBC W/AUTO [id number] 15:29:00 Test Item Value Reference Range Interpretation [...] 0.00 K/mm3 0.0-0.1 N NRBC#) LUPUS (LE) [id number] 07:42:00 Test Item Value Reference Range Interpretation Comments LUPUS (SLE) PANEL AI 0.0-0.9 Systemic L upus Profile A RESULTS (test code = SURVEY METHODOLOGIST Ant ibodies <0.2 AI 0.0 SLEPANELR) - 0.9 Traylor Ant ibodies <0.2 AI 0.0 - 0.9 R A Latex Turbid. <10.0 I U/mL 0.0 - 13.9 Antichroma tin Antibodies <0.2 AI 0.0 - 0.9 Sjogren's A nti-SS-A <0.2 AI 0.0 - 0 .9 Sjogren's Anti-SS-B <0.2 AI 0.0 - 0.9 Anti-DNA (DS) A b Qn <1 IU/mL 0 - 9 Neg ative <5 Equivocal 5 - 9 Positive >9 T3,T4 [id number] 07:23:00 Test Item Value Reference Range Interpretation Comments T3 UPTAKE (test code = T3UP) 34.6 % UP 23.5-40.5 N T4 (THYROXINE) (test code = T4) 7.16 UG/DL 5.53-11.0 N T7 (FREE THYROXINE INDEX) (test 2.5 1.2-4.3 N code = T7) ADRENOCORTICOTROPIC [id number] 07:23:00 Test Item Value Reference Range Interpretation Comments ADRENOCORTICOTROPIC HORMONE (test code pg/ml 7.2-63.3 = ACTH) FOLLICLE STIM LEUTINIZING [id number] 07:23:00 Test Item Value Reference Range Interpretation [...] = ng/ml <=13.0 GH) INSULIN-LIKE GROWTH FACTOR [id number] 07:23:00 Test Item Value Reference Range Interpretation Comments INSULIN-LIKE GROWTH FACTOR I (test ng/ml 81-225 code = INSLKGF1) [id number] 07:23:00 Test Item Value Reference Range Interpretation Comments PROLACTIN (test code = 42.1 ng/mL 4.8-23.3 H Perfo rmed At: HD PROLAC) [facility] [address] [id number] Etienne Valles MD Ph:[phone] [id number] 21:15:00 Test Item Value Reference Range Interpretation Comments AMYLASE (test code = VERO) 90 UNITS/L 30-110 N - US HEAD AND [id number] 14:27:00 Patient Name: LEIGH FRYE Unit No: [id number] EXAMS: CPT CODE: [id number] US HEAD AND NECK 24390 Exam:Parathyroid ultrasound. Location: Clinical Indication:38-year-old with elevated parathormone. Comparison:None Findings:Ultrasound of the neck was performed. A parathyroid mass or lymphadenopathy is not identified. The thyroid itself was not completely evaluated. However, the high scaler identifies a 2.7 cm well-circumscribed ovoid mass of the right thyroid. Impression: 1. Parathyroidmass, lymphadenopathy is not identified. 2. 2.7 cm smoothly marginated mass of the right thyroid gland. The thyroid is not completely evaluated on this study. Follow-up with dedicated thyroid evaluation is recommended. at 8925 Reported and signed by: Ko Valles M.D. CC: Technologist: Christina Frost RDMS(OB)(AB) Transcrpt Date/Tm/Trnsp: 08/28/2018 (7599) [id number] Orig Print D/T: S: 08/28/2018 (0470) [facility] NAME: LAN FRYE [id number] PHYS: [place] [address] : 1980 AGE: 38 SEX: F LOC: [facility] PHONE #: [phone] EXAM DATE: 08/28/2018 STATUS: ADM IN FAX #: [phone] RADIOLOGY NO: PAGE 1 Signed ReportVITAMIN [id number] 09:57:00 Test Item Value Reference Range Interpretation Comments VITAMIN B12 (test code = VITB12) 266 pg/mL 239-931 N FOLIC ACID BY [id number] 09:57:00 Test Item Value Reference Range Interpretation [...] (test code = FESAT) % 12-57 HGB [id number] 06:09:00 Test Item Value Reference Range Interpretation Comments HEMOGLOBIN (test code = HGB) 8.7 G/DL 11.2-14.9 L HEMATOCRIT (test code = HCT) 29.1 % 33.2-43.5 L PARATHYROID HORMONE [id number] 20:27:00 Test Item Value Reference Range Interpretation Comments PARATHYROID HORMONE INTACT (test 106.9 pg/mL 7.5-53.5 H code = PARAI) PLATELET [id number] 18:01:00 Test Item Value Reference Range Interpretation Comments PLATELET COUNT (test code = PLT) 305 K/MM3 129-368 N POC ARTERIAL BLOOD [id number] 15:07:00 Test Item Value Reference Range Interpretation Comments POC ARTERIAL BLOOD GAS PH (test 7.411 7.35-7.45 N code = POCPHA) POC ARTERIAL BLOOD GAS PCO2 (test 39.2 mmHg 35.0-45.0 N code = OEEFBA7I) POC ARTERIAL BLOOD GAS PO2 (test 82 75.0-100.0 N code = LMOGN3X) POC HCO3 ARTERIAL (test code = 25.1 MMOL/L 20.0-26.0 N FLWBBN1X) POC BASE EXCESS (test code = 0.0 [...] = 0.87 MMOL/L 0.4-2.0 N POCLAC) CORTISOL [id number] 10:38:00 Test Item Value Reference Range Interpretation Comments CORTISOL AM (test code = CORTAM) 4.55 ug/dL 4.46-22.7 N T4 [id number] 02:18:00 Test Item Value Reference Range Interpretation Comments T4 FREE (test code = T4F) 0.9 NG/DL 0.78-2.19 N THYROID STIMULATING [id number] 01:20:00 Test Item Value Reference Range Interpretation Comments THYROID STIMULATING 0.633 MIU/L 0.465-4.68 N Please b e aware that HORMONE (test code = bias re sults for TSH TSH) may occur forpa tient who are taking Biotin suppleme nts. T3,T4 [id number] 01:06:00 Test Item Value Reference Range Interpretation Comments T3 UPTAKE (test code = T3UP) 34.6 % UP 23.5-40.5 N T4 (THYROXINE) (test code = T4) 7.16 UG/DL 5.53-11.0 N T7 (FREE THYROXINE INDEX) (test 2.5 1.2-4.3 N code = T7) ADRENOCORTICOTROPIC [id number] 01:06:00 Test Item Value Reference Range Interpretation Comments ADRENOCORTICOTROPIC HORMONE (test code pg/ml 7.2-63.3 = ACTH) FOLLICLE STIM LEUTINIZING [id number] 01:06:00 Test Item Value Reference Range Interpretation Comments LUTEINIZING HORMONE (test code = See note LH) FOLLICLE STIMULATING HORMONE (test See Note code = FSH) GROWTH HORMONE (HUMAN)2018-08-26 01:06:00 Test Item Value Reference Range Interpretation Comments GROWTH HORMONE (HUMAN) (test code = ng/ml <=13.0 GH) INSULIN-LIKE GROWTH FACTOR [id number] 01:06:00 Test Item Value Reference Range Interpretation Comments INSULIN-LIKE GROWTH FACTOR I (test ng/ml 81-225 code = INSLKGF1) [id number] 01:06:00 Test Item Value Reference Range Interpretation Comments PROLACTIN (test code = PROLAC) NG/ML 4.8-23.3 CARDIAC [id number] 14:05:00 Test Item Value Reference Range Interpretation Comments Troponin-I (test code no gt See_Comment [Auto mated message] The = Troponin-I) system which g enerated this result transmit kenroy reference range : <=0.40. The reference r alee was not used to interpr et this result as elton l/abnormal. [facility] [employer] [id number] 14:05:00 Test Item Value Reference Range Interpretation Comments Troponin-I (test code no gt See_Comment [Auto mated message] The = Troponin-I) system which g enerated this result transmit kenroy reference range : <=0.40. The reference r alee was not used to interpr et this result as elton l/abnormal. [facility] [employer] [id number] 14:05:00 Test Item Value Reference Range Interpretation Comments Troponin-I (test code no gt See_Comment [Auto mated message] The = Troponin-I) system which g enerated this result transmit kenroy reference range : <=0.40. The reference r alee was not used to interpr et this result as elton l/abnormal. [facility] [employer] [id number] 14:05:00 Test Item Value Reference Range Interpretation Comments Troponin-I (test code no gt See_Comment [Auto mated message] The = Troponin-I) system which g enerated this result transmit kenroy reference range : <=0.40. The reference r alee was not used to interpr et this result as elton l/abnormal. [facility]ClassWalletSA[facility] [id number] 14:05:00 Test Item Value Reference Range Interpretation Comments Troponin-I (test code no gt See_Comment [Auto mated message] The = Troponin-I) system which g enerated this result transmit kenroy reference range : <=0.40. The reference r alee was not used to interpr et this result as elton l/abnormal. [facility]Class[facility]SA[facility] [id number] 14:05:00 Test Item Value Reference Range Interpretation Comments Troponin-I (test code no gt See_Comment [Auto mated message] The = Troponin-I) system which g enerated this result transmit kenroy reference range : <=0.40. The reference r alee was not used to interpr et this result as elton l/abnormal. [facility] [id number] 14:05:00 Test Item Value Reference Range Interpretation Comments Troponin-I (test code no gt See_Comment [Auto mated message] The = Troponin-I) system which g enerated this result transmit kenroy reference range : <=0.40. The reference r alee was not used to interpr et this result as elton l/abnormal. [facility] [id number] 14:05:00 Test Item Value Reference Range Interpretation Comments Troponin-I (test code no gt See_Comment [Auto mated message] The = Troponin-I) system which g enerated this result transmit kenroy reference range : <=0.40. The reference r alee was not used to interpr et this result as elton l/abnormal. [facility] Hos[id number] 09:22:00 Test Item Value Reference Range Interpretation Comments Prolactin Lvl (test code = Prolactin 33.0 Lvl) [facility] H[id number] 09:22:00 Test Item Value Reference Range Interpretation Comments IGF I (test code = IGF I) 140 69-227 [facility] HospitalOqrfguhMUSWSHHKPLAWI7139-15-55 09:22:00 Test Item Value Reference Range Interpretation Comments Prolactin Lvl (test code = Prolactin 33.0 Lvl) [id number] 09:22:00 Test Item Value Reference Range Interpretation Comments IGF I (test code = IGF I) 140 69-227 [place] [id number] 09:22:00 Test Item Value Reference Range Interpretation Comments Prolactin Lvl (test code = Prolactin 33.0 Lvl) [facility] GreenvilleBmahvtmIFFNWSNAPF1358-04-59 09:22:00 Test Item Value Reference Range Interpretation Comments IGF I (test code = IGF I) 140 69-227 [place] [address]2019-06-05 09:22:00 Test Item Value Reference Range Interpretation Comments Prolactin Lvl (test code = Prolactin 33.0 Lvl) [facility] GreenvilleDcaysbfCTVTHDGIFM5484-21-88 09:22:00 Test Item Value Reference Range Interpretation Comments IGF I (test code = IGF I) 140 69 [place] [address]2019-06-05 09:22:00 Test Item Value Reference Range Interpretation Comments Prolactin Lvl (test code = Prolactin 33.0 Lvl) [facility] GreenvillePeokoxoLJQQEZYWUT7535-31-23 09:22:00 Test Item Value Reference Range Interpretation Comments IGF I (test code = IGF I) 140 69-227 [place] [address]-06-05 09:22:00 Test Item Value Reference Range Interpretation Comments Prolactin Lvl (test code = Prolactin 33.0 Lvl) [facility] GreenvilleBrueipqGQCAXGJDAV1561-10-85 09:22:00 Test Item Value Reference Range Interpretation Comments IGF I (test code = IGF I) 140 69- [place] [address]-06-05 09:22:00 Test Item Value Reference Range Interpretation Comments Prolactin Lvl (test code = Prolactin 33.0 Lvl) [facility] GreenvilleUurzcsjHXRRWBJKUE9281-19-87 09:22:00 Test Item Value Reference Range Interpretation Comments IGF I (test code = IGF I) 140 69-227 [place] 814139-06-05 09:22:00 Test Item Value Reference Range Interpretation Comments Prolactin Lvl (test code = Prolactin 33.0 Lvl) [facility] GreenvilleFjicudzTOSRBZZECQ1614-13-77 09:22:00 Test Item Value Reference Range Interpretation Comments IGF I (test code = IGF I) 140 69- [facility]neyEbggaumPQYAFHWFXPPJQ1150-08-49 22:42:00 Test Item Value Reference Range Interpretation Comments FSH (test code = FSH) 5.3 [facility] OwzrewiZXJFKGOOOBTTA8539-92-32 22:42:00 Test Item Value Reference Range Interpretation Comments LH (test code = LH) 1.93 [facility] HospitalQ Medical CentersIAL [id number] 22:42:00 Test Item Value Reference Range Interpretation Comments ACTH Lvl (test code = 41 See_Comment [Auto mated message] The ACTH Lvl) system which ge nerated this result transmit kenroy reference range : <=46. The reference range was not used to interpr et this result as elton l/abnormal. [facility] RohpdfqXLLIOUQQSZVFF3749-21-61 22:42:00 Test Item Value Reference Range Interpretation Comments FSH (test code = FSH) 5.3 [facility] NvnhglxQZZCWTQXEQOLC8982-35-90 22:42:00 Test Item Value Reference Range Interpretation Comments LH (test code = LH) 1.93 [facility] HospitalQ Medical CentersREGENCY HOS[facility]ITAL COMPANY KJJTLEIGS1800-27-04 22:42:00 Test Item Value Reference Range Interpretation Comments ACTH Lvl (test code = 41 See_Comment [Auto mated message] The ACTH Lvl) system which ge nerated this result transmit kenroy reference range : <=46. The reference range was not used to interpr et this result as elton l/abnormal. [facility] CziwwhiXIJLQSUJBLFTX7653-73-71 22:42:00 Test Item Value Reference Range Interpretation Comments FSH (test code = FSH) 5.3 [facility] CenterDiojazeQZQABCPSOVMSV1931-84-98 22:42:00 Test Item Value Reference Range Interpretation Comments LH (test code = LH) 1.93 [facility] CenterMintigoREGENCY HOSPITAL COMPANY TPQSDRBIG9692-98-18 22:42:00 Test Item Value Reference Range Interpretation Comments ACTH Lvl (test code = 41 See_Comment [Auto mated message] The ACTH Lvl) system which ge nerated this result transmit kenroy reference range : <=46. The reference range was not used to interpr et this result as elton l/abnormal. [facility] IjpnyziWVQTDJYYLLSEH6289-65-46 22:42:00 Test Item Value Reference Range Interpretation Comments FSH (test code = FSH) 5.3 [facility] CenterCiipdexMGDSCRTCVCRXW1479-75-03 22:42:00 Test Item Value Reference Range Interpretation Comments LH (test code = LH) 1.93 [facility] PUEGXGCAZ9372-09-25 22:42:00 Test Item Value Reference Range Interpretation Comments ACTH Lvl (test code = 41 See_Comment [Auto mated message] The ACTH Lvl) system which ge nerated this result transmit kenroy reference range : <=46. The reference range was not used to interpr et this result as elton l/abnormal. [facility] RpknxuoNLOGDSIBLMHJA8506-88-25 22:42:00 Test Item Value Reference Range Interpretation Comments FSH (test code = FSH) 5.3 [facility] TbpagwrYYGXRTZCXZCCH9601-65-05 22:42:00 Test Item Value Reference Range Interpretation Comments LH (test code = LH) 1.93 [facility]SPE[facility] JYNQXUGGT9942-01-83 22:42:00 Test Item Value Reference Range Interpretation Comments ACTH Lvl (test code = 41 See_Comment [Auto mated message] The ACTH Lvl) system which ge nerated this result transmit kenroy reference range : <=46. The reference range was not used to interpr et this result as elton l/abnormal. [facility] CothokvTSQNSZZNBCAJY6529-41-53 22:42:00 Test Item Value Reference Range Interpretation Comments FSH (test code = FSH) 5.3 [facility] WznnfgbNPAXRMUFBYZII0261-78-27 22:42:00 Test Item Value Reference Range Interpretation Comments LH (test code = LH) 1.93 [facility] HermannQ Medical CentersIAL KQDIQKHSN3482-77-95 22:42:00 Test Item Value Reference Range Interpretation Comments ACTH Lvl (test code = 41 See_Comment [Auto mated message] The ACTH Lvl) system which ge nerated this result transmit kenroy reference range : <=46. The reference range was not used to interpr et this result as elton l/abnormal. [facility] PzcbmstWHSANAXYVOEVW0203-33-04 22:42:00 Test Item Value Reference Range Interpretation Comments FSH (test code = FSH) 5.3 [facility] QerhmtjPHQAKKBZJHAJQ0888-84-58 22:42:00 Test Item Value Reference Range Interpretation Comments LH (test code = LH) 1.93 [facility]annQ Medical CentersIAL LLKAJOYRN7523-48-78 22:42:00 Test Item Value Reference Range Interpretation Comments ACTH Lvl (test code = 41 See_Comment [Auto mated message] The ACTH Lvl) system which ge nerated this result transmit kenroy reference range : <=46. The reference range was not used to interpr et this result as elton l/abnormal. [facility] McKinneyTcmtcrtCDKNAWJOEXDPN7134-62-51 22:42:00 Test Item Value Reference Range Interpretation Comments FSH (test code = FSH) 5.3 [facility] HospitalJbkdpipVZPVSBDMISALA7135-16-65 22:42:00 Test Item Value Reference Range Interpretation Comments LH (test code = LH) 1.93 [facility]IAL [id number] 22:42:00 Test Item Value Reference Range Interpretation Comments ACTH Lvl (test code = 41 See_Comment [Auto mated message] The ACTH Lvl) system which ge nerated this result transmit kenroy reference range : <=46. The reference range was not used to interpr et this result as elton l/abnormal. [facility] CenterBlitz [facility] [employer] [id number] 10:34:00 Test Item Value Reference Range Interpretation Comments eGFR (test code = eGFR) 104 [facility] CenterBl[facility] [id number] 10:34:00 Test Item Value Reference Range Interpretation Comments Calcium Lvl (test code = Calcium Lvl) 8.7 8.5-10.5 [facility] [id number] 10:34:00 Test Item Value Reference Range Interpretation Comments Sodium Lvl (test code = Sodium Lvl) 137 135-145 [facility] [employer] [facility] [id number] 10:34:00 Test Item Value Reference Range Interpretation Comments Chloride Lvl (test code = Chloride Lvl) 104 95-109 [facility] [employer] [facility] NFWWG9806-10-51 10:34:00 Test Item Value Reference Range Interpretation Comments Potassium Lvl (test code = Potassium 4.1 3.5-5.1 Lvl) [facility] Center[facility] [employer] [facility] [id number] 10:34:00 Test Item Value Reference Range Interpretation Comments AGAP (test code = AGAP) 11.1 10.0-20.0 [facility] Center[facility] [employer] [facility] [id number] 10:34:00 Test Item Value Reference Range Interpretation Comments CO2 (test code = CO2) 26 24-32 [facility] Center[facility] [employer] [facility] [id number] 10:34:00 Test Item Value Reference Range Interpretation Comments BUN (test code = BUN) 15 7-22 [facility]2019-06-04 10:34:00 Test Item Value Reference Range Interpretation Comments Creatinine Lvl (test code = Creatinine 0.73 0.50-1.40 Lvl) [facility]2019-06-04 10:34:00 Test Item Value Reference Range Interpretation Comments Glucose Lvl (test code = Glucose Lvl) 86 70-99 [facility]VtguvpiOIEVVTNENSYPS7900-43-30 10:34:00 Test Item Value Reference Range Interpretation Comments Prolactin Lvl (test code = Prolactin 31.4 Lvl) [facility] CenterWruheecHYZEGYAQMP4856-49-74 10:34:00 Test Item Value Reference Range Interpretation Comments MPV (test code = MPV) 7.3 7.4-10.4 [facility] CenterUdkhptiUAUDENJIKN2755-69-42 10:34:00 Test Item Value Reference Range Interpretation Comments MCV (test code = MCV) 69.5 80.0-98.0 [facility] CenterHsrjajwAEVZFLCZTA3546-38-87 10:34:00 Test Item Value Reference Range Interpretation Comments Hct (test code = Hct) 27.8 36.0-48.0 [facility] CenterLuhjxebUEFBVUQVTO9398-56-20 10:34:00 Test Item Value Reference Range Interpretation Comments MCHC (test code = MCHC) 31.5 32.0-36.0 [facility] CenterLmwuiznGMKCZIYAET8502-34-22 10:34:00 Test Item Value Reference Range Interpretation Comments MCH (test code = MCH) 21.9 pg 27.0-31.0 [facility] CenterNpyzlqkDUIYYPRHRW2316-01-70 10:34:00 Test Item Value Reference Range Interpretation Comments Platelet (test code = Platelet) 267 133-450 [facility] CenterUwicomyGAZPKZNUTR0431-74-53 10:34:00 Test Item Value Reference Range Interpretation Comments RDW (test code = RDW) 18.2 11.5-14.5 [facility] CenterUpoceadRFRTXDGOYE2887-91-70 10:34:00 Test Item Value Reference Range Interpretation Comments WBC (test code = WBC) 5.3 3.7-10.4 [facility] CenterBilgkndWWMHLZNQGL6412-27-14 10:34:00 Test Item Value Reference Range Interpretation Comments RBC (test code = RBC) 4.00 4.20-5.40 [facility] CenterWnkxcfiCCUUBMWQMO3649-52-13 10:34:00 Test Item Value Reference Range Interpretation Comments Hgb (test code = Hgb) 8.8 12.0-16.0 [facility]DsrhplvRIJFRSLMNN4616-91-51 10:34:00 Test Item Value Reference Range Interpretation Comments Segs (test code = Segs) 51.8 45.0-75.0 [facility] CenterTgtzobfVKJPIZOUOQ4475-79-41 10:34:00 Test Item Value Reference Range Interpretation Comments Monocytes (test code = Monocytes) 7.1 2.0-12.0 [facility] CenterTgcosvtHYHFKEEMYX5455-99-79 10:34:00 Test Item Value Reference Range Interpretation Comments Lymphocytes (test code = Lymphocytes) 37.6 20.0-40.0 [facility] CenterDnnqnrwMIXMSRTGNT3920-89-76 10:34:00 Test Item Value Reference Range Interpretation Comments Eosinophils (test code = 3.0 See_Comment [A utomated message] The Eosinophils) system which ge nerated this result tra nsmitted reference range : <=4.0. The reference r alee was not used to int erpret this result as normal/abnormal . [facility] CenterZxanbugSDWNIGSJNJ2273-45-07 10:34:00 Test Item Value Reference Range Interpretation Comments Plt Morph (test code = Normal (08/23/18 5:34 AM) Plt Morph) [facility] CenterEwkqlphVVRLUOZZJO0750-96-55 10:34:00 Test Item Value Reference Range Interpretation Comments Neutrophils # (test code = Neutrophils 2.8 1.5-8.1 #) [facility] CenterCiycxiuQUMZMOQZFB5009-14-13 10:34:00 Test Item Value Reference Range Interpretation Comments Monocytes # (test code 0.4 See_Comment [Aut omated message] The = Monocytes #) system which generated this result tra nsmitted reference range : <=0.8. The reference r alee was not used to int erpret this result as normal/abnormal . [facility] CenterPmfnwosGVQCZTMYAT0558-54-36 10:34:00 Test Item Value Reference Range Interpretation Comments Lymphocytes # (test code = Lymphocytes 2.0 1.0-5.5 #) [facility] CenterWjyigqiXQSKTXVWMG1908-90-93 10:34:00 Test Item Value Reference Range Interpretation Comments Eosinophils # (test code 0.2 See_Comment [A utomated message] The = Eosinophils #) system whic h generated this result tra nsmitted reference range : <=0.5. The reference r alee was not used to int erpret this result as normal/abnormal . [facility]NyulxjdHAIMTWJXUF1663-74-93 10:34:00 Test Item Value Reference Range Interpretation Comments Basophils (test code = 0.5 See_Comment [Aut omated message] The Basophils) system which ge nerated this result tra nsmitted reference range : <=1.0. The reference r alee was not used to int erpret this result as normal/abnormal . [facility] HospitalWcwycuwNPYBPEXVSY3086-74-85 10:34:00 Test Item Value Reference Range Interpretation Comments Hypochrom (test code = 1+ (08/23/18 5:34 AM) Hypochrom) [facility] HospitalEpqabhpBHDTWTPQUA6568-10-22 10:34:00 Test Item Value Reference Range Interpretation Comments Microcyte (test code = 2+ *ABN*(08/23/18 5:34 Microcyte) AM) [facility]FkuvfhbKFAVXT0939-32-56 10:34:00 Test Item Value Reference Range Interpretation Comments VLDL (test code = VLDL) 28 1 [facility] HospitalNkqmljzKJYEMB5326-04-09 10:34:00 Test Item Value Reference Range Interpretation Comments LDL (Calculated) (test code = LDL 130 (Calculated)) [facility] HospitalCnixofgALAIYM6358-34-66 10:34:00 Test Item Value Reference Range Interpretation Comments Chol (test code = Chol) 196 [facility] HospitalTfwfwklUCKSFN3786-74-65 10:34:00 Test Item Value Reference Range Interpretation Comments Trig (test code = Trig) 141 [facility] CenterVuiytlxNIGYLE0398-83-20 10:34:00 Test Item Value Reference Range Interpretation Comments HDL (test code = HDL) 38 [facility] HospitalZefsiggLMQSHW8078-82-36 10:34:00 Test Item Value Reference Range Interpretation Comments CHD Risk (test code = CHD Risk) 5.16 1 3.90-5.80 [facility] EMMTSRXKM1709-77-71 10:34:00 Test Item Value Reference Range Interpretation Comments Hgb A1C (test code = Hgb A1C) 6.2 [facility]CHEM SMFOP6904-55-89 10:34:00 Test Item Value Reference Range Interpretation Comments eGFR (test code = eGFR) 104 [facility]AEGYB0460-54-03 10:34:00 Test Item Value Reference Range Interpretation Comments Calcium Lvl (test code = Calcium Lvl) 8.7 8.5-10.5 [facility]2019-06-04 10:34:00 Test Item Value Reference Range Interpretation Comments Sodium Lvl (test code = Sodium Lvl) 137 135-145 [facility]2019-06-04 10:34:00 Test Item Value Reference Range Interpretation Comments Chloride Lvl (test code = Chloride Lvl) 104 95-109 [facility]2019-06-04 10:34:00 Test Item Value Reference Range Interpretation Comments Potassium Lvl (test code = Potassium 4.1 3.5-5.1 Lvl) [facility]2019-06-04 10:34:00 Test Item Value Reference Range Interpretation Comments AGAP (test code = AGAP) 11.1 10.0-20.0 [facility]2019-06-04 10:34:00 Test Item Value Reference Range Interpretation Comments CO2 (test code = CO2) 26 24-32 [facility]2019-06-04 10:34:00 Test Item Value Reference Range Interpretation Comments BUN (test code = BUN) 15 7-22 [facility]2019-06-04 10:34:00 Test Item Value Reference Range Interpretation Comments Creatinine Lvl (test code = Creatinine 0.73 0.50-1.40 Lvl) [facility]2019-06-04 10:34:00 Test Item Value Reference Range Interpretation Comments Glucose Lvl (test code = Glucose Lvl) 86 70-99 [facility]OzwphppBNXDISPEHSETP6576-73-26 10:34:00 Test Item Value Reference Range Interpretation Comments Prolactin Lvl (test code = Prolactin 31.4 Lvl) [facility] CenterGoznqywALGMDSXNHL6735-92-58 10:34:00 Test Item Value Reference Range Interpretation Comments MPV (test code = MPV) 7.3 7.4-10.4 [facility] CenterWrxrhymAAIGKUVORG0493-47-83 10:34:00 Test Item Value Reference Range Interpretation Comments MCV (test code = MCV) 69.5 80.0-98.0 [facility] CenterXzssbfqUEEFDKEKSB7904-52-75 10:34:00 Test Item Value Reference Range Interpretation Comments Hct (test code = Hct) 27.8 36.0-48.0 [facility] CenterNjuvcoeUGABZRLLHZ1577-38-78 10:34:00 Test Item Value Reference Range Interpretation Comments MCHC (test code = MCHC) 31.5 32.0-36.0 [facility] CenterArfsonrBLMEULNYEH3181-94-55 10:34:00 Test Item Value Reference Range Interpretation Comments MCH (test code = MCH) 21.9 pg 27.0-31.0 [facility] CenterKrrynyeKWXJLOSALR3109-21-14 10:34:00 Test Item Value Reference Range Interpretation Comments Platelet (test code = Platelet) 267 133-450 [facility] CenterAzotfqhIHDSBUMWJI0784-73-41 10:34:00 Test Item Value Reference Range Interpretation Comments RDW (test code = RDW) 18.2 11.5-14.5 [facility] CenterJrpfgluXYZHNHVHHP4417-36-87 10:34:00 Test Item Value Reference Range Interpretation Comments WBC (test code = WBC) 5.3 3.7-10.4 [facility] CenterMpmwacwHXYFFUCSPJ1761-21-90 10:34:00 Test Item Value Reference Range Interpretation Comments RBC (test code = RBC) 4.00 4.20-5.40 [facility] CenterAtnupqbDOYTHFLWDQ8878-48-88 10:34:00 Test Item Value Reference Range Interpretation Comments Hgb (test code = Hgb) 8.8 12.0-16.0 [facility] CenterOtowtrhWPGCKRZZJF5799-89-87 10:34:00 Test Item Value Reference Range Interpretation Comments Segs (test code = Segs) 51.8 45.0-75.0 [facility] CenterJkakaxdMOAMSIKCXE2470-64-32 10:34:00 Test Item Value Reference Range Interpretation Comments Monocytes (test code = Monocytes) 7.1 2.0-12.0 [facility] CenterOmokvmvSEQJHZOYPE4256-22-43 10:34:00 Test Item Value Reference Range Interpretation Comments Lymphocytes (test code = Lymphocytes) 37.6 20.0-40.0 [facility] CenterMftqrlfGQEBTGAQXU9443-41-21 10:34:00 Test Item Value Reference Range Interpretation Comments Eosinophils (test code = 3.0 See_Comment [A utomated message] The Eosinophils) system which ge nerated this result tra nsmitted reference range : <=4.0. The reference r alee was not used to int erpret this result as normal/abnormal . [facility] CenterVjgcwufYPAELXAORO0407-23-57 10:34:00 Test Item Value Reference Range Interpretation Comments Plt Morph (test code = Normal (08/23/18 5:34 AM) Plt Morph) [facility] CenterKorikhwLEQPSFTHMK0912-06-91 10:34:00 Test Item Value Reference Range Interpretation Comments Neutrophils # (test code = Neutrophils 2.8 1.5-8.1 #) [facility] CenterWrzuxusBDILCTDGWU8342-11-10 10:34:00 Test Item Value Reference Range Interpretation Comments Monocytes # (test code 0.4 See_Comment [Aut omated message] The = Monocytes #) system which generated this result tra nsmitted reference range : <=0.8. The reference r alee was not used to int erpret this result as normal/abnormal . [facility] CenterHmcvybuEWKGKFBPPZ3226-56-35 10:34:00 Test Item Value Reference Range Interpretation Comments Lymphocytes # (test code = Lymphocytes 2.0 1.0-5.5 #) [facility] CenterTrmgadlLEPIQMWJRC2236-26-87 10:34:00 Test Item Value Reference Range Interpretation Comments Eosinophils # (test code 0.2 See_Comment [A utomated message] The = Eosinophils #) system whic h generated this result tra nsmitted reference range : <=0.5. The reference r alee was not used to int erpret this result as normal/abnormal . [facility] CenterZeysazpJANZWVIVYE7472-72-66 10:34:00 Test Item Value Reference Range Interpretation Comments Basophils (test code = 0.5 See_Comment [Aut omated message] The Basophils) system which ge nerated this result tra nsmitted reference range : <=1.0. The reference r alee was not used to int erpret this result as normal/abnormal . [facility] CenterOyhllzmMHSEHLTKVP3396-95-11 10:34:00 Test Item Value Reference Range Interpretation Comments Hypochrom (test code = 1+ (08/23/18 5:34 AM) Hypochrom) [facility] CenterDgleidvBAPYUNVUDC0167-87-92 10:34:00 Test Item Value Reference Range Interpretation Comments Microcyte (test code = 2+ *ABN*(08/23/18 5:34 Microcyte) AM) [facility]AwrpipuWVJLNQ9671-54-23 10:34:00 Test Item Value Reference Range Interpretation Comments VLDL (test code = VLDL) 28 1 [facility] SoutheastRtcnwavSMTFES6319-61-23 10:34:00 Test Item Value Reference Range Interpretation Comments LDL (Calculated) (test code = LDL 130 (Calculated)) [facility] HospitalTxgcompYUYQMK1760-05-49 10:34:00 Test Item Value Reference Range Interpretation Comments Chol (test code = Chol) 196 [facility] HospitalJiehpgfUTIAMJ2721-28-37 10:34:00 Test Item Value Reference Range Interpretation Comments Trig (test code = Trig) 141 [facility] HospitalXutghqxVJUUTE4498-94-64 10:34:00 Test Item Value Reference Range Interpretation Comments HDL (test code = HDL) 38 [facility] HospitalOnrefogCRTNXF0918-59-35 10:34:00 Test Item Value Reference Range Interpretation Comments CHD Risk (test code = CHD Risk) 5.16 1 3.90-5.80 [facility] ILMPOVTGG1878-61-52 10:34:00 Test Item Value Reference Range Interpretation Comments Hgb A1C (test code = Hgb A1C) 6.2 [facility] HospitalBuscoTurno IPNHK2548-94-60 10:34:00 Test Item Value Reference Range Interpretation Comments eGFR (test code = eGFR) 104 [facility] HospitalBuscoTurno LRZYL8628-04-90 10:34:00 Test Item Value Reference Range Interpretation Comments Calcium Lvl (test code = Calcium Lvl) 8.7 8.5-10.5 [facility]2019-06-04 10:34:00 Test Item Value Reference Range Interpretation Comments Sodium Lvl (test code = Sodium Lvl) 137 135-145 [facility] HospitalBuscoTurno AFMCF9871-90-13 10:34:00 Test Item Value Reference Range Interpretation Comments Chloride Lvl (test code = Chloride Lvl) 104 95-109 [facility] HospitalBuscoTurno IGBMF0345-44-37 10:34:00 Test Item Value Reference Range Interpretation Comments Potassium Lvl (test code = Potassium 4.1 3.5-5.1 Lvl) [facility]BuscoTurno ROYCF7812-05-69 10:34:00 Test Item Value Reference Range Interpretation Comments AGAP (test code = AGAP) 11.1 10.0-20.0 [facility]Busco[facility] EHXHC4409-81-33 10:34:00 Test Item Value Reference Range Interpretation Comments CO2 (test code = CO2) 26 24-32 [facility]Bus[facility] SQGOW8809-67-78 10:34:00 Test Item Value Reference Range Interpretation Comments BUN (test code = BUN) 15 7-22 [facility]2019-06-04 10:34:00 Test Item Value Reference Range Interpretation Comments Creatinine Lvl (test code = Creatinine 0.73 0.50-1.40 Lvl) [facility]2019-06-04 10:34:00 Test Item Value Reference Range Interpretation Comments Glucose Lvl (test code = Glucose Lvl) 86 70-99 [facility] HospitalTeglwngTTKWBUWQKHFZP5449-97-28 10:34:00 Test Item Value Reference Range Interpretation Comments Prolactin Lvl (test code = Prolactin 31.4 Lvl) [facility] CenterDgmifztLYPELCHATV7085-58-76 10:34:00 Test Item Value Reference Range Interpretation Comments MPV (test code = MPV) 7.3 7.4-10.4 [facility] CenterHhurrubGHFNBVVSDD3194-86-54 10:34:00 Test Item Value Reference Range Interpretation Comments MCV (test code = MCV) 69.5 80.0-98.0 [facility] CenterMvcachuPPZWFQDFOL5691-86-90 10:34:00 Test Item Value Reference Range Interpretation Comments Hct (test code = Hct) 27.8 36.0-48.0 [facility] CenterWlvbcskRMMRRTGGQU3828-02-44 10:34:00 Test Item Value Reference Range Interpretation Comments MCHC (test code = MCHC) 31.5 32.0-36.0 [facility] CenterVsfviebDHIRNXMLPC8565-75-65 10:34:00 Test Item Value Reference Range Interpretation Comments MCH (test code = MCH) 21.9 pg 27.0-31.0 [facility] CenterCyihhytBHBWQQGZTD2046-47-92 10:34:00 Test Item Value Reference Range Interpretation Comments Platelet (test code = Platelet) 267 133-450 [facility] CenterOtqcuxvRLWLWBYMZJ8540-56-75 10:34:00 Test Item Value Reference Range Interpretation Comments RDW (test code = RDW) 18.2 11.5-14.5 [facility] CenterEvikzqaINKFZIXNRP8101-73-04 10:34:00 Test Item Value Reference Range Interpretation Comments WBC (test code = WBC) 5.3 3.7-10.4 [facility] CenterUoogytrFRVADHXXEY5760-92-56 10:34:00 Test Item Value Reference Range Interpretation Comments RBC (test code = RBC) 4.00 4.20-5.40 [facility] CenterTgmtcdiSSUCHGDLYZ0643-97-53 10:34:00 Test Item Value Reference Range Interpretation Comments Hgb (test code = Hgb) 8.8 12.0-16.0 [facility] CenterLxbokwyCKJWQVCOEY0272-06-01 10:34:00 Test Item Value Reference Range Interpretation Comments Segs (test code = Segs) 51.8 45.0-75.0 [facility] CenterYlgoebjKIUSAFEPUE0266-61-23 10:34:00 Test Item Value Reference Range Interpretation Comments Monocytes (test code = Monocytes) 7.1 2.0-12.0 [facility] CenterAxwzejsUQOGUEEIDQ5919-82-56 10:34:00 Test Item Value Reference Range Interpretation Comments Lymphocytes (test code = Lymphocytes) 37.6 20.0-40.0 [facility] CenterDjagxbwILPKGNMLFV2199-60-62 10:34:00 Test Item Value Reference Range Interpretation Comments Eosinophils (test code = 3.0 See_Comment [A utomated message] The Eosinophils) system which ge nerated this result tra nsmitted reference range : <=4.0. The reference r alee was not used to int erpret this result as normal/abnormal . [facility] CenterUzfggvsWZUBZUQQDV0305-33-59 10:34:00 Test Item Value Reference Range Interpretation Comments Plt Morph (test code = Normal (08/23/18 5:34 AM) Plt Morph) [facility] CenterZbveykxONJEATBAQO4962-66-30 10:34:00 Test Item Value Reference Range Interpretation Comments Neutrophils # (test code = Neutrophils 2.8 1.5-8.1 #) [facility] CenterWoyvsxhKKUKVLNEEH4403-84-17 10:34:00 Test Item Value Reference Range Interpretation Comments Monocytes # (test code 0.4 See_Comment [Aut omated message] The = Monocytes #) system which generated this result tra nsmitted reference range : <=0.8. The reference r alee was not used to int erpret this result as normal/abnormal . [facility] CenterLkmmstnFRGYTVWKIY8512-90-80 10:34:00 Test Item Value Reference Range Interpretation Comments Lymphocytes # (test code = Lymphocytes 2.0 1.0-5.5 #) [facility] CenterEnwlpsnLBNDDAQGPM3457-28-24 10:34:00 Test Item Value Reference Range Interpretation Comments Eosinophils # (test code 0.2 See_Comment [A utomated message] The = Eosinophils #) system whic h generated this result tra nsmitted reference range : <=0.5. The reference r alee was not used to int erpret this result as normal/abnormal . [facility] HospitalTmpjqudSKTFCFBGTO7204-41-65 10:34:00 Test Item Value Reference Range Interpretation Comments Basophils (test code = 0.5 See_Comment [Aut omated message] The Basophils) system which ge nerated this result tra nsmitted reference range : <=1.0. The reference r alee was not used to int erpret this result as normal/abnormal . [facility] HospitalStcaaeaZPYDVFROBX9008-75-16 10:34:00 Test Item Value Reference Range Interpretation Comments Hypochrom (test code = 1+ (08/23/18 5:34 AM) Hypochrom) [facility] HospitalGuyrxgnXSBJOBBVZN2368-69-60 10:34:00 Test Item Value Reference Range Interpretation Comments Microcyte (test code = 2+ *ABN*(08/23/18 5:34 Microcyte) AM) [facility] HospitalKilwmmgMKPKXL7536-29-27 10:34:00 Test Item Value Reference Range Interpretation Comments VLDL (test code = VLDL) 28 1 [facility] HospitalWxmzmorKYUFEF1524-31-17 10:34:00 Test Item Value Reference Range Interpretation Comments LDL (Calculated) (test code = LDL 130 (Calculated)) [facility] HospitalFkapwmfPIHRHB2269-82-36 10:34:00 Test Item Value Reference Range Interpretation Comments Chol (test code = Chol) 196 [facility] CenterPlacrwbXQNQCB9876-49-70 10:34:00 Test Item Value Reference Range Interpretation Comments Trig (test code = Trig) 141 [facility] CenterTifimfbPESOFQ5243-13-38 10:34:00 Test Item Value Reference Range Interpretation Comments HDL (test code = HDL) 38 [facility] CenterTtxojrqDKUBLT9800-65-91 10:34:00 Test Item Value Reference Range Interpretation Comments CHD Risk (test code = CHD Risk) 5.16 1 3.90-5.80 [facility]IAL XOHXJFGEM1205-46-27 10:34:00 Test Item Value Reference Range Interpretation Comments Hgb A1C (test code = Hgb A1C) 6.2 [facility]CHEM TMZWE2309-91-46 10:34:00 Test Item Value Reference Range Interpretation Comments eGFR (test code = eGFR) 104 [facility] HospitalCHEM BRDKT3894-77-58 10:34:00 Test Item Value Reference Range Interpretation Comments Calcium Lvl (test code = Calcium Lvl) 8.7 8.5-10.5 [facility]2019-06-04 10:34:00 Test Item Value Reference Range Interpretation Comments Sodium Lvl (test code = Sodium Lvl) 137 135-145 [facility]2019-06-04 10:34:00 Test Item Value Reference Range Interpretation Comments Chloride Lvl (test code = Chloride Lvl) 104 95-109 [facility]2019-06-04 10:34:00 Test Item Value Reference Range Interpretation Comments Potassium Lvl (test code = Potassium 4.1 3.5-5.1 Lvl) [facility]2019-06-04 10:34:00 Test Item Value Reference Range Interpretation Comments AGAP (test code = AGAP) 11.1 10.0-20.0 [facility]2019-06-04 10:34:00 Test Item Value Reference Range Interpretation Comments CO2 (test code = CO2) 26 24-32 [facility]2019-06-04 10:34:00 Test Item Value Reference Range Interpretation Comments BUN (test code = BUN) 15 7-22 [facility]2019-06-04 10:34:00 Test Item Value Reference Range Interpretation Comments Creatinine Lvl (test code = Creatinine 0.73 0.50-1.40 Lvl) [facility]2019-06-04 10:34:00 Test Item Value Reference Range Interpretation Comments Glucose Lvl (test code = Glucose Lvl) 86 70-99 [facility] HospitalTsejdtdJXPKRBKLPKUKT2280-81-13 10:34:00 Test Item Value Reference Range Interpretation Comments Prolactin Lvl (test code = Prolactin 31.4 Lvl) [facility] CenterRqzkpkbCRULULZNBH1687-68-82 10:34:00 Test Item Value Reference Range Interpretation Comments MPV (test code = MPV) 7.3 7.4-10.4 [facility] CenterUtjrsuzJICUKIQWPP8369-96-57 10:34:00 Test Item Value Reference Range Interpretation Comments MCV (test code = MCV) 69.5 80.0-98.0 [facility] CenterShshwavUYZUWZISUX1360-77-84 10:34:00 Test Item Value Reference Range Interpretation Comments Hct (test code = Hct) 27.8 36.0-48.0 [facility] CenterBhchbycOEEMAHLQAN9158-47-40 10:34:00 Test Item Value Reference Range Interpretation Comments MCHC (test code = MCHC) 31.5 32.0-36.0 [facility] CenterZnuoycuADXACPDNIM7941-49-03 10:34:00 Test Item Value Reference Range Interpretation Comments MCH (test code = MCH) 21.9 pg 27.0-31.0 [facility] CenterWczaqwxBFKFCAZIMI6753-39-69 10:34:00 Test Item Value Reference Range Interpretation Comments Platelet (test code = Platelet) 267 133-450 [facility] CenterCjpsjbcUFDKUASHGU8428-08-63 10:34:00 Test Item Value Reference Range Interpretation Comments RDW (test code = RDW) 18.2 11.5-14.5 [facility] CenterKrbanrwZJEIANKDPC6730-66-02 10:34:00 Test Item Value Reference Range Interpretation Comments WBC (test code = WBC) 5.3 3.7-10.4 [facility] CenterWxaxwjaOEDBUEIFTS6058-03-78 10:34:00 Test Item Value Reference Range Interpretation Comments RBC (test code = RBC) 4.00 4.20-5.40 [facility] CenterKtxjwyrBLUQQZPZPC1538-78-48 10:34:00 Test Item Value Reference Range Interpretation Comments Hgb (test code = Hgb) 8.8 12.0-16.0 [facility] CenterGtwqcuaYNUDWDBEVR5320-63-53 10:34:00 Test Item Value Reference Range Interpretation Comments Segs (test code = Segs) 51.8 45.0-75.0 [facility] CenterOhukjklKZPJYWCRCA9924-70-79 10:34:00 Test Item Value Reference Range Interpretation Comments Monocytes (test code = Monocytes) 7.1 2.0-12.0 [facility] CenterGeynhtpXAIOFKFURA9387-55-64 10:34:00 Test Item Value Reference Range Interpretation Comments Lymphocytes (test code = Lymphocytes) 37.6 20.0-40.0 [facility] CenterUawngebUMVJMUHSQK0901-54-84 10:34:00 Test Item Value Reference Range Interpretation Comments Eosinophils (test code = 3.0 See_Comment [A utomated message] The Eosinophils) system which ge nerated this result tra nsmitted reference range : <=4.0. The reference r alee was not used to int erpret this result as normal/abnormal . [facility] CenterSjjowquXGERDTNVFC6842-36-71 10:34:00 Test Item Value Reference Range Interpretation Comments Plt Morph (test code = Normal (08/23/18 5:34 AM) Plt Morph) [facility] CenterBfosxavVJUJQZEEPU9993-11-98 10:34:00 Test Item Value Reference Range Interpretation Comments Neutrophils # (test code = Neutrophils 2.8 1.5-8.1 #) [facility] CenterCkvtpskWYOBEZLMDV7385-87-35 10:34:00 Test Item Value Reference Range Interpretation Comments Monocytes # (test code 0.4 See_Comment [Aut omated message] The = Monocytes #) system which generated this result tra nsmitted reference range : <=0.8. The reference r alee was not used to int erpret this result as normal/abnormal . [facility] CenterTmuxxluRYTQKGBGRL6374-62-41 10:34:00 Test Item Value Reference Range Interpretation Comments Lymphocytes # (test code = Lymphocytes 2.0 1.0-5.5 #) [facility] CenterZigmefiHYFREMGMRI8750-43-32 10:34:00 Test Item Value Reference Range Interpretation Comments Eosinophils # (test code 0.2 See_Comment [A utomated message] The = Eosinophils #) system whic h generated this result tra nsmitted reference range : <=0.5. The reference r alee was not used to int erpret this result as normal/abnormal . [facility] CenterDgujcebWKNRNIGLTU2100-21-84 10:34:00 Test Item Value Reference Range Interpretation Comments Basophils (test code = 0.5 See_Comment [Aut omated message] The Basophils) system which ge nerated this result tra nsmitted reference range : <=1.0. The reference r alee was not used to int erpret this result as normal/abnormal . [facility]RbchrdiSUCFPBFYVU9570-44-59 10:34:00 Test Item Value Reference Range Interpretation Comments Hypochrom (test code = 1+ (08/23/18 5:34 AM) Hypochrom) [facility] CenterFlvafvnNMTJBVSVSZ3404-76-40 10:34:00 Test Item Value Reference Range Interpretation Comments Microcyte (test code = 2+ *ABN*(08/23/18 5:34 Microcyte) AM) [facility]njkambCDQYAT7819[facility]27-[facility] 10:34:00 Test Item Value Reference Range Interpretation Comments VLDL (test code = VLDL) 28 1 [facility] SoutheastCynipgkNTAUUG0162-15-52 10:34:00 Test Item Value Reference Range Interpretation Comments LDL (Calculated) (test code = LDL 130 (Calculated)) [facility]JewdsuuCSICON6856-77-69 10:34:00 Test Item Value Reference Range Interpretation Comments Chol (test code = Chol) 196 [facility] HospitalFqodkrxHMFTCR9991-48-15 10:34:00 Test Item Value Reference Range Interpretation Comments Trig (test code = Trig) 141 [facility] HospitalQfnlnosRPKQGP4538-84-01 10:34:00 Test Item Value Reference Range Interpretation Comments HDL (test code = HDL) 38 [facility] HospitalKxsrqfcJYCIEB4274-53-09 10:34:00 Test Item Value Reference Range Interpretation Comments CHD Risk (test code = CHD Risk) 5.16 1 3.90-5.80 [facility] XMQEAAVZZ6316-26-97 10:34:00 Test Item Value Reference Range Interpretation Comments Hgb A1C (test code = Hgb A1C) 6.2 [facility]2019-06-04 10:34:00 Test Item Value Reference Range Interpretation Comments eGFR (test code = eGFR) 104 [facility]2019-06-04 10:34:00 Test Item Value Reference Range Interpretation Comments Calcium Lvl (test code = Calcium Lvl) 8.7 8.5-10.5 [facility]2019-06-04 10:34:00 Test Item Value Reference Range Interpretation Comments Sodium Lvl (test code = Sodium Lvl) 137 135-145 [facility]2019-06-04 10:34:00 Test Item Value Reference Range Interpretation Comments Chloride Lvl (test code = Chloride Lvl) 104 95-109 [facility]2019-06-04 10:34:00 Test Item Value Reference Range Interpretation Comments Potassium Lvl (test code = Potassium 4.1 3.5-5.1 Lvl) [facility]2019-06-04 10:34:00 Test Item Value Reference Range Interpretation Comments AGAP (test code = AGAP) 11.1 10.0-20.0 [facility]2019-06-04 10:34:00 Test Item Value Reference Range Interpretation Comments CO2 (test code = CO2) 26 24-32 [facility]2019-06-04 10:34:00 Test Item Value Reference Range Interpretation Comments BUN (test code = BUN) 15 7-22 [facility]2019-06-04 10:34:00 Test Item Value Reference Range Interpretation Comments Creatinine Lvl (test code = Creatinine 0.73 0.50-1.40 Lvl) [facility]2019-06-04 10:34:00 Test Item Value Reference Range Interpretation Comments Glucose Lvl (test code = Glucose Lvl) 86 70-99 [facility]OghhpaqXGMTLPWTLQEGM5261-11-63 10:34:00 Test Item Value Reference Range Interpretation Comments Prolactin Lvl (test code = Prolactin 31.4 Lvl) [facility] CenterYflfvoyPNWRXNVWEJ0409-02-94 10:34:00 Test Item Value Reference Range Interpretation Comments MPV (test code = MPV) 7.3 7.4-10.4 [facility] CenterYapdudmFAYBVFZWDV4661-30-78 10:34:00 Test Item Value Reference Range Interpretation Comments MCV (test code = MCV) 69.5 80.0-98.0 [facility] CenterOvfnucyJRAMYPXLFM5158-61-96 10:34:00 Test Item Value Reference Range Interpretation Comments Hct (test code = Hct) 27.8 36.0-48.0 [facility] CenterYqgwsatKHUZZAMZGS1932-10-18 10:34:00 Test Item Value Reference Range Interpretation Comments MCHC (test code = MCHC) 31.5 32.0-36.0 [facility] CenterCevmdvvPCQOSVKRIZ8381-40-93 10:34:00 Test Item Value Reference Range Interpretation Comments MCH (test code = MCH) 21.9 pg 27.0-31.0 [facility] CenterRuttygcKNHNTFKBDY4235-40-00 10:34:00 Test Item Value Reference Range Interpretation Comments Platelet (test code = Platelet) 267 133-450 [facility] CenterLwawofqWIFMOATTTJ3598-81-37 10:34:00 Test Item Value Reference Range Interpretation Comments RDW (test code = RDW) 18.2 11.5-14.5 [facility] CenterWmukdpbBLLULDBTXY1589-10-48 10:34:00 Test Item Value Reference Range Interpretation Comments WBC (test code = WBC) 5.3 3.7-10.4 [facility] CenterTwmiaweQADNHJZBQZ6027-45-30 10:34:00 Test Item Value Reference Range Interpretation Comments RBC (test code = RBC) 4.00 4.20-5.40 [facility] CenterLjilnshGHTPXWUZWU7576-58-46 10:34:00 Test Item Value Reference Range Interpretation Comments Hgb (test code = Hgb) 8.8 12.0-16.0 [facility] CenterLuqanngMVRMZUZAEH0701-26-33 10:34:00 Test Item Value Reference Range Interpretation Comments Segs (test code = Segs) 51.8 45.0-75.0 [facility] CenterNsluzayMGSSQLTUBY8280-36-04 10:34:00 Test Item Value Reference Range Interpretation Comments Monocytes (test code = Monocytes) 7.1 2.0-12.0 [facility] CenterGgfdydqQYCVDDVDNM4719-59-84 10:34:00 Test Item Value Reference Range Interpretation Comments Lymphocytes (test code = Lymphocytes) 37.6 20.0-40.0 [facility] CenterPwwkvzcUJOTYBRNUQ2318-05-31 10:34:00 Test Item Value Reference Range Interpretation Comments Eosinophils (test code = 3.0 See_Comment [A utomated message] The Eosinophils) system which ge nerated this result tra nsmitted reference range : <=4.0. The reference r alee was not used to int erpret this result as normal/abnormal . [facility] CenterIejoppeTLTEBJQDGM9773-74-19 10:34:00 Test Item Value Reference Range Interpretation Comments Plt Morph (test code = Normal (08/23/18 5:34 AM) Plt Morph) [facility] CenterPgwcnxxQEIJNYGSRA7339-64-07 10:34:00 Test Item Value Reference Range Interpretation Comments Neutrophils # (test code = Neutrophils 2.8 1.5-8.1 #) [facility] CenterHpzjzbzOGVTSGVWSE1527-68-39 10:34:00 Test Item Value Reference Range Interpretation Comments Monocytes # (test code 0.4 See_Comment [Aut omated message] The = Monocytes #) system which generated this result tra nsmitted reference range : <=0.8. The reference r alee was not used to int erpret this result as normal/abnormal . [facility] CenterNjclulqEFCNVIOKWI5103-36-87 10:34:00 Test Item Value Reference Range Interpretation Comments Lymphocytes # (test code = Lymphocytes 2.0 1.0-5.5 #) [facility] CenterNvxqboxBJWDGPSHHE3962-72-04 10:34:00 Test Item Value Reference Range Interpretation Comments Eosinophils # (test code 0.2 See_Comment [A utomated message] The = Eosinophils #) system whic h generated this result tra nsmitted reference range : <=0.5. The reference r alee was not used to int erpret this result as normal/abnormal . [facility]YtrmkuhZCOTWBLNKV0453-40-35 10:34:00 Test Item Value Reference Range Interpretation Comments Basophils (test code = 0.5 See_Comment [Aut omated message] The Basophils) system which ge nerated this result tra nsmitted reference range : <=1.0. The reference r alee was not used to int erpret this result as normal/abnormal . [facility] HospitalNkvfmeaWBYCAFVEUL2361-18-16 10:34:00 Test Item Value Reference Range Interpretation Comments Hypochrom (test code = 1+ (08/23/18 5:34 AM) Hypochrom) [facility] HospitalLulqkvePZCKNFKIYY1002-71-24 10:34:00 Test Item Value Reference Range Interpretation Comments Microcyte (test code = 2+ *ABN*(08/23/18 5:34 Microcyte) AM) [facility] HospitalYnepaegHNIEAI6013-97-98 10:34:00 Test Item Value Reference Range Interpretation Comments VLDL (test code = VLDL) 28 1 [facility] HospitalNcgpkdnGWVPMP0499-57-14 10:34:00 Test Item Value Reference Range Interpretation Comments LDL (Calculated) (test code = LDL 130 (Calculated)) [facility] HospitalHqctmleILYVGA2497-37-25 10:34:00 Test Item Value Reference Range Interpretation Comments Chol (test code = Chol) 196 [facility] HospitalWiufguoGTOQNZ5984-47-79 10:34:00 Test Item Value Reference Range Interpretation Comments Trig (test code = Trig) 141 [facility] CenterIwkxiciQVEWBH9111-72-98 10:34:00 Test Item Value Reference Range Interpretation Comments HDL (test code = HDL) 38 [facility] HospitalZafimrpYVFUVU9939-74-99 10:34:00 Test Item Value Reference Range Interpretation Comments CHD Risk (test code = CHD Risk) 5.16 1 3.90-5.80 [facility] XCLWLPPZL2007-74-32 10:34:00 Test Item Value Reference Range Interpretation Comments Hgb A1C (test code = Hgb A1C) 6.2 [facility] HospitalCHEM VRNHS2757-97-48 10:34:00 Test Item Value Reference Range Interpretation Comments eGFR (test code = eGFR) 104 [facility]CHEM AWGOC9015-38-18 10:34:00 Test Item Value Reference Range Interpretation Comments Calcium Lvl (test code = Calcium Lvl) 8.7 8.5-10.5 [facility]2019-06-04 10:34:00 Test Item Value Reference Range Interpretation Comments Sodium Lvl (test code = Sodium Lvl) 137 135-145 [facility]2019-06-04 10:34:00 Test Item Value Reference Range Interpretation Comments Chloride Lvl (test code = Chloride Lvl) 104 95-109 [facility]2019-06-04 10:34:00 Test Item Value Reference Range Interpretation Comments Potassium Lvl (test code = Potassium 4.1 3.5-5.1 Lvl) [facility]2019-06-04 10:34:00 Test Item Value Reference Range Interpretation Comments AGAP (test code = AGAP) 11.1 10.0-20.0 [facility]2019-06-04 10:34:00 Test Item Value Reference Range Interpretation Comments CO2 (test code = CO2) 26 24-32 [facility]2019-06-04 10:34:00 Test Item Value Reference Range Interpretation Comments BUN (test code = BUN) 15 7-22 [facility]2019-06-04 10:34:00 Test Item Value Reference Range Interpretation Comments Creatinine Lvl (test code = Creatinine 0.73 0.50-1.40 Lvl) [facility]2019-06-04 10:34:00 Test Item Value Reference Range Interpretation Comments Glucose Lvl (test code = Glucose Lvl) 86 70-99 [facility] HospitalFkgljlhGPICVMLOUIFCD1092-54-81 10:34:00 Test Item Value Reference Range Interpretation Comments Prolactin Lvl (test code = Prolactin 31.4 Lvl) [facility] CenterRaaohuqEZYBAAJYUW8068-73-31 10:34:00 Test Item Value Reference Range Interpretation Comments MPV (test code = MPV) 7.3 7.4-10.4 [facility] CenterGvjdemfLEIAJCHUJN1125-24-68 10:34:00 Test Item Value Reference Range Interpretation Comments MCV (test code = MCV) 69.5 80.0-98.0 [facility] CenterRmdcpxzKRHMUKFSET5519-45-95 10:34:00 Test Item Value Reference Range Interpretation Comments Hct (test code = Hct) 27.8 36.0-48.0 [facility] CenterWdmyugnJLSSMPHOBA6618-20-03 10:34:00 Test Item Value Reference Range Interpretation Comments MCHC (test code = MCHC) 31.5 32.0-36.0 [facility] CenterGpmkctlQODGORAXCK8124-55-60 10:34:00 Test Item Value Reference Range Interpretation Comments MCH (test code = MCH) 21.9 pg 27.0-31.0 [facility] CenterJmnqtvmPJJPFGBBEE2136-87-26 10:34:00 Test Item Value Reference Range Interpretation Comments Platelet (test code = Platelet) 267 133-450 [facility] CenterYmyinnpFTXLGXEPGI5385-68-74 10:34:00 Test Item Value Reference Range Interpretation Comments RDW (test code = RDW) 18.2 11.5-14.5 [facility] CenterHkfphxsCTALJMKHEA2764-04-44 10:34:00 Test Item Value Reference Range Interpretation Comments WBC (test code = WBC) 5.3 3.7-10.4 [facility] CenterEafwbtfDHAITYQRBJ4786-14-97 10:34:00 Test Item Value Reference Range Interpretation Comments RBC (test code = RBC) 4.00 4.20-5.40 [facility] CenterGjsxengAKNJKGDVQB1429-62-30 10:34:00 Test Item Value Reference Range Interpretation Comments Hgb (test code = Hgb) 8.8 12.0-16.0 [facility] CenterPyxyrqmEGVQNDGJDJ5417-78-39 10:34:00 Test Item Value Reference Range Interpretation Comments Segs (test code = Segs) 51.8 45.0-75.0 [facility] CenterCacvlucXDJUGCNJTO6423-70-40 10:34:00 Test Item Value Reference Range Interpretation Comments Monocytes (test code = Monocytes) 7.1 2.0-12.0 [facility] CenterKqomrmkISHVEPXKFB0810-32-48 10:34:00 Test Item Value Reference Range Interpretation Comments Lymphocytes (test code = Lymphocytes) 37.6 20.0-40.0 [facility] CenterFldlhaeTLIVMKTTUH4284-07-87 10:34:00 Test Item Value Reference Range Interpretation Comments Eosinophils (test code = 3.0 See_Comment [A utomated message] The Eosinophils) system which ge nerated this result tra nsmitted reference range : <=4.0. The reference r alee was not used to int erpret this result as normal/abnormal . [facility] CenterPxaafeyBFJNILVLWH4389-91-33 10:34:00 Test Item Value Reference Range Interpretation Comments Plt Morph (test code = Normal (08/23/18 5:34 AM) Plt Morph) [facility] CenterYyaecdkHUOMRBGRZK9412-47-83 10:34:00 Test Item Value Reference Range Interpretation Comments Neutrophils # (test code = Neutrophils 2.8 1.5-8.1 #) [facility] CenterVdnlymhNQGJDTTHVM4790-06-09 10:34:00 Test Item Value Reference Range Interpretation Comments Monocytes # (test code 0.4 See_Comment [Aut omated message] The = Monocytes #) system which generated this result tra nsmitted reference range : <=0.8. The reference r alee was not used to int erpret this result as normal/abnormal . [facility] CenterLdspvvdHVYMRKCFJR3717-87-16 10:34:00 Test Item Value Reference Range Interpretation Comments Lymphocytes # (test code = Lymphocytes 2.0 1.0-5.5 #) [facility] CenterVhyisfbLGWWLZTDKI7089-94-04 10:34:00 Test Item Value Reference Range Interpretation Comments Eosinophils # (test code 0.2 See_Comment [A utomated message] The = Eosinophils #) system whic h generated this result tra nsmitted reference range : <=0.5. The reference r alee was not used to int erpret this result as normal/abnormal . [facility] CenterEidkrfiPZKOMQIXHR3945-58-14 10:34:00 Test Item Value Reference Range Interpretation Comments Basophils (test code = 0.5 See_Comment [Aut omated message] The Basophils) system which ge nerated this result tra nsmitted reference range : <=1.0. The reference r alee was not used to int erpret this result as normal/abnormal . [facility] CenterClqsrbrJMXROBIZTJ4967-15-09 10:34:00 Test Item Value Reference Range Interpretation Comments Hypochrom (test code = 1+ (08/23/18 5:34 AM) Hypochrom) [facility] CenterCdjwndhYNQCTMSDTW1910-93-89 10:34:00 Test Item Value Reference Range Interpretation Comments Microcyte (test code = 2+ *ABN*(08/23/18 5:34 Microcyte) AM) [facility]OlhcfbwFGGEJD3273-94-10 10:34:00 Test Item Value Reference Range Interpretation Comments VLDL (test code = VLDL) 28 1 [facility] SoutheastNfczknaVDIUIM7717-32-47 10:34:00 Test Item Value Reference Range Interpretation Comments LDL (Calculated) (test code = LDL 130 (Calculated)) [facility] HospitalDtuoxwpPCYFJA2244-15-24 10:34:00 Test Item Value Reference Range Interpretation Comments Chol (test code = Chol) 196 [facility] HospitalJtfhikpMFYIPZ5663-36-71 10:34:00 Test Item Value Reference Range Interpretation Comments Trig (test code = Trig) 141 [facility] HospitalDzitrlqIDKTVR6471-45-89 10:34:00 Test Item Value Reference Range Interpretation Comments HDL (test code = HDL) 38 [facility] HospitalKxyxoqjZHWVKJ7094-09-53 10:34:00 Test Item Value Reference Range Interpretation Comments CHD Risk (test code = CHD Risk) 5.16 1 3.90-5.80 [facility] EUZQNRHBJ1581-59-74 10:34:00 Test Item Value Reference Range Interpretation Comments Hgb A1C (test code = Hgb A1C) 6.2 [facility] HospitalBuscoTurno YVYQL1589-23-33 10:34:00 Test Item Value Reference Range Interpretation Comments eGFR (test code = eGFR) 104 [facility] HospitalBuscoTurno TFTES1770-25-17 10:34:00 Test Item Value Reference Range Interpretation Comments Calcium Lvl (test code = Calcium Lvl) 8.7 8.5-10.5 [facility]Busco[facility] NSSHU1893-49-53 10:34:00 Test Item Value Reference Range Interpretation Comments Sodium Lvl (test code = Sodium Lvl) 137 135-145 [facility]Bus[facility] HUXPW7485-93-81 10:34:00 Test Item Value Reference Range Interpretation Comments Chloride Lvl (test code = Chloride Lvl) 104 95-109 [facility]Bus[facility] VWJMC8589-04-42 10:34:00 Test Item Value Reference Range Interpretation Comments Potassium Lvl (test code = Potassium 4.1 3.5-5.1 Lvl) [facility]Busco[facility] PSSJS3404-32-07 10:34:00 Test Item Value Reference Range Interpretation Comments AGAP (test code = AGAP) 11.1 10.0-20.0 [facility]Bus[facility] [id number] 10:34:00 Test Item Value Reference Range Interpretation Comments CO2 (test code = CO2) 26 24-32 [facility] [id number] 10:34:00 Test Item Value Reference Range Interpretation Comments BUN (test code = BUN) 15 7-22 [facility]2019-06-04 10:34:00 Test Item Value Reference Range Interpretation Comments Creatinine Lvl (test code = Creatinine 0.73 0.50-1.40 Lvl) [facility]2019-06-04 10:34:00 Test Item Value Reference Range Interpretation Comments Glucose Lvl (test code = Glucose Lvl) 86 70-99 [facility] HospitalFqnakbvTOPZVGHIUYQSD8819-75-06 10:34:00 Test Item Value Reference Range Interpretation Comments Prolactin Lvl (test code = Prolactin 31.4 Lvl) [facility] CenterTucroovXUNVXQCPRY9166-33-54 10:34:00 Test Item Value Reference Range Interpretation Comments MPV (test code = MPV) 7.3 7.4-10.4 [facility] CenterIksrynvANPTPRLFHP4600-42-52 10:34:00 Test Item Value Reference Range Interpretation Comments MCV (test code = MCV) 69.5 80.0-98.0 [facility] CenterUtalabdWTLAGGPLPH9675-27-64 10:34:00 Test Item Value Reference Range Interpretation Comments Hct (test code = Hct) 27.8 36.0-48.0 [facility] CenterTnwdqtfOJSIMANYFZ0034-46-58 10:34:00 Test Item Value Reference Range Interpretation Comments MCHC (test code = MCHC) 31.5 32.0-36.0 [facility] CenterZklbsggGIXTCERISL3892-34-81 10:34:00 Test Item Value Reference Range Interpretation Comments MCH (test code = MCH) 21.9 pg 27.0-31.0 [facility] CenterGygifgfYJAPVAUNUT5861-53-10 10:34:00 Test Item Value Reference Range Interpretation Comments Platelet (test code = Platelet) 267 133-450 [facility] CenterAixlxpwRGNOVFGDYF7049-92-41 10:34:00 Test Item Value Reference Range Interpretation Comments RDW (test code = RDW) 18.2 11.5-14.5 [facility] CenterImwwwrzYIAVPLNPPJ7612-34-80 10:34:00 Test Item Value Reference Range Interpretation Comments WBC (test code = WBC) 5.3 3.7-10.4 [facility] CenterTfpzxtrLEWCWFXPIG6338-19-57 10:34:00 Test Item Value Reference Range Interpretation Comments RBC (test code = RBC) 4.00 4.20-5.40 [facility] CenterDzjfhuvXIWQBYAQCZ9641-46-79 10:34:00 Test Item Value Reference Range Interpretation Comments Hgb (test code = Hgb) 8.8 12.0-16.0 [facility] CenterCzvudewCWNMWSXWBX5701-61-38 10:34:00 Test Item Value Reference Range Interpretation Comments Segs (test code = Segs) 51.8 45.0-75.0 [facility] CenterRtivbhaTXRAYCYTMM4459-78-30 10:34:00 Test Item Value Reference Range Interpretation Comments Monocytes (test code = Monocytes) 7.1 2.0-12.0 [facility] CenterUqihxgoKRALLBGYWE0835-34-39 10:34:00 Test Item Value Reference Range Interpretation Comments Lymphocytes (test code = Lymphocytes) 37.6 20.0-40.0 [facility] CenterSxefqbiPDRAOFQTEY7019-31-28 10:34:00 Test Item Value Reference Range Interpretation Comments Eosinophils (test code = 3.0 See_Comment [A utomated message] The Eosinophils) system which ge nerated this result tra nsmitted reference range : <=4.0. The reference r alee was not used to int erpret this result as normal/abnormal . [facility] CenterNdnkkgtDKJGNTRUVG9365-90-30 10:34:00 Test Item Value Reference Range Interpretation Comments Plt Morph (test code = Normal (08/23/18 5:34 AM) Plt Morph) [facility] CenterWzjvqiwTAFWXPOELA9884-18-94 10:34:00 Test Item Value Reference Range Interpretation Comments Neutrophils # (test code = Neutrophils 2.8 1.5-8.1 #) [facility] CenterGpcxqmzKFOJFIDWTZ8130-97-25 10:34:00 Test Item Value Reference Range Interpretation Comments Monocytes # (test code 0.4 See_Comment [Aut omated message] The = Monocytes #) system which generated this result tra nsmitted reference range : <=0.8. The reference r alee was not used to int erpret this result as normal/abnormal . [facility] CenterCnqwqhbVUPQBFWBEZ8544-78-88 10:34:00 Test Item Value Reference Range Interpretation Comments Lymphocytes # (test code = Lymphocytes 2.0 1.0-5.5 #) [facility] CenterBwpmyslPBFWNETSJV6483-10-86 10:34:00 Test Item Value Reference Range Interpretation Comments Eosinophils # (test code 0.2 See_Comment [A utomated message] The = Eosinophils #) system whic h generated this result tra nsmitted reference range : <=0.5. The reference r alee was not used to int erpret this result as normal/abnormal . [facility]PthlnhjBGFMOIPIMN4971-05-10 10:34:00 Test Item Value Reference Range Interpretation Comments Basophils (test code = 0.5 See_Comment [Aut omated message] The Basophils) system which ge nerated this result tra nsmitted reference range : <=1.0. The reference r alee was not used to int erpret this result as normal/abnormal . [facility] HospitalNlslmlnPXKOBQNTSF5384-29-23 10:34:00 Test Item Value Reference Range Interpretation Comments Hypochrom (test code = 1+ (08/23/18 5:34 AM) Hypochrom) [facility] HospitalJutadqdHNZMDQQDEE3755-26-51 10:34:00 Test Item Value Reference Range Interpretation Comments Microcyte (test code = 2+ *ABN*(08/23/18 5:34 Microcyte) AM) [facility] HospitalXqgucrhFWLNOB5730-25-03 10:34:00 Test Item Value Reference Range Interpretation Comments VLDL (test code = VLDL) 28 1 [facility] HospitalVqwkrwdBPXBXI0784-32-32 10:34:00 Test Item Value Reference Range Interpretation Comments LDL (Calculated) (test code = LDL 130 (Calculated)) [facility] HospitalHagnaqiLWJFTL7574-66-80 10:34:00 Test Item Value Reference Range Interpretation Comments Chol (test code = Chol) 196 [facility] HospitalAgbpsavUKPPUI4677-45-47 10:34:00 Test Item Value Reference Range Interpretation Comments Trig (test code = Trig) 141 [facility] CenterTicnqnpUIPWLK7946-10-66 10:34:00 Test Item Value Reference Range Interpretation Comments HDL (test code = HDL) 38 [facility] HospitalIqxmuboBYTCXT9995-89-41 10:34:00 Test Item Value Reference Range Interpretation Comments CHD Risk (test code = CHD Risk) 5.16 1 3.90-5.80 [facility] PFNJAZNNM2238-97-45 10:34:00 Test Item Value Reference Range Interpretation Comments Hgb A1C (test code = Hgb A1C) 6.2 [facility]CHE[facility] KWDOE4180-04-72 10:34:00 Test Item Value Reference Range Interpretation Comments eGFR (test code = eGFR) 104 [facility]CHE[facility] LFMIQ6453-51-35 10:34:00 Test Item Value Reference Range Interpretation Comments Calcium Lvl (test code = Calcium Lvl) 8.7 8.5-10.5 [facility]2019-06-04 10:34:00 Test Item Value Reference Range Interpretation Comments Sodium Lvl (test code = Sodium Lvl) 137 135-145 [facility]2019-06-04 10:34:00 Test Item Value Reference Range Interpretation Comments Chloride Lvl (test code = Chloride Lvl) 104 95-109 [facility]2019-06-04 10:34:00 Test Item Value Reference Range Interpretation Comments Potassium Lvl (test code = Potassium 4.1 3.5-5.1 Lvl) [facility]2019-06-04 10:34:00 Test Item Value Reference Range Interpretation Comments AGAP (test code = AGAP) 11.1 10.0-20.0 [facility]2019-06-04 10:34:00 Test Item Value Reference Range Interpretation Comments CO2 (test code = CO2) 26 24-32 [facility]2019-06-04 10:34:00 Test Item Value Reference Range Interpretation Comments BUN (test code = BUN) 15 7-22 [facility]2019-06-04 10:34:00 Test Item Value Reference Range Interpretation Comments Creatinine Lvl (test code = Creatinine 0.73 0.50-1.40 Lvl) [facility]2019-06-04 10:34:00 Test Item Value Reference Range Interpretation Comments Glucose Lvl (test code = Glucose Lvl) 86 70-99 [facility]UU0421-[facility]-18 10:34:00 Test Item Value Reference Range Interpretation Comments Prolactin Lvl (test code = Prolactin 31.4 Lvl) [facility]QfvnipzCYVZFKEDJS9303-19-75 10:34:00 Test Item Value Reference Range Interpretation Comments MPV (test code = MPV) 7.3 7.4-10.4 [facility]CdtpgyiDKZOIFXWHB6479-93-16 10:34:00 Test Item Value Reference Range Interpretation Comments MCV (test code = MCV) 69.5 80.0-98.0 [facility] CenterNxwkflyQWKMCCMPRJ3889-41-51 10:34:00 Test Item Value Reference Range Interpretation Comments Hct (test code = Hct) 27.8 36.0-48.0 [facility] CenterItbcqeoKLAQKBYHWA2661-02-59 10:34:00 Test Item Value Reference Range Interpretation Comments MCHC (test code = MCHC) 31.5 32.0-36.0 [facility] CenterHknxqmhUARRQKZUCS3692-67-99 10:34:00 Test Item Value Reference Range Interpretation Comments MCH (test code = MCH) 21.9 pg 27.0-31.0 [facility] CenterJcgotlpDMARCJUZCJ0710-97-11 10:34:00 Test Item Value Reference Range Interpretation Comments Platelet (test code = Platelet) 267 133-450 [facility] CenterYehnjdnTFSIXDUJAP8102-95-63 10:34:00 Test Item Value Reference Range Interpretation Comments RDW (test code = RDW) 18.2 11.5-14.5 [facility] CenterAwtsfddEROPQDWYHE4416-83-89 10:34:00 Test Item Value Reference Range Interpretation Comments WBC (test code = WBC) 5.3 3.7-10.4 [facility] CenterNaxatigVVHBHRQTTD0446-59-15 10:34:00 Test Item Value Reference Range Interpretation Comments RBC (test code = RBC) 4.00 4.20-5.40 [facility] CenterLgesuslVENOEKRCHS3304-70-48 10:34:00 Test Item Value Reference Range Interpretation Comments Hgb (test code = Hgb) 8.8 12.0-16.0 [facility] CenterIqbdsliAEPYVEYYNX6598-95-90 10:34:00 Test Item Value Reference Range Interpretation Comments Segs (test code = Segs) 51.8 45.0-75.0 [facility] CenterZzazigdOJZHZEYVUY8090-60-99 10:34:00 Test Item Value Reference Range Interpretation Comments Monocytes (test code = Monocytes) 7.1 2.0-12.0 [facility] CenterUiwbnbiOFLIDHUABQ0235-27-12 10:34:00 Test Item Value Reference Range Interpretation Comments Lymphocytes (test code = Lymphocytes) 37.6 20.0-40.0 [facility] CenterSjblojkSNGIVSUBST8706-99-50 10:34:00 Test Item Value Reference Range Interpretation Comments Eosinophils (test code = 3.0 See_Comment [A utomated message] The Eosinophils) system which ge nerated this result tra nsmitted reference range : <=4.0. The reference r alee was not used to int erpret this result as normal/abnormal . [facility] CenterEyvwyomXBLUJCAITN7085-10-77 10:34:00 Test Item Value Reference Range Interpretation Comments Plt Morph (test code = Normal (6/4/19 5:34 AM) Plt Morph) [facility] CenterMkesgpvBRMMCJMATJ7836-37-33 10:34:00 Test Item Value Reference Range Interpretation Comments Neutrophils # (test code = Neutrophils 2.8 1.5-8.1 #) [facility] CenterOkncvijAGIPWPNUDB8462-81-89 10:34:00 Test Item Value Reference Range Interpretation Comments Monocytes # (test code 0.4 See_Comment [Aut omated message] The = Monocytes #) system which generated this result tra nsmitted reference range : <=0.8. The reference r alee was not used to int erpret this result as normal/abnormal . [facility] CenterLeyxwcnXSKSIQTAPA4006-05-81 10:34:00 Test Item Value Reference Range Interpretation Comments Lymphocytes # (test code = Lymphocytes 2.0 1.0-5.5 #) [facility] CenterBxausqwAABPXKCQWQ1956-44-84 10:34:00 Test Item Value Reference Range Interpretation Comments Eosinophils # (test code 0.2 See_Comment [A utomated message] The = Eosinophils #) system whic h generated this result tra nsmitted reference range : <=0.5. The reference r alee was not used to int erpret this result as normal/abnormal . [facility] CenterWrpkqttMBASVJRHLV1635-51-52 10:34:00 Test Item Value Reference Range Interpretation Comments Basophils (test code = 0.5 See_Comment [Aut omated message] The Basophils) system which ge nerated this result tra nsmitted reference range : <=1.0. The reference r alee was not used to int erpret this result as normal/abnormal . [facility] CenterJhofljkUXOBZXBFZV9588-89-71 10:34:00 Test Item Value Reference Range Interpretation Comments Hypochrom (test code = 1+ (08/23/18 5:34 AM) Hypochrom) [facility] CenterAfwclkuSGYYHPPJLW7121-41-14 10:34:00 Test Item Value Reference Range Interpretation Comments Microcyte (test code = 2+ *ABN*(08/23/18 5:34 Microcyte) AM) [facility]lufnylNHWPOU2365[facility]35-[facility] 10:34:00 Test Item Value Reference Range Interpretation Comments VLDL (test code = VLDL) 28 1 [facility] SoutheastTdpllpxEHFWIR2721-05-42 10:34:00 Test Item Value Reference Range Interpretation Comments LDL (Calculated) (test code = LDL 130 (Calculated)) [facility]DttccdiZJHRLM4645-57-86 10:34:00 Test Item Value Reference Range Interpretation Comments Chol (test code = Chol) 196 [facility] CenterTaxhhopERIGCP7838-82-03 10:34:00 Test Item Value Reference Range Interpretation Comments Trig (test code = Trig) 141 [facility] CenterPrvxntlAUKYNU4007-60-56 10:34:00 Test Item Value Reference Range Interpretation Comments HDL (test code = HDL) 38 [facility] CenterLjsszhuUXEDIE2169-15-81 10:34:00 Test Item Value Reference Range Interpretation Comments CHD Risk (test code = CHD Risk) 5.16 1 3.90-5.80 [facility] TGCIYOHAL8812-33-81 10:34:00 Test Item Value Reference Range Interpretation Comments Hgb A1C (test code = Hgb A1C) 6.2 [facility] AND [id number] 10:00:00 Test Item Value Reference Range Interpretation Comments UA Bacteria (test code = UA Few /HPF Bacteria) [facility] AND [id number] 10:00:00 Test Item Value Reference Range Interpretation Comments UA Sq Epi (test code = UA Sq Epi) Many /LPF [facility] AND [id number] 10:00:00 Test Item Value Reference Range Interpretation Comments UA WBC (test code = 2 See_Comment [Automa kenroy message] The UA WBC) system which ge nerated this result transmit kenroy reference range : <=5. The reference range was not used to interpr et this result as elton l/abnormal. [facility] AND [id number] 10:00:00 Test Item Value Reference Range Interpretation Comments UA RBC (test code = 1 See_Comment [Automa kenroy message] The UA RBC) system which ge nerated this result transmit kenroy reference range : <=2. The reference range was not used to interpr et this result as elton l/abnormal. [facility] AND [id number] 10:00:00 Test Item Value Reference Range Interpretation Comments UA Hyal Cast (test 3 See_Comment [Automat ed message] The code = UA Hyal Cast) system which generated this result transmit kenroy reference range : <=2. The reference range was not used to interpr et this result as elton l/abnormal. [facility] AND [id number] 10:00:00 Test Item Value Reference Range Interpretation Comments UA Mucus (test code = UA Mucus) Few /LPF [facility] AND [id number] 10:00:00 Test Item Value Reference Range Interpretation Comments UA Amorph Liat (test code = Occasional /HPF UA Amorph Liat) [facility] AND [id number] 10:00:00 Test Item Value Reference Range Interpretation Comments UA Color (test code = Yellow *NA*(08/23/18 5:00 UA Color) AM) [facility] AND [id number] 10:00:00 Test Item Value Reference Range Interpretation Comments UA Turbidity (test code Slight *ABN*(08/23/18 = UA Turbidity) 5:00 AM) [facility] AND [id number] 10:00:00 Test Item Value Reference Range Interpretation Comments UA Nitrite (test code Negative (08/23/18 5:00 = UA Nitrite) AM) [facility] AND [id number] 10:00:00 Test Item Value Reference Range Interpretation Comments UA Leuk Est (test code Trace *ABN*(08/23/18 5:00 = UA Leuk Est) AM) [facility] AND [id number] 10:00:00 Test Item Value Reference Range Interpretation Comments UA Spec Grav (test code = UA Spec 1.016 1 Grav) [facility] AND [id number] 10:00:00 Test Item Value Reference Range Interpretation Comments UA pH (test code = UA pH) 5.0 1 5.0-8.0 [facility] AND [id number] 10:00:00 Test Item Value Reference Range Interpretation Comments UA Protein (test code Negative (08/23/18 5:00 = UA Protein) AM) [facility] AND [id number] 10:00:00 Test Item Value Reference Range Interpretation Comments UA Ketones (test code Negative *NA*(08/23/18 = UA Ketones) 5:00 AM) [facility] AND [id number] 10:00:00 Test Item Value Reference Range Interpretation Comments UA Bili (test code = Negative *NA*(08/23/18 UA Bili) 5:00 AM) [facility] AND [id number] 10:00:00 Test Item Value Reference Range Interpretation Comments UA Blood (test code = Negative (08/23/18 5:00 UA Blood) AM) [facility] AND [id number] 10:00:00 Test Item Value Reference Range Interpretation Comments UA Urobilinogen (test code = UA <=1.0 mg/dL 0.1-1.0 Urobilinogen) [facility] AND [id number] 10:00:00 Test Item Value Reference Range Interpretation Comments UA Glucose (test code Negative *NA*(08/23/18 = UA Glucose) 5:00 AM) [facility] AND [id number] 10:00:00 Test Item Value Reference Range Interpretation Comments UA Bacteria (test code = UA Few /HPF Bacteria) [facility] AND [id number] 10:00:00 Test Item Value Reference Range Interpretation Comments UA Sq Epi (test code = UA Sq Epi) Many /LPF [facility] AND [id number] 10:00:00 Test Item Value Reference Range Interpretation Comments UA WBC (test code = 2 See_Comment [Automa kenroy message] The UA WBC) system which ge nerated this result transmit kenroy reference range : <=5. The reference range was not used to interpr et this result as elton l/abnormal. [facility] AND [id number] 10:00:00 Test Item Value Reference Range Interpretation Comments UA RBC (test code = 1 See_Comment [Automa kenroy message] The UA RBC) system which ge nerated this result transmit kenroy reference range : <=2. The reference range was not used to interpr et this result as elton l/abnormal. [facility] AND [id number] 10:00:00 Test Item Value Reference Range Interpretation Comments UA Hyal Cast (test 3 See_Comment [Automat ed message] The code = UA Hyal Cast) system which generated this result transmit kenroy reference range : <=2. The reference range was not used to interpr et this result as elton l/abnormal. [facility] AND [id number] 10:00:00 Test Item Value Reference Range Interpretation Comments UA Mucus (test code = UA Mucus) Few /LPF [facility] AND [id number] 10:00:00 Test Item Value Reference Range Interpretation Comments UA Amorph Liat (test code = Occasional /HPF UA Amorph Liat) [facility] AND [id number] 10:00:00 Test Item Value Reference Range Interpretation Comments UA Color (test code = Yellow *NA*(08/23/18 5:00 UA Color) AM) [facility] AND [id number] 10:00:00 Test Item Value Reference Range Interpretation Comments UA Turbidity (test code Slight *ABN*(08/23/18 = UA Turbidity) 5:00 AM) [facility] AND [id number] 10:00:00 Test Item Value Reference Range Interpretation Comments UA Nitrite (test code Negative (08/23/18 5:00 = UA Nitrite) AM) [facility] AND [id number] 10:00:00 Test Item Value Reference Range Interpretation Comments UA Leuk Est (test code Trace *ABN*(08/23/18 5:00 = UA Leuk Est) AM) [facility] AND [id number] 10:00:00 Test Item Value Reference Range Interpretation Comments UA Spec Grav (test code = UA Spec 1.016 1 Grav) [facility] AND [id number] 10:00:00 Test Item Value Reference Range Interpretation Comments UA pH (test code = UA pH) 5.0 1 5.0-8.0 [facility] AND [id number] 10:00:00 Test Item Value Reference Range Interpretation Comments UA Protein (test code Negative (08/23/18 5:00 = UA Protein) AM) [facility] AND [id number] 10:00:00 Test Item Value Reference Range Interpretation Comments UA Ketones (test code Negative *NA*(08/23/18 = UA Ketones) 5:00 AM) [facility] AND [id number] 10:00:00 Test Item Value Reference Range Interpretation Comments UA Bili (test code = Negative *NA*(08/23/18 UA Bili) 5:00 AM) [facility] AND [id number] 10:00:00 Test Item Value Reference Range Interpretation Comments UA Blood (test code = Negative (08/23/18 5:00 UA Blood) AM) [facility] AND [id number] 10:00:00 Test Item Value Reference Range Interpretation Comments UA Urobilinogen (test code = UA <=1.0 mg/dL 0.1-1.0 Urobilinogen) [facility] AND [id number] 10:00:00 Test Item Value Reference Range Interpretation Comments UA Glucose (test code Negative *NA*(08/23/18 = UA Glucose) 5:00 AM) [facility] AND [id number] 10:00:00 Test Item Value Reference Range Interpretation Comments UA Bacteria (test code = UA Few /HPF Bacteria) [facility] AND [id number] 10:00:00 Test Item Value Reference Range Interpretation Comments UA Sq Epi (test code = UA Sq Epi) Many /LPF [facility] AND [id number] 10:00:00 Test Item Value Reference Range Interpretation Comments UA WBC (test code = 2 See_Comment [Automa kenroy message] The UA WBC) system which ge nerated this result transmit kenroy reference range : <=5. The reference range was not used to interpr et this result as elton l/abnormal. [facility] AND [id number] 10:00:00 Test Item Value Reference Range Interpretation Comments UA RBC (test code = 1 See_Comment [Automa kenroy message] The UA RBC) system which ge nerated this result transmit kenroy reference range : <=2. The reference range was not used to interpr et this result as elton l/abnormal. [facility] AND [id number] 10:00:00 Test Item Value Reference Range Interpretation Comments UA Hyal Cast (test 3 See_Comment [Automat ed message] The code = UA Hyal Cast) system which generated this result transmit kenroy reference range : <=2. The reference range was not used to interpr et this result as elton l/abnormal. [facility] AND [id number] 10:00:00 Test Item Value Reference Range Interpretation Comments UA Mucus (test code = UA Mucus) Few /LPF [facility] AND [id number] 10:00:00 Test Item Value Reference Range Interpretation Comments UA Amorph Liat (test code = Occasional /HPF UA Amorph Liat) [facility] AND [id number] 10:00:00 Test Item Value Reference Range Interpretation Comments UA Color (test code = Yellow *NA*(08/23/18 5:00 UA Color) AM) [facility] AND [id number] 10:00:00 Test Item Value Reference Range Interpretation Comments UA Turbidity (test code Slight *ABN*(08/23/18 = UA Turbidity) 5:00 AM) [facility] AND [id number] 10:00:00 Test Item Value Reference Range Interpretation Comments UA Nitrite (test code Negative (08/23/18 5:00 = UA Nitrite) AM) [facility] AND [id number] 10:00:00 Test Item Value Reference Range Interpretation Comments UA Leuk Est (test code Trace *ABN*(08/23/18 5:00 = UA Leuk Est) AM) [facility] AND [id number] 10:00:00 Test Item Value Reference Range Interpretation Comments UA Spec Grav (test code = UA Spec 1.016 1 Grav) [facility] AND [id number] 10:00:00 Test Item Value Reference Range Interpretation Comments UA pH (test code = UA pH) 5.0 1 5.0-8.0 [facility] AND [id number] 10:00:00 Test Item Value Reference Range Interpretation Comments UA Protein (test code Negative (08/23/18 5:00 = UA Protein) AM) [facility] AND [id number] 10:00:00 Test Item Value Reference Range Interpretation Comments UA Ketones (test code Negative *NA*(08/23/18 = UA Ketones) 5:00 AM) [facility] AND [id number] 10:00:00 Test Item Value Reference Range Interpretation Comments UA Bili (test code = Negative *NA*(08/23/18 UA Bili) 5:00 AM) [facility] AND [id number] 10:00:00 Test Item Value Reference Range Interpretation Comments UA Blood (test code = Negative (08/23/18 5:00 UA Blood) AM) [facility] AND [id number] 10:00:00 Test Item Value Reference Range Interpretation Comments UA Urobilinogen (test code = UA <=1.0 mg/dL 0.1-1.0 Urobilinogen) [facility] AND [id number] 10:00:00 Test Item Value Reference Range Interpretation Comments UA Glucose (test code Negative *NA*(08/23/18 = UA Glucose) 5:00 AM) [facility] [id number] 10:00:00 Test Item Value Reference Range Interpretation Comments UA Bacteria (test code = UA Few /HPF Bacteria) [facility] AND [id number] 10:00:00 Test Item Value Reference Range Interpretation Comments UA Sq Epi (test code = UA Sq Epi) Many /LPF [facility] AND [id number] 10:00:00 Test Item Value Reference Range Interpretation Comments UA WBC (test code = 2 See_Comment [Automa kenroy message] The UA WBC) system which ge nerated this result transmit kenroy reference range : <=5. The reference range was not used to interpr et this result as elton l/abnormal. [facility] AND [id number] 10:00:00 Test Item Value Reference Range Interpretation Comments UA RBC (test code = 1 See_Comment [Automa kenroy message] The UA RBC) system which ge nerated this result transmit kenroy reference range : <=2. The reference range was not used to interpr et this result as elton l/abnormal. [facility] AND [id number] 10:00:00 Test Item Value Reference Range Interpretation Comments UA Hyal Cast (test 3 See_Comment [Automat ed message] The code = UA Hyal Cast) system which generated this result transmit kenroy reference range : <=2. The reference range was not used to interpr et this result as elton l/abnormal. [facility] AND [id number] 10:00:00 Test Item Value Reference Range Interpretation Comments UA Mucus (test code = UA Mucus) Few /LPF [facility] AND [id number] 10:00:00 Test Item Value Reference Range Interpretation Comments UA Amorph Liat (test code = Occasional /HPF UA Amorph Liat) [facility] AND [id number] 10:00:00 Test Item Value Reference Range Interpretation Comments UA Color (test code = Yellow *NA*(08/23/18 5:00 UA Color) AM) [facility] AND [id number] 10:00:00 Test Item Value Reference Range Interpretation Comments UA Turbidity (test code Slight *ABN*(08/23/18 = UA Turbidity) 5:00 AM) [facility] AND [id number] 10:00:00 Test Item Value Reference Range Interpretation Comments UA Nitrite (test code Negative (08/23/18 5:00 = UA Nitrite) AM) [facility] AND [id number] 10:00:00 Test Item Value Reference Range Interpretation Comments UA Leuk Est (test code Trace *ABN*(08/23/18 5:00 = UA Leuk Est) AM) [facility] AND [id number] 10:00:00 Test Item Value Reference Range Interpretation Comments UA Spec Grav (test code = UA Spec 1.016 1 Grav) [facility] AND [id number] 10:00:00 Test Item Value Reference Range Interpretation Comments UA pH (test code = UA pH) 5.0 1 5.0-8.0 [facility] AND [id number] 10:00:00 Test Item Value Reference Range Interpretation Comments UA Protein (test code Negative (08/23/18 5:00 = UA Protein) AM) [facility] AND [id number] 10:00:00 Test Item Value Reference Range Interpretation Comments UA Ketones (test code Negative *NA*(08/23/18 = UA Ketones) 5:00 AM) [facility] AND [id number] 10:00:00 Test Item Value Reference Range Interpretation Comments UA Bili (test code = Negative *NA*(08/23/18 UA Bili) 5:00 AM) [facility] AND [id number] 10:00:00 Test Item Value Reference Range Interpretation Comments UA Blood (test code = Negative (08/23/18 5:00 UA Blood) AM) [facility] AND [id number] 10:00:00 Test Item Value Reference Range Interpretation Comments UA Urobilinogen (test code = UA <=1.0 mg/dL 0.1-1.0 Urobilinogen) [facility] AND [id number] 10:00:00 Test Item Value Reference Range Interpretation Comments UA Glucose (test code Negative *NA*(08/23/18 = UA Glucose) 5:00 AM) [facility] AND [id number] 10:00:00 Test Item Value Reference Range Interpretation Comments UA Bacteria (test code = UA Few /HPF Bacteria) [facility] [id number] 10:00:00 Test Item Value Reference Range Interpretation Comments UA Sq Epi (test code = UA Sq Epi) Many /LPF [facility] AND [id number] 10:00:00 Test Item Value Reference Range Interpretation Comments UA WBC (test code = 2 See_Comment [Automa kenroy message] The UA WBC) system which ge nerated this result transmit kenroy reference range : <=5. The reference range was not used to interpr et this result as elton l/abnormal. [facility] AND [id number] 10:00:00 Test Item Value Reference Range Interpretation Comments UA RBC (test code = 1 See_Comment [Automa kenroy message] The UA RBC) system which ge nerated this result transmit kenroy reference range : <=2. The reference range was not used to interpr et this result as elton l/abnormal. [facility] AND [id number] 10:00:00 Test Item Value Reference Range Interpretation Comments UA Hyal Cast (test 3 See_Comment [Automat ed message] The code = UA Hyal Cast) system which generated this result transmit kenroy reference range : <=2. The reference range was not used to interpr et this result as elton l/abnormal. [facility] AND [id number] 10:00:00 Test Item Value Reference Range Interpretation Comments UA Mucus (test code = UA Mucus) Few /LPF [facility] AND [id number] 10:00:00 Test Item Value Reference Range Interpretation Comments UA Amorph Liat (test code = Occasional /HPF UA Amorph Liat) [facility] AND [id number] 10:00:00 Test Item Value Reference Range Interpretation Comments UA Color (test code = Yellow *NA*(08/23/18 5:00 UA Color) AM) [facility] AND [id number] 10:00:00 Test Item Value Reference Range Interpretation Comments UA Turbidity (test code Slight *ABN*(08/23/18 = UA Turbidity) 5:00 AM) [facility] AND [id number] 10:00:00 Test Item Value Reference Range Interpretation Comments UA Nitrite (test code Negative (08/23/18 5:00 = UA Nitrite) AM) [facility] AND [id number] 10:00:00 Test Item Value Reference Range Interpretation Comments UA Leuk Est (test code Trace *ABN*(08/23/18 5:00 = UA Leuk Est) AM) [facility] AND [id number] 10:00:00 Test Item Value Reference Range Interpretation Comments UA Spec Grav (test code = UA Spec 1.016 1 Grav) [facility] AND [id number] 10:00:00 Test Item Value Reference Range Interpretation Comments UA pH (test code = UA pH) 5.0 1 5.0-8.0 [facility] AND [id number] 10:00:00 Test Item Value Reference Range Interpretation Comments UA Protein (test code Negative (08/23/18 5:00 = UA Protein) AM) [facility] AND [id number] 10:00:00 Test Item Value Reference Range Interpretation Comments UA Ketones (test code Negative *NA*(08/23/18 = UA Ketones) 5:00 AM) [facility] AND [id number] 10:00:00 Test Item Value Reference Range Interpretation Comments UA Bili (test code = Negative *NA*(08/23/18 UA Bili) 5:00 AM) [facility] AND [id number] 10:00:00 Test Item Value Reference Range Interpretation Comments UA Blood (test code = Negative (08/23/18 5:00 UA Blood) AM) [facility] AND [id number] 10:00:00 Test Item Value Reference Range Interpretation Comments UA Urobilinogen (test code = UA <=1.0 mg/dL 0.1-1.0 Urobilinogen) [facility] AND [id number] 10:00:00 Test Item Value Reference Range Interpretation Comments UA Glucose (test code Negative *NA*(08/23/18 = UA Glucose) 5:00 AM) [facility] AND [id number] 10:00:00 Test Item Value Reference Range Interpretation Comments UA Bacteria (test code = UA Few /HPF Bacteria) [facility] AND [id number] 10:00:00 Test Item Value Reference Range Interpretation Comments UA Sq Epi (test code = UA Sq Epi) Many /LPF [facility] AND [id number] 10:00:00 Test Item Value Reference Range Interpretation Comments UA WBC (test code = 2 See_Comment [Automa kenroy message] The UA WBC) system which ge nerated this result transmit kenroy reference range : <=5. The reference range was not used to interpr et this result as elton l/abnormal. [facility] AND [id number] 10:00:00 Test Item Value Reference Range Interpretation Comments UA RBC (test code = 1 See_Comment [Automa kenroy message] The UA RBC) system which ge nerated this result transmit kenroy reference range : <=2. The reference range was not used to interpr et this result as elton l/abnormal. [facility] AND [id number] 10:00:00 Test Item Value Reference Range Interpretation Comments UA Hyal Cast (test 3 See_Comment [Automat ed message] The code = UA Hyal Cast) system which generated this result transmit kenroy reference range : <=2. The reference range was not used to interpr et this result as elton l/abnormal. [facility] AND [id number] 10:00:00 Test Item Value Reference Range Interpretation Comments UA Mucus (test code = UA Mucus) Few /LPF [facility] AND [id number] 10:00:00 Test Item Value Reference Range Interpretation Comments UA Amorph Liat (test code = Occasional /HPF UA Amorph Liat) [facility] AND [id number] 10:00:00 Test Item Value Reference Range Interpretation Comments UA Color (test code = Yellow *NA*(08/23/18 5:00 UA Color) AM) [facility] AND [id number] 10:00:00 Test Item Value Reference Range Interpretation Comments UA Turbidity (test code Slight *ABN*(08/23/18 = UA Turbidity) 5:00 AM) [facility] AND [id number] 10:00:00 Test Item Value Reference Range Interpretation Comments UA Nitrite (test code Negative (08/23/18 5:00 = UA Nitrite) AM) [facility] AND [id number] 10:00:00 Test Item Value Reference Range Interpretation Comments UA Leuk Est (test code Trace *ABN*(08/23/18 5:00 = UA Leuk Est) AM) [facility] AND [id number] 10:00:00 Test Item Value Reference Range Interpretation Comments UA Spec Grav (test code = UA Spec 1.016 1 Grav) [facility] AND [id number] 10:00:00 Test Item Value Reference Range Interpretation Comments UA pH (test code = UA pH) 5.0 1 5.0-8.0 [facility] AND [id number] 10:00:00 Test Item Value Reference Range Interpretation Comments UA Protein (test code Negative (08/23/18 5:00 = UA Protein) AM) [facility] AND [id number] 10:00:00 Test Item Value Reference Range Interpretation Comments UA Ketones (test code Negative *NA*(08/23/18 = UA Ketones) 5:00 AM) [facility] AND [id number] 10:00:00 Test Item Value Reference Range Interpretation Comments UA Bili (test code = Negative *NA*(08/23/18 UA Bili) 5:00 AM) [facility] AND [id number] 10:00:00 Test Item Value Reference Range Interpretation Comments UA Blood (test code = Negative (08/23/18 5:00 UA Blood) AM) [facility] AND [id number] 10:00:00 Test Item Value Reference Range Interpretation Comments UA Urobilinogen (test code = UA <=1.0 mg/dL 0.1-1.0 Urobilinogen) [facility] AND [id number] 10:00:00 Test Item Value Reference Range Interpretation Comments UA Glucose (test code Negative *NA*(08/23/18 = UA Glucose) 5:00 AM) [facility] AND [id number] 10:00:00 Test Item Value Reference Range Interpretation Comments UA Bacteria (test code = UA Few /HPF Bacteria) [facility] AND [id number] 10:00:00 Test Item Value Reference Range Interpretation Comments UA Sq Epi (test code = UA Sq Epi) Many /LPF [facility] AND [id number] 10:00:00 Test Item Value Reference Range Interpretation Comments UA WBC (test code = 2 See_Comment [Automa kenroy message] The UA WBC) system which ge nerated this result transmit kenroy reference range : <=5. The reference range was not used to interpr et this result as elton l/abnormal. [facility] AND [id number] 10:00:00 Test Item Value Reference Range Interpretation Comments UA RBC (test code = 1 See_Comment [Automa kenroy message] The UA RBC) system which ge nerated this result transmit kenroy reference range : <=2. The reference range was not used to interpr et this result as elton l/abnormal. [facility] AND [id number] 10:00:00 Test Item Value Reference Range Interpretation Comments UA Hyal Cast (test 3 See_Comment [Automat ed message] The code = UA Hyal Cast) system which generated this result transmit kenroy reference range : <=2. The reference range was not used to interpr et this result as elton l/abnormal. [facility] AND [id number] 10:00:00 Test Item Value Reference Range Interpretation Comments UA Mucus (test code = UA Mucus) Few /LPF [facility] AND [id number] 10:00:00 Test Item Value Reference Range Interpretation Comments UA Amorph Liat (test code = Occasional /HPF UA Amorph Liat) [facility] AND [id number] 10:00:00 Test Item Value Reference Range Interpretation Comments UA Color (test code = Yellow *NA*(08/23/18 5:00 UA Color) AM) [facility] AND [id number] 10:00:00 Test Item Value Reference Range Interpretation Comments UA Turbidity (test code Slight *ABN*(08/23/18 = UA Turbidity) 5:00 AM) [facility] AND [id number] 10:00:00 Test Item Value Reference Range Interpretation Comments UA Nitrite (test code Negative (08/23/18 5:00 = UA Nitrite) AM) [facility] AND [id number] 10:00:00 Test Item Value Reference Range Interpretation Comments UA Leuk Est (test code Trace *ABN*(08/23/18 5:00 = UA Leuk Est) AM) [facility] AND [id number] 10:00:00 Test Item Value Reference Range Interpretation Comments UA Spec Grav (test code = UA Spec 1.016 1 Grav) [facility] AND [id number] 10:00:00 Test Item Value Reference Range Interpretation Comments UA pH (test code = UA pH) 5.0 1 5.0-8.0 [facility] AND [id number] 10:00:00 Test Item Value Reference Range Interpretation Comments UA Protein (test code Negative (08/23/18 5:00 = UA Protein) AM) [facility] AND [id number] 10:00:00 Test Item Value Reference Range Interpretation Comments UA Ketones (test code Negative *NA*(08/23/18 = UA Ketones) 5:00 AM) [facility] AND [id number] 10:00:00 Test Item Value Reference Range Interpretation Comments UA Bili (test code = Negative *NA*(08/23/18 UA Bili) 5:00 AM) [facility] AND [id number] 10:00:00 Test Item Value Reference Range Interpretation Comments UA Blood (test code = Negative (08/23/18 5:00 UA Blood) AM) [facility] AND [id number] 10:00:00 Test Item Value Reference Range Interpretation Comments UA Urobilinogen (test code = UA <=1.0 mg/dL 0.1-1.0 Urobilinogen) [facility] AND [id number] 10:00:00 Test Item Value Reference Range Interpretation Comments UA Glucose (test code Negative *NA*(08/23/18 = UA Glucose) 5:00 AM) [facility] AND [id number] 10:00:00 Test Item Value Reference Range Interpretation Comments UA Bacteria (test code = UA Few /HPF Bacteria) [facility] AND [id number] 10:00:00 Test Item Value Reference Range Interpretation Comments UA Sq Epi (test code = UA Sq Epi) Many /LPF [facility] AND [id number] 10:00:00 Test Item Value Reference Range Interpretation Comments UA WBC (test code = 2 See_Comment [Automa kenroy message] The UA WBC) system which ge nerated this result transmit kenroy reference range : <=5. The reference range was not used to interpr et this result as elton l/abnormal. [facility] AND [id number] 10:00:00 Test Item Value Reference Range Interpretation Comments UA RBC (test code = 1 See_Comment [Automa kenroy message] The UA RBC) system which ge nerated this result transmit kenroy reference range : <=2. The reference range was not used to interpr et this result as elton l/abnormal. [facility] AND [id number] 10:00:00 Test Item Value Reference Range Interpretation Comments UA Hyal Cast (test 3 See_Comment [Automat ed message] The code = UA Hyal Cast) system which generated this result transmit kenroy reference range : <=2. The reference range was not used to interpr et this result as elton l/abnormal. [facility] AND [id number] 10:00:00 Test Item Value Reference Range Interpretation Comments UA Mucus (test code = UA Mucus) Few /LPF [facility] AND [id number] 10:00:00 Test Item Value Reference Range Interpretation Comments UA Amorph Liat (test code = Occasional /HPF UA Amorph Liat) [facility] AND [id number] 10:00:00 Test Item Value Reference Range Interpretation Comments UA Color (test code = Yellow *NA*(08/23/18 5:00 UA Color) AM) [facility] AND [id number] 10:00:00 Test Item Value Reference Range Interpretation Comments UA Turbidity (test code Slight *ABN*(08/23/18 = UA Turbidity) 5:00 AM) [facility] AND [id number] 10:00:00 Test Item Value Reference Range Interpretation Comments UA Nitrite (test code Negative (08/23/18 5:00 = UA Nitrite) AM) [facility] AND [id number] 10:00:00 Test Item Value Reference Range Interpretation Comments UA Leuk Est (test code Trace *ABN*(08/23/18 5:00 = UA Leuk Est) AM) [facility] AND [id number] 10:00:00 Test Item Value Reference Range Interpretation Comments UA Spec Grav (test code = UA Spec 1.016 1 Grav) [facility] AND [id number] 10:00:00 Test Item Value Reference Range Interpretation Comments UA pH (test code = UA pH) 5.0 1 5.0-8.0 [facility] AND [id number] 10:00:00 Test Item Value Reference Range Interpretation Comments UA Protein (test code Negative (08/23/18 5:00 = UA Protein) AM) [facility] AND [id number] 10:00:00 Test Item Value Reference Range Interpretation Comments UA Ketones (test code Negative *NA*(08/23/18 = UA Ketones) 5:00 AM) [facility] AND [id number] 10:00:00 Test Item Value Reference Range Interpretation Comments UA Bili (test code = Negative *NA*(08/23/18 UA Bili) 5:00 AM) [facility] AND [id number] 10:00:00 Test Item Value Reference Range Interpretation Comments UA Blood (test code = Negative (08/23/18 5:00 UA Blood) AM) [facility] AND [id number] 10:00:00 Test Item Value Reference Range Interpretation Comments UA Urobilinogen (test code = UA <=1.0 mg/dL 0.1-1.0 Urobilinogen) [facility] AND [id number] 10:00:00 Test Item Value Reference Range Interpretation Comments UA Glucose (test code Negative *NA*(08/23/18 = UA Glucose) 5:00 AM) [facility]ARD[facility] [id number] 23:05:00 Test Item Value Reference Range Interpretation Comments Total CK (test code = Total CK) 29 12-191 [facility] [id number] 23:05:00 Test Item Value Reference Range Interpretation Comments Troponin-I (test code no gt See_Comment [Auto mated message] The = Troponin-I) system which g enerated this result transmit kenroy reference range : <=0.40. The reference r alee was not used to interpr et this result as elton l/abnormal. [facility]annCARDIAC [id number] 23:05:00 Test Item Value Reference Range Interpretation Comments BNP (test code = BNP) 73 [facility]annCHEM [id number] 23:05:00 Test Item Value Reference Range Interpretation Comments eGFR (test code = eGFR) 92 [facility]2019-06-03 23:05:00 Test Item Value Reference Range Interpretation Comments Bili Total (test code = Bili Total) 0.2 0.2-1.3 [facility]2019-06-03 23:05:00 Test Item Value Reference Range Interpretation Comments Albumin Lvl (test code = Albumin Lvl) 3.0 3.5-5.0 [facility]2019-06-03 23:05:00 Test Item Value Reference Range Interpretation Comments Total Protein (test code = Total 7.4 6.4-8.4 Protein) [facility]2019-06-03 23:05:00 Test Item Value Reference Range Interpretation Comments Calcium Lvl (test code = Calcium Lvl) 9.2 8.5-10.5 [facility]2019-06-03 23:05:00 Test Item Value Reference Range Interpretation Comments Alk Phos (test code = Alk Phos) 93 39-136 [facility]2019-06-03 23:05:00 Test Item Value Reference Range Interpretation Comments AST (test code = AST) 9 See_Comment [Auto mated message] The system which ge nerated this result transmit kenroy reference range : <=37. The reference range was not used to interpr et this result as elton l/abnormal. [facility]2019-06-03 23:05:00 Test Item Value Reference Range Interpretation Comments ALT (test code = ALT) 19 See_Comment [Auto mated message] The system which ge nerated this result transmit kenroy reference range : <=65. The reference range was not used to interpr et this result as elton l/abnormal. [facility]2019-06-03 23:05:00 Test Item Value Reference Range Interpretation Comments CO2 (test code = CO2) 30 24-32 [facility]2019-06-03 23:05:00 Test Item Value Reference Range Interpretation Comments Chloride Lvl (test code = Chloride Lvl) 101 95-109 [facility]2019-06-03 23:05:00 Test Item Value Reference Range Interpretation Comments Sodium Lvl (test code = Sodium Lvl) 136 135-145 [facility]2019-06-03 23:05:00 Test Item Value Reference Range Interpretation Comments Creatinine Lvl (test code = Creatinine 0.81 0.50-1.40 Lvl) [facility]2019-06-03 23:05:00 Test Item Value Reference Range Interpretation Comments BUN (test code = BUN) 12 7-22 [facility]2019-06-03 23:05:00 Test Item Value Reference Range Interpretation Comments Glucose Lvl (test code = Glucose Lvl) 89 70-99 [facility]2019-06-03 23:05:00 Test Item Value Reference Range Interpretation Comments Potassium Lvl (test code = Potassium 4.1 3.5-5.1 Lvl) [facility]2019-06-03 23:05:00 Test Item Value Reference Range Interpretation Comments AGAP (test code = AGAP) 9.1 10.0-20.0 [facility]2019-06-03 23:05:00 Test Item Value Reference Range Interpretation Comments B/C Ratio (test code = B/C Ratio) 15 1 6-25 [facility]2019-06-03 23:05:00 Test Item Value Reference Range Interpretation Comments A/G Ratio (test code = A/G Ratio) 0.7 1 0.7-1.6 [facility]2019-06-03 23:05:00 Test Item Value Reference Range Interpretation Comments Globulin (test code = Globulin) 4.4 2.7-4.2 [facility]2019-06-03 23:05:00 Test Item Value Reference Range Interpretation Comments Magnesium Lvl (test code = Magnesium 1.9 1.8-2.4 Lvl) [facility]2019-06-03 23:05:00 Test Item Value Reference Range Interpretation Comments Phosphorus (test code = Phosphorus) 3.3 2.5-4.5 [id number] 23:05:00 Test Item Value Reference Range Interpretation Comments S Preg (test code = S Negative *NA*(08/22/18 Preg) 6:05 PM) [id number] 23:05:00 Test Item Value Reference Range Interpretation Comments RDW (test code = RDW) 17.9 11.5-14.5 [facility] [id number] 23:05:00 Test Item Value Reference Range Interpretation Comments Platelet (test code = Platelet) 320 133-450 [facility] [id number] 23:05:00 Test Item Value Reference Range Interpretation Comments RBC (test code = RBC) 4.24 4.20-5.40 [facility] [id number] 23:05:00 Test Item Value Reference Range Interpretation Comments Hgb (test code = Hgb) 9.2 12.0-16.0 [facility] [id number] 23:05:00 Test Item Value Reference Range Interpretation Comments MCHC (test code = MCHC) 31.6 32.0-36.0 [facility] [id number] 23:05:00 Test Item Value Reference Range Interpretation Comments MPV (test code = MPV) 7.4 7.4-10.4 [facility] [id number] 23:05:00 Test Item Value Reference Range Interpretation Comments Hct (test code = Hct) 29.1 36.0-48.0 [facility] Cent[id number] 23:05:00 Test Item Value Reference Range Interpretation Comments MCV (test code = MCV) 68.6 80.0-98.0 [facility] [id number] 23:05:00 Test Item Value Reference Range Interpretation Comments MCH (test code = MCH) 21.7 pg 27.0-31.0 [facility] CenterPhxgjnyGIBCHDRUAW2656-93-09 23:05:00 Test Item Value Reference Range Interpretation Comments WBC (test code = WBC) 6.8 3.7-10.4 [facility] C[id number] 23:05:00 Test Item Value Reference Range Interpretation Comments INR (test code = INR) 0.91 1 0.85-1.17 [facility] [id number] 23:05:00 Test Item Value Reference Range Interpretation Comments PT (test code = PT) 12.1 s 12.0-14.7 [facility] CenterQizwkxhZCVPEPXEUP2240-43-39 23:05:00 Test Item Value Reference Range Interpretation Comments PTT (test code = PTT) 26.3 s 22.9-35.8 [facility] Cent[id number] 23:05:00 Test Item Value Reference Range Interpretation Comments Eosinophils # (test code 0.2 See_Comment [A utomated message] The = Eosinophils #) system [facility] h generated this result tra nsmitted reference range : <=0.5. The reference r alee was not used to int erpret this result as normal/abnormal . [facility] CenterAokosqjTJZVWCIYYV7331-03-68 23:05:00 Test Item Value Reference Range Interpretation Comments Microcyte (test code = 3+ *NA*(08/22/18 6:05 Microcyte) PM) [facility] [id number] 23:05:00 Test Item Value Reference Range Interpretation Comments Monocytes (test code = Monocytes) 8.5 2.0-12.0 [facility] C[id number] 23:05:00 Test Item Value Reference Range Interpretation Comments Lymphocytes (test code = Lymphocytes) 34.3 20.0-40.0 [facility] C[id number] 23:05:00 Test Item Value Reference Range Interpretation Comments Eosinophils (test code = 3.1 See_Comment [A utomated message] The Eosinophils) system which ge nerated this result tra nsmitted reference range : <=4.0. The reference r alee was not used to int erpret this result as normal/abnormal . [facility] CenterRccdvfzTYZKLARGZB0690-00-49 23:05:00 Test Item Value Reference Range Interpretation Comments Basophils (test code = 0.6 See_Comment [Aut omated message] The Basophils) system which ge nerated this result tra nsmitted reference range : <=1.0. The reference r alee was not used to int erpret this result as normal/abnormal . [facility] [id number] 23:05:00 Test Item Value Reference Range Interpretation Comments Lymphocytes # (test code = Lymphocytes 2.3 1.0-5.5 #) [facility] Cent[id number] 23:05:00 Test Item Value Reference Range Interpretation Comments Monocytes # (test code 0.6 See_Comment [Aut omated message] The = Monocytes #) system which generated this result tra nsmitted reference range : <=0.8. The reference r alee was not used to int erpret this result as normal/abnormal . [facility] CenterTykxwedXIQYKKXPCZ2151-09-60 23:05:00 Test Item Value Reference Range Interpretation Comments Neutrophils # (test code = Neutrophils 3.7 1.5-8.1 #) [id number] 23:05:00 Test Item Value Reference Range Interpretation Comments Segs (test code = Segs) 53.5 45.0-75.0 [facility] AND [id number] 23:05:00 Test Item Value Reference Range Interpretation Comments UA WBC (test code = 2 See_Comment [Automa kenroy message] The UA WBC) system which ge nerated this result transmit kenroy reference range : <=5. The reference range was not used to interpr et this result as elton l/abnormal. [facility] AND [id number] 23:05:00 Test Item Value Reference Range Interpretation Comments UA RBC (test code = 1 See_Comment [Automa kenroy message] The UA RBC) system which ge nerated this result transmit kenroy reference range : <=2. The reference range was not used to interpr et this result as elton l/abnormal. [facility] AND [id number] 23:05:00 Test Item Value Reference Range Interpretation Comments UA Bili (test code = Negative *NA*(08/22/18 UA Bili) 6:05 PM) [facility] AND [id number] 23:05:00 Test Item Value Reference Range Interpretation Comments UA Ketones (test code Negative *NA*(08/22/18 = UA Ketones) 6:05 PM) [facility] AND [id number] 23:05:00 Test Item Value Reference Range Interpretation Comments UA Glucose (test code Negative *NA*(08/22/18 = UA Glucose) 6:05 PM) [facility] AND [id number] 23:05:00 Test Item Value Reference Range Interpretation Comments UA Leuk Est (test Negative (08/22/18 6:05 code = UA Leuk Est) PM) [facility] AND [id number] 23:05:00 Test Item Value Reference Range Interpretation Comments UA Sq Epi (test code = UA Sq Epi) Many /LPF [facility] AND [id number] 23:05:00 Test Item Value Reference Range Interpretation Comments UA Hyal Cast (test 1 See_Comment [Automat ed message] The code = UA Hyal Cast) system which generated this result transmit kenroy reference range : <=2. The reference range was not used to interpr et this result as elton l/abnormal. [facility] AND [id number] 23:05:00 Test Item Value Reference Range Interpretation Comments UA Bacteria (test code = None Seen (08/22/18 UA Bacteria) 6:05 PM) [facility] AND [id number] 23:05:00 Test Item Value Reference Range Interpretation Comments UA Mucus (test code = UA Mucus) Few /LPF [facility] AND [id number] 23:05:00 Test Item Value Reference Range Interpretation Comments UA Blood (test code = Negative (08/22/18 6:05 UA Blood) PM) [facility] AND [id number] 23:05:00 Test Item Value Reference Range Interpretation Comments UA Urobilinogen (test code = UA <=1.0 mg/dL 0.1-1.0 Urobilinogen) [facility] AND [id number] 23:05:00 Test Item Value Reference Range Interpretation Comments UA Nitrite (test code Negative (08/22/18 6:05 = UA Nitrite) PM) [facility] AND [id number] 23:05:00 Test Item Value Reference Range Interpretation Comments UA Color (test code = Yellow *NA*(08/22/18 6:05 UA Color) PM) [facility] AND [id number] 23:05:00 Test Item Value Reference Range Interpretation Comments UA Protein (test code Negative (08/22/18 6:05 = UA Protein) PM) [facility] AND [id number] 23:05:00 Test Item Value Reference Range Interpretation Comments UA pH (test code = UA pH) 6.0 1 5.0-8.0 [facility] AND [id number] 23:05:00 Test Item Value Reference Range Interpretation Comments UA Spec Grav (test code = UA Spec 1.017 1 Grav) [facility] AND [id number] 23:05:00 Test Item Value Reference Range Interpretation Comments UA Turbidity (test code = Clear (08/22/18 6:05 UA Turbidity) PM) [facility]annCARD[facility]AC [id number] 23:05:00 Test Item Value Reference Range Interpretation Comments Total CK (test code = Total CK) 29 12-191 [facility] CenterParkerVision [id number] 23:05:00 Test Item Value Reference Range Interpretation Comments Troponin-I (test code no gt See_Comment [Auto mated message] The = Troponin-I) system which g enerated this result transmit kenroy reference range : <=0.40. The reference r alee was not used to interpr et this result as elton l/abnormal. [facility] [employer] [id number] 23:05:00 Test Item Value Reference Range Interpretation Comments BNP (test code = BNP) 73 [facility] [employer] [id number] 23:05:00 Test Item Value Reference Range Interpretation Comments eGFR (test code = eGFR) 92 [facility] [facility] [employer] [id number] 23:05:00 Test Item Value Reference Range Interpretation Comments Bili Total (test code = Bili Total) 0.2 0.2-1.3 [facility] [employer] [id number] 23:05:00 Test Item Value Reference Range Interpretation Comments Albumin Lvl (test code = Albumin Lvl) 3.0 3.5-5.0 [facility] [employer] [id number] 23:05:00 Test Item Value Reference Range Interpretation Comments Total Protein (test code = Total 7.4 6.4-8.4 Protein) [facility] [employer] [id number] 23:05:00 Test Item Value Reference Range Interpretation Comments Calcium Lvl (test code = Calcium Lvl) 9.2 8.5-10.5 [facility] [employer] [id number] 23:05:00 Test Item Value Reference Range Interpretation Comments Alk Phos (test code = Alk Phos) 93 39-136 [facility] [employer] [id number] 23:05:00 Test Item Value Reference Range Interpretation Comments AST (test code = AST) 9 See_Comment [Auto mated message] The system which ge nerated this result transmit kenroy reference range : <=37. The reference range was not used to interpr et this result as elton l/abnormal. [employer] [id number] 23:05:00 Test Item Value Reference Range Interpretation Comments ALT (test code = ALT) 19 See_Comment [Auto mated message] The system which ge nerated this result transmit kenroy reference range : <=65. The reference range was not used to interpr et this result as elton l/abnormal. [facility]2019-06-03 23:05:00 Test Item Value Reference Range Interpretation Comments CO2 (test code = CO2) 30 24-32 [facility]2019-06-03 23:05:00 Test Item Value Reference Range Interpretation Comments Chloride Lvl (test code = Chloride Lvl) 101 95-109 [facility]2019-06-03 23:05:00 Test Item Value Reference Range Interpretation Comments Sodium Lvl (test code = Sodium Lvl) 136 135-145 [facility]2019-06-03 23:05:00 Test Item Value Reference Range Interpretation Comments Creatinine Lvl (test code = Creatinine 0.81 0.50-1.40 Lvl) [facility]2019-06-03 23:05:00 Test Item Value Reference Range Interpretation Comments BUN (test code = BUN) 12 7-22 [facility]2019-06-03 23:05:00 Test Item Value Reference Range Interpretation Comments Glucose Lvl (test code = Glucose Lvl) 89 70-99 [facility]2019-06-03 23:05:00 Test Item Value Reference Range Interpretation Comments Potassium Lvl (test code = Potassium 4.1 3.5-5.1 Lvl) [facility]2019-06-03 23:05:00 Test Item Value Reference Range Interpretation Comments AGAP (test code = AGAP) 9.1 10.0-20.0 [facility]2019-06-03 23:05:00 Test Item Value Reference Range Interpretation Comments B/C Ratio (test code = B/C Ratio) 15 1 6-25 [facility]2019-06-03 23:05:00 Test Item Value Reference Range Interpretation Comments A/G Ratio (test code = A/G Ratio) 0.7 1 0.7-1.6 [facility]2019-06-03 23:05:00 Test Item Value Reference Range Interpretation Comments Globulin (test code = Globulin) 4.4 2.7-4.2 [facility]2019-06-03 23:05:00 Test Item Value Reference Range Interpretation Comments Magnesium Lvl (test code = Magnesium 1.9 1.8-2.4 Lvl) [facility] [id number] 23:05:00 Test Item Value Reference Range Interpretation Comments Phosphorus (test code = Phosphorus) 3.3 2.5-4.5 [id number] 23:05:00 Test Item Value Reference Range Interpretation Comments S Preg (test code = S Negative *NA*(08/22/18 Preg) 6:05 PM) [facility]ibLPWCGFUUQR5131-85-66 23:05:00 Test Item Value Reference Range Interpretation Comments RDW (test code = RDW) 17.9 11.5-14.5 [facility] CenterCmiaipgEMLJXRYOQC6763-47-00 23:05:00 Test Item Value Reference Range Interpretation Comments Platelet (test code = Platelet) 320 133-450 [facility] CenterBsayrzxXXWHLKODKG3376-65-16 23:05:00 Test Item Value Reference Range Interpretation Comments RBC (test code = RBC) 4.24 4.20-5.40 [facility] CenterXlojkwfGRVMJDYFQJ6955-31-14 23:05:00 Test Item Value Reference Range Interpretation Comments Hgb (test code = Hgb) 9.2 12.0-16.0 [facility] CenterKjcvgivHDVXUJALFX1901-71-01 23:05:00 Test Item Value Reference Range Interpretation Comments MCHC (test code = MCHC) 31.6 32.0-36.0 [facility] Cent[id number] 23:05:00 Test Item Value Reference Range Interpretation Comments MPV (test code = MPV) 7.4 7.4-10.4 [facility] CenterOmambfbGBNPUMIBKG3334-81-40 23:05:00 Test Item Value Reference Range Interpretation Comments Hct (test code = Hct) 29.1 36.0-48.0 [facility] CenterSvgzncbAITGDGPWPS2428-31-24 23:05:00 Test Item Value Reference Range Interpretation Comments MCV (test code = MCV) 68.6 80.0-98.0 [facility] CenterAhvrglzAMRHNZMQVN5343-03-93 23:05:00 Test Item Value Reference Range Interpretation Comments MCH (test code = MCH) 21.7 pg 27.0-31.0 [facility] CenterGpzgdiwTXFAFCEHXM0628-11-91 23:05:00 Test Item Value Reference Range Interpretation Comments WBC (test code = WBC) 6.8 3.7-10.4 [facility] CenterOphtaggUSMRHNZFBN2954-59-38 23:05:00 Test Item Value Reference Range Interpretation Comments INR (test code = INR) 0.91 1 0.85-1.17 [facility] CenterErizrkzYLEASIACTB9688-97-35 23:05:00 Test Item Value Reference Range Interpretation Comments PT (test code = PT) 12.1 s 12.0-14.7 [facility] CenterXwpzcfiQKSOUQWCMJ8566-66-24 23:05:00 Test Item Value Reference Range Interpretation Comments PTT (test code = PTT) 26.3 s 22.9-35.8 [facility] CenterWryhiuwGVPZNOGYDX7879-56-30 23:05:00 Test Item Value Reference Range Interpretation Comments Eosinophils # (test code 0.2 See_Comment [A utomated message] The = Eosinophils #) system whic h generated this result tra nsmitted reference range : <=0.5. The reference r alee was not used to int erpret this result as normal/abnormal . [facility] CenterQtrdvkvPPWKSWSOTF9991-02-63 23:05:00 Test Item Value Reference Range Interpretation Comments Microcyte (test code = 3+ *NA*(08/22/18 6:05 Microcyte) PM) [facility] CenterKaonpmvANQWYGLZVG3217-57-14 23:05:00 Test Item Value Reference Range Interpretation Comments Monocytes (test code = Monocytes) 8.5 2.0-12.0 [facility] CenterMfhbkhmHFDPZHPYYI1752-39-14 23:05:00 Test Item Value Reference Range Interpretation Comments Lymphocytes (test code = Lymphocytes) 34.3 20.0-40.0 [facility] CenterBfeflkkBQHDXLSOPG0363-78-03 23:05:00 Test Item Value Reference Range Interpretation Comments Eosinophils (test code = 3.1 See_Comment [A utomated message] The Eosinophils) system which ge nerated this result tra nsmitted reference range : <=4.0. The reference r alee was not used to int erpret this result as normal/abnormal . [facility] CenterHwzotgdYJWRDSFNNH9909-09-29 23:05:00 Test Item Value Reference Range Interpretation Comments Basophils (test code = 0.6 See_Comment [Aut omated message] The Basophils) system which ge nerated this result tra nsmitted reference range : <=1.0. The reference r alee was not used to int erpret this result as normal/abnormal . [id number] 23:05:00 Test Item Value Reference Range Interpretation Comments Lymphocytes # (test code = Lymphocytes 2.3 1.0-5.5 #) [facility] CenterAazumasQTHCSXWMLN4056-26-54 23:05:00 Test Item Value Reference Range Interpretation Comments Monocytes # (test code 0.6 See_Comment [Aut omated message] The = Monocytes #) system which generated this result tra nsmitted reference range : <=0.8. The reference r alee was not used to int erpret this result as normal/abnormal . [facility] CenterAwjigepPMUTKBUFLS5797-18-94 23:05:00 Test Item Value Reference Range Interpretation Comments Neutrophils # (test code = Neutrophils 3.7 1.5-8.1 #) [facility] CenterIogxmxsQPNDFSGVJC1710-38-74 23:05:00 Test Item Value Reference Range Interpretation Comments Segs (test code = Segs) 53.5 45.0-75.0 [facility]2019-06-03 23:05:00 Test Item Value Reference Range Interpretation Comments UA WBC (test code = 2 See_Comment [Automa kenroy message] The UA WBC) system which ge nerated this result transmit kenroy reference range : <=5. The reference range was not used to interpr et this result as elton l/abnormal. [facility]2019-06-03 23:05:00 Test Item Value Reference Range Interpretation Comments UA RBC (test code = 1 See_Comment [Automa kenroy message] The UA RBC) system which ge nerated this result transmit kenroy reference range : <=2. The reference range was not used to interpr et this result as elton l/abnormal. [facility]2019-06-03 23:05:00 Test Item Value Reference Range Interpretation Comments UA Bili (test code = Negative *NA*(08/22/18 UA Bili) 6:05 PM) [facility]2019-06-03 23:05:00 Test Item Value Reference Range Interpretation Comments UA Ketones (test code Negative *NA*(08/22/18 = UA Ketones) 6:05 PM) [facility]2019-06-03 23:05:00 Test Item Value Reference Range Interpretation Comments UA Glucose (test code Negative *NA*(08/22/18 = UA Glucose) 6:05 PM) [facility] AND [id number] 23:05:00 Test Item Value Reference Range Interpretation Comments UA Leuk Est (test Negative (08/22/18 6:05 code = UA Leuk Est) PM) [facility] AND [id number] 23:05:00 Test Item Value Reference Range Interpretation Comments UA Sq Epi (test code = UA Sq Epi) Many /LPF [facility] AND [id number] 23:05:00 Test Item Value Reference Range Interpretation Comments UA Hyal Cast (test 1 See_Comment [Automat ed message] The code = UA Hyal Cast) system which generated this result transmit kenroy reference range : <=2. The reference range was not used to interpr et this result as elton l/abnormal. [facility] AND [id number] 23:05:00 Test Item Value Reference Range Interpretation Comments UA Bacteria (test code = None Seen (08/22/18 UA Bacteria) 6:05 PM) [facility] AND [id number] 23:05:00 Test Item Value Reference Range Interpretation Comments UA Mucus (test code = UA Mucus) Few /LPF [facility] AND [id number] 23:05:00 Test Item Value Reference Range Interpretation Comments UA Blood (test code = Negative (08/22/18 6:05 UA Blood) PM) [facility] AND [id number] 23:05:00 Test Item Value Reference Range Interpretation Comments UA Urobilinogen (test code = UA <=1.0 mg/dL 0.1-1.0 Urobilinogen) [facility] AND [id number] 23:05:00 Test Item Value Reference Range Interpretation Comments UA Nitrite (test code Negative (08/22/18 6:05 = UA Nitrite) PM) [facility] AND [id number] 23:05:00 Test Item Value Reference Range Interpretation Comments UA Color (test code = Yellow *NA*(08/22/18 6:05 UA Color) PM) [facility] AND [id number] 23:05:00 Test Item Value Reference Range Interpretation Comments UA Protein (test code Negative (08/22/18 6:05 = [facility]A Protein) PM) [facility] [id number] 23:05:00 Test Item Value Reference Range Interpretation Comments UA pH (test code = UA pH) 6.0 1 5.0-8.0 [facility] [id number] 23:05:00 Test Item Value Reference Range Interpretation Comments UA Spec Grav (test code = UA Spec 1.017 1 Grav) [facility] [id number] 23:05:00 Test Item Value Reference Range Interpretation Comments UA Turbidity (test code = Clear (08/22/18 6:05 UA Turbidity) PM) [facility] EDUonGoannCARDIAC [id number] 23:05:00 Test Item Value Reference Range Interpretation Comments Total CK (test code = Total CK) 29 12-191 [facility] EDUonGoannCARLight HarmonicAC [id number] 23:05:00 Test Item Value Reference Range Interpretation Comments Troponin-I (test code no gt See_Comment [Auto mated message] The = Troponin-I) system which g enerated this result transmit kenroy reference range : <=0.40. The reference r alee was not used to interpr et this result as elton l/abnormal. [facility] HydrocapsuleAC [id number] 23:05:00 Test Item Value Reference Range Interpretation Comments BNP (test code = BNP) 73 [facility] [employer] [id number] 23:05:00 Test Item Value Reference Range Interpretation Comments eGFR (test code = eGFR) 92 [facility] [employer] [id number] 23:05:00 Test Item Value Reference Range Interpretation Comments Bili Total (test code = Bili Total) 0.2 0.2-1.3 [facility] [id number] 23:05:00 Test Item Value Reference Range Interpretation Comments Albumin Lvl (test code = Albumin Lvl) 3.0 3.5-5.0 [facility] [id number] 23:05:00 Test Item Value Reference Range Interpretation Comments Total Protein (test code = Total 7.4 6.4-8.4 Protein) [facility] [id number] 23:05:00 Test Item Value Reference Range Interpretation Comments Calcium Lvl (test code = Calcium Lvl) 9.2 8.5-10.5 [facility] [id number] 23:05:00 Test Item Value Reference Range Interpretation Comments Alk Phos (test code = Alk Phos) 93 39-136 [facility]2019-06-03 23:05:00 Test Item Value Reference Range Interpretation Comments AST (test code = AST) 9 See_Comment [Auto mated message] The system which ge nerated this result transmit kenroy reference range : <=37. The reference range was not used to interpr et this result as elton l/abnormal. [facility]2019-06-03 23:05:00 Test Item Value Reference Range Interpretation Comments ALT (test code = ALT) 19 See_Comment [Auto mated message] The system which ge nerated this result transmit kenroy reference range : <=65. The reference range was not used to interpr et this result as elton l/abnormal. [facility]2019-06-03 23:05:00 Test Item Value Reference Range Interpretation Comments CO2 (test code = CO2) 30 24-32 [facility]2019-06-03 23:05:00 Test Item Value Reference Range Interpretation Comments Chloride Lvl (test code = Chloride Lvl) 101 95-109 [facility]2019-06-03 23:05:00 Test Item Value Reference Range Interpretation Comments Sodium Lvl (test code = Sodium Lvl) 136 135-145 [facility]2019-06-03 23:05:00 Test Item Value Reference Range Interpretation Comments Creatinine Lvl (test code = Creatinine 0.81 0.50-1.40 Lvl) [facility]2019-06-03 23:05:00 Test Item Value Reference Range Interpretation Comments BUN (test code = BUN) 12 7-22 [facility]2019-06-03 23:05:00 Test Item Value Reference Range Interpretation Comments Glucose Lvl (test code = Glucose Lvl) 89 70-99 [facility]2019-06-03 23:05:00 Test Item Value Reference Range Interpretation Comments Potassium Lvl (test code = Potassium 4.1 3.5-5.1 Lvl) [facility]2019-06-03 23:05:00 Test Item Value Reference Range Interpretation Comments AGAP (test code = AGAP) 9.1 10.0-20.0 [facility]2019-06-03 23:05:00 Test Item Value Reference Range Interpretation Comments B/C Ratio (test code = B/C Ratio) 15 1 6-25 [facility]2019-06-03 23:05:00 Test Item Value Reference Range Interpretation Comments A/G Ratio (test code = A/G Ratio) 0.7 1 0.7-1.6 [facility]2019-06-03 23:05:00 Test Item Value Reference Range Interpretation Comments Globulin (test code = Globulin) 4.4 2.7-4.2 [facility]2019-06-03 23:05:00 Test Item Value Reference Range Interpretation Comments Magnesium Lvl (test code = Magnesium 1.9 1.8-2.4 Lvl) [facility]2019-06-03 23:05:00 Test Item Value Reference Range Interpretation Comments Phosphorus (test code = Phosphorus) 3.3 2.5-4.5 [id number] 23:05:00 Test Item Value Reference Range Interpretation Comments S Preg (test code = S Negative *NA*(08/22/18 Preg) 6:05 PM) [facility] C[id number] 23:05:00 Test Item Value Reference Range Interpretation Comments RDW (test code = RDW) 17.9 11.5-14.5 [facility] C[id number] 23:05:00 Test Item Value Reference Range Interpretation Comments Platelet (test code = Platelet) 320 133-450 [facility] CenterDcffbxsGRSBJCXVPM2787-13-23 23:05:00 Test Item Value Reference Range Interpretation Comments RBC (test code = RBC) 4.24 4.20-5.40 [facility] C[id number] 23:05:00 Test Item Value Reference Range Interpretation Comments Hgb (test code = Hgb) 9.2 12.0-16.0 [facility] CenterLylkmlgVDGOZKTIPN8235-35-50 23:05:00 Test Item Value Reference Range Interpretation Comments MCHC (test code = MCHC) 31.6 32.0-36.0 [facility] CenterInoghzwTINMMQFCEV0314-25-11 23:05:00 Test Item Value Reference Range Interpretation Comments MPV (test code = MPV) 7.4 7.4-10.4 [facility] CenterDpviqiqTFTLGUHLNC9243-26-50 23:05:00 Test Item Value Reference Range Interpretation Comments Hct (test code = Hct) 29.1 36.0-48.0 [facility] CenterKltbdpuWMULYQAJBG4087-36-70 23:05:00 Test Item Value Reference Range Interpretation Comments MCV (test code = MCV) 68.6 80.0-98.0 [facility] CenterKozxmsxFSWWRWCWCO0292-86-20 23:05:00 Test Item Value Reference Range Interpretation Comments MCH (test code = MCH) 21.7 pg 27.0-31.0 [facility] CenterXxrmbvxEEPOIDRAHU4547-90-37 23:05:00 Test Item Value Reference Range Interpretation Comments WBC (test code = WBC) 6.8 3.7-10.4 [facility] CenterDaxxuyhRRYSQQNBEE1537-60-12 23:05:00 Test Item Value Reference Range Interpretation Comments INR (test code = INR) 0.91 1 0.85-1.17 [facility] CenterJqtsijyVORYUTYTJP6749-05-20 23:05:00 Test Item Value Reference Range Interpretation Comments PT (test code = PT) 12.1 s 12.0-14.7 [facility] CenterTmviutuILEXBUXTFM4405-81-85 23:05:00 Test Item Value Reference Range Interpretation Comments PTT (test code = PTT) 26.3 s 22.9-35.8 [facility] CenterDanvbljNSMTWRYXZP5474-48-75 23:05:00 Test Item Value Reference Range Interpretation Comments Eosinophils # (test code 0.2 See_Comment [A utomated message] The = Eosinophils #) system whic h generated this result tra nsmitted reference range : <=0.5. The reference r alee was not used to int erpret this result as normal/abnormal . [facility] CenterJktaijpKVCNBEENSB7858-85-13 23:05:00 Test Item Value Reference Range Interpretation Comments Microcyte (test code = 3+ *NA*(08/22/18 6:05 Microcyte) PM) [facility] Cent[id number] 23:05:00 Test Item Value Reference Range Interpretation Comments Monocytes (test code = Monocytes) 8.5 2.0-12.0 [facility] Cent[id number] 23:05:00 Test Item Value Reference Range Interpretation Comments Lymphocytes (test code = Lymphocytes) 34.3 20.0-40.0 [facility] CenterQwfmzttQEUHDSRTNN4599-49-64 23:05:00 Test Item Value Reference Range Interpretation Comments Eosinophils (test code = 3.1 See_Comment [A utomated message] The Eosinophils) system which ge nerated this result tra nsmitted reference range : <=4.0. The reference r alee was not used to int erpret this result as normal/abnormal . [facility] CenterAnrvmxmFTTMGSRXNI2358-92-26 23:05:00 Test Item Value Reference Range Interpretation Comments Basophils (test code = 0.6 See_Comment [Aut omated message] The Basophils) system which ge nerated this result tra nsmitted reference range : <=1.0. The reference r alee was not used to int erpret this result as normal/abnormal . [facility] CenterLjhigygYRWIVDFRXQ3625-68-98 23:05:00 Test Item Value Reference Range Interpretation Comments Lymphocytes # (test code = Lymphocytes 2.3 1.0-5.5 #) [facility] CenterKxrvxtnPUIBKHAJQO6621-55-47 23:05:00 Test Item Value Reference Range Interpretation Comments Monocytes # (test code 0.6 See_Comment [Aut omated message] The = Monocytes #) system which generated this result tra nsmitted reference range : <=0.8. The reference r alee was not used to int erpret this result as normal/abnormal . [facility] CenterLdijjbiCMHLLVVAPD0200-21-30 23:05:00 Test Item Value Reference Range Interpretation Comments Neutrophils # (test code = Neutrophils 3.7 1.5-8.1 #) [facility] CenterLdaytpiFZYMAABJIU8609-66-92 23:05:00 Test Item Value Reference Range Interpretation Comments Segs (test code = Segs) 53.5 45.0-75.0 [facility]2019-06-03 23:05:00 Test Item Value Reference Range Interpretation Comments UA WBC (test code = 2 See_Comment [Automa kenroy message] The UA WBC) system which ge nerated this result transmit kenroy reference range : <=5. The reference range was not used to interpr et this result as elton l/abnormal. [facility]2019-06-03 23:05:00 Test Item Value Reference Range Interpretation Comments UA RBC (test code = 1 See_Comment [Automa kenroy message] The UA RBC) system which ge nerated this result transmit kenroy reference range : <=2. The reference range was not used to interpr et this result as elton l/abnormal. [facility] AND [id number] 23:05:00 Test Item Value Reference Range Interpretation Comments UA Bili (test code = Negative *NA*(08/22/18 UA Bili) 6:05 PM) [facility] AND [id number] 23:05:00 Test Item Value Reference Range Interpretation Comments UA Ketones (test code Negative *NA*(08/22/18 = UA Ketones) 6:05 PM) [facility] AND [id number] 23:05:00 Test Item Value Reference Range Interpretation Comments UA Glucose (test code Negative *NA*(08/22/18 = UA Glucose) 6:05 PM) [facility] AND [id number] 23:05:00 Test Item Value Reference Range Interpretation Comments UA Leuk Est (test Negative (08/22/18 6:05 code = UA Leuk Est) PM) [facility] AND [id number] 23:05:00 Test Item Value Reference Range Interpretation Comments UA Sq Epi (test code = UA Sq Epi) Many /LPF [facility] AND [id number] 23:05:00 Test Item Value Reference Range Interpretation Comments UA Hyal Cast (test 1 See_Comment [Automat ed message] The code = UA Hyal Cast) system which generated this result transmit kenroy reference range : <=2. The reference range was not used to interpr et this result as elton l/abnormal. [facility] AND [id number] 23:05:00 Test Item Value Reference Range Interpretation Comments UA Bacteria (test code = None Seen (08/22/18 UA Bacteria) 6:05 PM) [facility] AND [id number] 23:05:00 Test Item Value Reference Range Interpretation Comments UA Mucus (test code = UA Mucus) Few /LPF [facility] AND [id number] 23:05:00 Test Item Value Reference Range Interpretation Comments UA Blood (test code = Negative (08/22/18 6:05 UA Blood) PM) [facility] AND [id number] 23:05:00 Test Item Value Reference Range Interpretation Comments UA Urobilinogen (test code = UA <=1.0 mg/dL 0.1-1.0 Urobilinogen) [facility] [id number] 23:05:00 Test Item Value Reference Range Interpretation Comments UA Nitrite (test code Negative (08/22/18 6:05 = UA Nitrite) PM) [facility] [id number] 23:05:00 Test Item Value Reference Range Interpretation Comments UA Color (test code = Yellow *NA*(08/22/18 6:05 UA Color) PM) [facility] [id number] 23:05:00 Test Item Value Reference Range Interpretation Comments UA Protein (test code Negative (08/22/18 6:05 = UA Protein) PM) [facility] AND [id number] 23:05:00 Test Item Value Reference Range Interpretation Comments UA pH (test code = UA pH) 6.0 1 5.0-8.0 [facility] AND [id number] 23:05:00 Test Item Value Reference Range Interpretation Comments UA Spec Grav (test code = UA Spec 1.017 1 Grav) [facility] [id number] 23:05:00 Test Item Value Reference Range Interpretation Comments UA Turbidity (test code = Clear (08/22/18 6:05 UA Turbidity) PM) [facility]rip[facility]ARDI[facility] [id number] 23:05:00 Test Item Value Reference Range Interpretation Comments Total CK (test code = Total CK) 29 12-191 [facility]annCARD[facility]AC [id number] 23:05:00 Test Item Value Reference Range Interpretation Comments Troponin-I (test code no gt See_Comment [Auto mated message] The = Troponin-I) system which g enerated this result transmit kenroy reference range : <=0.40. The reference r alee was not used to interpr et this result as elton l/abnormal. [facility] EDUonGoannCARDIAC [id number] 23:05:00 Test Item Value Reference Range Interpretation Comments BNP (test code = BNP) 73 [facility] EnjoiCHEM [id number] 23:05:00 Test Item Value Reference Range Interpretation Comments eGFR (test code = eGFR) 92 [facility] [employer] [id number] 23:05:00 Test Item Value Reference Range Interpretation Comments Bili Total (test code = Bili Total) 0.2 0.2-1.3 [facility]2019-06-03 23:05:00 Test Item Value Reference Range Interpretation Comments Albumin Lvl (test code = Albumin Lvl) 3.0 3.5-5.0 [facility]2019-06-03 23:05:00 Test Item Value Reference Range Interpretation Comments Total Protein (test code = Total 7.4 6.4-8.4 Protein) [facility]2019-06-03 23:05:00 Test Item Value Reference Range Interpretation Comments Calcium Lvl (test code = Calcium Lvl) 9.2 8.5-10.5 [facility]2019-06-03 23:05:00 Test Item Value Reference Range Interpretation Comments Alk Phos (test code = Alk Phos) 93 39-136 [facility]2019-06-03 23:05:00 Test Item Value Reference Range Interpretation Comments AST (test code = AST) 9 See_Comment [Auto mated message] The system which nerated this result transmit kenroy reference range : <=37. The reference range was not used to interpr et this result as elton l/abnormal. [facility]2019-06-03 23:05:00 Test Item Value Reference Range Interpretation Comments ALT (test code = ALT) 19 See_Comment [Auto mated message] The system which ge nerated this result transmit kenroy reference range : <=65. The reference range was not used to interpr et this result as elton l/abnormal. [facility]2019-06-03 23:05:00 Test Item Value Reference Range Interpretation Comments CO2 (test code = CO2) 30 24-32 [facility]2019-06-03 23:05:00 Test Item Value Reference Range Interpretation Comments Chloride Lvl (test code = Chloride Lvl) 101 95-109 [facility]2019-06-03 23:05:00 Test Item Value Reference Range Interpretation Comments Sodium Lvl (test code = Sodium Lvl) 136 135-145 [facility]2019-06-03 23:05:00 Test Item Value Reference Range Interpretation Comments Creatinine Lvl (test code = Creatinine 0.81 0.50-1.40 Lvl) [facility]2019-06-03 23:05:00 Test Item Value Reference Range Interpretation Comments BUN (test code = BUN) 12 7-22 [facility]2019-06-03 23:05:00 Test Item Value Reference Range Interpretation Comments Glucose Lvl (test code = Glucose Lvl) 89 70-99 [facility]2019-06-03 23:05:00 Test Item Value Reference Range Interpretation Comments Potassium Lvl (test code = Potassium 4.1 3.5-5.1 Lvl) [facility]2019-06-03 23:05:00 Test Item Value Reference Range Interpretation Comments AGAP (test code = AGAP) 9.1 10.0-20.0 [facility]2019-06-03 23:05:00 Test Item Value Reference Range Interpretation Comments B/C Ratio (test code = B/C Ratio) 15 1 6-25 [facility]2019-06-03 23:05:00 Test Item Value Reference Range Interpretation Comments A/G Ratio (test code = A/G Ratio) 0.7 1 0.7-1.6 [facility]2019-06-03 23:05:00 Test Item Value Reference Range Interpretation Comments Globulin (test code = Globulin) 4.4 2.7-4.2 [facility]2019-06-03 23:05:00 Test Item Value Reference Range Interpretation Comments Magnesium Lvl (test code = Magnesium 1.9 1.8-2.4 Lvl) [facility]2019-06-03 23:05:00 Test Item Value Reference Range Interpretation Comments Phosphorus (test code = Phosphorus) 3.3 2.5-4.5 [id number] 23:05:00 Test Item Value Reference Range Interpretation Comments S Preg (test code = S Negative *NA*(08/22/18 Preg) 6:05 PM) [facility] CenterNoergqfHHMCSYIIHV6827-95-03 23:05:00 Test Item Value Reference Range Interpretation Comments RDW (test code = RDW) 17.9 11.5-14.5 [facility] CenterYwrpzfqUOWWXOGXKO5003-39-39 23:05:00 Test Item Value Reference Range Interpretation Comments Platelet (test code = Platelet) 320 133-450 [facility] CenterSifkghaUREKFVNPWS4820-98-78 23:05:00 Test Item Value Reference Range Interpretation Comments RBC (test code = RBC) 4.24 4.20-5.40 [facility] CenterBmixswyWVTIAUFXBE9922-69-63 23:05:00 Test Item Value Reference Range Interpretation Comments Hgb (test code = Hgb) 9.2 12.0-16.0 [facility] CenterKdexywcPFMHSHZRRJ5497-74-87 23:05:00 Test Item Value Reference Range Interpretation Comments MCHC (test code = MCHC) 31.6 32.0-36.0 [facility] CenterGxezjoiCJGQZVCPXJ3769-73-65 23:05:00 Test Item Value Reference Range Interpretation Comments MPV (test code = MPV) 7.4 7.4-10.4 [facility] CenterNjjvswkITCUSTGJVP7696-88-55 23:05:00 Test Item Value Reference Range Interpretation Comments Hct (test code = Hct) 29.1 36.0-48.0 [facility] CenterAiygxvsALXAIYYMLB3593-05-60 23:05:00 Test Item Value Reference Range Interpretation Comments MCV (test code = MCV) 68.6 80.0-98.0 [facility] CenterDnpjgyqZWSYHWLJWQ9855-79-30 23:05:00 Test Item Value Reference Range Interpretation Comments MCH (test code = MCH) 21.7 pg 27.0-31.0 [facility] CenterVvwcyiwBXHRHBHCYI5758-88-60 23:05:00 Test Item Value Reference Range Interpretation Comments WBC (test code = WBC) 6.8 3.7-10.4 [facility] CenterHpenngqRZSCXJTCHR1594-56-32 23:05:00 Test Item Value Reference Range Interpretation Comments INR (test code = INR) 0.91 1 0.85-1.17 [facility] CenterJjspfuvRJZUUVDSFN2291-27-93 23:05:00 Test Item Value Reference Range Interpretation Comments PT (test code = PT) 12.1 s 12.0-14.7 [facility] CenterTrfukrcFIPBMGKKQK1595-71-12 23:05:00 Test Item Value Reference Range Interpretation Comments PTT (test code = PTT) 26.3 s 22.9-35.8 [facility] CenterLbscltjNJRCOVLTZE1965-51-76 23:05:00 Test Item Value Reference Range Interpretation Comments Eosinophils # (test code 0.2 See_Comment [A utomated message] The = Eosinophils #) system ic h generated this result tra nsmitted reference range : <=0.5. The reference r alee was not used to int erpret this result as normal/abnormal . [facility] CenterGaqhdvnWDYZJKFDKI5246-93-29 23:05:00 Test Item Value Reference Range Interpretation Comments Microcyte (test code = 3+ *NA*(08/22/18 6:05 Microcyte) PM) [facility] CenterInzumqzDJVCEKCBAQ7847-33-13 23:05:00 Test Item Value Reference Range Interpretation Comments Monocytes (test code = Monocytes) 8.5 2.0-12.0 [facility] CenterPwvcojbWVJSVVBNQY2953-75-70 23:05:00 Test Item Value Reference Range Interpretation Comments Lymphocytes (test code = Lymphocytes) 34.3 20.0-40.0 [facility] CenterFwzcdmwGKZKPQQMHH0952-95-03 23:05:00 Test Item Value Reference Range Interpretation Comments Eosinophils (test code = 3.1 See_Comment [A utomated message] The Eosinophils) system which ge nerated this result tra nsmitted reference range : <=4.0. The reference r alee was not used to int erpret this result as normal/abnormal . [facility] CenterGtriibdYVMBIQSNUH4854-49-94 23:05:00 Test Item Value Reference Range Interpretation Comments Basophils (test code = 0.6 See_Comment [Aut omated message] The Basophils) system which ge nerated this result tra nsmitted reference range : <=1.0. The reference r alee was not used to int erpret this result as normal/abnormal . [facility] CenterUsiuxqzOQAJAXTGAS7615-70-29 23:05:00 Test Item Value Reference Range Interpretation Comments Lymphocytes # (test code = Lymphocytes 2.3 1.0-5.5 #) [facility] CenterYdtxngeZXCFWWCLZM7095-03-61 23:05:00 Test Item Value Reference Range Interpretation Comments Monocytes # (test code 0.6 See_Comment [Aut omated message] The = Monocytes #) system which generated this result tra nsmitted reference range : <=0.8. The reference r alee was not used to int erpret this result as normal/abnormal . [facility] CenterLcxdppnEUVFDSEFXQ7373-23-18 23:05:00 Test Item Value Reference Range Interpretation Comments Neutrophils # (test code = Neutrophils 3.7 1.5-8.1 #) [facility] CenterJmplvuiZXDTXMBIVW3626-38-70 23:05:00 Test Item Value Reference Range Interpretation Comments Segs (test code = Segs) 53.5 45.0-75.0 [facility] AND [id number] 23:05:00 Test Item Value Reference Range Interpretation Comments UA WBC (test code = 2 See_Comment [Automa kenroy message] The UA WBC) system which ge nerated this result transmit kenroy reference range : <=5. The reference range was not used to interpr et this result as elton l/abnormal. [facility] AND [id number] 23:05:00 Test Item Value Reference Range Interpretation Comments UA RBC (test code = 1 See_Comment [Automa kenroy message] The UA RBC) system which ge nerated this result transmit kenroy reference range : <=2. The reference range was not used to interpr et this result as elton l/abnormal. [facility] AND [id number] 23:05:00 Test Item Value Reference Range Interpretation Comments UA Bili (test code = Negative *NA*(08/22/18 UA Bili) 6:05 PM) [facility] AND [id number] 23:05:00 Test Item Value Reference Range Interpretation Comments UA Ketones (test code Negative *NA*(08/22/18 = UA Ketones) 6:05 PM) [facility] AND [id number] 23:05:00 Test Item Value Reference Range Interpretation Comments UA Glucose (test code Negative *NA*(08/22/18 = UA Glucose) 6:05 PM) [facility] AND [id number] 23:05:00 Test Item Value Reference Range Interpretation Comments UA Leuk Est (test Negative (08/22/18 6:05 code = UA Leuk Est) PM) [facility] AND [id number] 23:05:00 Test Item Value Reference Range Interpretation Comments UA Sq Epi (test code = UA Sq Epi) Many /LPF [facility] AND [id number] 23:05:00 Test Item Value Reference Range Interpretation Comments UA Hyal Cast (test 1 See_Comment [Automat ed message] The code = UA Hyal Cast) system which generated this result transmit kenroy reference range : <=2. The reference range was not used to interpr et this result as elton l/abnormal. [facility] AND [id number] 23:05:00 Test Item Value Reference Range Interpretation Comments UA Bacteria (test code = None Seen (08/22/18 UA Bacteria) 6:05 PM) [facility] AND [id number] 23:05:00 Test Item Value Reference Range Interpretation Comments UA Mucus (test code = UA Mucus) Few /LPF [facility] AND [id number] 23:05:00 Test Item Value Reference Range Interpretation Comments UA Blood (test code = Negative (08/22/18 6:05 UA Blood) PM) [facility] AND [id number] 23:05:00 Test Item Value Reference Range Interpretation Comments UA Urobilinogen (test code = UA <=1.0 mg/dL 0.1-1.0 Urobilinogen) [facility] AND [id number] 23:05:00 Test Item Value Reference Range Interpretation Comments UA Nitrite (test code Negative (08/22/18 6:05 = UA Nitrite) PM) [facility] AND [id number] 23:05:00 Test Item Value Reference Range Interpretation Comments UA Color (test code = Yellow *NA*(08/22/18 6:05 UA Color) PM) [facility] AND [id number] 23:05:00 Test Item Value Reference Range Interpretation Comments UA Protein (test code Negative (08/22/18 6:05 = UA Protein) PM) [facility] AND [id number] 23:05:00 Test Item Value Reference Range Interpretation Comments UA pH (test code = UA pH) 6.0 1 5.0-8.0 [facility] AND [id number] 23:05:00 Test Item Value Reference Range Interpretation Comments UA Spec Grav (test code = UA Spec 1.017 1 Grav) [facility] AND [id number] 23:05:00 Test Item Value Reference Range Interpretation Comments UA Turbidity (test code = Clear (08/22/18 6:05 UA Turbidity) PM) [facility]annCARD[facility]AC [id number] 23:05:00 Test Item Value Reference Range Interpretation Comments Total CK (test code = Total CK) 29 12-191 [facility] CenterannCARDIAC [id number] 23:05:00 Test Item Value Reference Range Interpretation Comments Troponin-I (test code no gt See_Comment [Auto mated message] The = Troponin-I) system which g enerated this result transmit kenroy reference range : <=0.40. The reference r alee was not used to interpr et this result as elton l/abnormal. [facility] [id number] 23:05:00 Test Item Value Reference Range Interpretation Comments BNP (test code = BNP) 73 [facility] [employer] [id number] 23:05:00 Test Item Value Reference Range Interpretation Comments eGFR (test code = eGFR) 92 [facility] [employer] [id number] 23:05:00 Test Item Value Reference Range Interpretation Comments Bili Total (test code = Bili Total) 0.2 0.2-1.3 [facility] [employer] [id number] 23:05:00 Test Item Value Reference Range Interpretation Comments Albumin Lvl (test code = Albumin Lvl) 3.0 3.5-5.0 [facility] [employer] [id number] 23:05:00 Test Item Value Reference Range Interpretation Comments Total Protein (test code = Total 7.4 6.4-8.4 Protein) [facility] [employer] [id number] 23:05:00 Test Item Value Reference Range Interpretation Comments Calcium Lvl (test code = Calcium Lvl) 9.2 8.5-10.5 [facility] [employer] [id number] 23:05:00 Test Item Value Reference Range Interpretation Comments Alk Phos (test code = Alk Phos) 93 39-136 [facility] CenterBl[facility] [employer] [id number] 23:05:00 Test Item Value Reference Range Interpretation Comments AST (test code = AST) 9 See_Comment [Auto mated message] The system which ge nerated this result transmit kenroy reference range : <=37. The reference range was not used to interpr et this result as elton l/abnormal. [facility] [employer] [id number] 23:05:00 Test Item Value Reference Range Interpretation Comments ALT (test code = ALT) 19 See_Comment [Auto mated message] The system which ge nerated this result transmit kenroy reference range : <=65. The reference range was not used to interpr et this result as elton l/abnormal. [facility] [employer] [id number] 23:05:00 Test Item Value Reference Range Interpretation Comments CO2 (test code = CO2) 30 24-32 [facility] CenterWallStripWILSON MEDICAL [id number] 23:05:00 Test Item Value Reference Range Interpretation Comments Chloride Lvl (test code = Chloride Lvl) 101 95-109 [facility]2019-06-03 23:05:00 Test Item Value Reference Range Interpretation Comments Sodium Lvl (test code = Sodium Lvl) 136 135-145 [facility] CenterWallStripWILSON MEDICAL [id number] 23:05:00 Test Item Value Reference Range Interpretation Comments Creatinine Lvl (test code = Creatinine 0.81 0.50-1.40 Lvl) [facility] CenterWallStripWILSON MEDICAL [id number] 23:05:00 Test Item Value Reference Range Interpretation Comments BUN (test code = BUN) 12 7-22 [facility] CenterWallStripWILSON MEDICAL [id number] 23:05:00 Test Item Value Reference Range Interpretation Comments Glucose Lvl (test code = Glucose Lvl) 89 70-99 [facility] CenterBl[facility] [employer] [id number] 23:05:00 Test Item Value Reference Range Interpretation Comments Potassium Lvl (test code = Potassium 4.1 3.5-5.1 Lvl) [facility] [employer] [id number] 23:05:00 Test Item Value Reference Range Interpretation Comments AGAP (test code = AGAP) 9.1 10.0-20.0 [facility] [employer] [id number] 23:05:00 Test Item Value Reference Range Interpretation Comments B/C Ratio (test code = B/C Ratio) 15 1 6-25 [facility] [employer] [id number] 23:05:00 Test Item Value Reference Range Interpretation Comments A/G Ratio (test code = A/G Ratio) 0.7 1 0.7-1.6 [facility] CenterWallStripWILSON MEDICAL [id number] 23:05:00 Test Item Value Reference Range Interpretation Comments Globulin (test code = Globulin) 4.4 2.7-4.2 [facility]2019-06-03 23:05:00 Test Item Value Reference Range Interpretation Comments Magnesium Lvl (test code = Magnesium 1.9 1.8-2.4 Lvl) [facility] [employer] [id number] 23:05:00 Test Item Value Reference Range Interpretation Comments Phosphorus (test code = Phosphorus) 3.3 2.5-4.5 [facility]PfwwzssRNUJEKNBXTRED7512-48-14 23:05:00 Test Item Value Reference Range Interpretation Comments S Preg (test code = S Negative *NA*(08/22/18 Preg) 6:05 PM) [facility] CenterZetvrjuNMGKAEKFOI6365-26-57 23:05:00 Test Item Value Reference Range Interpretation Comments RDW (test code = RDW) 17.9 11.5-14.5 [facility] CenterSjtdvraDESKHZDYHV7563-63-03 23:05:00 Test Item Value Reference Range Interpretation Comments Platelet (test code = Platelet) 320 133-450 [facility] CenterHpsicdqHPTLXLMRUR1413-51-27 23:05:00 Test Item Value Reference Range Interpretation Comments RBC (test code = RBC) 4.24 4.20-5.40 [facility] CenterWpaxyxiZAVQNQNIXW2702-44-24 23:05:00 Test Item Value Reference Range Interpretation Comments Hgb (test code = Hgb) 9.2 12.0-16.0 [facility] CenterWxzphzoVUFGOMQOIR3374-14-74 23:05:00 Test Item Value Reference Range Interpretation Comments MCHC (test code = MCHC) 31.6 32.0-36.0 [facility] CenterXrmcdukRKJMHKLFCP6107-22-54 23:05:00 Test Item Value Reference Range Interpretation Comments MPV (test code = MPV) 7.4 7.4-10.4 [facility] CenterXzbekpcLFYSGTYJYA3804-62-61 23:05:00 Test Item Value Reference Range Interpretation Comments Hct (test code = Hct) 29.1 36.0-48.0 [facility] CenterKtsxjmxOXSVLPJFND6430-09-32 23:05:00 Test Item Value Reference Range Interpretation Comments MCV (test code = MCV) 68.6 80.0-98.0 [facility] CenterYwayafmMVSLLPQILJ0368-15-03 23:05:00 Test Item Value Reference Range Interpretation Comments MCH (test code = MCH) 21.7 pg 27.0-31.0 [facility] Cent[id number] 23:05:00 Test Item Value Reference Range Interpretation Comments WBC (test code = WBC) 6.8 3.7-10.4 [facility] Cent[id number] 23:05:00 Test Item Value Reference Range Interpretation Comments INR (test code = INR) 0.91 1 0.85-1.17 [facility] C[id number] 23:05:00 Test Item Value Reference Range Interpretation Comments PT (test code = PT) 12.1 s 12.0-14.7 [facility] CenterXtmnddhMEMPTKQMPY2528-08-97 23:05:00 Test Item Value Reference Range Interpretation Comments PTT (test code = PTT) 26.3 s 22.9-35.8 [facility] CenterPtrqxjwWHTPZERBWK4610-77-01 23:05:00 Test Item Value Reference Range Interpretation Comments Eosinophils # (test code 0.2 See_Comment [A utomated message] The = Eosinophils #) system whic h generated this result tra nsmitted reference range : <=0.5. The reference r alee was not used to int erpret this result as normal/abnormal . [facility] CenterQvtgzjdSBFTSYOGHT0714-73-47 23:05:00 Test Item Value Reference Range Interpretation Comments Microcyte (test code = 3+ *NA*(08/22/18 6:05 Microcyte) PM) [facility] CenterMybjvczEYBENNZWHL9063-08-04 23:05:00 Test Item Value Reference Range Interpretation Comments Monocytes (test code = Monocytes) 8.5 2.0-12.0 [facility] CenterHthhztiTZGWDLFBTR6850-76-94 23:05:00 Test Item Value Reference Range Interpretation Comments Lymphocytes (test code = Lymphocytes) 34.3 20.0-40.0 [facility] CenterOfcolykURJVVECLME8258-39-96 23:05:00 Test Item Value Reference Range Interpretation Comments Eosinophils (test code = 3.1 See_Comment [A utomated message] The Eosinophils) system which ge nerated this result tra nsmitted reference range : <=4.0. The reference r alee was not used to int erpret this result as normal/abnormal . [facility] CenterCzazijdIECRKFBNGA0606-33-29 23:05:00 Test Item Value Reference Range Interpretation Comments Basophils (test code = 0.6 See_Comment [Aut omated message] The Basophils) system which ge nerated this result tra nsmitted reference range : <=1.0. The reference r alee was not used to int erpret this result as normal/abnormal . [facility] [id number] 23:05:00 Test Item Value Reference Range Interpretation Comments Lymphocytes # (test code = Lymphocytes 2.3 1.0-5.5 #) [facility] CenterFttcdqtYMBJDTKJWC1101-56-16 23:05:00 Test Item Value Reference Range Interpretation Comments Monocytes # (test code 0.6 See_Comment [Aut omated message] The = Monocytes #) system which generated this result tra nsmitted reference range : <=0.8. The reference r alee was not used to int erpret this result as normal/abnormal . [facility] Cent[id number] 23:05:00 Test Item Value Reference Range Interpretation Comments Neutrophils # (test code = Neutrophils 3.7 1.5-8.1 #) [facility] CenterMsffrsuRNQUBNMJUD8773-48-08 23:05:00 Test Item Value Reference Range Interpretation Comments Segs (test code = Segs) 53.5 45.0-75.0 [facility]2019-06-03 23:05:00 Test Item Value Reference Range Interpretation Comments UA WBC (test code = 2 See_Comment [Automa kenroy message] The UA WBC) system which ge nerated this result transmit kenroy reference range : <=5. The reference range was not used to interpr et this result as elton l/abnormal. [facility]2019-06-03 23:05:00 Test Item Value Reference Range Interpretation Comments UA RBC (test code = 1 See_Comment [Automa kenroy message] The UA RBC) system which ge nerated this result transmit kenroy reference range : <=2. The reference range was not used to interpr et this result as elton l/abnormal. [facility]2019-06-03 23:05:00 Test Item Value Reference Range Interpretation Comments UA Bili (test code = Negative *NA*(08/22/18 UA Bili) 6:05 PM) [facility] AND [id number] 23:05:00 Test Item Value Reference Range Interpretation Comments UA Ketones (test code Negative *NA*(08/22/18 = UA Ketones) 6:05 PM) [facility]2019-06-03 23:05:00 Test Item Value Reference Range Interpretation Comments UA Glucose (test code Negative *NA*(08/22/18 = UA Glucose) 6:05 PM) [facility] AND [id number] 23:05:00 Test Item Value Reference Range Interpretation Comments UA Leuk Est (test Negative (08/22/18 6:05 code = UA Leuk Est) PM) [facility] AND [id number] 23:05:00 Test Item Value Reference Range Interpretation Comments UA Sq Epi (test code = UA Sq Epi) Many /LPF [facility] AND [id number] 23:05:00 Test Item Value Reference Range Interpretation Comments UA Hyal Cast (test 1 See_Comment [Automat ed message] The code = UA Hyal Cast) system which generated this result transmit kenroy reference range : <=2. The reference range was not used to interpr et this result as elton l/abnormal. [facility] AND [id number] 23:05:00 Test Item Value Reference Range Interpretation Comments UA Bacteria (test code = None Seen (08/22/18 UA Bacteria) 6:05 PM) [facility] System AND [id number] 23:05:00 Test Item Value Reference Range Interpretation Comments UA Mucus (test code = UA Mucus) Few /LPF [facility] AND [id number] 23:05:00 Test Item Value Reference Range Interpretation Comments UA Blood (test code = Negative (08/22/18 6:05 UA Blood) PM) [facility] AND [id number] 23:05:00 Test Item Value Reference Range Interpretation Comments UA Urobilinogen (test code = UA <=1.0 mg/dL 0.1-1.0 Urobilinogen) [facility] AND [id number] 23:05:00 Test Item Value Reference Range Interpretation Comments UA Nitrite (test code Negative (08/22/18 6:05 = UA Nitrite) PM) [facility] AND [id number] 23:05:00 Test Item Value Reference Range Interpretation Comments UA Color (test code = Yellow *NA*(08/22/18 6:05 UA Color) PM) [facility] AND [id number] 23:05:00 Test Item Value Reference Range Interpretation Comments UA Protein (test code Negative (08/22/18 6:05 = UA Protein) PM) [facility] AND [id number] 23:05:00 Test Item Value Reference Range Interpretation Comments UA pH (test code = UA pH) 6.0 1 5.0-8.0 [facility] [id number] 23:05:00 Test Item Value Reference Range Interpretation Comments UA Spec Grav (test code = UA Spec 1.017 1 Grav) [facility] [id number] 23:05:00 Test Item Value Reference Range Interpretation Comments UA Turbidity (test code = Clear (08/22/18 6:05 UA Turbidity) PM) [facility]WallStripCARLight HarmonicAC [id number] 23:05:00 Test Item Value Reference Range Interpretation Comments Total CK (test code = Total CK) 29 12-191 [facility] CenterCytoSolvAC [id number] 23:05:00 Test Item Value Reference Range Interpretation Comments Troponin-I (test code no gt See_Comment [Auto mated message] The = Troponin-I) system which g enerated this result transmit kenroy reference range : <=0.40. The reference r alee was not used to interpr et this result as elton l/abnormal. [facility] [employer] [id number] 23:05:00 Test Item Value Reference Range Interpretation Comments BNP (test code = BNP) 73 [facility] [employer] [id number] 23:05:00 Test Item Value Reference Range Interpretation Comments eGFR (test code = eGFR) 92 [facility] [employer] [id number] 23:05:00 Test Item Value Reference Range Interpretation Comments Bili Total (test code = Bili Total) 0.2 0.2-1.3 [facility] [employer] [id number] 23:05:00 Test Item Value Reference Range Interpretation Comments Albumin Lvl (test code = Albumin Lvl) 3.0 3.5-5.0 [facility] [employer] [id number] 23:05:00 Test Item Value Reference Range Interpretation Comments Total Protein (test code = Total 7.4 6.4-8.4 Protein) [facility] [employer] [id number] 23:05:00 Test Item Value Reference Range Interpretation Comments Calcium Lvl (test code = Calcium Lvl) 9.2 8.5-10.5 [facility] [employer] [id number] 23:05:00 Test Item Value Reference Range Interpretation Comments Alk Phos (test code = Alk Phos) 93 39-136 [facility] [employer] [id number] 23:05:00 Test Item Value Reference Range Interpretation Comments AST (test code = AST) 9 See_Comment [Auto mated message] The system which ge nerated this result transmit kenroy reference range : <=37. The reference range was not used to interpr et this result as elton l/abnormal. [facility]2019-06-03 23:05:00 Test Item Value Reference Range Interpretation Comments ALT (test code = ALT) 19 See_Comment [Auto mated message] The system which ge nerated this result transmit kenroy reference range : <=65. The reference range was not used to interpr et this result as elton l/abnormal. [facility]2019-06-03 23:05:00 Test Item Value Reference Range Interpretation Comments CO2 (test code = CO2) 30 24-32 [facility]2019-06-03 23:05:00 Test Item Value Reference Range Interpretation Comments Chloride Lvl (test code = Chloride Lvl) 101 95-109 [facility]2019-06-03 23:05:00 Test Item Value Reference Range Interpretation Comments Sodium Lvl (test code = Sodium Lvl) 136 135-145 [facility]2019-06-03 23:05:00 Test Item Value Reference Range Interpretation Comments Creatinine Lvl (test code = Creatinine 0.81 0.50-1.40 Lvl) [facility]2019-06-03 23:05:00 Test Item Value Reference Range Interpretation Comments BUN (test code = BUN) 12 7-22 [facility]2019-06-03 23:05:00 Test Item Value Reference Range Interpretation Comments Glucose Lvl (test code = Glucose Lvl) 89 70-99 [facility]2019-06-03 23:05:00 Test Item Value Reference Range Interpretation Comments Potassium Lvl (test code = Potassium 4.1 3.5-5.1 Lvl) [facility]2019-06-03 23:05:00 Test Item Value Reference Range Interpretation Comments AGAP (test code = AGAP) 9.1 10.0-20.0 [facility]2019-06-03 23:05:00 Test Item Value Reference Range Interpretation Comments B/C Ratio (test code = B/C Ratio) 15 1 6-25 [facility]2019-06-03 23:05:00 Test Item Value Reference Range Interpretation Comments A/G Ratio (test code = A/G Ratio) 0.7 1 0.7-1.6 [facility]2019-06-03 23:05:00 Test Item Value Reference Range Interpretation Comments Globulin (test code = Globulin) 4.4 2.7-4.2 [facility]2019-06-03 23:05:00 Test Item Value Reference Range Interpretation Comments Magnesium Lvl (test code = Magnesium 1.9 1.8-2.4 Lvl) [facility]2019-06-03 23:05:00 Test Item Value Reference Range Interpretation Comments Phosphorus (test code = Phosphorus) 3.3 2.5-4.5 [id number] 23:05:00 Test Item Value Reference Range Interpretation Comments S Preg (test code = S Negative *NA*(08/22/18 Preg) 6:05 PM) [id number] 23:05:00 Test Item Value Reference Range Interpretation Comments RDW (test code = RDW) 17.9 11.5-14.5 [facility] [id number] 23:05:00 Test Item Value Reference Range Interpretation Comments Platelet (test code = Platelet) 320 133-450 [facility] [id number] 23:05:00 Test Item Value Reference Range Interpretation Comments RBC (test code = RBC) 4.24 4.20-5.40 [facility] C[id number] 23:05:00 Test Item Value Reference Range Interpretation Comments Hgb (test code = Hgb) 9.2 12.0-16.0 [facility] CenterFkvpyviSXJCYLPQJS4558-69-67 23:05:00 Test Item Value Reference Range Interpretation Comments MCHC (test code = MCHC) 31.6 32.0-36.0 [facility] Cent[id number] 23:05:00 Test Item Value Reference Range Interpretation Comments MPV (test code = MPV) 7.4 7.4-10.4 [facility] CenterTfbxgzgGTUGNGGOMP7412-80-03 23:05:00 Test Item Value Reference Range Interpretation Comments Hct (test code = Hct) 29.1 36.0-48.0 [facility] CenterSzcowrgRYGIMAQPNM9295-23-04 23:05:00 Test Item Value Reference Range Interpretation Comments MCV (test code = MCV) 68.6 80.0-98.0 [facility] CenterOzhgoubGQFGYCXMTS6970-83-10 23:05:00 Test Item Value Reference Range Interpretation Comments MCH (test code = MCH) 21.7 pg 27.0-31.0 [facility] C[id number] 23:05:00 Test Item Value Reference Range Interpretation Comments WBC (test code = WBC) 6.8 3.7-10.4 [facility] CenterCnrsmhvQMVUYHSBDO2326-79-78 23:05:00 Test Item Value Reference Range Interpretation Comments INR (test code = INR) 0.91 1 0.85-1.17 [facility] [id number] 23:05:00 Test Item Value Reference Range Interpretation Comments PT (test code = PT) 12.1 s 12.0-14.7 [facility] CenterSayebzeTLFGKQPBZB2241-36-89 23:05:00 Test Item Value Reference Range Interpretation Comments PTT (test code = PTT) 26.3 s 22.9-35.8 [facility] [id number] 23:05:00 Test Item Value Reference Range Interpretation Comments Eosinophils # (test code 0.2 See_Comment [A utomated message] The = Eosinophils #) system whic h generated this result tra nsmitted reference range : <=0.5. The reference r alee was not used to int erpret this result as normal/abnormal . [facility] C[id number] 23:05:00 Test Item Value Reference Range Interpretation Comments Microcyte (test code = 3+ *NA*(08/22/18 6:05 Microcyte) PM) [facility] CenterOsslxjpWQIEDRWKBW8776-03-38 23:05:00 Test Item Value Reference Range Interpretation Comments Monocytes (test code = Monocytes) 8.5 2.0-12.0 [facility] CenterCvwjtngNHFZCUIUKL5070-08-65 23:05:00 Test Item Value Reference Range Interpretation Comments Lymphocytes (test code = Lymphocytes) 34.3 20.0-40.0 [facility] CenterHqqemhpBOCDMFPSPK8759-11-70 23:05:00 Test Item Value Reference Range Interpretation Comments Eosinophils (test code = 3.1 See_Comment [A utomated message] The Eosinophils) system which ge nerated this result tra nsmitted reference range : <=4.0. The reference r alee was not used to int erpret this result as normal/abnormal . [facility] CenterPnegiewRQHGHQCRLR6079-19-88 23:05:00 Test Item Value Reference Range Interpretation Comments Basophils (test code = 0.6 See_Comment [Aut omated message] The Basophils) system which ge nerated this result tra nsmitted reference range : <=1.0. The reference r alee was not used to int erpret this result as normal/abnormal . [facility] [id number] 23:05:00 Test Item Value Reference Range Interpretation Comments Lymphocytes # (test code = Lymphocytes 2.3 1.0-5.5 #) [facility] C[id number] 23:05:00 Test Item Value Reference Range Interpretation Comments Monocytes # (test code 0.6 See_Comment [Aut omated message] The = Monocytes #) system which generated this result tra nsmitted reference range : <=0.8. The reference r alee was not used to int erpret this result as normal/abnormal . [facility] CenterCjxwsngPVMUZQZPZL8589-58-74 23:05:00 Test Item Value Reference Range Interpretation Comments Neutrophils # (test code = Neutrophils 3.7 1.5-8.1 #) [facility] Cent[id number] 23:05:00 Test Item Value Reference Range Interpretation Comments Segs (test code = Segs) 53.5 45.0-75.0 [facility]2019-06-03 23:05:00 Test Item Value Reference Range Interpretation Comments UA WBC (test code = 2 See_Comment [Automa kenroy message] The UA WBC) system which ge nerated this result transmit kenroy reference range : <=5. The reference range was not used to interpr et this result as elton l/abnormal. [facility] AND [id number] 23:05:00 Test Item Value Reference Range Interpretation Comments UA RBC (test code = 1 See_Comment [Automa kenroy message] The UA RBC) system which ge nerated this result transmit kenroy reference range : <=2. The reference range was not used to interpr et this result as elton l/abnormal. [facility]2019-06-03 23:05:00 Test Item Value Reference Range Interpretation Comments UA Bili (test code = Negative *NA*(6/3/19 UA Bili) 6:05 PM) [facility] AND [id number] 23:05:00 Test Item Value Reference Range Interpretation Comments UA Ketones (test code Negative *NA*(08/22/18 = UA Ketones) 6:05 PM) [facility] AND [id number] 23:05:00 Test Item Value Reference Range Interpretation Comments UA Glucose (test code Negative *NA*(08/22/18 = UA Glucose) 6:05 PM) [facility] AND [id number] 23:05:00 Test Item Value Reference Range Interpretation Comments UA Leuk Est (test Negative (08/22/18 6:05 code = UA Leuk Est) PM) [facility] AND [id number] 23:05:00 Test Item Value Reference Range Interpretation Comments UA Sq Epi (test code = UA Sq Epi) Many /LPF [facility] AND [id number] 23:05:00 Test Item Value Reference Range Interpretation Comments UA Hyal Cast (test 1 See_Comment [Automat ed message] The code = UA Hyal Cast) system which generated this result transmit kenroy reference range : <=2. The reference range was not used to interpr et this result as elton l/abnormal. [facility] AND [id number] 23:05:00 Test Item Value Reference Range Interpretation Comments UA Bacteria (test code = None Seen (08/22/18 UA Bacteria) 6:05 PM) [facility] AND [id number] 23:05:00 Test Item Value Reference Range Interpretation Comments UA Mucus (test code = UA Mucus) Few /LPF [facility] AND [id number] 23:05:00 Test Item Value Reference Range Interpretation Comments UA Blood (test code = Negative (08/22/18 6:05 UA Blood) PM) [facility] AND [id number] 23:05:00 Test Item Value Reference Range Interpretation Comments UA Urobilinogen (test code = UA <=1.0 mg/dL 0.1-1.0 Urobilinogen) [facility] AND [id number] 23:05:00 Test Item Value Reference Range Interpretation Comments UA Nitrite (test code Negative (08/22/18 6:05 = UA Nitrite) PM) [facility] [id number] 23:05:00 Test Item Value Reference Range Interpretation Comments UA Color (test code = Yellow *NA*(08/22/18 6:05 UA Color) PM) [facility] AND [id number] 23:05:00 Test Item Value Reference Range Interpretation Comments UA Protein (test code Negative (08/22/18 6:05 = UA Protein) PM) [facility] AND [id number] 23:05:00 Test Item Value Reference Range Interpretation Comments UA pH (test code = UA pH) 6.0 1 5.0-8.0 [facility] AND [id number] 23:05:00 Test Item Value Reference Range Interpretation Comments UA Spec Grav (test code = UA Spec 1.017 1 Grav) [facility] AND [id number] 23:05:00 Test Item Value Reference Range Interpretation Comments UA Turbidity (test code = Clear (08/22/18 6:05 UA Turbidity) PM) [facility] CenterannCARDIAC [id number] 23:05:00 Test Item Value Reference Range Interpretation Comments Total CK (test code = Total CK) 29 12-191 [facility] CenterWallStripCARDIAC [id number] 23:05:00 Test Item Value Reference Range Interpretation Comments Troponin-I (test code no gt See_Comment [Auto mated message] The = Troponin-I) system which g enerated this result transmit kenroy reference range : <=0.40. The reference r alee was not used to interpr et this result as elton l/abnormal. [facility] EDUonGoannCARDIAC [id number] 23:05:00 Test Item Value Reference Range Interpretation Comments BNP (test code = BNP) 73 [facility] EDUonGoannCHEM [id number] 23:05:00 Test Item Value Reference Range Interpretation Comments eGFR (test code = eGFR) 92 [facility] EDUonGoannBuscoTurno [id number] 23:05:00 Test Item Value Reference Range Interpretation Comments Bili Total (test code = Bili Total) 0.2 0.2-1.3 [facility] EDUonGoannCHEM [id number] 23:05:00 Test Item Value Reference Range Interpretation Comments Albumin Lvl (test code = Albumin Lvl) 3.0 3.5-5.0 [facility]2019-06-03 23:05:00 Test Item Value Reference Range Interpretation Comments Total Protein (test code = Total 7.4 6.4-8.4 Protein) [facility]2019-06-03 23:05:00 Test Item Value Reference Range Interpretation Comments Calcium Lvl (test code = Calcium Lvl) 9.2 8.5-10.5 [facility]2019-06-03 23:05:00 Test Item Value Reference Range Interpretation Comments Alk Phos (test code = Alk Phos) 93 39-136 [facility]2019-06-03 23:05:00 Test Item Value Reference Range Interpretation Comments AST (test code = AST) 9 See_Comment [Auto mated message] The system which ge nerated this result transmit kenroy reference range : <=37. The reference range was not used to interpr et this result as elton l/abnormal. [facility]2019-06-03 23:05:00 Test Item Value Reference Range Interpretation Comments ALT (test code = ALT) 19 See_Comment [Auto mated message] The system which ge nerated this result transmit kenroy reference range : <=65. The reference range was not used to interpr et this result as elton l/abnormal. [facility]2019-06-03 23:05:00 Test Item Value Reference Range Interpretation Comments CO2 (test code = CO2) 30 24-32 [facility]2019-06-03 23:05:00 Test Item Value Reference Range Interpretation Comments Chloride Lvl (test code = Chloride Lvl) 101 95-109 [facility]2019-06-03 23:05:00 Test Item Value Reference Range Interpretation Comments Sodium Lvl (test code = Sodium Lvl) 136 135-145 [facility]2019-06-03 23:05:00 Test Item Value Reference Range Interpretation Comments Creatinine Lvl (test code = Creatinine 0.81 0.50-1.40 Lvl) [facility]2019-06-03 23:05:00 Test Item Value Reference Range Interpretation Comments BUN (test code = BUN) 12 7-22 [facility]2019-06-03 23:05:00 Test Item Value Reference Range Interpretation Comments Glucose Lvl (test code = Glucose Lvl) 89 70-99 [facility]2019-06-03 23:05:00 Test Item Value Reference Range Interpretation Comments Potassium Lvl (test code = Potassium 4.1 3.5-5.1 Lvl) [facility]2019-06-03 23:05:00 Test Item Value Reference Range Interpretation Comments AGAP (test code = AGAP) 9.1 10.0-20.0 [facility]2019-06-03 23:05:00 Test Item Value Reference Range Interpretation Comments B/C Ratio (test code = B/C Ratio) 15 1 6-25 [facility]2019-06-03 23:05:00 Test Item Value Reference Range Interpretation Comments A/G Ratio (test code = A/G Ratio) 0.7 1 0.7-1.6 [facility]2019-06-03 23:05:00 Test Item Value Reference Range Interpretation Comments Globulin (test code = Globulin) 4.4 2.7-4.2 [facility]2019-06-03 23:05:00 Test Item Value Reference Range Interpretation Comments Magnesium Lvl (test code = Magnesium 1.9 1.8-2.4 Lvl) [facility]2019-06-03 23:05:00 Test Item Value Reference Range Interpretation Comments Phosphorus (test code = Phosphorus) 3.3 2.5-4.5 [id number] 23:05:00 Test Item Value Reference Range Interpretation Comments S Preg (test code = S Negative *NA*(08/22/18 Preg) 6:05 PM) [facility] CenterTeoxwncTIYPGGPFYX7934-94-39 23:05:00 Test Item Value Reference Range Interpretation Comments RDW (test code = RDW) 17.9 11.5-14.5 [facility] C[id number] 23:05:00 Test Item Value Reference Range Interpretation Comments Platelet (test code = Platelet) 320 133-450 [facility] CenterSrfozejJCVPTQKSID2223-40-64 23:05:00 Test Item Value Reference Range Interpretation Comments RBC (test code = RBC) 4.24 4.20-5.40 [facility] CenterWerifvrTKRQKSHYPM8416-34-41 23:05:00 Test Item Value Reference Range Interpretation Comments Hgb (test code = Hgb) 9.2 12.0-16.0 [facility] CenterIlkbeykTXDYDHYSVO1866-74-03 23:05:00 Test Item Value Reference Range Interpretation Comments MCHC (test code = MCHC) 31.6 32.0-36.0 [facility] Cent[id number] 23:05:00 Test Item Value Reference Range Interpretation Comments MPV (test code = MPV) 7.4 7.4-10.4 [facility] CenterKlvjktbZISTZVSOHL2625-83-68 23:05:00 Test Item Value Reference Range Interpretation Comments Hct (test code = Hct) 29.1 36.0-48.0 [facility] CenterYimjllkEWCTHTPBMB7457-64-93 23:05:00 Test Item Value Reference Range Interpretation Comments MCV (test code = MCV) 68.6 80.0-98.0 [facility] CenterOaoloeoRZOOVOACOY0573-23-29 23:05:00 Test Item Value Reference Range Interpretation Comments MCH (test code = MCH) 21.7 pg 27.0-31.0 [facility] CenterTycmtknXTRCPNVFGC6958-94-00 23:05:00 Test Item Value Reference Range Interpretation Comments WBC (test code = WBC) 6.8 3.7-10.4 [facility] CenterLhdphnmFZDQSLYVWG8817-61-66 23:05:00 Test Item Value Reference Range Interpretation Comments INR (test code = INR) 0.91 1 0.85-1.17 [facility] CenterGrppqjvXXFIZBINVI4975-76-35 23:05:00 Test Item Value Reference Range Interpretation Comments PT (test code = PT) 12.1 s 12.0-14.7 [facility] C[id number] 23:05:00 Test Item Value Reference Range Interpretation Comments PTT (test code = PTT) 26.3 s 22.9-35.8 [facility] CenterLpfcmxuHRCIVCPPKP3279-56-59 23:05:00 Test Item Value Reference Range Interpretation Comments Eosinophils # (test code 0.2 See_Comment [A utomated message] The = Eosinophils #) system whic h generated this result tra nsmitted reference range : <=0.5. The reference r alee was not used to int erpret this result as normal/abnormal . [facility] CenterVrcqbktRWCGNEZZXM1386-16-22 23:05:00 Test Item Value Reference Range Interpretation Comments Microcyte (test code = 3+ *NA*(08/22/18 6:05 Microcyte) PM) [facility] Cent[id number] 23:05:00 Test Item Value Reference Range Interpretation Comments Monocytes (test code = Monocytes) 8.5 2.0-12.0 [facility] CenterRffyfhlNUFJBLAQGX4319-47-99 23:05:00 Test Item Value Reference Range Interpretation Comments Lymphocytes (test code = Lymphocytes) 34.3 20.0-40.0 [facility] CenterQrbotbcQUBACANWKQ9021-57-39 23:05:00 Test Item Value Reference Range Interpretation Comments Eosinophils (test code = 3.1 See_Comment [A utomated message] The Eosinophils) system which ge nerated this result tra nsmitted reference range : <=4.0. The reference r alee was not used to int erpret this result as normal/abnormal . [facility] CenterHrpxknoRFVYBMSLQX3160-52-84 23:05:00 Test Item Value Reference Range Interpretation Comments Basophils (test code = 0.6 See_Comment [Aut omated message] The Basophils) system which ge nerated this result tra nsmitted reference range : <=1.0. The reference r alee was not used to int erpret this result as normal/abnormal . [facility] CenterYeipifbLBVSMNPAQG0655-55-50 23:05:00 Test Item Value Reference Range Interpretation Comments Lymphocytes # (test code = Lymphocytes 2.3 1.0-5.5 #) [facility] CenterXlftyskVGBEDSKDTB0034-93-47 23:05:00 Test Item Value Reference Range Interpretation Comments Monocytes # (test code 0.6 See_Comment [Aut omated message] The = Monocytes #) system which generated this result tra nsmitted reference range : <=0.8. The reference r alee was not used to int erpret this result as normal/abnormal . [facility] CenterTebfvymRSBFHKFQXN2641-82-87 23:05:00 Test Item Value Reference Range Interpretation Comments Neutrophils # (test code = Neutrophils 3.7 1.5-8.1 #) [facility] CenterTzjninwZGCYJMXEAJ6865-40-47 23:05:00 Test Item Value Reference Range Interpretation Comments Segs (test code = Segs) 53.5 45.0-75.0 [facility]2019-06-03 23:05:00 Test Item Value Reference Range Interpretation Comments UA WBC (test code = 2 See_Comment [Automa kenroy message] The UA WBC) system which ge nerated this result transmit kenroy reference range : <=5. The reference range was not used to interpr et this result as elton l/abnormal. [facility] AND [id number] 23:05:00 Test Item Value Reference Range Interpretation Comments UA RBC (test code = 1 See_Comment [Automa kenroy message] The UA RBC) system which ge nerated this result transmit kenroy reference range : <=2. The reference range was not used to interpr et this result as elton l/abnormal. [facility] AND [id number] 23:05:00 Test Item Value Reference Range Interpretation Comments UA Bili (test code = Negative *NA*(08/22/18 UA Bili) 6:05 PM) [facility] AND [id number] 23:05:00 Test Item Value Reference Range Interpretation Comments UA Ketones (test code Negative *NA*(08/22/18 = UA Ketones) 6:05 PM) [facility] AND [id number] 23:05:00 Test Item Value Reference Range Interpretation Comments UA Glucose (test code Negative *NA*(08/22/18 = UA Glucose) 6:05 PM) [facility] AND [id number] 23:05:00 Test Item Value Reference Range Interpretation Comments UA Leuk Est (test Negative (08/22/18 6:05 code = UA Leuk Est) PM) [facility] AND [id number] 23:05:00 Test Item Value Reference Range Interpretation Comments UA Sq Epi (test code = UA Sq Epi) Many /LPF [facility] AND [id number] 23:05:00 Test Item Value Reference Range Interpretation Comments UA Hyal Cast (test 1 See_Comment [Automat ed message] The code = UA Hyal Cast) system which generated this result transmit kenroy reference range : <=2. The reference range was not used to interpr et this result as elton l/abnormal. [facility] AND [id number] 23:05:00 Test Item Value Reference Range Interpretation Comments UA Bacteria (test code = None Seen (08/22/18 UA Bacteria) 6:05 PM) [facility] AND [id number] 23:05:00 Test Item Value Reference Range Interpretation Comments UA Mucus (test code = UA Mucus) Few /LPF [facility] AND [id number] 23:05:00 Test Item Value Reference Range Interpretation Comments UA Blood (test code = Negative (08/22/18 6:05 UA Blood) PM) [facility] AND [id number] 23:05:00 Test Item Value Reference Range Interpretation Comments UA Urobilinogen (test code = UA <=1.0 mg/dL 0.1-1.0 Urobilinogen) [facility] AND [id number] 23:05:00 Test Item Value Reference Range Interpretation Comments UA Nitrite (test code Negative (08/22/18 6:05 = UA Nitrite) PM) [facility] AND [id number] 23:05:00 Test Item Value Reference Range Interpretation Comments UA Color (test code = Yellow *NA*(08/22/18 6:05 UA Color) PM) [facility] AND [id number] 23:05:00 Test Item Value Reference Range Interpretation Comments UA Protein (test code Negative (08/22/18 6:05 = UA Protein) PM) [facility] AND [id number] 23:05:00 Test Item Value Reference Range Interpretation Comments UA pH (test code = UA pH) 6.0 1 5.0-8.0 [facility] AND [id number] 23:05:00 Test Item Value Reference Range Interpretation Comments UA Spec Grav (test code = UA Spec 1.017 1 Grav) [facility] AND [id number] 23:05:00 Test Item Value Reference Range Interpretation Comments UA Turbidity (test code = Clear (08/22/18 6:05 UA Turbidity) PM) [id number]:05:00 Test Item Value Reference Range Interpretation Comments Total CK (test code = Total CK) 29 12-191 [facility] [id number] 23:05:00 Test Item Value Reference Range Interpretation Comments Troponin-I (test code no gt See_Comment [Auto mated message] The = Troponin-I) system which g enerated this result transmit kenroy reference range : <=0.40. The reference r alee was not used to interpr et this result as elton l/abnormal. [facility] [id number] 23:05:00 Test Item Value Reference Range Interpretation Comments BNP (test code = BNP) 73 [facility] [id number] 23:05:00 Test Item Value Reference Range Interpretation Comments eGFR (test code = eGFR) 92 [facility]2019-06-03 23:05:00 Test Item Value Reference Range Interpretation Comments Bili Total (test code = Bili Total) 0.2 0.2-1.3 [facility]2019-06-03 23:05:00 Test Item Value Reference Range Interpretation Comments Albumin Lvl (test code = Albumin Lvl) 3.0 3.5-5.0 [facility]WallStripW[id number] 23:05:00 Test Item Value Reference Range Interpretation Comments Total Protein (test code = Total 7.4 6.4-8.4 Protein) [facility]2019-06-03 23:05:00 Test Item Value Reference Range Interpretation Comments Calcium Lvl (test code = Calcium Lvl) 9.2 8.5-10.5 [facility] [employer] [id number] 23:05:00 Test Item Value Reference Range Interpretation Comments Alk Phos (test code = Alk Phos) 93 39-136 [facility] [id number] 23:05:00 Test Item Value Reference Range Interpretation Comments AST (test code = AST) 9 See_Comment [Auto mated message] The system which ge nerated this result transmit kenroy reference range : <=37. The reference range was not used to interpr et this result as elton l/abnormal. [facility] [id number] 23:05:00 Test Item Value Reference Range Interpretation Comments ALT (test code = ALT) 19 See_Comment [Auto mated message] The system which ge nerated this result transmit kenroy reference range : <=65. The reference range was not used to interpr et this result as elton l/abnormal. [facility] HospitalBuscoTurno [id number] 23:05:00 Test Item Value Reference Range Interpretation Comments CO2 (test code = CO2) 30 24-32 [facility] [id number] 23:05:00 Test Item Value Reference Range Interpretation Comments Chloride Lvl (test code = Chloride Lvl) 101 95-109 [facility]2019-06-03 23:05:00 Test Item Value Reference Range Interpretation Comments Sodium Lvl (test code = Sodium Lvl) 136 135-145 [facility]2019-06-03 23:05:00 Test Item Value Reference Range Interpretation Comments Creatinine Lvl (test code = Creatinine 0.81 0.50-1.40 Lvl) [facility]2019-06-03 23:05:00 Test Item Value Reference Range Interpretation Comments BUN (test code = BUN) 12 7-22 [facility]2019-06-03 23:05:00 Test Item Value Reference Range Interpretation Comments Glucose Lvl (test code = Glucose Lvl) 89 70-99 [facility]2019-06-03 23:05:00 Test Item Value Reference Range Interpretation Comments Potassium Lvl (test code = Potassium 4.1 3.5-5.1 Lvl) [facility]2019-06-03 23:05:00 Test Item Value Reference Range Interpretation Comments AGAP (test code = AGAP) 9.1 10.0-20.0 [facility]2019-06-03 23:05:00 Test Item Value Reference Range Interpretation Comments B/C Ratio (test code = B/C Ratio) 15 1 6-25 [facility]2019-06-03 23:05:00 Test Item Value Reference Range Interpretation Comments A/G Ratio (test code = A/G Ratio) 0.7 1 0.7-1.6 [facility]2019-06-03 23:05:00 Test Item Value Reference Range Interpretation Comments Globulin (test code = Globulin) 4.4 2.7-4.2 [facility]2019-06-03 23:05:00 Test Item Value Reference Range Interpretation Comments Magnesium Lvl (test code = Magnesium 1.9 1.8-2.4 Lvl) [facility]2019-06-03 23:05:00 Test Item Value Reference Range Interpretation Comments Phosphorus (test code = Phosphorus) 3.3 2.5-4.5 [id number] 23:05:00 Test Item Value Reference Range Interpretation Comments S Preg (test code = S Negative *NA*(6/3/19 Preg) 6:05 PM) [id number] 23:05:00 Test Item Value Reference Range Interpretation Comments RDW (test code = RDW) 17.9 11.5-14.5 [facility] CenterLwzkqqaCYNKUQDOJZ5991-78-25 23:05:00 Test Item Value Reference Range Interpretation Comments Platelet (test code = Platelet) 320 133-450 [facility] CenterMbyluxgUUBTDZAFXF9803-77-14 23:05:00 Test Item Value Reference Range Interpretation Comments RBC (test code = RBC) 4.24 4.20-5.40 [facility] CenterCevowhfSVFAJXMDSD6798-22-87 23:05:00 Test Item Value Reference Range Interpretation Comments Hgb (test code = Hgb) 9.2 12.0-16.0 [facility] CenterXqjgfvbMMDPHRFEMK8508-76-40 23:05:00 Test Item Value Reference Range Interpretation Comments MCHC (test code = MCHC) 31.6 32.0-36.0 [facility] CenterYdkntjhYPPSTKJTUM3964-89-15 23:05:00 Test Item Value Reference Range Interpretation Comments MPV (test code = MPV) 7.4 7.4-10.4 [facility] CenterUxkyjefFEFVPKZBUY0878-26-08 23:05:00 Test Item Value Reference Range Interpretation Comments Hct (test code = Hct) 29.1 36.0-48.0 [facility] CenterCigxdmiCHVSDUPAWQ8911-07-57 23:05:00 Test Item Value Reference Range Interpretation Comments MCV (test code = MCV) 68.6 80.0-98.0 [facility] CenterZqbucnzIOQQYFEMPT9852-53-07 23:05:00 Test Item Value Reference Range Interpretation Comments MCH (test code = MCH) 21.7 pg 27.0-31.0 [facility] CenterXhbmevjQPQQNEKPML1278-30-40 23:05:00 Test Item Value Reference Range Interpretation Comments WBC (test code = WBC) 6.8 3.7-10.4 [facility] CenterOvptbdhOESYSZDWDX9331-20-00 23:05:00 Test Item Value Reference Range Interpretation Comments INR (test code = INR) 0.91 1 0.85-1.17 [facility] CenterPoffzpqDYKQXYUYZP6394-32-51 23:05:00 Test Item Value Reference Range Interpretation Comments PT (test code = PT) 12.1 s 12.0-14.7 [facility] CenterExuipozIWTSZAWNNZ7010-40-82 23:05:00 Test Item Value Reference Range Interpretation Comments PTT (test code = PTT) 26.3 s 22.9-35.8 [facility] C[id number] 23:05:00 Test Item Value Reference Range Interpretation Comments Eosinophils # (test code 0.2 See_Comment [A utomated message] The = Eosinophils #) system wh h generated this result tra nsmitted reference range : <=0.5. The reference r alee was not used to int erpret this result as normal/abnormal . [facility] CenterYmiundsIJDMHKKUQJ2701-20-94 23:05:00 Test Item Value Reference Range Interpretation Comments Microcyte (test code = 3+ *NA*(08/22/18 6:05 Microcyte) PM) [facility] CenterAvuhfooYSECIEFGYO0431-60-09 23:05:00 Test Item Value Reference Range Interpretation Comments Monocytes (test code = Monocytes) 8.5 2.0-12.0 [facility] CenterBtazcmyTEBCGUIFLB8759-83-78 23:05:00 Test Item Value Reference Range Interpretation Comments Lymphocytes (test code = Lymphocytes) 34.3 20.0-40.0 [facility] Cent[id number] 23:05:00 Test Item Value Reference Range Interpretation Comments Eosinophils (test code = 3.1 See_Comment [A utomated message] The Eosinophils) system which ge nerated this result tra nsmitted reference range : <=4.0. The reference r alee was not used to int erpret this result as normal/abnormal . [facility] CenterXgnrkpoIDOFMBTFJY7577-77-45 23:05:00 Test Item Value Reference Range Interpretation Comments Basophils (test code = 0.6 See_Comment [Aut omated message] The Basophils) system which ge nerated this result tra nsmitted reference range : <=1.0. The reference r alee was not used to int erpret this result as normal/abnormal . [facility] CenterWalcnxpDVNTOTVFAS9485-64-37 23:05:00 Test Item Value Reference Range Interpretation Comments Lymphocytes # (test code = Lymphocytes 2.3 1.0-5.5 #) [facility] CenterUjjiacbVMDPQRJCNF1613-80-44 23:05:00 Test Item Value Reference Range Interpretation Comments Monocytes # (test code 0.6 See_Comment [Aut omated message] The = Monocytes #) system which generated this result tra nsmitted reference range : <=0.8. The reference r alee was not used to int erpret this result as normal/abnormal . [facility] C[id number] 23:05:00 Test Item Value Reference Range Interpretation Comments Neutrophils # (test code = Neutrophils 3.7 1.5-8.1 #) [facility] CenterHlshynwUVOHKGCHPZ6026-20-81 23:05:00 Test Item Value Reference Range Interpretation Comments Segs (test code = Segs) 53.5 45.0-75.0 [facility]2019-06-03 23:05:00 Test Item Value Reference Range Interpretation Comments UA WBC (test code = 2 See_Comment [Automa kenroy message] The UA WBC) system which ge nerated this result transmit kenroy reference range : <=5. The reference range was not used to interpr et this result as elton l/abnormal. [facility]2019-06-03 23:05:00 Test Item Value Reference Range Interpretation Comments UA RBC (test code = 1 See_Comment [Automa kenroy message] The UA RBC) system which ge nerated this result transmit kenroy reference range : <=2. The reference range was not used to interpr et this result as elton l/abnormal. [facility] AND [id number] 23:05:00 Test Item Value Reference Range Interpretation Comments UA Bili (test code = Negative *NA*(08/22/18 UA Bili) 6:05 PM) [facility] AND [id number] 23:05:00 Test Item Value Reference Range Interpretation Comments UA Ketones (test code Negative *NA*(08/22/18 = UA Ketones) 6:05 PM) [facility] AND [id number] 23:05:00 Test Item Value Reference Range Interpretation Comments UA Glucose (test code Negative *NA*(08/22/18 = UA Glucose) 6:05 PM) [facility] AND [id number] 23:05:00 Test Item Value Reference Range Interpretation Comments UA Leuk Est (test Negative (08/22/18 6:05 code = UA Leuk Est) PM) [facility] AND [id number] 23:05:00 Test Item Value Reference Range Interpretation Comments UA Sq Epi (test code = UA Sq Epi) Many /LPF [facility] AND [id number] 23:05:00 Test Item Value Reference Range Interpretation Comments UA Hyal Cast (test 1 See_Comment [Automat ed message] The code = UA Hyal Cast) system which generated this result transmit kenroy reference range : <=2. The reference range was not used to interpr et this result as elton l/abnormal. [facility] AND [id number] 23:05:00 Test Item Value Reference Range Interpretation Comments UA Bacteria (test code = None Seen (08/22/18 UA Bacteria) 6:05 PM) [facility] AND [id number] 23:05:00 Test Item Value Reference Range Interpretation Comments UA Mucus (test code = UA Mucus) Few /LPF [facility] AND [id number] 23:05:00 Test Item Value Reference Range Interpretation Comments UA Blood (test code = Negative (08/22/18 6:05 UA Blood) PM) [facility] AND [id number] 23:05:00 Test Item Value Reference Range Interpretation Comments UA Urobilinogen (test code = UA <=1.0 mg/dL 0.1-1.0 Urobilinogen) [facility] AND [id number] 23:05:00 Test Item Value Reference Range Interpretation Comments UA Nitrite (test code Negative (08/22/18 6:05 = UA Nitrite) PM) [facility] AND [id number] 23:05:00 Test Item Value Reference Range Interpretation Comments UA Color (test code = Yellow *NA*(08/22/18 6:05 UA Color) PM) [facility] AND [id number] 23:05:00 Test Item Value Reference Range Interpretation Comments UA Protein (test code Negative (08/22/18 6:05 = UA Protein) PM) [facility] AND [id number] 23:05:00 Test Item Value Reference Range Interpretation Comments UA pH (test code = UA pH) 6.0 1 5.0-8.0 [facility] AND [id number] 23:05:00 Test Item Value Reference Range Interpretation Comments UA Spec Grav (test code = UA Spec 1.017 1 Grav) [facility] AND [id number] 23:05:00 Test Item Value Reference Range Interpretation Comments UA Turbidity (test code = Clear (08/22/18 6:05 UA Turbidity) PM) [facility] [employer]2019-05-30 08:05:00 Test Item Value Reference Range Interpretation Comments Troponin-I (test code no gt See_Comment [Auto mated message] The = Troponin-I) system which g enerated this result transmit kenroy reference range : <=0.40. The reference r alee was not used to interpr et this result as elton l/abnormal. [facility]W[employer]2019-05-30 08:05:00 Test Item Value Reference Range Interpretation Comments Troponin-I (test code no gt See_Comment [Auto mated message] The = Troponin-I) system which g enerated this result transmit kenroy reference range : <=0.40. The reference r alee was not used to interpr et this result as elton l/abnormal. [facility]2019-05-30 08:05:00 Test Item Value Reference Range Interpretation Comments Troponin-I (test code no gt See_Comment [Auto mated message] The = Troponin-I) system which g enerated this result transmit kenroy reference range : <=0.40. The reference r alee was not used to interpr et this result as elton l/abnormal. [facility] [employer]2019-05-30 08:05:00 Test Item Value Reference Range Interpretation Comments Troponin-I (test code no gt See_Comment [Auto mated message] The = Troponin-I) system which g enerated this result transmit kenroy reference range : <=0.40. The reference r alee was not used to interpr et this result as elton l/abnormal. [facility]2019-05-30 08:05:00 Test Item Value Reference Range Interpretation Comments Troponin-I (test code no gt See_Comment [Auto mated message] The = Troponin-I) system which g enerated this result transmit kenroy reference range : <=0.40. The reference r alee was not used to interpr et this result as elton l/abnormal. [facility] [employer]2019-05-30 08:05:00 Test Item Value Reference Range Interpretation Comments Troponin-I (test code no gt See_Comment [Auto mated message] The = Troponin-I) system which g enerated this result transmit kenroy reference range : <=0.40. The reference r alee was not used to interpr et this result as elton l/abnormal. [facility]2019-05-30 08:05:00 Test Item Value Reference Range Interpretation Comments Troponin-I (test code no gt See_Comment [Auto mated message] The = Troponin-I) system which g enerated this result transmit kenroy reference range : <=0.40. The reference r alee was not used to interpr et this result as elton l/abnormal. [employer]2019-05-30 08:05:00 Test Item Value Reference Range Interpretation Comments Troponin-I (test code no gt See_Comment [Auto mated message] The = Troponin-I) system which g enerated this result transmit kenroy reference range : <=0.40. The reference r alee was not used to interpr et this result as elton l/abnormal. [facility] [employer]2019-05-30 04:32:00 Test Item Value Reference Range Interpretation Comments BNP (test code = BNP) 65 [facility] [employer]2019-05-30 04:32:00 Test Item Value Reference Range Interpretation Comments Troponin-I (test code no gt See_Comment [Auto mated message] The = Troponin-I) system which g enerated this result transmit kenroy reference range : <=0.40. The reference r alee was not used to interpr et this result as elton l/abnormal. [facility] [employer]2019-05-30 04:32:00 Test Item Value Reference Range Interpretation Comments Total CK (test code = Total CK) 40 12-191 [facility] [employer]2019-05-30 04:32:00 Test Item Value Reference Range Interpretation Comments eGFR (test code = eGFR) 88 [facility] [employer]2019-05-30 04:32:00 Test Item Value Reference Range Interpretation Comments Potassium Lvl (test code = Potassium 3.8 3.5-5.1 Lvl) [facility] [employer]2019-05-30 04:32:00 Test Item Value Reference Range Interpretation Comments Chloride Lvl (test code = Chloride Lvl) 102 95-109 [employer]2019-05-30 04:32:00 Test Item Value Reference Range Interpretation Comments Calcium Lvl (test code = Calcium Lvl) 8.9 8.5-10.5 [facility]2019-05-30 04:32:00 Test Item Value Reference Range Interpretation Comments CO2 (test code = CO2) 28 24-32 [facility]2019-05-30 04:32:00 Test Item Value Reference Range Interpretation Comments Total Protein (test code = Total 7.4 6.4-8.4 Protein) [facility]2019-05-30 04:32:00 Test Item Value Reference Range Interpretation Comments Albumin Lvl (test code = Albumin Lvl) 3.1 3.5-5.0 [facility]2019-05-30 04:32:00 Test Item Value Reference Range Interpretation Comments AST (test code = AST) 12 See_Comment [Auto mated message] The system which ge nerated this result transmit kenroy reference range : <=37. The reference range was not used to interpr et this result as elton l/abnormal. [facility]2019-05-30 04:32:00 Test Item Value Reference Range Interpretation Comments ALT (test code = ALT) 18 See_Comment [Auto mated message] The system which ge nerated this result transmit kenroy reference range : <=65. The reference range was not used to interpr et this result as elton l/abnormal. [facility]2019-05-30 04:32:00 Test Item Value Reference Range Interpretation Comments Alk Phos (test code = Alk Phos) 101 39-136 [facility]2019-05-30 04:32:00 Test Item Value Reference Range Interpretation Comments Bili Total (test code = Bili Total) 0.2 0.2-1.3 [facility]2019-05-30 04:32:00 Test Item Value Reference Range Interpretation Comments Glucose Lvl (test code = Glucose Lvl) 96 70-99 [facility]2019-05-30 04:32:00 Test Item Value Reference Range Interpretation Comments BUN (test code = BUN) 14 7-22 [facility]2019-05-30 04:32:00 Test Item Value Reference Range Interpretation Comments Creatinine Lvl (test code = Creatinine 0.84 0.50-1.40 Lvl) [facility]2019-05-30 04:32:00 Test Item Value Reference Range Interpretation Comments Sodium Lvl (test code = Sodium Lvl) 134 135-145 [facility]2019-05-30 04:32:00 Test Item Value Reference Range Interpretation Comments AGAP (test code = AGAP) 7.8 10.0-20.0 [facility]2019-05-30 04:32:00 Test Item Value Reference Range Interpretation Comments Globulin (test code = Globulin) 4.3 2.7-4.2 [facility]2019-05-30 04:32:00 Test Item Value Reference Range Interpretation Comments B/C Ratio (test code = B/C Ratio) 17 1 6-25 [facility]2019-05-30 04:32:00 Test Item Value Reference Range Interpretation Comments A/G Ratio (test code = A/G Ratio) 0.7 1 0.7-1.6 [place] [address]2019-05-30 04:32:00 Test Item Value Reference Range Interpretation Comments S Preg (test code = S Negative *NA*(08/17/18 Preg) 11:32 PM) [facility]MogxbhnHIHYCZBLYV7427-37-52 04:32:00 Test Item Value Reference Range Interpretation Comments Microcyte (test code = 2+ *ABN*(08/17/18 Microcyte) 11:32 PM) [facility] C[id number] 04:32:00 Test Item Value Reference Range Interpretation Comments Eosinophils # (test code 0.2 See_Comment [A utomated message] The = Eosinophils #) system whic h generated this result tra nsmitted reference range : <=0.5. The reference r alee was not used to int erpret this result as normal/abnormal . [facility] CenterTdtweyeEKIYWGVPMP1470-10-24 04:32:00 Test Item Value Reference Range Interpretation Comments Monocytes # (test code 0.6 See_Comment [Aut omated message] The = Monocytes #) system which generated this result tra nsmitted reference range : <=0.8. The reference r alee was not used to int erpret this result as normal/abnormal . [facility] CenterEunxwrfMAUTRWXYPK2027-32-64 04:32:00 Test Item Value Reference Range Interpretation Comments Basophils # (test code 0.1 See_Comment [Aut omated message] The = Basophils #) system which generated this result tra nsmitted reference range : <=0.2. The reference r alee was not used to int erpret this result as normal/abnormal . [facility] CenterYmwygqsNMMKJOYYBX1531-57-46 04:32:00 Test Item Value Reference Range Interpretation Comments Lymphocytes # (test code = Lymphocytes 3.2 1.0-5.5 #) [facility] CenterRcsqwjmENRLEEZKRO2315-14-86 04:32:00 Test Item Value Reference Range Interpretation Comments Segs (test code = Segs) 52.1 45.0-75.0 [facility] CenterSlyjzmxEHLRUHMABL7697-99-97 04:32:00 Test Item Value Reference Range Interpretation Comments Lymphocytes (test code = Lymphocytes) 37.8 20.0-40.0 [facility] CenterUhttcavTLANVKKEPN9479-53-05 04:32:00 Test Item Value Reference Range Interpretation Comments Basophils (test code = 1.0 See_Comment [Aut omated message] The Basophils) system which ge nerated this result tra nsmitted reference range : <=1.0. The reference r alee was not used to int erpret this result as normal/abnormal . [facility]VrgakpqXHZKQPIKMF2076-80-75 04:32:00 Test Item Value Reference Range Interpretation Comments Eosinophils (test code = 2.1 See_Comment [A utomated message] The Eosinophils) system which ge nerated this result tra nsmitted reference range : <=4.0. The reference r alee was not used to int erpret this result as normal/abnormal . [facility] CenterXpvpkaqVEVINZYFAR9022-08-27 04:32:00 Test Item Value Reference Range Interpretation Comments Monocytes (test code = Monocytes) 7.0 2.0-12.0 [facility] CenterQvcmwzzKBEWSMNEYT8149-63-03 04:32:00 Test Item Value Reference Range Interpretation Comments Neutrophils # (test code = Neutrophils 4.4 1.5-8.1 #) [facility] CenterGjeuogvUHSZIQFPFD0021-13-33 04:32:00 Test Item Value Reference Range Interpretation Comments PTT (test code = PTT) 25.2 s 22.9-35.8 [facility] CenterIdoukpvLQAWZPEBRW5126-10-97 04:32:00 Test Item Value Reference Range Interpretation Comments INR (test code = INR) 0.95 1 0.85-1.17 [facility] CenterBdpbheyVRXHZYDYLP4991-03-29 04:32:00 Test Item Value Reference Range Interpretation Comments PT (test code = PT) 12.5 s 12.0-14.7 [facility] CenterGbulvexZOMXNWTPHB3333-25-55 04:32:00 Test Item Value Reference Range Interpretation Comments Hgb (test code = Hgb) 9.3 12.0-16.0 [facility] CenterEmvjwnuJHDDBYZRWM6334-19-26 04:32:00 Test Item Value Reference Range Interpretation Comments Hct (test code = Hct) 30.0 36.0-48.0 [facility] CenterWlvlpmtWVGPZYEGXF2597-92-19 04:32:00 Test Item Value Reference Range Interpretation Comments MCH (test code = MCH) 21.8 pg 27.0-31.0 [facility] CenterPcrkjfyQKRVGIRJQK5556-71-24 04:32:00 Test Item Value Reference Range Interpretation Comments MCV (test code = MCV) 70.2 80.0-98.0 [facility] CenterCzahgkvCYKXGAAGVM4182-95-30 04:32:00 Test Item Value Reference Range Interpretation Comments Platelet (test code = Platelet) 333 133-450 [facility] CenterVmskekbSRFBWOFKKI6950-08-70 04:32:00 Test Item Value Reference Range Interpretation Comments RDW (test code = RDW) 17.9 11.5-14.5 [facility] CenterOeaskrcAKGHTUMRTM9507-08-15 04:32:00 Test Item Value Reference Range Interpretation Comments MCHC (test code = MCHC) 31.0 32.0-36.0 [facility] CenterSzflnycWCBRGTTVWY3875-12-55 04:32:00 Test Item Value Reference Range Interpretation Comments MPV (test code = MPV) 7.3 7.4-10.4 [facility] CenterKjlhpujZRHUKCJUMC3264-25-29 04:32:00 Test Item Value Reference Range Interpretation Comments RBC (test code = RBC) 4.28 4.20-5.40 [facility] CenterSnlgsthXLXXQXWVLV5887-99-99 04:32:00 Test Item Value Reference Range Interpretation Comments WBC (test code = WBC) 8.5 3.7-10.4 [facility]2019-05-30 04:32:00 Test Item Value Reference Range Interpretation Comments UA WBC (test code = 1 See_Comment [Automa kenroy message] The UA WBC) system which ge nerated this result transmit kenroy reference range : <=5. The reference range was not used to interpr et this result as elton l/abnormal. [facility] AND [id number] 04:32:00 Test Item Value Reference Range Interpretation Comments UA RBC (test code = 3 See_Comment [Automa kenroy message] The UA RBC) system which ge nerated this result transmit kenroy reference range : <=2. The reference range was not used to interpr et this result as elton l/abnormal. [facility] AND [id number] 04:32:00 Test Item Value Reference Range Interpretation Comments UA Leuk Est (test Negative (08/17/18 11:32 code = UA Leuk Est) PM) [facility] AND [id number] 04:32:00 Test Item Value Reference Range Interpretation Comments UA Sq Epi (test code = UA Sq Occasional /LPF Epi) [facility] AND [id number] 04:32:00 Test Item Value Reference Range Interpretation Comments UA Mucus (test code = UA Mucus) Few /LPF [facility] AND [id number] 04:32:00 Test Item Value Reference Range Interpretation Comments UA Color (test code = Yellow *NA*(08/17/18 UA Color) 11:32 PM) [facility] AND [id number] 04:32:00 Test Item Value Reference Range Interpretation Comments UA Urobilinogen (test code = UA <=1.0 mg/dL 0.1-1.0 Urobilinogen) [facility] AND [id number] 04:32:00 Test Item Value Reference Range Interpretation Comments UA Nitrite (test code Negative (08/17/18 11:32 = UA Nitrite) PM) [facility] AND [id number] 04:32:00 Test Item Value Reference Range Interpretation Comments UA Bili (test code = Negative *NA*(08/17/18 UA Bili) 11:32 PM) [facility] AND [id number] 04:32:00 Test Item Value Reference Range Interpretation Comments UA Blood (test code = Negative (08/17/18 11:32 UA Blood) PM) [facility] AND [id number] 04:32:00 Test Item Value Reference Range Interpretation Comments UA Ketones (test code Negative *NA*(08/17/18 = UA Ketones) 11:32 PM) [facility] AND [id number] 04:32:00 Test Item Value Reference Range Interpretation Comments UA Protein (test code Negative (08/17/18 11:32 = UA Protein) PM) [facility] AND [id number] 04:32:00 Test Item Value Reference Range Interpretation Comments UA Glucose (test code Negative *NA*(08/17/18 = UA Glucose) 11:32 PM) [facility] AND [id number] 04:32:00 Test Item Value Reference Range Interpretation Comments UA Spec Grav (test code = UA Spec 1.018 1 Grav) [facility] AND [id number] 04:32:00 Test Item Value Reference Range Interpretation Comments UA pH (test code = UA pH) 5.0 1 5.0-8.0 [facility] AND [id number] 04:32:00 Test Item Value Reference Range Interpretation Comments UA Turbidity (test code = Clear (08/17/18 11:32 UA Turbidity) PM) [facility]ripCARDI[facility] [id number] 04:32:00 Test Item Value Reference Range Interpretation Comments BNP (test code = BNP) 65 [facility] CenterCytoSolvAC [id number] 04:32:00 Test Item Value Reference Range Interpretation Comments Troponin-I (test code no gt See_Comment [Auto mated message] The = Troponin-I) system which g enerated this result transmit kenroy reference range : <=0.40. The reference r alee was not used to interpr et this result as elton l/abnormal. [facility] HydrocapsuleAC [id number] 04:32:00 Test Item Value Reference Range Interpretation Comments Total CK (test code = Total CK) 40 12-191 [facility] ComCam [id number] 04:32:00 Test Item Value Reference Range Interpretation Comments eGFR (test code = eGFR) 88 [facility] [employer] [id number] 04:32:00 Test Item Value Reference Range Interpretation Comments Potassium Lvl (test code = Potassium 3.8 3.5-5.1 Lvl) [facility] [employer] [id number] 04:32:00 Test Item Value Reference Range Interpretation Comments Chloride Lvl (test code = Chloride Lvl) 102 95-109 [facility]2019-05-30 04:32:00 Test Item Value Reference Range Interpretation Comments Calcium Lvl (test code = Calcium Lvl) 8.9 8.5-10.5 [facility]2019-05-30 04:32:00 Test Item Value Reference Range Interpretation Comments CO2 (test code = CO2) 28 24-32 [facility]2019-05-30 04:32:00 Test Item Value Reference Range Interpretation Comments Total Protein (test code = Total 7.4 6.4-8.4 Protein) [place] 200509-05-30 04:32:00 Test Item Value Reference Range Interpretation Comments Albumin Lvl (test code = Albumin Lvl) 3.1 3.5-5.0 [facility]2019-05-30 04:32:00 Test Item Value Reference Range Interpretation Comments AST (test code = AST) 12 See_Comment [Auto mated message] The system which nerated this result transmit kenroy reference range : <=37. The reference range was not used to interpr et this result as elton l/abnormal. [facility]2019-05-30 04:32:00 Test Item Value Reference Range Interpretation Comments ALT (test code = ALT) 18 See_Comment [Auto mated message] The system which ge nerated this result transmit kenroy reference range : <=65. The reference range was not used to interpr et this result as elton l/abnormal. [facility]2019-05-30 04:32:00 Test Item Value Reference Range Interpretation Comments Alk Phos (test code = Alk Phos) 101 39-136 [facility]2019-05-30 04:32:00 Test Item Value Reference Range Interpretation Comments Bili Total (test code = Bili Total) 0.2 0.2-1.3 [facility]2019-05-30 04:32:00 Test Item Value Reference Range Interpretation Comments Glucose Lvl (test code = Glucose Lvl) 96 70-99 [facility]2019-05-30 04:32:00 Test Item Value Reference Range Interpretation Comments BUN (test code = BUN) 14 7-22 [facility]2019-05-30 04:32:00 Test Item Value Reference Range Interpretation Comments Creatinine Lvl (test code = Creatinine 0.84 0.50-1.40 Lvl) [facility]2019-05-30 04:32:00 Test Item Value Reference Range Interpretation Comments Sodium Lvl (test code = Sodium Lvl) 134 135-145 [facility]2019-05-30 04:32:00 Test Item Value Reference Range Interpretation Comments AGAP (test code = AGAP) 7.8 10.0-20.0 [facility]2019-05-30 04:32:00 Test Item Value Reference Range Interpretation Comments Globulin (test code = Globulin) 4.3 2.7-4.2 [facility]2019-05-30 04:32:00 Test Item Value Reference Range Interpretation Comments B/C Ratio (test code = B/C Ratio) 17 1 6-25 [facility]2019-05-30 04:32:00 Test Item Value Reference Range Interpretation Comments A/G Ratio (test code = A/G Ratio) 0.7 1 0.7-1.6 [facility]QuvsicxWFKYGZYIEKQLI4744-60-77 04:32:00 Test Item Value Reference Range Interpretation Comments S Preg (test code = S Negative *NA*(08/17/18 Preg) 11:32 PM) [facility] CenterEtixfphKRODIPXZBP2084-34-82 04:32:00 Test Item Value Reference Range Interpretation Comments Microcyte (test code = 2+ *ABN*(08/17/18 Microcyte) 11:32 PM) [facility] CenterPwmnvpsCDBZFDQEHS7886-20-33 04:32:00 Test Item Value Reference Range Interpretation Comments Eosinophils # (test code 0.2 See_Comment [A utomated message] The = Eosinophils #) system whic h generated this result tra nsmitted reference range : <=0.5. The reference r alee was not used to int erpret this result as normal/abnormal . [facility] CenterWyxinetBEWVRYVCKQ3273-09-21 04:32:00 Test Item Value Reference Range Interpretation Comments Monocytes # (test code 0.6 See_Comment [Aut omated message] The = Monocytes #) system which generated this result tra nsmitted reference range : <=0.8. The reference r alee was not used to int erpret this result as normal/abnormal . [facility] CenterQuvthrlPGLNRRNNYB0193-41-36 04:32:00 Test Item Value Reference Range Interpretation Comments Basophils # (test code 0.1 See_Comment [Aut omated message] The = Basophils #) system which generated this result tra nsmitted reference range : <=0.2. The reference r alee was not used to int erpret this result as normal/abnormal . [facility] CenterWzakxgyAMBMAUQAQX0800-77-73 04:32:00 Test Item Value Reference Range Interpretation Comments Lymphocytes # (test code = Lymphocytes 3.2 1.0-5.5 #) [facility] CenterWwzmppmVFFGLQRSXK8621-76-13 04:32:00 Test Item Value Reference Range Interpretation Comments Segs (test code = Segs) 52.1 45.0-75.0 [facility] CenterIrfpprkEXIPBGUZAQ5943-18-68 04:32:00 Test Item Value Reference Range Interpretation Comments Lymphocytes (test code = Lymphocytes) 37.8 20.0-40.0 [facility] CenterFyhgjxoLUHKIEWQYG0366-35-84 04:32:00 Test Item Value Reference Range Interpretation Comments Basophils (test code = 1.0 See_Comment [Aut omated message] The Basophils) system which ge nerated this result tra nsmitted reference range : <=1.0. The reference r alee was not used to int erpret this result as normal/abnormal . [facility] CenterJzbnjirUMBOSSQBFG7820-30-79 04:32:00 Test Item Value Reference Range Interpretation Comments Eosinophils (test code = 2.1 See_Comment [A utomated message] The Eosinophils) system which ge nerated this result tra nsmitted reference range : <=4.0. The reference r alee was not used to int erpret this result as normal/abnormal . [facility] CenterVcgnozmETODWYNMQO4049-29-62 04:32:00 Test Item Value Reference Range Interpretation Comments Monocytes (test code = Monocytes) 7.0 2.0-12.0 [facility] CenterPnpikaiQESXSOYAZR2925-22-45 04:32:00 Test Item Value Reference Range Interpretation Comments Neutrophils # (test code = Neutrophils 4.4 1.5-8.1 #) [facility] CenterXoytsusDGZPVEFWCD9870-42-40 04:32:00 Test Item Value Reference Range Interpretation Comments PTT (test code = PTT) 25.2 s 22.9-35.8 [facility] CenterNzvukimIWIKEYJTHL5577-38-74 04:32:00 Test Item Value Reference Range Interpretation Comments INR (test code = INR) 0.95 1 0.85-1.17 [facility]AhuifhhZBIWYYTZOF7597-11-64 04:32:00 Test Item Value Reference Range Interpretation Comments PT (test code = PT) 12.5 s 12.0-14.7 [facility] HospitalSyamasbWWVNWDPAMH2516-63-73 04:32:00 Test Item Value Reference Range Interpretation Comments Hgb (test code = Hgb) 9.3 12.0-16.0 [facility] HospitalQumbcleBNLFOLVEEJ5276-25-61 04:32:00 Test Item Value Reference Range Interpretation Comments Hct (test code = Hct) 30.0 36.0-48.0 [facility] HospitalChacrwkUJUUNAEWWE0215-89-35 04:32:00 Test Item Value Reference Range Interpretation Comments MCH (test code = MCH) 21.8 pg 27.0-31.0 [facility] HospitalZwiwdluOBKPDUOYHY9021-30-06 04:32:00 Test Item Value Reference Range Interpretation Comments MCV (test code = MCV) 70.2 80.0-98.0 [facility] HospitalGnokdlaAAZYCJKXTZ4772-16-44 04:32:00 Test Item Value Reference Range Interpretation Comments Platelet (test code = Platelet) 333 133-450 [facility] HospitalMxqmixkOTWAXYWRYS1371-95-49 04:32:00 Test Item Value Reference Range Interpretation Comments RDW (test code = RDW) 17.9 11.5-14.5 [facility] HospitalDrtljinLJMSLVBOYW8976-90-05 04:32:00 Test Item Value Reference Range Interpretation Comments MCHC (test code = MCHC) 31.0 32.0-36.0 [facility] HospitalQclllbfYIPCVGKOAF5182-60-33 04:32:00 Test Item Value Reference Range Interpretation Comments MPV (test code = MPV) 7.3 7.4-10.4 [facility] HospitalHngdhwxKCRBDUSUBR4511-53-85 04:32:00 Test Item Value Reference Range Interpretation Comments RBC (test code = RBC) 4.28 4.20-5.40 [facility] HospitalZjheukyHBDMFJEUTH7637-73-91 04:32:00 Test Item Value Reference Range Interpretation Comments WBC (test code = WBC) 8.5 3.7-10.4 [facility]2019-05-30 04:32:00 Test Item Value Reference Range Interpretation Comments UA WBC (test code = 1 See_Comment [Automa kenroy message] The UA WBC) system which ge nerated this result transmit kenroy reference range : <=5. The reference range was not used to interpr et this result as elton l/abnormal. [facility] AND [id number] 04:32:00 Test Item Value Reference Range Interpretation Comments UA RBC (test code = 3 See_Comment [Automa kenroy message] The UA RBC) system which ge nerated this result transmit kenroy reference range : <=2. The reference range was not used to interpr et this result as elton l/abnormal. [facility] AND [id number] 04:32:00 Test Item Value Reference Range Interpretation Comments UA Leuk Est (test Negative (08/17/18 11:32 code = UA Leuk Est) PM) [facility] AND [id number] 04:32:00 Test Item Value Reference Range Interpretation Comments UA Sq Epi (test code = UA Sq Occasional /LPF Epi) [facility] AND [id number] 04:32:00 Test Item Value Reference Range Interpretation Comments UA Mucus (test code = UA Mucus) Few /LPF [facility] AND [id number] 04:32:00 Test Item Value Reference Range Interpretation Comments UA Color (test code = Yellow *NA*(08/17/18 UA Color) 11:32 PM) [facility] AND [id number] 04:32:00 Test Item Value Reference Range Interpretation Comments UA Urobilinogen (test code = UA <=1.0 mg/dL 0.1-1.0 Urobilinogen) [facility] AND [id number] 04:32:00 Test Item Value Reference Range Interpretation Comments UA Nitrite (test code Negative (08/17/18 11:32 = UA Nitrite) PM) [facility] AND [id number] 04:32:00 Test Item Value Reference Range Interpretation Comments UA Bili (test code = Negative *NA*(08/17/18 UA Bili) 11:32 PM) [facility] AND [id number] 04:32:00 Test Item Value Reference Range Interpretation Comments UA Blood (test code = Negative (08/17/18 11:32 UA Blood) PM) [facility] AND [id number] 04:32:00 Test Item Value Reference Range Interpretation Comments UA Ketones (test code Negative *NA*(08/17/18 = UA Ketones) 11:32 PM) [facility]ann[facility] [id number] 04:32:00 Test Item Value Reference Range Interpretation Comments UA Protein (test code Negative (08/17/18 11:32 = UA Protein) PM) [facility]ann[facility] [id number] 04:32:00 Test Item Value Reference Range Interpretation Comments UA Glucose (test code Negative *NA*(08/17/18 = UA Glucose) 11:32 PM) [facility] AND [id number] 04:32:00 Test Item Value Reference Range Interpretation Comments UA Spec Grav (test code = UA Spec 1.018 1 Grav) [facility] AND [id number] 04:32:00 Test Item Value Reference Range Interpretation Comments UA pH (test code = UA pH) 5.0 1 5.0-8.0 [facility] AND [id number] 04:32:00 Test Item Value Reference Range Interpretation Comments UA Turbidity (test code = Clear (08/17/18 11:32 UA Turbidity) PM) [facility] CenterWallStripCARDIAC [id number] 04:32:00 Test Item Value Reference Range Interpretation Comments BNP (test code = BNP) 65 [facility] CenterannCARDIAC [id number] 04:32:00 Test Item Value Reference Range Interpretation Comments Troponin-I (test code no gt See_Comment [Auto mated message] The = Troponin-I) system which g enerated this result transmit kenroy reference range : <=0.40. The reference r alee was not used to interpr et this result as elton l/abnormal. [facility] EnjoiCARDIAC [id number] 04:32:00 Test Item Value Reference Range Interpretation Comments Total CK (test code = Total CK) 40 12-191 [facility] ComCam [id number] 04:32:00 Test Item Value Reference Range Interpretation Comments eGFR (test code = eGFR) 88 [facility] CenterBlitz X [employer] [id number] 04:32:00 Test Item Value Reference Range Interpretation Comments Potassium Lvl (test code = Potassium 3.8 3.5-5.1 Lvl) [facility]2019-05-30 04:32:00 Test Item Value Reference Range Interpretation Comments Chloride Lvl (test code = Chloride Lvl) 102 95-109 [facility]2019-05-30 04:32:00 Test Item Value Reference Range Interpretation Comments Calcium Lvl (test code = Calcium Lvl) 8.9 8.5-10.5 [facility]2019-05-30 04:32:00 Test Item Value Reference Range Interpretation Comments CO2 (test code = CO2) 28 24-32 [facility]2019-05-30 04:32:00 Test Item Value Reference Range Interpretation Comments Total Protein (test code = Total 7.4 6.4-8.4 Protein) [facility]2019-05-30 04:32:00 Test Item Value Reference Range Interpretation Comments Albumin Lvl (test code = Albumin Lvl) 3.1 3.5-5.0 [facility]2019-05-30 04:32:00 Test Item Value Reference Range Interpretation Comments AST (test code = AST) 12 See_Comment [Auto mated message] The system which ge nerated this result transmit kenroy reference range : <=37. The reference range was not used to interpr et this result as elton l/abnormal. [facility]2019-05-30 04:32:00 Test Item Value Reference Range Interpretation Comments ALT (test code = ALT) 18 See_Comment [Auto mated message] The system which ge nerated this result transmit kenroy reference range : <=65. The reference range was not used to interpr et this result as elton l/abnormal. [facility]2019-05-30 04:32:00 Test Item Value Reference Range Interpretation Comments Alk Phos (test code = Alk Phos) 101 39-136 [facility]2019-05-30 04:32:00 Test Item Value Reference Range Interpretation Comments Bili Total (test code = Bili Total) 0.2 0.2-1.3 [facility]2019-05-30 04:32:00 Test Item Value Reference Range Interpretation Comments Glucose Lvl (test code = Glucose Lvl) 96 70-99 [facility]2019-05-30 04:32:00 Test Item Value Reference Range Interpretation Comments BUN (test code = BUN) 14 7-22 [facility]2019-05-30 04:32:00 Test Item Value Reference Range Interpretation Comments Creatinine Lvl (test code = Creatinine 0.84 0.50-1.40 Lvl) [facility]2019-05-30 04:32:00 Test Item Value Reference Range Interpretation Comments Sodium Lvl (test code = Sodium Lvl) 134 135-145 [facility]2019-05-30 04:32:00 Test Item Value Reference Range Interpretation Comments AGAP (test code = AGAP) 7.8 10.0-20.0 [facility]2019-05-30 04:32:00 Test Item Value Reference Range Interpretation Comments Globulin (test code = Globulin) 4.3 2.7-4.2 [facility]2019-05-30 04:32:00 Test Item Value Reference Range Interpretation Comments B/C Ratio (test code = B/C Ratio) 17 1 6-25 [facility]2019-05-30 04:32:00 Test Item Value Reference Range Interpretation Comments A/G Ratio (test code = A/G Ratio) 0.7 1 0.7-1.6 [facility]JozjkseTNCBABBAYJVTQ6796-05-42 04:32:00 Test Item Value Reference Range Interpretation Comments S Preg (test code = S Negative *NA*(08/17/18 Preg) 11:32 PM) [facility] CenterLuhqachYGSJEMKAZP8549-18-52 04:32:00 Test Item Value Reference Range Interpretation Comments Microcyte (test code = 2+ *ABN*(08/17/18 Microcyte) 11:32 PM) [facility] CenterZffqfrzBYXUQOKPDZ9189-30-41 04:32:00 Test Item Value Reference Range Interpretation Comments Eosinophils # (test code 0.2 See_Comment [A utomated message] The = Eosinophils #) system whic h generated this result tra nsmitted reference range : <=0.5. The reference r alee was not used to int erpret this result as normal/abnormal . [facility] CenterOshyzceDQTIMUAUGS8597-65-63 04:32:00 Test Item Value Reference Range Interpretation Comments Monocytes # (test code 0.6 See_Comment [Aut omated message] The = Monocytes #) system which generated this result tra nsmitted reference range : <=0.8. The reference r alee was not used to int erpret this result as normal/abnormal . [facility] CenterEqkykxwBBKEPPMEHT8186-46-46 04:32:00 Test Item Value Reference Range Interpretation Comments Basophils # (test code 0.1 See_Comment [Aut omated message] The = Basophils #) system which generated this result tra nsmitted reference range : <=0.2. The reference r alee was not used to int erpret this result as normal/abnormal . [facility] CenterCkfkqkwBPHDWKMJJQ0417-06-94 04:32:00 Test Item Value Reference Range Interpretation Comments Lymphocytes # (test code = Lymphocytes 3.2 1.0-5.5 #) [facility] CenterYfwtmwmZMYHXFNOZP0378-44-49 04:32:00 Test Item Value Reference Range Interpretation Comments Segs (test code = Segs) 52.1 45.0-75.0 [facility] CenterSivxaikKEBKXHOUYK8337-33-62 04:32:00 Test Item Value Reference Range Interpretation Comments Lymphocytes (test code = Lymphocytes) 37.8 20.0-40.0 [facility] CenterDpyheroJZDGKGBPZZ3617-62-34 04:32:00 Test Item Value Reference Range Interpretation Comments Basophils (test code = 1.0 See_Comment [Aut omated message] The Basophils) system which ge nerated this result tra nsmitted reference range : <=1.0. The reference r alee was not used to int erpret this result as normal/abnormal . [facility]FthikefVBOIBDYRLF2326-03-84 04:32:00 Test Item Value Reference Range Interpretation Comments Eosinophils (test code = 2.1 See_Comment [A utomated message] The Eosinophils) system which ge nerated this result tra nsmitted reference range : <=4.0. The reference r alee was not used to int erpret this result as normal/abnormal . [facility] CenterNouyggpQDAAOCTSJX6296-15-69 04:32:00 Test Item Value Reference Range Interpretation Comments Monocytes (test code = Monocytes) 7.0 2.0-12.0 [facility] CenterVdmpwlwPQBGFCNELR5121-91-94 04:32:00 Test Item Value Reference Range Interpretation Comments Neutrophils # (test code = Neutrophils 4.4 1.5-8.1 #) [facility] CenterGofyhmiJAGYDCUGIP9231-54-59 04:32:00 Test Item Value Reference Range Interpretation Comments PTT (test code = PTT) 25.2 s 22.9-35.8 [facility]TsgthoqESVETMLIFU1384-76-59 04:32:00 Test Item Value Reference Range Interpretation Comments INR (test code = INR) 0.95 1 0.85-1.17 [facility] HospitalMwbhucuAVMHUKPPQG3727-10-25 04:32:00 Test Item Value Reference Range Interpretation Comments PT (test code = PT) 12.5 s 12.0-14.7 [facility] HospitalWbokebrUPWAWUSRYA9617-58-55 04:32:00 Test Item Value Reference Range Interpretation Comments Hgb (test code = Hgb) 9.3 12.0-16.0 [facility] HospitalZhzrncrTMBHZHROBG6330-38-96 04:32:00 Test Item Value Reference Range Interpretation Comments Hct (test code = Hct) 30.0 36.0-48.0 [facility] HospitalMkgtmszPJVYFXEKDS7687-53-45 04:32:00 Test Item Value Reference Range Interpretation Comments MCH (test code = MCH) 21.8 pg 27.0-31.0 [facility] HospitalEfmzweqZPCMNHLQBV2959-36-18 04:32:00 Test Item Value Reference Range Interpretation Comments MCV (test code = MCV) 70.2 80.0-98.0 [facility] HospitalOhuhhdmQGVWQLLLGW5679-05-18 04:32:00 Test Item Value Reference Range Interpretation Comments Platelet (test code = Platelet) 333 133-450 [facility] HospitalKjcdfclPGZTGPLQZL9420-51-97 04:32:00 Test Item Value Reference Range Interpretation Comments RDW (test code = RDW) 17.9 11.5-14.5 [facility] HospitalFwgmzqhNRMJOPNVEQ2782-26-37 04:32:00 Test Item Value Reference Range Interpretation Comments MCHC (test code = MCHC) 31.0 32.0-36.0 [facility] HospitalQcmafqdTAZWOQFNXH1375-03-84 04:32:00 Test Item Value Reference Range Interpretation Comments MPV (test code = MPV) 7.3 7.4-10.4 [facility] HospitalMlkudsmCAKWILJIZA4663-80-80 04:32:00 Test Item Value Reference Range Interpretation Comments RBC (test code = RBC) 4.28 4.20-5.40 [facility] HospitalOdwspnyNHSMDKRSPO9090-41-41 04:32:00 Test Item Value Reference Range Interpretation Comments WBC (test code = WBC) 8.5 3.7-10.4 [facility]2019-05-30 04:32:00 Test Item Value Reference Range Interpretation Comments UA WBC (test code = 1 See_Comment [Automa kenroy message] The UA WBC) system which ge nerated this result transmit kenroy reference range : <=5. The reference range was not used to interpr et this result as elton l/abnormal. [facility] AND [id number] 04:32:00 Test Item Value Reference Range Interpretation Comments UA RBC (test code = 3 See_Comment [Automa kenroy message] The UA RBC) system which ge nerated this result transmit kenroy reference range : <=2. The reference range was not used to interpr et this result as elton l/abnormal. [facility] AND [id number] 04:32:00 Test Item Value Reference Range Interpretation Comments UA Leuk Est (test Negative (08/17/18 11:32 code = UA Leuk Est) PM) [facility] AND [id number] 04:32:00 Test Item Value Reference Range Interpretation Comments UA Sq Epi (test code = UA Sq Occasional /LPF Epi) [facility] AND [id number] 04:32:00 Test Item Value Reference Range Interpretation Comments UA Mucus (test code = UA Mucus) Few /LPF [facility] AND [id number] 04:32:00 Test Item Value Reference Range Interpretation Comments UA Color (test code = Yellow *NA*(08/17/18 UA Color) 11:32 PM) [facility] AND [id number] 04:32:00 Test Item Value Reference Range Interpretation Comments UA Urobilinogen (test code = UA <=1.0 mg/dL 0.1-1.0 Urobilinogen) [facility] AND [id number] 04:32:00 Test Item Value Reference Range Interpretation Comments UA Nitrite (test code Negative (08/17/18 11:32 = UA Nitrite) PM) [facility] AND [id number] 04:32:00 Test Item Value Reference Range Interpretation Comments UA Bili (test code = Negative *NA*(08/17/18 UA Bili) 11:32 PM) [facility] AND [id number] 04:32:00 Test Item Value Reference Range Interpretation Comments UA Blood (test code = Negative (08/17/18 11:32 UA Blood) PM) [facility] AND [id number] 04:32:00 Test Item Value Reference Range Interpretation Comments UA Ketones (test code Negative *NA*(08/17/18 = UA Ketones) 11:32 PM) [facility] AND [id number] 04:32:00 Test Item Value Reference Range Interpretation Comments UA Protein (test code Negative (08/17/18 11:32 = UA Protein) PM) [facility] AND [id number] 04:32:00 Test Item Value Reference Range Interpretation Comments UA Glucose (test code Negative *NA*(08/17/18 = UA Glucose) 11:32 PM) [facility] AND [id number] 04:32:00 Test Item Value Reference Range Interpretation Comments UA Spec Grav (test code = UA Spec 1.018 1 Grav) [facility] AND [id number] 04:32:00 Test Item Value Reference Range Interpretation Comments UA pH (test code = UA pH) 5.0 1 5.0-8.0 [facility] AND [id number] 04:32:00 Test Item Value Reference Range Interpretation Comments UA Turbidity (test code = Clear (08/17/18 11:32 UA Turbidity) PM) [facility]to[facility] [id number] 04:32:00 Test Item Value Reference Range Interpretation Comments BNP (test code = BNP) 65 [facility] CenterCytoSolvAC [id number] 04:32:00 Test Item Value Reference Range Interpretation Comments Troponin-I (test code no gt See_Comment [Auto mated message] The = Troponin-I) system which g enerated this result transmit kenroy reference range : <=0.40. The reference r alee was not used to interpr et this result as elton l/abnormal. [facility] CenterCytoSolvAC [id number] 04:32:00 Test Item Value Reference Range Interpretation Comments Total CK (test code = Total CK) 40 12-191 [facility] [employer] [id number] 04:32:00 Test Item Value Reference Range Interpretation Comments eGFR (test code = eGFR) 88 [facility] [employer] [id number] 04:32:00 Test Item Value Reference Range Interpretation Comments Potassium Lvl (test code = Potassium 3.8 3.5-5.1 Lvl) [facility]2019-05-30 04:32:00 Test Item Value Reference Range Interpretation Comments Chloride Lvl (test code = Chloride Lvl) 102 95-109 [facility]2019-05-30 04:32:00 Test Item Value Reference Range Interpretation Comments Calcium Lvl (test code = Calcium Lvl) 8.9 8.5-10.5 [facility]2019-05-30 04:32:00 Test Item Value Reference Range Interpretation Comments CO2 (test code = CO2) 28 24-32 [facility]2019-05-30 04:32:00 Test Item Value Reference Range Interpretation Comments Total Protein (test code = Total 7.4 6.4-8.4 Protein) [facility]2019-05-30 04:32:00 Test Item Value Reference Range Interpretation Comments Albumin Lvl (test code = Albumin Lvl) 3.1 3.5-5.0 [facility]2019-05-30 04:32:00 Test Item Value Reference Range Interpretation Comments AST (test code = AST) 12 See_Comment [Auto mated message] The system which ge nerated this result transmit kenroy reference range : <=37. The reference range was not used to interpr et this result as elton l/abnormal. [facility]2019-05-30 04:32:00 Test Item Value Reference Range Interpretation Comments ALT (test code = ALT) 18 See_Comment [Auto mated message] The system which ge nerated this result transmit kenroy reference range : <=65. The reference range was not used to interpr et this result as elton l/abnormal. [facility]2019-05-30 04:32:00 Test Item Value Reference Range Interpretation Comments Alk Phos (test code = Alk Phos) 101 39-136 [facility]2019-05-30 04:32:00 Test Item Value Reference Range Interpretation Comments Bili Total (test code = Bili Total) 0.2 0.2-1.3 [facility]2019-05-30 04:32:00 Test Item Value Reference Range Interpretation Comments Glucose Lvl (test code = Glucose Lvl) 96 70-99 [facility]2019-05-30 04:32:00 Test Item Value Reference Range Interpretation Comments BUN (test code = BUN) 14 7-22 [facility]2019-05-30 04:32:00 Test Item Value Reference Range Interpretation Comments Creatinine Lvl (test code = Creatinine 0.84 0.50-1.40 Lvl) [facility]2019-05-30 04:32:00 Test Item Value Reference Range Interpretation Comments Sodium Lvl (test code = Sodium Lvl) 134 135-145 [facility]2019-05-30 04:32:00 Test Item Value Reference Range Interpretation Comments AGAP (test code = AGAP) 7.8 10.0-20.0 [facility]2019-05-30 04:32:00 Test Item Value Reference Range Interpretation Comments Globulin (test code = Globulin) 4.3 2.7-4.2 [facility]2019-05-30 04:32:00 Test Item Value Reference Range Interpretation Comments B/C Ratio (test code = B/C Ratio) 17 1 6-25 [facility]2019-05-30 04:32:00 Test Item Value Reference Range Interpretation Comments A/G Ratio (test code = A/G Ratio) 0.7 1 0.7-1.6 [place] [address]2019-05-30 04:32:00 Test Item Value Reference Range Interpretation Comments S Preg (test code = S Negative *NA*(08/17/18 Preg) 11:32 PM) [facility] CenterGnlpapwQYMDYMFZBX1791-36-33 04:32:00 Test Item Value Reference Range Interpretation Comments Microcyte (test code = 2+ *ABN*(08/17/18 Microcyte) 11:32 PM) [facility] CenterYayunvlCYMBKXQGAE4077-84-76 04:32:00 Test Item Value Reference Range Interpretation Comments Eosinophils # (test code 0.2 See_Comment [A utomated message] The = Eosinophils #) system whic h generated this result tra nsmitted reference range : <=0.5. The reference r alee was not used to int erpret this result as normal/abnormal . [facility] CenterHloljxtTZSSLNTYLG4097-71-36 04:32:00 Test Item Value Reference Range Interpretation Comments Monocytes # (test code 0.6 See_Comment [Aut omated message] The = Monocytes #) system which generated this result tra nsmitted reference range : <=0.8. The reference r alee was not used to int erpret this result as normal/abnormal . [facility] CenterBllubmuJQWHAFUMHU8161-75-11 04:32:00 Test Item Value Reference Range Interpretation Comments Basophils # (test code 0.1 See_Comment [Aut omated message] The = Basophils #) system which generated this result tra nsmitted reference range : <=0.2. The reference r alee was not used to int erpret this result as normal/abnormal . [facility] CenterApitptfTUPXXEKQYA5612-54-94 04:32:00 Test Item Value Reference Range Interpretation Comments Lymphocytes # (test code = Lymphocytes 3.2 1.0-5.5 #) [facility] CenterMqfiaomXUPJRIMCYP6465-13-78 04:32:00 Test Item Value Reference Range Interpretation Comments Segs (test code = Segs) 52.1 45.0-75.0 [facility] CenterUpooivaMCIZMCDIKH1026-65-12 04:32:00 Test Item Value Reference Range Interpretation Comments Lymphocytes (test code = Lymphocytes) 37.8 20.0-40.0 [facility] CenterNlmobtyNAGCTQEZXU0690-25-35 04:32:00 Test Item Value Reference Range Interpretation Comments Basophils (test code = 1.0 See_Comment [Aut omated message] The Basophils) system which ge nerated this result tra nsmitted reference range : <=1.0. The reference r alee was not used to int erpret this result as normal/abnormal . [facility] CenterLdrtydkINQAAJMDPE8842-35-51 04:32:00 Test Item Value Reference Range Interpretation Comments Eosinophils (test code = 2.1 See_Comment [A utomated message] The Eosinophils) system which ge nerated this result tra nsmitted reference range : <=4.0. The reference r alee was not used to int erpret this result as normal/abnormal . [facility] CenterNtjfhsnVACHPCRFXS0442-40-22 04:32:00 Test Item Value Reference Range Interpretation Comments Monocytes (test code = Monocytes) 7.0 2.0-12.0 [facility] CenterUgjsfbkEEVBLJZDXZ7072-65-22 04:32:00 Test Item Value Reference Range Interpretation Comments Neutrophils # (test code = Neutrophils 4.4 1.5-8.1 #) [facility] CenterBsatmzxJAAGAJURXU1902-50-30 04:32:00 Test Item Value Reference Range Interpretation Comments PTT (test code = PTT) 25.2 s 22.9-35.8 [facility] CenterEkuduvbLNVCHTBUHV5582-20-92 04:32:00 Test Item Value Reference Range Interpretation Comments INR (test code = INR) 0.95 1 0.85-1.17 [facility] CenterSprlrpvIRQUOWLZUR4021-19-50 04:32:00 Test Item Value Reference Range Interpretation Comments PT (test code = PT) 12.5 s 12.0-14.7 [facility] CenterGcyrvocYHYNTIAWLY7611-64-49 04:32:00 Test Item Value Reference Range Interpretation Comments Hgb (test code = Hgb) 9.3 12.0-16.0 [facility] CenterGqweatvLRSQQYOWHH1345-00-54 04:32:00 Test Item Value Reference Range Interpretation Comments Hct (test code = Hct) 30.0 36.0-48.0 [facility] CenterHygpxhtHBYBUYKTES0612-53-21 04:32:00 Test Item Value Reference Range Interpretation Comments MCH (test code = MCH) 21.8 pg 27.0-31.0 [facility] CenterJmanxbbNNRBTEBLLQ2772-00-42 04:32:00 Test Item Value Reference Range Interpretation Comments MCV (test code = MCV) 70.2 80.0-98.0 [facility] CenterCvxvxssANCRQBYVJT3387-66-70 04:32:00 Test Item Value Reference Range Interpretation Comments Platelet (test code = Platelet) 333 133-450 [facility] CenterXfvlvdpSWAYBBJVUZ2518-45-58 04:32:00 Test Item Value Reference Range Interpretation Comments RDW (test code = RDW) 17.9 11.5-14.5 [facility] CenterMeufvjfKFNHSJDTYG7156-41-29 04:32:00 Test Item Value Reference Range Interpretation Comments MCHC (test code = MCHC) 31.0 32.0-36.0 [facility] CenterTlxjqqlAEBPSZBXFZ8536-36-40 04:32:00 Test Item Value Reference Range Interpretation Comments MPV (test code = MPV) 7.3 7.4-10.4 [facility] CenterTihqwllHRXTMLXEVH6786-49-48 04:32:00 Test Item Value Reference Range Interpretation Comments RBC (test code = RBC) 4.28 4.20-5.40 [facility] CenterQkeifvfVSRRFEZXFL3441-50-05 04:32:00 Test Item Value Reference Range Interpretation Comments WBC (test code = WBC) 8.5 3.7-10.4 [facility] AND [id number] 04:32:00 Test Item Value Reference Range Interpretation Comments UA WBC (test code = 1 See_Comment [Automa kenroy message] The UA WBC) system which ge nerated this result transmit kenroy reference range : <=5. The reference range was not used to interpr et this result as elton l/abnormal. [facility]annURINE AND [id number] 04:32:00 Test Item Value Reference Range Interpretation Comments UA RBC (test code = 3 See_Comment [Automa kenroy message] The UA RBC) system which ge nerated this result transmit kenroy reference range : <=2. The reference range was not used to interpr et this result as elton l/abnormal. [facility] AND [id number] 04:32:00 Test Item Value Reference Range Interpretation Comments UA Leuk Est (test Negative (08/17/18 11:32 code = UA Leuk Est) PM) [facility] AND [id number] 04:32:00 Test Item Value Reference Range Interpretation Comments UA Sq Epi (test code = UA Sq Occasional /LPF Epi) [facility] AND [id number] 04:32:00 Test Item Value Reference Range Interpretation Comments UA Mucus (test code = UA Mucus) Few /LPF [facility] AND [id number] 04:32:00 Test Item Value Reference Range Interpretation Comments UA Color (test code = Yellow *NA*(08/17/18 UA Color) 11:32 PM) [facility] AND [id number] 04:32:00 Test Item Value Reference Range Interpretation Comments UA Urobilinogen (test code = UA <=1.0 mg/dL 0.1-1.0 Urobilinogen) [facility] [id number] 04:32:00 Test Item Value Reference Range Interpretation Comments UA Nitrite (test code Negative (08/17/18 11:32 = UA Nitrite) PM) [facility] AND [id number] 04:32:00 Test Item Value Reference Range Interpretation Comments UA Bili (test code = Negative *NA*(08/17/18 UA Bili) 11:32 PM) [facility] AND [id number] 04:32:00 Test Item Value Reference Range Interpretation Comments UA Blood (test code = Negative (08/17/18 11:32 UA Blood) PM) [facility] AND [id number] 04:32:00 Test Item Value Reference Range Interpretation Comments UA Ketones (test code Negative *NA*(08/17/18 = UA Ketones) 11:32 PM) [facility] AND [id number] 04:32:00 Test Item Value Reference Range Interpretation Comments UA Protein (test code Negative (08/17/18 11:32 = UA Protein) PM) [facility] AND [id number] 04:32:00 Test Item Value Reference Range Interpretation Comments UA Glucose (test code Negative *NA*(08/17/18 = UA Glucose) 11:32 PM) [facility] AND [id number] 04:32:00 Test Item Value Reference Range Interpretation Comments UA Spec Grav (test code = UA Spec 1.018 1 Grav) [facility] AND [id number] 04:32:00 Test Item Value Reference Range Interpretation Comments UA pH (test code = UA pH) 5.0 1 5.0-8.0 [facility] AND [id number] 04:32:00 Test Item Value Reference Range Interpretation Comments UA Turbidity (test code = Clear (08/17/18 11:32 UA Turbidity) PM) [facility] CenterWallStripCARLight HarmonicAC [id number] 04:32:00 Test Item Value Reference Range Interpretation Comments BNP (test code = BNP) 65 [facility] CenterWallStripCARLight HarmonicAC [id number] 04:32:00 Test Item Value Reference Range Interpretation Comments Troponin-I (test code no gt See_Comment [Auto mated message] The = Troponin-I) system which g enerated this result transmit kenroy reference range : <=0.40. The reference r alee was not used to interpr et this result as elton l/abnormal. [facility] CenterWallStripCARDIAC [id number] 04:32:00 Test Item Value Reference Range Interpretation Comments Total CK (test code = Total CK) 40 12-191 [facility] [employer] [id number] 04:32:00 Test Item Value Reference Range Interpretation Comments eGFR (test code = eGFR) 88 [facility]2019-05-30 04:32:00 Test Item Value Reference Range Interpretation Comments Potassium Lvl (test code = Potassium 3.8 3.5-5.1 Lvl) [facility]2019-05-30 04:32:00 Test Item Value Reference Range Interpretation Comments Chloride Lvl (test code = Chloride Lvl) 102 95-109 [place] 200509-05-30 04:32:00 Test Item Value Reference Range Interpretation Comments Calcium Lvl (test code = Calcium Lvl) 8.9 8.5-10.5 [place] 200509-05-30 04:32:00 Test Item Value Reference Range Interpretation Comments CO2 (test code = CO2) 28 24-32 [facility]2019-05-30 04:32:00 Test Item Value Reference Range Interpretation Comments Total Protein (test code = Total 7.4 6.4-8.4 Protein) [facility]2019-05-30 04:32:00 Test Item Value Reference Range Interpretation Comments Albumin Lvl (test code = Albumin Lvl) 3.1 3.5-5.0 [facility]2019-05-30 04:32:00 Test Item Value Reference Range Interpretation Comments AST (test code = AST) 12 See_Comment [Auto mated message] The system which ge nerated this result transmit kenroy reference range : <=37. The reference range was not used to interpr et this result as elton l/abnormal. [facility]2019-05-30 04:32:00 Test Item Value Reference Range Interpretation Comments ALT (test code = ALT) 18 See_Comment [Auto mated message] The system which ge nerated this result transmit kenroy reference range : <=65. The reference range was not used to interpr et this result as elton l/abnormal. [facility]2019-05-30 04:32:00 Test Item Value Reference Range Interpretation Comments Alk Phos (test code = Alk Phos) 101 39-136 [facility]2019-05-30 04:32:00 Test Item Value Reference Range Interpretation Comments Bili Total (test code = Bili Total) 0.2 0.2-1.3 [place] 200509-05-30 04:32:00 Test Item Value Reference Range Interpretation Comments Glucose Lvl (test code = Glucose Lvl) 96 70-99 [facility]2019-05-30 04:32:00 Test Item Value Reference Range Interpretation Comments BUN (test code = BUN) 14 7-22 [facility]2019-05-30 04:32:00 Test Item Value Reference Range Interpretation Comments Creatinine Lvl (test code = Creatinine 0.84 0.50-1.40 Lvl) [facility]2019-05-30 04:32:00 Test Item Value Reference Range Interpretation Comments Sodium Lvl (test code = Sodium Lvl) 134 135-145 [facility]2019-05-30 04:32:00 Test Item Value Reference Range Interpretation Comments AGAP (test code = AGAP) 7.8 10.0-20.0 [facility]2019-05-30 04:32:00 Test Item Value Reference Range Interpretation Comments Globulin (test code = Globulin) 4.3 2.7-4.2 [facility]2019-05-30 04:32:00 Test Item Value Reference Range Interpretation Comments B/C Ratio (test code = B/C Ratio) 17 1 6-25 [facility]2019-05-30 04:32:00 Test Item Value Reference Range Interpretation Comments A/G Ratio (test code = A/G Ratio) 0.7 1 0.7-1.6 [place] [address]2019-05-30 04:32:00 Test Item Value Reference Range Interpretation Comments S Preg (test code = S Negative *NA*(08/17/18 Preg) 11:32 PM) [facility] [id number] 04:32:00 Test Item Value Reference Range Interpretation Comments Microcyte (test code = 2+ *ABN*(08/17/18 Microcyte) 11:32 PM) [facility] CenterPvopjnxCFJAFNXCQF0840-59-25 04:32:00 Test Item Value Reference Range Interpretation Comments Eosinophils # (test code 0.2 See_Comment [A utomated message] The = Eosinophils #) system whic h generated this result tra nsmitted reference range : <=0.5. The reference r alee was not used to int erpret this result as normal/abnormal . [facility] CenterIjjdgniHUMRMOFSRB9455-30-13 04:32:00 Test Item Value Reference Range Interpretation Comments Monocytes # (test code 0.6 See_Comment [Aut omated message] The = Monocytes #) system which generated this result tra nsmitted reference range : <=0.8. The reference r alee was not used to int erpret this result as normal/abnormal . [facility] CenterIzkivbiROYVDAVOXJ7942-35-78 04:32:00 Test Item Value Reference Range Interpretation Comments Basophils # (test code 0.1 See_Comment [Aut omated message] The = Basophils #) system which generated this result tra nsmitted reference range : <=0.2. The reference r alee was not used to int erpret this result as normal/abnormal . [facility] CenterPusedpxVGLRWLZHJV3086-95-17 04:32:00 Test Item Value Reference Range Interpretation Comments Lymphocytes # (test code = Lymphocytes 3.2 1.0-5.5 #) [facility] CenterMcwozplHNXKJFMZWT0973-06-86 04:32:00 Test Item Value Reference Range Interpretation Comments Segs (test code = Segs) 52.1 45.0-75.0 [facility] CenterSlpggnbDQZMQXSRMI6413-56-76 04:32:00 Test Item Value Reference Range Interpretation Comments Lymphocytes (test code = Lymphocytes) 37.8 20.0-40.0 [facility] CenterOhgwhqmBJJFGJZPYP1382-10-86 04:32:00 Test Item Value Reference Range Interpretation Comments Basophils (test code = 1.0 See_Comment [Aut omated message] The Basophils) system which ge nerated this result tra nsmitted reference range : <=1.0. The reference r alee was not used to int erpret this result as normal/abnormal . [id number] 04:32:00 Test Item Value Reference Range Interpretation Comments Eosinophils (test code = 2.1 See_Comment [A utomated message] The Eosinophils) system which ge nerated this result tra nsmitted reference range : <=4.0. The reference r alee was not used to int erpret this result as normal/abnormal . [facility] CenterXmyokqsXLJYRURBSC4675-84-46 04:32:00 Test Item Value Reference Range Interpretation Comments Monocytes (test code = Monocytes) 7.0 2.0-12.0 [facility] CenterXgdavqkIGLZVFXZTI8871-76-18 04:32:00 Test Item Value Reference Range Interpretation Comments Neutrophils # (test code = Neutrophils 4.4 1.5-8.1 #) [facility] CenterUrsapthYQFQHIQQHY5997-11-49 04:32:00 Test Item Value Reference Range Interpretation Comments PTT (test code = PTT) 25.2 s 22.9-35.8 [facility] CenterDcsmvuxTBRGPLRLKR1489-66-36 04:32:00 Test Item Value Reference Range Interpretation Comments INR (test code = INR) 0.95 1 0.85-1.17 [facility] CenterBivlhslSYAVPWOOUZ5457-54-40 04:32:00 Test Item Value Reference Range Interpretation Comments PT (test code = PT) 12.5 s 12.0-14.7 [facility] CenterFqatkebLBPUKORVMR7001-85-41 04:32:00 Test Item Value Reference Range Interpretation Comments Hgb (test code = Hgb) 9.3 12.0-16.0 [facility] CenterWqcycooNPENCATZZZ6337-33-28 04:32:00 Test Item Value Reference Range Interpretation Comments Hct (test code = Hct) 30.0 36.0-48.0 [facility] CenterKhrwvjjRDRXNKMBGI8608-87-99 04:32:00 Test Item Value Reference Range Interpretation Comments MCH (test code = MCH) 21.8 pg 27.0-31.0 [facility] CenterOvmhvlaATUXKDYXJD3371-98-30 04:32:00 Test Item Value Reference Range Interpretation Comments MCV (test code = MCV) 70.2 80.0-98.0 [facility] CenterFhijxekRMTOPITAUI8822-32-06 04:32:00 Test Item Value Reference Range Interpretation Comments Platelet (test code = Platelet) 333 133-450 [facility] CenterEayljotWVYMIMWDYZ8848-88-37 04:32:00 Test Item Value Reference Range Interpretation Comments RDW (test code = RDW) 17.9 11.5-14.5 [facility] CenterQqlzcjgWDBQHZCIDS8690-04-96 04:32:00 Test Item Value Reference Range Interpretation Comments MCHC (test code = MCHC) 31.0 32.0-36.0 [facility] CenterJgorsswFNHJAOIVOT0548-38-89 04:32:00 Test Item Value Reference Range Interpretation Comments MPV (test code = MPV) 7.3 7.4-10.4 [facility] CenterGidnjliXKCEWUMHMY1868-09-40 04:32:00 Test Item Value Reference Range Interpretation Comments RBC (test code = RBC) 4.28 4.20-5.40 [facility] CenterWgqrbpfBNAIMCGMPF9581-29-11 04:32:00 Test Item Value Reference Range Interpretation Comments WBC (test code = WBC) 8.5 3.7-10.4 [facility] AND [id number] 04:32:00 Test Item Value Reference Range Interpretation Comments UA WBC (test code = 1 See_Comment [Automa kenroy message] The UA WBC) system which ge nerated this result transmit kenroy reference range : <=5. The reference range was not used to interpr et this result as elton l/abnormal. [facility] AND [id number] 04:32:00 Test Item Value Reference Range Interpretation Comments UA RBC (test code = 3 See_Comment [Automa kenroy message] The UA RBC) system which ge nerated this result transmit kenroy reference range : <=2. The reference range was not used to interpr et this result as elton l/abnormal. [facility] AND [id number] 04:32:00 Test Item Value Reference Range Interpretation Comments UA Leuk Est (test Negative (08/17/18 11:32 code = UA Leuk Est) PM) [facility] AND [id number] 04:32:00 Test Item Value Reference Range Interpretation Comments UA Sq Epi (test code = UA Sq Occasional /LPF Epi) [facility] AND [id number] 04:32:00 Test Item Value Reference Range Interpretation Comments UA Mucus (test code = UA Mucus) Few /LPF [facility] AND [id number] 04:32:00 Test Item Value Reference Range Interpretation Comments UA Color (test code = Yellow *NA*(08/17/18 UA Color) 11:32 PM) [facility] AND [id number] 04:32:00 Test Item Value Reference Range Interpretation Comments UA Urobilinogen (test code = UA <=1.0 mg/dL 0.1-1.0 Urobilinogen) [facility] AND [id number] 04:32:00 Test Item Value Reference Range Interpretation Comments UA Nitrite (test code Negative (08/17/18 11:32 = UA Nitrite) PM) [facility] AND [id number] 04:32:00 Test Item Value Reference Range Interpretation Comments UA Bili (test code = Negative *NA*(08/17/18 [facility]A Bili) 11:32 [facility]) [facility] [id number] 04:32:00 Test Item Value Reference Range Interpretation Comments UA Blood (test code = Negative (08/17/18 11:32 [facility]A Blood) PM) [facility] [id number] 04:32:00 Test Item Value Reference Range Interpretation Comments UA Ketones (test code Negative *NA*(08/17/18 = UA Ketones) 11:32 PM) [facility] [id number] 04:32:00 Test Item Value Reference Range Interpretation Comments UA Protein (test code Negative (08/17/18 11:32 = UA Protein) PM) [facility] [id number] 04:32:00 Test Item Value Reference Range Interpretation Comments UA Glucose (test code Negative *NA*(08/17/18 = UA Glucose) 11:32 PM) [facility] [id number] 04:32:00 Test Item Value Reference Range Interpretation Comments UA Spec Grav (test code = UA Spec 1.018 1 Grav) [facility] [id number] 04:32:00 Test Item Value Reference Range Interpretation Comments UA pH (test code = UA pH) 5.0 1 5.0-8.0 [facility] [id number] 04:32:00 Test Item Value Reference Range Interpretation Comments UA Turbidity (test code = Clear (08/17/18 11:32 UA Turbidity) PM) [facility]annC[facility] [id number] 04:32:00 Test Item Value Reference Range Interpretation Comments BNP (test code = BNP) 65 [facility] [id number] 04:32:00 Test Item Value Reference Range Interpretation Comments Troponin-I (test code no gt See_Comment [Auto mated message] The = Troponin-I) system which g enerated this result transmit kenroy reference range : <=0.40. The reference r alee was not used to interpr et this result as elton l/abnormal. [facility] [id number] 04:32:00 Test Item Value Reference Range Interpretation Comments Total CK (test code = Total CK) 40 12-191 [facility] EDUonGoannCHEM [id number] 04:32:00 Test Item Value Reference Range Interpretation Comments eGFR (test code = eGFR) 88 [facility]2019-05-30 04:32:00 Test Item Value Reference Range Interpretation Comments Potassium Lvl (test code = Potassium 3.8 3.5-5.1 Lvl) [facility]2019-05-30 04:32:00 Test Item Value Reference Range Interpretation Comments Chloride Lvl (test code = Chloride Lvl) 102 95-109 [facility]2019-05-30 04:32:00 Test Item Value Reference Range Interpretation Comments Calcium Lvl (test code = Calcium Lvl) 8.9 8.5-10.5 [facility]2019-05-30 04:32:00 Test Item Value Reference Range Interpretation Comments CO2 (test code = CO2) 28 -32 [facility]2019-05-30 04:32:00 Test Item Value Reference Range Interpretation Comments Total Protein (test code = Total 7.4 6.4-8.4 Protein) [facility]2019-05-30 04:32:00 Test Item Value Reference Range Interpretation Comments Albumin Lvl (test code = Albumin Lvl) 3.1 3.5-5.0 [facility]2019-05-30 04:32:00 Test Item Value Reference Range Interpretation Comments AST (test code = AST) 12 See_Comment [Auto mated message] The system which ge nerated this result transmit kenroy reference range : <=37. The reference range was not used to interpr et this result as elton l/abnormal. [facility] [id number] 04:32:00 Test Item Value Reference Range Interpretation Comments ALT (test code = ALT) 18 See_Comment [Auto mated message] The system which ge nerated this result transmit kenroy reference range : <=65. The reference range was not used to interpr et this result as elton l/abnormal. [facility]2019-05-30 04:32:00 Test Item Value Reference Range Interpretation Comments Alk Phos (test code = Alk Phos) 101 39-136 [facility]2019-05-30 04:32:00 Test Item Value Reference Range Interpretation Comments Bili Total (test code = Bili Total) 0.2 0.2-1.3 [facility]2019-05-30 04:32:00 Test Item Value Reference Range Interpretation Comments Glucose Lvl (test code = Glucose Lvl) 96 70-99 [facility]2019-05-30 04:32:00 Test Item Value Reference Range Interpretation Comments BUN (test code = BUN) 14 7-22 [facility]2019-05-30 04:32:00 Test Item Value Reference Range Interpretation Comments Creatinine Lvl (test code = Creatinine 0.84 0.50-1.40 Lvl) [facility]2019-05-30 04:32:00 Test Item Value Reference Range Interpretation Comments Sodium Lvl (test code = Sodium Lvl) 134 135-145 [facility]2019-05-30 04:32:00 Test Item Value Reference Range Interpretation Comments AGAP (test code = AGAP) 7.8 10.0-20.0 [facility]2019-05-30 04:32:00 Test Item Value Reference Range Interpretation Comments Globulin (test code = Globulin) 4.3 2.7-4.2 [facility]2019-05-30 04:32:00 Test Item Value Reference Range Interpretation Comments B/C Ratio (test code = B/C Ratio) 17 1 6-25 [facility]2019-05-30 04:32:00 Test Item Value Reference Range Interpretation Comments A/G Ratio (test code = A/G Ratio) 0.7 1 0.7-1.6 [place] [address]2019-05-30 04:32:00 Test Item Value Reference Range Interpretation Comments S Preg (test code = S Negative *NA*(08/17/18 Preg) 11:32 PM) [facility] CenterPsnlhqsEIPBJVWOSE0744-67-59 04:32:00 Test Item Value Reference Range Interpretation Comments Microcyte (test code = 2+ *ABN*(08/17/18 Microcyte) 11:32 PM) [facility] CenterBtehmbmUERYAJJZKG8983-86-50 04:32:00 Test Item Value Reference Range Interpretation Comments Eosinophils # (test code 0.2 See_Comment [A utomated message] The = Eosinophils #) system whic h generated this result tra nsmitted reference range : <=0.5. The reference r alee was not used to int erpret this result as normal/abnormal . [facility] CenterErsilrlJJRKJULXXK0052-23-02 04:32:00 Test Item Value Reference Range Interpretation Comments Monocytes # (test code 0.6 See_Comment [Aut omated message] The = Monocytes #) system which generated this result tra nsmitted reference range : <=0.8. The reference r alee was not used to int erpret this result as normal/abnormal . [facility] CenterXwpwwulAPMGEBYHWZ4822-46-51 04:32:00 Test Item Value Reference Range Interpretation Comments Basophils # (test code 0.1 See_Comment [Aut omated message] The = Basophils #) system which generated this result tra nsmitted reference range : <=0.2. The reference r alee was not used to int erpret this result as normal/abnormal . [facility] CenterQwjsmqxCPVLSIWVJM8428-58-41 04:32:00 Test Item Value Reference Range Interpretation Comments Lymphocytes # (test code = Lymphocytes 3.2 1.0-5.5 #) [facility] CenterOalkuccEWRMLXJLTM3092-74-98 04:32:00 Test Item Value Reference Range Interpretation Comments Segs (test code = Segs) 52.1 45.0-75.0 [facility] CenterFiqposoXVTCHTJKCW9857-52-78 04:32:00 Test Item Value Reference Range Interpretation Comments Lymphocytes (test code = Lymphocytes) 37.8 20.0-40.0 [facility] CenterQsdmtaxKHADGBHTUK2297-36-03 04:32:00 Test Item Value Reference Range Interpretation Comments Basophils (test code = 1.0 See_Comment [Aut omated message] The Basophils) system which ge nerated this result tra nsmitted reference range : <=1.0. The reference r alee was not used to int erpret this result as normal/abnormal . [facility] CenterNvrohvsBBSPETIKIT7153-30-71 04:32:00 Test Item Value Reference Range Interpretation Comments Eosinophils (test code = 2.1 See_Comment [A utomated message] The Eosinophils) system which ge nerated this result tra nsmitted reference range : <=4.0. The reference r alee was not used to int erpret this result as normal/abnormal . [facility] CenterQkzaxteTNHWYSLQQR7415-40-64 04:32:00 Test Item Value Reference Range Interpretation Comments Monocytes (test code = Monocytes) 7.0 2.0-12.0 [facility] CenterQsytgwhXMVLZZKNBY0804-67-80 04:32:00 Test Item Value Reference Range Interpretation Comments Neutrophils # (test code = Neutrophils 4.4 1.5-8.1 #) [facility] CenterNvpuztkJHYHUXLBCB2673-81-56 04:32:00 Test Item Value Reference Range Interpretation Comments PTT (test code = PTT) 25.2 s 22.9-35.8 [facility] CenterOxdbvbxFBEHCUPBWC2468-86-56 04:32:00 Test Item Value Reference Range Interpretation Comments INR (test code = INR) 0.95 1 0.85-1.17 [facility] CenterNsifdrmAURIXIBOTQ6819-81-08 04:32:00 Test Item Value Reference Range Interpretation Comments PT (test code = PT) 12.5 s 12.0-14.7 [facility] CenterGemqrvoGDDRDVHKUY3979-10-18 04:32:00 Test Item Value Reference Range Interpretation Comments Hgb (test code = Hgb) 9.3 12.0-16.0 [facility] CenterWbgkyuyFDSAISYDJS7155-85-65 04:32:00 Test Item Value Reference Range Interpretation Comments Hct (test code = Hct) 30.0 36.0-48.0 [facility] CenterAdmfvfrNBAXDMTHIB6132-23-44 04:32:00 Test Item Value Reference Range Interpretation Comments MCH (test code = MCH) 21.8 pg 27.0-31.0 [facility] CenterIwvcjzeQJCCFHEBFC9208-13-22 04:32:00 Test Item Value Reference Range Interpretation Comments MCV (test code = MCV) 70.2 80.0-98.0 [facility] CenterXblceafRDFVXTLJMY7426-64-20 04:32:00 Test Item Value Reference Range Interpretation Comments Platelet (test code = Platelet) 333 133-450 [facility] CenterRdsclrnYOKXWXCOJP6720-68-95 04:32:00 Test Item Value Reference Range Interpretation Comments RDW (test code = RDW) 17.9 11.5-14.5 [facility] CenterXbwtvneEJLUPUJKHX1554-58-46 04:32:00 Test Item Value Reference Range Interpretation Comments MCHC (test code = MCHC) 31.0 32.0-36.0 [facility] CenterLummrecOYCEJMNWZL8742-05-60 04:32:00 Test Item Value Reference Range Interpretation Comments MPV (test code = MPV) 7.3 7.4-10.4 [facility] CenterCymkusxZBFABTXNAG0413-81-58 04:32:00 Test Item Value Reference Range Interpretation Comments RBC (test code = RBC) 4.28 4.20-5.40 [facility] CenterZrchigoBQTYVZGVUH1219-05-78 04:32:00 Test Item Value Reference Range Interpretation Comments WBC (test code = WBC) 8.5 3.7-10.4 [facility] AND [id number] 04:32:00 Test Item Value Reference Range Interpretation Comments UA WBC (test code = 1 See_Comment [Automa kenroy message] The UA WBC) system which ge nerated this result transmit kenroy reference range : <=5. The reference range was not used to interpr et this result as elton l/abnormal. [facility] AND [id number] 04:32:00 Test Item Value Reference Range Interpretation Comments UA RBC (test code = 3 See_Comment [Automa kenroy message] The UA RBC) system which ge nerated this result transmit kenroy reference range : <=2. The reference range was not used to interpr et this result as elton l/abnormal. [facility] AND [id number] 04:32:00 Test Item Value Reference Range Interpretation Comments UA Leuk Est (test Negative (08/17/18 11:32 code = UA Leuk Est) PM) [facility] AND [id number] 04:32:00 Test Item Value Reference Range Interpretation Comments UA Sq Epi (test code = UA Sq Occasional /LPF Epi) [facility] AND [id number] 04:32:00 Test Item Value Reference Range Interpretation Comments UA Mucus (test code = UA Mucus) Few /LPF [facility] AND [id number] 04:32:00 Test Item Value Reference Range Interpretation Comments UA Color (test code = Yellow *NA*(08/17/18 UA Color) 11:32 PM) [facility] AND [id number] 04:32:00 Test Item Value Reference Range Interpretation Comments UA Urobilinogen (test code = UA <=1.0 mg/dL 0.1-1.0 Urobilinogen) [facility] AND [id number] 04:32:00 Test Item Value Reference Range Interpretation Comments UA Nitrite (test code Negative (08/17/18 11:32 = UA Nitrite) PM) [facility] AND [id number] 04:32:00 Test Item Value Reference Range Interpretation Comments UA Bili (test code = Negative *NA*(08/17/18 UA Bili) 11:32 PM) [facility] [id number] 04:32:00 Test Item Value Reference Range Interpretation Comments UA Blood (test code = Negative (08/17/18 11:32 UA Blood) PM) [facility] AND [id number] 04:32:00 Test Item Value Reference Range Interpretation Comments UA Ketones (test code Negative *NA*(08/17/18 = UA Ketones) 11:32 PM) [facility] [id number] 04:32:00 Test Item Value Reference Range Interpretation Comments UA Protein (test code Negative (08/17/18 11:32 = UA Protein) PM) [facility] AND [id number] 04:32:00 Test Item Value Reference Range Interpretation Comments UA Glucose (test code Negative *NA*(08/17/18 = UA Glucose) 11:32 PM) [facility] [id number] 04:32:00 Test Item Value Reference Range Interpretation Comments UA Spec Grav (test code = UA Spec 1.018 1 Grav) [facility] AND [id number] 04:32:00 Test Item Value Reference Range Interpretation Comments UA pH (test code = UA pH) 5.0 1 5.0-8.0 [facility] AND [id number] 04:32:00 Test Item Value Reference Range Interpretation Comments UA Turbidity (test code = Clear (08/17/18 11:32 UA Turbidity) PM) [facility]annCARD[facility]AC [id number] 04:32:00 Test Item Value Reference Range Interpretation Comments BNP (test code = BNP) 65 [facility]annCARD[facility]AC [id number] 04:32:00 Test Item Value Reference Range Interpretation Comments Troponin-I (test code no gt See_Comment [Auto mated message] The = Troponin-I) system which g enerated this result transmit kenroy reference range : <=0.40. The reference r alee was not used to interpr et this result as elton l/abnormal. [facility]annC[facility] [id number] 04:32:00 Test Item Value Reference Range Interpretation Comments Total CK (test code = Total CK) 40 12-191 [facility]2019-05-30 04:32:00 Test Item Value Reference Range Interpretation Comments eGFR (test code = eGFR) 88 [facility]2019-05-30 04:32:00 Test Item Value Reference Range Interpretation Comments Potassium Lvl (test code = Potassium 3.8 3.5-5.1 Lvl) [facility]2019-05-30 04:32:00 Test Item Value Reference Range Interpretation Comments Chloride Lvl (test code = Chloride Lvl) 102 95-109 [facility]2019-05-30 04:32:00 Test Item Value Reference Range Interpretation Comments Calcium Lvl (test code = Calcium Lvl) 8.9 8.5-10.5 [facility]2019-05-30 04:32:00 Test Item Value Reference Range Interpretation Comments CO2 (test code = CO2) 28 24-32 [facility]2019-05-30 04:32:00 Test Item Value Reference Range Interpretation Comments Total Protein (test code = Total 7.4 6.4-8.4 Protein) [facility]2019-05-30 04:32:00 Test Item Value Reference Range Interpretation Comments Albumin Lvl (test code = Albumin Lvl) 3.1 3.5-5.0 [facility]2019-05-30 04:32:00 Test Item Value Reference Range Interpretation Comments AST (test code = AST) 12 See_Comment [Auto mated message] The system which ge nerated this result transmit kenroy reference range : <=37. The reference range was not used to interpr et this result as elton l/abnormal. [facility]2019-05-30 04:32:00 Test Item Value Reference Range Interpretation Comments ALT (test code = ALT) 18 See_Comment [Auto mated message] The system which ge nerated this result transmit kenroy reference range : <=65. The reference range was not used to interpr et this result as elton l/abnormal. [facility]2019-05-30 04:32:00 Test Item Value Reference Range Interpretation Comments Alk Phos (test code = Alk Phos) 101 39-136 [facility]2019-05-30 04:32:00 Test Item Value Reference Range Interpretation Comments Bili Total (test code = Bili Total) 0.2 0.2-1.3 [facility]2019-05-30 04:32:00 Test Item Value Reference Range Interpretation Comments Glucose Lvl (test code = Glucose Lvl) 96 70-99 [facility]2019-05-30 04:32:00 Test Item Value Reference Range Interpretation Comments BUN (test code = BUN) 14 7-22 [facility]2019-05-30 04:32:00 Test Item Value Reference Range Interpretation Comments Creatinine Lvl (test code = Creatinine 0.84 0.50-1.40 Lvl) [facility]2019-05-30 04:32:00 Test Item Value Reference Range Interpretation Comments Sodium Lvl (test code = Sodium Lvl) 134 135-145 [facility]2019-05-30 04:32:00 Test Item Value Reference Range Interpretation Comments AGAP (test code = AGAP) 7.8 10.0-20.0 [facility]2019-05-30 04:32:00 Test Item Value Reference Range Interpretation Comments Globulin (test code = Globulin) 4.3 2.7-4.2 [facility]2019-05-30 04:32:00 Test Item Value Reference Range Interpretation Comments B/C Ratio (test code = B/C Ratio) 17 1 6-25 [facility]2019-05-30 04:32:00 Test Item Value Reference Range Interpretation Comments A/G Ratio (test code = A/G Ratio) 0.7 1 0.7-1.6 [place] [address]2019-05-30 04:32:00 Test Item Value Reference Range Interpretation Comments S Preg (test code = S Negative *NA*(08/17/18 Preg) 11:32 PM) [facility] CenterQtwcguxXZWBKPERVY1478-08-75 04:32:00 Test Item Value Reference Range Interpretation Comments Microcyte (test code = 2+ *ABN*(08/17/18 Microcyte) 11:32 PM) [facility] CenterCadakizCSDYEVFBNB8729-33-40 04:32:00 Test Item Value Reference Range Interpretation Comments Eosinophils # (test code 0.2 See_Comment [A utomated message] The = Eosinophils #) system ic h generated this result tra nsmitted reference range : <=0.5. The reference r alee was not used to int erpret this result as normal/abnormal . [facility] CenterFcefjlrXJOFSQDALN0009-62-17 04:32:00 Test Item Value Reference Range Interpretation Comments Monocytes # (test code 0.6 See_Comment [Aut omated message] The = Monocytes #) system which generated this result tra nsmitted reference range : <=0.8. The reference r alee was not used to int erpret this result as normal/abnormal . [facility] CenterXsuchgzFZJGLCXMMF2702-56-62 04:32:00 Test Item Value Reference Range Interpretation Comments Basophils # (test code 0.1 See_Comment [Aut omated message] The = Basophils #) system which generated this result tra nsmitted reference range : <=0.2. The reference r alee was not used to int erpret this result as normal/abnormal . [facility] CenterJueixwmCBWXCOCCXU4059-46-97 04:32:00 Test Item Value Reference Range Interpretation Comments Lymphocytes # (test code = Lymphocytes 3.2 1.0-5.5 #) [facility] CenterJjfnshnYHNOLMLTGZ4430-52-26 04:32:00 Test Item Value Reference Range Interpretation Comments Segs (test code = Segs) 52.1 45.0-75.0 [facility] CenterAkjdcdtXYWTPOSLWK0494-54-63 04:32:00 Test Item Value Reference Range Interpretation Comments Lymphocytes (test code = Lymphocytes) 37.8 20.0-40.0 [facility] CenterFkhnkekHTYWCYBNGC9012-27-53 04:32:00 Test Item Value Reference Range Interpretation Comments Basophils (test code = 1.0 See_Comment [Aut omated message] The Basophils) system which ge nerated this result tra nsmitted reference range : <=1.0. The reference r alee was not used to int erpret this result as normal/abnormal . [facility] CenterJvfyigqYGUOGJWHUN4924-45-84 04:32:00 Test Item Value Reference Range Interpretation Comments Eosinophils (test code = 2.1 See_Comment [A utomated message] The Eosinophils) system which ge nerated this result tra nsmitted reference range : <=4.0. The reference r alee was not used to int erpret this result as normal/abnormal . [facility]NbtinlcPGVBRHDSQN1837-73-60 04:32:00 Test Item Value Reference Range Interpretation Comments Monocytes (test code = Monocytes) 7.0 2.0-12.0 [facility] CenterAfpmobuUEIBKISYSF2152-14-15 04:32:00 Test Item Value Reference Range Interpretation Comments Neutrophils # (test code = Neutrophils 4.4 1.5-8.1 #) [facility] CenterKckynktHTQHKBNXPQ5054-94-71 04:32:00 Test Item Value Reference Range Interpretation Comments PTT (test code = PTT) 25.2 s 22.9-35.8 [facility] CenterFpvhrecZGIBZOJHYK1476-32-32 04:32:00 Test Item Value Reference Range Interpretation Comments INR (test code = INR) 0.95 1 0.85-1.17 [facility] CenterFlvacjlUFKPNKULTE4653-79-25 04:32:00 Test Item Value Reference Range Interpretation Comments PT (test code = PT) 12.5 s 12.0-14.7 [facility] CenterDszsedaYHQZZKUKKL8677-66-01 04:32:00 Test Item Value Reference Range Interpretation Comments Hgb (test code = Hgb) 9.3 12.0-16.0 [facility] CenterVtrkxgfBGNZFOYHOW7013-64-37 04:32:00 Test Item Value Reference Range Interpretation Comments Hct (test code = Hct) 30.0 36.0-48.0 [facility] CenterWnenitdTLPEKBZAXP2516-46-33 04:32:00 Test Item Value Reference Range Interpretation Comments MCH (test code = MCH) 21.8 pg 27.0-31.0 [facility] CenterUusyzhnWPTPRONDXG3948-87-69 04:32:00 Test Item Value Reference Range Interpretation Comments MCV (test code = MCV) 70.2 80.0-98.0 [facility] CenterCvmrmfrLMBDLIBKIZ5791-10-63 04:32:00 Test Item Value Reference Range Interpretation Comments Platelet (test code = Platelet) 333 133-450 [facility] CenterXsqikdaIKCUNNBTMD8369-49-44 04:32:00 Test Item Value Reference Range Interpretation Comments RDW (test code = RDW) 17.9 11.5-14.5 [facility] CenterXdtbnogOLYLUGOPKP4008-34-10 04:32:00 Test Item Value Reference Range Interpretation Comments MCHC (test code = MCHC) 31.0 32.0-36.0 [facility] CenterFinwdcyFYFKCYCTKB8960-06-26 04:32:00 Test Item Value Reference Range Interpretation Comments MPV (test code = MPV) 7.3 7.4-10.4 [facility] CenterWoimugdHDZVKLYWMT4854-36-17 04:32:00 Test Item Value Reference Range Interpretation Comments RBC (test code = RBC) 4.28 4.20-5.40 [facility] CenterRrnqnkbXZJEHZKXOL6791-72-92 04:32:00 Test Item Value Reference Range Interpretation Comments WBC (test code = WBC) 8.5 3.7-10.4 [facility] AND [id number] 04:32:00 Test Item Value Reference Range Interpretation Comments UA WBC (test code = 1 See_Comment [Automa kenroy message] The UA WBC) system which ge nerated this result transmit kenroy reference range : <=5. The reference range was not used to interpr et this result as elton l/abnormal. [facility] AND [id number] 04:32:00 Test Item Value Reference Range Interpretation Comments UA RBC (test code = 3 See_Comment [Automa kenroy message] The UA RBC) system which ge nerated this result transmit kenroy reference range : <=2. The reference range was not used to interpr et this result as elton l/abnormal. [facility] AND [id number] 04:32:00 Test Item Value Reference Range Interpretation Comments UA Leuk Est (test Negative (08/17/18 11:32 code = UA Leuk Est) PM) [facility] AND [id number] 04:32:00 Test Item Value Reference Range Interpretation Comments UA Sq Epi (test code = UA Sq Occasional /LPF Epi) [facility] AND [id number] 04:32:00 Test Item Value Reference Range Interpretation Comments UA Mucus (test code = UA Mucus) Few /LPF [facility] AND [id number] 04:32:00 Test Item Value Reference Range Interpretation Comments UA Color (test code = Yellow *NA*(08/17/18 UA Color) 11:32 PM) [facility] AND [id number] 04:32:00 Test Item Value Reference Range Interpretation Comments UA Urobilinogen (test code = UA <=1.0 mg/dL 0.1-1.0 Urobilinogen) [facility] AND [id number] 04:32:00 Test Item Value Reference Range Interpretation Comments UA Nitrite (test code Negative (08/17/18 11:32 = UA Nitrite) PM) [facility] [id number] 04:32:00 Test Item Value Reference Range Interpretation Comments UA Bili (test code = Negative *NA*(08/17/18 UA Bili) 11:32 PM) [facility] [id number] 04:32:00 Test Item Value Reference Range Interpretation Comments UA Blood (test code = Negative (08/17/18 11:32 UA Blood) PM) [facility] [id number] 04:32:00 Test Item Value Reference Range Interpretation Comments UA Ketones (test code Negative *NA*(08/17/18 = UA Ketones) 11:32 PM) [facility] [id number] 04:32:00 Test Item Value Reference Range Interpretation Comments UA Protein (test code Negative (08/17/18 11:32 = UA Protein) PM) [facility] AND [id number] 04:32:00 Test Item Value Reference Range Interpretation Comments UA Glucose (test code Negative *NA*(08/17/18 = UA Glucose) 11:32 PM) [facility] AND [id number] 04:32:00 Test Item Value Reference Range Interpretation Comments UA Spec Grav (test code = UA Spec 1.018 1 Grav) [facility] AND [id number] 04:32:00 Test Item Value Reference Range Interpretation Comments UA pH (test code = UA pH) 5.0 1 5.0-8.0 [facility] AND [id number] 04:32:00 Test Item Value Reference Range Interpretation Comments UA Turbidity (test code = Clear (08/17/18 11:32 UA Turbidity) PM) [facility] [id number] 04:32:00 Test Item Value Reference Range Interpretation Comments BNP (test code = BNP) 65 [facility] [id number] 04:32:00 Test Item Value Reference Range Interpretation Comments Troponin-I (test code no gt See_Comment [Auto mated message] The = Troponin-I) system which g enerated this result transmit kenroy reference range : <=0.40. The reference r alee was not used to interpr et this result as elton l/abnormal. [facility] [id number] 04:32:00 Test Item Value Reference Range Interpretation Comments Total CK (test code = Total CK) 40 12-191 [facility] [employer] [id number] 04:32:00 Test Item Value Reference Range Interpretation Comments eGFR (test code = eGFR) 88 [facility] [id number] 04:32:00 Test Item Value Reference Range Interpretation Comments Potassium Lvl (test code = Potassium 3.8 3.5-5.1 Lvl) [facility] [id number] 04:32:00 Test Item Value Reference Range Interpretation Comments Chloride Lvl (test code = Chloride Lvl) 102 95-109 [facility] [employer] [id number] 04:32:00 Test Item Value Reference Range Interpretation Comments Calcium Lvl (test code = Calcium Lvl) 8.9 8.5-10.5 [facility] [employer] [facility] [id number] 04:32:00 Test Item Value Reference Range Interpretation Comments CO2 (test code = CO2) 28 24-32 [facility] [employer] [facility] [id number] 04:32:00 Test Item Value Reference Range Interpretation Comments Total Protein (test code = Total 7.4 6.4-8.4 Protein) [facility] [employer] [facility] [id number] 04:32:00 Test Item Value Reference Range Interpretation Comments Albumin Lvl (test code = Albumin Lvl) 3.1 3.5-5.0 [facility] [employer] [facility] [id number] 04:32:00 Test Item Value Reference Range Interpretation Comments AST (test code = AST) 12 See_Comment [Auto mated message] The system which ge nerated this result transmit kenroy reference range : <=37. The reference range was not used to interpr et this result as elton l/abnormal. [facility] [employer] [facility] [id number] 04:32:00 Test Item Value Reference Range Interpretation Comments ALT (test code = ALT) 18 See_Comment [Auto mated message] The system which ge nerated this result transmit kenroy reference range : <=65. The reference range was not used to interpr et this result as elton l/abnormal. [facility] [employer] [id number] 04:32:00 Test Item Value Reference Range Interpretation Comments Alk Phos (test code = Alk Phos) 101 39-136 [facility]2019-05-30 04:32:00 Test Item Value Reference Range Interpretation Comments Bili Total (test code = Bili Total) 0.2 0.2-1.3 [facility]2019-05-30 04:32:00 Test Item Value Reference Range Interpretation Comments Glucose Lvl (test code = Glucose Lvl) 96 70-99 [facility]2019-05-30 04:32:00 Test Item Value Reference Range Interpretation Comments BUN (test code = BUN) 14 7-22 [facility]2019-05-30 04:32:00 Test Item Value Reference Range Interpretation Comments Creatinine Lvl (test code = Creatinine 0.84 0.50-1.40 Lvl) [facility]2019-05-30 04:32:00 Test Item Value Reference Range Interpretation Comments Sodium Lvl (test code = Sodium Lvl) 134 135-145 [facility]2019-05-30 04:32:00 Test Item Value Reference Range Interpretation Comments AGAP (test code = AGAP) 7.8 10.0-20.0 [facility]2019-05-30 04:32:00 Test Item Value Reference Range Interpretation Comments Globulin (test code = Globulin) 4.3 2.7-4.2 [facility]2019-05-30 04:32:00 Test Item Value Reference Range Interpretation Comments B/C Ratio (test code = B/C Ratio) 17 1 6-25 [facility]2019-05-30 04:32:00 Test Item Value Reference Range Interpretation Comments A/G Ratio (test code = A/G Ratio) 0.7 1 0.7-1.6 [place] [address]2019-05-30 04:32:00 Test Item Value Reference Range Interpretation Comments S Preg (test code = S Negative *NA*(08/17/18 Preg) 11:32 PM) [facility] [id number] 04:32:00 Test Item Value Reference Range Interpretation Comments Microcyte (test code = 2+ *ABN*(08/17/18 Microcyte) 11:32 PM) [facility] CenterHmomsrcYKVZSDLEUF8225-09-88 04:32:00 Test Item Value Reference Range Interpretation Comments Eosinophils # (test code 0.2 See_Comment [A utomated message] The = Eosinophils #) system whic h generated this result tra nsmitted reference range : <=0.5. The reference r alee was not used to int erpret this result as normal/abnormal . [facility] CenterJxsrytkODMTOUPTPK9584-93-46 04:32:00 Test Item Value Reference Range Interpretation Comments Monocytes # (test code 0.6 See_Comment [Aut omated message] The = Monocytes #) system which generated this result tra nsmitted reference range : <=0.8. The reference r alee was not used to int erpret this result as normal/abnormal . [facility] CenterOlbflmkZKJKMLFWIL1145-67-10 04:32:00 Test Item Value Reference Range Interpretation Comments Basophils # (test code 0.1 See_Comment [Aut omated message] The = Basophils #) system which generated this result tra nsmitted reference range : <=0.2. The reference r alee was not used to int erpret this result as normal/abnormal . [facility] CenterFkqiqrvNCNFISJYLX4679-39-03 04:32:00 Test Item Value Reference Range Interpretation Comments Lymphocytes # (test code = Lymphocytes 3.2 1.0-5.5 #) [facility] C[id number] 04:32:00 Test Item Value Reference Range Interpretation Comments Segs (test code = Segs) 52.1 45.0-75.0 [facility] CenterFpzaeyrFYAXPWPTUD4551-85-70 04:32:00 Test Item Value Reference Range Interpretation Comments Lymphocytes (test code = Lymphocytes) 37.8 20.0-40.0 [facility] CenterUqujarbMVQDFKMMLC0352-88-68 04:32:00 Test Item Value Reference Range Interpretation Comments Basophils (test code = 1.0 See_Comment [Aut omated message] The Basophils) system which ge nerated this result tra nsmitted reference range : <=1.0. The reference r alee was not used to int erpret this result as normal/abnormal . [facility] CenterWsjgzhxWEXCUPTRMC1486-04-72 04:32:00 Test Item Value Reference Range Interpretation Comments Eosinophils (test code = 2.1 See_Comment [A utomated message] The Eosinophils) system which ge nerated this result tra nsmitted reference range : <=4.0. The reference r alee was not used to int erpret this result as normal/abnormal . [facility] CenterHeidpkhWAUCTBXDDX7507-68-10 04:32:00 Test Item Value Reference Range Interpretation Comments Monocytes (test code = Monocytes) 7.0 2.0-12.0 [facility] CenterWmbjmhaBTUZCXVTCR0915-12-14 04:32:00 Test Item Value Reference Range Interpretation Comments Neutrophils # (test code = Neutrophils 4.4 1.5-8.1 #) [facility] Cent[id number] 04:32:00 Test Item Value Reference Range Interpretation Comments PTT (test code = PTT) 25.2 s 22.9-35.8 [facility] CenterAjhopunXBLNXXPMFM0855-29-72 04:32:00 Test Item Value Reference Range Interpretation Comments INR (test code = INR) 0.95 1 0.85-1.17 [facility] CenterNuaneloBTTHSEMYCZ5313-16-40 04:32:00 Test Item Value Reference Range Interpretation Comments PT (test code = PT) 12.5 s 12.0-14.7 [facility] CenterMlinlueLWVUOPSEOA5001-41-06 04:32:00 Test Item Value Reference Range Interpretation Comments Hgb (test code = Hgb) 9.3 12.0-16.0 [facility] CenterQomzcjsUMNRGSJCLH6628-51-67 04:32:00 Test Item Value Reference Range Interpretation Comments Hct (test code = Hct) 30.0 36.0-48.0 [facility] CenterLsjnoyoOZTUGVKWPR6730-52-33 04:32:00 Test Item Value Reference Range Interpretation Comments MCH (test code = MCH) 21.8 pg 27.0-31.0 [facility] CenterCklhphnTLZJIIHVRU4345-44-57 04:32:00 Test Item Value Reference Range Interpretation Comments MCV (test code = MCV) 70.2 80.0-98.0 [facility] CenterUwmsfmlTXHWGUTWUU1669-85-18 04:32:00 Test Item Value Reference Range Interpretation Comments Platelet (test code = Platelet) 333 133-450 [facility] CenterMijkjruBTFAJCTQPO5992-75-10 04:32:00 Test Item Value Reference Range Interpretation Comments RDW (test code = RDW) 17.9 11.5-14.5 [facility] CenterMhyqljkKUFBTQATAM7426-57-57 04:32:00 Test Item Value Reference Range Interpretation Comments MCHC (test code = MCHC) 31.0 32.0-36.0 [facility] CenterJnofoltKAJOPZPZZW8781-72-24 04:32:00 Test Item Value Reference Range Interpretation Comments MPV (test code = MPV) 7.3 7.4-10.4 [facility] CenterKxafhrmKOLXPGLCWC3758-42-29 04:32:00 Test Item Value Reference Range Interpretation Comments RBC (test code = RBC) 4.28 4.20-5.40 [facility]lbhbaxDOMVNRPQIS8179-75-23 04:32:00 Test Item Value Reference Range Interpretation Comments WBC (test code = WBC) 8.5 3.7-10.4 [facility] AND [id number] 04:32:00 Test Item Value Reference Range Interpretation Comments UA WBC (test code = 1 See_Comment [Automa kenroy message] The UA WBC) system which ge nerated this result transmit kenroy reference range : <=5. The reference range was not used to interpr et this result as elton l/abnormal. [facility] AND [id number] 04:32:00 Test Item Value Reference Range Interpretation Comments UA RBC (test code = 3 See_Comment [Automa kenroy message] The UA RBC) system which ge nerated this result transmit kenroy reference range : <=2. The reference range was not used to interpr et this result as elton l/abnormal. [facility] AND [id number] 04:32:00 Test Item Value Reference Range Interpretation Comments UA Leuk Est (test Negative (08/17/18 11:32 code = UA Leuk Est) PM) [facility] AND [id number] 04:32:00 Test Item Value Reference Range Interpretation Comments UA Sq Epi (test code = UA Sq Occasional /LPF Epi) [facility] AND [id number] 04:32:00 Test Item Value Reference Range Interpretation Comments UA Mucus (test code = UA Mucus) Few /LPF [facility] AND [id number] 04:32:00 Test Item Value Reference Range Interpretation Comments UA Color (test code = Yellow *NA*(08/17/18 UA Color) 11:32 PM) [facility] AND [id number] 04:32:00 Test Item Value Reference Range Interpretation Comments UA Urobilinogen (test code = UA <=1.0 mg/dL 0.1-1.0 Urobilinogen) [facility] AND [id number] 04:32:00 Test Item Value Reference Range Interpretation Comments UA Nitrite (test code Negative (08/17/18 11:32 = UA Nitrite) PM) [facility] AND [id number] 04:32:00 Test Item Value Reference Range Interpretation Comments UA Bili (test code = Negative *NA*(08/17/18 UA Bili) 11:32 PM) [facility] AND [id number] 04:32:00 Test Item Value Reference Range Interpretation Comments UA Blood (test code = Negative (08/17/18 11:32 UA Blood) PM) [facility] AND [id number] 04:32:00 Test Item Value Reference Range Interpretation Comments UA Ketones (test code Negative *NA*(08/17/18 = UA Ketones) 11:32 PM) [facility] AND [id number] 04:32:00 Test Item Value Reference Range Interpretation Comments UA Protein (test code Negative (08/17/18 11:32 = UA Protein) PM) [facility] AND [id number] 04:32:00 Test Item Value Reference Range Interpretation Comments UA Glucose (test code Negative *NA*(08/17/18 = UA Glucose) 11:32 PM) [facility] AND [id number] 04:32:00 Test Item Value Reference Range Interpretation Comments UA Spec Grav (test code = UA Spec 1.018 1 Grav) [facility] AND [id number] 04:32:00 Test Item Value Reference Range Interpretation Comments UA pH (test code = UA pH) 5.0 1 5.0-8.0 [facility] AND [id number] 04:32:00 Test Item Value Reference Range Interpretation Comments UA Turbidity (test code = Clear (08/17/18 11:32 UA Turbidity) PM) [facility] [id number] 10:22:00 Test Item Value Reference Range Interpretation Comments Troponin-I (test code no gt See_Comment [Auto mated message] The = Troponin-I) system which g enerated this result transmit kenroy reference range : <=0.40. The reference r alee was not used to interpr et this result as elton l/abnormal. [facility]ann[facility] [id number] 10:22:00 Test Item Value Reference Range Interpretation Comments Troponin-I (test code no gt See_Comment [Auto mated message] The = Troponin-I) system which g enerated this result transmit kenroy reference range : <=0.40. The reference r alee was not used to interpr et this result as elton l/abnormal. [facility] [id number] 10:22:00 Test Item Value Reference Range Interpretation Comments Troponin-I (test code no gt See_Comment [Auto mated message] The = Troponin-I) system which g enerated this result transmit kenroy reference range : <=0.40. The reference r alee was not used to interpr et this result as elton l/abnormal. [facility] [id number] 10:22:00 Test Item Value Reference Range Interpretation Comments Troponin-I (test code no gt See_Comment [Auto mated message] The = Troponin-I) system which g enerated this result transmit kenroy reference range : <=0.40. The reference r alee was not used to interpr et this result as elton l/abnormal. [facility] [id number] 10:22:00 Test Item Value Reference Range Interpretation Comments Troponin-I (test code no gt See_Comment [Auto mated message] The = Troponin-I) system which g enerated this result transmit kenroy reference range : <=0.40. The reference r alee was not used to interpr et this result as eltno l/abnormal. [facility] [id number] 10:22:00 Test Item Value Reference Range Interpretation Comments Troponin-I (test code no gt See_Comment [Auto mated message] The = Troponin-I) system which g enerated this result transmit kenroy reference range : <=0.40. The reference r alee was not used to interpr et this result as elton l/abnormal. [facility] HospitalFigmentAmerican Halal [id number] 10:22:00 Test Item Value Reference Range Interpretation Comments Troponin-I (test code no gt See_Comment [Auto mated message] The = Troponin-I) system which g enerated this result transmit kenroy reference range : <=0.40. The reference r alee was not used to interpr et this result as elton l/abnormal. [facility]2019-05-24 10:22:00 Test Item Value Reference Range Interpretation Comments Troponin-I (test code no gt See_Comment [Auto mated message] The = Troponin-I) system which g enerated this result transmit kenroy reference range : <=0.40. The reference r alee was not used to interpr et this result as elton l/abnormal. [facility] CenterKnmfmadLGVXIVXDRC9215-11-01 07:58:00 Test Item Value Reference Range Interpretation Comments Monocytes (test code = Monocytes) 6.9 2.0-12.0 [facility] C[id number] 07:58:00 Test Item Value Reference Range Interpretation Comments Segs (test code = Segs) 51.6 45.0-75.0 [facility] CenterYqmwojsOTXKVLPZKQ6174-15-73 07:58:00 Test Item Value Reference Range Interpretation Comments Lymphocytes (test code = Lymphocytes) 39.0 20.0-40.0 [facility] CenterQmfpxlcHJYWWJNQZM7929-09-34 07:58:00 Test Item Value Reference Range Interpretation Comments Eosinophils # (test code 0.2 See_Comment [A utomated message] The = Eosinophils #) system whic h generated this result tra nsmitted reference range : <=0.5. The reference r alee was not used to int erpret this result as normal/abnormal . [facility] CenterYwgpfuwCVBFAXBPNL0030-24-92 07:58:00 Test Item Value Reference Range Interpretation Comments Microcyte (test code = 2+ *ABN*(08/12/18 Microcyte) 2:58 AM) [facility] CenterYntlwhzJCTTUNCCOP3593-08-68 07:58:00 Test Item Value Reference Range Interpretation Comments Neutrophils # (test code = Neutrophils 4.7 1.5-8.1 #) [facility] CenterWiplclaMNFSJNGJVO0008-17-94 07:58:00 Test Item Value Reference Range Interpretation Comments Monocytes # (test code 0.6 See_Comment [Aut omated message] The = Monocytes #) system which generated this result tra nsmitted reference range : <=0.8. The reference r alee was not used to int erpret this result as normal/abnormal . [facility] CenterMhsvyaxZNBXIVGZRP2662-27-74 07:58:00 Test Item Value Reference Range Interpretation Comments Lymphocytes # (test code = Lymphocytes 3.5 1.0-5.5 #) [facility] CenterJymippdKPRFOKLLQZ8445-86-09 07:58:00 Test Item Value Reference Range Interpretation Comments Basophils (test code = 0.2 See_Comment [Aut omated message] The Basophils) system which ge nerated this result tra nsmitted reference range : <=1.0. The reference r alee was not used to int erpret this result as normal/abnormal . [facility] CenterLakozvnADNYQTTLYO8575-50-40 07:58:00 Test Item Value Reference Range Interpretation Comments Eosinophils (test code = 2.3 See_Comment [A utomated message] The Eosinophils) system which ge nerated this result tra nsmitted reference range : <=4.0. The reference r alee was not used to int erpret this result as normal/abnormal . [facility] CenterGhnmjymNUUTTHZTKV0216-49-24 07:58:00 Test Item Value Reference Range Interpretation Comments MCV (test code = MCV) 69.7 80.0-98.0 [facility] CenterIhefrfxWIVMONMVXJ5711-77-22 07:58:00 Test Item Value Reference Range Interpretation Comments MCH (test code = MCH) 22.2 pg 27.0-31.0 [facility] CenterTqpygfuFFFRLDPHXN8298-92-15 07:58:00 Test Item Value Reference Range Interpretation Comments Platelet (test code = Platelet) 377 133-450 [facility] CenterFmwdyiqSTBZTKELEA3880-75-07 07:58:00 Test Item Value Reference Range Interpretation Comments MCHC (test code = MCHC) 31.9 32.0-36.0 [facility] CenterOekxsqhUUOMJBFCNR8991-73-85 07:58:00 Test Item Value Reference Range Interpretation Comments RDW (test code = RDW) 17.4 11.5-14.5 [facility] CenterChnhvviRPGVZDQFEK0722-25-74 07:58:00 Test Item Value Reference Range Interpretation Comments MPV (test code = MPV) 7.4 7.4-10.4 [facility]GplcthnBACEFCWSRH6404-27-45 07:58:00 Test Item Value Reference Range Interpretation Comments RBC (test code = RBC) 4.56 4.20-5.40 [facility] CenterBlfmvuqLCASJFSOGL1916-98-58 07:58:00 Test Item Value Reference Range Interpretation Comments Hgb (test code = Hgb) 10.1 12.0-16.0 [place] 433069-05-24 07:58:00 Test Item Value Reference Range Interpretation Comments Hct (test code = Hct) 31.7 36.0-48.0 [facility] CenterPedgvmnNNPSDDMCIE7988-26-65 07:58:00 Test Item Value Reference Range Interpretation Comments WBC (test code = WBC) 9.1 3.7-10.4 [facility] CenterNzwcawhQXFGOHALBR2780-55-55 07:58:00 Test Item Value Reference Range Interpretation Comments PTT (test code = PTT) 21.4 s 22.9-35.8 [facility] CenterIcqsnxpFDBXZPVPRG2781-70-43 07:58:00 Test Item Value Reference Range Interpretation Comments PT (test code = PT) 12.9 s 12.0-14.7 [facility] CenterIcajwfeNKFOPUCITO5460-05-71 07:58:00 Test Item Value Reference Range Interpretation Comments INR (test code = INR) 0.99 1 0.85-1.17 [facility] CenterNoadpbmOGTSYXVWSH3722-87-03 07:58:00 Test Item Value Reference Range Interpretation Comments Monocytes (test code = Monocytes) 6.9 2.0-12.0 [facility] CenterBkkeqqfFIEAGBUHHT0805-53-37 07:58:00 Test Item Value Reference Range Interpretation Comments Segs (test code = Segs) 51.6 45.0-75.0 [facility] CenterMqpknjiGLXTGYMNSS9441-59-63 07:58:00 Test Item Value Reference Range Interpretation Comments Lymphocytes (test code = Lymphocytes) 39.0 20.0-40.0 [facility] CenterJimyuctHWFRKLXARW3611-12-99 07:58:00 Test Item Value Reference Range Interpretation Comments Eosinophils # (test code 0.2 See_Comment [A utomated message] The = Eosinophils #) system ic h generated this result tra nsmitted reference range : <=0.5. The reference r alee was not used to int erpret this result as normal/abnormal . [facility] CenterEmzdtzsZDQUIRLXEP1034-36-62 07:58:00 Test Item Value Reference Range Interpretation Comments Microcyte (test code = 2+ *ABN*(08/12/18 Microcyte) 2:58 AM) [facility] CenterNkohgigRWSSVQAUHZ6781-43-72 07:58:00 Test Item Value Reference Range Interpretation Comments Neutrophils # (test code = Neutrophils 4.7 1.5-8.1 #) [facility] CenterQvxdkmfEGLWCUWUPN4136-04-50 07:58:00 Test Item Value Reference Range Interpretation Comments Monocytes # (test code 0.6 See_Comment [Aut omated message] The = Monocytes #) system which generated this result tra nsmitted reference range : <=0.8. The reference r alee was not used to int erpret this result as normal/abnormal . [facility] CenterPnawsgtBPJHNZIXXH9179-10-63 07:58:00 Test Item Value Reference Range Interpretation Comments Lymphocytes # (test code = Lymphocytes 3.5 1.0-5.5 #) [facility] CenterKvemrylXLUHYWFAZB7797-64-66 07:58:00 Test Item Value Reference Range Interpretation Comments Basophils (test code = 0.2 See_Comment [Aut omated message] The Basophils) system which ge nerated this result tra nsmitted reference range : <=1.0. The reference r alee was not used to int erpret this result as normal/abnormal . [facility] CenterOlihbzeJMKJYJCYSH2663-18-34 07:58:00 Test Item Value Reference Range Interpretation Comments Eosinophils (test code = 2.3 See_Comment [A utomated message] The Eosinophils) system which ge nerated this result tra nsmitted reference range : <=4.0. The reference r alee was not used to int erpret this result as normal/abnormal . [facility] CenterVgynjukKFTIEADZRT1354-03-80 07:58:00 Test Item Value Reference Range Interpretation Comments MCV (test code = MCV) 69.7 80.0-98.0 [facility] CenterQyhrwlvOVRGFOWXKV7744-44-92 07:58:00 Test Item Value Reference Range Interpretation Comments MCH (test code = MCH) 22.2 pg 27.0-31.0 [facility] CenterBbepjbwBIMUSJUDPJ7519-19-28 07:58:00 Test Item Value Reference Range Interpretation Comments Platelet (test code = Platelet) 377 133-450 [facility] CenterTaajvmoPRIRLEGKPU6903-92-75 07:58:00 Test Item Value Reference Range Interpretation Comments MCHC (test code = MCHC) 31.9 32.0-36.0 [facility] CenterFxpoipqHQLROPIBUL7719-54-92 07:58:00 Test Item Value Reference Range Interpretation Comments RDW (test code = RDW) 17.4 11.5-14.5 [facility] CenterZcyhttnNBJLCLCFIL9318-10-66 07:58:00 Test Item Value Reference Range Interpretation Comments MPV (test code = MPV) 7.4 7.4-10.4 [facility] CenterMlvjetvVUADCFRNIU4148-76-87 07:58:00 Test Item Value Reference Range Interpretation Comments RBC (test code = RBC) 4.56 4.20-5.40 [facility] CenterPoxczbcBCIEHISDHX1271-11-53 07:58:00 Test Item Value Reference Range Interpretation Comments Hgb (test code = Hgb) 10.1 12.0-16.0 [facility] CenterPgsvdvjBKQBOYKODD4268-40-88 07:58:00 Test Item Value Reference Range Interpretation Comments Hct (test code = Hct) 31.7 36.0-48.0 [facility] CenterHhhpyjaJASPAZXZMN2282-63-77 07:58:00 Test Item Value Reference Range Interpretation Comments WBC (test code = WBC) 9.1 3.7-10.4 [facility] CenterYejzymxPQVKZWOUIO8816-39-25 07:58:00 Test Item Value Reference Range Interpretation Comments PTT (test code = PTT) 21.4 s 22.9-35.8 [facility] CenterKqldvwtUHXOSKNQPB5550-92-40 07:58:00 Test Item Value Reference Range Interpretation Comments PT (test code = PT) 12.9 s 12.0-14.7 [facility] CenterSmyazyoCMLPPHTQCL0387-55-57 07:58:00 Test Item Value Reference Range Interpretation Comments INR (test code = INR) 0.99 1 0.85-1.17 [facility] CenterBusujcrJFPGNQSAKN8103-71-76 07:58:00 Test Item Value Reference Range Interpretation Comments Monocytes (test code = Monocytes) 6.9 2.0-12.0 [facility] CenterIgjxubeXHAGNQNMVK7171-57-90 07:58:00 Test Item Value Reference Range Interpretation Comments Segs (test code = Segs) 51.6 45.0-75.0 [facility] CenterBaulmpaLTJUIOVGLU2042-84-04 07:58:00 Test Item Value Reference Range Interpretation Comments Lymphocytes (test code = Lymphocytes) 39.0 20.0-40.0 [facility] CenterBptuwvmJDTNRNVGVC6815-64-05 07:58:00 Test Item Value Reference Range Interpretation Comments Eosinophils # (test code 0.2 See_Comment [A utomated message] The = Eosinophils #) system [facility] h generated this result tra nsmitted reference range : <=0.5. The reference r alee was not used to int erpret this result as normal/abnormal . [facility] CenterKrlrkeqNLXGOMQUPA4908-46-58 07:58:00 Test Item Value Reference Range Interpretation Comments Microcyte (test code = 2+ *ABN*(08/12/18 Microcyte) 2:58 AM) [facility] CenterWchldvkSQOPFMVBDV3042-86-36 07:58:00 Test Item Value Reference Range Interpretation Comments Neutrophils # (test code = Neutrophils 4.7 1.5-8.1 #) [facility] CenterKritvpkURUHEKKOMQ1032-63-09 07:58:00 Test Item Value Reference Range Interpretation Comments Monocytes # (test code 0.6 See_Comment [Aut omated message] The = Monocytes #) system which generated this result tra nsmitted reference range : <=0.8. The reference r alee was not used to int erpret this result as normal/abnormal . [facility] CenterNskrbaoBZUWBMLOST5363-53-49 07:58:00 Test Item Value Reference Range Interpretation Comments Lymphocytes # (test code = Lymphocytes 3.5 1.0-5.5 #) [facility] CenterYapwlvzWTGQTETMGU3546-70-15 07:58:00 Test Item Value Reference Range Interpretation Comments Basophils (test code = 0.2 See_Comment [Aut omated message] The Basophils) system which ge nerated this result tra nsmitted reference range : <=1.0. The reference r alee was not used to int erpret this result as normal/abnormal . [facility] CenterGgbeugrKZPPIUARFA0027-41-71 07:58:00 Test Item Value Reference Range Interpretation Comments Eosinophils (test code = 2.3 See_Comment [A utomated message] The Eosinophils) system which ge nerated this result tra nsmitted reference range : <=4.0. The reference r alee was not used to int erpret this result as normal/abnormal . [facility] CenterDjqsgwtSODDCZJWYH9922-69-64 07:58:00 Test Item Value Reference Range Interpretation Comments MCV (test code = MCV) 69.7 80.0-98.0 [facility] CenterCbbxnmwLQAJOBHHKS7623-64-46 07:58:00 Test Item Value Reference Range Interpretation Comments MCH (test code = MCH) 22.2 pg 27.0-31.0 [facility] CenterMwrncfvNOCHBERQQT5114-99-58 07:58:00 Test Item Value Reference Range Interpretation Comments Platelet (test code = Platelet) 377 133-450 [facility] CenterHyootlcQDKBNJUXKG9044-73-03 07:58:00 Test Item Value Reference Range Interpretation Comments MCHC (test code = MCHC) 31.9 32.0-36.0 [facility] CenterHizhxolYUERUXDQLB6453-27-18 07:58:00 Test Item Value Reference Range Interpretation Comments RDW (test code = RDW) 17.4 11.5-14.5 [facility] CenterCwjtdhfZKOTFBUQOU1367-81-56 07:58:00 Test Item Value Reference Range Interpretation Comments MPV (test code = MPV) 7.4 7.4-10.4 [facility] CenterKcvedbdANHBSKMBRJ6525-05-52 07:58:00 Test Item Value Reference Range Interpretation Comments RBC (test code = RBC) 4.56 4.20-5.40 [facility] CenterTunbvioZNDCZNEPDI7959-58-36 07:58:00 Test Item Value Reference Range Interpretation Comments Hgb (test code = Hgb) 10.1 12.0-16.0 [facility] CenterFttpxbyWIMOYGZSGT2142-07-76 07:58:00 Test Item Value Reference Range Interpretation Comments Hct (test code = Hct) 31.7 36.0-48.0 [facility] CenterWntlettWHWLICLVMJ2814-05-23 07:58:00 Test Item Value Reference Range Interpretation Comments WBC (test code = WBC) 9.1 3.7-10.4 [facility] CenterUmnpdmhILURBWUXXL7836-05-74 07:58:00 Test Item Value Reference Range Interpretation Comments PTT (test code = PTT) 21.4 s 22.9-35.8 [facility] CenterLpesnoaMUYBIUVHMM7704-49-67 07:58:00 Test Item Value Reference Range Interpretation Comments PT (test code = PT) 12.9 s 12.0-14.7 [facility] CenterHfblltxILDHMUSWRC7695-86-86 07:58:00 Test Item Value Reference Range Interpretation Comments INR (test code = INR) 0.99 1 0.85-1.17 [facility] CenterUfrdfbnLVDOYHAEEP6373-51-87 07:58:00 Test Item Value Reference Range Interpretation Comments Monocytes (test code = Monocytes) 6.9 2.0-12.0 [facility] CenterFspsiuhXLYNOJXSKC5983-01-91 07:58:00 Test Item Value Reference Range Interpretation Comments Segs (test code = Segs) 51.6 45.0-75.0 [facility] CenterRmzfwstRQCJTUDWDY3919-13-74 07:58:00 Test Item Value Reference Range Interpretation Comments Lymphocytes (test code = Lymphocytes) 39.0 20.0-40.0 [facility] CenterPvztatiETOOXNJHQP7842-59-47 07:58:00 Test Item Value Reference Range Interpretation Comments Eosinophils # (test code 0.2 See_Comment [A utomated message] The = Eosinophils #) system [facility] h generated this result tra nsmitted reference range : <=0.5. The reference r alee was not used to int erpret this result as normal/abnormal . [facility] CenterOowjkxnSCNXHVNBIU1166-92-33 07:58:00 Test Item Value Reference Range Interpretation Comments Microcyte (test code = 2+ *ABN*(08/12/18 Microcyte) 2:58 AM) [facility] CenterPfvbnxbTZPLUGFAKI8967-47-58 07:58:00 Test Item Value Reference Range Interpretation Comments Neutrophils # (test code = Neutrophils 4.7 1.5-8.1 #) [facility] CenterCmypeqsVPCDHLBAOE2271-05-28 07:58:00 Test Item Value Reference Range Interpretation Comments Monocytes # (test code 0.6 See_Comment [Aut omated message] The = Monocytes #) system which generated this result tra nsmitted reference range : <=0.8. The reference r alee was not used to int erpret this result as normal/abnormal . [facility] CenterByigdhzTGGTOZCYMF7254-35-98 07:58:00 Test Item Value Reference Range Interpretation Comments Lymphocytes # (test code = Lymphocytes 3.5 1.0-5.5 #) [facility] CenterEdqawfhXHUVZTOCGP4155-80-78 07:58:00 Test Item Value Reference Range Interpretation Comments Basophils (test code = 0.2 See_Comment [Aut omated message] The Basophils) system which ge nerated this result tra nsmitted reference range : <=1.0. The reference r alee was not used to int erpret this result as normal/abnormal . [facility] CenterEpebyzyONJAFXCJEE4879-92-41 07:58:00 Test Item Value Reference Range Interpretation Comments Eosinophils (test code = 2.3 See_Comment [A utomated message] The Eosinophils) system which ge nerated this result tra nsmitted reference range : <=4.0. The reference r alee was not used to int erpret this result as normal/abnormal . [facility] CenterBdrdwxhLRAHFHPJPJ7642-74-42 07:58:00 Test Item Value Reference Range Interpretation Comments MCV (test code = MCV) 69.7 80.0-98.0 [facility] CenterZgbfbxwXDZFTUQQXM7189-89-02 07:58:00 Test Item Value Reference Range Interpretation Comments MCH (test code = MCH) 22.2 pg 27.0-31.0 [facility] CenterBgxnefsYCLCLQPNUX8912-40-17 07:58:00 Test Item Value Reference Range Interpretation Comments Platelet (test code = Platelet) 377 133-450 [facility] CenterQrkyljxELYMYZRGOF3136-54-06 07:58:00 Test Item Value Reference Range Interpretation Comments MCHC (test code = MCHC) 31.9 32.0-36.0 [facility] CenterOswdyjbHBVVOHVTUW9958-33-08 07:58:00 Test Item Value Reference Range Interpretation Comments RDW (test code = RDW) 17.4 11.5-14.5 [facility] CenterAjuigplUFIHCLAVDX9892-26-78 07:58:00 Test Item Value Reference Range Interpretation Comments MPV (test code = MPV) 7.4 7.4-10.4 [facility] CenterStckalsYMYWFIVVMM5031-41-62 07:58:00 Test Item Value Reference Range Interpretation Comments RBC (test code = RBC) 4.56 4.20-5.40 [facility] CenterVgjvdhvBGRVLMSVAW9441-59-97 07:58:00 Test Item Value Reference Range Interpretation Comments Hgb (test code = Hgb) 10.1 12.0-16.0 [facility] CenterQunuvifKMRXSFQRAD1308-52-87 07:58:00 Test Item Value Reference Range Interpretation Comments Hct (test code = Hct) 31.7 36.0-48.0 [facility] CenterGwfekwkDIETAIUVPR8671-57-04 07:58:00 Test Item Value Reference Range Interpretation Comments WBC (test code = WBC) 9.1 3.7-10.4 [facility] CenterNiktsrnECLQIOMFWI0401-52-67 07:58:00 Test Item Value Reference Range Interpretation Comments PTT (test code = PTT) 21.4 s 22.9-35.8 [facility] CenterBeohscqGCAPGMIFNR5352-62-51 07:58:00 Test Item Value Reference Range Interpretation Comments PT (test code = PT) 12.9 s 12.0-14.7 [facility] CenterQrytluhCZQNOYGEVB0820-19-29 07:58:00 Test Item Value Reference Range Interpretation Comments INR (test code = INR) 0.99 1 0.85-1.17 [facility] CenterAkzybrkTMWNBNQXDK4345-43-66 07:58:00 Test Item Value Reference Range Interpretation Comments Monocytes (test code = Monocytes) 6.9 2.0-12.0 [facility] CenterQyzlkrlOQALKROSUM6990-18-19 07:58:00 Test Item Value Reference Range Interpretation Comments Segs (test code = Segs) 51.6 45.0-75.0 [facility] CenterVosydnpWUYONUIEZL0473-15-51 07:58:00 Test Item Value Reference Range Interpretation Comments Lymphocytes (test code = Lymphocytes) 39.0 20.0-40.0 [facility] CenterNzxeifmTSBJOSUDGO9113-85-84 07:58:00 Test Item Value Reference Range Interpretation Comments Eosinophils # (test code 0.2 See_Comment [A utomated message] The = Eosinophils #) system whic h generated this result tra nsmitted reference range : <=0.5. The reference r alee was not used to int erpret this result as normal/abnormal . [facility] CenterLtfgcfrCGLWJMUXBH2852-63-09 07:58:00 Test Item Value Reference Range Interpretation Comments Microcyte (test code = 2+ *ABN*(08/12/18 Microcyte) 2:58 AM) [facility] CenterBjwehegKJGPUWRUKQ9241-21-45 07:58:00 Test Item Value Reference Range Interpretation Comments Neutrophils # (test code = Neutrophils 4.7 1.5-8.1 #) [facility] CenterPonmbonQJORZNTQOH4950-29-86 07:58:00 Test Item Value Reference Range Interpretation Comments Monocytes # (test code 0.6 See_Comment [Aut omated message] The = Monocytes #) system which generated this result tra nsmitted reference range : <=0.8. The reference r alee was not used to int erpret this result as normal/abnormal . [facility] CenterZrtfireHRJEVEZJAQ8713-62-27 07:58:00 Test Item Value Reference Range Interpretation Comments Lymphocytes # (test code = Lymphocytes 3.5 1.0-5.5 #) [facility] CenterOhydimgBKXDIFOAXY0956-75-69 07:58:00 Test Item Value Reference Range Interpretation Comments Basophils (test code = 0.2 See_Comment [Aut omated message] The Basophils) system which ge nerated this result tra nsmitted reference range : <=1.0. The reference r alee was not used to int erpret this result as normal/abnormal . [facility] CenterKtewjisLYSDECMNVZ7739-35-60 07:58:00 Test Item Value Reference Range Interpretation Comments Eosinophils (test code = 2.3 See_Comment [A utomated message] The Eosinophils) system which ge nerated this result tra nsmitted reference range : <=4.0. The reference r alee was not used to int erpret this result as normal/abnormal . [facility] CenterZcukuwsRWSQOKWVMU9660-04-35 07:58:00 Test Item Value Reference Range Interpretation Comments MCV (test code = MCV) 69.7 80.0-98.0 [facility] CenterJwvyvzfYDFXEOFTGV9373-68-68 07:58:00 Test Item Value Reference Range Interpretation Comments MCH (test code = MCH) 22.2 pg 27.0-31.0 [facility] CenterDjrjfqzOBRBWGFUHL9114-66-97 07:58:00 Test Item Value Reference Range Interpretation Comments Platelet (test code = Platelet) 377 133-450 [facility] CenterSyppooaNUJJVXOFRL2546-35-32 07:58:00 Test Item Value Reference Range Interpretation Comments MCHC (test code = MCHC) 31.9 32.0-36.0 [facility] CenterSdcrgkhAOEXLTOXNH2523-71-62 07:58:00 Test Item Value Reference Range Interpretation Comments RDW (test code = RDW) 17.4 11.5-14.5 [facility] CenterMbfqlxyWPNGYCKKXH9759-40-65 07:58:00 Test Item Value Reference Range Interpretation Comments MPV (test code = MPV) 7.4 7.4-10.4 [facility] CenterOnbkqtoLYYNQMARLF4137-15-34 07:58:00 Test Item Value Reference Range Interpretation Comments RBC (test code = RBC) 4.56 4.20-5.40 [facility] CenterXlvycutNVIJRWBCWA5780-33-60 07:58:00 Test Item Value Reference Range Interpretation Comments Hgb (test code = Hgb) 10.1 12.0-16.0 [facility] CenterMptauwmWPDKIFRZWV7413-45-81 07:58:00 Test Item Value Reference Range Interpretation Comments Hct (test code = Hct) 31.7 36.0-48.0 [facility] CenterEnkjrjiDOWSAFPWUW4918-02-28 07:58:00 Test Item Value Reference Range Interpretation Comments WBC (test code = WBC) 9.1 3.7-10.4 [facility] CenterFocbnhsRHHICMAYAG1461-36-44 07:58:00 Test Item Value Reference Range Interpretation Comments PTT (test code = PTT) 21.4 s 22.9-35.8 [facility] CenterGobnqcnTORDBHGDDM8514-80-29 07:58:00 Test Item Value Reference Range Interpretation Comments PT (test code = PT) 12.9 s 12.0-14.7 [facility] CenterCyxjdsyBYCTAUIQZJ8362-41-14 07:58:00 Test Item Value Reference Range Interpretation Comments INR (test code = INR) 0.99 1 0.85-1.17 [facility] CenterLgplxjyXQPUNOTBVQ1952-89-26 07:58:00 Test Item Value Reference Range Interpretation Comments Monocytes (test code = Monocytes) 6.9 2.0-12.0 [facility] CenterVgnmhyqHASGNBWLFO0260-47-99 07:58:00 Test Item Value Reference Range Interpretation Comments Segs (test code = Segs) 51.6 45.0-75.0 [facility] CenterBvsgzrwNXLIIQLBEK2643-10-06 07:58:00 Test Item Value Reference Range Interpretation Comments Lymphocytes (test code = Lymphocytes) 39.0 20.0-40.0 [facility] CenterEshohgxESBVLVFTYQ8154-40-35 07:58:00 Test Item Value Reference Range Interpretation Comments Eosinophils # (test code 0.2 See_Comment [A utomated message] The = Eosinophils #) system whic h generated this result tra nsmitted reference range : <=0.5. The reference r alee was not used to int erpret this result as normal/abnormal . [facility] CenterVuvoaczMWGJFUEUTD7515-67-02 07:58:00 Test Item Value Reference Range Interpretation Comments Microcyte (test code = 2+ *ABN*(08/12/18 Microcyte) 2:58 AM) [facility] CenterIheefynGFYAFRGUER2585-35-90 07:58:00 Test Item Value Reference Range Interpretation Comments Neutrophils # (test code = Neutrophils 4.7 1.5-8.1 #) [facility] CenterBimrpctBFAWPFQOOU6234-21-14 07:58:00 Test Item Value Reference Range Interpretation Comments Monocytes # (test code 0.6 See_Comment [Aut omated message] The = Monocytes #) system which generated this result tra nsmitted reference range : <=0.8. The reference r alee was not used to int erpret this result as normal/abnormal . [facility] CenterOwnksriPBCIAWGLQT0246-80-07 07:58:00 Test Item Value Reference Range Interpretation Comments Lymphocytes # (test code = Lymphocytes 3.5 1.0-5.5 #) [facility] CenterDdlxkspRFEHVMLIJY6684-21-71 07:58:00 Test Item Value Reference Range Interpretation Comments Basophils (test code = 0.2 See_Comment [Aut omated message] The Basophils) system which ge nerated this result tra nsmitted reference range : <=1.0. The reference r alee was not used to int erpret this result as normal/abnormal . [facility] CenterLljzjhsMZHIIGXWFI3363-38-43 07:58:00 Test Item Value Reference Range Interpretation Comments Eosinophils (test code = 2.3 See_Comment [A utomated message] The Eosinophils) system which ge nerated this result tra nsmitted reference range : <=4.0. The reference r alee was not used to int erpret this result as normal/abnormal . [facility] CenterWllaerkTRMLJHQQSS2508-64-34 07:58:00 Test Item Value Reference Range Interpretation Comments MCV (test code = MCV) 69.7 80.0-98.0 [facility] CenterNjwyulhASCNPHVNMS2852-09-35 07:58:00 Test Item Value Reference Range Interpretation Comments MCH (test code = MCH) 22.2 pg 27.0-31.0 [facility] CenterWocfizzWFNAMDKCBE4717-76-86 07:58:00 Test Item Value Reference Range Interpretation Comments Platelet (test code = Platelet) 377 133-450 [facility] CenterOgeytgmHFBNTCHVML9316-16-41 07:58:00 Test Item Value Reference Range Interpretation Comments MCHC (test code = MCHC) 31.9 32.0-36.0 [facility] CenterSckbeypQEXGMDQPCE9829-21-77 07:58:00 Test Item Value Reference Range Interpretation Comments RDW (test code = RDW) 17.4 11.5-14.5 [facility] CenterRlintlgSISXOTFEVO5167-08-72 07:58:00 Test Item Value Reference Range Interpretation Comments MPV (test code = MPV) 7.4 7.4-10.4 [facility] CenterDuphdjlPXJMSSTUVW2002-58-96 07:58:00 Test Item Value Reference Range Interpretation Comments RBC (test code = RBC) 4.56 4.20-5.40 [facility] CenterOyfhfwnYVIAXZHSCO3916-73-36 07:58:00 Test Item Value Reference Range Interpretation Comments Hgb (test code = Hgb) 10.1 12.0-16.0 [facility] CenterVusuqeoFVCFUNDDQC7858-28-51 07:58:00 Test Item Value Reference Range Interpretation Comments Hct (test code = Hct) 31.7 36.0-48.0 [facility] CenterBbtkoahUKLZWYACRG1849-78-73 07:58:00 Test Item Value Reference Range Interpretation Comments WBC (test code = WBC) 9.1 3.7-10.4 [facility] CenterSbfwfcfGLXTSNLJQN9216-45-75 07:58:00 Test Item Value Reference Range Interpretation Comments PTT (test code = PTT) 21.4 s 22.9-35.8 [facility] CenterNybtakuXKGRTISLRF5069-96-21 07:58:00 Test Item Value Reference Range Interpretation Comments PT (test code = PT) 12.9 s 12.0-14.7 [facility] CenterGultqbpDTQSICYJAJ7798-51-98 07:58:00 Test Item Value Reference Range Interpretation Comments INR (test code = INR) 0.99 1 0.85-1.17 [facility] CenterCtzhdzgWLNYBRYFIC9817-91-15 07:58:00 Test Item Value Reference Range Interpretation Comments Monocytes (test code = Monocytes) 6.9 2.0-12.0 [facility] CenterIcxeisyVUBDYXLVAE2591-84-65 07:58:00 Test Item Value Reference Range Interpretation Comments Segs (test code = Segs) 51.6 45.0-75.0 [facility] CenterWgqwsrbGOYSKDKIOP8271-45-74 07:58:00 Test Item Value Reference Range Interpretation Comments Lymphocytes (test code = Lymphocytes) 39.0 20.0-40.0 [facility] CenterPndrpxfAXVCCZWQMI6031-95-90 07:58:00 Test Item Value Reference Range Interpretation Comments Eosinophils # (test code 0.2 See_Comment [A utomated message] The = Eosinophils #) system whic h generated this result tra nsmitted reference range : <=0.5. The reference r alee was not used to int erpret this result as normal/abnormal . [facility]MssojauUZSQMRGSBZ2783-90-86 07:58:00 Test Item Value Reference Range Interpretation Comments Microcyte (test code = 2+ *ABN*(08/12/18 Microcyte) 2:58 AM) [facility] CenterFlkczpmYAFBNXDCSJ0100-16-19 07:58:00 Test Item Value Reference Range Interpretation Comments Neutrophils # (test code = Neutrophils 4.7 1.5-8.1 #) [facility] CenterDukjjnvRRIQCNUBVT9511-67-49 07:58:00 Test Item Value Reference Range Interpretation Comments Monocytes # (test code 0.6 See_Comment [Aut omated message] The = Monocytes #) system which generated this result tra nsmitted reference range : <=0.8. The reference r alee was not used to int erpret this result as normal/abnormal . [facility] CenterAvuirmvNHDOGFZKPI5313-57-35 07:58:00 Test Item Value Reference Range Interpretation Comments Lymphocytes # (test code = Lymphocytes 3.5 1.0-5.5 #) [facility] CenterWrtsmhfREKNKHLJGT3305-84-05 07:58:00 Test Item Value Reference Range Interpretation Comments Basophils (test code = 0.2 See_Comment [Aut omated message] The Basophils) system which ge nerated this result tra nsmitted reference range : <=1.0. The reference r alee was not used to int erpret this result as normal/abnormal . [facility] CenterIdjykwzSGFBCGPGQD0333-03-89 07:58:00 Test Item Value Reference Range Interpretation Comments Eosinophils (test code = 2.3 See_Comment [A utomated message] The Eosinophils) system which ge nerated this result tra nsmitted reference range : <=4.0. The reference r alee was not used to int erpret this result as normal/abnormal . [facility] CenterRslgrvtMDHSSIMNPO7766-60-39 07:58:00 Test Item Value Reference Range Interpretation Comments MCV (test code = MCV) 69.7 80.0-98.0 [facility] CenterHrqjusaCHUQDAHBIN0799-43-08 07:58:00 Test Item Value Reference Range Interpretation Comments MCH (test code = MCH) 22.2 pg 27.0-31.0 [facility] CenterJqakzeuQMWZCUUUCO3418-78-72 07:58:00 Test Item Value Reference Range Interpretation Comments Platelet (test code = Platelet) 377 133-450 [facility] CenterCggrqljQOEAHONGET5281-88-10 07:58:00 Test Item Value Reference Range Interpretation Comments MCHC (test code = MCHC) 31.9 32.0-36.0 [facility] CenterXbuzhltRNPIJRPQHI4070-64-72 07:58:00 Test Item Value Reference Range Interpretation Comments RDW (test code = RDW) 17.4 11.5-14.5 [facility] CenterDbaqxacHQBFMJDFIQ1140-87-54 07:58:00 Test Item Value Reference Range Interpretation Comments MPV (test code = MPV) 7.4 7.4-10.4 [facility] CenterUseqsdrECBEAQGOPN5454-28-63 07:58:00 Test Item Value Reference Range Interpretation Comments RBC (test code = RBC) 4.56 4.20-5.40 [facility] CenterMfppewwWHZTNDWDDW4938-80-70 07:58:00 Test Item Value Reference Range Interpretation Comments Hgb (test code = Hgb) 10.1 12.0-16.0 [facility] CenterNqbislsKHHOWWMSGI5377-60-02 07:58:00 Test Item Value Reference Range Interpretation Comments Hct (test code = Hct) 31.7 36.0-48.0 [facility] CenterUmqfffdJECEOYCSKM8081-38-61 07:58:00 Test Item Value Reference Range Interpretation Comments WBC (test code = WBC) 9.1 3.7-10.4 [facility] CenterOzxgtmfCNFMZMKWWM6437-70-88 07:58:00 Test Item Value Reference Range Interpretation Comments PTT (test code = PTT) 21.4 s 22.9-35.8 [facility] CenterOqexuigEUQUSWEDPD5247-53-56 07:58:00 Test Item Value Reference Range Interpretation Comments PT (test code = PT) 12.9 s 12.0-14.7 [facility] CenterXdfgfolKABKRPDJWG8800-70-75 07:58:00 Test Item Value Reference Range Interpretation Comments INR (test code = INR) 0.99 1 0.85-1.17 [facility] CenterPzpglvzIANFFNCFHC5381-00-81 07:58:00 Test Item Value Reference Range Interpretation Comments Monocytes (test code = Monocytes) 6.9 2.0-12.0 [facility] CenterJpqsuumJKVPTUGCAZ0223-42-12 07:58:00 Test Item Value Reference Range Interpretation Comments Segs (test code = Segs) 51.6 45.0-75.0 [facility] CenterJhwaoqlZQZRYURFFZ8437-68-81 07:58:00 Test Item Value Reference Range Interpretation Comments Lymphocytes (test code = Lymphocytes) 39.0 20.0-40.0 [facility] CenterAdjlmvlOBNKRJWENQ7204-89-33 07:58:00 Test Item Value Reference Range Interpretation Comments Eosinophils # (test code 0.2 See_Comment [A utomated message] The = Eosinophils #) system whic h generated this result tra nsmitted reference range : <=0.5. The reference r alee was not used to int erpret this result as normal/abnormal . [facility] CenterCqkbdsfPHUVCGKBNT1970-60-77 07:58:00 Test Item Value Reference Range Interpretation Comments Microcyte (test code = 2+ *ABN*(08/12/18 Microcyte) 2:58 AM) [facility] CenterQxcqxkzYYSDQYEGHE3728-51-09 07:58:00 Test Item Value Reference Range Interpretation Comments Neutrophils # (test code = Neutrophils 4.7 1.5-8.1 #) [facility] CenterZcvywvlHXDYYABFEE4488-91-46 07:58:00 Test Item Value Reference Range Interpretation Comments Monocytes # (test code 0.6 See_Comment [Aut omated message] The = Monocytes #) system which generated this result tra nsmitted reference range : <=0.8. The reference r alee was not used to int erpret this result as normal/abnormal . [facility] CenterOmiudztNAOIIQIWRU8073-04-35 07:58:00 Test Item Value Reference Range Interpretation Comments Lymphocytes # (test code = Lymphocytes 3.5 1.0-5.5 #) [facility] CenterBlovqipTHWWYRJSPS7910-98-12 07:58:00 Test Item Value Reference Range Interpretation Comments Basophils (test code = 0.2 See_Comment [Aut omated message] The Basophils) system which ge nerated this result tra nsmitted reference range : <=1.0. The reference r alee was not used to int erpret this result as normal/abnormal . [facility] CenterSqipkuoFLXYOUOVDM0848-45-93 07:58:00 Test Item Value Reference Range Interpretation Comments Eosinophils (test code = 2.3 See_Comment [A utomated message] The Eosinophils) system which ge nerated this result tra nsmitted reference range : <=4.0. The reference r alee was not used to int erpret this result as normal/abnormal . [facility] CenterKoeudjzJAQEIAVDKS3993-02-80 07:58:00 Test Item Value Reference Range Interpretation Comments MCV (test code = MCV) 69.7 80.0-98.0 [facility] CenterEljxkkrUXYERZKUMX3244-25-80 07:58:00 Test Item Value Reference Range Interpretation Comments MCH (test code = MCH) 22.2 pg 27.0-31.0 [facility]CxfupwhGAVHTYRUDK1587-97-32 07:58:00 Test Item Value Reference Range Interpretation Comments Platelet (test code = Platelet) 377 133-450 [facility] HospitalDnoifyhCVEHNENYSB4711-85-09 07:58:00 Test Item Value Reference Range Interpretation Comments MCHC (test code = MCHC) 31.9 32.0-36.0 [facility] CenterMutidwkYTWANVWOEO4027-67-13 07:58:00 Test Item Value Reference Range Interpretation Comments RDW (test code = RDW) 17.4 11.5-14.5 [facility] HospitalZxmvvowWWYVRSWRNA5673-26-34 07:58:00 Test Item Value Reference Range Interpretation Comments MPV (test code = MPV) 7.4 7.4-10.4 [facility] CenterAphtcwiGKWHPFJSPR8320-03-04 07:58:00 Test Item Value Reference Range Interpretation Comments RBC (test code = RBC) 4.56 4.20-5.40 [facility] CenterYnlxnsxABFLURVMCP7439-31-88 07:58:00 Test Item Value Reference Range Interpretation Comments Hgb (test code = Hgb) 10.1 12.0-16.0 [facility] HospitalXecilsuKJQPNFEIDG1274-24-44 07:58:00 Test Item Value Reference Range Interpretation Comments Hct (test code = Hct) 31.7 36.0-48.0 [facility] CenterMhevatjBDGBJJCYAM9104-46-94 07:58:00 Test Item Value Reference Range Interpretation Comments WBC (test code = WBC) 9.1 3.7-10.4 [facility] CenterArtzkqhGKJCZLEAPG8290-53-88 07:58:00 Test Item Value Reference Range Interpretation Comments PTT (test code = PTT) 21.4 s 22.9-35.8 [facility] HospitalWeqlppySANHKLZBLZ7778-81-27 07:58:00 Test Item Value Reference Range Interpretation Comments PT (test code = PT) 12.9 s 12.0-14.7 [facility] HospitalTsvrqgsLHPTDEOMDW2544-21-01 07:58:00 Test Item Value Reference Range Interpretation Comments INR (test code = INR) 0.99 1 0.85-1.17 [facility] DDAQFOJ4740-95-37 07:36:00 Test Item Value Reference Range Interpretation Comments BNP (test code = BNP) 22 [facility] [id number] 07:36:00 Test Item Value Reference Range Interpretation Comments Total CK (test code = Total CK) 42 12-191 [facility]annCARD[facility] MNLGVID0013-47-98 07:36:00 Test Item Value Reference Range Interpretation Comments Troponin-I (test code no gt See_Comment [Auto mated message] The = Troponin-I) system which g enerated this result transmit kenroy reference range : <=0.40. The reference r alee was not used to interpr et this result as elton l/abnormal. [facility] CenterBl[facility] [employer] [id number] 07:36:00 Test Item Value Reference Range Interpretation Comments A/G Ratio (test code = A/G Ratio) 0.8 1 0.7-1.6 [facility] [id number] 07:36:00 Test Item Value Reference Range Interpretation Comments AGAP (test code = AGAP) 11.8 10.0-20.0 [facility] [id number] 07:36:00 Test Item Value Reference Range Interpretation Comments B/C Ratio (test code = B/C Ratio) 14 1 6-25 [facility] [employer] [facility] [id number] 07:36:00 Test Item Value Reference Range Interpretation Comments Globulin (test code = Globulin) 4.7 2.7-4.2 [facility] [employer] [facility] [id number] 07:36:00 Test Item Value Reference Range Interpretation Comments eGFR (test code = eGFR) 80 [facility] [employer] [facility] [id number] 07:36:00 Test Item Value Reference Range Interpretation Comments AST (test code = AST) 15 See_Comment [Auto mated message] The system which ge nerated this result transmit kenroy reference range : <=37. The reference range was not used to interpr et this result as elton l/abnormal. [facility] [employer] [facility] [id number] 07:36:00 Test Item Value Reference Range Interpretation Comments Alk Phos (test code = Alk Phos) 110 39-136 [facility] [employer] [facility] [id number] 07:36:00 Test Item Value Reference Range Interpretation Comments ALT (test code = ALT) 20 See_Comment [Auto mated message] The system which ge nerated this result transmit kenroy reference range : <=65. The reference range was not used to interpr et this result as elton l/abnormal. [facility] HospitalBuscoTurno [id number] 07:36:00 Test Item Value Reference Range Interpretation Comments Bili Total (test code = Bili Total) 0.3 0.2-1.3 [facility]2019-05-24 07:36:00 Test Item Value Reference Range Interpretation Comments Creatinine Lvl (test code = Creatinine 0.92 0.50-1.40 Lvl) [facility]2019-05-24 07:36:00 Test Item Value Reference Range Interpretation Comments Chloride Lvl (test code = Chloride Lvl) 100 95-109 [facility] [employer] [facility] [id number] 07:36:00 Test Item Value Reference Range Interpretation Comments CO2 (test code = CO2) - [facility] [id number] 07:36:00 Test Item Value Reference Range Interpretation Comments Sodium Lvl (test code = Sodium Lvl) 132 135-145 [facility]2019-05-24 07:36:00 Test Item Value Reference Range Interpretation Comments Potassium Lvl (test code = Potassium 3.8 3.5-5.1 Lvl) [facility] [id number] 07:36:00 Test Item Value Reference Range Interpretation Comments Calcium Lvl (test code = Calcium Lvl) 9.4 8.5-10.5 [facility] [id number] 07:36:00 Test Item Value Reference Range Interpretation Comments Total Protein (test code = Total 8.5 6.4-8.4 Protein) [facility] [id number] 07:36:00 Test Item Value Reference Range Interpretation Comments Albumin Lvl (test code = Albumin Lvl) 3.8 3.5-5.0 [facility] [id number] 07:36:00 Test Item Value Reference Range Interpretation Comments Glucose Lvl (test code = Glucose Lvl) 87 70-99 [facility] [id number] 07:36:00 Test Item Value Reference Range Interpretation Comments BUN (test code = BUN) 13 - [facility] HospitalKnkhkzbJRHDOBAFYTAMB9287-51-40 07:36:00 Test Item Value Reference Range Interpretation Comments S Preg (test code = S Negative *NA*(08/12/18 Preg) 2:36 AM) [facility] HospitalCARD[facility] [id number] 07:36:00 Test Item Value Reference Range Interpretation Comments BNP (test code = BNP) 22 [facility] CenterClassWalletSAINT JO[facility] [id number] 07:36:00 Test Item Value Reference Range Interpretation Comments Total CK (test code = Total CK) 42 12-191 [facility] HospitalFigmentSA[facility] [id number] 07:36:00 Test Item Value Reference Range Interpretation Comments Troponin-I (test code no gt See_Comment [Auto mated message] The = Troponin-I) system which g enerated this result transmit kenroy reference range : <=0.40. The reference r alee was not used to interpr et this result as elton l/abnormal. [facility] [employer]2019-05-24 07:36:00 Test Item Value Reference Range Interpretation Comments A/G Ratio (test code = A/G Ratio) 0.8 1 0.7-1.6 [facility] [employer] [facility] [id number] 07:36:00 Test Item Value Reference Range Interpretation Comments AGAP (test code = AGAP) 11.8 10.0-20.0 [facility] [employer]2019-05-24 07:36:00 Test Item Value Reference Range Interpretation Comments B/C Ratio (test code = B/C Ratio) 14 1 6-25 [facility] [employer] [id number] 07:36:00 Test Item Value Reference Range Interpretation Comments Globulin (test code = Globulin) 4.7 2.7-4.2 [facility] [id number] 07:36:00 Test Item Value Reference Range Interpretation Comments eGFR (test code = eGFR) 80 [facility] [employer] [id number] 07:36:00 Test Item Value Reference Range Interpretation Comments AST (test code = AST) 15 See_Comment [Auto mated message] The system which ge nerated this result transmit kenroy reference range : <=37. The reference range was not used to interpr et this result as elton l/abnormal. [facility] [employer]2019-05-24 07:36:00 Test Item Value Reference Range Interpretation Comments Alk Phos (test code = Alk Phos) 110 39-136 [facility] [employer]2019-05-24 07:36:00 Test Item Value Reference Range Interpretation Comments ALT (test code = ALT) 20 See_Comment [Auto mated message] The system which ge nerated this result transmit kenroy reference range : <=65. The reference range was not used to interpr et this result as elton l/abnormal. [facility]2019-05-24 07:36:00 Test Item Value Reference Range Interpretation Comments Bili Total (test code = Bili Total) 0.3 0.2-1.3 [facility]2019-05-24 07:36:00 Test Item Value Reference Range Interpretation Comments Creatinine Lvl (test code = Creatinine 0.92 0.50-1.40 Lvl) [facility]2019-05-24 07:36:00 Test Item Value Reference Range Interpretation Comments Chloride Lvl (test code = Chloride Lvl) 100 95-109 [facility]2019-05-24 07:36:00 Test Item Value Reference Range Interpretation Comments CO2 (test code = CO2) 24 24-32 [facility]2019-05-24 07:36:00 Test Item Value Reference Range Interpretation Comments Sodium Lvl (test code = Sodium Lvl) 132 135-145 [facility]2019-05-24 07:36:00 Test Item Value Reference Range Interpretation Comments Potassium Lvl (test code = Potassium 3.8 3.5-5.1 Lvl) [facility]2019-05-24 07:36:00 Test Item Value Reference Range Interpretation Comments Calcium Lvl (test code = Calcium Lvl) 9.4 8.5-10.5 [facility]2019-05-24 07:36:00 Test Item Value Reference Range Interpretation Comments Total Protein (test code = Total 8.5 6.4-8.4 Protein) [facility]2019-05-24 07:36:00 Test Item Value Reference Range Interpretation Comments Albumin Lvl (test code = Albumin Lvl) 3.8 3.5-5.0 [facility]2019-05-24 07:36:00 Test Item Value Reference Range Interpretation Comments Glucose Lvl (test code = Glucose Lvl) 87 70-99 [facility]2019-05-24 07:36:00 Test Item Value Reference Range Interpretation Comments BUN (test code = BUN) 13 7-22 [id number] 07:36:00 Test Item Value Reference Range Interpretation Comments S Preg (test code = S Negative *NA*(08/12/18 Preg) 2:36 AM) [facility] [employer]2019-05-24 07:36:00 Test Item Value Reference Range Interpretation Comments BNP (test code = BNP) 22 [facility] [employer]2019-05-24 07:36:00 Test Item Value Reference Range Interpretation Comments Total CK (test code = Total CK) 42 12-191 [facility] [employer]2019-05-24 07:36:00 Test Item Value Reference Range Interpretation Comments Troponin-I (test code no gt See_Comment [Auto mated message] The = Troponin-I) system which g enerated this result transmit kenroy reference range : <=0.40. The reference r alee was not used to interpr et this result as elton l/abnormal. [facility] [employer]2019-05-24 07:36:00 Test Item Value Reference Range Interpretation Comments A/G Ratio (test code = A/G Ratio) 0.8 1 0.7-1.6 [facility] [employer]2019-05-24 07:36:00 Test Item Value Reference Range Interpretation Comments AGAP (test code = AGAP) 11.8 10.0-20.0 [facility] [employer]2019-05-24 07:36:00 Test Item Value Reference Range Interpretation Comments B/C Ratio (test code = B/C Ratio) 14 1 6-25 [facility] [employer]2019-05-24 07:36:00 Test Item Value Reference Range Interpretation Comments Globulin (test code = Globulin) 4.7 2.7-4.2 [facility] [employer]2019-05-24 07:36:00 Test Item Value Reference Range Interpretation Comments eGFR (test code = eGFR) 80 [facility] [employer]2019-05-24 07:36:00 Test Item Value Reference Range Interpretation Comments AST (test code = AST) 15 See_Comment [Auto mated message] The system which ge nerated this result transmit kenroy reference range : <=37. The reference range was not used to interpr et this result as elton l/abnormal. [employer]2019-05-24 07:36:00 Test Item Value Reference Range Interpretation Comments Alk Phos (test code = Alk Phos) 110 39-136 [facility]2019-05-24 07:36:00 Test Item Value Reference Range Interpretation Comments ALT (test code = ALT) 20 See_Comment [Auto mated message] The system which ge nerated this result transmit kenroy reference range : <=65. The reference range was not used to interpr et this result as elton l/abnormal. [facility]2019-05-24 07:36:00 Test Item Value Reference Range Interpretation Comments Bili Total (test code = Bili Total) 0.3 0.2-1.3 [facility]2019-05-24 07:36:00 Test Item Value Reference Range Interpretation Comments Creatinine Lvl (test code = Creatinine 0.92 0.50-1.40 Lvl) [facility]2019-05-24 07:36:00 Test Item Value Reference Range Interpretation Comments Chloride Lvl (test code = Chloride Lvl) 100 95-109 [facility]2019-05-24 07:36:00 Test Item Value Reference Range Interpretation Comments CO2 (test code = CO2) 24 24-32 [place] 200509-05-24 07:36:00 Test Item Value Reference Range Interpretation Comments Sodium Lvl (test code = Sodium Lvl) 132 135-145 [facility]2019-05-24 07:36:00 Test Item Value Reference Range Interpretation Comments Potassium Lvl (test code = Potassium 3.8 3.5-5.1 Lvl) [facility]2019-05-24 07:36:00 Test Item Value Reference Range Interpretation Comments Calcium Lvl (test code = Calcium Lvl) 9.4 8.5-10.5 [facility]2019-05-24 07:36:00 Test Item Value Reference Range Interpretation Comments Total Protein (test code = Total 8.5 6.4-8.4 Protein) [facility]2019-05-24 07:36:00 Test Item Value Reference Range Interpretation Comments Albumin Lvl (test code = Albumin Lvl) 3.8 3.5-5.0 [facility]2019-05-24 07:36:00 Test Item Value Reference Range Interpretation Comments Glucose Lvl (test code = Glucose Lvl) 87 70-99 [facility]2019-05-24 07:36:00 Test Item Value Reference Range Interpretation Comments BUN (test code = BUN) 13 7-22 [facility] HospitalHukallfXEJKJVOSPPNVF9168-72-45 07:36:00 Test Item Value Reference Range Interpretation Comments S Preg (test code = S Negative *NA*(08/12/18 Preg) 2:36 AM) [facility] [id number] 07:36:00 Test Item Value Reference Range Interpretation Comments BNP (test code = BNP) 22 [facility] [id number] 07:36:00 Test Item Value Reference Range Interpretation Comments Total CK (test code = Total CK) 42 12-191 [facility] [id number] 07:36:00 Test Item Value Reference Range Interpretation Comments Troponin-I (test code no gt See_Comment [Auto mated message] The = Troponin-I) system which g enerated this result transmit kenroy reference range : <=0.40. The reference r aele was not used to interpr et this result as elton l/abnormal. [facility] [employer]2019-05-24 07:36:00 Test Item Value Reference Range Interpretation Comments A/G Ratio (test code = A/G Ratio) 0.8 1 0.7-1.6 [facility] [employer]2019-05-24 07:36:00 Test Item Value Reference Range Interpretation Comments AGAP (test code = AGAP) 11.8 10.0-20.0 [facility] [employer]2019-05-24 07:36:00 Test Item Value Reference Range Interpretation Comments B/C Ratio (test code = B/C Ratio) 14 1 6-25 [facility] [employer]2019-05-24 07:36:00 Test Item Value Reference Range Interpretation Comments Globulin (test code = Globulin) 4.7 2.7-4.2 [facility] [employer]2019-05-24 07:36:00 Test Item Value Reference Range Interpretation Comments eGFR (test code = eGFR) 80 [facility] [employer]2019-05-24 07:36:00 Test Item Value Reference Range Interpretation Comments AST (test code = AST) 15 See_Comment [Auto mated message] The system which ge nerated this result transmit kenroy reference range : <=37. The reference range was not used to interpr et this result as elton l/abnormal. [facility]2019-05-24 07:36:00 Test Item Value Reference Range Interpretation Comments Alk Phos (test code = Alk Phos) 110 39-136 [facility]2019-05-24 07:36:00 Test Item Value Reference Range Interpretation Comments ALT (test code = ALT) 20 See_Comment [Auto mated message] The system which ge nerated this result transmit kenroy reference range : <=65. The reference range was not used to interpr et this result as elton l/abnormal. [facility]2019-05-24 07:36:00 Test Item Value Reference Range Interpretation Comments Bili Total (test code = Bili Total) 0.3 0.2-1.3 [facility]2019-05-24 07:36:00 Test Item Value Reference Range Interpretation Comments Creatinine Lvl (test code = Creatinine 0.92 0.50-1.40 Lvl) [facility]2019-05-24 07:36:00 Test Item Value Reference Range Interpretation Comments Chloride Lvl (test code = Chloride Lvl) 100 95-109 [facility]2019-05-24 07:36:00 Test Item Value Reference Range Interpretation Comments CO2 (test code = CO2) 24 24-32 [facility]2019-05-24 07:36:00 Test Item Value Reference Range Interpretation Comments Sodium Lvl (test code = Sodium Lvl) 132 135-145 [facility]2019-05-24 07:36:00 Test Item Value Reference Range Interpretation Comments Potassium Lvl (test code = Potassium 3.8 3.5-5.1 Lvl) [facility]2019-05-24 07:36:00 Test Item Value Reference Range Interpretation Comments Calcium Lvl (test code = Calcium Lvl) 9.4 8.5-10.5 [facility]2019-05-24 07:36:00 Test Item Value Reference Range Interpretation Comments Total Protein (test code = Total 8.5 6.4-8.4 Protein) [facility]2019-05-24 07:36:00 Test Item Value Reference Range Interpretation Comments Albumin Lvl (test code = Albumin Lvl) 3.8 3.5-5.0 [facility]2019-05-24 07:36:00 Test Item Value Reference Range Interpretation Comments Glucose Lvl (test code = Glucose Lvl) 87 70-99 [facility] [employer] [id number] 07:36:00 Test Item Value Reference Range Interpretation Comments BUN (test code = BUN) 13 7-22 [facility]JauxxfoVRSKBPGNZBYBS8693-04-39 07:36:00 Test Item Value Reference Range Interpretation Comments S Preg (test code = S Negative *NA*(08/12/18 Preg) 2:36 AM) [facility] [id number] 07:36:00 Test Item Value Reference Range Interpretation Comments BNP (test code = BNP) 22 [facility] 07:36:00 Test Item Value Reference Range Interpretation Comments Total CK (test code = Total CK) 42 12-191 [facility] CenterCytoSolv [id number] 07:36:00 Test Item Value Reference Range Interpretation Comments Troponin-I (test code no gt See_Comment [Auto mated message] The = Troponin-I) system which g enerated this result transmit kenroy reference range : <=0.40. The reference r alee was not used to interpr et this result as elton l/abnormal. [facility] [employer]2019-05-24 07:36:00 Test Item Value Reference Range Interpretation Comments A/G Ratio (test code = A/G Ratio) 0.8 1 0.7-1.6 [facility] [employer]2019-05-24 07:36:00 Test Item Value Reference Range Interpretation Comments AGAP (test code = AGAP) 11.8 10.0-20.0 [facility] [employer]2019-05-24 07:36:00 Test Item Value Reference Range Interpretation Comments B/C Ratio (test code = B/C Ratio) 14 1 6-25 [facility] [employer]2019-05-24 07:36:00 Test Item Value Reference Range Interpretation Comments Globulin (test code = Globulin) 4.7 2.7-4.2 [facility] [employer]2019-05-24 07:36:00 Test Item Value Reference Range Interpretation Comments eGFR (test code = eGFR) 80 [facility] [employer]2019-05-24 07:36:00 Test Item Value Reference Range Interpretation Comments AST (test code = AST) 15 See_Comment [Auto mated message] The system which ge nerated this result transmit kenroy reference range : <=37. The reference range was not used to interpr et this result as elton l/abnormal. [facility]2019-05-24 07:36:00 Test Item Value Reference Range Interpretation Comments Alk Phos (test code = Alk Phos) 110 39-136 [facility]2019-05-24 07:36:00 Test Item Value Reference Range Interpretation Comments ALT (test code = ALT) 20 See_Comment [Auto mated message] The system which ge nerated this result transmit kenroy reference range : <=65. The reference range was not used to interpr et this result as elton l/abnormal. [facility]2019-05-24 07:36:00 Test Item Value Reference Range Interpretation Comments Bili Total (test code = Bili Total) 0.3 0.2-1.3 [facility]2019-05-24 07:36:00 Test Item Value Reference Range Interpretation Comments Creatinine Lvl (test code = Creatinine 0.92 0.50-1.40 Lvl) [facility]2019-05-24 07:36:00 Test Item Value Reference Range Interpretation Comments Chloride Lvl (test code = Chloride Lvl) 100 95-109 [facility]2019-05-24 07:36:00 Test Item Value Reference Range Interpretation Comments CO2 (test code = CO2) 24 24-32 [facility]2019-05-24 07:36:00 Test Item Value Reference Range Interpretation Comments Sodium Lvl (test code = Sodium Lvl) 132 135-145 [facility] CenterBl[facility] [employer] [id number] 07:36:00 Test Item Value Reference Range Interpretation Comments Potassium Lvl (test code = Potassium 3.8 3.5-5.1 Lvl) [facility] CenterWallStripWILSON MEDICAL [id number] 07:36:00 Test Item Value Reference Range Interpretation Comments Calcium Lvl (test code = Calcium Lvl) 9.4 8.5-10.5 [place] 200509-05-24 07:36:00 Test Item Value Reference Range Interpretation Comments Total Protein (test code = Total 8.5 6.4-8.4 Protein) [facility]2019-05-24 07:36:00 Test Item Value Reference Range Interpretation Comments Albumin Lvl (test code = Albumin Lvl) 3.8 3.5-5.0 [facility] [employer]2019-05-24 07:36:00 Test Item Value Reference Range Interpretation Comments Glucose Lvl (test code = Glucose Lvl) 87 70-99 [facility] [employer] [id number] 07:36:00 Test Item Value Reference Range Interpretation Comments BUN (test code = BUN) 13 7-22 [facility] Hospi[id number] 07:36:00 Test Item Value Reference Range Interpretation Comments S Preg (test code = S Negative *NA*(08/12/18 Preg) 2:36 AM) [facility] [employer]2019-05-24 07:36:00 Test Item Value Reference Range Interpretation Comments BNP (test code = BNP) 22 [facility] 07:36:00 Test Item Value Reference Range Interpretation Comments Total CK (test code = Total CK) 42 12-191 [facility] 07:36:00 Test Item Value Reference Range Interpretation Comments Troponin-I (test code no gt See_Comment [Auto mated message] The = Troponin-I) system which g enerated this result transmit kenroy reference range : <=0.40. The reference r alee was not used to interpr et this result as elton l/abnormal. [facility] [employer]2019-05-24 07:36:00 Test Item Value Reference Range Interpretation Comments A/G Ratio (test code = A/G Ratio) 0.8 1 0.7-1.6 [facility] [employer]2019-05-24 07:36:00 Test Item Value Reference Range Interpretation Comments AGAP (test code = AGAP) 11.8 10.0-20.0 [facility] [employer]2019-05-24 07:36:00 Test Item Value Reference Range Interpretation Comments B/C Ratio (test code = B/C Ratio) 14 1 6-25 [facility] [employer]2019-05-24 07:36:00 Test Item Value Reference Range Interpretation Comments Globulin (test code = Globulin) 4.7 2.7-4.2 [facility] [employer]2019-05-24 07:36:00 Test Item Value Reference Range Interpretation Comments eGFR (test code = eGFR) 80 [facility]2019-05-24 07:36:00 Test Item Value Reference Range Interpretation Comments AST (test code = AST) 15 See_Comment [Auto mated message] The system which ge nerated this result transmit kenroy reference range : <=37. The reference range was not used to interpr et this result as elton l/abnormal. [facility]2019-05-24 07:36:00 Test Item Value Reference Range Interpretation Comments Alk Phos (test code = Alk Phos) 110 39-136 [facility]2019-05-24 07:36:00 Test Item Value Reference Range Interpretation Comments ALT (test code = ALT) 20 See_Comment [Auto mated message] The system which ge nerated this result transmit kenroy reference range : <=65. The reference range was not used to interpr et this result as elton l/abnormal. [facility]2019-05-24 07:36:00 Test Item Value Reference Range Interpretation Comments Bili Total (test code = Bili Total) 0.3 0.2-1.3 [place] 200509-05-24 07:36:00 Test Item Value Reference Range Interpretation Comments Creatinine Lvl (test code = Creatinine 0.92 0.50-1.40 Lvl) [facility]2019-05-24 07:36:00 Test Item Value Reference Range Interpretation Comments Chloride Lvl (test code = Chloride Lvl) 100 95-109 [facility]2019-05-24 07:36:00 Test Item Value Reference Range Interpretation Comments CO2 (test code = CO2) 24 24-32 [facility]2019-05-24 07:36:00 Test Item Value Reference Range Interpretation Comments Sodium Lvl (test code = Sodium Lvl) 132 135-145 [facility]2019-05-24 07:36:00 Test Item Value Reference Range Interpretation Comments Potassium Lvl (test code = Potassium 3.8 3.5-5.1 Lvl) [facility]2019-05-24 07:36:00 Test Item Value Reference Range Interpretation Comments Calcium Lvl (test code = Calcium Lvl) 9.4 8.5-10.5 [facility]2019-05-24 07:36:00 Test Item Value Reference Range Interpretation Comments Total Protein (test code = Total 8.5 6.4-8.4 Protein) [facility] [id number] 07:36:00 Test Item Value Reference Range Interpretation Comments Albumin Lvl (test code = Albumin Lvl) 3.8 3.5-5.0 [facility] CenterBl[facility] [employer] [id number] 07:36:00 Test Item Value Reference Range Interpretation Comments Glucose Lvl (test code = Glucose Lvl) 87 70-99 [facility] [employer] [id number] 07:36:00 Test Item Value Reference Range Interpretation Comments BUN (test code = BUN) 13 7-22 [facility] HospitalGelhanvDQTWUMOCUPGOB9026-02-05 07:36:00 Test Item Value Reference Range Interpretation Comments S Preg (test code = S Negative *NA*(08/12/18 Preg) 2:36 AM) [facility] 07:36:00 Test Item Value Reference Range Interpretation Comments BNP (test code = BNP) 22 [facility] 07:36:00 Test Item Value Reference Range Interpretation Comments Total CK (test code = Total CK) 42 12-191 [facility] HospitalGIGA [id number] 07:36:00 Test Item Value Reference Range Interpretation Comments Troponin-I (test code no gt See_Comment [Auto mated message] The = Troponin-I) system which g enerated this result transmit kenroy reference range : <=0.40. The reference r alee was not used to interpr et this result as elton l/abnormal. [facility] [employer]2019-05-24 07:36:00 Test Item Value Reference Range Interpretation Comments A/G Ratio (test code = A/G Ratio) 0.8 1 0.7-1.6 [facility] [id number] 07:36:00 Test Item Value Reference Range Interpretation Comments AGAP (test code = AGAP) 11.8 10.0-20.0 [facility] [id number] 07:36:00 Test Item Value Reference Range Interpretation Comments B/C Ratio (test code = B/C Ratio) 14 1 6-25 [facility] CenterOpbeatCQGZB1167-01-01 07:36:00 Test Item Value Reference Range Interpretation Comments Globulin (test code = Globulin) 4.7 2.7-4.2 [facility]2019-05-24 07:36:00 Test Item Value Reference Range Interpretation Comments eGFR (test code = eGFR) 80 [facility]2019-05-24 07:36:00 Test Item Value Reference Range Interpretation Comments AST (test code = AST) 15 See_Comment [Auto mated message] The system which ge nerated this result transmit kenroy reference range : <=37. The reference range was not used to interpr et this result as elton l/abnormal. [facility]2019-05-24 07:36:00 Test Item Value Reference Range Interpretation Comments Alk Phos (test code = Alk Phos) 110 39-136 [facility]2019-05-24 07:36:00 Test Item Value Reference Range Interpretation Comments ALT (test code = ALT) 20 See_Comment [Auto mated message] The system which ge nerated this result transmit kenroy reference range : <=65. The reference range was not used to interpr et this result as elton l/abnormal. [facility]2019-05-24 07:36:00 Test Item Value Reference Range Interpretation Comments Bili Total (test code = Bili Total) 0.3 0.2-1.3 [facility]2019-05-24 07:36:00 Test Item Value Reference Range Interpretation Comments Creatinine Lvl (test code = Creatinine 0.92 0.50-1.40 Lvl) [facility]2019-05-24 07:36:00 Test Item Value Reference Range Interpretation Comments Chloride Lvl (test code = Chloride Lvl) 100 95-109 [facility]2019-05-24 07:36:00 Test Item Value Reference Range Interpretation Comments CO2 (test code = CO2) 24 24-32 [facility]2019-05-24 07:36:00 Test Item Value Reference Range Interpretation Comments Sodium Lvl (test code = Sodium Lvl) 132 135-145 [facility]2019-05-24 07:36:00 Test Item Value Reference Range Interpretation Comments Potassium Lvl (test code = Potassium 3.8 3.5-5.1 Lvl) [facility]2019-05-24 07:36:00 Test Item Value Reference Range Interpretation Comments Calcium Lvl (test code = Calcium Lvl) 9.4 8.5-10.5 [facility] [employer] [id number] 07:36:00 Test Item Value Reference Range Interpretation Comments Total Protein (test code = Total 8.5 6.4-8.4 Protein) [facility] [employer] [facility] [id number] 07:36:00 Test Item Value Reference Range Interpretation Comments Albumin Lvl (test code = Albumin Lvl) 3.8 3.5-5.0 [facility] CenterBl[facility] [employer] [id number] 07:36:00 Test Item Value Reference Range Interpretation Comments Glucose Lvl (test code = Glucose Lvl) 87 70-99 [facility] [employer] [id number] 07:36:00 Test Item Value Reference Range Interpretation Comments BUN (test code = BUN) 13 7-22 [facility] HospitalOnmejiiDPLKOEBGZDMVM4460-23-75 07:36:00 Test Item Value Reference Range Interpretation Comments S Preg (test code = S Negative *NA*(08/12/18 Preg) 2:36 AM) [facility] 07:36:00 Test Item Value Reference Range Interpretation Comments BNP (test code = BNP) 22 [facility] 07:36:00 Test Item Value Reference Range Interpretation Comments Total CK (test code = Total CK) 42 12-191 [facility] HospitaldocTrackr [id number] 07:36:00 Test Item Value Reference Range Interpretation Comments Troponin-I (test code no gt See_Comment [Auto mated message] The = Troponin-I) system which g enerated this result transmit kenroy reference range : <=0.40. The reference r alee was not used to interpr et this result as elton l/abnormal. [facility] [employer]2019-05-24 07:36:00 Test Item Value Reference Range Interpretation Comments A/G Ratio (test code = A/G Ratio) 0.8 1 0.7-1.6 [facility] CenterBl[facility] [employer] [id number] 07:36:00 Test Item Value Reference Range Interpretation Comments AGAP (test code = AGAP) 11.8 10.0-20.0 [facility] [employer] [id number] 07:36:00 Test Item Value Reference Range Interpretation Comments B/C Ratio (test code = B/C Ratio) 14 1 6-25 [place] 200509-05-24 07:36:00 Test Item Value Reference Range Interpretation Comments Globulin (test code = Globulin) 4.7 2.7-4.2 [place] 200509-05-24 07:36:00 Test Item Value Reference Range Interpretation Comments eGFR (test code = eGFR) 80 [place] 200509-05-24 07:36:00 Test Item Value Reference Range Interpretation Comments AST (test code = AST) 15 See_Comment [Auto mated message] The system which ge nerated this result transmit kenroy reference range : <=37. The reference range was not used to interpr et this result as elton l/abnormal. [place] 200509-05-24 07:36:00 Test Item Value Reference Range Interpretation Comments Alk Phos (test code = Alk Phos) 110 39-136 [facility]2019-05-24 07:36:00 Test Item Value Reference Range Interpretation Comments ALT (test code = ALT) 20 See_Comment [Auto mated message] The system which ge nerated this result transmit kenroy reference range : <=65. The reference range was not used to interpr et this result as elton l/abnormal. [facility]2019-05-24 07:36:00 Test Item Value Reference Range Interpretation Comments Bili Total (test code = Bili Total) 0.3 0.2-1.3 [place] 200509-05-24 07:36:00 Test Item Value Reference Range Interpretation Comments Creatinine Lvl (test code = Creatinine 0.92 0.50-1.40 Lvl) [facility]2019-05-24 07:36:00 Test Item Value Reference Range Interpretation Comments Chloride Lvl (test code = Chloride Lvl) 100 95-109 [facility]2019-05-24 07:36:00 Test Item Value Reference Range Interpretation Comments CO2 (test code = CO2) 24 24-32 [facility]2019-05-24 07:36:00 Test Item Value Reference Range Interpretation Comments Sodium Lvl (test code = Sodium Lvl) 132 135-145 [facility]2019-05-24 07:36:00 Test Item Value Reference Range Interpretation Comments Potassium Lvl (test code = Potassium 3.8 3.5-5.1 Lvl) [facility]2019-05-24 07:36:00 Test Item Value Reference Range Interpretation Comments Calcium Lvl (test code = Calcium Lvl) 9.4 8.5-10.5 [facility]2019-05-24 07:36:00 Test Item Value Reference Range Interpretation Comments Total Protein (test code = Total 8.5 6.4-8.4 Protein) [facility]2019-05-24 07:36:00 Test Item Value Reference Range Interpretation Comments Albumin Lvl (test code = Albumin Lvl) 3.8 3.5-5.0 [facility]2019-05-24 07:36:00 Test Item Value Reference Range Interpretation Comments Glucose Lvl (test code = Glucose Lvl) 87 70-99 [facility]2019-05-24 07:36:00 Test Item Value Reference Range Interpretation Comments BUN (test code = BUN) 13 7-22 [facility]VgkribyYGFCRDUMAAGXF4273-31-28 07:36:00 Test Item Value Reference Range Interpretation Comments S Preg (test code = S Negative *NA*(08/12/18 Preg) 2:36 AM) [facility]2019-05-11 08:23:00 Test Item Value Reference Range Interpretation Comments Iron (test code = Iron) 17 30-160 [facility]2019-05-11 08:23:00 Test Item Value Reference Range Interpretation Comments TIBC (test code = TIBC) 479 228428 [facility]2019-05-11 08:23:00 Test Item Value Reference Range Interpretation Comments % Satur Fe (test code = % Satur Fe) 4 12-57 [facility]2019-05-11 08:23:00 Test Item Value Reference Range Interpretation Comments UIBC (test code = UIBC) 462 110-370 [facility]2019-05-11 08:23:00 Test Item Value Reference Range Interpretation Comments Ferritin Lvl (test code = Ferritin Lvl) 14 5-204 [facility]2019-05-11 08:23:00 Test Item Value Reference Range Interpretation Comments Vitamin B12 Lvl (test code = Vitamin [phone] B12 Lvl) [facility] CenterRadhaVALLEY HOSPITALIA [id number] 08:23:00 Test Item Value Reference Range Interpretation Comments Folate Lvl (test code = Folate Lvl) 7.4 [facility] CenteredwinCARDIAC [id number] 08:23:00 Test Item Value Reference Range Interpretation Comments Troponin-I (test code no gt See_Comment [Auto mated message] The = Troponin-I) system which g enerated this result transmit kenroy reference range : <=0.40. The reference r alee was not used to interpr et this result as elton l/abnormal. [facility] HospitalCHEM [id number] 08:23:00 Test Item Value Reference Range Interpretation Comments LDH (test code = LDH) 111 98-192 [facility] CenterFggmlozELZTBEQCUAUI3850-62-96 08:23:00 Test Item Value Reference Range Interpretation Comments CO2 (test code = CO2) 30 24-32 [facility] CenterCyuqxhmCDZUNHHQKNNX6751-87-04 08:23:00 Test Item Value Reference Range Interpretation Comments Total Protein (test code = Total 7.3 6.4-8.4 Protein) [facility] CenterGmclcogSHBMJZRONEFJ6305-95-00 08:23:00 Test Item Value Reference Range Interpretation Comments Alk Phos (test code = Alk Phos) 116 39-136 [facility]BfyqyuuEMRCJGFIRKBP4883-19-57 08:23:00 Test Item Value Reference Range Interpretation Comments B/C Ratio (test code = B/C Ratio) 18 1 6-25 [facility] CenterIbudhtfAZBJXOMBMSSP5510-18-54 08:23:00 Test Item Value Reference Range Interpretation Comments Calcium Lvl (test code = Calcium Lvl) 9.1 8.5-10.5 [facility] CenterAgznbylUIUWFRERHOZF7393-70-60 08:23:00 Test Item Value Reference Range Interpretation Comments AGAP (test code = AGAP) 10.8 10.0-20.0 [facility] HealthBtgmfqbWEDOMAMQGLAP5395-99-18 08:23:00 Test Item Value Reference Range Interpretation Comments AST (test code = AST) 8 See_Comment [Auto mated message] The system which ge nerated this result transmit kenroy reference range : <=37. The reference range was not used to interpr et this result as elton l/abnormal. [facility] CenterImuizdiFKDIHFPGCVET8899-08-34 08:23:00 Test Item Value Reference Range Interpretation Comments ALT (test code = ALT) 14 See_Comment [Auto mated message] The system which ge nerated this result transmit kenroy reference range : <=65. The reference range was not used to interpr et this result as elton l/abnormal. [facility] HealthZusywkkGTRLDPLHFIXY8341-30-73 08:23:00 Test Item Value Reference Range Interpretation Comments A/G Ratio (test code = A/G Ratio) 0.7 1 0.7-1.6 [facility] HealthOlkrmkkDJRTLDOEPMYZ2917-89-42 08:23:00 Test Item Value Reference Range Interpretation Comments Globulin (test code = Globulin) 4.3 2.7-4.2 [facility] HealthHkrsmbrRHNYMHOMMNCG5686-89-09 08:23:00 Test Item Value Reference Range Interpretation Comments Glucose Lvl (test code = Glucose Lvl) 110 70-99 [facility] HealthBuldkqpAUSMQAGQCISY1112-20-60 08:23:00 Test Item Value Reference Range Interpretation Comments Chloride Lvl (test code = Chloride Lvl) 99 95-109 [facility] HealthJjzarsgBWUOXCDKGCLJ5015-78-05 08:23:00 Test Item Value Reference Range Interpretation Comments Potassium Lvl (test code = Potassium 3.8 3.5-5.1 Lvl) [facility] HealthGdbdfdhLURGCMKLXSLC5425-63-80 08:23:00 Test Item Value Reference Range Interpretation Comments Sodium Lvl (test code = Sodium Lvl) 136 135-145 [facility] HealthSyualjbVYZECLNYCVGN7367-21-70 08:23:00 Test Item Value Reference Range Interpretation Comments Creatinine Lvl (test code = Creatinine 0.79 0.50-1.40 Lvl) [facility] HealthHhaadnnZWEWGZECDVMQ4029-98-18 08:23:00 Test Item Value Reference Range Interpretation Comments BUN (test code = BUN) 14 7-22 [facility] HealthPedpzeePLWRBEBEMVJT0971-84-90 08:23:00 Test Item Value Reference Range Interpretation Comments eGFR (test code = eGFR) 95 [facility]JvlahcaQGZWAQTGNWCQ5837-16-82 08:23:00 Test Item Value Reference Range Interpretation Comments Bili Total (test code = Bili Total) 0.3 0.2-1.3 [facility] HealthGvvqemmKLHSJHUUONFA0563-70-88 08:23:00 Test Item Value Reference Range Interpretation Comments Albumin Lvl (test code = Albumin Lvl) 3.0 3.5-5.0 [facility]UyvjdcaADLARVTUIC1347-87-83 08:23:00 Test Item Value Reference Range Interpretation Comments MCHC (test code = MCHC) 31.4 32.0-36.0 [facility] CenterZfilfmdCYBWWQWWUK3244-28-40 08:23:00 Test Item Value Reference Range Interpretation Comments MCH (test code = MCH) 22.3 pg 27.0-31.0 [facility] CenterUvhcnxsSFONRUNZPM5497-83-47 08:23:00 Test Item Value Reference Range Interpretation Comments MCV (test code = MCV) 71.1 80.0-98.0 [facility] CenterKxrgsevGHPVZZJTFW0529-73-41 08:23:00 Test Item Value Reference Range Interpretation Comments Hct (test code = Hct) 30.0 36.0-48.0 [facility] CenterYeefklmHXMKOSPSUB2770-06-98 08:23:00 Test Item Value Reference Range Interpretation Comments Hgb (test code = Hgb) 9.4 12.0-16.0 [facility] CenterCvcwswtLWCHDARVBZ5023-27-16 08:23:00 Test Item Value Reference Range Interpretation Comments Platelet (test code = Platelet) 309 133-450 [facility] CenterUvzjdrgHZKZTDDILE9884-37-64 08:23:00 Test Item Value Reference Range Interpretation Comments RDW (test code = RDW) 17.4 11.5-14.5 [facility] CenterSaxlyajJURMVTLMBU4249-57-31 08:23:00 Test Item Value Reference Range Interpretation Comments MPV (test code = MPV) 7.8 7.4-10.4 [facility] CenterDbxsvwiHIDICFPSIL5779-37-60 08:23:00 Test Item Value Reference Range Interpretation Comments RBC (test code = RBC) 4.22 4.20-5.40 [facility] CenterYyaiaqcKFYXQACHTM7783-19-19 08:23:00 Test Item Value Reference Range Interpretation Comments WBC (test code = WBC) 9.6 3.7-10.4 [facility] CenterDajpltoYLBZRRHIES9801-41-20 08:23:00 Test Item Value Reference Range Interpretation Comments Eosinophils # (test code 0.1 See_Comment [A utomated message] The = Eosinophils #) system whic h generated this result tra nsmitted reference range : <=0.5. The reference r alee was not used to int erpret this result as normal/abnormal . [facility] CenterQvuyzreDKWUMBWPLF2611-67-19 08:23:00 Test Item Value Reference Range Interpretation Comments Monocytes # (test code 0.7 See_Comment [Aut omated message] The = Monocytes #) system which generated this result tra nsmitted reference range : <=0.8. The reference r alee was not used to int erpret this result as normal/abnormal . [facility] CenterQmzmsdwMIJWKSMESY5465-83-19 08:23:00 Test Item Value Reference Range Interpretation Comments Lymphocytes # (test code = Lymphocytes 1.8 1.0-5.5 #) [facility] CenterDbannsyFXCQXIPLWO3135-19-24 08:23:00 Test Item Value Reference Range Interpretation Comments Neutrophils # (test code = Neutrophils 6.8 1.5-8.1 #) [facility] CenterPzrownkALFMNFEVIV0209-31-78 08:23:00 Test Item Value Reference Range Interpretation Comments Basophils # (test code 0.1 See_Comment [Aut omated message] The = Basophils #) system which generated this result tra nsmitted reference range : <=0.2. The reference r alee was not used to int erpret this result as normal/abnormal . [facility] CenterRkzwpbsKOOJZZHCXZ3097-53-90 08:23:00 Test Item Value Reference Range Interpretation Comments Microcyte (test code = 2+ *ABN*(07/30/18 Microcyte) 3:23 AM) [facility] CenterTwmixtxKVDOUTMENI5583-68-89 08:23:00 Test Item Value Reference Range Interpretation Comments Monocytes (test code = Monocytes) 7.3 2.0-12.0 [facility] CenterFqnyzooSIRTZERWKS6471-95-95 08:23:00 Test Item Value Reference Range Interpretation Comments Lymphocytes (test code = Lymphocytes) 18.8 20.0-40.0 [facility] CenterOhpubnnCALVPEOVRN2266-75-80 08:23:00 Test Item Value Reference Range Interpretation Comments Segs (test code = Segs) 71.8 45.0-75.0 [facility] CenterElacknwVXEGJFVAIK2754-02-20 08:23:00 Test Item Value Reference Range Interpretation Comments Basophils (test code = 0.8 See_Comment [Aut omated message] The Basophils) system which ge nerated this result tra nsmitted reference range : <=1.0. The reference r alee was not used to int erpret this result as normal/abnormal . [facility] CenterFkevqewBOBBTYQGWI6090-84-62 08:23:00 Test Item Value Reference Range Interpretation Comments Eosinophils (test code = 1.3 See_Comment [A utomated message] The Eosinophils) system which ge nerated this result tra nsmitted reference range : <=4.0. The reference r alee was not used to int erpret this result as normal/abnormal . [facility] CenterPeltecyWLTISWGMDP8901-25-63 08:23:00 Test Item Value Reference Range Interpretation Comments Retic Auto (test code = Retic Auto) 1.7 0.5-1.5 [facility]ItssntmQKXRHF4383-47-96 08:23:00 Test Item Value Reference Range Interpretation Comments VLDL (test code = VLDL) 10 1 [facility]EmjwbnuWRVBEE5997-41-66 08:23:00 Test Item Value Reference Range Interpretation Comments CHD Risk (test code = CHD Risk) 3.94 1 3.90-5.80 [facility] SoutheastSyjspkpJAUXSE8604-84-95 08:23:00 Test Item Value Reference Range Interpretation Comments HDL (test code = HDL) 50 [facility]YgiwtfdWKZQUN7409-15-74 08:23:00 Test Item Value Reference Range Interpretation Comments Trig (test code = Trig) 50 [facility] SoutheastZrwpgeyZJPBSP7174-27-38 08:23:00 Test Item Value Reference Range Interpretation Comments Chol (test code = Chol) 197 [facility] SoutheastImucfmcFJDFTS6654-46-39 08:23:00 Test Item Value Reference Range Interpretation Comments LDL (Calculated) (test code = LDL 137 (Calculated)) [facility] FQAEWOUFC3871-34-75 08:23:00 Test Item Value Reference Range Interpretation Comments Hgb A1C (test code = Hgb A1C) 6.0 [facility]2019-05-11 08:23:00 Test Item Value Reference Range Interpretation Comments Iron (test code = Iron) 17 30-160 [facility]2019-05-11 08:23:00 Test Item Value Reference Range Interpretation Comments TIBC (test code = TIBC) 976 462-767 [facility]2019-05-11 08:23:00 Test Item Value Reference Range Interpretation Comments % Satur Fe (test code = % Satur Fe) 4 12-57 [facility]2019-05-11 08:23:00 Test Item Value Reference Range Interpretation Comments UIBC (test code = UIBC) 462 110-370 [facility] ENDFF9419-23-05 08:23:00 Test Item Value Reference Range Interpretation Comments Ferritin Lvl (test code = Ferritin Lvl) 14 5-204 [facility]2019-05-11 08:23:00 Test Item Value Reference Range Interpretation Comments Vitamin B12 Lvl (test code = Vitamin [phone] B12 Lvl) [facility] HGGOJ5608-81-57 08:23:00 Test Item Value Reference Range Interpretation Comments Folate Lvl (test code = Folate Lvl) 7.4 [facility] QNSTYXB2671-18-00 08:23:00 Test Item Value Reference Range Interpretation Comments Troponin-I (test code no gt See_Comment [Auto mated message] The = Troponin-I) system which g enerated this result transmit kenroy reference range : <=0.40. The reference r alee was not used to interpr et this result as elton l/abnormal. [facility]CHE[facility] ANBWS0228-88-16 08:23:00 Test Item Value Reference Range Interpretation Comments LDH (test code = LDH) 111 98-192 [facility] HealthLlslwerLHHHJTZZFYOI1600-38-34 08:23:00 Test Item Value Reference Range Interpretation Comments CO2 (test code = CO2) 30 24-32 [facility] HealthPjydltgYBRPIRYUHZNU9494-36-32 08:23:00 Test Item Value Reference Range Interpretation Comments Total Protein (test code = Total 7.3 6.4-8.4 Protein) [facility] HealthGhrfhbsMEKMWWKMNRTM7016-39-38 08:23:00 Test Item Value Reference Range Interpretation Comments Alk Phos (test code = Alk Phos) 116 39-136 [facility] HealthVlczjvjESWKBDLSAZEQ9274-95-23 08:23:00 Test Item Value Reference Range Interpretation Comments B/C Ratio (test code = B/C Ratio) 18 1 6-25 [facility] HealthHcgzsixABLWKZXTZORK3293-12-62 08:23:00 Test Item Value Reference Range Interpretation Comments Calcium Lvl (test code = Calcium Lvl) 9.1 8.5-10.5 [facility] HealthOrjjwlmPYZREIDIDYTE3824-67-39 08:23:00 Test Item Value Reference Range Interpretation Comments AGAP (test code = AGAP) 10.8 10.0-20.0 [facility] HealthZqrtutfTCOFMCISABOA5577-50-23 08:23:00 Test Item Value Reference Range Interpretation Comments AST (test code = AST) 8 See_Comment [Auto mated message] The system which ge nerated this result transmit kenroy reference range : <=37. The reference range was not used to interpr et this result as elton l/abnormal. [facility] HealthGtvtyfrVCAUQHASVMGI0448-74-94 08:23:00 Test Item Value Reference Range Interpretation Comments ALT (test code = ALT) 14 See_Comment [Auto mated message] The system which ge nerated this result transmit kenroy reference range : <=65. The reference range was not used to interpr et this result as elton l/abnormal. [facility] HealthBdgctfqXUQBEZTYIWDY2293-65-43 08:23:00 Test Item Value Reference Range Interpretation Comments A/G Ratio (test code = A/G Ratio) 0.7 1 0.7-1.6 [facility] HealthKjsbiubYDRXSUYSAWNZ4455-24-54 08:23:00 Test Item Value Reference Range Interpretation Comments Globulin (test code = Globulin) 4.3 2.7-4.2 [facility] HealthZlqcbwoXJGFGUALQPRY2329-37-39 08:23:00 Test Item Value Reference Range Interpretation Comments Glucose Lvl (test code = Glucose Lvl) 110 70-99 [facility] HealthIjxmetxTRENMADMNINC6629-89-30 08:23:00 Test Item Value Reference Range Interpretation Comments Chloride Lvl (test code = Chloride Lvl) 99 95-109 [facility] HealthCtykvdjVKIVCWRAQPMI8134-47-61 08:23:00 Test Item Value Reference Range Interpretation Comments Potassium Lvl (test code = Potassium 3.8 3.5-5.1 Lvl) [facility] HealthQcbgsvtCEMFOAHAFLBQ6643-32-16 08:23:00 Test Item Value Reference Range Interpretation Comments Sodium Lvl (test code = Sodium Lvl) 136 135-145 [facility] HealthMlvabtxJVXYKJFNAATQ8784-49-43 08:23:00 Test Item Value Reference Range Interpretation Comments Creatinine Lvl (test code = Creatinine 0.79 0.50-1.40 Lvl) [facility] HealthZqptghjQHLSNDNJKYIO8771-46-24 08:23:00 Test Item Value Reference Range Interpretation Comments BUN (test code = BUN) 14 7-22 [facility] HealthAehhveaODKSFSAJGOWL4888-45-43 08:23:00 Test Item Value Reference Range Interpretation Comments eGFR (test code = eGFR) 95 [facility] HealthTrileatFBISEYQNBCWX6852-17-92 08:23:00 Test Item Value Reference Range Interpretation Comments Bili Total (test code = Bili Total) 0.3 0.2-1.3 [facility] HealthWxxpmvyQZPPIARQJEXF3483-06-40 08:23:00 Test Item Value Reference Range Interpretation Comments Albumin Lvl (test code = Albumin Lvl) 3.0 3.5-5.0 [facility] CenterCqymyltLKGILUGJLM3809-00-80 08:23:00 Test Item Value Reference Range Interpretation Comments MCHC (test code = MCHC) 31.4 32.0-36.0 [facility] CenterRuwdndoNZMEQADDMH1891-31-06 08:23:00 Test Item Value Reference Range Interpretation Comments MCH (test code = MCH) 22.3 pg 27.0-31.0 [facility] CenterWqyugzhFVHYAVUYWX2046-66-49 08:23:00 Test Item Value Reference Range Interpretation Comments MCV (test code = MCV) 71.1 80.0-98.0 [facility] CenterCtqsmuzSCQQVHVATT3273-81-37 08:23:00 Test Item Value Reference Range Interpretation Comments Hct (test code = Hct) 30.0 36.0-48.0 [facility] CenterDxmiddnSJAAXUBVXM0867-65-59 08:23:00 Test Item Value Reference Range Interpretation Comments Hgb (test code = Hgb) 9.4 12.0-16.0 [facility] CenterCngdhzpDYBASFLXVR7026-73-19 08:23:00 Test Item Value Reference Range Interpretation Comments Platelet (test code = Platelet) 309 133-450 [facility] CenterLhwsyhlHWRIZJPKXK8501-51-29 08:23:00 Test Item Value Reference Range Interpretation Comments RDW (test code = RDW) 17.4 11.5-14.5 [facility] CenterIkawedfKADJRAKEOY3693-22-89 08:23:00 Test Item Value Reference Range Interpretation Comments MPV (test code = MPV) 7.8 7.4-10.4 [facility] CenterEravhmiYDNFUXVMMO5065-51-41 08:23:00 Test Item Value Reference Range Interpretation Comments RBC (test code = RBC) 4.22 4.20-5.40 [facility] CenterZrfdydfZJSCSMUEVT0317-31-95 08:23:00 Test Item Value Reference Range Interpretation Comments WBC (test code = WBC) 9.6 3.7-10.4 [facility] CenterBugeodmFPHTNYCFCA0529-39-26 08:23:00 Test Item Value Reference Range Interpretation Comments Eosinophils # (test code 0.1 See_Comment [A utomated message] The = Eosinophils #) system whic h generated this result tra nsmitted reference range : <=0.5. The reference r alee was not used to int erpret this result as normal/abnormal . [facility] CenterAuhsoclACTQSVYHZE8738-09-82 08:23:00 Test Item Value Reference Range Interpretation Comments Monocytes # (test code 0.7 See_Comment [Aut omated message] The = Monocytes #) system which generated this result tra nsmitted reference range : <=0.8. The reference r alee was not used to int erpret this result as normal/abnormal . [facility] CenterKvxweylQIAQIQPRBU7130-60-71 08:23:00 Test Item Value Reference Range Interpretation Comments Lymphocytes # (test code = Lymphocytes 1.8 1.0-5.5 #) [facility] CenterQsoqwvfCTZXJHYRWZ8626-90-03 08:23:00 Test Item Value Reference Range Interpretation Comments Neutrophils # (test code = Neutrophils 6.8 1.5-8.1 #) [facility] CenterSvqasoaVSWZXIUEDT5067-22-76 08:23:00 Test Item Value Reference Range Interpretation Comments Basophils # (test code 0.1 See_Comment [Aut omated message] The = Basophils #) system which generated this result tra nsmitted reference range : <=0.2. The reference r alee was not used to int erpret this result as normal/abnormal . [facility] CenterKjiwgoqNZXKZIPEOE6113-98-12 08:23:00 Test Item Value Reference Range Interpretation Comments Microcyte (test code = 2+ *ABN*(07/30/18 Microcyte) 3:23 AM) [facility] CenterXjqpdieICZCZZMHIQ4672-20-84 08:23:00 Test Item Value Reference Range Interpretation Comments Monocytes (test code = Monocytes) 7.3 2.0-12.0 [facility] CenterZlmvgesXQFVZTCMIA9100-88-37 08:23:00 Test Item Value Reference Range Interpretation Comments Lymphocytes (test code = Lymphocytes) 18.8 20.0-40.0 [facility] CenterUkcxvxxHEAOCPNMPS1764-19-71 08:23:00 Test Item Value Reference Range Interpretation Comments Segs (test code = Segs) 71.8 45.0-75.0 [facility] CenterWxgqgtkPNKSNRJPQQ1376-06-64 08:23:00 Test Item Value Reference Range Interpretation Comments Basophils (test code = 0.8 See_Comment [Aut omated message] The Basophils) system which ge nerated this result tra nsmitted reference range : <=1.0. The reference r alee was not used to int erpret this result as normal/abnormal . [facility] CenterUumdmiiTNSQFAOOHH0537-84-52 08:23:00 Test Item Value Reference Range Interpretation Comments Eosinophils (test code = 1.3 See_Comment [A utomated message] The Eosinophils) system which ge nerated this result tra nsmitted reference range : <=4.0. The reference r alee was not used to int erpret this result as normal/abnormal . [facility] CenterYypfkkdCNIMCQOGRE9699-10-12 08:23:00 Test Item Value Reference Range Interpretation Comments Retic Auto (test code = Retic Auto) 1.7 0.5-1.5 [facility] HospitalEcphqnoCUBLKB2410-26-80 08:23:00 Test Item Value Reference Range Interpretation Comments VLDL (test code = VLDL) 10 1 [facility] HospitalAmfnqzcSMQAGT5925-21-78 08:23:00 Test Item Value Reference Range Interpretation Comments CHD Risk (test code = CHD Risk) 3.94 1 3.90-5.80 [facility]BveeeqnSLFREL8825-22-49 08:23:00 Test Item Value Reference Range Interpretation Comments HDL (test code = HDL) 50 [facility] HospitalCcbpvhyKJTIJL3445-23-31 08:23:00 Test Item Value Reference Range Interpretation Comments Trig (test code = Trig) 50 [facility] HospitalDdknyakDRYVAH4096-80-50 08:23:00 Test Item Value Reference Range Interpretation Comments Chol (test code = Chol) 197 [facility] HospitalNztwzyyZQRIPN6643-54-91 08:23:00 Test Item Value Reference Range Interpretation Comments LDL (Calculated) (test code = LDL 137 (Calculated)) [facility] LWWBMHHFZ5944-67-23 08:23:00 Test Item Value Reference Range Interpretation Comments Hgb A1C (test code = Hgb A1C) 6.0 [facility] XMDCZ5655-77-55 08:23:00 Test Item Value Reference Range Interpretation Comments Iron (test code = Iron) 17 30-160 [facility]2019-05-11 08:23:00 Test Item Value Reference Range Interpretation Comments TIBC (test code = TIBC) 479 228428 [facility]2019-05-11 08:23:00 Test Item Value Reference Range Interpretation Comments % Satur Fe (test code = % Satur Fe) 4 12-57 [facility]2019-05-11 08:23:00 Test Item Value Reference Range Interpretation Comments UIBC (test code = UIBC) 462 110-370 [facility]2019-05-11 08:23:00 Test Item Value Reference Range Interpretation Comments Ferritin Lvl (test code = Ferritin Lvl) 14 5-204 [facility]2019-05-11 08:23:00 Test Item Value Reference Range Interpretation Comments Vitamin B12 Lvl (test code = Vitamin [phone] B12 Lvl) [facility]2019-05-11 08:23:00 Test Item Value Reference Range Interpretation Comments Folate Lvl (test code = Folate Lvl) 7.4 [facility]CARD[facility] GPRSHJK5776-39-77 08:23:00 Test Item Value Reference Range Interpretation Comments Troponin-I (test code no gt See_Comment [Auto mated message] The = Troponin-I) system which g enerated this result transmit kenroy reference range : <=0.40. The reference r alee was not used to interpr et this result as elton l/abnormal. [facility]CHEM IBWVY7986-67-26 08:23:00 Test Item Value Reference Range Interpretation Comments LDH (test code = LDH) 111 98-192 [facility] HealthBrcqxgaEJHOXEMWHPVN4352-64-42 08:23:00 Test Item Value Reference Range Interpretation Comments CO2 (test code = CO2) 30 24-32 [facility] HealthBqnvzriHNBQERFATGGP3322-03-48 08:23:00 Test Item Value Reference Range Interpretation Comments Total Protein (test code = Total 7.3 6.4-8.4 Protein) [facility] HealthHzfltvoUPAZDDBFTMQA9976-89-54 08:23:00 Test Item Value Reference Range Interpretation Comments Alk Phos (test code = Alk Phos) 116 39-136 [facility] HealthFvkpyuzWDDISFZURGMV6998-61-00 08:23:00 Test Item Value Reference Range Interpretation Comments B/C Ratio (test code = B/C Ratio) 18 1 6-25 [facility] HealthCoiphxvPQNUBMWEOOUD6648-97-46 08:23:00 Test Item Value Reference Range Interpretation Comments Calcium Lvl (test code = Calcium Lvl) 9.1 8.5-10.5 [facility] HealthHfmkgmcYTVPGITPYOIN3002-13-74 08:23:00 Test Item Value Reference Range Interpretation Comments AGAP (test code = AGAP) 10.8 10.0-20.0 [facility] HealthAthiswjTXTGBSYLYEME0573-60-59 08:23:00 Test Item Value Reference Range Interpretation Comments AST (test code = AST) 8 See_Comment [Auto mated message] The system which ge nerated this result transmit kenroy reference range : <=37. The reference range was not used to interpr et this result as elton l/abnormal. [facility] HealthJrpsgvcHMFUUSIKNMYF8180-84-86 08:23:00 Test Item Value Reference Range Interpretation Comments ALT (test code = ALT) 14 See_Comment [Auto mated message] The system which ge nerated this result transmit kenroy reference range : <=65. The reference range was not used to interpr et this result as elton l/abnormal. [facility] HealthItycpteGPOJXWOBYJKZ5558-34-25 08:23:00 Test Item Value Reference Range Interpretation Comments A/G Ratio (test code = A/G Ratio) 0.7 1 0.7-1.6 [facility] HealthJtsopjnMKSIKSPEVEIE4730-25-35 08:23:00 Test Item Value Reference Range Interpretation Comments Globulin (test code = Globulin) 4.3 2.7-4.2 [facility] HealthMevirnpNKOPBZICKHIX8948-69-22 08:23:00 Test Item Value Reference Range Interpretation Comments Glucose Lvl (test code = Glucose Lvl) 110 70-99 [facility] HealthXlobudzTWJMHLXRNJTC7097-11-62 08:23:00 Test Item Value Reference Range Interpretation Comments Chloride Lvl (test code = Chloride Lvl) 99 95-109 [facility] HealthQsksmrhBZXEGGZYEUZN6139-26-15 08:23:00 Test Item Value Reference Range Interpretation Comments Potassium Lvl (test code = Potassium 3.8 3.5-5.1 Lvl) [facility] HealthYrxtffwKEULAJNFXAAU5447-53-40 08:23:00 Test Item Value Reference Range Interpretation Comments Sodium Lvl (test code = Sodium Lvl) 136 135-145 [facility] HealthEscifgpWLUWSLXYKXRP4330-60-20 08:23:00 Test Item Value Reference Range Interpretation Comments Creatinine Lvl (test code = Creatinine 0.79 0.50-1.40 Lvl) [facility] HealthXqdkdrvQNNCHXTJLHMC5484-98-03 08:23:00 Test Item Value Reference Range Interpretation Comments BUN (test code = BUN) 14 7-22 [facility] HealthOzusecgPFBEZJDRIIFP4441-53-50 08:23:00 Test Item Value Reference Range Interpretation Comments eGFR (test code = eGFR) 95 [facility] HealthUqcfhzvHLIKNGZKNUCI5418-80-69 08:23:00 Test Item Value Reference Range Interpretation Comments Bili Total (test code = Bili Total) 0.3 0.2-1.3 [facility] HealthSpdnbnzLHVFZEKMHPLA7014-97-28 08:23:00 Test Item Value Reference Range Interpretation Comments Albumin Lvl (test code = Albumin Lvl) 3.0 3.5-5.0 [facility] CenterTpvgazjFBYLUNHWJL6556-48-45 08:23:00 Test Item Value Reference Range Interpretation Comments MCHC (test code = MCHC) 31.4 32.0-36.0 [facility] CenterPgmgtwpWECXFIVKKS8752-63-25 08:23:00 Test Item Value Reference Range Interpretation Comments MCH (test code = MCH) 22.3 pg 27.0-31.0 [facility] CenterGbgoutuHRWLDUBHTG0138-35-53 08:23:00 Test Item Value Reference Range Interpretation Comments MCV (test code = MCV) 71.1 80.0-98.0 [facility] CenterGindigoCEOEKSQCGN4908-70-75 08:23:00 Test Item Value Reference Range Interpretation Comments Hct (test code = Hct) 30.0 36.0-48.0 [facility] CenterKeubzqhVKUYNNEKMQ4229-62-59 08:23:00 Test Item Value Reference Range Interpretation Comments Hgb (test code = Hgb) 9.4 12.0-16.0 [facility] CenterHeqcummQIEBTKDFQD7652-37-37 08:23:00 Test Item Value Reference Range Interpretation Comments Platelet (test code = Platelet) 309 133-450 [facility] CenterPpwahhbZTYFBGTDJA5102-29-45 08:23:00 Test Item Value Reference Range Interpretation Comments RDW (test code = RDW) 17.4 11.5-14.5 [facility] CenterXdhcgeyWZUGLNWRQJ2398-08-80 08:23:00 Test Item Value Reference Range Interpretation Comments MPV (test code = MPV) 7.8 7.4-10.4 [facility] CenterLaonesrTXWKSNPDFU4289-69-80 08:23:00 Test Item Value Reference Range Interpretation Comments RBC (test code = RBC) 4.22 4.20-5.40 [facility] CenterQkkjbcdFTQDSBLSJW8946-75-07 08:23:00 Test Item Value Reference Range Interpretation Comments WBC (test code = WBC) 9.6 3.7-10.4 [facility] CenterAaorrxxHHFYUIOYPK6339-11-01 08:23:00 Test Item Value Reference Range Interpretation Comments Eosinophils # (test code 0.1 See_Comment [A utomated message] The = Eosinophils #) system whic h generated this result tra nsmitted reference range : <=0.5. The reference r alee was not used to int erpret this result as normal/abnormal . [facility] CenterIjelwzsHDYKOHCVMP6113-50-81 08:23:00 Test Item Value Reference Range Interpretation Comments Monocytes # (test code 0.7 See_Comment [Aut omated message] The = Monocytes #) system which generated this result tra nsmitted reference range : <=0.8. The reference r alee was not used to int erpret this result as normal/abnormal . [facility]LqfhcihWBFZHIASES4239-87-06 08:23:00 Test Item Value Reference Range Interpretation Comments Lymphocytes # (test code = Lymphocytes 1.8 1.0-5.5 #) [facility] CenterAryeglrTGNPNMCMJI8888-04-69 08:23:00 Test Item Value Reference Range Interpretation Comments Neutrophils # (test code = Neutrophils 6.8 1.5-8.1 #) [facility] CenterRnhfrwqZJXWBOXYAN0645-43-13 08:23:00 Test Item Value Reference Range Interpretation Comments Basophils # (test code 0.1 See_Comment [Aut omated message] The = Basophils #) system which generated this result tra nsmitted reference range : <=0.2. The reference r alee was not used to int erpret this result as normal/abnormal . [facility] CenterSfufhtgFJYTQFLQOC1745-48-90 08:23:00 Test Item Value Reference Range Interpretation Comments Microcyte (test code = 2+ *ABN*(07/30/18 Microcyte) 3:23 AM) [facility] CenterAngkahnAMHTUDRCNC3558-56-75 08:23:00 Test Item Value Reference Range Interpretation Comments Monocytes (test code = Monocytes) 7.3 2.0-12.0 [facility] CenterXkteivyAYJQNCYSTY6068-60-23 08:23:00 Test Item Value Reference Range Interpretation Comments Lymphocytes (test code = Lymphocytes) 18.8 20.0-40.0 [facility] CenterXxahcnkNBAKCBLXON4554-55-74 08:23:00 Test Item Value Reference Range Interpretation Comments Segs (test code = Segs) 71.8 45.0-75.0 [facility] CenterKlzevegQDCYIERMCE7230-06-30 08:23:00 Test Item Value Reference Range Interpretation Comments Basophils (test code = 0.8 See_Comment [Aut omated message] The Basophils) system which ge nerated this result tra nsmitted reference range : <=1.0. The reference r alee was not used to int erpret this result as normal/abnormal . [facility] CenterQfdtydkYGRQEEMRDA0630-48-15 08:23:00 Test Item Value Reference Range Interpretation Comments Eosinophils (test code = 1.3 See_Comment [A utomated message] The Eosinophils) system which ge nerated this result tra nsmitted reference range : <=4.0. The reference r alee was not used to int erpret this result as normal/abnormal . [facility] CenterCouqrosUBUGVBLGAP4794-70-20 08:23:00 Test Item Value Reference Range Interpretation Comments Retic Auto (test code = Retic Auto) 1.7 0.5-1.5 [facility]HoimwevKNOGIO6167-76-24 08:23:00 Test Item Value Reference Range Interpretation Comments VLDL (test code = VLDL) 10 1 [facility] SoutheastVbdfgadPPPFHJ0137-34-56 08:23:00 Test Item Value Reference Range Interpretation Comments CHD Risk (test code = CHD Risk) 3.94 1 3.90-5.80 [facility] SoutheastTghbatoUNKKBB7774-65-35 08:23:00 Test Item Value Reference Range Interpretation Comments HDL (test code = HDL) 50 [facility] SoutheastZgzxakaWEXDOB9272-56-67 08:23:00 Test Item Value Reference Range Interpretation Comments Trig (test code = Trig) 50 [facility] SoutheastIefjgqzISTDDW8977-16-23 08:23:00 Test Item Value Reference Range Interpretation Comments Chol (test code = Chol) 197 [facility] SoutheastChbzkasTUYAXW7805-09-02 08:23:00 Test Item Value Reference Range Interpretation Comments LDL (Calculated) (test code = LDL 137 (Calculated)) [facility] ZCWDMKXSI0755-70-29 08:23:00 Test Item Value Reference Range Interpretation Comments Hgb A1C (test code = Hgb A1C) 6.0 [facility]2019-05-11 08:23:00 Test Item Value Reference Range Interpretation Comments Iron (test code = Iron) 17 30-160 [facility]2019-05-11 08:23:00 Test Item Value Reference Range Interpretation Comments TIBC (test code = TIBC) 479 228-428 [facility]2019-05-11 08:23:00 Test Item Value Reference Range Interpretation Comments % Satur Fe (test code = % Satur Fe) 4 12-57 [facility]2019-05-11 08:23:00 Test Item Value Reference Range Interpretation Comments UIBC (test code = UIBC) 462 110-370 [facility]2019-05-11 08:23:00 Test Item Value Reference Range Interpretation Comments Ferritin Lvl (test code = Ferritin Lvl) 14 5-204 [facility]2019-05-11 08:23:00 Test Item Value Reference Range Interpretation Comments Vitamin B12 Lvl (test code = Vitamin 000 136-5554 B12 Lvl) [facility]2019-05-11 08:23:00 Test Item Value Reference Range Interpretation Comments Folate Lvl (test code = Folate Lvl) 7.4 [facility] JQPUFTL2898-31-61 08:23:00 Test Item Value Reference Range Interpretation Comments Troponin-I (test code no gt See_Comment [Auto mated message] The = Troponin-I) system which g enerated this result transmit kenroy reference range : <=0.40. The reference r alee was not used to interpr et this result as elton l/abnormal. [facility] HospitalCHEM VSWPY7938-24-79 08:23:00 Test Item Value Reference Range Interpretation Comments LDH (test code = LDH) 111 98-192 [facility]HbydcnjQUMBPWPXVMVD3647-59-37 08:23:00 Test Item Value Reference Range Interpretation Comments CO2 (test code = CO2) 30 24-32 [facility] HealthBgowpqkREBIPZZPYGLY9885-23-56 08:23:00 Test Item Value Reference Range Interpretation Comments Total Protein (test code = Total 7.3 6.4-8.4 Protein) [facility] HealthSvibnhsNNRFKLRTGKSF9290-69-34 08:23:00 Test Item Value Reference Range Interpretation Comments Alk Phos (test code = Alk Phos) 116 39-136 [facility] HealthWugezmcVWPIRWXITKTF5187-79-25 08:23:00 Test Item Value Reference Range Interpretation Comments B/C Ratio (test code = B/C Ratio) 18 1 6-25 [facility] HealthXgmtfunGULAXKCZJEZV3835-38-92 08:23:00 Test Item Value Reference Range Interpretation Comments Calcium Lvl (test code = Calcium Lvl) 9.1 8.5-10.5 [facility] HealthIwncdjhKKZYVMWAWEKS0810-93-08 08:23:00 Test Item Value Reference Range Interpretation Comments AGAP (test code = AGAP) 10.8 10.0-20.0 [facility] HealthVvpntlsGDBQXZGLVNQW3656-58-57 08:23:00 Test Item Value Reference Range Interpretation Comments AST (test code = AST) 8 See_Comment [Auto mated message] The system which ge nerated this result transmit kenroy reference range : <=37. The reference range was not used to interpr et this result as elton l/abnormal. [facility] HealthPkfqvfzGLHEMCQATXXP5404-60-31 08:23:00 Test Item Value Reference Range Interpretation Comments ALT (test code = ALT) 14 See_Comment [Auto mated message] The system which ge nerated this result transmit kenroy reference range : <=65. The reference range was not used to interpr et this result as elton l/abnormal. [facility] HealthLvuivguHHDTHMFTRYZO2256-94-84 08:23:00 Test Item Value Reference Range Interpretation Comments A/G Ratio (test code = A/G Ratio) 0.7 1 0.7-1.6 [facility] HealthOyuhmtxNVDXDJNNCLCE0235-35-59 08:23:00 Test Item Value Reference Range Interpretation Comments Globulin (test code = Globulin) 4.3 2.7-4.2 [facility] HealthZfycapmOMFCAMLCSOXM5280-44-40 08:23:00 Test Item Value Reference Range Interpretation Comments Glucose Lvl (test code = Glucose Lvl) 110 70-99 [facility] HealthMvcdaltONOKWSXMYRHF7868-42-60 08:23:00 Test Item Value Reference Range Interpretation Comments Chloride Lvl (test code = Chloride Lvl) 99 95-109 [facility] HealthZffwstfQIDXSRNLACXE7824-12-55 08:23:00 Test Item Value Reference Range Interpretation Comments Potassium Lvl (test code = Potassium 3.8 3.5-5.1 Lvl) [facility] HealthUldtrhwNSWAMLVRVOTN1014-89-54 08:23:00 Test Item Value Reference Range Interpretation Comments Sodium Lvl (test code = Sodium Lvl) 136 135-145 [facility] HealthXjezcymXIIUBIIKVWAB4384-91-82 08:23:00 Test Item Value Reference Range Interpretation Comments Creatinine Lvl (test code = Creatinine 0.79 0.50-1.40 Lvl) [facility] HealthNzdijvjMLBTSIUVQEVQ5518-36-45 08:23:00 Test Item Value Reference Range Interpretation Comments BUN (test code = BUN) 14 7-22 [facility] HealthBmedvfgKEDZAMKCMAUS5721-62-53 08:23:00 Test Item Value Reference Range Interpretation Comments eGFR (test code = eGFR) 95 [facility] HealthAbfuuuiGXBVKEUJFTZO6738-82-76 08:23:00 Test Item Value Reference Range Interpretation Comments Bili Total (test code = Bili Total) 0.3 0.2-1.3 [facility] HealthWrrcovrRAQZJFQWOJXP8672-40-58 08:23:00 Test Item Value Reference Range Interpretation Comments Albumin Lvl (test code = Albumin Lvl) 3.0 3.5-5.0 [facility] CenterNxjwqpxZFEVVKNVCH7866-36-49 08:23:00 Test Item Value Reference Range Interpretation Comments MCHC (test code = MCHC) 31.4 32.0-36.0 [facility] CenterXphmarcAZUAPMWIMX1964-40-15 08:23:00 Test Item Value Reference Range Interpretation Comments MCH (test code = MCH) 22.3 pg 27.0-31.0 [facility] CenterEgkhkepJBWITGAZVX6465-93-22 08:23:00 Test Item Value Reference Range Interpretation Comments MCV (test code = MCV) 71.1 80.0-98.0 [facility] CenterJijatzjAFHFJPIKMZ8845-02-77 08:23:00 Test Item Value Reference Range Interpretation Comments Hct (test code = Hct) 30.0 36.0-48.0 [facility] CenterEmzeyitRYVHZYBDKA3868-12-32 08:23:00 Test Item Value Reference Range Interpretation Comments Hgb (test code = Hgb) 9.4 12.0-16.0 [facility] CenterSndileeYPBJGOJSZO6625-16-73 08:23:00 Test Item Value Reference Range Interpretation Comments Platelet (test code = Platelet) 309 133-450 [facility] CenterTxyliadJQJIDSFPKT3316-80-41 08:23:00 Test Item Value Reference Range Interpretation Comments RDW (test code = RDW) 17.4 11.5-14.5 [facility] CenterVvbvxcwTTWXEFQTMM0623-56-57 08:23:00 Test Item Value Reference Range Interpretation Comments MPV (test code = MPV) 7.8 7.4-10.4 [facility] CenterKmtzphjABGNRVPRDC6753-78-92 08:23:00 Test Item Value Reference Range Interpretation Comments RBC (test code = RBC) 4.22 4.20-5.40 [facility] CenterSbppyhxRLSTWZMKSF2251-19-74 08:23:00 Test Item Value Reference Range Interpretation Comments WBC (test code = WBC) 9.6 3.7-10.4 [facility] CenterPmeqtbzJOHVYTJQFR0175-28-36 08:23:00 Test Item Value Reference Range Interpretation Comments Eosinophils # (test code 0.1 See_Comment [A utomated message] The = Eosinophils #) system whic h generated this result tra nsmitted reference range : <=0.5. The reference r alee was not used to int erpret this result as normal/abnormal . [facility] CenterIbtvjkgGVTMWPWSEE7315-75-18 08:23:00 Test Item Value Reference Range Interpretation Comments Monocytes # (test code 0.7 See_Comment [Aut omated message] The = Monocytes #) system which generated this result tra nsmitted reference range : <=0.8. The reference r alee was not used to int erpret this result as normal/abnormal . [facility] CenterIrhyaecDGLGJSRSEO6048-72-26 08:23:00 Test Item Value Reference Range Interpretation Comments Lymphocytes # (test code = Lymphocytes 1.8 1.0-5.5 #) [facility] CenterHkkfjfyGEYCPUZAEY6365-22-03 08:23:00 Test Item Value Reference Range Interpretation Comments Neutrophils # (test code = Neutrophils 6.8 1.5-8.1 #) [facility] CenterYksoshkZWUPMDIMWD8053-78-93 08:23:00 Test Item Value Reference Range Interpretation Comments Basophils # (test code 0.1 See_Comment [Aut omated message] The = Basophils #) system which generated this result tra nsmitted reference range : <=0.2. The reference r alee was not used to int erpret this result as normal/abnormal . [facility] CenterQfxajonWDTUJGCRJU0160-60-36 08:23:00 Test Item Value Reference Range Interpretation Comments Microcyte (test code = 2+ *ABN*(07/30/18 Microcyte) 3:23 AM) [facility] CenterFekbxrkBSKKCTPYUJ1002-70-34 08:23:00 Test Item Value Reference Range Interpretation Comments Monocytes (test code = Monocytes) 7.3 2.0-12.0 [facility] CenterOygmaknQOHPQIIJPD4417-50-83 08:23:00 Test Item Value Reference Range Interpretation Comments Lymphocytes (test code = Lymphocytes) 18.8 20.0-40.0 [facility] CenterJvvijrkOQRFFFEPFS2231-29-76 08:23:00 Test Item Value Reference Range Interpretation Comments Segs (test code = Segs) 71.8 45.0-75.0 [facility] CenterSlwequhUKOZQNTJFW8649-79-81 08:23:00 Test Item Value Reference Range Interpretation Comments Basophils (test code = 0.8 See_Comment [Aut omated message] The Basophils) system which ge nerated this result tra nsmitted reference range : <=1.0. The reference r alee was not used to int erpret this result as normal/abnormal . [facility] CenterGaplbgdNZWBBLWCIG7856-88-01 08:23:00 Test Item Value Reference Range Interpretation Comments Eosinophils (test code = 1.3 See_Comment [A utomated message] The Eosinophils) system which ge nerated this result tra nsmitted reference range : <=4.0. The reference r alee was not used to int erpret this result as normal/abnormal . [facility] CenterDypfspyBTTOQGDYYH1351-92-55 08:23:00 Test Item Value Reference Range Interpretation Comments Retic Auto (test code = Retic Auto) 1.7 0.5-1.5 [facility] SoutheastBrirhgbYOKFZN1905-52-33 08:23:00 Test Item Value Reference Range Interpretation Comments VLDL (test code = VLDL) 10 1 [facility] SoutheastYmdzpaySMOKPR3692-48-83 08:23:00 Test Item Value Reference Range Interpretation Comments CHD Risk (test code = CHD Risk) 3.94 1 3.90-5.80 [facility] SoutheastAdkwcjtWWSMZV3909-78-82 08:23:00 Test Item Value Reference Range Interpretation Comments HDL (test code = HDL) 50 [facility]NxgiikfHLXYYG0957-65-55 08:23:00 Test Item Value Reference Range Interpretation Comments Trig (test code = Trig) 50 [facility] HospitalKyfatpnXDVBHV3690-44-86 08:23:00 Test Item Value Reference Range Interpretation Comments Chol (test code = Chol) 197 [facility] HospitalDvennbwEQORGQ0268-72-47 08:23:00 Test Item Value Reference Range Interpretation Comments LDL (Calculated) (test code = LDL 137 (Calculated)) [facility] SQAGDWNMN7860-42-14 08:23:00 Test Item Value Reference Range Interpretation Comments Hgb A1C (test code = Hgb A1C) 6.0 [facility] FQTVJ7162-33-39 08:23:00 Test Item Value Reference Range Interpretation Comments Iron (test code = Iron) 17 30-160 [facility] MHWYS6639-28-17 08:23:00 Test Item Value Reference Range Interpretation Comments TIBC (test code = TIBC) 479 228-428 [facility]2019-05-11 08:23:00 Test Item Value Reference Range Interpretation Comments % Satur Fe (test code = % Satur Fe) 4 12-57 [facility] SSFDZ4468-95-04 08:23:00 Test Item Value Reference Range Interpretation Comments UIBC (test code = UIBC) 462 110-370 [facility] WXQNV0181-35-70 08:23:00 Test Item Value Reference Range Interpretation Comments Ferritin Lvl (test code = Ferritin Lvl) 14 5-204 [facility]2019-05-11 08:23:00 Test Item Value Reference Range Interpretation Comments Vitamin B12 Lvl (test code = Vitamin 682 411-4810 B12 Lvl) [facility] EOINE1167-22-30 08:23:00 Test Item Value Reference Range Interpretation Comments Folate Lvl (test code = Folate Lvl) 7.4 [facility]CARD[facility]AC NCZNJZQ1332-72-38 08:23:00 Test Item Value Reference Range Interpretation Comments Troponin-I (test code no gt See_Comment [Auto mated message] The = Troponin-I) system which g enerated this result transmit kenroy reference range : <=0.40. The reference r alee was not used to interpr et this result as elton l/abnormal. [facility]2019-05-11 08:23:00 Test Item Value Reference Range Interpretation Comments LDH (test code = LDH) 111 98-192 [facility] HealthBvypkchRTBYHGZEDERO3574-72-39 08:23:00 Test Item Value Reference Range Interpretation Comments CO2 (test code = CO2) 30 24-32 [facility] HealthKgvkbnkEKITRCBRFKYQ4319-34-32 08:23:00 Test Item Value Reference Range Interpretation Comments Total Protein (test code = Total 7.3 6.4-8.4 Protein) [facility] HealthPssirlvVITJMZRODWOZ4401-84-49 08:23:00 Test Item Value Reference Range Interpretation Comments Alk Phos (test code = Alk Phos) 116 39-136 [facility] HealthPpiwczhQHSTJWRWHBUW3212-89-51 08:23:00 Test Item Value Reference Range Interpretation Comments B/C Ratio (test code = B/C Ratio) 18 1 6-25 [facility] HealthNoacmhzLPLMEHKXRYAE5129-87-81 08:23:00 Test Item Value Reference Range Interpretation Comments Calcium Lvl (test code = Calcium Lvl) 9.1 8.5-10.5 [facility] HealthIrcdilnFMCNMSSEJRYZ9569-07-78 08:23:00 Test Item Value Reference Range Interpretation Comments AGAP (test code = AGAP) 10.8 10.0-20.0 [facility] HealthHsarlclMJRUOTIVXLWV7994-51-91 08:23:00 Test Item Value Reference Range Interpretation Comments AST (test code = AST) 8 See_Comment [Auto mated message] The system which ge nerated this result transmit kenroy reference range : <=37. The reference range was not used to interpr et this result as elton l/abnormal. [facility] HealthElkpfjpYJHJSPSCPCQE5396-38-02 08:23:00 Test Item Value Reference Range Interpretation Comments ALT (test code = ALT) 14 See_Comment [Auto mated message] The system which ge nerated this result transmit kenroy reference range : <=65. The reference range was not used to interpr et this result as elton l/abnormal. [facility] HealthWhxuhrkQDYKSCCQXVPF5266-31-40 08:23:00 Test Item Value Reference Range Interpretation Comments A/G Ratio (test code = A/G Ratio) 0.7 1 0.7-1.6 [facility] HealthIclwoodRUBVBHTNDLGS1706-62-66 08:23:00 Test Item Value Reference Range Interpretation Comments Globulin (test code = Globulin) 4.3 2.7-4.2 [facility] HealthTkpeivnFBQGAIJIBGYO0509-64-95 08:23:00 Test Item Value Reference Range Interpretation Comments Glucose Lvl (test code = Glucose Lvl) 110 70-99 [facility] HealthBfylxgyLMCUVBJRJLRS4350-70-63 08:23:00 Test Item Value Reference Range Interpretation Comments Chloride Lvl (test code = Chloride Lvl) 99 95-109 [facility] HealthWrmngpoGLRDOIQORGOL1247-17-52 08:23:00 Test Item Value Reference Range Interpretation Comments Potassium Lvl (test code = Potassium 3.8 3.5-5.1 Lvl) [facility] HealthYfjakcjIQDWXLGJNOXF2426-06-09 08:23:00 Test Item Value Reference Range Interpretation Comments Sodium Lvl (test code = Sodium Lvl) 136 135-145 [facility] HealthJbnrrqkVFNDJSMVXVDG1984-85-85 08:23:00 Test Item Value Reference Range Interpretation Comments Creatinine Lvl (test code = Creatinine 0.79 0.50-1.40 Lvl) [facility] HealthGrijvciZUQWLVQCFSEX3610-43-17 08:23:00 Test Item Value Reference Range Interpretation Comments BUN (test code = BUN) 14 7-22 [facility] HealthXwepcraWZIBEIERZSNX5101-80-56 08:23:00 Test Item Value Reference Range Interpretation Comments eGFR (test code = eGFR) 95 [facility] HealthGawnnmoERYYYMZHYQRR3871-61-97 08:23:00 Test Item Value Reference Range Interpretation Comments Bili Total (test code = Bili Total) 0.3 0.2-1.3 [facility] HealthGzapvtiHOMMIUPDFBBV9797-25-17 08:23:00 Test Item Value Reference Range Interpretation Comments Albumin Lvl (test code = Albumin Lvl) 3.0 3.5-5.0 [facility] CenterByiaaweGTDXUZNTSR5226-27-13 08:23:00 Test Item Value Reference Range Interpretation Comments MCHC (test code = MCHC) 31.4 32.0-36.0 [facility] CenterGqxokyzHZNCPOTNFP1054-93-99 08:23:00 Test Item Value Reference Range Interpretation Comments MCH (test code = MCH) 22.3 pg 27.0-31.0 [facility] CenterUwuisntMUPUNCNBQG9644-80-92 08:23:00 Test Item Value Reference Range Interpretation Comments MCV (test code = MCV) 71.1 80.0-98.0 [facility] CenterNzuurfkSHSHWPBNRG6068-07-60 08:23:00 Test Item Value Reference Range Interpretation Comments Hct (test code = Hct) 30.0 36.0-48.0 [facility] CenterFizssxmPSUIEDTAKO5571-91-09 08:23:00 Test Item Value Reference Range Interpretation Comments Hgb (test code = Hgb) 9.4 12.0-16.0 [facility] CenterRbykphkMOHAFMOVJK1278-59-03 08:23:00 Test Item Value Reference Range Interpretation Comments Platelet (test code = Platelet) 309 133-450 [facility] CenterDgdsxesNAQBXQRSKV8356-66-57 08:23:00 Test Item Value Reference Range Interpretation Comments RDW (test code = RDW) 17.4 11.5-14.5 [facility] CenterFwyutsrJCYPFQHXOL3959-02-73 08:23:00 Test Item Value Reference Range Interpretation Comments MPV (test code = MPV) 7.8 7.4-10.4 [facility] CenterJyefsaeLIYBFCXVCS2249-56-91 08:23:00 Test Item Value Reference Range Interpretation Comments RBC (test code = RBC) 4.22 4.20-5.40 [facility] CenterUnhpdknYQQQTBDMVK4946-34-45 08:23:00 Test Item Value Reference Range Interpretation Comments WBC (test code = WBC) 9.6 3.7-10.4 [facility] CenterGmbjopiUSEYOJOWRK9186-26-58 08:23:00 Test Item Value Reference Range Interpretation Comments Eosinophils # (test code 0.1 See_Comment [A utomated message] The = Eosinophils #) system whic h generated this result tra nsmitted reference range : <=0.5. The reference r alee was not used to int erpret this result as normal/abnormal . [facility] CenterOtjxybyGYDLJGZOFC6381-03-71 08:23:00 Test Item Value Reference Range Interpretation Comments Monocytes # (test code 0.7 See_Comment [Aut omated message] The = Monocytes #) system which generated this result tra nsmitted reference range : <=0.8. The reference r alee was not used to int erpret this result as normal/abnormal . [facility] CenterNbnposqLQLPJCIPPJ6025-24-68 08:23:00 Test Item Value Reference Range Interpretation Comments Lymphocytes # (test code = Lymphocytes 1.8 1.0-5.5 #) [facility] CenterUwlizmrMXUYNCANGO9126-27-38 08:23:00 Test Item Value Reference Range Interpretation Comments Neutrophils # (test code = Neutrophils 6.8 1.5-8.1 #) [facility] CenterTmbjikrLECGGHLKFO3701-87-52 08:23:00 Test Item Value Reference Range Interpretation Comments Basophils # (test code 0.1 See_Comment [Aut omated message] The = Basophils #) system which generated this result tra nsmitted reference range : <=0.2. The reference r alee was not used to int erpret this result as normal/abnormal . [facility] CenterPuxtmbgOKZJIZNAUU6896-22-82 08:23:00 Test Item Value Reference Range Interpretation Comments Microcyte (test code = 2+ *ABN*(07/30/18 Microcyte) 3:23 AM) [facility] CenterHyxhyoxSZRWTMSZUS8960-09-83 08:23:00 Test Item Value Reference Range Interpretation Comments Monocytes (test code = Monocytes) 7.3 2.0-12.0 [facility] CenterItwujsyIKZYTKCYXN9257-16-06 08:23:00 Test Item Value Reference Range Interpretation Comments Lymphocytes (test code = Lymphocytes) 18.8 20.0-40.0 [facility] CenterJlogvddAXEYDCUTCQ1842-14-69 08:23:00 Test Item Value Reference Range Interpretation Comments Segs (test code = Segs) 71.8 45.0-75.0 [facility] CenterTuciixqOTVNTYRYOE9676-05-97 08:23:00 Test Item Value Reference Range Interpretation Comments Basophils (test code = 0.8 See_Comment [Aut omated message] The Basophils) system which ge nerated this result tra nsmitted reference range : <=1.0. The reference r alee was not used to int erpret this result as normal/abnormal . [facility] CenterPexyxiqHIQKEKTHQU1274-99-82 08:23:00 Test Item Value Reference Range Interpretation Comments Eosinophils (test code = 1.3 See_Comment [A utomated message] The Eosinophils) system which ge nerated this result tra nsmitted reference range : <=4.0. The reference r alee was not used to int erpret this result as normal/abnormal . [facility] CenterRfmfzkeUPRZSSAONX9014-15-91 08:23:00 Test Item Value Reference Range Interpretation Comments Retic Auto (test code = Retic Auto) 1.7 0.5-1.5 [facility]CxdzpijKAQZRE8948-51-18 08:23:00 Test Item Value Reference Range Interpretation Comments VLDL (test code = VLDL) 10 1 [facility]ym[facility]uiWVMDQX2529[facility] 08:23:00 Test Item Value Reference Range Interpretation Comments CHD Risk (test code = CHD Risk) 3.94 1 3.90-5.80 [facility]ltcXSSNII7638-33-53 08:23:00 Test Item Value Reference Range Interpretation Comments HDL (test code = HDL) 50 [facility]NxwxjiuVARXDI4480-03-75 08:23:00 Test Item Value Reference Range Interpretation Comments Trig (test code = Trig) 50 [facility]MpxakrrCZVODB4836-18-94 08:23:00 Test Item Value Reference Range Interpretation Comments Chol (test code = Chol) 197 [facility] SoutheastXveeotyKMOUXB6372-70-33 08:23:00 Test Item Value Reference Range Interpretation Comments LDL (Calculated) (test code = LDL 137 (Calculated)) [facility] BJTJSAPZG0621-05-81 08:23:00 Test Item Value Reference Range Interpretation Comments Hgb A1C (test code = Hgb A1C) 6.0 [facility]2019-05-11 08:23:00 Test Item Value Reference Range Interpretation Comments Iron (test code = Iron) 17 30-160 [facility]2019-05-11 08:23:00 Test Item Value Reference Range Interpretation Comments TIBC (test code = TIBC) 479 228-428 [facility]2019-05-11 08:23:00 Test Item Value Reference Range Interpretation Comments % Satur Fe (test code = % Satur Fe) 4 12-57 [facility]2019-05-11 08:23:00 Test Item Value Reference Range Interpretation Comments UIBC (test code = UIBC) 462 110-370 [facility]2019-05-11 08:23:00 Test Item Value Reference Range Interpretation Comments Ferritin Lvl (test code = Ferritin Lvl) 14 5-204 [facility]2019-05-11 08:23:00 Test Item Value Reference Range Interpretation Comments Vitamin B12 Lvl (test code = Vitamin [phone] B12 Lvl) [facility]2019-05-11 08:23:00 Test Item Value Reference Range Interpretation Comments Folate Lvl (test code = Folate Lvl) 7.4 [facility] ZGPUNLZ0587-44-04 08:23:00 Test Item Value Reference Range Interpretation Comments Troponin-I (test code no gt See_Comment [Auto mated message] The = Troponin-I) system which g enerated this result transmit kenroy reference range : <=0.40. The reference r alee was not used to interpr et this result as elton l/abnormal. [facility]CHE[facility] WJFVJ1475-39-86 08:23:00 Test Item Value Reference Range Interpretation Comments LDH (test code = LDH) 111 98-192 [facility] HealthLukenblFZKGEMNVZGCU4191-82-50 08:23:00 Test Item Value Reference Range Interpretation Comments CO2 (test code = CO2) 30 24-32 [facility] HealthSdltdniQJNGTRLZNMNT9934-13-51 08:23:00 Test Item Value Reference Range Interpretation Comments Total Protein (test code = Total 7.3 6.4-8.4 Protein) [facility] HealthQnngaxlILOSAGSVWBFY7246-60-19 08:23:00 Test Item Value Reference Range Interpretation Comments Alk Phos (test code = Alk Phos) 116 39-136 [facility] HealthFupksyfHQSWHMCMDOBM4550-34-51 08:23:00 Test Item Value Reference Range Interpretation Comments B/C Ratio (test code = B/C Ratio) 18 1 6-25 [facility] HealthUrkgcziHJXCRWQTHBWB8572-43-34 08:23:00 Test Item Value Reference Range Interpretation Comments Calcium Lvl (test code = Calcium Lvl) 9.1 8.5-10.5 [facility] HealthQxkfgfqHKWUWBCTPTBO1019-79-55 08:23:00 Test Item Value Reference Range Interpretation Comments AGAP (test code = AGAP) 10.8 10.0-20.0 [facility] HealthNttrrddSIAECIQYYLDS3999-56-59 08:23:00 Test Item Value Reference Range Interpretation Comments AST (test code = AST) 8 See_Comment [Auto mated message] The system which ge nerated this result transmit kenroy reference range : <=37. The reference range was not used to interpr et this result as elton l/abnormal. [facility]VluvgsaDUPOTLWPYGWX9493-73-03 08:23:00 Test Item Value Reference Range Interpretation Comments ALT (test code = ALT) 14 See_Comment [Auto mated message] The system which ge nerated this result transmit kenroy reference range : <=65. The reference range was not used to interpr et this result as elton l/abnormal. [facility] HealthHrikodcATXLOOHNXFSI3935-50-93 08:23:00 Test Item Value Reference Range Interpretation Comments A/G Ratio (test code = A/G Ratio) 0.7 1 0.7-1.6 [facility] HealthDszszivWGVYYKTALHDB9423-40-83 08:23:00 Test Item Value Reference Range Interpretation Comments Globulin (test code = Globulin) 4.3 2.7-4.2 [facility] HealthYdyknfhLDROCNMGYTPB8154-56-47 08:23:00 Test Item Value Reference Range Interpretation Comments Glucose Lvl (test code = Glucose Lvl) 110 70-99 [facility] HealthOdbuoqnUVCZBCCNKOSP0357-17-82 08:23:00 Test Item Value Reference Range Interpretation Comments Chloride Lvl (test code = Chloride Lvl) 99 95-109 [facility] HealthNxvurbcLIRXMFEBIRFX4085-23-31 08:23:00 Test Item Value Reference Range Interpretation Comments Potassium Lvl (test code = Potassium 3.8 3.5-5.1 Lvl) [facility] HealthKrestgbHGURTJUUCNIQ2283-62-02 08:23:00 Test Item Value Reference Range Interpretation Comments Sodium Lvl (test code = Sodium Lvl) 136 135-145 [facility] HealthEgrtypwXNDHMFXVOTXU6839-85-73 08:23:00 Test Item Value Reference Range Interpretation Comments Creatinine Lvl (test code = Creatinine 0.79 0.50-1.40 Lvl) [facility] HealthCfjpirdLWVDZAQYVEWP2591-69-34 08:23:00 Test Item Value Reference Range Interpretation Comments BUN (test code = BUN) 14 7-22 [facility] HealthMbruuilFBBGWZZELEVE3206-82-32 08:23:00 Test Item Value Reference Range Interpretation Comments eGFR (test code = eGFR) 95 [facility] HealthQzpwhvyHHWJIXFXWSWX2262-53-24 08:23:00 Test Item Value Reference Range Interpretation Comments Bili Total (test code = Bili Total) 0.3 0.2-1.3 [facility] HealthKooohnuYYHFADDAMJYS2501-52-68 08:23:00 Test Item Value Reference Range Interpretation Comments Albumin Lvl (test code = Albumin Lvl) 3.0 3.5-5.0 [facility] HospitalKyuyjrhOGZFIBPJAG0684-66-96 08:23:00 Test Item Value Reference Range Interpretation Comments MCHC (test code = MCHC) 31.4 32.0-36.0 [facility]FxjobjuYBFAQMQMXS8594-74-81 08:23:00 Test Item Value Reference Range Interpretation Comments MCH (test code = MCH) 22.3 pg 27.0-31.0 [facility] CenterAutmyhaWGRWVMPDKP2792-56-80 08:23:00 Test Item Value Reference Range Interpretation Comments MCV (test code = MCV) 71.1 80.0-98.0 [facility] CenterGfrrhzrUFGNXBCREE0716-02-19 08:23:00 Test Item Value Reference Range Interpretation Comments Hct (test code = Hct) 30.0 36.0-48.0 [facility] CenterZfhllqpKUNNTVAILO4596-34-08 08:23:00 Test Item Value Reference Range Interpretation Comments Hgb (test code = Hgb) 9.4 12.0-16.0 [facility] CenterBubtugcHVUVCVIZQN1955-52-98 08:23:00 Test Item Value Reference Range Interpretation Comments Platelet (test code = Platelet) 309 133-450 [facility] CenterLipwaptBVOTTWWPGN4271-59-43 08:23:00 Test Item Value Reference Range Interpretation Comments RDW (test code = RDW) 17.4 11.5-14.5 [facility] CenterPeoigweGKAZUQHWCE5049-33-78 08:23:00 Test Item Value Reference Range Interpretation Comments MPV (test code = MPV) 7.8 7.4-10.4 [facility] CenterGmpmzguDDWWIHEFLC7890-39-61 08:23:00 Test Item Value Reference Range Interpretation Comments RBC (test code = RBC) 4.22 4.20-5.40 [facility] CenterOoythctORVKAKXGUX6998-28-04 08:23:00 Test Item Value Reference Range Interpretation Comments WBC (test code = WBC) 9.6 3.7-10.4 [facility] CenterJmcqlbkZECPBISVSA8003-28-70 08:23:00 Test Item Value Reference Range Interpretation Comments Eosinophils # (test code 0.1 See_Comment [A utomated message] The = Eosinophils #) system whic h generated this result tra nsmitted reference range : <=0.5. The reference r alee was not used to int erpret this result as normal/abnormal . [facility] CenterWcmwoksJLHXWRTZLA8501-12-93 08:23:00 Test Item Value Reference Range Interpretation Comments Monocytes # (test code 0.7 See_Comment [Aut omated message] The = Monocytes #) system which generated this result tra nsmitted reference range : <=0.8. The reference r alee was not used to int erpret this result as normal/abnormal . [facility] CenterSmhmwawTHNAYPJKXQ9737-71-50 08:23:00 Test Item Value Reference Range Interpretation Comments Lymphocytes # (test code = Lymphocytes 1.8 1.0-5.5 #) [facility] CenterIxgxcmaSKGTHSZYKS5315-14-15 08:23:00 Test Item Value Reference Range Interpretation Comments Neutrophils # (test code = Neutrophils 6.8 1.5-8.1 #) [facility] CenterQaxoggmBRVKMJXADX1475-82-55 08:23:00 Test Item Value Reference Range Interpretation Comments Basophils # (test code 0.1 See_Comment [Aut omated message] The = Basophils #) system which generated this result tra nsmitted reference range : <=0.2. The reference r alee was not used to int erpret this result as normal/abnormal . [facility] CenterDvkyowtIVQGNUXGQQ2461-55-09 08:23:00 Test Item Value Reference Range Interpretation Comments Microcyte (test code = 2+ *ABN*(07/30/18 Microcyte) 3:23 AM) [facility] CenterDoolduzWLMWSDPDAV2956-43-02 08:23:00 Test Item Value Reference Range Interpretation Comments Monocytes (test code = Monocytes) 7.3 2.0-12.0 [facility] CenterRmvgyeySXJQCCNLLG5053-60-88 08:23:00 Test Item Value Reference Range Interpretation Comments Lymphocytes (test code = Lymphocytes) 18.8 20.0-40.0 [facility] CenterYppoxguFXYQEJRPGR9769-41-00 08:23:00 Test Item Value Reference Range Interpretation Comments Segs (test code = Segs) 71.8 45.0-75.0 [facility] CenterCxqermhIXSXUQDKMC3480-32-08 08:23:00 Test Item Value Reference Range Interpretation Comments Basophils (test code = 0.8 See_Comment [Aut omated message] The Basophils) system which ge nerated this result tra nsmitted reference range : <=1.0. The reference r alee was not used to int erpret this result as normal/abnormal . [facility] CenterLcxiojwVYHQXWLJWW0039-90-95 08:23:00 Test Item Value Reference Range Interpretation Comments Eosinophils (test code = 1.3 See_Comment [A utomated message] The Eosinophils) system which ge nerated this result tra nsmitted reference range : <=4.0. The reference r alee was not used to int erpret this result as normal/abnormal . [facility]JrkgppjHBLKEQDQPB8389-99-05 08:23:00 Test Item Value Reference Range Interpretation Comments Retic Auto (test code = Retic Auto) 1.7 0.5-1.5 [facility]BaailvbGVZDKZ3607-15-98 08:23:00 Test Item Value Reference Range Interpretation Comments VLDL (test code = VLDL) 10 1 [facility] SoutheastWuqfytmVIVYTL8099-27-61 08:23:00 Test Item Value Reference Range Interpretation Comments CHD Risk (test code = CHD Risk) 3.94 1 3.90-5.80 [facility] SoutheastQmosgdnPJQHPV6182-90-70 08:23:00 Test Item Value Reference Range Interpretation Comments HDL (test code = HDL) 50 [facility] SoutheastGlfhbsaSWPOCY8204-38-62 08:23:00 Test Item Value Reference Range Interpretation Comments Trig (test code = Trig) 50 [facility] SoutheastSpynaqmEDMGCQ8834-66-59 08:23:00 Test Item Value Reference Range Interpretation Comments Chol (test code = Chol) 197 [facility] SoutheastJqkltirLGMIEM9902-18-16 08:23:00 Test Item Value Reference Range Interpretation Comments LDL (Calculated) (test code = LDL 137 (Calculated)) [facility] ZRUFTWIIM7532-35-53 08:23:00 Test Item Value Reference Range Interpretation Comments Hgb A1C (test code = Hgb A1C) 6.0 [facility]2019-05-11 08:23:00 Test Item Value Reference Range Interpretation Comments Iron (test code = Iron) 17 30-160 [facility]2019-05-11 08:23:00 Test Item Value Reference Range Interpretation Comments TIBC (test code = TIBC) 479 228428 [facility]2019-05-11 08:23:00 Test Item Value Reference Range Interpretation Comments % Satur Fe (test code = % Satur Fe) 4 12-57 [facility]2019-05-11 08:23:00 Test Item Value Reference Range Interpretation Comments UIBC (test code = UIBC) 462 110-370 [facility]2019-05-11 08:23:00 Test Item Value Reference Range Interpretation Comments Ferritin Lvl (test code = Ferritin Lvl) 14 5-204 [facility] CXARX3757-31-23 08:23:00 Test Item Value Reference Range Interpretation Comments Vitamin B12 Lvl (test code = Vitamin [phone] B12 Lvl) [facility] YCRHH3284-92-71 08:23:00 Test Item Value Reference Range Interpretation Comments Folate Lvl (test code = Folate Lvl) 7.4 [facility] RHGGVUJ4400-20-18 08:23:00 Test Item Value Reference Range Interpretation Comments Troponin-I (test code no gt See_Comment [Auto mated message] The = Troponin-I) system which g enerated this result transmit kenroy reference range : <=0.40. The reference r alee was not used to interpr et this result as elton l/abnormal. [facility]CHE[facility] INUKE5630-93-54 08:23:00 Test Item Value Reference Range Interpretation Comments LDH (test code = LDH) 111 98-192 [facility] HealthCqkqlisRGCMGOXBFGZN6957-33-42 08:23:00 Test Item Value Reference Range Interpretation Comments CO2 (test code = CO2) 30 24-32 [facility] CenterTgmtohkZRTLBQRJZQDH3471-52-90 08:23:00 Test Item Value Reference Range Interpretation Comments Total Protein (test code = Total 7.3 6.4-8.4 Protein) [facility] CenterRbfvsdcWINFSGZEDIKJ6632-92-70 08:23:00 Test Item Value Reference Range Interpretation Comments Alk Phos (test code = Alk Phos) 116 39-136 [facility] HealthFffbiwfRKZFALBTDWMY0740-36-55 08:23:00 Test Item Value Reference Range Interpretation Comments B/C Ratio (test code = B/C Ratio) 18 1 6-25 [facility] CenterMpsxjbrXZOWSKDLMVAI7946-46-15 08:23:00 Test Item Value Reference Range Interpretation Comments Calcium Lvl (test code = Calcium Lvl) 9.1 8.5-10.5 [facility] HealthAsiorsfVXCIACOKCXVN4197-29-62 08:23:00 Test Item Value Reference Range Interpretation Comments AGAP (test code = AGAP) 10.8 10.0-20.0 [facility] HealthHauqcorRQVVIWYRHQGK3352-67-97 08:23:00 Test Item Value Reference Range Interpretation Comments AST (test code = AST) 8 See_Comment [Auto mated message] The system which ge nerated this result transmit kenroy reference range : <=37. The reference range was not used to interpr et this result as elton l/abnormal. [facility] HealthGxygfbeIRRLFADNRQLW0577-99-35 08:23:00 Test Item Value Reference Range Interpretation Comments ALT (test code = ALT) 14 See_Comment [Auto mated message] The system which ge nerated this result transmit kenroy reference range : <=65. The reference range was not used to interpr et this result as elton l/abnormal. [facility] HealthVtvnghsMMSLFVBHJZMX9817-15-70 08:23:00 Test Item Value Reference Range Interpretation Comments A/G Ratio (test code = A/G Ratio) 0.7 1 0.7-1.6 [facility] HealthLbrdadmDFHJIVDEQHHO9194-36-46 08:23:00 Test Item Value Reference Range Interpretation Comments Globulin (test code = Globulin) 4.3 2.7-4.2 [facility] HealthRsuffraFXREKKLCDIAU3439-12-07 08:23:00 Test Item Value Reference Range Interpretation Comments Glucose Lvl (test code = Glucose Lvl) 110 70-99 [facility] HealthKjfvbwjTNWUQHDUBEQT1884-36-45 08:23:00 Test Item Value Reference Range Interpretation Comments Chloride Lvl (test code = Chloride Lvl) 99 95-109 [facility] HealthLpqzztgEVVWIHHDVZJU9666-48-85 08:23:00 Test Item Value Reference Range Interpretation Comments Potassium Lvl (test code = Potassium 3.8 3.5-5.1 Lvl) [facility] HealthJwckqybERWLOIOSNOSC9906-68-61 08:23:00 Test Item Value Reference Range Interpretation Comments Sodium Lvl (test code = Sodium Lvl) 136 135-145 [facility] HealthFqsbdqbDZHZVNQVYDWI9948-89-17 08:23:00 Test Item Value Reference Range Interpretation Comments Creatinine Lvl (test code = Creatinine 0.79 0.50-1.40 Lvl) [facility] HealthLmyxlxgBQZFSDZVVXBW5646-42-77 08:23:00 Test Item Value Reference Range Interpretation Comments BUN (test code = BUN) 14 7-22 [facility] HealthYcbegfjOAEXOUZYFBKO5566-74-15 08:23:00 Test Item Value Reference Range Interpretation Comments eGFR (test code = eGFR) 95 [facility] HealthStacrltXZCEUSHPINWS1850-36-78 08:23:00 Test Item Value Reference Range Interpretation Comments Bili Total (test code = Bili Total) 0.3 0.2-1.3 [facility] CenterItzgdguAKFPBENIQFJU2854-38-50 08:23:00 Test Item Value Reference Range Interpretation Comments Albumin Lvl (test code = Albumin Lvl) 3.0 3.5-5.0 [facility] CenterEzqthiwBYTKMCLICZ7691-35-37 08:23:00 Test Item Value Reference Range Interpretation Comments MCHC (test code = MCHC) 31.4 32.0-36.0 [facility] CenterCpbekeuJQDAAKJKLY2350-82-31 08:23:00 Test Item Value Reference Range Interpretation Comments MCH (test code = MCH) 22.3 pg 27.0-31.0 [facility] HospitalMjjusraPKVZMZPYTP2244-13-67 08:23:00 Test Item Value Reference Range Interpretation Comments MCV (test code = MCV) 71.1 80.0-98.0 [facility] CenterTqohwcuZRWBHENWVH6911-92-90 08:23:00 Test Item Value Reference Range Interpretation Comments Hct (test code = Hct) 30.0 36.0-48.0 [facility] HospitalNgsnfhgWCACKVJAHK5468-20-09 08:23:00 Test Item Value Reference Range Interpretation Comments Hgb (test code = Hgb) 9.4 12.0-16.0 [facility] HospitalQqzjrpnDXCDGGBIGY3456-45-44 08:23:00 Test Item Value Reference Range Interpretation Comments Platelet (test code = Platelet) 309 133-450 [facility] HospitalUpxfaqkGROOTLGXGF6961-73-87 08:23:00 Test Item Value Reference Range Interpretation Comments RDW (test code = RDW) 17.4 11.5-14.5 [facility] HospitalSqfsxqbFPBALQZMPB9237-92-29 08:23:00 Test Item Value Reference Range Interpretation Comments MPV (test code = MPV) 7.8 7.4-10.4 [facility] HospitalVntfgapCZXSAKZHCU0369-91-84 08:23:00 Test Item Value Reference Range Interpretation Comments RBC (test code = RBC) 4.22 4.20-5.40 [facility] HospitalFdoazmgNRHUOZBKCT0055-93-19 08:23:00 Test Item Value Reference Range Interpretation Comments WBC (test code = WBC) 9.6 3.7-10.4 [facility] HospitalRgnrphlIBAXCSGDOA4047-97-51 08:23:00 Test Item Value Reference Range Interpretation Comments Eosinophils # (test code 0.1 See_Comment [A utomated message] The = Eosinophils #) system whic h generated this result tra nsmitted reference range : <=0.5. The reference r alee was not used to int erpret this result as normal/abnormal . [facility] CenterIajrwxrSZAFTSUWVR0264-16-39 08:23:00 Test Item Value Reference Range Interpretation Comments Monocytes # (test code 0.7 See_Comment [Aut omated message] The = Monocytes #) system which generated this result tra nsmitted reference range : <=0.8. The reference r alee was not used to int erpret this result as normal/abnormal . [facility] CenterAwfbbviYZBVUNXLLI3074-15-30 08:23:00 Test Item Value Reference Range Interpretation Comments Lymphocytes # (test code = Lymphocytes 1.8 1.0-5.5 #) [facility] CenterBhiqqgsQVXOIKLDAR0640-50-11 08:23:00 Test Item Value Reference Range Interpretation Comments Neutrophils # (test code = Neutrophils 6.8 1.5-8.1 #) [facility] CenterFvlwwwpPPSRICYUUK8923-31-22 08:23:00 Test Item Value Reference Range Interpretation Comments Basophils # (test code 0.1 See_Comment [Aut omated message] The = Basophils #) system which generated this result tra nsmitted reference range : <=0.2. The reference r alee was not used to int erpret this result as normal/abnormal . [facility] CenterJdwtwtcJUIGAVHCWV3013-96-46 08:23:00 Test Item Value Reference Range Interpretation Comments Microcyte (test code = 2+ *ABN*(07/30/18 Microcyte) 3:23 AM) [facility] CenterFemekcxFHEYTZXAMR8152-48-07 08:23:00 Test Item Value Reference Range Interpretation Comments Monocytes (test code = Monocytes) 7.3 2.0-12.0 [facility] CenterHyjmwmnRSPTYSOKLJ1517-34-82 08:23:00 Test Item Value Reference Range Interpretation Comments Lymphocytes (test code = Lymphocytes) 18.8 20.0-40.0 [facility] CenterZouoloiUMZMBTEDMY0147-99-71 08:23:00 Test Item Value Reference Range Interpretation Comments Segs (test code = Segs) 71.8 45.0-75.0 [facility] CenterSorfqzhBQQMIVDKHU2763-57-75 08:23:00 Test Item Value Reference Range Interpretation Comments Basophils (test code = 0.8 See_Comment [Aut omated message] The Basophils) system which ge nerated this result tra nsmitted reference range : <=1.0. The reference r alee was not used to int erpret this result as normal/abnormal . [facility] CenterJuabdfqAULNOPFTNA9102-98-15 08:23:00 Test Item Value Reference Range Interpretation Comments Eosinophils (test code = 1.3 See_Comment [A utomated message] The Eosinophils) system which ge nerated this result tra nsmitted reference range : <=4.0. The reference r alee was not used to int erpret this result as normal/abnormal . [facility] CenterNvqnclyLERNIBVLUI3254-69-52 08:23:00 Test Item Value Reference Range Interpretation Comments Retic Auto (test code = Retic Auto) 1.7 0.5-1.5 [facility] HospitalVolexcqCXSFWW1596-15-15 08:23:00 Test Item Value Reference Range Interpretation Comments VLDL (test code = VLDL) 10 1 [facility] HospitalYjmbumlIVBXRI5843-78-47 08:23:00 Test Item Value Reference Range Interpretation Comments CHD Risk (test code = CHD Risk) 3.94 1 3.90-5.80 [facility] HospitalExndpirQIMIJH0217-71-83 08:23:00 Test Item Value Reference Range Interpretation Comments HDL (test code = HDL) 50 [facility] HospitalFaomfshYIVXRT2072-18-35 08:23:00 Test Item Value Reference Range Interpretation Comments Trig (test code = Trig) 50 [facility] HospitalFhodtipDOLQCL5695-85-04 08:23:00 Test Item Value Reference Range Interpretation Comments Chol (test code = Chol) 197 [facility] HospitalRwvzpnzCOWAQX3230-51-76 08:23:00 Test Item Value Reference Range Interpretation Comments LDL (Calculated) (test code = LDL 137 (Calculated)) [facility] VKVBZSTGW4569-27-76 08:23:00 Test Item Value Reference Range Interpretation Comments Hgb A1C (test code = Hgb A1C) 6.0 [facility] WHNSH6051-93-64 08:23:00 Test Item Value Reference Range Interpretation Comments Iron (test code = Iron) 17 30-160 [facility] UDANO2207-42-46 08:23:00 Test Item Value Reference Range Interpretation Comments TIBC (test code = TIBC) 057 169-508 [facility] JOWOU7649-14-15 08:23:00 Test Item Value Reference Range Interpretation Comments % Satur Fe (test code = % Satur Fe) 4 12-57 [facility] LMCFI1738-03-00 08:23:00 Test Item Value Reference Range Interpretation Comments UIBC (test code = UIBC) 462 110-370 [facility]2019-05-11 08:23:00 Test Item Value Reference Range Interpretation Comments Ferritin Lvl (test code = Ferritin Lvl) 14 5-204 [facility] ESROG6726-82-34 08:23:00 Test Item Value Reference Range Interpretation Comments Vitamin B12 Lvl (test code = Vitamin [phone] B12 Lvl) [facility] BQTWQ0080-32-43 08:23:00 Test Item Value Reference Range Interpretation Comments Folate Lvl (test code = Folate Lvl) 7.4 [facility] BOYHXEV4454-57-79 08:23:00 Test Item Value Reference Range Interpretation Comments Troponin-I (test code no gt See_Comment [Auto mated message] The = Troponin-I) system which g enerated this result transmit kenroy reference range : <=0.40. The reference r alee was not used to interpr et this result as elton l/abnormal. [facility] [id number] 08:23:00 Test Item Value Reference Range Interpretation Comments LDH (test code = LDH) 111 98-192 [facility]ChbatefRWXFKSIKCVES0714-56-16 08:23:00 Test Item Value Reference Range Interpretation Comments CO2 (test code = CO2) 30 24-32 [facility] HealthDtilvyjAFSVRNYDDFPO3359-12-35 08:23:00 Test Item Value Reference Range Interpretation Comments Total Protein (test code = Total 7.3 6.4-8.4 Protein) [facility] HealthVksfasdHWUOMTSOZSAF5905-06-01 08:23:00 Test Item Value Reference Range Interpretation Comments Alk Phos (test code = Alk Phos) 116 39-136 [facility] HealthUcsrwybFUEVTOJVAIEU9838-03-71 08:23:00 Test Item Value Reference Range Interpretation Comments B/C Ratio (test code = B/C Ratio) 18 1 6-25 [facility] HealthEnyfdyjTXTTOSUTFFCI2040-83-61 08:23:00 Test Item Value Reference Range Interpretation Comments Calcium Lvl (test code = Calcium Lvl) 9.1 8.5-10.5 [facility] HealthXsrgslzVWGKLAIOLTGN4698-24-15 08:23:00 Test Item Value Reference Range Interpretation Comments AGAP (test code = AGAP) 10.8 10.0-20.0 [facility] HealthMeewcnmVPUPEIVGLWIJ8282-33-25 08:23:00 Test Item Value Reference Range Interpretation Comments AST (test code = AST) 8 See_Comment [Auto mated message] The system which ge nerated this result transmit kenroy reference range : <=37. The reference range was not used to interpr et this result as elton l/abnormal. [facility] HealthGvanzodUBAGNDKWRWGS0809-57-31 08:23:00 Test Item Value Reference Range Interpretation Comments ALT (test code = ALT) 14 See_Comment [Auto mated message] The system which ge nerated this result transmit kenroy reference range : <=65. The reference range was not used to interpr et this result as elton l/abnormal. [facility] HealthFfrcxbsKQULAXHSBIMO3951-63-36 08:23:00 Test Item Value Reference Range Interpretation Comments A/G Ratio (test code = A/G Ratio) 0.7 1 0.7-1.6 [facility] HealthXkppsziXNAKDZIDGTIE1391-46-19 08:23:00 Test Item Value Reference Range Interpretation Comments Globulin (test code = Globulin) 4.3 2.7-4.2 [facility] HealthRhounjxCVPPVOLMOFVK5784-16-16 08:23:00 Test Item Value Reference Range Interpretation Comments Glucose Lvl (test code = Glucose Lvl) 110 70-99 [facility] HealthSvasbhsWUJARGMPWEXS8265-87-11 08:23:00 Test Item Value Reference Range Interpretation Comments Chloride Lvl (test code = Chloride Lvl) 99 95-109 [facility] HealthDbmxpeaTPRVCOTGPRIV9280-23-89 08:23:00 Test Item Value Reference Range Interpretation Comments Potassium Lvl (test code = Potassium 3.8 3.5-5.1 Lvl) [facility] HealthLqycoclQMGIIEYSHDAY5708-79-88 08:23:00 Test Item Value Reference Range Interpretation Comments Sodium Lvl (test code = Sodium Lvl) 136 135-145 [facility] HealthMbutytjTGHOXDROUHRC2634-67-00 08:23:00 Test Item Value Reference Range Interpretation Comments Creatinine Lvl (test code = Creatinine 0.79 0.50-1.40 Lvl) [facility] HealthCobkaphKODKKSSZWUHM7296-73-62 08:23:00 Test Item Value Reference Range Interpretation Comments BUN (test code = BUN) 14 7-22 [facility] HealthGnsgiftHLURRZBCHLAA0740-79-71 08:23:00 Test Item Value Reference Range Interpretation Comments eGFR (test code = eGFR) 95 [facility] HealthLriekevJTTVTJACZETQ6509-29-98 08:23:00 Test Item Value Reference Range Interpretation Comments Bili Total (test code = Bili Total) 0.3 0.2-1.3 [facility] HealthDcnagqaUZUFDXBFWOVR6137-98-53 08:23:00 Test Item Value Reference Range Interpretation Comments Albumin Lvl (test code = Albumin Lvl) 3.0 3.5-5.0 [facility]JlrpucxZOAILMXKXM5070-51-55 08:23:00 Test Item Value Reference Range Interpretation Comments MCHC (test code = MCHC) 31.4 32.0-36.0 [facility] CenterJaxcnkgCBREWKKVNI8109-41-66 08:23:00 Test Item Value Reference Range Interpretation Comments MCH (test code = MCH) 22.3 pg 27.0-31.0 [facility] CenterJilvxlhKXNMVAMFWC8600-21-55 08:23:00 Test Item Value Reference Range Interpretation Comments MCV (test code = MCV) 71.1 80.0-98.0 [facility] CenterBsfamgeLOBQPANZVZ1400-72-72 08:23:00 Test Item Value Reference Range Interpretation Comments Hct (test code = Hct) 30.0 36.0-48.0 [facility] CenterOxwzngtEIGNISTPSG3439-81-72 08:23:00 Test Item Value Reference Range Interpretation Comments Hgb (test code = Hgb) 9.4 12.0-16.0 [facility] CenterTqiygmmLWLQACIQWY0162-17-23 08:23:00 Test Item Value Reference Range Interpretation Comments Platelet (test code = Platelet) 309 133-450 [facility] CenterKzsdrfjDYGXXJERSW3992-63-04 08:23:00 Test Item Value Reference Range Interpretation Comments RDW (test code = RDW) 17.4 11.5-14.5 [facility] CenterPhoaeeyIWQTEHVXDD5741-04-36 08:23:00 Test Item Value Reference Range Interpretation Comments MPV (test code = MPV) 7.8 7.4-10.4 [facility] CenterFpokvdyPEOPUDACYU8413-98-28 08:23:00 Test Item Value Reference Range Interpretation Comments RBC (test code = RBC) 4.22 4.20-5.40 [facility] CenterLkftqvrOWYMLKLTZZ5339-52-22 08:23:00 Test Item Value Reference Range Interpretation Comments WBC (test code = WBC) 9.6 3.7-10.4 [facility] CenterCsnbjiyAYLGXLCOLB1037-10-55 08:23:00 Test Item Value Reference Range Interpretation Comments Eosinophils # (test code 0.1 See_Comment [A utomated message] The = Eosinophils #) system whic h generated this result tra nsmitted reference range : <=0.5. The reference r alee was not used to int erpret this result as normal/abnormal . [facility] CenterGoirmpaYUIARXAKPZ2521-65-64 08:23:00 Test Item Value Reference Range Interpretation Comments Monocytes # (test code 0.7 See_Comment [Aut omated message] The = Monocytes #) system which generated this result tra nsmitted reference range : <=0.8. The reference r alee was not used to int erpret this result as normal/abnormal . [facility] CenterQfupewrDZVJLFKGIA4421-54-04 08:23:00 Test Item Value Reference Range Interpretation Comments Lymphocytes # (test code = Lymphocytes 1.8 1.0-5.5 #) [facility] CenterRtsuarwHBCODGIVUO8715-32-62 08:23:00 Test Item Value Reference Range Interpretation Comments Neutrophils # (test code = Neutrophils 6.8 1.5-8.1 #) [facility] CenterTxtebnmCHVJACFYSP6074-16-06 08:23:00 Test Item Value Reference Range Interpretation Comments Basophils # (test code 0.1 See_Comment [Aut omated message] The = Basophils #) system which generated this result tra nsmitted reference range : <=0.2. The reference r alee was not used to int erpret this result as normal/abnormal . [facility] CenterYozrpddVDBTVMUQQP3011-94-39 08:23:00 Test Item Value Reference Range Interpretation Comments Microcyte (test code = 2+ *ABN*(07/30/18 Microcyte) 3:23 AM) [facility] CenterTwsynjyPDEGZDKHWR7220-37-40 08:23:00 Test Item Value Reference Range Interpretation Comments Monocytes (test code = Monocytes) 7.3 2.0-12.0 [facility] CenterHkjnhxyZMALESQJTA8276-31-53 08:23:00 Test Item Value Reference Range Interpretation Comments Lymphocytes (test code = Lymphocytes) 18.8 20.0-40.0 [facility]CswppyeEPCGBUDOAE2009-19-36 08:23:00 Test Item Value Reference Range Interpretation Comments Segs (test code = Segs) 71.8 45.0-75.0 [facility] CenterDkblggeAZWMUQVKNA1287-51-24 08:23:00 Test Item Value Reference Range Interpretation Comments Basophils (test code = 0.8 See_Comment [Aut omated message] The Basophils) system which ge nerated this result tra nsmitted reference range : <=1.0. The reference r alee was not used to int erpret this result as normal/abnormal . [facility] CenterBeykkkdRFOIZBEDNS7645-45-63 08:23:00 Test Item Value Reference Range Interpretation Comments Eosinophils (test code = 1.3 See_Comment [A utomated message] The Eosinophils) system which ge nerated this result tra nsmitted reference range : <=4.0. The reference r alee was not used to int erpret this result as normal/abnormal . [facility] HospitalGlgpygaXVQXSMKEYP3085-07-20 08:23:00 Test Item Value Reference Range Interpretation Comments Retic Auto (test code = Retic Auto) 1.7 0.5-1.5 [facility] HospitalTfdgproKTJDKL4317-87-48 08:23:00 Test Item Value Reference Range Interpretation Comments VLDL (test code = VLDL) 10 1 [facility] HospitalJbbxvazSODNEM6799-25-90 08:23:00 Test Item Value Reference Range Interpretation Comments CHD Risk (test code = CHD Risk) 3.94 1 3.90-5.80 [facility] HospitalUhhfcgpPOOHAQ7422-78-01 08:23:00 Test Item Value Reference Range Interpretation Comments HDL (test code = HDL) 50 [facility] HospitalQbxnzgoADQQBR7879-38-33 08:23:00 Test Item Value Reference Range Interpretation Comments Trig (test code = Trig) 50 [facility] HospitalNstmzvyWXMJYC5029-86-31 08:23:00 Test Item Value Reference Range Interpretation Comments Chol (test code = Chol) 197 [facility] HospitalRqjjkbnDDTHBX0383-90-70 08:23:00 Test Item Value Reference Range Interpretation Comments LDL (Calculated) (test code = LDL 137 (Calculated)) [facility] XIWCCTFKR0137-45-09 08:23:00 Test Item Value Reference Range Interpretation Comments Hgb A1C (test code = Hgb A1C) 6.0 [facility] [id number] 06:20:00 Test Item Value Reference Range Interpretation Comments Occult Bld Stl (test Negative (07/30/18 1:20 code = Occult Bld Stl) AM) [facility] [id number] 06:20:00 Test Item Value Reference Range Interpretation Comments Occult Bld Stl (test Negative (07/30/18 1:20 code = Occult Bld Stl) AM) [facility] [id number] 06:20:00 Test Item Value Reference Range Interpretation Comments Occult Bld Stl (test Negative (07/30/18 1:20 code = Occult Bld Stl) AM) [facility] [id number] 06:20:00 Test Item Value Reference Range Interpretation Comments Occult Bld Stl (test Negative (07/30/18 1:20 code = Occult Bld Stl) AM) [facility] [id number] 06:20:00 Test Item Value Reference Range Interpretation Comments Occult Bld Stl (test Negative (07/30/18 1:20 code = Occult Bld Stl) AM) [facility] [id number] 06:20:00 Test Item Value Reference Range Interpretation Comments Occult Bld Stl (test Negative (07/30/18 1:20 code = Occult Bld Stl) AM) [facility] [id number] 06:20:00 Test Item Value Reference Range Interpretation Comments Occult Bld Stl (test Negative (07/30/18 1:20 code = Occult Bld Stl) AM) [facility] [id number] 06:20:00 Test Item Value Reference Range Interpretation Comments Occult Bld Stl (test Negative (07/30/18 1:20 code = Occult Bld Stl) AM) [facility]annCARDIAC CWDMCOJ6129-02-72 05:10:00 Test Item Value Reference Range Interpretation Comments Troponin-I (test code no gt See_Comment [Auto mated message] The = Troponin-I) system which g enerated this result transmit kenroy reference range : <=0.40. The reference r alee was not used to interpr et this result as elton l/abnormal. [facility]2019-05-11 05:10:00 Test Item Value Reference Range Interpretation Comments Lactic Acid Lvl (test code = Lactic 1.0 0.5-2.2 Acid Lvl) [facility]2019-05-11 05:10:00 Test Item Value Reference Range Interpretation Comments Phosphorus (test code = Phosphorus) 3.7 2.5-4.5 [facility]2019-05-11 05:10:00 Test Item Value Reference Range Interpretation Comments Magnesium Lvl (test code = Magnesium 1.8 1.8-2.4 Lvl) [facility]2019-05-11 05:10:00 Test Item Value Reference Range Interpretation Comments Troponin-I (test code no gt See_Comment [Auto mated message] The = Troponin-I) system which g enerated this result transmit kenroy reference range : <=0.40. The reference r alee was not used to interpr et this result as elton l/abnormal. [facility]2019-05-11 05:10:00 Test Item Value Reference Range Interpretation Comments Lactic Acid Lvl (test code = Lactic 1.0 0.5-2.2 Acid Lvl) [facility]2019-05-11 05:10:00 Test Item Value Reference Range Interpretation Comments Phosphorus (test code = Phosphorus) 3.7 2.5-4.5 [facility]2019-05-11 05:10:00 Test Item Value Reference Range Interpretation Comments Magnesium Lvl (test code = Magnesium 1.8 1.8-2.4 Lvl) [facility]2019-05-11 05:10:00 Test Item Value Reference Range Interpretation Comments Troponin-I (test code no gt See_Comment [Auto mated message] The = Troponin-I) system which g enerated this result transmit kenroy reference range : <=0.40. The reference r alee was not used to interpr et this result as elton l/abnormal. [facility]2019-05-11 05:10:00 Test Item Value Reference Range Interpretation Comments Lactic Acid Lvl (test code = Lactic 1.0 0.5-2.2 Acid Lvl) [facility]2019-05-11 05:10:00 Test Item Value Reference Range Interpretation Comments Phosphorus (test code = Phosphorus) 3.7 2.5-4.5 [facility] [employer] [id number] 05:10:00 Test Item Value Reference Range Interpretation Comments Magnesium Lvl (test code = Magnesium 1.8 1.8-2.4 Lvl) [facility] [id number] 05:10:00 Test Item Value Reference Range Interpretation Comments Troponin-I (test code no gt See_Comment [Auto mated message] The = Troponin-I) system which g enerated this result transmit kenroy reference range : <=0.40. The reference r alee was not used to interpr et this result as elton l/abnormal. [facility] [employer] [id number] 05:10:00 Test Item Value Reference Range Interpretation Comments Lactic Acid Lvl (test code = Lactic 1.0 0.5-2.2 Acid Lvl) [facility] [employer] [id number] 05:10:00 Test Item Value Reference Range Interpretation Comments Phosphorus (test code = Phosphorus) 3.7 2.5-4.5 [facility] [employer] [id number] 05:10:00 Test Item Value Reference Range Interpretation Comments Magnesium Lvl (test code = Magnesium 1.8 1.8-2.4 Lvl) [facility]Spo[facility] 05:10:00 Test Item Value Reference Range Interpretation Comments Troponin-I (test code no gt See_Comment [Auto mated message] The = Troponin-I) system which g enerated this result transmit kenroy reference range : <=0.40. The reference r alee was not used to interpr et this result as elton l/abnormal. [facility] [employer] [id number] 05:10:00 Test Item Value Reference Range Interpretation Comments Lactic Acid Lvl (test code = Lactic 1.0 0.5-2.2 Acid Lvl) [facility] [employer]2019-05-11 05:10:00 Test Item Value Reference Range Interpretation Comments Phosphorus (test code = Phosphorus) 3.7 2.5-4.5 [facility] [id number] 05:10:00 Test Item Value Reference Range Interpretation Comments Magnesium Lvl (test code = Magnesium 1.8 1.8-2.4 Lvl) [facility]2019-05-11 05:10:00 Test Item Value Reference Range Interpretation Comments Troponin-I (test code no gt See_Comment [Auto mated message] The = Troponin-I) system which g enerated this result transmit kenroy reference range : <=0.40. The reference r alee was not used to interpr et this result as elton l/abnormal. [facility]2019-05-11 05:10:00 Test Item Value Reference Range Interpretation Comments Lactic Acid Lvl (test code = Lactic 1.0 0.5-2.2 Acid Lvl) [facility]2019-05-11 05:10:00 Test Item Value Reference Range Interpretation Comments Phosphorus (test code = Phosphorus) 3.7 2.5-4.5 [facility]2019-05-11 05:10:00 Test Item Value Reference Range Interpretation Comments Magnesium Lvl (test code = Magnesium 1.8 1.8-2.4 Lvl) [facility]2019-05-11 05:10:00 Test Item Value Reference Range Interpretation Comments Troponin-I (test code no gt See_Comment [Auto mated message] The = Troponin-I) system which g enerated this result transmit kenroy reference range : <=0.40. The reference r alee was not used to interpr et this result as elton l/abnormal. [facility]2019-05-11 05:10:00 Test Item Value Reference Range Interpretation Comments Lactic Acid Lvl (test code = Lactic 1.0 0.5-2.2 Acid Lvl) [facility]2019-05-11 05:10:00 Test Item Value Reference Range Interpretation Comments Phosphorus (test code = Phosphorus) 3.7 2.5-4.5 [facility]2019-05-11 05:10:00 Test Item Value Reference Range Interpretation Comments Magnesium Lvl (test code = Magnesium 1.8 1.8-2.4 Lvl) [facility] [id number] 05:10:00 Test Item Value Reference Range Interpretation Comments Troponin-I (test code no gt See_Comment [Auto mated message] The = Troponin-I) system which g enerated this result transmit kenroy reference range : <=0.40. The reference r alee was not used to interpr et this result as elton l/abnormal. [facility] [id number] 05:10:00 Test Item Value Reference Range Interpretation Comments Lactic Acid Lvl (test code = Lactic 1.0 0.5-2.2 Acid Lvl) [facility] [id number] 05:10:00 Test Item Value Reference Range Interpretation Comments Phosphorus (test code = Phosphorus) 3.7 2.5-4.5 [facility] [id number] 05:10:00 Test Item Value Reference Range Interpretation Comments Magnesium Lvl (test code = Magnesium 1.8 1.8-2.4 Lvl) [facility] AND [id number] 02:04:00 Test Item Value Reference Range Interpretation Comments UA Color (test code = Yellow *NA*(07/29/18 UA Color) 9:04 PM) [facility] AND [id number] 02:04:00 Test Item Value Reference Range Interpretation Comments UA Turbidity (test code Slight *ABN*(07/29/18 = UA Turbidity) 9:04 PM) [facility] AND [id number] 02:04:00 Test Item Value Reference Range Interpretation Comments UA Nitrite (test code Negative (07/29/18 9:04 = UA Nitrite) PM) [facility] AND [id number] 02:04:00 Test Item Value Reference Range Interpretation Comments UA Leuk Est (test code Small *ABN*(07/29/18 = UA Leuk Est) 9:04 PM) [facility] AND [id number] 02:04:00 Test Item Value Reference Range Interpretation Comments UA Bili (test code = Negative *NA*(07/29/18 UA Bili) 9:04 PM) [facility] AND [id number] 02:04:00 Test Item Value Reference Range Interpretation Comments UA Blood (test code = Negative (07/29/18 9:04 UA Blood) PM) [facility] AND [id number] 02:04:00 Test Item Value Reference Range Interpretation Comments UA Urobilinogen (test code = UA 3.0 0.1-1.0 Urobilinogen) [facility] AND [id number] 02:04:00 Test Item Value Reference Range Interpretation Comments UA Protein (test code = UA Protein) 20 mg/dL [facility] AND [id number] 02:04:00 Test Item Value Reference Range Interpretation Comments UA Glucose (test code = UA Negative mg/dL Glucose) [facility] AND [id number] 02:04:00 Test Item Value Reference Range Interpretation Comments UA Ketones (test code = UA Negative mg/dL Ketones) [facility] AND [id number] 02:04:00 Test Item Value Reference Range Interpretation Comments UA Spec Grav (test code = UA Spec 1.026 1 Grav) [facility] AND [id number] 02:04:00 Test Item Value Reference Range Interpretation Comments UA pH (test code = UA pH) 6.5 1 5.0-8.0 [facility] AND [id number] 02:04:00 Test Item Value Reference Range Interpretation Comments UA Bacteria (test code = UA Occasional /HPF Bacteria) [facility] AND [id number] 02:04:00 Test Item Value Reference Range Interpretation Comments UA Mucus (test code = UA Mucus) Few /LPF [facility] AND [id number] 02:04:00 Test Item Value Reference Range Interpretation Comments UA RBC (test code = 3 See_Comment [Automa kenroy message] The UA RBC) system which ge nerated this result transmit kenroy reference range : <=2. The reference range was not used to interpr et this result as elton l/abnormal. [facility] AND [id number] 02:04:00 Test Item Value Reference Range Interpretation Comments UA Sq Epi (test code = UA Sq Epi) Many /LPF [facility] AND [id number] 02:04:00 Test Item Value Reference Range Interpretation Comments UA WBC (test code = 6 See_Comment [Automa kenroy message] The UA WBC) system which ge nerated this result transmit kenroy reference range : <=5. The reference range was not used to interpr et this result as elton l/abnormal. [facility] AND [id number] 02:04:00 Test Item Value Reference Range Interpretation Comments UA Hyal Cast (test 13 See_Comment [Automat ed message] The code = UA Hyal Cast) system which generated this result transmit kenroy reference range : <=2. The reference range was not used to interpr et this result as elton l/abnormal. [facility] AND [id number] 02:04:00 Test Item Value Reference Range Interpretation Comments UA Color (test code = Yellow *NA*(07/29/18 UA Color) 9:04 PM) [facility] AND [id number] 02:04:00 Test Item Value Reference Range Interpretation Comments UA Turbidity (test code Slight *ABN*(07/29/18 = UA Turbidity) 9:04 PM) [facility] AND [id number] 02:04:00 Test Item Value Reference Range Interpretation Comments UA Nitrite (test code Negative (07/29/18 9:04 = UA Nitrite) PM) [facility] AND [id number] 02:04:00 Test Item Value Reference Range Interpretation Comments UA Leuk Est (test code Small *ABN*(07/29/18 = UA Leuk Est) 9:04 PM) [facility] AND [id number] 02:04:00 Test Item Value Reference Range Interpretation Comments UA Bili (test code = Negative *NA*(07/29/18 UA Bili) 9:04 PM) [facility] AND [id number] 02:04:00 Test Item Value Reference Range Interpretation Comments UA Blood (test code = Negative (07/29/18 9:04 UA Blood) PM) [facility] AND [id number] 02:04:00 Test Item Value Reference Range Interpretation Comments UA Urobilinogen (test code = UA 3.0 0.1-1.0 Urobilinogen) [facility] AND [id number] 02:04:00 Test Item Value Reference Range Interpretation Comments UA Protein (test code = UA Protein) 20 mg/dL [facility] AND [id number] 02:04:00 Test Item Value Reference Range Interpretation Comments UA Glucose (test code = UA Negative mg/dL Glucose) [facility] AND [id number] 02:04:00 Test Item Value Reference Range Interpretation Comments UA Ketones (test code = UA Negative mg/dL Ketones) [facility] AND [id number] 02:04:00 Test Item Value Reference Range Interpretation Comments UA Spec Grav (test code = UA Spec 1.026 1 Grav) [facility] AND [id number] 02:04:00 Test Item Value Reference Range Interpretation Comments UA pH (test code = UA pH) 6.5 1 5.0-8.0 [facility] AND [id number] 02:04:00 Test Item Value Reference Range Interpretation Comments UA Bacteria (test code = UA Occasional /HPF Bacteria) [facility] AND [id number] 02:04:00 Test Item Value Reference Range Interpretation Comments UA Mucus (test code = UA Mucus) Few /LPF [facility] AND [id number] 02:04:00 Test Item Value Reference Range Interpretation Comments UA RBC (test code = 3 See_Comment [Automa kenroy message] The UA RBC) system which ge nerated this result transmit kenroy reference range : <=2. The reference range was not used to interpr et this result as elton l/abnormal. [facility] AND [id number] 02:04:00 Test Item Value Reference Range Interpretation Comments UA Sq Epi (test code = UA Sq Epi) Many /LPF [facility] AND [id number] 02:04:00 Test Item Value Reference Range Interpretation Comments UA WBC (test code = 6 See_Comment [Automa kenroy message] The UA WBC) system which ge nerated this result transmit kenroy reference range : <=5. The reference range was not used to interpr et this result as elton l/abnormal. [facility] AND [id number] 02:04:00 Test Item Value Reference Range Interpretation Comments UA Hyal Cast (test 13 See_Comment [Automat ed message] The code = UA Hyal Cast) system which generated this result transmit kenroy reference range : <=2. The reference range was not used to interpr et this result as elton l/abnormal. [facility] AND [id number] 02:04:00 Test Item Value Reference Range Interpretation Comments UA Color (test code = Yellow *NA*(07/29/18 UA Color) 9:04 PM) [facility] AND [id number] 02:04:00 Test Item Value Reference Range Interpretation Comments UA Turbidity (test code Slight *ABN*(07/29/18 = UA Turbidity) 9:04 PM) [facility] AND [id number] 02:04:00 Test Item Value Reference Range Interpretation Comments UA Nitrite (test code Negative (07/29/18 9:04 = UA Nitrite) PM) [facility] AND [id number] 02:04:00 Test Item Value Reference Range Interpretation Comments UA Leuk Est (test code Small *ABN*(07/29/18 = UA Leuk Est) 9:04 PM) [facility] AND [id number] 02:04:00 Test Item Value Reference Range Interpretation Comments UA Bili (test code = Negative *NA*(07/29/18 UA Bili) 9:04 PM) [facility] AND [id number] 02:04:00 Test Item Value Reference Range Interpretation Comments UA Blood (test code = Negative (07/29/18 9:04 UA Blood) PM) [facility] AND [id number] 02:04:00 Test Item Value Reference Range Interpretation Comments UA Urobilinogen (test code = UA 3.0 0.1-1.0 Urobilinogen) [facility] AND [id number] 02:04:00 Test Item Value Reference Range Interpretation Comments UA Protein (test code = UA Protein) 20 mg/dL [facility] AND [id number] 02:04:00 Test Item Value Reference Range Interpretation Comments UA Glucose (test code = UA Negative mg/dL Glucose) [facility] AND [id number] 02:04:00 Test Item Value Reference Range Interpretation Comments UA Ketones (test code = UA Negative mg/dL Ketones) [facility] AND [id number] 02:04:00 Test Item Value Reference Range Interpretation Comments UA Spec Grav (test code = UA Spec 1.026 1 Grav) [facility] AND [id number] 02:04:00 Test Item Value Reference Range Interpretation Comments UA pH (test code = UA pH) 6.5 1 5.0-8.0 [facility] AND [id number] 02:04:00 Test Item Value Reference Range Interpretation Comments UA Bacteria (test code = UA Occasional /HPF Bacteria) [facility] AND [id number] 02:04:00 Test Item Value Reference Range Interpretation Comments UA Mucus (test code = UA Mucus) Few /LPF [facility] AND [id number] 02:04:00 Test Item Value Reference Range Interpretation Comments UA RBC (test code = 3 See_Comment [Automa kenroy message] The UA RBC) system which ge nerated this result transmit kenroy reference range : <=2. The reference range was not used to interpr et this result as elton l/abnormal. [facility] AND [id number] 02:04:00 Test Item Value Reference Range Interpretation Comments UA Sq Epi (test code = UA Sq Epi) Many /LPF [facility] AND [id number] 02:04:00 Test Item Value Reference Range Interpretation Comments UA WBC (test code = 6 See_Comment [Automa kenroy message] The UA WBC) system which ge nerated this result transmit kenroy reference range : <=5. The reference range was not used to interpr et this result as elton l/abnormal. [facility] AND [id number] 02:04:00 Test Item Value Reference Range Interpretation Comments UA Hyal Cast (test 13 See_Comment [Automat ed message] The code = UA Hyal Cast) system which generated this result transmit kenroy reference range : <=2. The reference range was not used to interpr et this result as elton l/abnormal. [facility] AND [id number] 02:04:00 Test Item Value Reference Range Interpretation Comments UA Color (test code = Yellow *NA*(07/29/18 UA Color) 9:04 PM) [facility] AND [id number] 02:04:00 Test Item Value Reference Range Interpretation Comments UA Turbidity (test code Slight *ABN*(07/29/18 = UA Turbidity) 9:04 PM) [facility] AND [id number] 02:04:00 Test Item Value Reference Range Interpretation Comments UA Nitrite (test code Negative (07/29/18 9:04 = UA Nitrite) PM) [facility] AND [id number] 02:04:00 Test Item Value Reference Range Interpretation Comments UA Leuk Est (test code Small *ABN*(07/29/18 = UA Leuk Est) 9:04 PM) [facility] AND [id number] 02:04:00 Test Item Value Reference Range Interpretation Comments UA Bili (test code = Negative *NA*(07/29/18 UA Bili) 9:04 PM) [facility] AND [id number] 02:04:00 Test Item Value Reference Range Interpretation Comments UA Blood (test code = Negative (07/29/18 9:04 UA Blood) PM) [facility] AND [id number] 02:04:00 Test Item Value Reference Range Interpretation Comments UA Urobilinogen (test code = UA 3.0 0.1-1.0 Urobilinogen) [facility] AND [id number] 02:04:00 Test Item Value Reference Range Interpretation Comments UA Protein (test code = UA Protein) 20 mg/dL [facility] AND [id number] 02:04:00 Test Item Value Reference Range Interpretation Comments UA Glucose (test code = UA Negative mg/dL Glucose) [facility] AND [id number] 02:04:00 Test Item Value Reference Range Interpretation Comments UA Ketones (test code = UA Negative mg/dL Ketones) [facility] AND [id number] 02:04:00 Test Item Value Reference Range Interpretation Comments UA Spec Grav (test code = UA Spec 1.026 1 Grav) [facility] AND [id number] 02:04:00 Test Item Value Reference Range Interpretation Comments UA pH (test code = UA pH) 6.5 1 5.0-8.0 [facility] AND [id number] 02:04:00 Test Item Value Reference Range Interpretation Comments UA Bacteria (test code = UA Occasional /HPF Bacteria) [facility] AND [id number] 02:04:00 Test Item Value Reference Range Interpretation Comments UA Mucus (test code = UA Mucus) Few /LPF [facility] AND [id number] 02:04:00 Test Item Value Reference Range Interpretation Comments UA RBC (test code = 3 See_Comment [Automa kenroy message] The UA RBC) system which ge nerated this result transmit kenroy reference range : <=2. The reference range was not used to interpr et this result as elton l/abnormal. [facility] AND [id number] 02:04:00 Test Item Value Reference Range Interpretation Comments UA Sq Epi (test code = UA Sq Epi) Many /LPF [facility] AND [id number] 02:04:00 Test Item Value Reference Range Interpretation Comments UA WBC (test code = 6 See_Comment [Automa kenroy message] The UA WBC) system which ge nerated this result transmit kenroy reference range : <=5. The reference range was not used to interpr et this result as elton l/abnormal. [facility] AND [id number] 02:04:00 Test Item Value Reference Range Interpretation Comments UA Hyal Cast (test 13 See_Comment [Automat ed message] The code = UA Hyal Cast) system which generated this result transmit kenroy reference range : <=2. The reference range was not used to interpr et this result as elton l/abnormal. [facility] AND [id number] 02:04:00 Test Item Value Reference Range Interpretation Comments UA Color (test code = Yellow *NA*(07/29/18 UA Color) 9:04 PM) [facility] AND [id number] 02:04:00 Test Item Value Reference Range Interpretation Comments UA Turbidity (test code Slight *ABN*(07/29/18 = UA Turbidity) 9:04 PM) [facility] AND [id number] 02:04:00 Test Item Value Reference Range Interpretation Comments UA Nitrite (test code Negative (07/29/18 9:04 = UA Nitrite) PM) [facility] AND [id number] 02:04:00 Test Item Value Reference Range Interpretation Comments UA Leuk Est (test code Small *ABN*(07/29/18 = UA Leuk Est) 9:04 PM) [facility] AND [id number] 02:04:00 Test Item Value Reference Range Interpretation Comments UA Bili (test code = Negative *NA*(07/29/18 UA Bili) 9:04 PM) [facility] AND [id number] 02:04:00 Test Item Value Reference Range Interpretation Comments UA Blood (test code = Negative (07/29/18 9:04 UA Blood) PM) [facility] AND [id number] 02:04:00 Test Item Value Reference Range Interpretation Comments UA Urobilinogen (test code = UA 3.0 0.1-1.0 Urobilinogen) [facility] AND [id number] 02:04:00 Test Item Value Reference Range Interpretation Comments UA Protein (test code = UA Protein) 20 mg/dL [facility] AND [id number] 02:04:00 Test Item Value Reference Range Interpretation Comments UA Glucose (test code = UA Negative mg/dL Glucose) [facility] AND [id number] 02:04:00 Test Item Value Reference Range Interpretation Comments UA Ketones (test code = UA Negative mg/dL Ketones) [facility] AND [id number] 02:04:00 Test Item Value Reference Range Interpretation Comments UA Spec Grav (test code = UA Spec 1.026 1 Grav) [facility] AND [id number] 02:04:00 Test Item Value Reference Range Interpretation Comments UA pH (test code = UA pH) 6.5 1 5.0-8.0 [facility] AND [id number] 02:04:00 Test Item Value Reference Range Interpretation Comments UA Bacteria (test code = UA Occasional /HPF Bacteria) [facility] AND [id number] 02:04:00 Test Item Value Reference Range Interpretation Comments UA Mucus (test code = UA Mucus) Few /LPF [facility] AND [id number] 02:04:00 Test Item Value Reference Range Interpretation Comments UA RBC (test code = 3 See_Comment [Automa kenroy message] The UA RBC) system which ge nerated this result transmit kenroy reference range : <=2. The reference range was not used to interpr et this result as elton l/abnormal. [facility] AND [id number] 02:04:00 Test Item Value Reference Range Interpretation Comments UA Sq Epi (test code = UA Sq Epi) Many /LPF [facility] AND [id number] 02:04:00 Test Item Value Reference Range Interpretation Comments UA WBC (test code = 6 See_Comment [Automa kenroy message] The UA WBC) system which ge nerated this result transmit kenroy reference range : <=5. The reference range was not used to interpr et this result as elton l/abnormal. [facility] AND [id number] 02:04:00 Test Item Value Reference Range Interpretation Comments UA Hyal Cast (test 13 See_Comment [Automat ed message] The code = UA Hyal Cast) system which generated this result transmit kenroy reference range : <=2. The reference range was not used to interpr et this result as elton l/abnormal. [facility] AND [id number] 02:04:00 Test Item Value Reference Range Interpretation Comments UA Color (test code = Yellow *NA*(07/29/18 UA Color) 9:04 PM) [facility] AND [id number] 02:04:00 Test Item Value Reference Range Interpretation Comments UA Turbidity (test code Slight *ABN*(07/29/18 = UA Turbidity) 9:04 PM) [facility] AND [id number] 02:04:00 Test Item Value Reference Range Interpretation Comments UA Nitrite (test code Negative (07/29/18 9:04 = UA Nitrite) PM) [facility] AND [id number] 02:04:00 Test Item Value Reference Range Interpretation Comments UA Leuk Est (test code Small *ABN*(07/29/18 = UA Leuk Est) 9:04 PM) [facility] AND [id number] 02:04:00 Test Item Value Reference Range Interpretation Comments UA Bili (test code = Negative *NA*(07/29/18 UA Bili) 9:04 PM) [facility] AND [id number] 02:04:00 Test Item Value Reference Range Interpretation Comments UA Blood (test code = Negative (07/29/18 9:04 UA Blood) PM) [facility] AND [id number] 02:04:00 Test Item Value Reference Range Interpretation Comments UA Urobilinogen (test code = UA 3.0 0.1-1.0 Urobilinogen) [facility] AND [id number] 02:04:00 Test Item Value Reference Range Interpretation Comments UA Protein (test code = UA Protein) 20 mg/dL [facility] AND [id number] 02:04:00 Test Item Value Reference Range Interpretation Comments UA Glucose (test code = UA Negative mg/dL Glucose) [facility] AND [id number] 02:04:00 Test Item Value Reference Range Interpretation Comments UA Ketones (test code = UA Negative mg/dL Ketones) [facility] AND [id number] 02:04:00 Test Item Value Reference Range Interpretation Comments UA Spec Grav (test code = UA Spec 1.026 1 Grav) [facility] [id number] 02:04:00 Test Item Value Reference Range Interpretation Comments UA pH (test code = UA pH) 6.5 1 5.0-8.0 [facility] AND [id number] 02:04:00 Test Item Value Reference Range Interpretation Comments UA Bacteria (test code = UA Occasional /HPF Bacteria) [facility] [id number] 02:04:00 Test Item Value Reference Range Interpretation Comments UA Mucus (test code = UA Mucus) Few /LPF [facility] AND [id number] 02:04:00 Test Item Value Reference Range Interpretation Comments UA RBC (test code = 3 See_Comment [Automa kenroy message] The UA RBC) system which ge nerated this result transmit kenroy reference range : <=2. The reference range was not used to interpr et this result as elton l/abnormal. [facility] AND [id number] 02:04:00 Test Item Value Reference Range Interpretation Comments UA Sq Epi (test code = UA Sq Epi) Many /LPF [facility] AND [id number] 02:04:00 Test Item Value Reference Range Interpretation Comments UA WBC (test code = 6 See_Comment [Automa kenroy message] The UA WBC) system which ge nerated this result transmit kenroy reference range : <=5. The reference range was not used to interpr et this result as elton l/abnormal. [facility] AND [id number] 02:04:00 Test Item Value Reference Range Interpretation Comments UA Hyal Cast (test 13 See_Comment [Automat ed message] The code = UA Hyal Cast) system which generated this result transmit kenroy reference range : <=2. The reference range was not used to interpr et this result as elton l/abnormal. [facility] AND [id number] 02:04:00 Test Item Value Reference Range Interpretation Comments UA Color (test code = Yellow *NA*(07/29/18 UA Color) 9:04 PM) [facility] AND [id number] 02:04:00 Test Item Value Reference Range Interpretation Comments UA Turbidity (test code Slight *ABN*(07/29/18 = UA Turbidity) 9:04 PM) [facility] AND [id number] 02:04:00 Test Item Value Reference Range Interpretation Comments UA Nitrite (test code Negative (07/29/18 9:04 = UA Nitrite) PM) [facility] AND [id number] 02:04:00 Test Item Value Reference Range Interpretation Comments UA Leuk Est (test code Small *ABN*(07/29/18 = UA Leuk Est) 9:04 PM) [facility] AND [id number] 02:04:00 Test Item Value Reference Range Interpretation Comments UA Bili (test code = Negative *NA*(07/29/18 UA Bili) 9:04 PM) [facility] AND [id number] 02:04:00 Test Item Value Reference Range Interpretation Comments UA Blood (test code = Negative (07/29/18 9:04 UA Blood) PM) [facility] AND [id number] 02:04:00 Test Item Value Reference Range Interpretation Comments UA Urobilinogen (test code = UA 3.0 0.1-1.0 Urobilinogen) [facility] AND [id number] 02:04:00 Test Item Value Reference Range Interpretation Comments UA Protein (test code = UA Protein) 20 mg/dL [facility] AND [id number] 02:04:00 Test Item Value Reference Range Interpretation Comments UA Glucose (test code = UA Negative mg/dL Glucose) [facility] AND [id number] 02:04:00 Test Item Value Reference Range Interpretation Comments UA Ketones (test code = UA Negative mg/dL Ketones) [facility] AND [id number] 02:04:00 Test Item Value Reference Range Interpretation Comments UA Spec Grav (test code = UA Spec 1.026 1 Grav) [facility] AND [id number] 02:04:00 Test Item Value Reference Range Interpretation Comments UA pH (test code = UA pH) 6.5 1 5.0-8.0 [facility] AND [id number] 02:04:00 Test Item Value Reference Range Interpretation Comments UA Bacteria (test code = UA Occasional /HPF Bacteria) [facility] AND [id number] 02:04:00 Test Item Value Reference Range Interpretation Comments UA Mucus (test code = UA Mucus) Few /LPF [facility] AND [id number] 02:04:00 Test Item Value Reference Range Interpretation Comments UA RBC (test code = 3 See_Comment [Automa kenroy message] The UA RBC) system which ge nerated this result transmit kenroy reference range : <=2. The reference range was not used to interpr et this result as elton l/abnormal. [facility] AND [id number] 02:04:00 Test Item Value Reference Range Interpretation Comments UA Sq Epi (test code = UA Sq Epi) Many /LPF [facility] AND [id number] 02:04:00 Test Item Value Reference Range Interpretation Comments UA WBC (test code = 6 See_Comment [Automa kenroy message] The UA WBC) system which ge nerated this result transmit kenroy reference range : <=5. The reference range was not used to interpr et this result as elton l/abnormal. [facility] AND [id number] 02:04:00 Test Item Value Reference Range Interpretation Comments UA Hyal Cast (test 13 See_Comment [Automat ed message] The code = UA Hyal Cast) system which generated this result transmit kenroy reference range : <=2. The reference range was not used to interpr et this result as elton l/abnormal. [facility] AND [id number] 02:04:00 Test Item Value Reference Range Interpretation Comments UA Nitrite (test code Negative (07/29/18 9:04 = UA Nitrite) PM) [facility] AND [id number] 02:04:00 Test Item Value Reference Range Interpretation Comments UA Leuk Est (test code Small *ABN*(07/29/18 = UA Leuk Est) 9:04 PM) [facility] AND [id number] 02:04:00 Test Item Value Reference Range Interpretation Comments UA Bili (test code = Negative *NA*(07/29/18 UA Bili) 9:04 PM) [facility] AND [id number] 02:04:00 Test Item Value Reference Range Interpretation Comments UA Blood (test code = Negative (07/29/18 9:04 UA Blood) PM) [facility] AND [id number] 02:04:00 Test Item Value Reference Range Interpretation Comments UA Urobilinogen (test code = UA 3.0 0.1-1.0 Urobilinogen) [facility] AND [id number] 02:04:00 Test Item Value Reference Range Interpretation Comments UA Protein (test code = UA Protein) 20 mg/dL [facility] AND [id number] 02:04:00 Test Item Value Reference Range Interpretation Comments UA Glucose (test code = UA Negative mg/dL Glucose) [facility] AND [id number] 02:04:00 Test Item Value Reference Range Interpretation Comments UA Ketones (test code = UA Negative mg/dL Ketones) [facility] AND [id number] 02:04:00 Test Item Value Reference Range Interpretation Comments UA Spec Grav (test code = UA Spec 1.026 1 Grav) [facility] AND [id number] 02:04:00 Test Item Value Reference Range Interpretation Comments UA pH (test code = UA pH) 6.5 1 5.0-8.0 [facility] AND [id number] 02:04:00 Test Item Value Reference Range Interpretation Comments UA Bacteria (test code = UA Occasional /HPF Bacteria) [facility] AND [id number] 02:04:00 Test Item Value Reference Range Interpretation Comments UA Mucus (test code = UA Mucus) Few /LPF [facility] AND [id number] 02:04:00 Test Item Value Reference Range Interpretation Comments UA RBC (test code = 3 See_Comment [Automa kenroy message] The UA RBC) system which ge nerated this result transmit kenroy reference range : <=2. The reference range was not used to interpr et this result as elton l/abnormal. [facility] AND [id number] 02:04:00 Test Item Value Reference Range Interpretation Comments UA Sq Epi (test code = UA Sq Epi) Many /LPF [facility] AND [id number] 02:04:00 Test Item Value Reference Range Interpretation Comments UA WBC (test code = 6 See_Comment [Automa kenroy message] The UA WBC) system which ge nerated this result transmit kenroy reference range : <=5. The reference range was not used to interpr et this result as elton l/abnormal. [facility] AND [id number] 02:04:00 Test Item Value Reference Range Interpretation Comments UA Hyal Cast (test 13 See_Comment [Automat ed message] The code = UA Hyal Cast) system which generated this result transmit kenroy reference range : <=2. The reference range was not used to interpr et this result as elton l/abnormal. [facility] AND [id number] 02:04:00 Test Item Value Reference Range Interpretation Comments UA Color (test code = Yellow *NA*(07/29/18 UA Color) 9:04 PM) [facility] AND [id number] 02:04:00 Test Item Value Reference Range Interpretation Comments UA Turbidity (test code Slight *ABN*(07/29/18 = UA Turbidity) 9:04 PM) [place] [id number] 01:34:00 Test Item Value Reference Range Interpretation Comments Grp A Strep Scr (test Positive 3*ABN*(07/29/18 code = Grp A Strep 8:34 PM) Scr) [place] [id number] 01:34:00 Test Item Value Reference Range Interpretation Comments Grp A Strep Scr (test Positive 3*ABN*(07/29/18 code = Grp A Strep 8:34 PM) [facility]r) [id number]:00 Test Item Value Reference Range Interpretation Comments Grp A Strep Scr (test Positive 3*ABN*(07/29/18 code = Grp A Strep 8:34 PM) Scr) [place] [id number] 01:34:00 Test Item Value Reference Range Interpretation Comments Grp A Strep Scr (test Positive 3*ABN*(07/29/18 code = Grp A Strep 8:34 PM) Scr) [place] [id number] 01:34:00 Test Item Value Reference Range Interpretation Comments Grp A Strep Scr (test Positive 3*ABN*(07/29/18 code = Grp A Strep 8:34 PM) Scr) [place] [id number] 01:34:00 Test Item Value Reference Range Interpretation Comments Grp A Strep Scr (test Positive 3*ABN*(07/29/18 code = Grp A Strep 8:34 PM) Scr) [place] [id number] 01:34:00 Test Item Value Reference Range Interpretation Comments Grp A Strep Scr (test Positive 3*ABN*(07/29/18 code = Grp A Strep 8:34 PM) Scr) [place] [id number] 01:34:00 Test Item Value Reference Range Interpretation Comments Grp A Strep Scr (test Positive 3*ABN*(07/29/18 code = Grp A Strep 8:34 PM) Scr) [facility] [id number] 01:30:00 Test Item Value Reference Range Interpretation Comments BNP (test code = BNP) 44 [facility] [id number] 01:30:00 Test Item Value Reference Range Interpretation Comments Total CK (test code = Total CK) 34 12-191 [facility] [id number] 01:30:00 Test Item Value Reference Range Interpretation Comments Troponin-I (test code no gt See_Comment [Auto mated message] The = Troponin-I) system which g enerated this result transmit kenroy reference range : <=0.40. The reference r alee was not used to interpr et this result as elton l/abnormal. [facility] [id number] 01:30:00 Test Item Value Reference Range Interpretation Comments Lactic Acid Lvl (test code = Lactic 2.8 0.5-2.2 Acid Lvl) [facility] [id number] 01:30:00 Test Item Value Reference Range Interpretation Comments Lipase Lvl (test code = Lipase Lvl) 131 73-393 [facility] [id number] 01:30:00 Test Item Value Reference Range Interpretation Comments Magnesium Lvl (test code = Magnesium 1.8 1.8-2.4 Lvl) [facility] [id number] 01:30:00 Test Item Value Reference Range Interpretation Comments Globulin (test code = Globulin) 4.5 2.7-4.2 [facility]Busco[facility]o [id number] 01:30:00 Test Item Value Reference Range Interpretation Comments AGAP (test code = AGAP) 12.5 10.0-20.0 [facility] [id number] 01:30:00 Test Item Value Reference Range Interpretation Comments A/G Ratio (test code = A/G Ratio) 0.7 1 0.7-1.6 [facility]2019-05-11 01:30:00 Test Item Value Reference Range Interpretation Comments B/C Ratio (test code = B/C Ratio) 13 1 6-25 [place] 200509-05-11 01:30:00 Test Item Value Reference Range Interpretation Comments eGFR (test code = eGFR) 65 [facility]2019-05-11 01:30:00 Test Item Value Reference Range Interpretation Comments Alk Phos (test code = Alk Phos) 127 39-136 [facility]2019-05-11 01:30:00 Test Item Value Reference Range Interpretation Comments Bili Total (test code = Bili Total) 0.4 0.2-1.3 [facility]2019-05-11 01:30:00 Test Item Value Reference Range Interpretation Comments ALT (test code = ALT) 14 See_Comment [Auto mated message] The system which ge nerated this result transmit kenroy reference range : <=65. The reference range was not used to interpr et this result as elton l/abnormal. [facility]2019-05-11 01:30:00 Test Item Value Reference Range Interpretation Comments AST (test code = AST) 8 See_Comment [Auto mated message] The system which ge nerated this result transmit kenroy reference range : <=37. The reference range was not used to interpr et this result as elton l/abnormal. [facility]2019-05-11 01:30:00 Test Item Value Reference Range Interpretation Comments Albumin Lvl (test code = Albumin Lvl) 3.2 3.5-5.0 [facility]2019-05-11 01:30:00 Test Item Value Reference Range Interpretation Comments Creatinine Lvl (test code = Creatinine 1.09 0.50-1.40 Lvl) [facility]2019-05-11 01:30:00 Test Item Value Reference Range Interpretation Comments Sodium Lvl (test code = Sodium Lvl) 136 135-145 [facility]2019-05-11 01:30:00 Test Item Value Reference Range Interpretation Comments Potassium Lvl (test code = Potassium 3.5 3.5-5.1 Lvl) [place] 200509-05-11 01:30:00 Test Item Value Reference Range Interpretation Comments Chloride Lvl (test code = Chloride Lvl) 100 95-109 [facility]2019-05-11 01:30:00 Test Item Value Reference Range Interpretation Comments Total Protein (test code = Total 7.7 6.4-8.4 Protein) [facility]2019-05-11 01:30:00 Test Item Value Reference Range Interpretation Comments Glucose Lvl (test code = Glucose Lvl) 122 70-99 [facility]2019-05-11 01:30:00 Test Item Value Reference Range Interpretation Comments BUN (test code = BUN) 14 7-22 [facility]2019-05-11 01:30:00 Test Item Value Reference Range Interpretation Comments Calcium Lvl (test code = Calcium Lvl) 9.3 8.5-10.5 [facility]2019-05-11 01:30:00 Test Item Value Reference Range Interpretation Comments CO2 (test code = CO2) 27 24-32 [facility]OfddpqyWIQRKUHYIL1709-81-70 01:30:00 Test Item Value Reference Range Interpretation Comments Eosinophils # (test code 0.1 See_Comment [A utomated message] The = Eosinophils #) system whic h generated this result tra nsmitted reference range : <=0.5. The reference r alee was not used to int erpret this result as normal/abnormal . [facility] CenterJxzlhsvSSFFDCXFMU5498-79-05 01:30:00 Test Item Value Reference Range Interpretation Comments Microcyte (test code = 2+ *ABN*(07/29/18 Microcyte) 8:30 PM) [facility] CenterImcjereMVROSASANH9470-03-67 01:30:00 Test Item Value Reference Range Interpretation Comments Neutrophils # (test code = Neutrophils 9.1 1.5-8.1 #) [facility] CenterJsjhsjdJSEIZLIAWG3674-69-07 01:30:00 Test Item Value Reference Range Interpretation Comments Lymphocytes # (test code = Lymphocytes 1.3 1.0-5.5 #) [facility] CenterHxxmcaxQPPDUNQTJS9431-45-60 01:30:00 Test Item Value Reference Range Interpretation Comments Monocytes # (test code 0.7 See_Comment [Aut omated message] The = Monocytes #) system which generated this result tra nsmitted reference range : <=0.8. The reference r alee was not used to int erpret this result as normal/abnormal . [facility] CenterGkfwwgcJQOPPMWUTI9271-73-60 01:30:00 Test Item Value Reference Range Interpretation Comments Segs (test code = Segs) 81.3 45.0-75.0 [facility] CenterXkinnojVNVXFGANWU1477-69-37 01:30:00 Test Item Value Reference Range Interpretation Comments Lymphocytes (test code = Lymphocytes) 11.3 20.0-40.0 [facility] CenterBvubnsvHXECNMVYBT8119-16-36 01:30:00 Test Item Value Reference Range Interpretation Comments Monocytes (test code = Monocytes) 6.3 2.0-12.0 [facility] CenterRtsqcrzPEUUKWCPFI5706-55-75 01:30:00 Test Item Value Reference Range Interpretation Comments Eosinophils (test code = 0.7 See_Comment [A utomated message] The Eosinophils) system which ge nerated this result tra nsmitted reference range : <=4.0. The reference r alee was not used to int erpret this result as normal/abnormal . [facility] CenterHxtquoyEUBWVHSKWP0132-44-77 01:30:00 Test Item Value Reference Range Interpretation Comments Basophils (test code = 0.4 See_Comment [Aut omated message] The Basophils) system which ge nerated this result tra nsmitted reference range : <=1.0. The reference r alee was not used to int erpret this result as normal/abnormal . [facility] CenterFxlojdgKZSGEQCKPE2162-90-88 01:30:00 Test Item Value Reference Range Interpretation Comments PTT (test code = PTT) 32.2 s 22.9-35.8 [facility] CenterGakefisGJXZGHYUMV0594-91-35 01:30:00 Test Item Value Reference Range Interpretation Comments INR (test code = INR) 1.08 1 0.85-1.17 [facility] CenterGyyyyumMFUZFEAMZF3914-88-42 01:30:00 Test Item Value Reference Range Interpretation Comments PT (test code = PT) 13.8 s 12.0-14.7 [facility] CenterCkxceffLSQWCWKFPP2201-63-40 01:30:00 Test Item Value Reference Range Interpretation Comments Hct (test code = Hct) 30.3 36.0-48.0 [facility] CenterNualpnhIRDPUHZOHR4668-75-06 01:30:00 Test Item Value Reference Range Interpretation Comments Platelet (test code = Platelet) 372 133-450 [facility] HospitalNqqvxmsQCZRQTMZEY4916-07-94 01:30:00 Test Item Value Reference Range Interpretation Comments RDW (test code = RDW) 17.1 11.5-14.5 [facility] HospitalAguijoaNLYIAHNBMT8158-59-45 01:30:00 Test Item Value Reference Range Interpretation Comments MCH (test code = MCH) 22.5 pg 27.0-31.0 [facility]QdnbrvqIQYMKKHDBH6242-05-89 01:30:00 Test Item Value Reference Range Interpretation Comments MCV (test code = MCV) 70.9 80.0-98.0 [facility] HospitalPzpnsmcPOXJBQASCZ1845-93-89 01:30:00 Test Item Value Reference Range Interpretation Comments MPV (test code = MPV) 8.1 7.4-10.4 [facility] HospitalLoqqowkQPATCJCDLU5686-59-68 01:30:00 Test Item Value Reference Range Interpretation Comments MCHC (test code = MCHC) 31.7 32.0-36.0 [facility] HospitalTqtrtxoGAHKPXOYPN7320-11-95 01:30:00 Test Item Value Reference Range Interpretation Comments Hgb (test code = Hgb) 9.6 12.0-16.0 [facility] HospitalVauzpnzDPDWYRLNGN1167-69-61 01:30:00 Test Item Value Reference Range Interpretation Comments WBC (test code = WBC) 11.3 3.7-10.4 [facility] HospitalReayakeQHOWUBLBON3444-18-06 01:30:00 Test Item Value Reference Range Interpretation Comments RBC (test code = RBC) 4.27 4.20-5.40 [facility] HospitalCARLight HarmonicAC BMAHQIM6436-15-71 01:30:00 Test Item Value Reference Range Interpretation Comments BNP (test code = BNP) 44 [facility] HospitalCARDIAC YMBXTEZ9539-65-39 01:30:00 Test Item Value Reference Range Interpretation Comments Total CK (test code = Total CK) 34 12-191 [facility] HospitalFigmentSAINT [facility] IFSENFI0913-81-65 01:30:00 Test Item Value Reference Range Interpretation Comments Troponin-I (test code no gt See_Comment [Auto mated message] The = Troponin-I) system which g enerated this result transmit kenroy reference range : <=0.40. The reference r alee was not used to interpr et this result as elton l/abnormal. [facility]2019-05-11 01:30:00 Test Item Value Reference Range Interpretation Comments Lactic Acid Lvl (test code = Lactic 2.8 0.5-2.2 Acid Lvl) [facility]2019-05-11 01:30:00 Test Item Value Reference Range Interpretation Comments Lipase Lvl (test code = Lipase Lvl) 131 73-393 [place] 200509-05-11 01:30:00 Test Item Value Reference Range Interpretation Comments Magnesium Lvl (test code = Magnesium 1.8 1.8-2.4 Lvl) [place] 200509-05-11 01:30:00 Test Item Value Reference Range Interpretation Comments Globulin (test code = Globulin) 4.5 2.7-4.2 [place] 200509-05-11 01:30:00 Test Item Value Reference Range Interpretation Comments AGAP (test code = AGAP) 12.5 10.0-20.0 [place] 200509-05-11 01:30:00 Test Item Value Reference Range Interpretation Comments A/G Ratio (test code = A/G Ratio) 0.7 1 0.7-1.6 [place] 200509-05-11 01:30:00 Test Item Value Reference Range Interpretation Comments B/C Ratio (test code = B/C Ratio) 13 1 6-25 [place] 200509-05-11 01:30:00 Test Item Value Reference Range Interpretation Comments eGFR (test code = eGFR) 65 [facility]2019-05-11 01:30:00 Test Item Value Reference Range Interpretation Comments Alk Phos (test code = Alk Phos) 127 39-136 [facility]2019-05-11 01:30:00 Test Item Value Reference Range Interpretation Comments Bili Total (test code = Bili Total) 0.4 0.2-1.3 [place] 200509-05-11 01:30:00 Test Item Value Reference Range Interpretation Comments ALT (test code = ALT) 14 See_Comment [Auto mated message] The system which ge nerated this result transmit kenroy reference range : <=65. The reference range was not used to interpr et this result as elton l/abnormal. [facility]2019-05-11 01:30:00 Test Item Value Reference Range Interpretation Comments AST (test code = AST) 8 See_Comment [Auto mated message] The system which ge nerated this result transmit kenroy reference range : <=37. The reference range was not used to interpr et this result as elton l/abnormal. [facility]2019-05-11 01:30:00 Test Item Value Reference Range Interpretation Comments Albumin Lvl (test code = Albumin Lvl) 3.2 3.5-5.0 [facility]2019-05-11 01:30:00 Test Item Value Reference Range Interpretation Comments Creatinine Lvl (test code = Creatinine 1.09 0.50-1.40 Lvl) [facility]2019-05-11 01:30:00 Test Item Value Reference Range Interpretation Comments Sodium Lvl (test code = Sodium Lvl) 136 135-145 [facility]2019-05-11 01:30:00 Test Item Value Reference Range Interpretation Comments Potassium Lvl (test code = Potassium 3.5 3.5-5.1 Lvl) [facility]2019-05-11 01:30:00 Test Item Value Reference Range Interpretation Comments Chloride Lvl (test code = Chloride Lvl) 100 95-109 [facility]2019-05-11 01:30:00 Test Item Value Reference Range Interpretation Comments Total Protein (test code = Total 7.7 6.4-8.4 Protein) [facility]2019-05-11 01:30:00 Test Item Value Reference Range Interpretation Comments Glucose Lvl (test code = Glucose Lvl) 122 70-99 [facility]2019-05-11 01:30:00 Test Item Value Reference Range Interpretation Comments BUN (test code = BUN) 14 7-22 [facility]2019-05-11 01:30:00 Test Item Value Reference Range Interpretation Comments Calcium Lvl (test code = Calcium Lvl) 9.3 8.5-10.5 [facility]2019-05-11 01:30:00 Test Item Value Reference Range Interpretation Comments CO2 (test code = CO2) 27 24-32 [facility] HospitalPzojzmwBDBZMYFDGK0395-12-68 01:30:00 Test Item Value Reference Range Interpretation Comments Eosinophils # (test code 0.1 See_Comment [A utomated message] The = Eosinophils #) system whic h generated this result tra nsmitted reference range : <=0.5. The reference r alee was not used to int erpret this result as normal/abnormal . [facility] CenterBfsqbbyYMGJLSGLME9293-74-89 01:30:00 Test Item Value Reference Range Interpretation Comments Microcyte (test code = 2+ *ABN*(07/29/18 Microcyte) 8:30 PM) [facility] CenterSzwutiwPXNXORMDFT4525-37-66 01:30:00 Test Item Value Reference Range Interpretation Comments Neutrophils # (test code = Neutrophils 9.1 1.5-8.1 #) [facility] CenterMmaihtgAEFWPRMZWS0000-26-36 01:30:00 Test Item Value Reference Range Interpretation Comments Lymphocytes # (test code = Lymphocytes 1.3 1.0-5.5 #) [facility] CenterXjtjwmySMAMTRYUZN3989-69-10 01:30:00 Test Item Value Reference Range Interpretation Comments Monocytes # (test code 0.7 See_Comment [Aut omated message] The = Monocytes #) system which generated this result tra nsmitted reference range : <=0.8. The reference r alee was not used to int erpret this result as normal/abnormal . [facility] CenterAwzfbvwYOBVYPLNDD3637-43-77 01:30:00 Test Item Value Reference Range Interpretation Comments Segs (test code = Segs) 81.3 45.0-75.0 [facility] CenterTtfjueaEWWBXBNKZZ9089-56-09 01:30:00 Test Item Value Reference Range Interpretation Comments Lymphocytes (test code = Lymphocytes) 11.3 20.0-40.0 [facility] CenterWkoiuicEWEZSJGRNR0546-68-47 01:30:00 Test Item Value Reference Range Interpretation Comments Monocytes (test code = Monocytes) 6.3 2.0-12.0 [facility] CenterMvjybryBBWUBHGKLD3956-27-76 01:30:00 Test Item Value Reference Range Interpretation Comments Eosinophils (test code = 0.7 See_Comment [A utomated message] The Eosinophils) system which ge nerated this result tra nsmitted reference range : <=4.0. The reference r alee was not used to int erpret this result as normal/abnormal . [facility] CenterSygvpgiMDIWKNFHGD5488-01-80 01:30:00 Test Item Value Reference Range Interpretation Comments Basophils (test code = 0.4 See_Comment [Aut omated message] The Basophils) system which ge nerated this result tra nsmitted reference range : <=1.0. The reference r alee was not used to int erpret this result as normal/abnormal . [facility] CenterWzbufjkYXSGLSTRRS1683-38-91 01:30:00 Test Item Value Reference Range Interpretation Comments PTT (test code = PTT) 32.2 s 22.9-35.8 [facility] CenterIaviuggUJCZAYSUWS2670-05-52 01:30:00 Test Item Value Reference Range Interpretation Comments INR (test code = INR) 1.08 1 0.85-1.17 [facility] CenterKzlbrtlHQFXTCUHBV7321-40-91 01:30:00 Test Item Value Reference Range Interpretation Comments PT (test code = PT) 13.8 s 12.0-14.7 [facility] CenterFwqffgpQWGPYUVJMO8454-25-74 01:30:00 Test Item Value Reference Range Interpretation Comments Hct (test code = Hct) 30.3 36.0-48.0 [facility] CenterXxqyzxbVLOOYKPDIJ4283-28-29 01:30:00 Test Item Value Reference Range Interpretation Comments Platelet (test code = Platelet) 372 133-450 [facility] CenterXzfyiqbJNWYUWVBRA5250-64-65 01:30:00 Test Item Value Reference Range Interpretation Comments RDW (test code = RDW) 17.1 11.5-14.5 [facility] CenterIfuosxqLICLUQSTTK9827-59-89 01:30:00 Test Item Value Reference Range Interpretation Comments MCH (test code = MCH) 22.5 pg 27.0-31.0 [facility] CenterTnoaxyuENJBGAWSPW1328-12-95 01:30:00 Test Item Value Reference Range Interpretation Comments MCV (test code = MCV) 70.9 80.0-98.0 [facility] CenterXqsstdoTTINALJVPA9036-03-64 01:30:00 Test Item Value Reference Range Interpretation Comments MPV (test code = MPV) 8.1 7.4-10.4 [facility] CenterWgkypotRHLBLWBSSQ8273-99-96 01:30:00 Test Item Value Reference Range Interpretation Comments MCHC (test code = MCHC) 31.7 32.0-36.0 [facility] CenterOxutkziJDQVECBSXZ6671-38-61 01:30:00 Test Item Value Reference Range Interpretation Comments Hgb (test code = Hgb) 9.6 12.0-16.0 [facility] CenterBflpptpINUNCIZRSJ0084-25-35 01:30:00 Test Item Value Reference Range Interpretation Comments WBC (test code = WBC) 11.3 3.7-10.4 [facility] HospitalZhedwfgHVYSVDXRVZ9240-58-37 01:30:00 Test Item Value Reference Range Interpretation Comments RBC (test code = RBC) 4.27 4.20-5.40 [facility] QWWVRVN5679-14-14 01:30:00 Test Item Value Reference Range Interpretation Comments BNP (test code = BNP) 44 [facility] XVDDFJY0977-64-89 01:30:00 Test Item Value Reference Range Interpretation Comments Total CK (test code = Total CK) 34 12-191 [facility] MCTILGM3530-98-57 01:30:00 Test Item Value Reference Range Interpretation Comments Troponin-I (test code no gt See_Comment [Auto mated message] The = Troponin-I) system which g enerated this result transmit kenroy reference range : <=0.40. The reference r alee was not used to interpr et this result as elton l/abnormal. [facility]BuscoTurno OJOPO0862-98-76 01:30:00 Test Item Value Reference Range Interpretation Comments Lactic Acid Lvl (test code = Lactic 2.8 0.5-2.2 Acid Lvl) [facility] XMYIZ4863-62-54 01:30:00 Test Item Value Reference Range Interpretation Comments Lipase Lvl (test code = Lipase Lvl) 131 73-393 [facility]2019-05-11 01:30:00 Test Item Value Reference Range Interpretation Comments Magnesium Lvl (test code = Magnesium 1.8 1.8-2.4 Lvl) [facility]2019-05-11 01:30:00 Test Item Value Reference Range Interpretation Comments Globulin (test code = Globulin) 4.5 2.7-4.2 [facility]2019-05-11 01:30:00 Test Item Value Reference Range Interpretation Comments AGAP (test code = AGAP) 12.5 10.0-20.0 [facility]2019-05-11 01:30:00 Test Item Value Reference Range Interpretation Comments A/G Ratio (test code = A/G Ratio) 0.7 1 0.7-1.6 [facility]2019-05-11 01:30:00 Test Item Value Reference Range Interpretation Comments B/C Ratio (test code = B/C Ratio) 13 1 6-25 [facility]2019-05-11 01:30:00 Test Item Value Reference Range Interpretation Comments eGFR (test code = eGFR) 65 [facility]2019-05-11 01:30:00 Test Item Value Reference Range Interpretation Comments Alk Phos (test code = Alk Phos) 127 39-136 [facility]2019-05-11 01:30:00 Test Item Value Reference Range Interpretation Comments Bili Total (test code = Bili Total) 0.4 0.2-1.3 [place] 200509-05-11 01:30:00 Test Item Value Reference Range Interpretation Comments ALT (test code = ALT) 14 See_Comment [Auto mated message] The system which ge nerated this result transmit kenroy reference range : <=65. The reference range was not used to interpr et this result as elton l/abnormal. [facility]2019-05-11 01:30:00 Test Item Value Reference Range Interpretation Comments AST (test code = AST) 8 See_Comment [Auto mated message] The system which ge nerated this result transmit kenroy reference range : <=37. The reference range was not used to interpr et this result as elton l/abnormal. [facility]2019-05-11 01:30:00 Test Item Value Reference Range Interpretation Comments Albumin Lvl (test code = Albumin Lvl) 3.2 3.5-5.0 [facility]2019-05-11 01:30:00 Test Item Value Reference Range Interpretation Comments Creatinine Lvl (test code = Creatinine 1.09 0.50-1.40 Lvl) [facility]2019-05-11 01:30:00 Test Item Value Reference Range Interpretation Comments Sodium Lvl (test code = Sodium Lvl) 136 135-145 [facility]2019-05-11 01:30:00 Test Item Value Reference Range Interpretation Comments Potassium Lvl (test code = Potassium 3.5 3.5-5.1 Lvl) [facility]2019-05-11 01:30:00 Test Item Value Reference Range Interpretation Comments Chloride Lvl (test code = Chloride Lvl) 100 95-109 [facility]2019-05-11 01:30:00 Test Item Value Reference Range Interpretation Comments Total Protein (test code = Total 7.7 6.4-8.4 Protein) [facility]2019-05-11 01:30:00 Test Item Value Reference Range Interpretation Comments Glucose Lvl (test code = Glucose Lvl) 122 70-99 [place] 200509-05-11 01:30:00 Test Item Value Reference Range Interpretation Comments BUN (test code = BUN) 14 7-22 [facility]2019-05-11 01:30:00 Test Item Value Reference Range Interpretation Comments Calcium Lvl (test code = Calcium Lvl) 9.3 8.5-10.5 [facility]2019-05-11 01:30:00 Test Item Value Reference Range Interpretation Comments CO2 (test code = CO2) 27 24-32 [facility] CenterOmcliztWNQRBVJQNQ9882-98-96 01:30:00 Test Item Value Reference Range Interpretation Comments Eosinophils # (test code 0.1 See_Comment [A utomated message] The = Eosinophils #) system whic h generated this result tra nsmitted reference range : <=0.5. The reference r alee was not used to int erpret this result as normal/abnormal . [facility] CenterOgqrtjsLMNHKKZOBO4043-83-69 01:30:00 Test Item Value Reference Range Interpretation Comments Microcyte (test code = 2+ *ABN*(07/29/18 Microcyte) 8:30 PM) [facility] CenterEmwjgfgUWVXNUPYAH3659-29-42 01:30:00 Test Item Value Reference Range Interpretation Comments Neutrophils # (test code = Neutrophils 9.1 1.5-8.1 #) [facility] CenterRdboreaWTHDFEQNDW9489-38-15 01:30:00 Test Item Value Reference Range Interpretation Comments Lymphocytes # (test code = Lymphocytes 1.3 1.0-5.5 #) [facility] CenterVbwyehqLLRKPYMUDP1431-37-72 01:30:00 Test Item Value Reference Range Interpretation Comments Monocytes # (test code 0.7 See_Comment [Aut omated message] The = Monocytes #) system which generated this result tra nsmitted reference range : <=0.8. The reference r alee was not used to int erpret this result as normal/abnormal . [facility] CenterEsdrmmyCQKXVNPNQL1212-12-33 01:30:00 Test Item Value Reference Range Interpretation Comments Segs (test code = Segs) 81.3 45.0-75.0 [facility] CenterXupgupzEZMEECISLU3970-19-23 01:30:00 Test Item Value Reference Range Interpretation Comments Lymphocytes (test code = Lymphocytes) 11.3 20.0-40.0 [facility] CenterFbnsvlhCDUUWIGOFT4417-03-69 01:30:00 Test Item Value Reference Range Interpretation Comments Monocytes (test code = Monocytes) 6.3 2.0-12.0 [facility] CenterXobhtvaFLFFLYXXGC9905-63-78 01:30:00 Test Item Value Reference Range Interpretation Comments Eosinophils (test code = 0.7 See_Comment [A utomated message] The Eosinophils) system which ge nerated this result tra nsmitted reference range : <=4.0. The reference r alee was not used to int erpret this result as normal/abnormal . [facility] CenterZhhnyapMPEUNYLSHG6500-10-65 01:30:00 Test Item Value Reference Range Interpretation Comments Basophils (test code = 0.4 See_Comment [Aut omated message] The Basophils) system which ge nerated this result tra nsmitted reference range : <=1.0. The reference r alee was not used to int erpret this result as normal/abnormal . [facility] CenterVdliqzqSIPOQFMINC0653-04-97 01:30:00 Test Item Value Reference Range Interpretation Comments PTT (test code = PTT) 32.2 s 22.9-35.8 [facility] CenterDqxxsrnMHZZNVSUOR0332-90-72 01:30:00 Test Item Value Reference Range Interpretation Comments INR (test code = INR) 1.08 1 0.85-1.17 [facility] CenterQnlenwrLPDOAWNWMN5568-96-21 01:30:00 Test Item Value Reference Range Interpretation Comments PT (test code = PT) 13.8 s 12.0-14.7 [facility] CenterNgwaeeyQSPPPFBTBN4216-62-93 01:30:00 Test Item Value Reference Range Interpretation Comments Hct (test code = Hct) 30.3 36.0-48.0 [facility] CenterYmlmjypIHTYBDQYOF6767-00-93 01:30:00 Test Item Value Reference Range Interpretation Comments Platelet (test code = Platelet) 372 133-450 [facility] [facility]HmewaujKYFTRCTKPZ2024-89-68 01:30:00 Test Item Value Reference Range Interpretation Comments RDW (test code = RDW) 17.1 11.5-14.5 [facility]JbbhxijBUWZLUZJHN1610-49-68 01:30:00 Test Item Value Reference Range Interpretation Comments MCH (test code = MCH) 22.5 pg 27.0-31.0 [facility] CenterSuizcizNYBDUYVVVN1757-02-42 01:30:00 Test Item Value Reference Range Interpretation Comments MCV (test code = MCV) 70.9 80.0-98.0 [facility] CenterOynzdjxMQGUHHTYRZ5397-61-21 01:30:00 Test Item Value Reference Range Interpretation Comments MPV (test code = MPV) 8.1 7.4-10.4 [facility] CenterWyodysqUIRKCVXPNO2762-12-92 01:30:00 Test Item Value Reference Range Interpretation Comments MCHC (test code = MCHC) 31.7 32.0-36.0 [facility] CenterNhvkjxaYQAGKWNHTN0913-11-28 01:30:00 Test Item Value Reference Range Interpretation Comments Hgb (test code = Hgb) 9.6 12.0-16.0 [facility] CenterIbvjoldDGSPINRTVK0271-24-46 01:30:00 Test Item Value Reference Range Interpretation Comments WBC (test code = WBC) 11.3 3.7-10.4 [facility] HospitalRonffzwXHTAEVIRIV7188-71-05 01:30:00 Test Item Value Reference Range Interpretation Comments RBC (test code = RBC) 4.27 4.20-5.40 [facility] CenterCytoSolv WWXPDPG5706-30-05 01:30:00 Test Item Value Reference Range Interpretation Comments BNP (test code = BNP) 44 [facility]doc[facility] NXCPWJT3055-04-59 01:30:00 Test Item Value Reference Range Interpretation Comments Total CK (test code = Total CK) 34 12-191 [facility] HospitalLuxTicket.sg CHVCMRO0304-89-42 01:30:00 Test Item Value Reference Range Interpretation Comments Troponin-I (test code no gt See_Comment [Auto mated message] The = Troponin-I) system which g enerated this result transmit kenroy reference range : <=0.40. The reference r alee was not used to interpr et this result as elton l/abnormal. [facility] Com[employer] [id number] 01:30:00 Test Item Value Reference Range Interpretation Comments Lactic Acid Lvl (test code = Lactic 2.8 0.5-2.2 Acid Lvl) [facility] CenterannWIL[facility] MED[facility] CENTEROJCZP3810-27-81 01:30:00 Test Item Value Reference Range Interpretation Comments Lipase Lvl (test code = Lipase Lvl) 131 73-393 [place] 200509-05-11 01:30:00 Test Item Value Reference Range Interpretation Comments Magnesium Lvl (test code = Magnesium 1.8 1.8-2.4 Lvl) [place] 200509-05-11 01:30:00 Test Item Value Reference Range Interpretation Comments Globulin (test code = Globulin) 4.5 2.7-4.2 [place] 200509-05-11 01:30:00 Test Item Value Reference Range Interpretation Comments AGAP (test code = AGAP) 12.5 10.0-20.0 [place] 200509-05-11 01:30:00 Test Item Value Reference Range Interpretation Comments A/G Ratio (test code = A/G Ratio) 0.7 1 0.7-1.6 [place] [address]-05-11 01:30:00 Test Item Value Reference Range Interpretation Comments B/C Ratio (test code = B/C Ratio) 13 1 6-25 [place] 200509-05-11 01:30:00 Test Item Value Reference Range Interpretation Comments eGFR (test code = eGFR) 65 [place] 200509-05-11 01:30:00 Test Item Value Reference Range Interpretation Comments Alk Phos (test code = Alk Phos) 127 39-136 [place] 200509-05-11 01:30:00 Test Item Value Reference Range Interpretation Comments Bili Total (test code = Bili Total) 0.4 0.2-1.3 [place] 200509-05-11 01:30:00 Test Item Value Reference Range Interpretation Comments ALT (test code = ALT) 14 See_Comment [Auto mated message] The system which ge nerated this result transmit kenroy reference range : <=65. The reference range was not used to interpr et this result as elton l/abnormal. [place] 200509-05-11 01:30:00 Test Item Value Reference Range Interpretation Comments AST (test code = AST) 8 See_Comment [Auto mated message] The system which ge nerated this result transmit kenroy reference range : <=37. The reference range was not used to interpr et this result as elton l/abnormal. [facility]2019-05-11 01:30:00 Test Item Value Reference Range Interpretation Comments Albumin Lvl (test code = Albumin Lvl) 3.2 3.5-5.0 [facility]2019-05-11 01:30:00 Test Item Value Reference Range Interpretation Comments Creatinine Lvl (test code = Creatinine 1.09 0.50-1.40 Lvl) [facility]2019-05-11 01:30:00 Test Item Value Reference Range Interpretation Comments Sodium Lvl (test code = Sodium Lvl) 136 135-145 [facility]2019-05-11 01:30:00 Test Item Value Reference Range Interpretation Comments Potassium Lvl (test code = Potassium 3.5 3.5-5.1 Lvl) [facility]2019-05-11 01:30:00 Test Item Value Reference Range Interpretation Comments Chloride Lvl (test code = Chloride Lvl) 100 95-109 [facility]2019-05-11 01:30:00 Test Item Value Reference Range Interpretation Comments Total Protein (test code = Total 7.7 6.4-8.4 Protein) [facility]2019-05-11 01:30:00 Test Item Value Reference Range Interpretation Comments Glucose Lvl (test code = Glucose Lvl) 122 70-99 [facility]2019-05-11 01:30:00 Test Item Value Reference Range Interpretation Comments BUN (test code = BUN) 14 7-22 [facility]2019-05-11 01:30:00 Test Item Value Reference Range Interpretation Comments Calcium Lvl (test code = Calcium Lvl) 9.3 8.5-10.5 [facility]2019-05-11 01:30:00 Test Item Value Reference Range Interpretation Comments CO2 (test code = CO2) 27 24-32 [facility] CenterKpahuhbKAKUGIWQXH2069-29-53 01:30:00 Test Item Value Reference Range Interpretation Comments Eosinophils # (test code 0.1 See_Comment [A utomated message] The = Eosinophils #) system whic h generated this result tra nsmitted reference range : <=0.5. The reference r alee was not used to int erpret this result as normal/abnormal . [facility] CenterWchlelzSEXBHSXQZU9936-54-28 01:30:00 Test Item Value Reference Range Interpretation Comments Microcyte (test code = 2+ *ABN*(07/29/18 Microcyte) 8:30 PM) [facility] CenterBvopndzCINAJEYSHI9305-86-47 01:30:00 Test Item Value Reference Range Interpretation Comments Neutrophils # (test code = Neutrophils 9.1 1.5-8.1 #) [facility] CenterCsxtskjFIBRZMZAIG5333-08-12 01:30:00 Test Item Value Reference Range Interpretation Comments Lymphocytes # (test code = Lymphocytes 1.3 1.0-5.5 #) [facility] CenterFidlaumLNXLUVWOTJ6749-98-91 01:30:00 Test Item Value Reference Range Interpretation Comments Monocytes # (test code 0.7 See_Comment [Aut omated message] The = Monocytes #) system which generated this result tra nsmitted reference range : <=0.8. The reference r alee was not used to int erpret this result as normal/abnormal . [facility] CenterAstbnadLIRCXVQMXH7372-35-92 01:30:00 Test Item Value Reference Range Interpretation Comments Segs (test code = Segs) 81.3 45.0-75.0 [facility] CenterWzzuhxiUDXTWFWHOZ5933-60-36 01:30:00 Test Item Value Reference Range Interpretation Comments Lymphocytes (test code = Lymphocytes) 11.3 20.0-40.0 [facility] CenterBpflzppBCUAIANYQM0776-92-64 01:30:00 Test Item Value Reference Range Interpretation Comments Monocytes (test code = Monocytes) 6.3 2.0-12.0 [facility] CenterPhcvbfeKOUOBDTGTZ6713-00-94 01:30:00 Test Item Value Reference Range Interpretation Comments Eosinophils (test code = 0.7 See_Comment [A utomated message] The Eosinophils) system which ge nerated this result tra nsmitted reference range : <=4.0. The reference r alee was not used to int erpret this result as normal/abnormal . [facility] CenterBkeygdkCTPWYMICMV7120-47-37 01:30:00 Test Item Value Reference Range Interpretation Comments Basophils (test code = 0.4 See_Comment [Aut omated message] The Basophils) system which ge nerated this result tra nsmitted reference range : <=1.0. The reference r alee was not used to int erpret this result as normal/abnormal . [facility] CenterXmjjooeMNHWONZNQJ7776-94-03 01:30:00 Test Item Value Reference Range Interpretation Comments PTT (test code = PTT) 32.2 s 22.9-35.8 [facility] CenterJgczucqXAVFUFRFBE5644-64-67 01:30:00 Test Item Value Reference Range Interpretation Comments INR (test code = INR) 1.08 1 0.85-1.17 [facility] CenterFmxohcgTAITSCAHKG9787-40-72 01:30:00 Test Item Value Reference Range Interpretation Comments PT (test code = PT) 13.8 s 12.0-14.7 [facility] CenterPieoczcLIKJMKKFKK0429-45-82 01:30:00 Test Item Value Reference Range Interpretation Comments Hct (test code = Hct) 30.3 36.0-48.0 [facility] CenterAphodefLLITBRLEZD8482-50-09 01:30:00 Test Item Value Reference Range Interpretation Comments Platelet (test code = Platelet) 372 133-450 [facility] CenterYruhczvGYPINWZOGY2788-62-89 01:30:00 Test Item Value Reference Range Interpretation Comments RDW (test code = RDW) 17.1 11.5-14.5 [facility] CenterKhprxkrIICUTCGXIM2846-91-61 01:30:00 Test Item Value Reference Range Interpretation Comments MCH (test code = MCH) 22.5 pg 27.0-31.0 [facility] CenterElvaooyNQDZMJRYGD0617-55-86 01:30:00 Test Item Value Reference Range Interpretation Comments MCV (test code = MCV) 70.9 80.0-98.0 [facility] CenterIbkkoccWUVUXKCXPD2051-60-98 01:30:00 Test Item Value Reference Range Interpretation Comments MPV (test code = MPV) 8.1 7.4-10.4 [facility] CenterUpmyfnkCHIBDWEBHO1616-15-89 01:30:00 Test Item Value Reference Range Interpretation Comments MCHC (test code = MCHC) 31.7 32.0-36.0 [facility] CenterLoevlwaFLHHURZOUM4862-45-36 01:30:00 Test Item Value Reference Range Interpretation Comments Hgb (test code = Hgb) 9.6 12.0-16.0 [facility] CenterAmsvkgqJHSJPOXDGJ6164-99-68 01:30:00 Test Item Value Reference Range Interpretation Comments WBC (test code = WBC) 11.3 3.7-10.4 [facility] CenterZvivnxuPGVRBNIYAD3750-54-61 01:30:00 Test Item Value Reference Range Interpretation Comments RBC (test code = RBC) 4.27 4.20-5.40 [facility] CenterWallStripCARLight Harmonic [id number] 01:30:00 Test Item Value Reference Range Interpretation Comments BNP (test code = BNP) 44 [facility] [id number] 01:30:00 Test Item Value Reference Range Interpretation Comments Total CK (test code = Total CK) 34 12-191 [facility] HospitalFigmentSA[facility] LNSOCRY5414-13-85 01:30:00 Test Item Value Reference Range Interpretation Comments Troponin-I (test code no gt See_Comment [Auto mated message] The = Troponin-I) system which g enerated this result transmit kenroy reference range : <=0.40. The reference r alee was not used to interpr et this result as elton l/abnormal. [facility] [employer] [id number] 01:30:00 Test Item Value Reference Range Interpretation Comments Lactic Acid Lvl (test code = Lactic 2.8 0.5-2.2 Acid Lvl) [facility] CenterBlitz X [employer] [id number] 01:30:00 Test Item Value Reference Range Interpretation Comments Lipase Lvl (test code = Lipase Lvl) 131 73-393 [facility] CenterBl[facility] [employer] [id number] 01:30:00 Test Item Value Reference Range Interpretation Comments Magnesium Lvl (test code = Magnesium 1.8 1.8-2.4 Lvl) [facility] CenterBl[facility] [employer] [id number] 01:30:00 Test Item Value Reference Range Interpretation Comments Globulin (test code = Globulin) 4.5 2.7-4.2 [facility] CenterBl[facility] [employer] [id number] 01:30:00 Test Item Value Reference Range Interpretation Comments AGAP (test code = AGAP) 12.5 10.0-20.0 [facility] CenterBl[facility] [employer] [id number] 01:30:00 Test Item Value Reference Range Interpretation Comments A/G Ratio (test code = A/G Ratio) 0.7 1 0.7-1.6 [facility] HospitalBuscoTurno [id number] 01:30:00 Test Item Value Reference Range Interpretation Comments B/C Ratio (test code = B/C Ratio) 13 1 6-25 [facility] CenterBl[facility] [employer] [id number] 01:30:00 Test Item Value Reference Range Interpretation Comments eGFR (test code = eGFR) 65 [facility]2019-05-11 01:30:00 Test Item Value Reference Range Interpretation Comments Alk Phos (test code = Alk Phos) 127 39-136 [facility]2019-05-11 01:30:00 Test Item Value Reference Range Interpretation Comments Bili Total (test code = Bili Total) 0.4 0.2-1.3 [place] 200509-05-11 01:30:00 Test Item Value Reference Range Interpretation Comments ALT (test code = ALT) 14 See_Comment [Auto mated message] The system which ge nerated this result transmit kenroy reference range : <=65. The reference range was not used to interpr et this result as elton l/abnormal. [facility]2019-05-11 01:30:00 Test Item Value Reference Range Interpretation Comments AST (test code = AST) 8 See_Comment [Auto mated message] The system which ge nerated this result transmit kenroy reference range : <=37. The reference range was not used to interpr et this result as elton l/abnormal. [facility]2019-05-11 01:30:00 Test Item Value Reference Range Interpretation Comments Albumin Lvl (test code = Albumin Lvl) 3.2 3.5-5.0 [facility]2019-05-11 01:30:00 Test Item Value Reference Range Interpretation Comments Creatinine Lvl (test code = Creatinine 1.09 0.50-1.40 Lvl) [facility]2019-05-11 01:30:00 Test Item Value Reference Range Interpretation Comments Sodium Lvl (test code = Sodium Lvl) 136 135-145 [facility]2019-05-11 01:30:00 Test Item Value Reference Range Interpretation Comments Potassium Lvl (test code = Potassium 3.5 3.5-5.1 Lvl) [facility]2019-05-11 01:30:00 Test Item Value Reference Range Interpretation Comments Chloride Lvl (test code = Chloride Lvl) 100 95-109 [facility]2019-05-11 01:30:00 Test Item Value Reference Range Interpretation Comments Total Protein (test code = Total 7.7 6.4-8.4 Protein) [facility]2019-05-11 01:30:00 Test Item Value Reference Range Interpretation Comments Glucose Lvl (test code = Glucose Lvl) 122 70-99 [facility]2019-05-11 01:30:00 Test Item Value Reference Range Interpretation Comments BUN (test code = BUN) 14 7-22 [facility]2019-05-11 01:30:00 Test Item Value Reference Range Interpretation Comments Calcium Lvl (test code = Calcium Lvl) 9.3 8.5-10.5 [facility]2019-05-11 01:30:00 Test Item Value Reference Range Interpretation Comments CO2 (test code = CO2) 27 24-32 [facility] CenterNbugqgvNNBQCMLUVJ8232-59-16 01:30:00 Test Item Value Reference Range Interpretation Comments Eosinophils # (test code 0.1 See_Comment [A utomated message] The = Eosinophils #) system whic h generated this result tra nsmitted reference range : <=0.5. The reference r alee was not used to int erpret this result as normal/abnormal . [facility] CenterBybhwltBCTVQJTGIE6792-83-73 01:30:00 Test Item Value Reference Range Interpretation Comments Microcyte (test code = 2+ *ABN*(07/29/18 Microcyte) 8:30 PM) [facility] CenterFkehmoqOOJQMVJWPC9634-28-66 01:30:00 Test Item Value Reference Range Interpretation Comments Neutrophils # (test code = Neutrophils 9.1 1.5-8.1 #) [facility] CenterErohpwpKKQNMEBUMB7739-73-34 01:30:00 Test Item Value Reference Range Interpretation Comments Lymphocytes # (test code = Lymphocytes 1.3 1.0-5.5 #) [facility] CenterQdbttneZPAZINYCGX0297-96-55 01:30:00 Test Item Value Reference Range Interpretation Comments Monocytes # (test code 0.7 See_Comment [Aut omated message] The = Monocytes #) system which generated this result tra nsmitted reference range : <=0.8. The reference r alee was not used to int erpret this result as normal/abnormal . [facility] CenterQsmhgemICRGCTVEKS6432-75-31 01:30:00 Test Item Value Reference Range Interpretation Comments Segs (test code = Segs) 81.3 45.0-75.0 [facility] CenterQzsesqlJAOQEXZWMB7485-62-92 01:30:00 Test Item Value Reference Range Interpretation Comments Lymphocytes (test code = Lymphocytes) 11.3 20.0-40.0 [facility] CenterQpzjubvNKQAOULWFO3473-82-22 01:30:00 Test Item Value Reference Range Interpretation Comments Monocytes (test code = Monocytes) 6.3 2.0-12.0 [facility] CenterGrhydwfRBHPIYUCOY5805-92-29 01:30:00 Test Item Value Reference Range Interpretation Comments Eosinophils (test code = 0.7 See_Comment [A utomated message] The Eosinophils) system which ge nerated this result tra nsmitted reference range : <=4.0. The reference r alee was not used to int erpret this result as normal/abnormal . [facility] CenterMplzyvkYZOCHPACWN4385-68-07 01:30:00 Test Item Value Reference Range Interpretation Comments Basophils (test code = 0.4 See_Comment [Aut omated message] The Basophils) system which ge nerated this result tra nsmitted reference range : <=1.0. The reference r alee was not used to int erpret this result as normal/abnormal . [facility] CenterJelqeydCWVOIXHRJJ1765-45-56 01:30:00 Test Item Value Reference Range Interpretation Comments PTT (test code = PTT) 32.2 s 22.9-35.8 [facility] CenterKhwflpjSTYSTQYXYB5621-68-21 01:30:00 Test Item Value Reference Range Interpretation Comments INR (test code = INR) 1.08 1 0.85-1.17 [facility] CenterAxwhrqmVUOCGGOQPR3667-17-13 01:30:00 Test Item Value Reference Range Interpretation Comments PT (test code = PT) 13.8 s 12.0-14.7 [facility] CenterOwmqvwwIQECYACVEV3856-51-16 01:30:00 Test Item Value Reference Range Interpretation Comments Hct (test code = Hct) 30.3 36.0-48.0 [facility] CenterTehcpcePEKEEBNBHP6325-62-96 01:30:00 Test Item Value Reference Range Interpretation Comments Platelet (test code = Platelet) 372 133-450 [facility] CenterLxfqdqtMKBZEOABNE7857-40-52 01:30:00 Test Item Value Reference Range Interpretation Comments RDW (test code = RDW) 17.1 11.5-14.5 [facility] CenterKrsrsuqIPUVEFOOHU9427-34-81 01:30:00 Test Item Value Reference Range Interpretation Comments MCH (test code = MCH) 22.5 pg 27.0-31.0 [facility] CenterSjttqbwGLFLQZCAXR7481-13-24 01:30:00 Test Item Value Reference Range Interpretation Comments MCV (test code = MCV) 70.9 80.0-98.0 [facility] CenterQtgfplfDUJLZINFLY2530-11-42 01:30:00 Test Item Value Reference Range Interpretation Comments MPV (test code = MPV) 8.1 7.4-10.4 [facility] CenterGhpicoeRNHFQJYUPP7804-34-59 01:30:00 Test Item Value Reference Range Interpretation Comments MCHC (test code = MCHC) 31.7 32.0-36.0 [facility] CenterJbsdheoHYCUYSBOMB7729-79-65 01:30:00 Test Item Value Reference Range Interpretation Comments Hgb (test code = Hgb) 9.6 12.0-16.0 [facility] CenterLfcjdnhOTJEHQXQBP1169-40-91 01:30:00 Test Item Value Reference Range Interpretation Comments WBC (test code = WBC) 11.3 3.7-10.4 [facility] CenterPriyregOXPGZXNYDG9455-75-30 01:30:00 Test Item Value Reference Range Interpretation Comments RBC (test code = RBC) 4.27 4.20-5.40 [facility] HospitalCARLight [facility]onic [id number] 01:30:00 Test Item Value Reference Range Interpretation Comments BNP (test code = BNP) 44 [facility] [id number] 01:30:00 Test Item Value Reference Range Interpretation Comments Total CK (test code = Total CK) 34 12-191 [facility] [id number] 01:30:00 Test Item Value Reference Range Interpretation Comments Troponin-I (test code no gt See_Comment [Auto mated message] The = Troponin-I) system which g enerated this result transmit kenroy reference range : <=0.40. The reference r alee was not used to interpr et this result as elton l/abnormal. [facility] CenterBl[facility] X [employer] [id number] 01:30:00 Test Item Value Reference Range Interpretation Comments Lactic Acid Lvl (test code = Lactic 2.8 0.5-2.2 Acid Lvl) [facility] HospitalBuscoTurno [id number] 01:30:00 Test Item Value Reference Range Interpretation Comments Lipase Lvl (test code = Lipase Lvl) 131 73-393 [facility] HospitalBuscoTurno [id number] 01:30:00 Test Item Value Reference Range Interpretation Comments Magnesium Lvl (test code = Magnesium 1.8 1.8-2.4 Lvl) [facility]2019-05-11 01:30:00 Test Item Value Reference Range Interpretation Comments Globulin (test code = Globulin) 4.5 2.7-4.2 [facility]2019-05-11 01:30:00 Test Item Value Reference Range Interpretation Comments AGAP (test code = AGAP) 12.5 10.0-20.0 [place] 200509-05-11 01:30:00 Test Item Value Reference Range Interpretation Comments A/G Ratio (test code = A/G Ratio) 0.7 1 0.7-1.6 [place] 200509-05-11 01:30:00 Test Item Value Reference Range Interpretation Comments B/C Ratio (test code = B/C Ratio) 13 1 6-25 [place] 200509-05-11 01:30:00 Test Item Value Reference Range Interpretation Comments eGFR (test code = eGFR) 65 [facility]2019-05-11 01:30:00 Test Item Value Reference Range Interpretation Comments Alk Phos (test code = Alk Phos) 127 39-136 [facility]2019-05-11 01:30:00 Test Item Value Reference Range Interpretation Comments Bili Total (test code = Bili Total) 0.4 0.2-1.3 [place] 200509-05-11 01:30:00 Test Item Value Reference Range Interpretation Comments ALT (test code = ALT) 14 See_Comment [Auto mated message] The system which ge nerated this result transmit kenroy reference range : <=65. The reference range was not used to interpr et this result as elton l/abnormal. [facility]2019-05-11 01:30:00 Test Item Value Reference Range Interpretation Comments AST (test code = AST) 8 See_Comment [Auto mated message] The system which ge nerated this result transmit kenroy reference range : <=37. The reference range was not used to interpr et this result as elton l/abnormal. [place] 200509-05-11 01:30:00 Test Item Value Reference Range Interpretation Comments Albumin Lvl (test code = Albumin Lvl) 3.2 3.5-5.0 [facility]2019-05-11 01:30:00 Test Item Value Reference Range Interpretation Comments Creatinine Lvl (test code = Creatinine 1.09 0.50-1.40 Lvl) [facility]2019-05-11 01:30:00 Test Item Value Reference Range Interpretation Comments Sodium Lvl (test code = Sodium Lvl) 136 135-145 [facility]2019-05-11 01:30:00 Test Item Value Reference Range Interpretation Comments Potassium Lvl (test code = Potassium 3.5 3.5-5.1 Lvl) [facility]2019-05-11 01:30:00 Test Item Value Reference Range Interpretation Comments Chloride Lvl (test code = Chloride Lvl) 100 95-109 [facility]2019-05-11 01:30:00 Test Item Value Reference Range Interpretation Comments Total Protein (test code = Total 7.7 6.4-8.4 Protein) [facility]2019-05-11 01:30:00 Test Item Value Reference Range Interpretation Comments Glucose Lvl (test code = Glucose Lvl) 122 70-99 [facility]2019-05-11 01:30:00 Test Item Value Reference Range Interpretation Comments BUN (test code = BUN) 14 7-22 [facility]2019-05-11 01:30:00 Test Item Value Reference Range Interpretation Comments Calcium Lvl (test code = Calcium Lvl) 9.3 8.5-10.5 [facility]2019-05-11 01:30:00 Test Item Value Reference Range Interpretation Comments CO2 (test code = CO2) 27 24-32 [facility] CenterWsitftxNLGCPOVHAH5083-03-03 01:30:00 Test Item Value Reference Range Interpretation Comments Eosinophils # (test code 0.1 See_Comment [A utomated message] The = Eosinophils #) system whic h generated this result tra nsmitted reference range : <=0.5. The reference r alee was not used to int erpret this result as normal/abnormal . [facility] CenterEnwsyhiZXLDYLINNI1147-43-69 01:30:00 Test Item Value Reference Range Interpretation Comments Microcyte (test code = 2+ *ABN*(07/29/18 Microcyte) 8:30 PM) [facility] CenterMtxduhgDOZMEYCBVF5276-17-13 01:30:00 Test Item Value Reference Range Interpretation Comments Neutrophils # (test code = Neutrophils 9.1 1.5-8.1 #) [facility]GcdwuikFRRJNYIMEB6676-39-99 01:30:00 Test Item Value Reference Range Interpretation Comments Lymphocytes # (test code = Lymphocytes 1.3 1.0-5.5 #) [facility] CenterWdhomibOMELYSKEDK7246-99-11 01:30:00 Test Item Value Reference Range Interpretation Comments Monocytes # (test code 0.7 See_Comment [Aut omated message] The = Monocytes #) system which generated this result tra nsmitted reference range : <=0.8. The reference r alee was not used to int erpret this result as normal/abnormal . [facility] CenterAyfjhghBAUYBROULN1989-70-11 01:30:00 Test Item Value Reference Range Interpretation Comments Segs (test code = Segs) 81.3 45.0-75.0 [facility] CenterAwbtybcSDMWFQNHNE2035-49-34 01:30:00 Test Item Value Reference Range Interpretation Comments Lymphocytes (test code = Lymphocytes) 11.3 20.0-40.0 [facility] CenterIgfudypRKZMEWDYFH2061-33-78 01:30:00 Test Item Value Reference Range Interpretation Comments Monocytes (test code = Monocytes) 6.3 2.0-12.0 [facility] CenterLbtxhxlDIAJYQKJCC8672-41-82 01:30:00 Test Item Value Reference Range Interpretation Comments Eosinophils (test code = 0.7 See_Comment [A utomated message] The Eosinophils) system which ge nerated this result tra nsmitted reference range : <=4.0. The reference r alee was not used to int erpret this result as normal/abnormal . [facility] CenterQxutwbhUZBYKFONVN4586-75-30 01:30:00 Test Item Value Reference Range Interpretation Comments Basophils (test code = 0.4 See_Comment [Aut omated message] The Basophils) system which ge nerated this result tra nsmitted reference range : <=1.0. The reference r alee was not used to int erpret this result as normal/abnormal . [facility] CenterIglspuxZZKRIZXKGD3673-25-67 01:30:00 Test Item Value Reference Range Interpretation Comments PTT (test code = PTT) 32.2 s 22.9-35.8 [facility] CenterNvojfemTOAQYEGLPL7677-91-82 01:30:00 Test Item Value Reference Range Interpretation Comments INR (test code = INR) 1.08 1 0.85-1.17 [facility] CenterEnssyjtHCPRPVVIAY8526-02-27 01:30:00 Test Item Value Reference Range Interpretation Comments PT (test code = PT) 13.8 s 12.0-14.7 [facility] CenterEulmlnpVPGWBQQYJQ1701-57-60 01:30:00 Test Item Value Reference Range Interpretation Comments Hct (test code = Hct) 30.3 36.0-48.0 [facility] CenterDdvptqqHLRCYJXZXH1229-80-95 01:30:00 Test Item Value Reference Range Interpretation Comments Platelet (test code = Platelet) 372 133-450 [facility] CenterXgffclfNENFZTGBIW8568-05-57 01:30:00 Test Item Value Reference Range Interpretation Comments RDW (test code = RDW) 17.1 11.5-14.5 [facility] CenterKcoyiroHCDKCZHRZF2827-39-03 01:30:00 Test Item Value Reference Range Interpretation Comments MCH (test code = MCH) 22.5 pg 27.0-31.0 [facility] CenterQqcswgrHECLYHRPDE0764-51-16 01:30:00 Test Item Value Reference Range Interpretation Comments MCV (test code = MCV) 70.9 80.0-98.0 [facility] CenterZfatiwrOBDEURJNVK8079-50-22 01:30:00 Test Item Value Reference Range Interpretation Comments MPV (test code = MPV) 8.1 7.4-10.4 [facility] CenterHvwbtmnIJJLQOQVIJ5116-09-88 01:30:00 Test Item Value Reference Range Interpretation Comments MCHC (test code = MCHC) 31.7 32.0-36.0 [facility] CenterIgrphnvDIMKMPTVUB2978-01-47 01:30:00 Test Item Value Reference Range Interpretation Comments Hgb (test code = Hgb) 9.6 12.0-16.0 [facility] CenterLeqjzgmDQHSOKSODH7937-43-36 01:30:00 Test Item Value Reference Range Interpretation Comments WBC (test code = WBC) 11.3 3.7-10.4 [facility] CenterYwdwdggYYCRXQFTIK8201-51-29 01:30:00 Test Item Value Reference Range Interpretation Comments RBC (test code = RBC) 4.27 4.20-5.40 [facility] NSRHFBY9917-52-31 01:30:00 Test Item Value Reference Range Interpretation Comments BNP (test code = BNP) 44 [facility] GLNGJQK2931-18-60 01:30:00 Test Item Value Reference Range Interpretation Comments Total CK (test code = Total CK) 34 12-191 [facility]doc[facility] [id number] 01:30:00 Test Item Value Reference Range Interpretation Comments Troponin-I (test code no gt See_Comment [Auto mated message] The = Troponin-I) system which g enerated this result transmit kenroy reference range : <=0.40. The reference r alee was not used to interpr et this result as elton l/abnormal. [facility] [employer] [id number] 01:30:00 Test Item Value Reference Range Interpretation Comments Lactic Acid Lvl (test code = Lactic 2.8 0.5-2.2 Acid Lvl) [facility] [id number] 01:30:00 Test Item Value Reference Range Interpretation Comments Lipase Lvl (test code = Lipase Lvl) 131 73-393 [facility] [id number] 01:30:00 Test Item Value Reference Range Interpretation Comments Magnesium Lvl (test code = Magnesium 1.8 1.8-2.4 Lvl) [facility] [id number] 01:30:00 Test Item Value Reference Range Interpretation Comments Globulin (test code = Globulin) 4.5 2.7-4.2 [facility] [id number] 01:30:00 Test Item Value Reference Range Interpretation Comments AGAP (test code = AGAP) 12.5 10.0-20.0 [facility] [id number] 01:30:00 Test Item Value Reference Range Interpretation Comments A/G Ratio (test code = A/G Ratio) 0.7 1 0.7-1.6 [facility] [id number] 01:30:00 Test Item Value Reference Range Interpretation Comments B/C Ratio (test code = B/C Ratio) 13 1 6-25 [facility] [id number] 01:30:00 Test Item Value Reference Range Interpretation Comments eGFR (test code = eGFR) 65 [facility]Bus[facility] ERKOS2628-54-06 01:30:00 Test Item Value Reference Range Interpretation Comments Alk Phos (test code = Alk Phos) 127 39-136 [facility] [id number] 01:30:00 Test Item Value Reference Range Interpretation Comments Bili Total (test code = Bili Total) 0.4 0.2-1.3 [place] 200509-05-11 01:30:00 Test Item Value Reference Range Interpretation Comments ALT (test code = ALT) 14 See_Comment [Auto mated message] The system which ge nerated this result transmit kenroy reference range : <=65. The reference range was not used to interpr et this result as elton l/abnormal. [facility]2019-05-11 01:30:00 Test Item Value Reference Range Interpretation Comments AST (test code = AST) 8 See_Comment [Auto mated message] The system which ge nerated this result transmit kenroy reference range : <=37. The reference range was not used to interpr et this result as elton l/abnormal. [place] 200509-05-11 01:30:00 Test Item Value Reference Range Interpretation Comments Albumin Lvl (test code = Albumin Lvl) 3.2 3.5-5.0 [facility]2019-05-11 01:30:00 Test Item Value Reference Range Interpretation Comments Creatinine Lvl (test code = Creatinine 1.09 0.50-1.40 Lvl) [place] 200509-05-11 01:30:00 Test Item Value Reference Range Interpretation Comments Sodium Lvl (test code = Sodium Lvl) 136 135-145 [facility]2019-05-11 01:30:00 Test Item Value Reference Range Interpretation Comments Potassium Lvl (test code = Potassium 3.5 3.5-5.1 Lvl) [place] 200509-05-11 01:30:00 Test Item Value Reference Range Interpretation Comments Chloride Lvl (test code = Chloride Lvl) 100 95-109 [place] 200509-05-11 01:30:00 Test Item Value Reference Range Interpretation Comments Total Protein (test code = Total 7.7 6.4-8.4 Protein) [facility]2019-05-11 01:30:00 Test Item Value Reference Range Interpretation Comments Glucose Lvl (test code = Glucose Lvl) 122 70-99 [facility]2019-05-11 01:30:00 Test Item Value Reference Range Interpretation Comments BUN (test code = BUN) 14 7-22 [facility]2019-05-11 01:30:00 Test Item Value Reference Range Interpretation Comments Calcium Lvl (test code = Calcium Lvl) 9.3 8.5-10.5 [facility]2019-05-11 01:30:00 Test Item Value Reference Range Interpretation Comments CO2 (test code = CO2) 27 24-32 [facility] CenterHmynmrgSZDEFGJMMO5838-01-49 01:30:00 Test Item Value Reference Range Interpretation Comments Eosinophils # (test code 0.1 See_Comment [A utomated message] The = Eosinophils #) system whic h generated this result tra nsmitted reference range : <=0.5. The reference r alee was not used to int erpret this result as normal/abnormal . [facility] CenterHbxqublWCHORBKBWL5020-73-78 01:30:00 Test Item Value Reference Range Interpretation Comments Microcyte (test code = 2+ *ABN*(07/29/18 Microcyte) 8:30 PM) [facility] CenterWbfsreuEOJXQSLFAV1569-51-79 01:30:00 Test Item Value Reference Range Interpretation Comments Neutrophils # (test code = Neutrophils 9.1 1.5-8.1 #) [facility] CenterJwswddmZQJLBYBSCC1935-70-96 01:30:00 Test Item Value Reference Range Interpretation Comments Lymphocytes # (test code = Lymphocytes 1.3 1.0-5.5 #) [facility] CenterLmufdquLVYTHVKCIS0085-05-38 01:30:00 Test Item Value Reference Range Interpretation Comments Monocytes # (test code 0.7 See_Comment [Aut omated message] The = Monocytes #) system which generated this result tra nsmitted reference range : <=0.8. The reference r alee was not used to int erpret this result as normal/abnormal . [facility] CenterMcaazjdOTAWRNAZGA6856-30-51 01:30:00 Test Item Value Reference Range Interpretation Comments Segs (test code = Segs) 81.3 45.0-75.0 [facility] CenterEnlpdfpGYBTIROFRE8169-25-29 01:30:00 Test Item Value Reference Range Interpretation Comments Lymphocytes (test code = Lymphocytes) 11.3 20.0-40.0 [facility] CenterKotawstMHUIOEGUZW6234-12-86 01:30:00 Test Item Value Reference Range Interpretation Comments Monocytes (test code = Monocytes) 6.3 2.0-12.0 [facility] CenterSmtmruiJUHBAIFXEZ0412-31-15 01:30:00 Test Item Value Reference Range Interpretation Comments Eosinophils (test code = 0.7 See_Comment [A utomated message] The Eosinophils) system which ge nerated this result tra nsmitted reference range : <=4.0. The reference r alee was not used to int erpret this result as normal/abnormal . [facility] CenterEmlxsilKUZJOYZLYM6180-95-23 01:30:00 Test Item Value Reference Range Interpretation Comments Basophils (test code = 0.4 See_Comment [Aut omated message] The Basophils) system which ge nerated this result tra nsmitted reference range : <=1.0. The reference r alee was not used to int erpret this result as normal/abnormal . [facility] CenterZrxsbhmANRFHJZREX5818-41-85 01:30:00 Test Item Value Reference Range Interpretation Comments PTT (test code = PTT) 32.2 s 22.9-35.8 [facility] CenterPlvxvgcNXWFTZHMQT8371-48-13 01:30:00 Test Item Value Reference Range Interpretation Comments INR (test code = INR) 1.08 1 0.85-1.17 [facility] CenterTuokxkoUQLDGWLAOT8442-61-51 01:30:00 Test Item Value Reference Range Interpretation Comments PT (test code = PT) 13.8 s 12.0-14.7 [facility] CenterSaembdiWVEQKTYNIA2947-82-07 01:30:00 Test Item Value Reference Range Interpretation Comments Hct (test code = Hct) 30.3 36.0-48.0 [facility] CenterOwdyspbQSEQDQOJRW6670-69-99 01:30:00 Test Item Value Reference Range Interpretation Comments Platelet (test code = Platelet) 372 133-450 [facility] CenterLkbgquiYZIXTQUGKT3317-28-26 01:30:00 Test Item Value Reference Range Interpretation Comments RDW (test code = RDW) 17.1 11.5-14.5 [facility] CenterTymdissAWFIDYWWMB3922-21-21 01:30:00 Test Item Value Reference Range Interpretation Comments MCH (test code = MCH) 22.5 pg 27.0-31.0 [facility] CenterJdpifbrAEJORKIRNA7933-23-93 01:30:00 Test Item Value Reference Range Interpretation Comments MCV (test code = MCV) 70.9 80.0-98.0 [facility] CenterGkisuzuFBKHBUTVYK6802-12-26 01:30:00 Test Item Value Reference Range Interpretation Comments MPV (test code = MPV) 8.1 7.4-10.4 [facility] CenterWqhrlkoUABKYESSVA8358-87-61 01:30:00 Test Item Value Reference Range Interpretation Comments MCHC (test code = MCHC) 31.7 32.0-36.0 [facility] CenterDlxeotcELLCIVDAFZ6303-06-22 01:30:00 Test Item Value Reference Range Interpretation Comments Hgb (test code = Hgb) 9.6 12.0-16.0 [facility] CenterQejzgtrYVDSBLCYRM8187-11-99 01:30:00 Test Item Value Reference Range Interpretation Comments WBC (test code = WBC) 11.3 3.7-10.4 [facility] CenterMglyiqmKDQUQIHQYW2346-77-85 01:30:00 Test Item Value Reference Range Interpretation Comments RBC (test code = RBC) 4.27 4.20-5.40 [facility] [id number] 01:30:00 Test Item Value Reference Range Interpretation Comments BNP (test code = BNP) 44 [facility] [id number] 01:30:00 Test Item Value Reference Range Interpretation Comments Total CK (test code = Total CK) 34 12-191 [facility] EBLJQSZ0232-34-73 01:30:00 Test Item Value Reference Range Interpretation Comments Troponin-I (test code no gt See_Comment [Auto mated message] The = Troponin-I) system which g enerated this result transmit kenroy reference range : <=0.40. The reference r alee was not used to interpr et this result as elton l/abnormal. [facility] [employer] [id number] 01:30:00 Test Item Value Reference Range Interpretation Comments Lactic Acid Lvl (test code = Lactic 2.8 0.5-2.2 Acid Lvl) [facility] [id number] 01:30:00 Test Item Value Reference Range Interpretation Comments Lipase Lvl (test code = Lipase Lvl) 131 73-393 [facility]Bus[facility] [id number] 01:30:00 Test Item Value Reference Range Interpretation Comments Magnesium Lvl (test code = Magnesium 1.8 1.8-2.4 Lvl) [facility] [id number] 01:30:00 Test Item Value Reference Range Interpretation Comments Globulin (test code = Globulin) 4.5 2.7-4.2 [facility]2019-05-11 01:30:00 Test Item Value Reference Range Interpretation Comments AGAP (test code = AGAP) 12.5 10.0-20.0 [facility]2019-05-11 01:30:00 Test Item Value Reference Range Interpretation Comments A/G Ratio (test code = A/G Ratio) 0.7 1 0.7-1.6 [place] 200509-05-11 01:30:00 Test Item Value Reference Range Interpretation Comments B/C Ratio (test code = B/C Ratio) 13 1 6-25 [place] 200509-05-11 01:30:00 Test Item Value Reference Range Interpretation Comments eGFR (test code = eGFR) 65 [facility]2019-05-11 01:30:00 Test Item Value Reference Range Interpretation Comments Alk Phos (test code = Alk Phos) 127 39-136 [facility]2019-05-11 01:30:00 Test Item Value Reference Range Interpretation Comments Bili Total (test code = Bili Total) 0.4 0.2-1.3 [facility]2019-05-11 01:30:00 Test Item Value Reference Range Interpretation Comments ALT (test code = ALT) 14 See_Comment [Auto mated message] The system which ge nerated this result transmit kenroy reference range : <=65. The reference range was not used to interpr et this result as elton l/abnormal. [facility]2019-05-11 01:30:00 Test Item Value Reference Range Interpretation Comments AST (test code = AST) 8 See_Comment [Auto mated message] The system which ge nerated this result transmit kenroy reference range : <=37. The reference range was not used to interpr et this result as elton l/abnormal. [facility]2019-05-11 01:30:00 Test Item Value Reference Range Interpretation Comments Albumin Lvl (test code = Albumin Lvl) 3.2 3.5-5.0 [facility]2019-05-11 01:30:00 Test Item Value Reference Range Interpretation Comments Creatinine Lvl (test code = Creatinine 1.09 0.50-1.40 Lvl) [place] 200509-05-11 01:30:00 Test Item Value Reference Range Interpretation Comments Sodium Lvl (test code = Sodium Lvl) 136 135-145 [facility]2019-05-11 01:30:00 Test Item Value Reference Range Interpretation Comments Potassium Lvl (test code = Potassium 3.5 3.5-5.1 Lvl) [facility]2019-05-11 01:30:00 Test Item Value Reference Range Interpretation Comments Chloride Lvl (test code = Chloride Lvl) 100 95-109 [facility]2019-05-11 01:30:00 Test Item Value Reference Range Interpretation Comments Total Protein (test code = Total 7.7 6.4-8.4 Protein) [facility]2019-05-11 01:30:00 Test Item Value Reference Range Interpretation Comments Glucose Lvl (test code = Glucose Lvl) 122 70-99 [facility]2019-05-11 01:30:00 Test Item Value Reference Range Interpretation Comments BUN (test code = BUN) 14 7-22 [facility]2019-05-11 01:30:00 Test Item Value Reference Range Interpretation Comments Calcium Lvl (test code = Calcium Lvl) 9.3 8.5-10.5 [facility]2019-05-11 01:30:00 Test Item Value Reference Range Interpretation Comments CO2 (test code = CO2) 27 24-32 [facility] CenterDtpukdwGZFKISOVCO3760-26-68 01:30:00 Test Item Value Reference Range Interpretation Comments Eosinophils # (test code 0.1 See_Comment [A utomated message] The = Eosinophils #) system whic h generated this result tra nsmitted reference range : <=0.5. The reference r alee was not used to int erpret this result as normal/abnormal . [facility] CenterRtouqbmODSUWDOPAU6283-27-66 01:30:00 Test Item Value Reference Range Interpretation Comments Microcyte (test code = 2+ *ABN*(07/29/18 Microcyte) 8:30 PM) [facility] CenterVhtjmuaWYXQZPTKQG6832-14-26 01:30:00 Test Item Value Reference Range Interpretation Comments Neutrophils # (test code = Neutrophils 9.1 1.5-8.1 #) [facility] CenterEefiqbsZVSWXBKOSC5535-39-86 01:30:00 Test Item Value Reference Range Interpretation Comments Lymphocytes # (test code = Lymphocytes 1.3 1.0-5.5 #) [facility] CenterPpnarwzDQBNKRCOPO2670-03-24 01:30:00 Test Item Value Reference Range Interpretation Comments Monocytes # (test code 0.7 See_Comment [Aut omated message] The = Monocytes #) system which generated this result tra nsmitted reference range : <=0.8. The reference r alee was not used to int erpret this result as normal/abnormal . [facility] CenterTspbqgwUSWAYCEXSS4020-35-52 01:30:00 Test Item Value Reference Range Interpretation Comments Segs (test code = Segs) 81.3 45.0-75.0 [facility] CenterJifkaqlADBSUOVMUV8161-33-06 01:30:00 Test Item Value Reference Range Interpretation Comments Lymphocytes (test code = Lymphocytes) 11.3 20.0-40.0 [facility] CenterSibmcgcRTQEZDZONH1942-87-28 01:30:00 Test Item Value Reference Range Interpretation Comments Monocytes (test code = Monocytes) 6.3 2.0-12.0 [facility] CenterQclchgfUGIQIWWGVN8491-71-86 01:30:00 Test Item Value Reference Range Interpretation Comments Eosinophils (test code = 0.7 See_Comment [A utomated message] The Eosinophils) system which ge nerated this result tra nsmitted reference range : <=4.0. The reference r alee was not used to int erpret this result as normal/abnormal . [facility] CenterIugpdscCSHDBLTRQF5163-03-41 01:30:00 Test Item Value Reference Range Interpretation Comments Basophils (test code = 0.4 See_Comment [Aut omated message] The Basophils) system which ge nerated this result tra nsmitted reference range : <=1.0. The reference r alee was not used to int erpret this result as normal/abnormal . [facility] CenterJawbydiYENTNTYZIL0391-84-02 01:30:00 Test Item Value Reference Range Interpretation Comments PTT (test code = PTT) 32.2 s 22.9-35.8 [facility] CenterGvrbpxdBYHMFUGNWD1547-02-96 01:30:00 Test Item Value Reference Range Interpretation Comments INR (test code = INR) 1.08 1 0.85-1.17 [facility] CenterXfjxyoqOXWHZTUHEF1131-50-95:30:00 Test Item Value Reference Range Interpretation Comments PT (test code = PT) 13.8 s 12.0-14.7 [facility] HospitalIbtqsaqACBUFVWXEB5407-38-84 01:30:00 Test Item Value Reference Range Interpretation Comments Hct (test code = Hct) 30.3 36.0-48.0 [facility]CeqtboeWCRKVDNBXG7825-27-26 01:30:00 Test Item Value Reference Range Interpretation Comments Platelet (test code = Platelet) 372 133-450 [facility] CenterHltujzsLRGOUPXTGQ7908-39-49 01:30:00 Test Item Value Reference Range Interpretation Comments RDW (test code = RDW) 17.1 11.5-14.5 [facility] HospitalFiywnrcGENVLIZUXG5545-57-84 01:30:00 Test Item Value Reference Range Interpretation Comments MCH (test code = MCH) 22.5 pg 27.0-31.0 [facility] CenterTstdrbbTIDIZFMSSC4754-18-98 01:30:00 Test Item Value Reference Range Interpretation Comments MCV (test code = MCV) 70.9 80.0-98.0 [facility] CenterYqvubueGQGLXFBILN1224-49-76 01:30:00 Test Item Value Reference Range Interpretation Comments MPV (test code = MPV) 8.1 7.4-10.4 [facility] HospitalYjgtdwmPRKQEKHJUE0863-32-21 01:30:00 Test Item Value Reference Range Interpretation Comments MCHC (test code = MCHC) 31.7 32.0-36.0 [facility] CenterAwvhjkbETYWOPILIG7834-27-40 01:30:00 Test Item Value Reference Range Interpretation Comments Hgb (test code = Hgb) 9.6 12.0-16.0 [facility] HospitalXeuggpiBJBRQGJWVB1210-76-37 01:30:00 Test Item Value Reference Range Interpretation Comments WBC (test code = WBC) 11.3 3.7-10.4 [facility] HospitalEysqhgqNLQRIQAQAI1725-78-87 01:30:00 Test Item Value Reference Range Interpretation Comments RBC (test code = RBC) 4.27 4.20-5.40 [facility]2019-05-11 01:21:00 Test Item Value Reference Range Interpretation Comments Procalcitonin Lvl (test 0.08 See_Comment [Au tomated message] code = Procalcitonin Lvl) Th e system which generated this result transmitted ref erence range: <=0.10. The reference range was not used to interpr et this result as normal/abnormal . [place] [address]2019-05-11 01:21:00 Test Item Value Reference Range Interpretation Comments hCG Tot (test code = hCG Tot) no [facility]2019-05-11 01:21:00 Test Item Value Reference Range Interpretation Comments Procalcitonin Lvl (test 0.08 See_Comment [Au tomated message] code = Procalcitonin Lvl) Th e system which generated this result transmitted ref erence range: <=0.10. The reference range was not used to interpr et this result as normal/abnormal . [place] [address]2019-05-11 01:21:00 Test Item Value Reference Range Interpretation Comments hCG Tot (test code = hCG Tot) no [facility]2019-05-11 01:21:00 Test Item Value Reference Range Interpretation Comments Procalcitonin Lvl (test 0.08 See_Comment [Au tomated message] code = Procalcitonin Lvl) Th e system which generated this result transmitted ref erence range: <=0.10. The reference range was not used to interpr et this result as normal/abnormal . [place] [address]2019-05-11 01:21:00 Test Item Value Reference Range Interpretation Comments hCG Tot (test code = hCG Tot) no [facility]2019-05-11 01:21:00 Test Item Value Reference Range Interpretation Comments Procalcitonin Lvl (test 0.08 See_Comment [Au tomated message] code = Procalcitonin Lvl) Th e system which generated this result transmitted ref erence range: <=0.10. The reference range was not used to interpr et this result as normal/abnormal . [place] [address]2019-05-11 01:21:00 Test Item Value Reference Range Interpretation Comments hCG Tot (test code = hCG Tot) no [facility]2019-05-11 01:21:00 Test Item Value Reference Range Interpretation Comments Procalcitonin Lvl (test 0.08 See_Comment [Au tomated message] code = Procalcitonin Lvl) Th e system which generated this result transmitted ref erence range: <=0.10. The reference range was not used to interpr et this result as normal/abnormal . [place] [address]2019-05-11 01:21:00 Test Item Value Reference Range Interpretation Comments hCG Tot (test code = hCG Tot) no [facility]2019-05-11 01:21:00 Test Item Value Reference Range Interpretation Comments Procalcitonin Lvl (test 0.08 See_Comment [Au tomated message] code = Procalcitonin Lvl) Th e system which generated this result transmitted ref erence range: <=0.10. The reference range was not used to interpr et this result as normal/abnormal . [place] [address]2019-05-11 01:21:00 Test Item Value Reference Range Interpretation Comments hCG Tot (test code = hCG Tot) no [facility]2019-05-11 01:21:00 Test Item Value Reference Range Interpretation Comments Procalcitonin Lvl (test 0.08 See_Comment [Au tomated message] code = Procalcitonin Lvl) Th e system which generated this result transmitted ref erence range: <=0.10. The reference range was not used to interpr et this result as normal/abnormal . [place] [address]2019-05-11 01:21:00 Test Item Value Reference Range Interpretation Comments hCG Tot (test code = hCG Tot) no [facility]2019-05-11 01:21:00 Test Item Value Reference Range Interpretation Comments Procalcitonin Lvl (test 0.08 See_Comment [Au tomated message] code = Procalcitonin Lvl) Th e system which generated this result transmitted ref erence range: <=0.10. The reference range was not used to interpr et this result as normal/abnormal . [place] [address]2019-05-11 01:21:00 Test Item Value Reference Range Interpretation Comments hCG Tot (test code = hCG Tot) no [facility] W/PLT COUNT & AUTO [id number] 14:09:00 Test Item Value Reference Range Interpretation [...] (test code = Normal 762) BASIC METABOLIC [id number] 07:38:00 Test Item Value Reference Range Interpretation [...] NOT APPLICABLE FOR DIALYSIS PATIEN TS. URINE [id number] 12:16:00 Test Item Value Reference Range Interpretation [...] Sulfamethoxazole (test code = 47) BASIC METABOLIC [id number] 06:39:00 Test Item Value Reference Range Interpretation [...] PATIEN TS. CBC W/PLT COUNT & AUTO [id number] 06:24:00 Test Item Value Reference Range Interpretation [...] L 0.00-0.20 (test code = 417) 0.00HEMOGLOBIN [id number] 09:41:00 Test Item Value Reference Range Interpretation Comments HEMOGLOBIN A1C (BEAKER) (test code = 5.9 % 4.3-6.1 368) BASIC METABOLIC [id number] 07:57:00 Test Item Value Reference Range Interpretation [...] PATIEN TS. CBC W/PLT COUNT & AUTO [id number] 06:57:00 Test Item Value Reference Range Interpretation [...] (BEAKER) (test code = 417) 0.00PREGNANCY SCREEN, [id number] 15:12:00 Test Item Value Reference Range Interpretation Comments TEST URINE (BEAKER) (test Negative code = 583) URINALYSIS W/ [id number] 15:12:00 Test Item Value Reference Range Interpretation [...] 516) SOURCE(BEAKER) (test code = Urine, Voided 4746) BASIC METABOLIC [id number] 14:18:00 Test Item Value Reference Range Interpretation [...] m DATA TO CALCULA TE ESTIMATED GFR. [id number] 13:51:00 Test Item Value Reference Range Interpretation [...] mechanical heart valves.CBC W/PLT COUNT & AUTO [id number] 13:38:00 Test Item Value Reference Range Interpretation [...] Notes Date/Time Note Provider Source 2020-06-03 11:21:00-00:00 [facility] ([facility]) Cardiology Progress Note REPORT#:[id number] REPORT STATUS: Signed DATE:06/03/20 TIME: 1121 PATIENT: LEIGH FRYE UNIT #: [id number] ROOM/BED: [place] [address] : 80 AGE: 40 SEX: F ATTEND: Kavitha Llamas MD ADM AUTHOR: Raquel Merchant NP * ALL edits or amendments must be made on the el [employer]ronic/computer document * Subjective Chief Complaint: no chest pain Objective General VS/I O: 24 hour I O ending at 0700: 06/03 0700 03/14 1900 Intake Total 600 Output Total Balance [...] PO Atorvastatin Calcium 40 MG BEDTIME PO [employer]/[place] Balsam/Trypsin 1 APPLIC BEDT ROXANA TOPICAL Montelukast [...] No significant valve disease identified by do jeny. Assessment and plan:his is a 40-year-old patient with past medical history of diastolic CHF, chronic lymphedema, A. fib on Araceli barbara, hyperlipidemia, hypertension, diabetes mellitus, obesity, pititu martha adenoma came with chest pain . 1. Chest pain are typical , non cardiac etiology , last cath reviwed from from [facility] 08/18 2019 showed normal coronaries. EKG shows normal sinus rhythm no acute ST-T changes, CTA chest negative for PE troponin s x2 are negative SC is ruled out. Echocardiogram showed normal LV function. 2. History of A. fib sinus rhythm on evaluation, we will continue Eliquis 3. Chronic lymphedema will continue diuretics 4. Hypertension we will resume home medication Okay to DC from cardiology standpoint POC discussed with Dr. Rivera Thank you very much for the consult will follow with you Electronically Signed by Raquel Merchant NP on at 1123 RPT #:[id number] END OF REPORT 2020-06-03 11:21:00-00:00 [facility] ([facility] Cardiology Progress Note REPORT#:[id number] REPORT STATUS: Signed DATE:06/03/20 TIME: 112 PATIENT: LEIGH FRYE UNIT #: [id number] ROOM/BED: [place] [address] : 80 AGE: 40 SEX: F ATTEND: Kavitha Llamas MD ADM AUTHOR: Raquel Merchant NP * ALL edits or amendments must be made on the el [employer]/computer document * Raquel Merchant 06/03/20 1121: Subjective Chief Complaint: no [...] PO Atorvastatin Calcium 40 MG BEDTIME PO [employer]/[place] Balsam/Trypsin 1 APPLIC BEDT ROXANA TOPICAL Montelukast [...] barbara, hyperlipidemia, hypertension, diabetes mellitus, obesity, pititu amrtha adenoma came with chest pain . 1. Chest pain are typical , non cardiac etiology , last cath reviwed from from [facility] 08/18 2019 showed normal coronaries. EKG shows normal sinus rhythm no acute ST-T changes, CTA chest negative for PE troponin s x2 are negative SC is ruled out. Echocardiogram showed normal LV [...] plan. I agree with the note by Raquel Merchant NP. Electronically Signed by Raquel Merchant NP on at 1123 RPT #:[id number] END OF REPORT 2020-06-03 11:21:00-00:00 [facility] ([facility] Cardiology Progress Note REPORT#:[id number] REPORT STATUS: Signed DATE:06/03/20 TIME: 112 PATIENT: LEIGH FRYE UNIT #: [id number] ROOM/BED: [place] [address] : 80 AGE: 40 SEX: F ATTEND: Kavitha Llamas MD ADM AUTHOR: Raquel Merchant NP * ALL edits or amendments must be made on the el [employer]/computer document * Raquel Merchant 06/03/20 1121: Subjective Chief Complaint: no [...] PO Atorvastatin Calcium 40 MG BEDTIME PO [employer]/[place] Balsam/Trypsin 1 APPLIC BEDT ROXANA TOPICAL Montelukast [...] etiology , last cath reviwed from from [facility] 08/18 2019 showed normal coronaries. EKG shows normal sinus rhythm no acute ST-T changes, CTA chest negative for PE troponin s x2 are negative SC is ruled out. Echocardiogram showed normal LV [...] plan. I agree with the note by Raquel Merchant NP. Electronically Signed by Raquel Merchant NP on at 1123 at 1604 RPT #:[id number] END OF REPORT 2020-06-02 13:26:00-00:00 [facility] ([facility] Cardiology Progress Note REPORT#:[id number] REPORT STATUS: Signed DATE:06/02/20 TIME: 1326 PATIENT: LEIGH FRYE UNIT #: [id number] ROOM/BED: [facility] : 80 AGE: 40 SEX: F ATTEND: Kavitha Llamas MD ADM AUTHOR: Walt Lewis * ALL edits or amendments must be made on the el [employer]/computer document * Subjective Chief Complaint: no chest [...] PO Atorvastatin Calcium 40 MG BEDTIME PO [employer]/[place] Balsam/Trypsin 1 APPLIC BEDT ROXANA TOPICAL Montelukast [...] Tests 06/02 06/02 06/02 06/01 06/01 1113 0730 0656 1955 1604 Chemistry Sodium (134.0 - [...] for PE troponins x2 are negat thomas SC is ruled out. Will review [facility] records she reports she had a normal left heart cath 2019. We will get an echocardiogram to check LV function. 2. History of A. fib sinus rhythm on evaluation, we will continue Eliquis 3. Chronic lymphedema will continue diuretics 4. Hypertension we will resume home medication Thank you very much for the consult will follow with you at 2007 RPT #:[id number] END OF REPORT 2020-06-02 13:06:00-00:00 [facility] ([facility]) Hospitalist Progress Note REPORT#:[id number] REPORT STATUS: Signed DATE:06/02/20 TIME: 1306 PATIENT: LEIGH FRYE UNIT #: [id number] ROOM/BED: [place] [address] : 80 AGE: 40 SEX: F ATTEND: Kavitha Llamas MD ADM AUTHOR: Rosa Llamas MD * ALL edits or amendments must be made on the [employer]/computer document * Subjective Chief Complaint: Wants to [...] 87 18 144/88 106.8 96 Room air 03/13 1627 37.0 93 18 134/87 102.6 95 [...] dist ress Head/Eyes: atraumatic, normocephalic, PERRL, EO SC ENT: normal ear left, normal ear right, [...] full range of motion, normal i nspection 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 alert, oriented X 3, CNII-XII intact Skin: [...] Rosa Llamas MD on at 1413 RPT #:[id number] END OF REPORT 2020-06-01 16:16:00-00:00 [facility] ([facility] Cardiology Progress Note REPORT#:[id number] REPORT STATUS: Signed DATE:06/01/20 TIME: 1616 PATIENT: LEIGH FRYE UNIT #: [id number] ROOM/BED: [place] [address] : 80 AGE: 40 SEX: F ATTEND: Kavitha Llamas MD ADM AUTHOR: Walt Lewis * ALL edits or amendments must be made on the [employer] document * Subjective Chief Complaint: no chest pain Objective General VS/I O: 24 hour I O ending at 0700: 06/01 0700 05/31 1900 Intake Total 240 Output Total Balance 240 Intake, Oral 240 Number Voids 1 Vital Signs: Date Time Temp Pulse Resp B/P B/P Pulse O2 O2 F low FiO2 Mean Ox Delivery Rate 06/01 1115 [...] PO Atorvastatin Calcium 40 MG BEDTIME PO [employer]/[place] Balsam/Trypsin 1 APPLIC BEDT ROXANA TOPICAL Montelukast [...] % (Auto) (23.0 - 38.0 %) 27.2 Ballard % (Auto) (1.0 - 10.0 %) 6.1 Eos % (Auto) (1.0 - 5.0 %) 4.7 Baso % (Auto) (0.0 - 1.0 %) 0.5 Neut # (Auto) (2.4 - 6.3 K/mm3) 3.8 Lymph # (Auto) (1.2 - 4.0 K/mm3) 1.7 Ballard # (Auto) (0.0 - 0.6 K/mm3) 0.4 [...] for PE troponins x2 are negat thomas SC is ruled out. Will review [facility] records she reports she had a normal left heart cath 2019. We will get an echocardiogram to check LV function. 2. History of A. fib sinus rhythm on evaluation, we will continue Eliquis 3. Chronic lymphedema will continue diuretics 4. Hypertension we will resume home medication Thank you very much for the consult will follow with you at 2007 RPT #:[id number] END OF REPORT 2020-06-01 08:25:00-00:00 [facility] ([facility]) Hospitalist Progress Note REPORT#:[id number] REPORT STATUS: Signed DATE:06/01/20 TIME: 824 PATIENT: LEIGH FRYE UNIT #: [id number] ROOM/BED: [place] [address] : 80 AGE: 40 SEX: F ATTEND: Kavitha Llamas MD ADM AUTHOR: Rosa Llamas MD * ALL edits or amendments must be made on the [employer]/computer document * Subjective Chief Complaint: Continues to [...] 05/31 05/31 05/31 06/01 1037 1037 1212 7 0620 Chemistry Sodium (134.0 - 147.0 mmol/l) [...] <0.02 TSH (0.47 - 5.01 IU/ML) 2.48 06/01 06 Chemistry Magnesium (1.8 - 2.4 mg/dl) 1.8 [...] % (Auto) (23.0 - 38.0 %) 27.2 Ballard % (Auto) (1.0 - 10.0 %) 6.1 Eos % (Auto) (1.0 - 5.0 %) 4.7 Baso % (Auto) (0.0 - 1.0 %) 0.5 Neut # (Auto) (2.4 - 6.3 K/mm3) 3.8 Lymph # (Auto) (1.2 - 4.0 K/mm3) 1.7 Ballard # (Auto) (0.0 - 0.6 K/mm3) 0.4 [...] dist ress Head/Eyes: atraumatic, normocephalic, PERRL, EO SC ENT: normal ear left, normal ear right, [...] full range of motion, normal i nspection 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 alert, oriented X 3, CNII-XII intact Skin: [...] Rosa Llamas MD on at 0828 RPT #:[id number] END OF REPORT 2020-05-31 17:25:00-00:00 [facility] ([facility]) Wound Care Consultation Note REPORT#:[id number] REPORT STATUS: Signed DATE:05/31/20 TIME: 1724 PATIENT: LEIGH FRYE UNIT #: [id number] ROOM/BED: [place] [address] : 80 AGE: 40 SEX: F ATTEND: Kavitha Llamas MD ADM AUTHOR: Em Morales NP * ALL edits or amendments must be made on the [employer]/computer document * History of Present Illness Requesting Clinician: Dr Llamas Reason for consult: Wound care consulted for BLE lymphadema HPI: 40 y/o female re-admitted to hospital 05/31/20 wi th fluid overload and psych issues. She says she was jus t released from two months stay at [facility] psych [facility] for suicidal episode and no one took care o f her legs are swelling. She says she is hoemless and was sent to a [facility] in [place] yesterday, but didn't have any medicines and [...] 24 hour I O ending at 0700: 03 1900 05/31 0700 Intake Total Output Total Balance Patient 513 lb Weight Weight Stated/Reported Measurement Method General appearance: obese, alert, awake Cardiovascular: pedal pulses present, pedal dilcia a Respiratory: on oxygen, decreased breath sounds Extremities: decreased range of motion, edema Musculoskeletal: decreased ROM 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: alert, normal speech Skin: there are a [...] Carbon Dioxide (21.0 - 33.0 mmol/l) 29.1 03 1037 Anion Gap (0 - 20) 11.3 03/ 1037 BUN (7.0 - 18.0 mg/dl) 11 03 1037 Creatinine (0.60 - 1.30 mg/dL) 0.55 L 03/ 103 7 Est GFR ( Amer) (115 - 127 mL/min) 157 H 03 1037 Est GFR (Non-Af Amer) (95 - 105 mL/min) 129 H 0 12 1037 Glucose (70.0 - 110.0 mg/dl) 226 H 05/31 1037 POC Glucose (70 - 110 mg/dL) 194 H 03 1212 Hemoglobin A1c (4.8 - 6.0 %A1C) 8.6 H 05/31 103 7 Estim Average Glucose (MG/DL) 200 03 1037 Calcium (8.0 - 10.5 mg/dl) 8.6 03 1037 Total Creatine Kinase (21 - 215 Units/L) 108 03 / 1037 Troponin I (0.00 - 0.06 NG/ML) <0.02 05/31 103 7 B-Natriuretic Peptide (5 - 100 PG/ML) 36.1 03/ 2 0029 TSH (0.47 - 5.01 IU/ML) 2.48 / 1037 Coagulation INR (0.89 - 1.14) 1.1 05/31 0029 PTT ([place]) (25.86 - 36.07 SECONDS) 33.60 / 0029 PT Patient/Control Mix (9.9 - 12.8 SECONDS) 12. 4 05/31 0029 D-Dimer (0 - 500 ng/mLFEU) 868 *H 05/31 0029 Hematology WBC (4.5 - 11.0 K/mm3) 7.1 05/31 0029 RBC (3.80 - 5.20 M/mm3) 4.07 05/31 0029 Hgb (12.0 - 16.0 gm/dL) 11.8 L 05/31 0029 Hct (36.0 - 48.0 %) 35.7 L 05/31 0029 MCV (82.0 - 99.0 UM3) 87.7 05/31 0029 MCH (25.5 - 32.5 UUG) 29.0 05/31 0029 MCHC (29.0 - 35.5 gm/dL) 33.1 03/12 0029 RDW (11.5 - 15.0 %) 13.3 03/ 0029 Plt Count (150 - 400 K/mm3) 223 03/ 0029 MPV (7.4 - 10.4 fl) 9.8 03/ 0029 Neut % (Auto) (49.0 - 76.0 %) 62.1 03/12 0029 Lymph % (Auto) (23.0 - 38.0 %) 27.2 03/ 0029 Ballard % (Auto) (1.0 - 10.0 %) 6.1 03/12 0029 Eos % (Auto) (1.0 - 5.0 %) 3.3 03/ 0029 Baso % (Auto) (0.0 - 1.0 %) 0.7 03/ 0029 Neut # (Auto) (2.4 - 6.3 K/mm3) 4.4 03/ 0029 Lymph # (Auto) (1.2 - 4.0 K/mm3) 1.9 03/ 0029 Ballard # (Auto) (0.0 - 0.6 K/mm3) 0.4 03/ 0029 Eos # (Auto) (0.0 - 0.7 K/MM3) 0.2 03/ 0029 Baso # (Auto) (0.0 - 0.2 K/mm3) 0.1 03/ 0029 Absolute Nucleated RBC (0.00 - 0.01 X10 3uL) 0. 00 03/ 0029 Immature Gran % (0.0 - 0.4 %) 0.6 H / 0029 Nucleated RBC % (0.0 - 0.1 %) [...] Em Morales NP on 06/01 at 0711 RPT #:[id number] END OF REPORT 2020-05-31 14:31:00-00:00 [id number] [facility] and [place] [address] [address] [place] [address] PATIENT NAME: LEIGH FRYE ADMIT DATE: 05/31/20 ACCOUNT NO: [id number] [facility] AGE: 40 REPORT TYPE: ECHOCARDIOGRAM REPORT DATE OF : 80 SEX: F ADMITTING PHYSICIAN:Rosa Llaams MD ATTENDING PHYSICIAN:Rosa Llamas MD *[place] [address] [facility] [place] [address] Transthoracic Echocardiogram Patient: Leigh Frye Study Date: 05/31/2020 BP: 145 / 77 Location: SD CMN URN: [id number] 2342 : 1980 Age: 40 Height: 72 in / 182.9 cm Gender: F Weight: 511 .9 lb / 232.7 kg BMI/BSA: 69.6 kg/m 2 / 3.18 m 2 *Ordering Physician: * Raquel Merchant *Interpreting Physician: * Carmela Junior *Sheet Metal Mechanic: * Rose Pollard [facility], [facility] Indications: Chest Pain, unspecified. Study data: Transthoracic echocardiogram. Proced ure: Transthoracic echocardiography was performed. Image quality wa s suboptimal. The study was technically limited due to body habitus. Int ravenous contrast (Definity) was administered. Complete 2D, comple te spectral Doppler, and color Doppler. Location: Emergency [facility] Patient status: Inpatient. Patient room number: 17. Findings Left ventricle: The cavity size is mildly dilate d. Wall thickness is moderately increased. Systolic function is etlon l. The estimated ejection fraction is 55-60%. [...] Area 3.5 cm 2 3.4 ---- Peak chadnan, 1.11 m/sec 1.35 ---- S Mean chandan, [...] ---- ratio Pulmonic valve Value 08/26/2018 Ref [place] v, ED 0.86 m/sec 0.67 ---- Conclusions [...] 1431 PATIENT NAME: LEIGH FRYE 2020-05-31 11:57:00-00:00 [facility] ([facility] Cardiology Consultation REPORT#:[id number] REPORT STATUS: Signed DATE:05/31/20 TIME: 1157 PATIENT: LEIGH FRYE UNIT #: [id number] ROOM/BED: [place] [address] : 80 AGE: 40 SEX: F ATTEND: Kavitha Llamas MD ADM AUTHOR: Mayur,Raquel TILE SPRAYER * ALL edits or amendments must be made on the [employer]/computer document * Raquel Merchant 05/31/20 1157: History of Present Illness [...] dizziness, fevers, wheezing. Patient was discharged from [facility] yesterday where she spent 2 months for her anxiety bipolar disorder. She reports she had normal Left heart catheteriz ation on 05/2019 at [facility]. Work-up in ER showed stable blood pressure, [...] distress Abdomen: soft, non-tender Genitourinary: no rubin 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: alert, oriented X 3, normal speech Psychiatry: [...] % (Auto) (23.0 - 38.0 %) 27.2 Ballard % (Auto) (1.0 - 10.0 %) 6.1 Eos % (Auto) (1.0 - 5.0 %) 3.3 Baso % (Auto) (0.0 - 1.0 %) 0.7 Neut # (Auto) (2.4 - 6.3 K/mm3) 4.4 Lymph # (Auto) (1.2 - 4.0 K/mm3) 1.9 Ballard # (Auto) (0.0 - 0.6 K/mm3) 0.4 [...] No evidence of pulmonary embolus. Impression By: [email or web address] - Ko Friedman M.D. Diagnosis, Assessment Plan [...] for PE troponins x2 are negat thomas SC is ruled out. Will review [facility] records she reports she had a normal [...] nola. I agree with the note by Raquel Merchant NP. at 1713 Electronically Signed by Raquel Merchant NP on at 1706 RPT #:[id number] END OF REPORT 2020-05-31 11:57:00-00:00 [facility] ([facility] Cardiology Consultation REPORT#:[id number] REPORT STATUS: Signed DATE:05/31/20 TIME: 1157 PATIENT: LEIGH FRYE UNIT #: [id number] ROOM/BED: [place] [address] : 80 AGE: 40 SEX: F ATTEND: Kavitha Llamas MD ADM AUTHOR: Raquel Merchant TILE SPRAYER * ALL edits or amendments must be made on the [employer]/computer document * Raquel Merchant 05/31/20 1157: History of Present Illness [...] dizziness, fevers, wheezing. Patient was discharged from [facility] yesterday where she spent 2 months for her anxiety bipolar disorder. She reports she had normal Left heart catheteriz ation on 05/2019 at [facility]. Work-up in ER showed stable blood pressure, [...] no distress Abdomen: soft, non-tender Genitourinary: no urbin 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: alert, oriented X 3, normal speech Psychiatry: [...] % (Auto) (23.0 - 38.0 %) 27.2 Ballard % (Auto) (1.0 - 10.0 %) 6.1 Eos % (Auto) (1.0 - 5.0 %) 3.3 Baso % (Auto) (0.0 - 1.0 %) 0.7 Neut # (Auto) (2.4 - 6.3 K/mm3) 4.4 Lymph # (Auto) (1.2 - 4.0 K/mm3) 1.9 Ballard # (Auto) (0.0 - 0.6 K/mm3) 0.4 [...] for PE troponins x2 are negat thomas SC is ruled out. Will review [facility] records she reports she had a normal [...] nola. I agree with the note by Raquel Merchant NP. at 1713 RPT #:[id number] END OF REPORT 2020-05-31 10:54:00-00:00 [facility] ([facility] Hospitalist History Physical REPORT#:[id number] REPORT STATUS: Signed DATE:05/31/20 TIME: 1054 PATIENT: LEIGH FRYE UNIT #: [id number] ROOM/BED: [place] : 80 AGE: 40 SEX: F ATTEND: Kavitha Llamas MD ADM AUTHOR: Rosa Llamas MD * ALL edits or amendments must be made on the el [employer]/computer document * History of Present Illness HPI Chief complaint: Chest pain PCP: PCP: No Primary or Family Physician HPI: 40-year-old patient presented to the [facility] with left-sided sharp 8/10 chest pain without radiation. This was accompanied wit h leg edema and shortness of breath. Patient denies nausea, vomiting, heartburn, orthopnea, PND, dizziness, fevers, wheezing. Patient was discharged from [facility] yesterday where she spent 2 months for [...] Resp B/P B/P Mean Pulse Ox FiO2 05/30-05/31 36.9-37.3 93-97 20-23 145-149/77-97 99-114 98-100 [...] % (Auto) (23.0 - 38.0 %) 27.2 Ballard % (Auto) (1.0 - 10.0 %) 6.1 Eos % (Auto) (1.0 - 5.0 %) 3.3 Baso % (Auto) (0.0 - 1.0 %) 0.7 Neut # (Auto) (2.4 - 6.3 K/mm3) 4.4 Lymph # (Auto) (1.2 - 4.0 K/mm3) 1.9 Ballard # (Auto) (0.0 - 0.6 K/mm3) 0.4 [...] dist ress Head/Eyes: atraumatic, normocephalic, PERRL, EO SC ENT: normal ear left, normal ear right, [...] full range of motion, normal i nspection 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 alert, oriented X 3, CNII-XII intact Skin: dry, intact Psychiatry: normal affect, normal judgment/insi ght, normal mood Diagnosis, Assessment Plan Free Text A P: Chest pain Atypical First troponin negative CTA chest negative Cardiology consulted, echo pending Leg edema ?Diastolic CHF With component of lymphedema IV Lasix, home meds, fluid restriction, consult Ms. Em Morales for lymphedema Hyponatremia Add IV Lasix Hypokalemia Replace Diabetes mellitus type 2 Sliding scale insulin History of PE on Eliquis, depression, anxiety, P TSD, A. fib Electronically Signed by Rosa Llmaas MD on at 1058 RPT #:[id number] END OF REPORT 2020-05-30 23:47:00-00:00 [facility] ([facility]) EMERGENCY PROVIDER REPORT REPORT#:[id number] REPORT STATUS: Signed DATE:05/30/20 TIME: 2346 PATIENT: LEIGH FRYE UNIT #: [id number] ROOM/BED: AGE: 40 SEX: F PCP PHYS: No Primary or Family Ph ysician SERVICE AUTHOR: Carl Lawson MD * ALL edits or amendments must be made on the [employer]/computer document * HPI-Chest Pain 40 and Over Free Text HPI Notes Free Text HPI Notes 40-year-old female with history of CHF, A. fib o n Eliquis, previous PE, lymphedema, brought in by EMS for chest pain. Ermias sparks does report previous history of SC. The patient reports 1 hour prior to [...] General Confirmed Patient Yes Initial Greet Date/Time 05/30/20 1212 Presentation Chief Complaint Chest pain Sudden in [...] 1 TAB PO DAILY #90 TABS Prov: 07/15/19 OMEPRAZOLE ER (PriLOSEC) 40 MG PO DAILY [...] Diagnostics Lab Results Interpretation Results Laboratory Tests 05/31/20 0029: [Embedded Image Not Available] Laboratory Tests: 05/31 05/31 0029 0029 Chemistry [...] % (Auto) (23.0 - 38.0 %) 27.2 Ballard % (Auto) (1.0 - 10.0 %) 6.1 Eos % (Auto) (1.0 - 5.0 %) 3.3 Baso % (Auto) (0.0 - 1.0 %) 0.7 Neut # (Auto) (2.4 - 6.3 K/mm3) 4.4 Lymph # (Auto) (1.2 - 4.0 K/mm3) 1.9 Ballard # (Auto) (0.0 - 0.6 K/mm3) 0.4 [...] Report Impression - Status: SIGNED Entered: 05/31/2020 010 IMPRESSION: No radiographic evidence of acute cardiopulmonar y process. Impression By: [email or web address] - Tanner Vaz M.D. CAT SCAN - [...] 100 On: Room air Interpretation Interpreted by me, Pulse oximetr y normal Time 2346 ECG [...] risk factors including reported history of previous SC, will admit the patient f or ACS rule out. Patient verbalized understanding and is agreeable to rosa isela n. ED Course Medication(s) Ordered Medication(s) Ordered: Blood Formation,Coagulation Sig/Roshan Start time Last Medication Dose Route Stop Time Status Admin Apixaban 5 MG NOW ONE 05/31 199 UNV PO 05/31 0201 Cardiovascular Drugs Sig/Roshan [...] Q6H PRN PRN 05/31 0200 UNV IV 06/02 55 Hormones And Synthetic Substit Sig/Roshan Start time Last Medication Dose Route Stop Time Status Admin Insulin Human Lispro See Dose AC HS 05/31 0730 UNV Insts (1) SUBQ 06/02 55 Glucagon 1 MG ASDIR PRN 05/31 020 UNV IM 06/02 55 Dose Instructions: (1)Insulin Human Lispro: SLIDING SCALE [...] 97 05/30 2346 Resp 20 05/30 2346 All vital signs available at the time of this en try have been reviewed. Condition Stable Clinical Impression Clinical Impression Primary Impression: Chest pain Secondary Impressions: Lymphedema, SOB (shortnes s of breath) Disposition Decision Admit Admit Physician Name Rosa Llamas MD Admit Physician Hospitalist Request Time 0159 Request Date 05/31/20 )( Admission Accepts Yes )( Accepted Time 0159 )( Accepted Date 05/31/20 Discharge/Care Plan Admit [...] by Carl Lawson MD on at 0203 [facility] #:[id number] END OF REPORT 2018-11-19 19:41:00-00:00 [id number] [facility] [address] [place] [address] PATIENT NAME: LEIGH FRYE ADMIT DATE: 10/01/18 ACCOUNT NO: [id number] ROOM NO: Z.530 AGE: 38 REPORT TYPE: DISCHARGE SUMMARY REPORT SEX: F ADMITTING PHYSICIAN:Jani Mckoy MD ATTENDING PHYSICIAN:Jani Mckoy MD ADMISSION DATE: 10/01/2018 DISCHARGE DATE: 10/03/2018 FINAL DIAGNOSES: Rhinorrhea not due to the CSF, postop transsphenoidal resection, pituitary adenoma, Eveline's syndrome, diabetes mellitus, 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 DIGITAL LEARNING PLATFORMS MANAGER: Dr. Viera. 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 Dictated By: Jani Mckoy MD WT: DS:GISSELLE/AJMSU/JERSON Conf#: [id number]/DID#: [id number] Authenticated by Jani Mckoy MD On 05:15:46 PM at 1716 PATIENT NAME: LEIGH FRYE 2018-10-19 05:18:00-00:00 [phone] [place] [address] PATIENT NAME: LEIGH FRYE ADMIT DATE: 08/25/18 ACCOUNT NO: [id number] ROOM NO: Z.504 AGE: 38 REPORT TYPE: [...] kidney stones, history of gastric band surgery. DIGITAL LEARNING PLATFORMS MANAGER: Dr. Viera, neurosurgery. PROCEDURES: Reduction of pituitary [...] headaches diagnosed to have pituitary mass at [facility], referred to Dr. Viera for surgical intervention. [...] patient is ambulatory, she was advised to [facility] follow up on parathyroid nodule and further studies, CAT scan of the abd omen for pancreatic eval as well as adrenal adenoma work in progress, outpa tient followup. PATIENT NAME: LEIGH FRYE Maximiliano will see her in office for deciding when she can return to [facility]. Dictated By: Jani Mckoy MD WT: DS:GISSELLE/YONATHAN/JERSON Conf#: [id number]/DID#: [id number] Authenticated and Edited by Jani hauser MD On 10/19/18 3:02:28 PM at 1809 PATIENT NAME: LEIGH FRYE 2018-10-03 10:00:00-00:00 [facility] ([facility] Neurosurgical Progress Note REPORT#:[id number] REPORT STATUS: Signed DATE:10/03/18 TIME: 1000 PATIENT: LEIGH FRYE UNIT #: [id number] [facility] AGE: 38 SEX: F ATTEND: Johana Mckoy MD ADM AUTHOR: Tanya Rodriguez, TILE SPRAYER * ALL edits or amendments must be [...] Physical Exam General appearance: alert, awake, oriented 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: alert, oriented X 3, CN II-XII intact, [...] % (Auto) (14 - 44 %) 40.8 Ballard % (Auto) (4 - 13 %) 8.2 Eos % (Auto) (0 - 6 %) 9.0 H Baso % (Auto) (0 - 2 %) 0.7 Neut # (Auto) (2.0 - 7.6 K/mm3) 1.65 L Lymph # (Auto) (1.0 - 3.8 K/mm3) 1.64 Ballard # (Auto) (0.1 - 0.8 K/mm3) 0.33 [...] Rodriguez NP on 05/10 at 1525 RPT #:[id number] END OF REPORT 2018-10-03 10:00:00-00:00 [facility] ([facility]) Neurosurgical Progress Note REPORT#:[id number] REPORT STATUS: Signed DATE:10/03/18 TIME: 999 PATIENT: LEIGH FRYE UNIT #: [id number] ROOM/BED: [address] : 80 AGE: 38 SEX: F ATTEND: Johana Mckoy MD ADM AUTHOR: Tanya Rodriguez NP * ALL edits or amendments must be made on the [employer]/computer document * Tanya Rodriguez NP 10/03/18 1000: [...] Physical Exam General appearance: alert, awake, oriented 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: alert, oriented X 3, CN II-XII intact, [...] % (Auto) (14 - 44 %) 40.8 Ballard % (Auto) (4 - 13 %) 8.2 Eos % (Auto) (0 - 6 %) 9.0 H Baso % (Auto) (0 - 2 %) 0.7 Neut # (Auto) (2.0 - 7.6 K/mm3) 1.65 L Lymph # (Auto) (1.0 - 3.8 K/mm3) 1.64 Ballard # (Auto) (0.1 - 0.8 K/mm3) 0.33 [...] comments: Agree with above Electronically Signed by Tayna Rodriguez NP on 05/10 at 1525 RPT #:[id number] END OF REPORT 2018-10-03 10:00:00-00:00 [facility] ([facility]) Neurosurgical Progress Note REPORT#:[id number] REPORT STATUS: Signed DATE:10/03/18 TIME: 1000 PATIENT: LEIGH FRYE UNIT #: [id number] ROOM/BED: [address] : 80 AGE: 38 SEX: F ATTEND: Johana Mckoy MD ADM AUTHOR: Tanya Rodriguez NP * ALL edits or amendments must be made on the [employer]/computer document * Tanya Rodriguez NP 10/03/18 1000: [...] Physical Exam General appearance: alert, awake, oriented 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: alert, oriented X 3, CN II-XII intact, [...] % (Auto) (14 - 44 %) 40.8 Ballard % (Auto) (4 - 13 %) 8.2 Eos % (Auto) (0 - 6 %) 9.0 H Baso % (Auto) (0 - 2 %) 0.7 Neut # (Auto) (2.0 - 7.6 K/mm3) 1.65 L Lymph # (Auto) (1.0 - 3.8 K/mm3) 1.64 Ballard # (Auto) (0.1 - 0.8 K/mm3) 0.33 [...] Viera MD on 09/07 at 1342 RPT #:[id number] END OF REPORT 2018-10-02 23:30:00-00:00 [id number] [place] [address] PATIENT NAME: LEIGH FRYE ADMIT DATE: 10/01/18 ACCOUNT NO: [id number] ROOM NO: Z.530 AGE: 38 REPORT TYPE: PROGRESS NOTE SEX: [...] vancomycin yesterday to r educe risk of WEAPONS AND TACTICS INSTRUCTOR infection. She had urticarial reaction to vancomycin, [...] By: Jani Mckoy MD WT: PN:GISSELLE/YONATHAN/JERSON Conf#: [id number]/DID#: [id number] Authenticated by Jani Mckoy MD On 01:07:47 PM at 1308 PATIENT NAME: LEIGH FRYE 2018-10-02 16:41:00-00:00 [facility] ([facility] General Progress Note REPORT#:[id number] REPORT STATUS: Signed DATE:10/02/18 TIME: 1641 PATIENT: LEIGH FRYE UNIT #: [id number] ROOM/BED: [address] : 80 AGE: 38 SEX: F ATTEND: Johana Mckoy MD ADM AUTHOR: Jani Mckoy MD * ALL edits or amendments must be made on the [employer]/computer document * Subjective Comments: Vital Signs Date [...] Room air Laboratory Tests: 10/02 10/02 10/01 6118 8127 6184 Chemistry Sodium (137 - 145 MMOL/L) 138 [...] # (Auto) (1.0 - 3.8 K/mm3) 1.31 Ballard # (Auto) (0.1 - 0.8 K/mm3) 0.34 [...] MG BEDTIME 10/02 2100 AC PO 11/01 2100 Furosemide 40 MG ONCE ONE 10/02 1345 [...] TID 10/01 2100 CKD 10/02 TOPICAL 10/31 2100 1156 Fentanyl 12 MCG.PER.HR Q72H 10/01 1625 [...] 2341 0930 Miscellaneous 1 EACH ASDIR 09/30 2205 DC Information IV 10/11 2204 Vital Signs Date Time Temp Pulse Resp [...] 98.2 86 14 148/85 106.2 100 Room ai r 09/30 1846 98.1 79 14 151/99 116.0 100 Room air Laboratory Tests: 10/02 10/02 10/01 0936 0962 6900 Chemistry Sodium (137 - 145 MMOL/L) 138 [...] # (Auto) (1.0 - 3.8 K/mm3) 1.31 Ballard # (Auto) (0.1 - 0.8 K/mm3) 0.34 [...] MG BEDTIME 10/02 2100 AC PO 11/01 210 Furosemide 40 MG ONCE ONE 10/02 1345 DC PO 10/02 1346 Loratadine 10 MG DAILY 10/02 1345 AC PO 11/01 1346 Citalopram 40 MG DAILY 10/02 0900 AC 10/02 Hydrobromide PO 11/01 0901 0929 Vancomycin HCl 1,250 MG Q6H 10/02 0000 DC 09/19 4 Sodium Chloride 250 ML IV 10/11 0459 1156 Diphenhydramine HCl 25 MG Q6H PRN PRN 10/01 22 05 AC 10/02 PO 10/31 2206 0017 Atorvastatin Calcium 40 MG BEDTIME 10/01 2100 A C 10/01 PO 10/31 Nystatin 1 XIANG TID 10/01 2100 CKD 10/02 TOPICAL 10/31 210 1156 Fentanyl 12 MCG.PER.HR Q72H 10/01 1625 CKD 09/19 3 TRANSDERM 10/31 1626 1633 Hydrochlorothiazide 25 MG DAILY 10/01 1230 AC 0 10/02 PO 10/31 1231 0929 Hydrocortisone 10 MG BID AC 10/01 1230 AC 07 4 PO 10/31 1231 0929 Lisinopril 20 MG [...] HCl 1,250 MG Q6H 10/01 0500 DC 09/19 3 Sodium Chloride 250 ML IV 10/11 0459 1244 Oxycodone/ 1 TAB Q4H PRN PRN 09/30 2340 AC 09/19 4 Acetaminophen PO 10/30 2341 0930 Miscellaneous 1 EACH ASDIR 09/30 220 DC Information IV 10/12 2203 SEE DICTATION Electronically Signed by Jani Mckoy MD o n 10/02/18 at 1642 [facility] #:[id number] END OF REPORT 2018-10-01 22:47:00-00:00 [facility] ([facility]) General Progress Note REPORT#:[id number] REPORT STATUS: Signed DATE:10/01/18 TIME: 2246 PATIENT: LEIGH FRYE UNIT #: [id number] [facility] AGE: 38 SEX: F ATTEND: Johana Mckoy MD ADM AUTHOR: Jani Mckoy MD * ALL edits or amendments must be made on the [employer] document * Subjective Comments: Vital Signs Date Time Temp Pulse Resp B/P B/P Pulse O2 O2 F low FiO2 Mean Ox Delivery Rate 10/01 1942 98.4 79 14 114/75 88.0 97 Room [...] % (Auto) (14 - 44 %) 20.9 Ballard % (Auto) (4 - 13 %) 10.5 Eos % (Auto) (0 - 6 %) 5.7 Baso % (Auto) (0 - 2 %) 0.4 Neut # (Auto) (2.0 - 7.6 K/mm3) 2.85 Lymph # (Auto) (1.0 - 3.8 K/mm3) 0.96 L Ballard # (Auto) (0.1 - 0.8 K/mm3) 0.48 [...] PRN 10/01 220 5 AC PO 10/31 2205 Atorvastatin Calcium 40 MG BEDTIME 10/01 2100 A C 10/01 PO 10/31 Nystatin 1 XIANG TID 10/01 2100 CKD 10/01 TOPICAL 10/31 Fentanyl 12 MCG.PER.HR Q72H 10/01 1625 CKD TRANSDERM 10/31 162 1633 Fentanyl 12 MCG.PER.HR Q72HR 10/01 1609 DC TRANSDERM 10/31 1610 Fentanyl 1 MCG.PER.HR Q72HR 10/01 1230 DC TRANSDERM 10/31 1231 Hydrochlorothiazide 25 MG DAILY 10/01 1230 AC 0 10/01 PO 10/31 1231 1245 Hydrocortisone 10 MG BID AC 10/01 1230 AC 07/ 3 PO 10/31 1231 1608 Lisinopril 20 MG [...] 0059 2242 Miscellaneous 1 EACH ASDIR 09/30 2205 CKD Information IV 10/11 2204 SEE DICTATIO Electronically Signed by Jani Mckoy MD o n 10/01/18 at 2249 RPT #:[id number] END OF REPORT 2018-10-01 10:50:00-00:00 [facility] ([facility]) Neurosurgical Consultation REPORT#:[id number] REPORT STATUS: Signed DATE:10/01/18 TIME: 1050 PATIENT: LEIGH FRYE UNIT #: [id number] ROOM/BED: [address]-A : 80 AGE: 38 SEX: F ATTEND: Tho Mckoy MD ADM AUTHOR: Ozzy Viera MD * ALL edits or amendments must be made on the el [employer]/computer document * History of Present Illness Requesting [...] I O ending at 0700: 10/01 0700 / 1900 Intake Total 2950.00 Output Total Balance 2950.00 Intake, IV 350.00 Intake, Oral 2600 Number Voids 3 1 Output, Urine Patient 192.72 kg Weight Weight Estimated Measurement Method Patient Weight Weight (lb): 424 Weight (oz): 14 Weight (kg): 192.720 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: alert, oriented X 3, CN II-XII intact, [...] Viera MD on 09/19 06/07 at 1054 [facility] #:[id number] END OF REPORT 2018-09-30 19:34:00-00:00 [id number] [facility] [address] [place] [address] PATIENT NAME: LEIGH FRYE ADMIT DATE: 10/01/18 ACCOUNT NO: [id number] ROOM NO: Z.530 AGE: 38 REPORT TYPE: [...] had drainage from nose, came to the [facility] Room. Imaging studies were nondiagnostic. During last [...] essary. Dictated By: Jani Mckoy MD WT: HP:GISSELLE/YONATHAN/JERSON Conf#: [id number]/DID#: [id number] Authenticated by Jani Mckoy MD On 01:06:54 PM at 1307 PATIENT NAME: LEIGH FRYE 2018-09-27 22:25:00-00:00 [facility] ([facility]) EMERGENCY PROVIDER REPORT REPORT#:[id number] REPORT STATUS: Signed DATE:09/27/18 TIME: 2224 PATIENT: LEIGH FRYE UNIT #: [id number] ROOM/BED: AGE: 38 SEX: F PCP PHYS: Undefined Provider SERVICE AUTHOR: Lazarus Brink MD [facility] * ALL edits or amendments must be made on the [employer]/computer document * HPI- Female General Confirmed Patient Yes Patient Type New patient Initial Greet Date/Time 09/27/[address] Mckoy Presentation Chief Complaint Flank [...] 09/27 2048 Pulse 85 09/27 2048 Resp 09/27 Last Documented: Result Date Time Pulse Ox 97 09/27 2048 B/P 142/87 09/27 2048 B/P Mean 105 09/27 2048 O2 Delivery Room air 09/27 2048 Temp 36.2 09/27 2048 Pulse 85 09/27 2048 Resp 09/27 Review of Vital Signs Reviewed Focused PE General/Const General/Const Awake, Alert, No acute distress, Cooperative, Not toxic appearing Resp/Chest Respiratory/Chest Breath sounds NL, Breath varun nds = bilat, No rales, No rhonchi, No [...] # (Auto) (1.0 - 3.8 K/mm3) 2.82 Ballard # (Auto) (0.1 - 0.8 K/mm3) 0.43 [...] pH (5.0 - 9.0) 6.0 Ur Specific [place] (1.003 - 1.030) 1.015 Urine Protein (NEGATIVE [...] Report Impression - Status: SIGNED Entered: 09/28/2018 0040 Impression: No evidence of an acute intracranial abnormality . Similar appearance of postsurgical changes relat ed to transsphenoidal pituitary tumor resection. Persistent paranasal sinusitis, moderate at the sphenoid sinuses. 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 Impression By: [email or web address] Robert Luo MD CAT SCAN - CT MAXIFAC W/CONTRAST 09/27 2349 Report Impression - Status: SIGNED Entered: 09/28/2018 004 Impression: No evidence of an acute intracranial abnormality . Similar appearance of postsurgical changes relat ed to transsphenoidal pituitary tumor resection. Persistent paranasal sinusitis, moderate at the sphenoid sinuses. 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 Impression By: [email or web address] Robert Luo MD CAT SCAN - CT ABD PELVIS W/O CONT 09/27 2349 Report Impression - Status: SIGNED Entered: 09/28/2018 0025 IMPRESSION: 1. No acute abnormalities. This exam was performed according to our [facility] ental dose-optimization program, which includes automa kenroy exposure control, adjustment of the mA and/or kV according to alethea ent size and/or use of iterative reconstruction technique Impression By: [email or web address] - Luis M Gee MD Lab Imaging [...] he ad/face negative. No e/o postoperative pathology, just chronic pa ranasal sinusitis. CT abd/pelvis shows no acute findings [...] ONE 09/27 2234 DC 09/27 IV 09/27 2334 232 Gastrointestinal Drugs Sig/Roshan Start time Last Medication Dose Route Stop Time Status Admin Ondansetron HCl 4 MG X1ED PRN PRN 09/27 2234 DC 09/27 IV 09/29 2235 232 Portions of this section were scribed by [...] symptoms should prompt an immediate return to [facility] or the closest emergency department or a call to 911. Quality Measures BP F/U for HTN Referred for BP f/u < 4wk, F/u wi PCP/other doc Supervising Physician Note Scribe Statement Yamile Ledezma ii, 09/27/18 2 251, scribing for and in the presence of [Dr. Lazarus Brink MD]. Signed By: Yamile Ledezma ii, 09/27/18 1811 Provider Scribed Statement I personally performed the [...] Lazarus Brink MD on 09/19 at 1137 [facility] #:[id number] END OF REPORT 2018-09-13 13:32:00-00:00 [facility] ([facility]) General Progress Note REPORT#:[id number] REPORT STATUS: Signed DATE:09/13/18 TIME: 1332 PATIENT: LEIGH FRYE UNIT #: [id number] AGE: 38 SEX: F ATTEND: Johana Mckoy MD ADM AUTHOR: Jani Mckoy MD * ALL edits or amendments must be made on the el [employer]/computer document * Subjective Comments: Vital Signs Date [...] % (Auto) (14 - 44 %) 33.6 Ballard % (Auto) (4 - 13 %) 7.9 Eos % (Auto) (0 - 6 %) 4.9 Baso % (Auto) (0 - 2 %) 0.7 Neut # (Auto) (2.0 - 7.6 K/mm3) 4.64 Lymph # (Auto) (1.0 - 3.8 K/mm3) 2.99 Ballard # (Auto) (0.1 - 0.8 K/mm3) 0.70 [...] MISC 10/12 2211 Apixaban 5 MG BID 09/120 AC 09/13 PO 10/12 220 0824 Labetalol HCl 5 MG Q4H PRN PRN 09/10 1720 AC IV 10/10 1721 Albuterol/Ipratropium 3 ML RTQ6H PRN 09/10 1033 DC 09/11 INH 10/10 1033 0405 Alteplase, 2 MG ASDIR PRN 09/10 0730 AC 09/10 Recombinant IV 10/10 0731 1333 Fentanyl 25 MCG.PER.HR Q72H 09/09 2245 CKD 08/21 4 TRANSDERM 10/09 2246 2250 Lisinopril 5 MG Q12HR 09/09 2100 AC 09/13 PO 10/09 2101 1119 Oxycodone HCl 10 MG Q6H PRN PRN 09/09 1650 AC 09/13 PO 10/09 1651 0823 Furosemide 20 MG DAILY 09/09 1100 AC 09/13 PO 10/09 1101 0825 Metronidazole/Sodium 100 ML Q8HR 09/08 1300 DC 09/13 Chloride IV 09/15 1259 0439 Hydrocortisone 10 MG BID AC 09/06 1630 AC 09/13 PO 10/06 1631 0824 Metoprolol Tartrate 50 [...] PRN 08/30 1820 AC MM 09/29 1821 [employer] [employer]/[place] 1 XIANG Q12HR 08/29 2100 CKD 09/13 Balsam/Trypsin TOPICAL 09/28 210 0830 Clotrimazole 1 XIANG BID 08/29 2100 CKD 09/13 TOPICAL 09/28 210 0829 Pantoprazole 40 MG Q12HR 08/29 2100 AC 09/13 PO 09/28 210 0825 Vitamin B Complex/ 1 TAB BID 08/28 2099 CKD Vitamin C PO 09/27 210 0825 Citalopram 40 MG DAILY 08/26 0900 AC 09/13 Hydrobromide PO 09/25 0901 0825 SEE DICTATION Electronically Signed by Jani Mckoy MD o n 09/13/18 at [facility] #:[id number] END OF REPORT 2018-09-12 18:49:00-00:00 [id number] [place] [address] PATIENT NAME: LEIGH FRYE ADMIT DATE: 08/25/18 ACCOUNT NO: [id number] ROOM NO: 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 Plans are for [facility] surgical evaluation of thyroid nodule once biopsy r eport is available. It may be parathyroid resection is that she needs. Pituitary adenoma will be fo llowed by Dr. Viera, hormone issues with me and issues concerning to lap band are done by Dr. Phillips. His opinion is present. Lap band can be left alone. She is surely asymptomatic. Dictated By: Jani Mckoy MD WT: PN:GISSELLE/YONATHAN/JERSON Conf#: [id number]/DID#: [id number] Authenticated by Jani Mckoy MD On 06:10:43 AM at 0611 PATIENT NAME: LEIGH FRYE 2018-09-12 14:14:00-00:00 [facility] ([facility] Neurosurgical Progress Note REPORT#:[id number] REPORT STATUS: Signed DATE:09/12/18 TIME: 1413 PATIENT: LEIGH FRYE UNIT #: [id number] ROOM/BED: [address] : 80 AGE: 38 SEX: F ATTEND: Johana Mckoy MD ADM AUTHOR: Tanya Rodriguez, TILE SPRAYER * ALL edits or amendments must be made on the el [employer]/computer document * Subjective Comments: Nasal packing removed [...] Phenol 1 SPRAY Q4H PRN PRN MM [employer] Balsam/Trypsin 1 XIANG Q12HR T OPICAL (CKD) Clotrimazole 1 XIANG BID TOPICAL (CKD) Pantoprazole 40 MG Q12HR PO Vitamin B Complex/Vitamin C 1 TAB BID PO (CKD) Citalopram Hydrobromide 40 MG DAILY PO Physical Exam General appearance: alert, awake, oriented Cardiovascular: regular rate rhythm Respiratory: no distress, symmetric expansion Abdomen: non-tender, normal bowel sounds, soft, no distention 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: alert, oriented X 3, CN II-XII intact, [...] NP on 08/21 11/07 at 1521 RPT #:[id number] END OF REPORT 2018-09-12 14:14:00-00:00 [facility] ([facility]) Neurosurgical Progress Note REPORT#:[id number] REPORT STATUS: Signed DATE:09/12/18 TIME: 1413 PATIENT: LEIGH FRYE UNIT #: [id number] ROOM/BED: [address] : 80 AGE: 38 SEX: F ATTEND: Johana Mckoy MD ADM AUTHOR: Tanya Rodriguez NP * ALL edits or amendments must be made on the [employer]/computer document * Tanya Rodriguez NP 09/12/18 1414: [...] Phenol 1 SPRAY Q4H PRN PRN MM [employer] Balsam/Trypsin 1 XIANG Q12HR T OPICAL (CKD) Clotrimazole 1 XIANG BID TOPICAL (CKD) Pantoprazole 40 MG Q12HR PO Vitamin B Complex/Vitamin C 1 TAB BID PO (CKD) Citalopram Hydrobromide 40 MG DAILY PO Physical Exam General appearance: alert, awake, oriented Cardiovascular: regular rate rhythm Respiratory: no distress, symmetric expansion Abdomen: non-tender, normal bowel sounds, soft, no distention 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: alert, oriented X 3, CN II-XII intact, [...] NP on 08/21 11/07 at 1521 RPT #:[id number] END OF REPORT 2018-09-12 14:14:00-00:[address] [facility] ([facility]) Neurosurgical Progress Note REPORT#:[id number] REPORT STATUS: Signed DATE:09/12/18 TIME: 1413 PATIENT: LEIGH FRYE UNIT #: [id number] ROOM/BED: [address] : 80 AGE: 38 SEX: F ATTEND: Johana Mckoy MD ADM AUTHOR: Tanya Rodriguez NP * ALL edits or amendments must be made on the [employer]/computer document * Tanya Rodriguez NP 09/12/18 1414: [...] Phenol 1 SPRAY Q4H PRN PRN MM [employer] Balsam/Trypsin 1 XIANG Q12HR T OPICAL (CKD) Clotrimazole 1 XIANG BID TOPICAL (CKD) Pantoprazole 40 MG Q12HR PO Vitamin B Complex/Vitamin C 1 TAB BID PO (CKD) Citalopram Hydrobromide 40 MG DAILY PO Physical Exam General appearance: alert, awake, oriented Cardiovascular: regular rate rhythm Respiratory: no distress, symmetric expansion Abdomen: non-tender, normal bowel sounds, soft, no distention 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: alert, oriented X 3, CN II-XII intact, [...] NP on 08/21 11/07 at 1521 RPT #:[id number] END OF REPORT 2018-09-12 14:14:00-00:00 [facility] ([facility]) Neurosurgical Progress Note REPORT#:[id number] REPORT STATUS: Signed DATE:09/12/18 TIME: 1414 PATIENT: LEIGH FRYE UNIT #: [id number] ROOM/BED: [facility] : 80 AGE: 38 SEX: F ATTEND: Johana Mckoy MD ADM AUTHOR: Tanya Rodriguez NP * ALL edits or amendments must be made on the el [employer]/computer document * Tanya Rodriguez TILE SPRAYER 09/12/18 1414: Subjective Comments: Nasal packing removed [...] Phenol 1 SPRAY Q4H PRN PRN MM [employer] Balsam/Trypsin 1 XIANG Q12HR T OPICAL (CKD) Clotrimazole 1 XIANG BID TOPICAL (CKD) Pantoprazole 40 MG Q12HR PO Vitamin B Complex/Vitamin C 1 TAB BID PO (CKD) Citalopram Hydrobromide 40 MG DAILY PO Physical Exam General appearance: alert, awake, oriented Cardiovascular: regular rate rhythm Respiratory: no distress, symmetric expansion Abdomen: non-tender, normal bowel sounds, soft, no distention 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: alert, oriented X 3, CN II-XII intact, [...] Viera MD on 04/09 at 1506 RPT #:[id number] END OF REPORT 2018-09-12 08:46:00-00:00 [facility] ([facility]) General Progress Note REPORT#:[id number] REPORT STATUS: Signed DATE:09/12/18 TIME: 0846 PATIENT: LEIGH FRYE UNIT #: [id number] ROOM/BED: [address] : 80 AGE: 38 SEX: F ATTEND: Johana Mckoy MD ADM AUTHOR: Jani Mckoy MD * ALL edits or amendments must be made on the el [employer]/computer document * Subjective Comments: Vital Signs Date [...] - 53.5 pg/mL) 100.6 H Microbiology: 09/09 145 SPUTUM: Sputum Culture - RES 09/09 145 [...] Q12HR 09/09 2100 AC 09/11 PO 10/09 2102005 Oxycodone HCl 10 MG Q6H PRN PRN [...] BID 08/30 2100 AC 09/11 PO 09/29 2101 2008 Phenol 1 SPRAY Q4H PRN PRN 08/30 1820 AC MM 09/29 1821 [employer] 1 XIANG Q12HR 08/29 2100 CKD 09/11 Balsam/Trypsin TOPICAL 09/28 2102007 Clotrimazole 1 XIANG BID 08/29 2100 CKD 09/11 TOPICAL 09/28 210 2009 Pantoprazole 40 MG Q12HR 08/29 2100 AC 09/11 PO 09/28 210 2008 Vitamin B Complex/ 1 TAB BID 08/28 2100 CKD Vitamin C PO 09/27 210 2007 Citalopram 40 MG DAILY 08/26 0900 AC 09/11 Hydrobromide PO 09/25 0901 1001 SEE DCTATION Electronically Signed by Jani Mckoy MD o n 09/12/18 at 0847 RPT #:[id number] END OF REPORT 2018-09-11 13:51:00-00:00 [id number] [place] [address] PATIENT NAME: LEIGH FRYE ADMIT DATE: 08/25/18 ACCOUNT NO: [id number] ROOM NO: Z.504 AGE: 38 REPORT TYPE: [...] 1.9 x 2.1. Significant decrease within the mon th time. Nodule is hypoechoic and solid. I [...] being. Dictated By: Jani Mckoy MD WT: PN:ZCIERRA/YONATHAN/JERSON Conf#: [id number]/DID#: [id number] Authenticated by Jani Mckoy MD On 06:09:30 AM at 0609 PATIENT NAME: LEIGH FRYE 2018-09-11 09:31:00-00:00 [facility] ([facility]) General Progress Note REPORT#:[id number] REPORT STATUS: Signed DATE:09/11/18 TIME: 930 PATIENT: LEIGH FRYE UNIT #: [id number] [facility] AGE: 38 SEX: F ATTEND: Johana Mckoy MD ADM AUTHOR: Jani Mckoy MD * ALL edits or amendments must be made on the [employer] document * Subjective Comments: Vital Signs Date [...] % (Auto) (14 - 44 %) 33.6 Ballard % (Auto) (4 - 13 %) 7.9 Eos % (Auto) (0 - 6 %) 4.9 Baso % (Auto) (0 - 2 %) 0.7 Neut # (Auto) (2.0 - 7.6 K/mm3) 4.64 Lymph # (Auto) (1.0 - 3.8 K/mm3) 2.99 Ballard # (Auto) (0.1 - 0.8 K/mm3) 0.70 [...] catheter can be removed at the b edside according to standard hospital protocol. dry room operator: Jacqueline Fleming PA-C. Impression By: Dolores Pepe MD SPECIAL PROCEDURES - US GUIDANCE VASC ACCESS 1300 Report Impression - Status: SIGNED Entered: 09/08/2018 1447 IMPRESSION: Successful non-tunneled PICC placeme nt via the right basilic vein. PLAN: The catheter is ready for immediate use. W hen treatment is completed, this catheter can be removed at the b edside according to standard hospital protocol. dry room operator: Jacqueline Fleming PA-C. Impression By: Dolores [...] % (Auto) (14 - 44 %) 33.6 Ballard % (Auto) (4 - 13 %) 7.9 Eos % (Auto) (0 - 6 %) 4.9 Baso % (Auto) (0 - 2 %) 0.7 Neut # (Auto) (2.0 - 7.6 K/mm3) 4.64 Lymph # (Auto) (1.0 - 3.8 K/mm3) 2.99 Ballard # (Auto) (0.1 - 0.8 K/mm3) 0.70 [...] 09/09 2100 AC 09/10 PO 10/09 2101 1704 Oxycodone HCl 10 MG Q6H PRN PRN 09/09 1650 AC 0 09/11 PO 10/09 1651 0559 Furosemide 20 MG DAILY 09/09 1100 AC 09/10 PO 10/09 1101 0923 Metronidazole/Sodium 100 ML Q8HR 09/08 1300 AC 09/11 Chloride IV 09/15 1259 0521 Hydrocortisone 10 MG BID AC 09/06 1630 AC 09/10 PO 10/06 1631 1610 Apixaban 5 MG BID 09/06 1300 DC 09/10 PO 09/10 2101 2103 Metoprolol Tartrate 50 MG BID 09/05 2100 AC PO 09/25 0901 1704 Sucralfate 1 GM BID 09/05 2100 AC 09/10 PO 10/05 210 2055 Ondansetron HCl 4 MG Q6H PRN PRN [...] Glycol 17 GM DAILY 09/01 0925 AC 09/07 PO 10/01 0926 0759 Docusate Sodium 100 MG BID 08/30 2100 AC 09/10 PO 09/29 210 205 Phenol 1 SPRAY Q4H PRN PRN 08/30 1820 AC MM 09/29 182 [place] [employer]/[place] 1 XIANG Q12HR 08/29 2100 CKD 09/10 Balsam/Trypsin TOPICAL 09/28 Clotrimazole 1 XIANG BID 08/29 2100 CKD 09/10 TOPICAL 09/28 2100 2100 Pantoprazole 40 MG Q12HR 08/29 2100 AC 09/10 PO 09/28 Vitamin B Complex/ 1 TAB BID 08/28 2100 CKD Vitamin C PO 09/27 Citalopram 40 MG DAILY 08/26 09 AC 09/10 Hydrobromide PO 09/25 0901 0923 SEE DICTATION /PLAN FNB THYROID NODULE Electronically Signed by Jani Mckoy MD o n 09/11/18 at 0933 RPT #:[id number] END OF REPORT 2018-09-10 15:18:00-00:00 [id number] [place] [address] PATIENT NAME: LEIGH FRYE ADMIT DATE : 08/25/18 ACCOUNT NO: [id number] ROOM NO: Z.504 AGE: 38 REPORT TYPE: [...] with oxycodone is satisfactory. The patient had rece nt aspiration pneumonia is clearing with bilateral crackles. Decreased coug h or expectoration. The patient is being weaned from hydrocortisone and DDAVP and we will see if she can do the least amount of medic ations for renal dysfunction ____ subtotal resection some of ____. We are monitoring her electrolytes and urine output closely. Dictated By: Jani Mckoy MD WT: PN:GISSELLE/YONATHAN/JERSON Conf#: [id number]/DID#: [id number] Authenticated by Jani Mckoy MD On 06:08:58 AM at 0609 PATIENT NAME: LEIGH FRYE 2018-09-10 11:28:00-00:00 [facility] ([facility]) General Progress Note REPORT#:[id number] REPORT STATUS: Signed DATE:09/10/18 TIME: 1127 PATIENT: LEIGH FRYE UNIT #: [id number] ROOM/BED: [facility] : 80 AGE: 38 SEX: F ATTEND: Johana Mckoy MD ADM AUTHOR: Jani Mckoy MD * ALL edits or amendments must be made on the el ectronic/computer document * Subjective Comments: Vital Signs Date Time Temp Pulse Resp B/P B/P Pulse O2 O2 F low FiO2 Mean Ox Delivery Rate 09/10 0622 97.9 73 14 148/97 113.8 95 Room [...] cm. Impression By: [email or web address] Renetta Briceño MD Microbiology: 09/09 1456 SPUTUM: Sputum Culture [...] the edside according to standard hospital protocol. dry room operator: Jacqueline Fleming PA-C. Impression By: Dolores Pepe MD SPECIAL PROCEDURES - US GUIDANCE VASC ACCESS 1300 Report Impression - Status: SIGNED Entered: 09/08/2018 1447 IMPRESSION: Successful non-tunneled PICC placeme nt via the right basilic vein. PLAN: The catheter is ready for immediate use. W hen treatment is completed, this catheter can be removed at the b edside according to standard hospital protocol. dry room operator: Jacqueline Fleming PA-C. Impression By: Dolores [...] Fentanyl 25 MCG.PER.HR Q72H 09/09 2245 CKD TRANSDERM 10/09 2246 2301 Lisinopril 5 MG [...] 1525 DC 09/09 PO 09/29 1446 1354 [employer] [employer]/[place] 1 XIANG Q12HR 08/29 2099 CKD 09/10 Balsam/Trypsin TOPICAL 09/28 2100 09 Clotrimazole 1 XIANG BID 08/29 2100 CKD 09/09 TOPICAL 09/28 Pantoprazole 40 MG Q12HR 08/29 2100 AC 09/10 PO 09/28 2100 09 Vitamin B Complex/ 1 TAB BID 08/28 2099 CKD Vitamin C PO 09/27 2100 0924 Citalopram 40 MG DAILY 08/26 899 AC 09/10 Hydrobromide PO 09/25 0901 0923 SEEE DICTATION Electronically Signed by Jani Mckoy MD o n 09/10/18 at 1129 RPT #:[id number] END OF REPORT 2018-09-09 17:28:00-00:00 [facility] ([facility]) General Surgery Consultation REPORT#:[id number] REPORT STATUS: Signed DATE:09/09/18 TIME: 1728 PATIENT: LEIGH FRYE UNIT #: [id number] ROOM/BED: [address] : 80 AGE: 38 SEX: F ATTEND: Johana Mckoy MD ADM AUTHOR: Cabrera Phillips MD * ALL edits or amendments must be made on the [employer]/computer document * History of Present Illness HPI [...] FiO2 21 09/08 0859 O2 Flow Rate 0.431702 09/05 1938 24 hour I O ending [...] EMENT RECENT PITUITARY SURGERY at 1733 RPT #:[id number] END OF REPORT 2018-09-09 14:04:00-00:00 [facility] ([facility]) General Progress Note REPORT#:[id number] REPORT STATUS: Signed DATE:09/09/18 TIME: 1404 PATIENT: LEIGH FRYE UNIT #: [id number] ROOM/BED: [address] : 80 AGE: 38 SEX: F ATTEND: Johana Mckoy MD ADM AUTHOR: Jani Mckoy MD * ALL edits or amendments must be made on the [employer]/computer document * Subjective Comments: Vital Signs Date Time Temp Pulse Resp B/P B/P Pulse O2 O2 F low FiO2 Mean Ox Delivery Rate 09/09 1130 [...] from the prior examination. Impression By: Xochitl - Ida Obrien MD Recent Impressions: RADIOLOGY [...] the edside according to standard hospital protocol. dry room operator: Jacqueline Fleming PA-C. Impression By: Dolores Pepe MD SPECIAL PROCEDURES - US GUIDANCE VASC ACCESS 1300 Report Impression - Status: SIGNED Entered: 09/08/2018 1447 IMPRESSION: Successful non-tunneled PICC placeme nt via the right basilic vein. PLAN: The catheter is ready for immediate use. W hen treatment is completed, this catheter can be removed at the edside according to standard hospital protocol. dry room operator: Jacqueline Fleming PA-C. Impression By: Dolores Pepe MD RADIOLOGY - XR CHEST 2 V 09/09 0910 Report Impression - Status: SIGNED Entered: 09/09/2018 0938 IMPRESSION: Diffuse interstitial and airspace opacities thro ughout both lungs unchanged from the prior examination. Impression By: Xochitl Obrien MD Current Medications Sig/Roshan Start time [...] Bitart/ 1 TAB Q4H PRN PRN 09/06 10 25 AC 09/09 Acetaminophen PO 10/06 1026 1353 Metoprolol Tartrate 50 MG BID 09/05 2100 AC PO 09/25 0901 0858 Sucralfate 1 GM BID 09/05 2100 AC 09/09 PO 10/05 2101 0858 Ondansetron HCl 4 MG Q6H PRN PRN 09/05 1625 AC 09/05 SL 10/05 1626 1639 Vancomycin HCl 2,000 MG Q12H 09/05 1600 DC 08/21 1 Sodium Chloride 500 ML IV 09/12 1559 [...] Acetate 0.2 MG PC DIN 09/02 1800 DC 09/08 PO 10/02 1801 1830 Polyethylene Glycol 17 GM DAILY 09/01 0925 AC 09/07 PO 10/01 0926 0759 Docusate Sodium 100 MG BID 08/30 2100 AC 09/08 PO 09/29 2101 2028 Phenol 1 SPRAY Q4H PRN PRN 08/30 1820 AC MM 09/29 1821 Acetaminophen 650 MG Q4H PRN PRN 08/30 1525 AC 09/09 PO 09/29 1446 1354 [employer] 1 XIANG Q12HR 08/29 2100 CKD 09/09 Balsam/Trypsin TOPICAL 09/28 210 0900 Clotrimazole 1 XIANG BID 08/29 2100 CKD 09/09 TOPICAL 09/28 210 0900 Pantoprazole 40 MG Q12HR 08/29 2100 AC 09/09 PO 09/28 2101 0859 Vitamin B Complex/ 1 TAB BID 08/28 2100 CKD Vitamin C PO 09/27 2101 0856 Citalopram 40 MG DAILY 08/26 0900 AC 09/09 Hydrobromide PO 09/25 0901 0859 SEE DICTATION Electronically Signed by Jani Mckoy MD 09/09/18 at 1406 RPT #:[id number] END OF REPORT 2018-09-09 10:03:00-00:[address] [facility] ([facility]) Neurosurgical Progress Note REPORT#:[id number] REPORT STATUS: Signed DATE:09/09/18 TIME: 1003 PATIENT: LEIGH FRYE UNIT #: [id number] ROOM/BED: [address] : 80 AGE: 38 SEX: F ATTEND: Johana Mckoy MD ADM AUTHOR: Tanya Rodriguez TILE SPRAYER * ALL edits or amendments must be made on the [employer]/computer document * Subjective Comments: Patient seen and [...] Acetaminophen 650 MG Q4H PRN PRN PO [employer] [employer] Balsam/Trypsin 1 XIANG Q12HR T OPICAL (CKD) Clotrimazole 1 XIANG BID TOPICAL (CKD) Pantoprazole 40 MG Q12HR PO Vitamin B Complex/Vitamin C 1 TAB BID PO (CKD) Citalopram Hydrobromide 40 MG DAILY PO Physical Exam General appearance: alert, awake, oriented Cardiovascular: regular rate rhythm Respiratory: no distress, symmetric expansion 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: sensory deficit, alert, oriented X 3, CN [...] 1300 Report Impression - Status: SIGNED Entered: 09/08/20181446 IMPRESSION: Successful non-tunneled PICC placeme nt via the right basilic vein. PLAN: The catheter is ready for immediate use. W hen treatment is completed, this catheter can be removed at the [facility] according to standard hospital protocol. dry room operator: Jacqueline Fleming PA-C. Impression By: Dolores - Alireza Pepe MD SPECIAL PROCEDURES - US GUIDANCE VASC ACCESS 1300 Report Impression - Status: SIGNED Entered: 09/08/20181446 IMPRESSION: Successful non-tunneled PICC placeme nt via the right basilic vein. PLAN: The catheter is ready for immediate use. W hen treatment is completed, this catheter can be removed at the [facility] according to standard hospital protocol. dry room operator: Jacqueline Fleming PA-C. Impression By: [email or web address] - Alireza Pepe MD RADIOLOGY - XR [...] NP on 08/21 04/09 at 1409 RPT #:[id number] END OF REPORT 2018-09-09 10:03:00-00:00 [facility] ([facility]) Neurosurgical Progress Note REPORT#:[id number] REPORT STATUS: Signed DATE:09/09/18 TIME: 1003 PATIENT: LEIGH FRYE UNIT #: [id number] ROOM/BED: [address] : 80 AGE: 38 SEX: F ATTEND: Johana Mckoy MD ADM AUTHOR: Tanya Rodriguez NP * ALL edits or amendments must be made on the [employer]/computer document * Tanya Rodriguez NP 09/09/18 1003: [...] Acetaminophen 650 MG Q4H PRN PRN PO [employer] [employer] Balsam/Trypsin 1 XIANG Q12HR T OPICAL (CKD) Clotrimazole 1 XIANG BID TOPICAL (CKD) Pantoprazole 40 MG Q12HR PO Vitamin B Complex/Vitamin C 1 TAB BID PO (CKD) Citalopram Hydrobromide 40 MG DAILY PO Physical Exam General appearance: alert, awake, oriented Cardiovascular: regular rate rhythm Respiratory: no distress, symmetric expansion 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: sensory deficit, alert, oriented X 3, CN [...] the edside according to standard hospital protocol. dry room operator: Jacqueline Fleming PA-C. Impression By: Dolores Pepe MD SPECIAL PROCEDURES - US GUIDANCE VASC ACCESS 1300 Report Impression - Status: SIGNED Entered: 09/08/2018 1447 IMPRESSION: Successful non-tunneled PICC placeme nt via the right basilic vein. PLAN: The catheter is ready for immediate use. W hen treatment is completed, this catheter can be removed at the edside according to standard hospital protocol. dry room operator: Jacqueline Fleming PA-C. Impression By: Dolores Pepe MD RADIOLOGY - XR CHEST 2 V 09/09 0910 Report Impression - Status: SIGNED Entered: 09/09/2018 0938 IMPRESSION: Diffuse interstitial and airspace opacities thro ughout both lungs unchanged from the prior examination. Impression By: Xochitl - Ida Obrien MD Diagnosis, Assessment Plan [...] NP on 08/21 04/09 at 1409 RPT #:[id number] END OF REPORT 2018-09-09 10:03:00-00:[address] [facility] ([facility]) Neurosurgical Progress Note REPORT#:[id number] REPORT STATUS: Signed DATE:09/09/18 TIME: 1003 PATIENT: LEIGH FRYE UNIT #: [id number] ROOM/BED: [address] : 80 AGE: 38 SEX: F ATTEND: Johana Mckoy MD ADM AUTHOR: Tanya Rodriguez NP * ALL edits or amendments must be made on the [employer]/computer document * Tanya Rodriguez NP 09/09/18 1003: [...] Acetaminophen 650 MG Q4H PRN PRN PO [employer] Balsam/Trypsin 1 XIANG Q12HR T OPICAL (CKD) Clotrimazole 1 XIANG BID TOPICAL (CKD) Pantoprazole 40 MG Q12HR PO Vitamin B Complex/Vitamin C 1 TAB BID PO (CKD) Citalopram Hydrobromide 40 MG DAILY PO Physical Exam General appearance: alert, awake, oriented Cardiovascular: regular rate rhythm Respiratory: no distress, symmetric expansion 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: sensory deficit, alert, oriented X 3, CN [...] catheter can be removed at the b edside according to standard hospital protocol. dry room operator: Jacqueline Fleming PA-C. Impression By: [email or web address] [...] the edside according to standard hospital protocol. dry room operator: Jacqueline Fleming PA-C. Impression By: [email or web address] - Alireza Pepe MD RADIOLOGY - XR [...] MD on 08/21 05/10 at 1128 RPT #:[id number] END OF REPORT 2018-09-08 23:29:00-00:00 [id number] [place] [address] PATIENT NAME: LEIGH FRYE ADMIT DATE: 08/25/18 ACCOUNT NO: [id number] ROOM NO: Z.[facility] AGE: 38 REPORT TYPE: PROGRESS NOTE [...] shortness of breath. Her chest x-ray w [facility] showed she had bilateral congestive changes, it is pr obably due to fluid retention with multiple hormones she is getting. We will disc ontinue the hormones and give her intravenous Lasix 80 mg, IV potassium, check e lectrolytes later in day and see if further dose is necessary now or some other time. 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 [...] By: Jani Mckoy MD WT: PN:GISSELLE/YONATHAN/JERSON Conf#: [id number]/DID#: [id number] Authenticated by Jani Mckoy MD On 06:08:23 AM at 0608 PATIENT NAME: LEIGH FRYE 2018-09-08 16:06:00-00:00 [facility] ([facility]) General Progress Note REPORT#:[id number] REPORT STATUS: Signed DATE:09/08/18 TIME: 1606 PATIENT: LEIGH FRYE UNIT #: [id number] AGE: 38 SEX: F ATTEND: Johana Mckoy MD ADM AUTHOR: Jani Mckoy MD * ALL edits or amendments must be made on the [employer] document * Subjective Comments: Vital Signs Date [...] air 09/06 2319 100 Room air 09/06 195 98.1 74 14 142/84 103.5 95 Room [...] 1829 Influenza Virus Type A Antigen - CO MP NASOPHARG Laboratory Tests: 09/08 09/08 1430 0440 [...] catheter can be removed at the b edside according to standard hospital protocol. dry room operator: Jacqueline Fleming PA-C. Impression By: Dolores Pepe MD SPECIAL PROCEDURES - US GUIDANCE VASC ACCESS 1300 Report Impression - Status: SIGNED Entered: 09/08/2018 1447 IMPRESSION: Successful non-tunneled PICC placeme nt via the right basilic vein. PLAN: The catheter is ready for immediate use. W hen treatment is completed, this catheter can be removed at the b edside according to standard hospital protocol. dry room operator: Jacqueline Fleming PA-C. Impression By: Dolores [...] catheter can be removed at the b edside according to standard hospital protocol. dry room operator: Jacqueline Fleming PA-C. Impression By: Dolores Pepe MD SPECIAL PROCEDURES - US GUIDANCE VASC ACCESS 1300 Report Impression - Status: SIGNED Entered: 09/08/2018 1447 IMPRESSION: Successful non-tunneled PICC placeme nt via the right basilic vein. PLAN: The catheter is ready for immediate use. W hen treatment is completed, this catheter can be removed at the [facility] according to standard hospital protocol. dry room operator: Jacqueline Fleming PA-C. Impression By: [email or web address] - Alireza Pepe MD 09/08 09/08 1430 0440 Chemistry [...] 10 MG BID AC 09/06 1630 AC 09/08 PO 10/06 1631 0830 Apixaban 5 MG [...] 08/30 2100 AC 09/08 PO 09/29 2101 0839 Phenol 1 SPRAY Q4H PRN PRN 08/30 1820 AC MM 09/29 1821 Acetaminophen 650 MG Q4H PRN PRN 08/30 1525 AC 09/08 PO 09/29 1446 1341 [employer] 1 XIANG Q12HR 08/29 2100 CKD 09/08 Balsam/Trypsin TOPICAL 09/28 2101 0840 Clotrimazole 1 XIANG BID 08/29 2100 CKD 09/07 TOPICAL 09/28 2101 0807 Pantoprazole 40 MG Q12HR 08/29 2100 AC 09/08 PO 09/28 2101 0840 Vitamin B Complex/ 1 TAB BID 08/28 2100 CKD Vitamin C PO 09/27 2101 0843 Citalopram 40 MG DAILY 08/26 0900 AC 09/08 Hydrobromide PO 09/25 0901 0830 SEE DICTATION Electronically Signed by Jani Mckoy MD 09/08/18 at 1607 RPT #:[id number] END OF REPORT 2018-09-08 13:31:00-00:[address] [facility] ([facility]) Brief Op Note REPORT#:[id number] REPORT STATUS: Signed DATE:09/08/18 TIME: 1331 PATIENT: LEIGH FRYE UNIT #: [id number] ROOM/BED: [address] : 80 AGE: 38 SEX: F ATTEND: Johana Mckoy MD ADM AUTHOR: Jacqueline Fleming * ALL edits or amendments must be made on the [employer] document * Op/Inv Proc Note - Brief Pre-procedure diagnosis: Need for IV access Post-procedure diagnosis: same as pre procedure dx Procedures performed: PICC line placement Primary Surgeon: Jacqueline Fleming PA-C Investment Trader(s): none Anesthesia: local anesthesia Findings: Successful ultrasound and fluoroscopic guided PI CC placement. Pt tolerated procedure well. More detailed report in PACS. Complications: none Estimated blood loss in ml's: <15mL Specimens removed/altered: none Disposition: return to floor, stable Electronically Signed by Jacqueline Fleming on 0 09/08/18 at 1332 RPT #:[id number] END OF REPORT 2018-09-08 13:31:00-00:00 [facility] ([facility]) Brief Op Note REPORT#:[id number] REPORT STATUS: Signed DATE:09/08/18 TIME: 1331 PATIENT: LEIGH FRYE UNIT #: [id number] ROOM/BED: [address] : 80 AGE: 38 SEX: F ATTEND: Johana Mckoy MD ADM AUTHOR: Jacqueline Fleming * ALL edits or amendments must be made on the [employer] document * Op/Inv Proc Note - Brief Pre-procedure diagnosis: Need for IV access Post-procedure diagnosis: same as pre procedure dx Procedures performed: PICC line placement Primary Surgeon: Jacqueline Fleming PA-C Investment Trader(s): none Anesthesia: local anesthesia Findings: Successful ultrasound and fluoroscopic guided PI CC placement. Pt tolerated procedure well. More detailed report in PACS. Complications: none Estimated blood loss in ml's: <15mL Specimens removed/altered: none Disposition: return to floor, stable Electronically Signed by Jacqueline Fleming on 0 09/08/18 at 1332 Electronically Signed by Alireza Pepe MD on 08/21 04/09 at 0937 [facility] #:[id number] END OF REPORT 2018-09-07 15:53:00-00:00 [id number] [facility] [address] [place] [address] PATIENT NAME: LEIGH FRYE ADMIT DATE: 08/25/18 ACCOUNT NO: [id number] ROOM NO: Z.504 AGE: 38 REPORT TYPE: PROGRESS NOTE SEX: F ADMITTING PHYSICIAN:Jani Mckoy MD ATTENDING PHYSICIAN:Jani Mckoy MD DATE: ADDENDUM TO GENERAL PROGRESS NOTE SUBJECTIVE: The patient is a 38-year-old female with pituitary mass, which was removed ____ approached about a week ago. The pa tjnt developed aspiration pneumonia, was back in ICU. 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 She has morbid [...] control is stable, and educated on m ultiple endocrine neoplasia. She has had a previous carcinoid resection and followup urine test for hydroxy and ____ acid is in progress. Replacement therapy with hormo ne is continuous. Symptom wang, she is ____. No change in vision or hearing, de creased cough. No shortness of breath, nausea, vomiting, or diarrhea. No chest pain. Pr ogressing with therapy. Dictated By: Jani Mckoy MD WT: PN:Z.AMANDA/YONATHAN/NTS Conf#: [id number]/DID#: [id number] Authenticated by Jani Mckoy MD On 06:07:16 AM at 0607 PATIENT NAME: LEIGH FRYE 2018-09-07 13:54:00-00:[address] [facility] ([facility] General Progress Note REPORT#:[id number] REPORT STATUS: Signed DATE:09/07/18 TIME: 1354 PATIENT: LEIGH FRYE UNIT #: [id number] AGE: 38 SEX: F ATTEND: Johana Mckoy MD ADM AUTHOR: Jani Mckoy MD * ALL edits or amendments must be made on the [employer] document * Subjective Comments: Vital Signs Date [...] 93 09/06 1309 68 23 145/75 101 18 1200 98.0 09/06 1200 67 34 156/90 115 18 1100 71 25 154/70 101 94 09/06 1030 74 22 153/69 99 91 06/18 [...] 06/17 2230 75 18 149/77 104 95 06/17 2200 74 16 147/68 98 88 06/17 2130 78 18 145/82 107 87 06/17 2100 81 18 134/69 95 91 06/17 2030 87 27 140/64 91 95 06/17 2000 98.1 06/17 2000 90 24 150/75 104 92 06/17 1938 100 Room air 0.008132 21 06/17 1900 80 26 162/92 119 93 06/17 1831 80 24 130/73 105 96 06/17 1800 79 25 161/84 114 98 06/17 1730 77 14 149/86 106 91 06/17 1700 73 22 168/81 117 94 06/17 1630 80 22 145/70 101 95 06/17 1600 98.5 06/17 1600 78 26 163/72 104 95 06/17 1536 86 30 181/78 112 96 06/17 1530 83 23 96 06/17 1500 92 35 98 06/17 1430 80 24 94 06/17 1359 81 25 95 Laboratory Tests: 09/07 0320 Toxicology Vancomycin Trough (10.0 - 20.0 UG/ML) 10.7 Microbiology: 09/05 183 NASOPHARG: Influenza Virus Type [...] HCl 2,000 MG Q12H 09/05 1600 AC 08/20 9 Sodium Chloride 500 ML IV 09/12 1559 [...] Acetate 0.2 MG PC DIN 09/02 1800 AC 09/06 PO 10/02 1801 1818 Polyethylene Glycol 17 GM DAILY 09/01 0925 AC 0 09/07 PO 10/01 0926 0759 Docusate Sodium 100 MG BID 08/30 2100 AC 09/07 PO 09/29 210 0803 Phenol 1 SPRAY Q4H PRN PRN 08/30 1820 AC MM 09/29 1821 Acetaminophen 650 MG Q4H PRN PRN 08/30 1525 AC 09/06 PO 09/29 1446 2048 [employer] 1 XIANG Q12HR 08/29 2100 CKD 09/07 Balsam/Trypsin TOPICAL 09/28 210 0803 Clotrimazole 1 XIANG BID 08/29 2100 CKD 09/07 TOPICAL 09/28 210 0807 Pantoprazole 40 MG Q12HR 08/29 2100 AC 09/07 PO 09/28 210 0803 Vitamin B Complex/ 1 TAB BID 08/28 2099 CKD Vitamin C PO 09/27 2100 0801 Citalopram 40 MG DAILY 08/26 09 AC 09/07 Hydrobromide PO 09/25 0901 0802 SEE DICTATION Electronically Signed by Jani Mckoy MD o n 09/07/18 at 1355 RPT #:[id number] END OF REPORT 2018-09-07 13:53:00-00:[address] [facility] ([facility]) General Progress Note REPORT#:[id number] REPORT STATUS: Signed DATE:09/07/18 TIME: 1353 PATIENT: LEIGH FRYE UNIT #: [id number] ROOM/BED: [address] : 80 AGE: 38 SEX: F ATTEND: Johana Mckoy MD ADM AUTHOR: Jani Mckoy MD * ALL edits or amendments must be made on the [employer]/computer document * Subjective Comments: Vital Signs Date Time Temp Pulse Resp B/P B/P Pulse O2 O2 F low FiO2 Mean Ox Delivery Rate 09/07 1214 98.2 62 15 143/83 103.4 95 Room air 09/07 0840 168/92 117 09/07 0825 98 Room air 21 09/07 0747 97.9 65 162/112 128.5 95 09/07 0325 97.2 64 14 142/84 103.4 95 Room air 06/18 2325 97.3 65 14 156/99 118.0 94 Room air 06/18 2319 100 Room air 06/18 1951 98.1 74 14 142/84 103.5 95 Room air 06/18 1552 98.8 68 16 124/86 98.4 94 [...] 06/17 2230 75 18 149/77 104 95 06/17 2200 74 16 147/68 98 88 06/17 2130 78 18 145/82 107 87 06/17 2100 81 18 134/69 95 91 06/17 2030 87 27 140/64 91 95 06/17 2000 98.1 06/17 2000 90 24 150/75 104 92 06/17 1938 100 Room air 0.257513 21 06/17 1900 80 26 162/92 119 93 06/17 1831 80 24 130/73 105 96 09/05 [...] Mckoy MD o n 09/07/18 at 1353 RPT #:[id number] END OF REPORT 2018-09-06 14:19:00-00:00 [id number] [place] [address] PATIENT NAME: LEIGH FRYE ADMIT DATE: 08/25/18 ACCOUNT NO: [id number] ROOM NO: Z.504 AGE: 38 REPORT TYPE: [...] osteoporosis. Dictated By: Jani Mckoy MD WT: PN:GISSELLE/YONATHAN/JERSON Conf#: [id number]/DID#: [id number] Authenticated by Jani Mckoy MD On 06:07:03 AM at 0607 PATIENT NAME: LEIGH FRYE 2018-09-06 14:10:00-00:00 [id number] [place] [address] PATIENT NAME: LEIGH FRYE ADMIT DATE: 08/25/18 ACCOUNT NO: [id number] ROOM NO: Z.504 AGE: 38 REPORT TYPE: PROGRESS NOTE SEX: F ADMITTING PHYSICIAN:Jani Mckoy MD ATTENDING PHYSICIAN:Jani Mckoy MD DATE: ADDENDUM TO GENERAL PROGRESS NOTE This is a 38-year-old female admitted with heada lois, had a pituitary tumor resected about a [...] area to heal. Ambulation progressed with therapy. 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 Blood sugars [...] manageable. Dictated By: Jani Mckoy MD WT: PN:Arnaldo.AMANDA/YONATHAN/JERSON Conf#: [id number]/DID#: [id number] Authenticated by Jani Mckoy MD On 06:07:00 AM PATIENT NAME: LEIGH FRYE at 0607 PATIENT NAME: LEIGH FRYE 2018-09-06 10:25:00-00:[address] [facility] ([facility]) General Progress Note REPORT#:[id number] REPORT STATUS: Signed DATE:09/06/18 TIME: 1025 PATIENT: LEIGH FRYE UNIT #: [id number] ROOM/BED: [address] : 80 AGE: 38 SEX: F ATTEND: Johana Mckoy MD ADM AUTHOR: Jani Mckoy MD * ALL edits or amendments must be made on the [employer] document * Subjective Comments: SEE DICTATIONVital Signs Date Time Temp Pulse Resp B/P B/P Pulse O2 O2 F low FiO2 Mean Ox Delivery Rate 09/06 0830 68 16 159/93 118 92 / 0800 99.1 09/06 0800 62 14 151/66 95 91 /18 0730 64 18 141/71 101 93 06/18 0700 64 18 136/60 87 91 /18 0600 66 29 136/63 91 89 /18 0530 67 25 140/67 96 96 06/18 [...] 06/18 0000 72 19 130/61 88 93 09/05 2330 77 33 147/65 94 98 06/17 2300 74 22 152/93 112 96 06/17 2230 75 18 149/77 104 95 06/17 2200 74 16 147/68 98 88 06/17 2130 78 18 145/82 107 87 06/17 2100 81 18 134/69 95 91 06/17 2030 87 27 140/64 91 95 06/17 2000 98.1 06/17 2000 90 24 150/75 104 92 06/17 1938 100 Room air 0.506644 21 06/17 1900 80 26 162/92 119 93 06/17 1831 80 24 130/73 105 96 06/17 1800 79 25 161/84 114 98 06/17 1730 77 14 149/86 106 91 06/17 [...] 06/16 2014 89 22 115 98 06/16 2013 99 Venti mask 8.730780 35 06/16 1999 98.6 06/16 1999 84 27 151/73 105 98 06/16 1945 86 20 112 99 06/16 1930 Venti mask 9.710114 35 06/16 1930 87 18 158/81 111 [...] 06/16 1030 92 24 169/74 106 95 Microbiology: 09/05 1830 NASOPHARG: Influenza Virus Type B Ant igen - COMP 09/05 1830 NASOPHARG: Influenza Virus Type A Ant igen - COMP 09/05 0753 URINE: Streptococcus pneumoniae Antig en (M - COMP 09/05 0753 URINE: Legionella Antigen - COMP 09/04 0448 BLOOD: Blood Culture - RES 09/04 0448 BLOOD: Blood Culture - RES 09/04 0445 BLOOD: Blood Culture - RES 09/04 0445 BLOOD: Blood Culture - RES Electronically Signed by Jani Mckoy MD 09/06/18 at 1026 RPT #:[id number] END OF REPORT 2018-09-05 16:56:00-00:00 [id number] [id number] [place] [address] PATIENT NAME: LEIGH FRYE ADMIT DATE: 08/25/18 ACCOUNT NO: [id number] ROOM NO: Z504 AGE: 38 REPORT TYPE: [...] lymphadenopathy. Dictated By: Jani Mckoy MD WT: PN:ZCIERRA/YONATHAN/JERSON Conf#: [id number]/DID#: [id number] Authenticated by Jani Mckoy MD On 06:06:37 AM at 0606 PATIENT NAME: LEIGH FRYE 2018-09-05 13:14:00-00:[address] [facility] ([facility]) General Progress Note REPORT#:[id number] REPORT STATUS: Signed DATE:09/05/18 TIME: 1314 PATIENT: LEIGH FRYE UNIT #: [id number] ROOM/BED: [address] : 80 AGE: 38 SEX: F ATTEND: Johana Mckoy MD ADM AUTHOR: Jani Mckoy MD * ALL edits or amendments must be made on the [employer] document * Subjective Comments: Vital Signs Date Time Temp Pulse Resp B/P B/P Pulse O2 O2 Fl ow FiO2 Mean Ox Delivery Rate 09/05 0800 98.7 09/05 0704 96 Room air 21 09/05 0615 81 18 161/80 110 94 09/05 0606 95 31 161/77 111 92 09/05 0545 77 16 162/93 122 92 09/05 0530 75 17 162/93 121 92 09/05 0515 75 17 160/86 116 94 09/05 0500 76 18 160/82 113 93 09/05 0445 77 18 118 93 09/05 0415 80 22 148/74 106 92 09/05 0330 79 29 158/78 107 96 09/05 0300 78 19 100 94 09/05 0245 77 26 106 91 09/05 0230 75 23 145/70 100 90 09/05 0215 75 17 136/68 95 89 09/05 0200 74 17 105 90 09/05 0145 75 20 134/81 103 93 /17 0130 76 20 127/58 83 92 / 0115 76 19 148/70 103 90 /17 0045 76 20 103 92 / 0030 76 21 93 95 09/05 0015 77 22 149/61 100 93 09/05 0000 98.9 09/05 0000 77 22 107 92 09/04 2345 79 17 87 94 09/04 2330 84 26 161/85 113 90 09/04 2315 92 32 165/87 117 95 09/04 2300 91 31 161/88 116 97 09/04 2245 90 23 145/67 96 95 09/04 2233 90 43 118 94 06/16 2230 [...] 22 115 98 06/16 2012 99 Venti 8.264840 35 mask 06/16 1999 98.6 06/16 1999 84 27 151/73 105 98 06/16 1945 86 20 112 99 06/16 1930 Venti 9.028027 35 mask 06/16 1930 87 18 158/81 [...] 155/70 101 96 06/16 0916 100 Venti 9.246268 35 mask 06/16 0915 86 14 153/70 101 98 06/16 0900 92 27 153/53 102 93 06/16 0845 90 21 94 06/16 0830 87 20 165/78 112 97 06/16 0815 89 30 158/74 107 90 06/16 0800 98.2 06/16 0800 Venti 9.890712 35 mask 06/16 0800 83 32 151/116 131 96 06/16 0732 86 35 157/67 96 100 06/16 0730 85 19 96 06/16 0721 85 20 97 06/16 0706 83 26 94 06/16 0651 84 22 97 06/16 0636 88 17 100 06/16 0621 82 16 95 06/16 0606 80 18 96 06/16 0600 97.0 06/16 0535 77 18 97 06/16 0530 Non 12.431259 rebreathe r mask 06/16 0530 77 19 159/75 108 98 06/16 0521 76 18 99 06/16 0424 97.9 83 20 148/84 105.3 74 Room air /15 2339 98.2 73 15 139/82 101.2 94 Room air /15 2315 98.1 84 16 138/87 104.4 93 Room air /15 1945 98.1 98 16 156/88 110.6 95 Room air 06/15 1525 97.7 82 14 150/80 103.1 92 [...] dictation Electronically Signed by Jani Mckoy MD o n 09/05/18 at 1316 RPT #:[id number] END OF REPORT 2018-09-05 12:45:00-00:[address] [facility] ([facility]) Neurosurgical Progress Note REPORT#:[id number] REPORT STATUS: Signed DATE:09/05/18 TIME: 1245 PATIENT: LEIGH FRYE UNIT #: [id number] ROOM/BED: [address] : 80 AGE: 38 SEX: F ATTEND: Johana Mckoy MD ADM AUTHOR: Tanya Rodriguez TILE SPRAYER * ALL edits or amendments must be made on the [employer]/computer document * Subjective Chief Complaint: headaches Objective [...] Acetaminophen 650 MG Q4H PRN PRN PO [place] Balsam/Trypsin 1 XIANG Q12HR T OPICAL (CKD) [...] non-tender, normal bowel sounds, soft, no distention 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: alert, oriented X 3, CN II-XII intact, [...] NP on 08/20 12/08 at 1614 RPT #:[id number] END OF REPORT 2018-09-05 12:45[facility]00-00:[address] [facility] Neurosurgical Progress Note REPORT#:[id number] REPORT STATUS: Signed DATE:09/05/18 TIME: 1245 PATIENT: LEIGH FRYE UNIT #: [id number] ROOM/BED: [address] : 80 AGE: 38 SEX: F ATTEND: Johana Mckoy MD ADM AUTHOR: Tanya Rodriguez NP * ALL edits or amendments must be made on the [employer]/computer document * Tanya Rodriguez NP 09/05/18 1245: Subjective Chief Complaint: headaches Objective General VS/I O: Vital Signs Date Temp Pulse Resp B/P B/P Mean Pulse Ox FiO 2 09/04-09/05 97.8-98.9 74-95 16-47 127-173/56-93 83-132 89-100 [...] Acetaminophen 650 MG Q4H PRN PRN PO [place] Balsam/Trypsin 1 XIANG Q12HR T OPICAL (CKD) [...] non-tender, normal bowel sounds, soft, no distention 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: alert, oriented X 3, CN II-XII intact, [...] pneumoniae Antigen (M - COMP URINE 09/05 075 Legionella Antigen - COMP URINE Diagnosis, Assessment Plan Free Text A P: A: 38 year old female now POD#6 from transspheno idal resection of pituitary adenoma P: Okay to restart anticoagulation 7 days post op, which will be tomorrow Continue packing for another 7 days Unasyn for 10 days PT/OT Can transfer out of ICU from a neurosurgical sta [facility] Ozzy Viera 09/07/18 2146: Diagnosis, Assessment Plan Additional comments: Agree with above Electronically Signed by Tanya Rodriguez NP on 08/20 12/08 at 1614 RPT #:[id number] END OF REPORT 2018-09-05 12:45:00-00:00 [facility] ([facility]) Neurosurgical Progress Note REPORT#:[id number] REPORT STATUS: Signed DATE:09/05/18 TIME: 1245 PATIENT: LEIGH FRYE UNIT #: [id number] ROOM/BED: [facility] : 80 AGE: 38 SEX: F ATTEND: Johana Mckoy MD ADM AUTHOR: Tanya Rodriguez NP * ALL edits or amendments must be made on the el [employer]ronic/computer document * Tanya Rodriguez TILE SPRAYER 09/05/18 1245: Subjective Chief Complaint: headaches Objective [...] Acetaminophen 650 MG Q4H PRN PRN PO [place] [employer]/[place] Balsam/Trypsin 1 XIANG Q12HR T OPICAL (CKD) [...] non-tender, normal bowel sounds, soft, no distention 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: alert, oriented X 3, CN II-XII intact, [...] Date/Time Procedure - Status Source Growth 09/05 0753 Streptococcus pneumoniae Antigen (M - COMP URINE 09/05 0753 Legionella Antigen - COMP URINE Diagnosis, Assessment Plan Free Text A P: A: 38 year old female now POD#6 from transspheno idal resection of pituitary adenoma P: Okay to restart anticoagulation 7 days post op, which will be tomorrow Continue packing for another 7 days Unasyn for 10 days PT/OT Can transfer out of ICU [facility] a [facility] Ozzy Viera 09/07/18 5695: Diagnosis, Assessment Plan Additional comments: Agree with above Electronically Signed by Tanya Rodriguez NP on 08/20 12/08 at 1614 Electronically Signed by Ozzy Viera MD on 08/20 12/08 at 2147 RPT #:[id number] END OF REPORT 2018-09-05 08:42:00-00:[address] [facility] ([facility]) Critical Care Progress Note REPORT#:[id number] REPORT STATUS: Signed DATE:09/05/18 TIME: 08 PATIENT: LEIGH FRYE UNIT #: [id number] ROOM/BED: [address] : 80 AGE: 38 SEX: F ATTEND: Johana Mckoy MD ADM AUTHOR: DOMINGUEZ CORTES * ALL edits or amendments must be made on the [employer]/computer document * Subjective Chief Complaint: HCAP Comments: [...] Temp 37.2 09/05 0000 O2 Flow Rate 8.513144 09/04 2012 24 hour I O ending [...] Acetaminophen 650 MG Q4H PRN PRN PO [place] [employer]/[place] Balsam/Trypsin 1 XIANG Q12HR T OPICAL (CKD) [...] Extremities: edema, moves all Musculoskeletal: decreased ROM 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: alert, oriented X 3, no motor deficit [...] 43.5 %) 24.7 L Laboratory Tests 09/05 449 Toxicology Vancomycin Trough (10.0 - 20.0 UG/ML) [...] will need probably to be on lifelong a nticoagulate She should be started on anticoagulation as [...] Complete BASIC METABOLIC PANEL 09/06 711 Complete at 1215 RPT #:[id number] END OF REPORT 2018-09-05 08:42:00-00:[address] [facility] ([facility]) Critical Care Progress Note REPORT#:[id number] REPORT STATUS: Signed DATE:09/05/18 TIME: 841 PATIENT: LEIGH FRYE UNIT #: [id number] ROOM/BED: [address] : 80 AGE: 38 SEX: F ATTEND: Johana Mckoy MD ADM AUTHOR: DOMINGUEZ CORTES * ALL edits or amendments must be made on the [employer]/computer document * Prakash Cortes 09/05/18 0842: Subjective [...] Temp 37.2 09/05 0000 O2 Flow Rate 8.351117 09/04 2012 24 hour I O ending [...] Acetaminophen 650 MG Q4H PRN PRN PO [place] [employer]/[place] Balsam/Trypsin 1 XIANG Q12HR T OPICAL (CKD) [...] Extremities: edema, moves all Musculoskeletal: decreased ROM 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: alert, oriented X 3, no motor deficit [...] She should be started on anticoagulation as pm n as she is cleared by neurosurgery service vascular US negative for DVT 09/04 Stable for transfer out of ICU. CC team will sig n off. f/u 35 mins Orders: Procedure Date/time Status RT: Nebulizer Treatment 09/05 713 Active WHITE BLOOD CELL 09/06 711 Complete MAGNESIUM 09/05 07 Complete HGB HCT 09/05 07 Complete BASIC METABOLIC PANEL 09/05 07 Complete Sher Vyas 09/05/18 1814: Diagnosis, Assessment [...] y Ms janie ARTIS at 1215 at 1819 RPT #:[id number] END OF REPORT 2018-09-04 13:30:00-00:[address] [facility] ([facility]) Neurosurgical Progress Note REPORT#:[id number] REPORT STATUS: Signed DATE:09/04/18 TIME: 1330 PATIENT: LEIGH FRYE UNIT #: [id number] ROOM/BED: [address] : 80 AGE: 38 SEX: F ATTEND: Johana Mckoy MD ADM AUTHOR: Ozzy Viera MD * ALL edits or amendments must be made on the el [employer]/computer document * Subjective Chief Complaint: She notes headaches. She was brought [facility] to ICU for hypoxia. Here in ICU, [...] no distention Genitourinary: deferred Musculoskeletal: normal inspection 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: alert, oriented X 3, CN II-XII intact, [...] H PG/ML) Procalcitonin (NG/ML) < 0.05 09/04 09/04 09/04 09/04 0445 0445 0445 0430 Chemistry Sodium (137 - [...] % (Auto) (14 - 44 %) 27.2 Ballard % (Auto) (4 - 13 %) 4.0 Eos % (Auto) (0 - 6 %) 2.5 Baso % (Auto) (0 - 2 %) 0.1 Neut # (Auto) (2.0 - 7.6 K/mm3) 4.46 Lymph # (Auto) (1.0 - 3.8 K/mm3) 1.85 Ballard # (Auto) (0.1 - 0.8 K/mm3) 0.27 [...] oncerning for pneumonia is seen. Impression By: Jose - Cabrera Ngo MD CAT SCAN - [...] Viera MD on 08/20 09/07 at 1333 [facility] #:[id number] END OF REPORT 2018-09-04 12:24:00-00:00 [id number] [place] [address] PATIENT NAME: LEIGH FRYE ADMIT DATE: 08/25/18 ACCOUNT NO: [id number] ROOM NO: Z.SI08 AGE: 38 REPORT TYPE: eVENOUS ULTRASOUND SEX: F ADMITTING PHYSICIAN:Jani Mckoy MD ATTENDING PHYSICIAN:Jani Mckoy MD *[facility]* [address] [place], [place] [id number] Lower Extremity Venous Duplex Evaluation Patient: Leigh Frye Study Date: 09/04/2018 BP: 165 / 78 Location: [facility] URN: [id number] : 1980 Age: 38 Height: 73 in / 185.4 cm Gender: F Weight: 411 lb / 186.8 kg BMI/BSA: 54.3 kg/m 2 / 3.2 m 2 *Ordering Physician: Bear Harrison *Interpreting Physician: Hunter Hardy MD *Sheet Metal Mechanic: Annetta Fierro, T Indications: Swelling of limb. Pain. Study data: Lower extremity venous duplex evalua tion. Bilateral evaluation with grayscale 2D imaging, color Dopp ler imaging, and spectral Doppler analysis. Location: [facility] status: Inpatient. Patient room number: 8. Procedure: A vascular ev aluation was performed. Images were obtained using a [employer] ultrasound machine. Image quality was suboptimal. The [...] s performed. Images were obtained using a [employer] vascular ultrasound machine . Image quality was suboptimal. The study was technically limited d ue to obesity. Prepared and electronically signed by Hunter Acevedo MD 09/04/2018 12:23 at 1224 PATIENT NAME: LEIGH FRYE 2018-09-04 11:18:00-00:00 [facility] Internal Medicine Prog. Note REPORT#:[id number] REPORT STATUS: Signed DATE:09/04/18 TIME: 1118 PATIENT: LEIGH FRYE UNIT #: [id number] ROOM/BED: [facility] : 80 AGE: 38 SEX: F ATTEND: Johana Mckoy MD ADM AUTHOR: Robert Rothman MD * ALL edits or amendments must be made on the [employer]/computer document * Subjective Comments: Transfered to ICU [...] 09/04 0916 O2 Delivery Venti mask 09/04 0916 O2 Flow Rate 9.011293 09/04 0916 Pulse 85 09/04 0730 Resp [...] 4 MG Q4H PRN PRN IV (DC) [place] [employer]/[place] Balsam/Trypsin 1 XIANG Q12HR T OPICAL (CKD) [...] no cyanosis, no edema Musculoskeletal: decreased ROM 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: disoriented Skin: no rash Lymphatics: no lymphadenopathy [...] H PG/ML) Procalcitonin (NG/ML) < 0.05 09/04 09/04 09/04 09/04 0445 0445 0445 0430 Chemistry Sodium (137 - [...] - 22.7 ug/dL) 3.62 L Laboratory Tests 09/04 0448 Coagulation INR (0.8 - 1.1) 1.0 APTT (22.0 - 33.0 SECONDS) 27.5 PT Patient/Control Mix (9.6 - 11.6 SECONDS) 10. 3 Laboratory Tests 09/04 0448 Hematology WBC (3.8 - 9.8 K/MM3) 6.8 [...] % (Auto) (14 - 44 %) 27.2 Ballard % (Auto) (4 - 13 %) 4.0 Eos % (Auto) (0 - 6 %) 2.5 Baso % (Auto) (0 - 2 %) 0.1 Neut # (Auto) (2.0 - 7.6 K/mm3) 4.46 Lymph # (Auto) (1.0 - 3.8 K/mm3) 1.85 Ballard # (Auto) (0.1 - 0.8 K/mm3) 0.27 [...] Robert Rothman MD on at 0900 RPT #:[id number] END OF REPORT 2018-09-04 05:37:00-00:00 [facility] ([facility]) Critical Care Progress Note REPORT#:[id number] REPORT STATUS: Signed DATE:09/04/18 TIME: 05 PATIENT: LEIGH FRYE UNIT #: [id number] [address] AGE: 38 SEX: F ATTEND: Johana Mckoy MD ADM AUTHOR: Bear Wells MD * ALL edits or amendments must be made on the el [employer]/computer document * Subjective Comments: Ms. Frye is [...] Pulse Ox 74 09/05 423 B/P 148/84 09/05 423 B/P Mean 105.3 09/05 423 O2 Delivery Room air 09/05 423 Temp 36.6 09/05 423 Pulse 83 09/05 423 Resp 20 09/05 423 O2 Flow Rate 10.913164 08/30 1615 24 hour I O ending at 0700: 09/04 0700 15 1900 Intake Total 1900.00 Output Total 2800 [...] HCl 4 MG Q4H PRN PRN IV [place] [employer]/[place] Balsam/Trypsin 1 XIANG Q12HR T OPICAL (CKD) [...] Extremities: edema, moves all Musculoskeletal: decreased ROM 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: alert, oriented X 3, no motor deficit s Results Findings/Data: Laboratory Tests 09/04/18447: [Embedded Image Not Available] 09/04/18444: [Embedded Image Not Available] Laboratory Tests 09/05 [...] % (Auto) (14 - 44 %) 27.2 Ballard % (Auto) (4 - 13 %) 4.0 Eos % (Auto) (0 - 6 %) 2.5 Baso % (Auto) (0 - 2 %) 0.1 Neut # (Auto) (2.0 - 7.6 K/mm3) 4.46 Lymph # (Auto) (1.0 - 3.8 K/mm3) 1.85 Ballard # (Auto) (0.1 - 0.8 K/mm3) 0.27 [...] 09/04 444 BLOOD: Blood Culture - RECD 09/03 2119 NASAL: MRSA Screen - RECD Radiology data Recent Impressions: RADIOLOGY - XR CHEST 1V 09/04 0441 Report Impression - Status: SIGNED Entered: 09/04/2018 0502 IMPRESSION: 1. Patchy consolidation at the right lung base c oncerning for pneumonia is seen. Impression By: [email or web address] - Cabrera Ngo MD Results: labs reviewed, [...] emergent CT scan of the chest wi contrast PE protocol Patient has contraindication to [...] in direct care of the patient managing pat cindy s acute respiratory failure with hypoxia and to commenting in the me dical record This patient has a high [...] Wells MD on 08/20 09/07 at 0621 RPT #:[id number] END OF REPORT 2018-09-04 04:58:00-00:[address] [facility] ([facility]) Rapid Response Note REPORT#:[id number] REPORT STATUS: Signed DATE:09/04/18 TIME: 457 PATIENT: LEIGH FRYE UNIT #: [id number] ROOM/BED: [address] : 80 AGE: 38 SEX: F ATTEND: Johana Mckoy MD ADM AUTHOR: Bear Wells MD * ALL edits or amendments must be made on the [employer]/computer document * Rapid Response Note Response location: 53 Primary service: internal medicine Reason response was called: hypoxemia Initial findings: hypoxemia Interventions: meds administered, lab ordered, r ad ordered Result of the response: transferred to SICU Primary service present during No Primary service notified: Yes Attending notified: Yes (Dr. Rothman covering for Dr. Mckoy) Family notified (whom): left msg at [phone] Comments: Right response was called for hypoxemia patient' s oxygen saturation went down from mid 90s to mid 70s, please see my full cons ult note for detail Electronically Signed by Bear Wells MD on 08/20 09/07 at 0500 RPT #:[id number] END OF REPORT 2018-09-04 04:46:00-00:00 [id number] [facility] [address] [place] [address] PATIENT NAME: LEIGH FRYE ADMIT DATE: 08/25/18 ACCOUNT NO: [id number] ROOM NO: [facility] AGE: 38 REPORT TYPE: ELECTROCARDIOGRAM SEX: F ADMITTING PHYSICIAN:Jani Mckoy MD ATTENDING PHYSICIAN:Jani Mckoy MD Order: [id number] Test Reason : CHEST PAIN Test Date/Time [...] 0809 PATIENT NAME: LEIGH FRYE 2018-09-03 10:54:00-00:00 [facility] Internal Medicine Prog. Note REPORT#:[id number] REPORT STATUS: Signed DATE:09/03/18 TIME: 1054 PATIENT: LEIGH FRYE UNIT #: [id number] ROOM/BED: [address] : 80 AGE: 38 SEX: F ATTEND: Johana Mckoy MD ADM AUTHOR: Robert Rothman MD * ALL edits or amendments must be made on the [employer]/computer document * Subjective Patient reports: no complaints [...] Resp 13 09/03 0734 O2 Flow Rate 10.899350 08/30 1615 24 hour I O ending [...] Sodium Chloride 1,000 ML .Q20H IV (DC) [place] Balsam/Trypsin 1 XIANG Q12HR T OPICAL (CKD) [...] 1643: [Embedded Image Not Available] Laboratory Tests 06/09/03 0503 0503 2200 2200 1643 Chemistry Sodium [...] % (Auto) (14 - 44 %) 33.8 Ballard % (Auto) (4 - 13 %) 4.8 Eos % (Auto) (0 - 6 %) 2.9 Baso % (Auto) (0 - 2 %) 0.1 Neut # (Auto) (2.0 - 7.6 K/mm3) 3.95 Lymph # (Auto) (1.0 - 3.8 K/mm3) 2.31 Ballard # (Auto) (0.1 - 0.8 K/mm3) 0.33 Eos # (Auto) (0.0 - 0.2 K/mm3) 0.20 Baso # (Auto) (0.0 - 0.2 K/mm3) 0.01 Immature Gran % (0.0 - 2.0 %) 0.6 Nucleated RBC % (0 - 1.0 %) 0.0 Nucleated RBCs # (Man) (0.0 - 0.1 K/mm3) 0.00 Laboratory Tests 09/02 2121 Urines Ur Specific [place] (1.003 - 1.030) 1.025 Free Text Obj Notes Free Text Obj Notes: Physical Exam Head/Eyes: atraumatic, normocephalic ENT: normal nose, normal pharynx, normal sinus Neck: no bruit/NL carotids, no JVD, no lymphaden opathy Cardiovascular: regular rate rhythm, no murmur Respiratory: decreased breath sounds Abdomen: non-tender, normal bowel sounds, soft, no mass/organomegaly Extremities: Extremities: no clubbing, no cyanosis, no edema Musculoskeletal: decreased ROM 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: disoriented Skin: no rash Lymphatics: no lymphadenopathy Diagnosis, Assessment Plan Free Text A P: ASSESSMENT 1. Pituitary adenoma: s/p transsphenoidal resect ion. 2. HTN. 3. Microcytic anemia with iron deficiency. 4. HTN. 5. Morbid obesity. PLAN PT/OT Pain medication as needed Unasyn for 10 days FeSO4 Electronically Signed by Robert Rothman MD on at 1703 RPT #:[id number] END OF REPORT 2018-09-02 14:53:00-00:00 [id number] [place] [address] PATIENT NAME: LEIGH FRYE ADMIT DATE: 08/25/18 ACCOUNT NO: [id number] ROOM NO: Z.504 AGE: 38 REPORT TYPE: PROGRESS NOTE SEX: F ADMITTING PHYSICIAN:Jani Mckoy MD ATTENDING PHYSICIAN:Jani Mckoy MD DATE: ADDENDUM TO GENERAL PROGRESS NOTE SUBJECTIVE: A 38-year-old female transferred [facility] with pituitary adenoma resection 3 [...] By: Jani Mckoy MD WT: PN:GISSELLE/YONATHAN/JERSON Conf#: [id number]/DID#: [id number] Authenticated by Jani Mckoy MD On 06:05:11 AM PATIENT NAME: LEIGH FRYEINE at 0605 PATIENT NAME: LEIGH FRYE 2018-09-02 14:10:00-00:[address] [facility] General Progress Note REPORT#:[id number] REPORT STATUS: Signed DATE:09/02/18 TIME: 1410 PATIENT: LEIGH FRYE UNIT #: [id number] ROOM[address]BED: [address] : 80 AGE: 38 SEX: F ATTEND: Johana Mckoy MD ADM AUTHOR: Jani Mckoy MD * ALL edits or amendments must be made on the el [employer]/computer document * Subjective Comments: Vital Signs Date Time Temp Pulse Resp B/P B/P Pulse O2 O2 F low FiO2 Mean Ox Delivery Rate 09/02 0800 97.6 09/02 0740 79 27 97 09/02 0730 74 25 99 09/02 0715 77 14 98 09/02 0700 73 15 110/55 79 95 09/02 0600 73 19 116/59 85 95 09/02 0500 72 14 119/57 82 97 09/02 0400 96.5 09/02 0400 68 16 113/56 80 97 / 0300 66 18 116/66 85 99 /14 0200 66 15 118/56 81 94 /14 0100 64 14 98/53 73 96 /14 0000 97.1 09/02 0000 68 17 100/50 72 96 06/13 2300 61 13 111/59 81 97 06/13 2200 78 19 99 06/13 2100 81 22 116/59 85 100 06/13 2050 80 33 142/63 90 100 06/13 2000 83 19 99 06/13 1908 97.6 06/13 1900 73 29 96 06/13 1800 70 31 122/58 81 98 06/13 1702 71 21 132/91 105 99 06/13 1600 98.1 06/ 1600 79 26 99 06/13 1515 75 21 98 06/13 1442 74 24 136/60 86 100 06/13 1347 76 23 111/54 78 99 06/13 1300 73 20 112/53 77 99 06/13 1200 75 27 110/53 76 98 06/13 1143 97.9 06/ 1142 74 22 126/56 81 99 06/13 0917 79 45 122/54 78 98 06/13 0817 83 26 126/61 87 99 06/13 0800 98.3 06/ 0717 78 18 123/59 85 96 06/13 0617 79 16 116/55 79 97 06/13 0517 82 19 128/60 86 97 09/01 0417 82 18 118/73 89 96 09/01 0400 97.4 09/01 0317 80 17 112/59 78 96 09/01 0217 78 18 119/56 81 95 09/01 0117 79 16 112/52 75 96 / 0017 82 28 119/63 87 97 / 0000 97.7 08/31 2317 81 34 104/51 73 98 08/31 2230 18 97 08/31 2217 127 121/91 98 96 08/31 2117 132 19 129/88 103 96 08/31 2016 129 21 119 09/01 1999 97.6 09/01 1999 126 17 94 08/31 1945 128 22 97 08/31 1917 88 115/55 79 95 08/31 1900 85 94 08/31 1817 83 119/58 [...] abnormality. Impression By: [email or web address] Robert Avila MD SEE DICTATION Electronically Signed by Jani Mckoy MD o n 09/02/18 at 1411 RPT #:[id number] END OF REPORT 2018-09-02 11:15:00-00:[address] [facility] Neurosurgical Progress Note REPORT#:[id number] REPORT STATUS: Signed DATE:09/02/18 TIME: 1115 PATIENT: LEIGH FRYE UNIT #: [id number] ROOM/BED: [address] : 80 AGE: 38 SEX: F ATTEND: Johana Mckoy MD ADM AUTHOR: Tanya Rodriguez, TILE SPRAYER * ALL edits or amendments must be made on the el [employer]/computer document * Subjective Comments: Patient seen at [...] IV Sodium Chloride 1,000 ML .Q20H IV [place] Oil/[place] Balsam/Trypsin 1 XIANG Q12HR T OPICAL (CKD) [...] non-tender, normal bowel sounds, soft, no distention 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: alert, oriented X 3, CN II-XII intact, [...] % (Auto) (14 - 44 %) 37.2 Ballard % (Auto) (4 - 13 %) 6.2 Eos % (Auto) (0 - 6 %) 2.0 Baso % (Auto) (0 - 2 %) 0.2 Neut # (Auto) (2.0 - 7.6 K/mm3) 4.44 Lymph # (Auto) (1.0 - 3.8 K/mm3) 3.10 Ballard # (Auto) (0.1 - 0.8 K/mm3) 0.52 Eos # (Auto) (0.0 - 0.2 K/mm3) 0.17 Baso # (Auto) (0.0 - 0.2 K/mm3) 0.02 Immature Gran % (0.0 - 2.0 %) 1.0 Nucleated RBC % (0 - 1.0 %) 0.0 Nucleated RBCs # (Man) (0.0 - 0.1 K/mm3) 0.00 Laboratory Tests 09/02 09/01 09/01 0625 2035 1300 Urines Ur Specific [place] (1.003 - 1.030) 1.010 1.015 1.020 Diagnosis, Assessment Plan Free Text A P: A: 38 year old female now POD#3 from transspheno idal resection of pituitary adenoma P: Urine output and labs stable Okay to transfer out of ICU today, orders placed PT/OT Pain medication as needed Unasyn for 10 days Electronically Signed by Tanya Rodriguez NP on 08/20 10/07 at 1258 RPT #:[id number] END OF REPORT 2018-09-02 11:15:00-00:00 [facility] ([facility]) Neurosurgical Progress Note REPORT#:[id number] REPORT STATUS: Signed DATE:09/02/18 TIME: 1114 PATIENT: LEIGH FRYE UNIT #: [id number] ROOM/BED: [address] : 80 AGE: 38 SEX: F ATTEND: Johana Mckoy MD ADM AUTHOR: Tanya Rodriguez NP * ALL edits or amendments must be made on the el ectronic/computer document * Tanya Rodriguez NP 09/02/18 1115: [...] IV Sodium Chloride 1,000 ML .Q20H IV [place] [employer]/[place] Balsam/Trypsin 1 XIANG Q12HR T OPICAL (CKD) [...] non-tender, normal bowel sounds, soft, no distention 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: alert, oriented X 3, CN II-XII intact, [...] % (Auto) (14 - 44 %) 37.2 Ballard % (Auto) (4 - 13 %) 6.2 Eos % (Auto) (0 - 6 %) 2.0 Baso % (Auto) (0 - 2 %) 0.2 Neut # (Auto) (2.0 - 7.6 K/mm3) 4.44 Lymph # (Auto) (1.0 - 3.8 K/mm3) 3.10 Ballard # (Auto) (0.1 - 0.8 K/mm3) 0.52 Eos # (Auto) (0.0 - 0.2 K/mm3) 0.17 Baso # (Auto) (0.0 - 0.2 K/mm3) 0.02 Immature Gran % (0.0 - 2.0 %) 1.0 Nucleated RBC % (0 - 1.0 %) 0.0 Nucleated RBCs # (Man) (0.0 - 0.1 K/mm3) 0.00 Laboratory Tests 09/02 09/01 09/01 0625 2035 1300 Urines Ur Specific [place] (1.003 - 1.030) 1.010 1.015 1.020 Diagnosis, [...] NP on 08/20 10/07 at 1258 RPT #:[id number] END OF REPORT 2018-09-02 11:15:00-00:00 [facility] ([facility]) Neurosurgical Progress Note REPORT#:[id number] REPORT STATUS: Signed DATE:09/02/18 TIME: 111 PATIENT: LEIGH FRYE UNIT #: [id number] ROOM/BED: [address] : 80 AGE: 38 SEX: F ATTEND: Johana Mckoy MD ADM AUTHOR: Tanya Rodriguez NP * ALL edits or amendments must be made on the el [employer]/computer document * Tanya Rodriguez NP 09/02/18 1115: [...] IV Sodium Chloride 1,000 ML .Q20H IV [place] [employer]/[place] Balsam/Trypsin 1 XIANG Q12HR T OPICAL (CKD) [...] non-tender, normal bowel sounds, soft, no distention 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: alert, oriented X 3, CN II-XII intact, [...] % (Auto) (14 - 44 %) 37.2 Ballard % (Auto) (4 - 13 %) 6.2 Eos % (Auto) (0 - 6 %) 2.0 Baso % (Auto) (0 - 2 %) 0.2 Neut # (Auto) (2.0 - 7.6 K/mm3) 4.44 Lymph # (Auto) (1.0 - 3.8 K/mm3) 3.10 Ballard # (Auto) (0.1 - 0.8 K/mm3) 0.52 Eos # (Auto) (0.0 - 0.2 K/mm3) 0.17 Baso # (Auto) (0.0 - 0.2 K/mm3) 0.02 Immature Gran % (0.0 - 2.0 %) 1.0 Nucleated RBC % (0 - 1.0 %) 0.0 Nucleated RBCs # (Man) (0.0 - 0.1 K/mm3) 0.00 Laboratory Tests 09/02 09/01 09/01 0625 203 1300 Urines Ur Specific [place] (1.003 - 1.030) 1.010 1.015 1.020 Diagnosis, [...] NP on 08/20 10/07 at 1258 RPT #:[id number] END OF REPORT 2018-09-02 11:15:00-00:00 [facility] ([facility]) Neurosurgical Progress Note REPORT#:[id number] REPORT STATUS: Signed DATE:09/02/18 TIME: 1114 PATIENT: LEIGH FRYE UNIT #: [id number] AGE: 38 SEX: F ATTEND: Johana Mckoy MD ADM AUTHOR: Tanya Rodriguez NP * ALL edits or amendments must be made on the el ectronic/computer document * Tanya Rodriguez NP 09/02/18 1115: [...] IV Sodium Chloride 1,000 ML .Q20H IV [place] Balsam/Trypsin 1 XIANG Q12HR T OPICAL (CKD) [...] non-tender, normal bowel sounds, soft, no distention 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: alert, oriented X 3, CN II-XII intact, EOMI, PERRL, normal reflexes, normal speech, reflexes equal bilat, no motor de ficits, no sensory deficits Results Findings/Data: Laboratory Tests 09/020 0450 3 3 1303 Chemistry Sodium (137 - 145 MMOL/L) [...] % (Auto) (14 - 44 %) 37.2 Ballard % (Auto) (4 - 13 %) 6.2 Eos % (Auto) (0 - 6 %) 2.0 Baso % (Auto) (0 - 2 %) 0.2 Neut # (Auto) (2.0 - 7.6 K/mm3) 4.44 Lymph # (Auto) (1.0 - 3.8 K/mm3) 3.10 Ballard # (Auto) (0.1 - 0.8 K/mm3) 0.52 Eos # (Auto) (0.0 - 0.2 K/mm3) 0.17 Baso # (Auto) (0.0 - 0.2 K/mm3) 0.02 Immature Gran % (0.0 - 2.0 %) 1.0 Nucleated RBC % (0 - 1.0 %) 0.0 Nucleated RBCs # (Man) (0.0 - 0.1 K/mm3) 0.00 Laboratory Tests 09/0225 2034 1300 Urines Ur Specific [place] (1.003 - 1.030) 1.010 1.015 1.020 Diagnosis, [...] MD on 08/20 11/07 at 2243 RPT #:[id number] END OF REPORT 2018-09-01 15:54:00-00:00 [facility] ([facility]) Neurosurgical Progress Note REPORT#:[id number] REPORT STATUS: Signed DATE:09/01/18 TIME: 1554 PATIENT: LEIGH FRYE UNIT #: [id number] ROOM/BED: [facility] : 80 AGE: 38 SEX: F ATTEND: Johana Mckoy MD ADM AUTHOR: Tanya Rodriguez NP * ALL edits or amendments must be made on the el [employer]/computer document * Subjective Comments: Nasal drainage slowed [...] IV Sodium Chloride 1,000 ML .Q20H IV [place] Balsam/Trypsin 1 XIANG Q12HR T OPICAL (CKD) [...] rate rhythm Respiratory: no distress, symmetric expansion 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: alert, oriented X 3, CN II-XII intact, [...] % (Auto) (14 - 44 %) 18.1 Ballard % (Auto) (4 - 13 %) 8.3 Eos % (Auto) (0 - 6 %) 0.5 Baso % (Auto) (0 - 2 %) 0.1 Neut # (Auto) (2.0 - 7.6 K/mm3) 8.40 H Lymph # (Auto) (1.0 - 3.8 K/mm3) 2.13 Ballard # (Auto) (0.1 - 0.8 K/mm3) 0.98 [...] 0835 2320 1955 1735 Urines Ur Specific [place] (1.003 - 1.030) 1.020 1.015 1.005 1.010 [...] NP on 08/20 06/07 at 1557 RPT #:[id number] END OF REPORT 2018-09-01 15:54:00-00:00 [facility] ([facility]) Neurosurgical Progress Note REPORT#:[id number] REPORT STATUS: Signed DATE:09/01/18 TIME: 1554 PATIENT: LEIGH FRYE UNIT #: [id number] ROOM/BED: [address] : 80 AGE: 38 SEX: F ATTEND: Johana Mckoy MD ADM AUTHOR: Tanya Rodriguez NP * ALL edits or amendments must be made on the el [employer]/computer document * Tanya Rodriguez NP 09/01/18 1554: [...] IV Sodium Chloride 1,000 ML .Q20H IV [place] [employer]/[place] Balsam/Trypsin 1 XIANG Q12HR T OPICAL (CKD) [...] rate rhythm Respiratory: no distress, symmetric expansion 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: alert, oriented X 3, CN II-XII intact, [...] % (Auto) (14 - 44 %) 18.1 Ballard % (Auto) (4 - 13 %) 8.3 Eos % (Auto) (0 - 6 %) 0.5 Baso % (Auto) (0 - 2 %) 0.1 Neut # (Auto) (2.0 - 7.6 K/mm3) 8.40 H Lymph # (Auto) (1.0 - 3.8 K/mm3) 2.13 Ballard # (Auto) (0.1 - 0.8 K/mm3) 0.98 [...] 0835 2320 1955 1735 Urines Ur Specific [place] (1.003 - 1.030) 1.020 1.015 1.005 1.010 [...] until tomorrow PT/OT Pain medication as needed MaximilianoOzzy 09/02/18 1348: Diagnosis, Assessment Plan Additional comments: Agree with above Electronically Signed by Tanya Rodriguez NP on 08/20 06/07 at 1557 RPT #:[id number] END OF REPORT 2018-09-01 15:54:00-00:00 [facility] ([facility]) Neurosurgical Progress Note REPORT#:[id number] REPORT STATUS: Signed DATE:09/01/18 TIME: 1554 PATIENT: LEIGH FRYE UNIT #: [id number] ROOM/BED: [address] : 80 AGE: 38 SEX: F ATTEND: Tho Mckoy MD ADM AUTHOR: Tanya Rodriguez NP * ALL edits or amendments must be made on the [employer]/computer document * Tanya Rodriguez NP 09/01/18 6624: Subjective Comments: Nasal drainage slowed significantly last [...] IV Sodium Chloride 1,000 ML .Q20H IV [place] Balsam/Trypsin 1 XIANG Q12HR TOPICAL (CKD) Clotrimazole [...] rate rhythm Respiratory: no distress, symmetric expansion 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: alert, oriented X 3, CN II-XII intact, [...] Baseline (1.7 - 22.7 ug/dL) 9.19 08/31 2038 Chemistry Sodium (137 - 145 MMOL/L) 141 Laboratory Tests 09/010 Coagulation INR (0.8 - 1.1) 1.0 APTT [...] % (Auto) (14 - 44 %) 18.1 Ballard % (Auto) (4 - 13 %) 8.3 Eos % (Auto) (0 - 6 %) 0.5 Baso % (Auto) (0 - 2 %) 0.1 Neut # (Auto) (2.0 - 7.6 K/mm3) 8.40 H Lymph # (Auto) (1.0 - 3.8 K/mm3) 2.13 Ballard # (Auto) (0.1 - 0.8 K/mm3) 0.98 [...] 0835 2320 1955 1735 Urines Ur Specific [place] (1.003 - 1.030) 1.020 1.015 1.005 1.010 [...] Ozzy Viera MD on 08/20 07/08 at 5299 RPT #[id number] END OF REPORT 2018-09-01 12:49:00-00:00 [id number] [address] PATIENT NAME: LEIGH FRYE ADMIT DATE: 08/25/18 ACCOUNT NO: [id number] ROOM NO: Z.504 AGE: 38 REPORT TYPE: [...] benign. Overall, satisfactory progress. Discussed with fred retail event and sales assistant and neurosurgeon. Medications are reviewed. At this [...] supplemented. Dictated By: Jani Mckoy MD WT: PN:GISSELLE/YONATHAN/JERSON Conf#: [id number]/DID#: [id number] Authenticated by Jani Mckoy MD On 06:04:48 AM PATIENT NAME: LEIGH FRYE at 0605 PATIENT NAME: LEIGH FRYE 2018-09-01 11:11:00-00:00 [facility] DT PROGRESS NOTE REPORT#:[id number] REPORT STATUS: Signed DATE:09/01/18 TIME: 1111 PATIENT: LEIGH FRYE UNIT #: [id number] ROOM/BED: [address] : 80 AGE: 38 SEX: F ATTEND: Johana Mckoy MD ADM AUTHOR: Jani Mckoy MD * ALL edits or amendments must be made on the el [employer]/computer document * Progress Note Progress Note Vital [...] 97 08/31 2217 127 121/91 98 96 06/12 2117 132 19 129/88 103 96 06/12 2017 129 21 119 06/12 1999 97.6 06/12 1999 126 17 94 06/12 1945 128 22 97 06/12 1917 88 115/55 79 95 06/12 1900 85 94 06/12 1817 83 119/58 84 94 06/12 1717 84 24 126/58 83 94 06/12 1700 85 26 96 06/12 1617 75 23 125/58 84 96 06/12 1545 77 39 06/12 1541 97.8 06/12 1519 76 34 123/64 88 97 06/12 1500 77 30 98 06/12 1430 80 28 98 06/12 1400 83 21 98 06/12 1330 75 [...] 2030 82 37 154/72 104 98 06/11 2015 82 17 177/79 114 96 06/11 1999 97.6 06/11 1999 81 18 170/79 113 98 06/11 1945 [...] 171/79 113 96 06/11 1615 Face mist 10.625254 tent 08/30 1615 77 16 169/77 111 95 06/11 1600 98.3 06/ 1600 74 19 152/80 110 06/11 1545 Face mist 10.447389 tent 11 1545 75 14 153/76 107 06/11 1533 75 18 151/70 100 06/11 1525 97.7 06/11 1500 79 16 161/68 100 Face mist 10.491246 tent 11 1450 76 16 168/80 100 Face mist 10.127210 tent 08/30 1440 74 16 156/76 100 Face mist 10.333796 tent 11 1430 98.0 75 16 149/73 100 Face mist 10.0 31331 tent Laboratory Tests: 09/01 09/01 09/01 08/31 [...] % (Auto) (14 - 44 %) 18.1 Ballard % (Auto) (4 - 13 %) 8.3 Eos % (Auto) (0 - 6 %) 0.5 Baso % (Auto) (0 - 2 %) 0.1 Neut # (Auto) (2.0 - 7.6 K/mm3) 8.40 H Lymph # (Auto) (1.0 - 3.8 K/mm3) 2.13 Ballard # (Auto) (0.1 - 0.8 K/mm3) 0.98 H Eos # (Auto) (0.0 - 0.2 K/mm3) 0.06 Baso # (Auto) (0.0 - 0.2 K/mm3) 0.01 Immature Gran % (0.0 - 2.0 %) 1.4 Nucleated RBC % (0 - 1.0 %) 0.0 Nucleated RBCs # (Man) (0.0 - 0.1 K/mm3) 0.00 Urines Ur Specific [place] (1.003 - 1.030) 1.015 1.005 08/31 1955 1735 1535 Chemistry Sodium (137 - 145 MMOL/L) 141 139 Urines Ur Specific [place] (1.003 - 1.030) 1.010 1.015 Home Medications: [...] Impression By: Farhan - Pranav Chaudhari M.D. CAT SCAN - [...] % (Auto) (14 - 44 %) 18.1 Ballard % (Auto) (4 - 13 %) 8.3 Eos % (Auto) (0 - 6 %) 0.5 Baso % (Auto) (0 - 2 %) 0.1 Neut # (Auto) (2.0 - 7.6 K/mm3) 8.40 H Lymph # (Auto) (1.0 - 3.8 K/mm3) 2.13 Ballard # (Auto) (0.1 - 0.8 K/mm3) 0.98 [...] 08/31 195 0 DC 08/31 IV 08/31 Trazodone HCl 50 MG BEDTIME PRN PRN 08/31 1635 AC 08/31 PO 07/12 1636 2011 Docusate Sodium 100 MG BID 08/30 2100 AC 09/01 PO 09/29 2101 0933 Mupirocin 1 APPLIC BID 08/30 2100 [...] Chloride 1,000 ML .Q20H 08/30 1525 AC IV 09/29 1446 0933 [place] [employer]/[place] 1 XIANG Q12HR 08/29 2100 CKD 09/01 Balsam/Trypsin TOPICAL 09/28 210 0817 Clotrimazole 1 XIANG BID 08/29 2100 CKD 09/01 TOPICAL 09/28 2101 0818 Pantoprazole 40 MG Q12HR 08/29 2100 AC 09/01 PO 09/28 2101 0817 Vitamin B Complex/ 1 TAB BID 08/28 2100 CKD Vitamin C PO 09/27 2101 0933 Zolpidem Tartrate 5 MG BEDTIME PRN PRN 08/28 19 40 AC 08/31 PO 09/27 1941 2111 Ferric Sodium 125 MG Q24H 08/27 09 DC 09/01 Gluconate Complex IV 09/01 0959 0821 Sodium Chloride 100 ML Tramadol HCl 100 MG TID PRN PRN 08/26 1120 AC 0 08/30 PO 09/25 1115 2059 Citalopram 40 MG DAILY 08/26 09 AC 09/01 Hydrobromide PO 09/25 0901 0933 Hydrochlorothiazide 25 MG DAILY 08/26 899 DC 08/31 PO 09/25 0901 1150 Lisinopril 20 MG DAILY 08/26 899 AC 09/01 PO 09/25 0901 0933 Metoprolol Tartrate 25 MG BID 08/26 899 AC PO 09/25 900 0817 Sucralfate 1 GM QID 08/26 899 AC 09/01 PO 09/25 09 0933 see dictation Electronically Signed by Jani Mckoy MD o n 09/01/18 at 1113 [facility] #:[id number] END OF REPORT 2018-09-01 09:10:00-00:[address] [facility] ([facility]) Critical Care Progress Note REPORT#:[id number] REPORT STATUS: Signed DATE:09/01/18 TIME: 909 PATIENT: LEIGH FRYE UNIT #: [id number] ROOM/BED: [address] : 80 AGE: 38 SEX: F ATTEND: Tho Mckoy MD ADM AUTHOR: DOMINGUEZ CORTES * ALL edits or amendments must be made on the [employer]/computer document * Subjective Comments: DDAVP x 1 overnight. So far this morning UOP 50 cc/hr. Less nasal drainage, lumbar drain on hold. Hemody namically stable. Continue q 8hr sodium, ua specific gravity, cortisol levels. discussed with neurosx mine inspector Review of Systems ROS Respiratory: Denies: SOB. Cardiovascular: Denies: chest pain. GI: Denies: abdominal pain, nausea, rectal pain. Additional notes: complaining of general body pain. constipation Objective General VS/I O Last Documented: Result Date Time Temp 36.8 09/01 08 Pulse Ox 96 09/01 716 B/P 123/59 09/01 716 B/P Mean 85 09/01 716 Pulse 78 09/01 716 Resp 18 09/01 716 O2 Delivery Face mist tent 08/30 1615 O2 Flow Rate 10.220080 08/30 1615 24 hour I O ending [...] IV Sodium Chloride 1,000 ML .Q20H IV [place] Balsam/Trypsin 1 XIANG Q12HR T OPICAL (CKD) [...] full range of motion, normal in spection 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: alert, oriented X 3, no motor deficit s, no sensory deficits Gwen Coma Score: Gwen Coma Score: Response Value Patient intubated? no [place] eyes: eyes open spontaneously 4 [place] speech: oriented 5 [place] motor: obeys commands 6 Total 15 Results Findings/Data: Laboratory Tests 09/01/18 0730: [Embedded Image Not Available] 09/01/18 040: [Embedded Image Not Available] 08/31/18 232: [Embedded Image Not Available] 08/31/182038: [Embedded Image Not Available] 08/31/18 1535: [Embedded Image Not Available] 08/31/18 1050: [Embedded Image Not Available] Laboratory Tests 09/010 2328 2038 1535 Chemistry Sodium (137 - [...] Calcium (8.4 - 10.2 MG/DL) 8.8 08/31 1049 Chemistry Sodium (137 - 145 MMOL/L) 140 [...] % (Auto) (14 - 44 %) 18.1 Ballard % (Auto) (4 - 13 %) 8.3 Eos % (Auto) (0 - 6 %) 0.5 Baso % (Auto) (0 - 2 %) 0.1 Neut # (Auto) (2.0 - 7.6 K/mm3) 8.40 H Lymph # (Auto) (1.0 - 3.8 K/mm3) 2.13 Ballard # (Auto) (0.1 - 0.8 K/mm3) 0.98 H Eos # (Auto) (0.0 - 0.2 K/mm3) 0.06 Baso # (Auto) (0.0 - 0.2 K/mm3) 0.01 Immature Gran % (0.0 - 2.0 %) 1.4 Nucleated RBC % (0 - 1.0 %) 0.0 Nucleated RBCs # (Man) (0.0 - 0.1 K/mm3) 0.00 Laboratory Tests 09/01 08/31 08/31 08/31 0835 2320 1955 1735 Urines Ur Specific [place] (1.003 - 1.030) 1.015 1.005 1.010 1.015 [...] Extubation 09/01 940 Complete at 1222 RPT #:[id number] END OF REPORT 2018-09-01 09:10:00-00:[address] [facility] ([facility]) Critical Care Progress Note REPORT#:[id number] REPORT STATUS: Signed DATE:09/01/18 TIME: 909 PATIENT: LEIGH FRYE UNIT #: [id number] ROOM/BED: [address] : 80 AGE: 38 SEX: F ATTEND: Johana Mckoy MD ADM AUTHOR: DOMINGUEZ CORTES * ALL edits or amendments must be made on the [employer]/computer document * Prakash Cortes 09/01/18 0910: Subjective Comments: DDAVP x 1 overnight. So far this morning UOP 50 cc/hr. Less nasal drainage, lumbar drain on hold. Hemody namically stable. Continue q 8hr sodium, ua specific gravity, cortisol levels. discussed with neurosx mine inspector Review of Systems ROS Respiratory: Denies: SOB. Cardiovascular: Denies: chest pain. GI: Denies: abdominal pain, nausea, rectal pain. Additional notes: complaining of general body pain. constipation Objective General VS/I O Last Documented: Result Date Time Temp 36.8 09/01 0800 Pulse Ox 96 09/01 0717 B/P 123/59 09/01 07 B/P Mean 85 09/01 07 Pulse 78 09/01 0717 Resp 18 09/01 0717 O2 Delivery Face mist tent 08/30 1615 O2 Flow Rate 10.828611 08/30 1615 24 hour I O ending at 0700: 09/01 0700 06/12 1900 Intake Total 3030.00 2490.00 Output Total [...] IV Sodium Chloride 1,000 ML .Q20H IV [place] Balsam/Trypsin 1 XIANG Q12HR T OPICAL (CKD) [...] full range of motion, normal in spection 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: alert, oriented X 3, no motor deficit s, no sensory deficits Gwen Coma Score: Gwen Coma Score: Response Value Patient intubated? no [place] eyes: eyes open spontaneously 4 [place] speech: oriented 5 Gwen motor: obeys commands [...] - 145 MMOL/L) 140 Laboratory Tests 09/01 040 Coagulation INR (0.8 - 1.1) 1.0 APTT [...] % (Auto) (14 - 44 %) 18.1 Ballard % (Auto) (4 - 13 %) 8.3 Eos % (Auto) (0 - 6 %) 0.5 Baso % (Auto) (0 - 2 %) 0.1 Neut # (Auto) (2.0 - 7.6 K/mm3) 8.40 H Lymph # (Auto) (1.0 - 3.8 K/mm3) 2.13 Ballard # (Auto) (0.1 - 0.8 K/mm3) 0.98 H Eos # (Auto) (0.0 - 0.2 K/mm3) 0.06 Baso # (Auto) (0.0 - 0.2 K/mm3) 0.01 Immature Gran % (0.0 - 2.0 %) 1.4 Nucleated RBC % (0 - 1.0 %) 0.0 Nucleated RBCs # (Man) (0.0 - 0.1 K/mm3) 0.00 Laboratory Tests 09/01 08/31 08/31 08/31 0835 2320 1955 1735 Urines Ur Specific [place] (1.003 - 1.030) 1.015 1.005 1.010 1.015 [...] SPECIFIC GRAVITY 09/02 2100 Active SODIUM 09/02 2099 Active CORTISOL 06/14 2100 Active UA SPECIFIC GRAVITY 09/02 1300 [...] plan as documented b y Dominguez Cortes TILE SPRAYER I obtained a detailed history and perfor med a detailed physical examination. I reviewed the medical records and the available data I agree with the documented examination findings, assessment and plan of sarah elder. at 1222 RPT #:[id number] END OF REPORT 2018-09-01 09:10:00-00:00 [facility] ([facility]) Critical Care Progress Note REPORT#:[id number] REPORT STATUS: Signed DATE:09/01/18 TIME: 909 PATIENT: LEIGH FRYE UNIT #: [id number] ROOM/BED: [address] : 80 AGE: 38 SEX: F ATTEND: Johana Mckoy MD ADM AUTHOR: DOMINGUEZ CORTES * ALL edits or amendments must be made on the [employer]/computer document * Prakash Cortes 09/01/18 0910: Subjective Comments: DDAVP x 1 overnight. So far this morning UOP 50 cc/hr. Less nasal drainage, lumbar drain on hold. Hemody namically stable. Continue q 8hr sodium, ua specific gravity, cortisol levels. discussed with neurosx mine inspector Review of Systems ROS Respiratory: Denies: SOB. Cardiovascular: Denies: chest pain. GI: Denies: abdominal pain, nausea, rectal pain. Additional notes: complaining of general body pain. constipation Objective General VS/I O Last Documented: Result Date Time Temp 36.8 09/01 08 Pulse Ox 96 09/01 716 B/P 123/59 09/01 716 B/P Mean 85 09/01 716 Pulse 78 09/01 716 Resp 18 09/01 716 O2 Delivery Face mist tent 08/30 1615 O2 Flow Rate 10.458032 08/30 1615 24 hour I O ending [...] IV Sodium Chloride 1,000 ML .Q20H IV [place] Balsam/Trypsin 1 XIANG Q12HR T OPICAL (CKD) [...] full range of motion, normal in spection 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: alert, oriented X 3, no motor deficit s, no sensory deficits Gwen Coma Score: Gwen Coma Score: Response Value Patient intubated? no Gwen eyes: eyes open spontaneously 4 Gwen speech: oriented 5 Gwen motor: obeys commands 6 Total 15 Results Findings/Data: Laboratory Tests 09/01/18 0730: [Embedded Image Not Available] 09/01/18 0400: [Embedded Image Not Available] 08/31/18 2329: [Embedded Image Not Available] 08/31/18 203: [Embedded Image Not Available] 08/31/18 1535: [Embedded Image Not Available] 08/31/18 1050: [Embedded Image Not Available] Laboratory Tests 09/01 09/01 08/31 08/31 08/31 0730 0 2328 2038 1535 Chemistry Sodium (137 - [...] - 11.6 SECONDS) 10. 1 Laboratory Tests 06/13 0400 Hematology WBC (3.8 - 9.8 K/MM3) [...] % (Auto) (14 - 44 %) 18.1 Ballard % (Auto) (4 - 13 %) 8.3 Eos % (Auto) (0 - 6 %) 0.5 Baso % (Auto) (0 - 2 %) 0.1 Neut # (Auto) (2.0 - 7.6 K/mm3) 8.40 H Lymph # (Auto) (1.0 - 3.8 K/mm3) 2.13 Ballard # (Auto) (0.1 - 0.8 K/mm3) 0.98 H Eos # (Auto) (0.0 - 0.2 K/mm3) 0.06 Baso # (Auto) (0.0 - 0.2 K/mm3) 0.01 Immature Gran % (0.0 - 2.0 %) 1.4 Nucleated RBC % (0 - 1.0 %) 0.0 Nucleated RBCs # (Man) (0.0 - 0.1 K/mm3) 0.00 Laboratory Tests 09/01 08/31 08/31 08/31 0835 2320 1955 1735 Urines Ur Specific [place] (1.003 - 1.030) 1.015 1.005 1.010 1.015 [...] Protocol 09/01 940 Complete RT: Extubation 09/01 0941 Complete Melissa Miller 09/01/18 1715: Attestations Midlevel/Physician Attestation Midlevel attestation: Services and addendum: Agree with the findings and plan as documented Dominguez Morales NP I obtained a detailed history and perfor med a detailed physical examination. I reviewed the medical records and the available data I agree with the documented examination findings, assessment and plan of sarah jerrod. 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 Preoperative testing did not give a single elevated diagnostic hormone and ____ proceeded wi th resection ____ done yesterday. ____ she had [...] The patient's laboratory data, vital signs in th e printed portion of general progress note have [...] ____. Dictated By: Jani Mckoy MD WT: PN:Arnaldo.AMANDA/YONATHAN/JERSON PATIENT NAME: LEIGH FRYE Conf#: [id number]/DID#: [id number] Authenticated by Jani Mckoy MD On 06:03:48 AM at 0604 PATIENT NAME: LEIGH FRYE 2018-08-31 15:28:00-00:[address] [facility] ([facility]) Neurosurgical Progress Note REPORT#:[id number] REPORT STATUS: Signed DATE:08/31/18 TIME: 1528 PATIENT: LEIGH FRYE UNIT #: [id number] ROOM/BED: [address] : 80 AGE: 38 SEX: F ATTEND: Johana Mckoy MD ADM AUTHOR: Tanya Rodriguez, TILE SPRAYER * ALL edits or amendments must be made on the [employer]/computer document * Subjective Comments: Nasal dressing requiring frequent changing throu ghout the day, with the fluid appearing to be CSF. Will plan to place lumbar d rain tomorrow. Objective General VS/I O: Vital Signs Date Temp Pulse Resp B/P B/P Mean Pulse Ox FiO2 08/30-08/31 97.6-98.3 69-90 14-37 102-178/56-80 78-115 92-100 24 hour I O ending at 0700: 08/31 0700 06 1900 Intake Total 3155.00 3395.00 Output Total [...] PRN PRN IV Sodium Chloride 1,000 ML .[id number] IV [place] Balsam/Trypsin 1 XIANG Q12HR T OPICAL (CKD) [...] non-tender, normal bowel sounds, soft, no distention 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: alert, oriented X 3, CN II-XII intact, [...] % (Auto) (14 - 44 %) 15.2 [place] % (Auto) (4 - 13 %) 4.9 Eos % (Auto) (0 - 6 %) 0.8 Baso % (Auto) (0 - 2 %) 0.2 Neut # (Auto) (2.0 - 7.6 K/mm3) 8.27 H Lymph # (Auto) (1.0 - 3.8 K/mm3) 1.61 [place] # (Auto) (0.1 - 0.8 K/mm3) 0.52 Eos # (Auto) (0.0 - 0.2 K/mm3) 0.08 Baso # (Auto) (0.0 - 0.2 K/mm3) 0.02 Immature Gran % (0.0 - 2.0 %) 0.7 Nucleated RBC % (0 - 1.0 %) 0.0 Nucleated RBCs # (Man) (0.0 - 0.1 K/mm3) 0.00 Laboratory Tests 08/31 08/31 08/30 0755 0030 1644 Urines Ur Specific [place] (1.003 - 1.030) 1.010 1.005 1.025 Ur [...] CSF leak. Tomorrow at 0900 NPO at [place] Electronically Signed by Tanya Rodriguez NP on 08/20 06/07 at 1557 RPT #:[id number] END OF REPORT 2018-08-31 15:28:00-00:00 [facility] ([facility] Neurosurgical Progress Note REPORT#:[id number] REPORT STATUS: Signed DATE:08/31/18 TIME: 1528 PATIENT: LEIGH FRYE UNIT #: [id number] ROOM/BED: [address] : [birth year] AGE: 38 SEX: F ATTEND: Johana Mckoy MD ADM AUTHOR: Tanya Rodriguez NP * ALL edits or amendments must be made on the [employer]/computer document * Tanya Rodriguez NP 08/31/18 1528: [...] PRN PRN IV Sodium Chloride 1,000 ML .[id number] IV [place] Oil/[place] Balsam/Trypsin 1 XIANG Q12HR T OPICAL (CKD) [...] non-tender, normal bowel sounds, soft, no distention 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: alert, oriented X 3, CN II-XII intact, [...] % (Auto) (14 - 44 %) 15.2 Ballard % (Auto) (4 - 13 %) 4.9 Eos % (Auto) (0 - 6 %) 0.8 Baso % (Auto) (0 - 2 %) 0.2 Neut # (Auto) (2.0 - 7.6 K/mm3) 8.27 H Lymph # (Auto) (1.0 - 3.8 K/mm3) 1.61 Ballard # (Auto) (0.1 - 0.8 K/mm3) 0.52 Eos # (Auto) (0.0 - 0.2 K/mm3) 0.08 Baso # (Auto) (0.0 - 0.2 K/mm3) 0.02 Immature Gran % (0.0 - 2.0 %) 0.7 Nucleated RBC % (0 - 1.0 %) 0.0 Nucleated RBCs # (Man) (0.0 - 0.1 K/mm3) 0.00 Laboratory Tests 08/31 08/31 08/30 0755 0030 1644 Urines Ur Specific [place] (1.003 - 1.030) 1.010 1.005 1.025 Ur [...] NP on 08/20 06/07 at 1557 RPT #:[id number] END OF REPORT 2018-08-31 15:28:00-00:00 [facility] ([facility] Neurosurgical Progress Note REPORT#:[id number] REPORT STATUS: Signed DATE:08/31/18 TIME: 152 PATIENT: LEIGH FRYE UNIT #: [id number] [address] : [address] AGE: 38 SEX: F ATTEND: Johana Mckoy MD ADM AUTHOR: Tanya Rodriguez NP * ALL edits or amendments must be made on the el [employer]/computer document * Tanya Rodriguez NP 08/31/18 1528: [...] PRN PRN IV Sodium Chloride 1,000 ML .[id number] IV [place] Oil/[place] Balsam/Trypsin 1 XIANG Q12HR T OPICAL (CKD) [...] non-tender, normal bowel sounds, soft, no distention 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: alert, oriented X 3, CN II-XII intact, [...] % (Auto) (14 - 44 %) 15.2 Ballard % (Auto) (4 - 13 %) 4.9 Eos % (Auto) (0 - 6 %) 0.8 Baso % (Auto) (0 - 2 %) 0.2 Neut # (Auto) (2.0 - 7.6 K/mm3) 8.27 H Lymph # (Auto) (1.0 - 3.8 K/mm3) 1.61 Ballard # (Auto) (0.1 - 0.8 K/mm3) 0.52 Eos # (Auto) (0.0 - 0.2 K/mm3) 0.08 Baso # (Auto) (0.0 - 0.2 K/mm3) 0.02 Immature Gran % (0.0 - 2.0 %) 0.7 Nucleated RBC % (0 - 1.0 %) 0.0 Nucleated RBCs # (Man) (0.0 - 0.1 K/mm3) 0.00 Laboratory Tests 08/31 08/31 08/30 0755 0030 1644 Urines Ur Specific [place] (1.003 - 1.030) 1.010 1.005 1.025 Ur [...] CSF leak. Tomorrow at 0900 NPO at [place] Ozzy Viera 09/02/18 1348: Diagnosis, Assessment Plan Additional comments: Agree with above Electronically Signed by Tanya Rodriguez NP on 08/20 06/07 at 1557 Electronically Signed by Ozzy Viera MD on 08/20 07/08 at 1341 RPT #:[id number] END OF REPORT 2018-08-31 14:18:00-00:00 [facility] ([facility]) General Progress Note REPORT#:[id number] REPORT STATUS: Signed DATE:08/31/18 TIME: 1418 PATIENT: LEIGH FRYE UNIT #: [id number] [address] AGE: 38 SEX: F ATTEND: Johana Mckoy MD ADM AUTHOR: Jani Mckoy MD * ALL edits or amendments must be made on the el [employer]/computer document * Subjective Comments: Vital Signs Date Time Temp Pulse Resp B/P B/P Pulse O2 O2 Fl ow FiO2 Mean Ox Delivery Rate 08/31 1300 79 19 141/65 94 97 06/ 1200 98.3 06 1200 78 21 138/62 88 97 06/ 1143 84 20 161/74 106 06/12 1000 71 21 134/60 86 97 06/ 0900 70 20 138/57 78 96 06/12 0800 98.3 06/ 0800 69 23 116/56 81 97 06/12 [...] 06/11 1700 82 17 174/77 111 95 08/30 1645 80 22 156/70 100 96 08/30 1630 79 14 171/79 113 96 08/30 1615 Face mist 10.095974 tent 08/30 1615 77 16 169/77 111 95 11 1600 98.3 08/30 1600 74 19 152/80 110 /11 1545 Face mist 10.389524 tent 08/30 1545 75 14 153/76 107 08/30 1533 75 18 151/70 100 /11 1525 97.7 08/30 1500 79 16 161/68 100 Face mist 10.434667 tent 08/30 1450 76 16 168/80 100 Face mist 10.439783 tent 08/30 1440 74 16 156/76 100 Face mist 10.133519 tent 08/30 1430 98.0 75 16 149/73 100 Face mist 10.00 0000 tent 08/30 1057 98.7 63 16 128/71 99 Room air 0.57681 0 08/30 0726 97.9 63 14 110/73 [...] 22.7 ug/dL) 78.90 H Urines Ur Specific [place] (1.003 - 1.030) 1.010 1.005 Ur Random [...] % (Auto) (14 - 44 %) 15.2 Ballard % (Auto) (4 - 13 %) 4.9 Eos % (Auto) (0 - 6 %) 0.8 Baso % (Auto) (0 - 2 %) 0.2 Neut # (Auto) (2.0 - 7.6 K/mm3) 8.27 H Lymph # (Auto) (1.0 - 3.8 K/mm3) 1.61 Ballard # (Auto) (0.1 - 0.8 K/mm3) 0.52 Eos # (Auto) (0.0 - 0.2 K/mm3) 0.08 Baso # (Auto) (0.0 - 0.2 K/mm3) 0.02 Immature Gran % (0.0 - 2.0 %) 0.7 Nucleated RBC % (0 - 1.0 %) 0.0 Nucleated RBCs # (Man) (0.0 - 0.1 K/mm3) 0.00 Urines Ur Specific [place] (1.003 - 1.030) 1.025 Recent Impressions: CAT [...] % (Auto) (14 - 44 %) 15.2 Ballard % (Auto) (4 - 13 %) 4.9 Eos % (Auto) (0 - 6 %) 0.8 Baso % (Auto) (0 - 2 %) 0.2 Neut # (Auto) (2.0 - 7.6 K/mm3) 8.27 H Lymph # (Auto) (1.0 - 3.8 K/mm3) 1.61 Ballard # (Auto) (0.1 - 0.8 K/mm3) 0.52 Eos # (Auto) (0.0 - 0.2 K/mm3) 0.08 Baso # (Auto) (0.0 - 0.2 K/mm3) 0.02 Immature Gran % (0.0 - 2.0 %) 0.7 Nucleated RBC % (0 - 1.0 %) 0.0 Nucleated RBCs # (Man) (0.0 - 0.1 K/mm3) 0.00 08/31 0700 06 2300 08/30 1500 Intake Total 2960.00 2590.00 1000.00 Output [...] MG Q4H PRN PRN 08/30 1525 AC 08/31 IV 09/29 1522 1144 Ondansetron HCl 4 MG Q4H PRN PRN 08/30 1525 AC 08/30 IV 09/29 1526 1529 Sodium Chloride 1,000 ML .[id number] 08/30 1525 AC 08/31 IV 09/29 1446 0227 Morphine Sulfate 0 .STK-MED ONE 08/30 1524 DC 0 08/30 IV 1530 Morphine Sulfate 2 MG Q4H PRN PRN 08/30 1505 DC IV 09/29 1504 Hydromorphone HCl 0 .STK-MED ONE 08/30 1435 DC .ROUTE Hydromorphone HCl 0 .STK-MED ONE 08/30 1427 DC .ROUTE Cefazolin Sodium 2,000 MG ONCALL 08/30 1100 DC IV 09/06 1101 [place] 1 XIANG Q12HR 08/29 2100 CKD 08/31 Balsam/Trypsin TOPICAL 09/28 2101 0805 Clotrimazole 1 XIANG BID 08/29 2100 CKD 08/31 TOPICAL 09/28 2101 0806 Pantoprazole 40 MG Q12HR 08/29 2100 AC 08/31 PO 09/28 2101 0805 Vitamin B Complex/ 1 TAB BID 08/28 2100 CKD Vitamin C PO 09/27 2101 0804 Zolpidem Tartrate 5 MG BEDTIME PRN PRN 08/28 19 40 AC 08/30 PO 09/27 1941 2100 Ferric Sodium 125 MG Q24H 08/27 899 AC 08/31 Gluconate Complex IV 09/01 0959 0810 Sodium Chloride 100 ML Atorvastatin Calcium 40 MG BEDTIME 08/26 2100 D C 08/29 PO 09/25 2101 2104 Tramadol HCl 100 MG TID PRN PRN 08/26 1120 AC 0 08/30 PO 09/25 1115 2059 Citalopram 40 MG DAILY 08/26 899 AC 08/31 Hydrobromide PO 09/25 0901 0804 Hydrochlorothiazide 25 MG DAILY 08/26 899 AC 0 08/31 PO 09/25 0901 1150 Lisinopril 20 MG DAILY 08/26 899 AC 08/31 PO 09/25 0901 1150 Metoprolol Tartrate 25 MG BID 08/26 899 AC PO 09/25 0901 0804 Sucralfate 1 GM QID 08/26 899 AC 08/31 PO 09/25 0901 1207 Morphine Sulfate 1 MG Q4H PRN PRN 08/26 0040 DC 08/30 IV 09/25 0041 0134 SEE DICTATION Electronically Signed by Jani Mckoy MD o n 08/31/18 at 1420 [facility] #:[id number] END OF REPORT 2018-08-31 10:34:00-00:00 [facility] ([facility]) Podiatry Progress Note REPORT#:[id number] REPORT STATUS: Signed DATE:08/31/18 TIME: 1034 PATIENT: LEIGH FRYE UNIT #: [id number] RO[address]BED: [address] : 80 AGE: 38 SEX: F ATTEND: Johana Mckoy MD ADM AUTHOR: Malu Stiles DPM R1 * ALL edits or amendments must be made on the [employer]/computer document * Subjective HPI: Pt states her [...] PRN PRN IV Sodium Chloride 1,000 ML .[id number] IV Morphine Sulfate 0 .STK-MED ONE IV (DC) Morphine Sulfate 2 MG Q4H PRN PRN IV (DC) Hydromorphone HCl 0 .STK-MED ONE .ROUTE (DC) Hydromorphone HCl 0 .STK-MED ONE .ROUTE (DC) Fentanyl Citrate 0 .STK-MED ONE .ROUTE (DC) Cefazolin Sodium 0 .STK-MED ONE .ROUTE (DC) Lidocaine HCl 0 .STK-MED ONE .ROUTE (DC) Rocuronium [place] 0 .STK-MED ONE .ROUTE (DC) Succinylcholine Chloride 0 .STK-MED ONE .ROUTE (DC) Fentanyl Citrate 0 .STK-MED ONE .ROUTE (DC) Midazolam HCl 0 .STK-MED ONE .ROUTE (DC) Propofol 0 .STK-MED ONE .ROUTE (DC) Cefazolin Sodium 2,000 MG ONCALL IV (DC) [place] Balsam/Trypsin 1 XIANG Q12HR T OPICAL (CKD) [...] 22.7 ug/dL) 78.90 H Urines Ur Specific [place] (1.003 - 1.030) 1.010 1.005 1.025 Ur [...] % (Auto) (14 - 44 %) 15.2 Ballard % (Auto) (4 - 13 %) 4.9 Eos % (Auto) (0 - 6 %) 0.8 Baso % (Auto) (0 - 2 %) 0.2 Neut # (Auto) (2.0 - 7.6 K/mm3) 8.27 H Lymph # (Auto) (1.0 - 3.8 K/mm3) 1.61 Ballard # (Auto) (0.1 - 0.8 K/mm3) 0.52 [...] other intracranial abnormality. Impression By: [email or web address] - Krei Avila MD Diagnosis, Assessment Plan Free Text [...] DPM R1 on 0 09/01/18 at 1043 [facility] #:[id number] END OF REPORT 2018-08-31 10:34:00-00:00 [facility] ([facility]) Podiatry Progress Note REPORT#:[id number] REPORT STATUS: Signed DATE:08/31/18 TIME: 1034 PATIENT: LEIGH FRYE UNIT #: [id number] [address]ED: [address] : 80 AGE: 38 SEX: F ATTEND: Johana Mckoy MD ADM AUTHOR: Malu Stiles DPM R1 * ALL edits or amendments must be made on the [employer]/computer document * Subjective HPI: Pt states her [...] PRN PRN IV Sodium Chloride 1,000 ML .[id number] IV Morphine Sulfate 0 .STK-MED ONE IV (DC) Morphine Sulfate 2 MG Q4H PRN PRN IV (DC) Hydromorphone HCl 0 .STK-MED ONE .ROUTE (DC) Hydromorphone HCl 0 .STK-MED ONE .ROUTE (DC) Fentanyl Citrate 0 .STK-MED ONE .ROUTE (DC) Cefazolin Sodium 0 .STK-MED ONE .ROUTE (DC) Lidocaine HCl 0 .STK-MED ONE .ROUTE (DC) Rocuronium [place] 0 .STK-MED ONE .ROUTE (DC) Succinylcholine Chloride 0 .STK-MED ONE .ROUTE ( DC) Fentanyl Citrate 0 .STK-MED ONE .ROUTE (DC) Midazolam HCl 0 .STK-MED ONE .ROUTE (DC) Propofol 0 .STK-MED ONE .ROUTE (DC) Cefazolin Sodium 2,000 MG ONCALL IV (DC) [place] Balsam/Trypsin 1 XIANG Q12HR T OPICAL (CKD) [...] 22.7 ug/dL) 78.90 H Urines Ur Specific [place] (1.003 - 1.030) 1.010 1.005 1.025 Ur [...] % (Auto) (14 - 44 %) 15.2 Ballard % (Auto) (4 - 13 %) 4.9 Eos % (Auto) (0 - 6 %) 0.8 Baso % (Auto) (0 - 2 %) 0.2 Neut # (Auto) (2.0 - 7.6 K/mm3) 8.27 H Lymph # (Auto) (1.0 - 3.8 K/mm3) 1.61 Ballard # (Auto) (0.1 - 0.8 K/mm3) 0.52 [...] by Matilde Burnham DPM on at 1434 [facility] #:[id number] END OF REPORT 2018-08-31 07:34:00-00:[address] [facility] ([facility]) Neurosurgical Progress Note REPORT#:[id number] REPORT STATUS: Signed DATE:08/31/18 TIME: 733 PATIENT: LEIGH FRYE UNIT #: [id number] RO[address]/BED: [address] : 80 AGE: 38 SEX: F ATTEND: Johana Mckoy MD ADM AUTHOR: Ozzy Viera MD * ALL edits or amendments must be made on the [employer] document * Subjective Chief Complaint: She states [...] Physical Exam General appearance: alert, awake, oriented 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: alert, oriented X 3, CN II-XII intact, [...] % (Auto) (14 - 44 %) 15.2 Ballard % (Auto) (4 - 13 %) 4.9 Eos % (Auto) (0 - 6 %) 0.8 Baso % (Auto) (0 - 2 %) 0.2 Neut # (Auto) (2.0 - 7.6 K/mm3) 8.27 H Lymph # (Auto) (1.0 - 3.8 K/mm3) 1.61 Ballard # (Auto) (0.1 - 0.8 K/mm3) 0.52 Eos # (Auto) (0.0 - 0.2 K/mm3) 0.08 Baso # (Auto) (0.0 - 0.2 K/mm3) 0.02 Immature Gran % (0.0 - 2.0 %) 0.7 Nucleated RBC % (0 - 1.0 %) 0.0 Nucleated RBCs # (Man) (0.0 - 0.1 K/mm3) 0.00 Laboratory Tests 08/31 08/30 0030 1644 Urines Ur Specific [place] (1.003 - 1.030) 1.005 1.025 Diagnosis, Assessment [...] MD on 08/20 05/10 at 0737 RPT #:[id number] END OF REPORT 2018-08-31 01:45:00-00:[address] [facility] ([facility]) Critical Care Progress Note REPORT#:[id number] REPORT STATUS: Signed DATE:08/31/18 TIME: 0145 PATIENT: LEIGH FRYE UNIT #: [id number] RO[address]/BED: [address] : 80 AGE: 38 SEX: F ATTEND: Johana Mckoy MD ADM AUTHOR: Deedee Burgos MD * ALL edits or amendments must be made on the [employer]/computer document * Subjective Comments: Patient seen and [...] mist tent 08/30 1615 O2 Flow Rate 10.539190 08/30 1615 24 hour I O ending [...] PRN PRN IV Sodium Chloride 1,000 ML .[id number] IV Morphine Sulfate 0 .STK-MED ONE IV (DC) Morphine Sulfate 2 MG Q4H PRN PRN IV (DC) Hydromorphone HCl 0 .STK-MED ONE .ROUTE (DC) Hydromorphone HCl 0 .STK-MED ONE .ROUTE (DC) Fentanyl Citrate 0 .STK-MED ONE .ROUTE (DC) Cefazolin Sodium 0 .STK-MED ONE .ROUTE (DC) Lidocaine HCl 0 .STK-MED ONE .ROUTE (DC) Rocuronium [place] 0 .STK-MED ONE .ROUTE (DC) Succinylcholine Chloride [...] (DC) Epinephrine 0 .STK-MED ONE .ROUTE (DC) [place] Balsam/Trypsin 1 XIANG Q12HR T OPICAL (CKD) [...] full range of motion, normal in spection 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: alert, oriented X 3, no motor deficit s, no sensory deficits Diagnosis, Assessment Plan Problem List/A P: 1. Status post transsphenoidal pituitary resect ion resection of pituitary tumor strict i/o with rubin catheter cortisol, serum na, urine specific gravity q8h See discussion above about dosing of DD MOTORS AND GENERATORS INSPECTOR and concern for diabetes insipidus developing ddavp prn neuro checks hourly Critical Care Time excluding separately reportab le procedures: 31 mins Critical Care time includes: Patient management by me, Time spent at bedside, Reviewing test results, Reviewing imaging, Discu ssing patient care, Documentation in record at 0148 RPT #:[id number] END OF REPORT 2018-08-30 15:44:00-00:[address] [facility] ([facility]) Critical Care Consult Note REPORT#:[id number] REPORT STATUS: Signed DATE:08/30/18 TIME: 1544 PATIENT: LEIGH FRYE UNIT #: [id number] ROOM/BED: [address] : 80 AGE: 38 SEX: F ATTEND: Johana Mckoy MD ADM AUTHOR: RO CEDILLO SEMICONDUCTOR WAFERS ETCHER STRIPPER-BC * ALL edits or amendments must be made on the [employer]/computer document * History of Present Illness HPI [...] ivp and is requesting more stating "at [facility] they were giving me 6mg of morphine [...] th at he has medical power of apartment assistant manager, she is an ex smoker, she has [...] 50 MG TAB TID PRN PRN PAIN 2351 012 RIVAROXABAN (XARELTO) 20 MG PO DAILY 08/26/18 0 08/26/18 Strength: 20 MG TAB 105 012 Current Hospital Medications: Anti-Infective Agents Sig/Roshan Start [...] Dose Route Stop Time Status Admin Rocuronium [place] 0 .STK-MED ONE 08/30 1308 DC (ZEMURON) [...] Atorvastatin Calcium 40 MG BEDTIME 08/26 2100 DC 08/29 (LIPITOR) PO 09/25 2101 2104 Lisinopril [...] Q4H PRN PRN 08/30 1525 A C (morphine SULFATE (C- IV 09/29 1522 II)) [...] Time Status Admin Sodium Chloride 1,000 ML .[id number] 08/30 1525 AC (SODIUM CHLORIDE IV 09/29 1446 0.9%) Hydrochlorothiazide 25 MG DAILY 08/26 0900 AC 0 08/29 (HYDRODIURIL) PO 09/25 09 1026 Eye, Ear, Nose And Throat (Een [...] 08/29 2099 AC 08/29 (PROTONIX) PO 09/28 2100 210 Sucralfate 1 GM QID 08/26 09 AC 08/29 (CARAFATE) PO 09/25 09 2104 Local Anesthetics (Parenteral) Sig/Roshan Start time Last Medication Dose Route Stop Time Status Admin Bupivacaine HCl 0 .STK-MED ONE 08/30 0953 DC (SENSORCAINE 0.25%) .ROUTE Skin And Mucous Membrane Agent Sig/Roshan Start time Last Medication Dose Route Stop Time Status Admin Cocaine HCl 0 .STK-MED ONE 08/30 0952 DC (COCAINE HCL (C-II)) .ROUTE [place] Oil/[place] 1 XIANG Q12HR 08/29 2099 CKD 08/29 Balsam/Trypsin TOPICAL 09/28 (Venelex Ointment Packet) Clotrimazole 1 XIANG BID 08/29 2099 CKD 08/29 (LOTRIMIN) TOPICAL 09/28 Vitamins Sig/Roshan Start time Last Medication Dose Route Stop Time Status Admin Vitamin B Complex/ 1 TAB BID 08/28 2099 CKD Vitamin C PO 09/27 2101 2104 (NEPHRO-JOSÉ) Hydroxocobalamin 1,000 MCG DAILY 08/28 1000 [...] mist tent 08/30 1545 O2 Flow Rate 10.751886 08/30 1545 Temp 36.5 08/30 1525 Pulse [...] PRN PRN IV Sodium Chloride 1,000 ML .[id number] IV Morphine Sulfate 0 .STK-MED ONE IV (DC) Morphine Sulfate 2 MG Q4H PRN PRN IV (DC) Hydromorphone HCl 0 .STK-MED ONE .ROUTE (DC) Hydromorphone HCl 0 .STK-MED ONE .ROUTE (DC) Fentanyl Citrate 0 .STK-MED ONE .ROUTE (DC) Cefazolin Sodium 0 .STK-MED ONE .ROUTE (DC) Lidocaine HCl 0 .STK-MED ONE .ROUTE (DC) Rocuronium [place] 0 .STK-MED ONE .ROUTE (DC) Succinylcholine Chloride [...] (DC) Epinephrine 0 .STK-MED ONE .ROUTE (DC) [place] Balsam/Trypsin 1 XIANG Q12HR T OPICAL (CKD) [...] full range of motion, normal in spection 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: alert, oriented X 3, no motor deficit [...] % (Auto) (14 - 44 %) 15.2 Ballard % (Auto) (4 - 13 %) 4.9 Eos % (Auto) (0 - 6 %) 0.8 Baso % (Auto) (0 - 2 %) 0.2 Neut # (Auto) (2.0 - 7.6 K/mm3) 8.27 H Lymph # (Auto) (1.0 - 3.8 K/mm3) 1.61 Ballard # (Auto) (0.1 - 0.8 K/mm3) 0.52 Eos # (Auto) (0.0 - 0.2 K/mm3) 0.08 Baso # (Auto) (0.0 - 0.2 K/mm3) 0.02 Immature Gran % (0.0 - 2.0 %) 0.7 Nucleated RBC % (0 - 1.0 %) 0.0 Nucleated RBCs # (Man) (0.0 - 0.1 K/mm3) 0.00 Radiology data: Recent Impressions: CAT SCAN - CT HD/BR W W/O CONT 08/30 1719 Report Impression - Status: SIGNED Entered: 08/29/20181901 IMPRESSION: 1. Pituitary macroadenoma. Further evaluation wi [...] insipidus ddavp prn neuro checks Consultants: critical care/retail event and sales assistant, kin avilez Critical care time: Minutes: 40 at 1623 RPT #:[id number] END OF REPORT 2018-08-30 15:44:00-00:[address] ([facility]) Critical Care Consult Note REPORT#:[id number] REPORT STATUS: Signed DATE:08/30/18 TIME: 1544 PATIENT: LEIGH FRYE UNIT #: [id number] RO[address]/BED: [address] : 80 AGE: 38 SEX: F ATTEND: Johana Mckoy MD ADM AUTHOR: RO CEDILLO * ALL edits or amendments must be made on the el [employer]/computer document * Ro Cedillo 08/30/18 1544: History [...] ivp and is requesting more stating "at [facility] they were giving me 6mg of morphine [...] th at he has medical power of apartment assistant manager, she is an ex smoker, she has [...] 50 MG TAB TID PRN PRN PAIN 235 0126 RIVAROXABAN (XARELTO) 20 MG PO DAILY 08/26/18 0 08/26/18 Strength: 20 MG TAB 105 012 Current Hospital Medications: Anti-Infective Agents Sig/Roshan Start [...] Dose Route Stop Time Status Admin Rocuronium [place] 0 .STK-MED ONE 08/30 1308 DC (ZEMURON) [...] 2 MG Q4H PRN PRN 08/30 1505 D C (morphine SULFATE (C- IV 09/29 1504 II)) [...] Time Status Admin Sodium Chloride 1,000 ML .[id number] 08/30 1525 AC (SODIUM CHLORIDE IV 09/29 [...] 210 210 Sucralfate 1 GM QID 08/26 09 AC 08/29 (CARAFATE) PO 09/25 0901 210 Local Anesthetics (Parenteral) Sig/Roshan Start time Last Medication Dose Route Stop Time Status Admin Bupivacaine HCl 0 .STK-MED ONE 08/30 0953 DC (SENSORCAINE 0.25%) .ROUTE Skin And Mucous Membrane Agent Sig/Roshan Start time Last Medication Dose Route Stop Time Status Admin Cocaine HCl 0 .STK-MED ONE 08/30 0952 DC (COCAINE HCL (C-II)) .ROUTE [place] 1 XIANG Q12HR 08/29 2099 CKD 08/29 Balsam/Trypsin TOPICAL 09/28 (Venelex Ointment Packet) Clotrimazole 1 XIANG BID 08/29 2099 CKD 08/29 (LOTRIMIN) TOPICAL 09/28 2100 210 Vitamins Sig/Roshan Start time Last Medication Dose Route Stop Time Status Admin Vitamin B Complex/ 1 TAB BID 08/28 2099 CKD Vitamin C PO 09/27 2101 2104 (NEPHRO-JOSÉ) Hydroxocobalamin 1,000 MCG DAILY 08/28 1000 [...] mist tent 08/30 1545 O2 Flow Rate 10.534588 08/30 1545 Temp 36.5 08/30 1525 Pulse [...] PRN PRN IV Sodium Chloride 1,000 ML .[id number] IV Morphine Sulfate 0 .STK-MED ONE IV (DC) Morphine Sulfate 2 MG Q4H PRN PRN IV (DC) Hydromorphone HCl 0 .STK-MED ONE .ROUTE (DC) Hydromorphone HCl 0 .STK-MED ONE .ROUTE (DC) Fentanyl Citrate 0 .STK-MED ONE .ROUTE (DC) Cefazolin Sodium 0 .STK-MED ONE .ROUTE (DC) Lidocaine HCl 0 .STK-MED ONE .ROUTE (DC) Rocuronium [place] 0 .STK-MED ONE .ROUTE (DC) Succinylcholine Chloride [...] (DC) Epinephrine 0 .STK-MED ONE .ROUTE (DC) [place] Balsam/Trypsin 1 XIANG Q12HR T OPICAL (CKD) [...] full range of motion, normal in spection 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: alert, oriented X 3, no motor deficit [...] % (Auto) (14 - 44 %) 15.2 Ballard % (Auto) (4 - 13 %) 4.9 Eos % (Auto) (0 - 6 %) 0.8 Baso % (Auto) (0 - 2 %) 0.2 Neut # (Auto) (2.0 - 7.6 K/mm3) 8.27 H Lymph # (Auto) (1.0 - 3.8 K/mm3) 1.61 Ballard # (Auto) (0.1 - 0.8 K/mm3) 0.52 Eos # (Auto) (0.0 - 0.2 K/mm3) 0.08 Baso # (Auto) (0.0 - 0.2 K/mm3) 0.02 Immature Gran % (0.0 - 2.0 %) 0.7 Nucleated RBC % (0 - 1.0 %) 0.0 Nucleated RBCs # (Man) (0.0 - 0.1 K/mm3) 0.00 Radiology data: Recent Impressions: CAT SCAN - CT HD/BR W W/O CONT 08/30 1719 Report Impression - Status: SIGNED Entered: 08/29/20181901 IMPRESSION: 1. Pituitary macroadenoma. Further evaluation wi [...] insipidus ddavp prn neuro checks Consultants: critical care/retail event and sales assistantkin Critical care time: Minutes: 40 Melissa Miller [...] output to monitor for DI. at 1623 RPT #:[id number] END OF REPORT 2018-08-30 15:44:00-00:[address] ([facility]) Critical Care Consult Note REPORT#:[id number] REPORT STATUS: Signed DATE:08/30/18 TIME: 1543 PATIENT: LEIGH FRYE UNIT #: [id number] ROOM/BED: [address] : 80 AGE: 38 SEX: F ATTEND: Tho Mckoy MD ADM AUTHOR: RO CEDILLO CNP-BC * ALL edits or amendments must be made on the [employer]/computer document * Ro Cedillo 08/30/18 1544: History [...] ivp and is requesting more stating "at [facility] they were giving me 6mg of morphine [...] th at he has medical power of apartment assistant manager, she is an ex smoker, she has [...] 10 MG TAB Q6H PRN PRN PAIN 1 0126 METOPROLOL TARTRATE 25 MG PO BID 08/25/1808/26 (LOPRESSOR) 2350 0126 Strength: [address] 40 MG PO DAILY 08/25/18 9 (PROTONIX) 235 0126 Strength: 40 MG TAB. SUCRALFATE (CARAFATE) 1 GM PO QID 08/25/1810/07 Strength: 1 GM TAB 2351 0126 traMADol (ULTRAM) 50 MG PO 08/25/18 08/26/18 Strength: 50 MG TAB TID PRN PRN PAIN 2351 0126 RIVAROXABAN (XARELTO) 20 MG PO DAILY 08/26/18 0 08/26/18 Strength: 20 MG TAB 105 0126 Current Hospital Medications: Anti-Infective Agents Sig/Roshan [...] Dose Route Stop Time Status Admin Rocuronium [place] 0 .STK-MED ONE 08/30 1308 D C (ZEMURON) .ROUTE Succinylcholine 0 .STK-MED ONE 08/30 [...] 08/26 899 AC 08/29 (PRINIVIL) PO 09/25 09 1026 Metoprolol Tartrate 25 MG BID 08/26 899 AC (LOPRESSOR) PO 09/25 900 2106 Central Nervous System Agents Sig/Roshan Start [...] 1115 2217 Citalopram 40 MG DAILY 08/26 09 AC [...] Time Status Admin Sodium Chloride 1,000 ML .[id number] 08/30 1525 AC (SODIUM CHLORIDE IV 09/29 [...] BID 08/30 2100 AC (COLACE) PO 09/29 2101 Ondansetron HCl 4 MG Q4H PRN PRN 08/30 1525 AC 08/30 (ZOFRAN) IV 09/29 1526 1529 Pantoprazole 40 MG Q12HR 08/29 2100 AC 08/29 (PROTONIX) PO 09/28 2101 2105 Sucralfate 1 GM QID 08/26 09 AC 08/29 (CARAFATE) PO 09/25 0901 2104 Local Anesthetics (Parenteral) Sig/Roshan Start time Last Medication Dose Route Stop Time Status Admin Bupivacaine HCl 0 .STK-MED ONE 08/30 0953 DC (SENSORCAINE 0.25%) .ROUTE Skin And Mucous Membrane Agent Sig/Rohsan Start time Last Medication Dose Route Stop Time Status Admin Cocaine HCl 0 .STK-MED ONE 08/30 0952 DC (COCAINE HCL (C-II)) .ROUTE [place] 1 IXANG Q12HR 08/29 2099 CKD 08/29 Balsam/Trypsin TOPICAL 09/28 (Venelex Ointment Packet) Clotrimazole 1 XIANG BID 08/29 2099 CKD 08/29 (LOTRIMIN) TOPICAL 09/28 Vitamins Sig/Roshan Start time Last Medication Dose Route Stop Time Status Admin Vitamin B Complex/ 1 TAB BID 08/28 2099 CKD Vitamin C PO 09/27 (NEPHRO-JOSÉ) Hydroxocobalamin 1,000 MCG DAILY 08/28 1000 DC 08/29 (VITAMIN B12 VIAL) IM 08/30 09 1027 Allergies: Coded Allergies: No Known Allergies [...] mist tent 08/30 1545 O2 Flow Rate [id number] 08/30 1545 Temp 36.5 08/30 1525 Pulse [...] PRN PRN IV Sodium Chloride 1,000 ML .[id number] IV Morphine Sulfate 0 .STK-MED ONE IV (DC) Morphine Sulfate 2 MG Q4H PRN PRN IV (DC) Hydromorphone HCl 0 .STK-MED ONE .ROUTE (DC) Hydromorphone HCl 0 .STK-MED ONE .ROUTE (DC) Fentanyl Citrate 0 .STK-MED ONE .ROUTE (DC) Cefazolin Sodium 0 .STK-MED ONE .ROUTE (DC) Lidocaine HCl 0 .STK-MED ONE .ROUTE (DC) Rocuronium [place] 0 .STK-MED ONE .ROUTE (DC) Succinylcholine Chloride [...] (DC) Epinephrine 0 .STK-MED ONE .ROUTE (DC) [place] Balsam/Trypsin 1 XIANG Q12HR T OPICAL (CKD) [...] full range of motion, normal in spection 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: alert, oriented X 3, no motor deficit [...] % (Auto) (14 - 44 %) 15.2 [place] % (Auto) (4 - 13 %) 4.9 Eos % (Auto) (0 - 6 %) 0.8 Baso % (Auto) (0 - 2 %) 0.2 Neut # (Auto) (2.0 - 7.6 K/mm3) 8.27 H Lymph # (Auto) (1.0 - 3.8 K/mm3) 1.61 [place] # (Auto) (0.1 - 0.8 K/mm3) 0.52 Eos # (Auto) (0.0 - 0.2 K/mm3) 0.08 Baso # (Auto) (0.0 - 0.2 K/mm3) 0.02 Immature Gran % (0.0 - 2.0 %) 0.7 Nucleated RBC % (0 - 1.0 %) 0.0 Nucleated RBCs # (Man) (0.0 - 0.1 K/mm3) 0.00 Radiology data: Recent Impressions: CAT SCAN - CT HD/BR W W/O CONT 08/30 1719 Report Impression - Status: SIGNED Entered: 08/29/2018 [...] insipidus ddavp prn neuro checks Consultants: critical care/retail event and sales assistant, kin avilez Critical care time: Minutes: 40 [...] findings, assessment and plan of sarah elder. Status post transsphenoidal resection of pituita ry tumor. Admitted to ICU for close monitoring of urine output to monitor for DI. at 1623 Electronically Signed by Melissa Miller MD on 08/30 at 1657 RPT #:[id number] END OF REPORT 2018-08-30 15:04:00-00:00 [facility] ([facility] Neurosurgical Progress Note REPORT#:[id number] REPORT STATUS: Signed DATE:08/30/18 TIME: 1504 PATIENT: LEIGH FRYE UNIT #: [id number] ROOM/BED: [address] : 80 AGE: 38 SEX: F ATTEND: Johana Mckoy MD ADM AUTHOR: Tanya Rodriguez NP * ALL edits or amendments must be made on the el [employer]/computer document * Subjective Comments: patient is s/p transsphenoidal pituitary tumor r esection Objective Physical Exam Cardiovascular: normal capillary refill, regular rate rhythm Respiratory: no distress, symmetric expansion Abdomen: non-tender, normal bowel sounds, soft, no distention 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: alert, oriented X 3, CN II-XII intact [...] NP on 08/20 05/10 at 1532 RPT #:[id number] END OF REPORT 2018-08-30 15:04:00-00:00 [facility] ([facility]) Neurosurgical Progress Note REPORT#:[id number] REPORT STATUS: Signed DATE:08/30/18 TIME: 1504 PATIENT: LEIGH FRYE UNIT #: [id number] ROOM/BED: [address] : 80 AGE: 38 SEX: F ATTEND: Johana Mckoy MD ADM AUTHOR: Tanya Rodriguez NP * ALL edits or amendments must be made on the [employer]/computer document * Tanya Rodriguez NP 08/30/18 1504: Subjective Comments: patient is s/p transsphenoidal pituitary tumor r esection Objective Physical Exam Cardiovascular: normal capillary refill, regular rate rhythm Respiratory: no distress, symmetric expansion Abdomen: non-tender, normal bowel sounds, soft, no distention 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: alert, oriented X 3, CN II-XII intact [...] and elevated serum sodium -Nasal packingin place MaximilianoOzzy 08/31/18 2328: Diagnosis, Assessment Plan Additional comments: Agree wit above Electronically Signed by Tanya Rodriguez NP on 08/20 05/10 at 1532 RPT #:[id number] END OF REPORT 2018-08-30 15:04:00-00:[address] [facility] Neurosurgical Progress Note REPORT#:[id number] REPORT STATUS: Signed DATE:08/30/18 TIME: 150 PATIENT: LEIGH FRYE UNIT #: [id number] ROOM/BED: [address] : 80 AGE: 38 SEX: F ATTEND: Johana Mckoy MD ADM AUTHOR: Tanya Rodriguez NP * ALL edits or amendments must be made on the [employer] document * Tanya Rodriguez NP 08/30/18 1504: Subjective Comments: patient is s/p transsphenoidal pituitary tumor r esection Objective Physical Exam Cardiovascular: normal capillary refill, regular rate rhythm Respiratory: no distress, symmetric expansion Abdomen: non-tender, normal bowel sounds, soft, no distention 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: alert, oriented X 3, CN II-XII intact [...] Ozzy Viera MD on 08/20 05/10 at 0843 [facility] #:[id number] END OF REPORT 2018-08-30 14:27:00-00:00 [id number] [place] [id number] PATIENT NAME: LEIGH FRYE ADMIT DATE: 08/25/18 ACCOUNT NO: [id number] ROOM NO: Z.504 AGE: 38 REPORT TYPE: OPERATIVE REPORT SEX: F ADMITTING PHYSICIAN:Jani Mckoy MD ATTENDING PHYSICIAN:Jani Mckoy MD OPERATION DATE: 08/30/2018 PRIMARY SURGEON: Ozzy Viera MD CARBON ACCOUNTANT: Florentin Morrow MD PREOPERATIVE DIAGNOSIS: Pituitary macroadenoma [...] pituitary instrument to take PATIENT NAME: LEIGH RFYE it out and use it for later [...] By: Ozzy Viera MD WT: OP:GISSELLE/ZULMA/JERSON Conf#: [id number]/DID#: [id number] Authenticated and Edited by Ozzy Viera MD On 09/12/18 7:04:24 PM Electronically Signed by Ozzy Viera MD on at 1906 PATIENT NAME: LEIGH FRYE 2018-08-30 14:16:00-00:00 [id number] [place] [address] PATIENT NAME: LEIGH FRYE ADMIT DATE: 08/25/18 ACCOUNT NO: [id number] ROOM NO: .[facility] AGE: 38 REPORT TYPE: PROGRESS NOTE [...] proceed. Dictated By: Jani Mckoy MD WT: PN:GISSELLE/YONATHAN/NTS Conf#: [id number]/DID#: [id number] Authenticated by Jani Mckoy MD On 06:03:11 AM at 0603 PATIENT NAME: LEIGH FRYE 2018-08-30 12:22:00-00:[address] [facility] ([facility]) General Progress Note REPORT#:[id number] REPORT STATUS: Signed DATE:08/30/18 TIME: 1222 PATIENT: LEIGH FRYE UNIT #: [id number] AGE: 38 SEX: F ATTEND: Johana Mckoy MD ADM AUTHOR: Jani Mckoy MD * ALL edits or amendments must be made on the [employer] document * Subjective Comments: Vital Signs Date [...] 0403 97.9 60 14 103/63 76.6 96 / 2357 97.9 73 14 142/83 102.8 100 / 2143 98.2 74 14 108/71 83.4 97 [...] % (Auto) (14 - 44 %) 19.6 Ballard % (Auto) (4 - 13 %) 6.9 Eos % (Auto) (0 - 6 %) 2.1 Baso % (Auto) (0 - 2 %) 0.5 Neut # (Auto) (2.0 - 7.6 K/mm3) 7.62 H Lymph # (Auto) (1.0 - 3.8 K/mm3) 2.11 Ballard # (Auto) (0.1 - 0.8 K/mm3) 0.74 [...] 0952 DC .ROUTE Epinephrine 0 .STK-MED ONE 08/31 951 DC .ROUTE [employer] 1 XIANG Q12HR 08/29 2100 CKD 08/29 Balsam/Trypsin TOPICAL 09/28 210 210 Clotrimazole 1 XIANG BID 08/29 2100 CKD 08/29 TOPICAL 09/28 2100 210 Pantoprazole 40 MG Q12HR 08/29 2100 AC 08/29 PO 09/28 210 210 Iopamidol 100 ML STAT STA 08/29 1721 DC 08/29 IV 08/29 1722 1739 Iopamidol 100 ML STAT STA 08/29 1659 DC IV 08/29 1700 Vitamin B Complex/ 1 TAB BID 08/28 2100 CKD Vitamin C PO 09/27 210 2104 Zolpidem Tartrate 5 MG BEDTIME PRN [...] Hydrochlorothiazide 25 MG DAILY 08/26 899 AC 08/29 PO 09/25 0901 1026 Lisinopril 20 MG DAILY 08/26 899 AC 08/29 PO 09/25 900 1026 Metoprolol Tartrate 25 MG BID 08/26 899 AC PO 09/25 900 210 Pantoprazole 40 MG DAILY 08/26 899 DC 08/29 PO 09/25 900 1027 Sucralfate 1 GM QID 08/26 899 AC 08/29 PO 09/25 900 2104 Morphine Sulfate 1 MG Q4H PRN PRN 08/26 0040 AC 08/30 IV 09/25 0041 0134 SEE DICTATION Electronically Signed by Jani Mckoy MD o n 08/30/18 at 1223 [facility] #:[id number] END OF REPORT 2018-08-29 15:39:00-00:00 [id number] [place] [address] PATIENT NAME: LEIGH FRYE ADMIT DATE: 08/25/18 ACCOUNT NO: [id number] ROOM NO: Z504 AGE: 38 REPORT TYPE: [...] By: Jani Mckoy MD WT: PN:GISSELLE/YONATHAN/JERSON Conf#: [id number]/DID#: [id number] Authenticated by Jani Mckoy MD On 06:02:45 AM at 0603 PATIENT NAME: LEIGH FRYE 2018-08-29 14:24:00-00:00 [facility] ([facility]) General Progress Note REPORT#:[id number] REPORT STATUS: Signed DATE:08/29/18 TIME: 1424 PATIENT: LEIGH FRYE UNIT #: [id number] [facility] : [facility] AGE: 38 SEX: F ATTEND: Johana Mckoy MD [facility] AUTHOR: Jani Mckoy MD * ALL edits or amendments must be made on the [employer]/computer document * Subjective Comments: Vital Signs Date [...] 78 14 138/83 101.4 100 Room air 08/28 0418 97.9 69 15 110/70 83.2 [...] dedicated thyroid evaluation is recommended. Impression By: ManuelRBLaina - Ko Valles M.D. Current Medications Sig/Roshan Start time Last Medication Dose Route Stop Time Status Admin Pantoprazole 40 MG Q12HR 08/29 2100 AC PO 09/28 210 Vitamin B Complex/ 1 TAB BID 08/28 2100 CKD Vitamin C PO 09/27 210 1026 Zolpidem Tartrate 5 MG BEDTIME PRN PRN 08/28 19 40 AC 08/28 PO 09/27 1941 2358 Hydroxocobalamin 1,000 MCG DAILY 08/28 1000 CKD 08/29 IM 08/30 0901 1027 Ferric Sodium 125 MG Q24H 08/27 09 AC 08/29 Gluconate Complex IV 09/01 0959 1028 Sodium Chloride 100 ML Atorvastatin Calcium 40 MG BEDTIME 08/26 2100 A C 08/28 PO 09/25 210 2145 Heparin Sodium 5,000 UNITS Q8HR 08/26 [...] BID 08/26 899 AC PO 09/25 0901 1028 Pantoprazole 40 MG DAILY 08/26 0900 DC 08/29 PO 09/25 0901 1027 Sucralfate 1 GM QID 08/26 09 AC 08/29 PO 09/25 0901 1224 Morphine Sulfate 1 MG Q4H PRN PRN 08/26 0040 AC 08/29 IV 09/25 0041 0559 SEE DICTATION Electronically Signed by Jani Mckoy MD 08/29/18 at 1424 RPT #:[id number] END OF REPORT 2018-08-29 14:19:00-00:[address] [facility] ([facility]) Neurosurgical Progress Note REPORT#:[id number] REPORT STATUS: Signed DATE:08/29/18 TIME: 1419 PATIENT: LEIGH FRYE UNIT #: [id number] ROOM/BED: [facility] : 80 AGE: 38 SEX: F ATTEND: Jhoana Mckoy MD ADM AUTHOR: Tanya Rodriguez NP * ALL edits or amendments must be made on the [employer]/computer document * Subjective HPI: Patient reports right [...] no distention Genitourinary: deferred Musculoskeletal: normal inspection 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: alert, oriented X 3, CN II-XII intact [...] NP on 08/20 05/10 at 1531 RPT #:[id number] END OF REPORT 2018-08-29 14:19:00-00:00 [facility] ([facility] Neurosurgical Progress Note REPORT#:[id number] REPORT STATUS: Signed DATE:08/29/18 TIME: 1419 PATIENT: LEIGH FRYE UNIT #: [id number] ROOM[address]BED: [address] : 80 AGE: 38 SEX: F ATTEND: Johana Mckoy MD ADM AUTHOR: Tanya Rodriguez NP * ALL edits or amendments must be made on the [employer]/computer document * Tanya Rodriguez NP 08/29/18 1419: [...] Ox FiO2 08/28-08/29 97.7-98.2 60-74 14 103-142/63-83 7 6.6-102.8 96-100 24 hour I O ending at [...] no distention Genitourinary: deferred Musculoskeletal: normal inspection 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: alert, oriented X 3, CN II-XII intact [...] NP on 08/20 05/10 at 1531 RPT #:[id number] END OF REPORT 2018-08-29 14:19:00-00:00 [facility] ([facility]) Neurosurgical Progress Note REPORT#:[id number] REPORT STATUS: Signed DATE:08/29/18 TIME: 1418 PATIENT: LEIGH FRYE UNIT #: [id number] ROOM/BED: [address] : 80 AGE: 38 SEX: F ATTEND: Johana Mckoy MD ADM AUTHOR: Tanya Rodriguez NP * ALL edits or amendments must be made on the [employer]/computer document * Tanya Rodriguez NP 08/29/18 1419: [...] no distention Genitourinary: deferred Musculoskeletal: normal inspection 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: alert, oriented X 3, CN II-XII intact [...] ord ered and [facility] Ozzy Viera 08/31/18 2328: Diagnosis, Assessment Plan Additional comments: Agree with above Electronically Signed by Tanya Rodriguez NP on 08/20 05/10 at 1531 Electronically Signed by Ozzy Viera MD on 08/20 05/10 at 2329 RPT #:[id number] END OF REPORT 2018-08-29 08:58:00-00:00 [facility] ([facility]) Podiatry Consult Note REPORT#:[id number] REPORT STATUS: Signed DATE:08/29/18 TIME: 0858 PATIENT: LEIGH FRYE UNIT #: [id number] ROOM[address]BED: [address] : 80 AGE: 38 SEX: F ATTEND: Tho Mckoy MD ADM AUTHOR: Malu Stiles DPM R1 * ALL edits or amendments must be made on the el [employer]/computer document * History of Present Illness HPI: [...] TAB.RAPDIS ATORVASTATIN (LIPITOR) 40 MG PO BEDTIME 08/26/18 Strength: 40 MG TAB 2350 0126 [...] (NEPHRO-JOSÉ) Hydroxocobalamin 1,000 MCG DAILY 08/28 1000 CK D 08/28 (VITAMIN B12 VIAL) IM 08/30 0901 [...] R1 on 0 08/30/18 at 0931 RPT #:[id number] END OF REPORT 2018-08-29 08:58:00-00:[address] [facility] ([facility]) Podiatry Consult Note REPORT#:[id number] REPORT STATUS: Signed DATE:08/29/18 TIME: 08 PATIENT: LEIGH FRYE UNIT #: [id number] [address]BED: [address] : 80 AGE: 38 SEX: F ATTEND: Johana Mckoy MD ADM AUTHOR: Malu Stiles DPM R1 * ALL edits or amendments must be made on the [employer]/computer document * History of Present Illness HPI: [...] (ZOFRAN ODT) 2349 0126 Strength: 4 MG TAB.ANGEL ATORVASTATIN (LIPITOR) 40 MG PO BEDTIME 9 08/26/18 Strength: 40 MG TAB 2350 0126 hydrOXYzine HCL (ATARAX) 50 MG PO 08/25/18 06/10/07 Strength: 50 MG TAB DAILY PRN PRN [...] Status Admin Famotidine 20 MG BID 08/26 09 DC 08/28 (PEPCID) PO 09/25 0901 0847 Pantoprazole 40 MG DAILY 08/26 09 AC 08/28 (PROTONIX) PO 09/25 0901 0847 Sucralfate 1 GM QID 08/26 09 AC 08/28 (CARAFATE) PO 09/25 0901 2145 [...] DPM R1 on 0 08/30/18 at 0931 Electronically Signed by Matilde Burnham DPM on at 1434 RPT #:[id number] END OF REPORT 2018-08-28 18:00:00-00:00 [id number] [place] [address] PATIENT NAME: LEIGH FRYE ADMIT DATE: 08/25/18 ACCOUNT NO: [id number] ROOM NO: Z.504 AGE: 38 REPORT TYPE: [...] done. [facility], steroids and 5 [...] By: Jani Mckoy MD WT: PN:GISSELLE/YONATHAN/JERSON Conf#: [id number]/DID#: [id number] Authenticated by Jani Mckoy MD On 06:01:53 AM PATIENT NAME: LEIGH FRYE at 0602 PATIENT NAME: LEIGH FRYE 2018-08-28 17:05:00-00:00 [id number] [place] [address] PATIENT NAME: LEIGH FRYE ADMIT DATE: 08/25/18 ACCOUNT NO: [id number] ROOM NO: Z.504 AGE: 38 REPORT TYPE: PROGRESS NOTE SEX: F ADMITTING PHYSICIAN:Jani Mckoy MD ATTENDING PHYSICIAN:Jani Mckoy MD DATE: 08/27/2018 ADDENDUM TO GENERAL PROGRESS NOTE SUBJECTIVE: The patient is a 38-year-old female, transferred from [facility] with a history of headaches and finding [...] unchanged. Dictated By: Jani Mckoy MD WT: PN:Z.AMANDA/YONATHAN/JERSON Conf#: [id number]/DID#: [id number] PATIENT NAME: LEIGH FRYE Authenticated by Jani Mckoy MD On 06:01:46 AM at 0602 PATIENT NAME: LEIGH FRYE 2018-08-28 14:01:00-00:[address] [facility] General Progress Note REPORT#:[id number] REPORT STATUS: Signed DATE:08/28/18 TIME: 1401 PATIENT: LEIGH FRYE UNIT #: [id number] [facility] AGE: 38 SEX: F ATTEND: Johana Mckoy MD ADM AUTHOR: Jani Mckoy MD * ALL edits or amendments must be made on the [employer]/computer document * Subjective Comments: Vital Signs Date Time Temp Pulse Resp B/P B/P Pulse O2 O2 F low FiO2 Mean Ox Delivery Rate 08/28 1153 97.3 61 14 111/55 73.5 100 Room air 08/28 0735 98.1 78 14 138/83 101.4 100 Room air 08/28 0418 97.9 69 15 110/70 83.2 97 Room air / 2344 98.2 61 15 111/63 78.5 99 Room air 08/27 2012 98.1 74 16 154/78 103.4 99 Room air 06/ 1546 97.7 62 14 127/72 90.0 98 Room air 06/08 1217 97.7 64 14 144/71 95.3 96 Room air 06/08 0751 98.1 77 14 122/72 89.1 98 Room air 06/08 0436 98.2 59 15 119/73 88.3 97 Room air 06/07 2324 98.2 75 14 138/74 95.2 96 Room air 06/07 1943 98.4 77 15 120/74 89.5 97 Room air /07 1550 98.8 69 16 111/73 85.4 97 Room air Microbiology: 08/26 0004 NASAL: MRSA Screen - COMP Current Medications Sig/Roshan Start time Last Medication Dose Route Stop Time Status Admin Vitamin B Complex/ 1 TAB BID 08/28 2099 CKD Vitamin C PO 09/27 2100 Hydroxocobalamin 1,000 MCG DAILY 08/28 1000 CKD 08/28 IM 08/30 0901 1050 Ferric Sodium 125 MG Q24H 08/27 0900 AC 08/28 Gluconate Complex IV 09/01 0959 0844 Sodium Chloride 100 ML Atorvastatin Calcium 40 MG BEDTIME 08/26 2100 A C 08/27 PO 09/25 2100 2020 Heparin Sodium 5,000 UNITS Q8HR 08/26 [...] DC 08/28 Mononitrate PO 09/25 0901 0848 Lisinopril 20 MG DAILY 08/26 899 AC 08/28 PO 09/25 0901 0848 Metoprolol Tartrate 25 MG BID 08/26 899 AC PO 09/25 0901 0848 Pantoprazole 40 MG DAILY 08/26 899 AC 08/28 PO 09/25 0901 0847 Sucralfate 1 GM QID 08/26 899 AC 08/28 PO 09/25 0901 1324 Morphine Sulfate 1 MG Q4H PRN PRN 08/26 0040 AC 08/28 IV 09/25 0041 1324 SEE DICTATION Electronically Signed by Jani Mckoy MD o n 08/28/18 at 1402 RPT #:[id number] END OF REPORT 2018-08-28 13:01:00-00:[address] [facility]) Neurosurgical Progress Note REPORT#:[id number] REPORT STATUS: Signed DATE:08/28/18 TIME: 1301 PATIENT: LEIGH FRYE UNIT #: [id number] ROOM[address]BED: [address] : 80 AGE: 38 SEX: F ATTEND: Johana Mckoy MD ADM AUTHOR: Ozzy Viera MD * ALL edits or amendments must be made on the el [employer]/computer document * Subjective Chief Complaint: No acute [...] full range of motion, normal in spection 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: alert, oriented X 3, CN II-XII intact [...] Viera MD on 12/08 at 1302 RPT #:[id number] END OF REPORT 2018-08-27 16:10:00-00:00 [facility] ([facility]) General Progress Note REPORT#:[id number] REPORT STATUS: Signed DATE:08/27/18 TIME: 1610 PATIENT: LEIGH FRYE UNIT #: [id number] [facility] AGE: 38 SEX: F [...] 69 14 120/69 85.7 98 Room air 06/07 0751 97.5 62 14 124/74 90.9 98 Room air 06/07 0457 97.5 64 14 103/64 77.1 98 Room air 06/06 2337 98.2 63 14 155/90 111.6 100 [...] Count (129 - 368 K/MM3) 305 Microbiology: 08/26 0004 NASAL: MRSA Screen - COMP Current Medications Sig/Roshan Start time Last Medication Dose Route Stop Time Status Admin Ferric Sodium 125 MG Q24H 08/27 0900 AC 08/27 Gluconate Complex IV 09/01 0959 [...] 08/26 899 AC 08/27 Hydrobromide PO 09/25 0901 0957 Famotidine 20 MG BID 08/26 899 AC 08/27 PO 09/25 0901 1008 Hydrochlorothiazide 25 MG DAILY 08/26 899 AC 08/27 PO 09/25 0901 0956 Isosorbide 30 MG DAILY 08/26 899 AC 08/27 Mononitrate PO 09/25 0901 0957 Lisinopril 20 MG DAILY 08/26 899 AC 08/27 PO 09/25 0901 0957 Metoprolol Tartrate 25 MG BID 08/26 899 AC PO 09/25 0901 0956 Pantoprazole 40 MG DAILY 08/26 899 AC 08/27 PO 09/25 0901 0957 Sucralfate 1 GM QID 08/26 899 AC 08/27 PO 09/25 0901 1311 Morphine Sulfate 1 MG Q4H PRN PRN 08/26 0040 AC 08/27 IV 09/25 0041 0959 SEE DICTATION Electronically Signed by Jani Mckoy MD o n 08/27/18 at 1611 RPT #:[id number] END OF REPORT 2018-08-27 12:11:00-00:00 [facility] ([facility]) Neurosurgical Progress Note REPORT#:[id number] REPORT STATUS: Signed DATE:08/27/18 TIME: 1211 PATIENT: LEIGH FRYE UNIT #: [id number] ROOM[address]BED: [address] : 80 AGE: 38 SEX: F ATTEND: Johana Mckoy MD ADM AUTHOR: Ozzy Viera MD * ALL edits or amendments must be made on the [employer] document * Subjective Chief Complaint: No acute events overnight Objective General VS/I O: Vital Signs Date Temp Pulse Resp B/P B/P Mean Pulse Ox FiO2 08/26-08/27 98.1-98.8 59-77 14-16 111-138/69-74 85.4-95.2 96-98 [...] full range of motion, normal in spection 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: alert, oriented X 3, CN II-XII intact [...] Ozzy Viera MD on 11/07 at 1212 [facility] #:[id number] END OF REPORT 2018-08-26 19:29:00-00:00 [id number] [place] [address] PATIENT NAME: LEIGH FRYE ADMIT DATE: 08/25/18 ACCOUNT NO: [id number] ROOM NO: [facility] AGE: 38 REPORT TYPE: HISTORY AND PHYSICAL SEX: F ADMITTING PHYSICIAN:Jani Mckoy MD ATTENDING PHYSICIAN:Jani Mckoy MD ADMISSION DATE: 08/25/2018 HISTORY OF PRESENT ILLNESS: The patient is a 38- year-old female, accepted by Dr. Viera, neurosurgeon; transferred from [place]. She was admitted with headaches, found to [...] carcinoid colon resection. The transfer records from [facility] did not indicate that she takes morphine, [...] a re intact. LABORATORY DATA: Lab data [facility] reviewed and there are no high [...] pituitary hormones. We will get her vision fijanet ds checked and discuss with Dr. Viera [...] 8 hours. Check venous thrombophilia profile to dec fariba if she needs long-term prophylaxis. A complex case. Dr. Viera is followi tenzin. We will get additional consults as appropriate. I d id advise the patient that she will need a trial of Topamax to prevent migraines and she agrees to b e started. I will start at 50 mg twice a day. Dictated By: Jani Mckoy MD WT: HP:GISSELLE/YONATHAN/JERSON Conf#: [id number]/DID#: [id number] Authenticated by Jani Mckoy MD On 05:59:29 AM at 0559 PATIENT NAME: LEIGH FRYE 2018-08-26 15:16:00-00:00 [id number] [place] [address] PATIENT NAME: LEIGH FRYE ADMIT DATE: 08/25/18 ACCOUNT NO: [id number] ROOM NO: Z.535 AGE: 38 REPORT TYPE: ECHOCARDIOGRAM SEX: F ADMITTING PHYSICIAN:Jani Mckoy MD ATTENDING PHYSICIAN:Jani Mckoy MD *[facility]* [address] [place] [address] Transthoracic Echocardiogram Patient: Leigh Frye Study Date: 08/26/2018 BP: 120 / 69 Location: [facility] URN: [id number] : 1980 Age: 38 Height: 72 in / 182.9 cm Gender: F Weight: 411 .1 lb / 186.9 kg BMI/BSA: 55.9 kg/m 2 / 3.19 m 2 *Ordering Physician: * Jani MckoyInterpreting Physician: * Qiana Waters MD *Sheet Metal Mechanic: * Blade Smith BS, RCS, RVS Indications: HX Saddle PE. Study data: Transthoracic echocardiogram. Proced ure: Transthoracic echocardiography was performed. Images were obta ined using a [employer]har[employer] cardiac ultrasound machine. Image quality was poor. [...] valve Value Ref IVS, ES 1.5 cm OH v, ED 0.67 m/sec --------- Right ventricle [...] Peak grad, S 4 mm Hg Pulmonary art demond Value Ref Pressure, S 15.9 mm Hg [...] 1516 PATIENT NAME: LEIGH FRYE 2018-08-26 09:35:00-00:00 [facility] ([facility]) Neurosurgical Consultation REPORT#:[id number] REPORT STATUS: Signed DATE:08/26/18 TIME: 934 PATIENT: LEIGH FRYE UNIT #: [id number] ROOM[address]BED: [address] : 80 AGE: 38 SEX: F ATTEND: Johana Mckoy MD ADM AUTHOR: Ozzy Viera MD * ALL edits or amendments must be made on the [employer]/computer document * History of Present Illness Requesting [...] 0126 SUMAtriptan (IMITREX) 50 MG PO ONCEPRN 9 08/26/18 Strength: 50 MG TAB 2348 0126 [...] 899 CAN (PRINZIDE 20-25 MG PO 09/25 900 Tab) Metoprolol Tartrate 25 MG BID 08/26 899 AC (LOPRESSOR) PO 09/25 900 Central Nervous System Agents Sig/Roshan Start time Last Medication Dose Route Stop Time Status Admin Citalopram 40 MG DAILY 08/26 899 AC Hydrobromide PO 09/25 900 (CeleXA) Morphine Sulfate 1 MG Q4H PRN PRN 08/26 0040 AC 08/26 (morphine SULFATE (C- IV 09/25 0041 0726 II)) Tramadol HCl 50 MG TID [...] Result Date Time Pulse Ox 98 08/26 750 B/P 124/74 08/26 750 B/P Mean 90.9 08/26 750 O2 Delivery Room air 08/26 750 Temp 97.5 08/26 750 Pulse 62 08/26 750 Resp 14 08/26 750 24 hour I O ending at 0700: 08/26 0700 08/25 1900 Intake Total 360 Output Total Balance [...] full range of motion, normal in spection 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: alert, oriented X 3, CN II-XII intact [...] with Dr. Mckoy Reviewed medical records from [facility] Electronically Signed by Ozzy Viera MD on 10/07 at 0940 RPT #:[id number] END OF REPORT 2018-08-23 06:36:00-00:00 Patient Name: LEIGH FRYE [facility] : 1980. Age: 38 years. Gender: Female. MR: [id number]. Location: [facility]. Provider: Janette Porter DO. EXAM: Brain Pituitary [...] optic chiasm. No acute intracranial abnormality. SL: [id number] 2018-08-23 06:36:00-00:00 Patient Name: LEIGH FRYE [facility] : 1980. Age: 38 years. Gender: Female. MR: [id number]. Location: [facility]. Provider: Janette Porter DO. EXAM: Brain Pituitary [...] optic chiasm. No acute intracranial abnormality. SL: [id number] 2018-08-23 06:36:00-00:00 Patient Name: LEIGH FRYE [facility] : 1980. Age: 38 years. Gender: Female. MR: [id number]. Location: [facility]. Provider: Janette Porter DO. EXAM: Brain Pituitary [...] optic chiasm. No acute intracranial abnormality. SL: [id number] 2018-08-23 06:36:00-00:00 Patient Name: LEIGH FRYE [facility] : 1980. Age: 38 years. Gender: Female. MR: [id number]. Location: [facility]. Provider: Janette Porter DO. EXAM: Brain Pituitary [...] optic chiasm. No acute intracranial abnormality. SL: [id number] 2018-08-23 06:36:00-00:00 Patient Name: LEIGH FRYE [facility] : 1980. Age: 38 years. Gender: Female. MR: [id number]. Location: [facility]. Provider: Janette Porter DO. EXAM: Brain Pituitary [...] optic chiasm. No acute intracranial abnormality. SL: [id number] 2018-08-22 22:59:00-00:00 Patient Name: LEIGH FRYE [facility] : 1980; Age: 38 years Female MR: [id number] Study: Carotid artery Doppler bilat US 08/22/2018 [...] occlusion High, low, or Variable undetectable SL: [id number] 2018-08-22 22:59:00-00:00 Patient Name: LEIGH FRYE [facility] : 1980; Age: 38 years Female MR: [id number] Study: Carotid artery Doppler bilat US 08/22/2018 [...] occlusion High, low, or Variable undetectable SL: [id number] 2018-08-22 22:59:00-00:00 Patient Name: LEIGH FRYE [facility] : 1980; Age: 38 years Female MR: [id number] Study: Carotid artery Doppler bilat US 08/22/2018 [...] occlusion High, low, or Variable undetectable SL: [id number] 2018-08-22 22:59:00-00:00 Patient Name: LEIGH FRYE [facility] : 1980; Age: 38 years Female MR: [id number] Study: Carotid artery Doppler bilat US 08/22/2018 [...] occlusion High, low, or Variable undetectable SL: [id number] 2018-08-22 22:59:00-00:00 Patient Name: LEIGH FRYE [facility] : 1980; Age: 38 years Female MR: [id number] Study: Carotid artery Doppler bilat US 08/22/2018 [...] occlusion High, low, or Variable undetectable SL: [id number] 2018-08-22 20:45:00-00:00 EXAM: CT BRAIN WITHOUT CONTRAST [facility] DATE: 08/22/2018 8:45 PM CDT INDICATION: [...] performed for complete assessment. SL: JNGUYEN-PC 2018-08-22 20:45:00-00:00 EXAM: CT BRAIN WITHOUT CONTRAST [facility] DATE: 08/22/2018 8:45 PM CDT INDICATION: [...] performed for complete assessment. SL: JNGUYEN-PC 2018-08-22 20:45:00-00:00 EXAM: CT BRAIN WITHOUT CONTRAST [facility] DATE: 08/22/2018 8:45 PM CDT INDICATION: [...] performed for complete assessment. SL: JNGUYEN-PC 2018-08-22 20:45:00-00:00 EXAM: CT BRAIN WITHOUT CONTRAST [facility] DATE: 08/22/2018 8:45 PM CDT INDICATION: [...] performed for complete assessment. SL: JNGUYEN-PC 2018-08-22 20:45:00-00:00 EXAM: CT BRAIN WITHOUT CONTRAST [facility] DATE: 08/22/2018 8:45 PM CDT INDICATION: [...] may be performed for complete assessment. [facility] 16:05:00-00:00 Clinical Indication: - chest pain, dys pnea x 2 days; [facility] Comparison: None FINDINGS: Single AP chest radiograph s hows normal lung volumes without interstitial or airspace opacities, pleural effusions or pneumothorax. The heart size and pulmonary vasculature are normal. The trachea is midline. There are no clinically significant osseous abnormalities noted. IMPRESSION: No chest radiographic evidence of acute cardiopu lmonary disease. SL: [facility] 2018-08-22 16:05:00-00:00 Clinical Indication: - chest pain, dys pnea x 2 days; [facility] Comparison: None FINDINGS: Single AP chest radiograph s hows normal lung volumes without interstitial or airspace opacities, pleural effusions or pneumothorax. The heart size and pulmonary vasculature are normal. The trachea is midline. There are no clinically significant osseous abnormalities noted. IMPRESSION: No chest radiographic evidence of acute cardiopu lmonary disease. SL: [facility] 2018-08-22 16:05:00-00:00 Clinical Indication: - chest pain, dys pnea x 2 days; [facility] Comparison: None FINDINGS: Single AP chest radiograph s hows normal lung volumes without interstitial or airspace opacities, pleural effusions or pneumothorax. The heart size and pulmonary vasculature are normal. The trachea is midline. There are no clinically significant osseous abnormalities noted. IMPRESSION: No chest radiographic evidence of acute cardiopu lmonary disease. : [facility] 2018-08-22 16:05:00-00:00 Clinical Indication: - chest pain, dys pnea x 2 days; [facility] Comparison: None FINDINGS: Single AP chest radiograph s hows normal lung volumes without interstitial or airspace opacities, pleural effusions or pneumothorax. The heart size and pulmonary vasculature are normal. The trachea is midline. There are no clinically significant osseous abnormalities noted. IMPRESSION: No chest radiographic evidence of acute cardiopu lmonary disease. SL: CUATEOSKAR 2018-08-22 16:05:00-00:00 Clinical Indication: - chest pain, dys pnea x 2 days; [facility] Comparison: None FINDINGS: Single AP chest radiograph s hows normal lung volumes without interstitial or airspace opacities, pleural effusions or pneumothorax. The heart size and pulmonary vasculature are normal. The trachea is midline. There are no clinically significant osseous abnormalities noted. IMPRESSION: No chest radiographic evidence of acute cardiopu lmonary disease. SL: [facility] 2018-08-18 01:53:00-00:00 CT THORAX: PE PROTOCOL [facility] Clinical Indication: - r/o PE. Chest [...] are no pleural effusions. There is no pne umothorax. AIRWAY: The central airway is patent. HEART: [...] thyroid ultrasound can be obtained. SL: MICHAELLE 2018-08-18 01:53:00-00:00 CT THORAX: PE PROTOCOL [facility] Clinical Indication: - r/o PE. Chest [...] thyroid ultrasound can be obtained. SL: MICHAELLE 2018-08-18 01:53:00-00:00 CT THORAX: PE PROTOCOL [facility] Clinical Indication: - r/o PE. Chest [...] with thyroid ultrasound can be obtained. SL: ALDAIR 2018-08-18 01:53:00-00:00 CT THORAX: PE PROTOCOL [facility] Clinical Indication: - r/o PE. Chest [...] with thyroid ultrasound can be obtained. SL: ALDAIR 2018-08-18 01:53:00-00:00 CT THORAX: PE PROTOCOL [facility] Clinical Indication: - r/o PE. Chest [...] with thyroid ultrasound can be obtained. SL: ALDAIR-Eden 2018-08-17 23:13:00-00:00 Chest, single view dated 08/18/2018. [facility] HISTORY: Chest pain. Comparison is made to a prior study dated 2018. The heart is normal in size. The cardiomediastinal shadow is stable. The lungs appear clear. The pulmonary vasculature appears normal in caliber. No acute pleural space abnormalities are detected. IMPRESSION: 1. No radiographic evidence of acute cardiopulmo nary disease. SL: 131 2018-08-17 23:13:00-00:00 Chest, single view dated 08/18/2018. [facility] HISTORY: Chest pain. Comparison is made to a prior study dated 2018. The heart is normal in size. The cardiomediastinal shadow is stable. The lungs appear clear. The pulmonary vasculature appears normal in caliber. No acute pleural space abnormalities are detected. IMPRESSION: 1. No radiographic evidence of acute cardiopulmo nary disease. SL: 131 2018-08-17 23:13:00-00:00 Chest, single view dated 08/18/2018. [facility] HISTORY: Chest pain. Comparison is made to a prior study dated 2018. The heart is normal in size. The cardiomediastinal shadow is stable. The lungs appear clear. The pulmonary vasculature appears normal in caliber. No acute pleural space abnormalities are detected. IMPRESSION: 1. No radiographic evidence of acute cardiopulmo nary disease. SL: 131 2018-08-17 23:13:00-00:00 Chest, single view dated 08/18/2018. [facility] HISTORY: Chest pain. Comparison is made to a prior study dated 2018. The heart is normal in size. The cardiomediastinal shadow is stable. The lungs appear clear. The pulmonary vasculature appears normal in caliber. No acute pleural space abnormalities are detected. IMPRESSION: 1. No radiographic evidence of acute cardiopulmo nary disease. SL: 131 2018-08-17 23:13:00-00:00 Chest, single view dated 08/18/2018. [facility] HISTORY: Chest pain. Comparison is made to a prior study dated 2018. The heart is normal in size. The cardiomediastinal shadow is stable. The lungs appear clear. The pulmonary vasculature appears normal in caliber. No acute pleural space abnormalities are detected. IMPRESSION: 1. No radiographic evidence of acute cardiopulmo nary disease. SL: 131 2018-08-12 01:43:00-00:00 CTA CHEST WITH CONTRAST [facility] INDICATION: Chest pain, hist ory of [...] 2.5 cm right thyroid no dule. The [employer] ([employer]) consensus guidelines for incidental thyroid nodules detected on CT or MRI recommend: Age < 35 years < 1 cm: No further evaluation >= 1 cm: Evaluate with thyroid ultrasound Age >= 35 years < 1.5 cm: No further evaluation >= 1.5 cm: Evaluate with thyroid ultrasound SL:16 2018-08-12 01:43:00-00:00 CTA CHEST WITH CONTRAST [facility] INDICATION: Chest pain, hist ory of [...] 2.5 cm right thyroid no dule. The [employer] (A[employer]) consensus guidelines for incidental thyroid nodules detected on CT or MRI recommend: Age < 35 years < 1 cm: No further evaluation >= 1 cm: Evaluate with thyroid ultrasound Age >= 35 years < 1.5 cm: No further evaluation >= 1.5 cm: Evaluate with thyroid ultrasound SL:16 2018-08-12 01:43:00-00:00 CTA CHEST WITH CONTRAST [facility] INDICATION: Chest pain, hist ory of [...] 2.5 cm right thyroid no dule. The [employer] (ACR) consensus guidelines for incidental thyroid nodules detected on CT or MRI recommend: Age < 35 years < 1 cm: No further evaluation >= 1 cm: Evaluate with thyroid ultrasound Age >= 35 years < 1.5 cm: No further evaluation >= 1.5 cm: Evaluate with thyroid ultrasound SL:2018-08-12 01:43:00-00:00 CTA CHEST WITH CONTRAST [facility] INDICATION: Chest pain, hist ory of [...] 2.5 cm right thyroid no dule. The [employer] (ACR) consensus guidelines for incidental thyroid nodules detected on CT or MRI recommend: Age < 35 years < 1 cm: No further evaluation >= 1 cm: Evaluate with thyroid ultrasound Age >= 35 years < 1.5 cm: No further evaluation >= 1.5 cm: Evaluate with thyroid ultrasound SL:2018-08-12 01:43:00-00:00 CTA CHEST WITH CONTRAST [facility] INDICATION: Chest pain, hist ory of [...] 2.5 cm right thyroid no dule. The [employer] (ACR) consensus guidelines for incidental thyroid nodules detected on CT or MRI recommend: Age < 35 years < 1 cm: No further evaluation >= 1 cm: Evaluate with thyroid ultrasound Age >= 35 years < 1.5 cm: No further evaluation >= 1.5 cm: Evaluate with thyroid ultrasound SL:2018-08-12 00:41:00-00:00 Clinical Indication: - chest pain, dys pnea x 2 hours [facility] Comparison: None FINDINGS: The AP chest radiograph show s normal lung volumes without interstitial or airspace opacities, pleural effusions or pneumothorax. The cardiomediastinal contours are normal. The t rachea is midline. There are no clinically significant osseous abno rmalities noted. IMPRESSION: No chest radiographic evidence of acute cardiopu lmonary disease. SL:82 2018-08-12 00:41:00-00:00 Clinical Indication: - chest pain, dys pnea x 2 hours [facility] Comparison: None FINDINGS: The AP chest radiograph show s normal lung volumes without interstitial or airspace opacities, pleural effusions or pneumothorax. The cardiomediastinal contours are normal. The t rachea is midline. There are no clinically significant osseous abno rmalities noted. IMPRESSION: No chest radiographic evidence of acute cardiopu lmonary disease. SL:82 2018-08-12 00:41:00-00:00 Clinical Indication: - chest pain, dys pnea x 2 hours [facility] Comparison: None FINDINGS: The AP chest radiograph show s normal lung volumes without interstitial or airspace opacities, pleural effusions or pneumothorax. The cardiomediastinal contours are normal. The t rachea is midline. There are no clinically significant osseous abno rmalities noted. IMPRESSION: No chest radiographic evidence of acute cardiopu lmonary disease. SL:82 2018-08-12 00:41:00-00:00 Clinical Indication: - chest pain, dys pnea x 2 hours [facility] Comparison: None FINDINGS: The AP chest radiograph show s normal lung volumes without interstitial or airspace opacities, pleural effusions or pneumothorax. The cardiomediastinal contours are normal. The t rachea is midline. There are no clinically significant osseous abno rmalities noted. IMPRESSION: No chest radiographic evidence of acute cardiopu lmonary disease. SL:82 2018-08-12 00:41:00-00:00 Clinical Indication: - chest pain, dys pnea x 2 hours [facility] Comparison: None FINDINGS: The AP chest radiograph show s normal lung volumes without interstitial or airspace opacities, pleural effusions or pneumothorax. The cardiomediastinal contours are normal. The t rachea is midline. There are no clinically significant osseous abno rmalities noted. IMPRESSION: No chest radiographic evidence of acute cardiopu lmonary disease. :82 2018-07-29 20:50:00-00:00 Procedure: CT Pulmonary Angiogram. [facility] Clinical Indication: Previou s pulmonary emboli, chest [...] ultrasound may be helpful if indicated clinically. [id number] 2018-07-29 20:50:00-00:00 Clinical Indication: - sore throat [facility] Comparison: None Technique: CT of the neck [...] recommend nonemergent thyroid sonogram SL: NASIM 2018-07-29 20:50:00-00:00 Procedure: CT Pulmonary Angiogram. [facility] Clinical Indication: Previou s pulmonary emboli, chest [...] ultrasound may be helpful if indicated clinically. SL:[id number] 2018-07-29 20:50:00-00:00 Clinical Indication: - sore throat [facility] Comparison: None Technique: CT of the neck [...] recommend nonemergent thyroid sonogram SL: NASIM 2018-07-29 20:50:00-00:00 Procedure: CT Pulmonary Angiogram. [facility] Clinical Indication: Previou s pulmonary emboli, chest [...] ultrasound may be helpful if indicated clinically. SL:[id number] 2018-07-29 20:50:00-00:00 Clinical Indication: - sore throat [facility] Comparison: None Technique: CT of the neck [...] recommend nonemergent thyroid sonogram SL: NASIM 2018-07-29 20:50:00-00:00 Procedure: CT Pulmonary Angiogram. [facility] Clinical Indication: Previou s pulmonary emboli, chest [...] ultrasound may be helpful if indicated clinically. SL:[id number] 2018-07-29 20:50:00-00:00 Clinical Indication: - sore throat [facility] Comparison: None Technique: CT of the neck [...] recommend nonemergent thyroid sonogram SL: NASIM 2018-07-29 20:50:00-00:00 Procedure: CT Pulmonary Angiogram. [facility] Clinical Indication: Previou s pulmonary emboli, chest [...] ultrasound may be helpful if indicated clinically. SL:[id number] 2018-07-29 20:50:00-00:00 Clinical Indication: - sore throat [facility] Comparison: None Technique: CT of the neck [...] Indication: Chest p ain, shortness of breath.. [facility] Comparison: None FINDINGS: PA and lateral views of the chest have been prov ided. Lungs are clear. Heart size is normal. Central pulmonary vasculat ure appears normal. No effusion. No pneumothorax. No radiographically apparent acute osseous abnor mality. IMPRESSION: 1. No radiographically apparent acute cardiopulm onary process. : [id number] 2018-07-29 19:35:00-00:00 Clinical Indication: Chest p ain, shortness of breath.. [facility] Comparison: None FINDINGS: PA and lateral views of the chest have been prov ided. Lungs are clear. Heart size is normal. Central pulmonary vasculat ure appears normal. No effusion. No pneumothorax. No radiographically apparent acute osseous abnor mality. IMPRESSION: 1. No radiographically apparent acute cardiopulm onary process. : [id number] 2018-07-29 19:35:00-00:00 Clinical Indication: Chest p ain, shortness of breath.. [facility] Comparison: None FINDINGS: PA and lateral views of the chest have been prov ided. Lungs are clear. Heart size is normal. Central pulmonary vasculat ure appears normal. No effusion. No pneumothorax. No radiographically apparent acute osseous abnor mality. IMPRESSION: 1. No radiographically apparent acute cardiopulm onary process. : [id number] 2018-07-29 19:35:00-00:00 Clinical Indication: Chest p ain, shortness of breath.. [facility] Comparison: None FINDINGS: PA and lateral views of the chest have been prov ided. Lungs are clear. Heart size is normal. Central pulmonary vasculat ure appears normal. No effusion. No pneumothorax. No radiographically apparent acute osseous abnor mality. IMPRESSION: 1. No radiographically apparent acute cardiopulm onary process. : [id number] 2018-07-29 19:35:00-00:00 Clinical Indication: Chest p ain, shortness of breath.. [facility] Comparison: None FINDINGS: PA and lateral views of the chest have been prov ided. Lungs are clear. Heart size is normal. Central pulmonary vasculat ure appears normal. No effusion. No pneumothorax. No radiographically apparent acute osseous abnor mality. IMPRESSION: 1. No radiographically apparent acute cardiopulm onary process. SL: [id number]
[2022-09-11 19:55] LABS: Absolute Lymphocytes (CBC) 2.4 K/uL (0.7-4.9); Hematocrit 47.4 % (36.0-45.0); Lymphocytes % 30.1 % (15.3-44.8); MCV 84.4 fL (80-100); MPV 7.5 fL (7.6-11.3); RBC Red Blood Cell Count 5.61 M/uL (3.86-4.86)
[2022-09-11 20:17] LABS: Albumin 3.4 g/dL (3.4-5.0); Bilirubin Direct 0.1 mg/dL (0-0.2); Bilirubin Indirect, Calculated 0.4 mg/dL (0.2-0.8); Bilirubin Total 0.5 mg/dL (0.2-1.0); Protein, Total 8.2 g/dL (6.4-8.2)
[2022-09-11] MEDS ORDERED: NITROGLYCERIN 0.4 MG/TAB SL ONE (20:54)
--- NOTE | 2022-09-11 21:38 | RAD REPORT ---
EXAM DESCRIPTION: CT - Angio Aorta For Dissection - 09/11/2022 9:26 pm CLINICAL HISTORY: Chest pain radiating to the back. No COMPARISON: No comparisons TECHNIQUE: CT angiography of the aorta was performed with MIPs. All CT scans are performed using dose optimization technique as appropriate and may include automated exposure control or mA/KV adjustment according to patient size. FINDINGS: A left aortic arch is present with normal branching pattern of the great vessels.No acute aortic finding is seen such as aneurysm, penetrating ulcer or dissection. The celiac axis, SMA, MANJIT and renal arteries are patent. No evidence of pulmonary embolism. The lungs are clear. 3 cm right thyroid nodule. Diffuse fatty liver.Gastric banding is noted.The spleen, pancreas, adrenal glands and kidneys are wit hin normal limits for arterial phase imaging. No bowel obstruction, free fluid or abscess.Appendectomy.No pathologic enlarged lymphadenopathy ident ified. No fracture or worrisome bone lesion seen. The uterus appears is enlarged. IMPRESSION: No acute aortic finding is demonstrated.
[2022-09-11] MEDS ORDERED: MORPHINE 4 MG/ML SYR ONE (22:05)
[2022-09-11] MEDS ORDERED: ONDANSETRON 4 MG/2 ML VIAL ONE (22:05)
--- NOTE | 2022-09-11 22:12 | ER ---
Nurse's Notes [facility] Name: Shasta Coronado Age: 42 yrs Sex: Female : 1980 Arrival Date: 09/11/2022 Time: 17:55 Bed 6 Private MD: Dar Walker Diagnosis: Unstable angina;Upper abdominal pain, unspecified Presentation: 09/11 18:17 Chief complaint: Patient states: nausea, lower back pain x1 week. Patient also reports cm10 bilateral flank painX1 week no urinary symptoms. Pt also reports Left sided chest pain X45 minutes that radiates down her left arm and up her face. Coronavirus screen: Vaccine status: Patient reports being unvaccinated. Client denies travel out of the [place] in the last 14 days. Ebola Screen: Patient denies travel to an Ebola-affected area in the 21 days before illness onset. No symptoms or risks identified at this time. Initial Sepsis Screen: Does the patient meet any 2 criteria? No. Patient's initial sepsis screen is negative. Does the patient have a suspected source of infection? No. Patient's initial sepsis screen is negative. Risk Assessment: Do you want to hurt yourself or someone else? Patient reports no desire to harm self or others. Onset of symptoms was September 11, 2022. 18:17 Method Of Arrival: Ambulatory cm10 18:17 Acuity: DANIEL 3 cm10 Historical: - Allergies: 18:22 Losartan; cm10 18:22 Metformin HCl; cm10 - PMHx: 18:22 Atrial Fib; BRAIN TUMOR; diabetes mellitus; Hypertension; Myocardial infarction; cm10 Pneumonia; Pulmonary Embolism; Congestive heart failure; endocrine metaplasia syndrome; - PSHx: 18:22 Appendectomy; heart cath; Pituitary Surgery; cm10 - Immunization history:: Adult Immunizations unknown. - Social history:: Smoking status: Reported history of juuling and/or vaping. - Family history:: not pertinent. Vital Signs: 18:17 BP 153 / 118; Pulse 87; Resp 16; Temp 97.9; Pulse Ox 97% ; Weight 210.01 kg; Height 6 cm10 ft. 0 in. ; Pain 8/10; 18:17 Body Mass Index 62.79 (210.01 kg, 182.88 cm) cm10 18:17 Pain Scale: Adult cm10 ED Course: 17:57 Patient arrived in ED. im 17:57 Dar Walker DO is Private Physician. im 18:22 Triage completed. cm10 18:24 Arm band placed on. EKG completed in triage. Results shown to MD. cm10 18:37 Lexx Leigh MD is Attending Physician. rt 20:16 Inserted saline lock: 20 gauge in left antecubital area, using aseptic technique. Blood oe collected. 20:40 Radiology exam delayed due to IV insertion attempt and/or patient not having jg10 appropriate IV at this time. 20:46 Attending Physician role handed off by Lexx Leigh MD sp4 20:46 Efe Montalvo MD is Attending Physician. sp4 21:07 Antonio Peterson, DAVID is Primary Nurse. os 21:16 Accessed peripheral vein via ultrasound, utilizing dynamic ultrasound technique using os 20G Nexia IV catheter ,sterile technique, Clean \T\ dry. Dressing intact. Good blood return. 21:28 Angio Aorta For Dissection In Process Unspecified. EDMS 22:10 Ko Luna MD is Hospitalizing Provider. sp4 Administered Medications: 21:07 Drug: Nitroglycerin Sublingual 0.4 mg Route: Sublingual; os 22:05 Drug: morphine IVP or IV 4 mg Route: IVP; Infused Over: 4 mins; Site: right antecubital;os 22:37 Follow up: Response: No adverse reaction; Pain is decreased os 22:05 Drug: Ondansetron IVP 4 mg Route: IVP; Site: right antecubital; os 22:37 Follow up: Response: No adverse reaction os 09/12 01:14 Drug: Aspirin PO Chewable Tablet 324 mg Route: PO; kl Outcome: 09/11 22:11 Decision to Hospitalize by Provider. sp4 09/12 08:45 Patient left the ED. aa5 Signatures: Dispatcher [employer] EDMS Roxy Smith RN RN kl Calderon, Audri, RN RN aa5 Td Rodriguez Juliet jg10 Lexx Leigh MD MD rt Efe Montalvo MD MD sp4 Antonio Peterson, DAVID HERNANDEZ os Laura Brunson im Juliet Balbuena RN RN cm10
--- NOTE | 2022-09-11 22:12 | EDPHYS ---
Physician Documentation [facility] Name: Shasta Coronado Age: 42 yrs Sex: Female : 1980 Arrival Date: 09/11/2022 Time: 17:55 Bed 6 Private MD: Dar Walker ED Physician Efe Montalvo HPI: 09/11 20:40 This 42 yrs old Female presents to ER via Ambulatory with complaints of Abdominal Pain, rt Low Back Pain, Chest Pain. 20:40 Patient with prior history of NC, congestive heart failure presents to the ED with rt about 1 week of abdominal pain and flank pain radiating to the back. 45 minutes prior to arrival, she had episode of exertional chest pain with associated dyspnea that has modest improvement with rest. The symptoms are new. Denies other acute complaints at this time, symptoms are moderate in severity, no other aggravating or alleviating factors.. Historical: - Allergies: 18:22 Losartan; cm10 18:22 Metformin HCl; cm10 - PMHx: 18:22 Atrial Fib; BRAIN TUMOR; diabetes mellitus; Hypertension; Myocardial infarction; cm10 Pneumonia; Pulmonary Embolism; Congestive heart failure; endocrine metaplasia syndrome; - PSHx: 18:22 Appendectomy; heart cath; Pituitary Surgery; cm10 - Immunization history:: Adult Immunizations unknown. - Social history:: Smoking status: Reported history of juuling and/or vaping. - Family history:: not pertinent. ROS: 20:40 Constitutional: Negative for fever, chills, and weight loss, MS/Extremity: Negative for rt injury and deformity, Skin: Negative for injury, rash, and discoloration, Neuro: Negative for headache, weakness, numbness, tingling, and seizure, Psych: Negative for depression, anxiety, suicide ideation, homicidal ideation, and hallucinations. 20:40 Cardiovascular: Positive for chest pain, Negative for edema. 20:40 Respiratory: Positive for shortness of breath, Negative for cough. 20:40 Abdomen/GI: Positive for abdominal pain, Negative for vomiting. Exam: 20:40 Constitutional: This is a well developed, well nourished patient who is awake, alert, rt and in no acute distress. Head/Face: Normocephalic, atraumatic. Chest/axilla: Normal chest wall appearance and motion. Nontender with no deformity. No lesions are appreciated. Cardiovascular: Regular rate and rhythm with a normal S1 and S2. No gallops, murmurs, or rubs. Normal PMI, no JVD. No pulse deficits. Respiratory: Lungs have equal breath sounds bilaterally, clear to auscultation and percussion. No rales, rhonchi or wheezes noted. No increased work of breathing, no retractions or nasal flaring. Abdomen/GI: Soft, non-tender, with normal bowel sounds. No distension or tympany. No guarding or rebound. No evidence of tenderness throughout. Skin: Warm, dry with normal turgor. Normal color with no rashes, no lesions, and no evidence of cellulitis. MS/ Extremity: Pulses equal, no cyanosis. Neurovascular intact. Full, normal range of motion. Neuro: Awake and alert, GCS 15, oriented to person, place, time, and situation. Cranial nerves II-XII grossly intact. Motor strength 5/5 in all extremities. Sensory grossly intact. Cerebellar exam normal. Normal gait. Psych: Awake, alert, with orientation to person, place and time. Behavior, mood, and affect are within normal limits. 20:40 ECG was reviewed by the Attending Physician. Vital Signs: 18:17 BP 153 / 118; Pulse 87; Resp 16; Temp 97.9; Pulse Ox 97% ; Weight 210.01 kg; Height 6 cm10 ft. 0 in. ; Pain 8/10; 18:17 Body Mass Index 62.79 (210.01 kg, 182.88 cm) cm10 18:17 Pain Scale: Adult cm10 MDM: 18:42 Patient medically screened. rt 22:05 Differential diagnosis: arthritis, sciatica. Data reviewed: vital signs, nurses notes, sp4 lab test result(s), cardiac enzymes, CBC, electrolytes, hepatic panel, EKG, radiologic studies, CT scan. Consideration of Admission/Observation Patient was admitted/placed on observation. Escalation of care including admission/observation considered. Management of patient was discussed with the following: Hospitalist: Discussed with admission team. ED course: Patient's ACS work-up was unremarkable, CT aorta reveals no anomalies with no acute findings demonstrated on CTA aorta. Also no inflammation of the gallbladder visualized on the CAT scan. There is fatty liver and gastric banding. Otherwise normal CAT scan. Patient is having persistent active chest pain and thus warrants admission for chest pain control and monitoring in the hospital. Admission team was asked to admit patient to Dr. Luna. . 22:10 ED course: Condition on admit is stable.. sp4 09/11 18:43 Order name: Basic Metabolic Panel; Complete Time: 20:21 rt 09/11 18:43 Order name: CBC with Diff; Complete Time: 20:21 rt 09/11 18:43 Order name: LFT's; Complete Time: 20:21 rt 09/11 18:43 Order name: NT PRO-BNP; Complete Time: 20:21 rt 09/11 18:43 Order name: Troponin HS; Complete Time: 20:21 rt 09/11 19:54 Order name: Lipase; Complete Time: 20:21 rt 09/12 02:13 Order name: CBC with Automated Diff EDMS 09/12 02:30 Order name: Troponin High Sensitivity EDMS 09/12 02:33 Order name: Hemoglobin A1c EDMS 09/12 02:39 Order name: Basic Metabolic Panel EDMS 09/12 02:39 Order name: T4 Free EDMS 09/12 02:39 Order name: Thyroid Stimulating Hormone EDMS 09/12 07:53 Order name: Glucose, Ancillary Testing EDMS 09/12 08:14 Order name: Troponin High Sensitivity EDMS 09/11 20:04 Order name: Angio Aorta For Dissection; Complete Time: 21:42 EDMS 09/11 18:43 Order name: EKG; Complete Time: 18:44 rt 09/11 18:43 Order name: Cardiac monitoring; Complete Time: 20:29 rt 09/11 18:43 Order name: EKG - Nurse/Tech; Complete Time: 20:29 rt 09/11 18:43 Order name: IV Saline Lock; Complete Time: 20:29 rt 09/11 18:43 Order name: Labs collected and sent; Complete Time: 20:29 rt 09/11 18:43 Order name: O2 Per Protocol; Complete Time: 20:29 rt 09/11 18:43 Order name: O2 Sat Monitoring; Complete Time: 20:29 rt EC:40 Rate is 92 beats/min. Rhythm is regular, Normal Sinus Rhythm with No ectopy. QRS [place] rt is Normal. SD interval is normal. QRS interval is normal. QT interval is normal. No Q waves. T waves are Normal. No ST changes noted. Interpreted by me. Administered Medications: 21:07 Drug: Nitroglycerin Sublingual 0.4 mg Route: Sublingual; os 22:05 Drug: morphine IVP or IV 4 mg Route: IVP; Infused Over: 4 mins; Site: right antecubital;os 22:37 Follow up: Response: No adverse reaction; Pain is decreased os 22:05 Drug: Ondansetron IVP 4 mg Route: IVP; Site: right antecubital; os 22:37 Follow up: Response: No adverse reaction os 09/12 01:14 Drug: Aspirin PO Chewable Tablet 324 mg Route: PO; kl Disposition Summary: 09/11/22 22:11 Hospitalization Ordered Hospitalization Status: Observation sp4 Provider: Ko Luna Condition: Stable sp4 Problem: new sp4 Symptoms: have improved sp4 Bed/Room Type: Standard sp4 Location: Telemetry/MedSurg (observation)(09/12/22 07:52) iw Room Assignment: [facility](09/12/22 07:52) iw Diagnosis - Unstable angina sp4 - Upper abdominal pain, unspecified sp4 Forms: - Medication Reconciliation Form sp4 - SBAR form sp4 Signatures: Dispatcher [employer] EDMS Roxy Smith RN RN kl Cooper Arellano PA PA jmm Williams, Irene RN RN iw Danial Martinez FNP-Marifer LISAP-Raven Cabral RN DAVID cg Lexx Leigh MD MD rt Potepalov, Sergey, MD MD sp4 Antonio Peterson RN RN os Juliet Balbuena RN RN cm10 Corrections: (The following items were deleted from the chart) 09/11 20:04 18:44 Dissection W/ Wo Con+CT.RAD.BRZ ordered. EDMS EDMS 23:00 22:11 Telemetry/MedSurg (observation) sp4 cg 23:00 22:11 sp4 cg 09/12 07:52 09/11 23:00 [facility] ER HOLD cg iw 09/12 07:52 09/11 23:00 ERHOLD- cg iw
--- NOTE | 2022-09-11 22:29 | P.HP ---
Certification for Inpatient Patient admitted to: Observation With expected LOS: <2 Midnights Patient will require the following post-hospital care: None Practitioner: I am a practitioner with admitting privileges, knowledge of patient current condition, hospital course, and medical plan of care. Services: Services provided to patient in accordance with Admission requirements found in Title 42 Section 412.3 of the Code of Federal Regulations Patient History Date of Service: 09/11/22 Reason for admission: Chest pain History of Present Illness: 42-year-old female with history of paroxysmal atrial fibrillation, xnr-yajhbti-wrtrfzbga diabetes, hypertension, PE, chronic diastolic congestive heart failure, hyperlipidemia presents the emergency department chief complaint of chest pain, nausea, low back pain, abdominal pain. Of note she was seen at our facility on 09/02/2022 for flank pain and transfer to [facility] as she had mildly elevated LFTs and her ultrasound showed some possible sludge/stone or mass in her biliary duct. She reports that when she was at [facility] she had an MRCP performed which was unremarkable she did not require any surgical intervention and she was told that she had nonalcoholic fatty liver from the GI doctor. She was instructed to follow-up with GI on outpatient basis which she has an appointment for. The pain that she is experienced today is very different, she describes a sharp/pressure-like left-sided chest pain rating to left arm/left neck also some generalized abdominal discomfort. She was evalu ated in the emergency department her labs today show improvement/normal LFTs, sodium 134 glucose 140 hemoglobin 15.4 hematocrit 47.4 initial high-sensitivity troponin 4.0 EKG without STEMI criteria CT angio/aorta was performed which was negative for acute aortic findings, negative for PE shows diffuse fatty liver. ED provider wishes to admit under observation for ACS rule out. Patient reports last heart catheterization approximate 3 to 5 years ago and normal, has not had any further testing since then. Allergies No Known Drug Allergies Allergy (Unverified 03/27/14 17:42) Unknown - Past Medical/Surgical History -: Paroxysmal atrial fibrillation -: Pulmonary embolism -: Chronic diastolic congestive heart failure -: Nonalcoholic fatty liver -: Hypertension -: Hyperlipidemia -: Tfq-olyzwre-nzzhfuynn diabetes Past Surgical History: Reviewed- Non-Contributory Psychosocial/ Personal History: Patient lives at home with family - Social History Smoking Status: Current every day smoker (Vape) Alcohol use: No CD- Drugs: No Caffeine use: Yes Place of Residence: Home Review of Systems 10-point ROS is otherwise unremarkable Cardiovascular: Chest Pain Gastrointestinal: Nausea, Abdominal Pain Physical Examination - Physical Exam General: Alert, In no apparent distress, Oriented x3, Obese HEENT: Atraumatic, PERRLA, Mucous membr. moist/pink, EOMI, Sclerae nonicteric Neck: Supple, 2+ carotid pulse no bruit, No LAD, Without JVD or thyroid abnormality Respiratory: Clear to auscultation bilaterally, Normal air movement Cardiovascular: Regular rate/rhythm, Normal S1 S2 Capillary refill: <2 Seconds Gastrointestinal: Normal bowel sounds, Tenderness (Mild generalized abd pain) Musculoskeletal: No tenderness Integumentary: No rashes Neurological: Normal gait, Normal speech, Normal strength at 5/5 x4 extr, Normal tone, Normal affect - Studies Laboratory Data (last 24 hrs) 09/11/22 19:54: Lipase 41 09/11/22 19:40: WBC 7.90, Hgb 15.4 H, Hct 47.4 H, Plt Count 230 09/11/22 19:40: Sodium 134 L, Potassium 4.0, BUN 12, Creatinine 0.77, Glucose 140 H, Total Bilirubin 0.5, AST 19, ALT 30, Alkaline Phosphatase 106 Assessment and Plan - Plan Assessment: Chest pain rule out ACS Paroxysmal atrial fibrillation History of pulmonary embolism Diabetes mellitus type [id number] Hypertension Hyperlipidemia Chronic diastolic congestive heart failure Plan: Chest pain rule out ACS Trend troponins, monitor telemetry, cardiology consult in place. Last heart catheterization approximate 3 to 5 years ago no need for intervention, no follow-up testing since then. Received aspirin in the ED. Paroxysmal atrial fibrillation History of pulmonary embolism Patient prescribed anticoagulation but does not take it as it causes significant bleeding from her uterine fibroids. She has not been on anticoagulation for last few years. CT PE protocol negative for pulmonary embolism. Continue DVT prophylaxis. She is currently in sinus rhythm. Diabetes mellitus type [id number] ACHS Accu-Chek, sliding scale insulin. A1c in the morning. Hypertension Hyperlipidemia Continue medications Chronic diastolic congestive heart failure Appears compensated at this time, continue home medication. DVT PPX: Lovenox Code status: Full Discharge Plan: Home Plan to discharge in: 24 Hours - Advance Directives Does patient have a Living Will: No Does patient have a Durable POA for Healthcare: No - Code Status/Comfort Care Code Status Assessed: Yes (Full code) Critical Care: No Time Spent Managing Pts Care (In Minutes): 55
[2022-09-11] MEDS ORDERED: ASPIRIN 81 MG CHEWABLE TABLET ONE (23:39)
[2022-09-12 02:12] LABS: Absolute Lymphocytes (CBC) 2.4 K/uL (0.7-4.9); Hematocrit 43.1 % (36.0-45.0); Lymphocytes % 34.5 % (15.3-44.8); MCV 84.7 fL (80-100); MPV 7.8 fL (7.6-11.3); RBC Red Blood Cell Count 5.09 M/uL (3.86-4.86)
[2022-09-12 02:38] LABS: Potassium 3.7 mEq/L (3.5-5.1); Thyroid Stimulating Hormone 2.36 uIU/mL (0.358-3.740)
[2022-09-12 05:28] VITALS: BMI 62.8
[2022-09-12] MEDS: ONDANSETRON 4 MG/2 ML VIAL IV PRN ×3 (05:45→18:37)
[2022-09-12] MEDS: MORPHINE 2 MG/ML SYR IV PRN ×3 (05:45→18:37)
[2022-09-12] MEDS ORDERED: MORPHINE 2 MG/ML SYR ONE (05:48)
[2022-09-12] MEDS ORDERED: ONDANSETRON 4 MG/2 ML VIAL ONE (05:50)
[2022-09-12] MEDS: INSULIN -REGULAR HUMAN 50 UNIT/0.5 ML ML SQ SCH ×4 (07:30→20:07)
[2022-09-12] MEDS: ASPIRIN EC 81 MG TAB PO SCH (09:04)
[2022-09-12] MEDS: SPIRONOLACTONE 25 MG TABLET PO SCH (09:05)
[2022-09-12] MEDS: ENOXAPARIN 40 MG/0.4 ML SQ SCH (13:49)
--- NOTE | 2022-09-12 15:56 | P.PN ---
Subjective Date of Service: 09/12/22 Chief Complaint: Chest pain No acute events since admission. She states that her chest discomfort is still present, and seems to be worse with exertion. She states that the pain radiates up her neck and down her left arm. She denies any palpitations or shortness of breath. Review of Systems 10-point ROS is otherwise unremarkable Cardiovascular: Chest Pain Physical Examination - Vital Signs Temperature: 97.2 F Blood Pressure: 143/76 Pulse: 70 Respirations: 16 Pulse Ox (%): 96 - Physical Exam General: Alert, In no apparent distress, Oriented x3 HEENT: Atraumatic, Mucous membr. moist/pink, Sclerae nonicteric Neck: JVD not distended Respiratory: Clear to auscultation bilaterally, Normal air movement Cardiovascular: No edema, Regular rate/rhythm, Normal S1 S2, No gallops, No rubs, No murmurs Gastrointestinal: Normal bowel sounds, Soft and benign, Non-distended, No tenderness, No rebound, No guarding Musculoskeletal: No clubbing Integumentary: No rashes Neurological: Normal speech, Normal affect - Studies Laboratory Data (last 24 hrs) 09/11/22 19:54: Lipase 41 09/11/22 19:40: WBC 7.90, Hgb 15.4 H, Hct 47.4 H, Plt Count 230 09/11/22 19:40: Sodium 134 L, Potassium 4.0, BUN 12, Creatinine 0.77, Glucose 140 H, Total Bilirubin 0.5, AST 19, ALT 30, Alkaline Phosphatase 106 Assessment And Plan - Plan # Chest Pain - concern for Angina # Chronic Compensated Diastolic Congestive Heart Failure # Hypertension # Hyperlipidemia - Evaluation thus far: - EKG: without STEMI criteria, trend - Serial troponin: 4.0 -> 4.8 -> 4.6 - Ordered transthoracic echocardiogram - CT dissection protocol = "no acute aortic finding is demonstrated." - Management plan: - Consulted Cardiology and spoke with Dr. Natarajan - recommendations appreciated - Plan for nuclear stress test on 09/14/2022 - Continue aspirin, atorvastatin, spironolactone - Consider adding beta-chan as tolerated - RUSSELL-inhibitor/ARB not started due to losartan allergy # Type II Diabetes Mellitus - Hgb A1c = 7.1% - Correction scale insulin - Hold home semaglutide, sitagliptin, glipizide, and dapagliflozin while hospitalized # Paroxysmal Atrial Fibrillation - currently Normal Sinus Rhythm # History of Pulmonary Embolism - Does not take anticoagulation at home due to bleeding uterine fibroids # Morbid Obesity s/p Gastric Band - BMI 62.8 kg/m2 # Non-Alcoholic Fatty Liver Disease - Lifestyle modifications - Follow-up with PCP # Right Thyroid Nodule (3 cm) - Noted on CT scan - Follow-up with PCP for further evaluation Ko Luna M.D.
[2022-09-12] MEDS: ATORVASTATIN 40 MG TAB PO SCH (20:38)
[2022-09-12] MEDS ORDERED: hydrOXYzine HCL 25 MG TAB PO PRN (20:48)
[2022-09-12] MEDS: GABAPENTIN 300 MG CAP PO SCH (21:16)
[2022-09-12] MEDS: TRAZODONE 50 MG TABLET PO SCH (21:16)
[2022-09-12] MEDS ORDERED: METOPROLOL TAR 50 MG TAB ONE (21:20)
[2022-09-13] MEDS: MORPHINE 2 MG/ML SYR IV PRN ×3 (00:18→12:15)
[2022-09-13] MEDS: ONDANSETRON 4 MG/2 ML VIAL IV PRN ×3 (00:18→12:15)
[2022-09-13 03:45] LABS: Hematocrit 40.7 % (36.0-45.0); Lymphocytes % 40.5 % (15.3-44.8); MCV 84.6 fL (80-100); MPV 7.8 fL (7.6-11.3); RBC Red Blood Cell Count 4.81 M/uL (3.86-4.86)
[2022-09-13 04:01] LABS: Potassium 3.9 mEq/L (3.5-5.1)
[2022-09-13] MEDS: INSULIN -REGULAR HUMAN 50 UNIT/0.5 ML ML SQ SCH ×4 (07:30→20:58)
[2022-09-13] MEDS: Dapagliflozin Propanediol [Farxiga] 10 MG Tablet PO SCH (09:00)
[2022-09-13] MEDS ORDERED: SPIRONOLACTONE 25 MG TABLET PO SCH (09:00)
[2022-09-13] MEDS ORDERED: HOME MED 1 EA UNK (Sitagliptin Phosphate [Januvia] 50 MG Tablet) PO SCH (09:00)
[2022-09-13] MEDS ORDERED: [UNRECOGNIZED DRUG - OTHER] PO SCH (09:00)
[2022-09-13] MEDS: ALOGLIPTIN BENZOATE 12.5 MG TABLET PO SCH (09:52)
[2022-09-13] MEDS: ENOXAPARIN 40 MG/0.4 ML SQ SCH (09:52)
[2022-09-13] MEDS: AMLODIPINE 10 MG TAB PO SCH (09:53)
[2022-09-13] MEDS: hydroCHLOROthiazide 25 MG TAB PO SCH (09:53)
[2022-09-13] MEDS: SPIRONOLACTONE 25 MG TABLET PO SCH (09:53)
[2022-09-13] MEDS: METOPROLOL TAR 50 MG TAB PO SCH (09:54)
[2022-09-13] MEDS: GABAPENTIN 300 MG CAP PO SCH ×3 (09:54→20:58)
[2022-09-13] MEDS: ASPIRIN EC 81 MG TAB PO SCH (09:54)
--- NOTE | 2022-09-13 13:44 | P.PN ---
Subjective Date of Service: 09/13/22 Chief Complaint: Chest pain Overnight, she continued to have intermittent episodes of chest discomfort. She states that it feels like indigestion, but she is unsure. She states that the pain is leftsided and radiates up her neck. She states that it occurs without any obvious inciting or alleviating factors. Per discussion with Dr. Natarajan yesterday, recommendation is for a nuclear stress test; however, these are unavailable over the weekend. She denies any palpitations or shortness of breath. Review of Systems 10-point ROS is otherwise unremarkable Cardiovascular: Chest Pain Gastrointestinal: Nausea Physical Examination - Vital Signs Temperature: 99.4 F Blood Pressure: 124/70 Pulse: 85 Respirations: 20 Pulse Ox (%): 95 Assessment And Plan - Plan - Physical Exam General: Alert, In no apparent distress, Oriented x3 HEENT: Atraumatic, Sclerae nonicteric Neck: JVD not distended Respiratory: Clear to auscultation bilaterally, Normal air movement Cardiovascular: No edema, Regular rate/rhythm, No murmurs Gastrointestinal: Normal bowel sounds, Soft, Non-distended, No tenderness Musculoskeletal: No clubbing Integumentary: No rashes Neurological: Normal speech, Normal affect # Chest Pain - concern for Angina # Chronic Compensated Diastolic Congestive Heart Failure # Hypertension # Hyperlipidemia - Evaluation thus far: - EKG: without STEMI criteria, trend - Serial troponin: 4.0 -> 4.8 -> 4.6 - Ordered transthoracic echocardiogram - CT dissection protocol = "no acute aortic finding is demonstrated." - Management plan: - Consulted Cardiology and spoke with Dr. Natarajan - recommendations appreciated - Plan for nuclear stress test on 09/14/2022 - NPO past midnight - Continue aspirin, atorvastatin, spironolactone - Consider adding beta-chan as tolerated - RUSSELL-inhibitor/ARB not started due to losartan allergy # Type II Diabetes Mellitus - Hgb A1c = 7.1% - Correction scale insulin - Continue home alogliptin and dapagliflozin # Paroxysmal Atrial Fibrillation - currently Normal Sinus Rhythm # History of Pulmonary Embolism - Does not take anticoagulation at home due to bleeding uterine fibroids # Morbid Obesity s/p Gastric Band - BMI 62.8 kg/m2 # Non-Alcoholic Fatty Liver Disease - Lifestyle modifications - Follow-up with PCP # Right Thyroid Nodule (3 cm) - Noted on CT scan - Follow-up with PCP for further evaluation Ko Luna M.D.
[2022-09-13] MEDS ORDERED: LORazepam 2 MG/ML VIAL IV ONE (13:53)
[2022-09-13] MEDS: FAMOTIDINE 20 MG TAB PO PRN (13:55)
--- NOTE | 2022-09-13 14:25 | EKG ---
Test Date: 2022-09-11 Test Time: 18:30:00 Apartment Rental Clerk: MUKESH MEASUREMENT RESULTS: Intervals: Rate: 92 MO: 152 QRSD: 84 QT: 372 QTc: 460 [place]: P: 8 MO: 152 QRS: 13 T: 27 INTERPRETIVE STATEMENTS: Normal sinus rhythm Normal ECG Compared to ECG 09/02/2022 03:15:38 Prolonged QT interval no longer present Electronically Signed On 09-13-22 14:22:19 CDT by Terence Natarajan
--- NOTE | 2022-09-13 16:56 | RAD REPORT ---
EXAM DESCRIPTION: US - Abdomen Exam Complete - 09/13/2022 4:45 pm CLINICAL HISTORY: Abdominal pain. abdominal pain, nausea, vomiting COMPARISON: Abdomen Exam Limited dated 09/02/2022 FINDINGS: Diffuse fatty liver. Hepatic size is mildly enlarged measuring 20 cm. The gallbladder demonstrates no gallstones, pericholecystic fluid or gallbladder wall thickening. Co mmon bile duct is normal in caliber measuring 5 millimeters. Both kidneys are normal in size, shape and echotexture. No hydronephrosis, focal lesion of concern or perinephric fluid. The spleen is mildly enlarged measuring 15 cm. The pancreas and aorta are obscured by bowel gas. The visualized aspects of the IVC are grossly normal. IMPRESSION: Diffuse fatty liver is present. Moderate splenomegaly.
[2022-09-13] MEDS ORDERED: PROMETHAZINE INJ 25 MG/ML AMP IV PRN (17:35)
[2022-09-13] MEDS ORDERED: PROMETHAZINE INJ 25 MG/ML AMP IV ONE (20:18)
[2022-09-13] MEDS ORDERED: LOPERAMIDE HCL 2 MG CAPSULE PO STA (20:19)
--- NOTE | 2022-09-13 20:21 | CON ---
Date of Consultation: 09/13/2022 Reason For Consultation: Chest pain. History Of Present Illness: A 42-year-old female, morbidly obese with history of diabetes, paroxysma l fibrillation, hypertension, PE, diastolic heart failure, dyslipidemia, presented to the emergency r oom with nausea and lower abdominal pain. Also, she started having pain to the left upper extremitie s and in the left upper chest that is a pressure like. No shortness of breath and no diaphoresis. A t the time of my evaluation, she was chest pain free. She apparently had a left heart catheterizatio n 3-4 years ago at [facility] as per her report that was totally internally normal. Past Medical History: As outlined above in HPI. Medications: Refer to reconciliation sheet for detailed list. Allergies: LOSARTAN AND METFORMIN. Family History: No premature coronary artery disease or cancer. Social History: She does not smoke or drink. Does not use any drugs. Review of Systems: All systems reviewed and they were negative except what mentioned in HPI. Physical Examination: Vital Signs: Reviewed. Head and Neck: Pupils are equal, reactive to light. Intact eye movements. No JVD. No cervical lym phadenopathy. Neck is supple. Thyroid is not enlarged. Lungs: Clear to auscultation bilaterally. No rhonchi, wheezing, or crackles. No accessory muscle u se. Heart: Regular rate and rhythm. No extra sounds. Abdomen: Soft, nontender. Bowel sounds positive. No organomegaly. No masses or hernia. No rigidi ty or rebound. Extremities: No edema, clubbing, or cyanosis. Intact pulses. Skin: No rash. Neurologic: Alert, awake, oriented x3. No acute focal deficits appreciated. Lymph Nodes: No cervical or axillary lymphadenopathy. Investigations: BUN 13, creatinine 0.78. Troponins x3 are negative and her NT-proBNP is normal and hemoglobin was 13.4. Assessment And Recommendations: 1.Chest pain. It is atypical, noncardiac likely. She had a normal heart catheterization 4 years ag o. It is very unlikely that she has built significant stenosis, significant coronary artery disease that will cause symptoms. As such, no further inpatient cardiac workup is recommended. She can eith er followup with her fleet service manager or we can see her on an outpatient basis and assess the need for a noninvasive ischemic testing like a stress test. 2.Dyslipidemia. Continue statin. 3.Diastolic heart failure. She appears to be euvolemic. Continue current management. SR/MODL Voice ID: [id number] Report ID: [id number]
[2022-09-13] MEDS ORDERED: ATORVASTATIN 40 MG TAB PO SCH (20:30)
[2022-09-13] MEDS: ATORVASTATIN 40 MG TAB PO SCH (20:57)
[2022-09-13] MEDS: TRAZODONE 50 MG TABLET PO SCH (20:57)
[2022-09-13] MEDS: NA CHLORIDE 0.9% 1,000 ML IV SCH (21:01)
[2022-09-14] MEDS: MORPHINE 2 MG/ML SYR IV PRN ×2 (05:29→11:25)
[2022-09-14] MEDS: NA CHLORIDE 0.9% 1,000 ML IV SCH (05:33)
[2022-09-14] MEDS: INSULIN -REGULAR HUMAN 50 UNIT/0.5 ML ML SQ SCH ×3 (07:30→16:30)
[2022-09-14] MEDS: Dapagliflozin Propanediol [Farxiga] 10 MG Tablet PO SCH (09:00)
[2022-09-14] MEDS: ALOGLIPTIN BENZOATE 12.5 MG TABLET PO SCH (09:48)
[2022-09-14] MEDS: ASPIRIN EC 81 MG TAB PO SCH (09:49)
[2022-09-14] MEDS: GABAPENTIN 300 MG CAP PO SCH ×2 (09:49→14:08)
[2022-09-14] MEDS: hydroCHLOROthiazide 25 MG TAB PO SCH (09:49)
[2022-09-14] MEDS: METOPROLOL TAR 50 MG TAB PO SCH (09:49)
[2022-09-14] MEDS: AMLODIPINE 10 MG TAB PO SCH (09:50)
[2022-09-14] MEDS: ENOXAPARIN 40 MG/0.4 ML SQ SCH (09:50)
[2022-09-14] MEDS: SPIRONOLACTONE 25 MG TABLET PO SCH (09:50)
[2022-09-14 10:43] VITALS: O2SAT 94
[2022-09-14] MEDS: FAMOTIDINE 20 MG TAB PO PRN (11:26)
--- NOTE | 2022-09-14 11:55 | P.PN ---
Date of Service: 09/14/22 Subjective: ROS: 10 point ROS as noted above, otherwise negative Physical Exam: GEN: Alert, oriented, NAD HEENT: Normal conjunctiva, sclera anicteric CV: Regular rate & rhythm, no edema Pulm: Nonlabered respiraitons on room air ABD: Soft, nontender, nondistended MSK: No joint tenderness Integumentary: No rashes Neuro: Normal speech, normal affect vitals reviewed Problem List: Chest Pain Chronic Compensated Diastolic CHF Hypertension Hyperlipidemia DM2 Paroxysmal Atrial Fibrillation - currently Normal Sinus Rhythm History of Pulmonary Embolism Morbid Obesity s/p Gastric Band - BMI 62.8 kg/m2 Non-Alcoholic Fatty Liver Disease Incidental Right Thyroid Nodule (3 cm) Chest Pain Chronic Compensated Diastolic CHF Hypertension Hyperlipidemia EKG: without STEMI criteria, trend troponins negative x3 TTE ordered CT dissection(09/11): "no acute aortic finding is demonstrated." Cardiology consulted tentative plan for stress test Continue aspirin, atorvastatin, spironolactone Consider adding beta-chan as tolerated RUSSELL-inhibitor/ARB not started due to losartan allergy DM2 Hgb A1c: 7.1 sliding scale insulin Continue home alogliptin and dapagliflozin Paroxysmal Atrial Fibrillation - currently Normal Sinus Rhythm History of Pulmonary Embolism Does not take anticoagulation at home due to bleeding uterine fibroids Morbid Obesity s/p Gastric Band - BMI 62.8 kg/m2 Non-Alcoholic Fatty Liver Disease Lifestyle modifications Follow-up with PCP Right Thyroid Nodule (3 cm) Noted on CT scan Follow-up with PCP for further evaluation VTE: Lovenox Code: Full Dispo: Home, pending stress test
[2022-09-14] MEDS: ONDANSETRON 4 MG/2 ML VIAL IV PRN (14:07)
[2022-09-14 16:10] VITALS: BP 137/93; TEMP 96.6
--- NOTE | 2022-09-14 17:12 | EKG ---
Test Date: 2022-09-13 Test Time: 15:20:44 Thread Reeler: PAVEL MEASUREMENT RESULTS: Intervals: Rate: 85 DE: 168 QRSD: 90 QT: 398 QTc: 473 [place]: P: 23 DE: 168 QRS: 21 T: 38 INTERPRETIVE STATEMENTS: Normal sinus rhythm Cannot rule out Anterior infarct, age undetermined Abnormal ECG Compared to ECG 09/11/2022 18:30:00 Myocardial infarct finding now present Electronically Signed On 09-14-22 17:10:05 CDT by Terence Natarajan
== END 2022-09-14 18:39 | disposition home or self-care (01) ==
LOC: ER 17:55 → ERHOLD 22:16 → 4TH 09-12 08:40
PROVIDERS: ADMIT Internal Medicine; ATTEND Hospitalist
DX: R07.9 Chest pain, unspecified (principal); I48.0 Paroxysmal atrial fibrillation; I50.32 Chronic diastolic (congestive) heart failure; I10 Essential (primary) hypertension; E78.5 Hyperlipidemia, unspecified; E11.9 Type 2 diabetes mellitus without complications; E04.1 Nontoxic single thyroid nodule; E66.01 Morbid (severe) obesity due to excess calories; R11.0 Nausea; M54.50 Low back pain, unspecified; R10.9 Unspecified abdominal pain; K76.0 Fatty (change of) liver, not elsewhere classified; F17.290 Nicotine dependence, other tobacco product, uncomplicated; Z86.711 Personal history of pulmonary embolism; Z68.44 Body mass index [BMI] 60.0-69.9, adult; Z71.3 Dietary counseling and surveillance
CPT/HCPCS: 93005 ×2; 85025 ×3; 80048 ×3; 36415 ×2; 82947 ×11; 80076; 84443; 83036; 84484 ×3; 84439; 83690; 83880; 71275; 74175; 76700; 96375; 96374; 99285; Q9967; J2550 ×2; J1650 ×3; J2270 ×8; J2405 ×8; J7030 ×2; G0378

== ENCOUNTER → 2023-04-17 | Emergency (ER) | payer OTHER ==
[~2023-04-17] MED LIST: ACETAMINOPHEN 500 MG TAB ONE; HYDROCODONE/APAP 5/325 MG TAB ONE; IBUPROFEN 400 MG TAB ONE
--- NOTE | 2023-04-17 14:13 | RAD REPORT ---
EXAM DESCRIPTION: RAD - Ankle Left 3 View -04/17/2023 1:59 pm CLINICAL HISTORY: Left ankle pain status post injury FINDINGS: No fracture or dislocation is seen.
--- NOTE | 2023-04-17 14:14 | RAD REPORT ---
EXAM DESCRIPTION: RAD - Ankle Right 3 View - 04/17/2023 1:59 pm CLINICAL HISTORY: Right ankle pain FINDINGS: No fracture or dislocation is seen. Large plantar calcaneal spur
--- NOTE | 2023-04-17 14:38 | EDPHYS ---
Physician Documentation [facility] Name: Shasta Coronado Age: 43 yrs Sex: Female : 1980 Arrival Date: 04/17/2023 Time: 12:57 Bed 15 Private MD: Dar Wlaker ED Physician Lexx Leigh HPI: 04/17 13:26 This 43 yrs old Female presents to ER via Unassigned with complaints of Fall Injury, sb4 bilateral ankle pain. 13:26 patient states that she was walking on concrete and slipped on something and fell. she sb4 states that she initially twisted her right ankle and while trying to stay balanced, she also twisted her left ankle. she subsequently fell to the ground and hit her head on the concrete. she denies loc or blood thinner use. no abrasions or lacerations. is complaining of pain to bilateral ankles, worse on the left. is able to bear weight. Historical: - Allergies: 13:20 Losartan; mb9 13:20 Metformin HCl; mb9 - PMHx: 13:20 Atrial Fib; BRAIN TUMOR; diabetes mellitus; Congestive heart failure; endocrine mb9 metaplasia syndrome; Hypertension; Myocardial infarction; Pneumonia; Pulmonary Embolism; - PSHx: 13:20 Appendectomy; heart cath; Pituitary Surgery; mb9 - Immunization history:: Adult Immunizations up to date. - Social history:: Smoking status: Reported history of juuling and/or vaping. ROS: 13:26 Constitutional: Negative for fever, chills, and weight loss, sb4 13:26 MS/extremity: Positive for pain, swelling, tenderness, bilateral ankles, 13:26 All other systems are negative, Exam: 13:26 Head/Face: Normocephalic, atraumatic. Eyes: Extra-ocular motions intact. Periorbital sb4 areas with no swelling, redness, or edema. ENT: Mucous membranes moist. Skin: Warm, dry with normal turgor. Normal color with no rashes, no lesions, and no evidence of cellulitis. Neuro: Awake and alert, GCS 15, oriented to person, place, time, and situation. Motor strength 5/5 in all extremities. Sensory grossly intact. 13:26 Constitutional: The patient appears alert, awake, obese, uncomfortable, 13:26 Musculoskeletal/extremity: Extremities: noted in the left lateral ankle, left medial ankle and anterior aspect of left ankle: decreased ROM, pain, swelling, tenderness, Vital Signs: 13:28 BP 145 / 113; Pulse 82; Resp 18; Temp 98.2; Pulse Ox 98% on R/A; Weight 211.83 kg; ph Height 6 ft. 0 in. ; 14:29 BP 143 / 119; Pulse 77; Resp 18; Pulse Ox 100% on R/A; mb9 13:28 Body Mass Index 63.34 (211.83 kg, 182.88 cm) ph MDM: 13:10 Patient medically screened. sb4 13:26 Differential diagnosis: contusion, fracture, sprain, strain. sb4 14:38 Data reviewed: vital signs, nurses notes, radiologic studies, and as a result, I will sb4 discharge patient. Test considered but Not performed: CT: head CT, patient's weight exceeds our CT limit. I have a low suspicion for any head trauma as there was no LOC, no blood thinner use, no neurologic deficits. Care significantly affected by the following chronic conditions: Diabetes, Hypertension, Congestive Heart Failure, Obesity. Counseling: I had a detailed discussion with the patient and/or guardian regarding the historical points, exam findings, and any diagnostic results supporting the discharge/admit diagnosis, the presence of at least one elevated blood pressure reading (>120/80) during this emergency department visit, radiology results, the need for outpatient follow up, a orthopedic surgeon, to return to the emergency department if symptoms worsen or persist or if there are any questions or concerns that arise at home. 04/17 13:26 Order name: Ankle Left 3 View XRAY; Complete Time: 14:14 4 04/17 13:26 Order name: Ankle Right 3 View XRAY; Complete Time: 14:18 sb4 04/17 14:23 Order name: Ice pack; Complete Time: 14:28 sb4 04/17 14:30 Order name: Ankle Splint: Aircast; Complete Time: 14:50 sb4 04/17 14:30 Order name: Crutches; Complete Time: 14:50 sb4 Administered Medications: 13:33 Drug: HYDROcodone-acetaminophen PO 5 mg-325 mg 2 tabs PO once Route: PO; mb9 14:28 Follow up: Response: No adverse reaction mb9 14:24 CANCELLED (Physician Discretion): [id number] mg PO once sb4 14:28 Drug: Ibuprofen PO 800 mg PO once Route: PO; mb9 14:50 Follow up: Response: No adverse reaction 9 14:28 Drug: Acetaminophen PO 325 mg PO once Route: PO; mb9 14:50 Follow up: Response: No adverse reaction 9 Disposition: 15:12 Co-signature as Attending Physician, Lexx Leigh MD I reviewed the patient's care rt provided by the Advanced Practice Provider and agree with the diagnosis and treatment plan. Chart complete. Chart complete. Chart complete. Chart complete. Chart complete. Disposition Summary: 04/17/23 14:37 Discharge Ordered Notes: Location: Home sb4 Problem: new sb4 Symptoms: have improved sb4 Condition: Stable sb4 Diagnosis - Sprain of unspecified ligament of left ankle, initial encounter sb4 Followup: sb4 - With: Nael Rojas MD - When: As needed - Reason: Further diagnostic work-up, Recheck today's complaints, Re-evaluation by your physician Discharge Instructions: - Discharge Summary Sheet sb4 - Crutch Use, Adult, [id number] sb4 - Ankle Sprain, [id number] sb4 Forms: - Medication Reconciliation Form sb4 - Thank You Letter sb4 - Antibiotic Education sb4 - Prescription Opioid Use sb4 - Patient Portal Instructions sb4 - Leadership Thank You Letter sb4 Signatures: Dispatcher [employer] EDAlexandra Slater, RN RN Tamra Perea PA-C PAAna María sb4 Rafaela Adam RN RN mb9 Lexx Leigh MD MD rt Corrections: (The following items were deleted from the chart) 13:39 13:26 Head Brain Wo Cont+CT.RAD.BRZ ordered. EDMS EDMS 14:24 14:23 Acetaminophen PO 1000 mg PO once ordered. sb4 sb4
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
[2023-04-17 15:56] VITALS: TEMP 98.2
[2023-04-17 16:09] VITALS: BP 143/119; O2SAT 100
== END ==
LOC: ER 12:57
DX: S93.402A Sprain of unspecified ligament of left ankle, initial encounter (principal); W01.0XXA Fall on same level from slipping, tripping and stumbling without subsequent striking against object, initial encounter; E11.9 Type 2 diabetes mellitus without complications; I11.0 Hypertensive heart disease with heart failure; I50.9 Heart failure, unspecified; I48.91 Unspecified atrial fibrillation; I25.2 Old myocardial infarction; Z79.84 Long term (current) use of oral hypoglycemic drugs; Z79.899 Other long term (current) drug therapy; Z87.891 Personal history of nicotine dependence

== ENCOUNTER 2023-09-14 19:21 | Emergency (ER) | payer OTHER ==
[2023-09-14] MEDS ORDERED: HYDROCODONE/APAP 5/325 MG TAB ONE (20:11)
[2023-09-14] MEDS ORDERED: KETOROLAC 30 MG/ML INJ ONE (21:46)
--- NOTE | 2023-09-14 21:53 | RAD REPORT ---
EXAM DESCRIPTION: Maria Teresa Single View09/14/2023 9:44 pm CLINICAL HISTORY: Chest pain COMPARISON: none FINDINGS: The lungs appear clear of acute infiltrate. The heart is mildly enlarged. laboratory monitor in place IMPRESSION: No acute abnormalities displayed
--- NOTE | 2023-09-14 21:54 | RAD REPORT ---
EXAM DESCRIPTION: RAD - Lumbar Spine 3 Views - 09/14/2023 9:44 pm CLINICAL HISTORY: Back pain FINDINGS: No fracture or dislocation is seen. Moderate disc space narrowing L3-4
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
[2023-09-14 22:28] VITALS: BP 148/77; TEMP 97.6; O2SAT 95
== END 2023-09-14 22:11 | disposition home or self-care (01) ==
LOC: ER 19:21
DX: S39.012A Strain of muscle, fascia and tendon of lower back, initial encounter (principal); R07.89 Other chest pain; R10.9 Unspecified abdominal pain; V49.40XA Driver injured in collision with unspecified motor vehicles in traffic accident, initial encounter
CPT/HCPCS: 71045; 72100